=== PATIENT | male | born 1945 | race Caucasian/White ===

== ENCOUNTER → 2023-07-01 | Outpatient (CLI) | payer MEDICARE, OTHER, SELFPAY ==
--- NOTE | 2023-07-01 07:52 | MRI_ITS ---
STUDY: MRI LUMBAR SPINE WITHOUT CONTRAST REASON FOR EXAM: Male, 77 years old. RADICULOPATHY TECHNIQUE: Standardized fat and water weighted pulse sequences were obtained in the sagittal and axial planes. COMPARISON: None FINDINGS: T12-L1: Normal endplates. Normal disc height, hydration and morphology. Normal bilateral facet joints. Normal central canal and bilateral lateral recesses. Normal bilateral intervertebral neural foramina. Normal lumbar lordosis. There is no substantial scoliosis. Normal conus medullaris that terminates at the T12/L1. Chronic mild wedge compression fracture of the T11 vertebral body with kyphosis but no retropulsion into the spinal canal. L1-2: Mild bilateral facet hypertrophy and the ligament flavum hypertrophy. Mild bilobed disc protrusion asymmetric to the left produces mild spinal stenosis and mild left neural foraminal stenosis.. L2-3: Moderate bilateral facet hypertrophy and ligament flavum hypertrophy. Mild bilobed disc protrusion asymmetric to the right produces mild spinal stenosis, moderate right neural foraminal stenosis and mild left neural foraminal stenosis. L3-4: Moderate bilateral facet hypertrophy with fluid in the facet joints consistent with instability and severe ligament flavum hypertrophy. Moderate broad disc protrusion produces severe spinal stenosis with moderate bilateral neural foraminal stenosis. Furthermore, there is a 1.2 cm oval capsular synovial cyst extending from the anterior aspect of the right facet joint into the right neural martins producing severe right neural foraminal stenosis with effacement of the right L3 nerve root laterally. L4-5: Mild bilateral facet hypertrophy and moderate ligament flavum hypertrophy. Mild broad disc protrusion produces mild spinal stenosis and mild bilateral neural foraminal stenosis. L5-S1: Normal endplates. Normal disc height, hydration and morphology. Normal bilateral facet joints. Normal central canal and bilateral lateral recesses. Normal bilateral intervertebral neural foramina. Normal visualized sacral ala. Moderate friction related edema in the posterior subcutaneous fat. MRI/Spine Lumbar (Routine) IMPRESSION: Multilevel degenerative changes, as described above. Electronically Signed: Ethan Nation MD at 8:11 EST ,
--- OUTSIDE RECORDS SUMMARY | 2023-07-01 07:56 | XMS RPT_ITS | CCD ---
Author Name Unknown Address [address] [place] [address] Organization [facility] Care Team Providers Care General Cleaner Name Role Phone WillissusieBruna Unavailable Unavailable Scott Pal MD Unavailable Scott Pal MD Unavailable Lia PT, Caroline Unavailable John Garcia MD Unavailable Agnes Diaz MD Primary Care Provider Scott Pal MD Unavailable Scott Pal MD Unavailable Lia PT, Caroline Unavailable John Garcia MD Unavailable Agnes Diaz MD Primary Care Provider Scott Pal MD Unavailable Lia PT, Caroline Unavailable Agnes Diaz MD Primary Care Provider Scott Pal MD Unavailable Scott Pal MD Unavailable Lia PT, Caroline Unavailable John Garcia MD Unavailable Agnes Diaz MD Primary Care Provider Lia PT, Caroline Unavailable John Garcia MD Unavailable [phone] Bruna Chowdary Attending Unavailable Cebul III, Dr. Dirk Dobbins Primary Care Unava ilable Self, Referral Referring Unavailable Cebul III, Dr. Dirk Dobbins Primary Care Unava ilable ASIF AHUMADA Attending Unavailable Bruna Chowdary Referring Unavailable Lia PT, Caroline Unavailable [phone] PODLOGAR, MARILIA Referring Unavailable AGNES DIAZ Primary Care Unavailab le PODLOGAR, MARILIA Attending Unavailable AGNES DIAZ Primary Care Unavailab le PODLOGAR, MARILIA Referring Unavailable AGNES DIAZ Primary Care Unavailab le PODLOGAR, MARILIA Attending Unavailable AGNES DIAZ Primary Care Unavailab le PODLOGAR, MARILIA Referring Unavailable AGNES DIAZ Primary Care Unavailab le PODLOGAR, MARILIA Attending Unavailable AGNES DIAZ Primary Care Unavailab le GOLIAS, KVNG Attending Unavailable AGNES DIAZ Primary Care Unavailab le PODLOGAR, MARILIA Referring Unavailable PODLOGAR, MARILIA Referring Unavailable GOLIAS, KVNG Attending Unavailable AGNES DIAZ Primary Care Unavailab le PODLOGAR, MARILIA Referring Unavailable GOLIAS, KVNG Attending Unavailable AGNES DIAZ Primary Care Unavailab le GOLIAS, KVNG Attending Unavailable AGNES DIAZ Referring Unavailab le AGNES DIAZ Primary Care Unavailab le PODLOGAR, MARILIA Referring Unavailable GOLIAS, KVNG Attending Unavailable AGNES DIAZ Primary Care Unavailab le PODLOGAR, MARILIA Referring Unavailable GOLIAS, KVNG Attending Unavailable AGNES DIAZ Primary Care Unavailab le GOLIAS, KVNG Attending Unavailable AGNES DIAZ Primary Care Unavailab le PODLOGAR, MARILIA Referring Unavailable PODLOGAR, MARILIA Referring Unavailable GOLIASKVNG Attending Unavailable AGNES DIAZ Primary Care Unavailab le PODLOGAR, MARILIA Referring Unavailable Baylee'SHERRELL ANDERSON Attending Unavailable AGNES DIAZ Primary Care Unavailab le GOLIAS, KVNG Attending Unavailable AGNES DIAZ Primary Care Unavailab le PODLOGAR, MARILIA Referring Unavailable PODLOGAR, MARILIA Referring Unavailable AGNES DIAZ Primary Care Unavailab le Allergies Allergy Classification Reported Allergen(s) Allergy Type Date of Onset Reaction(s) Facility (3 sources) Azithromycin Drug Allergy 4 Dept. of Dermatology (20 sources) amLODIPine; Translations: [AMLODIPINE BESYLATE] Drug Allergy 7 Swelling [facility] (20 sources) Azithromycin; Translations: [AZITHROMYCIN] Drug Allergy 5 Itching [facility] Work Phone: (20 sources) Venom-Wasp; Translations: [VENOM-WASP] Propensity to adverse reactions 5 Swelling [facility] Work Phone: Medications Current Medications Medication Drug Class(es) Dates Sig (Normalized) Sig (Original) benzonatate 100 mg oral capsule (1 source) Non-narcotic Antitussive Start: 05-23-2022 End: 06-07-2022 take 1 capsule by mouth every eight hours as needed for cough benzonatate (TESSALON PERLE) 100 mg capsule Indications: URI, acute Take 1 capsule by mouth every 8 hours as needed for cough for up to 15 days. 30 capsule 0 05/23/2022 06/07/2022 Active Completed/Discontinued Medications Medication Drug Class(es) Dates Sig (Normalized) Sig (Original) 8 hr acetaminophen 650 mg extended release oral tablet (20 sources) acetaminophen 65 0 mg CR tablet Take 650 mg by mouth as needed. 0 Active Problems Active Problems Problem Classification Problem Date Documented Date Episodic/Chronic Administrative/social admission (1 source) Advance directive discussed with patient; Translations: [Other specified counseling] Episodic Chronic kidney disease (20 sources) Chronic kidney disease stage 3A ; Translations: [Stage 3a chronic kidney disease] Onset: 0 04-29-2020 Chronic Chronic kidney disease (2 sources) Chronic kidney disease; Translations: [Stage 3a chronic kidney disease (HCC)] Onset: 0 Coronary atherosclerosis and other heart disease (20 sources) Coronary arteriosclerosis; Translations: [Atherosclerotic heart disease of [place] coronary artery without angina pectoris] Onset: 7 09-14-2016 Chronic Delirium, dementia, and amnestic and other cognitive disorders (20 sources) Senile asthenia; Translations: [Age-related physical debility] Onset: 2 Chronic Disorders of lipid metabolism (20 sources) Hyperlipidemia; Translations: [Hyperlipidemia, unspecified] Onset: 7 09-14-2016 Chronic Essential hypertension (20 sources) Benign essential hypertension; Translations: [Essential (primary) hypertension] Onset: 5 05-13-2019 Chronic Hyperplasia of prostate (20 sources) Benign prostatic hypertrophy with outflow obstruction; Translations: [Benign prostatic hyperplasia with lower urinary tract symptoms] Onset: 7 05-10-2016 Chronic Immunizations and screening for infectious disease (3 sources) Vaccination needed; Translations: [Encounter for immunization] Onset: 4 Episodic Joint disorders and dislocations; trauma-related (20 sources) Derangement of right knee; Translations: [Unspecified internal derangement of right knee] Onset: 3 05-07-2012 Chronic Neoplasms of unspecified nature or uncertain behavior (8 sources) Neoplasm of unspecified behavior of bone, soft tissue, and skin; Translations: [Neoplasm of uncertain behavior of skin] Onset: 5 Episodic Osteoarthritis (20 sources) Arthritis of hip; Translations: [Unilateral primary osteoarthritis, unspecified hip] Onset: 9 06-08-2018 Chronic Other and unspecified benign neoplasm (6 sources) Hemangioma of skin and subcutaneous tissue Onset: 5 Episodic Other and unspecified benign neoplasm (9 sources) Melanocytic nevi of other parts of face Onset: 8 Episodic Other and unspecified benign neoplasm (3 sources) Melanocytic nevi of trunk Onset: 1 Episodic Other and unspecified benign neoplasm (12 sources) Melanocytic nevi of right upper limb, including shoulder Onset: 0 Episodic Other and unspecified benign neoplasm (3 sources) Melanocytic nevi of left upper limb, including shoulder Onset: 1 Episodic Other and unspecified benign neoplasm (3 sources) Melanocytic nevi of right lower limb, including hip Onset: 1 Episodic Other and unspecified benign neoplasm (3 sources) Melanocytic nevi of left lower limb, including hip Onset: 1 Episodic Other connective tissue disease (1 source) History of total hip arthroplasty; Translations: [Presence of right artificial hip joint] Chronic Other diseases of bladder and urethra (20 sources) Bladder neck obstruction; Translations: [Bladder-neck obstruction] Onset: 7 06-01-2006 Chronic Other diseases of kidney and ureters (20 sources) Renal mass; Translations: [Other specified disorders of kidney and ureter] Onset: 3 02-04-2013 Chronic Other ear and sense organ disorders (1 source) Acute otitis externa of right ear; Translations: [Unspecified acute noninfective otitis externa, right ear] Episodic Other hereditary and degenerative nervous system conditions (20 sources) Intention tremor; Translations: [Other specified forms of tremor] Onset: 3 05-07-2012 Chronic Other injuries and conditions due to external causes (1 source) At high risk for fall; Translations: [History of falling] Episodic Other nervous system disorders (20 sources) Bilateral carpal tunnel syndrome; Translations: [Carpal tunnel syndrome, bilateral upper limbs] Onset: 0 11-20-2019 Chronic Other nervous system disorders (1 source) Other chronic pain; Translations: [Chronic bilateral low back pain with bilateral sciatica] Onset: 3 Chronic Other non-epithelial cancer of skin (12 sources) Personal history of other malignant neoplasm of skin Onset: 9 Episodic Other nutritional; endocrine; and metabolic disorders (20 sources) Obesity; Translations: [Other obesity due to excess calories] Onset: 0 01-12-2021 Chronic Other nutritional; endocrine; and metabolic disorders (20 sources) Obese class II; Translations: [Obesity, unspecified] Onset: 0 04-29-2020 Chronic Other nutritional; endocrine; and metabolic disorders (20 sources) Body mass index 40+ - severely obese; Translations: [Morbid (severe) obesity due to excess calories] Onset: 3 Chronic Other nutritional; endocrine; and metabolic disorders (20 sources) Obesity caused by energy imbalance; Translations: [Other obesity due to excess calories] Onset: 0 01-12-2021 Chronic Other nutritional; endocrine; and metabolic disorders (1 source) Morbid (severe) obesity due to excess calories; Translations: [Obesity, Class III, 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)] Onset: 3 Chronic Other screening for suspected conditions (not mental disorders or infectious disease) (3 sources) Encounter for screening for malignant neoplasm of skin Onset: 1 Episodic Other skin disorders (3 sources) Actinic keratosis Onset: 1 Episodic Other skin disorders (6 sources) Actinic keratosis Onset: 6 Episodic Other skin disorders (6 sources) Other specified follicular disorders Onset: 7 Episodic Other skin disorders (6 sources) Other melanin hyperpigmentation Onset: 6 Episodic Other skin disorders (6 sources) Inflamed seborrheic keratosis Onset: 8 Episodic Other skin disorders (6 sources) Other seborrheic keratosis Onset: 6 Episodic Other upper respiratory infections (1 source) Acute upper respiratory infection; Translations: [Acute upper respiratory infection, unspecified] Episodic Residual codes; unclassified (20 sources) Obstructive sleep apnea syndrome; Translations: [Obstructive sleep apnea (adult) (pediatric)] Onset: 7 02-05-2021 Chronic Thyroid disorders (20 sources) Hypothyroidism; Translations: [Hypothyroidism, unspecified] Onset: 9 04-30-2015 Chronic Unclassified (3 sources) Verruca Onset: 1 Unclassified (3 sources) Angioma Onset: 1 Unclassified (3 sources) Chronic solar damage Onset: 1 Unclassified (3 sources) Seborrheic Keratosis Onset: 1 Unclassified (3 sources) Lentigines Onset: 1 Past or Other Problems Problem Classification Problem Date Documented Date Episodic/Chronic Diabetes mellitus without complication (3 sources) Increased glucose level; Translations: [Other abnormal glucose] Onset: 11-02-2022 Episodic Genitourinary symptoms and ill-defined conditions (20 sources) Nocturia; Translations: [Nocturia] Onset: 01-15-2013 01-15-2013 Episodic Other connective tissue disease (20 sources) Diastasis recti; Translations: [Separation of muscle (nontraumatic), other site] Onset: 10-09-2013 10-09-2013 Episodic Other connective tissue disease (20 sources) Pain in buttock; Translations: [Myalgia, other site] Onset: 02-04-2019 02-04-2019 Episodic Other diseases of kidney and ureters (20 sources) Complex renal cyst; Translations: [Cyst of kidney, acquired] Onset: 02-14-2013 02-14-2013 Episodic Other diseases of veins and lymphatics (20 sources) Peripheral venous insufficiency; Translations: [Venous insufficiency (chronic) (peripheral)] Onset: 04-29-2020 04-29-2020 Episodic Other injuries and conditions due to external causes (20 sources) History of fall; Translations: [History of falling] Onset: 12-08-2021 Episodic Other lower respiratory disease (3 sources) Mass of right lower lobe of lung; Translations: [Other nonspecific abnormal finding of lung field] Onset: 02-04-2013 02-04-2013 Episodic Other lower respiratory disease (20 sources) Other nonspecific abnormal finding of lung field; Translations: [Swelling, mass, or lump in chest] Onset: 02-04-2013 02-04-2013 Episodic Other non-traumatic joint disorders (20 sources) Ankle edema; Translations: [Effusion, right ankle] Onset: 02-04-2019 02-04-2019 Episodic Pancreatic disorders (not diabetes) (20 sources) Mass of pancreas; Translations: [Other specified diseases of pancreas] Onset: 05-12-2014 05-12-2014 Episodic Residual codes; unclassified (20 sources) Bilateral lower limb edema; Translations: [Localized edema] Onset: 04-29-2020 04-29-2020 Episodic Residual codes; unclassified (1 source) Localized edema; Translations: [Bilateral leg edema] Onset: 04-29-2020 Episodic Spondylosis; intervertebral disc disorders; other back problems (20 sources) Cervical radiculopathy; Translations: [Radiculopathy, cervical region] Onset: 02-08-2021 Episodic Unclassified (3 sources) Onset: 02-14-2014 Unclassified (3 sources) Onset: 02-14-2014 Unclassified (3 sources) Onset: 02-14-2014 Unclassified (3 sources) Onset: 02-14-2014 Results Test Name Value Interpretation Reference Range Facil ity Vital Signs Date Time Vital Sign Value Performing Clinician Caprice jalloh 06-16-2023 11:38-0500 Diastolic blood pressure 97 mm[Hg] Marilia Orozco APRN.CNP Work Phone: [facility] 06-16-2023 11:38-0500 Heart rate 66 /min Marilia Podlogar COPYRIGHT EXPERT.COMMISSARY HELPER Work Phone: [facility] 06-16-2023 11:38-0500 Systolic blood pressure 161 mm[Hg] Marilia Podlogar COPYRIGHT EXPERT.COMMISSARY HELPER Work Phone: [facility] 06-16-2023 10:49-0500 Body weight 133.81 kg Marilia Podlogar COPYRIGHT EXPERT.COMMISSARY HELPER Work Phone: [facility] 06-16-2023 10:49-0500 Respiratory rate 18 /min Marilia Podlogar COPYRIGHT EXPERT.COMMISSARY HELPER Work Phone: [facility] 06-16-2023 10:49-0500 SaO2% (BldA) [Mass fraction] 97 % Marilia Podlogar COPYRIGHT EXPERT.COMMISSARY HELPER Work Phone: [facility] 11-02-2022 08:38-0400 Body weight 132.27 kg Marilia Podlogar COPYRIGHT EXPERT.COMMISSARY HELPER Work Phone: [facility] 11-02-2022 08:38-0400 Diastolic blood pressure 86 mm[Hg] Marilia Podlogar COPYRIGHT EXPERT.COMMISSARY HELPER Work Phone: [facility] 11-02-2022 08:38-0400 Heart rate 60 /min Marilia Podlogar COPYRIGHT EXPERT.COMMISSARY HELPER Work Phone: [facility] 11-02-2022 08:38-0400 Respiratory rate 18 /min Marilia Podlogar COPYRIGHT EXPERT.COMMISSARY HELPER Work Phone: [facility] 11-02-2022 08:38-0400 SaO2% (BldA) [Mass fraction] 96 % Marilia Podlogar COPYRIGHT EXPERT.COMMISSARY HELPER Work Phone: [facility] 11-02-2022 08:38-0400 Systolic blood pressure 132 mm[Hg] Marilia Podlogar COPYRIGHT EXPERT.COMMISSARY HELPER Work Phone: [facility] 05-23-2022 11:01-0500 Body temperature 97.59 [degF] Ignacio Campos MD Work Phone: [facility] 05-23-2022 11:01-0500 Body weight 127.46 kg Ignacio Campos MD Work Phone: [facility] 05-23-2022 11:01-0500 Diastolic blood pressure 76 mm[Hg] Ignacio Campos MD Work Phone: [facility] 05-23-2022 11:01-0500 Heart rate 94 /min Ignacio Campos MD Work Phone: [facility] 05-23-2022 11:01-0500 Respiratory rate 18 /min Ignacio Campos MD Work Phone: [facility] 05-23-2022 11:01-0500 SaO2% (BldA) [Mass fraction] 97 % Ignacio Campos MD Work Phone: [facility] 05-23-2022 11:01-0500 Systolic blood pressure 122 mm[Hg] Ignacio Campos MD Work Phone: [facility] 04-13-2022 10:17-0500 Diastolic blood pressure 84 mm[Hg] Agnes Diaz MD Work Phone: [facility] 04-13-2022 10:17-0500 Systolic blood pressure 138 mm[Hg] Agnes Diaz MD Work Phone: [facility] 04-13-2022 09:20-0500 Body height 177.8 cm Agens Diaz MD Work Phone: [facility] 04-13-2022 09:20-0500 Body weight 128.37 kg Agnes Diaz MD Work Phone: [facility] 04-13-2022 09:20-0500 Heart rate 62 /min Agnes Diaz MD Work Phone: [facility] 04-13-2022 09:20-0500 Respiratory rate 18 /min Agnes Diaz MD Work Phone: [facility] 02-11-2022 08:48-0400 Body temperature 97.11 [degF] Wade Marquez Jr., MD Work Phone: [facility] 02-11-2022 08:48-0400 Body weight 124.74 kg Wade Marquez Jr., MD Work Phone: [facility] 02-11-2022 08:48-0400 Diastolic blood pressure 73 mm[Hg] Wade Marquez Jr., MD Work Phone: [facility] 02-11-2022 08:48-0400 Heart rate 78 /min Wade Marquez Jr., MD Work Phone: [facility] 02-11-2022 08:48-0400 Respiratory rate 18 /min Wade Marquez Jr., MD Work Phone: [facility] 02-11-2022 08:48-0400 SaO2% (BldA) [Mass fraction] 97 % Wade Marquez Jr., MD Work Phone: [facility] 02-11-2022 08:48-0400 Systolic blood pressure 120 mm[Hg] Wade Marquez Jr., MD Work Phone: [facility] 12-08-2021 11:00-0400 Diastolic blood pressure 86 mm[Hg] Kvng Golias PT Work Phone: [facility] 12-08-2021 11:00-0400 Systolic blood pressure 124 mm[Hg] Kvng Golias PT Work Phone: [facility] 11-11-2021 09:32-0400 Body temperature 97.39 [degF] Tri Athy PA-C Work Phone: [facility] 11-11-2021 09:32-0400 Body weight 130.64 kg Tri Athy PA-C Work Phone: [facility] 11-11-2021 09:32-0400 Diastolic blood pressure 90 mm[Hg] Tri Athy PA-C Work Phone: [facility] 11-11-2021 09:32-0400 Heart rate 72 /min Tri Athy PA-C Work Phone: [facility] 11-11-2021 09:32-0400 Respiratory rate 20 /min Tri Warner DRAKE Work Phone: [facility] 11-11-2021 09:32-0400 SaO2% (BldA) [Mass fraction] 97 % Tri Warner DRAKE Work Phone: [facility] 11-11-2021 09:32-0400 Systolic blood pressure 140 mm[Hg] Tri Warner DRAKE Work Phone: [facility] 1945 00:00-0400 >na< Bruna Chowdary Dept. of Dermatology Encounters Encounter Date Encounter Type Care Provider Facility Start: 06-22-2023 Telephone encounter Salvador Diaz MD Work Phone: [facility] Procedures Date Procedure Procedure Detail Performing Clinician Start: 01-05-2023 Tangential biopsy sk in single lesion Bruna Chowdary Start: 11-07-2022 Echo tthrc r-t 2d w/wom-mode compl spec&colr d Marilia Podlogar COPYRIGHT EXPERT.COMMISSARY HELPER Work Phone: Start: 11-07-2022 LVEF TRANSTHORACIC ECHO Marilia Podlogar COPYRIGHT EXPERT.COMMISSARY HELPER Work Phone: Start: 12-01-2021 Adult depression scr eening assessment Agnes Diaz MD Work Phone: Start: 07-30-2020 Adult depression scr eening assessment Agnes Diaz MD Work Phone: Start: 11-22-2017 Destruction benign l esions up to 14 Bruna Chowdary Start: 11-22-2017 Established Office V isit Level 4 Bruna Chowdary Start: 02-11-2016 Destruction premalig nant lesion 1st Bruna Chowdary Start: 03-09-2015 Bx skin subcutaneous&/mucous membrane 1 lesion Bruna Chowdary Start: 03-09-2015 Established Office V isit Level 4 Bruna Chowdary Plan of Treatment Date Care Activity Detail Author Start: 07-31-2029 Urine microalbumin profile [facility] Start: 05-15-2026 Diabetes Screening Diabetes Screening [facility] Start: 11-02-2025 DIABETES SCREEN DIABETES SCREEN [facility] Start: 11-02-2025 Diabetes Screening Diabetes Screening [facility] Start: 04-13-2025 DIABETES SCREEN DIABETES SCREEN [facility] Start: 12-01-2024 DIABETES SCREEN DIABETES SCREEN [facility] Start: 07-12-2024 DIABETES SCREEN DIABETES SCREEN [facility] Start: 06-16-2024 Annual PCP Team Chronic Disease Visit Annual PCP Team Chronic Disease Visit [facility] Start: 05-15-2024 Creatinine measurement Serum Creatinine [facility] Start: 11-03-2023 ANNUAL PCP TEAM CHRONIC DISEASE VISIT ANNUAL PCP TEAM CHRONIC DISEASE VISIT [facility] Start: 11-03-2023 Complete blood count Hemoglobin/Hematocrit [facility] Start: 11-03-2023 HEMOGLOBIN/HEMATOCRIT HEMOGLOBIN/HEMATOCRIT [facility] Start: 11-03-2023 Hepatitis B surface antibody level LDL CHOLESTEROL [facility] Start: 11-03-2023 SERUM CREATININE SERUM CREATININE [facility] Start: 05-23-2023 BP CONTROLLED (<130/80) BP CONTROLLED (<130/80) [facility] Start: 05-01-2023 Advance Directive Discussion Advance Directive Discussion [facility] Start: 05-01-2023 Depression Assessment Depression Assessment [facility] Start: 04-13-2023 ANNUAL PCP TEAM CHRONIC DISEASE VISIT ANNUAL PCP TEAM CHRONIC DISEASE VISIT [facility] Start: 04-13-2023 SERUM CREATININE SERUM CREATININE [facility] Start: 02-11-2023 BP CONTROLLED (<130/80) BP CONTROLLED (<130/80) [facility] Start: 12-30-2022 Covid-19 Vaccine () Covid-19 Vaccine () [facility] Start: 12-30-2022 Influenza vaccination [facility] Start: 12-01-2022 Adult depression screening assessment DEPRESSION SCREENING [facility] Start: 12-01-2022 ANNUAL PCP TEAM CHRONIC DISEASE VISIT ANNUAL PCP TEAM CHRONIC DISEASE VISIT [facility] Start: 12-01-2022 SERUM CREATININE SERUM CREATININE [facility] Start: 07-12-2022 ANNUAL PCP TEAM CHRONIC DISEASE VISIT ANNUAL PCP TEAM CHRONIC DISEASE VISIT [facility] Start: 07-12-2022 BP CONTROLLED (<130/80) BP CONTROLLED (<130/80) [facility] Start: 07-12-2022 HEMOGLOBIN/HEMATOCRIT HEMOGLOBIN/HEMATOCRIT [facility] Start: 07-12-2022 Hepatitis B surface antibody level LDL CHOLESTEROL [facility] Start: 07-12-2022 SERUM CREATININE SERUM CREATININE [facility] Start: 06-19-2022 COVID-19 VACCINE (7 - Pfizer series) COVID-19 VACCINE (7 - Pfizer series) [facility] Start: 05-23-2022 End: 06-06-2022 Influenza virus A and B RNA and SARS-CoV-2 (COVID-19) N gene panel - Respiratory specimen by DANNIELLE with probe detection [facility] Work Phone: Immunizations Immunization Date Immunization Notes Care Provider Fa cility 05-15-2023 COVID-19 vaccine, ag e 12+ yr, season (PFIZER-BIONTECH) Marilia Podlogar COPYRIGHT EXPERT.COMMISSARY HELPER Work Phone: [facility] 05-15-2023 influenza (HD-IIV4) vaccine, age 65+ yr, high dose, quadrivalent, PF (FLUZONE HIGH-DOSE) Marilia Podlogar COPYRIGHT EXPERT.COMMISSARY HELPER Work Phone: [facility] 05-06-2023 respiratory syncytia l virus (RSV) vaccine, adjuvanted (AREXVY) Marilia Podlogar COPYRIGHT EXPERT.COMMISSARY HELPER Work Phone: [facility] 03-03-2022 zoster vaccine recombinant Anusha Trevino MA [facility] 02-16-2022 influenza, high-dose , quadrivalent vaccine (FLUZONE HIGH DOSE QUADRIVALENT) Agnes Diaz MD Work Phone: [facility] 02-16-2022 influenza virus vaccine, unspecified formulation Wade Marquez Jr., MD Work Phone: [facility] 10-19-2021 zoster vaccine recombinant Mi Nurse Work Phone: [facility] Work Phone: 09-22-2021 COVID-19 original vaccine, age 12+ yr, monovalent (PFIZER-BIONTECH - AGUIAR TOP) Agnes Diaz MD Work Phone: [facility] 09-22-2021 COVID-19 vaccine, ag e 12+ yr (PFIZER-BIONTECH - PURPLE TOP) Agnes Diaz MD Work Phone: [facility] 01-12-2021 influenza, high-dose , quadrivalent vaccine (FLUZONE HIGH DOSE QUADRIVALENT) Agnes Diaz MD Work Phone: [facility] 07-17-2020 COVID-19 vaccine, ag e 12+ yr (PFIZER-BIONTECH - PURPLE TOP) Agnes Diaz MD Work Phone: [facility] 06-26-2020 COVID-19 vaccine, ag e 12+ yr (PFIZER-BIONTECH - PURPLE TOP) Agnes Diaz MD Work Phone: [facility] 02-22-2020 influenza, high-dose , quadrivalent vaccine (FLUZONE HIGH DOSE QUADRIVALENT) Agnes Diaz MD Work Phone: [facility] 08-01-2019 tetanus toxoid, redu sakshi diphtheria toxoid, and acellular pertussis vaccine, adsorbed Agnes Diaz MD Work Phone: [facility] 02-05-2019 influenza, high dose seasonal, preservative-free Agnes Diaz MD Work Phone: [facility] 01-29-2018 influenza virus vaccine, unspecified formulation Agnes Diaz MD Work Phone: [facility] 06-09-2017 influenza, high dose isabell, preservative-free Agnes Diaz MD Work Phone: [facility] Work Phone: 05-10-2016 pneumococcal conjuga te vaccine, 13 valent Agnes Diaz MD Work Phone: [facility] 02-20-2016 influenza, high dose seasonal, preservative-free Agnes Diaz MD Work Phone: [facility] 02-19-2015 influenza, high dose seasonal, preservative-free Agnes Diaz MD Work Phone: [facility] Work Phone: 02-05-2014 influenza, seasonal, injectable Agnes Diaz MD Work Phone: [facility] 03-04-2013 zoster vaccine, live Marcelo Diaz MD Work Phone: [facility] 02-09-2013 influenza virus vaccine, unspecified formulation Agnes Diaz MD Work Phone: [facility] 04-11-2012 influenza virus vaccine, unspecified formulation Agnes Diaz MD Work Phone: [facility] 03-14-2011 influenza virus vaccine, unspecified formulation Agnes Diaz MD Work Phone: [facility] Work Phone: 03-08-2010 influenza virus vaccine, unspecified formulation Agnes Diaz MD Work Phone: [facility] 03-08-2010 pneumococcal polysaccharide vaccine, 23 valent Agnes Diaz MD Work Phone: [facility] 02-06-2009 influenza virus vaccine, unspecified formulation Agnes Diaz MD Work Phone: [facility] Work Phone: 10-04-2007 tetanus toxoid, redu sakshi diphtheria toxoid, and acellular pertussis vaccine, adsorbed Agnes Diaz MD Work Phone: [facility] Work Phone: 04-14-2006 influenza virus vaccine, unspecified formulation Agnes iDaz MD Work Phone: [facility] Work Phone: 1945 pneumococcal conjuga te vaccine, 7 valent [facility] Payers Date Payer Category Payer Private Health Insurance [facility] AARP SUPPLEMENT [id number] 2017-Present [phone] [address] [place] [address] Indemnity [id number] 2017 Private Health Insurance [facility] AARP SUPPLEMENT [id number] 2017-Present [phone] [address] [place] [address] Indemnity [id number] 2017 Unknown [id number] 2009 Medicare MEDICARE MEDICAR E A AND B [id number] 2009-Present [phone] [place] [address] Medicare [id number] 2009 Medicare MEDICARE MEDICAR E A AND B [id number] 2009-Present [phone] [place] [address] Medicare [id number] 2009 Medicare [id number] 1945 Unknown [id number] 1945 Unknown [id number] Social History Date Type Detail Facility Start: 01-01-2021 Dept. of Dermatology Start: 1945 End: 1945 Sex Assigned At Male [facility] Start: 04-28-2011 End: 02-11-2022 Tobacco smoking status NHIS Never smoked tobacco [facility] Start: 07-12-2021 End: 06-16-2023 Alcohol intake Current non-drinker of alcohol (finding) [facility] Start: 01-13-2020 End: 10-27-2022 History SDOH Alcohol Frequency 1 [facility] Start: 01-13-2020 History SDOH Alcohol Std Drinks 98 [facility] Start: 11-18-2019 End: 10-27-2022 History SDOH Social Connections Phone 5 [facility] Start: 11-18-2019 End: 10-27-2022 History SDOH Social Connections Get Together 2 [facility] Start: 11-18-2019 End: 10-27-2022 History SDOH Social Connections Synagogue 3 [facility] Start: 11-18-2019 History SDOH Physical Activity DPW 6 [facility] Start: 10-08-2021 End: 02-11-2022 Exposure to SARS-CoV-2 (event) Not sure [facility] Work Phone: Start: 04-28-2011 End: 02-11-2022 Tobacco use and exposure Smokeless tobacco non-user [facility] Start: 10-27-2022 History SDOH Alcohol Std Drinks 0 [facility] Start: 10-27-2022 History SDOH Social Connections Get Together 4 [facility] Start: 04-13-2022 End: 10-27-2022 History of Social function [facility] Start: 04-13-2022 End: 10-27-2022 Social connection and isolation panel [facility] Do you belong to any clubs or organizations such as restoration groups, unions, fraternal or athletic groups, or school groups? Yes [facility] Are you now , , , , never or living with a partner? [facility] How often to you hav e a drink containing alcohol? Never [facility] How many standard dr inks containing alcohol do you have on a typical day? Patient does not drink [facility] Do you feel stress - tense, restless, nervous, or anxious, or unable to sleep at night because your mind is troubled all the time - these days [OSQ] Not at all [facility] (I/We) worried denny er (my/our) food would run out before (I/we) got money to buy more. Never true [facility] In the past 12 month s, was there a time when you were not able to pay the mortgage or rent on time? No [facility] Start: 07-31-2018 Gender identity Identifies as male gender (finding) [facility] Start: 12-28-2020 Sexual orientation Heterosexual (finding) [facility] Medical Equipment Procedure Code Equipment Code Equipment Origin al Text Equipment Identifier Dates Liner 36mm 0d F X3 7.9mm Acetabular [facility] - [id number] Start: 06-03-2019 Trident Solidback?Acetabular Shell 58mm F [id number] Start: 06-03-2019 Head V40 36mm 0m m Offset Taper Biolox Delta Femoral Hip - [id number] Start: 06-03-2019 Stem Accolade Ii 6 127d Femoral - [id number] Start: 06-03-2019 Goals Date Patient Goal Desired Activity /State Clinical Notes 06-03-2019 to 06-22-2023 Telephone Encounter - Lissette Malagon RN - 06/22/2023 3:28 PM Eunice Brock LPN - 06/16/2023 11:39 AM Marilia Wan APRN.RUBÉN - 06/16/2023 10:40 AM EST Note Date & Type Note Facility 06-22-2023 Miscellaneous Notes Patient calls frustrated about the MRI of his back that hasn't been scheduled. Patient reports that MRI was recommended by Dr. Cabezas who was forwarding information to Dr. Diaz to have it ordered. Orders found in scanned documents. Scheduling to reach out to patient to schedule. Called patient back to let him know orders were received and scheduling would contact him. Patient verbalizes understanding. Lissette Malagon RN documented in this encounter [facility] 06-16-2023 Note HNO ID: [id number] Author: MARILIA OROZCO APRN.RUBÉN Service: ? Author Type: Nurse Practitioner Type: Progress Notes Filed: 06/16/2023 13:18 Note Text: 06/16/2023 Patient presents with: Follow Up: 1 month SUBJECTIVE: This is a 77 year old that is here today for Above Complaints. Blood pressure elevate at last office visit. No medication changes made at that time. Not checking at home. Reports he has noticed a low level headache for the last 2-3 weeks. 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, S/P SUSAN ASHD (arteriosclerotic heart disease) 09/14/2016 Bilateral carpal tunnel syndrome Bilateral lower extremity edema 2/2 venous insufficiency BPH (benign prostatic hyperplasia) Class 2 obesity due to excess calories with body mass index (BMI) of 38.0 to 38.9 in adult Diverticulosis of colon (without mention of hemorrhage) Essential hypertension, benign Hyperlipidemia LDL goal <100 09/14/2016 Hypothyroidism Intention tremor 05/07/2012 Internal derangement of right knee 05/07/2012 Mass of pancreas 05/12/2014 stable, cystic Obstructive sleep apnea DME [facility] for AutoPAP 09/17 PMH - PAST MEDICAL HISTORY OF vitreous degeneration Prediabetes 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 Chowdary in [place] Stage 3a chronic kidney disease (HCC) Venous insufficiency ALLERGIES Norvasc [Amlodipine Besylate], Venom-Wasp, and Zithromax [Azithromycin] MEDICATIONS Current Outpatient Medications Medication Sig atorvastatin (LIPITOR) 40 mg tablet Take 1 tablet by mouth once daily. levothyroxine (SYNTHROID) 125 mcg tablet TAKE 1 TABLET BY MOUTH EVERY DAY ON AN EMPTY STOMACH FOR THYROID lisinopril (ZESTRIL) 40 mg tablet Take 1 tablet by mouth once daily. metoprolol succinate ER (TOPROL XL) 25 mg 24 hr tablet Take 1 tablet by mouth once daily. hydroCHLOROthiazide 25 mg tablet Take 1 tablet by mouth once daily. naproxen sodium (ALEVE) 220 mg tablet Take 220 mg by mouth twice daily with meals. amoxicillin (POLYMOX, AMOXIL) 500 mg capsule Take four capsules one hour before dental procedure. CPAP AutoPAP [id number]. Mask per preference, tubing, filters, humidity. Lif[employer] Supplies. Dx: G47.33. Fax 30 day compliance report to [phone]. CPAP Please provide mask fitting. Pt with subjective and some degree objective leaks. Prefers nasal type mask. Thank you. DME = [facility] acetaminophen 650 mg CR tablet Take 650 mg by mouth as needed. aspirin, enteric coated (ASPIRIN, ENTERIC COATED) 81 mg EC tablet Take 81 mg by mouth once daily. MULTIVITAMIN,TX-MINERALS ORAL TAB Take one(1) tablet daily. Current Facility-Administered Medications Medication Dose Route Frequency perflutren lipid microspheres 1.3 mL in NaCl (PF) 0.9% 10 mL injection (DEFINITY) INTRAVENOUS DIRECTED PRN sodium chloride 0.9 % (flush) 10 mL (BD POSIFLUSH) 10 mL INTRAVENOUS DIRECTED PRN Medications and allergies reviewed by this provider. SOCIAL HISTORY Social History Tobacco Use Smoking status: Never Smokeless tobacco: Never Vaping Use Vaping Use: Never used Substance Use Topics Alcohol use: No Drug use: No REVIEW OF SYSTEMS All other reviewed and negative other than HPI. OBJECTIVE: BP 154/88 Pulse 69 Resp 18 Wt 133.8 kg (295 lb) SpO2 97% BMI 42.33 kg/m? . Vital signs reviewed by this provider. APPEARANCE Well appearing, alert, in no acute distress, well-hydrated, well nourished. BP Controlled (<130/80) due on 07/30/2021 Advance Directive Discussion Never done Depression Assessment due on 05/01/2023 LDL Cholesterol due on 11/03/2023 Hemoglobin/Hematocrit due on 11/03/2023 Serum Creatinine due on 05/15/2024 Annual PCP Team Chronic Disease Visit due on 06/16/2024 Diabetes Screening due on 05/15/2026 DTaP,Tdap,Td Vaccine(3 - Td or Tdap) due on 07/31/2029 Influenza Vaccine Completed RSV Vaccine Completed Hepatitis C Screening Completed Shingrix Vaccine Completed Covid-19 Vaccine Completed Pneumococcal Vaccine: 65+ Completed Colorectal Cancer Screening Discontinued ASSESSMENT/PLAN: 1. Essential hypertension, benign - ICD9: 401.1, ICD10: I10 - Uncontrolled - Increase metoprolol succinate - Recommend home blood pressure monitoring, to bring results to next visit - Encouraged sodium restriction, DASH or Mediterranean diet - Recommend regular aerobic exercise - Discussed need for and benefit of weight loss. BMI 42.33 kg/(m2) - Follow up in 4 weeks for hypertension visit - METOPROLOL SUCCINATE ER 50 MG TABLET,EXTENDED RELEASE 24 HR Marilia Orozco, COPYRIGHT EXPERT.RUBÉN Prescription instructions reviewed with patient as applicable. Patient advised if symptoms do not improve or if symptoms worsen sooner, to contact their primary care physician. Potent (more content not included)... [facility] 06-16-2023 Nurse Note ALESSIA BP average: BP 161/97 P 66 #1 BP 152/89 P 68 #2 BP 161/98 P 67 #3 BP 155/96 P 66 #4 BP 154/92 P 66 #5 BP 168/96 P 67 #6 BP 166/102 P 67 Eunice Bruce LPN documented in this encounter [facility] 06-16-2023 History of Present illness Narrative 06/16/2023 Patient presents with: Follow Up: 1 month SUBJECTIVE: This is a 77 year old that is here today for Above Complaints. Blood pressure elevate at last office visit. No medication changes made at that time. Not checking at home. Reports he has noticed a low level headache for the last 2-3 weeks. 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, S/P SUSAN ASHD (arteriosclerotic heart disease) 09/14/2016 Bilateral carpal tunnel syndrome Bilateral lower extremity edema 2/2 venous insufficiency BPH (benign prostatic hyperplasia) Class 2 obesity due to excess calories with body mass index (BMI) of 38.0 to 38.9 in adult Diverticulosis of colon (without mention of hemorrhage) Essential hypertension, benign Hyperlipidemia LDL goal <100 09/14/2016 Hypothyroidism Intention tremor 05/07/2012 Internal derangement of right knee 05/07/2012 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 Chowdary in [place] Stage 3a chronic kidney disease (HCC) Venous insufficiency ALLERGIES Norvasc [Amlodipine Besylate], Venom-Wasp, and Zithromax [Azithromycin] MEDICATIONS Current Outpatient Medications Medication Sig atorvastatin (LIPITOR) 40 mg tablet Take 1 tablet by mouth once daily. levothyroxine (SYNTHROID) 125 mcg tablet TAKE 1 TABLET BY MOUTH EVERY DAY ON AN EMPTY STOMACH FOR THYROID lisinopril (ZESTRIL) 40 mg tablet Take 1 tablet by mouth once daily. metoprolol succinate ER (TOPROL XL) 25 mg 24 hr tablet Take 1 tablet by mouth once daily. hydroCHLOROthiazide 25 mg tablet Take 1 tablet by mouth once daily. naproxen sodium (ALEVE) 220 mg tablet Take 220 mg by mouth twice daily with meals. amoxicillin (POLYMOX, AMOXIL) 500 mg capsule Take four capsules one hour before dental procedure. CPAP AutoPAP [id number]. Mask per preference, tubing, filters, humidity. Lifetime Supplies. Dx: G47.33. Fax 30 day compliance report to [phone]. CPAP Please provide mask fitting. Pt with subjective and some degree objective leaks. Prefers nasal type mask. Thank you. DME = [facility] acetaminophen 650 mg CR tablet Take 650 mg by mouth as needed. aspirin, enteric coated (ASPIRIN, ENTERIC COATED) 81 mg EC tablet Take 81 mg by mouth once daily. MULTIVITAMIN,TX-MINERALS ORAL TAB Take one(1) tablet daily. Current Facility-Administered Medications Medication Dose Route Frequency perflutren lipid microspheres 1.3 mL in NaCl (PF) 0.9% 10 mL injection (DEFINITY) INTRAVENOUS DIRECTED PRN sodium chloride 0.9 % (flush) 10 mL (BD POSIFLUSH) 10 mL INTRAVENOUS DIRECTED PRN Medications and allergies reviewed by this provider. SOCIAL HISTORY Social History Tobacco Use Smoking status: Never Smokeless tobacco: Never Vaping Use Vaping Use: Never used Substance Use Topics Alcohol use: No Drug use: No REVIEW OF SYSTEMS All other reviewed and negative other than HPI. OBJECTIVE: BP 154/88 Pulse 69 Resp 18 Wt 133.8 kg (295 lb) SpO2 97% BMI 42.33 kg/m . Vital signs reviewed by this provider. APPEARANCE Well appearing, alert, in no acute distress, well-hydrated, well nourished. BP Controlled (<130/80) due on 07/30/2021 Advance Directive Discussion Never done Depression Assessment due on 05/01/2023 LDL Cholesterol due on 11/03/2023 Hemoglobin/Hematocrit due on 11/03/2023 Serum Creatinine due on 05/15/2024 Annual PCP Team Chronic Disease Visit due on 06/16/2024 Diabetes Screening due on 05/15/2026 DTaP,Tdap,Td Vaccine(3 - Td or Tdap) due on 07/31/2029 Influenza Vaccine Completed RSV Vaccine Completed Hepatitis C Screening Completed Shingrix Vaccine Completed Covid-19 Vaccine Completed Pneumococcal Vaccine: 65+ Completed Colorectal Cancer Screening Discontinued ASSESSMENT/PLAN: 1. Essential hypertension, benign - ICD9: 401.1, ICD10: I10 - Uncontrolled - Increase metoprolol succinate - Recommend home blood pressure monitoring, to bring results to next visit - Encouraged sodium restriction, DASH or Mediterranean diet - Recommend regular aerobic exercise - Discussed need for and benefit of weight loss. BMI 42.33 kg/(m^2) - Follow up in 4 weeks for hypertension visit - METOPROLOL SUCCINATE ER 50 MG TABLET,EXTENDED RELEASE 24 HR Marilia Orozco APRN.CNP Prescription instructions reviewed with patient as applicable. Patient advised if symptoms do not improve or if symptoms worsen sooner, to contact their primary care physician. Potential red flag symptoms discussed with the patient. Reviewed appropriate action plan to take if red flag symptoms occur. Patient agreeable to treatment plan. Medical Decision Making: Problems: Moderate: 1+ chronic illnesses with change Risk: Moderate: Drug management Medical Decision Making Level: 4 - Moderate documented in this encounter [facility] 05-15-2023 Note HNO ID: [id number] Author: KAREN ARTEAGA RT(Tarah) Service: Radiology Author Type: Technologist Type: Progress Notes Filed: 05/15/2023 10:18 Note Text: Radiology Service Progress Note PATIENT NAME: Fran Lopez DATE OF SERVICE: May 15, 2023 TIME: 10:09 AM PATIENT IDENTITY VERIFICATION COMPLETED USING TWO (2) IDENTIFIERS: Name and Date of confirmed by patient verbally. FALL SCREENING: Has the patient had 2 falls in the last year or 1 fall with injury or currently using an Ambulatory Assistive Device (Walker, Cane, Wheelchair, Crutches, etc.)? No PATIENT GENDER DATA: Male PATIENT RELEVANT IMPLANT DATA REVIEWED: Yes RADIOLOGY DEPARTMENT: General X-ray: Exam(s) Completed: Spine X-Ray(s): Lumbar AP / LAT / L5-S1 PERIPHERAL IV DATA: Not applicable SIGNED BY: RT Robby(R) May 15, 2023 10:09 AM [facility] 05-15-2023 Note HNO ID: [id number] Author: MARILIA OROZCO APRN.CNP Service: ? Author Type: Nurse Practitioner Type: Progress Notes Filed: 05/15/2023 10:24 Note Text: 05/15/2023 Patient presents with: F/U 6 months SUBJECTIVE: This is a 77 year old that is here today for Above Complaints. Since last office visit has been in good health without ER visits or hospitalizations. MARTIN: wearing CPAP nightly. Sleeping well and feels refreshed in the morning HYPOTHYROIDISM: taking synthroid as prescribed without side effects HTN: Patient is compliant with meds Yes Monitors bp at home: No. Denies side effects: No. Chest pain: No. Dyspnea: No. Edema: Yes- chronic Palpitations: No. Syncope: No. Headache: No. Dizziness: No. Still with low back pain. Goes down both butt cheeks and legs. Pain is sharp. Hard to get going in the morning. Uses tylenol for the most part. Has to use Aleve on Sundays due to he is a m[employer] worker and has to stand. Completed six weeks of therapy without much change. Would like to see spine center. Denies past injury or surgery, extremity numbness, tingling, weakness, saddle anaesthesia, urinary/bowel incontinence or inability. 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 Chowdary in [place] Stage 3a chronic kidney disease (HCC) Venous insufficiency ALLERGIES Norvasc [Amlodipine Besylate], Venom-Wasp, and Zithromax [Azithromycin] MEDICATIONS Current Outpatient Medications Medication Sig levothyroxine (SYNTHROID) 125 mcg tablet TAKE 1 TABLET BY MOUTH EVERY DAY ON AN EMPTY STOMACH FOR THYROID atorvastatin (LIPITOR) 40 mg tablet Take 1 tablet by mouth once daily. lisinopril (ZESTRIL) 40 mg tablet Take 1 tablet by mouth once daily. metoprolol succinate ER (TOPROL XL) 25 mg 24 hr tablet Take 1 tablet by mouth once daily. hydroCHLOROthiazide 25 mg tablet Take 1 tablet by mouth once daily. naproxen sodium (ALEVE) 220 mg tablet Take 220 mg by mouth twice daily with meals. amoxicillin (POLYMOX, AMOXIL) 500 mg capsule Take four capsules one hour before dental procedure. CPAP AutoPAP [id number]. Mask per preference, tubing, filters, humidity. Lif[employer] Supplies. Dx: G47.33. Fax 30 day compliance report to [phone]. CPAP Please provide mask fitting. Pt with subjective and some degree objective leaks. Prefers nasal type mask. Thank you. DME = [facility] acetaminophen 650 mg CR tablet Take 650 mg by mouth as needed. aspirin, enteric coated (ASPIRIN, ENTERIC COATED) 81 mg EC tablet Take 81 mg by mouth once daily. MULTIVITAMIN,TX-MINERALS ORAL TAB Take one(1) tablet daily. Current Facility-Administered Medications Medication Dose Route Frequency perflutren lipid microspheres 1.3 mL in NaCl (PF) 0.9% 10 mL injection (DEFINITY) INTRAVENOUS DIRECTED PRN sodium chloride 0.9 % (flush) 10 mL (BD POSIFLUSH) 10 mL INTRAVENOUS DIRECTED PRN Medications and allergies reviewed by this provider. SOCIAL HISTORY Social History Tobacco Use Smoking status: Never Smokeless tobacco: Never Vaping Use Vaping Use: Never used Substance Use Topics Alcohol use: No Drug use: No REVIEW OF SYSTEMS All other reviewed and negative other than HPI. OBJECTIVE: BP 156/87 Pulse 65 Resp 16 Wt 132.6 kg (292 lb 6.4 oz) SpO2 96% BMI 41.96 kg/m? . Vital signs reviewed by this provider. APPEARANCE Well appearing, alert, in no acute distress, well-hydrated, well nourished. EYES conjunctiva and sclera normal. HEART RRR with normal S1 and S2, no murmurs, no gallops, no JVD appreciated Lungs: Lungs clear to auscultation, No wheezing, rales or rhonchi EXTREMITIES No skin discoloration and race 1+ non-pitting edema Component Latest Ref Rng AND Units 11/02/2022 Protein, Total 6.3 - 8.0 g/dL 6.4 Albumin 3.9 - 4.9 g/dL 3.7 (L) Calcium 8.5 - 10.2 mg/dL 9.1 Bilirubin, Total 0.2 - 1.3 mg/dL 0.5 Alkaline Phosphatase 38 - 113 U/L 83 AST 14 - 40 U/L 26 ALT 10 - 54 U/L 27 Glucose 74 - 99 mg/dL 116 (H) BUN 9 - 24 mg/dL 20 Creatinine 0.73 - 1.22 mg/dL 1.36 (H) Sodium 136 - 144 mmol/L 139 Potassium 3.7 - 5.1 mmol/L 4.5 Chloride 97 - 105 mmol/L 104 CO2 22 - 30 mmol/L 24 Anion G (more content not included)... [facility] 03-20-2023 Miscellaneous Notes Patient last visit 11/02/22 Follow up appointment scheduled 05/15/23 Danica Mayen Ma documented in this encounter [facility] 03-13-2023 Note Patient Outreach (NE TNAV) FRAN LOPEZ ([id number]) 1945 M Date Time Provider Department 03/13/23 ANUSHA TREVINO During your visit today, we recorded the following information about you: Anusha Trevino MA 03/13/2023 3:47 PM Signed POPULATION HEALTH NAVIGATION OUTREACH Action/ Schedule appointment ANNUAL MEDICARE WELLNESS BP Controlled (<130/80) due on 07/30/2021 Advance Directive Discussion Never done Influenza Vaccine(1) due on 12/30/2022 Patient Identified by Name and : YES, via phone Outreach Outcome/Action Spoke to patient / parent / legal guardian: Patient scheduled Did you use a PCP flex slot to schedule this appointment? N/A Reason for Outreach Care Gap or Scheduling/Wellness visits Payer: Payor: MEDICARE / Plan: MEDICARE A AND B / Product Type: Medicare / Care Gap Reviewed:: Annual Wellness visit Controlling Blood Pressure Flu Vaccine Reminder: Reminder note to check Health Maintenance for items below Health Maintenance items due: RSV Vaccine(1 - 1-dose 60+ series) Never done BP Controlled (<130/80) due on 07/30/2021 Advance Directive Discussion Never done Depression Assessment due on 05/01/2022 Influenza Vaccine(1) due on 12/30/2022 Covid-19 Vaccine(2022-24 season) due on 12/30/2022 Navigation Signature: Anusha Trevino MA March 13, 2023 9:53 AM Allergies As of Date: 03/13/2023 Noted Allergy Reaction NORVASC (AMLODIPINE BESYLATE) 09/14/2016 7 - Swelling Comments: pedal edema VENOM-WASP 01/14/2005 7 - Swelling ZITHROMAX (AZITHROMYCIN) 01/14/2005 9 - Itching Date Reviewed: 11/02/2022 Reviewed by: Eunice Bruce LPN - Fully Assessed Reason for Visit: Population Health Navigation Outreach [3910] Cmt: ACO CARE GAPS Prescriptions as of 03/13/2023 - atorvastatin (LIPITOR) 40 mg tablet Take 1 tablet by mouth once daily. - lisinopril (ZESTRIL) 40 mg tablet Take 1 tablet by mouth once daily. - metoprolol succinate ER (TOPROL XL) 25 mg 24 hr tablet Take 1 tablet by mouth once daily. - hydroCHLOROthiazide 25 mg tablet Take 1 tablet by mouth once daily. - naproxen sodium (ALEVE) 220 mg tablet Take 220 mg by mouth twice daily with meals. - amoxicillin (POLYMOX, AMOXIL) 500 mg capsule Take four capsules one hour before dental procedure. - levothyroxine (SYNTHROID) 125 mcg tablet Take 1 tablet by mouth once daily. TAKE 1 TABLET BY MOUTH ONCE DAILY. TAKE ON EMPTY STOMACH. FOR THYROID - CPAP AutoPAP [id number]. Mask per preference, tubing, filters, humidity. [employer]. Dx: G47.33. Fax 30 day compliance report to [phone]. - CPAP Please provide mask fitting. Pt with subjective and some degree objective leaks. Prefers nasal type mask. Thank you. DME = [facility] - acetaminophen 650 mg CR tablet Take 650 mg by mouth as needed. - aspirin, enteric coated (ASPIRIN, ENTERIC COATED) 81 mg EC tablet Take 81 mg by mouth once daily. - MULTIVITAMIN,TX-MINERALS ORAL TAB Take one(1) tablet daily. Facility-Administered Medications as of 03/13/2023 - perflutren lipid microspheres 1.3 mL in NaCl (PF) 0.9% 10 mL injection (DEFINITY) - sodium chloride 0.9 % (flush) 10 mL (BD POSIFLUSH) Problem List As Of Date 03/13/2023 Noted Resolved BENIGN HYPERTENSION [I10] 03/11/2005 Hypertrophy of prostate with urinary obstructio*06/01/2006 BLADDER NECK OBSTRUCTION [N32.0] 06/01/2006 Plantar fascial fibromatosis [M72.2] 11/02/2006 05/09/2014 Ingrowing nail [L60.0] 11/26/2007 05/09/2014 Hypothyroidism [E03.9] 03/25/2009 Open fracture of distal phalangeal tuft [JUU098*08/31/2011 05/09/2014 Internal derangement of right knee [M23.91] 05/07/2012 Intention tremor [G25.2] 05/07/2012 Benign prostatic hyperplasia with lower urinary*01/15/2013 Nocturia [R35.1] 01/15/2013 Right flank pain [R10.9] 02/04/2013 05/09/2014 Right kidney stone [N20.0] 02/04/2013 05/09/2014 Right renal mass [N28.89] 02/04/2013 Right lower lobe lung mass [R91.8] 02/04/2013 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] 02/14/2013 Diastasis recti [M62.08] 10/09/2013 Mass of pancreas (HCC) [K86.89] 05/12/2014 MARTIN (obstructive sleep apnea) [G47.33] 08/02/2016 ASHD (arteriosclerotic heart disease) [I25.10] 09/14/2016 Hyperlipidemia LDL goal <100 [E78.5] 09/14/2016 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] 06/08/2018 Right buttock pain [M79.18] 02/04/2019 Ankle edema, bilateral [M25.471, M25.472] 02/04/2019 Class 2 obesity due to excess calories with bod*05/13/2019 Pre-operative examination [Z01.818] 05/13/2019 Primary osteoarthritis of right hip [M16.11] 05/13/2019 Osteoarthritis of right hip [M16.11] 06/03/2019 06/06/2019 Carpal tunnel syndrome, bilateral [G56.03] 11/20/2019 Stage 3a chronic kidney disease [N18.31] 04/29/2020 Obesity, Class II, BMI 35-39.9 [E66.9] 04/29/2020 Bilateral leg edema [R60.0] 04/29/2020 Venous insufficiency (chronic) (peripheral) [I8* (more content not included)... [facility] 03-13-2023 Note HNO ID: [id number] Author: Anusha Trevino MA Service: ? 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 N/A Reason for Outreach Care Gap or Scheduling/Wellness visits Payer: Payor: MEDICARE / Plan: MEDICARE A AND B / Product Type: Medicare / Care Gap Reviewed:: Annual Wellness visit Controlling Blood Pressure Flu Vaccine Reminder: Reminder note to check Health Maintenance for items below Health Maintenance items due: RSV Vaccine(1 - 1-dose 60+ series) Never done BP Controlled (<130/80) due on 07/30/2021 Advance Directive Discussion Never done Depression Assessment due on 05/01/2022 Influenza Vaccine(1) due on 12/30/2022 Covid-19 Vaccine( season) due on 12/30/2022 Navigation Signature: Anusha Trevino MA March 13, 2023 9:53 AM [facility] 03-13-2023 History of Present illness Narrative POPULATION HEALTH NAVIGATION OUTREACH Action/FYI Schedule appointment ANNUAL MEDICARE WELLNESS BP Controlled (<130/80) due on 07/30/2021 Advance Directive Discussion Never done Influenza Vaccine(1) due on 12/30/2022 Patient Identified by Name and : YES, via phone Outreach Outcome/Action Spoke to patient / parent / legal guardian: Patient scheduled Did you use a PCP flex slot to schedule this appointment? N/A Reason for Outreach Care Gap or Scheduling/Wellness visits Payer: Payor: MEDICARE / Plan: MEDICARE A AND B / Product Type: Medicare / Care Gap Reviewed:: Annual Wellness visit Controlling Blood Pressure Flu Vaccine Reminder: Reminder note to check Health Maintenance for items below Health Maintenance items due: RSV Vaccine(1 - 1-dose 60+ series) Never done BP Controlled (<130/80) due on 07/30/2021 Advance Directive Discussion Never done Depression Assessment due on 05/01/2022 Influenza Vaccine(1) due on 12/30/2022 Covid-19 Vaccine(2022- season) due on 12/30/2022 Navigation Signature: Anusha Trevino MA March 13, 2023 9:53 AM documented in this encounter [facility] 03-07-2023 Miscellaneous Notes Last OV 11/02/2022 Next appointment scheduled 05/05/2023 Patient has been identified by name and date of : Yes Requested Prescriptions Pending Prescriptions Disp Refills atorvastatin (LIPITOR) 40 mg tablet 90 tablet 0 Sig: Take 1 tablet by mouth once daily. RX INSTRUCTIONS: Patient aware RX will be sent to [facility] pharmacy. No need to notify patient. Marilia Brush documented in this encounter [facility] 02-07-2023 Miscellaneous Notes Spoke with pt and information listed below given. Pt verbalizes understanding. Leonila Winslow LPN 6 month rx sent. Patient has been identified by name and date of : Yes Last office visit in this department: Visit date not found RX INSTRUCTIONS: Patient aware RX will be sent to pharmacy. No need to notify patient. Patient phones requesting refills as follows: Requested Prescriptions Pending Prescriptions Disp Refills lisinopril (ZESTRIL) 40 mg tablet 90 tablet 3 Sig: Take 1 tablet by mouth once daily. Patient requested more than one refill if possible. Please review and advise. Sherrell Pardo documented in this encounter [facility] 01-23-2023 Miscellaneous Notes Faxed Rx medical necessity for durable medical equipment to [facility] [phone]. Document scanned into chart. Alexandrea Winslow LPN documented in this encounter [facility] 12-29-2022 Note HNO ID: [id number] Author: Kvng Forman PT Service: ? Author Type: Physical Therapist Type: Progress Notes Filed: 12/29/2022 2:29 PM Note Text: Episode Visit Count: 10 Therapist That Will Accept/Oversee The Plan Of Care: Kvng Forman PT Start of Care Date: 11/29/22 Onset Date: 11/29/20 Plan of Care Certification Date: 11/29/22 Next Certification Due Date: 01/03/23 Patient Identified by Name and Date of : Yes REHABILITATION AND SPORTS THERAPY PHYSICAL THERAPY DISCONTINUANCE OF CARE PLAN OF CARE UPDATE: Assessment: Fran Lopez is discontinued from Physical Therapy services due to goal achievement and maximal benefit. and Patient/Clinician mutual decision to discontinue current plan of care.. Patient was seen for 10 visits from Start of Care Date: 11/29/22 to 12/29/2022 and treatment included: Therapeutic exercise, Manual therapy, Self-skilled nursing management, Patient/Family/Caregiver Education, and Body mechanics training. Updated: 12/29/22 Goals for Episode of Care: created on 11/29/22 through 01/24/23 Independent in home exercises. - MET Patient will decrease pain rating by 2 points to meet minimal clinical important difference for numeric pain rating scale. - MET Restore pain-free lumbar ROM to moderate to minimal limitation extension to allow for improved posture and transitional movements without increased symptoms. - MET Stand / Walk 20-30 minutes without limitation due to pain/symptoms. - Partially MET Sleep through night without pain/symptoms. - MET Patient will be able to correct postural deviations independently in order to improve postural alignment of trunk during transfers, ambulation, sitting, standing, and functional activities. - MET Patient Goals: reduce low back pain - MET and pt is independent with HEP that will allow him to self-manage. SUBJECTIVE: Pt reports that overall he is much better since starting PT and he feels confident in his ability to self manage his symptoms with HEP only. He reports that his pain is not fully abolished but is less overall. He reports compliance with HEP 2x day with good results. He denies any pain currently. He reports that his standing and walking tolerance has increased to 10 minutes but is still limited and did not reach the goal of 20-30 minutes. He reports that his back symptoms do not interfere with his sleep and that his sitting tolerance is unlimited. Pain: Pain Pain Level: 0 Pain Location: Leg - Right, Leg - Left, Buttocks - Right, Buttocks - Left, Low Back/Lumbar Spine - Right, Low Back/Lumbar Spine - Left Description: (no pain to start today) Frequency: Intermittent Post Treatment Pain Post Treatment Pain Level: Better Post Treatment Symptoms: He reported feeling better after session today and continued to deny any pain. PROMIS Scales Higher is Better 12/27/2022 11/29/2022 Phys Func - Score 38 (moderate dysfunction) 35 (moderate dysfunction) Phys Func - Percentile 12 % 7 % Self-Eff Symptom - Score 42 (Average) 44 (Average) Self-Eff Symptom - Percentile 21 % 27 % T-scores: mean of general population = 50. 5 points is clinically meaningfully difference Percentiles provide an indication of how the patient's score ranks in relation to the general population. Higher percentile rankings indicate better function/quality of life. 50th percentile is the average of the general population and indicates half of respondents had a worse score. OBJECTIVE MEASURES WITH LEVEL OF FUNCTION: Lumbar Spine AROM Lumbar Flexion: Moderate limitation, Increased pain Lumbar Extension: Moderate limitation Lumbar R Side-Bend: Normal Lumbar L Side-Bend: Normal Lumbar R Rotation: Normal Lumbar L Rotation: Normal LE Strength Trunk Strength: improving TREATMENT: Therapeutic Exercise: 1: Sci[employer] StepOne seat #15 x5 minutes resistance level 1 (pt provided an update on his condition and subjective portion of goals assessed.) 2: supine B SKTC 3x30 seconds 3: supine DKTC 3x30 seconds 4: supine LTR 2x10 5: supine posterior pelvic tilts held with B alt marching reviewed for HEP and continuation encouraged. 6: crunches in small range reviewed for HEP and continuation encouraged 7: standing at Hoist stirring the pot 1 plate plus 3 round x10 CW and x10 CCW facing both lateral directions. 8: seated at Hoist, 2 plates plus 3 round pull downs with maria del rosario overhead elbows extended 3x12 9: Re-assessment results reviewed with patient and used as rationale for d/c recommendations. He verbalized understanding of all instructions and agreed with plan. Skilled Intervention: Patient was educated in proper exercise technique and purpose for exercises. Skilled judgment was provided in selection of appropriate interventions. Correct performance of therapeutic exercises was facilitated with verbal and visual cuing. Patient education as noted. Manual Therapy: Manual Traction: After therex, static m (more content not included)... [facility] 12-29-2022 History of Present illness Narrative Episode Visit Count: 10 Therapist That Will Accept/Oversee The Plan Of Care: Kvng Forman PT Start of Care Date: 11/29/22 Onset Date: 11/29/20 Plan of Care Certification Date: 11/29/22 Next Certification Due Date: 01/03/23 Patient Identified by Name and Date of : Yes REHABILITATION AND SPORTS THERAPY PHYSICAL THERAPY DISCONTINUANCE OF CARE PLAN OF CARE UPDATE: Assessment: Fran Lopez is discontinued from Physical Therapy services due to goal achievement and maximal benefit. and Patient/Clinician mutual decision to discontinue current plan of care.. Patient was seen for 10 visits from Start of Care Date: 11/29/22 to 12/29/2022 and treatment included: Therapeutic exercise, Manual therapy, Self-skilled nursing management, Patient/Family/Caregiver Education, and Body mechanics training. Updated: 12/29/22 Goals for Episode of Care: created on 11/29/22 through 01/24/23 Independent in home exercises. - MET Patient will decrease pain rating by 2 points to meet minimal clinical important difference for numeric pain rating scale. - MET Restore pain-free lumbar ROM to moderate to minimal limitation extension to allow for improved posture and transitional movements without increased symptoms. - MET Stand / Walk 20-30 minutes without limitation due to pain/symptoms. - Partially MET Sleep through night without pain/symptoms. - MET Patient will be able to correct postural deviations independently in order to improve postural alignment of trunk during transfers, ambulation, sitting, standing, and functional activities. - MET Patient Goals: reduce low back pain - MET and pt is independent with HEP that will allow him to self-manage. SUBJECTIVE: Pt reports that overall he is much better since starting PT and he feels confident in his ability to self manage his symptoms with HEP only. He reports that his pain is not fully abolished but is less overall. He reports compliance with HEP 2x day with good results. He denies any pain currently. He reports that his standing and walking tolerance has increased to 10 minutes but is still limited and did not reach the goal of 20-30 minutes. He reports that his back symptoms do not interfere with his sleep and that his sitting tolerance is unlimited. Pain: Pain Pain Level: 0 Pain Location: Leg - Right, Leg - Left, Buttocks - Right, Buttocks - Left, Low Back/Lumbar Spine - Right, Low Back/Lumbar Spine - Left Description: (no pain to start today) Frequency: Intermittent Post Treatment Pain Post Treatment Pain Level: Better Post Treatment Symptoms: He reported feeling better after session today and continued to deny any pain. PROMIS Scales Higher is Better 12/27/2022 11/29/2022 Phys Func - Score 38 (moderate dysfunction) 35 (moderate dysfunction) Phys Func - Percentile 12 % 7 % Self-Eff Symptom - Score 42 (Average) 44 (Average) Self-Eff Symptom - Percentile 21 % 27 % T-scores: mean of general population = 50. 5 points is clinically meaningfully difference Percentiles provide an indication of how the patient's score ranks in relation to the general population. Higher percentile rankings indicate better function/quality of life. 50th percentile is the average of the general population and indicates half of respondents had a worse score. OBJECTIVE MEASURES WITH LEVEL OF FUNCTION: Lumbar Spine AROM Lumbar Flexion: Moderate limitation, Increased pain Lumbar Extension: Moderate limitation Lumbar R Side-Bend: Normal Lumbar L Side-Bend: Normal Lumbar R Rotation: Normal Lumbar L Rotation: Normal LE Strength Trunk Strength: improving TREATMENT: Therapeutic Exercise: 1: SciFit StepOne seat #15 x5 minutes resistance level 1 (pt provided an update on his condition and subjective portion of goals assessed.) 2: supine B SKTC 3x30 seconds 3: supine DKTC 3x30 seconds 4: supine LTR 2x10 5: supine posterior pelvic tilts held with B alt marching reviewed for HEP and continuation encouraged. 6: crunches in small range reviewed for HEP and continuation encouraged 7: standing at Hoist stirring the pot 1 plate plus 3 round x10 CW and x10 CCW facing both lateral directions. 8: seated at Hoist, 2 plates plus 3 round pull downs with maria del rosario overhead elbows extended 3x12 9: Re-assessment results reviewed with patient and used as rationale for d/c recommendations. He verbalized understanding of all instructions and agreed with plan. Skilled Intervention: Patient was educated in proper exercise technique and purpose for exercises. Skilled judgment was provided in selection of appropriate interventions. Correct performance of therapeutic exercises was facilitated with verbal and visual cuing. Patient education as noted. Manual Therapy: Manual Traction: After therex, static manual lumbar belt traction x10 minutes with LEs on stool and force to pt tolerance. Skilled Intervention: Manual skills to improve joint mobility, ROM, and decrease pain. Utilized anatomy knowledge of the therapist, and assessment of patient's response to intervention. Billing Therapeutic Exercise Treatment Minutes: 39 Manual TherapyTreatment Minutes: 10 Total Treatment Time Minutes (timed/untimed): 49 Session Start Time : 1046 Session Stop Time : 1135 Kvng Forman PT documented in this encounter [facility] 12-27-2022 Note HNO ID: [id number] Author: Kvng Forman PT Service: ? Author Type: Physical Therapist Type: Progress Notes Filed: 12/27/2022 5:05 PM Note Text: Episode Visit Count: 9 Therapist That Will Accept/Oversee The Plan Of Care: Kvng Forman PT Start of Care Date: 11/29/22 Onset Date: 11/29/20 Plan of Care Certification Date: 11/29/22 Next Certification Due Date: 01/03/23 Patient Identified by Name and Date of : Yes REHABILITATION AND SPORTS THERAPY PHYSICAL THERAPY TREATMENT NOTE ASSESSMENT: Fran Lopez tolerated the session with decreased symptoms. He demonstrated improvements in pain in the short term. The patient will continue to benefit from ongoing skilled physical therapy to progress toward set goals and for reassessment by supervising therapist. PLAN FOR NEXT VISIT: Re-assess for plan of care update. Continue with flexion based postural stretching and strengthening. Continue manual lumbar belt traction. SUBJECTIVE: Pt reports that overall his symptoms are unchanged. He reports that he still has good days and bad days without a consistent explanation. He reports compliance with HEP 2x day. He continues to report relief from manual lumbar belt traction done in PT but that this relief only lasts into the same evening. Pain: Pain Pain Level: 6 Pain Location: Leg - Right, Leg - Left, Buttocks - Right, Buttocks - Left, Low Back/Lumbar Spine - Right, Low Back/Lumbar Spine - Left Description: Sharp Frequency: Intermittent Post Treatment Pain Post Treatment Pain Level: 0 Post Treatment Pain Location: Leg - Right, Leg - Left, Buttocks - Right, Buttocks - Left Post Treatment Symptoms: After session, pt reported that all pain was abolished. OBJECTIVE MEASURES WITH LEVEL OF FUNCTION: TREATMENT: Therapeutic Exercise: 1: [employer] StepOne seat #15 x5 minutes resistance level 1 (pt provided an update on his condition and therapist reviewed plan of care with patient.) 2: supine B SKTC 3x30 seconds 3: supine DKTC 3x30 seconds 4: supine LTR 2x10 5: supine posterior pelvic tilts held with B alt marching raises 2x10 6: crunches in small range 2x10 7: standing at Hoist stirring the pot 1 plate plus 3 round x10 CW and x10 CCW facing both lateral directions. 8: seated at Hoist, 2 plates plus 3 round pull downs with maria del rosario overhead elbows extended 3x10 Skilled Intervention: Patient was educated in proper exercise technique and purpose for exercises. Skilled judgment was provided in selection of appropriate interventions. Correct performance of therapeutic exercises was facilitated with verbal and visual cuing. Manual Therapy: Manual Traction: After therex, static manual lumbar belt traction x10 minutes with LEs on stool and force to pt tolerance. Skilled Intervention: Manual skills to improve joint mobility, ROM, and decrease pain. Utilized anatomy knowledge of the therapist, and assessment of patient's response to intervention. Self-Mcc Management: 1: Pt was educated on PNE and the resources available. He was provided with title and author information for Why do I Hurt. Skilled Intervention: Skilled judgment in the selection of proper modification for activity of daily living/home management based on clinical presentation, deficits, and needs. Reviewed patient specific diagnosis in relation to activities of daily living/home management. Billing Therapeutic Exercise Treatment Minutes: 39 Manual TherapyTreatment Minutes: 10 Self-Care/Home Management Treatment Minutes: 5 Total Treatment Time Minutes (timed/untimed): 54 Session Start Time : 1445 Session Stop Time : 1539 Kvng Forman PT [facility] 12-27-2022 History of Present illness Narrative Episode Visit Count: 9 Therapist That Will Accept/Oversee The Plan Of Care: Kvng Forman PT Start of Care Date: 11/29/22 Onset Date: 11/29/20 Plan of Care Certification Date: 11/29/22 Next Certification Due Date: 01/03/23 Patient Identified by Name and Date of : Yes REHABILITATION AND SPORTS THERAPY PHYSICAL THERAPY TREATMENT NOTE ASSESSMENT: Fran Lopez tolerated the session with decreased symptoms. He demonstrated improvements in pain in the short term. The patient will continue to benefit from ongoing skilled physical therapy to progress toward set goals and for reassessment by supervising therapist. PLAN FOR NEXT VISIT: Re-assess for plan of care update. Continue with flexion based postural stretching and strengthening. Continue manual lumbar belt traction. SUBJECTIVE: Pt reports that overall his symptoms are unchanged. He reports that he still has good days and bad days without a consistent explanation. He reports compliance with HEP 2x day. He continues to report relief from manual lumbar belt traction done in PT but that this relief only lasts into the same evening. Pain: Pain Pain Level: 6 Pain Location: Leg - Right, Leg - Left, Buttocks - Right, Buttocks - Left, Low Back/Lumbar Spine - Right, Low Back/Lumbar Spine - Left Description: Sharp Frequency: Intermittent Post Treatment Pain Post Treatment Pain Level: 0 Post Treatment Pain Location: Leg - Right, Leg - Left, Buttocks - Right, Buttocks - Left Post Treatment Symptoms: After session, pt reported that all pain was abolished. OBJECTIVE MEASURES WITH LEVEL OF FUNCTION: TREATMENT: Therapeutic Exercise: 1: SciFit StepOne seat #15 x5 minutes resistance level 1 (pt provided an update on his condition and therapist reviewed plan of care with patient.) 2: supine B SKTC 3x30 seconds 3: supine DKTC 3x30 seconds 4: supine LTR 2x10 5: supine posterior pelvic tilts held with B alt marching raises 2x10 6: crunches in small range 2x10 7: standing at [facility] stirring the pot 1 plate plus 3 round x10 CW and x10 CCW facing both lateral directions. 8: seated at [facility], 2 plates plus 3 round pull downs with maria del rosario overhead elbows extended 3x10 Skilled Intervention: Patient was educated in proper exercise technique and purpose for exercises. Skilled judgment was provided in selection of appropriate interventions. Correct performance of therapeutic exercises was facilitated with verbal and visual cuing. Manual Therapy: Manual Traction: After therex, static manual lumbar belt traction x10 minutes with LEs on stool and force to pt tolerance. Skilled Intervention: Manual skills to improve joint mobility, ROM, and decrease pain. Utilized anatomy knowledge of the therapist, and assessment of patient's response to intervention. Self-Mcc Management: 1: Pt was educated on PNE and the resources available. He was provided with title and author information for Why do I Hurt. Skilled Intervention: Skilled judgment in the selection of proper modification for activity of daily living/home management based on clinical presentation, deficits, and needs. Reviewed patient specific diagnosis in relation to activities of daily living/home management. Billing Therapeutic Exercise Treatment Minutes: 39 Manual TherapyTreatment Minutes: 10 Self-Care/Home Management Treatment Minutes: 5 Total Treatment Time Minutes (timed/untimed): 54 Session Start Time : 1445 Session Stop Time : 1539 Kvng Forman PT documented in this encounter [facility] 12-22-2022 Note HNO ID: [id number] Author: Kvng Forman PT Service: ? Author Type: Physical Therapist Type: Progress Notes Filed: 12/22/2022 2:45 PM Note Text: Episode Visit Count: 8 Therapist That Will Accept/Oversee The Plan Of Care: Kvng Forman PT Start of Care Date: 11/29/22 Onset Date: 11/29/20 Plan of Care Certification Date: 11/29/22 Next Certification Due Date: 01/03/23 Patient Identified by Name and Date of : Yes REHABILITATION AND SPORTS THERAPY PHYSICAL THERAPY TREATMENT NOTE ASSESSMENT: Fran Lopez tolerated the session with decreased symptoms. He demonstrated improvements in pain and exercise tolerance. The patient will continue to benefit from ongoing skilled physical therapy to progress toward set goals. PLAN FOR NEXT VISIT: Continue with therex for postural stretching and strengthening with flexion directional preference. Continue with manual lumbar belt traction. SUBJECTIVE: Pt reports that overall he is feeling approximately the same as last session. He reports compliance with HEP 2x day. He reports that bending and lifting and using the vacuum cause increased low back pain. He feels that traction is still helping in PT sessions. Pain: Pain Pain Level: 4 Pain Location: Leg - Right, Leg - Left, Buttocks - Right, Buttocks - Left, Low Back/Lumbar Spine - Right, Low Back/Lumbar Spine - Left Description: Sharp Frequency: Intermittent Post Treatment Pain Post Treatment Pain Level: 0 Post Treatment Pain Location: Leg - Right, Leg - Left, Buttocks - Right, Buttocks - Left Post Treatment Pain Description: (no pain after) Post Treatment Symptoms: After session pt reported that his pain was abolished and that it is good. OBJECTIVE MEASURES WITH LEVEL OF FUNCTION: TREATMENT: Therapeutic Exercise: 1: LánzanosFit StepOne seat #15 x6 minutes resistance level 1 (pt provided an update on his condition and therapist reviewed plan of care with patient.) 2: supine B SKTC 3x30 seconds 3: supine DKTC 3x30 seconds 4: supine LTR 2x10 5: supine posterior pelvic tilts held with B alt marching raises 2x10 6: crunches in small range 2x10 7: standing at [facility] stirring the pot 1 plate plus 3 round x10 CW and x10 CCW facing both lateral directions. 8: seated at [facility], 2 plates plus 3 round pull downs with maria del rosario overhead elbows extended 3x10 Skilled Intervention: Patient was educated in proper exercise technique and purpose for exercises. Skilled judgment was provided in selection of appropriate interventions. Correct performance of therapeutic exercises was facilitated with verbal, visual, and tactile cuing. Patient education as noted. Manual Therapy: Manual Traction: After therex, static manual lumbar belt traction x10 minutes with LEs on stool and force to pt tolerance. Skilled Intervention: Manual skills to improve joint mobility, ROM, and decrease pain. Utilized anatomy knowledge of the therapist, and assessment of patient's response to intervention. Billing Therapeutic Exercise Treatment Minutes: 39 Manual TherapyTreatment Minutes: 10 Total Treatment Time Minutes (timed/untimed): 49 Session Start Time : 1050 Session Stop Time : 1139 Kvng Forman PT [facility] 12-22-2022 History of Present illness Narrative Episode Visit Count: 8 Therapist That Will Accept/Oversee The Plan Of Care: Kvng Forman PT Start of Care Date: 11/29/22 Onset Date: 11/29/20 Plan of Care Certification Date: 11/29/22 Next Certification Due Date: 01/03/23 Patient Identified by Name and Date of : Yes REHABILITATION AND SPORTS THERAPY PHYSICAL THERAPY TREATMENT NOTE ASSESSMENT: Fran Lopez tolerated the session with decreased symptoms. He demonstrated improvements in pain and exercise tolerance. The patient will continue to benefit from ongoing skilled physical therapy to progress toward set goals. PLAN FOR NEXT VISIT: Continue with therex for postural stretching and strengthening with flexion directional preference. Continue with manual lumbar belt traction. SUBJECTIVE: Pt reports that overall he is feeling approximately the same as last session. He reports compliance with HEP 2x day. He reports that bending and lifting and using the vacuum cause increased low back pain. He feels that traction is still helping in PT sessions. Pain: Pain Pain Level: 4 Pain Location: Leg - Right, Leg - Left, Buttocks - Right, Buttocks - Left, Low Back/Lumbar Spine - Right, Low Back/Lumbar Spine - Left Description: Sharp Frequency: Intermittent Post Treatment Pain Post Treatment Pain Level: 0 Post Treatment Pain Location: Leg - Right, Leg - Left, Buttocks - Right, Buttocks - Left Post Treatment Pain Description: (no pain after) Post Treatment Symptoms: After session pt reported that his pain was abolished and that it is good. OBJECTIVE MEASURES WITH LEVEL OF FUNCTION: TREATMENT: Therapeutic Exercise: 1: SciFit StepOne seat #15 x6 minutes resistance level 1 (pt provided an update on his condition and therapist reviewed plan of care with patient.) 2: supine B SKTC 3x30 seconds 3: supine DKTC 3x30 seconds 4: supine LTR 2x10 5: supine posterior pelvic tilts held with B alt marching raises 2x10 6: crunches in small range 2x10 7: standing at [facility] stirring the pot 1 plate plus 3 round x10 CW and x10 CCW facing both lateral directions. 8: seated at [facility], 2 plates plus 3 round pull downs with maria del rosario overhead elbows extended 3x10 Skilled Intervention: Patient was educated in proper exercise technique and purpose for exercises. Skilled judgment was provided in selection of appropriate interventions. Correct performance of therapeutic exercises was facilitated with verbal, visual, and tactile cuing. Patient education as noted. Manual Therapy: Manual Traction: After therex, static manual lumbar belt traction x10 minutes with LEs on stool and force to pt tolerance. Skilled Intervention: Manual skills to improve joint mobility, ROM, and decrease pain. Utilized anatomy knowledge of the therapist, and assessment of patient's response to intervention. Billing Therapeutic Exercise Treatment Minutes: 39 Manual TherapyTreatment Minutes: 10 Total Treatment Time Minutes (timed/untimed): 49 Session Start Time : 1050 Session Stop Time : 1139 Kvng Forman PT documented in this encounter [facility] 12-20-2022 Note HNO ID: [id number] Author: Kvng Forman PT Service: ? Author Type: Physical Therapist Type: Progress Notes Filed: 12/20/2022 4:42 PM Note Text: Episode Visit Count: 7 Therapist That Will Accept/Oversee The Plan Of Care: Kvng Forman PT Start of Care Date: 11/29/22 Onset Date: 11/29/20 Plan of Care Certification Date: 11/29/22 Next Certification Due Date: 01/03/23 Patient Identified by Name and Date of : Yes REHABILITATION AND SPORTS THERAPY PHYSICAL THERAPY TREATMENT NOTE ASSESSMENT: Fran Lopez tolerated the session with fatigue, decreased symptoms, expected muscle soreness, and no issues. He demonstrated improvements in pain and exercise tolerance. The patient will continue to benefit from ongoing skilled physical therapy to progress toward set goals. PLAN FOR NEXT VISIT: Continue with therex for postural stretching and strengthening with flexion directional preference. Continue with manual lumbar belt traction. SUBJECTIVE: Pt reports that overall he is doing better but not significantly different from last session. He reports compliance with HEP 2x day and HEP continue to provide relief. He reports that radicular symptoms into hips and LEs is intermittent and not currently present. Pain: Pain Pain Level: 0 Description: (no pain to start today) Frequency: Intermittent Post Treatment Pain Post Treatment Pain Level: No Change Post Treatment Symptoms: Pt denied any pain to start and also denied any pain as he was leaving. OBJECTIVE MEASURES WITH LEVEL OF FUNCTION: TREATMENT: Therapeutic Exercise: 1: SciFit StepOne seat #15 x6 minutes resistance level 1 (pt provided an update on his condition and therapist reviewed plan of care with patient.) 2: supine B SKTC 3x30 seconds 3: supine DKTC 3x30 seconds 4: supine LTR 2x10 5: supine posterior pelvic tilts held with B alt marching raises 3x5 6: crunches in small range 2x10 7: standing at [facility] stirring the pot 1 plate plus 3 round x10 CW and x10 CCW facing both lateral directions. 8: seated at [facility], 2 plates plus 1 round pull downs with maria del rosario overhead elbows extended 3x10 Skilled Intervention: Patient was educated in proper exercise technique and purpose for exercises. Skilled judgment was provided in selection of appropriate interventions. Correct performance of therapeutic exercises was facilitated with verbal, visual, and tactile cuing. Patient education as noted. Manual Therapy: Manual Traction: After therex, static manual lumbar belt traction x10 minutes with LEs on stool and force to pt tolerance. Skilled Intervention: Manual skills to improve joint mobility, ROM, and decrease pain. Utilized anatomy knowledge of the therapist, and assessment of patient's response to intervention. Billing Therapeutic Exercise Treatment Minutes: 39 Manual TherapyTreatment Minutes: 10 Total Treatment Time Minutes (timed/untimed): 49 Session Start Time : 1135 Session Stop Time : 1224 Kvng Forman PT [facility] 12-16-2022 Note HNO ID: [id number] Author: Kvng Forman PT Service: ? Author Type: Physical Therapist Type: Progress Notes Filed: 12/16/2022 1:56 PM Note Text: Episode Visit Count: 6 Therapist That Will Accept/Oversee The Plan Of Care: Kvng Forman PT Start of Care Date: 11/29/22 Onset Date: 11/29/20 Plan of Care Certification Date: 11/29/22 Next Certification Due Date: 01/03/23 Patient Identified by Name and Date of : Yes REHABILITATION AND SPORTS THERAPY PHYSICAL THERAPY TREATMENT NOTE ASSESSMENT: Fran Lopez tolerated the session with decreased symptoms. He demonstrated improvements in pain. The patient will continue to benefit from ongoing skilled physical therapy to progress toward set goals. PLAN FOR NEXT VISIT: Continue with active therex for postural stretching and strengthening with flexion directional preference and continue manual lumbar belt traction. Progress strengthening to tolerance. Consider additional upright strengthening for functional purposes. SUBJECTIVE: Pt reports that yesterday was a bad day but today is a good day without explanation. He feels that PT session treatments are helping. He reports compliance with HEP 2x day. He denies any pain to start today, not even driving here today. Pain: Pain Pain Level: 0 Pain Location: Leg - Right, Leg - Left, Buttocks - Right, Buttocks - Left, Low Back/Lumbar Spine - Right, Low Back/Lumbar Spine - Left Description: (no pain to start today) Frequency: Intermittent Post Treatment Pain Post Treatment Pain Level: 0 Post Treatment Pain Location: Leg - Right, Leg - Left, Buttocks - Right, Buttocks - Left Post Treatment Symptoms: No pain before, during or after session. OBJECTIVE MEASURES WITH LEVEL OF FUNCTION: TREATMENT: Therapeutic Exercise: 1: LánzanosFit StepOne seat #15 x6 minutes resistance level 1 (pt provided an update on his condition and therapist reviewed plan of care with patient. Recommendations made to use HEP for symptom management.) 2: supine B SKTC 3x30 seconds 3: supine DKTC 3x30 seconds 4: supine LTR 2x10 5: supine posterior pelvic tilts held with B alt marching raises 3x5 6: crunches in small range 2x10 7: standing at [facility] stirring the pot 1 plate x10 CW and x10 CCW facing both lateral directions. Skilled Intervention: Patient was educated in proper exercise technique and purpose for exercises. Skilled judgment was provided in selection of appropriate interventions. Correct performance of therapeutic exercises was facilitated with verbal and visual cuing. Patient education as noted. Manual Therapy: Manual Traction: After therex, static manual lumbar belt traction x12 minutes with LEs on stool and force to pt tolerance. Skilled Intervention: Manual skills to improve joint mobility, ROM, and decrease pain. Utilized anatomy knowledge of the therapist, and assessment of patient's response to intervention. Billing Therapeutic Exercise Treatment Minutes: 33 Manual TherapyTreatment Minutes: 12 Total Treatment Time Minutes (timed/untimed): 45 Session Start Time : 1303 Session Stop Time : 1348 Kvng Forman, PT [facility] 12-16-2022 History of Present illness Narrative Episode Visit Count: 6 Therapist That Will Accept/Oversee The Plan Of Care: Kvng Forman PT Start of Care Date: 11/29/22 Onset Date: 11/29/20 Plan of Care Certification Date: 11/29/22 Next Certification Due Date: 01/03/23 Patient Identified by Name and Date of : Yes REHABILITATION AND SPORTS THERAPY PHYSICAL THERAPY TREATMENT NOTE ASSESSMENT: Fran Lopez tolerated the session with decreased symptoms. He demonstrated improvements in pain. The patient will continue to benefit from ongoing skilled physical therapy to progress toward set goals. PLAN FOR NEXT VISIT: Continue with active therex for postural stretching and strengthening with flexion directional preference and continue manual lumbar belt traction. Progress strengthening to tolerance. Consider additional upright strengthening for functional purposes. SUBJECTIVE: Pt reports that yesterday was a bad day but today is a good day without explanation. He feels that PT session treatments are helping. He reports compliance with HEP 2x day. He denies any pain to start today, not even driving here today. Pain: Pain Pain Level: 0 Pain Location: Leg - Right, Leg - Left, Buttocks - Right, Buttocks - Left, Low Back/Lumbar Spine - Right, Low Back/Lumbar Spine - Left Description: (no pain to start today) Frequency: Intermittent Post Treatment Pain Post Treatment Pain Level: 0 Post Treatment Pain Location: Leg - Right, Leg - Left, Buttocks - Right, Buttocks - Left Post Treatment Symptoms: No pain before, during or after session. OBJECTIVE MEASURES WITH LEVEL OF FUNCTION: TREATMENT: Therapeutic Exercise: 1: LánzanosFit StepOne seat #15 x6 minutes resistance level 1 (pt provided an update on his condition and therapist reviewed plan of care with patient. Recommendations made to use HEP for symptom management.) 2: supine B SKTC 3x30 seconds 3: supine DKTC 3x30 seconds 4: supine LTR 2x10 5: supine posterior pelvic tilts held with B alt marching raises 3x5 6: crunches in small range 2x10 7: standing at [facility] stirring the pot 1 plate x10 CW and x10 CCW facing both lateral directions. Skilled Intervention: Patient was educated in proper exercise technique and purpose for exercises. Skilled judgment was provided in selection of appropriate interventions. Correct performance of therapeutic exercises was facilitated with verbal and visual cuing. Patient education as noted. Manual Therapy: Manual Traction: After therex, static manual lumbar belt traction x12 minutes with LEs on stool and force to pt tolerance. Skilled Intervention: Manual skills to improve joint mobility, ROM, and decrease pain. Utilized anatomy knowledge of the therapist, and assessment of patient's response to intervention. Billing Therapeutic Exercise Treatment Minutes: 33 Manual TherapyTreatment Minutes: 12 Total Treatment Time Minutes (timed/untimed): 45 Session Start Time : 1303 Session Stop Time : 1348 Kvng Forman PT documented in this encounter [facility] 12-13-2022 Note HNO ID: [id number] Author: Kvng Forman PT Service: ? Author Type: Physical Therapist Type: Progress Notes Filed: 12/13/2022 4:25 PM Note Text: Episode Visit Count: 5 Therapist That Will Accept/Oversee The Plan Of Care: Kvng Forman PT Start of Care Date: 11/29/22 Onset Date: 11/29/20 Plan of Care Certification Date: 11/29/22 Next Certification Due Date: 01/03/23 Patient Identified by Name and Date of : Yes REHABILITATION AND SPORTS THERAPY PHYSICAL THERAPY TREATMENT NOTE ASSESSMENT: Fran Rascon Marinosanaz tolerated the session with decreased symptoms. He demonstrated improvements in pain post-PT session. The patient will continue to benefit from ongoing skilled physical therapy to progress toward set goals. PLAN FOR NEXT VISIT: Continue with active therex for postural stretching and strengthening with flexion directional preference and continue manual lumbar belt traction. Progress strengthening to tolerance. Consider additional upright strengthening for functional purposes. SUBJECTIVE: Pt reports that currently he is having increased pain secondary to a change in his morning routine. He reports that he did not attempt his HEP yet today but typically he completes HEP 2x day. Overall, he states that he is a little better. Pain: Pain Pain Level: 9 Pain Location: Leg - Right, Leg - Left, Buttocks - Right, Buttocks - Left Description: Sharp Frequency: Intermittent, Standing, Walking (rising) Post Treatment Pain Post Treatment Pain Level: 0 Post Treatment Pain Location: Leg - Right, Leg - Left, Buttocks - Right, Buttocks - Left Post Treatment Symptoms: After session, pt reported that he was pain-free and this was significantly better than the 9/10 he had to start today. OBJECTIVE MEASURES WITH LEVEL OF FUNCTION: TREATMENT: Therapeutic Exercise: 1: SciFit StepOne seat #15 x6 minutes resistance level 1 (pt provided an update on his condition and therapist reviewed plan of care with patient. Recommendations made to use HEP for symptom management.) 2: supine B SKTC 3x30 seconds 3: supine DKTC 3x30 seconds 4: supine LTR 2x10 5: supine posterior pelvic tilts held with B alt marching raises 3x5 6: crunches in small range 2x8 7: supine isometric abdominal exercise via shoulder extension 2 second holds 2x10 Skilled Intervention: Patient was educated in proper exercise technique and purpose for exercises. Skilled judgment was provided in selection of appropriate interventions. Correct performance of therapeutic exercises was facilitated with verbal and visual cuing. Patient education as noted. Manual Therapy: Manual Traction: After therex, static manual lumbar belt traction x10 minutes with LEs on stool and force to pt tolerance. Skilled Intervention: Manual skills to improve joint mobility, ROM, and decrease pain. Utilized anatomy knowledge of the therapist, and assessment of patient's response to intervention. Billing Therapeutic Exercise Treatment Minutes: 35 Manual TherapyTreatment Minutes: 10 Total Treatment Time Minutes (timed/untimed): 45 Session Start Time : 1535 Session Stop Time : 1620 Kvng Forman PT [facility] 12-08-2022 Note HNO ID: [id number] Author: Kvng Forman PT Service: ? Author Type: Physical Therapist Type: Progress Notes Filed: 12/08/2022 4:54 PM Note Text: Episode Visit Count: 4 Therapist That Will Accept/Oversee The Plan Of Care: Kvng Forman PT Start of Care Date: 11/29/22 Onset Date: 11/29/20 Plan of Care Certification Date: 11/29/22 Next Certification Due Date: 01/03/23 Patient Identified by Name and Date of : Yes REHABILITATION AND SPORTS THERAPY PHYSICAL THERAPY TREATMENT NOTE ASSESSMENT: Fran Rascon John tolerated the session with fatigue, decreased symptoms, expected muscle soreness, and no issues. He demonstrated improvements in pain in short term and mild custodial improvement. The patient will continue to benefit from ongoing skilled physical therapy to progress toward set goals. PLAN FOR NEXT VISIT: Continue with active therex for postural stretching and strengthening with flexion directional preference and continue manual lumbar belt traction. Progress strengthening to tolerance. Consider additional upright strengthening for functional purposes. SUBJECTIVE: Pt reports compliance with HEP 2x day. Overall he reports that he is feeling better with less pain. As a result of decreased pain, he has been able to do more functionally. Pain: Pain Pain Level: 3 Pain Location: Leg - Right, Leg - Left Description: Sharp, Aching ( persistent ) Frequency: Intermittent, Standing Post Treatment Pain Post Treatment Pain Level: Better Post Treatment Pain Location: Leg - Right, Leg - Left Post Treatment Symptoms: After session pt reported stiffness in central low back but he reported 0/10 pain. OBJECTIVE MEASURES WITH LEVEL OF FUNCTION: TREATMENT: Therapeutic Exercise: 1: [employer] StepOne seat #15 x6 minutes resistance level 1 (pt provided an update on his condition and therapist reviewed plan of care with patient. Directional preference reviewed.) 2: supine B SKTC x30 seconds 3: supine DKTC x30 seconds 4: supine LTR 2x10 5: supine posterior pelvic tilts held with B alt UE raises 3x5 6: crunches in small range 3x5 7: supine isometric abdominal exercise via shoulder extension 2 second holds 2x10 8: standing at [facility] stirring the pot 1 plate x10 CW and x10 CCW facing both lateral directions. 9: seated at [facility], 2 plates plus 1 round pull downs with maria del rosario overhead elbows extended 3x10 Skilled Intervention: Patient was educated in proper exercise technique and purpose for exercises. Skilled judgment was provided in selection of appropriate interventions. Correct performance of therapeutic exercises was facilitated with verbal, visual, and tactile cuing. Patient education as noted. Manual Therapy: Manual Traction: After therex, static manual lumbar belt traction x10 minutes with LEs on stool and force to pt tolerance. Skilled Intervention: Manual skills to improve joint mobility, ROM, and decrease pain. Utilized anatomy knowledge of the therapist, and assessment of patient's response to intervention. Billing Therapeutic Exercise Treatment Minutes: 45 Manual TherapyTreatment Minutes: 10 Total Treatment Time Minutes (timed/untimed): 55 Session Start Time : 1550 Session Stop Time : 1644 Kvng Forman PT [facility] 12-08-2022 History of Present illness Narrative Episode Visit Count: 4 Therapist That Will Accept/Oversee The Plan Of Care: Kvng Forman PT Start of Care Date: 11/29/22 Onset Date: 11/29/20 Plan of Care Certification Date: 11/29/22 Next Certification Due Date: 01/03/23 Patient Identified by Name and Date of : Yes REHABILITATION AND SPORTS THERAPY PHYSICAL THERAPY TREATMENT NOTE ASSESSMENT: Fran Lopez tolerated the session with fatigue, decreased symptoms, expected muscle soreness, and no issues. He demonstrated improvements in pain in short term and mild custodial improvement. The patient will continue to benefit from ongoing skilled physical therapy to progress toward set goals. PLAN FOR NEXT VISIT: Continue with active therex for postural stretching and strengthening with flexion directional preference and continue manual lumbar belt traction. Progress strengthening to tolerance. Consider additional upright strengthening for functional purposes. SUBJECTIVE: Pt reports compliance with HEP 2x day. Overall he reports that he is feeling better with less pain. As a result of decreased pain, he has been able to do more functionally. Pain: Pain Pain Level: 3 Pain Location: Leg - Right, Leg - Left Description: Sharp, Aching ( persistent ) Frequency: Intermittent, Standing Post Treatment Pain Post Treatment Pain Level: Better Post Treatment Pain Location: Leg - Right, Leg - Left Post Treatment Symptoms: After session pt reported stiffness in central low back but he reported 0/10 pain. OBJECTIVE MEASURES WITH LEVEL OF FUNCTION: TREATMENT: Therapeutic Exercise: 1: [employer]án[employer] StepOne seat #15 x6 minutes resistance level 1 (pt provided an update on his condition and therapist reviewed plan of care with patient. Directional preference reviewed.) 2: supine B SKTC x30 seconds 3: supine DKTC x30 seconds 4: supine LTR 2x10 5: supine posterior pelvic tilts held with B alt UE raises 3x5 6: crunches in small range 3x5 7: supine isometric abdominal exercise via shoulder extension 2 second holds 2x10 8: standing at Hoist stirring the pot 1 plate x10 CW and x10 CCW facing both lateral directions. 9: seated at [facility], 2 plates plus 1 round pull downs with maria del rosario overhead elbows extended 3x10 Skilled Intervention: Patient was educated in proper exercise technique and purpose for exercises. Skilled judgment was provided in selection of appropriate interventions. Correct performance of therapeutic exercises was facilitated with verbal, visual, and tactile cuing. Patient education as noted. Manual Therapy: Manual Traction: After therex, static manual lumbar belt traction x10 minutes with LEs on stool and force to pt tolerance. Skilled Intervention: Manual skills to improve joint mobility, ROM, and decrease pain. Utilized anatomy knowledge of the therapist, and assessment of patient's response to intervention. Billing Therapeutic Exercise Treatment Minutes: 45 Manual TherapyTreatment Minutes: 10 Total Treatment Time Minutes (timed/untimed): 55 Session Start Time : 1550 Session Stop Time : 1645 Kvng Forman PT documented in this encounter [facility] 12-08-2022 Miscellaneous Notes Patient has been identified by name and date of : Yes Last office visit in this department: 11/02/2022 RX INSTRUCTIONS: Patient aware RX will be sent to pharmacy. No need to notify patient. Patient phones requesting refills as follows: Requested Prescriptions Pending Prescriptions Disp Refills atorvastatin (LIPITOR) 40 mg tablet 90 tablet 0 Sig: Take 1 tablet by mouth once daily. Please review and advise. Amberly Velazquez documented in this encounter [facility] 12-06-2022 Note HNO ID: [id number] Author: Kvng Forman PT Service: ? Author Type: Physical Therapist Type: Progress Notes Filed: 12/06/2022 3:35 PM Note Text: Episode Visit Count: 3 Therapist That Will Accept/Oversee The Plan Of Care: Kvng Formna PT Start of Care Date: 11/29/22 Onset Date: 11/29/20 Plan of Care Certification Date: 11/29/22 Next Certification Due Date: 01/03/23 Patient Identified by Name and Date of : Yes REHABILITATION AND SPORTS THERAPY PHYSICAL THERAPY TREATMENT NOTE ASSESSMENT: Fran Lopez tolerated the session with decreased symptoms. He demonstrated improvements in pain post-PT sessions. The patient will continue to benefit from ongoing skilled physical therapy to progress toward set goals. PLAN FOR NEXT VISIT: Continue with active therex for postural stretching and strengthening with flexion directional preference and continue manual lumbar belt traction. Progress strengthening to tolerance. SUBJECTIVE: Pt reports that overall he is feeling somewhat better with less pain down into his hips. He reports compliance with HEP 1x day and he hopes to increase this to 2x day. He reports feeling better after last session and that the relief lasted for 4 hours. He reports that he received his foam wedge at home. Pain: Pain Pain Level: 5 Pain Location: Leg - Right, Leg - Left Description: Sharp Frequency: Intermittent, Standing (varies in intensity) Post Treatment Pain Post Treatment Pain Level: Better Post Treatment Pain Location: Leg - Right, Leg - Left Post Treatment Symptoms: After traction and as he was leaving he stated that he was definitely better. OBJECTIVE MEASURES WITH LEVEL OF FUNCTION: TREATMENT: Therapeutic Exercise: 1: Sci[employer] StepOne seat #15 x6 minutes resistance level 1 (pt provided an update on his condition and therapist reviewed plan of care with patient.) 2: supine B SKTC 3x30 seconds 3: supine DKTC 3x30 seconds 4: supine LTR 2x10 5: supine posterior pelvic tilts held with B alt UE raises 3x5 6: crunches in small range 3x5 Skilled Intervention: Patient was educated in proper exercise technique and purpose for exercises. Skilled judgment was provided in selection of appropriate interventions. Correct performance of therapeutic exercises was facilitated with verbal and visual cuing. Patient education as noted. Manual Therapy: Manual Traction: After therex, static manual lumbar belt traction x10 minutes with LEs on stool and force to pt tolerance. Skilled Intervention: Manual skills to improve joint mobility, ROM, and decrease pain. Utilized anatomy knowledge of the therapist, and assessment of patient's response to intervention. Billing Therapeutic Exercise Treatment Minutes: 33 Manual TherapyTreatment Minutes: 10 Total Treatment Time Minutes (timed/untimed): 43 Session Start Time : 1450 Session Stop Time : 1533 Kvng Forman PT [facility] 12-06-2022 History of Present illness Narrative Episode Visit Count: 3 Therapist That Will Accept/Oversee The Plan Of Care: Kvng Forman PT Start of Care Date: 11/29/22 Onset Date: 11/29/20 Plan of Care Certification Date: 11/29/22 Next Certification Due Date: 01/03/23 Patient Identified by Name and Date of : Yes REHABILITATION AND SPORTS THERAPY PHYSICAL THERAPY TREATMENT NOTE ASSESSMENT: Fran Rascon Marinosanaz tolerated the session with decreased symptoms. He demonstrated improvements in pain post-PT sessions. The patient will continue to benefit from ongoing skilled physical therapy to progress toward set goals. PLAN FOR NEXT VISIT: Continue with active therex for postural stretching and strengthening with flexion directional preference and continue manual lumbar belt traction. Progress strengthening to tolerance. SUBJECTIVE: Pt reports that overall he is feeling somewhat better with less pain down into his hips. He reports compliance with HEP 1x day and he hopes to increase this to 2x day. He reports feeling better after last session and that the relief lasted for 4 hours. He reports that he received his foam wedge at home. Pain: Pain Pain Level: 5 Pain Location: Leg - Right, Leg - Left Description: Sharp Frequency: Intermittent, Standing (varies in intensity) Post Treatment Pain Post Treatment Pain Level: Better Post Treatment Pain Location: Leg - Right, Leg - Left Post Treatment Symptoms: After traction and as he was leaving he stated that he was definitely better. OBJECTIVE MEASURES WITH LEVEL OF FUNCTION: TREATMENT: Therapeutic Exercise: 1: Lánz[employer] StepOne seat #15 x6 minutes resistance level 1 (pt provided an update on his condition and therapist reviewed plan of care with patient.) 2: supine B SKTC 3x30 seconds 3: supine DKTC 3x30 seconds 4: supine LTR 2x10 5: supine posterior pelvic tilts held with B alt UE raises 3x5 6: crunches in small range 3x5 Skilled Intervention: Patient was educated in proper exercise technique and purpose for exercises. Skilled judgment was provided in selection of appropriate interventions. Correct performance of therapeutic exercises was facilitated with verbal and visual cuing. Patient education as noted. Manual Therapy: Manual Traction: After therex, static manual lumbar belt traction x10 minutes with LEs on stool and force to pt tolerance. Skilled Intervention: Manual skills to improve joint mobility, ROM, and decrease pain. Utilized anatomy knowledge of the therapist, and assessment of patient's response to intervention. Billing Therapeutic Exercise Treatment Minutes: 33 Manual TherapyTreatment Minutes: 10 Total Treatment Time Minutes (timed/untimed): 43 Session Start Time : 1450 Session Stop Time : 1533 Kvng Forman PT documented in this encounter [facility] 12-01-2022 Note HNO ID: [id number] Author: Kvng Forman PT Service: ? Author Type: Physical Therapist Type: Progress Notes Filed: 12/01/2022 1:30 PM Note Text: Episode Visit Count: 2 Therapist That Will Accept/Oversee The Plan Of Care: Kvng Forman PT Start of Care Date: 11/29/22 Onset Date: 08/01/21 Plan of Care Certification Date: 11/29/22 Next Certification Due Date: 01/03/23 Patient Identified by Name and Date of : Yes REHABILITATION AND SPORTS THERAPY PHYSICAL THERAPY TREATMENT NOTE ASSESSMENT: Fran Lopez tolerated the session with decreased symptoms. He demonstrated improvements in pain and exercise tolerance. The patient will continue to benefit from ongoing skilled physical therapy to progress toward set goals. PLAN FOR NEXT VISIT: Continue with active therex for postural stretching and strengthening with flexion directional preference and continue manual lumbar belt traction. SUBJECTIVE: Pt reports that overall he is feeling approximately the same. He reports that he has ordered a wedge but it has not arrived yet. Because he has not received the wedge, he has not started HEP yet. He reports that his pain is sigificant today without explanation. Pain: Pain Pain Level: 9 Pain Location: Low Back/Lumbar Spine- Midline, Buttocks - Left, Buttocks - Right Description: Sharp Frequency: Continuous, Standing, Walking Post Treatment Pain Post Treatment Pain Level: 2 Post Treatment Pain Location: Low Back/Lumbar Spine - Right, Low Back/Lumbar Spine - Left, Low Back/Lumbar Spine- Midline, Hip - Right, Hip - Left, Leg - Right, Leg - Left Post Treatment Pain Description: ( much much much better ) Post Treatment Symptoms: After treatment session today, pt reported a dramatic decrease in pain from 8-9/10 to 2/10 as he was leaving. OBJECTIVE MEASURES WITH LEVEL OF FUNCTION: TREATMENT: Therapeutic Exercise: 1: SciFit StepOne seat #15 x6 minutes resistance level 1 (pt provided an update on his condition and therapist reviewed plan of care with patient.) 2: supine B SKTC 3x30 seconds 3: supine DKTC 3x30 seconds 4: supine LTR 2x10 5: supine posterior pelvic tilts 2x10 6: HEP reviewed and he was advised to begin CASSY using pillows until wedge arrives Skilled Intervention: Patient was educated in proper exercise technique and purpose for exercises. Skilled judgment was provided in selection of appropriate interventions. Correct performance of therapeutic exercises was facilitated with verbal, visual, and tactile cuing. Patient education as noted. Manual Therapy: Manual Traction: After therex, static manual lumbar belt traction x10 minutes with LEs on stool and force to pt tolerance. Skilled Intervention: Manual skills to improve joint mobility, ROM, and decrease pain. Utilized anatomy knowledge of the therapist, and assessment of patient's response to intervention. Billing Therapeutic Exercise Treatment Minutes: 35 Manual TherapyTreatment Minutes: 10 Total Treatment Time Minutes (timed/untimed): 45 Session Start Time : 1050 Session Stop Time : 1135 Kvng Forman PT [facility] 12-01-2022 History of Present illness Narrative Episode Visit Count: 2 Therapist That Will Accept/Oversee The Plan Of Care: Kvng Forman PT Start of Care Date: 11/29/22 Onset Date: 11/29/20 Plan of Care Certification Date: 11/29/22 Next Certification Due Date: 01/03/23 Patient Identified by Name and Date of : Yes REHABILITATION AND SPORTS THERAPY PHYSICAL THERAPY TREATMENT NOTE ASSESSMENT: Fran Lopez tolerated the session with decreased symptoms. He demonstrated improvements in pain and exercise tolerance. The patient will continue to benefit from ongoing skilled physical therapy to progress toward set goals. PLAN FOR NEXT VISIT: Continue with active therex for postural stretching and strengthening with flexion directional preference and continue manual lumbar belt traction. SUBJECTIVE: Pt reports that overall he is feeling approximately the same. He reports that he has ordered a wedge but it has not arrived yet. Because he has not received the wedge, he has not started HEP yet. He reports that his pain is sigificant today without explanation. Pain: Pain Pain Level: 9 Pain Location: Low Back/Lumbar Spine- Midline, Buttocks - Left, Buttocks - Right Description: Sharp Frequency: Continuous, Standing, Walking Post Treatment Pain Post Treatment Pain Level: 2 Post Treatment Pain Location: Low Back/Lumbar Spine - Right, Low Back/Lumbar Spine - Left, Low Back/Lumbar Spine- Midline, Hip - Right, Hip - Left, Leg - Right, Leg - Left Post Treatment Pain Description: ( much much much better ) Post Treatment Symptoms: After treatment session today, pt reported a dramatic decrease in pain from 8-9/10 to 2/10 as he was leaving. OBJECTIVE MEASURES WITH LEVEL OF FUNCTION: TREATMENT: Therapeutic Exercise: 1: SciFit StepOne seat #15 x6 minutes resistance level 1 (pt provided an update on his condition and therapist reviewed plan of care with patient.) 2: supine B SKTC 3x30 seconds 3: supine DKTC 3x30 seconds 4: supine LTR 2x10 5: supine posterior pelvic tilts 2x10 6: HEP reviewed and he was advised to begin CASSY using pillows until wedge arrives Skilled Intervention: Patient was educated in proper exercise technique and purpose for exercises. Skilled judgment was provided in selection of appropriate interventions. Correct performance of therapeutic exercises was facilitated with verbal, visual, and tactile cuing. Patient education as noted. Manual Therapy: Manual Traction: After therex, static manual lumbar belt traction x10 minutes with LEs on stool and force to pt tolerance. Skilled Intervention: Manual skills to improve joint mobility, ROM, and decrease pain. Utilized anatomy knowledge of the therapist, and assessment of patient's response to intervention. Billing Therapeutic Exercise Treatment Minutes: 35 Manual TherapyTreatment Minutes: 10 Total Treatment Time Minutes (timed/untimed): 45 Session Start Time : 1050 Session Stop Time : 1135 Kvng Forman PT documented in this encounter [facility] 11-29-2022 Note HNO ID: [id number] Author: Sherrell Hayes PT Service: ? Author Type: Physical Therapist Type: Progress Notes Filed: 11/29/2022 12:58 PM Note Text: Episode Visit Count: 1 Therapist That Will Accept/Oversee The Plan Of Care: Sherrell Hayes Start of Care Date: 11/29/22 Onset Date: 11/29/20 Plan of Care Certification Date: 11/29/22 Next Certification Due Date: 01/03/23 Patient Identified by Name and Date of : Yes REHABILITATION AND SPORTS THERAPY PHYSICAL THERAPY EVALUATION PLAN OF CARE: Assessment: Fran Lopez presents with diagnosis of chronic bilateral low back pain with bilateral sciatica that interferes with standing, walking, bending (5-7 minutes duration static standing, better tolerance with dynamic standing reported by pt.) . He presents with impairments in ADL's, balance, gait, independence in exercise, joint mobility, overall function, patient reported outcome measures, posture, range of motion, strength, and symptom management. PROMIS? (Patient-Reported Outcomes Measurement Information System) scores were reviewed and physical function domain identified as a rehabilitation concern. Prognosis for therapy is Good due to: current objective clinical presentation, within-session changes, positive past response to therapy, good support system/ coping skills . He will benefit from skilled therapy services to meet the goals established for this plan of care as noted below. Classification Low Back Pain Subgroup Classification: Specific exercise subgroup: recommended visits 8. Specific Exercies Subgroup Classification based on: directional preference Goals for Episode of Care: created on 11/29/22 through 01/24/23 Independent in home exercises. Patient will decrease pain rating by 2 points to meet minimal clinical important difference for numeric pain rating scale. Restore pain-free lumbar ROM to moderate to minimal limitation extension to allow for improved posture and transitional movements without increased symptoms. Stand / Walk 20-30 minutes without limitation due to pain/symptoms. Sleep through night without pain/symptoms. Patient will be able to correct postural deviations independently in order to improve postural alignment of trunk during transfers, ambulation, sitting, standing, and functional activities. Patient Goals: reduce low back pain Planned Interventions, Frequency, and Duration: Current Frequency: 2x/week Duration: 8 weeks Total Number of Visits Planned: 16 Planned Treatment Interventions: Therapeutic exercise (53280), Neuromuscular re-education (97234), Manual therapy (39814), Therapeutic activities (05905), Self-skilled nursing management (44836), Gait Training (40156), Patient/Family/Caregiver Education PLAN FOR NEXT VISIT: Pt. requests to work with Kvng Forman PT. Pt. has been seen by this therapist before and requested this when scheduled. Patient demonstrates good understanding of plan of care and treatment. The above goals and plan of care were discussed and agreed upon by patient/family. Transfer of Care Due To: Patient Preference Patient transferring care to: Kvng Forman PT SUBJECTIVE: Fran Lopez is a 77 year old male seen today for for chronic low back pain radiating into the bilateral buttocks and BLE's that onset about 2 year ago. Pt. has been seen by PT about 1 year ago with good results. He reports relief with flexion directional preference based exercises, but explains that he was unable to do the exercises at home as performed in the clinic due to not owning a wedge. Pt. has not completed his HEP since about Josefa time. Low back pain returned over the winter and has become gradually worse recently. Presents with BLE swelling, admits he supposed to be wearing compression stockings, but limited compliance due to diffculty donning. Attributes his imbalance to swollen feet. Only 1 fall on uneven terrain about a month ago in [place] reported by pt. 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 [facility] 11-29-2022 History of Present illness Narrative Episode Visit Count: 1 Therapist That Will Accept/Oversee The Plan Of Care: Sherrell Hayes Start of Care Date: 11/29/22 Onset Date: 11/29/20 Plan of Care Certification Date: 11/29/22 Next Certification Due Date: 01/03/23 Patient Identified by Name and Date of : Yes REHABILITATION AND SPORTS THERAPY PHYSICAL THERAPY EVALUATION PLAN OF CARE: Assessment: Fran Lopez presents with diagnosis of chronic bilateral low back pain with bilateral sciatica that interferes with standing, walking, bending (5-7 minutes duration static standing, better tolerance with dynamic standing reported by pt.) . He presents with impairments in ADL's, balance, gait, independence in exercise, joint mobility, overall function, patient reported outcome measures, posture, range of motion, strength, and symptom management. PROMIS (Patient-Reported Outcomes Measurement Information System) scores were reviewed and physical function domain identified as a rehabilitation concern. Prognosis for therapy is Good due to: current objective clinical presentation, within-session changes, positive past response to therapy, good support system/ coping skills . He will benefit from skilled therapy services to meet the goals established for this plan of care as noted below. Classification Low Back Pain Subgroup Classification: Specific exercise subgroup: recommended visits 8. Specific Exercies Subgroup Classification based on: directional preference Goals for Episode of Care: created on 11/29/22 through 01/24/23 Independent in home exercises. Patient will decrease pain rating by 2 points to meet minimal clinical important difference for numeric pain rating scale. Restore pain-free lumbar ROM to moderate to minimal limitation extension to allow for improved posture and transitional movements without increased symptoms. Stand / Walk 20-30 minutes without limitation due to pain/symptoms. Sleep through night without pain/symptoms. Patient will be able to correct postural deviations independently in order to improve postural alignment of trunk during transfers, ambulation, sitting, standing, and functional activities. Patient Goals: reduce low back pain Planned Interventions, Frequency, and Duration: Current Frequency: 2x/week Duration: 8 weeks Total Number of Visits Planned: 16 Planned Treatment Interventions: Therapeutic exercise (33342), Neuromuscular re-education (02368), Manual therapy (84242), Therapeutic activities (98597), Self-skilled nursing management (21681), Gait Training (24725), Patient/Family/Caregiver Education PLAN FOR NEXT VISIT: Pt. requests to work with Kvng Forman PT. Pt. has been seen by this therapist before and requested this when scheduled. Patient demonstrates good understanding of plan of care and treatment. The above goals and plan of care were discussed and agreed upon by patient/family. Transfer of Care Due To: Patient Preference Patient transferring care to: Kvng Forman PT SUBJECTIVE: Fran Lopez is a 77 year old male seen today for for chronic low back pain radiating into the bilateral buttocks and BLE's that onset about 2 year ago. Pt. has been seen by PT about 1 year ago with good results. He reports relief with flexion directional preference based exercises, but explains that he was unable to do the exercises at home as performed in the clinic due to not owning a wedge. Pt. has not completed his HEP since about Josefa time. Low back pain returned over the winter and has become gradually worse recently. Presents with BLE swelling, admits he supposed to be wearing compression stockings, but limited compliance due to diffculty donning. Attributes his imbalance to swollen feet. Only 1 fall on uneven terrain about a month ago in [place] reported by pt. 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 Intake Information: Prescription present Previous Treatment: (was taking aleve, instructed by referring provider to take tylenol per chart) Falls Interview: Fall without injury in the last year (in [place] uneven terrain) Red Flags Vertebral Fracture Red Flags: Age >70 Vertebral Fracture Clinical Reasoning: Proceed with caution due to the above (1-2) risk factors Abdominal Aortic Aneurysm Red Flags: Age >60 Abdominal Aortic Aneurysm Clinical Reasoning: Proceed with caution Cancer Red Flags: Age >50 or <20 Cancer Clinical Reasoning: Proceed with caution Infection Clinical Reasoning: No identified risk factors. Cauda Equina Syndrome Clinical Reasoning: No identified risk factors. Red Flags - Cervical Cancer Red Flags: Age >50 or <20 Cancer Clinical Reasoning: Proceed with caution Infection Clinical Reasoning: No identified risk factors. Spine History Symptoms Location at Onset: Back, Buttock Symptoms Since Onset: Worsening Pain is Worse Always: Lying, Standing Sleeping Position: Supine Sleep Affected by Pain: Pain keeps from falling asleep Pain: Pain Pain Level: 4 Pain Location: Low Back/Lumbar Spine- Midline, Buttocks - Left, Buttocks - Right Frequency: Standing Post Treatment Pain Post Treatment Pain Level: Better Post Treatment Pain Location: Low Back/Lumbar Spine- Midline Post Treatment Symptoms: almost non-existent PROMIS Scales Higher is Better 11/29/2022 Phys Func - Score 35 (moderate dysfunction) Phys Func - Percentile 7 % Self-Eff Symptom - Score 44 (Average) Self-Eff Symptom - Percentile 27 % T-scores: mean of general population = 50. 5 points is clinically meaningfully difference Percentiles provide an indication of how the patient's score ranks in relation to the general population. Higher percentile rankings indicate better function/quality of life. 50th percentile is the average of the general population and indicates half of respondents had a worse score. OBJECTIVE MEASURES WITH LEVEL OF FUNCTION: Posture / Alignment Posture: Forward head, Increased thoracic kyphosis, Decreased lumbar lordosis Sitting Posture: Decreased lumbar lordosis, Sits on right ischial tuberosity Sensation - Lumbar Sensation: Grossly Intact Lumbar Spine AROM Lumbar Flexion: Normal, Centralizing, Decreased pain Lumbar R Rotation: Normal Lumbar L Rotation: Normal Lumbar Spine AROM Comments: lumbar ROM testing completed unloaded hook lying Repeated Test Movements - Lumbar RFIL - Symptoms During: centralizing, decreases RFIL - Symptoms After: abolished Other Lumbar Repeated Test Movements: Yes Gait Gait: Independent Gait Distance (feet): 100 Gait Device: None Gait Deviations: General Deviations General Deviations/Observations: Wide base of support, Trunk Control Decreased, Flexed trunk posture Education: Education Learning Preferences: Demonstration, Explanation, Performance, Printed Materials Barriers: None Learning/educational needs: Plan of Care, Home exercise program, Posture Education Provided: Yes, see treatment interventions for education provided Education Provided To: Patient Education Mode/Type: Demonstration, Explanation/Discussion, Literature/Printed Materials, Performance Response to Education/Teach Back: States/Identifies, Return Demonstration TREATMENT: PT Treatment Interventions: Therapeutic Exercise, Self-Mcc Management Evaluation Therapeutic Exercise: 1: *S KTC 3x30 sec each side, on wedge 2: *B KTC 3x30 sec, on wedge 3: *alt pelvic rotation 2x10, on wedge 4: *PPT 2x10 5: *HEP 2-3x daily to self manage low back pain following or preceding prolonged standing/ambulation Skilled Intervention: Patient was educated in proper exercise technique and purpose for exercises. Reviewed and educated patient on additions/changes for home exercise program as above (*). Skilled judgment was provided in selection of appropriate interventions. Provided written instruction for home exercise program to facilitate proper performance and compliance. Correct performance of therapeutic exercises was facilitated with verbal and visual cuing. Educated patient on rationale for performing exercises in regards to increase ease of ADL and ROM and function . Patient education as noted. Self-Mcc Management: 1: *discussed centralization and directional preference with lumbar flexion based exercises 2: *discussed wedge may be purchased on [employer], provided dimensions and search words to pt. 3: *discussed how the diameter of the lumbar spine intervertebral foramen increases with flexion movement Skilled Intervention: Skilled judgment in the selection of proper modification for activity of daily living/home management based on clinical presentation, deficits, and needs. Provided written instruction for activities of daily living techniques to facilitate proper performance and compliance. Reviewed patient specific diagnosis in relation to activities of daily living/home management. Activity progression based on professional judgement. Moderate verbal cues for maintaining neutral spine alignment. Reviewed and educated patient on additions/changes for home program as noted above with an (*). Provided written instruction for home program to facilitate proper performance and compliance. Correct performance of home program was facilitated with verbal and visual cueing. Billing * Evaluation Low Complexity: 1 Unit Therapeutic Exercise Treatment Minutes: 15 Self-Care/Home Management Treatment Minutes: 10 Total Treatment Time Minutes (timed/untimed): 45 Session Start Time : 1200 Session Stop Time : 1245 Sherrell Hayes PT documented in this encounter [facility] 11-09-2022 Miscellaneous Notes Mychart message sent. Wilda Perea MA ----- Message from Marilia Orozco APRN.COMMISSARY HELPER sent at 11/08/2022 3:20 PM EDT ----- ECHO shows good heart pumping function with no valvular abnormalities. Marilia Orozco APRN.COMMISSARY HELPER documented in this encounter [facility] 11-07-2022 Note HNO ID: [id number] Author: Dafne Carrillo RN Service: ? Author Type: Registered Nurse Type: Progress Notes Filed: 11/09/2022 10:58 AM Note Text: 22 ga angio started to right forearm. Good blood return. Flushed easily with NSS. Dressing applied. Definity (Lot # [id number] 10-30-23) mixed per protocol. 1 cc administered throughout procedure. 9 cc discarded. Pt tolerated procedure well. No C/o's, Hep lock D/c'd and dressing applied. Patient discharged ambulatory with Emergency Medical Tech. Dafne Carrillo RN [facility] 11-07-2022 History of Present illness Narrative 22 ga angio started to right forearm. Good blood return. Flushed easily with NSS. Dressing applied. Definity (Lot # [id number] 10-30-23) mixed per protocol. 1 cc administered throughout procedure. 9 cc discarded. Pt tolerated procedure well. No C/o's, Hep lock D/c'd and dressing applied. Patient discharged ambulatory with Emergency Medical Tech. Dafne Carrillo RN documented in this encounter [facility] 11-03-2022 Miscellaneous Notes Left detailed message as noted. ----- Message from Agnes Diaz MD sent at 11/03/2022 9:18 AM EDT ----- Stable labs compared to last checks 6-12 months ago. Continue current regimen. Continue to work on low carb diet for A1c in prediabetic range. Low sodium diet and avoidance of NSAIDs for CKD stage 3. F/u as scheduled. documented in this encounter [facility] 11-02-2022 Note HNO ID: [id number] Author: Marilia Orozco APRN.COMMISSARY HELPER Service: ? Author Type: Nurse Practitioner Type: Progress Notes Filed: 11/02/2022 10:22 AM Note Text: 11/02/2022 Patient presents with: F/U 6 Month SUBJECTIVE: This is a 77 year old that is here today for Above Complaints. Since last office visit has been in good health without ER visits or hospitalizations. MARTIN: wearing CPAP nightly. Sleeping well and feels refreshed in the morning HYPOTHYROIDISM: taking synthroid as prescribed without side effects HTN: Patient is compliant with meds Yes Monitors bp at home: No. Denies side effects: No. Chest pain: No. Dyspnea: No. Edema: Yes. Palpitations: No. Syncope: No. Headache: No. Dizziness: No. ONSET: years LOCATION: low back DURATION: intermittent CHARACTERISTICS: sharp AGGRAVATING FEATURES: taking aleve daily ALLEVIATING FEATURES: can't pinpoint any certain events which aggravates it RADIATION: into cheeks and down legs Reports went to PT last year but didn't really keep up with it and back is starting to hurt again Denies present injury, past surgery, extremity numbness, tingling, weakness, saddle anaesthesia, urinary/bowel incontinence or inability. 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 Chowdary in [place] Stage 3a chronic kidney disease (HCC) Venous insufficiency ALLERGIES Norvasc [Amlodipine Besylate], Venom-Wasp, and Zithromax [Azithromycin] MEDICATIONS Current Outpatient Medications Medication Sig atorvastatin (LIPITOR) 40 mg tablet Take 1 tablet by mouth once daily. amoxicillin (POLYMOX, AMOXIL) 500 mg capsule Take four capsules one hour before dental procedure. hydroCHLOROthiazide (HYDRODIURIL, ESIDRIX) 25 mg tablet Take 1 tablet by mouth once daily. levothyroxine (SYNTHROID) 125 mcg tablet Take 1 tablet by mouth once daily. TAKE 1 TABLET BY MOUTH ONCE DAILY. TAKE ON EMPTY STOMACH. FOR THYROID CPAP AutoPAP [id number]. Mask per preference, tubing, filters, humidity. Lifetime Supplies. Dx: G47.33. Fax 30 day compliance report to [phone]. lisinopril (ZESTRIL, PRINIVIL) 40 mg tablet Take 1 tablet by mouth once daily. metoprolol succinate ER (TOPROL XL) 25 mg 24 hr tablet Take 1 tablet by mouth once daily. CPAP Please provide mask fitting. Pt with subjective and some degree objective leaks. Prefers nasal type mask. Thank you. DME = [facility] acetaminophen 650 mg CR tablet Take 650 mg by mouth as needed. aspirin, enteric coated (ASPIRIN, ENTERIC COATED) 81 mg EC tablet Take 81 mg by mouth once daily. MULTIVITAMIN,TX-MINERALS ORAL TAB Take one(1) tablet daily. No current facility-administered medications for this visit. Medications and allergies reviewed by this provider. SOCIAL HISTORY Social History Tobacco Use Smoking status: Never Smokeless tobacco: Never Vaping Use Vaping Use: Never used Substance Use Topics Alcohol use: No Drug use: No REVIEW OF SYSTEMS All other reviewed and negative other than HPI. OBJECTIVE: BP 132/86 Pulse 60 Resp 18 Wt 132.3 kg (291 lb 9.6 oz) SpO2 96% BMI 41.84 kg/m? . Vital signs reviewed by this provider. APPEARANCE Well appearing, alert, in no acute distress, well-hydrated, well nourished. and Obese EYES PERRLA, conjunctiva and sclera normal. HEART RRR with normal S1 and S2, no murmurs, no gallops, no JVD appreciated LUNG clear to auscultation. No wheezes, rhonchi or rales BACK: limitation of motion - flexion: moderate and extension: moderate. + SLR. No TTP. Skin without lesion or rashes to lower back EXTREMITIES Trace to 1+ BLE NEURO Awake, alert and oriented x 3, Normal gait, No involuntary motions., negative. Decreased patellar reflexes. findings: muscle tone normal, muscle strength normal Component Latest Ref Rng AND Units 04/13/2022 Protein, Total 6.3 - 8.0 g/dL 6.8 Albumin 3.9 - 4.9 g/dL 3.9 Calcium 8.5 - 10.2 mg/dL 9.1 Bilirubin, Total 0.2 - 1.3 mg/dL 0.5 Alkaline Phosphatase 38 - 113 U/L 69 AST 14 - 40 U/L 25 ALT 10 - 54 U/L 22 Glucose 74 - 99 mg/dL 109 (H) BUN 9 - 24 mg/dL 22 Creatinine 0.73 - 1.22 mg/dL 1.37 (H) Sodium 136 - 144 mmol/L 141 [place] (more content not included)... [facility] 11-02-2022 History of Present illness Narrative 11/02/2022 Patient presents with: F/U 6 Month SUBJECTIVE: This is a 77 year old that is here today for Above Complaints. Since last office visit has been in good health without ER visits or hospitalizations. MARTIN: wearing CPAP nightly. Sleeping well and feels refreshed in the morning HYPOTHYROIDISM: taking synthroid as prescribed without side effects HTN: Patient is compliant with meds Yes Monitors bp at home: No. Denies side effects: No. Chest pain: No. Dyspnea: No. Edema: Yes. Palpitations: No. Syncope: No. Headache: No. Dizziness: No. ONSET: years LOCATION: low back DURATION: intermittent CHARACTERISTICS: sharp AGGRAVATING FEATURES: taking aleve daily ALLEVIATING FEATURES: can't pinpoint any certain events which aggravates it RADIATION: into cheeks and down legs Reports went to PT last year but didn't really keep up with it and back is starting to hurt again Denies present injury, past surgery, extremity numbness, tingling, weakness, saddle anaesthesia, urinary/bowel incontinence or inability. 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 Chowdary in [place] Stage 3a chronic kidney disease (HCC) Venous insufficiency ALLERGIES Norvasc [Amlodipine Besylate], Venom-Wasp, and Zithromax [Azithromycin] MEDICATIONS Current Outpatient Medications Medication Sig atorvastatin (LIPITOR) 40 mg tablet Take 1 tablet by mouth once daily. amoxicillin (POLYMOX, AMOXIL) 500 mg capsule Take four capsules one hour before dental procedure. hydroCHLOROthiazide (HYDRODIURIL, ESIDRIX) 25 mg tablet Take 1 tablet by mouth once daily. levothyroxine (SYNTHROID) 125 mcg tablet Take 1 tablet by mouth once daily. TAKE 1 TABLET BY MOUTH ONCE DAILY. TAKE ON EMPTY STOMACH. FOR THYROID CPAP AutoPAP [id number]. Mask per preference, tubing, filters, humidity. Lifetime Supplies. Dx: G47.33. Fax 30 day compliance report to [phone]. lisinopril (ZESTRIL, PRINIVIL) 40 mg tablet Take 1 tablet by mouth once daily. metoprolol succinate ER (TOPROL XL) 25 mg 24 hr tablet Take 1 tablet by mouth once daily. CPAP Please provide mask fitting. Pt with subjective and some degree objective leaks. Prefers nasal type mask. Thank you. DME = [facility] acetaminophen 650 mg CR tablet Take 650 mg by mouth as needed. aspirin, enteric coated (ASPIRIN, ENTERIC COATED) 81 mg EC tablet Take 81 mg by mouth once daily. MULTIVITAMIN,TX-MINERALS ORAL TAB Take one(1) tablet daily. No current facility-administered medications for this visit. Medications and allergies reviewed by this provider. SOCIAL HISTORY Social History Tobacco Use Smoking status: Never Smokeless tobacco: Never Vaping Use Vaping Use: Never used Substance Use Topics Alcohol use: No Drug use: No REVIEW OF SYSTEMS All other reviewed and negative other than HPI. OBJECTIVE: BP 132/86 Pulse 60 Resp 18 Wt 132.3 kg (291 lb 9.6 oz) SpO2 96% BMI 41.84 kg/m . Vital signs reviewed by this provider. APPEARANCE Well appearing, alert, in no acute distress, well-hydrated, well nourished. and Obese EYES PERRLA, conjunctiva and sclera normal. HEART RRR with normal S1 and S2, no murmurs, no gallops, no JVD appreciated LUNG clear to auscultation. No wheezes, rhonchi or rales BACK: limitation of motion - flexion: moderate and extension: moderate. + SLR. No TTP. Skin without lesion or rashes to lower back EXTREMITIES Trace to 1+ BLE NEURO Awake, alert and oriented x 3, Normal gait, No involuntary motions., negative. Decreased patellar reflexes. findings: muscle tone normal, muscle strength normal Component Latest Ref Rng & Units 04/13/2022 Protein, Total 6.3 - 8.0 g/dL 6.8 Albumin 3.9 - 4.9 g/dL 3.9 Calcium 8.5 - 10.2 mg/dL 9.1 Bilirubin, Total 0.2 - 1.3 mg/dL 0.5 Alkaline Phosphatase 38 - 113 U/L 69 AST 14 - 40 U/L 25 ALT 10 - 54 U/L 22 Glucose 74 - 99 mg/dL 109 (H) BUN 9 - 24 mg/dL 22 Creatinine 0.73 - 1.22 mg/dL 1.37 (H) Sodium 136 - 144 mmol/L 141 Potassium 3.7 - 5.1 mmol/L 4.4 Chloride 97 - 105 mmol/L 108 (H) CO2 22 - 30 mmol/L 22 Anion Gap 9 - 18 mmol/L 11 eGFR >=60 mL/min/1.73m 53 (L) Component Latest Ref Rng & Units 12/01/2021 Hemoglobin A1C 4.3 - 5.6 % 5.8 (H) Component Latest Ref Rng & Units 07/12/2021 Total Cholesterol, Nonfasting <200 mg/dL 121 Triglycerides, Nonfasting <150 mg/dL 257 (H) HDL Cholesterol, Nonfasting >39 mg/dL 28 (L) LDL Cholesterol, Nonfasting <100 mg/dL 42 Non HDL Cholesterol, Nonfasting <130 mg/dL 93 VLDL Cholesterol, Nonfasting <30 mg/dL 51 (H) Total Chol/HDL Ratio, Nonfasting <5.10 mg/dL 4.32 LDL/HDL Ratio, Nonfasting <2.54 mg/dL 1.50 Component Latest Ref Rng & Units 07/12/2021 TSH 0.270 - 4.200 mIU/L 0.894 ADVANCE DIRECTIVE DISCUSSION Never done DEPRESSION ASSESSMENT due on 05/01/2022 LDL CHOLESTEROL due on 07/12/2022 HEMOGLOBIN/HEMATOCRIT due on 07/12/2022 INFLUENZA(1) due on 12/30/2022 SERUM CREATININE due on 04/13/2023 BP CONTROLLED (<130/80) due on 05/23/2023 ANNUAL PCP TEAM CHRONIC DISEASE VISIT due on 11/03/2023 DIABETES SCREEN due on 04/13/2025 DTAP,TDAP,TD(3 - Td or Tdap) due on 07/31/2029 HEPATITIS C SCREENING Completed SHINGRIX VACCINE Completed COVID-19 VACCINE Completed PNEUMOCOCCAL: 65+ Completed ASSESSMENT/PLAN: 1. Essential hypertension, benign - ICD9: 401.1, ICD10: I10 (primary diagnosis) - Controlled - Continue current medications - Recommend home blood pressure monitoring, to bring results to next visit - Encouraged sodium restriction, DASH or Mediterranean diet - Recommend regular aerobic exercise - Discussed need for and benefit of weight loss. BMI 41.84 kg/(m^2) - Reviewed risks of hypertension and principles of treatment - Follow up in 6 months for hypertension visit - COMP METABOLIC PANEL - ECHO - PERFLUTREN LIPID MICROSPHERES 1.1 MG/ML INJECTION IN NS 10 ML - SODIUM CHLORIDE 0.9 % (FLUSH) INJECTION SYRINGE 2. Hyperlipidemia LDL goal <100 - ICD9: 272.4, ICD10: E78.5 - Controlled - Continue current medications - Counseled on healthy diet and regular exercise - Discussed need for and benefit of weight loss. BMI 41.84 kg/(m^2) - Follow up in 6 months, sooner should any other issues arise. - COMP METABOLIC PANEL - LIPID PANEL BASIC 3. Prediabetes - ICD9: 790.29, ICD10: R73.03 - HGB A1C 4. Acquired hypothyroidism - ICD9: 244.9, ICD10: E03.9 - Instructed patient on importance of taking on an empty stomach either first thing in the morning or at bedtime. - continue current dose of Synthroid 0.125 mg - Follow up in 6 months - TSH BLD 5. Stage 3b chronic kidney disease (HCC) - ICD9: 585.3, ICD10: N18.32 - eGFR: Stable - Counseled on avoiding NSAIDs, adequate hydration - discussed using tylenol arthritis instead of aleve due to kidney function, verbalizes understanding - Counseled on low sodium diet - CBC - ECHO - PERFLUTREN LIPID MICROSPHERES 1.1 MG/ML INJECTION IN NS 10 ML - SODIUM CHLORIDE 0.9 % (FLUSH) INJECTION SYRINGE 6. Chronic bilateral low back pain with bilateral sciatica - ICD9: 724.2, 724.3, 338.29, ICD10: M54.42, M54.41, G89.29 Chronic low back pain - no red flag symptoms or exam findings - red flag symptoms discussed, verbalizes understanding - Ice for localized tenderness - Warm moist heat for 20 min three times a day - discussed using tylenol arthritis instead of aleve due to kidney function, verbalizes understanding - PT consult - Patient given instructions use of medications as ordered, intermittent rest, back care exercise program, weight loss, improved posture, proper lifting techniques, intermittent use of heat, and avoiding sleeping on a heating pad - CONSULT TO PHYSICAL THERAPY - follow-up if symptoms fail to improve, to ER with red flag symptoms 7. Obesity, Class III, 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) - ICD9: 278.01, ICD10: E66.01 Weight increasing - Behavioral intervention - Lengthy discussion in office today regarding diet and exercise. Discussed use of small plate to eat meals from, drink 1 glass of water 10-15 minutes prior to eating meal, drink 8 glasses of water daily, eat fresh fruit and vegetable during meal first then lean protein such as grilled/baked chicken breast or fish, limit carbohydrate intake (less pasta, breads, rice and snack foods) as well as limiting sugars (desserts etc). Important to count / track your calories and exercise as well. 8. Venous insufficiency (chronic) (peripheral) - ICD9: 459.81, ICD10: I87.2 - recommend he wear compression hose on in AM off at bedtime - low salt diet 9. Bilateral leg edema - ICD9: 782.3, ICD10: R60.0 - compression hose daily on in AM off at bedtime - low salt diet - ECHO - PERFLUTREN LIPID MICROSPHERES 1.1 MG/ML INJECTION IN NS 10 ML - SODIUM CHLORIDE 0.9 % (FLUSH) INJECTION SYRINGE 10. MARTIN (obstructive sleep apnea) - ICD9: 327.23, ICD10: G47.33 - continue CPAP nightly 11. ASHD (arteriosclerotic heart disease) - ICD9: 414.00, ICD10: I25.10 - continue current meds, check ECHO due to weight and leg swelling - ECHO - PERFLUTREN LIPID MICROSPHERES 1.1 MG/ML INJECTION IN NS 10 ML - SODIUM CHLORIDE 0.9 % (FLUSH) INJECTION SYRINGE Marilia Orozco APRN.RUBÉN Prescription instructions reviewed with patient as applicable. Patient advised if symptoms do not improve or if symptoms worsen sooner, to contact their primary care physician. Potential red flag symptoms discussed with the patient. Reviewed appropriate action plan to take if red flag symptoms occur. Patient agreeable to treatment plan I spent a total of 30 minutes on the date of the service which included preparing to see the patient, [id number] patient care, completing clinical documentation, obtaining and/or reviewing separately obtained history, performing a medically appropriate examination, counseling and educating the patient/family/caregiver, and ordering medications, tests, or procedures. documented in this encounter [facility] 08-09-2022 Note HNO ID: [id number] Author: Eunice Bruce LPN Service: ? Author Type: LICENSED NURSE Type: Progress Notes Filed: 08/09/2022 11:36 AM Note Text: Patient telephoned. After much encouragement agreed to a follow up in September. Appointment scheduled. Eunice Brcue LPN [facility] 08-08-2022 Note HNO ID: [id number] Author: Agnes Diaz MD Service: ? Author Type: Physician Type: Progress Notes Filed: 08/08/2022 5:09 PM Note Text: Recommend 6 month follow up from March, which would be around September for him. [facility] 08-08-2022 Note HNO ID: [id number] Author: Anusha Trevino MA Service: ? Author Type: Thermal Cutting Machine Operator Type: Progress Notes Filed: 08/08/2022 4:54 PM Note Text: POPULATION HEALTH NAVIGATION OUTREACH Action/FYI Patient doesn't want to follow up in 3 months per chart. He would like to come back in 6 months. Please advise. Thanks Anusha Trevino MA August 08, 2022 4:51 PM [facility] 08-03-2022 Note HNO ID: [id number] Author: Jennifer Lee Service: ? Author Type: ? Type: Progress Notes Filed: 08/03/2022 3:22 PM Note Text: Patient returned call and declined to schedule 6 month follow up visit. Please contact the patient to notify him if the visit is absolutely necessary. [facility] 08-03-2022 Note Patient Outreach (NE TNAV) FRAN LOPEZ ([id number]) 1945 M Date Time Provider Department 08/03/22 ANUSHA TREVINO During your visit today, we recorded the following information about you: Anusha Trevino MA 08/03/2022 1:43 PM Signed POPULATION HEALTH NAVIGATION OUTREACH Action/FYI [employer] Dx message sent E66.01 - Morbid (severe) obesity due to excess calories FOLLOW UP due in September Patient Identified by Name and : NO Outreach Outcome/Action Unable to reach patient: Left message Recondohart message sent Did you use a PCP flex slot to schedule this appointment? N/A Reason for Outreach Care Gap or Scheduling/Wellness visits Payer: Payor: MEDICARE / Plan: MEDICARE A AND B / Product Type: Medicare / Care Gap Reviewed:: Follow-up appointment Reminder: Reminder note to check Health Maintenance for items below Health Maintenance items due: ADVANCE DIRECTIVE DISCUSSION Never done DEPRESSION ASSESSMENT due on 05/01/2022 HEMOGLOBIN/HEMATOCRIT due on 07/12/2022 LDL CHOLESTEROL due on 07/12/2022 Navigation Signature: Anusha Trevino MA August 03, 2022 9:35 AM Jennifer Lee 08/03/2022 3:22 PM Signed Patient returned call and declined to schedule 6 month follow up visit. Please contact the patient to notify him if the visit is absolutely necessary. Anusha Trevino MA 08/08/2022 4:54 PM Signed POPULATION HEALTH NAVIGATION OUTREACH Action/FYI Patient doesn't want to follow up in 3 months per chart. He would like to come back in 6 months. Please advise. Thanks Anusha Trevino MA August 08, 2022 4:51 PM Agnes Diaz MD 08/08/2022 5:09 PM Signed Recommend 6 month follow up from March, which would be around September for him. Eunice Bruce LPN 08/09/2022 11:36 AM Signed Patient telephoned. After much encouragement agreed to a follow up in September. Appointment scheduled. Eunice Bruce LPN Allergies As of Date: 08/03/2022 Noted Allergy Reaction NORVASC (AMLODIPINE BESYLATE) 09/14/2016 7 - Swelling Comments: pedal edema VENOM-WASP 01/14/2005 7 - Swelling ZITHROMAX (AZITHROMYCIN) 01/14/2005 9 - Itching Date Reviewed: 05/23/2022 Reviewed by: Chiquita Rey - Fully Assessed Reason for Visit: Population Health Navigation Outreach [3910] Cmt: HCC GAP Prescriptions as of 08/09/2022 - amoxicillin (POLYMOX, AMOXIL) 500 mg capsule Take four capsules one hour before dental procedure. - hydroCHLOROthiazide (HYDRODIURIL, ESIDRIX) 25 mg tablet Take 1 tablet by mouth once daily. - levothyroxine (SYNTHROID) 125 mcg tablet Take 1 tablet by mouth once daily. TAKE 1 TABLET BY MOUTH ONCE DAILY. TAKE ON EMPTY STOMACH. FOR THYROID - CPAP AutoPAP [id number]. Mask per preference, tubing, filters, humidity. Lifetime Supplies. Dx: G47.33. Fax 30 day compliance report to [phone]. - lisinopril (ZESTRIL, PRINIVIL) 40 mg tablet Take 1 tablet by mouth once daily. - metoprolol succinate ER (TOPROL XL) 25 mg 24 hr tablet Take 1 tablet by mouth once daily. - atorvastatin (LIPITOR) 40 mg tablet Take 1 tablet by mouth once daily. - CPAP Please provide mask fitting. Pt with subjective and some degree objective leaks. Prefers nasal type mask. Thank you. DME = [facility] - acetaminophen 650 mg CR tablet Take 650 mg by mouth as needed. - aspirin, enteric coated (ASPIRIN, ENTERIC COATED) 81 mg EC tablet Take 81 mg by mouth once daily. - MULTIVITAMIN,TX-MINERALS ORAL TAB Take one(1) tablet daily. Problem List As Of Date 08/03/2022 Noted Resolved BENIGN HYPERTENSION [I10] 03/11/2005 Hypertrophy of prostate with urinary obstructio*06/01/2006 BLADDER NECK OBSTRUCTION [N32.0] 06/01/2006 Plantar fascial fibromatosis [M72.2] 11/02/2006 05/09/2014 Ingrowing nail [L60.0] 11/26/2007 05/09/2014 Hypothyroidism [E03.9] 03/25/2009 Open fracture of distal phalangeal tuft [DQW195*08/31/2011 05/09/2014 Internal derangement of right knee [M23.91] 05/07/2012 Intention tremor [G25.2] 05/07/2012 Benign prostatic hyperplasia with lower urinary*01/15/2013 Nocturia [R35.1] 01/15/2013 Right flank pain [R10.9] 02/04/2013 05/09/2014 Right kidney stone [N20.0] 02/04/2013 05/09/2014 Right renal mass [N28.89] 02/04/2013 Right lower lobe lung mass [R91.8] 02/04/2013 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] 02/14/2013 Diastasis recti [M62.08] 10/09/2013 Mass of pancreas (HCC) [K86.89] 05/12/2014 MARTIN (obstructive sleep apnea) [G47.33] 08/02/2016 ASHD (arteriosclerotic heart disease) [I25.10] 09/14/2016 Hyperlipidemia LDL goal <100 [E78.5] 09/14/2016 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] 06/08/2018 Right buttock pain [M79.18] 02/04/2019 Ankle edema, bilateral [M25.471, M25.472] 02/04/2019 Class 2 obesity due to excess calories with bod*05/13/2019 Pre-operative examination [Z01.818] 05/13/2019 Primary osteoarthritis of right hip [M16.11] 05/13/2019 Osteoarthritis of right hip [M16.11] (more content not included)... [facility] 08-03-2022 Note HNO ID: [id number] Author: Anusha Trevino MA Service: ? Author Type: Thermal Cutting Machine Operator Type: Progress Notes Filed: 08/03/2022 1:43 PM Note Text: POPULATION HEALTH NAVIGATION OUTREACH Action/FYI lv RUSBASEhart message sent E66.01 - Morbid (severe) obesity due to excess calories FOLLOW UP due in September Patient Identified by Name and : NO Outreach Outcome/Action Unable to reach patient: Left message MyChart message sent Did you use a PCP flex slot to schedule this appointment? N/A Reason for Outreach Care Gap or Scheduling/Wellness visits Payer: Payor: MEDICARE / Plan: MEDICARE A AND B / Product Type: Medicare / Care Gap Reviewed:: Follow-up appointment Reminder: Reminder note to check Health Maintenance for items below Health Maintenance items due: ADVANCE DIRECTIVE DISCUSSION Never done DEPRESSION ASSESSMENT due on 05/01/2022 HEMOGLOBIN/HEMATOCRIT due on 07/12/2022 LDL CHOLESTEROL due on 07/12/2022 Navigation Signature: Anusha Trevino MA August 03, 2022 9:35 AM [facility] 06-10-2022 Miscellaneous Notes E-script has been sent to [facility]. Uziel Perez PA-C Patient is getting dental work done on Monday morning (06/13/21). He needs a prescription for antibiotics. Please send to [facility]/pharmacy #[id number] - [place] [address] - [address] [facility]. / pharmacy on file. documented in this encounter [facility] 05-23-2022 History of Present illness Narrative Patient presents with: Sinus Problem: sinus pressure, drainage, sore throat x 4 days HPI: Feeling sick for 5 days. Worries because he has a bad cough with it. Positive symptoms: coughing, Sore throat, Sinus pressure, Nasal Congestion, Rhinorrhea, Post nasal drainage, Headache, right ear pain Negative symptoms: Fever, Chills, Nausea, Vomiting, Diarrhea, OTC: none. Had COVID illness June 2021. MEDICATIONS: Current Outpatient Medications Medication Sig hydroCHLOROthiazide (HYDRODIURIL, ESIDRIX) 25 mg tablet Take 1 tablet by mouth once daily. levothyroxine (SYNTHROID) 125 mcg tablet Take 1 tablet by mouth once daily. TAKE 1 TABLET BY MOUTH ONCE DAILY. TAKE ON EMPTY STOMACH. FOR THYROID CPAP AutoPAP [id number]. Mask per preference, tubing, filters, humidity. Lifetime Supplies. Dx: G47.33. Fax 30 day compliance report to [phone]. lisinopril (ZESTRIL, PRINIVIL) 40 mg tablet Take 1 tablet by mouth once daily. metoprolol succinate ER (TOPROL XL) 25 mg 24 hr tablet Take 1 tablet by mouth once daily. atorvastatin (LIPITOR) 40 mg tablet Take 1 tablet by mouth once daily. CPAP Please provide mask fitting. Pt with subjective and some degree objective leaks. Prefers nasal type mask. Thank you. DME = [facility] acetaminophen 650 mg CR tablet Take 650 mg by mouth as needed. aspirin, enteric coated (ASPIRIN, ENTERIC COATED) 81 mg EC tablet Take 81 mg by mouth once daily. MULTIVITAMIN,TX-MINERALS ORAL TAB Take one(1) tablet daily. No current facility-administered medications for this visit. ALLERGIES: ALLERGIES Allergen Reactions Norvasc [Amlodipine* Swelling pedal edema Venom-Wasp Swelling Zithromax [Azithrom* Itching VITALS: BP 122/76 Pulse 94 Temp 36.4 C (97.6 F) Resp 18 Wt 127.5 kg (281 lb) SpO2 97% BMI 40.32 kg/m PHYSICAL EXAM: GEN: mildly ill appearing HEENT: PERRL, EOMI, conjunctiva clear Ears: canals clear. Mild right hyperemia along the manubrium; otherwiseTMs without erythema, bulge, or effusion Sinuses: non-tender frontal sinus, non-tender maxillary sinuses Throat: moist mucous membranes, mild erythema, no exudate Neck: supple, no thyromegaly, no lymphadenopathy HEART: regular rate and rhythm, no murmurs LUNGS: clear to auscultation, no wheezes or crackles, no increased WOB; productive sounding cough ASSESSMENT/PLAN: 1. URI, acute - ICD9: 465.9, ICD10: J06.9 - suspect viral URI, differential includes COVID-19 and influenza. - Discussed supportive care treatment with home isolation, rest, cough medicine, lozenges, and analgesia. Defers info on nasal saline rinse. - Red flags to seek further treatment include chest pain, shortness of breath, and lethargy; in the ER if severe. - COVID WITH FLUA+B, ROUTINE - BENZONATATE 100 MG CAPSULE Ignacio Campos MD documented in this encounter [facility] 05-11-2022 Miscellaneous Notes Patient has been identified by name and date of : Yes, Provider Joe Date 05-11-21 Time 9:09 Patient phones for refill(s): hydroCHLOROthiazide Date of last office visit in primary care: 04-13-22 Labs-04/13/22 NOV-07/12/22 med filled 03/31/21 Last 2 Encounter Wt Readings: Date: Wt: 04/13/2022 128.4 kg (283 lb) 02/11/2022 124.7 kg (275 lb) Previous labs/tests for medication: Not applicable Please advise. Thank you. Lindsay Pang documented in this encounter [facility] 04-13-2022 History of Present illness Narrative Medicare Yearly Visit Medical B eligibilty date 2009 Date of last exam No AMW date available Patient here today for medicare wellness exam. Has been in good health without hospitalizations or ER visits. No falls in the last year. BP elevated on initial check today. Not checking at home. Denies HTN symptoms aside from chronic LE swelling. Wearing compression stockings daily as prescribed. Took medications yesterday evening as prescribed. MARTIN: controlled on nightly CPAP. Hypothyroidism: compliant with synthroid daily without hypo/hyperthyroidism symptoms. TSH in good range in June. Up to date on cancer screening and immunizations. 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 Chowdary in [place] Stage 3a chronic kidney disease (HCC) Venous insufficiency PAST SURGICAL HISTORY Procedure Laterality Date ARTHRP ACETBLR/PROX FEM PROSTC AGRFT/ALGRFT Right 06/03/2019 Hip replacement, total COLONOSCOPY FLX DX W/COLLJ SPEC WHEN PFRMD 04/21/11 Repeat 10 [id number] LASER GREENLIGHT prostate, [place] NEUROPLASTY &/TRANSPOS MEDIAN NRV CARPAL TUNNE Left 01/17/2020 Left carpal tunnel release NEUROPLASTY &/TRANSPOS MEDIAN NRV CARPAL TUNNE Right 03/04/2020 Right carpal tunnel release RPR UMBILICAL HRNA 5 YRS/> REDUCIBLE TONSILLECTOMY PRIMARY/SECONDARY <AGE 12 Tonsillectomy ALLERGIES: Norvasc [Amlodipine Besylate], Venom-Wasp, and Zithromax [Azithromycin] Medications reviewed: Yes FAMILY HISTORY Problem Relation Age of Onset Heart Mother other (Myocardial infarction) Mother 81 Headache Father MIGRAINES other (lung cancer) Father DECEACED AGE 86 YR LUNG CA No Known Problems Sister No Known Problems Sister Headache Sister MIGRAINES other (Myocardial infarction) Maternal Grandfather 64 other (Myocardial infarction) Maternal Uncle 74 SOCIAL HISTORY: Social History Tobacco Use Smoking status: Never Smokeless tobacco: Never Vaping Use Vaping Use: Never used Substance Use Topics Alcohol use: No Drug use: No Fran works out regularly a few times per week with swimming or swim class. He watches his diet for sodium, low fat and low cholesterol generally not very much. List of current specialists seen: Neurology-Wade Marquez OT/PT/Speech- Tabby Hancock End of Live Planning discussed including patients advanced directive wishes: Yes Patient does not have living will or DPOA. Would like forms for home. Is FULL CODE. I am willing to follow Fran's advanced directives. PHQ-2 / Depression screen He in the past two weeks denies having felt down, depressed, hopeless, or with little interest or pleasure in doing things. Functional Ability/Safety Screen 1. Was the patient's timed Up and Go test unsteady or longer than 30 seconds? No 2. Does the patient need help with the phone, transportation, shopping,preparing meals, housework, laundry, medications or managing money? No 3. Does your home have rugs in the hallway, lack of grab bars in the bathroom, lack of handrails on the stairs or have poor lighting? No Hearing Evaluation: normal PHYSICAL EXAM BP 144/81 Pulse 62 Resp 18 Ht 177.8 cm (5' 10 ) Wt 128.4 kg (283 lb) BMI 40.61 kg/m Alert and oriented X 3: YES Body mass index is 40.61 kg/m . Visual acuity: OD: 20/30 OS: 20/ 30 OU: 20/30 Wearing glasses General Appearance: Well appearing, alert, in no acute distress, well-hydrated, well nourished. Morbid obesity. Lungs: Lungs clear to auscultation. No wheezing, rhonchi, rales.. Heart: RRR without murmur, gallop, or rubs. No ectopy. Component Latest Ref Rng & Units 07/12/2021 12/01/2021 Protein, Total 6.3 - 8.0 g/dL 6.8 7.2 Albumin 3.9 - 4.9 g/dL 3.8 (L) 4.1 Calcium 8.5 - 10.2 mg/dL 9.1 9.5 Bilirubin, Total 0.2 - 1.3 mg/dL 0.5 0.7 Alkaline Phosphatase 38 - 113 U/L 72 80 AST 14 - 40 U/L 25 33 ALT 10 - 54 U/L 27 27 Glucose 74 - 99 mg/dL 143 (H) 114 (H) BUN 9 - 24 mg/dL 19 29 (H) Creatinine 0.73 - 1.22 mg/dL 1.40 (H) 1.71 (H) Sodium 136 - 144 mmol/L 137 139 Potassium 3.7 - 5.1 mmol/L 4.1 4.1 Chloride 97 - 105 mmol/L 104 105 CO2 22 - 30 mmol/L 25 21 (L) Anion Gap 9 - 18 mmol/L 8 (L) 13 eGFR >=60 mL/min/1.73m 52 (L) 41 (L) WBC 3.70 - 11.00 k/uL 7.36 RBC 4.20 - 6.00 m/uL 4.89 Hemoglobin 13.0 - 17.0 g/dL 15.4 Hematocrit 39.0 - 51.0 % 46.7 MCV 80.0 - 100.0 fL 95.5 MCH 26.0 - 34.0 pg 31.5 MCHC 30.5 - 36.0 g/dL 33.0 RDW-CV 11.5 - 15.0 % 13.5 Platelet Count 150 - 400 k/uL 217 MPV 9.0 - 12.7 fL 9.7 Absolute nRBC <0.01 k/uL <0.01 Total Cholesterol, Nonfasting <200 mg/dL 121 Triglycerides, Nonfasting <150 mg/dL 257 (H) HDL Cholesterol, Nonfasting >39 mg/dL 28 (L) LDL Cholesterol, Nonfasting <100 mg/dL 42 Non HDL Cholesterol, Nonfasting <130 mg/dL 93 VLDL Cholesterol, Nonfasting <30 mg/dL 51 (H) Total Chol/HDL Ratio, Nonfasting <5.10 mg/dL 4.32 LDL/HDL Ratio, Nonfasting <2.54 mg/dL 1.50 Hemoglobin A1C 4.3 - 5.6 % 6.1 (H) 5.8 (H) Estimated Average Glucose mg/dL 128 120 TSH 0.270 - 4.200 mIU/L 0.894 ASSESSMENT/PLAN: 1. Medicare annual wellness visit, subsequent - ICD9: V70.0, ICD10: Z00.00 (primary diagnosis) 76 year old male The following prevention plan was discussed during the office visit and provided to the patient: - Counseled on healthy diet and regular exercise - Discussed need for and benefit of weight loss. BMI 40.61 kg/(m^2) - Fall avoidance - Depression screening 2. Essential hypertension, benign - ICD9: 401.1, ICD10: I10 - good control - Continue current medication(s) - Encouraged dietary sodium restriction/DASH diet - Recommended regular aerobic exercise. - Reviewed risks of HTN and principles of treatment - Goal of BP <140/90 - COMP METABOLIC PANEL 3. Stage 3b chronic kidney disease (HCC) - ICD9: 585.3, ICD10: N18.32 - eGFR: Worsening - Counseled on avoiding regular use of NSAIDs, adequate hydration, potential risk of IV dye - Recommend maintaining A1c < 7% - Recommend maintaining blood pressure under 130/80 - Counseled on renal diet (low sodium/low potassium/low phosphorus) - Labs ordered: Renal function panel 4. Obesity, Class III, 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) - ICD9: 278.01, ICD10: E66.01 Weight increasing - Behavioral intervention 5. Acquired hypothyroidism - ICD9: 244.9, ICD10: E03.9 - Instructed patient on importance of taking on an empty stomach either first thing in the morning or at bedtime. - check TSH in 6 months - continue current dose of Synthroid 0.125 mg 6. Advance directive discussed with patient - ICD9: V65.49, ICD10: Z71.89 Given living will and DPOA forms for home. Will fill out and bring back a copy. 7. MARTIN (obstructive sleep apnea) - ICD9: 327.23, ICD10: G47.33 Controlled on nightly CPAP. MD Agnes Singh MD documented in this encounter [facility] 04-11-2022 History of Present illness Narrative POPULATION HEALTH NAVIGATION OUTREACH Action/FYI Spoke with Fran. Scheduled AMW for tomorrow 06-14-21 ANNUAL MEDICARE WELLNESS ADVANCE DIRECTIVE DISCUSSION Never done INFLUENZA(1) due on 12/30/2021 Pt identified by name and : YES, via phone Outreach Outcome/Action Spoke to patient or caregiver: Patient scheduled Did you use a PCP flex slot to schedule this appointment? N/A Reason for Outreach Care Gap or Scheduling/Wellness visits Payer: Payor: MEDICARE / Plan: MEDICARE A AND B / Product Type: Medicare / Care Gap Reviewed:: Annual Wellness visit Flu vaccine Reminder: Reminder note to check Health Maintenance for items below Health Maintenance items due: ADVANCE DIRECTIVE DISCUSSION Never done DEPRESSION ASSESSMENT Never done COVID-19 VACCINE(5 - Booster for Pfizer series) due on 11/17/2021 INFLUENZA(1) due on 12/30/2021 Navigation Signature: Anusha Trevino MA April 11, 2022 11:41 AM documented in this encounter [facility] 02-11-2022 History of Present illness Narrative ESTABLISHED PATIENT VISIT CHIEF COMPLAINT: MARTIN HISTORY OF PRESENT ILLNESS: Fran Lopez is a 76 year old male, BMI 39.46 kg/m2 with a PMH significant for and per last office visit note of 12/15/21: 1. MARTIN on CPAP - ICD9: 327.23, V46.8, ICD10: G47.33, Z99.89 Patient subjectively and objectively doing well on PAP therapy except for mask leaks as noted above. Will provide Rx to [facility]) in attempt to get patient mask fitting. Besides leaks, no complaints. Discussed with patient: the physiology of OSAS, medical conditions associated with OSAS (DM, HTN, CAD, Depression, Stroke, Headache...) and other treatment options (UPPP, Dental appliances...). Advised patient to avoid activities that could harm self or others when tired/sleepy, including driving and/or operating heavy machinery. AHI controlled and will not change PAP settings at this time, but in future if leak persists despite change in mask consider lowering upper end of pressure range with higher pressures possibly due to mask leaks. Encouraged weight loss, and continued compliance with other medications. No PAP data download for past 90 days shows 88/90 days used (>7 hours per night) with 95% pressure of 17.6 cmH2O. AHI 2.4. 95% leak is 12.6 LPM. Currently machine set at 5-20 cmH2O. Pt with no mask leaks. No mask discomfort. States he does not like it but still uses it. Only misses use of PAP if travels or significant sinus congestion. 5# weight gain since last visit. Pt with old device not allowing for 5G wifi downloads and needing new device. Pt not significantly more awake due to device but understands the multiple med conditions he has that may be helped with its use. Does sleep better during the night. REVIEW OF SYSTEMS GENERAL:No weight loss, malaise or fevers. HEENT:Negative for frequent or significant headaches, No changes in hearing or vision, no nose bleeds or other nasal problems RESPIRATORY: Negative for cough, wheezing or shortness of breath. CARDIOVASCULAR: Negative for chest pain, leg swelling or palpitations. LAB/IMAGING: Those performed since patient's last visit have been reviewed. WBC (k/uL) Date Value 07/12/2021 7.36 RBC (m/uL) Date Value 07/12/2021 4.89 Hemoglobin (g/dL) Date Value 07/12/2021 15.4 Hematocrit (%) Date Value 07/12/2021 46.7 MCV (fL) Date Value 07/12/2021 95.5 MCH (pg) Date Value 07/12/2021 31.5 MCHC (g/dL) Date Value 07/12/2021 33.0 RDW-CV (%) Date Value 07/12/2021 13.5 Platelet Count (k/uL) Date Value 07/12/2021 217 MPV (fL) Date Value 07/12/2021 9.7 Glucose (mg/dL) Date Value 12/01/2021 114 (H) BUN (mg/dL) Date Value 12/01/2021 29 (H) Creatinine (mg/dL) Date Value 12/01/2021 1.71 (H) Sodium (mmol/L) Date Value 12/01/2021 139 Potassium (mmol/L) Date Value 12/01/2021 4.1 Chloride (mmol/L) Date Value 12/01/2021 105 CO2 (mmol/L) Date Value 12/01/2021 21 (L) Protein, Total (g/dL) Date Value 12/01/2021 7.2 Albumin (g/dL) Date Value 12/01/2021 4.1 Calcium, Total (mg/dL) Date Value 12/01/2021 9.5 Alkaline Phosphatase (U/L) Date Value 12/01/2021 80 Bilirubin, Total (mg/dL) Date Value 12/01/2021 0.7 AST (U/L) Date Value 12/01/2021 33 ALT (U/L) Date Value 12/01/2021 27 Hep C Antibody IA (no units) Date Value 05/06/2016 Negative MEDICATIONS: lisinopril (ZESTRIL, PRINIVIL) 40 mg tablet Take 1 tablet by mouth once daily. metoprolol succinate ER (TOPROL XL) 25 mg 24 hr tablet Take 1 tablet by mouth once daily. atorvastatin (LIPITOR) 40 mg tablet Take 1 tablet by mouth once daily. hydroCHLOROthiazide (HYDRODIURIL, ESIDRIX) 25 mg tablet Take 1 tablet by mouth once daily. CPAP Please provide mask fitting. Pt with subjective and some degree objective leaks. Prefers nasal type mask. Thank you. DME = [facility] acetaminophen 650 mg CR tablet Take 650 mg by mouth as needed. aspirin, enteric coated (ASPIRIN, ENTERIC COATED) 81 mg EC tablet Take 81 mg by mouth once daily. CPAP AutoPAP [id number]. Mask per preference, tubing, filters, humidity. [employer] Supplies. Dx: G47.33. Fax 30 day compliance report to [phone]. MULTIVITAMIN,TX-MINERALS ORAL TAB Take one(1) tablet daily. levothyroxine (SYNTHROID) 125 mcg tablet Take 1 tablet by mouth once daily. TAKE 1 TABLET BY MOUTH ONCE DAILY. TAKE ON EMPTY STOMACH. 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/08/2018 R hip, S/P SUSAN ASHD (arteriosclerotic heart disease) 09/14/2016 Bilateral carpal tunnel syndrome Bilateral lower extremity edema 2/2 venous insufficiency BPH (benign prostatic hyperplasia) Class 2 obesity due to excess calories with body mass index (BMI) of 38.0 to 38.9 in adult Diverticulosis of colon (without mention of hemorrhage) Essential hypertension, benign Hyperlipidemia LDL goal <100 09/14/2016 Hypothyroidism Intention tremor 05/07/2012 Internal derangement of right knee 05/07/2012 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 Chowdary in [place] Stage 3a chronic kidney disease (HCC) Venous insufficiency FAMILY HISTORY Problem Relation Age of Onset Heart Mother other (Myocardial infarction) Mother 81 Headache Father MIGRAINES other (lung cancer) Father DECEACED AGE 86 YR LUNG CA No Known Problems Sister No Known Problems Sister Headache Sister MIGRAINES other (Myocardial infarction) Maternal Grandfather 64 other (Myocardial infarction) Maternal Uncle 74 SOCIAL HISTORY Social History Tobacco Use Smoking status: Never Smokeless tobacco: Never Vaping Use Vaping Use: Never used Substance Use Topics Alcohol use: No Drug use: No PHYSICAL EXAMINATION BP 120/73 Pulse 78 Temp 36.2 C (97.1 F) (Temporal) Resp 18 Wt 124.7 kg (275 lb) SpO2 97% BMI 39.46 kg/m GENERAL EXAM: General appearance: NAD, pleasant. HEENT: NC/AT, nasal congestion absent, no oral lesions, membranes moist. [place] IV. NECK: No masses, supple. Lungs: CTA bilaterally. No wheezes present. CV: RRR nl S1, S2. Extr: No cyanosis, clubbing or edema. NEUROLOGICAL EXAM: General: Awake, alert, oriented x3 (person,place,time), speech fluent, no dysarthria; comprehension, naming, repetition intact. CN: PERRL, EOMI and without nystagmus, VFF to confrontation, facial sensation and strength are normal and symmetric, hearing is intact to finger rub bilaterally, palate and tongue movements are intact and symmetric. SCM and trapezius strength normal. Motor: Strength 5/5 x4 exts. Gait: Stable with normal stride and arm swing. Assessment and Plan: ASSESSMENT/PLAN: 1. MARTIN on CPAP - ICD9: 327.23, V46.8, ICD10: G47.33, Z99.89 Patient doing well on PAP therapy. Remains compliant from both subjective and objective standpoints. Reminded to clean and replace PAP equipment regularly. Will order new PAP device with patient's being outdated and appears due for new equipment. Rx sent to [facility]. Advised pt not to drive or operate heavy machinery when sleepy. Follow up in 1 year. aWde Marquez MD I spent a total of 22 minutes on the date of the service which included preparing to see the patient, [id number] patient care, completing clinical documentation, obtaining and/or reviewing separately obtained history, performing a medically appropriate examination, counseling and educating the patient/family/caregiver, ordering medications, tests, or procedures, independently interpreting results (not separately reported), and communicating results to the patient/family/caregiver. documented in this encounter [facility] 02-03-2022 History of Present illness Narrative Episode Visit Count: 14 Therapist That Will Accept/Oversee The Plan Of Care: Kvng Forman PT Start of Care Date: 12/08/21 Onset Date: 12/09/19 Plan of Care Certification Date: 01/06/22 Next Certification Due Date: 02/03/22 Patient Identified by Name and Date of : Yes REHABILITATION AND SPORTS THERAPY PHYSICAL THERAPY DISCONTINUANCE OF CARE PLAN OF CARE UPDATE: Assessment: Fran Lopez is discontinued from Physical Therapy services due to goal achievement and maximal benefit. and Patient/Clinician mutual decision to discontinue current plan of care. Patient was seen for 14 visits from Start of Care Date: 12/08/21 to 02/03/2022 and treatment included: Therapeutic exercise, Manual therapy, Therapeutic activities, Self-skilled nursing management, Patient/Family/Caregiver Education, and Body mechanics training. Updated: 01/06/22 and 02/03/22 Goals for Episode of Care: created on 12/08/21 through 01/19/22 Patient will decrease pain to 0/10 at rest and with functional activities to allow patient to improve standing tolerance for ADLs. - Mostly MET Restore pain-free lumbar ROM to WFL to allow for improved bending tolerance - Partially Met Stand / Walk without limitations, without pain/symptoms. - Partially Met Patient will increase strength of core and postural muscles to WFL to allow for improve ability to complete ADLs, especially prolonged standing and walking. - Partially Met, Patient Goals: decrease pain and increase standing and walking tolerance. - MET SUBJECTIVE: Patient Reason for Visit: Pt reports that overall he is definitely better compared to his status at evaluation. He reports continued pain and stiffness in the morning and when he gets up in the middle of the night to use the restroom. He reports that these symptoms are easily managed each morning with tylenol. He reports that the therex in previous sessions caused soreness and fatigue but no increase in pain. He reports compliance with HEP 1-2x day. He denies any pain to start today. He reports that standing tolerance, bending and walking tolerance are better since evaluation. He reported that his ability with bending is guarded but better. He reports intermittent improvements with walking in the middle of the night and at times pain-free. He feels that the traction helps but has not made a significant difference recently. Pain: Pain Pain Level: 0 Description: (no pain to start today) Frequency: Intermittent Post Treatment Pain Post Treatment Pain Level: No Change PROMIS Scales Higher is Better 08/02/2016 11/17/2019 GH Physical - Score - 50.8 GH Physical - Percentile - 53 % GH Mental - Score - 53.3 GH Mental - Percentile 96 % 63 % T-scores: mean of general population = 50. 5 points is clinically meaningfully difference Percentiles provide an indication of how the patient's score ranks in relation to the general population. Higher percentile rankings indicate better function/quality of life. 50th percentile is the average of the general population and indicates half of respondents had a worse score. T-scores: mean of general population = 50. 5 points is clinically meaningfully difference Percentiles provide an indication of how the patient's score ranks in relation to the general population. Higher percentile rankings indicate better function/quality of life. 50th percentile is the average of the general population and indicates half of respondents had a worse score. OBJECTIVE MEASURES WITH LEVEL OF FUNCTION: Lumbar Spine AROM Lumbar Flexion: Moderate limitation Lumbar Extension: Major limitation Lumbar R Side-Bend: Normal Lumbar L Side-Bend: Normal Lumbar R Rotation: Normal Lumbar L Rotation: Normal LE Strength Trunk Strength: improving but not nearly to maximum potential yet TREATMENT: Therapeutic Exercise: 1: SciFit StepOne seat #16 x5 minutes resistance number 5 (Pt provided an update on his condition and subjective collected.) 2: supine B SKTC 2x30 seconds 3: supine DKTC 2x30 seconds with towel 4: supine LTR 2x10 5: *stirring the pot options for at home were explained and blue t-band provided 6: *standing palloff press with blue t-band issued for HEP 7: *supine posterior pelvic tilts with B alt marching 2x10 8: HEP was thoroughly reviewed and continuation encouraged to tolerance. He was educated on how and when to progress strengthening HEP. Skilled Intervention: Patient was educated in proper exercise technique and purpose for exercises. Reviewed and educated patient on additions/changes for home exercise program as above (*). Skilled judgment was provided in selection of appropriate interventions. Provided written instruction for home exercise program to facilitate proper performance and compliance. Correct performance of therapeutic exercises was facilitated with verbal, visual, and tactile cuing. Patient education as noted. Manual Therapy: Manual Traction: Manual lumbar traction with legs elevated on leg rest with pull to tolerance ( gentle) x10 minutes. Skilled Intervention: Manual skills to improve joint mobility, ROM, and decrease pain. Utilized anatomy knowledge of the therapist, and assessment of patient's response to intervention. Billing Therapeutic Exercise Treatment Minutes: 35 Manual TherapyTreatment Minutes: 10 Total Treatment Time Minutes (timed/untimed): 45 Kvng Forman PT documented in this encounter [facility] 01-31-2022 History of Present illness Narrative Episode Visit Count: 13 Therapist That Will Accept/Oversee The Plan Of Care: Kvng Forman PT Start of Care Date: 12/08/21 Onset Date: 12/09/19 Plan of Care Certification Date: 01/06/22 Next Certification Due Date: 02/03/22 Patient Identified by Name and Date of : Yes REHABILITATION AND SPORTS THERAPY PHYSICAL THERAPY TREATMENT NOTE ASSESSMENT: Fran Tarah Lopez tolerated the session with decreased symptoms. He demonstrated difficulty with lifting mechanics . The patient will continue to benefit from ongoing skilled physical therapy to progress toward set goals. PLAN FOR NEXT VISIT: Continue with therex with flexion directional preference with emphasis on core stabilization. Continue gentle manual belt traction. Traction should be light amount of force. SUBJECTIVE: Patient Reason for Visit: Pt reports waking up with a stiff low back and shooting pain down BLE (8/10).Pt took Tylenol and pain is getting better. Pt states having increased pain and difficulty with yard work and bending and lifting. Pain: Pain Pain Level: 2 Pain Location: Leg - Left;Leg - Right;Low Back/Lumbar Spine - Left;Low Back/Lumbar Spine - Right Frequency: Intermittent Post Treatment Pain Post Treatment Pain Level: 0 Post Treatment Pain Location: Leg - Left;Leg - Right;Low Back/Lumbar Spine - Left;Low Back/Lumbar Spine - Right Post Treatment Symptoms: Pt had no radicular symtoms after traction today. OBJECTIVE MEASURES WITH LEVEL OF FUNCTION: TREATMENT: Therapeutic Exercise: 1: Lánzanos[employer] StepOne seat #16 x5 minutes resistance number 5 (Pt provided an update on his condition and subjective collected.) 2: supine B SKTC 2x30 seconds 3: supine DKTC 2x30 seconds with towel 4: supine LTR 2x10 5: stirring the pot standing at [facility] 1 plate plus 2 round 2x10 CW and 2x10 CCW facing both lateral directions 6: standing at [facility], palloff press with 1 plate and 2 round 2x12 facing both lateral directions. 7: seated at [facility] with maria del rosario overhead 2 plates pull downs keeping elbows extended 2x10 Skilled Intervention: Patient was educated in proper exercise technique and purpose for exercises. Skilled judgment was provided in selection of appropriate interventions. Correct performance of therapeutic exercises was facilitated with verbal cuing. Manual Therapy: Manual Traction: Manual lumbar traction with legs elevated on leg rest with pull to tolerance ( gentle) x10 minutes. Skilled Intervention: Manual skills to improve joint mobility, ROM, and decrease pain. Utilized anatomy knowledge of the therapist, and assessment of patient's response to intervention. Therapeutic Activity: 1: Lifting with good body mechanics 2x5 lifitng ball from chair 2: *Education on proper lifting and body mechanics Skilled Intervention: Proper patient guarding to prevent falls/increase patient safety with independence to assist patient while performing bending and lifting technique. Billing Therapeutic Exercise Treatment Minutes: 30 Manual TherapyTreatment Minutes: 10 Therapeutic Activity Treatment Minutes: 5 Total Treatment Time Minutes (timed/untimed): 45 RUBENS Allred PT documented in this encounter [facility] 01-24-2022 History of Present illness Narrative Episode Visit Count: 12 Therapist That Will Accept/Oversee The Plan Of Care: Kvng Forman PT Start of Care Date: 12/08/21 Onset Date: 12/09/19 Plan of Care Certification Date: 01/06/22 Next Certification Due Date: 02/03/22 Patient Identified by Name and Date of : Yes REHABILITATION AND SPORTS THERAPY PHYSICAL THERAPY TREATMENT NOTE ASSESSMENT: Fran Lopez tolerated the session with decreased symptoms. He demonstrated improvements in pain and exercise tolerance. The patient will continue to benefit from ongoing skilled physical therapy to progress toward set goals. PLAN FOR NEXT VISIT: Continue with therex with flexion directional preference with emphasis on core stabilization. Continue gentle manual belt traction. Traction should be light amount of force. SUBJECTIVE: Patient Reason for Visit: Pt reports that overall he is feeling the same as last visit. He reports compliance with HEP 2x day. He reports doing HEP first thing in the morning before he gets out of bed. He reports that he did not take the tylenol this morning that he usually takes. He reports that the manual traction helps and provides relief for the rest of the day. Pain: Pain Pain Level: 5 Pain Location: Leg - Right;Leg - Left Description: ( electric ) Frequency: Intermittent Post Treatment Pain Post Treatment Pain Level: 0 Post Treatment Pain Location: Leg - Right;Leg - Left Post Treatment Pain Description: (no pain after) Post Treatment Symptoms: After traction today, pt reported feeling significantly better with pain abolished (0/10). OBJECTIVE MEASURES WITH LEVEL OF FUNCTION: TREATMENT: Therapeutic Exercise: 1: August StepOne seat #16 x5 minutes resistance number 5 (Pt provided an update on his condition and subjective collected.) 2: supine B SKTC 2x30 seconds 3: supine DKTC 2x30 seconds with towel 4: supine LTR 2x10 5: stirring the pot standing at [facility] 1 plate plus 2 round 2x10 CW and 2x10 CCW facing both lateral directions 6: standing at [facility], palloff press with 1 plate and 2 round 2x12 facing both lateral directions. 7: seated at [facility] with maria del rosario overhead 2 plates pull downs keeping elbows extended 2x10 Skilled Intervention: Patient was educated in proper exercise technique and purpose for exercises. Skilled judgment was provided in selection of appropriate interventions. Correct performance of therapeutic exercises was facilitated with verbal, visual, and tactile cuing. Patient education as noted. Manual Therapy: Manual Traction: Manual lumbar traction with legs elevated on leg rest with pull to tolerance ( gentle) x10 minutes. Skilled Intervention: Manual skills to improve joint mobility, ROM, and decrease pain. Utilized anatomy knowledge of the therapist, and assessment of patient's response to intervention. Billing Therapeutic Exercise Treatment Minutes: 35 Manual TherapyTreatment Minutes: 10 Total Treatment Time Minutes (timed/untimed): 45 Kvng Forman PT documented in this encounter [facility] 01-20-2022 History of Present illness Narrative Episode Visit Count: 11 Therapist That Will Accept/Oversee The Plan Of Care: Kvng Forman PT Start of Care Date: 12/08/21 Onset Date: 12/09/19 Plan of Care Certification Date: 01/06/22 Next Certification Due Date: 02/03/22 Patient Identified by Name and Date of : Yes REHABILITATION AND SPORTS THERAPY PHYSICAL THERAPY TREATMENT NOTE ASSESSMENT: Fran Lopez tolerated the session with decreased symptoms. He demonstrated improvements in endurance of core stabilization/strengthening exercises. The patient will continue to benefit from ongoing skilled physical therapy to progress toward set goals. PLAN FOR NEXT VISIT: Continue with neutral spine strengthening SUBJECTIVE: Patient Reason for Visit: Pt states yesterday was a bad day for pain, was a 7-8/10. Pt states feeling better today but did take a Tylenol prior to coming to therapy. Pain: Pain Pain Level: 1 Pain Location: Low Back/Lumbar Spine - Right;Low Back/Lumbar Spine - Left;Buttocks - Right;Buttocks - Left;Leg - Right;Leg - Left Frequency: Intermittent Post Treatment Pain Post Treatment Pain Level: 0 Post Treatment Pain Location: Low Back/Lumbar Spine - Right;Low Back/Lumbar Spine - Left;Buttocks - Right;Buttocks - Left;Leg - Right;Leg - Left OBJECTIVE MEASURES WITH LEVEL OF FUNCTION: Pt able to tolerate increased reps with stir the pot and pallofs wihtout increase in pain in low back. TREATMENT: Therapeutic Exercise: 1: SciFit StepOne seat #16 x5 minutes resistance number 5 (Pt provided an update on his condition and subjective collected.) 2: supine B SKTC 2x30 seconds 3: supine DKTC 2x30 seconds with towel 4: supine LTR 2x10 5: stirring the pot standing at [facility] 1 plate plus 2 round 2x10 CW and 2x10 CCW facing both lateral directions 6: standing at [facility], palloff press with 1 plate and 2 round 2x12 facing both lateral directions. 7: seated at [facility] with maria del rosario overhead 2 plates pull downs keeping elbows extended 2x10 Skilled Intervention: Patient was educated in proper exercise technique and purpose for exercises. Skilled judgment was provided in selection of appropriate interventions. Correct performance of therapeutic exercises was facilitated with verbal cuing. Manual Therapy: Manual Traction: Manual lumbar traction with legs elevated on sphysioball with pull to tolerance ( gentle) x10 minutes. Skilled Intervention: Manual skills to improve joint mobility, ROM, and decrease pain. Utilized anatomy knowledge of the therapist, and assessment of patient's response to intervention. Billing Therapeutic Exercise Treatment Minutes: 33 Manual TherapyTreatment Minutes: 10 Total Treatment Time Minutes (timed/untimed): 43 RUBENS Allred PT documented in this encounter [facility] 01-17-2022 History of Present illness Narrative Episode Visit Count: 10 Therapist That Will Accept/Oversee The Plan Of Care: Kvng Forman PT Start of Care Date: 12/08/21 Onset Date: 12/09/19 Plan of Care Certification Date: 01/06/22 Next Certification Due Date: 02/03/22 Patient Identified by Name and Date of : Yes REHABILITATION AND SPORTS THERAPY PHYSICAL THERAPY TREATMENT NOTE ASSESSMENT: Fran Lopez tolerated the session with decreased symptoms. He demonstrated improvements in pain. The patient will continue to benefit from ongoing skilled physical therapy to progress toward set goals. PLAN FOR NEXT VISIT: Continue with therex with flexion directional preference with emphasis on core stabilization. Continue gentle manual belt traction prn as well as balance training prn. Traction must be light amount of force. SUBJECTIVE: Patient Reason for Visit: Pt states going ot a football game and doing a lot of walking and stair climbing and it aggrevated his low back. Pt states his balance trouble is due to swelling in his BLE into his feet. Pain: Pain Pain Level: 2 Pain Location: Low Back/Lumbar Spine - Right;Low Back/Lumbar Spine - Left;Buttocks - Right;Buttocks - Left;Leg - Right;Leg - Left Frequency: Intermittent Post Treatment Pain Post Treatment Pain Level: 0 Post Treatment Pain Location: Low Back/Lumbar Spine - Right;Low Back/Lumbar Spine - Left;Buttocks - Right;Buttocks - Left;Leg - Right;Leg - Left OBJECTIVE MEASURES WITH LEVEL OF FUNCTION: Traction and flexion bias relieves symptoms today TREATMENT: Therapeutic Exercise: 1: SciFit StepOne seat #16 x5 minutes resistance number 5 (Pt provided an update on his condition and subjective collected.) 2: supine B SKTC 2x30 seconds 3: supine DKTC 2x30 seconds with towel 4: supine LTR 2x10 5: stirring the pot standing at [facility] 1 plate plus 2 round x10 CW and x10 CCW facing both lateral directions 6: standing at [facility], palloff press with 1 plate and 2 round 2x10 facing both lateral directions. 7: seated at [facility] with maria del rosario overhead 2 plates pull downs keeping elbows extended 2x10 Skilled Intervention: Patient was educated in proper exercise technique and purpose for exercises. Skilled judgment was provided in selection of appropriate interventions. Correct performance of therapeutic exercises was facilitated with verbal cuing. Manual Therapy: Manual Traction: Manual lumbar traction with legs elevated on sphysioball with pull to tolerance ( gentle) x10 minutes. Skilled Intervention: Manual skills to improve joint mobility, ROM, and decrease pain. Utilized anatomy knowledge of the therapist, and assessment of patient's response to intervention. Billing Therapeutic Exercise Treatment Minutes: 32 Manual TherapyTreatment Minutes: 10 Total Treatment Time Minutes (timed/untimed): 42 RUBENS Allred PT documented in this encounter [facility] 01-12-2022 History of Present illness Narrative Episode Visit Count: 9 Therapist That Will Accept/Oversee The Plan Of Care: Kvng Forman PT Start of Care Date: 12/08/21 Onset Date: 12/09/19 Plan of Care Certification Date: 01/06/22 Next Certification Due Date: 02/03/22 Patient Identified by Name and Date of : Yes REHABILITATION AND SPORTS THERAPY PHYSICAL THERAPY TREATMENT NOTE ASSESSMENT: Fran Lopez tolerated the session with fatigue and expected muscle soreness. He demonstrated improvements in nighttime mobility, bed transfers, exercise tolerance and pain in general. The patient will continue to benefit from ongoing skilled physical therapy to progress toward set goals. PLAN FOR NEXT VISIT: Continue with therex with flexion directional preference with emphasis on core stabilization. Continue gentle manual belt traction prn as well as balance training prn. Traction must be light amount of force. SUBJECTIVE: Patient Reason for Visit: Pt reports that overall he is still doing very well and is possibly slightly better than last session. He specifically reports less pain with getting up in the middle of the night and less pain getting out of bed in the morning. He reports compliance with HEP. He denies any pain to start today. Pain: Pain Pain Level: 0 Pain Location: Low Back/Lumbar Spine - Right;Low Back/Lumbar Spine - Left;Buttocks - Right;Buttocks - Left;Leg - Right;Leg - Left Description: (no pain to start today) Frequency: Intermittent Post Treatment Pain Post Treatment Pain Level: No Change Post Treatment Pain Location: Low Back/Lumbar Spine - Right;Low Back/Lumbar Spine - Left;Buttocks - Right;Buttocks - Left;Leg - Right;Leg - Left Post Treatment Pain Description: ( discomfort but no increase in pain) Post Treatment Symptoms: After session pt denied any increase in pain but he did report discomfort in low back that he attributed to the new therex. OBJECTIVE MEASURES WITH LEVEL OF FUNCTION: TREATMENT: Therapeutic Exercise: 1: LánzanosFit StepOne seat #16 x5 minutes resistance number 5 (Pt provided an update on his condition and subjective collected.) 2: supine B SKTC 2x30 seconds 3: supine DKTC 2x30 seconds with towel 4: supine LTR 2x10 5: stirring the pot standing at [facility] 1 plate plus 2 round x10 CW and x10 CCW facing both lateral directions 6: standing at [facility], palloff press with 1 plate and 2 round 2x10 facing both lateral directions. 7: seated at [facility] with maria del rosario overhead 2 plates pull downs keeping elbows extended 2x10 Skilled Intervention: Patient was educated in proper exercise technique and purpose for exercises. Skilled judgment was provided in selection of appropriate interventions. Correct performance of therapeutic exercises was facilitated with verbal, visual, and tactile cuing. Patient education as noted. Manual Therapy: Manual Traction: Manual lumbar traction with legs elevated on stool with pull to tolerance ( gentle) x15 minutes. Skilled Intervention: Manual skills to improve joint mobility, ROM, and decrease pain. Utilized anatomy knowledge of the therapist, and assessment of patient's response to intervention. Billing Therapeutic Exercise Treatment Minutes: 30 Manual TherapyTreatment Minutes: 15 Total Treatment Time Minutes (timed/untimed): 45 Kvng Forman PT documented in this encounter [facility] 01-10-2022 History of Present illness Narrative Episode Visit Count: 8 Therapist That Will Oversee The Plan Of Care: Kvng Forman PT Start of Care Date: 12/08/21 Onset Date: 12/09/19 Plan of Care Certification Date: 01/06/22 Next Certification Due Date: 02/03/22 Patient Identified by Name and Date of : Yes REHABILITATION AND SPORTS THERAPY PHYSICAL THERAPY TREATMENT NOTE ASSESSMENT: Fran Lopez tolerated the session with fatigue, decreased symptoms, expected muscle soreness, and no issues. He demonstrated improvements in pain and exercise tolerance. The patient will continue to benefit from ongoing skilled physical therapy to progress toward set goals. PLAN FOR NEXT VISIT: Continue with therex with flexion directional preference with emphasis on core stabilization. Continue gentle manual belt traction prn as well as balance training prn. SUBJECTIVE: Patient Reason for Visit: Pt reports that overall he is doing well and even better than last visit. He reports that pain is decreased since 01/06/22. He reports compliance with HEP and even started doing HEP before getting out of bed and this has helped with the amount of pain he has getting out of bed. He denies any pain to start today. Pain: Pain Pain Level: 0 Pain Location: Low Back/Lumbar Spine - Right;Low Back/Lumbar Spine - Left;Buttocks - Right;Buttocks - Left;Leg - Right;Leg - Left Description: (no pain to start today) Frequency: Intermittent Post Treatment Pain Post Treatment Pain Level: No Change OBJECTIVE MEASURES WITH LEVEL OF FUNCTION: TREATMENT: Therapeutic Exercise: 1: SciFit StepOne seat #16 x5 minutes handles at #5 (Subjective taken and education to do exercises to help alleviate pain, especially before getting out of bed.) 2: supine B SKTC x30 seconds (Pt advised to do this prior to getting out of bed) 3: supine DKTC x30 seconds with towel (Pt advised to do this prior to getting out of bed) 4: supine LTR 2x10 (Pt advised to do this prior to getting out of bed) 5: supine posterior pelvic tilt with bent knee fall out 2x10 B 7: supine bridging 2x10 in small range 8: crunches in very small range 2x10 11: Hooklying PPT with alt march 3x5 BLE Skilled Intervention: Patient was educated in proper exercise technique and purpose for exercises. Skilled judgment was provided in selection of appropriate interventions. Correct performance of therapeutic exercises was facilitated with verbal, visual, and tactile cuing. Patient education as noted. Manual Therapy: Manual Traction: Manual lumbar traction with legs elevated on stool with pull to tolerance ( gentle) x 10 minutes. Skilled Intervention: Manual skills to improve joint mobility, ROM, and decrease pain. Utilized anatomy knowledge of the therapist, and assessment of patient's response to intervention. Billing Therapeutic Exercise Treatment Minutes: 35 Manual TherapyTreatment Minutes: 10 Total Treatment Time Minutes (timed/untimed): 45 Kvng Forman PT documented in this encounter [facility] 01-04-2022 History of Present illness Narrative Episode Visit Count: 6 Therapist That Will Oversee The Plan Of Care: Kvng Forman PT Start of Care Date: 12/08/21 Onset Date: 12/09/19 Plan of Care Certification Date: 12/08/21 Next Certification Due Date: 01/19/22 Patient Identified by Name and Date of : Yes REHABILITATION AND SPORTS THERAPY PHYSICAL THERAPY TREATMENT NOTE ASSESSMENT: Fran Lopez tolerated the session with decreased symptoms. He demonstrated improvements in pain. The patient will continue to benefit from ongoing skilled physical therapy to progress toward set goals. PLAN FOR NEXT VISIT: Add hooklying PPT with walkouts. SUBJECTIVE: Patient Reason for Visit: Pt states he didn't complete as many exercises as he should have over the weekend and had increased pain. Pt states his pain is better today. Pain: Pain Pain Level: 3 Pain Location: Leg - Right;Leg - Left;Low Back/Lumbar Spine - Left;Low Back/Lumbar Spine - Right Description: Stabbing Frequency: Intermittent Post Treatment Pain Post Treatment Pain Level: 0 Post Treatment Pain Location: Leg - Left;Leg - Right;Low Back/Lumbar Spine - Left;Low Back/Lumbar Spine - Right OBJECTIVE MEASURES WITH LEVEL OF FUNCTION: Pt able to complete seated iso abs with alternating legs combined with alternating arms with good posture. TREATMENT: Therapeutic Exercise: 1: SciFit StepOne seat #16 x5 minutes handles at #5 (Subjective taken and education to do exercises to help alleviate pain.) 2: supine B SKTC 3x30 seconds 3: supine DKTC 3x30 seconds with towel 4: supine LTR 2x10 5: seated isometric abdominal exercise 2 second holds x10 (education to count out loud for proper breathing) 6: Seated isometric abdominals with marching 2 x 5 each LE. 7: supine bridging 2x10 in small range (Issued for HEP) 8: crunches in very small range 3x10 9: purple t-band perturbations sitting at edge of mat table 3x15 R, L and forward 10: seated scapular retraction at edge of mat table 3x15 emphasis on posture and purple t-band (Pt demonstrated good form today.) 11: Hooklying PPT with alt march x5 BLE 12: Seated iso abs alternating arms with alternating legs 2x5 B Skilled Intervention: Patient was educated in proper exercise technique and purpose for exercises. Skilled judgment was provided in selection of appropriate interventions. Correct performance of therapeutic exercises was facilitated with verbal cuing. Manual Therapy: Manual Traction: Manual lumbar traction with legs elevated on stool with pull to tolerance ( gentle) x 10 minutes. Skilled Intervention: Manual skills to improve joint mobility, ROM, and decrease pain. Utilized anatomy knowledge of the therapist, and assessment of patient's response to intervention. Billing Therapeutic Exercise Treatment Minutes: 35 Manual TherapyTreatment Minutes: 10 Total Treatment Time Minutes (timed/untimed): 45 RUBENS Allred PT documented in this encounter [facility] 12-29-2021 History of Present illness Narrative Episode Visit Count: 5 Therapist That Will Oversee The Plan Of Care: Kvng Forman PT Start of Care Date: 12/08/21 Onset Date: 12/09/19 Plan of Care Certification Date: 12/08/21 Next Certification Due Date: 01/19/22 Patient Identified by Name and Date of : Yes REHABILITATION AND SPORTS THERAPY PHYSICAL THERAPY TREATMENT NOTE ASSESSMENT: Fran Lopez tolerated the session with decreased symptoms. He demonstrated improvements in posture and form with seated theraband scapular squeezes.The patient will continue to benefit from ongoing skilled physical therapy to progress toward set goals. PLAN FOR NEXT VISIT: Add seated transverse abdominis alternating marching with alternating arm lifts. SUBJECTIVE: Patient Reason for Visit: Patient reports his low back and butocks feel good today once taking Tylenol this morning at 6:50. Patient still had signifcant pain upon intailly waking up. Patient states bilateral lateral lower legs are aching today. Pt reports completing HEP twice daily. Pain: Pain Pain Level: 3 Pain Location: Leg - Left;Leg - Right Description: Aching Frequency: Intermittent Post Treatment Pain Post Treatment Pain Level: 0 Post Treatment Pain Location: Leg - Left;Leg - Right OBJECTIVE MEASURES WITH LEVEL OF FUNCTION: TREATMENT: Therapeutic Exercise: 1: SciFit StepOne seat #16 x5 minutes handles at #5 (Subjective taken and education to do exercises first thing in the morning when he gets up.) 2: supine B SKTC 3x30 seconds 3: supine DKTC 3x30 seconds with towel 4: supine LTR 2x10 5: seated isometric abdominal exercise 2 second holds x10 (education to count out loud for proper breathing) 6: Seated isometric abdominals with marching 2 x 5 each LE. 7: supine bridging 2x10 in small range (Issued for HEP) 8: crunches in very small range 2x12 (Issued for HEP.) 9: purple t-band perturbations sitting at edge of mat table 3x15 R, L and forward 10: seated scapular retraction at edge of mat table 3x15 emphasis on posture and purple t-band (Pt demonstrated good form today.) Skilled Intervention: Patient was educated in proper exercise technique and purpose for exercises. Reviewed and educated patient on additions/changes for home exercise program as above (*). Skilled judgment was provided in selection of appropriate interventions. Provided written instruction for home exercise program to facilitate proper performance and compliance. Correct performance of therapeutic exercises was facilitated with verbal cuing. Manual Therapy: Manual Traction: Manual lumbar traction with legs elevated on stool with pull to tolerance (gentle) x 8 minutes. Pillow added between blet and thighs. Skilled Intervention: Manual skills to improve joint mobility, ROM, and decrease pain. Utilized anatomy knowledge of the therapist, and assessment of patient's response to intervention. Billing Therapeutic Exercise Treatment Minutes: 37 Manual TherapyTreatment Minutes: 8 Total Treatment Time Minutes (timed/untimed): 45 RUBENS Patel PT documented in this encounter [facility] 12-27-2021 History of Present illness Narrative Episode Visit Count: 4 Therapist That Will Oversee The Plan Of Care: Kvng Forman PT Start of Care Date: 12/08/21 Onset Date: 12/09/19 Plan of Care Certification Date: 12/08/21 Next Certification Due Date: 01/19/22 Patient Identified by Name and Date of : Yes REHABILITATION AND SPORTS THERAPY PHYSICAL THERAPY TREATMENT NOTE ASSESSMENT: Fran Lopez tolerated the session with decreased symptoms. He demonstrated difficulty with pain when he first wakes up and if he takes a nap in the afternoon. He had a reduction in pain this morning after taking tylenol. He had a slight reduction in pain after exercises and manual belt traction. Will monitor delyaed response to traction. . The patient will continue to benefit from ongoing skilled physical therapy to progress toward set goals. PLAN FOR NEXT VISIT: Monitor delayed response to manual belt traction SUBJECTIVE: Patient Reason for Visit: Patient reports increase pain first thing in the morning and after taking a nap. He reports 10/10 pain initially this AM which has decreased 4/10 after takingn Tylenol. He reports feeling better overall since starting therapy. Pain: Pain Pain Level: 4 (10/10 when he got up this morning) Pain Location: Low Back/Lumbar Spine - Right;Low Back/Lumbar Spine - Left;Buttocks - Right;Buttocks - Left Description: Sharp Frequency: Intermittent Post Treatment Pain Post Treatment Pain Level: 3 Post Treatment Pain Location: Low Back/Lumbar Spine - Right;Low Back/Lumbar Spine - Left;Buttocks - Right;Buttocks - Left Post Treatment Pain Description: Aching Post Treatment Symptoms: feels better OBJECTIVE MEASURES WITH LEVEL OF FUNCTION: Improved form with exercises with less verbal cueing. TREATMENT: Therapeutic Exercise: 1: Lánz[employer] StepOne seat #16 x5 minutes handles at #5 (Subjective taken and education to do exercises first thing in the morning when he gets up.) 2: supine B SKTC 3x30 seconds 3: supine DKTC 3x30 seconds 4: supine LTR 2x10 5: supine isometric abdominal exercise 2 second holds 2x10 (education to count out loud for proper breathing) 6: Supine PPT 2x10 (education to place hand under back for feedback for proper form) 7: supine bridging 2x10 in small range 8: crunches in very small range 2x10 9: purple t-band perturbations sitting at edge of mat table 3x15 R, L and forward 10: seated scapular retraction at edge of mat table 2x10 emphasis on posture and purple t-band 11: Education to do exercises first thing in the morning to assist with pain control. Skilled Intervention: Patient was educated in proper exercise technique and purpose for exercises. Skilled judgment was provided in selection of appropriate interventions. Correct performance of therapeutic exercises was facilitated with verbal and visual cuing. Manual Therapy: Manual Traction: Manual lumbar traction with legs elevated on stool with pull to tolerance (gentle) x 8 minutes. (Education on centralization of symptoms. Possibly add pillow between thighs and belt next visit.) Skilled Intervention: Manual skills to improve joint mobility, ROM, and decrease pain. Utilized anatomy knowledge of the therapist, and assessment of patient's response to intervention. Billing Therapeutic Exercise Treatment Minutes: 37 Manual TherapyTreatment Minutes: 8 Total Treatment Time Minutes (timed/untimed): 45 RUBENS Patel PT documented in this encounter [facility] 12-20-2021 History of Present illness Narrative Episode Visit Count: 3 Therapist That Will Oversee The Plan Of Care: Kvng Forman PT Start of Care Date: 12/08/21 Onset Date: 12/09/19 Plan of Care Certification Date: 12/08/21 Next Certification Due Date: 01/19/22 Patient Identified by Name and Date of : Yes REHABILITATION AND SPORTS THERAPY PHYSICAL THERAPY TREATMENT NOTE ASSESSMENT: Fran Rascon Marinosanaz tolerated the session with fatigue, expected muscle soreness, and no issues. He demonstrated improvements in pain, activity tolerance and functional mobility for transfers. The patient will continue to benefit from ongoing skilled physical therapy to progress toward set goals. PLAN FOR NEXT VISIT: Review, correct and progress HEP to tolerance. continue with therex with flexion directional preference, emphasis on core strengthening. Balance training prn and possibly very gentle manual belt traction being cautious about R SUSAN from 2 years ago. Therex alone has been successful in short term. SUBJECTIVE: Patient Reason for Visit: Pt reports compliance with HEP 2x day. He reports that overall he is having less pain, less often. He reports that the improvement is very noticeable and not a coincidence. He attributes the improvements to the PT. He denies any increased pain or problems following last session. He reports a significant improvment with getting out of bed. He reports less pain and less stiffness moving supine to sitting. Pain: Pain Pain Level: 6 Pain Location: Low Back/Lumbar Spine - Right;Low Back/Lumbar Spine - Left Description: Aching Frequency: Intermittent;Standing;Walking Post Treatment Pain Post Treatment Pain Level: Better Post Treatment Pain Location: Low Back/Lumbar Spine - Right;Low Back/Lumbar Spine - Left Post Treatment Symptoms: After session pt reported feeling better in general and he denied any increase in pain, just the effects of a good workout. OBJECTIVE MEASURES WITH LEVEL OF FUNCTION: Gait Gait Observation: Mobility in general was better today sit to stand and with walking. TREATMENT: Therapeutic Exercise: 1: Lán[employer] StepOne seat #16 x5 minutes handles at #5 (Pt provided an update on his condition and plan of care reviewed.) 2: supine B SKTC 3x30 seconds 3: supine DKTC 3x30 seconds 4: supine LTR 2x10 5: supine isometric abdominal exercise 2 second holds 2x10 6: supine posterior pelvic tilts 2x10 with emphasis on proper breathing to avoid valsalva. (lots and lots of cues and demonstration) 7: supine bridging 2x10 in small range (lots of cues) 8: crunches in very small range 2x10 9: purple t-band perturbations sitting at edge of mat table 3x15 R, L and forward 10: seated scapular retraction at edge of mat table 2x10 emphasis on posture and purple t-band Skilled Intervention: Patient was educated in proper exercise technique and purpose for exercises. Reviewed and educated patient on additions/changes for home exercise program as above (*). Skilled judgment was provided in selection of appropriate interventions. Correct performance of therapeutic exercises was facilitated with verbal, visual, and tactile cuing. Patient education as noted. Billing Therapeutic Exercise Treatment Minutes: 40 Total Treatment Time Minutes (timed/untimed): 40 Kvng Golias, PT documented in this encounter [facility] 12-17-2021 Miscellaneous Notes BRONSON 12/01/21 NOV 02/08/22 Patient has been identified by name and date of : Yes Requested Prescriptions Pending Prescriptions Disp Refills metoprolol succinate ER (TOPROL XL) 25 mg 24 hr tablet 90 tablet 3 Sig: Take 1 tablet by mouth once daily. atorvastatin (LIPITOR) 40 mg tablet 90 tablet 1 Sig: Take 1 tablet by mouth once daily. RX INSTRUCTIONS: Patient aware RX will be sent to pharmacy. No need to notify patient. Vaishali Schneider documented in this encounter [facility] 12-09-2021 History of Present illness Narrative Episode Visit Count: 1 Therapist That Will Oversee The Plan Of Care: Kvng Forman PT Start of Care Date: 12/08/21 Onset Date: 12/09/19 Plan of Care Certification Date: 12/08/21 Next Certification Due Date: 01/19/22 Patient Identified by Name and Date of : Yes REHABILITATION AND SPORTS THERAPY PHYSICAL THERAPY EVALUATION PLAN OF CARE: Assessment: Fran Lopez presents with chief complaint of low back and B leg pain that interferes with standing;walking;bending (prolonged standing and walking) . He presents with impairments in ADL's, balance, gait, independence in exercise, overall function, range of motion, strength , and symptom management. Prognosis for therapy is Good due to: current objective clinical presentation;within-session changes;good support system/ coping skills. He will benefit from skilled therapy services to meet the goals established for this plan of care as noted below. Assessment Fall Risk : Inactive at risk Classification Low Back Pain Subgroup Classification: Specific exercise subgroup: recommended visits 8. Specific Exercies Subgroup Classification based on: directional preference Goals for Episode of Care: created on 12/08/21 through 01/19/22 Patient will decrease pain to 0/10 at rest and with functional activities to allow patient to improve standing tolerance for ADLs. Restore pain-free lumbar ROM to WFL to allow for improved bending tolerance Stand / Walk without limitations, without pain/symptoms. Patient will increase strength of core and postural muscles to WFL to allow for improve ability to complete ADLs, especially prolonged standing and walking. Patient Goals: decrease pain and increase standing and walking tolerance. Planned Interventions, Frequency, and Duration: Current Frequency: 2x/week Duration: 6 weeks Total Number of Visits Planned: 12 Planned Treatment Interventions: Therapeutic exercise (52474);Self-skilled nursing management (92404);Neuromuscular re-education ([id number]);Manual therapy ([id number]);Therapeutic activities (48352);Patient/Family/Caregiver Education;Gait Training ([id number]);Body Mechanics Training;General Conditioning PLAN FOR NEXT VISIT: Review, correct and progress HEP to tolerance. continue with therex with flexion directional preference, emphasis on core strengthening. Balance training prn and possibly very gentle manual belt traction being cautious about R SUSAN from 2 years ago. Patient demonstrates good understanding of plan of care and treatment. The above goals and plan of care were discussed and agreed upon by patient/family. SUBJECTIVE: Fran Lopez is a 76 year old male seen today for intermittent pain across both sides of low back that radiates down B LEs to ankles. He reports that this pain began after R SUSAN 2 years ago and has been present since then. Pt does not have any concerns about his balance. He reports that he has only had one fall and it was caused by the terrain and not a loss of balance. Pt is requesting to focus on his low back pain. Pt reports that swelling and lack of feeling in his legs is the cause for some of his limitations. Patient Goals: decrease pain and increase standing and walking tolerance. 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 Intake Information: Prescription present Previous Treatment: None Falls Interview: Two or more falls in the last year Falls Intervention: Falls Specific Functional Performance Tests Falls History # of falls in past year: 2 (both at [facility]) # of falls resulting in an injury in past year: 0 Red Flags Vertebral Fracture Red Flags: Age >70 Vertebral Fracture Clinical Reasoning: Proceed with caution due to the above (1-2) risk factors Abdominal Aortic Aneurysm Clinical Reasoning: No identified risk factors. Cancer Red Flags: History of Cancer Cancer Clinical Reasoning: Proceed with caution (skin cancer 8 years ago) Infection Clinical Reasoning: No identified risk factors. Cauda Equina Syndrome Clinical Reasoning: No identified risk factors. Red Flags - Cervical Cancer Red Flags: History of Cancer Cancer Clinical Reasoning: Proceed with caution (skin cancer 8 years ago) Infection Clinical Reasoning: No identified risk factors. Spine History Symptoms Location at Onset: Back Symptoms Since Onset: Unchanging Pain is Worse Always: Standing;Walking;Bending Pain is Better Sometimes: Sitting Previous Episodes: Yes Previous Spine Episodes: chronic low back pain Sleeping Position: Side lying right;Side lying left;Supine Sleep Affected by Pain: Not affected by pain Pain: Pain Pain Level: (0/10 currently sitting and resting, 7-10/10 at worst) Pain Location: Low Back/Lumbar Spine - Right;Low Back/Lumbar Spine - Left;Leg - Right;Leg - Left Description: Sharp;Aching Frequency: Intermittent;Standing;Walking Post Treatment Pain Post Treatment Pain Level: No Change Post Treatment Pain Location: Calf - Left Post Treatment Pain Description: (no increase during therex) Post Treatment Symptoms: During therex initiation he denied any increase in pain but after session and during prolonged standing he did report the onset of lateral left lower leg pain. PROMIS Scales Higher is Better 08/02/2016 11/17/2019 GH Physical - Score - 50.8 GH Physical - Percentile - 53 % GH Mental - Score - 53.3 GH Mental - Percentile 96 % 63 % T-scores: mean of general population = 50. 5 points is clinically meaningfully difference Percentiles provide an indication of how the patient's score ranks in relation to the general population. Higher percentile rankings indicate better function/quality of life. 50th percentile is the average of the general population and indicates half of respondents had a worse score. T-scores: mean of general population = 50. 5 points is clinically meaningfully difference Percentiles provide an indication of how the patient's score ranks in relation to the general population. Higher percentile rankings indicate better function/quality of life. 50th percentile is the average of the general population and indicates half of respondents had a worse score. OBJECTIVE MEASURES WITH LEVEL OF FUNCTION: Posture / Alignment Posture: Forward head;Increased thoracic kyphosis;Rounded shoulders Lumbar Spine AROM Lumbar Flexion: Moderate limitation Lumbar Extension: Major limitation Lumbar R Side-Bend: Normal Lumbar L Side-Bend: Normal Lumbar R Rotation: Minimal limitation;Increased pain Lumbar L Rotation: Normal LE Strength Trunk Strength: The reported chronicity of symptoms and reported functional difficulties, especially for prolonged standing all indicate that he will benefit from increased core/postural strength. Special Tests - Hip and Spine Hip and Spine Special Tests: SLR Test SLR Test: Right Positive;Left Positive Gait Gait Observation: Pt ambulates safe with no assistive device. He has flat footed gait with decreased heel strike and decreased push off. Generally rigid gait. Functional Performance Test Results Assistive Device: None Timed Up and Go (sec): 8.3 sec Timed Up and Go - Condition 2 (sec) : 7.3 4 Stage Balance Test Narrow base of support (sec): 60 sec Semi-tandem base of support (sec): 60 sec Tandem base of support (sec): 34 sec Education: Education Learning Preferences: Demonstration;Explanation;Performa nce;Printed Materials Barriers: None Learning/educational needs: Home exercise program;Plan of Care;Lifestyle changes;Posture;Body Mechanics Education Provided: Yes, see treatment interventions for education provided Education Provided To: Patient Education Mode/Type: Demonstration;Explanation/Discussi on;Literature/Printed Materials;Performance Response to Education/Teach Back: States/Identifies;Return Demonstration;Requires Review/Additional Education TREATMENT: PT Treatment Interventions: Therapeutic Exercise;Self-Mcc Management Evaluation Therapeutic Exercise: 1: Pt was educated on the anatomy of symptomatic area, likely source of symptoms and rationale for proposed treatment plan. He was educated on proper intensity with therex and the importance of stopping any exercise that causes an increase in his familiar pain. 2: *supine B SKTC 3x30 seconds 3: *supine DKTC 3x30 seconds Skilled Intervention: Patient was educated in proper exercise technique and purpose for exercises. Reviewed and educated patient on additions/changes for home exercise program as above (*). Skilled judgment was provided in selection of appropriate interventions. Provided written instruction for home exercise program to facilitate proper performance and compliance. Correct performance of therapeutic exercises was facilitated with verbal and visual cuing. Patient education as noted. Self-Mcc Management: 1: Pt was educated on the anatomy of lumbar spine, likely source of symptoms, rationale for proposed treatment plan and this will all impact his ADLs and function. His question about inversion tables was answered and he was discouraged from using this and rationale provided. A model of the spine was used to educate patient on anatomy and the effects of flexion and extension on his symptoms. He was educated on how this impacts his directional preference. Pt questions about whether he should walk for exercise were answered. He was encouraged to use pain as his guide for all activities. The role of PT was explained and plan of care options provided. Pt's request to focus on his low back and LE symptoms was discussed and his minimal fall risk was also discussed. Skilled Intervention: Skilled judgment in the selection of proper modification for activity of daily living/home management based on clinical presentation, deficits, and needs. Reviewed patient specific diagnosis in relation to activities of daily living/home management. Billing * Evaluation Moderate Complexity: 1 Unit Therapeutic Exercise Treatment Minutes: 15 Self-Care/Home Management Treatment Minutes: 15 Total Treatment Time Minutes (timed/untimed): 60 Kvng Forman PT documented in this encounter [facility] 12-02-2021 Miscellaneous Notes Letter mailed to pt home of results. Amara Owen MA A1c improved from 6.1 to 5.8. Borderline prediabetic range. Recommend low carb diet and exercise as able. Kidney function is down from last check. Still in stage III range. Recommend he stop all NSAIDs including: ibuprofen, aleve, meloxicam. May use tylenol for pain or fever. Push PO fluids. Will recheck prior to next OV. documented in this encounter [facility] 11-11-2021 History of Present illness Narrative This note was created using NoteWriter. Subjective Fran Lopez is a 76 year old male. HPI Patient presents with a chief complaint of right ear pain over the past week to 2 weeks. He states he scratched his ear canal with a [place] pin because it was itchy and since then its been painful. No trouble hearing. No cough or congestion. No sore throat. No vomiting. No fevers or chills. He states he is leaving for a trip to [place] and wanted to get it taken care of before he left. No recent swimming. Review of Systems Constitutional: Negative. HENT: Positive for ear pain. Negative for dental problem, ear discharge, facial swelling, rhinorrhea, sinus pressure, sinus pain and sore throat. Respiratory: Negative. Cardiovascular: Negative. Gastrointestinal: Negative. Genitourinary: Negative. Musculoskeletal: Negative. All other systems reviewed and are negative. 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 Chowdary in [place] Stage 3a chronic kidney disease (HCC) Venous insufficiency Current Outpatient Medications Medication Sig Dispense Refill atorvastatin (LIPITOR) 40 mg tablet Take 1 tablet by mouth once daily. 90 tablet 1 hydroCHLOROthiazide (HYDRODIURIL, ESIDRIX) 25 mg tablet Take 1 tablet by mouth once daily. 90 tablet 3 CPAP Please provide mask fitting. Pt with subjective and some degree objective leaks. Prefers nasal type mask. Thank you. DME = [facility] 1 Each 99 acetaminophen (TYLENOL ARTHRITIS PAIN) 650 mg CR tablet Take 650 mg by mouth as needed. lisinopril (ZESTRIL, PRINIVIL) 40 mg tablet Take 1 tablet by mouth once daily. 90 tablet 3 metoprolol succinate ER (TOPROL XL) 25 mg 24 hr tablet Take 1 tablet by mouth once daily. 90 tablet 3 aspirin, enteric coated (ASPIRIN, ENTERIC COATED) 81 mg EC tablet Take 81 mg by mouth once daily. CPAP AutoPAP [id number]. Mask per preference, tubing, filters, humidity. [employer] Supplies. Dx: G47.33. Fax 30 day compliance report to [phone]. 1 Device 0 MULTIVITAMIN,TX-MINERALS ORAL TAB Take one(1) tablet daily. 60 0 fnilmztc-tvolpgkmh-ppmbflguhlkzte (CORTISPORIN) 3.5-10,000-1 mg/mL-unit/mL-% otic suspension Use 3 Drops in both ears three times daily for 7 days. 10 mL 0 levothyroxine (SYNTHROID) 125 mcg tablet Take 1 tablet by mouth once daily. TAKE 1 TABLET BY MOUTH ONCE DAILY. TAKE ON EMPTY STOMACH. FOR THYROID 90 tablet 3 No current facility-administered medications for this visit. PAST SURGICAL HISTORY Procedure Laterality Date ARTHRP ACETBLR/PROX FEM PROSTC AGRFT/ALGRFT Right 06/03/2019 Hip replacement, total COLONOSCOPY FLX DX W/COLLJ SPEC WHEN PFRMD 04/21/11 Repeat 10 [id number] LASER GREENLIGHT prostate, [place] NEUROPLASTY &/TRANSPOS MEDIAN NRV CARPAL TUNNE Left 01/17/2020 Left carpal tunnel release NEUROPLASTY &/TRANSPOS MEDIAN NRV CARPAL TUNNE Right 03/04/2020 Right carpal tunnel release RPR UMBILICAL HRNA 5 YRS/> REDUCIBLE TONSILLECTOMY PRIMARY/SECONDARY <AGE 11 Tonsillectomy FAMILY HISTORY Problem Relation Age of Onset Heart Mother other (Myocardial infarction) Mother 81 Headache Father MIGRAINES other (lung cancer) Father DECEACED AGE 86 YR LUNG CA No Known Problems Sister No Known Problems Sister Headache Sister MIGRAINES other (Myocardial infarction) Maternal Grandfather 64 other (Myocardial infarction) Maternal Uncle 74 Social History Tobacco Use Smoking status: Never Smoker Smokeless tobacco: Never Used Vaping Use Vaping Use: Never used Substance Use Topics Alcohol use: No Drug use: No Objective BP 140/90 Pulse 72 Temp 36.3 C (97.4 F) Resp 20 Wt 130.6 kg (288 lb) SpO2 97% BMI 41.32 kg/m Physical Exam Vitals reviewed. Constitutional: Appearance: Normal appearance. HENT: Head: Normocephalic and atraumatic. Right Ear: External ear normal. Left Ear: Tympanic membrane, ear canal and external ear normal. Ears: Comments: Mild erythema and swelling or right EAC with some exudate. Tm intact and normal. Nose: Nose normal. Mouth/Throat: Mouth: Mucous membranes are moist. Pharynx: Oropharynx is clear. Cardiovascular: Rate and Rhythm: Normal rate and regular rhythm. Heart sounds: Normal heart sounds. Pulmonary: Effort: Pulmonary effort is normal. Breath sounds: Normal breath sounds. Musculoskeletal: Cervical back: Neck supple. Skin: General: Skin is warm and dry. Neurological: Mental Status: He is alert. Assessment and Plan ASSESSMENT/PLAN: 1. Acute otitis externa of right ear, unspecified type - ICD9: 380.10, ICD10: H60.501 Given Cortisporin drops. Follow-up with PCP as needed. Patient agreeable. Tri Hylton PA-C documented in this encounter [facility] 10-19-2021 History of Present illness Narrative Patient presents for Shingrix vaccine. Denies any problems at this time. Tolerated injection well. Marielle Bruner LPN documented in this encounter [facility] 10-19-2021 Miscellaneous Notes Order approved. Patient scheduled for nurse visit 10/19/21 to receive Shingrix vaccine. Please place order at this time. Marielle Bruner LPN documented in this encounter [facility] 10-06-2021 Miscellaneous Notes Spoke with patient and gave PCP instructions. Voiced understanding declined appointment at this time. He was instructed if new or worsening sx develop to contact office for an OV. Meredith Thompson MA 30 day rx sent in for pain. If worsening, would have him come in for OV. For leg swelling would recommend he wear daily compression stockings, elevate his legs when resting, and stick to low sodium diet as discussed at his last OV. Again, if worsening, needs OV. Pt reports Dr Renee would give him Meloxicam for his back and he has been having more pain and is asking if provider would order it. Pt is also asking if it provider would approve for him to get soft massage in his legs for some swelling his massage therapist noticed. He states he has been going to her for 3 years about every 3 weeks for a pinched nerve in his neck, and states she is trained in this, but wanted to run it past his provider first. Please call and advise. Patient has been identified by name and date of : Yes Patient phones for refill(s): Pending Prescriptions Disp Refills MELOXICAM 15 MG TABLET Sig: Take 1 tablet by mouth once daily. With food. NEYMAR: No Date of last office visit in primary care: 07/12/21 Future visit: none Last 2 Encounter Wt Readings: Date: Wt: 07/12/2021 125.6 kg (277 lb) 06/07/2021 123.7 kg (272 lb 9.6 oz) Previous labs/tests for medication: Blood Pressure: BUN (mg/dL) Date Value 07/12/2021 19 02/01/2021 24 Sodium (mmol/L) Date Value 07/12/2021 137 02/01/2021 135 Last 1 Encounter BP Readings: Date: BP: 07/12/2021 122/70 Liver Function: ALT (U/L) Date Value 07/12/2021 27 02/01/2021 39 AST (U/L) Date Value 07/12/2021 25 02/01/2021 28 Please advise. Thank you. Katlyn Melissa RN documented in this encounter [facility] 07-14-2021 Miscellaneous Notes Lab client services called. A1C added on to recent blood work. Eunice Bruce LPN See of lab can add on A1c to recent blood work. 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 documented as of this encounter (statuses as of 10/19/2021) [facility] History of Past illness Narrative* Problem Noted Date Resolved Date Osteoarthritis of right hip 06/03/20190 09/2019 Right flank pain 02/04/2013 05/09/2014 Right kidney stone 02/04/2013 05/09/2014 Open fracture of distal phalangeal tuft 08/31/19 12 05/09/2014 Ingrowing nail 11/26/2007 05/09/2014 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 documented as of this encounter (statuses as of 11/11/2021) [facility] History of Past illness Narrative* Problem Noted Date Resolved Date Osteoarthritis of right hip 06/03/20190 09/2019 Right flank pain 02/04/2013 05/09/2014 Right kidney stone 02/04/2013 05/09/2014 Open fracture of distal phalangeal tuft 08/31/19 12 05/09/2014 Ingrowing nail 11/26/2007 05/09/2014 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 documented as of this encounter (statuses as of 11/19/2021) [facility] History of Past illness Narrative* Problem Noted Date Resolved Date Osteoarthritis of right hip 06/03/201909/2019 Right flank pain 02/04/2013 05/09/2014 Right kidney stone 02/04/2013 05/09/2014 Open fracture of distal phalangeal tuft 08/31/19 12 05/09/2014 Ingrowing nail 11/26/2007 05/09/2014 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 documented as of this encounter (statuses as of 12/02/2021) [facility] History of Past illness Narrative* Problem Noted Date Resolved Date Osteoarthritis of right hip 06/03/201909/2019 Right flank pain 02/04/2013 05/09/2014 Right kidney stone 02/04/2013 05/09/2014 Open fracture of distal phalangeal tuft 08/31/19 12 05/09/2014 Ingrowing nail 11/26/2007 05/09/2014 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 documented as of this encounter (statuses as of 12/09/2021) [facility] History of Past illness Narrative* Problem Noted Date Resolved Date Osteoarthritis of right hip 06/03/201909/2019 Right flank pain 02/04/2013 05/09/2014 Right kidney stone 02/04/2013 05/09/2014 Open fracture of distal phalangeal tuft 08/31/19 12 05/09/2014 Ingrowing nail 11/26/2007 05/09/2014 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 documented as of this encounter (statuses as of 12/17/2021) [facility] History of Past illness Narrative* Problem Noted Date Resolved Date Osteoarthritis of right hip 06/03/201909/2019 Right flank pain 02/04/2013 05/09/2014 Right kidney stone 02/04/2013 05/09/2014 Open fracture of distal phalangeal tuft 0505/09/2014 Ingrowing nail 11/26/2007 05/09/2014 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 documented as of this encounter (statuses as of 12/20/2021) [facility] History of Past illness Narrative* Problem Noted Date Resolved Date Osteoarthritis of right hip 06/03/20190 09/2019 Right flank pain 02/04/2013 05/09/2014 Right kidney stone 02/04/2013 05/09/2014 Open fracture of distal phalangeal tuft 08/31/19 12 05/09/2014 Ingrowing nail 11/26/2007 05/09/2014 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 documented as of this encounter (statuses as of 12/27/2021) [facility] History of Past illness Narrative* Problem Noted Date Resolved Date Osteoarthritis of right hip 06/03/201909/2019 Right flank pain 02/04/2013 05/09/2014 Right kidney stone 02/04/2013 05/09/2014 Open fracture of distal phalangeal tuft 08/31/19 12 05/09/2014 Ingrowing nail 11/26/2007 05/09/2014 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 documented as of this encounter (statuses as of 12/30/2021) [facility] History of Past illness Narrative* Problem Noted Date Resolved Date Osteoarthritis of right hip 06/03/201909/2019 Right flank pain 02/04/2013 05/09/2014 Right kidney stone 02/04/2013 05/09/2014 Open fracture of distal phalangeal tuft 08/31/19 12 05/09/2014 Ingrowing nail 11/26/2007 05/09/2014 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 documented as of this encounter (statuses as of 01/04/2022) [facility] History of Past illness Narrative* Problem Noted Date Resolved Date Osteoarthritis of right hip 06/03/20190 09/2019 Right flank pain 02/04/2013 05/09/2014 Right kidney stone 02/04/2013 05/09/2014 Open fracture of distal phalangeal tuft 08/31/1905/09/2014 Ingrowing nail 11/26/2007 05/09/2014 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 documented as of this encounter (statuses as of 01/10/2022) [facility] of Past illness Narrative* Problem Noted Date Resolved Date Osteoarthritis of right hip 06/03/201909/2019 Right flank pain 02/04/2013 05/09/2014 Right kidney stone 02/04/2013 05/09/2014 Open fracture of distal phalangeal tuft 08/31/1905/09/2014 Ingrowing nail 11/26/2007 05/09/2014 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 documented as of this encounter (statuses as of 01/12/2022) [facility] of Past illness Narrative* Problem Noted Date Resolved Date Osteoarthritis of right hip 06/03/201909/2019 Right flank pain 02/04/2013 05/09/2014 Right kidney stone 02/04/2013 05/09/2014 Open fracture of distal phalangeal tuft 08/31/1905/09/2014 Ingrowing nail 11/26/2007 05/09/2014 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 documented as of this encounter (statuses as of 01/17/2022) [facility] of Past illness Narrative* Problem Noted Date Resolved Date Osteoarthritis of right hip 06/03/201909/2019 Right flank pain 02/04/2013 05/09/2014 Right kidney stone 02/04/2013 05/09/2014 Open fracture of distal phalangeal tuft 08/31/19 12 05/09/2014 Ingrowing nail 11/26/2007 05/09/2014 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 documented as of this encounter (statuses as of 01/20/2022) [facility] of Past illness Narrative* Problem Noted Date Resolved Date Osteoarthritis of right hip 06/03/20190 09/2019 Right flank pain 02/04/2013 05/09/2014 Right kidney stone 02/04/2013 05/09/2014 Open fracture of distal phalangeal tuft 08/31/19 12 05/09/2014 Ingrowing nail 11/26/2007 05/09/2014 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 documented as of this encounter (statuses as of 01/24/2022) [facility] of Past illness Narrative* Problem Noted Date Resolved Date Osteoarthritis of right hip 06/03/20190 09/2019 Right flank pain 02/04/2013 05/09/2014 Right kidney stone 02/04/2013 05/09/2014 Open fracture of distal phalangeal tuft 08/31/19 12 05/09/2014 Ingrowing nail 11/26/2007 05/09/2014 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 documented as of this encounter (statuses as of 01/31/2022) [facility] of Past illness Narrative* Problem Noted Date Resolved Date Osteoarthritis of right hip 06/03/201909/2019 Right flank pain 02/04/2013 05/09/2014 Right kidney stone 02/04/2013 05/09/2014 Open fracture of distal phalangeal tuft 08/31/19 12 05/09/2014 Ingrowing nail 11/26/2007 05/09/2014 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 documented as of this encounter (statuses as of 02/03/2022) [facility] of Past illness Narrative* Problem Noted Date Resolved Date Osteoarthritis of right hip 06/03/201909/2019 Right flank pain 02/04/2013 05/09/2014 Right kidney stone 02/04/2013 05/09/2014 Open fracture of distal phalangeal tuft 08/31/19 12 05/09/2014 Ingrowing nail 11/26/2007 05/09/2014 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 documented as of this encounter (statuses as of 02/11/2022) [facility] of Past illness Narrative* Problem Noted Date Resolved Date Osteoarthritis of right hip 06/03/20190 09/2019 Right flank pain 02/04/2013 05/09/2014 Right kidney stone 02/04/2013 05/09/2014 Open fracture of distal phalangeal tuft 08/31/19 12 05/09/2014 Ingrowing nail 11/26/2007 05/09/2014 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 documented as of this encounter (statuses as of 04/12/2022) [facility] illness Narrative* Problem Noted Date Resolved Date Osteoarthritis of right hip 06/03/201909/2019 Right flank pain 02/04/2013 05/09/2014 Right kidney stone 02/04/2013 05/09/2014 Open fracture of distal phalangeal tuft 08/31/19 12 05/09/2014 Ingrowing nail 11/26/2007 05/09/2014 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 documented as of this encounter (statuses as of 04/14/2022) [facility] of Past illness Narrative* Problem Noted Date Resolved Date Osteoarthritis of right hip 06/03/201909/2019 Right flank pain 02/04/2013 05/09/2014 Right kidney stone 02/04/2013 05/09/2014 Open fracture of distal phalangeal tuft 08/31/19 12 05/09/2014 Ingrowing nail 11/26/2007 05/09/2014 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 documented as of this encounter (statuses as of 05/23/2022) [facility] of Past illness Narrative* Problem Noted Date Resolved Date Osteoarthritis of right hip 06/03/201909/2019 Right flank pain 02/04/2013 05/09/2014 Right kidney stone 02/04/2013 05/09/2014 Open fracture of distal phalangeal tuft 08/31/19 12 05/09/2014 Ingrowing nail 11/26/2007 05/09/2014 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 documented as of this encounter (statuses as of 06/10/2022) [facility] of Past illness Narrative* Problem Noted Date Resolved Date Osteoarthritis of right hip 06/03/201909/2019 Right flank pain 02/04/2013 05/09/2014 Right kidney stone 02/04/2013 05/09/2014 Open fracture of distal phalangeal tuft 08/31/19 12 05/09/2014 Ingrowing nail 11/26/2007 05/09/2014 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 documented as of this encounter (statuses as of 08/09/2022) [facility] of [facility] Narrative* Problem Noted Date Resolved Date Osteoarthritis of right hip 06/03/201909/2019 Right flank pain 02/04/2013 05/09/2014 Right kidney stone 02/04/2013 05/09/2014 Open fracture of distal phalangeal tuft 08/31/19 12 05/09/2014 Ingrowing nail 11/26/2007 05/09/2014 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 documented as of this encounter (statuses as of 11/02/2022) [facility] of [facility] illness Narrative* Problem Noted Date Resolved Date Osteoarthritis of right hip 06/03/201909/2019 Right flank pain 02/04/2013 05/09/2014 Right kidney stone 02/04/2013 05/09/2014 Open fracture of distal phalangeal tuft 08/31/1905/09/2014 Ingrowing nail 11/26/2007 05/09/2014 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 documented as of this encounter (statuses as of 11/03/2022) [facility] of [facility] illness Narrative* Problem Noted Date Diagnosed Date Resolved Date Osteoarthritis of right hip 06/03/2019 06/06/2019 Right flank pain 02/04/2013 05/09/2014 Right kidney stone 02/04/2013 5 Open fracture of distal phalangeal tuft 08/31/2011 05/09/2014 Ingrowing nail 11/26/2007 05/09/2014 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/02/2006 05/09/2014 documented as of this encounter (statuses as of 11/09/2022) [facility] of [facility] illness Narrative* Problem Noted Date Diagnosed Date Resolved Date Osteoarthritis of right hip 06/03/2019 06/06/2019 Right flank pain 02/04/2013 05/09/2014 Right kidney stone 02/04/2013 5 Open fracture of distal phalangeal tuft 08/31/2011 05/09/2014 Ingrowing nail 11/26/2007 05/09/2014 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/02/2006 05/09/2014 documented as of this encounter (statuses as of 11/09/2022) [facility] illness Narrative* Problem Noted Date Diagnosed Date Resolved Date Osteoarthritis of right hip 06/03/2019 06/06/2019 Right flank pain 02/04/2013 05/09/2014 Right kidney stone 02/04/2013 5 Open fracture of distal phalangeal tuft 08/31/2011 05/09/2014 Ingrowing nail 11/26/2007 05/09/2014 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/02/2006 05/09/2014 documented as of this encounter (statuses as of 11/29/2022) [facility] Narrative* Problem Noted Date Diagnosed Date Resolved Date Osteoarthritis of right hip 06/03/2019 06/06/2019 Right flank pain 02/04/2013 05/09/2014 Right kidney stone 02/04/2013 5 Open fracture of distal phalangeal tuft 08/31/2011 05/09/2014 Ingrowing nail 11/26/2007 05/09/2014 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/02/2006 05/09/2014 documented as of this encounter (statuses as of 12/01/2022) [facility] Narrative* Problem Noted Date Diagnosed Date Resolved Date Osteoarthritis of right hip 06/03/2019 06/06/2019 Right flank pain 02/04/2013 05/09/2014 Right kidney stone 02/04/2013 5 Open fracture of distal phalangeal tuft 08/31/2011 05/09/2014 Ingrowing nail 11/26/2007 05/09/2014 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/02/2006 05/09/2014 documented as of this encounter (statuses as of 12/07/2022) [facility] illness Narrative* Problem Noted Date Diagnosed Date Resolved Date Osteoarthritis of right hip 06/03/2019 06/06/2019 Right flank pain 02/04/2013 05/09/2014 Right kidney stone 02/04/2013 5 Open fracture of distal phalangeal tuft 08/31/2011 05/09/2014 Ingrowing nail 11/26/2007 05/09/2014 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/02/2006 05/09/2014 documented as of this encounter (statuses as of 12/08/2022) [facility] Narrative* Problem Noted Date Diagnosed Date Resolved Date Osteoarthritis of right hip 06/03/2019 06/06/2019 Right flank pain 02/04/2013 05/09/2014 Right kidney stone 02/04/2013 5 Open fracture of distal phalangeal tuft 08/31/2011 05/09/2014 Ingrowing nail 11/26/2007 05/09/2014 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/02/2006 05/09/2014 documented as of this encounter (statuses as of 12/09/2022) [facility] History of Past illness Narrative* Problem Noted Date Diagnosed Date Resolved Date Osteoarthritis of right hip 06/03/2019 06/06/2019 Right flank pain 02/04/2013 05/09/2014 Right kidney stone 02/04/2013 5 Open fracture of distal phalangeal tuft 08/31/2011 05/09/2014 Ingrowing nail 11/26/2007 05/09/2014 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/02/2006 05/09/2014 documented as of this encounter (statuses as of 12/16/2022) [facility] History of Past illness Narrative* Problem Noted Date Diagnosed Date Resolved Date Osteoarthritis of right hip 06/03/2019 06/06/2019 Right flank pain 02/04/2013 05/09/2014 Right kidney stone 02/04/2013 5 Open fracture of distal phalangeal tuft 08/31/2011 05/09/2014 Ingrowing nail 11/26/2007 05/09/2014 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/02/2006 05/09/2014 documented as of this encounter (statuses as of 12/22/2022) [facility] History of Past illness Narrative* Problem Noted Date Diagnosed Date Resolved Date Osteoarthritis of right hip 06/03/2019 06/06/2019 Right flank pain 02/04/2013 05/09/2014 Right kidney stone 02/04/2013 5 Open fracture of distal phalangeal tuft 08/31/2011 05/09/2014 Ingrowing nail 11/26/2007 05/09/2014 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/02/2006 05/09/2014 documented as of this encounter (statuses as of 12/28/2022) [facility] History of Past illness Narrative* Problem Noted Date Diagnosed Date Resolved Date Osteoarthritis of right hip 06/03/2019 06/06/2019 Right flank pain 02/04/2013 05/09/2014 Right kidney stone 02/04/2013 5 Open fracture of distal phalangeal tuft 08/31/2011 05/09/2014 Ingrowing nail 11/26/2007 05/09/2014 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/02/2006 05/09/2014 documented as of this encounter (statuses as of 12/29/2022) [facility] History of Past illness Narrative* Problem Noted Date Diagnosed Date Resolved Date Osteoarthritis of right hip 06/03/2019 06/06/2019 Right flank pain 02/04/2013 05/09/2014 Right kidney stone 02/04/2013 5 Open fracture of distal phalangeal tuft 08/31/2011 05/09/2014 Ingrowing nail 11/26/2007 05/09/2014 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/02/2006 05/09/2014 documented as of this encounter (statuses as of 01/23/2023) [facility] History of Past illness Narrative* Problem Noted Date Diagnosed Date Resolved Date Osteoarthritis of right hip 06/03/2019 06/06/2019 Right flank pain 02/04/2013 05/09/2014 Right kidney stone 02/04/2013 5 Open fracture of distal phalangeal tuft 08/31/2011 05/09/2014 Ingrowing nail 11/26/2007 05/09/2014 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/02/2006 05/09/2014 documented as of this encounter (statuses as of 02/08/2023) [facility] History of Past illness Narrative* Problem Noted Date Diagnosed Date Resolved Date Osteoarthritis of right hip 06/03/2019 06/06/2019 Right flank pain 02/04/2013 05/09/2014 Right kidney stone 02/04/2013 5 Open fracture of distal phalangeal tuft 08/31/2011 05/09/2014 Ingrowing nail 11/26/2007 05/09/2014 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/02/2006 05/09/2014 documented as of this encounter (statuses as of 03/08/2023) [facility] History of Past illness Narrative* Problem Noted Date Diagnosed Date Resolved Date Osteoarthritis of right hip 06/03/2019 06/06/2019 Right flank pain 02/04/2013 05/09/2014 Right kidney stone 02/04/2013 5 Open fracture of distal phalangeal tuft 08/31/2011 05/09/2014 Ingrowing nail 11/26/2007 05/09/2014 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/02/2006 05/09/2014 documented as of this encounter (statuses as of 03/14/2023) [facility] History of Past illness Narrative* Problem Noted Date Diagnosed Date Resolved Date Osteoarthritis of right hip 06/03/2019 06/06/2019 Right flank pain 02/04/2013 05/09/2014 Right kidney stone 02/04/2013 5 Open fracture of distal phalangeal tuft 08/31/2011 05/09/2014 Ingrowing nail 11/26/2007 05/09/2014 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/02/2006 05/09/2014 documented as of this encounter (statuses as of 03/20/2023) [facility] History of Past illness Narrative* Problem Noted Date Diagnosed Date Resolved Date Osteoarthritis of right hip 06/03/2019 06/06/2019 Right flank pain 02/04/2013 05/09/2014 Right kidney stone 02/04/2013 5 Open fracture of distal phalangeal tuft 08/31/2011 05/09/2014 Ingrowing nail 11/26/2007 05/09/2014 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/02/2006 05/09/2014 documented as of this encounter (statuses as of 06/16/2023) [facility] History of Past illness Narrative* Problem Noted Date Diagnosed Date Resolved Date Osteoarthritis of right hip 06/03/2019 06/06/2019 Right flank pain 02/04/2013 05/09/2014 Right kidney stone 02/04/2013 5 Open fracture of distal phalangeal tuft 08/31/2011 05/09/2014 Ingrowing nail 11/26/2007 05/09/2014 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/02/2006 05/09/2014 documented as of this encounter (statuses as of 06/22/2023) [facility] noteN/[facility] Diagnosis Cervical radiculopathy Brachial neuritis or radiculitis nos documented in this encounter [facility] note* Diagnosis Need for vaccination- Primary Need for prophylactic vaccination and inoculation against unspecified single disease documented in this encounter [facility] note* Diagnosis Need for vaccination- Primary Need for prophylactic vaccination and inoculation against unspecified single disease [facility] Diagnosis Acute otitis externa of right ear, unspecified type- Primary [facility]* Diagnosis Elevated glucose- Primary Other abnormal glucose [facility]* Diagnosis Stage 3b chronic kidney disease (HCC)- Primary [facility]* Diagnosis Chronic bilateral low back pain with bilateral sciatica At high risk for falls Personal history of fall Age-related physical debility Senility without mention of psychosis Personal history of fall [facility]* Diagnosis ASHD (arteriosclerotic heart disease) Coronary atherosclerosis of unspecified type of vessel, comanche or graft Hyperlipidemia LDL goal <100 Other and unspecified hyperlipidemia [facility] Diagnosis Chronic bilateral low back pain with bilateral sciatica- Primary Personal history of fall Age-related physical debility Senility without mention of psychosis [facility] Diagnosis Chronic bilateral low back pain with bilateral sciatica- Primary Personal history of fall Age-related physical debility Senility without mention of psychosis [facility] Diagnosis Chronic bilateral low back pain with bilateral sciatica- Primary Personal history of fall Age-related physical debility Senility without mention of psychosis [facility] Diagnosis Chronic bilateral low back pain with bilateral sciatica- Primary Personal history of fall Age-related physical debility Senility without mention of psychosis [facility] Diagnosis Chronic bilateral low back pain with bilateral sciatica- Primary Personal history of fall Age-related physical debility Senility without mention of psychosis [facility] Diagnosis Chronic bilateral low back pain with bilateral sciatica- Primary Personal history of fall Age-related physical debility Senility without mention of psychosis [facility] Diagnosis Chronic bilateral low back pain with bilateral sciatica- Primary Personal history of fall Age-related physical debility Senility without mention of psychosis [facility] Diagnosis Chronic bilateral low back pain with bilateral sciatica- Primary Personal history of fall Age-related physical debility Senility without mention of psychosis [facility] Diagnosis MARTIN on CPAP- Primary Obstructive sleep apnea (adult) (pediatric) [facility] Diagnosis Medicare annual wellness visit, subsequent- Primary [facility] Essential hypertension, benign Stage 3b chronic kidney disease (HCC) Obesity, Class III, 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) Morbid obesity Acquired hypothyroidism Unspecified hypothyroidism Advance directive discussed with patient Other specified counseling MARTIN (obstructive sleep apnea) Obstructive sleep apnea (adult) (pediatric) [facility] Diagnosis URI, acute- Primary Acute upper respiratory infections of unspecified site [facility] Diagnosis Status post total replacement of right hip- Primary [facility] Diagnosis Essential hypertension, benign [facility] Diagnosis Essential hypertension, benign- Primary Hyperlipidemia LDL goal <100 Other and unspecified hyperlipidemia Prediabetes Other abnormal glucose Acquired hypothyroidism Unspecified hypothyroidism Stage 3b chronic kidney disease (HCC) 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, Class III, 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) Morbid obesity Venous insufficiency (chronic) (peripheral) Unspecified venous (peripheral) insufficiency Bilateral leg edema Edema MARTIN (obstructive sleep apnea) Obstructive sleep apnea (adult) (pediatric) ASHD (arteriosclerotic heart disease) Coronary atherosclerosis of unspecified type of vessel, comanche or graft [facility] Diagnosis Essential hypertension, benign Stage 3b chronic kidney disease (HCC) Bilateral leg edema Edema ASHD (arteriosclerotic heart disease) Coronary atherosclerosis of unspecified type of vessel, comanche or graft documented [facility] Diagnosis Chronic bilateral low back pain with bilateral sciatica- Primary [facility] Diagnosis Chronic bilateral low back pain with bilateral sciatica- Primary [facility] Diagnosis Chronic bilateral low back pain with bilateral sciatica- Primary [facility] Diagnosis ASHD (arteriosclerotic heart disease) Coronary atherosclerosis of unspecified type of vessel, comanche or graft Hyperlipidemia LDL goal <100 Other and unspecified hyperlipidemia [facility] Diagnosis Chronic bilateral low back pain with bilateral sciatica- Primary [facility] Diagnosis Chronic bilateral low back pain with bilateral sciatica- Primary [facility] Diagnosis Chronic bilateral low back pain with bilateral sciatica- Primary [facility] Diagnosis Chronic bilateral low back pain with bilateral sciatica- Primary [facility] Diagnosis Chronic bilateral low back pain with bilateral sciatica- Primary [facility] this [facility] Diagnosis Essential hypertension, benign documented in this encounter [facility] Diagnosis ASHD (arteriosclerotic heart disease) Coronary atherosclerosis of unspecified type of vessel, comanche or graft Hyperlipidemia LDL goal <100 Other and unspecified hyperlipidemia documented in this encounter [facility] note* Diagnosis Essential hypertension, benign- Primary documented in this encounter [facility] for referral (narrative)* Name Reason for referral [facility] of D[facility]atology Reason for visit Narrative* Outpatient Procedure (Routine) - Closed Specialty Diagnoses / Procedures Referred By Panda richards [facility] Diagnoses Essential hypertension, benign Stage 3b chronic kidney disease (HCC) Bilateral leg edema ASHD (arteriosclerotic heart disease) Procedures [facility] W/WOM-MODE COMPL SPEC&COLR D PodlogarMarilia APRN.COMMISSARY HELPER [address] [place] [address] [facility] [address] [place] [id number] Referral ID Status Reason Start Date Expiration Date V isits Requested Visits Authorized [id number] Closed Auto-Generate d Referral 11/02/2022 11/02/2023 1 1 [facility] Summary Purpose Family History No Family History Records FoundNo Family History Records FoundNo Family History Records Found Advance Directives No Advanced Directives Records FoundDocuments on File Type Date Recorded Patient Food Safety Director Expl anation Advance Directive(s) 03/04/2020 7:50 AM Advance Directive(s) 01/15/2020 7:27 PM me paz Advance Directive(s) 06/03/2019 8:39 AM Latest Code Status on File Code Status Date Activated Date Inactivated Comments Full Code 06/08/2019 11:30 AM 01/17/2020 7:58 AM Latest Code Status on File Code Status Date Activated Date Inactivated Comments Full Code 06/08/2019 11:30 AM 01/17/2020 7:58 AM Latest Code Status on File Code Status Date Activated Date Inactivated Comments Full Code 06/08/2019 11:30 AM 01/17/2020 7:58 AM Latest Code Status on File Code Status Date Activated Date Inactivated Comments Full Code 06/08/2019 11:30 AM 01/17/2020 7:58 AM Health Concerns Infection Onset Date Last Indicated Resolved Time COVID-19 Rule-Out 05/23/2022 05/23/2022 Infection Onset Date Last Indicated Resolved Time COVID-19 Rule-Out 05/23/2022 05/23/2022 05/23/2022 9:20 PM EST Reason for Referral Specialty Diagnoses / Procedures Referred By Panda t Referred To Contact [facility] Diagnoses Chronic bilateral low back pain with bilateral sciatica Procedures CONSULT TO PHYSICAL THERAPY PHYSICAL THERAPY EVALUATION HIGH COMPLEX 45 MINS Podlogar, SELENE Capellan.COMMISSARY HELPER [address] [place] [address] [facility] [address] [address] Referral ID Status Reason Start Date Expiration Date Visits Requested Visits Authorized [id number] Authorized PCP Requested Referral Auto-Generate d Referral 11/02/2022 11/02/2023 99 99 Specialty Diagnoses / Procedures Referred By Contac t Referred [facility] Diagnoses Essential hypertension, benign Stage 3b chronic kidney disease (HCC) Bilateral leg edema ASHD (arteriosclerotic heart disease) Procedures ECHO ECHO [facility] R-T 2D W/WOM-MODE COMPL SPEC&COLR D PodlogarMarilia APRN.COMMISSARY HELPER [address] [place] [address] [facility] [address] [place] [address] Referral ID Status Reason Start Date Expiration Date Visits Requested Visits Authorized [id number] Authorized Auto-Generat ed Referral 11/02/2022 11/02/2023 1 1 Additional Source Comments (unrecognized sect ion and content) No Status Records FoundNo Status Records FoundNo Status Records Found INFORMATION SOURCE (unrecogn ized section and content) DATE CREATED AUTHOR AUTHOR'S ORGANIZ ATION 01/10/2023 [facility] DATE CREATED AUTHOR AUTHOR'S ORGANIZ ATION 06/30/2023 [facility] Source Comments (unrecognize d section and content) In the event this informatio n is protected by the Federal Confidentiality of Alcohol and Drug Abuse Patient Records regulations: The Federal rules restrict any use of the information to criminally investigate or prosecute any alcohol or drug abuse patient.[facility] the event this information is protected by the Federal Confidentiality of Alcohol and Drug Abuse Patient Records regulations: The Federal rules restrict any use of the information to criminally investigate or prosecute any alcohol or drug abuse patient.[facility] the event this information is protected by the Federal Confidentiality of Alcohol and Drug Abuse Patient Records regulations: The Federal rules restrict any use of the information to criminally investigate or prosecute any alcohol or drug abuse patient.[facility] the event this information is protected by the Federal Confidentiality of Alcohol and Drug Abuse Patient Records regulations: The Federal rules restrict any use of the information to criminally investigate or prosecute any alcohol or drug abuse patient.[facility] Center[facility] the event this information is protected by the Federal Confidentiality of Alcohol and Drug Abuse Patient Records regulations: The Federal rules restrict any use of the information to criminally investigate or prosecute any alcohol or drug abuse patient.[facility] Center[facility] the event this information is protected by the Federal Confidentiality of Alcohol and Drug Abuse Patient Records regulations: The Federal rules restrict any use of the information to criminally investigate or prosecute any alcohol or drug abuse patient.[facility] Center[facility] the event this information is protected by the Federal Confidentiality of Alcohol and Drug Abuse Patient Records regulations: The Federal rules restrict any use of the information to criminally investigate or prosecute any alcohol or drug abuse patient.[facility] Center[facility] the event this information is protected by the Federal Confidentiality of Alcohol and Drug Abuse Patient Records regulations: The Federal rules restrict any use of the information to criminally investigate or prosecute any alcohol or drug abuse patient.[facility] Center[facility] the event this information is protected by the Federal Confidentiality of Alcohol and Drug Abuse Patient Records regulations: The Federal rules restrict any use of the information to criminally investigate or prosecute any alcohol or drug abuse patient.[facility] Center[facility] the event this information is protected by the Federal Confidentiality of Alcohol and Drug Abuse Patient Records regulations: The Federal rules restrict any use of the information to criminally investigate or prosecute any alcohol or drug abuse patient.[facility] Center[facility] the event this information is protected by the Federal Confidentiality of Alcohol and Drug Abuse Patient Records regulations: The Federal rules restrict any use of the information to criminally investigate or prosecute any alcohol or drug abuse patient.[facility] Center[facility] the event this information is protected by the Federal Confidentiality of Alcohol and Drug Abuse Patient Records regulations: The Federal rules restrict any use of the information to criminally investigate or prosecute any alcohol or drug abuse patient.[facility] CenterIn the event this information is protected by the Federal Confidentiality of Alcohol and Drug Abuse Patient Records regulations: The Federal rules restrict any use of the information to criminally investigate or prosecute any alcohol or drug abuse patient.[facility] CenterIn the event this information is protected by the Federal Confidentiality of Alcohol and Drug Abuse Patient Records regulations: The Federal rules restrict any use of the information to criminally investigate or prosecute any alcohol or drug abuse patient.[facility] CenterIn the event this information is protected by the Federal Confidentiality of Alcohol and Drug Abuse Patient Records regulations: The Federal rules restrict any use of the information to criminally investigate or prosecute any alcohol or drug abuse patient.[facility] CenterIn the event this information is protected by the Federal Confidentiality of Alcohol and Drug Abuse Patient Records regulations: The Federal rules restrict any use of the information to criminally investigate or prosecute any alcohol or drug abuse patient.[facility] CenterIn the event this information is protected by the Federal Confidentiality of Alcohol and Drug Abuse Patient Records regulations: The Federal rules restrict any use of the information to criminally investigate or prosecute any alcohol or drug abuse patient.[facility] CenterIn the event this information is protected by the Federal Confidentiality of Alcohol and Drug Abuse Patient Records regulations: The Federal rules restrict any use of the information to criminally investigate or prosecute any alcohol or drug abuse patient.[facility] CenterIn the event this information is protected by the Federal Confidentiality of Alcohol and Drug Abuse Patient Records regulations: The Federal rules restrict any use of the information to criminally investigate or prosecute any alcohol or drug abuse patient.[facility] CenterIn the event this information is protected by the Federal Confidentiality of Alcohol and Drug Abuse Patient Records regulations: The Federal rules restrict any use of the information to criminally investigate or prosecute any alcohol or drug abuse patient.[facility] CenterIn the event this information is protected by the Federal Confidentiality of Alcohol and Drug Abuse Patient Records regulations: The Federal rules restrict any use of the information to criminally investigate or prosecute any alcohol or drug abuse patient.[facility] CenterIn the event this information is protected by the Federal Confidentiality of Alcohol and Drug Abuse Patient Records regulations: The Federal rules restrict any use of the information to criminally investigate or prosecute any alcohol or drug abuse patient.[facility] CenterIn the event this information is protected by the Federal Confidentiality of Alcohol and Drug Abuse Patient Records regulations: The Federal rules restrict any use of the information to criminally investigate or prosecute any alcohol or drug abuse patient.[facility] [facility] CenterIn the event this information is protected by the Federal Confidentiality of Alcohol and Drug Abuse Patient Records regulations: The Federal rules restrict any use of the information to criminally investigate or prosecute any alcohol or drug abuse patient.[facility] CenterIn the event this information is protected by the Federal Confidentiality of Alcohol and Drug Abuse Patient Records regulations: The Federal rules restrict any use of the information to criminally investigate or prosecute any alcohol or drug abuse patient.[facility] CenterIn the event this information is protected by the Federal Confidentiality of Alcohol and Drug Abuse Patient Records regulations: The Federal rules restrict any use of the information to criminally investigate or prosecute any alcohol or drug abuse patient.[facility] CenterIn the event this information is protected by the Federal Confidentiality of Alcohol and Drug Abuse Patient Records regulations: The Federal rules restrict any use of the information to criminally investigate or prosecute any alcohol or drug abuse patient.[facility] CenterIn the event this information is protected by the Federal Confidentiality of Alcohol and Drug Abuse Patient Records regulations: The Federal rules restrict any use of the information to criminally investigate or prosecute any alcohol or drug abuse patient.[facility] CenterIn the event this information is protected by the Federal Confidentiality of Alcohol and Drug Abuse Patient Records regulations: The Federal rules restrict any use of the information to criminally investigate or prosecute any alcohol or drug abuse patient.[facility] CenterIn the event this information is protected by the Federal Confidentiality of Alcohol and Drug Abuse Patient Records regulations: The Federal rules restrict any use of the information to criminally investigate or prosecute any alcohol or drug abuse patient.[facility] CenterIn the event this information is protected by the Federal Confidentiality of Alcohol and Drug Abuse Patient Records regulations: The Federal rules restrict any use of the information to criminally investigate or prosecute any alcohol or drug abuse patient.[facility] CenterIn the event this information is protected by the Federal Confidentiality of Alcohol and Drug Abuse Patient Records regulations: The Federal rules restrict any use of the information to criminally investigate or prosecute any alcohol or drug abuse patient.[facility] CenterIn the event this information is protected by the Federal Confidentiality of Alcohol and Drug Abuse Patient Records regulations: The Federal rules restrict any use of the information to criminally investigate or prosecute any alcohol or drug abuse patient.[facility] CenterIn the event this information is protected by the Federal Confidentiality of Alcohol and Drug Abuse Patient Records regulations: The Federal rules restrict any use of the information to criminally investigate or prosecute any alcohol or drug abuse patient.[facility] CenterIn the event this information is protected by the Federal Confidentiality of Alcohol and Drug Abuse Patient Records regulations: The Federal rules restrict any use of the information to criminally investigate or prosecute any alcohol or drug abuse patient.[facility] CenterIn the event this information is protected by the Federal Confidentiality of Alcohol and Drug Abuse Patient Records regulations: The Federal rules restrict any use of the information to criminally investigate or prosecute any alcohol or drug abuse patient.[facility] CenterIn the event this information is protected by the Federal Confidentiality of Alcohol and Drug Abuse Patient Records regulations: The Federal rules restrict any use of the information to criminally investigate or prosecute any alcohol or drug abuse patient.[facility] CenterIn the event this information is protected by the Federal Confidentiality of Alcohol and Drug Abuse Patient Records regulations: The Federal rules restrict any use of the information to criminally investigate or prosecute any alcohol or drug abuse patient.[facility] CenterIn the event this information is protected by the Federal Confidentiality of Alcohol and Drug Abuse Patient Records regulations: The Federal rules restrict any use of the information to criminally investigate or prosecute any alcohol or drug abuse patient.[facility] CenterIn the event this information is protected by the Federal Confidentiality of Alcohol and Drug Abuse Patient Records regulations: The Federal rules restrict any use of the information to criminally investigate or prosecute any alcohol or drug abuse patient.[facility] CenterIn the event this information is protected by the Federal Confidentiality of Alcohol and Drug Abuse Patient Records regulations: The Federal rules restrict any use of the information to criminally investigate or prosecute any alcohol or drug abuse patient.[facility] CenterIn the event this information is protected by the Federal Confidentiality of Alcohol and Drug Abuse Patient Records regulations: The Federal rules restrict any use of the information to criminally investigate or prosecute any alcohol or drug abuse patient.[facility] CenterIn the event this information is protected by the Federal Confidentiality of Alcohol and Drug Abuse Patient Records regulations: The Federal rules restrict any use of the information to criminally investigate or prosecute any alcohol or drug abuse patient.[facility] CenterIn the event this information is protected by the Federal Confidentiality of Alcohol and Drug Abuse Patient Records regulations: The Federal rules restrict any use of the information to criminally investigate or prosecute any alcohol or drug abuse patient.[facility] CenterIn the event this information is protected by the Federal Confidentiality of Alcohol and Drug Abuse Patient Records regulations: The Federal rules restrict any use of the information to criminally investigate or prosecute any alcohol or drug abuse patient.[facility] Reason for Visit (unrecogniz ed section and content) Specialty Diagnoses / Procedures Referred By Contac t Referred To Contact [facility] Diagnoses Chronic bilateral low back pain with bilateral sciatica Procedures CONSULT TO PHYSICAL THERAPY PHYSICAL THERAPY EVALUATION HIGH COMPLEX 45 MINS PodlogarMarilia APRN.CNP [address] [place] [address] [facility] [address] [address] Referral ID Status Reason Start Date Expiration Date Visits Requested Visits Authorized [id number] Authorized PCP Requested Referral Auto-Generate d Referral 11/02/2022 11/02/2023 99 99 Reason Comments Physical Therapy Specialty Diagnoses / Procedures Referred By Contac t Referred To Contact [facility] Diagnoses Chronic bilateral low back pain with bilateral sciatica At high risk for falls Age-related physical debility Procedures CONSULT TO PHYSICAL THERAPY PHYSICAL THERAPY EVALUATION HIGH COMPLEX 45 MINS Agnes Diaz MD [address] [place] [address] [facility] [address] [address] Referral ID Status Reason Start Date Expiration Date Visits Requested Visits Authorized [id number] Authorized PCP Requested Referral Auto-Generate d Referral 12/01/2021 12/01/2022 99 99 Reason Comments PT Eval Reason Comments Patient Question Refill Request Reason Comments Orders Reason Comments Imm/Inj Reason Comments Ear Pain R ear x1 week Reason Comments Results Reason Onset Date Comments Refill Request 12/17/2021 Reason Comments Established Patient Annual neurology exa m; MARTIN Reason Onset Date Comments Population Health Navigation Outreach 04/11/2022 ACO MIKI PCSA Reason Comments Medicare Wellness Exam Reason Comments Sinus Problem sinus pressure, drai nage, sore throat x 4 days Reason Comments Medication Request Reason Onset Date Comments Refill Request 05/11/2022 Refill Request 08/08/2022 Reason Comments F/U 6 Month Reason Onset Date Comments Refill Request 02/07/2023 Reason Onset Date Comments Refill Request 03/07/2023 Reason Onset Date Comments Population Health Navigation Outreach 03/13/2023 ACO CARE GAPS Reason Comments Refill Request Reason Comments Follow Up 1 month Care Teams (unrecognized sec tion and content) General Cleaner Relationship Specialty Start Date End Date Agnes Diaz MD [address] [place], [place] [address] PCP - General Family Practice 01/12/21 Scott Pal MD [address] [phone] Referring Orthopedics 06/03/19 Scott Pal MD [address] [phone] Home Care Physician Orthopedics 06/03/19 Caroline Fitzgerald, PT [address] [place], [place] [id number] Salvage Machine Operator Acute Care 06/07/19 John Garcia MD [address], [place] [place] [address] Primary Staff Physician Cardiology 07/17/18 General Cleaner Relationship Specialty Start Date End Date Agnes Diaz MD [address] [place], [place] [id number] PCP - General Family Practice 01/12/21 Scott Pal MD [address] [phone] Referring Orthopedics 06/03/19 Scott Pal MD [address] [phone] Home Care Physician Orthopedics 06/03/19 Caroline Fitzgerald, PT [address] [place] [address] Salvage Machine Operator Acute Care 06/07/19 John Garcia MD [address], [place] [place] [address] Primary Staff Physician Cardiology 07/17/18 General Cleaner Relationship Specialty Start Date End Date Agnes Diaz MD [address] [place], [place] [id number] PCP - General Family Practice 01/12/21 Scott Pal MD [facility] [address] [address] Referring Orthopedics 06/03/19 Scott Pal MD [facility] [address] [address] Home Care Physician Orthopedics 06/03/19 Caroline Fitzgerald, PT [address] [place] [address] Salvage Machine Operator Acute Care 06/07/19 John Garcia MD [address], [place] [place] [address] Primary Staff Physician Cardiology 07/17/18 General Cleaner Relationship Specialty Start Date End Date Agnes Diaz MD [address] [place] [address] PCP - General Family Practice 01/12/21 Scott Pal MD [facility] [address] [address] Referring Orthopedics 06/03/19 Scott Pal MD [facility] [address] [address] Home Care Physician Orthopedics 06/03/19 Caroline Fitzgerald, PT [address] [place] [address] Salvage Machine Operator Acute Care 06/07/19 John Garcia MD [address], [place] [place] [address] Primary Staff Physician Cardiology 07/17/18 General Cleaner Relationship Specialty Start Date End Date Agnes Diaz MD [address] [place], [place] 173491 PCP - General Family Practice 01/12/21 Scott Pal MD [address] [address] Referring Orthopedics 06/03/19 Scott Pal MD [address] [address] Home Care Physician Orthopedics 06/03/19 Caroline Fitzgerald, PT [address] [place] [address] Salvage Machine Operator Acute Care 06/07/19 John Garcia MD [address], [place] [place] [address] Primary Staff Physician Cardiology 07/17/18 General Cleaner Relationship Specialty Start Date End Date Agnes Diaz MD [address] [place] [address] PCP - General Family Practice 01/12/21 Scott Pal MD [address] [address] Referring Orthopedics 06/03/19 Scott Pal MD [address] [address] Home Care Physician Orthopedics 06/03/19 Caroline Fitzgerald, PT [address] [place] [address] Salvage Machine Operator Acute Care 06/07/19 John Garcia MD [address], [address] [place] [address] Primary Staff Physician Cardiology 07/17/18 General Cleaner Relationship Specialty Start Date End Date Agnes Diaz MD [address] [place], [place] 440921 PCP - General Family Practice 01/12/21 Scott Pal MD [address] [address] Referring Orthopedics 06/03/19 Scott Pal MD [address] [address] Home Care Physician Orthopedics 06/03/19 Caroline Fitzgerald, PT [address] [place] [address] Salvage Machine Operator Acute Care 06/07/19 John Garcia MD [address], [address] [place] [address] Primary Staff Physician Cardiology 07/17/18 General Cleaner Relationship Specialty Start Date End Date Agnes Diaz MD [address] [place] [address] PCP - General Family Practice 01/12/21 Scott Pal MD [address] [address] Referring Orthopedics 06/03/19 Scott Pal MD [address] [address] Home Care Physician Orthopedics 06/03/19 Caroline Fitzgerald, PT [address] [place] [address] Salvage Machine Operator Acute Care 06/07/19 John Garcia MD [address], [address] [place] [address] Primary Staff Physician Cardiology 07/17/18 General Cleaner Relationship Specialty Start Date End Date Agnes Diaz MD [address] [place] [address] PCP - General Family Practice 01/12/21 Scott Pal MD [address] [address] Referring Orthopedics 06/03/19 Scott Pal MD [address] [place] [address] Home Care Physician Orthopedics 06/03/19 Caroline Fitzgerald, PT [address] [place] [address] Salvage Machine Operator Acute Care 06/07/19 John Garcia MD [address], [address] [place] [address] Primary Staff Physician Cardiology 07/17/18 General Cleaner Relationship Specialty Start Date End Date Agnes Diaz MD [address] [place] [address] PCP - General Family Practice 01/12/21 Scott Pal MD [address] [address] Referring Orthopedics 06/03/19 Scott Pal MD [address] [address] Home Care Provider Orthopedics 06/03/19 Caroline Fitzgerald, PT [address] [place] [address] Salvage Machine Operator Acute Care 06/07/19 John Garcia MD [address], [place] [place] [address] Primary Staff Physician Cardiology 07/17/18 General Cleaner Relationship Specialty Start Date End Date Agnes Diaz MD [address] [place], [place] [id number] PCP - General Family Medicine 01/12/21 Scott Pal MD [address] [address] Referring Orthopedics 06/03/19 Scott Pal MD [address] [address] Home Care Provider Orthopedics 06/03/19 Caroline Fitzgerald, PT [address] [place] [address] Salvage Machine Operator Acute Care 06/07/19 John Garcia MD [address], Desk [address] [place], [place] 1166[address] Primary Staff Physician Cardiology 07/17/18 General Cleaner Relationship Specialty Start Date End Date Agnes Diaz MD [address] [place], [place] 108871 PCP - General Family Medicine 01/12/21 Scott Pal MD [address] [address] Referring Orthopedics 06/03/19 Scott Pal MD [address] [address] Home Care Provider Orthopedics 06/03/19 Caroline Fitzgerald, PT [address] [place] [address] Salvage Machine Operator Acute Care 06/07/19 John Garcia MD [address], [address]k [address] [place] [address] Primary Staff Physician Cardiology 07/17/18 General Cleaner Relationship Specialty Start Date End Date Agnes Diaz MD [address] [place], [place] [id number] PCP - General Family Medicine 01/12/21 Scott Pal MD [address] [address] Referring Orthopedics 06/03/19 Scott Pal MD [address] [address] Home Care Provider Orthopedics 06/03/19 Caroline Fitzgerald, PT [address] [place] [address] Salvage Machine Operator Acute Care 06/07/19 John Garcia MD [address], Desk [address] [place], [place] 6194195 Primary Staff Physician Cardiology 07/17/18 General Cleaner Relationship Specialty Start Date End Date Agnes Diaz MD [address] [place], [place] [id number] PCP - General Family Medicine 01/12/21 Scott Pal MD [address] [address] Referring Orthopedics 06/03/19 Scott Pal MD [address] [address] Home Care Provider Orthopedics 06/03/19 Caroline Fitzgerald, PT [address] [place] [address] Salvage Machine Operator Acute Care 06/07/19 John Garcia MD [address], Desk [address] [place], [place] [id number] Primary Staff Physician Cardiology 07/17/18 General Cleaner Relationship Specialty Start Date End Date Agnes Diaz MD [address] [place], [place] [id number] PCP - General Family Medicine 01/12/21 Scott Pal MD [address] [address] Referring Orthopedics 06/03/19 Scott Pal MD [address] [address] Home Care Provider Orthopedics 06/03/19 Caroline Fitzgerald, PT [address] [place] [address] Salvage Machine Operator Acute Care 06/07/19 John Garcia MD [address], Desk [address] [place], [place] [id number] Primary Staff Physician Cardiology 07/17/18 General Cleaner Relationship Specialty Start Date End Date Agnes Diaz MD [address] [place], [place] [id number] PCP - General Family Medicine 01/12/21 Scott Pal MD [address] [address] Referring Orthopedics 06/03/19 Scott Pal MD [address] [address] Home Care Provider Orthopedics 06/03/19 Caroline Fitzgerald, PT [address] [place] [address] Salvage Machine Operator Acute Care 06/07/19 John Garcia MD [address], Desk [address] [place], [place] 1223995 Primary Staff Physician Cardiology 07/17/18 General Cleaner Relationship Specialty Start Date End Date Agnes Diaz MD [address] [place] [address] PCP - General Family Medicine 01/12/21 Scott Pal MD [address] [address] Referring Orthopedics 06/03/19 Scott Pal MD [address] [address] Home Care Provider Orthopedics 06/03/19 Caroline Fitzgerald, PT [address] [place] [address] Salvage Machine Operator Acute Care 06/07/19 John Garcia MD [address], Desk [address] [place], [place] 1362195 Primary Staff Physician Cardiology 07/17/18 General Cleaner Relationship Specialty Start Date End Date Agnes Diaz MD [address] [place] [address] PCP - General Family Medicine 01/12/21 Scott Pal MD [address] [place] [address] Referring Orthopedics 06/03/19 Scott Pal MD [address] [place] [address] Home Care Provider Orthopedics 06/03/19 Caroline Fitzgerald, PT [address] [place] [address] Salvage Machine Operator Acute Care 06/07/19 John Garcia MD [address], [address] [place] [address] Primary Staff Physician Cardiology 07/17/18 General Cleaner Relationship Specialty Start Date End Date Agnes Diaz MD [address] [place] [address] PCP - General Family Medicine 01/12/21 Scott Pal MD [address] [place] [address] Referring Orthopedics 06/03/19 Scott Pal MD [address] [place] [address] Home Care Provider Orthopedics 06/03/19 Caroline Fitzgerald, PT [address] [place], [place] [phone] Salvage Machine Operator Acute Care 06/07/19 John Garcia MD [address], [address] [place] [address] Primary Staff Physician Cardiology 07/17/18 General Cleaner Relationship Specialty Start Date End Date Agnes Diaz MD [address] [place] [address] PCP - General Family Medicine 01/12/21 Scott Pal MD [address] [address] Referring Orthopedics 06/03/19 Scott Pal MD [address] [address] Home Care Provider Orthopedics 06/03/19 Caroline Fitzgerald, PT [address] [place] [address] Salvage Machine Operator Acute Care 06/07/19 John Garcia MD [address], [facility] [address] [place] [address] Primary Staff Physician Cardiology 07/17/18 General Cleaner Relationship Specialty Start Date End Date Agnes Diaz MD [address] [place] [address] PCP - General Family Medicine 01/12/21 Scott Pal MD [address] [address] Referring Orthopedics 06/03/19 Sctot Pal MD [address] [address] Home Care Provider Orthopedics 06/03/19 Caroline Fitzgerald, PT [address] [place] [address] Salvage Machine Operator Acute Care 06/07/19 John Garcia MD [address], [place] [place] [address] Primary Staff Physician Cardiology 07/17/18 General Cleaner Relationship Specialty Start Date End Date Agnes Diaz MD [address] [place], [place] 072031 PCP - General Family Medicine 01/12/21 Scott Pal MD [address] [place] [address] [phone] Referring Orthopedics 06/03/19 Scott Pal MD [address] [place] [address] Home Care Provider Orthopedics 06/03/19 Caroline Fitzgerald, PT [address] [place] [address] Salvage Machine Operator Acute Care 06/07/19 John Garcia MD [address], [address] [place] [address] Primary Staff Physician Cardiology 07/17/18 General Cleaner Relationship Specialty Start Date End Date Agnes Diaz MD [address] [place], [place] 312401 PCP - General Family Medicine 01/12/21 Scott Pal MD [address] [address] Referring Orthopedics 06/03/19 Scott Pal MD [address] [address] Home Care Provider Orthopedics 06/03/19 Caroline Fitzgerald, PT [address] [place] [address] Salvage Machine Operator Acute Care 06/07/19 John Garcia MD [address], [place] [place] [address] Primary Staff Physician Cardiology 07/17/18 General Cleaner Relationship Specialty Start Date End Date Agnes Diaz MD [address] [place] [address] PCP - General Family Medicine 01/12/21 Scott Pal MD [address] [address] Referring Orthopedics 06/03/19 Scott Pal MD [address] [address] Home Care Provider Orthopedics 06/03/19 Caroline Fitzgerald, PT [address] [place] [address] Salvage Machine Operator Acute Care 06/07/19 John Garcia MD [address], [place] [place] [address] Primary Staff Physician Cardiology 07/17/18 General Cleaner Relationship Specialty Start Date End Date Agnes Diaz MD [address] [place] [address] PCP - General Family Medicine 01/12/21 Scott Pal MD [address] [address] Referring Orthopedics 06/03/19 Scott Pal MD [address] [address] Home Care Provider Orthopedics 06/03/19 Caroline Fitzgerald, PT [address] [place], [place] 8296431 Salvage Machine Operator Acute Care 06/07/19 John Garcia MD [address], Desk [address] [place], [place] 04385[address] Primary Staff Physician Cardiology 07/17/18 General Cleaner Relationship Specialty Start Date End Date Agnes Diaz MD [address] [place] [address] PCP - General Family Medicine 01/12/21 Scott Pal MD [address] [address] Referring Orthopedics 06/03/19 Scott Pal MD [address] [address] Home Care Provider Orthopedics 06/03/19 Caroline Fitzgerald, PT [address] [place], [place] [phone] Salvage Machine Operator Acute Care 06/07/19 John Garcia MD [address], [place] [place] [address] Primary Staff Physician Cardiology 07/17/18 General Cleaner Relationship Specialty Start Date End Date Agnes Diaz MD [address] [place] [address] PCP - General Family Medicine 01/12/21 Scott Pal MD [address] [address] Referring Orthopedics 06/03/19 Scott Pal MD [address] [place] [address] Home Care Provider Orthopedics 06/03/19 Caroline Fitzgerald, PT [address] [place] [address] Salvage Machine Operator Acute Care 06/07/19 John Garcia MD [address] [place] [place] [address] Primary Staff Physician Cardiology 07/17/18 General Cleaner Relationship Specialty Start Date End Date Agnes Diaz MD [address] [place] [address] PCP - General Family Medicine 01/12/21 Scott Pal MD [address] [address] Referring Orthopedics 06/03/19 Scott Pal MD [address] [address] Home Care Provider Orthopedics 06/03/19 Caroline Fitzgerald, PT [address] [place] [address] Salvage Machine Operator Acute Care 06/07/19 John Garcia MD [address], [place] [place] [address] Primary Staff Physician Cardiology 07/17/18 General Cleaner Relationship Specialty Start Date End Date Agnes Diaz MD [address] [place], [place] 620261 PCP - General Family Medicine 01/12/21 Scott Pal MD [address] [address] Referring Orthopedics 06/03/19 Scott Pal MD [address] [address] Home Care Provider Orthopedics 06/03/19 Caroline Fitzgerald, PT [address] [place] [address] Salvage Machine Operator Acute Care 06/07/19 John Garcia MD [address], [place] [place] [address] Primary Staff Physician Cardiology 07/17/18 General Cleaner Relationship Specialty Start Date End Date Agnes Diaz MD [address] [place] [address] PCP - General Family Medicine 01/12/21 Scott Pal MD [address] [address] Referring Orthopedics 06/03/19 Scott Pal MD [address] [address] Home Care Provider Orthopedics 06/03/19 Caroline Fitzgerald, PT [address] [place] [address] Salvage Machine Operator Acute Care 06/07/19 John Garcia MD [address], Desk [address] [place], [place] [id number] Primary Staff Physician Cardiology 07/17/18 General Cleaner Relationship Specialty Start Date End Date Agnes Diaz MD [address] [place] [address] PCP - General Family Medicine 01/12/21 Scott Pal MD [address] [address] Referring Orthopedics 06/03/19 Scott Pal MD [address] [address] Home Care Provider Orthopedics 06/03/19 Caroline Fitzgerald, PT [address] [place] [address] Salvage Machine Operator Acute Care 06/07/19 John Garcia MD [address], Desk [address] [place], [place] [id number] Primary Staff Physician Cardiology 07/17/18 General Cleaner Relationship Specialty Start Date End Date Agnes Diaz MD [address] [place] [address] PCP - General Family Medicine 01/12/21 Scott Pal MD [address] [place] [id number] Referring Orthopedics 06/03/19 Scott Pal MD [address] [place] [id number] Home Care Provider Orthopedics 06/03/19 Caroline Fitzgerald, PT [address] [place] [address] Salvage Machine Operator Acute Care 06/07/19 John Garcia MD [address] [place] [place] [address] Primary Staff Physician Cardiology 07/17/18 General Cleaner Relationship Specialty Start Date End Date Agnes Diaz MD [address] [place] [address] PCP - General Family Medicine 01/12/21 Scott Pal MD [address] [place] [id number] Referring Orthopedics 06/03/19 Scott Pal MD [address] [place] [id number] Home Care Provider Orthopedics 06/03/19 Caroline Fitzgerald, PT [address] [place], [place] [phone] Salvage Machine Operator Acute Care 06/07/19 John Garcia MD [address], [place] [address] [place] [address] Primary Staff Physician Cardiology 07/17/18 General Cleaner Relationship Specialty Start Date End Date Agnes Diaz MD [address] [place], [place] [id number] PCP - General Family Medicine 01/12/21 Scott Pal MD [address] [phone] Referring Orthopedics 06/03/19 Scott Pal MD [address] [phone] Home Care Provider Orthopedics 06/03/19 John Garcia MD [address], [place] [address] [place] [address] Primary Staff Physician Cardiology 07/17/18 General Cleaner Relationship Specialty Start Date End Date Agnes Diaz MD [address] [place] [address] PCP - General Family Medicine 01/12/21 Scott Pal MD [address] [phone] Referring Orthopedics 06/03/19 Scott Pal MD [address] [address] Home Care Provider Orthopedics 06/03/19 John Garcia MD [address], [place] [place] [address] Primary Staff Physician Cardiology 07/17/18 FOR RECORDS PERTAINING TO PATIENTS WHO ARE OR HAVE BEEN ENROLLED IN A CHEMICAL DEPENDENCY/SUBSTANCEABUSE PROGRAM, SOME INFORMATION MAY BE OMITTED. This clinical summary was aggregated from multiple sources. Caution should be exercised in using it in the provision of clinical care. This summary normalizes information from multiple sources, and as a consequence, information in this document may materially change the coding, format and clinical context of patient data. In addition, data may be omitted in some cases. CLINICAL DECISIONS SHOULD BE BASED ON THE PRIMARY CLINICAL RECORDS. [facility]. provides no warranty or guarantee of the accuracy or completeness of information in this document.
== END | disposition home or self-care (01) ==
LOC: MRI 07:46
PROVIDERS: PCP Family Medicine; Referring Provider Anesthesiology Pain Medicine; Visit Provider Anesthesiology Pain Medicine
DX: M51.37 Other intervertebral disc degeneration, lumbosacral region (principal)
CPT/HCPCS: 72148

== ENCOUNTER 2023-10-22 09:12 | Emergency (ER) | payer MEDICARE, OTHER, SELFPAY ==
[2023-10-22] VITALS (21 sets, daily range): BP systolic 93–157; BP diastolic 63–97; PULSE 67–88; RESP 12–26; TEMP 36–36.7; O2SAT 87–97; BMI 41.8
--- NOTE | 2023-10-22 09:22 | CT_ITS ---
STUDY: CT BRAIN WITHOUT CONTRAST REASON FOR EXAM: Male, 78 years old. dizzy and lightheaded, htn RADIATION DOSAGE (If Supplied By Facility): CTDIvol = ( 44.99 ) mGy, DLP = ( 812.98 ) mGycm TECHNIQUE: Transaxial CT imaging of the brain was performed without administration of intravenous contrast material. Individualized dose optimization techniques were used for this CT. COMPARISON: None. FINDINGS: Normal soft tissue structures. Normal calvarium. There is mild cerebral atrophy with widening of the extra-axial spaces and ventricular dilatation. There are areas of decreased attenuation within the white matter tracts of the supratentorial brain, consistent with microvascular disease changes. Normal basal ganglia and thalami. Normal brainstem. Normal cerebellum. No extra-axial fluid collection or hydrocephalus or midline shift is present. There is no intracranial hemorrhage. There are no findings of an acute ischemic infarction. Normal visualized paranasal sinuses. CT/Brain/Head without Contrast IMPRESSION: Chronic involutional changes of the brain. Electronically Signed: Vasile Mendez MD at 10:15 EDT ,
--- NOTE | 2023-10-22 09:22 | EKG12_ITS ---
Test Reason : Blood Pressure : / mmHG Vent. Rate : 081 BPM Atrial Rate : 081 BPM P-R Int : 176 ms QRS Dur : 086 ms QT Int : 392 ms P-R-T Axes : 056 016 -14 degrees QTc Int : 455 ms Normal sinus rhythm NSST CHANGES Abnormal ECG Confirmed by John Sheehan ([id number]), business editor SEAN DALTON ([id number]) on 10/24/2023 8:02:19 AM Referred By: Confirmed By:John Sheehan
--- NOTE | 2023-10-22 09:23 | EDS_ITS ---
HPI History of Present Illness Chief Complaint: Dizziness Informant: patient Onset/Context/Timing Onset: Today Narrative Narrative: Patient presents secondary to dizziness and lightheadedness. Patient states symptoms were present when he got up this morning. He is also been sweating. He denies headache, chest pain, or abdominal pain. He did feel as if he may pass out after coming back up from the basement this morning so he called EMS. Patient did take his morning medications. He denies any recent medication changes. [facility] Medical History (Updated 10/22/23 @ 13:[address] Ana Aragon MD) High cholesterol Hx of gastroesophageal reflux (GERD) Hypertension Hypothyroidism Home Medications ?Medication ?Instructions ?Recorded ?Last Taken ?Type lisinopril 40 mg tablet 40 mg PO DAILY 01/31/13 Unknown History levothyroxine 100 mcg tablet 100 mcg PO DAILY 09/04/16 09/04/16 06:00 History atorvastatin 40 mg tablet 40 mg PO QHS ##90 09/05/16 Unknown Rx gabapentin 300 mg capsule 300 mg PO DAILY 10/22/23 Unknown History metoprolol succinate 50 mg 50 mg PO DAILY 10/22/23 Unknown History tablet,extended release 24 hr Allergy/AdvReac Type Severity Reaction Status Date / Time azithromycin (From Zithromax) Allergy Itching Verified 10/22/23 16:57 Social History Smoking Status: Never smoker ROS ROS ED Constitutional Constitutional ED: Reports sweats; Denies chills or fever(s) Eyes Eyes: Denies change in vision or discharge from eye(s) ENT ENT ED: Denies discharge from eye(s), rhinorrhea or sore throat Cardiovascular Cardiovascular: Denies chest pain or palpitations Respiratory/Chest Respiratory/Chest: Denies cough or dyspnea Gastrointestinal Gastrointestinal: Denies abdominal pain, diarrhea, nausea or vomiting Genitourinary Genitourinary ED: Denies dysuria Musculoskeletal Musculoskeletal: Reports back pain; Denies extremity pain Integumentary Denies Abrasions or rash Neurologic Neurologic: Reports weakness; Denies headache(s) Psychiatric Psychiatric: Denies anxiety or depression Allergic/Immunologic Allergic/Immunologic ED: Denies lip swelling or urticaria EXAM Physical Exam Const Vital Signs: 10/22/23 09:13 10/22/23 10:06 10/22/23 10:06 Temperature 96.8 F L Temperature Source Temporal Pulse Rate 85 Respiratory Rate 18 Blood Pressure 133/85 H Blood Pressure Mean 101 Pulse Ox 91 87 92 Oxygen Delivery Method Room Air Room Air Nasal Cannula Oxygen Flow Rate (L/min) 2 10/22/23 11:57 10/22/23 11:59 10/22/23 14:00 Temperature Temperature Source Pulse Rate 67 71 Respiratory Rate 20 H 12 Blood Pressure 133/88 H 157/97 H Blood Pressure Mean 103 117 Pulse Ox 90 93 94 Oxygen Delivery Method Room Air Nasal Cannula Room Air Oxygen Flow Rate (L/min) 2 10/22/23 16:00 Temperature Temperature Source Pulse Rate 74 Respiratory Rate 16 Blood Pressure 139/92 H Blood Pressure Mean 107 Pulse Ox 97 Oxygen Delivery Method Nasal Cannula Oxygen Flow Rate (L/min) 2 Positive well nourished and well developed General Appearance ED: well developed HEENT Reports moist mucous membranes Eyes EOMs intact bilaterally Chest Wall inspection of chest normal and palpation of chest normal Resp normal respiratory effort and clear to auscultation bilaterally Cardio regular rate and regular rhythm GI non-tender Auscultation: normoactive bowel sounds Palpation: soft Extremity normal to inspection Neuro oriented x3 Neuro Narrative: No focal neurologic deficit. Psych mental status grossly normal Skin no rashes or lesions noted MDM MDM MDM Narrative Medical decision making narrative: Patient present telemetry monitor. IV line initiated. EKG obtained to evaluate for cardiac arrhythmia/ischemia. Labwork obtained to evaluate for leukocytosis, anemia, and electrolyte derangement. Patient given IV fluids. CT scan of the head obtained to evaluate for any acute intracranial abnormality. Chest x-ray obtained to evaluate for acute lung pathology, cardiac size, or mediastinal abnormality. History & Record Review Discussion w/independent historian: Patient Lab Data Attestation: I reviewed the patient's lab results. Labs: Laboratory Results - last 24 hr 10/22/23 10/22/23 10/22/23 09:05 11:38 13:38 WBC 9.7 RBC 5.06 Hgb 16.2 Hct 48.2 MCV 95.3 H MCH 32.0 MCHC 33.6 RDW Std Deviation 49.0 H RDW Coeff of Gsiella 14.5 Plt Count 204 MPV 9.6 Immature Gran % (Auto) 0.300 Neut % (Auto) 64.0 Lymph % (Auto) 24.0 Campbell % (Auto) 10.0 Eos % (Auto) 1.2 Baso % (Auto) 0.5 Absolute Neuts (auto) 6.2 Absolute Lymphs (auto) 2.32 Nucleated RBC % 0 PT 14.0 INR 1.1 APTT 27.2 Sodium 140 Potassium 3.5 Chloride 109 H Carbon Dioxide 22.0 Anion Gap 9 BUN 24 H Creatinine 1.81 H Estim Creat Clear Calc 45.29 Est GFR (MDRD) Af Amer 47 L Est GFR (MDRD) Non-Af 39 L BUN/Creatinine Ratio 13.3 Glucose 177 H Calcium 9.0 Total Bilirubin 1.10 H Direct Bilirubin 0.26 AST 23 ALT 28 Alkaline Phosphatase 88 Troponin I High Sens 38 77 Total Protein 7.1 Albumin 3.3 Globulin 3.8 Radiography Chest X-Ray - ED: 1 View, Read by ED Physician, Chronic Changes and No Infiltrates Diagnostic Testing: Clinical Impression(s) from Imaging Studies Brain CT 10/22/23 09:22 IMPRESSION: Chronic involutional changes of the brain. Electronically Signed: Vasile Mendez MD at 10:15 EDT Reading Location ID and State: [facility] / [place] , Service support , Chest X-Ray 10/22/23 09:45 IMPRESSION: Degenerative changes, as described above. No demonstrated acute cardiopulmonary process. Electronically Signed: Vasile Mendez MD at 10:21 EDT , Chest CTA 10/22/23 12:47 IMPRESSION: Saddle pulmonary artery embolus 1. A saddle embolus is present with thrombus in the right main pulmonary artery occupying approximately 50% of the lumen of the vessel and the thrombus on the left occupying approximately 20-30% of the lumen of the vessel. The clot extends into the branching and secondary/peripheral arteries of the right upper, middle, and lower lobes, and the medial aspects of both the left upper and lower lobes. The embolus in the peripheral arteries on the right is nearly occlusive. No demonstrated right heart enlargement or pericardial effusion. 2. Rounded 5.10 cm portion of the pancreatic parenchyma or mass is only seen on the first image of the upper portion of the abdomen which should be evaluated with CT of abdomen to ensure no malignancy is present, see image #1/235 series 2. 3. 9.4 mm lobular nodule with linear radiations extending to the pleural surface in the posterior lateral aspect of the right middle lobe as seen on image 105/235 series 2, is favored to represent fibrotic scarring rather than a parenchymal nodule. This lobular nodule in the right middle lobe was not present on the prior study of September 04, 2016 Follow up according to Fleischner Society''s criteria Fleischner Society 2017 guidelines: Single nodule, <6 mm: Low risk, no routine follow-up. High risk: Optional CT at 12 months. Single nodule 6 to 8 mm, low risk: CT 6-12 months, then consider CT at 18-24 months. High risk: CT at 6-12 months, then CT at 18-24 months. Single nodule > 8mm, low risk: Consider CT at 3 months, PET/CT or tissue sampling. High risk: Consider CT at 3 months, PET/CT or tissue sampling. Multiple nodules <6 mm, low risk: No routine follow-up. High risk: Optional CT at 12 months. Multiple nodules 6-8 and > 8 mm, low risk CT at 3-6 months, then consider CT at 18-24 months. High risk: CT at 3-6 months, then at 18-24 months. Electronically Signed: Vasile Mendez MD at 13:35 EDT Reading Location ID and State: [address] [place] [address] , Service support , ADDENDUM: 10/22/23 [id number] IMPRESSION: Saddle pulmonary artery embolus 1. A saddle embolus is present with thrombus in the right main pulmonary artery occupying approximately 50% of the lumen of the vessel and the thrombus on the left occupying approximately 20-30% of the lumen of the vessel. The clot extends into the branching and secondary/peripheral arteries of the right upper, middle, and lower lobes, and the medial aspects of both the left upper and lower lobes. The embolus in the peripheral arteries on the right is nearly occlusive. No demonstrated right heart enlargement or pericardial effusion. 2. Rounded 5.10 cm portion of the pancreatic parenchyma or mass is only seen on the first image of the upper portion of the abdomen which should be evaluated with CT of abdomen to ensure no malignancy is present, see image #1/235 series 2. 3. 9.4 mm lobular nodule with linear radiations extending to the pleural surface in the posterior lateral aspect of the right middle lobe as seen on image 105/235 series 2, is favored to represent fibrotic scarring rather than a parenchymal nodule. This lobular nodule in the right middle lobe was not present on the prior study of September 04, 2016 Follow up according to Fleischner Society''s criteria Fleischner Society 2017 guidelines: Single nodule, <6 mm: Low risk, no routine follow-up. High risk: Optional CT at 12 months. Single nodule 6 to 8 mm, low risk: CT 6-12 months, then consider CT at 18-24 months. High risk: CT at 6-12 months, then CT at 18-24 months. Single nodule > 8mm, low risk: Consider CT at 3 months, PET/CT or tissue sampling. High risk: Consider CT at 3 months, PET/CT or tissue sampling. Multiple nodules <6 mm, low risk: No routine follow-up. High risk: Optional CT at 12 months. Multiple nodules 6-8 and > 8 mm, low risk CT at 3-6 months, then consider CT at 18-24 months. High risk: CT at 3-6 months, then at 18-24 months. N.B. : The above Results were Read Back by Vasile Mendez MD to Ana Aragon MD, and understanding confirmed on 10/22/2023 13:49:15 (ET). Electronically Signed: Vasile Mendez MD at 13:35 EDT , EKG Initial EKG: Attestation: I personally reviewed and interpreted this EKG as follows: Interpretation: Sinus Rhythm (Sinus 81 with no acute ischemia.) Treatment and Re-Evaluation :: CBC was normal white count 9.7 with a hemoglobin of 16.2. Differential unremarkable. Chemistry studies reveal a BUN of 24 and a creatinine of 1.81. This is increased from prior, however prior values are from 2017. LFTs significant only for a total bili of 1.1. Initial troponin is 38 with a repeat delta troponin of 77. EKG is sinus rhythm with no evidence of acute ischemia. Chest x-ray per my interpretation reveals chronic changes with no focal infiltrate. Radiology interpretation reviewed and agrees. CT scan of the head reveals chronic changes. When I went back to reevaluate the patient I noted the nursing staff had him on 2 L of oxygen. They stated that when he fell asleep his oxygen saturation dropped to 85%. He normally wears CPAP at night for sleep apnea. Patient was ambulated in the emergency room. He states overall he felt well. His O2 sats were in the high 80s with ambulation. In light of this, I did choose to pursue a CTA of the chest. CTA reveals a saddle embolus with thrombus in the right main pulmonary artery occupying 50% of the lumen of the vessel and thrombus in the left occupying approximately 20 to 30% of the lumen. Clot does extend into the branches. No evidence of heart strain. Of note, a 5.1 cm pancreatic lesion is also noted that we does require further workup. When I discussed the blood clots with the patient, he does now state that for the past 2 to 3 weeks he would get short of breath with exertion and that it would get better with rest. Patient is not tachycardic at this time. His O2 sat is in the mid to high 90s on 2 L nasal cannula. Heparin drip has been initiated. I will speak with hospitalist regarding admission. Addendum: Hospitalist was concerned about the large clot burden. I did speak w loly Ellison from vascular surgery. He states that with the patient doing well at this time it would not be unreasonable to keep him here for an echocardiogram. If his echocardiogram shows sign of heart strain he could be transferred to that time. Dr. Ellison will be out of town this week and will not be available for thrombectomy. I spoke with the hospitalist again and they do feel that with the large clot burden patient should be transferred at this time. Patient would like to go to [facility]. I have spoken with pulmonary, medicine, and alumni relations officer at [facility]. They are not sure that he meets requirements to come to the ICU, however if he is being transferred for possible thrombectomy medicine does not feel comfortable excepting him to the floor. They would like a repeat BMP, lactic acid, and troponin at this time. We are to call them back with these values to help better determine where he is to be placed. Patient be signed out to oncoming physician for further observation. Discharge Plan Triage Chief Complaint: Dizziness ED Provider: Ana Aragon Dx/Rx/DC Orders Clinical Impression: Pulmonary emboli Prescriptions: No Action lisinopril 40 MG tablet 40 mg PO DAILY Patient Comments: BLOOD PRESSURE levothyroxine 100 MCG tablet 100 mcg PO DAILY Patient Comments: THYROID atorvastatin 40 MG tablet 40 mg PO QHS Qty: 90 0RF gabapentin 300 mg capsule 300 mg PO DAILY metoprolol succinate 50 mg tablet extended release 24 hr 50 mg PO DAILY Primary Care Provider: Salvador Diaz Referrals: Salvador Diaz MD [Primary Care Provider] - Print Language: Mongolian Disposition Disposition: Acute Care Hospital
[2023-10-22 09:36] LABS: Absolute Lymphocyte Count 2.32 X10^3/uL (0.83-4.51); Absolute Neutrophil Count 6.2 X10^3/uL (2.0-7.7); Basophil# 0.05 X10^3/uL; Basophil% 0.5 % (0-1); Eosinophil# 0.12 X10^3/uL; Eosinophils% 1.2 % (0-5); Hematocrit 48.2 % (40-54); Hemoglobin 16.2 g/dL (13.0-16.5); Lymphocyte # 2.32 X10^3/ul (0.83-4.51); Mean Corp Hgb Conc 33.6 g/dL (32-36); Mean Corpuscular Volume 95.3 fL (80-94); Mean Platelet Vol. 9.6 fl (6.2-12.0); Monocyte# 0.97 X10^3/uL; NRBC Flagged by Analyzer 0 % (0-5); Neutrophil # 6.19 X10^3/uL (2.7-7.7); Platelet Count 204 K/mm3 (150-450); RBC Distribution Width CV 14.5 % (11.6-14.6); Red Blood Count 5.06 M/mm3 (4.6-6.2); White Blood Count 9.7 K/mm3 (4.4-11.0)
--- NOTE | 2023-10-22 09:45 | RAD_ITS ---
STUDY: X-RAY CHEST REASON FOR EXAM: Male, 78 years old. sob TECHNIQUE: 2 AP portable view of the chest. COMPARISON: September 04, 2016 FINDINGS: The lungs are clear and expanded. There is no demonstrated pleural abnormality. Normal size heart. Normal mediastinum and alek. Normal visualized pulmonary arteries. There is atherosclerotic calcification of the aortic arch with tortuosity. There are diffuse degenerative changes of the visualized thoracic spine. Normal visualized ribs, clavicles, and shoulders. There is no demonstrated abnormality of the visualized soft tissue structures of the upper abdomen. RAD/Chest 1 View (Portable) IMPRESSION: Degenerative changes, as described above. No demonstrated acute cardiopulmonary process. Electronically Signed: Vasile Mendez MD at 10:21 EDT ,
[2023-10-22] MEDS: 0.9% Normal Saline (1000mL) 1,000 ML 150 ML IV ×3 (10:06→23:21)
[2023-10-22 10:18] LABS: AST(SGOT) 23 U/L (15-37); Alanine Aminotransfer ALT/SGPT 28 U/L (16-61); Albumin, Serum 3.3 g/dL (3.2-5.0); Alkaline Phosphatase 88 U/L (45-117); Anion Gap 9 (5-15); BUN 24 mg/dL (7-18); BUN/Creat Ratio 13.3 RATIO (10-20); Bilirubin, Direct 0.26 mg/dL (0.00-0.30); Chloride 109 mmol/L (98-107); Creatinine, Serum 1.81 mg/dL (0.70-1.30); EST Glomerular Filtration Rate 39 mL/min (>60); Est Glom Filt Rate - Afr Amer 47 mL/min (>60); Estimated Creatinine Clearance 45.29 ml/min; Globulin 3.8 g/dL (2.2-4.2); Glucose 177 mg/dL (74-106); Potassium 3.5 mmol/L (3.5-5.1); Protein, Total 7.1 g/dL (6.4-8.2); Sodium Level 140 mmol/L (136-145); Troponin-I HS (w/2H Reflex) 38 pg/mL (3.0-78.0)
[2023-10-22 11:30] LABS: Reflex Troponin-HS? (from REC) Y
[2023-10-22 12:08] LABS: Troponin-I HS 77 pg/mL (3.0-78.0)
--- NOTE | 2023-10-22 12:47 | CT_ITS ---
We are attempting to reach an attending provider to discuss findings. An addendum with communication details will be sent when the communication is complete. STUDY: CTA CHEST REASON FOR EXAM: Male, 78 years old. hypoxia RADIATION DOSAGE (If Supplied By Facility): CTDIvol = ( 17.39 ) mGy, DLP = ( 511.14 ) mGycm TECHNIQUE: The examination was performed with the intravenous administration of IV 100mL [id number]-[id number]. Post-processing of the angiographic images was performed, with multiplanar reformation and 3D reconstruction. Individualized dose optimization techniques were used for this CT. COMPARISON: Chest x-ray dated October 22, 2023. CT of the chest dated September 04, 2016 FINDINGS: A saddle embolus is present with thrombus in the right main pulmonary artery occupying approximately 50% of the lumen of the vessel and the thrombus on the left occupying approximately 20-30% of the lumen of the vessel. The clot extends into the branching and secondary/peripheral arteries of the right upper, middle, and lower lobes, and the medial aspects of both the left upper and lower lobes. The embolus in the peripheral arteries on the right is nearly occlusive. No demonstrated right heart enlargement or pericardial effusion. There is atherosclerotic calcification of the aortic arch with tortuosity. There is no demonstrated aortic dissection. Normal heart and pericardium. There are calcifications of the coronary arteries. Normal mediastinum. Normal hilar regions. Normal visualized trachea and bronchi. The lungs are well expanded. 9.4 mm lobular nodule with linear radiations extending to the pleural surface in the posterior lateral aspect of the right middle lobe as seen on image 105/235 series 2, is favored to represent fibrotic scarring rather than a parenchymal nodule. This lobular nodule in the right middle lobe was not present on the prior study of September 04, 2016. Additional fibrotic scarring is seen in the bilateral lung bases and lingula. No demonstrated pulmonary edema or pleural effusion. Normal pleura. Normal chest wall structures. There are degenerative changes of thoracic spine. Rounded 5.10 cm portion of the pancreatic parenchyma or mass is only seen on the first image of the upper portion of the abdomen which should be evaluated with CT of abdomen to ensure no malignancy is present, see image #1/[address]/CTA Chest W/WO Contrast IMPRESSION: Saddle pulmonary artery embolus 1. A saddle embolus is present with thrombus in the right main pulmonary artery occupying approximately 50% of the lumen of the vessel and the thrombus on the left occupying approximately 20-30% of the lumen of the vessel. The clot extends into the branching and secondary/peripheral arteries of the right upper, middle, and lower lobes, and the medial aspects of both the left upper and lower lobes. The embolus in the peripheral arteries on the right is nearly occlusive. No demonstrated right heart enlargement or pericardial effusion. 2. Rounded 5.10 cm portion of the pancreatic parenchyma or mass is only seen on the first image of the upper portion of the abdomen which should be evaluated with CT of abdomen to ensure no malignancy is present, see image #1/235 series 2. 3. 9.4 mm lobular nodule with linear radiations extending to the pleural surface in the posterior lateral aspect of the right middle lobe as seen on image 105/235 series 2, is favored to represent fibrotic scarring rather than a parenchymal nodule. This lobular nodule in the right middle lobe was not present on the prior study of September 04, 2016 Follow up according to Fleischner Society''s criteria Fleischner Society 2017 guidelines: Single nodule, <6 mm: Low risk, no routine follow-up. High risk: Optional CT at 12 months. Single nodule 6 to 8 mm, low risk: CT 6-12 months, then consider CT at 18-24 months. High risk: CT at 6-12 months, then CT at 18-24 months. Single nodule > 8mm, low risk: Consider CT at 3 months, PET/CT or tissue sampling. High risk: Consider CT at 3 months, PET/CT or tissue sampling. Multiple nodules <6 mm, low risk: No routine follow-up. High risk: Optional CT at 12 months. Multiple nodules 6-8 and > 8 mm, low risk CT at 3-6 months, then consider CT at 18-24 months. High risk: CT at 3-6 months, then at 18-24 months. Electronically Signed: Vaisle Mendez MD at 13:35 EDT ,
--- NOTE | 2023-10-22 13:56 | PCM.HP.STD ---
HPI - General HPI Narrative FRAN PAREKH, is a 78 M who presents COUNTS INCLUDE 234 BEDS AT THE [facility] Medical History (Updated 10/22/23 @ 13:[address] Ana Aragon MD) High cholesterol Hx of gastroesophageal reflux (GERD) Hypertension Hypothyroidism Home Medications ?Medication ?Instructions ?Recorded ?Last Taken ?Type lisinopril 40 mg tablet 40 mg PO DAILY 01/31/13 Unknown History amlodipine 5 mg tablet 5 mg PO DAILY 09/04/16 Unknown History levothyroxine 100 mcg tablet 100 mcg PO DAILY 09/04/16 09/04/16 06:00 History niacinamide 500 mg tablet (Niacin 500 mg PO DAILY 09/04/16 Unknown History (niacinamide)) omeprazole magnesium 20 mg 20 mg PO DAILY 09/04/16 Unknown History tablet,delayed release (Prilosec OTC) aspirin 81 mg tablet,delayed 81 mg PO DAILY@0800 ##90 09/05/16 Unknown Rx release atorvastatin 40 mg tablet 40 mg PO QHS ##90 09/05/16 Unknown Rx Allergy/AdvReac Type Severity Reaction Status Date / Time azithromycin (From Zithromax) Allergy Itching Verified 09/04/16 06:59 Social History Smoking Status: Never smoker Vital Signs Vital Signs Vital Signs: 10/22/23 09:13 10/22/23 10:06 10/22/23 10:06 Temperature 96.8 F L Temperature Source Temporal Pulse Rate 85 Respiratory Rate 18 Blood Pressure 133/85 H Blood Pressure Mean 101 Pulse Ox 91 87 92 Oxygen Delivery Method Room Air Room Air Nasal Cannula Oxygen Flow Rate (L/min) 2 10/22/23 11:57 10/22/23 11:59 Temperature Temperature Source Pulse Rate 67 Respiratory Rate 20 H Blood Pressure 133/88 H Blood Pressure Mean 103 Pulse Ox 90 93 Oxygen Delivery Method Room Air Nasal Cannula Oxygen Flow Rate (L/min) 2 Weight Weight: 132.4 kg Body Mass Index (BMI) 41.8 Results Lab / Micro Data 10/22/23 09:05 10/22/23 09:05 Labs: Laboratory Results - last 24 hr 10/22/23 09:05: WBC 9.7, RBC 5.06, Hgb 16.2, Hct 48.2, MCV 95.3 H, MCH 32.0, MCHC 33.6, RDW Std Deviation 49.0 H, RDW Coeff of Gisella 14.5, Plt Count 204, MPV 9.6, Immature Gran % (Auto) 0.300, Neut % (Auto) 64.0, Lymph % (Auto) 24.0, Floyd % (Auto) 10.0, Eos % (Auto) 1.2, Baso % (Auto) 0.5, Absolute Neuts (auto) 6.2, Absolute Lymphs (auto) 2.32, Nucleated RBC % 0, Sodium 140, Potassium 3.5, Chloride 109 H, Carbon Dioxide 22.0, Anion Gap 9, BUN 24 H, Creatinine 1.81 H, Estim Creat Clear Calc 45.29, Est GFR (MDRD) Af Amer 47 L, Est GFR (MDRD) Non-Af 39 L, BUN/Creatinine Ratio 13.3, Glucose 177 H, Calcium 9.0, Total Bilirubin 1.10 H, Direct Bilirubin 0.26, AST 23, ALT 28, Alkaline Phosphatase 88, Troponin I High Sens 38, Total Protein 7.1, Albumin 3.3, Globulin 3.8 10/22/23 11:38: Troponin I High Sens 77 Imaging Radiology Impression Brain CT 10/22/23 09:22 IMPRESSION: Chronic involutional changes of the brain. Electronically Signed: Vasile Mendez MD at 10:15 EDT Reading Location ID and State: [facility] / [place] , Service support , Chest X-Ray 10/22/23 09:45 IMPRESSION: Degenerative changes, as described above. No demonstrated acute cardiopulmonary process. Electronically Signed: Vasile Mendez MD at 10:21 EDT , Chest CTA 10/22/23 12:47 IMPRESSION: Saddle pulmonary artery embolus 1. A saddle embolus is present with thrombus in the right main pulmonary artery occupying approximately 50% of the lumen of the vessel and the thrombus on the left occupying approximately 20-30% of the lumen of the vessel. The clot extends into the branching and secondary/peripheral arteries of the right upper, middle, and lower lobes, and the medial aspects of both the left upper and lower lobes. The embolus in the peripheral arteries on the right is nearly occlusive. No demonstrated right heart enlargement or pericardial effusion. 2. Rounded 5.10 cm portion of the pancreatic parenchyma or mass is only seen on the first image of the upper portion of the abdomen which should be evaluated with CT of abdomen to ensure no malignancy is present, see image #1/235 series 2. 3. 9.4 mm lobular nodule with linear radiations extending to the pleural surface in the posterior lateral aspect of the right middle lobe as seen on image 105/235 series 2, is favored to represent fibrotic scarring rather than a parenchymal nodule. This lobular nodule in the right middle lobe was not present on the prior study of September 04, 2016 Follow up according to Fleischner Society''s criteria Fleischner Society 2017 guidelines: Single nodule, <6 mm: Low risk, no routine follow-up. High risk: Optional CT at 12 months. Single nodule 6 to 8 mm, low risk: CT 6-12 months, then consider CT at 18-24 months. High risk: CT at 6-12 months, then CT at 18-24 months. Single nodule > 8mm, low risk: Consider CT at 3 months, PET/CT or tissue sampling. High risk: Consider CT at 3 months, PET/CT or tissue sampling. Multiple nodules <6 mm, low risk: No routine follow-up. High risk: Optional CT at 12 months. Multiple nodules 6-8 and > 8 mm, low risk CT at 3-6 months, then consider CT at 18-24 months. High risk: CT at 3-6 months, then at 18-24 months. Electronically Signed: Vasile Mendez MD at 13:35 EDT ,
--- NOTE | 2023-10-22 13:57 | NURSING ---
DR TAYLOR FOR DR FRAGOSO
[2023-10-22 13:58] LABS: International Normalized Ratio 1.1; Partial Thromboplast Time 27.2 Seconds (24.1-36.2)
[2023-10-22] MEDS: Heparin Injection (Vial) 5,000 UNIT/ML VIAL 10500 UNIT IV (14:04)
[2023-10-22] MEDS: HEPARIN/D5w 25,000 UNITS 25,000 UNITS/250 ML IV.SOLN. 17 UNITS CONT INF (14:04)
--- NOTE | 2023-10-22 15:16 | NURSING ---
CALLED [facility] ABOUT TRANSFER
--- NOTE | 2023-10-22 16:46 | NURSING ---
[facility] HOSPITALIST FOR DR FRAGOSO
--- NOTE | 2023-10-22 17:18 | NURSING ---
SANDRO, [facility] TRANSFER LINE, [place] ICU DOC FOR DR FRAGOSO
[2023-10-22 18:17] LABS: Troponin-I HS 128 pg/mL (3.0-78.0)
[2023-10-22 18:18] LABS: Lactic Acid 2.3 mmol/L (0.4-1.9)
[2023-10-22 19:33] LABS: BNP,B-Type NATRIURETIC PEPTIDE 293.9 pg/mL (0-100)
[2023-10-22 21:15] LABS: Partial Thromboplast Time > 200.0 Seconds (24.1-36.2)
[2023-10-22 21:45] LABS: Reflex Lactate? Y
[2023-10-22 23:20] LABS: Lactic Acid 1.6 mmol/L (0.4-1.9)
[2023-10-23] VITALS: BP 122/71; PULSE 70; RESP 19; O2SAT 95
== END 2023-10-23 00:32 | disposition short-term general hospital (02) ==
PROVIDERS: Emergency Provider Emergency Medicine; PCP Family Medicine; Visit Provider Emergency Medicine
DX: I26.99 Other pulmonary embolism without acute cor pulmonale (principal); I10 Essential (primary) hypertension; E03.9 Hypothyroidism, unspecified; Z79.899 Other long term (current) drug therapy
CPT/HCPCS: 70450; 71045; 71275; 80048; 80076; 83605; 83880; 84484; 85025; 85610; 85730; 93005; 96360; 96361; 99285; J7030; Q9967; A4216

== ENCOUNTER 2024-01-26 16:58 | Emergency (ER) | payer MEDICARE, OTHER, SELFPAY ==
[2024-01-26] VITALS (7 sets, daily range): BP systolic 110–171; BP diastolic 54–102; PULSE 66–116; RESP 18–27; TEMP 36.4–37.3; O2SAT 95–97; BMI 43.2
--- NOTE | 2024-01-26 18:57 | EDS_ITS ---
HPI History of Present Illness Chief Complaint: Cellulitis [facility] Medical History High cholesterol Hx of gastroesophageal reflux (GERD) Hypertension Hypothyroidism Home Medications ?Medication ?Instructions ?Recorded ?Last Taken ?Type lisinopril 40 mg tablet 40 mg PO DAILY 01/31/13 Unknown History levothyroxine 100 mcg tablet 100 mcg PO DAILY 09/04/16 09/04/16 06:00 History atorvastatin 40 mg tablet 40 mg PO QHS ##90 09/05/16 Unknown Rx gabapentin 300 mg capsule 300 mg PO DAILY 10/22/23 Unknown History metoprolol succinate 50 mg 50 mg PO DAILY 10/22/23 Unknown History tablet,extended release 24 hr sulfamethoxazole 800 1 tab PO BID #14 tabs 01/26/24 Unknown Rx mg-trimethoprim 160 mg tablet (Bactrim DS) Allergy/AdvReac Type Severity Reaction Status Date / Time azithromycin (From Zithromax) Allergy Itching Verified 01/26/24 16:58 Social History Smoking Status: Never smoker EXAM Physical Exam Const Vital Signs: 01/26/24 16:59 01/26/24 18:03 01/26/24 19:03 Temperature 97.6 F L 99.1 F 99.1 F Temperature Source Temporal Oral Oral Pulse Rate 88 81 69 Respiratory Rate 18 18 24 H Blood Pressure 170/102 H 171/85 H 150/73 H Blood Pressure Mean 124 113 98 Pulse Ox 96 95 97 Oxygen Delivery Method Room Air Room Air Room Air 01/26/24 20:00 01/26/24 21:00 01/26/24 22:00 Temperature 99.1 F 99.1 F 99.1 F Temperature Source Oral Oral Oral Pulse Rate 66 74 116 H Respiratory Rate 24 H 22 H 27 H Blood Pressure 155/74 H 158/70 H 110/54 L Blood Pressure Mean 101 99 72 Pulse Ox 96 96 96 Oxygen Delivery Method Room Air Room Air Room Air MDM MDM MDM Narrative Medical decision making narrative: HISTORY OF PRESENT ILLNESS: 78-year-old male presents with concern for outpatient treatment failure for cellulitis. Notes he is finished Keflex and is on doxycycline currently REVIEW OF SYSTEMS: Pertinent positives: Leg pain, redness Pertinent negatives: Fever, vomiting PHYSICAL EXAM: Nursing triage notes reviewed, Vital signs reviewed Constitutional: please see [facility] HENT: MMM Eyes: Pupils equal round and reactive to light, Extraocular muscles intact Neck: No stridor, no JVD, full neck ROM Lungs: Clear to auscultation, No wheezing or rales. No increased work of breathing, no conversational dyspnea, no accessory muscle use, no nasal flaring. No respiratory distress noted Heart: Regular rate and rhythm, No murmurs, No rubs and No gallops, 2+ distal pulses (radial, femoral, posterior tibial) in all extremities Abdomen: Soft, there is no tenderness, rigidity, rebound or guarding, no obvious peritoneal signs, no palpable pulsatile abdominal masses, no auscultated abdominal bruit : No CVAT Extremities: No edema Neuro: No focal neurological deficits, cranial nerves II through XII intact, 5/5 strength in all extremities. Intact sensation to light touch in all extremities, 2+ reflexes bilateral patella tendons. Normal gait. No ataxia. Skin: No rash or lesions noted MEDICAL DECISION MAKING: Chief Complaint: Cellulitis External records reviewed: Reviewed prior hospital records, medications, allergies Factors affecting care: Hypertension, hyperlipidemia [facility] Narrative: The patient was initially hemodynamically stable, afebrile and nontoxic- appearing. Exam without crepitus bullae or signs of necrotizing fasciitis or abscess. I considered the following differential diagnosis: Cellulitis I obtain labs to stratify the patient to determine if he needed inpatient mission ALL IMAGES (IF OBTAINED) HAVE BEEN PERSONALLY REVIEWED AND INTERPRETED BY MY SELF. CBC with no leukocytosis, no anemia or thrombocytopenia BMP with baseline CKD, no signs of metabolic acidosis or endorgan hypoperfusion Lactate is wnl indicating no end-organ hypoperfusion and/or hypoxia. The patient's labs were reassuring. He was not vomiting. He had no immunocompromising states. He is appropriate for discharge home. Will change from Doxy to Bactrim to see if this improves his healing. Strict return precautions were discussed The patient and/or family, caregivers express understanding. The patient and/or family, caregivers agrees with the plan. Shared decision making: I will have a discussion with the patient and or visitors regarding risk/benefits of further testing or admission. They will be made aware of of the risk/benefits inherent in this decision they will be given the opportunity to voice understanding. Total critical care time today provided was at least 0 minutes. This excludes separately billable procedures. Critical care time (if documented) is secondary to the patient having high probability of clinically significant/life threatening deterioration in the patient's condition which required my urgent intervention. Impression: \ 1. Cellulitis 2. CKD Dispo: Discharge home This note was generated with [employer] dictation software. It may contain incorrect words, spelling, and punctuation that were not noted in review of the chart prior to signing. Lab Data Labs: Laboratory Results - last 24 hr 01/26/24 19:35 WBC 10.7 RBC 4.66 Hgb 14.7 Hct 44.4 MCV 95.3 H MCH 31.5 MCHC 33.1 RDW Std Deviation 47.0 H RDW Coeff of Gisella 13.4 Plt Count 282 MPV 8.7 Sodium 140 Potassium 3.6 Chloride 108 H Carbon Dioxide 27.0 Anion Gap 6 BUN 22 H Creatinine 1.53 H Estim Creat Clear Calc 54.51 Est GFR (MDRD) Af Amer 57 L Est GFR (MDRD) Non-Af 47 L BUN/Creatinine Ratio 14.4 Glucose 125 H Lactic Acid 1.8 Calcium 9.2 Discharge Plan Triage Chief Complaint: Cellulitis ED Provider: Leo Hansen Dx/Rx/DC Orders Instructions: Cellulitis Dc Prescriptions: New sulfamethoxazole-trimethoprim [Bactrim DS] 800-160 mg tablet 1 tab PO BID Qty: 14 0RF No Action lisinopril 40 MG tablet 40 mg PO DAILY Patient Comments: BLOOD PRESSURE levothyroxine 100 MCG tablet 100 mcg PO DAILY Patient Comments: THYROID atorvastatin 40 MG tablet 40 mg PO QHS Qty: 90 0RF gabapentin 300 mg capsule 300 mg PO DAILY metoprolol succinate 50 mg tablet extended release 24 hr 50 mg PO DAILY Primary Care Provider: Salvador Diaz Referrals: Salvador Diaz MD [Primary Care Provider] - Activity Restrictions/Additional Instructions: Thank you for trusting us with your care today! Please take Tylenol (2 pills, 650 mg), ibuprofen (2 pills, 400 mg) every 6 hours as needed for pain and fever control. Please stop taking doxycycline and begin taking Bactrim. This should provide improved antimicrobial coverage hopefully improve your symptoms quicker. Please return to the emergency department if your symptoms change or worsen. Please follow with your primary care physician for further outpatient evaluation and management. Print Language: Persian Disposition Disposition: Home, Self Care
[2024-01-26] MEDS: Vancomycin HCl 1,500 MG in 0.9% Normal Saline (500mL Bag) 500 ML 250 MG IV (19:44)
[2024-01-26 19:47] LABS: Hematocrit 44.4 % (40-54); Hemoglobin 14.7 g/dL (13.0-16.5); Mean Corp Hgb Conc 33.1 g/dL (32-36); Mean Corpuscular Hgb 31.5 pg (27.0-32.0); Mean Corpuscular Volume 95.3 fL (80-94); Mean Platelet Vol. 8.7 fl (6.2-12.0); Platelet Count 282 K/mm3 (150-450); RBC Distribution Width CV 13.4 % (11.6-14.6); Red Blood Count 4.66 M/mm3 (4.6-6.2); White Blood Count 10.7 K/mm3 (4.4-11.0)
[2024-01-26 20:11] LABS: Anion Gap 6 (5-15); BUN 22 mg/dL (7-18); BUN/Creat Ratio 14.4 RATIO (10-20); Calcium,Total 9.2 mg/dL (8.5-10.1); Chloride 108 mmol/L (98-107); Creatinine, Serum 1.53 mg/dL (0.70-1.30); EST Glomerular Filtration Rate 47 mL/min (>60); Est Glom Filt Rate - Afr Amer 57 mL/min (>60); Estimated Creatinine Clearance 54.51 ml/min; Glucose 125 mg/dL (74-106); Potassium 3.6 mmol/L (3.5-5.1); Sodium Level 140 mmol/L (136-145)
[2024-01-26 20:24] LABS: Lactic Acid 1.8 mmol/L (0.4-1.9)
--- NOTE | 2024-01-26 22:51 | ED.RN ---
pushed pt in w/c to vehicle to make sure he got in safely.
== END 2024-01-26 22:51 | disposition home or self-care (01) ==
PROVIDERS: Emergency Provider Emergency Medicine; PCP Family Medicine; Visit Provider Emergency Medicine
DX: L03.119 Cellulitis of unspecified part of limb (principal); I12.9 Hypertensive chronic kidney disease with stage 1 through stage 4 chronic kidney disease, or unspecified chronic kidney disease; N18.9 Chronic kidney disease, unspecified; E78.00 Pure hypercholesterolemia, unspecified; E03.9 Hypothyroidism, unspecified; Z88.1 Allergy status to other antibiotic agents; Z79.890 Hormone replacement therapy; Z79.899 Other long term (current) drug therapy
CPT/HCPCS: 80048; 83605; 85027; 96365; 96366; 99283; J7040; J7050; A4216

== ENCOUNTER 2024-03-26 02:00 | Inpatient (IN) | payer MEDICARE, OTHER, SELFPAY ==
[2024-03-26] VITALS (12 sets, daily range): BP systolic 102–143; BP diastolic 51–81; PULSE 62–106; RESP 16–18; TEMP 36.1–37.2; O2SAT 93–97; BMI 41.2
--- NOTE | 2024-03-26 02:29 | CT_ITS ---
INDICATION: fall on thinners COMPARISON: 10/22/[address] Findings: Serial CT axial images through the brain without contrast. BRAIN PARENCHYMA: Diffuse likely chronic periventricular white matter ischemic changes. Moderate diffuse volume loss, however, the ventricles appear to be dilated out of proportion to remaining CSF spaces, without definite obstructing lesion identified. No evidence of intraparenchymal hemorrhage or extra-axial fluid collection. Crowding of the sulci at the vertex. VASCULAR STRUCTURES: Atherosclerotic vascular calcifications. SCALP/REMAINING SOFT TISSUES: Unremarkable. BONES: Frontoethmoid sinus mucosal thickening. Tiny right maxillary sinus retention cyst. Left maxillary sinus mucosal thickening. CT/Brain/Head without Contrast IMPRESSION: Ventricles are dilated out of portion to remaining CSF spaces, without definite obstructing lesion identified. This is unchanged from comparison examination. Although this may represent central volume loss, cannot exclude stable hydrocephalus. In addition, chronic normal pressure hydrocephalus can have a similar appearance, in the appropriate clinical setting, especially given crowding of the sulci at the vertex. Sinus disease. Otherwise, only age-related changes as above, without evidence of acute intracranial hemorrhage in this noncontrast head CT. Electronically Signed: Mario Patel MD at 5:36 EST ,
[2024-03-26 02:38] LABS: Absolute Lymphocyte Count 0.49 X10^3/uL (0.83-4.51); Absolute Neutrophil Count 11.5 X10^3/uL (2.0-7.7); Basophil# 0.03 X10^3/uL; Basophil% 0.2 % (0-1); Eosinophil# 0.01 X10^3/uL; Eosinophils% 0.1 % (0-5); Hematocrit 42.2 % (40-54); Hemoglobin 14.4 g/dL (13.0-16.5); Lymphocyte # 0.49 X10^3/ul (0.83-4.51); Lymphocyte % 3.7 % (19-41); Mean Corp Hgb Conc 34.1 g/dL (32-36); Mean Corpuscular Hgb 32.1 pg (27.0-32.0); Mean Platelet Vol. 9.7 fl (6.2-12.0); Monocyte# 1.16 X10^3/uL; Monocyte% 8.7 % (0-10); NRBC Flagged by Analyzer 0 % (0-5); Neutrophil # 11.47 X10^3/uL (2.7-7.7); Neutrophil % 86.5 % (47-70); POSITIVE DIFFERENTIAL YES; Platelet Count 198 K/mm3 (150-450); RBC Distribution Width CV 13.8 % (11.6-14.6); RBC Distribution Width SD 47.4 fl (35.1-43.9); Red Blood Count 4.49 M/mm3 (4.6-6.2); White Blood Count 13.3 K/mm3 (4.4-11.0)
[2024-03-26] MEDS: Ondansetron 4 MG/2 ML Vial IV (02:40)
[2024-03-26] MEDS: 0.9% Normal Saline (1000mL) 1,000 ML 999 ML IV (02:41)
[2024-03-26 02:50] LABS: International Normalized Ratio 1.1; Prothrombin Time (Protime)PT. 14.4 SECONDS (11.7-14.9)
[2024-03-26 02:51] LABS: Partial Thromboplast Time 25.8 Seconds (24.1-36.2)
--- NOTE | 2024-03-26 02:59 | EDS_ITS ---
HPI History of Present Illness Chief Complaint: Dizziness Informant: patient Narrative Narrative: Patient is a 78-year-old male from home with history of hypothyroidism hypertension hyperlipidemia and previous pulmonary emboli currently on Eliquis. He states that Monday night around 7 or 8 PM he felt dizzy and lost his balance as he stood up from bed and fell into a table. He states he is unsure if he struck his head but he denies any loss of consciousness. He states he was able to crawl to a phone and called his neighbor and his neighbor was able to help him up and get him back in bed. He states Monday morning he awoke and was able to ambulate normally and he went out for lunch and dinner. He states however after eating dinner on Monday night he began to develop bouts of nausea and then this evening had multiple bouts of vomiting. He reports the emesis was the food that was in his stomach and he denies any darkness or blood to it. He states he urinated and it looked slightly pink-tinged. He states that with the symptoms he is unsure if he has developed an infection or this was associated with the fall from the previous night and therefore comes in for evaluation [facility] Medical History High cholesterol Hx of gastroesophageal reflux (GERD) Hypertension Hypothyroidism Home Medications ?Medication ?Instructions ?Recorded ?Last Taken ?Type lisinopril 40 mg tablet 40 mg PO DAILY 01/31/13 Unknown History levothyroxine 100 mcg tablet 100 mcg PO DAILY 09/04/16 09/04/16 06:00 History atorvastatin 40 mg tablet 40 mg PO QHS ##90 09/05/16 Unknown Rx gabapentin 300 mg capsule 300 mg PO DAILY 10/22/23 Unknown History metoprolol succinate 50 mg 50 mg PO DAILY 10/22/23 Unknown History tablet,extended release 24 hr apixaban 5 mg tablet (Eliquis) 5 mg PO BID 03/26/24 Unknown History Allergy/AdvReac Type Severity Reaction Status Date / Time azithromycin (From Zithromax) Allergy Itching Verified 03/26/24 02:00 Social History Smoking Status: Never smoker ROS ROS ED Constitutional Constitutional ED: Denies chills or fever(s) Eyes Eyes: Denies blurry vision or change in vision ENT ENT ED: Denies rhinorrhea or sore throat Cardiovascular Cardiovascular: Reports other Details: Negative syncope ; Denies chest pain, palpitations or racing heartbeat Respiratory/Chest Respiratory/Chest: Denies cough or dyspnea Gastrointestinal Gastrointestinal: Reports nausea and vomiting; Denies abdominal pain or diarrhea Genitourinary Genitourinary ED: Reports hematuria; Denies dysuria or urinary frequency Musculoskeletal Musculoskeletal: Denies back pain, myalgias or neck pain Integumentary Denies rash Neurologic Neurologic: Reports other Details: Positive dizziness ; Denies headache(s) Hematologic/Lymphatic Hematologic/Lymphatic: Reports easy bleeding and easy bruising EXAM Physical Exam Const Vital Signs: 03/26/24 02:01 03/26/24 02:41 03/26/24 04:00 Temperature 98.9 F Temperature Source Oral Pulse Rate 87 85 Pulse Rate [Lying] 88 Pulse Rate [Sitting (for 1 minute prior to obtaining)] 96 Pulse Rate [Standing (for 1 minute prior to obtaining)] 106 H Respiratory Rate 17 18 Blood Pressure 134/65 H 113/63 Blood Pressure [Lying] 122/63 H Blood Pressure [Sitting (for 1 minute prior to obtaining)] 143/81 H Blood Pressure [Standing (for 1 minute prior to obtaining)] 137/77 H Blood Pressure Mean 88 79 Blood Pressure Mean [Lying] 82 Blood Pressure Mean [Sitting (for 1 minute prior to obtaining)] 101 Blood Pressure Mean [Standing (for 1 minute prior to obtaining)] 97 Pulse Ox 93 97 Oxygen Delivery Method Room Air Room Air Positive well nourished and well developed General Appearance ED: well developed; Negative for pallor HEENT Reports dry mucous membranes HEENT Narrative: Normocephalic atraumatic No signs of depressed or basilar skull fracture Mucous membranes are dry and tacky without secondary findings to suggest infection No airway edema or compromise Mouth ED: Yes dry mucous membranes Mouth: dry mucous membranes Eyes PERRL and EOMs intact bilaterally General Eye ED: Negative for scleral icterus Neck supple Neck Narrative: No bony deformity or step-off of the cervical spine no midline tenderness to palpation Chest Wall palpation of chest normal Resp normal respiratory effort and clear to auscultation bilaterally Cardio regular rate and regular rhythm Rate: other Other Details: Heart is regular rate and rhythm Radial and carotid pulses are equal and symmetric GI non-tender, non-distended and no masses GI Narrative: Soft nontender nondistended with hyperactive bowel sounds no voluntary guarding or rigidity or pulsatile mass Auscultation: hyperactive bowel sounds Palpation: soft Extremity Extremity Narrative: +1-2 pitting edema to the bilateral lower extremities that is equal and symmetric and chronic per patient Negative Homans' sign bilaterally Neuro oriented x3, CN's II-XII intact bilaterally and no sensory deficits noted Neuro Narrative: GCS of 15 Cranial nerves II through XII are grossly intact there are no focal neurologic deficits No pronator drift no dysmetria no truncal ataxia NIH stroke scale score of 0 Mild nystagmus noted Sensorium / Orientation: alert Motor Exam: strength 5/5 throughout Psych mental status grossly normal Skin no rashes or lesions noted and no wounds General Skin Exam: Negative for jaundice or pallor MDM MDM MDM Narrative Medical decision making narrative: Patient presented to the ER afebrile and with normal neurologic exam. He reported he fell when he tried to stand up from bed Monday evening. As he does take Eliquis there is concern that his dizziness as well as nausea and vomiting is related to a traumatic subarachnoid or subdural hemorrhage and therefore a CT of the brain was obtained. In order to check for potential infectious process such as acute cholecystitis versus pancreatitis versus diverticulitis or colitis basic labs were obtained. Patient's white count is elevated at 13 concerning for potential infectious or inflammatory process. His creatinine is slightly elevated at 1.74 which correlates with his physical exam showing dry mucous membranes and mild dehydration. His liver enzymes have elevated from September of this year. His total bilirubin has changed from 1.1-4. His direct bilirubin has increased from 0.26-2.6. His liver enzymes and lipase is also elevated. The CT scan of the abdomen and pelvis did not reveal signs of acute cholecystitis or obvious gallstones to suggest gallstone pancreatitis. However it did show a pancreatic mass which was increased in size from previously. Secondary to the elevation of his liver enzymes and the pancreatic mass the case was discussed with nautical instrument mechanic Dr. Sher. He recommends a ultrasound of the gallbladder/pancreas for further investigation and as well as start of antibiotics secondary to the leukocytosis. He feels the patient would benefit from admission in order to trend the liver enzymes and ensure there is no signs of infectious process. This plan of care was discussed with the patient and he is agreeable to it. I informed him that his head CT does not reveal bleed or mass but there are changes which could be concerning for NPH. He states that he has not had difficulty with urination. His exam did not suggest vertigo as his dizziness as he had negative Hallpike Singh exam and his orthostatic vitals were negative going against this as a potential cause. Therefore this time as patient has elevation to his liver enzymes and a new pancreatic mass and will need continued monitoring of the values as well as potential workup for hidden infection he will be kept in the hospital for further care. The case was discussed with the hospitalist and he is agreeable to admit the patient for further monitoring Of note the patient's urine sample did show +2 bacteria but there are no white cells and it is nitrite negative and therefore do not feel this is true infection and therefore there is no need for culture History & Record Review Discussion w/independent historian: Patient Lab Data Attestation: I reviewed the patient's lab results. Labs: Laboratory Results - last 24 hr 03/26/24 03/26/24 02:15 04:05 WBC 13.3 H RBC 4.49 L Hgb 14.4 Hct 42.2 MCV 94.0 MCH 32.1 H MCHC 34.1 RDW Std Deviation 47.4 H RDW Coeff of Gisella 13.8 Plt Count 198 MPV 9.7 Immature Gran % (Auto) 0.800 Neut % (Auto) 86.5 H Lymph % (Auto) 3.[address] [place] % (Auto) 8.7 Eos % (Auto) 0.1 Baso % (Auto) 0.2 Absolute Neuts (auto) 11.5 H Absolute Lymphs (auto) 0.49 L Nucleated RBC % 0 PT 14.4 INR 1.1 APTT 25.8 Sodium 139 Potassium 3.7 Chloride 104 Carbon Dioxide 26.0 Anion Gap 9 BUN 25 H Creatinine 1.74 H Estim Creat Clear Calc 46.70 Est GFR (MDRD) Af Amer 49 L Est GFR (MDRD) Non-Af 40 L BUN/Creatinine Ratio 14.4 Glucose 163 H Calcium 8.9 Magnesium 1.4 L Total Bilirubin 4.00 H Direct Bilirubin 2.57 H AST 287 H ALT 344 H Alkaline Phosphatase 135 H Total Protein 6.7 Albumin 3.2 Globulin 3.5 Lipase > 250 H Urine Color Yellow Urine Clarity Sl. Cloudy Urine pH 6.0 Ur Specific [place] 1.010 Urine Protein 15 H Urine Glucose (UA) Normal Urine Ketones 5 H Urine Occult Blood 10 H Urine Nitrite Negative Urine Bilirubin Negative Urine Urobilinogen 4 H Ur Leukocyte Esterase Negative Urine RBC 5-10 SEEN Urine WBC 0 SEEN Ur Squamous Epith Cells 0-5 SEEN Urine Bacteria 2+ Urine Mucus 0 SEEN Radiography Diagnostic Testing: Clinical Impression(s) from Imaging Studies Brain CT 03/26/24 02:29 IMPRESSION: Ventricles are dilated out of portion to remaining CSF spaces, without definite obstructing lesion identified. This is unchanged from comparison examination. Although this may represent central volume loss, cannot exclude stable hydrocephalus. In addition, chronic normal pressure hydrocephalus can have a similar appearance, in the appropriate clinical setting, especially given crowding of the sulci at the vertex. Sinus disease. Otherwise, only age-related changes as above, without evidence of acute intracranial hemorrhage in this noncontrast head CT. Electronically Signed: Mario Patel MD at 5:36 EST , Abdomen/Pelvis CT 03/26/24 03:06 IMPRESSION: Lobulated 6 cm pancreatic tail hypoattenuating, cystic appearing lesion previously measuring only up to 3 cm. Cystic neoplastic process is not excluded. Severe distal colonic diverticulosis without focus of diverticulitis. 3 cm exophytic anterior right interpolar renal lesion which does not measure simple fluid attenuation. Recommend nonemergent follow-up renal ultrasound to better characterize as solid neoplastic process is not excluded. Electronically Signed: Mario Patel MD at 5:30 EST , Management Discussion w/another healthcare provider: Hospitalist and Bar Supervisor Discharge Plan Triage Chief Complaint: Dizziness ED Provider: Thomas Domínguez Dx/Rx/DC Orders Clinical Impression: Pancreatic mass, Elevated liver enzymes, Leukocytosis, Nausea and vomiting, Renal insufficiency, Current use of production bow maker 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 Prescriptions: No Action lisinopril 40 MG tablet 40 mg PO DAILY Patient Comments: BLOOD PRESSURE levothyroxine 100 MCG tablet 100 mcg PO DAILY Patient Comments: THYROID atorvastatin 40 MG tablet 40 mg PO QHS Qty: 90 0RF Eliquis 5 mg tablet 5 mg PO BID gabapentin 300 mg capsule 300 mg PO DAILY metoprolol succinate 50 mg tablet extended release 24 hr 50 mg PO DAILY Primary Care Provider: Salvador Diaz Referrals: Salvador Diaz MD [Primary Care Provider] - Print Language: Telugu Disposition Disposition: Acute Care Hospital [facility]
[2024-03-26 03:00] LABS: AST(SGOT) 287 U/L (15-37); Alanine Aminotransfer ALT/SGPT 344 U/L (16-61); Albumin, Serum 3.2 g/dL (3.2-5.0); Alkaline Phosphatase 135 U/L (45-117); Anion Gap 9 (5-15); BUN 25 mg/dL (7-18); BUN/Creat Ratio 14.4 RATIO (10-20); Bilirubin, Direct 2.57 mg/dL (0.00-0.30); Calcium,Total 8.9 mg/dL (8.5-10.1); Chloride 104 mmol/L (98-107); Creatinine, Serum 1.74 mg/dL (0.70-1.30); EST Glomerular Filtration Rate 40 mL/min (>60); Est Glom Filt Rate - Afr Amer 49 mL/min (>60); Globulin 3.5 g/dL (2.2-4.2); Glucose 163 mg/dL (74-106); Lipase > 250 U/L (13-75); Magnesium 1.4 mg/dL (1.6-2.6); Potassium 3.7 mmol/L (3.5-5.1); Protein, Total 6.7 g/dL (6.4-8.2); Sodium Level 139 mmol/L (136-145)
--- NOTE | 2024-03-26 03:06 | CT_ITS ---
INDICATION: elevated liver enzymes COMPARISON: 09/04/[address] IV Contrast dosage and agent: 100 cc [id number]-370 IV. A radiation dose optimization technique was used for this scan. RADIATION DOSAGE (If Supplied By Facility): CTDIvol/DLP = ( 26.86 ) / ( 1853.72 ) mGy/mGycm FINDINGS: Contrast enhanced serial CT axial images through the abdomen and pelvis with coronal and sagittal reformatted series. PANCREAS: Lobulated 6 cm pancreatic tail hypoattenuating, cystic appearing lesion. No peripancreatic fat stranding. BOWEL/MESENTERY: Duodenal diverticulum. No dilated bowel loops. No significant free fluid. No free air. Severe distal colonic diverticulosis without focus of diverticulitis. GALLBLADDER: No pericholecystic fat stranding. LIVER/STOMACH: Moderate size hiatal hernia. URINARY COLLECTING SYSTEM/ KIDNEYS: No obstructing ureteral calculus. Right lower renal pole simple fluid attenuating lesion, likely renal cyst. Additional 3 cm exophytic anterior right interpolar renal lesion which does not measure simple fluid attenuation. APPENDIX: Normal caliber gas containing appendix. LUNG BASES: Unremarkable. BONES: Stable T11 vertebral body anterior wedge compression deformity. Right proximal humerus femur total hip arthroplasty without obvious hardware complication, although incompletely imaged. CT/Abdomen/Pelvis W IV Cont ONLY IMPRESSION: Lobulated 6 cm pancreatic tail hypoattenuating, cystic appearing lesion previously measuring only up to 3 cm. Cystic neoplastic process is not excluded. Severe distal colonic diverticulosis without focus of diverticulitis. 3 cm exophytic anterior right interpolar renal lesion which does not measure simple fluid attenuation. Recommend nonemergent follow-up renal ultrasound to better characterize as solid neoplastic process is not excluded. Electronically Signed: Mario Patel MD at 5:30 EST ,
[2024-03-26 04:10] LABS: Mucous, Urine 0 SEEN /hpf (<or=2+); White Blood Cells 0 SEEN /hpf (0-5)
[2024-03-26 04:12] LABS: Color, Urine Yellow (Yellow); Glucose, Dipstick Normal (Normal); Ketone-Dipstick 5 mg/dl (Negative); Leukocyte Esterase-Dipstick Negative /ul (Negative); Nitrite-Dipstick Negative (Negative); Occult Blood-Urine 10 /ul (Negative); Protein-Dipstick 15 mg/dl (Negative); Urine Bilirubin Dipstick Negative (Negative); Urine Clarity Sl. Cloudy (Clear); Urine Urobilinogen 4 mg/dl (Normal)
[2024-03-26 04:19] LABS: Bacteria 2+ /hpf (None Seen); Red Blood Cells-Urine 5-10 SEEN /hpf (0-5); Squamous Epithelial Cells - UA 0-5 SEEN /hpf (0-5)
--- NOTE | 2024-03-26 06:02 | US_ITS ---
STUDY: ABDOMINAL ULTRASOUND - RIGHT UPPER QUADRANT REASON FOR VISIT: Male, 78 years old Elevated liver enzymes with pancreatic mass TECHNIQUE: Ultrasound evaluation of the right upper quadrant was performed with real-time and static rodriguez-scale imaging. TECHNICAL QUALITY: Adequate. COMPARISON: CT earlier today FINDINGS: Liver: The liver measures 18.7 cm. There is increased echogenicity consistent with fatty infiltration. The bile ducts are within normal limits. There is hepatic color flow. The direction of portal flow is hepatopetal. There is no demonstrated mass lesion. Gallbladder: Normal distended gallbladder. The gallbladder wall measures 2 mm. There is a negative sonographic Robledo''s sign. There is no pericholecystic fluid. There are no gallstones. Common Bile Duct (C.B.D.): The common bile duct measures 5 mm. Pancreas: Normal size of the head, body and tail of the pancreas. There is normal echogenicity of the pancreas. There is no demonstrated pancreatic mass or cyst. Right Kidney: Normal size of the right kidney. The right kidney measures 12.5 cm. Normal renal cortex. The right cortex measures 1.7 cm. 2.6 cm exophytic cyst in the midsection of the right kidney. Another 3.6 cm cyst in the lower pole right kidney. There is no right hydronephrosis. US/Gallbladder IMPRESSION: Fatty infiltration of the liver. Electronically Signed: Ethan Nation MD at 8:24 EST ,
--- NOTE | 2024-03-26 06:09 | PCM.HP.STD ---
HPI - General General Date of Admission: 03/26/24 Date of Service: 03/26/24 Chief Complaint: Abdominal pain, nausea/vomiting and dizziness HPI Narrative FRAN PAREKH, is a 78 M who presented to [facility] ED on 03/26/24 with abdominal pain, nausea/vomiting and dizziness. Patient lives at home alone. Notes that he initially had lightheadedness and dizziness on Monday evening and lost his balance and fell into a table. He called his neighbors for help and they helped him into bed, and he slept well overnight and felt fine in the morning. However after eating a salad yesterday evening he began to have epigastric to right upper quadrant abdominal pain and nausea and then had several episodes of vomiting. He has not had vomiting episodes like this in years. He also became more lightheaded and dizzy after these vomiting episodes. Because of the symptoms, he called EMS to bring him in for further evaluation. On arrival to the ED he was hemodynamically stable on room air. Orthostatic vital signs were obtained and his heart rate worsened with standing and patient had significant lightheadedness and dizziness, thus they were positive. CT abdomen pelvis showed a lobulated 6 cm pancreatic tail cystic appearing lesion that was larger compared to previous CT scan but otherwise showed no gallbladder issues or liver issues. Labs were notable for significantly elevated LFTs with total bilirubin 4.0, direct bili 2.5, AST 287, ALT 344, alk phos 135. Also had lipase of greater than 250 and mild WBC count elevation of 13. Case was discussed with Dr. Sher who recommended ultrasound of the gallbladder/pancreas for further evaluation and starting antibiotics for possible infection. Also recommended admitting patient for trending liver enzymes. Hospitalist was then contacted for admission. I saw the patient at bedside in the ED. Patient was laying back comfortably in bed, conversing normally, no acute distress. He had been given a 1 L fluid bolus and a dose of IV Zofran with good improvement in his nausea and general discomfort. He denied any abdominal pain or discomfort currently. Denied any nausea. Denied any fevers or chills. No other acute concerns at this time. Will be admitted for further management. [facility] Medical History High cholesterol Hx of gastroesophageal reflux (GERD) Hypertension Hypothyroidism Home Medications ?Medication ?Instructions ?Recorded ?Last Taken ?Type lisinopril 40 mg tablet 40 mg PO DAILY 01/31/13 Unknown History levothyroxine 100 mcg tablet 100 mcg PO DAILY 09/04/16 09/04/16 06:00 History atorvastatin 40 mg tablet 40 mg PO QHS ##90 09/05/16 Unknown Rx gabapentin 300 mg capsule 300 mg PO DAILY 10/22/23 Unknown History metoprolol succinate 50 mg 50 mg PO DAILY 10/22/23 Unknown History tablet,extended release 24 hr apixaban 5 mg tablet (Eliquis) 5 mg PO BID 03/26/24 Unknown History Allergy/AdvReac Type Severity Reaction Status Date / Time azithromycin (From Zithromax) Allergy Itching Verified 03/26/24 02:00 Social History Smoking Status: Never smoker ROS Constitutional Constitutional: Denies chills, fatigue, fever(s) or weakness Eyes Eyes: Denies change in vision Cardiovascular Cardiovascular: Denies chest pain Respiratory/Chest Respiratory/Chest: Denies shortness of breath at rest Gastrointestinal Gastrointestinal: Reports abdominal pain, nausea and vomiting; Denies constipation or diarrhea Genitourinary Genitourinary: Denies dysuria Musculoskeletal Musculoskeletal: Denies arthralgias or myalgias Neurologic Neurologic: Reports dizziness; Denies focal weakness or headache(s) Vital Signs Vital Signs Vital Signs: 03/26/24 02:01 03/26/24 02:41 03/26/24 04:00 Temperature 98.9 F Temperature Source Oral Pulse Rate 87 85 Pulse Rate [Lying] 88 Pulse Rate [Sitting (for 1 minute prior to obtaining)] 96 Pulse Rate [Standing (for 1 minute prior to obtaining)] 106 H Respiratory Rate 17 18 Blood Pressure 134/65 H 113/63 Blood Pressure [Lying] 122/63 H Blood Pressure [Sitting (for 1 minute prior to obtaining)] 143/81 H Blood Pressure [Standing (for 1 minute prior to obtaining)] 137/77 H Blood Pressure Mean 88 79 Blood Pressure Mean [Lying] 82 Blood Pressure Mean [Sitting (for 1 minute prior to obtaining)] 101 Blood Pressure Mean [Standing (for 1 minute prior to obtaining)] 97 Pulse Ox 93 97 Oxygen Delivery Method Room Air Room Air Weight Weight: 130.3 kg Body Mass Index (BMI) 41.2 Physical Exam Const alert, oriented x3 and no apparent distress Constitutional Narrative: Elderly male, morbidly obese, mildly fatigued appearing, otherwise laying back comfortably in bed, conversing normally, no acute distress. General Appearance: cooperative and comfortable HEENT normocephalic, head/scalp atraumatic, hearing grossly normal bilaterally, nasal mucous membranes and turbinates normal and moist oral mucous membranes Eyes PERRL, EOMs intact bilaterally and conjunctivae normal Neck full ROM Chest inspection of chest normal Resp normal respiratory effort, normal air movement, no use of accessory muscles and clear to auscultation bilaterally Cardio regular rate, regular rhythm, no murmurs and peripheral pulses 2+ throughout GI normal to inspection, nondistended, normoactive bowel sounds, soft to palpation, non-tender and non-distended GI Narrative: No tenderness on palpation of epigastric and right upper quadrant areas. Back/Spine normal ROM Extremity normal to inspection, full ROM and no pedal edema Skin no rashes or lesions noted Psych mental status grossly normal Results Lab / Micro Data 03/26/24 02:15 03/26/24 02:15 Labs: Laboratory Results - last 24 hr 03/26/24 02:15: WBC 13.3 H, RBC 4.49 L, Hgb 14.4, Hct 42.2, MCV 94.0, MCH 32.1 H, MCHC 34.1, RDW Std Deviation 47.4 H, RDW Coeff of Gisella 13.8, Plt Count 198, MPV 9.7, Immature Gran % (Auto) 0.800, Neut % (Auto) 86.5 H, Lymph % (Auto) 3.7 L, [place] % (Auto) 8.7, Eos % (Auto) 0.1, Baso % (Auto) 0.2, Absolute Neuts (auto) 11.5 H, Absolute Lymphs (auto) 0.49 L, Nucleated RBC % 0, PT 14.4, INR 1.1, APTT 25.8, Sodium 139, Potassium 3.7, Chloride 104, Carbon Dioxide 26.0, Anion Gap 9, BUN 25 H, Creatinine 1.74 H, Estim Creat Clear Calc 46.70, Est GFR (MDRD) Af Amer 49 L, Est GFR (MDRD) Non-Af 40 L, BUN/Creatinine Ratio 14.4, Glucose 163 H, Calcium 8.9, Magnesium 1.4 L, Total Bilirubin 4.00 H, Direct Bilirubin 2.57 H, AST 287 H, ALT 344 H, Alkaline Phosphatase 135 H, Total Protein 6.7, Albumin 3.2, Globulin 3.5, Lipase > 250 H 03/26/24 04:05: Urine Color Yellow, Urine Clarity Sl. Cloudy, Urine pH 6.0, Ur Specific [place] 1.010, Urine Protein 15 H, Urine Glucose (UA) Normal, Urine Ketones 5 H, Urine Occult Blood 10 H, Urine Nitrite Negative, Urine Bilirubin Negative, Urine Urobilinogen 4 H, Ur Leukocyte Esterase Negative, Urine RBC 5-10 SEEN, Urine WBC 0 SEEN, Ur Squamous Epith Cells 0-5 SEEN, Urine Bacteria 2+, Urine Mucus 0 SEEN Imaging Radiology Impression Brain CT 03/26/24 02:29 IMPRESSION: Ventricles are dilated out of portion to remaining CSF spaces, without definite obstructing lesion identified. This is unchanged from comparison examination. Although this may represent central volume loss, cannot exclude stable hydrocephalus. In addition, chronic normal pressure hydrocephalus can have a similar appearance, in the appropriate clinical setting, especially given crowding of the sulci at the vertex. Sinus disease. Otherwise, only age-related changes as above, without evidence of acute intracranial hemorrhage in this noncontrast head CT. Electronically Signed: Mario Patel MD at 5:36 EST , Abdomen/Pelvis CT 03/26/24 03:06 IMPRESSION: Lobulated 6 cm pancreatic tail hypoattenuating, cystic appearing lesion previously measuring only up to 3 cm. Cystic neoplastic process is not excluded. Severe distal colonic diverticulosis without focus of diverticulitis. 3 cm exophytic anterior right interpolar renal lesion which does not measure simple fluid attenuation. Recommend nonemergent follow-up renal ultrasound to better characterize as solid neoplastic process is not excluded. Electronically Signed: Mario Patel MD at 5:30 EST , Assessment & Plan Assessment/Plan (1) Elevated liver enzymes: (2) Pancreatic mass: PLAN: Plan Patient is a 78-year-old male who presented [facility] ED on 03/26/2024 with abdominal pain, nausea/vomiting and dizziness. 1. Abdominal pain with nausea/vomiting and elevated transaminases, concern for acute pancreatitis ? Admit under inpatient status to [facility]. GI consulted. Unclear etiology for elevated LFTs at this time. Have some concern for possible gallstone pancreatitis given patient's presentation and very elevated lipase, though gallbladder and liver notably are unremarkable on CT scan. Follow-up right upper quadrant and pancreas ultrasound. Trend LFTs. N.p.o. status for now. Continue IV Zosyn given some concern for intra-abdominal infection. 2. Large pancreatic tail lesion ? Noted on CT abdomen pelvis on admit. Noted to be 6 cm and larger than it was previously. Ultrasound ordered as above. Appreciate GI recommendations. 3. 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 Holding dose of Eliquis this morning in case of need for procedure today. If no procedure, recommend restarting Eliquis tonight. 4. Hypertension ? Holding home lisinopril given positive orthostatics. Continue home Toprol. 5. Hyperlipidemia ? Holding home atorvastatin given elevated LFTs, restart when able. 6. Hypothyroidism ? Continue home Synthroid. 7. Neuropathy ? Continue home gabapentin. 8. Morbid obesity ? BMI 41 on admit. Complicates hospital course, care and prognosis. DVT prophylaxis: Not indicated, on Eliquis CODE STATUS: Full code, verified Expected disposition: Home, 2 to 3 days Total clinical time spent by myself addressing the patient's medical issues, reviewing all the data, and collaborating with patient's care team: 55 minutes. Charges/Coding Visit Charges Inpatient E&M: 58797 Init Hosp L2
[2024-03-26] MEDS: Piperacil/Tazobactam 3.375 GM in 0.9% Normal Saline (50mL MB+) 50 ML IV ×3 (06:21→21:07)
--- NOTE | 2024-03-26 11:00 | CASEMGMT ---
RN?CM?STEEL SAMPLER?CM?to room to meet with patient for initial transition planning/care coordination?assessment.?RN?CM?introduced self and role at [facility].? Pt voices understanding and consents to?assessment?at this time.? Pt resting in bed in no distress at this time.? Pt is A/O at this time and answers all questions appropriately.?? Care providers, pharmacy, and demographics verified/updated at this time. Strata: 2 PCP: Dr Diaz Specialists: Dr Eduardo-pain management, Dr Miranda-collections officer @ [facility]. Preferred Pharmacy: [facility] Insurance: [facility] Prescription Benefit:?yes Living Will/HPOA:? Noted on admission questions that pt answered yes to having these documents and that Kyler Hernandez is his POA. Educated on AD, LW and HCPOA. Pt clarified that yKler is his hotel or motel manager, not HCPOA. Pt states he not done LW or HCPOA and denies wishing to complete at this time. Aware this can be done as an OP w/SW, if he chooses to do so at a later time. LNOK: , Estefania (lives in [place], [place]). Daughter, Xiao Marquez (she is a hose maker, lives in [place], [place]). Son, Benjamin Lopez (lives in [place], [place]). Oldest sister, Iliana Kelly. Living Arrangements: Pt lives alone in 2-story home w/1 step to enter. Bedroom and bathroom are on 2nd floor. 1/2 bath on main floor. Pt states his is a and she resides most of the year in [place], [place], working w/her people. He states they travel back and forth between [place] and [place]. Pt states he sees her about 3-6 months out of the year. Pt states he is independent w/ADL's and IADL's. He goes out to eat w/friends @ [place] about 3 x's/week for dinner. Transportation:?Pt states drives self and states no transportation concerns at this time.? Neighbor will take him home @ discharge. DME: ?States has the following DME:?shower chair, grab bars, hand-held shower, CPAP. Has available, but does not use: walker, cane, raised toilet seat. ?Pt states no need for further DME at this time.? HHC/SNF: No hx of SNF. Has had HHC in the past after hip surgery. Pt wishes to discharge home and declines wanting HHC or OP therapy. Pt wishes to return home and states has no concerns with going home at time of discharge. ?CM?to follow for any discharge planning/needs.? Pt voices no further concerns/needs at this time.? Advised pt to ask for?CM?if any further questions/concerns/needs arise.? Voices understanding. PLAN:?Home ? Fish BSN?RN?CM
[2024-03-26] MEDS: Gabapentin 300 MG Capsule PO (11:40)
[2024-03-26] MEDS: Levothyroxine 100 MCG Tablet PO (11:40)
--- NOTE | 2024-03-26 14:15 | PN_ITS ---
Subjective Subjective Patient seen and examined. He had no active complaints. His abdominal pain has improved. Review of systems is otherwise negative. He has remained hemodynamically stable. Objective Data Objective Data Vital Signs: Vital Signs Temp Pulse Resp BP Pulse Ox O2 Del Method 98.0 F 65 16 106/58 L 95 Room Air 03/26/24 13:11 03/26/24 13:28 03/26/24 13:11 03/26/24 13:28 03/26/24 13:11 03/26/24 13:11 Oxygen Delivery Method Room Air Weight: 287 lb 4.197 oz Body Mass Index (BMI) 41.2 Intake & Output: Intake and Output for Last 24 Hours 03/24/24 03/25/24 03/26/24 23:59 23:59 23:59 Intake Total 1150 / 1150 Balance 1150 / 1150 Lab / Micro Data 03/26/24 02:15 03/26/24 02:15 Labs: Laboratory Results - last 24 hr 03/26/24 02:15: WBC 13.3 H, RBC 4.49 L, Hgb 14.4, Hct 42.2, MCV 94.0, MCH 32.1 H , MCHC 34.1, RDW Std Deviation 47.4 H, RDW Coeff of Gisella 13.8, Plt Count 198, MPV 9.7, Immature Gran % (Auto) 0.800, Neut % (Auto) 86.5 H, Lymph % (Auto) 3.7 L, [place] % (Auto) 8.7, Eos % (Auto) 0.1, Baso % (Auto) 0.2, Absolute Neuts (auto) 11.5 H, Absolute Lymphs (auto) 0.49 L, Nucleated RBC % 0, PT 14.4, INR 1.1, APTT 25.8, Sodium 139, Potassium 3.7, Chloride 104, Carbon Dioxide 26.0, Anion Gap 9, BUN 25 H, Creatinine 1.74 H, Estim Creat Clear Calc 46.70, Est GFR (MDRD) Af Amer 49 L, Est GFR (MDRD) Non-Af 40 L, BUN/Creatinine Ratio 14.4, Glucose 163 H, Calcium 8.9, Magnesium 1.4 L, Total Bilirubin 4.00 H, Direct Bilirubin 2.57 H, A ST 287 H, ALT 344 H, Alkaline Phosphatase 135 H, Total Protein 6.7, Albumin 3.2, Globulin 3.5, Lipase > 250 H 03/26/24 04:05: Urine Color Yellow, Urine Clarity Sl. Cloudy, Urine pH 6.0, Ur Specific [place] 1.010, Urine Protein 15 H, Urine Glucose (UA) Normal, Urine Ketones 5 H, Urine Occult Blood 10 H, Urine Nitrite Negative, Urine Bilirubin Negative, Urine Urobilinogen 4 H, Ur Leukocyte Esterase Negative, Urine RBC 5-10 SEEN, Urine WBC 0 SEEN, Ur Squamous Epith Cells 0-5 SEEN, Urine Bacteria 2+, Urine Mucus 0 SEEN Radiography Diagnostic Testing: Radiology Impression Brain CT 03/26/24 02:29 IMPRESSION: Ventricles are dilated out of portion to remaining CSF spaces, without definite obstructing lesion identified. This is unchanged from comparison examination. Although this may represent central volume loss, cannot exclude stable hydrocephalus. In addition, chronic normal pressure hydrocephalus can have a similar appearance, in the appropriate clinical setting, especially given crowding of the sulci at the vertex. Sinus disease. Otherwise, only age-related changes as above, without evidence of acute intracranial hemorrhage in this noncontrast head CT. Electronically Signed: Mario Patel MD at 5:36 EST , Abdomen/Pelvis CT 03/26/24 03:06 IMPRESSION: Lobulated 6 cm pancreatic tail hypoattenuating, cystic appearing lesion previously measuring only up to 3 cm. Cystic neoplastic process is not excluded. Severe distal colonic diverticulosis without focus of diverticulitis. 3 cm exophytic anterior right interpolar renal lesion which does not measure simple fluid attenuation. Recommend nonemergent follow-up renal ultrasound to better characterize as solid neoplastic process is not excluded. Electronically Signed: Mario Patel MD at 5:30 EST , Gallbladder Ultrasound 03/26/24 06:02 IMPRESSION: Fatty infiltration of the liver. Electronically Signed: Ethan Nation MD at 8:24 EST , Physical Exam Const alert, oriented x3 and no apparent distress Constitutional Narrative: obese General Appearance: cooperative HEENT normocephalic, head/scalp atraumatic and moist oral mucous membranes Eyes PERRL and EOMs intact bilaterally Neck no lymphadenopathy and supple Lymph Lymphatic: no lymphadenopathy noted and no lymphedema noted Resp normal respiratory effort, normal air movement and clear to auscultation bilaterally Cardio regular rate, regular rhythm, S1 normal heart sound, S2 normal heart sound and no murmurs GI normal to inspection, nondistended, normoactive bowel sounds, soft to palpation, non-tender and non-distended Extremity normal capillary refill, no clubbing, cyanosis or edema and no calf tenderness General Extremity: no tenderness to palpation of joints or extremities Skin General Skin Exam: no breakdown Neuro CN's II-XII intact bilaterally, no focal motor deficits and no sensory deficits noted Motor Exam: strength 5/5 throughout and general weakness Psych thought process normal and cooperative Appearance: appropriate Assessment & Plan Assessment/Plan (1) 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 * CT of the abdomen and pelvis showed lobulated 6 cm pancreatic tail hypoattenuating cystic appearing lesion previously measuring only up to 3 cm. Cystic neoplastic process is not excluded. * RIght upper quadrant ultrasound pending. * currently NPO * trend liver enxzymes * * on IV zosyn due to concerns about intra abdominal infection * #Large pancreatic tail lesion * CT of the abdomen and pelvis showed a lesion in the pancreatic tail * it was noted to be bigger than previous * RUQ USG showed fatty infiltration of the liver with normal distended gallbladder and negative Robledo sign with no pericholecystic fluid. * consult GI * #UTI * Urinalysis showed 2+ bacteria. Will get urine cultures. On IV Zosyn. * #Right renal lesion * CT abdomen and pelvis showed 3 cm axial facet anterior right interpolar renal lesion * Follow-up on outpatient basis for further imaging as needed. * #Elevated liver enzymes: * Total bilirubin is 4 with direct bilirubin of 2.57. AST and ALT also elevated as well as ALP. * CT abdomen and pelvis findings as above. RUQ USG as above * consult GI * #Hypomagnesemia: Mg is 1.4. Was replaced on admission. WIll monitor. #CKD stage III, creatinine is 1.74. Baseline creatinine from September 2023 was 1.81. Will monitor. 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 This was held on admission due to concerns about him requiring an intervention. #Type attention: On lisinopril and metoprolol. Lisinopril held due to positive orthostatics on admission # Hyperlipidemia: Atorvastatin held due to elevated liver enzymes #Hypothyroidism: On Synthroid #Peripheral neuropathy: On gabapentin #Morbid obesity: BMI is 41. Complicates acute care, expected recovery and prognosis. DVT prophylaxis: On Eliquis. Charges/Coding Visit Charges Inpatient E&M: 12534 Subs Hosp L2
[2024-03-26] MEDS: Magnesium Sulfate 4gm/100mL 4 GM/100 ML IV.SOLN. IV (15:34)
[2024-03-26] MEDS: 0.9% Normal Saline (500mL Bag) 500 ML 15 ML IV (15:35)
--- NOTE | 2024-03-26 15:58 | CHAPLAIN ---
Type of Pastoral Visit _x__ Initial Visit ___ Follow-up Visit ___ On-call Visit ___ General Patient Visit ___ Spiritual Assessment ___ Family Conference ___ Bereavement ___ Rapid Response ___ Code Blue ___ Other (describe below) Pastoral Care Referral From _x__ Patient ___ Family ___ Nurse ___ Physician ___ Pharmacist Helper ___ Plate Mounter ___ Other (describe below) Sacrament/Intervention _x__ Active listening ___ Anointing ___ Protestant ___ Bereavement ___ Communion _x__ [place] exploration ___ _x__ Life review _x__ Prayer ___ Reconciliation ___ Sacrament of Sick _x__ Supportive presence ___ Wedding ___ Other (describe below) Pastoral Comments patient acknowledges that he is waiting to have results from tests done earlier today; pt is feeling better but admits to some concerns about the possibilities of what is happening; pt is currently in [place]; 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
--- NOTE | 2024-03-26 19:45 | EX.PCM.CON.G ---
HPI Consult Data Date of Consult: 03/26/24 HPI Narrative Reason for Consultation: Pancreatitis HPI Narrative: FRAN PAREKH, is a 78 M who presented to [facility] ED on 03/26/24 with abdominal pain, nausea/vomiting and dizziness. Patient lives at home alone. Notes that he initially had lightheadedness and dizziness on Monday evening and lost his balance and fell into a table. He called his neighbors for help and they helped him into bed, and he slept well overnight and felt fine in the morning. However after eating a salad yesterday evening he began to have epigastric to right upper quadrant abdominal pain and nausea and then had several episodes of vomiting. CT abdomen pelvis showed a lobulated 6 cm pancreatic tail cystic appearing lesion that was larger compared to previous CT scan but otherwise showed no gallbladder issues or liver issues. Labs were notable for significantly elevated LFTs with total bilirubin 4.0, direct bili 2.5, AST 287, ALT 344, alk phos 135. Also had lipase of greater than 250 and mild WBC count elevation of 13. Ultrasound: Liver: The liver measures 18.7 cm. There is increased echogenicity consistent with fatty infiltration. The bile ducts are within normal limits. There is hepatic color flow. The direction of portal flow is hepatopetal. There is no demonstrated mass lesion. Gallbladder: Normal distended gallbladder. The gallbladder wall measures 2 mm. There is a negative sonographic Robledo''s sign. There is no pericholecystic fluid. There are no gallstones. Common Bile Duct (C.B.D.): The common bile duct measures 5 mm. Pancreas: Normal size of the head, body and tail of the pancreas. There is normal echogenicity of the pancreas. There is no demonstrated pancreatic mass or cyst. Right Kidney: Normal size of the right kidney. The right kidney measures 12.5 cm. Normal renal cortex. The right cortex measures 1.7 cm. 2.6 cm exophytic cyst in the midsection of the right kidney. Another 3.6 cm cyst in the lower pole right kidney. There is no right hydronephrosis. [facility] Medical History High cholesterol Hx of gastroesophageal reflux (GERD) Hypertension Hypothyroidism Home Medications ?Medication ?Instructions ?Recorded ?Last Taken ?Type lisinopril 40 mg tablet 40 mg PO DAILY 01/31/13 Unknown History atorvastatin 40 mg tablet 40 mg PO QHS ##90 09/05/16 Unknown Rx gabapentin 300 mg capsule 300 mg PO DAILY nerve pain 10/22/23 03/25/24 History metoprolol succinate 50 mg 50 mg PO DAILY 10/22/23 Unknown History tablet,extended release 24 hr apixaban 5 mg tablet (Eliquis) 5 mg PO BID 03/26/24 Unknown History hydrochlorothiazide 25 mg tablet 25 mg PO DAILY reduce fluid 03/26/24 03/25/24 History levothyroxine 125 mcg tablet 125 mcg PO DAILY disorder of 03/26/24 Unknown History thyroid gland Allergy/AdvReac Type Severity Reaction Status Date / Time azithromycin (From Zithromax) Allergy Itching Verified 03/26/24 02:00 Social History Smoking Status: Never smoker ROS Constitutional Constitutional: Denies chills, fatigue, fever(s) or weakness Eyes Eyes: Denies change in vision Cardiovascular Cardiovascular: Denies chest pain Respiratory/Chest Respiratory/Chest: Denies shortness of breath at rest Gastrointestinal Gastrointestinal: Reports abdominal pain, nausea and vomiting; Denies constipation or diarrhea Genitourinary Genitourinary: Denies dysuria Musculoskeletal Musculoskeletal: Denies arthralgias or myalgias Neurologic Neurologic: Reports dizziness; Denies focal weakness or headache(s) Physical Exam Const alert, oriented x3 and no apparent distress Constitutional Narrative: obese General Appearance: cooperative HEENT normocephalic, head/scalp atraumatic and moist oral mucous membranes Eyes PERRL and EOMs intact bilaterally Neck no lymphadenopathy and supple Lymph Lymphatic: no lymphadenopathy noted and no lymphedema noted Resp normal respiratory effort, normal air movement and clear to auscultation bilaterally Cardio regular rate, regular rhythm, S1 normal heart sound, S2 normal heart sound and no murmurs GI normal to inspection, nondistended, normoactive bowel sounds, soft to palpation, non-tender and non-distended Extremity normal capillary refill, no clubbing, cyanosis or edema and no calf tenderness General Extremity: no tenderness to palpation of joints or extremities Skin General Skin Exam: no breakdown Neuro CN's II-XII intact bilaterally, no focal motor deficits and no sensory deficits noted Motor Exam: strength 5/5 throughout and general weakness Psych thought process normal and cooperative Appearance: appropriate Lab / Micro Data 03/26/24 02:15 03/26/24 02:15 Labs: Laboratory Results - last 24 hr 03/26/24 02:15: WBC 13.3 H, RBC 4.49 L, Hgb 14.4, Hct 42.2, MCV 94.0, MCH 32.1 H, MCHC 34.1, RDW Std Deviation 47.4 H, RDW Coeff of Gisella 13.8, Plt Count 198, MPV 9.7, Immature Gran % (Auto) 0.800, Neut % (Auto) 86.5 H, Lymph % (Auto) 3.7 L, [place] % (Auto) 8.7, Eos % (Auto) 0.1, Baso % (Auto) 0.2, Absolute Neuts (auto) 11.5 H, Absolute Lymphs (auto) 0.49 L, Nucleated RBC % 0, PT 14.4, INR 1.1, APTT 25.8, Sodium 139, Potassium 3.7, Chloride 104, Carbon Dioxide 26.0, Anion Gap 9, BUN 25 H, Creatinine 1.74 H, Estim Creat Clear Calc 46.70, Est GFR (MDRD) Af Amer 49 L, Est GFR (MDRD) Non-Af 40 L, BUN/Creatinine Ratio 14.4, Glucose 163 H, Calcium 8.9, Magnesium 1.4 L, Total Bilirubin 4.00 H, Direct Bilirubin 2.57 H, AST 287 H, ALT 344 H, Alkaline Phosphatase 135 H, Total Protein 6.7, Albumin 3.2, Globulin 3.5, Lipase > 250 H 03/26/24 04:05: Urine Color Yellow, Urine Clarity Sl. Cloudy, Urine pH 6.0, Ur Specific [place] 1.010, Urine Protein 15 H, Urine Glucose (UA) Normal, Urine Ketones 5 H, Urine Occult Blood 10 H, Urine Nitrite Negative, Urine Bilirubin Negative, Urine Urobilinogen 4 H, Ur Leukocyte Esterase Negative, Urine RBC 5-10 SEEN, Urine WBC 0 SEEN, Ur Squamous Epith Cells 0-5 SEEN, Urine Bacteria 2+, Urine Mucus 0 SEEN Imaging Radiology Impression Brain CT 03/26/24 02:29 IMPRESSION: Ventricles are dilated out of portion to remaining CSF spaces, without definite obstructing lesion identified. This is unchanged from comparison examination. Although this may represent central volume loss, cannot exclude stable hydrocephalus. In addition, chronic normal pressure hydrocephalus can have a similar appearance, in the appropriate clinical setting, especially given crowding of the sulci at the vertex. Sinus disease. Otherwise, only age-related changes as above, without evidence of acute intracranial hemorrhage in this noncontrast head CT. Electronically Signed: Mario Patel MD at 5:36 EST , Abdomen/Pelvis CT 03/26/24 03:06 IMPRESSION: Lobulated 6 cm pancreatic tail hypoattenuating, cystic appearing lesion previously measuring only up to 3 cm. Cystic neoplastic process is not excluded. Severe distal colonic diverticulosis without focus of diverticulitis. 3 cm exophytic anterior right interpolar renal lesion which does not measure simple fluid attenuation. Recommend nonemergent follow-up renal ultrasound to better characterize as solid neoplastic process is not excluded. Electronically Signed: Mario Patel MD at 5:30 EST , Gallbladder Ultrasound 03/26/24 06:02 IMPRESSION: Fatty infiltration of the liver. Electronically Signed: Ethan Nation MD at 8:24 EST , Assessment & Plan Assessment/Plan (1) Elevated liver enzymes: (2) Pancreatic mass: PLAN: Plan Patient is a 78-year-old male [facility] with abdominal pain, nausea/vomiting and dizziness. Abdominal pain with nausea/vomiting and elevated transaminases, concern for acute pancreatitis and cholestatic hepatitis with jaundice. She from the differential diagnosis for that would be choledocholithiasis. His bile duct is 5 mm on ultrasound. She has no clear lesions seen on CT or ultrasound. If his LFTs continue to go up then he would likely need endoscopic intervention with an ERCP. I will repeat his liver enzymes. N.p.o. status for now. Continue IV Zosyn given some concern for intra-abdominal infection. Large pancreatic tail lesion The patient denies any alcohol but the lesions in his pancreas do look like pancreatic pseudocyst and his liver does show hypoattenuation that could be secondary to fatty liver disease. Noted on CT abdomen pelvis on admit. Noted to be 6 cm and larger than it was previously. Recommend to check a CA 19-9, MRCP and he would possibly need outpatient endoscopic ultrasound Charges/Coding Visit Charges Inpatient E&M: 75002 Init Hosp L3
--- NOTE | 2024-03-26 19:53 | MRI_ITS ---
EXAM: MR ABDOMEN WITHOUT INTRAVENOUS CONTRAST, MRCP PROTOCOL CLINICAL INDICATION: pancreatitis, jaundice and cholestatic hepatitis, ABDOMEN PAIN AND VOMITING, COMPARE TO ULTRASOUND AND CT TECHNIQUE: Multiplanar and multisequence MR images of the abdomen without intravenous contrast obtained with MRCP sequence. Three-dimensional post-processing reconstructions were performed. COMPARISON: Right upper quadrant ultrasound and CT abdomen pelvis 03/26/2024 FINDINGS: LOWER THORAX: Normal. No pleural effusion. LIVER: No space-occupying lesions within the liver. GALLBLADDER AND BILE DUCTS: Normal. No gallstones. No gallbladder distention or wall edema. No intra- or extrahepatic biliary ductal dilation. No choledochal filling defect. PANCREAS: Several cysts arise from the tail of the pancreas largest one measuring 4.2 cm in diameter. No solid tissue component is identified. Remainder the pancreas is normal. No pancreatic duct dilatation. SPLEEN: Normal. Non-enlarged. ADRENALS: Normal. No nodules. KIDNEYS AND URETERS: 2.4 and 3.5 cm simple appearing right renal cysts. No specific follow-up indicated. Normal renal size and position. No hydronephrosis. STOMACH AND BOWEL: 2.4 cm duodenal diverticulum is noted. INTRAPERITONEAL SPACE: Normal. No ascites or other fluid collection. VASCULATURE: Normal. Abdominal aorta is non-dilated. LYMPH NODES: No enlarged lymph nodes. MRI/MRCP Abdomen without Contrast IMPRESSION: 1. Normal gallbladder and biliary tree. 2. Multiple pancreatic cysts involving the tail of the pancreas. RECOMMENDATIONS: Follow-up MRI in 12 months recommended to further evaluate the pancreatic cyst. Electronically Signed: Radu Carver MD at 11:08 [facility] ,
[2024-03-27] VITALS (13 sets, daily range): BP systolic 103–154; BP diastolic 59–89; PULSE 62–84; RESP 14–18; TEMP 36–36.8; O2SAT 92–96; BMI 41.2
[2024-03-27] MEDS: Piperacil/Tazobactam 3.375 GM in 0.9% Normal Saline (50mL MB+) 50 ML IV ×2 (04:49→18:46)
[2024-03-27] MEDS: Levothyroxine 100 MCG Tablet PO (04:50)
[2024-03-27 06:44] LABS: Hematocrit 38.8 % (40-54); Hemoglobin 12.7 g/dL (13.0-16.5); Mean Corp Hgb Conc 32.7 g/dL (32-36); Mean Corpuscular Hgb 31.1 pg (27.0-32.0); Mean Corpuscular Volume 95.1 fL (80-94); Mean Platelet Vol. 9.4 fl (6.2-12.0); Platelet Count 174 K/mm3 (150-450); RBC Distribution Width CV 13.8 % (11.6-14.6); RBC Distribution Width SD 48.2 fl (35.1-43.9); Red Blood Count 4.08 M/mm3 (4.6-6.2); White Blood Count 9.1 K/mm3 (4.4-11.0)
[2024-03-27 07:09] LABS: ALB/GLOB Ratio 0.8 RATIO (0.9-2.4); AST(SGOT) 128 U/L (15-37); Alanine Aminotransfer ALT/SGPT 228 U/L (16-61); Albumin, Serum 2.6 g/dL (3.2-5.0); Alkaline Phosphatase 107 U/L (45-117); Anion Gap 5 (5-15); BUN 24 mg/dL (7-18); Calcium,Total 8.2 mg/dL (8.5-10.1); Chloride 107 mmol/L (98-107); EST Glomerular Filtration Rate 45 mL/min (>60); Est Glom Filt Rate - Afr Amer 54 mL/min (>60); Estimated Creatinine Clearance 50.79 ml/min; Globulin 3.3 g/dL (2.2-4.2); Glucose 126 mg/dL (74-106); Potassium 3.6 mmol/L (3.5-5.1); Protein, Total 5.9 g/dL (6.4-8.2); Sodium Level 139 mmol/L (136-145)
[2024-03-27] MEDS: Metoprolol(XL)Succ 50 MG Tablet PO (10:18)
[2024-03-27] MEDS: Gabapentin 300 MG Capsule PO (10:22)
--- NOTE | 2024-03-27 14:35 | RAD_ITS ---
STUDY: RETROGRAD ERCP REASON FOR EXAM: Male, 78 years old. Flank pain FLUOROSCOPY TIME (if supplied): (0:32) minutes/seconds TECHNIQUE: Intraoperative fluoroscopy. For intraoperative views. COMPARISON: None. FINDINGS: There is opacification of the common bile duct. No filling defects are seen the common bile duct to suggest retained stone. The common bile duct is mildly enlarged. There is catheterization and opacification of the pancreatic duct appears tortuous and irregular. May be due to chronic pancreatitis. Further evaluation by MRI of the pancreas can be helpful for better characterization. RAD/ERCP Biliary/Pancreas IMPRESSION: There is no evidence of retained stones in the common bile duct. Moderate enlargement of the common bile duct of uncertain significance. Electronically Signed: Lilian Lentz MD at 0:20 EST ,
[2024-03-27] MEDS: Lactated Ringers 1,000 ML 15 ML IV (14:45)
--- NOTE | 2024-03-27 14:49 | CHAPLAIN ---
Type of Pastoral Visit ___ Initial Visit _x__ Follow-up Visit ___ On-call Visit ___ General Patient Visit ___ Spiritual Assessment ___ Family Conference ___ Bereavement ___ Rapid Response ___ Code Blue ___ Other (describe below) Pastoral Care Referral From _x__ Patient ___ Family ___ Nurse ___ Physician ___ Protective Signal Installer Helper ___ Vp & General Counsel ___ Other (describe below) Sacrament/Intervention _x__ Active listening ___ Anointing ___ Yazdanism ___ Bereavement ___ Communion ___ Ijeoma exploration ___ ___ Life review ___ Prayer ___ Reconciliation ___ Sacrament of Sick _x__ Supportive presence ___ Wedding ___ Other (describe below) Pastoral Comments follow up to patient; pt said that he was scheduled for surgery but that it might be cancelled due to changes in his condition which has improved; pt talks about his waiting; and family members are out of the area and patient is alone; however, a friend showed up to check on patient at this time; left the room so they could visit but offered ongoing support as desired
--- NOTE | 2024-03-27 15:30 | PRE.ANES_ITS ---
ASA Classification* ASA Classification ASA Classification: 3 and E Assessment & Plan Anesthesia* Anesthesia Assessment Anesthesia Assessment: Discussed sedation and/or anesthesia options, risks, benefits, and alternatives with patient/parents/legal guardian/POA. Questions invited. The patient/parents/legal guardian/POA seems to understand and agrees to proceed with anesthesia plan. Reviewed the physical assessment, medical history, allergy history and patient home medications list prior to surgery/procedure/anesthetic and documented any changes. Performed airway and anesthesia risk assessments. Anesthesia Type Anesthesia Type: General Anesthesia Focused Assessment* Temperature: 98.0 F Pulse Rate: 69 Blood Pressure: 110/59 Respiratory Rate: 16 Pulse Ox: 96 Airway Assessment Mouth opens: >3 cm Mallampati Score: II Focused Labs Anesthesia Preop lab: CBC WBC 9.1 K/mm3 (4.4-11.0) 03/27/24 06:35 RBC 4.08 M/mm3 (4.6-6.2) L 03/27/24 06:35 Hgb 12.7 g/dL (13.0-16.5) L 03/27/24 06:35 Hct 38.8 % (40-54) L 03/27/24 06:35 Plt Count 174 K/mm3 (150-450) 03/27/24 06:35 CHEMISTRY Potassium 3.6 mmol/L (3.5-5.1) 03/27/24 06:35 Sodium 139 mmol/L (136-145) 03/27/24 06:35 Magnesium 1.4 mg/dL (1.6-2.6) L 03/26/24 02:15 BUN 24 mg/dL (7-18) H 03/27/24 06:35 Creatinine 1.60 mg/dL (0.70-1.30) H 03/27/24 06:35 Glucose 126 mg/dL (74-106) H 03/27/24 06:35 TSH 0.51 uIU/mL (0.358-3.74) 09/04/16 01:48 COAG PT 14.4 SECONDS (11.7-14.9) 03/26/24 02:15 Pre-Assessment Diagnosis/Proposed Procedure Planned Operative Procedure(s): ERCP Anesthesia History 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 When Was Last Pacemaker Check QUESTION #4 FULL TEXT: You/Your Family Experience fever (hyperthermia) with Anesthesia Last Oral Intake Last Oral intake: Last Oral Intake NPO since 00:01 03/27/24 11:14 Meds taken in AM with sips of Yes 03/27/24 11:14 water? 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 Female HX of Motion Sickness HX of N/V After Surgery Non-Smoker Duration of Surgery greater than 60 minutes Number of Risk Factors PONV Score Height & Weight Height & Weight: Anesthesia: Height & Weight Height 5 ft 10 in 03/27/24 11:14 Weight: 130.3 kg 03/27/24 11:14 Body Mass Index (BMI) 41.2 03/27/24 11:14 Respiratory Assessment Respiratory Assessment - concrete gun operator: Respiratory Tract Infection Hx - concrete gun operator Hx Respiratory Tract Infection No 03/27/24 11:14 STOP Sleep Apnea STOP Sleep Apnea - concrete gun operator: STOP Sleep Apnea - concrete gun operator Hx Hypertension Yes 03/26/24 08:34 Hx Sleep Apnea Yes 03/26/24 08:34 CPAP Yes 03/26/24 08:34 BIPAP No 03/26/24 08:34 Do you snore loudly (louder than talking or can be heard Do you often feel tired/ fatigued/ sleepy during daytime? Has anyone observed you stop breathing during sleep? STOP Results Positive 03/26/24 08:34 QUESTION #5 FULL TEXT : Do you snore loudly (louder than talking or can be heard through closed doors)? 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 Specify any problems Hx of Preganancy in last 3 N/A 03/26/24 08:34 Months Nurse Filling Out Transfusion ACOEY 03/26/24 08:34 & Questions: Date: 03/26/24 03/26/24 08:34 Time: 08:37 03/26/24 08:34 Patient unable to answer at this time (ie. confused, unrespo /Reproduction History /Reproductive History - concrete gun operator: /Reproductive Hx- concrete gun operator Hx Now Gestational Age (in weeks): EDC: Hx Hx Para Hx Section SAB Active Medications Active Medications: Current Medications Generic Name Dose Route Start Last Admin Trade Name Freq PRN Reason Stop Dose Admin Acetaminophen 650 mg 03/26/24 08:20 Acetaminophen 325 Mg Tablet PO Q6H PRN PRN Pain 1-10 Or Fever>100.7 Gabapentin 300 mg 03/26/24 10:00 03/27/24 10:22 Gabapentin 300 Mg Capsule PO 300 mg DAILY PRABHA Administration Sodium Chloride 500 mls @ 15 mls/hr 03/26/24 06:48 03/27/24 10:46 IV 15 mls/hr .[id number] PRN Infusion Saline Flush Sodium Chloride 500 mls @ 15 mls/hr 03/26/24 06:48 IV .[id number] PRN Additional IVPB Infusion Piperacillin Sod/Tazobactam 50 mls @ 12.5 mls/hr 03/26/24 14:00 03/27/24 08:49 Sod 3.375 gm/ Sodium Chloride IV Infused Q8 PRABHA Infusion Lactated Ringer's 1,000 mls @ 15 mls/hr 03/27/24 14:45 03/27/24 14:45 IV 04/02/24 04:04 15 mls/hr .Q48H PRABHA Administration Protocol Levothyroxine Sodium 100 mcg 03/26/24 10:00 03/27/24 04:50 Levothyroxine 100 Mcg Tablet PO 100 mcg DAILY@0600 PRABHA Administration Melatonin 3 mg 03/26/24 08:20 Melatonin 3 Mg Tablet PO QHS PRN PRN INSOMNIA Metoprolol Succinate 50 mg 03/26/24 10:00 03/27/24 10:18 Metoprolol(Xl)Succ 50 Mg Tablet PO 50 mg DAILY PRABHA Administration Protocol Ondansetron HCl 4 mg 03/26/24 08:20 Ondansetron 4 Mg/2 Ml Vial IV Q8H PRN PRN NAUSEA/VOMITING Sodium Chloride 10 - 40 ml 03/26/24 06:48 0.9% Saline Lock 10 Ml Syringe IV UD PRN SALINE FLUSH PFSH Medical History High cholesterol Hx of gastroesophageal reflux (GERD) Hypertension Hypothyroidism Home Medications ?Medication ?Instructions ?Recorded ?Last Taken ?Type lisinopril 40 mg tablet 40 mg PO DAILY 01/31/13 Unknown History atorvastatin 40 mg tablet 40 mg PO QHS ##90 09/05/16 Unknown Rx gabapentin 300 mg capsule 300 mg PO DAILY nerve pain 10/22/23 03/25/24 History metoprolol succinate 50 mg 50 mg PO DAILY 10/22/23 Unknown History tablet,extended release 24 hr apixaban 5 mg tablet (Eliquis) 5 mg PO BID 03/26/24 Unknown History hydrochlorothiazide 25 mg tablet 25 mg PO DAILY reduce fluid 03/26/24 03/25/24 History levothyroxine 125 mcg tablet 125 mcg PO DAILY disorder of 03/26/24 Unknown History thyroid gland Allergy/AdvReac Type Severity Reaction Status Date / Time azithromycin (From Zithromax) Allergy Itching Verified 03/26/24 02:00 Social History Smoking Status: Never smoker Review of Systems (Anesthesia) ROS Narrative System reviewed and no additional complaints, except as documented.
--- NOTE | 2024-03-27 16:52 | PN_ITS ---
Subjective Subjective Patient seen and examined. He had no active complaints. He had an uneventful night. Review of systems otherwise negative. He has remained hemodynamically stable. Bilirubin has trended downwards. Objective Data Objective Data Vital Signs: Vital Signs Temp Pulse Resp BP Pulse Ox O2 Del Method 98.0 F 69 16 110/59 L 96 Room Air 03/27/24 15:31 03/27/24 15:31 03/27/24 15:31 03/27/24 15:31 03/27/24 15:31 03/27/24 15:00 Oxygen Delivery Method Room Air Weight: 287 lb 4.197 oz Body Mass Index (BMI) 41.2 Intake & Output: Intake and Output for Last 24 Hours 03/25/24 03/26/24 03/27/24 23:59 23:59 23:59 Intake Total 1300 / 1300 100 / 100 Balance 1300 / 1300 100 / 100 Lab / Micro Data 03/27/24 06:35 03/27/24 06:35 Labs: Laboratory Results - last 24 hr 03/27/24 06:35: WBC 9.1, RBC 4.08 L, Hgb 12.7 L, Hct 38.8 L, MCV 95.1 H, MCH 31.1, MCHC 32.7, RDW Std Deviation 48.2 H, RDW Coeff of Gisella 13.8, Plt Count 174, MPV 9.4, Sodium 139, Potassium 3.6, Chloride 107, Carbon Dioxide 27.0, Anion Gap 5, BUN 24 H, Creatinine 1.60 H, Estim Creat Clear Calc 50.79, Est GFR (MDRD) Af Amer 54 L, Est GFR (MDRD) Non-Af 45 L, BUN/Creatinine Ratio 15.0, Glucose 126 H, Calcium 8.2 L, Total Bilirubin 1.50 H, AST 128 H, ALT 228 H, Alkaline Phosphatase 107, Total Protein 5.9 L, Albumin 2.6 L, Globulin 3.3, A lbumin/Globulin Ratio 0.8 L Radiography Diagnostic Testing: Radiology Impression MRCP 03/26/24 19:53 IMPRESSION: 1. Normal gallbladder and biliary tree. 2. Multiple pancreatic cysts involving the tail of the pancreas. RECOMMENDATIONS: Follow-up MRI in 12 months recommended to further evaluate the pancreatic cyst. Electronically Signed: Radu Carver MD at 11:08 EST , Physical Exam Const alert, oriented x3 and no apparent distress Constitutional Narrative: obese General Appearance: cooperative and comfortable HEENT normocephalic, head/scalp atraumatic, hearing grossly normal bilaterally, nasal mucous membranes and turbinates normal and moist oral mucous membranes Eyes PERRL, EOMs intact bilaterally and conjunctivae normal Neck full ROM, no lymphadenopathy and supple Lymph Lymphatic: no lymphadenopathy noted and no lymphedema noted Chest inspection of chest normal Resp normal respiratory effort, normal air movement, no use of accessory muscles and clear to auscultation bilaterally Cardio regular rate, regular rhythm, S1 normal heart sound, S2 normal heart sound, no murmurs and peripheral pulses 2+ throughout GI normal to inspection, nondistended, normoactive bowel sounds, soft to palpation, non-tender and non-distended Back/Spine normal ROM Extremity normal to inspection, full ROM, normal capillary refill, no clubbing, cyanosis or edema, no calf tenderness and no pedal edema General Extremity: no tenderness to palpation of joints or extremities Skin no rashes or lesions noted General Skin Exam: no breakdown Neuro CN's II-XII intact bilaterally, no focal motor deficits and no sensory deficits noted Motor Exam: strength 5/5 throughout and general weakness Psych mental status grossly normal, thought process normal and cooperative Appearance: appropriate Assessment & Plan Assessment/Plan (1) 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 * CT of the abdomen and pelvis showed lobulated 6 cm pancreatic tail hypoattenuating cystic appearing lesion previously measuring only up to 3 cm. Cystic neoplastic process is not excluded. * MRI of the abdomen showed normal gallbladder and multiple pancreatic cysts involving the tail of the pancreas. * currently NPO * liver enzymes are trending downwards. * on IV zosyn due to concerns about intra abdominal infection. * #Large pancreatic tail lesion * CT of the abdomen and pelvis showed a lesion in the pancreatic tail * it was noted to be bigger than previous * RUQ USG showed fatty infiltration of the liver with normal distended gallbladder and negative Robledo sign with no pericholecystic fluid. * MRI of the abdomen as above. Recommendation is for follow-up imaging in about 12 months to assess the pancreatic cyst. Will defer management to GI * #UTI * Urinalysis showed 2+ bacteria. Will get urine cultures. On IV Zosyn. * #Right renal lesion * CT abdomen and pelvis showed 3 cm axial facet anterior right interpolar renal lesion * Follow-up on outpatient basis for further imaging as needed. * #Elevated liver enzymes: * Total bilirubin has gone down from 4-1.5 today. AST and ALT as well as ALP also trending downwards. * I suspect patient may have had choledocholithiasis with a stone having passed. * Follow-up with GI to see if there is any further intervention planned. * * #Hypomagnesemia: was replaced. Will check Mg today. #CKD stage III, creatinine is 1.60 today. Baseline creatinine from September 2023 was 1.81. Will monitor. 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 This was held on admission due to concerns about him requiring an intervention. # hypertension: On lisinopril and metoprolol. Lisinopril held due to positive orthostatics on admission # Hyperlipidemia: Atorvastatin held due to elevated liver enzymes #Hypothyroidism: On Synthroid #Peripheral neuropathy: On gabapentin #Morbid obesity: BMI is 41. Complicates acute care, expected recovery and prognosis. DVT prophylaxis: SCDs Charges/Coding Visit Charges Inpatient E&M: 05045 Subs Hosp L2
--- NOTE | 2024-03-27 17:26 | OP.CCLET_ITS ---
03/27/2024 Salvador Diaz Re : ERCP procedure for Moi Lopez Ofeliar Joe This procedure was performed on Wednesday, March 27, 2024. My impressions and recommendations are as follows: Impressions : - The entire main bile duct and left main hepatic duct were dilated, with a stone causing an obstruction. - Choledocholithiasis was found. Complete removal was accomplished by biliary sphincterotomy and balloon extraction. - A pancreatic sphincterotomy was performed. - The ventral pancreatic duct was swept and debris was found. - A biliary sphincterotomy was performed. - The biliary tree was swept. - One temporary stent was placed into the common bile duct. Recommendations : My findings are described in the full procedure note, which is enclosed. If I can be of further assistance, please feel free to contact me at . Sincerely, Alex Sher, 03/27/2024 5:26:00 PM This report has been signed electronically.
--- NOTE | 2024-03-27 17:26 | OP.ERCP_ITS ---
Patient Name: Moi Lopez Procedure Date: 03/27/2024 4:21 PM Date of : 1945 Age: 78 Procedure: ERCP Indications: Common bile duct stone(s), Abnormal MRCP, Jaundice, Elevated liver enzymes, Acute pancreatitis Providers: Alex Sher DO Medicines: Monitored Anesthesia Care Patient Profile: This is a 78 year old male. Refer to note in patient chart for documentation of history and physical. Patient has symptoms of acute right upper quadrant abdominal pain, acute jaundice, acute nausea and acute vomiting. This patient has no history of surgical alteration of the upper digestive tract anatomy. This patient has no history of previous ERCP. Complications: No immediate complications. Procedure: Pre-Anesthesia Assessment: - Prior to the procedure, a History and Physical was performed, and patient medications and allergies were reviewed. The patient is competent. The risks and benefits of the procedure and the sedation options and risks were discussed with the patient. All questions were answered and informed consent was obtained. Patient identification and proposed procedure were verified by the physician in the pre-procedure area. Mental Status Examination: alert and oriented. Prophylactic Antibiotics: The patient does not require prophylactic antibiotics. Prior Anticoagulants: The patient has taken no anticoagulant or antiplatelet agents except for NSAID medication. ASA Grade Assessment: II - A patient with mild systemic disease. After reviewing the risks and benefits, the patient was deemed in satisfactory condition to undergo the procedure. The anesthesia plan was to use monitored anesthesia care (MAC). Immediately prior to administration of medications, the patient was re-assessed for adequacy to receive sedatives. The heart rate, respiratory rate, oxygen saturations, blood pressure, adequacy of pulmonary ventilation, and response to care were monitored throughout the procedure. The physical status of the patient was re-assessed after the procedure. After obtaining informed consent, the scope was passed under direct vision. Throughout the procedure, the patient's blood pressure, pulse, and oxygen saturations were monitored continuously. The Duodenoscope was introduced through the mouth, and advanced to the duodenum and used to inject contrast into the bile duct and ventral pancreatic duct. The ERCP was accomplished without difficulty. The patient tolerated the procedure well. 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 The esophagus was successfully intubated under direct vision. The scope was advanced to a normal major papilla in the descending duodenum without detailed examination of the pharynx, larynx and associated structures, and upper GI tract. The upper GI tract was grossly normal. The ventral pancreatic duct was deeply cannulated with the short-nosed traction sphincterotome. Contrast was injected. I personally interpreted the pancreatic duct images. There was brisk flow of contrast through the ducts. Image quality was adequate. Contrast extended to the pancreatic duct. Opacification of the entire pancreatic ductal system was successful. The maximum diameter of the ducts was 2 mm. The entire opacified area was normal. A long 0.025 inch Jagwire was passed into the ventral pancreatic duct. A 5 mm ventral pancreatic sphincterotomy was made with a traction (standard) sphincterotome using ERBE electrocautery. There was no post-sphincterotomy bleeding. To find object(s) the ventral pancreatic duct was swept with a 6 mm balloon starting at the pancreatic duct in the tail of the pancreas. Debris was swept from the duct. A long 0.025 inch Jagwire was passed into the biliary tree. The short-nosed traction sphincterotome was passed over the guidewire and the bile duct was then deeply cannulated. Contrast was injected. Opacification of the entire biliary tree except for the gallbladder, left main hepatic duct, right main hepatic duct, left and right hepatic ducts and all intrahepatic branches and entire biliary tree was successful. The maximum diameter of the ducts was 10 mm. The lower third of the main bile duct contained one stone, which was 5 mm in diameter. The main bile duct and left main hepatic duct were diffusely dilated, with a stone causing an obstruction. The largest diameter was 5 mm. A 5 mm biliary sphincterotomy was made with a traction (standard) sphincterotome using ERBE electrocautery. There was no post-sphincterotomy bleeding. The biliary tree was swept with a 12 mm balloon starting at the bifurcation. Sludge was swept from the duct. All stones were removed. One 10 Fr by 5 cm temporary stent was placed 5 cm into the common bile duct. Bile flowed through the stent. The stent was in good position. Impression: - The entire main bile duct and left main hepatic duct were dilated, with a stone causing an obstruction. - Choledocholithiasis was found. Complete removal was accomplished by biliary sphincterotomy and balloon extraction. - A pancreatic sphincterotomy was performed. - The ventral pancreatic duct was swept and debris was found. - A biliary sphincterotomy was performed. - The biliary tree was swept. - One temporary stent was placed into the common bile duct. Procedure Code(s): --- Professional --- 42228, Endoscopic retrograde cholangiopancreatography (ERCP); with placement of endoscopic stent into biliary or pancreatic duct, including pre- and post-dilation and guide wire passage, when performed, including sphincterotomy, when performed, each stent 14705, 51, Endoscopic retrograde cholangiopancreatography (ERCP); with removal of calculi/debris from biliary/pancreatic duct(s) 03858, 59, Endoscopic retrograde cholangiopancreatography (ERCP); with sphincterotomy/papillotomy 88464, 26, Endoscopic catheterization of the pancreatic ductal system, radiological supervision and interpretation CPT copyright 2021 [employer]. All rights reserved. The codes documented in this report are preliminary and upon traffic sergeant review may be revised to meet current compliance requirements. Alex Sher DO 03/27/2024 5:26:00 PM This report has been signed electronically. Number of Addenda: 0 Note Initiated On: 03/27/2024 4:21 PM
--- NOTE | 2024-03-27 17:36 | PCM.POST.ANE ---
Anesthesia: Postop Eval I Current Vital Signs Temperature: 97.5 F Pulse Rate: 84 Blood Pressure: 154/81 Respiratory Rate: 16 Pulse Ox: 93 Oxygen Delivery Method: Room Air Assessment Airway patent: Yes Spontaneous unlabored respirations: Yes Mental status: Awake and Calm nausea: No Vomiting: No Anesthesia Complication: No Fluid Hydration Crystalloid volume administer (ml): 700 Total IV fluid infused: 700 Progress Note Anesthesia document: Postop Eval 1 completed: Yes
--- NOTE | 2024-03-27 17:43 | PCM.POSTANE2 ---
Anesthesia Postop Eval I Sum Postop Eval Completion status Anesthesia document: Postop Eval 1 completed: Yes Anesthesia Postop Eval I Summary Anesthesia Postop Eval I Summary: Anesthesia Postop Eval I: Assessment Summary Airway patent Yes 03/27/24 17:37 [email or web address] Spontaneous unlabored Yes 03/27/24 17:37 [email or web address] respirations Mental status Awake,Calm 03/27/24 17:37 [email or web address] nausea No 03/27/24 17:37 [email or web address] Vomiting No 03/27/24 17:37 [email or web address] Anesthesia Postop Eval I: Fluid Summary Crystalloid volume administer 700 03/27/24 17:37 [email or web address] (ml) Colloids volume administered ( ml) Blood Product volume administered (ml) Total IV fluid infused 700 03/27/24 17:37 [email or web address] Anesthesia Postop Eval I: Summary Notes Anesthesia Complication No 03/27/24 17:37 [email or web address] Anesthesia Complication Comment: Post-operative progress note Anesthesia: Postop Eval II Evaluation Mental status: Awake Pain Level: 0 nausea: No Vomiting: No
[2024-03-27 17:45] LABS: Magnesium 2.6 mg/dL (1.6-2.6)
[2024-03-27] MEDS: MELATONIN 3 MG TABLET PO (21:40)
[2024-03-28 02:30] VITALS: BP 104/56; PULSE 63; RESP 13; TEMP 36.6; O2SAT 94
[2024-03-28 02:32] VITALS: BMI 41.2
[2024-03-28 04:08] LABS: Carbohydrate AG 19-9 < 2 U/mL (0-35)
[2024-03-28] MEDS: Levothyroxine 100 MCG Tablet PO (05:20)
[2024-03-28] MEDS: Piperacil/Tazobactam 3.375 GM in 0.9% Normal Saline (50mL MB+) 50 ML IV (05:20)
[2024-03-28 06:30] VITALS: BMI 41.2
[2024-03-28 07:25] LABS: Absolute Lymphocyte Count 1.08 X10^3/uL (0.83-4.51); Absolute Neutrophil Count 8.8 X10^3/uL (2.0-7.7); Basophil# 0.01 X10^3/uL; Basophil% 0.1 % (0-1); Hematocrit 39.3 % (40-54); Hemoglobin 13.3 g/dL (13.0-16.5); Lymphocyte # 1.08 X10^3/ul (0.83-4.51); Lymphocyte % 10.3 % (19-41); Mean Corp Hgb Conc 33.8 g/dL (32-36); Mean Corpuscular Hgb 31.7 pg (27.0-32.0); Mean Corpuscular Volume 93.6 fL (80-94); Mean Platelet Vol. 10.1 fl (6.2-12.0); Monocyte# 0.55 X10^3/uL; Monocyte% 5.2 % (0-10); NRBC Flagged by Analyzer 0 % (0-5); Neutrophil # 8.83 X10^3/uL (2.7-7.7); Neutrophil % 83.8 % (47-70); Platelet Count 210 K/mm3 (150-450); RBC Distribution Width CV 13.4 % (11.6-14.6); RBC Distribution Width SD 45.4 fl (35.1-43.9); White Blood Count 10.5 K/mm3 (4.4-11.0)
[2024-03-28 07:46] LABS: Anion Gap 7 (5-15); BUN 24 mg/dL (7-18); BUN/Creat Ratio 16.3 RATIO (10-20); Calcium,Total 8.5 mg/dL (8.5-10.1); Chloride 106 mmol/L (98-107); Creatinine, Serum 1.47 mg/dL (0.70-1.30); EST Glomerular Filtration Rate 49 mL/min (>60); Est Glom Filt Rate - Afr Amer 59 mL/min (>60); Estimated Creatinine Clearance 55.28 ml/min; Glucose 142 mg/dL (74-106); Potassium 4.1 mmol/L (3.5-5.1); Sodium Level 138 mmol/L (136-145)
--- NOTE | 2024-03-28 08:20 | CON.PCM.SX_ITS ---
Assessment & Plan Assessment/Plan (1) Choledocholithiasis: PLAN: The patient had ERCP with removal of stone common duct. Patient is currently not having any pain. Patient had MRCP that did not show any other stones in his gallbladder. At this time I do not believe he needs cholecystectomy. He may follow-up with me to discuss this as an outpatient in the future. Okay for DC from my standpoint. I ordered him a regular diet. Mario Avalos MD Pager: [facility] [address] [place] [address] [address] [place], [address] [place] [address] Office: HPI Consult Data Date of Consult: 03/28/24 HPI Narrative HPI Narrative: FRAN PAREKH, is a 78 M who presents with abdominal pain and patient had an ERCP that showed choledocholithiasis. Before the procedure the patient had MRCP that did not show any stones. Currently the patient is having no abdominal pain. [facility] Medical History High cholesterol Hx of gastroesophageal reflux (GERD) Hypertension Hypothyroidism Home Medications ?Medication ?Instructions ?Recorded ?Last Taken ?Type lisinopril 40 mg tablet 40 mg PO DAILY 01/31/13 Unknown History atorvastatin 40 mg tablet 40 mg PO QHS ##90 09/05/16 Unknown Rx gabapentin 300 mg capsule 300 mg PO DAILY nerve pain 10/22/23 03/25/24 History metoprolol succinate 50 mg 50 mg PO DAILY 10/22/23 Unknown History tablet,extended release 24 hr apixaban 5 mg tablet (Eliquis) 5 mg PO BID 03/26/24 Unknown History hydrochlorothiazide 25 mg tablet 25 mg PO DAILY reduce fluid 03/26/24 03/25/24 History levothyroxine 125 mcg tablet 125 mcg PO DAILY disorder of 03/26/24 Unknown History thyroid gland Allergy/AdvReac Type Severity Reaction Status Date / Time azithromycin (From Zithromax) Allergy Itching Verified 03/26/24 02:00 Social History Smoking Status: Never smoker Physical Exam Const alert and oriented x3 HEENT normocephalic Eyes PERRL Lymph Lymphatic: no lymphadenopathy noted Resp normal respiratory effort Cardio Rate: regular rate Rhythm: regular rhythm GI soft to palpation and non-tender Extremity normal to inspection Neuro CN's II-XII intact bilaterally Lab / Micro Data 03/28/24 06:15 03/28/24 06:15 Labs: Laboratory Results - last 24 hr 03/27/24 06:35: Magnesium 2.6, CA 19-9 Antigen < 2 03/28/24 06:15: WBC 10.5, RBC 4.20 L, Hgb 13.3, Hct 39.3 L, MCV 93.6, MCH 31.7, MCHC 33.8, RDW Std Deviation 45.4 H, RDW Coeff of Gisella 13.4, Plt Count 210, MPV 10.1, Immature Gran % (Auto) 0.600, Neut % (Auto) 83.8 H, Lymph % (Auto) 10.3 L, [place] % (Auto) 5.2, Eos % (Auto) 0.0, Baso % (Auto) 0.1, Absolute Neuts (auto) 8.8 H, Absolute Lymphs (auto) 1.08, Nucleated RBC % 0, Sodium 138, Potassium 4.1, Chloride 106, Carbon Dioxide 25.0, Anion Gap 7, BUN 24 H, Creatinine 1.47 H , Estim Creat Clear Calc 55.28, Est GFR (MDRD) Af Amer 59 L, Est GFR (MDRD) Non- Af 49 L, BUN/Creatinine Ratio 16.3, Glucose 142 H, Calcium 8.5 Imaging Radiology Impression MRCP 03/26/24 19:53 IMPRESSION: 1. Normal gallbladder and biliary tree. 2. Multiple pancreatic cysts involving the tail of the pancreas. RECOMMENDATIONS: Follow-up MRI in 12 months recommended to further evaluate the pancreatic cyst. Electronically Signed: Radu Carver MD at 11:08 EST , Endo Retro Cholangiopancreatogram 03/27/24 14:35 IMPRESSION: There is no evidence of retained stones in the common bile duct. Moderate enlargement of the common bile duct of uncertain significance. Electronically Signed: Lilian Lentz MD at 0:20 EST ,
[2024-03-28 09:00] VITALS: BP 116/75; PULSE 62; RESP 16; TEMP 36.4; O2SAT 95
[2024-03-28 09:15] VITALS: PULSE 70
[2024-03-28] MEDS: Gabapentin 300 MG Capsule PO (09:15)
[2024-03-28] MEDS: APIXABAN 5 MG TABLET PO (09:15)
[2024-03-28] MEDS: Metoprolol(XL)Succ 50 MG Tablet PO (09:15)
[2024-03-28 10:32] VITALS: BMI 41.2
--- NOTE | 2024-03-28 12:13 | DCINST_ITS ---
Discharge Instructions Diet Discharge Diet: Low fat / Low cholesterol DC O2, CPAP, BIPAP needs Additional Home O2 Discharge instructions: No Dressing / Incision Discharge Activity: Return to Normal Activity Weight Bearing Status: Weight bearing as tolerated Dressing / Incision Call your doctor if you observe: Fever of 101 or Higher, Shortness of breath, Dizziness and Uncontrolled pain Follow Up Care Test Results: Test results from this visit will be discussed in further detail at your follow- up appointment, if applicable. Discharge Plan Admission Admit Date/Time: 03/26/24 06:13 Primary Reason for Your Visit: acute pancreatitis, acute choledocholithiasis Attending Provider: Altagracia Lo Primary Care Provider: Salvador Diaz Consulting Providers: Andrea Serrano; Beau Pike Instructions Patient Instructions: Pancreatic Pseudocysts, Pancreatitis Acute Dc Discharge Orders/Prescriptions Prescriptions: New cefdinir 300 mg capsule 300 mg PO BID Qty: 10 0RF Continued lisinopril 40 MG tablet 40 mg PO DAILY Patient Comments: BLOOD PRESSURE atorvastatin 40 MG tablet 40 mg PO QHS Qty: 90 0RF Eliquis 5 mg tablet 5 mg PO BID levothyroxine 125 mcg tablet 125 mcg PO DAILY hydrochlorothiazide 25 mg tablet 25 mg PO DAILY gabapentin 300 mg capsule 300 mg PO DAILY Patient Comments: takes at hs metoprolol succinate 50 mg tablet extended release 24 hr 50 mg PO DAILY Referrals / Follow Up: Salvador Diaz MD [Primary Care Provider] - Within 1 Week Alex Sher DO [Med Staff - Active Staff] - Within 1 Week Disposition Disposition (needs filled in before D/C Order can be placed): Home, Self Care
--- NOTE | 2024-03-28 12:14 | DS.PCM_ITS ---
Providers Date of Admission: 03/26/24 Date of Discharge: 03/28/24 Primary Care Physician: Dr. Salvador Diaz MD Consultations 03/26/24 07:18 Consult: Gastroenterology Routine Consulting Provider: [facility] Reason for Consult: elevated LFTs, concern for pancreatitis EMERGENT Consult: No Notified: Yes Date Notified: 03/26/24 Time Notified: 07:19 Method of Notification: ED Physician Initiated 03/27/24 18:11 Consult: General Surgery Routine Consulting Provider: Beau Pike Reason for Consult: cholecystitis and cholelithiasis EMERGENT Consult: No Notified: Yes Date Notified: 03/27/24 Time Notified: 18:11 Method of Notification: Verbal Reason For Visit: ABDOMINAL PAIN W/ ELEVATED LFT'S Diagnosis Discharge Diagnosis (1) Choledocholithiasis: Status: Acute Code(s): K80.50 - Calculus of bile duct without cholangitis or cholecystitis without obstruction Plan #Probable acute pancreatitis * admitted with a complaint of abdominal pain * lipase was elevated. * CT of the abdomen and pelvis showed lobulated 6 cm pancreatic tail hypoattenuating cystic appearing lesion previously measuring only up to 3 cm. Cystic neoplastic process is not excluded. * MRI of the abdomen showed normal gallbladder and multiple pancreatic cysts involving the tail of the pancreas. * currently NPO * liver enzymes are trending downwards. * on IV zosyn due to concerns about intra abdominal infection. * #Large pancreatic tail lesion * CT of the abdomen and pelvis showed a lesion in the pancreatic tail * it was noted to be bigger than previous * RUQ USG showed fatty infiltration of the liver with normal distended gallbladder and negative Robledo sign with no pericholecystic fluid. * MRI of the abdomen as above. Recommendation is for follow-up imaging in about 12 months to assess the pancreatic cyst. Will defer management to GI * #UTI * Urinalysis showed 2+ bacteria. Will get urine cultures. On IV Zosyn. * #Right renal lesion * CT abdomen and pelvis showed 3 cm axial facet anterior right interpolar renal lesion * Follow-up on outpatient basis for further imaging as needed. * #Elevated liver enzymes: * Total bilirubin has gone down from 4-1.5 today. AST and ALT as well as ALP also trending downwards. * I suspect patient may have had choledocholithiasis with a stone having passed. * Follow-up with GI to see if there is any further intervention planned. * * #Hypomagnesemia: was replaced. Will check Mg today. #CKD stage III, creatinine is 1.60 today. Baseline creatinine from September 2023 was 1.81. Will monitor. 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 This was held on admission due to concerns about him requiring an intervention. # hypertension: On lisinopril and metoprolol. Lisinopril held due to positive orthostatics on admission # Hyperlipidemia: Atorvastatin held due to elevated liver enzymes #Hypothyroidism: On Synthroid #Peripheral neuropathy: On gabapentin #Morbid obesity: BMI is 41. Complicates acute care, expected recovery and prognosis. DVT prophylaxis: SCDs Medications at Discharge Home Medications lisinopril 40 mg tablet 40 mg PO DAILY blood pressure 01/31/13 atorvastatin 40 mg tablet 40 mg PO QHS cholesterol #90 TABLETS 09/05/16 gabapentin 300 mg capsule 300 mg PO DAILY nerve pain 10/22/23 metoprolol succinate 50 mg tablet,extended release 24 hr 50 mg PO DAILY blood pressure 10/22/23 apixaban 5 mg tablet (Eliquis) 5 mg PO BID blood thinner 03/26/24 hydrochlorothiazide 25 mg tablet 25 mg PO DAILY reduce fluid 03/26/24 levothyroxine 125 mcg tablet 125 mcg PO DAILY disorder of thyroid gland 03/26/24 cefdinir 300 mg capsule 300 mg PO BID #10 caps 03/28/24 Hospital Course Operations ERCP Summary of Care Provided Minutes Spent on Discharge: 45 Hospital Course: Patient is a 78-year-old male with past medical history as outlined was admitted through the ED on 03/26/2024 with a complaint of abdominal pain, nausea, vomiting and dizziness. His symptoms are started at home on the day prior to admission. He lost his balance and fell into a table. He called his neighbors and they came and helped him into bed. He slept well overnight and felt fine in the morning but after eating a salad he subsequently started to have epigastric to right upper quadrant abdominal pain and had nausea and vomiting as well. He became dizzy and lightheaded after the nausea and vomiting. Review of systems otherwise negative. In the ED orthostatics were positive. CT of the abdomen and pelvis showed a lobulated 6 cm pancreatic tail cystic appearing lesion that was larger compared to previous CT scan but showed no acute gallbladder or liver pathology. Labs were significant for elevated bilirubin with total bilirubin being 4 and direct bilirubin being elevated at 2.5. AST, ALT and ALP also elevated. Lipase was also elevated and white cell count was mildly elevated. He was admitted and managed for acute pancreatitis. He was started on IV Zosyn for possible intra-abdominal infection. Gastroenterology was consulted and requested a gallbladder ultrasound. The gallbladder ultrasound only showed fatty infiltration of the liver. He did have an MRCP which showed normal gallbladder and multiple pancreatic cysts involving the tail of the pancreas but showed no stones. Liver enzymes started trending downwards. He did have an ERCP by GI which showed choledocholithiasis which was completely removed by biliary sphincterotomy and balloon extraction. His entire main bile duct and left main hepatic duct were dilated with a stone causing the obstruction. He also had a pancreatic sphincterotomy and ventral pancreatic duct was swept and debris found. He had a temporary stents placed into the common bile duct. He remained stable and was discharged home on 03/28/2024. Of note his urinalysis has shown evidence of UTI and this was covered by the antibiotics he received. On discharge she was switched to p.o. cefdinir 300 mg twice daily for 5 days. Urine culture was ordered but had still not been done at time of discharge. Patient seen and examined prior to discharge. He felt much better and had no complaints. He had an uneventful night. Review of systems otherwise negative. Labs and vitals reviewed. Home medication reviewed and reconciled. Physical Exam Const alert, oriented x3 and no apparent distress Constitutional Narrative: obese General Appearance: cooperative and comfortable Orientation / Consciousness: awake Exam Limitations: no limitations HEENT normocephalic, head/scalp atraumatic, hearing grossly normal bilaterally, nasal mucous membranes and turbinates normal and moist oral mucous membranes Mouth: oral and palatal mucosa normal Eyes PERRL, EOMs intact bilaterally and conjunctivae normal Neck full ROM, no lymphadenopathy and supple Lymph Lymphatic: no lymphadenopathy noted and no lymphedema noted Chest inspection of chest normal Resp normal respiratory effort, normal air movement, no retractions, no use of accessory muscles and clear to auscultation bilaterally Cardio regular rate, regular rhythm, S1 normal heart sound, S2 normal heart sound, no murmurs and peripheral pulses 2+ throughout GI normal to inspection, nondistended, normoactive bowel sounds, soft to palpation, non-tender and non-distended Back/Spine normal ROM Extremity normal to inspection, full ROM, normal capillary refill, no clubbing, cyanosis or edema, no calf tenderness and no pedal edema General Extremity: no tenderness to palpation of joints or extremities Skin no rashes or lesions noted General Skin Exam: no breakdown Neuro oriented x3, CN's II-XII intact bilaterally, moves all extremities, no focal motor deficits and no sensory deficits noted Sensorium / Orientation: awake Motor Exam: strength 5/5 throughout and general weakness Psych mental status grossly normal, thought process normal and cooperative Appearance: appropriate Weight / BMI Weight Weight: 287 lb 4.197 oz Body Mass Index (BMI) 41.2 ABG / Lab / Microbiology Data 03/28/24 06:15 03/28/24 06:15 Laboratory: Laboratory Results - last 24 hr 03/27/24 06:35: Magnesium 2.6, CA 19-9 Antigen < 2 03/28/24 06:15: WBC 10.5, RBC 4.20 L, Hgb 13.3, Hct 39.3 L, MCV 93.6, MCH 31.7, MCHC 33.8, RDW Std Deviation 45.4 H, RDW Coeff of Gisella 13.4, Plt Count 210, MPV 10.1, Immature Gran % (Auto) 0.600, Neut % (Auto) 83.8 H, Lymph % (Auto) 10.3 L, [place] % (Auto) 5.2, Eos % (Auto) 0.0, Baso % (Auto) 0.1, Absolute Neuts (auto) 8.8 H, Absolute Lymphs (auto) 1.08, Nucleated RBC % 0, Sodium 138, Potassium 4.1, Chloride 106, Carbon Dioxide 25.0, Anion Gap 7, BUN 24 H, Creatinine 1.47 H , Estim Creat Clear Calc 55.28, Est GFR (MDRD) Af Amer 59 L, Est GFR (MDRD) Non- Af 49 L, BUN/Creatinine Ratio 16.3, Glucose 142 H, Calcium 8.5 Radiography Diagnostic Testing: Radiology Impression Endo Retro Cholangiopancreatogram 03/27/24 14:35 IMPRESSION: There is no evidence of retained stones in the common bile duct. Moderate enlargement of the common bile duct of uncertain significance. Electronically Signed: Lilian Lentz MD at 0:20 EST , D/C Instructions Discharge Diet: Low fat / Low cholesterol Discharge Activity: Return to Normal Activity Weight Bearing Status: Weight bearing as tolerated Call your doctor if you observe: Fever of 101 or Higher, Shortness of breath, Dizziness and Uncontrolled pain DC O2, CPAP, BIPAP Needs Additional Home O2 Discharge instructions: No DC home with Oxygen: No Meaningful Use Info Meaningful Use Meaningful Use Diagnoses (Choose all that apply): None applicable Ischemic Stroke Statin Dosing Therapy Reference: STATIN DOSE THERAPY REFERENCE: * Patients > 75 years receive moderate or high dose statin therapy. * Patients 75 years or YOUNGER should receive HIGH intensity statin dose unless contraindicated. You will be required to document reason for non-treatment if statin daily dose does not meet guidelines. HIGH DOSE STATIN THERAPY DAILY Atorvastatin > than or = to 40 mg Rosuvastatin > than or = to 20 mg Amlodipine + Atorvastatin > than or = to 2.5/40 mg Ezetimibe + Simvastatin 10/80 mg Simvastatin 80mg Discharge Plan Admission Admit Date/Time: 03/26/24 06:13 Primary Reason for Your Visit: acute pancreatitis, acute choledocholithiasis Attending Provider: Altagracia Lo Primary Care Provider: Salvador Diaz Consulting Providers: Andrea Serrano; Beau Pike Instructions Patient Instructions: Pancreatic Pseudocysts, Pancreatitis Acute Dc Discharge Orders/Prescriptions Prescriptions: New cefdinir 300 mg capsule 300 mg PO BID Qty: 10 0RF Continued lisinopril 40 MG tablet 40 mg PO DAILY Patient Comments: BLOOD PRESSURE atorvastatin 40 MG tablet 40 mg PO QHS Qty: 90 0RF Eliquis 5 mg tablet 5 mg PO BID levothyroxine 125 mcg tablet 125 mcg PO DAILY hydrochlorothiazide 25 mg tablet 25 mg PO DAILY gabapentin 300 mg capsule 300 mg PO DAILY Patient Comments: takes at hs metoprolol succinate 50 mg tablet extended release 24 hr 50 mg PO DAILY Referrals / Follow Up: Salvador Diaz MD [Primary Care Provider] - Within 1 Week Alex Sher DO [Med Staff - Active Staff] - Within 1 Week Disposition Disposition (needs filled in before D/C Order can be placed): Home, Self Care Charges/Coding Visit Charges Inpatient E&M: 19357 Disch Hosp >30min
[2024-03-28 14:00] VITALS: BP 125/75; PULSE 62; RESP 16; TEMP 36.6; O2SAT 96
== END 2024-03-28 14:09 | disposition home or self-care (01) | DRG 438 ==
LOC: ED 06:18 → PCU 06:26
PROVIDERS: Internal Medicine Gastroenterology; Admitting Provider Hospitalist; Emergency Provider Emergency Medicine; PCP Family Medicine; Visit Provider Student in an Organized Health Care Education/Training Program
PROC: 0F798DZ Dilation of Common Bile Duct with Intraluminal Device, Via Natural or Artificial Opening Endoscopic (ICD-10-PCS; CPT 43260; principal; 2024-03-27 15:25)
DX: K86.89 Other specified diseases of pancreas (principal); I26.99 Other pulmonary embolism without acute cor pulmonale; Z68.41 Body mass index [BMI] 40.0-44.9, adult; E03.9 Hypothyroidism, unspecified; I10 Essential (primary) hypertension; K76.0 Fatty (change of) liver, not elsewhere classified; K80.50 Calculus of bile duct without cholangitis or cholecystitis without obstruction; E86.0 Dehydration; E66.01 Morbid (severe) obesity due to excess calories; E78.00 Pure hypercholesterolemia, unspecified; R11.2 Nausea with vomiting, unspecified; G62.9 Polyneuropathy, unspecified; W01.190A Fall on same level from slipping, tripping and stumbling with subsequent striking against furniture, initial encounter; K21.9 Gastro-esophageal reflux disease without esophagitis; J34.9 Unspecified disorder of nose and nasal sinuses; K57.30 Diverticulosis of large intestine without perforation or abscess without bleeding; Z79.890 Hormone replacement therapy; R55 Syncope and collapse; Z88.1 Allergy status to other antibiotic agents; Z79.01 Long term (current) use of anticoagulants; Z79.899 Other long term (current) drug therapy; Y92.003 Bedroom of unspecified non-institutional (private) residence as the place of occurrence of the external cause
CPT/HCPCS: 36415; 70450; 74177; 74181; 74330; 76000; 76705; 80048; 80053; 80076; 81001; 83690; 83735; 85025; 85027; 85610; 85730; 86301; 94668; 99285; J7030; J7040; J7120; Q9967; A4216; J2405

== ENCOUNTER 2024-07-04 08:24 | Day surgery (SDC) | payer MEDICARE, OTHER, SELFPAY ==
--- NOTE | 2024-07-02 15:49 | PAT.ANE_ITS ---
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 07/02/24 14:53 Any Problems With Anesthesia No 07/02/24 14:53 Cholinesterase deficiency No 07/02/24 14:53 You/Your Family Experience No 07/02/24 14:53 fever (hyperthermia) with Relationship Recent Exposure to Contagious No 03/27/24 11:14 Disease Does patient have nerve No 07/02/24 14:53 stimulator Patient instructed to have device shut off --Does patient have Pacemaker or ICD? When Was Last Pacemaker Check QUESTION #4 FULL TEXT: You/Your Family Experience fever (hyperthermia) with Anesthesia Last Oral Intake Last Oral intake: Last Oral Intake NPO since Meds taken in AM with sips of water? 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 Female No 07/02/24 14:53 HX of Motion Sickness No 07/02/24 14:53 HX of N/V After Surgery No 07/02/24 14:53 Non-Smoker Yes 07/02/24 14:53 Duration of Surgery greater No 07/02/24 14:53 than 60 minutes Number of Risk Factors 1 07/02/24 14:53 PONV Score Low Risk 07/02/24 14:53 Height & Weight Height & Weight: Anesthesia: Height & Weight Height 5 ft 10 in 03/27/24 11:14 Respiratory Assessment Respiratory Assessment - cross country truck driver: Respiratory Tract Infection Hx - cross country truck driver Hx Respiratory Tract Infection No 07/02/24 14:53 STOP Sleep Apnea STOP Sleep Apnea - 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 Has anyone observed you stop breathing during sleep? STOP Results Positive 07/02/24 14:53 QUESTION #5 FULL TEXT : Do you snore loudly (louder than talking or can be heard through closed doors)? 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 Specify any problems Hx of Preganancy in last 3 N/A 07/02/24 14:53 Months Nurse Filling Out Transfusion [id number] 07/02/24 14:53 & Questions: Date: 07/02/24 07/02/24 14:53 Time: 14:59 07/02/24 14:53 Patient unable to answer at this time (ie. 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: /Reproductive Hx- cross country truck driver Hx Now Gestational Age (in weeks): EDC: Hx Hx Para Hx Section SAB PFSH Medical History (Updated 07/02/24 @ 15:06 by Jude Nguyen) Carpal tunnel syndrome on both sides Cancer Wears glasses Thyroid disease Shingles Inguinal hernia Cardiology follow-up encounter History of stress test Choledocholithiasis Current use of long-term 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 Elevated liver enzymes Pancreatic mass High cholesterol Hx of gastroesophageal reflux (GERD) Hypothyroidism Hypertension Home Medications ?Medication ?Instructions ?Recorded ?Last Taken ?Type lisinopril 40 mg tablet 40 mg PO DAILY blood pressur e 01/31/13 Unknown History atorvastatin 40 mg tablet 40 mg PO QHS cholesterol #90 09/05/16 Unknown Rx TABLETS gabapentin 300 mg capsule 300 mg PO QHS nerve pain 03/25/24 History metoprolol succinate 50 mg 50 mg PO DAILY blood pressu re 10/22/23 Unknown History tablet,extended release 24 hr apixaban 5 mg tablet (Eliquis) 5 mg PO BID blood thinn er 03/26/24 Unknown History hydrochlorothiazide 25 mg tablet 25 mg PO DAILY reduce fluid 03/26/24 03/25/24 History levothyroxine 125 mcg tablet 125 mcg PO DAILY disorder of 03/26/24 Unknown History thyroid gland Allergy/AdvReac Type Severity Reaction Status Date / Time azithromycin (From Zithromax) Allergy Itching Verified 07/02/24 14:49 bee venom protein (honey bee) AdvReac Swelling Verified 07/02/24 14:50 venom-wasp (wasps) AdvReac Swelling Verified 07/02/24 14:50 Social History Smoking Status: Never smoker Audit: Pertinent Findings Pertinent Findings EKG Perinent findings: October 22, 2023. Normal sinus rhythm. Nonspecific ST changes. Stress test pertinent findings: September 05, 2016. Ejection fraction 61%. No ischemia. Recommendation Anesthesia Recommendation Anesthesia recommendation: OPTIMIZED for anesthesia
[2024-07-04] VITALS (10 sets, daily range): BP systolic 114–147; BP diastolic 59–89; PULSE 57–75; RESP 12–18; TEMP 36.3–36.6; O2SAT 93–97; BMI 42.0
--- NOTE | 2024-07-04 | MISC_PTH ---
PATIENT: FRAN LOPEZ LOC: EN U#:[id number] AGE/SX: 78/M ROOM: RE07/04/[address]: Dr. Alex Sher DO : 1945 BED: DIS: 07/04/2024 SPEC #: [id number] RECD: 07/04/24 13:51 STATUS: PAPITO REChase #: [id number] KATE: 07/04/24 00:[address]: Alex Sher DEPT: SURGICAL PATHOLOGY RECD BY: Nadeem Bruce ENTERED: 07/04/24 13:52 SP TYPE: MISC TALIB DR: Dr. Salvador Diaz MD Tissues: Ampulla of Vater Procedures: Immunohistochemical Stains Surgery Specimen Level IV IHC Stain ADDITIONAL HEADER OPERATION: Endoscopic retrograde cholangiopancreatography with stent PRE-OP DIAGNOSIS: Choledocholithiasis, biliary stricture TISSUE SUBMITTED: Ampulla biopsy MICROSCOPIC DIAGNOSIS Duodenum, ampulla, biopsy: * Fragments of inflamed small intestinal mucosa with focal low dysplasia and reactive changes - see Comment. * Focal granulation tissue consistent with ulceration * IHC for CMV (cytomegalovirus) is negative (performed at [facility]) * IHC for p53 is wild-type. * IHC for Ki67 is not significantly increased COMMENT Please refer to additional specimen [id number]. Selected slides/images were reviewed in intradepartmental consultation ([facility]) by Dr Ivonne Hernandes (GI pathology division). MICROSCOPIC DESCRIPTION Slides are reviewed. These tests were developed and their performance characteristics determined by [facility]. They may not have been cleared or approved by the U.[place]. Food and Drug Administration. The FDA has determined that such clearance or approval is not necessary. The above immunohistochemical/dualISH markers are ordered and reviewed by the Pathologist. GROSS DESCRIPTION Received in formalin labeled Fran Lopez and designated ampulla biopsy, are multiple pitt, slightly ragged, irregular shaped, tissue fragments aggregating to 0.7 x 0.6 x 0.2 cm. Totally submitted in one cassette. 07/04/2024 CPT:00171, 69627,[id number]
--- NOTE | 2024-07-04 | FLU_PTH ---
PATIENT: FRAN PAREKH LOC: EN U#:[id number] AGE/SX: 78/M ROOM: RE07/04/[address]: Dr. Alex Sher DO : 1945 BED: DIS: 07/04/2024 SPEC #: [id number] RECD: 07/04/24 13:51 STATUS: PAPITO REChase #: [id number] KATE: 07/04/24 00:[address]: Alex Sher DEPT: CYTOLOGY RECD BY: Nadeem Bruce ENTERED: 07/04/24 13:51 SP TYPE: Fluid TALIB DR: Dr. Salvador Diaz MD Tissues: Biliary tract, NOS Procedures: Special Stain Group II Surgery Specimen Level IV Cytospin Fluid HEADER OPERATION: Endoscopic retrograde cholangiopancreatography with stent PRE-OP DIAGNOSIS: Choledocholithiasis, biliary stricture TISSUE SUBMITTED: Biliary stent for cytology DIAGNOSIS CYTOLOGY Biliary stent, cytology:Completely acellular specimen consisting of blood and bile.Lisa Blair M.D. 07/09/24 COMMENT Please refer to additional specimen [id number]. CYTOLOGY STUDY Slides are reviewed. CYTOLOGY GROSS Received is 12mm rodriguez stent labeled with the patient's name and and designated per the requisition as Biliary stent. Submitted for cytology preparation including cell block. Mr 07/04/2024 CPT: 76187,10163, TC:5
--- NOTE | 2024-07-04 09:21 | PCM.PRE.AN2 ---
ASA Classification* ASA Classification ASA Classification: 3 Assessment & Plan Anesthesia* Anesthesia Assessment Anesthesia Assessment: Discussed sedation and/or anesthesia options, risks, benefits, and alternatives with patient/parents/legal guardian/POA. Questions invited. The patient/parents/legal guardian/POA seems to understand and agrees to proceed with anesthesia plan. Reviewed the physical assessment, medical history, allergy history and patient home medications list prior to surgery/procedure/anesthetic and documented any changes. Performed airway and anesthesia risk assessments. Anesthesia Type Anesthesia Type: MAC History Source History Obtained from:: Patient and Chart Anesthesia Focused Assessment* Temperature: 97.4 F Pulse Rate: 57 Blood Pressure: 136/78 Respiratory Rate: 12 Pulse Ox: 97 Oxygen Delivery Method: Room Air Airway Assessment Mouth opens: >3 cm Mallampati Score: III Teeth Condition: Caps/Crowns (Patient has a couple caps. They are tight.) Neck Range of motion (ROM): Limited ROM Focused Labs Anesthesia Preop lab: CBC WBC 10.5 K/mm3 (4.4-11.0) 03/28/24 06:15 03/28/24 RBC 4.20 M/mm3 (4.6-6.2) L 03/28/24 06:15 03/28/24 Hgb 13.3 g/dL (13.0-16.5) 03/28/24 06:15 03/28/24 Hct 39.3 % (40-54) L 03/28/24 06:15 03/28/24 Plt Count 210 K/mm3 (150-450) 03/28/24 06:15 03/28/24 CHEMISTRY Potassium 4.1 mmol/L (3.5-5.1) 03/28/24 06:15 03/28/24 Sodium 138 mmol/L (136-145) 03/28/24 06:15 03/28/24 Magnesium 2.6 mg/dL (1.6-2.6) 03/27/24 06:35 03/27/24 BUN 24 mg/dL (7-18) H 03/28/24 06:15 03/28/24 Creatinine 1.47 mg/dL (0.70-1.30) H 03/28/24 06:15 03/28/24 Glucose 142 mg/dL (74-106) H 03/28/24 06:15 03/28/24 TSH 0.51 uIU/mL (0.358-3.74) 09/04/16 01:48 09/04/16 COAG PT 14.4 SECONDS (11.7-14.9) 03/26/24 02:15 03/26/24 Pre-Assessment Diagnosis/Proposed Procedure Planned Operative Procedure(s): ERCP Anesthesia History 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 07/02/24 14:53 Any Problems With Anesthesia No 07/02/24 14:53 Cholinesterase deficiency No 07/02/24 14:53 You/Your Family Experience No 07/02/24 14:53 fever (hyperthermia) with Relationship Recent Exposure to Contagious No 07/04/24 08:49 Disease Does patient have nerve No 07/02/24 14:53 stimulator Patient instructed to have device shut off --Does patient have Pacemaker No 07/04/24 08:49 or ICD? When Was Last Pacemaker Check QUESTION #4 FULL TEXT: You/Your Family Experience fever (hyperthermia) with Anesthesia Last Oral Intake Last Oral intake: Last Oral Intake NPO since 19:00 07/04/24 08:49 Meds taken in AM with sips of No 07/04/24 08:49 water? 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 - director of brand marketing: PONV - director of brand marketing Female No 07/02/24 14:53 HX of Motion Sickness No 07/02/24 14:53 HX of N/V After Surgery No 07/02/24 14:53 Non-Smoker Yes 07/02/24 14:53 Duration of Surgery greater No 07/02/24 14:53 than 60 minutes Number of Risk Factors 1 07/02/24 14:53 PONV Score Low Risk 07/02/24 14:53 Height & Weight Height & Weight: Anesthesia: Height & Weight Height 5 ft 10 in 07/04/24 08:49 Weight: 133 kg 07/04/24 08:49 Body Mass Index (BMI) 42.0 07/04/24 08:49 Respiratory Assessment Respiratory Assessment - director of brand marketing: Respiratory Tract Infection Hx - director of brand marketing Hx Respiratory Tract Infection No 07/02/24 14:53 STOP Sleep Apnea STOP Sleep Apnea - director of brand marketing: STOP Sleep Apnea - director of brand marketing Hx Hypertension Yes: CONTROLLED WITH MEDS 07/02/24 14:53 Hx Sleep Apnea Yes 07/02/24 14:53 CPAP Yes 07/02/24 14:53 BIPAP No 07/02/24 14:53 Do you snore loudly (louder than talking or can be heard Do you often feel tired/ fatigued/ sleepy during daytime? Has anyone observed you stop breathing during sleep? STOP Results Positive 07/02/24 14:53 QUESTION #5 FULL TEXT : Do you snore loudly (louder than talking or can be heard through closed doors)? 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 Specify any problems Hx of Preganancy in last 3 N/A 07/02/24 14:53 Months Nurse Filling Out Transfusion [email or web address] 07/02/24 14:53 & Questions: Date: 07/02/24 07/02/24 14:53 Time: 14:59 07/02/24 14:53 Patient unable to answer at this time (ie. confused, unrespo /Reproduction History /Reproductive History - director of brand marketing: /Reproductive Hx- director of brand marketing Hx Now Gestational Age (in weeks): EDC: Hx Hx Para Hx Section SAB PFSH Medical History (Updated 07/04/24 @ 09:[address] Abundio Merrill MD) Carpal tunnel syndrome on both sides Cancer Wears glasses Thyroid disease Shingles Inguinal hernia Cardiology follow-up encounter History of stress test Choledocholithiasis Current use of manager intermediate 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 Elevated liver enzymes Pancreatic mass High cholesterol Hx of gastroesophageal reflux (GERD) Hypothyroidism Hypertension Home Medications ?Medication ?Instructions ?Recorded ?Last Taken ?Type lisinopril 40 mg tablet 40 mg PO DAILY blood pressure 01/31/13 07/03/24 History atorvastatin 40 mg tablet 40 mg PO QHS cholesterol #90 09/05/16 07/03/24 Rx TABLETS gabapentin 300 mg capsule 300 mg PO QHS nerve pain 10/22/23 07/03/24 History metoprolol succinate 50 mg 50 mg PO DAILY blood pressure 10/22/23 07/03/24 History tablet,extended release 24 hr apixaban 5 mg tablet (Eliquis) 5 mg PO BID blood thinner 03/26/24 07/02/24 History hydrochlorothiazide 25 mg tablet 25 mg PO DAILY reduce fluid 03/26/24 07/03/24 History levothyroxine 125 mcg tablet 125 mcg PO DAILY disorder of 03/26/24 07/03/24 History thyroid gland Allergy/AdvReac Type Severity Reaction Status Date / Time azithromycin (From Zithromax) Allergy Itching Verified 07/04/24 08:42 bee venom protein (honey bee) AdvReac Swelling Verified 07/04/24 08:42 venom-wasp (wasps) AdvReac Swelling Verified 07/04/24 08:42 Surgical History (Updated 07/04/24 @ 09:[address] Abundio Merrill MD) History of total right hip arthroplasty S/P carpal tunnel release History of tonsillectomy History of ERCP Social History Smoking Status: Never smoker Review of Systems (Anesthesia) ROS Narrative System reviewed and no additional complaints, except as documented.
--- NOTE | 2024-07-04 09:57 | PCM.HP.STD ---
HPI - General General Date of Admission: 07/04/24 Date of Service: 07/04/24 Chief Complaint: Biliary stent removal HPI Narrative FRAN PAREKH, is a 78 M who presents for ERCP with stent removal. [facility] hospitalization 03.26.24 - 03.28.24 dizziness - consulted for pancreatitis abd/pelvis CT 03.26.24 Lobulated 6 cm pancreatic tail hypoattenuating, cystic appearing lesion previously measuring only up to 3 cm. Cystic neoplastic process is not excluded. Severe distal colonic diverticulosis without focus of diverticulitis. 3 cm exophytic anterior right interpolar renal lesion which does not measure simple fluid attenuation. Recommend nonemergent follow-up renal ultrasound to better characterize as solid neoplastic process is not 6excluded. Gall Bladder US 03.26.24 Fatty infiltration of the liver. MRCP 03.26.24 1. Normal gallbladder and biliary tree. 2. Multiple pancreatic cysts involving the tail of the pancreas. ERCP 03.27.24 The entire main bile duct and left main hepatic duct were dilated, with a stone causing an obstruction. Choledocholithiasis was found. Complete removal was accomplished by biliary sphincterotomy and balloon extraction. A pancreatic sphincterotomy was performed. The ventral pancreatic duct was swept and debris was found. A biliary sphincterotomy was performed. The biliary tree was swept. One temporary stent was placed into the common bile duct. OV 04.16.24 pt reports that he is feeling well overall and denies GI symptoms of concern at this time. Pt states that he has not had any symptoms since hospitalization. Would like to know when his stent will be removed. COUNT INCLUDES THE [facility] Medical History Carpal tunnel syndrome on both sides Cancer Wears glasses Thyroid disease Shingles Inguinal hernia Cardiology follow-up encounter History of stress test Choledocholithiasis Current use of retirement 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 Elevated liver enzymes Pancreatic mass High cholesterol Hx of gastroesophageal reflux (GERD) Hypothyroidism Hypertension Home Medications ?Medication ?Instructions ?Recorded ?Last Taken ?Type lisinopril 40 mg tablet 40 mg PO DAILY blood pressure 01/31/13 07/03/24 History atorvastatin 40 mg tablet 40 mg PO QHS cholesterol #90 09/05/16 07/03/24 Rx TABLETS gabapentin 300 mg capsule 300 mg PO QHS nerve pain 10/22/23 07/03/24 History metoprolol succinate 50 mg 50 mg PO DAILY blood pressure 10/22/23 07/03/24 History tablet,extended release 24 hr apixaban 5 mg tablet (Eliquis) 5 mg PO BID blood thinner 03/26/24 07/02/24 History hydrochlorothiazide 25 mg tablet 25 mg PO DAILY reduce fluid 03/26/24 07/03/24 History levothyroxine 125 mcg tablet 125 mcg PO DAILY disorder of 03/26/24 07/03/24 History thyroid gland Allergy/AdvReac Type Severity Reaction Status Date / Time azithromycin (From Zithromax) Allergy Itching Verified 07/04/24 08:42 bee venom protein (honey bee) AdvReac Swelling Verified 07/04/24 08:42 venom-wasp (wasps) AdvReac Swelling Verified 07/04/24 08:42 Surgical History History of total right hip arthroplasty S/P carpal tunnel release History of tonsillectomy History of ERCP Social History Smoking Status: Never smoker ROS Constitutional Constitutional: Denies fatigue, fever(s), poor appetite, weight gain or weight loss Gastrointestinal Gastrointestinal: Denies belching, bloating, change in bowel habits, change in stool character, chewing difficulty, coffee ground emesis, constipation, cramping, diarrhea, dyspepsia, dysphagia, early satiety, excessive flatus, fecal incontinence, heartburn, hematemesis, hematochezia, hemorrhoids, loose stools, melena, nausea, odynophagia, rectal bleeding, tenesmus, vomiting or weight changes Vital Signs Vital Signs Vital Signs: 07/04/24 08:49 07/04/24 08:49 07/04/24 09:43 Temperature 97.4 F L 97.4 F L Temperature Source Temporal Pulse Rate 57 L 57 L Respiratory Rate 12 12 Respiratory Pattern Normal Blood Pressure 136/78 H 136/78 H Blood Pressure Mean 97 Blood Pressure Source Monitor Blood Pressure Position Semi-Fowlers Blood Pressure Location Left Arm Pulse Ox 97 97 Oxygen Delivery Method Room Air Room Air Weight Weight: 293 lb 3.437 oz Body Mass Index (BMI) 42.0 Physical Exam Const alert, oriented x3, no apparent distress and healthy appearing General Appearance: cooperative GI normal to inspection, nondistended, normoactive bowel sounds, soft to palpation, non-tender and non-distended Percussion: normal to percussion Rectal Exam: deferred Assessment & Plan Assessment/Plan (1) Choledocholithiasis: (2) Biliary stricture: PLAN: 78-year-old gentleman who presented to the emergency room with abdominal pain, jaundice and discovered to have elevated LFTs and biochemical and radiologic evidence of 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 He was also discovered to have multiple pancreatic cysts with the largest one being in the pancreatic tail at 4.2 cm. Differential diagnosis for this would be pseudocyst from previous episodes of acute pancreatitis, less likely serous cystoadenoma, IPMN and less likely mucinous cystoadenoma. He underwent ERCP with stone removal and temporary stent placement for biliary stricture. He will have repeat ERCP with stent removal. He will need repeat MRCP or MRI of the abdomen in approximately 6 to 12 months to look at the multiple cyst in the pancreas.
--- NOTE | 2024-07-04 10:20 | RAD_ITS ---
PROCEDURE: ERCP BILIARY/PANCREAS REASON FOR EXAM: Pain. Recheck. TECHNIQUE: ERCP was performed by Dr. Alex Sher. Routine image documentation was performed during the procedure. COMPARISON: ERCP dated 03/27/2024. MRCP dated 03/27/2024. FINDINGS: An endoscope is visualized projecting over the right hemiabdomen. Contrast opacifies the common bile duct and segments of the common hepatic and intrahepatic bile ducts. No intraluminal filling defects are noted. No strictures or obstructing lesions. Some contrast opacifies the cystic duct. Contrast is seen in the duodenum. No contrast was noted in the pancreatic duct. RAD/ERCP Biliary/Pancreas IMPRESSION: Unremarkable endoscopic retrograde cholangiopancreatography. Reading Location: [place] [id number]
--- NOTE | 2024-07-04 10:59 | PCM.POST.ANE ---
Anesthesia: Postop Eval I Current Vital Signs Temperature: 97.9 F Pulse Rate: 72 Blood Pressure: 140/84 Respiratory Rate: 16 Pulse Ox: 95 Oxygen Delivery Method: Room Air Assessment Airway patent: Yes Spontaneous unlabored respirations: Yes Mental status: Awake and Calm nausea: No Vomiting: No Anesthesia Complication: No Fluid Hydration Crystalloid volume administer (ml): 60 Total IV fluid infused: 60 Progress Note Anesthesia document: Postop Eval 1 completed: Yes
--- NOTE | 2024-07-04 11:06 | OP.CCLET_ITS ---
07/04/2024 Salvador Diaz Re : ERCP procedure for Moi Lopez Anahi Diza This procedure was performed on June. My impressions and recommendations are as follows: Impressions : - Mucosal changes in the duodenum. - Biopsies were taken with a cold forceps for histology in the ampulla. - Choledocholithiasis was found. Complete removal was accomplished by biliary sphincterotomy and balloon extraction. - A biliary sphincterotomy was performed. - The biliary tree was swept. - One stent was removed from the biliary tree. Recommendations : My findings are described in the full procedure note, which is enclosed. If I can be of further assistance, please feel free to contact me at . Sincerely, Alex Sher, 07/04/2024 11:05:54 AM This report has been signed electronically.
--- NOTE | 2024-07-04 11:06 | OP.ERCP_ITS ---
Patient Name: Moi Lopez Procedure Date: 07/04/2024 10:18 AM Date of : 1945 Age: 78 Procedure: ERCP Indications: Biliary stent removal Providers: Alex Sher DO Medicines: Monitored Anesthesia Care Patient Profile: This is a 78 year old male. Refer to note in patient chart for documentation of history and physical. Patient has symptoms of acute right upper quadrant abdominal pain. Complications: No immediate complications. Procedure: Pre-Anesthesia Assessment: - Prior to the procedure, a History and Physical was performed, and patient medications and allergies were reviewed. The patient is competent. The risks and benefits of the procedure and the sedation options and risks were discussed with the patient. All questions were answered and informed consent was obtained. Patient identification and proposed procedure were verified by the physician in the pre-procedure area. Mental Status Examination: alert and oriented. Airway Examination: normal oropharyngeal airway and neck mobility. Respiratory Examination: clear to auscultation. CV Examination: normal. ASA Grade Assessment: II - A patient with mild systemic disease. After reviewing the risks and benefits, the patient was deemed in satisfactory condition to undergo the procedure. The anesthesia plan was to use monitored anesthesia care (MAC). Immediately prior to administration of medications, the patient was re-assessed for adequacy to receive sedatives. The heart rate, respiratory rate, oxygen saturations, blood pressure, adequacy of pulmonary ventilation, and response to care were monitored throughout the procedure. The physical status of the patient was re-assessed after the procedure. After obtaining informed consent, the scope was passed under direct vision. Throughout the procedure, the patient's blood pressure, pulse, and oxygen saturations were monitored continuously. The Duodenoscope was introduced through the mouth, and advanced to the duodenum and used to inject contrast into the bile duct. The ERCP was accomplished without difficulty. The patient tolerated the procedure well. Scope In: 10:32:14 AM Scope Out: 10:46:51 AM Total Procedure Duration Time 0 hours 14 minutes 37 seconds Findings: A biliary stent was visible on the slate mixer film. The esophagus was successfully intubated under direct vision. The scope was advanced to a normal major papilla in the descending duodenum without detailed examination of the pharynx, larynx and associated structures, and upper GI tract. The upper GI tract was grossly normal. A long 0.025 inch Jagwire was passed into the biliary tree. The short-nosed traction sphincterotome was passed over the guidewire and the bile duct was then deeply cannulated. Contrast was injected. I personally interpreted the bile duct images. Ductal flow of contrast was adequate. Image quality was adequate. Contrast extended to the biliary pancreatic junction. Contrast extended to the main bile duct. Contrast extended to the cystic duct. Contrast extended to the gallbladder. Contrast extended to the bifurcation. Contrast extended to the hepatic ducts. Contrast extended to the entire biliary tree. A 5 mm biliary sphincterotomy was made with a braided traction (standard) sphincterotome using ERBE electrocautery. There was no post-sphincterotomy bleeding. The biliary tree was swept with a 12 mm balloon starting at the upper third of the main bile duct, middle third of the main bile duct, lower third of the main duct, bifurcation, left intrahepatic duct(s), left main hepatic duct, right intrahepatic duct(s) and right main hepatic duct. All stones were removed. One stent was removed from the biliary tree using a snare and sent for cytology. The stent was found to be partially occluded via the water column test. A standard esophagogastroduodenoscopy scope was used for the examination of the upper gastrointestinal tract. The scope was passed under direct vision through the upper GI tract. Localized mild mucosal changes characterized by granularity were found in the area of the papilla. Biopsies were taken in the ampulla through the esophagogastroduodenoscope with the cold forceps for histology. Impression: - Mucosal changes in the duodenum. - Biopsies were taken with a cold forceps for histology in the ampulla. - Choledocholithiasis was found. Complete removal was accomplished by biliary sphincterotomy and balloon extraction. - A biliary sphincterotomy was performed. - The biliary tree was swept. - One stent was removed from the biliary tree. Procedure Code(s): --- Professional --- 42192, Endoscopic retrograde cholangiopancreatography (ERCP); with removal of foreign body(s) or stent(s) from biliary/pancreatic duct(s) 95020, Endoscopic retrograde cholangiopancreatography (ERCP); with removal of calculi/debris from biliary/pancreatic duct(s) 85969, Endoscopic retrograde cholangiopancreatography (ERCP); with sphincterotomy/papillotomy 83591, Esophagogastroduodenoscopy, flexible, transoral; with biopsy, single or multiple 79772, 26, Endoscopic catheterization of the biliary ductal system, radiological supervision and interpretation CPT copyright 2021 [employer]. All rights reserved. The codes documented in this report are preliminary and upon pot room tapper review may be revised to meet current compliance requirements. Alex Sher DO 07/04/2024 11:05:54 AM This report has been signed electronically. Number of Addenda: 0 Note Initiated On: 07/04/2024 10:18 AM
--- NOTE | 2024-07-04 12:52 | PCM.POSTANE2 ---
Anesthesia Postop Eval I Sum Postop Eval Completion status Anesthesia document: Postop Eval 1 completed: Yes Anesthesia Postop Eval I Summary Anesthesia Postop Eval I Summary: Anesthesia Postop Eval I: Assessment Summary Airway patent Yes 07/04/24 11:00 [email or web address] Spontaneous unlabored Yes 07/04/24 11:00 [email or web address] respirations Mental status Awake,Calm 07/04/24 11:00 [email or web address] nausea No 07/04/24 11:00 [email or web address] Vomiting No 07/04/24 11:00 [email or web address] Anesthesia Postop Eval I: Fluid Summary Crystalloid volume administer 60 07/04/24 11:00 [email or web address] (ml) Colloids volume administered ( ml) Blood Product volume administered (ml) Total IV fluid infused 60 07/04/24 11:00 [email or web address] Anesthesia Postop Eval I: Summary Notes Anesthesia Complication No 07/04/24 11:00 [email or web address] Anesthesia Complication Comment: Post-operative progress note Anesthesia: Postop Eval II Evaluation Mental status: Awake and Calm Pain Level: 0 nausea: No Vomiting: No Complications Anesthesia Complication: No
== END 2024-07-04 11:52 | disposition home or self-care (01) ==
LOC: EN 08:26 → AC 08:26
PROVIDERS: PCP Family Medicine; Referring Provider Family Medicine; Visit Provider Internal Medicine Gastroenterology
PROC: (CPT 43260; principal; 2024-07-04 09:10)
DX: Z46.59 Encounter for fitting and adjustment of other gastrointestinal appliance and device (principal); I10 Essential (primary) hypertension; E78.00 Pure hypercholesterolemia, unspecified; Z79.899 Other long term (current) drug therapy; E03.9 Hypothyroidism, unspecified; Z79.890 Hormone replacement therapy; Z79.01 Long term (current) use of anticoagulants; K31.89 Other diseases of stomach and duodenum; K52.9 Noninfective gastroenteritis and colitis, unspecified
CPT/HCPCS: 43262; 43264; 43239; 43275; 74330; 76000; 88108; 88305; 88313; 88341; 88342; 93005; A4216; J2405

== ENCOUNTER 2024-08-31 11:20 | Emergency (ER) | payer MEDICARE, OTHER, SELFPAY ==
[2024-08-31 11:23] VITALS: BP 170/82; PULSE 67; RESP 16; TEMP 36.5; O2SAT 96
[2024-08-31 11:25] VITALS: BMI 43.0
--- NOTE | 2024-08-31 11:40 | CT_ITS ---
PROCEDURE: ABDOMEN/PELVIS W IV CONT ONLY 08/31/2024 REASON FOR EXAM: Worsening mid abdominal pain. History of pancreatic mass and inguinal hernia. TECHNIQUE: Abdomen and pelvis CT with intravenous contrast. Coronal and Sagittal reconstruction series were provided. PATIENT PREPARATION: Per protocol ORAL CONTRAST TYPE: None. CONTRAST: Isovue 370 VOLUME: 100 mL One or more dose reduction techniques were used (e.g., Automated exposure control, adjustment of the mA and/or kV according to patient size, use of iterative reconstruction technique. RADIATION DOSE SUMMARY: CTDlvol: 50 mGy DLP: 1300 mGycm COMPARISON: ERCP 07/04/2024. CT abdomen pelvis 03/26/2024. FINDINGS: Lung bases: Bibasilar atelectasis. The heart is normal in size with coronary artery calcifications. Small, partially calcified lesion along the right anterior mediastinum adjacent to the left ventricle (series 2, image 9), partially visualized on prior imaging. Liver: Normal in size with diffuse hepatic steatosis. The main portal veins are patent. No biliary ductal dilation. Gallbladder: No radiopaque stones within the gallbladder. Mild gallbladder wall thickening and pericholecystic fluid. Spleen: Normal size. Pancreas: Cystic lesions within the pancreatic tail without calcification or obvious communication with the main pancreatic duct. Adrenals: No adrenal mass. Kidneys: Small bilateral renal cysts and additional hypodensities. No hydronephrosis or nephrolithiasis. Bladder: The urinary bladder is distended and unremarkable. Reproductive Organs: Visualization of the pelvis is limited by adjacent streak artifact. The prostate is grossly unremarkable. Bowel: Small hiatal hernia. The bowel loops are normal caliber. No ascites or pneumoperitoneum. Normal appendix. Lymph nodes: No suspicious lymphadenopathy. Vasculature: Mild calcific plaque of the aortoiliac vessels. Bones: Thoracolumbar spondylosis with severe degenerative disc disease and vacuum effect. Chronic appearing mild T11 vertebral body height loss. Prior right total hip arthroplasty. CT/Abdomen/Pelvis W IV Cont ONLY IMPRESSION: 1. No acute abdominopelvic finding. 2. Trace gallbladder wall thickening and pericholecystic fluid without radiopaq ue stones. Findings are nonspecific. Correlation with patient's symptoms and laboratory values recommended. 3. Diffuse hepatic steatosis. 4. Stable small partially calcified lesion within the anterior mediastinum, whi ch is indeterminate in etiology but likely represents a benign finding. Reading Location: [id number]
--- NOTE | 2024-08-31 11:40 | EDS_ITS ---
HPI HPI - GI History of Present Illness Chief Complaint: Abd Pain Narrative Narrative: 78-year-old male past medical history of of biliary stricture, presents with abdominal pain that has had for the last few days. He relates history that he sees pain management, Dr. Eduardo, and recently started hydrocodone tablets for chronic pain. This is the first time he is taking it. Over the last 4 days he has had abdominal pain but denies any fevers or chills, no nausea or vomiting. He had a small bowel movement within the last 2 days. He denies any abdominal bloating and cannot really say what type of pain he is having but feels that it is getting worse. Its located diffusely but mainly above the umbilicus. No other prior abdominal surgeries except for biliary stent inserted and removed by gastric allergy. [facility] Medical History Carpal tunnel syndrome on both sides Cancer Wears glasses Thyroid disease Shingles Inguinal hernia Cardiology follow-up encounter History of stress test Choledocholithiasis Current use of nursing home 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 Elevated liver enzymes Pancreatic mass High cholesterol Hx of gastroesophageal reflux (GERD) Hypothyroidism Hypertension Home Medications ?Medication ?Instructions ?Recorded ?Last Taken ?Type lisinopril 40 mg tablet 40 mg PO DAILY blood pressur e 01/31/13 08/31/24 History atorvastatin 40 mg tablet 40 mg PO QHS cholesterol #90 09/05/16 08/30/24 Rx TABLETS gabapentin 300 mg capsule 300 mg PO QHS nerve pain 08/30/24 History metoprolol succinate 50 mg 50 mg PO DAILY blood pressu re 10/22/23 08/31/24 History tablet,extended release 24 hr apixaban 5 mg tablet (Eliquis) 5 mg PO BID blood thinn er 03/26/24 08/31/24 History hydrochlorothiazide 25 mg tablet 25 mg PO DAILY reduce fluid 03/26/24 08/31/24 History levothyroxine 125 mcg tablet 125 mcg PO DAILY disorder of 03/26/24 08/31/24 History thyroid gland aspirin 81 mg tablet,delayed 81 mg PO DAILY 08/31/24 0 08/31/24 History release (Adult Aspirin Regimen) hydrocodone-acetaminophen 5-325mg 0.5 - 1 tab PO TID P RN pain 08/31/24 Unknown History 5mg-325mg multivitamin (Daily Multi-Vitamin 1 tab PO DAILY 08/3108/31/24 History tablet) Allergy/AdvReac Type Severity Reaction Status Date / Time azithromycin (From Zithromax) Allergy Itching Verified 08/31/24 11:25 bee venom protein (honey bee) AdvReac Swelling Verified 08/31/24 11:25 venom-wasp (wasps) AdvReac Swelling Verified 08/31/24 11:25 Surgical History History of total right hip arthroplasty S/P carpal tunnel release History of tonsillectomy History of ERCP Social History Smoking Status: Never smoker ROS ROS ED ROS Narrative Review of systems positive for nondescript abdominal pain diffusely but concentrated in the center. No fevers or chills, no nausea or vomiting. No dysuria or hematuria. Last bowel movement small amount 1 to 2 days ago. Recently started hydrocodone for chronic pain. EXAM Physical Exam Narrative Exam Narrative: Afebrile. Vital signs noted. Nontoxic-appearing. Cardiovascular examination reveals a regular rate and rhythm. Lungs are clear to auscultation bilaterally. The abdomen is soft, with minimal diffuse tenderness to palpation, no guarding or rebound. Decreased bowel sounds. Neurological examination nonfocal nonlateralizing. Const Vital Signs: 08/31/24 11:23 Temperature 97.7 F L Temperature Source Oral Pulse Rate 67 Respiratory Rate 16 Blood Pressure 170/82 H Blood Pressure Mean 111 Pulse Ox 96 Oxygen Delivery Method Room Air MDM MDM MDM Narrative Medical decision making narrative: Differential diagnosis includes but not limited to bowel obstruction versus constipation versus nonspecific abdominal pain. I have low suspicion for diverticulitis because the history and physical does not support this. CBC and electrolyte panel will be obtained as well as CT imaging and urinalysis. I reviewed his laboratory work and he has slight leukocytosis of 12.6 which I think is nonspecific with hemoglobin 15.9, hematocrit 46.1, platelet count 225. Electrolyte panel shows BUN of 21 with creatinine 1.46. When compared to prior labs he has chronic kidney disease. LFTs are grossly unremarkable. Urinalysis is negative for infection, negative for ketones. I do not feel antibiotics are indicated. Additionally I reviewed the radiology report of the CT of the abdomen and pelvis which shows no acute intra-abdominal process. He does have trace gallbladder wall thickening and pericholecystic fluid without stones. This is nonspecific according to the radiologist. In correlation with his LFTs, I do not think that he has an acute cholecystitis, and he is not having pain in that area. Additionally he has history of requiring the biliary stent/stricture. Patient states he was nauseated and vomited over the CT scanner, but now feels improved. I do feel that his symptoms are more related to his new opiate use. He will contact his pain management doctor about a different type of medication. He was told to start [id number] medications and stool softeners for his constipation. Return instructions to the emergency department were reviewed. Disposition is discharged home in stable condition. History & Record Review Discussion w/independent historian: Patient Lab Data Attestation: I reviewed the patient's lab results. Labs: Laboratory Results - last 24 hr 08/31/24 08/31/24 11:42 13:03 WBC 12.6 H RBC 4.96 Hgb 15.9 Hct 46.1 MCV 92.9 MCH 32.1 H MCHC 34.5 RDW Std Deviation 45.3 H RDW Coeff of Gisella 13.3 Plt Count 225 MPV 9.5 Immature Gran % (Auto) 0.400 Neut % (Auto) 73.3 H Lymph % (Auto) 17.0 L Stephenson % (Auto) 7.5 Eos % (Auto) 1.3 Baso % (Auto) 0.5 Absolute Neuts (auto) 9.2 H Absolute Lymphs (auto) 2.13 Nucleated RBC % 0 Sodium 139 Potassium 5.0 Chloride 104 Carbon Dioxide 23.3 Anion Gap 12 BUN 21 H Creatinine 1.46 H Estim Creat Clear Calc 57.03 Est GFR (MDRD) Non-Af 49 L BUN/Creatinine Ratio 14.0 Glucose 135 H Calcium 9.5 Total Bilirubin 0.80 AST 31 ALT 20 Alkaline Phosphatase 86 Total Protein 7.2 Albumin 4.0 Globulin 3.2 Albumin/Globulin Ratio 1.3 Urine Color Yellow Urine Clarity Clear Urine pH 6.5 Ur Specific [place] 1.010 Urine Protein 30 H Urine Glucose (UA) Normal Urine Ketones Negative Urine Occult Blood Negative Urine Nitrite Negative Urine Bilirubin Negative Urine Urobilinogen Normal Ur Leukocyte Esterase Negative Urine RBC 0-5 SEEN Urine WBC 0-5 SEEN Ur Squamous Epith Cells 0 SEEN Urine Bacteria 0 SEEN Urine Mucus 0 SEEN Radiography Diagnostic Testing: Clinical Impression(s) from Imaging Studies Abdomen/Pelvis CT 08/31/24 11:40 IMPRESSION: 1. No acute abdominopelvic finding. 2. Trace gallbladder wall thickening and pericholecystic fluid without radiopaque stones. Findings are nonspecific. Correlation with patient's symptoms and laboratory values recommended. 3. Diffuse hepatic steatosis. 4. Stable small partially calcified lesion within the anterior mediastinum, which is indeterminate in etiology but likely represents a benign finding. Reading Location: [facility] Discharge Plan Triage Chief Complaint: Abd Pain ED Provider: Isaias Trivedi Dx/Rx/DC Orders Clinical Impression: Abdominal pain, Nausea and vomiting, Medication side effects Instructions: ED Abdominal Pain Unkn Cause Male... Prescriptions: No Action lisinopril 40 MG tablet 40 mg PO DAILY Patient Comments: BLOOD PRESSURE atorvastatin 40 MG tablet 40 mg PO QHS Qty: 90 0RF Eliquis 5 mg tablet 5 mg PO BID levothyroxine 125 mcg tablet 125 mcg PO DAILY hydrochlorothiazide 25 mg tablet 25 mg PO DAILY hydrocodone-acetaminophen 5-325 mg tablet 0.5 - 1 tab PO TID PRN (Reason: pain) Patient Comments: PT STOPPED TAKING, SIDE EFFECTS. multivitamin [Daily Multi-Vitamin] Tablet 1 tab PO DAILY aspirin [Adult Aspirin Regimen] 81 mg tablet,delayed release (DR/EC) 81 mg PO DAILY gabapentin 300 mg capsule 300 mg PO QHS metoprolol succinate 50 mg tablet extended release 24 hr 50 mg PO DAILY Primary Care Provider: Salvador Diaz Referrals: Salvador Diaz MD [Primary Care Provider] - 3-5 Days if not improving Bob Cabezas MD [Med Staff - Active Staff] - 2 Days Activity Restrictions/Additional Instructions: Start an [id number] stool softener. You may be having more side effects from the opiate pain medication. Return to the emergency department with fever, increased pain, new or worsening symptoms. You may need to follow-up with your pain management doctor regarding a different type medication for your chronic pain. Print Language: [place] Disposition Disposition: Home, Self Care
[2024-08-31] MEDS: 0.9% Normal Saline (1000mL) 1,000 ML 999 ML IV (11:45)
[2024-08-31 11:51] LABS: Absolute Lymphocyte Count 2.13 X10^3/uL (0.83-4.51); Absolute Neutrophil Count 9.2 X10^3/uL (2.0-7.7); Basophil# 0.06 X10^3/uL; Basophil% 0.5 % (0-1); Eosinophil# 0.16 X10^3/uL; Eosinophils% 1.3 % (0-5); Hematocrit 46.1 % (40-54); Hemoglobin 15.9 g/dL (13.0-16.5); Lymphocyte # 2.13 X10^3/ul (0.83-4.51); Mean Corp Hgb Conc 34.5 g/dL (32-36); Mean Corpuscular Hgb 32.1 pg (27.0-32.0); Mean Corpuscular Volume 92.9 fL (80-94); Mean Platelet Vol. 9.5 fl (6.2-12.0); Monocyte# 0.94 X10^3/uL; Monocyte% 7.5 % (0-10); NRBC Flagged by Analyzer 0 % (0-5); Neutrophil # 9.22 X10^3/uL (2.7-7.7); Neutrophil % 73.3 % (47-70); Platelet Count 225 K/mm3 (150-450); RBC Distribution Width CV 13.3 % (11.6-14.6); RBC Distribution Width SD 45.3 fl (35.1-43.9); Red Blood Count 4.96 M/mm3 (4.6-6.2); White Blood Count 12.6 K/mm3 (4.4-11.0)
[2024-08-31 12:18] LABS: ALB/GLOB Ratio 1.3 RATIO (0.9-2.4); AST(SGOT) 31 U/L (<=37); Alanine Aminotransfer ALT/SGPT 20 U/L (<=46); Alkaline Phosphatase 86 U/L (40-129); Anion Gap 12 (5-15); BUN 21 mg/dL (4-19); Calcium,Total 9.5 mg/dL (7.6-11.0); Carbon Dioxide 23.3 mmol/L (21.0-32.0); Chloride 104 mmol/L (98-108); Creatinine, Serum 1.46 mg/dL (0.70-1.20); EST Glomerular Filtration Rate 49 (>60); Estimated Creatinine Clearance 57.03 ml/min (50-250); Globulin 3.2 g/dL (2.2-4.2); Glucose 135 mg/dL (70-99); Protein, Total 7.2 g/dL (5.9-8.4); Sodium Level 139 mmol/L (133-145)
[2024-08-31 13:07] LABS: Bacteria 0 SEEN /hpf (None Seen); Mucous, Urine 0 SEEN /hpf (<or=2+); Squamous Epithelial Cells - UA 0 SEEN /hpf (0-5)
[2024-08-31 13:08] LABS: Color, Urine Yellow (Yellow); Glucose, Dipstick Normal (Normal); Ketone-Dipstick Negative (Negative); Leukocyte Esterase-Dipstick Negative /ul (Negative); Nitrite-Dipstick Negative (Negative); Occult Blood-Urine Negative /ul (Negative); Protein-Dipstick 30 mg/dl (Negative); Urine Bilirubin Dipstick Negative (Negative); Urine Clarity Clear (Clear); Urine Urobilinogen Normal (Normal); Urine pH 6.5 (5.0 - 8.0)
[2024-08-31 13:16] LABS: Red Blood Cells-Urine 0-5 SEEN /hpf (0-5); White Blood Cells 0-5 SEEN /hpf (0-5)
[2024-08-31 13:47] VITALS: BP 134/78; PULSE 78; RESP 16; O2SAT 98
== END 2024-08-31 13:51 | disposition home or self-care (01) ==
PROVIDERS: Emergency Provider Emergency Medicine; PCP Family Medicine; Visit Provider Emergency Medicine
DX: R10.84 Generalized abdominal pain (principal); R11.2 Nausea with vomiting, unspecified; T40.2X5A Adverse effect of other opioids, initial encounter; I12.9 Hypertensive chronic kidney disease with stage 1 through stage 4 chronic kidney disease, or unspecified chronic kidney disease; N18.9 Chronic kidney disease, unspecified; K21.9 Gastro-esophageal reflux disease without esophagitis; E03.9 Hypothyroidism, unspecified; E78.00 Pure hypercholesterolemia, unspecified; G89.29 Other chronic pain; Z87.19 Personal history of other diseases of the digestive system; Z79.82 Long term (current) use of aspirin; Z79.890 Hormone replacement therapy; Z79.899 Other long term (current) drug therapy
CPT/HCPCS: 74177; 80053; 81001; 85025; 96360; 99282; Q9967; A4216

== ENCOUNTER 2024-10-07 10:24 | Day surgery (SDC) | payer MEDICARE, OTHER, SELFPAY ==
[2024-10-07] VITALS (10 sets, daily range): BP systolic 121–158; BP diastolic 70–95; PULSE 48–67; RESP 16–18; TEMP 36.4–36.7; O2SAT 95–98; BMI 41.5
--- NOTE | 2024-10-07 10:49 | PCM.PRE.AN2 ---
ASA Classification* ASA Classification ASA Classification: 2 Assessment & Plan Anesthesia* Anesthesia Assessment Anesthesia Assessment: Discussed sedation and/or anesthesia options, risks, benefits, and alternatives with patient/parents/legal guardian/POA. Questions invited. The patient/parents/legal guardian/POA seems to understand and agrees to proceed with anesthesia plan. Reviewed the physical assessment, medical history, allergy history and patient home medications list prior to surgery/procedure/anesthetic and documented any changes. Performed airway and anesthesia risk assessments. Anesthesia Type Anesthesia Type: MAC ( General anesthesia backup.) Anesthesia Focused Assessment* Airway Assessment Mouth opens: >3 cm Mallampati Score: II Labs Anesthesia Preop lab: CBC WBC 12.6 K/mm3 (4.4-11.0) H 08/31/24 11:42 08/31/24 RBC 4.96 M/mm3 (4.6-6.2) 08/31/24 11:08/31/24 Hgb 15.9 g/dL (13.0-16.5) 08/31/24 11:42 08/31/24 Hct 46.1 % (40-54) 08/31/24 11:42 08/31/24 Plt Count 225 K/mm3 (150-450) 08/31/24 11:42 08/31/24 CHEMISTRY Potassium 5.0 mmol/L (3.3-5.1) 08/31/24 11:42 08/31/24 Sodium 139 mmol/L (133-145) 08/31/24 11:42 08/31/24 Magnesium 2.6 mg/dL (1.6-2.6) 03/27/24 06:35 03/27/24 BUN 21 mg/dL (4-19) H 08/31/24 11:42 08/31/24 Creatinine 1.46 mg/dL (0.70-1.20) H 08/31/24 11:42 08/31/24 Glucose 135 mg/dL (70-99) H 08/31/24 11:42 08/31/24 TSH 0.51 uIU/mL (0.358-3.74) 09/04/16 01:48 09/04/16 COAG PT 14.4 SECONDS (11.7-14.9) 03/26/24 02:15 03/26/24 Pre-Assessment Diagnosis/Proposed Procedure Planned Operative Procedure(s): ERCP stent placement. Anesthesia History Anesthesia History - paper tube grader: Anesthesia History - paper tube grader Hx Hospitalization Yes: [facility]- ERCP 03/24. 10/03/24 10:22 Any Problems With Anesthesia No 10/03/24 10:22 Cholinesterase deficiency No 10/03/24 10:22 You/Your Family Experience No 10/03/24 10:22 fever (hyperthermia) with Relationship Recent Exposure to Contagious No 07/04/24 08:49 Disease Does patient have nerve No 10/03/24 10:22 stimulator Patient instructed to have device shut off --Does patient have Pacemaker or ICD? When Was Last Pacemaker Check QUESTION #4 FULL TEXT: You/Your Family Experience fever (hyperthermia) with Anesthesia Last Oral Intake Last Oral intake: Last Oral Intake NPO since Meds taken in AM with sips of water? 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 - paper tube grader: PONV - paper tube grader Female No 10/03/24 10:22 HX of Motion Sickness No 10/03/24 10:22 HX of N/V After Surgery No 10/03/24 10:22 Non-Smoker Yes 10/03/24 10:22 Duration of Surgery greater No 10/03/24 10:22 than 60 minutes Number of Risk Factors 1 10/03/24 10:22 PONV Score Low Risk 10/03/24 10:22 Height & Weight Height & Weight: Anesthesia: Height & Weight Height 5 ft 10 in 09/17/24 09:36 Respiratory Assessment Respiratory Assessment - paper tube grader: Respiratory Tract Infection Hx - paper tube grader Hx Respiratory Tract Infection No 10/03/24 10:22 STOP Sleep Apnea STOP Sleep Apnea - paper tube grader: STOP Sleep Apnea - paper tube grader Hx Hypertension Yes: CONTROLLED WITH MEDS 10/03/24 10:22 Hx Sleep Apnea Yes 10/03/24 10:22 CPAP Yes 10/03/24 10:22 BIPAP No 10/03/24 10:22 Do you snore loudly (louder than talking or can be heard Do you often feel tired/ fatigued/ sleepy during daytime? Has anyone observed you stop breathing during sleep? STOP Results Positive 10/03/24 10:22 QUESTION #5 FULL TEXT : Do you snore loudly (louder than talking or can be heard through closed doors)? 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 Use History - paper tube grader: Tobacco Use History - paper tube grader Tobacco Use Smoking Status Never smoker 10/03/24 10:22 Hx Tobacco Use No 10/03/24 10:22 Years Smoking Packs Smoked per Day Smoking Cessation Date was within the last 15 years Hx Smoking Cessation Date Hx Smoking Cessation Counseling Hematologic Medial History Hematologic Hx - paper tube grader: Hematologic Medical Hx - wire threader Hx of Blood Transfusion No 10/03/24 10:22 Hx of Transfusion in last 3 No 10/03/24 10:22 Months Date of Last Transfusion (if within last 3 months) Ever experience any problems No 10/03/24 10:22 with transfusion(s)? Specify any problems Hx of Preganancy in last 3 N/A 10/03/24 10:22 Months Nurse Filling Out Transfusion NBUCHER 10/03/24 10:22 & Questions: Date: 10/03/24 10/03/24 10:22 Time: 10:23 10/03/24 10:22 Patient unable to answer at this time (ie. 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 Elevated liver enzymes Pancreatic mass High cholesterol Hx of gastroesophageal reflux (GERD) Hypothyroidism Hypertension Home Medications ?Medication ?Instructions ?Recorded ?Last Taken ?Type lisinopril 40 mg tablet 40 mg PO DAILY blood pressure 01/31/13 08/31/24 History atorvastatin 40 mg tablet 40 mg PO QHS cholesterol #90 09/05/16 08/30/24 Rx TABLETS gabapentin 300 mg capsule 300 mg PO QHS nerve pain 10/22/23 08/30/24 History metoprolol succinate 50 mg 50 mg PO DAILY blood pressure 10/22/23 08/31/24 History tablet,extended release 24 hr apixaban 5 mg tablet (Eliquis) 5 mg PO BID blood thinner 03/26/24 08/31/24 History hydrochlorothiazide 25 mg tablet 25 mg PO DAILY reduce fluid 03/26/24 08/31/24 History levothyroxine 125 mcg tablet 125 mcg PO DAILY disorder of 03/26/24 08/31/24 History thyroid gland aspirin 81 mg tablet,delayed 81 mg PO DAILY 08/31/24 08/31/24 History release (Adult Aspirin Regimen) multivitamin (Daily Multi-Vitamin 1 tab PO DAILY 08/31/24 08/31/24 History tablet) Allergy/AdvReac Type Severity Reaction Status Date / Time azithromycin (From Zithromax) Allergy Itching Verified 10/03/24 10:19 bee venom protein (honey bee) AdvReac Swelling Verified 10/03/24 10:19 venom-wasp (wasps) AdvReac Swelling Verified 10/03/24 10:19 Surgical History History of total right hip arthroplasty S/P carpal tunnel release History of tonsillectomy History of ERCP Social History Smoking Status: Never smoker Review of Systems (Anesthesia) ROS Narrative System reviewed and no additional complaints, except as documented.
[2024-10-07] MEDS: Lactated Ringers 1,000 ML 15 ML IV (11:07)
--- NOTE | 2024-10-07 11:30 | HP.PCM_ITS ---
HPI - General General Date of Admission: 10/07/24 Date of Service: 10/07/24 Chief Complaint: Ampulla with low-grade dysplasia HPI Narrative FRAN PAREKH, is a 79 M who presents for repeat ERCP with ampullectomy. [facility] hospitalization 03.26.24 - 03.28.24 dizziness - consulted for pancreatitis abd/pelvis CT 03.26.24 Lobulated 6 cm pancreatic tail hypoattenuating, cystic appearing lesion previously measuring only up to 3 cm. Cystic neoplastic process is not excluded. Severe distal colonic diverticulosis without focus of diverticulitis. 3 cm exophytic anterior right interpolar renal lesion which does not measure simple fluid attenuation. Recommend nonemergent follow-up renal ultrasound to better characterize as solid neoplastic process is not 6excluded. Gall Bladder US 03.26.24 Fatty infiltration of the liver. MRCP 03.26.24 1. Normal gallbladder and biliary tree. 2. Multiple pancreatic cysts involving the tail of the pancreas. ERCP 03.27.24 The entire main bile duct and left main hepatic duct were dilated, with a stone causing an obstruction. Choledocholithiasis was found. Complete removal was accomplished by biliary sphincterotomy and balloon extraction. A pancreatic sphincterotomy was performed. The ventral pancreatic duct was swept and debris was found. A biliary sphincterotomy was performed. The biliary tree was swept. One temporary stent was placed into the common bile duct. OV 12.17.24 pt reports that he is feeling well overall and denies GI symptoms of concern at this time. Pt states that he has not had any symptoms since hospitalization. Would like to know when his stent will be removed. ERCP ..25 Mucosal changes in the duodenum. Biopsies were taken with a cold forceps for histology in the ampulla. Choledocholithiasis was found. Complete removal was accomplished by biliary sphincterotomy and balloon extraction. A biliary sphincterotomy was performed. The biliary tree was swept. One stent was removed from the biliary tree. OV 3.25.25 pt reports that he is feeling well overall and denies GI symptoms of concern at this time. Reports continued sciatica pain and reports that in 2 weeks he is having ablation done with Dr Cabezas. 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 Elevated liver enzymes Pancreatic mass High cholesterol Hx of gastroesophageal reflux (GERD) Hypothyroidism Hypertension Home Medications ?Medication ?Instructions ?Recorded ?Last Taken ?Type lisinopril 40 mg tablet 40 mg PO DAILY blood pressur e 01/31/13 10/06/24 History atorvastatin 40 mg tablet 40 mg PO QHS cholesterol #90 09/05/16 10/06/24 Rx TABLETS gabapentin 300 mg capsule 300 mg PO QHS nerve pain 10/06/24 History metoprolol succinate 50 mg 50 mg PO DAILY blood pressu re 10/22/23 10/06/24 History tablet,extended release 24 hr apixaban 5 mg tablet (Eliquis) 5 mg PO BID blood thinn er 03/26/24 10/03/24 History hydrochlorothiazide 25 mg tablet 25 mg PO DAILY reduce fluid 03/26/24 10/06/24 History levothyroxine 125 mcg tablet 125 mcg PO DAILY disorder of 03/26/24 10/06/24 History thyroid gland aspirin 81 mg tablet,delayed 81 mg PO DAILY 08/31/24 0 10/03/24 History release (Adult Aspirin Regimen) multivitamin (Daily Multi-Vitamin 1 tab PO DAILY 08/3110/06/24 History tablet) Allergy/AdvReac Type Severity Reaction Status Date / Time azithromycin (From Zithromax) Allergy Itching Verified 10/07/24 10:51 bee venom protein (honey bee) AdvReac Swelling Verified 10/07/24 10:51 venom-wasp (wasps) AdvReac Swelling Verified 10/07/24 10:51 Surgical History History of total right hip arthroplasty S/P carpal tunnel release History of tonsillectomy History of ERCP Social History Smoking Status: Never smoker ROS Constitutional Constitutional: Denies fatigue, fever(s), poor appetite, weight gain or weight loss Gastrointestinal Gastrointestinal: Denies belching, bloating, change in bowel habits, change in stool character, chewing difficulty, coffee ground emesis, constipation, cramping, diarrhea, dyspepsia, dysphagia, early satiety, excessive flatus, fecal incontinence, heartburn, hematemesis, hematochezia, hemorrhoids, loose stools, melena, nausea, odynophagia, rectal bleeding, tenesmus, vomiting or weight changes Vital Signs Vital Signs Vital Signs: 10/07/24 10:53 10/07/24 10:53 Temperature 97.6 F L Temperature Source Temporal Pulse Rate 66 Respiratory Rate 16 Respiratory Pattern Normal Blood Pressure 158/80 H Blood Pressure Mean 106 Blood Pressure Source Monitor Blood Pressure Position Supine Blood Pressure Location Right Arm Pulse Ox 97 Oxygen Delivery Method Room Air Weight Weight: 289 lb 14.526 oz Body Mass Index (BMI) 41.5 Physical Exam Const alert, oriented x3, no apparent distress and healthy appearing General Appearance: cooperative GI normal to inspection, nondistended, normoactive bowel sounds, soft to palpation, non-tender and non-distended Percussion: normal to percussion Rectal Exam: deferred Assessment & Plan Assessment/Plan (1) Ampulla of Vater mass: (2) Biliary stricture: PLAN: Assessment and Plan Assessment and Plan (1) Pancreatitis: Status: Acute (2) Choledocholithiasis: Status: Acute (3) Pancreatic cyst: Status: Acute (4) Ampulla of Vater mass: Status: Acute Plan 78-year-old gentleman who presented to the emergency room with abdominal pain, jaundice and discovered to have elevated LFTs and biochemical and radiologic evidence of 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 He was also discovered to have multiple pancreatic cysts with the largest one being in the pancreatic tail at 4.2 cm. Differential diagnosis for this would be pseudocyst from previous episodes of acute pancreatitis, less likely serous cystoadenoma, IPMN and less likely mucinous cystoadenoma. He underwent ERCP with stone removal and temporary stent placement for biliary stricture. We performed a repeat ercp with stent removal. Findings: A biliary stent was visible on the weft straightener film. The esophagus was successfully intubated under direct vision. The scope was advanced to a normal major papilla in the descending duodenum without detailed examination of the pharynx, larynx and associated structures, and upper GI tract. The upper GI tract was grossly normal. A long 0.025 inch Jagwire was passed into the biliary tree. The short-nosed traction sphincterotome was passed over the guidewire and the bile duct was then deeply cannulated. Contrast was injected. I personally interpreted the bile duct images. Ductal flow of contrast was adequate. Image quality was adequate. Contrast extended to the biliary pancreatic junction. Contrast extended to the main bile duct. Contrast extended to the cystic duct. Contrast extended to the gallbladder. Contrast extended to the bifurcation. Contrast extended to the hepatic ducts. Contrast extended to the entire biliary tree. A 5 mm biliary sphincterotomy was made with a braided traction (standard) sphincterotome using ERBE electrocautery. There was no post-sphincterotomy bleeding. The biliary tree was swept with a 12 mm balloon starting at the upper third of the main bile duct, middle third of the main bile duct, lower third of the main duct, bifurcation, left intrahepatic duct(s), left main hepatic duct, right intrahepatic duct(s) and right main hepatic duct. All stones were removed. One stent was removed from the biliary tree using a snare and sent for cytology. The stent was found to be partially occluded via the water column test. A standard esophagogastroduodenoscopy scope was used for the examination of the upper gastrointestinal tract. The scope was passed under direct vision through the upper GI tract. Localized mild mucosal changes characterized by granularity were found in the area of the papilla. Biopsies were taken in the ampulla through the esophagogastroduodenoscope with the cold forceps for histology. Impression: - Mucosal changes in the duodenum. - Biopsies were taken with a cold forceps for histology in the ampulla. - Choledocholithiasis was found. Complete removal was accomplished by biliary sphincterotomy and balloon extraction. - A biliary sphincterotomy was performed. - The biliary tree was swept. - One stent was removed from the biliary tree. MICROSCOPIC DIAGNOSIS Duodenum, ampulla, biopsy: - Fragments of inflamed small intestinal mucosa with focal low dysplasia and reactive changes ? see Comment. - Focal granulation tissue consistent with ulceration - IHC for CMV (cytomegalovirus) is negative (performed at [facility]) - IHC for p53 is wild-type. - IHC for Ki67 is not significantly increased We will schedule him for a repeat endoscopic procedure for of his ampulla due to the finding of low grade dysplasia.
--- NOTE | 2024-10-07 11:50 | RAD_ITS ---
PROCEDURE: ERCP BILIARY/PANCREAS; O.R. FLUORO FOR C-ARM 10/07/2024 REASON FOR EXAM: ERCP TECHNIQUE: Intraoperative fluoroscopy was performed for ERCP. 7 fluoroscopic images were also obtained. Fluoroscopy time: 44.3 seconds. Dose: CTDIvol 24.08 mGy. DLP 1330.30 mGy-cm. RAD/O.R. Fluoro for C-Arm IMPRESSION: Intraoperative fluoroscopy was performed for ERCP. 7 fluoroscopic images were also obtained. Reading Location: [id number]
--- NOTE | 2024-10-07 11:50 | RAD_ITS ---
PROCEDURE: ERCP BILIARY/PANCREAS; O.R. FLUORO FOR C-ARM 10/07/2024 REASON FOR EXAM: ERCP TECHNIQUE: Intraoperative fluoroscopy was performed for ERCP. 7 fluoroscopic images were also obtained. Fluoroscopy time: 44.3 seconds. Dose: CTDIvol 24.08 mGy. DLP 1330.30 mGy-cm. RAD/ERCP Biliary/Pancreas IMPRESSION: Intraoperative fluoroscopy was performed for ERCP. 7 fluoroscopic images were
--- NOTE | 2024-10-07 12:00 | COLBX_PTH ---
PATIENT: FRAN PAREKH LOC: EN U#:[id number] AGE/SX: 79/M ROOM: RE10/07/[address]: Dr. Alex Sher DO : 1945 BED: DIS: 10/07/2024 SPEC #: [id number] RECD: 10/07/24 15:35 STATUS: PAPITO MARCE #: [id number] KATE: 10/07/24 12:[address]: Alex Sher DEPT: SURGICAL PATHOLOGY RECD BY: [place] ENTERED: 10/08/24 08:33 SP TYPE: COLON BX OTHR DR: Dr. Salvador Diaz MD Tissues: A - Ampulla of Vater Procedures: Surgery Specimen Level IV HEADER OPERATION: ERCP with stent placement and ampullectomy with hot snare PRE-OP DIAGNOSIS: Ampulla of Vater mass, biliary stricture TISSUE SUBMITTED: A- Ampulla per hot biopsy MICROSCOPIC DIAGNOSIS A. Small intestine, Ampulla of Vater, ampullectomy: * Minimal villous architectural distortion with focal acute and chronic inflammation, benign MICROSCOPIC DESCRIPTION Slides are reviewed. GROSS DESCRIPTION A. Received in formalin labeled with the patient's name and date of . Designated as ampulla hot snare are approximately 9 pitt tissue fragments, 0.1 cm to 0.4 cm, admixed with blood clot material. Entirely submitted in 1 cassette. Smaller fragments may not survive processing. [facility] 10/08/2024 CPT:71412
--- NOTE | 2024-10-07 12:44 | OP.ERCP_ITS ---
Patient Name: Moi Lopez Procedure Date: 10/07/2024 11:41 AM Date of : 1945 Age: 79 Procedure: ERCP Indications: Stent change, Ampullary adenoma, Bile duct stricture Providers: Alex Sher DO Referring MD: Salvador Diaz Medicines: Monitored Anesthesia Care Patient Profile: This is an 79 year old male. Refer to note in patient chart for documentation of history and physical. Patient has symptoms. His most recent ERCP for biliary evaluation, ERCP for stent and ERCP for stone removal. Complications: No immediate complications. Procedure: Pre-Anesthesia Assessment: - Prior to the procedure, a History and Physical was performed, and patient medications and allergies were reviewed. The patient is competent. The risks and benefits of the procedure and the sedation options and risks were discussed with the patient. All questions were answered and informed consent was obtained. Patient identification and proposed procedure were verified by the physician in the pre-procedure area. Mental Status Examination: alert and oriented. Airway Examination: normal oropharyngeal airway and neck mobility. Respiratory Examination: clear to auscultation. CV Examination: normal. Prophylactic Antibiotics: The patient does not require prophylactic antibiotics. Prior Anticoagulants: The patient has taken no anticoagulant or antiplatelet agents except for NSAID medication. ASA Grade Assessment: II - A patient with mild systemic disease. After reviewing the risks and benefits, the patient was deemed in satisfactory condition to undergo the procedure. The anesthesia plan was to use monitored anesthesia care (MAC). Immediately prior to administration of medications, the patient was re-assessed for adequacy to receive sedatives. The heart rate, respiratory rate, oxygen saturations, blood pressure, adequacy of pulmonary ventilation, and response to care were monitored throughout the procedure. The physical status of the patient was re-assessed after the procedure. After obtaining informed consent, the scope was passed under direct vision. Throughout the procedure, the patient's blood pressure, pulse, and oxygen saturations were monitored continuously. The Duodenoscope was introduced through the mouth, and advanced to the duodenum and used to inject contrast into the bile duct. The ERCP was accomplished without difficulty. The patient tolerated the procedure well. Scope In: 12:10:43 PM Scope Out: 12:32:17 PM Total Procedure Duration Time 0 hours 21 minutes 34 seconds Findings: The manager it training film was normal. The esophagus was successfully intubated under direct vision. The scope was advanced to a normal major papilla in the descending duodenum without detailed examination of the pharynx, larynx and associated structures, and upper GI tract. The upper GI tract was grossly normal. The bile duct was deeply cannulated with the short-nosed traction sphincterotome. Contrast was injected. I personally interpreted the bile duct images. There was brisk flow of contrast through the ducts. Image quality was adequate. Opacification of the entire opacified area was successful. The maximum diameter of the ducts was 10 mm. The lower third of the main bile duct contained a single localized stenosis 6 mm in length. The main bile duct was moderately dilated, acquired. The largest diameter was 10 mm. A cholecystectomy had been performed. A straight Roadrunner wire was passed into the biliary tree. A 5 mm ventral pancreatic sphincterotomy was made with a traction (standard) sphincterotome using ERBE electrocautery. There was no post-sphincterotomy bleeding. To discover objects, the biliary tree was swept with a basket starting at the bifurcation. All stones were removed. Sludge was swept from the duct. One 10 Fr by 5 cm temporary stent was placed 5 cm into the common bile duct. Bile flowed through the stent. The stent was in good position. A standard esophagogastroduodenoscopy scope was used for the examination of the upper gastrointestinal tract. The scope was passed under direct vision through the upper GI tract. Localized moderate mucosal changes characterized by scalloping were found in the ampulla. Coagulation for destruction of remaining portion of lesion in the ampulla using hot biopsy forceps through the ERCP scope was successful. The polyp was removed with a piecemeal technique using a hot biopsy forceps. The polypectomy was performed through the ERCP scope. Resection and retrieval were complete. A standard esophagogastroduodenoscopy scope was used for the examination of the upper gastrointestinal tract. The scope was passed under direct vision through the upper GI tract. A large-mouthed diverticulum was found in the second portion of the duodenum and in the area of the papilla. Impression: - Mucosal changes in the duodenum. - Destruction of remaining portion of lesion in the ampulla with hot biopsy forceps was performed. - Polypectomy was performed. - Duodenal diverticulum. - A single localized biliary stricture was found in the lower third of the main bile duct. The stricture was benign appearing. - The entire main bile duct was moderately dilated, acquired. - The patient has had a cholecystectomy. - Choledocholithiasis was found. Complete removal was accomplished by sweeping. - A pancreatic sphincterotomy was performed. - The biliary tree was swept and sludge was found. - One temporary stent was placed into the common bile duct. Procedure Code(s): --- Professional --- 53365, Endoscopic retrograde cholangiopancreatography (ERCP); with placement of endoscopic stent into biliary or pancreatic duct, including pre- and post-dilation and guide wire passage, when performed, including sphincterotomy, when performed, each stent 91672, Endoscopic retrograde cholangiopancreatography (ERCP); with ablation of tumor(s), polyp(s), or other lesion(s), including pre- and post-dilation and guide wire passage, when performed 89629, Endoscopic retrograde cholangiopancreatography (ERCP); with removal of calculi/debris from biliary/pancreatic duct(s) 19786, 59, Endoscopic retrograde cholangiopancreatography (ERCP); with sphincterotomy/papillotomy 48712, Esophagogastroduodenoscopy, flexible, transoral; with removal of tumor(s), polyp(s), or other lesion(s) by hot biopsy forceps 48518, 26, Endoscopic catheterization of the biliary ductal system, radiological supervision and interpretation CPT copyright 2021 [employer]. All rights reserved. The codes documented in this report are preliminary and upon accounts adjustable clerk review may be revised to meet current compliance requirements. Alex Sher DO 10/07/2024 12:44:24 PM This report has been signed electronically. Number of Addenda: 0 Note Initiated On: 10/07/2024 11:41 AM
--- NOTE | 2024-10-07 12:44 | OP.CCLET_ITS ---
10/07/2024 Salvador Diaz Re : ERCP procedure for Moi Gilbertervin Diaz This procedure was performed on Monday, October 07, 2024. My impressions and recommendations are as follows: Impressions : - Mucosal changes in the duodenum. - Destruction of remaining portion of lesion in the ampulla with hot biopsy forceps was performed. - Polypectomy was performed. - Duodenal diverticulum. - A single localized biliary stricture was found in the lower third of the main bile duct. The stricture was benign appearing. - The entire main bile duct was moderately dilated, acquired. - The patient has had a cholecystectomy. - Choledocholithiasis was found. Complete removal was accomplished by sweeping. - A pancreatic sphincterotomy was performed. - The biliary tree was swept and sludge was found. - One temporary stent was placed into the common bile duct. Recommendations : My findings are described in the full procedure note, which is enclosed. If I can be of further assistance, please feel free to contact me at . Sincerely, Alex Sher DO 10/07/2024 12:44:24 PM This report has been signed electronically.
--- NOTE | 2024-10-07 12:49 | PCM.POST.ANE ---
Anesthesia: Postop Eval I Current Vital Signs Temperature: 97.8 F Pulse Rate: 67 Blood Pressure: 145/84 Respiratory Rate: 16 Pulse Ox: 95 Oxygen Delivery Method: Room Air Assessment Airway patent: Yes Spontaneous unlabored respirations: Yes Mental status: Awake and Calm nausea: No Vomiting: No Anesthesia Complication: No Fluid Hydration Crystalloid volume administer (ml): 600 Total IV fluid infused: 600 Progress Note Anesthesia document: Postop Eval 1 completed: Yes
--- NOTE | 2024-10-07 12:58 | SUR.PHASEI ---
DR. LLOYD AT BEDSIDE TALKING WITH PATIENT. PATIENT STATED THAT HE IS VERY NAUSEATED, BUT NOT HAVING ANY PAIN. THIS RN GAVE PATIENT QUEASE-EASE AND ALSO GAVE ZOFRAN AT 1255. PT HAS NO RELIEF OF NAUSEA. DR. LLOYD GAVE VERBAL ORDERS FOR PROTONIX 40MG IV X1 AND REGLAN 10MG IV X1. ORDERS READ BACK TO DR. LLOYD AND HE AGREED. DR. LLOYD LEFT BEDSIDE. PATIENT DENIES ANY PAIN.
[2024-10-07] MEDS: Metoclopramide 10 MG/2 ML Vial IV (13:07)
[2024-10-07] MEDS: Pantoprazole Sodium 40 MG in 0.9% Normal Saline (100mL MB+) 100 ML 330 MG IV (13:19)
--- NOTE | 2024-10-07 13:24 | PCM.POSTANE2 ---
Anesthesia Postop Eval I Sum Postop Eval Completion status Anesthesia document: Postop Eval 1 completed: Yes Anesthesia Postop Eval I Summary Anesthesia Postop Eval I Summary: Anesthesia Postop Eval I: Assessment Summary Airway patent Yes 10/07/24 12:50 [email or web address] Spontaneous unlabored Yes 10/07/24 12:50 [email or web address] respirations Mental status Awake,Calm 10/07/24 12:50 [email or web address] nausea No 10/07/24 12:50 [email or web address] Vomiting No 10/07/24 12:50 [email or web address] Anesthesia Postop Eval I: Fluid Summary Crystalloid volume administer 600 10/07/24 12:50 [email or web address] (ml) Colloids volume administered ( ml) Blood Product volume administered (ml) Total IV fluid infused 600 10/07/24 12:50 [email or web address] Anesthesia Postop Eval I: Summary Notes Anesthesia Complication No 10/07/24 12:50 [email or web address] Anesthesia Complication Comment: Post-operative progress note Anesthesia: Postop Eval II Evaluation Mental status: Awake Pain Level: 0 nausea: No Vomiting: No
== END 2024-10-07 14:07 | disposition home or self-care (01) ==
LOC: EN 10:24 → AC 10:25
PROVIDERS: PCP Family Medicine; Referring Provider Family Medicine; Visit Provider Internal Medicine Gastroenterology
PROC: (CPT 43260; principal; 2024-10-07 11:40)
DX: K80.51 Calculus of bile duct without cholangitis or cholecystitis with obstruction (principal); K85.90 Acute pancreatitis without necrosis or infection, unspecified; I10 Essential (primary) hypertension; K86.2 Cyst of pancreas; K83.8 Other specified diseases of biliary tract; Z79.01 Long term (current) use of anticoagulants; Z79.82 Long term (current) use of aspirin; Z79.899 Other long term (current) drug therapy
CPT/HCPCS: 43274; 43275; 43264; 43250; 74330; 76000; 88305; 93005; C2625; J2405

== ENCOUNTER 2024-10-21 23:17 | Inpatient (IN) | payer MEDICARE, OTHER, SELFPAY ==
[2024-10-21 23:17] VITALS: BP 116/65; PULSE 76; RESP 16; TEMP 37.8; O2SAT 98; BMI 42.9
[2024-10-21 23:23] VITALS: BP 116/65; PULSE 75; RESP 16; TEMP 37.8; O2SAT 94
[2024-10-22] VITALS (18 sets, daily range): BP systolic 97–136; BP diastolic 52–70; PULSE 53–81; RESP 15–19; TEMP 36.2–37.4; O2SAT 93–98; BMI 42.0
--- OUTSIDE RECORDS SUMMARY | 2024-10-22 00:02 | XMS RPT_ITS | CCD ---
Author Organization [facility] Care Team Providers Care Cathead Worker Name Role Phone Bruna Chowdary Unavailable Unavailable Scott Pal MD Unavailable Scott Pal MD Unavailable Lia PT, Caroline Unavailable Poppy Garcia MD Unavailable Agnes Diaz MD Primary Care Provider Scott Pal MD Unavailable Scott Pal MD Unavailable Lia PT, Caroline Unavailable Poppy Garcia MD Unavailable Agnes Diaz MD Primary Care Provider Scott Pal MD Unavailable Lia PT, Caroline Unavailable Agnes Diaz MD Primary Care Provider Scott Pal MD Unavailable Scott Pal MD Unavailable Lia PT, Caroline Unavailable Poppy Garcia MD Unavailable Agnes Diaz MD Primary Care Provider Lia PT, Caroline Unavailable Poppy Garcia MD Unavailable Bruna Chowdary Attending Unavailable Cebul III, Dr. Macario Dobbins Primary Care Unava ilable Self, Referral Referring Unavailable Cebul III, Dr. Macario Dobbins Primary Care Unava ilable ZITA, ASIF Attending Unavailable Bruna Chowdary Referring Unavailable Lia PT, Caroline Unavailable Agnes Diaz MD Primary Care Provider Aaliyah Herrera MD Unavailable Unavailable Leonila Triana RN Unavailable Lia PT, Caroline Unavailable BRUNA CHOWDARY L Attending Unavailable MACARIO HOPKINS Primary Care Unavailable AGNES DIAZ Primary Care Unavailab le PODLOGAR, MARILIA Referring Unavailable Mitchel Walters RN Unavailable Podlogar RECORD TESTER.SUPERVISOR REMELT, Marilia Unavailable Macario Hopkins MD Primary Care Provider Carin FORD, Dr. Franco Primary Care Provider Sang HILL, Dr. Guzman Emergency Provider Zach HILL, Dr. Mendez Admit Provider Dr. Andrea Serrano DO Other Provider Wally FORD, Dr. Altagracia Chaidez Attending Provider Shahzad FORD, Dr. Beau Jose Other Provider Wally FORD, Dr. Altagracia Chaidez Referring Provider Wally FORD, Dr. Altagracia Chaidez Other Provider Dr. Alex Sher DO Attending Provider Robbie FORD, Dr. Martin Attending Provider [phone] Carin FORD, Dr. Franco Referring Provider Dr. Alex Sher DO Other Provider Ever RECORD TESTER.Amanda [place] Unavailable Carin FORD, Dr. Franco Primary Care Provider Rossy FORD, Dr. Oreilly Attending Provider Rossy FORD, Dr. Oreilly Referring Provider Carin FORD, Dr. Franco Referring Provider Nikky HILL, Dr. Johnson Attending Provider Friend , Dr. Johnson Other Provider Farooq FORD, Isaias Attending Provider Farooq FORD, Isaias Emergency Provider Chicho FORD, Dr. Simmons Attending Provider Rosie FORD, Dr. Esparza Attending Provider VICTOR MANUEL SAVAGE Attending Unavailable VIRIDIANAMARQUITA Jose Referring Unavailable AGNES DIAZ B Primary Care Unavailab le MARKOS, VICTOR MANUEL Attending Unavailable AGNES DIAZ Primary Care Unavailab le AGNES DIAZ Primary Care Unavailab le SHANUPAHVLAD, VICTOR MANUEL Attending Unavailable DONN RODRIGUEZ Attending Unavailable DONN RODRIGUEZ Admitting Unavailable ANA FRAGOSO Referring Unavailable AGNES DIAZ B Primary Care Unavailab le KIRUPAHARAN, PRAJOCELYNEAB Referring Unavailable AGNES DIAZ B Primary Care Unavailab le AGNES DIAZ B Primary Care Unavailab le PODLOGAR, MARILIA Referring Unavailable AGNES DIAZ B Primary Care Unavailab le SHANUPAHVLAD, PRAJOCELYNEAB Referring Unavailable ELMER DIAZER B Primary Care Unavailab le AGNES DIAZ Attending Unavailab le ELMER DIAZER B Primary Care Unavailab le PODLOGAR, MARILIA Attending Unavailable AGNES DIAZ B Primary Care Unavailab le PODLOGAR, MARILIA Attending Unavailable AGNES DIAZ Primary Care Unavailab le PODLOGAR, MARILIA Referring Unavailable AGNES DIAZ Primary Care Unavailab le PODLOGAR, MARILIA Attending Unavailable AGNES DIAZ Primary Care Unavailab le PODLOGAR, MARILIA Attending Unavailable AGNES DIAZ Primary Care Unavailab le AGNES DIAZ B Primary Care Unavailab le PODLOGAR, MARILIA Referring Unavailable AGNES DIAZ Primary Care Unavailab le PODLOGAR, MARILIA Referring Unavailable AGNES DIAZ Primary Care Unavailab le AGNES DIAZ Attending Unavailab le AGNES DIAZ Primary Care Unavailab le BURSCARMEL, ELMERER B Referring Unavailab le GOLIAS, YOGESH Attending Unavailable AGNES DIAZ Primary Care Unavailab le ELMER DIAZER Matty Referring Unavailab le GOLIAS, YOGESH Attending Unavailable AGNES DIAZ Primary Care Unavailab le KIRUPAHARAN, PRADHAB Referring Unavailable SIDRA GÓMEZ Attending Unava ilable AGNES DIAZ Primary Care Unavailab le PODLOGAR, MARILIA Attending Unavailable AGNES DIAZ Primary Care Unavailab le PODLOGAR, MARILIA Referring Unavailable ELMER DIAZER Matty Primary Care Unavailab le ELMER DIAZER B Referring Unavailab le GOLIAS, YOGESH Attending Unavailable AGNES DIAZ Primary Care Unavailab le AGNES DIAZ Referring Unavailab le CARIN, ELMERER B Primary Care Unavailab le CARIN, ELMERER B Referring Unavailab le GOLIAS, YOGESH Attending Unavailable COLE ALMANZA Attending Unavailable AGNES DIAZ B Primary Care Unavailab le CHRISTIELEY, ELMERER B Primary Care Unavailab le PODLOGAR, MARILIA Attending Unavailable AGNES DIAZ Primary Care Unavailab le CARIN, ELMERER B Primary Care Unavailab le KIRUPAHARAN, PRADHAB Referring Unavailable AGNES DIAZ B Primary Care Unavailab le PODLOGAR, MARILIA Attending Unavailable Ever MORTON.SUPERVISOR REMELT, Amanda Unavailable Friend, Alex Attending Unavailable Salvador Diaz Referring Unavailable Friend, Alex Consulting Unavailable Bursley, Salvador Primary Care Unavailable Friend, Alex Attending Unavailable BursleyElmere Referring Unavailable Friend, Alex Consulting Unavailable Bursley, Salvador Primary Care Unavailable Andrea Serrano Admitting Unavailable Burscarmel, Salvador Primary Care Unavailable Andrea Serrano Consulting Unavailable Andrea Serrano Attending Unavailable Altagracia Lo Consulting Unavailable Denilson Blair Referring Unavailable Denilson Blair Attending Unavailable Bursley, Salvador Primary Care Unavailable Friend, Alex Attending Unavailable Koram, Altagracia Kaylynn Referring Unavailable Koram, Altagracia Kaylynn Attending Unavailable Mario Avalos Attending Unavailable Beau Pike Consulting Unavailable Ana Fragoso Attending Unavailable Bursley, Salvador Primary Care Unavailable Livan Freed Attending Unavailable Friend, Alex Referring Unavailable Bursley, Salvador Primary Care Unavailable Friend, Alex Attending Unavailable Koram, Altagracia Kaylynn Referring Unavailable Bursley, Salvador Primary Care Unavailable Isaias Velez Attending Unavailable Bursley, Salvador Primary Care Unavailable Bursley, Salvador Primary Care Unavailable Bursley, Salvador Referring Unavailable Friend, Alex Attending Unavailable Bursley, Salvador Primary Care Unavailable Isaias Trivedi Attending Unavailable Leo Hansen Attending Unavailable Bursley, Salvador Primary Care Unavailable Koram, Altagracia Kaylynn Attending Unavailable Andrea Serrano Admitting Unavailable Bursley, Salvador Primary Care Unavailable Andrea Serrano Consulting Unavailable Beau Pike Consulting Unavailable Friend, Alex Attending Unavailable Bursley, Salvador Referring Unavailable Bursley, Salvador Primary Care Unavailable Friend, Alex Attending Unavailable Bursley, Salvador Referring Unavailable Bursley, Salvador Primary Care Unavailable Bursley, Salvador Primary Care Unavailable Bursley, Salvador Referring Unavailable Friend, Alex Attending Unavailable Troy Valentino Attending Unavailable Bursley, Salvador Referring Unavailable Bursley, Salvador Primary Care Unavailable Allergies Allergy Classification Reported Allergen(s) Allergy Type Date of Onset Reaction(s) Facility amLODIPine (2 sources) amLODIPine Drug Allergy 7 [facility] Macrolides (antibiotic) (2 sources) Azithromycin Drug Allergy 5 Itching [facility] (3 sources) Azithromycin Drug Allergy 4 [facility] (20 sources) amLODIPine; Translations: [AMLODIPINE BESYLATE] Drug Allergy 7 [facility] (20 sources) Azithromycin; Translations: [AZITHROMYCIN] Drug Allergy 5 Itching [facility] Work Phone: (20 sources) Venom-Wasp; Translations: [VENOM-WASP] Propensity to adverse reactions 5 Swelling [facility] Work Phone: (4 sources) bee venom protein (honey bee) Propensity to adverse reactions 5 Swelling [facility] (1 source) Azithromycin Drug Allergy 5 [facility] (1 source) venom-wasp Drug allergy (disorder) 5 [facility] (1 source) bee venom protein (honey bee) Drug allergy (disorder) 5 [facility] Medications Current Medications Medication Drug Class(es) Dates Sig (Normalized) Sig (Original) 8 hr acetaminophen 650 mg extended release oral tablet (20 sources) acetaminophen 65 0 mg CR tablet Take 650 mg by mouth as needed. Active Comment on above: Take 650 mg by mouth as needed. apixaban 5 mg oral tablet (20 sources) Factor Xa Inhibitor Start: 11-22-2023 End: 09-25-2024 take 1 tablet by mouth twice daily apixaban (ELIQUIS) 5 mg tab(s) Take 1 tablet by mouth two times a day. 180 tablet 5 09/25/2024 Active Start: 10-24-2023 End: 05-21-2024 take 2 tablets by mouth twice daily, then take 1 tablet by mouth twice daily apixaban (ELIQUIS) 5 mg tab(s) Take 2 tablets (10 mg) by mouth twice daily for 6 days. Then take 1 tablet (5 mg) by mouth twice daily 72 tablet 10/24/2023 05/21/2024 Discontinued (Course of therapy completed) Start: 10-24-2023 End: 11-23-2023 take 2 tablets by mouth twice daily, then take 1 tablet by mouth twice daily apixaban (ELIQUIS DVT-PE TREAT 30D START) 5 mg (74 tabs) Take 2 tablets (10 mg) by mouth twice daily for 7 days. Then take 1 tablet (5 mg) by mouth twice daily for 23 days 74 tablet 0 10/24/2023 11/23/2023 Active aspirin 81 mg delayed release oral tablet (20 sources) Platelet Aggregation Inhibitor, Nonsteroidal Anti-inflammatory Drug Start: 08-31-2024 take 1 tablet by mouth once daily Aspirin (Adult Aspirin Regimen) 81 mg tablet,delayed release (DR/EC) Active 81 mg PO DAILY August 31, 2024 12:00am Start: 09-05-2016 End: 10-22-2023 take 1 tablet by mouth once daily Aspirin 81 MG tablet Discontinued 81 mg PO DAILY@0800 90 September 05, 2016 12:00am October 22, 2023 3:59pm Comment on above: Take 81 mg by mouth once daily. atorvastatin 40 mg oral tablet (20 sources) HMG-CoA Reductase Inhibitor Start: 5 take 1 tablet by mouth once daily atorvastatin (LIPITOR) 40 mg tablet Indications: Hyperlipidemia LDL goal Take 1 tablet by mouth once daily. 90 tablet 3 08/21/2024 Active Start: 09-05-2016 End: 03-07-2023 take 1 tablet by mouth once daily atorvastatin (LIPITOR) 40 mg tablet Indications: Hyperlipidemia LDL goal Take 1 tablet by mouth once daily. 90 tablet 3 08/21/2024 Active Comment on above: Take 1 tablet by lazaro once daily. benzonatate 100 mg oral capsule (1 source) Non-narcotic Antitussive Start: 3 End: 3 take 1 capsule by mouth every eight hours as needed for cough benzonatate (TESSALON PERLE) 100 mg capsule Indications: URI, acute Take 1 capsule by mouth every 8 hours as needed for cough for up to 15 days. 30 capsule 0 05/23/2022 06/07/2022 Active Comment on above: Take 1 capsule by mo [facility] every 8 hours as needed for cough for up to 15 days. CPAP (20 sources) Start: 2 CPAP Indications: MARTIN on CPAP AutoPAP [id number]. Mask per preference, tubing, filters, humidity. Lifetime Supplies. Dx: G47.33. Fax 30 day compliance report to [phone]. 1 Each 999 02/11/2022 Suspended Start: 02-11-2022 CPAP Indicatio ns: MARTIN on CPAP AutoPAP [id number]. Mask per preference, tubing, filters, humidity. Lifetime Supplies. Dx: G47.33. Fax 30 day compliance report to [phone]. 1 Each 999 02/11/2022 Active Start: 02-11-2021 CPAP Indicatio ns: MARTIN on CPAP Please provide mask fitting. Pt with subjective and some degree objective leaks. Prefers nasal type mask. Thank you. DME = [facility] 1 Each 02/11/2021 Suspended Start: 02-11-2021 CPAP Indicatio ns: MARTIN on CPAP Please provide mask fitting. Pt with subjective and some degree objective leaks. Prefers nasal type mask. Thank you. DME = [facility] 1 Each 02/11/2021 Active Start: 08-10-2016 End: 02-11-2022 CPAP AutoPAP [id number]. Mask per preference, tubing, filters, humidity. Lifetime Supplies. Dx: G47.33. Fax 30 day compliance report to [phone]. 1 Device 0 08/10/2016 02/11/2022 Discontinued Start: 08-10-2016 CPAP AutoPAP [id number]. Mask per preference, tubing, filters, humidity. Lifetime Supplies. Dx: G47.33. Fax 30 day compliance report to [phone]. 1 Device 0 08/10/2016 Active Comment on above: AutoPAP [id number]. M ask per preference, tubing, filters, humidity. Lifetime Supplies. Dx: G47.33. Fax 30 day compliance report to [phone]. Please provide mask fitting. Pt with subjective and some degree objective leaks. Prefers nasal type mask. Thank you. DME = [facility] AutoPAP [id number]. Mask per preference, tubing, filters, humidity. Lifetime Supplies. Dx: G47.33. Fax 30 day compliance report to [phone]. doxycycline hyclate 100 mg oral tablet (5 sources) Tetracycline-class Drug Start : 01-21 End: 01-31 take 1 tablet by mouth twice daily doxycycline (VIBRA-TABS) 100 mg tablet Indications: Pain and swelling of right lower leg , Cellulitis of skin Take 1 tablet by mouth two times a day for 10 days. 20 tablet 01/22/2024 02/01/2024 Active gabapentin 300 mg oral capsule (20 sources) Anti-epileptic Agent Start : 07-26 take 1 capsule by mouth once daily at bedtime gabapentin (NEURONTIN) 300 mg capsule Take 300 mg by mouth daily at bedtime. 07/27/2023 Active Comment on above: Take 300 mg by mouth daily at bedtime. hydroCHLOROthiazide 25 mg oral tablet (20 sources) Thiazide Diuretic Start : 01-23 End: 04-12 take 1 tablet by mouth once daily hydroCHLOROthiazide 25 mg tablet Indications: Essential hypertension, benign Take 1 tablet by mouth once daily. 90 tablet 1 04/13/2024 Active Start: 03-31-2021 End: 05-11-2022 take 1 tablet by mouth once daily hydroCHLOROthiazide (HYDRODIURIL, ESIDRIX) 25 mg tablet Indications: Essential hypertension, benign Take 1 tablet by mouth once daily. 90 tablet 1 05/11/2022 Active Comment on above: Take 1 tablet by lazaro th once daily. hydrocortisone 10 mg/ml / neomycin 3.5 mg/ml / polymyxin b 93840 unt/ml otic suspension (1 source) Aminoglycoside Antibacterial, Polymyxin-class Antibacterial, Corticosteroid Start: 11-11-2021 End: 11-18-2021 [id number] drocortisone (CORTISPORIN) 3.5-10,000-1 mg/mL-unit/mL-% otic suspension Use 3 Drops in both ears three times daily for 7 days. 10 mL 0 11/11/2021 11/18/2021 Active Comment on above: Use 3 Drops in both ears three times daily for 7 days. ammonium lactate 120 mg/ml topical cream (20 sources) Start: 12-19-2023 End: 01-14-2025 ammonium lactate (LAC-HYDRIN) 12 % cream Apply to affected area as needed. Apply on thick skin 140 g 1 12/19/2023 Active Start: 01-04-2019 [id number] Medicat ion ammonium lactate 12 % lotion AmLactin 12 % lotion 12 % 1 Application to affected area daily 01/04/2019 Prior History No Longer Active levothyroxine sodium 0.125 mg oral tablet (20 sources) l-Thyroxine Start: 03-29-2022 End: 05-21-2024 take 1 tablet by mouth once daily for thyroid dysfunction levothyroxine (SYNTHROID) 125 mcg tablet TAKE 1 TABLET BY MOUTH EVERY DAY ON AN EMPTY STOMACH FOR THYROID 90 tablet 3 05/21/2024 Active Start: 04-06-2021 take 1 tablet by lazaro th once daily for thyroid dysfunction, then take 1 tablet by mouth once daily for thyroid dysfunction levothyroxine (SYNTHROID) 125 mcg tablet Take 1 tablet by mouth once daily. TAKE 1 TABLET BY MOUTH ONCE DAILY. TAKE ON EMPTY STOMACH. FOR THYROID 90 tablet 3 04/06/2021 Active Start: 09-04-2016 End: 03-26-2024 take 1 tablet by mouth once daily Levothyroxine 100 MC G tablet Discontinued 100 ug PO DAILY September 04, 2016 12:00am March 26, 2024 9:48am Start: 02-14-2014 [id number] Medicat ion levothyroxine 200 mcg tablet Synthroid 200 mcg 02/14/2014 Active (Outside) Comment on above: Take 1 tablet by lazaro th once daily. TAKE 1 TABLET BY MOUTH ONCE DAILY. TAKE ON EMPTY STOMACH. FOR THYROID TAKE 1 TABLET BY LAZARO TH EVERY DAY ON AN EMPTY STOMACH FOR THYROID lisinopril 40 mg oral tablet (20 sources) Angiotensin Converting Enzyme Inhibitor Start: 02-14-2014 [id number] Medication lisinopril lisinopril 20 mg 02/14/2014 Active (Outside) Start: 01-31-2013 End: 07-26-2024 take 1 tablet by mouth once daily lisinopril (ZESTRIL) 40 mg tablet Indications: Essential hypertension, benign Take 1 tablet by mouth once daily. 90 tablet 1 07/26/2024 Active Comment on above: Take 1 tablet by lazaro th once daily. meloxicam 15 mg oral tablet (3 sources) Nonsteroidal Anti-inflammatory Drug Start: 10-06-19 End: 11-05-19 take 1 tablet by mouth once daily at mealtime meloxicam (MOBIC) 15 mg tablet Indications: Cervical radiculopathy Take 1 tablet by mouth once daily. With food. 30 tablet 0 10/05/2021 11/04/2021 Active Comment on above: Take 1 tablet by lazaro th once daily. With food. 24 hr metoprolol succinate 50 mg extended release oral tablet (20 sources) beta-Adrenergic Adebayo Start: 06-16-19 End: 02-09-20 take 1 tablet by mouth once daily metoprolol succinate ER (TOPROL XL) 50 mg 24 hr tablet Indications: Essential hypertension, benign Take 1 tablet by mouth once daily. 90 tablet 1 08/12/2024 02/08/2025 Active Start: 01-23-2023 End: 06-16-2023 take 1 tablet by mouth once daily metoprolol succinate ER (TOPROL XL) 25 mg 24 hr tablet Indications: ASHD (arteriosclerotic heart disease) , Hyperlipidemia LDL goal Take 1 tablet by mouth once daily. 90 tablet 1 01/23/2023 06/16/2023 Discontinued Start: 10-05-2020 End: 12-17-2021 take 1 tablet by mouth once daily metoprolol succinate ER (TOPROL XL) 25 mg 24 hr tablet Indications: ASHD (arteriosclerotic heart disease) , Hyperlipidemia LDL goal Take 1 tablet by mouth once daily. 90 tablet 3 12/17/2021 Active Comment on above: Take 1 tablet by lazaro th once daily. Multivitamin (Daily Multi-Vitamin) tablet (3 sources) Start: 08-31-2024 Multivitamin (Daily Multi-Vitamin) tablet Active 1 {tbl} PO DAILY August 31, 2024 12:00am MULTIVITAMIN,TX-MINERA LS ORAL TAB (20 sources) Start: 01-14-2005 take 1 tablet by mouth once daily MULTIVITAMIN,TX-VP REVENUE CYCLE ALS ORAL TAB Take one(1) tablet daily. 60 0 01/14/2005 Suspended Start: 01-14-2005 take 1 tablet by lazaro th once daily MULTIVITAMIN,TX-MINERALS ORAL TAB Take one(1) tablet daily. 60 0 01/14/2005 Active Comment on above: Take one(1) tablet d aily. tiZANidine 2 mg oral tablet (20 sources) Central alpha-2 Adrenergic Agonist Start: 4 take 1 tablet by mouth every six hours as needed tiZANidine (ZANAFLEX) 2 mg tablet Indications: Upper back pain Take 1 tablet by mouth every 6 hours as needed. 30 tablet 1 02/14/2024 Active valACYclovir 1000 mg oral tablet (1 source) Herpesvirus Nucleoside Analog DNA Polymerase Inhibitor, Herpes Simplex Virus Nucleoside Analog DNA Polymerase Inhibitor, Herpes Zoster Virus Nucleoside Analog DNA Polymerase Inhibitor Start: 4 End: 4 take 1 tablet by mouth three times daily valACYclovir (VALTREX) 1 gram tablet Take 1 tablet by mouth three times a day for 7 days. 21 tablet 0 10/09/2023 10/16/2023 Active Completed/Discontinued Medications Medication Drug Class(es) Dates Sig (Normalized) Sig (Original) acetaminophen 325 mg / HYDROcodone bitartrate 5 mg oral tablet (3 sources) Opioid Agonist Start: 08-31-2024 End: 09-17-2024 Hydrocodone-Aceta minophen 5-325 mg tablet Discontinued 0.5 - 1 {tbl} PO THREE TIMES A DAY as needed for pain August 31, 2024 12:00am September 17, 2024 9:43am amLODIPine 5 mg oral tablet (6 sources) Dihydropyridine Calcium Channel Adebayo Start: 09-04-2016 End: 10-22-2023 take 1 tablet by mouth once daily Amlodipine 5 MG tablet Discontinued 5 mg PO DAILY September 04, 2016 12:00am October 22, 2023 4:01pm amoxicillin 500 mg oral capsule (20 sources) Penicillin-class Antibacterial Start: 06-10-2022 End: 08-13-2024 amoxicillin (POLYMOX, AMOXIL) 500 mg capsule 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 4 capsule 3 06/10/2022 08/13/2024 Discontinued (Course of therapy completed) Comment on above: Take four capsules o ne hour before dental procedure. cefdinir 300 mg oral capsule (14 sources) Cephalosporin Antibacterial Start: 03-28-2024 End: 08-13-2024 take 1 capsule by mouth twice daily Cefdinir 300 mg capsule Discontinued 300 mg PO TWICE A DAY March 28, 2024 1:00am July 02, 2024 3:51pm cephalexin 500 mg oral capsule (13 sources) Cephalosporin Antibacterial Start: 01-19-2024 End: 03-29-2024 take 1 capsule by mouth three times daily cephALEXin (KEFLEX) 500 mg capsule Indications: Pain and swelling of right lower leg Take 1 capsule by mouth three times a day. 15 capsule 01/19/2024 03/29/2024 Discontinued (Course of therapy completed) fluorouracil 50 mg/ml topical cream (3 sources) Nucleoside Metabolic Inhibitor Start: 01-04-2019 [id number] Medication fluorouracil 5 % topical cream fluorouracil 5 % topical cream 5 % 1 Application topically twice a day 01/04/2019 Prior History No Longer Active naproxen sodium 220 mg oral tablet (20 sources) Nonsteroidal Anti-inflammatory Drug End: 10-27-2023 take 1 tablet by mouth twice daily at mealtime naproxen sodium (ALEVE) 220 mg tablet Take 220 mg by mouth twice daily with meals. 10/27/2023 Discontinued Comment on above: Take 220 mg by mouth twice daily with meals. niacinamide 500 mg oral tablet (6 sources) Start: 09-04-2016 End: 10-22-2023 take 1 tablet by mouth once daily Niacinamide (Niacin (Niacinamide)) 500 MG tablet Discontinued 500 mg PO DAILY September 04, 2016 12:00am October 22, 2023 4:01pm omeprazole 20 mg delayed release oral tablet (6 sources) Proton Pump Inhibitor Start: 09-04-2016 End: 10-22-2023 take 1 tablet by mouth once daily Omeprazole Magnesium (Prilosec Otc) 20 MG tablet,delayed release (DR/EC) Discontinued 20 mg PO DAILY September 04, 2016 12:00am October 22, 2023 3:59pm perflutren lipid microspheres 1.3 mL in NaCl (PF) 0.9% 10 mL injection (DEFINITY) (20 sources) Start: 01-16-2024 End: 01-16-2024 perflutren lipid microspheres 1.3 mL in NaCl (PF) 0.9% 10 mL injection (DEFINITY) Start: 01-16-2024 End: 01-16-2024 take 1 dose intravenously once as needed INTRAVENOUS, DIRECTED NEEDED, 1 dose, Starting on Mon01/16/24 at 1327, Until Mon01/16/24 at 1349, Per Protocol - for use during ECHO procedure only, If no IV access, insert saline lock prior to administering contrast. Discontinue saline lock post exam. If patient has central line or IVAD, may access for administration according to line specific nursing protocol. Once exam is complete, flush line and de-access per line specific nursing protocol.Dilute 1.3 ml of Definity with 8.7 ml of preservative-free saline., Cardiac Procedure Med Orders Start: 11-02-2022 End: 02-01-2024 perflutren lipid microsphere s 1.3 mL in NaCl (PF) 0.9% 10 mL injection (DEFINITY) 125 ml sodium chloride 9 mg/ml prefilled syringe (20 sources) Start: 01-16-2024 End: 01-16-2024 10 mL, INTRAVENOUS, DIREC SHELTON NEEDED, 1 dose, Starting on Mon01/16/24 at 1327, Until Mon01/16/24 at 1351, Per Protocol - for use during ECHO procedure only, no IV access, insert saline lock prior to administering contrast. Discontinue saline lock post exam. If patient has central line or IVAD, may access for administration according to line specific nursing protocol. Once exam is complete, flush line and de-access per line specific nursing protocol., Cardiac Procedure Med Orders Start: 11-02-2022 End: 02-01-2024 sodium chloride 0.9 % (flush ) 10 mL (BD POSIFLUSH) sulfamethoxazole 800 mg / trimethoprim 160 mg oral tablet (12 sources) Dihydrofolate Reductase Inhibitor Antibacterial, Sulfonamide Antimicrobial Start: 01-26-2024 End: 04-01-2024 take 1 tablet by mouth every twelve hours sulfamethoxazole-trimethoprim (BACTRIM DS) 800-160 mg per tablet Take 1 tablet by mouth every 12 hours. 01/26/2024 04/01/2024 Discontinued (Course of therapy completed) Start: 01-26-2024 End: 03-26-2024 Sulfamethoxazole-Trimethopri m (Bactrim Ds) 800-160 mg tablet Discontinued 1 {tbl} PO TWICE A DAY January 26, 2024 12:00am March 26, 2024 3:06am tretinoin 1 mg/ml topical cream (3 sources) Retinoid Start: 02-28-2017 Medicat ion tretinoin 0.1 % topical cream tretinoin 0.1 % topical cream 0.1 % 1 Application topically daily 02/28/2017 Prior History No Longer Active Problems Active Problems Problem Classification Problem Date Documented Da te Episodic/Chronic Abdominal pain (20 sources) Right flank pain; Translations: [Unspecified abdominal pain] Onset: 3 Resolved: 5 05-09-2014 Episodic Administrative/social admission (1 source) Advance directive discussed with patient; Translations: [Other specified counseling] Episodic Biliary tract disease (19 sources) Biliary stricture; Translations: [Obstruction of bile duct] Onset: 5 07-04-2024 Chronic Biliary tract disease (20 sources) Calculus of bile duct with obstruction; Translations: [Calculus of bile duct without cholangitis or cholecystitis with obstruction] Onset: 4 04-01-2024 Episodic Chronic kidney disease (20 sources) Chronic kidney disease stage 3A ; Translations: [Stage 3a chronic kidney disease] Onset: 0 04-29-2020 Chronic Chronic kidney disease (2 sources) Chronic kidney disease; Translations: [Stage 3a chronic kidney disease (HCC)] Onset: 0 Complications of surgical procedures or medical care (3 sources) Drug therapy finding; Translations: [Unspecified adverse effect of drug or medicament, initial encounter] 09-08-2024 Episodic Congestive heart failure; nonhypertensive (20 sources) Right ventricular failure; Translations: [Right heart failure, unspecified] Onset: 4 10-24-2023 Chronic Coronary atherosclerosis and other heart disease (20 sources) Coronary arteriosclerosis; Translations: [Atherosclerotic heart disease of ruby coronary artery without angina pectoris] Onset: 7 09-14-2016 Chronic Delirium, dementia, and amnestic and other cognitive disorders (20 sources) Senile asthenia; Translations: [Age-related physical debility] Onset: 2 Chronic Diabetes mellitus without complication (5 sources) Increased glucose level; Translations: [Other abnormal glucose] Onset: 5 Episodic Diseases of white blood cells (4 sources) Leukocytosis; Translations: [Elevated white blood cell count, unspecified] 03-26-2024 Chronic Disorders of lipid metabolism (20 sources) Hyperlipidemia; Translations: [Hyperlipidemia, unspecified] Onset: 7 09-14-2016 Chronic Essential hypertension (20 sources) Benign essential hypertension; Translations: [Essential (primary) hypertension] Onset: 5 05-13-2019 Chronic Hyperplasia of prostate (20 sources) Benign prostatic hypertrophy with outflow obstruction; Translations: [Benign prostatic hyperplasia with lower urinary tract symptoms] Onset: 7 05-10-2016 Chronic Joint disorders and dislocations; trauma-related (20 sources) Derangement of right knee; Translations: [Unspecified internal derangement of right knee] Onset: 3 05-07-2012 Chronic Neoplasms of unspecified nature or uncertain behavior (8 sources) Neoplasm of unspecified behavior of bone, soft tissue, and skin; Translations: [Neoplasm of uncertain behavior of skin] Onset: 5 Episodic Nonspecific chest pain (6 sources) Chest pain; Translations: [Chest pain, unspecified] 09-04-2016 Episodic Osteoarthritis (20 sources) Arthritis of hip; Translations: [Unilateral primary osteoarthritis, unspecified hip] Onset: 9 Resolved: 0 06-08-2018 Chronic Other acquired deformities (2 sources) Scoliosis of lumbar spine; Translations: [Scoliosis, unspecified] 09-17-2024 Chronic Other acquired deformities (2 sources) Lumbar spondylolisthesis; Translations: [Spondylolisthesis, lumbar region] 09-17-2024 Episodic Other aftercare (6 sources) Long-term current use of anticoagulant; Translations: [pathology transcriptionist (current) use of anticoagulants] 12-19-2023 Episodic Other aftercare (1 source) Post-discharge follow-up; Translations: [Encounter for follow-up examination after completed treatment for conditions other than malignant neoplasm] 04-01-2024 Episodic Other and unspecified benign neoplasm (6 sources) [...] limb, including hip Onset: 1 Episodic Other circulatory disease (6 sources) Elevated blood pressure; Translations: [Elevated blood-pressure reading, without diagnosis of hypertension] 09-04-2016 Episodic Other connective tissue disease (1 source) History of total hip arthroplasty; Translations: [Presence of right artificial hip joint] Chronic Other connective tissue disease (3 sources) Swelling of right lower limb; Translations: [Other specified soft tissue disorders] 10-30-2023 Episodic Other connective tissue disease (4 sources) Pain of right lower leg; Translations: [Pain in right lower leg] 01-19-2024 Episodic Other connective tissue disease (2 sources) Synovial cyst of lumbar spine; Translations: [Other bursal cyst, other site] 09-17-2024 Episodic Other connective tissue disease (4 sources) Pain of left hand; Translations: [Pain in left hand] 10-08-2024 Episodic Other connective tissue disease (1 source) Pain in left hand; Translations: [Left hand pain] Onset: 5 Episodic Other diseases of bladder and urethra (20 sources) Bladder neck obstruction; Translations: [Bladder-neck obstruction] Onset: 7 06-01-2006 Chronic Other diseases of kidney and ureters (20 sources) Renal mass; Translations: [Other specified disorders of kidney and ureter] Onset: 3 02-04-2013 Chronic Other diseases of kidney and ureters (4 sources) Renal impairment; Translations: [Disorder of kidney and ureter, unspecified] 03-26-2024 Episodic Other ear and sense organ disorders (1 source) Acute otitis externa of right ear; Translations: [Unspecified acute noninfective otitis externa, right ear] Episodic Other gastrointestinal disorders (1 source) Encounter for fitting and adjustment of other gastrointestinal appliance and device; Translations: [Encounter for fitting and adjustment of other gastrointestinal appliance and device] Onset: 5 Episodic Other hereditary and degenerative nervous system conditions (20 sources) Intention tremor; Translations: [Other specified forms of tremor] Onset: 3 05-07-2012 Chronic Other injuries and conditions due to external causes (1 source) At high risk for fall; Translations: [History of falling] Episodic Other liver diseases (5 sources) Elevated liver enzymes level; Translations: [Abnormal levels of other serum enzymes] 04-05-2024 Episodic Other nervous system disorders (20 sources) Bilateral carpal tunnel syndrome; Translations: [Carpal tunnel syndrome, bilateral upper limbs] Onset: 0 11-20-2019 Chronic Other nervous system disorders (2 sources) Unsteady when walking; Translations: [Unsteadiness on feet] 11-01-2023 Episodic Other nervous system disorders (2 sources) Impairment of balance; Translations: [Other abnormalities of gait and mobility] 09-17-2024 Episodic Other non-epithelial cancer of skin (12 sources) Personal history of other malignant neoplasm of skin Onset: 9 Episodic Other non-traumatic joint disorders (4 sources) Pain of left wrist; Translations: [Pain in left wrist] 10-08-2024 Episodic Other non-traumatic joint disorders (1 source) Pain in left wrist; Translations: [Left wrist pain] Onset: 5 Episodic Other nutritional; endocrine; and metabolic disorders [...] Chronic Other nutritional; endocrine; and metabolic disorders (3 sources) Body mass index 30+ - obesity; Translations: [Body mass index (BMI) 38.0-38.9, adult] 12-19-2023 Chronic Other nutritional; endocrine; and metabolic disorders (1 source) Body mass index (BMI) 38.0-38.9, adult; Translations: [BMI 38.0-38.9,adult] Onset: 4 Chronic Other screening for suspected conditions (not [...] Other seborrheic keratosis Onset: 6 Episodic Other skin disorders (1 source) Eruption; Translations: [Rash and other nonspecific skin eruption] 10-09-2023 Episodic Other skin disorders (2 sources) Xerosis cutis; Translations: [Xerosis cutis] Onset: 4 Episodic Other skin disorders (2 sources) Other specified epidermal thickening; Translations: [Other specified epidermal thickening] Onset: 4 Episodic Other upper respiratory infections (1 source) Acute upper respiratory infection; Translations: [Acute upper respiratory infection, unspecified] Episodic Pancreatic disorders (not diabetes) (20 sources) Mass of pancreas; Translations: [Other specified diseases of pancreas] Onset: 5 05-12-2014 Episodic Pulmonary heart disease (20 sources) Saddle embolus of pulmonary artery; Translations: [Saddle embolus of pulmonary artery without acute cor pulmonale] Onset: 4 10-26-2023 Chronic Pulmonary heart disease (12 sources) H/O: pulmonary embolus; Translations: [Personal history of pulmonary embolism] Onset: 4 11-09-2023 Episodic Comment on above: Placed on Eliquis. Residual codes; unclassified (20 sources) Obstructive sleep apnea syndrome; Translations: [Obstructive sleep apnea (adult) (pediatric)] Onset: 7 02-05-2021 Chronic Residual codes; unclassified (2 sources) Obstructive sleep apnea (adult) (pediatric); Translations: [MARTIN (obstructive sleep apnea)] Onset: 2 Chronic Residual codes; unclassified (1 source) Edema of lower extremity; Translations: [Localized edema] 12-19-2023 Episodic Residual codes; unclassified (1 source) Pain; Translations: [Pain, unspecified] 01-18-2024 Episodic Thyroid disorders (20 sources) Hypothyroidism; Translations: [Hypothyroidism, unspecified] Onset: 9 04-30-2015 Chronic Unclassified (3 sources) Verruca Onset: 1 Unclassified (3 sources) Angioma Onset: 1 Unclassified (3 sources) Chronic solar damage Onset: 1 Unclassified (3 sources) Seborrheic Keratosis Onset: 1 Unclassified (3 sources) Lentigines Onset: 1 Unclassified (1 source) Obesity, Class III, BMI 40-49.9 (morbid obesity); Translations: [Obesity, Class III, BMI 40-49.9 (morbid obesity)] Onset: 3 Unclassified (1 source) Low back pain, unspecified; Translations: [Low back pain, unspecified] Onset: 5 Past or Other Problems Problem Classification Problem Date Documented Da te Episodic/Chronic Calculus of urinary tract (20 sources) Kidney stone; Translations: [Calculus of kidney] Onset: 02-04-2013 Resolved: 05-09-2014 05-09-2014 Episodic Conditions associated with dizziness or vertigo (1 source) Dizziness and giddiness; Translations: [Dizziness and giddiness] Onset: 10-27-2023 Episodic E Codes: Fall (2 sources) Fall in home; Translations: [Unspecified fall, subsequent encounter] Onset: 04-01-2024 04-01-2024 Episodic E Codes: Place of occurrence (1 source) Unspecified place in unspecified non-institutional (private) residence as the place of occurrence of the external cause; Translations: [Fall in home, subsequent encounter] Onset: 04-01-2024 Episodic Genitourinary symptoms and ill-defined conditions (20 sources) Nocturia; Translations: [Nocturia] Onset: 01-15-2013 01-15-2013 Episodic Immunizations and screening for infectious disease (4 sources) Vaccination needed; Translations: [Encounter for immunization] Onset: 02-14-2024 Episodic Joint disorders and dislocations; trauma-related (2 sources) Tear of medial meniscus of knee; Translations: [Other tear of medial meniscus, current injury, right knee, initial encounter] Onset: 01-29-2024 01-29-2024 Episodic Nausea and vomiting (10 sources) Nausea and vomiting; Translations: [Nausea with vomiting, unspecified] Onset: 04-08-2024 04-05-2024 Episodic Other aftercare (1 source) Encounter for follow-up examination after completed treatment for conditions other than malignant neoplasm; Translations: [Hospital discharge follow-up] Onset: 04-01-2024 Episodic Other aftercare (1 source) intermediate (current) use of anticoagulants; Translations: [intermediate (current) use of anticoagulants] Onset: 04-08-2024 Episodic Other and unspecified benign neoplasm (1 source) Multiple benign melanocytic nevi ; Translations: [Melanocytic nevi, unspecified] 01-15-2024 Episodic Other connective tissue disease (20 sources) Diastasis recti; Translations: [Separation of muscle (nontraumatic), other site] Onset: 10-09-2013 10-09-2013 Episodic Other connective tissue disease (20 sources) Pain in buttock; Translations: [Myalgia, other site] Onset: 02-04-2019 02-04-2019 Episodic Other connective tissue disease (20 sources) Plantar fascial fibromatosis; Translations: [Plantar fascial fibromatosis] Onset: 11-02-2006 Resolved: 05-09-2014 05-09-2014 Episodic Other connective tissue disease (2 sources) Pain in right lower leg; Translations: [Pain and swelling of right lower leg] Onset: 01-19-2024 Episodic Other connective tissue disease (3 sources) Other specified soft tissue disorders; Translations: [Pain and swelling of right lower leg] Onset: 01-19-2024 Episodic Other diseases of kidney and ureters (20 sources) Complex renal cyst; Translations: [Cyst of kidney, acquired] Onset: 02-14-2013 02-14-2013 Episodic Other diseases of veins and lymphatics (20 sources) Peripheral venous insufficiency; Translations: [Venous insufficiency (chronic) (peripheral)] Onset: 04-29-2020 04-29-2020 Episodic Other diseases of veins and lymphatics (1 source) Venous insufficiency (chronic) (peripheral); Translations: [Venous insufficiency (chronic) (peripheral)] Onset: 04-29-2020 Episodic Other injuries and conditions due to external causes (20 sources) History of fall; Translations: [History of falling] Onset: 12-08-2021 Episodic Other liver diseases (1 source) Abnormal levels of other serum enzymes; Translations: [Abnormal levels of other serum enzymes] Onset: 04-08-2024 Episodic Other lower respiratory disease (3 sources) Mass of right lower lobe of lung; Translations: [Other nonspecific abnormal finding of lung field] Onset: 02-04-2013 02-04-2013 Episodic Other lower respiratory disease (20 sources) Other nonspecific abnormal finding of lung field; Translations: [Swelling, mass, or lump in chest] Onset: 02-04-2013 02-04-2013 Episodic Other nervous system disorders (20 sources) Abnormal gait; Translations: [Unsteadiness on feet] Onset: 12-18-2023 12-18-2023 Episodic Other nervous system disorders (1 source) Unsteadiness on feet; Translations: [Unsteady gait when walking] Onset: 12-18-2023 Episodic Other non-traumatic joint disorders (20 sources) Ankle edema; Translations: [Effusion, right ankle] Onset: 02-04-2019 02-04-2019 Episodic Other non-traumatic joint disorders (6 sources) Pain in right knee; Translations: [Pain in joint, lower leg] Onset: 01-18-2024 01-18-2024 Episodic Other skin disorders (20 sources) Ingrowing nail; Translations: [Ingrowing nail] Onset: 11-26-2007 Resolved: 05-09-2014 05-09-2014 Episodic Other skin disorders (1 source) Asteatosis cutis; Translations: [Xerosis cutis] 01-15-2024 Episodic Other skin disorders (1 source) Keratosis pilaris; Translations: [Other specified epidermal thickening] 01-15-2024 Episodic Other skin disorders (1 source) Lentiginosis; Translations: [Other melanin hyperpigmentation] 01-15-2024 Episodic Other skin disorders (1 source) Seborrheic keratosis; Translations: [Other seborrheic keratosis] 01-15-2024 Episodic Phlebitis; thrombophlebitis and thromboembolism (20 sources) Acute deep venous thrombosis of right femoral vein; Translations: [Acute embolism and thrombosis of right femoral vein] Onset: 10-23-2023 10-23-2023 Episodic Residual codes; unclassified (20 sources) Bilateral lower limb edema; Translations: [Localized edema] Onset: 04-29-2020 04-29-2020 Episodic Respiratory failure; insufficiency; arrest (adult) (20 sources) Acute hypoxemic respiratory failure; Translations: [Acute respiratory failure with hypoxia] Onset: 10-23-2023 Resolved: 10-27-2023 10-23-2023 Episodic Skin and subcutaneous tissue infections (5 sources) Cellulitis of skin; Translations: [Cellulitis, unspecified] Onset: 01-22-2024 01-22-2024 Episodic Spondylosis; intervertebral disc disorders; other back problems (20 sources) Cervical radiculopathy; Translations: [Radiculopathy, cervical region] Onset: 02-08-2021 Episodic Superficial injury; contusion (2 sources) Injury of abdominal wall; Translations: [Contusion of abdominal wall, subsequent encounter] Onset: 04-01-2024 04-01-2024 Episodic Unclassified (3 sources) Onset: 02-14-2014 Unclassified (3 sources) Onset: 02-14-2014 Unclassified (3 sources) Onset: 02-14-2014 Unclassified (3 sources) Onset: 02-14-2014 Unclassified (20 sources) Open fracture of bone; Translations: [Open fracture of distal phalangeal tuft] Onset: 08-31-2011 Resolved: 05-09-2014 05-09-2014 Results Test Name Value Interpretation Reference Range Facility [facility] 10-08-2024 CN Office Visit ([facility]AMPWS ) -- FRAN PAREKH ([id number]) 1945 M Date Time Provider Department 10/08/24 9:40 AM MARILIA OROZCO During your visit today, we recorded the following information about you: Pulse Respiration Blood pressure Weight 58/minute 18/minute 118/76 132.9 kg Marilia Orozco APRN.SUPERVISOR [employer]T 10/08/2024 9:54 AM Signed 10/08/2024 Patient presents with: Pain: Left wrist pain, fell about a month ago and caught himself with his hands. Recording using [employer] software for draft documentation of the visit was discussed with the patient/authorized exhibit display representative; all questions welcomed and answered. Patient/authorized exhibit display representative agreed to proceed SUBJECTIVE: This is a 79 year old that is here today for Above Complaints.. Left Wrist Pain: - Pain onset following a fall approximately one month ago; Fran reports catching himself with his hands. - Pain localized to the dorsum of the left hand and wrist. - Describes pain as sharp and exacerbated by pressure and movement, particularly when using the left hand. - Denies significant pain at rest, but reports a persistent ache. - Denies bruising, swelling, or deformity at the time of injury. - Has been using a brace purchased from a medical supply store. - No additional pain management measures taken. - History of bilateral carpal tunnel release performed by Dr. Feng. - Previous left wrist sprain from a fall while painting in the kitchen. Hypothyroidism: - Missed recent blood work appointment scheduled for 09/28. PAST MEDICAL HISTORY Diagnosis Date Angina at rest 09/14/2016 Arthritis of hip 06/08/2018 R hip, S/P SUSAN ASHD (arteriosclerotic heart disease) 09/14/2016 Bilateral carpal tunnel syndrome Bilateral lower extremity edema 2/2 venous insufficiency BPH (benign prostatic hyperplasia) Choledocholithiasis 04/05/2024 Chronic 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 history of unprovoked PE Class 2 obesity due to excess calories with body mass index (BMI) of 38.0 to 38.9 in adult Diverticulosis of colon (without mention of hemorrhage) Essential hypertension, benign History of pulmonary embolism Hyperlipidemia LDL goal <100 09/14/2016 Hypothyroidism Intention tremor 05/07/2012 Internal derangement of right knee 05/07/2012 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 Chowdary in [place] Stage 3a chronic kidney disease (HCC) Venous insufficiency ALLERGIES Norvasc [Amlodipine Besylate], Venom-Wasp, and Zithromax [Azithromycin] MEDICATIONS Current Outpatient Medications Medication Sig apixaban (ELIQUIS) 5 mg tab(s) Take 1 tablet by mouth two times a day. atorvastatin (LIPITOR) 40 mg tablet Take 1 tablet by mouth once daily. metoprolol succinate ER (TOPROL XL) 50 mg 24 hr tablet Take 1 tablet by mouth once daily. lisinopril (ZESTRIL) 40 mg tablet Take 1 tablet by mouth once daily. levothyroxine (SYNTHROID) 125 mcg tablet TAKE 1 TABLET BY MOUTH EVERY DAY ON AN EMPTY STOMACH FOR THYROID hydroCHLOROthiazide 25 mg tablet Take 1 tablet by mouth once daily. tiZANidine (ZANAFLEX) 2 mg tablet Take 1 tablet by mouth every 6 hours as needed. ammonium lactate (LAC-HYDRIN) 12 % cream Apply to affected area as needed. Apply on thick skin gabapentin (NEURONTIN) 300 mg capsule Take 300 mg by mouth daily at bedtime. CPAP AutoPAP [id number]. Mask per preference, tubing, filters, humidity. [employer]. Dx: G47.33. Fax 30 day compliance report to [phone]. CPAP Please provide mask fitting. Pt with [...] Social History Tobacco Use Smoking status: Never Passive exposure: Past Smokeless tobacco: Never Vaping Use Vaping status: Never Used Substance Use Topics Alcohol use: No Drug use: No REVIEW OF SYSTEMS All other reviewed and negative other than HPI. OBJECTIVE: BP 118/76 Pulse (!) 58 Resp 18 Wt 132.9 kg (293 lb) SpO2 98% BMI 42.61 kg/m? . Vital signs reviewed by this provider. GENERAL: NAD, alert and oriented. SKIN: Unremarkable, no rash or skin lesions to exposed skin EXTREMITIES: Mild swelling noted over the radial area of the left wrist. Pain elicited with dorsiflexion, mild pain with palmar flexion, ulnar deviation, and radial deviation. Pain with making a fist. No deform (more content not included)... Normal [facility] No Panel Informationon 10-08 IMPRESSION: 1. No radiographic evidence of acute osseous injury. 2. Multifocal osteoarthritis as described. Voltage Regulator Assembler: PSCB Transcribe Date/Time: Oct 08 2024 11:26A Dictated by : FAUSTINO STOCKTON MD This examination was interpreted and the report reviewed and electronically signed by: FAUSTINO STOCKTON MD on Oct 08 2024 11:29AM [facility] DIVISION OF RADIOLOGY Radiology Study observation (narrative) [facility] No Panel InformationOrdered By: Ccf Provider on 10-08-2024 [facility] SerPl-aCncon 10-08-2024 TSH Qn 2.310 m[IU]/L Normal 0.270-4.200 [facility] Comment on above: Order Comment: Speci men Type: BLOOD SPECIMENOrdering Facility: [facility] Address: [address] [place] [address] Performed By: #### [id number] ####[facility] LABCLIA [id number] [address] [place] XR HAND 3V PA/LAT/OBL LTon 0 10-08-2024 XR HAND 3V PA/LAT/OBL LT * * *Final Report* * * DATE OF EXAM: Oct 08 2024 10:54AM [id number] - XR HAND 3V PA/LAT/OBL LT / PROCEDURE REASON: Left hand pain * * * * Physician Interpretation * * * * TITLE: XR HAND 3V PA/LAT/OBL LT, XR WRIST 3V PA/LAT/OBL LT CLINICAL INDICATION: Pain after fall approximately one month TECHNIQUE: 3 view radiographic study of the left hand and left wrist COMPARISON: Correlation made to left third finger radiograph dated 08/15/2011 FINDINGS: No acute fracture or dislocation identified. Well-corticated ossicle along the dorsal aspect of the wrist may reflect the sequela of age indeterminant trauma. Severe triscaphe joint space narrowing with subchondral sclerosis. Severe joint space narrowing between the lunate and capitate with subchondral sclerosis and subchondral cystic change. Severe osteoarthritis of the first interphalangeal joint and of the second, third and fifth distal interphalangeal joints with severe joint space narrowing and marginal osteophyte formation. Mild joint space narrowing of the fourth distal interphalangeal joint. Mild hypertrophic change at the base of the fourth proximal phalanx. IMPRESSION: 1. No radiographic evidence of acute osseous injury. 2. Multifocal osteoarthritis as described. Voltage Regulator Assembler: WILNER Transcribe Date/Time: Oct 08 2024 11:26A Dictated by : FAUSTINO STOCKTON MD This examination was interpreted and the report reviewed and electronically signed by: FAUSTINO STOCKTON MD on Oct 08 2024 11:29AM EST [id number] Normal [facility] XR Hand - left PA and Latera l and Obliqueon 10-08-2024 * * *Final Report* * * DATE OF EXAM: Oct 08 2024 10:54AM [id number] - XR HAND 3V PA/LAT/OBL LT / PROCEDURE REASON: Left hand pain * * * * Physician Interpretation * * * * TITLE: XR HAND 3V PA/LAT/OBL LT, XR WRIST 3V PA/LAT/OBL LT CLINICAL INDICATION: Pain after fall approximately one month TECHNIQUE: 3 view radiographic study of the left hand and left wrist COMPARISON: Correlation made to left third finger radiograph dated 08/15/2011 FINDINGS: No acute fracture or dislocation identified. Well-corticated ossicle along the dorsal aspect of the wrist may reflect the sequela of age indeterminant trauma. Severe triscaphe joint space narrowing with subchondral sclerosis. Severe joint space narrowing between the lunate and capitate with subchondral sclerosis and subchondral cystic change. Severe osteoarthritis of the first interphalangeal joint and of the second, third and fifth distal interphalangeal joints with severe joint space narrowing and marginal osteophyte formation. Mild joint space narrowing of the fourth distal interphalangeal joint. Mild hypertrophic change at the base of the fourth proximal phalanx. DIVISION OF RADIOLOGY Provider, [facility] - 10/08/2024 * * *Final Report* * * DATE OF EXAM: Oct 08 2024 10:54AM WOX 5345 - XR HAND 3V PA/LAT/OBL LT / PROCEDURE REASON: Left hand pain * * * * Physician Interpretation * * * * TITLE: XR HAND 3V PA/LAT/OBL LT, XR WRIST 3V PA/LAT/OBL LT CLINICAL INDICATION: Pain after fall approximately one month TECHNIQUE: 3 view radiographic study of the left hand and left wrist COMPARISON: Correlation made to left third finger radiograph dated 08/15/2011 FINDINGS: No acute fracture or dislocation identified. Well-corticated ossicle along the dorsal aspect of the wrist may reflect the sequela of age indeterminant trauma. Severe triscaphe joint space narrowing with subchondral sclerosis. Severe joint space narrowing between the lunate and capitate with subchondral sclerosis and subchondral cystic change. Severe osteoarthritis of the first interphalangeal joint and of the second, third and fifth distal interphalangeal joints with severe joint space narrowing and marginal osteophyte formation. Mild joint space narrowing of the fourth distal interphalangeal joint. Mild hypertrophic change at the base of the fourth proximal phalanx. IMPRESSION IMPRESSION: 1. No radiographic evidence of acute osseous injury. 2. Multifocal osteoarthritis as described. Voltage Regulator Assembler: WILNER Transcribe Date/Time: Oct 08 2024 11:26A Dictated by : FAUSTINO STOCKTON MD This examination was interpreted and the report reviewed and electronically signed by: FAUSTINO STOCKTON MD on Oct 08 2024 11:29AM EST [facility] XR WRIST 3V PA/LAT/OBL LTon 10-08-2024 XR WRIST 3V PA/LAT/OBL LT * * *Final Report* * * DATE OF EXAM: Oct 08 2024 10:54AM WOX 5270 - XR WRIST 3V PA/LAT/OBL LT / PROCEDURE REASON: Left wrist pain * * * * Physician Interpretation * * * * TITLE: XR HAND 3V PA/LAT/OBL LT, XR WRIST 3V PA/LAT/OBL LT CLINICAL INDICATION: Pain after fall approximately one month TECHNIQUE: 3 view radiographic study of the left hand and left wrist COMPARISON: Correlation made to left third finger radiograph dated 08/15/2011 FINDINGS: No acute fracture or dislocation identified. Well-corticated ossicle along the dorsal aspect of the wrist may reflect the sequela of age indeterminant trauma. Severe triscaphe joint space narrowing with subchondral sclerosis. Severe joint space narrowing between the lunate and capitate with subchondral sclerosis and subchondral cystic change. Severe osteoarthritis of the first interphalangeal joint and of the second, third and fifth distal interphalangeal joints with severe joint space narrowing and marginal osteophyte formation. Mild joint space narrowing of the fourth distal interphalangeal joint. Mild hypertrophic change at the base of the fourth proximal phalanx. IMPRESSION: 1. No radiographic evidence of acute osseous injury. 2. Multifocal osteoarthritis as described. Voltage Regulator Assembler: WILNER Transcribe Date/Time: Oct 08 2024 11:26A Dictated by : FAUSTINO STOCKTON MD This examination was interpreted and the report reviewed and electronically signed by: FAUSTINO STOCKTON MD on Oct 08 2024 11:29AM EST [id number] Normal [facility] XR Wrist - left PA and Later al and Obliqueon 10-08-2024 * * *Final Report* * * DATE OF EXAM: Oct 08 2024 10:54AM WOX 5270 - XR WRIST 3V PA/LAT/OBL LT / PROCEDURE REASON: Left wrist pain * * * * Physician Interpretation * * * * TITLE: XR HAND 3V PA/LAT/OBL LT, XR WRIST 3V PA/LAT/OBL LT CLINICAL INDICATION: Pain after fall approximately one month TECHNIQUE: 3 view radiographic study of the left hand and left wrist COMPARISON: Correlation made to left third finger radiograph dated 08/15/2011 FINDINGS: No acute fracture or dislocation identified. Well-corticated ossicle along the dorsal aspect of the wrist may reflect the sequela of age indeterminant trauma. Severe triscaphe joint space narrowing with subchondral sclerosis. Severe joint space narrowing between the lunate and capitate with subchondral sclerosis and subchondral cystic change. Severe osteoarthritis of the first interphalangeal joint and of the second, third and fifth distal interphalangeal joints with severe joint space narrowing and marginal osteophyte formation. Mild joint space narrowing of the fourth distal interphalangeal joint. Mild hypertrophic change at the base of the fourth proximal phalanx. DIVISION OF RADIOLOGY Provider, [facility] - 10/08/2024 * * *Final Report* * * DATE OF EXAM: Oct 08 2024 10:54AM WOX 5270 - XR WRIST 3V PA/LAT/OBL LT / PROCEDURE REASON: Left wrist pain * * * * Physician Interpretation * * * * TITLE: XR HAND 3V PA/LAT/OBL LT, XR WRIST 3V PA/LAT/OBL LT CLINICAL INDICATION: Pain after fall approximately one month TECHNIQUE: 3 view radiographic study of the left hand and left wrist COMPARISON: Correlation made to left third finger radiograph dated 08/15/2011 FINDINGS: No acute fracture or dislocation identified. Well-corticated ossicle along the dorsal aspect of the wrist may reflect the sequela of age indeterminant trauma. Severe triscaphe joint space narrowing with subchondral sclerosis. Severe joint space narrowing between the lunate and capitate with subchondral sclerosis and subchondral cystic change. Severe osteoarthritis of the first interphalangeal joint and of the second, third and fifth distal interphalangeal joints with severe joint space narrowing and marginal osteophyte formation. Mild joint space narrowing of the fourth distal interphalangeal joint. Mild hypertrophic change at the base of the fourth proximal phalanx. IMPRESSION IMPRESSION: 1. No radiographic evidence of acute osseous injury. 2. Multifocal osteoarthritis as described. Voltage Regulator Assembler: WILNER Transcribe Date/Time: Oct 08 2024 11:26A Dictated by : FAUSTINO STOCKTON MD This examination was interpreted and the report reviewed and electronically signed by: FAUSTINO STOCKTON MD on Oct 08 2024 11:29AM EST [facility] ERCP Biliary/Pancreason 06-0 -2024 ERCP Biliary/Pancreas Normal [facility] ERCP Reporton 10-07-2024 ERCP Report Normal [facility] MR/POSTOP.ANEon 10-07-2024 MR/POSTOP.ANE Normal [facility] MR/[id number] 10-07-2024 MR/POSTOPAN2 Normal [facility] O.R. Fluoro for C-Dylon 06-0 O.R. Fluoro for C-Arm Normal [facility] Surgery Specimen Level Marcela 10-07-2024 Surgery Specimen Level IV Normal [facility] Comment on above: Performed By: #### P SUIV ####[facility] [id number] [place], [place], [address] [facility] 09-17-2024 [facility] Telephone ([employer]) -- FRAN PAREKH ([id number]) 1945 M Date Time Provider Department 09/17/24 AGNES DIAZ [facility] During your visit today, we recorded the following information about you: Agustín Monroy, CHAD 09/17/2024 11:34 AM Signed Jeny with [facility] calls to request a copy of patient's most recent HGBA1C. Faxed results from 08/15/2024 to [phone] per request. CHAD English Stephanie, RN 09/17/2024 11:43 AM Signed Jeny with [facility] calls to request a copy of patient's most recent office visit notes. Faxed results from 08/15/2024 to [phone] per request. Carli Bowen RN Allergies As of Date: 09/17/2024 Noted Allergy Reaction NORVASC (AMLODIPINE BESYLATE) 09/14/2016 7 - Swelling Comments: pedal edema VENOM-WASP 01/14/2005 7 - Swelling ZITHROMAX (AZITHROMYCIN) 01/14/2005 9 - Itching Date Reviewed: 08/13/2024 Reviewed by: Eunice Bruce LPN - Fully Assessed Prescriptions as of 09/17/2024 - atorvastatin (LIPITOR) 40 mg tablet Take 1 tablet by mouth once daily. - metoprolol succinate ER (TOPROL XL) 50 mg 24 hr tablet Take 1 tablet by mouth once daily. - lisinopril (ZESTRIL) 40 mg tablet Take 1 tablet by mouth once daily. - apixaban (ELIQUIS) 5 mg tab(s) Take 1 tablet by mouth two times a day. - levothyroxine (SYNTHROID) 125 mcg tablet TAKE 1 TABLET BY MOUTH EVERY DAY ON AN EMPTY STOMACH FOR THYROID - hydroCHLOROthiazide 25 mg tablet Take 1 tablet by mouth once daily. - tiZANidine (ZANAFLEX) 2 mg tablet Take 1 tablet by mouth every 6 hours as needed. - ammonium lactate (LAC-HYDRIN) 12 % cream Apply to affected area as needed. Apply on thick skin - gabapentin (NEURONTIN) 300 mg capsule Take 300 mg by mouth daily at bedtime. - CPAP AutoPAP [id number]. Mask per preference, tubing, filters, humidity. [employer] Supplies. Dx: G47.33. Fax 30 day compliance report to [phone]. - CPAP Please provide mask fitting. Pt [...] tablet daily. Problem List As Of Date 09/17/2024 Noted Resolved Primary hypertension [I10] 03/11/2005 Hypertrophy of prostate with urinary obstructio*06/01/2006 BLADDER NECK OBSTRUCTION [N32.0] 06/01/2006 Plantar fascial fibromatosis [M72.2] 11/02/2006 05/09/2014 Ingrowing nail [L60.0] 11/26/2007 05/09/2014 Hypothyroidism [E03.9] 03/25/2009 Open fracture of distal phalangeal tuft [[id number]*08/31/2011 05/09/2014 Internal derangement of right knee [M23.91] [...] ASHD (arteriosclerotic heart disease) [I25.10] 09/14/2016 Hyperlipidemia [E78.5] 09/14/2016 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] 06/08/2018 Right buttock pain [M79.18] 02/04/2019 Ankle edema, bilateral [M25.471, M25.472] 02/04/2019 Class 2 obesity due to excess calories with bod*05/13/2019 Pre-operative examination [Z01.818] 05/13/2019 Primary osteoarthritis of right hip [M16.11] 05/13/2019 Osteoarthritis of right hip [M16.11] 06/03/2019 06/06/2019 Carpal tunnel syndrome, bilateral [G56.03] 11/20/2019 Stage 3a chronic kidney disease [N18.31] 04/29/2020 Obesity, Class II, BMI 35-39.9 [E66.812] 04/29/2020 Bilateral leg edema [R60.0] 04/29/2020 Venous insufficiency (chronic) (peripheral) [I8*04/29/2020 Cervical radiculopathy [M54.12] 02/08/2021 Chronic low back pain with bilateral sciatica [*12/08/2021 Personal history of fall [Z91.81] 12/08/2021 Age-related physical debility [R54] 12/08/2021 Obesity, Class III, BMI 40-49.9 (morbid obesity*11/02/2022 Chronic bilateral low back pain with bilateral *11/29/2022 Stage 3b chronic kidney disease (HCC) [N18.32] 05/15/2023 Acute saddle pulmonary embolism without acute c*10/23/2023 Acute deep vein thrombosis (DVT) of femoral vei*10/23/2023 Acute hypoxemic respiratory failure (HCC) [J96.*10/23/2023 10/27/2023 RVF (right ventricular failure) (HCC) [I50.810] 10/24/2023 Pulmonary HTN (HCC) [I27.20] 10/25/2023 Unsteady gait [R26.81] 12/18/2023 Encounter Status:Closed by AGUSTÍN MONROY on 09/17/24 Normal [facility] L/S Spine Min 4 Viewson 08-30 L/S Spine Min 4 Views Normal [facility] Orthopedic Visit Reporton Orthopedic Visit Report Normal [facility] Abdomen/Pelvis W IV Cont ONL Yon 08-31-2024 Abdomen/Pelvis W IV Cont ONLY Normal [facility] Absolute lymphocyte countOrd ered By: Isaias Trivedi on 08-31-2024 Lymphocytes Auto (Unsp spec) [#/Vol] 2.13 10*3/uL 0.83-4.51 [facility] Absolute neutrophil countOrd ered By: Isaias Trivedi on 08-31-2024 Neutrophils (Bld) [#/Vol] 9.2 10*3/uL High 2.0-7.7 [facility] Anion gap in Serum or Plasma Ordered By: Isaias Trivedi on 08-31-2024 Anion gap [Moles/Vol] 12 mmol/L 5-15 [facility] Automated lymphocyte count a s percentage of total leukocytesOrdered By: Isaias Trivedi on 08-31-2024 Lymphocytes/100 WBC Auto (Unsp spec) 17.0 % Low 19-41 [facility] BUN/creatinine ratioOrdered By: Isaias Trivedi on 08-31-2024 Urea nitrogen/Creatinine [Mass ratio] 14.0 mg/mg 10-20 [facility] Basophil percentageOrdered B y: Isaias Trivedi on 08-31-2024 Basophils/100 WBC (Bld) 0.5 % 0-1 [facility] Bilirubin Test strip Ql (U)O rdered By: Isaias Trivedi on 08-31-2024 Bilirubin Ql (U) Negative Negative [facility] Bilirubin, totalOrdered By: Isaias Trivedi on 08-31-2024 Bilirubin [Mass/Vol] 0.80 mg/dL 0.00-1.30 [facility] CBC W/Diff, Automatedon Absolute Lymph 2.13 X10 3/uL Normal 0.83-4.51 [facility] Comment on above: Performed By: #### L 500.4050, L100.0100 ####[facility] [address] [place], [address] Absolute Neut 9.2 X10 3/uL High 2.0-7.7 [facility] Comment on above: Performed By: #### L 500.4050, L100.0100 ####[facility] [address] [place], [address] Basophils/100 WBC (Bld) 0.5 % Normal 0-1 [facility] Comment on above: Performed By: #### L 500.4050, L100.0100 ####[facility] [address] [place], [address] Eosinophils/100 WBC (Bld) 1.3 % Normal 0-5 [facility] Comment on above: Performed By: #### L 500.4050, L100.0100 ####[facility] [address] [place], [address] Erythrocyte distribution width (RBC) [Ratio] 13.3 % Normal 11.6-14.6 [facility] Comment on above: Performed By: #### L 500.4050, L100.0100 ####[facility] [address] [place], [address] Hematocrit (Bld) [Volume fraction] 46.1 % Normal 40-54 [facility] Comment on above: Performed By: #### L 500.4050, L100.0100 ####[facility] [address] [place], [address] Hemoglobin (Bld) [Mass/Vol] 15.9 g/dL Normal 13.0-16.5 [facility] Comment on above: Performed By: #### L 500.4050, L100.0100 ####[facility] [address] [place], [address] IG% 0.400 Normal 0.0-0.9 [facility] Comment on above: Result Comment: IG% - Immature Granulocytes (promyelocytes, myelocytes andmetamyelocytes) > 1% indicates that a LEFT SHIFT is Present. Performed By: #### L 500.4050, L100.0100 ####[facility] [address] [place], [address] Lymphocytes/100 WBC (Bld) 17.0 % Low 19-41 [facility] Comment on above: Performed By: #### L 500.4050, L100.0100 ####[facility] [address] [place], [address] MCH (RBC) [Entitic mass] 32.1 pg High 27.0-32.0 [facility] Comment on above: Performed By: #### L 500.4050, L100.0100 ####[facility] [address] [place], [address] MCHC (RBC) [Mass/Vol] 34.5 g/dL Normal 32-36 [facility] Comment on above: Performed By: #### L 500.4050, L100.0100 ####[facility] [address] [place], [address] MCV (RBC) [Entitic vol] 92.9 fL Normal 80-94 [facility] Comment on above: Performed By: #### L 500.4050, L100.0100 ####[facility] [address] [place], [address] Monocytes/100 WBC (Bld) 7.5 % Normal 0-10 [facility] Comment on above: Performed By: #### L 500.4050, L100.0100 ####[facility] [address] [place], [address] Neutrophils/100 WBC (Bld) 73.3 % High 47-70 [facility] Comment on above: Performed By: #### L 500.4050, L100.0100 ####[facility] [address] [place], [address] Nucleated RBC (Bld) [#/Vol] 0 10*3/uL Normal 0-5 [facility] Comment on above: Performed By: #### L 500.4050, L100.0100 ####[facility] [address] [place], [address] Platelet mean volume (Bld) [Entitic vol] 9.5 fL Normal 6.2-12.0 [facility] Comment on above: Performed By: #### L 500.4050, L100.0100 ####[facility] [address] [place], [address] Platelets (Bld) [#/Vol] 225 10*3/uL Normal 150-450 [facility] Comment on above: Performed By: #### L 500.4050, L100.0100 ####[facility] [address] [place], [address] RBC (Bld) [#/Vol] 4.96 10*6/uL Normal 4.6-6.2 [facility] Comment on above: Performed By: #### L 500.4050, L100.0100 ####[facility] [address] [place], [address] RDW SD 45.3 fl High 35.1-43.9 [facility] Comment on above: Performed By: #### L 500.4050, L100.0100 ####[facility] [address] [place], [address] WBC (Bld) [#/Vol] 12.6 10*3/uL High 4.4-11.0 [facility] Comment on above: Performed By: #### L 500.4050, L100.0100 ####[facility] [address] [place], [address] CNOVon 08-31-2024 CNOV Office Visit (UCTR ) -- FRAN PAREKH ([id number]) 1945 M Date Time Provider Department 08/31/24 11:00 AM COLE ALMANZA [facility] During your visit today, we recorded the following information about you: Cole Almanza MD 08/31/2024 11:11 AM Signed [facility] Care Triage Note: Patient presents to the [facility] care with complaint of abdominal pain for the last day. He is also experiencing current sciatic pain and taking [place]. He has been unable to take pain medicine today because of upset stomach and wants to avoid further aggravating abdominal pain. He is concerned he may have constipation but also has history of diverticulitis. He is in apparent discomfort in the waiting room. He was offered the opportunity to have initial evaluation here in the [facility] with likely referral where imaging is available. He chooses to go to the ED for evaluation instead. He declines EMS transfer. Allergies As of Date: 08/31/2024 Noted Allergy Reaction NORVASC (AMLODIPINE BESYLATE) 09/14/2016 7 - Swelling Comments: pedal edema VENOM-WASP 01/14/2005 7 - Swelling ZITHROMAX (AZITHROMYCIN) 01/14/2005 9 - Itching Date Reviewed: 08/13/2024 Reviewed by: Eunice Bruce LPN - Fully Assessed Reason for Visit: Abdominal Pain [1] Primary Visit Diagnosis:Abdominal pain, unspecified abdominal location [R10.9] Prescriptions as of 08/31/2024 - atorvastatin (LIPITOR) 40 mg tablet Take 1 tablet by mouth once daily. - metoprolol succinate ER (TOPROL XL) 50 mg 24 hr tablet Take 1 tablet by mouth once daily. - lisinopril (ZESTRIL) 40 mg tablet Take 1 tablet by mouth once daily. - apixaban (ELIQUIS) 5 mg tab(s) Take 1 tablet by mouth two times a day. - levothyroxine (SYNTHROID) 125 mcg tablet TAKE 1 TABLET BY MOUTH EVERY DAY ON AN EMPTY STOMACH FOR THYROID - hydroCHLOROthiazide 25 mg tablet Take 1 tablet by mouth once daily. - tiZANidine (ZANAFLEX) 2 mg tablet Take 1 tablet by mouth every 6 hours as needed. - ammonium lactate (LAC-HYDRIN) 12 % cream Apply to affected area as needed. Apply on thick skin - gabapentin (NEURONTIN) 300 mg capsule Take 300 mg by mouth daily at bedtime. - CPAP AutoPAP [id number]. Mask per preference, tubing, filters, humidity. [employer] Supplies. Dx: G47.33. Fax 30 day compliance report to [phone]. - CPAP Please provide mask fitting. Pt [...] tablet daily. Problem List As Of Date 08/31/2024 Noted Resolved Primary hypertension [I10] 03/11/2005 Hypertrophy of prostate with urinary obstructio*06/01/2006 BLADDER NECK OBSTRUCTION [N32.0] 06/01/2006 Plantar fascial fibromatosis [M72.2] 11/02/2006 05/09/2014 Ingrowing nail [L60.0] 11/26/2007 05/09/2014 Hypothyroidism [E03.9] 03/25/2009 Open fracture of distal phalangeal tuft [[id number]*08/31/2011 05/09/2014 Internal derangement of right knee [M23.91] [...] ASHD (arteriosclerotic heart disease) [I25.10] 09/14/2016 Hyperlipidemia [E78.5] 09/14/2016 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] 06/08/2018 Right buttock pain [M79.18] 02/04/2019 Ankle edema, bilateral [M25.471, M25.472] 02/04/2019 Class 2 obesity due to excess calories with bod*05/13/2019 Pre-operative examination [Z01.818] 05/13/2019 Primary osteoarthritis of right hip [M16.11] 05/13/2019 Osteoarthritis of right hip [M16.11] 06/03/2019 06/06/2019 Carpal tunnel syndrome, bilateral [G56.03] 11/20/2019 Stage 3a chronic kidney disease [N18.31] 04/29/2020 Obesity, Class II, BMI 35-39.9 [E66.812] 04/29/2020 Bilateral leg edema [R60.0] 04/29/2020 Venous insufficiency (chronic) (peripheral) [I8*04/29/2020 Cervical radiculopathy [M54.12] 02/08/2021 Chronic low back pain with bilateral sciatica [*12/08/2021 Personal history of fall [Z91.81] 12/08/2021 Age-related physical debility [R54] 12/08/2021 Obesity, Class III, BMI 40-49.9 (morbid obesity*11/02/2022 Chronic bilateral low back pain with bilateral *11/29/2022 Stage 3b chronic kidney disease (HCC) [N18.32] 05/15/2023 Acute saddle pulmonary embolism without acute c*10/23/2023 Acute deep vein thrombosis (DVT) of femoral vei*10/23/2023 Acute (more content not included)... Normal [facility] Carbon dioxide, total [Moles /volume] in Central venous bloodOrdered By: Isaias Trivedi on 08-31-2024 CO2 [Moles/Vol] 23.3 mmol/L 21.0-32.0 [facility] Chloride assayOrdered By: Alexis Trivedi on 08-31-2024 Chloride [Moles/Vol] 104 mmol/L 98-108 [facility] Comprehensive Metabolic Prof ilon 08-31-2024 Albumin [Mass/Vol] 4.0 g/dL Normal 3.4-4.8 [facility] Comment on above: Performed By: #### L 500.4050, L100.0100 ####[facility] [address] [place], [place], [id number] Albumin/Globulin [Mass ratio] 1.3 {ratio} Normal 0.9-2.4 [facility] Comment on above: Performed By: #### L 500.4050, L100.0100 ####[facility] [address] [place], [address] ALK PHOS 86 U/L Normal 40-129 [facility] Comment on above: Performed By: #### L 500.4050, L100.0100 ####[facility] [address] [place], [address] ALT [Catalytic activity/Vol] 20 U/L Normal <=46 [facility] Comment on above: Performed By: #### L 500.4050, L100.0100 ####[facility] [address] [place], [address] AST [Catalytic activity/Vol] 31 U/L Normal <=37 [facility] Comment on above: Result Comment: Hemo lysis present, Results??could be affected.?? Performed By: #### L 500.4050, L100.0100 ####[facility] [address] [place], [address] Bilirubin [Mass/Vol] 0.80 mg/dL Normal 0.00-1.30 [facility] Comment on above: Performed By: #### L 500.4050, L100.0100 ####[facility] [address] [place], [address] BUN/CRE 14.0 RATIO Normal 10-20 [facility] Comment on above: Performed By: #### L 500.4050, L100.0100 ####[facility] [address] [place], [address] Calcium [Mass/Vol] 9.5 mg/dL Normal 7.6-11.0 [facility] Comment on above: Performed By: #### L 500.4050, L100.0100 ####[facility] [address] [place], [address] Chloride [Moles/Vol] 104 mmol/L Normal 98-108 [facility] Comment on above: Performed By: #### L 500.4050, L100.0100 ####[facility] [address] [place], [address] CO2 [Moles/Vol] 23.3 mmol/L Normal 21.0-32.0 [facility] Comment on above: Performed By: #### L 500.4050, L100.0100 ####[facility] [address] [place], [address] Creatinine [Mass/Vol] 1.46 mg/dL High 0.70-1.20 [facility] Comment on above: Performed By: #### L 500.4050, L100.0100 ####[facility] [address] [place], [address] ECRCL 57.03 ml/min Normal 50-250 [facility] Comment on above: Performed By: #### L 500.4050, L100.0100 ####[facility] [address] [place], [address] GAP 12 Normal 5-15 [facility] Comment on above: Performed By: #### L 500.4050, L100.0100 ####[facility] [address] [place], [address] GFR/1.73 sq M.predicted among non-blacks MDRD (S/P/Bld) [Vol rate/Area] 49 mL/min/{1.73_m2} Low >60 [facility] Comment on above: Result Comment: mL/m in/1.73m2 CKD-EPI Creatinine Equation (2020) Performed By: #### L 500.4050, L100.0100 ####[facility] [address] [place], [address] Globulin (S) [Mass/Vol] 3.2 g/dL Normal 2.2-4.2 [facility] Comment on above: Performed By: #### L 500.4050, L100.0100 ####[facility] [address] [place], [address] Glucose [Mass/Vol] 135 mg/dL High 70-99 [facility] Comment on above: Performed By: #### L 500.4050, L100.0100 ####[facility] [address] [place], [address] Potassium [Moles/Vol] 5.0 mmol/L Normal 3.3-5.1 [facility] Comment on above: Result Comment: Hemo lysis present, Results??could be affected.?? Performed By: #### L 500.4050, L100.0100 ####[facility] [address] [place], [address] Sodium [Moles/Vol] 139 mmol/L Normal 133-145 [facility] Comment on above: Performed By: #### L 500.4050, L100.0100 ####[facility] [address] [place], [address] T PROT 7.2 g/dL Normal 5.9-8.4 [facility] Comment on above: Performed By: #### L 500.4050, L100.0100 ####[facility] [address] [place], [address] Urea nitrogen [Mass/Vol] 21 mg/dL High 4-19 [facility] Comment on above: Performed By: #### L 500.4050, L100.0100 ####[facility] [address] [place], [address] Emergency Department Summary on 08-31-2024 Emergency Department Summary Normal [facility] Eosinophil percentageOrdered By: Isaias Trivedi on 08-31-2024 Eosinophils/100 WBC (Bld) 1.3 % 0-5 [facility] Erythrocyte distribution wid th ratioOrdered By: Isaias Trivedi on 08-31-2024 Erythrocyte distribution width (RBC) [Ratio] 13.3 % 11.6-14.6 [facility] Erythrocyte distribution wid th standard deviationOrdered By: Isaias Trivedi on 08-31-2024 Erythrocyte distribution width (RBC) [Ratio] 45.3 fl High 35.1-43.9 [facility] Glomerular filtration rate ( GFR) estimation/1.73 sq m using serum, plasma, or whole bOrdered By: Isaias Trivedi on 08-31-2024 GFR/1.73 sq M.predicted among non-blacks MDRD (S/P/Bld) [Vol rate/Area] 49 mL/min/{1.73_m2} Low >60 [facility] Comment on above: mL/min/1.73m2 CKD-EP I Creatinine Equation (2020) Hematocrit Auto (Bld) [Volum e fraction]Ordered By: Isaias Trivedi on 08-31-2024 Hematocrit (Bld) [Volume fraction] 46.1 % 40-54 [facility] Hemoglobin measurementOrdere d By: Isaias Trivedi on 08-31-2024 Hemoglobin (Bld) [Mass/Vol] 15.9 g/dL 13.0-16.5 [facility] Immature granulocytes/100 WB C Auto (Bld)Ordered By: Isaias Trivedi on 08-31-2024 Immature granulocytes/100 WBC (Bld) 0.400 % 0.0-0.9 [facility] Comment on above: IG% - Immature Granu locytes (promyelocytes, myelocytes and metamyelocytes) > 1% indicates that a LEFT SHIFT is Present. Ketones Test strip Ql (U)Ord ered By: Isaias Trivedi on 08-31-2024 Ketones Ql (U) Negative Negative [facility] Laboratory - Chemistry and C hemistry - challengeOrdered By: Isaias Trivedi on 08-31-2024 AST [Catalytic activity/Vol] 31 U/L <38 [facility] Comment on above: Hemolysis present, R esults could be affected. MCV (mean corpuscular volume ) determinationOrdered By: Isaias Trivedi on 08-31-2024 MCV (RBC) [Entitic vol] 92.9 fL 80-94 [facility] Mean corpuscular hemoglobin (MCH) determinationOrdered By: Isaias Trivedi on 08-31-2024 MCH (RBC) [Entitic mass] 32.1 pg High 27.0-32.0 [facility] Mean corpuscular hemoglobin concentration (MCHC) determinationOrdered By: Isaias Trivedi on 08-31-2024 MCHC (RBC) [Mass/Vol] 34.5 g/dL 32-36 [facility] Mean platelet volume determi nationOrdered By: Isaias Trivedi on 08-31-2024 Platelet mean volume (Bld) [Entitic vol] 9.5 fL 6.2-12.0 [facility] Microscopic analysis of urin e for red blood cells (RBC)Ordered By: Isaias Trivedi on 08-31-2024 Microscopic analysis of urine for red blood cells (RBC) 0-5 SEEN /hpf 0-5 [facility] Monocyte percentageOrdered B y: Isaias Trivedi on 08-31-2024 Monocytes/100 WBC (Bld) 7.5 % 0-10 [facility] Mucus LM Ql (Urine sed)Order ed By: Isaias Trivedi on 08-31-2024 Mucus Ql (Urine sed) 0 SEEN /hpf [facility] Neutrophil percentageOrdered By: Isaias Trivedi on 08-31-2024 Neutrophils/100 WBC (Bld) 73.3 % High 47-70 [facility] Nitrite Test strip Ql (U)Ord ered By: Isaias Trivedi on 08-31-2024 Nitrite Ql (U) Negative Negative [facility] Nucleated red blood cell per centageOrdered By: Isaias Trivedi on 08-31-2024 Nucleated RBC/100 WBC (Bld) [Ratio] 0 % 0-5 [facility] Platelet countOrdered By: Alexis Trivedi on 08-31-2024 Platelets (Bld) [#/Vol] 225 10*3/uL 150-450 [facility] Potassium measurement (mass/ volume)Ordered By: Isaias Trivedi on 08-31-2024 Potassium (Unsp spec) [Mass/Vol] 5.0 mmol/L 3.3-5.1 [facility] Comment on above: Hemolysis present, R esults could be affected. Protein Test strip Ql (U)Ord ered By: Isaias Trivedi on 08-31-2024 Protein Ql (U) 30 mg/dl High Negative [facility] RBC Auto (Bld) [#/Vol]Ordere d By: Isaias Trivedi on 08-31-2024 RBC (Bld) [#/Vol] 4.96 10*6/uL 4.6-6.2 [facility] Serum creatinine measurement (mass/volume)Ordered By: Isaias Trivedi on 08-31-2024 Creatinine [Mass/Vol] 1.46 mg/dL High 0.70-1.20 [facility] Serum globulin measurementOr dered By: Isaias Trivedi on 08-31-2024 Globulin (S) [Mass/Vol] 3.2 g/dL 2.2-4.2 [facility] Serum glucose measurement (m ass/volume)Ordered By: Isaias Trivedi on 08-31-2024 Glucose [Mass/Vol] 135 mg/dL High 70-99 [facility] Serum or plasma alanine wilde otransferase (ALT) measurementOrdered By: Isaias Trivedi on 08-31-2024 ALT [Catalytic activity/Vol] 20 U/L <47 [facility] Serum or plasma albumin anson urement (mass/volume)Ordered By: Isaias Trivedi on 08-31-2024 Albumin [Mass/Vol] 4.0 g/dL 3.4-4.8 [facility] Serum or plasma albumin/glob ulin mass ratioOrdered By: Isaias Trivedi on 08-31-2024 Albumin/Globulin [Mass ratio] 1.3 {ratio} 0.9-2.4 [facility] Serum or plasma alkaline rui sphatase measurementOrdered By: Isaias Trivedi on 08-31-2024 ALP [Catalytic activity/Vol] 86 U/L 40-129 [facility] Serum or plasma calcium anson urement (mass/volume)Ordered By: Isaias Trivedi on 08-31-2024 Calcium [Mass/Vol] 9.5 mg/dL 7.6-11.0 [facility] Serum or plasma urea nitroge n measurement (mass/volume)Ordered By: Isaias Trivedi on 08-31-2024 Urea nitrogen [Mass/Vol] 21 mg/dL High 4-19 [facility] Sodium levelOrdered By: Isaias Trivedi on 08-31-2024 Sodium [Moles/Vol] 139 mmol/L 133-145 [facility] Squamous epithelial cells de tection in urine sediment by light microscopyOrdered By: Isaias Trivedi on 08-31-2024 Epithelial cells.squamous LM Ql (Urine sed) 0 SEEN /hpf 0-5 [facility] Total proteinOrdered By: Marianne Trivedi on 08-31-2024 Protein [Mass/Vol] 7.2 g/dL 5.9-8.4 [facility] Urinalysis, Completeon 08-31 RBC 0-5 SEEN Normal 0-5 [facility] Comment on above: Order Comment: KATHERINE CTOR TO SPECIFY Performed By: #### L 400.0001 ####[facility] [address] [place], [address] WBC 0-5 SEEN Normal 0-5 [facility] Comment on above: Order Comment: KATHERINE CTOR TO SPECIFY Performed By: #### L 400.0001 ####[facility] [address] [place], [address] BACTERIA 0 SEEN Normal None Seen [facility] Comment on above: Order Comment: KATHERINE CTOR TO SPECIFY Performed By: #### L 400.0001 ####[facility] [address] [place], [address] EPI,SQUAMOUS 0 SEEN Normal 0-5 [facility] Comment on above: Order Comment: KATHERINE CTOR TO SPECIFY Performed By: #### L 400.0001 ####[facility] [address] [place], [address] Mucus Ql (Urine sed) 0 SEEN Normal [facility] Comment on above: Order Comment: KATHERINE CTOR TO SPECIFY Performed By: #### L 400.0001 ####[facility] [address] [place], [address] Urine clarityOrdered By: Marianne Trivedi on 08-31-2024 Clarity (U) Clear Clear [facility] Urine color determinationOrd ered By: Isaias Trivedi on 08-31-2024 Color (U) Yellow Yellow [facility] Urine glucose detectionOrder ed By: Isaias Trivedi on 08-31-2024 Glucose Ql (U) Normal mg/dl Normal [facility] Urine leukocyte esterase det ection by dipstickOrdered By: Isaias Trivedi on 08-31-2024 Leukocyte esterase Test strip Ql (U) Negative Negative [facility] Urine pHOrdered By: Isaias hinton on 08-31-2024 pH (U) 6.5 [pH] 5.0 - 8.0 [facility] Urine sediment bacteria coun t by microscopy (number/high power field)Ordered By: Isaias Trivedi on 08-31-2024 Bacteria LM.HPF (Urine sed) [#/Area] 0 /[HPF] None Seen [facility] Urine specific gravity measu rementOrdered By: Isaias Trivedi on 08-31-2024 Specific gravity (U) [Rel density] 1.010 1.002-1.030 [facility] Urine urobilinogen measureme ntOrdered By: Isaias Trivedi on 08-31-2024 Urobilinogen Ql (U) Normal mg/dl Normal [facility] White blood cell (WBC) count Ordered By: Isaias Trivedi on 08-31-2024 WBC (Bld) [#/Vol] 12.6 10*3/uL High 4.4-11.0 [facility] White blood cell countOrdere d By: Isaias Trivedi on 08-31-2024 White blood cell count 0-5 SEEN /hpf 0-5 [facility] CNPNon 08-27-2024 [facility] FRAN PAREKH ([id number]) 1945 M Date Time Provider Department 08/27/24 [facility] During your visit today, we recorded the following information about you: Sissy Campbell LPN 08/27/2024 12:00 PM Signed Received form from [facility] regarding upcoming procedure and request to stop coumadin. Form forwarded to provider's desk for review. JOSE Rubalcava Christopher B, MD 08/27/2024 12:11 PM Signed He is on Eliquis. Ok to stop 2 days prior to procedure. Form completed. Sissy Campbell LPN 08/27/2024 12:28 PM Signed Completed form faxed back as requested. Sissy Campbell LPN Allergies As of Date: 08/27/2024 Noted Allergy Reaction NORVASC (AMLODIPINE BESYLATE) 09/14/2016 7 - Swelling Comments: pedal edema VENOM-WASP 01/14/2005 7 - Swelling ZITHROMAX (AZITHROMYCIN) 01/14/2005 9 - Itching Date Reviewed: 08/13/2024 Reviewed by: Eunice Bruce LPN - Fully Assessed Reason for Visit: medication form [Other] Cmt: Anticoagulant authorization form Prescriptions as of 08/27/2024 - atorvastatin (LIPITOR) 40 mg tablet Take 1 tablet by mouth once daily. - metoprolol succinate ER (TOPROL XL) 50 mg 24 hr tablet Take 1 tablet by mouth once daily. - lisinopril (ZESTRIL) 40 mg tablet Take 1 tablet by mouth once daily. - apixaban (ELIQUIS) 5 mg tab(s) Take 1 tablet by mouth two times a day. - levothyroxine (SYNTHROID) 125 mcg tablet TAKE 1 TABLET BY MOUTH EVERY DAY ON AN EMPTY STOMACH FOR THYROID - hydroCHLOROthiazide 25 mg tablet Take 1 tablet by mouth once daily. - tiZANidine (ZANAFLEX) 2 mg tablet Take 1 tablet by mouth every 6 hours as needed. - ammonium lactate (LAC-HYDRIN) 12 % cream Apply to affected area as needed. Apply on thick skin - gabapentin (NEURONTIN) 300 mg capsule Take 300 mg by mouth daily at bedtime. - CPAP AutoPAP [id number]. Mask per preference, tubing, filters, humidity. [employer] Supplies. Dx: G47.33. Fax 30 day compliance report to [phone]. - CPAP Please provide mask fitting. Pt [...] tablet daily. Problem List As Of Date 08/27/2024 Noted Resolved Primary hypertension [I10] 03/11/2005 Hypertrophy of prostate with urinary obstructio*06/01/2006 BLADDER NECK OBSTRUCTION [N32.0] 06/01/2006 Plantar fascial fibromatosis [M72.2] 11/02/2006 05/09/2014 Ingrowing nail [L60.0] 11/26/2007 05/09/2014 Hypothyroidism [E03.9] 03/25/2009 Open fracture of distal phalangeal tuft [FKQ604*08/31/2011 05/09/2014 Internal derangement of right knee [M23.91] [...] ASHD (arteriosclerotic heart disease) [I25.10] 09/14/2016 Hyperlipidemia [E78.5] 09/14/2016 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] 06/08/2018 Right buttock pain [M79.18] 02/04/2019 Ankle edema, bilateral [M25.471, M25.472] 02/04/2019 Class 2 obesity due to excess calories with bod*05/13/2019 Pre-operative examination [Z01.818] 05/13/2019 Primary osteoarthritis of right hip [M16.11] 05/13/2019 Osteoarthritis of right hip [M16.11] 06/03/2019 06/06/2019 Carpal tunnel syndrome, bilateral [G56.03] 11/20/2019 Stage 3a chronic kidney disease [N18.31] 04/29/2020 Obesity, Class II, BMI 35-39.9 [E66.812] 04/29/2020 Bilateral leg edema [R60.0] 04/29/2020 Venous insufficiency (chronic) (peripheral) [I8*04/29/2020 Cervical radiculopathy [M54.12] 02/08/2021 Chronic low back pain with bilateral sciatica [*12/08/2021 Personal history of fall [Z91.81] 12/08/2021 Age-related physical debility [R54] 12/08/2021 Obesity, Class III, BMI 40-49.9 (morbid obesity*11/02/2022 Chronic bilateral low back pain with bilateral *11/29/2022 Stage 3b chronic kidney disease (HCC) [N18.32] 05/15/2023 Acute saddle pulmonary embolism without acute c*10/23/2023 Acute deep vein thrombosis (DVT) of femoral vei*10/23/2023 Acute hypoxemic respiratory failure (HCC) [J96.*10/23/2023 10/27/2023 RVF (right ventricular failure) (HCC) [I50.810] 10/24/2023 Pulmonary HTN (HCC) [I27.20] 10/25/2023 Unsteady gait [R26.81] 12/18/2023 Encounter Status:Closed by SISSY CAMPBELL on (more content not included)... Normal [facility] Comprehensive metabolic 2000 panelon 08-15-2024 Albumin [Mass/Vol] 3.9 g/dL Normal 3.9-4.9 [facility] Comment on above: Order Comment: Speci men Type: BLOOD SPECIMENOrdering Facility: [facility] Address: [address] [place] [address] Performed By: #### 2 4323-8, 3016-3, 40860-9 ####[facility] LABCLIA [id number] [address] [address] [place] ALP [Catalytic activity/Vol] 85 U/L Normal 38-113 [facility] Comment on above: Order Comment: Speci men Type: BLOOD SPECIMENOrdering Facility: [facility] Address: [address] [place] [address] Performed By: #### 2 4323-8, 3016-3, 53264-2 ####[facility] LABCLIA [id number] [place] [id number] [place] ALT [Catalytic activity/Vol] 22 U/L Normal 10-54 [facility] Comment on above: Order Comment: Speci men Type: BLOOD SPECIMENOrdering Facility: [facility] Address: [address] [place] [address] Performed By: #### 2 4323-8, 6-3, 56161-6 ####[facility] LABCLIA [id number] [place] [id number] [place] Anion gap [Moles/Vol] 13 mmol/L Normal 8-15 [facility] Comment on above: Order Comment: Speci men Type: BLOOD SPECIMENOrdering Facility: [facility] Address: [address] [place] [address] Performed By: #### 2 4323-8, 6-3, 05236-4 ####[facility] LABCLIA [id number] [place] [id number] [place] AST [Catalytic activity/Vol] 25 U/L Normal 14-40 [facility] Comment on above: Order Comment: Speci men Type: BLOOD SPECIMENOrdering Facility: [facility] Address: [address] [place], [place] [address] Performed By: #### 2 4323-8, 6-3, 46226-0 ####[facility] LABCLIA [id number] [address] [address] [place] Bilirubin [Mass/Vol] 0.5 mg/dL Normal 0.2-1.3 [facility] Comment on above: Order Comment: Speci men Type: BLOOD SPECIMENOrdering Facility: [facility] Address: [address] [place], [place] [address] Performed By: #### 2 4323-8, 3016-3, 32080-3 ####[facility] LABCLIA [id number] [address] [address] [place] Calcium [Mass/Vol] 9.1 mg/dL Normal 8.5-10.2 [facility] Comment on above: Order Comment: Speci men Type: BLOOD SPECIMENOrdering Facility: [facility] Address: [address] [place] [address] Performed By: #### 2 4323-8, 3015-3, 55801-3 ####[facility] LABCLIA [id number] [address] [address] [place] Chloride [Moles/Vol] 104 mmol/L Normal 98-107 [facility] Comment on above: Order Comment: Speci men Type: BLOOD SPECIMENOrdering Facility: [facility] Address: [address] [place] [address] Performed By: #### 2 4323-8, 3015-3, 55032-8 ####[facility] LABCLIA [id number] [address] [address] [place] CO2 [Moles/Vol] 22 mmol/L Normal 22-30 [facility] Comment on above: Order Comment: Speci men Type: BLOOD SPECIMENOrdering Facility: [facility] Address: [address] [place], [place] [address] Performed By: #### 2 4323-8, 6-3, 38919-6 ####[facility] LABCLIA [id number] [address] [address] [place] Creatinine [Mass/Vol] 1.40 mg/dL High 0.73-1.22 [facility] Comment on above: Order Comment: Tiffanie rollins Type: BLOOD SPECIMENOrdering Facility: [facility] Address: [address] [place] [address] Performed By: #### 2 4323-8, 3016-3, 25518-7 ####[facility] LABCLIA [id number] [place] [id number] [place] Creatinine and Glomerular filtration rate.predicted panel (S/P/Bld) 51 mL/min/1.73m??? Low >=60 [facility] Comment on above: Order Comment: Tiffanie rollins Type: BLOOD SPECIMENOrdering Facility: [facility] Address: [address] [place] [address] Result Comment: Danika mated Glomerular Filtration Rate (eGFR) is calculated using the 2020 CKD-EPI creatinine equation. This equation utilizes serum creatinine, sex, and age as parameters. The creatinine assay has traceable calibration to isotope dilution-mass spectrometry. Refer to KDIGO guidelines for clinical interpretation. In patients with unstable renal function, e.g. those with acute kidney injury, the eGFR may not accurately reflect actual GFR. Performed By: #### 2 4323-8, 3016-3, 22738-5 ####[facility] LABCLIA [id number] [place] [id number] [place] Glucose [Mass/Vol] 123 mg/dL High 74-99 [facility] Comment on above: Order Comment: Tiffanie rollins Type: BLOOD SPECIMENOrdering Facility: [facility] Address: [address] [place] [address] Result Comment: The [place] Diabetes Association (ADA) provides guidance for cutoff values for fasting glucose and random glucose. The ADA defines fasting as no caloric intake for at least 8 hours. Fasting plasma glucose results between 100 to 125 mg/dL indicate increased risk for diabetes (prediabetes). Fasting plasma glucose results greater than or equal to 126 mg/dL meet the criteria for diagnosis of diabetes. In the absence of unequivocal hyperglycemia, results should be confirmed by repeat testing. In a patient with classic symptoms of hyperglycemia or hyperglycemic crisis, random plasma glucose results greater than or equal to 200 mg/dL meet the criteria for diagnosis of diabetes. Reference: Standards of Medical Care in Diabetes 2016, [place] [employer]. Diabetes Care. 2016.39(Suppl 1). Performed By: #### 2 4323-8, 6-3, 51685-3 ####[facility] LABCLIA [id number] [address] [address] [place] Potassium [Moles/Vol] 4.4 mmol/L Normal 3.7-5.1 [facility] Comment on above: Order Comment: Speci men Type: BLOOD SPECIMENOrdering Facility: [facility] Address: [address] [place] [address] Performed By: #### 2 4323-8, 3015-3, 61566-7 ####[facility] LABCLIA [id number] [address] [address] [place] Protein [Mass/Vol] 6.9 g/dL Normal 6.3-8.0 [facility] Comment on above: Order Comment: Speci men Type: BLOOD SPECIMENOrdering Facility: [facility] Address: [address] [place] [address] Performed By: #### 2 4323-8, 3, 18341-0 ####[facility] LABCLIA [id number] [address] [address] [place] Sodium [Moles/Vol] 139 mmol/L Normal 136-144 [facility] Comment on above: Order Comment: Speci men Type: BLOOD SPECIMENOrdering Facility: [facility] Address: [address] [place] [address] Performed By: #### 2 4323-8, 3, 89592-7 ####[facility] LABCLIA [id number] [address] [address] [place] Urea nitrogen [Mass/Vol] 19 mg/dL Normal 9-24 [facility] Comment on above: Order Comment: Speci men Type: BLOOD SPECIMENOrdering Facility: [facility] Address: [address] [place] [address] Performed By: #### 2 4323-8, 3016-3, 04146-9 ####[facility] LABIA [id number] [address] [place] HbA1c (Bld)on 08-15-2024 Average glucose Estimated from glycated hemoglobin (Bld) [Mass/Vol] 126 mg/dL Normal [facility] Comment on above: Order Comment: Speci men Type: BLOOD SPECIMENOrdering Facility: [facility] Address: [address] [place] [address] Result Comment: eAG: (Estimated average glucose) is a calculated value from HgbA1c and is exhibit display representative of the average blood glucose level in the last 2-3 month period. Performed By: #### 5 5454-3 ####[facility] LABIA [id number] [address] [place] HbA1c (Bld) [Mass fraction] 6.0 % High 4.3-5.6 [facility] Comment on above: Order Comment: Tiffanie rollins Type: BLOOD SPECIMENOrdering Facility: [facility] Address: [address] [place] [address] Result Comment: [place] Diabetes Association guidelines indicate that patients with HgbA1c in the range 5.7-6.4% are at increased risk for development of diabetes, and intervention by lifestyle modification may be beneficial. HgbA1c greater or equal to 6.5% is considered diagnostic of diabetes. Performed By: #### 5 5454-3 ####[facility] LABIA [id number] [address] [address] [place] Lipid 1996 panelon 5 Cholesterol [Mass/Vol] 138 mg/dL Normal <200 Cl [facility] Comment on above: Order Comment: Tiffanie men Type: BLOOD SPECIMENOrdering Facility: [facility] Address: [address] [place] [address] Result Comment: <200 mg/dL, Desirable 200-239 mg/dL, Borderline high >239 mg/dL, High Performed By: #### 2 4323-8, 6-3, 81404-9 ####[facility] LABCLIA [id number] [facility] [id number] [place] [address] [place] Cholesterol in HDL [Mass/Vol] 31 mg/dL Low >39 [facility] Comment on above: Order Comment: Speci men Type: BLOOD SPECIMENOrdering Facility: [facility] Address: [address] [place] [address] Result Comment: 40-5 9 mg/dL, Acceptable >59 mg/dL, High: Negative risk factor for coronary heart disease <40 mg/dL, Low: Positive risk factor for coronary heart disease Performed By: #### 2 4323-8, 6-3, 39698-9 ####[facility] LABCLIA [id number] [address] [place] [address] [facility] Cholesterol in LDL [Mass/Vol] 59 mg/dL Normal <100 [facility] Comment on above: Order Comment: Ruthi men Type: BLOOD SPECIMENOrdering Facility: [facility] Address: [address] [place] [address] Result Comment: <100 mg/dL, Optimal 100-129 mg/dL, Near optimal/above optimal 130-159 mg/dL, Borderline high 160-189 mg/dL, High >189 mg/dL, Very high Secondary prevention optimal LDL Cholesterol levels are recommended to be < 70 mg/dL Performed By: #### 2 4323-8, 3015-3, 97931-2 ####[facility] LABCLIA [id number] [facility] [address] [place] [address] [facility] Cholesterol in LDL/Cholesterol in HDL [Mass ratio] 1.90 {ratio} Normal <2.54 [facility] Comment on above: Order Comment: Speci men Type: BLOOD SPECIMENOrdering Facility: [facility] Address: [address] [place] [address] Result Comment: Refe rence: 1. National Cholesterol Education Program ATP III Guideline At-A-Glance Quick Desk Reference: National Heart, Lung, and Blood [place]. National Institutes of Health. 2001: NIH Publication No. 01-3305. 2. An International Atherosclerosis Society position paper: global recommendations for the management of dyslipidemia: executive summary, Atherosclerosis. 2014: 232(2):410-413. Performed By: #### 2 4323-8, 6-3, 19775-6 ####[facility] LABCLIA [id number] [address] [address] [place] Cholesterol in VLDL [Mass/Vol] 48 mg/dL High <30 [facility] Comment on above: Order Comment: Speci men Type: BLOOD SPECIMENOrdering Facility: [facility] Address: [address] [place] [address] Performed By: #### 2 4323-8, 3, 44765-0 ####[facility] LABCLIA [id number] [place] [id number] [place] Cholesterol non HDL [Mass/Vol] 107 mg/dL Normal <130 [facility] Comment on above: Order Comment: Speci men Type: BLOOD SPECIMENOrdering Facility: [facility] Address: [address] [place] [address] Result Comment: <130 mg/dL, Optimal 130-159 mg/dL, Near optimal/above optimal 160-189 mg/dL, Borderline high 190-219 mg/dL, High >219 mg/dL, Very high Secondary prevention optimal non HDL Cholesterol levels are recommended to be <100 mg/dL Performed By: #### 2 4323-8, 3015-3, 75744-0 ####[facility] LABCLIA [id number] [address] [address] [place] Cholesterol.total/Chol esterol in HDL [Mass ratio] 4.45 {ratio} Normal <5.10 [facility] Comment on above: Order Comment: Speci men Type: BLOOD SPECIMENOrdering Facility: [facility] Address: [address] [place] [address] Performed By: #### 2 4323-8, 3015-3, 97603-0 ####[facility] LABCLIA [id number] [address], [facility] [place] FASTING TIME 12 hrs Normal [facility] Comment on above: Order Comment: Speci men Type: BLOOD SPECIMENOrdering Facility: [facility] Address: [address] [place] [address] Performed By: #### 2 4323-8, 3016-3, 62843-6 ####[facility] LABIA [id number] [address], [place] [address] [place] Triglyceride [Mass/Vol] 242 mg/dL High <150 [facility] Comment on above: Order Comment: Speci men Type: BLOOD SPECIMENOrdering Facility: [facility] Address: [address] [place] [address] Result Comment: <150 mg/dL, Normal 150-199 mg/dL, Borderline high 200-499 mg/dL, High >499 mg/dL, Very high Performed By: #### 2 4323-8, 3016-3, 52600-7 ####[facility] LABIA [id number] [address], [place] [address] [place] TSH SerPl-aCncon 08-15-2024 TSH Qn 7.390 m[IU]/L High 0.270-4.200 [facility] Comment on above: Order Comment: Speci men Type: BLOOD SPECIMENOrdering Facility: [facility] Address: [address] [place] [address] Performed By: #### 2 4323-8, 3016-3, 63843-1 ####[facility] LABIA [id number] [address], [facility] [place] CNOVon 08-13-2024 CNOV Office Visit (FAMPWS ) -- IGLESIAFRAN ([id number]) 1945 M Date Time Provider Department 08/13/24 11:40 AM MARILIA OROZCO During your visit today, we recorded the following information about you: Pulse Respiration Blood pressure Weight 65/minute 18/minute 118/82 133.7 kg Height 1.766 m Marilia Orozco APRN.SUPERVISOR REMELT 08/13/2024 12:17 PM Signed 08/12/2024 Patient presents with: Yearly Exam SUBJECTIVE: This is a 78 year old that is here today for Above Complaints. MARTIN: wears CPAP nightly HTN: Patient is compliant with meds Yes Monitors bp at home: No. Denies side effects: No. Chest pain: No. Dyspnea: No. Edema: Yes. Palpitations: No. Syncope: No. Headache: No. Dizziness: No. Prediabetes: does not routinely follow low carbohydrate diet. Denies visual changes, polyuria or polydipsia HYPOTHYROIDISM: taking synthroid as prescribed without side effects HYPERLIPIDEMIA: Patient is taking medications: Yes. Patient is watching diet: No. Patient denies myalgias: Yes. Patient denies gi upset: Yes 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 Recent ERCP on 07/04/2024 for biliary sphincterotomy and removal of one stent from biliary tree. Will be going in the 07 of October for a biopsy since they found something precancerous on his EGD. He is unsure what area they are doing the biopsy on Hx of saddle PE and pulmonary HTN: follows with pulmonology with last office visit on 01/18/2024. No medication changes made at that time. Taking Eliquis as prescribed without side effects. Next office visit scheduled for Last Monday had left sided back ablation by Dr. Eduardo. Pain maybe a little better. Has follow-up in Monday PAST MEDICAL HISTORY Diagnosis Date Angina at [...] of skin of nose Dr. Chowdary in [place] Stage 3a chronic kidney disease (HCC) Venous insufficiency ALLERGIES Norvasc [Amlodipine Besylate], Venom-Wasp, and Zithromax [Azithromycin] MEDICATIONS Current Outpatient Medications Medication Sig metoprolol succinate ER (TOPROL XL) 50 mg 24 hr tablet Take 1 tablet by mouth once daily. lisinopril (ZESTRIL) 40 mg tablet Take 1 tablet by mouth once daily. apixaban (ELIQUIS) 5 mg tab(s) Take 1 tablet by mouth two times a day. levothyroxine (SYNTHROID) 125 mcg tablet TAKE 1 TABLET BY MOUTH EVERY DAY ON AN EMPTY STOMACH FOR THYROID hydroCHLOROthiazide 25 mg tablet Take 1 tablet by mouth once daily. cefdinir (OMNICEF) 300 mg capsule Take 300 mg by mouth two times a day. tiZANidine (ZANAFLEX) 2 mg tablet Take 1 tablet by mouth every 6 hours as needed. ammonium lactate (LAC-HYDRIN) 12 % cream Apply to affected area as needed. Apply on thick skin gabapentin (NEURONTIN) 300 mg capsule Take 300 mg by mouth daily at bedtime. atorvastatin (LIPITOR) 40 mg tablet Take 1 tablet by mouth once daily. amoxicillin (POLYMOX, AMOXIL) 500 mg capsule Take four capsules one hour before dental procedure. (Patient not taking: Reported on 12/19/2023) CPAP AutoPAP [id number]. Mask per preference, tubing, filters, humidity. Lifetime Supplies. Dx: G47.33. Fax 30 day compliance report to [phone]. CPAP Please provide mask fitting. Pt with [...] Social History Tobacco Use Smoking status: Never Passive exposure: Past Smokeless tobacco: Never Vaping Use Vaping status: Never Used Substance Use Topics Alcohol use: No Drug use: No REVIEW OF SYSTEMS All other reviewed and negative other than HPI. OBJECTIVE: BP 118/82 Pulse 65 Resp 18 Ht 176.6 cm (5' 9.53) Wt 133.7 kg (294 lb 12.8 oz) SpO2 95% BMI 42.88 kg/m? . Vital signs review (more content not included)... Normal [facility] Gastroenterology Visit Repor ton 07-23-2024 Gastroenterology Visit Report Normal [facility] ERCP Biliary/Pancreason ERCP Biliary/Pancreas Normal [facility] ERCP Reporton 07-04-2024 ERCP Report Normal [facility] Immunohistochemical Stainson 07-04-2024 Immunohistochemical Stains [facility] Comment on above: Performed By: #### P IMHI ####[facility] [address] [place], [address] MR/POSTOP.ANEon 07-04-2024 MR/POSTOP.ANE [facility] MR/SFOHZJBC2on 07-04-2024 MR/POSTOPAN2 [facility] Special Stain Group IIon Special Stain Group II [facility] Comment on above: Performed By: #### P SSII ####[facility] [address] [place], [address] MR/PAT.ANEon 07-02-2024 MR/PAT.DEVI [facility] CNPRaine 06-24-2024 [facility] Telephone ([facility]) -- MARINOFRAN KAY ([id number]) 1945 M Date Time Provider Department 06/24/24 VICTOR MANUEL SAVAGE During your visit today, we recorded the following information about you: Home [facility] PSS 06/24/2024 2:18 PM Addendum Called patient to reschedule 10/22/[address] Savage, 1st attempt, left . Please offer virtual appointment at [place] [address] or [facility]. [facility] PSS 06/28/2024 11:06 AM Signed Patient rescheduled on 10/21/2024. Allergies As of Date: 06/24/2024 Noted Allergy Reaction NORVASC (AMLODIPINE BESYLATE) 09/14/2016 7 - Swelling Comments: pedal edema VENOM-WASP 01/14/2005 7 - Swelling ZITHROMAX (AZITHROMYCIN) 01/14/2005 9 - Itching Date Reviewed: 04/01/2024 Reviewed by: Eunice Bruce LPN - Fully Assessed Reason for Visit: Appointment [186] Prescriptions as of 06/28/2024 - apixaban (ELIQUIS) 5 mg tab(s) Take 1 tablet by mouth two times a day. - levothyroxine (SYNTHROID) 125 mcg tablet TAKE 1 TABLET BY MOUTH EVERY DAY ON AN EMPTY STOMACH FOR THYROID - hydroCHLOROthiazide 25 mg tablet Take 1 tablet by mouth once daily. - cefdinir (OMNICEF) 300 mg capsule Take 300 mg by mouth two times a day. - lisinopril (ZESTRIL) 40 mg tablet Take 1 tablet by mouth once daily. - tiZANidine (ZANAFLEX) 2 mg tablet Take 1 tablet by mouth every 6 hours as needed. - metoprolol succinate ER (TOPROL XL) 50 mg 24 hr tablet Take 1 tablet by mouth once daily. - ammonium lactate (LAC-HYDRIN) 12 % cream Apply to affected area as needed. Apply on thick skin - gabapentin (NEURONTIN) 300 mg capsule Take 300 mg by mouth daily at bedtime. - atorvastatin (LIPITOR) 40 mg tablet Take 1 tablet by mouth once daily. - amoxicillin (POLYMOX, AMOXIL) 500 mg capsule Take four capsules one hour before dental procedure. - CPAP AutoPAP [id number]. Mask per preference, tubing, filters, humidity. Lifetime Supplies. Dx: G47.33. Fax 30 day compliance report to [phone]. - CPAP Please provide mask fitting. Pt [...] tablet daily. Problem List As Of Date 06/24/2024 Noted Resolved Primary hypertension [I10] 03/11/2005 Hypertrophy of prostate with urinary obstructio*06/01/2006 BLADDER NECK OBSTRUCTION [N32.0] 06/01/2006 Plantar fascial fibromatosis [M72.2] 11/02/2006 05/09/2014 Ingrowing nail [L60.0] 11/26/2007 05/09/2014 Hypothyroidism [E03.9] 03/25/2009 Open fracture of distal phalangeal tuft [DMU763*08/31/2011 05/09/2014 Internal derangement of right knee [M23.91] [...] ASHD (arteriosclerotic heart disease) [I25.10] 09/14/2016 Hyperlipidemia [E78.5] 09/14/2016 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] 06/08/2018 Right buttock pain [M79.18] 02/04/2019 Ankle edema, bilateral [M25.471, M25.472] 02/04/2019 Class 2 obesity due to excess calories with bod*05/13/2019 Pre-operative examination [Z01.818] 05/13/2019 Primary osteoarthritis of right hip [M16.11] 05/13/2019 Osteoarthritis of right hip [M16.11] 06/03/2019 06/06/2019 Carpal tunnel syndrome, bilateral [G56.03] 11/20/2019 Stage 3a chronic kidney disease [N18.31] 04/29/2020 Obesity, Class II, BMI 35-39.9 [E66.812] 04/29/2020 Bilateral leg edema [R60.0] 04/29/2020 Venous insufficiency (chronic) (peripheral) [I8*04/29/2020 Cervical radiculopathy [M54.12] 02/08/2021 Chronic low back pain with bilateral sciatica [*12/08/2021 Personal history of fall [Z91.81] 12/08/2021 Age-related physical debility [R54] 12/08/2021 Obesity, Class III, BMI 40-49.9 (morbid obesity*11/02/2022 Chronic bilateral low back pain with bilateral *11/29/2022 Stage 3b chronic kidney disease (HCC) [N18.32] 05/15/2023 Acute saddle pulmonary embolism without acute c*10/23/2023 Acute deep vein thrombosis (DVT) of femoral vei*10/23/2023 Acute hypoxemic respiratory failure (HCC) [J96.*10/23/2023 10/27/2023 RVF (right ventricular failure) (HCC) [I50.810] 10/24/2023 Pulmonary HTN (HCC) [I27.20] 10/25/2023 Unsteady gait [R26.81] 12/18/2023 Encounter Status:Closed by HOME DUMAS on 06/28/24 Normal [facility] Gastroenterology Visit Repor ton 04-16-2024 Gastroenterology Visit Report Normal [facility] Basic Metabolic Profile (BMP )on 04-04-2024 BUN Normal 7-18 [facility] Comment on above: Result Comment: Canc elled via OM: Order cancelled - Patient discharged Performed By: #### L 100.0100, L500.2500 ####[facility] [address] [place], [address] BUN/CRE Normal 10-20 [facility] Comment on above: Result Comment: Canc elled via OM: Order cancelled - Patient discharged Performed By: #### L 100.0100, L500.2500 ####[facility] [address] [place], [address] CA,Total Normal 8.5-10.1 [facility] Comment on above: Result Comment: Canc elled via OM: Order cancelled - Patient discharged Performed By: #### L 100.0100, L500.2500 ####[facility] [address] [place], [address] CL Normal 98-107 [facility] Comment on above: Result Comment: Canc elled via OM: Order cancelled - Patient discharged Performed By: #### L 100.0100, L500.2500 ####[facility] [address] [place], [address] CO2 Normal 21.0-32.0 [facility] Comment on above: Result Comment: Canc elled via OM: Order cancelled - Patient discharged Performed By: #### L 100.0100, L500.2500 ####[facility] [address] [place], [address] CREAT,SERUM Normal 0.70-1.30 [facility] Comment on above: Result Comment: Canc elled via OM: Order cancelled - Patient discharged Performed By: #### L 100.0100, L500.2500 ####[facility] [address] [place], [address] EST GFR Normal >60 [facility] Comment on above: Result Comment: Canc elled via OM: Order cancelled - Patient discharged Performed By: #### L 100.0100, L500.2500 ####[facility] [address] [place], [address] EST GFR - AA Normal >60 [facility] Comment on above: Result Comment: Canc elled via OM: Order cancelled - Patient discharged Performed By: #### L 100.0100, L500.2500 ####[facility] [address] [place], [address] GAP Normal 5-15 [facility] Comment on above: Result Comment: Canc elled via OM: Order cancelled - Patient discharged Performed By: #### L 100.0100, L500.2500 ####[facility] [address] [place], [address] GLU Normal 74-106 [facility] Comment on above: Result Comment: Canc elled via OM: Order cancelled - Patient discharged Performed By: #### L 100.0100, L500.2500 ####[facility] [address] [place], [address] Potassium Normal 3.5-5.1 [facility] Comment on above: Result Comment: Canc elled via OM: Order cancelled - Patient discharged Performed By: #### L 100.0100, L500.2500 ####[facility] [address] [place], [address] Basic Metabolic Profile (BMP) Normal 136-145 [facility] Comment on above: Result Comment: Canc elled via OM: Order cancelled - Patient discharged Performed By: #### L 100.0100, L500.2500 ####[facility] [address] [place], [address] CBC W/Diff, Automatedon 12-0 Absolute Neut Normal 2.0-7.7 [facility] Comment on above: Result Comment: Canc elled via OM: Order cancelled - Patient discharged Performed By: #### L 100.0100, L500.2500 ####[facility] [address] [place], [address] HCT Normal 40-54 [facility] Comment on above: Result Comment: Canc elled via OM: Order cancelled - Patient discharged Performed By: #### L 100.0100, L500.2500 ####[facility] [address] [place], [address] HGB Normal 13.0-16.5 [facility] Comment on above: Result Comment: Canc elled via OM: Order cancelled - Patient discharged Performed By: #### L 100.0100, L500.2500 ####[facility] [address] [place], [address] MCH Normal 27.0-32.0 [facility] Comment on above: Result Comment: Canc elled via OM: Order cancelled - Patient discharged Performed By: #### L 100.0100, L500.2500 ####[facility] [address] [place], [address] MCHC Normal 32-36 [facility] Comment on above: Result Comment: Canc elled via OM: Order cancelled - Patient discharged Performed By: #### L 100.0100, L500.2500 ####[facility] [address] [place], [address] MCV Normal 80-94 [facility] Comment on above: Result Comment: Canc elled via OM: Order cancelled - Patient discharged Performed By: #### L 100.0100, L500.2500 ####[facility] [address] [place], [address] NEUT% Normal 47-70 [facility] Comment on above: Result Comment: Canc elled via OM: Order cancelled - Patient discharged Performed By: #### L 100.0100, L500.2500 ####[facility] [address] [place], [address] PLT Normal 150-450 [facility] Comment on above: Result Comment: Canc elled via OM: Order cancelled - Patient discharged Performed By: #### L 100.0100, L500.2500 ####[facility] [address] [place], [address] RBC Normal 4.6-6.2 [facility] Comment on above: Result Comment: Canc elled via OM: Order cancelled - Patient discharged Performed By: #### L 100.0100, L500.2500 ####[facility] [address] [place], [address] RDW CV Normal 11.6-14.6 [facility] Comment on above: Result Comment: Canc elled via OM: Order cancelled - Patient discharged Performed By: #### L 100.0100, L500.2500 ####[facility] [address] [place], [address] RDW SD Normal 35.1-43.9 [facility] Comment on above: Result Comment: Canc elled via OM: Order cancelled - Patient discharged Performed By: #### L 100.0100, L500.2500 ####[facility] [address] [place], [address] WBC Normal 4.4-11.0 [facility] Comment on above: Result Comment: Canc elled via OM: Order cancelled - Patient discharged Performed By: #### L 100.0100, L500.2500 ####[facility] [address] [place], [address] Basic Metabolic Profile (BMP )on 04-03-2024 BUN Normal 7-18 [facility] Comment on above: Result Comment: Canc elled via OM: Order cancelled - Patient discharged Performed By: #### L 100.0100, L500.2500 ####[facility] [address] [place], [address] BUN/CRE Normal 10-20 [facility] Comment on above: Result Comment: Canc elled via OM: Order cancelled - Patient discharged Performed By: #### L 100.0100, L500.2500 ####[facility] [address] [place], [address] CA,Total Normal 8.5-10.1 [facility] Comment on above: Result Comment: Canc elled via OM: Order cancelled - Patient discharged Performed By: #### L 100.0100, L500.2500 ####[facility] [address] [place], [address] CL Normal 98-107 [facility] Comment on above: Result Comment: Canc elled via OM: Order cancelled - Patient discharged Performed By: #### L 100.0100, L500.2500 ####[facility] [address] [place], [address] CO2 Normal 21.0-32.0 [facility] Comment on above: Result Comment: Canc elled via OM: Order cancelled - Patient discharged Performed By: #### L 100.0100, L500.2500 ####[facility] [address] [place], [address] CREAT,SERUM Normal 0.70-1.30 [facility] Comment on above: Result Comment: Canc elled via OM: Order cancelled - Patient discharged Performed By: #### L 100.0100, L500.2500 ####[facility] [address] [place], [address] EST GFR Normal >60 [facility] Comment on above: Result Comment: Canc elled via OM: Order cancelled - Patient discharged Performed By: #### L 100.0100, L500.2500 ####[facility] [address] [place], [address] EST GFR - AA Normal >60 [facility] Comment on above: Result Comment: Canc elled via OM: Order cancelled - Patient discharged Performed By: #### L 100.0100, L500.2500 ####[facility] [address] [place], [address] GAP Normal 5-15 [facility] Comment on above: Result Comment: Canc elled via OM: Order cancelled - Patient discharged Performed By: #### L 100.0100, L500.2500 ####[facility] [address] [place], [address] GLU Normal 74-106 [facility] Comment on above: Result Comment: Canc elled via OM: Order cancelled - Patient discharged Performed By: #### L 100.0100, L500.2500 ####[facility] [address] [place], [address] Potassium Normal 3.5-5.1 [facility] Comment on above: Result Comment: Canc elled via OM: Order cancelled - Patient discharged Performed By: #### L 100.0100, L500.2500 ####[facility] [address] [place], [address] Basic Metabolic Profile (BMP) Normal 136-145 [facility] Comment on above: Result Comment: Canc elled via OM: Order cancelled - Patient discharged Performed By: #### L 100.0100, L500.2500 ####[facility] [address] [place], [address] CBC W/Diff, Automatedon 12-0 Absolute Neut Normal 2.0-7.7 [facility] Comment on above: Result Comment: Canc elled via OM: Order cancelled - Patient discharged Performed By: #### L 100.0100, L500.2500 ####[facility] [address] [place], [address] HCT Normal 40-54 [facility] [place] Comment on above: Result Comment: Canc elled via OM: Order cancelled - Patient discharged Performed By: #### L 100.0100, L500.2500 ####[facility] [place] [address] [place], [address] HGB Normal 13.0-16.5 [facility] [place] Comment on above: Result Comment: Canc elled via OM: Order cancelled - Patient discharged Performed By: #### L 100.0100, L500.2500 ####[facility] [place] [address] [place], [address] MCH Normal 27.0-32.0 [facility] [place] Comment on above: Result Comment: Canc elled via OM: Order cancelled - Patient discharged Performed By: #### L 100.0100, L500.2500 ####[facility] [place] [address] [place], [address] MCHC Normal 32-36 [facility] [place] Comment on above: Result Comment: Canc elled via OM: Order cancelled - Patient discharged Performed By: #### L 100.0100, L500.2500 ####[facility] [place] [address] [place], [address] MCV Normal 80-94 [facility] [place] Comment on above: Result Comment: Canc elled via OM: Order cancelled - Patient discharged Performed By: #### L 100.0100, L500.2500 ####[facility] [place] [address] [place], [address] NEUT% Normal 47-70 [facility] [place] Comment on above: Result Comment: Canc elled via OM: Order cancelled - Patient discharged Performed By: #### L 100.0100, L500.2500 ####[facility] [place] [address] [place], [address] PLT Normal 150-450 [facility] [place] Comment on above: Result Comment: Canc elled via OM: Order cancelled - Patient discharged Performed By: #### L 100.0100, L500.2500 ####[facility] [place] [address] [place], [address] RBC Normal 4.6-6.2 [facility] [place] Comment on above: Result Comment: Canc elled via OM: Order cancelled - Patient discharged Performed By: #### L 100.0100, L500.2500 ####[facility] [place] [address] [place], [address] RDW CV Normal 11.6-14.6 [facility] [place] Comment on above: Result Comment: Canc elled via OM: Order cancelled - Patient discharged Performed By: #### L 100.0100, L500.2500 ####[facility] [place] [address] [place], [address] RDW SD Normal 35.1-43.9 [facility] [place] Comment on above: Result Comment: Canc elled via OM: Order cancelled - Patient discharged Performed By: #### L 100.0100, L500.2500 ####[facility] [place] [address] [place], [address] WBC Normal 4.4-11.0 [facility] [place] Comment on above: Result Comment: Canc elled via OM: Order cancelled - Patient discharged Performed By: #### L 100.0100, L500.2500 ####[facility] [place] [address] [place], [address] Basic Metabolic Profile (BMP )on 04-02-2024 BUN Normal 7-18 [facility] [place] Comment on above: Result Comment: Canc elled via OM: Order cancelled - Patient discharged Performed By: #### L 100.0100, L500.2500 ####[facility] [place] [address] [place], [address] BUN/CRE Normal 10-20 [facility] [place] Comment on above: Result Comment: Canc elled via OM: Order cancelled - Patient discharged Performed By: #### L 100.0100, L500.2500 ####[facility] [place] [address] [place], [address] CA,Total Normal 8.5-10.1 [facility] [place] Comment on above: Result Comment: Canc elled via OM: Order cancelled - Patient discharged Performed By: #### L 100.0100, L500.2500 ####[facility] [place] [address] [place], [address] CL Normal 98-107 [facility] [place] Comment on above: Result Comment: Canc elled via OM: Order cancelled - Patient discharged Performed By: #### L 100.0100, L500.2500 ####[facility] [place] [address] [place], [address] CO2 Normal 21.0-32.0 [facility] [place] Comment on above: Result Comment: Canc elled via OM: Order cancelled - Patient discharged Performed By: #### L 100.0100, L500.2500 ####[facility] [place] [address] [place], [address] CREAT,SERUM Normal 0.70-1.30 [facility] [place] Comment on above: Result Comment: Canc elled via OM: Order cancelled - Patient discharged Performed By: #### L 100.0100, L500.2500 ####[facility] [place] [address] [place], [address] EST GFR Normal >60 [facility] [place] Comment on above: Result Comment: Canc elled via OM: Order cancelled - Patient discharged Performed By: #### L 100.0100, L500.2500 ####[facility] [place] [address] [place], [address] EST GFR - AA Normal >60 [facility] [place] Comment on above: Result Comment: Canc elled via OM: Order cancelled - Patient discharged Performed By: #### L 100.0100, L500.2500 ####[facility] [place] [address] [place], [address] GAP Normal 5-15 [facility] [place] Comment on above: Result Comment: Canc elled via OM: Order cancelled - Patient discharged Performed By: #### L 100.0100, L500.2500 ####[facility] [place] [address] [place], [address] GLU Normal 74-106 [facility] [place] Comment on above: Result Comment: Canc elled via OM: Order cancelled - Patient discharged Performed By: #### L 100.0100, L500.2500 ####[facility] [place] [address] [place], [address] Potassium Normal 3.5-5.1 [facility] [place] Comment on above: Result Comment: Canc elled via OM: Order cancelled - Patient discharged Performed By: #### L 100.0100, L500.2500 ####[facility] [place] [address] [place], [address] Basic Metabolic Profile (BMP) Normal 136-145 [facility] [place] Comment on above: Result Comment: Canc elled via OM: Order cancelled - Patient discharged Performed By: #### L 100.0100, L500.2500 ####[facility] [place] [address] [place], [address] CBC W/Diff, Automatedon 12-0 -2023 Absolute Neut Normal 2.0-7.7 [facility] [place] Comment on above: Result Comment: Canc elled via OM: Order cancelled - Patient discharged Performed By: #### L 100.0100, L500.2500 ####[facility] [place] [address] [place], [address] HCT Normal 40-54 [facility] [place] Comment on above: Result Comment: Canc elled via OM: Order cancelled - Patient discharged Performed By: #### L 100.0100, L500.2500 ####[facility] [place] [address] [place], [address] HGB Normal 13.0-16.5 [facility] [place] Comment on above: Result Comment: Canc elled via OM: Order cancelled - Patient discharged Performed By: #### L 100.0100, L500.2500 ####[facility] [place] [address] [place], [address] MCH Normal 27.0-32.0 [facility] [place] Comment on above: Result Comment: Canc elled via OM: Order cancelled - Patient discharged Performed By: #### L 100.0100, L500.2500 ####[facility] [place] [address] [place], [address] MCHC Normal 32-36 [facility] [place] Comment on above: Result Comment: Canc elled via OM: Order cancelled - Patient discharged Performed By: #### L 100.0100, L500.2500 ####[facility] [place] [address] [place], [address] MCV Normal 80-94 [facility] [place] Comment on above: Result Comment: Canc elled via OM: Order cancelled - Patient discharged Performed By: #### L 100.0100, L500.2500 ####[facility] [place] [address] [place], [address] NEUT% Normal 47-70 [facility] [place] Comment on above: Result Comment: Canc elled via OM: Order cancelled - Patient discharged Performed By: #### L 100.0100, L500.2500 ####[facility] [place] [address] [place], [address] PLT Normal 150-450 [facility] [place] Comment on above: Result Comment: Canc elled via OM: Order cancelled - Patient discharged Performed By: #### L 100.0100, L500.2500 ####[facility] [place] [address] [place], [address] RBC Normal 4.6-6.2 [facility] [place] Comment on above: Result Comment: Canc elled via OM: Order cancelled - Patient discharged Performed By: #### L 100.0100, L500.2500 ####[facility] [place] [address] [place], [address] RDW CV Normal 11.6-14.6 [facility] [place] Comment on above: Result Comment: Canc elled via OM: Order cancelled - Patient discharged Performed By: #### L 100.0100, L500.2500 ####[facility] [place] [address] [place], [address] RDW SD Normal 35.1-43.9 [facility] [place] Comment on above: Result Comment: Canc elled via OM: Order cancelled - Patient discharged Performed By: #### L 100.0100, L500.2500 ####[facility] [place] [address] [place], [address] WBC Normal 4.4-11.0 [facility] [place] Comment on above: Result Comment: Canc elled via OM: Order cancelled - Patient discharged Performed By: #### L 100.0100, L500.2500 ####[facility] [place] [address] [place], [address] Basic Metabolic Profile (BMP )on 04-01-2024 BUN Normal 7-18 [facility] [place] Comment on above: Result Comment: Canc elled via OM: Order cancelled - Patient discharged Performed By: #### L 500.2500, L100.0100 ####[facility] [place] [address] [place], [address] BUN/CRE Normal 10-20 [facility] [place] Comment on above: Result Comment: Canc elled via OM: Order cancelled - Patient discharged Performed By: #### L 500.2500, L100.0100 ####[facility] [place] [address] [place], [address] CA,Total Normal 8.5-10.1 [facility] [place] Comment on above: Result Comment: Canc elled via OM: Order cancelled - Patient discharged Performed By: #### L 500.2500, L100.0100 ####[facility] [place] [address] [place], [address] CL Normal 98-107 [facility] [place] Comment on above: Result Comment: Canc elled via OM: Order cancelled - Patient discharged Performed By: #### L 500.2500, L100.0100 ####[facility] [place] [address] [place], [address] CO2 Normal 21.0-32.0 [facility] [place] Comment on above: Result Comment: Canc elled via OM: Order cancelled - Patient discharged Performed By: #### L 500.2500, L100.0100 ####[facility] [place] [address] [place], [address] CREAT,SERUM Normal 0.70-1.30 [facility] [place] Comment on above: Result Comment: Canc elled via OM: Order cancelled - Patient discharged Performed By: #### L 500.2500, L100.0100 ####[facility] [place] [address] [place], [address] EST GFR Normal >60 [facility] [place] Comment on above: Result Comment: Canc elled via OM: Order cancelled - Patient discharged Performed By: #### L 500.2500, L100.0100 ####[facility] [place] [address] [place], [address] EST GFR - AA Normal >60 [facility] [place] Comment on above: Result Comment: Canc elled via OM: Order cancelled - Patient discharged Performed By: #### L 500.2500, L100.0100 ####[facility] [place] [address] [place], [address] GAP Normal 5-15 [facility] [place] Comment on above: Result Comment: Canc elled via OM: Order cancelled - Patient discharged Performed By: #### L 500.2500, L100.0100 ####[facility] [place] [address] [place], [address] GLU Normal 74-106 [facility] [place] Comment on above: Result Comment: Canc elled via OM: Order cancelled - Patient discharged Performed By: #### L 500.2500, L100.0100 ####[facility] [place] [address] [place], [address] Potassium Normal 3.5-5.1 [facility] [place] Comment on above: Result Comment: Canc elled via OM: Order cancelled - Patient discharged Performed By: #### L 500.2500, L100.0100 ####[facility] [place] [address] [place], [address] Basic Metabolic Profile (BMP) Normal 136-145 [facility] [place] Comment on above: Result Comment: Canc elled via OM: Order cancelled - Patient discharged Performed By: #### L 500.2500, L100.0100 ####[facility] [place] [address] [place], [address] CBC W/Diff, Automatedon 12-0 2-2023 Absolute Neut Normal 2.0-7.7 [facility] [place] Comment on above: Result Comment: Canc elled via OM: Order cancelled - Patient discharged Performed By: #### L 500.2500, L100.0100 ####[facility] [place] [address] [place], [address] HCT Normal 40-54 [facility] [place] Comment on above: Result Comment: Canc elled via OM: Order cancelled - Patient discharged Performed By: #### L 500.2500, L100.0100 ####[facility] [place] [address] [place], [address] HGB Normal 13.0-16.5 [facility] [place] Comment on above: Result Comment: Canc elled via OM: Order cancelled - Patient discharged Performed By: #### L 500.2500, L100.0100 ####[facility] [place] [address] [place], [address] MCH Normal 27.0-32.0 [facility] [place] Comment on above: Result Comment: Canc elled via OM: Order cancelled - Patient discharged Performed By: #### L 500.2500, L100.0100 ####[facility] [place] [address] [place], [address] MCHC Normal 32-36 [facility] [place] Comment on above: Result Comment: Canc elled via OM: Order cancelled - Patient discharged Performed By: #### L 500.2500, L100.0100 ####[facility] [place] [address] [place], [address] MCV Normal 80-94 [facility] [place] Comment on above: Result Comment: Canc elled via OM: Order cancelled - Patient discharged Performed By: #### L 500.2500, L100.0100 ####[facility] [place] [address] [place], [address] NEUT% Normal 47-70 [facility] [place] Comment on above: Result Comment: Canc elled via OM: Order cancelled - Patient discharged Performed By: #### L 500.2500, L100.0100 ####[facility] [place] [address] [place], [address] PLT Normal 150-450 [facility] [place] Comment on above: Result Comment: Canc elled via OM: Order cancelled - Patient discharged Performed By: #### L 500.2500, L100.0100 ####[facility] [place] [address] [place], [address] RBC Normal 4.6-6.2 [facility] [place] Comment on above: Result Comment: Canc elled via OM: Order cancelled - Patient discharged Performed By: #### L 500.2500, L100.0100 ####[facility] [place] [address] [place], [address] RDW CV Normal 11.6-14.6 [facility] [place] Comment on above: Result Comment: Canc elled via OM: Order cancelled - Patient discharged Performed By: #### L 500.2500, L100.0100 ####[facility] [place] [address] [place], [address] RDW SD Normal 35.1-43.9 [facility] [place] Comment on above: Result Comment: Canc elled via OM: Order cancelled - Patient discharged Performed By: #### L 500.2500, L100.0100 ####[facility] [place] [address] [place], [address] WBC Normal 4.4-11.0 [facility] [place] Comment on above: Result Comment: Canc elled via OM: Order cancelled - Patient discharged Performed By: #### L 500.2500, L100.0100 ####[facility] [place] [address] [place], [address] CNOVon 04-01-2024 CNOV Office Visit ([facility] ) -- FRAN PAREKH ([id number]) 1945 M Date Time Provider Department 04/01/24 12:00 PM MARILIA OROZCO During your visit today, we recorded the following information about you: Temperature Pulse Respiration Blood pressure 97.9 degrees 59/minute 18/minute 138/82 Weight 128.6 kg Marilia Orozco APRN.CNP 04/01/2024 2:48 PM Signed 04/01/2024 Patient presents with: Hospital F/U: [facility] 03/26-03/28 for pancreatitis SUBJECTIVE: This is a 78 year old that is here today for Above Complaints. HOSPITAL/ER FOLLOW UP: Reason for visit: abdominal pain, nausea, vomiting and dizziness Which facility: [facility] Date of visit: 03/26/2024-03/28/2024 Diagnosis: choledocholithiasis Testing done: CT abd/pel, blood work, MRCP, ERCP- stone completely removed and stent placed Treatment given: IV antibiotics Discharged on Cefdinir for UTI has been taking and tolerating without side effects. Has one day left of antibiotics. Able to tolerate regular diet. Normal BM since being home. Denies fevers, chills, abdominal pain, nausea, vomiting, constipation,diarrhea Reports did schedule his follow-up with GI but he reports he can not get in until June. Hospital records reviewed Transition Care Management (TCM) Initial Outreach PCP Update / Actionable Items HRTIC TCM Home Visit Referral Source of Stratification: TCM HUB Hospital Admission Status: Discharged Readmission Risk Score: n/a Patient's zip code: [address] Is zip code within program service area: No Patient meets program referral criteria: No Patient does not qualify for High Risk TCM Home Visit program due to: Patient's zip code is not located within program service area Readmission Risk Score does not meet criteria Disposition: Patient does not qualify for HRTIC, will provide TCM outreach follow-up for 30-days Patient Source: [facility]-Jjgc[facility] ([place]) Discharge Outreach Summary: Pt reports he is feeling well, caught up on sleep last night. States eating and drinking OK . No additional episodes of nausea, vomiting or abdominal pain , fevers, chills since dc. Started Omnicef as rx. Pt reports LVM for f/u with Dr. Nikky DSOUZA and has f/u with PCP office 04/01 Patient discharged from [facility] Discharge date: 03/28/24 Admitted for: Abdominal pain Readmission Risk: n/a Value-Based Contract: ACO Contact: Contact made with patient: Yes Hi, my name is Mitchel Walters RN and I am calling from the [facility] on behalf of your Primary Care Provider, Agnes Diaz MD. I understand you were recently in the hospital, so I am calling to check in with you to ensure you are feeling well now that you are home. May I ask you a few questions related to your hospital stay and well-being? Yes Spoke to: Patient Validation: Validated the person spoken to is actively involved in the patient's care. The patient was identified by Name and Date of . Symptoms: Are you feeling about the same, better or worse since leaving the hospital? Better Medications: Do you have any questions about taking your medications, including which medications you should be on, or do you need refills on your medications? No Medication Review: Partial mediation review completed, per patient preference Pt taking Omnicef as rx Discharge Instructions: Your Discharge Instructions / After Visit Summary (AVS) are important in guiding you through the recovery process. Do you have any questions related to your discharge instructions? No Home Care: Were you discharged with home care? No Equipment: Do you have all the necessary equipment and supplies needed at your home? Yes The patient verbalizes understanding the use of the equipment and supplies Social: We would like to make sure you have what you need so that your basics needs are met - including your personal safety, food, housing and medications. Would you like to speak with a social work child care team lead to help give you support for any of these needs? not assessed It can be normal to feel anxious or down during a time like this. Would you like to talk to a mental health professional about how you have been feeling? not assessed Action Taken: No needs verbalized. No action required. Follow-Up Appointment: [Appointment / TCM Follow-up within 14 days] I would like to help you schedule a hospital follow-up virtual or telephone visit with your PCP. This is a great way for you to connect with your provider to ensure you have safely transitioned home. If you are agreeable, I will send your request to a guide dog instructor who will contact and assist you with that appointment. This will give you an opportunity to ask any questions or address any concerns you may have with your PCP. Inform the patient that if they have any questions or concerns prior to that appointment, t (more content not included)... Normal [facility] Basic Metabolic Profile (BMP )on 03-31-2024 BUN Normal 7-18 [facility] [place] Comment on above: Result Comment: Canc elled via OM: Order cancelled - Patient discharged Performed By: #### L 100.0100, L500.2500 ####[facility] [place] [address] [place], [address] BUN/CRE Normal 10-20 [facility] [place] Comment on above: Result Comment: Canc elled via OM: Order cancelled - Patient discharged Performed By: #### L 100.0100, L500.2500 ####[facility] [place] [address] [place], [address] CA,Total Normal 8.5-10.1 [facility] [place] Comment on above: Result Comment: Canc elled via OM: Order cancelled - Patient discharged Performed By: #### L 100.0100, L500.2500 ####[facility] [place] [address] [place], [address] CL Normal 98-107 [facility] [place] Comment on above: Result Comment: Canc elled via OM: Order cancelled - Patient discharged Performed By: #### L 100.0100, L500.2500 ####[facility] [place] [address] [place], [address] CO2 Normal 21.0-32.0 [facility] [place] Comment on above: Result Comment: Canc elled via OM: Order cancelled - Patient discharged Performed By: #### L 100.0100, L500.2500 ####[facility] [place] [address] [place], [address] CREAT,SERUM Normal 0.70-1.30 [facility] [place] Comment on above: Result Comment: Canc elled via OM: Order cancelled - Patient discharged Performed By: #### L 100.0100, L500.2500 ####[facility] [place] [address] [place], [address] EST GFR Normal >60 [facility] [place] Comment on above: Result Comment: Canc elled via OM: Order cancelled - Patient discharged Performed By: #### L 100.0100, L500.2500 ####[facility] [place] [address] [place], [address] EST GFR - AA Normal >60 [facility] [place] Comment on above: Result Comment: Canc elled via OM: Order cancelled - Patient discharged Performed By: #### L 100.0100, L500.2500 ####[facility] [place] [address] [place], [address] GAP Normal 5-15 [facility] [place] Comment on above: Result Comment: Canc elled via OM: Order cancelled - Patient discharged Performed By: #### L 100.0100, L500.2500 ####[facility] [facility] [address] [place], [address] GLU Normal 74-106 [facility] Comment on above: Result Comment: Canc elled via OM: Order cancelled - Patient discharged Performed By: #### L 100.0100, L500.2500 ####[facility] [address] [place], [address] Potassium Normal 3.5-5.1 [facility] Comment on above: Result Comment: Canc elled via OM: Order cancelled - Patient discharged Performed By: #### L 100.0100, L500.2500 ####[facility] [address] [place], [address] Basic Metabolic Profile (BMP) Normal 136-145 [facility] Comment on above: Result Comment: Canc elled via OM: Order cancelled - Patient discharged Performed By: #### L 100.0100, L500.2500 ####[facility] [address] [place], [address] CBC W/Diff, Automatedon 12-0 Absolute Neut Normal 2.0-7.7 [facility] Comment on above: Result Comment: Canc elled via OM: Order cancelled - Patient discharged Performed By: #### L 100.0100, L500.2500 ####[facility] [address] [place], [address] HCT Normal 40-54 [facility] Comment on above: Result Comment: Canc elled via OM: Order cancelled - Patient discharged Performed By: #### L 100.0100, L500.2500 ####[facility] [address] [place], [address] HGB Normal 13.0-16.5 [facility] Comment on above: Result Comment: Canc elled via OM: Order cancelled - Patient discharged Performed By: #### L 100.0100, L500.2500 ####[facility] [address] [place], [address] MCH Normal 27.0-32.0 [facility] Comment on above: Result Comment: Canc elled via OM: Order cancelled - Patient discharged Performed By: #### L 100.0100, L500.2500 ####[facility] [address] [place], [address] MCHC Normal 32-36 [facility] Comment on above: Result Comment: Canc elled via OM: Order cancelled - Patient discharged Performed By: #### L 100.0100, L500.2500 ####[facility] [address] [place], [address] MCV Normal 80-94 [facility] Comment on above: Result Comment: Canc elled via OM: Order cancelled - Patient discharged Performed By: #### L 100.0100, L500.2500 ####[facility] [address] [place], [address] NEUT% Normal 47-70 [facility] Comment on above: Result Comment: Canc elled via OM: Order cancelled - Patient discharged Performed By: #### L 100.0100, L500.2500 ####[facility] [address] [place], [address] PLT Normal 150-450 [facility] Comment on above: Result Comment: Canc elled via OM: Order cancelled - Patient discharged Performed By: #### L 100.0100, L500.2500 ####[facility] [address] [place], [address] RBC Normal 4.6-6.2 [facility] Comment on above: Result Comment: Canc elled via OM: Order cancelled - Patient discharged Performed By: #### L 100.0100, L500.2500 ####[facility] [address] [place], [address] RDW CV Normal 11.6-14.6 [facility] Comment on above: Result Comment: Canc elled via OM: Order cancelled - Patient discharged Performed By: #### L 100.0100, L500.2500 ####[facility] [address] [place], [address] RDW SD Normal 35.1-43.9 [facility] Comment on above: Result Comment: Canc elled via OM: Order cancelled - Patient discharged Performed By: #### L 100.0100, L500.2500 ####[facility] [address] [place], [address] WBC Normal 4.4-11.0 [facility] Comment on above: Result Comment: Canc elled via OM: Order cancelled - Patient discharged Performed By: #### L 100.0100, L500.2500 ####[facility] [address] [place], [address] Basic Metabolic Profile (BMP )on 03-30-2024 BUN Normal 7-18 [facility] Comment on above: Result Comment: Canc elled via OM: Order cancelled - Patient discharged Performed By: #### L 500.2500, L100.0100 ####[facility] [address] [place], [address] BUN/CRE Normal 10-20 [facility] Comment on above: Result Comment: Canc elled via OM: Order cancelled - Patient discharged Performed By: #### L 500.2500, L100.0100 ####[facility] [address] [place], [address] CA,Total Normal 8.5-10.1 [facility] Comment on above: Result Comment: Canc elled via OM: Order cancelled - Patient discharged Performed By: #### L 500.2500, L100.0100 ####[facility] [address] [place], [address] CL Normal 98-107 [facility] Comment on above: Result Comment: Canc elled via OM: Order cancelled - Patient discharged Performed By: #### L 500.2500, L100.0100 ####[facility] [address] [place], [address] CO2 Normal 21.0-32.0 [facility] Comment on above: Result Comment: Canc elled via OM: Order cancelled - Patient discharged Performed By: #### L 500.2500, L100.0100 ####[facility] [address] [place], [address] CREAT,SERUM Normal 0.70-1.30 [facility] Comment on above: Result Comment: Canc elled via OM: Order cancelled - Patient discharged Performed By: #### L 500.2500, L100.0100 ####[facility] [address] [place], [address] EST GFR Normal >60 [facility] Comment on above: Result Comment: Canc elled via OM: Order cancelled - Patient discharged Performed By: #### L 500.2500, L100.0100 ####[facility] [address] [place], [address] EST GFR - AA Normal >60 [facility] Comment on above: Result Comment: Canc elled via OM: Order cancelled - Patient discharged Performed By: #### L 500.2500, L100.0100 ####[facility] [address] [place], [address] GAP Normal 5-15 [facility] Comment on above: Result Comment: Canc elled via OM: Order cancelled - Patient discharged Performed By: #### L 500.2500, L100.0100 ####[facility] [address] [place], [address] GLU Normal 74-106 [facility] Comment on above: Result Comment: Canc elled via OM: Order cancelled - Patient discharged Performed By: #### L 500.2500, L100.0100 ####[facility] [address] [place], [address] Potassium Normal 3.5-5.1 [facility] Comment on above: Result Comment: Canc elled via OM: Order cancelled - Patient discharged Performed By: #### L 500.2500, L100.0100 ####[facility] [address] [place], [address] Basic Metabolic Profile (BMP) Normal 136-145 [facility] Comment on above: Result Comment: Canc elled via OM: Order cancelled - Patient discharged Performed By: #### L 500.2500, L100.0100 ####[facility] [address] [place], [address] CBC W/Diff, Automatedon 11-3 0-2023 Absolute Neut Normal 2.0-7.7 [facility] Comment on above: Result Comment: Canc elled via OM: Order cancelled - Patient discharged Performed By: #### L 500.2500, L100.0100 ####[facility] [address] [place], [address] HCT Normal 40-54 [facility] Comment on above: Result Comment: Canc elled via OM: Order cancelled - Patient discharged Performed By: #### L 500.2500, L100.0100 ####[facility] [address] [place], [address] HGB Normal 13.0-16.5 [facility] Comment on above: Result Comment: Canc elled via OM: Order cancelled - Patient discharged Performed By: #### L 500.2500, L100.0100 ####[facility] [address] [place], [address] MCH Normal 27.0-32.0 [facility] Comment on above: Result Comment: Canc elled via OM: Order cancelled - Patient discharged Performed By: #### L 500.2500, L100.0100 ####[facility] [address] [place], [address] MCHC Normal 32-36 [facility] Comment on above: Result Comment: Canc elled via OM: Order cancelled - Patient discharged Performed By: #### L 500.2500, L100.0100 ####[facility] [address] [place], [address] MCV Normal 80-94 [facility] Comment on above: Result Comment: Canc elled via OM: Order cancelled - Patient discharged Performed By: #### L 500.2500, L100.0100 ####[facility] [address] [place], [address] NEUT% Normal 47-70 [facility] Comment on above: Result Comment: Canc elled via OM: Order cancelled - Patient discharged Performed By: #### L 500.2500, L100.0100 ####[facility] [address] [place], [address] PLT Normal 150-450 [facility] Comment on above: Result Comment: Canc elled via OM: Order cancelled - Patient discharged Performed By: #### L 500.2500, L100.0100 ####[facility] [address] [place], [address] RBC Normal 4.6-6.2 [facility] Comment on above: Result Comment: Canc elled via OM: Order cancelled - Patient discharged Performed By: #### L 500.2500, L100.0100 ####[facility] [address] [place], [address] RDW CV Normal 11.6-14.6 [facility] Comment on above: Result Comment: Canc elled via OM: Order cancelled - Patient discharged Performed By: #### L 500.2500, L100.0100 ####[facility] [address] [place], [address] RDW SD Normal 35.1-43.9 [facility] Comment on above: Result Comment: Canc elled via OM: Order cancelled - Patient discharged Performed By: #### L 500.2500, L100.0100 ####[facility] [address] [place], [address] WBC Normal 4.4-11.0 [facility] Comment on above: Result Comment: Canc elled via OM: Order cancelled - Patient discharged Performed By: #### L 500.2500, L100.0100 ####[facility] [address] [place], [address] Basic Metabolic Profile (BMP )on 03-29-2024 BUN Normal 7-18 [facility] Comment on above: Result Comment: Canc elled via OM: Order cancelled - Patient discharged Performed By: #### L 500.2500, L100.0100 ####[facility] [address] [place], [address] BUN/CRE Normal 10-20 [facility] Comment on above: Result Comment: Canc elled via OM: Order cancelled - Patient discharged Performed By: #### L 500.2500, L100.0100 ####[facility] [address] [place], [address] CA,Total Normal 8.5-10.1 [facility] Comment on above: Result Comment: Canc elled via OM: Order cancelled - Patient discharged Performed By: #### L 500.2500, L100.0100 ####[facility] [address] [place], [address] CL Normal 98-107 [facility] Comment on above: Result Comment: Canc elled via OM: Order cancelled - Patient discharged Performed By: #### L 500.2500, L100.0100 ####[facility] [address] [place], [address] CO2 Normal 21.0-32.0 [facility] Comment on above: Result Comment: Canc elled via OM: Order cancelled - Patient discharged Performed By: #### L 500.2500, L100.0100 ####[facility] [address] [place], [address] CREAT,SERUM Normal 0.70-1.30 [facility] Comment on above: Result Comment: Canc elled via OM: Order cancelled - Patient discharged Performed By: #### L 500.2500, L100.0100 ####[facility] [address] [place], [address] EST GFR Normal >60 [facility] Comment on above: Result Comment: Canc elled via OM: Order cancelled - Patient discharged Performed By: #### L 500.2500, L100.0100 ####[facility] [address] [place], [address] EST GFR - AA Normal >60 [facility] Comment on above: Result Comment: Canc elled via OM: Order cancelled - Patient discharged Performed By: #### L 500.2500, L100.0100 ####[facility] [address] [place], [address] GAP Normal 5-15 [facility] Comment on above: Result Comment: Canc elled via OM: Order cancelled - Patient discharged Performed By: #### L 500.2500, L100.0100 ####[facility] [address] [place], [address] GLU Normal 74-106 [facility] Comment on above: Result Comment: Canc elled via OM: Order cancelled - Patient discharged Performed By: #### L 500.2500, L100.0100 ####[facility] [address] [place], [address] Potassium Normal 3.5-5.1 [facility] Comment on above: Result Comment: Canc elled via OM: Order cancelled - Patient discharged Performed By: #### L 500.2500, L100.0100 ####[facility] [address] [place], [address] Basic Metabolic Profile (BMP) Normal 136-145 [facility] Comment on above: Result Comment: Canc elled via OM: Order cancelled - Patient discharged Performed By: #### L 500.2500, L100.0100 ####[facility] [address] [place], [address] CBC W/Diff, Automatedon 11-2 Absolute Neut Normal 2.0-7.7 [facility] Comment on above: Result Comment: Canc elled via OM: Order cancelled - Patient discharged Performed By: #### L 500.2500, L100.0100 ####[facility] [address] [place], [address] HCT Normal 40-54 [facility] Comment on above: Result Comment: Canc elled via OM: Order cancelled - Patient discharged Performed By: #### L 500.2500, L100.0100 ####[facility] [address] [place], [address] HGB Normal 13.0-16.5 [facility] Comment on above: Result Comment: Canc elled via OM: Order cancelled - Patient discharged Performed By: #### L 500.2500, L100.0100 ####[facility] [address] [place], [address] MCH Normal 27.0-32.0 [facility] Comment on above: Result Comment: Canc elled via OM: Order cancelled - Patient discharged Performed By: #### L 500.2500, L100.0100 ####[facility] [address] [place], [address] MCHC Normal 32-36 [facility] Comment on above: Result Comment: Canc elled via OM: Order cancelled - Patient discharged Performed By: #### L 500.2500, L100.0100 ####[facility] [address] [place], [address] MCV Normal 80-94 [facility] Comment on above: Result Comment: Canc elled via OM: Order cancelled - Patient discharged Performed By: #### L 500.2500, L100.0100 ####[facility] [address] [place], [address] NEUT% Normal 47-70 [facility] Comment on above: Result Comment: Canc elled via OM: Order cancelled - Patient discharged Performed By: #### L 500.2500, L100.0100 ####[facility] [address] [place], [address] PLT Normal 150-450 [facility] Comment on above: Result Comment: Canc elled via OM: Order cancelled - Patient discharged Performed By: #### L 500.2500, L100.0100 ####[facility] [address] [place], [address] RBC Normal 4.6-6.2 [facility] Comment on above: Result Comment: Canc elled via OM: Order cancelled - Patient discharged Performed By: #### L 500.2500, L100.0100 ####[facility] [address] [place], [address] RDW CV Normal 11.6-14.6 [facility] Comment on above: Result Comment: Canc elled via OM: Order cancelled - Patient discharged Performed By: #### L 500.2500, L100.0100 ####[facility] [address] [place], [address] RDW SD Normal 35.1-43.9 [facility] Comment on above: Result Comment: Canc elled via OM: Order cancelled - Patient discharged Performed By: #### L 500.2500, L100.0100 ####[facility] [address] [place], [address] WBC Normal 4.4-11.0 [facility] Comment on above: Result Comment: Canc elled via OM: Order cancelled - Patient discharged Performed By: #### L 500.2500, L100.0100 ####[facility] [address] [place], [address] Absolute neutrophil countOrd ered By: Altagracia Lo on 03-28-2024 Neutrophils (Bld) [#/Vol] 8.8 10*3/uL High 2.0-7.7 [facility] Basic Metabolic Profile (BMP )on 03-28-2024 BUN/CRE 16.3 RATIO Normal 10-20 [facility] Comment on above: Performed By: #### L 100.0100, L500.2500 ####[facility] [address] [place], [address] CA,Total 8.5 mg/dL Normal 8.5-10.1 [facility] Comment on above: Performed By: #### L 100.0100, L500.2500 ####[facility] [address] [place], [address] Chloride [Moles/Vol] 106 mmol/L Normal 98-107 [facility] Comment on above: Performed By: #### L 100.0100, L500.2500 ####[facility] [address] [place], [address] CO2 [Moles/Vol] 25.0 mmol/L Normal 21.0-32.0 [facility] Comment on above: Performed By: #### L 100.0100, L500.2500 ####[facility] [address] [place], [address] Creatinine [Mass/Vol] 1.47 mg/dL High 0.70-1.30 [facility] Comment on above: Result Comment: The validity of the calculated GFR GFRAA in patients over70 years has not been determined. Clinical correlation isessential. Performed By: #### L 100.0100, L500.2500 ####[facility] [address] [place], [address] ECRCL 55.28 ml/min Normal [facility] Comment on above: Performed By: #### L 100.0100, L500.2500 ####[facility] [address] [place], [address] EST GFR - AA 59 mL/min Low >60 [facility] Comment on above: Result Comment: Afri can [place]ian GFR Calc Performed By: #### L 100.0100, L500.2500 ####[facility] [address] [place], [address] GAP 7 Normal 5-15 [facility] Comment on above: Performed By: #### L 100.0100, L500.2500 ####[facility] [address] [place], [address] GFR/1.73 sq M.predicted among non-blacks MDRD (S/P/Bld) [Vol rate/Area] 49 mL/min/{1.73_m2} Low >60 [facility] Comment on above: Result Comment: Non- GFR Calc Performed By: #### L 100.0100, L500.2500 ####[facility] [address] [place], [address] Glucose [Mass/Vol] 142 mg/dL High 74-106 [facility] Comment on above: Result Comment: Fast ing Glucose result greater than or equal to 126 mg/dLsuggests DIABETES MELLITUS per A.D.A. criteria. Performed By: #### L 100.0100, L500.2500 ####[facility] [address] [place], [address] Potassium [Moles/Vol] 4.1 mmol/L Normal 3.5-5.1 [facility] Comment on above: Performed By: #### L 100.0100, L500.2500 ####[facility] [address] [place], [address] Sodium [Moles/Vol] 138 mmol/L Normal 136-145 [facility] Comment on above: Performed By: #### L 100.0100, L500.2500 ####[facility] [address] [place], [address] Urea nitrogen [Mass/Vol] 24 mg/dL High 7-18 [facility] Comment on above: Performed By: #### L 100.0100, L500.2500 ####[facility] [address] [place], [address] Basophil percentageOrdered B y: Altagracia Lo on 03-28-2024 Basophils/100 WBC (Bld) 0.1 % 0-1 [facility] Blood urea nitrogen (BUN)/cr eatinine ratioOrdered By: Altagracia Lo on 03-28-2024 Urea nitrogen/Creatinine [Mass ratio] 16.3 mg/mg 10-20 [facility] CBC W/Diff, Automatedon - Absolute Lymph 1.08 X10 3/uL Normal 0.83-4.51 [facility] Comment on above: Performed By: #### L 100.0100, L500.2500 ####[facility] [address] [place], [address] Absolute Neut 8.8 X10 3/uL High 2.0-7.7 [facility] Comment on above: Performed By: #### L 100.0100, L500.2500 ####[facility] [address] [place], [address] Basophils/100 WBC (Bld) 0.1 % Normal 0-1 [facility] Comment on above: Performed By: #### L 100.0100, L500.2500 ####[facility] [address] [place], [address] Eosinophils/100 WBC (Bld) 0.0 % Normal 0-5 [facility] Comment on above: Performed By: #### L 100.0100, L500.2500 ####[facility] [address] [place], [address] Erythrocyte distribution width (RBC) [Ratio] 13.4 % Normal 11.6-14.6 [facility] Comment on above: Performed By: #### L 100.0100, L500.2500 ####[facility] [address] [place], [address] Hematocrit (Bld) [Volume fraction] 39.3 % Low 40-54 [facility] Comment on above: Performed By: #### L 100.0100, L500.2500 ####[facility] [address] [place], [address] Hemoglobin (Bld) [Mass/Vol] 13.3 g/dL Normal 13.0-16.5 [facility] Comment on above: Performed By: #### L 100.0100, L500.2500 ####[facility] [address] [place], [address] IG% 0.600 Normal 0.0-0.9 [facility] Comment on above: Result Comment: IG% - Immature Granulocytes (promyelocytes, myelocytes andmetamyelocytes) > 1% indicates that a LEFT SHIFT is Present. Performed By: #### L 100.0100, L500.2500 ####[facility] [address] [place], [address] Lymphocytes/100 WBC (Bld) 10.3 % Low 19-41 [facility] Comment on above: Performed By: #### L 100.0100, L500.2500 ####[facility] [address] [place], [address] MCH (RBC) [Entitic mass] 31.7 pg Normal 27.0-32.0 [facility] [facility] Comment on above: Performed By: #### L 100.0100, L500.2500 ####[facility] [address] [place], [address] MCHC (RBC) [Mass/Vol] 33.8 g/dL Normal 32-36 [facility] Comment on above: Performed By: #### L 100.0100, L500.2500 ####[facility] [address] [place], [address] MCV (RBC) [Entitic vol] 93.6 fL Normal 80-94 [facility] Comment on above: Performed By: #### L 100.0100, L500.2500 ####[facility] [address] [place], [address] Monocytes/100 WBC (Bld) 5.2 % Normal 0-10 [facility] Comment on above: Performed By: #### L 100.0100, L500.2500 ####[facility] [address] [place], [address] Neutrophils/100 WBC (Bld) 83.8 % High 47-70 [facility] Comment on above: Performed By: #### L 100.0100, L500.2500 ####[facility] [address] [place], [address] Nucleated RBC (Bld) [#/Vol] 0 10*3/uL Normal 0-5 [facility] Comment on above: Performed By: #### L 100.0100, L500.2500 ####[facility] [address] [place], [address] Platelet mean volume (Bld) [Entitic vol] 10.1 fL Normal 6.2-12.0 [facility] Comment on above: Performed By: #### L 100.0100, L500.2500 ####[facility] [address] [place], [address] Platelets (Bld) [#/Vol] 210 10*3/uL Normal 150-450 [facility] Comment on above: Performed By: #### L 100.0100, L500.2500 ####[facility] [address] [place], [address] RBC (Bld) [#/Vol] 4.20 10*6/uL Low 4.6-6.2 [facility] Comment on above: Performed By: #### L 100.0100, L500.2500 ####[facility] [address] [place], [address] RDW SD 45.4 fl High 35.1-43.9 [facility] Comment on above: Performed By: #### L 100.0100, L500.2500 ####[facility] [address] [place], [address] WBC (Bld) [#/Vol] 10.5 10*3/uL Normal 4.4-11.0 [facility] Comment on above: Performed By: #### L 100.0100, L500.2500 ####[facility] [address] [place], [address] Carbohydrate AG 19-9on 03-28 CA 19-9 < 2 Normal 0-35 [facility] Comment on above: Result Comment: [employer] Electrochemiluminescence Immunoassay(ECLIA)Values obtained with different assay methods or kits cannotbe used interchangeably. Results cannot be interpreted asabsolute evidence of the presence or absence of malignantdisease.Performed at: [address] [place], [place] [id number] Director: Donell Erazo PhD, Phone: [phone] Performed By: #### L 8688.8745 ####[facility] [address] [place], [address] Carbon dioxide measurementOr dered By: Altagracia Lo on 03-28-2024 CO2 [Moles/Vol] 25.0 mmol/L 21.0-32.0 [facility] Chloride measurementOrdered By: Altagracia Lo on 03-28-2024 Chloride [Moles/Vol] 106 mmol/L 98-107 [facility] Consultation - Surgicalon Consultation - Surgical Normal [facility] Discharge Instructionon 03-02 Discharge Instruction Normal [facility] Eosinophil percentageOrdered By: Altagracia Lo on 03-28-2024 Eosinophils/100 WBC (Bld) 0.0 % 0-5 [facility] Erythrocyte distribution wid th ratioOrdered By: Altagracia Lo on 03-28-2024 Erythrocyte distribution width (RBC) [Ratio] 13.4 % 11.6-14.6 [facility] Erythrocyte distribution wid th standard deviationOrdered By: Altagracia Lo on 03-28-2024 Erythrocyte distribution width (RBC) [Entitic vol] 45.4 fL High 35.1-43.9 [facility] Estimated glomerular filtrat ion rate (GFR) AmericanOrdered By: Altagracia Lo on 03-28-2024 Estimated GFR (MDRD) Amer 59 mL/min Low >60 [facility] Comment on above: GFR Calc Estimation of creatinine edgardo aranceOrdered By: Altagracia Lo on 03-28-2024 Estimated Creatinine Clearance Calc 55.28 ml/min [facility] Glomerular filtration rate ( GFR) estimationOrdered By: Altagracia Lo on 03-28-2024 Estimated GFR (MDRD) Non-Af Amer 49 mL/min Low >60 [facility] Comment on above: Non- GFR Calc Glucose measurementOrdered B y: Altagracia Lo on 03-28-2024 Glucose [Mass/Vol] 142 mg/dL High 74-106 [facility] Comment on above: Fasting Glucose resu lt greater than or equal to 126 mg/dL suggests DIABETES MELLITUS per A.D.A. criteria. Hematocrit Auto (Bld) [Volum e fraction]Ordered By: Altagracia Lo on 03-28-2024 Hematocrit (Bld) [Volume fraction] 39.3 % Low 40-54 [facility] Hemoglobin measurementOrdere d By: Altagracia Lo on 03-28-2024 Hemoglobin (Bld) [Mass/Vol] 13.3 g/dL 13.0-16.5 [facility] Immature granulocytes/100 WB C Auto (Bld)Ordered By: Altagracia Lo on 03-28-2024 Immature granulocytes/100 WBC (Bld) 0.600 % 0.0-0.9 [facility] Comment on above: IG% - Immature Granu locytes (promyelocytes, myelocytes and metamyelocytes) > 1% indicates that a LEFT SHIFT is Present. Lymphocytes Auto (Unsp spec) [#/Vol]Ordered By: Altagracia Lo on 03-28-2024 Lymphocytes (Bld) [#/Vol] 1.08 10*3/uL 0.83-4.51 [facility] Lymphocytes/100 WBC Auto (Un sp spec)Ordered By: Altagracia Lo on 03-28-2024 Lymphocytes/100 WBC (Bld) 10.3 % Low 19-41 [facility] MCV (mean corpuscular volume ) determinationOrdered By: Altagracia Lo on 03-28-2024 MCV (RBC) [Entitic vol] 93.6 fL 80-94 [facility] Mean corpuscular hemoglobin (MCH) determinationOrdered By: Altagracia Lo on 03-28-2024 MCH (RBC) [Entitic mass] 31.7 pg 27.0-32.0 [facility] Mean corpuscular hemoglobin concentration (MCHC) determinationOrdered By: Altagracia Lo on 03-28-2024 MCHC (RBC) [Mass/Vol] 33.8 g/dL 32-36 [facility] Mean platelet volume determi nationOrdered By: Altagracia Lo on 03-28-2024 Platelet mean volume (Bld) [Entitic vol] 10.1 fL 6.2-12.0 [facility] Monocyte percentageOrdered B y: Altagracia Valezhao on 03-28-2024 Monocytes/100 WBC (Bld) 5.2 % 0-10 [facility] Neutrophil percentageOrdered By: Altagracia Valezhao on 03-28-2024 Neutrophils/100 WBC (Bld) 83.8 % High 47-70 [facility] Nucleated red blood cell per centageOrdered By: Altagracia Wally on 03-28-2024 Nucleated RBC/100 WBC (Bld) [Ratio] 0 % 0-5 [facility] Platelet countOrdered By: Na na Wally on 03-28-2024 Platelets (Bld) [#/Vol] 210 10*3/uL 150-450 [facility] Potassium measurementOrdered By: Altagracianiki Lo on 03-28-2024 Potassium [Moles/Vol] 4.1 mmol/L 3.5-5.1 [facility] RBC Auto (Bld) [#/Vol]Ordere d By: Altagracia Wally on 03-28-2024 RBC (Bld) [#/Vol] 4.20 10*6/uL Low 4.6-6.2 [facility] Serum anion gap measurementO rdered By: Altagracia Wally on 03-28-2024 Anion gap [Moles/Vol] 7 mmol/L 5-15 [facility] Serum or plasma calcium anson urement (mass/volume)Ordered By: Altagracianiki Lo on 03-28-2024 Calcium [Mass/Vol] 8.5 mg/dL 8.5-10.1 [facility] Serum or plasma creatinine m easurement (mass/volume)Ordered By: Altagracia Lo on 03-28-2024 Creatinine [Mass/Vol] 1.47 mg/dL High 0.70-1.30 [facility] Comment on above: The validity of the calculated GFR & GFRAA in patients over 70 years has not been determined. Clinical correlation is essential. Serum or plasma urea nitroge n measurement (mass/volume)Ordered By: Altagracianiki Lo on 03-28-2024 Urea nitrogen [Mass/Vol] 24 mg/dL High 7-18 [facility] Sodium levelOrdered By: Altagracia Lo on 03-28-2024 Sodium [Moles/Vol] 138 mmol/L 136-145 [facility] White blood cell (WBC) count Ordered By: Altagracia Lo on 03-28-2024 WBC (Bld) [#/Vol] 10.5 10*3/uL 4.4-11.0 [facility] Albumin to globulin ratioOrd ered By: Andrea Serrano on 03-27-2024 Albumin/Globulin [Mass ratio] 0.8 {ratio} Low 0.9-2.4 [facility] Bilirubin, totalOrdered By: Andrea Serrano on 03-27-2024 Bilirubin [Mass/Vol] 1.50 mg/dL High 0.20-1.00 [facility] Comment on above: For patients on eltr ombopag therapy, use of Dimension [employer] TBIL is not recommended. CA 19-9 agOrdered By: Vaishali Sher on 03-27-2024 CA 19-9 Antigen < 2 U/mL 0-35 [facility] Comment on above: [employer] El ectrochemiluminescence Immunoassay(ECLIA)Values obtained with different assay methods or kits cannotbe used interchangeably. Results cannot be interpreted asabsolute evidence of the presence or absence of malignantdisease.Performed at: [facility] [place] [id number] Director: Donell Erazo PhD, Phone: [phone] CBC-Complete Blood Cnt No Di ffon 03-27-2024 Erythrocyte distribution width (RBC) [Ratio] 13.8 % Normal 11.6-14.6 [facility] Comment on above: Performed By: #### L 100.0500, L500.4050 ####[facility] [address] [facility] [place], [place], [phone] Hematocrit (Bld) [Volume fraction] 38.8 % Low 40-54 [facility] Comment on above: Performed By: #### L 100.0500, L500.4050 ####[facility] [address] [facility] [place], [address] Hemoglobin (Bld) [Mass/Vol] 12.7 g/dL Low 13.0-16.5 [facility] Comment on above: Performed By: #### L 100.0500, L500.4050 ####[facility] [address] [place], [address] MCH (RBC) [Entitic mass] 31.1 pg Normal 27.0-32.0 [facility] Comment on above: Performed By: #### L 100.0500, L500.4050 ####[facility] [address] [place], [address] MCHC (RBC) [Mass/Vol] 32.7 g/dL Normal 32-36 [facility] Comment on above: Performed By: #### L 100.0500, L500.4050 ####[facility] [address] [place], [address] MCV (RBC) [Entitic vol] 95.1 fL High 80-94 [facility] Comment on above: Performed By: #### L 100.0500, L500.4050 ####[facility] [address] [place], [address] Platelet mean volume (Bld) [Entitic vol] 9.4 fL Normal 6.2-12.0 [facility] Comment on above: Performed By: #### L 100.0500, L500.4050 ####[facility] [address] [place], [address] Platelets (Bld) [#/Vol] 174 10*3/uL Normal 150-450 [facility] Comment on above: Performed By: #### L 100.0500, L500.4050 ####[facility] [address] [place], [address] RBC (Bld) [#/Vol] 4.08 10*6/uL Low 4.6-6.2 [facility] Comment on above: Performed By: #### L 100.0500, L500.4050 ####[facility] [address], [address] RDW SD 48.2 fl High 35.1-43.9 [facility] Comment on above: Performed By: #### L 100.0500, L500.4050 ####[facility] [address] [place], [address] WBC (Bld) [#/Vol] 9.1 10*3/uL Normal 4.4-11.0 [facility] Comment on above: Performed By: #### L 100.0500, L500.4050 ####[facility] [address] [place], [address] Comprehensive Metabolic Prof ilon 03-27-2024 Albumin [Mass/Vol] 2.6 g/dL Low 3.2-5.0 [facility] Comment on above: Performed By: #### L 100.0500, L500.4050 ####[facility] [address] [place], [address] Albumin/Globulin [Mass ratio] 0.8 {ratio} Low 0.9-2.4 [facility] Comment on above: Performed By: #### L 100.0500, L500.4050 ####[facility] [address] [place], [address] ALK P 107 U/L Normal 45-117 [facility] Comment on above: Performed By: #### L 100.0500, L500.4050 ####[facility] [address] [place], [address] ALT [Catalytic activity/Vol] 228 U/L High 16-61 [facility] Comment on above: Performed By: #### L 100.0500, L500.4050 ####[facility] [address] [place], [address] AST [Catalytic activity/Vol] 128 U/L High 15-37 [facility] Comment on above: Performed By: #### L 100.0500, L500.4050 ####[facility] [address] [place], [address] Bilirubin [Mass/Vol] 1.50 mg/dL High 0.20-1.00 [facility] Comment on above: Result Comment: For patients on eltrombopag therapy, use of Dimension [employer] TBIL is not recommended. Performed By: #### L 100.0500, L500.4050 ####[facility] [address] [place], [address] BUN/CRE 15.0 RATIO Normal 10-20 [facility] Comment on above: Performed By: #### L 100.0500, L500.4050 ####[facility] [address] [place], [address] CA,Total 8.2 mg/dL Low 8.5-10.1 [facility] Comment on above: Performed By: #### L 100.0500, L500.4050 ####[facility] [address] [place], [address] Chloride [Moles/Vol] 107 mmol/L Normal 98-107 [facility] Comment on above: Performed By: #### L 100.0500, L500.4050 ####[facility] [address] [place], [address] CO2 [Moles/Vol] 27.0 mmol/L Normal 21.0-32.0 [facility] Comment on above: Performed By: #### L 100.0500, L500.4050 ####[facility] [address] [place], [address] Creatinine [Mass/Vol] 1.60 mg/dL High 0.70-1.30 [facility] Comment on above: Result Comment: The validity of the calculated GFR GFRAA in patients over70 years has not been determined. Clinical correlation isessential. Performed By: #### L 100.0500, L500.4050 ####[facility] [address] [place], [address] ECRCL 50.79 ml/min Normal [facility] Comment on above: Performed By: #### L 100.0500, L500.4050 ####[facility] [address] [place], [address] EST GFR - AA 54 mL/min Low >60 [facility] Comment on above: Result Comment: Afri can [place]ian GFR Calc Performed By: #### L 100.0500, L500.4050 ####[facility] [address] [place], [address] GAP 5 Normal 5-15 [facility] Comment on above: Performed By: #### L 100.0500, L500.4050 ####[facility] [address] [place], [address] GFR/1.73 sq M.predicted among non-blacks MDRD (S/P/Bld) [Vol rate/Area] 45 mL/min/{1.73_m2} Low >60 [facility] Comment on above: Result Comment: Non- GFR Calc Performed By: #### L 100.0500, L500.4050 ####[facility] [address] [place], [address] Globulin (S) [Mass/Vol] 3.3 g/dL Normal 2.2-4.2 [facility] Comment on above: Performed By: #### L 100.0500, L500.4050 ####[facility] [address] [place], [address] Glucose [Mass/Vol] 126 mg/dL High 74-106 [facility] Comment on above: Result Comment: Fast ing Glucose result greater than or equal to 126 mg/dLsuggests DIABETES MELLITUS per A.D.A. criteria. Performed By: #### L 100.0500, L500.4050 ####[facility] [address] [place], [address] Potassium [Moles/Vol] 3.6 mmol/L Normal 3.5-5.1 [facility] Comment on above: Performed By: #### L 100.0500, L500.4050 ####[facility] [address] [place], [address] Sodium [Moles/Vol] 139 mmol/L Normal 136-145 [facility] Comment on above: Performed By: #### L 100.0500, L500.4050 ####[facility] [address] [place], [address] T PROT 5.9 g/dL Low 6.4-8.2 [facility] Comment on above: Performed By: #### L 100.0500, L500.4050 ####[facility] [address] [place], [address] Urea nitrogen [Mass/Vol] 24 mg/dL High 7-18 [facility] Comment on above: Performed By: #### L 100.0500, L500.4050 ####[facility] [address] [place], [address] ERCP Biliary/Pancreason 03-02 ERCP Biliary/Pancreas Normal [facility] ERCP Reporton 03-27-2024 ERCP Report Normal [facility] Laboratory - Chemistry and C hemistry - challengeOrdered By: Andrea Serrano on 03-27-2024 AST [Catalytic activity/Vol] 128 U/L High 15-37 [facility] MR/POSTOP.ANEon 03-27-2024 MR/POSTOP.ANE Normal [facility] MR/YOLAFNKT9up 03-27-2024 MR/POSTOPAN2 Normal [facility] Magnesiumon 03-27-2024 Magnesium [Mass/Vol] 2.6 mg/dL Normal 1.6-2.6 [facility] Comment on above: Performed By: #### L 501.5200 ####[facility] [address] [place], [place], [id number] Magnesium measurementOrdered By: Altagracia Lo on 03-27-2024 Magnesium [Mass/Vol] 2.6 mg/dL 1.6-2.6 [facility] Serum globulin measurementOr dered By: Andrea Serrano on 03-27-2024 Globulin (S) [Mass/Vol] 3.3 g/dL 2.2-4.2 [facility] Serum or plasma alanine wilde otransferase (ALT) measurementOrdered By: Andrea Serrano on 03-27-2024 ALT [Catalytic activity/Vol] 228 U/L High 16-61 [facility] Serum or plasma albumin anson urement (mass/volume)Ordered By: Andrea Serrano on 03-27-2024 Albumin [Mass/Vol] 2.6 g/dL Low 3.2-5.0 [facility] Serum or plasma alkaline rui sphatase measurementOrdered By: Andrea Serrano on 03-27-2024 ALP [Catalytic activity/Vol] 107 U/L 45-117 [facility] Total proteinOrdered By: Marianne Serrano on 03-27-2024 Protein [Mass/Vol] 5.9 g/dL Low 6.4-8.2 [facility] Abdomen/Pelvis W IV Cont ONL Yon 03-26-2024 Abdomen/Pelvis W IV Cont ONLY Normal [facility] Basic Metabolic Profile (BMP )on 03-26-2024 BUN/CRE 14.4 RATIO Normal 10-20 [facility] Comment on above: Performed By: #### L 300.4310, L500.2500, L300.3900, L501.2450, L501.5200, L500.3400, L100.0100 ####[facility] [address] [place], [place], [id number] CA,Total 8.9 mg/dL Normal 8.5-10.1 [facility] Comment on above: Performed By: #### L 300.4310, L500.2500, L300.3900, L501.2450, L501.5200, L500.3400, L100.0100 ####[facility] [address] [place], [address] Chloride [Moles/Vol] 104 mmol/L Normal 98-107 [facility] Comment on above: Performed By: #### L 300.4310, L500.2500, L300.3900, L501.2450, L501.5200, L500.3400, L100.0100 ####[facility] [address] [place], [address] CO2 [Moles/Vol] 26.0 mmol/L Normal 21.0-32.0 [facility] Comment on above: Performed By: #### L 300.4310, L500.2500, L300.3900, L501.2450, L501.5200, L500.3400, L100.0100 ####[facility] [address] [place], [address] Creatinine [Mass/Vol] 1.74 mg/dL High 0.70-1.30 [facility] Comment on above: Result Comment: The validity of the calculated GFR GFRAA in patients over70 years has not been determined. Clinical correlation isessential. Performed By: #### L 300.4310, L500.2500, L300.3900, L501.2450, L501.5200, L500.3400, L100.0100 ####[facility] [address] [place], [address] ECRCL 46.70 ml/min Normal [facility] Comment on above: Performed By: #### L 300.4310, L500.2500, L300.3900, L501.2450, L501.5200, L500.3400, L100.0100 ####[facility] [address] [place], [address] EST GFR - AA 49 mL/min Low >60 [facility] Comment on above: Result Comment: Afri can [place] GFR Calc Performed By: #### L 300.4310, L500.2500, L300.3900, L501.2450, L501.5200, L500.3400, L100.0100 ####[facility] [address] [place], [address] GAP 9 Normal 5-15 [facility] Comment on above: Performed By: #### L 300.4310, L500.2500, L300.3900, L501.2450, L501.5200, L500.3400, L100.0100 ####[facility] [address] [place], [place], [id number] GFR/1.73 sq M.predicted among non-blacks MDRD (S/P/Bld) [Vol rate/Area] 40 mL/min/{1.73_m2} Low >60 [facility] Comment on above: Result Comment: Non- GFR Calc Performed By: #### L 300.4310, L500.2500, L300.3900, L501.2450, L501.5200, L500.3400, L100.0100 ####[facility] [address] [place], [address] Glucose [Mass/Vol] 163 mg/dL High 74-106 [facility] Comment on above: Result Comment: Fast ing Glucose result greater than or equal to 126 mg/dLsuggests DIABETES MELLITUS per A.D.A. criteria. Performed By: #### L 300.4310, L500.2500, L300.3900, L501.2450, L501.5200, L500.3400, L100.0100 ####[facility] [address] [place], [address] Potassium [Moles/Vol] 3.7 mmol/L Normal 3.5-5.1 [facility] Comment on above: Performed By: #### L 300.4310, L500.2500, L300.3900, L501.2450, L501.5200, L500.3400, L100.0100 ####[facility] [address] [place], [address] Sodium [Moles/Vol] 139 mmol/L Normal 136-145 [facility] Comment on above: Performed By: #### L 300.4310, L500.2500, L300.3900, L501.2450, L501.5200, L500.3400, L100.0100 ####[facility] [address] [place], [address] Urea nitrogen [Mass/Vol] 25 mg/dL High 7-18 [facility] Comment on above: Performed By: #### L 300.4310, L500.2500, L300.3900, L501.2450, L501.5200, L500.3400, L100.0100 ####[facility] [address] [place], [place], [id number] Bilirubin Test strip Ql (U)O rdered By: Thomas Domínguez on 03-26-2024 Bilirubin Ql (U) Negative Negative [facility] Bilirubin directOrdered By: Thomas Domínguez on 03-26-2024 Bilirubin.direct [Mass/Vol] 2.57 mg/dL High 0.00-0.30 [facility] Comment on above: Performed By: #### L 300.4310, L500.2500, L300.3900, L501.2450, L501.5200, L500.3400, L100.0100 ####[facility] [address] [place], [place], [address] Brain/Head without Contrasto n 03-26-2024 Brain/Head without Contrast Normal [facility] CBC W/Diff, Automatedon 11-2 Absolute Lymph 0.49 X10 3/uL Low 0.83-4.51 [facility] Comment on above: Performed By: #### L 300.4310, L500.2500, L300.3900, L501.2450, L501.5200, L500.3400, L100.0100 ####[facility] [address] [place], [address] Absolute Neut 11.5 X10 3/uL High 2.0-7.7 [facility] [facility] Comment on above: Performed By: #### L 300.4310, L500.2500, L300.3900, L501.2450, L501.5200, L500.3400, L100.0100 ####[facility] [address] [place], [address] Basophils/100 WBC (Bld) 0.2 % Normal 0-1 [facility] Comment on above: Performed By: #### L 300.4310, L500.2500, L300.3900, L501.2450, L501.5200, L500.3400, L100.0100 ####[facility] [address] [place], [address] Eosinophils/100 WBC (Bld) 0.1 % Normal 0-5 [facility] Comment on above: Performed By: #### L 300.4310, L500.2500, L300.3900, L501.2450, L501.5200, L500.3400, L100.0100 ####[facility] [address] [place], [address] Erythrocyte distribution width (RBC) [Ratio] 13.8 % Normal 11.6-14.6 [facility] Comment on above: Performed By: #### L 300.4310, L500.2500, L300.3900, L501.2450, L501.5200, L500.3400, L100.0100 ####[facility] [address] [place], [address] Hematocrit (Bld) [Volume fraction] 42.2 % Normal 40-54 [facility] Comment on above: Performed By: #### L 300.4310, L500.2500, L300.3900, L501.2450, L501.5200, L500.3400, L100.0100 ####[facility] [address] [place], [address] Hemoglobin (Bld) [Mass/Vol] 14.4 g/dL Normal 13.0-16.5 [facility] Comment on above: Performed By: #### L 300.4310, L500.2500, L300.3900, L501.2450, L501.5200, L500.3400, L100.0100 ####[facility] [address] [place], [address] IG% 0.800 Normal 0.0-0.9 [facility] Comment on above: Result Comment: IG% - Immature Granulocytes (promyelocytes, myelocytes andmetamyelocytes) > 1% indicates that a LEFT SHIFT is Present. Performed By: #### L 300.4310, L500.2500, L300.3900, L501.2450, L501.5200, L500.3400, L100.0100 ####[facility] [address] [place], [address] Lymphocytes/100 WBC (Bld) 3.7 % Low 19-41 [facility] Comment on above: Performed By: #### L 300.4310, L500.2500, L300.3900, L501.2450, L501.5200, L500.3400, L100.0100 ####[facility] [address] [place], [address] MCH (RBC) [Entitic mass] 32.1 pg High 27.0-32.0 [facility] Comment on above: Performed By: #### L 300.4310, L500.2500, L300.3900, L501.2450, L501.5200, L500.3400, L100.0100 ####[facility] [address] [place], [address] MCHC (RBC) [Mass/Vol] 34.1 g/dL Normal 32-36 [facility] Comment on above: Performed By: #### L 300.4310, L500.2500, L300.3900, L501.2450, L501.5200, L500.3400, L100.0100 ####[facility] [address] [place], [address] MCV (RBC) [Entitic vol] 94.0 fL Normal 80-94 [facility] Comment on above: Performed By: #### L 300.4310, L500.2500, L300.3900, L501.2450, L501.5200, L500.3400, L100.0100 ####[facility] [address] [place], [address] Monocytes/100 WBC (Bld) 8.7 % Normal 0-10 [facility] Comment on above: Performed By: #### L 300.4310, L500.2500, L300.3900, L501.2450, L501.5200, L500.3400, L100.0100 ####[facility] [address] [place], [address] Neutrophils/100 WBC (Bld) 86.5 % High 47-70 [facility] Comment on above: Performed By: #### L 300.4310, L500.2500, L300.3900, L501.2450, L501.5200, L500.3400, L100.0100 ####[facility] [address] [place], [address] Nucleated RBC (Bld) [#/Vol] 0 10*3/uL Normal 0-5 [facility] Comment on above: Performed By: #### L 300.4310, L500.2500, L300.3900, L501.2450, L501.5200, L500.3400, L100.0100 ####[facility] [address] [place], [address] Platelet mean volume (Bld) [Entitic vol] 9.7 fL Normal 6.2-12.0 [facility] Comment on above: Performed By: #### L 300.4310, L500.2500, L300.3900, L501.2450, L501.5200, L500.3400, L100.0100 ####[facility] [address] [place], [address] Platelets (Bld) [#/Vol] 198 10*3/uL Normal 150-450 [facility] Comment on above: Performed By: #### L 300.4310, L500.2500, L300.3900, L501.2450, L501.5200, L500.3400, L100.0100 ####[facility] [address] [place], [address] RBC (Bld) [#/Vol] 4.49 10*6/uL Low 4.6-6.2 [facility] Comment on above: Performed By: #### L 300.4310, L500.2500, L300.3900, L501.2450, L501.5200, L500.3400, L100.0100 ####[facility] [address] [place], [address] RDW SD 47.4 fl High 35.1-43.9 [facility] Comment on above: Performed By: #### L 300.4310, L500.2500, L300.3900, L501.2450, L501.5200, L500.3400, L100.0100 ####[facility] [address] [place], [address] WBC (Bld) [#/Vol] 13.3 10*3/uL High 4.4-11.0 [facility] Comment on above: Performed By: #### L 300.4310, L500.2500, L300.3900, L501.2450, L501.5200, L500.3400, L100.0100 ####[facility] [address] [place], [place], [id number] Emergency Department Summary on 03-26-2024 Emergency Department Summary Normal [facility] Epithelial cells.squamous LM Ql (Urine sed)Ordered By: Thomas Domínguez on 03-26-2024 Epithelial cells.squamous LM.HPF (Urine sed) [#/Area] 0 /[HPF] 0-5 [facility] Gallbladderon 03-26-2024 Gallbladder Normal [facility] Glucose Ql (U)Ordered By: Peace Domínguez on 03-26-2024 Urine Glucose (UA) Normal mg/dl Normal [facility] H AND P Exam - Hospitaliston 03-26-2024 H&P Exam - Hospitalist Normal [facility] International normalized rat io (INR) calculationOrdered By: Thomas Domínguez on 03-26-2024 INR Coag (Bld) [Relative time] 1.1 {INR} [facility] Ketones Test strip Ql (U)Ord ered By: Thomas Domínguez on 03-26-2024 Ketones Ql (U) 5 mg/dl High Negative [facility] Lipase measurementOrdered By : Thomas Domínguez on 03-26-2024 Lipase [Catalytic activity/Vol] U/L High 13-75 [facility] Comment on above: Please note:LIPASE r evised reference range effective 22. New Lipase methodology. Expected to produce lower values than the previous assay method. NEW Reference Range: 13 - 75 U/L Result Comment: Josey branch note:LIPASE revised reference range effective 22.New Lipase methodology. Expected to produce lower valuesthan the previous assay method.NEW Reference Range: 13 - 75 U/L Performed By: #### L 300.4310, L500.2500, L300.3900, L501.2450, L501.5200, L500.3400, L100.0100 ####[facility] [address] [place], [address] Liver Profileon 03-26-2024 Albumin [Mass/Vol] 3.2 g/dL Normal 3.2-5.0 [facility] Comment on above: Performed By: #### L 300.4310, L500.2500, L300.3900, L501.2450, L501.5200, L500.3400, L100.0100 ####[facility] [address] [place], [address] ALK P 135 U/L High 45-117 [facility] Comment on above: Performed By: #### L 300.4310, L500.2500, L300.3900, L501.2450, L501.5200, L500.3400, L100.0100 ####[facility] [address] [place], [address] ALT [Catalytic activity/Vol] 344 U/L High 16-61 [facility] Comment on above: Performed By: #### L 300.4310, L500.2500, L300.3900, L501.2450, L501.5200, L500.3400, L100.0100 ####[facility] [address] [place], [address] AST [Catalytic activity/Vol] 287 U/L High 15-37 [facility] Comment on above: Performed By: #### L 300.4310, L500.2500, L300.3900, L501.2450, L501.5200, L500.3400, L100.0100 ####[facility] [address] [place], [address] Bilirubin [Mass/Vol] 4.00 mg/dL High 0.20-1.00 [facility] Comment on above: Result Comment: For patients on eltrombopag therapy, use of Dimension [employer] TBIL is not recommended. Performed By: #### L 300.4310, L500.2500, L300.3900, L501.2450, L501.5200, L500.3400, L100.0100 ####[facility] [address] [place], [place], [address] Globulin (S) [Mass/Vol] 3.5 g/dL Normal 2.2-4.2 [facility] Comment on above: Performed By: #### L 300.4310, L500.2500, L300.3900, L501.2450, L501.5200, L500.3400, L100.0100 ####[facility] [address] [place], [place], [id number] T PROT 6.7 g/dL Normal 6.4-8.2 [facility] Comment on above: Performed By: #### L 300.4310, L500.2500, L300.3900, L501.2450, L501.5200, L500.3400, L100.0100 ####[facility] [address] [place], [address] MR/CON.PCM.GIon 03-26-2024 MR/CON.PCM.GI Normal [facility] MRCP Abdomen without Contras ton 03-26-2024 MRCP Abdomen without Contrast Normal [facility] Magnesiumon 03-26-2024 Magnesium [Mass/Vol] 1.4 mg/dL Low 1.6-2.6 [facility] Comment on above: Performed By: #### L 300.4310, L500.2500, L300.3900, L501.2450, L501.5200, L500.3400, L100.0100 ####[facility] [address] [place], [place], [address] Microscopic analysis of urin e for red blood cells (RBC)Ordered By: Thomas Domínguez on 03-26-2024 Urine RBC 5-10 SEEN /hpf 0-5 [facility] Mucus LM Ql (Urine sed)Order ed By: Thomas Domínguez on 03-26-2024 Mucus Ql (Urine sed) 0 SEEN /hpf [facility] Nitrite Test strip Ql (U)Ord ered By: Thomas Domínguez on 03-26-2024 Nitrite Ql (U) Negative Negative [facility] Partial Thromboplast Timeon 03-26-2024 aPTT Coag (Bld) [Time] 25.8 s Normal 24.1-36.2 [facility] Comment on above: Performed By: #### L 300.4310, L500.2500, L300.3900, L501.2450, L501.5200, L500.3400, L100.0100 ####[facility] [address] [place], [place], [phone] Protein Test strip Ql (U)Ord ered By: Thomas Domínguez on 03-26-2024 Protein Ql (U) 15 mg/dl High Negative [facility] Prothrombin Time w/INRon INR Coag (PPP) [Relative time] 1.1 {INR} Normal [facility] Comment on above: Performed By: #### L 300.4310, L500.2500, L300.3900, L501.2450, L501.5200, L500.3400, L100.0100 ####[facility] [address] [place], [address] PT Coag (PPP) [Time] 14.4 s Normal 11.7-14.9 [facility] Comment on above: Performed By: #### L 300.4310, L500.2500, L300.3900, L501.2450, L501.5200, L500.3400, L100.0100 ####[facility] [address] [place], [address] Prothrombin timeOrdered By: Thomas Domínguez on 03-26-2024 PT Coag (PPP) [Time] 14.4 s 11.7-14.9 [facility] Urinalysis, Completeon 03-26 BACTERIA 2+ /hpf Normal None Seen [facility] Comment on above: Order Comment: CLEAN CATCH Performed By: #### L 400.0001 ####[facility] [address] [place], [address] EPI,SQUAMOUS 0-5 SEEN Normal 0-5 [facility] Comment on above: Order Comment: CLEAN CATCH Performed By: #### L 400.0001 ####[facility] [address] [place], [address] RBC 5-10 SEEN Normal 0-5 [facility] Comment on above: Order Comment: CLEAN CATCH Performed By: #### L 400.0001 ####[facility] [address] [place], [address] Mucus Ql (Urine sed) 0 SEEN Normal [facility] Comment on above: Order Comment: CLEAN CATCH Performed By: #### L 400.0001 ####[facility] [address] [place], [address] WBC 0 SEEN Normal 0-5 [facility] Comment on above: Order Comment: CLEAN CATCH Performed By: #### L 400.0001 ####[facility] [address] [place], [address] Urine blood detectionOrdered By: Thomas Domínguez on 03-26-2024 Urine Occult Blood 10 /ul High Negative [facility] Urine clarityOrdered By: Barry Domínguez on 03-26-2024 Clarity (U) Sl. Cloudy Clear [facility] Urine color determinationOrd ered By: Thomas Domínguez on 03-26-2024 Color (U) Yellow Yellow [facility] Urine leukocyte esterase det ection by dipstickOrdered By: Thomas Domínguez on 03-26-2024 Leukocyte esterase Test strip Ql (U) Negative Negative [facility] Urine pHOrdered By: Thomas bryan on 03-26-2024 pH (U) 6.0 [pH] 5.0 - 8.0 [facility] Urine sediment bacteria coun t by microscopy (number/high power field)Ordered By: Thomas Domínguez on 03-26-2024 Bacteria LM.HPF (Urine sed) [#/Area] 2 /[HPF] None Seen [facility] Urine specific gravity measu rementOrdered By: Thomas Domínguez on 03-26-2024 Specific gravity (U) [Rel density] 1.010 1.002-1.030 [facility] Urobilinogen Ql (U)Ordered B y: Thomas Domínguez on 03-26-2024 Urobilinogen (U) [Mass/Vol] 4 mg/dL High Normal [facility] White blood cell countOrdere d By: Thomas Domínguez on 03-26-2024 Urine WBC 0 SEEN /hpf 0-5 [facility] aPTT Coag (PPP) [Time]Ordere d By: Thomas Domínguez on 03-26-2024 aPTT Coag (Bld) [Time] 25.8 s 24.1-36.2 [facility] XR CERVICAL 2V AP/LATon 01-30 XR CERVICAL 2V AP/LAT * * *Final Report* * * DATE OF EXAM: Feb 23 2024 10:30AM WOX [id number] - XR CERVICAL 2V AP/LAT / PROCEDURE REASON: cervical spine pain * * * * Physician Interpretation * * * * EXAMINATION / TECHNIQUE: XR CERVICAL 2V AP/LAT PATIENT/TECHNOLOGIST PROVIDED HISTORY: Left sided neck pain after lifting something heavy x 5 days ago CLINICAL INFORMATION ( PROVIDED BY ORDERING CLINICIAN) : cervical spine pain COMPARISON: 06/21/2018 RESULT: Counting reference: Craniocervical junction. Anatomic Variants: None. Normal cervical lordosis. No significant scoliosis. No significant spondylolisthesis. C1-C2 relationship is preserved. Vertebral body heights are preserved. No acute fracture is identified. Moderate to severe degenerative disc disease at C6-C7 with disc height loss, degenerative endplate changes, and osteophytes. Mild to moderate degenerative disc disease at C5-C6. Mild degenerative endplate changes elsewhere. Uncovertebral and facet arthropathy. IMPRESSION: No acute osseous abnormality. Degenerative changes, as described, moderate to severe at C6-C7 Voltage Regulator Assembler: [facility] Transcribe Date/Time: Mar 01 2024 12:10A Dictated by : CHELSEA CASTILLO MD This examination was interpreted and the report reviewed and electronically signed by: CHELSEA CASTILLO MD on Mar 01 2024 12:12AM EST [id number] Normal [facility] XR SHOULDER 2V AP/TRUE AP LT on 02-23-2024 XR SHOULDER 2V AP/TRUE AP LT * * *Final Report* * * DATE OF EXAM: Feb 23 2024 10:30AM WOX [id number] - XR SHOULDER 2V AP/TRUE AP LT / PROCEDURE REASON: left shoulder pain * * * * Physician Interpretation * * * * EXAMINATION / TECHNIQUE: XR SHOULDER 2V AP/TRUE AP LT PATIENT/TECHNOLOGIST PROVIDED HISTORY: Posterior left shoulder pain after lifting something heavy x 5 days ago CLINICAL INFORMATION ( PROVIDED BY ORDERING CLINICIAN) : left shoulder pain COMPARISON: 07/06/2011 RESULT: Mild to moderate left glenohumeral osteoarthritis with joint space narrowing and osteophytes, progressed. Mild to moderate hypertrophic degenerative changes also present at the acromioclavicular joint. Reactive subcortical cystic changes at the greater tuberosity suggests rotator cuff tendinosis. Small ossification along the superior glenoid may represent a fragmented osteophyte or small intra-articular body. IMPRESSION: Mild to moderate osteoarthritis. Reactive changes at the greater tuberosity suggests rotator cuff tendinosis. Voltage Regulator Assembler: [facility] Transcribe Date/Time: Mar 01 2024 12:12A Dictated by : CHELSEA CASTILLO MD This examination was interpreted and the report reviewed and electronically signed by: CHELSEA CASTILLO MD on Mar 01 2024 12:18AM EST [id number] Normal [facility] CNOVon 02-14-2024 CNOV Office Visit ([facility] ) -- FRAN PAREKH ([id number]) 1945 M Date Time Provider Department 02/14/24 11:40 AM MARILIA OROZCO During your visit today, we recorded the following information about you: Pulse Respiration Blood pressure Weight 60/minute 18/minute 138/84 132.2 kg Marilia Orozco APRN.CNP 02/14/2024 4:37 PM Signed 02/14/2024 Patient presents with: Follow Up: Right leg swelling Pain: Left shoulder/upper back into neck pain SUBJECTIVE: This is a 78 year old that is here today for Above Complaints.. ONSET: Monday afternoon after lifting boxes LOCATION: left shoulder/back/neck DURATION: constant CHARACTERISTICS: oliver AGGRAVATING FEATURES: neck flexion ALLEVIATING FEATURES: tylenol Hurt it playing [employer] years ago. Denies past surgeries,extremity numbness, tingling, weakness, swelling or redness Right leg still with swelling. Wants to make sure he does not have any cellulitis. Denies fevers, chills, pain,increasing redness, increased swelling, warmth or red streaking PAST MEDICAL HISTORY Diagnosis Date Angina at [...] of skin of nose Dr. Chowdary in [place] Stage 3a chronic kidney disease (HCC) Venous insufficiency ALLERGIES Norvasc [Amlodipine Besylate], Venom-Wasp, and Zithromax [Azithromycin] MEDICATIONS Current Outpatient Medications Medication Sig sulfamethoxazole-trimethop rim (BACTRIM DS) 800-160 mg per tablet Take 1 tablet by mouth every 12 hours. cephALEXin (KEFLEX) 500 mg capsule Take 1 capsule by mouth three times a day. metoprolol succinate ER (TOPROL XL) 50 mg 24 hr tablet Take 1 tablet by mouth once daily. ammonium lactate (LAC-HYDRIN) 12 % cream Apply to affected area as needed. Apply on thick skin apixaban (ELIQUIS) 5 mg tab(s) Take 1 tablet by mouth two times a day. apixaban (ELIQUIS) 5 mg tab(s) Take 2 tablets (10 mg) by mouth twice daily for 6 days. Then take 1 tablet (5 mg) by mouth twice daily lisinopril (ZESTRIL) 40 mg tablet Take 1 tablet by mouth once daily. hydroCHLOROthiazide 25 mg tablet Take 1 tablet by mouth once daily. gabapentin (NEURONTIN) 300 mg capsule Take 300 mg by mouth daily at bedtime. atorvastatin (LIPITOR) 40 mg tablet Take 1 tablet by mouth once daily. levothyroxine (SYNTHROID) 125 mcg tablet TAKE 1 TABLET BY MOUTH EVERY DAY ON AN EMPTY STOMACH FOR THYROID amoxicillin (POLYMOX, AMOXIL) 500 mg capsule Take four capsules one hour before dental procedure. (Patient not taking: Reported on 12/19/2023) CPAP AutoPAP [id number]. Mask per preference, tubing, filters, humidity. Lifetime Supplies. Dx: G47.33. Fax 30 day compliance report to [phone]. CPAP Please provide mask fitting. Pt with [...] Social History Tobacco Use Smoking status: Never Passive exposure: Past Smokeless tobacco: Never Vaping Use Vaping status: Never Used Substance Use Topics Alcohol use: No Drug use: No REVIEW OF SYSTEMS All other reviewed and negative other than HPI. OBJECTIVE: BP 138/84 Pulse 60 Resp 18 Wt 132.2 kg (291 lb 7.2 oz) SpO2 95% BMI 39.53 kg/m? . Vital signs reviewed by this provider. APPEARANCE Well appearing, alert, in no acute distress, well-hydrated, well nourished. EYES conjunctiva and sclera normal. NECK: FROM. Reports discomfort with neck flexion, rotation and lateral bending. Negative Spurling SKIN Skin color, texture, turgor normal, no suspicious rashes or lesions to exposed skin UPPER BACK. No obvious deformity, skin rashes swelling or erythema.Point tenderness upper scapula LEGS: right lower leg remains more swollen than right. Moises complexion without excessive warmth, pain or red stre (more content not included)... Normal [facility] 02-08-2024 CNPN Telephone ([facility]) -- FRAN PAREKH ([id number]) 1945 M Date Time Provider Department 02/08/24 PODLOGAR, MARILIA CARDOZA During your visit today, we recorded the following information about you: Sissy Abbott LPN 02/08/2024 10:02 AM Signed Pt calling for an appt to hillary right lower leg cellulitis. Pt states area has improved, only has slight redness AND he would like it recked. Pt reports pain is gone. Pt requesting appt with Administrative Manager Podlogar. 1st avial with her is 02/14/24, pt accepted appt. Sooner appt offered with a different provider, pt declined. Pt instructed if area on leg starts to get worse, more red, painful etc to call for a sooner appt, pt voiced understanding. Pt also requesting flu AND covid vaccine at same appt. Sissy Abbott LPN Allergies As of Date: 02/08/2024 Noted Allergy Reaction NORVASC (AMLODIPINE BESYLATE) 09/14/2016 7 - Swelling Comments: pedal edema VENOM-WASP 01/14/2005 7 - Swelling ZITHROMAX (AZITHROMYCIN) 01/14/2005 9 - Itching Date Reviewed: 01/29/2024 Reviewed by: Eunice Bruce LPN - Fully Assessed Reason for Visit: Hillary cellulitis [Other] Prescriptions as of 02/08/2024 - sulfamethoxazole-trimethop rim (BACTRIM DS) 800-160 mg per tablet Take 1 tablet by mouth every 12 hours. - cephALEXin (KEFLEX) 500 mg capsule Take 1 capsule by mouth three times a day. - metoprolol succinate ER (TOPROL XL) 50 mg 24 hr tablet Take 1 tablet by mouth once daily. - ammonium lactate (LAC-HYDRIN) 12 % cream Apply to affected area as needed. Apply on thick skin - apixaban (ELIQUIS) 5 mg tab(s) Take 1 tablet by mouth two times a day. - apixaban (ELIQUIS) 5 mg tab(s) Take 2 tablets (10 mg) by mouth twice daily for 6 days. Then take 1 tablet (5 mg) by mouth twice daily - lisinopril (ZESTRIL) 40 mg tablet Take 1 tablet by mouth once daily. - hydroCHLOROthiazide 25 mg tablet Take 1 tablet by mouth once daily. - gabapentin (NEURONTIN) 300 mg capsule Take 300 mg by mouth daily at bedtime. - atorvastatin (LIPITOR) 40 mg tablet Take 1 tablet by mouth once daily. - levothyroxine (SYNTHROID) 125 mcg tablet TAKE 1 TABLET BY MOUTH EVERY DAY ON AN EMPTY STOMACH FOR THYROID - amoxicillin (POLYMOX, AMOXIL) 500 mg capsule Take four capsules one hour before dental procedure. - CPAP AutoPAP [id number]. Mask per preference, tubing, filters, humidity. Lifetime Supplies. Dx: G47.33. Fax 30 day compliance report to [phone]. - CPAP Please provide mask fitting. Pt [...] tablet daily. Problem List As Of Date 02/08/2024 Noted Resolved Primary hypertension [I10] 03/11/2005 Hypertrophy of prostate with urinary obstructio*06/01/2006 BLADDER NECK OBSTRUCTION [N32.0] 06/01/2006 Plantar fascial fibromatosis [M72.2] 11/02/2006 05/09/2014 Ingrowing nail [L60.0] 11/26/2007 05/09/2014 Hypothyroidism [E03.9] 03/25/2009 Open fracture of distal phalangeal tuft [MWI939*08/31/2011 05/09/2014 Internal derangement of right knee [M23.91] [...] ASHD (arteriosclerotic heart disease) [I25.10] 09/14/2016 Hyperlipidemia [E78.5] 09/14/2016 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] 06/08/2018 Right buttock pain [M79.18] 02/04/2019 Ankle edema, bilateral [M25.471, M25.472] 02/04/2019 Class 2 obesity due to excess calories with bod*05/13/2019 Pre-operative examination [Z01.818] 05/13/2019 Primary osteoarthritis of right hip [M16.11] 05/13/2019 Osteoarthritis of right hip [M16.11] 06/03/2019 06/06/2019 Carpal tunnel syndrome, bilateral [G56.03] 11/20/2019 Stage 3a chronic kidney disease [N18.31] 04/29/2020 Obesity, Class II, BMI 35-39.9 [E66.812] 04/29/2020 Bilateral leg edema [R60.0] 04/29/2020 Venous insufficiency (chronic) (peripheral) [I8*04/29/2020 Cervical radiculopathy [M54.12] 02/08/2021 Chronic low back pain with bilateral sciatica [*12/08/2021 Personal history of fall [Z91.81] 12/08/2021 Age-related physical debility [R54] 12/08/2021 Obesity, Class III, BMI 40-49.9 (morbid obesity*11/02/2022 Chronic bilateral low back pain with bilateral *11/29/2022 Stage 3b chronic kidney disease (HCC) [N18.32] 05/15/2023 Ac (more content not included)... Normal [facility] CNOVon 01-29-2024 CNOV Office Visit (FAMPWS ) -- FRAN PAREKH ([id number]) 1945 M Date Time Provider Department 01/29/24 11:20 AM LASHANDALOGMARILIA STUART During your visit today, we recorded the following information about you: Temperature Pulse Respiration Blood pressure 97.6 degrees 59/minute 16/minute 144/92 Weight 129.7 kg Marilia Orozco APRN.SUPERVISOR REMELT 01/29/2024 12:28 PM Signed 01/29/2024 Patient presents with: Follow Up: Cellulitis/pain to right leg SUBJECTIVE: This is a 78 year old that is here today for Above Complaints. Seen for right lower leg cellulitis. Was taking Keflex and Doxycyline but reports had some burning and slight fever of 99. Given dose of Vancomycin IV and Doxycyline switched to Bactrim. Started the Bactrim Monday and is tolerating without side effects. Denies fevers, chills, increasing redness, warmth or swelling Completed MRI for right knee pain. See results below. Pain some better in knee. Walking without any assistance. IMPRESSION: MEDIAL MENISCUS TEAR WITH A COMPONENT DISPLACED/EXTRUDED TOWARDS THE INFEROMEDIAL GUTTER. PROMINENT PREPATELLAR BURSITIS. MILD OSTEOARTHRITIS. Voltage Regulator Assembler: WILNER Transcribe Date/Time: Jan 26 2024 1:16P Dictated by : HCELSEA CASTILLO MD This examination was interpreted and the report reviewed and electronically signed by: CHELSEA CASTILLO MD on Jan 27 2024 3:42PM EST Results-Findings * * *Final Report* * * DATE OF EXAM: Jan 26 2024 11:52AM M2M 0213 - MRI KNEE WO IVCON RT / PROCEDURE REASON: Acute pain of right knee * * * * Physician Interpretation * * * * EXAMINATION: MRI RIGHT KNEE WITHOUT CONTRAST CLINICAL HISTORY: Acute right knee pain TECHNIQUE: Routine non-contrast MRI of the knee MQ: MRK_2B COMPARISON: 01/18/2024 radiographs RESULT: MENISCI: Medial Meniscus: Tear in the body with a component displaced/extruded into the inferomedial gutter. Lateral Meniscus: Degenerative changes without a tear in the posterior horn and body LIGAMENTS: ACL: Intact PCL: Intact MCL: Intact LCL Complex: Intact CARTILAGE: Medial Femoral Condyle: Moderate sized area(s) of predominantly low grade (less than 50% thickness) cartilage loss and or fissuring with smaller area(s) of high grade (greater than 50% thickness) cartilage loss and or fissuring Medial Tibial Plateau: Small area(s) of full thickness cartilage loss and or fissuring Lateral Femoral Condyle: Large area(s) of low grade (less than 50% thickness) partial thickness cartilage loss and or fissuring Lateral Tibial Plateau: Normal Patella: Moderate sized area(s) of predominantly high grade (greater than 50% thickness) cartilage loss and or fissuring with smaller area(s) of full thickness cartilage loss and or fissuring Trochlea: Normal TENDONS: Prominent prepatellar bursitis with a lobulated complex fluid anterior to the patellar tendon with synovial proliferation within. Generalized edema about the knee. The distal quadriceps and patellar tendons are intact. The popliteus tendon is intact. BONES AND MARROW: No evidence of fracture or bone marrow replacing process. MUSCLES: Muscle bulk and signal intensity are normal. JOINT FLUID AND SYNOVIUM: No joint effusion. No synovitis. Miniscule mostly collapsed Gutierrez's cyst. OTHER: No other significant abnormality identified. Localizer images: Unremarkable. ER record reviewed PAST MEDICAL HISTORY Diagnosis Date Angina at [...] of skin of nose Dr. Chowdary in [place] Stage 3a chronic kidney disease (HCC) Venous insufficiency ALLERGIES Norvasc [Amlodipine Besylate], Venom-Wasp, and Zithromax [Azithromycin] MEDICATIONS Current Outpatient Medications Medication Sig sulfamethoxazole-trimethop rim (BACTRIM DS) 800-160 mg per tablet Take 1 tablet by mouth every 12 hours. doxycycline (VIBRA-TABS) 100 mg tablet Take 1 tablet by mouth two times a day for 10 days. (Patient not taking: Reported on 01/29/2024) cephALEXin (KEFLEX) 500 mg capsule Take 1 capsule by mouth three times a day. metoprolol succinate ER (TOPROL XL) 50 mg 24 hr tablet Take 1 (more content not included)... Normal [facility] MR Knee - right WO contrasto n 01-27-2024 IMPRESSION: MEDIAL MENISCUS TEAR WITH A COMPONENT DISPLACED/EXTRUDED TOWARDS THE INFEROMEDIAL GUTTER. PROMINENT PREPATELLAR BURSITIS. MILD OSTEOARTHRITIS. Voltage Regulator Assembler: WILNER Transcribe Date/Time: Jan 26 2024 1:16P Dictated by : CHELSEA CASTILLO MD This examination was interpreted and the report reviewed and electronically signed by: CHELSEA CASTILLO MD on Jan 27 2024 3:42PM [facility] DIVISION OF RADIOLOGY * * *Final Report* * * DATE OF EXAM: Jan 26 2024 11:52AM M2M 0213 - MRI KNEE WO IVCON RT / PROCEDURE REASON: Acute pain of right knee * * * * Physician Interpretation * * * * EXAMINATION: MRI RIGHT KNEE WITHOUT CONTRAST CLINICAL HISTORY: Acute right knee pain TECHNIQUE: Routine non-contrast MRI of the knee MQ: MRK_2B COMPARISON: 01/18/2024 radiographs RESULT: MENISCI: Medial Meniscus: Tear in the body with a component displaced/extruded into the inferomedial gutter. Lateral Meniscus: Degenerative changes without a tear in the posterior horn and body LIGAMENTS: ACL: Intact PCL: Intact MCL: Intact LCL Complex: Intact CARTILAGE: Medial Femoral Condyle: Moderate sized area(s) of predominantly low grade (less than 50% thickness) cartilage loss and or fissuring with smaller area(s) of high grade (greater than 50% thickness) cartilage loss and or fissuring Medial Tibial Plateau: Small area(s) of full thickness cartilage loss and or fissuring Lateral Femoral Condyle: Large area(s) of low grade (less than 50% thickness) partial thickness cartilage loss and or fissuring Lateral Tibial Plateau: Normal Patella: Moderate sized area(s) of predominantly high grade (greater than 50% thickness) cartilage loss and or fissuring with smaller area(s) of full thickness cartilage loss and or fissuring Trochlea: Normal TENDONS: Prominent prepatellar bursitis with a lobulated complex fluid anterior to the patellar tendon with synovial proliferation within. Generalized edema about the knee. The distal quadriceps and patellar tendons are intact. The popliteus tendon is intact. BONES AND MARROW: No evidence of fracture or bone marrow replacing process. MUSCLES: Muscle bulk and signal intensity are normal. JOINT FLUID AND SYNOVIUM: No joint effusion. No synovitis. Miniscule mostly collapsed Gutierrez's cyst. OTHER: No other significant abnormality identified. Localizer images: Unremarkable. DIVISION OF RADIOLOGY Provider, [facility] - 01/27/2024 * * *Final Report* * * DATE OF EXAM: Jan 26 2024 11:52AM M2M 0213 - MRI KNEE WO IVCON RT / PROCEDURE REASON: Acute pain of right knee * * * * Physician Interpretation * * * * EXAMINATION: MRI RIGHT KNEE WITHOUT CONTRAST CLINICAL HISTORY: Acute right knee pain TECHNIQUE: Routine non-contrast MRI of the knee MQ: MRK_2B COMPARISON: 01/18/2024 radiographs RESULT: MENISCI: Medial Meniscus: Tear in the body with a component displaced/extruded into the inferomedial gutter. Lateral Meniscus: Degenerative changes without a tear in the posterior horn and body LIGAMENTS: ACL: Intact PCL: Intact MCL: Intact LCL Complex: Intact CARTILAGE: Medial Femoral Condyle: Moderate sized area(s) of predominantly low grade (less than 50% thickness) cartilage loss and or fissuring with smaller area(s) of high grade (greater than 50% thickness) cartilage loss and or fissuring Medial Tibial Plateau: Small area(s) of full thickness cartilage loss and or fissuring Lateral Femoral Condyle: Large area(s) of low grade (less than 50% thickness) partial thickness cartilage loss and or fissuring Lateral Tibial Plateau: Normal Patella: Moderate sized area(s) of predominantly high grade (greater than 50% thickness) cartilage loss and or fissuring with smaller area(s) of full thickness cartilage loss and or fissuring Trochlea: Normal TENDONS: Prominent prepatellar bursitis with a lobulated complex fluid anterior to the patellar tendon with synovial proliferation within. Generalized edema about the knee. The distal quadriceps and patellar tendons are intact. The popliteus tendon is intact. BONES AND MARROW: No evidence of fracture or bone marrow replacing process. MUSCLES: Muscle bulk and signal intensity are normal. JOINT FLUID AND SYNOVIUM: No joint effusion. No synovitis. Miniscule mostly collapsed Gutierrez's cyst. OTHER: No other significant abnormality identified. Localizer images: Unremarkable. IMPRESSION IMPRESSION: MEDIAL MENISCUS TEAR WITH A COMPONENT DISPLACED/EXTRUDED TOWARDS THE INFEROMEDIAL GUTTER. PROMINENT PREPATELLAR BURSITIS. MILD OSTEOARTHRITIS. Voltage Regulator Assembler: [facility] Transcribe Date/Time: Jan 26 2024 1:16P Dictated by : CHELSEA CASTILLO MD This examination was interpreted and the report reviewed and electronically signed by: CHELSEA CASTILLO MD on Jan 27 2024 3:42PM [facility] MR Knee - right WO contrastO rdered By: [facility] Provider on 01-27-2024 [facility] Basic Metabolic Profile (BMP )on 01-26-2024 BUN/CRE 14.4 RATIO Normal 10-20 [facility] Comment on above: Performed By: #### L 503.6005, L500.2500, L100.0500 ####[facility] [address] [place], [address] CA,Total 9.2 mg/dL Normal 8.5-10.1 [facility] Comment on above: Performed By: #### L 503.6005, L500.2500, L100.0500 ####[facility] [address] [place], [address] Chloride [Moles/Vol] 108 mmol/L High 98-107 [facility] Comment on above: Performed By: #### L 503.6005, L500.2500, L100.0500 ####[facility] [address] [place], [address] CO2 [Moles/Vol] 27.0 mmol/L Normal 21.0-32.0 [facility] Comment on above: Performed By: #### L 503.6005, L500.2500, L100.0500 ####[facility] [address] [place], [address] Creatinine [Mass/Vol] 1.53 mg/dL High 0.70-1.30 [facility] Comment on above: Result Comment: The validity of the calculated GFR GFRAA in patients over70 years has not been determined. Clinical correlation isessential. Performed By: #### L 503.6005, L500.2500, L100.0500 ####[facility] [address] [place], [address] ECRCL 54.51 ml/min Normal [facility] Comment on above: Performed By: #### L 503.6005, L500.2500, L100.0500 ####[facility] [address] [place], [address] EST GFR - AA 57 mL/min Low >60 [facility] Comment on above: Result Comment: Afri can Albanian GFR Calc Performed By: #### L 503.6005, L500.2500, L100.0500 ####[facility] [address] [place], [address] GAP 6 Normal 5-15 [facility] Comment on above: Performed By: #### L 503.6005, L500.2500, L100.0500 ####[facility] [address] [place], [address] GFR/1.73 sq M.predicted among non-blacks MDRD (S/P/Bld) [Vol rate/Area] 47 mL/min/{1.73_m2} Low >60 [facility] Comment on above: Result Comment: Non- GFR Calc Performed By: #### L 503.6005, L500.2500, L100.0500 ####[facility] [address] [place], [address] Glucose [Mass/Vol] 125 mg/dL High 74-106 [facility] Comment on above: Result Comment: Fast ing Glucose result from 100 to 125 mg/dLsuggests IMPAIRED HOMEOSTASIS per A.D.A. criteria. Performed By: #### L 503.6005, L500.2500, L100.0500 ####[facility] [address] [place], [address] Potassium [Moles/Vol] 3.6 mmol/L Normal 3.5-5.1 [facility] Comment on above: Performed By: #### L 503.6005, L500.2500, L100.0500 ####[facility] [address] [place], [address] Sodium [Moles/Vol] 140 mmol/L Normal 136-145 [facility] Comment on above: Performed By: #### L 503.6005, L500.2500, L100.0500 ####[facility] [address] [place], [address] Urea nitrogen [Mass/Vol] 22 mg/dL High 7-18 [facility] Comment on above: Performed By: #### L 503.6005, L500.2500, L100.0500 ####[facility] [address] [place], [address] CBC-Complete Blood Cnt No Di ffon 01-26-2024 Erythrocyte distribution width (RBC) [Ratio] 13.4 % Normal 11.6-14.6 [facility] Comment on above: Performed By: #### L 503.6005, L500.2500, L100.0500 ####[facility] [address] [place], [address] Hematocrit (Bld) [Volume fraction] 44.4 % Normal 40-54 [facility] Comment on above: Performed By: #### L 503.6005, L500.2500, L100.0500 ####[facility] [address] [place], [address] Hemoglobin (Bld) [Mass/Vol] 14.7 g/dL Normal 13.0-16.5 [facility] Comment on above: Performed By: #### L 503.6005, L500.2500, L100.0500 ####[facility] [address] [place], [address] MCH (RBC) [Entitic mass] 31.5 pg Normal 27.0-32.0 [facility] Comment on above: Performed By: #### L 503.6005, L500.2500, L100.0500 ####[facility] [address] [place], [address] MCHC (RBC) [Mass/Vol] 33.1 g/dL Normal 32-36 [facility] Comment on above: Performed By: #### L 503.6005, L500.2500, L100.0500 ####[facility] [address] [place], [address] MCV (RBC) [Entitic vol] 95.3 fL High 80-94 [facility] Comment on above: Performed By: #### L 503.6005, L500.2500, L100.0500 ####[facility] [address] [place], [address] Platelet mean volume (Bld) [Entitic vol] 8.7 fL Normal 6.2-12.0 [facility] Comment on above: Performed By: #### L 503.6005, L500.2500, L100.0500 ####[facility] [address] [place], [address] Platelets (Bld) [#/Vol] 282 10*3/uL Normal 150-450 [facility] Comment on above: Performed By: #### L 503.6005, L500.2500, L100.0500 ####[facility] [address] [place], [address] RBC (Bld) [#/Vol] 4.66 10*6/uL Normal 4.6-6.2 [facility] Comment on above: Performed By: #### L 503.6005, L500.2500, L100.0500 ####[facility] [address] [place], [address] RDW SD 47.0 fl High 35.1-43.9 [facility] Comment on above: Performed By: #### L 503.6005, L500.2500, L100.0500 ####[facility] [address] [place], [address] WBC (Bld) [#/Vol] 10.7 10*3/uL Normal 4.4-11.0 [facility] Comment on above: Performed By: #### L 503.6005, L500.2500, L100.0500 ####[facility] [address] [place], [address] Emergency Department Summary on 01-26-2024 Emergency Department Summary Normal [facility] Lactic Acidon 01-26-2024 Lactate [Moles/Vol] 1.8 mmol/L Normal 0.4-1.9 [facility] Comment on above: Order Comment: Y Performed By: #### L 503.6005, L500.2500, L100.0500 ####[facility] [address] [place], [address] MR Knee - right WO contrasto n 01-26-2024 Radiology Study observation (narrative) [facility] MRI KNEE WO IVCON RTon 01-25 MRI KNEE WO IVCON RT * * *Final Report* * * DATE OF EXAM: Jan 26 2024 11:52AM M2M 0213 - MRI KNEE WO IVCON RT / PROCEDURE REASON: Acute pain of right knee * * * * Physician Interpretation * * * * EXAMINATION: MRI RIGHT KNEE WITHOUT CONTRAST CLINICAL HISTORY: Acute right knee pain TECHNIQUE: Routine non-contrast MRI of the knee MQ: MRK_2B COMPARISON: 01/18/2024 radiographs RESULT: MENISCI: Medial Meniscus: Tear in the body with a component displaced/extruded into the inferomedial gutter. Lateral Meniscus: Degenerative changes without a tear in the posterior horn and body LIGAMENTS: ACL: Intact PCL: Intact MCL: Intact LCL Complex: Intact CARTILAGE: Medial Femoral Condyle: Moderate sized area(s) of predominantly low grade (less than 50% thickness) cartilage loss and or fissuring with smaller area(s) of high grade (greater than 50% thickness) cartilage loss and or fissuring Medial Tibial Plateau: Small area(s) of full thickness cartilage loss and or fissuring Lateral Femoral Condyle: Large area(s) of low grade (less than 50% thickness) partial thickness cartilage loss and or fissuring Lateral Tibial Plateau: Normal Patella: Moderate sized area(s) of predominantly high grade (greater than 50% thickness) cartilage loss and or fissuring with smaller area(s) of full thickness cartilage loss and or fissuring Trochlea: Normal TENDONS: Prominent prepatellar bursitis with a lobulated complex fluid anterior to the patellar tendon with synovial proliferation within. Generalized edema about the knee. The distal quadriceps and patellar tendons are intact. The popliteus tendon is intact. BONES AND MARROW: No evidence of fracture or bone marrow replacing process. MUSCLES: Muscle bulk and signal intensity are normal. JOINT FLUID AND SYNOVIUM: No joint effusion. No synovitis. Miniscule mostly collapsed Gutierrez's cyst. OTHER: No other significant abnormality identified. Localizer images: Unremarkable. IMPRESSION: MEDIAL MENISCUS TEAR WITH A COMPONENT DISPLACED/EXTRUDED TOWARDS THE INFEROMEDIAL GUTTER. PROMINENT PREPATELLAR BURSITIS. MILD OSTEOARTHRITIS. Voltage Regulator Assembler: [employer] Transcribe Date/Time: Jan 26 2024 1:16P Dictated by : CHELSEA CASTILLO MD This examination was interpreted and the report reviewed and electronically signed by: CHELSEA CASTILLO MD on Jan 27 2024 3:42PM EST [id number] Normal [facility] CNOVon 01-24-2024 CNOV Office Visit (FAMPWS ) -- FRAN PAREKH ([id number]) 1945 M Date Time Provider Department 01/24/24 12:40 PM LASHANDALOGARMARILIA During your visit today, we recorded the following information about you: Temperature Pulse Respiration Blood pressure 98.2 degrees 81/minute 16/minute 134/90 Weight 130.1 kg Marilia Orozco APRN.SUPERVISOR REMELT 01/24/2024 1:38 PM Signed 01/24/2024 Patient presents with: Follow Up: Cellulitis SUBJECTIVE: This is a 78 year old that is here today for Above Complaints. Started on Keflex on 01/19/2024 for redness and swelling of right leg after a fall. US negative for DVT. Followed back up on 01/22/2024 and Doxycyline added for MRSA coverage. Completed Keflex and is on day 3 Doxycyline. Still with swelling and redness. Denies fevers, chills, increasing redness, warmth or open areas. Concerned about his knee pain as well which started with fall over a week ago. Reports he tripped and fell directly on to knee. Had xray completed 01/17 which showed osteoarthrosis. Pain located in the front and medial aspect descried as aching and sharp at times. Aggravated going up the stairs and getting in/out of car. Takes Tylenol for pain with mild relief. No prior hx of injuries or surgeries PAST MEDICAL HISTORY Diagnosis Date Angina at [...] of skin of nose Dr. Chowdary in [place] Stage 3a chronic kidney disease (HCC) Venous insufficiency ALLERGIES Norvasc [Amlodipine Besylate], Venom-Wasp, and Zithromax [Azithromycin] MEDICATIONS Current Outpatient Medications Medication Sig doxycycline (VIBRA-TABS) 100 mg tablet Take 1 tablet by mouth two times a day for 10 days. cephALEXin (KEFLEX) 500 mg capsule Take 1 capsule by mouth three times a day. metoprolol succinate ER (TOPROL XL) 50 mg 24 hr tablet Take 1 tablet by mouth once daily. ammonium lactate (LAC-HYDRIN) 12 % cream Apply to affected area as needed. Apply on thick skin apixaban (ELIQUIS) 5 mg tab(s) Take 1 tablet by mouth two times a day. apixaban (ELIQUIS) 5 mg tab(s) Take 2 tablets (10 mg) by mouth twice daily for 6 days. Then take 1 tablet (5 mg) by mouth twice daily lisinopril (ZESTRIL) 40 mg tablet Take 1 tablet by mouth once daily. hydroCHLOROthiazide 25 mg tablet Take 1 tablet by mouth once daily. gabapentin (NEURONTIN) 300 mg capsule Take 300 mg by mouth daily at bedtime. atorvastatin (LIPITOR) 40 mg tablet Take 1 tablet by mouth once daily. levothyroxine (SYNTHROID) 125 mcg tablet TAKE 1 TABLET BY MOUTH EVERY DAY ON AN EMPTY STOMACH FOR THYROID amoxicillin (POLYMOX, AMOXIL) 500 mg capsule Take four capsules one hour before dental procedure. (Patient not taking: Reported on 12/19/2023) CPAP AutoPAP [id number]. Mask per preference, tubing, filters, humidity. Lifetime Supplies. Dx: G47.33. Fax 30 day compliance report to [phone]. CPAP Please provide mask fitting. Pt with [...] Social History Tobacco Use Smoking status: Never Passive exposure: Past Smokeless tobacco: Never Vaping Use Vaping status: Never Used Substance Use Topics Alcohol use: No Drug use: No REVIEW OF SYSTEMS All other reviewed and negative other than HPI. OBJECTIVE: BP 134/90 Pulse 81 Temp 36.8 ?C (98.2 ?F) Resp 16 Wt 130.1 kg (286 lb 13.1 oz) SpO2 97% BMI 38.90 kg/m? . Vital signs reviewed by this provider. APPEARANCE Well appearing, alert, in no acute distress, well-hydrated, well nourished. RIGHT LEG. 2 (more content not included)... Normal [facility] CNOVon 01-22-2024 CNOV Office Visit (FAMPWS ) -- FRAN PAREKH ([id number]) 1945 M Date Time Provider Department 01/22/24 11:20 AM AGNES DIAZ FAMPWS During your visit today, we recorded the following information about you: Temperature Pulse Respiration Blood pressure 97.9 degrees 76/minute 18/minute 124/72 Weight 130.9 kg Agnes Diaz MD 01/23/2024 2:52 PM Signed Chief Complaint Patient presents with: Follow Up: Right leg follow up HPI Fran Parekh is a 78 year old male who presents here today for Above Complaints.. Patient evaluated 3 days ago for right leg pain, redness and swelling after a fall 1 week ago and was started on Keflex TID for cellulitis and had US to rule out DVT which was negative for deep and superficial clot. CBC unremarkable. Since last OV, patient has been compliant with the abx and has had improvement in the redness, but not the swelling. Taking tylenol for pain in his knee and landry which does take the edge off. Keeping leg elevated when resting. Not using crutches or cane for ambulation. Denies fever/chills, purulent discharge, nausea, vomiting, streaking, increased swelling. Past medical history, appointments, medications, allergies reviewed. Previous Medical History PAST MEDICAL HISTORY Diagnosis Date Angina at [...] of skin of nose Dr. Chowdary in [place] Stage 3a chronic kidney disease (HCC) Venous insufficiency Previous Surgical History PAST SURGICAL HISTORY Procedure Laterality Date ARTHRP ACETBLR/PROX FEM PROSTC AGRFT/ALGRFT Right 06/03/2019 Hip replacement, total COLONOSCOPY FLX DX W/COLLJ SPEC WHEN PFRMD 04/21/11 Repeat 10 [id number] LASER GREENLIGHT prostate, [place] NEUROPLASTY AND/TRANSPOS MEDIAN NRV CARPAL TUNNE Left 01/17/2020 Left carpal tunnel release NEUROPLASTY AND/TRANSPOS MEDIAN NRV CARPAL TUNNE Right 03/04/2020 Right carpal tunnel release RPR UMBILICAL HRNA 5 YRS/> REDUCIBLE TONSILLECTOMY PRIMARY/SECONDARY Tonsillectomy Family History FAMILY HISTORY Problem Relation Age of Onset Heart Mother other (Myocardial infarction) Mother 81 Headache Father MIGRAINES other (lung cancer) Father DECEACED AGE 86 YR LUNG CA No Known Problems Sister No Known Problems Sister Headache Sister MIGRAINES other (Myocardial infarction) Maternal Grandfather 64 other (Myocardial infarction) Maternal Uncle 74 Patient Allergies ALLERGIES Allergen Reactions Norvasc [Amlodipine* Swelling pedal edema Venom-Wasp Swelling Zithromax [Azithrom* Itching Current Medications Current Outpatient Medications on File Prior to Visit Medication Sig cephALEXin (KEFLEX) 500 mg capsule Take 1 capsule by mouth three times a day. metoprolol succinate ER (TOPROL XL) 50 mg 24 hr tablet Take 1 tablet by mouth once daily. ammonium lactate (LAC-HYDRIN) 12 % cream Apply to affected area as needed. Apply on thick skin apixaban (ELIQUIS) 5 mg tab(s) Take 1 tablet by mouth two times a day. apixaban (ELIQUIS) 5 mg tab(s) Take 2 tablets (10 mg) by mouth twice daily for 6 days. Then take 1 tablet (5 mg) by mouth twice daily lisinopril (ZESTRIL) 40 mg tablet Take 1 tablet by mouth once daily. hydroCHLOROthiazide 25 mg tablet Take 1 tablet by mouth once daily. gabapentin (NEURONTIN) 300 mg capsule Take 300 mg by mouth daily at bedtime. atorvastatin (LIPITOR) 40 mg tablet Take 1 tablet by mouth once daily. levothyroxine (SYNTHROID) 125 mcg tablet TAKE 1 TABLET BY MOUTH EVERY DAY ON AN EMPTY STOMACH FOR THYROID CPAP AutoPAP [id number]. Mask per preference, tubing, filters, humidity. Lifetime Supplies. Dx: G47.33. Fax 30 day compliance report to [phone]. CPAP Please provide mask fitting. Pt with subjective and some degree objective leaks. Prefers nasal type mask. Thank you. DME = [employer] acetaminophen 650 mg CR tablet Take 650 mg by mouth as needed. aspirin, enteric coated (ASPIRIN, ENTERIC COATED) 81 mg EC tablet Take 81 mg by mouth once daily. MULTIVITAMIN,TX-MINERALS ORAL TAB Take one(1) tablet daily. amoxicillin (POLYMOX, AMOXIL) 500 mg capsule Take f (more content not included)... Normal [facility] 01[facility]22[facility]20[facility] FRAN PAREKH ([id number]) 1945 M Date Time Provider Department 01/22/24 AGNES DIAZ During your visit today, we recorded the following information about you: Cassidy Cantu MA 01/22/2024 10:27 AM Signed ----- Message from Agnes Diaz MD sent at 01/22/2024 8:34 AM EDT ----- US negative for superficial or deep clot. Eunice Bruce LPN 01/22/2024 1:32 PM Signed Patient telephoned and notified. Eunice Bruce LPN Allergies As of Date: 01/22/2024 Noted Allergy Reaction NORVASC (AMLODIPINE BESYLATE) 09/14/2016 7 - Swelling Comments: pedal edema VENOM-WASP 01/14/2005 7 - Swelling ZITHROMAX (AZITHROMYCIN) 01/14/2005 9 - Itching Date Reviewed: 01/22/2024 Reviewed by: Sissy Campbell LPN - Fully Assessed Reason for Visit: Results [95] Prescriptions as of 01/22/2024 - doxycycline (VIBRA-TABS) 100 mg tablet Take 1 tablet by mouth two times a day for 10 days. - cephALEXin (KEFLEX) 500 mg capsule Take 1 capsule by mouth three times a day. - metoprolol succinate ER (TOPROL XL) 50 mg 24 hr tablet Take 1 tablet by mouth once daily. - ammonium lactate (LAC-HYDRIN) 12 % cream Apply to affected area as needed. Apply on thick skin - apixaban (ELIQUIS) 5 mg tab(s) Take 1 tablet by mouth two times a day. - apixaban (ELIQUIS) 5 mg tab(s) Take 2 tablets (10 mg) by mouth twice daily for 6 days. Then take 1 tablet (5 mg) by mouth twice daily - lisinopril (ZESTRIL) 40 mg tablet Take 1 tablet by mouth once daily. - hydroCHLOROthiazide 25 mg tablet Take 1 tablet by mouth once daily. - gabapentin (NEURONTIN) 300 mg capsule Take 300 mg by mouth daily at bedtime. - atorvastatin (LIPITOR) 40 mg tablet Take 1 tablet by mouth once daily. - levothyroxine (SYNTHROID) 125 mcg tablet TAKE 1 TABLET BY MOUTH EVERY DAY ON AN EMPTY STOMACH FOR THYROID - amoxicillin (POLYMOX, AMOXIL) 500 mg capsule Take four capsules one hour before dental procedure. - CPAP AutoPAP [id number]. Mask per preference, tubing, filters, humidity. Lifetime Supplies. Dx: G47.33. Fax 30 day compliance report to [phone]. - CPAP Please provide mask fitting. Pt [...] one(1) tablet daily. Facility-Administered Medications as of 01/22/2024 - perflutren lipid microspheres 1.3 mL in NaCl (PF) 0.9% 10 mL injection (DEFINITY) - sodium chloride 0.9 % (flush) 10 mL (BD POSIFLUSH) Problem List As Of Date 01/22/2024 Noted Resolved Primary hypertension [I10] 03/11/2005 Hypertrophy of prostate with urinary obstructio*06/01/2006 BLADDER NECK OBSTRUCTION [N32.0] 06/01/2006 Plantar fascial fibromatosis [M72.2] 11/02/2006 05/09/2014 Ingrowing nail [L60.0] 11/26/2007 05/09/2014 Hypothyroidism [E03.9] 03/25/2009 Open fracture of distal phalangeal tuft [FRI667*08/31/2011 05/09/2014 Internal derangement of right knee [M23.91] [...] ASHD (arteriosclerotic heart disease) [I25.10] 09/14/2016 Hyperlipidemia [E78.5] 09/14/2016 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] 06/08/2018 [...] edema [R60.0] 04/29/2020 Venous insufficiency (chronic) (peripheral) [I8*04/29/2020 Cervical radiculopathy [M54.12] 02/08/2021 Chronic low back pain with bilateral sciatica [*12/08/2021 Personal history of fall [Z91.81] 12/08/2021 Age-related physical debility [R54] 12/08/2021 Obesity, Class III, BMI 40-49.9 (morbid obesity*11/02/2022 Chronic bilateral low back pain with bilateral *11/29/2022 Stage 3b chronic kidney disease (HCC) [N18.32] 05/15/2023 Acute saddle pulmonary embolism without acute c*10/23/2023 Acute deep vein thrombosis (DVT) of femoral vei*10/23/2023 Ac (more content not included)... Normal [facility] CBC W Auto Differential pane l (Bld)on 01-19-2024 Basophils (Bld) [#/Vol] 0.04 10*3/uL [facility] Basophils/100 WBC (Bld) 0.4 % [facility] Differential cell count method Nom (Bld) Auto [facility] Eosinophils (Bld) [#/Vol] 0.20 10*3/uL [facility] Eosinophils/100 WBC (Bld) 1.9 % [facility] Erythrocyte distribution width (RBC) [Ratio] 13.6 % 11.5 - 15.0 % [facility] Hematocrit (Bld) [Volume fraction] 44.2 % 39.0 - 51.0 % [facility] Hemoglobin (Bld) [Mass/Vol] 14.5 g/dL 13.0 - 17.0 g/dL [facility] Immature granulocytes (Bld) [#/Vol] 0.03 10*3/uL [facility] Immature granulocytes/100 WBC (Bld) 0.3 % [facility] Interpretation and review of laboratory results Abnormal [facility] Lymphocytes (Bld) [#/Vol] 2.23 10*3/uL [facility] Lymphocytes/100 WBC (Bld) 21.6 % [facility] MCH (RBC) [Entitic mass] 31.7 pg 26.0 - 34.0 pg [facility] MCHC (RBC) [Mass/Vol] 32.8 g/dL 30.5 - 36.0 g/dL [facility] MCV (RBC) [Entitic vol] 96.7 fL 80.0 - 100.0 fL [facility] Monocytes (Bld) [#/Vol] 1.03 10*3/uL High [facility] Monocytes/100 WBC (Bld) 10.0 % [facility] Neutrophils (Bld) [#/Vol] 6.78 10*3/uL [facility] Neutrophils/100 WBC (Bld) 65.8 % [facility] Nucleated RBC (Bld) [#/Vol] [facility] Nucleated RBC/100 WBC (Bld) [Ratio] 0.0 % /100 WBC [facility] Platelet mean volume (Bld) [Entitic vol] 10.2 fL 9.0 - 12.7 fL [facility] Platelets (Bld) [#/Vol] 255 10*3/uL [facility] RBC (Bld) [#/Vol] 4.57 10*6/uL 4.20 - 6.0 0 m/uL [facility] WBC (Bld) [#/Vol] 10.31 10*3/uL [facility] Basophils (Bld) [#/Vol] 0.04 10*3/uL Normal <0.11 [facility] Comment on above: Order Comment: Speci men Type: BLOOD SPECIMENOrdering Facility: [facility] Address: [address] [place] [address] Performed By: #### 5 7021-8 ####[facility] LABCLIA [id number] [place] [address] [place] Basophils/100 WBC (Bld) 0.4 % Normal [facility] Comment on above: Order Comment: Speci men Type: BLOOD SPECIMENOrdering Facility: [facility] Address: [address] [place] [address] Performed By: #### 5 7021-8 ####[facility] LABCLIA [id number] [place] [address] [place] Differential cell count method Nom (Bld) Auto Normal [facility] Comment on above: Order Comment: Speci men Type: BLOOD SPECIMENOrdering Facility: [facility] Address: [address] [place] [address] Performed By: #### 5 7021-8 ####[facility] LABCLIA [id number] [place] [address] [place] Eosinophils (Bld) [#/Vol] 0.20 10*3/uL Normal <0.46 [facility] Comment on above: Order Comment: Speci men Type: BLOOD SPECIMENOrdering Facility: [facility] Address: [address] [place] [address] Performed By: #### 5 7021-8 ####[facility] LABCLIA [id number] [place] [address] [place] Eosinophils/100 WBC (Bld) 1.9 % Normal [facility] Comment on above: Order Comment: Speci men Type: BLOOD SPECIMENOrdering Facility: [facility] Address: [address] [place] [address] Performed By: #### 5 7021-8 ####[facility] LABIA [id number] [place] [address] [place] Erythrocyte distribution width (RBC) [Ratio] 13.6 % Normal 11.5-15.0 [facility] Comment on above: Order Comment: Speci men Type: BLOOD SPECIMENOrdering Facility: [facility] Address: [address] [place] [address] Performed By: #### 5 7021-8 ####[facility] LABIA [id number] [place] [address] [place] Hematocrit (Bld) [Volume fraction] 44.2 % Normal 39.0-51.0 [facility] Comment on above: Order Comment: Speci men Type: BLOOD SPECIMENOrdering Facility: [facility] Address: [address] [place] [address] Performed By: #### 5 7021-8 ####[facility] LABCLIA [id number] [place] [address] [place] Hemoglobin (Bld) [Mass/Vol] 14.5 g/dL Normal 13.0-17.0 [facility] Comment on above: Order Comment: Speci men Type: BLOOD SPECIMENOrdering Facility: [facility] Address: [address] [place] [address] Performed By: #### 5 7021-8 ####[facility] LABIA [id number] [place] [address] [place] Immature granulocytes (Bld) [#/Vol] 0.03 10*3/uL Normal <0.10 [facility] Comment on above: Order Comment: Speci men Type: BLOOD SPECIMENOrdering Facility: [facility] Address: [address] [place] [address] Performed By: #### 5 7021-8 ####[facility] LABCLIA [id number] [place] [address] [place] Immature granulocytes/100 WBC (Bld) 0.3 % Normal [facility] Comment on above: Order Comment: Speci men Type: BLOOD SPECIMENOrdering Facility: [facility] Address: [address] [place] [address] Performed By: #### 5 7021-8 ####[facility] LABCLIA [id number] [place] [address] [place] Lymphocytes (Bld) [#/Vol] 2.23 10*3/uL Normal 1.00-4.00 [facility] Comment on above: Order Comment: Speci men Type: BLOOD SPECIMENOrdering Facility: [facility] Address: [address] [place] [address] Performed By: #### 5 7021-8 ####[facility] LABCLIA [id number] [place] [address] [place] Lymphocytes/100 WBC (Bld) 21.6 % Normal [facility] Comment on above: Order Comment: Speci men Type: BLOOD SPECIMENOrdering Facility: [facility] Address: [address] [place] [address] Performed By: #### 5 7021-8 ####[facility] LABCLIA [id number] [place] [address] [place] MCH (RBC) [Entitic mass] 31.7 pg Normal 26.0-34.0 [facility] Comment on above: Order Comment: Speci men Type: BLOOD SPECIMENOrdering Facility: [facility] Address: [address] [place] [address] Performed By: #### 5 7021-8 ####[facility] LABCLIA [id number] [place] [address] [place] MCHC (RBC) [Mass/Vol] 32.8 g/dL Normal 30.5-36.0 [facility] Comment on above: Order Comment: Speci men Type: BLOOD SPECIMENOrdering Facility: [facility] Address: [address] [place] [address] Performed By: #### 5 7021-8 ####[facility] LABCLIA [id number] [place] [address] [place] MCV (RBC) [Entitic vol] 96.7 fL Normal 80.0-100.0 [facility] Comment on above: Order Comment: Speci men Type: BLOOD SPECIMENOrdering Facility: [facility] Address: [address] [place] [address] Performed By: #### 5 7021-8 ####[facility] LABCLIA [id number] [place] [address] [place] Monocytes (Bld) [#/Vol] 1.03 10*3/uL High <0.87 [facility] Comment on above: Order Comment: Speci men Type: BLOOD SPECIMENOrdering Facility: [facility] Address: [address] [place] [address] Performed By: #### 5 7021-8 ####[facility] LABCLIA [id number] [place] [address] [place] Monocytes/100 WBC (Bld) 10.0 % Normal [facility] Comment on above: Order Comment: Speci men Type: BLOOD SPECIMENOrdering Facility: [facility] Address: [address] [place] [address] Performed By: #### 5 7021-8 ####[facility] LABCLIA [id number] [place] [address] [place] Neutrophils (Bld) [#/Vol] 6.78 10*3/uL Normal 1.45-7.50 [facility] Comment on above: Order Comment: Speci men Type: BLOOD SPECIMENOrdering Facility: [facility] Address: [address] [place] [address] Performed By: #### 5 7021-8 ####[facility] LABCLIA [id number] [place] [address] [place] Neutrophils/100 WBC (Bld) 65.8 % Normal [facility] Comment on above: Order Comment: Speci men Type: BLOOD SPECIMENOrdering Facility: [facility] Address: [address] [place] [address] Performed By: #### 5 7021-8 ####[facility] LABCLIA [id number] [place] [address] [place] Nucleated RBC (Bld) [#/Vol] 10*3/uL Normal <0.01 [facility] Comment on above: Order Comment: Speci men Type: BLOOD SPECIMENOrdering Facility: [facility] Address: [address] [place] [address] Performed By: #### 5 7021-8 ####[facility] LABCLIA [id number] [place] [address] [place] Nucleated RBC/100 WBC (Bld) [Ratio] 0.0 /100 WBC Normal [facility] Comment on above: Order Comment: Speci men Type: BLOOD SPECIMENOrdering Facility: [facility] Address: [address] [place] [address] Performed By: #### 5 7021-8 ####[facility] LABCLIA [id number] [place] [address] [place] Platelet mean volume (Bld) [Entitic vol] 10.2 fL Normal 9.0-12.7 [facility] Comment on above: Order Comment: Speci men Type: BLOOD SPECIMENOrdering Facility: [facility] Address: [address] [place] [address] Performed By: #### 5 7021-8 ####[facility] LABIA [id number] [place] [address] [place] Platelets (Bld) [#/Vol] 255 10*3/uL Normal 150-400 [facility] Comment on above: Order Comment: Speci men Type: BLOOD SPECIMENOrdering Facility: [facility] Address: [address] [place] [address] Performed By: #### 5 7021-8 ####[facility] LABIA [id number] [place] [address] [place] RBC (Bld) [#/Vol] 4.57 10*6/uL Normal 4.20-6.00 [facility] Comment on above: Order Comment: Speci men Type: BLOOD SPECIMENOrdering Facility: [facility] Address: [address] [place] [address] Performed By: #### 5 7021-8 ####[facility] LABIA [id number] [place] [address] [place] WBC (Bld) [#/Vol] 10.31 10*3/uL Normal 3.70-11.00 [facility] Comment on above: Order Comment: Speci men Type: BLOOD SPECIMENOrdering Facility: [facility] Address: [address] [place] [address] Performed By: #### 5 7021-8 ####[facility] LABIA [id number] [place] [address] [place] CNOVon 01-19-2024 CNOV Office Visit (FAMPWS ) -- IGLESIAFRAN ([id number]) 1945 M Date Time Provider Department 01/19/24 9:40 AM MARILIA OROZCO During your visit today, we recorded the following information about you: Temperature Pulse Respiration Blood pressure 98 degrees 84/minute 18/minute 132/94 Weight 128 kg LashandalogMarilia stuart APRN.SUPERVISOR REMELT 01/29/2024 8:11 AM Signed 01/19/2024 Patient presents with: Fall: X1 week ago, hurt right knee and has some swelling in the right lower landry SUBJECTIVE: This is a 78 year old that is here today for Above Complaints. ONSET: one week after a fall LOCATION: right leg and landry DURATION: constant CHARACTERISTICS: swelling and redness AGGRAVATING FEATURES: standing ALLEVIATING FEATURES: ice RADIATION: knee down to landry Saw line builder yesterday who ordered an xray which has not resulted at this time. Concerned with the swelling and redness to the lower leg. 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 Taking Eliquis as prescribed without side effects. Has been icing area with mild relief. No hx of knee injury or surery. Denies fevers or chills. PAST MEDICAL HISTORY Diagnosis Date Angina at [...] of skin of nose Dr. Chowdary in [place] Stage 3a chronic kidney disease (HCC) Venous insufficiency ALLERGIES Norvasc [Amlodipine Besylate], Venom-Wasp, and Zithromax [Azithromycin] MEDICATIONS Current Outpatient Medications Medication Sig metoprolol succinate ER (TOPROL XL) 50 mg 24 hr tablet Take 1 tablet by mouth once daily. ammonium lactate (LAC-HYDRIN) 12 % cream Apply to affected area as needed. Apply on thick skin apixaban (ELIQUIS) 5 mg tab(s) Take 1 tablet by mouth two times a day. apixaban (ELIQUIS) 5 mg tab(s) Take 2 tablets (10 mg) by mouth twice daily for 6 days. Then take 1 tablet (5 mg) by mouth twice daily lisinopril (ZESTRIL) 40 mg tablet Take 1 tablet by mouth once daily. hydroCHLOROthiazide 25 mg tablet Take 1 tablet by mouth once daily. gabapentin (NEURONTIN) 300 mg capsule Take 300 mg by mouth daily at bedtime. atorvastatin (LIPITOR) 40 mg tablet Take 1 tablet by mouth once daily. levothyroxine (SYNTHROID) 125 mcg tablet TAKE 1 TABLET BY MOUTH EVERY DAY ON AN EMPTY STOMACH FOR THYROID amoxicillin (POLYMOX, AMOXIL) 500 mg capsule Take four capsules one hour before dental procedure. (Patient not taking: Reported on 12/19/2023) CPAP AutoPAP [id number]. Mask per preference, tubing, filters, humidity. Lifetime Supplies. Dx: G47.33. Fax 30 day compliance report to [phone]. CPAP Please provide mask fitting. Pt with [...] Social History Tobacco Use Smoking status: Never Passive exposure: Past Smokeless tobacco: Never Vaping Use Vaping status: Never Used Substance Use Topics Alcohol use: No Drug use: No REVIEW OF SYSTEMS All other reviewed and negative other than HPI. OBJECTIVE: BP 132/94 Pulse 84 Resp 18 Wt 128 kg (282 lb 3 oz) SpO2 98% BMI 38.27 kg/m? . Vital signs reviewed by this provider. APPEARANCE Well appearing, alert, in no acute distress, well-hydrated, well nourished. RIGHT LEG: moderate swelling to RLE in comparison to left. Erythema and warmth over landry. Faint ecchymosis laterally inferior to knee. Able to flex and extend with some discomfort on flexion. Mild TTP over patella. Depression Screening Never done Anxiety Screening Never done Advance Directive Discussion Never done (more content not included)... Normal [facility] US DVT LOWER RTon 01-19-2024 US DVT LOWER RT * * *Final Report* * * DATE OF EXAM: Jan 19 2024 6:45PM MDU 1007 - US DVT LOWER RT / PROCEDURE REASON: multiple diagnoses * * * * Physician Interpretation * * * * EXAMINATION: RIGHT LOWER EXTREMITY DEEP VENOUS ULTRASOUND WITH DOPPLER IMAGING CLINICAL HISTORY: Edema and pain. Fall one week ago, right knee injury, landry swelling and redness. TECHNIQUE: Grayscale with compression maneuvers, color Doppler and spectral Doppler imaging of the right proximal deep veins was performed. Grayscale with compression maneuvers of the peroneal and posterior tibial veins was performed. The right great and small saphenous veins were evaluated at their insertion to the deep system. The contralateral common femoral vein was imaged for comparison. Images were obtained and stored in a permanent archive. MQ: USLER_1 COMPARISON: None RESULT: Evaluation is somewhat limited secondary to patient's body habitus and edema. RIGHT LOWER EXTREMITY PROXIMAL DEEP VEINS Distal External Iliac, Common Femoral and proximal Profunda Veins: Compression: Normal Doppler: Normal, spontaneous respirophasic flow. Normal response to augmentation. Femoral vein: Compression: Normal Doppler: Normal, spontaneous flow. Normal response to augmentation. Popliteal vein: Compression: Normal Doppler: Normal, spontaneous flow. Normal response to augmentation. CALF DEEP VEINS Peroneal veins: Normal compression. Posterior tibial veins: Normal compression. Gastrocnemius and Soleal veins: Not imaged. SUPERFICIAL VEINS Great saphenous: Patent and compressible at insertion into common femoral vein; not otherwise assessed. Small Saphenous: Patent and compressible in the proximal calf, not otherwise assessed. LEFT LOWER EXTREMITY (FOR COMPARISON) Common Femoral Vein: Compression: Normal Doppler: Normal, spontaneous respirophasic flow. Normal response to augmentation. IMPRESSION: Negative study for proximal DVT in the right lower extremity. Negative study for calf DVT in the right lower extremity. Negative study for superficial thrombophlebitis in the imaged segments of the right lower extremity. Moderate right lower extremity edema of unclear etiology. Clinical correlation is recommended. Voltage Regulator Assembler: [facility] Transcribe Date/Time: Jan 19 2024 6:56P Dictated by : DANIELLE VILLASENOR MD This examination was interpreted and the report reviewed and electronically signed by: DANIELLE VILLASENOR MD on Jan 19 2024 6:58PM EST [id number] [facility] Lower extremity vein - ri luis 01-19-2024 IMPRESSION: Negative study for proximal DVT in the right lower extremity. Negative study for calf DVT in the right lower extremity. Negative study for superficial thrombophlebitis in the imaged segments of the right lower extremity. Moderate right lower extremity edema of unclear etiology. Clinical correlation is recommended. Voltage Regulator Assembler: [facility] Transcribe Date/Time: Jan 19 2024 6:56P Dictated by : DANIELLE VILLASENOR MD This examination was interpreted and the report reviewed and electronically signed by: DANIELLE VILLASENOR MD on Jan 19 2024 6:58PM [facility] RADIOLOG[facility] * * *Final Report* * * DATE OF EXAM: Jan 19 2024 6:45PM PRRachel 1007 - US DVT LOWER RT / PROCEDURE REASON: multiple diagnoses * * * * Physician Interpretation * * * * EXAMINATION: RIGHT LOWER EXTREMITY DEEP VENOUS ULTRASOUND WITH DOPPLER IMAGING CLINICAL HISTORY: Edema and pain. Fall one week ago, right knee injury, landry swelling and redness. TECHNIQUE: Grayscale with compression maneuvers, color Doppler and spectral Doppler imaging of the right proximal deep veins was performed. Grayscale with compression maneuvers of the peroneal and posterior tibial veins was performed. The right great and small saphenous veins were evaluated at their insertion to the deep system. The contralateral common femoral vein was imaged for comparison. Images were obtained and stored in a permanent archive. MQ: USLER_1 COMPARISON: None RESULT: Evaluation is somewhat limited secondary to patient's body habitus and edema. RIGHT LOWER EXTREMITY PROXIMAL DEEP VEINS Distal External Iliac, Common Femoral and proximal Profunda Veins: Compression: Normal Doppler: Normal, spontaneous respirophasic flow. Normal response to augmentation. Femoral vein: Compression: Normal Doppler: Normal, spontaneous flow. Normal response to augmentation. Popliteal vein: Compression: Normal Doppler: Normal, spontaneous flow. Normal response to augmentation. CALF DEEP VEINS Peroneal veins: Normal compression. Posterior tibial veins: Normal compression. Gastrocnemius and Soleal veins: Not imaged. SUPERFICIAL VEINS Great saphenous: Patent and compressible at insertion into common femoral vein; not otherwise assessed. Small Saphenous: Patent and compressible in the proximal calf, not otherwise assessed. LEFT LOWER EXTREMITY (FOR COMPARISON) Common Femoral Vein: Compression: Normal Doppler: Normal, spontaneous respirophasic flow. Normal response to augmentation. [facility] Provider, [facility] - 01/19/2024 * * *Final Report* * * DATE OF EXAM: Jan 19 2024 6:45PM MDU 1007 - US DVT LOWER RT / PROCEDURE REASON: multiple diagnoses * * * * Physician Interpretation * * * * EXAMINATION: RIGHT LOWER EXTREMITY DEEP VENOUS ULTRASOUND WITH DOPPLER IMAGING CLINICAL HISTORY: Edema and pain. Fall one week ago, right knee injury, landry swelling and redness. TECHNIQUE: Grayscale with compression maneuvers, color Doppler and spectral Doppler imaging of the right proximal deep veins was performed. Grayscale with compression maneuvers of the peroneal and posterior tibial veins was performed. The right great and small saphenous veins were evaluated at their insertion to the deep system. The contralateral common femoral vein was imaged for comparison. Images were obtained and stored in a permanent archive. MQ: [id number]_1 COMPARISON: None RESULT: Evaluation is somewhat limited secondary to patient's body habitus and edema. RIGHT LOWER EXTREMITY PROXIMAL DEEP VEINS Distal External Iliac, Common Femoral and proximal Profunda Veins: Compression: Normal Doppler: Normal, spontaneous respirophasic flow. Normal response to augmentation. Femoral vein: Compression: Normal Doppler: Normal, spontaneous flow. Normal response to augmentation. Popliteal vein: Compression: Normal Doppler: Normal, spontaneous flow. Normal response to augmentation. CALF DEEP VEINS Peroneal veins: Normal compression. Posterior tibial veins: Normal compression. Gastrocnemius and Soleal veins: Not imaged. SUPERFICIAL VEINS Great saphenous: Patent and compressible at insertion into common femoral vein; not otherwise assessed. Small Saphenous: Patent and compressible in the proximal calf, not otherwise assessed. LEFT LOWER EXTREMITY (FOR COMPARISON) Common Femoral Vein: Compression: Normal Doppler: Normal, spontaneous respirophasic flow. Normal response to augmentation. IMPRESSION IMPRESSION: Negative study for proximal DVT in the right lower extremity. Negative study for calf DVT in the right lower extremity. Negative study for superficial thrombophlebitis in the imaged segments of the right lower extremity. Moderate right lower extremity edema of unclear etiology. Clinical correlation is recommended. Voltage Regulator Assembler: PSCB Transcribe Date/Time: Jan 19 2024 6:56P Dictated by : DANIELLE VILLASENOR MD This examination was interpreted and the report reviewed and electronically signed by: DANIELLE VILLASENOR MD on Jan 19 2024 6:58PM EST [facility] Radiology Study observation (narrative) [facility] US Lower extremity vein - ri ghtOrdered By: Priscilla Provider on 01-19-2024 [facility] CNOVon 01-18-2024 CNOV Office Visit (UCWSTR ) -- FRAN PAREKH ([id number]) 1945 M Date Time Provider Department 01/18/24 12:00 PM JOLEEN MUNOZ [facility] During your visit today, we recorded the following information about you: Temperature Pulse Respiration Blood pressure 97.4 degrees 79/minute 18/minute 126/76 Weight 130.2 kg Joleen Munoz APRN.SUPERVISOR REMELT 01/18/2024 12:13 PM Signed Patient is seen by his physician. The physician already placed orders for x-ray and orthopedics consult. Confusion at the desk patient accidentally got checked in for a full visit. Patient is not here for full visit. Patient is just here for his x-ray. This will be corrected patient was not seen here. Allergies As of Date: 01/18/2024 Noted Allergy Reaction NORVASC (AMLODIPINE BESYLATE) 09/14/2016 7 - Swelling Comments: pedal edema VENOM-WASP 01/14/2005 7 - Swelling ZITHROMAX (AZITHROMYCIN) 01/14/2005 9 - Itching Date Reviewed: 01/18/2024 Reviewed by: Alethea Brasher MA - Fully Assessed Reason for Visit: Right Knee Pain [1209] Cmt: X 6 days Primary Visit Diagnosis:Pain [R52] Prescriptions as of 01/18/2024 - metoprolol succinate ER (TOPROL XL) 50 mg 24 hr tablet Take 1 tablet by mouth once daily. - ammonium lactate (LAC-HYDRIN) 12 % cream Apply to affected area as needed. Apply on thick skin - apixaban (ELIQUIS) 5 mg tab(s) Take 1 tablet by mouth two times a day. - apixaban (ELIQUIS) 5 mg tab(s) Take 2 tablets (10 mg) by mouth twice daily for 6 days. Then take 1 tablet (5 mg) by mouth twice daily - lisinopril (ZESTRIL) 40 mg tablet Take 1 tablet by mouth once daily. - hydroCHLOROthiazide 25 mg tablet Take 1 tablet by mouth once daily. - gabapentin (NEURONTIN) 300 mg capsule Take 300 mg by mouth daily at bedtime. - atorvastatin (LIPITOR) 40 mg tablet Take 1 tablet by mouth once daily. - levothyroxine (SYNTHROID) 125 mcg tablet TAKE 1 TABLET BY MOUTH EVERY DAY ON AN EMPTY STOMACH FOR THYROID - amoxicillin (POLYMOX, AMOXIL) 500 mg capsule Take four capsules one hour before dental procedure. - CPAP AutoPAP [id number]. Mask per preference, tubing, filters, humidity. Lifetime Supplies. Dx: G47.33. Fax 30 day compliance report to [phone]. - CPAP Please provide mask fitting. Pt [...] one(1) tablet daily. Facility-Administered Medications as of 01/18/2024 - perflutren lipid microspheres 1.3 mL in NaCl (PF) 0.9% 10 mL injection (DEFINITY) - sodium chloride 0.9 % (flush) 10 mL (BD POSIFLUSH) Problem List As Of Date 01/18/2024 Noted Resolved Primary hypertension [I10] 03/11/2005 Hypertrophy of prostate with urinary obstructio*06/01/2006 BLADDER NECK OBSTRUCTION [N32.0] 06/01/2006 Plantar fascial fibromatosis [M72.2] 11/02/2006 05/09/2014 Ingrowing nail [L60.0] 11/26/2007 05/09/2014 Hypothyroidism [E03.9] 03/25/2009 Open fracture of distal phalangeal tuft [ALG045*08/31/2011 05/09/2014 Internal derangement of right knee [M23.91] [...] ASHD (arteriosclerotic heart disease) [I25.10] 09/14/2016 Hyperlipidemia [E78.5] 09/14/2016 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] 06/08/2018 [...] edema [R60.0] 04/29/2020 Venous insufficiency (chronic) (peripheral) [I8*04/29/2020 Cervical radiculopathy [M54.12] 02/08/2021 Chronic low back pain with bilateral sciatica [*12/08/2021 Personal history of fall [Z91.81] 12/08/2021 Age-related physical debility [R54] 12/08/2021 Obesity, Class III, BMI 40-49.9 (morbid obesity*11/02/2022 Chronic bilateral low back pain with bilateral *11/29/2022 Stage 3b chronic kidney disease (HCC) [N18.32] 05/15/2023 Acute saddle pulmonary embolism wit (more content not included)... [facility] CN Office Visit (PUFAMO ) -- FRAN PAREKH ([id number]) 1945 M Date Time Provider Department 01/18/24 9:00 AM VICTOR MANUEL SAVAGE During your visit today, we recorded the following information about you: Pulse Respiration Blood pressure 72/minute 18/minute 143/86 Victor Manuel Savage DO 01/18/2024 9:33 AM Signed [facility] Initial Visit January 18, 2024 I had the pleasure of seeing Fran Parekh in consultation at the request of for Pulmonary Hypertension. Summary of this visit and my recommendations will be relayed to the referring physician by way of electronic communication or by mail. PCP: Agnes Diaz MD Referring Provider: Subjective: I had the pleasure of seeing Fran Parekh in consultation for continued evaluation and and management of Pulmonary Hypertension. Summary of this visit and my recommendations will be relayed to the referring physician and primary care physician by way of electronic communication or by mail. HPI: Mr. Parekh is a 78 year old male with a PMH of DVT/PE, who presents today for evaluation of pulmonary hypertension. SYMPTOMS of PH / Right Heart failure?: Denies lower extremity edema, abdominal swelling/bloating/distensi on or early satiety, palpitations, chest tightness, lightheadedness, dizziness, syncope. She denies history of hospitalizations for heart failure. Additional History: MEDICATIONS: metoprolol succinate ER (TOPROL XL) 50 mg 24 hr tabletTake 1 tablet by mouth once daily.Disp: 90 tabletRfl: 1 ammonium lactate (LAC-HYDRIN) 12 % creamApply to affected area as needed. Apply on thick skinDisp: 140 gRfl: 1 apixaban (ELIQUIS) 5 mg tab(s)Take 1 tablet by mouth two times a day.Disp: 60 tabletRfl: 2 apixaban (ELIQUIS) 5 mg tab(s)Take 2 tablets (10 mg) by mouth twice daily for 6 days. Then take 1 tablet (5 mg) by mouth twice dailyDisp: 72 tabletRfl: 0 lisinopril (ZESTRIL) 40 mg tabletTake 1 tablet by mouth once daily.Disp: 90 tabletRfl: 1 hydroCHLOROthiazide 25 mg tabletTake 1 tablet by mouth once daily.Disp: 90 tabletRfl: 1 gabapentin (NEURONTIN) 300 mg capsuleTake 300 mg by mouth daily at bedtime.Disp: Rfl: atorvastatin (LIPITOR) 40 mg tabletTake 1 tablet by mouth once daily.Disp: 90 tabletRfl: 3 levothyroxine (SYNTHROID) 125 mcg tabletTAKE 1 TABLET BY MOUTH EVERY DAY ON AN EMPTY STOMACH FOR THYROIDDisp: 90 tabletRfl: 3 CPAPAutoPAP [id number]. Mask per preference, tubing, filters, humidity. Lifetime Supplies. Dx: G47.33. Fax 30 day compliance report to [phone].Disp: 1 EachRfl: 999 CPAPPlease provide mask fitting. Pt with subjective and some degree objective leaks. Prefers nasal type mask. Thank you. DME = FreshAireDisp: 1 EachRfl: 99 acetaminophen 650 mg CR tabletTake 650 mg by mouth as needed.Disp: Rfl: aspirin, enteric coated (ASPIRIN, ENTERIC COATED) 81 mg EC tabletTake 81 mg by mouth once daily.Disp: Rfl: MULTIVITAMIN,TX-MINERALS ORAL TABTake one(1) tablet daily.Disp: 60Rfl: 0 amoxicillin (POLYMOX, AMOXIL) 500 mg capsuleTake four capsules one hour before dental procedure.Disp: 4 capsuleRfl: 3 (Patient not taking: Reported on 12/19/2023) ALLERGIES: ALLERGIES Allergen Reactions Norvasc [Amlodipine* Swelling pedal edema Venom-Wasp Swelling Zithromax [Azithrom* Itching HISTORY: PAST MEDICAL HISTORY Diagnosis Date Angina at [...] of skin of nose Dr. Chowdary in [place] Stage 3a chronic kidney disease (HCC) Venous insufficiency PAST SURGICAL HISTORY Procedure Laterality Date ARTHRP ACETBLR/PROX FEM PROSTC AGRFT/ALGRFT Right 06/03/2019 Hip replacement, total COLONOSCOPY FLX DX W/COLLJ SPEC WHEN PFRMD 04/21/11 Repeat 10 [id number] LASER GREENLIGHT prostate, [place] NEUROPLASTY AND/TRANSPOS MEDIAN NRV CARPAL TUNNE Left 01/17/2020 Left carpal tunnel release NEUROPLASTY AND/TRANSPOS MEDIAN NRV CARPAL TUNNE Right 03/04/2020 Right carpal tunnel release RPR UMBILICAL HRNA 5 YRS/> REDUCIBLE TONSILLECTOMY PRIMARY/SECONDARY Tonsillectomy FAMILY HISTORY Problem Relation Age of Onset Heart Mother other (Myoc (more content not included)... 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 No fracture or joint effusion. IMPRESSION: Osteoarthrosis Voltage Regulator Assembler: PSCB Transcribe Date/Time: Jan 20 2024 7:28A Dictated by : ALEXANDER LUNDBERG MD This examination was interpreted and the report reviewed and electronically signed by: ALEXANDER LUNDBERG MD on Jan 20 2024 7:29AM EST [id number] Normal [facility] [id number] 01-17-2024 [id number] HNO ID: [id number] Author: YOGESH FORMAN PT Service: ? Author Type: Physical Therapist Type: [id number] Filed: 01/17/2024 23:01 Note Text: [facility] Physical Therapy Plan of Care Certification Patient Name: Fran Parekh : 1945 CC #: [id number] Date: 01/17/2024 To: Agnes Diaz,* From Therapist: Yogesh Forman PT RE: Patient Certification/ Recertification Your review, approval and electronic signature are required in order to comply with Payor: MEDICARE / Plan: MEDICARE A AND B / Product Type: Medicare / regulations. The identified Physical Therapy PLAN OF CARE for the patient is as follows: R26.81 Unsteady gait (primary encounter diagnosis) PLAN OF CARE UPDATE: Assessment: Fran Parekh demonstrates moderate improvement in rising from a chair, walking, and walking in the community. He has progressed toward goals. Patient continues to present with impairments in ADL's, balance, gait, overall function, and strength that interfere with standing, walking . Current prognosis is Good due to: current objective clinical presentation, positive past response to therapy, good support system/ coping skills. He will benefit from continued skilled therapy services to meet the updated goals for this plan of care as noted below. Updated: 01/17/24 Goals for Episode of Care: created on 12/18/23 through 02/12/24 Patient will report no falls. - Not MET, will continue Improve performance on 4 Stage Balance Test to 10 second tandem and 14 second SLS to reflect decreased fall risk. - Partially MET, will continue [place] in home exercise program including cardiovascular exercise. - MET, will continue and progress to tolerance Patient will demonstrate independent and proper use of assisstive device to allow for improved walking quality and safety therefore reducing the risk of falls. - Partially MET, will continue Perform standing, walking and all ADLs with decreased report of symptoms / pain. - Partially MET, will continue Patient Goals: reconditioning to regain prior functional level. - Partially MET, will continue Time Frame for Goals and Treatment : 02/14/24 Patient Goals: reconditioning to regain prior functional level. Planned Interventions, Frequency, and Duration: 2x/week, 4 weeks Total Number of Visits Planned: 8 Patient to be seen for Therapeutic exercise (68779), Neuromuscular re-education (79706), Therapeutic activities (45812), Self-long-term management (19081), Gait Training (26458), Patient/Family/Caregiver Education, Body Mechanics Training, General Conditioning PLAN FOR NEXT VISIT: Continue with balance training, gait training, and LE functional strengthening. For further details regarding this patient refer to the Physical Therapy electronically documented visit dated 01/17/2024. Provider Attestation I have reviewed the treatment plan for Fran Parekh, [facility]# [id number] for the period of 01/17/24 -- 02/14/24, established on 01/17/2024. Signature certifies the need for therapy services. [facility] CNTHERAPYon 01-17-2024 CNTHERAPY OT/PT/Speech Visit ( PTWS) -- FRAN PAREKH ([id number]) 1945 M Date Time Provider Department 01/17/24 3:15 PM YOGESH FORMAN PTWS Date Time Provider Department Center 01/17/2024 3:15 PM [id number], BRENT PTWS [facility] Reason for Visit: Physical Therapy [503] PT Progress Note [8416] Primary Visit Diagnosis:Unsteady gait [R26.81] Allergies As of Date: 01/17/2024 Noted Allergy Reaction NORVASC (AMLODIPINE BESYLATE) 09/14/2016 7 - Swelling Comments: pedal edema VENOM-WASP 01/14/2005 7 - Swelling ZITHROMAX (AZITHROMYCIN) 01/14/2005 9 - Itching Date Reviewed: 01/16/2024 Reviewed by: Sonya Noriega RN - Fully Assessed Prescriptions as of 01/17/2024 - metoprolol succinate ER (TOPROL XL) 50 mg 24 hr tablet Take 1 tablet by mouth once daily. - ammonium lactate (LAC-HYDRIN) 12 % cream Apply to affected area as needed. Apply on thick skin - apixaban (ELIQUIS) 5 mg tab(s) Take 1 tablet by mouth two times a day. - apixaban (ELIQUIS) 5 mg tab(s) Take 2 tablets (10 mg) by mouth twice daily for 6 days. Then take 1 tablet (5 mg) by mouth twice daily - lisinopril (ZESTRIL) 40 mg tablet Take 1 tablet by mouth once daily. - hydroCHLOROthiazide 25 mg tablet Take 1 tablet by mouth once daily. - gabapentin (NEURONTIN) 300 mg capsule Take 300 mg by mouth daily at bedtime. - atorvastatin (LIPITOR) 40 mg tablet Take 1 tablet by mouth once daily. - levothyroxine (SYNTHROID) 125 mcg tablet TAKE 1 TABLET BY MOUTH EVERY DAY ON AN EMPTY STOMACH FOR THYROID - amoxicillin (POLYMOX, AMOXIL) 500 mg capsule Take four capsules one hour before dental procedure. - CPAP AutoPAP [id number]. Mask per preference, tubing, filters, humidity. Lifetime Supplies. Dx: G47.33. Fax 30 day compliance report to [phone]. - CPAP Please provide mask fitting. Pt [...] one(1) tablet daily. Facility-Administered Medications as of 01/17/2024 - perflutren lipid microspheres 1.3 mL in NaCl (PF) 0.9% 10 mL injection (DEFINITY) - sodium chloride 0.9 % (flush) 10 mL (BD POSIFLUSH) Normal [facility] CNOVon 01-16-2024 CNOV Office Visit (CARDMM ) -- FRAN PAREKH ([id number]) 1945 M Date Time Provider Department 01/16/24 1:00 PM ECHOCARDIOGRAM JAYJAY LANGSTON During your visit today, we recorded the following information about you: Referring Provider: VICTOR MANUEL SAVAGE [[id number]] Allergies As of Date: 01/16/2024 Noted Allergy Reaction NORVASC (AMLODIPINE BESYLATE) 09/14/2016 7 - Swelling Comments: pedal edema VENOM-WASP 01/14/2005 7 - Swelling ZITHROMAX (AZITHROMYCIN) 01/14/2005 9 - Itching Date Reviewed: 01/16/2024 Reviewed by: Sonya Noriega RN - Fully Assessed Visit Diagnoses: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 - ammonium lactate (LAC-HYDRIN) 12 % cream Apply to affected area as needed. Apply on thick skin - apixaban (ELIQUIS) 5 mg tab(s) Take 1 tablet by mouth two times a day. - apixaban (ELIQUIS) 5 mg tab(s) Take 2 tablets (10 mg) by mouth twice daily for 6 days. Then take 1 tablet (5 mg) by mouth twice daily - lisinopril (ZESTRIL) 40 mg tablet Take 1 tablet by mouth once daily. - hydroCHLOROthiazide 25 mg tablet Take 1 tablet by mouth once daily. - gabapentin (NEURONTIN) 300 mg capsule Take 300 mg by mouth daily at bedtime. - atorvastatin (LIPITOR) 40 mg tablet Take 1 tablet by mouth once daily. - levothyroxine (SYNTHROID) 125 mcg tablet TAKE 1 TABLET BY MOUTH EVERY DAY ON AN EMPTY STOMACH FOR THYROID - amoxicillin (POLYMOX, AMOXIL) 500 mg capsule Take four capsules one hour before dental procedure. - CPAP AutoPAP [id number]. Mask per preference, tubing, filters, humidity. Lifetime Supplies. Dx: G47.33. Fax 30 day compliance report to [phone]. - CPAP Please provide mask fitting. Pt [...] one(1) tablet daily. Facility-Administered Medications as of 01/16/2024 - perflutren lipid microspheres 1.3 mL in NaCl (PF) 0.9% 10 mL injection (DEFINITY) - sodium chloride 0.9 % (flush) 10 mL (BD POSIFLUSH) Problem List As Of Date 01/16/2024 Noted Resolved Primary hypertension [I10] 03/11/2005 Hypertrophy of prostate with urinary obstructio*06/01/2006 BLADDER NECK OBSTRUCTION [N32.0] 06/01/2006 Plantar fascial fibromatosis [M72.2] 11/02/2006 05/09/2014 Ingrowing nail [L60.0] 11/26/2007 05/09/2014 Hypothyroidism [E03.9] 03/25/2009 Open fracture of distal phalangeal tuft [WWK532*08/31/2011 05/09/2014 Internal derangement of right knee [M23.91] [...] ASHD (arteriosclerotic heart disease) [I25.10] 09/14/2016 Hyperlipidemia [E78.5] 09/14/2016 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] 06/08/2018 [...] edema [R60.0] 04/29/2020 Venous insufficiency (chronic) (peripheral) [I8*04/29/2020 Cervical radiculopathy [M54.12] 02/08/2021 Chronic low back pain with bilateral sciatica [*12/08/2021 Personal history of fall [Z91.81] 12/08/2021 Age-related physical debility [R54] 12/08/2021 Obesity, Class III, BMI 40-49.9 (morbid obesity*11/02/2022 Chronic bilateral low back pain with bilateral *11/29/2022 Stage 3b chronic kidney disease (HCC) [N18.32] 05/15/2023 Acute saddle pulmonary embolism without acute c*10/23/2023 Acute deep vein thrombosis (DVT) of femoral vei*10/23/2023 Acute hypoxemic respiratory failure (HCC) [J96.*10/23/2023 10/27/2023 RVF (right (more content not included)... Normal [facility] ECHOon 01-16-2024 CONCLUSIONS: - Technically difficult exam due to body habitus. - Exam indication: H/O Pulmonary Embolism - The left ventricle is normal in size. There is mild concentric left ventricular hypertrophy. Left ventricular systolic function is normal. EF = 64 5% (2D 4-ch.) Definity contrast used for endocardial border detection. Normal left ventricular diastolic function. - The right ventricle is normal in size. Right ventricular systolic function is normal. - The visualized aorta is borderline dilated with a maximal dimension of 3.8 cm. - Estimated right ventricular systolic pressure is 42 mmHg consistent with mild pulmonary hypertension. Estimated right atrial pressure is 8 mmHg based on IVC assessment. - No significant valvular disease. - Exam was compared with the prior OUTSIDE echocardiographic exam performed on 10/23/2023. Prior RVSP was 86 mmHg with a dilated RV and moderately decreased function. * * * Final * * * [facility] Ech[facility] Report: Transthoracic Echo [facility] Office Date of service: 01/16/2024 1:10:40 PM Ordering physician: VICTOR MANUEL SAVAGE Indication: H/O Pulmonary Embolism Technologist: Home Sue Interpreting physician: Uziel Knowles DO PATIENT: Name: MR. FRAN PAREKH : 1945 Age: 78 years Gender: M History of hypertension and dyslipidemia. Primary rhythm: sinus. Height: 182.90 cm BSA: 2.57 m Weight: 129.70 kg BMI: 38.8 kg/m Heart rate 76 bpm Blood pressure 140/78 mmHg Technically difficult exam due to body habitus. Color Doppler was utilized to interrogate the cardiac valves assessed and spectral Doppler was utilized to determine the flow velocities and pressure gradients reported in this exam. MEASUREMENTS: Value Indexed Normal Max aortic dimension 3.8 cm Ao < 3.8 Left atrial volume 57 ml (biplane A-L) 22 ml/m Ta <= 34 LV ID (diastole) 4.7 cm (2D) 1.85 cm/m LV ID (systole) 2.6 cm (2D) 1.02 cm/m IVS, leaflet tips 1.3 cm (2D) Posterior wall thickness 1.1 cm (2D) Left ventricular mass 216 g (2D) 84 g/m LV stroke volume 68 ml (2D 4-ch.) LV end diastolic volume 106 ml (2D 4-ch.) 41.5 ml/m 34<=EDVi<75 LV end systolic volume 39 ml (2D 4-ch.) 15.1 ml/m Ejection Fraction 64 % (2D 4-ch.) EF > 52 FINDINGS: LEFT VENTRICLE The left ventricle is normal in size. There is mild concentric left ventricular hypertrophy. Left ventricular systolic function is normal globally. Normal left ventricular diastolic function. Mitral annular lateral E/e': 8.7. Mitral annular septal E/e': 8.4. Definity contrast used for endocardial border detection. Wall Motion: All scored segments are normal. RIGHT VENTRICLE The right ventricle is normal in size. Right ventricular systolic function is normal. Estimated right ventricular systolic pressure is 42 mmHg consistent with mild pulmonary hypertension. Estimated right atrial pressure is 8 mmHg based on IVC assessment. LEFT ATRIUM The left atrial cavity is normal in size. Pulmonary Veins: The pulmonary venous pattern showed normal systolic flow. RIGHT ATRIUM The right atrial cavity is normal in size. Inferior Vena Cava: The inferior vena cava appears dilated measuring 2.6 cm. The vessel decreases greater than 50 percent with inspiration. MITRAL VALVE There is trace (trace - 1+) mitral valve regurgitation. There is no thickening. The pressure half time is 68 msec. The peak mitral E/A ratio is 1.23. The average mitral E/e' ratio is 8.5. The mitral flow deceleration time is 235 msec. TRICUSPID VALVE The tricuspid valve leaflets are structurally normal. There is trace tricuspid valve regurgitation. The hepatic venous pattern showed normal systolic flow. AORTIC VALVE The aortic valve cusps are structurally normal. There is no aortic valve regurgitation. Tricuspid aortic valve. PULMONIC VALVE The pulmonic valve cusps are structurally normal. There is trace pulmonic valve regurgitation. AORTA The visualized aorta is borderline dilated. Measurements - Sinus: 3.6 cm. Mid ascending aorta 3.7 cm. Distal ascending aorta 3.8 cm. PULMONARY ARTERIES The pulmonary arteries are normal. INTERATRIAL SEPTUM The interatrial septum is normal. INTERVENTRICULAR SEPTUM The interventricular septum is normal. PERICARDIUM The pericardium is normal. CORONARY ARTERIES The coronary arteries are unseen or not interrogated. [facility] Echocardi[facility] Echocardiography Rep ort: Transthoracic Echo [facility] Office Date of service: 01/16/2024 1:10:40 PM Ordering physician: VICTOR MANUEL SAVAGE Indication: H/O Pulmonary Embolism Technologist: Home Sue Interpreting physician: Uziel Knowles DO PATIENT: Name: MR. FRAN PAREKH : 1945 Age: 78 years Gender: M History of hypertension and dyslipidemia. Primary rhythm: sinus. Height: 182.90 cm BSA: 2.57 m Weight: 129.70 kg BMI: 38.8 kg/m Heart rate 76 bpm Blood pressure 140/78 mmHg Technically difficult exam due to body habitus. Color Doppler was utilized to interrogate the cardiac valves assessed and spectral Doppler was utilized to determine the flow velocities and pressure gradients reported in this exam. MEASUREMENTS: Value Indexed Normal Max aortic dimension 3.8 cm Ao < 3.8 Left atrial volume 57 ml (biplane A-L) 22 ml/m Ta <= 34 LV ID (diastole) 4.7 cm (2D) 1.85 cm/m LV ID (systole) 2.6 cm (2D) 1.02 cm/m IVS, leaflet tips 1.3 cm (2D) Posterior wall thickness 1.1 cm (2D) Left ventricular mass 216 g (2D) 84 g/m LV stroke volume 68 ml (2D 4-ch.) LV end diastolic volume 106 ml (2D 4-ch.) 41.5 ml/m 34<=EDVi<75 LV end systolic volume 39 ml (2D 4-ch.) 15.1 ml/m Ejection Fraction 64 % (2D 4-ch.) EF > 52 FINDINGS: LEFT VENTRICLE The left ventricle is normal in size. There is mild concentric left ventricular hypertrophy. Left ventricular systolic function is normal globally. Normal left ventricular diastolic function. Mitral annular lateral E/e': 8.7. Mitral annular septal E/e': 8.4. Definity contrast used for endocardial border detection. Wall Motion: All scored segments are normal. RIGHT VENTRICLE The right ventricle is normal in size. Right ventricular systolic function is normal. Estimated right ventricular systolic pressure is 42 mmHg consistent with mild pulmonary hypertension. Estimated right atrial pressure is 8 mmHg based on IVC assessment. LEFT ATRIUM The left atrial cavity is normal in size. Pulmonary Veins: The pulmonary venous pattern showed normal systolic flow. RIGHT ATRIUM The right atrial cavity is normal in size. Inferior Vena Cava: The inferior vena cava appears dilated measuring 2.6 cm. The vessel decreases greater than 50 percent with inspiration. MITRAL VALVE There is trace (trace - 1+) mitral valve regurgitation. There is no thickening. The pressure half time is 68 msec. The peak mitral E/A ratio is 1.23. The average mitral E/e' ratio is 8.5. The mitral flow deceleration time is 235 msec. TRICUSPID VALVE The tricuspid valve leaflets are structurally normal. There is trace tricuspid valve regurgitation. The hepatic venous pattern showed normal systolic flow. AORTIC VALVE The aortic valve cusps are structurally normal. There is no aortic valve regurgitation. Tricuspid aortic valve. PULMONIC VALVE The pulmonic valve cusps are structurally normal. There is trace pulmonic valve regurgitation. AORTA The visualized aorta is borderline dilated. Measurements - Sinus: 3.6 cm. Mid ascending aorta 3.7 cm. Distal ascending aorta 3.8 cm. PULMONARY ARTERIES The pulmonary arteries are normal. INTERATRIAL SEPTUM The interatrial septum is normal. INTERVENTRICULAR SEPTUM The interventricular septum is normal. PERICARDIUM The pericardium is normal. CORONARY ARTERIES The coronary arteries are unseen or not interrogated. CONCLUSIONS: - Technically difficult exam due to body habitus. - Exam indication: H/O Pulmonary Embolism - The left ventricle is normal in size. There is mild concentric left ventricular hypertrophy. Left ventricular systolic function is normal. EF = 64 5% (2D 4-ch.) Definity contrast used for endocardial border detection. Normal left ventricular diastolic function. - The right ventricle is normal in size. Right ventricular systolic function is normal. - The visualized aorta is borderline dilated with a maximal dimension of 3.8 cm. - Estimated right ventricular systolic pressure is 42 mmHg consistent with mild pulmonary hypertension. Estimated right atrial pressure is 8 mmHg based on IVC assessment. - No significant valvular disease. - Exam was compared with the prior OUTSIDE echocardiographic exam performed on 10/23/2023. Prior RVSP was 86 mmHg with a dilated RV and moderately decreased function. * * * Final * * * [facility] [employer] [facility] : [id number] [facility] 01-10-2024 CNPN Telephone (FAMPWS) -- FRAN PAREKH ([id number]) 1945 M Date Time Provider Department 01/10/24 AGNES DIAZ [facility] During your visit today, we recorded the following information about you: Harriet Grider, CHAD 01/10/2024 11:54 AM Signed Patient calling and requesting a disc for his 05/15/23 Lumbar XRAY. He is interested in getting a disc to mil Painting surgeon. Informed pt that a message would be sent to Radiology for this request. Please call patient with an update regarding this request. CHAD Tobar Janice, RN 01/10/2024 1:[address] Samuel has never seen this patient. Perhaps it should go to radiology or the person who ordered it? Michelle Stroud, CONCEPCIÓN 01/11/2024 3:43 PM Signed CD READY FOR SENIOR RESEARCH CONSULTANT AT [facility] [place] [facility] for pt Allergies As of Date: 01/10/2024 Noted Allergy Reaction NORVASC (AMLODIPINE BESYLATE) 09/14/2016 7 - Swelling Comments: pedal edema VENOM-WASP 01/14/2005 7 - Swelling ZITHROMAX (AZITHROMYCIN) 01/14/2005 9 - Itching Date Reviewed: 12/19/2023 Reviewed by: Alisia Parada RN - Fully Assessed Reason for Visit: Disc Request [Other] Prescriptions as of 01/19/2024 - metoprolol succinate ER (TOPROL XL) 50 mg 24 hr tablet Take 1 tablet by mouth once daily. - ammonium lactate (LAC-HYDRIN) 12 % cream Apply to affected area as needed. Apply on thick skin - apixaban (ELIQUIS) 5 mg tab(s) Take 1 tablet by mouth two times a day. - apixaban (ELIQUIS) 5 mg tab(s) Take 2 tablets (10 mg) by mouth twice daily for 6 days. Then take 1 tablet (5 mg) by mouth twice daily - lisinopril (ZESTRIL) 40 mg tablet Take 1 tablet by mouth once daily. - hydroCHLOROthiazide 25 mg tablet Take 1 tablet by mouth once daily. - gabapentin (NEURONTIN) 300 mg capsule Take 300 mg by mouth daily at bedtime. - atorvastatin (LIPITOR) 40 mg tablet Take 1 tablet by mouth once daily. - levothyroxine (SYNTHROID) 125 mcg tablet TAKE 1 TABLET BY MOUTH EVERY DAY ON AN EMPTY STOMACH FOR THYROID - amoxicillin (POLYMOX, AMOXIL) 500 mg capsule Take four capsules one hour before dental procedure. - CPAP AutoPAP [id number]. Mask per preference, tubing, filters, humidity. Lifetime Supplies. Dx: G47.33. Fax 30 day compliance report to [phone]. - CPAP Please provide mask fitting. Pt [...] one(1) tablet daily. Facility-Administered Medications as of 01/19/2024 - perflutren lipid microspheres 1.3 mL in NaCl (PF) 0.9% 10 mL injection (DEFINITY) - sodium chloride 0.9 % (flush) 10 mL (BD POSIFLUSH) Problem List As Of Date 01/10/2024 Noted Resolved Primary hypertension [I10] 03/11/2005 Hypertrophy of prostate with urinary obstructio*06/01/2006 BLADDER NECK OBSTRUCTION [N32.0] 06/01/2006 Plantar fascial fibromatosis [M72.2] 11/02/2006 05/09/2014 Ingrowing nail [L60.0] 11/26/2007 05/09/2014 Hypothyroidism [E03.9] 03/25/2009 Open fracture of distal phalangeal tuft [SXQ418*08/31/2011 05/09/2014 Internal derangement of right knee [M23.91] [...] ASHD (arteriosclerotic heart disease) [I25.10] 09/14/2016 Hyperlipidemia [E78.5] 09/14/2016 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 [facility] CNTHERAPYon 01-10-2024 CNTHERAPY OT/PT/Speech Visit ( PTWS) -- FRAN PAREKH ([id number]) 1945 M Date Time Provider Department 01/10/24 10:00 AM YOGESH FORMAN PTWS Date Time Provider Department Center 01/10/2024 10:00 AM [id number], BRENT PTWS [facility] Reason for Visit: Physical Therapy [503] Primary Visit Diagnosis:Unsteady gait [R26.81] Allergies As of Date: 01/10/2024 Noted Allergy Reaction NORVASC (AMLODIPINE BESYLATE) 09/14/2016 7 - Swelling Comments: pedal edema VENOM-WASP 01/14/2005 7 - Swelling ZITHROMAX (AZITHROMYCIN) 01/14/2005 9 - Itching Date Reviewed: 12/19/2023 Reviewed by: Alisia Parada, CHAD - Fully Assessed Prescriptions as of 01/10/2024 - metoprolol succinate ER (TOPROL XL) 50 mg 24 hr tablet Take 1 tablet by mouth once daily. - ammonium lactate (LAC-HYDRIN) 12 % cream Apply to affected area as needed. Apply on thick skin - apixaban (ELIQUIS) 5 mg tab(s) Take 1 tablet by mouth two times a day. - apixaban (ELIQUIS) 5 mg tab(s) Take 2 tablets (10 mg) by mouth twice daily for 6 days. Then take 1 tablet (5 mg) by mouth twice daily - lisinopril (ZESTRIL) 40 mg tablet Take 1 tablet by mouth once daily. - hydroCHLOROthiazide 25 mg tablet Take 1 tablet by mouth once daily. - gabapentin (NEURONTIN) 300 mg capsule Take 300 mg by mouth daily at bedtime. - atorvastatin (LIPITOR) 40 mg tablet Take 1 tablet by mouth once daily. - levothyroxine (SYNTHROID) 125 mcg tablet TAKE 1 TABLET BY MOUTH EVERY DAY ON AN EMPTY STOMACH FOR THYROID - amoxicillin (POLYMOX, AMOXIL) 500 mg capsule Take four capsules one hour before dental procedure. - CPAP AutoPAP [id number]. Mask per preference, tubing, filters, humidity. Lifetime Supplies. Dx: G47.33. Fax 30 day compliance report to [phone]. - CPAP Please provide mask fitting. Pt [...] one(1) tablet daily. Facility-Administered Medications as of 01/10/2024 - perflutren lipid microspheres 1.3 mL in NaCl (PF) 0.9% 10 mL injection (DEFINITY) - sodium chloride 0.9 % (flush) 10 mL (BD POSIFLUSH) [facility] CNTHERAPYon 01-08-2024 CNTHERAPY OT/PT/Speech Visit ( PTWS) -- FRAN PAREKH ([id number]) 1945 M Date Time Provider Department 01/08/24 9:30 AM TABBY GIBBS PTWS Date Time Provider Department Center 01/08/2024 9:30 AM [id number] GIBBS [facility] Reason for Visit: Physical Therapy [503] Primary Visit Diagnosis:Unsteady gait [R26.81] Allergies As of Date: 01/08/2024 Noted Allergy Reaction NORVASC (AMLODIPINE BESYLATE) 09/14/2016 7 - Swelling Comments: pedal edema VENOM-WASP 01/14/2005 7 - Swelling ZITHROMAX (AZITHROMYCIN) 01/14/2005 9 - Itching Date Reviewed: 12/19/2023 Reviewed by: Alisia Parada, RN - Fully Assessed Prescriptions as of 01/08/2024 - metoprolol succinate ER (TOPROL XL) 50 mg 24 hr tablet Take 1 tablet by mouth once daily. - ammonium lactate (LAC-HYDRIN) 12 % cream Apply to affected area as needed. Apply on thick skin - apixaban (ELIQUIS) 5 mg tab(s) Take 1 tablet by mouth two times a day. - apixaban (ELIQUIS) 5 mg tab(s) Take 2 tablets (10 mg) by mouth twice daily for 6 days. Then take 1 tablet (5 mg) by mouth twice daily - lisinopril (ZESTRIL) 40 mg tablet Take 1 tablet by mouth once daily. - hydroCHLOROthiazide 25 mg tablet Take 1 tablet by mouth once daily. - gabapentin (NEURONTIN) 300 mg capsule Take 300 mg by mouth daily at bedtime. - atorvastatin (LIPITOR) 40 mg tablet Take 1 tablet by mouth once daily. - levothyroxine (SYNTHROID) 125 mcg tablet TAKE 1 TABLET BY MOUTH EVERY DAY ON AN EMPTY STOMACH FOR THYROID - amoxicillin (POLYMOX, AMOXIL) 500 mg capsule Take four capsules one hour before dental procedure. - CPAP AutoPAP [id number]. Mask per preference, tubing, filters, humidity. Lifetime Supplies. Dx: G47.33. Fax 30 day compliance report to [phone]. - CPAP Please provide mask fitting. Pt [...] one(1) tablet daily. Facility-Administered Medications as of 01/08/2024 - perflutren lipid microspheres 1.3 mL in NaCl (PF) 0.9% 10 mL injection (DEFINITY) - sodium chloride 0.9 % (flush) 10 mL (BD POSIFLUSH) [facility] CNTHERAPYon 01-04-2024 CNTHERAPY OT/PT/Speech Visit ( PTWS) -- FRAN PAREKH ([id number]) 1945 M Date Time Provider Department 01/04/24 3:45 PM YOGESH FORMAN PTWS Date Time Provider Department Center 01/04/2024 3:45 PM [id number], BRENT PTWS [facility] Reason for Visit: Physical Therapy [503] Primary Visit Diagnosis:Unsteady gait [R26.81] Allergies As of Date: 01/04/2024 Noted Allergy Reaction NORVASC (AMLODIPINE BESYLATE) 09/14/2016 7 - Swelling Comments: pedal edema VENOM-WASP 01/14/2005 7 - Swelling ZITHROMAX (AZITHROMYCIN) 01/14/2005 9 - Itching Date Reviewed: 12/19/2023 Reviewed by: Alisia Parada, RN - Fully Assessed Prescriptions as of 01/04/2024 - ammonium lactate (LAC-HYDRIN) 12 % cream Apply to affected area as needed. Apply on thick skin - apixaban (ELIQUIS) 5 mg tab(s) Take 1 tablet by mouth two times a day. - apixaban (ELIQUIS) 5 mg tab(s) Take 2 tablets (10 mg) by mouth twice daily for 6 days. Then take 1 tablet (5 mg) by mouth twice daily - metoprolol succinate ER (TOPROL XL) 50 mg 24 hr tablet Take 1 tablet by mouth once daily. - lisinopril (ZESTRIL) 40 mg tablet Take 1 tablet by mouth once daily. - hydroCHLOROthiazide 25 mg tablet Take 1 tablet by mouth once daily. - gabapentin (NEURONTIN) 300 mg capsule Take 300 mg by mouth daily at bedtime. - atorvastatin (LIPITOR) 40 mg tablet Take 1 tablet by mouth once daily. - levothyroxine (SYNTHROID) 125 mcg tablet TAKE 1 TABLET BY MOUTH EVERY DAY ON AN EMPTY STOMACH FOR THYROID - amoxicillin (POLYMOX, AMOXIL) 500 mg capsule Take four capsules one hour before dental procedure. - CPAP AutoPAP [id number]. Mask per preference, tubing, filters, humidity. Lifetime Supplies. Dx: G47.33. Fax 30 day compliance report to [phone]. - CPAP Please provide mask fitting. Pt [...] one(1) tablet daily. Facility-Administered Medications as of 01/04/2024 - perflutren lipid microspheres 1.3 mL in NaCl (PF) 0.9% 10 mL injection (DEFINITY) - sodium chloride 0.9 % (flush) 10 mL (BD POSIFLUSH) [facility] CNOVon 12-19-2023 CNOV Office Visit (VASMST ) -- FRAN PAREKH ([id number]) 1945 M Date Time Provider Department 12/19/23 2:30 PM SIDRA GÓMEZ During your visit today, we recorded the following information about you: Pulse Blood pressure Weight 70/minute 145/82 129.7 kg Sidra Gómez MD 12/19/2023 4:30 PM Signed [facility] [place] [facility] Department of Cardiovascular Medicine SECTION OF VASCULAR MEDICINE OUTPATIENT VISIT DATE December 19, 2023 OUTPATIENT VISIT TYPE CONSULTATION Consult regarding: Hypercoagulable workup? History of saddle PE Consult requested by: Victor Manuel Savage My final recommendations will be communicated back to the requesting physician by way of the shared medical record or by letter. Primary care physician: Agnes Diaz MD History of present illness: 78-year-old male with history of hypertension, dyslipidemia, CAD, prediabetes, MARTIN on CPAP, CKD 3a, lung nodule, pancreatic cyst central obesity, unprovoked acute bilateral pulmonary embolism 10/22/2023 (submassive, mild-moderate RV dilation, systolic septal flattening, with RVSP 86 , intermediate risk) and acute right Art-Zjl-jzik DVT (10/23/2023) treated with medical management, and pulmonary hypertension. He was discharged on Eliquis, which currently takes. Patient follows with pulmonology (Victor Manuel Savage, ) for pulmonary hypertension.Last visit 11/09/2023; recommended VQ scan and repeat echocardiogram. Prior to the diagnosis patient reported no hospitalizations, surgeries, long travels, immobilization or trauma. Patient's reports patient had swelling in both legs during his travel to [place] in May 2023. He had no chest discomfort or SOB. Patient adds he has had swelling in the legs ever since hip surgery in 2019. He underwent venous incompetency study in 12/2020 and found reflux in both GSV. He was recommended to wear compression stockings. Referred to vascular medicine for consideration of hypercoagulable workup History of thrombosis: as above, otherwise, History of CVA/TIA/CO: no Current or prior use of hormonal medications (testosterone supplementation): denies History of known hypercoagulable state: denies History of malignancy: SCC of nose s/p resection (follows with dermatology once a year) Health maintenance: colonoscopy 2010 (recommended 10 yr follow up; not yet done) PSA - not History of being treated with anticoagulants: no Family history of thrombosis in the first degree relatives: no No swelling, pain, redness, increased warmth or other sign of DVT. No chest pain, SOB, palpitations, lightheadedness or other signs of PE. No bleeding including epistaxis, hemoptysis, hematemesis, hematuria, hematochezia, melena, excessive bruising Allergies: is allergic to norvasc [amlodipine besylate], venom-wasp, and zithromax [azithromycin]. Medications: apixaban (ELIQUIS) 5 mg tab(s)Take 1 tablet by mouth two times a day.Disp: 60 tabletRfl: 2 apixaban (ELIQUIS) 5 mg tab(s)Take 2 tablets (10 mg) by mouth twice daily for 6 days. Then take 1 tablet (5 mg) by mouth twice dailyDisp: 72 tabletRfl: 0 metoprolol succinate ER (TOPROL XL) 50 mg 24 hr tabletTake 1 tablet by mouth once daily.Disp: 30 tabletRfl: 2 lisinopril (ZESTRIL) 40 mg tabletTake 1 tablet by mouth once daily.Disp: 90 tabletRfl: 1 hydroCHLOROthiazide 25 mg tabletTake 1 tablet by mouth once daily.Disp: 90 tabletRfl: 1 gabapentin (NEURONTIN) 300 mg capsuleTake 300 mg by mouth daily at bedtime.Disp: Rfl: atorvastatin (LIPITOR) 40 mg tabletTake 1 tablet by mouth once daily.Disp: 90 tabletRfl: 3 levothyroxine (SYNTHROID) 125 mcg tabletTAKE 1 TABLET BY MOUTH EVERY DAY ON AN EMPTY STOMACH FOR THYROIDDisp: 90 tabletRfl: 3 amoxicillin (POLYMOX, AMOXIL) 500 mg capsuleTake four capsules one hour before dental procedure.Disp: 4 capsuleRfl: 3 CPAPAutoPAP [id number]. Mask per preference, tubing, filters, humidity. Lifetime Supplies. Dx: G47.33. Fax 30 day compliance report to [phone].Disp: 1 EachRfl: 999 CPAPPlease provide mask fitting. Pt with subjective and some degree objective leaks. Prefers nasal type mask. Thank you. DME = FreshAireDisp: 1 EachRfl: 99 acetaminophen 650 mg CR tabletTake 650 mg by mouth as needed.Disp: Rfl: aspirin, enteric coated (ASPIRIN, ENTERIC COATED) 81 mg EC tabletTake 81 mg by mouth once daily.Disp: Rfl: MULTIVITAMIN,TX-MINERALS ORAL TABTake one(1) tablet daily.Disp: 60Rfl: 0 Past medical history: has a past medical history of Angina at rest (HCC) (09/14/2016), Arthritis of hip (06/08/2018), ASHD (arteriosclerotic heart disease) (09/14/2016), Bilateral carpal tunnel syndrome, Bilateral lower extremity edema, BPH (benign prostatic hyperplasia), Class 2 obesity due to excess calories with body mass index (BMI) of 38.0 to 38.9 in adult, Diverticul (more content not included)... [facility] [id number] 12-18-2023 [id number] HNO ID: [id number] Author: YOGESH FORMAN PT Service: ? Author Type: Physical Therapist Type: [id number] Filed: 12/18/2023 23:52 Note Text: [facility] Physical Therapy Plan of Care Certification Patient Name: Fran Parekh : 1945 [facility] #: [id number] Date: 12/18/2023 To: Agnes Diaz,* From Therapist: Yogesh Forman PT RE: Patient Certification/ Recertification Your review, approval and electronic signature are required in order to comply with Payor: MEDICARE / Plan: MEDICARE A AND B / Product Type: Medicare / regulations. The identified Physical Therapy PLAN OF CARE for the patient is as follows: R26.81 Unsteady gait (primary encounter diagnosis) R26.81 Unsteady gait when walking PLAN OF CARE: Assessment: Fran Parekh presents with diagnosis of unsteady gait that interferes with standing, walking. He presents with impairments in ADL's, balance, gait, independence in exercise, overall function, and strength. PROMIS? (Patient-Reported Outcomes Measurement Information System) scores were reviewed and identified as a rehabilitation concern. Prognosis for therapy is Good due to: current objective clinical presentation, acuteness of condition, positive past response to therapy, good support system/ coping skills, within-session changes. He will benefit from skilled therapy services to meet the goals established for this plan of care as noted below. Assessment Fall Risk : Active at risk Goals for Episode of Care: created on 12/18/23 through 02/12/24 Patient will report no falls. Improve performance on 4 Stage Balance Test to 10 second tandem and 14 second SLS to reflect decreased fall risk. [place] in home exercise program including cardiovascular exercise. Patient will demonstrate independent and proper use of assisstive device to allow for improved walking quality and safety therefore reducing the risk of falls. Perform standing, walking and all ADLs with decreased report of symptoms / pain. Patient Goals: reconditioning to regain prior functional level. Planned Interventions, Frequency, and Duration: Current Frequency: 2x/week Duration: 8 weeks Total Number of Visits Planned: 16 Planned Treatment Interventions: Therapeutic exercise (52490), Neuromuscular re-education (44103), Therapeutic activities (31198), Self-long-term management (84081), Gait Training (02102), Patient/Family/Caregiver Education, Body Mechanics Training, Functional training, General Conditioning PLAN FOR NEXT VISIT: Review, correct and progress HEP to tolerance. Begin balanace and gait training. Patient demonstrates good understanding of plan of care and treatment. The above goals and plan of care were discussed and agreed upon by patient/family. For further details regarding this patient refer to the Physical Therapy electronically documented visit dated 12/18/2023. Provider Attestation I have reviewed the treatment plan for Fran Parekh, [facility]# [id number] for the period of 12/18/23 -- 02/12/24, established on 12/18/2023. Signature certifies the need for therapy services. [facility] CNTHERAPYon 12-18-2023 CNTHERAPY OT/PT/Speech Visit ( PTWS) -- FRAN PAREKH ([id number]) 1945 M Date Time Provider Department 12/18/23 8:30 AM YOGESH FORMAN PTAIDA Date Time Provider Department Center 12/18/2023 8:30 AM [id number], BRENT PTAIDA [facility] Reason for Visit: PT Eval [747] Primary Visit Diagnosis:Unsteady gait [R26.81] Other Visit Diagnosis:Unsteady gait when walking [R26.81] Allergies As of Date: 12/18/2023 Noted Allergy Reaction NORVASC (AMLODIPINE BESYLATE) 09/14/2016 7 - Swelling Comments: pedal edema VENOM-WASP 01/14/2005 7 - Swelling ZITHROMAX (AZITHROMYCIN) 01/14/2005 9 - Itching Date Reviewed: 11/09/2023 Reviewed by: Piedad Ryan MA - Fully Assessed Prescriptions as of 12/18/2023 - apixaban (ELIQUIS) 5 mg tab(s) Take 1 tablet by mouth two times a day. - apixaban (ELIQUIS) 5 mg tab(s) Take 2 tablets (10 mg) by mouth twice daily for 6 days. Then take 1 tablet (5 mg) by mouth twice daily - metoprolol succinate ER (TOPROL XL) 50 mg 24 hr tablet Take 1 tablet by mouth once daily. - lisinopril (ZESTRIL) 40 mg tablet Take 1 tablet by mouth once daily. - hydroCHLOROthiazide 25 mg tablet Take 1 tablet by mouth once daily. - gabapentin (NEURONTIN) 300 mg capsule Take 300 mg by mouth daily at bedtime. - atorvastatin (LIPITOR) 40 mg tablet Take 1 tablet by mouth once daily. - levothyroxine (SYNTHROID) 125 mcg tablet TAKE 1 TABLET BY MOUTH EVERY DAY ON AN EMPTY STOMACH FOR THYROID - amoxicillin (POLYMOX, AMOXIL) 500 mg capsule Take four capsules one hour before dental procedure. - CPAP AutoPAP [id number]. Mask per preference, tubing, filters, humidity. Lifetime Supplies. Dx: G47.33. Fax 30 day compliance report to [phone]. - CPAP Please provide mask fitting. Pt [...] one(1) tablet daily. Facility-Administered Medications as of 12/18/2023 - perflutren lipid microspheres 1.3 mL in NaCl (PF) 0.9% 10 mL injection (DEFINITY) - sodium chloride 0.9 % (flush) 10 mL (BD POSIFLUSH) [facility] -- IGLESIAFRAN ([id number]) 1945 M Date Time Provider Department 11/27/23 SIDRA GÓMEZ During your visit today, we recorded the following information about you: Anitra Fong 11/27/2023 10:01 AM Signed Patient called and stated that his line builder wants him to be seen CASSY and asked if Dr. Pepe can see him sooner than March. Please advise Halie Perez LPN 11/27/2023 10:16 AM Addendum Message forwarded to the [facility] clerical pool for assistance with scheduling. Halie Perez LPN 11/27/2023 11:11 AM Signed Patient appt was moved to a sooner date. Allergies As of Date: 11/27/2023 Noted Allergy Reaction NORVASC (AMLODIPINE BESYLATE) 09/14/2016 7 - Swelling Comments: pedal edema VENOM-WASP 01/14/2005 7 - Swelling ZITHROMAX (AZITHROMYCIN) 01/14/2005 9 - Itching Date Reviewed: 11/09/2023 Reviewed by: Piedad Ryan MA - Fully Assessed Reason for Visit: Appointment [186] Prescriptions as of 11/27/2023 - apixaban (ELIQUIS) 5 mg tab(s) Take 1 tablet by mouth two times a day. - apixaban (ELIQUIS) 5 mg tab(s) Take 2 tablets (10 mg) by mouth twice daily for 6 days. Then take 1 tablet (5 mg) by mouth twice daily - metoprolol succinate ER (TOPROL XL) 50 mg 24 hr tablet Take 1 tablet by mouth once daily. - lisinopril (ZESTRIL) 40 mg tablet Take 1 tablet by mouth once daily. - hydroCHLOROthiazide 25 mg tablet Take 1 tablet by mouth once daily. - gabapentin (NEURONTIN) 300 mg capsule Take 300 mg by mouth daily at bedtime. - atorvastatin (LIPITOR) 40 mg tablet Take 1 tablet by mouth once daily. - levothyroxine (SYNTHROID) 125 mcg tablet TAKE 1 TABLET BY MOUTH EVERY DAY ON AN EMPTY STOMACH FOR THYROID - amoxicillin (POLYMOX, AMOXIL) 500 mg capsule Take four capsules one hour before dental procedure. - CPAP AutoPAP [id number]. Mask per preference, tubing, filters, humidity. Lifetime Supplies. Dx: G47.33. Fax 30 day compliance report to [phone]. - CPAP Please provide mask fitting. Pt [...] one(1) tablet daily. Facility-Administered Medications as of 11/27/2023 - perflutren lipid microspheres 1.3 mL in NaCl (PF) 0.9% 10 mL injection (DEFINITY) - sodium chloride 0.9 % (flush) 10 mL (BD POSIFLUSH) Problem List As Of Date 11/27/2023 Noted Resolved Primary hypertension [I10] 03/11/2005 Hypertrophy of prostate with urinary obstructio*06/01/2006 BLADDER NECK OBSTRUCTION [N32.0] 06/01/2006 Plantar fascial fibromatosis [M72.2] 11/02/2006 05/09/2014 Ingrowing nail [L60.0] 11/26/2007 05/09/2014 Hypothyroidism [E03.9] 03/25/2009 Open fracture of distal phalangeal tuft [[id number]*08/31/2011 05/09/2014 Internal derangement of right knee [M23.91] [...] ASHD (arteriosclerotic heart disease) [I25.10] 09/14/2016 Hyperlipidemia [E78.5] 09/14/2016 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] 06/08/2018 [...] edema [R60.0] 04/29/2020 Venous insufficiency (chronic) (peripheral) [I8*04/29/2020 Cervical radiculopathy [M54.12] 02/08/2021 Chronic low back pain with bilateral sciatica [*12/08/2021 Personal history of fall [Z91.81] 12/08/2021 Age-related physical debility [R54] 12/08/2021 Obesity, Class III, BMI 40-49.9 (morbid obesity*11/02/2022 Chronic bilateral low back pain with bilateral *11/29/2022 Stage 3b chronic kidney disease (HCC) [N18.32] 05/15/2023 Acute saddle pulmonary embolism without acute c*10/23/2023 Acute deep vein thrombosis (DVT) of femoral vei*10/23/2023 Acute hypoxemic respiratory failure (HCC) [J96.*10/23/2023 10/27/2023 RVF (right ventricular failure) (HCC) [I50.810] 10/24/2023 Pulmon (more content not included)... Normal [facility] NM LUNG VENT / PERF VQon NM LUNG VENT / PERF VQ * * *Final Report * * * DATE OF EXAM: Nov 22 2023 2:12PM FVN 0032 - NM LUNG VENT / PERF VQ / PROCEDURE REASON: Other secondary pulmonary hypertension (HCC) * * * * Physician Interpretation * * * * EXAM: PULMONARY VENTILATION/PERFUSION SCAN HISTORY: Other secondary pulmonary hypertension (HCC) . CT chest 10/22/2023 showed submassive pulmonary embolus on medical treatment TECHNIQUE: 0.8 mCi Tc 99m DTPA aerosol was inhaled. 5.8 mCi Tc 99m MAA administered IV. Planar pulmonary ventilation and perfusion images obtained in anterior, posterior, lateral, and oblique projections. COMPARISON: No prior V/Q scan available CORRELATION: CT chest of 10/22/2023 RESULTS: Exam Interpretation criteria: Modified PIOPED II Ventilation images: Mildly heterogeneous tracer activity bilaterally. Perfusion images: Bilateral few mismatched defects. Few matched defects. IMPRESSION: Bilateral few mismatched defects corresponding to prior known pulmonary embolism. Voltage Regulator Assembler: WILNER Transcribe Date/Time: Nov 22 2023 2:12P Dictated by : SHELBY KELLER MD This examination was interpreted and the report reviewed and electronically signed by: SHELBY KELLER MD on Nov 22 2023 2:18PM EST [id number] [facility] NM Lung Ventilation and Perf usionon 11-22-2023 IMPRESSION: Bilateral few mismatched defects corresponding to prior known pulmonary embolism. Voltage Regulator Assembler: [facility] Transcribe Date/Time: Nov 22 2023 2:12P Dictated by : SHELBY KELLER MD This examination was interpreted and the report reviewed and electronically signed by: SHELBY KELLER MD on Nov 22 2023 2:18PM EST [facility] * * *Final Report* * * DATE OF EXAM: Nov 22 2023 2:12PM FVN 0032 - NM LUNG VENT / PERF VQ / PROCEDURE REASON: Other secondary pulmonary hypertension (HCC) * * * * Physician Interpretation * * * * EXAM: PULMONARY VENTILATION/PERFUSION SCAN HISTORY: Other secondary pulmonary hypertension (HCC) . CT chest 10/22/2023 showed submassive pulmonary embolus on medical treatment TECHNIQUE: 0.8 mCi Tc 99m DTPA aerosol was inhaled. 5.8 mCi Tc 99m MAA administered IV. Planar pulmonary ventilation and perfusion images obtained in anterior, posterior, lateral, and oblique projections. COMPARISON: No prior V/Q scan available CORRELATION: CT chest of 10/22/2023 RESULTS: Exam Interpretation criteria: Modified PIOPED II Ventilation images: Mildly heterogeneous tracer activity bilaterally. Perfusion images: Bilateral few mismatched defects. Few matched defects. [facility] Provider, Priscilla Rodgers - 11/22/2023 * * *Final Report* * * DATE OF EXAM: Nov 22 2023 2:12PM N 0032 - NM LUNG VENT / PERF VQ / PROCEDURE REASON: Other secondary pulmonary hypertension (HCC) * * * * Physician Interpretation * * * * EXAM: PULMONARY VENTILATION/PERFUSION SCAN HISTORY: Other secondary pulmonary hypertension (HCC) . CT chest 10/22/2023 showed submassive pulmonary embolus on medical treatment TECHNIQUE: 0.8 mCi Tc 99m DTPA aerosol was inhaled. 5.8 mCi Tc 99m MAA administered IV. Planar pulmonary ventilation and perfusion images obtained in anterior, posterior, lateral, and oblique projections. COMPARISON: No prior V/Q scan available CORRELATION: CT chest of 10/22/2023 RESULTS: Exam Interpretation criteria: Modified PIOPED II Ventilation images: Mildly heterogeneous tracer activity bilaterally. Perfusion images: Bilateral few mismatched defects. Few matched defects. IMPRESSION IMPRESSION: Bilateral few mismatched defects corresponding to prior known pulmonary embolism. Voltage Regulator Assembler: [facility] Transcribe Date/Time: Nov 22 2023 2:12P Dictated by : SHELBY KELLER MD This examination was interpreted and the report reviewed and electronically signed by: SHELBY KELLER MD on Nov 22 2023 2:18PM EST [facility] Radiology Study observation (narrative) [facility] NM Lung Ventilation and Perf usionOrdered By: [facility] Provider on 11-22-2023 [facility] CNOVon 11-09-2023 CNOV Office Visit ([facility] ) -- FRAN PAREKH ([id number]) 1945 M Date Time Provider Department 11/09/23 11:00 AM VICTOR MANUEL SAVAGE During your visit today, we recorded the following information about you: Pulse Blood pressure Weight Height 55/minute 141/84 128.8 kg 1.829 m Victor Manuel Savage DO 11/09/2023 2:23 PM Signed Consultation requested by: Marquita Harp MD , my recommendation will be communicated back to the referring provided via shared electronic medical record, fax or US mail. Reason for Consultation: Pulmonary HTN, Acute saddle PE. History of Present Illness Fran Parekh is a 78 year old male with a history of MARTIN on CPAP, HTN, CAD, prediabetes, VZV, hypothyroidism, CKDIIIa, pancreatic cyst, lung nodules (lost to follow up) presenting for follow up on pulmonary HTN 2/2 likely acute PE. Had recent hospitalization for unprovoked subacute right lower extremity DVT/saddle PE. Leading up to hospitalization, he felt shortness of breath with exertion for the prior week or so. [place] acute shortness of breath and severe lightheadedness the day of admission so called EMS. Was prevous Past Medical History PAST MEDICAL HISTORY Diagnosis Date Angina at [...] of skin of nose Dr. Chowdary in [place] Stage 3a chronic kidney disease (HCC) Venous insufficiency HTN DM Type 2 Pulmonary Embolism/DVT Lung Nodules Social History Leads sedentary lifestyle getting up from chair to go to the restroom, eat, etc. Swam recreationally until about a year ago. He denies surgery in the last 3 months, trauma, immobilization, travel, family history of clotting disorder. Does fly to [place] about 3 times/year, last trip around [place]. Never smoked, IV, drugs, or alcohol. Family Hx: family history includes Headache in his father and sister; Heart in his mother; Myocardial infarction (age of onset: 64) in his maternal grandfather; Myocardial infarction (age of onset: 74) in his maternal uncle; Myocardial infarction (age of onset: 81) in his mother; No Known Problems in his sister and sister; lung cancer in his father. 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 Sometime investigated asbestos but never had to remove or work with it. REVIEW OF SYSTEMS: November 09, 2023 11:09 AM Constitutional: (-) Fever (-) Chills (-) Drenching night Sweats (-) New headaches (-) Long bone pain (-) Unexplained Weight Loss (-) Fatigue Respiratory: (-) Breathless in recumbent position relieved by sitting or standing (-)Hemoptysis (-) Shortness of Breath (-) Cough (-) Wheezing (+) Pets (cats and dog) (-) mold/mildew (-) Water damage (-) Down pillow/Comforter (-) Sauna/ Hot steam showers (-) Snoring Cardiovascular: (-) elevate head of the bed with (-) Night time awakening with gasping for air (+) Swelling of Ankles Rheumatological: (+) Rashes (Shingles) (-) Dry eyes (-) Dry mouth (-) Finger tips change color with cold weather (Raynaud's) Review of system completed by Avril Pham DO. Reviewed by Dr. Savage. PHYSICAL EXAM VITAL SIGNS: BP 141/84 Pulse (!) 55 Ht 182.9 cm (6') Wt 128.8 kg (284 lb) SpO2 96% BMI 38.52 kg/m? GENERAL: alert and active in no apparent distress LUNGS: Good inspiratory effort. Breathing is unlabored on room air. CARDIOVASCULAR : RRR, radial pulses are 2+ bilaterally, Pedal Edema: ++ Previous diagnostic tests include Chest CT: CT PE during hospitalization demonstrated subacute saddle PE, a 9.4mm lobular nodule in RML favored to be scarring. Along with probable scarring of lung bases. Echocardiogram: Consistent with severe pulmonary HTN at time of hospitalization DVT US lower extermities: Showed proximal and distal RLE DVT. Impression: (I27.29) Other secondary pulmonary hypertension (HCC) (primary encounter diagnosis) (Z86.711) History of pulmonary embolism Hx of acute PE with findings of RLE DVT as well. Cardiac imaging significant for severe pulm HTN and saddle PE. As patient is saturating well on jen (more content not included)... [facility] -- FRAN PAREKH ([id number]) 1945 M Date Time Provider Department 11/06/23 AGNES DIAZ During your visit today, we recorded the following information about you: Sissy Campbell LPN 11/06/2023 9:25 AM Signed Type of form: FMLA Form received via walk in When form is completed, Patient's to call with fax number. Mail original back to patient after faxed and send copy to med records. Patient advised that typically 5-7 days to complete paperwork. Form has been forwarded to Physician Desk: JOSE Hernandez Christopher B, MD 11/06/2023 9:50 AM Signed Will review and call when completed. Agustín Monroy RN 11/06/2023 10:38 AM Signed Patient calls with fax number to [facility]. Fax number is [phone]. CHAD English Beth, LPN 11/10/2023 8:15 AM Signed Patient calling said needs done CASSY please or his will have to go to [place] to work. . Agnes Diaz MD 11/10/2023 8:37 AM Signed Completed and placed in outbox. Sissy Campbell LPN 11/10/2023 9:52 AM Signed Phoned patient and advised paperwork faxed. Originals mailed to patient and copies forwarded to med records. Sissy Campbell LPN Allergies As of Date: 11/06/2023 Noted Allergy Reaction NORVASC (AMLODIPINE BESYLATE) 09/14/2016 7 - Swelling Comments: pedal edema VENOM-WASP 01/14/2005 7 - Swelling ZITHROMAX (AZITHROMYCIN) 01/14/2005 9 - Itching Date Reviewed: 10/30/2023 Reviewed by: Carmela Trevizo OCCA - Fully Assessed Reason for Visit: Forms [913] Cmt: [place] paperwork for patient's spouse Prescriptions as of 11/10/2023 - apixaban (ELIQUIS) 5 mg tab(s) Take 2 tablets (10 mg) by mouth twice daily for 6 days. Then take 1 tablet (5 mg) by mouth twice daily - metoprolol succinate ER (TOPROL XL) 50 mg 24 hr tablet Take 1 tablet by mouth once daily. - lisinopril (ZESTRIL) 40 mg tablet Take 1 tablet by mouth once daily. - hydroCHLOROthiazide 25 mg tablet Take 1 tablet by mouth once daily. - gabapentin (NEURONTIN) 300 mg capsule Take 300 mg by mouth daily at bedtime. - atorvastatin (LIPITOR) 40 mg tablet Take 1 tablet by mouth once daily. - levothyroxine (SYNTHROID) 125 mcg tablet TAKE 1 TABLET BY MOUTH EVERY DAY ON AN EMPTY STOMACH FOR THYROID - amoxicillin (POLYMOX, AMOXIL) 500 mg capsule Take four capsules one hour before dental procedure. - CPAP AutoPAP [id number]. Mask per preference, tubing, filters, humidity. Lifetime Supplies. Dx: G47.33. Fax 30 day compliance report to [phone]. - CPAP Please provide mask fitting. Pt [...] one(1) tablet daily. Facility-Administered Medications as of 11/10/2023 - perflutren lipid microspheres 1.3 mL in NaCl (PF) 0.9% 10 mL injection (DEFINITY) - sodium chloride 0.9 % (flush) 10 mL (BD POSIFLUSH) Problem List As Of Date 11/06/2023 Noted Resolved Primary hypertension [I10] 03/11/2005 Hypertrophy of prostate with urinary obstructio*06/01/2006 BLADDER NECK OBSTRUCTION [N32.0] 06/01/2006 Plantar fascial fibromatosis [M72.2] 11/02/2006 05/09/2014 Ingrowing nail [L60.0] 11/26/2007 05/09/2014 Hypothyroidism [E03.9] 03/25/2009 Open fracture of distal phalangeal tuft [[id number]*08/31/2011 05/09/2014 Internal derangement of right knee [M23.91] [...] ASHD (arteriosclerotic heart disease) [I25.10] 09/14/2016 Hyperlipidemia [E78.5] 09/14/2016 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] 06/08/2018 [...] edema [R60.0] 04/29/2020 Venous insufficiency (chronic) (peripheral) [I8*04/29/2020 Cervical radiculopathy [M54.12] 02/08/2021 (more content not included)... Normal [facility] CNPNon 11-01-2023 CNPN Telephone ([facility]AMWS) -- FRAN PAREKH ([id number]) 1945 M Date Time Provider Department 11/01/23 AGNES DIAZ During your visit today, we recorded the following information about you: Carli Bowen RN 11/01/2023 12:51 PM Signed Polina BONILLAadoption coordinator calls and reports that she went out to see patient today. Patient does not need home health services of nursing and PT. Patient is not home bound and is planning to go back to work. Polina asking if provider can write order for outpatient physical therapy? Please review and advise, CHAD Fregoso Christopher B, MD 11/01/2023 12:57 PM Signed Referral order to PT for unsteady gait placed as requested. Malachi Castillo, CHAD 11/01/2023 2:34 PM Signed Notified Polina of PT order. Allergies As of Date: 11/01/2023 Noted Allergy Reaction NORVASC (AMLODIPINE BESYLATE) 09/14/2016 7 - Swelling Comments: pedal edema VENOM-WASP 01/14/2005 7 - Swelling ZITHROMAX (AZITHROMYCIN) 01/14/2005 9 - Itching Date Reviewed: 10/30/2023 Reviewed by: Carmela Trevizo OCCA - Fully Assessed Reason for Visit: Patient Update [1234] Primary Visit Diagnosis:Acute saddle pulmonary embolism, unspecified whether acute cor pulmonale present (HCC) [I26.92] Other Visit Diagnosis:Unsteady gait when walking [R26.81] Order(s):CONSULT TO PHYSICAL THERAPY [8211] Order #: [id number]: 1 FUTURE Prescriptions as of 11/01/2023 - apixaban (ELIQUIS) 5 mg tab(s) Take 2 tablets (10 mg) by mouth twice daily for 6 days. Then take 1 tablet (5 mg) by mouth twice daily - metoprolol succinate ER (TOPROL XL) 50 mg 24 hr tablet Take 1 tablet by mouth once daily. - lisinopril (ZESTRIL) 40 mg tablet Take 1 tablet by mouth once daily. - hydroCHLOROthiazide 25 mg tablet Take 1 tablet by mouth once daily. - gabapentin (NEURONTIN) 300 mg capsule Take 300 mg by mouth daily at bedtime. - atorvastatin (LIPITOR) 40 mg tablet Take 1 tablet by mouth once daily. - levothyroxine (SYNTHROID) 125 mcg tablet TAKE 1 TABLET BY MOUTH EVERY DAY ON AN EMPTY STOMACH FOR THYROID - amoxicillin (POLYMOX, AMOXIL) 500 mg capsule Take four capsules one hour before dental procedure. - CPAP AutoPAP [id number]. Mask per preference, tubing, filters, humidity. Lifetime Supplies. Dx: G47.33. Fax 30 day compliance report to [phone]. - CPAP Please provide mask fitting. Pt [...] one(1) tablet daily. Facility-Administered Medications as of 11/01/2023 - perflutren lipid microspheres 1.3 mL in NaCl (PF) 0.9% 10 mL injection (DEFINITY) - sodium chloride 0.9 % (flush) 10 mL (BD POSIFLUSH) Problem List As Of Date 11/01/2023 Noted Resolved Primary hypertension [I10] 03/11/2005 Hypertrophy of prostate with urinary obstructio*06/01/2006 BLADDER NECK OBSTRUCTION [N32.0] 06/01/2006 Plantar fascial fibromatosis [M72.2] 11/02/2006 05/09/2014 Ingrowing nail [L60.0] 11/26/2007 05/09/2014 Hypothyroidism [E03.9] 03/25/2009 Open fracture of distal phalangeal tuft [[id number]*08/31/2011 05/09/2014 Internal derangement of right knee [M23.91] [...] ASHD (arteriosclerotic heart disease) [I25.10] 09/14/2016 Hyperlipidemia [E78.5] 09/14/2016 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] 06/08/2018 [...] edema [R60.0] 04/29/2020 Venous insufficiency (chronic) (peripheral) [I8*04/29/2020 Cervical radiculopathy [M54.12] 02/08/2021 Chronic low back pain with bilateral sciatica [*12/08/2021 Personal history of fall [Z91.81] 12/08/2021 Age-related physical debility [R54] 12/08/2021 Obesity, Class III, BMI 40-49.9 (morbid obesity*11/02/2022 Chronic bilateral low back pain w (more content not included)... Normal [facility] CNPNon 10-31-2023 [facility] FRAN [facility]AREKH ([id number]) 1945 M Date Time Provider Department 10/31/23 [facility] During your visit today, we recorded the following information about you: Leonila Winslow LPN 10/31/2023 8:15 AM Signed Divina with [facility] calling to see if you will follow and sign for home care orders for [facility] and PT. DX hypertension. Pt was d/c from [facility] on 10-27-23. Please advise Divina. JOSE Tay Christopher B, MD 10/31/2023 8:20 AM Signed Yes, will sign and follow. Carmela Trevizo OCCA 10/31/2023 8:36 AM Signed TC to Divina who is informed of below. ADAN Stewart Allergies As of Date: 10/31/2023 Noted Allergy Reaction NORVASC (AMLODIPINE BESYLATE) 09/14/2016 7 - Swelling Comments: pedal edema VENOM-WASP 01/14/2005 7 - Swelling ZITHROMAX (AZITHROMYCIN) 01/14/2005 9 - Itching Date Reviewed: 10/30/2023 Reviewed by: Carmela Trevizo OCCA - Fully Assessed Reason for Visit: [facility]- verbal orders [Other] Prescriptions as of 10/31/2023 - apixaban (ELIQUIS) 5 mg tab(s) Take 2 tablets (10 mg) by mouth twice daily for 6 days. Then take 1 tablet (5 mg) by mouth twice daily - metoprolol succinate ER (TOPROL XL) 50 mg 24 hr tablet Take 1 tablet by mouth once daily. - lisinopril (ZESTRIL) 40 mg tablet Take 1 tablet by mouth once daily. - hydroCHLOROthiazide 25 mg tablet Take 1 tablet by mouth once daily. - gabapentin (NEURONTIN) 300 mg capsule Take 300 mg by mouth daily at bedtime. - atorvastatin (LIPITOR) 40 mg tablet Take 1 tablet by mouth once daily. - levothyroxine (SYNTHROID) 125 mcg tablet TAKE 1 TABLET BY MOUTH EVERY DAY ON AN EMPTY STOMACH FOR THYROID - amoxicillin (POLYMOX, AMOXIL) 500 mg capsule Take four capsules one hour before dental procedure. - CPAP AutoPAP [id number]. Mask per preference, tubing, filters, humidity. Lifetime Supplies. Dx: G47.33. Fax 30 day compliance report to [phone]. - CPAP Please provide mask fitting. Pt [...] one(1) tablet daily. Facility-Administered Medications as of 10/31/2023 - perflutren lipid microspheres 1.3 mL in NaCl (PF) 0.9% 10 mL injection (DEFINITY) - sodium chloride 0.9 % (flush) 10 mL (BD POSIFLUSH) Problem List As Of Date 10/31/2023 Noted Resolved Primary hypertension [I10] 03/11/2005 Hypertrophy of prostate with urinary obstructio*06/01/2006 BLADDER NECK OBSTRUCTION [N32.0] 06/01/2006 Plantar fascial fibromatosis [M72.2] 11/02/2006 05/09/2014 Ingrowing nail [L60.0] 11/26/2007 05/09/2014 Hypothyroidism [E03.9] 03/25/2009 Open fracture of distal phalangeal tuft [[id number]*08/31/2011 05/09/2014 Internal derangement of right knee [M23.91] [...] ASHD (arteriosclerotic heart disease) [I25.10] 09/14/2016 Hyperlipidemia [E78.5] 09/14/2016 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] 06/08/2018 [...] edema [R60.0] 04/29/2020 Venous insufficiency (chronic) (peripheral) [I8*04/29/2020 Cervical radiculopathy [M54.12] 02/08/2021 Chronic low back pain with bilateral sciatica [*12/08/2021 Personal history of fall [Z91.81] 12/08/2021 Age-related physical debility [R54] 12/08/2021 Obesity, Class III, BMI 40-49.9 (morbid obesity*11/02/2022 Chronic bilateral low back pain with bilateral *11/29/2022 Stage 3b chronic kidney disease (HCC) [N18.32] 05/15/2023 Acute saddle pulmonary embolism without acute c*10/23/2023 Acute deep vein thrombosis (DVT) of femoral vei*10/23/2023 Acute hypoxemic respiratory failure (HCC) [J96.*10/23/2023 10/27/2023 RVF (right ventricular failu (more content not included)... Normal [facility] CNOVon 10-30-2023 CNOV Office Visit ([facility]WS ) -- IGLESIAFRAN R ([id number]) 1945 M Date Time Provider Department 10/30/23 1:20 PM [facility] During your visit today, we recorded the following information about you: Pulse Respiration Blood pressure Weight 72/minute 20/minute 138/86 128.8 kg Agnes Diaz MD 10/30/2023 2:50 PM Signed Chief Complaint Patient presents with: Hospital F/U: Seen for PE and respiratory failure, d/c Thursday 10/26, patient states respiratory status has improved HPI Fran R Iglesia is a 78 year old male who presents here today for Above Complaints. Patient's hospital discharge summary was not completed at the time of this appointment. Patient admitted to [facility] from 10/22 to 10/26 for initial complaint of SOB and dizziness and was found to have saddle PE and right LE DVT requiring hospitalization and ICU admission. Initially treated with heparin gtt and coumadin and was then transitioned to Eliquis prior to discharge. Recommended he f/u with our office today as scheduled and was referred to pulmonology which was scheduled for 11/08. No obvious etiology for his PE and DVT identified in the hospital. Today, he states that he has been taking Eliquis as prescribed without bleeding or bruising. Denies chest pain, SOB, palpitations, new leg swelling, fever/chills. DVT and PE appear to be unprovoked. He denies surgery in the last 3 months, trauma, immobilization, travel, family history of clotting disorder. COVID was negative in the hospital and he denies URI symptoms in the last couple of months. Patient requesting handicap placard due to SOB with walking more than 200 feet. Patient is tolerating PO diet. Able to perform ADLs. Was given order for home PT/OT who have not been out yet. Using cane for ambulation which he feels steady with. Denies falls. Using CPAP on a nightly basis. Past medical history, appointments, medications, allergies reviewed. Previous Medical History PAST MEDICAL HISTORY Diagnosis Date Angina at [...] of skin of nose Dr. Chowdary in [place] Stage 3a chronic kidney disease (HCC) Venous insufficiency Previous Surgical History PAST SURGICAL HISTORY Procedure Laterality Date ARTHRP ACETBLR/PROX FEM PROSTC AGRFT/ALGRFT Right 06/03/2019 Hip replacement, total COLONOSCOPY FLX DX W/COLLJ SPEC WHEN PFRMD 04/21/11 Repeat 10 [id number] LASER GREENLIGHT prostate, [place] NEUROPLASTY AND/TRANSPOS MEDIAN NRV CARPAL TUNNE Left 01/17/2020 Left carpal tunnel release NEUROPLASTY AND/TRANSPOS MEDIAN NRV CARPAL TUNNE Right 03/04/2020 Right carpal tunnel release RPR UMBILICAL HRNA 5 YRS/> REDUCIBLE TONSILLECTOMY PRIMARY/SECONDARY Tonsillectomy Family History FAMILY HISTORY Problem Relation Age of Onset Heart Mother other (Myocardial infarction) Mother 81 Headache Father MIGRAINES other (lung cancer) Father DECEACED AGE 86 YR LUNG CA No Known Problems Sister No Known Problems Sister Headache Sister MIGRAINES other (Myocardial infarction) Maternal Grandfather 64 other (Myocardial infarction) Maternal Uncle 74 Patient Allergies ALLERGIES Allergen Reactions Norvasc [Amlodipine* Swelling pedal edema Venom-Wasp Swelling Zithromax [Azithrom* Itching Current Medications Current Outpatient Medications on File Prior to Visit Medication Sig apixaban (ELIQUIS) 5 mg tab(s) Take 2 tablets (10 mg) by mouth twice daily for 6 days. Then take 1 tablet (5 mg) by mouth twice daily metoprolol succinate ER (TOPROL XL) 50 mg 24 hr tablet Take 1 tablet by mouth once daily. lisinopril (ZESTRIL) 40 mg tablet Take 1 tablet by mouth once daily. hydroCHLOROthiazide 25 mg tablet Take 1 tablet by mouth once daily. gabapentin (NEURONTIN) 300 mg capsule Take 300 mg by mouth daily at bedtime. atorvastatin (LIPITOR) 40 mg tablet Take 1 tablet by mouth once daily. levothyroxine (SYNTHROID) 125 mcg tablet TAKE 1 TABLET BY MOUTH EVERY DAY ON AN EMPTY STOMACH FOR THYROID amoxicillin (POLYMOX, AMOXIL) 500 mg capsule Take four capsules one hour before dental (more content not included)... Normal [facility] Basic metabolic 2000 panelon 10-27-2023 Anion gap [Moles/Vol] 13 mmol/L Normal 8-15 [facility] Comment on above: Order Comment: Speci men Type: BLOOD SPECIMEN Ordering Facility: [facility] Address: [address] [id number] Performed By: #### [facility], 96486-3 #### [facility] CLIA [id number] [address] [place] [address] [place] Calcium [Mass/Vol] 9.0 mg/dL Normal 8.5-10.2 [facility] Comment on above: Order Comment: Speci men Type: BLOOD SPECIMEN Ordering Facility: [facility] Address: [address] [place] [address] Performed By: #### P [facility], 84243-1 #### [facility] CLIA [id number] [place] [address] [place] Chloride [Moles/Vol] 107 mmol/L Normal 98-107 [facility] Comment on above: Order Comment: Speci men Type: BLOOD SPECIMEN Ordering Facility: [facility] Address: [address] [place] [address] Performed By: #### P [facility], 42465-3 #### [facility] CLIA [id number] [address] [place] [address] [place] CO2 [Moles/Vol] 20 mmol/L Low 22-30 [facility] Comment on above: Order Comment: Speci men Type: BLOOD SPECIMEN Ordering Facility: [facility] Address: [address] [place] [address] Performed By: #### P [facility], 92653-4 #### [facility] CLIA [id number] [address] [place] [address] [place] Creatinine [Mass/Vol] 1.32 mg/dL High 0.73-1.22 [facility] Comment on above: Order Comment: Speci men Type: BLOOD SPECIMEN Ordering Facility: [facility] Address: [address] [place] [address] Performed By: #### P [facility], 65761-4 #### [facility] CLIA [id number] [address] [place] [address] [place] Creatinine and Glomerular filtration rate.predicted panel (S/P/Bld) 55 mL/min/1.73m??? Low >=60 [facility] Comment on above: Order Comment: Speci men Type: BLOOD SPECIMEN Ordering Facility: [facility] Address: [address] [place] [address] Result Comment: Danika mated Glomerular Filtration Rate (eGFR) is calculated using the 2020 CKD-EPI creatinine equation. This equation utilizes serum creatinine, sex, and age as parameters. The creatinine assay has traceable calibration to isotope dilution-mass spectrometry. Refer to KDIGO guidelines for clinical interpretation. In patients with unstable renal function, e.g. those with acute kidney injury, the eGFR may not accurately reflect actual GFR. Performed By: #### P [facility], 43722-9 #### [facility] CLIA [id number] [address] [place] [address] [place] Glucose [Mass/Vol] 103 mg/dL High 74-99 [facility] Comment on above: Order Comment: Speci men Type: BLOOD SPECIMEN Ordering Facility: [facility] Address: [address] [place] [address] Result Comment: The [place] Diabetes Association (ADA) provides guidance for cutoff values for fasting glucose and random glucose. The ADA defines fasting as no caloric intake for at least 8 hours. Fasting plasma glucose results between 100 to 125 mg/dL indicate increased risk for diabetes (prediabetes). Fasting plasma glucose results greater than or equal to 126 mg/dL meet the criteria for diagnosis of diabetes. In the absence of unequivocal hyperglycemia, results should be confirmed by repeat testing. In a patient with classic symptoms of hyperglycemia or hyperglycemic crisis, random plasma glucose results greater than or equal to 200 mg/dL meet the criteria for diagnosis of diabetes. Reference: Standards of Medical Care in Diabetes 2016, [place] [employer]. Diabetes Care. 2016.39(Suppl 1). Performed By: #### P [facility], 08097-3 #### [facility] CLIA [id number] [place] [address] [place] Potassium [Moles/Vol] 4.4 mmol/L Normal 3.7-5.1 [facility] Comment on above: Order Comment: Tiffanie rollins Type: BLOOD SPECIMEN Ordering Facility: [facility] Address: [address] [place] [address] Performed By: #### P TT[facility], 07561-3 #### [facility] CLIA [id number] [address] [place] [address] [place] Sodium [Moles/Vol] 140 mmol/L Normal 136-144 [facility] Comment on above: Order Comment: Speci men Type: BLOOD SPECIMEN Ordering Facility: [facility] Address: [address] [id number] Performed By: #### P [facility], 86075-2 #### [facility] CLIA [id number] [address] [place] [id number] [place] [facility] Urea nitrogen [Mass/Vol] 25 mg/dL High 9-24 [facility] Comment on above: Order Comment: Speci ria Type: BLOOD SPECIMEN Ordering Facility: [facility] Address: [address] [place] [address] Performed By: #### P [facility], 44635-7 #### [facility] CLIA [id number] [address] [place] [id number] [facility] CNDSon 10-27-2023 CNDS HNO ID: [id number] Author: MARQUITA HARP MD Service: Hospital Medicine Author Type: Physician Type: Discharge Summary Filed: 11/02/2023 09:35 Note Text: DISCHARGE SUMMARY PATIENT NAME: Fran Parekh ADMISSION DATE: 10/23/2023 DISCHARGE DATE: October 30, 2023 ATTENDING PHYSICIAN: Marquita Harp MD Code Status: Prior PCP: Agnes Diaz MD Highest Readmission Risk Score: 11 The 30 day readmissions risk score is derived from an internally validated risk model which evaluates patient level characteristics, utilization history, medication orders and lab results up until the day of discharge. Patients with a score of 40 or above are considered highest risk for readmission. Specific patient level drivers will be listed at the bottom of the summary. TRANSITIONS OF CARE CRITICAL ISSUES: HERRERA MEDICATION CHANGES: Eliquis was added Follow-up appointments with the primary care physician and pulmonary are scheduled before discharge REASON FOR HOSPITALIZATION/PRINCIPAL DIAGNOSES: Shortness of Breath HOSPITAL PROBLEMS: Principal Problem: Acute saddle pulmonary embolism without acute cor pulmonale (HCC) (POA: Yes) Active Problems: Primary hypertension (POA: Yes) Hyperlipidemia (POA: Yes) Acute deep vein thrombosis (DVT) of femoral vein of right lower extremity (HCC) (POA: Unknown) RVF (right ventricular failure) (HCC) (POA: Unknown) Pulmonary HTN (HCC) (POA: Unknown) Resolved Problems: Acute hypoxemic respiratory failure (HCC) (POA: Unknown) Obesity Class II (BMI 35-39.9) HOSPITAL COURSE: This 78 years old male transferred from [facility] to our facility with acute hypoxic respiratory failure acute saddle PE right lower extremity DVT Seen by pulmonary initially admitted to the ICU images reviewed by PERT team recommended no intervention impression that this is subacute PE, plan is for 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, was started initially on heparin, family and patient decided they cannot afford Eliquis patient discharged on Eliquis per protocol, echocardiogram revealed severe pulmonary hypertension plan to follow-up with pulmonary hypertension clinic as outpatient on the day of discharge patient was seen and examined wants to go home labs vitals reviewed with the plan of care explained in detail to the patient and his family over the phone. Patient has history of chronic kidney disease kidney function remained stable during the hospitalization stay home medications were continued OPERATIONS/PROCEDURE DURING THIS HOSPITALIZATION: * No surgery found * CONSULTS DURING HOSPITALIZATION: Treatment Team: Attending Provider: Marquita Harp MD Primary Service: , [facility] PATIENT CONDITION AT DISCHARGE: Fair DISCHARGE DISPOSITION: Home with Home Health, Home with Relative Home with Home Health General patient awake alert oriented x3 no acute distress Skin no rash no ulcers Heart S1-S2 no murmurs rubs or gallops Lungs diminished in the bases no wheezing Abdomen positive bowel sounds soft nontender Extremity positive pedal pulses, no edema Neurological exam cranial nerves II through XII intact sensation preserved WOUND/SURGICAL SITE CARE: None SUPPLIES OR EQUIPMENT: None DIET: Resume pre-hospital diet ACTIVITY AND EXERCISE: Resume pre-hospital activity To avoid strenuous activity until cleared by pulmonary FOLLOW UP APPOINTMENTS: Future Appointments Date Time Provider Department Center 11/09/2023 11:00 AM Victor Manuel Savage DO [facility] Discharge Information Row Name Admission (Discharged) from 10/23/[address] [facility] Agency [facility] Start of Care -- they will call to set up appointment ALLERGIES Allergen Reactions Norvasc [Amlodipine* Swelling pedal edema Venom-Wasp Swelling Zithromax [Azithrom* Itching DISCHARGE MEDICATION: Medication List START taking these medications ELIQUIS 5 mg tab(s) Generic drug: apixaban Take 2 tablets (10 mg) by mouth twice daily for 6 days. Then take 1 tablet (5 mg) by mouth twice daily CONTINUE taking these medications acetaminophen 650 mg CR tablet amoxicillin 500 mg capsule Commonly known as: AMOXIL Take four capsules one hour before dental procedure. aspirin, enteric coated 81 mg EC tablet Commonly known as: ASPIRIN, ENTERIC COATED atorvastatin 40 mg tablet Commonly known as: LIPITOR Take 1 tablet by mouth once daily. CPAP Please provide mask fitting. Pt with subjective and some degree objective leaks. Prefers nasal type mask. Thank you. DME = [employer] CPAP AutoPAP [id number]. Mask per preference, tubing, filters, humidity. Lif[employer] Supplies. Dx: G47.33. Fax 30 day compliance report to [phone]. gabapentin 300 mg capsule Commonly known as: NEURONTIN hydroCHLOROthiazide 25 mg tablet Take 1 tablet by mouth once daily. levothyroxine 125 mcg tablet Commonly known as: SYNTHROID TAKE 1 TAB (more content not included)... Normal [facility] PT panel Coag (PPP)on 2023 INR Coag (PPP) [Relative time] 1.2 {INR} Normal 0.9-1.3 [facility] Comment on above: Order Comment: Speci men Type: BLOOD SPECIMEN Ordering Facility: [facility] Address: [address] [place] [address] Result Comment: Yvonne min K Antagonist (VKA) Therapeutic Range: INR 2 to 3 (Target INR of 2.5) Note: For patients treated with VKA drugs, such as warfarin, the [place] [employer] 2012 Guideline recommends a therapeutic INR range of 2 to 3 (target INR of 2.5). This recommendation includes high-risk patients with antiphospholipid syndrome with previous arterial or venous thromboembolism, current-generation mechanical or bioprosthetic aortic heart valve replacement. Note: Patients with mechanical aortic valve replacement and additional risk factors for thromboembolic events (atrial fibrillation, previous thromboembolism, LV dysfunction, hypercoagulable conditions) or an older generation mechanical AVR (i.e., ball in-Cage) or any mechanical MVR should have a INR therapeutic range of 2.5 to 3.5 (target INR of 3). Phuong BURGOS, et al. Chest 2012, 141:7S-47S Saray WISE et al. [facility] 2017, 70: 252-289 Performed By: #### [facility] #### [facility] CLIA [id number] [place] [address] [place] PT Coag (PPP) [Time] 12.8 s Normal 9.7-13.0 [facility] Comment on above: Order Comment: Speci men Type: BLOOD SPECIMEN Ordering Facility: [facility] Address: [address] [place] [address] Performed By: #### P TT[facility] #### [facility] CLIA [id number] [address] [place] [address] [place] Basic metabolic 2000 panelon 10-26-2023 Anion gap [Moles/Vol] 13 mmol/L Normal 8-15 [facility] Comment on above: Order Comment: Speci men Type: BLOOD SPECIMEN Ordering Facility: [facility] Address: [address] [place] [address] Performed By: #### P TTAC #### [facility] CLIA [id number] [address] [place] [address] [place] Calcium [Mass/Vol] 8.9 mg/dL Normal 8.5-10.2 [facility] Comment on above: Order Comment: Speci men Type: BLOOD SPECIMEN Ordering Facility: [facility] Address: [address] [place] [address] Performed By: #### P TT[facility] #### [facility] CLIA [id number] [address] [place] [address] [place] Chloride [Moles/Vol] 105 mmol/L Normal 98-107 [facility] Comment on above: Order Comment: Speci men Type: BLOOD SPECIMEN Ordering Facility: [facility] Address: [address] [place] [address] Performed By: #### P TT[facility] #### [facility] CLIA [id number] [address] [place] [address] [place] CO2 [Moles/Vol] 23 mmol/L Normal 22-30 [facility] Comment on above: Order Comment: Speci men Type: BLOOD SPECIMEN Ordering Facility: [facility] Address: [address] [place] [address] Performed By: #### P TT[facility] #### [facility] CLIA [id number] [place] [address] [place] Creatinine [Mass/Vol] 1.34 mg/dL High 0.73-1.22 [facility] Comment on above: Order Comment: Tiffanie rollins Type: BLOOD SPECIMEN Ordering Facility: [facility] Address: [address] [place] [address] Performed By: #### P TTAC #### [facility] CLIA [id number] [place] [address] [facility] [place] Creatinine and Glomerular filtration rate.predicted panel (S/P/Bld) 54 mL/min/1.73m??? Low >=60 [facility] Comment on above: Order Comment: Tiffanie rollins Type: BLOOD SPECIMEN Ordering Facility: [facility] Address: [address] [place] [address] Result Comment: Danika mated Glomerular Filtration Rate (eGFR) is calculated using the 2020 CKD-EPI creatinine equation. This equation utilizes serum creatinine, sex, and age as parameters. The creatinine assay has traceable calibration to isotope dilution-mass spectrometry. Refer to KDIGO guidelines for clinical interpretation. In patients with unstable renal function, e.g. those with acute kidney injury, the eGFR may not accurately reflect actual GFR. Performed By: #### P [facility] #### [facility] CLIA [id number] [address] [place] [address] [place] Glucose [Mass/Vol] 118 mg/dL High 74-99 [facility] Comment on above: Order Comment: Tiffanie rollins Type: BLOOD SPECIMEN Ordering Facility: [facility] Address: [address] [place] [address] Result Comment: The [place] Diabetes [employer] (ADA) provides guidance for cutoff values for fasting glucose and random glucose. The ADA defines fasting as no caloric intake for at least 8 hours. Fasting plasma glucose results between 100 to 125 mg/dL indicate increased risk for diabetes (prediabetes). Fasting plasma glucose results greater than or equal to 126 mg/dL meet the criteria for diagnosis of diabetes. In the absence of unequivocal hyperglycemia, results should be confirmed by repeat testing. In a patient with classic symptoms of hyperglycemia or hyperglycemic crisis, random plasma glucose results greater than or equal to 200 mg/dL meet the criteria for diagnosis of diabetes. Reference: Standards of Medical Care in Diabetes 2016, [place] [employer]. Diabetes Care. 2016.39(Suppl 1). Performed By: #### P TT[facility] #### [facility] CLIA [id number] [address] [place] [address] [place] Potassium [Moles/Vol] 4.3 mmol/L Normal 3.7-5.1 [facility] Comment on above: Order Comment: Speci men Type: BLOOD SPECIMEN Ordering Facility: [facility] Address: [address] [place] [address] Performed By: #### P TT[facility] #### [facility] CLIA [id number] [address] [place] [address] [place] Sodium [Moles/Vol] 141 mmol/L Normal 136-144 [facility] Comment on above: Order Comment: Ruthi ria Type: BLOOD SPECIMEN Ordering Facility: [facility] Address: [address] [place] [address] Performed By: #### P TT[facility] #### [facility] CLIA [id number] [address] [place] [address] [place] Urea nitrogen [Mass/Vol] 24 mg/dL Normal 9-24 [facility] Comment on above: Order Comment: Ruthi ria Type: BLOOD SPECIMEN Ordering Facility: [facility] Address: [address] [place] [address] Performed By: #### P TT[facility] #### [facility] CLIA [id number] [address] [place] [address] [place] CBC panel Auto (Bld)on 10-25 Erythrocyte distribution width (RBC) [Ratio] 14.6 % Normal 11.5-15.0 [facility] Comment on above: Order Comment: Ruthi men Type: BLOOD SPECIMENOrdering Facility: [facility] Address: [address] [place] [address] Performed By: #### 5 8410-2 ####[facility] [id number] [address] [place] Hematocrit (Bld) [Volume fraction] 41.8 % Normal 39.0-51.0 [facility] Comment on above: Order Comment: Speci men Type: BLOOD SPECIMENOrdering Facility: [facility] Address: [address] [place] [address] Performed By: #### 5 8410-2 ####[facility] [id number] [address] Hemoglobin (Bld) [Mass/Vol] 14.6 g/dL Normal 13.0-17.0 [facility] Comment on above: Order Comment: Speci men Type: BLOOD SPECIMENOrdering Facility: [facility] Address: [address] [place] [address] Performed By: #### 5 8410-2 ####[facility] [id number] [address] MCH (RBC) [Entitic mass] 33.1 pg Normal 26.0-34.0 [facility] Comment on above: Order Comment: Speci men Type: BLOOD SPECIMENOrdering Facility: [facility] Address: [address] [place] [address] Performed By: #### 5 8410-2 ####[facility] [id number] [address] MCHC (RBC) [Mass/Vol] 34.9 g/dL Normal 30.5-36.0 [facility] Comment on above: Order Comment: Speci men Type: BLOOD SPECIMENOrdering Facility: [facility] Address: [address] [place] [address] Performed By: #### 5 8410-2 ####[facility] [id number] [address] [place] [facility] MCV (RBC) [Entitic vol] 94.8 fL Normal 80.0-100.0 [facility] Comment on above: Order Comment: Speci men Type: BLOOD SPECIMENOrdering Facility: [facility] Address: [address] [place] [address] Performed By: #### 5 8410-2 ####[facility]ORY[facility]IA [id number] [place] [address] [place] Nucleated RBC (Bld) [#/Vol] 10*3/uL Normal <0.01 [facility] Comment on above: Order Comment: Speci men Type: BLOOD SPECIMENOrdering Facility: [facility] Address: [address] [place] [address] Performed By: #### 5 8410-2 ####[facility] [id number] [place] [id number] [place] Platelet mean volume (Bld) [Entitic vol] 9.7 fL Normal 9.0-12.7 [facility] Comment on above: Order Comment: Speci men Type: BLOOD SPECIMENOrdering Facility: [facility] Address: [address] [place] [address] Performed By: #### 5 8410-2 ####[facility] [id number] [place] [address] [place] Platelets (Bld) [#/Vol] 165 10*3/uL Normal 150-400 [facility] Comment on above: Order Comment: Speci men Type: BLOOD SPECIMENOrdering Facility: [facility] Address: [address] [place] [address] Performed By: #### 5 8410-2 ####[facility] [id number] [place] [address] [place] RBC (Bld) [#/Vol] 4.41 10*6/uL Normal 4.20-6.00 [facility] Comment on above: Order Comment: Speci men Type: BLOOD SPECIMENOrdering Facility: [facility] Address: [address] [place] [address] Performed By: #### 5 8410-2 ####[facility] [id number] [place] [id number] [place] WBC (Bld) [#/Vol] 10.66 10*3/uL Normal 3.70-11.00 [facility] Comment on above: Order Comment: Speci men Type: BLOOD SPECIMENOrdering Facility: [facility] Address: [address] [place] [address] Performed By: #### 5 8410-2 ####[facility] [id number] [address] Frederic 10-26-2023 CNPN Telephone (FAMWS) -- FRAN PAREKH ([id number]) 1945 M Date Time Provider Department 10/26/23 [facility] today, we recorded the following information about you: Agnes Diaz MD 10/26/2023 1:23 PM Signed I was called by the hospitalist at [facility] for this patient regarding new diagnosis of PE and DVT. He is on day 6 of 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 with coumadin and is still not therapeutic. They are wanting to starting him on lovenox and continue coumadin and have him f/u with our office on Monday for appointment and INR. Please call to schedule 40 minute OV with me. Sissy Campbell LPN 10/26/2023 1:35 PM Signed Phoned patient and discussed with him recommendations. Patient agreeable to 10/30/23 at 1:20pm. Allergies As of Date: 10/26/2023 Noted Allergy Reaction NORVASC (AMLODIPINE BESYLATE) 09/14/2016 7 - Swelling Comments: pedal edema VENOM-WASP 01/14/2005 7 - Swelling ZITHROMAX (AZITHROMYCIN) 01/14/2005 9 - Itching Date Reviewed: 10/26/2023 Reviewed by: Virgilio Bee, CHAD - Fully Assessed Reason for Visit: Patient Update [1234] Primary Visit Diagnosis:Acute saddle pulmonary embolism, unspecified whether acute cor pulmonale present (HCC) [I26.92] Order(s):PROTHROMBIN TIME [SQPT] Order #: [id number] FUTURE Prescriptions as of 10/26/2023 - apixaban (ELIQUIS DVT-PE TREAT 30D START) 5 mg (74 tabs) Take 2 tablets (10 mg) by mouth twice daily for 7 days. Then take 1 tablet (5 mg) by mouth twice daily for 23 days - metoprolol succinate ER (TOPROL XL) 50 mg 24 hr tablet Take 1 tablet by mouth once daily. - lisinopril (ZESTRIL) 40 mg tablet Take 1 tablet by mouth once daily. - hydroCHLOROthiazide 25 mg tablet Take 1 tablet by mouth once daily. - gabapentin (NEURONTIN) 300 mg capsule Take 300 mg by mouth daily at bedtime. - atorvastatin (LIPITOR) 40 mg tablet Take 1 tablet by mouth once daily. - levothyroxine (SYNTHROID) 125 mcg tablet TAKE 1 TABLET BY MOUTH EVERY DAY ON AN EMPTY STOMACH FOR THYROID - naproxen sodium (ALEVE) 220 mg tablet Take 220 mg by mouth twice daily with meals. - amoxicillin (POLYMOX, AMOXIL) 500 mg capsule Take four capsules one hour before dental procedure. - CPAP AutoPAP [id number]. Mask per preference, tubing, filters, humidity. Lifetime Supplies. Dx: G47.33. Fax 30 day compliance report to [phone]. - CPAP Please provide mask fitting. Pt [...] one(1) tablet daily. Facility-Administered Medications as of 10/26/2023 - magnesium oxide 400 mg tab(s) (MAG-OX) - benzocaine 1 Lozenge (CHOLORASEPTIC WARMING SORE THROAT) - lisinopril 40 mg tab(s) (ZESTRIL) - metoprolol tartrate (short acting) 25 mg tab(s) (LOPRESSOR) - WARFARIN DOSING PER PHARMACY - heparin iv infusion 25,000 units in NaCl 0.45% 250 mL STANDARD NOMOGRAM - heparin RATE CHANGE bolus 1,000-10,000 Units for subtherapeutic PTTAC results - atorvastatin 40 mg tab(s) (LIPITOR) - aspirin, enteric coated 81 mg tab(s) - levothyroxine (SYNTHROID) tab(s) 125 mcg - NaCl 0.9% iv flush bag - sodium chloride 0.9 % (flush) 2-10 mL (BD POSIFLUSH) - perflutren lipid microspheres 1.1 mg/mL 1.3 mL injection (DEFINITY) - gabapentin 300 mg cap(s) (NEURONTIN) Problem List As Of Date 10/26/2023 Noted Resolved Primary hypertension [I10] 03/11/2005 Hypertrophy of prostate with urinary obstructio*06/01/2006 BLADDER NECK OBSTRUCTION [N32.0] 06/01/2006 Plantar fascial fibromatosis [M72.2] 11/02/2006 05/09/2014 Ingrowing nail [L60.0] 11/26/2007 05/09/2014 Hypothyroidism [E03.9] 03/25/2009 Open fracture of distal phalangeal tuft [QVB066*08/31/2011 05/09/2014 Internal derangement of right knee [M23.91] [...] ASHD (arteriosclerotic heart disease) [I25.10] 09/14/2016 Hyperlipidemia [E78.5] 09/14/2016 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] 06/08/2018 Right buttock pain [M79.18] 02/04/2019 Ankle edema, bilateral [M25.471, M25.472] 02/04/2019 Class 2 obesity due to excess calories with bod*05/13/2019 Pre-operative examination [Z01.818] 05/13/2019 Primary osteoarthritis of right hip [M16.11] 05/13/2019 (more content not included)... Normal [facility] CONSULT PROGon 10-26-2023 CONSULT PROG HNO ID: [id number] Author: ANTHONY VIRAMONTES RP Service: Pharmacy Author Type: Pharmacist Type: Consult Progress Note Filed: 10/26/2023 17:31 Note Text: PHARMACY ANTICOAGULATION CONSULT Patient Name:Alex Parekh Admission Date: 10/23/2023 Date: 10/26/2023 Time: 5:31 PM Consult for warfarin dosing per pharmacy has been discontinued. Pharmacy will sign off. Please place order for warfarin dosing per pharmacy if pharmacy is to resume warfarin dosing. Thank you for allowing us to participate in the care of this patient. Anthony Viramontes RPh [facility] CONSULT PROG HNO ID: [id number] Author: RADHA MELGAR RPh Service: Pharmacy Author Type: Pharmacist Type: Consult Progress Note Filed: 10/26/2023 14:54 Note Text: PHARMACY ANTICOAGULATION CONSULT PATIENT NAME: Fran Parekh DATE of SERVICE: 10/26/2023 TIME of SERVICE: 2:43 PM Indication for Anticoagulation: Pulmonary Embolus Goal INR: 2.0 to 3.0 Expected Duration of Therapy: Indefinite Assessment: New Start: Yes Other Anticoagulants: heparin infusion Dosing Considerations/Precautions : fall risk Drug Interactions Heparin - has the potential to enhance anticoagulant effects which may include elevated INR and/or increased bleeding Levothyroxine - alterations in TSH may affect INR Evidence of side effects: Patient's nurse, Virgilio, reports no signs of bleeding or bruising Additional data elements ([facility]) Is INR less than 1.7? Yes Is bridge therapy active? Yes If responses above are Yes and No respectively, document contact with [facility] regarding bridge therapy: n/a Has phytonadione been administered during the current admission? No Current liver function test values within normal values? Yes Any relevant history of holding doses, significant bleeding, etc, that will influence subsequent warfarin dosing? No The dosing noted below matches the approved algorithm? No Rationale for dosing: Will order warfarin 7.5 mg on day 3 of initiation which aligns with CCAMP guidelines. Plan: Patient is currently subtherapeutic. Based on the dosing algorithm approved by the hospital Pharmacy and Therapeutics Committee, the following order will be initiated: Warfarin 7.5 mg PO x 1 dose Patient?s INR, condition, and signs/symptoms of bleeding will be monitored daily. Recommended post discharge dosing: Warfarin 7.5 mg, orally x 1 dose, with an INR check in 1 day. Thank you for allowing me to participate in the care for this patient. Current Laboratory Values Recent Labs 10/26/23 0549 10/25/23 0219 10/24/23 0759 10/23/23 0254 INR 1.0 1.0 1.0 1.0 Recent Labs 10/26/23 1312 10/26/23 0549 10/25/23 1501 10/25/23 0829 10/25/23 0219 APTT 60.0* 83.6* 71.9* 57.9* 101.3* Recent Labs 10/26/23 0549 10/25/23 0219 10/24/23 1528 HB 14.6 14.3 15.6 HCT 41.8 42.2 45.7 PLT 165 180 203 Recent Labs 10/26/23 0550 10/25/23 0219 10/24/23 0121 CREAT 1.34* 1.64* 1.43* Estimated Creatinine Clearance: 63 mL/min (A) (based on SCr of 1.34 mg/dL (H)). Recent Labs 10/23/23 0254 05/15/23 0959 11/02/22 0946 AST 19 23 26 ALT 18 23 27 ALKPHOS 75 76 83 TBILI 0.5 0.5 0.5 ALB 3.2* 3.9 3.7* Recent Labs 10/23/23 1014 11/07/22 1536 LVEF 57 59 Current Medications Current Facility-Administered Medications: magnesium oxide 400 mg tab(s) (MAG-OX) benzocaine 1 Lozenge (CHOLORASEPTIC WARMING SORE THROAT) lisinopril 40 mg tab(s) (ZESTRIL) metoprolol tartrate (short acting) 25 mg tab(s) (LOPRESSOR) WARFARIN DOSING PER PHARMACY heparin iv infusion 25,000 units in NaCl 0.45% 250 mL STANDARD NOMOGRAM AND heparin RATE CHANGE bolus 1,000-10,000 Units for subtherapeutic PTTAC results atorvastatin 40 mg tab(s) (LIPITOR) aspirin, enteric coated 81 mg tab(s) levothyroxine (SYNTHROID) tab(s) 125 mcg NaCl 0.9% iv flush bag [COMPLETED] ECHO AND sodium chloride 0.9 % (flush) 2-10 mL (BD POSIFLUSH) AND perflutren lipid microspheres 1.1 mg/mL 1.3 mL injection (DEFINITY) gabapentin 300 mg cap(s) (NEURONTIN) Has patient received education: Yes Radha Melgar PharmD, MS, BCPS Clinical Pharmacist October 26, 2023 2:45 PM Normal [facility] PT panel Coag (PPP)on 2023 INR Coag (PPP) [Relative time] 1.0 {INR} Normal 0.9-1.3 [facility] Comment on above: Order Comment: Tiffanie rollins Type: VENOUS BLOOD SPECIMEN Ordering Facility: [facility] Address: [address] [place] [address] Result Comment: Yvonne min K Antagonist (VKA) Therapeutic Range: INR 2 to 3 (Target INR of 2.5) Note: For patients treated with VKA drugs, such as warfarin, the [place] [employer] 2012 Guideline recommends a therapeutic INR range of 2 to 3 (target INR of 2.5). This recommendation includes high-risk patients with antiphospholipid syndrome with previous arterial or venous thromboembolism, current-generation mechanical or bioprosthetic aortic heart valve replacement. Note: Patients with mechanical aortic valve replacement and additional risk factors for thromboembolic events (atrial fibrillation, previous thromboembolism, LV dysfunction, hypercoagulable conditions) or an older generation mechanical AVR (i.e., ball in-Cage) or any mechanical MVR should have a INR therapeutic range of 2.5 to 3.5 (target INR of 3). Phuong GH, et al. Chest 2012, 141:7S-47S Saray RA, et al. JACC 2017, 70: 252-289 Performed By: #### 2 4344-4 #### [facility] CLIA [id number] [place] PT Coag (PPP) [Time] 11.6 s Normal 9.7-13.0 [facility] Comment on above: Order Comment: Speci men Type: VENOUS BLOOD SPECIMEN Ordering Facility: [facility] Address: [address] [place] [address] Performed By: #### 2 4344-4 #### [facility] CLIA [id number] [address] [place] [address] PTT, ANTICOAGULANT THERAPYon 10-26-2023 aPTT Coag (PPP) [Time] 31.8 s Normal 23.0-32.4 [facility] Comment on above: Order Comment: Speci men Type: BLOOD SPECIMEN Ordering Facility: [facility] Address: [address] [place] [address] Performed By: #### P TTA #### [facility] CLIA [id number] [address] [place] [address] aPTT Coag (PPP) [Time] 60.0 s High 23.0-32.4 [facility] Comment on above: Order Comment: Speci men Type: VENOUS BLOOD SPECIMEN Ordering Facility: [facility] Address: [address] [place] [address] Performed By: #### 2 4344-4 #### [facility] CLIA [id number] [address] [place] [address] aPTT Coag (PPP) [Time] 83.6 s High 23.0-32.4 [facility] Comment on above: Order Comment: Speci men Type: VENOUS BLOOD SPECIMEN Ordering Facility: [facility] Address: [address] [place] [address] Performed By: #### 2 4344-4 #### [facility] CLIA [id number] [address] [place] [address] THERAPY NTon 10-26-2023 THERAPY NT HNO ID: [id number] Author: DEVYN MOYER PT Service: Physical Therapy Author Type: Physical Therapist Type: Therapy (PT/OT/Speech/Resp) Filed: 10/26/2023 18:46 Note Text: Physical Therapy Evaluation Summary SERVICE DATE: 10/26/2023 SERVICE TIME: 1715 to 1745 ROOM: [place] [address] PT 6 Clicks Score: 21 DISCHARGE RECOMMENDATIONS Home PT Recommended Discharge Equipment: No equipment needs anticipated ASSESSMENT Response to Therapy Interventions: Good Participation in Activities O2 saturation monitored to maintain in the low 90's during ambulation when on RA PRECAUTIONS Fall Risk, DVT, Bed/Chair Alarm Mobilize CURRENT HOSPITAL COURSE R LE DVT, Saddle PE Relevant Past Medical History: Obesity, Cervical radiculopathy, Low back pain, Sciatica, R hip OA, diverticulosis, essential HTN, HLD, hypothyroidism, intention tremor, MARTIN, refer to chart HOME LIVING Patient Lives With: Self/Alone Assistance Available: Part-Time Entry To Home: Stairs, Without Rail Number Of Stairs Into Home: 2 Number Of Stairs To Bed/Bath: 1st floor 1/2 bath, 12 steps to full bath and bedroom Stairs to Bed/Bath with: Unilateral Rail Laundry: basement Equipment Owned: Walker- Wheeled, Cane, Shower Chair, Grab Bars- Shower PRIOR FUNCTIONAL LEVEL Within Functional Limits Ind ambulator without an AD, ind with ADL's and IADL's SUBJECTIVE Agreeable to participate in therapy THERAPY DIAGNOSIS Reduced mobility-other TREATMENT INTERVENTIONS Evaluation, Gait Training (50942) Timed Code Treatment (minutes): 10 Skilled Treatment Time (minutes): 30 TRAINING AND EDUCATION PROVIDED Assistive Device Use, Benefits of In-Hospital Mobility, Discharge Planning, Disease Specific Education, Equipment, Gait Pattern, Reduction of Deviations, Positioning, Pre-gait Activities, Role of Physical Therapy, Standing Balance, Transfers THERAPEUTIC SKILLS USED Activity Dosing, Cues for Sequencing/Proper Technique for Activity, Cuing Tactile, Cuing Verbal, Cuing Visual, Physical Assist FUNCTIONAL STATUS Bed Mobility Scooting: Stand By Assistance Transfers Sit To Stand: Stand By Assistance Stand To Sit: Stand By Assistance Bed to Chair Gait Contact Guard Assistance Gait Device: Wheeled Walker General Deviations/Observations: Oralia decreased, Flexed trunk posture, Step length decreased (SOB with exertion) Gait Distance (feet): 300 Stairs GOALS Patient will demonstrate progress with functional mobility to allow safe discharge to home with available support and/or physical assistance. Rehab Potential: Good PLAN PT Frequency: 2 Times Per Week Treatment Interventions: Education, Functional Mobility Training, Strengthening, Balance Training Plan for Next Visit: Bed Mobility, Gait Training, Stair Training, Standing Balance, Standing Tolerance, Walker Training SIGNATURE: Devyn Moyer, PT PATIENT NAME: Fran Parekh DATE: October 26, 2023 TIME: 6:46 PM Normal [facility] Basic metabolic 2000 panelon 10-25-2023 Anion gap [Moles/Vol] 10 mmol/L Normal 8-15 [facility] Comment on above: Order Comment: Speci men Type: VENOUS BLOOD SPECIMEN Ordering Facility: [facility] Address: [address] [place] [address] Performed By: #### 2 4344-4 #### [facility] CLIA [id number] [address] [place] [address] [place] Calcium [Mass/Vol] 8.7 mg/dL Normal 8.5-10.2 [facility] Comment on above: Order Comment: Speci men Type: VENOUS BLOOD SPECIMEN Ordering Facility: [facility] Address: [address] [place] [address] Performed By: #### 2 4344-4 #### [facility] CLIA [id number] [address] [place] [address] [place] Chloride [Moles/Vol] 105 mmol/L Normal 98-107 [facility] Comment on above: Order Comment: Speci men Type: VENOUS BLOOD SPECIMEN Ordering Facility: [facility] Address: [address] [place] [address] Performed By: #### 2 4344-4 #### [facility] CLIA [id number] [address] [place] [address] [place] CO2 [Moles/Vol] 27 mmol/L Normal 22-30 [facility] Comment on above: Order Comment: Speci men Type: VENOUS BLOOD SPECIMEN Ordering Facility: [facility] Address: [address] [place] [address] Performed By: #### 2 4344-4 #### [facility] CLIA [id number] [address] [place] [address] [place] Creatinine [Mass/Vol] 1.64 mg/dL High 0.73-1.22 [facility] Comment on above: Order Comment: Speci men Type: VENOUS BLOOD SPECIMEN Ordering Facility: [facility] Address: [address] [place] [address] Performed By: #### 2 4344-4 #### [facility] CLIA [id number] [address] [place] [address] [place] Creatinine and Glomerular filtration rate.predicted panel (S/P/Bld) 42 mL/min/1.73m??? Low >=60 [facility] Comment on above: Order Comment: Tiffanie rollins Type: VENOUS BLOOD SPECIMEN Ordering Facility: [facility] Address: [address] [place] [address] Result Comment: Danika mated Glomerular Filtration Rate (eGFR) is calculated using the 2020 CKD-EPI creatinine equation. This equation utilizes serum creatinine, sex, and age as parameters. The creatinine assay has traceable calibration to isotope dilution-mass spectrometry. Refer to KDIGO guidelines for clinical interpretation. In patients with unstable renal function, e.g. those with acute kidney injury, the eGFR may not accurately reflect actual GFR. Performed By: #### 2 4344-4 #### [facility] CLIA [id number] [place] [address] [place] Glucose [Mass/Vol] 107 mg/dL High 74-99 [facility] Comment on above: Order Comment: Tiffanie rollins Type: VENOUS BLOOD SPECIMEN Ordering Facility: [facility] Address: [address] [place] [address] Result Comment: The [place] [employer] (ADA) provides guidance for cutoff values for fasting glucose and random glucose. The ADA defines fasting as no caloric intake for at least 8 hours. Fasting plasma glucose results between 100 to 125 mg/dL indicate increased risk for diabetes (prediabetes). Fasting plasma glucose results greater than or equal to 126 mg/dL meet the criteria for diagnosis of diabetes. In the absence of unequivocal hyperglycemia, results should be confirmed by repeat testing. In a patient with classic symptoms of hyperglycemia or hyperglycemic crisis, random plasma glucose results greater than or equal to 200 mg/dL meet the criteria for diagnosis of diabetes. Reference: Standards of Medical Care in Diabetes 2016, [place] [employer]. Diabetes Care. 2016.39(Suppl 1). Performed By: #### 2 4344-4 #### [facility] CLIA [id number] [address] [place] [address] [place] Potassium [Moles/Vol] 3.9 mmol/L Normal 3.7-5.1 [facility] Comment on above: Order Comment: Speci men Type: VENOUS BLOOD SPECIMEN Ordering Facility: [facility] Address: [address] [place] [address] Performed By: #### 2 4344-4 #### [facility] CLIA [id number] [address] [place] [address] [place] Sodium [Moles/Vol] 142 mmol/L Normal 136-144 [facility] Comment on above: Order Comment: Speci men Type: VENOUS BLOOD SPECIMEN Ordering Facility: [facility] Address: [address] [place] [address] Performed By: #### 2 4344-4 #### [facility] CLIA [id number] [address] [place] [address] [place] Urea nitrogen [Mass/Vol] 24 mg/dL Normal 9-24 [facility] Comment on above: Order Comment: Speci men Type: VENOUS BLOOD SPECIMEN Ordering Facility: [facility] Address: [address] [place] [address] Performed By: #### 2 4344-4 #### [facility] CLIA [id number] [address] [place] [address] [facility] [place] CBC panel Auto (Bld)on 10-24 Erythrocyte distribution width (RBC) [Ratio] 14.4 % Normal 11.5-15.0 [facility] Comment on above: Order Comment: Speci men Type: BLOOD SPECIMENOrdering Facility: [facility] Address: [address] [place] [address] Performed By: #### 5 8410-2 ####[facility] [id number] [address] [place] Hematocrit (Bld) [Volume fraction] 42.2 % Normal 39.0-51.0 [facility] Comment on above: Order Comment: Speci men Type: BLOOD SPECIMENOrdering Facility: [facility] Address: [address] [place] [address] Performed By: #### 5 8410-2 ####[facility] [id number] [address] Hemoglobin (Bld) [Mass/Vol] 14.3 g/dL Normal 13.0-17.0 [facility] Comment on above: Order Comment: Speci men Type: BLOOD SPECIMENOrdering Facility: [facility] Address: [address] [place] [address] Performed By: #### 5 8410-2 ####[facility] [id number] [address] [place] MCH (RBC) [Entitic mass] 32.3 pg Normal 26.0-34.0 [facility] Comment on above: Order Comment: Speci men Type: BLOOD SPECIMENOrdering Facility: [facility] Address: [address] [place] [address] Performed By: #### 5 8410-2 ####[facility] [id number] [address] [place] [facility] MCHC (RBC) [Mass/Vol] 33.9 g/dL Normal 30.5-36.0 [facility] Comment on above: Order Comment: Speci men Type: BLOOD SPECIMENOrdering Facility: [facility] Address: [address] [place] [address] Performed By: #### 5 8410-2 ####[facility] [id number] [address] MCV (RBC) [Entitic vol] 95.3 fL Normal 80.0-100.0 [facility] Comment on above: Order Comment: Speci men Type: BLOOD SPECIMENOrdering Facility: [facility] Address: [address] [place] [address] Performed By: #### 5 8410-2 ####[facility] [id number] [address] [place] Nucleated RBC (Bld) [#/Vol] 10*3/uL Normal <0.01 [facility] Comment on above: Order Comment: Speci men Type: BLOOD SPECIMENOrdering Facility: [facility] Address: [address] [place] [address] Performed By: #### 5 8410-2 ####[facility] [id number] [place] [id number] [place] Platelet mean volume (Bld) [Entitic vol] 9.8 fL Normal 9.0-12.7 [facility] Comment on above: Order Comment: Speci men Type: BLOOD SPECIMENOrdering Facility: [facility] Address: [address] [place] [address] Performed By: #### 5 8410-2 ####[facility] [id number] [place] [id number] [place] Platelets (Bld) [#/Vol] 180 10*3/uL Normal 150-400 [facility] Comment on above: Order Comment: Speci men Type: BLOOD SPECIMENOrdering Facility: [facility] Address: [address] [place] [address] Performed By: #### 5 8410-2 ####[facility] [id number] [place] [address] [place] RBC (Bld) [#/Vol] 4.43 10*6/uL Normal 4.20-6.00 [facility] Comment on above: Order Comment: Speci men Type: BLOOD SPECIMENOrdering Facility: [facility] Address: [address] [place] [address] Performed By: #### 5 8410-2 ####[facility] [id number] [place] [id number] [place] WBC (Bld) [#/Vol] 10.95 10*3/uL Normal 3.70-11.00 [facility] Comment on above: Order Comment: Speci men Type: BLOOD SPECIMENOrdering Facility: [facility] Address: [address] [place] [address] Performed By: #### 5 8410-2 ####[facility] [id number] [place] [id number] [facility] [place] CONSULT PROGon 10-25-2023 CONSULT PROG HNO ID: [id number] Author: [facility] Service: Pharmacy Author Type: Pharmacist Type: Consult Progress Note Filed: 10/25/2023 12:01 Note Text: PHARMACY ANTICOAGULATION CONSULT PATIENT NAME: Fran Parekh DATE of SERVICE: 10/25/2023 TIME of SERVICE: 11:43 AM Indication for Anticoagulation: Pulmonary Embolus Goal INR: 2.0 to 3.0 Expected Duration of Therapy: Indefinite Assessment: New Start: Yes Other Anticoagulants: Heparin drip Dosing Considerations/Precautions : High fall risk, and Renal Insufficiency Drug Interactions: - Heparin (bridging) can increase risk of bleeding - Levothyroxine (home med): alterations in TSH can affect INR Evidence of side effects?: No, per bedside RN Additional data elements ([facility]) Is INR less than 1.7? Yes Is bridge therapy active? Yes If responses above are Yes and No respectively, document contact with [facility] regarding bridge therapy: N/A Has phytonadione been administered during the current admission? No Current liver function test values within normal values? Yes Any relevant history of holding doses, significant bleeding, etc, that will influence subsequent warfarin dosing? No The dosing noted below matches the approved algorithm? Yes Rationale for dosing: New start, day 2 - continue 5 mg dose today Plan: Patient is currently subtherapeutic. Based on the dosing algorithm approved by the community health systems Pharmacy and Therapeutics Committee, the following order will be initiated: Warfarin 5 mg PO x 1 dose Patient?s INR, condition, and signs/symptoms of bleeding will be monitored daily. Recommended post discharge dosing: Warfarin 5 mg, orally today, with an INR check in 1 days. Thank you for allowing me to participate in the care for this patient. Current Laboratory Values Recent Labs 10/25/23 0829 10/25/23 0219 10/24/23 1528 10/24/23 0759 10/23/23 0833 10/23/23 0254 APTT 57.9* 101.3* 30.0 50.7* < > 42.3* INR -- 1.0 -- 1.0 -- 1.0 < > = values in this interval not displayed. Recent Labs 10/25/23 0219 10/24/23 1528 10/24/23 0121 10/23/23 0254 HB 14.3 15.6 14.2 14.5 HCT 42.2 45.7 42.2 42.6 PLT 180 203 151 184 Estimated Creatinine Clearance: 51.5 mL/min (A) (based on SCr of 1.64 mg/dL (H)). Current Medications Current Facility-Administered Medications Medication Dose Route Frequency atorvastatin 40 mg tab(s) (LIPITOR) 40 mg ORAL AT BEDTIME aspirin, enteric coated 81 mg tab(s) 81 mg ORAL DAILY levothyroxine (SYNTHROID) tab(s) 125 mcg 125 mcg ORAL DAILY (6 AM) NaCl 0.9% iv flush bag 20 mL INTRAVENOUS PRN sodium chloride 0.9 % (flush) 2-10 mL (BD POSIFLUSH) 2-10 mL INTRAVENOUS DIRECTED PRN And perflutren lipid microspheres 1.1 mg/mL 1.3 mL injection (DEFINITY) 1.3 mL INTRAVENOUS DIRECTED PRN gabapentin 300 mg cap(s) (NEURONTIN) 300 mg ORAL AT BEDTIME benzocaine 1 Lozenge (CHOLORASEPTIC WARMING SORE THROAT) 1 Lozenge MUCOUS MEMBRANE (TOPICAL MOUTH AND THROAT) q 2 H PRN lisinopril 40 mg tab(s) (ZESTRIL) 40 mg ORAL DAILY metoprolol tartrate (short acting) 25 mg tab(s) (LOPRESSOR) 25 mg ORAL q 12 H WARFARIN DOSING PER PHARMACY 1 Each OTHER DAILY - WARFARIN heparin iv infusion 25,000 units in NaCl 0.45% 250 mL STANDARD NOMOGRAM 0-3,000 Units/hr INTRAVENOUS CONTINUOUS And heparin RATE CHANGE bolus 1,000-10,000 Units for subtherapeutic PTTAC results 1,000-10,000 Units INTRAVENOUS PRN Has patient received education: No Signature: Cole Felton [facility] Pager/Extension: [phone] Normal [facility] Magnesium SerPl-mCncon 10-24 Magnesium [Mass/Vol] 1.8 mg/dL Normal 1.7-2.3 [facility] Comment on above: Order Comment: Speci men Type: VENOUS BLOOD SPECIMEN Ordering Facility: [facility] Address: [address] [place] [address] Performed By: #### 2 4344-4 #### [facility] CLIA [id number] [facility] NURSING PROGon 10-25-2023 NURSING PROG HNO ID: [id number] Author: KARLA KEATING, RN Service: ? Author Type: Registered Nurse Type: Nursing Progress Note Filed: 10/25/2023 23:21 Note Text: 2319: page to hospitalist Fran Parekh PK228 pt had 7 beats v-tach, asymptomatic. Lance [id number]: Direct message from Dr. Macario MD page was received ! no intervention needed [facility] NURSING PROG HNO ID: [id number] Author: KARLA KEATING, RN Service: ? Author Type: Registered Nurse Type: Nursing Progress Note Filed: 10/25/2023 03:27 Note Text: 0328: page to hospitalist Fran Parekh PK228 urgent lab value called to unit. PTT = 101.3. per nomogram, stopping for 1 hr then restarting at 1600u. van Vargas [id number] [facility] PT EDon 10-25-2023 PT ED HNO ID: [id number] Author: COLE FELTON [facility] Service: Pharmacy Author Type: Pharmacist Type: Patient Education Filed: 10/25/2023 15:58 Note Text: PHARMACY ANTICOAGULATION EDUCATION Patient Name: Farn Parekh Account #: Data Unavailable Admission Date: 10/23/2023 2:07 AM Date of Contact: October 25, 2023 Time of Contact: 3:58 PM Patient anticipated to be discharged on warfarin as oral anticoagulant therapy. Anticoagulant history: Patient is new to 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 therapy Outpatient follow-up plan: Follow-up to be determined. Patient from [facility] Indication for oral 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: pulmonary embolus (PE) Target INR range: 2.0 - 3.0 (Target 2.5) Warfarin education status: Patient received full warfarin education Reason for taking warfarin How warfarin works What the INR test is, frequency of testing, and the importance of monitoring warfarin When to take warfarin and what to do if a dose is missed Identifying tablet(s) and to notify the doctor/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 clinic if there is a change in tablet color, shape, or markings Drug interactions (Rx, OTC, herbal) and importance of notifying the doctor or 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 clinic with any changes Do not take or discontinue any medication or over the counter medication except on the advice of the physician or pharmacist Signs/symptoms of bleeding and what to do if they occur Precautionary measures to decrease trauma/bleeding Signs/symptoms of thrombosis and what to do if they occur Need to limit or avoid alcohol consumption Dietary considerations emphasizing a ?consistent amount? of foods with vitamin K rather than avoiding foods with vitamin K and to avoid major changes in dietary habits, or to notify health professional before changing habits Carrying identification Importance of notifying healthcare provider and 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 clinic when hospitalizations occur and when another healthcare provider has asked them to stop/hold warfarin before any procedure Importance of notifying all healthcare providers they are taking warfarin Use of control measures, if applicable The importance of taking warfarin as instructed and the potential ramifications of non-compliance were explained to the patient. The patient was provided ?Understanding the Anticoagulant Medication Warfarin? education booklet which includes the following: compliance Issues, dietary advice, follow-up with physician, follow- up monitoring, potential adverse drug reactions and interactions. Cole Felton, [facility] Normal [facility] PT panel Coag (PPP)on 2023 INR Coag (PPP) [Relative time] 1.0 {INR} Normal 0.9-1.3 [facility] Comment on above: Order Comment: Speci men Type: BLOOD SPECIMEN Ordering Facility: [facility] Address: [address], [place] [id number] Result Comment: Yvonne min K Antagonist (VKA) Therapeutic Range: INR 2 to 3 (Target INR of 2.5) Note: For patients treated with VKA drugs, such as warfarin, the [place] [employer] 2012 Guideline recommends a therapeutic INR range of 2 to 3 (target INR of 2.5). This recommendation includes high-risk patients with antiphospholipid syndrome with previous arterial or venous thromboembolism, current-generation mechanical or bioprosthetic aortic heart valve replacement. Note: Patients with mechanical aortic valve replacement and additional risk factors for thromboembolic events (atrial fibrillation, previous thromboembolism, LV dysfunction, hypercoagulable conditions) or an older generation mechanical AVR (i.e., ball in-Cage) or any mechanical MVR should have a INR therapeutic range of 2.5 to 3.5 (target INR of 3). Phuong GH, et al. Chest 2012, 141:7S-47S Saray RA, et al. [facility] 2017, 70: 252-289 Performed By: #### P TTAC #### [facility] CLIA [id number] [address] [place] [address] [place] PT Coag (PPP) [Time] 11.6 s Normal 9.7-13.0 [facility] Comment on above: Order Comment: Speci men Type: BLOOD SPECIMEN Ordering Facility: [facility] Address: [address] [place] [address] Performed By: #### P TTAC #### [facility] CLIA [id number] [address] [place] [address] [place] PTT, ANTICOAGULANT THERAPYon 10-25-2023 aPTT Coag (PPP) [Time] 71.9 s High 23.0-32.4 [facility] Comment on above: Order Comment: Speci men Type: BLOOD SPECIMENOrdering Facility: [facility] Address: [address] [place] [address] Performed By: #### P TTAC ####[facility] [id number] [place] [address] [place] aPTT Coag (PPP) [Time] 57.9 s High 23.0-32.4 [facility] Comment on above: Order Comment: Speci men Type: BLOOD SPECIMEN Ordering Facility: [facility] Address: [address] [place] [address] Performed By: #### P TTAC #### [facility] CLIA [id number] [address] [place] [address] [place] aPTT Coag (PPP) [Time] 101.3 s High 23.0-32.4 [facility] Comment on above: Order Comment: Speci men Type: BLOOD SPECIMEN Ordering Facility: [facility] Address: [address] [place] [address] Performed By: #### P TTAC #### [facility] CLIA [id number] [address] [place] [address] ALLIED HEALTHon 10-24-2023 ALLIED HEALTH HNO ID: [id number] Author: JUAN C ESCOTO Chaplain Service: Spiritual Care Author Type: Jewelry Facer Type: Allied Health Filed: 10/24/2023 14:08 Note Text: SPIRITUALCARE Spiritual Care Visit- Brief Note Name: Fran Parekh Date: October 24, 2023 Notes: While engaging in spiritual care rounds on the SICU unit, I visited the patient and introduced spiritual care services. 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 Jewelry Facer provided caring presence and responses, interactive listening and connected patient to a reflection in mindfulness concentrating on love. I provided further spiritual presence and bucolical support through an offer of prayers. Patient was grateful. I shared inspector conveyor line availability. To contact the Spiritual Care Department: Please call [phone] or Page the On-Call Jewelry Facer at pager [phone]. Thank you for the opportunity to be of service. SIGNATURE: Chaplain Alphonse PATIENT NAME: Fran Parekh DATE: October 24, 2023 TIME: 8:45 AM This is an electronically created document. IF PRINTED, PLEASE DO NOT REMOVE FROM THE CHART OR MODIFY PRINTED COPY. Normal [facility] Basic metabolic 2000 panelon 10-24-2023 Anion gap [Moles/Vol] 11 mmol/L Normal 8-15 [facility] Comment on above: Order Comment: Speci men Type: BLOOD SPECIMEN Ordering Facility: [facility] Address: [address] [place] [address] Performed By: #### P TTA, 22960-2 #### [facility] CLIA [id number] [place] [address] [place] Calcium [Mass/Vol] 8.4 mg/dL Low 8.5-10.2 [facility] Comment on above: Order Comment: Speci men Type: BLOOD SPECIMEN Ordering Facility: [facility] Address: [address] [place] [address] Performed By: #### P TTA, 81589-4 #### [facility] CLIA [id number] [address] [place] [address] [place] Chloride [Moles/Vol] 106 mmol/L Normal 98-107 [facility] Comment on above: Order Comment: Speci men Type: BLOOD SPECIMEN Ordering Facility: [facility] Address: [address] [place] [address] Performed By: #### P TTAC, 83765-3 #### [facility] CLIA [id number] [place] [address] [place] CO2 [Moles/Vol] 21 mmol/L Low 22-30 [facility] Comment on above: Order Comment: Speci men Type: BLOOD SPECIMEN Ordering Facility: [facility] Address: [address] [place] [address] Performed By: #### P TTAC, 91133-5 #### [facility] CLIA [id number] [address] [place] [address] [place] Creatinine [Mass/Vol] 1.43 mg/dL High 0.73-1.22 [facility] Comment on above: Order Comment: Speci men Type: BLOOD SPECIMEN Ordering Facility: [facility] Address: [address] [place] [address] Performed By: #### P TTAC, 43766-3 #### [facility] CLIA [id number] [address] [place] [address] Creatinine and Glomerular filtration rate.predicted panel (S/P/Bld) 50 mL/min/1.73m??? Low >=60 [facility] Comment on above: Order Comment: Speci men Type: BLOOD SPECIMEN Ordering Facility: [facility] Address: [address] [place] [address] Result Comment: Danika mated Glomerular Filtration Rate (eGFR) is calculated using the 2020 CKD-EPI creatinine equation. This equation utilizes serum creatinine, sex, and age as parameters. The creatinine assay has traceable calibration to isotope dilution-mass spectrometry. Refer to KDIGO guidelines for clinical interpretation. In patients with unstable renal function, e.g. those with acute kidney injury, the eGFR may not accurately reflect actual GFR. Performed By: #### P TTAC, 65642-6 #### [facility] CLIA [id number] [address] [place] [address] [place] Glucose [Mass/Vol] 107 mg/dL High 74-99 [facility] Comment on above: Order Comment: Tiffanie rollins Type: BLOOD SPECIMEN Ordering Facility: [facility] Address: [address] [place] [address] Result Comment: The [place] [employer] (ADA) provides guidance for cutoff values for fasting glucose and random glucose. The ADA defines fasting as no caloric intake for at least 8 hours. Fasting plasma glucose results between 100 to 125 mg/dL indicate increased risk for diabetes (prediabetes). Fasting plasma glucose results greater than or equal to 126 mg/dL meet the criteria for diagnosis of diabetes. In the absence of unequivocal hyperglycemia, results should be confirmed by repeat testing. In a patient with classic symptoms of hyperglycemia or hyperglycemic crisis, random plasma glucose results greater than or equal to 200 mg/dL meet the criteria for diagnosis of diabetes. Reference: Standards of Medical Care in Diabetes 2016, [place] [employer]. Diabetes Care. 2016.39(Suppl 1). Performed By: #### P TTAC, 36833-9 #### [facility] CLIA [id number] [address] [place] [address] [place] Potassium [Moles/Vol] 4.0 mmol/L Normal 3.7-5.1 [facility] Comment on above: Order Comment: Tiffanie rollins Type: BLOOD SPECIMEN Ordering Facility: [facility] Address: [address] [place] [address] Performed By: #### P TTAC, 56191-5 #### [facility] CLIA [id number] [address] [place] [address] [place] Sodium [Moles/Vol] 138 mmol/L Normal 136-144 [facility] Comment on above: Order Comment: Tiffanie rollins Type: BLOOD SPECIMEN Ordering Facility: [facility] Address: [address] [place] [address] Performed By: #### P TTAC, 55631-3 #### [facility] CLIA [id number] [address] [place] [address] [place] Urea nitrogen [Mass/Vol] 23 mg/dL Normal 9-24 [facility] Comment on above: Order Comment: Tiffanie rollins Type: BLOOD SPECIMEN Ordering Facility: [facility] Address: [address] [place] [address] Performed By: #### P [facility], 55976-5 #### [facility] CLIA [id number] CBC panel Auto (Bld)on 10-23 Erythrocyte distribution width (RBC) [Ratio] 14.3 % Normal 11.5-15.0 [facility] Comment on above: Order Comment: Speci men Type: BLOOD SPECIMENOrdering Facility: [facility] Address: [address] [place] [address] Performed By: #### 5 8410-2 ####[facility] [id number] [address] Hematocrit (Bld) [Volume fraction] 45.7 % Normal 39.0-51.0 [facility] Comment on above: Order Comment: Speci men Type: BLOOD SPECIMENOrdering Facility: [facility] Address: [address] [place] [address] Performed By: #### 5 8410-2 ####[facility] [id number] [address] [place] Hemoglobin (Bld) [Mass/Vol] 15.6 g/dL Normal 13.0-17.0 [facility] Comment on above: Order Comment: Speci men Type: BLOOD SPECIMENOrdering Facility: [facility] Address: [address] [place] [address] Performed By: #### 5 8410-2 ####[facility] [id number] [address] [place] MCH (RBC) [Entitic mass] 32.4 pg Normal 26.0-34.0 [facility] Comment on above: Order Comment: Speci men Type: BLOOD SPECIMENOrdering Facility: [facility] Address: [address] [place] [address] Performed By: #### 5 8410-2 ####[facility] [id number] [place] [address] [place] MCHC (RBC) [Mass/Vol] 34.1 g/dL Normal 30.5-36.0 [facility] Comment on above: Order Comment: Speci men Type: BLOOD SPECIMENOrdering Facility: [facility] Address: [address] [place] [address] Performed By: #### 5 8410-2 ####[facility] [id number] [place] [address] [place] MCV (RBC) [Entitic vol] 94.8 fL Normal 80.0-100.0 [facility] Comment on above: Order Comment: Speci men Type: BLOOD SPECIMENOrdering Facility: [facility] Address: [address] [place] [address] Performed By: #### 5 8410-2 ####[facility] [id number] [place] [address] [place] Nucleated RBC (Bld) [#/Vol] 10*3/uL Normal <0.01 [facility] Comment on above: Order Comment: Speci men Type: BLOOD SPECIMENOrdering Facility: [facility] Address: [address] [place] [address] Performed By: #### 5 8410-2 ####[facility] [id number] [place] [address] [place] Platelet mean volume (Bld) [Entitic vol] 9.6 fL Normal 9.0-12.7 [facility] Comment on above: Order Comment: Speci men Type: BLOOD SPECIMENOrdering Facility: [facility] Address: [address] [place] [address] Performed By: #### 5 8410-2 ####[facility] [id number] [place] [address] [place] Platelets (Bld) [#/Vol] 203 10*3/uL Normal 150-400 [facility] Comment on above: Order Comment: Speci men Type: BLOOD SPECIMENOrdering Facility: [facility] Address: [address] [place] [address] Performed By: #### 5 8410-2 ####[facility] [id number] [place] [id number] [place] RBC (Bld) [#/Vol] 4.82 10*6/uL Normal 4.20-6.00 [facility] Comment on above: Order Comment: Speci men Type: BLOOD SPECIMENOrdering Facility: [facility] Address: [address] [place] [address] Performed By: #### 5 8410-2 ####[facility] [id number] [place] [address] [place] WBC (Bld) [#/Vol] 11.53 10*3/uL High 3.70-11.00 [facility] Comment on above: Order Comment: Speci men Type: BLOOD SPECIMENOrdering Facility: [facility] Address: [address] [place] [address] Performed By: #### 5 8410-2 ####[facility]IA [id number] [address] [place] Erythrocyte distribution width (RBC) [Ratio] 14.5 % Normal 11.5-15.0 [facility] Comment on above: Order Comment: Speci men Type: BLOOD SPECIMEN Ordering Facility: [facility] Address: [address] [place] [address] Performed By: #### P TTAC #### [facility] CLIA [id number] [address] [place] [address] [place] Hematocrit (Bld) [Volume fraction] 42.2 % Normal 39.0-51.0 [facility] Comment on above: Order Comment: Speci men Type: BLOOD SPECIMEN Ordering Facility: [facility] Address: [address] [place] [address] Performed By: #### P TTAC #### [facility] CLIA [id number] [address] [place] [address] [place] Hemoglobin (Bld) [Mass/Vol] 14.2 g/dL Normal 13.0-17.0 [facility] Comment on above: Order Comment: Speci men Type: BLOOD SPECIMEN Ordering Facility: [facility] Address: [address] [place] [address] Performed By: #### P TTAC #### [facility] CLIA [id number] [address] [place] [address] [place] MCH (RBC) [Entitic mass] 32.1 pg Normal 26.0-34.0 [facility] Comment on above: Order Comment: Speci men Type: BLOOD SPECIMEN Ordering Facility: [facility] Address: [address] [place] [address] Performed By: #### P TTAC #### [facility] CLIA [id number] [address] [place] [address] [place] MCHC (RBC) [Mass/Vol] 33.6 g/dL Normal 30.5-36.0 [facility] Comment on above: Order Comment: Speci men Type: BLOOD SPECIMEN Ordering Facility: [facility] Address: [address] [place] [address] Performed By: #### P TTAC #### [facility] CLIA [id number] [address] [place] [address] [place] MCV (RBC) [Entitic vol] 95.5 fL Normal 80.0-100.0 [facility] Comment on above: Order Comment: Speci men Type: BLOOD SPECIMEN Ordering Facility: [facility] Address: [address] [place] [address] Performed By: #### P TTAC #### [facility] CLIA [id number] [address] [place] [address] [place] Nucleated RBC (Bld) [#/Vol] 10*3/uL Normal <0.01 [facility] Comment on above: Order Comment: Speci men Type: BLOOD SPECIMEN Ordering Facility: [facility] Address: [address] [place] [address] Performed By: #### P TTAC #### [facility] CLIA [id number] [address] [place] [address] [place] Platelet mean volume (Bld) [Entitic vol] 9.8 fL Normal 9.0-12.7 [facility] Comment on above: Order Comment: Speci men Type: BLOOD SPECIMEN Ordering Facility: [facility] Address: [address] [place] [address] Performed By: #### P TTAC #### [facility] CLIA [id number] [address] [place] [address] [place] Platelets (Bld) [#/Vol] 151 10*3/uL Normal 150-400 [facility] Comment on above: Order Comment: Speci men Type: BLOOD SPECIMEN Ordering Facility: [facility] Address: [address] [place] [address] Performed By: #### P TTAC #### [facility] CLIA [id number] [address] [place] [address] [place] RBC (Bld) [#/Vol] 4.42 10*6/uL Normal 4.20-6.00 [facility] Comment on above: Order Comment: Speci men Type: BLOOD SPECIMEN Ordering Facility: [facility] Address: [address] [place] [address] Performed By: #### P TTAC #### [facility] CLIA [id number] [address] [place] [address] [place] WBC (Bld) [#/Vol] 10.84 10*3/uL Normal 3.70-11.00 [facility] Comment on above: Order Comment: Speci men Type: BLOOD SPECIMEN Ordering Facility: [facility] Address: [address] [place] [address] Performed By: #### P TTAC #### [facility] CLIA [id number] [address] [place] [address] [place] CONSULT PROGon 10-24-2023 CONSULT PROG HNO ID: [id number] Author: SISSY MARTINEZ RPh Service: Pharmacy Author Type: Pharmacist Type: Consult Progress Note Filed: 10/24/2023 15:16 Note Text: PHARMACY ANTICOAGULATION CONSULT PATIENT NAME: Fran Parekh DATE of SERVICE: 10/24/2023 TIME of SERVICE: 1:05 PM Indication for Anticoagulation: Pulmonary Embolus Goal INR: 2.0 to 3.0 Expected Duration of Therapy: Indefinite Assessment: New Start: Yes Other Anticoagulants: Heparin drip Dosing Considerations/Precautions : Renal Insufficiency (Hx of CKD) Drug Interactions: Heparin: can increase risk of bleeding Aspirin (home med): can increase risk of bleeding Levothyroxine (home med): alterations in TSH can affect INR Evidence of side effects?: No (discussed with CHAD Ly) Additional data elements ([facility]) Is INR less than 1.7? Yes Is bridge therapy active? Yes Has phytonadione been administered during the current admission? No Current liver function test values within normal values? Yes, except albumin slightly low at 3.2 Any relevant history of holding doses, significant bleeding, etc, that will influence subsequent warfarin dosing? No The dosing noted below matches the approved algorithm? Yes Rationale for dosing: Patient is a new start, therefore will start with 5 mg today (no indication to start with lower dose). Plan: Patient is currently subtherapeutic. Based on the dosing algorithm approved by the hospital Pharmacy and Therapeutics Committee, the following order will be initiated: Warfarin 5 mg PO x 1 dose Patient?s INR, condition, and signs/symptoms of bleeding will be monitored daily. Recommended post discharge dosing: Warfarin 5 mg, orally daily, with an INR check in 1 day. Thank you for allowing me to participate in the care for this patient. Current Laboratory Values Recent Labs 10/24/23 0759 10/24/23 0121 10/23/23 1612 10/23/23 0833 10/23/23 0254 APTT 50.7* 55.2* 108.8* 100.7* 42.3* INR -- -- -- -- 1.0 Recent Labs 10/24/23 0121 10/23/23 0254 HB 14.2 14.5 HCT 42.2 42.6 PLT 151 184 Estimated Creatinine Clearance: 59 mL/min (A) (based on SCr of 1.43 mg/dL (H)). Latest Reference Range AND Units 10/23/23 02:54 Albumin 3.9 - 4.9 g/dL 3.2 (L) Bilirubin, Total 0.2 - 1.3 mg/dL 0.5 Alkaline Phosphatase 38 - 113 U/L 75 ALT 10 - 54 U/L 18 (L): Data is abnormally low Current Medications Current Facility-Administered Medications Medication Dose Route Frequency atorvastatin 40 mg tab(s) (LIPITOR) 40 mg ORAL AT BEDTIME aspirin, enteric coated 81 mg tab(s) 81 mg ORAL DAILY levothyroxine (SYNTHROID) tab(s) 125 mcg 125 mcg ORAL DAILY (6 AM) NaCl 0.9% iv flush bag 20 mL INTRAVENOUS PRN sodium chloride 0.9 % (flush) 2-10 mL (BD POSIFLUSH) 2-10 mL INTRAVENOUS DIRECTED PRN And perflutren lipid microspheres 1.1 mg/mL 1.3 mL injection (DEFINITY) 1.3 mL INTRAVENOUS DIRECTED PRN gabapentin 300 mg cap(s) (NEURONTIN) 300 mg ORAL AT BEDTIME benzocaine 1 Lozenge (CHOLORASEPTIC WARMING SORE THROAT) 1 Lozenge MUCOUS MEMBRANE (TOPICAL MOUTH AND THROAT) q 2 H PRN lisinopril 40 mg tab(s) (ZESTRIL) 40 mg ORAL DAILY metoprolol tartrate (short acting) 25 mg tab(s) (LOPRESSOR) 25 mg ORAL q 12 H heparin nomogram - NO INITIAL BOLUS OTHER ONCE (heparin bolus) WARFARIN DOSING PER PHARMACY 1 Each OTHER DAILY - WARFARIN heparin iv infusion 25,000 units in NaCl 0.45% 250 mL STANDARD NOMOGRAM 0-3,000 Units/hr INTRAVENOUS CONTINUOUS And heparin RATE CHANGE bolus 1,000-10,000 Units for subtherapeutic PTTAC results 1,000-10,000 Units INTRAVENOUS PRN Has patient received education: No Signature: Sissy Martinez [facility] Normal [facility] Gas and Carbon monoxide pane l (BldV)on 10-24-2023 BASE DEFICIT, VENOUS >-1 Normal -2-0 [facility] Comment on above: Order Comment: Speci men Type: BLOOD SPECIMEN Ordering Facility: [facility] Address: [address] [place] [address] Performed By: #### P TTAC #### [facility] CLIA [id number] [address] [place] [address] [place] Body temperature 97.16 [degF] Normal [facility] Comment on above: Order Comment: Specjennifer rollins Type: BLOOD SPECIMEN Ordering Facility: [facility] Address: [address] [place] [address] Performed By: #### P TTAC #### [facility] CLIA [id number] [address] [place] [address] [place] Calcium.ionized (Bld) [Mass/Vol] 1.11 mmol/L Normal 1.08-1.30 [facility] Comment on above: Order Comment: Speci men Type: BLOOD SPECIMEN Ordering Facility: [facility] Address: [address] [place] [address] Performed By: #### P TTAC #### [facility] CLIA [id number] [address] [place] [address] [place] Calcium.ionized adjusted to pH 7.4 (BldA) [Moles/Vol] 1.13 mmol/L Normal 1.08-1.30 [facility] Comment on above: Order Comment: Speci men Type: BLOOD SPECIMEN Ordering Facility: [facility] Address: [address] [place] [address] Performed By: #### P TTAC #### [facility] CLIA [id number] [address] [place] [address] [place] Carboxyhemoglobin (BldV) [Mass fraction] 1.8 % Normal 0.0-2.0 [facility] Comment on above: Order Comment: Speci men Type: BLOOD SPECIMEN Ordering Facility: [facility] Address: [address] [place] [address] Result Comment: Carb oxyhemoglobin Reference Range for Smokers: 2.0-8.0% Performed By: #### P TTAC #### [facility] CLIA [id number] [address] [place] [address] [place] Chloride [Moles/Vol] 111 mmol/L High 97-105 [facility] Comment on above: Order Comment: Speci men Type: BLOOD SPECIMEN Ordering Facility: [facility] Address: [address] [place] [address] Performed By: #### P TTAC #### [facility] CLIA [id number] [address] [place] [address] [place] CO2 (BldV) [Partial pressure] 35 mm[Hg] Low 42-55 [facility] Comment on above: Order Comment: Speci men Type: BLOOD SPECIMEN Ordering Facility: [facility] Address: [address] [place] [address] Performed By: #### P TTAC #### [facility] CLIA [id number] [address] [place] [address] [place] CO2 adjusted to patient's actual temperature (BldV) [Partial pressure] Normal [facility] Comment on above: Order Comment: Speci men Type: BLOOD SPECIMEN Ordering Facility: [facility] Address: [address] [place] [address] Performed By: #### P TTAC #### [facility] CLIA [id number] [address] [place] [address] [place] Glucose [Mass/Vol] 116 mg/dL High 60-105 [facility] Comment on above: Order Comment: Speci men Type: BLOOD SPECIMEN Ordering Facility: [facility] Address: [address] [place] [address] Performed By: #### P TTAC #### [facility] CLIA [id number] [address] [place] [address] [place] HCO3 (Bld) [Moles/Vol] 23 mmol/L Low 24-28 [facility] Comment on above: Order Comment: Speci men Type: BLOOD SPECIMEN Ordering Facility: [facility] Address: [address] [place] [address] Performed By: #### P TTAC #### [facility] CLIA [id number] [address] [place] [address] [place] Hematocrit (Bld) [Volume fraction] 46.1 % Normal 39.0-51.0 [facility] Comment on above: Order Comment: Speci men Type: BLOOD SPECIMEN Ordering Facility: [facility] Address: [address] [place] [address] Performed By: #### P TTAC #### [facility] CLIA [id number] [address] [place] [address] [place] Hemoglobin (Bld) [Mass/Vol] 15.1 g/dL Normal 13.0-17.0 [facility] Comment on above: Order Comment: Speci men Type: BLOOD SPECIMEN Ordering Facility: [facility] Address: [address] [place] [address] Performed By: #### P TTAC #### [facility] CLIA [id number] [address] [place] [address] [place] Lactate [Moles/Vol] 1.4 mmol/L Normal 0.5-2.2 [facility] Comment on above: Order Comment: Speci men Type: BLOOD SPECIMEN Ordering Facility: [facility] Address: [address] [place] [address] Performed By: #### P TTAC #### [facility] CLIA [id number] [address] [place] [address] [place] Methemoglobin (Bld) [Mass fraction] 0.4 % Normal 0.0-1.5 [facility] Comment on above: Order Comment: Speci men Type: BLOOD SPECIMEN Ordering Facility: [facility] Address: [address] [place] [address] Performed By: #### P TTAC #### [facility] IA [id number] [address] [place] [address] [place] O2 THERAPY RA=Room Air Normal [facility] Comment on above: Order Comment: Speci men Type: BLOOD SPECIMEN Ordering Facility: [facility] Address: [address] [place] [address] Performed By: #### P TTAC #### [facility] CLIA [id number] [address] [place] [address] [place] Oxygen (BldV) [Partial pressure] 153 mm[Hg] High 35-45 [facility] Comment on above: Order Comment: Speci men Type: BLOOD SPECIMEN Ordering Facility: [facility] Address: [address] [place] [address] Performed By: #### P TTAC #### [facility] CLIA [id number] [address] [place] [address] [place] Oxygen adjusted to patient's actual temperature (BldV) [Partial pressure] Normal [facility] Comment on above: Order Comment: Speci men Type: BLOOD SPECIMEN Ordering Facility: [facility] Address: [address] [place] [address] Performed By: #### P TTAC #### [facility] CLIA [id number] [address] [place] [address] [place] Oxygen saturation in Venous blood 99 % High 60-85 [facility] Comment on above: Order Comment: Speci men Type: BLOOD SPECIMEN Ordering Facility: [facility] Address: [address] [place] [address] Performed By: #### P TTAC #### [facility] CLIA [id number] [address] [place] [address] [place] Oxyhemoglobin (BldV) [Mass fraction] 97 % High 60-85 [facility] Comment on above: Order Comment: Speci men Type: BLOOD SPECIMEN Ordering Facility: [facility] Address: [address] [place] [address] Performed By: #### P TTAC #### [facility] CLIA [id number] [address] [place] [address] [place] pH (BldV) 7.44 [pH] High 7.32-7.42 [facility] Comment on above: Order Comment: Speci men Type: BLOOD SPECIMEN Ordering Facility: [facility] Address: [address] [place] [address] Performed By: #### P TTAC #### [facility] CLIA [id number] [address] [place] [address] [place] pH adjusted to patient's actual temperature (BldV) Normal [facility] Comment on above: Order Comment: Speci men Type: BLOOD SPECIMEN Ordering Facility: [facility] Address: [address] [place] [address] Performed By: #### P TTAC #### [facility] CLIA [id number] [address] [place] [address] [place] Potassium [Moles/Vol] 4.0 mmol/L Normal 3.5-5.0 [facility] Comment on above: Order Comment: Speci men Type: BLOOD SPECIMEN Ordering Facility: [facility] Address: [address] [place] [address] Performed By: #### P TTAC #### [facility] CLIA [id number] [address] [place] [address] [place] Sodium [Moles/Vol] 140 mmol/L Normal 136-144 [facility] Comment on above: Order Comment: Tiffanie rollins Type: BLOOD SPECIMEN Ordering Facility: [facility] Address: [address] [place] [address] Performed By: #### P TTAC #### [facility] CLIA [id number] [address] [place] [id number] [place] Magnesium SerPl-mCncon 10-23 Magnesium [Mass/Vol] 1.9 mg/dL Normal 1.7-2.3 [facility] Comment on above: Order Comment: Tiffanie rollins Type: BLOOD SPECIMEN Ordering Facility: [facility] Address: [address] [place] [address] Performed By: #### P TTAC, 06646-6 #### [facility] CLIA [id number] [address] [place] [address] [place] NURSING PROGon 10-24-2023 NURSING PROG HNO ID: [id number] Author: ANN NGUYEN RN Service: ? Author Type: Registered Nurse Type: Nursing Progress Note Filed: 10/24/2023 17:18 Note Text: Transfer Note: PATIENT NAME: Fran Parekh Patient Location: [place] [id number] Room: [place] [address] Patient transferred out to room/unit PK 2 C 28 in stable condition. Actions taken: Report given/called to CHAD Astudillo at 1710. Patient belongings with patient and patient transferred on telemetry. Normal [facility] PT panel Coag (PPP)on 2023 INR Coag (PPP) [Relative time] 1.0 {INR} Normal 0.9-1.3 [facility] Comment on above: Order Comment: Tiffanie rollins Type: BLOOD SPECIMEN Ordering Facility: [facility] Address: [address] [place] [address] Result Comment: Yvonne min K Antagonist (VKA) Therapeutic Range: INR 2 to 3 (Target INR of 2.5) Note: For patients treated with VKA drugs, such as warfarin, the [employer] 2012 Guideline recommends a therapeutic INR range of 2 to 3 (target INR of 2.5). This recommendation includes high-risk patients with antiphospholipid syndrome with previous arterial or venous thromboembolism, current-generation mechanical or bioprosthetic aortic heart valve replacement. Note: Patients with mechanical aortic valve replacement and additional risk factors for thromboembolic events (atrial fibrillation, previous thromboembolism, LV dysfunction, hypercoagulable conditions) or an older generation mechanical AVR (i.e., ball in-Cage) or any mechanical MVR should have a INR therapeutic range of 2.5 to 3.5 (target INR of 3). Phuong GH, et al. Chest 2012, 141:7S-47S Saray RA, et al. [facility] 2017, 70: 252-289 Performed By: #### P TTA, 55634-2 #### [facility] CLIA [id number] [address] [place] [address] [place] PT Coag (PPP) [Time] 11.3 s Normal 9.7-13.0 [facility] Comment on above: Order Comment: Tiffanie rollins Type: BLOOD SPECIMEN Ordering Facility: [facility] Address: [address] [place] [address] Performed By: #### P TTA, 47831-1 #### [facility] CLIA [id number] [address] [place] [address] [place] PTT, ANTICOAGULANT THERAPYon 10-24-2023 aPTT Coag (PPP) [Time] 30.0 s Normal 23.0-32.4 [facility] Comment on above: Order Comment: Ruthi men Type: VENOUS BLOOD SPECIMEN Ordering Facility: [facility] Address: [address] [place] [address] Performed By: #### 2 4344-4 #### [facility] CLIA [id number] [address] [place] [address] [facility] aPTT Coag (PPP) [Time] 50.7 s High 23.0-32.4 [facility] Comment on above: Order Comment: Ruthi men Type: BLOOD SPECIMEN Ordering Facility: [facility] Address: [address] [place] [id number] Performed By: #### P TTAC, 51205-8 #### [facility] CLIA [id number] [address] [place] [id number] [place] aPTT Coag (PPP) [Time] 55.2 s High 23.0-32.4 [facility] Comment on above: Order Comment: Speci men Type: VENOUS BLOOD SPECIMEN Ordering Facility: [facility] Address: [facility] [place] [address] Performed By: #### 2 4344-4 #### [facility] CLIA [id number] [address] [place] [address] [place] Phosphate SerPl-mCncon 10-23 Phosphate [Mass/Vol] 3.8 mg/dL Normal 2.7-4.8 [facility] Comment on above: Order Comment: Speci men Type: BLOOD SPECIMEN Ordering Facility: [facility] Address: [address] [place], [place] [address] [address] Performed By: #### P TTAC, 31699-1 #### [facility] CLIA [id number] [address] [place] [address] [place] ALLIED HEALTHon 10-23-2023 ALLIED HEALTH HNO ID: [id number] Author: JUAN C ESCOTO Chaplain Service: Spiritual Care Author Type: Jewelry Facer Type: Allied Health Filed: 10/23/2023 14:11 Note Text: SPIRITUALCARE Spiritual Care Visit- Brief Note Name: Fran Parekh Date: October 23, 2023 Notes: While engaging in spiritual care rounds on the [facility] unit, I provided spiritual presence and bucolical support through empathetic care through an offer of prayers at the door. To contact the Spiritual Care Department: Please call [phone] or Page the On-Call Jewelry Facer at pager [phone]. Thank you for the opportunity to be of service. SIGNATURE: Chaplain Alphonse PATIENT NAME: Fran Parekh DATE: October 23, 2023 TIME: 10:00 AM This is an electronically created document. IF PRINTED, PLEASE DO NOT REMOVE FROM THE CHART OR MODIFY PRINTED COPY. [facility] HNO ID: [id number] Author: PATY GUZMAN RDMS Service: Radiology Author Type: Technologist Type: [facility] Filed: 10/23/2023 03:21 Note Text: Radiology Service Progress Note PATIENT NAME: Fran Parekh DATE OF SERVICE: October 23, 2023 TIME: 3:21 AM PATIENT IDENTITY VERIFICATION COMPLETED USING TWO (2) IDENTIFIERS: Name and Date of confirmed by patient verbally and Name and Date of confirmed by identification band. FALL SCREENING: Has the patient had 2 falls in the last year or 1 fall with injury or currently using an Ambulatory Assistive Device (Walker, Cane, Wheelchair, Crutches, etc.)? No PATIENT GENDER DATA: Male PATIENT RELEVANT IMPLANT DATA REVIEWED: Not Applicable PATIENT PRESENTS WITH AN IMPLANTABLE OR ATTACHED LITERACY COACH: No RADIOLOGY DEPARTMENT: Ultrasound PERIPHERAL IV DATA: Not applicable SIGNED BY: PATY GUZMAN RDMS October 23, 2023 3:21 AM [facility] HNO ID: [id number] Author: CARRINGTON LAWS RT(R) Service: Radiology Author Type: Technologist Type: [facility] Filed: 10/23/2023 02:45 Note Text: Radiology Service Progress Note PATIENT NAME: Fran Parekh DATE OF SERVICE: October 23, 2023 TIME: 2:45 AM PATIENT IDENTITY VERIFICATION COMPLETED USING TWO (2) IDENTIFIERS: Name and Date of confirmed by patient verbally and Name and Date of confirmed by identification band. FALL SCREENING: Has the patient had 2 falls in the last year or 1 fall with injury or currently using an Ambulatory Assistive Device (Walker, Cane, Wheelchair, Crutches, etc.)? Inpatient: Screened on floor PATIENT GENDER DATA: Male PATIENT RELEVANT IMPLANT DATA REVIEWED: Not Applicable PATIENT PRESENTS WITH AN IMPLANTABLE OR ATTACHED LITERACY COACH: No RADIOLOGY DEPARTMENT: General X-ray: Exam(s) Completed: Chest X-Ray PERIPHERAL IV DATA: Not applicable SIGNED BY: RT Sindy(R) October 23, 2023 2:45 AM [facility] CBC panel Auto (Bld)on 10-22 Erythrocyte distribution width (RBC) [Ratio] 14.4 % Normal 11.5-15.0 [facility] Comment on above: Order Comment: Speci men Type: BLOOD SPECIMEN Ordering Facility: [facility] Address: [address] [place] [address] Performed By: #### P TTAC #### [facility] CLIA [id number] [address] [place] [address] [facility] Hematocrit (Bld) [Volume fraction] 42.6 % Normal 39.0-51.0 [facility] Comment on above: Order Comment: Speci men Type: BLOOD SPECIMEN Ordering Facility: [facility] Address: [address] [place] [address] Performed By: #### P TTAC #### [facility] CLIA [id number] [address] [place] [address] [place] Hemoglobin (Bld) [Mass/Vol] 14.5 g/dL Normal 13.0-17.0 [facility] Comment on above: Order Comment: Speci men Type: BLOOD SPECIMEN Ordering Facility: [facility] Address: [address] [place] [address] Performed By: #### P TTAC #### [facility] CLIA [id number] [address] [place] [address] MCH (RBC) [Entitic mass] 32.7 pg Normal 26.0-34.0 [facility] Comment on above: Order Comment: Speci men Type: BLOOD SPECIMEN Ordering Facility: [facility] Address: [address] [place] [address] Performed By: #### P TTAC #### [facility] CLIA [id number] [address] [place] [address] [place] MCHC (RBC) [Mass/Vol] 34.0 g/dL Normal 30.5-36.0 [facility] Comment on above: Order Comment: Speci men Type: BLOOD SPECIMEN Ordering Facility: [facility] Address: [address] [place] [address] Performed By: #### P TTAC #### [facility] CLIA [id number] [address] [place] [address] [place] MCV (RBC) [Entitic vol] 96.2 fL Normal 80.0-100.0 [facility] Comment on above: Order Comment: Speci men Type: BLOOD SPECIMEN Ordering Facility: [facility] Address: [address] [place] [address] Performed By: #### P TTAC #### [facility] CLIA [id number] [address] [place] [address] [place] Nucleated RBC (Bld) [#/Vol] 10*3/uL Normal <0.01 [facility] Comment on above: Order Comment: Speci men Type: BLOOD SPECIMEN Ordering Facility: [facility] Address: [address] [place] [address] Performed By: #### P TTAC #### [facility] CLIA [id number] [address] [place] [address] [place] Platelet mean volume (Bld) [Entitic vol] 10.1 fL Normal 9.0-12.7 [facility] Comment on above: Order Comment: Speci men Type: BLOOD SPECIMEN Ordering Facility: [facility] Address: [address] [place] [address] Performed By: #### P TTAC #### [facility] CLIA [id number] [address] [place] [address] [place] Platelets (Bld) [#/Vol] 184 10*3/uL Normal 150-400 [facility] Comment on above: Order Comment: Speci men Type: BLOOD SPECIMEN Ordering Facility: [facility] Address: [address] [place] [address] Performed By: #### P TTAC #### [facility] CLIA [id number] [address] [place] [address] [place] RBC (Bld) [#/Vol] 4.43 10*6/uL Normal 4.20-6.00 [facility] Comment on above: Order Comment: Speci men Type: BLOOD SPECIMEN Ordering Facility: [facility] Address: [address] [place] [address] Performed By: #### P TTAC #### [facility] CLIA [id number] [address] [place] [address] [place] WBC (Bld) [#/Vol] 9.53 10*3/uL Normal 3.70-11.00 [facility] Comment on above: Order Comment: Speci men Type: BLOOD SPECIMEN Ordering Facility: [facility] Address: [address] [place] [address] Performed By: #### P TTAC #### [facility] CLIA [id number] [address] [place] [address] [place] Comp Metab 2000 Pnl SerPlon 10-23-2023 Sodium [Moles/Vol] 143 mmol/L Normal 136-144 [facility] Comment on above: Order Comment: Speci men Type: BLOOD SPECIMEN Ordering Facility: [facility] Address: [address] [place] [address] Performed By: #### 3 3959-8, 3016-3, 29203-6, 09445-1 #### [facility] CLIA [id number] [address] [place] [address] [place] Order Comment: Speci men Type: VENOUS BLOOD SPECIMEN Ordering Facility: [facility] Address: [address] [place] [address] Performed By: #### 2 4344-4 #### [facility] CLIA [id number] [address] [place] [address] [place] Comprehensive metabolic 2000 panelon 10-23-2023 Albumin [Mass/Vol] 3.2 g/dL Low 3.9-4.9 [facility] Comment on above: Order Comment: Speci men Type: BLOOD SPECIMEN Ordering Facility: [facility] Address: [address] [place] [address] Performed By: #### 3 3959-8, 3016-3, 04090-1, 90085-0 #### [facility] CLIA [id number] [address] [place] [address] [place] ALP [Catalytic activity/Vol] 75 U/L Normal 38-113 [facility] Comment on above: Order Comment: Speci men Type: BLOOD SPECIMEN Ordering Facility: [facility] Address: [address] [place] [address], [place] [address] Performed By: #### 3 3959-8, 3016-3, 14844-4, 64848-9 #### [facility] CLIA [id number] [place] [address] [place] ALT [Catalytic activity/Vol] 18 U/L Normal 10-54 [facility] Comment on above: Order Comment: Speci men Type: BLOOD SPECIMEN Ordering Facility: [facility] Address: [address] [place] [address] Performed By: #### 3 3959-8, 3016-3, 62257-5, 49542-7 #### [facility] CLIA [id number] [address] [place] [address] [place] Anion gap [Moles/Vol] 11 mmol/L Normal 8-15 [facility] Comment on above: Order Comment: Speci men Type: BLOOD SPECIMEN Ordering Facility: [facility] Address: [facility] [place] [address] Performed By: #### 3 3959-8, 3016-3, 71728-4, 10311-4 #### [facility] CLIA [id number] [address] [place] [address] [place] AST [Catalytic activity/Vol] 19 U/L Normal 14-40 [facility] Comment on above: Order Comment: Speci men Type: BLOOD SPECIMEN Ordering Facility: [facility] Address: [facility] [place] [address] Performed By: #### 3 3959-8, 3016-3, 59457-3, 39548-4 #### [facility] CLIA [id number] [address] [place], [place] [address] [place] Bilirubin [Mass/Vol] 0.5 mg/dL Normal 0.2-1.3 [facility] Comment on above: Order Comment: Speci men Type: BLOOD SPECIMEN Ordering Facility: [facility] Address: [address] [place] [address] Performed By: #### 3 3959-8, 3016-3, 45154-3, 53327-3 #### [facility] CLIA [id number] [address] [place] [address] [place] Calcium [Mass/Vol] 8.5 mg/dL Normal 8.5-10.2 [facility] Comment on above: Order Comment: Speci men Type: BLOOD SPECIMEN Ordering Facility: [facility] Address: [address] [place] [address] Performed By: #### 3 3959-8, 3016-3, 18146-6, 82176-2 #### [facility] CLIA [id number] [address] [place] [address] [place] Chloride [Moles/Vol] 108 mmol/L High 98-107 [facility] Comment on above: Order Comment: Speci men Type: BLOOD SPECIMEN Ordering Facility: [facility] Address: [address] [place] [address] Performed By: #### 3 3959-8, 3016-3, 38545-1, 60134-8 #### [facility] CLIA [id number] [address] [place] [address] [place] CO2 [Moles/Vol] 24 mmol/L Normal 22-30 [facility] Comment on above: Order Comment: Speci men Type: BLOOD SPECIMEN Ordering Facility: [facility] Address: [address] [place] [address] Performed By: #### 3 3959-8, 3016-3, 16954-0, 23929-7 #### [facility] CLIA [id number] [address] [place] [address] [place] Creatinine [Mass/Vol] 1.51 mg/dL High 0.73-1.22 [facility] Comment on above: Order Comment: Speci men Type: BLOOD SPECIMEN Ordering Facility: [facility] Address: [address] [place] [address] Performed By: #### 3 3959-8, 3016-3, 37542-4, 26240-9 #### [facility] CLIA [id number] [address] [place] [address] [place] Creatinine and Glomerular filtration rate.predicted panel (S/P/Bld) 47 mL/min/1.73m??? Low >=60 [facility] Comment on above: Order Comment: Tiffanie rollins Type: BLOOD SPECIMEN Ordering Facility: [facility] Address: [address] [place] [address] Result Comment: Danika mated Glomerular Filtration Rate (eGFR) is calculated using the 2020 CKD-EPI creatinine equation. This equation utilizes serum creatinine, sex, and age as parameters. The creatinine assay has traceable calibration to isotope dilution-mass spectrometry. Refer to KDIGO guidelines for clinical interpretation. In patients with unstable renal function, e.g. those with acute kidney injury, the eGFR may not accurately reflect actual GFR. Performed By: #### 3 3959-8, 3016-3, 17874-4, 81158-0 #### [facility] CLIA [id number] [place] [address] [place] Glucose [Mass/Vol] 137 mg/dL High 74-99 [facility] Comment on above: Order Comment: Tiffanie rollins Type: BLOOD SPECIMEN Ordering Facility: [facility] Address: [address] [place] [address] Result Comment: The [place] [employer] (ADA) provides guidance for cutoff values for fasting glucose and random glucose. The ADA defines fasting as no caloric intake for at least 8 hours. Fasting plasma glucose results between 100 to 125 mg/dL indicate increased risk for diabetes (prediabetes). Fasting plasma glucose results greater than or equal to 126 mg/dL meet the criteria for diagnosis of diabetes. In the absence of unequivocal hyperglycemia, results should be confirmed by repeat testing. In a patient with classic symptoms of hyperglycemia or hyperglycemic crisis, random plasma glucose results greater than or equal to 200 mg/dL meet the criteria for diagnosis of diabetes. Reference: Standards of Medical Care in Diabetes 2016, [place] [employer]. Diabetes Care. 2016.39(Suppl 1). Performed By: #### 3 3959-8, 3016-3, 39555-2, 96210-3 #### [facility] CLIA [id number] [place] [address] [place] Potassium [Moles/Vol] 4.2 mmol/L Normal 3.7-5.1 [facility] Comment on above: Order Comment: Speci men Type: BLOOD SPECIMEN Ordering Facility: [facility] Address: [address] [place] [address] Performed By: #### 3 3959-8, 3016-3, 61523-9, 79797-7 #### [facility] CLIA [id number] [address] [place] [address] [place] Protein [Mass/Vol] 5.9 g/dL Low 6.3-8.0 [facility] Comment on above: Order Comment: Speci men Type: BLOOD SPECIMEN Ordering Facility: [facility] Address: [address] [place] [address] Performed By: #### 3 3959-8, 3016-3, 90254-3, 65119-3 #### [facility] CLIA [id number] [address] [place] [address] [place] Urea nitrogen [Mass/Vol] 24 mg/dL Normal 01-22 [facility] Comment on above: Order Comment: Speci men Type: BLOOD SPECIMEN Ordering Facility: [facility] Address: [address] [place] [address] Performed By: #### 3 3959-8, 3016-3, 49265-8, 12455-3 #### [facility] CLIA [id number] [address] [place] [address] [place] ECHOon 10-23-2023 Echocardiography Echocardiography Rep ort: Transthoracic Echo [facility] Date of service: 10/23/2023 10:14:42 AM Ordering physician: DONN RODRIGUEZ Indication: Acute pulmonary embolism to guide therapy Technologist: Judith Tarango [facility] Interpreting physician: Brian Hall MD PATIENT: Name: MR. FRAN PAREKH : 1945 Age: 78 years Gender: M History of hypertension, dyslipidemia and chronic kidney disease. Primary rhythm: sinus. Height: 182.90 cm BSA: 2.61 m Weight: 133.70 kg BMI: 40.0 kg/m Heart rate 58 bpm Blood pressure 106/59 mmHg Technically difficult exam due to body habitus. Color Doppler was utilized to interrogate the cardiac valves assessed and spectral Doppler was utilized to determine the flow velocities and pressure gradients reported in this exam. MEASUREMENTS: Value Indexed Normal Max aortic dimension 3.4 cm Ao < 3.8 LV ID (diastole) 4.3 cm (2D) 1.65 cm/m LV ID (systole) 2.7 cm (2D) 1.03 cm/m IVS, leaflet tips 1.5 cm (2D) Posterior wall thickness 1.0 cm (2D) Left ventricular mass 197 g (2D) 76 g/m LV stroke volume 52 ml (2D biplane) LV end diastolic volume 91 ml (2D biplane) 34.9 ml/m 34<=EDVi<75 LV end systolic volume 39 ml (2D biplane) 15.1 ml/m Ejection Fraction 57 % (2D biplane) EF > 52 FINDINGS: LEFT VENTRICLE The left ventricle is normal in size. There is moderate septal left ventricular hypertrophy. Left ventricular systolic function is normal. Grade I left ventricular diastolic dysfunction. Mitral annular lateral E/e': 8.4. Mitral annular septal E/e': 8.4. Wall Motion: All scored segments are normal. RIGHT VENTRICLE The right ventricle is mildly dilated. Right ventricular systolic function is moderately decreased. RV systolic tissue Doppler velocity is 12.0 cm/s. Tricuspid annular displacement is 2.4 cm. Estimated right ventricular systolic pressure is 86 mmHg consistent with severe pulmonary hypertension. Estimated right atrial pressure is 15 mmHg based on IVC assessment. LEFT ATRIUM The left atrial cavity is grossly normal in size. Unable to reliably measure LA volume due to technical limitations. RIGHT ATRIUM The right atrial cavity is mildly dilated. Inferior Vena Cava: The inferior vena cava appears dilated measuring 2.7 cm. The vessel decreases less than 50 percent with inspiration. MITRAL VALVE There is trace mitral valve regurgitation. There is no thickening. The pressure half time is 68 msec. The peak mitral E/A ratio is 1.14. The average mitral E/e' ratio is 8.4. The mitral flow deceleration time is 233 msec. TRICUSPID VALVE There is mild (1+ - 2+) tricuspid valve regurgitation. There is no thickening. AORTIC VALVE The aortic valve was not seen or not interrogated. There is no aortic valve stenosis. There is no aortic valve regurgitation. There is no thickening. PULMONIC VALVE The pulmonic valve was not seen or not interrogated. There is trace pulmonic valve regurgitation. AORTA The visualized aorta is normal in size. Measurements - Mid ascending aorta 3.4 cm. PULMONARY ARTERIES The pulmonary arteries are unseen or not interrogated. INTERATRIAL SEPTUM The interatrial septum is unseen or not interrogated. INTERVENTRICULAR SEPTUM There is systolic and diastolic flattening of the interventricular septum consistent with RV pressure and volume overload. PERICARDIUM There is no pericardial effusion. There is an epicardial fat pad. CONCLUSIONS: - Technically difficult exam due to body habitus. - Exam indication: Acute pulmonary embolism to guide therapy - The left ventricle is normal in size. LV end-disatolic diameter 4.31cm. There is moderate septal left ventricular hypertrophy. Left ventricular systolic function is normal. EF = 57 5% (2D biplane) Grade I left ventricular diastolic dysfunction. - The right ventricle is mildly dilated. Right ventricular radial systolic function is moderately decreased with free wall severe hypokinesis and mild apical preservation (Cook's Signs). RV end-disatolic basal diameter 4.4cm. RV/LV ratio: 1.03. FAC 23%, TAPSE 2.4cm. - The right atrial cavity is mildly dilated. RA KARYNA 19.9cm2. - Mild (1-2+) tricuspid regurgitation. - Estimated right ventricular systolic pressure is 86 mmHg consistent with severe pulmonary hypertension. Estimated right atrial pressure is 15 mmHg based on IVC assessment. - IVS septal flattening. - Exam was compared with the prior echocardiographic exam performed on 11/07/2022 report comparison only new RV; PA pressure changes above. * * * Final (Updated) * * * [employer] : [id number] Normal [facility] FLUABV+SARS-CoV-2+RSV Pnl Re sp DANNIELLE+probeon 10-23-2023 FLUABV+SARS-CoV-2+RSV Pnl Resp DANNIELLE+probe COVID 19 RESULT: Not detected The method used is RT-PCR or an equivalent NAAT method. Reference Range(the expected result in uninfected individuals): Not detected INFLUENZA A PCR: Not detected INFLUENZA B PCR: Not detected RSV PCR: Not detected Normal [facility] Comment on above: Performed By: #### 9 5941-1 ####[facility] [id number] [place] [address] [place] Fibrinogen PPP-mCncon 2023 Fibrinogen Coag (PPP) [Mass/Vol] 327 mg/dL Normal 200-400 [facility] Comment on above: Order Comment: Speci men Type: BLOOD SPECIMENOrdering Facility: [facility] Address: [address] [place] [address] Performed By: #### P TTAC, 3255-7 ####[facility] [id number] [address] [place] Gas and Carbon monoxide pane l (BldV)on 10-23-2023 Base excess Calc (BldV) [Moles/Vol] 0 mmol/L Normal 0-2 [facility] Comment on above: Order Comment: Speci men Type: VENOUS BLOOD SPECIMEN Ordering Facility: [facility] Address: [address] [place] [address] Performed By: #### 2 4344-4 #### [facility] CLIA [id number] [address] [place] [address] [place] Body temperature 98.06 [degF] Normal [facility] Comment on above: Order Comment: Speci men Type: VENOUS BLOOD SPECIMEN Ordering Facility: [facility] Address: [address] [place] [address] Performed By: #### 2 4344-4 #### [facility] CLIA [id number] [address] [place] [address] [place] Calcium.ionized (Bld) [Mass/Vol] 1.05 mmol/L Low 1.08-1.30 [facility] Comment on above: Order Comment: Speci men Type: VENOUS BLOOD SPECIMEN Ordering Facility: [facility] Address: [address] [place] [address] Performed By: #### 2 4344-4 #### [facility] CLIA [id number] [address] [place] [address] [place] Calcium.ionized adjusted to pH 7.4 (BldA) [Moles/Vol] 1.09 mmol/L Normal 1.08-1.30 [facility] Comment on above: Order Comment: Speci men Type: VENOUS BLOOD SPECIMEN Ordering Facility: [facility] Address: [address] [place] [address] Performed By: #### 2 4344-4 #### [facility] CLIA [id number] [address] [place] [address] [place] Carboxyhemoglobin (BldV) [Mass fraction] 2.4 % High 0.0-2.0 [facility] Comment on above: Order Comment: Speci men Type: VENOUS BLOOD SPECIMEN Ordering Facility: [facility] Address: [address] [place] [address] Result Comment: Carb oxyhemoglobin Reference Range for Smokers: 2.0-8.0% Performed By: #### 2 4344-4 #### [facility] CLIA [id number] [address] [place] [address] [place] Chloride [Moles/Vol] 114 mmol/L High 97-105 [facility] Comment on above: Order Comment: Speci men Type: VENOUS BLOOD SPECIMEN Ordering Facility: [facility] Address: [address] [place] [address] Performed By: #### 2 4344-4 #### [facility] CLIA [id number] [address] [place] [address] [place] CO2 (BldV) [Partial pressure] 32 mm[Hg] Low 42-55 [facility] Comment on above: Order Comment: Speci men Type: VENOUS BLOOD SPECIMEN Ordering Facility: [facility] Address: [address] [place] [address] Performed By: #### 2 4344-4 #### [facility] CLIA [id number] [address] [place] [address] [place] CO2 adjusted to patient's actual temperature (BldV) [Partial pressure] Normal [facility] Comment on above: Order Comment: Speci men Type: VENOUS BLOOD SPECIMEN Ordering Facility: [facility] Address: [address] [place] [address] Performed By: #### 2 4344-4 #### [facility] CLIA [id number] [address] [place] [address] [place] Glucose [Mass/Vol] 125 mg/dL High 60-105 [facility] Comment on above: Order Comment: Speci men Type: VENOUS BLOOD SPECIMEN Ordering Facility: [facility] Address: [address] [place] [address] Performed By: #### 2 4344-4 #### [facility] CLIA [id number] [address] [place] [address] [place] HCO3 (Bld) [Moles/Vol] 23 mmol/L Low 24-28 [facility] Comment on above: Order Comment: Speci men Type: VENOUS BLOOD SPECIMEN Ordering Facility: [facility] Address: [address] [place] [address] Performed By: #### 2 4344-4 #### [facility] CLIA [id number] [address] [place] [address] [place] Hematocrit (Bld) [Volume fraction] 46.3 % Normal 39.0-51.0 [facility] Comment on above: Order Comment: Speci men Type: VENOUS BLOOD SPECIMEN Ordering Facility: [facility] Address: [address] [place] [address] Performed By: #### 2 4344-4 #### [facility] CLIA [id number] [address] [place] [address] [place] Hemoglobin (Bld) [Mass/Vol] 15.1 g/dL Normal 13.0-17.0 [facility] Comment on above: Order Comment: Speci men Type: VENOUS BLOOD SPECIMEN Ordering Facility: [facility] Address: [address] [place] [address] Performed By: #### 2 4344-4 #### [facility] CLIA [id number] [address] [place] [address] [place] Lactate [Moles/Vol] 2.1 mmol/L Normal 0.5-2.2 [facility] Comment on above: Order Comment: Speci men Type: VENOUS BLOOD SPECIMEN Ordering Facility: [facility] Address: [address] [place] [address] Performed By: #### 2 4344-4 #### [facility] CLIA [id number] [address] [place] [address] [place] Methemoglobin (Bld) [Mass fraction] 0.8 % Normal 0.0-1.5 [facility] Comment on above: Order Comment: Speci men Type: VENOUS BLOOD SPECIMEN Ordering Facility: [facility] Address: [address] [place] [address] Performed By: #### 2 4344-4 #### [facility] CLIA [id number] [address] [place] [address] [place] O2 THERAPY RA=Room Air Normal [facility] Comment on above: Order Comment: Speci men Type: VENOUS BLOOD SPECIMEN Ordering Facility: [facility] Address: [address] [place] [address] Performed By: #### 2 4344-4 #### [facility] CLIA [id number] [address] [place] [address] [place] Oxygen (BldV) [Partial pressure] 70 mm[Hg] High 35-45 [facility] Comment on above: Order Comment: Speci men Type: VENOUS BLOOD SPECIMEN Ordering Facility: [facility] Address: [address] [place] [address] Performed By: #### 2 4344-4 #### [facility] CLIA [id number] [address] [place] [address] [place] Oxygen adjusted to patient's actual temperature (BldV) [Partial pressure] Normal [facility] Comment on above: Order Comment: Speci men Type: VENOUS BLOOD SPECIMEN Ordering Facility: [facility] Address: [address] [place] [address] Performed By: #### 2 4344-4 #### [facility] CLIA [id number] [address] [place] [address] [place] Oxygen saturation in Venous blood 94 % High 60-85 [facility] Comment on above: Order Comment: Speci men Type: VENOUS BLOOD SPECIMEN Ordering Facility: [facility] Address: [address] [place] [address] Performed By: #### 2 4344-4 #### [facility] CLIA [id number] [address] [place] [address] [place] Oxyhemoglobin (BldV) [Mass fraction] 91 % High 60-85 [facility] Comment on above: Order Comment: Speci men Type: VENOUS BLOOD SPECIMEN Ordering Facility: [facility] Address: [address] [place] [address] Performed By: #### 2 4344-4 #### [facility] CLIA [id number] [address] [place] [address] [place] pH (BldV) 7.47 [pH] High 7.32-7.42 [facility] Comment on above: Order Comment: Speci men Type: VENOUS BLOOD SPECIMEN Ordering Facility: [facility] Address: [address] [place] [address] Performed By: #### 2 4344-4 #### [facility] CLIA [id number] [address] [place] [address] [place] pH adjusted to patient's actual temperature (BldV) Normal [facility] Comment on above: Order Comment: Speci men Type: VENOUS BLOOD SPECIMEN Ordering Facility: [facility] Address: [address] [place] [address] Performed By: #### 2 4344-4 #### [facility] CLIA [id number] [address] [place] [address] [place] Potassium [Moles/Vol] 3.8 mmol/L Normal 3.5-5.0 [facility] Comment on above: Order Comment: Speci men Type: VENOUS BLOOD SPECIMEN Ordering Facility: [facility] Address: [address] [place] [address] Performed By: #### 2 4344-4 #### [facility] CLIA [id number] [address] [place] [address] [place] Sodium [Moles/Vol] 140 mmol/L Normal 136-144 [facility] Comment on above: Order Comment: Speci men Type: VENOUS BLOOD SPECIMEN Ordering Facility: [facility] Address: [address] [place] [address] Performed By: #### 2 4344-4 #### [facility] CLIA [id number] [address] [place] [address] [place] Base excess Calc (BldV) [Moles/Vol] 0 mmol/L Normal 0-2 [facility] Comment on above: Order Comment: Speci men Type: VENOUS BLOOD SPECIMEN Ordering Facility: [facility] Address: [address] [place] [address] Performed By: #### 2 4344-4 #### [facility] CLIA [id number] [address] [place] [address] [place] Body temperature 98.06 [degF] Normal [facility] Comment on above: Order Comment: Speci men Type: VENOUS BLOOD SPECIMEN Ordering Facility: [facility] Address: [address] [place] [address] Performed By: #### 2 4344-4 #### [facility] CLIA [id number] [address] [place] [address] [place] Calcium.ionized (Bld) [Mass/Vol] 1.14 mmol/L Normal 1.08-1.30 [facility] Comment on above: Order Comment: Speci men Type: VENOUS BLOOD SPECIMEN Ordering Facility: [facility] Address: [address] [place] [address] Performed By: #### 2 4344-4 #### [facility] CLIA [id number] [address] [place] [address] [place] Calcium.ionized adjusted to pH 7.4 (BldA) [Moles/Vol] 1.11 mmol/L Normal 1.08-1.30 [facility] Comment on above: Order Comment: Speci men Type: VENOUS BLOOD SPECIMEN Ordering Facility: [facility] Address: [address] [place] [address] Performed By: #### 2 4344-4 #### [facility] CLIA [id number] [address] [place] [address] [place] Carboxyhemoglobin (BldV) [Mass fraction] 2.0 % Normal 0.0-2.0 [facility] Comment on above: Order Comment: Speci men Type: VENOUS BLOOD SPECIMEN Ordering Facility: [facility] Address: [address] [place] [address] Result Comment: Carb oxyhemoglobin Reference Range for Smokers: 2.0-8.0% Performed By: #### 2 4344-4 #### [facility] CLIA [id number] [place] [address] [place] Chloride [Moles/Vol] 111 mmol/L High 97-105 [facility] Comment on above: Order Comment: Speci men Type: VENOUS BLOOD SPECIMEN Ordering Facility: [facility] Address: [address] [place] [address] Performed By: #### 2 4344-4 #### [facility] CLIA [id number] [address] [place] [address] [place] CO2 (BldV) [Partial pressure] 48 mm[Hg] Normal 42-55 [facility] Comment on above: Order Comment: Speci men Type: VENOUS BLOOD SPECIMEN Ordering Facility: [facility] Address: [address] [place] [address] Performed By: #### 2 4344-4 #### [facility] CLIA [id number] [address] [place] [address] [place] CO2 adjusted to patient's actual temperature (BldV) [Partial pressure] Normal [facility] Comment on above: Order Comment: Speci men Type: VENOUS BLOOD SPECIMEN Ordering Facility: [facility] Address: [address] [place] [address] Performed By: #### 2 4344-4 #### [facility] CLIA [id number] [address] [place] [address] [place] Glucose [Mass/Vol] 145 mg/dL High 60-105 [facility] Comment on above: Order Comment: Speci men Type: VENOUS BLOOD SPECIMEN Ordering Facility: [facility] Address: [address] [place] [address] Performed By: #### 2 4344-4 #### [facility] CLIA [id number] [address] [place] [address] [place] HCO3 (Bld) [Moles/Vol] 26 mmol/L Normal 24-28 [facility] Comment on above: Order Comment: Speci men Type: VENOUS BLOOD SPECIMEN Ordering Facility: [facility] Address: [address] [place] [address] Performed By: #### 2 4344-4 #### [facility] CLIA [id number] [address] [place] [address] [place] Hematocrit (Bld) [Volume fraction] 44.8 % Normal 39.0-51.0 [facility] Comment on above: Order Comment: Speci men Type: VENOUS BLOOD SPECIMEN Ordering Facility: [facility] Address: [address] [place] [address] Performed By: #### 2 4344-4 #### [facility] CLIA [id number] [address] [place] [address] [place] Hemoglobin (Bld) [Mass/Vol] 14.6 g/dL Normal 13.0-17.0 [facility] Comment on above: Order Comment: Speci men Type: VENOUS BLOOD SPECIMEN Ordering Facility: [facility] Address: [address] [place] [address] Performed By: #### 2 4344-4 #### [facility] CLIA [id number] [address] [place] [address] [place] Lactate [Moles/Vol] 2.7 mmol/L High 0.5-2.2 [facility] Comment on above: Order Comment: Speci men Type: VENOUS BLOOD SPECIMEN Ordering Facility: [facility] Address: [address] [place] [address] Performed By: #### 2 4344-4 #### [facility] CLIA [id number] [address] [place] [address] [place] LITERS 2 Liters/min Normal [facility] Comment on above: Order Comment: Speci men Type: VENOUS BLOOD SPECIMEN Ordering Facility: [facility] Address: [address] [place] [address] Performed By: #### 2 4344-4 #### [facility] CLIA [id number] [address] [place] [address] [place] Methemoglobin (Bld) [Mass fraction] 0.5 % Normal 0.0-1.5 [facility] Comment on above: Order Comment: Speci men Type: VENOUS BLOOD SPECIMEN Ordering Facility: [facility] Address: [address] [place] [address] Performed By: #### 2 4344-4 #### [facility] CLIA [id number] [address] [place] [address] [place] O2 THERAPY NC = Nasal Cannula Normal [facility] Comment on above: Order Comment: Speci men Type: VENOUS BLOOD SPECIMEN Ordering Facility: [facility] Address: [address] [place] [address] Performed By: #### 2 4344-4 #### [facility] CLIA [id number] [address] [place] [address] [place] Oxygen (BldV) [Partial pressure] 51 mm[Hg] High 35-45 [facility] Comment on above: Order Comment: Speci men Type: VENOUS BLOOD SPECIMEN Ordering Facility: [facility] Address: [address] [place] [address] Performed By: #### 2 4344-4 #### [facility] CLIA [id number] [address] [place] [address] [place] Oxygen adjusted to patient's actual temperature (BldV) [Partial pressure] Normal [facility] Comment on above: Order Comment: Speci men Type: VENOUS BLOOD SPECIMEN Ordering Facility: [facility] Address: [address] [place] [address] Performed By: #### 2 4344-4 #### [facility] CLIA [id number] [address] [place] [address] [place] Oxygen saturation in Venous blood 82 % Normal 60-85 [facility] Comment on above: Order Comment: Speci men Type: VENOUS BLOOD SPECIMEN Ordering Facility: [facility] Address: [address] [place] [address] Performed By: #### 2 4344-4 #### [facility] CLIA [id number] [address] [place] [address] [place] Oxyhemoglobin (BldV) [Mass fraction] 80 % Normal 60-85 [facility] Comment on above: Order Comment: Speci men Type: VENOUS BLOOD SPECIMEN Ordering Facility: [facility] Address: [address] [place] [address] Performed By: #### 2 4344-4 #### [facility] CLIA [id number] [address] [place] [address] [place] pH (BldV) 7.35 [pH] Normal 7.32-7.42 [facility] Comment on above: Order Comment: Speci men Type: VENOUS BLOOD SPECIMEN Ordering Facility: [facility] Address: [address] [place] [address] Performed By: #### 2 4344-4 #### [facility] CLIA [id number] [address] [place] [address] [place] pH adjusted to patient's actual temperature (BldV) Normal [facility] Comment on above: Order Comment: Speci men Type: VENOUS BLOOD SPECIMEN Ordering Facility: [facility] Address: [address] [place] [address] Performed By: #### 2 4344-4 #### [facility] CLIA [id number] [address] [place] [address] [place] Potassium [Moles/Vol] 4.0 mmol/L Normal 3.5-5.0 [facility] Comment on above: Order Comment: Speci men Type: VENOUS BLOOD SPECIMEN Ordering Facility: [facility] Address: [address] [place] [address] Performed By: #### 2 4344-4 #### [facility] CLIA [id number] [address] [place] [address] [place] HIGH SENSITIVITY TROPONIN To n 10-23-2023 Troponin T.cardiac High sensitivity method [Mass/Vol] 43 ng/L High <12 [facility] Comment on above: Order Comment: Speci men Type: BLOOD SPECIMEN Ordering Facility: [facility] Address: [address] [place] [address] Result Comment: When assessing risk for acute coronary syndromes: In patients undergoing blood draw greater than or equal to 2 hours from symptom onset, with history of very low to moderate risk and non-ischemic ECG, an initial hs-Troponin T less than 12 ng/L AND a 1 hour delta hs-Troponin T less than 3 ng/L should be considered very low risk for 30 day MACE. Performed By: #### P TTAC #### [facility] CLIA [id number] OF [place] Troponin T.cardiac High sensitivity method [Mass/Vol] 52 ng/L High <12 [facility] Comment on above: Order Comment: Speci men Type: BLOOD SPECIMEN Ordering Facility: [facility] Address: [address] [place] [address] [address] Result Comment: When assessing risk for acute coronary syndromes: In patients undergoing blood draw greater than or equal to 2 hours from symptom onset, with history of very low to moderate risk and non-ischemic ECG, an initial hs-Troponin T less than 12 ng/L AND a 1 hour delta hs-Troponin T less than 3 ng/L should be considered very low risk for 30 day MACE. Performed By: #### P TTA, 70535-8 #### [facility] CLIA [id number] [place] [id number] [place] HISTORY PHYSICALon HISTORY PHYSICAL HNO ID: [id number] Author: DONN RODRIGUEZ MD Service: Critical Care Author Type: Physician Type: H&P Filed: 10/23/2023 06:48 Note Text: [facility] SERVICE DATE: 10/23/2023 SERVICE TIME: 224 Admission Date: 10/23/2023 Subjective HPI: This is a 78 year old with acute saddle pulmonary embolus. His past medical history significant for angina, hypertension, hyperlipidemia, hypothyroid, obstructive sleep apnea, prediabetes, CKD. He presented to [facility] ED reporting dizziness and lightheadedness. He did report exertional shortness of breath for last 2 to 3 weeks. It started yesterday. His O2 sat was found to be 90% on room air. A CTA of the chest was performed that showed a saddle embolus with thrombus in the right main pulmonary artery occupying 50% of the lumen of the vessel. Thrombus on the left occupying 20 to 30% of the lumen of the vessel. He was placed on oxygen and started on heparin drip. He was transferred to [facility] ICU. He is hemodynamically stable upon arrival. He is noted to have bilateral peripheral edema with erythema of the right anterior landry. Also has mild JVD. Dried and crusting shingles lesions on right waist. PAST MEDICAL HISTORY Diagnosis Date Angina at [...] of skin of nose Dr. Chowdary in [place] Stage 3a chronic kidney disease (HCC) Venous insufficiency PAST SURGICAL HISTORY Procedure Laterality Date ARTHRP ACETBLR/PROX FEM PROSTC AGRFT/ALGRFT Right 06/03/2019 Hip replacement, total COLONOSCOPY FLX DX W/COLLJ SPEC WHEN PFRMD 04/21/11 Repeat 10 [id number] LASER GREENLIGHT prostate, [place] NEUROPLASTY AND/TRANSPOS MEDIAN NRV CARPAL TUNNE Left 01/17/2020 Left carpal tunnel release NEUROPLASTY AND/TRANSPOS MEDIAN NRV CARPAL TUNNE Right 03/04/2020 Right carpal tunnel release RPR UMBILICAL HRNA 5 YRS/> REDUCIBLE TONSILLECTOMY PRIMARY/SECONDARY Tonsillectomy FAMILY HISTORY Problem Relation Age of [...] Topics Alcohol use: No Drug use: No Outpatient medications perflutren lipid microspheres 1.3 mL in NaCl (PF) 0.9% 10 mL injection (DEFINITY), , INTRAVENOUS, DIRECTED PRN, Podlogar, Marilia, RECORD TESTER.SUPERVISOR REMELT sodium chloride 0.9 % (flush) 10 mL (BD POSIFLUSH), 10 mL, INTRAVENOUS, DIRECTED PRN, Podlogar, Marilia, RECORD TESTER.SUPERVISOR REMELT metoprolol succinate ER (TOPROL XL) 50 mg 24 hr tablet, Take 1 tablet by mouth once daily., Disp: 30 tablet, Rfl: 2 lisinopril (ZESTRIL) 40 mg tablet, Take 1 tablet by mouth once daily., Disp: 90 tablet, Rfl: 1 hydroCHLOROthiazide 25 mg tablet, Take 1 tablet by mouth once daily., Disp: 90 tablet, Rfl: 1 gabapentin (NEURONTIN) 300 mg capsule, Take 300 mg by mouth daily at bedtime., Disp: , Rfl: atorvastatin (LIPITOR) 40 mg tablet, Take 1 tablet by mouth once daily., Disp: 90 tablet, Rfl: 3 levothyroxine (SYNTHROID) 125 mcg tablet, TAKE 1 TABLET BY MOUTH EVERY DAY ON AN EMPTY STOMACH FOR THYROID, Disp: 90 tablet, Rfl: 3 naproxen sodium (ALEVE) 220 mg tablet, Take 220 mg by mouth twice daily with meals., Disp: , Rfl: amoxicillin (POLYMOX, AMOXIL) 500 mg capsule, Take four capsules one hour before dental procedure., Disp: 4 capsule, Rfl: 3 CPAP, AutoPAP [id number]. Mask per preference, tubing, filters, humidity. [employer]lies. Dx: G47.33. Fax 30 day compliance report to [phone]., Disp: 1 Each, Rfl: 999 CPAP, Please provide mask fitting. Pt with subjective and some degree objective leaks. Prefers nasal type mask. Thank you. DME = [employer], Disp: 1 Each, Rfl: 99 acetaminophen 650 mg CR tablet, Take 650 mg by mouth as needed., Disp: , Rfl: aspirin, enteric coated (ASPIRIN, ENTERIC COATED) 81 mg EC tablet, Take 81 mg by mouth once daily., Di (more content not included)... Normal [facility] HbA1c (Bld)on 10-23-2023 Average glucose Estimated from glycated hemoglobin (Bld) [Mass/Vol] 128 mg/dL Normal [facility] Comment on above: Order Comment: Tiffanie rollins Type: BLOOD SPECIMENOrdering Facility: [facility] Address: [address] [place] [address] Result Comment: eAG: (Estimated average glucose) is a calculated value from HgbA1c and is exhibit display representative of the average blood glucose level in the last 2-3 month period. Performed By: #### 5 5454-3 ####[facility] [id number] [place] [address] [place] HbA1c (Bld) [Mass fraction] 6.1 % High 4.3-5.6 [facility] Comment on above: Order Comment: Tiffanie rollins Type: BLOOD SPECIMENOrdering Facility: [facility] Address: [address] [place] [address] Result Comment: [place] Diabetes Association guidelines indicate that patients with HgbA1c in the range 5.7-6.4% are at increased risk for development of diabetes, and intervention by lifestyle modification may be beneficial. HgbA1c greater or equal to 6.5% is considered diagnostic of diabetes. Performed By: #### 5 5454-3 ####[facility] [id number] [place] [address] [place] Magnesium SerPl-mCncon 10-22 Magnesium [Mass/Vol] 1.8 mg/dL Normal 1.7-2.3 [facility] Comment on above: Order Comment: Tiffanie rollins Type: BLOOD SPECIMEN Ordering Facility: [facility] Address: [address] [place] [address] Performed By: #### 3 3959-8, 3016-3, 35132-8, 79368-8 #### [facility] CLIA [id number] [place] [address] [place] NT-proBNP SerPl-mCncon 10-22 Natriuretic peptide.B prohormone N-Terminal [Mass/Vol] 2953 pg/mL High <450 [facility] Comment on above: Order Comment: Tiffanie rollins Type: BLOOD SPECIMEN Ordering Facility: [facility] Address: [address] [place] [address] Performed By: #### P [facility], 78589-3 #### [facility] CLIA [id number] [address] [place] [address] [place] PT panel Coag (PPP)on 2023 INR Coag (PPP) [Relative time] 1.0 {INR} Normal 0.9-1.3 [facility] Comment on above: Order Comment: Tiffanie rollins Type: VENOUS BLOOD SPECIMEN Ordering Facility: [facility] Address: [address] [place] [address] Result Comment: Yvonne min K Antagonist (VKA) Therapeutic Range: INR 2 to 3 (Target INR of 2.5) Note: For patients treated with VKA drugs, such as warfarin, the [place] [employer] 2012 Guideline recommends a therapeutic INR range of 2 to 3 (target INR of 2.5). This recommendation includes high-risk patients with antiphospholipid syndrome with previous arterial or venous thromboembolism, current-generation mechanical or bioprosthetic aortic heart valve replacement. Note: Patients with mechanical aortic valve replacement and additional risk factors for thromboembolic events (atrial fibrillation, previous thromboembolism, LV dysfunction, hypercoagulable conditions) or an older generation mechanical AVR (i.e., ball in-Cage) or any mechanical MVR should have a INR therapeutic range of 2.5 to 3.5 (target INR of 3). Phuong BURGOS, et al. Chest 2012, 141:7S-47S Saray RA, et al. [facility] 2017, 70: 252-289 Performed By: #### 2 4344-4 #### [facility] CLIA [id number] [address] [place], [place] [address] [place] PT Coag (PPP) [Time] 10.8 s Normal 9.7-13.0 [facility] Comment on above: Order Comment: Tiffanie rollins Type: VENOUS BLOOD SPECIMEN Ordering Facility: [facility] Address: [address] [place] [address] Performed By: #### 2 4344-4 #### [facility] CLIA [id number] [place] [address] [place] PTT, ANTICOAGULANT THERAPYon 10-23-2023 aPTT Coag (PPP) [Time] 108.8 s High 23.0-32.4 [facility] Comment on above: Order Comment: Speci men Type: BLOOD SPECIMENOrdering Facility: [facility] Address: [address] [place] [address] Performed By: #### P TTAC ####[facility] [id number] [place] [address] [place] aPTT Coag (PPP) [Time] 100.7 s High 23.0-32.4 [facility] Comment on above: Order Comment: Speci men Type: BLOOD SPECIMENOrdering Facility: [facility] Address: [address] [place] [address] Performed By: #### P TTAC, 3255-7 ####[facility] [id number] [address] STATES [place] aPTT Coag (PPP) [Time] 42.3 s High 23.0-32.4 [facility] Comment on above: Order Comment: Speci men Type: VENOUS BLOOD SPECIMEN Ordering Facility: [facility] Address: [address] [place] [address] Performed By: #### 2 4344-4 #### [facility] CLIA [id number] STATES [place] Procalcitonin SerPl-mCncon 0 10-23-2023 Procalcitonin [Mass/Vol] 0.07 ng/mL Normal <0.09 [facility] Comment on above: Order Comment: Speci men Type: BLOOD SPECIMEN Ordering Facility: [facility] Address: [address] [place] [address] Result Comment: For a guided interpretation of test results, please visit the Change in Procalcitonin Calculator, [email or web address]. Performed By: #### 3 3959-8, 3016-3, 41795-8, 38308-5 #### [facility] CLIA [id number] [address] [place] [address] [place] STAPHYLOCOCCUS AUREUS AND MR SA SCREEN, PCR, NASALon 06-24-2024 S. aureus and MRSA panel DANNIELLE+probe (Nose) Not detected Normal Not Detected [facility] Comment on above: Order Comment: Speci ria Type: BLOOD SPECIMEN Ordering Facility: [facility] Address: [address] [place] [address] Performed By: #### P TTAC #### [facility] CLIA [id number] [address] [place] [id number] [facility] TSH SerPl-aCncon 10-23-2023 TSH Qn 4.860 m[IU]/L High 0.270-4.200 [facility] Comment on above: Order Comment: Speci men Type: BLOOD SPECIMEN Ordering Facility: [facility] Address: [address] [place] [address] Performed By: #### 3 3959-8, 3016-3, 54439-8, 66304-9 #### [facility] CLIA [id number] [facility] US DVT LOWER BILon 4 US DVT LOWER DELMI * * *Final Report* * * DATE OF EXAM: Oct 23 2023 3:21AM FVU 1005 - US DVT LOWER DELMI / PROCEDURE REASON: Leg deep vein thrombosis (DVT), new symptoms * * * * Physician Interpretation * * * * EXAMINATION: RIGHT AND LEFT LOWER EXTREMITY DEEP VENOUS ULTRASOUND WITH DOPPLER IMAGING CLINICAL HISTORY: Pulmonary embolus bilateral lower extremity swelling TECHNIQUE: Grayscale with compression maneuvers, color Doppler and spectral Doppler imaging of the right and left proximal deep veins was performed. Grayscale with compression maneuvers of the right and left peroneal and posterior tibial veins was performed. The right and left great and small saphenous veins were evaluated at their insertion to the deep system. Images were obtained and stored in a permanent archive. MQ: USLEB_1 COMPARISON: None RESULT: RIGHT LOWER EXTREMITY PROXIMAL DEEP VEINS Distal External Iliac, Common Femoral and Proximal Profunda Veins: Compression: Normal Doppler: Normal, spontaneous respirophasic flow. Normal response to augmentation. Femoral vein: Compression: Abnormal Doppler: Abnormal, absent spontaneous flow. Augmentation Not performed. Popliteal vein: Compression: Abnormal Doppler: Abnormal, absent spontaneous flow. Augmentation not performed. CALF DEEP VEINS Peroneal veins: Abnormal compression. Posterior tibial veins: Abnormal compression. Gastrocnemius and Soleal veins: Not imaged. SUPERFICIAL VEINS Great saphenous: Patent and compressible at insertion into common femoral vein; not otherwise assessed. Small Saphenous: Not identified. LEFT LOWER EXTREMITY PROXIMAL DEEP VEINS Distal External Iliac, Common Femoral and Proximal Profunda Veins: Compression: Normal Doppler: Normal, spontaneous respirophasic flow. Normal response to augmentation. Femoral vein: Compression: Normal Doppler: Normal, spontaneous respirophasic flow. Normal response to augmentation. Popliteal vein: Compression: Normal Doppler: Normal, spontaneous respirophasic flow. Normal response to augmentation. CALF DEEP VEINS Peroneal veins: Normal compression. Posterior tibial veins: Normal compression. Gastrocnemius and Soleal veins: Not imaged. SUPERFICIAL VEINS Great saphenous: Patent and compressible at insertion into common femoral vein; not otherwise assessed. Small Saphenous: Not identified. IMPRESSION: Positive study for acute proximal DVT in the right lower extremity femoral and popliteal veins. Positive study for acute calf DVT in the right posterior tibial and peroneal veins. Negative study for superficial thrombophlebitis in the imaged segments of the left and right lower extremities. URGENT RESULTS Acuity: Urgent Communication: Communicated with MAYNOR JIMENEZ on 10/23/2023 4:14 AM via verbal communication. --END OF FINDING-- Voltage Regulator Assembler: WILNER Transcribe Date/Time: Oct 23 2023 3:53A Dictated by : ALETHEA BREWSTER MD This examination was interpreted and the report reviewed and electronically signed by: ALETHEA BREWSTER MD on Oct 23 2023 4:14AM EST [id number] Normal [facility] XR CHEST 1V FRONTAL PORTon 0 10-23-2023 XR CHEST 1V FRONTAL PORT * * *Final Report* * * DATE OF EXAM: Oct 23 2023 2:45AM FVX 5376 - XR CHEST 1V FRONTAL PORT / PROCEDURE REASON: Shortness of breath * * * * Physician Interpretation * * * * EXAMINATION: CHEST RADIOGRAPH (PORTABLE SINGLE VIEW AP) Exam Date/Time: 10/23/2023 2:45 AM CLINICAL HISTORY: Shortness of breath MQ: XCPR_5 COMPARISON: Outside CT chest from yesterday. TECHNIQUE: An AP view of the chest. FINDINGS: Heart size and pulmonary vessels are normal. The lungs are clear. No evidence of pleural effusion or pneumothorax. Osseous structures are grossly unremarkable for age. IMPRESSION: No evidence of an acute cardiopulmonary process. Voltage Regulator Assembler: PSCB Transcribe Date/Time: Oct 23 2023 3:19A Dictated by : AVRIL CARMEN MD This examination was interpreted and the report reviewed and electronically signed by: AVRIL CARMEN MD on Oct 23 2023 3:19AM EST [id number] Normal [facility] 12 Lead EKGon 10-22-2023 12 Lead EKG Normal [facility] BNP,B-Type NATRIURETIC PEPTI Odin 10-22-2023 Natriuretic peptide B (Bld) [Mass/Vol] 293.9 pg/mL High 0-100 [facility] Comment on above: Performed By: #### L 503.6620, L503.6005, L501.4020 ####[facility] [address] [place], [address] Basic Metabolic Profile (BMP )on 10-22-2023 BUN/CRE 13.3 RATIO Normal 10-20 [facility] Comment on above: Order Comment: 1Y Performed By: #### L 100.0100, L500.2500, L501.5425, L500.3400 ####[facility] [address] [place], [address] CA,Total 9.0 mg/dL Normal 8.5-10.1 [facility] Comment on above: Order Comment: 1Y Performed By: #### L 100.0100, L500.2500, L501.5425, L500.3400 ####[facility] [address] [place], [address] Chloride [Moles/Vol] 109 mmol/L High 98-107 [facility] Comment on above: Order Comment: 1Y Performed By: #### L 100.0100, L500.2500, L501.5425, L500.3400 ####[facility] [address] [facility] [address] CO2 [Moles/Vol] 22.0 mmol/L Normal 21.0-32.0 [facility] Comment on above: Order Comment: 1Y Performed By: #### L 100.0100, L500.2500, L501.5425, L500.3400 ####[facility] [address] [place], [address] Creatinine [Mass/Vol] 1.81 mg/dL High 0.70-1.30 [facility] Comment on above: Order Comment: 1Y Result Comment: The validity of the calculated GFR GFRAA in patients over70 years has not been determined. Clinical correlation isessential. Performed By: #### L 100.0100, L500.2500, L501.5425, L500.3400 ####[facility] [address] [place], [address] ECRCL 45.29 ml/min Normal [facility] Comment on above: Order Comment: 1Y Performed By: #### L 100.0100, L500.2500, L501.5425, L500.3400 ####[facility] [address] [place], [address] EST GFR - AA 47 mL/min Low >60 [facility] Comment on above: Order Comment: 1Y Result Comment: Afri can [place]ian GFR Calc Performed By: #### L 100.0100, L500.2500, L501.5425, L500.3400 ####[facility] [address] [place], [address] GAP 9 Normal 5-15 [facility] Comment on above: Order Comment: 1Y Performed By: #### L 100.0100, L500.2500, L501.5425, L500.3400 ####[facility] [address] [place], [address] GFR/1.73 sq M.predicted among non-blacks MDRD (S/P/Bld) [Vol rate/Area] 39 mL/min/{1.73_m2} Low >60 [facility] Comment on above: Order Comment: 1Y Result Comment: Non- GFR Calc Performed By: #### L 100.0100, L500.2500, L501.5425, L500.3400 ####[facility] [address] [place], [address] Glucose [Mass/Vol] 177 mg/dL High 74-106 [facility] Comment on above: Order Comment: 1Y Result Comment: Fast ing Glucose result greater than or equal to 126 mg/dLsuggests DIABETES MELLITUS per A.D.A. criteria. Performed By: #### L 100.0100, L500.2500, L501.5425, L500.3400 ####[facility] [address] [place], [address] Potassium [Moles/Vol] 3.5 mmol/L Normal 3.5-5.1 [facility] Comment on above: Order Comment: 1Y Performed By: #### L 100.0100, L500.2500, L501.5425, L500.3400 ####[facility] [address] [place], [address] Sodium [Moles/Vol] 140 mmol/L Normal 136-145 [facility] Comment on above: Order Comment: 1Y Performed By: #### L 100.0100, L500.2500, L501.5425, L500.3400 ####[facility] [address] [place], [address] Urea nitrogen [Mass/Vol] 24 mg/dL High 7-18 [facility] Comment on above: Order Comment: 1Y Performed By: #### L 100.0100, L500.2500, L501.5425, L500.3400 ####[facility] [address] [place], [address] Brain/Head without Contrasto n 10-22-2023 Brain/Head without Contrast Normal [facility] CBC W/Diff, Automatedon 06- Absolute Lymph 2.32 X10 3/uL Normal 0.83-4.51 [facility] Comment on above: Performed By: #### L 100.0100, L500.2500, L501.5425, L500.3400 ####[facility] [address] [place], [address] Absolute Neut 6.2 X10 3/uL Normal 2.0-7.7 [facility] Comment on above: Performed By: #### L 100.0100, L500.2500, L501.5425, L500.3400 ####[facility] [address] [place], [address] Basophils/100 WBC (Bld) 0.5 % Normal 0-1 [facility] Comment on above: Performed By: #### L 100.0100, L500.2500, L501.5425, L500.3400 ####[facility] [address] [place], [address] Eosinophils/100 WBC (Bld) 1.2 % Normal 0-5 [facility] Comment on above: Performed By: #### L 100.0100, L500.2500, L501.5425, L500.3400 ####[facility] [address] [place], [address] Erythrocyte distribution width (RBC) [Ratio] 14.5 % Normal 11.6-14.6 [facility] Comment on above: Performed By: #### L 100.0100, L500.2500, L501.5425, L500.3400 ####[facility] [address] [place], [address] Hematocrit (Bld) [Volume fraction] 48.2 % Normal 40-54 [facility] Comment on above: Performed By: #### L 100.0100, L500.2500, L501.5425, L500.3400 ####[facility] [address] [place], [address] Hemoglobin (Bld) [Mass/Vol] 16.2 g/dL Normal 13.0-16.5 [facility] Comment on above: Performed By: #### L 100.0100, L500.2500, L501.5425, L500.3400 ####[facility] [address] [place], [address] IG% 0.300 Normal 0.0-0.9 [facility] Comment on above: Result Comment: IG% - Immature Granulocytes (promyelocytes, myelocytes andmetamyelocytes) > 1% indicates that a LEFT SHIFT is Present. Performed By: #### L 100.0100, L500.2500, L501.5425, L500.3400 ####[facility] [address] [place], [address] Lymphocytes/100 WBC (Bld) 24.0 % Normal 19-41 [facility] Comment on above: Performed By: #### L 100.0100, L500.2500, L501.5425, L500.3400 ####[facility] [address] [place], [address] MCH (RBC) [Entitic mass] 32.0 pg Normal 27.0-32.0 [facility] Comment on above: Performed By: #### L 100.0100, L500.2500, L501.5425, L500.3400 ####[facility] [address] [place], [address] MCHC (RBC) [Mass/Vol] 33.6 g/dL Normal 32-36 [facility] Comment on above: Performed By: #### L 100.0100, L500.2500, L501.5425, L500.3400 ####[facility] [address] [place], [address] MCV (RBC) [Entitic vol] 95.3 fL High 80-94 [facility] Comment on above: Performed By: #### L 100.0100, L500.2500, L501.5425, L500.3400 ####[facility] [address] [place], [address] Monocytes/100 WBC (Bld) 10.0 % Normal 0-10 [facility] Comment on above: Performed By: #### L 100.0100, L500.2500, L501.5425, L500.3400 ####[facility] [address] [place], [address] Neutrophils/100 WBC (Bld) 64.0 % Normal 47-70 [facility] Comment on above: Performed By: #### L 100.0100, L500.2500, L501.5425, L500.3400 ####[facility] [address] [place], [address] Nucleated RBC (Bld) [#/Vol] 0 10*3/uL Normal 0-5 [facility] Comment on above: Performed By: #### L 100.0100, L500.2500, L501.5425, L500.3400 ####[facility] [address] [place], [address] Platelet mean volume (Bld) [Entitic vol] 9.6 fL Normal 6.2-12.0 [facility] Comment on above: Performed By: #### L 100.0100, L500.2500, L501.5425, L500.3400 ####[facility] [address] [place], [address] Platelets (Bld) [#/Vol] 204 10*3/uL Normal 150-450 [facility] Comment on above: Performed By: #### L 100.0100, L500.2500, L501.5425, L500.3400 ####[facility] [address] [place], [address] RBC (Bld) [#/Vol] 5.06 10*6/uL Normal 4.6-6.2 [facility] Comment on above: Performed By: #### L 100.0100, L500.2500, L501.5425, L500.3400 ####[facility] [address] [place], [address] RDW SD 49.0 fl High 35.1-43.9 [facility] Comment on above: Performed By: #### L 100.0100, L500.2500, L501.5425, L500.3400 ####[facility] [address] [place], [address] WBC (Bld) [#/Vol] 9.7 10*3/uL Normal 4.4-11.0 [facility] Comment on above: Performed By: #### L 100.0100, L500.2500, L501.5425, L500.3400 ####[facility] [address] [place], [address] CTA Chest W/WO Contraston CTA Chest W/WO Contrast Normal [facility] Chest 1 View (Portable)on Chest 1 View (Portable) Normal [facility] Emergency Department Summary on 10-22-2023 Emergency Department Summary Normal [facility] L501.4020on 10-22-2023 TROPONIN-I HS 128 pg/mL Invalid Interpretation Code 3.0-78.0 [facility] Comment on above: Order Comment: 'TROP ' Serial specimen #1, #2 or #3: 3 Result Comment: Crit ical Result(s) Called at: 18:15:47 10/22/2023 by:POPPY HANCOCK. TO OSEAS TRENT RN ER Results read back bysame. Please Note: New Test Units and Gender Specific Reference Ranges. For more information see Policy Stat Procedure Schoolcraft High Sensitivity Troponin (TNIH) and attachments. Performed By: #### L 503.6620, L503.6005, L501.4020 ####[facility] [address] [place], [address] TROPONIN-I HS 77 pg/mL Normal 3.0-78.0 [facility] Comment on above: Result Comment: Plea se Note: New Test Units and Gender Specific Reference Ranges. For more information see Policy Stat Procedure [employer] High Sensitivity Troponin (TNIH) and attachments. Performed By: #### L 501.4020 ####[facility] [address] [place], [address] L501.5425on 10-22-2023 TROPONIN-I HS 38 pg/mL Normal 3.0-78.0 [facility] Comment on above: Order Comment: 1Y Result Comment: Plea se Note: New Test Units and Gender Specific Reference Ranges. For more information see Policy Stat Procedure [employer] High Sensitivity Troponin (TNIH) and attachments. Performed By: #### L 100.0100, L500.2500, L501.5425, L500.3400 ####[facility] [address] [place], [address] Lactic Acidon 10-22-2023 Lactate [Moles/Vol] 1.6 mmol/L Normal 0.4-1.9 [facility] Comment on above: Performed By: #### L 503.6005 ####[facility] [address] [place], [address] Lactate [Moles/Vol] 2.3 mmol/L Invalid Interpretation Code 0.4-1.9 [facility] Comment on above: Order Comment: Y Result Comment: Crit ical Result(s) Called at: 18:16:56 10/22/2023 by:POPPY HANCOCK. TO OSEAS TRENT CLAIM SERVICE REPRESENTATIVE Results read back bysame. Performed By: #### L 503.6620, L503.6005, L501.4020 ####[facility] [address] [place], [address] Liver Profileon 10-22-2023 Albumin [Mass/Vol] 3.3 g/dL Normal 3.2-5.0 [facility] Comment on above: Order Comment: 1Y Performed By: #### L 100.0100, L500.2500, L501.5425, L500.3400 ####[facility] [address] [place], [address] ALK P 88 U/L Normal 45-117 [facility] Comment on above: Order Comment: 1Y Performed By: #### L 100.0100, L500.2500, L501.5425, L500.3400 ####[facility] [address] [place], [address] ALT [Catalytic activity/Vol] 28 U/L Normal 16-61 [facility] Comment on above: Order Comment: 1Y Performed By: #### L 100.0100, L500.2500, L501.5425, L500.3400 ####[facility] [address] [place], [address] AST [Catalytic activity/Vol] 23 U/L Normal 15-37 [facility] Comment on above: Order Comment: 1Y Performed By: #### L 100.0100, L500.2500, L501.5425, L500.3400 ####[facility] [address] [place], [address] Bilirubin [Mass/Vol] 1.10 mg/dL High 0.20-1.00 [facility] Comment on above: Order Comment: 1Y Result Comment: For patients on eltrombopag therapy, use of Dimension Schoolcraft TBIL is not recommended. Performed By: #### L 100.0100, L500.2500, L501.5425, L500.3400 ####[facility] [address] [place], [address] Bilirubin.direct [Mass/Vol] 0.26 mg/dL Normal 0.00-0.30 [facility] Comment on above: Order Comment: 1Y Performed By: #### L 100.0100, L500.2500, L501.5425, L500.3400 ####[facility] [address] [place], [address] Globulin (S) [Mass/Vol] 3.8 g/dL Normal 2.2-4.2 [facility] Comment on above: Order Comment: 1Y Performed By: #### L 100.0100, L500.2500, L501.5425, L500.3400 ####[facility] [address] [place], [address] T PROT 7.1 g/dL Normal 6.4-8.2 [facility] Comment on above: Order Comment: 1Y Performed By: #### L 100.0100, L500.2500, L501.5425, L500.3400 ####[facility] [address] [place], [address] Partial Thromboplast Timeon 10-22-2023 aPTT Coag (Bld) [Time] s Invalid Interpretation Code 24.1-36.2 [facility] Comment on above: Result Comment: CRIT ICAL VALUE VERIFIED. CALLED TO AIDAN [id number] Alexander Carlson.RESULTS READ BACK BY SAME . Performed By: #### L 300.4310 ####[facility] [address] [place], [address] aPTT Coag (Bld) [Time] 27.2 s Normal 24.1-36.2 [facility] Comment on above: Performed By: #### L 300.3900, L300.4310 ####[facility] [address] [place], [address] Prothrombin Time w/INRon INR Coag (PPP) [Relative time] 1.1 {INR} Normal [facility] Comment on above: Performed By: #### L 300.3900, L300.4310 ####[facility] [address] [place], [address] PT Coag (PPP) [Time] 14.0 s Normal 11.7-14.9 [facility] Comment on above: Performed By: #### L 300.3900, L300.4310 ####[facility] [address] [place], [address] XR Lumbar spine 3 Viewson IMPRESSION: DEGENERATIVE CHANGES DESCRIBED Voltage Regulator Assembler: WILNER Transcribe Date/Time: May 15 2023 12:57P Dictated by : BAKARI MYERS MD This examination was interpreted and the report reviewed and electronically signed by: BAKARI MYERS MD on May 15 2023 12:59PM 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 For numbering purposes, L4-5 is at the level of the iliac crest. Some straightening of the normal lordosis. Multilevel moderate disc space narrowing and spondylosis from L1 through L5. No fracture or focal bony abnormality. Degenerative change involving the posterior elements from L2 through S1. Mild dextroscoliosis. 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 For numbering purposes, L4-5 is at the level of the iliac crest. Some straightening of the normal lordosis. Multilevel moderate disc space narrowing and spondylosis from L1 through L5. No fracture or focal bony abnormality. Degenerative change involving the posterior elements from L2 through S1. Mild dextroscoliosis. SI joints appear unremarkable IMPRESSION IMPRESSION: DEGENERATIVE CHANGES DESCRIBED Voltage Regulator Assembler: PSCB Transcribe Date/Time: May 15 2023 12:57P Dictated by : BAKARI MYERS MD This examination was interpreted and the report reviewed and electronically signed by: BAKARI MYERS MD on May 15 2023 12:59PM EST [facility] Radiology Study observation (narrative) [facility] XR Lumbar spine 3 ViewsOrder ed By: [facility] Provider on 05-15-2023 [facility] Dermatopathologyon Dermatopathology Name FRAN PAREKH Pathologist: ASIF AHUMADA MD Date of Procedure: 01/05/2023 Date Received: 01/06/2023 Date Reported 01/09/2023 Submitting Physician: BRUNA CHOWDARY CNP Location: [facility] Other External # FINAL DIAGNOSIS SKIN, LEFT UPPER ARM, SHAVE BIOPSY: LENTIGO AND BENIGN KERATOSIS, 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 Electronically Signed Out by ASIF AHUMADA M.D. Electronically Signed Out By ASIF AHUMADA MD/[facility] By the signature on this report, the individual or group listed as making the Final Interpretation/Diagnosis certifies that they have reviewed this case. Diagnostic interpretation performed at D[facility]atopath [facility] [id number], [facility] [address] Microscopic Description: There is lentiginous hyperplasia of the epidermis, with mild acanthosis and basal layer pigmentation. There are areas of papillomatosis and acanthosis. A step section was performed. Clinical History: MM vs. other. Shave Biopsy. ([facility]) Specimens Submitted As: A: SKIN, LEFT UPPER ARM Gross Description: Received in formalin is one oconnor-brown piece of skin measuring [id number]. The specimen is inked and embedded in toto. /01/06/2023 [facility] Dermatopathology Laboratory [place] [id number] [place] [address], [facility] EMERGENCY DEPARTMENT [address] Normal [facility] Comment on above: Performed By: #### D #### Dermatopathology ECHOon 11-07-2022 [facility] LVEF TRANSTHORACIC ECHOon LV Ejection Fraction 59 % [facility] CBC panel Auto (Bld)on 11-02 Erythrocyte distribution width (RBC) [Ratio] 13.2 % 11.5 - 15.0 % [facility] Hematocrit (Bld) [Volume fraction] 47.7 % 39.0 - 51.0 % [facility] Hemoglobin (Bld) [Mass/Vol] 15.9 g/dL 13.0 - 17.0 g/dL [facility] MCH (RBC) [Entitic mass] 31.7 pg 26.0 - 34.0 pg [facility] MCHC (RBC) [Mass/Vol] 33.3 g/dL 30.5 - 36.0 g/dL [facility] MCV (RBC) [Entitic vol] 95.2 fL 80.0 - 100.0 fL [facility] Nucleated RBC (Bld) [#/Vol] <0.01 k/uL [facility] Platelet mean volume (Bld) [Entitic vol] 10.1 fL 9.0 - 12.7 fL [facility] Platelets (Bld) [#/Vol] 235 10*3/uL 150 - 400 k/uL [facility] RBC (Bld) [#/Vol] 5.01 10*6/uL 4.20 - 6.0 0 m/uL [facility] WBC (Bld) [#/Vol] 7.46 10*3/uL 3.70 - 11.00 k/uL [facility] Comprehensive metabolic 2000 panelon 11-02-2022 Albumin [Mass/Vol] 3.7 g/dL Low 3.9 - 4.9 g/dL [facility] ALP [Catalytic activity/Vol] 83 U/L 38 - 113 U/L [facility] ALT [Catalytic activity/Vol] 27 U/L 10 - 54 U/L [facility] Anion gap [Moles/Vol] 11 mmol/L 9 - 18 mmol/L [facility] AST [Catalytic activity/Vol] 26 U/L 14 - 40 U/L [facility] Bilirubin [Mass/Vol] 0.5 mg/dL 0.2 - 1 .3 mg/dL [facility] Calcium [Mass/Vol] 9.1 mg/dL 8.5 - 10. 2 mg/dL [facility] Chloride [Moles/Vol] 104 mmol/L 97 - 10 5 mmol/L [facility] CO2 [Moles/Vol] 24 mmol/L 22 - 30 mmol/L [facility] Creatinine [Mass/Vol] 1.36 mg/dL High 0.73 - 1.22 mg/dL [facility] Estimated Glomerular Filtration Rate 53 mL/min/1.73m Low >=60 mL/min/1.73 m [facility] Glucose [Mass/Vol] 116 mg/dL High 74 - 99 mg/dL [facility] Potassium [Moles/Vol] 4.5 mmol/L 3.7 - 5.1 mmol/L [facility] Protein [Mass/Vol] 6.4 g/dL 6.3 - 8.0 g/dL [facility] Sodium [Moles/Vol] 139 mmol/L 136 - 144 mmol/L [facility] Urea nitrogen [Mass/Vol] 20 mg/dL 9 - 24 mg/dL [facility] HbA1c (Bld)on 11-02-2022 Average glucose Estimated from glycated hemoglobin (Bld) [Mass/Vol] 126 mg/dL [facility] HbA1c (Bld) [Mass fraction] 6.0 % High 4.3 - 5.6 % [facility] Lipid 1996 panelon 3 Cholesterol [Mass/Vol] 145 mg/dL <200 mg/dL [facility] Cholesterol in HDL [Mass/Vol] 31 mg/dL Low >39 mg/dL [facility] Cholesterol in LDL [Mass/Vol] 70 mg/dL <100 mg/dL [facility] Cholesterol in LDL/Cholesterol in HDL [Mass ratio] 2.26 {ratio} <2.54 [facility] Cholesterol in VLDL [Mass/Vol] 44 mg/dL High <30 mg/dL [facility] Cholesterol non HDL [Mass/Vol] 114 mg/dL <130 mg/dL [facility] Cholesterol.total/Chol esterol in HDL [Mass ratio] 4.68 {ratio} <5.10 [facility] Fasting Time 13 hrs [facility] Triglyceride [Mass/Vol] 221 mg/dL High <150 mg/dL [facility] TSH BLDon 11-02-2022 TSH Qn 1.850 m[IU]/L 0.270 - 4.200 mIU/L [facility] Comprehensive metabolic 2000 panelon 04-13-2022 Albumin [Mass/Vol] 3.9 g/dL 3.9 - 4.9 g/dL [facility] ALP [Catalytic activity/Vol] 69 U/L 38 - 113 U/L [facility] ALT [Catalytic activity/Vol] 22 U/L 10 - 54 U/L [facility] Anion gap [Moles/Vol] 11 mmol/L 9 - 18 mmol/L [facility] AST [Catalytic activity/Vol] 25 U/L 14 - 40 U/L [facility] Bilirubin [Mass/Vol] 0.5 mg/dL 0.2 - 1 .3 mg/dL [facility] Calcium [Mass/Vol] 9.1 mg/dL 8.5 - 10. 2 mg/dL [facility] Chloride [Moles/Vol] 108 mmol/L High 97 - 10 5 mmol/L [facility] CO2 [Moles/Vol] 22 mmol/L 22 - 30 mmol/L [facility] Creatinine [Mass/Vol] 1.37 mg/dL High 0.73 - 1.22 mg/dL [facility] Estimated Glomerular Filtration Rate 53 mL/min/1.73m Low >=60 mL/min/1.73 m [facility] Glucose [Mass/Vol] 109 mg/dL High 74 - 99 mg/dL [facility] Potassium [Moles/Vol] 4.4 mmol/L 3.7 - 5.1 mmol/L [facility] Protein [Mass/Vol] 6.8 g/dL 6.3 - 8.0 g/dL [facility] Sodium [Moles/Vol] 141 mmol/L 136 - 144 mmol/L [facility] Urea nitrogen [Mass/Vol] 22 mg/dL 9 - 24 mg/dL [facility] HbA1c (Bld)on 07-14-2021 Average glucose Estimated from glycated hemoglobin (Bld) [Mass/Vol] 128 mg/dL [facility] HbA1c (Bld) [Mass fraction] 6.1 % High 4.3 - 5.6 % [facility] Vital Signs Date Time Vital Sign Value Performing Clinician Caprice jalloh 10-08-2024 09:35-0400 Body mass index (BMI) [Ratio] 42.61 kg/m2 Marilia Podlogar RECORD TESTER.SUPERVISOR REMELT Work Phone: [facility] 10-08-2024 09:35-0400 Body weight 132.9 kg Marilia Podlogar RECORD TESTER.SUPERVISOR REMELT Work Phone: [facility] 10-08-2024 09:35-0400 Diastolic blood pressure 76 mm[Hg] Marilia Podlogar RECORD TESTER.SUPERVISOR REMELT Work Phone: [facility] 10-08-2024 09:35-0400 Heart rate 58 /min Marilia Podlogar RECORD TESTER.SUPERVISOR REMELT Work Phone: [facility] 10-08-2024 09:35-0400 Respiratory rate 18 /min Marilia Podlogar RECORD TESTER.SUPERVISOR REMELT Work Phone: [facility] 10-08-2024 09:35-0400 SaO2% (BldA) [Mass fraction] 98 % Marilia Podlogar RECORD TESTER.SUPERVISOR REMELT Work Phone: [facility] 10-08-2024 09:35-0400 Systolic blood pressure 118 mm[Hg] Marilia Podlogar RECORD TESTER.SUPERVISOR REMELT Work Phone: [facility] 10-07-2024 13:40-0400 Body temperature 98.1 [degF] Dr. Salvador Diaz MD Work Phone: [facility] 10-07-2024 13:40-0400 Diastolic blood pressure 80 mm[Hg] Dr. Salvador Diaz MD Work Phone: [facility] 10-07-2024 13:40-0400 Heart rate 48 /min Dr. Salvador Diaz MD Work Phone: [facility] 10-07-2024 13:40-0400 Respiratory rate 18 /min Dr. Salvador Diaz MD Work Phone: [facility] 10-07-2024 13:40-0400 SaO2% (BldA) [Mass fraction] 96 % Dr. Salvador Diaz MD Work Phone: [phone](426)407-637036 [place] [address] 10-07-2024 13:40-0400 Systolic blood pressure 137 mm[Hg] Dr. Salvador Diaz MD Work Phone: 1(482)072-924336 [place] [address] 10-07-2024 10:53-0400 Body height 177.[address] Salvador Diaz MD Work Phone: 8(183)805-829136 [place] [address] 10-07-2024 10:53-0400 Body mass index (BMI) [Ratio] 41.5 kg/m2 Dr. Salvador Diaz MD Work Phone: 1(141)479-313736 [place] [address] 10-07-2024 10:53-0400 Body weight 131.[address] Salvador Diaz MD Work Phone: 6(653)417-635736 [place] [address] 09-17-2024 09:36-0400 Body height 177.[address] Salvador Diaz MD Work Phone: 1(220)[phone] [place] [address] 09-17-2024 09:36-0400 Body mass index (BMI) [Ratio] 42.3 kg/m2 Dr. Salvador Diaz MD Work Phone: 8(706)451-982236 [place] [address] 09-17-2024 09:36-0400 Body weight 133.[address] Salvador Diaz MD Work Phone: 9(672)828-227436 [place] [address] 08-31-2024 13:47-0400 Diastolic blood pressure 78 mm[Hg] Dr. Salvador Diaz MD Work Phone: 4(448)437-440336 [place] [address] 08-31-2024 13:47-0400 Heart rate 78 /min Dr. Salvador Diaz MD Work Phone: 9(296)717-845336 [place] [address] 08-31-2024 13:47-0400 Respiratory rate 16 /min Dr. Salvador Diaz MD Work Phone: 3(989)478-945336 [place] [address] 08-31-2024 13:47-0400 SaO2% (BldA) [Mass fraction] 98 % Dr. Salvador Diaz MD Work Phone: [facility] 08-31-2024 13:47-0400 Systolic blood pressure 134 mm[Hg] Dr. Salvador Diaz MD Work Phone: [facility] 08-31-2024 11:25-0400 Body mass index (BMI) [Ratio] 43 kg/m2 Dr. Salvador Diaz MD Work Phone: [facility] 08-31-2024 11:25-0400 Body weight 136.[address] Salvador Diaz MD Work Phone: [facility] 08-31-2024 11:23-0400 Body temperature 97.7 [degF] Dr. Salvador Diaz MD Work Phone: [facility] 08-13-2024 11:45-0400 Body height 176.6 cm Marilia Podlogar RECORD TESTER.SUPERVISOR REMELT Work Phone: [facility] 08-13-2024 11:45-0400 Body mass index (BMI) [Ratio] 42.88 kg/m2 Marilia Podlogar RECORD TESTER.SUPERVISOR REMELT Work Phone: [facility] 08-13-2024 11:45-0400 Body weight 133.72 kg Marilia Podlogar RECORD TESTER.SUPERVISOR REMELT Work Phone: [facility] 08-13-2024 11:45-0400 Diastolic blood pressure 82 mm[Hg] Marilia Podlogar RECORD TESTER.SUPERVISOR REMELT Work Phone: [facility] 08-13-2024 11:45-0400 Heart rate 65 /min Marilia Podlogar RECORD TESTER.SUPERVISOR REMELT Work Phone: [facility] 08-13-2024 11:45-0400 Respiratory rate 18 /min Marilia Podlogar RECORD TESTER.SUPERVISOR REMELT Work Phone: [facility] 08-13-2024 11:45-0400 SaO2% (BldA) [Mass fraction] 95 % Marilia Podlogar RECORD TESTER.SUPERVISOR REMELT Work Phone: [phone] [place] [address] 08-13-2024 11:45-0400 Systolic blood pressure 118 mm[Hg] Marilia Podlognarciso RECORD TESTER.SUPERVISOR REMELT Work Phone: 1(556)[phone] [place] [address] 07-04-2024 11:22-0500 Body temperature 97.5 [degF] Dr. Salvador Diaz MD Work Phone: [phone] [place] [address] 07-04-2024 11:22-0500 Diastolic blood pressure 59 mm[Hg] Dr. Salvador Diaz MD Work Phone: 7(687)[phone] [place] [address] 07-04-2024 11:22-0500 Heart rate 59 /min Dr. Salvador Diaz MD Work Phone: 6(378)[phone] [place] [address] 07-04-2024 11:22-0500 Respiratory rate 16 /min Dr. Salvador Diaz MD Work Phone: 3(388)119-759236 [place] [address] 07-04-2024 11:22-0500 SaO2% (BldA) [Mass fraction] 96 % Dr. Salavdor Diaz MD Work Phone: 0(056)[phone] [place] [address] 07-04-2024 11:22-0500 Systolic blood pressure 114 mm[Hg] Dr. Salvador Diaz MD Work Phone: 3(590)589-910036 [place] [address] 07-04-2024 08:49-0500 Body height 177.[address] Salvador Diaz MD Work Phone: 2(538)766-598336 [place] [address] 07-04-2024 08:49-0500 Body mass index (BMI) [Ratio] 42 kg/m2 Dr. Salvador Diaz MD Work Phone: 6(188)[phone] [place] [address] 07-04-2024 08:49-0500 Body weight [address] Salvador Diaz MD Work Phone: 2(111)[phone] [place] [address] 04-01-2024 11:45-0500 Body mass index (BMI) [Ratio] 38.45 kg/m2 Marilia Podlognarciso RECORD TESTER.SUPERVISOR [employer]ELT Work Phone: 7(582)[phone] [place] [address] 04-01-2024 11:45-0500 Body temperature 97.9 [degF] Marilia Podlogar RECORD TESTER.SUPERVISOR [employer]ELT Work Phone: [facility] 04-01-2024 11:45-0500 Body weight 128.6 kg Marilia Podlogar RECORD TESTER.SUPERVISOR [employer]T Work Phone: [facility] 04-01-2024 11:45-0500 Diastolic blood pressure 82 mm[Hg] Marilia Podlogar RECORD TESTER.SUPERVISOR [employer]T Work Phone: [facility] 04-01-2024 11:45-0500 Heart rate 59 /min Marilia Podlogar RECORD TESTER.SUPERVISOR [employer]T Work Phone: [facility] 04-01-2024 11:45-0500 Respiratory rate 18 /min Marilia Podlogar RECORD TESTER.SUPERVISOR [employer]ELT Work Phone: [facility] 04-01-2024 11:45-0500 SaO2% (BldA) [Mass fraction] 96 % Marilia Podlogar RECORD TESTER.SUPERVISOR [employer]ELT Work Phone: [facility] 04-01-2024 11:45-0500 Systolic blood pressure 138 mm[Hg] Marilia Podlogar RECORD TESTER.SUPERVISOR [employer]ELT Work Phone: [facility] 03-28-2024 14:00-0500 Body temperature 97.8 [degF] Dr. Salvador Diaz MD Work Phone: [facility] 03-28-2024 14:00-0500 Diastolic blood pressure 75 mm[Hg] Dr. Salvador Diaz MD Work Phone: [facility] 03-28-2024 14:00-0500 Heart rate 62 /min Dr. Salvador Diaz MD Work Phone: [facility] 03-28-2024 14:00-0500 Respiratory rate 16 /min Dr. Salvador Diaz MD Work Phone: [facility] 03-28-2024 14:00-0500 SaO2% (BldA) [Mass fraction] 96 % Dr. Salvador Diaz MD Work Phone: [facility] 03-28-2024 14:00-0500 Systolic blood pressure 125 mm[Hg] Dr. Salvador Diaz MD Work Phone: [facility] 03-27-2024 11:14-0500 Body mass index (BMI) [Ratio] 41.2 kg/m2 Dr. Salvador Diaz MD Work Phone: [facility] 03-27-2024 11:14-0500 Body weight 130.[address] Salvador Diaz MD Work Phone: [facility] 02-14-2024 11:25-0400 Body mass index (BMI) [Ratio] 39.53 kg/m2 Marilia Podlogar RECORD TESTER.SUPERVISOR [employer]T Work Phone: [facility] 02-14-2024 11:25-0400 Body weight 132.2 kg Marilia Podlogar RECORD TESTER.SUPERVISOR [employer]T Work Phone: [facility] 02-14-2024 11:25-0400 Diastolic blood pressure 84 mm[Hg] Marilia Podlogar RECORD TESTER.SUPERVISOR [employer]ELT Work Phone: [facility] 02-14-2024 11:25-0400 Heart rate 60 /min Marilia Podlogar RECORD TESTER.SUPERVISOR [employer]ELT Work Phone: [facility] 02-14-2024 11:25-0400 Respiratory rate 18 /min Marilia Podlogar RECORD TESTER.SUPERVISOR [employer]ELT Work Phone: [facility] 02-14-2024 11:25-0400 SaO2% (BldA) [Mass fraction] 95 % Marilia Podlogar RECORD TESTER.SUPERVISOR [employer]ELT Work Phone: [facility] 02-14-2024 11:25-0400 Systolic blood pressure 138 mm[Hg] Marilia Podlogar RECORD TESTER.SUPERVISOR [employer]T Work Phone: [facility] 01-29-2024 11:06-0400 Body mass index (BMI) [Ratio] 38.78 kg/m2 Marilia Podlogar RECORD TESTER.SUPERVISOR [employer]T Work Phone: [facility] 01-29-2024 11:06-0400 Body temperature 97.59 [degF] Marilia Podlogar RECORD TESTER.SUPERVISOR [employer]ELT Work Phone: [facility] 01-29-2024 11:06-0400 Body weight 129.7 kg Marilia Podlogar RECORD TESTER.SUPERVISOR [employer]ELT Work Phone: [facility] 01-29-2024 11:06-0400 Diastolic blood pressure 92 mm[Hg] Marilia Podlogar RECORD TESTER.SUPERVISOR REMELT Work Phone: [facility] 01-29-2024 11:06-0400 Heart rate 59 /min Marilia Podlogar RECORD TESTER.SUPERVISOR [employer]ELT Work Phone: [facility] 01-29-2024 11:06-0400 Respiratory rate 16 /min Marilia Podlogar RECORD TESTER.SUPERVISOR [employer]ELT Work Phone: [facility] 01-29-2024 11:06-0400 SaO2% (BldA) [Mass fraction] 96 % Marilia Podlogar RECORD TESTER.SUPERVISOR [employer]ELT Work Phone: [facility] 01-29-2024 11:06-0400 Systolic blood pressure 144 mm[Hg] Marilia Podlogar RECORD TESTER.SUPERVISOR [employer]ELT Work Phone: [facility] 01-24-2024 12:02-0400 Body mass index (BMI) [Ratio] 38.9 kg/m2 Marilia Podlogar RECORD TESTER.SUPERVISOR [employer]ELT Work Phone: [facility] 01-24-2024 12:02-0400 Body temperature 98.2 [degF] Marilai Podlogar RECORD TESTER.SUPERVISOR [employer]ELT Work Phone: [facility] 01-24-2024 12:02-0400 Body weight 130.1 kg Marilia Podlogar RECORD TESTER.SUPERVISOR [employer]ELT Work Phone: [facility] 01-24-2024 12:02-0400 Diastolic blood pressure 90 mm[Hg] Marilia Podlogar RECORD TESTER.SUPERVISOR [employer]ELT Work Phone: [facility] 01-24-2024 12:02-0400 Heart rate 81 /min Marilia Podlogar RECORD TESTER.SUPERVISOR [employer]ELT Work Phone: [facility] 01-24-2024 12:02-0400 Respiratory rate 16 /min Marilia Podlogar RECORD TESTER.SUPERVISOR [employer]ELT Work Phone: [facility] 01-24-2024 12:02-0400 SaO2% (BldA) [Mass fraction] 97 % Marilia Podlogar RECORD TESTER.SUPERVISOR [employer]ELT Work Phone: [facility] 01-24-2024 12:02-0400 Systolic blood pressure 134 mm[Hg] Marilia Podlogar RECORD TESTER.SUPERVISOR [employer]ELT Work Phone: [facility] 01-22-2024 11:25-0400 Body mass index (BMI) [Ratio] 39.14 kg/m2 Agnes Diaz MD Work Phone: [facility] 01-22-2024 11:25-0400 Body temperature 97.9 [degF] Agnes Diaz MD Work Phone: [facility] 01-22-2024 11:25-0400 Body weight 130.91 kg Agnes Diaz MD Work Phone: [facility] 01-22-2024 11:25-0400 Diastolic blood pressure 72 mm[Hg] Agnes Daiz MD Work Phone: [facility] 01-22-2024 11:25-0400 Heart rate 76 /min Agnes Diaz MD Work Phone: [facility] 01-22-2024 11:25-0400 Respiratory rate 18 /min Agnes Diaz MD Work Phone: [facility] 01-22-2024 11:25-0400 SaO2% (BldA) [Mass fraction] 98 % Agnes Diaz MD Work Phone: [facility] 01-22-2024 11:25-0400 Systolic blood pressure 124 mm[Hg] Agnes Diaz MD Work Phone: [facility] 01-19-2024 09:40-0400 Body mass index (BMI) [Ratio] 38.27 kg/m2 Marilia Podlogar RECORD TESTER.SUPERVISOR [employer]T Work Phone: [facility] 01-19-2024 09:40-0400 Body temperature 98.01 [degF] Marilia Podlogar RECORD TESTER.SUPERVISOR [employer]ELT Work Phone: [facility] 01-19-2024 09:40-0400 Body weight 128 kg Marilia Podlogar RECORD TESTER.SUPERVISOR [employer]ELT Work Phone: [facility] 01-19-2024 09:40-0400 Diastolic blood pressure 94 mm[Hg] Marilia Podlogar RECORD TESTER.SUPERVISOR REMELT Work Phone: [facility] 01-19-2024 09:40-0400 Heart rate 84 /min Marilia Podlogar RECORD TESTER.SUPERVISOR REMELT Work Phone: [facility] 01-19-2024 09:40-0400 Respiratory rate 18 /min Marilia Podlogar RECORD TESTER.SUPERVISOR REMELT Work Phone: [facility] 01-19-2024 09:40-0400 SaO2% (BldA) [Mass fraction] 98 % Marilia Podlogar RECORD TESTER.SUPERVISOR [employer]ELT Work Phone: [facility] 01-19-2024 09:40-0400 Systolic blood pressure 132 mm[Hg] Marilia Podlogar RECORD TESTER.SUPERVISOR REMELT Work Phone: [facility] 01-18-2024 12:03-0400 Body mass index (BMI) [Ratio] 38.93 kg/m2 Joleen Munoz RECORD TESTER.SUPERVISOR REMELT Work Phone: [facility] 01-18-2024 12:03-0400 Body temperature 97.39 [degF] Joleen Munoz RECORD TESTER.SUPERVISOR REMELT Work Phone: [facility] 01-18-2024 12:03-0400 Body weight 130.2 kg Joleen Munoz RECORD TESTER.SUPERVISOR REMELT Work Phone: [facility] 01-18-2024 12:03-0400 Diastolic blood pressure 76 mm[Hg] Joleen Munoz RECORD TESTER.SUPERVISOR REMELT Work Phone: [facility] 01-18-2024 12:03-0400 Heart rate 79 /min Joleen Munoz RECORD TESTER.SUPERVISOR REMELT Work Phone: [facility] 01-18-2024 12:03-0400 Respiratory rate 18 /min Joleen Munoz APRN.SUPERVISOR REMELT Work Phone: [facility] 01-18-2024 12:03-0400 SaO2% (BldA) [Mass fraction] 97 % Joleen Munoz APRN.SUPERVISOR REMELT Work Phone: [facility] 01-18-2024 12:03-0400 Systolic blood pressure 126 mm[Hg] Joleen Munoz APRN.SUPERVISOR REMELT Work Phone: [facility] 01-18-2024 08:39-0400 Diastolic blood pressure 86 mm[Hg] Pradhab Kirupaharan DO Work Phone: [facility] 01-18-2024 08:39-0400 Heart rate 72 /min Pradhab Kirupaharan DO Work Phone: [facility] 01-18-2024 08:39-0400 Respiratory rate 18 /min Pradhab Kirupaharan DO Work Phone: [facility] 01-18-2024 08:39-0400 SaO2% (BldA) [Mass fraction] 97 % Pradhab Kirupaharan DO Work Phone: [facility] 01-18-2024 08:39-0400 Systolic blood pressure 143 mm[Hg] Pradhab Kirupaharan DO Work Phone: [facility] 12-19-2023 14:51-0400 Body mass index (BMI) [Ratio] 38.78 kg/m2 Sidra Pepe MD Work Phone: [facility] 12-19-2023 14:51-0400 Body weight 129.7 kg Sidra Pepe MD Work Phone: [facility] 12-19-2023 14:51-0400 Diastolic blood pressure 82 mm[Hg] Sidra Pepe MD Work Phone: [facility] 12-19-2023 14:51-0400 Heart rate 70 /min Sidra Pepe MD Work Phone: [facility] 12-19-2023 14:51-0400 Systolic blood pressure 145 mm[Hg] Sidra Pepe MD Work Phone: [facility] 12-18-2023 08:00-0400 Diastolic blood pressure 83 mm[Hg] Yogesh Golias PT Work Phone: [facility] 12-18-2023 08:00-0400 Heart rate 55 /min Yogesh Golias PT Work Phone: [facility] 12-18-2023 08:00-0400 Systolic blood pressure 130 mm[Hg] Yogesh Golias PT Work Phone: [facility] 11-09-2023 10:42-0400 Body height 182.9 cm Pradhab Kirupaharan DO Work Phone: [facility] 11-09-2023 10:42-0400 Body mass index (BMI) [Ratio] 38.52 kg/m2 Pradhab Kirupaharan DO Work Phone: [facility] 11-09-2023 10:42-0400 Body weight 128.82 kg Pradhab Kirupaharan DO Work Phone: [facility] 11-09-2023 10:42-0400 Diastolic blood pressure 84 mm[Hg] Pradhab Kirupaharan DO Work Phone: [facility] 11-09-2023 10:42-0400 Heart rate 55 /min Pradhab Kirupaharan DO Work Phone: [facility] 11-09-2023 10:42-0400 SaO2% (BldA) [Mass fraction] 96 % Pradhab Kirupaharan DO Work Phone: [facility] 11-09-2023 10:42-0400 Systolic blood pressure 141 mm[Hg] Pradhab Kirupaharan DO Work Phone: [facility] 10-30-2023 13:14-0400 Body mass index (BMI) [Ratio] 38.52 kg/m2 Agnes Diaz MD Work Phone: [facility] 10-30-2023 13:14-0400 Body weight 128.82 kg Agnes Diaz MD Work Phone: [facility] 10-30-2023 13:14-0400 Diastolic blood pressure 86 mm[Hg] Agnes Diaz MD Work Phone: [facility] 10-30-2023 13:14-0400 Heart rate 72 /min Agnes Diaz MD Work Phone: [facility] 10-30-2023 13:14-0400 Respiratory rate 20 /min Agnes Diaz MD Work Phone: [facility] 10-30-2023 13:14-0400 SaO2% (BldA) [Mass fraction] 95 % Agnes Diaz MD Work Phone: [facility] 10-30-2023 13:14-0400 Systolic blood pressure 138 mm[Hg] Agnes Diaz MD Work Phone: [facility] 10-09-2023 07:16-0400 Body mass index (BMI) [Ratio] 42.39 kg/m2 Sherrell Rouse RECORD TESTER.SUPERVISOR [employer]ELT Work Phone: [facility] 10-09-2023 07:16-0400 Body temperature 96.91 [degF] Sherrell Rouse RECORD TESTER.SUPERVISOR REMELT Work Phone: [facility] 10-09-2023 07:16-0400 Body weight 134 kg Sherrell Rouse RECORD TESTER.SUPERVISOR REMELT Work Phone: [facility] 10-09-2023 07:16-0400 Diastolic blood pressure 80 mm[Hg] Sherrell Rouse RECORD TESTER.SUPERVISOR REMELT Work Phone: [facility] 10-09-2023 07:16-0400 Heart rate 78 /min Sherrell Rouse RECORD TESTER.SUPERVISOR REMELT Work Phone: [facility] 10-09-2023 07:16-0400 Respiratory rate 16 /min Sherrell Rouse RECORD TESTER.SUPERVISOR REMELT Work Phone: [facility] 10-09-2023 07:16-0400 SaO2% (BldA) [Mass fraction] 96 % Sherrell Rouse RECORD TESTER.SUPERVISOR REMELT Work Phone: [facility] 10-09-2023 07:16-0400 Systolic blood pressure 142 mm[Hg] Sherrell Rouse RECORD TESTER.SUPERVISOR REMELT Work Phone: [facility] 08-01-2023 09:27-0400 Body weight 129.37 kg Marilia Podlogar RECORD TESTER.SUPERVISOR REMELT Work Phone: [facility] 08-01-2023 09:27-0400 Diastolic blood pressure 82 mm[Hg] Marilia Podlogar RECORD TESTER.SUPERVISOR REMELT Work Phone: [facility] 08-01-2023 09:27-0400 Heart rate 65 /min Marilia Podlogar RECORD TESTER.SUPERVISOR REMELT Work Phone: [facility] 08-01-2023 09:27-0400 Respiratory rate 18 /min Marilia Podlogar RECORD TESTER.SUPERVISOR REMELT Work Phone: [facility] 08-01-2023 09:27-0400 SaO2% (BldA) [Mass fraction] 94 % Marilia Podlogar RECORD TESTER.SUPERVISOR REMELT Work Phone: [facility] 08-01-2023 09:27-0400 Systolic blood pressure 122 mm[Hg] Marilia Podlogar RECORD TESTER.SUPERVISOR REMELT Work Phone: [facility] 06-16-2023 11:38-0500 Diastolic blood pressure 97 mm[Hg] Marilia Podlogar RECORD TESTER.SUPERVISOR REMELT Work Phone: [facility] 06-16-2023 11:38-0500 Heart rate 66 /min Marilia Podlogar RECORD TESTER.SUPERVISOR REMELT Work Phone: [facility] 06-16-2023 11:38-0500 Systolic blood pressure 161 mm[Hg] Marilia Podlogar RECORD TESTER.SUPERVISOR REMELT Work Phone: [facility] 06-16-2023 10:49-0500 Body weight 133.81 kg Marilia Podlogar RECORD TESTER.SUPERVISOR REMELT Work Phone: [facility] 06-16-2023 10:49-0500 Respiratory rate 18 /min Marilia Podlogar RECORD TESTER.SUPERVISOR REMELT Work Phone: [facility] 06-16-2023 10:49-0500 SaO2% (BldA) [Mass fraction] 97 % Marilia Podlogar RECORD TESTER.SUPERVISOR REMELT Work Phone: [facility] 11-02-2022 08:38-0400 Body weight 132.27 kg Marilia Podlogar RECORD TESTER.SUPERVISOR REMELT Work Phone: [facility] 11-02-2022 08:38-0400 Diastolic blood pressure 86 mm[Hg] Marilia Podlogar RECORD TESTER.SUPERVISOR REMELT Work Phone: [facility] 11-02-2022 08:38-0400 Heart rate 60 /min Marilia Podlogar RECORD TESTER.SUPERVISOR REMELT Work Phone: [facility] 11-02-2022 08:38-0400 Respiratory rate 18 /min Marilia Podlogar RECORD TESTER.SUPERVISOR REMELT Work Phone: [facility] 11-02-2022 08:38-0400 SaO2% (BldA) [Mass fraction] 96 % Marilia Podlogar RECORD TESTER.SUPERVISOR REMELT Work Phone: [facility] 11-02-2022 08:38-0400 Systolic blood pressure 132 mm[Hg] Marilia Podlogar RECORD TESTER.SUPERVISOR REMELT Work Phone: [facility] 05-23-2022 11:01-0500 Body temperature 97.59 [degF] Cole Almanza MD Work Phone: [facility] 05-23-2022 11:01-0500 Body weight 127.46 kg Cole Almanza MD Work Phone: [facility] 05-23-2022 11:01-0500 Diastolic blood pressure 76 mm[Hg] Cole Almanza MD Work Phone: [facility] 05-23-2022 11:01-0500 Heart rate 94 /min Cole Almanza MD Work Phone: [facility] 05-23-2022 11:01-0500 Respiratory rate 18 /min Cole Almanza MD Work Phone: [facility] 05-23-2022 11:01-0500 SaO2% (BldA) [Mass fraction] 97 % Cole lAmanza MD Work Phone: [facility] 05-23-2022 11:01-0500 Systolic blood pressure 122 mm[Hg] Cole Almanza MD Work Phone: [facility] 04-13-2022 10:17-0500 Diastolic blood pressure 84 mm[Hg] Agnes Diaz MD Work Phone: [facility] 04-13-2022 10:17-0500 Systolic blood pressure 138 mm[Hg] Agnes Diaz MD Work Phone: [facility] 04-13-2022 09:20-0500 Body height 177.8 cm Agnes Diaz MD Work Phone: [facility] 04-13-2022 09:20-0500 Body weight 128.37 kg Agnes Diaz MD Work Phone: [facility] 04-13-2022 09:20-0500 Heart rate 62 /min Agnes Diaz MD Work Phone: [facility] 04-13-2022 09:20-0500 Respiratory rate 18 /min Agnes Diaz MD Work Phone: [facility] 02-11-2022 08:48-0400 Body temperature 97.11 [degF] Wade Marquez Jr., MD Work Phone: [facility] 02-11-2022 08:48-0400 Body weight 124.74 kg Wade Marquez Jr., MD Work Phone: [facility] 02-11-2022 08:48-0400 Diastolic blood pressure 73 mm[Hg] Wade Marquez Jr., MD Work Phone: [facility] 02-11-2022 08:48-0400 Heart rate 78 /min Wade Marquez Jr., MD Work Phone: [facility] 02-11-2022 08:48-0400 Respiratory rate 18 /min Wade Marquez Jr., MD Work Phone: [facility] 02-11-2022 08:48-0400 SaO2% (BldA) [Mass fraction] 97 % Wade Marquez Jr., MD Work Phone: [facility] 02-11-2022 08:48-0400 Systolic blood pressure 120 mm[Hg] Wade Marquez Jr., MD Work Phone: [facility] 12-08-2021 11:00-0400 Diastolic blood pressure 86 mm[Hg] Yogesh Golias PT Work Phone: [facility] 12-08-2021 11:00-0400 Systolic blood pressure 124 mm[Hg] Yogesh Golias PT Work Phone: [facility] 11-11-2021 09:32-0400 Body temperature 97.39 [degF] Tri Athy PA-C Work Phone: [facility] 11-11-2021 09:32-0400 Body weight 130.64 kg Tri Athy PA-C Work Phone: [facility] 11-11-2021 09:32-0400 Diastolic blood pressure 90 mm[Hg] Tri Athy PA-C Work Phone: [facility] 11-11-2021 09:32-0400 Heart rate 72 /min Tri Athy PA-C Work Phone: [facility] 11-11-2021 09:32-0400 Respiratory rate 20 /min Tri Athy PA-C Work Phone: [facility] 11-11-2021 09:32-0400 SaO2% (BldA) [Mass fraction] 97 % Tri Athy PA-C Work Phone: [facility] 11-11-2021 09:32-0400 Systolic blood pressure 140 mm[Hg] Tri Hylton PA-C Work Phone: [facility] 1945 00:00-0400 >na< Bruna Chowdary Dept. of Dermatology Encounters Encounter Date Encounter Type Care Provider Facility Start: 10-09-2024 End: 10-10-2024 Follow-up encounter Ree Ram LPN [facility] Comment on above: Xray Results Start: 10-08-2024 End: 10-08-2024 Subsequent hospital visit by physician Radha [facility] Work Phone: Radiology Comment on above: Left hand pain [M79. 642] Start: 10-08-2024 End: 10-08-2024 Patient encounter procedure Marilia Orozco RECORD TESTER.SUPERVISOR REMELT Work Phone: [facility] [place] Comment on above: Left hand pain (Prim delia Dx); Left wrist pain Start: 10-08-2024 End: 10-08-2024 ambulatory AGNES DIAZ Facility:[facility] Start: 10-07-2024 ambulatory Alex Sher Facility :[facility] Start: 10-07-2024 Non-patient / Non-visit Alex Calix nd DO -H-[facility] Start: 10-07-2024 End: 10-07-2024 Admission to same day surgery center Alex Sher DO -Endoscopy Work Phone: Start: 10-07-2024 End: 10-07-[address] Salvador Diaz MD Work Phone: [facility] Work Phone: Start: 09-25-2024 End: 09-25-2024 Office outpatient visit 25 minutes Victor Manuel Savage DO Work Phone: Pulmonology Comment on above: History of pulmonary embolism (Primary Dx); BMI 38.0-38.9,adult; History of venous thromboembolism; Stage 3a chronic kidney disease (HCC); Venous insufficiency (chronic) (peripheral) Start: 09-25-2024 End: 09-25-2024 ambulatory AGNES DIAZ Facility:[facility] Start: 09-17-2024 End: 09-17-[address] Isaias Velez MD -[facility] Start: 09-17-2024 End: 09-17-[address] Salvador Diaz MD Work Phone: [facility] Work Phone: Start: 08-31-2024 End: 08-31-2024 Emergency department patient visit Dr. Isaias Trivedi MD -Emergency Department Work Phone: Start: 08-31-2024 End: 08-31-2024 ambulatory COLE ALMANZA Facility:[facility] Start: 08-31-2024 End: 08-31-2024 Patient encounter procedure Cole Almanza MD Work Phone: [facility] Comment on above: Abdominal pain, unsp ecified abdominal location (Primary Dx) Start: 08-27-2024 End: 08-27-2024 Telephone encounter Agnes Diaz MD Work Phone: [facility] Comment on above: medication form (Ant icoagulant authorization form) Start: 08-16-2024 End: 08-16-2024 Follow-up encounter Marilia Orozco APRN.CNP Work Phone: [facility] Comment on above: Results Start: 08-15-2024 End: 08-15-2024 ambulatory AGNES DIAZ Facility:[facility] Start: 08-13-2024 End: 08-13-2024 Patient encounter procedure Marilia Orozco APRN.CNP Work Phone: [facility] [place] Comment on above: Essential hypertensi on, benign (Primary Dx); Pulmonary HTN (HCC); MARTIN (obstructive sleep apnea); Prediabetes; Hyperlipidemia LDL goal <100; Obesity, Class III, 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); Acquired hypothyroidism; Stage 3b chronic kidney disease (HCC); History of pulmonary embolus (PE) Start: 08-13-2024 End: 08-13-2024 ambulatory GANES DIAZ Facility:[facility] Start: 08-12-2024 End: 08-12-2024 Refill Agnes Diaz MD Work Phone: [facility] Comment on above: Refill Request Start: 08-07-2024 End: 08-07-2024 ambulatory Morelia Munguia [facility] Start: 08-07-2024 End: 08-07-2024 Patient encounter procedure Morelia Hugginsaguila [facility] Comment on above: Population Health Na vigation Outreach ([facility]/Workbench/ACO ) Start: 07-26-2024 End: 07-26-2024 Refill Agnes Diaz MD Work Phone: [facility] Comment on above: Refill Request Start: 07-23-2024 End: 07-23-2024 Patient encounter procedure Alex Sher DO [facility] Work Phone: Start: 07-23-2024 End: 07-23-2024 ambulatory Salvador Diaz Facility:[facility] Start: 07-04-2024 ambulatory Alex Sher Facility :[facility] Start: 07-04-2024 End: 07-04-2024 Admission to same day surgery center Alex Sher DO -Endoscopy Work Phone: Start: 07-04-2024 End: 07-04-[address] Salvador Diaz MD Work Phone: [facility] Work Phone: Start: 07-04-2024 Non-patient / Non[facility]visit [facility]ix nd[facility] Start: 06-24-2024 End: 06-28-2024 Telephone encounter Victor Manuel Savage DO Work Phone: Pulmonology [facility] Comment on above: Appointment Start: 05-21-2024 End: 05-22-2024 Refill Agnes Diaz MD Work Phone: [facility] [place] Comment on above: Refill Request Start: 04-16-2024 End: 04-16-2024 Patient encounter procedure Alex Sher -[facility] Work Phone: Start: 04-16-2024 End: 04-16-2024 ambulatory Alex Sher Facility:[facility] Start: 04-12-2024 End: 04-13-2024 Refill Agnes Diaz MD Work Phone: [facility] Comment on above: Refill Request Start: 04-08-2024 End: 04-08-2024 Patient Outreach Mitchel Walters RN Work Phone: Orthotist [facility] Prosthetist Management Comment on above: Weekly phone contact (Recurring) for Transitional Care Management Start: 04-01-2024 End: 04-01-2024 Patient encounter procedure Marilia Ernesto RECORD TESTER.SUPERVISOR REMELT Work Phone: [facility] Comment on above: Hospital discharge f ollow-up (Primary Dx); Calculus of bile duct without cholecystitis with obstruction; Fall in home, subsequent encounter; Traumatic ecchymosis of abdominal wall, subsequent encounter Start: 04-01-2024 End: 04-01-2024 ambulatory AGNES DIAZ Facility:[facility] Start: 03-29-2024 End: 03-29-2024 Patient Outreach Mitchel Walters RN Work Phone: Orthotist [facility] Prosthetist Management Comment on above: Transition Of Care ( TCM / [facility] [place] [facility] dc 03/28/24) Initial phone contact for Transitional Care Management Start: 03-28-2024 Non-patient / Non-visit Dr. Altagracia Lo MD -[facility] Work Phone: Start: 03-28-2024 Non-patient / Non-visit Dr. Deena Avalos MD -[facility] Start: 03-27-2024 ambulatory Alex Sher Facility :[facility] Start: 03-27-2024 Non-patient / Non-visit Dr. Altagracia Lo MD -[facility] Work Phone: Start: 03-26-2024 Non-patient / Non-visit Alex Calix nd DO -[facility] Start: 03-26-2024 ambulatory Andrea Serrano Fac ility:[facility] Start: 03-26-2024 End: 03-28-2024 Evaluation and management of inpatient Dr. Altagracia Lo MD -Progressive Care Unit Work Phone: Start: 03-18-2024 End: 03-18-2024 Refill Agnes Diaz MD Work Phone: [facility] Comment on above: Refill Request Start: 02-23-2024 End: 02-23-2024 ambulatory AGNES DIAZ Facility:[facility] Start: 02-23-2024 End: 02-23-2024 Subsequent hospital visit by physician Xr [facility] [place] Work Phone: Radiology Start: 02-21-2024 End: 02-21-2024 Refill Victor Manuel Savage DO Work Phone: Pulmonology [facility] Comment on above: Refill Request Start: 02-14-2024 End: 02-14-2024 Patient encounter procedure Marilia Orozco APRN.SUPERVISOR REMELT Work Phone: [facility] Comment on above: Upper back pain (Jory flaquito Dx); Immunization due; Right leg swelling Start: 02-14-2024 End: 02-14-2024 ambulatory AGNES DIAZ Facility:[facility] Start: 02-08-2024 End: 02-08-2024 Telephone encounter Marilia Orozco APRN.SUPERVISOR REMELT Work Phone: [facility] Comment on above: Hillary cellulitis Start: 01-29-2024 End: 01-29-2024 Patient encounter procedure Marilia Orozco APRN.SUPERVISOR REMELT Work Phone: [facility] Comment on above: Cellulitis of right leg (Primary Dx); Tear of medial meniscus of right knee, current, unspecified tear type, initial encounter; Right leg swelling Start: 01-29-2024 End: 01-29-2024 ambulatory AGNES DIAZ Facility:[facility] Start: 01-26-2024 End: 01-26-2024 Emergency department patient visit Leo Jade Facility:[facility] Start: 01-26-2024 End: 01-26-2024 ambulatory AGNES DIAZ Facility:[facility] Start: 01-26-2024 End: 01-26-2024 Subsequent hospital visit by physician [facility] (I-Stat/3t) [facility] Comment on above: Acute pain of right knee [M25.561] Start: 01-24-2024 End: 01-24-2024 Patient encounter procedure Marilia Orozco APRN.SUPERVISOR REMELT Work Phone: [facility] [place] Comment on above: Pain and swelling of right lower leg (Primary Dx); Acute pain of right knee Start: 01-24-2024 End: 01-24-2024 ambulatory AGNES DIAZ Facility:[facility] Start: 01-22-2024 End: 01-22-2024 Telephone encounter Agnes Diaz MD Work Phone: [facility] Comment on above: Results Start: 01-22-2024 End: 01-22-2024 Patient encounter procedure Agnes Diaz MD Work Phone: [facility] Comment on above: Pain and swelling of right lower leg (Primary Dx); Cellulitis of skin Start: 01-22-2024 End: 01-22-2024 ambulatory AGNES DIAZ Facility:[facility] Start: 01-19-2024 ambulatory AGNES DIAZ F acility:[facility] Start: 01-19-2024 End: 01-19-2024 Subsequent hospital visit by physician [facility] Work Phone: Radiology Comment on above: Pain and swelling of right lower leg [M79.661, M79.89] Start: 01-19-2024 End: 01-19-2024 Patient encounter procedure Marilia Orozco APRN.SUPERVISOR REMELT Work Phone: [facility] [place] Comment on above: Pain and swelling of right lower leg (Primary Dx) Start: 01-19-2024 End: 01-19-2024 ambulatory AGNES DIAZ Facility:[facility] Start: 01-18-2024 End: 01-18-2024 ambulatory AGNES DIAZ Facility:[facility] Start: 01-18-2024 End: 01-18-2024 Subsequent hospital visit by physician Radha [facility] [place] Work Phone: Radiology Comment on above: Acute pain of right knee [M25.561] Start: 01-18-2024 End: 01-18-2024 Patient encounter procedure Joleen Munoz APRN.SUPERVISOR REMELT Work Phone: [facility] Comment on above: Pain (Primary Dx) Start: 01-18-2024 End: 01-18-2024 Office outpatient visit 25 minutes Victor Manuel Savage DO Work Phone: Pulmonology Comment on above: Acute pain of right knee (Primary Dx); History of pulmonary embolism; BMI 38.0-38.9,adult; History of venous thromboembolism; Stage 3a chronic kidney disease (HCC); MARTIN (obstructive sleep apnea) Start: 01-18-2024 End: 01-18-2024 ambulatory VICTOR MANUEL SAVAGE Facility:[facility] Start: 01-17-2024 End: 01-17-2024 ambulatory Yogesh Forman PT Work Phone: [facility] Comment on above: Unsteady gait (Prima ry Dx) Start: 01-16-2024 End: 01-16-2024 ambulatory AGNES DIAZ Facility:[facility] Start: 01-16-2024 End: 01-16-2024 Patient encounter procedure Echocardiogram Peña Work Phone: Cardiology Comment on above: Other secondary pulm onary hypertension (HCC); History of pulmonary embolism Start: 01-15-2024 End: 01-15-2024 Office outpatient visit 15 minutes Bruna Chowdary APRN-SUPERVISOR REMELT Work Phone: [facility] Comment on above: Xerosis cutis (Prima ry Dx); Xerosis cutis; Multiple benign nevi; Lentigo; Seborrheic keratosis Start: 01-15-2024 End: 01-15-2024 [facility] Start: 01-10-2024 End: 01-19-2024 Telephone encounter Agnes Diaz MD Work Phone: [facility] Comment on above: Disc Request Start: 01-10-2024 End: 01-10-2024 ambulatory Yogesh Golias PT Work Phone: [facility] Comment on above: Unsteady gait (Prima ry Dx) Start: 01-08-2024 End: 01-08-2024 ambulatory Tabby Gibbs EDGE BANDING OFF BEARER Work Phone: [facility] Comment on above: Unsteady gait (Prima ry Dx) Start: 01-06-2024 End: 01-08-2024 Refill Agnes Diaz MD Work Phone: [facility] Comment on above: Refill Request Start: 01-04-2024 End: 01-04-2024 ambulatory Yogesh Golias PT Work Phone: 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 Comment on above: Unsteady gait (Prima ry Dx); Unsteady gait when walking Start: 11-27-2023 Telephone encounter Sidra Pepe MD Work Phone: Vascular Medicine Comment on above: Appointment Start: 11-22-2023 End: 11-22-2023 Refill Victor Manuel Savage DO Work Phone: Pulmonology Comment on above: Refill Request Other secondary pulm onary hypertension (HCC) [I27.29] Start: 11-09-2023 End: 11-09-2023 Office outpatient new 45 minutes Kevinab Lopezvlad DO Work Phone: Pulmonology Comment on above: Other secondary pulm onary hypertension (HCC) (Primary Dx); History of pulmonary embolism Start: 11-09-2023 End: 11-09-2023 [facility] Start: 11-06-2023 ambulatory Leonila Triana RN Work Phone: Orthotist [facility] Prosthetist Management Start: 11-06-2023 Telephone encounter Salvador Diaz MD Work Phone: [facility] [place] Comment on above: Forms (FMLA paperwor k for patient's spouse) Start: 11-06-2023 Telephone follow-up Leonila holguin RN Work Phone: Orthotist [facility] Prosthetist Management Comment on above: Transition Of Care ( tcm d/c follow up ) Weekly phone contact (Recurring) for Transitional Care Management Start: 11-01-2023 Telephone encounter Salvador Diaz MD Work Phone: [facility] [place] Comment on above: Patient Update Start: 10-31-2023 Telephone encounter Salvador Diaz MD Work Phone: [facility] [place] Comment on above: [facility]- verbal orders Start: 10-30-2023 End: 10-30-2023 ambulatory Leonila Triana RN Work Phone: Orthotist [facility] Prosthetist Management Start: 10-30-2023 End: 10-30-2023 Patient encounter procedure Agnes Diaz MD Work Phone: [facility] [place] Comment on above: Acute saddle pulmona ry embolism, unspecified whether acute cor pulmonale present (HCC) (Primary Dx); Pulmonary HTN (HCC); Acute deep vein thrombosis (DVT) of proximal vein of right lower extremity (HCC); Essential hypertension, benign; MARTIN (obstructive sleep apnea); Right leg swelling Transition Of Care ( /Value-Based TCM Initial - No Text ) Transition Of Care ( /Value-Based TCM Initial - No Text ) Initial phone contact for Transitional Care Management Start: 10-26-2023 Telephone encounter Salvaodr Diaz MD Work Phone: [facility] Comment on above: Patient Update Start: 10-23-2023 Evaluation and management of inpatient DIVYAADELIA RODRIGUEZ Facility:[facility] Start: 10-22-2023 End: 10-23-2023 Emergency department patient visit Ana Fragoso Facility:[facility] Start: 10-09-2023 End: 10-09-2023 Patient encounter procedure Sherrell Rouse RECORD TESTER.SUPERVISOR REMELT Work Phone: [facility] Comment on above: Rash (Primary Dx) Start: 09-27-2023 Refill Agnes Diaz MD Work Phone: [facility] Comment on above: Refill Request Start: 09-04-2023 Refill Agnes Diaz MD Work Phone: [facility] Comment on above: Refill Request Start: 08-01-2023 End: 08-01-2023 Patient encounter procedure Marilia Orozco APRN.SUPERVISOR REMELT Work Phone: [facility] Comment on above: Essential hypertensi on, benign (Primary Dx); Prediabetes Start: 07-07-2023 Telephone encounter Salvador Diaz MD Work Phone: [facility] Comment on above: Medication Request Start: 07-01-2023 End: 07-01-2023 ambulatory [facility] Work Phone: Start: 07-01-2023 End: 07-01-2023 Patient encounter procedure [facility] Work Phone: Start: 06-22-2023 Telephone encounter Salvador Diza MD Work Phone: [facility] Comment on above: Orders Start: 06-16-2023 End: 06-16-2023 Patient encounter procedure Marilia Orozco RECORD TESTER.SUPERVISOR REMELT Work Phone: [facility] Comment on above: Essential hypertensi on, benign (Primary Dx) Start: 05-15-2023 End: 05-15-2023 Subsequent hospital visit by physician Radha [facility] [place] Work Phone: Radiology Comment on above: 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, 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, G89.29] Start: 03-20-2023 Refill Amanda rodriges APRN.SUPERVISOR REMELT Work Phone: [facility] Comment on above: Refill Request Start: 03-13-2023 ambulatory Anusha Trevino [facility] [place] Comment on above: Population Health Na vigation Outreach ([facility]) Start: 03-07-2023 Refill Agnes Diaz MD Work Phone: [facility] Comment on above: Refill Request Start: 02-07-2023 Refill Agnes Diaz MD Work Phone: Radiology Comment on above: Refill Request Start: 01-23-2023 Telephone encounter Wade Marquez MD Work Phone: Neurology Comment on above: Orders Start: 01-05-2023 ambulatory Bruna Chowdary Facility:[id number] Start: 01-05-[address] Macario villa Cebul III Facility:[id number] Start: 01-05-2023 Office outpatient vi sit 15 minutes Bruna Chowdary Dept. of Dermatology Start: 12-29-2022 End: 12-29-2022 ambulatory Yogesh Golias PT Work Phone: [facility] Comment on above: 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) Start: 12-27-2022 End: 12-27-2022 ambulatory Yogesh Golias PT Work Phone: [facility] Comment on above: 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) Start: 12-22-2022 End: 12-22-2022 ambulatory Yogesh Golias PT Work Phone: [facility] Comment on above: 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) Start: 12-16-2022 End: 12-16-2022 ambulatory Yogesh Golias PT Work Phone: [facility] Comment on above: 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) Start: 12-08-2022 End: 12-08-2022 Refill Agnes Diaz MD Work Phone: [facility] Comment on above: 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) Start: 12-06-2022 End: 12-06-2022 ambulatory Yogesh Golias PT Work Phone: [facility] Comment on above: 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) Start: 12-01-2022 End: 12-01-2022 ambulatory Yogesh Golias PT Work Phone: [facility] Comment on above: 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) Start: 11-29-2022 End: 11-29-2022 ambulatory Sherrell O'Himanshu PT [facility] Comment on above: 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) Start: 11-09-2022 Telephone encounter Marilia francis APRN.SUPERVISOR REMELT Work Phone: [facility] Comment on above: Results Start: 11-07-2022 End: 11-07-2022 Patient encounter procedure Echocardiogram Wstr Work Phone: Cardiology Comment on above: Essential hypertensi on, benign; Stage 3b chronic kidney disease (HCC); Bilateral leg edema; ASHD (arteriosclerotic heart disease) Start: 11-03-2022 Telephone encounter Salvador Diaz MD Work Phone: [facility] Comment on above: Results Start: 11-02-2022 End: 11-02-2022 Patient encounter procedure Marilia Orozco APRN.SUPERVISOR REMELT [facility] Comment on above: Essential hypertensi on, benign (Primary Dx); Hyperlipidemia LDL goal <100; Prediabetes; Acquired hypothyroidism; Stage 3b chronic kidney disease (HCC); Chronic bilateral low back pain with bilateral sciatica; Obesity, Class III, 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 [place] Comment on above: Medication Request Start: 05-23-2022 End: 05-23-2022 Patient encounter procedure Cole Almanza MD Work Phone: [facility] Comment on above: URI, acute (Primary Dx) Start: 05-11-2022 Refill Agnes Diaz MD Work Phone: [facility] Comment on above: Refill Request; Refi ll Request Start: 04-13-2022 End: 04-13-2022 Patient encounter procedure Agnes Diaz MD Work Phone: [facility] Comment on above: Medicare annual well ness visit, subsequent (Primary Dx); Essential hypertension, benign; Stage 3b chronic kidney disease (HCC); Obesity, Class III, 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 Comment on above: 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); Personal history of fall; Age-related physical debility Start: 01-31-2022 End: 01-31-2022 ambulatory Tabby Gibbs EDGE BANDING OFF BEARER Work Phone: [facility] Comment on above: 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); Personal history of fall; Age-related physical debility Start: 01-24-2022 End: 01-24-2022 ambulatory Yogesh GolFanium PT Work Phone: [facility] Comment on above: 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); Personal history of fall; Age-related physical debility Start: 01-20-2022 End: 01-20-2022 ambulatory Tabby Gibbs EDGE BANDING OFF BEARER Work Phone: [facility] Comment on above: 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); Personal history of fall; Age-related physical debility Start: 01-17-2022 End: 01-17-2022 ambulatory Tabby Gibbs EDGE BANDING OFF BEARER Work Phone: [facility] Comment on above: 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); Personal history of fall; Age-related physical debility Start: 01-12-2022 End: 01-12-2022 ambulatory Yogesh Golias PT Work Phone: [facility] Comment on above: 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); Personal history of fall; Age-related physical debility Start: 01-10-2022 End: 01-10-2022 ambulatory Yogesh Golias PT Work Phone: [facility] Comment on above: 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); Personal history of fall; Age-related physical debility Start: 01-04-2022 End: 01-04-2022 ambulatory Tabby Gibbs EDGE BANDING OFF BEARER Work Phone: [facility] Comment on above: 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); Personal history of fall; Age-related physical debility Start: 12-31-2021 Office outpatient vi sit 15 minutes Bruna Chowdary Dept. of Dermatology Start: 12-29-2021 End: 12-29-2021 ambulatory Xiao Humphrey EDGE BANDING OFF BEARER Work Phone: [facility] Comment on above: 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); Personal history of fall; Age-related physical debility Start: 12-27-2021 End: 12-27-2021 ambulatory Xiao Humphrey EDGE BANDING OFF BEARER Work Phone: [facility] Comment on above: 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); Personal history of fall; Age-related physical debility Start: 12-20-2021 End: 12-20-2021 ambulatory Yogesh Golias PT Work Phone: [facility] Comment on above: 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); Personal history of fall; Age-related physical debility Start: 12-17-2021 Refill Agnes Diaz MD Work Phone: [facility] Comment on above: Refill Request Start: 12-08-2021 End: 12-08-2021 ambulatory Yogesh Golias PT Work Phone: [facility] Comment on above: Chronic bilateral lo w back pain with bilateral sciatica; At high risk for falls; Age-related physical debility; Personal history of fall Start: 12-02-2021 Telephone encounter Salvador Diaz MD Work Phone: [facility] Comment on above: Results Start: 11-11-2021 End: 11-11-2021 Patient encounter procedure Tri Hylton PA-C Work Phone: [facility] Comment on above: Acute otitis externa of right ear, unspecified type (Primary Dx) Start: 10-19-2021 End: 10-19-2021 Nursing evaluation of patient and report Mi Nurse Work Phone: [facility] Comment on above: Need for vaccination (Primary Dx) Start: 10-19-2021 Telephone encounter Salvador Diaz MD Work Phone: [facility] [place] Comment on above: Orders Start: 10-05-2021 Refill Agnes Diaz MD Work Phone: [facility] Comment on above: Patient Question; Re fill Request Start: 07-14-2021 Telephone encounter Marilia francis SUPERVISOR REMELT Work Phone: [facility] [place] Comment on above: Orders Start: 01-01-2021 Office outpatient vi sit 15 minutes Bruna Bort Dept. of Dermatology Start: 01-03-2020 Office outpatient vi sit 15 minutes Bruna Bort Dept. of Dermatology Start: 05-13-2019 Preprocedural examination done Agnes Diaz MD Work Phone: [facility] Work Phone: Start: 01-04-2019 Office outpatient vi sit 15 minutes Bruna Bort Dept. of Dermatology Start: 01-04-2019 Office outpatient vi sit 25 minutes Bruna Bort Dept. of Dermatology Start: 11-22-2017 Office outpatient vi sit 15 minutes Bruna Bort Dept. of Dermatology Start: 11-22-2017 Office outpatient vi sit 25 minutes Bruna Bort Dept. of Dermatology Start: 02-28-2017 Office outpatient vi sit 15 minutes Bruna Bort Dept. of Dermatology Start: 02-28-2017 Office outpatient vi sit 25 minutes Bruna Bort Dept. of Dermatology Start: 02-11-2016 Office outpatient vi sit 15 minutes Bruna Bort Dept. of Dermatology Start: 03-09-2015 Office outpatient vi sit 15 minutes Bruna Bort Dept. of Dermatology Start: 03-09-2015 Office outpatient vi sit 25 minutes Bruna Bort Dept. of Dermatology Start: 02-14-2014 Office outpatient vi sit 15 minutes Bruna Chowdary Dept. of Dermatology Procedures Date Procedure Procedure Detail Performing Clinician Start: 10-08-2024 Radex hand minimum 3 views Marilia rascon RECORD TESTER.SUPERVISOR REMELT Work Phone: Start: 10-07-[address] Salvador Diaz MD Work Phone: Start: 10-07-[address] Salvador Diaz MD Work Phone: Start: 09-17-2024 X-ray of lumbosacral spine Dr. Elmer Diaz MD Work Phone: Start: 08-31-2024 Urnls dip stick/tablet reagent auto microscopy Dr. Salvador Diaz MD Work Phone: Start: 08-31-[address] Yash Diaz MD Work Phone: Start: 08-31-2024 Computed tomography of abdomen and pelvis with intravenous contrast Dr. Salvador Diaz MD Work Phone: Start: 07-04-2024 End: 07-04-[address] Salvador Diaz MD Work Phone: Start: 07-04-[address] Salvador Diaz MD Work Phone: Start: 03-27-[address] Salvador Diaz MD Work Phone: Start: 03-27-[address] Salvador Diaz MD Work Phone: Start: 03-27-[address] Salvador Diaz MD Work Phone: Start: 03-26-[address] Salvador Diaz MD Work Phone: Start: 03-26-2024 US scan of gallbladder Dr. Salvador Diaz MD Work Phone: Start: 03-26-2024 Computed tomography of abdomen and pelvis with intravenous contrast Dr. Salvador Diaz MD Work Phone: Start: 03-26-2024 CT of head without contrast Dr. Melissa Diaz MD Work Phone: Start: 02-14-2024 PFIZER-BIONTECH COVID-19 VACCINE AGE 12+ YR (COMIRNATY) Marilia Podlogar RECORD TESTER.SUPERVISOR REMELT Work Phone: Start: 01-26-2024 Mri any jt lower extrem w/o contrast matrl Marilia Podlogar RECORD TESTER.SUPERVISOR REMELT Work Phone: Start: 01-19-2024 Dup-scan xtr veins unilateral/limited study Marilia Podlogar RECORD TESTER.SUPERVISOR REMELT Work Phone: Start: 01-16-2024 Echo tthrc r-t 2d w/wom-mode compl spec&colr d Avril Ankit DO Work Phone: Start: 11-22-2023 Pulmonary ventilation & perfusion imaging Avril Pham DO Work Phone: Start: 07-01-2023 MRI of lumbar spine Start: 05-15-2023 Radex spine lumbosacral 2/3 views Marilia Podlogar RECORD TESTER.SUPERVISOR REMELT Work Phone: Start: 01-05-2023 Tangential biopsy skin single lesion Bruna Chowdary Start: 11-07-2022 Echo tthrc r-t 2d w/wom-mode compl spec&colr d Marilia Podlogar RECORD TESTER.SUPERVISOR REMELT Work Phone: Start: 11-07-2022 LVEF TRANSTHORACIC ECHO Marilia Podlogar RECORD TESTER.SUPERVISOR REMELT Work Phone: Start: 12-01-2021 Adult depression screening assessment Agnes Diaz MD Work Phone: Start: 07-30-2020 Adult depression screening assessment Agnes Diaz MD Work Phone: Start: 11-22-2017 Destruction benign lesions up to 14 Bruna Chowdary Start: 11-22-2017 Established Office Visit Level 4 Bruna Chowdary Start: 02-11-2016 Destruction premalignant lesion 1st Bruna Chowdary Start: 03-09-2015 Bx skin subcutaneous&/mucous membrane 1 lesion Bruna Chowdary Start: 03-09-2015 Established Office Visit Level 4 Bruna Chowdary History of decompres kenny of median nerve S/P carpal tunnel release Dr. Salvador Diaz MD Work Phone: Comment on above: Bilateral. Plan of Treatment Date Care Activity Detail Author Start: 07-31-2029 DTaP/Tdap/Td Vaccines (3 - Td or Tdap) DTaP/Tdap/Td Vaccines (3 - Td or Tdap) [facility] Start: 07-31-2029 Urine microalbumin profile [facility] Start: 08-16-2027 Diabetes Screening Diabetes Screening [facility] Start: 10-26-2026 Diabetes Screening Diabetes Screening [facility] Start: 10-25-2026 Diabetes Screening Diabetes Screening [facility] Start: 07-31-2026 Diabetes Screening Diabetes Screening [facility] Start: 05-15-2026 Diabetes Screening Diabetes Screening [facility] Start: 11-02-2025 DIABETES SCREEN DIABETES SCREEN [facility] Start: 11-02-2025 Diabetes Screening Diabetes Screening [facility] Start: 10-08-2025 Annual PCP Team Chronic Disease Visit Annual PCP Team Chronic Disease Visit [facility] Start: 10-08-2025 BP Controlled (<130/80) BP Controlled (<130/80) [facility] Start: 08-15-2025 Creatinine measurement Serum Creatinine [facility] Start: 08-15-2025 Hepatitis B surface antibody level LDL Cholesterol [facility] Start: 08-13-2025 Annual PCP Team Chronic Disease Visit Annual PCP Team Chronic Disease Visit [facility] Start: 04-13-2025 DIABETES SCREEN DIABETES SCREEN [facility] Start: 04-01-2025 Annual PCP Team Chronic Disease Visit Annual PCP Team Chronic Disease Visit [facility] Start: 02-13-2025 Annual PCP Team Chronic Disease Visit Annual PCP Team Chronic Disease Visit [facility] Start: 02-12-2025 End: 02-12-2025 Patient encounter procedure 02/12/2025 3:00 PM EDT Office Visit [facility] [place] [address] [place] [address] Marilia Orozco APRN.SUPERVISOR REMELT [address] [place] [address] 6 month follow up [facility] [place] Comment on above: 6 month follow up Start: 01-28-2025 Annual PCP Team Chronic Disease Visit Annual PCP Team Chronic Disease Visit [facility] Start: 01-24-2025 End: 01-24-2025 Patient encounter procedure 01/24/2025 11:00 AM EDT Office Visit [address] [place] [address] [place] [id number] Bruna Chowdary APRN-SUPERVISOR REMELT [address] [facility] [address] [place] [address] [facility] Start: 01-23-2025 Annual PCP Team Chronic Disease Visit Annual PCP Team Chronic Disease Visit [facility] Start: 01-21-2025 Annual PCP Team Chronic Disease Visit Annual PCP Team Chronic Disease Visit [facility] Start: 01-21-2025 BP Controlled (<130/80) BP Controlled (<130/80) [facility] Start: 01-18-2025 Annual PCP Team Chronic Disease Visit Annual PCP Team Chronic Disease Visit [facility] Start: 01-18-2025 Complete blood count Hemoglobin/Hematocrit [facility] Start: 01-17-2025 BP Controlled (<130/80) BP Controlled (<130/80) [facility] Start: 12-01-2024 DIABETES SCREEN DIABETES SCREEN [facility] Start: 10-29-2024 Annual PCP Team Chronic Disease Visit Annual PCP Team Chronic Disease Visit [facility] Start: 10-26-2024 Creatinine measurement Serum Creatinine [facility] Start: 10-25-2024 Complete blood count Hemoglobin/Hematocrit [facility] Start: 10-25-2024 Creatinine measurement Serum Creatinine [facility] Start: 10-22-2024 Diabetes mellitus screening Diabetes Screening [facility] Start: 10-22-2024 Hemoglobin A1c measurement Diabetes: Hemoglobin A1C [facility] Start: 10-22-2024 End: 10-22-2024 ambulatory Pulmonology [facility] Comment on above: 9 MONTH F/U Start: 10-21-2024 End: 10-21-2024 ambulatory 10/21/2024 1:00 PM EDT [facility] Pulmonary Medicine [address] [place] [address] [place] [address] [place] [address] 9 MONTH F/U Pulmonary Medicine Comment on above: 9 MONTH F/U Start: 10-07-2024 Endoscopic retrograde cholangiopancreatography ERCP Biliary/Pancreas [facility] Start: 10-07-2024 RF Guidance for endoscopy of Biliary ducts and Pancreatic duct-- W contrast retrograde [facility] Start: 10-07-2024 Patient discharge [facility] Start: 09-27-2024 End: 12-27-2024 Thyrotropin [Units/volume] in Serum or Plasma THYROID STIMULATING HORMONE Lab Routine Acquired hypothyroidism Expected: 09/27/2024, Expires: 12/27/[address] [facility] Work Phone: Comment on above: Expected: 09/27/2024, Expires: Start: 09-27-2024 End: 09-27-2024 ambulatory 09/27/2024 9:00 AM EDT Results Only [facility] [address] [place] [address] [facility] Start: 09-25-2024 End: 09-25-2024 ambulatory 09/25/2024 8:30 AM EDT [facility] Pulmon[facility] [address] [place] [address] [place] [address] [place] [address] 9 MONTH F/U R/S from 10-21 Pulmonology Comment on above: 9 MONTH F/U R/S from 10-21 Start: 09-17-2024 X-ray of lumbosacral spine L/S Spine Min 4 Views [facility] Start: 09-17-2024 XR Spine Lumbar and Sacrum GE 4 Views [facility] Start: 08-31-2024 [facility] Start: 08-14-2024 Covid-19 Vaccine ( season) Covid-19 Vaccine ( season) [facility] Start: 08-13-2024 End: 11-12-2024 Comprehensive metabolic 2000 panel - Serum or Plasma COMPREHENSIVE METABOLIC PANEL Lab Routine Essential hypertension, benign Hyperlipidemia LDL goal <100 Stage 3b chronic kidney disease (HCC) Expected: 08/13/2024, Expires: 11/12/2024 [facility] Comment on above: Expected: 08/13/2024, Expires: Start: 08-13-2024 End: 11-12-2024 Hemoglobin A1c in Blood HEMOGLOBIN A1C Lab Routine Prediabetes Expected: 08/13/2024, Expires: 11/12/2024 [facility] Comment on above: Expected: 08/13/2024, Expires: Start: 08-13-2024 End: 11-12-2024 Lipid 1996 panel - Serum or Plasma LIPID PANEL, FASTING Lab Routine Hyperlipidemia LDL goal <100 Expected: 08/13/2024, Expires: 11/12/[address] [facility] Work Phone: Comment on above: Expected: 08/13/2024, Expires: Start: 08-13-2024 End: 11-12-2024 Thyrotropin [Units/volume] in Serum or Plasma THYROID STIMULATING HORMONE Lab Routine Acquired hypothyroidism Expected: 08/13/2024, Expires: 11/12/2024 [facility] Comment on above: Expected: 08/13/2024, Expires: Start: 08-13-2024 End: 08-13-2024 Patient encounter procedure 08/13/2024 11:40 AM EDT Office Visit [facility] [place] [address] [place] [address] PodlogarMarilia APRN.SUPERVISOR REMELT [address] [place] [address] annual wellness [facility] [place] Comment on above: annual wellness Start: 08-02-2024 End: 08-02-2024 Patient encounter procedure 08/02/2024 12:20 PM EDT Office Visit [facility] [place] [address] [place] [address] Agnes Diaz MD [address] [place] [address] Medicare wellness [facility] [place] Comment on above: Medicare wellness Start: 07-31-2024 Annual PCP Team Chronic Disease Visit Annual PCP Team Chronic Disease Visit [facility] Start: 07-12-2024 DIABETES SCREEN DIABETES SCREEN [facility] Start: 07-04-2024 Egd transoral biopsy single/multiple EGD BIOPSY SINGLE/MULTIPLE [facility] Start: 07-04-2024 Ercp remove calculi/debris biliary/pancreas duct ERCP REMOVE DUCT CALCULI [facility] Start: 07-04-2024 Ercp remove foreign body/stent biliary/panc duct ERCP REMOVE FORGN BODY DUCT [facility] Start: 07-04-2024 Ercp w/sphincterotomy/papillotomy ENDO CHOLANGIOPANCREATOGRAPH [facility] Start: 07-04-2024 Patient discharge [facility] Start: 07-02-2024 End: 07-02-2024 Patient encounter procedure 07/02/2024 12:30 PM EST Office Visit Vascular Medicine [address] [id number] Sidra Gómez MD [address] [place], [place] [id number] Return in about 6 months (around 06/20/2024). Vascular Medicine Comment on above: Return in about 6 months (around 06/20/19). Start: 06-16-2024 Annual PCP Team Chronic Disease Visit Annual PCP Team Chronic Disease Visit [facility] Start: 05-15-2024 Creatinine measurement Serum Creatinine [facility] Start: 05-01-2024 Advance Directive Discussion Advance Directive Discussion [facility] Start: 04-01-2024 End: 04-01-2024 Patient encounter procedure 04/01/2024 12:00 PM EST Office Visit Family [facility] [place] [address] [place] [address] PodlogarMarilia APRN.SUPERVISOR REMELT [address] [place] [address] [facility] follow up 03/26-03/28 [facility] [place] Comment on above: [facility] follow up 03/26-03/28 Start: 03-28-2024 Patient discharge [facility] Start: 03-27-2024 Application of intermittent pneumatic compression device [facility] Start: 03-27-2024 Referral to general surgeon [facility] Start: 03-26-2024 Ambulation without limitation [facility] Start: 03-26-2024 Assessment of risk of venous thromboembolism [facility] Start: 03-26-2024 Incentive spirometry [facility] Start: 03-26-2024 Insertion of catheter into peripheral vein [facility] Start: 03-26-2024 Oxygen therapy [facility] Start: 03-26-2024 Providing care according to standard [facility] Start: 03-26-2024 [facility] Start: 03-26-2024 Referral to gastroenterology service [facility] Start: 03-26-2024 Following clinical pathway protocol [facility] Start: 03-26-2024 Admission procedure [facility] Start: 03-12-2024 End: 03-12-2024 Patient encounter procedure 03/12/2024 8:00 AM EST Office Visit Vascular Medicine [address] [id number] Sidra Gómez MD [address] [place], [place] [id number] 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] Vascular Medicine Comment on above: Other secondary pulmonary hypertension ( HCC) [I27.29] Start: 02-28-2024 End: 02-28-2024 Patient encounter procedure 02/28/2024 10:00 AM EDT Appointment Radiology [address] [place] [address] Acute pain of right knee [M25.561] Radiology Comment on above: Acute pain of right knee [M25.561] Start: 02-14-2024 End: 02-14-2024 Patient encounter procedure 02/14/2024 11:40 AM EDT Office Visit [facility] Medicine [place] [address] [facility] [address] Marilia Orozco APRN.SUPERVISOR REMELT [address] [place] [address] Hillary leg cellulitis. Requesting flu & covid vaccine [facility] Comment on above: Hillary leg cellulitis. Requesting flu & co vid vaccine Start: 02-09-2024 End: 02-09-2024 ambulatory 02/09/2024 2:00 PM EDT OT/PT/Speech Visit [facility] Physical Therapy [address] [place] [address] Yogesh Forman, PT [address] [place] [address] R26.81 (ICD-10-CM) - Unsteady gait when walking [facility] Physical Therapy Comment on above: R26.81 (ICD-10-CM) - Unsteady gait when walking Start: 02-02-2024 End: 02-02-2024 ambulatory 02/02/2024 1:15 PM EDT OT/PT/Speech Visit [facility] Physical Therapy [address] [place] [address] Tabby Gibbs, EDGE [employer]ARER [address] [place] [address] R26.81 (ICD-10-CM) - Unsteady gait when walking [facility] Physical Therapy Comment on above: R26.81 (ICD-10-CM) - Unsteady gait when walking Start: 02-01-2024 End: 05-02-2024 Potassium [Moles/volume] in Serum or Plasma POTASSIUM Lab Routine Cellulitis of right leg Expected: 02/01/2024, Expires: 05/02/[address] [facility] Work Phone: Comment on above: Expected: 02/01/2024, Expires: Start: 01-29-2024 End: 01-29-2024 Patient encounter procedure 01/29/2024 11:20 AM EDT Office Visit [facility] [place] [address] [place] [address] Marilia Orozco APRN.SUPERVISOR REMELT [address] [place] [address] follow up [facility] [place] Comment on above: follow up Start: 01-29-2024 End: 01-29-2024 ambulatory 01/29/2024 10:30 AM EDT OT/PT/Speech Visit [facility] Physical Therapy [address] [address] Yogesh Forman, PT [address] [address] R26.81 (ICD-10-CM) - Unsteady gait when walking [facility] Physical Therapy Comment on above: R26.81 (ICD-10-CM) - Unsteady gait when walking Start: 01-25-2024 End: 01-25-2024 ambulatory 01/25/2024 10:45 AM EDT OT/PT/Speech Visit [facility] Physical Therapy [address] [place] [address] Yogesh Forman, PT [address] [place] [address] R26.81 (ICD-10-CM) - Unsteady gait when walking [facility] Physical Therapy Comment on above: R26.81 (ICD-10-CM) - Unsteady gait when walking Start: 01-24-2024 End: 01-24-2024 Patient encounter procedure 01/24/2024 12:40 PM EDT Office Visit [facility] [place] [address] [place] [address] Marilia Orozco APRN.SUPERVISOR REMELT [address] [place] [address] follow up cellulitis [facility] [place] Comment on above: follow up cellulitis Start: 01-22-2024 End: 01-22-2024 ambulatory 01/22/2024 3:00 PM EDT OT/PT/Speech Visit [facility] Physical [facility] [address] [place] [address] Yogesh Forman, PT [address] [place] [address] R26.81 (ICD-10-CM) - Unsteady gait when walking [facility] Physical Therapy Comment on above: R26.81 (ICD-10-CM) - Unsteady gait when walking Start: 01-22-2024 End: 01-22-2024 Patient encounter procedure 01/22/2024 11:20 AM EDT Office Visit [facility] [place] [address] [place] [address] Agnes Diaz MD [address] [place] [address] Derm follow up [facility] [place] Comment on above: Derm follow up Start: 01-19-2024 End: 01-19-2024 Patient encounter procedure 01/19/2024 6:30 PM EDT Appointment Radiology [address] [place] [address] Pain and swelling of right lower leg [M79.661, M79.89] Radiology Comment on above: Pain and swelling of right lower leg [M7 9.661, M79.89] Start: 01-18-2024 End: 01-18-2024 Patient encounter procedure 01/18/2024 9:00 AM EDT Office Visit Pulmonology [address] [place] [address] [place] [address] [place] [address] 2 month f/u Pulmonology Comment on above: 2 month f/u Start: 01-17-2024 End: 01-17-2024 ambulatory 01/17/2024 3:15 PM EDT OT/PT/Speech Visit [facility] Physical Therapy [address] [place] [address] Golias, Yogesh, PT [address] [place] [address] R26.81 (ICD-10-CM) - Unsteady gait when walking [facility] Physical Therapy Comment on above: R26.81 (ICD-10-CM) - Unsteady gait when walking Start: 01-16-2024 End: 01-16-2024 Patient encounter procedure 01/16/2024 1:00 PM EDT Office Visit Cardiology [address] [address] echo Cardiology Comment on above: echo Start: 01-15-2024 End: 01-15-2024 ambulatory 01/15/2024 8:45 AM EDT OT/PT/Speech Visit [facility] Physical Therapy [address] [place] [address] KasTabby gomez, [employer] [address] [place] [address] R26.81 (ICD-10-CM) - Unsteady gait when walking [facility] Physical Therapy Comment on above: R26.81 (ICD-10-CM) - Unsteady gait when walking Start: 01-10-2024 End: 01-10-2024 ambulatory 01/10/2024 10:00 AM EDT OT/PT/Speech Visit [facility] Physical Therapy [address] [place] [address] Golias, Yogesh, PT [address] [place] [address] R26.81 (ICD-10-CM) - Unsteady gait when walking [facility] Physical Therapy Comment on above: R26.81 (ICD-10-CM) - Unsteady gait when walking Start: 01-08-2024 End: 01-08-2024 ambulatory 01/08/2024 9:30 AM EDT OT/PT/Speech Visit [facility] Physical Therapy [address] [place] [address] Kasjudyanjelica Tabby, ED[employer] [address] [place] [address] R26.81 (ICD-10-CM) - Unsteady gait when walking [facility] Physical Therapy Comment on above: R26.81 (ICD-10-CM) - Unsteady gait when walking Start: 01-04-2024 End: 01-04-2024 ambulatory 01/04/2024 3:45 PM EDT OT/PT/Speech Visit [facility] Physical Therapy [address] [place] [address] Yogesh Forman, PT [address] [place] [address] R26.81 (ICD-10-CM) - Unsteady gait when walking [facility] Physical Therapy Comment on above: R26.81 (ICD-10-CM) - Unsteady gait when walking Start: 12-31-2023 COVID-19 Vaccine ( season) COVID-19 Vaccine () [facility] Start: 12-31-2023 Covid-19 Vaccine ( season) Covid-19 Vaccine ( season) [facility] Start: 12-31-2023 Covid-19 Vaccine () Covid-19 Vaccine () [facility] Start: 12-31-2023 Influenza vaccination [facility] Start: 12-19-2023 End: 12-19-2023 Patient encounter procedure 12/19/2023 2:30 PM EDT Office Visit Vascular Medicine [address] [place] [address] Sidra Gómez MD [address] [place] [address] 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] Vascular Medicine Comment on above: Other secondary pulmonary hypertension ( HCC) [I27.29] Start: 12-18-2023 End: 12-18-2023 ambulatory 12/18/2023 8:30 AM EDT OT/PT/Speech Visit [facility] Physical Therapy [address] [place], [place] [id number] Yogesh Forman, PT [address] [place], [place] [id number] Unsteady gait when walking [facility] Physical Therapy Comment on above: Unsteady gait when walking Start: 12-12-2023 End: 12-12-2023 Patient encounter procedure 12/12/2023 9:40 AM EDT Office Visit Cardiology [address] [address] echo Cardiology Comment on above: echo Start: 11-22-2023 Subsequent hospital visit by physician 11/22/2023 1:25 PM EDT Hospital Encounter [facility] [address] [place] [address] 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] [facility] Comment on above: Other secondary pulmonary hypertension ( HCC) [I27.29] Start: 11-09-2023 End: 11-09-2023 Patient encounter procedure Pulmonology Comment on above: Saddle PE, severe pulmonary hypertension - sched with another provider due to sooner avail Start: 11-03-2023 ANNUAL PCP TEAM CHRONIC DISEASE VISIT ANNUAL PCP TEAM CHRONIC DISEASE VISIT [facility] Start: 11-03-2023 Complete blood count Hemoglobin/Hematocrit [facility] Start: 11-03-2023 HEMOGLOBIN/HEMATOCRIT HEMOGLOBIN/HEMATOCRIT [facility] Start: 11-03-2023 Hepatitis B surface antibody level LDL CHOLESTEROL [facility] Start: 11-03-2023 SERUM CREATININE SERUM CREATININE [facility] Start: 10-31-2023 End: 10-31-2023 Patient encounter procedure 10/31/2023 9:40 AM EDT Office Visit [facility] [place] [address] [facility] [address] Marilia Orozco APRN.SUPERVISOR REMELT [address] [place] [address] 3 month follow up [facility] [place] Comment on above: 3 month follow up Start: 10-30-2023 End: 01-29-2024 PT panel - Platelet poor plasma by Coagulation assay PROTHROMBIN TIME Lab STAT Acute saddle pulmonary embolism, unspecified whether acute cor pulmonale present (HCC) Expected: 10/30/2023, Expires: 01/29/[address] [facility] Work Phone: Comment on above: Expected: 10/30/2023, Expires: Start: 10-30-2023 End: 10-30-2023 Patient encounter procedure 10/30/2023 1:20 PM EDT Office Visit Family Medicine [place] [address] [place] [address] Agnes Diaz MD [address] [facility] [place] [address] 40 min hospital follow up Family [facility] [place] Comment on above: 40 min hospital follow up Start: 09-13-2023 Covid-19 Vaccine () Covid-19 Vaccine () [facility] Start: 05-23-2023 BP CONTROLLED (<130/80) BP CONTROLLED (<130/80) [facility] Start: 05-01-2023 Advance Directive Discussion Advance Directive Discussion [facility] Start: 05-01-2023 Behavioral Health Screening Behavioral Health Screening [facility] Start: 05-01-2023 Depression Assessment Depression Assessment [facility] Start: 04-13-2023 ANNUAL PCP TEAM CHRONIC DISEASE VISIT ANNUAL PCP TEAM CHRONIC DISEASE VISIT [facility] Start: 04-13-2023 Medicare Annual Wellness Visit Medicare Annual Wellness Visit [facility] Start: 04-13-2023 SERUM CREATININE SERUM CREATININE [facility] Start: 02-11-2023 BP CONTROLLED (<130/80) BP CONTROLLED (<130/80) [facility] Start: 12-30-2022 Covid-19 Vaccine () Covid-19 Vaccine () [facility] Start: 12-30-2022 Influenza vaccination [facility] Start: 12-01-2022 Adult depression screening assessment DEPRESSION SCREENING [facility] Start: 12-01-2022 ANNUAL PCP TEAM CHRONIC DISEASE VISIT ANNUAL PCP TEAM CHRONIC DISEASE VISIT [facility] Start: 12-01-2022 SERUM CREATININE SERUM CREATININE [facility] Start: 07-12-2022 ANNUAL PCP TEAM CHRONIC DISEASE VISIT ANNUAL PCP TEAM CHRONIC DISEASE VISIT [facility] Start: 07-12-2022 BP CONTROLLED (<130/80) BP CONTROLLED (<130/80) [facility] Start: 07-12-2022 HEMOGLOBIN/HEMATOCRIT HEMOGLOBIN/HEMATOCRIT [facility] Start: 07-12-2022 Hepatitis B surface antibody level LDL CHOLESTEROL [facility] Start: 07-12-2022 SERUM CREATININE SERUM CREATININE [facility] Start: 06-19-2022 COVID-19 VACCINE (7 - Pfizer series) COVID-19 VACCINE (7 - Pfizer series) [facility] Start: 05-23-2022 End: 06-06-2022 Influenza virus A and B RNA and SARS-CoV-2 (COVID-19) N gene panel - Respiratory specimen by DANNIELLE with probe detection [facility] Work Phone: Comment on above: Expected: 05/23/2022, Expires: Start: 05-01-2022 ADVANCE DIRECTIVE DISCUSSION ADVANCE DIRECTIVE DISCUSSION [facility] Start: 05-01-2022 DEPRESSION ASSESSMENT DEPRESSION ASSESSMENT [facility] Start: 12-30-2021 Influenza vaccination INFLUENZA (#1) [facility] Start: 12-14-2021 SHINGRIX VACCINE (3 of 3) SHINGRIX VACCINE (3 of 3) [facility] Start: 12-02-2021 End: 02-01-2022 Comprehensive metabolic 2000 panel - Serum or Plasma COMP METABOLIC PANEL Lab Routine Stage 3b chronic kidney disease (HCC) Expected: 12/02/2021, Expires: 02/01/[address] [facility] Work Phone: Comment on above: Expected: 12/02/2021, Expires: 2 Start: 11-17-2021 COVID-19 VACCINE (5 - Booster for Pfizer series) COVID-19 VACCINE (5 - Booster for Pfizer series) [facility] Start: 07-30-2021 Adult depression screening assessment DEPRESSION SCREENING [facility] Start: 07-30-2021 BP CONTROLLED (<130/80) BP CONTROLLED (<130/80) [facility] in Start: 05-01-2021 ADVANCE DIRECTIVE DISCUSSION ADVANCE DIRECTIVE DISCUSSION [facility] Start: 05-01-2021 DEPRESSION ASSESSMENT DEPRESSION ASSESSMENT [facility] Start: 04-29-2013 SHINGRIX VACCINE (2 of 3) SHINGRIX VACCINE (2 of 3) [facility] Start: 2004 RSV Vaccine (1 - 1-dose 60+ series) RSV Vaccine (1 - 1-dose 60+ series) [facility] Start: 1962 Anxiety Screening Anxiety Screening [facility] Start: 1962 Depression Screening Depression Screening [facility] Start: 1962 Hepatitis C screening Hepatitis C Screening [facility] Start: 1944 Lipid panel Lipid Panel [facility] Start: 1945 Medicare Annual Wellness Visit Medicare Annual Wellness Visit (AWV) [facility] End: 11-03-2023 Echocardiography ECHO Cardiology Routine Essential hypertension, benign Stage 3b chronic kidney disease (HCC) Bilateral leg edema ASHD (arteriosclerotic heart disease) 1 Occurrences starting 11/02/2022 until 11/03/[address] [facility] Work Phone: Comment on above: 1 Occurrences starting 11/02/2022 until 11/03/2023 End: 11-08-2024 Echocardiography ECHO Cardiology Routine Other secondary pulmonary hypertension (HCC) History of pulmonary embolism 1 Occurrences starting 11/09/2023 until 11/08/2024 [facility] Comment on above: 1 Occurrences starting 11/09/2023 until 11/08/2024 Hemoglobin A1c/Hemoglobin.total in Blood HEMOGLOBIN A1C (POC) Lab Routine Prediabetes Ordered: 08/01/[address] [facility] Work Phone: Comment on above: Ordered: 08/01/2023 Hzv zoster vacc georgiana mbinant adjuvanted im njx ZOSTER VACC RECOMBINANT,IM Immunization/Injection Routine Need for vaccination Ordered: 10/19/[address] [facility] Work Phone: Comment on above: Ordered: 10/19/2021 End: 02-22-2025 MR Knee - right WO contrast MRI KNEE WO IVCON RIGHT Radiology Routine Acute pain of right knee 1 Occurrences starting 01/24/2024 until 02/22/[address] [facility] Work Phone: Comment on above: 1 Occurrences starting 01/24/2024 until 02/22/2025 End: 12-08-2024 NM Lung Ventilation and Perfusion NM LUNG VENT / PERF VQ Radiology Routine Other secondary pulmonary hypertension (HCC) 1 Occurrences starting 11/09/2023 until 12/08/[address] [facility] Work Phone: Comment on above: 1 Occurrences starting 11/09/2023 until 12/08/2024 Patient Education [facility] Work Phone: Patient referral [facility] Work Phone: PT ED NEPHROLOGY PT ED NEPHROLOG Y Other 10/30/[address] [facility] Work Phone: PT PLAN OF CARE CERTIFICATION PT PLAN OF CARE CERTIFICATION Procedures Routine Chronic bilateral low back pain with bilateral sciatica At high risk for falls Age-related physical debility Personal history of fall Ordered: 12/09/[address] [facility] Work Phone: Comment on above: Ordered: 12/09/2021 PT PLAN OF CARE CERTIFICATION PT PLAN OF CARE CERTIFICATION Procedures Routine Chronic bilateral low back pain with bilateral sciatica Ordered: 11/29/[address] [facility] Comment on above: Ordered: 11/29/2022 End: 02-16-2025 XR Knee - right 4 Views XR KNEE GENERAL 4V AP BOTH/PA BOTH/LAT/MERC RIGHT Radiology Routine Acute pain of right knee 1 Occurrences starting 01/18/2024 until 02/16/[address] [facility] Work Phone: Comment on above: 1 Occurrences starting 01/18/2024 until 02/16/2025 XR Knee - right 4 Views XR KNEE GENERAL 4V AP BOTH/PA BOTH/LAT/MERC RIGHT Radiology Routine Acute pain of right knee 01/18/2024 12:32 PM EDT [facility] Immunizations Immunization Date Immunization Notes Care Provider Fa abbey 02-14-2024 COVID-19 vaccine, ag e 12+ yr (PFIZER-BIONTECH COMIRNATY) Marilia Podlogar RECORD TESTER.SUPERVISOR REMELT Work Phone: [facility] 02-14-2024 influenza, high dose seasonal, preservative-free Marilia Podlogar RECORD TESTER.SUPERVISOR REMELT Work Phone: [facility] 05-15-2023 COVID-19 vaccine, ag e 12+ yr, season (PFIZER-BIONTECH) Marilia Podlogar RECORD TESTER.SUPERVISOR REMELT Work Phone: [facility] 05-15-2023 influenza (HD-IIV4) vaccine, age 65+ yr, high dose, quadrivalent, PF (FLUZONE HIGH-DOSE) Marilia Podlogar RECORD TESTER.SUPERVISOR REMELT Work Phone: [facility] 05-15-2023 influenza virus vaccine, unspecified formulation Leonila Triana RN Work Phone: [facility] 05-06-2023 respiratory syncytia l virus (RSV) vaccine, adjuvanted (AREXVY) Marilia Podlogar RECORD TESTER.SUPERVISOR REMELT Work Phone: [facility] 03-03-2022 zoster vaccine recombinant Anusha Trevino MA [facility] 02-16-2022 Covid Pfizer Bivalen t Booster Dr. Salvador Diaz MD Work Phone: [facility] 02-16-2022 influenza, high-dose , quadrivalent vaccine (FLUZONE HIGH DOSE QUADRIVALENT) Agnes Diaz MD Work Phone: [facility] 02-16-2022 influenza virus vaccine, unspecified formulation Wade Marquez Jr., MD Work Phone: [facility] 10-19-2021 zoster vaccine recombinant Mi Nurse Work Phone: [facility] Work Phone: 09-22-2021 COVID-19 original vaccine, age 12+ yr, monovalent (PFIZER-BIONTECH - AGUIAR TOP) Agnes Diaz MD Work Phone: [facility] 09-22-2021 COVID-19 vaccine, ag e 12+ yr (PFIZER-BIONTECH - PURPLE TOP) Agnes Diaz MD Work Phone: [facility] 02-01-2021 Covid (Pfizer) Dr. Elmer Diaz MD Work Phone: [facility] 01-12-2021 influenza, high-dose , quadrivalent vaccine (FLUZONE HIGH DOSE QUADRIVALENT) Agnes Diaz MD Work Phone: [facility] 07-17-2020 COVID-19 vaccine, ag e 12+ yr (PFIZER-BIONTECH - PURPLE TOP) Agnes Diaz MD Work Phone: [facility] 06-26-2020 COVID-19 vaccine, ag e 12+ yr (PFIZER-BIONTECH - PURPLE TOP) Agnes Diaz MD Work Phone: [facility] 02-22-2020 influenza, high-dose , quadrivalent vaccine (FLUZONE HIGH DOSE QUADRIVALENT) Agnes Diaz MD Work Phone: [facility] 08-01-2019 tetanus toxoid, redu sakshi diphtheria toxoid, and acellular pertussis vaccine, adsorbed Agnes Diaz MD Work Phone: [facility] 02-05-2019 influenza, high dose seasonal, preservative-free Agnes Diaz MD Work Phone: [facility] 01-29-2018 influenza virus vaccine, unspecified formulation Agnes Diaz MD Work Phone: [facility] 06-09-2017 influenza, high dose seasonal, preservative-free Agnes Diaz MD Work Phone: [facility] Work Phone: 05-10-2016 pneumococcal conjuga te vaccine, 13 valent Agnes Diaz MD Work Phone: [facility] 02-20-2016 influenza, high dose seasonal, preservative-free Agnes Diaz MD Work Phone: [facility] 01-21-2016 Influenza virus vaccine [facility] 02-19-2015 influenza, high dose seasonal, preservative-free Agnes Diaz MD Work Phone: [facility] Work Phone: 02-05-2014 influenza, injectabl e, quadrivalent, preservative free Dr. Salvador Diaz MD Work Phone: [facility] 02-05-2014 influenza, seasonal, injectable Agnes Diaz MD Work Phone: [facility] 03-04-2013 zoster vaccine, live Marcelo Diaz MD Work Phone: [facility] 02-09-2013 influenza virus vaccine, unspecified formulation Agnes Diaz MD Work Phone: [facility] 04-11-2012 influenza virus vaccine, unspecified formulation Agnes Diaz MD Work Phone: [facility] 03-14-2011 influenza virus vaccine, unspecified formulation Agnes Diaz MD Work Phone: [facility] Work Phone: 03-08-2010 influenza virus vaccine, unspecified formulation Agnes Diaz MD Work Phone: [facility] 03-08-2010 pneumococcal polysaccharide vaccine, 23 valent Agnes Diaz MD Work Phone: [facility] 04-20-2009 novel [id number], preservative-free, injectable Dr. Salvador Diaz MD Work Phone: [facility] 02-06-2009 influenza virus vaccine, unspecified formulation Agnes Diaz MD Work Phone: [facility] Work Phone: 10-04-2007 tetanus toxoid, redu sakshi diphtheria toxoid, and acellular pertussis vaccine, adsorbed Agnes Diaz MD Work Phone: [facility] Work Phone: 04-14-2006 influenza virus vaccine, unspecified formulation Agnes Diaz MD Work Phone: [facility] Work Phone: 1945 pneumococcal conjuga te vaccine, 7 valent [facility] Payers Date Payer Category Payer Self-pay [id number] 2023 Unknown AARP AARP [id number] 2023-Present [address] [place] [address] [id number] 2017 Private Health Insurance [facility] AARP SUPPLEMENT [id number] 2017-Present [phone] [address] [place] [address] Indemnity [id number] 2017 Private Health Insurance [id number] 2017 Unknown [id number] 2014 Unknown [id number] 2009 Medicare MEDICARE MEDICAR E A AND B [id number] 2009-Present [phone] [place] [address] Medicare [id number] 2009 Medicare [id number] 2009 Medicare [id number] 1944 Unknown [id number] .356 1944 Unknown [id number] .356 1944 Unknown [id number] [id number] .1244 Unknown [id number] 2.16.840.1.719765.3.579.2 .462 Unknown [id number] 2.16.840.1.342385.3.579.2 .462 Unknown [id number] 2.16.840.1.704254.3.579.2 .462 Unknown [id number] 2.16.840.1.802260.3.579.2 .462 Unknown [id number] 2.16.840.1.121753.3.579.2 .462 Unknown [id number] 2.16.840.1.517573.3.579.2 .462 Unknown [id number] 2.16.840.1.835912.3.579.2 .462 Unknown [id number] 2.16.840.1.398273.3.579.2 .462 Unknown [id number] 2.16.840.1.692603.3.579.2 .462 Unknown [id number] 2.16.840.1.208506.3.579.2 .462 Unknown [id number] 2.16.840.1.360812.3.579.2 .462 Unknown [id number] 2.16.840.1.471448.3.579.2 .462 Unknown [id number] 2.16.840.1.301972.3.579.2 .462 Unknown [id number] 2.16.840.1.114531.3.579.2 .462 Unknown [id number] 2.16.840.1.145371.3.579.2 .462 Unknown [id number] 2.16.840.1.713262.3.579.2 .462 Unknown [id number] 2.16.840.1.967942.3.579.2 .462 Unknown [id number] 2.16.840.1.615603.3.579.2 .462 Unknown [id number] 2.16.840.1.476525.3.579.2 .462 Unknown [id number] 2.16.840.1.931987.3.579.2 .462 Social History Date Type Detail Facility Start: 01-01-2021 [facility] Start: 1945 End: 1945 Sex Assigned At Male [facility] Start: 04-28-2011 End: 11-09-2023 Tobacco smoking status NHIS Never smoked tobacco [facility] Start: 07-12-2021 End: 10-08-2024 Alcohol intake Current non-drinker of alcohol (finding) [facility] Start: 01-13-2020 End: 10-27-2022 History SDOH Alcohol Frequency 1 [facility] Start: 01-13-2020 History SDOH Alcohol Std Drinks 98 [facility] Start: 11-18-2019 End: 10-27-2022 History SDOH Social Connections Phone 5 [facility] Start: 11-18-2019 End: 10-27-2022 History SDOH Social Connections Get Together 2 [facility] Start: 11-18-2019 End: 10-27-2022 History SDOH Social Connections Restoration 3 [facility] Start: 11-18-2019 History SDOH Physical Activity DPW 6 [facility] Start: 10-08-2021 End: 01-15-2024 Exposure to SARS-CoV-2 (event) Not sure [facility] Work Phone: Start: 04-28-2011 End: 11-09-2023 Tobacco use and exposure Smokeless tobacco non-user [facility] Start: 10-27-2022 History SDOH Alcohol Std Drinks 0 [facility] Start: 10-27-2022 History SDOH Social Connections Get Together 4 [facility] Start: 10-27-2022 End: 09-25-2024 History of Social function [facility] Start: 10-27-2022 End: 09-25-2024 Social connection and isolation panel [facility] Do you belong to any clubs or organizations such as muslim groups, unions, fraternal or athletic groups, or school groups? Yes [facility] Are you now , , , , never or living with a partner? [facility] How often to you hav e a drink containing alcohol? Never [facility] How many standard dr inks containing alcohol do you have on a typical day? Patient does not drink [facility] Do you feel stress - tense, restless, nervous, or anxious, or unable to sleep at night because your mind is troubled all the time - these days [OSQ] Not at all [facility] (I/We) worried wheth er (my/our) food would run out before (I/we) got money to buy more. Never true [facility] In the past 12 month s, was there a time when you were not able to pay the mortgage or rent on time? No [facility] Start: 07-31-2018 Gender identity Identifies as male gender (finding) [facility] Start: 12-28-2020 Sexual orientation Heterosexual (finding) [facility] Start: 09-04-2016 None [facility] Start: 09-04-2016 Spouse/ Significant Other [facility] History of tobacco use [facility] smoker [facility] Start: 1945 Sex assigned at Not on file [facility] Work Phone: Start: 07-04-2024 Sex Male (finding) [facility] Medical Equipment Procedure Code Equipment Code Equipment Origin al Text Equipment Identifier Dates ERCP (endoscopic retrograde cholangiopancreatog justin) ([id number]) Polymeric biliary stent, non-bioabsorbable ()[id number] [facility] Start: 03-27-2024 Liner 36mm 0d F X3 7.9mm Acetabular Hip - [id number] Start: 06-03-2019 Trident Solidback?Acetabula r Shell 58mm F [id number] Start: 06-03-2019 Head V40 36mm 0m m Offset Taper Biolox Delta Femoral Hip - [id number] Start: 06-03-2019 Stem Accolade Ii 6 127d Femoral - [id number] Start: 06-03-2019 Goals Date Patient Goal Desired Activity /State Personal health goal Functional Status Date Assessment Result Facility 03-28-2024 Functional status Ambulates [facility] Work Phone: 10-27-2023 Are you deaf, or do you have serious difficulty hearing No 10/27/2023 4:08 PM EDT Virgilio Bee RN No [facility] 10-27-2023 Are you blind, or do you have serious difficulty seeing, even when wearing glasses No 10/27/2023 4:08 PM Virgilio Ambrose RN No [facility] 10-27-2023 Do you have serious difficulty walking or climbing stairs No 10/27/2023 4:08 PM EDVirgilio Hernandez RN No [facility] 10-27-2023 Do you have difficul ty dressing or bathing No 10/27/2023 4:08 PM Virgilio Ambrose RN No [facility] 10-27-2023 Because of a physica l, mental, or emotional condition, do you have difficulty doing errands alone such as visiting a physician's office or shopping No 10/27/2023 4:08 PM Virgilio Ambrose RN No [facility] Mental Status Date Assessment Result Facility 10-07-2024 Cognitive function Voice/Name [facility] Work Phone: 07-04-2024 Cognitive function Voice/Name [facility] Work Phone: 03-28-2024 Cognitive function Level Of Cons ciousness Awake;Alert;Appropriate;Fol lows Commands [facility] Work Phone: 03-27-2024 Cognitive function Voice/Name [facility] Work Phone: 10-27-2023 Because of a physica l, mental, or emotional condition, do you have serious difficulty concentrating, remembering, or making decisions 10/27/2023 4:08 PM EDT Virgilio Bee, CHAD No [facility] Clinical Notes 06-03-2019 to 10-10-2024 Telephone Encounter - Malachi Castillo RN - 10/10/2024 8:39 AM EDTTelephone Encounter - Malachi Castillo RN - 10/10/2024 8:39 AM EDSelam Macias RT(R) - 10/08/2024 10:20 AM EDT Note Date & Type Note Facility 10-10-2024 Telephone encounter Note Pt returned call and given provider's message below with verbalized understanding. [facility] 10-10-2024 Miscellaneous Notes Pt returned call and given provider's message below with verbalized understanding. Images from the original note were not included. Marilia Orozco APRN.RUBÉN P Wstr Fp Podlogar Pool TSH level in normal range. Continue current dose of synthroid. Marilia Orozco APRN.CNP Phoned patient left message to return call and ask to speak to a nurse for results. ----- Message from Marilia Orozco APRN.CNP sent at 10/08/2024 2:41 PM EDT ----- Hand and wrist xray shows possible area of healing of wrist without any acute fracture. Also shows multiple areas of hand and wrist mild to severe arthritic changes. Marilia Orozco APRN.CNP documented in this encounter [facility] 10-09-2024 Telephone encounter Note Images from the original note were not included. Marilia Orozco APRN.CNP P Wstr Fp Podlogar Pool TSH level in normal range. Continue current dose of synthroid. Marilia Orozco APRN.CNP [facility] 10-09-2024 Telephone encounter Note Phoned patient left message to return call and ask to speak to a nurse for results. [facility] 10-09-2024 Telephone encounter Note ----- Message from Marilia Orozco APRN.CNP sent at 10/08/2024 2:41 PM EDT ----- Hand and wrist xray shows possible area of healing of wrist without any acute fracture. Also shows multiple areas of hand and wrist mild to severe arthritic changes. Marilia Orozco APRN.CNP [facility] 10-08-2024 History of Presen t illness Narrative Radiology Service Progress Note PATIENT NAME: Fran Parekh DATE OF SERVICE: October 08, 2024 TIME: 10:56 AM PATIENT IDENTITY VERIFICATION COMPLETED USING TWO (2) IDENTIFIERS: Name and Date of confirmed by patient verbally. FALL SCREENING: Has the patient had 2 falls in the last year or 1 fall with injury or currently using an Ambulatory Assistive Device (Walker, Cane, Wheelchair, Crutches, etc.)? No PATIENT GENDER DATA: Assigned male at PATIENT RELEVANT IMPLANT DATA REVIEWED: Yes PATIENT PRESENTS WITH AN IMPLANTABLE OR ATTACHED LITERACY COACH: No RADIOLOGY DEPARTMENT: General X-ray: Exam(s) Completed: Upper Extremity X-Ray(s): Wrist, left and Hand, left PERIPHERAL IV DATA: Not applicable SIGNED BY: RT Ministerio(Tarah) October 08, 2024 10:56 AM documented in this encounter [facility] 10-08-2024 Note HNO ID: [id number] Author: SELAM SCHMID RT(R) Service: ? Author Type: Technologist Type: Progress Notes Filed: 10/08/2024 10:57 Note Text: Radiology Service Progress Note PATIENT NAME: Fran Parekh DATE OF SERVICE: October 08, 2024 TIME: 10:56 AM PATIENT IDENTITY VERIFICATION COMPLETED USING TWO (2) IDENTIFIERS: Name and Date of confirmed by patient verbally. FALL SCREENING: Has the patient had 2 falls in the last year or 1 fall with injury or currently using an Ambulatory Assistive Device (Walker, Cane, Wheelchair, Crutches, etc.)? No PATIENT GENDER DATA: Assigned male at PATIENT RELEVANT IMPLANT DATA REVIEWED: Yes PATIENT PRESENTS WITH AN IMPLANTABLE OR ATTACHED LITERACY COACH: No RADIOLOGY DEPARTMENT: General X-ray: Exam(s) Completed: Upper Extremity X-Ray(s): Wrist, left and Hand, left PERIPHERAL IV DATA: Not applicable SIGNED BY: RT Ministerio(R) October 08, 2024 10:56 AM [facility] 10-08-2024 Instructions Marilia Orozco APRN.SUPERVISOR REMELT - 10/08/2024 9:45 AM EDT - Continue taking your prescribed [place] for pain as directed; do not take extra Tylenol or any ibuprofen/NSAIDs while on Eliquis. - Apply ice to your left wrist for 15-20 minutes at a time as needed for pain relief. - You may use a compression wrap on your wrist if it does not overly limit your hand use. - Get your thyroid blood work today--check in at the front office specialist for labs. - Have X-rays of your left hand and wrist today--check in at the front office specialist for imaging. - We will review your X-ray results to determine if there is a break, sprain, or arthritis flare and plan any further treatment. documented in this encounter [facility] 10-08-2024 Note HNO ID: [id number] Author: MARILIA OROZCO APRN.RUBÉN Service: ? Author Type: Nurse Practitioner Type: Progress Notes Filed: 10/08/2024 09:54 Note Text: 10/08/2024 Patient presents with: Pain: Left wrist pain, fell about a month ago and caught himself with his hands. Recording using File[employer] software for draft documentation of the visit was discussed with the patient/authorized exhibit display representative; all questions welcomed and answered. Patient/authorized exhibit display representative agreed to proceed SUBJECTIVE: This is a 79 year old that is here today for Above Complaints.. Left Wrist Pain: - Pain onset following a fall approximately one month ago; Fran reports catching himself with his hands. - Pain localized to the dorsum of the left hand and wrist. - Describes pain as sharp and exacerbated by pressure and movement, particularly when using the left hand. - Denies significant pain at rest, but reports a persistent ache. - Denies bruising, swelling, or deformity at the time of injury. - Has been using a brace purchased from a medical supply store. - No additional pain management measures taken. - History of bilateral carpal tunnel release performed by Dr. Feng. - Previous left wrist sprain from a fall while painting in the kitchen. Hypothyroidism: - Missed recent blood work appointment scheduled for 09/28. PAST MEDICAL HISTORY Diagnosis Date Angina at rest 09/14/2016 Arthritis of hip 06/08/2018 R hip, S/P SUSAN ASHD (arteriosclerotic heart disease) 09/14/2016 Bilateral carpal tunnel syndrome Bilateral lower extremity edema 2/2 venous insufficiency BPH (benign prostatic hyperplasia) Choledocholithiasis 04/05/2024 Chronic 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 history of unprovoked PE Class 2 obesity due to excess calories with body mass index (BMI) of 38.0 to 38.9 in adult Diverticulosis of colon (without mention of hemorrhage) Essential hypertension, benign History of pulmonary embolism Hyperlipidemia LDL goal <100 09/14/2016 Hypothyroidism Intention tremor 05/07/2012 Internal derangement of right knee 05/07/2012 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 Chowdary in [place] Stage 3a chronic kidney disease (HCC) Venous insufficiency ALLERGIES Norvasc [Amlodipine Besylate], Venom-Wasp, and Zithromax [Azithromycin] MEDICATIONS Current Outpatient Medications Medication Sig apixaban (ELIQUIS) 5 mg tab(s) Take 1 tablet by mouth two times a day. atorvastatin (LIPITOR) 40 mg tablet Take 1 tablet by mouth once daily. metoprolol succinate ER (TOPROL XL) 50 mg 24 hr tablet Take 1 tablet by mouth once daily. lisinopril (ZESTRIL) 40 mg tablet Take 1 tablet by mouth once daily. levothyroxine (SYNTHROID) 125 mcg tablet TAKE 1 TABLET BY MOUTH EVERY DAY ON AN EMPTY STOMACH FOR THYROID hydroCHLOROthiazide 25 mg tablet Take 1 tablet by mouth once daily. tiZANidine (ZANAFLEX) 2 mg tablet Take 1 tablet by mouth every 6 hours as needed. ammonium lactate (LAC-HYDRIN) 12 % cream Apply to affected area as needed. Apply on thick skin gabapentin (NEURONTIN) 300 mg capsule Take 300 mg by mouth daily at bedtime. CPAP AutoPAP [id number]. Mask per preference, tubing, filters, humidity. [employer]. Dx: G47.33. Fax 30 day compliance report to [phone]. CPAP Please provide mask fitting. Pt with [...] Social History Tobacco Use Smoking status: Never Passive exposure: Past Smokeless tobacco: Never Vaping Use Vaping status: Never Used Substance Use Topics Alcohol use: No Drug use: No REVIEW OF SYSTEMS All other reviewed and negative other than HPI. OBJECTIVE: BP 118/76 Pulse (!) 58 Resp 18 Wt 132.9 kg (293 lb) SpO2 98% BMI 42.61 kg/m? . Vital signs reviewed by this provider. GENERAL: NAD, alert and oriented. SKIN: Unremarkable, no rash or skin lesions to exposed skin EXTREMITIES: Mild swelling noted over the radial area of the left wrist. Pain elicited with dorsiflexion, mild pain with palmar flexion, ulnar deviation, and radial deviation. Pain with making a fist. No deformities, no skin discoloration, no edema. 2+ radial pulse Depression Screening Never done Anxiety Screening Never done BP Controlled (<130/80) due on 07/30/2021 Advance Directive Discussion Never done Covid-19 Vaccine() due on 08/14/2024 (more content not included)... [facility] 10-08-2024 History of Presen t illness Narrative 10/08/2024 Patient presents with: Pain: Left wrist pain, fell about a month ago and caught himself with his hands. Recording using Fileforce software for draft documentation of the visit was discussed with the patient/authorized exhibit display representative; all questions welcomed and answered. Patient/authorized exhibit display representative agreed to proceed SUBJECTIVE: This is a 79 year old that is here today for Above Complaints.. Left Wrist Pain: - Pain onset following a fall approximately one month ago; Fran reports catching himself with his hands. - Pain localized to the dorsum of the left hand and wrist. - Describes pain as sharp and exacerbated by pressure and movement, particularly when using the left hand. - Denies significant pain at rest, but reports a persistent ache. - Denies bruising, swelling, or deformity at the time of injury. - Has been using a brace purchased from a medical supply store. - No additional pain management measures taken. - History of bilateral carpal tunnel release performed by Dr. Feng. - Previous left wrist sprain from a fall while painting in the kitchen. Hypothyroidism: - Missed recent blood work appointment scheduled for 09/28. PAST MEDICAL HISTORY Diagnosis Date Angina at rest 09/14/2016 Arthritis of hip 06/08/2018 R hip, S/P SUSAN ASHD (arteriosclerotic heart disease) 09/14/2016 Bilateral carpal tunnel syndrome Bilateral lower extremity edema 2/2 venous insufficiency BPH (benign prostatic hyperplasia) Choledocholithiasis 04/05/2024 Chronic 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 history of unprovoked PE Class 2 obesity due to excess calories with body mass index (BMI) of 38.0 to 38.9 in adult Diverticulosis of colon (without mention of hemorrhage) Essential hypertension, benign History of pulmonary embolism Hyperlipidemia LDL goal <100 09/14/2016 Hypothyroidism Intention tremor 05/07/2012 Internal derangement of right knee 05/07/2012 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 Chowdary in [place] Stage 3a chronic kidney disease (HCC) Venous insufficiency ALLERGIES Norvasc [Amlodipine Besylate], Venom-Wasp, and Zithromax [Azithromycin] MEDICATIONS Current Outpatient Medications Medication Sig apixaban (ELIQUIS) 5 mg tab(s) Take 1 tablet by mouth two times a day. atorvastatin (LIPITOR) 40 mg tablet Take 1 tablet by mouth once daily. metoprolol succinate ER (TOPROL XL) 50 mg 24 hr tablet Take 1 tablet by mouth once daily. lisinopril (ZESTRIL) 40 mg tablet Take 1 tablet by mouth once daily. levothyroxine (SYNTHROID) 125 mcg tablet TAKE 1 TABLET BY MOUTH EVERY DAY ON AN EMPTY STOMACH FOR THYROID hydroCHLOROthiazide 25 mg tablet Take 1 tablet by mouth once daily. tiZANidine (ZANAFLEX) 2 mg tablet Take 1 tablet by mouth every 6 hours as needed. ammonium lactate (LAC-HYDRIN) 12 % cream Apply to affected area as needed. Apply on thick skin gabapentin (NEURONTIN) 300 mg capsule Take 300 mg by mouth daily at bedtime. CPAP AutoPAP [id number]. Mask per preference, tubing, filters, humidity. [employer]. Dx: G47.33. Fax 30 day compliance report to [phone]. CPAP Please provide mask fitting. Pt with [...] Social History Tobacco Use Smoking status: Never Passive exposure: Past Smokeless tobacco: Never Vaping Use Vaping status: Never Used Substance Use Topics Alcohol use: No Drug use: No REVIEW OF SYSTEMS All other reviewed and negative other than HPI. OBJECTIVE: BP 118/76 Pulse (!) 58 Resp 18 Wt 132.9 kg (293 lb) SpO2 98% BMI 42.61 kg/m . Vital signs reviewed by this provider. GENERAL: NAD, alert and oriented. SKIN: Unremarkable, no rash or skin lesions to exposed skin EXTREMITIES: Mild swelling noted over the radial area of the left wrist. Pain elicited with dorsiflexion, mild pain with palmar flexion, ulnar deviation, and radial deviation. Pain with making a fist. No deformities, no skin discoloration, no edema. 2+ radial pulse Depression Screening Never done Anxiety Screening Never done BP Controlled (<130/80) due on 07/30/2021 Advance Directive Discussion Never done Covid-19 Vaccine() due on 08/14/2024 Hemoglobin/Hematocrit due on 01/18/2025 Annual PCP Team Chronic Disease Visit due on 08/13/2025 LDL Cholesterol due on 08/15/2025 Serum Creatinine due on 08/15/2025 Diabetes Screening due on 08/16/2027 DTaP,Tdap,Td Vaccine(3 - Td or Tdap) due on 07/31/2029 Influenza Vaccine Completed RSV Vaccine Completed Shingrix Vaccine Completed Pneumococcal Vaccine: 50+ Completed Colorectal Cancer Screening Discontinued 1. Left hand pain (M79.642) 2. Left wrist pain (M25.532) - Onset of pain following a fall approximately one month ago; no recollection of specific trauma or impact. - Pain localized to the dorsum of the hand and wrist, described as sharp and exacerbated by pressure and movement; minimal pain at rest. - No initial bruising or swelling observed; no deformity noted. - Previous history of carpal tunnel surgery on both hands by Dr. Feng. - Physical examination reveals pain with dorsiflexion, ulnar deviation, and fist formation; mild swelling observed over the radial area. - Differential diagnoses include fracture, sprain, or arthritis. - Ordered X-rays of the left hand and wrist to evaluate for fractures or other abnormalities; patient to complete imaging today. - Advised use of ice to reduce inflammation. - Patient currently on [place] for lower back pain and arthritis; advised against additional Tylenol due to current medication regimen. - Patient on Eliquis; advised against NSAIDs. - Discussed potential for sprains to take 6-8 weeks to heal. - Follow-up pending X-ray results to determine further management. Marilia Orozco APRN.SUPERVISOR [employer] Prescription instructions reviewed with patient as applicable. Patient advised if symptoms do not improve or if symptoms worsen sooner, to contact their primary care physician. Potential red flag symptoms discussed with the patient. Reviewed appropriate action plan to take if red flag symptoms occur. Patient agreeable to treatment plan. Medical Decision Making: Problems: Low: Acute, uncomplicated illness or injury Data: Unique test(s) ordered: 1 Risk: Low: Low risk from testing/treatment Medical Decision Making Level: 3 - Low documented in this encounter [facility] 10-07-2024 History and physical note Note Date/Time October 07, 2024 11:32am [facility] Medical Records Department [address] [place] [id number] History & Physical Exam 10/07/24 1130 MR#: [id number] Acct: [id number] Name: FRAN PAREKH Rep #:[id number] : 1945 79 From: [facility] Friend PCP: Dr. Salvador Diaz MD Status :[facility] Location: [place] [address] HPI - General General Date of Admission: 10/07/24 Date of Service: 10/07/24 Chief Complaint: Ampulla with low-grade dysplasia HPI Narrative FRAN PAREKH, is a 79 M who presents for repeat ERCP with ampullectomy. [facility] hospitalization 03.26.24 - 03.28.24 dizziness - consulted for pancreatitis abd/pelvis CT 03.26.24 Lobulated 6 cm pancreatic tail hypoattenuating, cystic appearing lesion previously measuring only up to 3 cm. Cystic neoplastic process is not excluded. Severe distal colonic diverticulosis without focus of diverticulitis. 3 cm exophytic anterior right interpolar renal lesion which does not measure simple fluid attenuation. Recommend nonemergent follow-up renal ultrasound to better characterize as solid neoplastic process is not 6excluded. Gall Bladder US 03.26.24 Fatty infiltration of the liver. MRCP 03.26.24 1. Normal gallbladder and biliary tree. 2. 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 ERCP 03.27.24 The entire main bile duct and left main hepatic duct were dilated, with a stone causing an obstruction. Choledocholithiasis was found. Complete removal was accomplished by biliary sphincterotomy and balloon extraction. A pancreatic sphincterotomy was performed. The ventral pancreatic duct was swept and debris was found. A biliary sphincterotomy was performed. Thebiliary tree was swept. One temporary stent was placed into the common bile duct. OV 12.17.24 pt reports that he is feeling well overall and denies GI symptoms ofconcern at this time. Pt states that he has not had any symptoms since hospitalization. Would like to know when his stent will be removed. ERCP .25 Mucosal changes in the duodenum. Biopsies were taken with a coldforceps for histology in the ampulla. Choledocholithiasis was found. Complete removal was accomplished by biliary sphincterotomy and balloon extraction. A biliary sphincterotomy was performed. The biliary tree was swept. One stent was removed from the biliary tree. OV 3..25 pt reports that he is feeling well overall and denies GI symptoms of concern at this time. Reports continued sciatica pain and reports that in 2 weeks he is having ablation done with Dr Cabezas. [facility] Medical History Carpal tunnel syndrome on both sides Cancer Wears glasses Thyroid disease Shingles Inguinal hernia Cardiology follow-up encounter History of stress test Choledocholithiasis Current use of [facility]cf 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 Elevated liver enzymes Pancreatic mass High cholesterol Hx of gastroesophageal reflux (GERD) Hypothyroidism Hypertension Home Medications ?Medication ?Instructions ?Recorded ?Last Taken ?Type lisinopril 40 mg tablet 40 mg PO DAILY blood pressur e 01/31/13 10/06/24 History atorvastatin 40 mg tablet 40 mg PO QHS cholesterol #90 09/05/16 10/06/24 Rx TABLETS gabapentin 300 mg capsule 300 mg PO QHS nerve pain 10/06/24 History metoprolol succinate 50 mg 50 mg PO DAILY blood pressu re 10/22/23 10/06/24 History tablet,extended release 24 hr apixaban 5 mg tablet (Eliquis) 5 mg PO BID blood thinn er 03/26/24 10/03/24 History hydrochlorothiazide 25 mg tablet 25 mg PO DAILY reduce fluid 03/26/24 10/06/24 History levothyroxine 125 mcg tablet 125 mcg PO DAILY disorder of 03/26/24 10/06/24 History thyroid gland aspirin 81 mg tablet,delayed 81 mg PO DAILY 08/31/24 0 10/03/24 History release (Adult Aspirin Regimen) multivitamin (Daily Multi-Vitamin 1 tab PO DAILY 08/3110/06/24 History tablet) Allergy/AdvReac Type Severity Reaction Status Date / Time azithromycin (From Zithromax) Allergy Itching Verified 10/07/24 10:51 bee venom protein (honey bee) AdvReac Swelling Verified 10/07/24 10:51 venom-wasp (wasps) AdvReac Swelling Verified 10/07/24 10:51 Surgical History History of total right hip arthroplasty S/P carpal tunnel release History of tonsillectomy History of ERCP Social History Smoking Status: Never smoker ROS Constitutional Constitutional: Denies fatigue, fever(s), poor appetite, weight gain or weight loss Gastrointestinal Gastrointestinal: Denies belching, bloating, change in bowel habits, change in stool character, chewing difficulty, coffee ground emesis, constipation, cramping, diarrhea, dyspepsia, dysphagia, early satiety, excessive flatus, fecalincontinence, heartburn, hematemesis, hematochezia, hemorrhoids, loose stools, melena, nausea, odynophagia, rectal bleeding, tenesmus, vomiting or weight changes Vital Signs Vital Signs Vital Signs: 10/07/24 10:53 10/07/24 10:53 Temperature 97.6 F L Temperature Source Temporal Pulse Rate 66 Respiratory Rate 16 Respiratory Pattern Normal Blood Pressure 158/80 H Blood Pressure Mean 106 Blood Pressure Source Monitor Blood Pressure Position Supine Blood Pressure Location Right Arm Pulse Ox 97 Oxygen Delivery Method Room Air Weight Weight: 289 lb 14.526 oz Body Mass Index (BMI) 41.5 Physical Exam Const alert, oriented x3, no apparent distress and healthy appearing General Appearance: cooperative GI normal to inspection, nondistended, normoactive bowel sounds, soft to palpation,non-tender and non-distended Percussion: normal to percussion Rectal Exam: deferred Assessment & Plan Assessment/Plan (1) Ampulla of Vater mass: (2) Biliary stricture: PLAN: Assessment and Plan Assessment and Plan (1) Pancreatitis: Status: Acute (2) Choledocholithiasis: Status: Acute (3) Pancreatic cyst: Status: Acute (4) Ampulla of Vater mass: Status: Acute Plan 78-year-old gentleman who presented to the emergency room with abdominal pain, jaundice and discovered to have elevated LFTs and biochemical and radiologic evidence of 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 He was also discovered to have multiple pancreatic cysts with the largest one being in the pancreatic tail at 4.2 cm. Differential diagnosis for this would be pseudocyst from previous episodes of acute pancreatitis, less likely serous cystoadenoma, IPMN and less likely mucinous cystoadenoma. He underwent ERCP with stone removal and temporary stent placement for biliary stricture. We performed a repeat ercp with stent removal. Findings: A biliary stent was visible on the machine bunch maker film. The esophagus was successfully intubated under direct vision. The scope was advanced to a normal major papilla in the descending duodenum without detailed examination of the pharynx, larynx and associated structures, and upper GI tract. The upper GI tract was grossly normal. A long 0.025 inch Jagwire was passed into the biliary tree. The short-nosed traction sphincterotome was passed over the guidewire and the bile duct was then deeply cannulated. Contrast was injected. I personally interpreted the bile duct images. Ductal flow of contrast was adequate. Image quality was adequate. Contrast extended to the biliary pancreatic junction. Contrast extended to the main bile duct. Contrast extended to the cystic duct. Contrast extended to the gallbladder. Contrast extended to the bifurcation. Contrast extended to the hepatic ducts. Contrast extended to the entire biliary tree. A 5 mm biliary sphincterotomy was made with a braided traction (standard) sphincterotome using ERBE electrocautery. There was no post-sphincterotomy bleeding. The biliary tree was swept with a 12 mm balloon starting at the upper third of the main bile duct, middle third of the main bile duct, lower third of the main duct, bifurcation, left intrahepatic duct(s), left main hepatic duct, right intrahepatic duct(s) and right main hepatic duct. All stones were removed. One stent was removed from the biliary tree using a snare and sent for cytology. The stent was found to be partially occluded via the water column test. A standard esophagogastroduodenoscopy scope was used for the examination of the upper gastrointestinal tract. The scope was passed under direct vision through the upper GI tract. Localized mild mucosal changes characterized by granularity were found in the area of the papilla. Biopsies were taken in the ampulla through the esophagogastroduodenoscope with the cold forceps for histology. Impression: - Mucosal changes in the duodenum. - Biopsies were taken with a cold forceps for histology in the ampulla. - Choledocholithiasis was found. Complete removal was accomplished by biliary sphincterotomy and balloon extraction. - A biliary sphincterotomy was performed. - The biliary tree was swept. - One stent was removed from the biliary tree. MICROSCOPIC DIAGNOSIS Duodenum, ampulla, biopsy: - Fragments of inflamed small intestinal mucosa with focal low dysplasia and reactive changes ? see Comment. - Focal granulation tissue consistent with ulceration - IHC for CMV (cytomegalovirus) is negative (performed at [facility]) - IHC for p53 is wild-type. - IHC for Ki67 is not significantly increased We will schedule him for a repeat endoscopic procedure for of his ampulla due tothe finding of low grade dysplasia. 10/07/24 1132 <Electronically signed by Alex Sher DO> Cosigner Signature (if applicable): CC: Dr. Salvador Diaz MD; Alex Sher DO~ Signed [facility] Work Phone: [phone]) 813-869606-09-2025 Consult note [facility] Medical Records Department [address] [place] [address] Anesthesia Postop Eval II 10/07/24 1324 MR#: [id number] Acct: [id number] Name: OSEAS PAREKHDaisy DOMINGUEZ Rep #:[id number] : 1945 79 From: Jeff Bennett MD PCP: Dr. Salvador Diaz MD Status :REG [facility] Y Race: C Location: [place] [address] Anesthesia Postop Eval I Sum Postop Eval Completion status Anesthesia document: Postop Eval 1 completed: Yes Anesthesia Postop Eval I Summary Anesthesia Postop Eval I Summary: Anesthesia Postop Eval I: Assessment Summary Airway patent Yes 10/07/24 12:50 [email or web address] Spontaneous unlabored Yes 10/07/24 12:50 [email or web address] respirations Mental status Awake,Calm 10/07/24 12:50 [email or web address] nausea No 10/07/24 12:50 [email or web address] Vomiting No 10/07/24 12:50 [email or web address] Anesthesia Postop Eval I: Fluid Summary Crystalloid volume administer 600 10/07/24 12:50 [email or web address] (ml) Colloids volume administered ( ml) Blood Product volume administered (ml) Total IV fluid infused 600 10/07/24 12:50 [email or web address] Anesthesia Postop Eval I: Summary Notes Anesthesia Complication No 10/07/24 12:50 [email or web address] Anesthesia Complication Comment: Post-operative progress note Anesthesia: Postop Eval II Evaluation Mental status: Awake Pain Level: 0 nausea: No Vomiting: No 10/07/24 1325 > Date _ Jeff Bennett MD [facility] Signature: Date CC: ~ Signed [facility]06-09-2025 Consult note [facility] Medical Records Department [address] [place] [address] Anesthesia Postop Eval I 10/07/24 1249 MR#: [id number] Acct: [id number] Name: FRAN PAREKH Rep #:[id number] : 1945 79 From: Tevin Vizcaino PCP: Dr. Salvador Diaz MD Status :REG [facility] Y Race: C Location: [place] [address] Anesthesia: Postop Eval I Current Vital Signs Temperature: 97.8 F Pulse Rate: 67 Blood Pressure: 145/84 Respiratory Rate: 16 Pulse Ox: 95 Oxygen Delivery Method: Room Air Assessment Airway patent: Yes Spontaneous unlabored respirations: Yes Mental status: Awake and Calm nausea: No Vomiting: No Anesthesia Complication: No Fluid Hydration Crystalloid volume administer (ml): 600 Total IV fluid infused: 600 Progress Note Anesthesia document: Postop Eval 1 completed: Yes 10/07/24 1250 > Date _ Tevin Peñalozaignchantale Signature: Date CC: ~ Signed [facility]06-09-2025 Consult note Author [facility] Note Date/Time October 07, 2024 10:50 am [facility] Medical Records Department [address] [place] [address] Pre-Anesthesia Evaluation 10/07/24 1049 MR#: [id number] Acct: [id number] Name: FRAN PAREKH Rep #:[id number] : 1945 79 From: Jeff Bennett MD PCP: Dr. Salvador Diaz MD Status :REG [facility] Y Race: C Location: [place] [address] ASA Classification* ASA Classification ASA Classification: 2 Assessment & Plan Anesthesia* Anesthesia Assessment Anesthesia Assessment: Discussed sedation and/or anesthesia options, risks, benefits, and alternatives with patient/parents/legal guardian/POA. Questions invited. The patient/parents/legal guardian/POA seems to understand and agrees to proceedwith anesthesia plan. Reviewed the physical assessment, medical history, allergy history and patient home medications list prior to surgery/procedure/anesthetic and documented any changes. Performed airway and anesthesia risk assessments. Anesthesia Type Anesthesia Type: MAC ( General anesthesia backup.) Anesthesia Focused Assessment* Airway Assessment Mouth opens: >3 cm Mallampati Score: II Labs Anesthesia Preop lab: CBC WBC 12.6 K/mm3 (4.4-11.0) H 08/31/24 11:42 5 RBC 4.96 M/mm3 (4.6-6.2) 08/31/24 11:42 08/31/24 Hgb 15.9 g/dL (13.0-16.5) 08/31/24 11:42 08/31/24 Hct 46.1 % (40-54) 08/31/24 11:42 08/31/24 Plt Count 225 K/mm3 (150-450) 08/31/24 11:42 08/31/24 CHEMISTRY Potassium 5.0 mmol/L (3.3-5.1) 08/31/24 11:42 08/31/24 Sodium 139 mmol/L (133-145) 08/31/24 11:42 08/31/24 Magnesium 2.6 mg/dL (1.6-2.6) 03/27/24 06:35 03/27/24 BUN 21 mg/dL (4-19) H 08/31/24 11:42 08/31/24 Creatinine 1.46 mg/dL (0.70-1.20) H 08/31/24 11:42 Glucose 135 mg/dL (70-99) H 08/31/24 11:42 08/31/24 TSH 0.51 uIU/mL (0.358-3.74) 09/04/16 01:48 COAG PT 14.4 SECONDS (11.7-14.9) 03/26/24 02:15 Pre-Assessment Diagnosis/Proposed Procedure Planned Operative Procedure(s): ERCP stent placement. 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 10/03/24 10:22 Any Problems With Anesthesia No 10/03/24 10:22 Cholinesterase deficiency No 10/03/24 10:22 You/Your Family Experience No 10/03/24 10:22 fever (hyperthermia) with Relationship Recent Exposure to Contagious No 07/04/24 08:49 Disease Does patient have nerve No 10/03/24 10:22 stimulator Patient instructed to have device shut off --Does patient have Pacemaker or ICD? When Was Last Pacemaker Check QUESTION #4 FULL TEXT: You/Your Family Experience fever (hyperthermia) with Anesthesia Last Oral Intake Last Oral intake: Last Oral Intake NPO since Meds taken in AM with sips of water? 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 Female No 10/03/24 10:22 HX of Motion Sickness No 10/03/24 10:22 HX of N/V After Surgery No 10/03/24 10:22 Non-Smoker Yes 10/03/24 10:22 Duration of Surgery greater No 10/03/24 10:22 than 60 minutes Number of Risk Factors 1 10/03/24 10:22 PONV Score Low Risk 10/03/24 10:22 Height & Weight Height & Weight: Anesthesia: Height & Weight Height 5 ft 10 in 09/17/24 09:36 Respiratory Assessment Respiratory Assessment - rv repair technician: Respiratory Tract Infection Hx - rv repair technician Hx Respiratory Tract Infection No 10/03/24 10:22 STOP Sleep Apnea STOP Sleep Apnea - rv repair technician: STOP Sleep Apnea - rv repair technician Hx Hypertension Yes: CONTROLLED WITH MEDS 10/03/24 10:22 Hx Sleep Apnea Yes 10/03/24 10:22 CPAP Yes 10/03/24 10:22 BIPAP No 10/03/24 10:22 Do you snore loudly (louder than talking or can be heard Do you often feel tired/ fatigued/ sleepy during daytime? Has anyone observed you stop breathing during sleep? STOP Results Positive 10/03/24 10:22 QUESTION #5 FULL TEXT : Do you snore loudly (louder than talking or can be heard through closed doors)? 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 Specify any problems Hx of Preganancy in last 3 N/A 10/03/24 10:22 Months Nurse Filling Out Transfusion NBUCHER 10/03/24 10:22 & Questions: Date: 10/03/24 10/03/24 10:22 Time: 10:23 10/03/24 10:22 Patient unable to answer at this time (ie. confused, unrespo /Reproduction History /Reproductive History - rv repair technician: /Reproductive Hx- rv repair technician Hx Now Gestational Age (in weeks): EDC: Hx Hx Para Hx Section SAB Active Medications Active Medications: Current Medications Generic Name Dose Route Start Last Admin Trade Name Freq PRN Reason Stop Dose Admin Lactated Ringer's 1,000 mls @ 15 mls/hr 10/07/24 10:45 IV .Q48H PRABHA PFSH Medical History Carpal tunnel syndrome on both sides Cancer Wears glasses Thyroid disease Shingles Inguinal hernia Cardiology follow-up encounter History of stress test Choledocholithiasis Current use of chcf 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 Elevated liver enzymes Pancreatic mass High cholesterol Hx of gastroesophageal reflux (GERD) Hypothyroidism Hypertension Home Medications ?Medication ?Instructions ?Recorded ?Last Taken ?Type lisinopril 40 mg tablet 40 mg PO DAILY blood pressur e 01/31/13 08/31/24 History atorvastatin 40 mg tablet 40 mg PO QHS cholesterol #90 09/05/16 08/30/24 Rx TABLETS gabapentin 300 mg capsule 300 mg PO QHS nerve pain 08/30/24 History metoprolol succinate 50 mg 50 mg PO DAILY blood pressu re 10/22/23 08/31/24 History tablet,extended release 24 hr apixaban 5 mg tablet (Eliquis) 5 mg PO BID blood thinn er 03/26/24 08/31/24 History hydrochlorothiazide 25 mg tablet 25 mg PO DAILY reduce fluid 03/26/24 08/31/24 History levothyroxine 125 mcg tablet 125 mcg PO DAILY disorder of 03/26/24 08/31/24 History thyroid gland aspirin 81 mg tablet,delayed 81 mg PO DAILY 08/31/24 0 08/31/24 History release (Adult Aspirin Regimen) multivitamin (Daily Multi-Vitamin 1 tab PO DAILY 08/3108/31/24 History tablet) Allergy/AdvReac Type Severity Reaction Status Date / Time azithromycin (From Zithromax) Allergy Itching Verified 10/03/24 10:19 bee venom protein (honey bee) AdvReac Swelling Verified 10/03/24 10:19 venom-wasp (wasps) AdvReac Swelling Verified 10/03/24 10:19 Surgical History History of total right hip arthroplasty S/P carpal tunnel release History of tonsillectomy History of ERCP Social History Smoking Status: Never smoker Review of Systems (Anesthesia) ROS Narrative System reviewed and no additional complaints, except as documented. 10/07/24 1050 <Electronically signed by Jeff Bennett MD > Date _ Jeff Bennett MD Cosigner Signature: Date CC: ~ Signed [facility] Work Phone: [phone] Procedure note [facility] Medical Records Department [address] [place] [address] ERCP Report MR#: [id number] Acct: [id number] Name: IGLESIAFRANDaisy DOMINGUEZ Rep #:[id number] : 1945 79 From: Alex Friend DO PCP: Dr. Salvador Diaz MD Status :[facility] Patient Name: Fran Iglesia Procedure Date: 10/07/2024 11:41 AM Date of : 1945 Age: 79 Procedure: ERCP Indications: Stent change, Ampullary adenoma, Bile duct stricture Providers: Alex Sher DO Referring MD: Salvador Diaz Medicines: Monitored Anesthesia Care Patient Profile: This is an 79 year old male. Refer to note in patient chart for documentation of history and physical. Patient has symptoms. His most recent ERCP for biliary evaluation, ERCP for stent and ERCP for stone removal. Complications: No immediate complications. Procedure: Pre-Anesthesia Assessment: - Prior to the procedure, a History and Physical was performed, and patient medications and allergies were reviewed. The patient is competent. The risks and benefits of the procedure and the sedation options and risks were discussed with the patient. All questions were answered and informed consent was obtained. Patient identification and proposed procedure were verified by the physician in the pre-procedure area. Mental Status Examination: alert and oriented. Airway Examination: normal oropharyngeal airway and neck mobility. Respiratory Examination: clear to auscultation. CV Examination: normal. Prophylactic Antibiotics: The patient does not require prophylactic antibiotics. Prior Anticoagulants: The patient has taken no anticoagulant or antiplatelet agents except for NSAID medication. ASA Grade Assessment: II - A patient with mild systemic disease. After reviewing the risks and benefits, the patient was deemed in satisfactory condition to undergo the procedure. The anesthesia plan was to use monitored anesthesia care (MAC). Immediately prior to administration of medications, the patient was re-assessed for adequacy to receive sedatives. The heart rate, respiratory rate, oxygen saturations, blood pressure, adequacy of pulmonary ventilation, and response to care were monitored throughout the procedure. The physical status of the patient was re-assessed after the procedure. After obtaining informed consent, the scope was passed under direct vision. Throughout the procedure, the patient's blood pressure, pulse, and oxygen saturations were monitored continuously. The Duodenoscope was introduced through the mouth, and advanced to the duodenum and used to inject contrast into the bile duct. The ERCP was accomplished without difficulty. The patient tolerated the procedure well. Scope In: 12:10:43 PM Scope Out: 12:32:17 PM Total Procedure Duration Time 0 hours 21 minutes 34 seconds Findings: The machine bunch maker film was normal. The esophagus was successfully intubated under direct vision. The scope was advanced to a normal major papilla in the descending duodenum without detailed examination of the pharynx, larynx and associated structures, and upper GI tract. The upper GI tract was grossly normal. The bile duct was deeply cannulated with the short-nosed traction sphincterotome. Contrast was injected. I personally interpreted the bile duct images. There was brisk flow of contrast through the ducts. Image quality was adequate. Opacification of the entire opacified area was successful. The maximum diameter of the ducts was 10 mm. The lower third of the main bile duct contained a single localized stenosis 6 mm in length. The main bile duct was moderately dilated, acquired. The largest diameter was 10 mm. A cholecystectomy had been performed. A straight Roadrunner wire was passed into the biliary tree. A 5 mm ventral pancreatic sphincterotomy was made with a traction (standard) sphincterotome using ERBE electrocautery. There was no post-sphincterotomy bleeding. To discover objects, the biliary tree was swept with a basket starting at the bifurcation. All stones were removed. Sludge was swept from the duct. One 10 Fr by 5 cm temporary stent was placed 5 cm into the common bile duct. Bile flowed through the stent. The stent was in good position. A standard esophagogastroduodenoscopy scope was used for the examination of the upper gastrointestinal tract. The scope was passed under direct vision through the upper GI tract. Localized moderate mucosal changes characterized by scalloping were found in the ampulla. Coagulation for destruction of remaining portion of lesion in the ampulla using hot biopsy forceps through the ERCP scope was successful. The polyp was removed with a piecemeal technique using a hot biopsy forceps. The polypectomy was performed through the ERCP scope. Resection and retrieval were complete. A standard esophagogastroduodenoscopy scope was used for the examination of the upper gastrointestinal tract. The scope was passed under direct vision through the upper GI tract. A large-mouthed diverticulum was found in the second portion of the duodenum and in the area of the papilla. Impression: - Mucosal changes in the duodenum. - Destruction of remaining portion of lesion in the ampulla with hot biopsy forceps was performed. - Polypectomy was performed. - Duodenal diverticulum. - A single localized biliary stricture was found in the lower third of the main bile duct. The stricture was benign appearing. - The entire main bile duct was moderately dilated, acquired. - The patient has had a cholecystectomy. - Choledocholithiasis was found. Complete removal was accomplished by sweeping. - A pancreatic sphincterotomy was performed. - The biliary tree was swept and sludge was found. - One temporary stent was placed into the common bile duct. Procedure Code(s): --- Professional --- 21559, Endoscopic retrograde cholangiopancreatography (ERCP); with placement of endoscopic stent into biliary or pancreatic duct, including pre- and post-dilation and guide wire passage, when performed, including sphincterotomy, when performed, each stent 76442, Endoscopic retrograde cholangiopancreatography (ERCP); with ablation of tumor(s), polyp(s), or other lesion(s), including pre- and post-dilation and guide wire passage, when performed 84742, Endoscopic retrograde cholangiopancreatography (ERCP); with removal of calculi/debris from biliary/pancreatic duct(s) 34906, 59, Endoscopic retrograde cholangiopancreatography (ERCP); with sphincterotomy/papillotomy 04441, Esophagogastroduodenoscopy, flexible, transoral; with removal of tumor(s), polyp(s), or other lesion(s) by hot biopsy forceps 19754, 26, Endoscopic catheterization of the biliary ductal system, radiological supervision and interpretation CPT copyright 2021 [employer]. All rights reserved. The codes documented in this report are preliminary and upon outpatient coder review may be revised to meet current compliance requirements. Alex Sher DO 10/07/2024 12:44:24 PM This report has been signed electronically. Number of Addenda: 0 Note Initiated On: 10/07/2024 11:41 AM 10/07/24 1244 Date _ Alex Sher DO Cosigner Signature: Date (if indicated) CC: Dr. Salvador Diaz MD; Alex Sher DO ~ Date Dictated: 10/07/24 1141 Date Transcribed: Voltage Regulator Assembler: LUIS Signed [facility]06-09-2025 Procedure note [facility] Medical Records Department [address] [address] Operative Report - CC Letter MR#: [id number] Acct: [id number] Name: FRAN PAREKH Rep #:[id number] : 1945 79 From: Alex Sher DO PCP: Dr. Salvador Diaz MD Status :[facility] 10/07/2024 Salvador Diaz Re : ERCP procedure for Fran Parekh Dear Carin This procedure was performed on Monday, October 07, 2024. My impressions and recommendations are as follows: Impressions : - Mucosal changes in the duodenum. - Destruction of remaining portion of lesion in the ampulla with hot biopsy forceps was performed. - Polypectomy was performed. - Duodenal diverticulum. - A single localized biliary stricture was found in the lower third of the main bile duct. The stricture was benign appearing. - The entire main bile duct was moderately dilated, acquired. - The patient has had a cholecystectomy. - Choledocholithiasis was found. Complete removal was accomplished by sweeping. - A pancreatic sphincterotomy was performed. - The biliary tree was swept and sludge was found. - One temporary stent was placed into the common bile duct. Recommendations : My findings are described in the full procedure note, which is enclosed. If I can be of further assistance, please feel free to contact me at . Sincerely, Alex Sher DO 10/07/2024 12:44:24 PM This report has been signed electronically. 10/07/24 1244 Date _ Alex Sher DO Cosigner Signature: Date (if indicated) CC: Dr. Salvador Diaz MD; Alex Sher DO ~ Date Dictated: 10/07/24 1141 Date Transcribed: Voltage Regulator Assembler: RF Signed [facility]06-09-2025 History and physical note [facility] Medical Records Department [address] [address] History & Physical Exam 10/07/24 1130 MR#: [id number] Acct: [id number] Name: FRAN PAREKH Rep #:[id number] : 1945 79 From: [facility] Friend DO PCP: Dr. Salvador Diaz MD Status :[facility] Location: [place] [address] HPI - General General Date of Admission: 10/07/24 Date of Service: 10/07/24 Chief Complaint: Ampulla with low-grade dysplasia HPI Narrative FRAN PAREKH, is a 79 M who presents for repeat ERCP with ampullectomy. [facility] hospitalization 03.26.24 - 03.28.24 dizziness - consulted for pancreatitis abd/pelvis CT 03.26.24 Lobulated 6 cm pancreatic tail hypoattenuating, cystic appearing lesion previously measuring only up to 3 cm. Cystic neoplastic process is not excluded. Severe distal colonic diverticulosis without focus of diverticulitis. 3 cm exophytic anterior right interpolar renal lesion which does not measure simple fluid attenuation. Recommend nonemergent follow-up renal ultrasound to better characterize as solid neoplastic process is not 6excluded. Gall Bladder US 03.26.24 Fatty infiltration of the liver. MRCP 03.26.24 1. Normal gallbladder and biliary tree. 2. 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 ERCP 03.27.24 The entire main bile duct and left main hepatic duct were dilated, with a stone causing an obstruction. Choledocholithiasis was found. Complete removal was accomplished by biliary sphincterotomy and balloon extraction. A pancreatic sphincterotomy was performed. The ventral pancreatic duct was swept and debris was found. A biliary sphincterotomy was performed. Thebiliary tree was swept. One temporary stent was placed into the common bile duct. OV 121724 pt reports that he is feeling well overall and denies GI symptoms ofconcern at this time. Pt states that he has not had any symptoms since hospitalization. Would like to know when his stent will be removed. ERCP 07.04.24 Mucosal changes in the duodenum. Biopsies were taken with a coldforceps for histology in the ampulla. Choledocholithiasis was found. Complete removal was accomplished by biliary sphincterotomy and balloon extraction. A biliary sphincterotomy was performed. The biliary tree was swept. One stent was removed from the biliary tree. OV 3.25.25 pt reports that he is feeling well overall and denies GI symptoms of concern at this time. Reports continued sciatica pain and reports that in 2 weeks he is having ablation done with Dr Cabezas. 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 Elevated liver enzymes Pancreatic mass High cholesterol Hx of gastroesophageal reflux (GERD) Hypothyroidism Hypertension Home Medications ?Medication ?Instructions ?Recorded ?Last Taken ?Type lisinopril 40 mg tablet 40 mg PO DAILY blood pressur e 01/31/13 10/06/24 History atorvastatin 40 mg tablet 40 mg PO QHS cholesterol #90 09/05/16 10/06/24 Rx TABLETS gabapentin 300 mg capsule 300 mg PO QHS nerve pain 10/06/24 History metoprolol succinate 50 mg 50 mg PO DAILY blood pressu re 10/22/23 10/06/24 History tablet,extended release 24 hr apixaban 5 mg tablet (Eliquis) 5 mg PO BID blood thinn er 03/26/24 10/03/24 History hydrochlorothiazide 25 mg tablet 25 mg PO DAILY reduce fluid 03/26/24 10/06/24 History levothyroxine 125 mcg tablet 125 mcg PO DAILY disorder of 03/26/24 10/06/24 History thyroid gland aspirin 81 mg tablet,delayed 81 mg PO DAILY 08/31/24 0 10/03/24 History release (Adult Aspirin Regimen) multivitamin (Daily Multi-Vitamin 1 tab PO DAILY 08/3110/06/24 History tablet) Allergy/AdvReac Type Severity Reaction Status Date / Time azithromycin (From Zithromax) Allergy Itching Verified 10/07/24 10:51 bee venom protein (honey bee) AdvReac Swelling Verified 10/07/24 10:51 venom-wasp (wasps) AdvReac Swelling Verified 10/07/24 10:51 Surgical History History of total right hip arthroplasty S/P carpal tunnel release History of tonsillectomy History of ERCP Social History Smoking Status: Never smoker ROS Constitutional Constitutional: Denies fatigue, fever(s), poor appetite, weight gain or weight loss Gastrointestinal Gastrointestinal: Denies belching, bloating, change in bowel habits, change in stool character, chewing difficulty, coffee ground emesis, constipation, cramping, diarrhea, dyspepsia, dysphagia, earlysatiety, excessive flatus, fecalincontinence, heartburn, hematemesis, hematochezia, hemorrhoids, loose stools, melena, nausea, odynophagia, rectal bleeding, tenesmus, vomiting or weight changes Vital Signs Vital Signs Vital Signs: 10/07/24 10:53 10/07/24 10:53 Temperature 97.6 F L Temperature Source Temporal Pulse Rate 66 Respiratory Rate 16 Respiratory Pattern Normal Blood Pressure 158/80 H Blood Pressure Mean 106 Blood Pressure Source Monitor Blood Pressure Position Supine Blood Pressure Location Right Arm Pulse Ox 97 Oxygen Delivery Method Room Air Weight Weight: 289 lb 14.526 oz Body Mass Index (BMI) 41.5 Physical Exam Const alert, oriented x3, no apparent distress and healthy appearing General Appearance: cooperative GI normal to inspection, nondistended, normoactive bowel sounds, soft to palpation,non-tender and non-distended Percussion: normal to percussion Rectal Exam: deferred Assessment & Plan Assessment/Plan (1) Ampulla of Vater mass: (2) Biliary stricture: PLAN: Assessment and Plan Assessment and Plan (1) Pancreatitis: Status: Acute (2) Choledocholithiasis: Status: Acute (3) Pancreatic cyst: Status: Acute (4) Ampulla of Vater mass: Status: Acute Plan 78-year-old gentleman who presented to the emergency room with abdominal pain, jaundice and discovered to have elevated LFTs and biochemical and radiologic evidence of 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 He was also discovered to have multiple pancreatic cysts w ith the largest one being in the pancreatic tail at 4.2 cm. Differential diagnosis for this would be pseudocyst from previous episodes of acute pancreatitis, less likely serous cystoadenoma, IPMN andless likely mucinous cystoadenoma. He underwent ERCP with stone removal and temporary stent placement for biliary stricture. We performed a repeat ercp with stent removal. Findings: A biliary stent was visible on the machine bunch maker film. The esophagus was successfully intubated under direct vision. The scope was advanced to a normal major papilla in the descending duodenum without detailed examination of the pharynx, larynx and associated structures, and upper GI tract. The upper GI tract was grossly normal. A long 0.025 inch Jagwire was passed into the biliary tree. The short-nosed traction sphincterotome was passed over the guidewire and the bile duct was then deeply cannulated. Contrast was injected. I personally interpreted the bile duct images. Ductal flow of contrast was adequate. Image quality was adequate. Contrast extended to the biliary pancreatic junction. Contrast extended to the main bile duct. Contrast extended to the cystic duct. Contrast extended to the gallbladder. Contrast extended to the bifurcation. Contrast extended to the hepatic ducts. Contrast extended to the entire biliary tree. A 5 mm biliary sphincterotomy was made with a braided traction (standard) sphincterotome using ERBE electrocautery. There was no post-sphincterotomy bleeding. The biliary tree was swept with a 12 mm balloon starting at the upper third of the main bile duct, middle third of the main bile duct, lower third of the main duct, bifurcation, left intrahepatic duct(s), left main hepatic duct, right intrahepatic duct(s) and right main hepatic duct. All stones were removed. One stent was removed from the biliary tree using a snare and sent for cytology. The stent was found to be partially occluded via the water column test. A standard esophagogastroduodenoscopy scope was used for the examination of the upper gastrointestinal tract. The scope was passed under direct vision through the upper GI tract. Localized mild mucosal changes characterized by granularity were found in the area of the papilla. Biopsies were taken in the ampulla through the esophagogastroduodenoscope with the cold forceps for histology. Impression: - Mucosal changes in the duodenum. - Biopsies were taken with a cold forceps for histology in the ampulla. - Choledocholithiasis was found. Complete removal was accomplished by biliary sphincterotomy and balloon extraction. - A biliary sphincterotomy was performed. - The biliary tree was swept. - One stent was removed from the biliary tree. MICROSCOPIC DIAGNOSIS Duodenum, ampulla, biopsy: - Fragments of inflamed small intestinal mucosa with focal low dysplasia and reactive changes ? see Comment. - Focal granulation tissue consistent with ulceration - IHC for CMV (cytomegalovirus) is negative (performed at [facility]) - IHC for p53 is wild-type. - IHC for Ki67 is not significantly increased We will schedule him for a repeat endoscopic procedure for of his ampulla due tothe finding of low grade dysplasia. 10/07/24 1132 Cosigner Signature (if applicable): CC: Dr. Salvador Diaz MD; Alex Friend, DO~ Signed [facility]06[facility]09[facility] Consult note [facility] Medical Records Department [address] [place] [address] Pre-Anesthesia Evaluation 10/07/24 1049 MR#: [id number] Acct: [id number] Name: FRAN PAREKH Rep #:[id number] : 1945 79 From: Jeff Bennett MD PCP: Dr. Salvador Diaz MD Status :[facility] Y Race: C Location: [place] [address]- ASA Classification* ASA Classification ASA Classification: 2 Assessment & Plan Anesthesia* Anesthesia Assessment Anesthesia Assessment: Discussed sedation and/or anesthesia options, risks, benefits, and alternatives with patient/parents/legal guardian/POA. Questions invited. The patient/parents/legal guardian/POA seems to understand and agrees to proceedwith anesthesia plan. Reviewed the physical assessment, medical history, allergy history and patient home medications list prior to surgery/procedure/anesthetic and documented any changes. Performed airway and anesthesia risk assessments. Anesthesia Type Anesthesia Type: MAC ( General anesthesia backup.) Anesthesia Focused Assessment* Airway Assessment Mouth opens: >3 cm Mallampati Score: II Labs Anesthesia Preop lab: CBC WBC 12.6 K/mm3 (4.4-11.0) H 08/31/24 11:42 5 RBC 4.96 M/mm3 (4.6-6.2) 08/31/24 11:42 08/31/24 Hgb 15.9 g/dL (13.0-16.5) 08/31/24 11:42 08/31/24 Hct 46.1 % (40-54) 08/31/24 11:42 08/31/24 Plt Count 225 K/mm3 (150-450) 08/31/24 11:42 08/31/24 CHEMISTRY Potassium 5.0 mmol/L (3.3-5.1) 08/31/24 11:42 08/31/24 Sodium 139 mmol/L (133-145) 08/31/24 11:42 08/31/24 Magnesium 2.6 mg/dL (1.6-2.6) 03/27/24 06:35 03/27/24 BUN 21 mg/dL (4-19) H 08/31/24 11:42 08/31/24 Creatinine 1.46 mg/dL (0.70-1.20) H 08/31/24 11:42 Glucose 135 mg/dL (70-99) H 08/31/24 11:42 08/31/24 TSH 0.51 uIU/mL (0.358-3.74) 09/04/16 01:48 COAG PT 14.4 SECONDS (11.7-14.9) 03/26/24 02:15 Pre-Assessment Diagnosis/Proposed Procedure Planned Operative Procedure(s): ERCP stent placement. 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 10/03/24 10:22 Any Problems With Anesthesia No 10/03/24 10:22 Cholinesterase deficiency No 10/03/24 10:22 You/Your Family Experience No 10/03/24 10:22 fever (hyperthermia) with Relationship Recent Exposure to Contagious No 07/04/24 08:49 Disease Does patient have nerve No 10/03/24 10:22 stimulator Patient instructed to have device shut off --Does patient have Pacemaker or ICD? When Was Last Pacemaker Check QUESTION #4 FULL TEXT: You/Your Family Experience fever (hyperthermia) with Anesthesia Last Oral Intake Last Oral intake: Last Oral Intake NPO since Meds taken in AM with sips of water? 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 Female No 10/03/24 10:22 HX of Motion Sickness No 10/03/24 10:22 HX of N/V After Surgery No 10/03/24 10:22 Non-Smoker Yes 10/03/24 10:22 Duration of Surgery greater No 10/03/24 10:22 than 60 minutes Number of Risk Factors 1 10/03/24 10:22 PONV Score Low Risk 10/03/24 10:22 Height & Weight Height & Weight: Anesthesia: Height & Weight Height 5 ft 10 in 09/17/24 09:36 Respiratory Assessment Respiratory Assessment - rv repair technician: Respiratory Tract Infection Hx - rv repair technician Hx Respiratory Tract Infection No 10/03/24 10:22 STOP Sleep Apnea STOP Sleep Apnea - rv repair technician: STOP Sleep Apnea - rv repair technician Hx Hypertension Yes: CONTROLLED WITH MEDS 10/03/24 10:22 Hx Sleep Apnea Yes 10/03/24 10:22 CPAP Yes 10/03/24 10:22 BIPAP No 10/03/24 10:22 Do you snore loudly (louder than talking or can be heard Do you often feel tired/ fatigued/ sleepy during daytime? Has anyone observed you stop breathing during sleep? STOP Results Positive 10/03/24 10:22 QUESTION #5 FULL TEXT : Do you snore loudly (louder than talking or can be heard through closeddoors)? 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 Specify any problems Hx of Preganancy in last 3 N/A 10/03/24 10:22 Months Nurse Filling Out Transfusion NBUCHER 10/03/24 10:22 & Questions: Date: 10/03/24 10/03/24 10:22 Time: 10:23 10/03/24 10:22 Patient unable to answer at this time (ie. confused, unrespo /Reproduction History /Reproductive History - rv repair technician: /Reproductive Hx- rv repair technician Hx Now Gestational Age (in weeks): EDC: Hx Hx Para Hx Section SAB Active Medications Active Medications: Current Medications Generic Name Dose Route Start Last Admin Trade Name Freq PRN Reason Stop Dose Admin Lactated Ringer's 1,000 mls @ 15 mls/hr 10/07/24 10:45 IV .Q48H PRABHA PFSH Medical History Carpal tunnel syndrome on both sides Cancer Wears glasses Thyroid disease Shingles Inguinal hernia Cardiology follow-up encounter History of stress test Choledocholithiasis Current use of [facility] 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 Elevated liver enzymes Pancreatic mass High cholesterol Hx of gastroesophageal reflux (GERD) Hypothyroidism Hypertension Home Medications ?Medication ?Instructions ?Recorded ?Last Taken ?Type lisinopril 40 mg tablet 40 mg PO DAILY blood pressur e 01/31/13 08/31/24 History atorvastatin 40 mg tablet 40 mg PO QHS cholesterol #90 09/05/16 08/30/24 Rx TABLETS gabapentin 300 mg capsule 300 mg PO QHS nerve pain 08/30/24 History metoprolol succinate 50 mg 50 mg PO DAILY blood pressu re 10/22/23 08/31/24 History tablet,extended release 24 hr apixaban 5 mg tablet (Eliquis) 5 mg PO BID blood thinn er 03/26/24 08/31/24 History hydrochlorothiazide 25 mg tablet 25 mg PO DAILY reduce fluid 03/26/24 08/31/24 History levothyroxine 125 mcg tablet 125 mcg PO DAILY disorder of 03/26/24 08/31/24 History thyroid gland aspirin 81 mg tablet,delayed 81 mg PO DAILY 08/31/24 0 08/31/24 History release (Adult Aspirin Regimen) multivitamin (Daily Multi-Vitamin 1 tab PO DAILY 08/3108/31/24 History tablet) Allergy/AdvReac Type Severity Reaction Status Date / Time azithromycin (From Zithromax) Allergy Itching Verified 10/03/24 10:19 bee venom protein (honey bee) AdvReac Swelling Verified 10/03/24 10:19 venom-wasp (wasps) AdvReac Swelling Verified 10/03/24 10:19 Surgical History History of total right hip arthroplasty S/P carpal tunnel release History of tonsillectomy History of ERCP Social History Smoking Status: Never smoker Review of Systems (Anesthesia) ROS Narrative System reviewed and no additional complaints, except as documented. 10/07/24 1050 > Date _ Jeff Bennett MD Cosigner Signature: Date CC: ~ Signed [facility]05-28-2025 NoteHNO ID: [id number] Author: VICTOR MANUEL SAVAGE, DO Service: ? Author Type: Physician Type: Progress Notes Filed: 09/25/2024 08:38 Note Text: PULMONARY HYPERTENSION CLINIC Initial Visit September 25, 2024 I had the pleasure of seeing Fran Parekh in consultation at the request of for Pulmonary Hypertension. Summary of this visit and my recommendations will be relayed to the referring physician by way of electronic communication or by mail. PCP: Agnes Diaz MD Referring Provider: Subjective: I had the pleasure of seeing Fran Parekh in consultation for continued evaluation and and management of Pulmonary Hypertension. Summary of this visit and my recommendations will be relayed to the referring physician and primary care physician by way of electronic communication or by mail. HPI: Mr. Parekh is a 78 year old male with a PMH of DVT/PE on apixaban, LE venous incompetency (R. femoral vein and L. GSV) who presents today for evaluation of pulmonary hypertension. INTERVAL HISTORY: diagnosed with gallstone pancreatitis in 03/2024 with a stricture which required stenting. Biopsy showed precancerous cells in the pancreas. He is set for an upcoming endoscopic procedure and was planned to hold 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 ~3 days prior. He is also getting lumbar steroid injections / procedures and eliquis is held ~3 days prior to each episode (he has had this ~4-5 times in the past year). SYMPTOMS of PH / Right Heart failure?: Denies worsening lower extremity edema (notes mild bilateral swelling following remote hip surgery >5 years ago), abdominal swelling/bloating/distension or early satiety, palpitations, chest tightness, lightheadedness, dizziness, syncope. She denies history of hospitalizations for heart failure. Additional History: MEDICATIONS: atorvastatin (LIPITOR) 40 mg tablet Take 1 tablet by mouth once daily. metoprolol succinate ER (TOPROL XL) 50 mg 24 hr tablet Take 1 tablet by mouth once daily. lisinopril (ZESTRIL) 40 mg tablet Take 1 tablet by mouth once daily. apixaban (ELIQUIS) 5 mg tab(s) Take 1 tablet by mouth two times a day. levothyroxine (SYNTHROID) 125 mcg tablet TAKE 1 TABLET BY MOUTH EVERY DAY ON AN EMPTY STOMACH FOR THYROID hydroCHLOROthiazide 25 mg tablet Take 1 tablet by mouth once daily. tiZANidine (ZANAFLEX) 2 mg tablet Take 1 tablet by mouth every 6 hours as needed. ammonium lactate (LAC-HYDRIN) 12 % cream Apply to affected area as needed. Apply on thick skin gabapentin (NEURONTIN) 300 mg capsule Take 300 mg by mouth daily at bedtime. CPAP AutoPAP [id number]. Mask per preference, tubing, filters, humidity. [employer]. Dx: G47.33. Fax 30 day compliance report to [phone]. CPAP Please provide mask fitting. Pt with subjective and some degree objective leaks. Prefers nasal type mask. Thank you. DME = [facility] acetaminophen 650 mg CR tablet Take 650 mg by mouth as needed. aspirin, enteric coated (ASPIRIN, ENTERIC COATED) 81 mg EC tablet Take 81 mg by mouth once daily. MULTIVITAMIN,TX-MINERALS ORAL TAB Take one(1) tablet daily. 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/2018 R hip, S/P SUSAN ASHD (arteriosclerotic heart disease) 09/14/2016 Bilateral carpal tunnel syndrome Bilateral lower extremity edema 2/2 venous insufficiency BPH (benign prostatic hyperplasia) Choledocholithiasis 04/05/2024 Chronic 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 history of unprovoked PE Class 2 obesity due to excess calories with body mass index (BMI) of 38.0 to 38.9 in adult Diverticulosis of colon (without mention of hemorrhage) Essential hypertension, benign History of pulmonary embolism Hyperlipidemia LDL goal <100 09/14/2016 Hypothyroidism Intention tremor 05/07/2012 Internal derangement of right knee 05/07/2012 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 Chowdary in [place] Stage 3a chronic kidney disease (HCC) Venous insufficiency PAST SURGICAL HISTORY Procedure Laterality Date ARTHRP ACETBLR/PROX FEM PROSTC AGRFT/ALGRFT Right 06/03/2019 Hip replacement, total COLONOSCOPY FLX DX W/COLLJ SPEC WHEN PFRMD 04/21/11 Repeat 10 [id number] LASER GREENLIGHT prostate, [place] NEUROPLASTY AND/TRANSPOS MEDIAN NRV CARPAL TUNNE Left 01/17/2020 Left carpal tunnel release NEUROPLASTY AND/TRANSPOS MEDIAN NRV CARPAL TUNNE Right 03/04/2020 Right carpal tunnel release RPR UMBILICAL HRNA 5 YRS/> REDUCIBLE TONSILLECTOMY PRIMARY/SECONDARY Tonsillectomy FAMILY HISTORY Problem Relation Age of Onset Heart Mother other (Myocardial infarction) Mother 81 d (more content not included)...[id number] of Present illness Narrative* Victor Manuel Savage, - 09/25/2024 8:23 AM EDT Images from the original note were not included. PULMONARY HYPERTENSION CLINIC Initial Visit September 25, 2024 I had the pleasure of seeing Fran Tarah Iglesia in consultation at the request of for Pulmonary Hypertension. Summary of this visit and my recommendations will be relayed to the referring physician by way of electronic communication or by mail. PCP: Agnes Diaz MD Referring Provider: Subjective: I had the pleasure of seeing Fran Tarah Picharodsanaz in consultation for continued evaluation and and management of Pulmonary Hypertension. Summary of this visit and my recommendations will be relayed to the referring physician and primary care physician by way of electronic communication or by mail. HPI: Mr. Parekh is a 78 year old male with a PMH of DVT/PE on apixaban, LE venous incompetency (R. femoral vein and L. GSV) who presents today for evaluation of pulmonary hypertension. INTERVAL HISTORY: diagnosed with gallstone pancreatitis in 03/2024 with a stricture which required stenting. Biopsy showed precancerous cells in the pancreas. He is set for an upcoming endoscopic procedure and was planned to hold 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 ~3 days prior. He is also getting lumbar steroid injections / procedures and eliquis is held ~3 days prior to each episode (he has had this ~4-5 times in the past year). SYMPTOMS of PH / Right Heart failure?: Denies worsening lower extremity edema (notes mild bilateralswelling following remote hip surgery >5 years ago), abdominal swelling/bloating/distension or early satiety, palpitations, chest tightness, lightheadedness, dizziness, syncope. She denies historyof hospitalizations for heart failure. Additional History: MEDICATIONS: atorvastatin (LIPITOR) 40 mg tablet Take 1 tablet by mouth once daily. metoprolol succinate ER (TOPROL XL) 50 mg 24 hr tablet Take 1 tablet by mouth once daily. lisinopril (ZESTRIL) 40 mg tablet Take 1 tablet by mouth once daily. apixaban (ELIQUIS) 5 mg tab(s) Take 1 tablet by mouth two times a day. levothyroxine (SYNTHROID) 125 mcg tablet TAKE 1 TABLET BY MOUTH EVERY DAY ON AN EMPTY STOMACH FOR THYROID hydroCHLOROthiazide 25 mg tablet Take 1 tablet by mouth once daily. tiZANidine (ZANAFLEX) 2 mg tablet Take 1 tablet by mouth every 6 hours as needed. ammonium lactate (LAC-HYDRIN) 12 % cream Apply to affected area as needed. Apply on thick skin gabapentin (NEURONTIN) 300 mg capsule Take 300 mg by mouth daily at bedtime. CPAP AutoPAP [id number]. Mask per preference, tubing, filters, humidity. [employer]. Dx: G47.33. Fax 30 day compliance report to [phone]. CPAP Please provide mask fitting. Pt with subjective and some degree objective leaks. Prefers nasaltype mask. Thank you. DME = [facility] acetaminophen 650 mg CR tablet Take 650 mg by mouth as needed. aspirin, enteric coated (ASPIRIN, ENTERIC COATED) 81 mg EC tablet Take 81 mg by mouth once daily. MULTIVITAMIN,TX-MINERALS ORAL TAB Take one(1) tablet daily. 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/2018 R hip, S/P SUSAN ASHD (arteriosclerotic heart disease) 09/14/2016 Bilateral carpal tunnel syndrome Bilateral lower extremity edema 2/2 venous insufficiency BPH (benign prostatic hyperplasia) Choledocholithiasis 04/05/2024 Chronic 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 history of unprovoked PE Class 2 obesity due to excess calories with body mass index (BMI) of 38.0 to 38.9 in adult Diverticulosis of colon (without mention of hemorrhage) Essential hypertension, benign History of pulmonary embolism Hyperlipidemia LDL goal <100 09/14/2016 Hypothyroidism Intention tremor 05/07/2012 Internal derangement of right knee 05/07/2012 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 Chowdary in [place] Stage 3a chronic kidney disease (HCC) Venous insufficiency PAST SURGICAL HISTORY Procedure Laterality Date ARTHRP ACETBLR/PROX FEM PROSTC AGRFT/ALGRFT Right 06/03/2019 Hip replacement, total COLONOSCOPY FLX DX W/COLLJ SPEC WHEN PFRMD 04/21/11 Repeat 10 [id number] LASER GREENLIGHT prostate, [place] NEUROPLASTY &/TRANSPOS MEDIAN [...] Social History Tobacco Use Smoking status: Never Passive exposure: Past Smokeless tobacco: Never Vaping Use Vaping status: Never Used Substance Use Topics Alcohol use: No Drug use: No Objective: PHYSICAL EXAM: VITALS: There were no vitals taken for this visit. General appearance: Alert, NAD DATA: Diagnostic tests reviewed for today's visit, films/specimens were personally reviewed by me: Most recent lab and imaging results Labs: DAVID No results found for: DAVID, ANAQL, ANAEIA Rheumatoid Factor No results found for: RF TSH TSH Date Value 08/15/2024 7.390 mIU/L 04/05/2021 0.486 uU/mL HIV No results found for: HIVSCN, [id number]] Hepatitis B Surface Antigen No results found for: HBSAGR Hepatitis C Hep C Antibody IA (no units) Date Value 05/06/2016 Negative NT PRO BNP Lab Results Component Value Date PBNP 2,953 (H) 10/23/2023 Chemistries Lab Results Component Value Date NA 139 08/15/2024 NA 140 10/27/2023 NA 141 10/26/2023 K 4.4 08/15/2024 K 4.4 10/27/2023 K 4.3 10/26/2023 CHLOR 104 08/15/2024 CHLOR 107 10/27/2023 CHLOR 105 10/26/2023 CO2 22 08/15/2024 CO2 20 (L) 10/27/2023 CO2 23 10/26/2023 BUN 19 08/15/2024 BUN 25 (H) 10/27/2023 BUN 24 10/26/2023 CREAT 1.40 (H) 08/15/2024 CREAT 1.32 (H) 10/27/2023 CREAT 1.34 (H) 10/26/2023 EGFRAA 57 02/01/2021 EGFRAA >60 07/30/2020 EGFRAA 60 04/25/2020 EGFROTH 51 (L) 08/15/2024 EGFROTH 55 (L) 10/27/2023 EGFROTH 54 (L) 10/26/2023 GLUC 123 (H) 08/15/2024 GLUC 103 (H) 10/27/2023 GLUC 118 (H) 10/26/2023 ANION 13 08/15/2024 ANION 13 10/27/2023 ANION 13 10/26/2023 Liver Function Lab Results Component Value Date AST 25 08/15/2024 AST 19 10/23/2023 AST 23 05/15/2023 ALT 22 08/15/2024 ALT 18 10/23/2023 ALT 23 05/15/2023 ALKPHOS 85 08/15/2024 ALKPHOS 75 10/23/2023 ALKPHOS 76 05/15/2023 TBILI 0.5 08/15/2024 TBILI 0.5 10/23/2023 TBILI 0.5 05/15/2023 CBC Lab Results Component Value Date HB 14.5 01/19/2024 HB 14.6 10/26/2023 HB 14.3 10/25/2023 HCT 44.2 01/19/2024 HCT 41.8 10/26/2023 HCT 42.2 10/25/2023 WBC 10.31 01/19/2024 WBC 10.66 10/26/2023 WBC 10.95 10/25/2023 PLT 255 01/19/2024 PLT 165 10/26/2023 PLT 180 10/25/2023 Assessment and Plan: IMPRESSION: 78 year old male with history of MARTIN on CPAP and central obesity found to have unprovoked acute bilateral pulmonary embolism (submassive, intermediate high risk) and proximal RLE DVT, LE venous incompetency (R. femoral vein and L. GSV) who presents for follow up. On day of PE in 10/22/2023, he presented due to abrupt onset of exertional dizziness with ~ one week of preceding dyspnea. This has since resolved ~2-3 weeks post-discharge. He denies functional limitation but his does note he breathes heavy and is not sure how long this has been going on. His initial echo has shown increased RV:LV ratio dating back to 10/2020. CTPE from 09/2023 does showseemingly acute thrombus without stigmata of chronic PE ; also study shows suggestion of RA pressure overload based on contrast reflux, increased RA/RV size, with PA:Ao ratio of 1:1. Echocardiogram at time of PE shows mild-moderate RV dilation, systolic septal flattening, with RVSP 86. Repeat VQ scan on 11/22/2023 does show FEW mismatched defects in areas of prior PE. Repeat echocardiogram on 01/16/2024 is limited, RV does appear dilated though noted to be normal however radial and longitudinal RV systolic function Is preserved. TR assesmsent is insufficient. Septal position is nownormal. He has had a few interruptions of 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 for procedures (3 days at a time pre-procedurally) and has otherwise continued to feel asymptomatic from PE/RHF (WHO FC I though limited by back pain) standpoint and is tolerating OAC. WHO FC I. Recommendation: - if there is recurrent symptoms or suggestion of PH, will repeat echo +/- RHC +/- CPET - continue apixaban 5mg BID indefinitely given unprovoked PE with hypercoag panel after6 month period per Dr. Dorene Pepe (we willl continue to monitor toxicities/untoward side effects) - continued evaluation of abdominal / pancreatic stricture RTC in one year, or sooner if symptoms or questions arise. SIGNATURE: Victor Manuel Savage DO [facility] DATE of SERVICE: September 25, 2024 8:33 AM [facility] NoteHNO ID: [id number] Author: COLE ALMANZA MD Service: ? Author Type: Physician Type: Progress Notes Filed: 08/31/2024 11:11 Note Text: [facility] Triage Note: Patient presents to the [facility] with complaint of abdominal pain for the last day. He is also experiencing current sciatic pain and taking [place]. He has been unable to take pain medicine today because of upset stomach and wants to avoid further aggravating abdominal pain. He is concerned he may have constipation but also has history of diverticulitis. He is in apparent discomfort in the waiting room. He was offered the opportunity to have initial evaluation here in the [facility] with likely referral where imaging is available. He chooses to go to the ED for evaluation instead. He declines EMS transfer.[facility]05-03-2025 History of Present illness Narrative* Cole Almanza MD - 08/31/2024 11:07 AM EDT [facility] Triage Note: Patient presents to the [facility] with complaint of abdominal pain for the last day. He is also experiencing current sciatic pain and taking [place]. He has been unable to take pain medicine today because of upset stomach and wants to avoid further aggravating abdominal pain. He is concerned he may have constipation but also has history of diverticulitis. He is in apparent discomfort in the waiting room. He was offered the opportunity to have initial evaluation here in the [facility] care with likely referral where imaging is available. He chooses to go to the ED for evaluation instead. He declines EMS transfer. documented in this encounterC[facility]-2025 Consult note Author Jeff Bennett [facility] Note Date/Time October 07, 2024 1:25p m [facility] Medical Records Department [address] [place] [address] Anesthesia Postop Eval II 10/07/24 1324 MR#: [id number] Acct: [id number] Name: FRAN PAREKH Rep #:[id number] 14 : 1945 79 From: Jeff Bennett MD PCP: Dr. Salvador Diaz MD Status :REG SDC Y Race: C Location: [place] [address] Anesthesia Postop Eval I Sum Postop Eval Completion status Anesthesia document: Postop Eval 1 completed: Yes Anesthesia Postop Eval I Summary Anesthesia Postop Eval I Summary: Anesthesia Postop Eval I: Assessment Summary Airway patent Yes 10/07/24 12:50 [email or web address] Spontaneous unlabored Yes 10/07/24 12:50 [email or web address] respirations Mental status Awake,Calm 10/07/24 12:50 [email or web address] nausea No 10/07/24 12:50 [email or web address] Vomiting No 10/07/24 12:50 [email or web address] Anesthesia Postop Eval I: Fluid Summary Crystalloid volume administer 600 10/07/24 12:50 [email or web address] (ml) Colloids volume administered ( ml) Blood Product volume administered (ml) Total IV fluid infused 600 10/07/24 12:50 [email or web address] Anesthesia Postop Eval I: Summary Notes Anesthesia Complication No 10/07/24 12:50 [email or web address] Anesthesia Complication Comment: Post-operative progress note Anesthesia: Postop Eval II Evaluation Mental status: Awake Pain Level: 0 nausea: No Vomiting: No 10/07/24 1325 <Electronically signed by Jeff Bennett MD > Date _ Jeff Bennett MD Cosigner Signature: Date CC: ~ Signed [facility] Work Phone: [phone] 193-731904-29-2025 Telephone encounter Note* Telephone Encounter - Sissy Campbell LPN - 08/27/2024 12:28 PM EDT Completed form faxed back as requested. Sissy Campbell LPN [facility]04-29-2025 Miscellaneous Notes* Telephone Encounter - Sissy Campbell LPN - 08/27/2024 12:28 PM EDT Completed form faxed back as requested. Sissy Campbell LPN * Telephone Encounter - Agnes Diaz MD - 08/27/2024 12:11 PM EDT He is on Eliquis. Ok to stop 2 days prior to procedure. Form completed. * Telephone Encounter - Sissy Campbell LPN - 08/27/2024 11:57 AM EDT Received form from [facility] regarding upcoming procedure and request to stop coumadin. Form forwarded to provider's desk for review. Sissy Campbell LPN documented in this encounterC[facility]04-29-2025 Telephone encounter Note * Telephone Encounter - Agnes Diaz MD - 08/27/2024 12:11 PM EDT He is on Eliquis. Ok to stop 2 days prior to procedure. Form completed. [facility]04-29-2025 Telephone encounter Note* Telephone Encounter - Sissy Campbell LPN - 08/27/2024 11:57 AM EDT Received form from [facility] regarding upcoming procedure and request to stop coumadin. Form forwarded to provider's desk for review. Sissy Campbell LPN [facility]04-18-2025 Telephone encounter Note* Telephone Encounter - Marilia Orozco APRN.CNP - 08/16/2024 1:24 PM EDT Order for TSH placed. Marilia Orozco APRN.CNP [facility]04-18-2025 Miscellaneous Notes* Telephone Encounter - Marilia Orozco APRN.CNP - 08/16/2024 1:24 PM EDT Order for TSH placed. Marilia Orozco APRN.CNP * Telephone Encounter - Katlyn Melissa RN - 08/16/2024 1:13 PM EDT Pt called and is notified of providers results and instructions. Pt voices understanding, after I notified that she wanted him to start taking 2 pills every Monday and one pill every other day. Please place lab orders for recheck on Thyroid. Katlyn Melissa RN * Telephone Encounter - Eunice Bruce LPN - 08/16/2024 10:20 AM EDT Telephone call placed to patient. Message left to call office back for update. Eunice Bruce LPN * Telephone Encounter - Marilia Orozco APRN.CNP - 08/16/2024 6:37 AM EDT TSH shows he is not getting enough replacement. Would like him to take ONE Extra tablet on MONDAY ONLY and then one tablet all other days. Make sure to take on empty stomach 30 minutes before other medication or eating. Recheck level in 6-8 weeks. Triglycerides have increased some- recommend lower calorie diet and aim for at least 150 minutes of exercise per week. Kidney function has decreased but is stable- continue to avoid NSAID products, eat low salt diet and stay well hydrated. A1c is stable at 6.0%. Marilia Orozco APRN.RUBÉN [facility] Telephone encounter Note * Telephone Encounter - Katlyn Melissa RN - 08/16/2024 1:13 PM EDT Pt called and is notified of providers results and instructions. Pt voices understanding, after I notified that she wanted him to start taking 2 pills every Monday and one pill every other day. Please place lab orders for recheck on Thyroid. Katlyn Melissa RN [facility]04-18-2025 Telephone encounter Note* Telephone Encounter - Eunice Bruce LPN - 08/16/2024 10:20 AM EDT Telephone call placed to patient. Message left to call office back for update. Eunice Bruce LPN [facility]04-18-2025 Telephone encounter Note* Telephone Encounter - Marilia Orozco APRN.RUBÉN - 08/16/2024 6:37 AM EDT TSH shows he is not getting enough replacement. Would like him to take ONE Extra tablet on MONDAY ONLY and then one tablet all other days. Make sure to take on empty stomach 30 minutes before other medication or eating. Recheck level in 6-8 weeks. Triglycerides have increased some- recommend lower calorie diet and aim for at least 150 minutes of exercise per week. Kidney function has decreased but is stable- continue to avoid NSAID products, eat low salt diet and stay well hydrated. A1c is stable at 6.0%. Marilia Orozco APRN.SUPERVISOR [employer] [facility]04-15-2025 History of Present illness Narrative* Marilia Orozco APRN.RUBÉN - 08/13/2024 11:40 AM EDT 08/12/2024 Patient presents with: Yearly Exam SUBJECTIVE: This is a 78 year old that is here today for Above Complaints. MARTIN: wears CPAP nightly HTN: Patient is compliant with meds Yes Monitors bp at home: No. Denies side effects: No. Chest pain: No. Dyspnea: No. Edema: Yes. Palpitations: No. Syncope: No. Headache: No. Dizziness: No. Prediabetes: does not routinely follow low carbohydrate diet. Denies visual changes, polyuria or polydipsia HYPOTHYROIDISM: taking synthroid as prescribed without side effects HYPERLIPIDEMIA: Patient is taking medications: Yes. Patient is watching diet: No. Patient denies myalgias: Yes. Patient denies gi upset: Yes 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 Recent ERCP on 07/04/2024 for biliary sphincterotomy and removal of one stent from biliary tree. Will be going in the 07 of October for a biopsy since they found something precancerous on his EGD. He is unsure what area they are doing the biopsy on Hx of saddle PE and pulmonary HTN: follows with pulmonology with last office visit on 01/18/2024. No medication changes made at that time. Taking Eliquis as prescribed without side effects. Next office visit scheduled for Last Monday had left sided back ablation by Dr. Eduardo. Pain maybe a little better. Has follow-up in Monday PAST MEDICAL HISTORY Diagnosis Date Angina at [...] of skin of nose Dr. Chowdary in [place] Stage 3a chronic kidney disease (HCC) Venous insufficiency ALLERGIES Norvasc [Amlodipine Besylate], Venom-Wasp, and Zithromax [Azithromycin] MEDICATIONS Current Outpatient Medications Medication Sig metoprolol succinate ER (TOPROL XL) 50 mg 24 hr tablet Take 1 tablet by mouth once daily. lisinopril (ZESTRIL) 40 mg tablet Take 1 tablet by mouth once daily. apixaban (ELIQUIS) 5 mg tab(s) Take 1 tablet by mouth two times a day. levothyroxine (SYNTHROID) 125 mcg tablet TAKE 1 TABLET BY MOUTH EVERY DAY ON AN EMPTY STOMACH FOR THYROID hydroCHLOROthiazide 25 mg tablet Take 1 tablet by mouth once daily. cefdinir (OMNICEF) 300 mg capsule Take 300 mg by mouth two times a day. tiZANidine (ZANAFLEX) 2 mg tablet Take 1 tablet by mouth every 6 hours as needed. ammonium lactate (LAC-HYDRIN) 12 % cream Apply to affected area as needed. Apply on thick skin gabapentin (NEURONTIN) 300 mg capsule Take 300 mg by mouth daily at bedtime. atorvastatin (LIPITOR) 40 mg tablet Take 1 tablet by mouth once daily. amoxicillin (POLYMOX, AMOXIL) 500 mg capsule Take four capsules one hour before dental procedure. (Patient not taking: Reported on 12/19/2023) CPAP AutoPAP [id number]. Mask per preference, tubing, filters, humidity. Lifetime Supplies. Dx: G47.33. Fax 30 day compliance report to [phone]. CPAP Please provide mask fitting. Pt with subjective and some degree objective leaks. Prefers nasaltype mask. Thank you. DME = [employer] acetaminophen [...] Social History Tobacco Use Smoking status: Never Passive exposure: Past Smokeless tobacco: Never Vaping Use Vaping status: Never Used Substance Use Topics Alcohol use: No Drug use: No REVIEW OF SYSTEMS All other reviewed and negative other than HPI. OBJECTIVE: BP 118/82 Pulse 65 Resp 18 Ht 176.6 cm (5' 9.53) Wt 133.7 kg (294 lb 12.8 oz) SpO2 95% BMI 42.88 kg/m . Vital signs reviewed by this provider. APPEARANCE Well appearing, alert, in no acute distress, well-hydrated, well nourished. EYES conjunctiva and sclera normal. HEART RRR with normal S1 and S2, no murmurs, no gallops, no JVD appreciated LUNG clear to auscultation, No wheezes, rhonchi or rales EXTREMITIES Trace edema to BLE SKIN Skin color, texture, turgor normal, no suspicious rashes or lesions to exposed skin Latest Ref Rng 01/19/2024 WBC 3.70 - 11.00 k/uL 10.31 RBC 4.20 - 6.00 m/uL 4.57 Hemoglobin 13.0 - 17.0 g/dL 14.5 Hematocrit 39.0 - 51.0 % 44.2 MCV 80.0 - 100.0 fL 96.7 MCH 26.0 - 34.0 pg 31.7 MCHC 30.5 - 36.0 g/dL 32.8 RDW-CV 11.5 - 15.0 % 13.6 Platelet Count 150 - 400 k/uL 255 MPV 9.0 - 12.7 fL 10.2 Neut% % 65.8 Abs Neut (ANC) 1.45 - 7.50 k/uL 6.78 Lymph% % 21.6 Abs Lymph 1.00 - 4.00 k/uL 2.23 [place]% % 10.0 Abs [place] <0.87 k/uL 1.03 (H) Eosin% % 1.9 Abs Eosin <0.46 k/uL 0.20 Baso% % 0.4 Abs Baso <0.11 k/uL 0.04 Immature Gran % % 0.3 IMMATURE GRANS (ABS) <0.10 k/uL 0.03 NRBC /100 WBC 0.0 Absolute nRBC <0.01 k/uL <0.01 DTYPE Auto Latest Ref Rng 10/27/2023 Glucose 74 - 99 mg/dL 103 (H) BUN 9 - 24 mg/dL 25 (H) Creatinine 0.73 - 1.22 mg/dL 1.32 (H) Sodium 136 - 144 mmol/L 140 Potassium 3.7 - 5.1 mmol/L 4.4 Chloride 98 - 107 mmol/L 107 CO2 22 - 30 mmol/L 20 (L) Anion Gap 8 - 15 mmol/L 13 Calcium 8.5 - 10.2 mg/dL 9.0 eGFR >=60 mL/min/1.73m 55 (L) Latest Ref Rng 10/23/2023 TSH 0.270 - 4.200 mIU/L 4.860 (H) Latest Ref Rng 11/02/2022 Cholesterol, Total <200 mg/dL 145 Triglyceride <150 mg/dL 221 (H) HDL Cholesterol >39 mg/dL 31 (L) Non HDL Cholesterol <130 mg/dL 114 Fasting Time hrs 13 VLDL Cholesterol <30 mg/dL 44 (H) TC:HDL Ratio <5.10 4.68 LDL Cholesterol <100 mg/dL 70 LDL:HDL Ratio <2.54 2.26 Legend: (H) High (L) Low ASSESSMENT/PLAN: 1. Essential hypertension, benign - ICD9: 401.1, ICD10: I10 (primary diagnosis) - Controlled - Continue current medications - Recommend home blood pressure monitoring, to bring results to next visit - Encouraged sodium restriction, DASH or Mediterranean diet - Recommend regular aerobic exercise - Discussed need for and benefit of weight loss. BMI 42.88 kg/(m^2) - Follow up in 6 months for hypertension visit - COMPREHENSIVE METABOLIC PANEL 2. Pulmonary HTN (HCC) - ICD9: 416.8, ICD10: I27.20 - stable - follow-up with pulmonology as recommended 3. MARTIN (obstructive sleep apnea) - ICD9: 327.23, ICD10: G47.33 - continue nightly use 4. Prediabetes - ICD9: 790.29, ICD10: R73.03 - recommend low carbohydrate diet and aim for at least 150 minutes of exercise per week - A1c 5. Hyperlipidemia LDL goal <100 - ICD9: 272.4, ICD10: E78.5 - Control undetermined, due for labs - Continue current medications - Counseled on healthy diet and regular exercise - Discussed need for and benefit of weight loss. BMI 42.88 kg/(m^2) - Follow up in 6 months, sooner should any other issues arise. - LIPID PANEL, FASTING - COMPREHENSIVE METABOLIC PANEL 6. Obesity, Class III, BMI 40-49.9 (morbid obesity) [...] track your calories and exercise as well. 7. Acquired hypothyroidism - ICD9: 244.9, ICD10: E03.9 - Instructed patient on importance of taking on an empty stomach either first thing in the morning or at bedtime. - check TSH today - continue current dose of Synthroid 0.125 mg - Follow up in 6 months - THYROID STIMULATING HORMONE 8. Stage 3b chronic kidney disease (HCC) - ICD9: 585.3, ICD10: N18.32 - eGFR: 55 Stable - Counseled on avoiding NSAIDs, adequate hydration - Counseled on low sodium diet - ACEi/ARB prescribed: Yes - COMPREHENSIVE METABOLIC PANEL - follow-up in 6 months sooner if needed 9. History of pulmonary embolus (PE) - ICD9: V12.55, ICD10: Z86.711 - stable -follow-up with pulmonology as recommended Marilia Orozco APRN.SUPERVISOR [employer] Prescription instructions reviewed with patient as applicable. Patient advised if symptoms do not improve or if symptoms worsen sooner, to contact their primary care physician. Potential red flag symptoms discussed with the patient. Reviewed appropriate action plan to take if red flag symptoms occur. Patient agreeable to treatment plan. Medical Decision Making: Problems: Moderate: 2+ stable chronic illnesses Data: Unique test(s) ordered: 3+ Risk: Moderate: Moderate risk from testing/treatment Medical Decision Making Level: 4 - Moderate documented in this encounterC[facility]04-[facility]-2025 NoteHNO ID: [id number] Author: MARILIA OROZCO APRN.RUBÉN Service: ? Author Type: Nurse Practitioner Type: Progress Notes Filed: 08/13/2024 12:17 Note Text: 08/12/2024 Patient presents with: Yearly Exam SUBJECTIVE: This is a 78 year old that is here today for Above Complaints. MARTIN: wears CPAP nightly HTN: Patient is compliant with meds Yes Monitors bp at home: No. Denies side effects: No. Chest pain: No. Dyspnea: No. Edema: Yes. Palpitations: No. Syncope: No. Headache: No. Dizziness: No. Prediabetes: does not routinely follow low carbohydrate diet. Denies visual changes, polyuria or polydipsia HYPOTHYROIDISM: taking synthroid as prescribed without side effects HYPERLIPIDEMIA: Patient is taking medications: Yes. Patient is watching diet: No. Patient denies myalgias: Yes. Patient denies gi upset: Yes 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 Recent ERCP on 07/04/2024 for biliary sphincterotomy and removal of one stent from biliary tree. Will be going in the 07 of October for a biopsy since they found something precancerous on his EGD. He is unsure what area they are doing the biopsy on Hx of saddle PE and pulmonary HTN: follows with pulmonology with last office visit on 01/18/2024. No medication changes made at that time. Taking Eliquis as prescribed without side effects. Next office visit scheduled for Last Monday had left sided back ablation by Dr. Eduardo. Pain maybe a little better. Has follow-up in Monday PAST MEDICAL HISTORY Diagnosis Date Angina at [...] of skin of nose Dr. Chowdary in [place] Stage 3a chronic kidney disease (HCC) Venous insufficiency ALLERGIES Norvasc [Amlodipine Besylate], Venom-Wasp, and Zithromax [Azithromycin] MEDICATIONS Current Outpatient Medications Medication Sig metoprolol succinate ER (TOPROL XL) 50 mg 24 hr tablet Take 1 tablet by mouth once daily. lisinopril (ZESTRIL) 40 mg tablet Take 1 tablet by mouth once daily. apixaban (ELIQUIS) 5 mg tab(s) Take 1 tablet by mouth two times a day. levothyroxine (SYNTHROID) 125 mcg tablet TAKE 1 TABLET BY MOUTH EVERY DAY ON AN EMPTY STOMACH FOR THYROID hydroCHLOROthiazide 25 mg tablet Take 1 tablet by mouth once daily. cefdinir (OMNICEF) 300 mg capsule Take 300 mg by mouth two times a day. tiZANidine (ZANAFLEX) 2 mg tablet Take 1 tablet by mouth every 6 hours as needed. ammonium lactate (LAC-HYDRIN) 12 % cream Apply to affected area as needed. Apply on thick skin gabapentin (NEURONTIN) 300 mg capsule Take 300 mg by mouth daily at bedtime. atorvastatin (LIPITOR) 40 mg tablet Take 1 tablet by mouth once daily. amoxicillin (POLYMOX, AMOXIL) 500 mg capsule Take four capsules one hour before dental procedure. (Patient not taking: Reported on 12/19/2023) CPAP AutoPAP [id number]. Mask per preference, tubing, filters, humidity. Lifetime Supplies. Dx: G47.33. Fax 30 day compliance report to [phone]. CPAP Please provide mask fitting. Pt with [...] Social History Tobacco Use Smoking status: Never Passive exposure: Past Smokeless tobacco: Never Vaping Use Vaping status: Never Used Substance Use Topics Alcohol use: No Drug use: No REVIEW OF SYSTEMS All other reviewed and negative other than HPI. OBJECTIVE: BP 118/82 Pulse 65 Resp 18 Ht 176.6 cm (5' 9.53) Wt 133.7 kg (294 lb 12.8 oz) SpO2 95% BMI 42.88 kg/m? . Vital signs reviewed by this provider. APPEARANCE Well appearing, alert, in no acute distress, well-hydrated, well nourished. EYES conjunctiva and sclera normal. HEART RRR with normal S1 and S2, no murmurs, no gallops, no JVD appreciated LUNG clear to auscultation, No wheezes, rhonchi or r (more content not included)...[facility]04-14-2025 Telephone encounter Note* Telephone Encounter - Carli Bowen RN - 08/12/2024 11:33 AM EDT The patient has been identified by name and date of : Yes Caregiver verified no other encounters exist for this prescription request: Yes Caregiver confirmed with patient/requestor that no other refills are due, in the near future, with this provider at this time: Yes The last office visit in the department: 04/01/2024 Does the patient have a future office visit with this provider/department: Yes 08/13/2024 Requested Prescriptions Pending Prescriptions Disp Refills metoprolol succinate ER (TOPROL XL) 50 mg 24 hr tablet 90 tablet 1 Sig: Take 1 tablet by mouth once daily. Carli Bowen RN August 12, 2024 11:34 AM [facility]04-14-2025 Miscellaneous Notes* Telephone Encounter - Carli Bowen RN - 08/12/2024 11:33 AM EDT The patient has been identified by name and date of : Yes Caregiver verified no other encounters exist for this prescription request: Yes Caregiver confirmed with patient/requestor that no other refills are due, in the near future, with this provider at this time: Yes The last office visit in the department: 04/01/2024 Does the patient have a future office visit with this provider/department: Yes 08/13/2024 Requested Prescriptions Pending Prescriptions Disp Refills metoprolol succinate ER (TOPROL XL) 50 mg 24 hr tablet 90 tablet 1 Sig: Take 1 tablet by mouth once daily. Carli Bowen RN August 12, 2024 11:34 AM documented in this encounterC[facility]04-[facility]-2025 NoteHNO ID: [id number] Author: MORELIA MUNGUIA MA Service: ? Author Type: International Relations Teacher Type: Progress Notes Filed: 08/07/2024 14:12 Note Text: POPULATION HEALTH NAVIGATION OUTREACH Action/FYI Patient returned call and patient declined scheduling. Reason for Outreach Returned Call/MyChart Patient Contacted: Spoke to patient/parent/or legal guardian Patient identified by name and date of : Yes Returned call/MyChart actions taken: Patient declined: Doesn't feel it's necessary Navigation Signature: Morelia Munguia MA August 07, 2024 2:11 [facility]04-09-2025 History of Present illness Narrative* Morelia Munguia MA - 08/07/2024 2:11 PM EDT POPULATION HEALTH NAVIGATION OUTREACH Action/FYI Patient returned call and patient declined scheduling. Reason for Outreach Returned Call/MyChart Patient Contacted: Spoke to patient/parent/or legal guardian Patient identified by name and date of : Yes Returned call/MyChart actions taken: Patient declined: Doesn't feel it's necessary Navigation Signature: Morelia Munguia MA August 07, 2024 2:11 PM * Morelia Munguia MA - 08/07/2024 12:59 PM EDT POPULATION HEALTH NAVIGATION OUTREACH Action/FYI Contacted patient to schedule HCC care gaps and health maintenance. 1st attempt: Left message with my direct number 2nd attempt: My Chart message sent Topic Due (Y or N) Comments Annual Wellness Exam Yes PCP Follow up Yes Colorectal Cancer Screening No A1C No HTN/Controlling BP Yes HCC Yes Updated appointment notes No Reason for Outreach Care Gap/HCC or Scheduling Wellness Visits Care Gaps due: Annual Wellness Exam Follow Up Appointment Controlling Blood Pressure Patient Contacted: Unable or unnecessary to reach patient: Left message [employer] message sent HCC related Navigation Signature: Morelia Munguia MA August 07, 2024 12:59 PM documented in this encounterC[facility]04-[facility]-2025 NoteHNO ID: [id number] Author: MORELIA MUNGUIA MA Service: ? Author Type: International Relations Teacher Type: Progress Notes Filed: 08/07/2024 13:00 Note Text: POPULATION HEALTH NAVIGATION OUTREACH Action/FYI Contacted patient to schedule HCC care gaps and health maintenance. 1st attempt: Left message with my direct number 2nd attempt: My Chart message sent Topic Due (Y or N) Comments Annual Wellness Exam Yes PCP Follow up Yes Colorectal Cancer Screening No A1C No HTN/Controlling BP Yes HCC Yes Updated appointment notes No Reason for Outreach Care Gap/HCC or Scheduling Wellness Visits Care Gaps due: Annual Wellness Exam Follow Up Appointment Controlling Blood Pressure Patient Contacted: Unable or unnecessary to reach patient: Left message MyChart message sent HCC related Navigation Signature: Morelia Munguia MA August 07, 2024 12:59 [facility]04-09-2025 NotePatient Outreach (NETNAV) FRAN PAREKH ([id number]) 1945 M Date Time Provider Department 08/07/24 MORELIA MUNGUIA During your visit today, we recorded the following information about you: Morelia Munguia MA 08/07/2024 1:00 PM Signed POPULATION HEALTH NAVIGATION OUTREACH Action/FYI Contacted patient to schedule HCC care gaps and health maintenance. 1st attempt: Left message with my direct number 2nd attempt: My Chart message sent Topic Due (Y or N) Comments Annual Wellness Exam Yes PCP Follow up Yes Colorectal Cancer Screening No A1C No HTN/Controlling BP Yes HCC Yes Updated appointment notes No Reason for Outreach Care Gap/HCC or Scheduling Wellness Visits Care Gaps due: Annual Wellness Exam Follow Up Appointment Controlling Blood Pressure Patient Contacted: Unable or unnecessary to reach patient: Left message MyChart message sent HCC related Navigation Signature: Morelia Munguia MA August 07, 2024 12:59 PM Morelia Munguia MA 08/07/2024 2:12 PM Signed POPULATION HEALTH NAVIGATION OUTREACH Action/FYI Patient returned call and patient declined scheduling. Reason for Outreach Returned Call/MyChart Patient Contacted: Spoke to patient/parent/or legal guardian Patient identified by name and date of : Yes Returned call/MyChart actions taken: Patient declined: Doesn't feel it's necessary Navigation Signature: Morelia Munguia MA August 07, 2024 2:11 PM Allergies As of Date: 08/07/2024 Noted Allergy Reaction NORVASC (AMLODIPINE BESYLATE) 09/14/2016 7 - Swelling Comments: pedal edema VENOM-WASP 01/14/2005 7 - Swelling ZITHROMAX (AZITHROMYCIN) 01/14/2005 9 - Itching Date Reviewed: 04/01/2024 Reviewed by: Eunice Bruce LPN - Fully Assessed Reason for Visit: Population Health Navigation Outreach [2710] Cmt: [place]/Workbench/ACO Prescriptions as of 08/07/2024 - lisinopril (ZESTRIL) 40 mg tablet Take 1 tablet by mouth once daily. - apixaban (ELIQUIS) 5 mg tab(s) Take 1 tablet by mouth two times a day. - levothyroxine (SYNTHROID) 125 mcg tablet TAKE 1 TABLET BY MOUTH EVERY DAY ON AN EMPTY STOMACH FOR THYROID - hydroCHLOROthiazide 25 mg tablet Take 1 tablet by mouth once daily. - cefdinir (OMNICEF) 300 mg capsule Take 300 mg by mouth two times a day. - tiZANidine (ZANAFLEX) 2 mg tablet Take 1 tablet by mouth every 6 hours as needed. - metoprolol succinate ER (TOPROL XL) 50 mg 24 hr tablet Take 1 tablet by mouth once daily. - ammonium lactate (LAC-HYDRIN) 12 % cream Apply to affected area as needed. Apply on thick skin - gabapentin (NEURONTIN) 300 mg capsule Take 300 mg by mouth daily at bedtime. - atorvastatin (LIPITOR) 40 mg tablet Take 1 tablet by mouth once daily. - amoxicillin (POLYMOX, AMOXIL) 500 mg capsule Take four capsules one hour before dental procedure. - CPAP AutoPAP [id number]. Mask per preference, tubing, filters, humidity. Lifetime Supplies. Dx: G47.33. Fax 30 day compliance report to [phone]. - CPAP Please provide mask fitting. Pt [...] tablet daily. Problem List As Of Date 08/07/2024 Noted Resolved Primary hypertension [I10] 03/11/2005 Hypertrophy of prostate with urinary obstructio*06/01/2006 BLADDER NECK OBSTRUCTION [N32.0] 06/01/2006 Plantar fascial fibromatosis [M72.2] 11/02/2006 05/09/2014 Ingrowing nail [L60.0] 11/26/2007 05/09/2014 Hypothyroidism [E03.9] 03/25/2009 Open fracture of distal phalangeal tuft [[id number]*08/31/2011 05/09/2014 Internal derangement of right knee [M23.91] [...] ASHD (arteriosclerotic heart disease) [I25.10] 09/14/2016 Hyperlipidemia [E78.5] 09/14/2016 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] 06/08/2018 Right buttock pain [M79.18] 02/04/2019 Ankle edema, bilateral [M25.471, M25.472] 02/04/2019 Class 2 obesity due to excess calories with bod*05/13/2019 Pre-operative examination [Z01.818] 05/13/2019 Primary osteoarthritis of right hip [M16.11] 05/13/2019 Osteoarthritis of right hip [M16.11] 06/03/2019 06/06/2019 Carpal tunnel syndrome, bilateral [G56.03] 11/20/2019 Stage 3a chronic kidney disease [N18 (more content not included)...[facility]03-28-2025 Telephone encounter Note* Telephone Encounter - Bob Milligan MD - 07/26/2024 11:46 PM EDT The following approved medication requests have been transmitted electronically. Requested Prescriptions Signed Prescriptions Disp Refills lisinopril (ZESTRIL) 40 mg tablet 90 tablet 1 Sig: Take 1 tablet by mouth once daily. Authorizing Provider: BOB MILLIGAN MD [facility]03-28-2025 Miscellaneous Notes* Telephone Encounter - Bob Milligan MD - 07/26/2024 11:46 PM EDT The following approved medication requests have been transmitted electronically. Requested Prescriptions Signed Prescriptions Disp Refills lisinopril (ZESTRIL) 40 mg tablet 90 tablet 1 Sig: Take 1 tablet by mouth once daily. Authorizing Provider: BOB MILLIGAN MD * Telephone Encounter - Malachi Castillo RN - 07/26/2024 4:43 PM EDT The patient has been identified by name and date of : Yes Caregiver verified no other encounters exist for this prescription request: Yes Caregiver confirmed with patient/requestor that no other refills are due, in the near future, with this provider at this time: Yes The last office visit in the department: 04/01/2024 Does the patient have a future office visit with this provider/department: Yes 08/02/2024 Requested Prescriptions Pending Prescriptions Disp Refills lisinopril (ZESTRIL) 40 mg tablet 90 tablet 1 Sig: Take 1 tablet by mouth once daily. Malachi Castillo RN July 26, 2024 4:43 PM documented in this encounterC[facility]03-[facility] Telephone encounter Note * Telephone Encounter - Malachi Castillo RN - 07/26/2024 4:43 PM EDT The patient has been identified by name and date of : Yes Caregiver verified no other encounters exist for this prescription request: Yes Caregiver confirmed with patient/requestor that no other refills are due, in the near future, with this provider at this time: Yes The last office visit in the department: 04/01/2024 Does the patient have a future office visit with this provider/department: Yes 08/02/2024 Requested Prescriptions Pending Prescriptions Disp Refills lisinopril (ZESTRIL) 40 mg tablet 90 tablet 1 Sig: Take 1 tablet by mouth once daily. Malachi Castillo RN July 26, 2024 4:43 PM [facility] General03-06-2025 Consult note Author Abundio Merrill [facility] Note Date/Time July 04, 2024 9:43 am [facility] Medical Records Department [address] [place] [address] Pre-Anesthesia Evaluation 07/04/24920 MR#: [id number] Acct: [id number] Name: FRAN PAREKH Rep #:[id number] : 1945 78 From: Abundio Merrill MD PCP: Dr. Salvador Diaz MD Status :REG SDC Y Race: C Location: [place] [address] ASA Classification* ASA Classification ASA Classification: 3 Assessment & Plan Anesthesia* Anesthesia Assessment Anesthesia Assessment: Discussed sedation and/or anesthesia options, risks, benefits, and alternatives with patient/parents/legal guardian/POA. Questions invited. The patient/parents/legal guardian/POA seems to understand and agrees to proceedwith anesthesia plan. Reviewed the physical assessment, medical history, allergy history and patient home medications list prior to surgery/procedure/anesthetic and documented any changes. Performed airway and anesthesia risk assessments. Anesthesia Type Anesthesia Type: MAC History Source History Obtained from:: Patient and Chart Anesthesia Focused Assessment* Temperature: 97.4 F Pulse Rate: 57 Blood Pressure: 136/78 Respiratory Rate: 12 Pulse Ox: 97 Oxygen Delivery Method: Room Air Airway Assessment Mouth opens: >3 cm Mallampati Score: III Teeth Condition: Caps/Crowns (Patient has a couple caps. They are tight.) Neck Range of motion (ROM): Limited ROM Focused Labs Anesthesia Preop lab: CBC WBC 10.5 K/mm3 (4.4-11.0) 03/28/24 06:15 03/28/24 RBC 4.20 M/mm3 (4.6-6.2) L 03/28/24 06:15 03/28/24 Hgb 13.3 g/dL (13.0-16.5) 03/28/24 06:15 03/28/24 Hct 39.3 % (40-54) L 03/28/24 06:15 03/28/24 Plt Count 210 K/mm3 (150-450) 03/28/24 06:15 03/28/24 CHEMISTRY Potassium 4.1 mmol/L (3.5-5.1) 03/28/24 06:15 03/28/24 Sodium 138 mmol/L (136-145) 03/28/24 06:15 03/28/24 Magnesium 2.6 mg/dL (1.6-2.6) 03/27/24 06:35 03/27/24 BUN 24 mg/dL (7-18) H 03/28/24 06:15 03/28/24 Creatinine 1.47 mg/dL (0.70-1.30) H 03/28/24 06:15 Glucose 142 mg/dL (74-106) H 03/28/24 06:15 03/28/24 TSH 0.51 uIU/mL (0.358-3.74) 09/04/16 01:48 COAG PT 14.4 SECONDS (11.7-14.9) 03/26/24 02:15 Pre-Assessment Diagnosis/Proposed Procedure Planned Operative Procedure(s): ERCP Anesthesia History 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 07/02/24 14:53 Any Problems With Anesthesia No 07/02/24 14:53 Cholinesterase deficiency No 07/02/24 14:53 You/Your Family Experience No 07/02/24 14:53 fever (hyperthermia) with Relationship Recent Exposure to Contagious No 07/04/24 08:49 Disease Does patient have nerve No 07/02/24 14:53 stimulator Patient instructed to have device shut off --Does patient have Pacemaker No 07/04/24 08:49 or ICD? When Was Last Pacemaker Check QUESTION #4 FULL TEXT: You/Your Family Experience fever (hyperthermia) with Anesthesia Last Oral Intake Last Oral intake: Last Oral Intake NPO since 19:00 07/04/24 08:49 Meds taken in AM with sips of No 07/04/24 08:49 water? 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 Female No 07/02/24 14:53 HX of Motion Sickness No 07/02/24 14:53 HX of N/V After Surgery No 07/02/24 14:53 Non-Smoker Yes 07/02/24 14:53 Duration of Surgery greater No 07/02/24 14:53 than 60 minutes Number of Risk Factors 1 07/02/24 14:53 PONV Score Low Risk 07/02/24 14:53 Height & Weight Height & Weight: Anesthesia: Height & Weight Height 5 ft 10 in 07/04/24 08:49 Weight: 133 kg 07/04/24 08:49 Body Mass Index (BMI) 42.0 07/04/24 08:49 Respiratory Assessment Respiratory Assessment - rv repair technician: Respiratory Tract Infection Hx - rv repair technician Hx Respiratory Tract Infection No 07/02/24 14:53 STOP Sleep Apnea STOP Sleep Apnea - rv repair technician: STOP Sleep Apnea - rv repair technician Hx Hypertension Yes: CONTROLLED WITH MEDS 07/02/24 14:53 Hx Sleep Apnea Yes 07/02/24 14:53 CPAP Yes 07/02/24 14:53 BIPAP No 07/02/24 14:53 Do you snore loudly (louder than talking or can be heard Do you often feel tired/ fatigued/ sleepy during daytime? Has anyone observed you stop breathing during sleep? STOP Results Positive 07/02/24 14:53 QUESTION #5 FULL TEXT : Do you snore loudly (louder than talking or can be heard through closed doors)? 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 Specify any problems Hx of Preganancy in last 3 N/A 07/02/24 14:53 Months Nurse Filling Out Transfusion [id number] 07/02/24 14:53 & Questions: Date: 07/02/24 07/02/24 14:53 Time: 14:59 07/02/24 14:53 Patient unable to answer at this time (ie. confused, unrespo /Reproduction History /Reproductive History - rv repair technician: /Reproductive Hx- rv repair technician Hx Now Gestational Age (in weeks): EDC: Hx Hx Para Hx Section SAB PFSH Medical History (Updated 07/04/24 @ 09:[address] 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 Elevated liver enzymes Pancreatic mass High cholesterol Hx of gastroesophageal reflux (GERD) Hypothyroidism Hypertension Home Medications ?Medication ?Instructions ?Recorded ?Last Taken ?Type lisinopril 40 mg tablet 40 mg PO DAILY blood pressur e 01/31/13 07/03/24 History atorvastatin 40 mg tablet 40 mg PO QHS cholesterol #90 09/05/16 07/03/24 Rx TABLETS gabapentin 300 mg capsule 300 mg PO QHS nerve pain 07/03/24 History metoprolol succinate 50 mg 50 mg PO DAILY blood pressu re 10/22/23 07/03/24 History tablet,extended release 24 hr apixaban 5 mg tablet (Eliquis) 5 mg PO BID blood thinn er 03/26/24 07/02/24 History hydrochlorothiazide 25 mg tablet 25 mg PO DAILY reduce fluid 03/26/24 07/03/24 History levothyroxine 125 mcg tablet 125 mcg PO DAILY disorder of 03/26/24 07/03/24 History thyroid gland Allergy/AdvReac Type Severity Reaction Status Date / Time azithromycin (From Zithromax) Allergy Itching Verified 07/04/24 08:42 bee venom protein (honey bee) AdvReac Swelling Verified 07/04/24 08:42 venom-wasp (wasps) AdvReac Swelling Verified 07/04/24 08:42 Surgical History (Updated 07/04/24 @ 09:[address] Abundio Merrill MD) History of total right hip arthroplasty S/P carpal tunnel release History of tonsillectomy History of ERCP Social History Smoking Status: Never smoker Review of Systems (Anesthesia) ROS Narrative System reviewed and no additional complaints, except as documented. 07/04/24 0943 <Electronically signed by Abundio chase MD> Date _ Abundio Merrill MD Cosigner Signature: Date CC: ~ Signed [facility] Work Phone: 1(983) 437-855003-06-2025 Radiology Diagnostic study note [facility] [address] [place] [id number] ERCP Biliary/Pancreas MR#: [id number] Acct: [id number] Name: FRAN PAREKH Rep #: [id number] : 1945 78 From: Jodie Jauregui MD PCP: Dr. Salvador Diaz MD Status: [facility] Study:ERCP Biliary/Pancreas Date of Exam: 07/04/24 Exam# [id number] Ordering Dr: Tarah Sher DO PROCEDURE: ERCP BILIARY/PANCREAS REASON FOR EXAM: Pain. Recheck. TECHNIQUE: ERCP was performed by Dr. Alex Sher. Routine image documentation was performed during the procedure. COMPARISON: ERCP dated 03/27/2024. MRCP dated 03/27/2024. FINDINGS: An endoscope is visualized projecting over the right hemiabdomen. Contrast opacifies the common bile duct and segments of the common hepatic and intrahepatic bile ducts. No intraluminal filling defects are noted. No strictures or obstructing lesions. Some contrast opacifies the cystic duct. Contrast is seen in the duodenum. No contrast was noted in the pancreatic duct. RAD/ERCP Biliary/Pancreas IMPRESSION: Unremarkable endoscopic retrograde cholangiopancreatography. Reading Location: [place] [address] CC: Dr. Salvador Diaz MD; Alex Sher DO ~ Voltage Regulator Assembler: Signed [facility]03-06-2025 Procedure note [facility] Medical Records Department [address] [place] [address] ERCP Report MR#: [id number] Acct: [id number] Name: FRAN PAREKH Rep #:[id number] : 1945 78 From: Alex Sher DO PCP: Dr. Salvador Diaz MD Status :REG [facility] Patient Name: Fran Parekh Procedure Date: 07/04/2024 10:18 AM Date of : 1945 Age: 78 Procedure: ERCP Indications: Biliary stent removal Providers: Alex Sher DO Medicines: Monitored Anesthesia Care Patient Profile: This is a 78 year old male. Refer to note in patient chart for documentation of history and physical. Patient has symptoms of acute right upper quadrant abdominal pain. Complications: No immediate complications. Procedure: Pre-Anesthesia Assessment: - Prior to the procedure, a History and Physical was performed, and patient medications and allergies were reviewed. The patient is competent. The risks and benefits of the procedure and the sedation options and risks were discussed with the patient. All questions were answered and informed consent was obtained. Patient identification and proposed procedure were verified by the physician in the pre-procedure area. Mental Status Examination: alert and oriented. Airway Examination: normal oropharyngeal airway and neck mobility. Respiratory Examination: clear to auscultation. CV Examination: normal. ASA Grade Assessment: II - A patient with mild systemic disease. After reviewing the risks and benefits, the patient was deemed in satisfactory condition to undergo the procedure. The anesthesia plan was to use monitored anesthesia care (MAC). Immediately prior to administration of medications, the patient was re-assessed for adequacy to receive sedatives. The heart rate, respiratory rate, oxygen saturations, blood pressure, adequacy of pulmonary ventilation, and response to care were monitored throughout the procedure. The physical status of the patient was re-assessed after the procedure. After obtaining informed consent, the scope was passed under direct vision. Throughout the procedure, the patient's blood pressure, pulse, and oxygen saturations were monitored continuously. The Duodenoscope was introduced through the mouth, and advanced to the duodenum and used to inject contrast into the bile duct. The ERCP was accomplished without difficulty. The patient tolerated the procedure well. Scope In: 10:32:14 AM Scope Out: 10:46:51 AM Total Procedure Duration Time 0 hours 14 minutes 37 seconds Findings: A biliary stent was visible on the machine bunch maker film. The esophagus was successfully intubated under direct vision. The scope was advanced to a normal major papilla in the descending duodenum without detailed examination of the pharynx, larynx and associated structures, and upper GI tract. The upper GI tract was grossly normal. A long 0.025 inch Jagwire was passed into the biliary tree. The short-nosed traction sphincterotome was passed over the guidewire and the bile duct was then deeply cannulated. Contrast was injected. I personally interpreted the bile duct images. Ductal flow of contrast was adequate. Image quality was adequate. Contrast extended to the biliary pancreatic junction. Contrast extended to the main bile duct. Contrast extended to the cystic duct. Contrast extended to the gallbladder. Contrast extended to the bifurcation. Contrast extended to the hepatic ducts. Contrast extended to the entire biliary tree. A 5 mm biliary sphincterotomy was made with a braided traction (standard) sphincterotome using ERBE electrocautery. There was no post-sphincterotomy bleeding. The biliary tree was swept with a 12 mm balloon starting at the upper third of the main bile duct, middle third of the main bile duct, lower third of the main duct, bifurcation, left intrahepatic duct(s), left main hepatic duct, right intrahepatic duct(s) and right main hepatic duct. All stones were removed. One stent was removed from the biliary tree using a snare and sent for cytology. The stent was found to be partially occluded via the water column test. A standard esophagogastroduodenoscopy scope was used for the examination of the upper gastrointestinal tract. The scope was passed under direct vision through the upper GI tract. Localized mild mucosal changes characterized by granularity were found in the area of the papilla. Biopsies were taken in the ampulla through the esophagogastroduodenoscope with the cold forceps for histology. Impression: - Mucosal changes in the duodenum. - Biopsies were taken with a cold forceps for histology in the ampulla. - Choledocholithiasis was found. Complete removal was accomplished by biliary sphincterotomy and balloon extraction. - A biliary sphincterotomy was performed. - The biliary tree was swept. - One stent was removed from the biliary tree. Procedure Code(s): --- Professional --- 88335, Endoscopic retrograde cholangiopancreatography (ERCP); with removal of foreign body(s) or stent(s) from biliary/pancreatic duct(s) 82119, Endoscopic retrograde cholangiopancreatography (ERCP); with removal of calculi/debris from biliary/pancreatic duct(s) 48021, Endoscopic retrograde cholangiopancreatography (ERCP); with sphincterotomy/papillotomy 28318, Esophagogastroduodenoscopy, flexible, transoral; with biopsy, single or multiple 43314, 26, Endoscopic catheterization of the biliary ductal system, radiological supervision and interpretation CPT copyright 2021 [employer]. All rights reserved. The codes documented in this report are preliminary and upon outpatient coder review may be revised to meet current compliance requirements. Alex Sher DO 07/04/2024 11:05:54 AM This report has been signed electronically. Number of Addenda: 0 Note Initiated On: 07/04/2024 10:18 AM 07/04/24 1105 Date _ Alex Sher DO Cosigner Signature: Date (if indicated) CC: Dr. Salvador Diaz MD; Alex Sher DO ~ Date Dictated: 07/04/24 1018 Date Transcribed: Voltage Regulator Assembler: LUIS Signed [facility]03-06-2025 Procedure note [facility] Medical Records Department [address] [place] [address] Operative Report - CC Letter MR#: [id number] Acct: [id number] Name: FRAN PAREKH Rep #:[id number] : 1945 78 From: Alex Sher DO PCP: Dr. Salvador Diaz MD Status :REG [facility] 07/04/2024 Salvador Diaz Re : ERCP procedure for Fran Parekh Dear Carin This procedure was performed on June. My impressions and recommendations are as follows: Impressions : - Mucosal changes in the duodenum. - Biopsies were taken with a cold forceps for histology in the ampulla. - Choledocholithiasis was found. Complete removal was accomplished by biliary sphincterotomy and balloon extraction. - A biliary sphincterotomy was performed. - The biliary tree was swept. - One stent was removed from the biliary tree. Recommendations : My findings are described in the full procedure note, which is enclosed. If I can be of further assistance, please feel free to contact me at . Sincerely, Alex Sher DO 07/04/2024 11:05:54 AM This report has been signed electronically. 07/04/24 1105 Date _ Alex Kang Signature: Date (if indicated) CC: Dr. Salvador Diaz MD; Alex Sher DO ~ Date Dictated: 07/04/24 1018 Date Transcribed: Voltage Regulator Assembler: RF Signed [facility]03-06-2025 Consult note [facility] Medical Records Department [address] [place] [address] Anesthesia Postop Eval I 07/04/24 1059 MR#: [id number] Acct: [id number] Name: FRAN PAREKH Rep #:[id number] : 1945 78 From: Tevin Vizcaino PCP: Dr. Salvador Diaz MD Status :REG SDC Y Race: C Location: [place] [address] Anesthesia: Postop Eval I Current Vital Signs Temperature: 97.9 F Pulse Rate: 72 Blood Pressure: 140/84 Respiratory Rate: 16 Pulse Ox: 95 Oxygen Delivery Method: Room Air Assessment Airway patent: Yes Spontaneous unlabored respirations: Yes Mental status: Awake and Calm nausea: No Vomiting: No Anesthesia Complication: No Fluid Hydration Crystalloid volume administer (ml): 60 Total IV fluid infused: 60 Progress Note Anesthesia document: Postop Eval 1 completed: Yes 07/04/24 1100 > Date _ Tevin Silvachantale Peñalozaigner Signature: Date CC: ~ Signed [facility]03-06-2025 Evaluation note* Diagnosis Onset Date Resolution Status Admit Date 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 8:24am Choledocholithiasis acute July 04, 2024 8:24am Ampulla of Vater mass acute Jun 8:21am Choledocholithiasis acute July 23, 2024 8:21am Pancreatic cyst acute June 8:21am Pancreatitis acute July 23, 2024 8:21am [facility] Work Phone: 1([phone]) 749-920103-06-2025 Evaluation note* Diagnosis Onset Date Resolution Status Admit Date 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 8:24am Choledocholithiasis acute July 04, 2024 8:24am Ampulla of Vater mass acute Jun 8:21am Choledocholithiasis acute July 23, 2024 8:21am Pancreatic cyst acute June 8:21am Pancreatitis acute July 23, 2024 8:21am Balance disorder acute August 9:03am Lumbar scoliosis acute August 9:03am Spinal stenosis of lumbar re gion with neurogenic claudication acute September 17, 2024 9:03am Spondylolisthesis, lumbar region acu te September 17, 2024 9:03am Synovial cyst of lumbar facet joint acute September 17, 2024 9:03am Ampulla of Vater mass acute Jose Daniel e 2024 10:24am Biliary stricture acute September 10:24am [facility] Work Phone: 1(331) 101-384503-06-2025 History and physical note [facility] Medical Records Department [address] [address] History & Physical Exam 07/04/24 0957 MR#: [id number] Acct: [id number] Name: FRAN PAREKH Rep #:[id number] : 1945 78 From: [facility] Friend DO PCP: Dr. Salvador Diaz MD Status :[facility] Location: [place] [address] HPI - General General Date of Admission: 07/04/24 Date of Service: 07/04/24 Chief Complaint: Biliary stent removal HPI Narrative FRAN PAREKH, is a 78 M who presents for ERCP with stent removal. [facility] hospitalization 03.26.24 - 03.28.24 dizziness - consulted for pancreatitis abd/pelvis CT 03.26.24 Lobulated 6 cm pancreatic tail hypoattenuating, cystic appearing lesion previously measuring only up to 3 cm. Cystic neoplastic process is not excluded. Severe distal colonic diverticulosis without focus of diverticulitis. 3 cm exophytic anterior right interpolar renal lesion which does not measure simple fluid attenuation. Recommend nonemergent follow-up renal ultrasound to better characterize as solid neoplastic process is not 6excluded. Gall Bladder US 03.26.24 Fatty infiltration of the liver. MRCP 03.26.24 1. Normal gallbladder and biliary tree. 2. 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 ERCP 03.27.24 The entire main bile duct and left main hepatic duct were dilated, with a stone causing an obstruction. Choledocholithiasis was found. Complete removal was accomplished by biliary sphincterotomy and balloon extraction. A pancreatic sphincterotomy was performed. The ventral pancreatic duct was swept and debris was found. A biliary sphincterotomy was performed. Thebiliary tree was swept. One temporary stent was placed into the common bile duct. OV 04.16.24 pt reports that he is feeling well overall and denies GI symptoms ofconcern at this time. Pt states that he has not had any symptoms since hospitalization. Would like to know when his stent will be removed. [facility] Medical History Carpal tunnel syndrome on both sides Cancer Wears glasses Thyroid disease Shingles Inguinal hernia Cardiology follow-up encounter History of stress test Choledocholithiasis Current use of [facility] 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 Elevated liver enzymes Pancreatic mass High cholesterol Hx of gastroesophageal reflux (GERD) Hypothyroidism Hypertension Home Medications ?Medication ?Instructions ?Recorded ?Last Taken ?Type lisinopril 40 mg tablet 40 mg PO DAILY blood pressur e 01/31/13 07/03/24 History atorvastatin 40 mg tablet 40 mg PO QHS cholesterol #90 09/05/16 07/03/24 Rx TABLETS gabapentin 300 mg capsule 300 mg PO QHS nerve pain 07/03/24 History metoprolol succinate 50 mg 50 mg PO DAILY blood pressu re 10/22/23 07/03/24 History tablet,extended release 24 hr apixaban 5 mg tablet (Eliquis) 5 mg PO BID blood thinn er 03/26/24 07/02/24 History hydrochlorothiazide 25 mg tablet 25 mg PO DAILY reduce fluid 03/26/24 07/03/24 History levothyroxine 125 mcg tablet 125 mcg PO DAILY disorder of 03/26/24 07/03/24 History thyroid gland Allergy/AdvReac Type Severity Reaction Status Date / Time azithromycin (From Zithromax) Allergy Itching Verified 07/04/24 08:42 bee venom protein (honey bee) AdvReac Swelling Verified 07/04/24 08:42 venom-wasp (wasps) AdvReac Swelling Verified 07/04/24 08:42 Surgical History History of total right hip arthroplasty S/P carpal tunnel release History of tonsillectomy History of ERCP Social History Smoking Status: Never smoker ROS Constitutional Constitutional: Denies fatigue, fever(s), poor appetite, weight gain or weight loss Gastrointestinal Gastrointestinal: Denies belching, bloating, change in bowel habits, change in stool character, chewing difficulty, coffee ground emesis, constipation, cramping, diarrhea, dyspepsia, dysphagia, earlysatiety, excessive flatus, fecalincontinence, heartburn, hematemesis, hematochezia, hemorrhoids, loose stools, melena, nausea, odynophagia, rectal bleeding, tenesmus, vomiting or weight changes Vital Signs Vital Signs Vital Signs: 07/04/24 08:49 07/04/24 08:49 07/04/24 09:43 Temperature 97.4 F L 97.4 F L Temperature Source Temporal Pulse Rate 57 L 57 L Respiratory Rate 12 12 Respiratory Pattern Normal Blood Pressure 136/78 H 136/78 H Blood Pressure Mean 97 Blood Pressure Source Monitor Blood Pressure Position Semi-Fowlers Blood Pressure Location Left Arm Pulse Ox 97 97 Oxygen Delivery Method Room Air Room Air Weight Weight: 293 lb 3.437 oz Body Mass Index (BMI) 42.0 Physical Exam Const alert, oriented x3, no apparent distress and healthy appearing General Appearance: cooperative GI normal to inspection, nondistended, normoactive bowel sounds, soft to palpation,non-tender and non-distended Percussion: normal to percussion Rectal Exam: deferred Assessment & Plan Assessment/Plan (1) Choledocholithiasis: (2) Biliary stricture: PLAN: 78-year-old gentleman who presented to the emergency room with abdominal pain, jaundice and discovered to have elevated LFTs and biochemical and radiologic evidence of 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 He was also discovered to have multiple pancreatic cysts w ith the largest one being in the pancreatic tail at 4.2 cm. Differential diagnosis for this would be pseudocyst from previous episodes of acute pancreatitis, less likely serous cystoadenoma, IPMN andless likely mucinous cystoadenoma. He underwent ERCP with stone removal and temporary stent placement for biliary stricture. He will have repeat ERCP with stent removal. He will need repeat MRCP or MRI of the abdomen in approximately 6 to 12 months to look at the multiple cyst in the pancreas. 07/04/24 1001 Cosigner Signature (if applicable): CC: Dr. Salvador Diaz MD; Alex Friend, DO~ Signed [facility]03[facility]06[facility] Consult note [facility] Medical Records Department [address] [place] [address] Pre-Anesthesia Evaluation 07/04/24 0921 MR#: [id number] Acct: [id number] Name: FRAN PAREKH Rep #:[id number] : 1945 78 From: Abundio Merrill MD PCP: Dr. Salvador Diaz MD Status :REG SDC Y Race: C Location: [place] [address] ASA Classification* ASA Classification ASA Classification: 3 Assessment & Plan Anesthesia* Anesthesia Assessment Anesthesia Assessment: Discussed sedation and/or anesthesia options, risks, benefits, and alternatives with patient/parents/legal guardian/POA. Questions invited. The patient/parents/legal guardian/POA seems to understand and agrees to proceedwith anesthesia plan. Reviewed the physical assessment, medical history, allergy history and patient home medications list prior to surgery/procedure/anesthetic and documented any changes. Performed airway and anesthesia risk assessments. Anesthesia Type Anesthesia Type: MAC History Source History Obtained from:: Patient and Chart Anesthesia Focused Assessment* Temperature: 97.4 F Pulse Rate: 57 Blood Pressure: 136/78 Respiratory Rate: 12 Pulse Ox: 97 Oxygen Delivery Method: Room Air Airway Assessment Mouth opens: >3 cm Mallampati Score: III Teeth Condition: Caps/Crowns (Patient has a couple caps. They are tight.) Neck Range of motion (ROM): Limited ROM Focused Labs Anesthesia Preop lab: CBC WBC 10.5 K/mm3 (4.4-11.0) 03/28/24 06:15 03/28/24 RBC 4.20 M/mm3 (4.6-6.2) L 03/28/24 06:15 03/28/24 Hgb 13.3 g/dL (13.0-16.5) 03/28/24 06:15 03/28/24 Hct 39.3 % (40-54) L 03/28/24 06:15 03/28/24 Plt Count 210 K/mm3 (150-450) 03/28/24 06:15 03/28/24 CHEMISTRY Potassium 4.1 mmol/L (3.5-5.1) 03/28/24 06:15 03/28/24 Sodium 138 mmol/L (136-145) 03/28/24 06:15 03/28/24 Magnesium 2.6 mg/dL (1.6-2.6) 03/27/24 06:35 03/27/24 BUN 24 mg/dL (7-18) H 03/28/24 06:15 03/28/24 Creatinine 1.47 mg/dL (0.70-1.30) H 03/28/24 06:15 Glucose 142 mg/dL (74-106) H 03/28/24 06:15 03/28/24 TSH 0.51 uIU/mL (0.358-3.74) 09/04/16 01:48 COAG PT 14.4 SECONDS (11.7-14.9) 03/26/24 02:15 Pre-Assessment Diagnosis/Proposed Procedure Planned Operative Procedure(s): ERCP Anesthesia History 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 07/02/24 14:53 Any Problems With Anesthesia No 07/02/24 14:53 Cholinesterase deficiency No 07/02/24 14:53 You/Your Family Experience No 07/02/24 14:53 fever (hyperthermia) with Relationship Recent Exposure to Contagious No 07/04/24 08:49 Disease Does patient have nerve No 07/02/24 14:53 stimulator Patient instructed to have device shut off --Does patient have Pacemaker No 07/04/24 08:49 or ICD? When Was Last Pacemaker Check QUESTION #4 FULL TEXT: You/Your Family Experience fever (hyperthermia) with Anesthesia Last Oral Intake Last Oral intake: Last Oral Intake NPO since 19:00 07/04/24 08:49 Meds taken in AM with sips of No 07/04/24 08:49 water? 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 Female No 07/02/24 14:53 HX of Motion Sickness No 07/02/24 14:53 HX of N/V After Surgery No 07/02/24 14:53 Non-Smoker Yes 07/02/24 14:53 Duration of Surgery greater No 07/02/24 14:53 than 60 minutes Number of Risk Factors 1 07/02/24 14:53 PONV Score Low Risk 07/02/24 14:53 Height & Weight Height & Weight: Anesthesia: Height & Weight Height 5 ft 10 in 07/04/24 08:49 Weight: 133 kg 07/04/24 08:49 Body Mass Index (BMI) 42.0 07/04/24 08:49 Respiratory Assessment Respiratory Assessment - rv repair technician: Respiratory Tract Infection Hx - rv repair technician Hx Respiratory Tract Infection No 07/02/24 14:53 STOP Sleep Apnea STOP Sleep Apnea - rv repair technician: STOP Sleep Apnea - rv repair technician Hx Hypertension Yes: CONTROLLED WITH MEDS 07/02/24 14:53 Hx Sleep Apnea Yes 07/02/24 14:53 CPAP Yes 07/02/24 14:53 BIPAP No 07/02/24 14:53 Do you snore loudly (louder than talking or can be heard Do you often feel tired/ fatigued/ sleepy during daytime? Has anyone observed you stop breathing during sleep? STOP Results Positive 07/02/24 14:53 QUESTION #5 FULL TEXT : Do you snore loudly (louder than talking or can be heard through closeddoors)? 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 Specify any problems Hx of Preganancy in last 3 N/A 07/02/24 14:53 Months Nurse Filling Out Transfusion [id number] 07/02/24 14:53 & Questions: Date: 07/02/24 07/02/24 14:53 Time: 14:59 07/02/24 14:53 Patient unable to answer at this time (ie. confused, unrespo /Reproduction History /Reproductive History - rv repair technician: /Reproductive Hx- rv repair technician Hx Now Gestational Age (in weeks): EDC: Hx Hx Para Hx Section SAB PFSH Medical History (Updated 07/04/24 @ 09:[address] 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 Elevated liver enzymes Pancreatic mass High cholesterol Hx of gastroesophageal reflux (GERD) Hypothyroidism Hypertension Home Medications ?Medication ?Instructions ?Recorded ?Last Taken ?Type lisinopril 40 mg tablet 40 mg PO DAILY blood pressur e 01/31/13 07/03/24 History atorvastatin 40 mg tablet 40 mg PO QHS cholesterol #90 09/05/16 07/03/24 Rx TABLETS gabapentin 300 mg capsule 300 mg PO QHS nerve pain 07/03/24 History metoprolol succinate 50 mg 50 mg PO DAILY blood pressu re 10/22/23 07/03/24 History tablet,extended release 24 hr apixaban 5 mg tablet (Eliquis) 5 mg PO BID blood thinn er 03/26/24 07/02/24 History hydrochlorothiazide 25 mg tablet 25 mg PO DAILY reduce fluid 03/26/24 07/03/24 History levothyroxine 125 mcg tablet 125 mcg PO DAILY disorder of 03/26/24 07/03/24 History thyroid gland Allergy/AdvReac Type Severity Reaction Status Date / Time azithromycin (From Zithromax) Allergy Itching Verified 07/04/24 08:42 bee venom protein (honey bee) AdvReac Swelling Verified 07/04/24 08:42 venom-wasp (wasps) AdvReac Swelling Verified 07/04/24 08:42 Surgical History (Updated 07/04/24 @ 09:[address] Abundio Merrill MD) History of total right hip arthroplasty S/P carpal tunnel release History of tonsillectomy History of ERCP Social History Smoking Status: Never smoker Review of Systems (Anesthesia) ROS Narrative System reviewed and no additional complaints, except as documented. 07/04/24 0943 salvatore FORD> Date _ Abundio Merrill MD Cosigner Signature: Date CC: ~ Signed [facility]02-28-2025 Telephone encounter Note* Telephone Encounter - [facility] - 06/28/2024 11:06 AM EST Patient rescheduled on 10/21/2024. [facility]02-28-2025 Miscellaneous Notes* Telephone Encounter - [facility] - 06/28/2024 11:06 AM EST Patient rescheduled on 10/21/2024. * Telephone Encounter - [facility] - 06/24/2024 2:14 PM EST Called patient to reschedule 10/22/[address] Savage, 1st attempt, left . Please offer virtual appointment at [place] [id number] or [facility]. [facility] Telephone encounter Note * Telephone Encounter - [facility] - 06/24/2024 2:14 PM EST Called patient to reschedule 10/22/[address] Savage, 1st attempt, left . Please offer virtual appointment at [place] [address] or [facility]. [facility]01-22-2025 Telephone encounter Note* Telephone Encounter - Nanette Whelan RN - 05/22/2024 6:17 PM EST Levothyroxine taken care of by PCP. PCP requests that line builder Dr. Savage continue to prescribe pt's Eliquis. Pt would like a 90 day supply sent in to [facility]. Order pended for Eliquis for 90 day supply and routed to Dr. Savage. [facility]01-22-2025 Miscellaneous Notes* Telephone Encounter - Nanette Whelan RN - 05/22/2024 6:17 PM EST Levothyroxine taken care of by PCP. PCP requests that line builder Dr. Savage continue to prescribe pt's Eliquis. Pt would like a 90 day supply sent in to [facility]. Order pended for Eliquis for 90 day supply and routed to Dr. Savage. * Telephone Encounter - Leonila Winslow LPN - 05/22/2024 11:35 AM EST .Detailed VM left on pt's identified voicemail of information below. Leonila Winslow LPN * Telephone Encounter - Agnes Diaz MD - 05/21/2024 12:40 PM EST Rx sent for synthroid. Needs to get Eliquis from prescribing physician. * Telephone Encounter - Nanette Whelan RN - 05/21/2024 9:14 AM EST Pt is on Eliquis for hx of PE. A line builder Dr. Victor Manuel Savage, put pt on this when he was hospitalized for the PEs. Pt does follow up with him-has virtual visit in September. Pt is aware that is the prescribing provider but pt was wondering if Dr. Diaz would take over prescribing it? If Dr. Diaz feels pt should continue to get medication from line builder, please call pt back and let him know that. Also please send the refill request for the Eliquis to Dr. Savage. The patient has been identified by name and date of : Yes Caregiver verified no other encounters exist for this prescription request: Yes Caregiver confirmed with patient/requestor that no other refills are due, in the near future, with this provider at this time: Yes The last office visit in the department: 04/01/2024 Does the patient have a future office visit with this provider/department: Yes 08/02/24 Requested Prescriptions Pending Prescriptions Disp Refills apixaban (ELIQUIS) 5 mg tab(s) 180 tablet 1 Sig: Take 1 tablet by mouth two times a day. levothyroxine (SYNTHROID) 125 mcg tablet 90 tablet 3 Sig: TAKE 1 TABLET BY MOUTH EVERY DAY ON AN EMPTY STOMACH FOR THYROID Nanette Whelan RN May 21, 2024 9:14 AM documented [facility] Telephone encounter Note * Telephone Encounter - Leonila Winslow LPN - 05/22/2024 11:35 AM EST .Detailed VM left on pt's identified voicemail of information below. Leonila Winslow LPN [facility]01-21-2025 Telephone encounter Note* Telephone Encounter - Agnes Diaz MD - 05/21/2024 12:40 PM EST Rx sent for synthroid. Needs to get Eliquis from prescribing physician. [facility]01-21-2025 Telephone encounter Note* Telephone Encounter - Nanette Whelan RN - 05/21/2024 9:14 AM EST Pt is on Eliquis for hx of PE. A line builder Dr. Victor Manuel Savage, put pt on this when he was hospitalized for the PEs. Pt does follow up with him-has virtual visit in September. Pt is aware that is the prescribing provider but pt was wondering if Dr. Diaz would take over prescribing it? If Dr. Diaz feels pt should continue to get medication from line builder, please call pt back and let him know that. Also please send the refill request for the Eliquis to Dr. Savage. The patient has been identified by name and date of : Yes Caregiver verified no other encounters exist for this prescription request: Yes Caregiver confirmed with patient/requestor that no other refills are due, in the near future, with this provider at this time: Yes The last office visit in the department: 04/01/2024 Does the patient have a future office visit with this provider/department: Yes 08/02/24 Requested Prescriptions Pending Prescriptions Disp Refills apixaban (ELIQUIS) 5 mg tab(s) 180 tablet 1 Sig: Take 1 tablet by mouth two times a day. levothyroxine (SYNTHROID) 125 mcg tablet 90 tablet 3 Sig: TAKE 1 TABLET BY MOUTH EVERY DAY ON AN EMPTY STOMACH FOR THYROID Nanette Whelan RN May 21, 2024 9:14 AM [facility]12-13-2024 Telephone encounter Note* Telephone Encounter - Agustín Monroy RN - 04/12/2024 2:25 PM EST The patient has been identified by name and date of : Yes Caregiver verified no other encounters exist for this prescription request: Yes Caregiver confirmed with patient/requestor that no other refills are due, in the near future, with this provider at this time: Yes The last office visit in the department: 04/01/2024 Does the patient have a future office visit with this provider/department: No Requested Prescriptions Pending Prescriptions Disp Refills hydroCHLOROthiazide 25 mg tablet 90 tablet 1 Sig: Take 1 tablet by mouth once daily. Agustín Monroy RN April 12, 2024 2:25 PM [facility]12-13-2024 Miscellaneous Notes* Telephone Encounter - Agustín Monroy RN - 04/12/2024 2:25 PM EST The patient has been identified by name and date of : Yes Caregiver verified no other encounters exist for this prescription request: Yes Caregiver confirmed with patient/requestor that no other refills are due, in the near future, with this provider at this time: Yes The last office visit in the department: 04/01/2024 Does the patient have a future office visit with this provider/department: No Requested Prescriptions Pending Prescriptions Disp Refills hydroCHLOROthiazide 25 mg tablet 90 tablet 1 Sig: Take 1 tablet by mouth once daily. Agustín Monroy RN April 12, 2024 2:25 PM documented in this encounterC[facility]12-[facility]-2024 NoteHNO ID: [id number] Author: MITCHEL WALTERS RN Service: ? Author Type: Registered Nurse Type: Progress Notes Filed: 04/08/2024 14:15 Note Text: Transitional Care Management (TCM) Follow-Up Note PCP Update / Actionable Items N/A - No specialty updates needed Patient Source: [facility] (OON) Discharge Outreach Summary: Pt states eating and drinking well. Has f/u with Dr. Sher 04/16 Completed antibiotic therapy. States anxious to discuss stent placement, what happened with testing at [facility]. Patient discharged from [facility] Discharge date: 03/28/24 Admitted for: Abdominal pain Readmission Risk: n/a Value-Based Contract: ACO Contact: Contact made with patient: Yes Spoke to: Patient Validation: Validated the person spoken to is actively involved in the patient's care. The patient was identified by Name and Date of . I'd like to get an update on how you're doing since our last phone call. Is now a good time to talk? Yes Symptoms: Are you feeling about the same, better or worse since leaving the hospital? Better Weekly Outreach: 1st Outreach Medications: Do you have any questions about taking your medications, including which medications you should be on, or do you need refills on your medications? No Patient Questions / Concerns: Do you have any questions related to your discharge? Yes Discussed the patient's questions and/or concerns. If applicable, the appropriate Team/Provider updated in FYI box. Appointment / TCM Follow-Up: Have you had a follow-up visit with your Primary Care Provider or Specialist since you were discharged? Yes Do you need any assistance with scheduling or changing your follow-up appointments? Patient already has an appointment scheduled Education N/A Targets addressed / completed during outreach: Patient has TCM appointment with PC within 14 days Outreach Outcome: Continue TCM Outreach for remainder of 30 days Care Management partners utilized: N/A Mitchel Walters RN April 08, 2024 2:05 [facility]12-09-2024 History of Present illness Narrative* Mitchel Walters RN - 04/08/2024 2:04 PM EST Transitional Care Management (TCM) Follow-Up Note PCP Update / Actionable Items N/A - No specialty updates needed Patient Source: [id number] (OON) Discharge Outreach Summary: Pt states eating and drinking well. Has f/u with Dr. Sher 04/16 Completed antibiotic therapy. States anxious to discuss stent placement, what happened with testing at [facility]. Patient discharged from [facility] Discharge date: 03/28/24 Admitted for: Abdominal pain Readmission Risk: n/a Value-Based Contract: ACO Contact: Contact made with patient: Yes Spoke to: Patient Validation: Validated the person spoken to is actively involved in the patient's care. The patient was identified by Name and Date of . I'd like to get an update on how you're doing since our last phone call. Is now a good time to talk? Yes Symptoms: Are you feeling about the same, better or worse since leaving the hospital? Better Weekly Outreach: 1st Outreach Medications: Do you have any questions about taking your medications, including which medications you should be on, or do you need refills on your medications? No Patient Questions / Concerns: Do you have any questions related to your discharge? Yes Discussed the patient's questions and/or concerns. If applicable, the appropriate Team/Provider updated in FYI box. Appointment / TCM Follow-Up: Have you had a follow-up visit with your Primary Care Provider or Specialist since you were discharged? Yes Do you need any assistance with scheduling or changing your follow-up appointments? Patient alreadyhas an appointment scheduled Education N/A Targets addressed / completed during outreach: Patient has TCM appointment with PC within 14 days Outreach Outcome: Continue TCM Outreach for remainder of 30 days Care Management partners utilized: N/A Mitchel Walters RN April 08, 2024 2:05 PM documented in this encounterC[facility]12-[facility]-2024 NotePatient Outreach ([facility]) FRAN PAREKH ([id number]) 1945 M Date Time Provider Department 04/08/24 MITCHEL [place]S [facility] [place] visit today, we recorded the following information about you: Mitchel Walters RN 04/08/2024 2:15 PM Signed Transitional Care Management (TCM) Follow-Up Note PCP Update / Actionable Items N/A - No specialty updates needed Patient Source: Xfm-sx-Gepmznv (OON) Discharge Outreach Summary: Pt states eating and drinking well. Has f/u with Dr. Sher 04/16 Completed antibiotic therapy. States anxious to discuss stent placement, what happened with testing at [facility]. Patient discharged from [facility] Discharge date: 03/28/24 Admitted for: Abdominal pain Readmission Risk: n/a Value-Based Contract: ACO Contact: Contact made with patient: Yes Spoke to: Patient Validation: Validated the person spoken to is actively involved in the patient's care. The patient was identified by Name and Date of . I'd like to get an update on how you're doing since our last phone call. Is now a good time to talk? Yes Symptoms: Are you feeling about the same, better or worse since leaving the hospital? Better Weekly Outreach: 1st Outreach Medications: Do you have any questions about taking your medications, including which medications you should be on, or do you need refills on your medications? No Patient Questions / Concerns: Do you have any questions related to your discharge? Yes Discussed the patient's questions and/or concerns. If applicable, the appropriate Team/Provider updated in FYI box. Appointment / TCM Follow-Up: Have you had a follow-up visit with your Primary Care Provider or Specialist since you were discharged? Yes Do you need any assistance with scheduling or changing your follow-up appointments? Patient already has an appointment scheduled Education N/A Targets addressed / completed during outreach: Patient has TCM appointment with PC within 14 days Outreach Outcome: Continue TCM Outreach for remainder of 30 days Care Management partners utilized: N/A Mitchel Walters RN April 08, 2024 2:05 PM Allergies As of Date: 04/08/2024 Noted Allergy Reaction NORVASC (AMLODIPINE BESYLATE) 09/14/2016 7 - Swelling Comments: pedal edema VENOM-WASP 01/14/2005 7 - Swelling ZITHROMAX (AZITHROMYCIN) 01/14/2005 9 - Itching Date Reviewed: 04/01/2024 Reviewed by: Eunice Bruce LPN - Fully Assessed Prescriptions as of 04/08/2024 - cefdinir (OMNICEF) 300 mg capsule Take 300 mg by mouth two times a day. - lisinopril (ZESTRIL) 40 mg tablet Take 1 tablet by mouth once daily. - apixaban (ELIQUIS) 5 mg tab(s) Take 1 tablet by mouth two times a day. - tiZANidine (ZANAFLEX) 2 mg tablet Take 1 tablet by mouth every 6 hours as needed. - metoprolol succinate ER (TOPROL XL) 50 mg 24 hr tablet Take 1 tablet by mouth once daily. - ammonium lactate (LAC-HYDRIN) 12 % cream Apply to affected area as needed. Apply on thick skin - apixaban (ELIQUIS) 5 mg tab(s) Take 2 tablets (10 mg) by mouth twice daily for 6 days. Then take 1 tablet (5 mg) by mouth twice daily - hydroCHLOROthiazide 25 mg tablet Take 1 tablet by mouth once daily. - gabapentin (NEURONTIN) 300 mg capsule Take 300 mg by mouth daily at bedtime. - atorvastatin (LIPITOR) 40 mg tablet Take 1 tablet by mouth once daily. - levothyroxine (SYNTHROID) 125 mcg tablet TAKE 1 TABLET BY MOUTH EVERY DAY ON AN EMPTY STOMACH FOR THYROID - amoxicillin (POLYMOX, AMOXIL) 500 mg capsule Take four capsules one hour before dental procedure. - CPAP AutoPAP [id number]. Mask per preference, tubing, filters, humidity. [employer]. Dx: G47.33. Fax 30 day compliance report to [phone]. - CPAP Please provide mask fitting. Pt [...] tablet daily. Problem List As Of Date 04/08/2024 Noted Resolved Primary hypertension [I10] 03/11/2005 Hypertrophy of prostate with urinary obstructio*06/01/2006 BLADDER NECK OBSTRUCTION [N32.0] 06/01/2006 Plantar fascial fibromatosis [M72.2] 11/02/2006 05/09/2014 Ingrowing nail [L60.0] 11/26/2007 05/09/2014 Hypothyroidism [E03.9] 03/25/2009 Open fracture of distal phalangeal tuft [[id number]*08/31/2011 05/09/2014 Internal derangement of right knee [M23.91] 05/07/2012 Intention tremor [G25.2] 05/07/2012 Benign prostatic hyperplasia with lower urinary*01/15/2013 Nocturia [R35.1] 01/15/2013 Right flank pain [R10.9] 02/04/2013 05/09/2014 Right kidney stone [N20.0] 02/04/2013 05/09/2014 Right renal mass [N28.89] (more content not included)...[facility]12-02-2024 NoteHNO ID: [id number] Author: MARILIA OROZCO APRN.SUPERVISOR REMELT Service: ? Author Type: Nurse Practitioner Type: Progress Notes Filed: 04/01/2024 14:48 Note Text: 04/01/2024 Patient presents with: Hospital F/U: [facility] 03/26-03/28 for pancreatitis SUBJECTIVE: This is a 78 year old that is here today for Above Complaints. HOSPITAL/ER FOLLOW UP: Reason for visit: abdominal pain, nausea, vomiting and dizziness Which facility: [facility] Date of visit: 03/26/2024-03/28/2024 Diagnosis: choledocholithiasis Testing done: CT abd/pel, blood work, MRCP, ERCP- stone completely removed and stent placed Treatment given: IV antibiotics Discharged on Cefdinir for UTI has been taking and tolerating without side effects. Has one day left of antibiotics. Able to tolerate regular diet. Normal BM since being home. Denies fevers, chills, abdominal pain, nausea, vomiting, constipation,diarrhea Reports did schedule his follow-up with GI but he reports he can not get in until June. Hospital records reviewed Transition Care Management (TCM) Initial Outreach PCP Update / Actionable Items HRTIC TCM Home Visit Referral Source of Stratification: TCM HUB Hospital Admission Status: Discharged Readmission Risk Score: n/a Patient's zip code: [address] Is zip code within program service area: No Patient meets program referral criteria: No Patient does not qualify for High Risk TCM Home Visit program due to: Patient's zip code is not located within program service area Readmission Risk Score does not meet criteria Disposition: Patient does not qualify for HRTIC, will provide TCM outreach follow-up for 30-days Patient Source: Wku-kb-Xgyyygy (OON) Discharge Outreach Summary: Pt reports he is feeling well, caught up on sleep last night. States eating and drinking OK . No additional episodes of nausea, vomiting or abdominal pain , fevers, chills since dc. Started Omnicef as rx. Pt reports LVM for f/u with Dr. Nikky DSOUZA and has f/u with PCP office 04/01 Patient discharged from [facility] Discharge date: 03/28/24 Admitted for: Abdominal pain Readmission Risk: n/a Value-Based Contract: ACO Contact: Contact made with patient: Yes Hi, my name is Mitchel Walters RN and I am calling from the [facility] on behalf of your Primary Care Provider, Agnes Diaz MD. I understand you were recently in the hospital, so I am calling to check in with you to ensure you are feeling well now that you are home. May I ask you a few questions related to your hospital stay and well-being? Yes Spoke to: Patient Validation: Validated the person spoken to is actively involved in the patient's care. The patient was identified by Name and Date of . Symptoms: Are you feeling about the same, better or worse since leaving the hospital? Better Medications: Do you have any questions about taking your medications, including which medications you should be on, or do you need refills on your medications? No Medication Review: Partial mediation review completed, per patient preference Pt taking Omnicef as rx Discharge Instructions: Your Discharge Instructions / After Visit Summary (AVS) are important in guiding you through the recovery process. Do you have any questions related to your discharge instructions? No Home Care: Were you discharged with home care? No Equipment: Do you have all the necessary equipment and supplies needed at your home? Yes The patient verbalizes understanding the use of the equipment and supplies Social: We would like to make sure you have what you need so that your basics needs are met - including your personal safety, food, housing and medications. Would you like to speak with a social work child care team lead to help give you support for any of these needs? not assessed It can be normal to feel anxious or down during a time like this. Would you like to talk to a mental health professional about how you have been feeling? not assessed Action Taken: No needs verbalized. No action required. Follow-Up Appointment: [Appointment / TCM Follow-up within 14 days] I would like to help you schedule a hospital follow-up virtual or telephone visit with your PCP. This is a great way for you to connect with your provider to ensure you have safely transitioned home. If you are agreeable, I will send your request to a guide dog instructor who will contact and assist you with that appointment. This will give you an opportunity to ask any questions or address any concerns you may have with your PCP. Inform the patient that if they have any questions or concerns prior to that appointment, to call their PCP's office right away. Appointment Action: No action required; patient already has appointment scheduled. Education Patient and family educated on issues/questions related to reason for admission, transition of care topics, and follow-up needed upon discharge. Targets (more content not included)...[facility]12-02-2024 History of Present illness Narrative* Marilia Orozco APRN.SUPERVISOR REMELT - 04/01/2024 11:49 AM EST 04/01/2024 Patient presents with: Hospital F/U: [facility] 03/26-03/28 for pancreatitis SUBJECTIVE: This is a 78 year old that is here today for Above Complaints. HOSPITAL/ER FOLLOW UP: Reason for visit: abdominal pain, nausea, vomiting and dizziness Which facility: [facility] Date of visit: 03/26/2024-03/28/2024 Diagnosis: choledocholithiasis Testing done: CT abd/pel, blood work, MRCP, ERCP- stone completely removed and stent placed Treatment given: IV antibiotics Discharged on Cefdinir for UTI has been taking and tolerating without side effects. Has one day left of antibiotics. Able to tolerate regular diet. Normal BM since being home. Denies fevers, chills, abdominal pain, nausea, vomiting, constipation,diarrhea Reports did schedule his follow-up with GI but he reports he can not get in until June. Hospital records reviewed Transition Care Management (TCM) Initial Outreach PCP Update / Actionable Items HRTIC TCM Home Visit Referral Source of Stratification: [facility]CM [facility] Hospital Admission Status: Discharged Readmission Risk Score: n/a Patient's zip code: [address] Is zip code within program service area: No Patient meets program referral criteria: No Patient does not qualify for High Risk TCM Home Visit program due to: Patient's zip code is not located within program service area Readmission Risk Score does not meet criteria Disposition: Patient does not qualify for HRTIC, will provide TCM outreach follow-up for 30-days Patient Source: [facility] (OON) Discharge Outreach Summary: Pt reports he is feeling well, caught up on sleep last night. States eating and drinking OK . No additional episodes of nausea, vomiting or abdominal pain , fevers, chills since dc. Started Omnicef as rx. Pt reports LVM for f/u with Dr. Nikky DSOUZA and has f/u with PCP office 04/01 Patient discharged from [facility] Discharge date: 03/28/24 Admitted for: Abdominal pain Readmission Risk: n/a Value-Based Contract: ACO Contact: Contact made with patient: Yes Hi, my name is Mitchel Walters RN and I am calling from the [facility] on behalf of your Primary Care Provider, Agnes Diaz MD. I understand you were recently in the hospital, so I am calling to check in with you to ensure you are feeling well now that you are home. May I ask you a few questions related to your hospital stay and well-being? Yes Spoke to: Patient Validation: Validated the person spoken to is actively involved in the patient's care. The patient was identified by Name and Date of . Symptoms: Are you feeling about the same, better or worse since leaving the hospital? Better Medications: Do you have any questions about taking your medications, including which medications you should be on, or do you need refills on your medications? No Medication Review: Partial mediation review completed, per patient preference Pt taking Omnicef as rx Discharge Instructions: Your Discharge Instructions / After Visit Summary (AVS) are important in guiding you through the recovery process. Do you have any questions related to your discharge instructions? No Home Care: Were you discharged with home care? No Equipment: Do you have all the necessary equipment and supplies needed at your home? Yes The patient verbalizes understanding the use of the equipment and supplies Social: We would like to make sure you have what you need so that your basics needs are met - including your personal safety, food, housing and medications. Would you like to speak with a social work child care team lead to help give you support for any of these needs? not assessed It can be normal to feel anxious or down during a time like this. Would you like to talk to a mental health professional about how you have been feeling? not assessed Action Taken: No needs verbalized. No action required. Follow-Up Appointment: [Appointment / TCM Follow-up within 14 days] I would like to help you schedule a hospital follow-up virtual or telephone visit with your PCP. This is a great way for you to connect with your provider to ensure you have safely transitioned home.If you are agreeable, I will send your request to a guide dog instructor who will contact and assist you with that appointment. This will give you an opportunity to ask any questions or address any concerns youmay have with your PCP. Inform the patient that if they have any questions or concerns prior to that appointment, to call their PCP's office right away. Appointment Action: No action required; patient already has appointment scheduled. Education Patient and family educated on issues/questions related to reason for admission, transition of caretopics, and follow-up needed upon discharge. 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 Chowdary in [place] Stage 3a chronic kidney disease (HCC) Venous insufficiency ALLERGIES Norvasc [Amlodipine Besylate], Venom-Wasp, and Zithromax [Azithromycin] MEDICATIONS Current Outpatient Medications Medication Sig cefdinir (OMNICEF) 300 mg capsule Take 300 mg by mouth two times a day. lisinopril (ZESTRIL) 40 mg tablet Take 1 tablet by mouth once daily. apixaban (ELIQUIS) 5 mg tab(s) Take 1 tablet by mouth two times a day. tiZANidine (ZANAFLEX) 2 mg tablet Take 1 tablet by mouth every 6 hours as needed. sulfamethoxazole-trimethoprim (BACTRIM DS) 800-160 mg per tablet Take 1 tablet by mouth every 12 hours. metoprolol succinate ER (TOPROL XL) 50 mg 24 hr tablet Take 1 tablet by mouth once daily. ammonium lactate (LAC-HYDRIN) 12 % cream Apply to affected area as needed. Apply on thick skin apixaban (ELIQUIS) 5 mg tab(s) Take 2 tablets (10 mg) by mouth twice daily for 6 days. Then take 1 tablet (5 mg) by mouth twice daily hydroCHLOROthiazide 25 mg tablet Take 1 tablet by mouth once daily. gabapentin (NEURONTIN) 300 mg capsule Take 300 mg by mouth daily at bedtime. atorvastatin (LIPITOR) 40 mg tablet Take 1 tablet by mouth once daily. levothyroxine (SYNTHROID) 125 mcg tablet TAKE 1 TABLET BY MOUTH EVERY DAY ON AN EMPTY STOMACH FOR THYROID amoxicillin (POLYMOX, AMOXIL) 500 mg capsule Take four capsules one hour before dental procedure. (Patient not taking: Reported on 12/19/2023) CPAP AutoPAP [id number]. Mask per preference, tubing, filters, humidity. [employer]. Dx: G47.33. Fax 30 day compliance report to [phone]. CPAP Please provide mask fitting. Pt with subjective and some degree objective leaks. Prefers nasaltype mask. Thank you. DME = [facility] acetaminophen [...] Social History Tobacco Use Smoking status: Never Passive exposure: Past Smokeless tobacco: Never Vaping Use Vaping status: Never Used Substance Use Topics Alcohol use: No Drug use: No REVIEW OF SYSTEMS All other reviewed and negative other than HPI. OBJECTIVE: BP 138/82 Pulse (!) 59 Temp 36.6 C (97.9 F) Resp 18 Wt 128.6 kg (283 lb 8.2 oz) SpO2 96% BMI 38.45 kg/m . Vital signs reviewed by this provider. APPEARANCE Well appearing, alert, in no acute distress, well-hydrated, well nourished. EYES PERRLA, conjunctiva and sclera normal. HEART RRR with normal S1 and S2, no murmurs, no gallops, no JVD appreciated LUNG clear to auscultation ABDOMEN bowel sounds normoactive, no bruits, soft, non-tender, non-distended, without organomegaly or palpable masses, large linear ecchymotic area to left lower abdomen extending laterally- reports he believes this happened when he fell prior to going to hospital Depression Screening Never done Anxiety Screening Never done BP Controlled (<130/80) due on 07/30/2021 Advance Directive Discussion Never done LDL Cholesterol due on 11/03/2023 Serum Creatinine due on 10/26/2024 Hemoglobin/Hematocrit due on 01/18/2025 Annual PCP Team Chronic Disease Visit due on 04/01/2025 Diabetes Screening due on 10/26/2026 DTaP,Tdap,Td Vaccine(3 - Td or Tdap) due on 07/31/2029 Influenza Vaccine Completed RSV Vaccine Completed Shingrix Vaccine Completed Covid-19 Vaccine Completed Pneumococcal Vaccine: 65+ Completed Colorectal Cancer Screening Discontinued ASSESSMENT/PLAN: 1. Hospital discharge follow-up - ICD9: V67.59, ICD10: Z09 (primary diagnosis) - improved - plan as below 2. Calculus of bile duct without cholecystitis with obstruction - ICD9: 574.51, ICD10: K80.51 - improved - follow-up with GI as scheduled 3. Fall in home, subsequent encounter - ICD9: V58.89, E888.9, ICD10: W19.XXXD, Y92.009 - patient reports he had dizziness when ill - feeling improved 4. Traumatic ecchymosis of abdominal wall, subsequent encounter - ICD9: V58.89, 922.2, ICD10: S30.1XXD - discussed with patient may take time to fully resolve - may use heating pad for 15 minutes at a time Marilia Orozco APRN.RUBÉN Prescription instructions reviewed with patient as applicable. Patient advised if symptoms do not improve or if symptoms worsen sooner, to contact their primary care physician. Potential red flag symptoms discussed with the patient. Reviewed appropriate action plan to take if red flag symptoms occur. Patient agreeable to treatment plan. [facility] NoteHNO ID: [id number] Author: MITCHEL WALTERS RN Service: ? Author Type: Registered Nurse Type: Progress Notes Filed: 03/29/2024 10:35 Note Text: Transition Care Management (TCM) Initial Outreach PCP Update / Actionable Items HRTIC TCM Home Visit Referral Source of Stratification: TCM [facility] Hospital Admission Status: Discharged Readmission Risk Score: n/a Patient's zip code: [address] Is zip code within program service area: No Patient meets program referral criteria: No Patient does not qualify for High Risk TCM Home Visit program due to: Patient's zip code is not located within program service area Readmission Risk Score does not meet criteria Disposition: Patient does not qualify for HRTIC, will provide TCM outreach follow-up for 30-days Patient Source: [facility] (OON) Discharge Outreach Summary: Pt reports he is feeling well, caught up on sleep last night. States eating and drinking OK . No additional episodes of nausea, vomiting or abdominal pain , fevers, chills since dc. Started Omnicef as rx. Pt reports LVM for f/u with Dr. Nikky DSOUZA and has f/u with PCP office 04/01 Patient discharged from [facility] Discharge date: 03/28/24 Admitted for: Abdominal pain Readmission Risk: n/a Value-Based Contract: ACO Contact: Contact made with patient: Yes Hi, my name is Mitchel Walters RN and I am calling from the [facility] on behalf of your Primary Care Provider, Agnes Diaz MD. I understand you were recently in the hospital, so I am calling to check in with you to ensure you are feeling well now that you are home. May I ask you a few questions related to your hospital stay and well-being? Yes Spoke to: Patient Validation: Validated the person spoken to is actively involved in the patient's care. The patient was identified by Name and Date of . Symptoms: Are you feeling about the same, better or worse since leaving the hospital? Better Medications: Do you have any questions about taking your medications, including which medications you should be on, or do you need refills on your medications? No Medication Review: Partial mediation review completed, per patient preference Pt taking Omnicef as rx Discharge Instructions: Your Discharge Instructions / After Visit Summary (AVS) are important in guiding you through the recovery process. Do you have any questions related to your discharge instructions? No Home Care: Were you discharged with home care? No Equipment: Do you have all the necessary equipment and supplies needed at your home? Yes The patient verbalizes understanding the use of the equipment and supplies Social: We would like to make sure you have what you need so that your basics needs are met - including your personal safety, food, housing and medications. Would you like to speak with a social work child care team lead to help give you support for any of these needs? not assessed It can be normal to feel anxious or down during a time like this. Would you like to talk to a mental health professional about how you have been feeling? not assessed Action Taken: No needs verbalized. No action required. Follow-Up Appointment: [Appointment / TCM Follow-up within 14 days] I would like to help you schedule a hospital follow-up virtual or telephone visit with your PCP. This is a great way for you to connect with your provider to ensure you have safely transitioned home. If you are agreeable, I will send your request to a guide dog instructor who will contact and assist you with that appointment. This will give you an opportunity to ask any questions or address any concerns you may have with your PCP. Inform the patient that if they have any questions or concerns prior to that appointment, to call their PCP's office right away. Appointment Action: No action required; patient already has appointment scheduled. Education Patient and family educated on issues/questions related to reason for admission, transition of care topics, and follow-up needed upon discharge. Targets addressed / completed during outreach: Contact patient within two (2) business days Outreach Outcome: Enrolled in TCM Care Management partners utilized: N/A Mitchel Walters RN March 29, 2024 10:22 [facility]11-29-2024 History of Present illness Narrative* Mitchel Walters RN - 03/29/2024 10:17 AM EST Transition Care Management (TCM) Initial Outreach PCP Update / Actionable Items HRTIC TCM Home Visit Referral Source of Stratification: [facility] Hospital Admission Status: Discharged Readmission Risk Score: n/a Patient's zip code: [address] Is zip code within program service area: No Patient meets program referral criteria: No Patient does not qualify for High Risk TCM Home Visit program due to: Patient's zip code is not located within program service area Readmission Risk Score does not meet criteria Disposition: Patient does not qualify for HRTIC, will provide TCM outreach follow-up for 30-days Patient Source: [facility] (OON) Discharge Outreach Summary: Pt reports he is feeling well, caught up on sleep last night. States eating and drinking OK . No additional episodes of nausea, vomiting or abdominal pain , fevers, chills since dc. Started Omnicef as rx. Pt reports LVM for f/u with Dr. Nikky DSOUZA and has f/u with PCP office 04/01 Patient discharged from [facility] Discharge date: 03/28/24 Admitted for: Abdominal pain Readmission Risk: n/a Value-Based Contract: ACO Contact: Contact made with patient: Yes Hi, my name is Mitchel Walters RN and I am calling from the [facility] on behalf of your Primary Care Provider, Agnes Diaz MD. I understand you were recently in the hospital, so I am calling to check in with you to ensure you are feeling well now that you are home. May I ask you a few questions related to your hospital stay and well-being? Yes Spoke to: Patient Validation: Validated the person spoken to is actively involved in the patient's care. The patient was identified by Name and Date of . Symptoms: Are you feeling about the same, better or worse since leaving the hospital? Better Medications: Do you have any questions about taking your medications, including which medications you should be on, or do you need refills on your medications? No Medication Review: Partial mediation review completed, per patient preference Pt taking Omnicef as rx Discharge Instructions: Your Discharge Instructions / After Visit Summary (AVS) are important in guiding you through the recovery process. Do you have any questions related to your discharge instructions? No Home Care: Were you discharged with home care? No Equipment: Do you have all the necessary equipment and supplies needed at your home? Yes The patient verbalizes understanding the use of the equipment and supplies Social: We would like to make sure you have what you need so that your basics needs are met - including your personal safety, food, housing and medications. Would you like to speak with a social work child care team lead to help give you support for any of these needs? not assessed It can be normal to feel anxious or down during a time like this. Would you like to talk to a mental health professional about how you have been feeling? not assessed Action Taken: No needs verbalized. No action required. Follow-Up Appointment: [Appointment / TCM Follow-up within 14 days] I would like to help you schedule a hospital follow-up virtual or telephone visit with your PCP. This is a great way for you to connect with your provider to ensure you have safely transitioned home.If you are agreeable, I will send your request to a guide dog instructor who will contact and assist you with that appointment. This will give you an opportunity to ask any questions or address any concerns youmay have with your PCP. Inform the patient that if they have any questions or concerns prior to that appointment, to call their PCP's office right away. Appointment Action: No action required; patient already has appointment scheduled. Education Patient and family educated on issues/questions related to reason for admission, transition of caretopics, and follow-up needed upon discharge. Targets addressed / completed during outreach: Contact patient within two (2) business days Outreach Outcome: Enrolled in TCM Care Management partners utilized: N/A Mitchel Walters RN March 29, 2024 10:22 AM documented in this encounterC[facility] NotePatient Outreach ([facility]) FRAN PAREKH ([id number]) 1945 M Date Time Provider Department 03/29/24 MITCHEL WALTERS During your visit today, we recorded the following information about you: Mitchel Walters RN 03/29/2024 10:35 AM Signed Transition Care Management (TCM) Initial Outreach PCP Update / Actionable Items HRTIC TCM Home Visit Referral Source of Stratification: [facility] Hospital Admission Status: Discharged Readmission Risk Score: n/a Patient's zip code: [address] Is zip code within program service area: No Patient meets program referral criteria: No Patient does not qualify for High Risk TCM Home Visit program due to: Patient's zip code is not located within program service area Readmission Risk Score does not meet criteria Disposition: Patient does not qualify for HRTIC, will provide TCM outreach follow-up for 30-days Patient Source: Kzb-qo-Wwydgqw (OON) Discharge Outreach Summary: Pt reports he is feeling well, caught up on sleep last night. States eating and drinking OK . No additional episodes of nausea, vomiting or abdominal pain , fevers, chills since dc. Started Omnicef as rx. Pt reports LVM for f/u with Dr. Nikky DSOUZA and has f/u with PCP office 04/01 Patient discharged from [facility] Discharge date: 03/28/24 Admitted for: Abdominal pain Readmission Risk: n/a Value-Based Contract: ACO Contact: Contact made with patient: Yes Hi, my name is Mitchel Walters RN and I am calling from the [facility] on behalf of your Primary Care Provider, Agnes Diaz MD. I understand you were recently in the hospital, so I am calling to check in with you to ensure you are feeling well now that you are home. May I ask you a few questions related to your hospital stay and well-being? Yes Spoke to: Patient Validation: Validated the person spoken to is actively involved in the patient's care. The patient was identified by Name and Date of . Symptoms: Are you feeling about the same, better or worse since leaving the hospital? Better Medications: Do you have any questions about taking your medications, including which medications you should be on, or do you need refills on your medications? No Medication Review: Partial mediation review completed, per patient preference Pt taking Omnicef as rx Discharge Instructions: Your Discharge Instructions / After Visit Summary (AVS) are important in guiding you through the recovery process. Do you have any questions related to your discharge instructions? No Home Care: Were you discharged with home care? No Equipment: Do you have all the necessary equipment and supplies needed at your home? Yes The patient verbalizes understanding the use of the equipment and supplies Social: We would like to make sure you have what you need so that your basics needs are met - including your personal safety, food, housing and medications. Would you like to speak with a social work child care team lead to help give you support for any of these needs? not assessed It can be normal to feel anxious or down during a time like this. Would you like to talk to a mental health professional about how you have been feeling? not assessed Action Taken: No needs verbalized. No action required. Follow-Up Appointment: [Appointment / TCM Follow-up within 14 days] I would like to help you schedule a hospital follow-up virtual or telephone visit with your PCP. This is a great way for you to connect with your provider to ensure you have safely transitioned home. If you are agreeable, I will send your request to a guide dog instructor who will contact and assist you with that appointment. This will give you an opportunity to ask any questions or address any concerns you may have with your PCP. Inform the patient that if they have any questions or concerns prior to that appointment, to call their PCP's office right away. Appointment Action: No action required; patient already has appointment scheduled. Education Patient and family educated on issues/questions related to reason for admission, transition of care topics, and follow-up needed upon discharge. Targets addressed / completed during outreach: Contact patient within two (2) business days Outreach Outcome: Enrolled in TCM Care Management partners utilized: N/A Mitchel Walters RN March 29, 2024 10:22 AM Allergies As of Date: 03/29/2024 Noted Allergy Reaction NORVASC (AMLODIPINE BESYLATE) 09/14/2016 7 - Swelling Comments: pedal edema VENOM-WASP 01/14/2005 7 - Swelling ZITHROMAX (AZITHROMYCIN) 01/14/2005 9 - Itching Date Reviewed: 02/14/2024 Reviewed by: Eunice Bruce LPN - Fully Assessed Reason for Visit: Transition Of Care [4074] Cmt: AMANDA / AMADEO [facility] 03/28/24 Prescriptions as of 03/29/2024 - cefdinir (OMNICEF) 3 (more content not included)...[facility] 03-28-2024 [facility]11-26-2024 Evaluation note* Diagnosis Onset Date Resolution Status Admit Date Choledocholithiasis resolved Novem 2023 6:13am Nausea and vomiting resolved Novem 2023 6:13am 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 March 26, 2 024 6:13am Elevated liver enzymes inactive No vember 2023 6:13am Pancreatic mass inactive March 26, 2024 6:13am Choledocholithiasis acute Decem 2023 7:14am 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, 2024 7:14am Pancreatitis acute March 7:14am 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 8:24am Choledocholithiasis acute July 04, 2024 8:24am [facility] Work Phone: 1(779) 124-635811-18-2024 Telephone encounter Note* Telephone Encounter - Malachi Castillo RN - 03/18/2024 8:04 AM EST The patient has been identified by name and date of : Yes Caregiver verified no other encounters exist for this prescription request: Yes Caregiver confirmed with patient/requestor that no other refills are due, in the near future, with this provider at this time: Yes The last office visit in the department: 02/14/2024 Does the patient have a future office visit with this provider/department: No Visit date not found Requested Prescriptions Pending Prescriptions Disp Refills lisinopril (ZESTRIL) 40 mg tablet 90 tablet 1 Sig: Take 1 tablet by mouth once daily. Malachi Castillo RN March 18, 2024 8:04 AM [facility]11-18-2024 Miscellaneous Notes* Telephone Encounter - Malachi Castillo RN - 03/18/2024 8:04 AM EST The patient has been identified by name and date of : Yes Caregiver verified no other encounters exist for this prescription request: Yes Caregiver confirmed with patient/requestor that no other refills are due, in the near future, with this provider at this time: Yes The last office visit in the department: 02/14/2024 Does the patient have a future office visit with this provider/department: No Visit date not found Requested Prescriptions Pending Prescriptions Disp Refills lisinopril (ZESTRIL) 40 mg tablet 90 tablet 1 Sig: Take 1 tablet by mouth once daily. Malachi Castillo RN March 18, 2024 8:04 AM documented [facility] History of Present illness Narrative* Karen Wing RT(R) - 02/23/2024 10:10 AM EDT Radiology Service Progress Note PATIENT NAME: Fran Parekh DATE OF SERVICE: February 23, 2024 TIME: 10:15 AM PATIENT IDENTITY VERIFICATION COMPLETED USING TWO (2) IDENTIFIERS: Name and Date of confirmedby patient verbally. FALL SCREENING: Has the patient had 2 falls in the last year or 1 fall with injury or currently using an Ambulatory Assistive Device (Walker, Cane, Wheelchair, Crutches, etc.)? No PATIENT GENDER DATA: Male PATIENT RELEVANT IMPLANT DATA REVIEWED: Yes PATIENT PRESENTS WITH AN IMPLANTABLE OR ATTACHED LITERACY COACH: No RADIOLOGY DEPARTMENT: General X-ray: Exam(s) Completed: Spine X-Ray(s): Cervical AP / LAT Upper Extremity X-Ray(s): Shoulder, AP / TRUE AP left PERIPHERAL IV DATA: Not applicable SIGNED BY: RT Robby(Tarah) February 23, 2024 10:15 AM documented in this encounterC[facility]-25-2024 NoteHNO ID: [id number] Author: KAREN WING RT(R) Service: Radiology Author Type: Technologist Type: Progress Notes Filed: 02/23/2024 10:30 Note Text: Radiology Service Progress Note PATIENT NAME: Fran Parekh DATE OF SERVICE: February 23, 2024 TIME: 10:15 AM PATIENT IDENTITY VERIFICATION COMPLETED USING TWO (2) IDENTIFIERS: Name and Date of confirmed by patient verbally. FALL SCREENING: Has the patient had 2 falls in the last year or 1 fall with injury or currently using an Ambulatory Assistive Device (Walker, Cane, Wheelchair, Crutches, etc.)? No PATIENT GENDER DATA: Male PATIENT RELEVANT IMPLANT DATA REVIEWED: Yes PATIENT PRESENTS WITH AN IMPLANTABLE OR ATTACHED LITERACY COACH: No RADIOLOGY DEPARTMENT: General X-ray: Exam(s) Completed: Spine X-Ray(s): Cervical AP / LAT Upper Extremity X-Ray(s): Shoulder, AP / TRUE AP left PERIPHERAL IV DATA: Not applicable SIGNED BY: RT Robby(Tarah) February 23, 2024 10:15 [facility]10-23-2024 Telephone encounter Note* Telephone Encounter - Carli Bowen RN - 02/21/2024 8:32 AM EDT The patient has been identified by name and date of : Yes Caregiver verified no other encounters exist for this prescription request: Yes Caregiver confirmed with patient/requestor that no other refills are due, in the near future, with this provider at this time: Yes The last office visit in the department: 11/09/2023 Does the patient have a future office visit with this provider/department: Yes 10/22/2024 Requested Prescriptions Pending Prescriptions Disp Refills apixaban (ELIQUIS) 5 mg tab(s) 60 tablet 2 Sig: Take 1 tablet by mouth two times a day. Carli Bowen RN February 21, 2024 8:32 AM [facility]10-23-2024 Miscellaneous Notes* Telephone Encounter - Carli Bowen RN - 02/21/2024 8:32 AM EDT The patient has been identified by name and date of : Yes Caregiver verified no other encounters exist for this prescription request: Yes Caregiver confirmed with patient/requestor that no other refills are due, in the near future, with this provider at this time: Yes The last office visit in the department: 11/09/2023 Does the patient have a future office visit with this provider/department: Yes 10/22/2024 Requested Prescriptions Pending Prescriptions Disp Refills apixaban (ELIQUIS) 5 mg tab(s) 60 tablet 2 Sig: Take 1 tablet by mouth two times a day. Carli Bowen RN February 21, 2024 8:32 AM documented in this encounterC[facility]10-16-2024 NoteHNO ID: [id number] Author: MARILIA OROZCO APRN.SUPERVISOR REMELT Service: ? Author Type: Nurse Practitioner Type: Progress Notes Filed: 02/14/2024 16:37 Note Text: 02/14/2024 Patient presents with: Follow Up: Right leg swelling Pain: Left shoulder/upper back into neck pain SUBJECTIVE: This is a 78 year old that is here today for Above Complaints.. ONSET: Monday afternoon after lifting boxes LOCATION: left shoulder/back/neck DURATION: constant CHARACTERISTICS: oliver AGGRAVATING FEATURES: neck flexion ALLEVIATING FEATURES: tylenol Hurt it playing [employer] years ago. Denies past surgeries,extremity numbness, tingling, weakness, swelling or redness Right leg still with swelling. Wants to make sure he does not have any cellulitis. Denies fevers, chills, pain,increasing redness, increased swelling, warmth or red streaking PAST MEDICAL HISTORY Diagnosis Date Angina at [...] of skin of nose Dr. Chowdary in [place] Stage 3a chronic kidney disease (HCC) Venous insufficiency ALLERGIES Norvasc [Amlodipine Besylate], Venom-Wasp, and Zithromax [Azithromycin] MEDICATIONS Current Outpatient Medications Medication Sig sulfamethoxazole-trimethoprim (BACTRIM DS) 800-160 mg per tablet Take 1 tablet by mouth every 12 hours. cephALEXin (KEFLEX) 500 mg capsule Take 1 capsule by mouth three times a day. metoprolol succinate ER (TOPROL XL) 50 mg 24 hr tablet Take 1 tablet by mouth once daily. ammonium lactate (LAC-HYDRIN) 12 % cream Apply to affected area as needed. Apply on thick skin apixaban (ELIQUIS) 5 mg tab(s) Take 1 tablet by mouth two times a day. apixaban (ELIQUIS) 5 mg tab(s) Take 2 tablets (10 mg) by mouth twice daily for 6 days. Then take 1 tablet (5 mg) by mouth twice daily lisinopril (ZESTRIL) 40 mg tablet Take 1 tablet by mouth once daily. hydroCHLOROthiazide 25 mg tablet Take 1 tablet by mouth once daily. gabapentin (NEURONTIN) 300 mg capsule Take 300 mg by mouth daily at bedtime. atorvastatin (LIPITOR) 40 mg tablet Take 1 tablet by mouth once daily. levothyroxine (SYNTHROID) 125 mcg tablet TAKE 1 TABLET BY MOUTH EVERY DAY ON AN EMPTY STOMACH FOR THYROID amoxicillin (POLYMOX, AMOXIL) 500 mg capsule Take four capsules one hour before dental procedure. (Patient not taking: Reported on 12/19/2023) CPAP AutoPAP [id number]. Mask per preference, tubing, filters, humidity. Lifetime Supplies. Dx: G47.33. Fax 30 day compliance report to [phone]. CPAP Please provide mask fitting. Pt with [...] Social History Tobacco Use Smoking status: Never Passive exposure: Past Smokeless tobacco: Never Vaping Use Vaping status: Never Used Substance Use Topics Alcohol use: No Drug use: No REVIEW OF SYSTEMS All other reviewed and negative other than HPI. OBJECTIVE: BP 138/84 Pulse 60 Resp 18 Wt 132.2 kg (291 lb 7.2 oz) SpO2 95% BMI 39.53 kg/m? . Vital signs reviewed by this provider. APPEARANCE Well appearing, alert, in no acute distress, well-hydrated, well nourished. EYES conjunctiva and sclera normal. NECK: FROM. Reports discomfort with neck flexion, rotation and lateral bending. Negative Spurling SKIN Skin color, texture, turgor normal, no suspicious rashes or lesions to exposed skin UPPER BACK. No obvious deformity, skin rashes swelling or erythema.Point tenderness upper scapula LEGS: right lower leg remains more swollen than right. Moises complexion without excessive warmth, pain or red streaking LEFT SHOULDER: No obvious deformity, erythema, rashes, or ecchymosis. No TTP. FROM. Reports some discomfort to upper scapula with neck flexion, neck rotation and lateral bending. Negative Reese, NEER and drop arm tests Depression Screening Never done (more content not included)...[facility]10-16-2024 History of Present illness Narrative* Podlogar, SELENE Capellan.RUBÉN - 02/14/2024 11:34 AM EDT 02/14/2024 Patient presents with: Follow Up: Right leg swelling Pain: Left shoulder/upper back into neck pain SUBJECTIVE: This is a 78 year old that is here today for Above Complaints.. ONSET: Monday afternoon after lifting boxes LOCATION: left shoulder/back/neck DURATION: constant CHARACTERISTICS: oliver AGGRAVATING FEATURES: neck flexion ALLEVIATING FEATURES: tylenol Hurt it playing [employer] years ago. Denies past surgeries,extremity numbness, tingling, weakness, swelling or redness Right leg still with swelling. Wants to make sure he does not have any cellulitis. Denies fevers, chills, pain,increasing redness, increased swelling, warmth or red streaking PAST MEDICAL HISTORY Diagnosis Date Angina at [...] of skin of nose Dr. Chowdary in [place] Stage 3a chronic kidney disease (HCC) Venous insufficiency ALLERGIES Norvasc [Amlodipine Besylate], Venom-Wasp, and Zithromax [Azithromycin] MEDICATIONS Current Outpatient Medications Medication Sig sulfamethoxazole-trimethoprim (BACTRIM DS) 800-160 mg per tablet Take 1 tablet by mouth every 12 hours. cephALEXin (KEFLEX) 500 mg capsule Take 1 capsule by mouth three times a day. metoprolol succinate ER (TOPROL XL) 50 mg 24 hr tablet Take 1 tablet by mouth once daily. ammonium lactate (LAC-HYDRIN) 12 % cream Apply to affected area as needed. Apply on thick skin apixaban (ELIQUIS) 5 mg tab(s) Take 1 tablet by mouth two times a day. apixaban (ELIQUIS) 5 mg tab(s) Take 2 tablets (10 mg) by mouth twice daily for 6 days. Then take 1 tablet (5 mg) by mouth twice daily lisinopril (ZESTRIL) 40 mg tablet Take 1 tablet by mouth once daily. hydroCHLOROthiazide 25 mg tablet Take 1 tablet by mouth once daily. gabapentin (NEURONTIN) 300 mg capsule Take 300 mg by mouth daily at bedtime. atorvastatin (LIPITOR) 40 mg tablet Take 1 tablet by mouth once daily. levothyroxine (SYNTHROID) 125 mcg tablet TAKE 1 TABLET BY MOUTH EVERY DAY ON AN EMPTY STOMACH FOR THYROID amoxicillin (POLYMOX, AMOXIL) 500 mg capsule Take four capsules one hour before dental procedure. (Patient not taking: Reported on 12/19/2023) CPAP AutoPAP [id number]. Mask per preference, tubing, filters, humidity. Lifetime Supplies. Dx: G47.33. Fax 30 day compliance report to [phone]. CPAP Please provide mask fitting. Pt with subjective and some degree objective leaks. Prefers nasaltype mask. Thank you. DME = [employer] acetaminophen [...] Social History Tobacco Use Smoking status: Never Passive exposure: Past Smokeless tobacco: Never Vaping Use Vaping status: Never Used Substance Use Topics Alcohol use: No Drug use: No REVIEW OF SYSTEMS All other reviewed and negative other than HPI. OBJECTIVE: BP 138/84 Pulse 60 Resp 18 Wt 132.2 kg (291 lb 7.2 oz) SpO2 95% BMI 39.53 kg/m . Vital signs reviewed by this provider. APPEARANCE Well appearing, alert, in no acute distress, well-hydrated, well nourished. EYES conjunctiva and sclera normal. NECK: FROM. Reports discomfort with neck flexion, rotation and lateral bending. Negative Spurling SKIN Skin color, texture, turgor normal, no suspicious rashes or lesions to exposed skin UPPER BACK. No obvious deformity, skin rashes swelling or erythema.Point tenderness upper scapula LEGS: right lower leg remains more swollen than right. Moises complexion without excessive warmth, pain or red streaking LEFT SHOULDER: No obvious deformity, erythema, rashes, or ecchymosis. No TTP. FROM. Reports some discomfort to upper scapula with neck flexion, neck rotation and lateral bending. Negative Reese, NEER and drop arm tests Depression Screening Never done Anxiety Screening Never done BP Controlled (<130/80) due on 07/30/2021 Advance Directive Discussion Never done LDL Cholesterol due on 11/03/2023 Influenza Vaccine(1) due on 12/31/2023 Covid-19 Vaccine( season) due on 12/31/2023 Serum Creatinine due on 10/26/2024 Hemoglobin/Hematocrit due on 01/18/2025 Annual PCP Team Chronic Disease Visit due on 02/13/2025 Diabetes Screening due on 10/26/2026 DTaP,Tdap,Td Vaccine(3 - Td or Tdap) due on 07/31/2029 RSV Vaccine Completed Shingrix Vaccine Completed Pneumococcal Vaccine: 65+ Completed Colorectal Cancer Screening Discontinued ASSESSMENT/PLAN: 1. Upper back pain - ICD9: 724.5, ICD10: M54.9 (primary diagnosis) - likely muscular, possible referred from neck - no red flag symptoms or exam findings - red flag symptoms discussed, verbalizes understanding - Ice for localized tenderness - Warm moist heat for 20 min three times a day - Muscle relaxant- see orders - Patient given instructions use of medications as ordered, intermittent rest, back care exercise program, improved posture, proper lifting techniques, intermittent use of heat, and avoiding sleepingon a heating pad - TIZANIDINE 2 MG TABLET- discussed with patient medication can cause drowsiness so should not drive or operate heavy machinery while taking, verbalizes understanding - Follow up in PRN or sooner if symptoms persist or worsen 2. Immunization due - ICD9: V05.9, ICD10: Z23 - [employer] COVID-19 VACCINE AGE 12+ YR (COMIRNATY) - INFLUENZA VACCINE, PRSV FREE, AGE 65+ YR, HIGH DOSE, TRIVALENT (FLUZONE HIGH-DOSE) - RSV PRINTED PHARMACY INSTRUCTIONS 3. Right leg swelling - ICD9: 729.81, ICD10: M79.89 - DVT already ruled out - possibly lymph edema or related to knee injury - recommend compression hose and elevation - declined referral to vascular Marilia PylelogSELENE stuart.SUPERVISOR REMELT Prescription instructions reviewed with patient as applicable. Patient advised if symptoms do not improve or if symptoms worsen sooner, to contact their primary care physician. Potential red flag symptoms discussed with the patient. Reviewed appropriate action plan to take if red flag symptoms occur. Patient agreeable to treatment plan. Medical Decision Making: Problems: Low: Stable chronic illness Moderate: New problem with uncertain prognosis Risk: Moderate: Drug management and Moderate risk from testing/treatment Medical Decision Making Level: 4 - Moderate documented in this encounterC[facility] Telephone encounter Note * Telephone Encounter - Sissy Abbott LPN - 02/08/2024 9:58 AM EDT Pt calling for an appt to hillary right lower leg cellulitis. Pt states area has improved, only has slight redness & he would like it recked. Pt reports pain is gone. Pt requesting appt with Administrative Manager Podlogar. 1st avial with her is 02/14/24, pt accepted appt. Sooner appt offered with a different provider, pt declined. Pt instructed if area on leg starts to get worse, more red, painful etc to call for a sooner appt, pt voiced understanding. Pt also requesting flu & covid vaccine at same appt. Sissy Abbott LPN [facility]10-10-2024 Miscellaneous Notes* Telephone Encounter - Sissy Abbott LPN - 02/08/2024 9:58 AM EDT Pt calling for an appt to hillary right lower leg cellulitis. Pt states area has improved, only has slight redness & he would like it recked. Pt reports pain is gone. Pt requesting appt with Administrative Manager Podlognarciso. 1st avial with her is 02/14/24, pt accepted appt. Sooner appt offered with a different provider, pt declined. Pt instructed if area on leg starts to get worse, more red, painful etc to call for a sooner appt, pt voiced understanding. Pt also requesting flu & covid vaccine at same appt. Sissy Abbott LPN documented in this encounterC[facility]09-30-2024 NoteHNO ID: [id number] Author: MARILIA OROZCO APRN.SUPERVISOR REMELT Service: ? Author Type: Nurse Practitioner Type: Progress Notes Filed: 01/29/2024 12:28 Note Text: 01/29/2024 Patient presents with: Follow Up: Cellulitis/pain to right leg SUBJECTIVE: This is a 78 year old that is here today for Above Complaints. Seen for right lower leg cellulitis. Was taking Keflex and Doxycyline but reports had some burning and slight fever of 99. Given dose of Vancomycin IV and Doxycyline switched to Bactrim. Started the Bactrim Monday and is tolerating without side effects. Denies fevers, chills, increasing redness, warmth or swelling Completed MRI for right knee pain. See results below. Pain some better in knee. Walking without any assistance. IMPRESSION: MEDIAL MENISCUS TEAR WITH A COMPONENT DISPLACED/EXTRUDED TOWARDS THE INFEROMEDIAL GUTTER. PROMINENT PREPATELLAR BURSITIS. MILD OSTEOARTHRITIS. Voltage Regulator Assembler: WILNER Transcribe Date/Time: Jan 26 2024 1:16P Dictated by : CHELSEA CASTILLO MD This examination was interpreted and the report reviewed and electronically signed by: CHELSEA CASTILLO MD on Jan 27 2024 3:42PM EST Results-Findings * * *Final Report* * * DATE OF EXAM: Jan 26 2024 11:52AM M2M 0213 - MRI KNEE WO IVCON RT / PROCEDURE REASON: Acute pain of right knee * * * * Physician Interpretation * * * * EXAMINATION: MRI RIGHT KNEE WITHOUT CONTRAST CLINICAL HISTORY: Acute right knee pain TECHNIQUE: Routine non-contrast MRI of the knee MQ: [id number]_[id number] COMPARISON: 01/18/2024 radiographs RESULT: MENISCI: Medial Meniscus: Tear in the body with a component displaced/extruded into the inferomedial gutter. Lateral Meniscus: Degenerative changes without a tear in the posterior horn and body LIGAMENTS: ACL: Intact PCL: Intact MCL: Intact LCL Complex: Intact CARTILAGE: Medial Femoral Condyle: Moderate sized area(s) of predominantly low grade (less than 50% thickness) cartilage loss and or fissuring with smaller area(s) of high grade (greater than 50% thickness) cartilage loss and or fissuring Medial Tibial Plateau: Small area(s) of full thickness cartilage loss and or fissuring Lateral Femoral Condyle: Large area(s) of low grade (less than 50% thickness) partial thickness cartilage loss and or fissuring Lateral Tibial Plateau: Normal Patella: Moderate sized area(s) of predominantly high grade (greater than 50% thickness) cartilage loss and or fissuring with smaller area(s) of full thickness cartilage loss and or fissuring Trochlea: Normal TENDONS: Prominent prepatellar bursitis with a lobulated complex fluid anterior to the patellar tendon with synovial proliferation within. Generalized edema about the knee. The distal quadriceps and patellar tendons are intact. The popliteus tendon is intact. BONES AND MARROW: No evidence of fracture or bone marrow replacing process. MUSCLES: Muscle bulk and signal intensity are normal. JOINT FLUID AND SYNOVIUM: No joint effusion. No synovitis. Miniscule mostly collapsed Gutierrez's cyst. OTHER: No other significant abnormality identified. Localizer images: Unremarkable. ER record reviewed PAST MEDICAL HISTORY Diagnosis Date Angina at [...] of skin of nose Dr. Chowdary in [place] Stage 3a chronic kidney disease (HCC) Venous insufficiency ALLERGIES Norvasc [Amlodipine Besylate], Venom-Wasp, and Zithromax [Azithromycin] MEDICATIONS Current Outpatient Medications Medication Sig sulfamethoxazole-trimethoprim (BACTRIM DS) 800-160 mg per tablet Take 1 tablet by mouth every 12 hours. doxycycline (VIBRA-TABS) 100 mg tablet Take 1 tablet by mouth two times a day for 10 days. (Patient not taking: Reported on 01/29/2024) cephALEXin (KEFLEX) 500 mg capsule Take 1 capsule by mouth three times a day. metoprolol succinate ER (TOPROL XL) 50 mg 24 hr tablet Take 1 tablet by mouth once daily. ammonium lactate (LAC-HYDRIN) 12 % cream Apply to affected area as needed. Apply on thick skin apixaban (ELIQUIS) 5 mg tab(s) Take 1 tablet by mouth two times a day. apixaban (ELIQUIS) 5 mg tab(s) Take 2 tablets (10 mg) by mouth twice daily for 6 days. T (more content not included)...[facility]09-30-2024 History of Present illness Narrative* PodlogMarilia stuart APRN.SUPERVISOR REMELT - 01/29/2024 11:09 AM EDT 01/29/2024 Patient presents with: Follow Up: Cellulitis/pain to right leg SUBJECTIVE: This is a 78 year old that is here today for Above Complaints. Seen for right lower leg cellulitis. Was taking Keflex and Doxycyline but reports had some burning and slight fever of 99. Given dose of Vancomycin IV and Doxycyline switched to Bactrim. Started the Bactrim Monday and is tolerating without side effects. Denies fevers, chills, increasing redness, warmth or swelling Completed MRI for right knee pain. See results below. Pain some better in knee. Walking without anyassistance. IMPRESSION: MEDIAL MENISCUS TEAR WITH A COMPONENT DISPLACED/EXTRUDED TOWARDS THE INFEROMEDIAL GUTTER. PROMINENT PREPATELLAR BURSITIS. MILD OSTEOARTHRITIS. Voltage Regulator Assembler: WILNER Transcribe Date/Time: Jan 26 2024 1:16P Dictated by : CHELSEA CASTILLO MD This examination was interpreted and the report reviewed and electronically signed by: CHELSEA CASTILLO MD on Jan 27 2024 3:42PM EST Results-Findings * * *Final Report* * * DATE OF EXAM: Jan 26 2024 11:52AM M2M 0213 - MRI KNEE WO IVCON RT / PROCEDURE REASON: Acute pain of right knee * * * * Physician Interpretation * * * * EXAMINATION: MRI RIGHT KNEE WITHOUT CONTRAST CLINICAL HISTORY: Acute right knee pain TECHNIQUE: Routine non-contrast MRI of the knee MQ: MRK_2B COMPARISON: 01/18/2024 radiographs RESULT: MENISCI: Medial Meniscus: Tear in the body with a component displaced/extruded into the inferomedial gutter. Lateral Meniscus: Degenerative changes without a tear in the posterior horn and body LIGAMENTS: ACL: Intact PCL: Intact MCL: Intact LCL Complex: Intact CARTILAGE: Medial Femoral Condyle: Moderate sized area(s) of predominantly low grade (less than 50% thickness) cartilage loss and or fissuring with smaller area(s) of high grade (greater than 50% thickness) cartilage loss and or fissuring Medial Tibial Plateau: Small area(s) of full thickness cartilage loss and or fissuring Lateral Femoral Condyle: Large area(s) of low grade (less than 50% thickness) partial thickness cartilage loss and or fissuring Lateral Tibial Plateau: Normal Patella: Moderate sized area(s) of predominantly high grade (greater than 50% thickness) cartilage loss and or fissuring with smaller area(s) of full thickness cartilage loss and or fissuring Trochlea: Normal TENDONS: Prominent prepatellar bursitis with a lobulated complex fluid anterior to the patellar tendon with synovial proliferation within. Generalized edema about the knee. The distal quadriceps and patellar tendons are intact. The popliteus tendon is intact. BONES AND MARROW: No evidence of fracture or bone marrow replacing process. MUSCLES: Muscle bulk and signal intensity are normal. JOINT FLUID AND SYNOVIUM: No joint effusion. No synovitis. Miniscule mostly collapsed Gutierrez's cyst. OTHER: No other significant abnormality identified. Localizer images: Unremarkable. 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 Chowdary in [place] Stage 3a chronic kidney disease (HCC) Venous insufficiency ALLERGIES Norvasc [Amlodipine Besylate], Venom-Wasp, and Zithromax [Azithromycin] MEDICATIONS Current Outpatient Medications Medication Sig sulfamethoxazole-trimethoprim (BACTRIM DS) 800-160 mg per tablet Take 1 tablet by mouth every 12 hours. doxycycline (VIBRA-TABS) 100 mg tablet Take 1 tablet by mouth two times a day for 10 days. (Patientnot taking: Reported on 01/29/2024) cephALEXin (KEFLEX) 500 mg capsule Take 1 capsule by mouth three times a day. metoprolol succinate ER (TOPROL XL) 50 mg 24 hr tablet Take 1 tablet by mouth once daily. ammonium lactate (LAC-HYDRIN) 12 % cream Apply to affected area as needed. Apply on thick skin apixaban (ELIQUIS) 5 mg tab(s) Take 1 tablet by mouth two times a day. apixaban (ELIQUIS) 5 mg tab(s) Take 2 tablets (10 mg) by mouth twice daily for 6 days. Then take 1 tablet (5 mg) by mouth twice daily lisinopril (ZESTRIL) 40 mg tablet Take 1 tablet by mouth once daily. hydroCHLOROthiazide 25 mg tablet Take 1 tablet by mouth once daily. gabapentin (NEURONTIN) 300 mg capsule Take 300 mg by mouth daily at bedtime. atorvastatin (LIPITOR) 40 mg tablet Take 1 tablet by mouth once daily. levothyroxine (SYNTHROID) 125 mcg tablet TAKE 1 TABLET BY MOUTH EVERY DAY ON AN EMPTY STOMACH FOR THYROID amoxicillin (POLYMOX, AMOXIL) 500 mg capsule Take four capsules one hour before dental procedure. (Patient not taking: Reported on 12/19/2023) CPAP AutoPAP [id number]. Mask per preference, tubing, filters, humidity. Lifetime Supplies. Dx: G47.33. Fax 30 day compliance report to [phone]. CPAP Please provide mask fitting. Pt with subjective and some degree objective leaks. Prefers nasaltype mask. Thank you. DME = [facility] acetaminophen [...] Social History Tobacco Use Smoking status: Never Passive exposure: Past Smokeless tobacco: Never Vaping Use Vaping status: Never Used Substance Use Topics Alcohol use: No Drug use: No REVIEW OF SYSTEMS All other reviewed and negative other than HPI. OBJECTIVE: BP 144/92 Pulse (!) 59 Temp 36.4 C (97.6 F) Resp 16 Wt 129.7 kg (285 lb 15 oz) SpO2 96% BMI 38.78 kg/m . Vital signs reviewed by this provider. APPEARANCE Well appearing, alert, in no acute distress, well-hydrated, well nourished. RIGHT LEG: Still with mild erythema without excessive warmth to RLE. Still with 2+ pitting edea BLEwith cap refill WNL. No red streaking Depression Screening Never done Anxiety Screening Never done BP Controlled (<130/80) due on 07/30/2021 Advance Directive Discussion Never done LDL Cholesterol due on 11/03/2023 Covid-19 Vaccine( season) due on 12/31/2023 Influenza Vaccine(1) due on 12/31/2023 Serum Creatinine due on 10/26/2024 Hemoglobin/Hematocrit due on 01/18/2025 Annual PCP Team Chronic Disease Visit due on 01/23/2025 Diabetes Screening due on 10/26/2026 DTaP,Tdap,Td Vaccine(3 - Td or Tdap) due on 07/31/2029 RSV Vaccine Completed Shingrix Vaccine Completed Pneumococcal Vaccine: 65+ Completed Colorectal Cancer Screening Discontinued ASSESSMENT/PLAN: 1. Cellulitis of right leg - ICD9: 682.6, ICD10: L03.115 (primary diagnosis) - Continue treatment with Trimethoprim-sulfamethozazole (Bactrim) - no red flag symptoms or exam findings - red flag symptoms discussed, verbalizes understanding - complete Bactrim, follow-up if fails to improve to ER with red flag symptoms - POTASSIUM- check 2. Tear of medial meniscus of right knee, current, unspecified tear type, initial encounter - ICD9:836.0, ICD10: S83.241A - discussed PT vs referral to PT- declines at this time - follow-up as needed 3. Right leg swelling - ICD9: 729.81, ICD10: M79.89 -may be from the trauma of fall and tear - would reocmmend he apply compression and elevate when siting - follow-up if fails to improve to ER with red flag symptoms Marilia Orozco APRN.SUPERVISOR [employer] Prescription instructions reviewed with patient as applicable. Patient advised if symptoms do not improve or if symptoms worsen sooner, to contact their primary care physician. Potential red flag symptoms discussed with the patient. Reviewed appropriate action plan to take if red flag symptoms occur. Patient agreeable to treatment plan. Medical Decision Making: Problems: Moderate: New problem with uncertain prognosis Data: Unique test(s) ordered: 1 Risk: Moderate: Moderate risk from testing/treatment Medical Decision Making Level: 4 - Moderate [facility] History of Present illness Narrative* Angi Hawkins, fuel system maintenance worker - 01/26/2024 11:30 AM EDT Radiology Service Progress Note PATIENT NAME: Fran Parekh DATE OF SERVICE: January 26, 2024 TIME: 11:39 AM PATIENT IDENTITY VERIFICATION COMPLETED USING TWO (2) IDENTIFIERS: Name and Date of confirmedby patient verbally. FALL SCREENING: Has the patient had 2 falls in the last year or 1 fall with injury or currently using an Ambulatory Assistive Device (Walker, Cane, Wheelchair, Crutches, etc.)? No PATIENT GENDER DATA: Male PATIENT RELEVANT IMPLANT DATA REVIEWED: Yes PATIENT PRESENTS WITH AN IMPLANTABLE OR ATTACHED LITERACY COACH: No RADIOLOGY DEPARTMENT: MR; Exam(s) Completed: Lower MSK: Knee, right PERIPHERAL IV DATA: Not applicable SIGNED BY: DEEPALI Page January 26, 2024 11:39 AM documented in this encounterC[facility]24 NoteHNO ID: [id number] Author: ANGI HAWKINS MRI Tech Service: Radiology Author Type: Technologist Type: Progress Notes Filed: 01/26/2024 11:39 Note Text: Radiology Service Progress Note PATIENT NAME: Fran Parekh DATE OF SERVICE: January 26, 2024 TIME: 11:39 AM PATIENT IDENTITY VERIFICATION COMPLETED USING TWO (2) IDENTIFIERS: Name and Date of confirmed by patient verbally. FALL SCREENING: Has the patient had 2 falls in the last year or 1 fall with injury or currently using an Ambulatory Assistive Device (Walker, Cane, Wheelchair, Crutches, etc.)? No PATIENT GENDER DATA: Male PATIENT RELEVANT IMPLANT DATA REVIEWED: Yes PATIENT PRESENTS WITH AN IMPLANTABLE OR ATTACHED LITERACY COACH: No RADIOLOGY DEPARTMENT: MR; Exam(s) Completed: Lower MSK: Knee, right PERIPHERAL IV DATA: Not applicable SIGNED BY: DEEPALI Page January 26, 2024 11:39 [facility]09-25-2024 NoteHNO ID: [id number] Author: MARILIA OROZCO APRN.SUPERVISOR [employer]T Service: ? Author Type: Nurse Practitioner Type: Progress Notes Filed: 01/24/2024 13:38 Note Text: 01/24/2024 Patient presents with: Follow Up: Cellulitis SUBJECTIVE: This is a 78 year old that is here today for Above Complaints. Started on Keflex on 01/19/2024 for redness and swelling of right leg after a fall. US negative for DVT. Followed back up on 01/22/2024 and Doxycyline added for MRSA coverage. Completed Keflex and is on day 3 Doxycyline. Still with swelling and redness. Denies fevers, chills, increasing redness, warmth or open areas. Concerned about his knee pain as well which started with fall over a week ago. Reports he tripped and fell directly on to knee. Had xray completed 01/17 which showed osteoarthrosis. Pain located in the front and medial aspect descried as aching and sharp at times. Aggravated going up the stairs and getting in/out of car. Takes Tylenol for pain with mild relief. No prior hx of injuries or surgeries PAST MEDICAL HISTORY Diagnosis Date Angina at [...] of skin of nose Dr. Chowdary in [place] Stage 3a chronic kidney disease (HCC) Venous insufficiency ALLERGIES Norvasc [Amlodipine Besylate], Venom-Wasp, and Zithromax [Azithromycin] MEDICATIONS Current Outpatient Medications Medication Sig doxycycline (VIBRA-TABS) 100 mg tablet Take 1 tablet by mouth two times a day for 10 days. cephALEXin (KEFLEX) 500 mg capsule Take 1 capsule by mouth three times a day. metoprolol succinate ER (TOPROL XL) 50 mg 24 hr tablet Take 1 tablet by mouth once daily. ammonium lactate (LAC-HYDRIN) 12 % cream Apply to affected area as needed. Apply on thick skin apixaban (ELIQUIS) 5 mg tab(s) Take 1 tablet by mouth two times a day. apixaban (ELIQUIS) 5 mg tab(s) Take 2 tablets (10 mg) by mouth twice daily for 6 days. Then take 1 tablet (5 mg) by mouth twice daily lisinopril (ZESTRIL) 40 mg tablet Take 1 tablet by mouth once daily. hydroCHLOROthiazide 25 mg tablet Take 1 tablet by mouth once daily. gabapentin (NEURONTIN) 300 mg capsule Take 300 mg by mouth daily at bedtime. atorvastatin (LIPITOR) 40 mg tablet Take 1 tablet by mouth once daily. levothyroxine (SYNTHROID) 125 mcg tablet TAKE 1 TABLET BY MOUTH EVERY DAY ON AN EMPTY STOMACH FOR THYROID amoxicillin (POLYMOX, AMOXIL) 500 mg capsule Take four capsules one hour before dental procedure. (Patient not taking: Reported on 12/19/2023) CPAP AutoPAP [id number]. Mask per preference, tubing, filters, humidity. Lifetime Supplies. Dx: G47.33. Fax 30 day compliance report to [phone]. CPAP Please provide mask fitting. Pt with [...] Social History Tobacco Use Smoking status: Never Passive exposure: Past Smokeless tobacco: Never Vaping Use Vaping status: Never Used Substance Use Topics Alcohol use: No Drug use: No REVIEW OF SYSTEMS All other reviewed and negative other than HPI. OBJECTIVE: BP 134/90 Pulse 81 Temp 36.8 ?C (98.2 ?F) Resp 16 Wt 130.1 kg (286 lb 13.1 oz) SpO2 97% BMI 38.90 kg/m? . Vital signs reviewed by this provider. APPEARANCE Well appearing, alert, in no acute distress, well-hydrated, well nourished. RIGHT LEG. 2+ edema from foot to below knee. Right knee more swollen then left. Still with erythema to lower aspect without excessive warmth or open areas. Faint ecchymosis over Patella. Flexion difficult due to pain. Able to fully extend. No crepitus. Negative anterior/posterior drawer test. Signi (more content not included)...[facility]09-[facility] History of Present illness Narrative* Podlogar, SELENE Capellan.SUPERVISOR [employer]ELT - 01/24/2024 12:05 PM EDT 01/24/2024 Patient presents with: Follow Up: Cellulitis SUBJECTIVE: This is a 78 year old that is here today for Above Complaints. Started on Keflex on 01/19/2024 for redness and swelling of right leg after a fall. US negative forDVT. Followed back up on 01/22/2024 and Doxycyline added for MRSA coverage. Completed Keflex and lew day 3 Doxycyline. Still with swelling and redness. Denies fevers, chills, increasing redness, warmth or open areas. Concerned about his knee pain as well which started with fall over a week ago. Reports he tripped and fell directly on to knee. Had xray completed 01/17 which showed osteoarthrosis. Pain located in the front and medial aspect descried as aching and sharp at times. Aggravated going up the stairs andgetting in/out of car. Takes Tylenol for pain with mild relief. No prior hx of injuries or surgeries PAST MEDICAL HISTORY Diagnosis Date Angina at [...] of skin of nose Dr. Chowdary in [place] Stage 3a chronic kidney disease (HCC) Venous insufficiency ALLERGIES Norvasc [Amlodipine Besylate], Venom-Wasp, and Zithromax [Azithromycin] MEDICATIONS Current Outpatient Medications Medication Sig doxycycline (VIBRA-TABS) 100 mg tablet Take 1 tablet by mouth two times a day for 10 days. cephALEXin (KEFLEX) 500 mg capsule Take 1 capsule by mouth three times a day. metoprolol succinate ER (TOPROL XL) 50 mg 24 hr tablet Take 1 tablet by mouth once daily. ammonium lactate (LAC-HYDRIN) 12 % cream Apply to affected area as needed. Apply on thick skin apixaban (ELIQUIS) 5 mg tab(s) Take 1 tablet by mouth two times a day. apixaban (ELIQUIS) 5 mg tab(s) Take 2 tablets (10 mg) by mouth twice daily for 6 days. Then take 1 tablet (5 mg) by mouth twice daily lisinopril (ZESTRIL) 40 mg tablet Take 1 tablet by mouth once daily. hydroCHLOROthiazide 25 mg tablet Take 1 tablet by mouth once daily. gabapentin (NEURONTIN) 300 mg capsule Take 300 mg by mouth daily at bedtime. atorvastatin (LIPITOR) 40 mg tablet Take 1 tablet by mouth once daily. levothyroxine (SYNTHROID) 125 mcg tablet TAKE 1 TABLET BY MOUTH EVERY DAY ON AN EMPTY STOMACH FOR THYROID amoxicillin (POLYMOX, AMOXIL) 500 mg capsule Take four capsules one hour before dental procedure. (Patient not taking: Reported on 12/19/2023) CPAP AutoPAP [id number]. Mask per preference, tubing, filters, humidity. Lifetime Supplies. Dx: G47.33. Fax 30 day compliance report to [phone]. CPAP Please provide mask fitting. Pt with subjective and some degree objective leaks. Prefers nasaltype mask. Thank you. DME = [facility] acetaminophen [...] Social History Tobacco Use Smoking status: Never Passive exposure: Past Smokeless tobacco: Never Vaping Use Vaping status: Never Used Substance Use Topics Alcohol use: No Drug use: No REVIEW OF SYSTEMS All other reviewed and negative other than HPI. OBJECTIVE: BP 134/90 Pulse 81 Temp 36.8 C (98.2 F) Resp 16 Wt 130.1 kg (286 lb 13.1 oz) SpO2 97% BMI 38.90 kg/m . Vital signs reviewed by this provider. APPEARANCE Well appearing, alert, in no acute distress, well-hydrated, well nourished. RIGHT LEG. 2+ edema from foot to below knee. Right knee more swollen then left. Still with erythemato lower aspect without excessive warmth or open areas. Faint ecchymosis over Patella. Flexion difficult due to pain. Able to fully extend. No crepitus. Negative anterior/posterior drawer test. Significant tenderness along medial aspect. No clicking or popping with Haroldo test Depression Screening Never done Anxiety Screening Never done Advance Directive Discussion Never done LDL Cholesterol due on 11/03/2023 Covid-19 Vaccine( season) due on 12/31/2023 Influenza Vaccine(1) due on 12/31/2023 Serum Creatinine due on 10/26/2024 Hemoglobin/Hematocrit due on 01/18/2025 Annual PCP Team Chronic Disease Visit due on 01/21/2025 BP Controlled (<130/80) due on 01/21/2025 Diabetes Screening due on 10/26/2026 DTaP,Tdap,Td Vaccine(3 - Td or Tdap) due on 07/31/2029 RSV Vaccine Completed Shingrix Vaccine Completed Pneumococcal Vaccine: 65+ Completed Colorectal Cancer Screening Discontinued ASSESSMENT/PLAN: 1. Pain and swelling of right lower leg - ICD9: 729.5, 729.81, ICD10: M79.661, M79.89 (primary diagnosis) - continue Doxycyline - no red flag symptoms or exam findings - red flag symptoms discussed, verbalizes understanding - would recommend he apply abi from above toes to below knee however patient unable to apply himself. Discussed PT for swelling- declines at this time - follow-up Monday for reevaluation, to ER with red flag symptoms 2. Acute pain of right knee - ICD9: 719.46, ICD10: M25.561 - consider meniscal tear - no red flag symptoms or exam findings - red flag symptoms discussed, verbalizes understanding - declines PT - MRI KNEE WO IVCON RIGHT Marilia Podlogar, RECORD TESTER.SUPERVISOR [employer]ELT Prescription instructions reviewed with patient as applicable. Patient advised if symptoms do not improve or if symptoms worsen sooner, to contact their primary care physician. Potential red flag symptoms discussed with the patient. Reviewed appropriate action plan to take if red flag symptoms occur. Patient agreeable to treatment plan. Medical Decision Making: Problems: Moderate: New problem with uncertain prognosis Data: Unique test(s) ordered: 1 Risk: Moderate: Moderate risk from testing/treatment Medical Decision Making Level: 4 - Moderate documented in [facility] Telephone encounter Note * Telephone Encounter - Eunice Bruce LPN - 01/22/2024 1:30 PM EDT Patient telephoned and notified. Eunice Bruce LPN [facility]09-23-[facility]24 Miscellaneous Notes* Telephone Encounter - Eunice Bruce LPN - 01/22/2024 1:30 PM EDT Patient telephoned and notified. Eunice Bruce LPN * Telephone Encounter - Cassidy Cantu MA - 01/22/2024 10:27 AM EDT ----- Message from Agnes Diaz MD sent at 01/22/2024 8:34 AM EDT ----- US negative for superficial or deep clot. documented in this encounterC[facility]-23-2024 NoteHNO ID: [id number] Author: AGNES DIAZ MD Service: ? Author Type: Physician Type: Progress Notes Filed: 01/23/2024 14:52 Note Text: Chief Complaint Patient presents with: Follow Up: Right leg follow up HPI Fran Parekh is a 78 year old male who presents here today for Above Complaints.. Patient evaluated 3 days ago for right leg pain, redness and swelling after a fall 1 week ago and was started on Keflex TID for cellulitis and had US to rule out DVT which was negative for deep and superficial clot. CBC unremarkable. Since last OV, patient has been compliant with the abx and has had improvement in the redness, but not the swelling. Taking tylenol for pain in his knee and landry which does take the edge off. Keeping leg elevated when resting. Not using crutches or cane for ambulation. Denies fever/chills, purulent discharge, nausea, vomiting, streaking, increased swelling. Past medical history, appointments, medications, allergies reviewed. Previous Medical History PAST MEDICAL HISTORY Diagnosis Date Angina at [...] of skin of nose Dr. Chowdary in [place] Stage 3a chronic kidney disease (HCC) Venous insufficiency Previous Surgical History PAST SURGICAL HISTORY Procedure Laterality Date ARTHRP ACETBLR/PROX FEM PROSTC AGRFT/ALGRFT Right 06/03/2019 Hip replacement, total COLONOSCOPY FLX DX W/COLLJ SPEC WHEN PFRMD 04/21/11 Repeat 10 [id number] LASER GREENLIGHT prostate, [place] NEUROPLASTY AND/TRANSPOS MEDIAN NRV CARPAL TUNNE Left 01/17/2020 Left carpal tunnel release NEUROPLASTY AND/TRANSPOS MEDIAN NRV CARPAL TUNNE Right 03/04/2020 Right carpal tunnel release RPR UMBILICAL HRNA 5 YRS/> REDUCIBLE TONSILLECTOMY PRIMARY/SECONDARY Tonsillectomy Family History FAMILY HISTORY Problem Relation Age of Onset Heart Mother other (Myocardial infarction) Mother 81 Headache Father MIGRAINES other (lung cancer) Father DECEACED AGE 86 YR LUNG CA No Known Problems Sister No Known Problems Sister Headache Sister MIGRAINES other (Myocardial infarction) Maternal Grandfather 64 other (Myocardial infarction) Maternal Uncle 74 Patient Allergies ALLERGIES Allergen Reactions Norvasc [Amlodipine* Swelling pedal edema Venom-Wasp Swelling Zithromax [Azithrom* Itching Current Medications Current Outpatient Medications on File Prior to Visit Medication Sig cephALEXin (KEFLEX) 500 mg capsule Take 1 capsule by mouth three times a day. metoprolol succinate ER (TOPROL XL) 50 mg 24 hr tablet Take 1 tablet by mouth once daily. ammonium lactate (LAC-HYDRIN) 12 % cream Apply to affected area as needed. Apply on thick skin apixaban (ELIQUIS) 5 mg tab(s) Take 1 tablet by mouth two times a day. apixaban (ELIQUIS) 5 mg tab(s) Take 2 tablets (10 mg) by mouth twice daily for 6 days. Then take 1 tablet (5 mg) by mouth twice daily lisinopril (ZESTRIL) 40 mg tablet Take 1 tablet by mouth once daily. hydroCHLOROthiazide 25 mg tablet Take 1 tablet by mouth once daily. gabapentin (NEURONTIN) 300 mg capsule Take 300 mg by mouth daily at bedtime. atorvastatin (LIPITOR) 40 mg tablet Take 1 tablet by mouth once daily. levothyroxine (SYNTHROID) 125 mcg tablet TAKE 1 TABLET BY MOUTH EVERY DAY ON AN EMPTY STOMACH FOR THYROID CPAP AutoPAP [id number]. Mask per preference, tubing, filters, humidity. Lifetime Supplies. Dx: G47.33. Fax 30 day compliance report to [phone]. CPAP Please provide mask fitting. Pt with subjective and some degree objective leaks. Prefers nasal type mask. Thank you. DME = [facility] acetaminophen 650 mg CR tablet Take 650 mg by mouth as needed. aspirin, enteric coated (ASPIRIN, ENTERIC COATED) 81 mg EC tablet Take 81 mg by mouth once daily. MULTIVITAMIN,TX-MINERALS ORAL TAB Take one(1) tablet daily. amoxicillin (POLYMOX, AMOXIL) 500 mg capsule Take four capsules one hour before dental procedure. (Patient not taking: Reported on 12/19/2023) Current Facility-Administered Medications on File Prior to Visit Medication perflutren lipid microspheres 1.3 mL in NaCl (PF) 0.9% 10 mL injection (DEFINITY) sodium chloride 0.9 % (flush) 10 mL (BD POSIFLUSH) (more content not included)...[facility]09-[facility] History of Present illness Narrative* Agnes Diaz MD - 01/22/2024 11:37 AM EDT Chief Complaint Patient presents with: Follow Up: Right leg follow up HPI Fran Parekh is a 78 year old male who presents here today for Above Complaints.. Patient evaluated 3 days ago for right leg pain, redness and swelling after a fall 1 week ago and was started on Keflex TID for cellulitis and had US to rule out DVT which was negative for deep and superficial clot. CBC unremarkable. Since last OV, patient has been compliant with the abx and has had improvement in the redness, but not the swelling. Taking tylenol for pain in his knee and landry which does take the edge off. Keepingleg elevated when resting. Not using crutches or cane for ambulation. Denies fever/chills, purulentdischarge, nausea, vomiting, streaking, increased swelling. Past medical history, appointments, medications, allergies reviewed. Previous Medical History PAST MEDICAL HISTORY Diagnosis Date Angina at [...] of skin of nose Dr. Chowdary in [place] Stage 3a chronic kidney disease (HCC) Venous insufficiency Previous Surgical History PAST SURGICAL HISTORY Procedure Laterality Date ARTHRP ACETBLR/PROX FEM PROSTC AGRFT/ALGRFT Right 06/03/2019 Hip replacement, total COLONOSCOPY FLX DX W/COLLJ SPEC WHEN PFRMD 04/21/11 Repeat 10 LASER GREENLIGHT prostate, [place] NEUROPLASTY &/TRANSPOS MEDIAN NRV CARPAL TUNNE Left 01/17/2020 Left carpal tunnel release NEUROPLASTY &/TRANSPOS MEDIAN NRV CARPAL TUNNE Right 03/04/2020 Right carpal tunnel release RPR UMBILICAL HRNA 5 YRS/> REDUCIBLE TONSILLECTOMY PRIMARY/SECONDARY <AGE 12 Tonsillectomy Family History FAMILY HISTORY Problem Relation Age of Onset Heart Mother other (Myocardial infarction) Mother 81 Headache Father MIGRAINES other (lung cancer) Father DECEACED AGE 86 YR LUNG CA No Known Problems Sister No Known Problems Sister Headache Sister MIGRAINES other (Myocardial infarction) Maternal Grandfather 64 other (Myocardial infarction) Maternal Uncle 74 Patient Allergies ALLERGIES Allergen Reactions Norvasc [Amlodipine* Swelling pedal edema Venom-Wasp Swelling Zithromax [Azithrom* Itching Current Medications Current Outpatient Medications on File Prior to Visit Medication Sig cephALEXin (KEFLEX) 500 mg capsule Take 1 capsule by mouth three times a day. metoprolol succinate ER (TOPROL XL) 50 mg 24 hr tablet Take 1 tablet by mouth once daily. ammonium lactate (LAC-HYDRIN) 12 % cream Apply to affected area as needed. Apply on thick skin apixaban (ELIQUIS) 5 mg tab(s) Take 1 tablet by mouth two times a day. apixaban (ELIQUIS) 5 mg tab(s) Take 2 tablets (10 mg) by mouth twice daily for 6 days. Then take 1 tablet (5 mg) by mouth twice daily lisinopril (ZESTRIL) 40 mg tablet Take 1 tablet by mouth once daily. hydroCHLOROthiazide 25 mg tablet Take 1 tablet by mouth once daily. gabapentin (NEURONTIN) 300 mg capsule Take 300 mg by mouth daily at bedtime. atorvastatin (LIPITOR) 40 mg tablet Take 1 tablet by mouth once daily. levothyroxine (SYNTHROID) 125 mcg tablet TAKE 1 TABLET BY MOUTH EVERY DAY ON AN EMPTY STOMACH FOR THYROID CPAP AutoPAP [id number]. Mask per preference, tubing, filters, humidity. Lifetime Supplies. Dx: G47.33. Fax 30 day compliance report to [phone]. CPAP Please provide mask fitting. Pt with subjective and some degree objective leaks. Prefers nasaltype mask. Thank you. DME = [facility] acetaminophen 650 mg CR tablet Take 650 mg by mouth as needed. aspirin, enteric coated (ASPIRIN, ENTERIC COATED) 81 mg EC tablet Take 81 mg by mouth once daily. MULTIVITAMIN,TX-MINERALS ORAL TAB Take one(1) tablet daily. amoxicillin (POLYMOX, AMOXIL) 500 mg capsule Take four capsules one hour before dental procedure. (Patient not taking: Reported on 12/19/2023) Current Facility-Administered Medications on File Prior to Visit Medication perflutren lipid microspheres 1.3 mL in NaCl (PF) 0.9% 10 mL injection (DEFINITY) sodium chloride 0.9 % (flush) 10 mL (BD POSIFLUSH) Social History Social History Tobacco Use Smoking status: Never Passive exposure: Past Smokeless tobacco: Never Vaping Use Vaping status: Never Used Substance Use Topics Alcohol use: No Drug use: No Review of Symptoms REVIEW OF SYSTEMS See HPI EXAM: BP 124/72 Pulse 76 Temp 36.6 C (97.9 F) Resp 18 Wt 130.9 kg (288 lb 9.6 oz) SpO2 98% BMI 39.14 kg/m General Appearance: Well appearing, alert, in no acute distress, well-hydrated, well nourished.. Skin: faint erythema on right landry which extends from just below knee to ankle. Warm to touch. TTP.No induration, fluctuance or drainage. Extremities: Edema: 1-2+ pitting edema on right LE to knee. Health Maintenance List Depression Screening Never done Anxiety Screening Never done BP Controlled (<130/80) due on 07/30/2021 Advance Directive Discussion Never done LDL Cholesterol due on 11/03/2023 Covid-19 Vaccine( season) due on 12/31/2023 Influenza Vaccine(1) due on 12/31/2023 Serum Creatinine due on 10/26/2024 Annual PCP Team Chronic Disease Visit due on 01/18/2025 Hemoglobin/Hematocrit due on 01/18/2025 Diabetes Screening due on 10/26/2026 DTaP,Tdap,Td Vaccine(3 - Td or Tdap) due on 07/31/2029 RSV Vaccine Completed Shingrix Vaccine Completed Pneumococcal Vaccine: 65+ Completed Colorectal Cancer Screening Discontinued Data reviewed Latest Ref Rng 01/19/2024 WBC 3.70 - 11.00 k/uL 10.31 RBC 4.20 - 6.00 m/uL 4.57 Hemoglobin 13.0 - 17.0 g/dL 14.5 Hematocrit 39.0 - 51.0 % 44.2 MCV 80.0 - 100.0 fL 96.7 MCH 26.0 - 34.0 pg 31.7 MCHC 30.5 - 36.0 g/dL 32.8 RDW-CV 11.5 - 15.0 % 13.6 Platelet Count 150 - 400 k/uL 255 MPV 9.0 - 12.7 fL 10.2 Neut% % 65.8 Abs Neut (ANC) 1.45 - 7.50 k/uL 6.78 Lymph% % 21.6 Abs Lymph 1.00 - 4.00 k/uL 2.23 [place]% % 10.0 Abs [place] <0.87 k/uL 1.03 (H) Eosin% % 1.9 Abs Eosin <0.46 k/uL 0.20 Baso% % 0.4 Abs Baso <0.11 k/uL 0.04 Immature Gran % % 0.3 IMMATURE GRANS (ABS) <0.10 k/uL 0.03 NRBC /100 WBC 0.0 Absolute nRBC <0.01 k/uL <0.01 DTYPE Auto Legend: (H) High ASSESSMENT/PLAN: 1. Pain and swelling of right lower leg - ICD9: 729.5, 729.81, ICD10: M79.661, M79.89 (primary diagnosis) 2/2 cellulitis which has not changed much with addition of Keflex 3 days ago. Will add on doxycycline to cover for MRSA and recheck in 2-3 days. Red flags for re-assessment reviewed with patient in detail. - DOXYCYCLINE HYCLATE 100 MG TABLET 2. Cellulitis of skin - ICD9: 682.9, ICD10: L03.90 - Begin treatment with doxycycline - No lymphangetic streaking, this was defined for patient to watch for and to seek medical care immediately if appears - Follow up for recheck in two days - DOXYCYCLINE HYCLATE 100 MG TABLET Agnes Diaz MD [place] [id number] Telephone encounter Note * Telephone Encounter - Cassidy Cantu MA - 01/22/2024 10:27 AM EDT ----- Message from Agnes Diaz MD sent at 01/22/2024 8:34 AM EDT ----- US negative for superficial or deep clot. [facility]09-20-2024 NoteHNO ID: [id number] Author: MARILIA OROZCO APRN.SUPERVISOR REMELT Service: ? Author Type: Nurse Practitioner Type: Progress Notes Filed: 01/29/2024 08:11 Note Text: 01/19/2024 Patient presents with: Fall: X1 week ago, hurt right knee and has some swelling in the right lower landry SUBJECTIVE: This is a 78 year old that is here today for Above Complaints. ONSET: one week after a fall LOCATION: right leg and landry DURATION: constant CHARACTERISTICS: swelling and redness AGGRAVATING FEATURES: standing ALLEVIATING FEATURES: ice RADIATION: knee down to landry Saw line builder yesterday who ordered an xray which has not resulted at this time. Concerned with the swelling and redness to the lower leg. 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 Taking Eliquis as prescribed without side effects. Has been icing area with mild relief. No hx of knee injury or surery. Denies fevers or chills. PAST MEDICAL HISTORY Diagnosis Date Angina at [...] of skin of nose Dr. Chowdary in [place] Stage 3a chronic kidney disease (HCC) Venous insufficiency ALLERGIES Norvasc [Amlodipine Besylate], Venom-Wasp, and Zithromax [Azithromycin] MEDICATIONS Current Outpatient Medications Medication Sig metoprolol succinate ER (TOPROL XL) 50 mg 24 hr tablet Take 1 tablet by mouth once daily. ammonium lactate (LAC-HYDRIN) 12 % cream Apply to affected area as needed. Apply on thick skin apixaban (ELIQUIS) 5 mg tab(s) Take 1 tablet by mouth two times a day. apixaban (ELIQUIS) 5 mg tab(s) Take 2 tablets (10 mg) by mouth twice daily for 6 days. Then take 1 tablet (5 mg) by mouth twice daily lisinopril (ZESTRIL) 40 mg tablet Take 1 tablet by mouth once daily. hydroCHLOROthiazide 25 mg tablet Take 1 tablet by mouth once daily. gabapentin (NEURONTIN) 300 mg capsule Take 300 mg by mouth daily at bedtime. atorvastatin (LIPITOR) 40 mg tablet Take 1 tablet by mouth once daily. levothyroxine (SYNTHROID) 125 mcg tablet TAKE 1 TABLET BY MOUTH EVERY DAY ON AN EMPTY STOMACH FOR THYROID amoxicillin (POLYMOX, AMOXIL) 500 mg capsule Take four capsules one hour before dental procedure. (Patient not taking: Reported on 12/19/2023) CPAP AutoPAP [id number]. Mask per preference, tubing, filters, humidity. Lifetime Supplies. Dx: G47.33. Fax 30 day compliance report to [phone]. CPAP Please provide mask fitting. Pt with [...] Social History Tobacco Use Smoking status: Never Passive exposure: Past Smokeless tobacco: Never Vaping Use Vaping status: Never Used Substance Use Topics Alcohol use: No Drug use: No REVIEW OF SYSTEMS All other reviewed and negative other than HPI. OBJECTIVE: BP 132/94 Pulse 84 Resp 18 Wt 128 kg (282 lb 3 oz) SpO2 98% BMI 38.27 kg/m? . Vital signs reviewed by this provider. APPEARANCE Well appearing, alert, in no acute distress, well-hydrated, well nourished. RIGHT LEG: moderate swelling to RLE in comparison to left. Erythema and warmth over landry. Faint ecchymosis laterally inferior to knee. Able to flex and extend with some discomfort on flexion. Mild TTP over patella. Depression Screening Never done Anxiety Screening Never done Advance Directive Discussion Never done LDL Cholesterol due on 11/03/2023 Covid-19 Vaccine( season) due on 12/31/2023 Influenza Vaccine(1) due on 12/31/2023 Hemoglobin/Hematocrit due on 10/25/2024 Serum Creatinine due on 10/26/2024 Annual PCP Team Chronic Disease Visit due on 10/29/2024 BP Controlled (more content not included)...[facility]09-20-2024 History of Present illness Narrative* PodlogarMarilia APRN.SUPERVISOR REMELT - 01/19/2024 9:41 AM EDT 01/19/2024 Patient presents with: Fall: X1 week ago, hurt right knee and has some swelling in the right lower landry SUBJECTIVE: This is a 78 year old that is here today for Above Complaints. ONSET: one week after a fall LOCATION: right leg and landry DURATION: constant CHARACTERISTICS: swelling and redness AGGRAVATING FEATURES: standing ALLEVIATING FEATURES: ice RADIATION: knee down to landry Saw line builder yesterday who ordered an xray which has not resulted at this time. Concerned withthe swelling and redness to the lower leg. 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 Taking Eliquis as prescribed without side effects. Has been icing area with mild relief.No hx of knee injury or surery. Denies fevers or chills. PAST MEDICAL HISTORY Diagnosis Date Angina at [...] of skin of nose Dr. Chowdary in [place] Stage 3a chronic kidney disease (HCC) Venous insufficiency ALLERGIES Norvasc [Amlodipine Besylate], Venom-Wasp, and Zithromax [Azithromycin] MEDICATIONS Current Outpatient Medications Medication Sig metoprolol succinate ER (TOPROL XL) 50 mg 24 hr tablet Take 1 tablet by mouth once daily. ammonium lactate (LAC-HYDRIN) 12 % cream Apply to affected area as needed. Apply on thick skin apixaban (ELIQUIS) 5 mg tab(s) Take 1 tablet by mouth two times a day. apixaban (ELIQUIS) 5 mg tab(s) Take 2 tablets (10 mg) by mouth twice daily for 6 days. Then take 1 tablet (5 mg) by mouth twice daily lisinopril (ZESTRIL) 40 mg tablet Take 1 tablet by mouth once daily. hydroCHLOROthiazide 25 mg tablet Take 1 tablet by mouth once daily. gabapentin (NEURONTIN) 300 mg capsule Take 300 mg by mouth daily at bedtime. atorvastatin (LIPITOR) 40 mg tablet Take 1 tablet by mouth once daily. levothyroxine (SYNTHROID) 125 mcg tablet TAKE 1 TABLET BY MOUTH EVERY DAY ON AN EMPTY STOMACH FOR THYROID amoxicillin (POLYMOX, AMOXIL) 500 mg capsule Take four capsules one hour before dental procedure. (Patient not taking: Reported on 12/19/2023) CPAP AutoPAP [id number]. Mask per preference, tubing, filters, humidity. Lifetime Supplies. Dx: G47.33. Fax 30 day compliance report to [phone]. CPAP Please provide mask fitting. Pt with subjective and some degree objective leaks. Prefers nasaltype mask. Thank you. DME = [facility] acetaminophen [...] Social History Tobacco Use Smoking status: Never Passive exposure: Past Smokeless tobacco: Never Vaping Use Vaping status: Never Used Substance Use Topics Alcohol use: No Drug use: No REVIEW OF SYSTEMS All other reviewed and negative other than HPI. OBJECTIVE: BP 132/94 Pulse 84 Resp 18 Wt 128 kg (282 lb 3 oz) SpO2 98% BMI 38.27 kg/m . Vital signs reviewed by this provider. APPEARANCE Well appearing, alert, in no acute distress, well-hydrated, well nourished. RIGHT LEG: moderate swelling to RLE in comparison to left. Erythema and warmth over landry. Faint ecchymosis laterally inferior to knee. Able to flex and extend with some discomfort on flexion. Mild TTP over patella. Depression Screening Never done Anxiety Screening Never done Advance Directive Discussion Never done LDL Cholesterol due on 11/03/2023 Covid-19 Vaccine() due on 12/31/2023 Influenza Vaccine(1) due on 12/31/2023 Hemoglobin/Hematocrit due on 10/25/2024 Serum Creatinine due on 10/26/2024 Annual PCP Team Chronic Disease Visit due on 10/29/2024 BP Controlled (<130/80) due on 01/17/2025 Diabetes Screening due on 10/26/2026 DTaP,Tdap,Td Vaccine(3 - Td or Tdap) due on 07/31/2029 RSV Vaccine Completed Shingrix Vaccine Completed Pneumococcal Vaccine: 65+ Completed Colorectal Cancer Screening Discontinued ASSESSMENT/PLAN: 1. Pain and swelling of right lower leg - ICD9: 729.5, 729.81, ICD10: M79.661, M79.89 - will do US to look for worsening of DVT - will cover for possible cellulitis - no red flag symptoms or exam findings - red flag symptoms discussed, verbalizes understanding - recommend icing and elevating, tylenol for pain - US DVT LOWER RIGHT - CEPHALEXIN 500 MG CAPSULE - COMPLETE BLOOD COUNT AND DIFFERENTIAL - continue Eliquis - follow-up Monday to re evaluate knee to ER with red flag symptoms Marilia Orozco APRN.SUPERVISOR REMELT Prescription instructions reviewed with patient as applicable. Patient advised if symptoms do not improve or if symptoms worsen sooner, to contact their primary care physician. Potential red flag symptoms discussed with the patient. Reviewed appropriate action plan to take if red flag symptoms occur. Patient agreeable to treatment plan. [facility] History of Present illness Narrative* Karen Wing RT(R) - 01/18/2024 12:20 PM EDT Radiology Service Progress Note PATIENT NAME: Fran Parekh DATE OF SERVICE: January 18, 2024 TIME: 12:17 PM PATIENT IDENTITY VERIFICATION COMPLETED USING TWO (2) IDENTIFIERS: Name and Date of confirmedby patient verbally. FALL SCREENING: Has the patient had 2 falls in the last year or 1 fall with injury or currently using an Ambulatory Assistive Device (Walker, Cane, Wheelchair, Crutches, etc.)? No PATIENT GENDER DATA: Male PATIENT RELEVANT IMPLANT DATA REVIEWED: Yes PATIENT PRESENTS WITH AN IMPLANTABLE OR ATTACHED LITERACY COACH: No RADIOLOGY DEPARTMENT: General X-ray: Exam(s) Completed: Lower Extremity X- Ray(s): Knee, AP / Lat / Tunne / Merchant Right and Wt. Bearing PERIPHERAL IV DATA: Not applicable SIGNED BY: KAYY Bustamante) January 18, 2024 12:17 PM documented in this encounterC[facility]24 NoteHNO ID: [id number] Author: WING, KAREN, RT(R) Service: Radiology Author Type: Technologist Type: Progress Notes Filed: 01/18/2024 12:33 Note Text: Radiology Service Progress Note PATIENT NAME: Fran Parekh DATE OF SERVICE: January 18, 2024 TIME: 12:17 PM PATIENT IDENTITY VERIFICATION COMPLETED USING TWO (2) IDENTIFIERS: Name and Date of confirmed by patient verbally. FALL SCREENING: Has the patient had 2 falls in the last year or 1 fall with injury or currently using an Ambulatory Assistive Device (Walker, Cane, Wheelchair, Crutches, etc.)? No PATIENT GENDER DATA: Male PATIENT RELEVANT IMPLANT DATA REVIEWED: Yes PATIENT PRESENTS WITH AN IMPLANTABLE OR ATTACHED LITERACY COACH: No RADIOLOGY DEPARTMENT: General X-ray: Exam(s) Completed: Lower Extremity X-Ray(s): Knee, AP / Lat / Tunne / Merchant Right and Wt. Bearing PERIPHERAL IV DATA: Not applicable SIGNED BY: RT Robby(R) January 18, 2024 12:17 [facility]09-19-2024 NoteHNO ID: [id number] Author: JOLEEN MUNOZ APRN.RUBÉN Service: ? Author Type: Nurse Practitioner Type: Progress Notes Filed: 01/18/2024 12:13 Note Text: Patient is seen by his physician. The physician already placed orders for x-ray and orthopedics consult. Confusion at the desk patient accidentally got checked in for a full visit. Patient is not here for full visit. Patient is just here for his x-ray. This will be corrected patient was not seen here.[facility]09-19-2024 History of Present illness Narrative* Joleen uMnoz APRN.RUBÉN - 01/18/2024 12:12 PM EDT Patient is seen by his physician. The physician already placed orders for x-ray and orthopedics consult. Confusion at the desk patient accidentally got checked in for a full visit. Patient is not here for full visit. Patient is just here for his x-ray. This will be corrected patient was not seen here. documented in this encounterC[facility]24 NoteHNO ID: [id number] Author: VICTOR MANUEL SAVAGE, DO Service: ? Author Type: Physician Type: Progress Notes Filed: 01/18/2024 09:33 Note Text: PULMONARY HYPERTENSION CLINIC Initial Visit January 18, 2024 I had the pleasure of seeing Fran Parekh in consultation at the request of for Pulmonary Hypertension. Summary of this visit and my recommendations will be relayed to the referring physician by way of electronic communication or by mail. PCP: Agnes Diaz MD Referring Provider: Subjective: I had the pleasure of seeing Fran Parekh in consultation for continued evaluation and and management of Pulmonary Hypertension. Summary of this visit and my recommendations will be relayed to the referring physician and primary care physician by way of electronic communication or by mail. HPI: Mr. Parekh is a 78 year old male with a PMH of DVT/PE, who presents today for evaluation of pulmonary hypertension. SYMPTOMS of PH / Right Heart failure?: Denies lower extremity edema, abdominal swelling/bloating/distension or early satiety, palpitations, chest tightness, lightheadedness, dizziness, syncope. She denies history of hospitalizations for heart failure. Additional History: MEDICATIONS: metoprolol succinate ER (TOPROL XL) 50 mg 24 hr tabletTake 1 tablet by mouth once daily.Disp: 90 tabletRfl: 1 ammonium lactate (LAC-HYDRIN) 12 % creamApply to affected area as needed. Apply on thick skinDisp: 140 gRfl: 1 apixaban (ELIQUIS) 5 mg tab(s)Take 1 tablet by mouth two times a day.Disp: 60 tabletRfl: 2 apixaban (ELIQUIS) 5 mg tab(s)Take 2 tablets (10 mg) by mouth twice daily for 6 days. Then take 1 tablet (5 mg) by mouth twice dailyDisp: 72 tabletRfl: 0 lisinopril (ZESTRIL) 40 mg tabletTake 1 tablet by mouth once daily.Disp: 90 tabletRfl: 1 hydroCHLOROthiazide 25 mg tabletTake 1 tablet by mouth once daily.Disp: 90 tabletRfl: 1 gabapentin (NEURONTIN) 300 mg capsuleTake 300 mg by mouth daily at bedtime.Disp: Rfl: atorvastatin (LIPITOR) 40 mg tabletTake 1 tablet by mouth once daily.Disp: 90 tabletRfl: 3 levothyroxine (SYNTHROID) 125 mcg tabletTAKE 1 TABLET BY MOUTH EVERY DAY ON AN EMPTY STOMACH FOR THYROIDDisp: 90 tabletRfl: 3 CPAPAutoPAP [id number]. Mask per preference, tubing, filters, humidity. Lifetime Supplies. Dx: G47.33. Fax 30 day compliance report to [phone].Disp: 1 EachRfl: 999 CPAPPlease provide mask fitting. Pt with subjective and some degree objective leaks. Prefers nasal type mask. Thank you. DME = [facility]p: 1 EachRfl: 99 acetaminophen 650 mg CR tabletTake 650 mg by mouth as needed.Disp: Rfl: aspirin, enteric coated (ASPIRIN, ENTERIC COATED) 81 mg EC tabletTake 81 mg by mouth once daily.Disp: Rfl: MULTIVITAMIN,TX-MINERALS ORAL TABTake one(1) tablet daily.Disp: 60Rfl: 0 amoxicillin (POLYMOX, AMOXIL) 500 mg capsuleTake four capsules one hour before dental procedure.Disp: 4 capsuleRfl: 3 (Patient not taking: Reported on 12/19/2023) ALLERGIES: ALLERGIES Allergen Reactions Norvasc [Amlodipine* Swelling pedal edema Venom-Wasp Swelling Zithromax [Azithrom* Itching HISTORY: PAST MEDICAL HISTORY Diagnosis Date Angina at [...] of skin of nose Dr. Chowdary in [place] Stage 3a chronic kidney disease (HCC) Venous insufficiency PAST SURGICAL HISTORY Procedure Laterality Date ARTHRP ACETBLR/PROX FEM PROSTC AGRFT/ALGRFT Right 06/03/2019 Hip replacement, total COLONOSCOPY FLX DX W/COLLJ SPEC WHEN PFRMD 04/21/11 Repeat 10 [id number] LASER GREENLIGHT prostate, [place] NEUROPLASTY AND/TRANSPOS MEDIAN NRV CARPAL TUNNE Left 01/17/2020 Left carpal tunnel release NEUROPLASTY AND/TRANSPOS MEDIAN NRV CARPAL TUNNE Right 03/04/2020 Right carpal tunnel release RPR UMBILICAL HRNA 5 YRS/> REDUCIBLE TONSILLECTOMY PRIMARY/SECONDARY Tonsillectomy FAMILY HISTORY Problem Relation Age of Onset Heart Mother other (Myocardial infarction) Mother 81 Headache Father MIGRAINES other (lung cancer) Father DECEACED AGE 86 YR LUNG CA No Known Problems Sister No Known Problems Sister Headache Sister MIGRAINES other (Myocardial infarction) Maternal Grandfather (more content not included)...[id number] History of Present illness Narrative* Victor Manuel Savage, - 01/18/2024 9:06 AM EDT Images from the original note were not included. PULMONARY HYPERTENSION CLINIC Initial Visit January 18, 2024 I had the pleasure of seeing Fran Parekh in consultation at the request of for Pulmonary Hypertension. Summary of this visit and my recommendations will be relayed to the referring physician by way of electronic communication or by mail. PCP: Agnes Diaz MD Referring Provider: Subjective: I had the pleasure of seeing Fran Parekh in consultation for continued evaluation and and management of Pulmonary Hypertension. Summary of this visit and my recommendations will be relayed to the referring physician and primary care physician by way of electronic communication or by mail. HPI: Mr. Parekh is a 78 year old male with a PMH of DVT/PE, who presents today for evaluation of pulmonary hypertension. SYMPTOMS of PH / Right Heart failure?: Denies lower extremity edema, abdominal swelling/bloating/distension or early satiety, palpitations, chest tightness, lightheadedness, dizziness, syncope. She denies history of hospitalizations for heart failure. Additional History: MEDICATIONS: metoprolol succinate ER (TOPROL XL) 50 mg 24 hr tablet^Take 1 tablet by mouth once daily.^Disp: 90 tablet^Rfl: 1 ammonium lactate (LAC-HYDRIN) 12 % cream^Apply to affected area as needed. Apply on thick skin^Disp: 140 g^Rfl: 1 apixaban (ELIQUIS) 5 mg tab(s)^Take 1 tablet by mouth two times a day.^Disp: 60 tablet^Rfl: 2 apixaban (ELIQUIS) 5 mg tab(s)^Take 2 tablets (10 mg) by mouth twice daily for 6 days. Then take 1 tablet (5 mg) by mouth twice daily^Disp: 72 tablet^Rfl: 0 lisinopril (ZESTRIL) 40 mg tablet^Take 1 tablet by mouth once daily.^Disp: 90 tablet^Rfl: 1 hydroCHLOROthiazide 25 mg tablet^Take 1 tablet by mouth once daily.^Disp: 90 tablet^Rfl: 1 gabapentin (NEURONTIN) 300 mg capsule^Take 300 mg by mouth daily at bedtime.^Disp: ^Rfl: atorvastatin (LIPITOR) 40 mg tablet^Take 1 tablet by mouth once daily.^Disp: 90 tablet^Rfl: 3 levothyroxine (SYNTHROID) 125 mcg tablet^TAKE 1 TABLET BY MOUTH EVERY DAY ON AN EMPTY STOMACH FOR THYROID^Disp: 90 tablet^Rfl: 3 CPAP^AutoPAP [id number]. Mask per preference, tubing, filters, humidity. Lifetime Supplies. Dx: G47.33. Fax 30 day compliance report to [phone].^Disp: 1 Each^Rfl: 999 CPAP^Please provide mask fitting. Pt with subjective and some degree objective leaks. Prefers nasaltype mask. Thank you. DME = [facility]^Disp: 1 Each^Rfl: 99 acetaminophen 650 mg CR tablet^Take 650 mg by mouth as needed.^Disp: ^Rfl: aspirin, enteric coated (ASPIRIN, ENTERIC COATED) 81 mg EC tablet^Take 81 mg by mouth once daily.^Disp: ^Rfl: MULTIVITAMIN,TX-MINERALS ORAL TAB^Take one(1) tablet daily.^Disp: 60^Rfl: 0 amoxicillin (POLYMOX, AMOXIL) 500 mg capsule^Take four capsules one hour before dental procedure.^Disp: 4 capsule^Rfl: 3 (Patient not taking: Reported on 12/19/2023) ALLERGIES: ALLERGIES Allergen Reactions Norvasc [Amlodipine* Swelling pedal edema Venom-Wasp Swelling Zithromax [Azithrom* Itching HISTORY: PAST MEDICAL HISTORY Diagnosis Date Angina at [...] of skin of nose Dr. Chowdary in [place] Stage 3a chronic kidney disease (HCC) Venous insufficiency PAST SURGICAL HISTORY Procedure Laterality Date ARTHRP ACETBLR/PROX FEM PROSTC AGRFT/ALGRFT Right 06/03/2019 Hip replacement, total COLONOSCOPY FLX DX W/COLLJ SPEC WHEN PFRMD 04/21/11 Repeat 10 [id number] LASER GREENLIGHT prostate, [place] NEUROPLASTY &/TRANSPOS MEDIAN [...] Social History Tobacco Use Smoking status: Never Passive exposure: Past Smokeless tobacco: Never Vaping Use Vaping status: Never Used Substance Use Topics Alcohol use: No Drug use: No Objective: PHYSICAL EXAM: VITALS: BP 143/86 Pulse 72 Resp 18 SpO2 97% General appearance: Alert, NAD Neck: Supple neck. Midline trachea. JVD not present at 45 degrees of incline. Respiratory: Lungs clear to auscultation. No wheezing, rhonchi, rales. Diaphragmatic excursion and chest wall symmetry appear equal and normal. No accessory muscle use. Cardiovascular: normal rate, regular rhythm, Non-displaced PMI. No parasternal heave. Abdomen/GI: Abdomen soft, non-tender, non-distended. No masses or organomegaly noted. Liver nonpulsitile. No hepatojugular reflux. Extremities: No clubbing or cyanosis of fingers. No cracking, pitting or petechiae on fingers. Capillary refill <2 sec bilaterally. 1+ peripheral edema noted in the lower extremities. Upper extremities appear normal. Normal temperature of all 4 extremities. Musculoskeletal: Spine shows no kyphosis or scoliosis. Muscles show no clear abnormality. Skin: No petechiae, ecchymoses, rash noted. Neuro: Oriented X 3. Normal mood and affect. DATA: Diagnostic tests reviewed for today's visit, films/specimens were personally reviewed by me: Most recent lab and imaging results Labs: DAVID No results found for: DAVID, ANAQL, ANAEIA Rheumatoid Factor No results found for: RF TSH TSH Date Value 10/23/2023 4.860 mIU/L 04/05/2021 0.486 uU/mL HIV No results found for: HIVSCN, [id number]] Hepatitis B Surface Antigen No results found for: HBSAGR Hepatitis C Hep C Antibody IA (no units) Date Value 05/06/2016 Negative NT PRO BNP Lab Results Component Value Date PBNP 2,953 (H) 10/23/2023 Chemistries Lab Results Component Value Date NA 140 10/27/2023 NA 141 10/26/2023 NA 142 10/25/2023 K 4.4 10/27/2023 K 4.3 10/26/2023 K 3.9 10/25/2023 CHLOR 107 10/27/2023 CHLOR 105 10/26/2023 CHLOR 105 10/25/2023 CO2 20 (L) 10/27/2023 CO2 23 10/26/2023 CO2 27 10/25/2023 BUN 25 (H) 10/27/2023 BUN 24 10/26/2023 BUN 24 10/25/2023 CREAT 1.32 (H) 10/27/2023 CREAT 1.34 (H) 10/26/2023 CREAT 1.64 (H) 10/25/2023 EGFRAA 57 02/01/2021 EGFRAA >60 07/30/2020 EGFRAA 60 04/25/2020 EGFROTH 55 (L) 10/27/2023 EGFROTH 54 (L) 10/26/2023 EGFROTH 42 (L) 10/25/2023 GLUC 103 (H) 10/27/2023 GLUC 118 (H) 10/26/2023 GLUC 107 (H) 10/25/2023 ANION 13 10/27/2023 ANION 13 10/26/2023 ANION 10 10/25/2023 Liver Function Lab Results Component Value Date AST 19 10/23/2023 AST 23 05/15/2023 AST 26 11/02/2022 ALT 18 10/23/2023 ALT 23 05/15/2023 ALT 27 11/02/2022 ALKPHOS 75 10/23/2023 ALKPHOS 76 05/15/2023 ALKPHOS 83 11/02/2022 TBILI 0.5 10/23/2023 TBILI 0.5 05/15/2023 TBILI 0.5 11/02/2022 CBC Lab Results Component Value Date HB 14.6 10/26/2023 HB 14.3 10/25/2023 HB 15.6 10/24/2023 HCT 41.8 10/26/2023 HCT 42.2 10/25/2023 HCT 45.7 10/24/2023 WBC 10.66 10/26/2023 WBC 10.95 10/25/2023 WBC 11.53 (H) 10/24/2023 PLT 165 10/26/2023 PLT 180 10/25/2023 PLT 203 10/24/2023 Assessment and Plan: IMPRESSION: 78 year old male with history of MARTIN on CPAP and central obesity found to have unprovoked acute bilateral pulmonary embolism (submassive, intermediate high risk) and proximal RLE DVT treated with medical management who presents for follow up. On day of PE in 10/22/2023, he presented due to abrupt onset of exertional dizziness with ~ one week of preceding dyspnea. This has since resolved ~2-3 weeks post-discharge. He denies functional limitation but his does note he breathes heavy and is not sure how long this has been going on. His initial echo has shown increased RV:LV ratio dating back to 10/2020. CTPE does show seemingly acute thrombus without stigmata of chronic PE ; also study shows suggestion of RA pressure overload based on contrast reflux, increased RA/RV size, with PA:Ao ratio of 1:1. Echocardiogram at time of PE shows mild- moderate RV dilation, systolic septal flattening, with RVSP 86. Repeat VQ scan on 11/22/2023 does show FEW mismatched defects in areas of prior PE. Repeat echocardiogram on 01/16/2024 is limited, RV does appear dilated however radial and longitudinal RV systolic function Is preserved. TR assesmsent is insufficient. Septal position is now normal. WHO FC I. Recommendation: - if there is recurrent symptoms or suggestion of PH, will pursue RHC +/- CPET - continue apixaban 5mg BID indefinitely given unprovoked PE with hypercoag panel after6 month period per Dr. Dorene Pepe (can consider Xarelto for cost) - advised to follow up with PCP to update colonoscopy for age related screening (defer until after 05/2024 given absence of of red flag symptoms otherwise) SIGNATURE: Victor Manuel Savage DO [facility] DATE of SERVICE: 01/18/2024 [facility] NoteHNO ID: [id number] Author: YOGESH FORMAN PT Service: ? Author Type: Physical Therapist Type: Progress Notes Filed: 01/17/2024 23:01 Note Text: Episode Visit Count: 5 Therapist That Will Accept/Oversee The Plan Of Care: Yogesh Forman PT Start of Care Date: 12/18/23 Onset Date: 10/22/23 Plan of Care Certification Date: 01/17/24 Next Certification Due Date: 02/14/24 Patient Identified by Name and Date of : Yes REHABILITATION AND SPORTS THERAPY PHYSICAL THERAPY PROGRESS REPORT PLAN OF CARE UPDATE: Assessment: Fran Parekh demonstrates moderate improvement in rising from a chair, walking, and walking in the community. He has progressed toward goals. Patient continues to present with impairments in ADL's, balance, gait, overall function, and strength that interfere with standing, walking . Current prognosis is Good due to: current objective clinical presentation, positive past response to therapy, good support system/ coping skills. He will benefit from continued skilled therapy services to meet the updated goals for this plan of care as noted below. Updated: 01/17/24 Goals for Episode of Care: created on 12/18/23 through 02/12/24 Patient will report no falls. - Not MET, will continue Improve performance on 4 Stage Balance Test to 10 second tandem and 14 second SLS to reflect decreased fall risk. - Partially MET, will continue [place] in home exercise program including cardiovascular exercise. - MET, will continue and progress to tolerance Patient will demonstrate independent and proper use of assisstive device to allow for improved walking quality and safety therefore reducing the risk of falls. - Partially MET, will continue Perform standing, walking and all ADLs with decreased report of symptoms / pain. - Partially MET, will continue Patient Goals: reconditioning to regain prior functional level. - Partially MET, will continue Time Frame for Goals and Treatment : 02/14/24 Patient Goals: reconditioning to regain prior functional level. Planned Interventions, Frequency, and Duration: 2x/week, 4 weeks Total Number of Visits Planned: 8 Patient to be seen for Therapeutic exercise (24223), Neuromuscular re-education (70583), Therapeutic activities (09401), Self-long-term management (71748), Gait Training (75484), Patient/Family/Caregiver Education, Body Mechanics Training, General Conditioning PLAN FOR NEXT VISIT: Continue with balance training, gait training, and LE functional strengthening. SUBJECTIVE: Pt feels that overall he is doing well and walking better. Despite the improvements, he reports catching his toe and falling on his R knee on Monday night 01/12/24. He reports sustaining a scrape on his R knee but he denies any other injury. He reports that R knee is stiff and sore but that he has not had it examined. Patient Goals: reconditioning to regain prior functional level. Functional Limitations: standing, walking Prior Level of Function: Independent without limitations Intake Information: Prescription present Pain: Pain Pain Level: 5 Pain Location: Back Description: (some) Frequency: Intermittent, Standing, Walking Post Treatment Pain Post Treatment Pain Level: No Change Post Treatment Symptoms: Pt reported fatigue from a good workout but he denied any increase in pain or any other negative effects. PROMIS Scales 01/17/2024 12/18/2023 12/27/2022 Higher is Better Phys Func - Score 37 (moderate dysfunction) 36 (moderate dysfunction) 38 (moderate dysfunction) Phys Func - Percentile 10 8 12 Self-Eff Symptom - Score 41 (Average) 41 (Average) 42 (Average) Self-Eff Symptom - Percentile 18 18 21 T-scores: mean of general population = 50. 5 points is clinically meaningfully difference Percentiles provide an indication of how the patient's score ranks in relation to the general population. Higher percentile rankings indicate better function/quality of life. 50th percentile is the average of the general population and indicates half of respondents had a worse score. OBJECTIVE MEASURES WITH LEVEL OF FUNCTION: LE Strength R LE Strength: Pt strength has improved functionally for step ups and sit to stand. L LE Strength: Pt strength has improved functionally for step ups and sit to stand. Gait Gait Observation: Quality of gait is improved with improved step height and length. 4 Stage Balance Test Tandem base of support (sec): 9 sec Single leg stance - right (sec): 0 sec Single leg stance - left (sec): 0 sec TREATMENT: Therapeutic Exercise: 1: [employer] StepOne seat #16 resistance level 0 x6 minutes (1:1 throughout. Pt provided an update on his condition and plan of care reviewed with recommendations.) 2: Original HEP reviewed and continuation encouraged 3: repeated sit to stand from mat table 18 inches tall 2x12 without UE 4: B forward step ups on 9 step (2 blue) 2x10 Skilled Intervention: Patient was educate (more content not included)... [facility]09-18-2024 History of Present illness Narrative* Yogesh Forman PT - 01/17/2024 10:57 PM EDT Images from the original note were not included. Episode Visit Count: 5 Therapist That Will Accept/Oversee The Plan Of Care: Yogesh Forman PT Start of Care Date: 12/18/23 Onset Date: 10/22/23 Plan of Care Certification Date: 01/17/24 Next Certification Due Date: 02/14/24 Patient Identified by Name and Date of : Yes REHABILITATION AND SPORTS THERAPY PHYSICAL THERAPY PROGRESS REPORT PLAN OF CARE UPDATE: Assessment: Fran Parekh demonstrates moderate improvement in rising from a chair, walking, and walking in the community. He has progressed toward goals. Patient continues to present with impairments in ADL's,balance, gait, overall function, and strength that interfere with standing, walking . Current prognosis is Good due to: current objective clinical presentation, positive past response to therapy, good support system/ coping skills. He will benefit from continued skilled therapy services to meet theupdated goals for this plan of care as noted below. Updated: 01/17/24 Goals for Episode of Care: created on 12/18/23 through 02/12/24 Patient will report no falls. - Not MET, will continue Improve performance on 4 Stage Balance Test to 10 second tandem and 14 second SLS to reflect decreased fall risk. - Partially MET, will continue [place] in home exercise program including cardiovascular exercise. - MET, will continue and progress to tolerance Patient will demonstrate independent and proper use of assisstive device to allow for improved walking quality and safety therefore reducing the risk of falls. - Partially MET, will continue Perform standing, walking and all ADLs with decreased report of symptoms / pain. - Partially MET, will continue Patient Goals: reconditioning to regain prior functional level. - Partially MET, will continue Time Frame for Goals and Treatment : 02/14/24 Patient Goals: reconditioning to regain prior functional level. Planned Interventions, Frequency, and Duration: 2x/week, 4 weeks Total Number of Visits Planned: 8 Patient to be seen for Therapeutic exercise (61036), Neuromuscular re-education (51557), Therapeutic activities (76543), Self-long-term management (79536), Gait Training (57713), Patient/Family/Caregiver Education, Body Mechanics Training, General Conditioning PLAN FOR NEXT VISIT: Continue with balance training, gait training, and LE functional strengthening. SUBJECTIVE: Pt feels that overall he is doing well and walking better. Despite the improvements, hereports catching his toe and falling on his R knee on Monday night 01/12/24. He reports sustaining ascrape on his R knee but he denies any other injury. He reports that R knee is stiff and sore but that he has not had it examined. Patient Goals: reconditioning to regain prior functional level. Functional Limitations: standing, walking Prior Level of Function: Independent without limitations Intake Information: Prescription present Pain: Pain Pain Level: 5 Pain Location: Back Description: (some) Frequency: Intermittent, Standing, Walking Post Treatment Pain Post Treatment Pain Level: No Change Post Treatment Symptoms: Pt reported fatigue from a good workout but he denied any increase in painor any other negative effects. PROMIS Scales 01/17/2024 12/18/2023 12/27/2022 Higher is Better Phys Func - Score 37 (moderate dysfunction) 36 (moderate dysfunction) 38 (moderate dysfunction) Phys Func - Percentile 10 8 12 Self-Eff Symptom - Score 41 (Average) 41 (Average) 42 (Average) Self-Eff Symptom - Percentile 18 18 21 T-scores: mean of general population = 50. 5 points is clinically meaningfully difference Percentiles provide an indication of how the patient's score ranks in relation to the general population. Higher percentile rankings indicate better function/quality of life. 50th percentile is the average of the general population and indicates half of respondents had a worse score. OBJECTIVE MEASURES WITH LEVEL OF FUNCTION: LE Strength R LE Strength: Pt strength has improved functionally for step ups and sit to stand. L LE Strength: Pt strength has improved functionally for step ups and sit to stand. Gait Gait Observation: Quality of gait is improved with improved step height and length. 4 Stage Balance Test Tandem base of support (sec): 9 sec Single leg stance - right (sec): 0 sec Single leg stance - left (sec): 0 sec TREATMENT: Therapeutic Exercise: 1: [employer] StepOne seat #16 resistance level 0 x6 minutes (1:1 throughout. Pt provided an update on his condition and plan of care reviewed with recommendations.) 2: Original HEP reviewed and continuation encouraged 3: repeated sit to stand from mat table 18 inches tall 2x12 without UE 4: B forward step ups on 9 step (2 blue) 2x10 Skilled Intervention: Patient was educated in proper exercise technique and purpose for exercises. Skilled judgment was used in selection of appropriate interventions. Correct performance of therapeutic exercises was facilitated with verbal, visual, and tactile cuing. Neuromuscular Re-Education: 1: B SLS done as test and treatment 3: B tandem stance eyes open as test and treatment 4: forward stepping over 6 red 6 inch hurdles x2 passes 5: lateral stepping over 6 red 6 inch hurdels x1 pass each direction Skilled Intervention: Ensured patient safety with use of gait belt and intermittent assist. Billing Therapeutic Exercise Treatment Minutes: 25 Neuromuscular Re-Education Treatment Minutes: 15 Skilled Treatment Time Minutes (timed and untimed codes): 40 Total Session Time (minutes): 40 Session Start Time : 1520 Session Stop Time : 1600 Yogesh Forman PT documented in this encounterC[facility] History of Present illness Narrative* CHRISSY De Dios - 01/15/2024 11:00 AM EDT Subjective Fran Parekh is a 78 y.o. male who presents for the following: Skin Check. Review of Systems: No other skin or systemic complaints other than what is documented elsewhere in the note. 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 Past Surgical History: Fran Parekh has no past surgical history on file. Family History: Patient family history is not on file. Social History: Fran Parekh has no history on file for tobacco use, alcohol use, and drug use. Allergies: Zithromax [azithromycin] Current Medications / CAM's: Current Outpatient Medications: ammonium lactate (Amlactin) 12 % cream, Apply topically if needed for dry skin., Disp: 140 g, Rfl: 11 Objective Well appearing patient in no apparent distress; mood and affect are within normal limits. Assessment/Plan 1. Xerosis cutis Fine, ashy, pale to white scale diffusely over skin. ammonium lactate (Amlactin) 12 % cream Apply topically if needed for dry skin. 2. Keratosis pilaris Related Medications ammonium lactate (Amlactin) 12 % cream Apply topically if needed for dry skin. 3. Multiple benign nevi Brown and oconnor macules and papules with reassuring findings on dermoscopy -These lesions have benign, reassuring patterns on dermoscopy -Recommend continued self observation, and to contact the office if any changes in nevi are noticed 4. Lentigo Oconnor macules -Benign appearing on exam -Reassurance, recommend observation 5. Seborrheic keratosis Stuck on, waxy macule(s)/papule(s)/plaque(s) with comedo-like openings and milia like cysts -Discussed the nature of the diagnosis -Reassurance, recommend continued observation documented 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 Perhaps it should go to radiology or the person who ordered it? * Telephone Encounter - Harriet Grider RN - 01/10/2024 11:47 AM EDT Patient calling and requesting a disc for his 05/15/23 Lumbar XRAY. He is interested in getting a disc to [facility] Painting surgeon. Informed pt that a message would be sent to Radiology for this request. Please call patient with an update regarding this request. Harriet Grider RN documented in this encounterC[facility]09-[facility]24 Telephone encounter Note * Telephone Encounter - Ju Cedillo RN - 01/10/2024 1:[address] Samuel has never seen this patient. Perhaps it should go to radiology or the person who ordered it? [facility]09-11-[facility] Telephone encounter Note* Telephone Encounter - Harriet Grider RN - 01/10/2024 11:47 AM EDT Patient calling and requesting a disc for his 05/15/23 Lumbar XRAY. He is interested in getting a disc to [facility] Painting surgeon. Informed pt that a message would be sent to Radiology for this request. Please call patient with an update regarding this request. Harriet Grider RN [facility]09-11-2024 NoteHNO ID: [id number] Author: YOGESH FORMAN PT Service: ? Author Type: Physical Therapist Type: Progress Notes Filed: 01/10/2024 10:54 Note Text: Episode Visit Count: 4 Therapist That Will Accept/Oversee The Plan Of Care: Yogesh Forman PT Start of Care Date: 12/18/23 Onset Date: 10/22/23 Plan of Care Certification Date: 12/18/23 Next Certification Due Date: 02/12/24 Patient Identified by Name and Date of : Yes REHABILITATION AND SPORTS THERAPY PHYSICAL THERAPY TREATMENT NOTE ASSESSMENT: Fran Rascon Marinosanaz tolerated the session with fatigue and no issues. He demonstrated improvements in gait and exercise tolerance. The patient will continue to benefit from ongoing skilled physical therapy to progress toward set goals. PLAN FOR NEXT VISIT: Continue with balance training, gait training, and LE functional strengthening. SUBJECTIVE: Pt reports that overall he is feeling the same or possibly slightly better since last session. He states that he is definitely not worse. He reports compliance with HEP 2x day without problems. Pain: Pain Pain Level: 6 Pain Location: Leg - Right, Leg - Left Description: Sharp (electric) Frequency: Intermittent, Standing, Walking Post Treatment Pain Post Treatment Pain Level: No Change Post Treatment Symptoms: Pt reported fatigue from a good workout but he denied any increase in pain or any other negative effects. OBJECTIVE MEASURES WITH LEVEL OF FUNCTION: TREATMENT: Therapeutic Exercise: 1: [employer] StepOne seat #16 resistance level 0 x6 minutes (1:1 throughout. Pt provided an update on his condition and plan of care reviewed with recommendations.) 2: Original HEP reviewed and continuation encouraged 3: repeated sit to stand from mat table 18 inches tall 2x12 without UE 4: B forward step ups on 9 step (2 blue) 2x10 Skilled Intervention: Patient was educated in proper exercise technique and purpose for exercises. Skilled judgment was used in selection of appropriate interventions. Correct performance of therapeutic exercises was facilitated with verbal and visual cuing. Patient education as noted. Neuromuscular Re-Education: 1: NBOS on square blue foam eyes open 2x30 seconds 2: NBOS on square blue foam eyes closed 2x30 seconds 3: B tandem stance eyes open 2x20 seconds each 4: forward stepping over 6 red 6 inch hurdles x2 passes 5: lateral stepping over 6 red 6 inch hurdels x1 pass each direction Skilled Intervention: Skilled judgment used to assess appropriate program for balance and coordination activity. Ensured patient safety with use of gait belt and intermittent assist. Billing Therapeutic Exercise Treatment Minutes: 26 Neuromuscular Re-Education Treatment Minutes: 20 Skilled Treatment Time Minutes (timed and untimed codes): 46 Total Session Time (minutes): 46 Session Start Time : 1000 Session Stop Time : 1046 Yogesh Forman [facility]09-11-2024 History of Present illness Narrative* Yogesh Forman, PT - 01/10/2024 10:53 AM EDT Episode Visit Count: 4 Therapist That Will Accept/Oversee The Plan Of Care: Yogesh Forman PT Start of Care Date: 12/18/23 Onset Date: 10/22/23 Plan of Care Certification Date: 12/18/23 Next Certification Due Date: 02/12/24 Patient Identified by Name and Date of : Yes REHABILITATION AND SPORTS THERAPY PHYSICAL THERAPY TREATMENT NOTE ASSESSMENT: Fran Parekh tolerated the session with fatigue and no issues. He demonstrated improvements in gait and exercise tolerance. The patient will continue to benefit from ongoing skilled physical therapy to progress toward set goals. PLAN FOR NEXT VISIT: Continue with balance training, gait training, and LE functional strengthening. SUBJECTIVE: Pt reports that overall he is feeling the same or possibly slightly better since last session. He states that he is definitely not worse. He reports compliance with HEP 2x day without problems. Pain: Pain Pain Level: 6 Pain Location: Leg - Right, Leg - Left Description: Sharp (electric) Frequency: Intermittent, Standing, Walking Post Treatment Pain Post Treatment Pain Level: No Change Post Treatment Symptoms: Pt reported fatigue from a good workout but he denied any increase in painor any other negative effects. OBJECTIVE MEASURES WITH LEVEL OF FUNCTION: TREATMENT: Therapeutic Exercise: 1: [employer] StepOne seat #16 resistance level 0 x6 minutes (1:1 throughout. Pt provided an update on his condition and plan of care reviewed with recommendations.) 2: Original HEP reviewed and continuation encouraged 3: repeated sit to stand from mat table 18 inches tall 2x12 without UE 4: B forward step ups on 9 step (2 blue) 2x10 Skilled Intervention: Patient was educated in proper exercise technique and purpose for exercises. Skilled judgment was used in selection of appropriate interventions. Correct performance of therapeutic exercises was facilitated with verbal and visual cuing. Patient education as noted. Neuromuscular Re-Education: 1: NBOS on square blue foam eyes open 2x30 seconds 2: NBOS on square blue foam eyes closed 2x30 seconds 3: B tandem stance eyes open 2x20 seconds each 4: forward stepping over 6 red 6 inch hurdles x2 passes 5: lateral stepping over 6 red 6 inch hurdels x1 pass each direction Skilled Intervention: Skilled judgment used to assess appropriate program for balance and coordination activity. Ensured patient safety with use of gait belt and intermittent assist. Billing Therapeutic Exercise Treatment Minutes: 26 Neuromuscular Re-Education Treatment Minutes: 20 Skilled Treatment Time Minutes (timed and untimed codes): 46 Total Session Time (minutes): 46 Session Start Time : 1000 Session Stop Time : 1046 Yogesh Forman PT documented in this encounterC[facility] Telephone encounter Note * Telephone Encounter - Amara Owen MA - 01/08/2024 10:21 AM EDT Prescription Refill Information The patient has been identified by name and date of : Yes Caregiver verified no other encounters exist for this prescription request: Yes Caregiver confirmed with patient/requestor that no other refills are due, in the near future, with this provider at this time: No The last office visit in the department: 10/30/23 Does the patient have a future office visit with this provider/department: No Requested Prescriptions Pending Prescriptions Disp Refills metoprolol succinate ER (TOPROL XL) 50 mg 24 hr tablet 30 tablet 2 Sig: Take 1 tablet by mouth once daily. Amara Owen MA January 08, 2024 10:21 AM [facility]09-09-2024 Miscellaneous Notes* Telephone Encounter - Amara Owen MA - 01/08/2024 10:21 AM EDT Prescription Refill Information The patient has been identified by name and date of : Yes Caregiver verified no other encounters exist for this prescription request: Yes Caregiver confirmed with patient/requestor that no other refills are due, in the near future, with this provider at this time: No The last office visit in the department: 10/30/23 Does the patient have a future office visit with this provider/department: No Requested Prescriptions Pending Prescriptions Disp Refills metoprolol succinate ER (TOPROL XL) 50 mg 24 hr tablet 30 tablet 2 Sig: Take 1 tablet by mouth once daily. Amara Owen MA January 08, 2024 10:21 AM * Telephone Encounter - Sheyla Card - 01/06/2024 10:11 AM EDT Patient has been identified by name and date of : Yes, Provider CARIN Date 01/06/2024 Time 10:17AM Patient phones for refill(s): Requested Prescriptions Pending Prescriptions Disp Refills metoprolol succinate ER (TOPROL XL) 50 mg 24 hr tablet 30 tablet 2 Sig: Take 1 tablet by mouth once daily. Date of last office visit in primary care: 10/30/2023 Date of next office visit in primary care: Visit date not found Please advise. Thank you. Sheyla Schneider. [facility] NoteHNO ID: [id number] Author: SHERRELL JACKSON PT Service: ? Author Type: Physical Therapist Type: Progress Notes Filed: 01/08/2024 11:00 Note Text: Episode Visit Count: 3 Therapist That Will Accept/Oversee The Plan Of Care: Yogesh Forman PT Start of Care Date: 12/18/23 Onset Date: 10/22/23 Plan of Care Certification Date: 12/18/23 Next Certification Due Date: 02/12/24 Patient Identified by Name and Date of : Yes REHABILITATION AND SPORTS THERAPY PHYSICAL THERAPY TREATMENT NOTE ASSESSMENT: Fran Parekh tolerated the session with fatigue and expected muscle soreness. He demonstrated difficulty with eccentric control with lowering himself with STS. The patient will continue to benefit from ongoing skilled physical therapy to progress toward set goals. PLAN FOR NEXT VISIT: Continue with balance, gait, and LE functional strengthening. SUBJECTIVE: Pt reports that he is usually better in the afternoons than in the morning, Pt states taking Gabopentin before bed. Pt states that he took some Tylenol this morning, has not kicked in yet. Pt still having issues with his sciatica in BLE. Pt states that he was tired after last session. Pt states he is trying not to shuffle with walking and is doing better, except for during the night. Pain: Pain Pain Level: 0 Post Treatment Pain Post Treatment Pain Level: 0 Post Treatment Symptoms: Pt stated fatigue at end of session. OBJECTIVE MEASURES WITH LEVEL OF FUNCTION: Increased difficulty with maintaining upright posture with balance exercises. TREATMENT: Therapeutic Exercise: 1: TokBoxFit StepOne seat #16 resistance level 0 x6 minutes (1:1 throughout. Pt provided an update on his condition and plan of care reviewed with recommendations.) 2: seated B alt hip flexion 2x10 3: seated B ankle DF/PF 2x20 4: repeated sit to stand from mat table 18 inches tall 2x10 without UE 5: seated B alt knee extension 2x10 Skilled Intervention: Patient was educated in proper exercise technique and purpose for exercises. Skilled judgment was used in selection of appropriate interventions. Correct performance of therapeutic exercises was facilitated with verbal and visual cuing. Neuromuscular Re-Education: 1: B Semi-tandem with EO x 30 seconds 2: B Semi-tandem with EC x 30 seconds 3: NBOS EC x30 seconds 4: Tandem stance x30 seconds B (Occasional tap on // bars) Skilled Intervention: Skilled judgment used to assess appropriate program for balance and coordination activity. Ensured patient safety with use of gait belt. Self-Long-Term Management: 1: Discussed putting night lights along pathway to restroom to decrease shuffling during the middle of the night. Skilled Intervention: Skilled judgment in the selection of proper modification for activity of daily living/home management based on clinical presentation, deficits, and needs. Activity progression based on professional judgement. Billing Therapeutic Exercise Treatment Minutes: 29 Neuromuscular Re-Education Treatment Minutes: 15 Self-Care/Home Management Treatment Minutes: 5 Skilled Treatment Time Minutes (timed and untimed codes): 49 Total Session Time (minutes): 49 Session Start Time : 929 Session Stop Time : 101 Tabby Umanaanjelica, [employer] Sherrell Jackson, [facility]09-09-2024 History of Present illness Narrative* Sherrell Jackson, PT - 01/08/2024 9:33 AM EDT Episode Visit Count: 3 Therapist That Will Accept/Oversee The Plan Of Care: Yogesh Forman PT Start of Care Date: 12/18/23 Onset Date: 10/22/23 Plan of Care Certification Date: 12/18/23 Next Certification Due Date: 02/12/24 Patient Identified by Name and Date of : Yes REHABILITATION AND SPORTS THERAPY PHYSICAL THERAPY TREATMENT NOTE ASSESSMENT: Fran Parekh tolerated the session with fatigue and expected muscle soreness. He demonstrated difficulty with eccentric control with lowering himself with STS. The patient will continueto benefit from ongoing skilled physical therapy to progress toward set goals. PLAN FOR NEXT VISIT: Continue with balance, gait, and LE functional strengthening. SUBJECTIVE: Pt reports that he is usually better in the afternoons than in the morning, Pt states taking Gabopentin before bed. Pt states that he took some Tylenol this morning, has not kicked in yet. Pt still having issues with his sciatica in BLE. Pt states that he was tired after last session. Pt states he is trying not to shuffle with walking and is doing better, except for during the night. Pain: Pain Pain Level: 0 Post Treatment Pain Post Treatment Pain Level: 0 Post Treatment Symptoms: Pt stated fatigue at end of session. OBJECTIVE MEASURES WITH LEVEL OF FUNCTION: Increased difficulty with maintaining upright posture with balance exercises. TREATMENT: Therapeutic Exercise: 1: TokBoxFit StepOne seat #16 resistance level 0 x6 minutes (1:1 throughout. Pt provided an update on his condition and plan of care reviewed with recommendations.) 2: seated B alt hip flexion 2x10 3: seated B ankle DF/PF 2x20 4: repeated sit to stand from mat table 18 inches tall 2x10 without UE 5: seated B alt knee extension 2x10 Skilled Intervention: Patient was educated in proper exercise technique and purpose for exercises. Skilled judgment was used in selection of appropriate interventions. Correct performance of therapeutic exercises was facilitated with verbal and visual cuing. Neuromuscular Re-Education: 1: B Semi-tandem with EO x 30 seconds 2: B Semi-tandem with EC x 30 seconds 3: NBOS EC x30 seconds 4: Tandem stance x30 seconds B (Occasional tap on // bars) Skilled Intervention: Skilled judgment used to assess appropriate program for balance and coordination activity. Ensured patient safety with use of gait belt. Self-Long-Term Management: 1: Discussed putting night lights along pathway to restroom to decrease shuffling during the middleof the night. Skilled Intervention: Skilled judgment in the selection of proper modification for activity of daily living/home management based on clinical presentation, deficits, and needs. Activity progression based on professional judgement. Billing Therapeutic Exercise Treatment Minutes: 29 Neuromuscular Re-Education Treatment Minutes: 15 Self-Care/Home Management Treatment Minutes: 5 Skilled Treatment Time Minutes (timed and untimed codes): 49 Total Session Time (minutes): 49 Session Start Time : 929 Session Stop Time : 1019 RUBENS Allred PT documented in [facility] Telephone encounter Note * Telephone Encounter - Sheyla Card - 01/06/2024 10:11 AM EDT Patient has been identified by name and date of : Yes, Provider CARIN Date 01/06/2024 Time 10:17AM Patient phones for refill(s): Requested Prescriptions Pending Prescriptions Disp Refills metoprolol succinate ER (TOPROL XL) 50 mg 24 hr tablet 30 tablet 2 Sig: Take 1 tablet by mouth once daily. Date of last office visit in primary care: 10/30/2023 Date of next office visit in primary care: Visit date not found Please advise. Thank you. Sheyla Schneider. [facility]09-[facility]24 NoteHNO ID: [id number] Author: YOGESH FORMAN PT Service: ? Author Type: Physical Therapist Type: Progress Notes Filed: 01/04/2024 16:40 Note Text: Episode Visit Count: 2 Therapist That Will Accept/Oversee The Plan Of Care: Yogesh Forman PT Start of Care Date: 12/18/23 Onset Date: 10/22/23 Plan of Care Certification Date: 12/18/23 Next Certification Due Date: 02/12/24 Patient Identified by Name and Date of : Yes REHABILITATION AND SPORTS THERAPY PHYSICAL THERAPY TREATMENT NOTE ASSESSMENT: Fran Parekh tolerated the session with fatigue and expected muscle soreness. He demonstrated improvements in gait and HEP compliance. The patient will continue to benefit from ongoing skilled physical therapy to progress toward set goals. PLAN FOR NEXT VISIT: Review, correct and progress HEP to tolerance. Continue balance and gait training and continue with functional LE strength training. SUBJECTIVE: Pt denies any falls since evaluation last session. He denies any significant changes since last session. He reports compliance with HEP 2x day without any problems or difficulty. He reports that he has been working to improve his gait. He reports that he has been taking bigger steps and this has been helpful. Pain: Post Treatment Pain Post Treatment Pain Level: No Change Post Treatment Symptoms: Pt reported that he could tell he received a good workout. OBJECTIVE MEASURES WITH LEVEL OF FUNCTION: Gait Gait Observation: Much improved with larger steps and improved ground clearance. TREATMENT: Therapeutic Exercise: 1: TokBoxFit StepOne seat #16 resistance level 0 x6 minutes (1:1 throughout. Pt provided an update on his condition and plan of care reviewed with recommendations.) 2: seated B ankle DF/PF 2x20 3: seated B alt hip flexion 2x10 4: seated B alt knee extension 2x10 5: repeated sit to stand from mat table 18 inches tall 2x10 without UE 6: B forward step ups on 7 inch step (2 green) in // bars 2x10 each Skilled Intervention: Patient was educated in proper exercise technique and purpose for exercises. Skilled judgment was used in selection of appropriate interventions. Correct performance of therapeutic exercises was facilitated with verbal and visual cuing. Neuromuscular Re-Education: 1: B semi-tandem x30 seconds each 2: NBOS on blue foam balance square 2x30 seconds 3: forward stepping over 6 red 6 inch hurdles x2 passes 4: lateral stepping over 6 red 6 inch hurdels x1 pass each direction Skilled Intervention: Skilled judgment used to assess appropriate program for balance and coordination activity. Ensured patient safety with use of gait belt and intermittent assist Gait Trainin: Gait corrections and recommendations from previous session reviewed. Skilled Intervention: Facilitated proper gait cycle with the use of verbal and visual cues for correction of gait deviations identified in the objective section above. Gait belt utilized during session for safety. Billing Therapeutic Exercise Treatment Minutes: 25 Neuromuscular Re-Education Treatment Minutes: 17 Gait Training Treatment Minutes: 5 Skilled Treatment Time Minutes (timed and untimed codes): 47 Total Session Time (minutes): 47 Session Start Time : 1540 Session Stop Time : 1627 Yogesh Forman [facility]09-05-2024 History of Present illness Narrative* Yogesh Forman PT - 01/04/2024 4:39 PM EDT Episode Visit Count: 2 Therapist That Will Accept/Oversee The Plan Of Care: Yogesh Forman PT Start of Care Date: 12/18/23 Onset Date: 10/22/23 Plan of Care Certification Date: 12/18/23 Next Certification Due Date: 02/12/24 Patient Identified by Name and Date of : Yes REHABILITATION AND SPORTS THERAPY PHYSICAL THERAPY TREATMENT NOTE ASSESSMENT: Fran Parekh tolerated the session with fatigue and expected muscle soreness. He demonstrated improvements in gait and HEP compliance. The patient will continue to benefit from ongoing skilled physical therapy to progress toward set goals. PLAN FOR NEXT VISIT: Review, correct and progress HEP to tolerance. Continue balance and gait training and continue withfunctional LE strength training. SUBJECTIVE: Pt denies any falls since evaluation last session. He denies any significant changes since last session. He reports compliance with HEP 2x day without any problems or difficulty. He reports that he has been working to improve his gait. He reports that he has been taking bigger steps andthis has been helpful. Pain: Post Treatment Pain Post Treatment Pain Level: No Change Post Treatment Symptoms: Pt reported that he could tell he received a good workout. OBJECTIVE MEASURES WITH LEVEL OF FUNCTION: Gait Gait Observation: Much improved with larger steps and improved ground clearance. TREATMENT: Therapeutic Exercise: 1: TokBoxFit StepOne seat #16 resistance level 0 x6 minutes (1:1 throughout. Pt provided an update on his condition and plan of care reviewed with recommendations.) 2: seated B ankle DF/PF 2x20 3: seated B alt hip flexion 2x10 4: seated B alt knee extension 2x10 5: repeated sit to stand from mat table 18 inches tall 2x10 without UE 6: B forward step ups on 7 inch step (2 green) in // bars 2x10 each Skilled Intervention: Patient was educated in proper exercise technique and purpose for exercises. Skilled judgment was used in selection of appropriate interventions. Correct performance of therapeutic exercises was facilitated with verbal and visual cuing. Neuromuscular Re-Education: 1: B semi-tandem x30 seconds each 2: NBOS on blue foam balance square 2x30 seconds 3: forward stepping over 6 red 6 inch hurdles x2 passes 4: lateral stepping over 6 red 6 inch hurdels x1 pass each direction Skilled Intervention: Skilled judgment used to assess appropriate program for balance and coordination activity. Ensured patient safety with use of gait belt and intermittent assist Gait Trainin: Gait corrections and recommendations from previous session reviewed. Skilled Intervention: Facilitated proper gait cycle with the use of verbal and visual cues for correction of gait deviations identified in the objective section above. Gait belt utilized during session for safety. Billing Therapeutic Exercise Treatment Minutes: 25 Neuromuscular Re-Education Treatment Minutes: 17 Gait Training Treatment Minutes: 5 Skilled Treatment Time Minutes (timed and untimed codes): 47 Total Session Time (minutes): 47 Session Start Time : 1540 Session Stop Time : 1627 Yogesh Forman PT documented in this encounterC[facility]-20-[facility] History of Present illness Narrative* Sidra Gómez MD - 12/19/2023 2:30 PM EDT Images from the original note were not included. [facility] [place] [facility] Department of Cardiovascular Medicine SECTION OF VASCULAR MEDICINE OUTPATIENT VISIT DATE December 19, 2023 OUTPATIENT VISIT TYPE CONSULTATION Consult regarding: Hypercoagulable workup? History of saddle PE Consult requested by: Victor Manuel Savage My final recommendations will be communicated back to the requesting physician by way of the sharedmedical record or by letter. Primary care physician: Agnes Diaz MD History of present illness: 78-year-old male with history of hypertension, dyslipidemia, CAD, prediabetes, MARTIN on CPAP, CKD 3a,lung nodule, pancreatic cyst central obesity, unprovoked acute bilateral pulmonary embolism 10/22/2023 (submassive, mild-moderate RV dilation, systolic septal flattening, with RVSP 86 , intermediate risk) and acute right Wuv-Egq-wmyf DVT (10/23/2023) treated with medical management, and pulmonary hypertension. He was discharged on Eliquis, which currently takes. Patient follows with pulmonology (Victor Manuel Savage DO) for pulmonary hypertension.Last visit 11/09/2023; recommended VQ scan and repeat echocardiogram. Prior to the diagnosis patient reported no hospitalizations, surgeries, long travels, immobilization or trauma. Patient's reports patient had swelling in both legs during his travel to [place] in May 2023. He had no chest discomfort or SOB. Patient adds he has had swelling in the legs ever since hip surgery in 2019. He underwent venous incompetency study in 12/2020 and found reflux in both GSV. He was recommended to wear compression stockings. Referred to vascular medicine for consideration of hypercoagulable workup History of thrombosis: as above, otherwise, History of CVA/TIA/CO: no Current or prior use of hormonal medications (testosterone supplementation): denies History of known hypercoagulable state: denies History of malignancy: SCC of nose s/p resection (follows with dermatology once a year) Health maintenance: colonoscopy 2010 (recommended 10 yr follow up; not yet done) PSA - not History of being treated with anticoagulants: no Family history of thrombosis in the first degree relatives: no No swelling, pain, redness, increased warmth or other sign of DVT. No chest pain, SOB, palpitations, lightheadedness or other signs of PE. No bleeding including epistaxis, hemoptysis, hematemesis, hematuria, hematochezia, melena, excessive bruising Allergies: is allergic to norvasc [amlodipine besylate], venom-wasp, and zithromax [azithromycin]. Medications: apixaban (ELIQUIS) 5 mg tab(s)^Take 1 tablet by mouth two times a day.^Disp: 60 tablet^Rfl: 2 apixaban (ELIQUIS) 5 mg tab(s)^Take 2 tablets (10 mg) by mouth twice daily for 6 days. Then take 1 tablet (5 mg) by mouth twice daily^Disp: 72 tablet^Rfl: 0 metoprolol succinate ER (TOPROL XL) 50 mg 24 hr tablet^Take 1 tablet by mouth once daily.^Disp: 30 tablet^Rfl: 2 lisinopril (ZESTRIL) 40 mg tablet^Take 1 tablet by mouth once daily.^Disp: 90 tablet^Rfl: 1 hydroCHLOROthiazide 25 mg tablet^Take 1 tablet by mouth once daily.^Disp: 90 tablet^Rfl: 1 gabapentin (NEURONTIN) 300 mg capsule^Take 300 mg by mouth daily at bedtime.^Disp: ^Rfl: atorvastatin (LIPITOR) 40 mg tablet^Take 1 tablet by mouth once daily.^Disp: 90 tablet^Rfl: 3 levothyroxine (SYNTHROID) 125 mcg tablet^TAKE 1 TABLET BY MOUTH EVERY DAY ON AN EMPTY STOMACH FOR THYROID^Disp: 90 tablet^Rfl: 3 amoxicillin (POLYMOX, AMOXIL) 500 mg capsule^Take four capsules one hour before dental procedure.^Disp: 4 capsule^Rfl: 3 CPAP^AutoPAP [id number]. Mask per preference, tubing, filters, humidity. [employer]. Dx: G47.33. Fax 30 day compliance report to [phone].^Disp: 1 Each^Rfl: 999 CPAP^Please provide mask fitting. Pt with subjective and some degree objective leaks. Prefers nasaltype mask. Thank you. DME = [employer]^Disp: 1 Each^Rfl: 99 acetaminophen 650 mg CR tablet^Take 650 mg by mouth as needed.^Disp: ^Rfl: aspirin, enteric coated (ASPIRIN, ENTERIC COATED) 81 mg EC tablet^Take 81 mg by mouth once daily.^Disp: ^Rfl: MULTIVITAMIN,TX-MINERALS ORAL TAB^Take one(1) tablet daily.^Disp: 60^Rfl: 0 Past medical history: has a past medical history of Angina at rest (HCC) (09/14/2016), Arthritis ofhip (06/08/2018), ASHD (arteriosclerotic heart disease) (09/14/2016), Bilateral carpal tunnel syndrome, Bilateral lower extremity edema, BPH (benign prostatic hyperplasia), Class 2 obesity due to exce ss calories with body mass index (BMI) of 38.0 to 38.9 in adult, Diverticulosis of colon (without mention of hemorrhage), Essential hypertension, benign, Hyperlipidemia LDL goal <100 (09/14/2016),Hypothyroidism, Intention tremor (05/07/2012), Internal derangement of right knee (05/07/2012), Mass of pancreas (05/12/2014), Obstructive sleep apnea, PMH - PAST MEDICAL HISTORY OF, Prediabetes, 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 He has no past medical history of Atrial fibrillation (HCC), Cancer (HCC), Chronic obstructive pulmonary disease (COPD) (HCC), Chronic renal insufficiency, Congestive heart failure (HCC), Depression,Diabetes (HCC), Epilepsy (HCC), pathology transcriptionist (current) use of systemic steroids, Stroke (HCC), or Substance abuse (HCC). Past surgical history: has a past surgical history that includes rpr umbilical hrna 5 yrs/> reducible; tonsillectomy primary/secondary <age 11; colonoscopy flx dx w/collj spec when pfrmd (04/21/11); laser greenlight; arthrp acetblr/prox fem prostc agrft/algrft (Right, 06/03/2019); neuroplasty&/transpos median nrv carpal tunne (Left, 01/17/2020); and neuroplasty &/transpos median nrv carpal tunne (Right, 03/04/2020). Family history: family history includes Headache in his father and sister; Heart in his mother; Myocardial infarction (age of onset: 64) in his maternal grandfather; Myocardial infarction (age of onset: 74) in his maternal uncle; Myocardial infarction (age of onset: 81) in his mother; No Known Problems in his sister and sister; lung cancer in his father. Social history: reports that he has never smoked. He has been exposed to tobacco smoke. He has never used smokeless tobacco. He reports that he does not drink alcohol and does not use drugs. REVIEW OF SYSTEMS: Review of systems: General Fever or chills - No Night sweats - No Change in weight - no Lumps in groin, underarms - No Neurological Headaches - No Seizures - No Passing out - No Dizziness/light headedness - just prior to PE diagnosed Numbness, tingling, pins or needles - buttocks and legs ( has sciatica) Weakness in arms or legs - No Head, eyes, ears, nose and throat Changes in hearing - No Changes in vision - No Nose bleeds - No Difficulty or pain with swallowing - No Cardiovascular Chest pain or pressure - No Palpitations - No Irregular heartbeat - No Shortness of breath - No Respiratory Cough - No Wheezing - No Shortness of breath at rest - No Shortness of breath with exertion - No Coughing up blood - No Sleep apnea - sleep apnea Gastrointestinal Abdominal pain - No Nausea/vomiting - No Diarrhea/Constipation - No Stomach pain after eating - No Blood in stool - No Black stool - No Genitourinary Pain with urination - No Blood in urine - No Gynecology - N/A Abnormal vaginal bleeding - N/A History of loss - N/A Extremity Bulging veins - No Swelling in arms or legs - YES Redness of extremities - No Pain with walking - YES Color change of hands/feet/digits - No Musculoskeletal Joint pain - YES Joint swelling - No Back pain - YES Muscle pain or ache - No Skin Rash - No Lesions - No Slow healing sores - No Tight or thickened skin - No Hematology Low blood counts - No Easy bruising - YES Blood transfusions - No Psychology Depressed mood - No Anxiety or history of panic attacks - No History of recreational drug use - No Cancer screening (up to date?): Colonoscopy: No Pap smear: N/A Mammogram: N/A Prostate: N/A Smoking history: -Current or past smoker? No -If current smoker, are you interested in help with quitting? N/A Physical exam: BP 145/82 Pulse 70 Wt 129.7 kg (285 lb 15 oz) BMI 38.78 kg/m BP w/Orthostatic Vitals Date and Time Orthostatic BP Orthostatic Pulse BP Pulse BP Position BP Site BP Cuff Size 12/19/23 1451 -- -- 145/82 70 -- -- -- 12/19/23 1448 -- -- 133/86 -- -- -- -- General: Alert and oriented, in no acute distress, pleasant mood. Skin: Healthy, intact, no ulcerations, no rashes. HEENT: Head normocephalic, extraocular muscles intact, sclera anicteric, neck supple, no JVD, no carotid bruit. Cardiovascular: Heart has a regular rate and rhythm without murmur. Respiratory: Lungs clear auscultation bilaterally. Gastrointestinal: Abdomen soft and nontender. No abdominal bruit or palpable mass. Musculoskeletal: No cyanosis or clubbing. Peripheral vascular: Dorsalis pedis and posterior tibial pulses 2+/2 bilaterally. Feet and toes warm pink and well perfused. Lower extremities: 1+ pitting edema in both legs, dorsal hump, Imaging 10/23/2023 IMPRESSION: Positive study for acute proximal DVT in the right lower extremity femoral and popliteal veins. Positive study for acute calf DVT in the right posterior tibial and peroneal veins. Negative study for superficial thrombophlebitis in the imaged segments of the left and right lower extremities. Labs Latest Ref Rng 10/25/2023 10/26/2023 WBC 3.70 - 11.00 k/uL 10.95 10.66 RBC 4.20 - 6.00 m/uL 4.43 4.41 Hemoglobin 13.0 - 17.0 g/dL 14.3 14.6 Hematocrit 39.0 - 51.0 % 42.2 41.8 MCV 80.0 - 100.0 fL 95.3 94.8 MCH 26.0 - 34.0 pg 32.3 33.1 MCHC 30.5 - 36.0 g/dL 33.9 34.9 RDW-CV 11.5 - 15.0 % 14.4 14.6 Platelet Count 150 - 400 k/uL 180 165 MPV 9.0 - 12.7 fL 9.8 9.7 Absolute nRBC <0.01 k/uL <0.01 <0.01 Glucose 74 - 99 mg/dL 118 (H) BUN 9 - 24 mg/dL 24 Creatinine 0.73 - 1.22 mg/dL 1.34 (H) Sodium 136 - 144 mmol/L 141 Potassium 3.7 - 5.1 mmol/L 4.3 Chloride 98 - 107 mmol/L 105 CO2 22 - 30 mmol/L 23 Anion Gap 8 - 15 mmol/L 13 Calcium 8.5 - 10.2 mg/dL 8.9 eGFR >=60 mL/min/1.73m 54 (L) Latest Ref Rng 10/23/2023 LUIS High Sensitivity <12 ng/L 52 (H) NT Pro BNP <450 pg/mL 2,953 (H) Legend: (H) High Legend: (H) High (L) Low Impression/Recommendations: (Z86.328) History of venous thromboembolism (primary encounter diagnosis) (Z79.01) Current use of chcf 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 (Z68.38) BMI 38.0-38.9,adult (I27.29) Other secondary pulmonary hypertension (HCC) Plan: CONSULT TO VASCULAR MEDICINE (R60.0) Lower extremity edema (N18.31) Stage 3a chronic kidney disease (HCC) 78-year-old male with history of hypertension, dyslipidemia, CAD, prediabetes, MARTIN on CPAP, CKD 3a,lung nodule, pancreatic cyst central obesity who presents for evaluation of recent VTE. Venous thromboembolism Acute bilateral pulmonary embolism 10/22/2023 (submassive, mild-moderate RV dilation, systolic septal flattening, with RVSP 86 , intermediate risk) and acute right Rwp-Tir-xmmn DVT (10/23/2023), treated medically and discharged on Eliquis, which currently takes. Etiology is likely unprovoked. No prior personal or family history of VTE. 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 Current 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 - Eliquis 5 mg twice a day Estimated Creatinine Clearance: 63.2 mL/min (A) (based on SCr of 1.32 mg/dL (H)). BMI 38 No s/s of acute VTE on exam today Plan: We discussed mostly unprovoked nature of VTE and risk of recurrence Recommend to complete at least 6 months of therapeutic 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. Patient meets a forma indication for long-term VTE prophylaxis. I recommended to continue Eliquis 5 mg twice daily at this time. Plan to contact limited thrombophilia testing for acquired thrombophilia in the future. Testing cannot be done on DOAC, and will require interruption of 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. We discussed association of unprovoked thrombotic events with malignancy in some patients. Patient was recommended to follow-up with primary care physician for age-appropriate cancer screening. Notably, patient is overdue for colonoscopy. Secondary hypertension in the setting of pulmonary embolism Patient will follow-up with pulmonology and is planned for VQ scan and repeat echo. Bilateral lower extremity edema has been longstanding Likely multifactorial in the setting of venous stasis, limited calf muscle pumping function, obesity and likely liberal salt intake in addition to the recent diagnosis of RLE DVT. Patient was recommended to continue wearing compression stockings with zipper. He indicated, he would not be able to tolerate otherwise recommended 30-40 millimeters mercury knee-high compression stockings. We spent time discussing benefit of weight loss and lifestyle modification. There are areas of improvement in his diet. Will also discussed benefit of calf muscle strengthening exercises. All questions answered RTC 6 mo, earlier EBONIN SIDRA PEPE MD CC: MD Victor Manuel Singh DO documented in [facility] NoteHNO ID: [id number] Author: SIDAR GÓMEZ MD Service: ? Author Type: Physician Type: Progress Notes Filed: 12/19/2023 16:30 Note Text: [facility] [place] [facility] Department of Cardiovascular Medicine SECTION OF VASCULAR MEDICINE OUTPATIENT VISIT DATE December 19, 2023 OUTPATIENT VISIT TYPE CONSULTATION Consult regarding: Hypercoagulable workup? History of saddle PE Consult requested by: Victor Manuel Savage My final recommendations will be communicated back to the requesting physician by way of the shared medical record or by letter. Primary care physician: Agnes Diaz MD History of present illness: 78-year-old male with history of hypertension, dyslipidemia, CAD, prediabetes, MARTIN on CPAP, CKD 3a, lung nodule, pancreatic cyst central obesity, unprovoked acute bilateral pulmonary embolism 10/22/2023 (submassive, mild-moderate RV dilation, systolic septal flattening, with RVSP 86 , intermediate risk) and acute right Cbw-Pdx-tggd DVT (10/23/2023) treated with medical management, and pulmonary hypertension. He was discharged on Eliquis, which currently takes. Patient follows with pulmonology (Victor Manuel Savage DO) for pulmonary hypertension.Last visit 11/09/2023; recommended VQ scan and repeat echocardiogram. Prior to the diagnosis patient reported no hospitalizations, surgeries, long travels, immobilization or trauma. Patient's reports patient had swelling in both legs during his travel to [place] in May 2023. He had no chest discomfort or SOB. Patient adds he has had swelling in the legs ever since hip surgery in 2019. He underwent venous incompetency study in 12/2020 and found reflux in both GSV. He was recommended to wear compression stockings. Referred to vascular medicine for consideration of hypercoagulable workup History of thrombosis: as above, otherwise, History of CVA/TIA/CO: no Current or prior use of hormonal medications (testosterone supplementation): denies History of known hypercoagulable state: denies History of malignancy: SCC of nose s/p resection (follows with dermatology once a year) Health maintenance: colonoscopy 2010 (recommended 10 yr follow up; not yet done) PSA - not History of being treated with anticoagulants: no Family history of thrombosis in the first degree relatives: no No swelling, pain, redness, increased warmth or other sign of DVT. No chest pain, SOB, palpitations, lightheadedness or other signs of PE. No bleeding including epistaxis, hemoptysis, hematemesis, hematuria, hematochezia, melena, excessive bruising Allergies: is allergic to norvasc [amlodipine besylate], venom-wasp, and zithromax [azithromycin]. Medications: apixaban (ELIQUIS) 5 mg tab(s)Take 1 tablet by mouth two times a day.Disp: 60 tabletRfl: 2 apixaban (ELIQUIS) 5 mg tab(s)Take 2 tablets (10 mg) by mouth twice daily for 6 days. Then take 1 tablet (5 mg) by mouth twice dailyDisp: 72 tabletRfl: 0 metoprolol succinate ER (TOPROL XL) 50 mg 24 hr tabletTake 1 tablet by mouth once daily.Disp: 30 tabletRfl: 2 lisinopril (ZESTRIL) 40 mg tabletTake 1 tablet by mouth once daily.Disp: 90 tabletRfl: 1 hydroCHLOROthiazide 25 mg tabletTake 1 tablet by mouth once daily.Disp: 90 tabletRfl: 1 gabapentin (NEURONTIN) 300 mg capsuleTake 300 mg by mouth daily at bedtime.Disp: Rfl: atorvastatin (LIPITOR) 40 mg tabletTake 1 tablet by mouth once daily.Disp: 90 tabletRfl: 3 levothyroxine (SYNTHROID) 125 mcg tabletTAKE 1 TABLET BY MOUTH EVERY DAY ON AN EMPTY STOMACH FOR THYROIDDisp: 90 tabletRfl: 3 amoxicillin (POLYMOX, AMOXIL) 500 mg capsuleTake four capsules one hour before dental procedure.Disp: 4 capsuleRfl: 3 CPAPAutoPAP [id number]. Mask per preference, tubing, filters, humidity. [employer]. Dx: G47.33. Fax 30 day compliance report to [phone].Disp: 1 EachRfl: 999 CPAPPlease provide mask fitting. Pt with subjective and some degree objective leaks. Prefers nasal type mask. Thank you. DME = [employer]ireDisp: 1 EachRfl: 99 acetaminophen 650 mg CR tabletTake 650 mg by mouth as needed.Disp: Rfl: aspirin, enteric coated (ASPIRIN, ENTERIC COATED) 81 mg EC tabletTake 81 mg by mouth once daily.Disp: Rfl: MULTIVITAMIN,TX-MINERALS ORAL TABTake one(1) tablet daily.Disp: 60Rfl: 0 Past medical history: has a past medical history of Angina at rest (HCC) (09/14/2016), Arthritis of hip (06/08/2018), ASHD (arteriosclerotic heart disease) (09/14/2016), Bilateral carpal tunnel syndrome, Bilateral lower extremity edema, BPH (benign prostatic hyperplasia), Class 2 obesity due to excess calories with body mass index (BMI) of 38.0 to 38.9 in adult, Diverticulosis of colon (without mention of hemorrhage), Essential hypertension, benign, Hyperlipidemia LDL goal <100 (09/14/2016), Hypothyroidism, Intention tremor (05/07/2012), Internal derangement of right knee (05/07/2012), Mass of pancreas (05/12/2014), Obstru (more content not included)...[facility]08-19-2024 NoteHNO ID: [id number] Author: YOGESH FORMAN PT Service: ? Author Type: Physical Therapist Type: Progress Notes Filed: 12/18/2023 23:52 Note Text: Episode Visit Count: 1 Therapist That Will Accept/Oversee The Plan Of Care: Yogesh Forman PT Start of Care Date: 12/18/23 Onset Date: 10/22/23 Plan of Care Certification Date: 12/18/23 Next Certification Due Date: 02/12/24 Patient Identified by Name and Date of : Yes REHABILITATION AND SPORTS THERAPY PHYSICAL THERAPY EVALUATION PLAN OF CARE: Assessment: Fran Parekh presents with diagnosis of unsteady gait that interferes with standing, walking. He presents with impairments in ADL's, balance, gait, independence in exercise, overall function, and strength. PROMIS? (Patient-Reported Outcomes Measurement Information System) scores were reviewed and identified as a rehabilitation concern. Prognosis for therapy is Good due to: current objective clinical presentation, acuteness of condition, positive past response to therapy, good support system/ coping skills, within-session changes. He will benefit from skilled therapy services to meet the goals established for this plan of care as noted below. Assessment Fall Risk : Active at risk Goals for Episode of Care: created on 12/18/23 through 02/12/24 Patient will report no falls. Improve performance on 4 Stage Balance Test to 10 second tandem and 14 second SLS to reflect decreased fall risk. [place] in home exercise program including cardiovascular exercise. Patient will demonstrate independent and proper use of assisstive device to allow for improved walking quality and safety therefore reducing the risk of falls. Perform standing, walking and all ADLs with decreased report of symptoms / pain. Patient Goals: reconditioning to regain prior functional level. Planned Interventions, Frequency, and Duration: Current Frequency: 2x/week Duration: 8 weeks Total Number of Visits Planned: 16 Planned Treatment Interventions: Therapeutic exercise (12933), Neuromuscular re-education (86864), Therapeutic activities (91771), Self-long-term management (00887), Gait Training (54910), Patient/Family/Caregiver Education, Body Mechanics Training, Functional training, General Conditioning PLAN FOR NEXT VISIT: Review, correct and progress HEP to tolerance. Begin balanace and gait training. Patient demonstrates good understanding of plan of care and treatment. The above goals and plan of care were discussed and agreed upon by patient/family. SUBJECTIVE: Pt reports unsteady gait and debility related to a recent hospitalization. He reports that he became dizzy and short of breath on a Monday morning. He was taken to ER where PEs were identified in his lungs. He was admitted to [facility] for 6 days and when discharged, PT was ordered for his unsteady gait. Pt denies any falls. Patient Goals: reconditioning to regain prior functional level. 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[employer]) Home Environment Patient Lives With: Spouse (but is moving back to [place] next month) Home Type: Multi-Level Entry To Home: Stairs, Without Rail Number Of Stairs Into Home: 2 Number Of Stairs To Bed/Bath: 1st floor 1/2 bath, 12 steps to full bath and bedroom Stairs to Bed/Bath with: Unilateral Rail Intake Information: Prescription present Previous Treatment: Acute Hospital Falls Interview: No positive findings with falls interview (no falls but fall risk is increased secondary to gait deviations and recent hospitalization.) Falls History # of falls in past year: 0 Pain: Pain Pain Level: 0 Description: (no pain currently) Post Treatment Pain Post Treatment Pain Level: Better Post Treatment Symptoms: After session today, pt reported increased confidence and that he felt better. PROMIS Scales 12/18/2023 12/27/2022 11/29/2022 Higher is Better Phys Func - Score 36 (moderate dysfunction) 38 (moderate dysfunction) 35 (moderate dysfunction) Phys Func - Percentile 8 12 7 Self-Eff Symptom - Score 41 (Average) 42 (Average) 44 (Average) Self-Eff Symptom - Percentile 18 21 27 T-scores: mean of general population = 50. 5 points is clinically meaningfully difference Percentiles provide an indication of how the patient's score ranks in relation to the general population. Higher percentile rankings indicate better function/quality of life. 50th percentile is the average of the general population and indicates half of respondents had a worse score. OBJECTIVE MEASURES WITH LEVEL OF FUNCTION: LE Strength R LE Strength: Pt's functional difficulties with sit to stand, and his poor foot clearance with gait indicate that he will benefit from increased functional LE strength and endurance. L LE Strength: Pt's f (more content not included)...[facility] 12-18-2023 History of Present illness Narrative* Yogesh Forman PT - 12/18/2023 11:37 PM EDT Images from the original note were not included. Episode Visit Count: 1 Therapist That Will Accept/Oversee The Plan Of Care: Yogesh Forman PT Start of Care Date: 12/18/23 Onset Date: 10/22/23 Plan of Care Certification Date: 12/18/23 Next Certification Due Date: 02/12/24 Patient Identified by Name and Date of : Yes REHABILITATION AND SPORTS THERAPY PHYSICAL THERAPY EVALUATION PLAN OF CARE: Assessment: Fran Parekh presents with diagnosis of unsteady gait that interferes with standing, walking. He presents with impairments in ADL's, balance, gait, independence in exercise, overall function, and strength. PROMIS (Patient-Reported Outcomes Measurement Information System) scores were reviewed and identified as a rehabilitation concern. Prognosis for therapy is Good due to: current objective clinical presentation, acuteness of condition, positive past response to therapy, good support system/ coping skills, within-session changes. He will benefit from skilled therapy services to meet the goals established for this plan of care as noted below. Assessment Fall Risk : Active at risk Goals for Episode of Care: created on 12/18/23 through 02/12/24 Patient will report no falls. Improve performance on 4 Stage Balance Test to 10 second tandem and 14 second SLS to reflect decreased fall risk. [place] in home exercise program including cardiovascular exercise. Patient will demonstrate independent and proper use of assisstive device to allow for improved walking quality and safety therefore reducing the risk of falls. Perform standing, walking and all ADLs with decreased report of symptoms / pain. Patient Goals: reconditioning to regain prior functional level. Planned Interventions, Frequency, and Duration: Current Frequency: 2x/week Duration: 8 weeks Total Number of Visits Planned: 16 Planned Treatment Interventions: Therapeutic exercise (73927), Neuromuscular re- education (06157), Therapeutic activities (20024), Self-long-term management (03093), Gait Training (40383), Patient/Family/Caregiver Education, Body Mechanics Training, Functional training, General Conditioning PLAN FOR NEXT VISIT: Review, correct and progress HEP to tolerance. Begin balanace and gait training. Patient demonstrates good understanding of plan of care and treatment. The above goals and plan of care were discussed and agreed upon by patient/family. SUBJECTIVE: Pt reports unsteady gait and debility related to a recent hospitalization. He reports that he became dizzy and short of breath on a Monday morning. He was taken to ER where PEs were identified in hislungs. He was admitted to [facility] for 6 days and when discharged, PT was ordered for his unsteady gait. Pt denies any falls. Patient Goals: reconditioning to regain prior functional level. 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[employer]) Home Environment Patient Lives With: Spouse (but is moving back to [place] next month) Home Type: Multi-Level Entry To Home: Stairs, Without Rail Number Of Stairs Into Home: 2 Number Of Stairs To Bed/Bath: 1st floor 1/2 bath, 12 steps to full bath and bedroom Stairs to Bed/Bath with: Unilateral Rail Intake Information: Prescription present Previous Treatment: Acute Hospital Falls Interview: No positive findings with falls interview (no falls but fall risk is increased secondary to gait deviations and recent hospitalization.) Falls History # of falls in past year: 0 Pain: Pain Pain Level: 0 Description: (no pain currently) Post Treatment Pain Post Treatment Pain Level: Better Post Treatment Symptoms: After session today, pt reported increased confidence and that he felt better. PROMIS Scales 12/18/2023 12/27/2022 11/29/2022 Higher is Better Phys Func - Score 36 (moderate dysfunction) 38 (moderate dysfunction) 35 (moderate dysfunction) Phys Func - Percentile 8 12 7 Self-Eff Symptom - Score 41 (Average) 42 (Average) 44 (Average) Self-Eff Symptom - Percentile 18 21 27 T-scores: mean of general population = 50. 5 points is clinically meaningfully difference Percentiles provide an indication of how the patient's score ranks in relation to the general population. Higher percentile rankings indicate better function/quality of life. 50th percentile is the average of the general population and indicates half of respondents had a worse score. OBJECTIVE MEASURES WITH LEVEL OF FUNCTION: LE Strength R LE Strength: Pt's functional difficulties with sit to stand, and his poor foot clearance with gait indicate that he will benefit from increased functional LE strength and endurance. L LE Strength: Pt's functional difficulties with sit to stand, and his poor foot clearance with gait indicate that he will benefit from increased functional LE strength and endurance. Gait Gait Observation: Pt has shuffling pattern with short step lengths and lower than normal step height that leads to poor foot clearance. Mild increased lateral trunk sway. Functional Performance Test Results 30 Second Chair Stand Test: 11 reps Timed Up and Go (sec): 9.06 sec 4 Stage Balance Test Narrow base of support (sec): 10 sec Semi-tandem base of support (sec): 10 sec Tandem base of support (sec): 0 sec Single leg stance - right (sec): 0 sec Single leg stance - left (sec): 0 sec Vitals BP: 130/83 Pulse: (!) 55 Education: Education Learning Preferences: Demonstration, Explanation, Performance, Printed Materials Barriers: None Learning/educational needs: Safety, Plan of Care, Changes in Plan of Care, Gait Training, Posture, Body Mechanics Education Provided: Yes, see treatment interventions for education provided Education Provided To: Patient Education Mode/Type: Demonstration, Explanation/Discussion, Literature/Printed Materials, Performance Response to Education/Teach Back: States/Identifies, Return Demonstration, Requires Review/Additional Education TREATMENT: PT Treatment Interventions: Therapeutic Exercise, Gait Training Evaluation Therapeutic Exercise: 1: Pt was educated on the role of LE strength on foot clearance during gait. Pt was advised to complete seated home exercises but that he should not attempt balance tests and exercises. 2: *seated B ankle DF/PF 2x20 3: *seated B alt hip flexion 2x10 4: *seated B alt knee extension 2x10 Skilled Intervention: Patient was educated in proper exercise technique and purpose for exercises. Reviewed and educated patient on additions/changes for home exercise program as above (*). Skilled judgment was used in selection of appropriate interventions. Provided written instruction for home exercise program to facilitate proper performance and compliance. Correct performance of therapeutic exercises was facilitated with verbal and visual cuing. Patient education as noted. Gait Trainin: Pt was educated on the gait deviations identified and how to correct. The option of using an assistive device explained. Specifically, he was encouraged to increase step height and step length to decrease shuffling and fall risk. Skilled Intervention: Facilitated proper gait cycle with the use of verbal and visual cues for correction of gait deviations identified in the objective section above. Gait belt utilized during session for safety. Billing * Evaluation Low Complexity: 1 Unit Therapeutic Exercise Treatment Minutes: 15 Gait Training Treatment Minutes: 10 Skilled Treatment Time Minutes (timed and untimed codes): 45 Total Session Time (minutes): 45 Session Start Time : 834 Session Stop Time : 919 Yogesh Forman PT documented in this [facility] Telephone encounter Note * Telephone Encounter - Halie Perez LPN - 11/27/2023 11:10 AM EDT Patient appt was moved to a sooner date. [facility]07-29-[facility]24 Miscellaneous Notes* Telephone Encounter - Halie Perez LPN - 11/27/2023 11:10 AM EDT Patient appt was moved to a sooner date. * Telephone Encounter - Halie Perez LPN - 11/27/2023 10:11 AM EDT Message forwarded to the [facility] clerical pool for assistance with scheduling. * Telephone Encounter - Anitra Fong - 11/27/2023 9:59 AM EDT Patient called and stated that his line builder wants him to be seen CASSY and asked if Dr. Pepe can see him sooner than March. Please advise documented in this encounterC[facility]-29-[facility]24 Telephone encounter Note * Telephone Encounter - Halie Perez LPN - 11/27/2023 10:11 AM EDT Message forwarded to the [facility] clerical pool for assistance with scheduling. [facility]07-[facility] Telephone encounter Note* Telephone Encounter - Anitra Fong - 11/27/2023 9:59 AM EDT Patient called and stated that his line builder wants him to be seen CASS[facility] and asked if Dr. Pepe can see him sooner than March. Please advise [place] [id number] History of Present illness Narrative* Nadeem Barron, RT(R) - 11/22/2023 2:00 PM EDT RADIOLOGY SERVICE PROGRESS NOTE SERVICE DATE: 11/22/2023 SERVICE TIME: 2:00 PM PATIENT IDENTITY VERIFICATION COMPLETED USING TWO (2) STANDARD IDENTIFIERS: Name and Date of confirmed by patient verbally and Name and Date of confirmed by identification band FALL SCREENING: Has the patient had 2 falls in the last year or 1 fall with injury or currently using an Ambulatory Assistive Device (Walker, Cane, Wheelchair, Crutches, etc.)? No PATIENT GENDER DATA: .male ALLERGIES: Reviewed and unchanged MEDICATIONS REVIEWED: No PATIENT RELEVANT IMPLANT DATA REVIEWED: Not Applicable PATIENT PRESENTS WITH AN IMPLANTABLE OR ATTACHED LITERACY COACH: No CREATININE: Creatinine Date Value Ref Range Status 10/27/2023 1.32 (H) 0.73 - 1.22 mg/dL Final 10/26/2023 1.34 (H) 0.73 - 1.22 mg/dL Final 10/25/2023 1.64 (H) 0.73 - 1.22 mg/dL Final Estimated Glomerular Filtration Rate Date Value Ref Range Status 10/27/2023 55 (L) >=60 mL/min/1.73m Final Comment: Estimated Glomerular Filtration Rate (eGFR) is calculated using the 2020 CKD-EPI creatinine equation. This equation utilizes serum creatinine, sex, and age as parameters. The creatinine assay has traceable calibration to isotope dilution- mass spectrometry. Refer to KDIGO guidelines for clinical interpretation. In patients with unstable renal function, e.g. those with acute kidney injury, the eGFRmay not accurately reflect actual GFR. eGFR- Date Value Ref Range Status 02/01/2021 57 Final P.O.C.T. RESULTS: N/A November 22, [address] PERFORMED: No IV SITE: Ambulatory: A peripheral IV was started in the Right antecubital site with a Angio cath: 22 gauge. POST EXAM PIV STATUS: Discontinued PROCEDURE TYPE: VQ Scan: 0.8 mCi of Tc99m DTPA was inhaled. 5.8 mCi of Tc99m MAA was administered IV. ADMINISTRATION TIME: 1332/1355 PATIENT DISCHARGED TO: Ambulatory patient, left [place] department area. A Diagnostic radioactive procedure has taken place, with no further precautions necessary other than routine body substance precautions. More information regarding radiation safety can be found usingthis link: [email or web address]%20Nuclear%20Medicine%[email or web address] SIGNATURE: KAYY Mccartney) PATIENT NAME: Fran Parekh DATE: November 22, 2023 TIME: 2:00 PM PAGER/CONTACT #: documented in this encounterC[facility]24 NoteHNO ID: [id number] Author: NADEEM BARRON RT (R) Service: ? Author Type: Technologist Type: Progress Notes Filed: 11/22/2023 14:00 Note Text: RADIOLOGY SERVICE PROGRESS NOTE SERVICE DATE: 11/22/2023 SERVICE TIME: 2:00 PM PATIENT IDENTITY VERIFICATION COMPLETED USING TWO (2) STANDARD IDENTIFIERS: Name and Date of confirmed by patient verbally and Name and Date of confirmed by identification band FALL SCREENING: Has the patient had 2 falls in the last year or 1 fall with injury or currently using an Ambulatory Assistive Device (Walker, Cane, Wheelchair, Crutches, etc.)? No PATIENT GENDER DATA: .male ALLERGIES: Reviewed and unchanged MEDICATIONS REVIEWED: No PATIENT RELEVANT IMPLANT DATA REVIEWED: Not Applicable PATIENT PRESENTS WITH AN IMPLANTABLE OR ATTACHED LITERACY COACH: No CREATININE: Creatinine Date Value Ref Range Status 10/27/2023 1.32 (H) 0.73 - 1.22 mg/dL Final 10/26/2023 1.34 (H) 0.73 - 1.22 mg/dL Final 10/25/2023 1.64 (H) 0.73 - 1.22 mg/dL Final Estimated Glomerular Filtration Rate Date Value Ref Range Status 10/27/2023 55 (L) >=60 mL/min/1.73m? Final Comment: Estimated Glomerular Filtration Rate (eGFR) is calculated using the 2020 CKD-EPI creatinine equation. This equation utilizes serum creatinine, sex, and age as parameters. The creatinine assay has traceable calibration to isotope dilution-mass spectrometry. Refer to KDIGO guidelines for clinical interpretation. In patients with unstable renal function, e.g. those with acute kidney injury, the eGFR may not accurately reflect actual GFR. eGFR- Date Value Ref Range Status 02/01/2021 57 Final P.O.C.T. RESULTS: N/A November 22, [address] PERFORMED: No IV SITE: Ambulatory: A peripheral IV was started in the Right antecubital site with a Angio cath: 22 gauge. POST EXAM PIV STATUS: Discontinued PROCEDURE TYPE: VQ Scan: 0.8 mCi of Tc99m DTPA was inhaled. 5.8 mCi of Tc99m MAA was administered IV. ADMINISTRATION TIME: 1332/1355 PATIENT DISCHARGED TO: Ambulatory patient, left [place] department area. A Diagnostic radioactive procedure has taken place, with no further precautions necessary other than routine body substance precautions. More information regarding radiation safety can be found using this link: [email or web address] 20Diagnostic%20Nuclear%20Medicine%20Procedures.pdf SIGNATURE: RT Bib(R) PATIENT NAME: Fran Parekh DATE: November 22, 2023 TIME: 2:00 PM [facility]CON[phone] Telephone encounter Note* Telephone Encounter - Pidead Ryan MA - 11/22/2023 8:47 AM EDT Pt requesting refill on eliquis [place] 11/09/23 Piedad Ryan MA [facility]07-24-2024 Miscellaneous Notes* Telephone Encounter - Piedad Ryan MA - 11/22/2023 8:47 AM EDT Pt requesting refill on eliquis Bronson 11/09/23 Piedad Ryan MA documented in this encounterC[facility]-2024 Telephone encounter Note * Telephone Encounter - Sissy Campbell LPN - 11/10/2023 9:48 AM EDT Phoned patient and advised paperwork faxed. Originals mailed to patient and copies forwarded to [employer]. Sissy Campbell LPN [facility]07-12-2024 Miscellaneous Notes* Telephone Encounter - Sissy Campbell LPN - 11/10/2023 9:48 AM EDT Phoned patient and advised paperwork faxed. Originals mailed to patient and copies forwarded to [employer]. Sissy Campbell LPN * Telephone Encounter - Agnes Diaz MD - 11/10/2023 8:37 AM EDT Completed and placed in outbox. * Telephone Encounter - Ree Ram LPN - 11/10/2023 8:14 AM EDT Patient calling said needs done CASSY please or his will have to go to [place] to work. . * Telephone Encounter - Agustín Monroy RN - 11/06/2023 10:36 AM EDT Patient calls with fax number to [facility] in [facility]. Fax number is [phone]. Agustín Monroy RN * Telephone Encounter - Agnes Diaz MD - 11/06/2023 9:50 AM EDT Will review and call when completed. * Telephone Encounter - Sissy Campbell LPN - 11/06/2023 9:23 AM EDT Type of form: FMLA Form received via walk in When form is completed, Patient's to call with fax number. Mail original back to patient afterfaxed and send copy to med records. Patient advised that typically 5-7 days to complete paperwork. Form has been forwarded to Physician Desk: Dr. Carin Campbell LPN documented in this encounterC[facility]07-12-2024 Telephone encounter Note * Telephone Encounter - Agnes Diaz MD - 11/10/2023 8:37 AM EDT Completed and placed in outbox. [facility]07-12-2024 Telephone encounter Note* Telephone Encounter - Ree Ram LPN - 11/10/2023 8:14 AM EDT Patient calling said needs done CASSY please or his will have to go to [place] to work. . [facility]07-11-2024 NoteHNO ID: [id number] Author: VICTOR MANUEL SAVAGE, DO Service: ? Author Type: Physician Type: Progress Notes Filed: 11/09/2023 14:23 Note Text: [facility] STAFF PHYSICIAN NOTE OF PERSONAL INVOLVEMENT IN CARE I have reviewed the history and physical examination obtained and documented by the Resident. I have personally performed a face to face assessment of the patient and have personally participated on the herrera components of the history, exam and medical decision making. I have discussed the case and management of the patient's care. The following comments revise or confirm relevant herrera components of the note. IMPRESSION: 78 year old male with history of HTN, dyslipidemia and central obesity found to have unprovoked acute bilateral pulmonary embolism (submassive, intermediate high risk) treated with medical management who presents for follow up. Presented due to abrupt onset of exertional dizziness with ~ one week of preceding dyspnea. This has since resolved ~2-3 weeks post-discharge. He denies functional limitation but his does note he breathes heavy and is not sure how long this has been going on. His echo has shown increased RV:LV ratio dating back to 10/2020. CTPE does show seemingly acute thrombus without stigmata of chronic PE ; also study shows suggestion of RA pressure overload based on contrast reflux, increased RA/RV size, with PA:Ao ratio of 1:1. Echocardiogram at time of PE shows mild-moderate RV dilation, systolic septal flattening, with RVSP 86. Recommendation: - VQ and repeat echocardiogram in 2-3 months on adequate 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 - if there is persistent suggestion of PH, will pursue RHC +/- additional work up (namely polysomnogram, pulmonary function testing etc) - continue apixaban 5mg BID indefinitely given unprovoked PE - advised to follow up with PCP to update colonoscopy for age related screening - consult to vascular medicine re: consideration for hypercoag work up SIGNATURE: Victor Manuel Savage DO [facility] DATE of SERVICE: 11/09/2023[id number] History of Present illness Narrative* Victor Manuel Savage DO - 11/09/2023 2:17 PM EDT [facility] STAFF PHYSICIAN NOTE OF PERSONAL INVOLVEMENT IN CARE I have reviewed the history and physical examination obtained and documented by the Resident. I have personally performed a face to face assessment of the patient and have personally participated on the herrera components of the history, exam and medical decision making. I have discussed the case and management of the patient's care. The following comments revise or confirm relevant herrera components ofthe note. IMPRESSION: 78 year old male with history of HTN, dyslipidemia and central obesity found to have unprovoked acute bilateral pulmonary embolism (submassive, intermediate high risk) treated with medical managementwho presents for follow up. Presented due to abrupt onset of exertional dizziness with ~ one week of preceding dyspnea. This has since resolved ~2-3 weeks post-discharge. He denies functional limitation but his does note he breathes heavy and is not sure how long this has been going on. His echo has shown increased RV:LV ratio dating back to 10/2020. CTPE does show seemingly acute thrombus without stigmata of chronic PE ; also study shows suggestion of RA pressure overload based on contrast reflux, increased RA/RV size, with PA:Ao ratio of 1:1. Echocardiogram at time of PE shows mild-moderate RV dilation, systolic septal flattening, with RVSP 86. Recommendation: - VQ and repeat echocardiogram in 2-3 months on adequate 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 - if there is persistent suggestion of PH, will pursue RHC +/- additional work up (namely polysomnogram, pulmonary function testing etc) - continue apixaban 5mg BID indefinitely given unprovoked PE - advised to follow up with PCP to update colonoscopy for age related screening - consult to vascular medicine re: consideration for hypercoag work up SIGNATURE: Victor Manuel Savage DO [facility] DATE of SERVICE: 11/09/2023 * Victor Manuel Savage DO - 11/09/2023 11:09 AM EDT Consultation requested by: Marquita Harp MD , my recommendation will be communicated back to the referring provided via shared electronic medical record, fax or [place] mail. Reason for Consultation: Pulmonary HTN, Acute saddle PE. History of Present Illness Fran Parekh is a 78 year old male with a history of MARTIN on CPAP, HTN, CAD, prediabetes, VZV, hypothyroidism, CKDIIIa, pancreatic cyst, lung nodules (lost to follow up) presenting for follow up on pulmonary HTN 2/2 likely acute PE. Had recent hospitalization for unprovoked subacute right lower extremity DVT/saddle PE. Leading up to hospitalization, he felt shortness of breath with exertion for the prior week or so. [place] acute shortness of breath and severe lightheadedness the day of admission so called EMS. Was prevous Past Medical History PAST MEDICAL HISTORY Diagnosis Date Angina at [...] of skin of nose Dr. Chowdary in [place] Stage 3a chronic kidney disease (HCC) Venous insufficiency HTN DM Type 2 Pulmonary Embolism/DVT Lung Nodules Social History Leads sedentary lifestyle getting up from chair to go to the restroom, eat, etc. Swam recreationally until about a year ago. He denies surgery in the last 3 months, trauma, immobilization, travel, family history of clotting disorder. Does fly to [place] about 3 times/year, last trip around [place]. Never smoked, IV, drugs, or alcohol. Family Hx: family history includes Headache in his father and sister; Heart in his mother; Myocardial infarction (age of onset: 64) in his maternal grandfather; Myocardial infarction (age of onset: 74) in his maternal uncle; Myocardial infarction (age of onset: 81) in his mother; No Known Problems in his sister and sister; lung cancer in his father. 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 Sometime investigated asbestos but never had to remove or work with it. REVIEW OF SYSTEMS: November 09, 2023 11:09 AM Constitutional: (-) Fever (-) Chills (-) Drenching night Sweats (-) New headaches (-) Long bone pain (-) Unexplained Weight Loss (-) Fatigue Respiratory: (-) Breathless in recumbent position relieved by sitting or standing (-)Hemoptysis (-) Shortness of Breath (-) Cough (-) Wheezing (+) Pets (cats and dog) (-) mold/mildew (-) Water damage (-) Down pillow/Comforter (-) Sauna/ Hot steam showers (-) Snoring Cardiovascular: (-) elevate head of the bed with (-) Night time awakening with gasping for air (+) Swelling of Ankles Rheumatological: (+) Rashes (Shingles) (-) Dry eyes (-) Dry mouth (-) Finger tips change color with cold weather (Raynaud's) Review of system completed by Avril Pham DO. Reviewed by Dr. Savage. PHYSICAL EXAM VITAL SIGNS: BP 141/84 Pulse (!) 55 Ht 182.9 cm (6') Wt 128.8 kg (284 lb) SpO2 96% BMI 38.52 kg/m GENERAL: alert and active in no apparent distress LUNGS: Good inspiratory effort. Breathing is unlabored on room air. CARDIOVASCULAR : RRR, radial pulses are 2+ bilaterally, Pedal Edema: ++ Previous diagnostic tests include Chest CT: CT PE during hospitalization demonstrated subacute saddle PE, a 9.4mm lobular nodule in RML favored to be scarring. Along with probable scarring of lung bases. Echocardiogram: Consistent with severe pulmonary HTN at time of hospitalization DVT US lower extermities: Showed proximal and distal RLE DVT. Impression: (I27.29) Other secondary pulmonary hypertension (HCC) (primary encounter diagnosis) (Z86.711) History of pulmonary embolism Hx of acute PE with findings of RLE DVT as well. Cardiac imaging significant for severe pulm HTN and saddle PE. As patient is saturating well on room air since discharge with improved lightheadednessand shortness of breath, I believe he will be appropriate for reevaluation after at least 3 months of therapeutic 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 therapy. Will need further follow up with repeat echo and V/Q scan toreassess heart function after being on Eliquis. Does have hx of lung nodules lost to follow up. No personal or family hx of clotting disorder. Needs PCP follow up for updated appropriate cancer screenings. Further assessment for hypercoagulability will be needed given unprovoked nature of PE. Previous PET done for pancreatic mass confirming cyst. Plan: - Recommend updated colonoscopy and other appropriate cancer screenings per PCP - Recommend repeat Chest CT (for lung nodule) in one year - Will order V/Q Scan and Echo before visit in December - Vascular medicine consult given unprovoked nature of RUE DVT and saddle PE - Continue lifelong anti-coagulation Avril Pham DO Cc: Marquita Harp and Agnes Diaz documented in this encounterC[facility]-2024 Instructions* Patient Instructions* Avril Pham DO - 11/09/2023 12:09 PM EDT - Needs colonoscopy - CASSY follow up with vascular medicine for clots - V/Q scan and echo before 2 month follow up with me - Repeat imaging for lung nodule in a year documented in this encounterC[facility]07-11-2024 NoteHNO ID: [id number] Author: VICTOR MANUEL SAVAGE DO Service: ? Author Type: Physician Type: Progress Notes Filed: 11/09/2023 14:23 Note Text: Consultation requested by: Marquita Harp MD , my recommendation will be communicated back to the referring provided via shared electronic medical record, fax or US mail. Reason for Consultation: Pulmonary HTN, Acute saddle PE. History of Present Illness Fran Parekh is a 78 year old male with a history of MARTIN on CPAP, HTN, CAD, prediabetes, VZV, hypothyroidism, CKDIIIa, pancreatic cyst, lung nodules (lost to follow up) presenting for follow up on pulmonary HTN 2/2 likely acute PE. Had recent hospitalization for unprovoked subacute right lower extremity DVT/saddle PE. Leading up to hospitalization, he felt shortness of breath with exertion for the prior week or so. [place] acute shortness of breath and severe lightheadedness the day of admission so called EMS. Was prevous Past Medical History PAST MEDICAL HISTORY Diagnosis Date Angina at [...] of skin of nose Dr. Chowdary in [place] Stage 3a chronic kidney disease (HCC) Venous insufficiency HTN DM Type 2 Pulmonary Embolism/DVT Lung Nodules Social History Leads sedentary lifestyle getting up from chair to go to the restroom, eat, etc. Swam recreationally until about a year ago. He denies surgery in the last 3 months, trauma, immobilization, travel, family history of clotting disorder. Does fly to [place] about 3 times/year, last trip around [place]. Never smoked, IV, drugs, or alcohol. Family Hx: family history includes Headache in his father and sister; Heart in his mother; Myocardial infarction (age of onset: 64) in his maternal grandfather; Myocardial infarction (age of onset: 74) in his maternal uncle; Myocardial infarction (age of onset: 81) in his mother; No Known Problems in his sister and sister; lung cancer in his father. 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 Sometime investigated asbestos but never had to remove or work with it. REVIEW OF SYSTEMS: November 09, 2023 11:09 AM Constitutional: (-) Fever (-) Chills (-) Drenching night Sweats (-) New headaches (-) Long bone pain (-) Unexplained Weight Loss (-) Fatigue Respiratory: (-) Breathless in recumbent position relieved by sitting or standing (-)Hemoptysis (-) Shortness of Breath (-) Cough (-) Wheezing (+) Pets (cats and dog) (-) mold/mildew (-) Water damage (-) Down pillow/Comforter (-) Sauna/ Hot steam showers (-) Snoring Cardiovascular: (-) elevate head of the bed with (-) Night time awakening with gasping for air (+) Swelling of Ankles Rheumatological: (+) Rashes (Shingles) (-) Dry eyes (-) Dry mouth (-) Finger tips change color with cold weather (Raynaud's) Review of system completed by Avril Pham DO. Reviewed by Dr. Savage. PHYSICAL EXAM VITAL SIGNS: BP 141/84 Pulse (!) 55 Ht 182.9 cm (6') Wt 128.8 kg (284 lb) SpO2 96% BMI 38.52 kg/m? GENERAL: alert and active in no apparent distress LUNGS: Good inspiratory effort. Breathing is unlabored on room air. CARDIOVASCULAR : RRR, radial pulses are 2+ bilaterally, Pedal Edema: ++ Previous diagnostic tests include Chest CT: CT PE during hospitalization demonstrated subacute saddle PE, a 9.4mm lobular nodule in RML favored to be scarring. Along with probable scarring of lung bases. Echocardiogram: Consistent with severe pulmonary HTN at time of hospitalization DVT US lower extermities: Showed proximal and distal RLE DVT. Impression: (I27.29) Other secondary pulmonary hypertension (HCC) (primary encounter diagnosis) (Z86.711) History of pulmonary embolism Hx of acute PE with findings of RLE DVT as well. Cardiac imaging significant for severe pulm HTN and saddle PE. As patient is saturating well on room air since discharge with improved lightheadedness and shortness of breath, I believe he will be appropriate for reevaluation after at least 3 months of therapeutic 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 therapy. Will need further follow up with repeat echo and V/Q scan to reassess he (more content not included)...[id number] Telephone encounter Note* Telephone Encounter - Agustín Monroy RN - 11/06/2023 10:36 AM EDT Patient calls with fax number to [facility] in [facility]. Fax number is [phone]. Agustín Monroy RN [facility]07-08-2024 NoteHNO ID: [id number] Author: LEONILA TRIANA RN Service: ? Author Type: Registered Nurse Type: Progress Notes Filed: 11/06/2023 10:31 Note Text: TRANSITION CARE MANAGEMENT (TCM) FOLLOW-UP NOTE Provider Action/FYI 11/08 pulm appt spoke to patient - denies sob states he has a pulm appt this week and will then need a reorder of eliquis - patient wants to wait to see if pulm changes dose before reorder denies need for any other refills at this time patient was unaware that order was placed for outpatient PT - he will call this week to schedule HHC - deemed patient not appropriate for HHC nursing or PT - patient is not homebound per note . Patient identified by name and date of : YES Spoke to patient Discharge Network Status: In-Network Discharge Summary: Pt discharged from [facility] on 10/27/23. Admitted for: complaint of SOB and dizziness and was found to have saddle PE and right LE DVT Concerns: see above [employer] Operator plan for next outreach: Will follow up weekly for 30 days post discharge ANTONIO Education Ordered -: No antonio previously placed for patient prior to this encounter Leonila Triana RN November 06, 2023 10:24 [facility]07-08-2024 History of Present illness Narrative* Leonila Triana RN - 11/06/2023 10:24 AM EDT TRANSITION CARE MANAGEMENT (TCM) FOLLOW-UP NOTE Provider Action/11/08 pulm appt spoke to patient - denies sob states he has a pulm appt this week and will then need a reorder of eliquis - patient wants to waitto see if pulm changes dose before reorder denies need for any other refills at this time patient was unaware that order was placed for outpatient PT - he will call this week to schedule HHC - deemed patient not appropriate for C nursing or PT - patient is not homebound per note . Patient identified by name and date of : YES Spoke to patient Discharge Network Status: In-Network Discharge Summary: Pt discharged from [facility] on 10/27/23. Admitted for: complaint of SOB and dizziness and was found to have saddle PE and right LE DVT Concerns: see above [employer] Operator plan for next outreach: Will follow up weekly for 30 days post discharge ANTONIO Education Ordered -: No antonio previously placed for patient prior to this encounter Leonila Triana RN November 06, 2023 10:24 AM documented in this encounterC[facility]-20[facility] Telephone encounter Note * Telephone Encounter - Agnes Diaz MD - 11/06/2023 9:50 AM EDT Will review and call when completed. [facility]07-08-2024 Telephone encounter Note* Telephone Encounter - Sissy Campbell LPN - 11/06/2023 9:23 AM EDT Type of form: FMLA Form received via walk in When form is completed, Patient's to call with fax number. Mail original back to patient afterfaxed and send copy to med records. Patient advised that typically 5-7 days to complete paperwork. Form has been forwarded to Physician Desk: Dr. Carin Campbell LPN [facility]07-08-2024 NotePatient Outreach ([facility]) FRAN PAREKH ([id number]) 1945 M Date Time Provider Department 11/06/23 LEONILA TRIANA [facility] During your visit today, we recorded the following information about you: Leonila Triana, RN 11/06/2023 10:31 AM Signed TRANSITION CARE MANAGEMENT (TCM) FOLLOW-UP NOTE Provider Action/FYI 11/08 pulm appt spoke to patient - denies sob states he has a pulm appt this week and will then need a reorder of eliquis - patient wants to wait to see if pulm changes dose before reorder denies need for any other refills at this time patient was unaware that order was placed for outpatient PT - he will call this week to schedule HHC - deemed patient not appropriate for C nursing or PT - patient is not homebound per note . Patient identified by name and date of : YES Spoke to patient Discharge Network Status: In-Network Discharge Summary: Pt discharged from [facility] on 10/27/23. Admitted for: complaint of SOB and dizziness and was found to have saddle PE and right LE DVT Concerns: see above Laste[employer] Operator plan for next outreach: Will follow up weekly for 30 days post discharge ANTONIO Education Ordered -: No antonio previously placed for patient prior to this encounter Leonila Triana RN November 06, 2023 10:24 AM Allergies As of Date: 11/06/2023 Noted Allergy Reaction NORVASC (AMLODIPINE BESYLATE) 09/14/2016 7 - Swelling Comments: pedal edema VENOM-WASP 01/14/2005 7 - Swelling ZITHROMAX (AZITHROMYCIN) 01/14/2005 9 - Itching Date Reviewed: 10/30/2023 Reviewed by: Carmela Trevizo O[facility] - Fully Assessed Reason for Visit: Transition Of Care [4074] Cmt: tcm d/c follow up Prescriptions as of 11/06/2023 - apixaban (ELIQUIS) 5 mg tab(s) Take 2 tablets (10 mg) by mouth twice daily for 6 days. Then take 1 tablet (5 mg) by mouth twice daily - metoprolol succinate ER (TOPROL XL) 50 mg 24 hr tablet Take 1 tablet by mouth once daily. - lisinopril (ZESTRIL) 40 mg tablet Take 1 tablet by mouth once daily. - hydroCHLOROthiazide 25 mg tablet Take 1 tablet by mouth once daily. - gabapentin (NEURONTIN) 300 mg capsule Take 300 mg by mouth daily at bedtime. - atorvastatin (LIPITOR) 40 mg tablet Take 1 tablet by mouth once daily. - levothyroxine (SYNTHROID) 125 mcg tablet TAKE 1 TABLET BY MOUTH EVERY DAY ON AN EMPTY STOMACH FOR THYROID - amoxicillin (POLYMOX, AMOXIL) 500 mg capsule Take four capsules one hour before dental procedure. - CPAP AutoPAP [id number]. Mask per preference, tubing, filters, humidity. [employer] Supplies. Dx: G47.33. Fax 30 day compliance report to [phone]. - CPAP Please provide mask fitting. Pt [...] one(1) tablet daily. Facility-Administered Medications as of 11/06/2023 - perflutren lipid microspheres 1.3 mL in NaCl (PF) 0.9% 10 mL injection (DEFINITY) - sodium chloride 0.9 % (flush) 10 mL (BD POSIFLUSH) Problem List As Of Date 11/06/2023 Noted Resolved Primary hypertension [I10] 03/11/2005 Hypertrophy of prostate with urinary obstructio*06/01/2006 BLADDER NECK OBSTRUCTION [N32.0] 06/01/2006 Plantar fascial fibromatosis [M72.2] 11/02/2006 05/09/2014 Ingrowing nail [L60.0] 11/26/2007 05/09/2014 Hypothyroidism [E03.9] 03/25/2009 Open fracture of distal phalangeal tuft [[id number]*08/31/2011 05/09/2014 Internal derangement of right knee [M23.91] [...] ASHD (arteriosclerotic heart disease) [I25.10] 09/14/2016 Hyperlipidemia [E78.5] 09/14/2016 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 [facility]07-03-2024 Miscellaneous Notes* Telephone Encounter - Malachi Castillo RN - 11/01/2023 2:34 PM EDT Notified Polina of PT order. * Telephone Encounter - Agnes Diaz MD - 11/01/2023 12:57 PM EDT Referral order to PT for unsteady gait placed as requested. * Telephone Encounter - Carli Bowen RN - 11/01/2023 12:48 PM EDT Polina BONILLAadoption coordinator calls and reports that she went out to see patient today. Patient does not need home health services of nursing and PT. Patient is not home bound and is planning to go back to work. Polina asking if provider can write order for outpatient physical therapy? Please review and advise, Carli Bowen RN documented in [facility] Telephone encounter Note * Telephone Encounter - Agnes Diaz MD - 11/01/2023 12:57 PM EDT Referral order to PT for unsteady gait placed as requested. [facility]07-03-2024 Telephone encounter Note* Telephone Encounter - Carli Bowen RN - 11/01/2023 12:48 PM EDT Polina BONILLAadoption coordinator calls and reports that she went out to see patient today. Patient does not need home health services of nursing and PT. Patient is not home bound and is planning to go back to work. Polina asking if provider can write order for outpatient physical therapy? Please review and advise, Carli Bowen RN [facility]07-02-2024 Telephone encounter Note* Telephone Encounter - Carmela Trevizo OCCA - 10/31/2023 8:36 AM EDT LIU Murcia who is informed of below. ADAN Stewart [facility]07-02-2024 Miscellaneous Notes* Telephone Encounter - Carmela Trevizo OCCA - 10/31/2023 8:36 AM EDT LIU Murcia who is informed of below. ADAN Stewart * Telephone Encounter - Agnes Diaz MD - 10/31/2023 8:20 AM EDT Yes, will sign and follow. * Telephone Encounter - Leonila Winslow LPN - 10/31/2023 8:13 AM EDT Divina with [facility] calling to see if you will follow and sign for home careorders for [facility] and PT. DX hypertension. Pt was d/c from [facility] on 10-27-23. Please advise Divina. Leonila Winslow LPN documented in this [facility] Telephone encounter Note * Telephone Encounter - Agnes Diaz MD - 10/31/2023 8:20 AM EDT Yes, will sign and follow. [facility]07-02-2024 Telephone encounter Note* Telephone Encounter - Leonila Winslow LPN - 10/31/2023 8:13 AM EDT Divina with [facility] calling to see if you will follow and sign for home careorders for [facility] and PT. DX hypertension. Pt was d/c from [facility] on 10-27-23. Please advise Divina. Leonila Winslow LPN [facility]07-01-2024 NoteHNO ID: [id number] Author: LEONILA TRIANA, CHAD Service: ? Author Type: Registered Nurse Type: Progress Notes Filed: 11/06/2023 10:16 Note Text: TRANSITIONAL CARE MANAGEMENT (TCM) COMMUNITY MONITORING PROGRAM Provider Action/FYI: Value-Based TCM Initial - No Text spoke to patient - states sob had improved had pcp appt today -see note review of meds with pcp no refills needed talked to patient about ordered compression stocking - states he has worm them in the past and he does not care of them - states they are too tight and too hard to get on - advised he get measured for correct fitting - suggested drug marleny - patient states has has done that in the past reviewed the 2 sets of dosing for eliquis - the first 6 days and then after patient has not heard from [facility] - states he will call tomorrow afternoon if no contact first SUMMARY: Discharge Network Status: In-Network Discharge Pt discharged from [facility] on 10/27/23. Admitted for: complaint of SOB and dizziness and was found to have saddle PE and right LE DVT Contact made with patient: Yes Hi my name is Leonila Triana RN and I am calling from the [facility] on behalf of your PCP, Agnes Diaz MD I understand you were recently in the hospital so I am calling to check in with you to ensure you are feeling well now that you're home. May I ask you a few questions related to your hospital stay and well-being? Yes Contact with patient post discharge, spoke to patient. Patient identified by name and . Do you feel your health is BETTER, WORSE, or the SAME since leaving the hospital? Better ACTION TAKEN: Patient indicated symptoms are better or same, no action required. Continue outreach. MEDICATIONS: Many patients have questions or concerns about their medications once they are home. Do you have any questions about taking your medications or which medication you should be on? No Do you need any medication refills at this time, including any of the medications you might take only when needed? No ACTION TAKEN: No action required For RNs or Pharmacy completing outreach ONLY, was a medication review completed? No reviewed at pcp appt today per patient SOCIAL: We would like to make sure you have what you need so that your basics needs are met - including your personal safety, food, housing and medications. Would you like to speak with a social work child care team lead to help give you support for any of these needs? No It can be normal to feel anxious or down during a time like this. Would you like to talk to a mental health professional about how you have been feeling? No ACTION TAKEN: No action taken DISCHARGE INTRUCTIONS: Your discharge instructions / After Visit Summary (AVS) are important in guiding you through the recovery process. Do you have any questions related to your discharge instructions? No Do you have all the necessary equipment and supplies at home? Yes ACTION TAKEN: No action required I would like to help you schedule a hospital follow-up virtual or telephone visit with your PCP. This is a great way for you to connect with your provider to ensure you have safely transitioned home. If you are agreeable, I will send your request to a guide dog instructor who will contact and assist you with that appointment. This will give you an opportunity to ask any questions or address any concerns you may have with your PCP. Inform the patient that if they have any questions or concerns prior to that appointment, to call their PCP's office right away. ACTION TAKEN: No action required, patient already has an appointment scheduled. Your doctor would like us to remind you of the recommendations regarding the coronavirus (Covid19) outbreak: Avoid public places as much as possible. Avoid close contact (within 6 feet) with others you don?t live with, especially if they are sick. Stay home if you are sick. Wash your hands regularly for at least 20 seconds with soap and water. Wear a cloth mask in public places to help reduce community spread. Do not go to your Doctor?s office unless instructed to do so. For any non-emergency symptoms, call your Doctor?s office to get instructions on how to manage (we might recommend a telephone or virtual visit). For emergency symptoms, proceed to Emergency Department as usual but inform them of cough and fever symptoms CASSY if present (or call on the way if possible). ANTONIO Education Ordered -: Yes Leonila Triana RN October 30, 2023 4:12 [facility]07-01-2024 History of Present illness Narrative* Leonila Triana, CHAD - 10/30/2023 4:05 PM EDT TRANSITIONAL CARE MANAGEMENT (TCM) COMMUNITY MONITORING PROGRAM Provider Action/FYI: Value-Based TCM Initial - No Text spoke to patient - states sob had improved had pcp appt today -see note review of meds with pcp no refills needed talked to patient about ordered compression stocking - states he has worm them in the past and he does not care of them - states they are too tight and too hard to get on - advised he get measured for correct fitting - suggested drug marleny - patient states has has done that in the past reviewed the 2 sets of dosing for eliquis - the first 6 days and then after patient has not heard from [facility] - states he will call tomorrow afternoon if no contact first SUMMARY: Discharge Network Status: In-Network Discharge Pt discharged from [facility] on 10/27/23. Admitted for: complaint of SOB and dizziness and was found to have saddle PE and right LE DVT Contact made with patient: Yes Hi my name is Leonila Triana RN and I am calling from the [facility] on behalf of your PCP, Agnes Diaz MD I understand you were recently in the hospital so I am calling to check in with you to ensure you are feeling well now that you're home. May I ask you a few questions related to your hospital stay and well-being? Yes Contact with patient post discharge, spoke to patient. Patient identified by name and . Do you feel your health is BETTER, WORSE, or the SAME since leaving the hospital? Better ACTION TAKEN: Patient indicated symptoms are better or same, no action required. Continue outreach. MEDICATIONS: Many patients have questions or concerns about their medications once they are home. Do you have any questions about taking your medications or which medication you should be on? No Do you need any medication refills at this time, including any of the medications you might take only when needed? No ACTION TAKEN: No action required For RNs or Pharmacy completing outreach ONLY, was a medication review completed? No reviewed at pcp appt today per patient SOCIAL: We would like to make sure you have what you need so that your basics needs are met - including your personal safety, food, housing and medications. Would you like to speak with a social work child care team lead to help give you support for any of these needs? No It can be normal to feel anxious or down during a time like this. Would you like to talk to a mental health professional about how you have been feeling? No ACTION TAKEN: No action taken DISCHARGE INTRUCTIONS: Your discharge instructions / After Visit Summary (AVS) are important in guiding you through the recovery process. Do you have any questions related to your discharge instructions? No Do you have all the necessary equipment and supplies at home? Yes ACTION TAKEN: No action required I would like to help you schedule a hospital follow-up virtual or telephone visit with your PCP. This is a great way for you to connect with your provider to ensure you have safely transitioned home.If you are agreeable, I will send your request to a guide dog instructor who will contact and assist you with that appointment. This will give you an opportunity to ask any questions or address any concerns youmay have with your PCP. Inform the patient that if they have any questions or concerns prior to that appointment, to call their PCP's office right away. ACTION TAKEN: No action required, patient already has an appointment scheduled. Your doctor would like us to remind you of the recommendations regarding the coronavirus (Covid19) outbreak: Avoid public places as much as possible. Avoid close contact (within 6 feet) with others you don t live with, especially if they are sick. Stay home if you are sick. Wash your hands regularly for at least 20 seconds with soap and water. Wear a cloth mask in public places to help reduce community spread. Do not go to your Doctor s office unless instructed to do so. For any non- emergency symptoms, call your Doctor s office to get instructions on how to manage (we might recommend a telephone or virtualvisit). For emergency symptoms, proceed to Emergency Department as usual but inform them of cough and fever symptoms CASSY if present (or call on the way if possible). ANTONIO Education Ordered -: Yes Leonila Triana RN October 30, 2023 4:12 PM documented in this encounterC[facility] NoteHNO ID: [id number] Author: AGNES DIAZ MD Service: ? Author Type: Physician Type: Progress Notes Filed: 10/30/2023 14:50 Note Text: Chief Complaint Patient presents with: Hospital F/U: Seen for PE and respiratory failure, d/c Thursday 10/26, patient states respiratory status has improved HPI Fran Parekh is a 78 year old male who presents here today for Above Complaints. Patient's hospital discharge summary was not completed at the time of this appointment. Patient admitted to [facility] from 10/22 to 10/26 for initial complaint of SOB and dizziness and was found to have saddle PE and right LE DVT requiring hospitalization and ICU admission. Initially treated with heparin gtt and coumadin and was then transitioned to Eliquis prior to discharge. Recommended he f/u with our office today as scheduled and was referred to pulmonology which was scheduled for 11/08. No obvious etiology for his PE and DVT identified in the hospital. Today, he states that he has been taking Eliquis as prescribed without bleeding or bruising. Denies chest pain, SOB, palpitations, new leg swelling, fever/chills. DVT and PE appear to be unprovoked. He denies surgery in the last 3 months, trauma, immobilization, travel, family history of clotting disorder. COVID was negative in the hospital and he denies URI symptoms in the last couple of months. Patient requesting handicap placard due to SOB with walking more than 200 feet. Patient is tolerating PO diet. Able to perform ADLs. Was given order for home PT/OT who have not been out yet. Using cane for ambulation which he feels steady with. Denies falls. Using CPAP on a nightly basis. Past medical history, appointments, medications, allergies reviewed. Previous Medical History PAST MEDICAL HISTORY Diagnosis Date Angina at [...] of skin of nose Dr. Chowdary in [place] Stage 3a chronic kidney disease (HCC) Venous insufficiency Previous Surgical History PAST SURGICAL HISTORY Procedure Laterality Date ARTHRP ACETBLR/PROX FEM PROSTC AGRFT/ALGRFT Right 06/03/2019 Hip replacement, total COLONOSCOPY FLX DX W/COLLJ SPEC WHEN PFRMD 04/21/11 Repeat 10 [id number] LASER GREENLIGHT prostate, [place] NEUROPLASTY AND/TRANSPOS MEDIAN NRV CARPAL TUNNE Left 01/17/2020 Left carpal tunnel release NEUROPLASTY AND/TRANSPOS MEDIAN NRV CARPAL TUNNE Right 03/04/2020 Right carpal tunnel release RPR UMBILICAL HRNA 5 YRS/> REDUCIBLE TONSILLECTOMY PRIMARY/SECONDARY Tonsillectomy Family History FAMILY HISTORY Problem Relation Age of Onset Heart Mother other (Myocardial infarction) Mother 81 Headache Father MIGRAINES other (lung cancer) Father DECEACED AGE 86 YR LUNG CA No Known Problems Sister No Known Problems Sister Headache Sister MIGRAINES other (Myocardial infarction) Maternal Grandfather 64 other (Myocardial infarction) Maternal Uncle 74 Patient Allergies ALLERGIES Allergen Reactions Norvasc [Amlodipine* Swelling pedal edema Venom-Wasp Swelling Zithromax [Azithrom* Itching Current Medications Current Outpatient Medications on File Prior to Visit Medication Sig apixaban (ELIQUIS) 5 mg tab(s) Take 2 tablets (10 mg) by mouth twice daily for 6 days. Then take 1 tablet (5 mg) by mouth twice daily metoprolol succinate ER (TOPROL XL) 50 mg 24 hr tablet Take 1 tablet by mouth once daily. lisinopril (ZESTRIL) 40 mg tablet Take 1 tablet by mouth once daily. hydroCHLOROthiazide 25 mg tablet Take 1 tablet by mouth once daily. gabapentin (NEURONTIN) 300 mg capsule Take 300 mg by mouth daily at bedtime. atorvastatin (LIPITOR) 40 mg tablet Take 1 tablet by mouth once daily. levothyroxine (SYNTHROID) 125 mcg tablet TAKE 1 TABLET BY MOUTH EVERY DAY ON AN EMPTY STOMACH FOR THYROID amoxicillin (POLYMOX, AMOXIL) 500 mg capsule Take four capsules one hour before dental procedure. CPAP AutoPAP [id number]. Mask per preference, tubing, filters, humidity. [employer] Supplies. Dx: G47.33. Fax 30 day compliance report to [phone]. CPAP Please provide mask fitting. Pt with subjective and some degree objective leaks. Prefers nasal type mask (more content not included)...[facility]07-01-2024 History of Present illness Narrative* Agnes Diaz MD - 10/30/2023 1:18 PM EDT Chief Complaint Patient presents with: Hospital F/U: Seen for PE and respiratory failure, d/c Thursday 10/26, patient states respiratory status has improved HPI Fran Parekh is a 78 year old male who presents here today for Above Complaints. Patient's hospital discharge summary was not completed at the time of this appointment. Patient admitted to [facility] from 10/22 to 10/26 for initial complaint of SOB and dizziness and was found to have saddle PE and right LE DVT requiring hospitalization and ICU admission. Initially treated with heparin gtt and coumadin and was then transitioned to Eliquis prior to discharge. Recommended he f/u with our office today as scheduled and was referred to pulmonology which was scheduled for 11/08. No obvious etiology for his PE and DVT identified in the hospital. Today, he states that he has been taking Eliquis as prescribed without bleeding or bruising. Denieschest pain, SOB, palpitations, new leg swelling, fever/chills. DVT and PE appear to be unprovoked. He denies surgery in the last 3 months, trauma, immobilization,travel, family history of clotting disorder. COVID was negative in the hospital and he denies URI symptoms in the last couple of months. Patient requesting handicap placard due to SOB with walking more than 200 feet. Patient is tolerating PO diet. Able to perform ADLs. Was given order for home PT/OT who have not been out yet. Using cane for ambulation which he feels steady with. Denies falls. Using CPAP on a nightly basis. Past medical history, appointments, medications, allergies reviewed. Previous Medical History PAST MEDICAL HISTORY Diagnosis Date Angina at [...] of skin of nose Dr. Chowdary in [place] Stage 3a chronic kidney disease (HCC) Venous insufficiency Previous Surgical History PAST SURGICAL HISTORY Procedure Laterality Date ARTHRP ACETBLR/PROX FEM PROSTC AGRFT/ALGRFT Right 06/03/2019 Hip replacement, total COLONOSCOPY FLX DX W/COLLJ SPEC WHEN PFRMD 04/21/11 Repeat 10 [id number] LASER GREENLIGHT prostate, [place] NEUROPLASTY &/TRANSPOS MEDIAN NRV CARPAL TUNNE Left 01/17/2020 Left carpal tunnel release NEUROPLASTY &/TRANSPOS MEDIAN NRV CARPAL TUNNE Right 03/04/2020 Right carpal tunnel release RPR UMBILICAL HRNA 5 YRS/> REDUCIBLE TONSILLECTOMY PRIMARY/SECONDARY <AGE 12 Tonsillectomy Family History FAMILY HISTORY Problem Relation Age of Onset Heart Mother other (Myocardial infarction) Mother 81 Headache Father MIGRAINES other (lung cancer) Father DECEACED AGE 86 YR LUNG CA No Known Problems Sister No Known Problems Sister Headache Sister MIGRAINES other (Myocardial infarction) Maternal Grandfather 64 other (Myocardial infarction) Maternal Uncle 74 Patient Allergies ALLERGIES Allergen Reactions Norvasc [Amlodipine* Swelling pedal edema Venom-Wasp Swelling Zithromax [Azithrom* Itching Current Medications Current Outpatient Medications on File Prior to Visit Medication Sig apixaban (ELIQUIS) 5 mg tab(s) Take 2 tablets (10 mg) by mouth twice daily for 6 days. Then take 1 tablet (5 mg) by mouth twice daily metoprolol succinate ER (TOPROL XL) 50 mg 24 hr tablet Take 1 tablet by mouth once daily. lisinopril (ZESTRIL) 40 mg tablet Take 1 tablet by mouth once daily. hydroCHLOROthiazide 25 mg tablet Take 1 tablet by mouth once daily. gabapentin (NEURONTIN) 300 mg capsule Take 300 mg by mouth daily at bedtime. atorvastatin (LIPITOR) 40 mg tablet Take 1 tablet by mouth once daily. levothyroxine (SYNTHROID) 125 mcg tablet TAKE 1 TABLET BY MOUTH EVERY DAY ON AN EMPTY STOMACH FOR THYROID amoxicillin (POLYMOX, AMOXIL) 500 mg capsule Take four capsules one hour before dental procedure. CPAP AutoPAP [id number]. Mask per preference, tubing, filters, humidity. [employer] Supplies. Dx: G47.33. Fax 30 day compliance report to [phone]. CPAP Please provide mask fitting. Pt with subjective and some degree objective leaks. Prefers nasaltype mask. Thank you. DME = [employer] acetaminophen 650 mg CR tablet Take 650 mg by mouth as needed. aspirin, enteric coated (ASPIRIN, ENTERIC COATED) 81 mg EC tablet Take 81 mg by mouth once daily. MULTIVITAMIN,TX-MINERALS ORAL TAB Take one(1) tablet daily. Current Facility-Administered Medications on File Prior to Visit Medication perflutren lipid microspheres 1.3 mL in NaCl (PF) 0.9% 10 mL injection (DEFINITY) sodium chloride 0.9 % (flush) 10 mL (BD POSIFLUSH) Social History Social History Tobacco Use Smoking status: Never Smokeless tobacco: Never Vaping Use Vaping Use: Never used Substance Use Topics Alcohol use: No Drug use: No Review of Symptoms REVIEW OF SYSTEMS GENERAL: No weight loss, malaise or fevers RESPIRATORY: Negative for cough, hemoptysis, wheezing, COPD, dyspnea or shortness of breath CARDIOVASCULAR: Negative for chest pain, leg swelling, hypertension, CHF or palpitations GI: No nausea, vomiting, or diarrhea SKIN: Negative for lesions, rash, and itching EXAM: BP 138/86 Pulse 72 Resp 20 Wt 128.8 kg (284 lb) SpO2 95% BMI 38.52 kg/m General Appearance: Well appearing, alert, in no acute distress, well-hydrated, well nourished.. Skin: bruising on arms from IV sites. . Lungs: Lungs clear to auscultation. No wheezing, rhonchi, rales.. Heart: RRR without murmur, gallop, or rubs. No ectopy. Abdomen: Normal abdominal exam, Abdomen soft, non-tender. Bowel sounds normal. No masses, organomegaly. Extremities: Right leg swollen compared to left with 1+ edema to knee. Non tender to palpation. No erythema. Pulses: 1+ PT and DP pulses bilaterally. Health Maintenance List BP Controlled (<130/80) due on 07/30/2021 Advance Directive Discussion Never done Behavioral Health Screening Never done Covid-19 Vaccine( season) due on 09/13/2023 LDL Cholesterol due on 11/03/2023 Influenza Vaccine(1) due on 12/31/2023 Annual PCP Team Chronic Disease Visit due on 07/31/2024 Hemoglobin/Hematocrit due on 10/25/2024 Serum Creatinine due on 10/26/2024 Diabetes Screening due on 10/26/2026 DTaP,Tdap,Td Vaccine(3 - Td or Tdap) due on 07/31/2029 RSV Vaccine Completed Shingrix Vaccine Completed Pneumococcal Vaccine: 65+ Completed Colorectal Cancer Screening Discontinued ASSESSMENT/PLAN: 1. Acute saddle pulmonary embolism, unspecified whether acute cor pulmonale present (HCC) - ICD9: 415.13, ICD10: I26.92 (primary diagnosis) New finding of saddle PE without known cause. Doing well on Eliquis so far without significant chest pain or worsening SOB. Will have him continue on current regimen and f/u with pulmonology as scheduled. Red flags for re- assessment reviewed with patient in detail. Will f/u recommendations and consi irma anticoag panel once he is off of the blood thinner. - PARKING FOR HANDICAPPED 2. Pulmonary HTN (HCC) - ICD9: 416.8, ICD10: I27.20 Using CPAP on a nightly basis. F/u with pulmonology as scheduled. - PARKING FOR HANDICAPPED 3. Acute deep vein thrombosis (DVT) of proximal vein of right lower extremity (HCC) - ICD9: 453.41,ICD10: I82.4Y1 Unprovoked. Start wearing compression stocking for right leg swelling with DVT on a daily basis. Continue 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 for at least 3-6 months. - PARKING FOR HANDICAPPED - COMPRESSION STOCKINGS 4. Essential hypertension, benign - ICD9: 401.1, ICD10: I10 - Controlled - Continue current medications - Recommend home blood pressure monitoring, to bring results to next visit - Encouraged sodium restriction, DASH or Mediterranean diet - Recommend regular aerobic exercise 5. MARTIN (obstructive sleep apnea) - ICD9: 327.23, ICD10: G47.33 Symptoms controlled with nightly CPAP. Continue as prescribed. 6. Right leg swelling - ICD9: 729.81, ICD10: M79.89 2/2 DVT see above. I spent a total of 40 minutes on the date of the service which included preparing to see the patient, [id number] patient care, completing clinical documentation, obtaining and/or reviewing separately obtained history, performing a medically appropriate examination, counseling and educating the pat ient/family/caregiver, and ordering medications, tests, or procedures. Agnes Diaz MD [facility]* Diagnosis Stage 3 chronic kidney disease, unspecified whether stage 3a or 3b CKD (HCC)- Primary documented in this encounter [facility]07-01[facility] NotePatient Outreach ([facility]) FRAN PAREKH ([id number]) 1945 M Date Time Provider Department 10/30/23 [place] [facility] [place] visit today, we recorded the following information about you: Allergies As of Date: 10/30/2023 Noted Allergy Reaction NORVASC (AMLODIPINE BESYLATE) 09/14/2016 7 - Swelling Comments: pedal edema VENOM-WASP 01/14/2005 7 - Swelling ZITHROMAX (AZITHROMYCIN) 01/14/2005 9 - Itching Date Reviewed: 10/27/2023 Reviewed by: Virgilio Bee, RN - Fully Assessed Reason for Visit: Transition Of Care [1053] Cmt: Value-Based TCM Initial - No Text Prescriptions as of 10/30/2023 - apixaban (ELIQUIS) 5 mg tab(s) Take 2 tablets (10 mg) by mouth twice daily for 6 days. Then take 1 tablet (5 mg) by mouth twice daily - metoprolol succinate ER (TOPROL XL) 50 mg 24 hr tablet Take 1 tablet by mouth once daily. - lisinopril (ZESTRIL) 40 mg tablet Take 1 tablet by mouth once daily. - hydroCHLOROthiazide 25 mg tablet Take 1 tablet by mouth once daily. - gabapentin (NEURONTIN) 300 mg capsule Take 300 mg by mouth daily at bedtime. - atorvastatin (LIPITOR) 40 mg tablet Take 1 tablet by mouth once daily. - levothyroxine (SYNTHROID) 125 mcg tablet TAKE 1 TABLET BY MOUTH EVERY DAY ON AN EMPTY STOMACH FOR THYROID - amoxicillin (POLYMOX, AMOXIL) 500 mg capsule Take four capsules one hour before dental procedure. - CPAP AutoPAP [id number]. Mask per preference, tubing, filters, humidity. Lifetime Supplies. Dx: G47.33. Fax 30 day compliance report to [phone]. - CPAP Please provide mask fitting. Pt [...] one(1) tablet daily. Facility-Administered Medications as of 10/30/2023 - perflutren lipid microspheres 1.3 mL in NaCl (PF) 0.9% 10 mL injection (DEFINITY) - sodium chloride 0.9 % (flush) 10 mL (BD POSIFLUSH) Problem List As Of Date 10/30/2023 Noted Resolved Primary hypertension [I10] 03/11/2005 Hypertrophy of prostate with urinary obstructio*06/01/2006 BLADDER NECK OBSTRUCTION [N32.0] 06/01/2006 Plantar fascial fibromatosis [M72.2] 11/02/2006 05/09/2014 Ingrowing nail [L60.0] 11/26/2007 05/09/2014 Hypothyroidism [E03.9] 03/25/2009 Open fracture of distal phalangeal tuft [HAB904*08/31/2011 05/09/2014 Internal derangement of right knee [M23.91] [...] ASHD (arteriosclerotic heart disease) [I25.10] 09/14/2016 Hyperlipidemia [E78.5] 09/14/2016 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] 06/08/2018 [...] edema [R60.0] 04/29/2020 Venous insufficiency (chronic) (peripheral) [I8*04/29/2020 Cervical radiculopathy [M54.12] 02/08/2021 Chronic low back pain with bilateral sciatica [*12/08/2021 Personal history of fall [Z91.81] 12/08/2021 Age-related physical debility [R54] 12/08/2021 Obesity, Class III, BMI 40-49.9 (morbid obesity*11/02/2022 Chronic bilateral low back pain with bilateral *11/29/2022 Stage 3b chronic kidney disease (HCC) [N18.32] 05/15/2023 Acute saddle pulmonary embolism without acute c*10/23/2023 Acute deep vein thrombosis (DVT) of femoral vei*10/23/2023 Acute hypoxemic respiratory failure (HCC) [J96.*10/23/2023 10/27/2023 RVF (right ventricular failure) (HCC) [I50.810] 10/24/2023 Pulmonary HTN (HCC) [I27.20] 10/25/2023 Encounter Status:Closed by LEONILA TRIANA on 10/30/23[facility] 10-30-2023 NotePatient Outreach ([facility]) FRAN PAREKH ([id number]) 1945 M Date Time Provider Department 10/30/23 LEONILA TRIANA [facility] During your visit today, we recorded the following information about you: Leonila Triana RN 11/06/2023 10:16 AM Addendum TRANSITIONAL CARE MANAGEMENT (TCM) COMMUNITY MONITORING PROGRAM Provider Action/FYI: Value-Based TCM Initial - No Text spoke to patient - states sob had improved had pcp appt today -see note review of meds with pcp no refills needed talked to patient about ordered compression stocking - states he has worm them in the past and he does not care of them - states they are too tight and too hard to get on - advised he get measured for correct fitting - suggested drug marleny - patient states has has done that in the past reviewed the 2 sets of dosing for eliquis - the first 6 days and then after patient has not heard from [facility] - states he will call tomorrow afternoon if no contact first SUMMARY: Discharge Network Status: In-Network Discharge Pt discharged from [facility] on 10/27/23. Admitted for: complaint of SOB and dizziness and was found to have saddle PE and right LE DVT Contact made with patient: Yes Hi my name is Leonila Triana, CHAD and I am calling from the [facility] on behalf of your PCP, Agnes Diaz MD I understand you were recently in the hospital so I am calling to check in with you to ensure you are feeling well now that you're home. May I ask you a few questions related to your hospital stay and well-being? Yes Contact with patient post discharge, spoke to patient. Patient identified by name and . Do you feel your health is BETTER, WORSE, or the SAME since leaving the hospital? Better ACTION TAKEN: Patient indicated symptoms are better or same, no action required. Continue outreach. MEDICATIONS: Many patients have questions or concerns about their medications once they are home. Do you have any questions about taking your medications or which medication you should be on? No Do you need any medication refills at this time, including any of the medications you might take only when needed? No ACTION TAKEN: No action required For RNs or Pharmacy completing outreach ONLY, was a medication review completed? No reviewed at pcp appt today per patient SOCIAL: We would like to make sure you have what you need so that your basics needs are met - including your personal safety, food, housing and medications. Would you like to speak with a social work child care team lead to help give you support for any of these needs? No It can be normal to feel anxious or down during a time like this. Would you like to talk to a mental health professional about how you have been feeling? No ACTION TAKEN: No action taken DISCHARGE INTRUCTIONS: Your discharge instructions / After Visit Summary (AVS) are important in guiding you through the recovery process. Do you have any questions related to your discharge instructions? No Do you have all the necessary equipment and supplies at home? Yes ACTION TAKEN: No action required I would like to help you schedule a hospital follow-up virtual or telephone visit with your PCP. This is a great way for you to connect with your provider to ensure you have safely transitioned home. If you are agreeable, I will send your request to a guide dog instructor who will contact and assist you with that appointment. This will give you an opportunity to ask any questions or address any concerns you may have with your PCP. Inform the patient that if they have any questions or concerns prior to that appointment, to call their PCP's office right away. ACTION TAKEN: No action required, patient already has an appointment scheduled. Your doctor would like us to remind you of the recommendations regarding the coronavirus (Covid19) outbreak: Avoid public places as much as possible. Avoid close contact (within 6 feet) with others you don?t live with, especially if they are sick. Stay home if you are sick. Wash your hands regularly for at least 20 seconds with soap and water. Wear a cloth mask in public places to help reduce community spread. Do not go to your Doctor?s office unless instructed to do so. For any non-emergency symptoms, call your Doctor?s office to get instructions on how to manage (we might recommend a telephone or virtual visit). For emergency symptoms, proceed to Emergency Department as usual but inform them of cough and fever symptoms CASSY if present (or call on the way if possible). ANTONIO Education Ordered -: Yes Leonila Triana RN October 30, 2023 4:12 PM Allergies As of Date: 10/30/2023 Noted Allergy Reaction NORVASC (AMLODIPINE BESYLATE) 09/14/2016 7 - Swelling Comments: pedal edema VENOM-WASP 01/14/2005 7 - Swelling ZITHROMAX (AZITHROMYCIN) 01/14/2005 9 - Itching Date Reviewed: 0 (more content not included)...[facility] 10-27-2023 NoteHNO ID: [id number] Author: STEFANI MENEZES RN Service: Care Management Author Type: Registered Nurse Type: Care Mgt Progress Note Filed: 10/30/2023 14:40 Note Text: CARE MANAGEMENT PROGRESS NOTE SERVICE DATE: 10/30/2023 SERVICE TIME: 2:24 PM LOS: 4 days [facility] caretenders unable to commit. Canceled referral sent to [facility] they have accepted. Called pt. Have explained that caretenders having difficulty committing . Sending ref to [facility]. He agreed with the plan SIGNATURE: Stefani Menezes RN PATIENT NAME: Fran Parekh DATE: October 30, 2023 TIME: 2:23 PM PAGER/CONTACT #: [phone] [id number] NoteHNO ID: [id number] Author: ?, ?, ? Service: ? Author Type: ? Type: Plan of Care Filed: 10/30/2023 10:38 Note Text: PHARMACY BEDSIDE DELIVERY SERVICE Patient Name: Fran Parekh The marked outpatient medications were filled at [facility] pharmacy and picked up at the pharmacy by SPOUSE, ESTEFANIA PAREKH. Medication List START taking these medications ELIQUIS 5 mg tab(s) Generic drug: apixaban Take 2 tablets (10 mg) by mouth twice daily for 6 days. Then take 1 tablet (5 mg) by mouth twice daily CONTINUE taking these medications acetaminophen 650 mg CR tablet amoxicillin 500 mg capsule Commonly known as: AMOXIL Take four capsules one hour before dental procedure. aspirin, enteric coated 81 mg EC tablet Commonly known as: ASPIRIN, ENTERIC COATED atorvastatin 40 mg tablet Commonly known as: LIPITOR Take 1 tablet by mouth once daily. CPAP Please provide mask fitting. Pt with subjective and some degree objective leaks. Prefers nasal type mask. Thank you. DME = [employer] CPAP AutoPAP [id number]. Mask per preference, tubing, filters, humidity. Lifetime Supplies. Dx: G47.33. Fax 30 day compliance report to [phone]. gabapentin 300 mg capsule Commonly known as: NEURONTIN hydroCHLOROthiazide 25 mg tablet Take 1 tablet by mouth once daily. levothyroxine 125 mcg tablet Commonly known as: SYNTHROID TAKE 1 TABLET BY MOUTH EVERY DAY ON AN EMPTY STOMACH FOR THYROID lisinopril 40 mg tablet Commonly known as: ZESTRIL Take 1 tablet by mouth once daily. metoprolol succinate ER 50 mg 24 hr tablet Commonly known as: TOPROL XL Take 1 tablet by mouth once daily. therapeutic multivitamin-minerals tablet You might also be taking other medications not listed above. If you have questions about any of your other medications, talk to the person who prescribed them or your Primary Care Provider. STOP taking these medications ALEVE 220 mg tablet Generic drug: naproxen sodium Fatimahjavier Abarca PAGER: [phone] October 30, 2023 10:37 [facility]06-28-2024 NoteHNO ID: [id number] Author: STEFANI MENEZES RN Service: Care Management Author Type: Registered Nurse Type: Care Mgt Progress Note Filed: 10/27/2023 15:28 Note Text: CARE MANAGEMENT DISCHARGE NOTE SERVICE DATE: October 27, 2023 SERVICE TIME: 3:27 PM Admission Date: 10/23/2023 LOS: 4 days Discharge Arrangement Discharge Arrangement: Home with Home Health, Home with Relative Services Arranged Medical Services: Skilled Home Health Care Caregiver Assessment Needs [facility] Transportation Arrangements Transportation Arrangements: Car Date of Trip: 10/27/23 Destination: home Handoff Communication: Handoff to: Primary Care Physician Primary Care Physician Name/Phone: dr tierney Additional Information: Discharge Information Row Name Admission (Current) from 10/23/[address] [facility] Care Agency [facility] Start of Care -- they will call to set up appointment Reviewed 9 page list picked [facility] in [place] SIGNATURE: Stefani Menezes RN PATIENT NAME: Fran Parekh DATE: October 27, 2023 TIME: 3:27 PM CONTACT #: [phone] [id number] NoteHNO ID: [id number] Author: STEFANI MENEZES RN Service: Care Management Author Type: Registered Nurse Type: Care Mgt Progress Note Filed: 10/27/2023 15:17 Note Text: CARE MANAGEMENT PROGRESS NOTE SERVICE DATE: 10/27/2023 SERVICE TIME: 3:16 PM LOS: 4 days [place] of Choice Given: Yes Level of Care Discussed: Home Care Financial Disclosure Provided: Yes Provider List: Home Care Provider list within the patient's requested geographic area shared with the patient/family: Yes within: 15 miles of zip code: [address] Quality and resource use metrics shared with the patient that are relevant to the patient's goals of care and treatment preferences:: Yes First choice is [facility] [place] SIGNATURE: Stefani Menezes RN PATIENT NAME: Fran Parekh DATE: October 27, 2023 TIME: 3:16 PM PAGER/CONTACT #: [phone] [id number] NoteHNO ID: [id number] Author: MARQUITA HARP MD Service: Hospital Medicine Author Type: Physician Type: Progress Notes Filed: 10/26/2023 16:12 Note Text: INPATIENT PROGRESS NOTE SERVICE DATE: 10/26/2023 SERVICE TIME: 2:00 PM PRIMARY SERVICE: Hospital Medicine Subjective patient was sitting in his chair denies any chest pain or shortness of breath at rest Current Facility-Administered Medications Medication Dose Route Frequency atorvastatin 40 mg tab(s) (LIPITOR) 40 mg ORAL AT BEDTIME aspirin, enteric coated 81 mg tab(s) 81 mg ORAL DAILY levothyroxine (SYNTHROID) tab(s) 125 mcg 125 mcg ORAL DAILY (6 AM) NaCl 0.9% iv flush bag 20 mL INTRAVENOUS PRN sodium chloride 0.9 % (flush) 2-10 mL (BD POSIFLUSH) 2-10 mL INTRAVENOUS DIRECTED PRN And perflutren lipid microspheres 1.1 mg/mL 1.3 mL injection (DEFINITY) 1.3 mL INTRAVENOUS DIRECTED PRN gabapentin 300 mg cap(s) (NEURONTIN) 300 mg ORAL AT BEDTIME benzocaine 1 Lozenge (CHOLORASEPTIC WARMING SORE THROAT) 1 Lozenge MUCOUS MEMBRANE (TOPICAL MOUTH AND THROAT) q 2 H PRN lisinopril 40 mg tab(s) (ZESTRIL) 40 mg ORAL DAILY metoprolol tartrate (short acting) 25 mg tab(s) (LOPRESSOR) 25 mg ORAL q 12 H WARFARIN DOSING PER PHARMACY 1 Each OTHER DAILY - WARFARIN heparin iv infusion 25,000 units in NaCl 0.45% 250 mL STANDARD NOMOGRAM 0-3,000 Units/hr INTRAVENOUS CONTINUOUS And heparin RATE CHANGE bolus 1,000-10,000 Units for subtherapeutic PTTAC results 1,000-10,000 Units INTRAVENOUS PRN magnesium oxide 400 mg tab(s) (MAG-OX) 400 mg ORAL BID warfarin (COUMADIN) tab(s) 7.5 mg 7.5 mg ORAL ONCE - WARFARIN Objective PHYSICAL EXAM: 10/26/23 0348 10/26/23 0724 10/26/23 1139 10/26/23 1543 BP: 154/71 149/71 135/79 138/83 Pulse: 75 74 70 68 Resp: 20 18 18 Temp: 36.8 ?C (98.2 ?F) 37 ?C (98.6 ?F) 37 ?C (98.6 ?F) 36.8 ?C (98.2 ?F) TempSrc: Oral Oral Oral Oral SpO2: 94% 92% 94% 92% Weight: Height: Physical Exam Performed GENERAL: Alert, no distress, cooperative LUNGS: Lungs clear to auscultation CARDIAC: Normal S1 and S2; no rubs,no murmurs ABDOMEN: Abdomen soft, non-tender, +BS normal EXTREMITIES: Extremities normal, no deformities, edema NEURO:Sensation grossly intact, Cranial nerves II-XII intact PULSES: 2+ radial, 2+ carotid DATA: Diagnostic tests reviewed for today's visit: Most recent labs and imaging results. CBC, Coags, BMP, Mg, Phos Recent Labs 10/26/23 1312 10/26/23 0550 10/26/23 0549 10/25/23 1501 10/25/23 0829 10/25/23 0219 10/24/23 1528 10/24/23 0759 10/24/23 0121 WBC -- -- 10.66 -- -- 10.95 11.53* -- 10.84 HB -- -- 14.6 -- -- 14.3 15.6 -- 14.2 HCT -- -- 41.8 -- -- 42.2 45.7 -- 42.2 PLT -- -- 165 -- -- 180 203 -- 151 INR -- -- 1.0 -- -- 1.0 -- 1.0 -- APTT 60.0* -- 83.6* 71.9* < > 101.3* 30.0 50.7* 55.2* NA -- 141 -- -- -- 142 -- -- 138 K -- 4.3 -- -- -- 3.9 -- -- 4.0 CHLOR -- 105 -- -- -- 105 -- -- 106 CO2 -- 23 -- -- -- 27 -- -- 21* BUN -- 24 -- -- -- 24 -- -- 23 CREAT -- 1.34* -- -- -- 1.64* -- -- 1.43* GLUC -- 118* -- -- -- 107* -- -- 107* CA -- 8.9 -- -- -- 8.7 -- -- 8.4* MG -- -- -- -- -- 1.8 -- -- 1.9 P -- -- -- -- -- -- -- -- 3.8 < > = values in this interval not displayed. CSF AND Dilantin Liver Function, Amylase, AND Lipase Recent Labs 10/24/23 0526 10/23/23 1612 LACT 1.4 2.1 Assessment/Plan # Acute hypoxic respiratory failure/acute saddle PE-unprovoked /Intermediate to high risk submassive PE/ acute right lower extremity DVT evaluated by the PERT team plan to continue 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 and to follow-up with outpatient pulmonary hypertension clinic, on IV heparin drip, on Coumadin dosing per pharmacy, currently off oxygen on room air continue to monitor #Severe pulmonary hypertension on echo, plan to follow-up as outpatient # Hypothyroidism on Synthroid #hyperlipidemia on statin #hypertension on lisinopril and beta-adebayo # CKD stage IIIa continue to monitor kidney function Portions of this note including HPI, ROS, Assessment/plan and examination may been copied forward as to provide important historical information essential in contributing to medical decision making of today. Documentation has been reviewed and edited to support clinical decision making of today's encounter. Medication and Non-Pharmacologic VTE Prophylaxis/Anticoagulants Anticoagulant AND Antiplatelet Medications (From admission, onward) Start Dose Route Frequency Last Action Ordered Stop 10/26/23 1700 warfarin (COUMADIN) tab(s) 7.5 mg 7.5 mg ORAL ONCE - WARFARIN Ordered 10/26/23 1455 10/27/23 0459 10/24/23 2000 heparin iv infusion 25,000 units in NaCl 0.45% 250 mL STANDARD NOMOGRAM (Heparin Infusion + Bolus for Subtherapeutic PTTAC) 0-30 mL/hr See [facility] for [facility] Linked Orders Report. 0-3,000 Units/hr INTRAVENOUS CONTINUOUS Rate/Dose Calculated - Heparin, 10/25 1350 10/24/23 1251 -- 10/24/23 1700 WARFARIN DOSING PER PHARMACY 1 Each OTHER DAILY - (more content not included)...[id number] Telephone encounter Note* Telephone Encounter - Sissy Campbell LPN - 10/26/2023 1:32 PM EDT Phoned patient and discussed with him recommendations. Patient agreeable to 10/30/23 at 1:20pm. [facility]06-27-2024 Miscellaneous Notes* Telephone Encounter - Sissy Campbell LPN - 10/26/2023 1:32 PM EDT Phoned patient and discussed with him recommendations. Patient agreeable to 10/30/23 at 1:20pm. * Telephone Encounter - Agnes Diaz MD - 10/26/2023 1:22 PM EDT I was called by the hospitalist at [facility] for this patient regarding new diagnosis of PE and DVT.He is on day 6 of 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 with coumadin and is still not therapeutic. They are wanting to starting him on lovenox and continue coumadin and have him f/u with our office on Monday for appointment and INR. Please call to schedule 40 minute OV with me. documented in this [facility] Telephone encounter Note * Telephone Encounter - Agnes Diaz MD - 10/26/2023 1:22 PM EDT I was called by the hospitalist at [facility] for this patient regarding new diagnosis of PE and DVT.He is on day 6 of 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 with coumadin and is still not therapeutic. They are wanting to starting him on lovenox and continue coumadin and have him f/u with our office on Monday for appointment and INR. Please call to schedule 40 minute OV with me. [facility]06-26-2024 NoteHNO ID: [id number] Author: MARQUITA HARP MD Service: Hospital Medicine Author Type: Physician Type: Progress Notes Filed: 10/25/2023 16:28 Note Text: INPATIENT PROGRESS NOTE SERVICE DATE: 10/25/2023 SERVICE TIME: 4:22 PM PRIMARY SERVICE: Hospital Medicine Subjective patient was sitting in his chair denies any chest pain or shortness of breath at rest Current Facility-Administered Medications Medication Dose Route Frequency atorvastatin 40 mg tab(s) (LIPITOR) 40 mg ORAL AT BEDTIME aspirin, enteric coated 81 mg tab(s) 81 mg ORAL DAILY levothyroxine (SYNTHROID) tab(s) 125 mcg 125 mcg ORAL DAILY (6 AM) NaCl 0.9% iv flush bag 20 mL INTRAVENOUS PRN sodium chloride 0.9 % (flush) 2-10 mL (BD POSIFLUSH) 2-10 mL INTRAVENOUS DIRECTED PRN And perflutren lipid microspheres 1.1 mg/mL 1.3 mL injection (DEFINITY) 1.3 mL INTRAVENOUS DIRECTED PRN gabapentin 300 mg cap(s) (NEURONTIN) 300 mg ORAL AT BEDTIME benzocaine 1 Lozenge (CHOLORASEPTIC WARMING SORE THROAT) 1 Lozenge MUCOUS MEMBRANE (TOPICAL MOUTH AND THROAT) q 2 H PRN lisinopril 40 mg tab(s) (ZESTRIL) 40 mg ORAL DAILY metoprolol tartrate (short acting) 25 mg tab(s) (LOPRESSOR) 25 mg ORAL q 12 H WARFARIN DOSING PER PHARMACY 1 Each OTHER DAILY - WARFARIN heparin iv infusion 25,000 units in NaCl 0.45% 250 mL STANDARD NOMOGRAM 0-3,000 Units/hr INTRAVENOUS CONTINUOUS And heparin RATE CHANGE bolus 1,000-10,000 Units for subtherapeutic PTTAC results 1,000-10,000 Units INTRAVENOUS PRN warfarin 5 mg tab(s) (COUMADIN) 5 mg ORAL ONCE - WARFARIN Objective PHYSICAL EXAM: 10/24/23 2351 10/25/23 0319 10/25/23 0723 10/25/23 1124 BP: 120/73 143/79 120/65 Pulse: 65 66 70 Resp: 18 24 20 Temp: 37 ?C (98.6 ?F) 36.9 ?C (98.4 ?F) 36.7 ?C (98.1 ?F) TempSrc: Oral Oral Oral SpO2: 94% 93% 95% 96% Weight: Height: Physical Exam Performed GENERAL: Alert, no distress, cooperative LUNGS: Lungs clear to auscultation CARDIAC: Normal S1 and S2; no rubs,no murmurs ABDOMEN: Abdomen soft, non-tender, +BS normal EXTREMITIES: Extremities normal, no deformities, edema NEURO:Sensation grossly intact, Cranial nerves II-XII intact PULSES: 2+ radial, 2+ carotid DATA: Diagnostic tests reviewed for today's visit: Most recent labs and imaging results. CBC, Coags, BMP, Mg, Phos Recent Labs 10/25/23 1501 10/25/23 0829 10/25/23 0219 10/24/23 1528 10/24/23 0759 10/24/23 0121 10/23/23 0833 10/23/23 0254 WBC -- -- 10.95 11.53* -- 10.84 -- 9.53 HB -- -- 14.3 15.6 -- 14.2 -- 14.5 HCT -- -- 42.2 45.7 -- 42.2 -- 42.6 PLT -- -- 180 203 -- 151 -- 184 INR -- -- 1.0 -- 1.0 -- -- 1.0 APTT 71.9* 57.9* 101.3* 30.0 50.7* 55.2* < > 42.3* NA -- -- 142 -- -- 138 -- 143 K -- -- 3.9 -- -- 4.0 -- 4.2 CHLOR -- -- 105 -- -- 106 -- 108* CO2 -- -- 27 -- -- 21* -- 24 BUN -- -- 24 -- -- 23 -- 24 CREAT -- -- 1.64* -- -- 1.43* -- 1.51* GLUC -- -- 107* -- -- 107* -- 137* CA -- -- 8.7 -- -- 8.4* -- 8.5 MG -- -- 1.8 -- -- 1.9 -- 1.8 P -- -- -- -- -- 3.8 -- -- < > = values in this interval not displayed. CSF AND Dilantin Liver Function, Amylase, AND Lipase Recent Labs 10/24/23 0526 10/23/23 1612 10/23/23 0254 TPROT -- -- 5.9* ALB -- -- 3.2* ALT -- -- 18 AST -- -- 19 ALKPHOS -- -- 75 TBILI -- -- 0.5 LACT 1.4 2.1 2.7* Assessment/Plan # Acute hypoxic respiratory failure/acute saddle PE-unprovoked /Intermediate to high risk submassive PE/ acute right lower extremity DVT evaluated by the PERT team plan to continue 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 and to follow-up with outpatient pulmonary hypertension clinic, on IV heparin drip, on Coumadin dosing per pharmacy #Severe pulmonary hypertension on echo follow-up as outpatient # Hypothyroidism on Synthroid #hyperlipidemia on statin #hypertension on lisinopril and beta-adebayo # CKD stage IIIa continue to monitor kidney function Portions of this note including HPI, ROS, Assessment/plan and examination may been copied forward as to provide important historical information essential in contributing to medical decision making of today. Documentation has been reviewed and edited to support clinical decision making of today's encounter. Medication and Non-Pharmacologic VTE Prophylaxis/Anticoagulants Anticoagulant AND Antiplatelet Medications (From admission, onward) Start Dose Route Frequency Last Action Ordered Stop 10/25/23 1700 warfarin 5 mg tab(s) (COUMADIN) 5 mg ORAL ONCE - WARFARIN Ordered 10/25/23 1201 10/26/23 0459 10/24/231999 heparin iv infusion 25,000 units in NaCl 0.45% 250 mL STANDARD NOMOGRAM (Heparin Infusion + Bolus for Subtherapeutic PTTAC) 0-30 mL/hr See Hyperspace for full Linked Orders Report. 0-3,000 Units/hr INTRAVENOUS CONTINUOUS Restarted, 10/24 0422 10/24/23 1251 -- 10/24/23 1700 WARFARIN DOSING PER PHARMACY 1 Each OTHER DAILY - WARFARIN Ordered 10/24/23 1247 -- 10/23/23 0900 aspirin, enteric coated 81 mg tab(s) 81 mg ORAL DAILY Given, 10/24 0835 06 (more content not included)...[id number] NoteHNO ID: [id number] Author: FATIMAH DAN MD Service: Critical Care Author Type: Physician Type: Progress Notes Filed: 10/24/2023 17:03 Note Text: MICU PROGRESS NOTE WITH COORD CARE SERVICE DATE: 10/24/2023 Admission Date: 10/23/2023 Day #: 1 in the MICU. 78 yo M with pmhx notable for MARTIN, HTN, HLD, obesity, hypothyroidism, and CKD IIIa is admitted for acute saddle PE. Significant Events over 24 hours: Patient hemodynamically stable. Will have to transition to coumadin due to high cost of Eliquis. Will restart heparin today at 8 pm to bridge. Plan Discussed with Dr Dan and RN OBJECTIVE: BP 151/87 Pulse 99 Temp 36.9 ?C (98.4 ?F) (Oral) Resp 24 Ht 182.9 cm (6') Wt 132.6 kg (292 lb 5.3 oz) SpO2 92% BMI 39.65 kg/m? Vital signs reviewed. Relevant comments- NET FLUID BALANCE Intake/Output Summary (Last 24 hours) at 10/24/2023 1253 Last data filed at 10/24/2023 1029 Gross per 24 hour Intake 754 ml Output 1200 ml Net -446 ml MEDICATIONS Current Facility-Administered Medications Medication Dose Route Frequency atorvastatin 40 mg tab(s) (LIPITOR) 40 mg ORAL AT BEDTIME aspirin, enteric coated 81 mg tab(s) 81 mg ORAL DAILY levothyroxine (SYNTHROID) tab(s) 125 mcg 125 mcg ORAL DAILY (6 AM) NaCl 0.9% iv flush bag 20 mL INTRAVENOUS PRN sodium chloride 0.9 % (flush) 2-10 mL (BD POSIFLUSH) 2-10 mL INTRAVENOUS DIRECTED PRN And perflutren lipid microspheres 1.1 mg/mL 1.3 mL injection (DEFINITY) 1.3 mL INTRAVENOUS DIRECTED PRN gabapentin 300 mg cap(s) (NEURONTIN) 300 mg ORAL AT BEDTIME benzocaine 1 Lozenge (CHOLORASEPTIC WARMING SORE THROAT) 1 Lozenge MUCOUS MEMBRANE (TOPICAL MOUTH AND THROAT) q 2 H PRN lisinopril 40 mg tab(s) (ZESTRIL) 40 mg ORAL DAILY metoprolol tartrate (short acting) 25 mg tab(s) (LOPRESSOR) 25 mg ORAL q 12 H heparin nomogram - NO INITIAL BOLUS OTHER ONCE (heparin bolus) WARFARIN DOSING PER PHARMACY 1 Each OTHER DAILY - WARFARIN heparin iv infusion 25,000 units in NaCl 0.45% 250 mL STANDARD NOMOGRAM 0-3,000 Units/hr INTRAVENOUS CONTINUOUS And heparin RATE CHANGE bolus 1,000-10,000 Units for subtherapeutic PTTAC results 1,000-10,000 Units INTRAVENOUS PRN INFUSIONS heparin Lines, Drains, and Airways Line Duration Peripheral 10/23/23 0230 [facility] Left Forearm 20 Gauge 1 day Peripheral 10/24/23 0400 [facility] Right Forearm 20 Gauge <1 day PHYSICAL EXAM HEENT: Oral Mucosa: Moist mucous membranes Eyes: PERRLA Neck: no jugular venous distention Cardiovascular: normal sinus rhythm Edema- No edema, 2+ edema his legs Respiratory: Clear to auscultation Not on Ventilator Abdomen: Soft, non-tender, non-distended. Bowel sounds normal. No masses, organomegaly Extremities: Peripheral Pulses-UE 3+= normal LE 3+= normal Cap Refill: CAP REFILL: < or = 2 seconds Neurologic: Oriented to person, place, and time. No focal motor, sensory deficits. NUTRITION:Diet heart healthy DATA: Diagnostic tests reviewed for today's visit: Most recent labs and imaging results. Most recent labs Most recent imaging LABS: CBC, Coags, BMP, Mg, Phos Recent Labs 10/24/23 0759 10/24/23 0121 10/23/23 1612 10/23/23 0833 10/23/23 0254 WBC -- 10.84 -- -- 9.53 HB -- 14.2 -- -- 14.5 HCT -- 42.2 -- -- 42.6 PLT -- 151 -- -- 184 INR -- -- -- -- 1.0 APTT 50.7* 55.2* 108.8* < > 42.3* NA -- 138 -- -- 143 K -- 4.0 -- -- 4.2 CHLOR -- 106 -- -- 108* CO2 -- 21* -- -- 24 BUN -- 23 -- -- 24 CREAT -- 1.43* -- -- 1.51* GLUC -- 107* -- -- 137* CA -- 8.4* -- -- 8.5 MG -- 1.9 -- -- 1.8 P -- 3.8 -- -- -- < > = values in this interval not displayed. Liver Function, Amylase, AND Lipase Recent Labs 10/24/23 0526 10/23/23 1612 10/23/23 0254 TPROT -- -- 5.9* ALB -- -- 3.2* ALT -- -- 18 AST -- -- 19 ALKPHOS -- -- 75 TBILI -- -- 0.5 LACT 1.4 2.1 2.7* Assesment/Plan 78 yo M with pmhx notable for MARTIN, HTN, HLD, obesity, hypothyroidism, and CKD IIIa is admitted for acute saddle PE. #Acute saddle PE-unprovoked #Intermediate to high risk submassive PE #Severe pulmonary hypertension Patient has right heart strain on ECHO and severe pulmonary hypertension Patient has no risk factors, and was unprovoked After meeting with PERT team, it was decided to treat medically as there is a suspicion some of thrombus burden is chronic. After speaking to pharmacy, patient's copay for ELIQUIS is 565 dollars, and not affordable to patient Plan Will continue to diurese with net ouptut Continue IV heparin to bridge to coumadin Coumadin dosing per Pharmacy Will need outpatient follow-up with Dr MCCLAIN at pulmonary hypertension follow-up for possible CTEPH workup Chronic disease #CKD stage 3a- continue to monitor BMP #Hypertension- continue home medication lisinopril and metoprolol, will hold hydrochlorothiazide #Hypothyroid- continue synthyroid 125 mcg #Neuropathy- continue Gabapentin 3 (more content not included)...[id number] NoteHNO ID: [id number] Author: YUMIKO PAREDES RN Service: Care Management Author Type: Registered Nurse Type: Care Mgt Progress Note Filed: 10/24/2023 09:49 Note Text: CARE MANAGEMENT PROGRESS NOTE SERVICE DATE: 10/24/2023 SERVICE TIME: 9:34 AM LOS: 1 day Post-Acute Discharge Planning Patient Goal(s): Be able to go home Transport at Discharge: Transportation Arrangements: Car Destination: home Needs Prior to Discharge: Needs Prior to Discharge: To Be Determined Post-Acute Discharge Plan: Pt heparin gtt stopped, switched to eliquis. On RA. Per medical team possible transfer to [facility] if hemodynamically stable. Plan for home with no skilled needs. CM remains available for plan of care and discharge planning needs as they arise. SIGNATURE: Yumiko Paredes RN PATIENT NAME: Fran Parekh DATE: October 24, 2023 TIME: 9:34 AM PAGER/CONTACT #:[facility] [id number] NoteHNO ID: [id number] Author: FATIMAH DAN MD Service: Critical Care Author Type: Physician Type: Progress Notes Filed: 10/24/2023 13:34 Note Text: [facility] STAFF PHYSICIAN NOTE OF PERSONAL INVOLVEMENT IN CARE I have reviewed the progress note obtained and documented by the Resident. I have personally performed a face to face assessment of the patient and have personally participated on the herrera components of the history, exam and medical decision making. I have discussed the case and management of the patient's care. The following comments revise or confirm relevant herrera components of the note. IMPRESSION: 78 yo M with pmhx notable for MARTIN, HTN, HLD, obesity, hypothyroidism, and CKD IIIa. Initially presented to [place] ED 10/21 with concerns for SOB and lightheadedness. Lightheadedness x24 hours, SOB x2 weeks. CTPE with saddle PE with extension R and L main (R centric, L near vessel wall). Imaging concerns for RH strain. [facility]. On arrival, HDS, HR 60. Saturating mid to low 90s on 2L NC. Chemical evidence with ProBNP 2953, HS trop 52, lactate 2.7. ?ROSSANA vs baseline CKD. DVT scan postivie for Prox RLE DVT. POCUS with mild RV dilation with mild dysfunction. Formal echo pending. 10/22: Saturating well on 2L NC. HR mid 50s. Last Metop yesterday AM. Signs of volume overload on exam. Cap refill normal. SBP 110s-130s. Formal echo with RV dysfunction, McConnel's sign, and RVSP in 80s. PERT call performed today. Please see note. Concern for subacute vs chronic disease. Continuing AC at present with improved exam and biomarkers. 10/23: Stable CVC, downtrending creatinine. Lactate down to 1.4. HR 50s-70s. SBP 120s-160s. Saturating well on 2L NC while awake, 4L NC while asleep. Given Lasix 40mg IV this morning with strong response, and since weaned to RA. Able to get OOB to chair without lightheadedness. Problems/Plan: Intermediate to high risk submassive PE: Evidence of R heart strain chemically and by biomarkers. Will continue Heparin. No clear cause outside of sedentary lifestyle, home sick with shingles. Will need outpatient malignancy screenings. Plan for dispo on DOAC. Change to Eliquis today. Will daigle check with pharmacy. See PERT note for further details. Acute moderate RV failure: With RVSP 86, unlikely driven by acute PE alone. Concern for chronicity and possible CTEPH. Patient with MARTIN, but normal RV function and RVSP in October 2022. Will hold IVF. Diuresis today with goal net negative 1-1.5 L. Outpatient followup in PH clinic. HTN: Giving Lasix this AM. Will begin re-introduction of home BP meds (Lisinopril first) ROSSANA on CKDIIIa: Resolving. Near baseline CKDIIIa. HLD: Continue home statin Hypothyroidism: Continue home Levothyroxine Shingles: Finished course of Valtrex. Lesions not open or crusted. Will check with IP if needs to be in precautions. MARTIN: CPAP overnight (did not tolerate. Increased NC) Checklist: DVT PPX: Heparin GTT (PE)->Eliquis this AM Diet: Heart healthy Lines: PIV Morgan: External Code Status: Full Code Family Contact: Disposition: Ok for RNF. Will need outpatient PH followup. Patient/Family Updated: Patient, Fran Parekh, contacted. They were updated on the patient's goals of care, medical plan for the day, storage management consultant recommendations, medical disposition and current medical condition/prognosis as and if clinically indicated. All questions and concerns were answered and addressed at this juncture. They were contacted on October 24, 2023 at 11:30 Am. The duration of the conversation was 5 minutes. Moderate complexity. Ok for RNF SIGNATURE: Fatimah Dan MD [facility] DATE of SERVICE: 10/24/2023[id number] NoteHNO ID: [id number] Author: DEISY DUMAS RN Service: Care Management Author Type: Registered Nurse Type: Care Mgt Initial Assessment Filed: 10/23/2023 13:15 Note Text: CARE MANAGEMENT: ASSESSMENT AND DISCHARGE PLAN SERVICE DATE: October 23, 2023 SERVICE TIME: 1045 PCP: Agnes Diaz MD Primary Contact: Extended Emergency Contact Information Primary Emergency Contact: Estefania Parekh [address] [address] [place] [address] Mobile Relation: Spouse Admission Status: Inpatient Insurance Provider: MEDICARE A AND B Discharge Planning requested by: Per Department Practice Potential Transition Plans No Services Indicated Advance Directives Current Advance Directive: Health Care Power of Compressor Repairer In Chart: No Hand Cigar Making Supervisor Attempted to Assist with AD Completion: Yes Action: Education Provided Current Living Arrangements and Support Lives with: Spouse/significant other Type of Residence: Private Residence (House) Does the patient have to climb stairs at home?: stairs within the home;Yes Support: Spouse/significant other How do you manage to accomplish the following: Independent: Ambulation;Transportation to appointments/community;Bathe/Shower;Meals/Meal Prep;Dress;Going to the bathroom;Medication Management Current Services/Equipment Current Post-Acute Service(s): DME Current DME Type: Continuous Positive Airway Pressure Discharge Planning Patient Goal(s): Be able to go home [place] of Choice Explained: [place] of Choice Given: No Reason Not Given: No placements necessary Are you interested in bedside delivery of your medications? Yes Discharge Planning Participant(s): Patient Patient/Family Comments: Caregiver Assessment: Caregiver is ready, willing and able to meet the patient's needs as recommended by the inter-professional team: No Caregiver needed Transport at Discharge: Transportation Arrangements: Car Needs Prior to Discharge: Needs Prior to Discharge: To Be Determined Post-Acute Discharge Plan: Home with no skilled needs Pt admitted for PE, on heparin gtt and 2 L NC. Pt uses CPAP at home. Met with pt at bedside. 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 Pt lives with his in a 2 story home. Pt is currently in [place]. Pt states no other DME besides CPAP and no services in the home. Pt states no issues with SDOH, substances or BH. Pt states no concerns at d/c. Plan for d/c with no skilled needs. SIGNATURE: Deisy Dumas RN PATIENT NAME: Fran Parekh DATE: October 23, 2023 TIME: 1:09 PM CONTACT # [phone] [id number] NoteHNO ID: [id number] Author: FATIMAH DAN MD Service: Critical Care Author Type: Physician Type: Plan of Care Filed: 10/23/2023 15:33 Note Text: PERT NOTE HPI: 78 year old, male, Symptoms SOB, lightheadedness and Onset ~2 weeks for SOB. Lightheadedness worse in last 24 hours, but possibly one week . Cancer: No. Chronic Heart Disease: No. Chronic Pulmonary Disease: No. Diabetes:No. On Anticoagulation at Home: No. PE Description: Size and location: Saddle PE with extension R and L main (R centric, L near vessel wall) . Right heart strain: Yes. By EKG: No. By CT: Yes. By Echo: Yes. By BNP or NT-pro-BNP: Yes. 2,953 Troponin (necrosis): Yes. 52-> 43 Vital signs: HR BP RR SpO2 FiO2 Temp: BP 131/78 Pulse 57 Temp (Src) 98.1 (Oral) Resp 22 Ht 6' 0 (1.83m) Wt 294 lb 12.1 oz (133.7kg) SpO2 96% BMI 39.97 kg/(m2). O2 Therapy: Nasal Cannula, Liters: 2 Current treatment Adequate AC: Yes, Heparin drip. PTT 100 . Hemodynamic support:No. Respiratory support: Yes, 2L NC . Thrombolysis:No. LABS: BUN Date Value Ref Range Status 10/23/2023 24 9 - 24 mg/dL Final Creatinine Date Value Ref Range Status 10/23/2023 1.51 (H) 0.73 - 1.22 mg/dL Final Platelet Count Date Value Ref Range Status 10/23/2023 184 150 - 400 k/uL Final Hemoglobin Date Value Ref Range Status 10/23/2023 14.5 13.0 - 17.0 g/dL Final No results found for: BNP NT Pro BNP Date Value Ref Range Status 10/23/2023 2,953 (H) <450 pg/mL Final No results found for: TROPT APTT (sec) Date Value 10/23/2023 100.7 03/11/2013 28.9 No results found for: PT PT INR (no units) Date Value 03/11/2013 1.0 INR (no units) Date Value 10/23/2023 1.0 For normotensive patients, calculate the: Jorge Score: Predictor Points SBP 90-100 mmHg 0 Elevated Cardiac Troponin 2 RV Dysfunction (Echocardiogram or CT Scan 2 Heart rate >110 beats per min 0 Total Score: 4 Stage Stage Stage I II III Points 0-2 3-4 >4 30-day PE-related complications % 4.2 10.8 29.2 30-day PE-related mortality % 1.7 5.0 15.5 Contraindications to Lysis: Absolute contraindications Prior intracranial hemorrhage: No. Known structural cerebral vascular lesion: No. Known malignant intracranial neoplasm: No. Ischemic stroke within three months: No. Suspected aortic dissection: No. Active bleeding or bleeding diathesis (excluding menses): No. Significant closed-head trauma or facial trauma within three months: No. Relative contraindications History of chronic, severe, poorly controlled hypertension:No. Severe uncontrolled hypertension on presentation (SBP >180 mmHg or DBP >110 mmHg): No. History of ischemic stroke more than three months prior:No. Traumatic or prolonged (>10 minute) CPR or major surgery less than three weeks: No. Internal bleeding within two to four weeks: No. Noncompressible vascular punctures: No. Recent invasive procedure: No. : No. Active peptic ulcer: No Pericarditis or pericardial fluid: No Current use of anticoagulants with an INR >1.7 or PT >15 seconds: No Age >75 years: Yes Diabetic retinopathy: No IMPRESSION AND RECOMMENDATIONS Mr. Fran Parekh male 78 year old M with pmhx notable for MARTIN, HTN, HLD, obesity, hypothyroidism, and CKD IIIa. Presenting from [place] with Submassive intermediate to high risk PE with radiographic and biochemical signs of R heart strain. HDS (though off home anti-HTN) and HR 50s-60s. Saturating well on 2L NC. PERT call this PM. Echo read with RVSP 86 and moderately decreased RV function with positive McConnel's sign. With eccentric clot on L side, symptoms >2 weeks, and RVSP elevation, concerned that much of clot burden may be subacute to chronic. Plan: -Continue Heparin drip (standard) -Re-check VBG -If remains HDS with improved lactate, downtrending trops, etc, will plan on AC alone with outpatient pulm HTN clinic follow up. If unstable, no contraindication to TPA outside of age. Would also be candidate for EKOS if symptoms worsened. -Eventual plan for DOAC on discharge. Fatimah Dan MD Clinical Associate Staff, Critical care Medicine Pager: [phone] October 23, 2023 3:33 [facility]06-24-2024 NoteHNO ID: [id number] Author: ANNE-MARIE MARRUFO DO Service: Critical Care Author Type: Resident Type: Plan of Care Filed: 10/23/2023 14:17 Note Text: This is a 78-year-old male with a past medical history of hypertension, hyperlipidemia, hypothyroidism, MARTIN on CPAP, prediabetes, CKD, and angina who presents with dizziness and lightheadedness from [place] and was found to have a saddle pulmonary embolism. CT of the chest was performed and showed a saddle embolus with thrombus in the right main pulmonary artery (50% lumen of the vessel., Left main 20 to 30% lumen of the vessel. Given requirement for PERT team consultation patient [facility] morning. Discussions with Dr. Gonzales determined that he would like a formal echocardiogram and fibrinogen PERT discussion. Likely PE secondary to DVT as ultrasound on right lower extremity proximal DVT. Patient admits to being more sedentary than usual. Will have discussion with PERT team after 10 AM, Dr. Gonzales. As of now patient is intermediate high risk PE as 19 performed bedside POCUS and found RV mildly dilated with mild dysfunction. RVSP greater than 60, estimated RAP greater than 15. Of note patient does show some signs of hypoperfusion with blood pressure in the low 100s systolics, lactate slightly elevated to 2.7, and ROSSANA on CKD. Of note, called infection prevention about patient's shingles. He started treatment on 09 October 2023 and completed his 7-day treatment. His lesions are not open, or draining. They are covered with his down on his side. Addendum: PERT team discussion decided we will not go forth with intervention. We will continue medical management. It appears his clots are chronic in nature as his echo one year ago had a normal RVSP and now it is greater than 60. Possibly that thi is CTEPH. He should follow up with the pulmonary hypertension treatment. Anne-Marie Marrufo, [facility]06-24-2024 NoteHNO ID: [id number] Author: FATIMAH DAN MD Service: Critical Care Author Type: Physician Type: Progress Notes Filed: 10/23/2023 15:39 Note Text: [facility] STAFF PHYSICIAN NOTE OF PERSONAL INVOLVEMENT IN CARE I have reviewed the plan of care note obtained and documented by the Resident. I have personally performed a face to face assessment of the patient and have personally participated on the herrera components of the history, exam and medical decision making. I have discussed the case and management of the patient's care. The following comments revise or confirm relevant herrera components of the note. IMPRESSION: 78 yo M with pmhx notable for MARTIN, HTN, HLD, obesity, hypothyroidism, and CKD IIIa. Initially presented to [place] ED 10/21 with concerns for SOB and lightheadedness. Lightheadedness x24 hours, SOB x2 weeks. CTPE with saddle PE with extension R and L main (R centric, L near vessel wall). Imaging concerns for RH strain. [facility] work [facility]. On arrival, HDS, HR 60. Saturating mid to low 90s on 2L NC. Chemical evidence with ProBNP 2953, HS trop 52, lactate 2.7. ?ROSSANA vs baseline CKD. DVT scan postivie for Prox RLE DVT. POCUS with mild RV dilation with mild dysfunction. Formal echo pending. 10/22: Saturating well on 2L NC. HR mid 50s. Last Metop yesterday AM. Signs of volume overload on exam. Cap refill normal. SBP 110s-130s. Formal echo with RV dysfunction, McConnel's sign, and RVSP in 80s. PERT call performed today. Please see note. Concern for subacute vs chronic disease. Continuing AC at present with improved exam and biomarkers. Problems/Plan: Intermediate to high risk submassive PE: Evidence of R heart strain chemically and by biomarkers. Will continue Heparin. No clear cause outside of sedentary lifestyle, home sick with shingles. Will need outpatient malignancy screenings. Plan for dispo on DOAC. See PERT note for further details. Acute moderate RV failure: With RVSP 86, unlikely driven by acute PE alone. Concern for chronicity and possible CTEPH. Patient with MARTIN, but normal RV function and RVSP in October 2022. Will hold IVF. Consider diuresis pending course. Outpatient followup in PH clinic. HTN: Hold all home anti-HTN while discussing possible intervention for PE and trending hemodynamics. ROSSANA on CKDIIIa: Possibly in setting obstructive shock vs RV failure. Trend labs. Improved perfusion on exam. HLD: Continue home statin Hypothyroidism: Continue home Levothyroxine Shingles: Finished course of Valtrex. Lesions not open or crusted. Will check with IP if needs to be in precautions. MARTIN: CPAP overnight Checklist: DVT PPX: Heparin GTT (PE) Diet: NPO until PERT call Lines: PIV Morgan: External Code Status: Full Code Family Contact: Disposition: [facility] Patient/Family Updated: Patient, Fran Parekh, contacted. They were updated on the patient's goals of care, medical plan for the day, storage management consultant recommendations, medical disposition and current medical condition/prognosis as and if clinically indicated. All questions and concerns were answered and addressed at this juncture. They were contacted on October 23, 2023 at 11:15 AM. The duration of the conversation was 5 minutes. Billing performed by overnight team on early AM admission. SIGNATURE: Ftaimah Dan MD [facility] DATE of SERVICE: 10/23/2023[id number] History of Present illness Narrative* Sherrell Rouse APRN.SUPERVISOR [employer]ELT - 10/09/2023 7:23 AM EDT This note was created using NoteWriter. Subjective Fran Parekh is a 78 year old male. 78 year old male with PMH HTN, hyperlipidemia, MARTIN, and thyroid presents for rash. Think it is shingles Acute onset 2 days ago Left elbow and left waist line +red +painful +blistering Endorses similar to prior eruption of shingles. Denies new lotions, soaps, or medicines Denies fever or chills Denies malaise or fatigue. Denies using homeopathic or OTC medicines PTAS The history is provided by the patient. No seeing eye dog teacher was used. Rash This is a new problem. Episode onset: 2 days ago. The problem is unchanged. Location: left elbow/left waist line. The rash is characterized by blistering, pain and redness. He was exposed to nothing.Pertinent negatives include no anorexia, congestion, cough, diarrhea, eye pain, facial edema, fatigue, fever, joint pain, nail changes, rhinorrhea, shortness of breath, sore throat or vomiting. Past treatments include nothing. The treatment provided no relief. There is no history of allergies, asthma, eczema or varicella. PAST MEDICAL HISTORY Diagnosis Date Angina at [...] of skin of nose Dr. Chowdary in [place] Stage 3a chronic kidney disease (HCC) Venous insufficiency PAST SURGICAL HISTORY Procedure Laterality Date ARTHRP ACETBLR/PROX FEM PROSTC AGRFT/ALGRFT Right 06/03/2019 Hip replacement, total COLONOSCOPY FLX DX W/COLLJ SPEC WHEN PFRMD 04/21/11 Repeat 10 [id number] LASER GREENLIGHT prostate, [place] NEUROPLASTY &/TRANSPOS MEDIAN NRV CARPAL TUNNE Left 01/17/2020 Left carpal tunnel release NEUROPLASTY &/TRANSPOS MEDIAN NRV CARPAL TUNNE Right 03/04/2020 Right carpal tunnel release RPR UMBILICAL HRNA 5 YRS/> REDUCIBLE TONSILLECTOMY PRIMARY/SECONDARY <AGE 11 Tonsillectomy ALLERGIES Norvasc [Amlodipine Besylate], Venom-Wasp, and Zithromax [Azithromycin] MEDICATIONS metoprolol succinate ER (TOPROL XL) 50 mg 24 hr tablet^Take 1 tablet by mouth once daily.^Disp: 30 tablet^Rfl: 2 lisinopril (ZESTRIL) 40 mg tablet^Take 1 tablet by mouth once daily.^Disp: 90 tablet^Rfl: 1 hydroCHLOROthiazide 25 mg tablet^Take 1 tablet by mouth once daily.^Disp: 90 tablet^Rfl: 1 gabapentin (NEURONTIN) 300 mg capsule^Take 300 mg by mouth daily at bedtime.^Disp: ^Rfl: atorvastatin (LIPITOR) 40 mg tablet^Take 1 tablet by mouth once daily.^Disp: 90 tablet^Rfl: 3 levothyroxine (SYNTHROID) 125 mcg tablet^TAKE 1 TABLET BY MOUTH EVERY DAY ON AN EMPTY STOMACH FOR THYROID^Disp: 90 tablet^Rfl: 3 naproxen sodium (ALEVE) 220 mg tablet^Take 220 mg by mouth twice daily with meals.^Disp: ^Rfl: amoxicillin (POLYMOX, AMOXIL) 500 mg capsule^Take four capsules one hour before dental procedure.^Disp: 4 capsule^Rfl: 3 CPAP^AutoPAP [id number]. Mask per preference, tubing, filters, humidity. [employer]. Dx: G47.33. Fax 30 day compliance report to [phone].^Disp: 1 Each^Rfl: 999 CPAP^Please provide mask fitting. Pt with subjective and some degree objective leaks. Prefers nasaltype mask. Thank you. DME = [facility]^Disp: 1 Each^Rfl: 99 acetaminophen 650 mg CR tablet^Take 650 mg by mouth as needed.^Disp: ^Rfl: aspirin, enteric coated (ASPIRIN, ENTERIC COATED) 81 mg EC tablet^Take 81 mg by mouth once daily.^Disp: ^Rfl: MULTIVITAMIN,TX-MINERALS ORAL TAB^Take one(1) tablet daily.^Disp: 60^Rfl: 0 valACYclovir (VALTREX) 1 gram tablet^Take 1 tablet by mouth three times a day for 7 days.^Disp: 21 tablet^Rfl: 0 FAMILY HISTORY Problem Relation Age of Onset [...] Topics Alcohol use: No Drug use: No Review of Systems Constitutional: Negative for activity change, appetite change, chills, fatigue and fever. HENT: Negative for congestion, rhinorrhea and sore throat. Eyes: Negative for pain. Respiratory: Negative for apnea, cough, chest tightness and shortness of breath. Cardiovascular: Negative for chest pain, palpitations and leg swelling. Gastrointestinal: Negative for abdominal pain, anorexia, diarrhea and vomiting. Musculoskeletal: Negative for arthralgias, back pain and joint pain. Skin: Positive for rash. Negative for nail changes. Allergic/Immunologic: Negative for environmental allergies, food allergies and immunocompromised state. Neurological: Negative for dizziness, facial asymmetry, light-headedness and headaches. Hematological: Negative for adenopathy. Does not bruise/bleed easily. Psychiatric/Behavioral: Negative for agitation and behavioral problems. Objective BP 142/80 Pulse 78 Temp 36.1 C (96.9 F) Resp 16 Wt 134 kg (295 lb 6.7 oz) SpO2 96% BMI 42.39 kg/m Physical Exam Vitals and nursing note reviewed. Constitutional: General: He is not in acute distress. Appearance: Normal appearance. He is not ill-appearing, toxic-appearing or diaphoretic. HENT: Head: Normocephalic and atraumatic. Right Ear: External ear normal. Left Ear: External ear normal. Nose: Nose normal. No congestion or rhinorrhea. Mouth/Throat: Mouth: Mucous membranes are moist. Pharynx: Oropharynx is clear. No oropharyngeal exudate or posterior oropharyngeal erythema. Eyes: General: Right eye: No discharge. Left eye: No discharge. Extraocular Movements: Extraocular movements intact. Conjunctiva/sclera: Conjunctivae normal. Pupils: Pupils are equal, round, and reactive to light. Cardiovascular: Rate and Rhythm: Normal rate and regular rhythm. Pulses: Normal pulses. Heart sounds: Normal heart sounds. No murmur heard. No friction rub. No gallop. Pulmonary: Effort: Pulmonary effort is normal. No respiratory distress. Breath sounds: Normal breath sounds. No stridor. No wheezing, rhonchi or rales. Chest: Chest wall: No tenderness. Abdominal: General: Abdomen is flat. There is no distension. Palpations: Abdomen is soft. There is no mass. Tenderness: There is no abdominal tenderness. There is no guarding or rebound. Hernia: No hernia is present. Musculoskeletal: General: No swelling, tenderness, deformity or signs of injury. Normal range of motion. Cervical back: Normal range of motion and neck supple. No rigidity or tenderness. Right lower leg: No edema. Left lower leg: No edema. Lymphadenopathy: Cervical: No cervical adenopathy. Skin: General: Skin is warm and dry. Capillary Refill: Capillary refill takes less than 2 seconds. Coloration: Skin is not jaundiced or pale. Findings: Erythema and rash present. No bruising or lesion. Comments: Left elbow with vesicular like rash noted to elbow. Similar area to left waistline. No abscess. No petechia. No red streaking. Neurological: General: No focal deficit present. Mental Status: He is alert and oriented to person, place, and time. Cranial Nerves: No cranial nerve deficit. Sensory: No sensory deficit. Motor: No weakness. Coordination: Coordination normal. Gait: Gait normal. Deep Tendon Reflexes: Reflexes normal. Psychiatric: Mood and Affect: Mood normal. Behavior: Behavior normal. Thought Content: Thought content normal. Assessment and Plan ASSESSMENT/PLAN: 1. Rash - ICD9: 782.1, ICD10: R21 X 2 days Left side No red flags Reminds him of similar eruptions of shingles RX Valtrex Discussed red flags V/units with PCP Sherrell Rouse APRN.SUPERVISOR REMELT documented [facility] encounterC[facility] Telephone encounter Note * Telephone Encounter - Agustín Monroy RN - 09/27/2023 4:29 PM EDT Patient has been identified by name and date of : Yes, Agustín Monroy RN Date 09/27/2023 Time 4:30 pm Patient phones for refill(s): Requested Prescriptions Pending Prescriptions Disp Refills metoprolol succinate ER (TOPROL XL) 50 mg 24 hr tablet 30 tablet 2 Sig: Take 1 tablet by mouth once daily. Date of last office visit in primary care: 08/01/2023 Date of next office visit in primary care: 10/31/2023 Please advise. Thank you. Agustín Monroy RN. [facility]05-29-2024 Miscellaneous Notes* Telephone Encounter - Agustín Monroy RN - 09/27/2023 4:29 PM EDT Patient has been identified by name and date of : Yes, Agustín Monroy RN Date 09/27/2023 Time 4:30 pm Patient phones for refill(s): Requested Prescriptions Pending Prescriptions Disp Refills metoprolol succinate ER (TOPROL XL) 50 mg 24 hr tablet 30 tablet 2 Sig: Take 1 tablet by mouth once daily. Date of last office visit in primary care: 08/01/2023 Date of next office visit in primary care: 10/31/2023 Please advise. Thank you. Agustín Monroy RN. documented in this encounterC[facility]-2024 Telephone encounter Note * Telephone Encounter - Marilia Brush - 09/04/2023 3:07 PM EDT Patient has been identified by name and date of : Yes Requested Prescriptions Pending Prescriptions Disp Refills lisinopril (ZESTRIL) 40 mg tablet 90 tablet 1 Sig: Take 1 tablet by mouth once daily. hydroCHLOROthiazide 25 mg tablet 90 tablet 1 Sig: Take 1 tablet by mouth once daily. RX INSTRUCTIONS: Patient aware RX will be sent to pharmacy. No need to notify patient. Marilia Brush [facility]05-06-2024 Miscellaneous Notes* Telephone Encounter - Marilia Brush - 09/04/2023 3:07 PM EDT Patient has been identified by name and date of : Yes Requested Prescriptions Pending Prescriptions Disp Refills lisinopril (ZESTRIL) 40 mg tablet 90 tablet 1 Sig: Take 1 tablet by mouth once daily. hydroCHLOROthiazide 25 mg tablet 90 tablet 1 Sig: Take 1 tablet by mouth once daily. RX INSTRUCTIONS: Patient aware RX will be sent to pharmacy. No need to notify patient. Marilia Brush documented in this encounterC[facility]04-02-2024 History of Present illness Narrative* PodlogMarilia stuart APRN.CNP - 08/01/2023 9:40 AM EDT 07/31/2023 Patient presents with: Blood Pressure Check SUBJECTIVE: This is a 77 year old that is here today for Above Complaints. BP uncontrolled at last office visit. Metoprolol Succinate increased. Taking and tolerating withoutside effects. Denies visual changes, headaches, dizziness, lightheadedness, slurred speech, facial drooping, extremity numbness, tingling or weakness. Prediabetes: needs A1c checked. Working on losing weight. Denies visual changes, polyuria or polydipsia PAST MEDICAL HISTORY Diagnosis Date Angina at [...] of skin of nose Dr. Chowdary in [place] Stage 3a chronic kidney disease (HCC) Venous insufficiency ALLERGIES Norvasc [Amlodipine Besylate], Venom-Wasp, and Zithromax [Azithromycin] MEDICATIONS Current Outpatient Medications Medication Sig metoprolol succinate ER (TOPROL XL) 50 mg 24 hr tablet Take 1 tablet [...] one hour before dental procedure. CPAP AutoPAP [id number]. Mask per preference, tubing, filters, humidity. [employer]. Dx: G47.33. Fax 30 day compliance report to [phone]. CPAP Please provide mask fitting. Pt with subjective and some degree objective leaks. Prefers nasaltype mask. Thank you. DME = [facility] acetaminophen [...] and negative other than HPI. OBJECTIVE: BP 122/82 Pulse 65 Resp 18 Wt 129.4 kg (285 lb 3.2 oz) SpO2 94% BMI 40.92 kg/m . Vital signs reviewed by this provider. APPEARANCE Well appearing, alert, in no acute distress, well-hydrated, well nourished. Latest Ref Rng 05/15/2023 Protein, Total 6.3 - 8.0 g/dL 6.7 Albumin 3.9 - 4.9 g/dL 3.9 Calcium 8.5 - 10.2 mg/dL 9.1 Bilirubin, Total 0.2 - 1.3 mg/dL 0.5 Alkaline Phosphatase 38 - 113 U/L 76 AST 14 - 40 U/L 23 ALT 10 - 54 U/L 23 Glucose 74 - 99 mg/dL 159 (H) BUN 9 - 24 mg/dL 20 Creatinine 0.73 - 1.22 mg/dL 1.27 (H) Sodium 136 - 144 mmol/L 138 Potassium 3.7 - 5.1 mmol/L 4.2 Chloride 97 - 105 mmol/L 104 CO2 22 - 30 mmol/L 23 Anion Gap 9 - 18 mmol/L 11 eGFR >=60 mL/min/1.73m 58 (L) Latest Ref Rng 11/02/2022 WBC 3.70 - 11.00 k/uL 7.46 RBC 4.20 - 6.00 m/uL 5.01 Hemoglobin 13.0 - 17.0 g/dL 15.9 Hematocrit 39.0 - 51.0 % 47.7 MCV 80.0 - 100.0 fL 95.2 MCH 26.0 - 34.0 pg 31.7 MCHC 30.5 - 36.0 g/dL 33.3 RDW-CV 11.5 - 15.0 % 13.2 Platelet Count 150 - 400 k/uL 235 MPV 9.0 - 12.7 fL 10.1 Absolute nRBC <0.01 k/uL <0.01 Latest Ref Rng 11/02/2022 Cholesterol, Total <200 mg/dL 145 Triglyceride <150 mg/dL 221 (H) HDL Cholesterol >39 mg/dL 31 (L) Non HDL Cholesterol <130 mg/dL 114 Fasting Time hrs 13 VLDL Cholesterol <30 mg/dL 44 (H) TC:HDL Ratio <5.10 4.68 LDL Cholesterol <100 mg/dL 70 LDL:HDL Ratio <2.54 2.26 Legend: (H) High (L) Low BP Controlled (<130/80) due on 07/30/2021 Advance [...] ICD9: 401.1, ICD10: I10 (primary diagnosis) - Improving control - Continue current medications - Recommend home blood pressure monitoring, to bring results to next visit - Encouraged sodium restriction, DASH or Mediterranean diet - Recommend regular aerobic exercise - Discussed need for and benefit of weight loss. BMI 40.92 kg/(m^2) - Follow up in 6 months for hypertension visit 2. Prediabetes - ICD9: 790.29, ICD10: R73.03 - worsening - discussed diet and exercise - HEMOGLOBIN A1C (POC) - follow-up in October, sooner if needed Marilia Orozco APRN.RUBÉN Prescription instructions reviewed with patient as applicable. Patient advised if symptoms do not improve or if symptoms worsen sooner, to contact their primary care physician. Potential red flag symptoms discussed with the patient. Reviewed appropriate action plan to take if red flag symptoms occur. Patient agreeable to treatment plan. Medical Decision Making: Problems: Low: Stable chronic illness Moderate: 1+ chronic illnesses with change Risk: Low: Low risk from testing/treatment Medical Decision Making Level: 3 - Low documented in this encounterC[facility]03-09-2024 Miscellaneous Notes* Telephone Encounter - Lashawn Voss LPN - 07/08/2023 11:40 AM EST letter completed and sent out via mail to patient. Lashawn Voss LPN * Telephone Encounter - Agnes Diaz MD - 07/08/2023 11:31 AM EST Letter printed and signed for patient to burr picker at his convenience. * Telephone Encounter - Lashawn Voss LPN - 07/08/2023 11:24 AM EST Patient is requesting a letter in this regards to not having antibiotic to give to his dentist. Patient does not use nor does he want to use my chart. Please review and advise. Lashawn Voss LPN * Telephone Encounter - Agnes Diaz MD - 07/08/2023 9:18 AM EST The [employer] and the [employer] [employer] both advise againstthe routine use of antibiotic prophylaxis in patients with prosthetic joints undergoing dental procedures. Taking antibiotics when not needed can increase bacterial resistance to those antibiotics and they can cause side effects or other conditions like C diff. If the surgeon would like to send us a request for abx, I would be happy to share this information with them. * Telephone Encounter - Lashawn Voss LPN - 07/08/2023 8:58 AM EST Patient is had antibiotic in the past for dental procedures. Patient stated that he had to miss dental appointment due to not having antibiotics. Patient's dentist is requiring this patient to have an antibiotic. Patient stated that his hip surgeon recommended this when procedure was done. Please review and advise. Lashawn Voss LPN * Telephone Encounter - Agnes Diaz MD - 07/08/2023 8:01 AM EST Dental procedures are not associated with an increased risk of orthopedic hardware infection and wedo not recommend treating with antibiotics prior to dental procedures for patients with history of joint replacement. * Telephone Encounter - Katlyn Melissa, CHAD - 07/07/2023 12:08 PM EST Pt called in and reports he had hip surgery by Dr Claire in [place], and the provider no longer worksthere. He states he is supposed to have an antibiotic an hour before getting his teeth cleaned and the dentist will not prescribe them for him. Pt is asking if the provider will call the antibiotic for him to [facility] in [place]. Pt states he missed his appointment, so he is on the call in list right now. Please call and advise Pt. documented in this encounterC[facility]02-22-2024 Miscellaneous Notes* Telephone Encounter - Agustín Monroy RN - 06/22/2023 3:28 PM EST Patient calls frustrated about the MRI of [...] scheduling would contact him. Patient verbalizes understanding. Agustín Monroy RN documented in this encounterC[facility] Clinic [facility]02-16-2024 Nurse Note* Eunice Bruce LPN - 06/16/2023 11:39 AM EST ALESSIA BP average: BP 161/97 P 66 #1 BP 152/89 P 68 #2 BP 161/98 P 67 #3 BP 155/96 P 66 #4 BP 154/92 P 66 #5 BP 168/96 P 67 #6 BP 166/102 P 67 Eunice Bruce LPN documented in this encounterC[facility]02-16-2024 History of Present illness Narrative* Marilia Orozco APRN.SUPERVISOR REMELT - 06/16/2023 10:40 AM EST 06/16/2023 Patient presents with: Follow Up: 1 [...] of skin of nose Dr. Chowdary in [place] Stage 3a chronic kidney disease (HCC) Venous [...] one hour before dental procedure. CPAP AutoPAP [id number]. Mask per preference, tubing, filters, humidity. [employer]. Dx: G47.33. Fax 30 day compliance report to [phone]. CPAP Please provide mask fitting. Pt with subjective and some degree objective leaks. Prefers nasaltype mask. Thank you. DME = [facility] acetaminophen [...] MG TABLET,EXTENDED RELEASE 24 HR Marilia Orozco APRN.RUBÉN Prescription instructions reviewed with [...] Level: 4 - Moderate documented in this encounterC[facility]01-15-2024 History of Present illness Narrative* Karen Wing RT(R) - 05/15/2023 10:10 AM EST Radiology Service Progress Note PATIENT NAME: Fran Parekh DATE OF SERVICE: May 15, 2023 TIME: 10:09 AM PATIENT IDENTITY VERIFICATION COMPLETED USING TWO (2) IDENTIFIERS: Name and Date of confirmedby patient verbally. FALL SCREENING: Has the patient [...] RT Robby(R) May 15, 2023 10:09 AM documented in this encounterC[facility]11-20-2023 Miscellaneous Notes* Telephone Encounter - Danica Mayen Ma - 03/20/2023 10:53 AM EST Patient last visit 11/02/22 Follow up appointment scheduled 05/15/23 Danica Mayen Ma documented in this encounterC[facility] Clinic [facility]11-13-2023 History of Present illness Narrative* Anusha Trevino MA - 03/13/2023 9:53 AM EST POPULATION HEALTH NAVIGATION OUTREACH Action/ Schedule appointment [...] 13, 2023 9:53 AM documented in this encounterC[facility] Clinic [facility]11-07-2023 Miscellaneous Notes* Telephone Encounter - Radha Montgomery LPN - 03/07/2023 3:12 PM EST Last OV 11/02/2022 Next appointment scheduled 05/05/2023 * Telephone Encounter - Marilia Brush - 03/07/2023 3:09 PM EST Patient has been identified by name and date of : Yes Requested Prescriptions Pending Prescriptions Disp Refills atorvastatin (LIPITOR) 40 mg tablet 90 tablet 0 Sig: Take 1 tablet by mouth once daily. RX INSTRUCTIONS: Patient aware RX will be sent to [facility] pharmacy. No need to notify patient. Marilia Brush documented in this encounterC[facility] Clinic [facility]10-10-2023 Miscellaneous Notes* Telephone Encounter - Leonila Winslow LPN - 02/07/2023 2:48 PM EDT Spoke with pt and information listed below given. Pt verbalizes understanding. Leonila Winslow LPN * Telephone Encounter - Agnes Diaz MD - 02/07/2023 1:47 PM EDT 6 month rx sent. * Telephone Encounter - Sherrell Pardo - 02/07/2023 1:16 PM EDT Patient has been identified by name and [...] and advise. Sherrell Pardo documented in this encounterCleveland Clinic [facility]09-25-2023 Miscellaneous Notes* Telephone Encounter - Alexandrea Winslow LPN - 01/23/2023 9:08 AM EDT Faxed Rx medical necessity for durable medical equipment to [facility] [phone]. Document scanned into chart. Alexandrea Winslow LPN documented in this encounterCleveland Clinic [facility]08-31-2023 History of Present illness Narrative* Yogesh Forman, PT - 12/29/2022 2:27 PM EDT Episode Visit Count: 10 Therapist That Will Accept/Oversee The Plan Of Care: Yogesh Forman PT Start of Care Date: 11/29/22 Onset Date: 11/29/20 Plan of Care Certification Date: 11/29/22 Next Certification Due Date: 01/03/23 Patient Identified by Name and Date of : Yes REHABILITATION AND SPORTS THERAPY PHYSICAL THERAPY DISCONTINUANCE OF CARE PLAN OF CARE UPDATE: Assessment: Fran Parekh is discontinued from Physical Therapy services due to goal achievement and maximal benefit. and Patient/Clinician mutual decision to discontinue current plan of care.. Patient was seen for 10 visits from Start of Care Date: 11/29/22 to 12/29/2022 and treatment included: Therapeutic exercise, Manual therapy, Self-long-term management, Patient/Family/Caregiver Education, and Body mechanics training. [...] since starting PT and he feels confident inhis ability to self manage his symptoms with HEP only. He reports that his pain is not fully abolished but is less overall. He reports compliance with HEP 2x day with good results. He denies any paincurrently. He reports that his standing and walking [...] traction x10 minutes with LEs on stool andforce to pt tolerance. Skilled Intervention: Manual skills to improve joint mobility, ROM, and decrease pain. Utilized anatomy knowledge of the therapist, and assessment of patient's response to intervention. Billing Therapeutic Exercise Treatment Minutes: 39 Manual TherapyTreatment Minutes: 10 Total Treatment Time Minutes (timed/untimed): 49 Session Start Time : 1046 Session Stop Time : 1135 Yogesh Forman PT documented in this encounterC[facility] Clinic [facility]08-29-2023 History of Present illness Narrative* Yogesh Forman PT - 12/27/2022 5:04 PM EDT Episode Visit Count: 9 Therapist That Will Accept/Oversee The Plan Of Care: Yogesh Forman PT Start of Care Date: 11/29/22 Onset Date: 11/29/20 Plan of Care Certification Date: 11/29/22 Next Certification Due Date: 01/03/23 Patient Identified by Name and Date of : Yes REHABILITATION AND SPORTS THERAPY PHYSICAL THERAPY TREATMENT NOTE ASSESSMENT: Fran Parekh tolerated the session with decreased symptoms. He [...] PT but that this relief only lasts intothe same evening. Pain: Pain Pain Level: 6 [...] in small range 2x10 7: [facility] 1 plate plus 3 round x10 CW and x10 CCW facing both lateral directions. 8: [facility], 2 plates plus 3 round pull downs [...] traction x10 minutes with LEs on stool andforce to pt tolerance. Skilled Intervention: Manual skills to improve joint mobility, ROM, and decrease pain. Utilized anatomy knowledge of the therapist, and assessment of patient's response to intervention. Self-Long-Term Management: 1: Pt was educated on PNE [...] : 1445 Session Stop Time : 1539 Yogesh Forman PT documented in this encounterC[facility] Clinic [facility]08-24-2023 History of Present illness Narrative* Yogesh Forman PT - 12/22/2022 2:44 PM EDT Episode Visit Count: 8 Therapist That Will Accept/Oversee The Plan Of Care: Yogesh Forman PT Start of Care Date: 11/29/22 Onset Date: 11/29/20 Plan of Care Certification Date: 11/29/22 Next Certification Due Date: 01/03/23 Patient Identified by Name and Date of : Yes REHABILITATION AND SPORTS THERAPY PHYSICAL THERAPY TREATMENT NOTE ASSESSMENT: Fran Parekh tolerated the session with decreased symptoms. He demonstrated improvements in pain and exercise tolerance. The patient will continue to benefit from ongoing skilled physical therapy to progress toward set goals. PLAN FOR NEXT VISIT: Continue with therex for postural stretching and strengthening with flexion directional preference.Continue with manual lumbar belt traction. SUBJECTIVE: Pt [...] facing both lateral directions. 8: seated at [facility], 2 plates plus 3 round pull downs [...] traction x10 minutes with LEs on stool andforce to pt tolerance. Skilled Intervention: Manual skills to improve joint mobility, ROM, and decrease pain. Utilized anatomy knowledge of the therapist, and assessment of patient's response to intervention. Billing Therapeutic Exercise Treatment Minutes: 39 Manual TherapyTreatment Minutes: 10 Total Treatment Time Minutes (timed/untimed): 49 Session Start Time : 1050 Session Stop Time : 1139 Yogesh Forman PT documented in this encounterC[facility] Clinic [facility]08-18-2023 History of Present illness Narrative* Yogesh Forman PT - 12/16/2022 1:54 PM EDT Episode Visit Count: 6 Therapist That Will Accept/Oversee The Plan Of Care: Yogesh Forman PT Start of Care Date: 11/29/22 [...] today is a good day without explanation. Hefeels that PT session treatments are helping. He [...] traction x12 minutes with LEs on stool andforce to pt tolerance. Skilled Intervention: Manual skills to improve joint mobility, ROM, and decrease pain. Utilized anatomy knowledge of the therapist, and assessment of patient's response to intervention. Billing Therapeutic Exercise Treatment Minutes: 33 Manual TherapyTreatment Minutes: 12 Total Treatment Time Minutes (timed/untimed): 45 Session Start Time : 1303 Session Stop Time : 1348 Yogesh Forman PT documented in this encounterC[facility] Clinic [facility]08-10-2023 History of Present illness Narrative* Yogesh Forman PT - 12/08/2022 4:53 PM EDT Episode Visit Count: 4 Therapist That Will Accept/Oversee The Plan Of Care: Yogesh Forman PT Start of Care Date: 11/29/22 Onset Date: 11/29/20 Plan of Care Certification Date: 11/29/22 Next Certification Due Date: 01/03/23 Patient Identified by Name and Date of : Yes REHABILITATION AND SPORTS THERAPY PHYSICAL THERAPY TREATMENT NOTE ASSESSMENT: Fran Parekh tolerated the session with fatigue, decreased symptoms, expected muscle soreness, and no issues. He demonstrated improvements in pain in short term and mild chcf improvement. The patient will continue to benefit [...] Right, Leg - Left Description: Sharp, Aching (persistent) Frequency: Intermittent, Standing Post Treatment Pain Post [...] facing both lateral directions. 9: seated at [employer], 2 plates plus 1 [...] traction x10 minutes with LEs on stool andforce to pt tolerance. Skilled Intervention: Manual skills to improve joint mobility, ROM, and decrease pain. Utilized anatomy knowledge of the therapist, and assessment of patient's response to intervention. Billing Therapeutic Exercise Treatment Minutes: 45 Manual TherapyTreatment Minutes: 10 Total Treatment Time Minutes (timed/untimed): 55 Session Start Time : 1550 Session Stop Time : 1645 Yogesh Forman PT documented in this encounterC[facility]08-10-2023 Miscellaneous Notes* Telephone Encounter - Amberly Velazquez - 12/08/2022 8:47 AM EDT Patient has been identified by name and [...] and advise. Amberly Velazquez documented in this encounterCleveland Clinic [facility]08-08-2023 History of Present illness Narrative* Yogesh Forman, PT - 12/06/2022 3:33 PM EDT Episode Visit Count: 3 Therapist That Will Accept/Oversee The Plan Of Care: Yogesh Forman PT Start of Care Date: 11/29/22 Onset Date: 11/29/20 Plan of Care Certification Date: 11/29/22 Next Certification Due Date: 01/03/23 Patient Identified by Name and Date of : Yes REHABILITATION AND SPORTS THERAPY PHYSICAL THERAPY TREATMENT NOTE ASSESSMENT: Fran Parekh tolerated the session with decreased symptoms. He [...] LEVEL OF FUNCTION: TREATMENT: Therapeutic Exercise: 1: [employer] StepOne seat #15 x6 minutes resistance level [...] traction x10 minutes with LEs on stool andforce to pt tolerance. Skilled Intervention: Manual skills to improve joint mobility, ROM, and decrease pain. Utilized anatomy knowledge of the therapist, and assessment of patient's response to intervention. Billing Therapeutic Exercise Treatment Minutes: 33 Manual TherapyTreatment Minutes: 10 Total Treatment Time Minutes (timed/untimed): 43 Session Start Time : 1450 Session Stop Time : 1533 Yogesh Forman PT documented in this encounterC[facility] Clinic [facility]08-03-2023 History of Present illness Narrative* Yogesh Forman PT - 12/01/2022 1:29 PM EDT Episode Visit Count: 2 Therapist That Will Accept/Oversee The Plan Of Care: Yogesh Forman PT Start of Care Date: 11/29/22 Onset Date: 11/29/20 Plan of Care Certification Date: 11/29/22 Next Certification Due Date: 01/03/23 Patient Identified by Name and Date of : Yes REHABILITATION AND SPORTS THERAPY PHYSICAL THERAPY TREATMENT NOTE ASSESSMENT: Fran Parekh tolerated the session with decreased symptoms. He [...] Leg - Left Post Treatment Pain Description: (much much much better) Post Treatment Symptoms: After treatment session today, [...] traction x10 minutes with LEs on stool andforce to pt tolerance. Skilled Intervention: Manual skills to improve joint mobility, ROM, and decrease pain. Utilized anatomy knowledge of the therapist, and assessment of patient's response to intervention. Billing Therapeutic Exercise Treatment Minutes: 35 Manual TherapyTreatment Minutes: 10 Total Treatment Time Minutes (timed/untimed): 45 Session Start Time : 1050 Session Stop Time : 1135 Yogesh Forman PT documented in this encounterC[facility] Clinic [facility]08-01-2023 History of Present illness Narrative* Sherrell Jackson PT - 11/29/2022 12:02 PM EDT Episode Visit Count: 1 Therapist That Will Accept/Oversee The Plan Of Care: Sherrell Jackson Start of Care Date: 11/29/22 Onset Date: 11/29/20 Plan of Care Certification Date: 11/29/22 Next Certification Due Date: 01/03/23 Patient Identified by Name and Date of : Yes REHABILITATION AND SPORTS THERAPY PHYSICAL THERAPY EVALUATION PLAN OF CARE: Assessment: Fran Parekh presents with diagnosis of chronic bilateral low [...] Good due to: current objective clinical presentation, w ithin-session changes, positive past response to therapy, good [...] Planned: 16 Planned Treatment Interventions: Therapeutic exercise (88228), Neuromuscular re- education (90045), Manual therapy (42729), Therapeutic activities (21957), Self- long-term management (02379), Gait Training (29136), Patient/Family/Caregiver Education PLAN FOR NEXT VISIT: Pt. requests to work with Yogesh Forman PT. Pt. has been seen by this therapist before and requested this when scheduled. Patient demonstrates good understanding of plan of care and treatment. The above goals and plan of care were discussed and agreed upon by patient/family. Transfer of Care Due To: Patient Preference Patient transferring care to: Yogesh Forman PT SUBJECTIVE: Fran Parekh is a 77 year old male seen today for for chronic low back pain radiatinginto the bilateral buttocks and BLE's that onset [...] has not completed his HEP since about Waite time. Low back pain returned overthe winter and has become gradually worse recently. Presents with BLE swelling, admits he supposed to be wearing compression stockings, but limited compliance due to diffculty donning. Attributes his imbalance to swollen feet. Only 1 fall on uneven terrain about a month ago in [place] reported by pt. 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 Patient education as noted. Self-Long-Term Management: 1: *discussed centralization and directional preference with lumbar flexion based exercises 2: *discussed wedge may be purchased on [employer], provided dimensions and search words to pt. [...] 1200 Session Stop Time : 1245 Sherrell Jackson PT documented in this encounterCleveland Clinic [facility]07-12-2023 Miscellaneous Notes* Telephone Encounter - Wilda Perea MA - 11/09/2022 10:37 AM EDT Mychart message sent. Wilda Perea MA * Telephone Encounter - Wilda Perea MA - 11/09/2022 8:14 AM EDT ----- Message from Marilia Orozco APRN.SUPERVISOR REMELT sent at 11/08/2022 3:20 PM EDT ----- ECHO shows good heart pumping function with no valvular abnormalities. Marilia Orozco APRN.CNP documented in this encounterCleveland Clinic [facility]07-10-2023 History of Present illness Narrative* Dafne Carrillo RN - 11/07/2022 4:20 PM EDT 22 ga angio started to right forearm. Good blood return. Flushed easily with NSS. Dressing applied.Definity (Lot # [id number] exp [id number]) mixed per protocol. 1 cc administered throughout procedure. 9 cc discarded. Pt tolerated procedure well. No C/o's, Hep lock D/c'd and dressing applied. Patient discharged ambulatory with Nuclear Process Engineer. Dafne Carrillo, RN documented in this encounterCleveland Clinic [facility]07-06-2023 Miscellaneous Notes* Telephone Encounter - Radha Montgomery LPN - 11/03/2022 10:18 AM EDT Left detailed message as noted. * Telephone Encounter - Radha Montgomery LPN - 11/03/2022 10:16 AM EDT ----- Message from Agnes Diaz MD sent at 11/03/2022 9:18 AM EDT ----- Stable labs compared to last checks 6-12 months ago. Continue current regimen. Continue to work on low carb diet for A1c in prediabetic range. Low sodium diet and avoidance of NSAIDs for CKD stage 3.F/u as scheduled. documented in this encounterCleveland Clinic [facility]07-05-2023 History of Present illness Narrative* Marilia Orozco, RECORD TESTER.SUPERVISOR REMELT - 11/02/2022 8:27 AM EDT 11/02/2022 Patient presents with: F/U 6 Month [...] of skin of nose Dr. Chowdary in [place] Stage 3a chronic kidney disease (HCC) Venous [...] ON EMPTY STOMACH. FOR THYROID CPAP AutoPAP [id number]. Mask per preference, tubing, filters, humidity. [employer]. Dx: G47.33. Fax 30 day compliance report to [phone]. lisinopril (ZESTRIL, PRINIVIL) 40 mg tablet Take 1 tablet by mouth once daily. metoprolol succinate ER (TOPROL XL) 25 mg 24 hr tablet Take 1 tablet by mouth once daily. CPAP Please provide mask fitting. Pt with subjective and some degree objective leaks. Prefers nasaltype mask. Thank you. DME = [facility] acetaminophen [...] extension: moderate. + SLR. No TTP. Skin withoutlesion or rashes to lower back EXTREMITIES Trace [...] 0.9 % (FLUSH) INJECTION SYRINGE Marilia Orozco APRN.CNP Prescription instructions reviewed with [...] which included preparing to see the patient, [id number] patient care, completing clinical documentation, obtaining and/or reviewing separately obtained history, performing a medically appropriate examination, counseling and educating the pat ient/family/caregiver, and ordering medications, tests, or procedures. documented in this encounterCleveland Clinic [facility]02-10-2023 Miscellaneous Notes* Telephone Encounter - Uziel Perez PA-C - 06/10/2022 10:28 AM EST E-script has been sent to [facility]. Uziel Perez PA-C * Telephone Encounter - Magali Andrews - 06/10/2022 9:03 AM EST Patient is getting dental work done on Monday morning (06/13/21). He needs a prescription for antibiotics. Please send to [facility]/pharmacy #[id number] [phone] [phone] [facility] / pharmacy on file. documented in this encounterCleveland Clinic [facility]01-23-2023 History of Present illness Narrative* Cole Almanza MD - 05/23/2022 11:08 AM EST Patient presents with: Sinus Problem: sinus pressure, [...] ON EMPTY STOMACH. FOR THYROID CPAP AutoPAP [id number]. Mask per preference, tubing, filters, humidity. [employer]. Dx: G47.33. Fax 30 day compliance report to [phone]. lisinopril (ZESTRIL, PRINIVIL) 40 mg tablet Take 1 tablet by mouth once daily. metoprolol succinate ER (TOPROL XL) 25 mg 24 hr tablet Take 1 tablet by mouth once daily. atorvastatin (LIPITOR) 40 mg tablet Take 1 tablet by mouth once daily. CPAP Please provide mask fitting. Pt with subjective and some degree objective leaks. Prefers nasaltype mask. Thank you. DME = [facility] acetaminophen [...] 127.5 kg (281 lb) SpO2 97% BMI 40.32kg/m PHYSICAL EXAM: GEN: mildly ill appearing HEENT: PERRL, EOMI, conjunctiva clear Ears: canals clear. Mild right hyperemia along the manubrium; otherwiseTMs without erythema, bulge,or effusion Sinuses: non-tender frontal sinus, non-tender maxillary [...] pain, shortness of breath, and lethargy; in theER if severe. - COVID WITH FLUA+B, ROUTINE - BENZONATATE 100 MG CAPSULE Cole Almanza MD documented in this encounterCleveland Clinic [facility]01-11-2023 Miscellaneous Notes* Telephone Encounter - Lindsay Pang - 05/11/2022 9:09 AM EST Patient has been identified by name and date of : Yes, Provider Carin Date 05-11-21 Time 9:09 Patient phones for refill(s): hydroCHLOROthiazide Date of last office visit in primary care: 04-13-22 Labs-04/13/22 NOV-07/12/22 med filled 03/31/21 Last 2 Encounter Wt Readings: Date: Wt: 04/13/2022 128.4 kg (283 lb) 02/11/2022 124.7 kg (275 lb) Previous labs/tests for medication: Not applicable Please advise. Thank you. Lindsay Pang documented in this encounterCleveland Clinic [facility]12-14-2022 History of Present illness Narrative* Agnes Diaz MD - 04/13/2022 9:20 AM EST Medicare Yearly Visit Medical B eligibilty date 2009 Date of last exam No AMW date available Patient here today for medicare wellness exam. Has been in good health without hospitalizations or ER visits. No falls in the last year. BP elevated on initial check today. Not checking at home. Denies HTN symptoms aside from chronic LEswelling. Wearing compression stockings daily as prescribed. Took [...] of skin of nose Dr. Chowdary in [place] Stage 3a chronic kidney disease (HCC) Venous insufficiency PAST SURGICAL HISTORY Procedure Laterality Date ARTHRP ACETBLR/PROX FEM PROSTC AGRFT/ALGRFT Right 06/03/2019 Hip replacement, total COLONOSCOPY FLX DX W/COLLJ SPEC WHEN PFRMD 04/21/11 Repeat 10 [id number] LASER GREENLIGHT prostate, [place] NEUROPLASTY &/TRANSPOS MEDIAN [...] bars in the bathroom, lack of handrails onthe stairs or have poor lighting? No Hearing Evaluation: normal PHYSICAL EXAM BP 144/81 Pulse 62 Resp 18 Ht 177.8 cm (5' 10) Wt 128.4 kg (283 lb) BMI 40.61 [...] MD Agnes Singh MD documented in this encounterCleveland Clinic [facility]12-12-2022 History of Present illness Narrative* Anusha Trevino MA - 04/11/2022 11:41 AM EST POPULATION HEALTH NAVIGATION OUTREACH Action/FYI Spoke with [...] 11, 2022 11:41 AM documented in this encounterCleveland Clinic [facility]10-14-2022 History of Present illness Narrative* Wade Marquez Jr., MD - 02/11/2022 9:02 AM EDT ESTABLISHED PATIENT VISIT CHIEF COMPLAINT: MARTIN HISTORY OF PRESENT ILLNESS: Fran R Heavilin is a 76 year old male, BMI [...] Headache...) and other treatment options (UPPP, Dental appliances...).Advised patient to avoid activities that could harm self or others when tired/sleepy, including driving and/or operating heavy machinery. AHI controlled and will not change PAP settings at this time,but in future if leak persists despite change in mask consider lowering upper end of pressure rangewith higher pressures possibly due to mask leaks. [...] subjective and some degree objective leaks. Prefers nasaltype mask. Thank you. DME = [facility] acetaminophen 650 mg CR tablet Take 650 mg by mouth as needed. aspirin, enteric coated (ASPIRIN, ENTERIC COATED) 81 mg EC tablet Take 81 mg by mouth once daily. CPAP AutoPAP [id number]. Mask per preference, tubing, filters, humidity. [employer]. Dx: G47.33. Fax 30 day compliance report to [phone]. MULTIVITAMIN,TX-MINERALS ORAL TAB Take one(1) tablet daily. [...] of skin of nose Dr. Chowdary in [place] Stage 3a chronic kidney disease (HCC) Venous [...] due for new equipment. Rx sent to [facility]. Advised pt not to drive or operate heavy machinery when sleepy. Follow up in 1 year. Wade Marquez MD I spent a total of 22 minutes on the date of the service which included preparing to see the patient, [id number] patient care, completing clinical documentation, obtaining and/or reviewing separately obtained history, performing a medically appropriate examination, counseling and educating the pat ient/family/caregiver, ordering medications, tests, or procedures, independently interpreting results (not separately reported), and communicating results to the patient/family/caregiver. documented in this encounterCleveland Clinic [facility]10-06-2022 History of Present illness Narrative* Yogesh Forman PT - 02/03/2022 4:17 PM EDT Episode Visit Count: 14 Therapist That Will Accept/Oversee The Plan Of Care: Yogesh Froman PT Start of Care Date: 12/08/21 Onset Date: 12/09/19 Plan of Care Certification Date: 01/06/22 Next Certification Due Date: 02/03/22 Patient Identified by Name and Date of : Yes REHABILITATION AND SPORTS THERAPY PHYSICAL THERAPY DISCONTINUANCE OF CARE PLAN OF CARE UPDATE: Assessment: Fran Parekh is discontinued from Physical Therapy services due to goal achievement and maximal benefit. and Patient/Clinician mutual decision to discontinue current plan of care. Patient was seen for 14 visits from Start of Care Date: 12/08/21 to 02/03/2022 and treatment included: Therapeutic exercise, Manual therapy, Therapeutic activities, Self-long-term management, Patient/Family/Caregiver Education, and Body mechanics training. [...] that overall he is definitely better compared tohis status at evaluation. He reports continued pain [...] maximum potential yet TREATMENT: Therapeutic Exercise: 1: [employer] StepOne seat #16 x5 minutes resistance number [...] to tolerance. He was educated on how andwhen to progress strengthening HEP. Skilled Intervention: Patient [...] 10 Total Treatment Time Minutes (timed/untimed): 45 Yogesh Golias, PT documented in this encounterC[facility] Clinic [facility]10-03-2022 History of Present illness Narrative* Yogesh Forman PT - 01/31/2022 9:43 AM EDT Episode Visit Count: 13 Therapist That Will Accept/Oversee The Plan Of Care: Yogesh Forman PT Start of Care Date: 12/08/21 Onset Date: 12/09/19 Plan of Care Certification Date: 01/06/22 Next Certification Due Date: 02/03/22 Patient Identified by Name and Date of : Yes REHABILITATION AND SPORTS THERAPY PHYSICAL THERAPY TREATMENT NOTE ASSESSMENT: Fran Parekh tolerated the session with decreased symptoms. He [...] low back and shooting pain down BLE (12/08).Pt took Tylenol and pain is getting better. [...] LEVEL OF FUNCTION: TREATMENT: Therapeutic Exercise: 1: Gate [employer] StepOne seat #16 x5 minutes resistance number 5 (Pt provided an update on his condition and subjective collected.) 2: supine B SKTC 2x30 seconds 3: supine DKTC 2x30 seconds with towel 4: supine LTR 2x10 5: stirring the pot standing at [facility] 1 plate plus 2 round 2x10 CW and 2x10 CCW facing both lateraldirections 6: standing at [facility], palloff press with 1 plate and 2 round 2x12 facing both lateral directions. 7: seated at [facility] with maria del rosario overhead 2 plates [...] 45 RUBENS Allred PT documented in this encounterCleveland Clinic [facility]09-26-2022 History of Present illness Narrative* Yogesh Forman PT - 01/24/2022 10:22 AM EDT Episode Visit Count: 12 Therapist That Will Accept/Oversee The Plan Of Care: Yogesh Forman PT Start of Care Date: 12/08/21 Onset Date: 12/09/19 Plan of Care Certification Date: 01/06/22 Next Certification Due Date: 02/03/22 Patient Identified by Name and Date of : Yes REHABILITATION AND SPORTS THERAPY PHYSICAL THERAPY TREATMENT NOTE ASSESSMENT: Fran Parekh tolerated the session with decreased symptoms. He [...] he is feeling the same as last visit.He reports compliance with HEP 2x day. He [...] Location: Leg - Right;Leg - Left Description: (electric) Frequency: Intermittent Post Treatment Pain Post Treatment [...] 2x10 5: stirring the pot standing at [facility] 1 plate plus 2 round 2x10 CW and 2x10 CCW facing both lateraldirections 6: standing at [facility], palloff press with 1 plate and 2 round 2x12 facing both lateral directions. 7: seated at [facility] with maria del rosario overhead 2 plates [...] 10 Total Treatment Time Minutes (timed/untimed): 45 Yogesh Forman PT documented in this encounterCleveland Clinic [facility]09-22-2022 History of Present illness Narrative* Yogesh Forman PT - 01/20/2022 10:23 AM EDT Episode Visit Count: 11 Therapist That Will Accept/Oversee The Plan Of Care: Yogesh Forman PT Start of Care Date: 12/08/21 Onset Date: 12/09/19 Plan of Care Certification Date: 01/06/22 Next Certification Due Date: 02/03/22 Patient Identified by Name and Date of : Yes REHABILITATION AND SPORTS THERAPY PHYSICAL THERAPY TREATMENT NOTE ASSESSMENT: Fran Parekh tolerated the session with decreased symptoms. He demonstrated improvements in endurance of core stabilization/strengthening exercises. The patient will continue to benefitfrom ongoing skilled physical therapy to progress toward set goals. PLAN FOR NEXT VISIT: Continue with neutral spine strengthening SUBJECTIVE: Patient Reason for Visit: Pt states yesterday was a bad day for pain, was a -12/08. Pt states feeling better today but did take a Tylenol prior to coming to therapy. Pain: Pain Pain Level: 1 Pain Location: Low Back/Lumbar Spine - Right;Low Back/Lumbar Spine - Left;Buttocks - Right;Buttocks- Left;Leg - Right;Leg - Left Frequency: Intermittent Post Treatment Pain Post Treatment Pain Level: 0 Post Treatment Pain Location: Low Back/Lumbar Spine - Right;Low Back/Lumbar Spine - Left;Buttocks -Right;Buttocks - Left;Leg - Right;Leg - Left OBJECTIVE MEASURES WITH LEVEL OF FUNCTION: Pt able to tolerate increased reps with stir the pot and pallofs wihtout increase in pain in low back. TREATMENT: Therapeutic Exercise: 1: Gate [employer] StepOne seat #16 x5 minutes resistance number 5 (Pt provided an update on his condition and subjective collected.) 2: supine B SKTC 2x30 seconds 3: supine DKTC 2x30 seconds with towel 4: supine LTR 2x10 5: stirring the pot standing at [facility] 1 plate plus 2 round 2x10 CW and 2x10 CCW facing both lateraldirections 6: [facility] press with 1 plate and 2 round 2x12 facing both lateral directions. 7: seated at [facility] with maria del rosario overhead 2 plates [...] 10 Total Treatment Time Minutes (timed/untimed): 43 Tabby Gibbs EDGE BANDING OFF BEARER Yogesh Forman PT documented in this encounterCleveland Clinic [facility]09-19-2022 History of Present illness Narrative* Gregory Moyer, PT - 01/17/2022 10:20 AM EDT Episode Visit Count: 10 Therapist That Will Accept/Oversee The Plan Of Care: Yogesh Forman PT Start of Care Date: 12/08/21 Onset Date: 12/09/19 Plan of Care Certification Date: 01/06/22 Next Certification Due Date: 02/03/22 Patient Identified by Name and Date of : Yes REHABILITATION AND SPORTS THERAPY PHYSICAL THERAPY TREATMENT NOTE ASSESSMENT: Fran Tarah Parekh tolerated the session with decreased symptoms. He [...] football game and doing a lot of walkingand stair climbing and it aggrevated his low back. Pt states his balance trouble is due to swellingin his BLE into his feet. Pain: Pain Pain Level: 2 Pain Location: Low Back/Lumbar Spine - Right;Low Back/Lumbar Spine - Left;Buttocks - Right;Buttocks- Left;Leg - Right;Leg - Left Frequency: Intermittent Post Treatment Pain Post Treatment Pain Level: 0 Post Treatment Pain Location: Low Back/Lumbar Spine - Right;Low Back/Lumbar Spine - Left;Buttocks -Right;Buttocks - Left;Leg - Right;Leg - Left OBJECTIVE MEASURES WITH LEVEL OF FUNCTION: Traction and flexion bias relieves symptoms today TREATMENT: Therapeutic Exercise: 1: [employer] StepOne seat #16 x5 minutes resistance number 5 (Pt provided an update on his condition and subjective collected.) 2: supine B SKTC 2x30 seconds 3: supine DKTC 2x30 seconds with towel 4: supine LTR 2x10 5: stirring the pot standing at [facility] 1 plate plus 2 round x10 CW and x10 CCW facing both lateral directions 6: standing at [facility], palloff press with 1 plate and 2 round 2x10 facing both lateral directions. 7: seated at [facility] with maria del rosario overhead 2 plates [...] 42 RUBENS Allred PT documented in this encounterCleveland Clinic [facility]09-14-2022 History of Present illness Narrative* Yogesh Forman PT - 01/12/2022 11:09 AM EDT Episode Visit Count: 9 Therapist That Will Accept/Oversee The Plan Of Care: Yogesh Forman PT Start of Care Date: 12/08/21 Onset Date: 12/09/19 Plan of Care Certification Date: 01/06/22 Next Certification Due Date: 02/03/22 Patient Identified by Name and Date of : Yes REHABILITATION AND SPORTS THERAPY PHYSICAL THERAPY TREATMENT NOTE ASSESSMENT: Fran Parekh tolerated the session with fatigue and expected [...] - Right;Low Back/Lumbar Spine - Left;Buttocks - Right;Buttocks- Left;Leg - Right;Leg - Left Description: (no pain to start today) Frequency: Intermittent Post Treatment Pain Post Treatment Pain Level: No Change Post Treatment Pain Location: Low Back/Lumbar Spine - Right;Low Back/Lumbar Spine - Left;Buttocks -Right;Buttocks - Left;Leg - Right;Leg - Left Post Treatment Pain Description: (discomfort but no increase in pain) Post Treatment [...] 2x10 5: stirring the pot standing at [facility] 1 plate plus 2 round x10 CW and x10 CCW facing both lateral directions 6: standing at [facility], palloff press with 1 plate and 2 round 2x10 facing both lateral directions. 7: seated at [facility] with maria del rosario overhead 2 plates [...] 15 Total Treatment Time Minutes (timed/untimed): 45 Yogesh Forman PT documented in this encounterCleveland Clinic [facility]09-12-2022 History of Present illness Narrative* Yogesh Forman PT - 01/10/2022 11:21 AM EDT Episode Visit Count: 8 Therapist That Will Oversee The Plan Of Care: Yogesh Forman PT Start of Care Date: 12/08/21 Onset Date: 12/09/19 Plan of Care Certification Date: 01/06/22 Next Certification Due Date: 02/03/22 Patient Identified by Name and Date of : Yes REHABILITATION AND SPORTS THERAPY PHYSICAL THERAPY TREATMENT NOTE ASSESSMENT: Fran Parekh tolerated the session with fatigue, decreased symptoms, [...] he is doing well and even better thanlast visit. He reports that pain is decreased since 01/06/22. He reports compliance with HEP and evenstarted doing HEP before getting out of bed and this has helped with the amount of pain he has getting out of bed. He denies any pain to start today. Pain: Pain Pain Level: 0 Pain Location: Low Back/Lumbar Spine - Right;Low Back/Lumbar Spine - Left;Buttocks - Right;Buttocks- Left;Leg - Right;Leg - Left Description: (no pain to start today) Frequency: Intermittent Post Treatment Pain Post Treatment Pain Level: No Change OBJECTIVE MEASURES WITH LEVEL OF FUNCTION: TREATMENT: Therapeutic Exercise: 1: [employer] StepOne seat #16 x5 minutes handles at #5 (Subjective taken and education to do exercisesto help alleviate pain, especially before getting out [...] 10 Total Treatment Time Minutes (timed/untimed): 45 Yogesh Forman PT documented [facility] encounterC[facility] History of Present illness Narrative* Yogesh Forman PT - 01/04/2022 3:07 PM EDT Episode Visit Count: 6 Therapist That Will Oversee The Plan Of Care: Yogesh Forman PT Start of Care Date: 12/08/21 Onset Date: 12/09/19 Plan of Care Certification Date: 12/08/21 Next Certification Due Date: 01/19/22 Patient Identified by Name and Date of : Yes REHABILITATION AND SPORTS THERAPY PHYSICAL THERAPY TREATMENT NOTE ASSESSMENT: Fran Tarah Parekh tolerated the session with decreased symptoms. He [...] #5 (Subjective taken and education to do exercisesto help alleviate pain.) 2: supine B SKTC [...] 10 Total Treatment Time Minutes (timed/untimed): 45 Tabby Gibbs, RUBENS Fomran PT documented in this encounterC[facility] History of Present illness Narrative* Yogesh Forman PT - 12/29/2021 3:18 PM EDT Episode Visit Count: 5 Therapist That Will Oversee The Plan Of Care: Yogesh Forman PT Start of Care Date: 12/08/21 Onset Date: 12/09/19 Plan of Care Certification Date: 12/08/21 Next Certification Due Date: 01/19/22 Patient Identified by Name and Date of : Yes REHABILITATION AND SPORTS THERAPY PHYSICAL THERAPY TREATMENT NOTE ASSESSMENT: Fran Parekh tolerated the session with decreased symptoms. He demonstrated improvements in posture and form with seated theraband scapular squeezes.The patient will continue to benefitfrom ongoing skilled physical therapy to progress toward set goals. PLAN FOR NEXT VISIT: Add seated transverse abdominis alternating marching with alternating arm lifts. SUBJECTIVE: Patient Reason for Visit: Patient reports his low back and butocks feel good today oncetaking Tylenol this morning at 6:50. Patient still [...] #5 (Subjective taken and education to do exercisesfirst thing in the morning when he gets [...] elevated on stool with pull to tolerance (gentle)x 8 minutes. Pillow added between blet and thighs. Skilled Intervention: Manual skills to improve joint mobility, ROM, and decrease pain. Utilized anatomy knowledge of the therapist, and assessment of patient's response to intervention. Billing Therapeutic Exercise Treatment Minutes: 37 Manual TherapyTreatment Minutes: 8 Total Treatment Time Minutes (timed/untimed): 45 RUBENS Patel PT documented in this encounterC[facility] History of Present illness Narrative* Yogesh Forman PT - 12/27/2021 2:34 PM EDT Episode Visit Count: 4 Therapist That Will Oversee The Plan Of Care: Yogesh Forman PT Start of Care Date: 12/08/21 [...] - Right;Low Back/Lumbar Spine - Left;Buttocks - Right;Buttocks- Left Description: Sharp Frequency: Intermittent Post Treatment Pain Post Treatment Pain Level: 3 Post Treatment Pain Location: Low Back/Lumbar Spine - Right;Low Back/Lumbar Spine - Left;Buttocks -Right;Buttocks - Left Post Treatment Pain Description: Aching Post Treatment Symptoms: feels better OBJECTIVE MEASURES WITH LEVEL OF FUNCTION: Improved form with exercises with less verbal cueing. TREATMENT: Therapeutic Exercise: 1: [employer] StepOne seat #16 x5 minutes handles at #5 (Subjective taken and education to do exercisesfirst thing in the morning when he gets [...] elevated on stool with pull to tolerance (gentle)x 8 minutes. (Education on centralization of symptoms. Possibly add pillow between thighs and belt next visit.) Skilled Intervention: Manual skills to improve joint mobility, ROM, and decrease pain. Utilized anatomy knowledge of the therapist, and assessment of patient's response to intervention. Billing Therapeutic Exercise Treatment Minutes: 37 Manual TherapyTreatment Minutes: 8 Total Treatment Time Minutes (timed/untimed): 45 RUBENS Patel PT documented in this encounterC[facility] History of Present illness Narrative* Yogesh Forman PT - 12/20/2021 6:15 PM EDT Episode Visit Count: 3 Therapist That Will Oversee The Plan Of Care: Yogesh Forman PT Start of Care Date: 12/08/21 [...] pain, activity tolerance and functional mobility for transfers.The patient will continue to benefit from ongoing [...] getting out of bed. He reports less painand less stiffness moving supine to sitting. Pain: [...] and with walking. TREATMENT: Therapeutic Exercise: 1: [employer] StepOne seat [...] 40 Total Treatment Time Minutes (timed/untimed): 40 Yogesh Forman PT documented in this encounterC[facility]08-19-2022 Miscellaneous Notes* Telephone Encounter - Sissy Campbell LPN - 12/17/2021 2:19 PM EDT [place] 12/01/21 NOV 02/08/22 * Telephone Encounter - Vaishali Mendosa Pss - 12/17/2021 11:52 AM EDT Patient has been identified by name and [...] pharmacy. No need to notify patient. Vaishali Mendosa Pss documented in this encounterC[facility]08-11-2022 History of Present illness Narrative* Yogesh Forman PT - 12/09/2021 8:28 AM EDT Episode Visit Count: 1 Therapist That Will Oversee The Plan Of Care: Yogesh Forman PT Start of Care Date: 12/08/21 Onset Date: 12/09/19 Plan of Care Certification Date: 12/08/21 Next Certification Due Date: 01/19/22 Patient Identified by Name and Date of : Yes REHABILITATION AND SPORTS THERAPY PHYSICAL THERAPY EVALUATION PLAN OF CARE: Assessment: Fran Parekh presents with chief complaint of low back and B leg pain that interfereswith standing;walking;bending (prolonged standing and walking) . He [...] Planned: 12 Planned Treatment Interventions: Therapeutic exercise (46640);Self-long-term management (10568);Neuromuscular re-education (96121);Manual therapy (21520);Therapeutic activities (44572);Patient/Family/Caregiver Education;Gait Training (26435);Body Mechanics Training;General Conditioning PLAN FOR NEXT VISIT: [...] and agreed upon by patient/family. SUBJECTIVE: Fran Parekh is a 76 year old male seen today for intermittent pain across both sidesof low back that radiates down B LEs to ankles. He reports that this pain began after R SUSAN 2 yearsago and has been present since then. 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 Environment Patient Lives With: Self/Alone (2 cats only[place] Intake Information: Prescription present Previous Treatment: None Falls Interview: Two or more falls in the last year Falls Intervention: Falls Specific Functional Performance Tests Falls History # of falls in past year: 2 (both at [facility] in [place]) # of falls resulting in an injury in past year: 0 Red Flags Vertebral Fracture Red Flags: Age >70 Vertebral Fracture Clinical Reasoning: Proceed with caution due to the above (1- 2) risk factors Abdominal Aortic Aneurysm Clinical Reasoning: [...] (sec): 34 sec Education: Education Learning Preferences: Demonstration;Explanation;Performance;Printed Materials Barriers: None Learning/educational needs: Home exercise program;Plan of Care;Lifestyle changes;Posture;Body Mechanics Education Provided: Yes, see treatment interventions for education provided Education Provided To: Patient Education Mode/Type: Demonstration;Explanation/Discussion;Literature/Printed Materials;Performance Response to Education/Teach Back: States/Identifies;Return Demonstration;Requires Review/AdditionalEducation TREATMENT: PT Treatment Interventions: Therapeutic Exercise;Self-Long-Term Management Evaluation Therapeutic Exercise: 1: Pt was [...] and visual cuing. Patient education as noted. Self-Long-Term Management: 1: Pt was educated on the anatomy of lumbar spine, likely source of symptoms, rationale for proposed treatment plan and this will all impact his ADLs and function. His question about inversion tableswas answered and he was discouraged from using this and rationale provided. A model of the spine was used to educate patient on anatomy and the effects of flexion and extension on his symptoms. He was educated on how this impacts his directional preference. Pt questions about whether he should walkfor exercise were answered. He was encouraged to use pain as his guide for all activities. The roleof PT was explained and plan of care options provided. Pt's request to focus on his low back and LEsymptoms was discussed and his minimal fall risk [...] 15 Total Treatment Time Minutes (timed/untimed): 60 Yogesh Forman PT documented in this encounterC[facility]08-04-2022 Miscellaneous Notes* Telephone Encounter - Amara Owen Ma - 12/02/2021 1:35 PM EDT Letter mailed to pt home of results. Amara Owen MA * Telephone Encounter - Agnes Diaz MD - 12/02/2021 1:31 PM EDT A1c improved from 6.1 to 5.8. Borderline prediabetic range. Recommend low carb diet and exercise asable. Kidney function is down from last check. Still in stage III range. Recommend he stop all NSAIDs including: ibuprofen, aleve, meloxicam. May use tylenol for pain or fever. Push PO fluids. Will recheckprior to next OV. documented in this encounterC[facility]07-14-2022 History of Present illness Narrative* Tri Hylton PA-C - 11/11/2021 9:43 AM EDT This note was created using Speed Dating by Chantilly Laceriter. Subjective Fran Parekh is a 76 year old male. HPI Patient presents with a chief complaint of right ear pain over the past week to 2 weeks. He states he scratched his ear canal with a Austin pin because it was itchy and since then its been painful. Notrouble hearing. No cough or congestion. No sore throat. No vomiting. No fevers or chills. He states he is leaving for a trip to [place] and wanted to get it taken care [...] of skin of nose Dr. Chowdary in [place] Stage 3a chronic kidney disease (HCC) Venous insufficiency Current Outpatient Medications Medication Sig Dispense Refill atorvastatin (LIPITOR) 40 mg tablet Take 1 tablet by mouth once daily. 90 tablet 1 hydroCHLOROthiazide (HYDRODIURIL, ESIDRIX) 25 mg tablet Take 1 tablet by mouth once daily. 90 tablet 3 CPAP Please provide mask fitting. Pt with subjective and some degree objective leaks. Prefers nasaltype mask. Thank you. DME = [facility] 1 Each 99 acetaminophen (TYLENOL ARTHRITIS PAIN) 650 mg CR tablet Take 650 mg by mouth as needed. lisinopril (ZESTRIL, PRINIVIL) 40 mg tablet Take 1 tablet by mouth once daily. 90 tablet 3 metoprolol succinate ER (TOPROL XL) 25 mg 24 hr tablet Take 1 tablet by mouth once daily. 90 tablet3 aspirin, enteric coated (ASPIRIN, ENTERIC COATED) 81 mg EC tablet Take 81 mg by mouth once daily. CPAP AutoPAP [id number]. Mask per preference, tubing, filters, humidity. Lif[employer] Supplies. Dx: G47.33. Fax 30 day compliance report to [phone]. 1 Device 0 MULTIVITAMIN,TX-MINERALS ORAL TAB Take one(1) tablet daily. 60 0 afhhpowi-kntuxdizx-jigawgjgcujnox (CORTISPORIN) 3.5-10,000-1 mg/mL-unit/mL-% otic suspension Use 3 [...] W/COLLJ SPEC WHEN PFRMD 04/21/11 Repeat 10 [id number] LASER GREENLIGHT prostate, [place] NEUROPLASTY &/TRANSPOS MEDIAN [...] 130.6 kg (288 lb) SpO2 97% BMI 41.32kg/m Physical Exam Vitals reviewed. Constitutional: Appearance: Normal [...] agreeable. Tri Hylton PA-C documented in this encounterC[facility]06-21-2022 History of Present illness Narrative* Marielle Bruner LPN - 10/19/2021 4:10 PM EDT Patient presents for Shingrix vaccine. Denies any problems at this time. Tolerated injection well. Marielle Bruner LPN documented in this encounterC[facility]06-21-2022 Miscellaneous Notes* Telephone Encounter - Agnes Diaz MD - 10/19/2021 10:04 AM EDT Order approved. * Telephone Encounter - Marielle Bruner LPN - 10/19/2021 8:31 AM EDT Patient scheduled for nurse visit 10/19/21 to receive Shingrix vaccine. Please place order at this time. Marielle Bruner LPN documented in this encounterC[facility]06-08-2022 Miscellaneous Notes* Telephone Encounter - Meredith Munoz MA - 10/06/2021 8:42 AM EDT Spoke with patient and gave PCP instructions. Voiced understanding declined appointment at this time. He was instructed if new or worsening sx develop to contact office for an OV. Meredith Munoz MA * Telephone Encounter - Agnes Diaz MD - 10/05/2021 6:16 PM EDT 30 day rx sent in for pain. If worsening, would have him come in for OV. For leg swelling would recommend he wear daily compression stockings, elevate his legs when resting, and stick to low sodium diet as discussed at his last OV. Again, if worsening, needs OV. * Telephone Encounter - Katlyn Melissa RN - 10/05/2021 11:19 AM EDT Pt reports Dr Hopkins would give him Meloxicam for his back and he has been having more pain and is asking if provider would order it. Pt is also asking if it provider would approve for him to get softmassage in his legs for some swelling his massage therapist noticed. He states he has been going toher for 3 years about every 3 weeks [...] you. Katlyn Melissa RN documented in this encounterC[facility]03-16-2022 Miscellaneous Notes* Telephone Encounter - Eunice Bruce LPN - 07/14/2021 11:41 AM EDT Lab client services called. A1C added on to recent blood work. Eunice Bruce LPN * Telephone Encounter - Marilia Orozco APRN.CNP - 07/14/2021 10:17 AM EDT See of lab can add on A1c to recent blood work. Marilia Orozco APRN.RUBÉN documented in this encounterC[facility] Clinic [facility]02-03-2020 History of Past illness Narrative* Problem Noted Date Resolved Date Osteoarthritis of right hip 06/03/2019 02/0 09/2019 Right flank pain 02/04/2013 05/09/2014 Right kidney stone 02/04/2013 05/09/2014 Open fracture of distal phalangeal tuft 08/31/19 12 05/09/2014 Ingrowing nail 11/26/2007 05/09/2014 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 documented as of this encounter (statuses as of 10/06/2021) [facility] of Past illness Narrative* Problem Noted Date Resolved Date Osteoarthritis of right hip 06/03/201909/2019 Right flank pain 02/04/2013 05/09/2014 Right kidney stone 02/04/2013 05/09/2014 Open fracture of distal phalangeal tuft 08/31/1905/09/2014 Ingrowing nail 11/26/2007 05/09/2014 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 documented as of this encounter (statuses as of 10/19/2021) [facility] of Past illness Narrative* Problem Noted Date Resolved Date Osteoarthritis of right hip 06/03/201909/2019 Right flank pain 02/04/2013 05/09/2014 Right kidney stone 02/04/2013 05/09/2014 Open fracture of distal phalangeal tuft 08/31/1905/09/2014 Ingrowing nail 11/26/2007 05/09/2014 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 documented as of this encounter (statuses as of 11/11/2021) [facility] of [facility] illness Narrative* Problem Noted Date Resolved Date Osteoarthritis of right hip 06/03/201909/2019 Right flank pain 02/04/2013 05/09/2014 Right kidney stone 02/04/2013 05/09/2014 Open fracture of distal phalangeal tuft 08/31/1905/09/2014 Ingrowing nail 11/26/2007 05/09/2014 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 documented as of this encounter (statuses as of 11/19/2021) [facility] of [facility] Narrative* Problem Noted Date Resolved Date Osteoarthritis of right hip 06/03/201909/2019 Right flank pain 02/04/2013 05/09/2014 Right kidney stone 02/04/2013 05/09/2014 Open fracture of distal phalangeal tuft 08/31/1905/09/2014 Ingrowing nail 11/26/2007 05/09/2014 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 documented as of this encounter (statuses as of 12/02/2021) [facility] Narrative* Problem Noted Date Resolved Date Osteoarthritis of right hip 06/03/201909/2019 Right flank pain 02/04/2013 05/09/2014 Right kidney stone 02/04/2013 05/09/2014 Open fracture of distal phalangeal tuft 08/31/19 12 05/09/2014 Ingrowing nail 11/26/2007 05/09/2014 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 documented as of this encounter (statuses as of 12/09/2021) [facility] of [facility] Narrative* Problem Noted Date Resolved Date Osteoarthritis of right hip 06/03/201909/2019 Right flank pain 02/04/2013 05/09/2014 Right kidney stone 02/04/2013 05/09/2014 Open fracture of distal phalangeal tuft 08/31/19 12 05/09/2014 Ingrowing nail 11/26/2007 05/09/2014 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 documented as of this encounter (statuses as of 12/17/2021) [facility] Narrative* Problem Noted Date Resolved Date Osteoarthritis of right hip 06/03/201909/2019 Right flank pain 02/04/2013 05/09/2014 Right kidney stone 02/04/2013 05/09/2014 Open fracture of distal phalangeal tuft 08/31/19 12 05/09/2014 Ingrowing nail 11/26/2007 05/09/2014 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 documented as of this encounter (statuses as of 12/20/2021) [facility] Narrative* Problem Noted Date Resolved Date Osteoarthritis of right hip 06/03/201909/2019 Right flank pain 02/04/2013 05/09/2014 Right kidney stone 02/04/2013 05/09/2014 Open fracture of distal phalangeal tuft 08/31/19 12 05/09/2014 Ingrowing nail 11/26/2007 05/09/2014 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 documented as of this encounter (statuses as of 12/27/2021) [facility] Narrative* Problem Noted Date Resolved Date Osteoarthritis of right hip 06/03/201909/2019 Right flank pain 02/04/2013 05/09/2014 Right kidney stone 02/04/2013 05/09/2014 Open fracture of distal phalangeal tuft 08/31/19 12 05/09/2014 Ingrowing nail 11/26/2007 05/09/2014 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 documented as of this encounter (statuses as of 12/30/2021) [facility] Narrative* Problem Noted Date Resolved Date Osteoarthritis of right hip 06/03/201909/2019 Right flank pain 02/04/2013 05/09/2014 Right kidney stone 02/04/2013 05/09/2014 Open fracture of distal phalangeal tuft 08/31/19 12 05/09/2014 Ingrowing nail 11/26/2007 05/09/2014 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 documented as of this encounter (statuses as of 01/04/2022) [facility] Narrative* Problem Noted Date Resolved Date Osteoarthritis of right hip 06/03/201909/2019 Right flank pain 02/04/2013 05/09/2014 Right kidney stone 02/04/2013 05/09/2014 Open fracture of distal phalangeal tuft 08/31/19 12 05/09/2014 Ingrowing nail 11/26/2007 05/09/2014 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 documented as of this encounter (statuses as of 01/10/2022) [facility] Narrative* Problem Noted Date Resolved Date Osteoarthritis of right hip 06/03/201909/2019 Right flank pain 02/04/2013 05/09/2014 Right kidney stone 02/04/2013 05/09/2014 Open fracture of distal phalangeal tuft 08/31/1905/09/2014 Ingrowing nail 11/26/2007 05/09/2014 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 documented as of this encounter (statuses as of 01/12/2022) [facility] Narrative* Problem Noted Date Resolved Date Osteoarthritis of right hip 06/03/201909/2019 Right flank pain 02/04/2013 05/09/2014 Right kidney stone 02/04/2013 05/09/2014 Open fracture of distal phalangeal tuft 08/31/19 12 05/09/2014 Ingrowing nail 11/26/2007 05/09/2014 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 documented as of this encounter (statuses as of 01/17/2022) [facility] Narrative* Problem Noted Date Resolved Date Osteoarthritis of right hip 06/03/201909/2019 Right flank pain 02/04/2013 05/09/2014 Right kidney stone 02/04/2013 05/09/2014 Open fracture of distal phalangeal tuft 08/31/19 12 05/09/2014 Ingrowing nail 11/26/2007 05/09/2014 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 documented as of this encounter (statuses as of 01/20/2022) [facility] Narrative* Problem Noted Date Resolved Date Osteoarthritis of right hip 06/03/201909/2019 Right flank pain 02/04/2013 05/09/2014 Right kidney stone 02/04/2013 05/09/2014 Open fracture of distal phalangeal tuft 08/31/19 12 05/09/2014 Ingrowing nail 11/26/2007 05/09/2014 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 documented as of this encounter (statuses as of 01/24/2022) [facility] Narrative* Problem Noted Date Resolved Date Osteoarthritis of right hip 06/03/201909/2019 Right flank pain 02/04/2013 05/09/2014 Right kidney stone 02/04/2013 05/09/2014 Open fracture of distal phalangeal tuft 08/31/19 12 05/09/2014 Ingrowing nail 11/26/2007 05/09/2014 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 documented as of this encounter (statuses as of 01/31/2022) [facility] Narrative* Problem Noted Date Resolved Date Osteoarthritis of right hip 06/03/201909/2019 Right flank pain 02/04/2013 05/09/2014 Right kidney stone 02/04/2013 05/09/2014 Open fracture of distal phalangeal tuft 08/31/19 12 05/09/2014 Ingrowing nail 11/26/2007 05/09/2014 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 documented as of this encounter (statuses as of 02/03/2022) [facility] Narrative* Problem Noted Date Resolved Date Osteoarthritis of right hip 06/03/201909/2019 Right flank pain 02/04/2013 05/09/2014 Right kidney stone 02/04/2013 05/09/2014 Open fracture of distal phalangeal tuft 08/31/19 12 05/09/2014 Ingrowing nail 11/26/2007 05/09/2014 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 documented as of this encounter (statuses as of 02/11/2022) [facility] Narrative* Problem Noted Date Resolved Date Osteoarthritis of right hip 06/03/201909/2019 Right flank pain 02/04/2013 05/09/2014 Right kidney stone 02/04/2013 05/09/2014 Open fracture of distal phalangeal tuft 08/31/19 12 05/09/2014 Ingrowing nail 11/26/2007 05/09/2014 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 documented as of this encounter (statuses as of 04/12/2022) [facility] Narrative* Problem Noted Date Resolved Date Osteoarthritis of right hip 06/03/201909/2019 Right flank pain 02/04/2013 05/09/2014 Right kidney stone 02/04/2013 05/09/2014 Open fracture of distal phalangeal tuft 08/31/19 12 05/09/2014 Ingrowing nail 11/26/2007 05/09/2014 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 documented as of this encounter (statuses as of 04/14/2022) [facility] Narrative* Problem Noted Date Resolved Date Osteoarthritis of right hip 06/03/201909/2019 Right flank pain 02/04/2013 05/09/2014 Right kidney stone 02/04/2013 05/09/2014 Open fracture of distal phalangeal tuft 08/31/19 12 05/09/2014 Ingrowing nail 11/26/2007 05/09/2014 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 documented as of this encounter (statuses as of 05/23/2022) [facility] Narrative* Problem Noted Date Resolved Date Osteoarthritis of right hip 06/03/201909/2019 Right flank pain 02/04/2013 05/09/2014 Right kidney stone 02/04/2013 05/09/2014 Open fracture of distal phalangeal tuft 08/31/19 12 05/09/2014 Ingrowing nail 11/26/2007 05/09/2014 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 documented as of this encounter (statuses as of 06/10/2022) [facility] History of Past illness Narrative* Problem Noted Date Resolved Date Osteoarthritis of right hip 06/03/201909/2019 Right flank pain 02/04/2013 05/09/2014 Right kidney stone 02/04/2013 05/09/2014 Open fracture of distal phalangeal tuft 08/31/19 12 05/09/2014 Ingrowing nail 11/26/2007 05/09/2014 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 documented as of this encounter (statuses as of 08/09/2022) [facility] History of Past illness Narrative* Problem Noted Date Resolved Date Osteoarthritis of right hip 06/03/201909/2019 Right flank pain 02/04/2013 05/09/2014 Right kidney stone 02/04/2013 05/09/2014 Open fracture of distal phalangeal tuft 08/31/1905/09/2014 Ingrowing nail 11/26/2007 05/09/2014 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 documented as of this encounter (statuses as of 11/02/2022) [facility] History of Past illness Narrative* Problem Noted Date Resolved Date Osteoarthritis of right hip 06/03/201909/2019 Right flank pain 02/04/2013 05/09/2014 Right kidney stone 02/04/2013 05/09/2014 Open fracture of distal phalangeal tuft 08/31/1905/09/2014 Ingrowing nail 11/26/2007 05/09/2014 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 documented as of this encounter (statuses as of 11/03/2022) [facility] History of Past illness Narrative* Problem Noted Date Diagnosed Date Resolved Date Osteoarthritis of right hip 06/03/2019 06/06/2019 Right flank pain 02/04/2013 05/09/2014 Right kidney stone 02/04/2013 5 Open fracture of distal phalangeal tuft 08/31/2011 05/09/2014 Ingrowing nail 11/26/2007 05/09/2014 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/02/2006 05/09/2014 documented as of this encounter (statuses as of 11/09/2022) [facility] History of Past illness Narrative* Problem Noted Date Diagnosed Date Resolved Date Osteoarthritis of right hip 06/03/2019 06/06/2019 Right flank pain 02/04/2013 05/09/2014 Right kidney stone 02/04/2013 5 Open fracture of distal phalangeal tuft 08/31/2011 05/09/2014 Ingrowing nail 11/26/2007 05/09/2014 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/02/2006 05/09/2014 documented as of this encounter (statuses as of 11/09/2022) [facility] History of Past illness Narrative* Problem Noted Date Diagnosed Date Resolved Date Osteoarthritis of right hip 06/03/2019 06/06/2019 Right flank pain 02/04/2013 05/09/2014 Right kidney stone 02/04/2013 5 Open fracture of distal phalangeal tuft 08/31/2011 05/09/2014 Ingrowing nail 11/26/2007 05/09/2014 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/02/2006 05/09/2014 documented as of this encounter (statuses as of 11/29/2022) [facility] History of Past illness Narrative* Problem Noted Date Diagnosed Date Resolved Date Osteoarthritis of right hip 06/03/2019 06/06/2019 Right flank pain 02/04/2013 05/09/2014 Right kidney stone 02/04/2013 5 Open fracture of distal phalangeal tuft 08/31/2011 05/09/2014 Ingrowing nail 11/26/2007 05/09/2014 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/02/2006 05/09/2014 documented as of this encounter (statuses as of 12/01/2022) [facility] History of Past illness Narrative* Problem Noted Date Diagnosed Date Resolved Date Osteoarthritis of right hip 06/03/2019 06/06/2019 Right flank pain 02/04/2013 05/09/2014 Right kidney stone 02/04/2013 5 Open fracture of distal phalangeal tuft 08/31/2011 05/09/2014 Ingrowing nail 11/26/2007 05/09/2014 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/02/2006 05/09/2014 documented as of this encounter (statuses as of 12/07/2022) [facility] History of Past illness Narrative* Problem Noted Date Diagnosed Date Resolved Date Osteoarthritis of right hip 06/03/2019 06/06/2019 Right flank pain 02/04/2013 05/09/2014 Right kidney stone 02/04/2013 5 Open fracture of distal phalangeal tuft 08/31/2011 05/09/2014 Ingrowing nail 11/26/2007 05/09/2014 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/02/2006 05/09/2014 documented as of this encounter (statuses as of 12/08/2022) [facility] History of Past illness Narrative* Problem Noted Date Diagnosed Date Resolved Date Osteoarthritis of right hip 06/03/2019 06/06/2019 Right flank pain 02/04/2013 05/09/2014 Right kidney stone 02/04/2013 5 Open fracture of distal phalangeal tuft 08/31/2011 05/09/2014 Ingrowing nail 11/26/2007 05/09/2014 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/02/2006 05/09/2014 documented as of this encounter (statuses as of 12/09/2022) [facility] History of Past illness Narrative* Problem Noted Date Diagnosed Date Resolved Date Osteoarthritis of right hip 06/03/2019 06/06/2019 Right flank pain 02/04/2013 05/09/2014 Right kidney stone 02/04/2013 5 Open fracture of distal phalangeal tuft 08/31/2011 05/09/2014 Ingrowing nail 11/26/2007 05/09/2014 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/02/2006 05/09/2014 documented as of this encounter (statuses as of 12/16/2022) [facility] History of Past illness Narrative* Problem Noted Date Diagnosed Date Resolved Date Osteoarthritis of right hip 06/03/2019 06/06/2019 Right flank pain 02/04/2013 05/09/2014 Right kidney stone 02/04/2013 5 Open fracture of distal phalangeal tuft 08/31/2011 05/09/2014 Ingrowing nail 11/26/2007 05/09/2014 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/02/2006 05/09/2014 documented as of this encounter (statuses as of 12/22/2022) [facility] History of Past illness Narrative* Problem Noted Date Diagnosed Date Resolved Date Osteoarthritis of right hip 06/03/2019 06/06/2019 Right flank pain 02/04/2013 05/09/2014 Right kidney stone 02/04/2013 5 Open fracture of distal phalangeal tuft 08/31/2011 05/09/2014 Ingrowing nail 11/26/2007 05/09/2014 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/02/2006 05/09/2014 documented as of this encounter (statuses as of 12/28/2022) [facility] History of Past illness Narrative* Problem Noted Date Diagnosed Date Resolved Date Osteoarthritis of right hip 06/03/2019 06/06/2019 Right flank pain 02/04/2013 05/09/2014 Right kidney stone 02/04/2013 5 Open fracture of distal phalangeal tuft 08/31/2011 05/09/2014 Ingrowing nail 11/26/2007 05/09/2014 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/02/2006 05/09/2014 documented as of this encounter (statuses as of 12/29/2022) [facility] History of Past illness Narrative* Problem Noted Date Diagnosed Date Resolved Date Osteoarthritis of right hip 06/03/2019 06/06/2019 Right flank pain 02/04/2013 05/09/2014 Right kidney stone 02/04/2013 5 Open fracture of distal phalangeal tuft 08/31/2011 05/09/2014 Ingrowing nail 11/26/2007 05/09/2014 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/02/2006 05/09/2014 documented as of this encounter (statuses as of 01/23/2023) [facility] History of Past illness Narrative* Problem Noted Date Diagnosed Date Resolved Date Osteoarthritis of right hip 06/03/2019 06/06/2019 Right flank pain 02/04/2013 05/09/2014 Right kidney stone 02/04/2013 5 Open fracture of distal phalangeal tuft 08/31/2011 05/09/2014 Ingrowing nail 11/26/2007 05/09/2014 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/02/2006 05/09/2014 documented as of this encounter (statuses as of 02/08/2023) [facility] History of Past illness Narrative* Problem Noted Date Diagnosed Date Resolved Date Osteoarthritis of right hip 06/03/2019 06/06/2019 Right flank pain 02/04/2013 05/09/2014 Right kidney stone 02/04/2013 5 Open fracture of distal phalangeal tuft 08/31/2011 05/09/2014 Ingrowing nail 11/26/2007 05/09/2014 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/02/2006 05/09/2014 documented as of this encounter (statuses as of 03/08/2023) [facility] History of Past illness Narrative* Problem Noted Date Diagnosed Date Resolved Date Osteoarthritis of right hip 06/03/2019 06/06/2019 Right flank pain 02/04/2013 05/09/2014 Right kidney stone 02/04/2013 5 Open fracture of distal phalangeal tuft 08/31/2011 05/09/2014 Ingrowing nail 11/26/2007 05/09/2014 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/02/2006 05/09/2014 documented as of this encounter (statuses as of 03/14/2023) [facility] History of Past illness Narrative* Problem Noted Date Diagnosed Date Resolved Date Osteoarthritis of right hip 06/03/2019 06/06/2019 Right flank pain 02/04/2013 05/09/2014 Right kidney stone 02/04/2013 5 Open fracture of distal phalangeal tuft 08/31/2011 05/09/2014 Ingrowing nail 11/26/2007 05/09/2014 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/02/2006 05/09/2014 documented as of this encounter (statuses as of 03/20/2023) [facility] History of Past illness Narrative* Problem Noted Date Diagnosed Date Resolved Date Osteoarthritis of right hip 06/03/2019 06/06/2019 Right flank pain 02/04/2013 05/09/2014 Right kidney stone 02/04/2013 5 Open fracture of distal phalangeal tuft 08/31/2011 05/09/2014 Ingrowing nail 11/26/2007 05/09/2014 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/02/2006 05/09/2014 documented as of this encounter (statuses as of 06/16/2023) [facility] History of Past illness Narrative* Problem Noted Date Diagnosed Date Resolved Date Osteoarthritis of right hip 06/03/2019 06/06/2019 Right flank pain 02/04/2013 05/09/2014 Right kidney stone 02/04/2013 5 Open fracture of distal phalangeal tuft 08/31/2011 05/09/2014 Ingrowing nail 11/26/2007 05/09/2014 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/02/2006 05/09/2014 documented as of this encounter (statuses as of 06/22/2023) [facility] History of Past illness Narrative* Problem Noted Date Diagnosed Date Resolved Date Osteoarthritis of right hip 06/03/2019 06/06/2019 Right flank pain 02/04/2013 05/09/2014 Right kidney stone 02/04/2013 5 Open fracture of distal phalangeal tuft 08/31/2011 05/09/2014 Ingrowing nail 11/26/2007 05/09/2014 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/02/2006 05/09/2014 documented as of this encounter (statuses as of 07/08/2023) [facility] History of Past illness Narrative* Problem Noted Date Diagnosed Date Resolved Date Osteoarthritis of right hip 06/03/2019 06/06/2019 Right flank pain 02/04/2013 05/09/2014 Right kidney stone 02/04/2013 5 Open fracture of distal phalangeal tuft 08/31/2011 05/09/2014 Ingrowing nail 11/26/2007 05/09/2014 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/02/2006 05/09/2014 documented as of this encounter (statuses as of 08/01/2023) [facility] Tevin Vizcaino [facility] Note Date/Time July 04, 2024 11:[address] [place] [address] Medical Records Department [address] [place] [id number] Anesthesia Postop Eval I 07/04/24 1059 MR#: [id number] Acct: [id number] Name: FRAN PAREKH Rep #:[id number] : 1945 78 From: Tevin Vizcaino PCP: Dr. Salvador Diaz MD Status :[facility] Race: C Location: [place] [address] Anesthesia: Postop Eval I Current Vital Signs Temperature: 97.9 F Pulse Rate: 72 Blood Pressure: 140/84 Respiratory Rate: 16 Pulse Ox: 95 Oxygen Delivery Method: Room Air Assessment Airway patent: Yes Spontaneous unlabored respirations: Yes Mental status: Awake and Calm nausea: No Vomiting: No Anesthesia Complication: No Fluid Hydration Crystalloid volume administer (ml): 60 Total IV fluid infused: 60 Progress Note Anesthesia document: Postop Eval 1 completed: Yes 07/04/24 1100 <Electronically signed by Tevin Vizcaino > Date _ Tevin Barron Signature: Date CC: ~ Signed [facility] Work Phone: Consult note Author Tevin Vizcaino [facility] Note Date/Time October 07, 2024 12:50 pm [facility] Medical Records Department [address] [facility] [place] [address] Anesthesia Postop Eval I 10/07/24 1249 MR#: [id number] Acct: [id number] Name: FRAN PAREKHEY Rep #:[id number] : 1945 79 From: Tevin Vizcaino PCP: Dr. Salvador Diaz MD Status :[facility] Race: C Location: [place] [address] Anesthesia: Postop Eval I Current Vital Signs Temperature: 97.8 F Pulse Rate: 67 Blood Pressure: 145/84 Respiratory Rate: 16 Pulse Ox: 95 Oxygen Delivery Method: Room Air Assessment Airway patent: Yes Spontaneous unlabored respirations: Yes Mental status: Awake and Calm nausea: No Vomiting: No Anesthesia Complication: No Fluid Hydration Crystalloid volume administer (ml): 600 Total IV fluid infused: 600 Progress Note Anesthesia document: Postop Eval 1 completed: Yes 10/07/24 1250 <Electronically signed by Tevin Vizcaino > Date _ Tevin Barron Signature: Date CC: ~ Signed [facility] Work Phone: Evaluation noteN/[facility]ept. of Dermatology Evaluation note* Diagnosis Cervical radiculopathy Brachial neuritis or radiculitis nos [facility] Diagnosis Need for vaccination- Primary Need for prophylactic vaccination and inoculation against unspecified single disease [facility] Diagnosis Need for vaccination- Primary Need for prophylactic vaccination and inoculation against unspecified single disease [facility] Diagnosis Acute otitis externa of right ear, unspecified type- Primary [facility]* Diagnosis Elevated glucose- Primary Other abnormal glucose [facility]* Diagnosis Stage 3b chronic kidney disease (HCC)- Primary [facility] Diagnosis Chronic bilateral low back pain with bilateral sciatica At high risk for falls Personal history of fall Age-related physical debility Senility without mention of psychosis Personal history of fall [facility] noteNo assessment information availableWGreen [facility] Work Phone: Evaluation note* Diagnosis ASHD (arteriosclerotic heart disease) Coronary atherosclerosis of unspecified type of vessel, ruby or graft Hyperlipidemia LDL goal <100 Other and unspecified hyperlipidemia [facility]* Diagnosis Chronic bilateral low back pain with bilateral sciatica- Primary Personal history of fall Age-related physical debility Senility without mention of psychosis [facility]* Diagnosis Chronic bilateral low back pain with bilateral sciatica- Primary Personal history of fall Age-related physical debility Senility without mention of psychosis [facility]* Diagnosis Chronic bilateral low back pain with bilateral sciatica- Primary Personal history of fall Age-related physical debility Senility without mention of psychosis [facility]* Diagnosis Chronic bilateral low back pain with bilateral sciatica- Primary Personal history of fall Age-related physical debility Senility without mention of psychosis [facility] Diagnosis Chronic bilateral low back pain with bilateral sciatica- Primary Personal history of fall Age-related physical debility Senility without mention of psychosis [facility] Diagnosis Chronic bilateral low back pain with bilateral sciatica- Primary Personal history of fall Age-related physical debility Senility without mention of psychosis [facility] Diagnosis Chronic bilateral low back pain with bilateral sciatica- Primary Personal history of fall Age-related physical debility Senility without mention of psychosis [facility] Chronic bilateral low back pain with bilateral sciatica- Primary Personal history of fall Age-related physical debility Senility without mention of psychosis [facility] Diagnosis MARTIN on CPAP- Primary Obstructive sleep apnea (adult) (pediatric) [facility]* Diagnosis Medicare annual wellness visit, subsequent- Primary Routine general medical examination at a [facility] care facility Essential hypertension, benign Stage 3b chronic kidney disease (HCC) Obesity, Class III, 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) Morbid obesity Acquired hypothyroidism Unspecified hypothyroidism Advance directive discussed with patient Other specified counseling MARTIN (obstructive sleep apnea) Obstructive sleep apnea (adult) (pediatric) [facility]* Diagnosis URI, acute- Primary Acute upper respiratory infections of unspecified site [facility]* Diagnosis Status post total replacement of right hip- Primary [facility]* Diagnosis Essential hypertension, benign [facility]* Diagnosis Essential hypertension, benign- Primary Hyperlipidemia [...] Coronary atherosclerosis of unspecified type of vessel, ruby or graft [facility] Diagnosis Essential hypertension, benign Stage 3b chronic kidney disease (HCC) Bilateral leg edema Edema ASHD (arteriosclerotic heart disease) Coronary atherosclerosis of unspecified type of vessel, ruby or graft [facility] Diagnosis Chronic bilateral low back pain with bilateral sciatica- Primary [facility] Diagnosis Chronic bilateral low back pain with bilateral sciatica- Primary [facility] Diagnosis Chronic bilateral low back pain with bilateral sciatica- Primary [facility] Diagnosis ASHD (arteriosclerotic heart disease) Coronary atherosclerosis of unspecified type of vessel, ruby or graft Hyperlipidemia LDL goal <100 Other and unspecified hyperlipidemia [facility] Diagnosis Chronic bilateral low back pain with bilateral sciatica- Primary [facility] Diagnosis Chronic bilateral low back pain with bilateral sciatica- Primary [facility] Diagnosis Chronic bilateral low back pain with bilateral sciatica- Primary [facility] Diagnosis Chronic bilateral low back pain with bilateral sciatica- Primary [facility] Diagnosis Chronic bilateral low back pain with bilateral sciatica- Primary [facility] Diagnosis Essential hypertension, benign [facility] Diagnosis ASHD (arteriosclerotic heart disease) Coronary atherosclerosis of unspecified type of vessel, ruby or graft Hyperlipidemia LDL goal <100 Other and unspecified hyperlipidemia [facility] Diagnosis Essential hypertension, benign- Primary [facility] Diagnosis Essential hypertension, benign- Primary Prediabetes Other abnormal glucose [facility]* Diagnosis Essential hypertension, benign [facility] Diagnosis Essential hypertension, benign [facility] Diagnosis Rash- Primary Rash and other nonspecific skin eruption [facility]* Diagnosis Acute saddle pulmonary embolism, unspecified whether acute cor pulmonale present (HCC)- Primary [facility]* Diagnosis Acute saddle pulmonary embolism, unspecified whether acute cor pulmonale present (HCC)- Primary Pulmonary HTN (HCC) Other chronic pulmonary heart diseases Acute deep vein thrombosis (DVT) of proximal vein of right lower extremity (HCC) Essential hypertension, benign MARTIN (obstructive sleep apnea) Obstructive sleep apnea (adult) (pediatric) Right leg swelling Swelling of limb [facility] Diagnosis Acute saddle pulmonary embolism, unspecified whether acute cor pulmonale present (HCC)- Primary Unsteady gait when walking [facility] Diagnosis Other secondary pulmonary hypertension (HCC)- Primary History of pulmonary embolism Personal history of pulmonary embolism [facility] Diagnosis Other secondary pulmonary hypertension (HCC) [facility]* Diagnosis Pre-operative examination- Primary Preoperative examination, unspecified Primary osteoarthritis of right hip Primary localized osteoarthrosis, pelvic region and thigh 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 Hyperlipidemia LDL goal <100 Other and unspecified hyperlipidemia Essential hypertension, benign ASHD (arteriosclerotic heart disease) Coronary atherosclerosis of unspecified type of vessel, ruby or graft Right lower lobe lung mass Swelling, mass, or lump in chest MARTIN (obstructive sleep apnea) Obstructive sleep apnea (adult) (pediatric) Mass of pancreas Unspecified disease of pancreas Right renal mass Unspecified disorder of kidney and ureter 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 and other lower urinary tract symptoms (LUTS) Acquired hypothyroidism Unspecified hypothyroidism Ankle edema, bilateral Class 2 obesity due to excess calories with body mass index (BMI) of 36.0 to 36.9 in adult, unspecified whether serious comorbidity present Unsteady gait- Primary Abnormality of gait Unsteady gait when walking [facility]* Diagnosis Pre-operative examination- Primary Preoperative examination, unspecified Primary osteoarthritis of right hip Primary localized osteoarthrosis, pelvic region and thigh 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 Hyperlipidemia LDL goal <100 Other and unspecified hyperlipidemia Essential hypertension, benign ASHD (arteriosclerotic heart disease) Coronary atherosclerosis of unspecified type of vessel, ruby or graft Right lower lobe lung mass Swelling, mass, or lump in chest MARTIN (obstructive sleep apnea) Obstructive sleep apnea (adult) (pediatric) Mass of pancreas Unspecified disease of pancreas Right renal mass Unspecified disorder of kidney and ureter 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 and other lower urinary tract symptoms (LUTS) Acquired hypothyroidism Unspecified hypothyroidism Ankle edema, bilateral Class 2 obesity due to excess calories with body mass index (BMI) of 36.0 to 36.9 in adult, unspecified whether serious comorbidity present History of venous thromboembolism- Primary Personal history of venous thrombosis and embolism 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 Long-term (current) use of anticoagulants BMI 38.0-38.9,adult Body Mass Index 38.0-38.9, adult Other secondary pulmonary hypertension (HCC) Lower extremity edema Edema Stage 3a chronic kidney disease (HCC) [facility] Diagnosis Pre-operative examination- Primary Preoperative examination, unspecified Primary osteoarthritis of right hip Primary localized osteoarthrosis, pelvic region and thigh 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 Hyperlipidemia LDL goal <100 Other and unspecified hyperlipidemia Essential hypertension, benign ASHD (arteriosclerotic heart disease) Coronary atherosclerosis of unspecified type of vessel, ruby or graft Right lower lobe lung mass Swelling, mass, or lump in chest MARTIN (obstructive sleep apnea) Obstructive sleep apnea (adult) (pediatric) Mass of pancreas Unspecified disease of pancreas Right renal mass Unspecified disorder of kidney and ureter 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 and other lower urinary tract symptoms (LUTS) Acquired hypothyroidism Unspecified hypothyroidism Ankle edema, bilateral Class 2 obesity due to excess calories with body mass index (BMI) of 36.0 to 36.9 in adult, unspecified whether serious comorbidity present Unsteady gait- Primary Abnormality of gait [facility] Diagnosis Pre-operative examination- Primary Preoperative examination, unspecified Primary osteoarthritis of right hip Primary localized osteoarthrosis, pelvic region and thigh 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 Hyperlipidemia LDL goal <100 Other and unspecified hyperlipidemia Essential hypertension, benign ASHD (arteriosclerotic heart disease) Coronary atherosclerosis of unspecified type of vessel, ruby or graft Right lower lobe lung mass Swelling, mass, or lump in chest MARTIN (obstructive sleep apnea) Obstructive sleep apnea (adult) (pediatric) Mass of pancreas Unspecified disease of pancreas Right renal mass Unspecified disorder of kidney and ureter 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 and other lower urinary tract symptoms (LUTS) Acquired hypothyroidism Unspecified hypothyroidism Ankle edema, bilateral Class 2 obesity due to excess calories with body mass index (BMI) of 36.0 to 36.9 in adult, unspecified whether serious comorbidity present Essential hypertension, benign [facility]* Diagnosis Pre-operative examination- Primary Preoperative examination, unspecified Primary osteoarthritis of right hip Primary localized osteoarthrosis, pelvic region and thigh 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 Hyperlipidemia LDL goal <100 Other and unspecified hyperlipidemia Essential hypertension, benign ASHD (arteriosclerotic heart disease) Coronary atherosclerosis of unspecified type of vessel, ruby or graft Right lower lobe lung mass Swelling, mass, or lump in chest MARTIN (obstructive sleep apnea) Obstructive sleep apnea (adult) (pediatric) Mass of pancreas Unspecified disease of pancreas Right renal mass Unspecified disorder of kidney and ureter 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 and other lower urinary tract symptoms (LUTS) Acquired hypothyroidism Unspecified hypothyroidism Ankle edema, bilateral Class 2 obesity due to excess calories with body mass index (BMI) of 36.0 to 36.9 in adult, unspecified whether serious comorbidity present Unsteady gait- Primary Abnormality of gait [facility]* Diagnosis Pre-operative examination- Primary Preoperative examination, unspecified Primary osteoarthritis of right hip Primary localized osteoarthrosis, pelvic region and thigh 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 Hyperlipidemia LDL goal <100 Other and unspecified hyperlipidemia Essential hypertension, benign ASHD (arteriosclerotic heart disease) Coronary atherosclerosis of unspecified type of vessel, ruby or graft Right lower lobe lung mass Swelling, mass, or lump in chest MARTIN (obstructive sleep apnea) Obstructive sleep apnea (adult) (pediatric) Mass of pancreas Unspecified disease of pancreas Right renal mass Unspecified disorder of kidney and ureter 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 and other lower urinary tract symptoms (LUTS) Acquired hypothyroidism Unspecified hypothyroidism Ankle edema, bilateral Class 2 obesity due to excess calories with body mass index (BMI) of 36.0 to 36.9 in adult, unspecified whether serious comorbidity present Unsteady gait- Primary Abnormality of gait [facility]* Diagnosis Pre-operative examination- Primary Preoperative examination, unspecified Primary osteoarthritis of right hip Primary localized osteoarthrosis, pelvic region and thigh 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 Hyperlipidemia LDL goal <100 Other and unspecified hyperlipidemia Essential hypertension, benign ASHD (arteriosclerotic heart disease) Coronary atherosclerosis of unspecified type of vessel, ruby or graft Right lower lobe lung mass Swelling, mass, or lump in chest MARTIN (obstructive sleep apnea) Obstructive sleep apnea (adult) (pediatric) Mass of pancreas Unspecified disease of pancreas Right renal mass Unspecified disorder of kidney and ureter 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 and other lower urinary tract symptoms (LUTS) Acquired hypothyroidism Unspecified hypothyroidism Ankle edema, bilateral Class 2 obesity due to excess calories with body mass index (BMI) of 36.0 to 36.9 in adult, unspecified whether serious comorbidity present Chronic bilateral low back pain with bilateral sciatica [facility] Diagnosis Pre-operative examination- Primary Preoperative examination, unspecified Primary osteoarthritis of right hip Primary localized osteoarthrosis, pelvic region and thigh 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 Hyperlipidemia LDL goal <100 Other and unspecified hyperlipidemia Essential hypertension, benign ASHD (arteriosclerotic heart disease) Coronary atherosclerosis of unspecified type of vessel, ruby or graft Right lower lobe lung mass Swelling, mass, or lump in chest MARTIN (obstructive sleep apnea) Obstructive sleep apnea (adult) (pediatric) Mass of pancreas Unspecified disease of pancreas Right renal mass Unspecified disorder of kidney and ureter 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 and other lower urinary tract symptoms (LUTS) Acquired hypothyroidism Unspecified hypothyroidism Ankle edema, bilateral Class 2 obesity due to excess calories with body mass index (BMI) of 36.0 to 36.9 in adult, unspecified whether serious comorbidity present Other secondary pulmonary hypertension (HCC) History of pulmonary embolism Personal history of pulmonary embolism [facility]* Diagnosis Pre-operative examination- Primary Preoperative examination, unspecified Primary osteoarthritis of right hip Primary localized osteoarthrosis, pelvic region and thigh 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 Hyperlipidemia LDL goal <100 Other and unspecified hyperlipidemia Essential hypertension, benign ASHD (arteriosclerotic heart disease) Coronary atherosclerosis of unspecified type of vessel, ruby or graft Right lower lobe lung mass Swelling, mass, or lump in chest MARTIN (obstructive sleep apnea) Obstructive sleep apnea (adult) (pediatric) Mass of pancreas Unspecified disease of pancreas Right renal mass Unspecified disorder of kidney and ureter 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 and other lower urinary tract symptoms (LUTS) Acquired hypothyroidism Unspecified hypothyroidism Ankle edema, bilateral Class 2 obesity due to excess calories with body mass index (BMI) of 36.0 to 36.9 in adult, unspecified whether serious comorbidity present Unsteady gait- Primary Abnormality of gait [facility]* Diagnosis Pre-operative examination- Primary Preoperative examination, unspecified Primary osteoarthritis of right hip Primary localized osteoarthrosis, pelvic region and thigh 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 Hyperlipidemia LDL goal <100 Other and unspecified hyperlipidemia Essential hypertension, benign ASHD (arteriosclerotic heart disease) Coronary atherosclerosis of unspecified type of vessel, ruby or graft Right lower lobe lung mass Swelling, mass, or lump in chest MARTIN (obstructive sleep apnea) Obstructive sleep apnea (adult) (pediatric) Mass of pancreas Unspecified disease of pancreas Right renal mass Unspecified disorder of kidney and ureter 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 and other lower urinary tract symptoms (LUTS) Acquired hypothyroidism Unspecified hypothyroidism Ankle edema, bilateral Class 2 obesity due to excess calories with body mass index (BMI) of 36.0 to 36.9 in adult, unspecified whether serious comorbidity present Acute pain of right knee- Primary History of pulmonary embolism Personal history of pulmonary embolism BMI 38.0-38.9,adult Body Mass Index 38.0-38.9, adult History of venous thromboembolism Personal history of venous thrombosis and embolism Stage 3a chronic kidney disease (HCC) MARTIN (obstructive sleep apnea) Obstructive sleep apnea (adult) (pediatric) [facility] Diagnosis Pre-operative examination- Primary Preoperative examination, unspecified Primary osteoarthritis of right hip Primary localized osteoarthrosis, pelvic region and thigh 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 Hyperlipidemia LDL goal <100 Other and unspecified hyperlipidemia Essential hypertension, benign ASHD (arteriosclerotic heart disease) Coronary atherosclerosis of unspecified type of vessel, ruby or graft Right lower lobe lung mass Swelling, mass, or lump in chest MARTIN (obstructive sleep apnea) Obstructive sleep apnea (adult) (pediatric) Mass of pancreas Unspecified disease of pancreas Right renal mass Unspecified disorder of kidney and ureter 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 and other lower urinary tract symptoms (LUTS) Acquired hypothyroidism Unspecified hypothyroidism Ankle edema, bilateral Class 2 obesity due to excess calories with body mass index (BMI) of 36.0 to 36.9 in adult, unspecified whether serious comorbidity present Pain- Primary Generalized pain [facility]* Diagnosis Pre-operative examination- Primary Preoperative examination, unspecified Primary osteoarthritis of right hip Primary localized osteoarthrosis, pelvic region and thigh 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 Hyperlipidemia LDL goal <100 Other and unspecified hyperlipidemia Essential hypertension, benign ASHD (arteriosclerotic heart disease) Coronary atherosclerosis of unspecified type of vessel, ruby or graft Right lower lobe lung mass Swelling, mass, or lump in chest MARTIN (obstructive sleep apnea) Obstructive sleep apnea (adult) (pediatric) Mass of pancreas Unspecified disease of pancreas Right renal mass Unspecified disorder of kidney and ureter 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 and other lower urinary tract symptoms (LUTS) Acquired hypothyroidism Unspecified hypothyroidism Ankle edema, bilateral Class 2 obesity due to excess calories with body mass index (BMI) of 36.0 to 36.9 in adult, unspecified whether serious comorbidity present Acute pain of right knee [facility]* Diagnosis Pre-operative examination- Primary Preoperative examination, unspecified Primary osteoarthritis of right hip Primary localized osteoarthrosis, pelvic region and thigh 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 Hyperlipidemia LDL goal <100 Other and unspecified hyperlipidemia Essential hypertension, benign ASHD (arteriosclerotic heart disease) Coronary atherosclerosis of unspecified type of vessel, ruby or graft Right lower lobe lung mass Swelling, mass, or lump in chest MARTIN (obstructive sleep apnea) Obstructive sleep apnea (adult) (pediatric) Mass of pancreas Unspecified disease of pancreas Right renal mass Unspecified disorder of kidney and ureter 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 and other lower urinary tract symptoms (LUTS) Acquired hypothyroidism Unspecified hypothyroidism Ankle edema, bilateral Class 2 obesity due to excess calories with body mass index (BMI) of 36.0 to 36.9 in adult, unspecified whether serious comorbidity present Pain and swelling of right lower leg [facility]* Diagnosis Pre-operative examination- Primary Preoperative examination, unspecified Primary osteoarthritis of right hip Primary localized osteoarthrosis, pelvic region and thigh 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 Hyperlipidemia LDL goal <100 Other and unspecified hyperlipidemia Essential hypertension, benign ASHD (arteriosclerotic heart disease) Coronary atherosclerosis of unspecified type of vessel, ruby or graft Right lower lobe lung mass Swelling, mass, or lump in chest MARTIN (obstructive sleep apnea) Obstructive sleep apnea (adult) (pediatric) Mass of pancreas Unspecified disease of pancreas Right renal mass Unspecified disorder of kidney and ureter 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 and other lower urinary tract symptoms (LUTS) Acquired hypothyroidism Unspecified hypothyroidism Ankle edema, bilateral Class 2 obesity due to excess calories with body mass index (BMI) of 36.0 to 36.9 in adult, unspecified whether serious comorbidity present Pain and swelling of right lower leg- Primary Cellulitis of skin Cellulitis and abscess of unspecified site [facility]* Diagnosis Pre-operative examination- Primary Preoperative examination, unspecified Primary osteoarthritis of right hip Primary localized osteoarthrosis, pelvic region and thigh 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 Hyperlipidemia LDL goal <100 Other and unspecified hyperlipidemia Essential hypertension, benign ASHD (arteriosclerotic heart disease) Coronary atherosclerosis of unspecified type of vessel, ruby or graft Right lower lobe lung mass Swelling, mass, or lump in chest MARTIN (obstructive sleep apnea) Obstructive sleep apnea (adult) (pediatric) Mass of pancreas Unspecified disease of pancreas Right renal mass Unspecified disorder of kidney and ureter 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 and other lower urinary tract symptoms (LUTS) Acquired hypothyroidism Unspecified hypothyroidism Ankle edema, bilateral Class 2 obesity due to excess calories with body mass index (BMI) of 36.0 to 36.9 in adult, unspecified whether serious comorbidity present Pain and swelling of right lower leg- Primary Acute pain of right knee [facility] Diagnosis Pre-operative examination- Primary Preoperative examination, unspecified Primary osteoarthritis of right hip Primary localized osteoarthrosis, pelvic region and thigh 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 Hyperlipidemia LDL goal <100 Other and unspecified hyperlipidemia Essential hypertension, benign ASHD (arteriosclerotic heart disease) Coronary atherosclerosis of unspecified type of vessel, ruby or graft Right lower lobe lung mass Swelling, mass, or lump in chest MARTIN (obstructive sleep apnea) Obstructive sleep apnea (adult) (pediatric) Mass of pancreas Unspecified disease of pancreas Right renal mass Unspecified disorder of kidney and ureter 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 and other lower urinary tract symptoms (LUTS) Acquired hypothyroidism Unspecified hypothyroidism Ankle edema, bilateral Class 2 obesity due to excess calories with body mass index (BMI) of 36.0 to 36.9 in adult, unspecified whether serious comorbidity present Acute pain of right knee [facility]* Diagnosis Pre-operative examination- Primary Preoperative examination, unspecified Primary osteoarthritis of right hip Primary localized osteoarthrosis, pelvic region and thigh 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 Hyperlipidemia LDL goal <100 Other and unspecified hyperlipidemia Essential hypertension, benign ASHD (arteriosclerotic heart disease) Coronary atherosclerosis of unspecified type of vessel, ruby or graft Right lower lobe lung mass Swelling, mass, or lump in chest MARTIN (obstructive sleep apnea) Obstructive sleep apnea (adult) (pediatric) Mass of pancreas Unspecified disease of pancreas Right renal mass Unspecified disorder of kidney and ureter 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 and other lower urinary tract symptoms (LUTS) Acquired hypothyroidism Unspecified hypothyroidism Ankle edema, bilateral Class 2 obesity due to excess calories with body mass index (BMI) of 36.0 to 36.9 in adult, unspecified whether serious comorbidity present Pain and swelling of right lower leg- Primary Pain and swelling of right lower leg [facility] Diagnosis Pre-operative examination- Primary Preoperative examination, unspecified Primary osteoarthritis of right hip Primary localized osteoarthrosis, pelvic region and thigh 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 Hyperlipidemia LDL goal <100 Other and unspecified hyperlipidemia Essential hypertension, benign ASHD (arteriosclerotic heart disease) Coronary atherosclerosis of unspecified type of vessel, ruby or graft Right lower lobe lung mass Swelling, mass, or lump in chest MARTIN (obstructive sleep apnea) Obstructive sleep apnea (adult) (pediatric) Mass of pancreas Unspecified disease of pancreas Right renal mass Unspecified disorder of kidney and ureter 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 and other lower urinary tract symptoms (LUTS) Acquired hypothyroidism Unspecified hypothyroidism Ankle edema, bilateral Class 2 obesity due to excess calories with body mass index (BMI) of 36.0 to 36.9 in adult, unspecified whether serious comorbidity present Cellulitis of right leg- Primary Cellulitis and abscess of leg, except foot Tear of medial meniscus of right knee, current, unspecified tear type, initial encounter Right leg swelling Swelling of limb [facility]* Diagnosis Pre-operative examination- Primary Preoperative examination, unspecified Primary osteoarthritis of right hip Primary localized osteoarthrosis, pelvic region and thigh 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 Hyperlipidemia LDL goal <100 Other and unspecified hyperlipidemia Essential hypertension, benign ASHD (arteriosclerotic heart disease) Coronary atherosclerosis of unspecified type of vessel, ruby or graft Right lower lobe lung mass Swelling, mass, or lump in chest MARTIN (obstructive sleep apnea) Obstructive sleep apnea (adult) (pediatric) Mass of pancreas Unspecified disease of pancreas Right renal mass Unspecified disorder of kidney and ureter 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 and other lower urinary tract symptoms (LUTS) Acquired hypothyroidism Unspecified hypothyroidism Ankle edema, bilateral Class 2 obesity due to excess calories with body mass index (BMI) of 36.0 to 36.9 in adult, unspecified whether serious comorbidity present Upper back pain- Primary Immunization due Need for prophylactic vaccination and inoculation against unspecified single disease Right leg swelling Swelling of limb [facility]* Diagnosis Pre-operative examination- Primary Preoperative examination, unspecified Primary osteoarthritis of right hip Primary localized osteoarthrosis, pelvic region and thigh 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 Hyperlipidemia LDL goal <100 Other and unspecified hyperlipidemia Essential hypertension, benign ASHD (arteriosclerotic heart disease) Coronary atherosclerosis of unspecified type of vessel, ruby or graft Right lower lobe lung mass Swelling, mass, or lump in chest MARTIN (obstructive sleep apnea) Obstructive sleep apnea (adult) (pediatric) Mass of pancreas Unspecified disease of pancreas Right renal mass Unspecified disorder of kidney and ureter 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 and other lower urinary tract symptoms (LUTS) Acquired hypothyroidism Unspecified hypothyroidism Ankle edema, bilateral Class 2 obesity due to excess calories with body mass index (BMI) of 36.0 to 36.9 in adult, unspecified whether serious comorbidity present Essential hypertension, benign [facility]* Diagnosis Pre-operative examination- Primary Preoperative examination, unspecified Primary osteoarthritis of right hip Primary localized osteoarthrosis, pelvic region and thigh 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 Hyperlipidemia LDL goal <100 Other and unspecified hyperlipidemia Essential hypertension, benign ASHD (arteriosclerotic heart disease) Coronary atherosclerosis of unspecified type of vessel, ruby or graft Right lower lobe lung mass Swelling, mass, or lump in chest MARTIN (obstructive sleep apnea) Obstructive sleep apnea (adult) (pediatric) Mass of pancreas Unspecified disease of pancreas Right renal mass Unspecified disorder of kidney and ureter 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 and other lower urinary tract symptoms (LUTS) Acquired hypothyroidism Unspecified hypothyroidism Ankle edema, bilateral Class 2 obesity due to excess calories with body mass index (BMI) of 36.0 to 36.9 in adult, unspecified whether serious comorbidity present Hospital discharge follow-up- Primary Other follow-up examination Calculus of bile duct without cholecystitis with obstruction Fall in home, subsequent encounter Traumatic ecchymosis of abdominal wall, subsequent encounter [facility] Diagnosis Pre-operative examination- Primary Preoperative examination, unspecified Primary osteoarthritis of right hip Primary localized osteoarthrosis, pelvic region and thigh 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 Hyperlipidemia LDL goal <100 Other and unspecified hyperlipidemia Essential hypertension, benign ASHD (arteriosclerotic heart disease) Coronary atherosclerosis of unspecified type of vessel, ruby or graft Right lower lobe lung mass Swelling, mass, or lump in chest MARTIN (obstructive sleep apnea) Obstructive sleep apnea (adult) (pediatric) Mass of pancreas Unspecified disease of pancreas Right renal mass Unspecified disorder of kidney and ureter 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 and other lower urinary tract symptoms (LUTS) Acquired hypothyroidism Unspecified hypothyroidism Ankle edema, bilateral Class 2 obesity due to excess calories with body mass index (BMI) of 36.0 to 36.9 in adult, unspecified whether serious comorbidity present Essential hypertension, benign [facility] Diagnosis 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 Hyperlipidemia LDL goal <100 Other and unspecified hyperlipidemia Essential hypertension, benign ASHD (arteriosclerotic heart disease) Coronary atherosclerosis of unspecified type of vessel, ruby or graft Right lower lobe lung mass Swelling, mass, or lump in chest MARTIN (obstructive sleep apnea) Obstructive sleep apnea (adult) (pediatric) Mass of pancreas (HCC) Unspecified disease of pancreas Right renal mass Unspecified disorder of kidney and ureter 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 and other lower urinary tract symptoms (LUTS) Acquired hypothyroidism Unspecified hypothyroidism Ankle edema, bilateral Class 2 obesity due to excess calories with body mass index (BMI) of 36.0 to 36.9 in adult, unspecified whether serious comorbidity present Essential hypertension, benign [facility] Diagnosis Pre-operative examination- Primary Preoperative examination, unspecified Primary osteoarthritis of right hip Primary localized osteoarthrosis, pelvic region and thigh 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 Hyperlipidemia LDL goal <100 Other and unspecified hyperlipidemia Essential hypertension, benign ASHD (arteriosclerotic heart disease) Coronary atherosclerosis of unspecified type of vessel, ruby or graft Right lower lobe lung mass Swelling, mass, or lump in chest MARTIN (obstructive sleep apnea) Obstructive sleep apnea (adult) (pediatric) Mass of pancreas (HCC) Unspecified disease of pancreas Right renal mass Unspecified disorder of kidney and ureter 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 and other lower urinary tract symptoms (LUTS) Acquired hypothyroidism Unspecified hypothyroidism Ankle edema, bilateral Class 2 obesity due to excess calories with body mass index (BMI) of 36.0 to 36.9 in adult, unspecified whether serious comorbidity present Essential hypertension, benign [facility]* Diagnosis Pre-operative examination- Primary Preoperative examination, unspecified Primary osteoarthritis of right hip Primary localized osteoarthrosis, pelvic region and thigh 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 Hyperlipidemia LDL goal <100 Other and unspecified hyperlipidemia Essential hypertension, benign ASHD (arteriosclerotic heart disease) Coronary atherosclerosis of unspecified type of vessel, ruby or graft Right lower lobe lung mass Swelling, mass, or lump in chest MARTIN (obstructive sleep apnea) Obstructive sleep apnea (adult) (pediatric) Mass of pancreas (HCC) Unspecified disease of pancreas Right renal mass Unspecified disorder of kidney and ureter 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 and other lower urinary tract symptoms (LUTS) Acquired hypothyroidism Unspecified hypothyroidism Ankle edema, bilateral Class 2 obesity due to excess calories with body mass index (BMI) of 36.0 to 36.9 in adult, unspecified whether serious comorbidity present Essential hypertension, benign- Primary Pulmonary HTN (HCC) Other chronic pulmonary heart diseases MARTIN (obstructive sleep apnea) Obstructive sleep apnea (adult) (pediatric) Prediabetes Other abnormal glucose Hyperlipidemia LDL goal <100 Other and unspecified hyperlipidemia Obesity, Class III, 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) Morbid obesity Acquired hypothyroidism Unspecified hypothyroidism Stage 3b chronic kidney disease (HCC) History of pulmonary embolus (PE) Personal history of pulmonary embolism [facility]* Diagnosis Pre-operative examination- Primary Preoperative examination, unspecified Primary osteoarthritis of right hip Primary localized osteoarthrosis, pelvic region and thigh 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 Hyperlipidemia LDL goal <100 Other and unspecified hyperlipidemia Essential hypertension, benign ASHD (arteriosclerotic heart disease) Coronary atherosclerosis of unspecified type of vessel, ruby or graft Right lower lobe lung mass Swelling, mass, or lump in chest MARTIN (obstructive sleep apnea) Obstructive sleep apnea (adult) (pediatric) Mass of pancreas (HCC) Unspecified disease of pancreas Right renal mass Unspecified disorder of kidney and ureter 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 and other lower urinary tract symptoms (LUTS) Acquired hypothyroidism Unspecified hypothyroidism Ankle edema, bilateral Class 2 obesity due to excess calories with body mass index (BMI) of 36.0 to 36.9 in adult, unspecified whether serious comorbidity present Acquired hypothyroidism- Primary Unspecified hypothyroidism [facility]* Diagnosis Pre-operative examination- Primary Preoperative examination, unspecified Primary osteoarthritis of right hip Primary localized osteoarthrosis, pelvic region and thigh 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 Hyperlipidemia LDL goal <100 Other and unspecified hyperlipidemia Essential hypertension, benign ASHD (arteriosclerotic heart disease) Coronary atherosclerosis of unspecified type of vessel, ruby or graft Right lower lobe lung mass Swelling, mass, or lump in chest MARTIN (obstructive sleep apnea) Obstructive sleep apnea (adult) (pediatric) Mass of pancreas (HCC) Unspecified disease of pancreas Right renal mass Unspecified disorder of kidney and ureter 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 and other lower urinary tract symptoms (LUTS) Acquired hypothyroidism Unspecified hypothyroidism Ankle edema, bilateral Class 2 obesity due to excess calories with body mass index (BMI) of 36.0 to 36.9 in adult, unspecified whether serious comorbidity present Abdominal pain, unspecified abdominal location- Primary [facility]* Diagnosis Pre-operative examination- Primary Preoperative examination, unspecified Primary osteoarthritis of right hip Primary localized osteoarthrosis, pelvic region and thigh 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 Hyperlipidemia LDL goal <100 Other and unspecified hyperlipidemia Essential hypertension, benign ASHD (arteriosclerotic heart disease) Coronary atherosclerosis of unspecified type of vessel, ruby or graft Right lower lobe lung mass Swelling, mass, or lump in chest MARTIN (obstructive sleep apnea) Obstructive sleep apnea (adult) (pediatric) Mass of pancreas (HCC) Unspecified disease of pancreas Right renal mass Unspecified disorder of kidney and ureter 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 and other lower urinary tract symptoms (LUTS) Acquired hypothyroidism Unspecified hypothyroidism Ankle edema, bilateral Class 2 obesity due to excess calories with body mass index (BMI) of 36.0 to 36.9 in adult, unspecified whether serious comorbidity present History of pulmonary embolism- Primary Personal history of pulmonary embolism BMI 38.0-38.9,adult Body Mass Index 38.0-38.9, adult History of venous thromboembolism Personal history of venous thrombosis and embolism Stage 3a chronic kidney disease (HCC) Venous insufficiency (chronic) (peripheral) Unspecified venous (peripheral) insufficiency [facility] Diagnosis Pre-operative examination- Primary Preoperative examination, unspecified Primary osteoarthritis of right hip Primary localized osteoarthrosis, pelvic region and thigh 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 Hyperlipidemia LDL goal <100 Other and unspecified hyperlipidemia Essential hypertension, benign ASHD (arteriosclerotic heart disease) Coronary atherosclerosis of unspecified type of vessel, ruby or graft Right lower lobe lung mass Swelling, mass, or lump in chest MARTIN (obstructive sleep apnea) Obstructive sleep apnea (adult) (pediatric) Mass of pancreas (HCC) Unspecified disease of pancreas Right renal mass Unspecified disorder of kidney and ureter 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 and other lower urinary tract symptoms (LUTS) Acquired hypothyroidism Unspecified hypothyroidism Ankle edema, bilateral Class 2 obesity due to excess calories with body mass index (BMI) of 36.0 to 36.9 in adult, unspecified whether serious comorbidity present Left hand pain- Primary Pain in limb Left wrist pain Pain in joint, forearm Left hand pain Pain in limb Left wrist pain Pain in joint, forearm [facility]* Diagnosis Pre-operative examination- Primary Preoperative examination, unspecified Primary osteoarthritis of right hip Primary localized osteoarthrosis, pelvic region and thigh 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 Hyperlipidemia LDL goal <100 Other and unspecified hyperlipidemia Essential hypertension, benign ASHD (arteriosclerotic heart disease) Coronary atherosclerosis of unspecified type of vessel, ruby or graft Right lower lobe lung mass Swelling, mass, or lump in chest MARTIN (obstructive sleep apnea) Obstructive sleep apnea (adult) (pediatric) Mass of pancreas (HCC) Unspecified disease of pancreas Right renal mass Unspecified disorder of kidney and ureter 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 and other lower urinary tract symptoms (LUTS) Acquired hypothyroidism Unspecified hypothyroidism Ankle edema, bilateral Class 2 obesity due to excess calories with body mass index (BMI) of 36.0 to 36.9 in adult, unspecified whether serious comorbidity present Left hand pain Pain in limb Left wrist pain Pain in joint, forearm [facility] Author Alex Friend [facility] Note Date/Time July 04, 2024 10:0 1am [facility] Medical Records Department [address] [place] [address] History & Physical Exam 07/04/24 0957 MR#: [id number] Acct: [id number] Name: FRAN PAREKH Rep #:[id number] : [id number] From: Alex Sher DO PCP: Dr. Salvador Diaz MD Status :[facility] Location: [place] [address] HPI - General General Date of Admission: 07/04/24 Date of Service: 07/04/24 Chief Complaint: Biliary stent removal HPI Narrative FRAN PAREKH, is a 78 M who presents for ERCP with stent removal. [facility] hospitalization 03.26.24 - 03.28.24 dizziness - consulted for pancreatitis abd/pelvis CT 03.26.24 Lobulated 6 cm pancreatic tail hypoattenuating, cystic appearing lesion previously measuring only up to 3 cm. Cystic neoplastic process is not excluded. Severe distal colonic diverticulosis without focus of diverticulitis. 3 cm exophytic anterior right interpolar renal lesion which does not measure simple fluid attenuation. Recommend nonemergent follow-up renal ultrasound to better characterize as solid neoplastic process is not 6excluded. Gall Bladder US 03.26.24 Fatty infiltration of the liver. MRCP 03.26.24 1. Normal gallbladder and biliary tree. 2. 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 ERCP 03.27.24 The entire main bile duct and left main hepatic duct were dilated, with a stone causing an obstruction. Choledocholithiasis was found. Complete removal was accomplished by biliary sphincterotomy and balloon extraction. A pancreatic sphincterotomy was performed. The ventral pancreatic duct was swept and debris was found. A biliary sphincterotomy was performed. Thebiliary tree was swept. One temporary stent was placed into the common bile duct. OV 12 pt reports that he is feeling well overall and denies GI symptoms ofconcern at this time. Pt states that he has not had any symptoms since hospitalization. Would like to know when his stent will be removed. [facility] Medical History Carpal tunnel syndrome on both sides Cancer Wears glasses Thyroid disease Shingles Inguinal hernia Cardiology follow-up encounter History of stress test Choledocholithiasis Current use of chcf 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 Elevated liver enzymes Pancreatic mass High cholesterol Hx of gastroesophageal reflux (GERD) Hypothyroidism Hypertension Home Medications ?Medication ?Instructions ?Recorded ?Last Taken ?Type lisinopril 40 mg tablet 40 mg PO DAILY blood pressur e 01/31/13 07/03/24 History atorvastatin 40 mg tablet 40 mg PO QHS cholesterol #90 09/05/16 07/03/24 Rx TABLETS gabapentin 300 mg capsule 300 mg PO QHS nerve pain 07/03/24 History metoprolol succinate 50 mg 50 mg PO DAILY blood pressu re 10/22/23 07/03/24 History tablet,extended release 24 hr apixaban 5 mg tablet (Eliquis) 5 mg PO BID blood thinn er 03/26/24 07/02/24 History hydrochlorothiazide 25 mg tablet 25 mg PO DAILY reduce fluid 03/26/24 07/03/24 History levothyroxine 125 mcg tablet 125 mcg PO DAILY disorder of 03/26/24 07/03/24 History thyroid gland Allergy/AdvReac Type Severity Reaction Status Date / Time azithromycin (From Zithromax) Allergy Itching Verified 07/04/24 08:42 bee venom protein (honey bee) AdvReac Swelling Verified 07/04/24 08:42 venom-wasp (wasps) AdvReac Swelling Verified 07/04/24 08:42 Surgical History History of total right hip arthroplasty S/P carpal tunnel release History of tonsillectomy History of ERCP Social History Smoking Status: Never smoker ROS Constitutional Constitutional: Denies fatigue, fever(s), poor appetite, weight gain or weight loss Gastrointestinal Gastrointestinal: Denies belching, bloating, change in bowel habits, change in stool character, chewing difficulty, coffee ground emesis, constipation, cramping, diarrhea, dyspepsia, dysphagia, early satiety, excessive flatus, fecalincontinence, heartburn, hematemesis, hematochezia, hemorrhoids, loose stools, melena, nausea, odynophagia, rectal bleeding, tenesmus, vomiting or weight changes Vital Signs Vital Signs Vital Signs: 07/04/24 08:49 07/04/24 08:49 07/04/24 09:43 Temperature 97.4 F L 97.4 F L Temperature Source Temporal Pulse Rate 57 L 57 L Respiratory Rate 12 12 Respiratory Pattern Normal Blood Pressure 136/78 H 136/78 H Blood Pressure Mean 97 Blood Pressure Source Monitor Blood Pressure Position Semi-Fowlers Blood Pressure Location Left Arm Pulse Ox 97 97 Oxygen Delivery Method Room Air Room Air Weight Weight: 293 lb 3.437 oz Body Mass Index (BMI) 42.0 Physical Exam Const alert, oriented x3, no apparent distress and healthy appearing General Appearance: cooperative GI normal to inspection, nondistended, normoactive bowel sounds, soft to palpation,non-tender and non-distended Percussion: normal to percussion Rectal Exam: deferred Assessment & Plan Assessment/Plan (1) Choledocholithiasis: (2) Biliary stricture: PLAN: 78-year-old gentleman who presented to the emergency room with abdominal pain, jaundice and discovered to have elevated LFTs and biochemical and radiologic evidence of 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 He was also discovered to have multiple pancreatic cysts with the largest one being in the pancreatic tail at 4.2 cm. Differential diagnosis for this would be pseudocyst from previous episodes of acute pancreatitis, less likely serous cystoadenoma, IPMN and less likely mucinous cystoadenoma. He underwent ERCP with stone removal and temporary stent placement for biliary stricture. He will have repeat ERCP with stent removal. He will need repeat MRCP or MRI of the abdomen in approximately 6 to 12 months to look at the multiple cyst in the pancreas. 07/04/24 1001 <Electronically signed by Alex Sher DO> Cosigner Signature (if applicable): CC: Dr. Salvador Diaz MD; Alex Sher DO~ Signed [facility] Work Phone: Reason for referral (narrative)* Name Reason for referral NA RO[facility] Dept. of Dermatology Reason for referral (narrative)* Diagnostic Procedure Only (Routine) - Closed Specialty Diagnoses / Procedures Referred By Contac t Referred To Contact MOLECULAR & FUNCTIONAL IMAGING Diagnoses Other secondary pulmonary hypertension (HCC) Procedures NM LUNG VENT / PERF VQ PULMONARY VENTILATION & [place] [address] [place] [address] [facility] [address] [place] [address] Referral ID Status Reason Start Date Expiration Date V isits Requested Visits Authorized [id number] Closed Auto-Generate d Referral 11/09/2023 12/08/2024 1 1 [facility] for referral (narrative)* Diagnostic Procedure Only (Routine) - Closed Specialty Diagnoses / Procedures Referred By Contac t Referred To Contact XR IMAGING Diagnoses Chronic bilateral low back pain with bilateral sciatica Procedures XR LUMBAR GENERAL 3V AP/LAT/L5-S1 RADEX SPINE LUMBOSACRAL 2/3 VIEWS PodlogarMarilia APRN.SUPERVISOR [address] [place] [address] [place] [address] Referral ID Status Reason Start Date Expiration Date V isits Requested Visits Authorized [id number] Closed Auto-Generate d Referral 05/15/2023 06/13/2024 1 1 [facility] for referral (narrative)* Diagnostic Procedure Only (Urgent) - Closed Specialty Diagnoses / Procedures Referred By Contac t Referred To Contact US IMAGING Diagnoses Pain and swelling of right lower leg Procedures US DVT LOWER RIGHT DUP-SCAN XTR VEINS UNILATERAL/LIMITED STUDY PodlogarMarilia APRN.SUPERVISOR [address] [place] [address] [place] [address] Referral ID Status Reason Start Date Expiration Date V isits Requested Visits Authorized [id number] Closed Auto-Generate d Referral 01/19/2024 02/17/2025 1 1 [facility] for referral (narrative)* Diagnostic Procedure Only (Urgent) - Closed Specialty Diagnoses / Procedures Referred By Panda richards Referred To Contact US IMAGING Diagnoses Pain and swelling of right lower leg Procedures US DVT LOWER RIGHT DUP-SCAN XTR VEINS UNILATERAL/LIMITED STUDY PodlogarMarilia APRN.SUPERVISOR [address] [place] [address] [place] [id number] Referral ID Status Reason Start Date Expiration Date V isits Requested Visits Authorized [id number] Closed Auto-Generate d Referral 01/19/2024 02/17/2025 1 1 [facility] for referral (narrative)No reason for referral [facility] Work Phone: Reason for visit Narrative* Outpatient Procedure (Routine) - Closed Specialty Diagnoses / Procedures Referred By Panda richards Referred To Contact [facility] Diagnoses Essential hypertension, benign Stage 3b chronic kidney disease (HCC) Bilateral leg edema ASHD (arteriosclerotic heart disease) Procedures ECHO ECHO TTHRC R-T 2D W/WOM-MODE COMPL SPEC&COLR D PodlogMarilia stuart APRN.SUPERVISOR [address] [place] [address] [facility] [place] [address] [place] [address] Referral ID Status Reason Start Date Expiration Date V isits Requested Visits Authorized [id number] Closed Auto-Generate d Referral 11/02/2022 11/02/2023 1 1 [facility] for visit Narrative* Diagnostic Procedure Only (Routine) - Closed Specialty Diagnoses / Procedures Referred By Panda richards Referred To Contact MOLECULAR & FUNCTIONAL IMAGING Diagnoses Other secondary pulmonary hypertension (HCC) Procedures NM LUNG VENT / PERF VQ PULMONARY VENTILATION & [place]US[place] [address] [place] [address] Molecular [facility] Functional Imaging [address] [place] [id number] Referral ID Status Reason Start Date Expiration Date V isits Requested Visits Authorized [id number] Closed Auto-Generate d Referral 11/09/2023 12/08/2024 1 1 [facility] for visit Narrative* Diagnostic Procedure Only (Routine) - Closed Specialty Diagnoses / Procedures Referred By Contac t Referred To Contact XR IMAGING Diagnoses Chronic bilateral low back pain with bilateral sciatica Procedures XR LUMBAR GENERAL 3V AP/LAT/L5-S1 RADEX SPINE LUMBOSACRAL 2/3 VIEWS Podlogar, SELENE Capellan.SUPERVISOR [address] [place] [address] Xr Imaging [id number] Referral ID Status Reason Start Date Expiration Date V isits Requested Visits Authorized [id number] Closed Auto-Generate d Referral 05/15/2023 06/13/2024 1 1 [facility] for visit Narrative* Outpatient Procedure (Routine) - Closed Specialty Diagnoses / Procedures Referred By Contac t Referred To Contact [facility] Diagnoses Other secondary pulmonary hypertension (HCC) History of pulmonary embolism Procedures ECHO ECHO TTHRC R-T 2D W/WOM-MODE COMPL SPEC&[place] [address] [place] [id number] [facility] [place] [address] [place] [address] Referral ID Status Reason Start Date Expiration Date V isits Requested Visits Authorized [id number] Closed Auto-Generate d Referral 11/09/2023 11/08/2024 1 1 [facility] for visit Narrative* Diagnostic Procedure Only (Routine) - Closed Specialty Diagnoses / Procedures Referred By Contac t Referred To Contact XR IMAGING Diagnoses Acute pain of right knee Procedures XR KNEE GENERAL 4V AP BOTH/PA BOTH/LAT/MERC RIGHT RADIOLOGIC EXAM KNEE COMPLETE 4/[place] [address] [place] [address] [place] [address] Referral ID Status Reason Start Date Expiration Date V isits Requested Visits Authorized [id number] Closed Auto-Generate d Referral 01/18/2024 02/16/2025 1 1 [facility] for visit Narrative* Diagnostic Procedure Only (Urgent) - Closed Specialty Diagnoses / Procedures Referred By Contac t Referred To Contact US IMAGING Diagnoses Pain and swelling of right lower leg Procedures US DVT LOWER RIGHT DUP-SCAN XTR VEINS UNILATERAL/LIMITED STUDY Podlogar, Marilia, RECORD TESTER.SUPERVISOR [address] [place] [address] [place] [address] Referral ID Status Reason Start Date Expiration Date V isits Requested Visits Authorized [id number] Closed Auto-Generate d Referral 01/19/2024 02/17/2025 1 1 [facility] for visit Narrative* Diagnostic Procedure Only (Urgent) - Closed Specialty Diagnoses / Procedures Referred By Contac t Referred To Contact XR IMAGING Diagnoses Left wrist pain Procedures XR WRIST GENERAL 3V PA/LAT/OBL LEFT RADEX WRIST COMPLETE MINIMUM 3 VIEWS Podlogar, Marilia, RECORD TESTER.SUPERVISOR [address] [place] [address] Phone: tel: fax: [place] [address] Referral ID Status Reason Start Date Expiration Date V isits Requested Visits Authorized [id number] Closed Auto-Generate d Referral 10/08/2024 11/07/2025 1 1 [facility] Advance Directives No Advanced Directives Records Found Date Activated Date Inactivated Comments 10/23/2023 8:12 AM 10/27/2023 7:50 PM Question Answer Comments Full Code Order Discussed With: Patient Date Activated Date Inactivated Comments 06/08/2019 11:30 AM 01/17/2020 7:58 AM Documents on File Type Date Recorded Patient Utility Pipe Layer Expl anation Advance Directive(s) 03/04/2020 7:50 AM [...] Code 06/08/2019 11:30 AM 01/17/2020 7:58 AM Advance Directive Response Recorded Date/ Time Living Will No September 04, 2016 12 :17pm Power of Compressor Repairer No September 04, 2016 12:17pm Date Activated Date Inactivated Comments 06/08/2019 11:30 AM 01/17/2020 7:58 AM Date Activated Date Inactivated Comments 10/23/2023 8:12 AM Date Activated Date Inactivated Comments 10/23/2023 8:12 AM 10/27/2023 7:50 PM Question Answer Comments Full Code Order Discussed With: Patient Date Activated Date Inactivated Comments 06/08/2019 11:30 AM 01/17/2020 7:58 AM Advance Directive Response Recorded Date/ Time Living Will Yes March 26, 024 8:34am Power of Compressor Repairer Yes March 26, 2024 8:34am Name of Medical Power of Compressor Repairer Kyler Mary March 26, 2024 8:34am Living Will Yes July 02, 2024 2:53pm Power of Compressor Repairer Yes July 02 2:53pm Name of Medical Power of Compressor Repairer - ESTEFANIA ANGUIANO July 02, 2024 2:53pm Advance Directive Response Recorded Date/ Time Do you have a Healthcare Pow er of Compressor Repairer? No August 31, 2024 11:32am Living Will Yes July 02, 2024 3:53pm Do you have a Healthcare Pow er of Compressor Repairer? Yes July 02, 2024 3:53pm Name of Medical Power of Compressor Repairer - ESTEFANIA ANGUIANO July 02, 2024 3:53pm Advance Directive Response Recorded Date/ Time Do you have a Healthcare Pow er of Compressor Repairer? Yes October 03, 2024 10:22am Do you have a Healthcare Pow er of Compressor Repairer? No August 31, 2024 11:32am Living Will Yes July 02, 2024 3:53pm Do you have a Healthcare Pow er of Compressor Repairer? Yes July 02, 2024 3:53pm Name of Medical Power of Compressor Repairer - ESTEFANIA ANGUIANO July 02, 2024 3:53pm Health Concerns Infection Onset Date Last Indicated Resolved Time COVID-19 Rule-Out 05/23/2022 05/23/2022 Infection Onset Date Last Indicated Resolved Time COVID-19 Rule-Out 05/23/2022 05/23/2022 05/23/2022 9:20 PM EST Reason for Referral Specialty Diagnoses / Procedures Referred By Contac t Referred To Contact [facility] Diagnoses Chronic bilateral low back pain with bilateral sciatica Procedures CONSULT TO PHYSICAL THERAPY PHYSICAL THERAPY EVALUATION HIGH COMPLEX 45 MINS Podlogar, Marilia, SELENE.SUPERVISOR REMELT [address] [place] [address] [facility] [address] [address] Referral ID Status Reason Start Date Expiration Date Visits Requested Visits Authorized [id number] Authorized PCP Requested Referral Auto-Generate d Referral 11/02/2022 11/02/2023 99 99 Specialty Diagnoses / Procedures Referred By Contac t Referred To Contact [facility] Diagnoses Essential hypertension, benign Stage 3b chronic kidney disease (HCC) Bilateral leg edema ASHD (arteriosclerotic heart disease) Procedures ECHO ECHO TTHRC R-T 2D W/WOM-MODE COMPL SPEC&COLR D Podlogar, Marilia, RECORD TESTER.SUPERVISOR REMELT [address] [place] [address] [facility] [address] [address] Referral ID Status Reason Start Date Expiration Date Visits Requested Visits Authorized [id number] Authorized Auto-Generat ed Referral 11/02/2022 11/02/2023 1 1 Specialty Diagnoses / Procedures Referred By Contac t Referred To Contact [facility] Diagnoses Unsteady gait when walking Procedures CONSULT TO PHYSICAL THERAPY PHYSICAL THERAPY EVALUATION HIGH COMPLEX 45 MINS Agnes Diaz MD [address] [place] [address] [facility] [address] [address] Referral ID Status Reason Start Date Expiration Date Visits Requested Visits Authorized [id number] Authorized PCP Requested Referral Auto-Generate d Referral 11/01/2023 10/31/2024 99 99 Specialty Diagnoses / Procedures Referred By Contac t Referred To Contact Vascular Medicine Diagnoses Other secondary pulmonary hypertension (HCC) History of pulmonary embolism Procedures CONSULT TO VASCULAR MEDICINE OFFICE/OUTPATIENT [facility] MDM 60 [place] [address] [place] [address] Referral ID Status Reason Start Date Expiration Date Visits Requested Visits Authorized [id number] Authorized PCP Requested Referral 11/09/2023 11/08/2024 1 1 Specialty Diagnoses / Procedures Referred By Contac t Referred To Contact [facility] Diagnoses Other secondary pulmonary hypertension (HCC) History of pulmonary embolism Procedures ECHO ECHO TTHRC R-T 2D W/WOM-MODE COMPL SPEC&[place] [address] [place] [address] [facility] [place] [address] [place] [address] Referral ID Status Reason Start Date Expiration Date Visits Requested Visits Authorized [id number] Authorized Auto-Generat ed Referral 11/09/2023 11/08/2024 1 1 Specialty Diagnoses / Procedures Referred By Contac t Referred To Contact [facility]LECULAR [facility] FUNCTIONAL [facility]AGING Diagnoses Other secondary pulmonary hypertension (HCC) Procedures NM LUNG VENT / PERF VQ PULMONARY VENTILATION & PERFUSION IMAGING [facility] [place] [address] [place] [address] [facility] [address] [place] [address] Referral ID Status Reason Start Date Expiration Date Visits Requested Visits Authorized [id number] New Request Auto-Generat ed Referral 11/09/2023 12/08/2024 1 1 Specialty Diagnoses / Procedures Referred By Contac t Referred To Contact Orthopedics Diagnoses Acute pain of right knee Procedures CONSULT PANEL TO ORTHOPAEDICS OFFICE/OUTPATIENT [facility] 60 [place] [address] [place] [address] Referral ID Status Reason Start Date Expiration Date Visits Requested Visits Authorized [id number] Authorized PCP Requested Referral 01/18/2024 01/17/2025 1 1 Specialty Diagnoses / Procedures Referred By Contac t Referred To Contact XR IMAGING Diagnoses Acute pain of right knee Procedures XR KNEE GENERAL 4V AP BOTH/PA BOTH/LAT/MERC RIGHT RADIOLOGIC EXAM KNEE COMPLETE 4/[place] [address] [place] [address] [place] [id number] Referral ID Status Reason Start Date Expiration Date V isits Requested Visits Authorized [id number] Closed Auto-Generate d Referral 01/18/2024 02/16/2025 1 1 Specialty Diagnoses / Procedures Referred By Panda t Referred To Contact MR IMAGING Diagnoses Acute pain of right knee Procedures MRI KNEE WO IVCON RIGHT MRI ANY JT LOWER EXTREM W/O CONTRAST MATRL Podlogar, Marilia, RECORD TESTER.SUPERVISOR REMELT [address] [place] [address] [facility] [place] [address] Referral ID Status Reason Start Date Expiration Date Visits Requested Visits Authorized [id number] Authorized Auto-Generat ed Referral 01/24/2024 02/22/2025 1 1 Referral ID Status Reason Start Date Expiration Date V isits Requested Visits Authorized [id number] Closed Auto-Generate d Referral 01/24/2024 02/22/2025 1 1 Summary Purpose Family History No Family History Records Found Relationship Condition Age at Onset Recorded Date/T jet Unknown Family History?Heart Disease Unknown September 04, 2016 11:09am Family History?Heart Disease Unknown September 04, 2016 11:09am Family History?Hypertension Unknown September 04, 2016 11:09am Family History?No pertinent history Unkno wn September 04, 2016 11:09am Relationship Condition Age at Onset Recorded Date/T jet Unknown Family History?Heart Disease Unknown September 04, 2016 12:09pm Family History?Heart Disease Unknown September 04, 2016 12:09pm Family History?Hypertension Unknown September 04, 2016 12:09pm Family History?No pertinent history Unkno wn September 04, 2016 12:09pm Chief Complaint and Reason for Visit Chief Complaint LUMBAR RAD Chief Complaint Admit Date ABDOMINAL PAIN W/ ELEVATED LFT'S Novembe r 2023 6:13am ABDOMINAL PAIN W/ ELEVATED LFT'S Novembe r 2023 7:45pm ABDOMINAL PAIN W/ ELEVATED LFT'S Novembe r 2023 4:52pm ABDOMINAL PAIN W/ ELEVATED LFT'S Novembe r 2023 8:20am ABDOMINAL PAIN W/ ELEVATED LFT'S Novembe r 2023 12:14pm Hospital FU April 16, 2024 7:14am Reason for Visit Admit Date Choledocholithiasis March 26, 2024 6:13am Nausea and vomiting March 26, 2024 6:13am 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 March 26, 2024 6:13am Elevated liver enzymes March 26 6:13am Pancreatic mass March 26, 2024 6:13am Choledocholithiasis April 16, 2024 7:14am Pancreatic cyst April 16, 2024 7:14am Pancreatitis April 16, 2024 7:14am Biliary stricture July 04, 2024 8:24 am Choledocholithiasis July 04, 2024 8:24 am Chief Complaint Admit Date CHOLEDCOHOLITHIASIS July 04, 2024 7:00 am Test Result July 23, 2024 8:2 1am abd August 31, 2024 11:20a m LUMBAR SPINE September 17, 2024 9:03a m Room 3 September 17, 2024 9:56a m Reason for Visit Admit Date Biliary stricture July 04, 2024 8:24 am Choledocholithiasis July 04, 2024 8:24 am 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, 2024 8 :21am Choledocholithiasis July 23, 2024 8:2 1am Pancreatic cyst July 23, 2024 8:2 1am Pancreatitis July 23, 2024 8:2 1am Reason for Visit Admit Date Biliary stricture July 04, 2024 8:24 am Choledocholithiasis July 04, 2024 8:24 am 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, 2024 8 :21am Choledocholithiasis July 23, 2024 8:2 1am Pancreatic cyst July 23, 2024 8:2 1am Pancreatitis July 23, 2024 8:2 1am Balance disorder September 17, 2024 9:03a m Lumbar scoliosis September 17, 2024 9:03a m 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 claudication September 17, 2024 9:03am Spondylolisthesis, lumbar region August 9:03am Synovial cyst of lumbar facet joint September 17, 2024 9:03am 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 07, 2024 10: 24am Biliary stricture October 07, 2024 10:24 am Additional Source Comments Source Comments (unrecognize d section and content) In the event this informatio n is protected by the Federal Confidentiality of Alcohol and Drug Abuse Patient Records regulations: The Federal rules restrict any use of the information to criminally investigate or prosecute any alcohol or drug abuse patient.[facility]In the event this information is protected by the Federal Confidentiality of Alcohol and Drug Abuse Patient Records regulations: The Federal rules restrict any use of the information to criminally investigate or prosecute any alcohol or drug abuse patient.[facility] GeneralIn the event this information is protected by the Federal Confidentiality of Alcohol and Drug Abuse Patient Records regulations: The Federal rules restrict any use of the information to criminally investigate or prosecute any alcohol or drug abuse patient.[facility] GeneralIn the event this information is protected by the Federal Confidentiality of Alcohol and Drug Abuse Patient Records regulations: The Federal rules restrict any use of the information to criminally investigate or prosecute any alcohol or drug abuse patient.[facility] GeneralIn the event this information is protected by the Federal Confidentiality of Alcohol and Drug Abuse Patient Records regulations: The Federal rules restrict any use of the information to criminally investigate or prosecute any alcohol or drug abuse patient.[facility] GeneralIn the event this information is protected by the Federal Confidentiality of Alcohol and Drug Abuse Patient Records regulations: The Federal rules restrict any use of the information to criminally investigate or prosecute any alcohol or drug abuse patient.[facility] GeneralIn the event this information is protected by the Federal Confidentiality of Alcohol and Drug Abuse Patient Records regulations: The Federal rules restrict any use of the information to criminally investigate or prosecute any alcohol or drug abuse patient.[facility] GeneralIn the event this information is protected by the Federal Confidentiality of Alcohol and Drug Abuse Patient Records regulations: The Federal rules restrict any use of the information to criminally investigate or prosecute any alcohol or drug abuse patient.[facility] GeneralIn the event this information is protected by the Federal Confidentiality of Alcohol and Drug Abuse Patient Records regulations: The Federal rules restrict any use of the information to criminally investigate or prosecute any alcohol or drug abuse patient.[facility] GeneralIn the event this information is protected by the Federal Confidentiality of Alcohol and Drug Abuse Patient Records regulations: The Federal rules restrict any use of the information to criminally investigate or prosecute any alcohol or drug abuse patient.[facility] GeneralIn the event this information is protected by the Federal Confidentiality of Alcohol and Drug Abuse Patient Records regulations: The Federal rules restrict any use of the information to criminally investigate or prosecute any alcohol or drug abuse patient.[facility] GeneralIn the event this information is protected by the Federal Confidentiality of Alcohol and Drug Abuse Patient Records regulations: The Federal rules restrict any use of the information to criminally investigate or prosecute any alcohol or drug abuse patient.[facility] GeneralIn the event this information is protected by the Federal Confidentiality of Alcohol and Drug Abuse Patient Records regulations: The Federal rules restrict any use of the information to criminally investigate or prosecute any alcohol or drug abuse patient.[facility] GeneralIn the event this information is protected by the Federal Confidentiality of Alcohol and Drug Abuse Patient Records regulations: The Federal rules restrict any use of the information to criminally investigate or prosecute any alcohol or drug abuse patient.[facility] GeneralIn the event this information is protected by the Federal Confidentiality of Alcohol and Drug Abuse Patient Records regulations: The Federal rules restrict any use of the information to criminally investigate or prosecute any alcohol or drug abuse patient.[facility] GeneralIn the event this information is protected by the Federal Confidentiality of Alcohol and Drug Abuse Patient Records regulations: The Federal rules restrict any use of the information to criminally investigate or prosecute any alcohol or drug abuse patient.[facility] GeneralIn the event this information is protected by the Federal Confidentiality of Alcohol and Drug Abuse Patient Records regulations: The Federal rules restrict any use of the information to criminally investigate or prosecute any alcohol or drug abuse patient.[facility] GeneralIn the event this information is protected by the Federal Confidentiality of Alcohol and Drug Abuse Patient Records regulations: The Federal rules restrict any use of the information to criminally investigate or prosecute any alcohol or drug abuse patient.[facility] GeneralIn the event this information is protected by the Federal Confidentiality of Alcohol and Drug Abuse Patient Records regulations: The Federal rules restrict any use of the information to criminally investigate or prosecute any alcohol or drug abuse patient.[facility] GeneralIn the event this information is protected by the Federal Confidentiality of Alcohol and Drug Abuse Patient Records regulations: The Federal rules restrict any use of the information to criminally investigate or prosecute any alcohol or drug abuse patient.[facility] GeneralIn the event this information is protected by the Federal Confidentiality of Alcohol and Drug Abuse Patient Records regulations: The Federal rules restrict any use of the information to criminally investigate or prosecute any alcohol or drug abuse patient.[facility] GeneralIn the event this information is protected by the Federal Confidentiality of Alcohol and Drug Abuse Patient Records regulations: The Federal rules restrict any use of the information to criminally investigate or prosecute any alcohol or drug abuse patient.[facility] GeneralIn the event this information is protected by the Federal Confidentiality of Alcohol and Drug Abuse Patient Records regulations: The Federal rules restrict any use of the information to criminally investigate or prosecute any alcohol or drug abuse patient.[facility] GeneralIn the event this information is protected by the Federal Confidentiality of Alcohol and Drug Abuse Patient Records regulations: The Federal rules restrict any use of the information to criminally investigate or prosecute any alcohol or drug abuse patient.[facility] GeneralIn the event this information is protected by the Federal Confidentiality of Alcohol and Drug Abuse Patient Records regulations: The Federal rules restrict any use of the information to criminally investigate or prosecute any alcohol or drug abuse patient.[facility] GeneralIn the event this information is protected by the Federal Confidentiality of Alcohol and Drug Abuse Patient Records regulations: The Federal rules restrict any use of the information to criminally investigate or prosecute any alcohol or drug abuse patient.[facility] GeneralIn the event this information is protected by the Federal Confidentiality of Alcohol and Drug Abuse Patient Records regulations: The Federal rules restrict any use of the information to criminally investigate or prosecute any alcohol or drug abuse patient.[facility] GeneralIn the event this information is protected by the Federal Confidentiality of Alcohol and Drug Abuse Patient Records regulations: The Federal rules restrict any use of the information to criminally investigate or prosecute any alcohol or drug abuse patient.[facility] GeneralIn the event this information is protected by the Federal Confidentiality of Alcohol and Drug Abuse Patient Records regulations: The Federal rules restrict any use of the information to criminally investigate or prosecute any alcohol or drug abuse patient.[facility] GeneralIn the event this information is protected by the Federal Confidentiality of Alcohol and Drug Abuse Patient Records regulations: The Federal rules restrict any use of the information to criminally investigate or prosecute any alcohol or drug abuse patient.[facility] GeneralIn the event this information is protected by the Federal Confidentiality of Alcohol and Drug Abuse Patient Records regulations: The Federal rules restrict any use of the information to criminally investigate or prosecute any alcohol or drug abuse patient.[facility] GeneralIn the event this information is protected by the Federal Confidentiality of Alcohol and Drug Abuse Patient Records regulations: The Federal rules restrict any use of the information to criminally investigate or prosecute any alcohol or drug abuse patient.[facility] GeneralIn the event this information is protected by the Federal Confidentiality of Alcohol and Drug Abuse Patient Records regulations: The Federal rules restrict any use of the information to criminally investigate or prosecute any alcohol or drug abuse patient.[facility] GeneralIn the event this information is protected by the Federal Confidentiality of Alcohol and Drug Abuse Patient Records regulations: The Federal rules restrict any use of the information to criminally investigate or prosecute any alcohol or drug abuse patient.[facility] GeneralIn the event this information is protected by the Federal Confidentiality of Alcohol and Drug Abuse Patient Records regulations: The Federal rules restrict any use of the information to criminally investigate or prosecute any alcohol or drug abuse patient.[facility] GeneralIn the event this information is protected by the Federal Confidentiality of Alcohol and Drug Abuse Patient Records regulations: The Federal rules restrict any use of the information to criminally investigate or prosecute any alcohol or drug abuse patient.[facility] GeneralIn the event this information is protected by the Federal Confidentiality of Alcohol and Drug Abuse Patient Records regulations: The Federal rules restrict any use of the information to criminally investigate or prosecute any alcohol or drug abuse patient.[facility] GeneralIn the event this information is protected by the Federal Confidentiality of Alcohol and Drug Abuse Patient Records regulations: The Federal rules restrict any use of the information to criminally investigate or prosecute any alcohol or drug abuse patient.[facility] GeneralIn the event this information is protected by the Federal Confidentiality of Alcohol and Drug Abuse Patient Records regulations: The Federal rules restrict any use of the information to criminally investigate or prosecute any alcohol or drug abuse patient.[facility] GeneralIn the event this information is protected by the Federal Confidentiality of Alcohol and Drug Abuse Patient Records regulations: The Federal rules restrict any use of the information to criminally investigate or prosecute any alcohol or drug abuse patient.[facility] GeneralIn the event this information is protected by the Federal Confidentiality of Alcohol and Drug Abuse Patient Records regulations: The Federal rules restrict any use of the information to criminally investigate or prosecute any alcohol or drug abuse patient.[facility] GeneralIn the event this information is protected by the Federal Confidentiality of Alcohol and Drug Abuse Patient Records regulations: The Federal rules restrict any use of the information to criminally investigate or prosecute any alcohol or drug abuse patient.[facility] GeneralIn the event this information is protected by the Federal Confidentiality of Alcohol and Drug Abuse Patient Records regulations: The Federal rules restrict any use of the information to criminally investigate or prosecute any alcohol or drug abuse patient.[facility] GeneralIn the event this information is protected by the Federal Confidentiality of Alcohol and Drug Abuse Patient Records regulations: The Federal rules restrict any use of the information to criminally investigate or prosecute any alcohol or drug abuse patient.[facility] GeneralIn the event this information is protected by the Federal Confidentiality of Alcohol and Drug Abuse Patient Records regulations: The Federal rules restrict any use of the information to criminally investigate or prosecute any alcohol or drug abuse patient.[facility] GeneralIn the event this information is protected by the Federal Confidentiality of Alcohol and Drug Abuse Patient Records regulations: The Federal rules restrict any use of the information to criminally investigate or prosecute any alcohol or drug abuse patient.[facility] GeneralIn the event this information is protected by the Federal Confidentiality of Alcohol and Drug Abuse Patient Records regulations: The Federal rules restrict any use of the information to criminally investigate or prosecute any alcohol or drug abuse patient.[facility] GeneralIn the event this information is protected by the Federal Confidentiality of Alcohol and Drug Abuse Patient Records regulations: The Federal rules restrict any use of the information to criminally investigate or prosecute any alcohol or drug abuse patient.[facility] GeneralIn the event this information is protected by the Federal Confidentiality of Alcohol and Drug Abuse Patient Records regulations: The Federal rules restrict any use of the information to criminally investigate or prosecute any alcohol or drug abuse patient.[facility] GeneralIn the event this information is protected by the Federal Confidentiality of Alcohol and Drug Abuse Patient Records regulations: The Federal rules restrict any use of the information to criminally investigate or prosecute any alcohol or drug abuse patient.[facility] GeneralIn the event this information is protected by the Federal Confidentiality of Alcohol and Drug Abuse Patient Records regulations: The Federal rules restrict any use of the information to criminally investigate or prosecute any alcohol or drug abuse patient.[facility] GeneralIn the event this information is protected by the Federal Confidentiality of Alcohol and Drug Abuse Patient Records regulations: The Federal rules restrict any use of the information to criminally investigate or prosecute any alcohol or drug abuse patient.[facility] GeneralIn the event this information is protected by the Federal Confidentiality of Alcohol and Drug Abuse Patient Records regulations: The Federal rules restrict any use of the information to criminally investigate or prosecute any alcohol or drug abuse patient.[facility] GeneralIn the event this information is protected by the Federal Confidentiality of Alcohol and Drug Abuse Patient Records regulations: The Federal rules restrict any use of the information to criminally investigate or prosecute any alcohol or drug abuse patient.[facility] GeneralIn the event this information is protected by the Federal Confidentiality of Alcohol and Drug Abuse Patient Records regulations: The Federal rules restrict any use of the information to criminally investigate or prosecute any alcohol or drug abuse patient.[facility] GeneralIn the event this information is protected by the Federal Confidentiality of Alcohol and Drug Abuse Patient Records regulations: The Federal rules restrict any use of the information to criminally investigate or prosecute any alcohol or drug abuse patient.[facility] GeneralIn the event this information is protected by the Federal Confidentiality of Alcohol and Drug Abuse Patient Records regulations: The Federal rules restrict any use of the information to criminally investigate or prosecute any alcohol or drug abuse patient.[facility] GeneralIn the event this information is protected by the Federal Confidentiality of Alcohol and Drug Abuse Patient Records regulations: The Federal rules restrict any use of the information to criminally investigate or prosecute any alcohol or drug abuse patient.[facility] GeneralIn the event this information is protected by the Federal Confidentiality of Alcohol and Drug Abuse Patient Records regulations: The Federal rules restrict any use of the information to criminally investigate or prosecute any alcohol or drug abuse patient.[facility] GeneralIn the event this information is protected by the Federal Confidentiality of Alcohol and Drug Abuse Patient Records regulations: The Federal rules restrict any use of the information to criminally investigate or prosecute any alcohol or drug abuse patient.[facility] GeneralIn the event this information is protected by the Federal Confidentiality of Alcohol and Drug Abuse Patient Records regulations: The Federal rules restrict any use of the information to criminally investigate or prosecute any alcohol or drug abuse patient.[facility] GeneralIn the event this information is protected by the Federal Confidentiality of Alcohol and Drug Abuse Patient Records regulations: The Federal rules restrict any use of the information to criminally investigate or prosecute any alcohol or drug abuse patient.[facility] GeneralIn the event this information is protected by the Federal Confidentiality of Alcohol and Drug Abuse Patient Records regulations: The Federal rules restrict any use of the information to criminally investigate or prosecute any alcohol or drug abuse patient.[facility] GeneralIn the event this information is protected by the Federal Confidentiality of Alcohol and Drug Abuse Patient Records regulations: The Federal rules restrict any use of the information to criminally investigate or prosecute any alcohol or drug abuse patient.[facility] GeneralIn the event this information is protected by the Federal Confidentiality of Alcohol and Drug Abuse Patient Records regulations: The Federal rules restrict any use of the information to criminally investigate or prosecute any alcohol or drug abuse patient.[facility] GeneralIn the event this information is protected by the Federal Confidentiality of Alcohol and Drug Abuse Patient Records regulations: The Federal rules restrict any use of the information to criminally investigate or prosecute any alcohol or drug abuse patient.[facility] GeneralIn the event this information is protected by the Federal Confidentiality of Alcohol and Drug Abuse Patient Records regulations: The Federal rules restrict any use of the information to criminally investigate or prosecute any alcohol or drug abuse patient.[facility] GeneralIn the event this information is protected by the Federal Confidentiality of Alcohol and Drug Abuse Patient Records regulations: The Federal rules restrict any use of the information to criminally investigate or prosecute any alcohol or drug abuse patient.[facility] GeneralIn the event this information is protected by the Federal Confidentiality of Alcohol and Drug Abuse Patient Records regulations: The Federal rules restrict any use of the information to criminally investigate or prosecute any alcohol or drug abuse patient.[facility] GeneralIn the event this information is protected by the Federal Confidentiality of Alcohol and Drug Abuse Patient Records regulations: The Federal rules restrict any use of the information to criminally investigate or prosecute any alcohol or drug abuse patient.[facility] GeneralIn the event this information is protected by the Federal Confidentiality of Alcohol and Drug Abuse Patient Records regulations: The Federal rules restrict any use of the information to criminally investigate or prosecute any alcohol or drug abuse patient.[facility] GeneralIn the event this information is protected by the Federal Confidentiality of Alcohol and Drug Abuse Patient Records regulations: The Federal rules restrict any use of the information to criminally investigate or prosecute any alcohol or drug abuse patient.[facility] GeneralIn the event this information is protected by the Federal Confidentiality of Alcohol and Drug Abuse Patient Records regulations: The Federal rules restrict any use of the information to criminally investigate or prosecute any alcohol or drug abuse patient.[facility] GeneralIn the event this information is protected by the Federal Confidentiality of Alcohol and Drug Abuse Patient Records regulations: The Federal rules restrict any use of the information to criminally investigate or prosecute any alcohol or drug abuse patient.[facility] GeneralIn the event this information is protected by the Federal Confidentiality of Alcohol and Drug Abuse Patient Records regulations: The Federal rules restrict any use of the information to criminally investigate or prosecute any alcohol or drug abuse patient.[facility] GeneralIn the event this information is protected by the Federal Confidentiality of Alcohol and Drug Abuse Patient Records regulations: The Federal rules restrict any use of the information to criminally investigate or prosecute any alcohol or drug abuse patient.[facility] GeneralIn the event this information is protected by the Federal Confidentiality of Alcohol and Drug Abuse Patient Records regulations: The Federal rules restrict any use of the information to criminally investigate or prosecute any alcohol or drug abuse patient.[facility] GeneralIn the event this information is protected by the Federal Confidentiality of Alcohol and Drug Abuse Patient Records regulations: The Federal rules restrict any use of the information to criminally investigate or prosecute any alcohol or drug abuse patient.[facility] GeneralIn the event this information is protected by the Federal Confidentiality of Alcohol and Drug Abuse Patient Records regulations: The Federal rules restrict any use of the information to criminally investigate or prosecute any alcohol or drug abuse patient.[facility] GeneralIn the event this information is protected by the Federal Confidentiality of Alcohol and Drug Abuse Patient Records regulations: The Federal rules restrict any use of the information to criminally investigate or prosecute any alcohol or drug abuse patient.[facility] GeneralIn the event this information is protected by the Federal Confidentiality of Alcohol and Drug Abuse Patient Records regulations: The Federal rules restrict any use of the information to criminally investigate or prosecute any alcohol or drug abuse patient.[facility] GeneralIn the event this information is protected by the Federal Confidentiality of Alcohol and Drug Abuse Patient Records regulations: The Federal rules restrict any use of the information to criminally investigate or prosecute any alcohol or drug abuse patient.[facility] GeneralIn the event this information is protected by the Federal Confidentiality of Alcohol and Drug Abuse Patient Records regulations: The Federal rules restrict any use of the information to criminally investigate or prosecute any alcohol or drug abuse patient.[facility] GeneralIn the event this information is protected by the Federal Confidentiality of Alcohol and Drug Abuse Patient Records regulations: The Federal rules restrict any use of the information to criminally investigate or prosecute any alcohol or drug abuse patient.[facility] GeneralIn the event this information is protected by the Federal Confidentiality of Alcohol and Drug Abuse Patient Records regulations: The Federal rules restrict any use of the information to criminally investigate or prosecute any alcohol or drug abuse patient.[facility] GeneralIn the event this information is protected by the Federal Confidentiality of Alcohol and Drug Abuse Patient Records regulations: The Federal rules restrict any use of the information to criminally investigate or prosecute any alcohol or drug abuse patient.[facility] GeneralIn the event this information is protected by the Federal Confidentiality of Alcohol and Drug Abuse Patient Records regulations: The Federal rules restrict any use of the information to criminally investigate or prosecute any alcohol or drug abuse patient.[facility] GeneralIn the event this information is protected by the Federal Confidentiality of Alcohol and Drug Abuse Patient Records regulations: The Federal rules restrict any use of the information to criminally investigate or prosecute any alcohol or drug abuse patient.[facility] GeneralIn the event this information is protected by the Federal Confidentiality of Alcohol and Drug Abuse Patient Records regulations: The Federal rules restrict any use of the information to criminally investigate or prosecute any alcohol or drug abuse patient.[facility] GeneralIn the event this information is protected by the Federal Confidentiality of Alcohol and Drug Abuse Patient Records regulations: The Federal rules restrict any use of the information to criminally investigate or prosecute any alcohol or drug abuse patient.[facility] GeneralIn the event this information is protected by the Federal Confidentiality of Alcohol and Drug Abuse Patient Records regulations: The Federal rules restrict any use of the information to criminally investigate or prosecute any alcohol or drug abuse patient.[facility] GeneralIn the event this information is protected by the Federal Confidentiality of Alcohol and Drug Abuse Patient Records regulations: The Federal rules restrict any use of the information to criminally investigate or prosecute any alcohol or drug abuse patient.[facility] GeneralIn the event this information is protected by the Federal Confidentiality of Alcohol and Drug Abuse Patient Records regulations: The Federal rules restrict any use of the information to criminally investigate or prosecute any alcohol or drug abuse patient.[facility] GeneralIn the event this information is protected by the Federal Confidentiality of Alcohol and Drug Abuse Patient Records regulations: The Federal rules restrict any use of the information to criminally investigate or prosecute any alcohol or drug abuse patient.[facility] GeneralIn the event this information is protected by the Federal Confidentiality of Alcohol and Drug Abuse Patient Records regulations: The Federal rules restrict any use of the information to criminally investigate or prosecute any alcohol or drug abuse patient.[facility] GeneralIn the event this information is protected by the Federal Confidentiality of Alcohol and Drug Abuse Patient Records regulations: The Federal rules restrict any use of the information to criminally investigate or prosecute any alcohol or drug abuse patient.[facility] GeneralIn the event this information is protected by the Federal Confidentiality of Alcohol and Drug Abuse Patient Records regulations: The Federal rules restrict any use of the information to criminally investigate or prosecute any alcohol or drug abuse patient.[facility] GeneralIn the event this information is protected by the Federal Confidentiality of Alcohol and Drug Abuse Patient Records regulations: The Federal rules restrict any use of the information to criminally investigate or prosecute any alcohol or drug abuse patient.[facility] GeneralIn the event this information is protected by the Federal Confidentiality of Alcohol and Drug Abuse Patient Records regulations: The Federal rules restrict any use of the information to criminally investigate or prosecute any alcohol or drug abuse patient.[facility] GeneralIn the event this information is protected by the Federal Confidentiality of Alcohol and Drug Abuse Patient Records regulations: The Federal rules restrict any use of the information to criminally investigate or prosecute any alcohol or drug abuse patient.[facility] GeneralIn the event this information is protected by the Federal Confidentiality of Alcohol and Drug Abuse Patient Records regulations: The Federal rules restrict any use of the information to criminally investigate or prosecute any alcohol or drug abuse patient.[facility] GeneralIn the event this information is protected by the Federal Confidentiality of Alcohol and Drug Abuse Patient Records regulations: The Federal rules restrict any use of the information to criminally investigate or prosecute any alcohol or drug abuse patient.[facility] GeneralIn the event this information is protected by the Federal Confidentiality of Alcohol and Drug Abuse Patient Records regulations: The Federal rules restrict any use of the information to criminally investigate or prosecute any alcohol or drug abuse patient.[facility] GeneralIn the event this information is protected by the Federal Confidentiality of Alcohol and Drug Abuse Patient Records regulations: The Federal rules restrict any use of the information to criminally investigate or prosecute any alcohol or drug abuse patient.[facility] Reason for Visit (unrecogniz ed section and content) Reason Comments Physical Therapy PT Progress Note Specialty Diagnoses / Procedures Referred By Contac t Referred To Contact PHYSICAL THERAPY Diagnoses Unsteady gait when walking Procedures CONSULT TO PHYSICAL THERAPY PHYSICAL THERAPY EVALUATION HIGH COMPLEX 45 MINS Agnes Diaz MD [address] [place] [address] Pt [facility] [address] [place] [address] Referral ID Status Reason Start Date Expiration Date Visits Requested Visits Authorized [id number] Authorized PCP Requested Referral Auto-Generate d Referral 11/01/2023 10/31/2024 99 99 Reason Comments Physical Therapy Reason Comments PT Eval Reason Comments PT Discharge Physical Therapy Specialty Diagnoses / Procedures Referred By Contac t Referred To Contact [facility] Diagnoses Chronic bilateral low back pain with bilateral sciatica Procedures CONSULT TO PHYSICAL THERAPY PHYSICAL THERAPY EVALUATION HIGH COMPLEX 45 MINS PodlogarMarilia APRN.SUPERVISOR REMELT [address] [place] [address] [facility] [address] [address] Referral ID Status Reason Start Date Expiration Date Visits Requested Visits Authorized [id number] Authorized PCP Requested Referral Auto-Generate d Referral 11/02/2022 11/02/2023 99 99 Specialty Diagnoses / Procedures Referred By Contac t Referred To Contact [facility] Diagnoses Chronic bilateral low back pain with bilateral sciatica At high risk for falls Age-related physical debility Procedures CONSULT TO PHYSICAL THERAPY PHYSICAL THERAPY EVALUATION HIGH COMPLEX 45 MINS Agnes Diaz MD [address] [place] [address] [facility] [address] [address] Referral ID Status Reason Start Date Expiration Date Visits Requested Visits Authorized [id number] Authorized PCP Requested Referral Auto-Generate d Referral 12/01/2021 12/01/2022 99 99 Reason Comments Patient Question Refill Request Reason Comments Orders Reason Comments Imm/Inj Reason Comments Ear Pain R ear x1 week Reason Comments Results Reason Onset Date Comments Refill Request 12/17/2021 Reason Comments Established Patient Annual neurology exa m; MARTIN Reason Onset Date Comments Population Health Navigation Outreach 04/11/2022 [facility] [place] PCSA Reason Comments Medicare Wellness Exam Reason Comments Sinus Problem sinus pressure, drai nage, sore throat x 4 days Reason Comments Medication Request Reason Onset Date Comments Refill Request 05/11/2022 Refill Request 08/08/2022 Reason Comments F/U 6 Month Reason Onset Date Comments Refill Request 02/07/2023 Reason Onset Date Comments Refill Request 03/07/2023 Reason Onset Date Comments [facility] Navigation Outreach 03/13/2023 ACO CARE GAPS Reason Comments Refill Request Reason Comments Follow Up 1 month Reason Comments Blood Pressure Check Reason Onset Date Comments Refill Request 09/04/2023 Reason Onset Date Comments Refill Request 09/27/2023 Reason Comments Rash left waistline and e lbow x 1 day Reason Comments Patient Update Reason Comments Hospital F/U Seen for PE and resp iratory failure, d/c Thursday 10/26, patient states respiratory status has improved Reason Onset Date Comments Transition Of Care 10/30/2023 Value-Based T CM Initial - No Text Reason Comments [facility]- verbal o rders Reason Comments Patient Update Reason Onset Date Comments Transition Of Care 11/06/2023 tcm d/c follo w up Reason Comments Pulmonary Hypertension Was in hospital . Blood clots on lung and PE. Ct chest, cxr, echo Reason Comments Forms FMLA paperwork for p patrick's spouse Reason Onset Date Comments Refill Request 11/22/2023 Reason Comments Appointment Specialty Diagnoses / Procedures Referred By Panda richards Referred To Contact Vascular Medicine Diagnoses Other secondary pulmonary hypertension (HCC) History of pulmonary embolism Procedures CONSULT TO VASCULAR MEDICINE OFFICE/OUTPATIENT NEW HIGH MDM 60 [place] [address] [place] [address] Referral ID Status Reason Start Date Expiration Date V isits Requested Visits Authorized [id number] Closed PCP Requested Referral 11/09/2023 11/08/2024 1 1 Reason Onset Date Comments Refill Request 01/06/2024 Reason Comments Follow Up Reason Comments Right Knee Pain X 6 days Reason Comments Disc Request Reason Comments Follow Up Right leg follow up Reason Comments Follow Up Cellulitis Reason Comments Radiology MRI Specialty Diagnoses / Procedures Referred By Contac t Referred To Contact MR IMAGING Diagnoses Acute pain of right knee Procedures MRI KNEE WO IVCON RIGHT MRI ANY JT LOWER EXTREM W/O CONTRAST MATRL Podlogar, Marilia, RECORD TESTER.SUPERVISOR REMELT [address] [facility] [place] [address] [place] [address] Referral ID Status Reason Start Date Expiration Date V isits Requested Visits Authorized [id number] Closed Auto-Generate d Referral 01/24/2024 02/22/2025 1 1 Reason Comments Fall X1 week ago, hurt ri ght knee and has some swelling in the right lower landry Reason Comments Follow Up Cellulitis/pain to r ight leg Reason Comments Hillary cellulitis Reason Comments Follow Up Right leg swelling Pain Left shoulder/upper back into neck pain Reason Onset Date Comments Refill Request 02/21/2024 Reason Onset Date Comments Refill Request 03/18/2024 Reason Onset Date Comments Transition Of Care 03/29/2024 TCM / OON Degroot ster Comm dc 03/28/24 Reason Comments Hospital F/U [facility] 03/26-03/28 for pancreatitis Reason Onset Date Comments Refill Request 04/12/2024 Reason Comments Skin Check Reason Onset Date Comments Refill Request 05/21/2024 Reason Onset Date Comments Refill Request 07/26/2024 Reason Onset Date Comments Population Health Navigation Outreach 08/07/2024 [facility]/Workbench/[facility] Reason Onset Date Comments Refill Request 08/12/2024 Reason Comments Yearly Exam Reason Onset Date Comments Results 08/16/2024 Reason Comments medication form Anticoagulant author ization form Reason Comments Abdominal Pain Reason Comments Pulmonary Embolism Reason Comments Pain Left wrist pain, fel l about a month ago and caught himself with his hands. Reason Onset Date Comments Xray Results 10/09/2024 Care Teams (unrecognized sec tion and content) Team Status: Active Member Role Status Dates Dr. Salvador Diaz MD Primary Care Provider Acti ve Team Status: Active Member Role Status Dates Dr. Salvador Diaz MD Primary Care Provider Acti ve Start: July 04, 2024 Dr. Denilson Blair MD Attending Provider Active Start: July 04, 2024 Dr. Denilson Blair MD Referring Provider Active Start: July 04, 2024 Team Status: Inactive Member Role Status Dates Dr. Salvador Diaz MD Primary Care Provider Acti ve Start: July 04, 2024 End: July 04, 2024 Dr. Salvador Diaz MD Referring Provider Active Start: July 04, 2024 End: July 04, 2024 Dr. Alex Sher DO Attending Provider Active Start: July 04, 2024 End: July 04, 2024 Team Status: Active Member Role Status Dates Dr. Salvador Diaz MD Primary Care Provider Acti ve Start: July 04, 2024 Dr. Salvador Diaz MD Referring Provider Active Start: July 04, 2024 Dr. Alex Sher DO Attending Provider Active Start: July 04, 2024 Dr. Alex Sher DO Other Provider Active St art: July 04, 2024 Team Status: Inactive Member Role Status Dates Dr. Salvador Diaz MD Primary Care Provider Acti ve Start: July 23, 2024 End: July 23, 2024 Dr. Salvador Diaz MD Referring Provider Active Start: July 23, 2024 End: July 23, 2024 Dr. Alex Sher DO Attending Provider Active Start: July 23, 2024 End: July 23, 2024 Team Status: Inactive Member Role Status Dates Dr. Salvador Diaz MD Primary Care Provider Acti ve Start: August 31, 2024 End: August 31, 2024 Isaias Trivedi MD Attending Provider Active Star t: August 31, 2024 End: August 31, 2024 Isaias Trivedi MD Emergency Provider Active Star t: August 31, 2024 End: August 31, 2024 Team Status: Active Member Role Status Dates Dr. Salvador Diaz MD Primary Care Provider Acti ve Start: September 17, 2024 Dr. Salvador Diaz MD Referring Provider Active Start: September 17, 2024 Dr. Troy Valentino MD Attending Provider Active Start: September 17, 2024 Team Status: Inactive Member Role Status Dates Dr. Salvador Diaz MD Primary Care Provider Acti jason Start: September 17, 2024 End: September 17, 2024 Dr. Isaias Velez MD Attending Provider Active S tart: September 17, 2024 End: September 17, 2024 [employer]head Worker Relationship Specialty Start Date End Date Agnes Diaz MD [address] [place], [place] 287121 PCP - General Family Practice 01/12/21 Scott Pal MD [address] [address] Referring Orthopedics 06/03/19 Scott Pal MD [address] [phone] Home Care Physician Orthopedics 06/03/19 Caroline Fitzgerald, PT [address] [place] [address] Statistics Professor Acute Care 06/07/19 Poppy Garcia MD [address], [facility] [place] [address] Primary Staff Physician Cardiology 07/17/18 Cathead Worker Relationship Specialty Start Date End Date Agnes Diaz MD [address] [place], [place] [id number] PCP - General Family Practice 01/12/21 Scott Pal MD [address] [id number] Referring Orthopedics 06/03/19 Scott Pal MD [address] [address] Home Care Physician Orthopedics 06/03/19 Caroline Fitzgerald, PT [address] [place] [address] Statistics Professor Acute Care 06/07/19 Poppy Garcia MD [address] NICHO RIVEROVanessa, Desdorothy J2-3 [place] [address] Primary Staff Physician Cardiology 07/17/18 Cathead Worker Relationship Specialty Start Date End Date Agnes Diaz MD [address] [place] [address] PCP - General Family Practice 01/12/21 Scott Pal MD [address] [address] Referring Orthopedics 06/03/19 Scott Pal MD [address] [address] Home Care Physician Orthopedics 06/03/19 Caroline Fitzgerald, PT [address] [place] [address] Statistics Professor Acute Care 06/07/19 Poppy Garcia MD [address], Desk J2-[address] [place] [address] Primary Staff Physician Cardiology 07/17/18 Cathead Worker Relationship Specialty Start Date End Date Agnes Diaz MD [address] [place] [address] PCP - General Family Practice 01/12/21 Scott Pal MD [address] [address] Referring Orthopedics 06/03/19 Scott Pal MD [address] [address] Home Care Physician Orthopedics 06/03/19 Caroline Fitzgerald, PT [address] [place] [address] Statistics Professor Acute Care 06/07/19 Poppy Garcia MD 7530 MILEDIAANThaddeus MARIANA, Desk J2-[address] [place] [address] Primary Staff Physician Cardiology 07/17/18 Cathead Worker Relationship Specialty Start Date End Date Agnes Diaz MD [address] [place] [address] PCP - General Family Practice 01/12/21 Scott Pal MD [address] 8[address] Referring Orthopedics 06/03/19 Scott Pal MD [address] [address] Home Care Physician Orthopedics 06/03/19 Caroline Fitzgerald, PT [address] [place] [address] Statistics Professor Acute Care 06/07/19 Poppy Garcia MD [address], Desk J[address] [place] [address] Primary Staff Physician Cardiology 07/17/18 Cathead Worker Relationship Specialty Start Date End Date Agnes Diaz MD [address] [place], [place] 669381 PCP - General Family Practice 01/12/21 Scott Pal MD [address] [address] Referring Orthopedics 06/03/19 Scott Pal MD [address] [address] Home Care Physician Orthopedics 06/03/19 Caroline Fitzgerald, PT [address] [place] [address] Statistics Professor Acute Care 06/07/19 Poppy Garcia MD [address]OE, Desk J[address] [place] [address] Primary Staff Physician Cardiology 07/17/18 Cathead Worker Relationship Specialty Start Date End Date Agnes Diaz MD [address] [place], [place] 128951 PCP - General Family Practice 01/12/21 Scott Pal MD [facility] [address] [address] Referring Orthopedics 06/03/19 Scott Pal MD [facility] E [address] [address] Home Care Physician Orthopedics 06/03/19 Caroline Fitzgerald, PT [address] [place] [address] Statistics Professor Acute Care 06/07/19 Poppy Garcia MD [address]OE, Desk J[address] [place] [address] Primary Staff Physician Cardiology 07/17/18 Cathead Worker Relationship Specialty Start Date End Date Agnes Diaz MD [address] [place] [address] PCP - General Family Practice 01/12/21 Scott Pal MD [facility] E [address] [address] Referring Orthopedics 06/03/19 Scott Pal MD [facility] E [address] [address] Home Care Physician Orthopedics 06/03/19 Caroline Fitzgerald, PT [address] [place] [address] Statistics Professor Acute Care 06/07/19 Poppy Garcia MD 9180 EUCDIANAD NIESHAE, Desk J[address] [place] [address] Primary Staff Physician Cardiology 07/17/18 Cathead Worker Relationship Specialty Start Date End Date Agnes Diaz MD [address] [place], [place] 019241 PCP - General Family Practice 01/12/21 Scott Pal MD [address] [address] Referring Orthopedics 06/03/19 Scott Pal MD [address] [address] Home Care Physician Orthopedics 06/03/19 Caroline Fitzgerald, PT [address] [place] [address] Statistics Professor Acute Care 06/07/19 Poppy Garcia MD [address], Desk J2-[address] [place] [address] Primary Staff Physician Cardiology 07/17/18 Cathead Worker Relationship Specialty Start Date End Date Agnes Diaz MD [address] [place] [address] PCP - General Family Practice 01/12/21 Scott Pal MD [address] [address] Referring Orthopedics 06/03/19 Scott Pal MD [address] [address] Home Care Physician Orthopedics 06/03/19 Caroline Fitzgerald, PT [address] [place] [address] Statistics Professor Acute Care 06/07/19 Poppy Garcia MD [address], Desk J2-[address] [place] [address] Primary Staff Physician Cardiology 07/17/18 Cathead Worker Relationship Specialty Start Date End Date Agnes Diaz MD [address] [place], [place] 903621 PCP - General Family Practice 01/12/21 Scott Pal MD [address] [address] Referring Orthopedics 06/03/19 Scott Pal MD [address] [address] Home Care Provider Orthopedics 06/03/19 Caroline Fitzgerald, PT [address] [place] [address] Statistics Professor Acute Care 06/07/19 Poppy Garcia MD [address], Desk J[address] [place] [address] Primary Staff Physician Cardiology 07/17/18 Cathead Worker Relationship Specialty Start Date End Date Agnes Diaz MD [address] [place] [address] PCP - General Family Medicine 01/12/21 Scott Pal MD [address] [address] Referring Orthopedics 06/03/19 Scott Pal MD [address] [address] Home Care Provider Orthopedics 06/03/19 Caroline Fitzgerald, PT [address] [place] [address] Statistics Professor Acute Care 06/07/19 Poppy Garcia MD [address], Desk [address] [place] [address] Primary Staff Physician Cardiology 07/17/18 Cathead Worker Relationship Specialty Start Date End Date Agnes Diaz MD [address] [place] [address] PCP - General Family Medicine 01/12/21 Scott Pal MD [address] [place] [address] Referring Orthopedics 06/03/19 Scott Pal MD [address] [place] [address] Home Care Provider Orthopedics 06/03/19 Caroline Fitzgerald, PT [address] [place] [address] Statistics Professor Acute Care 06/07/19 Poppy Garcia MD [address], Desk [address] [place] [address] Primary Staff Physician Cardiology 07/17/18 Cathead Worker Relationship Specialty Start Date End Date Agnes Diaz MD [address] [place] [address] PCP - General Family Medicine 01/12/21 Scott Pal MD [address] [place] [address] Referring Orthopedics 06/03/19 Scott Pal MD [address] [place] [address] Home Care Provider Orthopedics 06/03/19 Caroline Fitzgerald, PT [address] [place] [address] Statistics Professor Acute Care 06/07/19 Poppy Garcia MD [address], Desk J2-[address] [place] [address] Primary Staff Physician Cardiology 07/17/18 Cathead Worker Relationship Specialty Start Date End Date Agnes Diaz MD [address] [place], [place] [id number] PCP - General Family Medicine 01/12/21 Scott Pal MD [address] [place] [address] Referring Orthopedics 06/03/19 Scott Pal MD [address] [place] [address] Home Care Provider Orthopedics 06/03/19 Caroline Fitzgerald, PT [address] [place] [address] Statistics Professor Acute Care 06/07/19 Poppy Garcia MD [address], Desk J2-[address] [place], [place] 3439295 Primary Staff Physician Cardiology 07/17/18 Cathead Worker Relationship Specialty Start Date End Date Agnes Diaz MD [address] [place] [address] PCP - General Family Medicine 01/12/21 Scott Pal MD [address] [address] Referring Orthopedics 06/03/19 Scott Pal MD [address] [address] Home Care Provider Orthopedics 06/03/19 Caroline Fitzgerald, PT [address] [place] [address] Statistics Professor Acute Care 06/07/19 Poppy Garcia MD [address], Desk J2-[address] [place] [address] Primary Staff Physician Cardiology 07/17/18 Cathead Worker Relationship Specialty Start Date End Date Agnes Diaz MD [address] [place], [place] [id number] PCP - General Family Medicine 01/12/21 Scott Pal MD [address] [address] Referring Orthopedics 06/03/19 Scott Pal MD [address] [address] Home Care Provider Orthopedics 06/03/19 Caroline Fitzgerald, PT [address] [place] [address] Statistics Professor Acute Care 06/07/19 Poppy Garcia MD [address], Desk [address] [place] [address] Primary Staff Physician Cardiology 07/17/18 Cathead Worker Relationship Specialty Start Date End Date Agnes Diaz MD [address] [place], [place] [id number] PCP - General Family Medicine 01/12/21 Scott Pal MD [address] [address] Referring Orthopedics 06/03/19 Scott Pal MD [address] [address] Home Care Provider Orthopedics 06/03/19 Caroline Fitzgerald, PT [address] [place] [address] Statistics Professor Acute Care 06/07/19 Poppy Garcia MD [address], Desk J2-[address] [place], [place] 9073395 Primary Staff Physician Cardiology 07/17/18 Cathead Worker Relationship Specialty Start Date End Date Agnes Diaz MD [address] [place], [place] [id number] PCP - General Family Medicine 01/12/21 Scott Pal MD [address] [address] Referring Orthopedics 06/03/19 Scott Pal MD [address] [address] Home Care Provider Orthopedics 06/03/19 Caroline Fitzgerald, PT [address] [place] [address] Statistics Professor Acute Care 06/07/19 Poppy Garcia MD [address], Desk J2-[address] [place], [place] 6010895 Primary Staff Physician Cardiology 07/17/18 Cathead Worker Relationship Specialty Start Date End Date Agnes Diaz MD [address] [place], [place] [id number] PCP - General Family Medicine 01/12/21 Scott Pal MD [address] [address] Referring Orthopedics 06/03/19 Scott Pal MD [address] [address] Home Care Provider Orthopedics 06/03/19 Caroline Fitzgerald, PT [address] [place], [place] 7581631 Statistics Professor Acute Care 06/07/19 Poppy Garcia MD [address], Desk J2-[address] [place], [place] 9234995 Primary Staff Physician Cardiology 07/17/18 Cathead Worker Relationship Specialty Start Date End Date Agnes Diaz MD [facility] [place] [address] PCP - General Family Medicine 01/12/21 Scott Pal MD [address] [address] Referring Orthopedics 06/03/19 Scott Pal MD [address] [address] Home Care Provider Orthopedics 06/03/19 Caroline Fitzgerald, PT [address] [place], [place] 2230231 Statistics Professor Acute Care 06/07/19 Poppy Garcia MD [address], Desk J2-[address] [place], [place] 9907695 Primary Staff Physician Cardiology 07/17/18 Cathead Worker Relationship Specialty Start Date End Date Agnes Diaz MD [address] [place], [place] 614861 PCP - General Family Medicine 01/12/21 Scott Pal MD [address] [address] Referring Orthopedics 06/03/19 Scott Pal MD [address] [address] Home Care Provider Orthopedics 06/03/19 Caroline Fitzgerald, PT [address] [place], [place] 4484231 Statistics Professor Acute Care 06/07/19 Poppy Garcia MD [address], Desk J2-[address] [place], [place] 5217195 Primary Staff Physician Cardiology 07/17/18 Cathead Worker Relationship Specialty Start Date End Date Agnes Diaz MD [address] [place], [place] 369991 PCP - General Family Medicine 01/12/21 Scott Pal MD [address] [address] Referring Orthopedics 06/03/19 Scott Pal MD [address] [address] Home Care Provider Orthopedics 06/03/19 Caroline Fitzgerald, PT [address] [place] [address] Statistics Professor Acute Care 06/07/19 Poppy Garcia MD [address], Adan J[address] [place] [address] Primary Staff Physician Cardiology 07/17/18 Cathead Worker Relationship Specialty Start Date End Date Agnes Diaz MD [address] [place], [place] 860771 PCP - General Family Medicine 01/12/21 Scott Pal MD [address] [place] [address] Referring Orthopedics 06/03/19 Scott Pal MD [address] [place] [address] Home Care Provider Orthopedics 06/03/19 Caroline Fitzgerald, PT [address] [place] [address] Statistics Professor Acute Care 06/07/19 Poppy Garcia MD [address] [place] [address] Primary Staff Physician Cardiology 07/17/18 Cathead Worker Relationship Specialty Start Date End Date Agnes Diaz MD [address] [place], [place] 339691 PCP - General Family Medicine 01/12/21 Scott Pal MD [address] [address] Referring Orthopedics 06/03/19 Scott Pal MD [address] [address] Home Care Provider Orthopedics 06/03/19 Caroline Fitzgerald, PT [address] [place] [address] Statistics Professor Acute Care 06/07/19 Poppy Garcia MD [address], Desk [address]2-[address] [place] [address] Primary Staff Physician Cardiology 07/17/18 Cathead Worker Relationship Specialty Start Date End Date Agnes Diaz MD [address] [place], [place] 388961 PCP - General Family Medicine 01/12/21 Scott Pal MD [address] [address] Referring Orthopedics 06/03/19 Scott Pal MD [address] [address] Home Care Provider Orthopedics 06/03/19 Caroline Fitzgerald, PT [address] [place] [address] Statistics Professor Acute Care 06/07/19 Poppy Garcia MD [address], Desk [address] [place] [address] Primary Staff Physician Cardiology 07/17/18 Cathead Worker Relationship Specialty Start Date End Date Agnes Diaz MD [address] [place] [address] PCP - General Family Medicine 01/12/21 Scott Pal MD [address] [address] Referring Orthopedics 06/03/19 Scott Pal MD [address] [place] [address] Home Care Provider Orthopedics 06/03/19 Caroline Fitzgerald, PT [address] [place] [address] Statistics Professor Acute Care 06/07/19 Poppy Garcia MD [address] [place] [address] Primary Staff Physician Cardiology 07/17/18 Cathead Worker Relationship Specialty Start Date End Date Agnes Diaz MD [address] [place] [address] PCP - General Family Medicine 01/12/21 Scott Pal MD [address] [place] [address] 9[address] Referring Orthopedics 06/03/19 Scott Pal MD [address] [address] Home Care Provider Orthopedics 06/03/19 Caroline Fitzgerald, PT [address] [place], [place] 3482631 Statistics Professor Acute Care 06/07/19 Poppy Garcia MD [address] Gianluc[address] BOWENSk [address] [place] [address] Primary Staff Physician Cardiology 07/17/18 Cathead Worker Relationship Specialty Start Date End Date Agnes Diaz MD [address] [place] [address] PCP - General Family Medicine 01/12/21 Scott Pal MD [address] [address] Referring Orthopedics 06/03/19 Scott Pal MD [facility] E [address] [address] Home Care Provider Orthopedics 06/03/19 Caroline Fitzgerald, PT [address] [place] [address] Statistics Professor Acute Care 06/07/19 Poppy Garcia MD [address], Gianlucak J[address] [place] [address] Primary Staff Physician Cardiology 07/17/18 Cathead Worker Relationship Specialty Start Date End Date Agnes Diaz MD [address] [place] [address] PCP - General Family Medicine 01/12/21 Scott Pal MD [address] [address] Referring Orthopedics 06/03/19 Scott Pal MD [address] [address] Home Care Provider Orthopedics 06/03/19 Caroline Fitzgerald, PT [address] [place] [address] Statistics Professor Acute Care 06/07/19 Poppy Garcia MD [address], Desk [address] [place] [address] Primary Staff Physician Cardiology 07/17/18 Cathead Worker Relationship Specialty Start Date End Date Agnes Diaz MD [address] [place] [address] PCP - General Family Medicine 01/12/21 Scott Pal MD [address] [address] Referring Orthopedics 06/03/19 Scott Pal MD [address] [address] Home Care Provider Orthopedics 06/03/19 Caroline Fitzgerald, PT [address] [place] [address] Statistics Professor Acute Care 06/07/19 Poppy Garcia MD [address], Desk [address] [place] [address] Primary Staff Physician Cardiology 07/17/18 Cathead Worker Relationship Specialty Start Date End Date Agnes Diaz MD [address] [place] [address] PCP - General Family Medicine 01/12/21 Scott Pal MD [address] [address] Referring Orthopedics 06/03/19 Scott Pal MD [address] [address] Home Care Provider Orthopedics 06/03/19 Caroline Fitzgerald, PT [address] [place] [address] Statistics Professor Acute Care 06/07/19 Poppy Garcia MD [address], Desk J2-[address] [place], [place] 0758295 Primary Staff Physician Cardiology 07/17/18 Cathead Worker Relationship Specialty Start Date End Date Agnes Diaz MD [facility] [place] [address] PCP - General Family Medicine 01/12/21 Scott Pal MD [address] [address] Referring Orthopedics 06/03/19 Scott Pal MD [address] [address] Home Care Provider Orthopedics 06/03/19 Caroline Fitzgerald, PT [address] [place] [address] Statistics Professor Acute Care 06/07/19 Poppy Garcia MD [address], Desk J2-[address] [place], [place] 6020395 Primary Staff Physician Cardiology 07/17/18 Cathead Worker Relationship Specialty Start Date End Date Agnes Diaz MD [address] [place], [place] 908231 PCP - General Family Medicine 01/12/21 Scott Pal MD [address] [address] Referring Orthopedics 06/03/19 Scott Pal MD [address] [address] Home Care Provider Orthopedics 06/03/19 Caroline Fitzgerald, PT [address] [place] [address] Statistics Professor Acute Care 06/07/19 Poppy Garcia MD [address] [place], [place] 5497795 Primary Staff Physician Cardiology 07/17/18 Cathead Worker Relationship Specialty Start Date End Date Agnes Diaz MD [address] [place] [address] PCP - General Family Medicine 01/12/21 Scott Pal MD [address] [address] Referring Orthopedics 06/03/19 Scott Pal MD [address] [address] Home Care Provider Orthopedics 06/03/19 Poppy Garcia MD [address] [place] [address] Primary Staff Physician Cardiology 07/17/18 Cathead Worker Relationship Specialty Start Date End Date Agnes Diaz MD [address] [place] [address] PCP - General Family Medicine 01/12/21 Scott Pal MD [address] [place] [address] Referring Orthopedics 06/03/19 Scott Pal MD [address] [place] [address]6 Home Care Provider Orthopedics 06/03/19 Poppy Garcia MD [address] [place] [address] Primary Staff Physician Cardiology 07/17/18 Team Status: Active Member Role Status Dates Dr. Macario Hopkins III, MD Family Provider Active Dr. Salvador Diaz MD Primary Care Provider Acti ve Team Status: Inactive Member Role Status Dates Dr. Bob Cabezas MD Attending Provider, Referring Provider Active Dr. Salvador Diaz MD Primary Care Provider Acti ve Cathead Worker Relationship Specialty Start Date End Date Agnes Diaz MD [address] [place] [address] PCP - General Family Medicine 01/12/21 Scott Pal MD [address] [place] [address] Referring Orthopedics 06/03/19 Scott Pal MD [address] [place] [address], [place] [address] Home Care Provider Orthopedics 06/03/19 Poppy Garcia MD [address], Desk [address] [place] [address] Primary Staff Physician Cardiology 07/17/18 Cathead Worker Relationship Specialty Start Date End Date Agnes Diaz MD [address] [place], [place] 100771 PCP - General Family Medicine 01/12/21 Scott Pal MD [address] [place] [address] Referring Orthopedics 06/03/19 Scott Pal MD [address] [place] [address] 7[address] Home Care Provider Orthopedics 06/03/19 Poppy Garcia MD [address], Adan J[address] [place] [address] Primary Staff Physician Cardiology 07/17/18 Cathead Worker Relationship Specialty Start Date End Date Agnes Diaz MD [address] [place], [place] 999321 PCP - General Family Medicine 01/12/21 Scott Pal MD [address] [address] Referring Orthopedics 06/03/19 Scott Pal MD [address] [place] [address] 8[address]26 Home Care Provider Orthopedics 06/03/19 Poppy Garcia MD [address] [place] [address] Primary Staff Physician Cardiology 07/17/18 Cathead Worker Relationship Specialty Start Date End Date Agnes Diaz MD [address] [place] [address] PCP - General Family Medicine 01/12/21 Scott Pal MD [address] [place] [address] Referring Orthopedics 06/03/19 Scott Pal MD [address] [place] [address]46 Home Care Provider Orthopedics 06/03/19 Poppy Garcia MD [address] [place] [address] Primary Staff Physician Cardiology 07/17/18 Cathead Worker Relationship Specialty Start Date End Date Agnes Diaz MD [address] [place], [place] 715231 PCP - General Family Medicine 01/12/21 Scott Pal MD [address] [place] [address] 7[address]27 Referring Orthopedics 06/03/19 Scott Pal MD [address] [place] [address] 10471 Home Care Provider Orthopedics 06/03/19 Poppy Garcia MD [address], Desk [address] [place] [address] Primary Staff Physician Cardiology 07/17/18 Cathead Worker Relationship Specialty Start Date End Date Agnes Diaz MD [address] [place], [place] 496851 PCP - General Family Medicine 01/12/21 Scott Pal MD [address] [place] [address] 80181 Referring Orthopedics 06/03/19 Scott Pal MD [address] [place] [address] 05208 Home Care Provider Orthopedics 06/03/19 Poppy Garcia MD [address], Desk [address] [place] [address] Primary Staff Physician Cardiology 07/17/18 Provider, MD Aaliyah Client Care Specialist 10/27/23 11/25/23 Leonila Triana, RN [address] [place] [address] Primary Care Division Order Technician 10/30/23 Cathead Worker Relationship Specialty Start Date End Date Agnes Diaz MD [address] [place], [place] 554631 PCP - General Family Medicine 01/12/21 Scott Pal MD [address] [place] [address] 14562 Referring Orthopedics 06/03/19 Scott Pal MD [address] [address] Home Care Provider Orthopedics 06/03/19 Poppy Garcia MD [address], Desk [address]2-[address] [place] [address] Primary Staff Physician Cardiology 07/17/18 Aaliyah Herrera MD Client Care Specialist 10/27/23 11/25/23 Leonila Triana, CHAD [address] [place] [address] Primary Care Division Order Technician 10/30/23 Cathead Worker Relationship Specialty Start Date End Date Agnes Diaz MD [address] [place] [address] PCP - General Family Medicine 01/12/21 Scott Pal MD [address] [address] Referring Orthopedics 06/03/19 Scott Pal MD [address] [address] Home Care Provider Orthopedics 06/03/19 Poppy Garcia MD [address], Desk [address] [place] [address] Primary Staff Physician Cardiology 07/17/18 Aaliyah Herrera MD Client Care Specialist 10/27/23 11/25/23 Leonila Triana, CHAD [address] [place] [address] Primary Care Division Order Technician 10/30/23 Cathead Worker Relationship Specialty Start Date End Date Agnes Diaz MD [address] [place], [place] 910511 PCP - General Family Medicine 01/12/21 Scott Pal MD [address] [address] Referring Orthopedics 06/03/19 Scott Pal MD [address] [address] Home Care Provider Orthopedics 06/03/19 Poppy Garcia MD [address], Desk [address] [place] [address] Primary Staff Physician Cardiology 07/17/18 Provider, MD Aaliyah Client Care Specialist 10/27/23 11/25/23 Leonila Triana, RN [address] [place], [place] [phone] Primary Care Division Order Technician 10/30/23 Cathead Worker Relationship Specialty Start Date End Date Agnes Diaz MD [address] [place], [place] 431981 PCP - General Family Medicine 01/12/21 Scott Pal MD [address] [address] Referring Orthopedics 06/03/19 Scott Pal MD [address] [address] Home Care Provider Orthopedics 06/03/19 Poppy Garcia MD [address], [place]k [address] [place] [address] Primary Staff Physician Cardiology 07/17/18 Aaliyah Herrera MD Client Care Specialist 10/27/23 11/25/23 Leonila Triana, RN [address] [place], [place] [phone] Primary Care Division Order Technician 10/30/23 Cathead Worker Relationship Specialty Start Date End Date Agnes Diaz MD [address] [place], [place] 117801 PCP - General Family Medicine 01/12/21 Scott Pal MD [address] [place] [address] 9[address] Referring Orthopedics 06/03/19 Scott Pal MD [address] [place] [address] Home Care Provider Orthopedics 06/03/19 Poppy Garcia MD [address], [place]k [address] [place] [address] Primary Staff Physician Cardiology 07/17/18 Aaliyah Herrera MD Client Care Specialist 10/27/23 11/25/23 Leonila Triana, CHAD [address] [place], [place] [phone] Primary Care Division Order Technician 10/30/23 Cathead Worker Relationship Specialty Start Date End Date Agnes Diaz MD [address] [place] [address] PCP - General Family Medicine 01/12/21 Scott Pal MD [address] [place] [address] Referring Orthopedics 06/03/19 Scott Pal MD [address] [place] [address] Home Care Provider Orthopedics 06/03/19 Poppy Garcia MD [address], [place]k [address] [place] [address] Primary Staff Physician Cardiology 07/17/18 Provider, MD Aaliyah Client Care Specialist 10/27/23 11/25/23 Leonila Triana, CHAD [address] [place], [place] [id number] Primary Care Division Order Technician 10/30/23 Cathead Worker Relationship Specialty Start Date End Date Agnes Diaz MD [address] [place] [address] PCP - General Family Medicine 01/12/21 Scott Pal MD [address] [place] [address] Referring Orthopedics 06/03/19 Scott Pal MD [address] [place] [address] Home Care Provider Orthopedics 06/03/19 Poppy Garcia MD [address], Desk J[address] [place] [address] Primary Staff Physician Cardiology 07/17/18 Cathead Worker Relationship Specialty Start Date End Date Agnes Diaz MD [address] [place], [place] 335611 PCP - General Family Medicine 01/12/21 Scott Pal MD [facility] [address] [address] Referring Orthopedics 06/03/19 Scott Pal MD [facility] E [address] [address] Home Care Provider Orthopedics 06/03/19 Poppy Garcia MD [address], Desk J[address]-3 [place] [address] Primary Staff Physician Cardiology 07/17/18 Cathead Worker Relationship Specialty Start Date End Date Agnes Diaz MD [address] [place] [address] PCP - General Family Medicine 01/12/21 Scott Pal MD [address] [place] [address] Referring Orthopedics 06/03/19 Scott Pal MD [address] [place] [address] Home Care Provider Orthopedics 06/03/19 Poppy Garcia MD [address], Gianlucak J[address] [place] [address] Primary Staff Physician Cardiology 07/17/18 Cathead Worker Relationship Specialty Start Date End Date Agnes Diaz MD [address] [place] [address] PCP - General Family Medicine 01/12/21 Scott Pal MD [address] [address] Referring Orthopedics 06/03/19 Scott Pal MD [address] [address] Home Care Provider Orthopedics 06/03/19 Poppy Garcia MD [address], Desk J2-[address] [place] [address] Primary Staff Physician Cardiology 07/17/18 Cathead Worker Relationship Specialty Start Date End Date Agnes Diaz MD [address] [place] [address] PCP - General Family Medicine 01/12/21 Scott Pal MD [facility] E [address] [address] Referring Orthopedics 06/03/19 Scott Pal MD [address] [address] Home Care Provider Orthopedics 06/03/19 Poppy Garcia MD [address], Desk J[address] [place] [address] Primary Staff Physician Cardiology 07/17/18 Cathead Worker Relationship Specialty Start Date End Date Agnes Diaz MD [address] [place] [address] PCP - General Family Medicine 01/12/21 Scott Pal MD [address] [address] Referring Orthopedics 06/03/19 Scott Pal MD [address] [address] Home Care Provider Orthopedics 06/03/19 Caroline Fitzgerald, PT [address] [place] [address] Statistics Professor Acute Care 06/07/19 05/17/23 Poppy Garcia MD [address], Desk J2-[address] [place] [address] Primary Staff Physician Cardiology 07/17/18 Cathead Worker Relationship Specialty Start Date End Date Agnes Diaz MD [address] [place] [address] PCP - General Family Medicine 01/12/21 Scott Pal MD [address] [address] Referring Orthopedics 06/03/19 Scott Pal MD [address] [address] Home Care Provider Orthopedics 06/03/19 Poppy Garcia MD [address], Desk J2-[address] [place] [address] Primary Staff Physician Cardiology 07/17/18 Cathead Worker Relationship Specialty Start Date End Date Agnes Diaz MD [address] [place] [address] PCP - General Family Medicine 01/12/21 Scott Pal MD [address] [address] Referring Orthopedics 06/03/19 Scott Pal MD [address] [address] Home Care Provider Orthopedics 06/03/19 Poppy Garcia MD [address], Desk J2-[address] [place] [address] Primary Staff Physician Cardiology 07/17/18 Cathead Worker Relationship Specialty Start Date End Date Agnes Diaz MD [address] [place], [place] 420581 PCP - General Family Medicine 01/12/21 Scott Pal MD [address] [address] Referring Orthopedics 06/03/19 Scott Pal MD [address] [address] Home Care Provider Orthopedics 06/03/19 Poppy Garcia MD [address], Desk J2-[address] [place] [address] Primary Staff Physician Cardiology 07/17/18 Cathead Worker Relationship Specialty Start Date End Date Agnes Diaz MD [address] [place] [address] PCP - General Family Medicine 01/12/21 Scott Pal MD [address] [address] Referring Orthopedics 06/03/19 Scott Pal MD [address] [address] Home Care Provider Orthopedics 06/03/19 Poppy Garcia MD [address], Desk J[address] [place], [place] [phone] Primary Staff Physician Cardiology 07/17/18 Cathead Worker Relationship Specialty Start Date End Date Agnes Diaz MD [address] [place] [address] PCP - General Family Medicine 01/12/21 Scott Pal MD [address] [address] Referring Orthopedics 06/03/19 Scott Pal MD [address] [address] Home Care Provider Orthopedics 06/03/19 Poppy Garcia MD [address], Desk J[address]-3 [place], [place] 1075395 Primary Staff Physician Cardiology 07/17/18 Cathead Worker Relationship Specialty Start Date End Date Agnes Diaz MD [address] [place] [address] PCP - General Family Medicine 01/12/21 Scott Pal MD [address] [address] Referring Orthopedics 06/03/19 Scott Pal MD [address] [address] Home Care Provider Orthopedics 06/03/19 Poppy Garcia MD [address], [employer] [address] [place] [address] Primary Staff Physician Cardiology 07/17/18 Cathead Worker Relationship Specialty Start Date End Date Agnes Diaz MD [address] [place] [address] PCP - General Family Medicine 01/12/21 Scott Pal MD [address] [address] Referring Orthopedics 06/03/19 Scott Pal MD [address] [address] Home Care Provider Orthopedics 06/03/19 Poppy Garcia MD [address], Desk J[address] [place], [place] 1413[address] Primary Staff Physician Cardiology 07/17/18 Cathead Worker Relationship Specialty Start Date End Date Agnes Diaz MD [address] [place] [address] PCP - General Family Medicine 01/12/21 Scott Pal MD [address] [place] [address] Referring Orthopedics 06/03/19 Scott Pal MD [address] [place] [address] Home Care Provider Orthopedics 06/03/19 Poppy Garcia MD [address], Desk J2-[address] [place] [address] Primary Staff Physician Cardiology 07/17/18 Cathead Worker Relationship Specialty [place] [address] [place] [address] PCP - General Family Medicine 01/12/21 Scott Pal MD [address] [place] [address] 9[address] Referring Orthopedics 06/03/19 Scott Pal MD [address] [place] [address] Home Care Provider Orthopedics 06/03/19 Poppy Garcia MD [address], Desk J[address] [place], [place] [phone] Primary Staff Physician Cardiology 07/17/18 Cathead Worker Relationship Specialty Start Date End Date Agnes Diaz MD [address] [place] [address] PCP - General Family Medicine 01/12/21 Scott Pal MD [facility] E [address] [address] Referring Orthopedics 06/03/19 Scott Pal MD [address] [place] [address] Home Care Provider Orthopedics 06/03/19 Poppy Garcia MD [address], Desk J[address] [place] [address] Primary Staff Physician Cardiology 07/17/18 Cathead Worker Relationship Specialty Start Date End Date Agnes Diaz MD [address] [place] [address] PCP - General Family Medicine 01/12/21 Scott Pal MD [address] [place] [address] 8[address] Referring Orthopedics 06/03/19 Scott Pal MD [address] [place] [address] 90060 Home Care Provider Orthopedics 06/03/19 Poppy Garcia MD [address], Desk J[address] [place] [address] Primary Staff Physician Cardiology 07/17/18 Cathead Worker Relationship Specialty Start Date End Date Agnes Diaz MD [address] [place] [address] PCP - General Family Medicine 01/12/21 Scott Pal MD [address] [place] [address] Referring Orthopedics 06/03/19 Scott Pal MD [address] [place] [address] Home Care Provider Orthopedics 06/03/19 Poppy Garcia MD [address], Desk J[address] [place] [address] Primary Staff Physician Cardiology 07/17/18 Cathead Worker Relationship Specialty Start Date End Date Agnes Diaz MD [address] [place] [address] PCP - General Family Medicine 01/12/21 Scott Pal MD [address] [place] [address] Referring Orthopedics 06/03/19 Scott Pal MD [address] [place] [address] 400[address] Home Care Provider Orthopedics 06/03/19 Poppy Garcia MD [address], Desk J[address] [place] [address] Primary Staff Physician Cardiology 07/17/18 Cathead Worker Relationship Specialty Start Date End Date Agnes Diaz MD [address] [place] [address] PCP - General Family Medicine 01/12/21 Scott Pal MD [address] [place] [address] Referring Orthopedics 06/03/19 Scott Pal MD [address] [place] [address] Home Care Provider Orthopedics 06/03/19 Poppy Garcia MD [address], Desk J2-[address] [place] [address] Primary Staff Physician Cardiology 07/17/18 Mitchel Walters RN [address] [place] [address] [phone] Primary Care Division Order Technician 03/29/24 Cathead Worker Relationship Specialty Start Date End Date Agnes Diaz MD [address] [place] [address] PCP - General Family Medicine 01/12/21 Scott Pal MD [address] [place] [address] 10[address] Referring Orthopedics 06/03/19 Scott Pal MD [address] [place] [address] Home Care Provider Orthopedics 06/03/19 Poppy Garcia MD [address], Desk J[address] [place] [address] Primary Staff Physician Cardiology 07/17/18 Mitchel Walters RN [address] [place] [address] Primary Care Division Order Technician 03/29/24 Cathead Worker Relationship Specialty Start Date End Date Agnes Diaz MD [address] [place] [address] PCP - General Family Medicine 01/12/21 Scott Pal MD [facility] E [address] [address] Referring Orthopedics 06/03/19 Scott Pal MD [address] [place] [address] Home Care Provider Orthopedics 06/03/19 Poppy Garcia MD [address] [facility] [place] [address] Primary Staff Physician Cardiology 07/17/18 Mitchel Walters, CHAD [address] [place] [address] Primary Care Division Order Technician 03/29/24 Marilia Orozco APRN.CNP [address] [place], [place] 736771 Client Care Specialist Family Medicine 04/06/24 Cathead Worker Relationship Specialty Start Date End Date Agnes Diaz MD [address] [place], [place] 941551 PCP - General Family Medicine 01/12/21 Scott Pal MD [address] [address] Referring Orthopedics 06/03/19 Scott Pal MD [address] [address] Home Care Provider Orthopedics 06/03/19 Poppy Garcia MD [address], Adan J[address] [place], [place] [phone] Primary Staff Physician Cardiology 07/17/18 Mitchel Walters, CHAD [address] [place], [place] [phone] Primary Care Division Order Technician 03/29/24 PodlogMarilia stuart APRN.SUPERVISOR REMELT [address] [place] [address] Client Care Specialist Family Medicine 04/06/24 Cathead Worker Relationship Specialty Start Date End Date Macario Hopkins MD [address] [facility] [place] [address] PCP - General 04/01/11 Cathead Worker Relationship Specialty Start Date End Date Agnes Diaz MD [address] [place] [address] PCP - General Family Medicine 01/12/21 Scott Pal MD [address] [address] Referring Orthopedics 06/03/19 Scott Pal MD [address] [address] Home Care Provider Orthopedics 06/03/19 Poppy Garcia MD [address], Desk J[address] [place] [address] Primary Staff Physician Cardiology 07/17/18 PodlogMarilia stuart APRN.SUPERVISOR REMELT [address] [place] [address] [facility] Cathead Worker Relationship Specialty Start Date End Date Agnes Diaz MD [address] [place], [place] 027651 PCP - General Family Medicine 01/12/21 Scott Pal MD [address] [phone] Referring Orthopedics 06/03/19 Scott Pal MD [address] [phone] Home Care Provider Orthopedics 06/03/19 Poppy Garcia MD [address], [place]k [address] [place] [address] Primary Staff Physician Cardiology 07/17/18 PodlogarMarilia APRN.SUPERVISOR REMELT [address] [place] [address] [facility] 04/06/24 Team Status: Inactive Member Role Status Dates Dr. Salvador Diaz MD Primary Care Provider Acti ve Start: March 26, 2024 End: March 28, 2024 Dr. Thomas Domínguez , Emergency Provider Active Start: March 26, 2024 End: March 28, 2024 Dr. Andrea Serrano , Admit Provider Active Start: March 26, 2024 End: March 28, 2024 Dr. Andrea Serrano , Other Provider Active Start: March 26, 2024 End: March 28, 2024 Dr. Altagracia Lo MD Attending Provider Active Start: March 26, 2024 End: March 28, 2024 Dr. Beau Pike MD Other Provider Active St art: March 26, 2024 End: March 28, 2024 Team Status: Active Member Role Status Dates Dr. Salvador Diaz MD Primary Care Provider Acti ve Start: March 26, 2024 Dr. Thomas Domínguez DO Emergency Provider Active Start: March 26, 2024 Dr. Andrea Serrano , DO Admit Provider Active Start: March 26, 2024 Dr. Andrea Serrano DO Other Provider Active Start: March 26, 2024 Dr. Altagracia Lo MD Referring Provider Active Start: March 26, 2024 Dr. Altagracia Lo MD Other Provider Active St art: March 26, 2024 Dr. Alex Sher DO Attending Provider Active Start: March 26, 2024 Team Status: Active Member Role Status Dates Dr. Salvador Diaz MD Primary Care Provider Acti ve Start: March 27, 2024 Dr. Alex Sher DO Attending Provider Active Start: March 27, 2024 Dr. Altagracia Lo MD Referring Provider Active Start: March 27, 2024 Team Status: Active Member Role Status Dates Dr. Salvador Diaz MD Primary Care Provider Acti ve Start: March 27, 2024 Dr. Thomas Domínguez DO Emergency Provider Active Start: March 27, 2024 Dr. Andrea Serrano DO Admit Provider Active Start: March 27, 2024 Dr. Andrea Serrano DO Other Provider Active Start: March 27, 2024 Dr. Altagracia Lo MD Attending Provider Active Start: March 27, 2024 Dr. Altagracia Lo MD Other Provider Active St art: March 27, 2024 Team Status: Active Member Role Status Dates Dr. Salvador Diaz MD Primary Care Provider Acti ve Start: March 28, 2024 Dr. Thomas Domínguez DO Emergency Provider Active Start: March 28, 2024 DrDarrel Serrano DO Admit Provider Active Start: March 28, 2024 Dr. Andrea Serrano DO Other Provider Active Start: March 28, 2024 Dr. Altagracia Lo MD Referring Provider Active Start: March 28, 2024 Dr. Altagracia Lo MD Other Provider Active St art: March 28, 2024 Dr. Beau Pike MD Other Provider Active St art: March 28, 2024 Dr. Mario Avalos MD Attending Provider Active Start: March 28, 2024 Team Status: Active Member Role Status Dates Dr. Salvador Diaz MD Primary Care Provider Acti ve Start: March 28, 2024 Dr. Thomas Domínguez DO Emergency Provider Active Start: March 28, 2024 Dr. Andrea Serrano DO Admit Provider Active Start: March 28, 2024 Dr. Andrea Serrano DO Other Provider Active Start: March 28, 2024 Dr. Altagracia Lo MD Attending Provider Active Start: March 28, 2024 Dr. Altagracia Lo MD Other Provider Active St art: March 28, 2024 Dr. Beau Pike MD Other Provider Active St art: March 28, 2024 Team Status: Inactive Member Role Status Dates Dr. Salvador Diaz MD Primary Care Provider Acti ve Start: April 16, 2024 End: April 16, 2024 Dr. Salvador Diaz MD Referring Provider Active Start: April 16, 2024 End: April 16, 2024 Dr. Alex Sher DO Attending Provider Active Start: April 16, 2024 End: April 16, 2024 Cathead Worker Relationship Specialty Start Date End Date Agnes Diaz MD [address] [place] [address] PCP - General Family Medicine 01/12/21 Scott Pal MD [address] [facility] [address] [place] [address] Referring Orthopedics 06/03/19 Scott Pal MD [address] [address] Home Care Provider Orthopedics 06/03/19 Poppy Garcia MD [address], Desk J[address] [place] [address] Primary Staff Physician Cardiology 07/17/18 PodlogarMarilia APRN.SUPERVISOR REMELT [address] [place] [address] Client Care Specialist Family Medicine 04/06/24 Amanda Curtis APRN.SUPERVISOR REMELT [address] [place] [address] [phone] Client Care Specialist [facility] 07/22/24 Cathead Worker Relationship Specialty Start Date End Date Agnes Diaz MD [address] [place] [address] PCP - General Family Medicine 01/12/21 Scott Pal MD [address] [place] [address] 24692 Referring Orthopedics 06/03/19 Scott Pal MD [address] [place] [address] 79[address] Home Care Provider Orthopedics 06/03/19 Poppy Garcia MD [address], Desk J[address] [place] [address] Primary Staff Physician Cardiology 07/17/18 Podlogar, SELENE Capellan.SUPERVISOR REMELT [facility] [place] [address] Client Care Specialist Family Medicine 04/06/24 Amanda Curtis APRN.SUPERVISOR REMELT [address] [place] [address] Client Care Specialist [facility] 07/22/24 Cathead Worker Relationship Specialty Start Date End Date Agnes Diaz MD [address] [place] [address] PCP - General Family Medicine 01/12/21 Scott Pal MD [address] [place] [address] [phone] Referring Orthopedics 06/03/19 Scott Pal MD [address] [place] [address] Home Care Provider Orthopedics 06/03/19 Poppy Garcia MD [address] [place], [place] 4436295 Primary Staff Physician Cardiology 07/17/18 PodlogarMarilia APRN.SUPERVISOR REMELT [address] [place] [address] Client Care Specialist Family Medicine 04/06/24 Amanda Curtis APRN.SUPERVISOR REMELT [address] [place], [place] [phone] Client Care Specialist [facility] 07/22/24 Cathead Worker Relationship Specialty Start Date End Date Agnes Diaz MD [address] [place], [place] [id number] PCP - General Family Medicine 01/12/21 Scott Pal MD [address] [address] Referring Orthopedics 06/03/19 Scott Pal MD [address] [address] Home Care Provider Orthopedics 06/03/19 Poppy Garcia MD [address] [facility] [place], [place] [phone] Primary Staff Physician Cardiology 07/17/18 PodlogarMarilia APRN.SUPERVISOR REMELT [address] [place] [address] Client Care Specialist Family Medicine 04/06/24 Amanda Curtis APRN.SUPERVISOR REMELT [address] [place], [place] [phone] Client Care Specialist Family Medicine 07/22/24 Cathead Worker Relationship Specialty Start Date End Date Agnes Diaz MD [address] [place] [address] PCP - General Family Medicine 01/12/21 Scott Pal MD [address] [address] Referring Orthopedics 06/03/19 Scott Pal MD [address] [address] Home Care Provider Orthopedics 06/03/19 Popyp Garcia MD [address], Desk [address] [place] [address] Primary Staff Physician Cardiology 07/17/18 Podlogar, SELENE Capellan.SUPERVISOR REMELT [address] [place], [place] 362781 [facility] 04/[facility]/24 Amanda Curtis APRN.SUPERVISOR REMELT [address] [place], [place] 247611 [facility] 07/22/24 Cathead Worker Relationship Specialty Start Date End Date Agnes Diaz MD [address] [place], [place] 897181 PCP - General Family Medicine 01/12/21 Scott Pal MD [address] [phone] Referring Orthopedics 06/03/19 Scott Pal MD [address] [address] Home Care Provider Orthopedics 06/03/19 Poppy Garcia MD [address], Desk [address] [place] [address] Primary Staff Physician Cardiology 07/17/18 Podlogar, SELENE Capellan.SUPERVISOR REMELT [address] [place] [address] Client Care Specialist Family Medicine 04/06/24 Amanda Curtis APRN.SUPERVISOR REMELT [address] [place] [address] [facility]/24 Team Status: Inactive Member Role Status Dates Dr. Salvador Diaz MD Primary Care Provider Acti ve Start: September 17, 2024 End: September 17, 2024 Dr. Salvador Diaz MD Referring Provider Active Start: September 17, 2024 End: September 17, 2024 Dr. Troy Valentino MD Attending Provider Active Start: September 17, 2024 End: September 17, 2024 Cathead Worker Relationship Specialty Start Date End Date Agnes Diaz MD [address] [place], [place] 788831 PCP - General Family Medicine 01/12/21 Scott Pal MD [address] [address] Referring Orthopedics 06/03/19 Scott Pal MD [address] [address] Home Care Provider Orthopedics 06/03/19 Poppy Garcia MD [address], Adan [address] [place], [place] [phone] Primary Staff Physician Cardiology 07/17/18 PodlogarMarilia APRN.SUPERVISOR REMELT [address] [place], [place] 425511 [facility] 04/06/24 Team Status: Inactive Member Role Status Dates Dr. Salvador Diaz MD Primary Care Provider Acti ve Start: October 07, 2024 End: October 07, 2024 Dr. Salvador Diaz MD Referring Provider Active Start: October 07, 2024 End: October 07, 2024 Dr. Alex Sher DO Attending Provider Active Start: October 07, 2024 End: October 07, 2024 Team Status: Active Member Role Status Dates Dr. Salvador Diaz MD Primary Care Provider Acti ve Start: October 07, 2024 Dr. Salvador Diaz MD Referring Provider Active Start: October 07, 2024 Dr. Alex Sher DO Attending Provider Active Start: October 07, 2024 Dr. Alex Sher DO Other Provider Active St art: October 07, 2024 Cathead Worker Relationship Specialty Start Date End Date Agnes Diaz MD [address] [place], [place] 485321 PCP - General Family Medicine 01/12/21 Scott Pal MD [address] [address] Referring Orthopedics 06/03/19 Scott Pal MD [address] [address] Home Care Provider Orthopedics 06/03/19 Poppy Garcia MD [address], Adan [address] [place], [place] [phone] Primary Staff Physician Cardiology 07/17/18 PodlogarMarilia APRN.CNP [address] [place], [place] [phone] Client Care Specialist Family Medicine 04/06/24 Cathead Worker Relationship Specialty Start Date End Date Agnes Diaz MD [address] [place], [place] 366521 PCP - General Family Medicine 01/12/21 Scott Pal MD [address] [address] Referring Orthopedics 06/03/19 Scott Pal MD [address] [address] Home Care Provider Orthopedics 06/03/19 Poppy Garcia MD [address], [place]k [address] [place] [address] Primary Staff Physician Cardiology 07/17/18 PodlogarMarilia APRN.SUPERVISOR REMELT [address] [place] [address] Client Care Specialist Family Medicine 04/06/24 Cathead Worker Relationship Specialty Start Date End Date Agnes Diaz MD [address] [place] [address] PCP - General Family Medicine 01/12/21 Scott Pal MD [address] [address] Referring Orthopedics 06/03/19 Scott Pal MD [address] [address] Home Care Provider Orthopedics 06/03/19 Poppy Garcia MD [address], Desk J[address] [place], [place] [phone] Primary Staff Physician Cardiology 07/17/18 PodlogarMarilia APRN.SUPERVISOR REMELT [address] [place] [address] Client Care Specialist [facility] 04/06/24 Amanda Curtis APRN.SUPERVISOR REMELT [address] [place] [address] Client Care Specialist [facility] 10/10/24 Goals (unrecognized section and content) Goals may be documented in a n alternate sectionGoals may be documented in an alternate section (unrecognized sect ion and content) No Status Records FoundNo Status Records FoundNo Status Records FoundNo Status Records FoundNo Status Records FoundNo Status Records Found INFORMATION SOURCE (unrecogn ized section and content) DATE CREATED AUTHOR 01/10/2023 [facility] DATE CREATED AUTHOR AUTHOR'S ORGANIZ ATION 01/16/2024 [facility] DATE CREATED AUTHOR AUTHOR'S ORGANIZ ATION 01/22/2024 [facility] DATE CREATED AUTHOR AUTHOR'S ORGANIZ ATION 09/27/2024 [facility] DATE CREATED AUTHOR AUTHOR'S ORGANIZ ATION 10/09/2024 [facility] DATE CREATED AUTHOR AUTHOR'S ORGANIZ ATION 10/21/2024 [facility] FOR RECORDS PERTAINING TO PATIENTS WHO ARE [...] BE BASED ON THE PRIMARY CLINICAL RECORDS. [employer] provides no warranty or guarantee of the accuracy or completeness of information in this document."
--- NOTE | 2024-10-22 00:21 | EKG12_ITS ---
Test Reason : DYSRHYTHMIA Blood Pressure : */* mmHG Vent. Rate : 71 BPM Atrial Rate : 71 BPM P-R Int : 176 ms QRS Dur : 82 ms QT Int : 420 ms P-R-T Axes : 20 3 19 degrees QTcB Int : 456 ms Sinus rhythm with marked sinus arrhythmia Nonspecific ST abnormality Abnormal ECG Confirmed by EMMANUEL FORD, ESTRELLITA ([id number]), associate entertainment editor SEAN DALTON ([id number]) on 10/22/2024 11:29:07 AM Referred By: BB Confirmed By: ESTRELLITA BENITEZ MD
--- NOTE | 2024-10-22 00:25 | EDS_ITS ---
HPI History of Present Illness Chief Complaint: General Illness Informant: patient Narrative Narrative: 79-year-old male presents with nausea and vomiting for the last hour or 2 and feeling poorly. No abdominal pain, chest pain, cough, dyspnea. He states he felt like he was sweating. EMS was called because he felt poorly. EMS checked his temperature of 102.5, the patient did not know he had a fever prior to them checking. He states these symptoms he had in the past when he had biliary issues. He states in March he had an ERCP with biliary stent, stent was removed and then he had another ERCP 1.5-2 months ago, and the stent was placed back in. 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 Elevated liver enzymes Pancreatic mass High cholesterol Hx of gastroesophageal reflux (GERD) Hypothyroidism Hypertension Home Medications ?Medication ?Instructions ?Recorded ?Last Taken ?Type lisinopril 40 mg tablet 40 mg PO DAILY blood pressur e 01/31/13 10/06/24 History atorvastatin 40 mg tablet 40 mg PO QHS cholesterol #90 09/05/16 10/06/24 Rx TABLETS gabapentin 300 mg capsule 300 mg PO QHS nerve pain 10/06/24 History metoprolol succinate 50 mg 50 mg PO DAILY blood pressu re 10/22/23 10/06/24 History tablet,extended release 24 hr apixaban 5 mg tablet (Eliquis) 5 mg PO BID blood thinn er 03/26/24 10/03/24 History hydrochlorothiazide 25 mg tablet 25 mg PO DAILY reduce fluid 03/26/24 10/06/24 History Held on 10/21/24. Instructions: does not think it does much levothyroxine 125 mcg tablet 125 mcg PO DAILY disorder of 03/26/24 10/06/24 History thyroid gland aspirin 81 mg tablet,delayed 81 mg PO DAILY 08/31/24 0 10/03/24 History release (Adult Aspirin Regimen) multivitamin (Daily Multi-Vitamin 1 tab PO DAILY 08/3110/06/24 History tablet) Allergy/AdvReac Type Severity Reaction Status Date / Time azithromycin (From Zithromax) Allergy Itching Verified 10/21/24 23:18 bee venom protein (honey bee) AdvReac Swelling Verified 10/21/24 23:18 venom-wasp (wasps) AdvReac Swelling Verified 10/21/24 23:18 Surgical History History of total right hip arthroplasty S/P carpal tunnel release History of tonsillectomy History of ERCP Social History Smoking Status: Never smoker ROS ROS ED Constitutional Constitutional ED: Reports fever(s), malaise and sweats; Denies chills Eyes Eyes: Denies change in vision or diplopia ENT ENT ED: Denies rhinorrhea or sore throat Cardiovascular Cardiovascular: Denies chest pain or palpitations Respiratory/Chest Respiratory/Chest: Denies cough or dyspnea Gastrointestinal Gastrointestinal: Reports nausea and vomiting; Denies abdominal pain, diarrhea, hematemesis or melena Genitourinary Genitourinary ED: Denies dysuria or hematuria Musculoskeletal Musculoskeletal: Denies back pain or neck pain Integumentary Denies abscess or rash Neurologic Neurologic: Denies headache(s), paresthesias or weakness Psychiatric Psychiatric: Denies anxiety or suicidal thoughts EXAM Physical Exam Const Vital Signs: 10/21/24 23:17 10/21/24 23:17 10/21/24 23:23 Temperature 100.1 F H 100.1 F H Temperature Source Oral Oral Pulse Rate 76 75 Respiratory Rate 16 16 Respiratory Effort Normal Non-Labored Respiratory Pattern Normal Blood Pressure 116/65 116/65 Blood Pressure Mean 82 82 Pulse Ox 98 94 Oxygen Delivery Method Room Air Room Air 10/22/24 00:17 10/22/24 00:21 10/22/24 00:23 Temperature 99.2 F H 99.2 F H Temperature Source Oral Oral Pulse Rate 81 66 Respiratory Rate 16 19 H Respiratory Effort Respiratory Pattern Blood Pressure 118/65 118/65 Blood Pressure Mean 82 82 Pulse Ox 98 95 93 Oxygen Delivery Method Room Air Room Air Room Air 10/22/24 01:00 10/22/24 02:00 10/22/24 03:00 Temperature 99.1 F 98.9 F 98.6 F Temperature Source Oral Oral Oral Pulse Rate 53 L 66 58 L Respiratory Rate 16 16 16 Respiratory Effort Respiratory Pattern Blood Pressure 125/66 H 118/59 L 97/59 L Blood Pressure Mean 85 78 71 Pulse Ox 94 95 98 Oxygen Delivery Method Room Air Room Air Room Air 10/22/24 04:00 10/22/24 04:03 Temperature 98.6 F 98.6 F Temperature Source Oral Pulse Rate 60 60 Respiratory Rate 15 15 Respiratory Effort Respiratory Pattern Blood Pressure 100/59 L 100/59 L Blood Pressure Mean 72 72 Pulse Ox 97 97 Oxygen Delivery Method Room Air Positive well nourished, well developed and obese General Appearance ED: well developed and NAD Nutritional Appearance: obese HEENT Reports moist mucous membranes normocephalic and atraumatic Eyes PERRL and EOMs intact bilaterally Neck full ROM and supple Resp normal respiratory effort and clear to auscultation bilaterally Cardio regular rate, regular rhythm and no murmurs Rate: Negative for tachycardic GI non-tender and non-distended Auscultation: normoactive bowel sounds Palpation: soft Back/Spine no CVA tenderness General Back: other FROM Extremity normal to inspection General Extremety ED: Yes edema; Negative for pulses abnormal or tenderness General Extremity: edema bilateral lower extremity Details: moderate (Symmetric, with changes of chronic stasis dermatitis bilaterally. Nontender. All compartments soft and nondistended.); Negative for pulses abnormal Neuro oriented x3, CN's II-XII intact bilaterally and no sensory deficits noted Sensorium / Orientation: awake and alert Motor Exam: strength 5/5 throughout Psych mental status grossly normal Skin no rashes or lesions noted and no wounds MDM MDM MDM Narrative Medical decision making narrative: Septic workup was obtained, searching for possible source for his infection as well. Two-view chest x-ray my interpretation negative for pneumonia, he was not able to give us urine as he accidentally spilled it when attempting to provide specimen but he has had no urinary symptoms or flank pain/CVA tenderness to suggest pyelonephritis. He had a true fever per EMS, 100.1 here in the ER and after Tylenol 98.6. Feeling better after IV fluids and Zofran. His abdomen is benign. He has a borderline white blood count with a left shift although there are no bands, and his liver enzymes are reassuringly normal although he had a total bilirubin of 0.8 in August when he had choledocholithiasis on ERCP. I discussed with Dr. Friend. He suggest out of concern for the possibility of early cholangitis since we do not have an alternative source at this time to treat him empirically with IV antibiotics and admit him and he would consult. Discussed with hospitalist as well, who requested a CT of the abdomen/pelvis be performed. This was done as requested. I reviewed the images and the report which I agree with. Nothing acute. Chronic abnormalities grossly unchanged. Presence of pneumobilia which can be present with biliary stent placement and is not necessarily specific cholangitis. History & Record Review Additional record(s) reviewed:: Prior outpatient record (ERCP 08/2024: Cho ledocholithiasis, stones removed stent placed, ampulla of Vater lesion biopsied which was negative for malignancy) Lab Data Attestation: I reviewed the patient's lab results. Labs: Laboratory Results - last 24 hr 10/22/24 00:35 WBC 10.6 RBC 4.38 L Hgb 13.8 Hct 41.2 MCV 94.1 H MCH 31.5 MCHC 33.5 RDW Std Deviation 44.9 H RDW Coeff of Gisella 13.1 Plt Count 197 MPV 9.8 Immature Gran % (Auto) 0.500 Neut % (Auto) 88.6 H Lymph % (Auto) 4.8 L [place] % (Auto) 5.8 Eos % (Auto) 0.1 Baso % (Auto) 0.2 Absolute Neuts (auto) 9.4 H Absolute Lymphs (auto) 0.51 L Nucleated RBC % 0 PT 15.3 H INR 1.2 APTT 27.9 Sodium 140 Potassium 4.0 Chloride 104 Carbon Dioxide 23.7 Anion Gap 13 BUN 28 H Creatinine 1.86 H Estim Creat Clear Calc 43.92 L Est GFR (MDRD) Non-Af 36 L BUN/Creatinine Ratio 15.2 Glucose 189 H Lactic Acid 2.3 H* Calcium 8.5 Total Bilirubin 0.75 AST 28 ALT 33 Alkaline Phosphatase 93 Total Protein 6.2 Albumin 3.4 Globulin 2.8 Albumin/Globulin Ratio 1.2 Lipase 35 Radiography Diagnostic Testing: Clinical Impression(s) from Imaging Studies Chest X-Ray 10/22/24 00:48 IMPRESSION: No evidence for acute abnormality. Reading [facility] Abdomen/Pelvis CT 10/22/24 04:02 IMPRESSION: Unchanged benign chronic calcified 1.8 cm lesion in the anterior mediastinum. Small sliding hiatal hernia. Diffuse thickening of the stomach suggestive of gastritis. Mild hepatic steatosis. CBD stent is noted. Pneumobilia is noted. Unchanged multiple cystic lesions of the pancreatic tail. Scattered right renal simple cysts are noted with the largest measuring 3.5 cm. Uncomplicated colonic diverticulosis. Unremarkable metallic prosthesis of the right hip. Mild diffuse spondylosis. Unchanged mild chronic compression deformity of T11 vertebral body. Decreased diffuse thickening of the gallbladder. Reading Location: [place] [id number] Rhythm Strip Rhythm Strip: Sinus Rhythm Rate: 70 Ectopy: PAC(s) EKG Initial EKG: Attestation: I personally reviewed and interpreted this EKG as follows: Interpretation: Sinus Rhythm and No Acute Injury Pattern Management Discussion w/another healthcare provider: Hospitalist and Program Support Assistant (GI Dr. Calvin cameron) Discharge Plan Dx/Rx/DC Orders Clinical Impression: Fever, Vomiting, History of biliary stent insertion Disposition Disposition: Acute Care Hospital [facility]
[2024-10-22] MEDS: 0.9% Normal Saline (500mL Bag) 500 ML 999 ML IV (00:37)
[2024-10-22] MEDS: Ondansetron 4 MG/2 ML Vial IV ×3 (00:37→23:41)
[2024-10-22] MEDS: Acetaminophen 500 MG Tablet 1000 MG PO (00:39)
[2024-10-22 00:48] LABS: Absolute Lymphocyte Count 0.51 X10^3/uL (0.83-4.51); Absolute Neutrophil Count 9.4 X10^3/uL (2.0-7.7); Basophil# 0.02 X10^3/uL; Basophil% 0.2 % (0-1); Eosinophil# 0.01 X10^3/uL; Eosinophils% 0.1 % (0-5); Hematocrit 41.2 % (40-54); Hemoglobin 13.8 g/dL (13.0-16.5); Lymphocyte # 0.51 X10^3/ul (0.83-4.51); Lymphocyte % 4.8 % (19-41); Mean Corp Hgb Conc 33.5 g/dL (32-36); Mean Corpuscular Hgb 31.5 pg (27.0-32.0); Mean Corpuscular Volume 94.1 fL (80-94); Mean Platelet Vol. 9.8 fl (6.2-12.0); Monocyte# 0.61 X10^3/uL; Monocyte% 5.8 % (0-10); NRBC Flagged by Analyzer 0 % (0-5); Neutrophil # 9.38 X10^3/uL (2.7-7.7); Neutrophil % 88.6 % (47-70); POSITIVE DIFFERENTIAL YES; Platelet Count 197 K/mm3 (150-450); RBC Distribution Width CV 13.1 % (11.6-14.6); RBC Distribution Width SD 44.9 fl (35.1-43.9); Red Blood Count 4.38 M/mm3 (4.6-6.2); White Blood Count 10.6 K/mm3 (4.4-11.0)
--- NOTE | 2024-10-22 00:48 | RAD_ITS ---
PROCEDURE: CHEST PA AND LATERAL 10/22/2024 REASON FOR EXAM: FEVER TECHNIQUE: CHEST PA AND LATERAL COMPARISON: None. FINDINGS: The lungs are expanded. There is no demonstrated parenchymal abnormality. There is no demonstrated pleural abnormality. Normal heart and pericardium. Normal mediastinum and alek. Normal visualized pulmonary arteries. Normal visualized aortic arch and descending thoracic aorta. Normal visualized thoracic spine. Normal visualized ribs, clavicles, and shoulders. There is no demonstrated abnormality of the visualized soft tissue structures of the upper abdomen. RAD/Chest PA and Lateral IMPRESSION: No evidence for acute abnormality. Reading [facility]
[2024-10-22 00:58] LABS: International Normalized Ratio 1.2; Prothrombin Time (Protime)PT. 15.3 SECONDS (11.7-14.9)
[2024-10-22 00:59] LABS: Partial Thromboplast Time 27.9 Seconds (24.1-36.2)
[2024-10-22 01:12] LABS: Lactic Acid 2.3 mmol/L (0.0-2.0)
[2024-10-22 01:13] LABS: ALB/GLOB Ratio 1.2 RATIO (0.9-2.4); AST(SGOT) 28 U/L (<=37); Alanine Aminotransfer ALT/SGPT 33 U/L (<=46); Albumin, Serum 3.4 g/dL (3.4-4.8); Alkaline Phosphatase 93 U/L (40-129); Anion Gap 13 (5-15); BUN 28 mg/dL (4-19); BUN/Creat Ratio 15.2 RATIO (10-20); Calcium,Total 8.5 mg/dL (7.6-11.0); Carbon Dioxide 23.7 mmol/L (21.0-32.0); Chloride 104 mmol/L (98-108); Creatinine, Serum 1.86 mg/dL (0.70-1.20); EST Glomerular Filtration Rate 36 (>60); Estimated Creatinine Clearance 43.92 ml/min (50-250); Globulin 2.8 g/dL (2.2-4.2); Glucose 189 mg/dL (70-99); Lipase 35 U/L (13-75); Protein, Total 6.2 g/dL (5.9-8.4); Sodium Level 140 mmol/L (133-145); Total Bilirubin 0.75 mg/dL (0.00-1.30)
--- NOTE | 2024-10-22 03:59 | PCM.HP.STD ---
[facility] - General General Date of Admission: 10/22/24 Date of Service: 10/22/24 Chief Complaint: Fever, Nausea and Vomiting. HPI Narrative FRAN LOPEZ, is a 79 M with a past medical history of essential hypertension; on metoprolol and lisinopril, hyperlipidemia; on atorvastatin, hypothyroidism; on levothyroxine, morbid obesity; with BMI of 42.9 this admission, history of saddle PE; on apixaban, CKD; stage IIIa, neuropathy; on gabapentin, history of shingles (2023), history of inguinal hernia (~2014), history of colonic diverticulosis, bilateral CTS; s/p release, OA; s/p Right THR plus sciatica and history of admission here from March 26, 2020 for 2 March 28, 2024 for treatment of nausea, vomiting and abdominal pain with ~6 cm cystic lesion in the pancreatic tail on CT with suspected pancreatitis, transaminitis and hyperbilirubinemia of 4 mg/dL due to cholestatic hepatitis with patient ultimately diagnosed with choledocholithiasis without cholangitis, cholecystitis or obstruction with subsequent biliary stent placement after pancreatic and biliary sphincterotomy with balloon extraction by Dr. 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 Mr. Lopez reports his symptoms began ~2 hours prior to arrival and he began to feel poorly followed by nausea and bilious emesis. He then activated EMS who noted temperature of 102.5 ?F. He states he had similar symptoms in the past that were attributed to his cystic pancreatic lesion that required ERCP with stent placement. However, on this occasion he denies abdominal pain. He also denies blood in stools, blood in vomitus, runny nose, sore throat, ear pain, chest pain, palpitations, heart racing, cough, shortness of breath, dysuria, hematuria, back pain headache or rash. In the ER he was noted to have Lactic Acidosis of 2.3 mmol/L present on admission with additional laboratory evidence of possible ROSSANA; with elevated serum creatinine of 1.86 mg/dL (up from his baseline of 1.46 mg/dL last admission). The ER physician then spoke to Dr. 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 Elevated liver enzymes Pancreatic mass High cholesterol Hx of gastroesophageal reflux (GERD) Hypothyroidism Hypertension Home Medications ?Medication ?Instructions ?Recorded ?Last Taken ?Type lisinopril 40 mg tablet 40 mg PO DAILY blood pressure 01/31/13 10/06/24 History atorvastatin 40 mg tablet 40 mg PO QHS cholesterol #90 09/05/16 10/06/24 Rx TABLETS gabapentin 300 mg capsule 300 mg PO QHS nerve pain 10/22/23 10/06/24 History metoprolol succinate 50 mg 50 mg PO DAILY blood pressure 10/22/23 10/06/24 History tablet,extended release 24 hr apixaban 5 mg tablet (Eliquis) 5 mg PO BID blood thinner 03/26/24 10/03/24 History hydrochlorothiazide 25 mg tablet 25 mg PO DAILY reduce fluid 03/26/24 10/06/24 History Held on 10/21/24. Instructions: does not think it does much levothyroxine 125 mcg tablet 125 mcg PO DAILY disorder of 03/26/24 10/06/24 History thyroid gland aspirin 81 mg tablet,delayed 81 mg PO DAILY 08/31/24 10/03/24 History release (Adult Aspirin Regimen) multivitamin (Daily Multi-Vitamin 1 tab PO DAILY 08/31/24 10/06/24 History tablet) Allergy/AdvReac Type Severity Reaction Status Date / Time azithromycin (From Zithromax) Allergy Itching Verified 10/21/24 23:18 bee venom protein (honey bee) AdvReac Swelling Verified 10/21/24 23:18 venom-wasp (wasps) AdvReac Swelling Verified 10/21/24 23:18 Surgical History History of total right hip arthroplasty S/P carpal tunnel release History of tonsillectomy History of ERCP Social History Smoking Status: Never smoker ROS ROS Narrative Review of Systems: Constitutional: Patient admits to fever but he denies chills. Eyes: Patient denies changes in vision or discharge from eyes. ENT: Patient denies runny nose, sore throat or ear pain. Resp: Patient denies shortness of breath or cough. GI: Patient admits to nausea and vomiting with bilious emesis as per HPI. He denies abdominal pain. : Patient denies dysuria, hematuria or urinary frequency. MSK: Patient denies arthralgias or myalgias. Skin: Patient denies rash, abscess, wounds or jaundice. Psych: Patient denies symptoms uncontrolled depression or anxiety. Neuro: Patient denies headache, paresthesias or focal neurologic deficits. Allergy: Patient denies lip swelling, tongue swelling or urticaria. Hematology: Patient denies easy bleeding or easy bruisability. Endocrinology: Patient denies polyuria, polydipsia or polyphagia. 14 point ROS otherwise negative save for positives noted above in HPI. Vital Signs Vital Signs Vital Signs: 10/21/24 23:17 10/21/24 23:17 10/21/24 23:23 Temperature 100.1 F H 100.1 F H Temperature Source Oral Oral Pulse Rate 76 75 Respiratory Rate 16 16 Respiratory Effort Normal Non-Labored Respiratory Pattern Normal Blood Pressure 116/65 116/65 Blood Pressure Mean 82 82 Pulse Ox 98 94 Oxygen Delivery Method Room Air Room Air 10/22/24 00:17 10/22/24 00:21 10/22/24 00:23 Temperature 99.2 F H 99.2 F H Temperature Source Oral Oral Pulse Rate 81 66 Respiratory Rate 16 19 H Respiratory Effort Respiratory Pattern Blood Pressure 118/65 118/65 Blood Pressure Mean 82 82 Pulse Ox 98 95 93 Oxygen Delivery Method Room Air Room Air Room Air 10/22/24 01:00 10/22/24 02:00 10/22/24 03:00 Temperature 99.1 F 98.9 F 98.6 F Temperature Source Oral Oral Oral Pulse Rate 53 L 66 58 L Respiratory Rate 16 16 16 Respiratory Effort Respiratory Pattern Blood Pressure 125/66 H 118/59 L 97/59 L Blood Pressure Mean 85 78 71 Pulse Ox 94 95 98 Oxygen Delivery Method Room Air Room Air Room Air Weight Weight: 298 lb 15.149 oz Body Mass Index (BMI) 42.9 Results Medical Records Data Attestation: I reviewed the patient's medical records Lab / Micro Data Attestation: I reviewed the patient's lab results. 10/22/24 00:35 10/22/24 00:35 Labs: Laboratory Results - last 24 hr 10/22/24 00:35: WBC 10.6, RBC 4.38 L, Hgb 13.8, Hct 41.2, MCV 94.1 H, MCH 31.5, MCHC 33.5, RDW Std Deviation 44.9 H, RDW Coeff of Gisella 13.1, Plt Count 197, MPV 9.8, Immature Gran % (Auto) 0.500, Neut % (Auto) 88.6 H, Lymph % (Auto) 4.8 L, [place] % (Auto) 5.8, Eos % (Auto) 0.1, Baso % (Auto) 0.2, Absolute Neuts (auto) 9.4 H, Absolute Lymphs (auto) 0.51 L, Nucleated RBC % 0, PT 15.3 H, INR 1.2, APTT 27.9, Sodium 140, Potassium 4.0, Chloride 104, Carbon Dioxide 23.7, Anion Gap 13, BUN 28 H, Creatinine 1.86 H, Estim Creat Clear Calc 43.92 L, Est GFR (MDRD) Non-Af 36 L, BUN/Creatinine Ratio 15.2, Glucose 189 H, Lactic Acid 2.3 H*, Calcium 8.5, Total Bilirubin 0.75, AST 28, ALT 33, Alkaline Phosphatase 93, Total Protein 6.2, Albumin 3.4, Globulin 2.8, Albumin/Globulin Ratio 1.2, Lipase 35 Rhythm Strip Rhythm Strip: Sinus Rhythm Rate: 70 Ectopy: PAC(s) Imaging Radiology Impression Chest X-Ray 10/22/24 00:48 IMPRESSION: No evidence for acute abnormality. Reading Location: [facility] Imaging Services [address] [place] [address] Abdomen/Pelvis W IV Cont ONLY MR#: [id number] Acct: [id number] Name: FRAN LOPEZ Rep #: [id number] : 1945 M 79 From: Harsh Granger MD PCP: Dr. Salvador Diaz MD Status: [facility] Study: Abdomen/Pelvis W IV Cont ONLY Date of Exam: 10/22/24 Exam# [id number] Ordering Dr: Manuel Alvarez MD PROCEDURE: ABDOMEN/PELVIS W IV CONT ONLY 10/22/2024 REASON FOR EXAM: FEVER, VOMITING, RECENT BILIARY STENT TECHNIQUE: ABDOMEN/PELVIS W IV CONT ONLY Coronal and Sagittal reconstruction series were provided. CONTRAST: Isovue-350. VOLUME: 100 mL One or more dose reduction techniques were used (e.g., Automated exposure control, adjustment of the mA and/or kV according to patient size, use of iterative reconstruction technique. RADIATION DOSE SUMMARY: CTDlvol: 24.18 mGy DLP: 1381 mGycm COMPARISON: 09/20/2024. FINDINGS: Unchanged benign chronic calcified 1.8 cm lesion in the anterior mediastinum. Small sliding hiatal hernia. Diffuse thickening of the stomach suggestive of gastritis. Mild hepatic steatosis. CBD stent is noted. Pneumobilia is noted. Unchanged multiple cystic lesions of the pancreatic tail. Scattered right renal simple cysts are noted with the largest measuring 3.5 cm. Uncomplicated colonic diverticulosis. Unremarkable metallic prosthesis of the right hip. Mild diffuse spondylosis. Unchanged mild chronic compression deformity of T11 vertebral body. Decreased diffuse thickening of the gallbladder. The visualized lung bases are unremarkable. Normal extrahepatic biliary system. Normal spleen. Normal bilateral adrenal glands. Normal size of the right kidney. There is no right renal mass. There are no right renal calculi. There is no right hydronephrosis. Normal visualized right ureter. Normal size of the left kidney. There is no left renal mass. There are no left renal calculi. There is no left hydronephrosis. Normal visualized left ureter. Normal small intestine. The appendix is visualized and appears normal. There is no demonstrated peritoneal fluid. Calcified atheromatous plaques of the abdominal aorta. Normal inferior vena cava. Normal retroperitoneum. Normal urinary bladder. There is no pelvic mass lesion or lymphadenopathy. There is no pelvic fluid. Normal abdominal wall. CT/Abdomen/Pelvis W IV Cont ONLY IMPRESSION: Unchanged benign chronic calcified 1.8 cm lesion in the anterior mediastinum. Small sliding hiatal hernia. Diffuse thickening of the stomach suggestive of gastritis. Mild hepatic steatosis. CBD stent is noted. Pneumobilia is noted. Unchanged multiple cystic lesions of the pancreatic tail. Scattered right renal simple cysts are noted with the largest measuring 3.5 cm. Uncomplicated colonic diverticulosis. Unremarkable metallic prosthesis of the right hip. Mild diffuse spondylosis. Unchanged mild chronic compression deformity of T11 vertebral body. Decreased diffuse thickening of the gallbladder. Reading Location: [place] [address] CC: Dr. Manuel Alvarez MD; Dr. 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 Suspected Cholangitis with Lactic Acidosis of 2.3 mmol/L present on admission - Admit to general medical floor. Continue empiric IV piperacillin-tazobactam begun in the ER and await culture and sensitivity data. Serialize lactate. Check MRCP with CT not definitive for acute pathologic changes in biliary tree. Give acetaminophen as needed for [id number] (level 1-5/10) pain or fever. Give morphine IV as needed for severe (level 6-10/10) pain. Finally, we will consult Dr. Sher of gastroenterology to see this patient on rounds in a.m. further recommendations appreciated in advance. 2. Fever, Nausea and Vomiting with bilious emesis likely due to #1 - Give ondansetron IV as needed for nausea vomiting. Give promethazine IM prn for breakthrough nausea. 3. ROSSANA; with elevated serum creatinine of 1.86 mg/dL (up from his baseline of 1.46 mg/dL last admission) in the setting of CKD; stage IIIa complicating #1 & #2 - Volume resuscitate and recheck renal indices daily to follow trend. We will avoid potentially nephrotoxic agents. 4. History of admission here from March 26, 2020 for 2 March 28, 2024 for treatment of nausea, vomiting and abdominal pain with ~6 cm cystic lesion in the pancreatic tail on CT with suspected pancreatitis, transaminitis and hyperbilirubinemia of 4 mg/dL due to cholestatic hepatitis with patient ultimately diagnosed with choledocholithiasis without cholangitis, cholecystitis or obstruction with subsequent biliary stent placement after pancreatic and biliary sphincterotomy with balloon extraction by Dr. Sher of gastroenterology with subsequent ERCP with stent removal on July 04, 2024 with another follow-up ERCP requiring stent replacement ~2 months ago adding to the medical complexity of #1 - #3 - Noted. 5. Morbid (Class III) Obesity; with BMI of 42.9 this admission adding to the burden of disease outlined from #1 - #4 - Weight loss are recommended. Check TSH. This complicates his case and may hamper recovery. 6. History of saddle PE; on apixaban - Hold apixaban with possible impending repeat ERCP. 7. 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 8. Essential hypertension; on metoprolol and lisinopril - Hold oral antihypertensives. Give IV hydralazine prn for systolic blood pressure > 160 mmHg. 9. Hyperlipidemia; on atorvastatin - Restart statin when patient is cleared for oral intake. Check Lipid Profile. 10. Hypothyroidism; on levothyroxine - Restart levothyroxine when patient can tolerate oral intake and check TSH. 11. Neuropathy; on gabapentin - Stable. 12. History of shingles (2023) - Noted with no signs of recurrence at this time. 13. History of inguinal hernia (~2014) - Noted. 14. History of colonic diverticulosis - Noted. 15. Bilateral CTS; s/p release - Noted. 16. OA; s/p Right THR plus sciatica - Stable. We will follow pain regimen scales outlined in #1. 17. DVT/GI prophylaxis - SCD's only with possible impending procedure. Pantoprazole 40 mg IV daily. Total time: Approximately (but not less than) 75 minutes. Charges/Coding Visit Charges Inpatient E&M: 27942 Init Hosp L3
[2024-10-22] MEDS: Piperacil/Tazobactam 3.375 GM in 0.9% Normal Saline (50mL MB+) 50 ML IV ×3 (04:00→23:43)
--- NOTE | 2024-10-22 04:02 | CT_ITS ---
PROCEDURE: ABDOMEN/PELVIS W IV CONT ONLY 10/22/2024 REASON FOR EXAM: FEVER, VOMITING, RECENT BILIARY STENT TECHNIQUE: ABDOMEN/PELVIS W IV CONT ONLY Coronal and Sagittal reconstruction series were provided. CONTRAST: Isovue-350. VOLUME: 100 mL One or more dose reduction techniques were used (e.g., Automated exposure control, adjustment of the mA and/or kV according to patient size, use of iterative reconstruction technique. RADIATION DOSE SUMMARY: CTDlvol: 24.18 mGy DLP: 1381 mGycm COMPARISON: 09/20/2024. FINDINGS: Unchanged benign chronic calcified 1.8 cm lesion in the anterior mediastinum. Small sliding hiatal hernia. Diffuse thickening of the stomach suggestive of gastritis. Mild hepatic steatosis. CBD stent is noted. Pneumobilia is noted. Unchanged multiple cystic lesions of the pancreatic tail. Scattered right renal simple cysts are noted with the largest measuring 3.5 cm. Uncomplicated colonic diverticulosis. Unremarkable metallic prosthesis of the right hip. Mild diffuse spondylosis. Unchanged mild chronic compression deformity of T11 vertebral body. Decreased diffuse thickening of the gallbladder. The visualized lung bases are unremarkable. Normal extrahepatic biliary system. Normal spleen. Normal bilateral adrenal glands. Normal size of the right kidney. There is no right renal mass. There are no right renal calculi. There is no right hydronephrosis. Normal visualized right ureter. Normal size of the left kidney. There is no left renal mass. There are no left renal calculi. There is no left hydronephrosis. Normal visualized left ureter. Normal small intestine. The appendix is visualized and appears normal. There is no demonstrated peritoneal fluid. Calcified atheromatous plaques of the abdominal aorta. Normal inferior vena cava. Normal retroperitoneum. Normal urinary bladder. There is no pelvic mass lesion or lymphadenopathy. There is no pelvic fluid. Normal abdominal wall. CT/Abdomen/Pelvis W IV Cont ONLY IMPRESSION: Unchanged benign chronic calcified 1.8 cm lesion in the anterior mediastinum. Small sliding hiatal hernia. Diffuse thickening of the stomach suggestive of gastritis. Mild hepatic steatosis. CBD stent is noted. Pneumobilia is noted. Unchanged multiple cystic lesions of the pancreatic tail. Scattered right renal simple cysts are noted with the largest measuring 3.5 cm. Uncomplicated colonic diverticulosis. Unremarkable metallic prosthesis of the right hip. Mild diffuse spondylosis. Unchanged mild chronic compression deformity of T11 vertebral body. Decreased diffuse thickening of the gallbladder. Reading [facility]
[2024-10-22 04:44] LABS: Reflex Lactate? Y
--- NOTE | 2024-10-22 04:47 | MRI_ITS ---
PROCEDURE: MRCP ABDOMEN WITHOUT CONTRAST 10/22/2024 REASON FOR EXAM: SUSPECTED CHOLANGITIS. TECHNIQUE: MRCP ABDOMEN WITHOUT CONTRAST Multiplanar and multisequence images were obtained. CONTRAST: None COMPARISON: October 22, 2024 CT FINDINGS: Liver: Unremarkable Biliary: There is a stent present in the common bile duct. Trace amount of air is visible within the gallbladder, secondary to instrumentation. There are no visible stones. There is no wall thickening or pericholecystic inflammation. The common bile duct is not dilated. The pancreatic duct is not dilated. Pancreas: There are multiple simple cysts in the tail of the pancreas with the largest measuring 3.6 x 2.6 cm. There is no significant peripancreatic inflammation Spleen: Unremarkable Adrenals: Unremarkable Kidneys: Right renal cysts are noted with the largest partly visible at the end lower pole measuring 3.2 cm. Peritoneum / Retroperitoneum: There is no free fluid. Lymph Nodes: There is no visible pathologic adenopathy by size criteria. Major Vessels: Unremarkable Bones: Unremarkable MRI/MRCP Abdomen without Contrast IMPRESSION: There is a stent present in the common bile duct. Trace amount of air is visible within the gallbladder, secondary to instrumenta tion. There are multiple simple cysts in the tail of the pancreas with the largest me asuring 3.6 x 2.6 cm. Right renal cysts are noted with the largest partly visible at the end lower po le measuring 3.2 cm. Reading Location: [facility]
[2024-10-22 05:39] LABS: Lactic Acid 1.7 mmol/L (0.0-2.0)
--- OUTSIDE RECORDS SUMMARY | 2024-10-22 05:44 | XMS RPT_ITS | CCD ---
Author Organization [facility] Care Team Providers Care Pin Worker Name Role Phone Bruna Chowdary Unavailable [...] Referring Unavailable Mitchel Walters RN Unavailable Podlogar SENIOR COMMUNICATIONS ENGINEER.VP CUSTOMER SERVICE, Marilia Unavailable Macario Hopkins MD Primary Care [...] Robbie FORD, Dr. Martin Attending Provider [phone] Carin FORD, Dr. Franco Referring Provider Dr. Alex Sher DO Other Provider Ever SENIOR COMMUNICATIONS ENGINEER.Amanda MONTANA Unavailable Carin FORD, Dr. Franco Primary Care Provider Rossy FORD, Dr. Oreilly Attending Provider Rossy FORD, Dr. Oreilly Referring Provider Carin FORD, Dr. Franco Referring Provider [phone] Nikky HILL, Dr. Johnson Attending Provider Friend [...] Unavailab le PODLOGAR, MARILIA Attending Unavailable Ever MORTON.VP CUSTOMER SERVICE, Amanda Unavailable Friend, Alex Attending Unavailable Salvador [...] Admitting Unavailable Bursley, Salvador Primary Care Unavailable nAdrea Serrano Consulting Unavailable Beau Pike Consulting Unavailable [...] amLODIPine (2 sources) amLODIPine Drug Allergy 7 [facility] Macrolides (antibiotic) (2 sources) Azithromycin Drug Allergy 5 Itching [facility] (3 sources) Azithromycin Drug Allergy 4 [facility] (20 sources) amLODIPine; Translations: [AMLODIPINE BESYLATE] Drug Allergy 7 [facility] (20 sources) Azithromycin; Translations: [AZITHROMYCIN] Drug Allergy 5 Itching [facility] Work Phone: (20 sources) Venom-Wasp; Translations: [VENOM-WASP] Propensity to adverse reactions 5 Swelling [facility] Work Phone: (4 sources) bee venom protein (honey bee) Propensity to adverse reactions 5 Swelling [facility] (1 source) Azithromycin Drug Allergy 5 [facility] (1 source) venom-wasp Drug allergy (disorder) 5 [facility] (1 source) bee venom protein (honey bee) Drug allergy (disorder) 5 [facility] Medications Current Medications Medication Drug Class(es) [...] on above: Take 1 capsule by mo [facility] every 8 hours as needed for cough for up to 15 days. CPAP (20 sources) Start: 2 CPAP Indications: MARTIN on CPAP AutoPAP [id number]. Mask per preference, tubing, filters, humidity. Lifetime Supplies. Dx: G47.33. Fax 30 day compliance report to [phone]. 1 Each 999 02/11/2022 Suspended Start: 02-11-2022 CPAP Indicatio ns: MARTIN on CPAP AutoPAP [id number]. Mask per preference, tubing, filters, humidity. Lifetime Supplies. Dx: G47.33. Fax 30 day compliance report to [phone]. 1 Each 999 02/11/2022 Active Start: 02-11-2021 [...] Active Start: 08-10-2016 End: 02-11-2022 CPAP AutoPAP [id number]. Mask per preference, tubing, filters, humidity. Lifetime Supplies. Dx: G47.33. Fax 30 day compliance report to [phone]. 1 Device 0 08/10/2016 02/11/2022 Discontinued Start: 08-10-2016 CPAP AutoPAP 5 -[id number]. Mask per preference, tubing, filters, humidity. Lifetime Supplies. Dx: G47.33. Fax 30 day compliance report to [phone]. 1 Device 0 08/10/2016 Active Comment on above: AutoPAP [id number]. M ask per preference, tubing, filters, humidity. Lifetime Supplies. Dx: G47.33. Fax 30 day compliance report to [phone]. Please provide mask fitting. Pt with subjective and some degree objective leaks. Prefers nasal type mask. Thank you. DME = [employer] AutoPAP [id number]. Mask per preference, tubing, filters, humidity. Lifetime Supplies. Dx: G47.33. Fax 30 day compliance report to [phone]. doxycycline hyclate 100 mg oral tablet (5 [...] / neomycin 3.5 mg/ml / polymyxin b 06847 unt/ml otic suspension (1 source) Aminoglycoside Antibacterial, Polymyxin-class Antibacterial, Corticosteroid Start: 11-11-2021 End: 11-18-2021 gbbhxmvn-bnxeidquh-cq drocortisone (CORTISPORIN) 3.5-10,000-1 mg/mL-unit/mL-% otic suspension Use [...] 140 g 1 12/19/2023 Active Start: 01-04-2019 940308 Medicat ion ammonium lactate 12 % lotion [...] 12:00am March 26, 2024 9:48am Start: 02-14-2014 349292 Medicat ion levothyroxine 200 mcg tablet Synthroid 200 mcg 02/14/2014 Active (Outside) Comment on above: Take 1 tablet by lazaro th once daily. TAKE 1 TABLET BY MOUTH ONCE DAILY. TAKE ON EMPTY STOMACH. 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 [...] (3 sources) Nucleoside Metabolic Inhibitor Start: 01-04-2019 906899 Medication fluorouracil 5 % topical cream fluorouracil [...] Coronary arteriosclerosis; Translations: [Atherosclerotic heart disease of [place] coronary artery without angina pectoris] Onset: 7 [...] sources) Long-term current use of anticoagulant; Translations: [director long term care (current) use of anticoagulants] 12-19-2023 Episodic Other [...] Onset: 04-01-2024 Episodic Other aftercare (1 source) USP (current) use of anticoagulants; Translations: [USP (current) use of anticoagulants] Onset: 04-08-2024 Episodic [...] Test Name Value Interpretation Reference Range Facility [facility] 10-08-2024 CN Office Visit (FAMPWS ) -- FRAN PAREKH ([id number]) 1945 M Date Time Provider Department 10/08/24 9:40 AM MARILIA OROZCO During your visit today, we recorded the following information about you: Pulse Respiration Blood pressure Weight 58/minute 18/minute 118/76 132.9 kg Marilia Orozco APRN.VP CUSTOMER SERVICE 10/08/2024 9:54 AM Signed 10/08/2024 Patient presents with: Pain: Left wrist pain, fell about a month ago and caught himself with his hands. Recording using [employer] software for draft documentation of the visit was discussed with the patient/authorized physician representative; all questions welcomed and answered. Patient/authorized physician representative agreed to proceed SUBJECTIVE: This is [...] of skin of nose Dr. Chowdary in [place] Stage 3a chronic kidney disease (HCC) Venous [...] by mouth daily at bedtime. CPAP AutoPAP [id number]. Mask per preference, tubing, filters, humidity. Lifetime Supplies. Dx: G47.33. Fax 30 day compliance report to [phone]. CPAP Please provide mask fitting. Pt with [...] No deform (more content not included)... Normal [facility] No Panel Informationon 10-08 IMPRESSION: 1. No radiographic evidence of acute osseous injury. 2. Multifocal osteoarthritis as described. Storage Worker: PSCB Transcribe Date/Time: Oct 08 2024 11:26A Dictated by : FAUSTINO STOCKTON MD This examination was interpreted and the report reviewed and electronically signed by: FAUSTINO STOCKTON MD on Oct 08 2024 11:29AM [facility] DIVISION OF RADIOLOGY Radiology Study observation (narrative) [facility] No Panel InformationOrdered By: Ccf Provider on 10-08-2024 [facility] SerPl-aCncon 10-08-2024 TSH Qn 2.310 m[IU]/L Normal 0.270-4.200 [facility] Comment on above: Order Comment: Speci men Type: BLOOD SPECIMENOrdering Facility: [facility] Address: [address] [place] [address] Performed By: #### 3 016-3 ####[facility] LABCLIA [id number] [address] OF [place] XR HAND 3V PA/LAT/OBL [...] osseous injury. 2. Multifocal osteoarthritis as described. Storage Worker: WILNER Transcribe Date/Time: Oct 08 2024 11:26A Dictated by : FAUSTINO STOCKTON MD This examination was interpreted and the report reviewed and electronically signed by: FAUSTINO STOCKTON MD on Oct 08 2024 11:29AM EST [id number] Normal [facility] XR Hand - left PA and [...] fourth proximal phalanx. DIVISION OF RADIOLOGY Provider, [facility] - 10/08/2024 * * *Final Report* [...] osseous injury. 2. Multifocal osteoarthritis as described. Storage Worker: WILNER Transcribe Date/Time: Oct 08 2024 11:26A Dictated by : FAUSTINO STOCKTON MD This examination was interpreted and the report reviewed and electronically signed by: FAUSTINO STOCKTON MD on Oct 08 2024 11:29AM EST [facility] XR WRIST 3V PA/LAT/OBL LTon 10-08-2024 XR [...] osseous injury. 2. Multifocal osteoarthritis as described. Storage Worker: WILNER Transcribe Date/Time: Oct 08 2024 11:26A Dictated by : FAUSTINO STOCKTON MD This examination was interpreted and the report reviewed and electronically signed by: FAUSTINO STOCKTON MD on Oct 08 2024 11:29AM EST [id number] Normal [facility] XR Wrist - left PA and [...] fourth proximal phalanx. DIVISION OF RADIOLOGY Provider, [facility] - 10/08/2024 * * *Final Report* [...] osseous injury. 2. Multifocal osteoarthritis as described. Storage Worker: WILNER Transcribe Date/Time: Oct 08 2024 11:26A Dictated by : FAUSTINO STOCKTON MD This examination was interpreted and the report reviewed and electronically signed by: FAUSTINO STOCKTON MD on Oct 08 2024 11:29AM EST [facility] ERCP Biliary/Pancreason 06-0 -2024 ERCP Biliary/Pancreas Normal [facility] ERCP Reporton 10-07-2024 ERCP Report Normal [facility] MR/POSTOP.ANEon 10-07-2024 MR/POSTOP.ANE Normal [facility] MR/XKTEAITY1yp 10-07-2024 MR/POSTOPAN2 Normal [facility] O.R. Fluoro for C-Dylon 06-0 O.R. Fluoro for C-Arm Normal [facility] Surgery Specimen Level Marcela 10-07-2024 Surgery Specimen Level IV Normal [facility] Comment on above: Performed By: #### P SUIV ####[facility] [address] [place], [place], [address] [facility] 09-17-2024 [facility] Telephone ([employer]) -- FRAN PAREKH ([id number]) 1945 M Date Time Provider Department 09/17/24 AGNES DIAZ [facility] During your visit today, we recorded the following information about you: Agustín Monroy, CHAD 09/17/2024 11:34 AM Signed Jeny with [facility] calls to request a copy of patient's most recent HGBA1C. Faxed results from 08/15/2024 to [phone] per request. CHAD English Stephanie, RN 09/17/2024 11:43 AM Signed Jeny with [facility] calls to request a copy of patient's most recent office visit notes. Faxed results from 08/15/2024 to [phone] per request. Carli Bowen RN Allergies As [...] mouth daily at bedtime. - CPAP AutoPAP [id number]. Mask per preference, tubing, filters, humidity. Lifetime Supplies. Dx: G47.33. Fax 30 day compliance report to [phone]. - CPAP Please provide mask fitting. Pt [...] 03/25/2009 Open fracture of distal phalangeal tuft [[id number]*08/31/2011 05/09/2014 Internal derangement of right knee [M23.91] [...] Status:Closed by AGUSTÍN MONROY on 09/17/24 Normal [facility] L/S Spine Min 4 Viewson 08-30 L/S Spine Min 4 Views Normal [facility] Orthopedic Visit Reporton Orthopedic Visit Report Normal [facility] Abdomen/Pelvis W IV Cont ONL Yon 08-31-2024 Abdomen/Pelvis W IV Cont ONLY Normal [facility] Absolute lymphocyte countOrd ered By: Isaias Trivedi on 08-31-2024 Lymphocytes Auto (Unsp spec) [#/Vol] 2.13 10*3/uL 0.83-4.51 [facility] Absolute neutrophil countOrd ered By: Isaias Trivedi on 08-31-2024 Neutrophils (Bld) [#/Vol] 9.2 10*3/uL High 2.0-7.7 [facility] Anion gap in Serum or Plasma Ordered By: Isaias Trivedi on 08-31-2024 Anion gap [Moles/Vol] 12 mmol/L 5-15 [facility] Automated lymphocyte count a s percentage of total leukocytesOrdered By: Isaias Trivedi on 08-31-2024 Lymphocytes/100 WBC Auto (Unsp spec) 17.0 % Low 19-41 [facility] BUN/creatinine ratioOrdered By: Isaias Trivedi on 08-31-2024 Urea nitrogen/Creatinine [Mass ratio] 14.0 mg/mg 10-20 [facility] Basophil percentageOrdered B y: Isaias Trivedi on 08-31-2024 Basophils/100 WBC (Bld) 0.5 % 0-1 [facility] Bilirubin Test strip Ql (U)O rdered By: Isaias Trivedi on 08-31-2024 Bilirubin Ql (U) Negative Negative [facility] Bilirubin, totalOrdered By: Isaias Trivedi on 08-31-2024 Bilirubin [Mass/Vol] 0.80 mg/dL 0.00-1.30 [facility] CBC W/Diff, Automatedon Absolute Lymph 2.13 X10 3/uL Normal 0.83-4.51 [facility] Comment on above: Performed By: #### L 500.4050, L100.0100 ####[facility] [address] [place], [address] Absolute Neut 9.2 X10 3/uL High 2.0-7.7 [facility] Comment on above: Performed By: #### L 500.4050, L100.0100 ####[facility] [address] [place], [address] Basophils/100 WBC (Bld) 0.5 % Normal 0-1 [facility] Comment on above: Performed By: #### L 500.4050, L100.0100 ####[facility] [address] [place], [address] Eosinophils/100 WBC (Bld) 1.3 % Normal 0-5 [facility] Comment on above: Performed By: #### L 500.4050, L100.0100 ####[facility] [address] [place], [address] Erythrocyte distribution width (RBC) [Ratio] 13.3 % Normal 11.6-14.6 [facility] Comment on above: Performed By: #### L 500.4050, L100.0100 ####[facility] [address] [place], [address] Hematocrit (Bld) [Volume fraction] 46.1 % Normal 40-54 [facility] Comment on above: Performed By: #### L 500.4050, L100.0100 ####[facility] [address] [place], [address] Hemoglobin (Bld) [Mass/Vol] 15.9 g/dL Normal 13.0-16.5 [facility] Comment on above: Performed By: #### L 500.4050, L100.0100 ####[facility] [address] [place], [address] IG% 0.400 Normal 0.0-0.9 [facility] Comment on above: Result Comment: IG% - Immature Granulocytes (promyelocytes, myelocytes andmetamyelocytes) > 1% indicates that a LEFT SHIFT is Present. Performed By: #### L 500.4050, L100.0100 ####[facility] [address] [place], [address] Lymphocytes/100 WBC (Bld) 17.0 % Low 19-41 [facility] Comment on above: Performed By: #### L 500.4050, L100.0100 ####[facility] [address] [place], [address] MCH (RBC) [Entitic mass] 32.1 pg High 27.0-32.0 [facility] Comment on above: Performed By: #### L 500.4050, L100.0100 ####[facility] [address] [place], [address] MCHC (RBC) [Mass/Vol] 34.5 g/dL Normal 32-36 [facility] Comment on above: Performed By: #### L 500.4050, L100.0100 ####[facility] [address] [place], [address] MCV (RBC) [Entitic vol] 92.9 fL Normal 80-94 [facility] Comment on above: Performed By: #### L 500.4050, L100.0100 ####[facility] [address] [place], [address] Monocytes/100 WBC (Bld) 7.5 % Normal 0-10 [facility] Comment on above: Performed By: #### L 500.4050, L100.0100 ####[facility] [address] [place], [address] Neutrophils/100 WBC (Bld) 73.3 % High 47-70 [facility] Comment on above: Performed By: #### L 500.4050, L100.0100 ####[facility] [address] [place], [address] Nucleated RBC (Bld) [#/Vol] 0 10*3/uL Normal 0-5 [facility] Comment on above: Performed By: #### L 500.4050, L100.0100 ####[facility] [address] [place], [address] Platelet mean volume (Bld) [Entitic vol] 9.5 fL Normal 6.2-12.0 [facility] Comment on above: Performed By: #### L 500.4050, L100.0100 ####[facility] [address] [place], [address] Platelets (Bld) [#/Vol] 225 10*3/uL Normal 150-450 [facility] Comment on above: Performed By: #### L 500.4050, L100.0100 ####[facility] [address] [place], [address] RBC (Bld) [#/Vol] 4.96 10*6/uL Normal 4.6-6.2 [facility] Comment on above: Performed By: #### L 500.4050, L100.0100 ####[facility] [address] [place], [address] RDW SD 45.3 fl High 35.1-43.9 [facility] Comment on above: Performed By: #### L 500.4050, L100.0100 ####[facility] [address] [place], [address] WBC (Bld) [#/Vol] 12.6 10*3/uL High 4.4-11.0 [facility] Comment on above: Performed By: #### L 500.4050, L100.0100 ####[facility] [address] [place], [address] CNOVon 08-31-2024 CNOV Office Visit (UCTR ) -- FRAN PAREKH ([id number]) 1945 M Date Time Provider Department 08/31/24 11:00 AM COLE ALMANZA [facility] During your visit today, we recorded the following information about you: Cole Almanza MD 08/31/2024 11:11 AM Signed [facility] Care Triage Note: Patient presents to the [facility] care with complaint of abdominal pain for the last day. He is also experiencing current sciatic pain and taking [place]. He has been unable to take pain medicine today because of upset stomach and wants to avoid further aggravating abdominal pain. He is concerned he may have constipation but also has history of diverticulitis. He is in apparent discomfort in the waiting room. He was offered the opportunity to have initial evaluation here in the [facility] with likely referral where imaging is [...] mouth daily at bedtime. - CPAP AutoPAP [id number]. Mask per preference, tubing, filters, humidity. Lifetime Supplies. Dx: G47.33. Fax 30 day compliance report to [phone]. - CPAP Please provide mask fitting. Pt [...] 03/25/2009 Open fracture of distal phalangeal tuft [[id number]*08/31/2011 05/09/2014 Internal derangement of right knee [M23.91] [...] vei*10/23/2023 Acute (more content not included)... Normal [facility] Carbon dioxide, total [Moles /volume] in Central venous bloodOrdered By: Isaias Trivedi on 08-31-2024 CO2 [Moles/Vol] 23.3 mmol/L 21.0-32.0 [facility] Chloride assayOrdered By: Alexis Trivedi on 08-31-2024 Chloride [Moles/Vol] 104 mmol/L 98-108 [facility] Comprehensive Metabolic Prof ilon 08-31-2024 Albumin [Mass/Vol] 4.0 g/dL Normal 3.4-4.8 [facility] Comment on above: Performed By: #### L 500.4050, L100.0100 ####[facility] [address] [place], [place], [id number] Albumin/Globulin [Mass ratio] 1.3 {ratio} Normal 0.9-2.4 [facility] Comment on above: Performed By: #### L 500.4050, L100.0100 ####[facility] [address] [place], [address] ALK PHOS 86 U/L Normal 40-129 [facility] Comment on above: Performed By: #### L 500.4050, L100.0100 ####[facility] [address] [place], [address] ALT [Catalytic activity/Vol] 20 U/L Normal <=46 [facility] Comment on above: Performed By: #### L 500.4050, L100.0100 ####[facility] [address] [place], [address] AST [Catalytic activity/Vol] 31 U/L Normal <=37 [facility] Comment on above: Result Comment: Hemo lysis present, Results??could be affected.?? Performed By: #### L 500.4050, L100.0100 ####[facility] [address] [place], [address] Bilirubin [Mass/Vol] 0.80 mg/dL Normal 0.00-1.30 [facility] Comment on above: Performed By: #### L 500.4050, L100.0100 ####[facility] [address] [place], [address] BUN/CRE 14.0 RATIO Normal 10-20 [facility] Comment on above: Performed By: #### L 500.4050, L100.0100 ####[facility] [address] [place], [address] Calcium [Mass/Vol] 9.5 mg/dL Normal 7.6-11.0 [facility] Comment on above: Performed By: #### L 500.4050, L100.0100 ####[facility] [address] [place], [address] Chloride [Moles/Vol] 104 mmol/L Normal 98-108 [facility] Comment on above: Performed By: #### L 500.4050, L100.0100 ####[facility] [address] [place], [address] CO2 [Moles/Vol] 23.3 mmol/L Normal 21.0-32.0 [facility] Comment on above: Performed By: #### L 500.4050, L100.0100 ####[facility] [address] [place], [address] Creatinine [Mass/Vol] 1.46 mg/dL High 0.70-1.20 [facility] Comment on above: Performed By: #### L 500.4050, L100.0100 ####[facility] [address] [place], [address] ECRCL 57.03 ml/min Normal 50-250 [facility] Comment on above: Performed By: #### L 500.4050, L100.0100 ####[facility] [address] [place], [address] GAP 12 Normal 5-15 [facility] Comment on above: Performed By: #### L 500.4050, L100.0100 ####[facility] [address] [place], [address] GFR/1.73 sq M.predicted among non-blacks MDRD (S/P/Bld) [Vol rate/Area] 49 mL/min/{1.73_m2} Low >60 [facility] Comment on above: Result Comment: mL/m in/1.73m2 CKD-EPI Creatinine Equation (2020) Performed By: #### L 500.4050, L100.0100 ####[facility] [address] [place], [address] Globulin (S) [Mass/Vol] 3.2 g/dL Normal 2.2-4.2 [facility] Comment on above: Performed By: #### L 500.4050, L100.0100 ####[facility] [address] [place], [address] Glucose [Mass/Vol] 135 mg/dL High 70-99 [facility] Comment on above: Performed By: #### L 500.4050, L100.0100 ####[facility] [address] [place], [address] Potassium [Moles/Vol] 5.0 mmol/L Normal 3.3-5.1 [facility] Comment on above: Result Comment: Hemo lysis present, Results??could be affected.?? Performed By: #### L 500.4050, L100.0100 ####[facility] [address] [place], [address] Sodium [Moles/Vol] 139 mmol/L Normal 133-145 [facility] Comment on above: Performed By: #### L 500.4050, L100.0100 ####[facility] [address] [place], [address] T PROT 7.2 g/dL Normal 5.9-8.4 [facility] Comment on above: Performed By: #### L 500.4050, L100.0100 ####[facility] [address] [place], [address] Urea nitrogen [Mass/Vol] 21 mg/dL High 4-19 [facility] Comment on above: Performed By: #### L 500.4050, L100.0100 ####[facility] [address] [place], [address] Emergency Department Summary on 08-31-2024 Emergency Department Summary Normal [facility] Eosinophil percentageOrdered By: Isaias Trivedi on 08-31-2024 Eosinophils/100 WBC (Bld) 1.3 % 0-5 [facility] Erythrocyte distribution wid th ratioOrdered By: Isaias Trivedi on 08-31-2024 Erythrocyte distribution width (RBC) [Ratio] 13.3 % 11.6-14.6 [facility] Erythrocyte distribution wid th standard deviationOrdered By: Isaias Trivedi on 08-31-2024 Erythrocyte distribution width (RBC) [Ratio] 45.3 fl High 35.1-43.9 [facility] Glomerular filtration rate ( GFR) estimation/1.73 sq m using serum, plasma, or whole bOrdered By: Isaias Trivedi on 08-31-2024 GFR/1.73 sq M.predicted among non-blacks MDRD (S/P/Bld) [Vol rate/Area] 49 mL/min/{1.73_m2} Low >60 [facility] Comment on above: mL/min/1.73m2 CKD-EP I Creatinine Equation (2020) Hematocrit Auto (Bld) [Volum e fraction]Ordered By: Isaias Trivedi on 08-31-2024 Hematocrit (Bld) [Volume fraction] 46.1 % 40-54 [facility] Hemoglobin measurementOrdere d By: Isaias Trivedi on 08-31-2024 Hemoglobin (Bld) [Mass/Vol] 15.9 g/dL 13.0-16.5 [facility] Immature granulocytes/100 WB C Auto (Bld)Ordered By: Isaias Trivedi on 08-31-2024 Immature granulocytes/100 WBC (Bld) 0.400 % 0.0-0.9 [facility] Comment on above: IG% - Immature Granu locytes (promyelocytes, myelocytes and metamyelocytes) > 1% indicates that a LEFT SHIFT is Present. Ketones Test strip Ql (U)Ord ered By: Isaias Trivedi on 08-31-2024 Ketones Ql (U) Negative Negative [facility] Laboratory - Chemistry and C hemistry - challengeOrdered By: Isaias Trivedi on 08-31-2024 AST [Catalytic activity/Vol] 31 U/L <38 [facility] Comment on above: Hemolysis present, R esults could be affected. MCV (mean corpuscular volume ) determinationOrdered By: Isaias Trivedi on 08-31-2024 MCV (RBC) [Entitic vol] 92.9 fL 80-94 [facility] Mean corpuscular hemoglobin (MCH) determinationOrdered By: Isaias Trivedi on 08-31-2024 MCH (RBC) [Entitic mass] 32.1 pg High 27.0-32.0 [facility] Mean corpuscular hemoglobin concentration (MCHC) determinationOrdered By: Isaias Trivedi on 08-31-2024 MCHC (RBC) [Mass/Vol] 34.5 g/dL 32-36 [facility] Mean platelet volume determi nationOrdered By: Isaias Trivedi on 08-31-2024 Platelet mean volume (Bld) [Entitic vol] 9.5 fL 6.2-12.0 [facility] Microscopic analysis of urin e for red blood cells (RBC)Ordered By: Isaias Trivedi on 08-31-2024 Microscopic analysis of urine for red blood cells (RBC) 0-5 SEEN /hpf 0-5 [facility] Monocyte percentageOrdered B y: Isaias Trivedi on 08-31-2024 Monocytes/100 WBC (Bld) 7.5 % 0-10 [facility] Mucus LM Ql (Urine sed)Order ed By: Isaias Trivedi on 08-31-2024 Mucus Ql (Urine sed) 0 SEEN /hpf [facility] Neutrophil percentageOrdered By: Isaias Trivedi on 08-31-2024 Neutrophils/100 WBC (Bld) 73.3 % High 47-70 [facility] Nitrite Test strip Ql (U)Ord ered By: Isaias Trivedi on 08-31-2024 Nitrite Ql (U) Negative Negative [facility] Nucleated red blood cell per centageOrdered By: Isaias Trivedi on 08-31-2024 Nucleated RBC/100 WBC (Bld) [Ratio] 0 % 0-5 [facility] Platelet countOrdered By: Alexis Trivedi on 08-31-2024 Platelets (Bld) [#/Vol] 225 10*3/uL 150-450 [facility] Potassium measurement (mass/ volume)Ordered By: Isaias Trivedi on 08-31-2024 Potassium (Unsp spec) [Mass/Vol] 5.0 mmol/L 3.3-5.1 [facility] Comment on above: Hemolysis present, R esults could be affected. Protein Test strip Ql (U)Ord ered By: Isaias Trivedi on 08-31-2024 Protein Ql (U) 30 mg/dl High Negative [facility] RBC Auto (Bld) [#/Vol]Ordere d By: Isaias Trivedi on 08-31-2024 RBC (Bld) [#/Vol] 4.96 10*6/uL 4.6-6.2 [facility] Serum creatinine measurement (mass/volume)Ordered By: Isaias Trivedi on 08-31-2024 Creatinine [Mass/Vol] 1.46 mg/dL High 0.70-1.20 [facility] Serum globulin measurementOr dered By: Isaias Trivedi on 08-31-2024 Globulin (S) [Mass/Vol] 3.2 g/dL 2.2-4.2 [facility] Serum glucose measurement (m ass/volume)Ordered By: Isaias Trievdi on 08-31-2024 Glucose [Mass/Vol] 135 mg/dL High 70-99 [facility] Serum or plasma alanine wilde otransferase (ALT) measurementOrdered By: Isaias Trivedi on 08-31-2024 ALT [Catalytic activity/Vol] 20 U/L <47 [facility] Serum or plasma albumin anson urement (mass/volume)Ordered By: Isaias Trivedi on 08-31-2024 Albumin [Mass/Vol] 4.0 g/dL 3.4-4.8 [facility] Serum or plasma albumin/glob ulin mass ratioOrdered By: Isaias Trivedi on 08-31-2024 Albumin/Globulin [Mass ratio] 1.3 {ratio} 0.9-2.4 [facility] Serum or plasma alkaline rui sphatase measurementOrdered By: Isaias Trivedi on 08-31-2024 ALP [Catalytic activity/Vol] 86 U/L 40-129 [facility] Serum or plasma calcium anson urement (mass/volume)Ordered By: Isaias Trivedi on 08-31-2024 Calcium [Mass/Vol] 9.5 mg/dL 7.6-11.0 [facility] Serum or plasma urea nitroge n measurement (mass/volume)Ordered By: Isaias Trivedi on 08-31-2024 Urea nitrogen [Mass/Vol] 21 mg/dL High 4-19 [facility] Sodium levelOrdered By: Isaias Trivedi on 08-31-2024 Sodium [Moles/Vol] 139 mmol/L 133-145 [facility] Squamous epithelial cells de tection in urine sediment by light microscopyOrdered By: Isaias Trivedi on 08-31-2024 Epithelial cells.squamous LM Ql (Urine sed) 0 SEEN /hpf 0-5 [facility] Total proteinOrdered By: Marianne Trivedi on 08-31-2024 Protein [Mass/Vol] 7.2 g/dL 5.9-8.4 [facility] Urinalysis, Completeon 08-31 RBC 0-5 SEEN Normal 0-5 [facility] Comment on above: Order Comment: KATHERINE CTOR TO SPECIFY Performed By: #### L 400.0001 ####[facility] [address] [place], [address] WBC 0-5 SEEN Normal 0-5 [facility] Comment on above: Order Comment: KATHERINE CTOR TO SPECIFY Performed By: #### L 400.0001 ####[facility] [address] [place], [address] BACTERIA 0 SEEN Normal None Seen [facility] Comment on above: Order Comment: KATHERINE CTOR TO SPECIFY Performed By: #### L 400.0001 ####[facility] [address] [place], [address] EPI,SQUAMOUS 0 SEEN Normal 0-5 [facility] Comment on above: Order Comment: KATHERINE CTOR TO SPECIFY Performed By: #### L 400.0001 ####[facility] [address] [place], [address] Mucus Ql (Urine sed) 0 SEEN Normal [facility] Comment on above: Order Comment: KATHERINE CTOR TO SPECIFY Performed By: #### L 400.0001 ####[facility] [address] [place], [address] Urine clarityOrdered By: Marianne Trivedi on 08-31-2024 Clarity (U) Clear Clear [facility] Urine color determinationOrd ered By: Isaias Trivedi on 08-31-2024 Color (U) Yellow Yellow [facility] Urine glucose detectionOrder ed By: Isaias Trivedi on 08-31-2024 Glucose Ql (U) Normal mg/dl Normal [facility] Urine leukocyte esterase det ection by dipstickOrdered By: Isaias Trivedi on 08-31-2024 Leukocyte esterase Test strip Ql (U) Negative Negative [facility] Urine pHOrdered By: Isaias hinton on 08-31-2024 pH (U) 6.5 [pH] 5.0 - 8.0 [facility] Urine sediment bacteria coun t by microscopy (number/high power field)Ordered By: Isaias Trivedi on 08-31-2024 Bacteria LM.HPF (Urine sed) [#/Area] 0 /[HPF] None Seen [facility] Urine specific gravity measu rementOrdered By: Isaias Trivedi on 08-31-2024 Specific gravity (U) [Rel density] 1.010 1.002-1.030 [facility] Urine urobilinogen measureme ntOrdered By: Isaias Trivedi on 08-31-2024 Urobilinogen Ql (U) Normal mg/dl Normal [facility] White blood cell (WBC) count Ordered By: Isaias Trivedi on 08-31-2024 WBC (Bld) [#/Vol] 12.6 10*3/uL High 4.4-11.0 [facility] White blood cell countOrdere d By: Isaias Trivedi on 08-31-2024 White blood cell count 0-5 SEEN /hpf 0-5 [facility] CNPNon 08-27-2024 [facility] FRAN PAREKH ([id number]) 1945 M Date Time Provider Department 08/27/24 [facility] During your visit today, we recorded the following information about you: Sissy Campbell LPN 08/27/2024 12:00 PM Signed Received form from [facility] regarding upcoming procedure [...] mouth daily at bedtime. - CPAP AutoPAP [id number]. Mask per preference, tubing, filters, humidity. [employer]. Dx: G47.33. Fax 30 day compliance report to [phone]. - CPAP Please provide mask fitting. Pt [...] 03/25/2009 Open fracture of distal phalangeal tuft [[id number]*08/31/2011 05/09/2014 Internal derangement of right knee [M23.91] [...] CAMPBELL on (more content not included)... Normal [facility] Comprehensive metabolic 2000 panelon 08-15-2024 Albumin [Mass/Vol] 3.9 g/dL Normal 3.9-4.9 [facility] Comment on above: Order Comment: Speci men Type: BLOOD SPECIMENOrdering Facility: [facility] Address: [address] [place] [address] Performed By: #### 2 4323-8, 3016-3, 27399-0 ####[facility] LABCLIA [id number] [address] [address] [place] ALP [Catalytic activity/Vol] 85 U/L Normal 38-113 [facility] Comment on above: Order Comment: Speci men Type: BLOOD SPECIMENOrdering Facility: [facility] Address: [address] [place] [address] Performed By: #### 2 4323-8, 3016-3, 11118-9 ####[facility] LABCLIA [id number] [place] [id number] [place] ALT [Catalytic activity/Vol] 22 U/L Normal 10-54 [facility] Comment on above: Order Comment: Speci men Type: BLOOD SPECIMENOrdering Facility: [facility] Address: [address] [place] [address] Performed By: #### 2 4323-8, 6-3, 57585-3 ####[facility] LABCLIA [id number] [place] [address] [place] Anion gap [Moles/Vol] 13 mmol/L Normal 8-15 [facility] Comment on above: Order Comment: Speci men Type: BLOOD SPECIMENOrdering Facility: [facility] Address: [address] [place] [address] Performed By: #### 2 4323-8, 6-3, 62596-2 ####[facility] LABCLIA [id number] [place] [address] [place] AST [Catalytic activity/Vol] 25 U/L Normal 14-40 [facility] Comment on above: Order Comment: Speci men Type: BLOOD SPECIMENOrdering Facility: [facility] Address: [address] [place], [place] [address] Performed By: #### 2 4323-8, 6-3, 62246-9 ####[facility] LABCLIA [id number] [address] [address] [place] Bilirubin [Mass/Vol] 0.5 mg/dL Normal 0.2-1.3 [facility] Comment on above: Order Comment: Speci men Type: BLOOD SPECIMENOrdering Facility: [facility] Address: [address] [place], [place] [address] Performed By: #### 2 4323-8, 3016-3, 01953-0 ####[facility] LABCLIA [id number] [address] [address] [place] Calcium [Mass/Vol] 9.1 mg/dL Normal 8.5-10.2 [facility] Comment on above: Order Comment: Speci men Type: BLOOD SPECIMENOrdering Facility: [facility] Address: [address] [place] [address] Performed By: #### 2 4323-8, 3015-3, 28338-1 ####[facility] LABCLIA [id number] [address] [address] [place] Chloride [Moles/Vol] 104 mmol/L Normal 98-107 [facility] Comment on above: Order Comment: Speci men Type: BLOOD SPECIMENOrdering Facility: [facility] Address: [address] [place] [address] Performed By: #### 2 4323-8, 3015-3, 11204-5 ####[facility] LABCLIA [id number] [address] [address] [place] CO2 [Moles/Vol] 22 mmol/L Normal 22-30 [facility] Comment on above: Order Comment: Speci men Type: BLOOD SPECIMENOrdering Facility: [facility] Address: [address] [place], [place] [address] Performed By: #### 2 4323-8, 6-3, 37275-9 ####[facility] LABCLIA [id number] [address] [address] [place] Creatinine [Mass/Vol] 1.40 mg/dL High 0.73-1.22 [facility] Comment on above: Order Comment: Tiffanie rollins Type: BLOOD SPECIMENOrdering Facility: [facility] Address: [address] [place] [address] Performed By: #### 2 4323-8, 3016-3, 49235-9 ####[facility] LABCLIA [id number] [place] [address] [place] Creatinine and Glomerular filtration rate.predicted panel (S/P/Bld) 51 mL/min/1.73m??? Low >=60 [facility] Comment on above: Order Comment: Tiffanie rollins Type: BLOOD SPECIMENOrdering Facility: [facility] Address: [address] [place] [address] Result Comment: Danika mated Glomerular Filtration Rate [...] GFR. Performed By: #### 2 4323-8, 3016-3, 43945-6 ####[facility] LABCLIA [id number] [place] [address] [place] Glucose [Mass/Vol] 123 mg/dL High 74-99 [facility] Comment on above: Order Comment: Tiffanie rollins Type: BLOOD SPECIMENOrdering Facility: [facility] Address: [address] [place] [address] Result Comment: The [place] Diabetes Association (ADA) provides guidance for cutoff [...] Standards of Medical Care in Diabetes 2016, [place] [employer] Association. Diabetes Care. 2016.39(Suppl 1). Performed By: #### 2 4323-8, 6-3, 11587-4 ####[facility] LABCLIA [id number] [address] [address] [place] Potassium [Moles/Vol] 4.4 mmol/L Normal 3.7-5.1 [facility] Comment on above: Order Comment: Speci men Type: BLOOD SPECIMENOrdering Facility: [facility] Address: [address] [place] [address] Performed By: #### 2 4323-8, 3015-3, 71289-1 ####[facility] LABCLIA [id number] [address] [address] [place] Protein [Mass/Vol] 6.9 g/dL Normal 6.3-8.0 [facility] Comment on above: Order Comment: Speci men Type: BLOOD SPECIMENOrdering Facility: [facility] Address: [address] [place] [address] Performed By: #### 2 4323-8, 3, 52136-6 ####[facility] LABCLIA [id number] [address] [address] [place] Sodium [Moles/Vol] 139 mmol/L Normal 136-144 [facility] Comment on above: Order Comment: Speci men Type: BLOOD SPECIMENOrdering Facility: [facility] Address: [address] [place] [address] Performed By: #### 2 4323-8, 3, 46605-0 ####[facility] LABCLIA [id number] [address] [address] [place] Urea nitrogen [Mass/Vol] 19 mg/dL Normal 9-24 [facility] Comment on above: Order Comment: Speci men Type: BLOOD SPECIMENOrdering Facility: [facility] Address: [address] [place] [address] Performed By: #### 2 4323-8, 3016-3, 55843-5 ####[facility] LABIA [id number] [address] [place] HbA1c (Bld)on 08-15-2024 Average glucose Estimated from glycated hemoglobin (Bld) [Mass/Vol] 126 mg/dL Normal [facility] Comment on above: Order Comment: Speci men Type: BLOOD SPECIMENOrdering Facility: [facility] Address: [address] [place] [address] Result Comment: eAG: (Estimated average glucose) is a calculated value from HgbA1c and is physician representative of the average blood glucose level in the last 2-3 month period. Performed By: #### 5 5454-3 ####[facility] LABIA [id number] [address] [place] HbA1c (Bld) [Mass fraction] 6.0 % High 4.3-5.6 [facility] Comment on above: Order Comment: Tiffanie rollins Type: BLOOD SPECIMENOrdering Facility: [facility] Address: [address] [place] [address] Result Comment: Amer [place] Diabetes Association guidelines indicate that patients with HgbA1c in the range 5.7-6.4% are at increased risk for development of diabetes, and intervention by lifestyle modification may be beneficial. HgbA1c greater or equal to 6.5% is considered diagnostic of diabetes. Performed By: #### 5 5454-3 ####[facility] LABIA [id number] [address] [address] [place] Lipid 1996 panelon 5 Cholesterol [Mass/Vol] 138 mg/dL Normal <200 [facility] Comment on above: Order Comment: Tiffanie men Type: BLOOD SPECIMENOrdering Facility: [facility] Address: [address] [place] [address] Result Comment: <200 mg/dL, Desirable 200-239 mg/dL, Borderline high >239 mg/dL, High Performed By: #### 2 4323-8, 6-3, 09455-3 ####[facility] LABCLIA [id number] [facility] [id number] [place] [address] [place] Cholesterol in HDL [Mass/Vol] 31 mg/dL Low >39 [facility] Comment on above: Order Comment: Speci men Type: BLOOD SPECIMENOrdering Facility: [facility] Address: [address] [place] [address] Result Comment: 40-5 9 mg/dL, Acceptable >59 mg/dL, High: Negative risk factor for coronary heart disease <40 mg/dL, Low: Positive risk factor for coronary heart disease Performed By: #### 2 4323-8, 6-3, 77927-5 ####[facility] LABCLIA [id number] [address] [place] [address] [facility] Cholesterol in LDL [Mass/Vol] 59 mg/dL Normal <100 [facility] Comment on above: Order Comment: Ruthi men Type: BLOOD SPECIMENOrdering Facility: [facility] Address: [address] [place] [address] Result Comment: <100 mg/dL, Optimal 100-129 mg/dL, Near optimal/above optimal 130-159 mg/dL, Borderline high 160-189 mg/dL, High >189 mg/dL, Very high Secondary prevention optimal LDL Cholesterol levels are recommended to be < 70 mg/dL Performed By: #### 2 4323-8, 3015-3, 61191-6 ####[facility] LABCLIA [id number] [facility] [address] [place] [address] [facility] Cholesterol in LDL/Cholesterol in HDL [Mass ratio] 1.90 {ratio} Normal <2.54 [facility] Comment on above: Order Comment: Speci men Type: BLOOD SPECIMENOrdering Facility: [facility] Address: [address] [place] [address] Result Comment: Refe rence: 1. National Cholesterol Education Program ATP III Guideline At-A-Glance Quick Desk Reference: National Heart, Lung, and Blood Tillar. National Institutes of Health. 2001: NIH Publication No. 01-3305. 2. An International Atherosclerosis Society position paper: global recommendations for the management of dyslipidemia: executive summary, Atherosclerosis. 2014: 232(2):410-413. Performed By: #### 2 4323-8, 6-3, 76611-3 ####[facility] LABCLIA [id number] [address] [address] [place] Cholesterol in VLDL [Mass/Vol] 48 mg/dL High <30 [facility] Comment on above: Order Comment: Speci men Type: BLOOD SPECIMENOrdering Facility: [facility] Address: [address] [place] [address] Performed By: #### 2 4323-8, 3, 28209-1 ####[facility] LABCLIA [id number] [place] [id number] [place] Cholesterol non HDL [Mass/Vol] 107 mg/dL Normal <130 [facility] Comment on above: Order Comment: Speci men Type: BLOOD SPECIMENOrdering Facility: [facility] Address: [address] [place] [address] Result Comment: <130 mg/dL, Optimal 130-159 mg/dL, Near optimal/above optimal 160-189 mg/dL, Borderline high 190-219 mg/dL, High >219 mg/dL, Very high Secondary prevention optimal non HDL Cholesterol levels are recommended to be <100 mg/dL Performed By: #### 2 4323-8, 3015-3, 72567-8 ####[facility] LABCLIA [id number] [address] [address] [place] Cholesterol.total/Chol esterol in HDL [Mass ratio] 4.45 {ratio} Normal <5.10 [facility] Comment on above: Order Comment: Speci men Type: BLOOD SPECIMENOrdering Facility: [facility] Address: [address] [place] [address] Performed By: #### 2 4323-8, 3015-3, 13851-4 ####[facility] LABCLIA [id number] [address], [facility] [place] FASTING TIME 12 hrs Normal [facility] Comment on above: Order Comment: Speci men Type: BLOOD SPECIMENOrdering Facility: [facility] Address: [address] [place] [address] Performed By: #### 2 4323-8, 3016-3, 62915-5 ####[facility] LABIA [id number] [address], [place] [address] [place] Triglyceride [Mass/Vol] 242 mg/dL High <150 [facility] Comment on above: Order Comment: Speci men Type: BLOOD SPECIMENOrdering Facility: [facility] Address: [address] [place] [address] Result Comment: <150 mg/dL, Normal 150-199 mg/dL, Borderline high 200-499 mg/dL, High >499 mg/dL, Very high Performed By: #### 2 4323-8, 3016-3, 20677-9 ####[facility] LABIA [id number] [address], [place] [address] [place] TSH SerPl-aCncon 08-15-2024 TSH Qn 7.390 m[IU]/L High 0.270-4.200 [facility] Comment on above: Order Comment: Speci men Type: BLOOD SPECIMENOrdering Facility: [facility] Address: [address] [place] [address] Performed By: #### 2 4323-8, 3016-3, 16758-5 ####[facility] LABIA [id number] [address], [facility] [place] CNOVon 08-13-2024 CNOV Office Visit ([facility] ) -- IGLESIAFRAN ([id number]) 1945 M Date Time Provider Department 08/13/24 11:40 AM MARILIA OROZCO During your visit today, we recorded the following information about you: Pulse Respiration Blood pressure Weight 65/minute 18/minute 118/82 133.7 kg Height 1.766 m Marilia Orozco APRN.VP [employer] 08/13/2024 12:17 PM Signed 08/12/2024 Patient presents [...] gi upset: Yes 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 Sher, sales promoter, for hx of choledocholithiasis. Recent ERCP on [...] of skin of nose Dr. Chowdary in [place] Stage 3a chronic kidney disease (HCC) Venous [...] not taking: Reported on 12/19/2023) CPAP AutoPAP [id number]. Mask per preference, tubing, filters, humidity. [employer]. Dx: G47.33. Fax 30 day compliance report to [phone]. CPAP Please provide mask fitting. Pt with [...] signs review (more content not included)... Normal [facility] Gastroenterology Visit Repor ton 07-23-2024 Gastroenterology Visit Report Normal [facility] ERCP Biliary/Pancreason ERCP Biliary/Pancreas Normal [facility] ERCP Reporton 07-04-2024 ERCP Report Normal [facility] Immunohistochemical Stainson 07-04-2024 Immunohistochemical Stains [facility] Comment on above: Performed By: #### P IMHI ####[facility] [address] [place], [address] MR/POSTOP.ANEon 07-04-2024 MR/POSTOP.ANE [facility] MR/[id number] 07-04-2024 MR/POSTOPAN2 [facility] Special Stain Group IIon Special Stain Group II [facility] Comment on above: Performed By: #### P SSII ####[facility] [address] [place], [address] MR/PAT.ANEon 07-02-2024 MR/PAT.DEVI [facility] CNPRaine 06-24-2024 [facility] Telephone ([facility]) -- MARINOFRAN KAY ([id number]) 1945 M Date Time Provider Department 06/24/24 VICTOR MANUEL SAVAGE During your visit today, we recorded the following information about you: Home Dumas PSS 06/24/2024 2:18 PM Addendum Called patient to reschedule 10/22/[address] Savage, 1st attempt, left . Please offer virtual appointment at [place] [address] or [facility]. Hoem Dumas PSS 06/28/2024 11:06 AM Signed Patient [...] hour before dental procedure. - CPAP AutoPAP [id number]. Mask per preference, tubing, filters, humidity. [employer]. Dx: G47.33. Fax 30 day compliance report to [phone]. - CPAP Please provide mask fitting. Pt [...] 03/25/2009 Open fracture of distal phalangeal tuft [PFJ561*08/31/2011 05/09/2014 Internal derangement of right knee [M23.91] [...] Status:Closed by HOME DUMAS on 06/28/24 Normal [facility] Gastroenterology Visit Repor ton 04-16-2024 Gastroenterology Visit Report Normal [facility] Basic Metabolic Profile (BMP )on 04-04-2024 BUN Normal 7-18 [facility] Comment on above: Result Comment: Canc elled via OM: Order cancelled - Patient discharged Performed By: #### L 100.0100, L500.2500 ####[facility] [address] [place], [address] BUN/CRE Normal 10-20 [facility] Comment on above: Result Comment: Canc elled via OM: Order cancelled - Patient discharged Performed By: #### L 100.0100, L500.2500 ####[facility] [address] [place], [address] CA,Total Normal 8.5-10.1 [facility] Comment on above: Result Comment: Canc elled via OM: Order cancelled - Patient discharged Performed By: #### L 100.0100, L500.2500 ####[facility] [address] [place], [address] CL Normal 98-107 [facility] Comment on above: Result Comment: Canc elled via OM: Order cancelled - Patient discharged Performed By: #### L 100.0100, L500.2500 ####[facility] [address] [place], [address] CO2 Normal 21.0-32.0 [facility] Comment on above: Result Comment: Canc elled via OM: Order cancelled - Patient discharged Performed By: #### L 100.0100, L500.2500 ####[facility] [address] [place], [address] CREAT,SERUM Normal 0.70-1.30 [facility] Comment on above: Result Comment: Canc elled via OM: Order cancelled - Patient discharged Performed By: #### L 100.0100, L500.2500 ####[facility] [address] [place], [address] EST GFR Normal >60 [facility] Comment on above: Result Comment: Canc elled via OM: Order cancelled - Patient discharged Performed By: #### L 100.0100, L500.2500 ####[facility] [address] [place], [address] EST GFR - AA Normal >60 [facility] Comment on above: Result Comment: Canc elled via OM: Order cancelled - Patient discharged Performed By: #### L 100.0100, L500.2500 ####[facility] [address] [place], [address] GAP Normal 5-15 [facility] Comment on above: Result Comment: Canc elled via OM: Order cancelled - Patient discharged Performed By: #### L 100.0100, L500.2500 ####[facility] [address] [place], [address] GLU Normal 74-106 [facility] Comment on above: Result Comment: Canc elled via OM: Order cancelled - Patient discharged Performed By: #### L 100.0100, L500.2500 ####[facility] [address] [place], [address] Potassium Normal 3.5-5.1 [facility] Comment on above: Result Comment: Canc elled via OM: Order cancelled - Patient discharged Performed By: #### L 100.0100, L500.2500 ####[facility] [address] [place], [address] Basic Metabolic Profile (BMP) Normal 136-145 [facility] Comment on above: Result Comment: Canc elled via OM: Order cancelled - Patient discharged Performed By: #### L 100.0100, L500.2500 ####[facility] [address] [place], [address] CBC W/Diff, Automatedon 12-0 Absolute Neut Normal 2.0-7.7 [facility] Comment on above: Result Comment: Canc elled via OM: Order cancelled - Patient discharged Performed By: #### L 100.0100, L500.2500 ####[facility] [address] [place], [address] HCT Normal 40-54 [facility] Comment on above: Result Comment: Canc elled via OM: Order cancelled - Patient discharged Performed By: #### L 100.0100, L500.2500 ####[facility] [address] [place], [address] HGB Normal 13.0-16.5 [facility] Comment on above: Result Comment: Canc elled via OM: Order cancelled - Patient discharged Performed By: #### L 100.0100, L500.2500 ####[facility] [address] [place], [address] MCH Normal 27.0-32.0 [facility] Comment on above: Result Comment: Canc elled via OM: Order cancelled - Patient discharged Performed By: #### L 100.0100, L500.2500 ####[facility] [address] [place], [address] MCHC Normal 32-36 [facility] Comment on above: Result Comment: Canc elled via OM: Order cancelled - Patient discharged Performed By: #### L 100.0100, L500.2500 ####[facility] [address] [place], [address] MCV Normal 80-94 [facility] Comment on above: Result Comment: Canc elled via OM: Order cancelled - Patient discharged Performed By: #### L 100.0100, L500.2500 ####[facility] [address] [place], [address] NEUT% Normal 47-70 [facility] Comment on above: Result Comment: Canc elled via OM: Order cancelled - Patient discharged Performed By: #### L 100.0100, L500.2500 ####[facility] [address] [place], [address] PLT Normal 150-450 [facility] Comment on above: Result Comment: Canc elled via OM: Order cancelled - Patient discharged Performed By: #### L 100.0100, L500.2500 ####[facility] [address] [place], [address] RBC Normal 4.6-6.2 [facility] Comment on above: Result Comment: Canc elled via OM: Order cancelled - Patient discharged Performed By: #### L 100.0100, L500.2500 ####[facility] [address] [place], [address] RDW CV Normal 11.6-14.6 [facility] Comment on above: Result Comment: Canc elled via OM: Order cancelled - Patient discharged Performed By: #### L 100.0100, L500.2500 ####[facility] [address] [place], [address] RDW SD Normal 35.1-43.9 [facility] Comment on above: Result Comment: Canc elled via OM: Order cancelled - Patient discharged Performed By: #### L 100.0100, L500.2500 ####[facility] [address] [place], [address] WBC Normal 4.4-11.0 [facility] Comment on above: Result Comment: Canc elled via OM: Order cancelled - Patient discharged Performed By: #### L 100.0100, L500.2500 ####[facility] [address] [place], [address] Basic Metabolic Profile (BMP )on 04-03-2024 BUN Normal 7-18 [facility] Comment on above: Result Comment: Canc elled via OM: Order cancelled - Patient discharged Performed By: #### L 100.0100, L500.2500 ####[facility] [address] [place], [address] BUN/CRE Normal 10-20 [facility] Comment on above: Result Comment: Canc elled via OM: Order cancelled - Patient discharged Performed By: #### L 100.0100, L500.2500 ####[facility] [address] [place], [address] CA,Total Normal 8.5-10.1 [facility] Comment on above: Result Comment: Canc elled via OM: Order cancelled - Patient discharged Performed By: #### L 100.0100, L500.2500 ####[facility] [address] [place], [address] CL Normal 98-107 [facility] Comment on above: Result Comment: Canc elled via OM: Order cancelled - Patient discharged Performed By: #### L 100.0100, L500.2500 ####[facility] [address] [place], [address] CO2 Normal 21.0-32.0 [facility] Comment on above: Result Comment: Canc elled via OM: Order cancelled - Patient discharged Performed By: #### L 100.0100, L500.2500 ####[facility] [address] [place], [address] CREAT,SERUM Normal 0.70-1.30 [facility] Comment on above: Result Comment: Canc elled via OM: Order cancelled - Patient discharged Performed By: #### L 100.0100, L500.2500 ####[facility] [address] [place], [address] EST GFR Normal >60 [facility] Comment on above: Result Comment: Canc elled via OM: Order cancelled - Patient discharged Performed By: #### L 100.0100, L500.2500 ####[facility] [address] [place], [address] EST GFR - AA Normal >60 [facility] Comment on above: Result Comment: Canc elled via OM: Order cancelled - Patient discharged Performed By: #### L 100.0100, L500.2500 ####[facility] [address] [place], [address] GAP Normal 5-15 [facility] Comment on above: Result Comment: Canc elled via OM: Order cancelled - Patient discharged Performed By: #### L 100.0100, L500.2500 ####[facility] [address] [place], [address] GLU Normal 74-106 [facility] Comment on above: Result Comment: Canc elled via OM: Order cancelled - Patient discharged Performed By: #### L 100.0100, L500.2500 ####[facility] [address] [place], [address] Potassium Normal 3.5-5.1 [facility] Comment on above: Result Comment: Canc elled via OM: Order cancelled - Patient discharged Performed By: #### L 100.0100, L500.2500 ####[facility] [address] [place], [address] Basic Metabolic Profile (BMP) Normal 136-145 [facility] Comment on above: Result Comment: Canc elled via OM: Order cancelled - Patient discharged Performed By: #### L 100.0100, L500.2500 ####[facility] [address] [place], [address] CBC W/Diff, Automatedon 12-0 Absolute Neut Normal 2.0-7.7 [facility] Comment on above: Result Comment: Canc elled via OM: Order cancelled - Patient discharged Performed By: #### L 100.0100, L500.2500 ####[facility] [address] [place], [address] HCT Normal 40-54 [facility] Comment on above: Result Comment: Canc elled via OM: Order cancelled - Patient discharged Performed By: #### L 100.0100, L500.2500 ####[facility] [address] [place], [address] HGB Normal 13.0-16.5 [facility] Comment on above: Result Comment: Canc elled via OM: Order cancelled - Patient discharged Performed By: #### L 100.0100, L500.2500 ####[facility] [address] [place], [address] MCH Normal 27.0-32.0 [facility] Comment on above: Result Comment: Canc elled via OM: Order cancelled - Patient discharged Performed By: #### L 100.0100, L500.2500 ####[facility] [address] [place], [address] MCHC Normal 32-36 [facility] Comment on above: Result Comment: Canc elled via OM: Order cancelled - Patient discharged Performed By: #### L 100.0100, L500.2500 ####[facility] [address] [place], [address] MCV Normal 80-94 [facility] Comment on above: Result Comment: Canc elled via OM: Order cancelled - Patient discharged Performed By: #### L 100.0100, L500.2500 ####[facility] [address] [place], [address] NEUT% Normal 47-70 [facility] Comment on above: Result Comment: Canc elled via OM: Order cancelled - Patient discharged Performed By: #### L 100.0100, L500.2500 ####[facility] [address] [place], [address] PLT Normal 150-450 [facility] Comment on above: Result Comment: Canc elled via OM: Order cancelled - Patient discharged Performed By: #### L 100.0100, L500.2500 ####[facility] [address] [place], [address] RBC Normal 4.6-6.2 [facility] Comment on above: Result Comment: Canc elled via OM: Order cancelled - Patient discharged Performed By: #### L 100.0100, L500.2500 ####[facility] [address] [place], [address] RDW CV Normal 11.6-14.6 [facility] Comment on above: Result Comment: Canc elled via OM: Order cancelled - Patient discharged Performed By: #### L 100.0100, L500.2500 ####[facility] [address] [place], [address] RDW SD Normal 35.1-43.9 [facility] Comment on above: Result Comment: Canc elled via OM: Order cancelled - Patient discharged Performed By: #### L 100.0100, L500.2500 ####[facility] [address] [place], [address] WBC Normal 4.4-11.0 [facility] Comment on above: Result Comment: Canc elled via OM: Order cancelled - Patient discharged Performed By: #### L 100.0100, L500.2500 ####[facility] [address] [place], [address] Basic Metabolic Profile (BMP )on 04-02-2024 BUN Normal 7-18 [facility] Comment on above: Result Comment: Canc elled via OM: Order cancelled - Patient discharged Performed By: #### L 100.0100, L500.2500 ####[facility] [address] [place], [address] BUN/CRE Normal 10-20 [facility] Comment on above: Result Comment: Canc elled via OM: Order cancelled - Patient discharged Performed By: #### L 100.0100, L500.2500 ####[facility] [address] [place], [address] CA,Total Normal 8.5-10.1 [facility] Comment on above: Result Comment: Canc elled via OM: Order cancelled - Patient discharged Performed By: #### L 100.0100, L500.2500 ####[facility] [address] [place], [address] CL Normal 98-107 [facility] Comment on above: Result Comment: Canc elled via OM: Order cancelled - Patient discharged Performed By: #### L 100.0100, L500.2500 ####[facility] [address] [place], [address] CO2 Normal 21.0-32.0 [facility] Comment on above: Result Comment: Canc elled via OM: Order cancelled - Patient discharged Performed By: #### L 100.0100, L500.2500 ####[facility] [address] [place], [address] CREAT,SERUM Normal 0.70-1.30 [facility] Comment on above: Result Comment: Canc elled via OM: Order cancelled - Patient discharged Performed By: #### L 100.0100, L500.2500 ####[facility] [address] [place], [address] EST GFR Normal >60 [facility] Comment on above: Result Comment: Canc elled via OM: Order cancelled - Patient discharged Performed By: #### L 100.0100, L500.2500 ####[facility] [address] [place], [address] EST GFR - AA Normal >60 [facility] Comment on above: Result Comment: Canc elled via OM: Order cancelled - Patient discharged Performed By: #### L 100.0100, L500.2500 ####[facility] [address] [place], [address] GAP Normal 5-15 [facility] Comment on above: Result Comment: Canc elled via OM: Order cancelled - Patient discharged Performed By: #### L 100.0100, L500.2500 ####[facility] [address] [place], [address] GLU Normal 74-106 [facility] Comment on above: Result Comment: Canc elled via OM: Order cancelled - Patient discharged Performed By: #### L 100.0100, L500.2500 ####[facility] [address] [place], [address] Potassium Normal 3.5-5.1 [facility] Comment on above: Result Comment: Canc elled via OM: Order cancelled - Patient discharged Performed By: #### L 100.0100, L500.2500 ####[facility] [address] [place], [address] Basic Metabolic Profile (BMP) Normal 136-145 [facility] Comment on above: Result Comment: Canc elled via OM: Order cancelled - Patient discharged Performed By: #### L 100.0100, L500.2500 ####[facility] [address] [place], [address] CBC W/Diff, Automatedon 12-0 -2023 Absolute Neut Normal 2.0-7.7 [facility] Comment on above: Result Comment: Canc elled via OM: Order cancelled - Patient discharged Performed By: #### L 100.0100, L500.2500 ####[facility] [address] [place], [address] HCT Normal 40-54 [facility] Comment on above: Result Comment: Canc elled via OM: Order cancelled - Patient discharged Performed By: #### L 100.0100, L500.2500 ####[facility] [address] [place], [address] HGB Normal 13.0-16.5 [facility] Comment on above: Result Comment: Canc elled via OM: Order cancelled - Patient discharged Performed By: #### L 100.0100, L500.2500 ####[facility] [address] [place], [address] MCH Normal 27.0-32.0 [facility] Comment on above: Result Comment: Canc elled via OM: Order cancelled - Patient discharged Performed By: #### L 100.0100, L500.2500 ####[facility] [address] [place], [address] MCHC Normal 32-36 [facility] Comment on above: Result Comment: Canc elled via OM: Order cancelled - Patient discharged Performed By: #### L 100.0100, L500.2500 ####[facility] [address] [place], [address] MCV Normal 80-94 [facility] Comment on above: Result Comment: Canc elled via OM: Order cancelled - Patient discharged Performed By: #### L 100.0100, L500.2500 ####[facility] [address] [place], [address] NEUT% Normal 47-70 [facility] Comment on above: Result Comment: Canc elled via OM: Order cancelled - Patient discharged Performed By: #### L 100.0100, L500.2500 ####[facility] [address] [place], [address] PLT Normal 150-450 [facility] Comment on above: Result Comment: Canc elled via OM: Order cancelled - Patient discharged Performed By: #### L 100.0100, L500.2500 ####[facility] [address] [place], [address] RBC Normal 4.6-6.2 [facility] Comment on above: Result Comment: Canc elled via OM: Order cancelled - Patient discharged Performed By: #### L 100.0100, L500.2500 ####[facility] [address] [place], [address] RDW CV Normal 11.6-14.6 [facility] Comment on above: Result Comment: Canc elled via OM: Order cancelled - Patient discharged Performed By: #### L 100.0100, L500.2500 ####[facility] [address] [place], [address] RDW SD Normal 35.1-43.9 [facility] Comment on above: Result Comment: Canc elled via OM: Order cancelled - Patient discharged Performed By: #### L 100.0100, L500.2500 ####[facility] [address] [place], [address] WBC Normal 4.4-11.0 [facility] Comment on above: Result Comment: Canc elled via OM: Order cancelled - Patient discharged Performed By: #### L 100.0100, L500.2500 ####[facility] [address] [place], [address] Basic Metabolic Profile (BMP )on 04-01-2024 BUN Normal 7-18 [facility] Comment on above: Result Comment: Canc elled via OM: Order cancelled - Patient discharged Performed By: #### L 500.2500, L100.0100 ####[facility] [address] [place], [address] BUN/CRE Normal 10-20 [facility] Comment on above: Result Comment: Canc elled via OM: Order cancelled - Patient discharged Performed By: #### L 500.2500, L100.0100 ####[facility] [address] [place], [address] CA,Total Normal 8.5-10.1 [facility] Comment on above: Result Comment: Canc elled via OM: Order cancelled - Patient discharged Performed By: #### L 500.2500, L100.0100 ####[facility] [address] [place], [address] CL Normal 98-107 [facility] Comment on above: Result Comment: Canc elled via OM: Order cancelled - Patient discharged Performed By: #### L 500.2500, L100.0100 ####[facility] [address] [place], [address] CO2 Normal 21.0-32.0 [facility] Comment on above: Result Comment: Canc elled via OM: Order cancelled - Patient discharged Performed By: #### L 500.2500, L100.0100 ####[facility] [address] [place], [address] CREAT,SERUM Normal 0.70-1.30 [facility] Comment on above: Result Comment: Canc elled via OM: Order cancelled - Patient discharged Performed By: #### L 500.2500, L100.0100 ####[facility] [address] [place], [address] EST GFR Normal >60 [facility] Comment on above: Result Comment: Canc elled via OM: Order cancelled - Patient discharged Performed By: #### L 500.2500, L100.0100 ####[facility] [address] [place], [address] EST GFR - AA Normal >60 [facility] Comment on above: Result Comment: Canc elled via OM: Order cancelled - Patient discharged Performed By: #### L 500.2500, L100.0100 ####[facility] [address] [place], [address] GAP Normal 5-15 [facility] Comment on above: Result Comment: Canc elled via OM: Order cancelled - Patient discharged Performed By: #### L 500.2500, L100.0100 ####[facility] [address] [place], [address] GLU Normal 74-106 [facility] Comment on above: Result Comment: Canc elled via OM: Order cancelled - Patient discharged Performed By: #### L 500.2500, L100.0100 ####[facility] [address] [place], [address] Potassium Normal 3.5-5.1 [facility] Comment on above: Result Comment: Canc elled via OM: Order cancelled - Patient discharged Performed By: #### L 500.2500, L100.0100 ####[facility] [address] [place], [address] Basic Metabolic Profile (BMP) Normal 136-145 [facility] Comment on above: Result Comment: Canc elled via OM: Order cancelled - Patient discharged Performed By: #### L 500.2500, L100.0100 ####[facility] [address] [place], [address] CBC W/Diff, Automatedon 12-0 2-2023 Absolute Neut Normal 2.0-7.7 [facility] Comment on above: Result Comment: Canc elled via OM: Order cancelled - Patient discharged Performed By: #### L 500.2500, L100.0100 ####[facility] [address] [place], [address] HCT Normal 40-54 [facility] Comment on above: Result Comment: Canc elled via OM: Order cancelled - Patient discharged Performed By: #### L 500.2500, L100.0100 ####[facility] [address] [place], [address] HGB Normal 13.0-16.5 [facility] Comment on above: Result Comment: Canc elled via OM: Order cancelled - Patient discharged Performed By: #### L 500.2500, L100.0100 ####[facility] [address] [place], [address] MCH Normal 27.0-32.0 [facility] Comment on above: Result Comment: Canc elled via OM: Order cancelled - Patient discharged Performed By: #### L 500.2500, L100.0100 ####[facility] [address] [place], [address] MCHC Normal 32-36 [facility] Comment on above: Result Comment: Canc elled via OM: Order cancelled - Patient discharged Performed By: #### L 500.2500, L100.0100 ####[facility] [address] [place], [address] MCV Normal 80-94 [facility] Comment on above: Result Comment: Canc elled via OM: Order cancelled - Patient discharged Performed By: #### L 500.2500, L100.0100 ####[facility] [address] [place], [address] NEUT% Normal 47-70 [facility] Comment on above: Result Comment: Canc elled via OM: Order cancelled - Patient discharged Performed By: #### L 500.2500, L100.0100 ####[facility] [address] [place], [address] PLT Normal 150-450 [facility] Comment on above: Result Comment: Canc elled via OM: Order cancelled - Patient discharged Performed By: #### L 500.2500, L100.0100 ####[facility] [address] [place], [address] RBC Normal 4.6-6.2 [facility] Comment on above: Result Comment: Canc elled via OM: Order cancelled - Patient discharged Performed By: #### L 500.2500, L100.0100 ####[facility] [address] [place], [address] RDW CV Normal 11.6-14.6 [facility] Comment on above: Result Comment: Canc elled via OM: Order cancelled - Patient discharged Performed By: #### L 500.2500, L100.0100 ####[facility] [address] [place], [address] RDW SD Normal 35.1-43.9 [facility] Comment on above: Result Comment: Canc elled via OM: Order cancelled - Patient discharged Performed By: #### L 500.2500, L100.0100 ####[facility] [address] [place], [address] WBC Normal 4.4-11.0 [facility] Comment on above: Result Comment: Canc elled via OM: Order cancelled - Patient discharged Performed By: #### L 500.2500, L100.0100 ####[facility] [address] [place], [address] CNOVon 04-01-2024 CNOV Office Visit ([facility] ) -- FRAN PAREKH ([id number]) 1945 M Date Time Provider Department 04/01/24 12:00 PM MARILIA OROZCO During your visit today, we recorded the following information about you: Temperature Pulse Respiration Blood pressure 97.9 degrees 59/minute 18/minute 138/82 Weight 128.6 kg Marilia Orozco APRN.CNP 04/01/2024 2:48 PM Signed 04/01/2024 Patient presents with: Hospital F/U: [facility] 03/26-03/28 for pancreatitis SUBJECTIVE: This is a 78 year old that is here today for Above Complaints. HOSPITAL/ER FOLLOW UP: Reason for visit: abdominal pain, nausea, vomiting and dizziness Which facility: [facility] Date of visit: 03/26/2024-03/28/2024 Diagnosis: choledocholithiasis Testing [...] Readmission Risk Score: n/a Patient's zip code: [address] Is zip code within program service area: No Patient meets program referral criteria: No Patient does not qualify for High Risk TCM Home Visit program due to: Patient's zip code is not located within program service area Readmission Risk Score does not meet criteria Disposition: Patient does not qualify for HRTIC, will provide TCM outreach follow-up for 30-days Patient Source: Gdg-wf-Krnidsi (OON) Discharge Outreach Summary: Pt reports he is feeling well, caught up on sleep last night. States eating and drinking OK . No additional episodes of nausea, vomiting or abdominal pain , fevers, chills since dc. Started Omnicef as rx. Pt reports LVM for f/u with Dr. Nikky DSOUZA and has f/u with PCP office 04/01 Patient discharged from [facility] Discharge date: 03/28/24 Admitted for: Abdominal pain Readmission Risk: n/a Value-Based Contract: ACO Contact: Contact made with patient: Yes Hi, my name is Mitchel Walters RN and I am calling from the [facility] on behalf of your Primary Care Provider, [...] like to speak with a social work sales team leader to help give you support for any [...] I will send your request to a supervisor painting shipyard who will contact and assist you with that appointment. This will give you an opportunity to ask any questions or address any concerns you may have with your PCP. Inform the patient that if they have any questions or concerns prior to that appointment, t (more content not included)... Normal [facility] Basic Metabolic Profile (BMP )on 03-31-2024 BUN Normal 7-18 [facility] Comment on above: Result Comment: Canc elled via OM: Order cancelled - Patient discharged Performed By: #### L 100.0100, L500.2500 ####[facility] [address] [place], [address] BUN/CRE Normal 10-20 [facility] Comment on above: Result Comment: Canc elled via OM: Order cancelled - Patient discharged Performed By: #### L 100.0100, L500.2500 ####[facility] [address] [place], [address] CA,Total Normal 8.5-10.1 [facility] Comment on above: Result Comment: Canc elled via OM: Order cancelled - Patient discharged Performed By: #### L 100.0100, L500.2500 ####[facility] [address] [place], [address] CL Normal 98-107 [facility] Comment on above: Result Comment: Canc elled via OM: Order cancelled - Patient discharged Performed By: #### L 100.0100, L500.2500 ####[facility] [address] [place], [address] CO2 Normal 21.0-32.0 [facility] Comment on above: Result Comment: Canc elled via OM: Order cancelled - Patient discharged Performed By: #### L 100.0100, L500.2500 ####[facility] [address] [place], [address] CREAT,SERUM Normal 0.70-1.30 [facility] Comment on above: Result Comment: Canc elled via OM: Order cancelled - Patient discharged Performed By: #### L 100.0100, L500.2500 ####[facility] [address] [place], [address] EST GFR Normal >60 [facility] Comment on above: Result Comment: Canc elled via OM: Order cancelled - Patient discharged Performed By: #### L 100.0100, L500.2500 ####[facility] [address] [place], [address] EST GFR - AA Normal >60 [facility] Comment on above: Result Comment: Canc elled via OM: Order cancelled - Patient discharged Performed By: #### L 100.0100, L500.2500 ####[facility] [address] [place], [address] GAP Normal 5-15 [facility] Comment on above: Result Comment: Canc elled via OM: Order cancelled - Patient discharged Performed By: #### L 100.0100, L500.2500 ####[facility] [address] [place], [address] GLU Normal 74-106 [facility] Comment on above: Result Comment: Canc elled via OM: Order cancelled - Patient discharged Performed By: #### L 100.0100, L500.2500 ####[facility] [address] [place], [address] Potassium Normal 3.5-5.1 [facility] Comment on above: Result Comment: Canc elled via OM: Order cancelled - Patient discharged Performed By: #### L 100.0100, L500.2500 ####[facility] [address] [place], [address] Basic Metabolic Profile (BMP) Normal 136-145 [facility] Comment on above: Result Comment: Canc elled via OM: Order cancelled - Patient discharged Performed By: #### L 100.0100, L500.2500 ####[facility] [address] [place], [address] CBC W/Diff, Automatedon 12-0 Absolute Neut Normal 2.0-7.7 [facility] Comment on above: Result Comment: Canc elled via OM: Order cancelled - Patient discharged Performed By: #### L 100.0100, L500.2500 ####[facility] [address] [place], [address] HCT Normal 40-54 [facility] Comment on above: Result Comment: Canc elled via OM: Order cancelled - Patient discharged Performed By: #### L 100.0100, L500.2500 ####[facility] [address] [place], [address] HGB Normal 13.0-16.5 [facility] Comment on above: Result Comment: Canc elled via OM: Order cancelled - Patient discharged Performed By: #### L 100.0100, L500.2500 ####[facility] [address] [place], [address] MCH Normal 27.0-32.0 [facility] Comment on above: Result Comment: Canc elled via OM: Order cancelled - Patient discharged Performed By: #### L 100.0100, L500.2500 ####[facility] [address] [place], [address] MCHC Normal 32-36 [facility] Comment on above: Result Comment: Canc elled via OM: Order cancelled - Patient discharged Performed By: #### L 100.0100, L500.2500 ####[facility] [address] [place], [address] MCV Normal 80-94 [facility] Comment on above: Result Comment: Canc elled via OM: Order cancelled - Patient discharged Performed By: #### L 100.0100, L500.2500 ####[facility] [address] [place], [address] NEUT% Normal 47-70 [facility] Comment on above: Result Comment: Canc elled via OM: Order cancelled - Patient discharged Performed By: #### L 100.0100, L500.2500 ####[facility] [address] [place], [address] PLT Normal 150-450 [facility] Comment on above: Result Comment: Canc elled via OM: Order cancelled - Patient discharged Performed By: #### L 100.0100, L500.2500 ####[facility] [address] [place], [address] RBC Normal 4.6-6.2 [facility] Comment on above: Result Comment: Canc elled via OM: Order cancelled - Patient discharged Performed By: #### L 100.0100, L500.2500 ####[facility] [address] [place], [address] RDW CV Normal 11.6-14.6 [facility] Comment on above: Result Comment: Canc elled via OM: Order cancelled - Patient discharged Performed By: #### L 100.0100, L500.2500 ####[facility] [address] [place], [address] RDW SD Normal 35.1-43.9 [facility] Comment on above: Result Comment: Canc elled via OM: Order cancelled - Patient discharged Performed By: #### L 100.0100, L500.2500 ####[facility] [address] [place], [address] WBC Normal 4.4-11.0 [facility] Comment on above: Result Comment: Canc elled via OM: Order cancelled - Patient discharged Performed By: #### L 100.0100, L500.2500 ####[facility] [address] [place], [address] Basic Metabolic Profile (BMP )on 03-30-2024 BUN Normal 7-18 [facility] Comment on above: Result Comment: Canc elled via OM: Order cancelled - Patient discharged Performed By: #### L 500.2500, L100.0100 ####[facility] [address] [place], [address] BUN/CRE Normal 10-20 [facility] Comment on above: Result Comment: Canc elled via OM: Order cancelled - Patient discharged Performed By: #### L 500.2500, L100.0100 ####[facility] [address] [place], [address] CA,Total Normal 8.5-10.1 [facility] Comment on above: Result Comment: Canc elled via OM: Order cancelled - Patient discharged Performed By: #### L 500.2500, L100.0100 ####[facility] [address] [place], [address] CL Normal 98-107 [facility] Comment on above: Result Comment: Canc elled via OM: Order cancelled - Patient discharged Performed By: #### L 500.2500, L100.0100 ####[facility] [address] [place], [address] CO2 Normal 21.0-32.0 [facility] Comment on above: Result Comment: Canc elled via OM: Order cancelled - Patient discharged Performed By: #### L 500.2500, L100.0100 ####[facility] [address] [place], [address] CREAT,SERUM Normal 0.70-1.30 [facility] Comment on above: Result Comment: Canc elled via OM: Order cancelled - Patient discharged Performed By: #### L 500.2500, L100.0100 ####[facility] [address] [place], [address] EST GFR Normal >60 [facility] Comment on above: Result Comment: Canc elled via OM: Order cancelled - Patient discharged Performed By: #### L 500.2500, L100.0100 ####[facility] [address] [place], [address] EST GFR - AA Normal >60 [facility] Comment on above: Result Comment: Canc elled via OM: Order cancelled - Patient discharged Performed By: #### L 500.2500, L100.0100 ####[facility] [address] [place], [address] GAP Normal 5-15 [facility] Comment on above: Result Comment: Canc elled via OM: Order cancelled - Patient discharged Performed By: #### L 500.2500, L100.0100 ####[facility] [address] [place], [address] GLU Normal 74-106 [facility] Comment on above: Result Comment: Canc elled via OM: Order cancelled - Patient discharged Performed By: #### L 500.2500, L100.0100 ####[facility] [address] [place], [address] Potassium Normal 3.5-5.1 [facility] Comment on above: Result Comment: Canc elled via OM: Order cancelled - Patient discharged Performed By: #### L 500.2500, L100.0100 ####[facility] [address] [place], [address] Basic Metabolic Profile (BMP) Normal 136-145 [facility] Comment on above: Result Comment: Canc elled via OM: Order cancelled - Patient discharged Performed By: #### L 500.2500, L100.0100 ####[facility] [address] [place], [address] CBC W/Diff, Automatedon 11-3 0-2023 Absolute Neut Normal 2.0-7.7 [facility] Comment on above: Result Comment: Canc elled via OM: Order cancelled - Patient discharged Performed By: #### L 500.2500, L100.0100 ####[facility] [address] [place], [address] HCT Normal 40-54 [facility] Comment on above: Result Comment: Canc elled via OM: Order cancelled - Patient discharged Performed By: #### L 500.2500, L100.0100 ####[facility] [address] [place], [address] HGB Normal 13.0-16.5 [facility] Comment on above: Result Comment: Canc elled via OM: Order cancelled - Patient discharged Performed By: #### L 500.2500, L100.0100 ####[facility] [address] [place], [address] MCH Normal 27.0-32.0 [facility] Comment on above: Result Comment: Canc elled via OM: Order cancelled - Patient discharged Performed By: #### L 500.2500, L100.0100 ####[facility] [address] [place], [address] MCHC Normal 32-36 [facility] Comment on above: Result Comment: Canc elled via OM: Order cancelled - Patient discharged Performed By: #### L 500.2500, L100.0100 ####[facility] [address] [place], [address] MCV Normal 80-94 [facility] Comment on above: Result Comment: Canc elled via OM: Order cancelled - Patient discharged Performed By: #### L 500.2500, L100.0100 ####[facility] [address] [place], [address] NEUT% Normal 47-70 [facility] Comment on above: Result Comment: Canc elled via OM: Order cancelled - Patient discharged Performed By: #### L 500.2500, L100.0100 ####[facility] [address] [place], [address] PLT Normal 150-450 [facility] Comment on above: Result Comment: Canc elled via OM: Order cancelled - Patient discharged Performed By: #### L 500.2500, L100.0100 ####[facility] [address] [place], [address] RBC Normal 4.6-6.2 [facility] Comment on above: Result Comment: Canc elled via OM: Order cancelled - Patient discharged Performed By: #### L 500.2500, L100.0100 ####[facility] [address] [place], [address] RDW CV Normal 11.6-14.6 [facility] Comment on above: Result Comment: Canc elled via OM: Order cancelled - Patient discharged Performed By: #### L 500.2500, L100.0100 ####[facility] [address] [place], [address] RDW SD Normal 35.1-43.9 [facility] Comment on above: Result Comment: Canc elled via OM: Order cancelled - Patient discharged Performed By: #### L 500.2500, L100.0100 ####[facility] [address] [place], [address] WBC Normal 4.4-11.0 [facility] Comment on above: Result Comment: Canc elled via OM: Order cancelled - Patient discharged Performed By: #### L 500.2500, L100.0100 ####[facility] [address] [place], [address] Basic Metabolic Profile (BMP )on 03-29-2024 BUN Normal 7-18 [facility] Comment on above: Result Comment: Canc elled via OM: Order cancelled - Patient discharged Performed By: #### L 500.2500, L100.0100 ####[facility] [address] [place], [address] BUN/CRE Normal 10-20 [facility] Comment on above: Result Comment: Canc elled via OM: Order cancelled - Patient discharged Performed By: #### L 500.2500, L100.0100 ####[facility] [address] [place], [address] CA,Total Normal 8.5-10.1 [facility] Comment on above: Result Comment: Canc elled via OM: Order cancelled - Patient discharged Performed By: #### L 500.2500, L100.0100 ####[facility] [address] [place], [address] CL Normal 98-107 [facility] Comment on above: Result Comment: Canc elled via OM: Order cancelled - Patient discharged Performed By: #### L 500.2500, L100.0100 ####[facility] [address] [place], [address] CO2 Normal 21.0-32.0 [facility] Comment on above: Result Comment: Canc elled via OM: Order cancelled - Patient discharged Performed By: #### L 500.2500, L100.0100 ####[facility] [address] [place], [address] CREAT,SERUM Normal 0.70-1.30 [facility] Comment on above: Result Comment: Canc elled via OM: Order cancelled - Patient discharged Performed By: #### L 500.2500, L100.0100 ####[facility] [address] [place], [address] EST GFR Normal >60 [facility] Comment on above: Result Comment: Canc elled via OM: Order cancelled - Patient discharged Performed By: #### L 500.2500, L100.0100 ####[facility] [address] [place], [address] EST GFR - AA Normal >60 [facility] Comment on above: Result Comment: Canc elled via OM: Order cancelled - Patient discharged Performed By: #### L 500.2500, L100.0100 ####[facility] [address] [place], [address] GAP Normal 5-15 [facility] Comment on above: Result Comment: Canc elled via OM: Order cancelled - Patient discharged Performed By: #### L 500.2500, L100.0100 ####[facility] [address] [place], [address] GLU Normal 74-106 [facility] Comment on above: Result Comment: Canc elled via OM: Order cancelled - Patient discharged Performed By: #### L 500.2500, L100.0100 ####[facility] [address] [place], [address] Potassium Normal 3.5-5.1 [facility] Comment on above: Result Comment: Canc elled via OM: Order cancelled - Patient discharged Performed By: #### L 500.2500, L100.0100 ####[facility] [address] [place], [address] Basic Metabolic Profile (BMP) Normal 136-145 [facility] Comment on above: Result Comment: Canc elled via OM: Order cancelled - Patient discharged Performed By: #### L 500.2500, L100.0100 ####[facility] [address] [place], [address] CBC W/Diff, Automatedon 11-2 Absolute Neut Normal 2.0-7.7 [facility] Comment on above: Result Comment: Canc elled via OM: Order cancelled - Patient discharged Performed By: #### L 500.2500, L100.0100 ####[facility] [address] [place], [address] HCT Normal 40-54 [facility] Comment on above: Result Comment: Canc elled via OM: Order cancelled - Patient discharged Performed By: #### L 500.2500, L100.0100 ####[facility] [address] [place], [address] HGB Normal 13.0-16.5 [facility] Comment on above: Result Comment: Canc elled via OM: Order cancelled - Patient discharged Performed By: #### L 500.2500, L100.0100 ####[facility] [address] [place], [address] MCH Normal 27.0-32.0 [facility] Comment on above: Result Comment: Canc elled via OM: Order cancelled - Patient discharged Performed By: #### L 500.2500, L100.0100 ####[facility] [address] [place], [address] MCHC Normal 32-36 [facility] Comment on above: Result Comment: Canc elled via OM: Order cancelled - Patient discharged Performed By: #### L 500.2500, L100.0100 ####[facility] [address] [place], [address] MCV Normal 80-94 [facility] Comment on above: Result Comment: Canc elled via OM: Order cancelled - Patient discharged Performed By: #### L 500.2500, L100.0100 ####[facility] [address] [place], [address] NEUT% Normal 47-70 [facility] Comment on above: Result Comment: Canc elled via OM: Order cancelled - Patient discharged Performed By: #### L 500.2500, L100.0100 ####[facility] [address] [place], [address] PLT Normal 150-450 [facility] Comment on above: Result Comment: Canc elled via OM: Order cancelled - Patient discharged Performed By: #### L 500.2500, L100.0100 ####[facility] [address] [place], [address] RBC Normal 4.6-6.2 [facility] Comment on above: Result Comment: Canc elled via OM: Order cancelled - Patient discharged Performed By: #### L 500.2500, L100.0100 ####[facility] [address] [place], [address] RDW CV Normal 11.6-14.6 [facility] Comment on above: Result Comment: Canc elled via OM: Order cancelled - Patient discharged Performed By: #### L 500.2500, L100.0100 ####[facility] [address] [place], [address] RDW SD Normal 35.1-43.9 [facility] Comment on above: Result Comment: Canc elled via OM: Order cancelled - Patient discharged Performed By: #### L 500.2500, L100.0100 ####[facility] [address] [place], [address] WBC Normal 4.4-11.0 [facility] Comment on above: Result Comment: Canc elled via OM: Order cancelled - Patient discharged Performed By: #### L 500.2500, L100.0100 ####[facility] [address] [place], [address] Absolute neutrophil countOrd ered By: Altagracia Lo on 03-28-2024 Neutrophils (Bld) [#/Vol] 8.8 10*3/uL High 2.0-7.7 [facility] Basic Metabolic Profile (BMP )on 03-28-2024 BUN/CRE 16.3 RATIO Normal 10-20 [facility] Comment on above: Performed By: #### L 100.0100, L500.2500 ####[facility] [address] [place], [address] CA,Total 8.5 mg/dL Normal 8.5-10.1 [facility] Comment on above: Performed By: #### L 100.0100, L500.2500 ####[facility] [address] [place], [address] Chloride [Moles/Vol] 106 mmol/L Normal 98-107 [facility] Comment on above: Performed By: #### L 100.0100, L500.2500 ####[facility] [address] [place], [address] CO2 [Moles/Vol] 25.0 mmol/L Normal 21.0-32.0 [facility] Comment on above: Performed By: #### L 100.0100, L500.2500 ####[facility] [address] [place], [address] Creatinine [Mass/Vol] 1.47 mg/dL High 0.70-1.30 [facility] Comment on above: Result Comment: The validity of the calculated GFR GFRAA in patients over70 years has not been determined. Clinical correlation isessential. Performed By: #### L 100.0100, L500.2500 ####[facility] [address] [place], [address] ECRCL 55.28 ml/min Normal [facility] Comment on above: Performed By: #### L 100.0100, L500.2500 ####[facility] [address] [place], [address] EST GFR - AA 59 mL/min Low >60 [facility] Comment on above: Result Comment: Afri can Swazi GFR Calc Performed By: #### L 100.0100, L500.2500 ####[facility] [address] [place], [address] GAP 7 Normal 5-15 [facility] Comment on above: Performed By: #### L 100.0100, L500.2500 ####[facility] [address] [place], [address] GFR/1.73 sq M.predicted among non-blacks MDRD (S/P/Bld) [Vol rate/Area] 49 mL/min/{1.73_m2} Low >60 [facility] Comment on above: Result Comment: Non- GFR Calc Performed By: #### L 100.0100, L500.2500 ####[facility] [address] [place], [address] Glucose [Mass/Vol] 142 mg/dL High 74-106 [facility] Comment on above: Result Comment: Fast ing Glucose result greater than or equal to 126 mg/dLsuggests DIABETES MELLITUS per A.D.A. criteria. Performed By: #### L 100.0100, L500.2500 ####[facility] [address] [place], [address] Potassium [Moles/Vol] 4.1 mmol/L Normal 3.5-5.1 [facility] Comment on above: Performed By: #### L 100.0100, L500.2500 ####[facility] [address] [place], [address] Sodium [Moles/Vol] 138 mmol/L Normal 136-145 [facility] Comment on above: Performed By: #### L 100.0100, L500.2500 ####[facility] [address] [place], [address] Urea nitrogen [Mass/Vol] 24 mg/dL High 7-18 [facility] Comment on above: Performed By: #### L 100.0100, L500.2500 ####[facility] [address] [place], [address] Basophil percentageOrdered B y: Altagracia Lo on 03-28-2024 Basophils/100 WBC (Bld) 0.1 % 0-1 [facility] Blood urea nitrogen (BUN)/cr eatinine ratioOrdered By: Altagracia Lo on 03-28-2024 Urea nitrogen/Creatinine [Mass ratio] 16.3 mg/mg 10-20 [facility] CBC W/Diff, Automatedon - Absolute Lymph 1.08 X10 3/uL Normal 0.83-4.51 [facility] Comment on above: Performed By: #### L 100.0100, L500.2500 ####[facility] [address] [place], [address] Absolute Neut 8.8 X10 3/uL High 2.0-7.7 [facility] Comment on above: Performed By: #### L 100.0100, L500.2500 ####[facility] [address] [place], [address] Basophils/100 WBC (Bld) 0.1 % Normal 0-1 [facility] Comment on above: Performed By: #### L 100.0100, L500.2500 ####[facility] [address] [place], [address] Eosinophils/100 WBC (Bld) 0.0 % Normal 0-5 [facility] Comment on above: Performed By: #### L 100.0100, L500.2500 ####[facility] [address] [place], [address] Erythrocyte distribution width (RBC) [Ratio] 13.4 % Normal 11.6-14.6 [facility] Comment on above: Performed By: #### L 100.0100, L500.2500 ####[facility] [address] [place], [address] Hematocrit (Bld) [Volume fraction] 39.3 % Low 40-54 [facility] Comment on above: Performed By: #### L 100.0100, L500.2500 ####[facility] [address] [place], [address] Hemoglobin (Bld) [Mass/Vol] 13.3 g/dL Normal 13.0-16.5 [facility] Comment on above: Performed By: #### L 100.0100, L500.2500 ####[facility] [address] [place], [address] IG% 0.600 Normal 0.0-0.9 [facility] Comment on above: Result Comment: IG% - Immature Granulocytes (promyelocytes, myelocytes andmetamyelocytes) > 1% indicates that a LEFT SHIFT is Present. Performed By: #### L 100.0100, L500.2500 ####[facility] [address] [place], [address] Lymphocytes/100 WBC (Bld) 10.3 % Low 19-41 [facility] Comment on above: Performed By: #### L 100.0100, L500.2500 ####[facility] [address] [place], [address] MCH (RBC) [Entitic mass] 31.7 pg Normal 27.0-32.0 [facility] Comment on above: Performed By: #### L 100.0100, L500.2500 ####[facility] [address] [place], [address] MCHC (RBC) [Mass/Vol] 33.8 g/dL Normal 32-36 [facility] Comment on above: Performed By: #### L 100.0100, L500.2500 ####[facility] [address] [place], [address] MCV (RBC) [Entitic vol] 93.6 fL Normal 80-94 [facility] Comment on above: Performed By: #### L 100.0100, L500.2500 ####[facility] [address] [place], [address] Monocytes/100 WBC (Bld) 5.2 % Normal 0-10 [facility] Comment on above: Performed By: #### L 100.0100, L500.2500 ####[facility] [address] [place], [address] Neutrophils/100 WBC (Bld) 83.8 % High 47-70 [facility] Comment on above: Performed By: #### L 100.0100, L500.2500 ####[facility] [address] [place], [address] Nucleated RBC (Bld) [#/Vol] 0 10*3/uL Normal 0-5 [facility] Comment on above: Performed By: #### L 100.0100, L500.2500 ####[facility] [address] [place], [address] Platelet mean volume (Bld) [Entitic vol] 10.1 fL Normal 6.2-12.0 [facility] Comment on above: Performed By: #### L 100.0100, L500.2500 ####[facility] [address] [place], [address] Platelets (Bld) [#/Vol] 210 10*3/uL Normal 150-450 [facility] Comment on above: Performed By: #### L 100.0100, L500.2500 ####[facility] [address] [place], [address] RBC (Bld) [#/Vol] 4.20 10*6/uL Low 4.6-6.2 [facility] Comment on above: Performed By: #### L 100.0100, L500.2500 ####[facility] [address] [place], [address] RDW SD 45.4 fl High 35.1-43.9 [facility] Comment on above: Performed By: #### L 100.0100, L500.2500 ####[facility] [address] [place], [address] WBC (Bld) [#/Vol] 10.5 10*3/uL Normal 4.4-11.0 [facility] Comment on above: Performed By: #### L 100.0100, L500.2500 ####[facility] [address] [place], [address] Carbohydrate AG 19-9on 03-28 CA 19-9 < 2 Normal 0-35 [facility] Comment on above: Result Comment: [employer] Electrochemiluminescence Immunoassay(ECLIA)Values obtained with different assay methods or kits cannotbe used interchangeably. Results cannot be interpreted asabsolute evidence of the presence or absence of malignantdisease.Performed at: [address] [place], [place] [id number] Director: Donell Erazo PhD, Phone: [phone] Performed By: #### L 1450.5359 ####[facility] [address] [place], [address] Carbon dioxide measurementOr dered By: Altagracia Lo on 03-28-2024 CO2 [Moles/Vol] 25.0 mmol/L 21.0-32.0 [facility] Chloride measurementOrdered By: Altagracia Lo on 03-28-2024 Chloride [Moles/Vol] 106 mmol/L 98-107 [facility] Consultation - Surgicalon Consultation - Surgical Normal [facility] Discharge Instructionon 03-02 Discharge Instruction Normal [facility] Eosinophil percentageOrdered By: Altagracia Lo on 03-28-2024 Eosinophils/100 WBC (Bld) 0.0 % 0-5 [facility] Erythrocyte distribution wid th ratioOrdered By: Altagracia Lo on 03-28-2024 Erythrocyte distribution width (RBC) [Ratio] 13.4 % 11.6-14.6 [facility] Erythrocyte distribution wid th standard deviationOrdered By: Altagracia Lo on 03-28-2024 Erythrocyte distribution width (RBC) [Entitic vol] 45.4 fL High 35.1-43.9 [facility] Estimated glomerular filtrat ion rate (GFR) AmericanOrdered By: Altagracia Lo on 03-28-2024 Estimated GFR (MDRD) Amer 59 mL/min Low >60 [facility] Comment on above: GFR Calc Estimation of creatinine edgardo aranceOrdered By: Altagracia Lo on 03-28-2024 Estimated Creatinine Clearance Calc 55.28 ml/min [facility] Glomerular filtration rate ( GFR) estimationOrdered By: Altagracia Lo on 03-28-2024 Estimated GFR (MDRD) Non-Af Amer 49 mL/min Low >60 [facility] Comment on above: Non- GFR Calc Glucose measurementOrdered B y: Altagracia Lo on 03-28-2024 Glucose [Mass/Vol] 142 mg/dL High 74-106 [facility] Comment on above: Fasting Glucose resu lt greater than or equal to 126 mg/dL suggests DIABETES MELLITUS per A.D.A. criteria. Hematocrit Auto (Bld) [Volum e fraction]Ordered By: Altagracia Lo on 03-28-2024 Hematocrit (Bld) [Volume fraction] 39.3 % Low 40-54 [facility] Hemoglobin measurementOrdere d By: Altagracia Lo on 03-28-2024 Hemoglobin (Bld) [Mass/Vol] 13.3 g/dL 13.0-16.5 [facility] Immature granulocytes/100 WB C Auto (Bld)Ordered By: Altagracia Lo on 03-28-2024 Immature granulocytes/100 WBC (Bld) 0.600 % 0.0-0.9 [facility] Comment on above: IG% - Immature Granu locytes (promyelocytes, myelocytes and metamyelocytes) > 1% indicates that a LEFT SHIFT is Present. Lymphocytes Auto (Unsp spec) [#/Vol]Ordered By: Altagracia Lo on 03-28-2024 Lymphocytes (Bld) [#/Vol] 1.08 10*3/uL 0.83-4.51 [facility] Lymphocytes/100 WBC Auto (Un sp spec)Ordered By: Altagracia Lo on 03-28-2024 Lymphocytes/100 WBC (Bld) 10.3 % Low 19-41 [facility] MCV (mean corpuscular volume ) determinationOrdered By: Altagracia Lo on 03-28-2024 MCV (RBC) [Entitic vol] 93.6 fL 80-94 [facility] Mean corpuscular hemoglobin (MCH) determinationOrdered By: Altagracia Lo on 03-28-2024 MCH (RBC) [Entitic mass] 31.7 pg 27.0-32.0 [facility] Mean corpuscular hemoglobin concentration (MCHC) determinationOrdered By: Altagracia Lo on 03-28-2024 MCHC (RBC) [Mass/Vol] 33.8 g/dL 32-36 [facility] Mean platelet volume determi nationOrdered By: Altagracia Lo on 03-28-2024 Platelet mean volume (Bld) [Entitic vol] 10.1 fL 6.2-12.0 [facility] Monocyte percentageOrdered B y: Altagracia Valezhao on 03-28-2024 Monocytes/100 WBC (Bld) 5.2 % 0-10 [facility] Neutrophil percentageOrdered By: Altagracia Valezhao on 03-28-2024 Neutrophils/100 WBC (Bld) 83.8 % High 47-70 [facility] Nucleated red blood cell per centageOrdered By: Altagracia Wally on 03-28-2024 Nucleated RBC/100 WBC (Bld) [Ratio] 0 % 0-5 [facility] Platelet countOrdered By: Na na Wally on 03-28-2024 Platelets (Bld) [#/Vol] 210 10*3/uL 150-450 [facility] Potassium measurementOrdered By: Altagracianiki Lo on 03-28-2024 Potassium [Moles/Vol] 4.1 mmol/L 3.5-5.1 [facility] RBC Auto (Bld) [#/Vol]Ordere d By: Altagracia Wally on 03-28-2024 RBC (Bld) [#/Vol] 4.20 10*6/uL Low 4.6-6.2 [facility] Serum anion gap measurementO rdered By: Altagracia Wally on 03-28-2024 Anion gap [Moles/Vol] 7 mmol/L 5-15 [facility] Serum or plasma calcium anson urement (mass/volume)Ordered By: Altagracianiki Lo on 03-28-2024 Calcium [Mass/Vol] 8.5 mg/dL 8.5-10.1 [facility] Serum or plasma creatinine m easurement (mass/volume)Ordered By: Altagracia Lo on 03-28-2024 Creatinine [Mass/Vol] 1.47 mg/dL High 0.70-1.30 [facility] Comment on above: The validity of the calculated GFR & GFRAA in patients over 70 years has not been determined. Clinical correlation is essential. Serum or plasma urea nitroge n measurement (mass/volume)Ordered By: Altagracianiki Lo on 03-28-2024 Urea nitrogen [Mass/Vol] 24 mg/dL High 7-18 [facility] Sodium levelOrdered By: Altagracia Lo on 03-28-2024 Sodium [Moles/Vol] 138 mmol/L 136-145 [facility] White blood cell (WBC) count Ordered By: Altagracia Lo on 03-28-2024 WBC (Bld) [#/Vol] 10.5 10*3/uL 4.4-11.0 [facility] Albumin to globulin ratioOrd ered By: Andrea Serrano on 03-27-2024 Albumin/Globulin [Mass ratio] 0.8 {ratio} Low 0.9-2.4 [facility] Bilirubin, totalOrdered By: Andrea Serrano on 03-27-2024 Bilirubin [Mass/Vol] 1.50 mg/dL High 0.20-1.00 [facility] Comment on above: For patients on eltr ombopag therapy, use of Dimension [place] TBIL is not recommended. CA 19-9 agOrdered By: Vaishali Sher on 03-27-2024 CA 19-9 Antigen < 2 U/mL 0-35 [facility] Comment on above: [employer] El ectrochemiluminescence Immunoassay(ECLIA)Values obtained with different assay methods or kits cannotbe used interchangeably. Results cannot be interpreted asabsolute evidence of the presence or absence of malignantdisease.Performed at: [facility] [place] [id number] Director: Donell Erazo PhD, Phone: [phone] CBC-Complete Blood Cnt No Di ffon 03-27-2024 Erythrocyte distribution width (RBC) [Ratio] 13.8 % Normal 11.6-14.6 [facility] Comment on above: Performed By: #### L 100.0500, L500.4050 ####[facility] [address] [facility] [place], [place], [id number] Hematocrit (Bld) [Volume fraction] 38.8 % Low 40-54 [facility] Comment on above: Performed By: #### L 100.0500, L500.4050 ####[facility] [address] [facility] [place], [address] Hemoglobin (Bld) [Mass/Vol] 12.7 g/dL Low 13.0-16.5 [facility] Comment on above: Performed By: #### L 100.0500, L500.4050 ####[facility] [address] [place], [address] MCH (RBC) [Entitic mass] 31.1 pg Normal 27.0-32.0 [facility] Comment on above: Performed By: #### L 100.0500, L500.4050 ####[facility] [address] [place], [address] MCHC (RBC) [Mass/Vol] 32.7 g/dL Normal 32-36 [facility] Comment on above: Performed By: #### L 100.0500, L500.4050 ####[facility] [address] [place], [address] MCV (RBC) [Entitic vol] 95.1 fL High 80-94 [facility] Comment on above: Performed By: #### L 100.0500, L500.4050 ####[facility] [address] [place], [address] Platelet mean volume (Bld) [Entitic vol] 9.4 fL Normal 6.2-12.0 [facility] Comment on above: Performed By: #### L 100.0500, L500.4050 ####[facility] [address] [place], [address] Platelets (Bld) [#/Vol] 174 10*3/uL Normal 150-450 [facility] Comment on above: Performed By: #### L 100.0500, L500.4050 ####[facility] [address] [place], [address] RBC (Bld) [#/Vol] 4.08 10*6/uL Low 4.6-6.2 [facility] Comment on above: Performed By: #### L 100.0500, L500.4050 ####[facility] [address] [place], [address] RDW SD 48.2 fl High 35.1-43.9 [facility] Comment on above: Performed By: #### L 100.0500, L500.4050 ####[facility] [address] [place], [address] WBC (Bld) [#/Vol] 9.1 10*3/uL Normal 4.4-11.0 [facility] Comment on above: Performed By: #### L 100.0500, L500.4050 ####[facility] [address] [place], [address] Comprehensive Metabolic Prof ilon 03-27-2024 Albumin [Mass/Vol] 2.6 g/dL Low 3.2-5.0 [facility] Comment on above: Performed By: #### L 100.0500, L500.4050 ####[facility] [address] [place], [address] Albumin/Globulin [Mass ratio] 0.8 {ratio} Low 0.9-2.4 [facility] Comment on above: Performed By: #### L 100.0500, L500.4050 ####[facility] [address] [place], [address] ALK P 107 U/L Normal 45-117 [facility] Comment on above: Performed By: #### L 100.0500, L500.4050 ####[facility] [address] [place], [address] ALT [Catalytic activity/Vol] 228 U/L High 16-61 [facility] Comment on above: Performed By: #### L 100.0500, L500.4050 ####[facility] [address] [place], [address] AST [Catalytic activity/Vol] 128 U/L High 15-37 [facility] Comment on above: Performed By: #### L 100.0500, L500.4050 ####[facility] [address] [place], [address] Bilirubin [Mass/Vol] 1.50 mg/dL High 0.20-1.00 [facility] Comment on above: Result Comment: For patients on eltrombopag therapy, use of Dimension [place] TBIL is not recommended. Performed By: #### L 100.0500, L500.4050 ####[facility] [address] [place], [address] BUN/CRE 15.0 RATIO Normal 10-20 [facility] Comment on above: Performed By: #### L 100.0500, L500.4050 ####[facility] [address] [place], [address] CA,Total 8.2 mg/dL Low 8.5-10.1 [facility] Comment on above: Performed By: #### L 100.0500, L500.4050 ####[facility] [address] [place], [address] Chloride [Moles/Vol] 107 mmol/L Normal 98-107 [facility] Comment on above: Performed By: #### L 100.0500, L500.4050 ####[facility] [address] [place], [address] CO2 [Moles/Vol] 27.0 mmol/L Normal 21.0-32.0 [facility] Comment on above: Performed By: #### L 100.0500, L500.4050 ####[facility] [address] [place], [address] Creatinine [Mass/Vol] 1.60 mg/dL High 0.70-1.30 [facility] Comment on above: Result Comment: The validity of the calculated GFR GFRAA in patients over70 years has not been determined. Clinical correlation isessential. Performed By: #### L 100.0500, L500.4050 ####[facility] [address] [place], [address] ECRCL 50.79 ml/min Normal [facility] Comment on above: Performed By: #### L 100.0500, L500.4050 ####[facility] [address] [place], [address] EST GFR - AA 54 mL/min Low >60 [facility] Comment on above: Result Comment: Afri can Swazi GFR Calc Performed By: #### L 100.0500, L500.4050 ####[facility] [address] [place], [address] GAP 5 Normal 5-15 [facility] Comment on above: Performed By: #### L 100.0500, L500.4050 ####[facility] [address] [place], [address] GFR/1.73 sq M.predicted among non-blacks MDRD (S/P/Bld) [Vol rate/Area] 45 mL/min/{1.73_m2} Low >60 [facility] Comment on above: Result Comment: Non- GFR Calc Performed By: #### L 100.0500, L500.4050 ####[facility] [address] [place], [address] Globulin (S) [Mass/Vol] 3.3 g/dL Normal 2.2-4.2 [facility] Comment on above: Performed By: #### L 100.0500, L500.4050 ####[facility] [address] [place], [address] Glucose [Mass/Vol] 126 mg/dL High 74-106 [facility] Comment on above: Result Comment: Fast ing Glucose result greater than or equal to 126 mg/dLsuggests DIABETES MELLITUS per A.D.A. criteria. Performed By: #### L 100.0500, L500.4050 ####[facility] [address] [place], [address] Potassium [Moles/Vol] 3.6 mmol/L Normal 3.5-5.1 [facility] Comment on above: Performed By: #### L 100.0500, L500.4050 ####[facility] [address] [place], [address] Sodium [Moles/Vol] 139 mmol/L Normal 136-145 [facility] Comment on above: Performed By: #### L 100.0500, L500.4050 ####[facility] [address] [place], [address] T PROT 5.9 g/dL Low 6.4-8.2 [facility] Comment on above: Performed By: #### L 100.0500, L500.4050 ####[facility] [address] [place], [address] Urea nitrogen [Mass/Vol] 24 mg/dL High 7-18 [facility] Comment on above: Performed By: #### L 100.0500, L500.4050 ####[facility] [address] [place], [address] ERCP Biliary/Pancreason 03-02 ERCP Biliary/Pancreas Normal [facility] ERCP Reporton 03-27-2024 ERCP Report Normal [facility] Laboratory - Chemistry and C hemistry - challengeOrdered By: Andrea Serrano on 03-27-2024 AST [Catalytic activity/Vol] 128 U/L High 15-37 [facility] MR/POSTOP.ANEon 03-27-2024 MR/POSTOP.ANE Normal [facility] MR/[id number] 03-27-2024 MR/POSTOPAN2 Normal [facility] Magnesiumon 03-27-2024 Magnesium [Mass/Vol] 2.6 mg/dL Normal 1.6-2.6 [facility] Comment on above: Performed By: #### L 501.5200 ####[facility] [address] [place], [place], [address] Magnesium measurementOrdered By: Altagracia Lo on 03-27-2024 Magnesium [Mass/Vol] 2.6 mg/dL 1.6-2.6 [facility] Serum globulin measurementOr dered By: Andrea Serrano on 03-27-2024 Globulin (S) [Mass/Vol] 3.3 g/dL 2.2-4.2 [facility] Serum or plasma alanine wilde otransferase (ALT) measurementOrdered By: Andrea Serrano on 03-27-2024 ALT [Catalytic activity/Vol] 228 U/L High 16-61 [facility] Serum or plasma albumin anson urement (mass/volume)Ordered By: Andrea Serrano on 03-27-2024 Albumin [Mass/Vol] 2.6 g/dL Low 3.2-5.0 [facility] Serum or plasma alkaline rui sphatase measurementOrdered By: Andrea Serrano on 03-27-2024 ALP [Catalytic activity/Vol] 107 U/L 45-117 [facility] Total proteinOrdered By: Marianne Serrano on 03-27-2024 Protein [Mass/Vol] 5.9 g/dL Low 6.4-8.2 [facility] Abdomen/Pelvis W IV Cont ONL Yon 03-26-2024 Abdomen/Pelvis W IV Cont ONLY Normal [facility] Basic Metabolic Profile (BMP )on 03-26-2024 BUN/CRE 14.4 RATIO Normal 10-20 [facility] Comment on above: Performed By: #### L 300.4310, L500.2500, L300.3900, L501.2450, L501.5200, L500.3400, L100.0100 ####[facility] [address] [place], [place], [address] CA,Total 8.9 mg/dL Normal 8.5-10.1 [facility] Comment on above: Performed By: #### L 300.4310, L500.2500, L300.3900, L501.2450, L501.5200, L500.3400, L100.0100 ####[facility] [address] [place], [address] Chloride [Moles/Vol] 104 mmol/L Normal 98-107 [facility] Comment on above: Performed By: #### L 300.4310, L500.2500, L300.3900, L501.2450, L501.5200, L500.3400, L100.0100 ####[facility] [address] [place], [address] CO2 [Moles/Vol] 26.0 mmol/L Normal 21.0-32.0 [facility] Comment on above: Performed By: #### L 300.4310, L500.2500, L300.3900, L501.2450, L501.5200, L500.3400, L100.0100 ####[facility] [address] [place], [address] Creatinine [Mass/Vol] 1.74 mg/dL High 0.70-1.30 [facility] Comment on above: Result Comment: The validity of the calculated GFR GFRAA in patients over70 years has not been determined. Clinical correlation isessential. Performed By: #### L 300.4310, L500.2500, L300.3900, L501.2450, L501.5200, L500.3400, L100.0100 ####[facility] [address] [place], [address] ECRCL 46.70 ml/min Normal [facility] Comment on above: Performed By: #### L 300.4310, L500.2500, L300.3900, L501.2450, L501.5200, L500.3400, L100.0100 ####[facility] [address] [place], [address] EST GFR - AA 49 mL/min Low >60 [facility] Comment on above: Result Comment: Afri can Swazi GFR Calc Performed By: #### L 300.4310, L500.2500, L300.3900, L501.2450, L501.5200, L500.3400, L100.0100 ####[facility] [address] [place], [address] GAP 9 Normal 5-15 [facility] Comment on above: Performed By: #### L 300.4310, L500.2500, L300.3900, L501.2450, L501.5200, L500.3400, L100.0100 ####[facility] [address] [place], [place], [phone] GFR/1.73 sq M.predicted among non-blacks MDRD (S/P/Bld) [Vol rate/Area] 40 mL/min/{1.73_m2} Low >60 [facility] Comment on above: Result Comment: Non- GFR Calc Performed By: #### L 300.4310, L500.2500, L300.3900, L501.2450, L501.5200, L500.3400, L100.0100 ####[facility] [address] [place], [address] Glucose [Mass/Vol] 163 mg/dL High 74-106 [facility] Comment on above: Result Comment: Fast ing Glucose result greater than or equal to 126 mg/dLsuggests DIABETES MELLITUS per A.D.A. criteria. Performed By: #### L 300.4310, L500.2500, L300.3900, L501.2450, L501.5200, L500.3400, L100.0100 ####[facility] [address] [place], [address] Potassium [Moles/Vol] 3.7 mmol/L Normal 3.5-5.1 [facility] Comment on above: Performed By: #### L 300.4310, L500.2500, L300.3900, L501.2450, L501.5200, L500.3400, L100.0100 ####[facility] [address] [place], [address] Sodium [Moles/Vol] 139 mmol/L Normal 136-145 [facility] Comment on above: Performed By: #### L 300.4310, L500.2500, L300.3900, L501.2450, L501.5200, L500.3400, L100.0100 ####[facility] [address] [place], [address] Urea nitrogen [Mass/Vol] 25 mg/dL High 7-18 [facility] Comment on above: Performed By: #### L 300.4310, L500.2500, L300.3900, L501.2450, L501.5200, L500.3400, L100.0100 ####[facility] [address] [place], [place], [address] Bilirubin Test strip Ql (U)O rdered By: Thomas Domínguez on 03-26-2024 Bilirubin Ql (U) Negative Negative [facility] Bilirubin directOrdered By: Thomas Domínguez on 03-26-2024 Bilirubin.direct [Mass/Vol] 2.57 mg/dL High 0.00-0.30 [facility] Comment on above: Performed By: #### L 300.4310, L500.2500, L300.3900, L501.2450, L501.5200, L500.3400, L100.0100 ####[facility] [address] [place], [place], [address] Brain/Head without Contrasto n 03-26-2024 Brain/Head without Contrast Normal [facility] CBC W/Diff, Automatedon 11-2 Absolute Lymph 0.49 X10 3/uL Low 0.83-4.51 [facility] Comment on above: Performed By: #### L 300.4310, L500.2500, L300.3900, L501.2450, L501.5200, L500.3400, L100.0100 ####[facility] [address] [place], [address] Absolute Neut 11.5 X10 3/uL High 2.0-7.7 [facility] Comment on above: Performed By: #### L 300.4310, L500.2500, L300.3900, L501.2450, L501.5200, L500.3400, L100.0100 ####[facility] [address] [place], [address] Basophils/100 WBC (Bld) 0.2 % Normal 0-1 [facility] Comment on above: Performed By: #### L 300.4310, L500.2500, L300.3900, L501.2450, L501.5200, L500.3400, L100.0100 ####[facility] [address] [place], [address] Eosinophils/100 WBC (Bld) 0.1 % Normal 0-5 [facility] Comment on above: Performed By: #### L 300.4310, L500.2500, L300.3900, L501.2450, L501.5200, L500.3400, L100.0100 ####[facility] [address] [place], [address] Erythrocyte distribution width (RBC) [Ratio] 13.8 % Normal 11.6-14.6 [facility] Comment on above: Performed By: #### L 300.4310, L500.2500, L300.3900, L501.2450, L501.5200, L500.3400, L100.0100 ####[facility] [address] [place], [address] Hematocrit (Bld) [Volume fraction] 42.2 % Normal 40-54 [facility] Comment on above: Performed By: #### L 300.4310, L500.2500, L300.3900, L501.2450, L501.5200, L500.3400, L100.0100 ####[facility] [address] [place], [address] Hemoglobin (Bld) [Mass/Vol] 14.4 g/dL Normal 13.0-16.5 [facility] Comment on above: Performed By: #### L 300.4310, L500.2500, L300.3900, L501.2450, L501.5200, L500.3400, L100.0100 ####[facility] [address], [address] IG% 0.800 Normal 0.0-0.9 [facility] Comment on above: Result Comment: IG% - Immature Granulocytes (promyelocytes, myelocytes andmetamyelocytes) > 1% indicates that a LEFT SHIFT is Present. Performed By: #### L 300.4310, L500.2500, L300.3900, L501.2450, L501.5200, L500.3400, L100.0100 ####[facility] [address], [address] Lymphocytes/100 WBC (Bld) 3.7 % Low 19-41 [facility] Comment on above: Performed By: #### L 300.4310, L500.2500, L300.3900, L501.2450, L501.5200, L500.3400, L100.0100 ####[facility] [address] [place], [address] MCH (RBC) [Entitic mass] 32.1 pg High 27.0-32.0 [facility] Comment on above: Performed By: #### L 300.4310, L500.2500, L300.3900, L501.2450, L501.5200, L500.3400, L100.0100 ####[facility] [address] [place], [address] MCHC (RBC) [Mass/Vol] 34.1 g/dL Normal 32-36 [facility] Comment on above: Performed By: #### L 300.4310, L500.2500, L300.3900, L501.2450, L501.5200, L500.3400, L100.0100 ####[facility] [address] [place], [address] MCV (RBC) [Entitic vol] 94.0 fL Normal 80-94 [facility] Comment on above: Performed By: #### L 300.4310, L500.2500, L300.3900, L501.2450, L501.5200, L500.3400, L100.0100 ####[facility] [address] [place], [address] Monocytes/100 WBC (Bld) 8.7 % Normal 0-10 [facility] Comment on above: Performed By: #### L 300.4310, L500.2500, L300.3900, L501.2450, L501.5200, L500.3400, L100.0100 ####[facility] [address] [place], [address] Neutrophils/100 WBC (Bld) 86.5 % High 47-70 [facility] Comment on above: Performed By: #### L 300.4310, L500.2500, L300.3900, L501.2450, L501.5200, L500.3400, L100.0100 ####[facility] [address] [place], [address] Nucleated RBC (Bld) [#/Vol] 0 10*3/uL Normal 0-5 [facility] Comment on above: Performed By: #### L 300.4310, L500.2500, L300.3900, L501.2450, L501.5200, L500.3400, L100.0100 ####[facility] [address] [place], [address] Platelet mean volume (Bld) [Entitic vol] 9.7 fL Normal 6.2-12.0 [facility] Comment on above: Performed By: #### L 300.4310, L500.2500, L300.3900, L501.2450, L501.5200, L500.3400, L100.0100 ####[facility] [address] [place], [address] Platelets (Bld) [#/Vol] 198 10*3/uL Normal 150-450 [facility] Comment on above: Performed By: #### L 300.4310, L500.2500, L300.3900, L501.2450, L501.5200, L500.3400, L100.0100 ####[facility] [address] [place], [address] RBC (Bld) [#/Vol] 4.49 10*6/uL Low 4.6-6.2 [facility] Comment on above: Performed By: #### L 300.4310, L500.2500, L300.3900, L501.2450, L501.5200, L500.3400, L100.0100 ####[facility] [address] [place], [address] RDW SD 47.4 fl High 35.1-43.9 [facility] Comment on above: Performed By: #### L 300.4310, L500.2500, L300.3900, L501.2450, L501.5200, L500.3400, L100.0100 ####[facility] [address] [place], [address] WBC (Bld) [#/Vol] 13.3 10*3/uL High 4.4-11.0 [facility] Comment on above: Performed By: #### L 300.4310, L500.2500, L300.3900, L501.2450, L501.5200, L500.3400, L100.0100 ####[facility] [address] [place], [place], [address] Emergency Department Summary on 03-26-2024 Emergency Department Summary Normal [facility] Epithelial cells.squamous LM Ql (Urine sed)Ordered By: Thomas Domínguez on 03-26-2024 Epithelial cells.squamous LM.HPF (Urine sed) [#/Area] 0 /[HPF] 0-5 [facility] Gallbladderon 03-26-2024 Gallbladder Normal [facility] Glucose Ql (U)Ordered By: Peace Domínguez on 03-26-2024 Urine Glucose (UA) Normal mg/dl Normal [facility] H AND P Exam - Hospitaliston 03-26-2024 H&P Exam - Hospitalist Normal [facility] International normalized rat io (INR) calculationOrdered By: Thomas Domínguez on 03-26-2024 INR Coag (Bld) [Relative time] 1.1 {INR} [facility] Ketones Test strip Ql (U)Ord ered By: Thomas Domínguez on 03-26-2024 Ketones Ql (U) 5 mg/dl High Negative [facility] Lipase measurementOrdered By : Thomas Domínguez on 03-26-2024 Lipase [Catalytic activity/Vol] U/L High 13-75 [facility] Comment on above: Please note:LIPASE r evised [...] 300.4310, L500.2500, L300.3900, L501.2450, L501.5200, L500.3400, L100.0100 ####[facility] [address] [place], [address] Liver Profileon 03-26-2024 Albumin [Mass/Vol] 3.2 g/dL Normal 3.2-5.0 [facility] Comment on above: Performed By: #### L 300.4310, L500.2500, L300.3900, L501.2450, L501.5200, L500.3400, L100.0100 ####[facility] [address] [place], [address] ALK P 135 U/L High 45-117 [facility] Comment on above: Performed By: #### L 300.4310, L500.2500, L300.3900, L501.2450, L501.5200, L500.3400, L100.0100 ####[facility] [address] [place], [address] ALT [Catalytic activity/Vol] 344 U/L High 16-61 [facility] Comment on above: Performed By: #### L 300.4310, L500.2500, L300.3900, L501.2450, L501.5200, L500.3400, L100.0100 ####[facility] [address] [place], [address] AST [Catalytic activity/Vol] 287 U/L High 15-37 [facility] Comment on above: Performed By: #### L 300.4310, L500.2500, L300.3900, L501.2450, L501.5200, L500.3400, L100.0100 ####[facility] [address] [place], [address] Bilirubin [Mass/Vol] 4.00 mg/dL High 0.20-1.00 [facility] Comment on above: Result Comment: For patients on eltrombopag therapy, use of Dimension [place] TBIL is not recommended. Performed By: #### L 300.4310, L500.2500, L300.3900, L501.2450, L501.5200, L500.3400, L100.0100 ####[facility] [address] [place], [place], [address] Globulin (S) [Mass/Vol] 3.5 g/dL Normal 2.2-4.2 [facility] Comment on above: Performed By: #### L 300.4310, L500.2500, L300.3900, L501.2450, L501.5200, L500.3400, L100.0100 ####[facility] [address] [place], [place], [address] T PROT 6.7 g/dL Normal 6.4-8.2 [facility] Comment on above: Performed By: #### L 300.4310, L500.2500, L300.3900, L501.2450, L501.5200, L500.3400, L100.0100 ####[facility] [address] [place], [address] MR/CON.PCM.GIon 03-26-2024 MR/CON.PCM.GI Normal [facility] MRCP Abdomen without Contras ton 03-26-2024 MRCP Abdomen without Contrast Normal [facility] Magnesiumon 03-26-2024 Magnesium [Mass/Vol] 1.4 mg/dL Low 1.6-2.6 [facility] Comment on above: Performed By: #### L 300.4310, L500.2500, L300.3900, L501.2450, L501.5200, L500.3400, L100.0100 ####[facility] [address] [place], [place], [address] Microscopic analysis of urin e for red blood cells (RBC)Ordered By: Thomas Domínguez on 03-26-2024 Urine RBC 5-10 SEEN /hpf 0-5 [facility] Mucus LM Ql (Urine sed)Order ed By: Thomas Domínguez on 03-26-2024 Mucus Ql (Urine sed) 0 SEEN /hpf [facility] Nitrite Test strip Ql (U)Ord ered By: Thomas Domínguez on 03-26-2024 Nitrite Ql (U) Negative Negative [facility] Partial Thromboplast Timeon 03-26-2024 aPTT Coag (Bld) [Time] 25.8 s Normal 24.1-36.2 [facility] Comment on above: Performed By: #### L 300.4310, L500.2500, L300.3900, L501.2450, L501.5200, L500.3400, L100.0100 ####[facility] [address] [place], [place], [phone] Protein Test strip Ql (U)Ord ered By: Thomas Domínguez on 03-26-2024 Protein Ql (U) 15 mg/dl High Negative [facility] Prothrombin Time w/INRon INR Coag (PPP) [Relative time] 1.1 {INR} Normal [facility] Comment on above: Performed By: #### L 300.4310, L500.2500, L300.3900, L501.2450, L501.5200, L500.3400, L100.0100 ####[facility] [address] [place], [address] PT Coag (PPP) [Time] 14.4 s Normal 11.7-14.9 [facility] Comment on above: Performed By: #### L 300.4310, L500.2500, L300.3900, L501.2450, L501.5200, L500.3400, L100.0100 ####[facility] [address] [place], [address] Prothrombin timeOrdered By: Thomas Domínguez on 03-26-2024 PT Coag (PPP) [Time] 14.4 s 11.7-14.9 [facility] Urinalysis, Completeon 03-26 BACTERIA 2+ /hpf Normal None Seen [facility] Comment on above: Order Comment: CLEAN CATCH Performed By: #### L 400.0001 ####[facility] [address] [place], [address] EPI,SQUAMOUS 0-5 SEEN Normal 0-5 [facility] Comment on above: Order Comment: CLEAN CATCH Performed By: #### L 400.0001 ####[facility] [address] [place], [address] RBC 5-10 SEEN Normal 0-5 [facility] Comment on above: Order Comment: CLEAN CATCH Performed By: #### L 400.0001 ####[facility] [address] [place], [address] Mucus Ql (Urine sed) 0 SEEN Normal [facility] Comment on above: Order Comment: CLEAN CATCH Performed By: #### L 400.0001 ####[facility] [address] [place], [address] WBC 0 SEEN Normal 0-5 [facility] Comment on above: Order Comment: CLEAN CATCH Performed By: #### L 400.0001 ####[facility] [address] [place], [address] Urine blood detectionOrdered By: Thomas Domínguez on 03-26-2024 Urine Occult Blood 10 /ul High Negative [facility] Urine clarityOrdered By: Barry Domínguez on 03-26-2024 Clarity (U) Sl. Cloudy Clear [facility] Urine color determinationOrd ered By: Thomas Domínguez on 03-26-2024 Color (U) Yellow Yellow [facility] Urine leukocyte esterase det ection by dipstickOrdered By: Thomas Domínguez on 03-26-2024 Leukocyte esterase Test strip Ql (U) Negative Negative [facility] Urine pHOrdered By: Thomas bryan on 03-26-2024 pH (U) 6.0 [pH] 5.0 - 8.0 [facility] Urine sediment bacteria coun t by microscopy (number/high power field)Ordered By: Thomas Domínguez on 03-26-2024 Bacteria LM.HPF (Urine sed) [#/Area] 2 /[HPF] None Seen [facility] Urine specific gravity measu rementOrdered By: Thomas Domínguez on 03-26-2024 Specific gravity (U) [Rel density] 1.010 1.002-1.030 [facility] Urobilinogen Ql (U)Ordered B y: Thomas Domínguez on 03-26-2024 Urobilinogen (U) [Mass/Vol] 4 mg/dL High Normal [facility] White blood cell countOrdere d By: Thomas Domínguez on 03-26-2024 Urine WBC 0 SEEN /hpf 0-5 [facility] aPTT Coag (PPP) [Time]Ordere d By: Thomas Domínguez on 03-26-2024 aPTT Coag (Bld) [Time] 25.8 s 24.1-36.2 [facility] XR CERVICAL 2V AP/LATon 01-30 XR CERVICAL [...] as described, moderate to severe at C6-C7 Storage Worker[facility] Transcribe Date/Time: Mar 01 2024 12:10A Dictated by : CHELSEA CASTILLO MD This examination was interpreted and the report reviewed and electronically signed by: CHELSEA CASTILLO MD on Mar 01 2024 12:12AM EST [id number] Normal [facility] XR SHOULDER 2V AP/TRUE AP LT [...] the greater tuberosity suggests rotator cuff tendinosis. Storage Worker: [employer] Transcribe Date/Time: Mar 01 2024 12:12A Dictated by : CHELSEA CASTILLO MD This examination was interpreted and the report reviewed and electronically signed by: CHELSEA CASTILLO MD on Mar 01 2024 12:18AM EST [id number] Normal [facility] CNOVon 02-14-2024 CNOV Office Visit ([facility] ) -- FRAN PAREKH ([id number]) 1945 M Date Time Provider Department 02/14/24 [...] flexion ALLEVIATING FEATURES: tylenol Hurt it playing [employer] years ago. Denies past surgeries,extremity numbness, tingling, [...] of skin of nose Dr. Chowdary in [place] Stage 3a chronic kidney disease (HCC) Venous [...] not taking: Reported on 12/19/2023) CPAP AutoPAP [id number]. Mask per preference, tubing, filters, humidity. Lifetime Supplies. Dx: G47.33. Fax 30 day compliance report to [phone]. CPAP Please provide mask fitting. Pt with [...] red stre (more content not included)... Normal [facility] 02-08-2024 CNPN Telephone ([facility]) -- FRAN PAREKH ([id number]) 1945 M Date Time Provider Department 02/08/24 PODLOGAR, MARILIA CARDOZA During your visit today, we recorded the following information about you: Sissy Abbott LPN 02/08/2024 10:02 AM Signed Pt calling for an appt to hillary right lower leg cellulitis. Pt states area has improved, only has slight redness AND he would like it recked. Pt reports pain is gone. Pt requesting appt with Binder Roller Podlogar. 1st avial with her is 02/14/24, [...] hour before dental procedure. - CPAP AutoPAP [id number]. Mask per preference, tubing, filters, humidity. Lifetime Supplies. Dx: G47.33. Fax 30 day compliance report to [phone]. - CPAP Please provide mask fitting. Pt [...] 03/25/2009 Open fracture of distal phalangeal tuft [VEN027*08/31/2011 05/09/2014 Internal derangement of right knee [M23.91] [...] 05/15/2023 Ac (more content not included)... 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 PROMINENT PREPATELLAR BURSITIS. MILD OSTEOARTHRITIS. Storage Worker: [employer] Transcribe Date/Time: Jan 26 2024 1:16P [...] of skin of nose Dr. Chowdary in [place] Stage 3a chronic kidney disease (HCC) Venous [...] Take 1 (more content not included)... Normal [facility] MR Knee - right WO contrasto n 01-27-2024 IMPRESSION: MEDIAL MENISCUS TEAR WITH A COMPONENT DISPLACED/EXTRUDED TOWARDS THE INFEROMEDIAL GUTTER. PROMINENT PREPATELLAR BURSITIS. MILD OSTEOARTHRITIS. Storage Worker: WILNER Transcribe Date/Time: Jan 26 2024 1:16P Dictated by : CHELSEA CASTILLO MD This examination was interpreted and the report reviewed and electronically signed by: CHELSEA CASTILLO MD on Jan 27 2024 3:42PM [facility] DIVISION OF RADIOLOGY * * *Final Report* [...] Localizer images: Unremarkable. 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 PROMINENT PREPATELLAR BURSITIS. MILD OSTEOARTHRITIS. Storage Worker: [facility] Transcribe Date/Time: Jan 26 2024 1:16P Dictated by : CHELSEA CASTILLO MD This examination was interpreted and the report reviewed and electronically signed by: CHELSEA CASTILLO MD on Jan 27 2024 3:42PM [facility] MR Knee - right WO contrastO rdered By: Ccf Provider on 01-27-2024 [facility] Basic Metabolic Profile (BMP )on 01-26-2024 BUN/CRE 14.4 RATIO Normal 10-20 [facility] Comment on above: Performed By: #### L 503.6005, L500.2500, L100.0500 ####[facility] [address] [place], [address] CA,Total 9.2 mg/dL Normal 8.5-10.1 [facility] Comment on above: Performed By: #### L 503.6005, L500.2500, L100.0500 ####[facility] [address] [place], [address] Chloride [Moles/Vol] 108 mmol/L High 98-107 [facility] Comment on above: Performed By: #### L 503.6005, L500.2500, L100.0500 ####[facility] [address] [place], [address] CO2 [Moles/Vol] 27.0 mmol/L Normal 21.0-32.0 [facility] Comment on above: Performed By: #### L 503.6005, L500.2500, L100.0500 ####[facility] [address] [place], [address] Creatinine [Mass/Vol] 1.53 mg/dL High 0.70-1.30 [facility] Comment on above: Result Comment: The validity of the calculated GFR GFRAA in patients over70 years has not been determined. Clinical correlation isessential. Performed By: #### L 503.6005, L500.2500, L100.0500 ####[facility] [address] [place], [address] ECRCL 54.51 ml/min Normal [facility] Comment on above: Performed By: #### L 503.6005, L500.2500, L100.0500 ####[facility] [address] [place], [address] EST GFR - AA 57 mL/min Low >60 [facility] Comment on above: Result Comment: Afri can Swazi GFR Calc Performed By: #### L 503.6005, L500.2500, L100.0500 ####[facility] [address] [place], [address] GAP 6 Normal 5-15 [facility] Comment on above: Performed By: #### L 503.6005, L500.2500, L100.0500 ####[facility] [address] [place], [address] GFR/1.73 sq M.predicted among non-blacks MDRD (S/P/Bld) [Vol rate/Area] 47 mL/min/{1.73_m2} Low >60 [facility] Comment on above: Result Comment: Non- GFR Calc Performed By: #### L 503.6005, L500.2500, L100.0500 ####[facility] [address] [place], [address] Glucose [Mass/Vol] 125 mg/dL High 74-106 [facility] Comment on above: Result Comment: Fast ing Glucose result from 100 to 125 mg/dLsuggests IMPAIRED HOMEOSTASIS per A.D.A. criteria. Performed By: #### L 503.6005, L500.2500, L100.0500 ####[facility] [address] [place], [address] Potassium [Moles/Vol] 3.6 mmol/L Normal 3.5-5.1 [facility] Comment on above: Performed By: #### L 503.6005, L500.2500, L100.0500 ####[facility] [address] [place], [address] Sodium [Moles/Vol] 140 mmol/L Normal 136-145 [facility] Comment on above: Performed By: #### L 503.6005, L500.2500, L100.0500 ####[facility] [address] [place], [address] Urea nitrogen [Mass/Vol] 22 mg/dL High 7-18 [facility] Comment on above: Performed By: #### L 503.6005, L500.2500, L100.0500 ####[facility] [address] [place], [address] CBC-Complete Blood Cnt No Di ffon 01-26-2024 Erythrocyte distribution width (RBC) [Ratio] 13.4 % Normal 11.6-14.6 [facility] Comment on above: Performed By: #### L 503.6005, L500.2500, L100.0500 ####[facility] [address] [place], [address] Hematocrit (Bld) [Volume fraction] 44.4 % Normal 40-54 [facility] Comment on above: Performed By: #### L 503.6005, L500.2500, L100.0500 ####[facility] [address] [place], [address] Hemoglobin (Bld) [Mass/Vol] 14.7 g/dL Normal 13.0-16.5 [facility] Comment on above: Performed By: #### L 503.6005, L500.2500, L100.0500 ####[facility] [address] [place], [address] MCH (RBC) [Entitic mass] 31.5 pg Normal 27.0-32.0 [facility] Comment on above: Performed By: #### L 503.6005, L500.2500, L100.0500 ####[facility] [address] [place], [address] MCHC (RBC) [Mass/Vol] 33.1 g/dL Normal 32-36 [facility] Comment on above: Performed By: #### L 503.6005, L500.2500, L100.0500 ####[facility] [address] [place], [address] MCV (RBC) [Entitic vol] 95.3 fL High 80-94 [facility] Comment on above: Performed By: #### L 503.6005, L500.2500, L100.0500 ####[facility] [address] [place], [address] Platelet mean volume (Bld) [Entitic vol] 8.7 fL Normal 6.2-12.0 [facility] Comment on above: Performed By: #### L 503.6005, L500.2500, L100.0500 ####[facility] [address] [place], [address] Platelets (Bld) [#/Vol] 282 10*3/uL Normal 150-450 [facility] Comment on above: Performed By: #### L 503.6005, L500.2500, L100.0500 ####[facility] [address] [place], [address] RBC (Bld) [#/Vol] 4.66 10*6/uL Normal 4.6-6.2 [facility] Comment on above: Performed By: #### L 503.6005, L500.2500, L100.0500 ####[facility] [id number] [place], [address] RDW SD 47.0 fl High 35.1-43.9 [facility] Comment on above: Performed By: #### L 503.6005, L500.2500, L100.0500 ####[facility] [id number] [place], [address] WBC (Bld) [#/Vol] 10.7 10*3/uL Normal 4.4-11.0 [facility] Comment on above: Performed By: #### L 503.6005, L500.2500, L100.0500 ####[facility] [address] [place], [address] Emergency Department Summary on 01-26-2024 Emergency Department Summary Normal [facility] Lactic Acidon 01-26-2024 Lactate [Moles/Vol] 1.8 mmol/L Normal 0.4-1.9 [facility] Comment on above: Order Comment: Y Performed By: #### L 503.6005, L500.2500, L100.0500 ####[facility] [address] 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 PROMINENT PREPATELLAR BURSITIS. MILD OSTEOARTHRITIS. Storage Worker: WILNER Transcribe Date/Time: Jan 26 2024 1:16P Dictated by : CHELSEA CASTILLO MD This examination was interpreted and the report reviewed and electronically signed by: CHELSEA CASTILLO MD on Jan 27 2024 3:42PM EST [id number] Normal [facility] CNOVon 01-24-2024 CNOV Office Visit (FAMPWS ) -- FRAN PAREKH ([id number]) 1945 M Date Time Provider Department 01/24/24 12:40 PM LASHANDALOGARMARILIA During your visit today, we recorded the following information about you: Temperature Pulse Respiration Blood pressure 98.2 degrees 81/minute 16/minute 134/90 Weight 130.1 kg Marilia Orozco APRN.VP CUSTOMER SERVICE 01/24/2024 1:38 PM Signed 01/24/2024 Patient presents [...] of skin of nose Dr. Chowdary in [place] Stage 3a chronic kidney disease (HCC) Venous [...] not taking: Reported on 12/19/2023) CPAP AutoPAP [id number]. Mask per preference, tubing, filters, humidity. Lifetime Supplies. Dx: G47.33. Fax 30 day compliance report to [phone]. CPAP Please provide mask fitting. Pt with [...] LEG. 2 (more content not included)... Normal [facility] CNOVon 01-22-2024 CNOV Office Visit (FAMPWS ) -- FRAN PAREKH ([id number]) 1945 M Date Time Provider Department 01/22/24 [...] of skin of nose Dr. Chowdary in [place] Stage 3a chronic kidney disease (HCC) Venous insufficiency Previous Surgical History PAST SURGICAL HISTORY Procedure Laterality Date ARTHRP ACETBLR/PROX FEM PROSTC AGRFT/ALGRFT Right 06/03/2019 Hip replacement, total COLONOSCOPY FLX DX W/COLLJ SPEC WHEN PFRMD 04/21/11 Repeat 10 [id number] LASER GREENLIGHT prostate, [place] NEUROPLASTY AND/TRANSPOS MEDIAN [...] AN EMPTY STOMACH FOR THYROID CPAP AutoPAP [id number]. Mask per preference, tubing, filters, humidity. Lifetime Supplies. Dx: G47.33. Fax 30 day compliance report to [phone]. CPAP Please provide mask fitting. Pt with [...] Take f (more content not included)... Normal [facility] 01-22-2024 [facility] FRAN PAREKH ([id number]) 1945 M Date Time Provider Department 01/22/24 [...] hour before dental procedure. - CPAP AutoPAP 10-45ffG1A. Mask per preference, tubing, filters, humidity. Lifetime Supplies. Dx: G47.33. Fax 30 day compliance report to [phone]. - CPAP Please provide mask fitting. Pt [...] 03/25/2009 Open fracture of distal phalangeal tuft [NFG312*08/31/2011 05/09/2014 Internal derangement of right knee [M23.91] [...] vei*10/23/2023 Ac (more content not included)... Normal [facility] CBC W Auto Differential pane l (Bld)on 01-19-2024 Basophils (Bld) [#/Vol] 0.04 10*3/uL [facility] Basophils/100 WBC (Bld) 0.4 % [facility] Differential cell count method Nom (Bld) Auto [facility] Eosinophils (Bld) [#/Vol] 0.20 10*3/uL [facility] Eosinophils/100 WBC (Bld) 1.9 % [facility] Erythrocyte distribution width (RBC) [Ratio] 13.6 % 11.5 - 15.0 % [facility] Hematocrit (Bld) [Volume fraction] 44.2 % 39.0 - 51.0 % [facility] Hemoglobin (Bld) [Mass/Vol] 14.5 g/dL 13.0 - 17.0 g/dL [facility] Immature granulocytes (Bld) [#/Vol] 0.03 10*3/uL [facility] Immature granulocytes/100 WBC (Bld) 0.3 % [facility] Interpretation and review of laboratory results Abnormal [facility] Lymphocytes (Bld) [#/Vol] 2.23 10*3/uL [facility] Lymphocytes/100 WBC (Bld) 21.6 % [facility] MCH (RBC) [Entitic mass] 31.7 pg 26.0 - 34.0 pg [facility] MCHC (RBC) [Mass/Vol] 32.8 g/dL 30.5 - 36.0 g/dL [facility] MCV (RBC) [Entitic vol] 96.7 fL 80.0 - 100.0 fL [facility] Monocytes (Bld) [#/Vol] 1.03 10*3/uL High [facility] Monocytes/100 WBC (Bld) 10.0 % [facility] Neutrophils (Bld) [#/Vol] 6.78 10*3/uL [facility] Neutrophils/100 WBC (Bld) 65.8 % [facility] Nucleated RBC (Bld) [#/Vol] [facility] Nucleated RBC/100 WBC (Bld) [Ratio] 0.0 % /100 WBC [facility] Platelet mean volume (Bld) [Entitic vol] 10.2 fL 9.0 - 12.7 fL [facility] Platelets (Bld) [#/Vol] 255 10*3/uL [facility] RBC (Bld) [#/Vol] 4.57 10*6/uL 4.20 - 6.0 0 m/uL [facility] WBC (Bld) [#/Vol] 10.31 10*3/uL [facility] Basophils (Bld) [#/Vol] 0.04 10*3/uL Normal <0.11 [facility] Comment on above: Order Comment: Speci men Type: BLOOD SPECIMENOrdering Facility: [facility] Address: [address] [place] [address] Performed By: #### 5 7021-8 ####[facility] LABCLIA [id number] [place] [address] [place] Basophils/100 WBC (Bld) 0.4 % Normal [facility] Comment on above: Order Comment: Speci men Type: BLOOD SPECIMENOrdering Facility: [facility] Address: [address] [place] [address] Performed By: #### 5 7021-8 ####[facility] LABCLIA [id number] [place] [address] [place] Differential cell count method Nom (Bld) Auto Normal [facility] Comment on above: Order Comment: Speci men Type: BLOOD SPECIMENOrdering Facility: [facility] Address: [address] [place] [address] Performed By: #### 5 7021-8 ####[facility] LABCLIA [id number] [place] [address] [place] Eosinophils (Bld) [#/Vol] 0.20 10*3/uL Normal <0.46 [facility] Comment on above: Order Comment: Speci men Type: BLOOD SPECIMENOrdering Facility: [facility] Address: [address] [place] [address] Performed By: #### 5 7021-8 ####[facility] LABCLIA [id number] [place] [address] [place] Eosinophils/100 WBC (Bld) 1.9 % Normal [facility] Comment on above: Order Comment: Speci men Type: BLOOD SPECIMENOrdering Facility: [facility] Address: [address] [place] [address] Performed By: #### 5 7021-8 ####[facility] LABIA [id number] [place] [address] [place] Erythrocyte distribution width (RBC) [Ratio] 13.6 % Normal 11.5-15.0 [facility] Comment on above: Order Comment: Speci men Type: BLOOD SPECIMENOrdering Facility: [facility] Address: [address] [place] [address] Performed By: #### 5 7021-8 ####[facility] LABIA [id number] [place] [address] [place] Hematocrit (Bld) [Volume fraction] 44.2 % Normal 39.0-51.0 [facility] Comment on above: Order Comment: Speci men Type: BLOOD SPECIMENOrdering Facility: [facility] Address: [address] [place] [address] Performed By: #### 5 7021-8 ####[facility] LABCLIA [id number] [place] [address] [place] Hemoglobin (Bld) [Mass/Vol] 14.5 g/dL Normal 13.0-17.0 [facility] Comment on above: Order Comment: Speci men Type: BLOOD SPECIMENOrdering Facility: [facility] Address: [address] [place] [address] Performed By: #### 5 7021-8 ####[facility] LABIA [id number] [place] [address] [place] Immature granulocytes (Bld) [#/Vol] 0.03 10*3/uL Normal <0.10 [facility] Comment on above: Order Comment: Speci men Type: BLOOD SPECIMENOrdering Facility: [facility] Address: [address] [place] [address] Performed By: #### 5 7021-8 ####[facility] LABCLIA [id number] [place] [address] [place] Immature granulocytes/100 WBC (Bld) 0.3 % Normal [facility] Comment on above: Order Comment: Speci men Type: BLOOD SPECIMENOrdering Facility: [facility] Address: [address] [place] [address] Performed By: #### 5 7021-8 ####[facility] LABCLIA [id number] [place] [address] [place] Lymphocytes (Bld) [#/Vol] 2.23 10*3/uL Normal 1.00-4.00 [facility] Comment on above: Order Comment: Speci men Type: BLOOD SPECIMENOrdering Facility: [facility] Address: [address] [place] [address] Performed By: #### 5 7021-8 ####[facility] LABCLIA [id number] [place] [address] [place] Lymphocytes/100 WBC (Bld) 21.6 % Normal [facility] Comment on above: Order Comment: Speci men Type: BLOOD SPECIMENOrdering Facility: [facility] Address: [address] [place] [address] Performed By: #### 5 7021-8 ####[facility] LABCLIA [id number] [place] [address] [place] MCH (RBC) [Entitic mass] 31.7 pg Normal 26.0-34.0 [facility] Comment on above: Order Comment: Speci men Type: BLOOD SPECIMENOrdering Facility: [facility] Address: [address] [place] [address] Performed By: #### 5 7021-8 ####[facility] LABCLIA [id number] [place] [address] [place] MCHC (RBC) [Mass/Vol] 32.8 g/dL Normal 30.5-36.0 [facility] Comment on above: Order Comment: Speci men Type: BLOOD SPECIMENOrdering Facility: [facility] Address: [address] [place] [address] Performed By: #### 5 7021-8 ####[facility] LABCLIA [id number] [place] [address] [place] MCV (RBC) [Entitic vol] 96.7 fL Normal 80.0-100.0 [facility] Comment on above: Order Comment: Speci men Type: BLOOD SPECIMENOrdering Facility: [facility] Address: [address] [place] [address] Performed By: #### 5 7021-8 ####[facility] LABCLIA [id number] [place] [address] [place] Monocytes (Bld) [#/Vol] 1.03 10*3/uL High <0.87 [facility] Comment on above: Order Comment: Speci men Type: BLOOD SPECIMENOrdering Facility: [facility] Address: [address] [place] [address] Performed By: #### 5 7021-8 ####[facility] LABCLIA [id number] [place] [address] [place] Monocytes/100 WBC (Bld) 10.0 % Normal [facility] Comment on above: Order Comment: Speci men Type: BLOOD SPECIMENOrdering Facility: [facility] Address: [address] [place] [address] Performed By: #### 5 7021-8 ####[facility] LABCLIA [id number] [place] [address] [place] Neutrophils (Bld) [#/Vol] 6.78 10*3/uL Normal 1.45-7.50 [facility] Comment on above: Order Comment: Speci men Type: BLOOD SPECIMENOrdering Facility: [facility] Address: [address] [place] [address] Performed By: #### 5 7021-8 ####[facility] LABCLIA [id number] [place] [address] [place] Neutrophils/100 WBC (Bld) 65.8 % Normal [facility] Comment on above: Order Comment: Speci men Type: BLOOD SPECIMENOrdering Facility: [facility] Address: [address] [place] [address] Performed By: #### 5 7021-8 ####[facility] LABCLIA [id number] [place] [address] [place] Nucleated RBC (Bld) [#/Vol] 10*3/uL Normal <0.01 [facility] Comment on above: Order Comment: Speci men Type: BLOOD SPECIMENOrdering Facility: [facility] Address: [address] [place] [address] Performed By: #### 5 7021-8 ####[facility] LABCLIA [id number] [place] [address] [place] Nucleated RBC/100 WBC (Bld) [Ratio] 0.0 /100 WBC Normal [facility] Comment on above: Order Comment: Speci men Type: BLOOD SPECIMENOrdering Facility: [facility] Address: [address] [place] [address] Performed By: #### 5 7021-8 ####[facility] LABCLIA [id number] [place] [address] [place] Platelet mean volume (Bld) [Entitic vol] 10.2 fL Normal 9.0-12.7 [facility] Comment on above: Order Comment: Speci men Type: BLOOD SPECIMENOrdering Facility: [facility] Address: [address] [place] [address] Performed By: #### 5 7021-8 ####[facility] LABIA [id number] [place] [address] [place] Platelets (Bld) [#/Vol] 255 10*3/uL Normal 150-400 [facility] Comment on above: Order Comment: Speci men Type: BLOOD SPECIMENOrdering Facility: [facility] Address: [address] [place] [address] Performed By: #### 5 7021-8 ####[facility] LABIA [id number] [place] [address] [place] RBC (Bld) [#/Vol] 4.57 10*6/uL Normal 4.20-6.00 [facility] Comment on above: Order Comment: Speci men Type: BLOOD SPECIMENOrdering Facility: [facility] Address: [address] [place] [address] Performed By: #### 5 7021-8 ####[facility] LABIA [id number] [place] [address] [place] WBC (Bld) [#/Vol] 10.31 10*3/uL Normal 3.70-11.00 [facility] Comment on above: Order Comment: Speci men Type: BLOOD SPECIMENOrdering Facility: [facility] Address: [address] [place] [address] Performed By: #### 5 7021-8 ####[facility] LABIA [id number] [place] [address] [place] CNOVon 01-19-2024 CNOV Office Visit (FAMPWS ) -- IGLESIAFRAN ([id number]) 1945 M Date Time Provider Department 01/19/24 9:40 AM MARILIA OROZCO During your visit today, we recorded the following information about you: Temperature Pulse Respiration Blood pressure 98 degrees 84/minute 18/minute 132/94 Weight 128 kg LashandalogMarilia stuart APRN.VP CUSTOMER SERVICE 01/29/2024 8:11 AM Signed 01/19/2024 Patient presents [...] ice RADIATION: knee down to landry Saw production intern yesterday who ordered an xray which has [...] of skin of nose Dr. Chowdary in [place] Stage 3a chronic kidney disease (HCC) Venous [...] not taking: Reported on 12/19/2023) CPAP AutoPAP [id number]. Mask per preference, tubing, filters, humidity. Lifetime Supplies. Dx: G47.33. Fax 30 day compliance report to [phone]. CPAP Please provide mask fitting. Pt with [...] Never done (more content not included)... Normal [facility] US DVT LOWER RTon 01-19-2024 US [...] of unclear etiology. Clinical correlation is recommended. Storage Worker: [facility] Transcribe Date/Time: Jan 19 2024 6:56P Dictated by : DANIELLE VILLASENOR MD This examination was interpreted and the report reviewed and electronically signed by: DANIELLE VILLASENOR MD on Jan 19 2024 6:58PM EST [id number] [facility] Lower extremity vein - ri luis 01-19-2024 IMPRESSION: Negative study for proximal DVT in the right lower extremity. Negative study for calf DVT in the right lower extremity. Negative study for superficial thrombophlebitis in the imaged segments of the right lower extremity. Moderate right lower extremity edema of unclear etiology. Clinical correlation is recommended. Storage Worker: [facility] Transcribe Date/Time: Jan 19 2024 6:56P Dictated by : DANIELLE VILLASENOR MD This examination was interpreted and the report reviewed and electronically signed by: DANIELLE VILLASENOR MD on Jan 19 2024 6:58PM [facility] * * *Final Report* * * DATE OF EXAM: Jan 19 2024 6:45PM MSRachel 1007 - US DVT LOWER RT / [...] spontaneous respirophasic flow. Normal response to augmentation. [facility] Provider, [facility] - 01/19/2024 * * *Final Report* [...] of unclear etiology. Clinical correlation is recommended. Storage Worker: [facility] Transcribe Date/Time: Jan 19 2024 6:56P Dictated by : DANIELLE VILLASENOR MD This examination was interpreted and the report reviewed and electronically signed by: DANIELLE VILLASENOR MD on Jan 19 2024 6:58PM EST [facility] Radiology Study observation (narrative) [facility] US Lower extremity vein - ri ghtOrdered By: Priscilla Provider on 01-19-2024 [facility] CNOVon 01-18-2024 CNOV Office Visit (UCWSTR ) -- FRAN PAREKH ([id number]) 1945 M Date Time Provider Department 01/18/24 12:00 PM JOLEEN MUNOZ [facility] During your visit today, we recorded the following information about you: Temperature Pulse Respiration Blood pressure 97.4 degrees 79/minute 18/minute 126/76 Weight 130.2 kg Joleen Munoz APRN.VP CUSTOMER SERVICE 01/18/2024 12:13 PM Signed Patient is seen [...] hour before dental procedure. - CPAP AutoPAP [id number]. Mask per preference, tubing, filters, humidity. Lifetime Supplies. Dx: G47.33. Fax 30 day compliance report to [phone]. - CPAP Please provide mask fitting. Pt [...] 03/25/2009 Open fracture of distal phalangeal tuft [TSI663*08/31/2011 05/09/2014 Internal derangement of right knee [M23.91] [...] embolism wit (more content not included)... Normal [facility] CN Office Visit (PUFAMO ) -- FRAN PAREKH ([id number]) 1945 M Date Time Provider Department 01/18/24 [...] STOMACH FOR THYROIDDisp: 90 tabletRfl: 3 CPAPAutoPAP [id number]. Mask per preference, tubing, filters, humidity. Lifetime Supplies. Dx: G47.33. Fax 30 day compliance report to [phone].Disp: 1 EachRfl: 999 CPAPPlease provide mask fitting. [...] of skin of nose Dr. Chowdary in [place] Stage 3a chronic kidney disease (HCC) Venous insufficiency PAST SURGICAL HISTORY Procedure Laterality Date ARTHRP ACETBLR/PROX FEM PROSTC AGRFT/ALGRFT Right 06/03/2019 Hip replacement, total COLONOSCOPY FLX DX W/COLLJ SPEC WHEN PFRMD 04/21/11 Repeat 10 [id number] LASER GREENLIGHT prostate, [place] NEUROPLASTY AND/TRANSPOS MEDIAN NRV CARPAL TUNNE Left 01/17/2020 Left carpal tunnel release NEUROPLASTY AND/TRANSPOS MEDIAN NRV CARPAL TUNNE Right 03/04/2020 Right carpal tunnel release RPR UMBILICAL HRNA 5 YRS/> REDUCIBLE TONSILLECTOMY PRIMARY/SECONDARY Tonsillectomy FAMILY HISTORY Problem Relation Age of Onset Heart Mother other (Myoc (more content not included)... Normal [facility] XR KNEE 4V AP/PA BOTH+LAT/ME R [...] No fracture or joint effusion. IMPRESSION: Osteoarthrosis Storage Worker: [facility] Transcribe Date/Time: Jan 20 2024 7:28A Dictated by : ALEXANDER LUNDBERG MD This examination was interpreted and the report reviewed and electronically signed by: ALEXANDER LUNDBERG MD on Jan 20 2024 7:29AM EST [id number] Normal [facility] [id number] 01-17-2024 [id number] HNO ID: [id number] Author: YOGESH FORMAN PT Service: ? Author Type: Physical Therapist Type: [id number] Filed: 01/17/2024 23:01 Note Text: [facility] Rehabilitation and Sports Therapy Physical Therapy Plan of Care Certification Patient Name: Fran Parekh : 1945 CC #: [id number] Date: 01/17/2024 To: Agnes Diaz,* From Therapist: [...] fall risk. - Partially MET, will continue [place] in home exercise program including cardiovascular exercise. [...] Patient to be seen for Therapeutic exercise (92903), Neuromuscular re-education (76143), Therapeutic activities (54531), Self-long-term management (05019), Gait Training (70015), Patient/Family/Caregiver Education, Body Mechanics Training, General Conditioning PLAN FOR NEXT VISIT: Continue with balance training, gait training, and LE functional strengthening. For further details regarding this patient refer to the Physical Therapy electronically documented visit dated 01/17/2024. Provider Attestation I have reviewed the treatment plan for Fran Parekh, [facility]# [id number] for the period of 01/17/24 -- 02/14/24, established on 01/17/2024. Signature certifies the need for therapy services. Normal [facility] CNTHERAPYon 01-17-2024 CNTHERAPY OT/PT/Speech Visit ( PTWS) -- FRAN PAREKH ([id number]) 1945 M Date Time Provider Department 01/17/24 3:15 PM YOGESH FORMAN PTWS Date Time Provider Department Center 01/17/2024 3:15 PM [id number], [facility] PTWS Mli Singletary Reason for Visit: Physical Therapy [503] PT Progress Note [0846] Primary Visit Diagnosis:Unsteady gait [R26.81] Allergies As [...] hour before dental procedure. - CPAP AutoPAP [id number]. Mask per preference, tubing, filters, humidity. Lifetime Supplies. Dx: G47.33. Fax 30 day compliance report to [phone]. - CPAP Please provide mask fitting. Pt [...] % (flush) 10 mL (BD POSIFLUSH) Normal [facility] CNOVon 01-16-2024 CNOV Office Visit (CARDMM ) -- FRAN PAREKH ([id number]) 1945 M Date Time Provider Department 01/16/24 1:00 PM ECHOCARDIOGRAM JAYJAY LANGSTON During your visit today, we recorded the following information about you: Referring Provider: VICTOR MANUEL SAVAGE [[id number]] Allergies As of Date: 01/16/2024 Noted Allergy Reaction NORVASC (AMLODIPINE BESYLATE) 09/14/2016 7 - Swelling Comments: pedal edema VENOM-WASP 01/14/2005 7 - Swelling ZITHROMAX (AZITHROMYCIN) 01/14/2005 9 - Itching Date Reviewed: 01/16/2024 Reviewed by: Sonya Noriega RN - Fully Assessed Visit Diagnoses: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 - CPAP AutoPAP [id number]. Mask per preference, tubing, filters, humidity. Lifetime Supplies. Dx: G47.33. Fax 30 day compliance report to [phone]. - CPAP Please provide mask fitting. Pt [...] 03/25/2009 Open fracture of distal phalangeal tuft [BMT527*08/31/2011 05/09/2014 Internal derangement of right knee [M23.91] [...] RVF (right (more content not included)... Normal [facility] ECHOon 01-16-2024 CONCLUSIONS: - Technically difficult [...] [facility] Echocardiography Report: Transthoracic Echo [facility] Office Date of service: 01/16/2024 1:10:40 PM GENERATING MACHINE TENDER Ordering physician: VICTOR MANUEL SAVAGE Indication: H/O [...] or not interrogated. [facility] Echocardiography Echocardiography Rep ort: Transthoracic Echo [facility] Office Date of service: 01/16/2024 1:10:40 PM GENERATING MACHINE TENDER Ordering physician: VICTOR MANUEL SAVAGE Indication: H/O [...] * * Final * * * CC [employer] [facility] Image : [id number] Normal [facility] 01-10-2024 CNPN Telephone (FAMPWS) -- FRAN PAREKH ([id number]) 1945 M Date Time Provider Department 01/10/24 AGNES DIAZ [facility] During your visit today, we recorded [...] 01/11/2024 3:43 PM Signed CD READY FOR FLAT SURFACER AT [facility] for pt [...] hour before dental procedure. - CPAP AutoPAP [id number]. Mask per preference, tubing, filters, humidity. Lifetime Supplies. Dx: G47.33. Fax 30 day compliance report to [phone]. - CPAP Please provide mask fitting. Pt [...] 03/25/2009 Open fracture of distal phalangeal tuft [[id number]*08/31/2011 05/09/2014 Internal derangement of right knee [M23.91] [...] (HCC) [N18.3 (more content not included)... Normal [facility] CNTHERAPYon 01-10-2024 CNTHERAPY OT/PT/Speech Visit ( PTWS) -- FRAN PAREKH ([id number]) 1945 M Date Time Provider Department 01/10/24 10:00 AM YOGESH FORMAN PTWS Date Time Provider Department Center 01/10/2024 10:00 AM [id number], BRENT PTWS Mil Singletary Reason for Visit: [...] hour before dental procedure. - CPAP AutoPAP [id number]. Mask per preference, tubing, filters, humidity. Lifetime Supplies. Dx: G47.33. Fax 30 day compliance report to [phone]. - CPAP Please provide mask fitting. Pt [...] % (flush) 10 mL (BD POSIFLUSH) Normal [facility] CNTHERAPYon 01-08-2024 CNTHERAPY OT/PT/Speech Visit ( PTWS) -- FRAN PAREKH ([id number]) 1945 M Date Time Provider Department 01/08/24 9:30 AM TABBY GIBBS PTWS Date Time Provider Department Center 01/08/2024 9:30 AM [id number] GIBBS Mil Joselin Reason for Visit: Physical [...] hour before dental procedure. - CPAP AutoPAP [id number]. Mask per preference, tubing, filters, humidity. Lifetime Supplies. Dx: G47.33. Fax 30 day compliance report to [phone]. - CPAP Please provide mask fitting. Pt [...] % (flush) 10 mL (BD POSIFLUSH) Normal [facility] CNTHERAPYon 01-04-2024 CNTHERAPY OT/PT/Speech Visit ( PTWS) -- FRAN PAREKH ([id number]) 1945 M Date Time Provider Department 01/04/24 3:45 PM YOGESH FORMAN PTWS Date Time Provider Department Center 01/04/2024 3:45 PM [id number], BRENT PTWS Mil Singletary Reason for Visit: [...] hour before dental procedure. - CPAP AutoPAP [id number]. Mask per preference, tubing, filters, humidity. Lifetime Supplies. Dx: G47.33. Fax 30 day compliance report to [phone]. - CPAP Please provide mask fitting. Pt [...] % (flush) 10 mL (BD POSIFLUSH) Normal [facility] CNOVon 12-19-2023 CNOV Office Visit (VASMST ) -- FRAN PAREKH ([id number]) 1945 M Date Time Provider Department 12/19/23 2:30 PM SIDRA GÓMEZ During your visit today, we recorded the following information about you: Pulse Blood pressure Weight 70/minute 145/82 129.7 kg Sidra Gómez MD 12/19/2023 4:30 PM Signed [facility] Alonso Department of Cardiovascular Medicine SECTION [...] 85 , intermediate risk) and acute right Mrm-Owu-padq DVT (10/23/2023) treated with medical management, and pulmonary hypertension. He was discharged on Eliquis, which currently takes. Patient follows with pulmonology (Victor Manuel Savage, ) for pulmonary hypertension.Last visit 11/09/2023; recommended VQ scan and repeat echocardiogram. Prior to the diagnosis patient reported no hospitalizations, surgeries, long travels, immobilization or trauma. Patient's reports patient had swelling in both legs during his travel to [place] in May 2023. He had no chest discomfort or SOB. Patient adds he has had swelling in the legs ever since hip surgery in 2019. He underwent venous incompetency study in 12/2020 and found reflux in both GSV. He was recommended to wear compression stockings. Referred to vascular medicine for consideration of hypercoagulable workup History of thrombosis: as above, otherwise, History of CVA/TIA/OH: no Current or prior use of hormonal [...] before dental procedure.Disp: 4 capsuleRfl: 3 CPAPAutoPAP [id number]. Mask per preference, tubing, filters, humidity. Lifetime Supplies. Dx: G47.33. Fax 30 day compliance report to [phone].Disp: 1 EachRfl: 999 CPAPPlease provide mask fitting. [...] adult, Diverticul (more content not included)... Normal [facility] [id number] 12-18-2023 [id number] HNO ID: [id number] Author: YOGESH FORMAN PT Service: ? Author Type: Physical Therapist Type: [id number] Filed: 12/18/2023 23:52 Note Text: [facility] Rehabilitation and Sports Therapy Physical Therapy Plan of Care Certification Patient Name: Fran Parekh : 1945 [facility] #: [id number] Date: 12/18/2023 To: Agnes Diaz,* From Therapist: [...] second SLS to reflect decreased fall risk. [place] in home exercise program including cardiovascular exercise. [...] Planned: 16 Planned Treatment Interventions: Therapeutic exercise (72190), Neuromuscular re-education (51102), Therapeutic activities (20040), Self-long-term management (50515), Gait Training (04078), Patient/Family/Caregiver Education, Body Mechanics Training, Functional training, [...] reviewed the treatment plan for Fran Parekh, [facility]# [id number] for the period of 12/18/23 -- 02/12/24, established on 12/18/2023. Signature certifies the need for therapy services. Normal [facility] CNTHERAPYon 12-18-2023 CNTHERAPY OT/PT/Speech Visit ( PTWS) -- FRAN PAREKH ([id number]) 1945 M Date Time Provider Department 12/18/23 8:30 AM YOGESH FORMAN PTAIDA Date Time Provider Department Center 12/18/2023 8:30 AM [id number], BRENT PTAIDA Singletary Reason for Visit: PT [...] hour before dental procedure. - CPAP AutoPAP [id number]. Mask per preference, tubing, filters, humidity. Lifetime Supplies. Dx: G47.33. Fax 30 day compliance report to [phone]. - CPAP Please provide mask fitting. Pt [...] % (flush) 10 mL (BD POSIFLUSH) Normal [facility] -- IGLESIAFRAN ([id number]) 1945 M Date Time Provider Department 11/27/23 SIDRA GÓMEZ During your visit today, we recorded the following information about you: Anitra Fong 11/27/2023 10:01 AM Signed Patient called and stated that his production intern wants him to be seen CASSY and asked if Dr. Pepe can see him sooner than March. Please advise Halie Perez LPN 11/27/2023 10:16 AM Addendum Message forwarded to the [facility] clerical pool for assistance with scheduling. Halie [...] hour before dental procedure. - CPAP AutoPAP [id number]. Mask per preference, tubing, filters, humidity. Lifetime Supplies. Dx: G47.33. Fax 30 day compliance report to [phone]. - CPAP Please provide mask fitting. Pt [...] 03/25/2009 Open fracture of distal phalangeal tuft [[id number]*08/31/2011 05/09/2014 Internal derangement of right knee [M23.91] [...] 10/24/2023 Pulmon (more content not included)... Normal [facility] NM LUNG VENT / PERF VQon [...] defects corresponding to prior known pulmonary embolism. 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 Storage Worker: [facility] Transcribe Date/Time: Nov 22 2023 2:12P Dictated by : SHELBY KELLER MD This examination was interpreted and the report reviewed and electronically signed by: SHELBY KELLER MD on Nov 22 2023 2:18PM EST [facility] * * *Final Report* * * [...] Bilateral few mismatched defects. Few matched defects. [facility] Provider, Priscilla Rodgers - 11/22/2023 * [...] defects corresponding to prior known pulmonary embolism. Storage Worker: [facility] Transcribe Date/Time: Nov 22 2023 2:12P Dictated by : SHELBY KELLER MD This examination was interpreted and the report reviewed and electronically signed by: SHELBY KELLER MD on Nov 22 2023 2:18PM EST [facility] Radiology Study observation (narrative) [facility] NM Lung Ventilation and Perf usionOrdered By: [facility] Provider on 11-22-2023 [facility] CNOVon 11-09-2023 CNOV Office Visit (PUFAMO ) -- FRAN PAREKH ([id number]) 1945 M Date Time Provider Department 11/09/23 [...] exertion for the prior week or so. [place] acute shortness of breath and severe lightheadedness [...] of skin of nose Dr. Chowdary in [place] Stage 3a chronic kidney disease (HCC) Venous insufficiency HTN DM Type 2 Pulmonary Embolism/DVT Lung Nodules Social History Leads sedentary lifestyle getting up from chair to go to the restroom, eat, etc. Swam recreationally until about a year ago. He denies surgery in the last 3 months, trauma, immobilization, travel, family history of clotting disorder. Does fly to [place] about 3 times/year, last trip around [place]. Never smoked, IV, drugs, or alcohol. Family [...] lung cancer in his father. 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 [...] on jen (more content not included)... Normal [facility] 11-06-2023 [facility] -- FRAN PAREKH ([id number]) 1945 M Date Time Provider Department 11/06/23 [...] with fax number to [facility]. Fax number is [phone]. CHAD English Beth, LPN 11/10/2023 8:15 AM Signed Patient calling said needs done CASSY please or his will have to go to [place] to work. . Agnes Diaz MD 11/10/2023 [...] hour before dental procedure. - CPAP AutoPAP [id number]. Mask per preference, tubing, filters, humidity. Lifetime Supplies. Dx: G47.33. Fax 30 day compliance report to [phone]. - CPAP Please provide mask fitting. Pt [...] 03/25/2009 Open fracture of distal phalangeal tuft [[id number]*08/31/2011 05/09/2014 Internal derangement of right knee [M23.91] [...] [M54.12] 02/08/2021 (more content not included)... Normal [facility] CNPNon 11-01-2023 CNPN Telephone (FAMWS) -- FRAN PAREKH ([id number]) 1945 M Date Time Provider Department 11/01/23 AGNES DIAZ During your visit today, we recorded the following information about you: Carli Bowen RN 11/01/2023 12:51 PM Signed Polina BONILLAwater use inspector calls and reports that she went out [...] when walking [R26.81] Order(s):CONSULT TO PHYSICAL THERAPY [5684] Order #: [id number]: 1 FUTURE Prescriptions as of 11/01/2023 - [...] hour before dental procedure. - CPAP AutoPAP [id number]. Mask per preference, tubing, filters, humidity. Lifetime Supplies. Dx: G47.33. Fax 30 day compliance report to [phone]. - CPAP Please provide mask fitting. Pt [...] 03/25/2009 Open fracture of distal phalangeal tuft [[id number]*08/31/2011 05/09/2014 Internal derangement of right knee [M23.91] [...] pain w (more content not included)... Normal [facility] CNPNon 10-31-2023 [facility] FRAN [facility]AREKH ([id number]) 1945 M Date Time Provider Department 10/31/23 [facility] During your visit today, we recorded the following information about you: Leonila Winslow LPN 10/31/2023 8:15 AM Signed Divina with [facility] calling to see if you will follow and sign for home care orders for Fdc and PT. DX hypertension. Pt was d/c from [facility] on 10-27-23. Please advise Divina. JOSE [...] hour before dental procedure. - CPAP AutoPAP [id number]. Mask per preference, tubing, filters, humidity. Lifetime Supplies. Dx: G47.33. Fax 30 day compliance report to [phone]. - CPAP Please provide mask fitting. Pt [...] 03/25/2009 Open fracture of distal phalangeal tuft [[id number]*08/31/2011 05/09/2014 Internal derangement of right knee [M23.91] [...] ventricular failu (more content not included)... Normal [facility] CNOVon 10-30-2023 CNOV Office Visit (FAMPWS ) -- IGLESIAFRAN R ([id number]) 1945 M Date Time Provider Department 10/30/23 1:20 PM [facility] During your visit today, we recorded [...] time of this appointment. Patient admitted to [facility] from 10/22 to 10/26 for initial [...] of skin of nose Dr. Chowdary in [place] Stage 3a chronic kidney disease (HCC) Venous insufficiency Previous Surgical History PAST SURGICAL HISTORY Procedure Laterality Date ARTHRP ACETBLR/PROX FEM PROSTC AGRFT/ALGRFT Right 06/03/2019 Hip replacement, total COLONOSCOPY FLX DX W/COLLJ SPEC WHEN PFRMD 04/21/11 Repeat 10 [id number] LASER GREENLIGHT prostate, [place] NEUROPLASTY AND/TRANSPOS MEDIAN [...] before dental (more content not included)... Normal [facility] Basic metabolic 2000 panelon 10-27-2023 Anion gap [Moles/Vol] 13 mmol/L Normal 8-15 [facility] Comment on above: Order Comment: Speci men Type: BLOOD SPECIMEN Ordering Facility: [facility] Address: [address] [id number] Performed By: #### P [facility], 19754-4 #### [facility] CLIA [id number] [address] [place] [address] [place] Calcium [Mass/Vol] 9.0 mg/dL Normal 8.5-10.2 [facility] Comment on above: Order Comment: Speci men Type: BLOOD SPECIMEN Ordering Facility: [facility] Address: [address] [place] [address] Performed By: #### P TTAC, 76759-7 #### [facility] CLIA [id number] [place] [address] [place] Chloride [Moles/Vol] 107 mmol/L Normal 98-107 [facility] Comment on above: Order Comment: Speci men Type: BLOOD SPECIMEN Ordering Facility: [facility] Address: [address] [place] [address] Performed By: #### P TTAC, 14086-6 #### [facility] CLIA [id number] [address] [place] [address] [place] CO2 [Moles/Vol] 20 mmol/L Low 22-30 [facility] Comment on above: Order Comment: Speci men Type: BLOOD SPECIMEN Ordering Facility: [facility] Address: [address] [place] [address] Performed By: #### P TTAC, 35468-2 #### [facility] CLIA [id number] [address] [place] [address] [place] Creatinine [Mass/Vol] 1.32 mg/dL High 0.73-1.22 [facility] Comment on above: Order Comment: Speci men Type: BLOOD SPECIMEN Ordering Facility: [facility] Address: [address] [place] [address] Performed By: #### P TTAC, 42867-2 #### [facility] CLIA [id number] [address] [place] [address] [place] Creatinine and Glomerular filtration rate.predicted panel (S/P/Bld) 55 mL/min/1.73m??? Low >=60 [facility] Comment on above: Order Comment: Speci men Type: BLOOD SPECIMEN Ordering Facility: [facility] Address: [address] [place] [address] Result Comment: Danika mated Glomerular Filtration Rate [...] actual GFR. Performed By: #### P TTAC, 49260-9 #### [facility] CLIA [id number] [address] [place] [address] [place] Glucose [Mass/Vol] 103 mg/dL High 74-99 [facility] Comment on above: Order Comment: Speci men Type: BLOOD SPECIMEN Ordering Facility: [facility] Address: [address] [place] [address] Result Comment: The [place] Diabetes Association (ADA) provides guidance for cutoff [...] Standards of Medical Care in Diabetes 2016, [place] [employer]. Diabetes Care. 2016.39(Suppl 1). Performed By: #### P TTAC, 17450-3 #### [facility] CLIA [id number] [place] [address] [place] Potassium [Moles/Vol] 4.4 mmol/L Normal 3.7-5.1 [facility] Comment on above: Order Comment: Tiffanie rollins Type: BLOOD SPECIMEN Ordering Facility: [facility] Address: [address] [place] [address] Performed By: #### P TTAC, 31312-6 #### [facility] CLIA [id number] [address] [place] [address] [place] Sodium [Moles/Vol] 140 mmol/L Normal 136-144 [facility] Comment on above: Order Comment: Speci men Type: BLOOD SPECIMEN Ordering Facility: [facility] Address: [address] [id number] Performed By: #### P TTAC, 86873-0 #### [facility] CLIA [id number] [address] [id number] [place] [facility] Urea nitrogen [Mass/Vol] 25 mg/dL High 9-24 [facility] Comment on above: Order Comment: Speci ria Type: BLOOD SPECIMEN Ordering Facility: [facility] Address: [address] [place] [address] Performed By: #### P TTAC, 11509-0 #### [facility] CLIA [id number] [address] [address] [id number] [facility] CNDSon 10-27-2023 CNDS HNO ID: [id number] Author: MARQUITA HARP MD Service: Hospital Medicine [...] This 78 years old male transferred from [facility] to our facility with acute hypoxic [...] Provider: Marquita Harp MD Primary Service: , [facility] PATIENT CONDITION AT DISCHARGE: Fair DISCHARGE DISPOSITION: [...] 11:00 AM Victor Manuel Savage DO PUFAMO [facility] Discharge Information Row Name Admission (Discharged) from 10/23/[address] [facility] Start of Care -- they will call [...] Thank you. DME = [employer] CPAP AutoPAP [id number]. Mask per preference, tubing, filters, humidity. Lifetime Supplies. Dx: G47.33. Fax 30 day compliance report to [phone]. gabapentin 300 mg capsule Commonly known as: NEURONTIN hydroCHLOROthiazide 25 mg tablet Take 1 tablet by mouth once daily. levothyroxine 125 mcg tablet Commonly known as: SYNTHROID TAKE 1 TAB (more content not included)... Normal [facility] PT panel Coag (PPP)on 2023 INR Coag (PPP) [Relative time] 1.2 {INR} Normal 0.9-1.3 [facility] Comment on above: Order Comment: Speci men Type: BLOOD SPECIMEN Ordering Facility: [facility] Address: [address] [place] [address] Result Comment: Yvonne min K Antagonist (VKA) Therapeutic Range: INR 2 to 3 (Target INR of 2.5) Note: For patients treated with VKA drugs, such as warfarin, the [place] [employer] 2012 Guideline recommends [...] Chest 2012, 141:7S-47S Saray WISE et al. [facility] 2017, 70: 252-289 Performed By: #### P [facility] #### [facility] CLIA [id number] [place] [address] [place] PT Coag (PPP) [Time] 12.8 s Normal 9.7-13.0 [facility] Comment on above: Order Comment: Speci men Type: BLOOD SPECIMEN Ordering Facility: [facility] Address: [address] [place] [address] Performed By: #### P TTAC #### [facility] CLIA [id number] [address] [place] [address] [place] Basic metabolic 2000 panelon 10-26-2023 Anion gap [Moles/Vol] 13 mmol/L Normal 8-15 [facility] Comment on above: Order Comment: Speci men Type: BLOOD SPECIMEN Ordering Facility: [facility] Address: [address] [place] [address] Performed By: #### P TTAC #### [facility] CLIA [id number] [address] [place] [address] [place] Calcium [Mass/Vol] 8.9 mg/dL Normal 8.5-10.2 [facility] Comment on above: Order Comment: Speci men Type: BLOOD SPECIMEN Ordering Facility: [facility] Address: [address] [place] [address] Performed By: #### P TTAC #### [facility] CLIA [id number] [address] [place] [address] [place] Chloride [Moles/Vol] 105 mmol/L Normal 98-107 [facility] Comment on above: Order Comment: Speci men Type: BLOOD SPECIMEN Ordering Facility: [facility] Address: [address] [place] [address] Performed By: #### P TTAC #### [facility] CLIA [id number] [address] [place] [address] [place] CO2 [Moles/Vol] 23 mmol/L Normal 22-30 [facility] Comment on above: Order Comment: Speci men Type: BLOOD SPECIMEN Ordering Facility: [facility] Address: [address] [place] [address] Performed By: #### P TTAC #### [facility] CLIA [id number] [address] [place] [address] [place] Creatinine [Mass/Vol] 1.34 mg/dL High 0.73-1.22 [facility] Comment on above: Order Comment: Tiffanie rollins Type: BLOOD SPECIMEN Ordering Facility: [facility] Address: [address] [place] [address] Performed By: #### P TTAC #### [facility] CLIA [id number] [place] [address] [facility] [place] Creatinine and Glomerular filtration rate.predicted panel (S/P/Bld) 54 mL/min/1.73m??? Low >=60 [facility] Comment on above: Order Comment: Tiffanie rollins Type: BLOOD SPECIMEN Ordering Facility: [facility] Address: [address] [place] [address] Result Comment: Danika mated Glomerular Filtration Rate [...] GFR. Performed By: #### P TTAC #### [facility] CLIA [id number] [address] [place] [address] [place] Glucose [Mass/Vol] 118 mg/dL High 74-99 [facility] Comment on above: Order Comment: Tiffanie rollins Type: BLOOD SPECIMEN Ordering Facility: [facility] Address: [address] [place] [address] Result Comment: The [place] Diabetes Association (ADA) provides guidance for cutoff [...] Standards of Medical Care in Diabetes 2016, [place] [employer]. Diabetes Care. 2016.39(Suppl 1). Performed By: #### P TTAC #### [facility] CLIA [id number] [address] [place] [address] [place] Potassium [Moles/Vol] 4.3 mmol/L Normal 3.7-5.1 [facility] Comment on above: Order Comment: Speci men Type: BLOOD SPECIMEN Ordering Facility: [facility] Address: [address] [place] [address] Performed By: #### P TTAC #### [facility] CLIA [id number] [address] [place] [address] [place] Sodium [Moles/Vol] 141 mmol/L Normal 136-144 [facility] Comment on above: Order Comment: Ruthi ria Type: BLOOD SPECIMEN Ordering Facility: [facility] Address: [address] [place] [address] Performed By: #### P TTAC #### [facility] CLIA [id number] [address] [place] [address] [place] Urea nitrogen [Mass/Vol] 24 mg/dL Normal 9-24 [facility] Comment on above: Order Comment: Ruthi ria Type: BLOOD SPECIMEN Ordering Facility: [facility] Address: [address] [place] [address] Performed By: #### P TTAC #### [facility] CLIA [id number] [address] [place] [address] [place] CBC panel Auto (Bld)on 10-25 Erythrocyte distribution width (RBC) [Ratio] 14.6 % Normal 11.5-15.0 [facility] Comment on above: Order Comment: Ruthi men Type: BLOOD SPECIMENOrdering Facility: [facility] Address: [address] [place] [address] Performed By: #### 5 8410-2 ####[facility] [id number] [address] [place] Hematocrit (Bld) [Volume fraction] 41.8 % Normal 39.0-51.0 [facility] Comment on above: Order Comment: Speci men Type: BLOOD SPECIMENOrdering Facility: [facility] Address: [address] [place] [address] Performed By: #### 5 8410-2 ####[facility] [id number] [address] Hemoglobin (Bld) [Mass/Vol] 14.6 g/dL Normal 13.0-17.0 [facility] Comment on above: Order Comment: Speci men Type: BLOOD SPECIMENOrdering Facility: [facility] Address: [address] [place] [address] Performed By: #### 5 8410-2 ####[facility] LABORATORYCLIA [id number] [address] MCH (RBC) [Entitic mass] 33.1 pg Normal 26.0-34.0 [facility] Comment on above: Order Comment: Speci men Type: BLOOD SPECIMENOrdering Facility: [facility] Address: [address] [place] [address] Performed By: #### 5 8410-2 ####[facility] LABORATORYCLIA [id number] [address] MCHC (RBC) [Mass/Vol] 34.9 g/dL Normal 30.5-36.0 [facility] Comment on above: Order Comment: Speci men Type: BLOOD SPECIMENOrdering Facility: [facility] Address: [address] [place] [address] Performed By: #### 5 8410-2 ####[facility] LABORATORYCLIA [id number] [address] [place] [facility] MCV (RBC) [Entitic vol] 94.8 fL Normal 80.0-100.0 [facility] Comment on above: Order Comment: Speci men Type: BLOOD SPECIMENOrdering Facility: [facility] Address: [address] [place] [address] Performed By: #### 5 8410-2 ####[facility] LABORATORYCLIA [id number] [place] [address] [place] Nucleated RBC (Bld) [#/Vol] 10*3/uL Normal <0.01 [facility] Comment on above: Order Comment: Speci men Type: BLOOD SPECIMENOrdering Facility: [facility] Address: [address] [place] [address] Performed By: #### 5 8410-2 ####[facility]ORATORYCLIA [id number] [place] [id number] [place] Platelet mean volume (Bld) [Entitic vol] 9.7 fL Normal 9.0-12.7 [facility] Comment on above: Order Comment: Speci men Type: BLOOD SPECIMENOrdering Facility: [facility] Address: [address] [place] [address] Performed By: #### 5 8410-2 ####[facility]ATORYCLIA [id number] [place] [address] [place] Platelets (Bld) [#/Vol] 165 10*3/uL Normal 150-400 [facility] Comment on above: Order Comment: Speci men Type: BLOOD SPECIMENOrdering Facility: [facility] Address: [address] [place] [address] Performed By: #### 5 8410-2 ####[facility]ORATORYCLIA [id number] [place] [address] [place] RBC (Bld) [#/Vol] 4.41 10*6/uL Normal 4.20-6.00 [facility] Comment on above: Order Comment: Speci men Type: BLOOD SPECIMENOrdering Facility: [facility] Address: [address] [place] [address] Performed By: #### 5 8410-2 ####[facility]ORATORYCLIA [id number] [place] [id number] [place] WBC (Bld) [#/Vol] 10.66 10*3/uL Normal 3.70-11.00 [facility] Comment on above: Order Comment: Speci men Type: BLOOD SPECIMENOrdering Facility: [facility] Address: [address] [place] [address] Performed By: #### 5 8410-2 ####[facility]ORATORYCLIA [id number] [address] Frederic 10-26-2023 CNPN Telephone (FAMWS) -- FRAN PAREKH ([id number]) 1945 M Date Time Provider Department 10/26/23 [facility] During your visit today, we recorded the following information about you: Agnes Diaz MD 10/26/2023 1:23 PM Signed I was called by the hospitalist at [place] for this patient regarding new diagnosis of [...] (HCC) [I26.92] Order(s):PROTHROMBIN TIME [SQPT] Order #: [id number] FUTURE Prescriptions as of 10/26/2023 - apixaban [...] hour before dental procedure. - CPAP AutoPAP [id number]. Mask per preference, tubing, filters, humidity. [employer]. Dx: G47.33. Fax 30 day compliance report to [phone]. - CPAP Please provide mask fitting. Pt [...] 03/25/2009 Open fracture of distal phalangeal tuft [[id number]*08/31/2011 05/09/2014 Internal derangement of right knee [M23.91] [...] [M16.11] 05/13/2019 (more content not included)... Normal [facility] CONSULT PROGon 10-26-2023 CONSULT PROG HNO ID: [id number] Author: ANTHONY VIRAMONTES RP Service: Pharmacy Author [...] care of this patient. Anthony Viramontes RPh [facility] CONSULT PROG HNO ID: [id number] Author: RADHA MELGAR RPh Service: Pharmacy Author [...] of bleeding or bruising Additional data elements ([facility]) Is INR less than 1.7? Yes [...] Pharmacist October 26, 2023 2:45 PM Normal [facility] PT panel Coag (PPP)on 2023 INR Coag (PPP) [Relative time] 1.0 {INR} Normal 0.9-1.3 [facility] Comment on above: Order Comment: Tiffanie rollins Type: VENOUS BLOOD SPECIMEN [facility] Address: [address] [place] [address] Result Comment: Yvonne min K Antagonist (VKA) Therapeutic Range: INR 2 to 3 (Target INR of 2.5) Note: For patients treated with VKA drugs, such as warfarin, the [employer] [employer] 2012 Guideline recommends [...] 252-289 Performed By: #### 2 4344-4 #### [facility] CLIA [id number] [place] PT Coag (PPP) [Time] 11.6 s Normal 9.7-13.0 [facility] Comment on above: Order Comment: Speci men Type: VENOUS BLOOD SPECIMEN [facility] Address: [address] [place] [address] Performed By: #### 2 4344-4 #### [facility] CLIA [id number] [address] [place] [address] PTT, ANTICOAGULANT THERAPYon 10-26-2023 aPTT Coag (PPP) [Time] 31.8 s Normal 23.0-32.4 [facility] Comment on above: Order Comment: Speci men Type: BLOOD SPECIMEN [facility] Address: [address] [place] [address] Performed By: #### P TTA #### [facility] CLIA [id number] [address] [place] [address] aPTT Coag (PPP) [Time] 60.0 s High 23.0-32.4 [facility] Comment on above: Order Comment: Speci men Type: VENOUS BLOOD SPECIMEN [facility] Address: [address] [place] [address] Performed By: #### 2 4344-4 #### [facility] CLIA [id number] [address] [place] [address] aPTT Coag (PPP) [Time] 83.6 s High 23.0-32.4 [facility] Comment on above: Order Comment: Speci men Type: VENOUS BLOOD SPECIMEN [facility] Address: [address] [place] [address] Performed By: #### 2 4344-4 #### [facility] CLIA [id number] [address] [place] [address] THERAPY NTon 10-26-2023 THERAPY NT HNO ID: [id number] Author: DEVYN MOYER PT Service: Physical Therapy Author Type: Physical Therapist Type: Therapy (PT/OT/Speech/Resp) Filed: 10/26/2023 18:46 Note Text: Physical Therapy Evaluation Summary SERVICE DATE: 10/26/2023 SERVICE TIME: 1715 to 1745 ROOM: [place] [address] PT 6 Clicks Score: 21 DISCHARGE RECOMMENDATIONS [...] Reduced mobility-other TREATMENT INTERVENTIONS Evaluation, Gait Training (51271) Timed Code Treatment (minutes): 10 Skilled Treatment [...] October 26, 2023 TIME: 6:46 PM Normal [facility] Basic metabolic 2000 panelon 10-25-2023 Anion gap [Moles/Vol] 10 mmol/L Normal 8-15 [facility] Comment on above: Order Comment: Speci men Type: VENOUS BLOOD SPECIMEN [facility] Address: [address] [place] [address] Performed By: #### 2 4344-4 #### [facility] CLIA [id number] [address] [place] [address] [place] Calcium [Mass/Vol] 8.7 mg/dL Normal 8.5-10.2 [facility] Comment on above: Order Comment: Speci men Type: VENOUS BLOOD SPECIMEN [facility] Address: [address] [place] [address] Performed By: #### 2 4344-4 #### [facility] CLIA [id number] [address] [place] [address] [place] Chloride [Moles/Vol] 105 mmol/L Normal 98-107 [facility] Comment on above: Order Comment: Speci men Type: VENOUS BLOOD SPECIMEN [facility] Address: [address] [place] [address] Performed By: #### 2 4344-4 #### [facility] CLIA [id number] [address] [place] [address] [place] CO2 [Moles/Vol] 27 mmol/L Normal 22-30 [facility] Comment on above: Order Comment: Speci men Type: VENOUS BLOOD SPECIMEN [facility] Address: [address] [place] [address] Performed By: #### 2 4344-4 #### [facility] CLIA [id number] [address] [place] [address] [place] Creatinine [Mass/Vol] 1.64 mg/dL High 0.73-1.22 [facility] Comment on above: Order Comment: Speci men Type: VENOUS BLOOD SPECIMEN [facility] Address: [address] [place] [address] Performed By: #### 2 4344-4 #### [facility] CLIA [id number] [address] [place] [address] [place] Creatinine and Glomerular filtration rate.predicted panel (S/P/Bld) 42 mL/min/1.73m??? Low >=60 [facility] Comment on above: Order Comment: Tiffanie rollins Type: VENOUS BLOOD SPECIMEN [facility] Address: [address] [place] [address] Result Comment: Danika mated Glomerular Filtration Rate [...] GFR. Performed By: #### 2 4344-4 #### [facility] CLIA [id number] [place] [address] [place] Glucose [Mass/Vol] 107 mg/dL High 74-99 [facility] Comment on above: Order Comment: Tiffanie rollins Type: VENOUS BLOOD SPECIMEN [facility] Address: [address] [place] [address] Result Comment: The [place] [employer] (ADA) provides guidance for cutoff [...] Standards of Medical Care in Diabetes 2016, [place] [employer]. Diabetes Care. 2016.39(Suppl 1). Performed By: #### 2 4344-4 #### [facility] CLIA [id number] [place] [address] [place] Potassium [Moles/Vol] 3.9 mmol/L Normal 3.7-5.1 [facility] Comment on above: Order Comment: Speci men Type: VENOUS BLOOD SPECIMEN [facility] Address: [address] [place] [address] Performed By: #### 2 4344-4 #### [facility] CLIA [id number] [address] [place] [address] [place] Sodium [Moles/Vol] 142 mmol/L Normal 136-144 [facility] Comment on above: Order Comment: Speci men Type: VENOUS BLOOD SPECIMEN [facility] Address: [address] [place] [address] Performed By: #### 2 4344-4 #### [facility] CLIA [id number] [address] [place] [address] [place] Urea nitrogen [Mass/Vol] 24 mg/dL Normal 9-24 [facility] Comment on above: Order Comment: Speci men Type: VENOUS BLOOD SPECIMEN [facility] Address: [address] [place] [address] Performed By: #### 2 4344-4 #### [facility] CLIA [id number] [address] [place] [address] [facility] [place] CBC panel Auto (Bld)on 10-24 Erythrocyte distribution width (RBC) [Ratio] 14.4 % Normal 11.5-15.0 [facility] Comment on above: Order Comment: Speci men Type: BLOOD SPECIMENOrdering Facility: [facility] Address: [address] [place] [address] Performed By: #### 5 8410-2 ####[facility] LABORATORYCLIA [id number] [address] [place] Hematocrit (Bld) [Volume fraction] 42.2 % Normal 39.0-51.0 [facility] Comment on above: Order Comment: Speci men Type: BLOOD SPECIMENOrdering Facility: [facility] Address: [address] [place] [address] Performed By: #### 5 8410-2 ####[facility] LABORATORYCLIA [id number] [address] Hemoglobin (Bld) [Mass/Vol] 14.3 g/dL Normal 13.0-17.0 [facility] Comment on above: Order Comment: Speci men Type: BLOOD SPECIMENOrdering Facility: [facility] Address: [address] [place] [address] Performed By: #### 5 8410-2 ####[facility]ORATORYCLIA [id number] [address] [place] MCH (RBC) [Entitic mass] 32.3 pg Normal 26.0-34.0 [facility] Comment on above: Order Comment: Speci men Type: BLOOD SPECIMENOrdering Facility: [facility] Address: [address] [place] [address] Performed By: #### 5 8410-2 ####[facility] LABORATORYCLIA [id number] [address] [facility] MCHC (RBC) [Mass/Vol] 33.9 g/dL Normal 30.5-36.0 [facility] Comment on above: Order Comment: Speci men Type: BLOOD SPECIMENOrdering Facility: [facility] Address: [address] [place] [address] Performed By: #### 5 8410-2 ####[facility] LABORATORYCLIA [id number] [address] MCV (RBC) [Entitic vol] 95.3 fL Normal 80.0-100.0 [facility] Comment on above: Order Comment: Speci men Type: BLOOD SPECIMENOrdering Facility: [facility] Address: [address] [place] [address] Performed By: #### 5 8410-2 ####[facility] LABORATORYCLIA [id number] [address] [place] Nucleated RBC (Bld) [#/Vol] 10*3/uL Normal <0.01 [facility] Comment on above: Order Comment: Speci men Type: BLOOD SPECIMENOrdering Facility: [facility] Address: [address] [place] [address] Performed By: #### 5 8410-2 ####[facility]ORATORYCLIA [id number] [place] [id number] [place] Platelet mean volume (Bld) [Entitic vol] 9.8 fL Normal 9.0-12.7 [facility] Comment on above: Order Comment: Speci men Type: BLOOD SPECIMENOrdering Facility: [facility] Address: [address] [place] [address] Performed By: #### 5 8410-2 ####[facility]ORYCLIA [id number] [place] [id number] [place] Platelets (Bld) [#/Vol] 180 10*3/uL Normal 150-400 [facility] Comment on above: Order Comment: Speci men Type: BLOOD SPECIMENOrdering Facility: [facility] Address: [address] [place] [address] Performed By: #### 5 8410-2 ####[facility]ATORYCLIA [id number] [place] [address] [place] RBC (Bld) [#/Vol] 4.43 10*6/uL Normal 4.20-6.00 [facility] Comment on above: Order Comment: Speci men Type: BLOOD SPECIMENOrdering Facility: [facility] Address: [address] [place] [address] Performed By: #### 5 8410-2 ####[facility]ATORYCLIA [id number] [place] [id number] [place] WBC (Bld) [#/Vol] 10.95 10*3/uL Normal 3.70-11.00 [facility] Comment on above: Order Comment: Speci men Type: BLOOD SPECIMENOrdering Facility: [facility] Address: [address] [place] [address] Performed By: #### 5 8410-2 ####[facility]ATORYCLIA [id number] [place] [id number] [facility] [place] CONSULT PROGon 10-25-2023 CONSULT PROG HNO ID: [id number] Author: COLE FELTON [facility] Service: Pharmacy Author Type: Pharmacist Type: Consult [...] No, per bedside RN Additional data elements ([facility]) Is INR less than 1.7? Yes [...] on the dosing algorithm approved by the [facility] Pharmacy and Therapeutics Committee, the following order [...] patient received education: No Signature: Cole Felton [facility] Pager/Extension: [phone] Normal [facility] Magnesium SerPl-mCncon 10-24 Magnesium [Mass/Vol] 1.8 mg/dL Normal 1.7-2.3 [facility] Comment on above: Order Comment: Speci men Type: VENOUS BLOOD SPECIMEN [facility] Address: [address] [place] [address] Performed By: #### 2 4344-4 #### [facility] CLIA [id number] OF [facility] NURSING PROGon 10-25-2023 NURSING PROG HNO ID: [id number] Author: KARLA KEATING, RN Service: ? Author Type: Registered Nurse Type: Nursing Progress Note Filed: 10/25/2023 23:21 Note Text: 2319: page to hospitalist Fran Parekh PK228 pt had 7 beats v-tach, asymptomatic. Lance [id number] 2322: Direct message from Dr. Macario MD page was received ! no intervention needed [facility] NURSING PROG HNO ID: [id number] Author: KARLA KEATING, RN Service: ? Author Type: Registered Nurse Type: Nursing Progress Note Filed: 10/25/2023 03:27 Note Text: 0328: page to hospitalist Fran Parekh PK228 urgent lab value called to unit. PTT = 101.3. per nomogram, stopping for 1 hr then restarting at 1600u. van Vargas [id number] [facility] PT EDon 10-25-2023 PT ED HNO ID: [id number] Author: COLE FELTON [facility] Service: Pharmacy Author Type: Pharmacist Type: Patient Education Filed: 10/25/2023 15:58 Note Text: PHARMACY ANTICOAGULATION EDUCATION Patient Name: Fran Parekh Account #: Data Unavailable Admission Date: 10/23/2023 2:07 AM Date of Contact: October 25, 2023 Time of Contact: 3:58 PM Patient anticipated to be discharged on warfarin as oral anticoagulant therapy. Anticoagulant history: Patient is new to 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 therapy Outpatient follow-up plan: Follow-up to be determined. Patient from [facility] Indication for oral 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: pulmonary embolus (PE) [...] adverse drug reactions and interactions. Cole Felton, [facility] Normal [facility] PT panel Coag (PPP)on 2023 INR Coag (PPP) [Relative time] 1.0 {INR} Normal 0.9-1.3 [facility] Comment on above: Order Comment: Speci men Type: BLOOD SPECIMEN [facility] Address: [address], [place] [id number] Result Comment: Yvonne min K Antagonist (VKA) Therapeutic Range: INR 2 to 3 (Target INR of 2.5) Note: For patients treated with VKA drugs, such as warfarin, the [place] [employer] 2012 Guideline recommends [...] Chest 2012, 141:7S-47S Saray RA, et al. [facility] 2017, 70: 252-289 Performed By: #### P TTAC #### [facility] CLIA [id number] [address] [place] [address] [place] PT Coag (PPP) [Time] 11.6 s Normal 9.7-13.0 [facility] Comment on above: Order Comment: Speci men Type: BLOOD SPECIMEN [facility] Address: [address] [place] [address] Performed By: #### P TTAC #### [facility] CLIA [id number] [address] [place] [address] [place] PTT, ANTICOAGULANT THERAPYon 10-25-2023 aPTT Coag (PPP) [Time] 71.9 s High 23.0-32.4 [facility] Comment on above: Order Comment: Speci men Type: BLOOD SPECIMENOrdering Facility: [facility] Address: [address] [place] [address] Performed By: #### P TTAC ####[facility]ORYCLIA [id number] [place] [address] [place] aPTT Coag (PPP) [Time] 57.9 s High 23.0-32.4 [facility] Comment on above: Order Comment: Speci men Type: BLOOD SPECIMEN [facility] Address: [address] [place] [address] Performed By: #### P TTAC #### [facility] CLIA [id number] [address] [place] [address] [place] aPTT Coag (PPP) [Time] 101.3 s High 23.0-32.4 [facility] Comment on above: Order Comment: Speci men Type: BLOOD SPECIMEN [facility] Address: [address] [place] [address] Performed By: #### P TTAC #### [facility] CLIA [id number] [address] [place] [address] ALLIED HEALTHon 10-24-2023 ALLIED HEALTH HNO ID: [id number] Author: JUAN C ESCOTO Chaplain Service: Spiritual Care Author Type: Video Machines Mechanic Type: Allied Health Filed: 10/24/2023 14:08 Note Text: SPIRITUALCARE Spiritual Care Visit- Brief Note Name: Fran Parekh Date: October 24, 2023 Notes: While engaging in spiritual care rounds on the SICU unit, I visited the patient and introduced spiritual care services. 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 Video Machines Mechanic provided caring presence and responses, interactive listening and connected patient to a reflection in mindfulness concentrating on love. I provided further spiritual presence and bucolical support through an offer of prayers. Patient was grateful. I shared sleeping car service attendant availability. To contact the Spiritual Care Department: Please call [phone] or Page the On-Call Video Machines Mechanic at pager [phone]. Thank you for the opportunity to be of service. SIGNATURE: Chaplain Alphonse PATIENT NAME: Fran Parekh DATE: October 24, 2023 TIME: 8:45 AM This is an electronically created document. IF PRINTED, PLEASE DO NOT REMOVE FROM THE CHART OR MODIFY PRINTED COPY. Normal [facility] Basic metabolic 2000 panelon 10-24-2023 Anion gap [Moles/Vol] 11 mmol/L Normal 8-15 [facility] Comment on above: Order Comment: Speci men Type: BLOOD SPECIMEN [facility] Address: [address] [place] [address] Performed By: #### P TTA, 61485-7 #### [facility] CLIA [id number] [place] [address] [place] Calcium [Mass/Vol] 8.4 mg/dL Low 8.5-10.2 [facility] Comment on above: Order Comment: Speci men Type: BLOOD SPECIMEN [facility] Address: [address] [place] [address] Performed By: #### P TTA, 76992-7 #### [facility] CLIA [id number] [address] [place] [address] [place] Chloride [Moles/Vol] 106 mmol/L Normal 98-107 [facility] Comment on above: Order Comment: Speci men Type: BLOOD SPECIMEN [facility] Address: [address] [place] [address] Performed By: #### P TTAC, 47437-7 #### [facility] CLIA [id number] [place] [address] [place] CO2 [Moles/Vol] 21 mmol/L Low 22-30 [facility] Comment on above: Order Comment: Speci men Type: BLOOD SPECIMEN [facility] Address: [address] [place] [address] Performed By: #### P TTAC, 31511-4 #### [facility] CLIA [id number] [address] [place] [address] [place] Creatinine [Mass/Vol] 1.43 mg/dL High 0.73-1.22 [facility] Comment on above: Order Comment: Speci men Type: BLOOD SPECIMEN [facility] Address: [address] [place] [address] Performed By: #### P TTAC, 44124-5 #### [facility] CLIA [id number] [address] [place] [address] Creatinine and Glomerular filtration rate.predicted panel (S/P/Bld) 50 mL/min/1.73m??? Low >=60 [facility] Comment on above: Order Comment: Speci men Type: BLOOD SPECIMEN [facility] Address: [address] [place] [address] Result Comment: Danika mated Glomerular Filtration Rate [...] actual GFR. Performed By: #### P TTAC, 98903-2 #### [facility] CLIA [id number] [address] [place] [address] [place] Glucose [Mass/Vol] 107 mg/dL High 74-99 [facility] Comment on above: Order Comment: Tiffanie rollins Type: BLOOD SPECIMEN [facility] Address: [address] [place] [address] Result Comment: The [place] [employer] (ADA) provides guidance for cutoff [...] Standards of Medical Care in Diabetes 2016, [employer]. Diabetes Care. 2016.39(Suppl 1). Performed By: #### P TTAC, 60868-0 #### [facility] CLIA [id number] [address] [place] [address] [place] Potassium [Moles/Vol] 4.0 mmol/L Normal 3.7-5.1 [facility] Comment on above: Order Comment: Tiffanie rollins Type: BLOOD SPECIMEN Ordering Facility: [facility] Address: [address] [place] [address] Performed By: #### P TTAC, 52120-1 #### [facility] CLIA [id number] [address] [place] [address] [place] Sodium [Moles/Vol] 138 mmol/L Normal 136-144 [facility] Comment on above: Order Comment: Tiffanie rollins Type: BLOOD SPECIMEN Ordering Facility: [facility] Address: [address] [place] [address] Performed By: #### P TTAC, 28136-7 #### [facility] CLIA [id number] [address] [place] [address] [place] Urea nitrogen [Mass/Vol] 23 mg/dL Normal 9-24 [facility] Comment on above: Order Comment: Tiffanie rollins Type: BLOOD SPECIMEN Ordering Facility: [facility] Address: [address] [place] [address] Performed By: #### P [facility], 03354-3 #### [facility] CLIA [id number] [address] CBC panel Auto (Bld)on 10-23 Erythrocyte distribution width (RBC) [Ratio] 14.3 % Normal 11.5-15.0 [facility] Comment on above: Order Comment: Speci men Type: BLOOD SPECIMENOrdering Facility: [facility] Address: [address] [place] [address] Performed By: #### 5 8410-2 ####[facility] [id number] [address] Hematocrit (Bld) [Volume fraction] 45.7 % Normal 39.0-51.0 [facility] Comment on above: Order Comment: Speci men Type: BLOOD SPECIMENOrdering Facility: [facility] Address: [address] [place] [address] Performed By: #### 5 8410-2 ####[facility] [id number] [address] [place] Hemoglobin (Bld) [Mass/Vol] 15.6 g/dL Normal 13.0-17.0 [facility] Comment on above: Order Comment: Speci men Type: BLOOD SPECIMENOrdering Facility: [facility] Address: [address] [place] [address] Performed By: #### 5 8410-2 ####[facility] [id number] [address] [place] MCH (RBC) [Entitic mass] 32.4 pg Normal 26.0-34.0 [facility] Comment on above: Order Comment: Speci men Type: BLOOD SPECIMENOrdering Facility: [facility] Address: [address] [place] [address] Performed By: #### 5 8410-2 ####[facility] [id number] [place] [address] [place] MCHC (RBC) [Mass/Vol] 34.1 g/dL Normal 30.5-36.0 [facility] Comment on above: Order Comment: Speci men Type: BLOOD SPECIMENOrdering Facility: [facility] Address: [address] [place] [address] Performed By: #### 5 8410-2 ####[facility] [id number] [place] [address] [place] MCV (RBC) [Entitic vol] 94.8 fL Normal 80.0-100.0 [facility] Comment on above: Order Comment: Speci men Type: BLOOD SPECIMENOrdering Facility: [facility] Address: [address] [place] [address] Performed By: #### 5 8410-2 ####[facility]ORY[facility]IA [id number] [place] [address] [place] Nucleated RBC (Bld) [#/Vol] 10*3/uL Normal <0.01 [facility] Comment on above: Order Comment: Speci men Type: BLOOD SPECIMENOrdering Facility: [facility] Address: [address] [place] [address] Performed By: #### 5 8410-2 ####[facility]ORYCLIA [id number] [place] [address] [place] Platelet mean volume (Bld) [Entitic vol] 9.6 fL Normal 9.0-12.7 [facility] Comment on above: Order Comment: Speci men Type: BLOOD SPECIMENOrdering Facility: [facility] Address: [address] [place] [address] Performed By: #### 5 8410-2 ####[facility]ORYCLIA [id number] [place] [address] [place] Platelets (Bld) [#/Vol] 203 10*3/uL Normal 150-400 [facility] Comment on above: Order Comment: Speci men Type: BLOOD SPECIMENOrdering Facility: [facility] Address: [address] [place] [address] Performed By: #### 5 8410-2 ####[facility] [id number] [place] [id number] [place] RBC (Bld) [#/Vol] 4.82 10*6/uL Normal 4.20-6.00 [facility] Comment on above: Order Comment: Speci men Type: BLOOD SPECIMENOrdering Facility: [facility] Address: [address] [place] [address] Performed By: #### 5 8410-2 ####[facility]ORYCLIA [id number] [place] [address] [place] WBC (Bld) [#/Vol] 11.53 10*3/uL High 3.70-11.00 [facility] Comment on above: Order Comment: Speci men Type: BLOOD SPECIMENOrdering Facility: [facility] Address: [address] [place] [address] Performed By: #### 5 8410-2 ####[facility]ORYCLIA [id number] [address] [place] Erythrocyte distribution width (RBC) [Ratio] 14.5 % Normal 11.5-15.0 [facility] Comment on above: Order Comment: Speci men Type: BLOOD SPECIMEN Ordering Facility: [facility] Address: [address] [place] [address] Performed By: #### P TTAC #### [facility] CLIA [id number] [address] [place] [address] [place] Hematocrit (Bld) [Volume fraction] 42.2 % Normal 39.0-51.0 [facility] Comment on above: Order Comment: Speci men Type: BLOOD SPECIMEN Ordering Facility: [facility] Address: [address] [place] [address] Performed By: #### P TTAC #### [facility] CLIA [id number] [address] [place] [address] [place] Hemoglobin (Bld) [Mass/Vol] 14.2 g/dL Normal 13.0-17.0 [facility] Comment on above: Order Comment: Speci men Type: BLOOD SPECIMEN Ordering Facility: [facility] Address: [address] [place] [address] Performed By: #### P TTAC #### [facility] CLIA [id number] [address] [place] [address] [place] MCH (RBC) [Entitic mass] 32.1 pg Normal 26.0-34.0 [facility] Comment on above: Order Comment: Speci men Type: BLOOD SPECIMEN Ordering Facility: [facility] Address: [address] [place] [address] Performed By: #### P TTAC #### [facility] CLIA [id number] [address] [place] [address] [place] MCHC (RBC) [Mass/Vol] 33.6 g/dL Normal 30.5-36.0 [facility] Comment on above: Order Comment: Speci men Type: BLOOD SPECIMEN Ordering Facility: [facility] Address: [address] [place] [address] Performed By: #### P TTAC #### [facility] CLIA [id number] [address] [place] [address] [place] MCV (RBC) [Entitic vol] 95.5 fL Normal 80.0-100.0 [facility] Comment on above: Order Comment: Speci men Type: BLOOD SPECIMEN Ordering Facility: [facility] Address: [address] [place] [address] Performed By: #### P TTAC #### [facility] CLIA [id number] [address] [place] [address] [place] Nucleated RBC (Bld) [#/Vol] 10*3/uL Normal <0.01 [facility] Comment on above: Order Comment: Speci men Type: BLOOD SPECIMEN Ordering Facility: [facility] Address: [address] [place] [address] Performed By: #### P TTAC #### [facility] CLIA [id number] [address] [place] [address] [place] Platelet mean volume (Bld) [Entitic vol] 9.8 fL Normal 9.0-12.7 [facility] Comment on above: Order Comment: Speci men Type: BLOOD SPECIMEN Ordering Facility: [facility] Address: [address] [place] [address] Performed By: #### P TTAC #### [facility] CLIA [id number] [address] [place] [address] [place] Platelets (Bld) [#/Vol] 151 10*3/uL Normal 150-400 [facility] Comment on above: Order Comment: Speci men Type: BLOOD SPECIMEN Ordering Facility: [facility] Address: [address] [place] [address] Performed By: #### P TTAC #### [facility] CLIA [id number] [address] [place] [address] [place] RBC (Bld) [#/Vol] 4.42 10*6/uL Normal 4.20-6.00 [facility] Comment on above: Order Comment: Speci men Type: BLOOD SPECIMEN Ordering Facility: [facility] Address: [address] [place] [address] Performed By: #### P TTAC #### [facility] CLIA [id number] [address] [place] [address] [place] WBC (Bld) [#/Vol] 10.84 10*3/uL Normal 3.70-11.00 [facility] Comment on above: Order Comment: Speci men Type: BLOOD SPECIMEN Ordering Facility: [facility] Address: [address] [place] [address] Performed By: #### P TTAC #### [facility] CLIA [id number] [address] [place] [address] [place] CONSULT PROGon 10-24-2023 CONSULT PROG HNO ID: [id number] Author: SISSY MARTINEZ RPh Service: Pharmacy Author [...] (discussed with CHAD Ly) Additional data elements ([facility]) Is INR less than 1.7? Yes [...] patient received education: No Signature: Sissy Martinez [facility] Normal [facility] Gas and Carbon monoxide pane l (BldV)on 10-24-2023 BASE DEFICIT, VENOUS >-1 Normal -2-0 [facility] Comment on above: Order Comment: Speci men Type: BLOOD SPECIMEN Ordering Facility: [facility] Address: [address] [place] [address] Performed By: #### P TTAC #### [facility] CLIA [id number] [address] [place] [address] [place] Body temperature 97.16 [degF] Normal [facility] Comment on above: Order Comment: Specjennifer rollins Type: BLOOD SPECIMEN Ordering Facility: [facility] Address: [address] [place] [address] Performed By: #### P TTAC #### [facility] CLIA [id number] [address] [place] [address] [place] Calcium.ionized (Bld) [Mass/Vol] 1.11 mmol/L Normal 1.08-1.30 [facility] Comment on above: Order Comment: Speci men Type: BLOOD SPECIMEN Ordering Facility: [facility] Address: [address] [place] [address] Performed By: #### P TTAC #### [facility] CLIA [id number] [address] [place] [address] [place] Calcium.ionized adjusted to pH 7.4 (BldA) [Moles/Vol] 1.13 mmol/L Normal 1.08-1.30 [facility] Comment on above: Order Comment: Speci men Type: BLOOD SPECIMEN Ordering Facility: [facility] Address: [address] [place] [address] Performed By: #### P TTAC #### [facility] CLIA [id number] [address] [place] [address] [place] Carboxyhemoglobin (BldV) [Mass fraction] 1.8 % Normal 0.0-2.0 [facility] Comment on above: Order Comment: Speci men Type: BLOOD SPECIMEN Ordering Facility: [facility] Address: [address] [place] [address] Result Comment: Carb oxyhemoglobin Reference Range for Smokers: 2.0-8.0% Performed By: #### P TTAC #### [facility] CLIA [id number] [address] [place] [address] [place] Chloride [Moles/Vol] 111 mmol/L High 97-105 [facility] Comment on above: Order Comment: Speci men Type: BLOOD SPECIMEN Ordering Facility: [facility] Address: [address] [place] [address] Performed By: #### P TTAC #### [facility] CLIA [id number] [address] [place] [address] [place] CO2 (BldV) [Partial pressure] 35 mm[Hg] Low 42-55 [facility] Comment on above: Order Comment: Speci men Type: BLOOD SPECIMEN Ordering Facility: [facility] Address: [address] [place] [address] Performed By: #### P TTAC #### [facility] CLIA [id number] [address] [place] [address] [place] CO2 adjusted to patient's actual temperature (BldV) [Partial pressure] Normal [facility] Comment on above: Order Comment: Speci men Type: BLOOD SPECIMEN Ordering Facility: [facility] Address: [address] [place] [address] Performed By: #### P TTAC #### [facility] CLIA [id number] [address] [place] [address] [place] Glucose [Mass/Vol] 116 mg/dL High 60-105 [facility] Comment on above: Order Comment: Speci men Type: BLOOD SPECIMEN Ordering Facility: [facility] Address: [address] [place] [address] Performed By: #### P TTAC #### [facility] CLIA [id number] [address] [place] [address] [place] HCO3 (Bld) [Moles/Vol] 23 mmol/L Low 24-28 [facility] Comment on above: Order Comment: Speci men Type: BLOOD SPECIMEN Ordering Facility: [facility] Address: [address] [place] [address] Performed By: #### P TTAC #### [facility] CLIA [id number] [address] [place] [address] [place] Hematocrit (Bld) [Volume fraction] 46.1 % Normal 39.0-51.0 [facility] Comment on above: Order Comment: Speci men Type: BLOOD SPECIMEN Ordering Facility: [facility] Address: [address] [place] [address] Performed By: #### P TTAC #### [facility] CLIA [id number] [address] [place] [address] [place] Hemoglobin (Bld) [Mass/Vol] 15.1 g/dL Normal 13.0-17.0 [facility] Comment on above: Order Comment: Speci men Type: BLOOD SPECIMEN Ordering Facility: [facility] Address: [address] [place] [address] Performed By: #### P TTAC #### [facility] CLIA [id number] [address] [place] [address] [place] Lactate [Moles/Vol] 1.4 mmol/L Normal 0.5-2.2 [facility] Comment on above: Order Comment: Speci men Type: BLOOD SPECIMEN Ordering Facility: [facility] Address: [address] [place] [address] Performed By: #### P TTAC #### [facility] CLIA [id number] [address] [place] [address] [place] Methemoglobin (Bld) [Mass fraction] 0.4 % Normal 0.0-1.5 [facility] Comment on above: Order Comment: Speci men Type: BLOOD SPECIMEN Ordering Facility: [facility] Address: [address] [place] [address] Performed By: #### P TTAC #### [facility] IA [id number] [address] [place] [address] [place] O2 THERAPY RA=Room Air Normal [facility] Comment on above: Order Comment: Speci men Type: BLOOD SPECIMEN Ordering Facility: [facility] Address: [address] [place] [address] Performed By: #### P TTAC #### [facility] CLIA [id number] [address] [place] [address] [place] Oxygen (BldV) [Partial pressure] 153 mm[Hg] High 35-45 [facility] Comment on above: Order Comment: Speci men Type: BLOOD SPECIMEN Ordering Facility: [facility] Address: [address] [place] [address] Performed By: #### P TTAC #### [facility] CLIA [id number] [address] [place] [address] [place] Oxygen adjusted to patient's actual temperature (BldV) [Partial pressure] Normal [facility] Comment on above: Order Comment: Speci men Type: BLOOD SPECIMEN Ordering Facility: [facility] Address: [address] [place] [address] Performed By: #### P TTAC #### [facility] CLIA [id number] [address] [place] [address] [place] Oxygen saturation in Venous blood 99 % High 60-85 [facility] Comment on above: Order Comment: Speci men Type: BLOOD SPECIMEN Ordering Facility: [facility] Address: [address] [place] [address] Performed By: #### P TTAC #### [facility] CLIA [id number] [address] [place] [address] [place] Oxyhemoglobin (BldV) [Mass fraction] 97 % High 60-85 [facility] Comment on above: Order Comment: Speci men Type: BLOOD SPECIMEN Ordering Facility: [facility] Address: [address] [place] [address] Performed By: #### P TTAC #### [facility] CLIA [id number] [address] [place] [address] [place] pH (BldV) 7.44 [pH] High 7.32-7.42 [facility] Comment on above: Order Comment: Speci men Type: BLOOD SPECIMEN Ordering Facility: [facility] Address: [address] [place] [address] Performed By: #### P TTAC #### [facility] CLIA [id number] [address] [place] [address] [place] pH adjusted to patient's actual temperature (BldV) Normal [facility] Comment on above: Order Comment: Speci men Type: BLOOD SPECIMEN Ordering Facility: [facility] Address: [address] [place] [address] Performed By: #### P TTAC #### [facility] CLIA [id number] [address] [place] [address] [place] Potassium [Moles/Vol] 4.0 mmol/L Normal 3.5-5.0 [facility] Comment on above: Order Comment: Speci men Type: BLOOD SPECIMEN Ordering Facility: [facility] Address: [address] [place] [address] Performed By: #### P TTAC #### [facility] CLIA [id number] [address] [place] [address] [place] Sodium [Moles/Vol] 140 mmol/L Normal 136-144 [facility] Comment on above: Order Comment: Tiffanie rollins Type: BLOOD SPECIMEN Ordering Facility: [facility] Address: [address] [place] [address] Performed By: #### P TTAC #### [facility] CLIA [id number] [address] [place] [id number] [place] Magnesium SerPl-mCncon 10-23 Magnesium [Mass/Vol] 1.9 mg/dL Normal 1.7-2.3 [facility] Comment on above: Order Comment: Tiffanie rollins Type: BLOOD SPECIMEN Ordering Facility: [facility] Address: [address] [place] [address] Performed By: #### P TTAC, 37745-0 #### [facility] CLIA [id number] [address] [place] [address] [place] NURSING PROGon 10-24-2023 NURSING PROG HNO ID: [id number] Author: ANN NGUYEN RN Service: ? Author Type: Registered Nurse Type: Nursing Progress Note Filed: 10/24/2023 17:18 Note Text: Transfer Note: PATIENT NAME: Fran Parekh Patient Location: [place] [id number]- Room: [place] [address] Patient transferred out to room/unit PK 2 C 28 in stable condition. Actions taken: Report given/called to CHAD Astudillo at 1710. Patient belongings with patient and patient transferred on telemetry. Normal [facility] PT panel Coag (PPP)on 2023 INR Coag (PPP) [Relative time] 1.0 {INR} Normal 0.9-1.3 [facility] Comment on above: Order Comment: Tiffanie rollins Type: BLOOD SPECIMEN Ordering Facility: [facility] Address: [address] [place] [address] Result Comment: Yvonne min K Antagonist (VKA) Therapeutic Range: INR 2 to 3 (Target INR of 2.5) Note: For patients treated with VKA drugs, such as warfarin, the [employer] 2012 Guideline recommends [...] Chest 2012, 141:7S-47S Saray RA, et al. [facility] 2017, 70: 252-289 Performed By: #### P TTA, 43543-8 #### [facility] CLIA [id number] [address] [place] [address] [place] PT Coag (PPP) [Time] 11.3 s Normal 9.7-13.0 [facility] Comment on above: Order Comment: Tiffanie rollins Type: BLOOD SPECIMEN Ordering Facility: [facility] Address: [address] [place] [address] Performed By: #### P TTA, 97558-6 #### [facility] CLIA [id number] [address] [place] [address] [place] PTT, ANTICOAGULANT THERAPYon 10-24-2023 aPTT Coag (PPP) [Time] 30.0 s Normal 23.0-32.4 [facility] Comment on above: Order Comment: Ruthi men Type: VENOUS BLOOD SPECIMEN Ordering Facility: [facility] Address: [address] [place] [address] Performed By: #### 2 4344-4 #### [facility] CLIA [id number] [address] [place] [address] [place] [facility] aPTT Coag (PPP) [Time] 50.7 s High 23.0-32.4 [facility] Comment on above: Order Comment: Ruthi men Type: BLOOD SPECIMEN Ordering Facility: [facility] Address: [address] [place] [place] [id number] Performed By: #### P TTAC, 41873-4 #### [facility] CLIA [id number] [address] [place] [id number] [place] aPTT Coag (PPP) [Time] 55.2 s High 23.0-32.4 [facility] Comment on above: Order Comment: Speci men Type: VENOUS BLOOD SPECIMEN Ordering Facility: [facility] Address: [facility] [place] [address] Performed By: #### 2 4344-4 #### [facility] CLIA [id number] [address] [place] [id number] [place] Phosphate SerPl-mCncon 10-23 Phosphate [Mass/Vol] 3.8 mg/dL Normal 2.7-4.8 [facility] Comment on above: Order Comment: Speci men Type: BLOOD SPECIMEN Ordering Facility: [facility] Address: [address] [place], [place] [address] [id number] Performed By: #### P TTAC, 70452-2 #### [facility] CLIA [id number] [address] [place] [id number] [place] ALLIED HEALTHon 10-23-2023 ALLIED HEALTH HNO ID: [id number] Author: JUAN C ESCOTO Chaplain Service: Spiritual Care Author Type: Video Machines Mechanic Type: [facility] Filed: 10/23/2023 14:11 Note Text: SPIRITUALCARE Spiritual Care Visit- Brief Note Name: Fran Parekh Date: October 23, 2023 Notes: While engaging in spiritual care rounds on the [facility] unit, I provided spiritual presence and bucolical support through empathetic care through an offer of prayers at the door. To contact the Spiritual Care Department: Please call [phone] or Page the On-Call Video Machines Mechanic at pager [phone]. Thank you for the opportunity to be of service. SIGNATURE: Chaplain Alphonse PATIENT NAME: Fran Parekh DATE: October 23, 2023 TIME: 10:00 AM This is an electronically created document. IF PRINTED, PLEASE DO NOT REMOVE FROM THE CHART OR MODIFY PRINTED COPY. [facility] HNO ID: [id number] Author: PATY GUZMAN RDMS Service: Radiology Author Type: Technologist Type: [facility] Filed: 10/23/2023 03:21 Note Text: Radiology Service [...] PATIENT PRESENTS WITH AN IMPLANTABLE OR ATTACHED EMAIL ENGINEER: No RADIOLOGY DEPARTMENT: Ultrasound PERIPHERAL IV DATA: Not applicable SIGNED BY: PATY GUZMAN RDMS October 23, 2023 3:21 AM [facility] HNO ID: [id number] Author: CARRINGTON LAWS RT(R) Service: Radiology Author Type: Technologist Type: [facility] Filed: 10/23/2023 02:45 Note Text: Radiology Service [...] PATIENT PRESENTS WITH AN IMPLANTABLE OR ATTACHED EMAIL ENGINEER: No RADIOLOGY DEPARTMENT: General X-ray: Exam(s) Completed: Chest X-Ray PERIPHERAL IV DATA: Not applicable SIGNED BY: RT Sindy(R) October 23, 2023 2:45 AM [facility] CBC panel Auto (Bld)on 10-22 Erythrocyte distribution width (RBC) [Ratio] 14.4 % Normal 11.5-15.0 [facility] [facility] Comment on above: Order Comment: Speci men Type: BLOOD SPECIMEN Ordering Facility: [facility] Address: [address] [place] [address] Performed By: #### P TTAC #### [facility] CLIA [id number] [address] [place] [address] [facility] Hematocrit (Bld) [Volume fraction] 42.6 % Normal 39.0-51.0 [facility] Comment on above: Order Comment: Speci men Type: BLOOD SPECIMEN Ordering Facility: [facility] Address: [address] [place] [address] Performed By: #### P TTAC #### [facility] CLIA [id number] [address] [place] [address] [place] Hemoglobin (Bld) [Mass/Vol] 14.5 g/dL Normal 13.0-17.0 [facility] Comment on above: Order Comment: Speci men Type: BLOOD SPECIMEN Ordering Facility: [facility] Address: [address] [place] [address] Performed By: #### P TTAC #### [facility] CLIA [id number] [address] [place] [address] MCH (RBC) [Entitic mass] 32.7 pg Normal 26.0-34.0 [facility] Comment on above: Order Comment: Speci men Type: BLOOD SPECIMEN Ordering Facility: [facility] Address: [address] [place] [address] Performed By: #### P TTAC #### [facility] CLIA [id number] [address] [place] [address] [place] MCHC (RBC) [Mass/Vol] 34.0 g/dL Normal 30.5-36.0 [facility] Comment on above: Order Comment: Speci men Type: BLOOD SPECIMEN Ordering Facility: [facility] Address: [address] [place] [address] Performed By: #### P TTAC #### [facility] CLIA [id number] [address] [place] [address] [place] MCV (RBC) [Entitic vol] 96.2 fL Normal 80.0-100.0 [facility] Comment on above: Order Comment: Speci men Type: BLOOD SPECIMEN Ordering Facility: [facility] Address: [address] [place] [address] Performed By: #### P TTAC #### [facility] CLIA [id number] [address] [place] [address] [place] Nucleated RBC (Bld) [#/Vol] 10*3/uL Normal <0.01 [facility] Comment on above: Order Comment: Speci men Type: BLOOD SPECIMEN Ordering Facility: [facility] Address: [address] [place] [address] Performed By: #### P TTAC #### [facility] CLIA [id number] [address] [place] [address] [place] Platelet mean volume (Bld) [Entitic vol] 10.1 fL Normal 9.0-12.7 [facility] Comment on above: Order Comment: Speci men Type: BLOOD SPECIMEN Ordering Facility: [facility] Address: [address] [place] [address] Performed By: #### P TTAC #### [facility] CLIA [id number] [address] [place] [address] [place] Platelets (Bld) [#/Vol] 184 10*3/uL Normal 150-400 [facility] Comment on above: Order Comment: Speci men Type: BLOOD SPECIMEN Ordering Facility: [facility] Address: [address] [place] [address] Performed By: #### P TTAC #### [facility] CLIA [id number] [address] [place] [address] [place] RBC (Bld) [#/Vol] 4.43 10*6/uL Normal 4.20-6.00 [facility] Comment on above: Order Comment: Speci men Type: BLOOD SPECIMEN Ordering Facility: [facility] Address: [address] [place] [address] Performed By: #### P TTAC #### [facility] CLIA [id number] [address] [place] [address] [place] WBC (Bld) [#/Vol] 9.53 10*3/uL Normal 3.70-11.00 [facility] Comment on above: Order Comment: Speci men Type: BLOOD SPECIMEN Ordering Facility: [facility] Address: [address] [place] [address] Performed By: #### P TTAC #### [facility] CLIA [id number] [address] [place] [address] [place] Comp Metab 2000 Pnl SerPlon 10-23-2023 Sodium [Moles/Vol] 143 mmol/L Normal 136-144 [facility] Comment on above: Order Comment: Speci men Type: BLOOD SPECIMEN Ordering Facility: [facility] Address: [address] [place] [address] Performed By: #### 3 3959-8, 3016-3, 81637-0, 40256-3 #### [facility] CLIA [id number] [address] [place] [address] [place] Order Comment: Speci men Type: VENOUS BLOOD SPECIMEN Ordering Facility: [facility] Address: [address] [place] [address] Performed By: #### 2 4344-4 #### [facility] CLIA [id number] [address] [place] [address] [place] Comprehensive metabolic 2000 panelon 10-23-2023 Albumin [Mass/Vol] 3.2 g/dL Low 3.9-4.9 [facility] Comment on above: Order Comment: Speci men Type: BLOOD SPECIMEN Ordering Facility: [facility] Address: [address] [place] [address] Performed By: #### 3 3959-8, 3016-3, 39614-0, 45273-2 #### [facility] CLIA [id number] [address] [place] [address] [place] ALP [Catalytic activity/Vol] 75 U/L Normal 38-113 [facility] Comment on above: Order Comment: Speci men Type: BLOOD SPECIMEN Ordering Facility: [facility] Address: [address] [place] [address], [place] [address] Performed By: #### 3 3959-8, 3016-3, 28113-9, 27166-3 #### [facility] CLIA [id number] [place] [address] [place] ALT [Catalytic activity/Vol] 18 U/L Normal 10-54 [facility] Comment on above: Order Comment: Speci men Type: BLOOD SPECIMEN Ordering Facility: [facility] Address: [address] [place] [address] Performed By: #### 3 3959-8, 3016-3, 59751-4, 85738-5 #### [facility] CLIA [id number] [address] [place] [address] [place] Anion gap [Moles/Vol] 11 mmol/L Normal 8-15 [facility] Comment on above: Order Comment: Speci men Type: BLOOD SPECIMEN Ordering Facility: [facility] Address: [facility] [place] [address] Performed By: #### 3 3959-8, 3016-3, 74378-5, 29936-8 #### [facility] CLIA [id number] [address] [place] [address] [place] AST [Catalytic activity/Vol] 19 U/L Normal 14-40 [facility] Comment on above: Order Comment: Speci men Type: BLOOD SPECIMEN Ordering Facility: [facility] Address: [facility] [place] [address] Performed By: #### 3 3959-8, 3016-3, 09740-0, 87367-9 #### [facility] CLIA [id number] [address] [place], [place] [address] [place] Bilirubin [Mass/Vol] 0.5 mg/dL Normal 0.2-1.3 [facility] Comment on above: Order Comment: Speci men Type: BLOOD SPECIMEN Ordering Facility: [facility] Address: [address] [place] [address] Performed By: #### 3 3959-8, 3016-3, 43732-7, 55296-8 #### [facility] CLIA [id number] [address] [place] [address] [place] Calcium [Mass/Vol] 8.5 mg/dL Normal 8.5-10.2 [facility] Comment on above: Order Comment: Speci men Type: BLOOD SPECIMEN Ordering Facility: [facility] Address: [address] [place] [address] Performed By: #### 3 3959-8, 3016-3, 37154-6, 95019-2 #### [facility] CLIA [id number] [address] [place] [address] [place] Chloride [Moles/Vol] 108 mmol/L High 98-107 [facility] Comment on above: Order Comment: Speci men Type: BLOOD SPECIMEN Ordering Facility: [facility] Address: [address] [place] [address] Performed By: #### 3 3959-8, 3016-3, 89831-2, 35465-7 #### [facility] CLIA [id number] [address] [place] [address] [place] CO2 [Moles/Vol] 24 mmol/L Normal 22-30 [facility] Comment on above: Order Comment: Speci men Type: BLOOD SPECIMEN Ordering Facility: [facility] Address: [address] [place] [address] Performed By: #### 3 3959-8, 3016-3, 17985-6, 32815-9 #### [facility] CLIA [id number] [address] [place] [address] [place] Creatinine [Mass/Vol] 1.51 mg/dL High 0.73-1.22 [facility] Comment on above: Order Comment: Speci men Type: BLOOD SPECIMEN Ordering Facility: [facility] Address: [address] [place] [address] Performed By: #### 3 3959-8, 3016-3, 93462-3, 05710-6 #### [facility] CLIA [id number] [address] [place] [address] [place] Creatinine and Glomerular filtration rate.predicted panel (S/P/Bld) 47 mL/min/1.73m??? Low >=60 [facility] Comment on above: Order Comment: Tiffanie rollins Type: BLOOD SPECIMEN Ordering Facility: [facility] Address: [address] [place] [address] Result Comment: Danika mated Glomerular Filtration Rate [...] GFR. Performed By: #### 3 3959-8, 3016-3, 81907-3, 10737-4 #### [facility] CLIA [id number] [place] [address] [place] Glucose [Mass/Vol] 137 mg/dL High 74-99 [facility] Comment on above: Order Comment: Tiffanie rollins Type: BLOOD SPECIMEN Ordering Facility: [facility] Address: [address] [place] [address] Result Comment: The [place] [employer] (ADA) provides guidance for cutoff [...] Standards of Medical Care in Diabetes 2016, [place] [employer]. Diabetes Care. 2016.39(Suppl 1). Performed By: #### 3 3959-8, 3016-3, 30727-5, 27813-3 #### [facility] CLIA [id number] [place] [address] [place] Potassium [Moles/Vol] 4.2 mmol/L Normal 3.7-5.1 [facility] Comment on above: Order Comment: Speci men Type: BLOOD SPECIMEN Ordering Facility: [facility] Address: [address] [place] [address] Performed By: #### 3 3959-8, 3016-3, 44869-3, 15101-9 #### [facility] CLIA [id number] [address] [place] [address] [place] Protein [Mass/Vol] 5.9 g/dL Low 6.3-8.0 [facility] Comment on above: Order Comment: Speci men Type: BLOOD SPECIMEN Ordering Facility: [facility] Address: [address] [place] [address] Performed By: #### 3 3959-8, 3016-3, 65932-2, 71940-7 #### [facility] CLIA [id number] [address] [place] [address] [place] Urea nitrogen [Mass/Vol] 24 mg/dL Normal 01-22 [facility] Comment on above: Order Comment: Speci men Type: BLOOD SPECIMEN Ordering Facility: [facility] Address: [address] [place] [address] Performed By: #### 3 3959-8, 3016-3, 77860-3, 52607-9 #### [facility] CLIA [id number] [address] [place] [address] [place] ECHOon 10-23-2023 Echocardiography Echocardiography Rep ort: Transthoracic Echo [facility] Date of service: 10/23/2023 10:14:42 AM Ordering physician: DONN RODRIGUEZ Indication: Acute pulmonary embolism to guide therapy Technologist: Judith Tarango [facility] Interpreting physician: Brian Hall MD PATIENT: Name: [...] * * Final (Updated) * * * [facility] : [id number] 17[employer]ng[employer]ynamicsSISUID Normal [facility] FLUABV+SARS-CoV-2+RSV Pnl Re sp DANNIELLE+probeon 10-23-2023 FLUABV+SARS-CoV-2+RSV Pnl Resp DANNIELLE+probe COVID 19 RESULT: Not detected The method used is RT-PCR or an equivalent NAAT method. Reference Range(the expected result in uninfected individuals): Not detected INFLUENZA A PCR: Not detected INFLUENZA B PCR: Not detected RSV PCR: Not detected Normal [facility] Comment on above: Performed By: #### 9 5941-1 ####[facility] [id number] [place] [address] [place] Fibrinogen PPP-mCncon 2023 Fibrinogen Coag (PPP) [Mass/Vol] 327 mg/dL Normal 200-400 [facility] Comment on above: Order Comment: Speci men Type: BLOOD SPECIMENOrdering Facility: [facility] Address: [address] [place] [address] Performed By: #### P TTAC, 3255-7 ####[facility] [id number] [address] [place] Gas and Carbon monoxide pane l (BldV)on 10-23-2023 Base excess Calc (BldV) [Moles/Vol] 0 mmol/L Normal 0-2 [facility] Comment on above: Order Comment: Speci men Type: VENOUS BLOOD SPECIMEN Ordering Facility: [facility] Address: [address] [place] [address] Performed By: #### 2 4344-4 #### [facility] CLIA [id number] [address] [place] [address] [place] Body temperature 98.06 [degF] Normal [facility] Comment on above: Order Comment: Speci men Type: VENOUS BLOOD SPECIMEN Ordering Facility: [facility] Address: [address] [place] [address] Performed By: #### 2 4344-4 #### [facility] CLIA [id number] [address] [place] [address] [place] Calcium.ionized (Bld) [Mass/Vol] 1.05 mmol/L Low 1.08-1.30 [facility] Comment on above: Order Comment: Speci men Type: VENOUS BLOOD SPECIMEN Ordering Facility: [facility] Address: [address] [place] [address] Performed By: #### 2 4344-4 #### [facility] CLIA [id number] [address] [place] [address] [place] Calcium.ionized adjusted to pH 7.4 (BldA) [Moles/Vol] 1.09 mmol/L Normal 1.08-1.30 [facility] Comment on above: Order Comment: Speci men Type: VENOUS BLOOD SPECIMEN Ordering Facility: [facility] Address: [address] [place] [address] Performed By: #### 2 4344-4 #### [facility] CLIA [id number] [address] [place] [address] [place] Carboxyhemoglobin (BldV) [Mass fraction] 2.4 % High 0.0-2.0 [facility] Comment on above: Order Comment: Speci men Type: VENOUS BLOOD SPECIMEN Ordering Facility: [facility] Address: [address] [place] [address] Result Comment: Carb oxyhemoglobin Reference Range for Smokers: 2.0-8.0% Performed By: #### 2 4344-4 #### [facility] CLIA [id number] [address] [place] [address] [place] Chloride [Moles/Vol] 114 mmol/L High 97-105 [facility] Comment on above: Order Comment: Speci men Type: VENOUS BLOOD SPECIMEN Ordering Facility: [facility] Address: [address] [place] [address] Performed By: #### 2 4344-4 #### [facility] CLIA [id number] [address] [place] [address] [place] CO2 (BldV) [Partial pressure] 32 mm[Hg] Low 42-55 [facility] Comment on above: Order Comment: Speci men Type: VENOUS BLOOD SPECIMEN Ordering Facility: [facility] Address: [address] [place] [address] Performed By: #### 2 4344-4 #### [facility] CLIA [id number] [address] [place] [address] [place] CO2 adjusted to patient's actual temperature (BldV) [Partial pressure] Normal [facility] Comment on above: Order Comment: Speci men Type: VENOUS BLOOD SPECIMEN Ordering Facility: [facility] Address: [address] [place] [address] Performed By: #### 2 4344-4 #### [facility] CLIA [id number] [address] [place] [address] [place] Glucose [Mass/Vol] 125 mg/dL High 60-105 [facility] Comment on above: Order Comment: Speci men Type: VENOUS BLOOD SPECIMEN Ordering Facility: [facility] Address: [address] [place] [address] Performed By: #### 2 4344-4 #### [facility] CLIA [id number] [address] [place] [address] [place] HCO3 (Bld) [Moles/Vol] 23 mmol/L Low 24-28 [facility] Comment on above: Order Comment: Speci men Type: VENOUS BLOOD SPECIMEN Ordering Facility: [facility] Address: [address] [place] [address] Performed By: #### 2 4344-4 #### [facility] CLIA [id number] [address] [place] [address] [place] Hematocrit (Bld) [Volume fraction] 46.3 % Normal 39.0-51.0 [facility] Comment on above: Order Comment: Speci men Type: VENOUS BLOOD SPECIMEN Ordering Facility: [facility] Address: [address] [place] [address] Performed By: #### 2 4344-4 #### [facility] CLIA [id number] [address] [place] [address] [place] Hemoglobin (Bld) [Mass/Vol] 15.1 g/dL Normal 13.0-17.0 [facility] Comment on above: Order Comment: Speci men Type: VENOUS BLOOD SPECIMEN Ordering Facility: [facility] Address: [address] [place] [address] Performed By: #### 2 4344-4 #### [facility] CLIA [id number] [address] [place] [address] [place] Lactate [Moles/Vol] 2.1 mmol/L Normal 0.5-2.2 [facility] Comment on above: Order Comment: Speci men Type: VENOUS BLOOD SPECIMEN Ordering Facility: [facility] Address: [address] [place] [address] Performed By: #### 2 4344-4 #### [facility] CLIA [id number] [address] [place] [address] [place] Methemoglobin (Bld) [Mass fraction] 0.8 % Normal 0.0-1.5 [facility] Comment on above: Order Comment: Speci men Type: VENOUS BLOOD SPECIMEN Ordering Facility: [facility] Address: [address] [place] [address] Performed By: #### 2 4344-4 #### [facility] CLIA [id number] [address] [place] [address] [place] O2 THERAPY RA=Room Air Normal [facility] Comment on above: Order Comment: Speci men Type: VENOUS BLOOD SPECIMEN Ordering Facility: [facility] Address: [address] [place] [address] Performed By: #### 2 4344-4 #### [facility] CLIA [id number] [address] [place] [address] [place] Oxygen (BldV) [Partial pressure] 70 mm[Hg] High 35-45 [facility] Comment on above: Order Comment: Speci men Type: VENOUS BLOOD SPECIMEN Ordering Facility: [facility] Address: [address] [place] [address] Performed By: #### 2 4344-4 #### [facility] CLIA [id number] [address] [place] [address] [place] Oxygen adjusted to patient's actual temperature (BldV) [Partial pressure] Normal [facility] Comment on above: Order Comment: Speci men Type: VENOUS BLOOD SPECIMEN Ordering Facility: [facility] Address: [address] [place] [address] Performed By: #### 2 4344-4 #### [facility] CLIA [id number] [address] [place] [address] [place] Oxygen saturation in Venous blood 94 % High 60-85 [facility] Comment on above: Order Comment: Speci men Type: VENOUS BLOOD SPECIMEN Ordering Facility: [facility] Address: [address] [place] [address] Performed By: #### 2 4344-4 #### [facility] CLIA [id number] [address] [place] [address] [place] Oxyhemoglobin (BldV) [Mass fraction] 91 % High 60-85 [facility] Comment on above: Order Comment: Speci men Type: VENOUS BLOOD SPECIMEN Ordering Facility: [facility] Address: [address] [place] [address] Performed By: #### 2 4344-4 #### [facility] CLIA [id number] [address] [place] [address] [place] pH (BldV) 7.47 [pH] High 7.32-7.42 [facility] Comment on above: Order Comment: Speci men Type: VENOUS BLOOD SPECIMEN Ordering Facility: [facility] Address: [address] [place] [address] Performed By: #### 2 4344-4 #### [facility] CLIA [id number] [address] [place] [address] [place] pH adjusted to patient's actual temperature (BldV) Normal [facility] Comment on above: Order Comment: Speci men Type: VENOUS BLOOD SPECIMEN Ordering Facility: [facility] Address: [address] [place] [address] Performed By: #### 2 4344-4 #### [facility] CLIA [id number] [address] [place] [address] [place] Potassium [Moles/Vol] 3.8 mmol/L Normal 3.5-5.0 [facility] Comment on above: Order Comment: Speci men Type: VENOUS BLOOD SPECIMEN Ordering Facility: [facility] Address: [address] [place] [address] Performed By: #### 2 4344-4 #### [facility] CLIA [id number] [address] [place] [address] [place] Sodium [Moles/Vol] 140 mmol/L Normal 136-144 [facility] Comment on above: Order Comment: Speci men Type: VENOUS BLOOD SPECIMEN Ordering Facility: [facility] Address: [address] [place] [address] Performed By: #### 2 4344-4 #### [facility] CLIA [id number] [address] [place] [address] [place] Base excess Calc (BldV) [Moles/Vol] 0 mmol/L Normal 0-2 [facility] Comment on above: Order Comment: Speci men Type: VENOUS BLOOD SPECIMEN Ordering Facility: [facility] Address: [address] [place] [address] Performed By: #### 2 4344-4 #### [facility] CLIA [id number] [address] [place] [address] [place] Body temperature 98.06 [degF] Normal [facility] Comment on above: Order Comment: Speci men Type: VENOUS BLOOD SPECIMEN Ordering Facility: [facility] Address: [address] [place] [address] Performed By: #### 2 4344-4 #### [facility] CLIA [id number] [address] [place] [address] [place] Calcium.ionized (Bld) [Mass/Vol] 1.14 mmol/L Normal 1.08-1.30 [facility] Comment on above: Order Comment: Speci men Type: VENOUS BLOOD SPECIMEN Ordering Facility: [facility] Address: [address] [place] [address] Performed By: #### 2 4344-4 #### [facility] CLIA [id number] [address] [place] [address] [place] Calcium.ionized adjusted to pH 7.4 (BldA) [Moles/Vol] 1.11 mmol/L Normal 1.08-1.30 [facility] Comment on above: Order Comment: Speci men Type: VENOUS BLOOD SPECIMEN Ordering Facility: [facility] Address: [address] [place] [address] Performed By: #### 2 4344-4 #### [facility] CLIA [id number] [address] [place] [address] [place] Carboxyhemoglobin (BldV) [Mass fraction] 2.0 % Normal 0.0-2.0 [facility] Comment on above: Order Comment: Speci men Type: VENOUS BLOOD SPECIMEN Ordering Facility: [facility] Address: [address] [place] [address] Result Comment: Carb oxyhemoglobin Reference Range for Smokers: 2.0-8.0% Performed By: #### 2 4344-4 #### [facility] CLIA [id number] [place] [address] [place] Chloride [Moles/Vol] 111 mmol/L High 97-105 [facility] Comment on above: Order Comment: Speci men Type: VENOUS BLOOD SPECIMEN Ordering Facility: [facility] Address: [address] [place] [address] Performed By: #### 2 4344-4 #### [facility] CLIA [id number] [address] [place] [address] [place] CO2 (BldV) [Partial pressure] 48 mm[Hg] Normal 42-55 [facility] Comment on above: Order Comment: Speci men Type: VENOUS BLOOD SPECIMEN Ordering Facility: [facility] Address: [address] [place] [address] Performed By: #### 2 4344-4 #### [facility] CLIA [id number] [address] [place] [address] [place] CO2 adjusted to patient's actual temperature (BldV) [Partial pressure] Normal [facility] Comment on above: Order Comment: Speci men Type: VENOUS BLOOD SPECIMEN Ordering Facility: [facility] Address: [address] [place] [address] Performed By: #### 2 4344-4 #### [facility] CLIA [id number] [address] [place] [address] [place] Glucose [Mass/Vol] 145 mg/dL High 60-105 [facility] Comment on above: Order Comment: Speci men Type: VENOUS BLOOD SPECIMEN Ordering Facility: [facility] Address: [address] [place] [address] Performed By: #### 2 4344-4 #### [facility] CLIA [id number] [address] [place] [address] [place] HCO3 (Bld) [Moles/Vol] 26 mmol/L Normal 24-28 [facility] Comment on above: Order Comment: Speci men Type: VENOUS BLOOD SPECIMEN Ordering Facility: [facility] Address: [address] [place] [address] Performed By: #### 2 4344-4 #### [facility] CLIA [id number] [address] [place] [address] [place] Hematocrit (Bld) [Volume fraction] 44.8 % Normal 39.0-51.0 [facility] Comment on above: Order Comment: Speci men Type: VENOUS BLOOD SPECIMEN Ordering Facility: [facility] Address: [address] [place] [address] Performed By: #### 2 4344-4 #### [facility] CLIA [id number] [address] [place] [address] [place] Hemoglobin (Bld) [Mass/Vol] 14.6 g/dL Normal 13.0-17.0 [facility] Comment on above: Order Comment: Speci men Type: VENOUS BLOOD SPECIMEN Ordering Facility: [facility] Address: [address] [place] [address] Performed By: #### 2 4344-4 #### [facility] CLIA [id number] [address] [place] [address] [place] Lactate [Moles/Vol] 2.7 mmol/L High 0.5-2.2 [facility] Comment on above: Order Comment: Speci men Type: VENOUS BLOOD SPECIMEN Ordering Facility: [facility] Address: [address] [place] [address] Performed By: #### 2 4344-4 #### [facility] CLIA [id number] [address] [place] [address] [place] LITERS 2 Liters/min Normal [facility] Comment on above: Order Comment: Speci men Type: VENOUS BLOOD SPECIMEN Ordering Facility: [facility] Address: [address] [place] [address] Performed By: #### 2 4344-4 #### [facility] CLIA [id number] [address] [place] [address] [place] Methemoglobin (Bld) [Mass fraction] 0.5 % Normal 0.0-1.5 [facility] Comment on above: Order Comment: Speci men Type: VENOUS BLOOD SPECIMEN Ordering Facility: [facility] Address: [address] [place] [address] Performed By: #### 2 4344-4 #### [facility] CLIA [id number] [address] [place] [address] [place] O2 THERAPY NC = Nasal Cannula Normal [facility] Comment on above: Order Comment: Speci men Type: VENOUS BLOOD SPECIMEN Ordering Facility: [facility] Address: [address] [place] [address] Performed By: #### 2 4344-4 #### [facility] CLIA [id number] [address] [place] [address] [place] Oxygen (BldV) [Partial pressure] 51 mm[Hg] High 35-45 [facility] Comment on above: Order Comment: Speci men Type: VENOUS BLOOD SPECIMEN Ordering Facility: [facility] Address: [address] [place] [address] Performed By: #### 2 4344-4 #### [facility] CLIA [id number] [address] [place] [address] [place] Oxygen adjusted to patient's actual temperature (BldV) [Partial pressure] Normal [facility] Comment on above: Order Comment: Speci men Type: VENOUS BLOOD SPECIMEN Ordering Facility: [facility] Address: [address] [place] [address] Performed By: #### 2 4344-4 #### [facility] CLIA [id number] [address] [place] [address] [place] Oxygen saturation in Venous blood 82 % Normal 60-85 [facility] Comment on above: Order Comment: Speci men Type: VENOUS BLOOD SPECIMEN Ordering Facility: [facility] Address: [address] [place] [address] Performed By: #### 2 4344-4 #### [facility] CLIA [id number] [address] [place] [address] [place] Oxyhemoglobin (BldV) [Mass fraction] 80 % Normal 60-85 [facility] Comment on above: Order Comment: Speci men Type: VENOUS BLOOD SPECIMEN Ordering Facility: [facility] Address: [address] [place] [address] Performed By: #### 2 4344-4 #### [facility] CLIA [id number] [address] [place] [address] [place] pH (BldV) 7.35 [pH] Normal 7.32-7.42 [facility] Comment on above: Order Comment: Speci men Type: VENOUS BLOOD SPECIMEN Ordering Facility: [facility] Address: [address] [place] [address] Performed By: #### 2 4344-4 #### [facility] CLIA [id number] [address] [place] [address] [place] pH adjusted to patient's actual temperature (BldV) Normal [facility] Comment on above: Order Comment: Speci men Type: VENOUS BLOOD SPECIMEN Ordering Facility: [facility] Address: [address] [place] [address] Performed By: #### 2 4344-4 #### [facility] CLIA [id number] [address] [place] [address] [place] Potassium [Moles/Vol] 4.0 mmol/L Normal 3.5-5.0 [facility] Comment on above: Order Comment: Speci men Type: VENOUS BLOOD SPECIMEN Ordering Facility: [facility] Address: [address] [place] [address] Performed By: #### 2 4344-4 #### [facility] CLIA [id number] [address] [place] [address] [place] HIGH SENSITIVITY TROPONIN To n 10-23-2023 Troponin T.cardiac High sensitivity method [Mass/Vol] 43 ng/L High <12 [facility] Comment on above: Order Comment: Speci men Type: BLOOD SPECIMEN Ordering Facility: [facility] Address: [address] [place] [address] Result Comment: When assessing risk for acute [...] MACE. Performed By: #### P TTAC #### [facility] CLIA [id number] [place] Troponin T.cardiac High sensitivity method [Mass/Vol] 52 ng/L High <12 [facility] Comment on above: Order Comment: Speci men Type: BLOOD SPECIMEN Ordering Facility: [facility] Address: [address] [place], [place] [address] [address] Result Comment: When assessing risk for acute [...] day MACE. Performed By: #### P TTA, 10943-1 #### [facility] CLIA [id number] [place] [id number] [place] HISTORY PHYSICALon HISTORY PHYSICAL HNO ID: [id number] Author: DONN RODRIGUEZ MD Service: Critical Care Author Type: Physician Type: H&P Filed: 10/23/2023 06:48 Note Text: [facility] SERVICE DATE: 10/23/2023 SERVICE TIME: 224 Admission Date: 10/23/2023 Subjective HPI: This is a 78 year old with acute saddle pulmonary embolus. His past medical history significant for angina, hypertension, hyperlipidemia, hypothyroid, obstructive sleep apnea, prediabetes, CKD. He presented to [facility] ED reporting dizziness and lightheadedness. He did [...] on heparin drip. He was transferred to [facility] ICU. He is hemodynamically stable upon arrival. [...] of skin of nose Dr. Chowdary in [place] Stage 3a chronic kidney disease (HCC) Venous insufficiency PAST SURGICAL HISTORY Procedure Laterality Date ARTHRP ACETBLR/PROX FEM PROSTC AGRFT/ALGRFT Right 06/03/2019 Hip replacement, total COLONOSCOPY FLX DX W/COLLJ SPEC WHEN PFRMD 04/21/11 Repeat 10 [id number] LASER GREENLIGHT prostate, [place] NEUROPLASTY AND/TRANSPOS MEDIAN [...] (DEFINITY), , INTRAVENOUS, DIRECTED PRN, Podlogar, Marilia, SENIOR COMMUNICATIONS ENGINEER.VP [employer]ER [employer] sodium chloride 0.9 % (flush) 10 mL (BD POSIFLUSH), 10 mL, INTRAVENOUS, DIRECTED PRN, Podlogar, Marilia, SENIOR COMMUNICATIONS ENGINEER.VP CUSTOMER SERVICE metoprolol succinate ER (TOPROL XL) 50 mg [...] Disp: 4 capsule, Rfl: 3 CPAP, AutoPAP [id number]. Mask per preference, tubing, filters, humidity. Lifetime Supplies. Dx: G47.33. Fax 30 day compliance report to [phone]., Disp: 1 Each, Rfl: 999 CPAP, Please [...] daily., Di (more content not included)... Normal [facility] HbA1c (Bld)on 10-23-2023 Average glucose Estimated from glycated hemoglobin (Bld) [Mass/Vol] 128 mg/dL Normal [facility] Comment on above: Order Comment: Tiffanie rollins Type: BLOOD SPECIMENOrdering Facility: [facility] Address: [address] [place] [address] Result Comment: eAG: (Estimated average glucose) is a calculated value from HgbA1c and is physician representative of the average blood glucose level in the last 2-3 month period. Performed By: #### 5 5454-3 ####[facility] [id number] [place] [address] [place] HbA1c (Bld) [Mass fraction] 6.1 % High 4.3-5.6 [facility] Comment on above: Order Comment: Tiffanie rollins Type: BLOOD SPECIMENOrdering Facility: [facility] Address: [address] [place] [address] Result Comment: Amer [place] Diabetes Association guidelines indicate that patients with HgbA1c in the range 5.7-6.4% are at increased risk for development of diabetes, and intervention by lifestyle modification may be beneficial. HgbA1c greater or equal to 6.5% is considered diagnostic of diabetes. Performed By: #### 5 5454-3 ####[facility] [id number] [place] [address] [place] Magnesium SerPl-mCncon 10-22 Magnesium [Mass/Vol] 1.8 mg/dL Normal 1.7-2.3 [facility] Comment on above: Order Comment: Tiffanie rollins Type: BLOOD SPECIMEN Ordering Facility: [facility] Address: [address] [place] [address] Performed By: #### 3 3959-8, 3016-3, 57403-3, 15798-0 #### [facility] CLIA [id number] [address] [place] [address] [place] NT-proBNP SerPl-mCncon 10-22 Natriuretic peptide.B prohormone N-Terminal [Mass/Vol] 2953 pg/mL High <450 [facility] Comment on above: Order Comment: Tiffanie rollins Type: BLOOD SPECIMEN Ordering Facility: [facility] Address: [address] [place] [address] Performed By: #### P [facility], 466[address]-5 #### [facility] CLIA [id number] [address] [place] [address] [place] PT panel Coag (PPP)on 2023 INR Coag (PPP) [Relative time] 1.0 {INR} Normal 0.9-1.3 [facility] Comment on above: Order Comment: Tiffanie rollins Type: VENOUS BLOOD SPECIMEN Ordering Facility: [facility] Address: [address] [place] [address] Result Comment: Yvonne min K Antagonist (VKA) Therapeutic Range: INR 2 to 3 (Target INR of 2.5) Note: For patients treated with VKA drugs, such as warfarin, the [place] [employer] 2012 Guideline recommends [...] Chest 2012, 141:7S-47S Saray RA, et al. [facility] 2017, 70: 252-289 Performed By: #### 2 4344-4 #### [facility] CLIA [id number] [address] [place], [place] [id number] [place] PT Coag (PPP) [Time] 10.8 s Normal 9.7-13.0 [facility] Comment on above: Order Comment: Tiffanie rollins Type: VENOUS BLOOD SPECIMEN Ordering Facility: [facility] Address: [address] [place] [address] Performed By: #### 2 4344-4 #### [facility] CLIA [id number] [place] [address] [place] PTT, ANTICOAGULANT THERAPYon 10-23-2023 aPTT Coag (PPP) [Time] 108.8 s High 23.0-32.4 [facility] Comment on above: Order Comment: Speci men Type: BLOOD SPECIMENOrdering Facility: [facility] Address: [address] [place] [address] Performed By: #### P TTAC ####[facility] [id number] [place] [address] [place] aPTT Coag (PPP) [Time] 100.7 s High 23.0-32.4 [facility] Comment on above: Order Comment: Speci men Type: BLOOD SPECIMENOrdering Facility: [facility] Address: [address] [place] [address] Performed By: #### P TTAC, 3255-7 ####[facility] [id number] [address] [place] aPTT Coag (PPP) [Time] 42.3 s High 23.0-32.4 [facility] Comment on above: Order Comment: Speci men Type: VENOUS BLOOD SPECIMEN Ordering Facility: [facility] Address: [address] [place] [address] Performed By: #### 2 4344-4 #### [facility] CLIA [id number] [place] Procalcitonin SerPl-mCncon 0 10-23-2023 Procalcitonin [Mass/Vol] 0.07 ng/mL Normal <0.09 [facility] Comment on above: Order Comment: Speci men Type: BLOOD SPECIMEN Ordering Facility: [facility] Address: [address] [place] [address] Result Comment: For a guided interpretation of test results, please visit the Change in Procalcitonin Calculator, [email or web address]. Performed By: #### 3 3959-8, 3016-3, 78273-7, 43624-4 #### [facility] CLIA [id number] [address] [place] [address] [place] STAPHYLOCOCCUS AUREUS AND MR SA SCREEN, PCR, NASALon 06-24-2024 S. aureus and MRSA panel DANNIELLE+probe (Nose) Not detected Normal Not Detected [facility] Comment on above: Order Comment: Speci ria Type: BLOOD SPECIMEN Ordering Facility: [facility] Address: [address] [place] [address] Performed By: #### P TTAC #### [facility] CLIA [id number] [address] [place] [id number] [facility] TSH SerPl-aCncon 10-23-2023 TSH Qn 4.860 m[IU]/L High 0.270-4.200 [facility] Comment on above: Order Comment: Speci men Type: BLOOD SPECIMEN Ordering Facility: [facility] Address: [address] [place] [address] Performed By: #### 3 3959-8, 3016-3, 60327-7, 87194-3 #### [facility] CLIA [id number] [facility] US DVT LOWER BILon 4 US [...] AM via verbal communication. --END OF FINDING-- Storage Worker: WILNER Transcribe Date/Time: Oct 23 2023 3:53A Dictated by : ALETHEA BREWSTER MD This examination was interpreted and the report reviewed and electronically signed by: ALETHEA BREWSTER MD on Oct 23 2023 4:14AM EST [id number] Normal [facility] XR CHEST 1V FRONTAL PORTon 0 [...] No evidence of an acute cardiopulmonary process. Storage Worker: PSCB Transcribe Date/Time: Oct 23 2023 3:19A Dictated by : AVRIL CARMEN MD This examination was interpreted and the report reviewed and electronically signed by: AVRIL CARMEN MD on Oct 23 2023 3:19AM EST [id number] Normal [facility] 12 Lead EKGon 10-22-2023 12 Lead EKG Normal [facility] BNP,B-Type NATRIURETIC PEPTI Odin 10-22-2023 Natriuretic peptide B (Bld) [Mass/Vol] 293.9 pg/mL High 0-100 [facility] Comment on above: Performed By: #### L 503.6620, L503.6005, L501.4020 ####[facility] [address] [place], [address] Basic Metabolic Profile (BMP )on 10-22-2023 BUN/CRE 13.3 RATIO Normal 10-20 [facility] Comment on above: Order Comment: 1Y Performed By: #### L 100.0100, L500.2500, L501.5425, L500.3400 ####[facility] [address] [place], [address] CA,Total 9.0 mg/dL Normal 8.5-10.1 [facility] Comment on above: Order Comment: 1Y Performed By: #### L 100.0100, L500.2500, L501.5425, L500.3400 ####[facility] [address] [place], [address] Chloride [Moles/Vol] 109 mmol/L High 98-107 [facility] Comment on above: Order Comment: 1Y Performed By: #### L 100.0100, L500.2500, L501.5425, L500.3400 ####[facility] [address] [facility] [address] CO2 [Moles/Vol] 22.0 mmol/L Normal 21.0-32.0 [facility] Comment on above: Order Comment: 1Y Performed By: #### L 100.0100, L500.2500, L501.5425, L500.3400 ####[facility] [address] [place], [address] Creatinine [Mass/Vol] 1.81 mg/dL High 0.70-1.30 [facility] Comment on above: Order Comment: 1Y Result Comment: The validity of the calculated GFR GFRAA in patients over70 years has not been determined. Clinical correlation isessential. Performed By: #### L 100.0100, L500.2500, L501.5425, L500.3400 ####[facility] [address] [place], [address] ECRCL 45.29 ml/min Normal [facility] Comment on above: Order Comment: 1Y Performed By: #### L 100.0100, L500.2500, L501.5425, L500.3400 ####[facility] [address] [place], [address] EST GFR - AA 47 mL/min Low >60 [facility] Comment on above: Order Comment: 1Y Result Comment: Afri can Swazi GFR Calc Performed By: #### L 100.0100, L500.2500, L501.5425, L500.3400 ####[facility] [address] [place], [address] GAP 9 Normal 5-15 [facility] Comment on above: Order Comment: 1Y Performed By: #### L 100.0100, L500.2500, L501.5425, L500.3400 ####[facility] [address] [place], [address] GFR/1.73 sq M.predicted among non-blacks MDRD (S/P/Bld) [Vol rate/Area] 39 mL/min/{1.73_m2} Low >60 [facility] Comment on above: Order Comment: 1Y Result Comment: Non- GFR Calc Performed By: #### L 100.0100, L500.2500, L501.5425, L500.3400 ####[facility] [address] [place], [address] Glucose [Mass/Vol] 177 mg/dL High 74-106 [facility] Comment on above: Order Comment: 1Y Result Comment: Fast ing Glucose result greater than or equal to 126 mg/dLsuggests DIABETES MELLITUS per A.D.A. criteria. Performed By: #### L 100.0100, L500.2500, L501.5425, L500.3400 ####[facility] [address] [place], [address] Potassium [Moles/Vol] 3.5 mmol/L Normal 3.5-5.1 [facility] Comment on above: Order Comment: 1Y Performed By: #### L 100.0100, L500.2500, L501.5425, L500.3400 ####[facility] [address] [place], [address] Sodium [Moles/Vol] 140 mmol/L Normal 136-145 [facility] Comment on above: Order Comment: 1Y Performed By: #### L 100.0100, L500.2500, L501.5425, L500.3400 ####[facility] [address] [place], [address] Urea nitrogen [Mass/Vol] 24 mg/dL High 7-18 [facility] Comment on above: Order Comment: 1Y Performed By: #### L 100.0100, L500.2500, L501.5425, L500.3400 ####[facility] [address] [place], [address] Brain/Head without Contrasto n 10-22-2023 Brain/Head without Contrast Normal [facility] CBC W/Diff, Automatedon 06- Absolute Lymph 2.32 X10 3/uL Normal 0.83-4.51 [facility] Comment on above: Performed By: #### L 100.0100, L500.2500, L501.5425, L500.3400 ####[facility] [address] [place], [address] Absolute Neut 6.2 X10 3/uL Normal 2.0-7.7 [facility] Comment on above: Performed By: #### L 100.0100, L500.2500, L501.5425, L500.3400 ####[facility] [address] [place], [address] Basophils/100 WBC (Bld) 0.5 % Normal 0-1 [facility] Comment on above: Performed By: #### L 100.0100, L500.2500, L501.5425, L500.3400 ####[facility] [address] [place], [address] Eosinophils/100 WBC (Bld) 1.2 % Normal 0-5 [facility] Comment on above: Performed By: #### L 100.0100, L500.2500, L501.5425, L500.3400 ####[facility] [address] [place], [address] Erythrocyte distribution width (RBC) [Ratio] 14.5 % Normal 11.6-14.6 [facility] Comment on above: Performed By: #### L 100.0100, L500.2500, L501.5425, L500.3400 ####[facility] [address] [place], [address] Hematocrit (Bld) [Volume fraction] 48.2 % Normal 40-54 [facility] Comment on above: Performed By: #### L 100.0100, L500.2500, L501.5425, L500.3400 ####[facility] [address] [place], [address] Hemoglobin (Bld) [Mass/Vol] 16.2 g/dL Normal 13.0-16.5 [facility] Comment on above: Performed By: #### L 100.0100, L500.2500, L501.5425, L500.3400 ####[facility] [address] [place], [address] IG% 0.300 Normal 0.0-0.9 [facility] Comment on above: Result Comment: IG% - Immature Granulocytes (promyelocytes, myelocytes andmetamyelocytes) > 1% indicates that a LEFT SHIFT is Present. Performed By: #### L 100.0100, L500.2500, L501.5425, L500.3400 ####[facility] [address] [place], [address] Lymphocytes/100 WBC (Bld) 24.0 % Normal 19-41 [facility] Comment on above: Performed By: #### L 100.0100, L500.2500, L501.5425, L500.3400 ####[facility] [address] [place], [address] MCH (RBC) [Entitic mass] 32.0 pg Normal 27.0-32.0 [facility] Comment on above: Performed By: #### L 100.0100, L500.2500, L501.5425, L500.3400 ####[facility] [address] [place], [address] MCHC (RBC) [Mass/Vol] 33.6 g/dL Normal 32-36 [facility] Comment on above: Performed By: #### L 100.0100, L500.2500, L501.5425, L500.3400 ####[facility] [address] [place], [address] MCV (RBC) [Entitic vol] 95.3 fL High 80-94 [facility] Comment on above: Performed By: #### L 100.0100, L500.2500, L501.5425, L500.3400 ####[facility] [address] [place], [address] Monocytes/100 WBC (Bld) 10.0 % Normal 0-10 [facility] Comment on above: Performed By: #### L 100.0100, L500.2500, L501.5425, L500.3400 ####[facility] [address] [place], [address] Neutrophils/100 WBC (Bld) 64.0 % Normal 47-70 [facility] Comment on above: Performed By: #### L 100.0100, L500.2500, L501.5425, L500.3400 ####[facility] [address] [place], [address] Nucleated RBC (Bld) [#/Vol] 0 10*3/uL Normal 0-5 [facility] Comment on above: Performed By: #### L 100.0100, L500.2500, L501.5425, L500.3400 ####[facility] [address] [place], [address] Platelet mean volume (Bld) [Entitic vol] 9.6 fL Normal 6.2-12.0 [facility] Comment on above: Performed By: #### L 100.0100, L500.2500, L501.5425, L500.3400 ####[facility] [address] [place], [address] Platelets (Bld) [#/Vol] 204 10*3/uL Normal 150-450 [facility] Comment on above: Performed By: #### L 100.0100, L500.2500, L501.5425, L500.3400 ####[facility] [address] [place], [address] RBC (Bld) [#/Vol] 5.06 10*6/uL Normal 4.6-6.2 [facility] Comment on above: Performed By: #### L 100.0100, L500.2500, L501.5425, L500.3400 ####[facility] [address] [place], [address] RDW SD 49.0 fl High 35.1-43.9 [facility] Comment on above: Performed By: #### L 100.0100, L500.2500, L501.5425, L500.3400 ####[facility] [address] [place], [address] WBC (Bld) [#/Vol] 9.7 10*3/uL Normal 4.4-11.0 [facility] Comment on above: Performed By: #### L 100.0100, L500.2500, L501.5425, L500.3400 ####[facility] [address] [place], [address] CTA Chest W/WO Contraston CTA Chest W/WO Contrast Normal [facility] Chest 1 View (Portable)on Chest 1 View (Portable) Normal [facility] Emergency Department Summary on 10-22-2023 Emergency Department Summary Normal [facility] L501.4020on 10-22-2023 TROPONIN-I HS 128 pg/mL Invalid Interpretation Code 3.0-78.0 [facility] Comment on above: Order Comment: 'TROP ' Serial specimen #1, #2 or #3: 3 Result Comment: Crit ical Result(s) Called at: 18:15:47 10/22/2023 by:POPPY HANCOCK. TO OSEAS TRENT RN ER Results read back bysame. Please Note: New Test Units and Gender Specific Reference Ranges. For more information see Policy Stat Procedure [place] High Sensitivity Troponin (TNIH) and attachments. Performed By: #### L 503.6620, L503.6005, L501.4020 ####[facility] [address] [place], [address] TROPONIN-I HS 77 pg/mL Normal 3.0-78.0 [facility] Comment on above: Result Comment: Plea se Note: New Test Units and Gender Specific Reference Ranges. For more information see Policy Stat Procedure [place] High Sensitivity Troponin (TNIH) and attachments. Performed By: #### L 501.4020 ####[facility] [address] [place], [address] L501.5425on 10-22-2023 TROPONIN-I HS 38 pg/mL Normal 3.0-78.0 [facility] Comment on above: Order Comment: 1Y Result Comment: Plea se Note: New Test Units and Gender Specific Reference Ranges. For more information see Policy Stat Procedure [place] High Sensitivity Troponin (TNIH) and attachments. Performed By: #### L 100.0100, L500.2500, L501.5425, L500.3400 ####[facility] [address] [place], [address] Lactic Acidon 10-22-2023 Lactate [Moles/Vol] 1.6 mmol/L Normal 0.4-1.9 [facility] Comment on above: Performed By: #### L 503.6005 ####[facility] [address] [place], [address] Lactate [Moles/Vol] 2.3 mmol/L Invalid Interpretation Code 0.4-1.9 [facility] Comment on above: Order Comment: Y Result Comment: Crit ical Result(s) Called at: 18:16:56 10/22/2023 by:POPPY HANCOCK. 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 Performed By: #### L 503.6620, L503.6005, L501.4020 ####[facility] [address] [place], [address] Liver Profileon 10-22-2023 Albumin [Mass/Vol] 3.3 g/dL Normal 3.2-5.0 [facility] Comment on above: Order Comment: 1Y Performed By: #### L 100.0100, L500.2500, L501.5425, L500.3400 ####[facility] [address] [place], [address] ALK P 88 U/L Normal 45-117 [facility] Comment on above: Order Comment: 1Y Performed By: #### L 100.0100, L500.2500, L501.5425, L500.3400 ####[facility] [address] [place], [address] ALT [Catalytic activity/Vol] 28 U/L Normal 16-61 [facility] Comment on above: Order Comment: 1Y Performed By: #### L 100.0100, L500.2500, L501.5425, L500.3400 ####[facility] [address] [place], [address] AST [Catalytic activity/Vol] 23 U/L Normal 15-37 [facility] Comment on above: Order Comment: 1Y Performed By: #### L 100.0100, L500.2500, L501.5425, L500.3400 ####[facility] [address] [place], [address] Bilirubin [Mass/Vol] 1.10 mg/dL High 0.20-1.00 [facility] Comment on above: Order Comment: 1Y Result Comment: For patients on eltrombopag therapy, use of Dimension [place] TBIL is not recommended. Performed By: #### L 100.0100, L500.2500, L501.5425, L500.3400 ####[facility] [address] [place], [address] Bilirubin.direct [Mass/Vol] 0.26 mg/dL Normal 0.00-0.30 [facility] Comment on above: Order Comment: 1Y Performed By: #### L 100.0100, L500.2500, L501.5425, L500.3400 ####[facility] [address] [place], [address] Globulin (S) [Mass/Vol] 3.8 g/dL Normal 2.2-4.2 [facility] Comment on above: Order Comment: 1Y Performed By: #### L 100.0100, L500.2500, L501.5425, L500.3400 ####[facility] [address] [place], [address] T PROT 7.1 g/dL Normal 6.4-8.2 [facility] Comment on above: Order Comment: 1Y Performed By: #### L 100.0100, L500.2500, L501.5425, L500.3400 ####[facility] [address] [place], [address] Partial Thromboplast Timeon 10-22-2023 aPTT Coag (Bld) [Time] s Invalid Interpretation Code 24.1-36.2 [facility] Comment on above: Result Comment: CRIT ICAL VALUE VERIFIED. CALLED TO AIDAN MARTINEZ10/22/[id number] Alexander Carlson.RESULTS READ BACK BY SAME . Performed By: #### L 300.4310 ####[facility] [address] [place], [address] aPTT Coag (Bld) [Time] 27.2 s Normal 24.1-36.2 [facility] Comment on above: Performed By: #### L 300.3900, L300.4310 ####[facility] [address] [place], [address] Prothrombin Time w/INRon INR Coag (PPP) [Relative time] 1.1 {INR} Normal [facility] Comment on above: Performed By: #### L 300.3900, L300.4310 ####[facility] [address], [address] PT Coag (PPP) [Time] 14.0 s Normal 11.7-14.9 [facility] Comment on above: Performed By: #### L 300.3900, L300.4310 ####[facility] [address] [place], [address] XR Lumbar spine 3 Viewson IMPRESSION: DEGENERATIVE CHANGES DESCRIBED Storage Worker: WILNER Transcribe Date/Time: May 15 2023 12:57P Dictated by : BAKARI MYERS MD This examination was interpreted and the report reviewed and electronically signed by: BAKARI MYERS MD on May 15 2023 12:59PM [facility] DIVISION OF RADIOLOGY * * *Final Report* [...] appear unremarkable IMPRESSION IMPRESSION: DEGENERATIVE CHANGES DESCRIBED Storage Worker: PSCB Transcribe Date/Time: May 15 2023 12:57P Dictated by : BAKARI MYERS MD This examination was interpreted and the report reviewed and electronically signed by: BAKARI MYERS MD on May 15 2023 12:59PM EST [facility] Radiology Study observation (narrative) [facility] XR Lumbar spine 3 ViewsOrder ed By: Ccf Provider on 05-15-2023 [facility] Dermatopathologyon Dermatopathology Name FRAN PAREKH Pathologist: ASIF AHUMADA MD Date of Procedure: 01/05/2023 Date Received: 01/06/2023 Date Reported 01/09/2023 Submitting Physician: BRUNA CHOWDARY CNP Location: [facility] Other External # FINAL DIAGNOSIS SKIN, LEFT UPPER ARM, SHAVE BIOPSY: LENTIGO AND BENIGN KERATOSIS, 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 Electronically Signed Out by ASIF AHUMADA M.D. Electronically Signed Out By ASIF AHUMADA MD/[facility] By the signature on this report, the individual or group listed as making the Final Interpretation/Diagnosis certifies that they have reviewed this case. Diagnostic interpretation performed at [facility] [id number], [facility] [address] Microscopic Description: There is lentiginous hyperplasia of the epidermis, with mild acanthosis and basal layer pigmentation. There are areas of papillomatosis and acanthosis. A step section was performed. Clinical History: MM vs. other. Shave Biopsy. ([facility]) Specimens Submitted As: A: SKIN, LEFT UPPER ARM Gross Description: Received in formalin is one oconnor-brown piece of skin measuring [id number]. The specimen is inked and embedded in toto. /01/06/2023 [facility] Dermat[facility] [place] [id number] [place] [address], [facility] [address] Normal [facility] Comment on above: Performed By: #### D #### Dermatopathology ECHOon 11-07-2022 [facility] LVEF TRANSTHORACIC ECHOon LV Ejection Fraction 59 % [facility] CBC panel Auto (Bld)on 11-02 Erythrocyte distribution width (RBC) [Ratio] 13.2 % 11.5 - 15.0 % [facility] Hematocrit (Bld) [Volume fraction] 47.7 % 39.0 - 51.0 % [facility] Hemoglobin (Bld) [Mass/Vol] 15.9 g/dL 13.0 - 17.0 g/dL [facility] MCH (RBC) [Entitic mass] 31.7 pg 26.0 - 34.0 pg [facility] MCHC (RBC) [Mass/Vol] 33.3 g/dL 30.5 - 36.0 g/dL [facility] MCV (RBC) [Entitic vol] 95.2 fL 80.0 - 100.0 fL [facility] Nucleated RBC (Bld) [#/Vol] <0.01 k/uL [facility] Platelet mean volume (Bld) [Entitic vol] 10.1 fL 9.0 - 12.7 fL [facility] Platelets (Bld) [#/Vol] 235 10*3/uL 150 - 400 k/uL [facility] RBC (Bld) [#/Vol] 5.01 10*6/uL 4.20 - 6.0 0 m/uL [facility] WBC (Bld) [#/Vol] 7.46 10*3/uL 3.70 - 11.00 k/uL [facility] Comprehensive metabolic 2000 panelon 11-02-2022 Albumin [Mass/Vol] 3.7 g/dL Low 3.9 - 4.9 g/dL [facility] ALP [Catalytic activity/Vol] 83 U/L 38 - 113 U/L [facility] ALT [Catalytic activity/Vol] 27 U/L 10 - 54 U/L [facility] Anion gap [Moles/Vol] 11 mmol/L 9 - 18 mmol/L [facility] AST [Catalytic activity/Vol] 26 U/L 14 - 40 U/L [facility] Bilirubin [Mass/Vol] 0.5 mg/dL 0.2 - 1 .3 mg/dL [facility] Calcium [Mass/Vol] 9.1 mg/dL 8.5 - 10. 2 mg/dL [facility] Chloride [Moles/Vol] 104 mmol/L 97 - 10 5 mmol/L [facility] CO2 [Moles/Vol] 24 mmol/L 22 - 30 mmol/L [facility] Creatinine [Mass/Vol] 1.36 mg/dL High 0.73 - 1.22 mg/dL [facility] Estimated Glomerular Filtration Rate 53 mL/min/1.73m Low >=60 mL/min/1.73 m [facility] Glucose [Mass/Vol] 116 mg/dL High 74 - 99 mg/dL [facility] Potassium [Moles/Vol] 4.5 mmol/L 3.7 - 5.1 mmol/L [facility] Protein [Mass/Vol] 6.4 g/dL 6.3 - 8.0 g/dL [facility] Sodium [Moles/Vol] 139 mmol/L 136 - 144 mmol/L [facility] Urea nitrogen [Mass/Vol] 20 mg/dL 9 - 24 mg/dL [facility] HbA1c (Bld)on 11-02-2022 Average glucose Estimated from glycated hemoglobin (Bld) [Mass/Vol] 126 mg/dL [facility] HbA1c (Bld) [Mass fraction] 6.0 % High 4.3 - 5.6 % [facility] Lipid 1996 panelon 3 Cholesterol [Mass/Vol] 145 mg/dL <200 mg/dL [facility] Cholesterol in HDL [Mass/Vol] 31 mg/dL Low >39 mg/dL [facility] Cholesterol in LDL [Mass/Vol] 70 mg/dL <100 mg/dL [facility] Cholesterol in LDL/Cholesterol in HDL [Mass ratio] 2.26 {ratio} <2.54 [facility] Cholesterol in VLDL [Mass/Vol] 44 mg/dL High <30 mg/dL [facility] Cholesterol non HDL [Mass/Vol] 114 mg/dL <130 mg/dL [facility] Cholesterol.total/Chol esterol in HDL [Mass ratio] 4.68 {ratio} <5.10 [facility] Fasting Time 13 hrs [facility] Triglyceride [Mass/Vol] 221 mg/dL High <150 mg/dL [facility] TSH BLDon 11-02-2022 TSH Qn 1.850 m[IU]/L 0.270 - 4.200 mIU/L [facility] Comprehensive metabolic 2000 panelon 04-13-2022 Albumin [Mass/Vol] 3.9 g/dL 3.9 - 4.9 g/dL [facility] ALP [Catalytic activity/Vol] 69 U/L 38 - 113 U/L [facility] ALT [Catalytic activity/Vol] 22 U/L 10 - 54 U/L [facility] Anion gap [Moles/Vol] 11 mmol/L 9 - 18 mmol/L [facility] AST [Catalytic activity/Vol] 25 U/L 14 - 40 U/L [facility] Bilirubin [Mass/Vol] 0.5 mg/dL 0.2 - 1 .3 mg/dL [facility] Calcium [Mass/Vol] 9.1 mg/dL 8.5 - 10. 2 mg/dL [facility] Chloride [Moles/Vol] 108 mmol/L High 97 - 10 5 mmol/L [facility] CO2 [Moles/Vol] 22 mmol/L 22 - 30 mmol/L [facility] Creatinine [Mass/Vol] 1.37 mg/dL High 0.73 - 1.22 mg/dL [facility] Estimated Glomerular Filtration Rate 53 mL/min/1.73m Low >=60 mL/min/1.73 m [facility] Glucose [Mass/Vol] 109 mg/dL High 74 - 99 mg/dL [facility] Potassium [Moles/Vol] 4.4 mmol/L 3.7 - 5.1 mmol/L [facility] Protein [Mass/Vol] 6.8 g/dL 6.3 - 8.0 g/dL [facility] Sodium [Moles/Vol] 141 mmol/L 136 - 144 mmol/L [facility] Urea nitrogen [Mass/Vol] 22 mg/dL 9 - 24 mg/dL [facility] HbA1c (Bld)on 07-14-2021 Average glucose Estimated from glycated hemoglobin (Bld) [Mass/Vol] 128 mg/dL [facility] HbA1c (Bld) [Mass fraction] 6.1 % High 4.3 - 5.6 % [facility] Vital Signs Date Time Vital Sign Value Performing Clinician Cparice jalloh 10-08-2024 09:35-0400 Body mass index (BMI) [Ratio] 42.61 kg/m2 Marilia Podlogar SENIOR COMMUNICATIONS ENGINEER.VP [employer] Work Phone: [facility] 10-08-2024 09:35-0400 Body weight 132.9 kg Marilia Podlogar SENIOR COMMUNICATIONS ENGINEER.VP CUST[employer]ER [employer] Work Phone: [facility] 10-08-2024 09:35-0400 Diastolic blood pressure 76 mm[Hg] Marilia Podlogar SENIOR COMMUNICATIONS ENGINEER.VP CUST[employer]ER SERVICE Work Phone: [facility] 10-08-2024 09:35-0400 Heart rate 58 /min Marilia Podlogar SENIOR COMMUNICATIONS ENGINEER.VP CUSTOMER SERVICE Work Phone: [facility] 10-08-2024 09:35-0400 Respiratory rate 18 /min Marilia Podlogar SENIOR COMMUNICATIONS ENGINEER.VP CUST[employer]ER SERV[employer] Work Phone: [facility] 10-08-2024 09:35-0400 SaO2% (BldA) [Mass fraction] 98 % Marilia Podlogar SENIOR COMMUNICATIONS ENGINEER.VP CUSTOMER SERVICE Work Phone: [facility] 10-08-2024 09:35-0400 Systolic blood pressure 118 mm[Hg] Marilia Podlogar SENIOR COMMUNICATIONS ENGINEER.VP CUSTOMER SERVICE Work Phone: [facility] 10-07-2024 13:40-0400 Body temperature 98.1 [degF] Dr. Salvador Diaz MD Work Phone: [facility] 10-07-2024 13:40-0400 Diastolic blood pressure 80 mm[Hg] Dr. Salvador Diaz MD Work Phone: [facility] 10-07-2024 13:40-0400 Heart rate 48 /min Dr. Salvador Diaz MD Work Phone: [facility] 10-07-2024 13:40-0400 Respiratory rate 18 /min Dr. Salvador Diaz MD Work Phone: [facility] 10-07-2024 13:40-0400 SaO2% (BldA) [Mass fraction] 96 % Dr. Salvador Diaz MD Work Phone: 8(090)452-288609 [place] [address] 10-07-2024 13:40-0400 Systolic blood pressure 137 mm[Hg] Dr. Salvador Diaz MD Work Phone: 8(217)347-096409 [place] [address] 10-07-2024 10:53-0400 Body height 177.[address] Salvador Diaz MD Work Phone: 6(430)978-504409 [place] [address] 10-07-2024 10:53-0400 Body mass index (BMI) [Ratio] 41.5 kg/m2 Dr. Salvador Diaz MD Work Phone: 2(442)713-986909 [place] [address] 10-07-2024 10:53-0400 Body weight 131.[address] Salvador Diaz MD Work Phone: 7(171)183-899309 [place] [address] 09-17-2024 09:36-0400 Body height 177.[address] Salvador Diaz MD Work Phone: 6(812)131-845509 [place] [address] 09-17-2024 09:36-0400 Body mass index (BMI) [Ratio] 42.3 kg/m2 Dr. Salvador Diaz MD Work Phone: 8(462)148-340209 [place] [address] 09-17-2024 09:36-0400 Body weight 133.[address] Salvador Diaz MD Work Phone: 8(065)594-862009 [place] [address] 08-31-2024 13:47-0400 Diastolic blood pressure 78 mm[Hg] Dr. Salvador Diaz MD Work Phone: 2(669)753-207609 [place] [address] 08-31-2024 13:47-0400 Heart rate 78 /min Dr. Salvador Diaz MD Work Phone: 0(147)782-683409 [place] [address] 08-31-2024 13:47-0400 Respiratory rate 16 /min Dr. Salvador Diaz MD Work Phone: 2(359)050-968609 [place] [address] 08-31-2024 13:47-0400 SaO2% (BldA) [Mass fraction] 98 % Dr. Salvador Diaz MD Work Phone: [facility] 08-31-2024 13:47-0400 Systolic blood pressure 134 mm[Hg] Dr. Salvador Diaz MD Work Phone: [facility] 08-31-2024 11:25-0400 Body mass index (BMI) [Ratio] 43 kg/m2 Dr. Salvador Diaz MD Work Phone: [facility] 08-31-2024 11:25-0400 Body weight 136.[address] Salvador Diaz MD Work Phone: [facility] 08-31-2024 11:23-0400 Body temperature 97.7 [degF] Dr. Salvador Diaz MD Work Phone: [facility] 08-13-2024 11:45-0400 Body height 176.6 cm Marilia Podlogar SENIOR COMMUNICATIONS ENGINEER.VP CUSTOMER SERVICE Work Phone: [facility] 08-13-2024 11:45-0400 Body mass index (BMI) [Ratio] 42.88 kg/m2 Marilia Podlogar SENIOR COMMUNICATIONS ENGINEER.VP CUSTOMER SERVICE Work Phone: [facility] 08-13-2024 11:45-0400 Body weight 133.72 kg Marilia Podlogar SENIOR COMMUNICATIONS ENGINEER.VP CUSTOMER SERVICE Work Phone: [facility] 08-13-2024 11:45-0400 Diastolic blood pressure 82 mm[Hg] Marilia Podlogar SENIOR COMMUNICATIONS ENGINEER.VP CUSTOMER SERVICE Work Phone: [facility] 08-13-2024 11:45-0400 Heart rate 65 /min Marilia Podlogar SENIOR COMMUNICATIONS ENGINEER.VP CUSTOMER SERVICE Work Phone: [facility] 08-13-2024 11:45-0400 Respiratory rate 18 /min Marilia Podlogar SENIOR COMMUNICATIONS ENGINEER.VP CUSTOMER SERVICE Work Phone: [facility] 08-13-2024 11:45-0400 SaO2% (BldA) [Mass fraction] 95 % Marilia Podlogar SENIOR COMMUNICATIONS ENGINEER.VP CUSTOMER SERVICE Work Phone: 1(006)495-979048 [place] [address] 08-13-2024 11:45-0400 Systolic blood pressure 118 mm[Hg] Marilia Podlognarciso SENIOR COMMUNICATIONS ENGINEER.VP CUSTOMER SERVICE Work Phone: 5(551)274-201292 [place] [address] 07-04-2024 11:22-0500 Body temperature 97.5 [degF] Dr. Salvador Diaz MD Work Phone: 8(447)691-323529 [place] [address] 07-04-2024 11:22-0500 Diastolic blood pressure 59 mm[Hg] Dr. Salvador Diaz MD Work Phone: 1(825)717-556509 [place] [address] 07-04-2024 11:22-0500 Heart rate 59 /min Dr. Salvador Diaz MD Work Phone: 8(957)460-686609 [place] [address] 07-04-2024 11:22-0500 Respiratory rate 16 /min Dr. Salvador Diaz MD Work Phone: 0(508)490-364609 [place] [address] 07-04-2024 11:22-0500 SaO2% (BldA) [Mass fraction] 96 % Dr. Salvador Diaz MD Work Phone: 8(554)033-047629 [place] [address] 07-04-2024 11:22-0500 Systolic blood pressure 114 mm[Hg] Dr. Salvador Diaz MD Work Phone: 3(104)112-077509 [place] [address] 07-04-2024 08:49-0500 Body height 177.[address] Salvador Diaz MD Work Phone: 1(330)044-700009 [place] [address] 07-04-2024 08:49-0500 Body mass index (BMI) [Ratio] 42 kg/m2 Dr. Salvador Diaz MD Work Phone: 5(100)242-272709 [place] [address] 07-04-2024 08:49-0500 Body weight [address] Salvador Diaz MD Work Phone: 1(492)541-389809 [place] [address] 04-01-2024 11:45-0500 Body mass index (BMI) [Ratio] 38.45 kg/m2 Marilia Podlognarciso SENIOR COMMUNICATIONS ENGINEER.VP CUSTOMER SERVICE Work Phone: 2(739)933-945392 [place] [address] 04-01-2024 11:45-0500 Body temperature 97.9 [degF] Marilia Podlogar SENIOR COMMUNICATIONS ENGINEER.VP CUSTOMER SERVICE Work Phone: [facility] 04-01-2024 11:45-0500 Body weight 128.6 kg Marilia Podlogar SENIOR COMMUNICATIONS ENGINEER.VP CUSTOMER SERVICE Work Phone: [facility] 04-01-2024 11:45-0500 Diastolic blood pressure 82 mm[Hg] Marilia Podlogar SENIOR COMMUNICATIONS ENGINEER.VP CUSTOMER SERVICE Work Phone: [facility] 04-01-2024 11:45-0500 Heart rate 59 /min Marilia Podlogar SENIOR COMMUNICATIONS ENGINEER.VP CUSTOMER SERVICE Work Phone: [facility] 04-01-2024 11:45-0500 Respiratory rate 18 /min Marilia Podlogar SENIOR COMMUNICATIONS ENGINEER.VP CUSTOMER SERVICE Work Phone: [facility] 04-01-2024 11:45-0500 SaO2% (BldA) [Mass fraction] 96 % Marilia Podlogar SENIOR COMMUNICATIONS ENGINEER.VP CUSTOMER SERVICE Work Phone: [facility] 04-01-2024 11:45-0500 Systolic blood pressure 138 mm[Hg] Marilia Podlogar SENIOR COMMUNICATIONS ENGINEER.VP CUSTOMER SERVICE Work Phone: [facility] 03-28-2024 14:00-0500 Body temperature 97.8 [degF] Dr. Salvador Diaz MD Work Phone: [facility] 03-28-2024 14:00-0500 Diastolic blood pressure 75 mm[Hg] Dr. Salvador Diaz MD Work Phone: [facility] 03-28-2024 14:00-0500 Heart rate 62 /min Dr. Salvador Diaz MD Work Phone: [facility] 03-28-2024 14:00-0500 Respiratory rate 16 /min Dr. Salvador Diaz MD Work Phone: [facility] 03-28-2024 14:00-0500 SaO2% (BldA) [Mass fraction] 96 % Dr. Salvador Diaz MD Work Phone: [facility] 03-28-2024 14:00-0500 Systolic blood pressure 125 mm[Hg] Dr. Salvador Diaz MD Work Phone: [facility] 03-27-2024 11:14-0500 Body mass index (BMI) [Ratio] 41.2 kg/m2 Dr. Salvador Diaz MD Work Phone: [facility] 03-27-2024 11:14-0500 Body weight 130.[address] Salvador Diaz MD Work Phone: [facility] 02-14-2024 11:25-0400 Body mass index (BMI) [Ratio] 39.53 kg/m2 Marilia Podlogar SENIOR COMMUNICATIONS ENGINEER.VP CUSTOMER SERVICE Work Phone: [facility] 02-14-2024 11:25-0400 Body weight 132.2 kg Marilia Podlogar SENIOR COMMUNICATIONS ENGINEER.VP CUSTOMER SERVICE Work Phone: [facility] 02-14-2024 11:25-0400 Diastolic blood pressure 84 mm[Hg] Marilia Podlogar SENIOR COMMUNICATIONS ENGINEER.VP CUSTOMER SERVICE Work Phone: [facility] 02-14-2024 11:25-0400 Heart rate 60 /min Marilia Podlogar SENIOR COMMUNICATIONS ENGINEER.VP CUSTOMER SERVICE Work Phone: [facility] 02-14-2024 11:25-0400 Respiratory rate 18 /min Marilia Podlogar SENIOR COMMUNICATIONS ENGINEER.VP CUSTOMER SERVICE Work Phone: [facility] 02-14-2024 11:25-0400 SaO2% (BldA) [Mass fraction] 95 % Marilia Podlogar SENIOR COMMUNICATIONS ENGINEER.VP CUSTOMER SERVICE Work Phone: [facility] 02-14-2024 11:25-0400 Systolic blood pressure 138 mm[Hg] Marilia Podlogar SENIOR COMMUNICATIONS ENGINEER.VP CUSTOMER SERVICE Work Phone: [facility] 01-29-2024 11:06-0400 Body mass index (BMI) [Ratio] 38.78 kg/m2 Marilia Podlogar SENIOR COMMUNICATIONS ENGINEER.VP CUSTOMER SERVICE Work Phone: [facility] 01-29-2024 11:06-0400 Body temperature 97.59 [degF] Marilia Podlogar SENIOR COMMUNICATIONS ENGINEER.VP CUSTOMER SERVICE Work Phone: [facility] 01-29-2024 11:06-0400 Body weight 129.7 kg Marilia Podlogar SENIOR COMMUNICATIONS ENGINEER.VP CUSTOMER SERVICE Work Phone: [facility] 01-29-2024 11:06-0400 Diastolic blood pressure 92 mm[Hg] Marilia Podlogar SENIOR COMMUNICATIONS ENGINEER.VP CUSTOMER SERVICE Work Phone: [facility] 01-29-2024 11:06-0400 Heart rate 59 /min Marilia Podlogar SENIOR COMMUNICATIONS ENGINEER.VP CUSTOMER SERVICE Work Phone: [facility] 01-29-2024 11:06-0400 Respiratory rate 16 /min Marilia Podlogar SENIOR COMMUNICATIONS ENGINEER.VP CUSTOMER SERVICE Work Phone: [facility] 01-29-2024 11:06-0400 SaO2% (BldA) [Mass fraction] 96 % Marilia Podlogar SENIOR COMMUNICATIONS ENGINEER.VP CUSTOMER SERVICE Work Phone: [facility] 01-29-2024 11:06-0400 Systolic blood pressure 144 mm[Hg] Marilia Podlogar SENIOR COMMUNICATIONS ENGINEER.VP CUSTOMER SERVICE Work Phone: [facility] 01-24-2024 12:02-0400 Body mass index (BMI) [Ratio] 38.9 kg/m2 Marilia Podlogar SENIOR COMMUNICATIONS ENGINEER.VP CUSTOMER SERVICE Work Phone: [facility] 01-24-2024 12:02-0400 Body temperature 98.2 [degF] Marilia Podlogar SENIOR COMMUNICATIONS ENGINEER.VP CUSTOMER SERVICE Work Phone: [facility] 01-24-2024 12:02-0400 Body weight 130.1 kg Marilia Podlogar SENIOR COMMUNICATIONS ENGINEER.VP CUSTOMER SERVICE Work Phone: [facility] 01-24-2024 12:02-0400 Diastolic blood pressure 90 mm[Hg] Marilia Podlogar SENIOR COMMUNICATIONS ENGINEER.VP CUSTOMER SERVICE Work Phone: [facility] 01-24-2024 12:02-0400 Heart rate 81 /min Marilia Podlogar SENIOR COMMUNICATIONS ENGINEER.VP CUSTOMER SERVICE Work Phone: [facility] 01-24-2024 12:02-0400 Respiratory rate 16 /min Marilia Podlogar SENIOR COMMUNICATIONS ENGINEER.VP CUSTOMER SERVICE Work Phone: [facility] 01-24-2024 12:02-0400 SaO2% (BldA) [Mass fraction] 97 % Marilia Podlogar SENIOR COMMUNICATIONS ENGINEER.VP CUSTOMER SERVICE Work Phone: [facility] 01-24-2024 12:02-0400 Systolic blood pressure 134 mm[Hg] Marilia Podlogar SENIOR COMMUNICATIONS ENGINEER.VP CUSTOMER SERVICE Work Phone: [facility] 01-22-2024 11:25-0400 Body mass index (BMI) [Ratio] 39.14 kg/m2 Agnes Diaz MD Work Phone: [facility] 01-22-2024 11:25-0400 Body temperature 97.9 [degF] Agnes Diaz MD Work Phone: [facility] 01-22-2024 11:25-0400 Body weight 130.91 kg Agnes Diaz MD Work Phone: [facility] 01-22-2024 11:25-0400 Diastolic blood pressure 72 mm[Hg] Agnes Diaz MD Work Phone: [facility] 01-22-2024 11:25-0400 Heart rate 76 /min Agnes Diaz MD Work Phone: [facility] 01-22-2024 11:25-0400 Respiratory rate 18 /min Agnes Diaz MD Work Phone: [facility] 01-22-2024 11:25-0400 SaO2% (BldA) [Mass fraction] 98 % Agnes Diaz MD Work Phone: [facility] 01-22-2024 11:25-0400 Systolic blood pressure 124 mm[Hg] Agnes Diaz MD Work Phone: [facility] 01-19-2024 09:40-0400 Body mass index (BMI) [Ratio] 38.27 kg/m2 Marilia Podlogar SENIOR COMMUNICATIONS ENGINEER.VP CUSTOMER SERVICE Work Phone: [facility] 01-19-2024 09:40-0400 Body temperature 98.01 [degF] Marilia Podlogar SENIOR COMMUNICATIONS ENGINEER.VP CUSTOMER SERVICE Work Phone: [facility] 01-19-2024 09:40-0400 Body weight 128 kg Marilia Podlogar SENIOR COMMUNICATIONS ENGINEER.VP CUSTOMER SERVICE Work Phone: [facility] 01-19-2024 09:40-0400 Diastolic blood pressure 94 mm[Hg] Marilia Podlogar SENIOR COMMUNICATIONS ENGINEER.VP CUSTOMER SERVICE Work Phone: [facility] 01-19-2024 09:40-0400 Heart rate 84 /min Marilia Podlogar SENIOR COMMUNICATIONS ENGINEER.VP CUSTOMER SERVICE Work Phone: [facility] 01-19-2024 09:40-0400 Respiratory rate 18 /min Marilia Podlogar SENIOR COMMUNICATIONS ENGINEER.VP CUSTOMER SERVICE Work Phone: [facility] 01-19-2024 09:40-0400 SaO2% (BldA) [Mass fraction] 98 % Marilia Podlogar SENIOR COMMUNICATIONS ENGINEER.VP CUSTOMER SERVICE Work Phone: [facility] 01-19-2024 09:40-0400 Systolic blood pressure 132 mm[Hg] Marilia Podlogar SENIOR COMMUNICATIONS ENGINEER.VP CUSTOMER SERVICE Work Phone: [facility] 01-18-2024 12:03-0400 Body mass index (BMI) [Ratio] 38.93 kg/m2 Joleen Munoz SENIOR COMMUNICATIONS ENGINEER.VP CUSTOMER SERVICE Work Phone: [facility] 01-18-2024 12:03-0400 Body temperature 97.39 [degF] Joleen Munoz SENIOR COMMUNICATIONS ENGINEER.VP CUSTOMER SERVICE Work Phone: [facility] 01-18-2024 12:03-0400 Body weight 130.2 kg Joleen Munoz SENIOR COMMUNICATIONS ENGINEER.VP CUSTOMER SERVICE Work Phone: [facility] 01-18-2024 12:03-0400 Diastolic blood pressure 76 mm[Hg] Joleen Munoz SENIOR COMMUNICATIONS ENGINEER.VP CUSTOMER SERVICE Work Phone: [facility] 01-18-2024 12:03-0400 Heart rate 79 /min Joleen Munoz SENIOR COMMUNICATIONS ENGINEER.VP CUSTOMER SERVICE Work Phone: [facility] 01-18-2024 12:03-0400 Respiratory rate 18 /min Joleen Munoz APRN.VP CUSTOMER SERVICE Work Phone: [facility] 01-18-2024 12:03-0400 SaO2% (BldA) [Mass fraction] 97 % Joleen Munoz APRN.VP CUSTOMER SERVICE Work Phone: [facility] 01-18-2024 12:03-0400 Systolic blood pressure 126 mm[Hg] Joleen Munoz APRN.VP CUSTOMER SERVICE Work Phone: [facility] 01-18-2024 08:39-0400 Diastolic blood pressure 86 mm[Hg] Pradhab Kirupaharan DO Work Phone: [facility] 01-18-2024 08:39-0400 Heart rate 72 /min Pradhab Kirupaharan DO Work Phone: [facility] 01-18-2024 08:39-0400 Respiratory rate 18 /min Pradhab Kirupaharan DO Work Phone: [facility] 01-18-2024 08:39-0400 SaO2% (BldA) [Mass fraction] 97 % Pradhab Kirupaharan DO Work Phone: [facility] 01-18-2024 08:39-0400 Systolic blood pressure 143 mm[Hg] Pradhab Kirupaharan DO Work Phone: [facility] 12-19-2023 14:51-0400 Body mass index (BMI) [Ratio] 38.78 kg/m2 Sidra Pepe MD Work Phone: [facility] 12-19-2023 14:51-0400 Body weight 129.7 kg Sidra Pepe MD Work Phone: [facility] 12-19-2023 14:51-0400 Diastolic blood pressure 82 mm[Hg] Sidra Pepe MD Work Phone: [facility] 12-19-2023 14:51-0400 Heart rate 70 /min iSdra Pepe MD Work Phone: [facility] 12-19-2023 14:51-0400 Systolic blood pressure 145 mm[Hg] Sidra Pepe MD Work Phone: [facility] 12-18-2023 08:00-0400 Diastolic blood pressure 83 mm[Hg] Yogesh Golias PT Work Phone: [facility] 12-18-2023 08:00-0400 Heart rate 55 /min Yogesh Golias PT Work Phone: [facility] 12-18-2023 08:00-0400 Systolic blood pressure 130 mm[Hg] Yogesh Golias PT Work Phone: [facility] 11-09-2023 10:42-0400 Body height 182.9 cm Pradhab Kirupaharan DO Work Phone: [facility] 11-09-2023 10:42-0400 Body mass index (BMI) [Ratio] 38.52 kg/m2 Pradhab Kirupaharan DO Work Phone: [facility] 11-09-2023 10:42-0400 Body weight 128.82 kg Pradhab Kirupaharan DO Work Phone: [facility] 11-09-2023 10:42-0400 Diastolic blood pressure 84 mm[Hg] Pradhab Kirupaharan DO Work Phone: [facility] 11-09-2023 10:42-0400 Heart rate 55 /min Pradhab Kirupaharan DO Work Phone: [facility] 11-09-2023 10:42-0400 SaO2% (BldA) [Mass fraction] 96 % Pradhab Kirupaharan DO Work Phone: [facility] 11-09-2023 10:42-0400 Systolic blood pressure 141 mm[Hg] Pradhab Kirupaharan DO Work Phone: [facility] 10-30-2023 13:14-0400 Body mass index (BMI) [Ratio] 38.52 kg/m2 Agnes Diaz MD Work Phone: [facility] 10-30-2023 13:14-0400 Body weight 128.82 kg Agnes Diaz MD Work Phone: [facility] 10-30-2023 13:14-0400 Diastolic blood pressure 86 mm[Hg] Agnes Diaz MD Work Phone: [facility] 10-30-2023 13:14-0400 Heart rate 72 /min Agnes Diaz MD Work Phone: [facility] 10-30-2023 13:14-0400 Respiratory rate 20 /min Agnes Diaz MD Work Phone: [facility] 10-30-2023 13:14-0400 SaO2% (BldA) [Mass fraction] 95 % Agnes Diaz MD Work Phone: [facility] 10-30-2023 13:14-0400 Systolic blood pressure 138 mm[Hg] Agnes Diaz MD Work Phone: [facility] 10-09-2023 07:16-0400 Body mass index (BMI) [Ratio] 42.39 kg/m2 Sherrell Rouse SENIOR COMMUNICATIONS ENGINEER.VP CUSTOMER SERVICE Work Phone: [facility] 10-09-2023 07:16-0400 Body temperature 96.91 [degF] Sherrell Rouse SENIOR COMMUNICATIONS ENGINEER.VP CUSTOMER SERVICE Work Phone: [facility] 10-09-2023 07:16-0400 Body weight 134 kg Sherrell Rouse SENIOR COMMUNICATIONS ENGINEER.VP CUSTOMER SERVICE Work Phone: [facility] 10-09-2023 07:16-0400 Diastolic blood pressure 80 mm[Hg] Sherrell Rouse SENIOR COMMUNICATIONS ENGINEER.VP CUSTOMER SERVICE Work Phone: [facility] 10-09-2023 07:16-0400 Heart rate 78 /min Sherrell Rouse SENIOR COMMUNICATIONS ENGINEER.VP CUSTOMER SERVICE Work Phone: [facility] 10-09-2023 07:16-0400 Respiratory rate 16 /min Sherrell Rouse SENIOR COMMUNICATIONS ENGINEER.VP CUSTOMER SERVICE Work Phone: [facility] 10-09-2023 07:16-0400 SaO2% (BldA) [Mass fraction] 96 % Sherrell Rouse SENIOR COMMUNICATIONS ENGINEER.VP CUSTOMER SERVICE Work Phone: [facility] 10-09-2023 07:16-0400 Systolic blood pressure 142 mm[Hg] Sherrell Rouse SENIOR COMMUNICATIONS ENGINEER.VP CUSTOMER SERVICE Work Phone: [facility] 08-01-2023 09:27-0400 Body weight 129.37 kg Marilia Podlogar SENIOR COMMUNICATIONS ENGINEER.VP CUSTOMER SERVICE Work Phone: [facility] 08-01-2023 09:27-0400 Diastolic blood pressure 82 mm[Hg] Marilia Podlogar SENIOR COMMUNICATIONS ENGINEER.VP CUSTOMER SERVICE Work Phone: [facility] 08-01-2023 09:27-0400 Heart rate 65 /min Marilia Podlogar SENIOR COMMUNICATIONS ENGINEER.VP CUSTOMER SERVICE Work Phone: [facility] 08-01-2023 09:27-0400 Respiratory rate 18 /min Marilia Podlogar SENIOR COMMUNICATIONS ENGINEER.VP CUSTOMER SERVICE Work Phone: [facility] 08-01-2023 09:27-0400 SaO2% (BldA) [Mass fraction] 94 % Marilia Podlogar SENIOR COMMUNICATIONS ENGINEER.VP CUSTOMER SERVICE Work Phone: [facility] 08-01-2023 09:27-0400 Systolic blood pressure 122 mm[Hg] Marilia Podlogar SENIOR COMMUNICATIONS ENGINEER.VP CUSTOMER SERVICE Work Phone: [facility] 06-16-2023 11:38-0500 Diastolic blood pressure 97 mm[Hg] Marilia Podlogar SENIOR COMMUNICATIONS ENGINEER.VP CUSTOMER SERVICE Work Phone: [facility] 06-16-2023 11:38-0500 Heart rate 66 /min Marilia Podlogar SENIOR COMMUNICATIONS ENGINEER.VP CUSTOMER SERVICE Work Phone: [facility] 06-16-2023 11:38-0500 Systolic blood pressure 161 mm[Hg] Marilia Podlogar SENIOR COMMUNICATIONS ENGINEER.VP CUSTOMER SERVICE Work Phone: [facility] 06-16-2023 10:49-0500 Body weight 133.81 kg Marilia Podlogar SENIOR COMMUNICATIONS ENGINEER.VP CUSTOMER SERVICE Work Phone: [facility] 06-16-2023 10:49-0500 Respiratory rate 18 /min Marilia Podlogar SENIOR COMMUNICATIONS ENGINEER.VP CUSTOMER SERVICE Work Phone: [facility] 06-16-2023 10:49-0500 SaO2% (BldA) [Mass fraction] 97 % Marilia Podlogar SENIOR COMMUNICATIONS ENGINEER.VP CUSTOMER SERVICE Work Phone: [facility] 11-02-2022 08:38-0400 Body weight 132.27 kg Marilia Podlogar SENIOR COMMUNICATIONS ENGINEER.VP CUSTOMER SERVICE Work Phone: [facility] 11-02-2022 08:38-0400 Diastolic blood pressure 86 mm[Hg] Marilia Podlogar SENIOR COMMUNICATIONS ENGINEER.VP CUSTOMER SERVICE Work Phone: [facility] 11-02-2022 08:38-0400 Heart rate 60 /min Marilia Podlogar SENIOR COMMUNICATIONS ENGINEER.VP CUSTOMER SERVICE Work Phone: [facility] 11-02-2022 08:38-0400 Respiratory rate 18 /min Marilia Podlogar SENIOR COMMUNICATIONS ENGINEER.VP CUSTOMER SERVICE Work Phone: [facility] 11-02-2022 08:38-0400 SaO2% (BldA) [Mass fraction] 96 % Marilia Podlogar SENIOR COMMUNICATIONS ENGINEER.VP CUSTOMER SERVICE Work Phone: [facility] 11-02-2022 08:38-0400 Systolic blood pressure 132 mm[Hg] Marilia Podlogar SENIOR COMMUNICATIONS ENGINEER.VP CUSTOMER SERVICE Work Phone: [facility] 05-23-2022 11:01-0500 Body temperature 97.59 [degF] Cole Almanza MD Work Phone: [facility] 05-23-2022 11:01-0500 Body weight 127.46 kg Cole Almanza MD Work Phone: [facility] 05-23-2022 11:01-0500 Diastolic blood pressure 76 mm[Hg] Cole Almanza MD Work Phone: [facility] 05-23-2022 11:01-0500 Heart rate 94 /min Cole Almanza MD Work Phone: [facility] 05-23-2022 11:01-0500 Respiratory rate 18 /min Cole Almanza MD Work Phone: [facility] 05-23-2022 11:01-0500 SaO2% (BldA) [Mass fraction] 97 % Cole Almanza MD Work Phone: [facility] 05-23-2022 11:01-0500 Systolic blood pressure 122 mm[Hg] Cole Almanza MD Work Phone: [facility] 04-13-2022 10:17-0500 Diastolic blood pressure 84 mm[Hg] Agnes Diaz MD Work Phone: [facility] 04-13-2022 10:17-0500 Systolic blood pressure 138 mm[Hg] Agnes Diaz MD Work Phone: [facility] 04-13-2022 09:20-0500 Body height 177.8 cm Agnes Diaz MD Work Phone: [facility] 04-13-2022 09:20-0500 Body weight 128.37 kg Agnes Diaz MD Work Phone: [facility] 04-13-2022 09:20-0500 Heart rate 62 /min Agnes Diaz MD Work Phone: [facility] 04-13-2022 09:20-0500 Respiratory rate 18 /min Agnes Diaz MD Work Phone: [facility] 02-11-2022 08:48-0400 Body temperature 97.11 [degF] Wade Marquez Jr., MD Work Phone: [facility] 02-11-2022 08:48-0400 Body weight 124.74 kg Wade Marquez Jr., MD Work Phone: [facility] 02-11-2022 08:48-0400 Diastolic blood pressure 73 mm[Hg] Wade Marquez Jr., MD Work Phone: [facility] 02-11-2022 08:48-0400 Heart rate 78 /min Wade Marquez Jr., MD Work Phone: [facility] 02-11-2022 08:48-0400 Respiratory rate 18 /min Wade Marquez Jr., MD Work Phone: [facility] 02-11-2022 08:48-0400 SaO2% (BldA) [Mass fraction] 97 % Wade Marquez Jr., MD Work Phone: [facility] 02-11-2022 08:48-0400 Systolic blood pressure 120 mm[Hg] Wade Marquez Jr., MD Work Phone: [facility] 12-08-2021 11:00-0400 Diastolic blood pressure 86 mm[Hg] Yogesh Golias PT Work Phone: [facility] 12-08-2021 11:00-0400 Systolic blood pressure 124 mm[Hg] Yogesh Golias PT Work Phone: [facility] 11-11-2021 09:32-0400 Body temperature 97.39 [degF] Tri Athy PA-C Work Phone: [facility] 11-11-2021 09:32-0400 Body weight 130.64 kg Tri Athy PA-C Work Phone: [facility] 11-11-2021 09:32-0400 Diastolic blood pressure 90 mm[Hg] Tri Athy PA-C Work Phone: [facility] 11-11-2021 09:32-0400 Heart rate 72 /min Tri Athy PA-C Work Phone: [facility] 11-11-2021 09:32-0400 Respiratory rate 20 /min Tri Athy PA-C Work Phone: [facility] 11-11-2021 09:32-0400 SaO2% (BldA) [Mass fraction] 97 % Tri Athy PA-C Work Phone: [facility] 11-11-2021 09:32-0400 Systolic blood pressure 140 mm[Hg] Tri Hylton PA-C Work Phone: [facility] 1945 00:00-0400 >na< Bruna Chowdary Dept. of Dermatology Encounters Encounter Date Encounter Type Care Provider Facility Start: 10-09-2024 End: 10-10-2024 Follow-up encounter Ree Ram LPN [facility] Comment on above: Xray Results Start: 10-08-2024 End: 10-08-2024 Subsequent hospital visit by physician Radha [facility] Work Phone: Radiology Comment on above: Left hand pain [M79. 642] Start: 10-08-2024 End: 10-08-2024 Patient encounter procedure Marilia Orozco SENIOR COMMUNICATIONS ENGINEER.VP CUSTOMER SERVICE Work Phone: [facility] Comment on above: Left hand pain (Prim delia Dx); Left wrist pain Start: 10-08-2024 End: 10-08-2024 ambulatory AGNES DIAZ Facility:[facility] Start: 10-07-2024 ambulatory Alex Sher [place] [place]: 10-07-2024 Non-patient / Non-visit Alex Calix nd DO -[facility] Start: 10-07-2024 End: 10-07-2024 Admission to same day surgery center Alex Sher DO -Endoscopy Work Phone: Start: 10-07-2024 End: 10-07-[address] Salvador Diaz MD Work Phone: [facility] Work Phone: Start: 09-25-2024 End: 09-25-2024 Office outpatient visit 25 minutes Victor Manuel Savage DO Work Phone: Pulmonology Comment on above: History of pulmonary embolism (Primary Dx); BMI 38.0-38.9,adult; History of venous thromboembolism; Stage 3a chronic kidney disease (HCC); Venous insufficiency (chronic) (peripheral) Start: 09-25-2024 End: 09-25-2024 ambulatory AGNES DIAZ Facility:[facility] Start: 09-17-2024 End: 09-17-[address] Isaias Velez MD -[facility] Start: 09-17-2024 End: 09-17-[address] Salvador Diaz MD Work Phone: [facility] Work Phone: Start: 08-31-2024 End: 08-31-2024 Emergency department patient visit Dr. Isaias Trivedi MD -Emergency Department Work Phone: Start: 08-31-2024 End: 08-31-2024 ambulatory COLE ALMANZA Facility:[facility] Start: 08-31-2024 End: 08-31-2024 Patient encounter procedure Cole Almanza MD Work Phone: [facility] Comment on above: Abdominal pain, unsp ecified abdominal location (Primary Dx) Start: 08-27-2024 End: 08-27-2024 Telephone encounter Agnes Diaz MD Work Phone: [facility] Comment on above: medication form (Ant icoagulant authorization form) Start: 08-16-2024 End: 08-16-2024 Follow-up encounter Marilia Orozco APRN.CNP Work Phone: [facility] Comment on above: Results Start: 08-15-2024 End: 08-15-2024 ambulatory AGNES DIAZ Facility:[facility] Start: 08-13-2024 End: 08-13-2024 Patient encounter procedure Marilia Orozco APRN.CNP Work Phone: [facility] Comment on above: Essential hypertensi on, benign (Primary Dx); Pulmonary HTN (HCC); MARTIN (obstructive sleep apnea); Prediabetes; Hyperlipidemia LDL goal <100; Obesity, Class III, 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 Start: 08-07-2024 End: 08-07-2024 Patient encounter procedure Morelia Hugginsaguila [facility] Comment on above: Population Health Na vigation Outreach ([facility]/Workbench/ACO ) Start: 07-26-2024 End: 07-26-2024 Refill Agnes Diaz MD Work Phone: [facility] Comment on above: Refill Request Start: 07-23-2024 End: 07-23-2024 Patient encounter procedure Alex Sher DO [facility] Work Phone: Start: 07-23-2024 End: 07-23-2024 ambulatory Salvador Diaz Facility:[facility] Start: 07-04-2024 ambulatory Alex Sher Facility :[facility] Start: 07-04-2024 End: 07-04-2024 Admission to same day surgery center Alex Sher DO -Endoscopy Work Phone: Start: 07-04-2024 End: 07-04-[address] Salvador Diaz MD Work Phone: [facility] Work Phone: Start: 07-04-2024 Non-patient / Non-visit [facility] Calix nd, [facility] Start: 06-24-2024 End: 06-28-2024 Telephone encounter Victor Manuel Savage DO Work Phone: Pulmonology [facility] Comment on above: Appointment Start: 05-21-2024 End: 05-22-2024 Refill Agnes Diaz MD Work Phone: [facility] Comment on above: Refill Request Start: 04-16-2024 End: 04-16-2024 Patient encounter procedure Alex Sher -[facility] Work Phone: Start: 04-16-2024 End: 04-16-2024 ambulatory Alex Sher [place] Start: 04-12-2024 End: 04-13-2024 Refill Agnes Diaz MD Work Phone: [facility] Comment on above: Refill Request Start: 04-08-2024 End: 04-08-2024 Patient Outreach Mitchel Walters RN Work Phone: [employer] Comment on above: Weekly phone contact (Recurring) for Transitional Care Management Start: 04-01-2024 End: 04-01-2024 Patient encounter procedure Marilia Ernesto SENIOR COMMUNICATIONS ENGINEER.VP CUSTOMER SERVICE Work Phone: [facility] Comment on above: Hospital discharge f ollow-up (Primary Dx); Calculus of bile duct without cholecystitis with obstruction; Fall in home, subsequent encounter; Traumatic ecchymosis of abdominal wall, subsequent encounter Start: 04-01-2024 End: 04-01-2024 ambulatory AGNES DIAZ Facility:[facility] Start: 03-29-2024 End: 03-29-2024 Patient Outreach Mitchel Walters RN Work Phone: [employer] Comment on above: Transition Of Care ( TCM / [facility] [place] [facility] 03/28/24) Initial phone contact for Transitional Care Management Start: 03-28-2024 Non-patient / Non-visit Dr. Altagracia Lo MD -[facility] Work Phone: Start: 03-28-2024 Non-patient / Non-visit Dr. Deena Avalos MD -[facility] Start: 03-27-2024 ambulatory Alex Sher [place] Start: 03-27-2024 Non-patient / Non-visit Dr. Altagracia Lo MD -[facility] Work Phone: Start: 03-26-2024 Non-patient / Non-visit Alex Calix nd DO -[facility] Start: 03-26-2024 ambulatory Andrea Serrano Fac ility:[facility] Start: 03-26-2024 End: 03-28-2024 Evaluation and management of inpatient Dr. Altagracia Lo MD -Progressive Care Unit Work Phone: Start: 03-18-2024 End: 03-18-2024 Refill Agnes Diaz MD Work Phone: [facility] Comment on above: Refill Request Start: 02-23-2024 End: 02-23-2024 ambulatory AGNES DIAZ Facility:[facility] Start: 02-23-2024 End: 02-23-2024 Subsequent hospital visit by physician Xr [facility] Work Phone: Radiology Start: 02-21-2024 End: 02-21-2024 Refill Victor Manuel Savage DO Work Phone: Pulmonology [facility] Comment on above: Refill Request Start: 02-14-2024 End: 02-14-2024 Patient encounter procedure Marilia Orozco APRN.VP CUSTOMER SERVICE Work Phone: [facility] Comment on above: Upper back pain (Jory flaquito Dx); Immunization due; Right leg swelling Start: 02-14-2024 End: 02-14-2024 ambulatory AGNES DIAZ Facility:[facility] Start: 02-08-2024 End: 02-08-2024 Telephone encounter Marilia Orozco APRN.VP CUSTOMER SERVICE Work Phone: [facility] Comment on above: Hillary cellulitis Start: 01-29-2024 End: 01-29-2024 Patient encounter procedure Marilia Orozco APRN.VP CUSTOMER SERVICE Work Phone: [facility] Comment on above: Cellulitis of right leg (Primary Dx); Tear of medial meniscus of right knee, current, unspecified tear type, initial encounter; Right leg swelling Start: 01-29-2024 End: 01-29-2024 ambulatory AGNES DIAZ Facility:[facility] Start: 01-26-2024 End: 01-26-2024 Emergency department patient visit Leo Jade Facility:[facility] Start: 01-26-2024 End: 01-26-2024 ambulatory AGNES DIAZ Facility:[facility] Start: 01-26-2024 End: 01-26-2024 Subsequent hospital visit by physician [facility] (I-Stat/3t) [facility] Comment on above: Acute pain of right knee [M25.561] Start: 01-24-2024 End: 01-24-2024 Patient encounter procedure Marilia Orozco APRN.VP CUSTOMER SERVICE Work Phone: [facility] Comment on above: Pain and swelling of right lower leg (Primary Dx); Acute pain of right knee Start: 01-24-2024 End: 01-24-2024 ambulatory AGNES DIAZ Facility:[facility] Start: 01-22-2024 End: 01-22-2024 Telephone encounter Agnes Diaz MD Work Phone: [facility] Comment on above: Results Start: 01-22-2024 End: 01-22-2024 Patient encounter procedure Agnes Diaz MD Work Phone: [facility] Comment on above: Pain and swelling of right lower leg (Primary Dx); Cellulitis of skin Start: 01-22-2024 End: 01-22-2024 ambulatory AGNES DIAZ Facility:[facility] Start: 01-19-2024 ambulatory AGNES DIAZ F acility:[facility] Start: 01-19-2024 End: 01-19-2024 Subsequent hospital visit by physician [facility] 2 Work Phone: Radiology Comment on above: Pain and swelling of right lower leg [M79.661, M79.89] Start: 01-19-2024 End: 01-19-2024 Patient encounter procedure Marilia Orozco APRN.VP CUSTOMER SERVICE Work Phone: [facility] Comment on above: Pain and swelling of right lower leg (Primary Dx) Start: 01-19-2024 End: 01-19-2024 ambulatory AGNES DIAZ Facility:[facility] Start: 01-18-2024 End: 01-18-2024 ambulatory AGNES DIAZ Facility:[facility] Start: 01-18-2024 End: 01-18-2024 Subsequent hospital visit by physician Radha [facility] Work Phone: Radiology Comment on above: Acute pain of right knee [M25.561] Start: 01-18-2024 End: 01-18-2024 Patient encounter procedure Joleen Munoz APRN.VP CUSTOMER SERVICE Work Phone: [facility] Comment on above: Pain (Primary Dx) Start: 01-18-2024 End: 01-18-2024 Office outpatient visit 25 minutes Victor Manuel Savage DO Work Phone: Pulmonology Comment on above: Acute pain of right knee (Primary Dx); History of pulmonary embolism; BMI 38.0-38.9,adult; History of venous thromboembolism; Stage 3a chronic kidney disease (HCC); MARTIN (obstructive sleep apnea) Start: 01-18-2024 End: 01-18-2024 ambulatory VICTOR MANUEL SAVAGE Facility:[facility] Start: 01-17-2024 End: 01-17-2024 ambulatory Yogesh Forman PT Work Phone: [facility] Comment on above: Unsteady gait (Prima ry Dx) Start: 01-16-2024 End: 01-16-2024 ambulatory AGNES DIAZ Facility:[facility] Start: 01-16-2024 End: 01-16-2024 Patient encounter procedure Echocardiogram Peña Work Phone: Cardiology Comment on above: Other secondary pulm onary hypertension (HCC); History of pulmonary embolism Start: 01-15-2024 End: 01-15-2024 Office outpatient visit 15 minutes Bruna Chowdary APRN-VP CUSTOMER SERVICE Work Phone: [facility] Comment on above: Xerosis cutis (Prima ry Dx); Xerosis cutis; Multiple benign nevi; Lentigo; Seborrheic keratosis Start: 01-15-2024 End: 01-15-2024 [facility] Start: 01-10-2024 End: 01-19-2024 Telephone encounter Agnes Diaz MD Work Phone: [facility] Comment on above: Disc Request Start: 01-10-2024 End: 01-10-2024 ambulatory Yogesh Golias PT Work Phone: [facility] Comment on above: Unsteady gait (Prima ry Dx) Start: 01-08-2024 End: 01-08-2024 ambulatory Tabby Gibbs PURCHASING MANAGER/SALES Work Phone: [facility] Comment on above: Unsteady gait (Prima ry Dx) Start: 01-06-2024 End: 01-08-2024 Refill Agnes Diaz MD Work Phone: [facility] Comment on above: Refill Request Start: 01-04-2024 End: 01-04-2024 ambulatory Yogesh Golias PT Work Phone: [facility] Comment on above: Unsteady gait (Prima ry Dx) Start: 12-19-2023 End: 12-19-2023 ambulatory AGNES DIAZ Facility:[facility] Start: 12-19-2023 End: 12-19-2023 Patient encounter procedure Sidra Pepe MD Work Phone: Vascular Medicine Comment on above: History of venous th romboembolism (Primary Dx); 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; BMI 38.0-38.9,adult; Other secondary pulmonary hypertension (HCC); Lower extremity edema; Stage 3a chronic kidney disease (HCC) Start: 12-18-2023 End: 12-18-2023 ambulatory Yogesh Golias PT Work Phone: [facility] Comment on above: Unsteady [...] pulmonary embolism Start: 11-09-2023 End: 11-09-2023 ambulatory [facility] Facility:[facility] Start: 11-06-2023 ambulatory Leonila Triana RN Work Phone: [employer] Management Start: 11-06-2023 Telephone encounter Salvador Diaz MD Work Phone: [facility] Comment on above: Forms (FMLA paperwor k for patient's spouse) Start: 11-06-2023 Telephone follow-up Leonila holguin RN Work Phone: [employer] Comment on above: Transition Of Care ( tcm d/c follow up ) Weekly phone contact (Recurring) for Transitional Care Management Start: 11-01-2023 Telephone encounter Salvador Diaz MD Work Phone: [facility] Comment on above: Patient Update Start: 10-31-2023 Telephone encounter Salvador Diaz MD Work Phone: [facility] Comment on above: [facility]- verbal orders Start: 10-30-2023 End: 10-30-2023 ambulatory Leonila Triana RN Work Phone: [employer] Management Start: 10-30-2023 End: 10-30-2023 Patient encounter [...] Transitional Care Management Start: 10-26-2023 Telephone encounter Salvador Diaz MD Work Phone: [facility] Comment on above: Patient Update Start: 10-23-2023 Evaluation and management of inpatient DIVYAADELIA RODRIGUEZ Facility:[facility] Start: 10-22-2023 End: 10-23-2023 Emergency department patient visit Ana Fragoso Facility:[facility] Start: 10-09-2023 End: 10-09-2023 Patient encounter procedure Sherrell Rouse SENIOR COMMUNICATIONS ENGINEER.VP CUSTOMER SERVICE Work Phone: [facility] Comment on above: Rash (Primary Dx) Start: 09-27-2023 Refill Agnes Diaz MD Work Phone: [facility] Comment on above: Refill Request Start: 09-04-2023 Refill Agnes Diaz MD Work Phone: [facility] Comment on above: Refill Request Start: 08-01-2023 End: 08-01-2023 Patient encounter procedure Marilia Orozco APRN.VP CUSTOMER SERVICE Work Phone: [facility] Comment on above: Essential hypertensi on, benign (Primary Dx); Prediabetes Start: 07-07-2023 Telephone encounter Salvador Diaz MD Work Phone: [facility] Comment on above: Medication Request Start: 07-01-2023 End: 07-01-2023 ambulatory [facility] Work Phone: Start: 07-01-2023 End: 07-01-2023 Patient encounter procedure [facility] Work Phone: Start: 06-22-2023 Telephone encounter Salvador Diaz MD Work Phone: [facility] Comment on above: Orders Start: 06-16-2023 End: 06-16-2023 Patient encounter procedure Marilia Orozco SENIOR COMMUNICATIONS ENGINEER.VP CUSTOMER SERVICE Work Phone: [facility] Comment on above: Essential hypertensi on, benign (Primary Dx) Start: 05-15-2023 End: 05-15-2023 Subsequent hospital visit by physician Radha [facility] Work Phone: Radiology Comment on above: 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, 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, G89.29] Start: 03-20-2023 Refill Amanda rodriges APRN.VP CUSTOMER SERVICE Work Phone: [facility] Comment on above: Refill Request Start: 03-13-2023 ambulatory [facility] Trevino [facility] [place] Comment on above: Population Health [facility] ([facility] GAPS) Start: 03-07-2023 Refill Agnes Diaz MD Work Phone: [facility] Comment on above: Refill Request Start: 02-07-2023 [...] 12-29-2022 ambulatory Yogesh Golias PT Work Phone: [facility] Comment on above: 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) Start: 12-27-2022 End: 12-27-2022 ambulatory Yogesh Golias PT Work Phone: [facility] Comment on above: 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) Start: 12-22-2022 End: 12-22-2022 ambulatory Yogesh Golias PT Work Phone: [facility] Comment on above: 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) Start: 12-16-2022 End: 12-16-2022 ambulatory Yogesh Golias PT Work Phone: [facility] Comment on above: 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) Start: 12-08-2022 End: 12-08-2022 Refill Agnes Diaz MD Work Phone: [facility] Comment on above: 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) Start: 12-06-2022 End: 12-06-2022 ambulatory Yogesh Golias PT Work Phone: [facility] Comment on above: 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) Start: 12-01-2022 End: 12-01-2022 ambulatory Yogesh Golias PT Work Phone: [facility] Comment on above: 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) Start: 11-29-2022 End: 11-29-2022 ambulatory Sherrell O'Himanshu PT [facility] Comment on above: 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) Start: 11-09-2022 Telephone encounter Marilia francis APRN.VP CUSTOMER SERVICE Work Phone: [facility] Comment on above: Results Start: 11-07-2022 End: 11-07-2022 Patient encounter procedure Echocardiogram Wstr Work Phone: Cardiology Comment on above: Essential hypertensi on, benign; Stage 3b chronic kidney disease (HCC); Bilateral leg edema; ASHD (arteriosclerotic heart disease) Start: 11-03-2022 Telephone encounter Salvador Diaz MD Work Phone: [facility] Comment on above: Results Start: 11-02-2022 End: 11-02-2022 Patient encounter procedure Marilia Orozco APRN.VP CUSTOMER SERVICE [facility] Comment on above: Essential hypertensi on, benign (Primary Dx); Hyperlipidemia LDL goal <100; Prediabetes; Acquired hypothyroidism; Stage 3b chronic kidney disease (HCC); Chronic bilateral low back pain with bilateral sciatica; Obesity, Class III, 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); Venous insufficiency (chronic) (peripheral); Bilateral leg edema; MARTIN (obstructive sleep apnea); ASHD (arteriosclerotic heart disease) Start: 06-10-2022 Telephone encounter Scott Pal MD Work Phone: [facility] Comment on above: Medication Request Start: 05-23-2022 End: 05-23-2022 Patient encounter procedure Cole Almanza MD Work Phone: [facility] Comment on above: URI, acute (Primary Dx) Start: 05-11-2022 Refill Agnes Diaz MD Work Phone: [facility] Comment on above: Refill Request; Refi ll Request Start: 04-13-2022 End: 04-13-2022 Patient encounter procedure Agnes Diaz MD Work Phone: [facility] Comment on above: Medicare annual well ness visit, subsequent (Primary Dx); Essential hypertension, benign; Stage 3b chronic kidney disease (HCC); Obesity, Class III, 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); Acquired hypothyroidism; Advance directive discussed with patient; MARTIN (obstructive sleep apnea) Start: 04-11-2022 ambulatory Anusha Trevino [facility] [place] Comment on above: Population Health Na vigation Outreach ([facility] PCSA) Start: 02-11-2022 End: 02-11-2022 Patient encounter procedure Wade Marquez MD Work Phone: Neurology Comment on above: MARTIN on CPAP (Primary Dx) Start: 02-03-2022 End: 02-03-2022 ambulatory Yogesh Forman PT Work Phone: [facility] Comment on above: 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); Personal history of fall; Age-related physical debility Start: 01-31-2022 End: 01-31-2022 ambulatory Tabby Gibbs PURCHASING MANAGER/SALES Work Phone: [facility] Comment on above: 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); Personal history of fall; Age-related physical debility Start: 01-24-2022 End: 01-24-2022 ambulatory Yogesh GolSingWho PT Work Phone: [facility] Comment on above: 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); Personal history of fall; Age-related physical debility Start: 01-20-2022 End: 01-20-2022 ambulatory Tabby Gibbs PURCHASING MANAGER/SALES Work Phone: [facility] Comment on above: 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); Personal history of fall; Age-related physical debility Start: 01-17-2022 End: 01-17-2022 ambulatory Tabby Gibbs PURCHASING MANAGER/SALES Work Phone: [facility] Comment on above: 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); Personal history of fall; Age-related physical debility Start: 01-12-2022 End: 01-12-2022 ambulatory Yogesh Golias PT Work Phone: [facility] Comment on above: 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); Personal history of fall; Age-related physical debility Start: 01-10-2022 End: 01-10-2022 ambulatory Yogesh Golias PT Work Phone: [facility] Comment on above: 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); Personal history of fall; Age-related physical debility Start: 01-04-2022 End: 01-04-2022 ambulatory Tabby Gibbs PURCHASING MANAGER/SALES Work Phone: [facility] Comment on above: 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); Personal history of fall; Age-related physical debility Start: 12-31-2021 Office outpatient vi sit 15 minutes Bruna Chowdary Dept. of Dermatology Start: 12-29-2021 End: 12-29-2021 ambulatory Xiao Humphrey PURCHASING MANAGER/SALES Work Phone: [facility] Comment on above: 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); Personal history of fall; Age-related physical debility Start: 12-27-2021 End: 12-27-2021 ambulatory Xiao Humphrey PURCHASING MANAGER/SALES Work Phone: [facility] Comment on above: 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); Personal history of fall; Age-related physical debility Start: 12-20-2021 End: 12-20-2021 ambulatory Yogesh Golias PT Work Phone: [facility] Comment on above: 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); Personal history of fall; Age-related physical debility Start: 12-17-2021 Refill Agnes Diaz MD Work Phone: [facility] Comment on above: Refill Request Start: 12-08-2021 End: 12-08-2021 ambulatory Yogesh Golias PT Work Phone: [facility] Comment on above: Chronic bilateral lo w back pain with bilateral sciatica; At high risk for falls; Age-related physical debility; Personal history of fall Start: 12-02-2021 Telephone encounter Salvador Diaz MD Work Phone: [facility] Comment on above: Results Start: 11-11-2021 End: 11-11-2021 Patient encounter procedure Tri Hylton PA-C Work Phone: [facility] Comment on above: Acute otitis externa of right ear, unspecified type (Primary Dx) Start: 10-19-2021 End: 10-19-2021 Nursing evaluation of patient and report Mi Nurse Work Phone: [facility] Comment on above: Need for vaccination (Primary Dx) Start: 10-19-2021 Telephone encounter Salvador Diaz MD Work Phone: [facility] Comment on above: Orders Start: 10-05-2021 Refill Agnes Diaz MD Work Phone: [facility] Comment on above: Patient Question; Re fill Request Start: 07-14-2021 Telephone encounter Marilia francis VP CUSTOMER SERVICE Work Phone: [facility] Comment on above: Orders Start: 01-01-2021 Office outpatient vi sit 15 minutes Bruna Bort Dept. of Dermatology Start: 01-03-2020 Office outpatient vi sit 15 minutes Bruna Bort Dept. of Dermatology Start: 05-13-2019 Preprocedural examination done Agnes Diaz MD Work Phone: [facility] Work Phone: Start: 01-04-2019 Office outpatient vi [...] Radex hand minimum 3 views Marilia rascon SENIOR COMMUNICATIONS ENGINEER.VP CUSTOMER SERVICE Work Phone: Start: 10-07-[address] Salvador Diaz MD Work Phone: Start: 10-07-[address] Salvador Diaz MD Work Phone: Start: 09-17-2024 X-ray of lumbosacral spine Dr. Emler Diaz MD Work Phone: Start: 08-31-2024 Urnls [...] VACCINE AGE 12+ YR (COMIRNATY) Marilia Podlogar SENIOR COMMUNICATIONS ENGINEER.VP CUSTOMER SERVICE Work Phone: Start: 01-26-2024 Mri any jt lower extrem w/o contrast matrl Marilia Podlogar SENIOR COMMUNICATIONS ENGINEER.VP CUSTOMER SERVICE Work Phone: Start: 01-19-2024 Dup-scan xtr veins unilateral/limited study Mairlia Podlogar SENIOR COMMUNICATIONS ENGINEER.VP CUSTOMER SERVICE Work Phone: Start: 01-16-2024 Echo tthrc r-t 2d w/wom-mode compl spec&colr d Avril Ankit DO Work Phone: Start: 11-22-2023 Pulmonary ventilation & perfusion imaging Avril Pham DO Work Phone: Start: 07-01-2023 MRI of lumbar spine Start: 05-15-2023 Radex spine lumbosacral 2/3 views Marilia Podlogar SENIOR COMMUNICATIONS ENGINEER.VP CUSTOMER SERVICE Work Phone: Start: 01-05-2023 Tangential biopsy skin single lesion Bruna Chowdary Start: 11-07-2022 Echo tthrc r-t 2d w/wom-mode compl spec&colr d Marilia Podlogar SENIOR COMMUNICATIONS ENGINEER.VP CUSTOMER SERVICE Work Phone: Start: 11-07-2022 LVEF TRANSTHORACIC ECHO Marilia Podlogar SENIOR COMMUNICATIONS ENGINEER.VP CUSTOMER SERVICE Work Phone: Start: 12-01-2021 Adult depression screening [...] DTaP/Tdap/Td Vaccines (3 - Td or Tdap) [facility] Start: 07-31-2029 Urine microalbumin profile [facility] Start: 08-16-2027 Diabetes Screening Diabetes Screening [facility] Start: 10-26-2026 Diabetes Screening Diabetes Screening [facility] Start: 10-25-2026 Diabetes Screening Diabetes Screening [facility] Start: 07-31-2026 Diabetes Screening Diabetes Screening [facility] Start: 05-15-2026 Diabetes Screening Diabetes Screening [facility] Start: 11-02-2025 DIABETES SCREEN DIABETES SCREEN [facility] Start: 11-02-2025 Diabetes Screening Diabetes Screening [facility] Start: 10-08-2025 Annual PCP Team Chronic Disease Visit Annual PCP Team Chronic Disease Visit [facility] Start: 10-08-2025 BP Controlled (<130/80) BP Controlled (<130/80) [facility] Start: 08-15-2025 Creatinine measurement Serum Creatinine [facility] Start: 08-15-2025 Hepatitis B surface antibody level LDL Cholesterol [facility] Start: 08-13-2025 Annual PCP Team Chronic Disease Visit Annual PCP Team Chronic Disease Visit [facility] Start: 04-13-2025 DIABETES SCREEN DIABETES SCREEN [facility] Start: 04-01-2025 Annual PCP Team Chronic Disease Visit Annual PCP Team Chronic Disease Visit [facility] Start: 02-13-2025 Annual PCP Team Chronic Disease Visit Annual PCP Team Chronic Disease Visit [facility] Start: 02-12-2025 End: 02-12-2025 Patient encounter procedure 02/12/2025 3:00 PM EDT Office Visit [facility] [address] [place] [address] Marilia Orozco APRN.VP CUSTOMER SERVICE [address] [place] [address] 6 month follow up [facility] Comment on above: 6 month follow up Start: 01-28-2025 Annual PCP Team Chronic Disease Visit Annual PCP Team Chronic Disease Visit [facility] Start: 01-24-2025 End: 01-24-2025 Patient encounter procedure 01/24/2025 11:00 AM EDT Office Visit [address] [place] [id number] Bruna Chowdary APRN-VP CUSTOMER SERVICE [address] [facility] [address] [place] [address] [facility] Start: 01-23-2025 Annual PCP Team Chronic Disease Visit Annual PCP Team Chronic Disease Visit [facility] Start: 01-21-2025 Annual PCP Team Chronic Disease Visit Annual PCP Team Chronic Disease Visit [facility] Start: 01-21-2025 BP Controlled (<130/80) BP Controlled (<130/80) [facility] Start: 01-18-2025 Annual PCP Team Chronic Disease Visit Annual PCP Team Chronic Disease Visit [facility] Start: 01-18-2025 Complete blood count Hemoglobin/Hematocrit [facility] Start: 01-17-2025 BP Controlled (<130/80) BP Controlled (<130/80) [facility] Start: 12-01-2024 DIABETES SCREEN DIABETES SCREEN [facility] Start: 10-29-2024 Annual PCP Team Chronic Disease Visit Annual PCP Team Chronic Disease Visit [facility] Start: 10-26-2024 Creatinine measurement Serum Creatinine [facility] Start: 10-25-2024 Complete blood count Hemoglobin/Hematocrit [facility] Start: 10-25-2024 Creatinine measurement Serum Creatinine [facility] Start: 10-22-2024 Diabetes mellitus screening Diabetes Screening [facility] Start: 10-22-2024 Hemoglobin A1c measurement Diabetes: Hemoglobin A1C [facility] Start: 10-22-2024 End: 10-22-2024 ambulatory Pulmonology [facility] Comment on above: 9 MONTH F/U Start: 10-21-2024 End: 10-21-2024 ambulatory 10/21/2024 1:00 PM [facility]T [facility] [facility] Pulmonary Medicine [address] [place] [address] [place] [address] [place] [address] 9 MONTH F/U Pulmonary Medicine Comment on above: 9 MONTH F/U Start: 10-07-2024 Endoscopic retrograde cholangiopancreatography ERCP Biliary/Pancreas [facility] Start: 10-07-2024 RF Guidance for endoscopy of Biliary ducts and Pancreatic duct-- W contrast retrograde [facility] Start: 10-07-2024 Patient discharge [facility] Start: 09-27-2024 End: 12-27-2024 Thyrotropin [Units/volume] in Serum or Plasma THYROID STIMULATING HORMONE Lab Routine Acquired hypothyroidism Expected: 09/27/2024, Expires: 12/27/2024 [facility] Work Phone: Comment on above: Expected: 09/27/2024, Expires: Start: 09-27-2024 End: 09-27-2024 ambulatory 09/27/2024 9:00 AM EDT Results Only [facility] [address] [place] [address] [facility] Start: 09-25-2024 End: 09-25-2024 ambulatory 09/25/2024 8:30 AM EDT [facility] Pulmon[facility] [address] [place] [address] [place] [address] [place] [address] 9 MONTH F/U R/S from 10-21 Pulmonology Comment on above: 9 MONTH F/U R/S from 10-21 Start: 09-17-2024 X-ray of lumbosacral spine L/S Spine Min 4 Views [facility] Start: 09-17-2024 XR Spine Lumbar and Sacrum GE 4 Views [facility] Start: 08-31-2024 [facility] Start: 08-14-2024 Covid-19 Vaccine ( season) Covid-19 Vaccine ( season) [facility] Start: 08-13-2024 End: 11-12-2024 Comprehensive metabolic 2000 panel - Serum or Plasma COMPREHENSIVE METABOLIC PANEL Lab Routine Essential hypertension, benign Hyperlipidemia LDL goal <100 Stage 3b chronic kidney disease (HCC) Expected: 08/13/2024, Expires: 11/12/2024 [facility] Comment on above: Expected: 08/13/2024, Expires: Start: 08-13-2024 End: 11-12-2024 Hemoglobin A1c in Blood HEMOGLOBIN A1C Lab Routine Prediabetes Expected: 08/13/2024, Expires: 11/12/2024 [facility] Comment on above: Expected: 08/13/2024, Expires: Start: 08-13-2024 End: 11-12-2024 Lipid 1996 panel - Serum or Plasma LIPID PANEL, FASTING Lab Routine Hyperlipidemia LDL goal <100 Expected: 08/13/2024, Expires: 11/12/2024 [facility] Work Phone: Comment on above: Expected: 08/13/2024, Expires: Start: 08-13-2024 End: 11-12-2024 Thyrotropin [Units/volume] in Serum or Plasma THYROID STIMULATING HORMONE Lab Routine Acquired hypothyroidism Expected: 08/13/2024, Expires: 11/12/2024 [facility] Comment on above: Expected: 08/13/2024, Expires: Start: 08-13-2024 End: 08-13-2024 Patient encounter procedure 08/13/2024 11:40 AM EDT Office Visit [facility] [address] [place] [address] PodlogarMarilia APRN.VP CUSTOMER SERVICE [address] [place] [address] annual wellness [facility] Comment on above: annual wellness Start: 08-02-2024 End: 08-02-2024 Patient encounter procedure 08/02/2024 12:20 PM EDT Office Visit [facility] [address] [place] [address] Agnes Diaz MD [address] [place] [address] Medicare wellness [facility] Comment on above: Medicare wellness Start: 07-31-2024 Annual PCP Team Chronic Disease Visit Annual PCP Team Chronic Disease Visit [facility] Start: 07-12-2024 DIABETES SCREEN DIABETES SCREEN [facility] Start: 07-04-2024 Egd transoral biopsy single/multiple EGD BIOPSY SINGLE/MULTIPLE [facility] Start: 07-04-2024 Ercp remove calculi/debris biliary/pancreas duct ERCP REMOVE DUCT CALCULI [facility] Start: 07-04-2024 Ercp remove foreign body/stent biliary/panc duct ERCP REMOVE FORGN BODY DUCT [facility] Start: 07-04-2024 Ercp w/sphincterotomy/papillotomy ENDO CHOLANGIOPANCREATOGRAPH [facility] Start: 07-04-2024 Patient discharge [facility] Start: 07-02-2024 End: 07-02-2024 Patient encounter procedure 07/02/2024 12:30 PM EST Office Visit Vascular Medicine [address] [id number] Sidra Gómez MD [address] [place], [place] [id number] Return in about 6 months (around 06/20/2024). Vascular Medicine Comment on above: Return in about 6 months (around 06/20/19). Start: 06-16-2024 Annual PCP Team Chronic Disease Visit Annual PCP Team Chronic Disease Visit [facility] Start: 05-15-2024 Creatinine measurement Serum Creatinine [facility] Start: 05-01-2024 Advance Directive Discussion Advance Directive Discussion [facility] Start: 04-01-2024 End: 04-01-2024 Patient encounter procedure 04/01/2024 12:00 PM EST Office Visit [facility] [address] [place] [address] PodlogarMarilia APRN.VP CUSTOMER SERVICE [address] [place] [address] [facility] follow up 03/26-03/28 [facility] Comment on above: [facility] follow up 03/26-03/28 Start: 03-28-2024 Patient discharge [facility] Start: 03-27-2024 Application of intermittent pneumatic compression device [facility] Start: 03-27-2024 Referral to general surgeon [facility] Start: 03-26-2024 Ambulation without limitation [facility] Start: 03-26-2024 Assessment of risk of venous thromboembolism [facility] Start: 03-26-2024 Incentive spirometry [facility] Start: 03-26-2024 Insertion of catheter into peripheral vein [facility] Start: 03-26-2024 Oxygen therapy [facility] Start: 03-26-2024 Providing care according to standard [facility] Start: 03-26-2024 [facility] Start: 03-26-2024 Referral to gastroenterology service [facility] Start: 03-26-2024 Following clinical pathway protocol [facility] Start: 03-26-2024 Admission procedure [facility] Start: 03-12-2024 End: 03-12-2024 Patient encounter procedure 03/12/2024 8:00 AM EST Office Visit Vascular Medicine [address] [id number] Sidra Gómez MD [address] [place], [place] [id number] 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] Vascular Medicine Comment on above: Other secondary pulmonary hypertension ( HCC) [I27.29] Start: 02-28-2024 End: 02-28-2024 Patient encounter procedure 02/28/2024 10:00 AM EDT Appointment Radiology [address] [place] [address] Acute pain of right knee [M25.561] Radiology Comment on above: Acute pain of right knee [M25.561] Start: 02-14-2024 End: 02-14-2024 Patient encounter procedure 02/14/2024 11:40 AM EDT Office Visit [facility] [address] [place] [address] Marilia Orozco APRN.VP CUSTOMER SERVICE [address] [place] [address] Hillary leg cellulitis. Requesting flu & covid vaccine [facility] Comment on above: Hillary leg cellulitis. Requesting flu & co vid vaccine Start: 02-09-2024 End: 02-09-2024 ambulatory 02/09/2024 2:00 PM EDT OT/PT/Speech Visit [facility] [address] [place] [address] Yogesh Forman, PT [address] [place] [address] R26.81 (ICD-10-CM) - Unsteady gait when walking [facility] Comment on above: R26.81 (ICD-10-CM) - Unsteady gait when walking Start: 02-02-2024 End: 02-02-2024 ambulatory 02/02/2024 1:15 PM EDT OT/PT/Speech Visit [facility] [address] [place] [address] Tabby Gibbs, PURCHASING MANAGER/SALES [address] [place] [address] R26.81 (ICD-10-CM) - Unsteady gait when walking [facility] Comment on above: R26.81 (ICD-10-CM) - Unsteady gait when walking Start: 02-01-2024 End: 05-02-2024 Potassium [Moles/volume] in Serum or Plasma POTASSIUM Lab Routine Cellulitis of right leg Expected: 02/01/2024, Expires: 05/02/2024 [facility] Work Phone: Comment on above: Expected: 02/01/2024, Expires: Start: 01-29-2024 End: 01-29-2024 Patient encounter procedure 01/29/2024 11:20 AM EDT Office Visit [facility] [address] [place] [address] Marilia Orozco APRN.VP CUSTOMER SERVICE [address] [place] [address] follow up [facility] Comment on above: follow up Start: 01-29-2024 End: 01-29-2024 ambulatory 01/29/2024 10:30 AM EDT OT/PT/Speech Visit [facility] [address] [address] Yogesh Forman, PT [address] [address] R26.81 (ICD-10-CM) - Unsteady gait when walking [facility] Comment on above: R26.81 (ICD-10-CM) - Unsteady gait when walking Start: 01-25-2024 End: 01-25-2024 ambulatory 01/25/2024 10:45 AM EDT OT/PT/Speech Visit [facility] [address] [place] [address] Yogesh Forman, PT [address] [place] [address] R26.81 (ICD-10-CM) - Unsteady gait when walking [facility] Comment on above: R26.81 (ICD-10-CM) - Unsteady gait when walking Start: 01-24-2024 End: 01-24-2024 Patient encounter procedure 01/24/2024 12:40 PM EDT Office Visit [facility] [address] [place] [address] Marilia Orozco APRN.VP CUSTOMER SERVICE [address] [place] [address] follow up cellulitis [facility] Comment on above: follow up cellulitis Start: 01-22-2024 End: 01-22-2024 ambulatory 01/22/2024 3:00 PM EDT OT/PT/Speech Visit [facility] COUNTS INCLUDE [facility] BEDS AT [facility] Physical Therapy [address] [place] [address] Yogesh Forman, PT [address] [place] [address] R26.81 (ICD-10-CM) - Unsteady gait when walking [facility] Comment on above: R26.81 (ICD-10-CM) - Unsteady gait when walking Start: 01-22-2024 End: 01-22-2024 Patient encounter procedure 01/22/2024 11:20 AM EDT Office Visit [facility] [address] [place] [address] Agnes Diaz MD [address] [place] [address] Derm follow up [facility] Comment on above: Derm follow up Start: 01-19-2024 End: 01-19-2024 Patient encounter procedure 01/19/2024 6:30 PM EDT Appointment Radiology [address] [place] [address] Pain and swelling of right lower leg [M79.661, M79.89] Radiology Comment on above: Pain and swelling of right lower leg [M7 9.661, M79.89] Start: 01-18-2024 End: 01-18-2024 Patient encounter procedure 01/18/2024 9:00 AM EDT Office Visit Pulmonology [address] [place] [address] [place] [address] [place] [address] 2 month f/u Pulmonology Comment on above: 2 month f/u Start: 01-17-2024 End: 01-17-2024 ambulatory 01/17/2024 3:15 PM EDT OT/PT/Speech Visit [facility] [address] [place] [address] Golias, Yogesh, PT [address] [place] [address] R26.81 (ICD-10-CM) - Unsteady gait when walking [facility] Comment on above: R26.81 (ICD-10-CM) - Unsteady gait when walking Start: 01-16-2024 End: 01-16-2024 Patient encounter procedure 01/16/2024 1:00 PM EDT Office Visit Cardiology [address] [address] echo Cardiology Comment on above: echo Start: 01-15-2024 End: 01-15-2024 ambulatory 01/15/2024 8:45 AM EDT OT/PT/Speech Visit [facility] [address] [place] [address] KasTabby gomez, PURCHASING MANAGER/SALES [address] [place] [address] R26.81 (ICD-10-CM) - Unsteady gait when walking [facility] Comment on above: R26.81 (ICD-10-CM) - Unsteady gait when walking Start: 01-10-2024 End: 01-10-2024 ambulatory 01/10/2024 10:00 AM EDT OT/PT/Speech Visit [facility] [address] [place] [address] Golias, Yogesh, PT [address] [place] [address] R26.81 (ICD-10-CM) - Unsteady gait when walking [facility] Comment on above: R26.81 (ICD-10-CM) - Unsteady gait when walking Start: 01-08-2024 End: 01-08-2024 ambulatory 01/08/2024 9:30 AM EDT OT/PT/Speech Visit [facility] [address] [place] [address] Kasjudyanjelica Tabby, PURCHASING MANAGER/SALES [address] [place] [address] R26.81 (ICD-10-CM) - Unsteady gait when walking [facility] Comment on above: R26.81 (ICD-10-CM) - Unsteady gait when walking Start: 01-04-2024 End: 01-04-2024 ambulatory 01/04/2024 3:45 PM EDT OT/PT/Speech Visit [facility] [address] [place] [address] Yogesh Forman, PT [address] [place] [address] R26.81 (ICD-10-CM) - Unsteady gait when walking [facility] Comment on above: R26.81 (ICD-10-CM) - Unsteady gait when walking Start: 12-31-2023 COVID-19 Vaccine ( season) COVID-19 Vaccine () [facility] Start: 12-31-2023 Covid-19 Vaccine ( season) Covid-19 Vaccine ( season) [facility] Start: 12-31-2023 Covid-19 Vaccine () Covid-19 Vaccine () [facility] Start: 12-31-2023 Influenza [facility] Start: 12-19-2023 End: 12-19-2023 Patient encounter procedure 12/19/2023 2:30 PM EDT Office Visit Vascular Medicine [address] [place] [address] Sidra Gómez MD [address] [place] [address] 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] Vascular Medicine Comment on above: Other secondary pulmonary hypertension ( HCC) [I27.29] Start: 12-18-2023 End: 12-18-2023 ambulatory 12/18/2023 8:30 AM EDT OT/PT/Speech Visit [facility] [address] [place], [place] [id number] Yogesh Forman, PT [address] [place], [place] [id number] Unsteady gait when walking [facility] Comment on above: Unsteady gait when walking Start: 12-12-2023 End: 12-12-2023 Patient encounter procedure 12/12/2023 9:40 AM EDT Office Visit Cardiology [address] [address] echo Cardiology Comment on above: echo Start: 11-22-2023 Subsequent hospital visit by physician 11/22/2023 1:25 PM EDT Hospital Encounter [facility] [address] [place] [address] 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] [facility] Comment on above: Other secondary pulmonary hypertension ( HCC) [I27.29] Start: 11-09-2023 End: 11-09-2023 Patient encounter procedure Pulmonology Comment on above: Saddle PE, severe pulmonary hypertension - sched with another provider due to sooner avail Start: 11-03-2023 ANNUAL PCP TEAM CHRONIC DISEASE VISIT ANNUAL PCP TEAM CHRONIC DISEASE VISIT [facility] Start: 11-03-2023 Complete blood count Hemoglobin/Hematocrit [facility] Start: 11-03-2023 HEMOGLOBIN/HEMATOCRIT HEMOGLOBIN/HEMATOCRIT [facility] Start: 11-03-2023 Hepatitis B surface antibody level LDL CHOLESTEROL [facility] Start: 11-03-2023 SERUM CREATININE SERUM CREATININE [facility] Start: 10-31-2023 End: 10-31-2023 Patient encounter procedure 10/31/2023 9:40 AM EDT Office Visit [facility] [address] [facility] [address] Marilia Orozco APRN.VP CUSTOMER SERVICE [address] [place] [address] 3 month follow up [facility] Comment on above: 3 month follow up Start: 10-30-2023 End: 01-29-2024 PT panel - Platelet poor plasma by Coagulation assay PROTHROMBIN TIME Lab STAT Acute saddle pulmonary embolism, unspecified whether acute cor pulmonale present (HCC) Expected: 10/30/2023, Expires: 01/29/2024 [facility] Work Phone: Comment on above: Expected: 10/30/2023, Expires: Start: 10-30-2023 End: 10-30-2023 Patient encounter procedure 10/30/2023 1:20 PM EDT Office Visit [facility] [address] [place] [address] Agnes Diaz MD [address] [facility] [place] [address] 40 min hospital follow up [facility] Comment on above: 40 min hospital follow up Start: 09-13-2023 Covid-19 Vaccine () Covid-19 Vaccine () [facility] Start: 05-23-2023 BP CONTROLLED (<130/80) BP CONTROLLED (<130/80) [facility] Start: 05-01-2023 Advance Directive Discussion Advance Directive Discussion [facility] Start: 05-01-2023 Behavioral Health Screening Behavioral Health Screening [facility] Start: 05-01-2023 Depression Assessment Depression Assessment [facility] Start: 04-13-2023 ANNUAL PCP TEAM CHRONIC DISEASE VISIT ANNUAL PCP TEAM CHRONIC DISEASE VISIT [facility] Start: 04-13-2023 Medicare Annual Wellness Visit Medicare Annual Wellness Visit [facility] Start: 04-13-2023 SERUM CREATININE SERUM CREATININE [facility] Start: 02-11-2023 BP CONTROLLED (<130/80) BP CONTROLLED (<130/80) [facility] Start: 12-30-2022 Covid-19 Vaccine () Covid-19 Vaccine () [facility] Start: 12-30-2022 Influenza vaccination [facility] Start: 12-01-2022 Adult depression screening assessment DEPRESSION SCREENING [facility] Start: 12-01-2022 ANNUAL PCP TEAM CHRONIC DISEASE VISIT ANNUAL PCP TEAM CHRONIC DISEASE VISIT [facility] Start: 12-01-2022 SERUM CREATININE SERUM CREATININE [facility] Start: 07-12-2022 ANNUAL PCP TEAM CHRONIC DISEASE VISIT ANNUAL PCP TEAM CHRONIC DISEASE VISIT [facility] Start: 07-12-2022 BP CONTROLLED (<130/80) BP CONTROLLED (<130/80) [facility] Start: 07-12-2022 HEMOGLOBIN/HEMATOCRIT HEMOGLOBIN/HEMATOCRIT [facility] Start: 07-12-2022 Hepatitis B surface antibody level LDL CHOLESTEROL [facility] Start: 07-12-2022 SERUM CREATININE SERUM CREATININE [facility] Start: 06-19-2022 COVID-19 VACCINE (7 - Pfizer series) COVID-19 VACCINE (7 - Pfizer series) [facility] Start: 05-23-2022 End: 06-06-2022 Influenza virus A and B RNA and SARS-CoV-2 (COVID-19) N gene panel - Respiratory specimen by DANNIELLE with probe detection [facility] Work Phone: Comment on above: Expected: 05/23/2022, Expires: Start: 05-01-2022 ADVANCE DIRECTIVE DISCUSSION ADVANCE DIRECTIVE DISCUSSION [facility] Start: 05-01-2022 DEPRESSION ASSESSMENT DEPRESSION ASSESSMENT [facility] Start: 12-30-2021 Influenza vaccination INFLUENZA (#1) [facility] Start: 12-14-2021 SHINGRIX VACCINE (3 of 3) SHINGRIX VACCINE (3 of 3) [facility] Start: 12-02-2021 End: 02-01-2022 Comprehensive metabolic 2000 panel - Serum or Plasma COMP METABOLIC PANEL Lab Routine Stage 3b chronic kidney disease (HCC) Expected: 12/02/2021, Expires: 02/01/2022 [facility] Work Phone: Comment on above: Expected: 12/02/2021, Expires: 2 Start: 11-17-2021 COVID-19 VACCINE (5 - Booster for Pfizer series) COVID-19 VACCINE (5 - Booster for Pfizer series) [facility] Start: 07-30-2021 Adult depression screening assessment DEPRESSION SCREENING [facility] Start: 07-30-2021 BP CONTROLLED (<130/80) BP CONTROLLED (<130/80) [facility] Start: 05-01-2021 ADVANCE DIRECTIVE DISCUSSION ADVANCE DIRECTIVE DISCUSSION [facility] Start: 05-01-2021 DEPRESSION ASSESSMENT DEPRESSION ASSESSMENT [facility] Start: 04-29-2013 SHINGRIX VACCINE (2 of 3) SHINGRIX VACCINE (2 of 3) [facility] Start: 2004 RSV Vaccine (1 - 1-dose 60+ series) RSV Vaccine (1 - 1-dose 60+ series) [facility] Start: 1962 Anxiety Screening Anxiety Screening [facility] Start: 1962 Depression Screening Depression Screening [facility] Start: 1962 Hepatitis C screening Hepatitis C Screening [facility] Start: 1944 Lipid panel Lipid Panel [facility] Start: 1944 Medicare Annual Wellness Visit Medicare Annual Wellness Visit (AWV) [facility] End: 11-03-2023 Echocardiography ECHO Cardiology Routine Essential hypertension, benign Stage 3b chronic kidney disease (HCC) Bilateral leg edema ASHD (arteriosclerotic heart disease) 1 Occurrences starting 11/02/2022 until 11/03/2023 [facility] Work Phone: Comment on above: 1 Occurrences starting 11/02/2022 until 11/03/2023 End: 11-08-2024 Echocardiography ECHO Cardiology Routine Other secondary pulmonary hypertension (HCC) History of pulmonary embolism 1 Occurrences starting 11/09/2023 until 11/08/2024 [facility] Comment on above: 1 Occurrences starting 11/09/2023 until 11/08/2024 Hemoglobin A1c/Hemoglobin.total in Blood HEMOGLOBIN A1C (POC) Lab Routine Prediabetes Ordered: 08/01/2023 [facility] Work Phone: Comment on above: Ordered: 08/01/2023 Hzv zoster vacc georgiana mbinant adjuvanted im njx ZOSTER VACC RECOMBINANT,IM Immunization/Injection Routine Need for vaccination Ordered: 10/19/2021 [facility] Work Phone: Comment on above: Ordered: 10/19/2021 End: 02-22-2025 MR Knee - right WO contrast MRI KNEE WO IVCON RIGHT Radiology Routine Acute pain of right knee 1 Occurrences starting 01/24/2024 until 02/22/2025 [facility] Work Phone: Comment on above: 1 Occurrences starting 01/24/2024 until 02/22/2025 End: 12-08-2024 NM Lung Ventilation and Perfusion NM LUNG VENT / PERF VQ Radiology Routine Other secondary pulmonary hypertension (HCC) 1 Occurrences starting 11/09/2023 until 12/08/2024 [facility] Work Phone: Comment on above: 1 Occurrences starting 11/09/2023 until 12/08/2024 Patient Education [facility] Work Phone: Patient referral [facility] Work Phone: PT ED NEPHROLOGY PT ED NEPHROLOG Y Other 10/30/2023 [facility] Work Phone: PT PLAN OF CARE CERTIFICATION PT PLAN OF CARE CERTIFICATION Procedures Routine Chronic bilateral low back pain with bilateral sciatica At high risk for falls Age-related physical debility Personal history of fall Ordered: 12/09/2021 [facility] Work Phone: Comment on above: Ordered: 12/09/2021 PT PLAN OF CARE CERTIFICATION PT PLAN OF CARE CERTIFICATION Procedures Routine Chronic bilateral low back pain with bilateral sciatica Ordered: 11/29/2022 [facility] Comment on above: Ordered: 11/29/2022 End: 02-16-2025 XR Knee - right 4 Views XR KNEE GENERAL 4V AP BOTH/PA BOTH/LAT/MERC RIGHT Radiology Routine Acute pain of right knee 1 Occurrences starting 01/18/2024 until 02/16/2025 [facility] Work Phone: Comment on above: 1 Occurrences starting 01/18/2024 until 02/16/2025 XR Knee - right 4 Views XR KNEE GENERAL 4V AP BOTH/PA BOTH/LAT/MERC RIGHT Radiology Routine Acute pain of right knee 01/18/2024 12:32 PM EDT [facility] Immunizations Immunization Date Immunization Notes Care Provider Fa abbey 02-14-2024 COVID-19 vaccine, ag e 12+ yr (PFIZER-BIONTECH COMIRNATY) Marilia Podlogar SENIOR COMMUNICATIONS ENGINEER.VP CUSTOMER SERVICE Work Phone: [facility] 02-14-2024 influenza, high dose seasonal, preservative-free Marilia Podlogar SENIOR COMMUNICATIONS ENGINEER.VP CUSTOMER SERVICE Work Phone: [facility] 05-15-2023 COVID-19 vaccine, ag e 12+ yr, season (PFIZER-BIONTECH) Marilia Podlogar SENIOR COMMUNICATIONS ENGINEER.VP CUSTOMER SERVICE Work Phone: [facility] 05-15-2023 influenza (HD-IIV4) vaccine, age 65+ yr, high dose, quadrivalent, PF (FLUZONE HIGH-DOSE) Marilia Podlogar SENIOR COMMUNICATIONS ENGINEER.VP CUSTOMER SERVICE Work Phone: [facility] 05-15-2023 influenza virus vaccine, unspecified formulation Leonial Triana RN Work Phone: [facility] 05-06-2023 respiratory syncytia l virus (RSV) vaccine, adjuvanted (AREXVY) Marilia Podlogar SENIOR COMMUNICATIONS ENGINEER.VP CUSTOMER SERVICE Work Phone: [facility] 03-03-2022 zoster vaccine recombinant Anusha Trevino MA [facility] 02-16-2022 Covid Pfizer Bivalen t Booster Dr. Salvador Diaz MD Work Phone: [facility] 02-16-2022 influenza, high-dose , quadrivalent vaccine (FLUZONE HIGH DOSE QUADRIVALENT) Agnes Diaz MD Work Phone: [facility] 02-16-2022 influenza virus vaccine, unspecified formulation Wade Marquez Jr., MD Work Phone: [facility] 10-19-2021 zoster vaccine recombinant Mi Nurse Work Phone: [facility] Work Phone: 09-22-2021 COVID-19 original vaccine, age 12+ yr, monovalent (PFIZER-BIONTECH - AGUIAR TOP) Agnes Diaz MD Work Phone: [facility] 09-22-2021 COVID-19 vaccine, ag e 12+ yr (PFIZER-BIONTECH - PURPLE TOP) Agnes Diaz MD Work Phone: [facility] 02-01-2021 Covid (Pfizer) Dr. Elmer Diaz MD Work Phone: [facility] 01-12-2021 influenza, high-dose , quadrivalent vaccine (FLUZONE HIGH DOSE QUADRIVALENT) Agnes Diaz MD Work Phone: [facility] 07-17-2020 COVID-19 vaccine, ag e 12+ yr (PFIZER-BIONTECH - PURPLE TOP) Agnes Diaz MD Work Phone: [facility] 06-26-2020 COVID-19 vaccine, ag e 12+ yr (PFIZER-BIONTECH - PURPLE TOP) Agnes Diaz MD Work Phone: [facility] 02-22-2020 influenza, high-dose , quadrivalent vaccine (FLUZONE HIGH DOSE QUADRIVALENT) Agnes Diaz MD Work Phone: [facility] 08-01-2019 tetanus toxoid, redu sakshi diphtheria toxoid, and acellular pertussis vaccine, adsorbed Agnes Diaz MD Work Phone: [facility] 02-05-2019 influenza, high dose seasonal, preservative-free Agnes Diaz MD Work Phone: [facility] 01-29-2018 influenza virus vaccine, unspecified formulation Agnes Diaz MD Work Phone: [facility] 06-09-2017 influenza, high dose seasonal, preservative-free Agnes Diaz MD Work Phone: [facility] Work Phone: 05-10-2016 pneumococcal conjuga te vaccine, 13 valent Agnes Diaz MD Work Phone: [facility] 02-20-2016 influenza, high dose seasonal, preservative-free Agnes Diaz MD Work Phone: [facility] 01-21-2016 Influenza virus vaccine [facility] 02-19-2015 influenza, high dose seasonal, preservative-free Agnes Diaz MD Work Phone: [facility] Work Phone: 02-05-2014 influenza, injectabl e, quadrivalent, preservative free Dr. Salvador Diaz MD Work Phone: [facility] 02-05-2014 influenza, seasonal, injectable Agnes Diaz MD Work Phone: [facility] 03-04-2013 zoster vaccine, live Marcelo Diaz MD Work Phone: [facility] 02-09-2013 influenza virus vaccine, unspecified formulation Agnes Diaz MD Work Phone: [facility] 04-11-2012 influenza virus vaccine, unspecified formulation Agnes Diaz MD Work Phone: [facility] 03-14-2011 influenza virus vaccine, unspecified formulation Agnes Diaz MD Work Phone: [facility] Work Phone: 03-08-2010 influenza virus vaccine, unspecified formulation Agnes Diaz MD Work Phone: [facility] 03-08-2010 pneumococcal polysaccharide vaccine, 23 valent Agnes Diaz MD Work Phone: [facility] 04-20-2009 novel [id number], preservative-free, injectable Dr. Salvador Diaz MD Work Phone: [facility] 02-06-2009 influenza virus vaccine, unspecified formulation Agnes Diaz MD Work Phone: [facility] Work Phone: 10-04-2007 tetanus toxoid, redu sakshi diphtheria toxoid, and acellular pertussis vaccine, adsorbed Agnes Diaz MD Work Phone: [facility] Work Phone: 04-14-2006 influenza virus vaccine, unspecified formulation Agnes Diaz MD Work Phone: [facility] Work Phone: 1945 pneumococcal conjuga te vaccine, 7 valent Bruna Chowdary [facility] Payers Date Payer Category Payer Self-pay [id number] 2023 Unknown AARP AARP [id number] 2023-Present [address] [place] [address] [id number] 2017 Private Health Insurance [facility] AARP SUPPLEMENT [id number] 2017-Present [phone] [address] [place] [address] Indemnity [id number] 2017 Private Health Insurance [id number] 2017 Unknown [id number] 2014 Unknown [id number] 2009 Medicare MEDICARE MEDICAR E A AND B [id number] 2009-Present [phone] [place] [address] Medicare [id number] 2009 Medicare [id number] .[id number] 2009 Medicare [id number] 1945 Unknown [id number] 2.16.840.1.027179.3.579.2 .356 1944 Unknown [id number] 2.16.840.1.899637.3.579.2 .356 1944 Unknown [id number] 2.16.840.1.916842.3.579.2 .1244 Unknown [id number] 2.16.840.1.463024.3.579.2 .462 Unknown [id number] 2.16.840.1.903441.3.579.2 .462 Unknown [id number] 2.16.840.1.751998.3.579.2 .462 Unknown [id number] 2.16.840.1.861237.3.579.2 .462 Unknown [id number] 2.16.840.1.153875.3.579.2 .462 Unknown [id number] 2.16.840.1.578390.3.579.2 .462 Unknown [id number] 2.16.840.1.366457.3.579.2 .462 Unknown [id number] 2.16.840.1.772924.3.579.2 .462 Unknown [id number] 2.16.840.1.246083.3.579.2 .462 Unknown [id number] 2.16.840.1.971958.3.579.2 .462 Unknown [id number] 2.16.840.1.956745.3.579.2 .462 Unknown [id number] 2.16.840.1.360618.3.579.2 .462 Unknown [id number] 2.16.840.1.657318.3.579.2 .462 Unknown [id number] 2.16.840.1.965552.3.579.2 .462 Unknown [id number] 2.16.840.1.709932.3.579.2 .462 Unknown [id number] 2.16.840.1.558240.3.579.2 .462 Unknown [id number] 2.16.840.1.058915.3.579.2 .462 Unknown [id number] 2.16.840.1.892781.3.579.2 .462 Unknown [id number] 2.16.840.1.382978.3.579.2 .462 Unknown [id number] 2.16.840.1.337848.3.579.2 .462 Social History Date Type Detail Facility Start: 01-01-2021 [facility] Start: 1945 End: 1945 Sex Assigned At Male [facility] Start: 04-28-2011 End: 11-09-2023 Tobacco smoking status NHIS Never smoked tobacco [facility] Start: 07-12-2021 End: 10-08-2024 Alcohol intake Current non-drinker of alcohol (finding) [facility] Start: 01-13-2020 End: 10-27-2022 History SDOH Alcohol Frequency 1 [facility] Start: 01-13-2020 History SDOH Alcohol Std Drinks 98 [facility] Start: 11-18-2019 End: 10-27-2022 History SDOH Social Connections Phone 5 [facility] Start: 11-18-2019 End: 10-27-2022 History SDOH Social Connections Get Together 2 [facility] Start: 11-18-2019 End: 10-27-2022 History SDOH Social Connections Episcopalian 3 [facility] Start: 11-18-2019 History SDOH Physical Activity DPW 6 [facility] Start: 10-08-2021 End: 01-15-2024 Exposure to SARS-CoV-2 (event) Not sure [facility] Work Phone: Start: 04-28-2011 End: 11-09-2023 Tobacco use and exposure Smokeless tobacco non-user [facility] Start: 10-27-2022 History SDOH Alcohol Std Drinks 0 [facility] Start: 10-27-2022 History SDOH Social Connections Get Together 4 [facility] Start: 10-27-2022 End: 09-25-2024 History of Social function [facility] Start: 10-27-2022 End: 09-25-2024 Social connection and isolation panel [facility] Do you belong to any clubs or organizations such as confucianist groups, unions, fraternal or athletic groups, or school groups? Yes [facility] Are you now , , , , never or living with a partner? [facility] How often to you hav e a drink containing alcohol? Never [facility] How many standard dr inks containing alcohol do you have on a typical day? Patient does not drink [facility] Do you feel stress - tense, restless, nervous, or anxious, or unable to sleep at night because your mind is troubled all the time - these days [OSQ] Not at all [facility] (I/We) worried wheth er (my/our) food would run out before (I/we) got money to buy more. Never true [facility] In the past 12 month s, was there a time when you were not able to pay the mortgage or rent on time? No [facility] Start: 07-31-2018 Gender identity Identifies as male gender (finding) [facility] Start: 12-28-2020 Sexual orientation Heterosexual (finding) [facility] Start: 09-04-2016 None [facility] Start: 09-04-2016 Spouse/ Significant Other [facility] History of tobacco use Passive smoker [facility] Start: 1945 Sex assigned at Not on file [facility] Work Phone: Start: 07-04-2024 Sex Male (finding) [facility] Medical Equipment Procedure Code Equipment Code Equipment Origin al Text Equipment Identifier Dates ERCP (endoscopic retrograde cholangiopancreatog justin) ([id number]) Polymeric biliary stent, non-bioabsorbable [id number] [facility] Start: 03-27-2024 Liner 36mm 0d F X3 7.9mm Acetabular Hip - [id number] Start: 06-03-2019 Trident Solidback?Acetabula r Shell 58mm F [id number] Start: 06-03-2019 Head V40 36mm 0m m Offset Taper Biolox Delta Femoral Hip - [id number] Start: 06-03-2019 Stem Accolade Ii 6 127d Femoral - [id number] Start: 06-03-2019 Goals Date Patient Goal Desired Activity /State Personal health goal Functional Status Date Assessment Result Facility 03-28-2024 Functional status Ambulates [facility] Work Phone: 10-27-2023 Are you deaf, or do you have serious difficulty hearing No 10/27/2023 4:08 PM EDT Virgilio Bee RN No [facility] 10-27-2023 Are you blind, or do you have serious difficulty seeing, even when wearing glasses No 10/27/2023 4:08 PM Virgilio Ambrose RN No [facility] 10-27-2023 Do you have serious difficulty walking or climbing stairs No 10/27/2023 4:08 PM EDVirgilio Hernandez RN No [facility] 10-27-2023 Do you have difficul ty dressing or bathing No 10/27/2023 4:08 PM Virgilio Ambrose RN No [facility] 10-27-2023 Because of a physica l, mental, or emotional condition, do you have difficulty doing errands alone such as visiting a physician's office or shopping No 10/27/2023 4:08 PM Virgilio Ambrose RN No [facility] Mental Status Date Assessment Result Facility 10-07-2024 Cognitive function Voice/Name [facility] Work Phone: 07-04-2024 Cognitive function Voice/Name [facility] Work Phone: 03-28-2024 Cognitive function Level Of Cons ciousness Awake;Alert;Appropriate;Fol lows Commands [facility] Work Phone: 03-27-2024 Cognitive function Voice/Name [facility] Work Phone: 10-27-2023 Because of a physica l, mental, or emotional condition, do you have serious difficulty concentrating, remembering, or making decisions 10/27/2023 4:08 PM EDT Virgilio Bee, CHAD No [facility] Clinical Notes 06-03-2019 to 10-10-2024 Telephone Encounter - Malachi Castillo RN - 10/10/2024 8:39 AM EDTTelephone Encounter - Malachi Castillo RN - 10/10/2024 8:39 AM EDSelam Macias RT(R) - 10/08/2024 10:20 AM EDT Note Date & Type Note Facility 10-10-2024 Telephone encounter Note Pt returned call and given provider's message below with verbalized understanding. [facility] 10-10-2024 Miscellaneous Notes Pt returned call and [...] Marilia Orozco APRN.CNP documented in this encounter [facility] 10-09-2024 Telephone encounter Note Images from the original note were not included. Marilia Orozco APRN.CNP P Wstr Fp Podlogar Pool TSH level in normal range. Continue current dose of synthroid. Marilia Orozco APRN.CNP [facility] 10-09-2024 Telephone encounter Note Phoned patient left message to return call and ask to speak to a nurse for results. [facility] 10-09-2024 Telephone encounter Note ----- Message from Marilia Orozco APRN.CNP sent at 10/08/2024 2:41 PM EDT ----- Hand and wrist xray shows possible area of healing of wrist without any acute fracture. Also shows multiple areas of hand and wrist mild to severe arthritic changes. Marilia Orozco APRN.CNP [facility] 10-08-2024 History of Presen t illness Narrative [...] PATIENT PRESENTS WITH AN IMPLANTABLE OR ATTACHED EMAIL ENGINEER: No RADIOLOGY DEPARTMENT: General X-ray: Exam(s) Completed: Upper Extremity X-Ray(s): Wrist, left and Hand, left PERIPHERAL IV DATA: Not applicable SIGNED BY: RT Ministerio(Tarah) October 08, 2024 10:56 AM documented in this encounter [facility] 10-08-2024 Note HNO ID: [id number] Author: SELAM SCHMID RT(R) Service: ? Author [...] PATIENT PRESENTS WITH AN IMPLANTABLE OR ATTACHED EMAIL ENGINEER: No RADIOLOGY DEPARTMENT: General X-ray: Exam(s) Completed: Upper Extremity X-Ray(s): Wrist, left and Hand, left PERIPHERAL IV DATA: Not applicable SIGNED BY: RT Ministerio(R) October 08, 2024 10:56 AM [facility] 10-08-2024 Instructions Marilia Orozco APRN.VP CUSTOMER SERVICE - 10/08/2024 9:45 AM EDT - Continue taking your prescribed [place] for pain as directed; do not take extra Tylenol or any ibuprofen/NSAIDs while on Eliquis. - Apply ice to your left wrist for 15-20 minutes at a time as needed for pain relief. - You may use a compression wrap on your wrist if it does not overly limit your hand use. - Get your thyroid blood work today--check in at the front loader residential driver for labs. - Have X-rays of your left hand and wrist today--check in at the front loader residential driver for imaging. - We will review your X-ray results to determine if there is a break, sprain, or arthritis flare and plan any further treatment. documented in this encounter [facility] 10-08-2024 Note HNO ID: [id number] Author: MARILIA OROZCO APRN.RUBÉN Service: ? Author Type: Nurse Practitioner Type: Progress Notes Filed: 10/08/2024 09:54 Note Text: 10/08/2024 Patient presents with: Pain: Left wrist pain, fell about a month ago and caught himself with his hands. Recording using [employer] software for draft documentation of the visit was discussed with the patient/authorized physician representative; all questions welcomed and answered. Patient/authorized physician representative agreed to proceed SUBJECTIVE: This is [...] of skin of nose Dr. Chowdary in [place] Stage 3a chronic kidney disease (HCC) Venous [...] by mouth daily at bedtime. CPAP AutoPAP [id number]. Mask per preference, tubing, filters, humidity. [employer]lies. Dx: G47.33. Fax 30 day compliance report to [phone]. CPAP Please provide mask fitting. Pt with [...] due on 08/14/2024 (more content not included)... [facility] 10-08-2024 History of Presen t illness Narrative 10/08/2024 Patient presents with: Pain: Left wrist pain, fell about a month ago and caught himself with his hands. Recording using [employer] software for draft documentation of the visit was discussed with the patient/authorized physician representative; all questions welcomed and answered. Patient/authorized physician representative agreed to proceed SUBJECTIVE: This is [...] of skin of nose Dr. Chowdary in [place] Stage 3a chronic kidney disease (HCC) Venous [...] by mouth daily at bedtime. CPAP AutoPAP [id number]. Mask per preference, tubing, filters, humidity. [employer]. Dx: G47.33. Fax 30 day compliance report to [phone]. CPAP Please provide mask fitting. Pt with [...] to reduce inflammation. - Patient currently on [place] for lower back pain and arthritis; advised against additional Tylenol due to current medication regimen. - Patient on Eliquis; advised against NSAIDs. - Discussed potential for sprains to take 6-8 weeks to heal. - Follow-up pending X-ray results to determine further management. Marilia Orozco APRN.VP CUSTOMER SERVICE Prescription instructions reviewed with patient as applicable. [...] 3 - Low documented in this encounter [facility] 10-07-2024 History and physical note Note Date/Time October 07, 2024 11:32am [facility] Medical Records Department [address] [place] [address] History & Physical Exam 10/07/24 1130 MR#: [id number] Acct: [id number] Name: FRAN PAREKH Rep #:[id number] : 1945 79 From: [facility] Friend PCP: Dr. Salvador Diaz MD Status :[facility] Location: [place] [address] HPI - General General Date of Admission: 10/07/24 Date of Service: 10/07/24 Chief Complaint: Ampulla with low-grade dysplasia HPI Narrative FRAN PAREKH, is a 79 M who presents for repeat ERCP with ampullectomy. [facility] hospitalization 03.26.24 - 03.28.24 dizziness - consulted [...] is having ablation done with Dr Cabezas. [facility] Medical History Carpal tunnel syndrome on both sides Cancer Wears glasses Thyroid disease Shingles Inguinal hernia Cardiology follow-up encounter History of stress test Choledocholithiasis Current use of alf 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 Elevated liver enzymes Pancreatic mass High [...] A biliary stent was visible on the picket labor union film. The esophagus was successfully intubated under [...] for CMV (cytomegalovirus) is negative (performed at [facility]) - IHC for p53 is wild-type. - IHC for Ki67 is not significantly increased We will schedule him for a repeat endoscopic procedure for of his ampulla due tothe finding of low grade dysplasia. 10/07/24 1132 <Electronically signed by Alex Sher DO> Cosigner Signature (if applicable): CC: Dr. Salvador Diaz MD; Alex Sher DO~ Signed [facility] Work Phone: 1(913) 204-464206-09-2025 Consult note [facility] Medical Records Department [address] [place] [address] Anesthesia Postop Eval II 10/07/24 1324 MR#: [id number] Acct: [id number] Name: OSEAS PAREKHDaisy DOMINGUEZ Rep #:[id number] : 1945 79 From: Jeff Bennett MD PCP: Dr. Salvador Diaz MD Status :REG SDC Y Race: C Location: [place] [address] Anesthesia Postop Eval I Sum Postop Eval [...] 1325 > Date _ [facility] Signature: Date CC: ~ Signed [facility]06-09-2025 Consult note [facility] Medical Records Department [address] [place] [address] Anesthesia Postop Eval I 10/07/24 1249 MR#: [id number] Acct: [id number] Name: FRAN PAREKH Rep #:[id number] : 1945 79 From: Tevin Vizcaino PCP: Dr. Salvador Diaz MD Status :REG [facility] Y Race: C Location: [place] [address] Anesthesia: Postop Eval I Current Vital Signs [...] Tevin Peñalozaignchantale Signature: Date CC: ~ Signed [facility]06-09-2025 Consult note Author Jeff [facility] Note Date/Time October 07, 2024 10:50 am [facility] Medical Records Department [address] [place] [address] Pre-Anesthesia Evaluation 10/07/24 1049 MR#: [id number] Acct: [id number] Name: FRAN PAREKH Rep #:[id number] : 1945 79 From: Jeff Bennett MD PCP: Dr. Salvador Diaz MD Status :REG [facility] Y Race: C Location: [place] [address] ASA Classification* ASA Classification ASA Classification: 2 [...] stent placement. 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- ERCP 03/24. 10/03/24 10:22 Any Problems With [...] take am of surgery PONV PONV - degreasing wheel operator: PONV - degreasing wheel operator Female No 10/03/24 10:22 HX of Motion [...] 09/17/24 09:36 Respiratory Assessment Respiratory Assessment - degreasing wheel operator: Respiratory Tract Infection Hx - degreasing wheel operator Hx Respiratory Tract Infection No 10/03/24 10:22 STOP Sleep Apnea STOP Sleep Apnea - degreasing wheel operator: STOP Sleep Apnea - degreasing wheel operator Hx Hypertension Yes: CONTROLLED WITH MEDS 10/03/24 [...] 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 Use History - degreasing wheel operator: Tobacco Use History - degreasing wheel operator Tobacco Use Smoking Status Never smoker 10/03/24 10:22 Hx Tobacco Use No 10/03/24 10:22 Years Smoking Packs Smoked per Day Smoking Cessation Date was within the last 15 years Hx Smoking Cessation Date Hx Smoking Cessation Counseling Hematologic Medial History Hematologic Hx - degreasing wheel operator: 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 Hx of Blood Transfusion No 10/03/24 10:22 [...] confused, unrespo /Reproduction History /Reproductive History - degreasing wheel operator: /Reproductive Hx- degreasing wheel operator Hx Now Gestational Age (in weeks): EDC: [...] of stress test Choledocholithiasis Current use of alf 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 Elevated liver enzymes Pancreatic mass High [...] MD Cosigner Signature: Date CC: ~ Signed [facility] Work Phone: 1(560) 578-113806-09-2025 Procedure note [facility] Medical Records Department [address] [place] [address] ERCP Report MR#: [id number] Acct: [id number] Name: IGLESIAFRANDaisy DOMINGUEZ Rep #:[id number] : 1945 79 From: Alex Friend DO PCP: Dr. Salvador Diaz MD Status :[facility] Patient Name: Fran Iglesia Procedure Date: [...] hours 21 minutes 34 seconds Findings: The picket labor [employer] film was normal. The esophagus was successfully [...] bile duct. Procedure Code(s): --- Professional --- 79728, Endoscopic retrograde cholangiopancreatography (ERCP); with placement of endoscopic stent into biliary or pancreatic duct, including pre- and post-dilation and guide wire passage, when performed, including sphincterotomy, when performed, each stent 06503, Endoscopic retrograde cholangiopancreatography (ERCP); with ablation of tumor(s), polyp(s), or other lesion(s), including pre- and post-dilation and guide wire passage, when performed 21877, Endoscopic retrograde cholangiopancreatography (ERCP); with removal of calculi/debris from biliary/pancreatic duct(s) 81294, 59, Endoscopic retrograde cholangiopancreatography (ERCP); with sphincterotomy/papillotomy 25890, Esophagogastroduodenoscopy, flexible, transoral; with removal of tumor(s), polyp(s), or other lesion(s) by hot biopsy forceps 53604, 26, Endoscopic catheterization of the biliary ductal system, radiological supervision and interpretation CPT copyright 2021 [employer]. All rights reserved. The codes documented in this report are preliminary and upon basketballs and footballs reverser review may be revised to meet current compliance requirements. Alex Sher DO 10/07/2024 12:44:24 PM This report has been signed electronically. Number of Addenda: 0 Note Initiated On: 10/07/2024 11:41 AM 10/07/24 1244 Date _ Alex Sher DO Cosigner Signature: Date (if indicated) CC: Dr. Salvador Diaz MD; Alex Sher DO ~ Date Dictated: 10/07/24 1141 Date Transcribed: Storage Worker: LUIS Signed [facility]06-09-2025 Procedure note [facility] Medical Records Department [address] [place] [address] Operative Report - CC Letter MR#: [id number] Acct: [id number] Name: FRAN PAREKH Rep #:[id number] : 1945 79 From: Alex Sher DO PCP: Dr. Salvador Diaz MD Status :REG [facility] 10/07/2024 Salvador Diaz Re : ERCP procedure [...] ~ Date Dictated: 10/07/24 1141 Date Transcribed: Storage Worker: RF Signed [facility]06-09-2025 History and physical note [facility] Medical Records Department [address] [place] [address] History & Physical Exam 10/07/24 1130 MR#: [id number] Acct: [id number] Name: FRAN PAREKH Rep #:[id number] : 1945 79 From: [facility] Friend DO PCP: Dr. Salvador Diaz MD Status :[facility] Location: [place] [address] HPI - General General Date of Admission: 10/07/24 Date of Service: 10/07/24 Chief Complaint: Ampulla with low-grade dysplasia HPI Narrative FRAN PAREKH, is a 79 M who presents for repeat ERCP with ampullectomy. [facility] hospitalization 03.26.24 - 03.28.24 dizziness - consulted [...] is having ablation done with Dr Cabezas. [facility] Medical History Carpal tunnel syndrome on both sides Cancer Wears glasses Thyroid disease Shingles Inguinal hernia Cardiology follow-up encounter History of stress test Choledocholithiasis 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 Elevated liver enzymes Pancreatic mass High [...] A biliary stent was visible on the [employer] film. The esophagus was successfully intubated under [...] for CMV (cytomegalovirus) is negative (performed at [facility]) - IHC for p53 is wild-type. - IHC for Ki67 is not significantly increased We will schedule him for a repeat endoscopic procedure for of his ampulla due tothe finding of low grade dysplasia. 10/07/24 1132 Cosigner Signature (if applicable): CC: Dr. Salvador Diaz MD; Alex Friend, DO~ Signed [facility]06-09-20[facility] Consult note [facility] Medical Records Department [address] [place] [address] Pre-Anesthesia Evaluation 10/07/24 1049 MR#: [id number] Acct: [id number] Name: FRAN PAREKH Rep #:[id number] : 1945 79 From: Jeff Bennett MD PCP: Dr. Salvador Diaz MD Status :REG [facility] Y Race: C Location: [place] [address]- ASA Classification* ASA Classification ASA Classification: 2 [...] stent placement. 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- ERCP 03/24. 10/03/24 10:22 Any Problems With [...] take am of surgery PONV PONV - degreasing wheel operator: PONV - degreasing wheel operator Female No 10/03/24 10:22 HX of Motion [...] 09/17/24 09:36 Respiratory Assessment Respiratory Assessment - degreasing wheel operator: Respiratory Tract Infection Hx - degreasing wheel operator Hx Respiratory Tract Infection No 10/03/24 10:22 STOP Sleep Apnea STOP Sleep Apnea - degreasing wheel operator: STOP Sleep Apnea - degreasing wheel operator Hx Hypertension Yes: CONTROLLED WITH MEDS 10/03/24 [...] 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 Use History - degreasing wheel operator: Tobacco Use History - degreasing wheel operator Tobacco Use Smoking Status Never smoker 10/03/24 10:22 Hx Tobacco Use No 10/03/24 10:22 Years Smoking Packs Smoked per Day Smoking Cessation Date was within the last 15 years Hx Smoking Cessation Date Hx Smoking Cessation Counseling Hematologic Medial History Hematologic Hx - degreasing wheel operator: 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 [...] by mouth daily at bedtime. CPAP AutoPAP [id number]. Mask per preference, tubing, filters, humidity. Lifetime Supplies. Dx: G47.33. Fax 30 day compliance report to [phone]. CPAP Please provide mask fitting. Pt with [...] of skin of nose Dr. Chowdary in [place] Stage 3a chronic kidney disease (HCC) Venous insufficiency PAST SURGICAL HISTORY Procedure Laterality Date ARTHRP ACETBLR/PROX FEM PROSTC AGRFT/ALGRFT Right 06/03/2019 Hip replacement, total COLONOSCOPY FLX DX W/COLLJ SPEC WHEN PFRMD 04/21/11 Repeat 10 [id number] LASER GREENLIGHT prostate, [place] NEUROPLASTY AND/TRANSPOS MEDIAN NRV CARPAL TUNNE Left 01/17/2020 Left carpal tunnel release NEUROPLASTY AND/TRANSPOS MEDIAN NRV CARPAL TUNNE Right 03/04/2020 Right carpal tunnel release RPR UMBILICAL HRNA 5 YRS/> REDUCIBLE TONSILLECTOMY PRIMARY/SECONDARY Tonsillectomy FAMILY HISTORY Problem Relation Age of Onset Heart Mother other (Myocardial infarction) Mother 81 d (more content not included)...[facility] History of Present illness Narrative* Victor Manuel [...] had the pleasure of seeing Fran Tarah Pichardosanaz in consultation for continued evaluation and and [...] by mouth daily at bedtime. CPAP AutoPAP [id number]. Mask per preference, tubing, filters, humidity. Lifetime Supplies. Dx: G47.33. Fax 30 day compliance report to [phone]. CPAP Please provide mask fitting. Pt with [...] of skin of nose Dr. Chowdary in [place] Stage 3a chronic kidney disease (HCC) Venous insufficiency PAST SURGICAL HISTORY Procedure Laterality Date ARTHRP ACETBLR/PROX FEM PROSTC AGRFT/ALGRFT Right 06/03/2019 Hip replacement, total COLONOSCOPY FLX DX W/COLLJ SPEC WHEN PFRMD 04/21/11 Repeat 10 [id number] LASER GREENLIGHT prostate, [place] NEUROPLASTY &/TRANSPOS MEDIAN [...] uU/mL HIV No results found for: HIVSCN, [id number]] Hepatitis B Surface Antigen No results found [...] 25, 2024 8:33 AM documented in [facility] encounterPrem[facility]25 NoteHNO ID: [id number] Author: COLE ALMANZA MD Service: ? Author Type: Physician Type: Progress Notes Filed: 08/31/2024 11:11 Note Text: [facility] Triage Note: Patient presents to the [facility] with complaint of abdominal pain for the last day. He is also experiencing current sciatic pain and taking [place]. He has been unable to take pain medicine today because of upset stomach and wants to avoid further aggravating abdominal pain. He is concerned he may have constipation but also has history of diverticulitis. He is in apparent discomfort in the waiting room. He was offered the opportunity to have initial evaluation here in the [facility] with likely referral where imaging is available. He chooses to go to the ED for evaluation instead. He declines EMS transfer.[facility]05-03-2025 History of Present illness Narrative* Cole Almanza MD - 08/31/2024 11:07 AM EDT [facility] Triage Note: Patient presents to the [facility] with complaint of abdominal pain for the last day. He is also experiencing current sciatic pain and taking [place]. He has been unable to take pain medicine today because of upset stomach and wants to avoid further aggravating abdominal pain. He is concerned he may have constipation but also has history of diverticulitis. He is in apparent discomfort in the waiting room. He was offered the opportunity to have initial evaluation here in the [facility] care with likely referral where imaging is available. He chooses to go to the ED for evaluation instead. He declines EMS transfer. documented in this encounterPremier Health [facility]05-01-2025 Consult note Author Jeff Bennett [facility] Note Date/Time October 07, 2024 1:25p m [facility] Medical Records Department [address] [place] [address] Anesthesia Postop Eval II 10/07/24 1324 MR#: [id number] Acct: [id number] Name: FRAN PAREKH Rep #:[id number] : 1945 79 From: Jeff Bennett MD PCP: Dr. Salvador Diaz MD Status :REG SDC Y Race: C Location: [place] [address] Anesthesia Postop Eval I Sum Postop Eval [...] MD Cosigner Signature: Date CC: ~ Signed [facility] Work Phone: 1(585) 746-755104-29-2025 Telephone encounter Note* Telephone Encounter - Sissy Campbell LPN - 08/27/2024 12:28 PM EDT Completed form faxed back as requested. Sissy Campbell LPN [facility]04-29-2025 Miscellaneous Notes* Telephone Encounter - Sissy Campbell LPN - 08/27/2024 12:28 PM EDT Completed form faxed back as requested. Sissy Campbell LPN * Telephone Encounter - Agnes Diaz MD - 08/27/2024 12:11 PM EDT He is on Eliquis. Ok to stop 2 days prior to procedure. Form completed. * Telephone Encounter - Sissy Campbell LPN - 08/27/2024 11:57 AM EDT Received form from [facility] regarding upcoming procedure and request to stop coumadin. Form forwarded to provider's desk for review. Sissy Campbell LPN documented in this encounterPremier [facility]04-29-2025 Telephone encounter Note * Telephone Encounter - Agnes Diaz MD - 08/27/2024 12:11 PM EDT He is on Eliquis. Ok to stop 2 days prior to procedure. Form completed. [facility]04-29-2025 Telephone encounter Note* Telephone Encounter - Sissy Campbell LPN - 08/27/2024 11:57 AM EDT Received form from [facility] regarding upcoming procedure and request to stop coumadin. Form forwarded to provider's desk for review. Sissy Campbell LPN [facility]04-18-2025 Telephone encounter Note* Telephone Encounter - Marilia Orozco APRN.CNP - 08/16/2024 1:24 PM EDT Order for TSH placed. Marilia Orozco APRN.CNP [facility]04-18-2025 Miscellaneous Notes* Telephone Encounter - Marilia Orozco [...] 6.0%. Marilia Orozco APRN.RUBÉN documented in this encounterPremier Health [facility]04-18-2025 Telephone encounter Note * Telephone Encounter - Katlyn Melissa RN - 08/16/2024 1:13 PM EDT Pt called and is notified of providers results and instructions. Pt voices understanding, after I notified that she wanted him to start taking 2 pills every Monday and one pill every other day. Please place lab orders for recheck on Thyroid. Katlyn Melissa RN [facility]04-18-2025 Telephone encounter Note* Telephone Encounter - Eunice Bruce LPN - 08/16/2024 10:20 AM EDT Telephone call placed to patient. Message left to call office back for update. Eunice Bruce LPN [facility]04-18-2025 Telephone encounter Note* Telephone Encounter - [...] A1c is stable at 6.0%. Marilia Orozco APRN.VP CUSTOMER SERVICE [facility]04-15-2025 History of Present illness Narrative* Marilia [...] gi upset: Yes 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 Sher, sales promoter, for hx of choledocholithiasis. Recent ERCP on [...] of skin of nose Dr. Chowdary in [place] Stage 3a chronic kidney disease (HCC) Venous [...] not taking: Reported on 12/19/2023) CPAP AutoPAP [id number]. Mask per preference, tubing, filters, humidity. Lifetime Supplies. Dx: G47.33. Fax 30 day compliance report to [phone]. CPAP Please provide mask fitting. Pt with [...] Abs Lymph 1.00 - 4.00 k/uL 2.23 Brooks% % 10.0 Abs Brooks <0.87 k/uL 1.03 (H) Eosin% % 1.9 [...] -follow-up with pulmonology as recommended Marilia Orozco APRN.VP CUSTOMER SERVICE Prescription instructions reviewed with patient as applicable. [...] Level: 4 - Moderate documented in this encounterPrem[facility]04-15-2025 NoteHNO ID: [id number] Author: MARILIA OROZCO APRN.RUBÉN Service: ? Author [...] gi upset: Yes 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 Sher, sales promoter, for hx of choledocholithiasis. Recent ERCP on [...] of skin of nose Dr. Chowdary in [place] Stage 3a chronic kidney disease (HCC) Venous [...] not taking: Reported on 12/19/2023) CPAP AutoPAP [id number]. Mask per preference, tubing, filters, humidity. Lifetime Supplies. Dx: G47.33. Fax 30 day compliance report to [phone]. CPAP Please provide mask fitting. Pt with [...] wheezes, rhonchi or r (more content not included)...[facility]04-14-2025 Telephone encounter Note* Telephone Encounter - [...] Bowen RN August 12, 2024 11:34 AM [facility]04-14-2025 Miscellaneous Notes* Telephone Encounter - Carli Bowen [...] 12, 2024 11:34 AM documented in this encounterPremier Health [facility]04-09-2025 NoteHNO ID: [id number] Author: MORELIA MUNGUIA MA Service: ? Author Type: Speech Pathologist Assistant Type: Progress Notes Filed: 08/07/2024 14:12 Note Text: POPULATION HEALTH NAVIGATION OUTREACH Action/FYI Patient returned call and patient declined scheduling. Reason for Outreach Returned Call/MyChart Patient Contacted: Spoke to patient/parent/or legal guardian Patient identified by name and date of : Yes Returned call/MyChart actions taken: Patient declined: Doesn't feel it's necessary Navigation Signature: Morelia Munguia MA August 07, 2024 2:11 [facility]04-09-2025 History of Present illness Narrative* Morelia [...] or unnecessary to reach patient: Left message [employer] message sent HCC related Navigation Signature: Morelia Munguia MA August 07, 2024 12:59 PM documented in this encounterPremier Health [facility]04-09-2025 NoteHNO ID: [id number] Author: MORELIA MUNGUIA MA Service: ? Author Type: Speech Pathologist Assistant Type: Progress Notes Filed: 08/07/2024 13:00 Note [...] Morelia Munguia MA August 07, 2024 12:59 [facility]04-09-2025 NotePatient Outreach (NETNAV) FRAN PAREKH ([id number]) 1945 M Date Time Provider Department 08/07/24 [...] Reason for Visit: Population Health Navigation Outreach [9880] Cmt: [facility] Prescriptions as of 08/07/2024 - lisinopril (ZESTRIL) [...] hour before dental procedure. - CPAP AutoPAP [id number]. Mask per preference, tubing, filters, humidity. Lifetime Supplies. Dx: G47.33. Fax 30 day compliance report to [phone]. - CPAP Please provide mask fitting. Pt [...] 03/25/2009 Open fracture of distal phalangeal tuft [FQS876*08/31/2011 05/09/2014 Internal derangement of right knee [M23.91] [...] chronic kidney disease [N18 (more content not included)...[facility]03-28-2025 Telephone encounter Note* Telephone Encounter - Bob Milligan MD - 07/26/2024 11:46 PM EDT The following approved medication requests have been transmitted electronically. Requested Prescriptions Signed Prescriptions Disp Refills lisinopril (ZESTRIL) 40 mg tablet 90 tablet 1 Sig: Take 1 tablet by mouth once daily. Authorizing Provider: BOB MILLIGAN MD [facility]03-28-2025 Miscellaneous Notes* Telephone Encounter - Bob Milligan [...] 26, 2024 4:43 PM documented in this encounterPrem[facility] Health [facility]03-28-2025 Telephone encounter Note * Telephone Encounter - [...] Castillo RN July 26, 2024 4:43 PM [facility]03-06-2025 Consult note Author Abundio Merrill [facility] Note Date/Time July 04, 2024 9:43 am [facility] Medical Records Department [address] [place] [address] Pre-Anesthesia Evaluation 07/04/24920 MR#: [id number] Acct: [id number] Name: FRAN PAREKH Rep #:[id number] : 1945 78 From: Abundio Merrill MD PCP: Dr. 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- ERCP 03/24. 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: Tobacco Use History - degreasing wheel operator Tobacco Use Smoking Status Never smoker 07/02/24 14:53 Hx Tobacco Use No 07/02/24 14:53 Years Smoking Packs Smoked per Day Smoking Cessation Date was within the last 15 years Hx Smoking Cessation Date Hx Smoking Cessation Counseling Hematologic Medial History Hematologic Hx - degreasing wheel operator: 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 Abundio Merrill MD) Carpal tunnel syndrome on both sides Cancer Wears glasses Thyroid disease Shingles Inguinal hernia Cardiology follow-up encounter History of stress test Choledocholithiasis 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 Elevated liver enzymes Pancreatic mass High [...] MD Cosigner Signature: Date CC: ~ Signed [facility] Work Phone: 1(903) 360-915103-06-2025 Radiology Diagnostic study note [facility] Imaging Services [address] [place] [address] ERCP Biliary/Pancreas MR#: [id number] Acct: [id number] Name: FRAN PAREKH Rep #: [id number] : 1945 78 From: Jodie Jauregui MD PCP: Dr. Salvador Diaz MD Status: [facility] Study:ERCP Biliary/Pancreas Date of Exam: 07/04/24 Exam# [id number] Ordering Dr: Tarah Sher DO PROCEDURE: ERCP [...] IMPRESSION: Unremarkable endoscopic retrograde cholangiopancreatography. Reading Location: [place] [address] CC: Dr. Salvador Diaz MD; Alex Sher DO ~ Storage Worker: Signed [facility]03-06-2025 Procedure note [facility] Medical Records Department [address] [place] [address] ERCP Report MR#: [id number] Acct: [id number] Name: FRAN PAREKH Rep #:[id number] : 1945 78 From: Alex Sher DO PCP: Dr. Salvador Diaz MD Status :REG [facility] Patient Name: Fran Parekh Procedure Date: 07/04/2024 [...] A biliary stent was visible on the picket labor union film. The esophagus was successfully intubated under [...] biliary tree. Procedure Code(s): --- Professional --- 20537, Endoscopic retrograde cholangiopancreatography (ERCP); with removal of foreign body(s) or stent(s) from biliary/pancreatic duct(s) 66113, Endoscopic retrograde cholangiopancreatography (ERCP); with removal of calculi/debris from biliary/pancreatic duct(s) 33586, Endoscopic retrograde cholangiopancreatography (ERCP); with sphincterotomy/papillotomy 02858, Esophagogastroduodenoscopy, flexible, transoral; with biopsy, single or multiple 74954, 26, Endoscopic catheterization of the biliary ductal system, radiological supervision and interpretation CPT copyright 2021 [employer]. All rights reserved. The codes documented in this report are preliminary and upon basketballs and footballs reverser review may be revised to meet current compliance requirements. Alex Sher DO 07/04/2024 11:05:54 AM This report has been signed electronically. Number of Addenda: 0 Note Initiated On: 07/04/2024 10:18 AM 07/04/24 1105 Date _ Alex Sher DO Cosigner Signature: Date (if indicated) CC: Dr. Salvador Diaz MD; Alex Sher DO ~ Date Dictated: 07/04/24 1018 Date Transcribed: Storage Worker: LUIS Signed [facility]03-06-2025 Procedure note [facility] Medical Records Department [address] [place] [address] Operative Report - CC Letter MR#: [id number] Acct: [id number] Name: FRAN PAREKH Rep #:[id number] : [...] ~ Date Dictated: 07/04/24 1018 Date Transcribed: Storage Worker: RF Signed [facility]03-06-2025 Consult note [facility] Medical Records Department [address] [place] [address] Anesthesia Postop Eval I 07/04/24 1059 MR#: [id number] Acct: [id number] Name: FRAN PAREKH Rep #:[id number] : 1945 78 From: Tevin Vizcaino PCP: Dr. Salvador Diaz MD Status :REG SDC Y Race: C Location: [place] [address] Anesthesia: Postop Eval I Current Vital Signs [...] Silvachantale Peñalozaigner Signature: Date CC: ~ Signed [facility]03-06-2025 Evaluation note* Diagnosis Onset Date Resolution Status Admit Date 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 8:24am Choledocholithiasis acute July 04, 2024 8:24am Ampulla of Vater mass acute Jun 8:21am Choledocholithiasis acute July 23, 2024 8:21am Pancreatic cyst acute June 8:21am Pancreatitis acute July 23, 2024 8:21am [facility] Work Phone: 1(122) 555-330203-06-2025 Evaluation note* Diagnosis Onset Date Resolution Status [...] 2024 10:24am Biliary stricture acute September 10:24am [facility] Work Phone: 1(189) 370-169803-06-2025 History and physical note [facility] Medical Records Department [address] [place] [address] History & Physical Exam 07/04/24 0957 MR#: [id number] Acct: [id number] Name: FRAN PAREKH Rep #:[id number] : 1945 78 From: [facility] Friend DO PCP: Dr. Salvador Diaz MD Status :[facility] Location: [place] [address] HPI - General General Date of Admission: 07/04/24 Date of Service: 07/04/24 Chief Complaint: Biliary stent removal HPI Narrative FRAN PAREKH, is a 78 M who presents for ERCP with stent removal. [facility] hospitalization 03.26.24 - 03.28.24 dizziness - consulted [...] know when his stent will be removed. [facility] Medical History Carpal tunnel syndrome on both sides Cancer Wears glasses Thyroid disease Shingles Inguinal hernia Cardiology follow-up encounter History of stress test Choledocholithiasis Current use of alf 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 Elevated liver enzymes Pancreatic mass High [...] Salvador Diaz MD; Alex Friend, DO~ Signed [facility]03-06-2025 [facility] Consult note [facility] Medical Records Department [address] [place] [address] Pre-Anesthesia Evaluation 07/04/24 0921 MR#: [id number] Acct: [id number] Name: FRAN PAREKH Rep #:[id number] : 1945 78 From: Abundio Merrill MD PCP: Dr. 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- ERCP 03/24. 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: Tobacco Use History - degreasing wheel operator Tobacco Use Smoking Status Never smoker 07/02/24 14:53 Hx Tobacco Use No 07/02/24 14:53 Years Smoking Packs Smoked per Day Smoking Cessation Date was within the last 15 years Hx Smoking Cessation Date Hx Smoking Cessation Counseling Hematologic Medial History Hematologic Hx - degreasing wheel operator: 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 Abundio Merrill MD) Carpal tunnel syndrome on both sides Cancer Wears glasses Thyroid disease Shingles Inguinal hernia Cardiology follow-up encounter History of stress test Choledocholithiasis 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 Elevated liver enzymes Pancreatic mass High [...] MD Cosigner Signature: Date CC: ~ Signed [facility]02-28-2025 Telephone encounter Note* Telephone Encounter - [facility] PSS - 06/28/2024 11:06 AM EST Patient rescheduled on 10/21/2024. [facility]02-28-2025 Miscellaneous Notes* Telephone Encounter - [facility] PSS - 06/28/2024 11:06 AM EST Patient rescheduled on 10/21/2024. * Telephone Encounter - [facility] PSS - 06/24/2024 2:14 PM EST Called patient to reschedule 10/22/[address] Savage, 1st attempt, left . Please offer virtual appointment at [place] [id number] or [facility]. documented in this encounterPrem[facility] Telephone encounter Note * Telephone Encounter - [facility] PSS - 06/24/2024 2:14 PM EST Called patient to reschedule 10/22/[address] Savage, 1st attempt, left . Please offer virtual appointment at [place] [address] or [facility]. [facility]01-22-2025 Telephone encounter Note* Telephone Encounter - Nanette Whelan RN - 05/22/2024 6:17 PM EST Levothyroxine taken care of by PCP. PCP requests that production intern Dr. Savage continue to prescribe pt's Eliquis. Pt would like a 90 day supply sent in to [facility]. Order pended for Eliquis for 90 day supply and routed to Dr. Savage. [facility]01-22-2025 Miscellaneous Notes* Telephone Encounter - Nanette Whelan RN - 05/22/2024 6:17 PM EST Levothyroxine taken care of by PCP. PCP requests that production intern Dr. Savage continue to prescribe pt's Eliquis. Pt would like a 90 day supply sent in to [facility]. Order pended for Eliquis for 90 day [...] on Eliquis for hx of PE. A production intern Dr. Victor Manuel Savage, put pt on this when he was hospitalized for the PEs. Pt does follow up with him-has virtual visit in September. Pt is aware that is the prescribing provider but pt was wondering if Dr. Diaz would take over prescribing it? If Dr. Diaz feels pt should continue to get medication from production intern, please call pt back and let him [...] 21, 2024 9:14 AM documented in this encounterPrem[facility]01-22-2025 Telephone encounter Note * Telephone Encounter - Leonila Winslow LPN - 05/22/2024 11:35 AM EST .Detailed VM left on pt's identified voicemail of information below. Leonila Winslow LPN [facility]01-21-2025 Telephone encounter Note* Telephone Encounter - Agnes Diaz MD - 05/21/2024 12:40 PM EST Rx sent for synthroid. Needs to get Eliquis from prescribing physician. [facility]01-21-2025 Telephone encounter Note* Telephone Encounter - Nanette Whelan RN - 05/21/2024 9:14 AM EST Pt is on Eliquis for hx of PE. A production intern Dr. Victor Manuel Savage, put pt on this when he was hospitalized for the PEs. Pt does follow up with him-has virtual visit in September. Pt is aware that is the prescribing provider but pt was wondering if Dr. Diaz would take over prescribing it? If Dr. Diaz feels pt should continue to get medication from production intern, please call pt back and let him [...] Whelan RN May 21, 2024 9:14 AM [facility]12-13-2024 Telephone encounter Note* Telephone Encounter - Agustín [...] Monroy RN April 12, 2024 2:25 PM [facility]12-13-2024 Miscellaneous Notes* Telephone Encounter - Agustín Monroy [...] 12, 2024 2:25 PM documented in this encounterPremier Health [facility]12-09-2024 NoteHNO ID: [id number] Author: MITCHEL WALTERS RN Service: ? Author Type: Registered Nurse Type: Progress Notes Filed: 04/08/2024 14:15 Note Text: Transitional Care Management (TCM) Follow-Up Note PCP Update / Actionable Items N/A - No specialty updates needed Patient Source: Bjz-gf-Maszxtr (OON) Discharge Outreach Summary: Pt states eating and drinking well. Has f/u with Dr. Sher 04/16 Completed antibiotic therapy. States anxious to discuss stent placement, what happened with testing at [facility]. Patient discharged from [facility] Discharge date: 03/28/24 Admitted for: Abdominal [...] Mitchel Walters RN April 08, 2024 2:05 [facility]12-09-2024 History of Present illness Narrative* Mitchel Walters RN - 04/08/2024 2:04 PM EST Transitional Care Management (TCM) Follow-Up Note PCP Update / Actionable Items N/A - No specialty updates needed Patient Source: Nug-fm-Eujefyz (OON) Discharge Outreach Summary: Pt states eating and drinking well. Has f/u with Dr. Sher 04/16 Completed antibiotic therapy. States anxious to discuss stent placement, what happened with testing at [facility]. Patient discharged from [facility] Discharge date: 03/28/24 Admitted for: Abdominal [...] 08, 2024 2:05 PM documented in this encounterPremier Health [facility]12-[facility]-2024 NotePatient Outreach (AMBCMG) FRAN PAREKH ([id number]) 1945 M Date Time Provider Department 04/08/24 MITCHEL WALTERS [facility] During your visit today, we recorded the following information about you: Mitchel Walters RN 04/08/2024 2:15 PM Signed Transitional Care Management (TCM) Follow-Up Note PCP Update / Actionable Items N/A - No specialty updates needed Patient Source: Mxy-tx-Kosxzzf (OON) Discharge Outreach Summary: Pt states eating and drinking well. Has f/u with Dr. Sher 04/16 Completed antibiotic therapy. States anxious to discuss stent placement, what happened with testing at [facility]. Patient discharged from [facility] Discharge date: 03/28/24 Admitted for: Abdominal [...] hour before dental procedure. - CPAP AutoPAP [id number]. Mask per preference, tubing, filters, humidity. Lif[employer] Supplies. Dx: G47.33. Fax 30 day compliance report to [phone]. - CPAP Please provide mask fitting. 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 Author Type: Nurse Practitioner Type: Progress Notes Filed: 04/01/2024 14:48 Note Text: 04/01/2024 Patient presents with: Hospital F/U: [facility] 03/26-03/28 for pancreatitis SUBJECTIVE: This is a 78 year old that is here today for Above Complaints. HOSPITAL/ER FOLLOW UP: Reason for visit: abdominal pain, nausea, vomiting and dizziness Which facility: [facility] Date of visit: 03/26/2024-03/28/2024 Diagnosis: choledocholithiasis Testing [...] Readmission Risk Score: n/a Patient's zip code: [address] Is zip code within program service area: No Patient meets program referral criteria: No Patient does not qualify for High Risk TCM Home Visit program due to: Patient's zip code is not located within program service area Readmission Risk Score does not meet criteria Disposition: Patient does not qualify for HRTIC, will provide TCM outreach follow-up for 30-days Patient Source: Qto-hs-Niwskox (OON) Discharge Outreach Summary: Pt reports he is feeling well, caught up on sleep last night. States eating and drinking OK . No additional episodes of nausea, vomiting or abdominal pain , fevers, chills since dc. Started Omnicef as rx. Pt reports LVM for f/u with Dr. Nikky DSOUZA and has f/u with PCP office 04/01 Patient discharged from [facility] Discharge date: 03/28/24 Admitted for: Abdominal pain Readmission Risk: n/a Value-Based Contract: ACO Contact: Contact made with patient: Yes Hi, my name is Mitchel Walters RN and I am calling from the [facility] on behalf of your Primary Care Provider, [...] like to speak with a social work sales team leader to help give you support for any [...] I will send your request to a supervisor painting shipyard who will contact and assist you with [...] needed upon discharge. Targets (more content not included)...[facility]12-02-2024 History of Present illness Narrative* Marilia Orozco APRN.VP CUSTOMER SERVICE - 04/01/2024 11:49 AM EST 04/01/2024 Patient presents with: Hospital F/U: [facility] 03/26-03/28 for pancreatitis SUBJECTIVE: This is a 78 year old that is here today for Above Complaints. HOSPITAL/ER FOLLOW UP: Reason for visit: abdominal pain, nausea, vomiting and dizziness Which facility: [facility] Date of visit: 03/26/2024-03/28/2024 Diagnosis: choledocholithiasis Testing [...] Readmission Risk Score: n/a Patient's zip code: [address] Is zip code within program service area: No Patient meets program referral criteria: No Patient does not qualify for High Risk TCM Home Visit program due to: Patient's zip code is not located within program service area Readmission Risk Score does not meet criteria Disposition: Patient does not qualify for HRTIC, will provide TCM outreach follow-up for 30-days Patient Source: Tlo-sa-Wkrvjyv (OON) Discharge Outreach Summary: Pt reports he is feeling well, caught up on sleep last night. States eating and drinking OK . No additional episodes of nausea, vomiting or abdominal pain , fevers, chills since dc. Started Omnicef as rx. Pt reports LVM for f/u with Dr. Nikky DSOUZA and has f/u with PCP office 04/01 Patient discharged from [facility] Discharge date: 03/28/24 Admitted for: Abdominal pain Readmission Risk: n/a Value-Based Contract: ACO Contact: Contact made with patient: Yes Hi, my name is Mitchel Walters RN and I am calling from the [facility] on behalf of your Primary Care Provider, [...] like to speak with a social work sales team leader to help give you support for any [...] I will send your request to a supervisor painting shipyard who will contact and assist you with [...] of skin of nose Dr. Chowdary in [place] Stage 3a chronic kidney disease (HCC) Venous [...] not taking: Reported on 12/19/2023) CPAP AutoPAP [id number]. Mask per preference, tubing, filters, humidity. Lif[employer] Supplies. Dx: G47.33. Fax 30 day compliance report to [phone]. CPAP Please provide mask fitting. Pt with [...] agreeable to treatment plan. documented in this encounterPremier Health [facility]11-29-2024 NoteHNO ID: [id number] Author: MITCHEL WALTERS RN Service: ? Author Type: Registered Nurse Type: Progress Notes Filed: 03/29/2024 10:35 Note Text: Transition Care Management (TCM) Initial Outreach PCP Update / Actionable Items HRTIC TCM Home Visit Referral Source of Stratification: TCM [facility] Hospital Admission Status: Discharged Readmission Risk Score: n/a Patient's zip code: [address] Is zip code within program service area: No Patient meets program referral criteria: No Patient does not qualify for High Risk TCM Home Visit program due to: Patient's zip code is not located within program service area Readmission Risk Score does not meet criteria Disposition: Patient does not qualify for HRTIC, will provide TCM outreach follow-up for 30-days Patient Source: Okt-jy-Ygrcjim (OON) Discharge Outreach Summary: Pt reports he is feeling well, caught up on sleep last night. States eating and drinking OK . No additional episodes of nausea, vomiting or abdominal pain , fevers, chills since dc. Started Omnicef as rx. Pt reports LVM for f/u with Dr. Nikky DSOUZA and has f/u with PCP office 04/01 Patient discharged from [facility] Discharge date: 03/28/24 Admitted for: Abdominal pain Readmission Risk: n/a Value-Based Contract: ACO Contact: Contact made with patient: Yes Hi, my name is Mitchel Walters RN and I am calling from the [facility] on behalf of your Primary Care Provider, [...] like to speak with a social work sales team leader to help give you support for any [...] I will send your request to a supervisor painting shipyard who will contact and assist you with [...] Mitchel Walters RN March 29, 2024 10:22 [facility]11-29-2024 History of Present illness Narrative* Mitchel Walters RN - 03/29/2024 10:17 AM EST Transition Care Management (TCM) Initial Outreach PCP Update / Actionable Items HRTIC TCM Home Visit Referral Source of Stratification: [facility] Hospital Admission Status: Discharged Readmission Risk Score: n/a Patient's zip code: [address] Is zip code within program service area: No Patient meets program referral criteria: No Patient does not qualify for High Risk TCM Home Visit program due to: Patient's zip code is not located within program service area Readmission Risk Score does not meet criteria Disposition: Patient does not qualify for HRTIC, will provide TCM outreach follow-up for 30-days Patient Source: Izx-fn-Jfdflnc (OON) Discharge Outreach Summary: Pt reports he is feeling well, caught up on sleep last night. States eating and drinking OK . No additional episodes of nausea, vomiting or abdominal pain , fevers, chills since dc. Started Omnicef as rx. Pt reports LVM for f/u with Dr. Nikky DSOUZA and has f/u with PCP office 04/01 Patient discharged from [facility] Discharge date: 03/28/24 Admitted for: Abdominal pain Readmission Risk: n/a Value-Based Contract: ACO Contact: Contact made with patient: Yes Hi, my name is Mitchel Walters RN and I am calling from the [facility] on behalf of your Primary Care Provider, [...] like to speak with a social work sales team leader to help give you support for any [...] I will send your request to a supervisor painting shipyard who will contact and assist you with [...] 29, 2024 10:22 AM documented in this encounterPremier Health [facility]11-29-2024 NotePatient Outreach (AMBCMG) FRAN PAREKH ([id number]) 1945 M Date Time Provider Department 03/29/24 MITCHEL WALTERS During your visit today, we recorded the following information about you: Mitchel Walters RN 03/29/2024 10:35 AM Signed Transition Care Management (TCM) Initial Outreach PCP Update / Actionable Items HRTIC TCM Home Visit Referral Source of Stratification: [facility] Hospital Admission Status: Discharged Readmission Risk Score: n/a Patient's zip code: [address] Is zip code within program service area: No Patient meets program referral criteria: No Patient does not qualify for High Risk TCM Home Visit program due to: Patient's zip code is not located within program service area Readmission Risk Score does not meet criteria Disposition: Patient does not qualify for HRTIC, will provide TCM outreach follow-up for 30-days Patient Source: Wnq-wa-Bxlcpnv (OON) Discharge Outreach Summary: Pt reports he is feeling well, caught up on sleep last night. States eating and drinking OK . No additional episodes of nausea, vomiting or abdominal pain , fevers, chills since dc. Started Omnicef as rx. Pt reports LVM for f/u with Dr. Nikky DSOUZA and has f/u with PCP office 04/01 Patient discharged from [facility] Discharge date: 03/28/24 Admitted for: Abdominal pain Readmission Risk: n/a Value-Based Contract: ACO Contact: Contact made with patient: Yes Hi, my name is Mitchel Walters RN and I am calling from the [facility] on behalf of your Primary Care Provider, [...] like to speak with a social work sales team leader to help give you support for any [...] I will send your request to a supervisor painting shipyard who will contact and assist you with [...] Care [4074] Cmt: AMANDA / AMADEO [facility] 03/28/24 Prescriptions as of 03/29/2024 - cefdinir (OMNICEF) 3 (more content not included)...[facility] 03-28-2024 [facility]11-26-2024 Evaluation note* Diagnosis Onset Date Resolution Status Admit Date Choledocholithiasis resolved Novem 2023 6:13am Nausea and vomiting resolved Novem 2023 6:13am 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 inactive March 26, 2 024 6:13am Elevated liver enzymes inactive No vember 2023 6:13am Pancreatic mass inactive March 26, 2024 6:13am Choledocholithiasis acute Decem 2023 7:14am 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, 2024 7:14am Pancreatitis acute March 7:14am 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 8:24am Choledocholithiasis acute July 04, 2024 8:24am [facility] Work Phone: 1(629) 797-991611-18-2024 Telephone encounter Note* Telephone Encounter - Malachi [...] Castillo RN March 18, 2024 8:04 AM [facility]11-18-2024 Miscellaneous Notes* Telephone Encounter - Malachi Castillo [...] 18, 2024 8:04 AM documented in this encounterPremier Health [facility]10-25-2024 History of Present illness Narrative* Karen Wing [...] PATIENT PRESENTS WITH AN IMPLANTABLE OR ATTACHED EMAIL ENGINEER: No RADIOLOGY DEPARTMENT: General X-ray: Exam(s) Completed: Spine X-Ray(s): Cervical AP / LAT Upper Extremity X-Ray(s): Shoulder, AP / TRUE AP left PERIPHERAL IV DATA: Not applicable SIGNED BY: RT Robby(Tarah) February 23, 2024 10:15 AM documented in this encounterPremier Health [facility]10-25-2024 NoteHNO ID: [id number] Author: KAREN WING RT(R) Service: Radiology Author [...] PATIENT PRESENTS WITH AN IMPLANTABLE OR ATTACHED EMAIL ENGINEER: No RADIOLOGY DEPARTMENT: General X-ray: Exam(s) Completed: Spine X-Ray(s): Cervical AP / LAT Upper Extremity X-Ray(s): Shoulder, AP / TRUE AP left PERIPHERAL IV DATA: Not applicable SIGNED BY: RT Robby(Tarah) February 23, 2024 10:15 [facility]10-23-2024 Telephone encounter Note* Telephone Encounter - [...] Bowen RN February 21, 2024 8:32 AM [facility]10-23-2024 Miscellaneous Notes* Telephone Encounter - Carli Bowen [...] 21, 2024 8:32 AM documented in this encounterPremier Health [facility]10-16-2024 NoteHNO ID: [id number] Author: MARILIA OROZCO APRN.VP CUSTOMER SERVICE Service: ? Author Type: Nurse Practitioner Type: [...] flexion ALLEVIATING FEATURES: tylenol Hurt it playing [employer] years ago. Denies past surgeries,extremity numbness, tingling, [...] of skin of nose Dr. Chowdary in [place] Stage 3a chronic kidney disease (HCC) Venous [...] not taking: Reported on 12/19/2023) CPAP AutoPAP [id number]. Mask per preference, tubing, filters, humidity. Lifetime Supplies. Dx: G47.33. Fax 30 day compliance report to [phone]. CPAP Please provide mask fitting. Pt with [...] Depression Screening Never done (more content not included)...[facility]10-16-2024 History of Present illness Narrative* Podlogar, [...] flexion ALLEVIATING FEATURES: tylenol Hurt it playing [employer] years ago. Denies past surgeries,extremity numbness, tingling, [...] of skin of nose Dr. Chowdary in [place] Stage 3a chronic kidney disease (HCC) Venous [...] not taking: Reported on 12/19/2023) CPAP AutoPAP [id number]. Mask per preference, tubing, filters, humidity. Lifetime Supplies. Dx: G47.33. Fax 30 day compliance report to [phone]. CPAP Please provide mask fitting. Pt with [...] due - ICD9: V05.9, ICD10: Z23 - [employer] COVID-19 VACCINE AGE 12+ YR (COMIRNATY) - INFLUENZA VACCINE, PRSV FREE, AGE 65+ YR, HIGH DOSE, TRIVALENT (FLUZONE HIGH-DOSE) - RSV PRINTED PHARMACY INSTRUCTIONS 3. Right leg swelling - ICD9: 729.81, ICD10: M79.89 - DVT already ruled out - possibly lymph edema or related to knee injury - recommend compression hose and elevation - declined referral to vascular Marilia PylelogSELENE stuart.VP CUSTOMER SERVICE Prescription instructions reviewed with patient as applicable. [...] Level: 4 - Moderate documented in this encounterPremier Health [facility]10-10-2024 Telephone encounter Note * Telephone Encounter - Sissy Abbott LPN - 02/08/2024 9:58 AM EDT Pt calling for an appt to hillary right lower leg cellulitis. Pt states area has improved, only has slight redness & he would like it recked. Pt reports pain is gone. Pt requesting appt with Binder Roller Podlogar. 1st avial with her is 02/14/24, pt accepted appt. Sooner appt offered with a different provider, pt declined. Pt instructed if area on leg starts to get worse, more red, painful etc to call for a sooner appt, pt voiced understanding. Pt also requesting flu & covid vaccine at same appt. Sissy Abbott LPN [facility]10-10-2024 Miscellaneous Notes* Telephone Encounter - Sissy Abbott LPN - 02/08/2024 9:58 AM EDT Pt calling for an appt to hillary right lower leg cellulitis. Pt states area has improved, only has slight redness & he would like it recked. Pt reports pain is gone. Pt requesting appt with B[employer] Roller Podlognarciso. 1st avial with her is 02/14/24, pt accepted appt. Sooner appt offered with a different provider, pt declined. Pt instructed if area on leg starts to get worse, more red, painful etc to call for a sooner appt, pt voiced understanding. Pt also requesting flu & covid vaccine at same appt. Sissy Abbott LPN documented in this encounterPremier Health [facility]09-30-2024 NoteHNO ID: [id number] Author: MARILIA OROZCO APRN.VP CUSTOMER SERVICE Service: ? 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 PROMINENT PREPATELLAR BURSITIS. MILD OSTEOARTHRITIS. Storage Worker: WILNER Transcribe Date/Time: Jan 26 2024 1:16P [...] of skin of nose Dr. Chowdary in [place] Stage 3a chronic kidney disease (HCC) Venous [...] for 6 days. 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 PROMINENT PREPATELLAR BURSITIS. MILD OSTEOARTHRITIS. Storage Worker: WILNER Transcribe Date/Time: Jan 26 2024 1:16P [...] of skin of nose Dr. Chowdary in [place] Stage 3a chronic kidney disease (HCC) Venous [...] not taking: Reported on 12/19/2023) CPAP AutoPAP [id number]. Mask per preference, tubing, filters, humidity. Lifetime Supplies. Dx: G47.33. Fax 30 day compliance report to [phone]. CPAP Please provide mask fitting. Pt with [...] ER with red flag symptoms Marilia Orozco APRN.VP CUSTOMER SERVICE Prescription instructions reviewed with patient as applicable. [...] Level: 4 - Moderate documented in this encounterPremier Health [facility]09-27-2024 History of Present illness Narrative* Angi Hawkins, operational trainer - 01/26/2024 11:30 AM EDT Radiology Service [...] PATIENT PRESENTS WITH AN IMPLANTABLE OR ATTACHED EMAIL ENGINEER: No RADIOLOGY DEPARTMENT: MR; Exam(s) Completed: Lower MSK: Knee, right PERIPHERAL IV DATA: Not applicable SIGNED BY: DEEPALI Page January 26, 2024 11:39 AM documented in this encounterPremier Health [facility] Hospital [place]2024 NoteHNO ID: [id number] Author: ANGI HAWKINS MRI Tech Service: Radiology [...] PATIENT PRESENTS WITH AN IMPLANTABLE OR ATTACHED EMAIL ENGINEER: No RADIOLOGY DEPARTMENT: MR; Exam(s) Completed: Lower MSK: Knee, right PERIPHERAL IV DATA: Not applicable SIGNED BY: DEEPALI Page January 26, 2024 11:39 [facility]09-25-2024 NoteHNO ID: [id number] Author: MARILIA OROZCO APRN.VP CUSTOMER SERVICE Service: ? Author Type: Nurse Practitioner Type: [...] of skin of nose Dr. Chowdary in [place] Stage 3a chronic kidney disease (HCC) Venous [...] not taking: Reported on 12/19/2023) CPAP AutoPAP [id number]. Mask per preference, tubing, filters, humidity. Lifetime Supplies. Dx: G47.33. Fax 30 day compliance report to [phone]. CPAP Please provide mask fitting. Pt with [...] anterior/posterior drawer test. Signi (more content not included)...[facility]09-25-2024 History of Present illness Narrative* Podlogar, SELENE Capellan.VP CUSTOMER SERVICE - 01/24/2024 12:05 PM EDT 01/24/2024 Patient [...] of skin of nose Dr. Chowdary in [place] Stage 3a chronic kidney disease (HCC) Venous [...] not taking: Reported on 12/19/2023) CPAP AutoPAP [id number]. Mask per preference, tubing, filters, humidity. Lifetime Supplies. Dx: G47.33. Fax 30 day compliance report to [phone]. CPAP Please provide mask fitting. Pt with [...] MRI KNEE WO IVCON RIGHT Marilia Podlogar, SENIOR COMMUNICATIONS ENGINEER.VP CUSTOMER SERVICE Prescription instructions reviewed with patient as applicable. [...] Level: 4 - Moderate documented in this encounterPremier [facility]09-[facility]24 Telephone encounter Note * Telephone Encounter - Eunice Bruce LPN - 01/22/2024 1:30 PM EDT Patient telephoned and notified. Eunice Bruce LPN [facility]09-23-2024 Miscellaneous Notes* Telephone Encounter - Eunice Bruce LPN - 01/22/2024 1:30 PM EDT Patient telephoned and notified. Eunice Bruce LPN * Telephone Encounter - Cassidy Cantu MA - 01/22/2024 10:27 AM EDT ----- Message from Agnes Diaz MD sent at 01/22/2024 8:34 AM EDT ----- US negative for superficial or deep clot. documented in this encounterPremier Health Miami [facility]09-23-2024 NoteHNO ID: [id number] Author: AGNES DIAZ MD Service: ? Author [...] of skin of nose Dr. Chowdary in [place] Stage 3a chronic kidney disease (HCC) Venous insufficiency Previous Surgical History PAST SURGICAL HISTORY Procedure Laterality Date ARTHRP ACETBLR/PROX FEM PROSTC AGRFT/ALGRFT Right 06/03/2019 Hip replacement, total COLONOSCOPY FLX DX W/COLLJ SPEC WHEN PFRMD 04/21/11 Repeat 10 [id number] LASER GREENLIGHT prostate, [place] NEUROPLASTY AND/TRANSPOS MEDIAN [...] AN EMPTY STOMACH FOR THYROID CPAP AutoPAP [id number]. Mask per preference, tubing, filters, humidity. Lifetime Supplies. Dx: G47.33. Fax 30 day compliance report to [phone]. CPAP Please provide mask fitting. Pt with [...] 10 mL (BD POSIFLUSH) (more content not included)...[facility]09-23-2024 History of Present illness Narrative* Agnes [...] of skin of nose Dr. Chowdary in [place] Stage 3a chronic kidney disease (HCC) Venous [...] AN EMPTY STOMACH FOR THYROID CPAP AutoPAP [id number]. Mask per preference, tubing, filters, humidity. Lifetime Supplies. Dx: G47.33. Fax 30 day compliance report to [phone]. CPAP Please provide mask fitting. Pt with [...] Abs Lymph 1.00 - 4.00 k/uL 2.23 Brooks% % 10.0 Abs Brooks <0.87 k/uL 1.03 (H) Eosin% % 1.9 [...] TABLET Agnes Diaz MD documented in [place] encounterHannah [place] [address]-23-2024 Telephone encounter Note * Telephone Encounter - Cassidy Cantu MA - 01/22/2024 10:27 AM EDT ----- Message from Agnes Diaz MD sent at 01/22/2024 8:34 AM EDT ----- US negative for superficial or deep clot. [facility]09-20-2024 NoteHNO ID: [id number] Author: AMRILIA OROZCO APRN.VP CUSTOMER SERVICE Service: ? Author Type: Nurse Practitioner Type: [...] ice RADIATION: knee down to landry Saw production intern yesterday who ordered an xray which has [...] of skin of nose Dr. Chowdary in [place] Stage 3a chronic kidney disease (HCC) Venous [...] not taking: Reported on 12/19/2023) CPAP AutoPAP [id number]. Mask per preference, tubing, filters, humidity. Lifetime Supplies. Dx: G47.33. Fax 30 day compliance report to [phone]. CPAP Please provide mask fitting. Pt with [...] on 10/29/2024 BP Controlled (more content not included)...[facility]09-20-2024 History of Present illness Narrative* PodlogarMarilia APRN.VP CUSTOMER SERVICE - 01/19/2024 9:41 AM EDT 01/19/2024 Patient [...] ice RADIATION: knee down to landry Saw production intern yesterday who ordered an xray which has [...] of skin of nose Dr. Chowdary in [place] Stage 3a chronic kidney disease (HCC) Venous [...] not taking: Reported on 12/19/2023) CPAP AutoPAP [id number]. Mask per preference, tubing, filters, humidity. Lifetime Supplies. Dx: G47.33. Fax 30 day compliance report to [phone]. CPAP Please provide mask fitting. Pt with [...] comparison to left. Erythema and warmth over landyr. Faint ecchymosis laterally inferior to knee. Able [...] ER with red flag symptoms Marilia Orozco APRN.VP CUSTOMER SERVICE Prescription instructions reviewed with patient as applicable. Patient advised if symptoms do not improve or if symptoms worsen sooner, to contact their primary care physician. Potential red flag symptoms discussed with the patient. Reviewed appropriate action plan to take if red flag symptoms occur. Patient agreeable to treatment plan. documented in this encounterPremier Health [facility]09-19-2024 History of Present illness Narrative* Karen Wing [...] PATIENT PRESENTS WITH AN IMPLANTABLE OR ATTACHED EMAIL ENGINEER: No RADIOLOGY DEPARTMENT: General X-ray: Exam(s) Completed: Lower Extremity X- Ray(s): Knee, AP / Lat / Tunne / Merchant Right and Wt. Bearing PERIPHERAL IV DATA: Not applicable SIGNED BY: KAYY Bustamante) January 18, 2024 12:17 PM documented in this encounterPremier Health [facility]09-19-2024 NoteHNO ID: [id number] Author: WING, KAREN, RT(R) Service: Radiology Author [...] PATIENT PRESENTS WITH AN IMPLANTABLE OR ATTACHED EMAIL ENGINEER: No RADIOLOGY DEPARTMENT: General X-ray: Exam(s) Completed: Lower Extremity X-Ray(s): Knee, AP / Lat / Tunne / Merchant Right and Wt. Bearing PERIPHERAL IV DATA: Not applicable SIGNED BY: RT Robby(R) January 18, 2024 12:17 [facility]09-19-2024 NoteHNO ID: [id number] Author: JOLEEN MUNOZ APRN.RUBÉN Service: ? Author [...] will be corrected patient was not seen here.[facility]09-19-2024 History of Present illness Narrative* Joleen Munzo APRN.RUBÉN - 01/18/2024 12:12 PM EDT Patient is seen by his physician. The physician already placed orders for x-ray and orthopedics consult. Confusion at the desk patient accidentally got checked in for a full visit. Patient is not here for full visit. Patient is just here for his x-ray. This will be corrected patient was not seen here. documented in this encounterPremier Health [facility]09-19-2024 NoteHNO ID: [id number] Author: VICTOR MANUEL SAVAGE, DO Service: ? [...] STOMACH FOR THYROIDDisp: 90 tabletRfl: 3 CPAPAutoPAP [id number]. Mask per preference, tubing, filters, humidity. Lifetime Supplies. Dx: G47.33. Fax 30 day compliance report to [phone].Disp: 1 EachRfl: 999 CPAPPlease provide mask fitting. [...] of skin of nose Dr. Chowdary in [place] Stage 3a chronic kidney disease (HCC) Venous insufficiency PAST SURGICAL HISTORY Procedure Laterality Date ARTHRP ACETBLR/PROX FEM PROSTC AGRFT/ALGRFT Right 06/03/2019 Hip replacement, total COLONOSCOPY FLX DX W/COLLJ SPEC WHEN PFRMD 04/21/11 Repeat 10 [id number] LASER GREENLIGHT prostate, [place] NEUROPLASTY AND/TRANSPOS MEDIAN [...] (Myocardial infarction) Maternal Grandfather (more content not included)...[id number] History of Present illness Narrative* Victor Manuel [...] STOMACH FOR THYROID^Disp: 90 tablet^Rfl: 3 CPAP^AutoPAP [id number]. Mask per preference, tubing, filters, humidity. Lifetime Supplies. Dx: G47.33. Fax 30 day compliance report to [phone].^Disp: 1 Each^Rfl: 999 CPAP^Please provide mask fitting. [...] of skin of nose Dr. Chowdary in [place] Stage 3a chronic kidney disease (HCC) Venous insufficiency PAST SURGICAL HISTORY Procedure Laterality Date ARTHRP ACETBLR/PROX FEM PROSTC AGRFT/ALGRFT Right 06/03/2019 Hip replacement, total COLONOSCOPY FLX DX W/COLLJ SPEC WHEN PFRMD 04/21/11 Repeat 10 [id number] LASER GREENLIGHT prostate, [place] NEUROPLASTY &/TRANSPOS MEDIAN [...] uU/mL HIV No results found for: HIVSCN, [id number]] Hepatitis B Surface Antigen No results found [...] DATE of SERVICE: 01/18/2024 documented in this encounterPremier Health [facility]09-18-2024 NoteHNO ID: [id number] Author: YOGESH FORMAN PT Service: ? Author [...] fall risk. - Partially MET, will continue Rochert in home exercise program including cardiovascular exercise. [...] Patient to be seen for Therapeutic exercise (16634), Neuromuscular re-education (72310), Therapeutic activities (08284), Self-long-term management (75317), Gait Training (60002), Patient/Family/Caregiver Education, Body Mechanics Training, General Conditioning [...] Patient was educate (more content not included)... [facility]09-18-2024 History of Present illness Narrative* Yogesh [...] fall risk. - Partially MET, will continue Rochert in home exercise program including cardiovascular exercise. [...] Patient to be seen for Therapeutic exercise (38809), Neuromuscular re-education (17896), Therapeutic activities (00011), Self-long-term management (37422), Gait Training (39223), Patient/Family/Caregiver Education, Body Mechanics Training, General Conditioning [...] (sec): 0 sec TREATMENT: Therapeutic Exercise: 1: ReflexFit StepOne seat #16 resistance level 0 x6 [...] 1600 Yogesh Forman PT documented in this encounterPremier Health [facility]09-16-2024 History of Present illness Narrative* CHRISSY DeD ios - 01/15/2024 11:00 AM EDT Subjective Fran [...] -Reassurance, recommend continued observation documented in this encounterOhio[facility] Work Phone: [phone]) 844-704809-12-2024 Telephone encounter Note* Telephone Encounter - Michelle Stroud PSS - 01/11/2024 3:43 PM EDT CD READY FOR FLAT SURFACER AT [facility] RADIOLOGY for pt [facility]09-12-2024 Miscellaneous Notes* Telephone Encounter - Michelle Stroud PSS - 01/11/2024 3:43 PM EDT CD READY FOR FLAT SURFACER AT [facility] for pt * Telephone Encounter - [...] request. Harriet Grider RN documented in this encounterPremier Health [facility]09-11-2024 Telephone encounter Note * Telephone Encounter - Ju Cedillo RN - 01/10/2024 1:[address] Samuel has never seen this patient. Perhaps it should go to radiology or the person who ordered it? [facility]09-11-2024 Telephone encounter Note* Telephone Encounter - Harriet Grider RN - 01/10/2024 11:47 AM EDT Patient calling and requesting a disc for his 05/15/23 Lumbar XRAY. He is interested in getting a disc to mil Painting surgeon. Informed pt that a message would be sent to Radiology for this request. Please call patient with an update regarding this request. Harriet Grider RN [facility]09-11-2024 NoteHNO ID: [id number] Author: YOGESH FORMAN PT Service: ? Author [...] LEVEL OF FUNCTION: TREATMENT: Therapeutic Exercise: 1: [place] StepOne seat #16 resistance level 0 x6 [...] Session Stop Time : 1046 Yogesh Forman [facility]09-11-2024 History of Present illness Narrative* Yogesh Forman, [...] THERAPY PHYSICAL THERAPY TREATMENT NOTE ASSESSMENT: Fran Praekh tolerated the session with fatigue and no [...] 1046 Yogesh Forman PT documented in this encounterPremier Health [facility]09-09-2024 Telephone encounter Note * Telephone Encounter - [...] Owen MA January 08, 2024 10:21 AM [facility]09-09-2024 Miscellaneous Notes* Telephone Encounter - Amara Owen [...] Thank you. Sheyla Schneider. documented in this encounterPremier Health [facility]09-09-2024 NoteHNO ID: [id number] Author: SHERRELL JACKSON PT Service: ? Author [...] with balance exercises. TREATMENT: Therapeutic Exercise: 1: ReflexFit StepOne seat #16 resistance level 0 x6 [...] patient safety with use of gait belt. Self-Assisted Management: 1: Discussed putting night lights along [...] Session Stop Time : 101 Tabby Umanaanjelica, PURCHASING MANAGER/SALES Sherrell Jackson, [facility]09-09-2024 History of Present illness Narrative* Sherrell Jackson, [...] with balance exercises. TREATMENT: Therapeutic Exercise: 1: ReflexFit StepOne seat #16 resistance level 0 x6 [...] patient safety with use of gait belt. Self-Assisted Management: 1: Discussed putting night lights along [...] 1019 RUBENS Allred PT documented in this encounterPremier Health [facility]09-07-2024 Telephone encounter Note * Telephone Encounter - [...] found Please advise. Thank you. Sheyla Schneider. [facility]09-05-2024 NoteHNO ID: [id number] Author: YOGESH FORMAN PT Service: ? Author [...] improved ground clearance. TREATMENT: Therapeutic Exercise: 1: ReflexFit StepOne seat #16 resistance level 0 x6 [...] Session Stop Time : 1627 Yogesh Forman [facility]09-05-2024 History of Present illness Narrative* Yogesh Forman [...] improved ground clearance. TREATMENT: Therapeutic Exercise: 1: ReflexFit StepOne seat #16 resistance level 0 x6 [...] 1627 Yogesh Forman PT documented in this encounterPremier Health [facility]08-20-2024 History of Present illness Narrative* Sidra Gómez MD - 12/19/2023 2:30 PM EDT Images from the original note were not included. [facility] Department of Cardiovascular Medicine SECTION [...] 85 , intermediate risk) and acute right Rse-Doa-tcay DVT (10/23/2023) treated with medical management, and pulmonary hypertension. He was discharged on Eliquis, which currently takes. Patient follows with pulmonology (Victor Manuel Savage DO) for pulmonary hypertension.Last visit 11/09/2023; recommended VQ scan and repeat echocardiogram. Prior to the diagnosis patient reported no hospitalizations, surgeries, long travels, immobilization or trauma. Patient's reports patient had swelling in both legs during his travel to [place] in May 2023. He had no chest discomfort or SOB. Patient adds he has had swelling in the legs ever since hip surgery in 2019. He underwent venous incompetency study in 12/2020 and found reflux in both GSV. He was recommended to wear compression stockings. Referred to vascular medicine for consideration of hypercoagulable workup History of thrombosis: as above, otherwise, History of CVA/TIA/OH: no Current or prior use of hormonal [...] before dental procedure.^Disp: 4 capsule^Rfl: 3 CPAP^AutoPAP [id number]. Mask per preference, tubing, filters, humidity. Lifetime Supplies. Dx: G47.33. Fax 30 day compliance report to [phone].^Disp: 1 Each^Rfl: 999 CPAP^Please provide mask fitting. [...] heart failure (HCC), Depression,Diabetes (HCC), Epilepsy (HCC), director long term care (current) use of systemic steroids, Stroke (HCC), [...] High Legend: (H) High (L) Low Impression/Recommendations: (Z86.958) History of venous thromboembolism (primary encounter diagnosis) (Z79.01) Current use of alf 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 (Z68.38) BMI 38.0-38.9,adult (I27.29) Other secondary [...] 85 , intermediate risk) and acute right Art-Odo-lgmn DVT (10/23/2023), treated medically and discharged on [...] Victor Manuel Singh DO documented in this encounterPremier Health [facility]08-20-2024 NoteHNO ID: [id number] Author: SIDRA GÓMEZ MD Service: ? Author Type: Physician Type: Progress Notes Filed: 12/19/2023 16:30 Note Text: [facility] Department of Cardiovascular Medicine SECTION [...] 85 , intermediate risk) and acute right Kos-Mvj-qynm DVT (10/23/2023) treated with medical management, and pulmonary hypertension. He was discharged on Eliquis, which currently takes. Patient follows with pulmonology (Victor Manuel Savage DO) for pulmonary hypertension.Last visit 11/09/2023; recommended VQ scan and repeat echocardiogram. Prior to the diagnosis patient reported no hospitalizations, surgeries, long travels, immobilization or trauma. Patient's reports patient had swelling in both legs during his travel to [place] in May 2023. He had no chest discomfort or SOB. Patient adds he has had swelling in the legs ever since hip surgery in 2019. He underwent venous incompetency study in 12/2020 and found reflux in both GSV. He was recommended to wear compression stockings. Referred to vascular medicine for consideration of hypercoagulable workup History of thrombosis: as above, otherwise, History of CVA/TIA/OH: no Current or prior use of hormonal [...] before dental procedure.Disp: 4 capsuleRfl: 3 CPAPAutoPAP [id number]. Mask per preference, tubing, filters, humidity. Lifetime Supplies. Dx: G47.33. Fax 30 day compliance report to [phone].Disp: 1 EachRfl: 999 CPAPPlease provide mask fitting. 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 Author [...] second SLS to reflect decreased fall risk. Rochert in home exercise program including cardiovascular exercise. [...] Planned: 16 Planned Treatment Interventions: Therapeutic exercise (60303), Neuromuscular re-education (72877), Therapeutic activities (23010), Self-long-term management (27518), Gait Training (18874), Patient/Family/Caregiver Education, Body Mechanics Training, Functional training, [...] in his lungs. He was admitted to [facility] for 6 days and when discharged, PT was ordered for his unsteady gait. Pt denies any falls. Patient Goals: reconditioning to regain prior functional level. 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 Rochert in home exercise program including cardiovascular exercise. [...] Planned: 16 Planned Treatment Interventions: Therapeutic exercise (97995), Neuromuscular re- education (00075), Therapeutic activities (66673), Self-long-term management (83967), Gait Training (19343), Patient/Family/Caregiver Education, Body Mechanics Training, Functional training, [...] identified in hislungs. He was admitted to [facility] for 6 days and when discharged, PT was ordered for his unsteady gait. Pt denies any falls. Patient Goals: reconditioning to regain prior functional level. 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 [facility]07-29-2024 Miscellaneous Notes* Telephone Encounter - Halie Perez LPN - 11/27/2023 11:10 AM EDT Patient appt was moved to a sooner date. * Telephone Encounter - Halie Perez LPN - 11/27/2023 10:11 AM EDT Message forwarded to the [facility] clerical pool for assistance with scheduling. * Telephone Encounter - Anitra Fong - 11/27/2023 9:59 AM EDT Patient called and stated that his production intern wants him to be seen CASSY and asked if Dr. Pepe can see him sooner than March. Please advise documented in this encounterPremier Health [facility]07-29-2024 Telephone encounter Note * Telephone Encounter - Halie Perez LPN - 11/27/2023 10:11 AM EDT Message forwarded to the [facility] clerical pool for assistance with scheduling. [facility]07-29-2024 Telephone encounter Note* Telephone Encounter - Anitra Fong - 11/27/2023 9:59 AM EDT Patient called and stated that his production intern wants him to be seen CASSY and asked if Dr. Pepe can see him sooner than March. Please advise [place] [address]-24-2024 History of Present illness Narrative* Nadeem Barron, [...] PATIENT PRESENTS WITH AN IMPLANTABLE OR ATTACHED EMAIL ENGINEER: No CREATININE: Creatinine Date Value Ref Range [...] 1332/1355 PATIENT DISCHARGED TO: Ambulatory patient, left NH department area. A Diagnostic radioactive procedure has taken place, with no further precautions necessary other than routine body substance precautions. More information regarding radiation safety can be found usingthis link: [email or web address] 20Diagnostic%20Nuclear%20Medicine%[email or web address] SIGNATURE: KAYY Mccartney) PATIENT NAME: Fran Parekh DATE: November 22, 2023 TIME: 2:00 PM PAGER/CONTACT #: documented in this encounterPremier Health [facility]07-24-2024 NoteHNO ID: [id number] Author: NADEEM BARRON RT (R) Service: ? [...] PATIENT PRESENTS WITH AN IMPLANTABLE OR ATTACHED EMAIL ENGINEER: No CREATININE: Creatinine Date Value Ref Range [...] 1332/1355 PATIENT DISCHARGED TO: Ambulatory patient, left NH department area. A Diagnostic radioactive procedure has taken place, with no further precautions necessary other than routine body substance precautions. More information regarding radiation safety can be found using this link: [email or web address] 20Diagnostic%20Nuclear%20Medicine%[email or web address] SIGNATURE: RT Bib(R) PATIENT NAME: Fran Parekh DATE: November 22, 2023 TIME: 2:00 PM [phone] Telephone encounter Note* Telephone Encounter - Piedad Ryan MA - 11/22/2023 8:47 AM EDT Pt requesting refill on eliquis [place]onson 11/09/23 Piedad Ryan MA [facility]07-24-2024 Miscellaneous Notes* Telephone Encounter - Piedad Ryan MA - 11/22/2023 8:47 AM EDT Pt requesting refill on eliquis Bronson 11/09/23 Piedad Ryan MA documented in this encounterPremier Health [facility]07-12-2024 Telephone encounter Note * Telephone Encounter - Sissy Campbell LPN - 11/10/2023 9:48 AM EDT Phoned patient and advised paperwork faxed. Originals mailed to patient and copies forwarded to [employer]. Sissy Campbell LPN [facility]07-12-2024 Miscellaneous Notes* Telephone Encounter - Sissy Campbell LPN - 11/10/2023 9:48 AM EDT Phoned patient and advised paperwork faxed. Originals mailed to patient and copies forwarded to [employer]. Sissy Campbell LPN * Telephone Encounter - Agnes Diaz MD - 11/10/2023 8:37 AM EDT Completed and placed in outbox. * Telephone Encounter - Ree Ram LPN - 11/10/2023 8:14 AM EDT Patient calling said needs done CASSY please or his will have to go to [place] to work. . * Telephone Encounter - Agustín Monroy RN - 11/06/2023 10:36 AM EDT Patient calls with fax number to [facility], [facility]. Fax number is [phone]. Agustín Monroy RN * Telephone Encounter - [...] Dr. Carin Campbell LPN documented in this encounterPrem[facility] Telephone encounter Note * Telephone Encounter - Agnes Diaz MD - 11/10/2023 8:37 AM EDT Completed and placed in outbox. [facility]07-12-2024 Telephone encounter Note* Telephone Encounter - Ree Ram LPN - 11/10/2023 8:14 AM EDT Patient calling said needs done CASSY please or his will have to go to [place] to work. . [facility]07-11-2024 NoteHNO ID: [id number] Author: VICTOR MANUEL SAVAGE, DO Service: ? Author Type: Physician Type: Progress Notes Filed: 11/09/2023 14:23 Note Text: [facility] STAFF PHYSICIAN NOTE OF PERSONAL INVOLVEMENT IN [...] Savage DO [facility] DATE of SERVICE: 11/09/2023[facility] HospitalLbaclsmh03-68-7179 History of Present illness Narrative* Victor Manuel Savage DO - 11/09/2023 2:17 PM EDT [facility] STAFF PHYSICIAN NOTE OF PERSONAL INVOLVEMENT IN [...] exertion for the prior week or so. [place] acute shortness of breath and severe lightheadedness [...] of skin of nose Dr. Chowdary in [place] Stage 3a chronic kidney disease (HCC) Venous insufficiency HTN DM Type 2 Pulmonary Embolism/DVT Lung Nodules Social History Leads sedentary lifestyle getting up from chair to go to the restroom, eat, etc. Swam recreationally until about a year ago. He denies surgery in the last 3 months, trauma, immobilization, travel, family history of clotting disorder. Does fly to [place] about 3 times/year, last trip around [place]. Never smoked, IV, drugs, or alcohol. Family [...] lung cancer in his father. 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 [...] exertion for the prior week or so. [place] acute shortness of breath and severe lightheadedness [...] of skin of nose Dr. Chowdary in [place] Stage 3a chronic kidney disease (HCC) Venous insufficiency HTN DM Type 2 Pulmonary Embolism/DVT Lung Nodules Social History Leads sedentary lifestyle getting up from chair to go to the restroom, eat, etc. Swam recreationally until about a year ago. He denies surgery in the last 3 months, trauma, immobilization, travel, family history of clotting disorder. Does fly to [place] about 3 times/year, last trip around [place]. Never smoked, IV, drugs, or alcohol. Family [...] lung cancer in his father. 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 Fax number is [phone]. Agustín Monroy RN [facility]07-08-2024 NoteHNO ID: [id number] Author: LEONILA TRIANA RN Service: ? Author [...] Status: In-Network Discharge Summary: Pt discharged from [facility] on 10/27/23. Admitted for: complaint of SOB and dizziness and was found to have saddle PE and right LE DVT Concerns: see above Camp Assistant plan for next outreach: Will follow up weekly for 30 days post discharge ANTONIO Education Ordered -: No antonio previously placed for patient prior to this encounter Leonila Triana RN November 06, 2023 10:24 [facility]07-08-2024 History of Present illness Narrative* Leonila [...] Status: In-Network Discharge Summary: Pt discharged from [facility] on 10/27/23. Admitted for: complaint of SOB and dizziness and was found to have saddle PE and right LE DVT Concerns: see above Camp Assistant plan for next outreach: Will follow up weekly for 30 days post discharge ANTONIO Education Ordered -: No antonio previously placed for patient prior to this encounter Leonila Triana RN November 06, 2023 10:24 AM documented in this encounterPrem[facility]07-08-2024 Telephone encounter Note * Telephone Encounter - Agnes Diaz MD - 11/06/2023 9:50 AM EDT Will review and call when completed. [facility]07-08-2024 Telephone encounter Note* Telephone Encounter - Sissy [...] to Physician Desk: Dr. Carin Campbell LPN [facility]07-08-2024 NotePatient Outreach ([facility]) FRAN PAREKH ([id number]) 1945 M Date Time Provider Department 11/06/23 [...] Status: In-Network Discharge Summary: Pt discharged from [place] on 10/27/23. Admitted for: complaint of SOB and dizziness and was found to have saddle PE and right LE DVT Concerns: see above Camp Assistant plan for next outreach: Will follow up [...] hour before dental procedure. - CPAP AutoPAP [id number]. Mask per preference, tubing, filters, humidity. [employer]. Dx: G47.33. Fax 30 day compliance report to [phone]. - CPAP Please provide mask fitting. Pt [...] 03/25/2009 Open fracture of distal phalangeal tuft [PVG460*08/31/2011 05/09/2014 Internal derangement of right knee [M23.91] [...] (peripheral) [I8*04/29/2020 Cervical radi (more content not included)...[facility]07-03-2024 Telephone encounter Note* Telephone Encounter - Malachi Castillo RN - 11/01/2023 2:34 PM EDT Notified Polina of PT order. [facility]07-03-2024 Miscellaneous Notes* Telephone Encounter - Malachi Castillo RN - 11/01/2023 2:34 PM EDT Notified Polina of PT order. * Telephone Encounter - Agnes Diaz MD - 11/01/2023 12:57 PM EDT Referral order to PT for unsteady gait placed as requested. * Telephone Encounter - Carli Bowen RN - 11/01/2023 12:48 PM EDT Polina BONILLAwater use inspector calls and reports that she went out to see patient today. Patient does not need home health services of nursing and PT. Patient is not home bound and is planning to go back to work. Polina asking if provider can write order for outpatient physical therapy? Please review and advise, Carli Bowen RN documented in this encounterPremier Health [facility]07-03-2024 Telephone encounter Note * Telephone Encounter - Agnes Diaz MD - 11/01/2023 12:57 PM EDT Referral order to PT for unsteady gait placed as requested. [facility]07-03-2024 Telephone encounter Note* Telephone Encounter - Carli Bowen RN - 11/01/2023 12:48 PM EDT Polina BONILLAwater use inspector calls and reports that she went out to see patient today. Patient does not need home health services of nursing and PT. Patient is not home bound and is planning to go back to work. Polina asking if provider can write order for outpatient physical therapy? Please review and advise, Carli Bowen RN [facility]07-02-2024 Telephone encounter Note* Telephone Encounter - Carmela Trevizo OCCA - 10/31/2023 8:36 AM EDT LIU Murcia who is informed of below. ADAN Stewart [facility]07-02-2024 Miscellaneous Notes* Telephone Encounter - Carmela Trevizo [...] follow and sign for home careorders for Fdc and PT. DX hypertension. Pt was d/c from [facility] on 10-27-23. Please advise Divina. Leonila Winslow LPN documented in this encounterPremier Health [facility]07-02-2024 Telephone encounter Note * Telephone Encounter - Agnes Diaz MD - 10/31/2023 8:20 AM EDT Yes, will sign and follow. [facility]07-02-2024 Telephone encounter Note* Telephone Encounter - Leonila Winslow LPN - 10/31/2023 8:13 AM EDT Divina with [facility] calling to see if you will follow and sign for home careorders for Fdc and PT. DX hypertension. Pt was d/c from [facility] on 10-27-23. Please advise Divina. Leonila Winslow LPN [facility]07-01-2024 NoteHNO ID: [id number] Author: LEONILA TRIANA, CHAD Service: ? Author [...] then after patient has not heard from [facility] - states he will call tomorrow afternoon if no contact first SUMMARY: Discharge Network Status: In-Network Discharge Pt discharged from [place] on 10/27/23. Admitted for: complaint of SOB and dizziness and was found to have saddle PE and right LE DVT Contact made with patient: Yes Hi my name is Leonila Triana RN and I am calling from the [facility] on behalf of your PCP, Agnes Diaz [...] like to speak with a social work sales team leader to help give you support for any [...] I will send your request to a supervisor painting shipyard who will contact and assist you with [...] Leonila Triana RN October 30, 2023 4:12 [facility]07-01-2024 History of Present illness Narrative* Leonila [...] then after patient has not heard from [facility] - states he will call tomorrow afternoon if no contact first SUMMARY: Discharge Network Status: In-Network Discharge Pt discharged from [facility] on 10[facility]23. Admitted for: complaint of SOB and dizziness and was found to have saddle PE and right LE DVT Contact made with patient: Yes Hi my name is Leonila Triana RN and I am calling from the [facility] on behalf of your PCP, Agnes Diaz [...] like to speak with a social work sales team leader to help give you support for any [...] I will send your request to a supervisor painting shipyard who will contact and assist you with [...] 30, 2023 4:12 PM documented in this encounterPremier Health [facility]07-01-2024 NoteHNO ID: [id number] Author: AGNES DIAZ MD Service: ? Author [...] time of this appointment. Patient admitted to [facility] from 10/22 to 10/26 for initial [...] of skin of nose Dr. Chowdary in [place] Stage 3a chronic kidney disease (HCC) Venous insufficiency Previous Surgical History PAST SURGICAL HISTORY Procedure Laterality Date ARTHRP ACETBLR/PROX FEM PROSTC AGRFT/ALGRFT Right 06/03/2019 Hip replacement, total COLONOSCOPY FLX DX W/COLLJ SPEC WHEN PFRMD 04/21/11 Repeat 10 [id number] LASER GREENLIGHT prostate, [place] NEUROPLASTY AND/TRANSPOS MEDIAN [...] one hour before dental procedure. CPAP AutoPAP [id number]. Mask per preference, tubing, filters, humidity. [employer]. Dx: G47.33. Fax 30 day compliance report to [phone]. CPAP Please provide mask fitting. Pt with subjective and some degree objective leaks. Prefers nasal type mask (more content not included)...[facility]07-01-2024 History of Present illness Narrative* Agnes [...] time of this appointment. Patient admitted to [facility] from 10/22 to 10/26 for initial [...] of skin of nose Dr. Chowdary in [place] Stage 3a chronic kidney disease (HCC) Venous insufficiency Previous Surgical History PAST SURGICAL HISTORY Procedure Laterality Date ARTHRP ACETBLR/PROX FEM PROSTC AGRFT/ALGRFT Right 06/03/2019 Hip replacement, total COLONOSCOPY FLX DX W/COLLJ SPEC WHEN PFRMD 04/21/11 Repeat 10 [id number] LASER GREENLIGHT prostate, [place] NEUROPLASTY &/TRANSPOS MEDIAN [...] one hour before dental procedure. CPAP AutoPAP [id number]. Mask per preference, tubing, filters, humidity. [employer]. Dx: G47.33. Fax 30 day compliance report to [phone]. CPAP Please provide mask fitting. Pt with [...] which included preparing to see the patient, [id number] patient care, completing clinical documentation, obtaining and/or reviewing separately obtained history, performing a medically appropriate examination, counseling and educating the pat ient/family/caregiver, and ordering medications, tests, or procedures. Agnes Diaz MD documented in this encounterPremier Health [facility]07-01-2024 Evaluation note* Diagnosis Stage 3 chronic kidney disease, unspecified whether stage 3a or 3b CKD (HCC)- Primary documented in this encounter [facility]07-01-2024 NotePatient Outreach ([facility]) FRAN PAREKH ([id number]) 1945 M Date Time Provider Department 10/30/23 LEONILA TRIANA [facility] During your visit today, we recorded the following information about you: Allergies As of Date: 10/30/2023 Noted Allergy Reaction NORVASC (AMLODIPINE BESYLATE) 09/14/2016 7 - Swelling Comments: pedal edema VENOM-WASP 01/14/2005 7 - Swelling ZITHROMAX (AZITHROMYCIN) 01/14/2005 9 - Itching Date Reviewed: 10/27/2023 Reviewed by: Virgilio Bee, RN - Fully Assessed Reason for Visit: Transition Of Care [8257] Cmt: Value-Based TCM Initial - No Text [...] hour before dental procedure. - CPAP AutoPAP [id number]. Mask per preference, tubing, filters, humidity. [employer]. Dx: G47.33. Fax 30 day compliance report to [phone]. - CPAP Please provide mask fitting. Pt [...] 03/25/2009 Open fracture of distal phalangeal tuft [SNX616*08/31/2011 05/09/2014 Internal derangement of right knee [M23.91] [...] 10/25/2023 Encounter Status:Closed by LEONILA TRIANA on 10/30/23[facility] 10-30-2023 NotePatient Outreach ([facility]) FRAN PAREKH ([id number]) 1945 M Date Time Provider Department 10/30/23 [...] then after patient has not heard from [facility] - states he will call tomorrow afternoon if no contact first SUMMARY: Discharge Network Status: In-Network Discharge Pt discharged from [facility] on 10/27/23. Admitted for: complaint of SOB and dizziness and was found to have saddle PE and right LE DVT Contact made with patient: Yes Hi my name is Leonila Triana, CHAD and I am calling from the [facility] on behalf of your PCP, Agnes Diaz [...] like to speak with a social work sales team leader to help give you support for any [...] I will send your request to a supervisor painting shipyard who will contact and assist you with [...] Itching Date Reviewed: 0 (more content not included)...[facility] 10-27-2023 NoteHNO ID: [id number] Author: STEFANI MENEZES RN Service: Care Management Author Type: Registered Nurse Type: Care Mgt Progress Note Filed: 10/30/2023 14:40 Note Text: CARE MANAGEMENT PROGRESS NOTE SERVICE DATE: 10/30/2023 SERVICE TIME: 2:24 PM LOS: 4 days [place] caretenders unable to commit. Canceled referral sent to [facility] they have accepted. Called pt. Have explained that caretenders having difficulty committing . Sending ref to [facility]. He agreed with the plan SIGNATURE: Stefani Menezes RN PATIENT NAME: Fran Parekh DATE: October 30, 2023 TIME: 2:23 PM PAGER/CONTACT #: [phone] [id number] NoteHNO ID: [id number] Author: ?, ?, ? Service: ? Author Type: ? Type: Plan of Care Filed: 10/30/2023 10:38 Note Text: PHARMACY BEDSIDE DELIVERY SERVICE Patient Name: Fran Parekh The marked outpatient medications were filled at [facility] pharmacy and picked up at the pharmacy [...] Thank you. DME = [employer] CPAP AutoPAP [id number]. Mask per preference, tubing, filters, humidity. [employer]. Dx: G47.33. Fax 30 day compliance report to [phone]. gabapentin 300 mg capsule Commonly known as: [...] Generic drug: naproxen sodium Fatimahjavier Abarca PAGER: [phone] October 30, 2023 10:37 [facility]06-28-2024 NoteHNO ID: [id number] Author: STEFANI MENEZES RN Service: Care Management Author Type: Registered Nurse Type: Care Mgt Progress Note Filed: 10/27/2023 15:28 Note Text: CARE MANAGEMENT DISCHARGE NOTE SERVICE DATE: October 27, 2023 SERVICE TIME: 3:27 PM Admission Date: 10/23/2023 LOS: 4 days Discharge Arrangement Discharge Arrangement: Home with Home Health, Home with Relative Services Arranged Medical Services: Skilled Home Health Care Caregiver Assessment Needs [facility] Transportation Arrangements Transportation Arrangements: Car Date of Trip: 10/27/23 Destination: home Handoff Communication: Handoff to: Primary Care Physician Primary Care Physician Name/Phone: dr tierney Additional Information: Discharge Information Row Name Admission (Current) from 10/23/[address] [facility] Health Care Agency [facility] Start of Care -- they will call to set up appointment Reviewed 9 page list picked care tenders in [place] SIGNATURE: Stefani Menezes RN PATIENT NAME: Fran Parekh DATE: October 27, 2023 TIME: 3:27 PM CONTACT #: [phone] NoteHNO ID: [id number] Author: STEFANI MENEZES RN Service: Care Management Author Type: Registered Nurse Type: Care Mgt Progress Note Filed: 10/27/2023 15:17 Note Text: CARE MANAGEMENT PROGRESS NOTE SERVICE DATE: 10/27/2023 SERVICE TIME: 3:16 PM LOS: 4 days [place] of Choice Given: Yes Level of Care Discussed: Home Care Financial Disclosure Provided: Yes Provider List: Home Care Provider list within the patient's requested geographic area shared with the patient/family: Yes within: 15 miles of zip code: [address] Quality and resource use metrics shared with the patient that are relevant to the patient's goals of care and treatment preferences:: Yes First choice is care tenders [place] SIGNATURE: Stefani Menezes RN PATIENT NAME: Fran Parekh DATE: October 27, 2023 TIME: 3:16 PM PAGER/CONTACT #: [phone] [id number] NoteHNO ID: [id number] Author: MARQUITA HARP MD Service: Hospital Medicine [...] Bolus for Subtherapeutic PTTAC) 0-30 mL/hr See [facility] for full Linked Orders Report. 0-3,000 Units/hr INTRAVENOUS CONTINUOUS Rate/Dose Calculated - Heparin, 10/25 1350 10/24/23 1251 -- 10/24/23 1700 WARFARIN DOSING PER PHARMACY 1 Each OTHER DAILY - (more content not included)...[facility] HospitalSazfmrqp05-50-1333 Telephone encounter Note* Telephone Encounter - Sissy Campbell LPN - 10/26/2023 1:32 PM EDT Phoned patient and discussed with him recommendations. Patient agreeable to 10/30/23 at 1:20pm. [facility]06-27-2024 Miscellaneous Notes* Telephone Encounter - Sissy Campbell LPN - 10/26/2023 1:32 PM EDT Phoned patient and discussed with him recommendations. Patient agreeable to 10/30/23 at 1:20pm. * Telephone Encounter - Agnes Diaz MD - 10/26/2023 1:22 PM EDT I was called by the hospitalist at [facility] for this patient regarding new diagnosis of PE and DVT.He is on day 6 of 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 with coumadin and is still not therapeutic. They are wanting to starting him on lovenox and continue coumadin and have him f/u with our office on Monday for appointment and INR. Please call to schedule 40 minute OV with me. documented in this encounterPremier Health [facility]06-27-2024 Telephone encounter Note * Telephone Encounter - Agnes Diaz MD - 10/26/2023 1:22 PM EDT I was called by the hospitalist at [facility] for this patient regarding new diagnosis of PE and DVT.He is on day 6 of 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 with coumadin and is still not therapeutic. They are wanting to starting him on lovenox and continue coumadin and have him f/u with our office on Monday for appointment and INR. Please call to schedule 40 minute OV with me. [facility]06-26-2024 NoteHNO ID: [id number] Author: MARQUITA HARP MD Service: Hospital Medicine [...] Given, 10/24 0835 06 (more content not included)...[facility] HospitalPeycezow05-50-3818 NoteHNO ID: [id number] Author: FATIMAH DAN MD Service: Critical Care [...] and Airways Line Duration Peripheral 10/23/23 0230 [facility] Left Forearm 20 Gauge 1 day Peripheral 10/24/23 0400 [facility] Right Forearm 20 Gauge <1 day PHYSICAL [...] #Neuropathy- continue Gabapentin 3 (more content not included)...[facility] HospitalHnfpoqkr70-21-4874 NoteHNO ID: [id number] Author: YUMIKO PAREDES RN Service: Care Management [...] RA. Per medical team possible transfer to [facility] if hemodynamically stable. Plan for home with no skilled needs. CM remains available for plan of care and discharge planning needs as they arise. SIGNATURE: Yumiko Paredes RN PATIENT NAME: Fran Parekh DATE: October 24, 2023 TIME: 9:34 AM PAGER/CONTACT #:[facility] [phone] NoteHNO ID: [id number] Author: FATIMAH DAN MD Service: Critical Care Author Type: Physician Type: Progress Notes Filed: 10/24/2023 13:34 Note Text: [facility] STAFF PHYSICIAN NOTE OF PERSONAL INVOLVEMENT IN [...] hypothyroidism, and CKD IIIa. Initially presented to [facility] 10/21 with concerns for SOB and lightheadedness. Lightheadedness x24 hours, SOB x2 weeks. CTPE with saddle PE with extension R and L main (R centric, L near vessel wall). Imaging concerns for RH strain. [facility]. On arrival, HDS, [...] of care, medical plan for the day, provider relations consultant recommendations, medical disposition and current medical condition/prognosis as and if clinically indicated. All questions and concerns were answered and addressed at this juncture. They were contacted on October 24, 2023 at 11:30 Am. The duration of the conversation was 5 minutes. Moderate complexity. Ok for RNF SIGNATURE: Fatimah Dan MD [facility] DATE of SERVICE: 10/24/2023[facility] [id number] NoteHNO ID: [id number] Author: DEISY DUMAS RN Service: Care Management Author Type: Registered Nurse Type: Care Mgt Initial Assessment Filed: 10/23/2023 13:15 Note Text: CARE MANAGEMENT: ASSESSMENT AND DISCHARGE PLAN SERVICE DATE: October 23, 2023 SERVICE TIME: 1045 PCP: Agnes Diaz MD Primary Contact: Extended Emergency Contact Information Primary Emergency Contact: Estefania Parekh Address: [address] [place] [address] Mobile Relation: Spouse Admission Status: Inpatient Insurance Provider: MEDICARE A AND B Discharge Planning requested by: Per Department Practice Potential Transition Plans No Services Indicated Advance Directives Current Advance Directive: Health Care Power of Administrative Library Assistant In Chart: No Manager Wastewater Attempted to Assist with AD Completion: Yes [...] Patient Goal(s): Be able to go home [place] of Choice Explained: [place] of Choice Given: No Reason Not Given: [...] independent, drives and 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 Pt lives with his in a 2 story home. Pt is currently in [place]. Pt states no other DME besides CPAP and no services in the home. Pt states no issues with SDOH, substances or BH. Pt states no concerns at d/c. Plan for d/c with no skilled needs. SIGNATURE: Deisy Dumas RN PATIENT NAME: Fran Parekh DATE: October 23, 2023 TIME: 1:09 PM CONTACT # [phone] [id number] NoteHNO ID: [id number] Author: FATIMAH DAN MD Service: Critical Care [...] obesity, hypothyroidism, and CKD IIIa. Presenting from [facility] with Submassive intermediate to high risk PE [...] Clinical Associate Staff, Critical care Medicine Pager: [phone] October 23, 2023 3:33 [facility]06-24-2024 NoteHNO ID: [id number] Author: ANNE-MARIE MARRUFO DO Service: Critical Care Author Type: Resident Type: Plan of Care Filed: 10/23/2023 14:17 Note Text: This is a 78-year-old male with a past medical history of hypertension, hyperlipidemia, hypothyroidism, MARTIN on CPAP, prediabetes, CKD, and angina who presents with dizziness and lightheadedness from [facility] and was found to have a saddle pulmonary embolism. CT of the chest was performed and showed a saddle embolus with thrombus in the right main pulmonary artery (50% lumen of the vessel., Left main 20 to 30% lumen of the vessel. Given requirement for PERT team consultation patient was transferred to [facility] this morning. Discussions with Dr. Gonzales [...] with the pulmonary hypertension treatment. Anne-Marie Marrufo, [facility]06-24-2024 NoteHNO ID: [id number] Author: FATIMAH DAN MD Service: Critical Care Author Type: Physician Type: Progress Notes Filed: 10/23/2023 15:39 Note Text: [facility] STAFF PHYSICIAN NOTE OF PERSONAL INVOLVEMENT IN [...] hypothyroidism, and CKD IIIa. Initially presented to [place] ED 10/21 with concerns for SOB and lightheadedness. Lightheadedness x24 hours, SOB x2 weeks. CTPE with saddle PE with extension R and L main (R centric, L near vessel wall). Imaging concerns for RH strain. Transferred to [facility] for further work up. On arrival, HDS, [...] Full Code Family Contact: Disposition: Monitor in [facility] Patient/Family Updated: Patient, Fran Parekh, contacted. They were updated on the patient's goals of care, medical plan for the day, provider relations consultant recommendations, medical disposition and current medical condition/prognosis as and if clinically indicated. All questions and concerns were answered and addressed at this juncture. They were contacted on October 23, 2023 at 11:15 AM. The duration of the conversation was 5 minutes. Billing performed by overnight team on early AM admission. SIGNATURE: Fatimah Dan MD [facility] DATE [facility]: [facility]23[facility] History of Present illness Narrative* Sherrell Rouse APRN.VP CUSTOMER SERVICE - 10/09/2023 7:23 AM EDT This note was created using NoteWriter. Subjective rFan Parekh is a 78 year old male. [...] history is provided by the patient. No park interpreter was used. Rash This is a new [...] of skin of nose Dr. Chowdary in [place] Stage 3a chronic kidney disease (HCC) Venous insufficiency PAST SURGICAL HISTORY Procedure Laterality Date ARTHRP ACETBLR/PROX FEM PROSTC AGRFT/ALGRFT Right 06/03/2019 Hip replacement, total COLONOSCOPY FLX DX W/COLLJ SPEC WHEN PFRMD 04/21/11 Repeat 10 [id number] LASER GREENLIGHT prostate, [place] NEUROPLASTY &/TRANSPOS MEDIAN [...] before dental procedure.^Disp: 4 capsule^Rfl: 3 CPAP^AutoPAP [id number]. Mask per preference, tubing, filters, humidity. Lif[employer] Supplies. Dx: G47.33. Fax 30 day compliance report to [phone].^Disp: 1 Each^Rfl: 999 CPAP^Please provide mask fitting. [...] red flags V/units with PCP Sherrell Rouse APRN.VP CUSTOMER SERVICE documented in this encounterPremier [facility]05-29-2024 Telephone encounter Note * Telephone Encounter - [...] Please advise. Thank you. Agustín Monroy RN. [facility]05-29-2024 Miscellaneous Notes* Telephone Encounter - Agustín Monroy [...] you. Agustín Monroy RN. documented in this encounterPremier Health [facility]05-06-2024 Telephone encounter Note * Telephone Encounter - [...] No need to notify patient. Marilia Brush [facility]05-06-2024 Miscellaneous Notes* Telephone Encounter - Marilia Brush [...] notify patient. Marilia Brush documented in this encounterPremier Health [facility]04-02-2024 History of Present illness Narrative* PodlogMarilia stuart [...] of skin of nose Dr. Chowdary in [place] Stage 3a chronic kidney disease (HCC) Venous [...] one hour before dental procedure. CPAP AutoPAP [id number]. Mask per preference, tubing, filters, humidity. Lif[employer] Supplies. Dx: G47.33. Fax 30 day compliance report to [phone]. CPAP Please provide mask fitting. Pt with [...] Level: 3 - Low documented in this encounterPremier Health [facility]03-09-2024 Miscellaneous Notes* Telephone Encounter - Lashawn Voss LPN - 07/08/2023 11:40 AM EST letter completed and sent out via mail to patient. Lashawn Voss LPN * Telephone Encounter - Agnes Diaz MD - 07/08/2023 11:31 AM EST Letter printed and signed for patient to pecan picker at his convenience. * Telephone Encounter [...] MD - 07/08/2023 9:18 AM EST The [employer] [employer] and the [place] [employer] both advise againstthe [...] had hip surgery by Dr Claire in [place], and the provider no longer worksthere. He states he is supposed to have an antibiotic an hour before getting his teeth cleaned and the dentist will not prescribe them for him. Pt is asking if the provider will call the antibiotic for him to [facility] in [place]. Pt states he missed his appointment, so he is on the call in list right now. Please call and advise Pt. documented in this encounterPremier Health [facility]02-22-2024 Miscellaneous Notes* Telephone Encounter - Agustín Monroy [...] understanding. Agustín Monroy RN documented in this encounterPremier Health Miami [facility]02-16-2024 Nurse Note* Eunice Bruce LPN - 06/16/2023 11:39 AM EST ALESSIA BP average: BP 161/97 P 66 #1 BP 152/89 P 68 #2 BP 161/98 P 67 #3 BP 155/96 P 66 #4 BP 154/92 P 66 #5 BP 168/96 P 67 #6 BP 166/102 P 67 Eunice Bruce LPN documented in this encounterPremier Health [facility]02-16-2024 History of Present illness Narrative* Marilia Orozco APRN.VP CUSTOMER SERVICE - 06/16/2023 10:40 AM EST 06/16/2023 Patient [...] of skin of nose Dr. Chowdary in [place] Stage 3a chronic kidney disease (HCC) Venous [...] one hour before dental procedure. CPAP AutoPAP [id number]. Mask per preference, tubing, filters, humidity. Lif[employer] Supplies. Dx: G47.33. Fax 30 day compliance report to [phone]. CPAP Please provide mask fitting. Pt with [...] Level: 4 - Moderate documented in this encounterPremier Health [facility]01-15-2024 History of Present illness Narrative* Karen Wing [...] 15, 2023 10:09 AM documented in this encounterPremier Health [facility]11-20-2023 Miscellaneous Notes* Telephone Encounter - Danica Mayen Ma - 03/20/2023 10:53 AM EST Patient last visit 11/02/22 Follow up appointment scheduled 05/15/23 Danica Mayen Ma documented in this encounterPremier Health Miami [facility]11-13-2023 History of Present illness Narrative* Anusha Trevino [...] 13, 2023 9:53 AM documented in this encounterPremier Health [facility]11-07-2023 Miscellaneous Notes* Telephone Encounter - Radha Montgomery [...] Patient aware RX will be sent to [facility] pharmacy. No need to notify patient. Marilia Brush documented in this encounterPremier Health Miami [facility]10-10-2023 Miscellaneous Notes* Telephone Encounter - Leonila Winslow [...] and advise. Sherrell Pardo documented in this encounterPremier Health [facility]09-25-2023 Miscellaneous Notes* Telephone Encounter - Alexandrea Winslow LPN - 01/23/2023 9:08 AM EDT Faxed Rx medical necessity for durable medical equipment to [facility] [phone]. Document scanned into chart. Alexandrea Winslow LPN documented in this encounterPremier Health [facility]08-31-2023 History of Present illness Narrative* Yogesh Forman, [...] 1135 Yogesh Forman PT documented in this encounterPremier Health Miami [facility]08-29-2023 History of Present illness Narrative* Yogesh Forman [...] in small range 2x10 7: standing at [facility] stirring the pot 1 plate plus 3 round x10 CW and x10 CCW facing both lateral directions. 8: seated at [facility], 2 plates plus 3 round pull [...] and assessment of patient's response to intervention. Self-Assisted Management: 1: Pt was educated on PNE [...] 1539 Yogesh Forman PT documented in this encounterPremier Health Miami [facility]08-24-2023 History of Present illness Narrative* Yogesh Forman [...] facing both lateral directions. 8: seated at [facility], 2 plates plus 3 round pull downs [...] 1139 Yogesh Forman PT documented in this encounterPremier Health [facility]08-18-2023 History of Present illness Narrative* Yogesh Forman [...] 1348 Yogesh Forman PT documented in this encounterPremier Health [facility]08-10-2023 History of Present illness Narrative* Yogesh Forman [...] in pain in short term and mild alf improvement. The patient will continue to benefit [...] 1645 Yogesh Forman PT documented in this encounterPremier Health [facility]08-10-2023 Miscellaneous Notes* Telephone Encounter - Amberly Velazquez [...] and advise. Amberly Velazquez documented in this encounterPremier Health Miami [facility] North08-08-2023 History of Present illness Narrative* Yogesh Forman, [...] LEVEL OF FUNCTION: TREATMENT: Therapeutic Exercise: 1: ReflexFit StepOne seat #15 x6 minutes resistance level [...] 1533 Yogesh Forman PT documented in this encounterPremier Health [facility]08-03-2023 History of Present illness Narrative* Yogesh Forman [...] 1135 Yogesh Forman PT documented in this encounterPremier Health Miami [facility]08-01-2023 History of Present illness Narrative* Sherrell Jackson [...] Planned: 16 Planned Treatment Interventions: Therapeutic exercise (31397), Neuromuscular re- education (24640), Manual therapy (14578), Therapeutic activities (20382), Self- long-term management (37893), Gait Training (66429), Patient/Family/Caregiver Education PLAN FOR NEXT VISIT: Pt. [...] has not completed his HEP since about [place] time. Low back pain returned overthe winter and has become gradually worse recently. Presents with BLE swelling, admits he supposed to be wearing compression stockings, but limited compliance due to diffculty donning. Attributes his imbalance to swollen feet. Only 1 fall on uneven terrain about a month ago in [place] reported by pt. 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 Patient education as noted. Self-Assisted Management: 1: *discussed centralization and directional preference with lumbar flexion based exercises 2: *discussed wedge may be purchased on [employer], provided dimensions and search words to pt. [...] 1245 Sherrell Jackson PT documented in this encounterPremier Health [facility]07-12-2023 Miscellaneous Notes* Telephone Encounter - Wilda Perea MA - 11/09/2022 10:37 AM EDT Mychart message sent. Wilda Perea MA * Telephone Encounter - Wilda Perea MA - 11/09/2022 8:14 AM EDT ----- Message from Marilia Orozco APRN.VP CUSTOMER SERVICE sent at 11/08/2022 3:20 PM EDT ----- ECHO shows good heart pumping function with no valvular abnormalities. Marilia Orozco APRN.CNP documented in this encounterPremier Health [facility]07-10-2023 History of Present illness Narrative* Dafne Carrillo RN - 11/07/2022 4:20 PM EDT 22 ga angio started to right forearm. Good blood return. Flushed easily with NSS. Dressing applied.Definity (Lot # [id number] exp [id number]) mixed per protocol. 1 cc administered throughout procedure. 9 cc discarded. Pt tolerated procedure well. No C/o's, Hep lock D/c'd and dressing applied. Patient discharged ambulatory with Recruiter Specialist. Dafne Carrillo, RN documented in this encounterPremier Health [facility]07-06-2023 Miscellaneous Notes* Telephone Encounter - Radha Montgomery [...] stage 3.F/u as scheduled. documented in this encounterPremier Health [facility]07-05-2023 History of Present illness Narrative* Marilia Orozco, SENIOR COMMUNICATIONS ENGINEER.VP CUSTOMER SERVICE - 11/02/2022 8:27 AM EDT 11/02/2022 Patient [...] of skin of nose Dr. Chowdary in [place] Stage 3a chronic kidney disease (HCC) Venous [...] ON EMPTY STOMACH. FOR THYROID CPAP AutoPAP [id number]. Mask per preference, tubing, filters, humidity. Lifetime Supplies. Dx: G47.33. Fax 30 day compliance report to [phone]. lisinopril (ZESTRIL, PRINIVIL) 40 mg tablet Take [...] which included preparing to see the patient, hakf-nt-wjgl patient care, completing clinical documentation, obtaining and/or reviewing separately obtained history, performing a medically appropriate examination, counseling and educating the pat ient/family/caregiver, and ordering medications, tests, or procedures. documented in this encounterPremier Health [facility]02-10-2023 Miscellaneous Notes* Telephone Encounter - Uziel Perez PA-C - 06/10/2022 10:28 AM EST E-script has been sent to [facility]. Uziel Perez PA-C * Telephone Encounter - Magali Andrews - 06/10/2022 9:03 AM EST Patient is getting dental work done on Monday morning (06/13/21). He needs a prescription for antibiotics. Please send to [facility]/pharmacy #[id number] [place] [address] [address] [facility] / pharmacy on file. documented in this encounterPremier Health [facility]01-23-2023 History of Present illness Narrative* Cole Almanza [...] ON EMPTY STOMACH. FOR THYROID CPAP AutoPAP [id number]. Mask per preference, tubing, filters, humidity. Lifetime Supplies. Dx: G47.33. Fax 30 day compliance report to [phone]. lisinopril (ZESTRIL, PRINIVIL) 40 mg tablet Take [...] CAPSULE Cole Almanza MD documented in this encounterPremier Health [facility]01-11-2023 Miscellaneous Notes* Telephone Encounter - Lindsay Pang [...] Thank you. Lindsay Pang documented in this encounterPremier Health [facility]12-14-2022 History of Present illness Narrative* Agnes Diaz [...] of skin of nose Dr. Chowdary in [place] Stage 3a chronic kidney disease (HCC) Venous insufficiency PAST SURGICAL HISTORY Procedure Laterality Date ARTHRP ACETBLR/PROX FEM PROSTC AGRFT/ALGRFT Right 06/03/2019 Hip replacement, total COLONOSCOPY FLX DX W/COLLJ SPEC WHEN PFRMD 04/21/11 Repeat 10 [id number] LASER GREENLIGHT prostate, [place] NEUROPLASTY &/TRANSPOS MEDIAN [...] MD Agnes Singh MD documented in this encounterPremier Health [facility]12-12-2022 History of Present illness Narrative* Anusha Trevino [...] 11, 2022 11:41 AM documented in this encounterPremier Health [facility]10-14-2022 History of Present illness Narrative* Wade Marquez [...] mg by mouth once daily. CPAP AutoPAP [id number]. Mask per preference, tubing, filters, humidity. Lif[employer] Supplies. Dx: G47.33. Fax 30 day compliance report to [phone]. MULTIVITAMIN,TX-MINERALS ORAL TAB Take one(1) tablet daily. [...] of skin of nose Dr. Chowdary in [place] Stage 3a chronic kidney disease (HCC) Venous [...] due for new equipment. Rx sent to [facility]. Advised pt not to drive or operate heavy machinery when sleepy. Follow up in 1 year. Wade Marquez MD I spent a total of 22 minutes on the date of the service which included preparing to see the patient, luya-cv-ggeo patient care, completing clinical documentation, obtaining and/or reviewing separately obtained history, performing a medically appropriate examination, counseling and educating the pat ient/family/caregiver, ordering medications, tests, or procedures, independently interpreting results (not separately reported), and communicating results to the patient/family/caregiver. documented in this encounterPremier Health [facility]10-06-2022 History of Present illness Narrative* Yogesh Forman [...] maximum potential yet TREATMENT: Therapeutic Exercise: 1: ReflexFit StepOne seat #16 x5 minutes resistance number [...] 45 Yogesh Golias, PT documented in this encounterPremier Health [facility]10-03-2022 History of Present illness Narrative* Yogesh Forman [...] LEVEL OF FUNCTION: TREATMENT: Therapeutic Exercise: 1: Voölks SA StepOne seat #16 x5 minutes resistance number 5 (Pt provided an update on his condition and subjective collected.) 2: supine B SKTC 2x30 seconds 3: supine DKTC 2x30 seconds with towel 4: supine LTR 2x10 5: stirring the pot standing at [facility] 1 plate plus 2 round 2x10 CW and 2x10 CCW facing both lateraldirections 6: standing at [facility], palloff press with 1 plate and 2 round 2x12 facing both lateral directions. 7: seated at [facility] with maria del rosario overhead 2 plates [...] 45 RUBENS Allred PT documented in this encounterPremier Health [facility]09-26-2022 History of Present illness Narrative* Yogesh Forman [...] 2x10 5: stirring the pot standing at [facility] 1 plate plus 2 round 2x10 CW and 2x10 CCW facing both lateraldirections 6: standing at [facility], palloff press with 1 plate and 2 round 2x12 facing both lateral directions. 7: seated at [facility] with maria del rosario overhead 2 plates [...] 45 Yogesh Forman PT documented in this encounterPremier Health [facility]09-22-2022 History of Present illness Narrative* Yogesh Forman [...] in low back. TREATMENT: Therapeutic Exercise: 1: Voölks SA StepOne seat #16 x5 minutes resistance number 5 (Pt provided an update on his condition and subjective collected.) 2: supine B SKTC 2x30 seconds 3: supine DKTC 2x30 seconds with towel 4: supine LTR 2x10 5: stirring the pot standing at [facility] 1 plate plus 2 round 2x10 CW and 2x10 CCW facing both lateraldirections 6: standing at [facility], palloff press with 1 plate and 2 round 2x12 facing both lateral directions. 7: seated at [facility] with maria del rosario overhead 2 plates [...] Treatment Time Minutes (timed/untimed): 43 Tabby Gibbs PURCHASING MANAGER/SALES Yogesh Forman PT documented in this encounterPremier Health [facility]09-19-2022 History of Present illness Narrative* Gregory Moyer, [...] relieves symptoms today TREATMENT: Therapeutic Exercise: 1: ReflexFit StepOne seat #16 x5 minutes resistance number [...] 42 RUBENS Allred PT documented in this encounterPremier Health [facility]09-14-2022 History of Present illness Narrative* Yogesh Forman [...] 2x10 5: stirring the pot standing at [facility] 1 plate plus 2 round x10 CW and x10 CCW facing both lateral directions 6: standing at [facility], palloff press with 1 plate and 2 round 2x10 facing both lateral directions. 7: seated at [facility] with maria del rosario overhead 2 plates [...] 45 Yogesh Forman PT documented in this encounterPremier Health [facility]09-12-2022 History of Present illness Narrative* Yogesh Forman [...] LEVEL OF FUNCTION: TREATMENT: Therapeutic Exercise: 1: ReflexFit StepOne seat #16 x5 minutes handles at [...] 45 Yogesh Forman PT documented in this encounterPremier Health [facility]09-06-2022 History of Present illness Narrative* Yogesh Forman [...] Time Minutes (timed/untimed): 45 Tabby Gibbs, RUBENS Forman PT documented in this encounterPremier Health [facility]08-31-2022 History of Present illness Narrative* Yogesh Forman [...] 45 RUBENS Patel PT documented in this encounterPremier Health [facility]08-29-2022 History of Present illness Narrative* Yogesh Forman [...] less verbal cueing. TREATMENT: Therapeutic Exercise: 1: Voölks SA StepOne seat #16 x5 minutes handles at [...] 45 RUBENS Patel PT documented in this encounterPremier Health [facility]08-22-2022 History of Present illness Narrative* Yogesh Forman [...] 40 Yogesh Forman PT documented in this encounterPremier Health [facility]08-19-2022 Miscellaneous Notes* Telephone Encounter - Sissy Campbell [...] patient. 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 Intake Information: Prescription present Previous Treatment: None Falls Interview: Two or more falls in the last year Falls Intervention: Falls Specific Functional Performance Tests Falls History # of falls in past year: 2 (both at [facility] in [place]) # of falls resulting in an injury [...] Demonstration;Requires Review/AdditionalEducation TREATMENT: PT Treatment Interventions: Therapeutic Exercise;Self-Assisted Management Evaluation Therapeutic Exercise: 1: Pt was [...] and visual cuing. Patient education as noted. Self-Assisted Management: 1: Pt was educated on the [...] 60 Yogesh Forman PT documented in this encounterPremier Health [facility]08-04-2022 Miscellaneous Notes* Telephone Encounter - Amara Owen [...] recheckprior to next OV. documented in this encounterPremier Health Miami [facility]07-14-2022 History of Present illness Narrative* Tri Hylton PA-C - 11/11/2021 9:43 AM EDT This note was created using Leotusriter. Subjective Fran Parekh is a 76 year [...] he is leaving for a trip to [place] and wanted to get it taken care [...] of skin of nose Dr. Chowdary in [place] Stage 3a chronic kidney disease (HCC) Venous [...] mg by mouth once daily. CPAP AutoPAP [id number]. Mask per preference, tubing, filters, humidity. Lifetime Supplies. Dx: G47.33. Fax 30 day compliance report to [phone]. 1 Device 0 MULTIVITAMIN,TX-MINERALS ORAL TAB Take one(1) tablet daily. 60 0 zmjhkniz-gfpzgaojr-zqjzsqpxolcqzw (CORTISPORIN) 3.5-10,000-1 mg/mL-unit/mL-% otic suspension Use 3 [...] W/COLLJ SPEC WHEN PFRMD 04/21/11 Repeat 10 [id number] LASER GREENLIGHT prostate, [place] NEUROPLASTY &/TRANSPOS MEDIAN [...] agreeable. Tri Hylton PA-C documented in this encounterPremier Health [facility]06-21-2022 History of Present illness Narrative* Marielle Bruner LPN - 10/19/2021 4:10 PM EDT Patient presents for Shingrix vaccine. Denies any problems at this time. Tolerated injection well. Marielle Bruner LPN documented in this encounterPremier Health Miami [facility]06-21-2022 Miscellaneous Notes* Telephone Encounter - Agnes Diaz MD - 10/19/2021 10:04 AM EDT Order approved. * Telephone Encounter - Marielle Bruner LPN - 10/19/2021 8:31 AM EDT Patient scheduled for nurse visit 10/19/21 to receive Shingrix vaccine. Please place order at this time. Marielle Bruner LPN documented in this encounterPremier Health [facility]06-08-2022 Miscellaneous Notes* Telephone Encounter - Meredith Munoz [...] you. Katlyn Melissa RN documented in this encounterPremier Health [facility]03-16-2022 Miscellaneous Notes* Telephone Encounter - Eunice Bruce LPN - 07/14/2021 11:41 AM EDT Lab client services called. A1C added on to recent blood work. Eunice Bruce LPN * Telephone Encounter - Marilia Orozco APRN.CNP - 07/14/2021 10:17 AM EDT See of lab can add on A1c to recent blood work. Marilia Orozco APRN.RUBÉN documented in this encounterPremier Health [facility]02-03-2020 History of Past illness Narrative* Problem Noted Date Resolved Date Osteoarthritis of right hip 06/03/2019 02/0 09/2019 Right flank pain 02/04/2013 05/09/2014 Right kidney stone 02/04/2013 05/09/2014 Open fracture of distal phalangeal tuft 08/31/19 12 05/09/2014 Ingrowing nail 11/26/2007 05/09/2014 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 documented as of this encounter (statuses as of 10/06/2021) [facility] History of Past illness Narrative* Problem Noted Date Resolved Date Osteoarthritis of right hip 06/03/201909/2019 Right flank pain 02/04/2013 05/09/2014 Right kidney stone 02/04/2013 05/09/2014 Open fracture of distal phalangeal tuft 08/31/1905/09/2014 Ingrowing nail 11/26/2007 05/09/2014 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 documented as of this encounter (statuses as of 10/19/2021) [facility] History of Past illness Narrative* Problem Noted Date Resolved Date Osteoarthritis of right hip 06/03/201909/2019 Right flank pain 02/04/2013 05/09/2014 Right kidney stone 02/04/2013 05/09/2014 Open fracture of distal phalangeal tuft 08/31/1905/09/2014 Ingrowing nail 11/26/2007 05/09/2014 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 documented as of this encounter (statuses as of 11/11/2021) [facility] History of Past illness Narrative* Problem Noted Date Resolved Date Osteoarthritis of right hip 06/03/201909/2019 Right flank pain 02/04/2013 05/09/2014 Right kidney stone 02/04/2013 05/09/2014 Open fracture of distal phalangeal tuft 08/31/1905/09/2014 Ingrowing nail 11/26/2007 05/09/2014 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 documented as of this encounter (statuses as of 11/19/2021) [facility] History of Past illness Narrative* Problem Noted Date Resolved Date Osteoarthritis of right hip 06/03/201909/2019 Right flank pain 02/04/2013 05/09/2014 Right kidney stone 02/04/2013 05/09/2014 Open fracture of distal phalangeal tuft 08/31/1905/09/2014 Ingrowing nail 11/26/2007 05/09/2014 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 documented as of this encounter (statuses as of 12/02/2021) [facility] History of Past illness Narrative* Problem Noted Date Resolved Date Osteoarthritis of right hip 06/03/201909/2019 Right flank pain 02/04/2013 05/09/2014 Right kidney stone 02/04/2013 05/09/2014 Open fracture of distal phalangeal tuft 08/31/19 12 05/09/2014 Ingrowing nail 11/26/2007 05/09/2014 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 documented as of this encounter (statuses as of 12/09/2021) [facility] History of Past illness Narrative* Problem Noted Date Resolved Date Osteoarthritis of right hip 06/03/201909/2019 Right flank pain 02/04/2013 05/09/2014 Right kidney stone 02/04/2013 05/09/2014 Open fracture of distal phalangeal tuft 08/31/19 12 05/09/2014 Ingrowing nail 11/26/2007 05/09/2014 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 documented as of this encounter (statuses as of 12/17/2021) [facility] History of Past illness Narrative* Problem Noted Date Resolved Date Osteoarthritis of right hip 06/03/201909/2019 Right flank pain 02/04/2013 05/09/2014 Right kidney stone 02/04/2013 05/09/2014 Open fracture of distal phalangeal tuft 08/31/19 12 05/09/2014 Ingrowing nail 11/26/2007 05/09/2014 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 documented as of this encounter (statuses as of 12/20/2021) [facility] History of Past illness Narrative* Problem Noted Date Resolved Date Osteoarthritis of right hip 06/03/201909/2019 Right flank pain 02/04/2013 05/09/2014 Right kidney stone 02/04/2013 05/09/2014 Open fracture of distal phalangeal tuft 08/31/19 12 05/09/2014 Ingrowing nail 11/26/2007 05/09/2014 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 documented as of this encounter (statuses as of 12/27/2021) [facility] History of Past illness Narrative* Problem Noted Date Resolved Date Osteoarthritis of right hip 06/03/201909/2019 Right flank pain 02/04/2013 05/09/2014 Right kidney stone 02/04/2013 05/09/2014 Open fracture of distal phalangeal tuft 08/31/19 12 05/09/2014 Ingrowing nail 11/26/2007 05/09/2014 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 documented as of this encounter (statuses as of 12/30/2021) [facility] History of Past illness Narrative* Problem Noted Date Resolved Date Osteoarthritis of right hip 06/03/201909/2019 Right flank pain 02/04/2013 05/09/2014 Right kidney stone 02/04/2013 05/09/2014 Open fracture of distal phalangeal tuft 08/31/19 12 05/09/2014 Ingrowing nail 11/26/2007 05/09/2014 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 documented as of this encounter (statuses as of 01/04/2022) [facility] History of Past illness Narrative* Problem Noted Date Resolved Date Osteoarthritis of right hip 06/03/201909/2019 Right flank pain 02/04/2013 05/09/2014 Right kidney stone 02/04/2013 05/09/2014 Open fracture of distal phalangeal tuft 08/31/19 12 05/09/2014 Ingrowing nail 11/26/2007 05/09/2014 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 documented as of this encounter (statuses as of 01/10/2022) [facility] History of Past illness Narrative* Problem Noted Date Resolved Date Osteoarthritis of right hip 06/03/201909/2019 Right flank pain 02/04/2013 05/09/2014 Right kidney stone 02/04/2013 05/09/2014 Open fracture of distal phalangeal tuft 08/31/1905/09/2014 Ingrowing nail 11/26/2007 05/09/2014 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 documented as of this encounter (statuses as of 01/12/2022) [facility] History of Past illness Narrative* Problem Noted Date Resolved Date Osteoarthritis of right hip 06/03/201909/2019 Right flank pain 02/04/2013 05/09/2014 Right kidney stone 02/04/2013 05/09/2014 Open fracture of distal phalangeal tuft 08/31/19 12 05/09/2014 Ingrowing nail 11/26/2007 05/09/2014 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 documented as of this encounter (statuses as of 01/17/2022) [facility] History of Past illness Narrative* Problem Noted Date Resolved Date Osteoarthritis of right hip 06/03/201909/2019 Right flank pain 02/04/2013 05/09/2014 Right kidney stone 02/04/2013 05/09/2014 Open fracture of distal phalangeal tuft 08/31/19 12 05/09/2014 Ingrowing nail 11/26/2007 05/09/2014 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 documented as of this encounter (statuses as of 01/20/2022) [facility] History of Past illness Narrative* Problem Noted Date Resolved Date Osteoarthritis of right hip 06/03/201909/2019 Right flank pain 02/04/2013 05/09/2014 Right kidney stone 02/04/2013 05/09/2014 Open fracture of distal phalangeal tuft 08/31/19 12 05/09/2014 Ingrowing nail 11/26/2007 05/09/2014 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 documented as of this encounter (statuses as of 01/24/2022) [facility] History of Past illness Narrative* Problem Noted Date Resolved Date Osteoarthritis of right hip 06/03/201909/2019 Right flank pain 02/04/2013 05/09/2014 Right kidney stone 02/04/2013 05/09/2014 Open fracture of distal phalangeal tuft 08/31/19 12 05/09/2014 Ingrowing nail 11/26/2007 05/09/2014 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 documented as of this encounter (statuses as of 01/31/2022) [facility] History of Past illness Narrative* Problem Noted Date Resolved Date Osteoarthritis of right hip 06/03/201909/2019 Right flank pain 02/04/2013 05/09/2014 Right kidney stone 02/04/2013 05/09/2014 Open fracture of distal phalangeal tuft 08/31/19 12 05/09/2014 Ingrowing nail 11/26/2007 05/09/2014 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 documented as of this encounter (statuses as of 02/03/2022) [facility] History of Past illness Narrative* Problem Noted Date Resolved Date Osteoarthritis of right hip 06/03/201909/2019 Right flank pain 02/04/2013 05/09/2014 Right kidney stone 02/04/2013 05/09/2014 Open fracture of distal phalangeal tuft 08/31/19 12 05/09/2014 Ingrowing nail 11/26/2007 05/09/2014 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 documented as of this encounter (statuses as of 02/11/2022) [facility] History of Past illness Narrative* Problem Noted Date Resolved Date Osteoarthritis of right hip 06/03/201909/2019 Right flank pain 02/04/2013 05/09/2014 Right kidney stone 02/04/2013 05/09/2014 Open fracture of distal phalangeal tuft 08/31/19 12 05/09/2014 Ingrowing nail 11/26/2007 05/09/2014 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 documented as of this encounter (statuses as of 04/12/2022) [facility] History of Past illness Narrative* Problem Noted Date Resolved Date Osteoarthritis of right hip 06/03/201909/2019 Right flank pain 02/04/2013 05/09/2014 Right kidney stone 02/04/2013 05/09/2014 Open fracture of distal phalangeal tuft 08/31/19 12 05/09/2014 Ingrowing nail 11/26/2007 05/09/2014 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 documented as of this encounter (statuses as of 04/14/2022) [facility] History of Past illness Narrative* Problem Noted Date Resolved Date Osteoarthritis of right hip 06/03/201909/2019 Right flank pain 02/04/2013 05/09/2014 Right kidney stone 02/04/2013 05/09/2014 Open fracture of distal phalangeal tuft 08/31/19 12 05/09/2014 Ingrowing nail 11/26/2007 05/09/2014 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 documented as of this encounter (statuses as of 05/23/2022) [facility] History of Past illness Narrative* Problem Noted Date Resolved Date Osteoarthritis of right hip 06/03/201909/2019 Right flank pain 02/04/2013 05/09/2014 Right kidney stone 02/04/2013 05/09/2014 Open fracture of distal phalangeal tuft 08/31/19 12 05/09/2014 Ingrowing nail 11/26/2007 05/09/2014 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 documented as of this encounter (statuses as of 06/10/2022) [facility] History of Past illness Narrative* Problem Noted Date Resolved Date Osteoarthritis of right hip 06/03/201909/2019 Right flank pain 02/04/2013 05/09/2014 Right kidney stone 02/04/2013 05/09/2014 Open fracture of distal phalangeal tuft 08/31/19 12 05/09/2014 Ingrowing nail 11/26/2007 05/09/2014 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 documented as of this encounter (statuses as of 08/09/2022) [facility] History of Past illness Narrative* Problem Noted Date Resolved Date Osteoarthritis of right hip 06/03/201909/2019 Right flank pain 02/04/2013 05/09/2014 Right kidney stone 02/04/2013 05/09/2014 Open fracture of distal phalangeal tuft 08/31/1905/09/2014 Ingrowing nail 11/26/2007 05/09/2014 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 documented as of this encounter (statuses as of 11/02/2022) [facility] History of Past illness Narrative* Problem Noted Date Resolved Date Osteoarthritis of right hip 06/03/201909/2019 Right flank pain 02/04/2013 05/09/2014 Right kidney stone 02/04/2013 05/09/2014 Open fracture of distal phalangeal tuft 08/31/1905/09/2014 Ingrowing nail 11/26/2007 05/09/2014 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 documented as of this encounter (statuses as of 11/03/2022) [facility] History of Past illness Narrative* Problem Noted Date Diagnosed Date Resolved Date Osteoarthritis of right hip 06/03/2019 06/06/2019 Right flank pain 02/04/2013 05/09/2014 Right kidney stone 02/04/2013 5 Open fracture of distal phalangeal tuft 08/31/2011 05/09/2014 Ingrowing nail 11/26/2007 05/09/2014 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/02/2006 05/09/2014 documented as of this encounter (statuses as of 11/09/2022) [facility] History of Past illness Narrative* Problem Noted Date Diagnosed Date Resolved Date Osteoarthritis of right hip 06/03/2019 06/06/2019 Right flank pain 02/04/2013 05/09/2014 Right kidney stone 02/04/2013 5 Open fracture of distal phalangeal tuft 08/31/2011 05/09/2014 Ingrowing nail 11/26/2007 05/09/2014 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/02/2006 05/09/2014 documented as of this encounter (statuses as of 11/09/2022) [facility] History of Past illness Narrative* Problem Noted Date Diagnosed Date Resolved Date Osteoarthritis of right hip 06/03/2019 06/06/2019 Right flank pain 02/04/2013 05/09/2014 Right kidney stone 02/04/2013 5 Open fracture of distal phalangeal tuft 08/31/2011 05/09/2014 Ingrowing nail 11/26/2007 05/09/2014 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/02/2006 05/09/2014 documented as of this encounter (statuses as of 11/29/2022) [facility] History of Past illness Narrative* Problem Noted Date Diagnosed Date Resolved Date Osteoarthritis of right hip 06/03/2019 06/06/2019 Right flank pain 02/04/2013 05/09/2014 Right kidney stone 02/04/2013 5 Open fracture of distal phalangeal tuft 08/31/2011 05/09/2014 Ingrowing nail 11/26/2007 05/09/2014 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/02/2006 05/09/2014 documented as of this encounter (statuses as of 12/01/2022) [facility] History of Past illness Narrative* Problem Noted Date Diagnosed Date Resolved Date Osteoarthritis of right hip 06/03/2019 06/06/2019 Right flank pain 02/04/2013 05/09/2014 Right kidney stone 02/04/2013 5 Open fracture of distal phalangeal tuft 08/31/2011 05/09/2014 Ingrowing nail 11/26/2007 05/09/2014 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/02/2006 05/09/2014 documented as of this encounter (statuses as of 12/07/2022) [facility] History of Past illness Narrative* Problem Noted Date Diagnosed Date Resolved Date Osteoarthritis of right hip 06/03/2019 06/06/2019 Right flank pain 02/04/2013 05/09/2014 Right kidney stone 02/04/2013 5 Open fracture of distal phalangeal tuft 08/31/2011 05/09/2014 Ingrowing nail 11/26/2007 05/09/2014 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/02/2006 05/09/2014 documented as of this encounter (statuses as of 12/08/2022) [facility] History of Past illness Narrative* Problem Noted Date Diagnosed Date Resolved Date Osteoarthritis of right hip 06/03/2019 06/06/2019 Right flank pain 02/04/2013 05/09/2014 Right kidney stone 02/04/2013 5 Open fracture of distal phalangeal tuft 08/31/2011 05/09/2014 Ingrowing nail 11/26/2007 05/09/2014 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/02/2006 05/09/2014 documented as of this encounter (statuses as of 12/09/2022) [facility] History of Past illness Narrative* Problem Noted Date Diagnosed Date Resolved Date Osteoarthritis of right hip 06/03/2019 06/06/2019 Right flank pain 02/04/2013 05/09/2014 Right kidney stone 02/04/2013 5 Open fracture of distal phalangeal tuft 08/31/2011 05/09/2014 Ingrowing nail 11/26/2007 05/09/2014 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/02/2006 05/09/2014 documented as of this encounter (statuses as of 12/16/2022) [facility] History of Past illness Narrative* Problem Noted Date Diagnosed Date Resolved Date Osteoarthritis of right hip 06/03/2019 06/06/2019 Right flank pain 02/04/2013 05/09/2014 Right kidney stone 02/04/2013 5 Open fracture of distal phalangeal tuft 08/31/2011 05/09/2014 Ingrowing nail 11/26/2007 05/09/2014 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/02/2006 05/09/2014 documented as of this encounter (statuses as of 12/22/2022) [facility] History of Past illness Narrative* Problem Noted Date Diagnosed Date Resolved Date Osteoarthritis of right hip 06/03/2019 06/06/2019 Right flank pain 02/04/2013 05/09/2014 Right kidney stone 02/04/2013 5 Open fracture of distal phalangeal tuft 08/31/2011 05/09/2014 Ingrowing nail 11/26/2007 05/09/2014 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/02/2006 05/09/2014 documented as of this encounter (statuses as of 12/28/2022) [facility] History of Past illness Narrative* Problem Noted Date Diagnosed Date Resolved Date Osteoarthritis of right hip 06/03/2019 06/06/2019 Right flank pain 02/04/2013 05/09/2014 Right kidney stone 02/04/2013 5 Open fracture of distal phalangeal tuft 08/31/2011 05/09/2014 Ingrowing nail 11/26/2007 05/09/2014 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/02/2006 05/09/2014 documented as of this encounter (statuses as of 12/29/2022) [facility] History of Past illness Narrative* Problem Noted Date Diagnosed Date Resolved Date Osteoarthritis of right hip 06/03/2019 06/06/2019 Right flank pain 02/04/2013 05/09/2014 Right kidney stone 02/04/2013 5 Open fracture of distal phalangeal tuft 08/31/2011 05/09/2014 Ingrowing nail 11/26/2007 05/09/2014 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/02/2006 05/09/2014 documented as of this encounter (statuses as of 01/23/2023) [facility] History of Past illness Narrative* Problem Noted Date Diagnosed Date Resolved Date Osteoarthritis of right hip 06/03/2019 06/06/2019 Right flank pain 02/04/2013 05/09/2014 Right kidney stone 02/04/2013 5 Open fracture of distal phalangeal tuft 08/31/2011 05/09/2014 Ingrowing nail 11/26/2007 05/09/2014 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/02/2006 05/09/2014 documented as of this encounter (statuses as of 02/08/2023) [facility] History of Past illness Narrative* Problem Noted Date Diagnosed Date Resolved Date Osteoarthritis of right hip 06/03/2019 06/06/2019 Right flank pain 02/04/2013 05/09/2014 Right kidney stone 02/04/2013 5 Open fracture of distal phalangeal tuft 08/31/2011 05/09/2014 Ingrowing nail 11/26/2007 05/09/2014 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/02/2006 05/09/2014 documented as of this encounter (statuses as of 03/08/2023) [facility] History of Past illness Narrative* Problem Noted Date Diagnosed Date Resolved Date Osteoarthritis of right hip 06/03/2019 06/06/2019 Right flank pain 02/04/2013 05/09/2014 Right kidney stone 02/04/2013 5 Open fracture of distal phalangeal tuft 08/31/2011 05/09/2014 Ingrowing nail 11/26/2007 05/09/2014 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/02/2006 05/09/2014 documented as of this encounter (statuses as of 03/14/2023) [facility] History of Past illness Narrative* Problem Noted Date Diagnosed Date Resolved Date Osteoarthritis of right hip 06/03/2019 06/06/2019 Right flank pain 02/04/2013 05/09/2014 Right kidney stone 02/04/2013 5 Open fracture of distal phalangeal tuft 08/31/2011 05/09/2014 Ingrowing nail 11/26/2007 05/09/2014 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/02/2006 05/09/2014 documented as of this encounter (statuses as of 03/20/2023) [facility] History of Past illness Narrative* Problem Noted Date Diagnosed Date Resolved Date Osteoarthritis of right hip 06/03/2019 06/06/2019 Right flank pain 02/04/2013 05/09/2014 Right kidney stone 02/04/2013 5 Open fracture of distal phalangeal tuft 08/31/2011 05/09/2014 Ingrowing nail 11/26/2007 05/09/2014 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/02/2006 05/09/2014 documented as of this encounter (statuses as of 06/16/2023) [facility] History of Past illness Narrative* Problem Noted Date Diagnosed Date Resolved Date Osteoarthritis of right hip 06/03/2019 06/06/2019 Right flank pain 02/04/2013 05/09/2014 Right kidney stone 02/04/2013 5 Open fracture of distal phalangeal tuft 08/31/2011 05/09/2014 Ingrowing nail 11/26/2007 05/09/2014 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/02/2006 05/09/2014 documented as of this encounter (statuses as of 06/22/2023) [facility] History of Past illness Narrative* Problem Noted Date Diagnosed Date Resolved Date Osteoarthritis of right hip 06/03/2019 06/06/2019 Right flank pain 02/04/2013 05/09/2014 Right kidney stone 02/04/2013 5 Open fracture of distal phalangeal tuft 08/31/2011 05/09/2014 Ingrowing nail 11/26/2007 05/09/2014 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/02/2006 05/09/2014 documented as of this encounter (statuses as of 07/08/2023) [facility] History of Past illness Narrative* Problem Noted Date Diagnosed Date Resolved Date Osteoarthritis of right hip 06/03/2019 06/06/2019 Right flank pain 02/04/2013 05/09/2014 Right kidney stone 02/04/2013 5 Open fracture of distal phalangeal tuft 08/31/2011 05/09/2014 Ingrowing nail 11/26/2007 05/09/2014 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/02/2006 05/09/2014 documented as of this encounter (statuses as of 08/01/2023) [facility] note Author Tevin Vizcaino [facility] Note Date/Time July 04, 2024 11:[address] [place] [address] Medical Records Department [address] [place] [id number] Anesthesia Postop Eval I 07/04/24 1059 MR#: [id number] Acct: [id number] Name: FRAN PAREKH Rep #:[id number] : 1945 78 From: Tevin Vizcaino PCP: Dr. Salvador Diaz MD Status :[facility] Race: C Location: [place] [address] Anesthesia: Postop Eval I Current Vital Signs [...] Yes 07/04/24 1100 <Electronically signed by Tevin Viczaino > Date _ Tevin Barron Signature: Date CC: ~ Signed [facility] Work Phone: Consult note Author Tevin Vizcaino [facility] Note Date/Time October 07, 2024 12:50 pm [facility] Medical Records Department [address] [facility] [place] [address] Anesthesia Postop Eval I 10/07/24 1249 MR#: [id number] Acct: [id number] Name: FRAN PAREKHEY Rep #:[id number] : 1945 79 From: Tevin Vizcaino PCP: Dr. Salvador Diaz MD Status :[facility] Race: C Location: [place] [address] Anesthesia: Postop Eval I Current Vital Signs [...] Tevin Barron Signature: Date CC: ~ Signed [facility] Work Phone: Evaluation noteN/ADept. of Dermatology Evaluation note* Diagnosis Cervical radiculopathy Brachial neuritis or radiculitis nos documented [facility] Diagnosis Need for vaccination- Primary Need for prophylactic vaccination and inoculation against unspecified single disease [facility] this encounter [facility] [place] [facility] Diagnosis Need for vaccination- Primary Need for prophylactic vaccination and inoculation against unspecified single disease [facility] Diagnosis Acute otitis externa of right ear, unspecified type- Primary [facility] this encounter [facility] [place] [facility]* Diagnosis Elevated glucose- Primary Other abnormal glucose documented in this encounter [facility] [place] [facility]* Diagnosis Stage 3b chronic kidney disease (HCC)- Primary [facility]* Diagnosis Chronic bilateral low back pain with bilateral sciatica At high risk for falls Personal history of fall Age-related physical debility Senility without mention of psychosis Personal history of fall documented in this encounter [facility] [place] noteNo assessment information availableWThe [facility] Work Phone: Evaluation note* Diagnosis ASHD (arteriosclerotic heart disease) Coronary atherosclerosis of unspecified type of vessel, [place] tribe or graft Hyperlipidemia LDL goal <100 Other and unspecified hyperlipidemia [facility] [place] [facility] Diagnosis Chronic bilateral low back pain with bilateral sciatica- Primary Personal history of fall Age-related physical debility Senility without mention of psychosis [facility] [place] [facility] Diagnosis Chronic bilateral low back pain with bilateral sciatica- Primary Personal history of fall Age-related physical debility Senility without mention of psychosis [facility] [place] [facility] Diagnosis Chronic bilateral low back pain with bilateral sciatica- Primary Personal history of fall Age-related physical debility Senility without mention of psychosis [facility] [place] [facility] Diagnosis Chronic bilateral low back pain with bilateral sciatica- Primary Personal history of fall Age-related physical debility Senility without mention of psychosis [facility] [place] [facility] Diagnosis Chronic bilateral low back pain with bilateral sciatica- Primary Personal history of fall Age-related physical debility Senility without mention of psychosis [facility] Diagnosis Chronic bilateral low back pain with bilateral sciatica- Primary Personal history of fall Age-related physical debility Senility without mention of psychosis [facility] Diagnosis Chronic bilateral low back pain with bilateral sciatica- Primary Personal history of fall Age-related physical debility Senility without mention of psychosis [facility] Chronic bilateral low back pain with bilateral sciatica- Primary Personal history of fall Age-related physical debility Senility without mention of psychosis [facility] Diagnosis MARTIN on CPAP- Primary Obstructive sleep apnea (adult) (pediatric) documented [facility] [place] [facility]* Diagnosis Medicare annual wellness visit, subsequent- Primary Routine general medical examination at a [facility] care facility Essential hypertension, benign Stage 3b chronic kidney disease (HCC) Obesity, Class III, 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) Morbid obesity Acquired hypothyroidism Unspecified hypothyroidism Advance directive discussed with patient Other specified counseling MARTIN (obstructive sleep apnea) Obstructive sleep apnea (adult) (pediatric) [facility] [place] [facility] Diagnosis URI, acute- Primary Acute upper respiratory infections of unspecified site [facility] [place] [facility] Diagnosis Status post total replacement of right hip- Primary [facility] [place] [facility] Diagnosis Essential hypertension, benign [facility] [place] [facility] Diagnosis Essential hypertension, benign- Primary Hyperlipidemia [...] Coronary atherosclerosis of unspecified type of vessel, [place] tribe or graft [facility] Diagnosis Essential hypertension, benign Stage 3b chronic kidney disease (HCC) Bilateral leg edema Edema ASHD (arteriosclerotic heart disease) Coronary atherosclerosis of unspecified type of vessel, [place] tribe or graft [facility] Diagnosis Chronic bilateral low back pain with bilateral sciatica- Primary [facility] Diagnosis Chronic bilateral low back pain with bilateral sciatica- Primary [facility] Diagnosis Chronic bilateral low back pain with bilateral sciatica- Primary [facility] Diagnosis ASHD (arteriosclerotic heart disease) Coronary atherosclerosis of unspecified type of vessel, [place] tribe or graft Hyperlipidemia LDL goal <100 Other and unspecified hyperlipidemia [facility] Diagnosis Chronic bilateral low back pain with bilateral sciatica- Primary [facility] [place] [facility] Diagnosis Chronic bilateral low back pain with bilateral sciatica- Primary [facility] [place] [facility] Diagnosis Chronic bilateral low back pain with bilateral sciatica- Primary [facility] Diagnosis Chronic bilateral low back pain with bilateral sciatica- Primary [facility] Diagnosis Chronic bilateral low back pain with bilateral sciatica- Primary [facility] Diagnosis Essential hypertension, benign [facility] Diagnosis ASHD (arteriosclerotic heart disease) Coronary atherosclerosis of unspecified type of vessel, [place] tribe or graft Hyperlipidemia LDL goal <100 Other and unspecified hyperlipidemia [facility] Diagnosis Essential hypertension, benign- Primary [facility] Diagnosis Essential hypertension, benign- Primary Prediabetes Other abnormal glucose [facility] [place] [facility] Diagnosis Essential hypertension, benign [facility] Diagnosis Essential hypertension, benign [facility] Diagnosis Rash- Primary Rash and other nonspecific skin eruption [facility] [place] [facility] Diagnosis Acute saddle pulmonary embolism, unspecified whether acute cor pulmonale present (HCC)- Primary [facility] [place] [facility] Diagnosis Acute saddle pulmonary embolism, unspecified whether acute cor pulmonale present (HCC)- Primary Pulmonary HTN (HCC) Other chronic pulmonary heart diseases Acute deep vein thrombosis (DVT) of proximal vein of right lower extremity (HCC) Essential hypertension, benign MARTIN (obstructive sleep apnea) Obstructive sleep apnea (adult) (pediatric) Right leg swelling Swelling of limb [facility] Diagnosis Acute saddle pulmonary embolism, unspecified whether acute cor pulmonale present (HCC)- Primary Unsteady gait when walking [facility] Diagnosis Other secondary pulmonary hypertension (HCC)- Primary History of pulmonary embolism Personal history of pulmonary embolism [facility] [place] [facility]* Diagnosis Other secondary pulmonary hypertension (HCC) documented [facility] [place] [facility]* Diagnosis Pre-operative examination- Primary Preoperative examination, unspecified Primary osteoarthritis of right hip Primary localized osteoarthrosis, pelvic region and thigh 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 Hyperlipidemia LDL goal <100 Other and unspecified hyperlipidemia Essential hypertension, benign ASHD (arteriosclerotic heart disease) Coronary atherosclerosis of unspecified type of vessel, [place] tribe or graft Right lower lobe lung mass [...] gait when walking [facility] [place] [facility]* Diagnosis Pre-operative examination- Primary Preoperative examination, unspecified Primary osteoarthritis of right hip Primary localized osteoarthrosis, pelvic region and thigh 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 Hyperlipidemia LDL goal <100 Other and unspecified hyperlipidemia Essential hypertension, benign ASHD (arteriosclerotic heart disease) Coronary atherosclerosis of unspecified type of vessel, [place] tribe or graft Right lower lobe lung mass [...] venous thrombosis and embolism 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 Long-term (current) use of anticoagulants BMI 38.0-38.9,adult Body Mass Index 38.0-38.9, adult Other secondary pulmonary hypertension (HCC) Lower extremity edema Edema Stage 3a chronic kidney disease (HCC) [facility] Diagnosis Pre-operative examination- Primary Preoperative examination, unspecified Primary osteoarthritis of right hip Primary localized osteoarthrosis, pelvic region and thigh 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 Hyperlipidemia LDL goal <100 Other and unspecified hyperlipidemia Essential hypertension, benign ASHD (arteriosclerotic heart disease) Coronary atherosclerosis of unspecified type of vessel, [place] tribe or graft Right lower lobe lung mass [...] Abnormality of gait documented [facility] this [facility] [place] [facility]* Diagnosis Pre-operative examination- Primary Preoperative examination, unspecified Primary osteoarthritis of right hip Primary localized osteoarthrosis, pelvic region and thigh 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 Hyperlipidemia LDL goal <100 Other and unspecified hyperlipidemia Essential hypertension, benign ASHD (arteriosclerotic heart disease) Coronary atherosclerosis of unspecified type of vessel, [place] tribe or graft Right lower lobe lung mass [...] Essential hypertension, benign documented [facility] [place] [facility]* Diagnosis Pre-operative examination- Primary Preoperative examination, unspecified Primary osteoarthritis of right hip Primary localized osteoarthrosis, pelvic region and thigh 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 Hyperlipidemia LDL goal <100 Other and unspecified hyperlipidemia Essential hypertension, benign ASHD (arteriosclerotic heart disease) Coronary atherosclerosis of unspecified type of vessel, [place] tribe or graft Right lower lobe lung mass [...] Abnormality of gait documented in this [facility] [place] [facility]* Diagnosis Pre-operative examination- Primary Preoperative examination, unspecified Primary osteoarthritis of right hip Primary localized osteoarthrosis, pelvic region and thigh 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 Hyperlipidemia LDL goal <100 Other and unspecified hyperlipidemia Essential hypertension, benign ASHD (arteriosclerotic heart disease) Coronary atherosclerosis of unspecified type of vessel, [place] tribe or graft Right lower lobe lung mass [...] Abnormality of gait documented in this [facility] [place] [facility]* Diagnosis Pre-operative examination- Primary Preoperative examination, unspecified Primary osteoarthritis of right hip Primary localized osteoarthrosis, pelvic region and thigh 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 Hyperlipidemia LDL goal <100 Other and unspecified hyperlipidemia Essential hypertension, benign ASHD (arteriosclerotic heart disease) Coronary atherosclerosis of unspecified type of vessel, [place] tribe or graft Right lower lobe lung mass [...] with bilateral sciatica [facility] Diagnosis Pre-operative examination- Primary Preoperative examination, unspecified Primary osteoarthritis of right hip Primary localized osteoarthrosis, pelvic region and thigh 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 Hyperlipidemia LDL goal <100 Other and unspecified hyperlipidemia Essential hypertension, benign ASHD (arteriosclerotic heart disease) Coronary atherosclerosis of unspecified type of vessel, [place] tribe or graft Right lower lobe lung mass [...] of pulmonary embolism documented [facility] [place] [facility]* Diagnosis Pre-operative examination- Primary Preoperative examination, unspecified Primary osteoarthritis of right hip Primary localized osteoarthrosis, pelvic region and thigh 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 Hyperlipidemia LDL goal <100 Other and unspecified hyperlipidemia Essential hypertension, benign ASHD (arteriosclerotic heart disease) Coronary atherosclerosis of unspecified type of vessel, [place] tribe or graft Right lower lobe lung mass [...] Abnormality of gait documented in this [facility] [place] [facility]* Diagnosis Pre-operative examination- Primary Preoperative examination, unspecified Primary osteoarthritis of right hip Primary localized osteoarthrosis, pelvic region and thigh 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 Hyperlipidemia LDL goal <100 Other and unspecified hyperlipidemia Essential hypertension, benign ASHD (arteriosclerotic heart disease) Coronary atherosclerosis of unspecified type of vessel, [place] tribe or graft Right lower lobe lung mass [...] apnea (adult) (pediatric) documented [facility] Diagnosis Pre-operative examination- Primary Preoperative examination, unspecified Primary osteoarthritis of right hip Primary localized osteoarthrosis, pelvic region and thigh 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 Hyperlipidemia LDL goal <100 Other and unspecified hyperlipidemia Essential hypertension, benign ASHD (arteriosclerotic heart disease) Coronary atherosclerosis of unspecified type of vessel, [place] tribe or graft Right lower lobe lung mass [...] Primary Generalized pain [facility]* Diagnosis Pre-operative examination- Primary Preoperative examination, unspecified Primary osteoarthritis of right hip Primary localized osteoarthrosis, pelvic region and thigh 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 Hyperlipidemia LDL goal <100 Other and unspecified hyperlipidemia Essential hypertension, benign ASHD (arteriosclerotic heart disease) Coronary atherosclerosis of unspecified type of vessel, [place] tribe or graft Right lower lobe lung mass [...] of right knee [facility] [place] [facility]* Diagnosis Pre-operative examination- Primary Preoperative examination, unspecified Primary osteoarthritis of right hip Primary localized osteoarthrosis, pelvic region and thigh 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 Hyperlipidemia LDL goal <100 Other and unspecified hyperlipidemia Essential hypertension, benign ASHD (arteriosclerotic heart disease) Coronary atherosclerosis of unspecified type of vessel, [place] tribe or graft Right lower lobe lung mass Swelling, mass, or lump in chest MARITN (obstructive sleep apnea) Obstructive sleep apnea (adult) [...] right lower leg [facility] [place] [facility]* Diagnosis Pre-operative examination- Primary Preoperative examination, unspecified Primary osteoarthritis of right hip Primary localized osteoarthrosis, pelvic region and thigh 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 Hyperlipidemia LDL goal <100 Other and unspecified hyperlipidemia Essential hypertension, benign ASHD (arteriosclerotic heart disease) Coronary atherosclerosis of unspecified type of vessel, [place] tribe or graft Right lower lobe lung mass [...] of unspecified site documented [facility] [place] [facility]* Diagnosis Pre-operative examination- Primary Preoperative examination, unspecified Primary osteoarthritis of right hip Primary localized osteoarthrosis, pelvic region and thigh 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 Hyperlipidemia LDL goal <100 Other and unspecified hyperlipidemia Essential hypertension, benign ASHD (arteriosclerotic heart disease) Coronary atherosclerosis of unspecified type of vessel, [place] tribe or graft Right lower lobe lung mass [...] of right knee [facility] Diagnosis Pre-operative examination- Primary Preoperative examination, unspecified Primary osteoarthritis of right hip Primary localized osteoarthrosis, pelvic region and thigh 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 Hyperlipidemia LDL goal <100 Other and unspecified hyperlipidemia Essential hypertension, benign ASHD (arteriosclerotic heart disease) Coronary atherosclerosis of unspecified type of vessel, [place] tribe or graft Right lower lobe lung mass [...] of right knee [facility] [place] [facility]* Diagnosis Pre-operative examination- Primary Preoperative examination, unspecified Primary osteoarthritis of right hip Primary localized osteoarthrosis, pelvic region and thigh 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 Hyperlipidemia LDL goal <100 Other and unspecified hyperlipidemia Essential hypertension, benign ASHD (arteriosclerotic heart disease) Coronary atherosclerosis of unspecified type of vessel, [place] tribe or graft Right lower lobe lung mass [...] right lower leg [facility] [place] [facility] Diagnosis Pre-operative examination- Primary Preoperative examination, unspecified Primary osteoarthritis of right hip Primary localized osteoarthrosis, pelvic region and thigh 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 Hyperlipidemia LDL goal <100 Other and unspecified hyperlipidemia Essential hypertension, benign ASHD (arteriosclerotic heart disease) Coronary atherosclerosis of unspecified type of vessel, [place] tribe or graft Right lower lobe lung mass [...] Swelling of limb documented [facility] [place] [facility]* Diagnosis Pre-operative examination- Primary Preoperative examination, unspecified Primary osteoarthritis of right hip Primary localized osteoarthrosis, pelvic region and thigh 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 Hyperlipidemia LDL goal <100 Other and unspecified hyperlipidemia Essential hypertension, benign ASHD (arteriosclerotic heart disease) Coronary atherosclerosis of unspecified type of vessel, [place] tribe or graft Right lower lobe lung mass [...] Swelling of limb documented [facility] [place] [facility]* Diagnosis Pre-operative examination- Primary Preoperative examination, unspecified Primary osteoarthritis of right hip Primary localized osteoarthrosis, pelvic region and thigh 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 Hyperlipidemia LDL goal <100 Other and unspecified hyperlipidemia Essential hypertension, benign ASHD (arteriosclerotic heart disease) Coronary atherosclerosis of unspecified type of vessel, [place] tribe or graft Right lower lobe lung mass [...] Essential hypertension, benign documented [facility] [place] [facility]* Diagnosis Pre-operative examination- Primary Preoperative examination, unspecified Primary osteoarthritis of right hip Primary localized osteoarthrosis, pelvic region and thigh 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 Hyperlipidemia LDL goal <100 Other and unspecified hyperlipidemia Essential hypertension, benign ASHD (arteriosclerotic heart disease) Coronary atherosclerosis of unspecified type of vessel, [place] tribe or graft Right lower lobe lung mass [...] wall, subsequent encounter [facility] [place] [facility] Diagnosis Pre-operative examination- Primary Preoperative examination, unspecified Primary osteoarthritis of right hip Primary localized osteoarthrosis, pelvic region and thigh 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 Hyperlipidemia LDL goal <100 Other and unspecified hyperlipidemia Essential hypertension, benign ASHD (arteriosclerotic heart disease) Coronary atherosclerosis of unspecified type of vessel, [place] tribe or graft Right lower lobe lung mass [...] Essential hypertension, benign [facility] Diagnosis Xerosis cutis- Primary Other specified disease of sebaceous glands 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 Multiple benign nevi Lentigo Other dyschromia Seborrheic keratosis documented in this encounter [facility] Work Phone: Evaluation note* Diagnosis Pre-operative examination- Primary Preoperative examination, unspecified Primary osteoarthritis of right hip Primary localized osteoarthrosis, pelvic region and thigh 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 Hyperlipidemia LDL goal <100 Other and unspecified hyperlipidemia Essential hypertension, benign ASHD (arteriosclerotic heart disease) Coronary atherosclerosis of unspecified type of vessel, [place] tribe or graft Right lower lobe lung mass [...] Essential hypertension, benign [facility] Diagnosis Pre-operative examination- Primary Preoperative examination, unspecified Primary osteoarthritis of right hip Primary localized osteoarthrosis, pelvic region and thigh 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 Hyperlipidemia LDL goal <100 Other and unspecified hyperlipidemia Essential hypertension, benign ASHD (arteriosclerotic heart disease) Coronary atherosclerosis of unspecified type of vessel, [place] tribe or graft Right lower lobe lung mass [...] Essential hypertension, benign [facility] [place] [facility]* Diagnosis Pre-operative examination- Primary Preoperative examination, unspecified Primary osteoarthritis of right hip Primary localized osteoarthrosis, pelvic region and thigh 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 Hyperlipidemia LDL goal <100 Other and unspecified hyperlipidemia Essential hypertension, benign ASHD (arteriosclerotic heart disease) Coronary atherosclerosis of unspecified type of vessel, [place] tribe or graft Right lower lobe lung mass [...] of pulmonary embolism [facility] [place] [facility]* Diagnosis Pre-operative examination- Primary Preoperative examination, unspecified Primary osteoarthritis of right hip Primary localized osteoarthrosis, pelvic region and thigh 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 Hyperlipidemia LDL goal <100 Other and unspecified hyperlipidemia Essential hypertension, benign ASHD (arteriosclerotic heart disease) Coronary atherosclerosis of unspecified type of vessel, [place] tribe or graft Right lower lobe lung mass [...] Primary Unspecified hypothyroidism documented in this encounter [facility] [place] [facility] Diagnosis Pre-operative examination- Primary Preoperative examination, unspecified Primary osteoarthritis of right hip Primary localized osteoarthrosis, pelvic region and thigh 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 Hyperlipidemia LDL goal <100 Other and unspecified hyperlipidemia Essential hypertension, benign ASHD (arteriosclerotic heart disease) Coronary atherosclerosis of unspecified type of vessel, [place] tribe or graft Right lower lobe lung mass [...] abdominal location- Primary documented in this encounter [facility] [place] [facility] Diagnosis Pre-operative examination- Primary Preoperative examination, unspecified Primary osteoarthritis of right hip Primary localized osteoarthrosis, pelvic region and thigh 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 Hyperlipidemia LDL goal <100 Other and unspecified hyperlipidemia Essential hypertension, benign ASHD (arteriosclerotic heart disease) Coronary atherosclerosis of unspecified type of vessel, [place] or graft Right lower lobe lung mass [...] venous (peripheral) insufficiency documented in this encounter [facility] [place] [facility] Diagnosis Pre-operative examination- Primary Preoperative examination, unspecified Primary osteoarthritis of right hip Primary localized osteoarthrosis, pelvic region and thigh 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 Hyperlipidemia LDL goal <100 Other and unspecified hyperlipidemia Essential hypertension, benign ASHD (arteriosclerotic heart disease) Coronary atherosclerosis of unspecified type of vessel, [place] tribe or graft Right lower lobe lung mass [...] in joint, forearm documented in this encounter [facility] [place] [facility] Diagnosis Pre-operative examination- Primary Preoperative examination, unspecified Primary osteoarthritis of right hip Primary localized osteoarthrosis, pelvic region and thigh 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 Hyperlipidemia LDL goal <100 Other and unspecified hyperlipidemia Essential hypertension, benign ASHD (arteriosclerotic heart disease) Coronary atherosclerosis of unspecified type of vessel, [place] tribe or graft Right lower lobe lung mass [...] in joint, forearm documented in this encounter [facility] and [facility] Author Alex Friend [facility] Note Date/Time July 04, 2024 10:0 1am [facility] Medical Records Department [address] [place] [address] History & Physical Exam 07/04/24 0957 MR#: [id number] Acct: [id number] Name: FRAN PAREKH Rep #:[id number] : 1945 78 From: Alex Sher DO PCP: Dr. Salvador Diaz MD Status :[facility] Location: [place] [address] HPI - General General Date of Admission: 07/04/24 Date of Service: 07/04/24 Chief Complaint: Biliary stent removal HPI Narrative FRAN PAREKH, is a 78 M who presents for ERCP with stent removal. [facility] hospitalization 03.26.24 - 03.28.24 dizziness - consulted [...] know when his stent will be removed. 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 Reason for referral (narrative)* Diagnostic Procedure Only (Routine) - Closed Specialty Diagnoses / Procedures Referred By Contac t Referred To Contact MOLECULAR & FUNCTIONAL IMAGING Diagnoses Other secondary pulmonary hypertension (HCC) Procedures NM LUNG VENT / PERF VQ PULMONARY VENTILATION & [place] [address] [place] [address] Molecular & Functional Imaging [address] [place] [address] Referral ID Status Reason Start Date Expiration Date V isits Requested Visits Authorized [id number] Closed Auto-Generate d Referral 11/09/2023 12/08/2024 1 1 [facility] for referral (narrative)* Diagnostic Procedure Only (Routine) - Closed Specialty Diagnoses / Procedures Referred By Contac t Referred To Contact XR IMAGING Diagnoses Chronic bilateral low back pain with bilateral sciatica Procedures XR LUMBAR GENERAL 3V AP/LAT/L5-S1 RADEX SPINE LUMBOSACRAL 2/3 VIEWS PodlogarMarilia APRN.VP CUSTOMER [employer]ICE [address] [place] [address] [place] [address] Referral ID Status Reason Start Date Expiration Date V isits Requested Visits Authorized [id number] Closed Auto-Generate d Referral 05/15/2023 06/13/2024 1 1 [facility] for referral (narrative)* Diagnostic Procedure Only (Urgent) - Closed Specialty Diagnoses / Procedures Referred By Contac t Referred To Contact US IMAGING Diagnoses Pain and swelling of right lower leg Procedures US DVT LOWER RIGHT DUP-SCAN XTR VEINS UNILATERAL/LIMITED STUDY PodlogarMarilia APRN.VP CUSTOMER SERVICE [address] [place] [address] [place] [address] Referral ID Status Reason Start Date Expiration Date V isits Requested Visits Authorized [id number] Closed Auto-Generate d Referral 01/19/2024 02/17/2025 1 1 [facility] for referral (narrative)* Diagnostic Procedure Only (Urgent) - Closed Specialty Diagnoses / Procedures Referred By Panda richards Referred To Contact US IMAGING Diagnoses Pain and swelling of right lower leg Procedures US DVT LOWER RIGHT DUP-SCAN XTR VEINS UNILATERAL/LIMITED STUDY PodlogarMarilia APRN.VP CUSTOMER SERVICE [address] [place] [address] [place] [address] Referral ID Status Reason Start Date Expiration Date V isits Requested Visits Authorized [id number] Closed Auto-Generate d Referral 01/19/2024 02/17/2025 1 1 [facility] for referral (narrative)No reason for referral information [facility] Work Phone: Reason for visit Narrative* Outpatient Procedure (Routine) - Closed Specialty Diagnoses / Procedures Referred By Panda richards Referred To Contact [facility] Diagnoses Essential hypertension, benign Stage 3b chronic kidney disease (HCC) Bilateral leg edema ASHD (arteriosclerotic heart disease) Procedures ECHO ECHO TTHRC R-T 2D W/WOM-MODE COMPL SPEC&COLR D PodlogMarilia stuart APRN.VP CUSTOMER SERVICE [address] [place] [address] [facility] [address] [place] [address] Referral ID Status Reason Start Date Expiration Date V isits Requested Visits Authorized [id number] Closed Auto-Generate d Referral 11/02/2022 11/02/2023 1 1 [facility] for visit Narrative* Diagnostic Procedure Only (Routine) - Closed Specialty Diagnoses / Procedures Referred By Panda richards Referred To Contact MOLECULAR & FUNCTIONAL IMAGING Diagnoses Other secondary pulmonary hypertension (HCC) Procedures NM LUNG VENT / PERF VQ PULMONARY VENTILATION & PERFUSION [place] [address] [place] [address] Molecular & Functional Imaging [address] [place] [id number] Referral ID Status Reason Start Date Expiration Date V isits Requested Visits Authorized [id number] Closed Auto-Generate d Referral 11/09/2023 12/08/2024 1 1 [facility] for visit Narrative* Diagnostic Procedure Only (Routine) - Closed Specialty Diagnoses / Procedures Referred By Contac t Referred To Contact XR IMAGING Diagnoses Chronic bilateral low back pain with bilateral sciatica Procedures XR LUMBAR GENERAL 3V AP/LAT/L5-S1 RADEX SPINE LUMBOSACRAL 2/3 VIEWS Podlogar, SELENE Capellan.VP CUSTOMER SERVICE [address] [place] [address] Xr Imaging [facility] Referral ID Status Reason Start Date Expiration Date V isits Requested Visits Authorized [id number] Closed Auto-Generate d Referral 05/15/2023 06/13/2024 1 1 [facility] for visit Narrative* Outpatient Procedure (Routine) - Closed Specialty Diagnoses / Procedures Referred By Contac t Referred To Contact [facility] Diagnoses Other secondary pulmonary hypertension (HCC) History of pulmonary embolism Procedures ECHO ECHO TTHRC R-T 2D W/WOM-MODE COMPL SPEC&[place] [address] [place] [id number] [facility] [address] [place] [address] Referral ID Status Reason Start Date Expiration Date V isits Requested Visits Authorized [id number] Closed Auto-Generate d Referral 11/09/2023 11/08/2024 1 1 [facility] for visit Narrative* Diagnostic Procedure Only (Routine) - Closed Specialty Diagnoses / Procedures Referred By Contac t Referred To Contact XR IMAGING Diagnoses Acute pain of right knee Procedures XR KNEE GENERAL 4V AP BOTH/PA BOTH/LAT/MERC RIGHT RADIOLOGIC EXAM KNEE COMPLETE 4/[place] [address] [place] [address] [place] [address] Referral ID Status Reason Start Date Expiration Date V isits Requested Visits Authorized [id number] Closed Auto-Generate d Referral 01/18/2024 02/16/2025 1 1 [facility] for visit Narrative* Diagnostic Procedure Only (Urgent) - Closed Specialty Diagnoses / Procedures Referred By Contac t Referred To Contact US IMAGING Diagnoses Pain and swelling of right lower leg Procedures US DVT LOWER RIGHT DUP-SCAN XTR VEINS UNILATERAL/LIMITED STUDY Podlogar, Marilia, SENIOR COMMUNICATIONS ENGINEER.VP CUSTOMER SERVICE [address] [place] [address] [place] [address] Referral ID Status Reason Start Date Expiration Date V isits Requested Visits Authorized [id number] Closed Auto-Generate d Referral 01/19/2024 02/17/2025 1 1 [facility] for visit Narrative* Diagnostic Procedure Only (Urgent) - Closed Specialty Diagnoses / Procedures Referred By Contac t Referred To Contact XR IMAGING Diagnoses Left wrist pain Procedures XR WRIST GENERAL 3V PA/LAT/OBL LEFT RADEX WRIST COMPLETE MINIMUM 3 VIEWS Podlogar, Marilia, SENIOR COMMUNICATIONS ENGINEER.VP CUSTOMER SERVICE [address] [place] [address] Phone: tel: fax: [place] [address] Referral ID Status Reason Start Date Expiration Date V isits Requested Visits Authorized [id number] Closed Auto-Generate d Referral 10/08/2024 11/07/2025 1 1 [facility] Advance Directives No Advanced Directives Records Found Date Activated Date Inactivated Comments 10/23/2023 8:12 AM 10/27/2023 7:50 PM Question Answer Comments Full Code Order Discussed With: Patient Date Activated Date Inactivated Comments 06/08/2019 11:30 AM 01/17/2020 7:58 AM Documents on File Type Date Recorded 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 Physician Expl anation Advance Directive(s) 03/04/2020 7:50 AM [...] September 04, 2016 12 :17pm Power of Administrative Library Assistant No September 04, 2016 12:17pm Date Activated [...] Yes March 26, 024 8:34am Power of Administrative Library Assistant Yes March 26, 2024 8:34am Name of Medical Power of Administrative Library Assistant Kyler Mary March 26, 2024 8:34am Living Will Yes July 02, 2024 2:53pm Power of Administrative Library Assistant Yes July 02 2:53pm Name of Medical Power of Administrative Library Assistant - ESTEFANIA ANGUIANO July 02, 2024 2:53pm Advance Directive Response Recorded Date/ Time Do you have a Healthcare Pow er of Administrative Library Assistant? No August 31, 2024 11:32am Living Will Yes July 02, 2024 3:53pm Do you have a Healthcare Pow er of Administrative Library Assistant? Yes July 02, 2024 3:53pm Name of Medical Power of Administrative Library Assistant - ESTEFANIA ANGUIANO July 02, 2024 3:53pm Advance Directive Response Recorded Date/ Time Do you have a Healthcare Pow er of Administrative Library Assistant? Yes October 03, 2024 10:22am Do you have a Healthcare Pow er of Administrative Library Assistant? No August 31, 2024 11:32am Living Will Yes July 02, 2024 3:53pm Do you have a Healthcare Pow er of Administrative Library Assistant? Yes July 02, 2024 3:53pm Name of Medical Power of Administrative Library Assistant - ESTEFANIA ANGUIANO July 02, 2024 3:53pm [...] EVALUATION HIGH COMPLEX 45 MINS Podlogar, Marilia, SELENE.VP CUSTOMER SERVICE [address] [place] [address] [facility] [address] [address] Referral ID Status Reason Start Date Expiration Date Visits Requested Visits Authorized [id number] Authorized PCP Requested Referral Auto-Generate d Referral 11/02/2022 11/02/2023 99 99 Specialty Diagnoses / Procedures Referred By Contac t Referred To Contact [facility] Diagnoses Essential hypertension, benign Stage 3b chronic kidney disease (HCC) Bilateral leg edema ASHD (arteriosclerotic heart disease) Procedures ECHO ECHO TTHRC R-T 2D W/WOM-MODE COMPL SPEC&COLR D Podlogar, Marilia, SENIOR COMMUNICATIONS ENGINEER.VP CUSTOMER SERVICE [address] [place] [address] [facility] [address] [address] Referral ID Status Reason Start Date Expiration Date Visits Requested Visits Authorized [id number] Authorized Auto-Generat ed Referral 11/02/2022 11/02/2023 1 1 Specialty Diagnoses / Procedures Referred By Contac t Referred To Contact [facility] Diagnoses Unsteady gait when walking Procedures CONSULT TO PHYSICAL THERAPY PHYSICAL THERAPY EVALUATION HIGH COMPLEX 45 MINS Agnes Diaz MD [address] [place] [address] [facility] [address] [address] Referral ID Status Reason Start Date Expiration Date Visits Requested Visits Authorized [id number] Authorized PCP Requested Referral Auto-Generate d Referral 11/01/2023 10/31/2024 99 99 Specialty Diagnoses / Procedures Referred By Contac t Referred To Contact Vascular Medicine Diagnoses Other secondary pulmonary hypertension (HCC) History of pulmonary embolism Procedures CONSULT TO VASCULAR MEDICINE OFFICE/OUTPATIENT [facility] MDM 60 [place] [address] [place] [address] Referral ID Status Reason Start Date Expiration Date Visits Requested Visits Authorized [id number] Authorized PCP Requested Referral 11/09/2023 11/08/2024 1 1 Specialty Diagnoses / Procedures Referred By Contac t Referred To Contact [facility] Diagnoses Other secondary pulmonary hypertension (HCC) History of pulmonary embolism Procedures ECHO ECHO TTHRC R-T 2D W/WOM-MODE COMPL SPEC&[place] [address] [place] [address] [facility] [address] [place] [address] Referral ID Status Reason Start Date Expiration Date Visits Requested Visits Authorized [id number] Authorized Auto-Generat ed Referral 11/09/2023 11/08/2024 1 1 Specialty Diagnoses / Procedures Referred By Contac t Referred To Contact MOLECULAR & FUNCTIONAL IMAGING Diagnoses Other secondary pulmonary hypertension (HCC) Procedures NM LUNG VENT / PERF VQ PULMONARY VENTILATION & PERFUSION IMAGING [place] [place] [address] [place] [address] Molecular & Functional Imaging [address] [place] [address] Referral ID Status Reason Start Date Expiration Date Visits Requested Visits Authorized [id number] New Request Auto-Generat ed Referral 11/09/2023 12/08/2024 1 1 Specialty Diagnoses / Procedures Referred By Contac t Referred To Contact Orthopedics Diagnoses Acute pain of right knee Procedures CONSULT PANEL TO ORTHOPAEDICS OFFICE/OUTPATIENT [facility] 60 [place] [address] [place] [address] Referral ID Status Reason Start Date Expiration Date Visits Requested Visits Authorized [id number] Authorized PCP Requested Referral 01/18/2024 01/17/2025 1 1 Specialty Diagnoses / Procedures Referred By Contac t Referred To Contact XR IMAGING Diagnoses Acute pain of right knee Procedures XR KNEE GENERAL 4V AP BOTH/PA BOTH/LAT/MERC RIGHT RADIOLOGIC EXAM KNEE COMPLETE 4/[place] [address] [place] [address] [place] [address] Referral ID Status Reason Start Date Expiration Date V isits Requested Visits Authorized [id number] Closed Auto-Generate d Referral 01/18/2024 02/16/2025 1 1 Specialty Diagnoses / Procedures Referred By Panda t Referred To Contact MR IMAGING Diagnoses Acute pain of right knee Procedures MRI KNEE WO IVCON RIGHT MRI ANY JT LOWER EXTREM W/O CONTRAST MATRL Podlogar, Marilia, SENIOR COMMUNICATIONS ENGINEER.VP CUSTOMER SERVICE [address] [place] [address] Mr Imaging [place] [address] Referral ID Status Reason Start Date Expiration Date Visits Requested Visits Authorized [id number] Authorized Auto-Generat ed Referral 01/24/2024 02/22/2025 1 1 Referral ID Status Reason Start Date Expiration Date V isits Requested Visits Authorized [id number] Closed Auto-Generate d Referral 01/24/2024 02/22/2025 1 [...] March 26, 2024 6:13am 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 March 26, 2024 6:13am Elevated liver [...] or prosecute any alcohol or drug abuse patient.[facility] the event this information is protected by the Federal Confidentiality of Alcohol and Drug Abuse Patient Records regulations: The Federal rules restrict any use of the information to criminally investigate or prosecute any alcohol or drug abuse patient.[facility] the event this information is protected by the Federal Confidentiality of Alcohol and Drug Abuse Patient Records regulations: The Federal rules restrict any use of the information to criminally investigate or prosecute any alcohol or drug abuse patient.[facility] the event this information is protected by the Federal Confidentiality of Alcohol and Drug Abuse Patient Records regulations: The Federal rules restrict any use of the information to criminally investigate or prosecute any alcohol or drug abuse patient.[facility]In the event this information is protected by the Federal Confidentiality of Alcohol and Drug Abuse Patient Records regulations: The Federal rules restrict any use of the information to criminally investigate or prosecute any alcohol or drug abuse patient.[facility] NorthIn the event this information is protected by the Federal Confidentiality of Alcohol and Drug Abuse Patient Records regulations: The Federal rules restrict any use of the information to criminally investigate or prosecute any alcohol or drug abuse patient.[facility] NorthIn the event this information is protected by the Federal Confidentiality of Alcohol and Drug Abuse Patient Records regulations: The Federal rules restrict any use of the information to criminally investigate or prosecute any alcohol or drug abuse patient.[facility] NorthIn the event this information is protected by the Federal Confidentiality of Alcohol and Drug Abuse Patient Records regulations: The Federal rules restrict any use of the information to criminally investigate or prosecute any alcohol or drug abuse patient.[facility] NorthIn the event this information is protected by the Federal Confidentiality of Alcohol and Drug Abuse Patient Records regulations: The Federal rules restrict any use of the information to criminally investigate or prosecute any alcohol or drug abuse patient.[facility] NorthIn the event this information is protected by the Federal Confidentiality of Alcohol and Drug Abuse Patient Records regulations: The Federal rules restrict any use of the information to criminally investigate or prosecute any alcohol or drug abuse patient.[facility] NorthIn the event this information is protected by the Federal Confidentiality of Alcohol and Drug Abuse Patient Records regulations: The Federal rules restrict any use of the information to criminally investigate or prosecute any alcohol or drug abuse patient.[facility] NorthIn the event this information is protected by the Federal Confidentiality of Alcohol and Drug Abuse Patient Records regulations: The Federal rules restrict any use of the information to criminally investigate or prosecute any alcohol or drug abuse patient.[facility] NorthIn the event this information is protected by the Federal Confidentiality of Alcohol and Drug Abuse Patient Records regulations: The Federal rules restrict any use of the information to criminally investigate or prosecute any alcohol or drug abuse patient.[facility] NorthIn the event this information is protected by the Federal Confidentiality of Alcohol and Drug Abuse Patient Records regulations: The Federal rules restrict any use of the information to criminally investigate or prosecute any alcohol or drug abuse patient.[facility] NorthIn the event this information is protected by the Federal Confidentiality of Alcohol and Drug Abuse Patient Records regulations: The Federal rules restrict any use of the information to criminally investigate or prosecute any alcohol or drug abuse patient.[facility] NorthIn the event this information is protected by the Federal Confidentiality of Alcohol and Drug Abuse Patient Records regulations: The Federal rules restrict any use of the information to criminally investigate or prosecute any alcohol or drug abuse patient.[facility] NorthIn the event this information is protected by the Federal Confidentiality of Alcohol and Drug Abuse Patient Records regulations: The Federal rules restrict any use of the information to criminally investigate or prosecute any alcohol or drug abuse patient.[facility] NorthIn the event this information is protected by the Federal Confidentiality of Alcohol and Drug Abuse Patient Records regulations: The Federal rules restrict any use of the information to criminally investigate or prosecute any alcohol or drug abuse patient.[facility] NorthIn the event this information is protected by the Federal Confidentiality of Alcohol and Drug Abuse Patient Records regulations: The Federal rules restrict any use of the information to criminally investigate or prosecute any alcohol or drug abuse patient.[facility] NorthIn the event this information is protected by the Federal Confidentiality of Alcohol and Drug Abuse Patient Records regulations: The Federal rules restrict any use of the information to criminally investigate or prosecute any alcohol or drug abuse patient.[facility] NorthIn the event this information is protected by the Federal Confidentiality of Alcohol and Drug Abuse Patient Records regulations: The Federal rules restrict any use of the information to criminally investigate or prosecute any alcohol or drug abuse patient.[facility] NorthIn the event this information is protected by the Federal Confidentiality of Alcohol and Drug Abuse Patient Records regulations: The Federal rules restrict any use of the information to criminally investigate or prosecute any alcohol or drug abuse patient.[facility] NorthIn the event this information is protected by the Federal Confidentiality of Alcohol and Drug Abuse Patient Records regulations: The Federal rules restrict any use of the information to criminally investigate or prosecute any alcohol or drug abuse patient.[facility] NorthIn the event this information is protected by the Federal Confidentiality of Alcohol and Drug Abuse Patient Records regulations: The Federal rules restrict any use of the information to criminally investigate or prosecute any alcohol or drug abuse patient.[facility]In the event this information is protected by the Federal Confidentiality of Alcohol and Drug Abuse Patient Records regulations: The Federal rules restrict any use of the information to criminally investigate or prosecute any alcohol or drug abuse patient.[facility] NorthIn the event this information is protected by the Federal Confidentiality of Alcohol and Drug Abuse Patient Records regulations: The Federal rules restrict any use of the information to criminally investigate or prosecute any alcohol or drug abuse patient.[facility] NorthIn the event this information is protected by the Federal Confidentiality of Alcohol and Drug Abuse Patient Records regulations: The Federal rules restrict any use of the information to criminally investigate or prosecute any alcohol or drug abuse patient.[facility] NorthIn the event this information is protected by the Federal Confidentiality of Alcohol and Drug Abuse Patient Records regulations: The Federal rules restrict any use of the information to criminally investigate or prosecute any alcohol or drug abuse patient.[facility] NorthIn the event this information is protected by the Federal Confidentiality of Alcohol and Drug Abuse Patient Records regulations: The Federal rules restrict any use of the information to criminally investigate or prosecute any alcohol or drug abuse patient.[facility] NorthIn the event this information is protected by the Federal Confidentiality of Alcohol and Drug Abuse Patient Records regulations: The Federal rules restrict any use of the information to criminally investigate or prosecute any alcohol or drug abuse patient.[facility] NorthIn the event this information is protected by the Federal Confidentiality of Alcohol and Drug Abuse Patient Records regulations: The Federal rules restrict any use of the information to criminally investigate or prosecute any alcohol or drug abuse patient.[facility] NorthIn the event this information is protected by the Federal Confidentiality of Alcohol and Drug Abuse Patient Records regulations: The Federal rules restrict any use of the information to criminally investigate or prosecute any alcohol or drug abuse patient.[facility] NorthIn the event this information is protected by the Federal Confidentiality of Alcohol and Drug Abuse Patient Records regulations: The Federal rules restrict any use of the information to criminally investigate or prosecute any alcohol or drug abuse patient.[facility] NorthIn the event this information is protected by the Federal Confidentiality of Alcohol and Drug Abuse Patient Records regulations: The Federal rules restrict any use of the information to criminally investigate or prosecute any alcohol or drug abuse patient.[facility] NorthIn the event this information is protected by the Federal Confidentiality of Alcohol and Drug Abuse Patient Records regulations: The Federal rules restrict any use of the information to criminally investigate or prosecute any alcohol or drug abuse patient.[facility] NorthIn the event this information is protected by the Federal Confidentiality of Alcohol and Drug Abuse Patient Records regulations: The Federal rules restrict any use of the information to criminally investigate or prosecute any alcohol or drug abuse patient.[facility]In the event this information is protected by the Federal Confidentiality of Alcohol and Drug Abuse Patient Records regulations: The Federal rules restrict any use of the information to criminally investigate or prosecute any alcohol or drug abuse patient.[facility] NorthIn the event this information is protected by the Federal Confidentiality of Alcohol and Drug Abuse Patient Records regulations: The Federal rules restrict any use of the information to criminally investigate or prosecute any alcohol or drug abuse patient.[facility] NorthIn the event this information is protected by the Federal Confidentiality of Alcohol and Drug Abuse Patient Records regulations: The Federal rules restrict any use of the information to criminally investigate or prosecute any alcohol or drug abuse patient.[facility]In the event this information is protected by the Federal Confidentiality of Alcohol and Drug Abuse Patient Records regulations: The Federal rules restrict any use of the information to criminally investigate or prosecute any alcohol or drug abuse patient.[facility] NorthIn the event this information is protected by the Federal Confidentiality of Alcohol and Drug Abuse Patient Records regulations: The Federal rules restrict any use of the information to criminally investigate or prosecute any alcohol or drug abuse patient.[facility]In the event this information is protected by the Federal Confidentiality of Alcohol and Drug Abuse Patient Records regulations: The Federal rules restrict any use of the information to criminally investigate or prosecute any alcohol or drug abuse patient.[facility]In the event this information is protected by the Federal Confidentiality of Alcohol and Drug Abuse Patient Records regulations: The Federal rules restrict any use of the information to criminally investigate or prosecute any alcohol or drug abuse patient.[facility]In the event this information is protected by the Federal Confidentiality of Alcohol and Drug Abuse Patient Records regulations: The Federal rules restrict any use of the information to criminally investigate or prosecute any alcohol or drug abuse patient.[facility]In the event this information is protected by the Federal Confidentiality of Alcohol and Drug Abuse Patient Records regulations: The Federal rules restrict any use of the information to criminally investigate or prosecute any alcohol or drug abuse patient.[facility]In the event this information is protected by the Federal Confidentiality of Alcohol and Drug Abuse Patient Records regulations: The Federal rules restrict any use of the information to criminally investigate or prosecute any alcohol or drug abuse patient.[facility]In the event this information is protected by the Federal Confidentiality of Alcohol and Drug Abuse Patient Records regulations: The Federal rules restrict any use of the information to criminally investigate or prosecute any alcohol or drug abuse patient.[facility]In the event this information is protected by the Federal Confidentiality of Alcohol and Drug Abuse Patient Records regulations: The Federal rules restrict any use of the information to criminally investigate or prosecute any alcohol or drug abuse patient.[facility]In the event this information is protected by the Federal Confidentiality of Alcohol and Drug Abuse Patient Records regulations: The Federal rules restrict any use of the information to criminally investigate or prosecute any alcohol or drug abuse patient.[facility]In the event this information is protected by the Federal Confidentiality of Alcohol and Drug Abuse Patient Records regulations: The Federal rules restrict any use of the information to criminally investigate or prosecute any alcohol or drug abuse patient.[facility]In the event this information is protected by the Federal Confidentiality of Alcohol and Drug Abuse Patient Records regulations: The Federal rules restrict any use of the information to criminally investigate or prosecute any alcohol or drug abuse patient.[facility]In the event this information is protected by the Federal Confidentiality of Alcohol and Drug Abuse Patient Records regulations: The Federal rules restrict any use of the information to criminally investigate or prosecute any alcohol or drug abuse patient.[facility]In the event this information is protected by the Federal Confidentiality of Alcohol and Drug Abuse Patient Records regulations: The Federal rules restrict any use of the information to criminally investigate or prosecute any alcohol or drug abuse patient.[facility]In the event this information is protected by the Federal Confidentiality of Alcohol and Drug Abuse Patient Records regulations: The Federal rules restrict any use of the information to criminally investigate or prosecute any alcohol or drug abuse patient.[facility]In the event this information is protected by the Federal Confidentiality of Alcohol and Drug Abuse Patient Records regulations: The Federal rules restrict any use of the information to criminally investigate or prosecute any alcohol or drug abuse patient.[facility]In the event this information is protected by the Federal Confidentiality of Alcohol and Drug Abuse Patient Records regulations: The Federal rules restrict any use of the information to criminally investigate or prosecute any alcohol or drug abuse patient.[facility]In the event this information is protected by the Federal Confidentiality of Alcohol and Drug Abuse Patient Records regulations: The Federal rules restrict any use of the information to criminally investigate or prosecute any alcohol or drug abuse patient.[facility]In the event this information is protected by the Federal Confidentiality of Alcohol and Drug Abuse Patient Records regulations: The Federal rules restrict any use of the information to criminally investigate or prosecute any alcohol or drug abuse patient.[facility]In the event this information is protected by the Federal Confidentiality of Alcohol and Drug Abuse Patient Records regulations: The Federal rules restrict any use of the information to criminally investigate or prosecute any alcohol or drug abuse patient.[facility]In the event this information is protected by the Federal Confidentiality of Alcohol and Drug Abuse Patient Records regulations: The Federal rules restrict any use of the information to criminally investigate or prosecute any alcohol or drug abuse patient.[facility]In the event this information is protected by the Federal Confidentiality of Alcohol and Drug Abuse Patient Records regulations: The Federal rules restrict any use of the information to criminally investigate or prosecute any alcohol or drug abuse patient.[facility]In the event this information is protected by the Federal Confidentiality of Alcohol and Drug Abuse Patient Records regulations: The Federal rules restrict any use of the information to criminally investigate or prosecute any alcohol or drug abuse patient.[facility]In the event this information is protected by the Federal Confidentiality of Alcohol and Drug Abuse Patient Records regulations: The Federal rules restrict any use of the information to criminally investigate or prosecute any alcohol or drug abuse patient.[facility]In the event this information is protected by the Federal Confidentiality of Alcohol and Drug Abuse Patient Records regulations: The Federal rules restrict any use of the information to criminally investigate or prosecute any alcohol or drug abuse patient.[facility]In the event this information is protected by the Federal Confidentiality of Alcohol and Drug Abuse Patient Records regulations: The Federal rules restrict any use of the information to criminally investigate or prosecute any alcohol or drug abuse patient.[facility]In the event this information is protected by the Federal Confidentiality of Alcohol and Drug Abuse Patient Records regulations: The Federal rules restrict any use of the information to criminally investigate or prosecute any alcohol or drug abuse patient.[facility]In the event this information is protected by the Federal Confidentiality of Alcohol and Drug Abuse Patient Records regulations: The Federal rules restrict any use of the information to criminally investigate or prosecute any alcohol or drug abuse patient.[facility]In the event this information is protected by the Federal Confidentiality of Alcohol and Drug Abuse Patient Records regulations: The Federal rules restrict any use of the information to criminally investigate or prosecute any alcohol or drug abuse patient.[facility] NorthIn the event this information is protected by the Federal Confidentiality of Alcohol and Drug Abuse Patient Records regulations: The Federal rules restrict any use of the information to criminally investigate or prosecute any alcohol or drug abuse patient.[facility]In the event this information is protected by the Federal Confidentiality of Alcohol and Drug Abuse Patient Records regulations: The Federal rules restrict any use of the information to criminally investigate or prosecute any alcohol or drug abuse patient.[facility]In the event this information is protected by the Federal Confidentiality of Alcohol and Drug Abuse Patient Records regulations: The Federal rules restrict any use of the information to criminally investigate or prosecute any alcohol or drug abuse patient.[facility]In the event this information is protected by the Federal Confidentiality of Alcohol and Drug Abuse Patient Records regulations: The Federal rules restrict any use of the information to criminally investigate or prosecute any alcohol or drug abuse patient.[facility]In the event this information is protected by the Federal Confidentiality of Alcohol and Drug Abuse Patient Records regulations: The Federal rules restrict any use of the information to criminally investigate or prosecute any alcohol or drug abuse patient.[facility]In the event this information is protected by the Federal Confidentiality of Alcohol and Drug Abuse Patient Records regulations: The Federal rules restrict any use of the information to criminally investigate or prosecute any alcohol or drug abuse patient.[facility]In the event this information is protected by the Federal Confidentiality of Alcohol and Drug Abuse Patient Records regulations: The Federal rules restrict any use of the information to criminally investigate or prosecute any alcohol or drug abuse patient.[facility]In the event this information is protected by the Federal Confidentiality of Alcohol and Drug Abuse Patient Records regulations: The Federal rules restrict any use of the information to criminally investigate or prosecute any alcohol or drug abuse patient.[facility]In the event this information is protected by the Federal Confidentiality of Alcohol and Drug Abuse Patient Records regulations: The Federal rules restrict any use of the information to criminally investigate or prosecute any alcohol or drug abuse patient.[facility]In the event this information is protected by the Federal Confidentiality of Alcohol and Drug Abuse Patient Records regulations: The Federal rules restrict any use of the information to criminally investigate or prosecute any alcohol or drug abuse patient.[facility]In the event this information is protected by the Federal Confidentiality of Alcohol and Drug Abuse Patient Records regulations: The Federal rules restrict any use of the information to criminally investigate or prosecute any alcohol or drug abuse patient.[facility]In the event this information is protected by the Federal Confidentiality of Alcohol and Drug Abuse Patient Records regulations: The Federal rules restrict any use of the information to criminally investigate or prosecute any alcohol or drug abuse patient.[facility]In the event this information is protected by the Federal Confidentiality of Alcohol and Drug Abuse Patient Records regulations: The Federal rules restrict any use of the information to criminally investigate or prosecute any alcohol or drug abuse patient.[facility]In the event this information is protected by the Federal Confidentiality of Alcohol and Drug Abuse Patient Records regulations: The Federal rules restrict any use of the information to criminally investigate or prosecute any alcohol or drug abuse patient.[facility]In the event this information is protected by the Federal Confidentiality of Alcohol and Drug Abuse Patient Records regulations: The Federal rules restrict any use of the information to criminally investigate or prosecute any alcohol or drug abuse patient.[facility]In the event this information is protected by the Federal Confidentiality of Alcohol and Drug Abuse Patient Records regulations: The Federal rules restrict any use of the information to criminally investigate or prosecute any alcohol or drug abuse patient.[facility] NorthIn the event this information is protected by the Federal Confidentiality of Alcohol and Drug Abuse Patient Records regulations: The Federal rules restrict any use of the information to criminally investigate or prosecute any alcohol or drug abuse patient.[facility] NorthIn the event this information is protected by the Federal Confidentiality of Alcohol and Drug Abuse Patient Records regulations: The Federal rules restrict any use of the information to criminally investigate or prosecute any alcohol or drug abuse patient.[facility]In the event this information is protected by the Federal Confidentiality of Alcohol and Drug Abuse Patient Records regulations: The Federal rules restrict any use of the information to criminally investigate or prosecute any alcohol or drug abuse patient.[facility] NorthIn the event this information is protected by the Federal Confidentiality of Alcohol and Drug Abuse Patient Records regulations: The Federal rules restrict any use of the information to criminally investigate or prosecute any alcohol or drug abuse patient.[facility] NorthIn the event this information is protected by the Federal Confidentiality of Alcohol and Drug Abuse Patient Records regulations: The Federal rules restrict any use of the information to criminally investigate or prosecute any alcohol or drug abuse patient.[facility] NorthIn the event this information is protected by the Federal Confidentiality of Alcohol and Drug Abuse Patient Records regulations: The Federal rules restrict any use of the information to criminally investigate or prosecute any alcohol or drug abuse patient.[facility]In the event this information is protected by the Federal Confidentiality of Alcohol and Drug Abuse Patient Records regulations: The Federal rules restrict any use of the information to criminally investigate or prosecute any alcohol or drug abuse patient.[facility]In the event this information is protected by the Federal Confidentiality of Alcohol and Drug Abuse Patient Records regulations: The Federal rules restrict any use of the information to criminally investigate or prosecute any alcohol or drug abuse patient.[facility]In the event this information is protected by the Federal Confidentiality of Alcohol and Drug Abuse Patient Records regulations: The Federal rules restrict any use of the information to criminally investigate or prosecute any alcohol or drug abuse patient.[facility]In the event this information is protected by the Federal Confidentiality of Alcohol and Drug Abuse Patient Records regulations: The Federal rules restrict any use of the information to criminally investigate or prosecute any alcohol or drug abuse patient.[facility]In the event this information is protected by the Federal Confidentiality of Alcohol and Drug Abuse Patient Records regulations: The Federal rules restrict any use of the information to criminally investigate or prosecute any alcohol or drug abuse patient.[facility]In the event this information is protected by the Federal Confidentiality of Alcohol and Drug Abuse Patient Records regulations: The Federal rules restrict any use of the information to criminally investigate or prosecute any alcohol or drug abuse patient.[facility] NorthIn the event this information is protected by the Federal Confidentiality of Alcohol and Drug Abuse Patient Records regulations: The Federal rules restrict any use of the information to criminally investigate or prosecute any alcohol or drug abuse patient.[facility]In the event this information is protected by the Federal Confidentiality of Alcohol and Drug Abuse Patient Records regulations: The Federal rules restrict any use of the information to criminally investigate or prosecute any alcohol or drug abuse patient.[facility]In the event this information is protected by the Federal Confidentiality of Alcohol and Drug Abuse Patient Records regulations: The Federal rules restrict any use of the information to criminally investigate or prosecute any alcohol or drug abuse patient.[facility]In the event this information is protected by the Federal Confidentiality of Alcohol and Drug Abuse Patient Records regulations: The Federal rules restrict any use of the information to criminally investigate or prosecute any alcohol or drug abuse patient.[facility]In the event this information is protected by the Federal Confidentiality of Alcohol and Drug Abuse Patient Records regulations: The Federal rules restrict any use of the information to criminally investigate or prosecute any alcohol or drug abuse patient.[facility] NorthIn the event this information is protected by the Federal Confidentiality of Alcohol and Drug Abuse Patient Records regulations: The Federal rules restrict any use of the information to criminally investigate or prosecute any alcohol or drug abuse patient.[facility] NorthIn the event this information is protected by the Federal Confidentiality of Alcohol and Drug Abuse Patient Records regulations: The Federal rules restrict any use of the information to criminally investigate or prosecute any alcohol or drug abuse patient.[facility] NorthIn the event this information is protected by the Federal Confidentiality of Alcohol and Drug Abuse Patient Records regulations: The Federal rules restrict any use of the information to criminally investigate or prosecute any alcohol or drug abuse patient.[facility] Reason for Visit (unrecogniz ed section and content) Reason Comments Physical Therapy PT Progress Note Specialty Diagnoses / Procedures Referred By Contac t Referred To Contact PHYSICAL THERAPY Diagnoses Unsteady gait when walking Procedures CONSULT TO PHYSICAL THERAPY PHYSICAL THERAPY EVALUATION HIGH COMPLEX 45 MINS Agnes Diaz MD [address] [place] [address] Pt [facility] [address] [place] [address] Referral ID Status Reason Start Date Expiration Date Visits Requested Visits Authorized [id number] Authorized PCP Requested Referral Auto-Generate d Referral 11/01/2023 10/31/2024 99 99 Reason Comments Physical Therapy Reason Comments PT Eval Reason Comments PT Discharge Physical Therapy Specialty Diagnoses / Procedures Referred By Contac t Referred To Contact [facility] Diagnoses Chronic bilateral low back pain with bilateral sciatica Procedures CONSULT TO PHYSICAL THERAPY PHYSICAL THERAPY EVALUATION HIGH COMPLEX 45 MINS PodlogarMarilia APRN.VP CUSTOMER SERVICE [address] [place] [address] [facility] [address] [address] Referral ID Status Reason Start Date Expiration Date Visits Requested Visits Authorized [id number] Authorized PCP Requested Referral Auto-Generate d Referral 11/02/2022 11/02/2023 99 99 Specialty Diagnoses / Procedures Referred By Contac t Referred To Contact [facility] Diagnoses Chronic bilateral low back pain with bilateral sciatica At high risk for falls Age-related physical debility Procedures CONSULT TO PHYSICAL THERAPY PHYSICAL THERAPY EVALUATION HIGH COMPLEX 45 MINS Agnes Diaz MD [address] [place] [address] [facility] [address] [address] Referral ID Status Reason Start Date Expiration Date Visits Requested Visits Authorized [id number] Authorized PCP Requested Referral Auto-Generate d Referral [...] Refill Request 03/07/2023 Reason Onset Date Comments [facility] Health Navigation Outreach 03/13/2023 ACO CARE GAPS [...] MDM 60 [place] [address] [place] [address] Referral ID Status Reason Start Date Expiration Date V isits Requested Visits Authorized [id number] Closed PCP Requested Referral 11/09/2023 11/08/2024 1 [...] LOWER EXTREM W/O CONTRAST MATRL Podlogar, Marilia, SENIOR COMMUNICATIONS ENGINEER.VP CUSTOMER SERVICE [address] [facility] [place] [address] [place] [address] Referral ID Status Reason Start Date Expiration Date V isits Requested Visits Authorized [id number] Closed Auto-Generate d Referral 01/24/2024 02/22/2025 1 [...] Comm dc 03/28/24 Reason Comments Hospital F/U [facility] 03/26-03/28 for pancreatitis Reason Onset Date Comments [...] September 17, 2024 End: September 17, 2024 Pin Worker Relationship Specialty Start Date End Date Agnes Diaz MD [address] [place], [place] [id number] PCP - General Family Practice 01/12/21 Scott Pal MD [address] [address] Referring Orthopedics 06/03/19 Scott Pal MD [address] [id number] Home Care Physician Orthopedics 06/03/19 Caroline Fitzgerald, PT [address] [place] [address] Coil Taper Acute Care 06/07/19 Poppy Garcia MD [address], [facility] [address] [place] [address] Primary Staff Physician Cardiology 07/17/18 Pin Worker Relationship Specialty Start Date End Date Agnes Diaz MD [address] [place], [place] [id number] PCP - General Family Practice 01/12/21 Scott Pal MD [address] [id number] Referring Orthopedics 06/03/19 Scott Pal MD [address] [address] Home Care Physician Orthopedics 06/03/19 Caroline Fitzgerald, PT [address] [place] [address] Coil Taper Acute Care 06/07/19 Poppy Garcia MD [address]OV[address], Desdorothy [address] [place] [address] Primary Staff Physician Cardiology 07/17/18 Pin Worker Relationship Specialty Start Date End Date Agnes Diaz MD [address] [place] [address] PCP - General Family Practice 01/12/21 Scott Pal MD [address] [address] Referring Orthopedics 06/03/19 Scott Pal MD [address] [address] Home Care Physician Orthopedics 06/03/19 Caroline Fitzgerald, PT [address] [place] [address] Coil Taper Acute Care 06/07/19 Poppy Garcia MD [address], Desk [address] [place] [address] Primary Staff Physician Cardiology 07/17/18 Pin Worker Relationship Specialty Start Date End Date Agnes Diaz MD [address] [place] [address] PCP - General Family Practice 01/12/21 Scott Pal MD [address] [address] Referring Orthopedics 06/03/19 Scott Pal MD [address] [address] Home Care Physician Orthopedics 06/03/19 Caroline Fitzgerald, PT [address] [place] [address] Coil Taper Acute Care 06/07/19 Poppy Garcia MD [address] MILEDIANAThaddeus MARIANA, Desk [address] [place] [address] Primary Staff Physician Cardiology 07/17/18 Pin Worker Relationship Specialty Start Date End Date Agnes Diaz MD [address] [place] [address] PCP - General Family Practice 01/12/21 Scott Pal MD [address] [address] Referring Orthopedics 06/03/19 Scott Pal MD [address] [address] Home Care Physician Orthopedics 06/03/19 Caroline Fitzgerald, PT [address] [place] [address] Coil Taper Acute Care 06/07/19 Poppy Garcia MD [address], Desk [address] [place] [address] Primary Staff Physician Cardiology 07/17/18 Pin Worker Relationship Specialty Start Date End Date Agnes Diaz MD [address] [place], [place] 229331 PCP - General Family Practice 01/12/21 Scott Pal MD [address] [address] Referring Orthopedics 06/03/19 Scott Pal MD [address] [address] Home Care Physician Orthopedics 06/03/19 Caroline Fitzgerald, PT [address] [place] [address] Coil Taper Acute Care 06/07/19 Poppy Garcia MD [address], Desk [address] [place] [address] Primary Staff Physician Cardiology 07/17/18 Pin Worker Relationship Specialty Start Date End Date Agnes Diaz MD [address] [place], [place] 135291 PCP - General Family Practice 01/12/21 Scott Pal MD [facility] [address] [address] Referring Orthopedics 06/03/19 Scott Pal MD [facility] [address] [address] Home Care Physician Orthopedics 06/03/19 Caroline Fitzgerald, PT [address] [place] [address] Coil Taper Acute Care 06/07/19 Poppy Garcia MD [address], Desk [address] [place] [address] Primary Staff Physician Cardiology 07/17/18 Pin Worker Relationship Specialty Start Date End Date Agnes Diaz MD [address] [place] [address] PCP - General Family Practice 01/12/21 Scott Pal MD [facility] [address] [address] Referring Orthopedics 06/03/19 Scott Pal MD [facility] [address] [address] Home Care Physician Orthopedics 06/03/19 Caroline Fitzgerald, PT [address] [place] [address] Coil Taper Acute Care 06/07/19 Poppy Garcia MD [address], Desk [address] [place] [address] Primary Staff Physician Cardiology 07/17/18 Pin Worker Relationship Specialty Start Date End Date Agnes Diaz MD [address] [place], [place] 824041 PCP - General Family Practice 01/12/21 Scott Pal MD [address] [address] Referring Orthopedics 06/03/19 Scott Pal MD [address] [address] Home Care Physician Orthopedics 06/03/19 Caroline Fitzgerlad, PT [address] [place] [address] Coil Taper Acute Care 06/07/19 Poppy Garcia MD [address], Desk [address] [place] [address] Primary Staff Physician Cardiology 07/17/18 Pin Worker Relationship Specialty Start Date End Date Agnes Diaz MD [address] [place] [address] PCP - General Family Practice 01/12/21 Scott Pal MD [address] [address] Referring Orthopedics 06/03/19 Scott Pal MD [address] [address] Home Care Physician Orthopedics 06/03/19 Caroline Fitzgerald, PT [address] [place] [address] Coil Taper Acute Care 06/07/19 Poppy Garcia MD [address], Desk [address] [place] [address] Primary Staff Physician Cardiology 07/17/18 Pin Worker Relationship Specialty Start Date End Date Agnes Diaz MD [address] [place], [place] [address]101 PCP - General Family Practice 01/12/21 Scott Pal MD [address] [address] Referring Orthopedics 06/03/19 Scott Pal MD [address] [address] Home Care Provider Orthopedics 06/03/19 Caroline Fitzgerald, PT [address] [place] [address] Coil Taper Acute Care 06/07/19 Poppy Garcia MD [address], Desk [address] [place] [address] Primary Staff Physician Cardiology 07/17/18 Pin Worker Relationship Specialty Start Date End Date Agnes Diaz MD [address] [place] [address] PCP - General Family Medicine 01/12/21 Scott Pal MD [address] [address] Referring Orthopedics 06/03/19 Scott Pal MD [address] [address] Home Care Provider Orthopedics 06/03/19 Caroline Fitzgerald, PT [address] [place] [address] Coil Taper Acute Care 06/07/19 Poppy Garcia MD [address], Desk [address] [place] [address] Primary Staff Physician Cardiology 07/17/18 Pin Worker Relationship Specialty Start Date End Date Agnes Diaz MD [address] [place] [address] PCP - General Family Medicine 01/12/21 Scott Pal MD [address] [place] [address] Referring Orthopedics 06/03/19 Scott aPl MD [address] [place] [address] Home Care Provider Orthopedics 06/03/19 Caroline Fitzgerald, PT [address] [place] [address] Coil Taper Acute Care 06/07/19 Poppy Garcia MD [address], Desk [address] [place] [address] Primary Staff Physician Cardiology 07/17/18 Pin Worker Relationship Specialty Start Date End Date Agnes Diaz MD [address] [place] [address] PCP - General Family Medicine 01/12/21 Scott Pal MD [address] [place] [address] Referring Orthopedics 06/03/19 Scott Pal MD [address] [place] [address] Home Care Provider Orthopedics 06/03/19 Caroline Fitzgerald, PT [address] [place] [address] Coil Taper Acute Care 06/07/19 Poppy Garcia MD [address], Desk [address] [place] [address] Primary Staff Physician Cardiology 07/17/18 Pin Worker Relationship Specialty Start Date End Date Agnes Diaz MD [address] [place], [place] [id number] PCP - General Family Medicine 01/12/21 Scott Pal MD [address] [place] [address] Referring Orthopedics 06/03/19 Scott Pal MD [address] [place] [address] Home Care Provider Orthopedics 06/03/19 Caroline Fitzgerald, PT [address] [place] [address] Coil Taper Acute Care 06/07/19 Poppy Garcia MD [address], Desk J[address] [place], [place] 554[address] Primary Staff Physician Cardiology 07/17/18 Pin Worker Relationship Specialty Start Date End Date Agnes Diaz MD [address] [place] [address] PCP - General Family Medicine 01/12/21 Scott Pal MD [address] [address] Referring Orthopedics 06/03/19 Scott Pal MD [address] [address] Home Care Provider Orthopedics 06/03/19 Caroline Fitzgerald, PT [address] [place] [address] Coil Taper Acute Care 06/07/19 Poppy Garcia MD [address], Desk [address] [place] [address] Primary Staff Physician Cardiology 07/17/18 Pin Worker Relationship Specialty Start Date End Date Agnes Diaz MD [address] [place], [place] [id number] PCP - General Family Medicine 01/12/21 Scott Pal MD [address] [address] Referring Orthopedics 06/03/19 Scott Pal MD [address] [address] Home Care Provider Orthopedics 06/03/19 Caroline Fitzgerald, PT [address] [place] [address] Coil Taper Acute Care 06/07/19 Poppy Garcia MD [address], Desk [address] [place] [address] Primary Staff Physician Cardiology 07/17/18 Pin Worker Relationship Specialty Start Date End Date Agnes Diaz MD [address] [place], [place] [id number] PCP - General Family Medicine 01/12/21 Scott Pal MD [address] [address] Referring Orthopedics 06/03/19 Scott Pal MD [address] [address] Home Care Provider Orthopedics 06/03/19 Caroline Fitzgerald, PT [address] [place] [address] Coil Taper Acute Care 06/07/19 Poppy Garcia MD [address], Desk [address] [place], [place] 7519395 Primary Staff Physician Cardiology 07/17/18 Pin Worker Relationship Specialty Start Date End Date Agnes Diaz MD [address] [place], [place] [id number] PCP - General Family Medicine 01/12/21 Scott Pal MD [address] [address] Referring Orthopedics 06/03/19 Scott Pal MD [address] [address] Home Care Provider Orthopedics 06/03/19 Caroline Fitzgerald, PT [address] [place] [address] Coil Taper Acute Care 06/07/19 Poppy Garcia MD [address], Desk [address] [place], [place] 4210995 Primary Staff Physician Cardiology 07/17/18 Pin Worker Relationship Specialty Start Date End Date Agnes Diaz MD [address] [place], [place] [id number] PCP - General Family Medicine 01/12/21 Scott Pal MD [address] [address] Referring Orthopedics 06/03/19 Scott Pal MD [address] [address] Home Care Provider Orthopedics 06/03/19 Caroline Fitzgerald, PT [address] [place], [place] 0114331 Coil Taper Acute Care 06/07/19 Poppy Garcia MD [address], Desk J[address] [place], [place] [address]84[address]95 Primary Staff Physician Cardiology 07/17/18 Pin Worker Relationship Specialty Start Date End Date Agnes Diaz MD [facility] [place] [address] PCP - General Family Medicine 01/12/21 Scott Pal MD [address] [address] Referring Orthopedics 06/03/19 Scott Pal MD [address] [address] Home Care Provider Orthopedics 06/03/19 Caroline Fitzgerald, PT [address] [place], [place] 3564031 Coil Taper Acute Care 06/07/19 Poppy Garcia MD [address], Desk [address] [place], [place] 334[address] Primary Staff Physician Cardiology 07/17/18 Pin Worker Relationship Specialty Start Date End Date Agnes Diaz MD [address] [place], [place] 400861 PCP - General Family Medicine 01/12/21 Scott Pal MD [address] [address] Referring Orthopedics 06/03/19 Scott Pal MD [address] [address] Home Care Provider Orthopedics 06/03/19 Caroline Fitzgerald, PT [address] [place], [place] 4401631 Coil Taper Acute Care 06/07/19 Poppy Garcia MD [address], Desk [address] [place], [place] 9664095 Primary Staff Physician Cardiology 07/17/18 Pin Worker Relationship Specialty Start Date End Date Agnes Diaz MD [address] [place], [place] 702691 PCP - General Family Medicine 01/12/21 Scott Pal MD [address] [address] Referring Orthopedics 06/03/19 Scott Pal MD [address] [address] Home Care Provider Orthopedics 06/03/19 Caroline Fitzgerald, PT [address] [place] [address] Coil Taper Acute Care 06/07/19 Poppy Garcia MD [address], Adan [address] [place] [address] Primary Staff Physician Cardiology 07/17/18 Pin Worker Relationship Specialty Start Date End Date Agnes Diaz MD [address] [place], [place] 073691 PCP - General Family Medicine 01/12/21 Scott Pal MD [address] [place] [address] Referring Orthopedics 06/03/19 Scott Pal MD [address] [place] [address] Home Care Provider Orthopedics 06/03/19 Caroline Fitzgerald, PT [address] [place] [address] Coil Taper Acute Care 06/07/19 Poppy Garcia MD [address] [place] [address] Primary Staff Physician Cardiology 07/17/18 Pin Worker Relationship Specialty Start Date End Date Agnes Diaz MD [address] [place], [place] 211081 PCP - General Family Medicine 01/12/21 Scott Pal MD [address] [address] Referring Orthopedics 06/03/19 Scott Pal MD [address] [address] Home Care Provider Orthopedics 06/03/19 Carloine Fitzgerald, PT [address] [place] [address] Coil Taper Acute Care 06/07/19 Poppy Garcia MD [address], Desk [address] [place] [address] Primary Staff Physician Cardiology 07/17/18 Pin Worker Relationship Specialty Start Date End Date Agnes Diaz MD [address] [place], [place] 033281 PCP - General Family Medicine 01/12/21 Scott Pal MD [address] [address] Referring Orthopedics 06/03/19 Scott Pal MD [address] [address] Home Care Provider Orthopedics 06/03/19 Caroline Fitzgerald, PT [address] [place] [address] Coil Taper Acute Care 06/07/19 Poppy Garcia MD [address], Desk [address] [place] [address] Primary Staff Physician Cardiology 07/17/18 Pin Worker Relationship Specialty Start Date End Date Agnes Diaz MD [address] [place] [address] PCP - General Family Medicine 01/12/21 Scott Pal MD [address] [address] Referring Orthopedics 06/03/19 Scott Pal MD [address] [place] [address] Home Care Provider Orthopedics 06/03/19 Caroline Fitzgerald, PT [address] [place] [address] Coil Taper Acute Care 06/07/19 Poppy Garcia MD [address] [place] [address] Primary Staff Physician Cardiology 07/17/18 Pin Worker Relationship Specialty Start Date End Date Agnes Diaz MD [address] [place] [address] PCP - General Family Medicine 01/12/21 Scott Pal MD [address] [place] [address] Referring Orthopedics 06/03/19 Scott Pal MD [address] [address] Home Care Provider Orthopedics 06/03/19 Caroline Fitzgerald, PT [address] [place], [place] 9065631 Coil Taper Acute Care 06/07/19 Poppy Garcia MD [address] [place] [address] Primary Staff Physician Cardiology 07/17/18 Pin Worker Relationship Specialty Start Date End Date Agnes Diaz MD [address] [place] [address] PCP - General Family Medicine 01/12/21 Scott Pal MD [address] [address] Referring Orthopedics 06/03/19 Scott Pal MD [facility] [address] [address] Home Care Provider Orthopedics 06/03/19 Caroline Fitzgerald, PT [address] [place] [address] Coil Taper Acute Care 06/07/19 Ppopy Garcia MD [address], Gianlucak [address] [place] [address] Primary Staff Physician Cardiology 07/17/18 Pin Worker Relationship Specialty Start Date End Date Agnes Diaz MD [address] [place] [address] PCP - General Family Medicine 01/12/21 Scott Pal MD [address] [address] Referring Orthopedics 06/03/19 Scott Pal MD [address] [address] Home Care Provider Orthopedics 06/03/19 Caroline Fitzgerald, PT [address] [place] [address] Coil Taper Acute Care 06/07/19 Poppy Garcia MD [address], Desk [address] [place] [address] Primary Staff Physician Cardiology 07/17/18 Pin Worker Relationship Specialty Start Date End Date Agnes Diaz MD [address] [place] [address] PCP - General Family Medicine 01/12/21 Scott Pal MD [address] [address] Referring Orthopedics 06/03/19 Scott Pal MD [address] [address] Home Care Provider Orthopedics 06/03/19 Caroline Fitzgerald, PT [address] [place] [address] Coil Taper Acute Care 06/07/19 Poppy Garcia MD [address], Desk [address] [place] [address] Primary Staff Physician Cardiology 07/17/18 Pin Worker Relationship Specialty Start Date End Date Agnes Diaz MD [address] [place] [address] PCP - General Family Medicine 01/12/21 Scott Pal MD [address] [address] Referring Orthopedics 06/03/19 Scott Pal MD [address] [address] Home Care Provider Orthopedics 06/03/19 Caroline Fitzgerald, PT [address] [place] [address] Coil Taper Acute Care 06/07/19 Poppy Garcia MD [address], Desk [address] [place], [place] 9483795 Primary Staff Physician Cardiology 07/17/18 Pin Worker Relationship Specialty Start Date End Date Agnes Diaz MD [facility] [place] [address] PCP - General Family Medicine 01/12/21 Scott Pal MD [address] [address] Referring Orthopedics 06/03/19 Scott Pal MD [address] [address] Home Care Provider Orthopedics 06/03/19 Caroline Fitzgerald, PT [address] [place] [address] Coil Taper Acute Care 06/07/19 Poppy Garcia MD [address], Desk [address] [place], [place] 9504995 Primary Staff Physician Cardiology 07/17/18 Pin Worker Relationship Specialty Start Date End Date Agnes Diaz MD [address] [place], [place] 794191 PCP - General Family Medicine 01/12/21 Scott Pal MD [address] [address] Referring Orthopedics 06/03/19 Scott Pal MD [address] [address] Home Care Provider Orthopedics 06/03/19 Caroline Fitzgerald, PT [address] [place] [address] Coil Taper Acute Care 06/07/19 Poppy Garcia MD [address] [place], [place] 4586695 Primary Staff Physician Cardiology 07/17/18 Pin Worker Relationship Specialty Start Date End Date Agnes Diaz MD [address] [place] [address] PCP - General Family Medicine 01/12/21 Scott Pal MD [address] [address] Referring Orthopedics 06/03/19 Scott Pal MD [address] [address] Home Care Provider Orthopedics 06/03/19 Poppy Garcia MD [address] [place] [address] Primary Staff Physician Cardiology 07/17/18 Pin Worker Relationship Specialty Start Date End Date Agnes Diaz MD [address] [place] [address] PCP - General Family Medicine 01/12/21 Scott Pal MD [address] [place] [address] Referring Orthopedics 06/03/19 Scott Pal MD [address] [place] [address] Home Care Provider Orthopedics 06/03/19 Poppy Garcia MD [address] [place] [address] Primary Staff Physician Cardiology 07/17/18 Team Status: Active Member Role Status Dates Dr. Macario Hopkins III, MD Family Provider Active Dr. Salvador Diaz MD Primary Care Provider Acti ve Team Status: Inactive Member Role Status Dates Dr. Bob Cabezas MD Attending Provider, Referring Provider Active Dr. Salvador Diaz MD Primary Care Provider Acti ve Pin Worker Relationship Specialty Start Date End Date Agnes Diaz MD [address] [place] [address] PCP - General Family Medicine 01/12/21 Scott Pal MD [address] [place] [address] Referring Orthopedics 06/03/19 Scott Pal MD [address] [place] [address], [place] [address] Home Care Provider Orthopedics 06/03/19 Poppy Garcia MD [address], Desk [address] [place] [address] Primary Staff Physician Cardiology 07/17/18 Pin Worker Relationship Specialty Start Date End Date Agnes Diaz MD [address] [place], [place] 716391 PCP - General Family Medicine 01/12/21 Scott Pal MD [address] [place] [address] Referring Orthopedics 06/03/19 Scott Pal MD [address] [place] [address] Home Care Provider Orthopedics 06/03/19 Poppy Garcia MD [address], Adan [address] [place] [address] Primary Staff Physician Cardiology 07/17/18 Pin Worker Relationship Specialty Start Date End Date Agnse Diaz MD [address] [place], [place] 036851 PCP - General Family Medicine 01/12/21 Scott Pal MD [address] [address] Referring Orthopedics 06/03/19 Scott Pal MD [address] [place] [address] Home Care Provider Orthopedics 06/03/19 Poppy Garcia MD [address] [place] [address] Primary Staff Physician Cardiology 07/17/18 Pin Worker Relationship Specialty Start Date End Date Agnes Diaz MD [address] [place] [address] PCP - General Family Medicine 01/12/21 Scott Pal MD [address] [place] [address] Referring Orthopedics 06/03/19 Scott Pal MD [address] [place] [address] Home Care Provider Orthopedics 06/03/19 Poppy Garcia MD [address] [place] [address] Primary Staff Physician Cardiology 07/17/18 Pin Worker Relationship Specialty Start Date End Date Agnes Diaz MD [address] [place], [place] 955461 PCP - General Family Medicine 01/12/21 Scott Pal MD [address] [place] [address] Referring Orthopedics 06/03/19 Scott Pal MD [address] [place] [address] Home Care Provider Orthopedics 06/03/19 Poppy Garcia MD [address], Desk [address] [place] [address] Primary Staff Physician Cardiology 07/17/18 Pin Worker Relationship Specialty Start Date End Date Agnes Diaz MD [address] [place], [place] 097941 PCP - General Family Medicine 01/12/21 Scott Pal MD [address] [place] [address] Referring Orthopedics 06/03/19 Scott Pal MD [address] [place] [address] Home Care Provider Orthopedics 06/03/19 Poppy Garcia MD [address], Des[address] [place] [address] Primary Staff Physician Cardiology 07/17/18 Provider, MD Aaliyah Handbag Framer 10/27/23 11/25/23 Leonila Triana, RN [address] [place] [address] Primary Care Curtain Supervisor 10/30/23 Pin Worker Relationship Specialty Start Date End Date Agnes Diaz MD [address] [place], [place] 635731 PCP - General Family Medicine 01/12/21 Scott Pal MD [address] [place] [address] Referring Orthopedics 06/03/19 Scott Pal MD [address] [address] Home Care Provider Orthopedics 06/03/19 Poppy Garcia MD [address] [address], Desk [address] [place] [address] Primary Staff Physician Cardiology 07/17/18 Aaliyah Herrera MD Handbag Framer 10/27/23 11/25/23 Leonila Triana, CHAD [address] [place] [address] Primary Care Curtain Supervisor 10/30/23 Pin Worker Relationship Specialty Start Date End Date Agnes Diaz MD [address] [place] [address] PCP - General Family Medicine 01/12/21 Scott Pal MD [address] [address] Referring Orthopedics 06/03/19 Scott Pal MD [address] [address] Home Care Provider Orthopedics 06/03/19 Poppy Garcia MD [address], Desk [address] [place] [address] Primary Staff Physician Cardiology 07/17/18 Aaliyah Herrera MD Handbag Framer 10/27/23 11/25/23 Leonila Triana, CHAD [address] [place] [address] Primary Care Curtain Supervisor 10/30/23 Pin Worker Relationship Specialty Start Date End Date Agnes Diaz MD [address] [place], [place] 804341 PCP - General Family Medicine 01/12/21 Scott Pal MD [address] [address] Referring Orthopedics 06/03/19 Scott Pal MD [address] [address] Home Care Provider Orthopedics 06/03/19 Poppy Garcia MD [address], Desk [address] [place] [address] Primary Staff Physician Cardiology 07/17/18 Provider, MD Aaliyah Handbag Framer 10/27/23 11/25/23 Leonila Triana, RN [address] [place], [place] [id number] Primary Care Curtain Supervisor 10/30/23 Pin Worker Relationship Specialty Start Date End Date Agnes Diaz MD [address] [place], [place] 949671 PCP - General Family Medicine 01/12/21 Scott Pal MD [address] [address] Referring Orthopedics 06/03/19 Scott Pal MD [address] [address] Home Care Provider Orthopedics 06/03/19 Poppy Garcia MD [address], Desk [address] [place] [address] Primary Staff Physician Cardiology 07/17/18 Aaliyah Herrera MD Handbag Framer 10/27/23 11/25/23 Leonila Triana, RN [address] [place], [place] [id number] Primary Care Curtain Supervisor 10/30/23 Pin Worker Relationship Specialty Start Date End Date Agnes Diaz MD [address] [place], [place] 616261 PCP - General Family Medicine 01/12/21 Scott Pal MD [address] [place] [address]36 Referring Orthopedics 06/03/19 Scott Pal MD [address] [place] [address] 14588 Home Care Provider Orthopedics 06/03/19 Poppy Garcia MD [address], Desk [address] [place] [address] Primary Staff Physician Cardiology 07/17/18 Aaliyah Herrera MD Handbag Framer 10/27/23 11/25/23 Leonila Triana, CHAD [address] [place], [place] [id number] Primary Care Curtain Supervisor 10/30/23 Pin Worker Relationship Specialty Start Date End Date Agnes Diaz MD [address] [place] [address] PCP - General Family Medicine 01/12/21 Scott Pal MD [address] [place] [address] 26848 Referring Orthopedics 06/03/19 Scott Pal MD [address] [place] [address] 14348 Home Care Provider Orthopedics 06/03/19 Poppy Garcia MD [address], Desk [address] [place] [address] Primary Staff Physician Cardiology 07/17/18 Provider, MD Aaliyah Handbag Framer 10/27/23 11/25/23 Leonila Triana, CHAD [address] [place], [place] [phone] Primary Care Curtain Supervisor 10/30/23 Pin Worker Relationship Specialty Start Date End Date Agnes Diaz MD [address] [place] [address] PCP - General Family Medicine 01/12/21 Scott Pal MD [address] [place] [address] 26154 Referring Orthopedics 06/03/19 Scott Pal MD [address] [place] [address] 10491 Home Care Provider Orthopedics 06/03/19 Poppy Garcia MD [address], Desk [address] [place] [address] Primary Staff Physician Cardiology 07/17/18 Pin Worker Relationship Specialty Start Date End Date Agnes Diaz MD [address] [place], [place] 692791 PCP - General Family Medicine 01/12/21 Scott Pal MD [facility] [address] [address] Referring Orthopedics 06/03/19 Scott Pal MD [facility] [address] [address] Home Care Provider Orthopedics 06/03/19 Poppy Garcia MD [address], Desk [address] [place] [address] Primary Staff Physician Cardiology 07/17/18 Pin Worker Relationship Specialty Start Date End Date Agnes Diaz MD [address] [place] [address] PCP - General Family Medicine 01/12/21 Scott Pal MD [address] [place] [address] 6[address]67 Referring Orthopedics 06/03/19 Scott Pal MD [address] [place] [address] 79666 Home Care Provider Orthopedics 06/03/19 Poppy Garcia MD [address], Gianlucak [address] [place] [address] Primary Staff Physician Cardiology 07/17/18 Pin Worker Relationship Specialty Start Date End Date Agnes Diaz MD [address] [place] [address] PCP - General Family Medicine 01/12/21 Scott Pal MD [address] [address] Referring Orthopedics 06/03/19 Scott Pal MD [address] [address] Home Care Provider Orthopedics 06/03/19 Poppy Garcia MD [address], Desk [address] [place] [address] Primary Staff Physician Cardiology 07/17/18 Pin Worker Relationship Specialty Start Date End Date Agnes Diaz MD [address] [place] [address] PCP - General Family Medicine 01/12/21 Scott Pal MD [facility] [address] [address] Referring Orthopedics 06/03/19 Scott Pal MD [address] [address] Home Care Provider Orthopedics 06/03/19 Poppy Garcia MD [address], Desk [address] [place] [address] Primary Staff Physician Cardiology 07/17/18 Pin Worker Relationship Specialty Start Date End Date Agnes Diaz MD [address] [place] [address] PCP - General Family Medicine 01/12/21 Scott Pal MD [address] [address] Referring Orthopedics 06/03/19 Scott Pal MD [address] [address] Home Care Provider Orthopedics 06/03/19 Caroline Fitzgerald, PT [address] [place] [address] Coil Taper Acute Care 06/07/19 05/17/23 Poppy Garcia MD [address], Desk [address] [place] [address] Primary Staff Physician Cardiology 07/17/18 Pin Worker Relationship Specialty Start Date End Date Agnes Diaz MD [address] [place] [address] PCP - General Family Medicine 01/12/21 Scott Pal MD [address] [address] Referring Orthopedics 06/03/19 Scott Pal MD [address] [address] Home Care Provider Orthopedics 06/03/19 Poppy Garcia MD [address], Desk [address] [place] [address] Primary Staff Physician Cardiology 07/17/18 Pin Worker Relationship Specialty Start Date End Date Agnes Diaz MD [address] [place] [address] PCP - General Family Medicine 01/12/21 Scott Pal MD [address] [address] Referring Orthopedics 06/03/19 Scott Pal MD [address] [address] Home Care Provider Orthopedics 06/03/19 Poppy Garcia MD [address], Desk [address] [place] [address] Primary Staff Physician Cardiology 07/17/18 Pin Worker Relationship Specialty Start Date End Date Agnes Diaz MD [address] [place], [place] 034841 PCP - General Family Medicine 01/12/21 Scott Pal MD [address] [address] Referring Orthopedics 06/03/19 Scott Pal MD [address] [address] Home Care Provider Orthopedics 06/03/19 Poppy Garcia MD [address], Desk [address] [place] [address] Primary Staff Physician Cardiology 07/17/18 Pin Worker Relationship Specialty Start Date End Date Agnes Diaz MD [address] [place] [address] PCP - General Family Medicine 01/12/21 Scott Pal MD [address] [address] Referring Orthopedics 06/03/19 Scott Pal MD [address] [address] Home Care Provider Orthopedics 06/03/19 Poppy Garcia MD [address], Desk [address] [place], [place] 1388395 Primary Staff Physician Cardiology 07/17/18 Pin Worker Relationship Specialty Start Date End Date Agnes Diaz MD [address] [place] [address] PCP - General Family Medicine 01/12/21 Scott Pal MD [address] 239[address] Referring Orthopedics 06/03/19 Scott Pal MD [address] [address] Home Care Provider Orthopedics 06/03/19 Poppy Garcia MD [address], Desk [address] [place], [place] 1909[address]95 Primary Staff Physician Cardiology 07/17/18 Pin Worker Relationship Specialty Start Date End Date Agnes Diaz MD [address] [place] [address] PCP - General Family Medicine 01/12/21 Scott Pal MD [address] [address] Referring Orthopedics 06/03/19 Scott Pal MD [address] [address] Home Care Provider Orthopedics 06/03/19 Poppy Garcia MD [address], PAYMILLk [address] [place] [address] Primary Staff Physician Cardiology 07/17/18 Pin Worker Relationship Specialty Start Date End Date Agnes Diaz MD [address] [place] [address] PCP - General Family Medicine 01/12/21 Scott Pal MD [address] [address] Referring Orthopedics 06/03/19 Scott Pal MD [address] [address] Home Care Provider Orthopedics 06/03/19 Poppy Garcia MD [address], Desk [address] [place], [place] 9183695 Primary Staff Physician Cardiology 07/17/18 Pin Worker Relationship Specialty Start Date End Date Agnes Diaz MD [address] [place] [address] PCP - General Family Medicine 01/12/21 Scott Pal MD [address] [place] [address] 90662 Referring Orthopedics 06/03/19 Scott Pal MD [address] [place] [address] 12981 Home Care Provider Orthopedics 06/03/19 Poppy Garcia MD [address], Desk [address] [place] [address] Primary Staff Physician Cardiology 07/17/18 Pin Worker Relationship Specialty [place] [address] [place] [address] PCP - General Family Medicine 01/12/21 Scott Pal MD [address] [place] [address] 60762 Referring Orthopedics 06/03/19 Scott Pal MD [address] [place] [address] 07238 Home Care Provider Orthopedics 06/03/19 Poppy Garcia MD [address], Desk [address] [place], [place] 9185295 Primary Staff Physician Cardiology 07/17/18 Pin Worker Relationship Specialty Start Date End Date Agnes Diaz MD [address] [place] [address] PCP - General Family Medicine 01/12/21 Scott Pal MD [facility] [address] [address] Referring Orthopedics 06/03/19 Scott Pal MD [address] [place] [address] 42572 Home Care Provider Orthopedics 06/03/19 Poppy Garcia MD [address], Desk [address] [place] [address] Primary Staff Physician Cardiology 07/17/18 Pin Worker Relationship Specialty Start Date End Date Agnes Diaz MD [address] [place] [address] PCP - General Family Medicine 01/12/21 Scott Pal MD [address] [place] [address] 11377 Referring Orthopedics 06/03/19 Scott Pal MD [address] [place] [address] 72585 Home Care Provider Orthopedics 06/03/19 Poppy Garcia MD [address], Desk [address] [place] [address] Primary Staff Physician Cardiology 07/17/18 Pin Worker Relationship Specialty Start Date End Date Agnes Diaz MD [address] [place] [address] PCP - General Family Medicine 01/12/21 Scott Pal MD [address] [place] [address] 46165 Referring Orthopedics 06/03/19 Scott Pal MD [address] [place] [address] 63003 Home Care Provider Orthopedics 06/03/19 Poppy Garcia MD [address], Desk [address] [place] [address] Primary Staff Physician Cardiology 07/17/18 Pin Worker Relationship Specialty Start Date End Date Agnes Diaz MD [address] [place] [address] PCP - General Family Medicine 01/12/21 Scott Pal MD [address] [place] [address] 46224 Referring Orthopedics 06/03/19 Scott Pal MD [address] [place] [address] 57334 Home Care Provider Orthopedics 06/03/19 Poppy Garcia MD [address], Desk [address] [place] [address] Primary Staff Physician Cardiology 07/17/18 Pin Worker Relationship Specialty Start Date End Date Agnes Diaz MD [address] [place] [address] PCP - General Family Medicine 01/12/21 Scott Pal MD [address] [place] [address]678 Referring Orthopedics 06/03/19 Scott Pal MD [address] [place] [address] 9[address]41 Home Care Provider Orthopedics 06/03/19 Poppy Garcia MD [address], Desk [address] [place] [address] Primary Staff Physician Cardiology 07/17/18 Mitchel Walters RN [address] [place] [address] [id number] Primary Care Curtain Supervisor 03/29/24 Pin Worker Relationship Specialty Start Date End Date Agnes Diaz MD [address] [place] [address] PCP - General Family Medicine 01/12/21 Scott Pal MD [address] [place] [address] 96592 Referring Orthopedics 06/03/19 Scott Pal MD [address] [place] [address] 04941 Home Care Provider Orthopedics 06/03/19 Poppy Garcia MD [address], Desk [address] [place] [address] Primary Staff Physician Cardiology 07/17/18 Mitchel Walters RN [address] [place] [address] Primary Care Curtain Supervisor 03/29/24 Pin Worker Relationship Specialty Start Date End Date Agnes Diaz MD [address] [place] [address] PCP - General Family Medicine 01/12/21 Scott Pal MD [facility] [address] [address] Referring Orthopedics 06/03/19 Scott Pal MD [address] [place] [address] 50664 Home Care Provider Orthopedics 06/03/19 Poppy Garcia MD [address] [facility] [place] [address] Primary Staff Physician Cardiology 07/17/18 Mitchel Walters, CHAD [address] [place] [address] Primary Care Curtain Supervisor 03/29/24 Marilia Orozco APRN.CNP [address] [place], [place] 966741 Handbag Framer Family Medicine 04/06/24 Pin Worker Relationship Specialty Start Date End Date Agnes Diaz MD [address] [place], [place] 973961 PCP - General Family Medicine 01/12/21 Scott Pal MD [address] [address] Referring Orthopedics 06/03/19 Scott Pal MD [address] [address] Home Care Provider Orthopedics 06/03/19 Poppy Garcia MD [address], Adan [address] [place], [place] 4016995 Primary Staff Physician Cardiology 07/17/18 Mitchel Walters, CHAD [address] [place], [place] [phone] Primary Care Curtain Supervisor 03/29/24 PodlogMarilia stuart APRN.VP CUSTOMER SERVICE [address] [place] [address] Handbag Framer Family Medicine 04/06/24 Pin Worker Relationship Specialty Start Date End Date Macario Hopkins MD [address] [facility] [place] [address] PCP - General 04/01/11 Pin Worker Relationship Specialty Start Date End Date Agnes Diaz MD [address] [place] [address] PCP - General Family Medicine 01/12/21 Scott Pal MD [address] [address] Referring Orthopedics 06/03/19 Scott Pal MD [address] 8[address]60 Home Care Provider Orthopedics 06/03/19 Poppy Garcia MD [address], Desk [address] [place] [address] Primary Staff Physician Cardiology 07/17/18 PodlogMarilia stuart APRN.VP CUSTOMER SERVICE [address] [place] [address] [facility] 04/06/[facility] Pin Worker Relationship Specialty Start Date End Date Agnes Diaz MD [address] [place], [place] 968561 PCP - General Family Medicine 01/12/21 Scott Pal MD [address] [phone] Referring Orthopedics 06/03/19 Scott Pal MD [address] [phone] Home Care Provider Orthopedics 06/03/19 Poppy Garcia MD [address], Desk [address] [place] [address] Primary Staff Physician Cardiology 07/17/18 PodlogarMarilia APRN.VP CUSTOMER SERVICE [address] [place] [address] [facility] 04/06/24 Team Status: Inactive Member Role Status [...] April 16, 2024 End: April 16, 2024 Pin Worker Relationship Specialty Start Date End Date Agnes Diaz MD [address] [place] [address] PCP - General Family Medicine 01/12/21 Scott Pal MD [address] [facility] [address] [place] [address] Referring Orthopedics 06/03/19 Scott Pal MD [address] [address] Home Care Provider Orthopedics 06/03/19 Poppy Garcia MD [address], Desk [address] [place] [address] Primary Staff Physician Cardiology 07/17/18 PodlogarMarilia APRN.VP CUSTOMER SERVICE [address] [place] [address] Handbag Framer Family Medicine 04/06/24 Amanda Cutris APRN.VP CUSTOMER SERVICE [address] [place] [address] 312461 Handbag Framer Family [facility] 07/22/24 Pin Worker Relationship Specialty Start Date End Date Agnes Diaz MD [address] [place] [address] 92567 PCP - General Family Medicine 01/12/21 Scott Pal MD [address] [place] [address] 05296 Referring Orthopedics 06/03/19 Scott Pal MD [address] [place] [address] 06346 Home Care Provider Orthopedics 06/03/19 Poppy Garcia MD [address], Desk [address] [place] [address] Primary Staff Physician Cardiology 07/17/18 Podlogar, SELENE Capellan.VP CUSTOMER SERVICE [facility] [place] [address] Handbag Framer Family Medicine 04/06/24 Amanda Curtis APRN.VP CUSTOMER SERVICE [address] [place] [address] Handbag Framer Family [facility] 07/22/24 Pin Worker Relationship Specialty Start Date End Date Agnes Diaz MD [address] [place] [address] PCP - General Family Medicine 01/12/21 Scott Pal MD [address] [place] [address] [phone] Referring Orthopedics 06/03/19 Scott Pal MD [address] [place] [address] 21902 Home Care Provider Orthopedics 06/03/19 Poppy Garcia MD [address] [place], [place] 0540895 Primary Staff Physician Cardiology 07/17/18 PodlogarMarilia APRN.VP CUSTOMER SERVICE [address] [place] [address] Handbag Framer Family Medicine 04/06/24 Amanda Curtis APRN.VP CUSTOMER SERVICE [address] [place], [place] [id number] Handbag Framer Family [facility] 07/22/24 Pin Worker Relationship Specialty Start Date End Date Agnes Diaz MD [address] [place], [place] 29147691 PCP - General Family Medicine 01/12/21 Scott Pal MD [address] [address] Referring Orthopedics 06/03/19 Scott Pal MD [address] [address] Home Care Provider Orthopedics 06/03/19 Poppy Garcia MD [address] [facility] [place], [place] 57510[address] Primary Staff Physician Cardiology 07/17/18 PodlogarMarilia APRN.VP CUSTOMER SERVICE [address] [place] [address] Handbag Framer Family Medicine 04/06/24 Amanda Curtis APRN.VP CUSTOMER SERVICE [address] [place], [place] [id number] Handbag Framer Family Medicine 07/22/24 Pin Worker Relationship Specialty Start Date End Date Agnes Diaz MD [address] [place] [address] PCP - General Family Medicine 01/12/21 Scott Pal MD [address] [address]37 Referring Orthopedics 06/03/19 Scott Pal MD [address] [address] Home Care Provider Orthopedics 06/03/19 Poppy Garcia MD [address], Desk [address] [place] [address] Primary Staff Physician Cardiology 07/17/18 Podlogar, SELENE Capellan.VP CUSTOMER SERVICE [address] [place], [place] 511261 [facility] 04/06/24 Amanda Curtis APRN.VP CUSTOMER SERVICE [address] [place], [place] 475201 [facility] 07/22/24 Pin Worker Relationship Specialty Start Date End Date Agnes Diaz MD [address] [place], [place] 334801 PCP - General Family Medicine 01/12/21 Scott Pal MD [address] [phone] Referring Orthopedics 06/03/19 Scott Pal MD [address] [address] Home Care Provider Orthopedics 06/03/19 Poppy Garcia MD [address], Desk [address] [place] [address] Primary Staff Physician Cardiology 07/17/18 Podlogar, SELENE Capellan.VP CUSTOMER SERVICE [address] [place] [address] Handbag Framer Family Medicine 04/06/24 Amanda Curtis APRN.VP CUSTOMER SERVICE [address] [place] [address] [facility] 07/22/24 Team Status: Inactive Member Role Status Dates Dr. Salvador Diaz MD Primary Care Provider Acti ve Start: September 17, 2024 End: September 17, 2024 Dr. Salvador Diaz MD Referring Provider Active Start: September 17, 2024 End: September 17, 2024 Dr. Troy Valentino MD Attending Provider Active Start: September 17, 2024 End: September 17, 2024 Pin Worker Relationship Specialty Start Date End Date Agnes Diaz MD [address] [place], [place] 550971 PCP - General Family Medicine 01/12/21 Scott Pal MD [address] [address] Referring Orthopedics 06/03/19 Scott Pal MD [address] [address] Home Care Provider Orthopedics 06/03/19 Poppy Garcia MD [address], Adan [address] [place], [place] 9844495 Primary Staff Physician Cardiology 07/17/18 PodlogarMarilia APRN.VP CUSTOMER SERVICE [address] [place], [place] 690911 [facility] 04/06/24 Team Status: Inactive Member Role Status [...] Provider Active St art: October 07, 2024 Pin Worker Relationship Specialty Start Date End Date Agnes Diaz MD [address] [place], [place] 810671 PCP - General Family Medicine 01/12/21 Scott Pal MD [address] [address] Referring Orthopedics 06/03/19 Scott Pal MD [address] 8[address] Home Care Provider Orthopedics 06/03/19 Poppy Garcia MD [address], Adan [address] [place], [place] 6942595 Primary Staff Physician Cardiology 07/17/18 PodlogarMarilia APRN.CNP [address] [place], [place] 912881 Handbag Framer Family Medicine 04/06/24 Pin Worker Relationship Specialty Start Date End Date Agnes Diaz MD [address] [place], [place] 468031 PCP - General Family Medicine 01/12/21 Scott Pal MD [address] [address] Referring Orthopedics 06/03/19 Scott Pal MD [address] [address] Home Care Provider Orthopedics 06/03/19 Poppy Garcia MD [address], Desk [address] [place] [address] Primary Staff Physician Cardiology 07/17/18 PodlogarMarilia APRN.VP CUSTOMER SERVICE [address] [place] [address] Handbag Framer Family Medicine 04/06/24 Pin Worker Relationship Specialty Start Date End Date Agnes Diaz MD [address] [place] [address] PCP - General Family Medicine 01/12/21 Scott Pal MD [address] [address] Referring Orthopedics 06/03/19 Scott Pal MD [address] 8[address] Home Care Provider Orthopedics 06/03/19 Poppy Garcia MD [address], Desk [address] [place], [place] [id number] Primary Staff Physician Cardiology 07/17/18 PodlogarMarilia APRN.VP CUSTOMER SERVICE [address] [place] [address] Handbag Framer Family [facility] 04/06/24 Amanda Curtis APRN.VP CUSTOMER SERVICE [address] [place] [address] Handbag Framer Family [facility] 10/10/24 Goals (unrecognized section and content) Goals may be documented in a n alternate sectionGoals may be documented in an alternate section (unrecognized sect ion and content) No Status Records FoundNo Status Records FoundNo Status Records FoundNo Status Records FoundNo Status Records FoundNo Status Records Found INFORMATION SOURCE (unrecogn ized section and content) DATE CREATED AUTHOR 01/10/2023 [facility] DATE CREATED AUTHOR AUTHOR'S ORGANIZ ATION 01/16/2024 [facility] DATE CREATED AUTHOR AUTHOR'S ORGANIZ ATION 01/22/2024 [facility] DATE CREATED AUTHOR AUTHOR'S ORGANIZ ATION 09/27/2024 [facility] DATE CREATED AUTHOR AUTHOR'S ORGANIZ ATION 10/09/2024 [facility] DATE CREATED AUTHOR AUTHOR'S ORGANIZ ATION 10/21/2024 [facility] FOR RECORDS PERTAINING TO PATIENTS WHO ARE [...] BE BASED ON THE PRIMARY CLINICAL RECORDS. [employer] provides no warranty or guarantee of the accuracy or completeness of information in this document.
[2024-10-22 06:06] LABS: Magnesium 1.5 mg/dL (1.5-2.2)
[2024-10-22] MEDS: 0.9% Normal Saline (1000mL) 1,000 ML 100 ML IV ×2 (07:12→21:00)
[2024-10-22 08:22] LABS: Cholesterol 121 mg/dL (<=200); High Density Lipoprotein 26 mg/dL; Low Density Lipoprotein Calc. 41 mg/dL; Triglycerides 269 mg/dL; Very Low Density Lipoprotein 54 mg/dL (5-40); cholesterol:hdl ratio screen 4.58
[2024-10-22] MEDS: Pantoprazole Sodium 40 MG in 0.9% Normal Saline (100mL MB+) 100 ML 330 MG IV (11:46)
[2024-10-22] MEDS: 0.9% Saline Lock 10 ML Syringe IV (14:03)
--- NOTE | 2024-10-22 14:32 | CASEMGMT ---
CHAD HENSON Assessment: Face to Face with pt for initial transition planning/care coordination assessment. CHAD HENSON introduced self and role at [facility], pt voices understanding and consents to assessment. Pt is A&O x4 and answers all questions appropriately at this time. Pt lying in bed in no distress. Care providers, pharmacy, and demographics verified/updated. Admitting Dx: lactic acidosis, n/v and marivel Strata Score: 2 PCP:Joe Specialists:Jayce, pain mgmt; [facility] main for pulm and for CPAP but cannot recall name. Preferred Pharmacy: [facility] Insurance: [facility], [employer] Prescription Benefit: yes LNOK: Estefania Cohen, ; Iliana Kelly, sister Living Arrangements: Pt lives alone in a two story home with 2 steps to enter in the front and one step in garage. Pt reports he is I in ADL/IADLs and denies concerns at home. Pt reports he eats out often. Pt [place]. Transportation: Pt drives self and denies concerns with transportation. DME:HH shower, CPAP, walker, cane, shower chair HHC/SNF: Pt has had HHC in the past but cannot recall the name of the agency. Pt denies SNF stays. Pt states no concerns with going home at time of dc. Pt states no further concerns/needs. CM to follow. Advised pt to ask CM if any further questions/concerns/needs arise, voices understanding. Pt Goal: Home Plan: Home Jacquelin BONILLA CM
[2024-10-22 14:51] LABS: Bacteria 0 SEEN /hpf (None Seen); Color, Urine Yellow (Yellow); Glucose, Dipstick Normal (Normal); Ketone-Dipstick Negative (Negative); Leukocyte Esterase-Dipstick Negative /ul (Negative); Mucous, Urine 0 SEEN /hpf (<or=2+); Nitrite-Dipstick Negative (Negative); Occult Blood-Urine 10 /ul (Negative); Protein-Dipstick 30 mg/dl (Negative); Red Blood Cells-Urine 0 SEEN /hpf (0-5); Urine Bilirubin Dipstick Negative (Negative); Urine Clarity Clear (Clear); Urine Urobilinogen 4 mg/dl (Normal); Urine pH 6.5 (5.0 - 8.0); White Blood Cells 0 SEEN /hpf (0-5)
[2024-10-22 15:42] LABS: Squamous Epithelial Cells - UA 0-5 SEEN /hpf (0-5)
--- NOTE | 2024-10-22 16:16 | CASEMGMT ---
Social Work- SW added pt dtr and HCPOA Dr Xiao Kessler [phone] of [place], [place] to contacts per pt request. JUAN DIEGO Carpenter
--- NOTE | 2024-10-22 16:32 | CHAPLAIN ---
Type of Pastoral Visit _x__ Initial Visit ___ Follow-up Visit ___ On-call Visit ___ General Patient Visit ___ Spiritual Assessment ___ Family Conference ___ Bereavement ___ Rapid Response ___ Code Blue ___ Other (describe below) Pastoral Care Referral From _x__ Patient ___ Family ___ Nurse ___ Physician ___ Agility Instructor ___ Cloth Bleaching Range Operator Chief ___ Other (describe below) Sacrament/Intervention _x__ Active listening ___ Anointing ___ Advent ___ Bereavement ___ Communion _x__ Ijeoma exploration ___ _x__ Life review _x__ Prayer ___ Reconciliation ___ Sacrament of Sick _x__ Supportive presence ___ Wedding ___ Other (describe below) Pastoral Comments 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
--- NOTE | 2024-10-22 18:18 | EX.PCM.CON.G ---
HPI Consult Data Date of Consult: 10/22/24 HPI Narrative Reason for Consultation: Fever HPI Narrative: FRAN PAREKH, is a 79 M who presented to the ED with nausea and vomiting for the last hour or 2 and feeling poorly. No abdominal pain, chest pain, cough, dyspnea. He states he felt like he was sweating. He EMS was called because he felt poorly. EMS checked his temperature of 102.5, the patient did not know he had a fever prior to them checking. In the ED his white blood cell count was stable. He was noted to have a fever of up to 103 in the emergency room. Currently his fever is 100.4. His LFTs, amylase lipase have all been normal. Patient says that he has not been eating well for the past 2 days due to abdominal pain with nausea vomiting. GI history: [facility] hospitalization 03.26.24 - 03.28.24 dizziness - consulted for pancreatitis abd/pelvis CT 03.26.24 Lobulated 6 cm pancreatic tail hypoattenuating, cystic appearing lesion previously measuring only up to 3 cm. Cystic neoplastic process is not excluded. Severe distal colonic diverticulosis without focus of diverticulitis. 3 cm exophytic anterior right interpolar renal lesion which does not measure simple fluid attenuation. Recommend nonemergent follow-up renal ultrasound to better characterize as solid neoplastic process is not 6excluded. Gall Bladder US 03.26.24 Fatty infiltration of the liver. MRCP 03.26.24 1. Normal gallbladder and biliary tree. 2. Multiple pancreatic cysts involving the tail of the pancreas. ERCP 03.27.24 The entire main bile duct and left main hepatic duct were dilated, with a stone causing an obstruction. Choledocholithiasis was found. Complete removal was accomplished by biliary sphincterotomy and balloon extraction. A pancreatic sphincterotomy was performed. The ventral pancreatic duct was swept and debris was found. A biliary sphincterotomy was performed. The biliary tree was swept. One temporary stent was placed into the common bile duct. OV 12 pt reports that he is feeling well overall and denies GI symptoms of concern at this time. Pt states that he has not had any symptoms since hospitalization. Would like to know when his stent will be removed. ERCP 07.04.24 Mucosal changes in the duodenum. The ampulla appeared somewhat abnormal. Biopsies were taken with a cold forceps for histology in the ampulla. Choledocholithiasis was found. Complete removal was accomplished by biliary sphincterotomy and balloon extraction. A biliary sphincterotomy was performed. The biliary tree was swept. One stent was removed from the biliary tree. Duodenum, ampulla, biopsy: - Fragments of inflamed small intestinal mucosa with focal low dysplasia and reactive changes ? see Comment. - Focal granulation tissue consistent with ulceration - IHC for CMV (cytomegalovirus) is negative (performed at [facility]) - IHC for p53 is wild-type. - IHC for Ki67 is not significantly increased ERCP/EGD 6.9.25: -One 10 Fr by 5 cm temporary stent was placed 5 cm into the common bile duct. Bile flowed through the stent. The stent was in good position. A standard esophagogastroduodenoscopy scope was used for the examination of the upper gastrointestinal tract. The scope was passed under direct vision through the upper GI tract. Localized moderate mucosal changes characterized by scalloping were found in the ampulla. - Coagulation for destruction of remaining portion of lesion in the ampulla using hot biopsy forceps through the ERCP scope was successful. The polyp was removed with a piecemeal technique using a hot biopsy forceps. The polypectomy was performed through the ERCP scope. Resection and retrieval were complete. [facility] Medical History Carpal tunnel syndrome on both sides Cancer Wears glasses Thyroid disease Shingles Inguinal hernia Cardiology follow-up encounter History of stress test Choledocholithiasis Current use of correction 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 Elevated liver enzymes Pancreatic mass High cholesterol Hx of gastroesophageal reflux (GERD) Hypothyroidism Hypertension Home Medications ?Medication ?Instructions ?Recorded ?Last Taken ?Type lisinopril 40 mg tablet 40 mg PO DAILY blood pressure 01/31/13 10/06/24 History atorvastatin 40 mg tablet 40 mg PO QHS cholesterol #90 09/05/16 10/06/24 Rx TABLETS gabapentin 300 mg capsule 300 mg PO QHS nerve pain 10/22/23 10/06/24 History metoprolol succinate 50 mg 50 mg PO DAILY blood pressure 10/22/23 10/06/24 History tablet,extended release 24 hr apixaban 5 mg tablet (Eliquis) 5 mg PO BID blood thinner 03/26/24 10/03/24 History hydrochlorothiazide 25 mg tablet 25 mg PO DAILY reduce fluid 03/26/24 10/06/24 History Held on 10/21/24. Instructions: does not think it does much levothyroxine 125 mcg tablet 125 mcg PO DAILY disorder of 03/26/24 10/06/24 History thyroid gland aspirin 81 mg tablet,delayed 81 mg PO DAILY 08/31/24 10/03/24 History release (Adult Aspirin Regimen) multivitamin (Daily Multi-Vitamin 1 tab PO DAILY 08/31/24 10/06/24 History tablet) Allergy/AdvReac Type Severity Reaction Status Date / Time azithromycin (From Zithromax) Allergy Itching Verified 10/21/24 23:18 bee venom protein (honey bee) AdvReac Swelling Verified 10/21/24 23:18 venom-wasp (wasps) AdvReac Swelling Verified 10/21/24 23:18 Surgical History History of total right hip arthroplasty S/P carpal tunnel release History of tonsillectomy History of ERCP Social History Smoking Status: Never smoker ROS Constitutional Constitutional: Denies fatigue, fever(s), poor appetite, weight gain or weight loss Gastrointestinal Gastrointestinal: Denies belching, bloating, change in bowel habits, change in stool character, chewing difficulty, coffee ground emesis, constipation, cramping, diarrhea, dyspepsia, dysphagia, early satiety, excessive flatus, fecal incontinence, heartburn, hematemesis, hematochezia, hemorrhoids, loose stools, melena, nausea, odynophagia, rectal bleeding, tenesmus, vomiting or weight changes Physical Exam Const alert, oriented x3, no apparent distress and healthy appearing General Appearance: cooperative GI normal to inspection, nondistended, normoactive bowel sounds, soft to palpation, non-tender and non-distended Percussion: normal to percussion Rectal Exam: deferred Lab / Micro Data 10/22/24 00:35 10/22/24 00:35 Labs: Laboratory Results - last 24 hr 10/22/24 00:35: WBC 10.6, RBC 4.38 L, Hgb 13.8, Hct 41.2, MCV 94.1 H, MCH 31.5, MCHC 33.5, RDW Std Deviation 44.9 H, RDW Coeff of Gisella 13.1, Plt Count 197, MPV 9.8, Immature Gran % (Auto) 0.500, Neut % (Auto) 88.6 H, Lymph % (Auto) 4.8 L, [place] % (Auto) 5.8, Eos % (Auto) 0.1, Baso % (Auto) 0.2, Absolute Neuts (auto) 9.4 H, Absolute Lymphs (auto) 0.51 L, Nucleated RBC % 0, PT 15.3 H, INR 1.2, APTT 27.9, Sodium 140, Potassium 4.0, Chloride 104, Carbon Dioxide 23.7, Anion Gap 13, BUN 28 H, Creatinine 1.86 H, Estim Creat Clear Calc 43.92 L, Est GFR (MDRD) Non-Af 36 L, BUN/Creatinine Ratio 15.2, Glucose 189 H, Lactic Acid 2.3 H*, Calcium 8.5, Magnesium 1.5, Total Bilirubin 0.75, AST 28, ALT 33, Alkaline Phosphatase 93, Total Protein 6.2, Albumin 3.4, Globulin 2.8, Albumin/Globulin Ratio 1.2, Triglycerides 269 H, Cholesterol 121, LDL Cholesterol, Calc 41, VLDL Cholesterol 54 H, HDL Cholesterol 26 L, Cholesterol/HDL Ratio 4.58, Lipase 35, TSH 1.840 10/22/24 05:14: Lactic Acid 1.7 10/22/24 14:20: Urine Color Yellow, Urine Clarity Clear, Urine pH 6.5, Ur Specific [place] 1.010, Urine Protein 30 H, Urine Glucose (UA) Normal, Urine Ketones Negative, Urine Occult Blood 10 H, Urine Nitrite Negative, Urine Bilirubin Negative, Urine Urobilinogen 4 H, Ur Leukocyte Esterase Negative, Urine RBC 0 SEEN, Urine WBC 0 SEEN, Ur Squamous Epith Cells 0-5 SEEN, Urine Bacteria 0 SEEN, Urine Mucus 0 SEEN Rhythm Strip Rhythm Strip: Sinus Rhythm Rate: 70 Ectopy: PAC(s) Imaging Radiology Impression Chest X-Ray 10/22/24 00:48 IMPRESSION: No evidence for acute abnormality. [id number]Pelvis CT 10/22/24 04:02 IMPRESSION: Unchanged benign chronic calcified 1.8 cm lesion in the anterior mediastinum. Small sliding hiatal hernia. Diffuse thickening of the stomach suggestive of gastritis. Mild hepatic steatosis. CBD stent is noted. Pneumobilia is noted. Unchanged multiple cystic lesions of the pancreatic tail. Scattered right renal simple cysts are noted with the largest measuring 3.5 cm. Uncomplicated colonic diverticulosis. Unremarkable metallic prosthesis of the right hip. Mild diffuse spondylosis. Unchanged mild chronic compression deformity of T11 vertebral body. Decreased diffuse thickening of the gallbladder. Reading Location: [id number] MRCP 10/22/24 04:47 IMPRESSION: There is a stent present in the common bile duct. Trace amount of air is visible within the gallbladder, secondary to instrumentation. There are multiple simple cysts in the tail of the pancreas with the largest measuring 3.6 x 2.6 cm. Right renal cysts are noted with the largest partly visible at the end lower pole measuring 3.2 cm. Reading Location: [facility] Assessment & Plan Assessment/Plan (1) Fever: QUALIFIERS: Fever type: unspecified Qualified Code(s): R50.9 - Fever, unspecified PLAN: Fever of unknown origin at this time. Blood cultures are pending. He is on antibiotic therapy. This could possibly be fever from coagulation effect due to hot the biopsy forceps. It would be unusual for it to happen 15 days later after the procedure but anything is possible if we cannot determine the etiology of his fever. He also possibly could have been experiencing acute gastroenteritis that causes fever. He had an MRCP did not show any signs of obstructive disease which were I would expect if he had a fever secondary to decreased flow in his bile duct from cholangitis. Recommend continue antibiotics for approximately 14 days with Augmentin once he gets discharged from the hospital for possible cauterization at ampullectomy site causing local fevers and possible underlying infection. Charges/Coding Visit Charges Inpatient E&M: 78169 Init Hosp L3
--- NOTE | 2024-10-22 18:29 | PCM.HOSP.N ---
Hospitalist Note Patient was seen and examined today, I discussed his care with gastroenterology, patient has been afebrile during the day today, his MRCP did not show any significant abnormality that would account for why he is running a temperature. Patient complains of some mild abdominal pain today. I feel the best course of action would be to keep the patient on antibiotics for now and await his blood culture results, if these are negative, antibiotics may be stopped.
[2024-10-22] MEDS: Morphine 2 MG/ML Syringe IV (23:43)
[2024-10-23 05:15] VITALS: BMI 42.7
[2024-10-23 05:25] VITALS: BP 144/58; PULSE 60; RESP 15; TEMP 36.9; O2SAT 95
[2024-10-23] MEDS: Piperacil/Tazobactam 3.375 GM in 0.9% Normal Saline (50mL MB+) 50 ML IV ×3 (05:26→21:07)
[2024-10-23 05:52] LABS: Absolute Lymphocyte Count 1.75 X10^3/uL (0.83-4.51); Absolute Neutrophil Count 7.1 X10^3/uL (2.0-7.7); Basophil# 0.02 X10^3/uL; Basophil% 0.2 % (0-1); Eosinophil# 0.02 X10^3/uL; Eosinophils% 0.2 % (0-5); Hematocrit 40.8 % (40-54); Hemoglobin 13.6 g/dL (13.0-16.5); Lymphocyte # 1.75 X10^3/ul (0.83-4.51); Lymphocyte % 17.6 % (19-41); Mean Corp Hgb Conc 33.3 g/dL (32-36); Mean Corpuscular Hgb 31.9 pg (27.0-32.0); Mean Corpuscular Volume 95.8 fL (80-94); Mean Platelet Vol. 9.4 fl (6.2-12.0); Monocyte# 0.97 X10^3/uL; Monocyte% 9.8 % (0-10); NRBC Flagged by Analyzer 0 % (0-5); Neutrophil # 7.12 X10^3/uL (2.7-7.7); Neutrophil % 71.7 % (47-70); Platelet Count 178 K/mm3 (150-450); RBC Distribution Width CV 13.4 % (11.6-14.6); RBC Distribution Width SD 47.3 fl (35.1-43.9); Red Blood Count 4.26 M/mm3 (4.6-6.2); White Blood Count 9.9 K/mm3 (4.4-11.0)
[2024-10-23 06:34] LABS: ALB/GLOB Ratio 1.2 RATIO (0.9-2.4); AST(SGOT) 29 U/L (<=37); Alanine Aminotransfer ALT/SGPT 30 U/L (<=46); Albumin, Serum 3.3 g/dL (3.4-4.8); Alkaline Phosphatase 79 U/L (40-129); Anion Gap 11 (5-15); BUN 21 mg/dL (4-19); BUN/Creat Ratio 11.9 RATIO (10-20); Calcium,Total 7.9 mg/dL (7.6-11.0); Chloride 105 mmol/L (98-108); Creatinine, Serum 1.78 mg/dL (0.70-1.20); EST Glomerular Filtration Rate 38 (>60); Globulin 2.7 g/dL (2.2-4.2); Glucose 125 mg/dL (70-99); Potassium 4.2 mmol/L (3.3-5.1); Protein, Total 5.9 g/dL (5.9-8.4); Sodium Level 140 mmol/L (133-145); Total Bilirubin 0.89 mg/dL (0.00-1.30)
[2024-10-23 06:55] VITALS: O2SAT 93
[2024-10-23 08:50] VITALS: BP 131/58; PULSE 57; RESP 16; TEMP 36.6; O2SAT 93
[2024-10-23] MEDS: Pantoprazole Sodium 40 MG in 0.9% Normal Saline (100mL MB+) 100 ML 330 MG IV (10:14)
--- NOTE | 2024-10-23 14:56 | PCM.PN.HOSP ---
Reason for Visit Reason for Visit: Diagnoses Morbid (severe) obesity due to excess calories (10/22/24) Acidosis, unspecified (10/22/24) Other cholangitis (10/22/24) Obstruction of bile duct (10/22/24) Cyst of pancreas (10/22/24) Acute kidney failure, unspecified (10/22/24) Chronic kidney disease, stage 3a (10/22/24) Bilious vomiting (10/22/24) Nausea with vomiting, unspecified (10/22/24) Fever, unspecified (10/22/24) Body mass index [BMI] 40.0-44.9, adult (10/22/24) Other specified postprocedural states (10/22/24) Subjective Subjective Patient was seen and examined today, he states he feels well, he is not developed a temperature since yesterday. Blood cultures pending Objective Data Objective Data Vital Signs: Vital Signs Temp Pulse Resp BP Pulse Ox O2 Del Method 97.9 F 57 L 16 131/58 H 93 Room Air 10/23/24 08:50 10/23/24 08:50 10/23/24 08:50 10/23/24 08:50 10/23/24 08:50 10/23/24 08:50 Oxygen Delivery Method Room Air Weight: 135.6 kg Body Mass Index (BMI) 42.7 Intake & Output: Intake and Output for Last 24 Hours 10/21/24 10/22/24 10/23/24 23:59 23:59 23:59 Intake Total 0 / 0 1700 / 1700 1200 / 1200 Output Total 250 / 250 Balance 0 / 0 1450 / 1450 1200 / 1200 Lab / Micro Data 10/23/24 05:33 10/23/24 05:33 Labs: Laboratory Results - last 24 hr 10/22/24 14:20: Urine Color Yellow, Urine Clarity Clear, Urine pH 6.5, Ur Specific [place] 1.010, Urine Protein 30 H, Urine Glucose (UA) Normal, Urine Ketones Negative, Urine Occult Blood 10 H, Urine Nitrite Negative, Urine Bilirubin Negative, Urine Urobilinogen 4 H, Ur Leukocyte Esterase Negative, Urine RBC 0 SEEN, Urine WBC 0 SEEN, Ur Squamous Epith Cells 0-5 SEEN, Urine Bacteria 0 SEEN, Urine Mucus 0 SEEN 10/23/24 05:33: WBC 9.9, RBC 4.26 L, Hgb 13.6, Hct 40.8, MCV 95.8 H, MCH 31.9, MCHC 33.3, RDW Std Deviation 47.3 H, RDW Coeff of Gisella 13.4, Plt Count 178, MPV 9.4, Immature Gran % (Auto) 0.500, Neut % (Auto) 71.7 H, Lymph % (Auto) 17.6 L, [place] % (Auto) 9.8, Eos % (Auto) 0.2, Baso % (Auto) 0.2, Absolute Neuts (auto) 7.1, Absolute Lymphs (auto) 1.75, Nucleated RBC % 0, Sodium 140, Potassium 4.2, Chloride 105, Carbon Dioxide 24.0, Anion Gap 11, BUN 21 H, Creatinine 1.78 H, Estim Creat Clear Calc 45.90 L, Est GFR (MDRD) Non-Af 38 L, BUN/Creatinine Ratio 11.9, Glucose 125 H, Calcium 7.9, Total Bilirubin 0.89, AST 29, ALT 30, Alkaline Phosphatase 79, Total Protein 5.9, Albumin 3.3 L, Globulin 2.7, Albumin/Globulin Ratio 1.2 Rhythm Strip Rhythm Strip: Sinus Rhythm Rate: 70 Ectopy: PAC(s) Physical Exam Const alert, oriented x3 and no apparent distress Constitutional Narrative: Patient has class III obesity General Appearance: cooperative, well kempt and well developed Orientation / Consciousness: awake, oriented to person, oriented to place and oriented to time HEENT normocephalic, head/scalp atraumatic and moist oral mucous membranes Head and Scalp: normocephalic Eyes PERRL, EOMs intact bilaterally and conjunctivae normal Neck supple, no JVD, thyroid normal and no carotid bruits General: trachea midline Resp normal respiratory effort, no retractions, no use of accessory muscles and clear to auscultation bilaterally Auscultation: Negative for rales, rhonchi or wheezes Cardio regular rate, regular rhythm, S1 normal heart sound, S2 normal heart sound, no murmurs, no rub and no gallops GI normal to inspection, nondistended, normoactive bowel sounds, soft to palpation, non-tender and non-distended Extremity no clubbing, cyanosis or edema Skin no rashes or lesions noted General Skin Exam: no breakdown Neuro oriented x3, CN's II-XII intact bilaterally, moves all extremities, no focal motor deficits and no sensory deficits noted Sensorium / Orientation: awake and alert Speech: speech normal Psych affect normal Assessment & Plan Assessment/Plan (1) Cholangitis: PLAN: Plan 1. Fever of unknown origin-on admission, the patient was suspected of having cholangitis, this has not been proven, it may be possible for the patient to be discharged home on a total of 5 days of antibiotics, blood culture has not resulted as of yet but the patient peers nontoxic today and states he feels good. #2 nausea and vomiting-etiology unclear, symptoms have resolved at this time #3 dehydration-I do not feel the patient has acute kidney injury, patient's creatinine has to decreased to 1.78 today. #4 chronic use of anticoagulants-patient will resume his apixaban Total clinical time spent by myself addressing the patient's medical issues, reviewing all of his data, and collaborating with patient's care team: 35 minutes Charges/Coding Visit Charges Inpatient E&M: 36869 Subs Hosp L2
[2024-10-23 15:04] VITALS: BP 123/57; PULSE 54; RESP 18; TEMP 36.8; O2SAT 96
[2024-10-23] MEDS: APIXABAN 5 MG TABLET PO (15:16)
--- NOTE | 2024-10-23 18:16 | PCM.PN.BLA ---
Progress Note I saw patient today the patient and he is not have any abdominal pain and has been afebrile since admission. He is tolerating a regular diet without any problems. Physical Exam Const alert, oriented x3, no apparent distress and healthy appearing General Appearance: cooperative GI normal to inspection, nondistended, normoactive bowel sounds, soft to palpation, non-tender and non-distended Percussion: normal to percussion Rectal Exam: deferred Assessment & Plan Assessment/Plan (1) Cholangitis: PLAN: Plan Very pleasant 79-year-old gentleman with fever of unknown origin. His blood cultures have been negative thus far. He has been on IV antibiotics since being in the hospital. If patient continues to be afebrile then he can be transitioned to oral antibiotics to finish at home. He has a follow-up visit with me in about 10 days in the clinic. Visit Charges Inpatient E&M: 98648 Subs Hosp L3
[2024-10-23 21:02] VITALS: BP 139/84; PULSE 65; RESP 18; TEMP 37; O2SAT 96
[2024-10-24 00:01] VITALS: BP 124/65; PULSE 58; RESP 16; TEMP 36.8; O2SAT 96
[2024-10-24 05:48] VITALS: BMI 42.9
[2024-10-24 06:02] VITALS: BP 142/68; PULSE 61; RESP 18; TEMP 36.8; O2SAT 93
[2024-10-24] MEDS: Piperacil/Tazobactam 3.375 GM in 0.9% Normal Saline (50mL MB+) 50 ML IV (06:03)
[2024-10-24 08:09] VITALS: BP 149/69; PULSE 62; RESP 18; TEMP 36.6; O2SAT 95
[2024-10-24] MEDS: Pantoprazole Sodium 40 MG in 0.9% Normal Saline (100mL MB+) 100 ML 330 MG IV (10:41)
--- NOTE | 2024-10-24 12:33 | DCINST_ITS ---
Discharge Instructions Diet Discharge Diet: No restrictions DC O2, CPAP, BIPAP needs Home O2 Discharge instructions: No Dressing / Incision Discharge Activity: Return to Normal Activity Weight Bearing Status: Full weight bearing Follow Up Care Test Results: Test results from this visit will be discussed in further detail at your follow- up appointment, if applicable. Discharge Plan Admission Admit Date/Time: 10/22/24 04:38 Primary Reason for Your Visit: Fever of unknown origin Attending Provider: Ifeanyi Tena Primary Care Provider: Salvador Diaz Consulting Providers: Werner Nunn Discharge Orders/Prescriptions Prescriptions: Continued lisinopril 40 MG tablet 40 mg PO DAILY Patient Comments: BLOOD PRESSURE atorvastatin 40 MG tablet 40 mg PO QHS Qty: 90 0RF Eliquis 5 mg tablet 5 mg PO BID levothyroxine 125 mcg tablet 125 mcg PO DAILY hydrochlorothiazide 25 mg tablet 25 mg PO DAILY multivitamin [Daily Multi-Vitamin] Tablet 1 tab PO DAILY aspirin [Adult Aspirin Regimen] 81 mg tablet,delayed release (DR/EC) 81 mg PO DAILY gabapentin 300 mg capsule 300 mg PO QHS metoprolol succinate 50 mg tablet extended release 24 hr 50 mg PO DAILY Referrals / Follow Up: Salvador Diaz MD [Primary Care Provider] - Disposition Disposition (needs filled in before D/C Order can be placed): Home, Self Care
--- NOTE | 2024-10-24 12:36 | DS.PCM_ITS ---
Providers Date of Admission: 10/22/24 Date of Discharge: 10/24/24 Primary Care Physician: Dr. Salvador Diaz MD Consultations 10/22/24 06:52 Consult: Gastroenterology Routine Consulting Provider: Camila G[facility] Reason for Consult: Suspected Cholangitis. EMERGENT Consult: No MD Notified: Yes Date Notified: 10/22/24 Time Notified: 04:45 Method of Notification: ED Physician Initiated Reason For Visit: LACTIC ACIDOSIS N/V AND ROSSANA Diagnosis Discharge Diagnosis (1) Cholangitis: Status: Acute Code(s): K83.09 - Other cholangitis Plan 1. Fever of unknown origin-on admission, the patient was suspected of having cholangitis, this has not been proven, it may be possible for the patient to be discharged home on a total of 5 days of antibiotics, blood culture has not resulted as of yet but the patient peers nontoxic today and states he feels good. #2 nausea and vomiting-etiology unclear, symptoms have resolved at this time #3 dehydration-I do not feel the patient has acute kidney injury, patient's creatinine has to decreased to 1.78 today. #4 chronic use of anticoagulants-patient will resume his apixaban #5 class III obesity #6 chronic kidney disease stage IIIb #7 hyperlipidemia #8 hypothyroidism #9 essential hypertension Total clinical time spent by myself addressing the patient's medical issues, reviewing all of his data, and collaborating with patient's care team: 35 minutes Medications at Discharge Home Medications lisinopril 40 mg tablet 40 mg PO DAILY blood pressure 01/31/13 atorvastatin 40 mg tablet 40 mg PO QHS cholesterol #90 TABLETS 09/05/16 gabapentin 300 mg capsule 300 mg PO QHS nerve pain 10/22/23 metoprolol succinate 50 mg tablet,extended release 24 hr 50 mg PO DAILY blood pressure 10/22/23 apixaban 5 mg tablet (Eliquis) 5 mg PO BID blood thinner 03/26/24 hydrochlorothiazide 25 mg tablet 25 mg PO DAILY reduce fluid 03/26/24 levothyroxine 125 mcg tablet 125 mcg PO DAILY disorder of thyroid gland 03/26/24 aspirin 81 mg tablet,delayed release (Adult Aspirin Regimen) 81 mg PO DAILY 08/31/24 multivitamin (Daily Multi-Vitamin tablet) 1 tab PO DAILY 08/31/24 Hospital Course Operations None Procedures None Summary of Care Provided Minutes Spent on Discharge: 31 Hospital Course: This 79-year-old white male was seen in the emergency room at [facility] with complaints of nausea and vomiting for 1 to 2 hours and malaise. EMS was called because the patient felt he had to come to the hospital for evaluation, they checked his temperature and it was 102.5. Patient was concerned he had a biliary issue as he had had those in the past, in March patient had an ERCP with biliary stent and the stent was removed and then another ERCP approximately 2 months ago and the stent was placed back pain. Labs showed a normal white blood cell count at 10.6, hemoglobin was normal, chemistry profile showed a creatinine of 1.86 and a BUN of 28, glucose was 189 and the remainder of the chemistry profile was unremarkable. Patient's lactic acid was elevated 2.3, patient's liver enzymes were unremarkable. Chest x-ray showed no evidence of acute abnormality. Patient was admitted to [place] [address] and placed on IV antibiotics for suspected cholangitis and dehydration, IV fluids were given and he was seen in consultation by gastroenterology who did not feel the patient ultimately had cholangitis. Patient became afebrile, blood culture showed no growth and the patient's urine had mixed gram-positive organisms indicating contaminated specimen. Ultimately patient was felt to have a fever of unknown origin that resolved. On 10/24/2024, patient was seen and examined: On examination he appeared in good health and spirits. Patient is morbidly obese. Vital signs as documented. Skin warm and dry and without overt rashes. Neck without JVD, neck was supple, trachea midline, thyroid was normal. Lungs clear bilaterally, normal air movement was noted. Heart exam notable for regular rhythm, normal sounds and absence of murmurs, rubs or gallops. Abdomen unremarkable and without evidence of organomegaly, masses, or abdominal aortic enlargement. Bowel sounds are present, abdomen is not distended. Extremities nonedematous, no cyanosis was noted, no clubbing was noted. Neuro: Cranial nerves II through XII are grossly intact, no focal motor deficits were noted, sensation to light touch and pinprick intact, motor exam 5/5 throughout. Psych: Patient is alert and oriented x3, he does not appear anxious or depressed, he does not appear agitated. Weight / BMI Weight Weight: 136 kg Body Mass Index (BMI) 42.9 ABG / Lab / Microbiology Data 10/23/24 05:33 10/23/24 05:33 Microbiology: Microbiology 10/22/24 01:25 Blood Culture (Wb) - Right Hand Blood Culture - Final No growth in 5 days. 10/22/24 00:35 Blood Culture (Wb) - Left Hand Blood Culture - Final No growth in 5 days. 10/22/24 14:00 Urine, Clean Catch Urine Culture - Final Mixed Gram Positive Organisms D/C Instructions Discharge Diet: No restrictions Weight Bearing Status: Full weight bearing DC O2, CPAP, BIPAP Needs Home O2 Discharge instructions: No Meaningful Use Info Meaningful Use Meaningful Use Diagnoses (Choose all that apply): None applicable Ischemic Stroke Statin Dosing Therapy Reference: STATIN DOSE THERAPY REFERENCE: * Patients > 75 years receive moderate or high dose statin therapy. * Patients 75 years or YOUNGER should receive HIGH intensity statin dose unless contraindicated. You will be required to document reason for non-treatment if statin daily dose does not meet guidelines. HIGH DOSE STATIN THERAPY DAILY Atorvastatin > than or = to 40 mg Rosuvastatin > than or = to 20 mg Amlodipine + Atorvastatin > than or = to 2.5/40 mg Ezetimibe + Simvastatin 10/80 mg Simvastatin 80mg Discharge Plan Admission Admit Date/Time: 10/22/24 04:38 Primary Reason for Your Visit: Fever of unknown origin Attending Provider: Ifeanyi Tena Primary Care Provider: Salvador Diaz Consulting Providers: Werner Nunn Discharge Orders/Prescriptions Prescriptions: Continued lisinopril 40 MG tablet 40 mg PO DAILY Patient Comments: BLOOD PRESSURE atorvastatin 40 MG tablet 40 mg PO QHS Qty: 90 0RF Eliquis 5 mg tablet 5 mg PO BID levothyroxine 125 mcg tablet 125 mcg PO DAILY hydrochlorothiazide 25 mg tablet 25 mg PO DAILY multivitamin [Daily Multi-Vitamin] Tablet 1 tab PO DAILY aspirin [Adult Aspirin Regimen] 81 mg tablet,delayed release (DR/EC) 81 mg PO DAILY gabapentin 300 mg capsule 300 mg PO QHS metoprolol succinate 50 mg tablet extended release 24 hr 50 mg PO DAILY Referrals / Follow Up: Salvador Diaz MD [Primary Care Provider] - Within 1 Month Alex Sher DO [Med Staff - Active Staff] - Within 2 Weeks (Call to schedule an appointment) Disposition Disposition (needs filled in before D/C Order can be placed): Home, Self Care Charges/Coding Visit Charges Inpatient E&M: 60464 Disch Hosp >30min
--- NOTE | 2024-10-24 17:43 | PCM.PN.BLA ---
Progress Note Patient continues to be afebrile and has no abdominal pain. Physical Exam Const alert, oriented x3, no apparent distress and healthy appearing General Appearance: cooperative GI normal to inspection, nondistended, normoactive bowel sounds, soft to palpation, non-tender and non-distended Percussion: normal to percussion Rectal Exam: deferred Assessment & Plan Assessment/Plan (1) Cholangitis: PLAN: Plan Very pleasant 79-year-old gentleman with fever of unknown origin. His blood cultures have been negative thus far. He has been on IV antibiotics since being in the hospital. If patient continues to be afebrile then he can be transitioned to oral antibiotics to finish at home. He has a follow-up visit with me in about 10 days in the clinic. 10/24/2024-patient can be DC'd home on 5 more days of antibiotics and follow-up in the clinic. Visit Charges Inpatient E&M: 63789 Subs Hosp L2
== END 2024-10-24 14:05 | disposition home or self-care (01) | DRG 864 ==
LOC: ED 10-22 04:54 → MS3 10-22 07:14
PROVIDERS: Admitting Provider Internal Medicine; Emergency Provider Emergency Medicine; PCP Family Medicine; Visit Provider Internal Medicine
DX: R50.9 Fever, unspecified (principal); K86.2 Cyst of pancreas; E87.20 Acidosis, unspecified; Z68.41 Body mass index [BMI] 40.0-44.9, adult; N18.32 Chronic kidney disease, stage 3b; E03.9 Hypothyroidism, unspecified; I12.9 Hypertensive chronic kidney disease with stage 1 through stage 4 chronic kidney disease, or unspecified chronic kidney disease; R11.2 Nausea with vomiting, unspecified; E86.0 Dehydration; E78.00 Pure hypercholesterolemia, unspecified; K21.9 Gastro-esophageal reflux disease without esophagitis; G62.9 Polyneuropathy, unspecified; M16.11 Unilateral primary osteoarthritis, right hip; E66.813 Obesity, class 3; R10.9 Unspecified abdominal pain; I49.1 Atrial premature depolarization; Z87.19 Personal history of other diseases of the digestive system; Z79.899 Other long term (current) drug therapy; Z79.890 Hormone replacement therapy; Z79.82 Long term (current) use of aspirin; Z86.711 Personal history of pulmonary embolism; Z96.641 Presence of right artificial hip joint; Z79.01 Long term (current) use of anticoagulants; Z96.89 Presence of other specified functional implants
CPT/HCPCS: 36415; 71046; 74177; 74181; 80053; 80061; 81001; 83605; 83690; 83735; 84443; 85025; 85610; 85730; 87040; 87086; 87088; 93005; 94668; 97162; 97530; 99285; Q9967; A4216; J2405

== ENCOUNTER 2024-12-26 09:58 | Day surgery (SDC) | payer MEDICARE, OTHER, SELFPAY ==
--- NOTE | 2024-12-25 10:36 | PAT.ANE_ITS ---
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 12/25/24 10:12 Any Problems With Anesthesia No: SLIGHT NAUSEA 10/07/24 12/25/24 10:12 Cholinesterase deficiency No 12/25/24 10:12 You/Your Family Experience No 12/25/24 10:12 fever (hyperthermia) with Relationship Recent Exposure to Contagious No 10/07/24 10:53 Disease Does patient have nerve No 12/25/24 10:12 stimulator Patient instructed to have device shut off --Does patient have Pacemaker or ICD? When Was Last Pacemaker Check QUESTION #4 FULL TEXT: You/Your Family Experience fever (hyperthermia) with Anesthesia Last Oral Intake Last Oral intake: Last Oral Intake NPO since Meds taken in AM with sips of water? 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 operator Female No 12/25/24 10:12 HX of Motion Sickness No 12/25/24 10:12 HX of N/V After Surgery Yes 12/25/24 10:12 Non-Smoker Yes 12/25/24 10:12 Duration of Surgery greater Yes 12/25/24 10:12 than 60 minutes Number of Risk Factors 3 12/25/24 10:12 PONV Score Moderate Risk 12/25/24 10:12 Height & Weight Height & Weight: Anesthesia: Height & Weight Height 5 ft 10 in 10/22/24 05:50 Respiratory Assessment Respiratory Assessment - chief hydroelectric station operator: Respiratory Tract Infection Hx - chief hydroelectric station operator Hx Respiratory Tract Infection No 12/25/24 10:12 STOP Sleep Apnea STOP Sleep Apnea - chief hydroelectric station operator: STOP Sleep Apnea - chief hydroelectric station operator Hx Hypertension Yes: CONTROLLED WITH MED 12/25/24 10:12 Hx Sleep Apnea Yes 12/25/24 10:12 CPAP Yes 12/25/24 10:12 BIPAP No 12/25/24 10:12 Do you snore loudly (louder than talking or can be heard Do you often feel tired/ fatigued/ sleepy during daytime? Has anyone observed you stop breathing during sleep? STOP Results Positive 12/25/24 10:12 QUESTION #5 FULL TEXT : Do you snore loudly (louder than talking or can be heard through closed doors)? 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 Specify any problems Hx of Preganancy in last 3 N/A 12/25/24 10:12 Months Nurse Filling Out Transfusion DSCHRIBER 12/25/24 10:12 & Questions: Date: 12/25/24 12/25/24 10:12 Time: 10:13 12/25/24 10:12 Patient unable to answer at this time (ie. 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: /Reproductive Hx- chief hydroelectric station operator Hx Now No 12/25/24 10:12 Gestational Age (in weeks): EDC: Hx Hx Para Hx Section SAB No 12/25/24 10:12 [facility] Medical History (Updated 12/25/24 @ 10:23 by Sylvie Adhikari) Ambulates with cane Arthritis Injury of back Back pain Migraine headache Injury of head and neck Non-smoker CPAP (continuous positive airway pressure) dependence Shortness of breath on exertion History of pain when walking History of edema Pulmonary embolism Pain Morbid obesity with BMI of 40.0-44.9, adult ROSSANA (acute kidney injury) Fever Lactic acidosis Cholangitis History of biliary stent insertion Biliary stricture Cancer Wears glasses Thyroid disease Shingles Inguinal hernia Cardiology follow-up encounter History of stress test Pancreatic cyst Choledocholithiasis Current use of penitentiary 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 Elevated liver enzymes Pancreatic mass High cholesterol Hx of gastroesophageal reflux (GERD) Hypertension Home Medications ?Medication ?Instructions ?Recorded ?Last Taken ?Type lisinopril 40 mg tablet 40 mg PO DAILY blood pressur e 01/31/13 10/06/24 History atorvastatin 40 mg tablet 40 mg PO QHS cholesterol #90 09/05/16 10/06/24 Rx TABLETS gabapentin 300 mg capsule 300 mg PO QHS nerve pain 10/06/24 History metoprolol succinate 50 mg 50 mg PO DAILY blood pressu re 10/22/23 10/06/24 History tablet,extended release 24 hr apixaban 5 mg tablet (Eliquis) 5 mg PO BID blood thinn er 03/26/24 12/23/24 History hydrochlorothiazide 25 mg tablet 25 mg PO DAILY reduce fluid 03/26/24 10/06/24 History levothyroxine 125 mcg tablet 125 mcg PO DAILY disorder of 03/26/24 10/06/24 History thyroid gland aspirin 81 mg tablet,delayed 81 mg PO DAILY 08/31/24 0 10/03/24 History release (Adult Aspirin Regimen) multivitamin (Daily Multi-Vitamin 1 tab PO DAILY 08/3110/06/24 History tablet) acetaminophen 500 mg tablet 1,000 mg PO DAILY 12/25/24 Unknown History (Acetaminophen Extra Strength) Allergy/AdvReac Type Severity Reaction Status Date / Time azithromycin (From Zithromax) Allergy Itching Verified 12/25/24 10:07 bee venom protein (honey bee) AdvReac Swelling Verified 12/25/24 10:07 venom-wasp (wasps) AdvReac Swelling Verified 12/25/24 10:07 Surgical History (Updated 12/25/24 @ 10:23 by Sylvie Adhikari) History of total right hip arthroplasty S/P carpal tunnel release History of tonsillectomy History of ERCP Social History Smoking Status: Never smoker Audit: Pertinent Findings Pertinent Findings EKG Perinent findings: EKG October 21, 2024: Sinus rhythm with marked sinus arrhythmia, nonspecific ST abnormality, abnormal EKG. Recommendation Anesthesia Recommendation Anesthesia recommendation: OPTIMIZED for anesthesia
[2024-12-26] VITALS (9 sets, daily range): BP systolic 130–159; BP diastolic 71–101; PULSE 45–56; RESP 16; TEMP 36.4–36.9; O2SAT 94–99; BMI 40.1
--- NOTE | 2024-12-26 10:35 | HP.PCM_ITS ---
HPI - General General Date of Admission: 12/26/24 Date of Service: 12/26/24 Chief Complaint: stent removal HPI Narrative [facility] hospitalization 03.26.24 - 03.28.24 dizziness - consulted for pancreatitis abd/pelvis CT 03.26.24 Lobulated 6 cm pancreatic tail hypoattenuating, cystic appearing lesion previously measuring only up to 3 cm. Cystic neoplastic process is not excluded. Severe distal colonic diverticulosis without focus of diverticulitis. 3 cm exophytic anterior right interpolar renal lesion which does not measure simple fluid attenuation. Recommend nonemergent follow-up renal ultrasound to better characterize as solid neoplastic process is not 6excluded. Gall Bladder US 03.26.24 Fatty infiltration of the liver. MRCP 03.26.24 1. Normal gallbladder and biliary tree. 2. Multiple pancreatic cysts involving the tail of the pancreas. ERCP 03.27.24 The entire main bile duct and left main hepatic duct were dilated, with a stone causing an obstruction. Choledocholithiasis was found. Complete removal was accomplished by biliary sphincterotomy and balloon extraction. A pancreatic sphincterotomy was performed. The ventral pancreatic duct was swept and debris was found. A biliary sphincterotomy was performed. The biliary tree was swept. One temporary stent was placed into the common bile duct. OV 12.17.24 pt reports that he is feeling well overall and denies GI symptoms of concern at this time. Pt states that he has not had any symptoms since hospitalization. Would like to know when his stent will be removed. ERCP 3.25 Mucosal changes in the duodenum. Biopsies were taken with a cold forceps for histology in the ampulla. Choledocholithiasis was found. Complete removal was accomplished by biliary sphincterotomy and balloon extraction. A biliary sphincterotomy was performed. The biliary tree was swept. One stent was removed from the biliary tree. OV ..25 pt reports that he is feeling well overall and denies GI symptoms of concern at this time. Reports continued sciatica pain and reports that in 2 weeks he is having ablation done with Dr Cabezas. ERCP 6..25;Mucosal changes in the duodenum.Destruction of remaining portion of lesion in the ampulla with hot biopsy forceps was performed. Polypectomy was performed. Duodenal diverticulum. A single localized biliary stricture was found in the lower third of the main bile duct. The stricture was benign appearing. The entire main bile duct was moderately dilated, acquired. The patient has had a cholecystectomy.Choledocholithiasis was found. Complete removal was accomplished by sweeping.- A pancreatic sphincterotomy was performed .The biliary tree was swept and sludge was found One temporary stent was placed into the common bile duct. [facility] 6-10.24.24 with fever of unknown origin possible cholangitis. Discharged with antibiotics OV 7.9.25 Pt here today for f/u after [facility] admission for fever. Pt has been doing well since discharge with no GI complaints. [facility] Medical History Ambulates with cane Arthritis Injury of back Back pain Migraine headache Injury of head and neck Non-smoker CPAP (continuous positive airway pressure) dependence Shortness of breath on exertion History of pain when walking History of edema Pulmonary embolism Pain Morbid obesity with BMI of 40.0-44.9, adult ROSSANA (acute kidney injury) Fever Lactic acidosis Cholangitis History of biliary stent insertion Biliary stricture Cancer Wears glasses Thyroid disease Shingles Inguinal hernia Cardiology follow-up encounter History of stress test Pancreatic cyst Choledocholithiasis Current use of care home 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 Elevated liver enzymes Pancreatic mass High cholesterol Hx of gastroesophageal reflux (GERD) Hypertension Home Medications ?Medication ?Instructions ?Recorded ?Last Taken ?Type lisinopril 40 mg tablet 40 mg PO DAILY blood pressur e 01/31/13 12/25/24 History atorvastatin 40 mg tablet 40 mg PO QHS cholesterol #90 09/05/16 12/25/24 Rx TABLETS gabapentin 300 mg capsule 300 mg PO QHS nerve pain 12/25/24 History metoprolol succinate 50 mg 50 mg PO DAILY blood pressu re 10/22/23 12/25/24 History tablet,extended release 24 hr apixaban 5 mg tablet (Eliquis) 5 mg PO BID blood thinn er 03/26/24 12/23/24 History hydrochlorothiazide 25 mg tablet 25 mg PO DAILY reduce fluid 03/26/24 12/25/24 History levothyroxine 125 mcg tablet 125 mcg PO DAILY disorder of 03/26/24 12/25/24 History thyroid gland aspirin 81 mg tablet,delayed 81 mg PO DAILY 08/31/24 0 12/25/24 History release (Adult Aspirin Regimen) multivitamin (Daily Multi-Vitamin 1 tab PO DAILY 08/3112/25/24 History tablet) acetaminophen 500 mg tablet 1,000 mg PO DAILY 12/25/24 12/25/24 History (Acetaminophen Extra Strength) Allergy/AdvReac Type Severity Reaction Status Date / Time azithromycin (From Zithromax) Allergy Itching Verified 12/25/24 10:07 bee venom protein (honey bee) AdvReac Swelling Verified 12/25/24 10:07 venom-wasp (wasps) AdvReac Swelling Verified 12/25/24 10:07 Surgical History History of total right hip arthroplasty S/P carpal tunnel release History of tonsillectomy History of ERCP Social History Smoking Status: Never smoker ROS Constitutional Constitutional: Denies fatigue, fever(s), poor appetite, weight gain or weight loss Gastrointestinal Gastrointestinal: Denies belching, bloating, change in bowel habits, change in stool character, chewing difficulty, coffee ground emesis, constipation, cramping, diarrhea, dyspepsia, dysphagia, early satiety, excessive flatus, fecal incontinence, heartburn, hematemesis, hematochezia, hemorrhoids, loose stools, melena, nausea, odynophagia, rectal bleeding, tenesmus, vomiting or weight changes Physical Exam Const alert, oriented x3, no apparent distress and healthy appearing General Appearance: cooperative GI normal to inspection, nondistended, normoactive bowel sounds, soft to palpation, non-tender and non-distended Percussion: normal to percussion Rectal Exam: deferred Assessment & Plan Assessment/Plan (1) Choledocholithiasis: PLAN: Assessment and Plan Assessment and Plan (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 Pt established with [facility] in March 2024 during admission for pancreatitis. He underwent ERCP which showed dilated hepatic duct and CBD with a stone. Stent was placed. MRCP showing multiple pancreatic cysts. Repeat ERCP in Mar 2024 for biopsy of the ampulla which showed low grade focal dysplasia. He underwent another ERCP for ampullectomy. Two weeks following his last ERCP he developed a fever and presented to the ED. Concern for cholangitis however this was ruled out. Discharged with antibiotics. He is doing well today with no GI complaints. He will be scheduled for repeat ERCP for removal of CBD stent. Will consider referral to gen surgery for discission of cholecystectomy. Pt does not wish to see surgery at this time. -Repeat ERCP for stent removal -f/u after procedure (2) Choledocholithiasis: Status: Acute (3) Fever: Status: Acute
[2024-12-26] MEDS: Lactated Ringers 1,000 ML 15 ML IV (10:41)
--- NOTE | 2024-12-26 11:00 | COLBX_PTH ---
PATIENT: FRAN PAREKH LOC: EN U#:[id number] AGE/SX: 79/M ROOM: RE12/26/[address]: Dr. Alex Sher DO : 1945 BED: DIS: 12/26/2024 SPEC #: [id number] RECD: 12/26/24 12:53 STATUS: PAPITO REChase #: [id number] KATE: 12/26/24 11:[address]: Alex Sher DEPT: SURGICAL PATHOLOGY RECD BY: Vineet Rock ENTERED: 12/26/24 14:09 SP TYPE: COLON BX OTHR DR: Dr. Salvador Diaz MD Tissues: A - Ampulla of Vater Procedures: Surgery Specimen Level IV HEADER OPERATION: ERCP, stent removal, ampula removal and Argon Plasma Coagulation PRE-OP DIAGNOSIS: ERCP for stent removal TISSUE SUBMITTED: A- Ampula per snare MICROSCOPIC DIAGNOSIS A. Ampulla, biopsy: - Inflammatory polyp and hyperplastic crypt change. - Marked cautery artifact - see note. Note: Marked cautery artifact limits the assessment. A sessile serrated lesion cannot be ruled out. Dysplasia cannot be ruled out. Deeper sections examined. MICROSCOPIC DESCRIPTION Slides are reviewed. GROSS DESCRIPTION A. Received in formalin labeled with the patient's name and date of . Designated as ampulla per snare is a 0.6 x 0.6 x 0.3 cm pink-pitt red, cauterized, polypoid tissue fragment. The cautery is inked black and the specimen is bisected. Entirely submitted in 1 cassette. MT 12/26/2024 CPT:07218
--- NOTE | 2024-12-26 11:00 | FLU_PTH ---
PATIENT: FRAN PAREKH LOC: EN U#:[id number] AGE/SX: 79/M ROOM: RE12/26/[address]: Dr. Alex Sher DO : 1945 BED: DIS: 12/26/2024 SPEC #: [id number] RECD: 12/26/24 12:53 STATUS: PAPITO REChase #: [id number] KATE: 12/26/24 11:[address]: Alex Sher DEPT: CYTOLOGY RECD BY: Vineet Rock ENTERED: 12/26/24 14:01 SP TYPE: Fluid OTHR DR: Dr. Salvador Diaz MD Tissues: A - Bile duct, NOS Procedures: Special Stain Group II Surgery Specimen Level III Surgery Specimen Level IV Cytospin Fluid HEADER OPERATION: ERCP, stent removal, ampulla removal and Argon Plasma Coagulation PRE-OP DIAGNOSIS: ERCP for stent removal TISSUE SUBMITTED: A- Biliary stent for cytology DIAGNOSIS CYTOLOGY A. Biliary stent (cytospin, cellblock): - No malignant cells identified. - Essentially acellular specimen. - Bile pigments and debris noted. CYTOLOGY STUDY Slides are reviewed. CYTOLOGY GROSS A. Received is 8 mm of black stent with 0.2 ml of thick-yellow material with particles labeled with the patient's name and and designated per the requisition as Biliary stent for cytology. Submitted for cytology and cell block preparation. Mr 12/26/2024 CPT: 24570,[id number]
--- NOTE | 2024-12-26 11:15 | PCM.PRE.AN2 ---
ASA Classification* ASA Classification ASA Classification: 3 Assessment & Plan Anesthesia* Anesthesia Assessment Anesthesia Assessment: Discussed sedation and/or anesthesia options, risks, benefits, and alternatives with patient/parents/legal guardian/POA. Questions invited. The patient/parents/legal guardian/POA seems to understand and agrees to proceed with anesthesia plan. Reviewed the physical assessment, medical history, allergy history and patient home medications list prior to surgery/procedure/anesthetic and documented any changes. Performed airway and anesthesia risk assessments. Anesthesia Type Anesthesia Type: MAC History Source History Obtained from:: Patient and Chart Anesthesia Focused Assessment* Temperature: 98.4 F Pulse Rate: 54 Blood Pressure: 159/82 Respiratory Rate: 16 Pulse Ox: 99 Oxygen Delivery Method: Room Air Airway Assessment Mouth opens: >3 cm Mallampati Score: III Teeth Condition: Caps/Crowns (Couple caps. They are tight.) Neck Range of motion (ROM): Limited ROM (Severe Restriction) Labs Anesthesia Preop lab: CBC WBC 9.9 K/mm3 (4.4-11.0) 10/23/24 05:10/23/24 RBC 4.26 M/mm3 (4.6-6.2) L 10/23/24 05:10/23/24 Hgb 13.6 g/dL (13.0-16.5) 10/23/24 05:10/23/24 Hct 40.8 % (40-54) 10/23/24 05:10/23/24 Plt Count 178 K/mm3 (150-450) 10/23/24 05:10/23/24 CHEMISTRY Potassium 4.2 mmol/L (3.3-5.1) 10/23/24 05:10/23/24 Sodium 140 mmol/L (133-145) 10/23/24 05:10/23/24 Magnesium 1.5 mg/dL (1.5-2.2) 10/22/24 00:35 10/22/24 BUN 21 mg/dL (4-19) H 10/23/24 05:10/23/24 Creatinine 1.78 mg/dL (0.70-1.20) H 10/23/24 05:10/23/24 Glucose 125 mg/dL (70-99) H 10/23/24 05:33 10/23/24 TSH 1.840 uIU/mL (0.300-4.200) 10/22/24 00:35 10/22/24 COAG PT 15.3 SECONDS (11.7-14.9) H 10/22/24 00:35 10/22/24 Pre-Assessment Diagnosis/Proposed Procedure Planned Operative Procedure(s): ERCP WITH STENT REMOVAL Anesthesia History 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 12/25/24 10:12 Any Problems With Anesthesia No: SLIGHT NAUSEA 10/07/24 12/25/24 10:12 Cholinesterase deficiency No 12/25/24 10:12 You/Your Family Experience No 12/25/24 10:12 fever (hyperthermia) with Relationship Recent Exposure to Contagious No 12/26/24 10:28 Disease Does patient have nerve No 12/25/24 10:12 stimulator Patient instructed to have device shut off --Does patient have Pacemaker No 12/26/24 10:28 or ICD? When Was Last Pacemaker Check QUESTION #4 FULL TEXT: You/Your Family Experience fever (hyperthermia) with Anesthesia Last Oral Intake Last Oral intake: Last Oral Intake NPO since 18:00 12/26/24 10:28 Meds taken in AM with sips of No 12/26/24 10:28 water? 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 Female No 12/25/24 10:12 HX of Motion Sickness No 12/25/24 10:12 HX of N/V After Surgery Yes 12/25/24 10:12 Non-Smoker Yes 12/25/24 10:12 Duration of Surgery greater Yes 12/25/24 10:12 than 60 minutes Number of Risk Factors 3 12/25/24 10:12 PONV Score Moderate Risk 12/25/24 10:12 Height & Weight Height & Weight: Anesthesia: Height & Weight Height 5 ft 11 in 12/26/24 10:28 Weight: 130.5 kg 12/26/24 10:28 Body Mass Index (BMI) 40.1 12/26/24 10:28 Respiratory Assessment Respiratory Assessment - test desk supervisor: Respiratory Tract Infection Hx - test desk supervisor Hx Respiratory Tract Infection No 12/25/24 10:12 STOP Sleep Apnea STOP Sleep Apnea - test desk supervisor: STOP Sleep Apnea - test desk supervisor Hx Hypertension Yes: CONTROLLED WITH MED 12/25/24 10:12 Hx Sleep Apnea Yes 12/25/24 10:12 CPAP Yes 12/25/24 10:12 BIPAP No 12/25/24 10:12 Do you snore loudly (louder than talking or can be heard Do you often feel tired/ fatigued/ sleepy during daytime? Has anyone observed you stop breathing during sleep? STOP Results Positive 12/25/24 10:12 QUESTION #5 FULL TEXT : Do you snore loudly (louder than talking or can be heard through closed doors)? 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 Specify any problems Hx of Preganancy in last 3 N/A 12/25/24 10:12 Months Nurse Filling Out Transfusion DSCHRIBER 12/25/24 10:12 & Questions: Date: 12/25/24 12/25/24 10:12 Time: 10:13 12/25/24 10:12 Patient unable to answer at this time (ie. confused, unrespo /Reproduction History /Reproductive History - test desk supervisor: /Reproductive Hx- test desk supervisor Hx Now No 12/25/24 10:12 Gestational Age (in weeks): EDC: Hx Hx Para Hx Section SAB No 12/25/24 10:12 Active Medications Active Medications: Current Medications Generic Name Dose Route Start Last Admin Trade Name Freq PRN Reason Stop Dose Admin Lactated Ringer's 1,000 mls @ 15 mls/hr 12/26/24 10:15 12/26/24 10:41 IV 15 mls/hr .Q48H PRABHA Administration PFSH Medical History Ambulates with cane Arthritis Injury of back Back pain Migraine headache Injury of head and neck Non-smoker CPAP (continuous positive airway pressure) dependence Shortness of breath on exertion History of pain when walking History of edema Pulmonary embolism Pain Morbid obesity with BMI of 40.0-44.9, adult ROSSANA (acute kidney injury) Fever Lactic acidosis Cholangitis History of biliary stent insertion Biliary stricture Cancer Wears glasses Thyroid disease Shingles Inguinal hernia Cardiology follow-up encounter History of stress test Pancreatic cyst Choledocholithiasis 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 Elevated liver enzymes Pancreatic mass High cholesterol Hx of gastroesophageal reflux (GERD) Hypertension Home Medications ?Medication ?Instructions ?Recorded ?Last Taken ?Type lisinopril 40 mg tablet 40 mg PO DAILY blood pressure 01/31/13 12/25/24 History atorvastatin 40 mg tablet 40 mg PO QHS cholesterol #90 09/05/16 12/25/24 Rx TABLETS gabapentin 300 mg capsule 300 mg PO QHS nerve pain 10/22/23 12/25/24 History metoprolol succinate 50 mg 50 mg PO DAILY blood pressure 10/22/23 12/25/24 History tablet,extended release 24 hr apixaban 5 mg tablet (Eliquis) 5 mg PO BID blood thinner 03/26/24 12/23/24 History hydrochlorothiazide 25 mg tablet 25 mg PO DAILY reduce fluid 03/26/24 12/25/24 History levothyroxine 125 mcg tablet 125 mcg PO DAILY disorder of 03/26/24 12/25/24 History thyroid gland aspirin 81 mg tablet,delayed 81 mg PO DAILY 08/31/24 12/25/24 History release (Adult Aspirin Regimen) multivitamin (Daily Multi-Vitamin 1 tab PO DAILY 08/31/24 12/25/24 History tablet) acetaminophen 500 mg tablet 1,000 mg PO DAILY 12/25/24 12/25/24 History (Acetaminophen Extra Strength) Allergy/AdvReac Type Severity Reaction Status Date / Time azithromycin (From Zithromax) Allergy Itching Verified 12/25/24 10:07 bee venom protein (honey bee) AdvReac Swelling Verified 12/25/24 10:07 venom-wasp (wasps) AdvReac Swelling Verified 12/25/24 10:07 Surgical History History of total right hip arthroplasty S/P carpal tunnel release History of tonsillectomy History of ERCP Social History Smoking Status: Never smoker Review of Systems (Anesthesia) ROS Narrative System reviewed and no additional complaints, except as documented.
--- NOTE | 2024-12-26 11:50 | RAD_ITS ---
PROCEDURE: ERCP/fluoroscopy use 12/26/2024 REASON FOR EXAM: ERCP procedure. TECHNIQUE: Procedure Code: RADERCP Modality: DX Procedure: ERCP BILIARY/PANCREAS COMPARISON: Prior ERCP 10/07/2024. FINDINGS: 7 intraoperative spot images were obtained during ERCP procedure. 60.1 seconds of fluoroscopic time utilized. An endoscope projects over the right upper abdomen. There is contrast opacification of the common duct and portions of the intrahepatic ducts. There is also opacification of the cystic duct and a portion of the gallbladder. There are several filling defects in the common duct in the left hepatic duct on image 5. No definite extrinsic mass effect on the common duct. RAD/ERCP Biliary/Pancreas IMPRESSION: Documentation of fluoroscopy use during ERCP procedure. Several filling defect s in the common duct and the left hepatic duct on image 5 may be due to air bubbles versus common duct stones. Please see the op erative report for details. Reading Location: [facility]
--- NOTE | 2024-12-26 12:29 | OP.ERCP_ITS ---
Patient Name: Moi Lopez Procedure Date: 12/26/2024 11:16 AM Date of : 1945 Age: 79 Procedure: ERCP Indications: Bile duct stone(s), Biliary stent removal Providers: Alex Sher DO Medicines: Monitored Anesthesia Care Patient Profile: This is an 79 year old male. Refer to note in patient chart for documentation of history and physical. Patient has symptoms of acute right upper quadrant abdominal pain. His most recent ERCP for stent and ERCP for stone removal was within the past three months. Complications: No immediate complications. Procedure: Pre-Anesthesia Assessment: - Prior to the procedure, a History and Physical was performed, and patient medications and allergies were reviewed. The patient is competent. The risks and benefits of the procedure and the sedation options and risks were discussed with the patient. All questions were answered and informed consent was obtained. Patient identification and proposed procedure were verified by the physician in the pre-procedure area. Mental Status Examination: alert and oriented. Airway Examination: normal oropharyngeal airway and neck mobility. Respiratory Examination: clear to auscultation. CV Examination: normal. Prophylactic Antibiotics: The patient does not require prophylactic antibiotics. Prior Anticoagulants: The patient has taken no anticoagulant or antiplatelet agents. ASA Grade Assessment: III - A patient with severe systemic disease. After reviewing the risks and benefits, the patient was deemed in satisfactory condition to undergo the procedure. The anesthesia plan was to use monitored anesthesia care (MAC). Immediately prior to administration of medications, the patient was re-assessed for adequacy to receive sedatives. The heart rate, respiratory rate, oxygen saturations, blood pressure, adequacy of pulmonary ventilation, and response to care were monitored throughout the procedure. The physical status of the patient was re-assessed after the procedure. After obtaining informed consent, the scope was passed under direct vision. Throughout the procedure, the patient's blood pressure, pulse, and oxygen saturations were monitored continuously. The Duodenoscope was introduced through the mouth, and advanced to the duodenum and used to inject contrast into the bile duct. The ERCP was accomplished without difficulty. The patient tolerated the procedure well. Scope In: 11:52:51 AM Scope Out: 12:19:32 PM Total Procedure Duration Time 0 hours 26 minutes 41 seconds Findings: The farmworker turkey farm film was normal. The scope was advanced to a normal major papilla in the descending duodenum. Examination of the pharynx, larynx and associated structures, and upper GI tract was normal. The minor papilla was not found. The scope was passed through the upper GI tract without discovering UGI findings. A small frondlike/villous mass measuring five mm in diameter was found at the major papilla. The major papilla was edematous. The polyp was removed with a hot snare. The polypectomy was performed through the esophagogastroduodenoscope. Resection and retrieval were complete. A long 0.025 inch Jagwire was passed into the biliary tree. The short-nosed traction sphincterotome was passed over the guidewire and the bile duct was then deeply cannulated. Contrast was injected. I personally interpreted the bile duct images. There was brisk flow of contrast through the ducts. Image quality was adequate. Contrast extended to the entire biliary tree. Opacification of the entire opacified area, main bile duct, common bile duct, cystic duct, gallbladder, common hepatic duct, hepatic duct bifurcation and entire biliary tree was successful. The maximum diameter of the ducts was 10 mm. The lower third of the main bile duct, common bile duct and common hepatic duct contained two stones, the largest of which was 5 mm in diameter. The main bile duct was mildly dilated, with a stone causing an obstruction. The largest diameter was 10 mm. A 5 mm biliary sphincterotomy was made with a traction (standard) sphincterotome using ERBE electrocautery. There was no post-sphincterotomy bleeding. The biliary tree was swept with a 12 mm balloon starting at the upper third of the main bile duct, middle third of the main bile duct, lower third of the main duct, bifurcation, left intrahepatic duct(s) and left main hepatic duct. Sludge was swept from the duct. All stones were removed. One stent was removed from the biliary tree using a snare and sent for cytology. Impression: - The major papilla appeared to have a mass. - The major papilla appeared edematous. - Polypectomy was performed. - The entire main bile duct was mildly dilated, with a stone causing an obstruction. - Choledocholithiasis was found. Complete removal was accomplished by biliary sphincterotomy and balloon extraction. - A biliary sphincterotomy was performed. - The biliary tree was swept. - One stent was removed from the biliary tree. Procedure Code(s): --- Professional --- 14864, Endoscopic retrograde cholangiopancreatography (ERCP); with removal of foreign body(s) or stent(s) from biliary/pancreatic duct(s) 99372, Endoscopic retrograde cholangiopancreatography (ERCP); with removal of calculi/debris from biliary/pancreatic duct(s) 86744, Endoscopic retrograde cholangiopancreatography (ERCP); with sphincterotomy/papillotomy 34014, Esophagogastroduodenoscopy, flexible, transoral; with removal of tumor(s), polyp(s), or other lesion(s) by snare technique 72053, 26, Endoscopic catheterization of the biliary ductal system, radiological supervision and interpretation CPT copyright 2021 [employer]. All rights reserved. The codes documented in this report are preliminary and upon supervisor pit and auxiliaries review may be revised to meet current compliance requirements. Alex Sher DO 12/26/2024 12:29:22 PM This report has been signed electronically. Number of Addenda: 0 Note Initiated On: 12/26/2024 11:16 AM
--- NOTE | 2024-12-26 12:29 | OP.PROVAT_ITS ---
12/26/2024 Salvador Diaz Re : ERCP procedure for Moi Gilbertervin Diaz This procedure was performed on November. My impressions and recommendations are as follows: Impressions : - The major papilla appeared to have a mass. - The major papilla appeared edematous. - Polypectomy was performed. - The entire main bile duct was mildly dilated, with a stone causing an obstruction. - Choledocholithiasis was found. Complete removal was accomplished by biliary sphincterotomy and balloon extraction. - A biliary sphincterotomy was performed. - The biliary tree was swept. - One stent was removed from the biliary tree. Recommendations : My findings are described in the full procedure note, which is enclosed. If I can be of further assistance, please feel free to contact me at . Sincerely, Alex Sher, 12/26/2024 12:29:22 PM This report has been signed electronically.
--- NOTE | 2024-12-26 12:46 | PCM.POST.ANE ---
Anesthesia: Postop Eval I Current Vital Signs Temperature: 97.6 F Pulse Rate: 56 Blood Pressure: 131/82 Respiratory Rate: 16 Pulse Ox: 95 Oxygen Delivery Method: Room Air Assessment Airway patent: Yes Spontaneous unlabored respirations: Yes Mental status: Awake and Calm nausea: No Vomiting: No Anesthesia Complication: No Fluid Hydration Crystalloid volume administer (ml): 800 Total IV fluid infused: 800 Progress Note Anesthesia document: Postop Eval 1 completed: Yes
--- NOTE | 2024-12-26 13:45 | PCM.POSTANE2 ---
Anesthesia Postop Eval I Sum Postop Eval Completion status Anesthesia document: Postop Eval 1 completed: Yes Anesthesia Postop Eval I Summary Anesthesia Postop Eval I Summary: Anesthesia Postop Eval I: Assessment Summary Airway patent Yes 12/26/24 12:46 [email or web address] Spontaneous unlabored Yes 12/26/24 12:46 [email or web address] respirations Mental status Awake,Calm 12/26/24 12:46 [email or web address] nausea No 12/26/24 12:46 [email or web address] Vomiting No 12/26/24 12:46 [email or web address] Anesthesia Postop Eval I: Fluid Summary Crystalloid volume administer 800 12/26/24 12:46 [email or web address] (ml) Colloids volume administered ( ml) Blood Product volume administered (ml) Total IV fluid infused 800 12/26/24 12:46 [email or web address] Anesthesia Postop Eval I: Summary Notes Anesthesia Complication No 12/26/24 12:46 [email or web address] Anesthesia Complication Comment: Post-operative progress note Anesthesia: Postop Eval II Evaluation Mental status: Awake and Calm Pain Level: 0 nausea: No Vomiting: No Complications Anesthesia Complication: No
== END 2024-12-26 14:00 | disposition home or self-care (01) ==
LOC: EN 10:01 → AC 10:03
PROVIDERS: PCP Family Medicine; Referring Provider Family Medicine; Visit Provider Internal Medicine Gastroenterology
PROC: (CPT 43260; principal; 2024-12-26 10:40)
DX: Z46.59 Encounter for fitting and adjustment of other gastrointestinal appliance and device (principal); E78.00 Pure hypercholesterolemia, unspecified; I10 Essential (primary) hypertension; Z86.711 Personal history of pulmonary embolism; Z79.899 Other long term (current) drug therapy; Z79.01 Long term (current) use of anticoagulants; E07.9 Disorder of thyroid, unspecified; Z79.890 Hormone replacement therapy; Z79.82 Long term (current) use of aspirin; K21.9 Gastro-esophageal reflux disease without esophagitis; K80.51 Calculus of bile duct without cholangitis or cholecystitis with obstruction; K62.0 Anal polyp
CPT/HCPCS: 43262; 45385; 43264; 43275; 74330; 76000; 88108; 88304; 88305; 88313; C1889; J2405

== ENCOUNTER 2025-02-15 12:50 | Inpatient (IN) | payer MEDICARE, OTHER, SELFPAY ==
[2025-02-15] VITALS (20 sets, daily range): BP systolic 110–187; BP diastolic 60–93; PULSE 46–56; RESP 23–35; TEMP 36.2–37.1; O2SAT 94–99; BMI 41.9; BMI 41.7
--- NOTE | 2025-02-15 13:04 | EKG12_ITS ---
Test Reason : Blood Pressure : */* mmHG Vent. Rate : 48 BPM Atrial Rate : 48 BPM P-R Int : 232 ms QRS Dur : 82 ms QT Int : 488 ms P-R-T Axes : 27 35 22 degrees QTcB Int : 435 ms AV dissociation vs 2:1 AV block with Premature atrial complexes in a pattern of bigeminy Nonspecific ST abnormality Abnormal ECG Confirmed by EMMANUEL FORD, ESTRELLITA ([id number]), movie editor SEAN DALTON ([id number]) on 02/17/2025 6:40:16 AM Referred By: Confirmed By: ESTRELLITA BENITEZ MD
--- NOTE | 2025-02-15 13:05 | EDS_ITS ---
HPI History of Present Illness Chief Complaint: Shortness of Breath Narrative Narrative: 79-year-old male past medical history of hypertension, states that he has been on a water pill for at least 8 years. Was to reduce fluid although he states he does not have a history of congestive heart failure. He states he had been watching too many reels on Facebook and became concerned about him being on a water pill. He stopped it independently about a week ago. Since then, he has noticed weight gain and shortness of breath that is worse with walking or going up a flight of stairs. He denies any chest pain. No fevers or chills, no cough. He does have chronic bilateral lower extremity leg swelling. He also relates history that about a year ago, he was diagnosed with a pulmonary embolism and spent a week in the ICU at [facility]. He is currently taking Eliquis. He presents because of the shortness of breath and dyspnea on exertion. [facility] Medical History Ambulates with cane Arthritis Injury of back Back pain Migraine headache Injury of head and neck Non-smoker CPAP (continuous positive airway pressure) dependence Shortness of breath on exertion History of pain when walking History of edema Pulmonary embolism Pain Morbid obesity with BMI of 40.0-44.9, adult ROSSANA (acute kidney injury) Fever Lactic acidosis Cholangitis History of biliary stent insertion Biliary stricture Cancer Wears glasses Thyroid disease Shingles Inguinal hernia Cardiology follow-up encounter History of stress test Pancreatic cyst Choledocholithiasis Current use of nursing home 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 Elevated liver enzymes Pancreatic mass High cholesterol Hx of gastroesophageal reflux (GERD) Hypertension Home Medications ?Medication ?Instructions ?Recorded ?Last Taken ?Type lisinopril 40 mg tablet 40 mg PO DAILY blood pressur e 01/31/13 12/25/24 History atorvastatin 40 mg tablet 40 mg PO QHS cholesterol #90 09/05/16 12/25/24 Rx TABLETS gabapentin 300 mg capsule 300 mg PO QHS nerve pain 12/25/24 History metoprolol succinate 50 mg 50 mg PO DAILY blood pressu re 10/22/23 12/25/24 History tablet,extended release 24 hr apixaban 5 mg tablet (Eliquis) 5 mg PO BID blood thinn er 03/26/24 12/23/24 History hydrochlorothiazide 25 mg tablet 25 mg PO DAILY reduce fluid 03/26/24 12/25/24 History levothyroxine 125 mcg tablet 125 mcg PO DAILY disorder of 03/26/24 12/25/24 History thyroid gland aspirin 81 mg tablet,delayed 81 mg PO DAILY 08/31/24 0 12/25/24 History release (Adult Aspirin Regimen) multivitamin (Daily Multi-Vitamin 1 tab PO DAILY 08/3112/25/24 History tablet) acetaminophen 500 mg tablet 1,000 mg PO DAILY 12/25/24 02/15/25 History (Acetaminophen Extra Strength) Allergy/AdvReac Type Severity Reaction Status Date / Time azithromycin (From Zithromax) Allergy Itching Verified 02/15/25 12:51 bee venom protein (honey bee) AdvReac Swelling Verified 02/15/25 12:51 venom-wasp (wasps) AdvReac Swelling Verified 02/15/25 12:51 Surgical History History of total right hip arthroplasty S/P carpal tunnel release History of tonsillectomy History of ERCP Social History Smoking Status: Never smoker ROS ROS ED ROS Narrative Review of systems is positive for shortness of breath at rest and on exertion. No fevers or chills, no cough. Positive weight gain. Admittedly stopped taking his water pill 1 week ago when his symptoms started to develop. EXAM Physical Exam Narrative Exam Narrative: Afebrile. Vital signs noted. Nontoxic-appearing. Cardiovascular examination reveals a bradycardia. Lungs are clear to auscultation bilaterally anteriorly and posteriorly, no overt wheezing or rales. Moving a good amount of air. Abdomen is soft and nontender without guarding or rebound. Positive bowel sounds. Neurological examination nonfocal, nonlateralizing. Chronic bilateral lower extremity lymphedema noted without crepitance. Const Vital Signs: 02/15/25 12:52 02/15/25 12:59 02/15/25 13:10 Temperature 97.1 F L Temperature Source Temporal Pulse Rate 50 L Respiratory Rate 24 H Respiratory Effort Short of Breath Respiratory Depth Deep Respiratory Pattern Normal Blood Pressure 187/71 H Blood Pressure Mean 109 Pulse Ox 96 97 Oxygen Delivery Method Room Air Room Air Room Air 02/15/25 13:50 02/15/25 14:00 02/15/25 15:00 Temperature Temperature Source Pulse Rate 46 L 46 L Respiratory Rate 25 H 24 H Respiratory Effort Respiratory Depth Respiratory Pattern Blood Pressure 136/73 H 136/73 H 137/79 H Blood Pressure Mean 94 94 98 Pulse Ox 96 97 97 Oxygen Delivery Method Room Air Room Air 02/15/25 16:00 02/15/25 17:00 02/15/25 18:00 Temperature Temperature Source Pulse Rate 56 L 50 L 52 L Respiratory Rate 24 H 25 H 25 H Respiratory Effort Respiratory Depth Respiratory Pattern Blood Pressure 153/68 H 153/79 H 162/75 H Blood Pressure Mean 96 103 104 Pulse Ox 99 95 94 Oxygen Delivery Method Room Air Room Air Room Air 02/15/25 18:03 Temperature 98 F Temperature Source Pulse Rate 52 L Respiratory Rate 25 H Respiratory Effort Respiratory Depth Respiratory Pattern Blood Pressure 162/75 H Blood Pressure Mean 104 Pulse Ox 94 Oxygen Delivery Method MDM MDM MDM Narrative Medical decision making narrative: Differential diagnosis includes but not limited to CHF exacerbation versus pneumonia versus pneumothorax. History and physical does not support pneumonia. Is not having any chest pain. He denies history of CHF. EKG was obtained and interpreted by myself independently as sinus bradycardia at 48 bpm without ectopy or acute ST changes. No STEMI. Chest x-ray will be obtained as well as CBC, BMP, and BNP. Current pulse ox 96% on room air without evidence of hypoxia. I reviewed his laboratory work and he has slightly elevated white count of 12.1 which I think is nonspecific, hemoglobin normal at 13.4, hematocrit 41.0, platelet count normal at 211. BMP shows chloride of 119 with CO2 low at 12.6, BUN of 17 and creatinine 0.94. Glucose 84. Calcium is low at 5.9. BNP is elevated at 3571. He was administered Lasix 40 mg intravenously for this. Chest x-ray in 1 view shows pulmonary edema. On my individual interpretation, I see no evidence of a pneumothorax. I reviewed the radiology report which confirms my independent interpretation and comments of the possibility of pneumonia. He has not had fever or productive cough so I do not feel antibiotics are indicated. I do think that he might require admission for new onset CHF workup. He has not had an echocardiogram recently. Patient ambulated in the ED and according to staff, while he did not desaturate, he became very tachypneic and flushed in the face. Given his extreme dyspnea on exertion and elevated BNP as well as low calcium 5.9, I discussed patient with the hospitalist for admission. In discussion with Dr. Feng, there was concern regarding his bradycardia. He could have an AV dissociated heart block. Repeat EKG will be obtained. She has discussed the patient with Dr. Velez with cardiology. He is symptomatic with his bradycardia. They will hold his metoprolol and admit him to the ICU. Disposition is admitted in guarded condition. Critical care time 32 minutes. History & Record Review Discussion w/independent historian: Patient Additional record(s) reviewed:: Prior ED visit Lab Data Attestation: I reviewed the patient's lab results. Labs: Laboratory Results - last 24 hr 02/15/25 02/15/25 02/15/25 13:30 14:28 15:50 WBC 12.1 H RBC 4.38 L Hgb 13.4 Hct 41.0 MCV 93.6 MCH 30.6 MCHC 32.7 RDW Std Deviation 47.7 H RDW Coeff of Gisella 13.9 Plt Count 211 MPV 9.7 Immature Gran % (Auto) 0.400 Neut % (Auto) 71.6 H Lymph % (Auto) 15.8 L [place] % (Auto) 11.1 H Eos % (Auto) 0.7 Baso % (Auto) 0.4 Absolute Neuts (auto) 8.7 H Absolute Lymphs (auto) 1.92 Nucleated RBC % 0 Sodium Cancelled 143 Potassium Cancelled 3.3 Chloride Cancelled 119 H Carbon Dioxide Cancelled 12.6 L Anion Gap Cancelled 11 BUN Cancelled 17 Creatinine Cancelled 0.94 Estim Creat Clear Calc Cancelled 88.46 Est GFR (MDRD) Non-Af Cancelled 82 BUN/Creatinine Ratio Cancelled 17.7 Glucose Cancelled 84 Calcium Cancelled 5.9 L* NT pro BNP II 3571 H ABG Data ABG results: ABG 02/15/25 17:36 Specimen Type [facility] Sample Site Not entered VBG pH 7.42 VBG pO2 26 VBG HCO3 23 VBG Total CO2 24 VBG O2 Sat (Calc) 51 VBG Base Excess -2 L POC Mix VBG pCO2 Pt Tmp 35.4 L O2 Delivery Device Not entered Radiography Chest X-Ray - ED: 1 View, Read by ED Physician, Read by Radiologist and CHF Diagnostic Testing: Clinical Impression(s) from Imaging Studies Chest X-Ray 02/15/25 13:40 IMPRESSION: Perihilar interstitial densities may represent pulmonary edema. Pneumonia can not be excluded. Reading Location: [facility]END[facility] TO [facility] Management Discussion w/another healthcare provider: Hospitalist (Dr. Helen Feng) Critical Care Time Critical Care Time: Yes Critical care time (excluding procedures): 30-74 minutes (32), Including time spent:, Discussing w/Consultants, Arranging Admission or Transfer and Performing Direct Patient Care at Bedside Discharge Plan Dx/Rx/DC Orders Clinical Impression: SOB (shortness of breath), CHF (congestive heart failure), Hypocalcemia, Dyspnea on exertion, Symptomatic bradycardia, AV heart block Disposition Disposition: Acute Care Hospital [facility]
--- OUTSIDE RECORDS SUMMARY | 2025-02-15 13:21 | XMS RPT_ITS | CCD ---
Author Organization [facility]iniSyme Care Team Providers Care Information And Referral Director Name Role Phone Bruna Chowdary Unavailable Unavailable Scott Pal MD Unavailable Scott Pal MD Unavailable Lia PT, Caroline Unavailable John Garcia MD Unavailable Agnes Del Rosario MD Primary Care Provider Scott Pal MD Unavailable Scott Pal MD Unavailable Lia PT, Caroline Unavailable John Garcia MD Unavailable Agnes Del Rosario MD Primary Care Provider Scott Pal MD Unavailable Lia PT, Caroline Unavailable Agnes Del Rosario MD Primary Care Provider Scott Pal MD Unavailable Scott Pal MD Unavailable Lia PT, Caroline Unavailable John Garcia MD Unavailable Agnes Del Rosario MD Primary Care Provider Lia PT, Caroline Unavailable John Garcia MD Unavailable Bruna Chowdary Attending Unavailable Cebul III, Dr. Macario Dobbins Primary Care Unava ilable Self, Referral Referring Unavailable Cebul III, Dr. 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 Franco Primary Care Provider Sang HILL, Dr. Guzman Emergency Provider Zach HILL, Dr. Mendze Admit Provider [phone] Dr. Andrea Serrano DO Other Provider Wally FORD, Dr. Altagracia Chaidez Attending Provider Shahzad FORD, Dr. Beau Jose Other Provider Wally FORD, Dr. Altagracia Chaidez Referring Provider Wally FORD, Dr. Altagracia Chaidez Other Provider [phone] Dr. Alex Sher DO Attending Provider Robbie FORD, Dr. Martin Attending Provider [phone] Dr. Salvador Del Rosario MD Referring Provider Dr. Alex Sher DO Other Provider Ever SUGAR HOUSE SUPERVISOR.Amanda [place] Unavailable Carin FORD, Dr. Franco Primary Care Provider Rossy FORD, Dr. Oreilly Attending Provider Rossy FORD, Dr. Oreilly Referring Provider Carin FORD, Dr. Franco Referring Provider [phone] Nikky HILL, Dr. Johnson Attending Provider Nikky HILL, Dr. Johnson Other Provider Farooq FORD, Isaias Attending Provider Farooq FORD, Isaias Emergency Provider Chicho FORD, Dr. Simmons Attending Provider Rosie FORD, Dr. Esparza Attending Provider KIRUPAHARAN, PRADHAB Attending Unavailable VIRIDIANA, MARQUITA Referring Unavailable BURSLEY, CHRISTOPHER B Primary Care Unavailab le KIRUPAHARAN, PRADHAB Attending Unavailable BURSLEY, CHRISTOPHER B Primary Care Unavailab le BURSLEY, CHRISTOPHER B Primary Care Unavailab le KIRUPAHARAN, PRADHAB Attending Unavailable SADANA, DIVYAJOT Attending Unavailable SADANA, DIVYAJOT Admitting Unavailable BRANDY FRAGOSO Referring Unavailable BURSLEY, CHRISTOPHER B Primary Care Unavailab le KIRUPAHARAN, PRADHAB Referring Unavailable BURSLEY, CHRISTOPHER B Primary Care Unavailab le Knoble 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, Amanda Unavailable Lourdes FORD, Dr. Licona Attending Provider Unavaila ble Nikky HILL, Dr. Johnson Referring Provider Kim FORD, Dr. Jackson Emergency Provider de Kip HILL, Dr. Caldera Admit Provider Unavail able de Kip DO, Dr. Caldera Attending Provider Unav ailable de Kip DO, Dr. Caldera Other Provider Unavail able Dr. Marleny Tena DO Attending Provider Dr. Marleny Tena DO Other Provider Kojo BONILLA, John Unavailable Unavailable Carin FORD, Dr. Franco Primary Care Provider Dr. Salvador Del Rosario MD Referring Provider Nikky HILL, Dr. Johnson Attending Provider Nikky HILL, Dr. Johnson Other Provider Melanie Man Attending Provider [phone] AGNES DEL ROSARIO Primary Care Unavailab le PODLOGAR, MARILIA Attending Unavailable AGNES DEL ROSARIO Primary Care Unavailab le JOSÉGHAZALA Attending Unavailable AGNES DEL ROSARIO Primary Care Unavailab le AGNES DEL ROSARIO Primary Care Unavailab le PODLOGAR, MARILIA Referring Unavailable AGNES DEL ROSARIO Primary Care Unavailab le AGNES DEL ROSARIO Referring Unavailab le GOLIASYOGESH Attending Unavailable AGNES DEL ROSARIO Primary Care Unavailab le AGNES DEL ROSARIO Attending Unavailab le AGNES DEL ROSARIO Primary Care Unavailab le PODLOGAR, MARILIA Attending Unavailable AGNES DEL ROSARIO Primary Care Unavailab le PODLOGAR, MARILIA Referring Unavailable AGNES DEL ROSARIO Primary Care Unavailab le KIRUPAHARAN, PRADHAB Referring Unavailable AGNES DEL ROSARIO Primary Care Unavailab le PODLOGAR, MARILIA Attending Unavailable AGNES DEL ROSARIO Primary Care Unavailab le PODLOGAR, MARILIA Referring Unavailable AGNES DEL ROSARIO Primary Care Unavailab le PODLOGAR, MARILIA Attending Unavailable AGNES DEL ROSARIO Primary Care Unavailab le PODLOGAR, MARILIA Attending Unavailable AGNES DEL ROSARIO Primary Care Unavailab le PODLOGAR, MARILIA Attending Unavailable AGNES DEL ROSARIO Primary Care Unavailab le PODLOGAR, MARILIA Attending Unavailable AGNES DEL ROSARIO Primary Care Unavailab le PODLOGAR, MARILIA Referring Unavailable AGNES DEL ROSARIO Primary Care Unavailab le AGNES DEL ROSARIO Primary Care Unavailab le KIRUPAHARAN, PRADHAB Referring Unavailable AGNES DEL ROSARIO Primary Care Unavailab le PODLOGAR, MARILIA Attending Unavailable AGNES DEL ROSARIO Primary Care Unavailab le PODLOGAR, MARILIA Referring Unavailable AGNES DEL ROSARIO Primary Care Unavailab le AGNES DEL ROSARIO Referring Unavailab le GOLIASYOGESH Attending Unavailable AGNES DEL ROSARIO Primary Care Unavailab le AGNES DEL ROSARIO Referring Unavailab le AGNES DEL ROSARIO Primary Care Unavailab le AGNES DEL ROSARIO Referring Unavailab YOGESH Barbosa Attending Unavailable COLE CAMPOS Attending Unavailable CARIN, CHRISTOPHER B Primary Care Unavailab alverto Del Rosario MD, Dr. Franco Primary Care Provider Carin FORD, Dr. Franco Referring Provider Nikky DO, Dr. Johnson Attending Provider Nunn DO, Dr. Caldera Referring Provider Unav ailable Mallika DO, Dr. Suggs Referring Provider Carin, Salvador Primary Care Unavailable Sailors, Denilson Referring Unavailable Sailors, Denilson Attending Unavailable FriendAlex Referring Unavailable Livan Freed Attending Unavailable Hafsaley, Salvador Primary Care Unavailable Werner Nunn Consulting Unavailable Werner Nunn Admitting Unavailable Hafsaley, Salvador Primary Care Unavailable Marleny Tena Attending Unavailable Marleny Tena Consulting Unavailable Hafsaley, Salvador Primary Care Unavailable Bursley, Salvador Referring Unavailable Troy Valentino Attending Unavailable Hafsaley, Salvador Primary Care Unavailable Isaias Trivedi Attending Unavailable Werner Nunn Attending Unavailable Andrea Serrano Consulting Unavailable Altagracia Lo Attending Unavailable eller Andrea Admitting Unavailable Bursley, Salvador Primary Care Unavailable Koram, Altagracia Kaylynn Consulting Unavailable FriendAlex Consulting Unavailable FriendAlex Attending Unavailable Bursley, Salvador Referring Unavailable Bursley, Salvador Primary Care Unavailable FriendAlex Consulting Unavailable FriendAlex Attending Unavailable Bursley, Salvador Primary Care Unavailable Bursley, Salvador Referring Unavailable FriendAlex Attending Unavailable Bursley, Salvador Primary Care Unavailable Bursley, Salvador Referring Unavailable Friend, Alex Attending Unavailable Bursley, Salvador Primary Care Unavailable Bursley, Salvador Referring Unavailable Mosteller, Andrea Consulting Unavailable Mosteller, Andrea Admitting Unavailable Koram, Altagracia Kaylynn Attending Unavailable Bursley, Salvador Primary Care Unavailable Beau Pike Consulting Unavailable Bursley, Salvador Referring Unavailable Melanie Guajardo Attending Unavailable Bursley, Salvador Primary Care Unavailable Bursley, Salvador Primary Care Unavailable Isaias Velez Attending Unavailable Friend, Alex Attending Unavailable Marleny Tena Referring Unavailable Bursley, Salvador Primary Care Unavailable Friend, Alex Attending Unavailable Bursley, Salvador Referring Unavailable Friend, Alex Attending Unavailable Bursley, Salvador Primary Care Unavailable Bursley, Salvador Referring Unavailable Werner Nunn Admitting Unavailable Bursley, Salvador Primary Care Unavailable Marleny Tena Attending Unavailable Werner Nunn Consulting Unavailable Leo Hansen Attending Unavailable Bursley, Salvador Primary Care Unavailable Friend, Alex Attending Unavailable Bursley, Salvador Primary Care Unavailable Bursley, Salvador Referring Unavailable de Werner Shin Referring Unavailable Beau Pike Consulting Unavailable Koram, Altagracia Kaylynn Referring Unavailable Mario Avalos Attending Unavailable Friend, Alex Attending Unavailable Andrea Serrano Attending Unavailable Friend, Alex Attending Unavailable Friend, Alex Consulting Unavailable Bursley, Salvador Primary Care Unavailable Bursley, Salvador Referring Unavailable Friend, Alex Attending Unavailable Koram, Altagracia Kaylynn Referring Unavailable Bursley, Salvador Primary Care Unavailable Macario Duran MD Primary Care Provider BRUNA CHOWDARY Attending Unavailable MACARIO DURAN Primary Care Unavailable Allergies Allergy Classification Reported Allergen(s) Allergy Type Date of Onset Reaction(s) Facility amLODIPine (2 sources) amLODIPine Drug Allergy 7 [facility] Macrolides (antibiotic) (2 sources) Azithromycin Drug Allergy 5 [facility] (3 sources) Azithromycin Drug Allergy 4 [facility] (20 sources) amLODIPine; Translations: [AMLODIPINE BESYLATE] Drug Allergy 7 [facility] (20 sources) Azithromycin; Translations: [AZITHROMYCIN] Drug Allergy 5 [facility] Work Phone: (20 sources) Venom-Wasp; Translations: [VENOM-WASP] Propensity to adverse reactions 5 [facility] Work Phone: (8 sources) bee venom protein (honey bee) Propensity to adverse reactions 5 [facility] (1 source) Azithromycin Drug Allergy [facility] Repository (1 source) venom-wasp Drug allergy (disorder) [facility] (1 source) bee venom protein (honey bee) Drug allergy (disorder) 5 [facility] Repository Medications Current Medications Medication Drug Class(es) Dates Sig (Normalized) Sig (Original) acetaminophen 500 mg oral tablet (20 sources) Start: 12-25-2024 take 2 tablets by mouth once daily Acetaminophen (Acetaminophen Extra Strength) 500 mg tablet Active 1000 mg PO DAILY December 25, 2024 12:00am acetaminophen (T ylenol 8 HOUR) 650 mg ER tablet Take 1 tablet (650 mg) by mouth if needed. Active Comment on above: Take 650 mg by mouth as needed. apixaban 5 mg oral tablet (20 sources) Factor Xa Inhibitor Start: 11-22-2023 End: 09-25-2024 take 1 tablet by mouth twice daily Apixaban (Eliquis) 5 mg tablet Active 5 mg PO TWICE A DAY March 26, 2024 1:00am blood thinner Start: 10-24-2023 End: 05-21-2024 take 2 tablets [...] tablet Discontinued 81 mg PO DAILY@0800 90 0 September 05, 2016 12:00am October 22, 2023 3:59pm Comment on above: Take 81 mg by mouth once daily. atorvastatin 40 mg oral tablet (20 sources) HMG-CoA Reductase Inhibitor Start: 09-06-19 End: 03-07-20 take 1 tablet by mouth once daily atorvastatin (LIPITOR) 40 mg tablet Indications: Hyperlipidemia LDL goal Take 1 tablet by mouth once daily. 90 tablet 3 08/21/2024 Active Comment on above: Take 1 tablet by lazaro once daily. benzonatate 100 mg oral capsule (1 source) Non-narcotic Antitussive Start: 05-23-19 End: 06-07-19 take 1 capsule by mouth every eight hours as needed for cough benzonatate (TESSALON PERLE) 100 mg capsule Indications: URI, acute Take 1 capsule by mouth every 8 hours as needed for cough for up to 15 days. 30 capsule 0 05/23/2022 06/07/2022 Active Comment on above: Take 1 capsule by mo [facility] every 8 hours as needed for cough for up to 15 days. CPAP (20 sources) Start: 02-12-20 CPAP Indications: MARTIN on CPAP AutoPAP [id number]. Mask per preference, tubing, filters, humidity. Lifetime Supplies. Dx: G47.33. Fax 30 day compliance report to [phone]. 1 Each 999 02/11/2022 Suspended Start: 02-11-2022 CPAP Indicatio ns: MARTIN on CPAP AutoPAP [id number]. Mask per preference, tubing, filters, humidity. Lifetime Supplies. Dx: G47.33. Fax 30 day compliance report to [phone]. 1 Each 999 02/11/2022 Active Start: 02-11-2021 [...] Active Start: 08-10-2016 End: 02-11-2022 CPAP AutoPAP [id number]. Mask per preference, tubing, filters, humidity. Lifetime Supplies. Dx: G47.33. Fax 30 day compliance report to [phone]. 1 Device 0 08/10/2016 02/11/2022 Discontinued Start: 08-10-2016 CPAP AutoPAP [id number]. Mask per preference, tubing, filters, humidity. Lifetime Supplies. Dx: G47.33. Fax 30 day compliance report to [phone]. 1 Device 0 08/10/2016 Active Comment on above: AutoPAP [id number]. M ask per preference, tubing, filters, humidity. Lifetime Supplies. Dx: G47.33. Fax 30 day compliance report to [phone]. Please provide mask fitting. Pt with subjective and some degree objective leaks. Prefers nasal type mask. Thank you. DME = [employer] AutoPAP [id number]. Mask per preference, tubing, filters, humidity. Lifetime Supplies. Dx: G47.33. Fax 30 day compliance report to [phone]. CPAP/BIPAP/OTHER (7 sources) Start: 5 End: CPAP/BIPAP/OTHER Indications: MARTIN on CPAP APAP 10-20 cmH2O DME [facility] 1 each 10/31/2024 03/17/2052 Active doxycycline hyclate 100 mg oral tablet (5 sources) Tetracycline-class Drug Start: 4 End: 4 take 1 tablet by mouth twice daily doxycycline (VIBRA-TABS) 100 mg tablet Indications: Pain and swelling of right lower leg , Cellulitis of skin Take 1 tablet by mouth two times a day for 10 days. 20 tablet 01/22/2024 02/01/2024 Active gabapentin 300 mg oral capsule (20 sources) Anti-epileptic Agent Start: 4 take 1 capsule by mouth at bedtime Gabapentin 300 mg capsule Active 300 mg PO AT BEDTIME October 22, 2023 12:00am nerve pain take 1 capsule by mo ut three times daily gabapentin (Neurontin) 300 mg capsule Ta ke 1 capsule (300 mg) by mouth 3 times a day. Active Comment on above: Take 300 mg by mouth daily at bedtime. hydroCHLOROthiazide 25 mg oral tablet (20 sources) Thiazide Diuretic Start: take 1 tablet by mouth once daily hydroCHLOROthiazide (HYDRODiuril) 25 mg tablet Take 1 tablet (25 mg) by mouth once daily. 11/15/2024 Active Start: 01-23-2023 End: 11-13-2024 take 1 tablet by mouth once daily hydroCHLOROthiazide 25 mg tablet Indications: Essential hypertension, benign Take 1 tablet by mouth once daily. 90 tablet 1 11/15/2024 Active Start: 03-31-2021 End: 05-11-2022 take 1 tablet by mouth once daily hydroCHLOROthiazide (HYDRODIURIL, ESIDRIX) 25 mg tablet Indications: Essential hypertension, benign Take 1 tablet by mouth once daily. 90 tablet 1 05/11/2022 Active Comment on above: Take 1 tablet by lazaro once daily. hydrocortisone 10 mg/ml / neomycin 3.5 mg/ml / polymyxin b 36414 unt/ml otic suspension (1 source) Aminoglycoside Antibacterial, Polymyxin-class Antibacterial, Corticosteroid Start: 11-11-2021 End: 11-18-2021 jaoglgfm-mhujalagr-rb drocortisone (CORTISPORIN) 3.5-10,000-1 mg/mL-unit/mL-% otic suspension Use [...] 140 g 1 12/19/2023 Active Start: 01-04-2019 ammonium lacta te (Lac-Hydrin) 12 % lotion Apply 1 Application topically if needed. 01/04/2019 Active Start: 01-04-2019 888763 Medicat ion ammonium lactate 12 % lotion AmLactin 12 % lotion 12 % 1 Application to affected area daily 01/04/2019 Prior History No Longer Active levothyroxine sodium 0.125 mg oral tablet (20 sources) l-Thyroxine Start: 03-29-2022 End: 11-04-2024 take 1 tablet by mouth once daily Levothyroxine 125 mcg tablet Active 125 ug PO DAILY March 26, 2024 1:00am disorder of thyroid gland Start: 04-06-2021 take 1 tablet by lazaro [...] 12:00am March 26, 2024 9:48am Start: 02-14-2014 [id number] Medicat ion levothyroxine 200 mcg tablet Synthroid 200 mcg 02/14/2014 Active (Outside) Comment on above: Take 1 tablet by lazaro th once daily. TAKE 1 TABLET BY MOUTH ONCE DAILY. TAKE ON EMPTY STOMACH. FOR THYROID TAKE 1 TABLET BY LAZARO TH EVERY DAY ON AN EMPTY STOMACH FOR THYROID lisinopril 40 mg oral tablet (20 sources) Angiotensin Converting Enzyme Inhibitor Start: 02-14-2014 135346 Medication lisinopril lisinopril 20 mg 02/14/2014 Active (Outside) Start: 01-31-2013 End: 07-26-2024 take 1 tablet by mouth once daily Lisinopril 40 MG tablet Active 40 mg PO DAILY January 31, 2013 12:00am blood pressure Comment on above: Take 1 tablet by [...] (20 sources) beta-Adrenergic Adebayo Start: 06-16-19 End: 05-04-19 take 1 tablet by mouth once daily Metoprolol Succinate 50 mg tablet extended release 24 hr Active 50 mg PO DAILY October 22, 2023 12:00am blood pressure Start: 01-23-2023 End: 06-16-2023 take 1 tablet [...] th once daily. Multivitamin (Daily Multi-Vitamin) tablet (7 sources) Start: 08-31-2024 Multivitamin (Daily Multi-Vitamin) tablet Active 1 {tbl} PO DAILY August 31, 2024 12:00am MULTIVITAMIN,TX-MINERA LS ORAL TAB (20 sources) Start: 01-14-2005 take 1 tablet by mouth once daily MULTIVITAMIN,TX-BOOSTER PLANT OPERATOR ALS ORAL TAB Take one(1) tablet daily. [...] / HYDROcodone bitartrate 5 mg oral tablet (7 sources) Opioid Agonist Start: 08-31-2024 End: 09-17-2024 Hydrocodone-Aceta minophen 5-325 mg tablet Discontinued 0.5 - 1 {tbl} PO THREE TIMES A DAY as needed for pain August 31, 2024 12:00am September 17, 2024 9:43am amLODIPine 5 mg oral tablet (10 sources) Dihydropyridine Calcium Channel Adebayo Start: 09-04-2016 [...] dental procedure. cefdinir 300 mg oral capsule (18 sources) Cephalosporin Antibacterial Start: 03-28-2024 End: 08-13-2024 take 1 capsule by mouth twice daily Cefdinir 300 mg capsule Discontinued 300 mg PO TWICE A DAY 10 0 March 28, 2024 1:00am July 02, 2024 [...] (3 sources) Nucleoside Metabolic Inhibitor Start: 01-04-2019 [id number] Medication fluorouracil 5 % topical cream fluorouracil [...] with meals. niacinamide 500 mg oral tablet (10 sources) Start: 09-04-2016 End: 10-22-2023 take 1 tablet by mouth once daily Niacinamide (Niacin (Niacinamide)) 500 MG tablet Discontinued 500 mg PO DAILY September 04, 2016 12:00am October 22, 2023 4:01pm omeprazole 20 mg delayed release oral tablet (10 sources) Proton Pump Inhibitor Start: 09-04-2016 End: [...] mg / trimethoprim 160 mg oral tablet (16 sources) Dihydrofolate Reductase Inhibitor Antibacterial, Sulfonamide Antimicrobial Start: 01-26-2024 End: 04-01-2024 take 1 tablet by mouth every twelve hours sulfamethoxazole-trimethoprim (BACTRIM DS) 800-160 mg per tablet Take 1 tablet by mouth every 12 hours. 01/26/2024 04/01/2024 Discontinued (Course of therapy completed) Start: 01-26-2024 End: 03-26-2024 Sulfamethoxazole-Trimethopri m (Bactrim Ds) 800-160 mg tablet Discontinued 1 {tbl} PO TWICE A DAY 14 0 January 26, 2024 12:00am March 26, 2024 3:06am tretinoin 1 mg/ml topical cream (3 sources) Retinoid Start: 02-28-2017 Medicat ion tretinoin 0.1 % topical cream tretinoin 0.1 % topical cream 0.1 % 1 Application topically daily 02/28/2017 Prior History No Longer Active Problems Active Problems Problem Classification Problem Date Documented Da te Episodic/Chronic Acute and unspecified renal failure (9 sources) Acute renal failure syndrome; Translations: [Acute kidney failure, unspecified] Onset: 5 10-22-2024 Episodic Administrative/social admission (1 source) Advance directive discussed with patient; Translations: [Other specified counseling] Episodic Biliary tract disease (20 sources) Biliary stricture; Translations: [Obstruction of bile duct] Onset: 5 07-04-2024 Chronic Biliary tract disease (20 sources) Calculus of bile duct with obstruction; Translations: [Calculus of bile duct without cholangitis or cholecystitis with obstruction] Onset: 4 04-01-2024 Episodic Chronic kidney disease (20 sources) Chronic kidney disease stage 3A ; Translations: [Stage 3a chronic kidney disease] Onset: 0 04-29-2020 Chronic Chronic kidney disease (3 sources) Chronic kidney disease; Translations: [Stage 3a chronic kidney disease (HCC)] Onset: 0 Complications of surgical procedures or medical care (7 sources) Drug therapy finding; Translations: [Unspecified adverse effect of drug or medicament, initial encounter] 09-08-2024 Episodic Congestive heart failure; nonhypertensive (20 sources) Right ventricular failure; Translations: [Right heart failure, unspecified] Onset: 4 10-24-2023 Chronic Coronary atherosclerosis and other heart disease (20 sources) Coronary arteriosclerosis; Translations: [Atherosclerotic heart disease of [place] coronary artery without angina pectoris] Onset: 7 09-14-2016 Chronic Delirium, dementia, and amnestic and other cognitive disorders (20 sources) Senile asthenia; Translations: [Age-related physical debility] Onset: 2 Chronic Diseases of white blood cells (8 sources) Leukocytosis; Translations: [Elevated white blood cell count, unspecified] 03-26-2024 Chronic Disorders of lipid metabolism (20 sources) Hyperlipidemia; Translations: [Hyperlipidemia, unspecified] Onset: 7 09-14-2016 Chronic Essential hypertension (20 sources) Benign essential hypertension; Translations: [Essential (primary) hypertension] Onset: 5 05-13-2019 Chronic Comment on above: CONTROLLED WITH MED Fever of unknown origin (16 sources) Fever; Translations: [Fever, unspecified] Onset: 5 10-22-2024 Episodic Fluid and electrolyte disorders (8 sources) Lactic acidosis; Translations: [Lactic acidosis] 10-22-2024 Episodic Hyperplasia of prostate (20 sources) Benign prostatic hypertrophy with outflow obstruction; Translations: [Benign prostatic hyperplasia with lower urinary tract symptoms] Onset: 7 05-10-2016 Chronic Joint disorders and dislocations; trauma-related (20 sources) Derangement of right knee; Translations: [Unspecified internal derangement of right knee] Onset: 3 05-07-2012 Chronic Nausea and vomiting (20 sources) Nausea and vomiting; Translations: [Nausea with vomiting, unspecified] Onset: 5 04-05-2024 Episodic Neoplasms of unspecified nature or uncertain behavior (11 sources) Neoplasm of unspecified behavior of bone, soft tissue, and skin; Translations: [Neoplasm of uncertain behavior of skin] Onset: 5 01-30-2025 Episodic Nonspecific chest pain (10 sources) Chest pain; Translations: [Chest pain, unspecified] 09-04-2016 Episodic Osteoarthritis (20 sources) Arthritis of hip; Translations: [Unilateral primary osteoarthritis, unspecified hip] Onset: 9 Resolved: 0 06-08-2018 Chronic Other acquired deformities (10 sources) Scoliosis of lumbar spine; Translations: [Scoliosis, unspecified] 09-17-2024 Chronic Other acquired deformities (10 sources) Lumbar spondylolisthesis; Translations: [Spondylolisthesis, lumbar region] 09-17-2024 Episodic Other aftercare (10 sources) Long-term current use of anticoagulant; Translations: [custodial (current) use of anticoagulants] 12-19-2023 Episodic Other aftercare (2 sources) Post-discharge follow-up; Translations: [Encounter for follow-up examination after completed treatment for conditions other than malignant neoplasm] 04-01-2024 Episodic Other aftercare (1 source) Encounter for follow-up examination after completed treatment for conditions other than malignant neoplasm; Translations: [Hospital discharge follow-up] Onset: 5 Episodic Other and unspecified benign neoplasm (6 [...] 1 Episodic Other and unspecified benign neoplasm (1 source) Benign neoplasm of soft tissue; Translations: [Melanocytic nevi, unspecified] 01-30-2025 Episodic Other and unspecified benign neoplasm (2 sources) Melanocytic nevi, unspecified; Translations: [Melanocytic nevi, unspecified] Onset: 5 Episodic Other circulatory disease (10 sources) Elevated blood pressure; Translations: [Elevated blood-pressure [...] leg] 01-19-2024 Episodic Other connective tissue disease (10 sources) Synovial cyst of lumbar spine; Translations: [...] Chronic Other diseases of kidney and ureters (8 sources) Renal impairment; Translations: [Disorder of kidney and ureter, unspecified] 03-26-2024 Episodic Other diseases of veins and lymphatics (20 sources) Peripheral venous insufficiency; Translations: [Venous insufficiency (chronic) (peripheral)] Onset: 0 04-29-2020 Episodic Other diseases of veins and lymphatics (2 sources) Venous insufficiency (chronic) (peripheral); Translations: [Venous insufficiency (chronic) (peripheral)] Onset: 0 Episodic Other diseases of veins and lymphatics (1 source) Stasis dermatitis; Translations: [Venous insufficiency (chronic) (peripheral)] 01-30-2025 Episodic Other ear and sense organ disorders [...] [History of falling] Episodic Other liver diseases (9 sources) Elevated liver enzymes level; Translations: [Abnormal levels of other serum enzymes] 04-05-2024 Episodic Other nervous system disorders (20 sources) Bilateral carpal tunnel syndrome; Translations: [Carpal tunnel syndrome, bilateral upper limbs] Onset: 0 11-20-2019 Chronic Other nervous system disorders (2 sources) Unsteady when walking; Translations: [Unsteadiness on feet] 11-01-2023 Episodic Other nervous system disorders (10 sources) Impairment of balance; Translations: [Other abnormalities of gait and mobility] 09-17-2024 Episodic Other non-epithelial cancer of skin (15 sources) Personal history of other malignant neoplasm of skin; Translations: [History of malignant neoplasm of skin excluding melanoma] Onset: 9 01-30-2025 Episodic Other non-traumatic joint disorders (4 sources) [...] Translations: [BMI 38.0-38.9,adult] Onset: 4 Chronic Other nutritional; endocrine; and metabolic disorders (1 source) Morbid (severe) obesity due to excess calories; Translations: [Morbid (severe) obesity due to excess calories] Onset: 5 Chronic Other nutritional; endocrine; and metabolic disorders (1 source) Body mass index (BMI) 40.0-44.9, adult; Translations: [Body mass index [BMI] 40.0-44.9, adult] Onset: 5 Chronic Other screening for suspected conditions (not mental disorders or infectious disease) (6 sources) Encounter for screening for malignant neoplasm of skin; Translations: [Patient encounter status] Onset: 1 01-30-2025 Episodic Other skin disorders (3 sources) Actinic keratosis Onset: 1 Episodic Other skin disorders (6 sources) Actinic keratosis Onset: 6 Episodic Other skin disorders (6 sources) Other specified follicular disorders Onset: 7 Episodic Other skin disorders (8 sources) Other melanin hyperpigmentation; Translations: [Other melanin hyperpigmentation] Onset: 6 Episodic Other skin disorders (6 sources) Inflamed seborrheic keratosis Onset: 8 Episodic Other skin disorders (8 sources) Other seborrheic keratosis; Translations: [Other seborrheic keratosis] Onset: 6 Episodic Other skin disorders (1 source) Eruption; Translations: [Rash and other nonspecific skin eruption] 10-09-2023 Episodic Other skin disorders (3 sources) Asteatosis cutis; Translations: [Xerosis cutis] Onset: 5 01-15-2024 Episodic Other skin disorders (2 sources) Lentiginosis; Translations: [Other melanin hyperpigmentation] 01-15-2024 Episodic Other skin disorders (2 sources) Seborrheic keratosis; Translations: [Other seborrheic keratosis] 01-15-2024 Episodic Other skin disorders (1 source) Xerosis cutis; Translations: [Xerosis cutis] Onset: 5 Episodic Other upper respiratory infections (1 source) [...] Onset: 4 10-26-2023 Chronic Pulmonary heart disease (16 sources) H/O: pulmonary embolus; Translations: [Personal history of pulmonary embolism] Onset: 4 11-09-2023 Episodic Comment on above: Placed on Eliquis. Residual codes; unclassified (20 sources) Obstructive sleep apnea syndrome; Translations: [Obstructive sleep apnea (adult) (pediatric)] Onset: 7 02-05-2021 Chronic Residual codes; unclassified (3 sources) Obstructive sleep apnea (adult) (pediatric); Translations: [MARTIN (obstructive sleep apnea)] Onset: 2 Chronic Residual codes; unclassified (1 source) Edema of lower extremity; Translations: [Localized edema] 12-19-2023 Episodic Residual codes; unclassified (1 source) Pain; Translations: [Pain, unspecified] 01-18-2024 Episodic Residual codes; unclassified (8 sources) Past history of procedure; Translations: [Other specified postprocedural states] 10-22-2024 Episodic Residual codes; unclassified (1 source) Other specified postprocedural states; Translations: [Other specified postprocedural states] Onset: 5 Episodic Spondylosis; intervertebral disc disorders; other back problems (20 sources) Cervical radiculopathy; Translations: [Radiculopathy, cervical region] Onset: 1 Episodic Thyroid disorders (20 sources) Hypothyroidism; Translations: [Hypothyroidism, unspecified] Onset: 9 04-30-2015 Chronic Unclassified (3 sources) Verruca Onset: 1 Unclassified (3 sources) Angioma Onset: 1 Unclassified (3 sources) Chronic solar damage Onset: 1 Unclassified (3 sources) Seborrheic Keratosis Onset: 1 Unclassified (3 sources) Lentigines Onset: 1 Unclassified (3 sources) Call to schedule an appointment Unclassified (1 source) Obesity, Class III, BMI 40-49.9 (morbid obesity); Translations: [Obesity, Class III, BMI 40-49.9 (morbid obesity)] Onset: 3 Unclassified (1 source) Acidosis, unspecified; Translations: [Acidosis, unspecified] Onset: 5 Unclassified (1 source) Low back pain, unspecified; Translations: [Low back pain, unspecified] Onset: 5 Unclassified (1 source) Patient encounter status 01-30-2025 Past or Other Problems Problem Classification Problem Date Documented Da te Episodic/Chronic Abdominal pain (20 sources) Right flank pain; Translations: [Unspecified abdominal pain] Onset: 02-04-2013 Resolved: 05-09-2014 05-09-2014 Episodic Calculus of urinary tract (20 sources) Kidney stone; Translations: [Calculus of kidney] Onset: 02-04-2013 Resolved: 05-09-2014 05-09-2014 Episodic Diabetes mellitus without complication (5 sources) Increased glucose level; Translations: [Other abnormal glucose] Onset: 08-15-2024 Episodic E Codes: Fall (2 sources) Fall [...] knee, initial encounter] Onset: 01-29-2024 01-29-2024 Episodic Other aftercare (1 source) second baker (current) use of anticoagulants; Translations: [custodial (current) use of anticoagulants] Onset: 04-08-2024 Episodic [...] kidney, acquired] Onset: 02-14-2013 02-14-2013 Episodic Other injuries and conditions due to [...] on feet] Onset: 12-18-2023 12-18-2023 Episodic Other non-traumatic joint disorders (20 sources) Ankle edema; Translations: [Effusion, right ankle] Onset: 02-04-2019 02-04-2019 Episodic Other non-traumatic joint disorders (6 sources) Pain in right knee; Translations: [Pain in joint, lower leg] Onset: 01-18-2024 01-18-2024 Episodic Other skin disorders (20 sources) Ingrowing nail; Translations: [Ingrowing nail] Onset: 11-26-2007 Resolved: 05-09-2014 05-09-2014 Episodic Other skin disorders (1 source) Keratosis pilaris; Translations: [Other specified epidermal thickening] 01-15-2024 Episodic Phlebitis; thrombophlebitis and thromboembolism (20 [...] Translations: [Cellulitis, unspecified] Onset: 01-22-2024 01-22-2024 Episodic Superficial injury; contusion (2 sources) Injury [...] Test Name Value Interpretation Reference Range Facility DERMPATH LAB- DERMATOPATHOLO Anny 01-30-2025 DERMPATH LAB- DERMATOPATHOLOGY Pathology report.total SEE COMMENT Dermatopathology Case: [id number] Authorizing Provider: CHRISSY De Dios Collected: 01/30/2025 1108 Ordering Location: [facility] Received: 01/30/2025 1550 Pathologist: Cuate Calixto MD Specimen: SKIN, Left Breast Path report.final diagnosis SEE COMMENT SKIN, LEFT BREAST, SHAVE BIOPSY: VERRUCOUS KERATOSIS. Electronically signed out by CUATE CALIXTO MD at 1136 EDT Laboratory comment By the signature on this report, the individual or group listed as making the Final Interpretation/Diagnosis certifies that they have reviewed this case. 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 Path report.gross observation SEE COMMENT A: Received in formalin is a 9 x 7 x 10 mm piece of skin. The specimen was trisected. It is pitt in color. It is shave in shape. It was embedded in toto. The specimen was inked. The specimen was grossed by Quyen Foy. [facility] Ambulatory Lesion biopsyon 01-30-2025 Type of biopsy: yu ential Informed consent: discussed and consent obtained Timeout: patient name, date of , surgical site, and procedure verified Procedure prep: Patient was prepped and draped Anesthesia: the lesion was anesthetized in a standard fashion Anesthetic: 1% lidocaine w/ epinephrine 1-100,000 local infiltration Instrument used: DermaBlade Hemostasis achieved with: aluminum chloride Outcome: patient tolerated procedure well Post-procedure details: sterile dressing applied and wound care instructions given Dressing type: petrolatum and bandage [facility] Work Phone: [facility] Work Phone: ERCP Biliary/Pancreason 11-30 ERCP Biliary/Pancreas Normal [facility] ERCP Reporton 12-26-2024 ERCP Report Normal [facility] MR/OP.PROVATon 12-26-2024 MR/OP.PROVAT Normal [facility] MR/POSTOP.ANEon 12-26-2024 MR/POSTOP.ANE [facility] MR/SDUKOPFQ6vc 12-26-2024 MR/POSTOPAN2 [facility] Special Stain Group IIon Special Stain Group II [facility] Comment on above: Performed By: #### P SSII ####[facility] [id number] [place], [address] Surgery Specimen Level Marcela 12-26-2024 Surgery Specimen Level IV [facility] Comment on above: Performed By: #### P SUIV ####[facility] [id number] [place], [address] MR/PAT.ANEon 12-25-2024 MR/PAT.[facility] CNPNon 12-23-2024 [facility] Telephone (FAMPWS) -- IGLESIAFRAN ([id number]) 1945 M Date Time Provider Department 12/23/24 AGNES DEL ROSARIO During your visit today, we recorded the following information about you: Agustín Monroy RN 12/23/2024 8:44 AM Signed Patient calls to request x-ray results of left hand/wrist from 10/08/2024 be faxed to pain management (Dr. Cabezas). Faxed to [phone] per request. Agustín Monroy RN Allergies As of Date: 12/23/2024 Noted Allergy Reaction NORVASC (AMLODIPINE BESYLATE) 09/14/2016 7 - Swelling Comments: pedal edema VENOM-WASP 01/14/2005 7 - Swelling ZITHROMAX (AZITHROMYCIN) 01/14/2005 9 - Itching Date Reviewed: 10/31/2024 Reviewed by: Kulwinder Dickson LPN - Fully Assessed Reason for Visit: Results [95] Prescriptions as of 12/23/2024 - hydroCHLOROthiazide 25 mg tablet Take 1 tablet by mouth once daily. - levothyroxine (SYNTHROID) 125 mcg tablet TAKE 1 TABLET BY MOUTH EVERY DAY ON AN EMPTY STOMACH FOR THYROID - metoprolol succinate ER (TOPROL XL) 50 mg 24 hr tablet Take 1 tablet by mouth once daily. - CPAP/BIPAP/OTHER APAP 10-20 cmH2O DME [facility] - apixaban (ELIQUIS) 5 mg tab(s) Take 1 tablet by mouth two times a day. - atorvastatin (LIPITOR) 40 mg tablet Take [...] mouth daily at bedtime. - CPAP AutoPAP [id number]. Mask per preference, tubing, filters, humidity. [employer]. Dx: G47.33. Fax 30 day compliance report to [phone]. - CPAP Please provide mask fitting. Pt [...] tablet daily. Problem List As Of Date 12/23/2024 Noted Resolved Primary hypertension [I10] 03/11/2005 Hypertrophy of prostate with urinary obstructio*06/01/2006 BLADDER NECK OBSTRUCTION [N32.0] 06/01/2006 Plantar fascial fibromatosis [M72.2] 11/02/2006 05/09/2014 Ingrowing nail [L60.0] 11/26/2007 05/09/2014 Hypothyroidism [E03.9] 03/25/2009 Open fracture of distal phalangeal tuft [NDQ319*08/31/2011 05/09/2014 Internal derangement of right knee [M23.91] [...] 12/18/2023 Encounter Status:Closed by AGUSTÍN MONROY on 12/23/24 [facility] Frederic 11-15-2024 [facility] Telephone (FAMPWS) -- IGLESIAVERÓNICAN Tarah ([id number]) 1945 M Date Time Provider Department 11/15/24 AGNES DEL ROSARIO During your visit today, we recorded the following information about you: Pallavi Katz LPN 11/15/2024 2:32 PM Signed Patient has been identified by name and date of : Type of form: Eliquis Form received via: Fax When form is completed, fax form to fax number provided. Form has been forwarded to: Provider's desk. Provider name: Agnes Amaya LPN, MD 11/19/2024 7:42 AM Signed Forms completed. Alethea Lino MA 11/19/2024 12:11 PM Signed Faxed to # on form Alethea Lino MA Allergies As of Date: 11/15/2024 Noted Allergy Reaction NORVASC (AMLODIPINE BESYLATE) 09/14/2016 7 - Swelling Comments: pedal edema VENOM-WASP 01/14/2005 7 - Swelling ZITHROMAX (AZITHROMYCIN) 01/14/2005 9 - Itching Date Reviewed: 10/31/2024 Reviewed by: Kulwinder Dickson LPN - Fully Assessed Reason for Visit: Forms [913] Prescriptions as of 11/19/2024 - hydroCHLOROthiazide 25 mg tablet Take 1 tablet by mouth once daily. - levothyroxine (SYNTHROID) 125 mcg tablet TAKE 1 TABLET BY MOUTH EVERY DAY ON AN EMPTY STOMACH FOR THYROID - metoprolol succinate ER (TOPROL XL) 50 mg 24 hr tablet Take 1 tablet by mouth once daily. - CPAP/BIPAP/OTHER APAP 10-20 cmH2O DME [facility] - apixaban (ELIQUIS) 5 mg tab(s) Take 1 tablet by mouth two times a day. - atorvastatin (LIPITOR) 40 mg tablet Take [...] mouth daily at bedtime. - CPAP AutoPAP [id number]. Mask per preference, tubing, filters, humidity. [employer]. Dx: G47.33. Fax 30 day compliance report to [phone]. - CPAP Please provide mask fitting. Pt [...] tablet daily. Problem List As Of Date 11/15/2024 Noted Resolved Primary hypertension [I10] 03/11/2005 Hypertrophy of prostate with urinary obstructio*06/01/2006 BLADDER NECK OBSTRUCTION [N32.0] 06/01/2006 Plantar fascial fibromatosis [M72.2] 11/02/2006 05/09/2014 Ingrowing nail [L60.0] 11/26/2007 05/09/2014 Hypothyroidism [E03.9] 03/25/2009 Open fracture of distal phalangeal tuft [KBF140*08/31/2011 05/09/2014 Internal derangement of right knee [M23.91] [...] Unsteady gait [R26.81] 12/18/2023 Encounter Status:Closed by WOR (more content not included)... Normal [facility] Gastroenterology Visit Repor ton 11-06-2024 Gastroenterology Visit Report Normal [facility] CNOVon 10-31-2024 CNOV Office Visit (SLEWST ) -- FRAN PAREKH ([id number]) 1945 M Date Time Provider Department 10/31/24 11:00 AM GHAZALA KUMAR SLEWSCharlene During your visit today, we recorded the following information about you: Pulse Respiration Blood pressure Weight 60/minute 16/minute 149/90 132.9 kg Ghazala Kumar APRN.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 10/31/2024 11:19 AM Signed [facility] Follow up/ Established patient visit Assessment/Plan from last visit: Date of last visit : 02/11/22 ASSESSMENT/PLAN: 1. MARTIN on CPAP - ICD9: 327.23, V46.8, ICD10: G47.33, Z99.89 Patient doing well on PAP therapy. Remains compliant from both subjective and objective standpoints. Reminded to clean and replace PAP equipment regularly. Will order new PAP device with patient's being outdated and appears due for new equipment. Rx sent to [facility]. Advised pt not to drive or operate heavy machinery when sleepy. Follow up in 1 year. Bruno Marquez MD CURRENT VISIT: 10/31/2024 Fran Parekh is an 79 year old male who presents for routine follow up for severe MARTIN on autoCPAP. Needs rx for supplies, DME [facility]. He has no PAP or sleep concerns. I was 5 min late for his appointment. SLEEP APNEA Sleep apnea type : MARTIN, Most Recent Apnea-Hypopnea Index (AHI): 35 on HSAT Treatment : PAP therapy DME: [facility] PAP History: Uses AutoPAP for 8.5 hours per night, 7 nights per week. Current PAP settin-20 cm H2O. Difficulties with AutoPAP: None Reviewed objective PAP compliance data: AHI 3.8 Mask type: nasal mask Mask issues: none There is a perceived benefit by the patient: health benefits -- ---- PATIENT-ENTERED QUESTIONNAIRE SLEEP SCORES: 11/22/2017 Insomnia Severity Index Score 1 08/02/2016 11/22/2017 07/30/2020 PHQ-9 Score 0 0 0 10/27/2022 12/18/2023 09/25/2024 PROMIS Global Health - (T-Scores - the mean of general population = 50. Five points is a clinically meaningful difference.) Physical T-Score 39.8 39.8 42.3 Mental T-Score 48.3 50.8 53.3 11/22/2017 Insomnia Severity Index Score 1 08/02/2016 11/22/2017 07/30/2020 PHQ-9 Score 0 0 0 10/27/2022 12/18/2023 09/25/2024 PROMIS Global Health - (T-Scores - the mean of general population = 50. Five points is a clinically meaningful difference.) Physical T-Score 39.8 39.8 42.3 Mental T-Score 48.3 50.8 53.3 ALLERGIES Allergen Reactions Norvasc [Amlodipine* Swelling pedal edema Venom-Wasp Swelling Zithromax [Azithrom* Itching CURRENT MEDICATIONS: apixaban (ELIQUIS) 5 mg tab(s) Take 1 [...] by mouth daily at bedtime. CPAP AutoPAP [id number]. Mask per preference, tubing, filters, humidity. [employer]. Dx: G47.33. Fax 30 day compliance report to [phone]. CPAP Please provide mask fitting. Pt with subjective and some degree objective leaks. Prefers nasal type mask. Thank you. DME = [facility] acetaminophen 650 mg CR tablet Take 650 mg by mouth as needed. aspirin, enteric coated (ASPIRIN, ENTERIC COATED) 81 mg EC tablet Take 81 mg by mouth once daily. MULTIVITAMIN,TX-MINERALS ORAL TAB Take one(1) tablet daily. CPAP/BIPAP/OTHER APAP 10-20 cmH2O DME [facility] PHYSICAL EXAMINATION: Vital Signs: BP 149/90 Pulse 60 Resp 16 Wt 132.9 kg (293 lb) SpO2 97% BMI 42.61 kg/m? PHYSICAL EXAM: General appearance: NAD Mental status: alert and oriented, able to provide own history Constitutional: obese Skin: No visible rashes on exposed skin Neuro: No focal deficits observed, no tremors Assessment /Plan Martin on cpap (primary encounter diagnosis) Fran Mueller Iglesia is a 79 year old male with severe MARTIN on autoCPAP --Patient is compliant with PAP therapy and reports subjective benefits from treatment --We reviewed PAP compliance report; AHI is normalized - Continue Auto CPAP at 10-20, DME [id number]. - Remember to clean your mask and equipment regularly, as directed. - You should be eligible for new supplies approximately every 3-6 months, depending on your insurance coverage. Contact your Durable Medical Equipment (DME) company for new supplies as needed. - Follow up in 12 mo (more content not included)... 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 Please phone pt to schedule appt with sleep provider. Kulwinder Dickson LPN 10/30/2024 9:19 AM Signed TC to pt. LM to call office, to schedule Cpap follow up appointment with either Dr Marquez or Ghazala Kumar. JOSE Linares Lori, LPN 10/30/2024 10:38 AM Signed Patient scheduled for 10/31/24 with [facility]. Sissy Campbell LPN Allergies As of Date: 10/30/2024 Noted Allergy Reaction NORVASC (AMLODIPINE BESYLATE) 09/14/2016 7 - Swelling Comments: pedal edema VENOM-WASP 01/14/2005 7 - Swelling ZITHROMAX (AZITHROMYCIN) 01/14/2005 9 - Itching Date Reviewed: 10/28/2024 Reviewed by: Eunice Bruce LPN - Fully Assessed Reason for Visit: Sleep appt needed [Other] Prescriptions as of 10/30/2024 - apixaban (ELIQUIS) 5 mg tab(s) Take 1 tablet by mouth two times a day. - atorvastatin (LIPITOR) 40 mg tablet Take [...] mouth daily at bedtime. - CPAP AutoPAP [id number]. Mask per preference, tubing, filters, humidity. Lif[employer] Supp[employer]. Dx: G47.33. Fax 30 day compliance report to [phone]. - CPAP Please provide mask fitting. Pt [...] tablet daily. Problem List As Of Date 10/30/2024 Noted Resolved Primary hypertension [I10] 03/11/2005 Hypertrophy of prostate with urinary obstructio*06/01/2006 BLADDER NECK OBSTRUCTION [N32.0] 06/01/2006 Plantar fascial fibromatosis [M72.2] 11/02/2006 05/09/2014 Ingrowing nail [L60.0] 11/26/2007 05/09/2014 Hypothyroidism [E03.9] 03/25/2009 Open fracture of distal phalangeal tuft [DIO006*08/31/2011 05/09/2014 Internal derangement of right knee [M23.91] [...] [I27.20] 10/25/2023 Unsteady gait [R26.81] 12/18/2023 Encounter Number: (more content not included)... Normal [facility] CNOVon 10-28-2024 CNOV Office Visit (FAMPWS ) -- IGLESIAFRAN R ([id number]) 1945 M Date Time Provider Department 10/28/24 1:20 PM MARILIA OROZCO During your visit today, we recorded the following information about you: Temperature Pulse Respiration Blood pressure 98.1 degrees 54/minute 18/minute 138/76 Weight 132.3 kg Marilia Orozco APRN.CNP 10/28/2024 2:29 PM Signed 10/28/2024 Patient presents with: Hospital F/U Recording using modulR software for draft documentation of the visit was discussed with the patient/authorized passenger service representative; all questions welcomed and answered. Patient/authorized passenger service representative agreed to proceed SUBJECTIVE: This is a 79 year old that is here today for Above Complaints. Fever of Unknown Origin: - Hospitalized from 02/20 to 02/23 for fever, nausea, and emesis. - Underwent chest X-ray, CT abdomen/pelvis, and MRCP during hospitalization. - Treated with IV antibiotics; no definitive cause for fever identified. - No scopes performed during hospital stay. - Follow-up with Dr. Sher scheduled for next week; plans for stent removal and possible colonoscopy. - No recurrence of fever, nausea, or emesis since discharge. - Monitoring diet closely, eating electrode turner and finisher meals, and avoiding snacks. - No new medications prescribed at discharge. - Bowel movements reported as normal. Available hospital records reviewed Transition Care Management (TCM) Initial Outreach PCP Update / Actionable Items N/A Navigation Team Update / Actionable Items Readmission Risk Score: N/A-Out of Network Please assist with scheduling Hospital follow up with Provider in PCP office-Marilia Orozco APRN, CNP within 14 days. Thank you! [facility] Source of Stratification: [facility] Hospital Admission Status: Discharged Readmission Risk Score: N/A OON Patient's zip code: [address] Is zip code within program service area: No Patient meets program referral criteria: No Patient does not qualify for High Risk TCM Home Visit program due to: Patient's zip code is not located within program service area Readmission Risk Score does not meet criteria Disposition: Patient does not qualify for HRTIC, will provide TCM outreach follow-up for 30-days Patient Source: [facility] (OON) Discharge Outreach Summary: Patient feeling much better. 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 Does not like wearing compression stockings. Watching salt intake in diet. States needs to start exercising and eating healthier. Wears CPAP at night. Needs: PCP follow up within 14 days Denies fever, chills, fever, chills, breathing concerns, bleeding concerns. Agreeable to TCM weekly phone calls. [facility] at Home number given to patient. Advised to call if any questions or concerns. Thanks [facility] for the call. Patient discharged from Out of Network-[facility] Discharge date: 10/24/2024 Admitted for: Fever, nausea, vomiting, Cholangitis, ROSSANA Readmission Risk: N/A OON Value-Based Contract: ACO Contact: Contact made with patient: Yes Hi, my name is John Dunlap RN and I am calling from the [facility] on behalf of your Primary Care Provider, Agnes Del Rosario MD. I understand you were recently in [...] Partial mediation review completed, per patient preference Discharge Instructions: Your Discharge Instructions / After Visit Summary (AVS) are important in guiding you through the recovery process. Do you have any questions related to your discharge instructions? No Home Care: Were you discharged with home care? No Equipment: Do you have all the necessary equipment and supplies needed at your home? No Reviewed equipment and supplies needed Facilitated any orders and/or provider updates on behalf of the patient as needed Social: Your mental health is as important to us as your physical health. Would you mind answering a few questions on this topic? Yes On the Storyboard review: Food Insecurity, Transportation, Depression, Housing, and Financial Strain: Complete any SDOHs, listed above, if not addressed in the past 3 months. If all SDOHs, listed above, have been addressed within the last 3 months, confirm resp (more content not included)... Normal [facility] Culture, Blood (WB)on 2024 CUB Blood cultures x2, f rom two different sites No growth in 5 days. Normal [facility] Comment on above: Performed By: #### L 100.0100, L300.4310, L300.3900, M200.1000, L503.6005 ####[facility] [address] [place], [place], [address] Discharge Instructionon 09-30 Discharge Instruction Normal [facility] Urine Cultureon 10-24-2024 URC Pending Mixed Gram Positive Organisms [place] Count 11,000-25,000 MIXC Mixed contaminants. Submit a new specimen if indicated. Normal [facility] Comment on above: Performed By: #### L 400.0001, M100.2200 ####[facility] [address] [place], [place], [address] Absolute lymphocyte countOrd ered By: Werner Shin on 10-23-2024 Lymphocytes Auto (Unsp spec) [#/Vol] 1.75 10*3/uL 0.83-4.51 [facility] Absolute neutrophil countOrd ered By: Werner Shin on 10-23-2024 Neutrophils (Bld) [#/Vol] 7.1 10*3/uL 2.0-7.7 [facility] Anion gap in Serum or Plasma Ordered By: Werner Shin on 10-23-2024 Anion gap [Moles/Vol] 11 mmol/L 5-[address] [facility] Automated lymphocyte count a s percentage of total leukocytesOrdered By: Werner Shin on 10-23-2024 Lymphocytes/100 WBC Auto (Unsp spec) 17.6 % Low 19-41 [facility] BUN/creatinine ratioOrdered By: Werner Shin on 10-23-2024 Urea nitrogen/Creatinine [Mass ratio] 11.9 mg/mg 10-20 [facility] Basophil percentageOrdered B y: Werner Shin on 10-23-2024 Basophils/100 WBC (Bld) 0.2 % 0-1 [facility] Bilirubin, totalOrdered By: Werner Shin on 10-23-2024 Bilirubin [Mass/Vol] 0.89 mg/dL 0.00-1.30 [facility] CBC W/Diff, Automatedon 09-30 Absolute Lymph 1.75 X10 3/uL Normal 0.83-4.51 [facility] Comment on above: Performed By: #### L 500.4050, L100.0100 ####[facility] [address] [place], [address] Absolute Neut 7.1 X10 3/uL Normal 2.0-7.7 [facility] Comment on above: Performed By: #### L 500.4050, L100.0100 ####[facility] [address] [place], [address] Basophils/100 WBC (Bld) 0.2 % Normal 0-1 [facility] Comment on above: Performed By: #### L 500.4050, L100.0100 ####[facility] [address] [place], [address] Eosinophils/100 WBC (Bld) 0.2 % Normal 0-5 [facility] Comment on above: Performed By: #### L 500.4050, L100.0100 ####[facility] [address] [place], [address] Erythrocyte distribution width (RBC) [Ratio] 13.4 % Normal 11.6-14.6 [facility] Comment on above: Performed By: #### L 500.4050, L100.0100 ####[facility] [address] [place], [address] Hematocrit (Bld) [Volume fraction] 40.8 % Normal 40-54 [facility] Comment on above: Performed By: #### L 500.4050, L100.0100 ####[facility] [address] [place], [address] Hemoglobin (Bld) [Mass/Vol] 13.6 g/dL Normal 13.0-16.5 [facility] Comment on above: Performed By: #### L 500.4050, L100.0100 ####[facility] [address] [place], [address] IG% 0.500 Normal 0.0-0.9 [facility] Comment on above: Result Comment: IG% - Immature Granulocytes (promyelocytes, myelocytes andmetamyelocytes) > 1% indicates that a LEFT SHIFT is Present. Performed By: #### L 500.4050, L100.0100 ####[facility] [address] [place], [address] Lymphocytes/100 WBC (Bld) 17.6 % Low 19-41 [facility] Comment on above: Performed By: #### L 500.4050, L100.0100 ####[facility] [address] [place], [address] MCH (RBC) [Entitic mass] 31.9 pg Normal 27.0-32.0 [facility] Comment on above: Performed By: #### L 500.4050, L100.0100 ####[facility] [address] [place], [address] MCHC (RBC) [Mass/Vol] 33.3 g/dL Normal 32-[address] [facility] Comment on above: Performed By: #### L 500.4050, L100.0100 ####[facility] [address] [place], [address] MCV (RBC) [Entitic vol] 95.8 fL High 80-94 [facility] Comment on above: Performed By: #### L 500.4050, L100.0100 ####[facility] [address] [place], [address] Monocytes/100 WBC (Bld) 9.8 % Normal 0-10 [facility] Comment on above: Performed By: #### L 500.4050, L100.0100 ####[facility] [address] [place], [address] Neutrophils/100 WBC (Bld) 71.7 % High 47-70 [facility] Comment on above: Performed By: #### L 500.4050, L100.0100 ####[facility] [address] [place], [address] Nucleated RBC (Bld) [#/Vol] 0 10*3/uL Normal 0-5 [facility] Comment on above: Performed By: #### L 500.4050, L100.0100 ####[facility] [address] [place], [address] Platelet mean volume (Bld) [Entitic vol] 9.4 fL Normal 6.2-12.0 [facility] Comment on above: Performed By: #### L 500.4050, L100.0100 ####[facility] [address] [place], [address] Platelets (Bld) [#/Vol] 178 10*3/uL Normal 150-450 [facility] Comment on above: Performed By: #### L 500.4050, L100.0100 ####[facility] [address] [place], [address] RBC (Bld) [#/Vol] 4.26 10*6/uL Low 4.6-6.2 [facility] Comment on above: Performed By: #### L 500.4050, L100.0100 ####[facility] [address] [place], [address] RDW SD 47.3 fl High 35.1-43.9 [facility] Comment on above: Performed By: #### L 500.4050, L100.0100 ####[facility] [address] [place], [address] WBC (Bld) [#/Vol] 9.9 10*3/uL Normal 4.4-11.0 [facility] Comment on above: Performed By: #### L 500.4050, L100.0100 ####[facility] [address] [place], [address] Carbon dioxide, total [Moles /volume] in Central venous bloodOrdered By: Werner Shin on 10-23-2024 CO2 [Moles/Vol] 24.0 mmol/L 21.0-32.0 [facility] Chloride assayOrdered By: Emiliano Shin on 10-23-2024 Chloride [Moles/Vol] 105 mmol/L 98-108 [facility] Comprehensive Metabolic Prof ilon 10-23-2024 Albumin [Mass/Vol] 3.3 g/dL Low 3.4-4.8 [facility] Comment on above: Performed By: #### L 500.4050, L100.0100 ####[facility] [address] [place], [address] Albumin/Globulin [Mass ratio] 1.2 {ratio} Normal 0.9-2.4 [facility] Comment on above: Performed By: #### L 500.4050, L100.0100 ####[facility] [address] [place], [address] ALK PHOS 79 U/L Normal 40-129 [facility] Comment on above: Performed By: #### L 500.4050, L100.0100 ####[facility] [address] [place], [address] ALT [Catalytic activity/Vol] 30 U/L Normal <=46 [facility] Comment on above: Performed By: #### L 500.4050, L100.0100 ####[facility] [address] [place], [address] AST [Catalytic activity/Vol] 29 U/L Normal <=37 [facility] Comment on above: Performed By: #### L 500.4050, L100.0100 ####[facility] [address] [place], [address] Bilirubin [Mass/Vol] 0.89 mg/dL Normal 0.00-1.30 [facility] Comment on above: Performed By: #### L 500.4050, L100.0100 ####[facility] [address] [place], [address] BUN/CRE 11.9 RATIO Normal 10-20 [facility] Comment on above: Performed By: #### L 500.4050, L100.0100 ####[facility] [address] [place], [address] Calcium [Mass/Vol] 7.9 mg/dL Normal 7.6-11.0 [facility] Comment on above: Performed By: #### L 500.4050, L100.0100 ####[facility] [address] [place], [address] Chloride [Moles/Vol] 105 mmol/L Normal 98-108 [facility] Comment on above: Performed By: #### L 500.4050, L100.0100 ####[facility] [address] [place], [address] CO2 [Moles/Vol] 24.0 mmol/L Normal 21.0-32.0 [facility] Comment on above: Performed By: #### L 500.4050, L100.0100 ####[facility] [address] [place], [address] Creatinine [Mass/Vol] 1.78 mg/dL High 0.70-1.[address] [facility] Comment on above: Performed By: #### L 500.4050, L100.0100 ####[facility] [address] [place], [address] ECRCL 45.90 ml/min Low 50-250 [facility] Comment on above: Performed By: #### L 500.4050, L100.0100 ####[facility] [address] [place], [address] GAP 11 Normal 5-15 [facility] Comment on above: Performed By: #### L 500.4050, L100.0100 ####[facility] [address] [place], [address] GFR/1.73 sq M.predicted among non-blacks MDRD (S/P/Bld) [Vol rate/Area] 38 mL/min/{1.73_m2} Low >60 [facility] Comment on above: Result Comment: mL/m in/1.73m2 CKD-EPI Creatinine Equation (2020) Performed By: #### L 500.4050, L100.0100 ####[facility] [address] [place], [address] Globulin (S) [Mass/Vol] 2.7 g/dL Normal 2.2-4.2 [facility] Comment on above: Performed By: #### L 500.4050, L100.0100 ####[facility] [address] [place], [address] Glucose [Mass/Vol] 125 mg/dL High 70-99 [facility] Comment on above: Performed By: #### L 500.4050, L100.0100 ####[facility] [address] [place], [address] Potassium [Moles/Vol] 4.2 mmol/L Normal 3.3-5.[address] [facility] Comment on above: Performed By: #### L 500.4050, L100.0100 ####[facility] [address] [place], [address] Sodium [Moles/Vol] 140 mmol/L Normal 133-145 [facility] Comment on above: Performed By: #### L 500.4050, L100.0100 ####[facility] [address] [place], [address] T PROT 5.9 g/dL Normal 5.9-8.4 [facility] Comment on above: Performed By: #### L 500.4050, L100.0100 ####[facility] [address] [place], [address] Urea nitrogen [Mass/Vol] 21 mg/dL High 4-19 [facility] Comment on above: Performed By: #### L 500.4050, L100.0100 ####[facility] [address] [place], [address] Eosinophil percentageOrdered By: Werner Shin on 10-23-2024 Eosinophils/100 WBC (Bld) 0.2 % 0-5 [facility] Erythrocyte distribution wid th ratioOrdered By: Werner Shin on 10-23-2024 Erythrocyte distribution width (RBC) [Ratio] 13.4 % 11.6-14.6 [facility] Erythrocyte distribution wid th standard deviationOrdered By: Werner Shin on 10-23-2024 Erythrocyte distribution width (RBC) [Ratio] 47.3 fl High 35.1-43.9 [facility] Glomerular filtration rate ( GFR) estimation/1.73 sq m using serum, plasma, or whole bOrdered By: Werner Shin on 10-23-2024 GFR/1.73 sq M.predicted among non-blacks MDRD (S/P/Bld) [Vol rate/Area] 38 mL/min/{1.73_m2} Low >60 [facility] Comment on above: mL/min/1.73m2 CKD-EP I Creatinine Equation (2020) Hematocrit Auto (Bld) [Volum e fraction]Ordered By: Werner Shin on 10-23-2024 Hematocrit (Bld) [Volume fraction] 40.8 % 40-54 [facility] Hemoglobin measurementOrdere d By: Werner Shin on 10-23-2024 Hemoglobin (Bld) [Mass/Vol] 13.6 g/dL 13.0-16.5 [facility] Immature granulocytes/100 WB C Auto (Bld)Ordered By: Werner Shin on 10-23-2024 Immature granulocytes/100 WBC (Bld) 0.500 % 0.0-0.9 [facility] Comment on above: IG% - Immature Granu locytes (promyelocytes, myelocytes and metamyelocytes) > 1% indicates that a LEFT SHIFT is Present. Laboratory - Chemistry and C hemistry - challengeOrdered By: Werner Shin on 10-23-2024 AST [Catalytic activity/Vol] 29 U/L <38 [facility] MCV (mean corpuscular volume ) determinationOrdered By: Werner Shin on 10-23-2024 MCV (RBC) [Entitic vol] 95.8 fL High 80-94 [facility] Mean corpuscular hemoglobin (MCH) determinationOrdered By: Werner Shin on 10-23-2024 MCH (RBC) [Entitic mass] 31.9 pg 27.0-32.0 [facility] Mean corpuscular hemoglobin concentration (MCHC) determinationOrdered By: Werner Shin on 10-23-2024 MCHC (RBC) [Mass/Vol] 33.3 g/dL 32-[address] [facility] Mean platelet volume determi nationOrdered By: Werner Shin on 10-23-2024 Platelet mean volume (Bld) [Entitic vol] 9.4 fL 6.2-12.0 [facility] Monocyte percentageOrdered B y: Werner Shin on 10-23-2024 Monocytes/100 WBC (Bld) 9.8 % 0-10 [facility] Neutrophil percentageOrdered By: Werner Shin on 10-23-2024 Neutrophils/100 WBC (Bld) 71.7 % High 47-70 [facility] Nucleated red blood cell per centageOrdered By: Werner Shin on 10-23-2024 Nucleated RBC/100 WBC (Bld) [Ratio] 0 % 0-5 [facility] Platelet countOrdered By: Emiliano Shin on 10-23-2024 Platelets (Bld) [#/Vol] 178 10*3/uL 150-450 [facility] Potassium measurement (mass/ volume)Ordered By: Werner Shin on 10-23-2024 Potassium (Unsp spec) [Mass/Vol] 4.2 mmol/L 3.3-5.1 [facility] RBC Auto (Bld) [#/Vol]Ordere d By: Werner Shin on 10-23-2024 RBC (Bld) [#/Vol] 4.26 10*6/uL Low 4.6-6.2 [facility] Serum creatinine measurement (mass/volume)Ordered By: Werner Shin on 10-23-2024 Creatinine [Mass/Vol] 1.78 mg/dL High 0.70-1.[address] [facility] Serum globulin measurementOr dered By: Werner Shin on 10-23-2024 Globulin (S) [Mass/Vol] 2.7 g/dL 2.2-4.2 [facility] Serum glucose measurement (m ass/volume)Ordered By: Werner Shin on 10-23-2024 Glucose [Mass/Vol] 125 mg/dL High 70-99 [facility] Serum or plasma alanine wilde otransferase (ALT) measurementOrdered By: Werner Shin on 10-23-2024 ALT [Catalytic activity/Vol] 30 U/L <47 [facility] Serum or plasma albumin anson urement (mass/volume)Ordered By: Werner Shin on 10-23-2024 Albumin [Mass/Vol] 3.3 g/dL Low 3.4-4.8 [facility] Serum or plasma albumin/glob ulin mass ratioOrdered By: Werner Shin on 10-23-2024 Albumin/Globulin [Mass ratio] 1.2 {ratio} 0.9-2.4 [facility] Serum or plasma alkaline rui sphatase measurementOrdered By: Werner Shin on 10-23-2024 ALP [Catalytic activity/Vol] 79 U/L 40-129 [facility] Serum or plasma calcium anson urement (mass/volume)Ordered By: Werner Shin on 10-23-2024 Calcium [Mass/Vol] 7.9 mg/dL 7.6-11.0 [facility] Serum or plasma urea nitroge n measurement (mass/volume)Ordered By: Werner Shin on 10-23-2024 Urea nitrogen [Mass/Vol] 21 mg/dL High 4-19 [facility] Sodium levelOrdered By: Dennys Shin on 10-23-2024 Sodium [Moles/Vol] 140 mmol/L 133-145 [facility] Total proteinOrdered By: Efrain Shin on 10-23-2024 Protein [Mass/Vol] 5.9 g/dL 5.9-8.4 [facility] White blood cell (WBC) count Ordered By: Werner Shin on 10-23-2024 WBC (Bld) [#/Vol] 9.9 10*3/uL 4.4-11.0 [facility] 12 Lead EKGon 10-22-2024 12 Lead EKG Normal [facility] Abdomen/Pelvis W IV Cont ONL Yon 10-22-2024 Abdomen/Pelvis W IV Cont ONLY Normal [facility] Absolute lymphocyte countOrd ered By: Manuel Alvarez on 10-22-2024 Lymphocytes Auto (Unsp spec) [#/Vol] 0.51 10*3/uL Low 0.83-4.51 [facility] Absolute neutrophil countOrd ered By: Manuel Alvarez on 10-22-2024 Neutrophils (Bld) [#/Vol] 9.4 10*3/uL High 2.0-7.7 [facility] Activated partial thrombopla stin time (aPTT) in platelet poor plasma by coagulation aOrdered By: Manuel Alvarez on 10-22-2024 aPTT Coag (PPP) [Time] 27.9 s 24.1-36.2 [facility] Anion gap in Serum or Plasma Ordered By: Manuel Alvarez on 10-22-2024 Anion gap [Moles/Vol] 13 mmol/L 5-[address] [facility] Automated lymphocyte count a s percentage of total leukocytesOrdered By: Manuel Alvarez on 10-22-2024 Lymphocytes/100 WBC Auto (Unsp spec) 4.8 % Low 19-41 [facility] BUN/creatinine ratioOrdered By: Manuel Alvarez on 10-22-2024 Urea nitrogen/Creatinine [Mass ratio] 15.2 mg/mg 10-20 [facility] Basophil percentageOrdered B y: Manuel Alvarez on 10-22-2024 Basophils/100 WBC (Bld) 0.2 % 0-1 [facility] Bilirubin Test strip Ql (U)O rdered By: Manuel Alvarez on 10-22-2024 Bilirubin Ql (U) Negative Negative [facility] Bilirubin, totalOrdered By: Manuel Alvraez on 10-22-2024 Bilirubin [Mass/Vol] 0.75 mg/dL 0.00-1.30 [facility] Blood cultureOrdered By: Tata Alvarez on 10-22-2024 Bacteria identified Cx Nom (Bld) No growth in 5 days. [facility] Bacteria identified Cx Nom (Bld) No growth in 5 days. [facility] CBC W/Diff, Automatedon 09-30 Absolute Lymph 0.51 X10 3/uL Low 0.83-4.51 [facility] Comment on above: Performed By: #### L 100.0100, L300.4310, L300.3900, M200.1000, L503.6005 ####[facility] [address] [place], [address] Absolute Neut 9.4 X10 3/uL High 2.0-7.7 [facility] Comment on above: Performed By: #### L 100.0100, L300.4310, L300.3900, M200.1000, L503.6005 ####[facility] [address] [place], [address] Basophils/100 WBC (Bld) 0.2 % Normal 0-1 [facility] Comment on above: Performed By: #### L 100.0100, L300.4310, L300.3900, M200.1000, L503.6005 ####[facility] [address] [place], [address] Eosinophils/100 WBC (Bld) 0.1 % Normal 0-5 [facility] Comment on above: Performed By: #### L 100.0100, L300.4310, L300.3900, M200.1000, L503.6005 ####[facility] [address] [place], [address] Erythrocyte distribution width (RBC) [Ratio] 13.1 % Normal 11.6-14.6 [facility] Comment on above: Performed By: #### L 100.0100, L300.4310, L300.3900, M200.1000, L503.6005 ####[facility] [address] [place], [address] Hematocrit (Bld) [Volume fraction] 41.2 % Normal 40-54 [facility] Comment on above: Performed By: #### L 100.0100, L300.4310, L300.3900, M200.1000, L503.6005 ####[facility] [address] [place], [address] Hemoglobin (Bld) [Mass/Vol] 13.8 g/dL Normal 13.0-16.5 [facility] Comment on above: Performed By: #### L 100.0100, L300.4310, L300.3900, M200.1000, L503.6005 ####[facility] [address] [place], [address] IG% 0.500 Normal 0.0-0.9 [facility] Comment on above: Result Comment: IG% - Immature Granulocytes (promyelocytes, myelocytes andmetamyelocytes) > 1% indicates that a LEFT SHIFT is Present. Performed By: #### L 100.0100, L300.4310, L300.3900, M200.1000, L503.6005 ####[facility] [address] [place], [address] Lymphocytes/100 WBC (Bld) 4.8 % Low 19-41 [facility] Comment on above: Performed By: #### L 100.0100, L300.4310, L300.3900, M200.1000, L503.6005 ####[facility] [address] [place], [address] MCH (RBC) [Entitic mass] 31.5 pg Normal 27.0-32.0 [facility] Comment on above: Performed By: #### L 100.0100, L300.4310, L300.3900, M200.1000, L503.6005 ####[facility] [address] [place], [address] MCHC (RBC) [Mass/Vol] 33.5 g/dL Normal 32-[address] [facility] Comment on above: Performed By: #### L 100.0100, L300.4310, L300.3900, M200.1000, L503.6005 ####[facility] [address] [place], [address] MCV (RBC) [Entitic vol] 94.1 fL High 80-94 [facility] Comment on above: Performed By: #### L 100.0100, L300.4310, L300.3900, M200.1000, L503.6005 ####[facility] [address] [place], [address] Monocytes/100 WBC (Bld) 5.8 % Normal 0-10 [facility] Comment on above: Performed By: #### L 100.0100, L300.4310, L300.3900, M200.1000, L503.6005 ####[facility] [address] [place], [address] Neutrophils/100 WBC (Bld) 88.6 % High 47-70 [facility] Comment on above: Performed By: #### L 100.0100, L300.4310, L300.3900, M200.1000, L503.6005 ####[facility] [address] [place], [address] Nucleated RBC (Bld) [#/Vol] 0 10*3/uL Normal 0-5 [facility] Comment on above: Performed By: #### L 100.0100, L300.4310, L300.3900, M200.1000, L503.6005 ####[facility] [address] [place], [address] Platelet mean volume (Bld) [Entitic vol] 9.8 fL Normal 6.2-12.0 [facility] Comment on above: Performed By: #### L 100.0100, L300.4310, L300.3900, M200.1000, L503.6005 ####[facility] [address] [place], [address] Platelets (Bld) [#/Vol] 197 10*3/uL Normal 150-450 [facility] Comment on above: Performed By: #### L 100.0100, L300.4310, L300.3900, M200.1000, L503.6005 ####[facility] [address] [place], [address] RBC (Bld) [#/Vol] 4.38 10*6/uL Low 4.6-6.2 [facility] Comment on above: Performed By: #### L 100.0100, L300.4310, L300.3900, M200.1000, L503.6005 ####[facility] [address] [place], [address] RDW SD 44.9 fl High 35.1-43.9 [facility] Comment on above: Performed By: #### L 100.0100, L300.4310, L300.3900, M200.1000, L503.6005 ####[facility] [address] [place], [place], [address] WBC (Bld) [#/Vol] 10.6 10*3/uL Normal 4.4-11.0 [facility] Comment on above: Performed By: #### L 100.0100, L300.4310, L300.3900, M200.1000, L503.6005 ####[facility] [address] [place], [place], [address] CNPNon [facility] FRAN PAREKH ([id number]) 1945 M Date Time Provider Department 10[facility]22/[facility] During your visit today, we recorded the following information about you: Kulwinder Whelan, RN 10/22/2024 8:43 AM Signed Marquita from [facility] patient floor calling as she states pt was admitted there this morning for chlangitis, lactic acidosis, nausea AND vomiting and ROSSANA. Asking for a copy of pt's current med list to be faxed to them at [phone]. Med list copied and faxed as requested. Allergies As of Date: 10/22/2024 Noted Allergy Reaction NORVASC (AMLODIPINE BESYLATE) 09/14/2016 7 - Swelling Comments: pedal edema VENOM-WASP 01/14/2005 7 - Swelling ZITHROMAX (AZITHROMYCIN) 01/14/2005 9 - Itching Date Reviewed: 10/08/2024 Reviewed by: Eunice Bruce LPN - Fully Assessed Reason for Visit: request for updated med list [Other] Patient Update [1234] Cmt: Admitted to [facility] Prescriptions as of 10/22/2024 - apixaban (ELIQUIS) 5 mg tab(s) Take 1 tablet by mouth two times a day. - atorvastatin (LIPITOR) 40 mg tablet Take [...] mouth daily at bedtime. - CPAP AutoPAP [id number]. Mask per preference, tubing, filters, humidity. [employer]. Dx: G47.33. Fax 30 day compliance report to [phone]. - CPAP Please provide mask fitting. Pt [...] tablet daily. 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] [...] Unsteady gait [R26.81] 12/18/2023 Encounter Status:Closed by KULWINDER WHELAN on 10/22/24 Normal [facility] Calculated very low density lipoprotein (VLDL) cholesterol measurementOrdered By: Werner Shin on 10-22-2024 Calculated very low density lipoprotein (VLDL) cholesterol measurement 54 mg/dL High 5-40 [facility] Carbon dioxide, total [Moles /volume] in Central venous bloodOrdered By: Manuel Alvarez on 10-22-2024 CO2 [Moles/Vol] 23.7 mmol/L 21.0-32.0 [facility] Chest PA and Lateralon 10-22 Chest PA and Lateral Normal [facility] Chloride assayOrdered By: Tania Alvarez on 10-22-2024 Chloride [Moles/Vol] 104 mmol/L 98-108 [facility] Comprehensive Metabolic Prof ilon 10-22-2024 Albumin [Mass/Vol] 3.4 g/dL Normal 3.4-4.8 [facility] Comment on above: Performed By: #### L 501.2450, L500.4050 ####[facility] [address] [place], [address] Albumin/Globulin [Mass ratio] 1.2 {ratio} Normal 0.9-2.4 [facility] Comment on above: Performed By: #### L 501.2450, L500.4050 ####[facility] [address] [place], [address] ALK PHOS 93 U/L Normal 40-129 [facility] Comment on above: Performed By: #### L 501.2450, L500.4050 ####[facility] [address] [place], [address] ALT [Catalytic activity/Vol] 33 U/L Normal <=46 [facility] Comment on above: Performed By: #### L 501.2450, L500.4050 ####[facility] [address] [place], [address] AST [Catalytic activity/Vol] 28 U/L Normal <=37 [facility] Comment on above: Performed By: #### L 501.2450, L500.4050 ####[facility] [address] [place], [address] Bilirubin [Mass/Vol] 0.75 mg/dL Normal 0.00-1.30 [facility] Comment on above: Performed By: #### L 501.2450, L500.4050 ####[facility] [address] [place], [address] BUN/CRE 15.2 RATIO Normal 10-20 [facility] Comment on above: Performed By: #### L 501.2450, L500.4050 ####[facility] [address] [place], [address] Calcium [Mass/Vol] 8.5 mg/dL Normal 7.6-11.0 [facility] Comment on above: Performed By: #### L 501.2450, L500.4050 ####[facility] [address] [place], [address] Chloride [Moles/Vol] 104 mmol/L Normal 98-108 [facility] Comment on above: Performed By: #### L 501.2450, L500.4050 ####[facility] [address] [place], [address] CO2 [Moles/Vol] 23.7 mmol/L Normal 21.0-32.0 [facility] Comment on above: Performed By: #### L 501.2450, L500.4050 ####[facility] [address] [place], [address] Creatinine [Mass/Vol] 1.86 mg/dL High 0.70-1.[address] [facility] Comment on above: Performed By: #### L 501.2450, L500.4050 ####[facility] [address] [place], [address] ECRCL 43.92 ml/min Low 50-250 [facility] Comment on above: Performed By: #### L 501.2450, L500.4050 ####[facility] [address] [place], [address] GAP 13 Normal 5-15 [facility] Comment on above: Performed By: #### L 501.2450, L500.4050 ####[facility] [address] [place], [address] GFR/1.73 sq M.predicted among non-blacks MDRD (S/P/Bld) [Vol rate/Area] 36 mL/min/{1.73_m2} Low >60 [facility] Comment on above: Result Comment: mL/m in/1.73m2 CKD-EPI Creatinine Equation (2020) Performed By: #### L 501.2450, L500.4050 ####[facility] [address] [place], [address] Globulin (S) [Mass/Vol] 2.8 g/dL Normal 2.2-4.2 [facility] Comment on above: Performed By: #### L 501.2450, L500.4050 ####[facility] [address] [place], [address] Glucose [Mass/Vol] 189 mg/dL High 70-99 [facility] Comment on above: Performed By: #### L 501.2450, L500.4050 ####[facility] [address] [place], [address] Potassium [Moles/Vol] 4.0 mmol/L Normal 3.3-5.[address] [facility] Comment on above: Performed By: #### L 501.2450, L500.4050 ####[facility] [address] [place], [address] Sodium [Moles/Vol] 140 mmol/L Normal 133-145 [facility] Comment on above: Performed By: #### L 501.2450, L500.4050 ####[facility] [address] [place], [address] T PROT 6.2 g/dL Normal 5.9-8.4 [facility] Comment on above: Performed By: #### L 501.2450, L500.4050 ####[facility] [address] [place], [address] Urea nitrogen [Mass/Vol] 28 mg/dL High 4-19 [facility] Comment on above: Performed By: #### L 501.2450, L500.4050 ####[facility] [address] [place], [address] Electrocardiogram reportOrde red By: Isaias Velez on 10-22-2024 EKG study [facility] [address] [place] [address] 12 Lead EKG 10/21/24 2344 MR#: [id number] Acct: [id number] Name: FRAN PAREKH Rep #:[id number] : 1945 79 From: Isaias Velez MD Attending Dr: Dr. Marleny Tena, DO Status: ADM IN Ordering Dr: Manuel Alvarez MD Date: 10/22/24 Location: [facility] Sex: M C Admitted: 10/22/24 Test Reason : DYSRHYTHMIA Blood Pressure : */* mmHG Vent. Rate : 71 BPM Atrial Rate : 71 BPM P-R Int : 176 ms QRS Dur : 82 ms QT Int : 420 ms P-R-T Axes : 20 3 19 degrees QTcB Int : 456 ms Sinus rhythm with marked sinus arrhythmia Nonspecific ST abnormality Abnormal ECG Confirmed by ISAIAS VELZE MD ([id number]), tape editor SEAN DALTON ([id number]) on 10/22/2024 11:29:07 AM Referred By: BB Confirmed By: ISAIAS VELEZ MD 10/22/24 112 Date _ Isaias Velez MD CC: Dr. Manuel Alvarez MD; Dr. Salvador Del Rosario MD; Dr. Marleny Tena DO~ Signed [facility] Work Phone: Emergency Department Summary on 10-22-2024 Emergency Department Summary Normal [facility] Eosinophil percentageOrdered By: Manuel Alvarez on 10-22-2024 Eosinophils/100 WBC (Bld) 0.1 % 0-5 [facility] Erythrocyte distribution wid th ratioOrdered By: Manuel Alvarez on 10-22-2024 Erythrocyte distribution width (RBC) [Ratio] 13.1 % 11.6-14.6 [facility] Erythrocyte distribution wid th standard deviationOrdered By: Manuel Alvarez on 10-22-2024 Erythrocyte distribution width (RBC) [Ratio] 44.9 fl High 35.1-43.9 [facility] Glomerular filtration rate ( GFR) estimation/1.73 sq m using serum, plasma, or whole bOrdered By: Manuel Alvarez on 10-22-2024 GFR/1.73 sq M.predicted among non-blacks MDRD (S/P/Bld) [Vol rate/Area] 36 mL/min/{1.73_m2} Low >60 [facility] Comment on above: mL/min/1.73m2 CKD-EP I Creatinine Equation (2020) H AND P Exam - Hospital[facility] 10-22-2024 H&P Exam - Hospitalist Normal [facility] Hematocrit Auto (Bld) [Volum e fraction]Ordered By: Manuel Alvarez on 10-22-2024 Hematocrit (Bld) [Volume fraction] 41.2 % 40-54 [facility] Hemoglobin measurementOrdere d By: Manuel Alvarez on 10-22-2024 Hemoglobin (Bld) [Mass/Vol] 13.8 g/dL 13.0-16.5 [facility] Immature granulocytes/100 WB C Auto (Bld)Ordered By: Manuel Alvarez on 10-22-2024 Immature granulocytes/100 WBC (Bld) 0.500 % 0.0-0.9 [facility] Comment on above: IG% - Immature Granu locytes (promyelocytes, myelocytes and metamyelocytes) > 1% indicates that a LEFT SHIFT is Present. International normalized rat io (INR) calculationOrdered By: Manuel Alvarez on 10-22-2024 INR Coag (Bld) [Relative time] 1.2 {INR} [facility] Ketones Test strip Ql (U)Ord ered By: Manuel Alvarez on 10-22-2024 Ketones Ql (U) Negative Negative [facility] LDL calc ser/plasOrdered By: Werner Shin on 10-22-2024 Cholesterol in LDL [Mass/Vol] 41 mg/dL [facility] Comment on above: Alhstlxive=139-954 m g/dL & Higher Nacp=857 mg/dL or greater Laboratory - Chemistry and C hemistry - challengeOrdered By: Manuel Alvarez on 10-22-2024 AST [Catalytic activity/Vol] 28 U/L <38 [facility] Lactic Acidon 10-22-2024 Lactate [Moles/Vol] 1.7 mmol/L Normal 0.0-2.0 [facility] Comment on above: Performed By: #### L 503.6000 ####[facility] [address], [address] Lactate [Moles/Vol] 2.3 mmol/L Invalid Interpretation Code 0.0-2.0 [facility] Comment on above: Order Comment: Y Result Comment: Crit ical Result(s) Called at: 0111 by:??ROQUE HAVEN TO DUARTEFF Results read back by same. Performed By: #### L 100.0100, L300.4310, L300.3900, M200.1000, L503.6005 ####[facility] [address] [place], [place], [address] Lactic acid measurementOrder ed By: Manuel Alvarez on 10-22-2024 Lactate [Moles/Vol] 1.7 mmol/L 0.0-2.0 [facility] Lipaseon 10-22-2024 Lipase [Catalytic activity/Vol] 35 U/L Normal 13-75 [facility] Comment on above: Result Comment: Plea se note:LIPASE revised reference range effective 22.New Lipase methodology. Expected to produce lower valuesthan the previous assay method.NEW Reference Range: 13 - 75 U/L Performed By: #### L 501.2450, L500.4050 ####[facility] [address] [place], [address] Lipase measurementOrdered By : Manule Alvarez on 10-22-2024 Lipase [Catalytic activity/Vol] 35 U/L 13-75 [facility] Comment on above: Please note:LIPASE r evised reference range effective 22. New Lipase methodology. Expected to produce lower values than the previous assay method. NEW Reference Range: 13 - 75 U/L Lipid Profileon 10-22-2024 CHOL:HDL 4.58 Normal [facility] Comment on above: Performed By: #### L 500.4100 ####[facility] [address] [place], [address] Cholesterol [Mass/Vol] 121 mg/dL Normal <=200 [facility] Comment on above: Result Comment: Chol esterol level, Desirable <200 mg/dLBorderline high cholesterol 200-239 mg/dLHigh cholesterol >=240 mg/dLRecommendations of the NCEP Adult Treatment Panel for thefollowing risk-cutoff thresholds for the [place] Americanpulation. Performed By: #### L 500.4100 ####[facility] [address] [place], [place], [address] Cholesterol in HDL [Mass/Vol] 26 mg/dL Low [facility] Comment on above: Result Comment: Isabelle onal Cholesterol Education Program (NCEP) guidelines:<40 mg/dL: Low HDL-cholesterol (major risk factor for CHD)>= 60 mg/dL: High HDL-cholesterol (negative risk factor forCHD)HDL-cholesterol is affected by a number of factors, e.g.smoking, exercise, hormones, sex and age. Performed By: #### L 500.4100 ####[facility] [address] [place], [address] Cholesterol in LDL [Mass/Vol] 41 mg/dL Normal [facility] Comment on above: Result Comment: Bord uttawe=206-793 mg/dL Higher Wkgo=615 mg/dL or greater Performed By: #### L 500.4100 ####[facility] [address] [place], [address] Cholesterol in VLDL [Mass/Vol] 54 mg/dL High 5-40 [facility] Comment on above: Performed By: #### L 500.4100 ####[facility] [address] [place], [address] Triglyceride [Mass/Vol] 269 mg/dL High [facility] Comment on above: Result Comment: The drugs N-Acetylcysteine and Metamizole may falselydepress this assay.Normal range: <150 mg/dLBorderline High: 150-199 mg/dLHigh: 200-499 mg/dLVery High: >500 mg/dL Performed By: #### L 500.4100 ####[facility] [address] [place], [address] MCV (mean corpuscular volume ) determinationOrdered By: Manuel Alvarez on 10-22-2024 MCV (RBC) [Entitic vol] 94.1 fL High 80-94 [facility] MR/CON.PCM.GIon 10-22-2024 MR/CON.PCM.GI Normal [facility] MRCP Abdomen without Contras ton 10-22-2024 MRCP Abdomen without Contrast Normal [facility] Magnesiumon 10-22-2024 Magnesium [Mass/Vol] 1.5 mg/dL Normal 1.5-2.2 [facility] Comment on above: Performed By: #### L 501.9520, L501.5200 ####[facility] [address] [place], [place], [address] Magnesium measurement (mass/ volume)Ordered By: Werner Shin on 10-22-2024 Magnesium (Unsp spec) [Mass/Vol] 1.5 mg/dL 1.5-2.2 [facility] Magnetic resonance imaging r eportOrdered By: Rinku Rangel on 10-22-2024 Study report [facility] Imaging Services [address] [place], [place] [address] MRCP Abdomen without Contrast MR#: [id number] Acct: [id number] Name: FRAN PAREKH Rep #: [id number] : 1945 M 79 From: Barney Rangel MD PCP: Dr. Salvador Del Rosario MD Status: ADM IN Study:MRCP Abdomen without Contrast Date of E xam: 10/22/24 Exam# [id number] Ordering Dr: Werner Hernández DO PROCEDURE: MRCP ABDOMEN WITHOUT CONTRAST 10/22/2024 REASON FOR EXAM: SUSPECTED CHOLANGITIS. TECHNIQUE: MRCP ABDOMEN WITHOUT CONTRAST Multiplanar and multisequence images were obtained. CONTRAST: None COMPARISON: October 22, 2024 CT FINDINGS: Liver: Unremarkable Biliary: There is a stent present in the common bile duct. Trace amount of air is visible within the gallbladder, secondary to instrumentation. There are no visible stones. There is no wall thickening or pericholecystic inflammation. The common bile duct is not dilated. The pancreatic duct is not dilated. Pancreas: There are multiple simple cysts in the tail of the pancreas with the largest measuring 3.6 x 2.6 cm. There is no significant peripancreatic inflammation Spleen: Unremarkable Adrenals: Unremarkable Kidneys: Right renal cysts are noted with the largest partly visible at the end lower pole measuring 3.2 cm. Peritoneum / Retroperitoneum: There is no free fluid. Lymph Nodes: There is no visible pathologic adenopathy by size criteria. Major Vessels: Unremarkable Bones: Unremarkable MRI/MRCP Abdomen without Contrast IMPRESSION: There is a stent present in the common bile duct. Trace amount of air is visible within the gallbladder, secondary to instrumentation. There are multiple simple cysts in the tail of the pancreas with the largest measuring 3.6 x 2.6 cm. Right renal cysts are noted with the largest partly visible at the end lower pole measuring 3.2 cm. Reading Location: [facility] CC: Dr. Salvador Del Rosario MD; Dr. Werner Nunn, DO ~ Software Packager: Signed [facility] Mean corpuscular hemoglobin (MCH) determinationOrdered By: Manuel Alvarez on 10-22-2024 MCH (RBC) [Entitic mass] 31.5 pg 27.0-32.0 [facility] Mean corpuscular hemoglobin concentration (MCHC) determinationOrdered By: Manuel Alvarez on 10-22-2024 MCHC (RBC) [Mass/Vol] 33.5 g/dL 32-[address] [facility] Mean platelet volume determi nationOrdered By: Manuel Alvarez on 10-22-2024 Platelet mean volume (Bld) [Entitic vol] 9.8 fL 6.2-12.0 [facility] Microscopic analysis of urin e for red blood cells (RBC)Ordered By: Manuel Alvarez on 10-22-2024 Microscopic analysis of urine for red blood cells (RBC) 0 SEEN /hpf 0-5 [facility] Monocyte percentageOrdered B y: Manuel Alvarez on 10-22-2024 Monocytes/100 WBC (Bld) 5.8 % 0-10 [facility] Mucus LM Ql (Urine sed)Order ed By: Manuel Alvarez on 10-22-2024 Mucus Ql (Urine sed) 0 SEEN /hpf [facility] Neutrophil percentageOrdered By: Manuel Avlarez on 10-22-2024 Neutrophils/100 WBC (Bld) 88.6 % High 47-70 [facility] Nitrite Test strip Ql (U)Ord ered By: Manuel Alvarez on 10-22-2024 Nitrite Ql (U) Negative Negative [facility] Nucleated red blood cell per centageOrdered By: Manuel Alvarez on 10-22-2024 Nucleated RBC/100 WBC (Bld) [Ratio] 0 % 0-5 [facility] Partial Thromboplast Timeon 10-22-2024 aPTT Coag (Bld) [Time] 27.9 s Normal 24.1-36.2 [facility] Comment on above: Performed By: #### L 100.0100, L300.4310, L300.3900, M200.1000, L503.6005 ####[facility] [address] [place], [address] Platelet countOrdered By: Tania Alvarez on 10-22-2024 Platelets (Bld) [#/Vol] 197 10*3/uL 150-450 [facility] Potassium measurement (mass/ volume)Ordered By: Manuelsuzie Alvarez on 10-22-2024 Potassium (Unsp spec) [Mass/Vol] 4.0 mmol/L 3.3-5.1 [facility] Protein Test strip Ql (U)Ord ered By: Manuel Alvarez on 10-22-2024 Protein Ql (U) 30 mg/dl High Negative [facility] Prothrombin Time w/INRon INR Coag (PPP) [Relative time] 1.2 {INR} Normal [facility] Comment on above: Performed By: #### L 100.0100, L300.4310, L300.3900, M200.1000, L503.6005 ####[facility] [address] [place], [address] PT Coag (PPP) [Time] 15.3 s High 11.7-14.9 [facility] Comment on above: Performed By: #### L 100.0100, L300.4310, L300.3900, M200.1000, L503.6005 ####[facility] [address] [place], [address] Prothrombin timeOrdered By: Manuel Alvarez on 10-22-2024 PT Coag (PPP) [Time] 15.3 s High 11.7-14.9 [facility] RBC Auto (Bld) [#/Vol]Ordere d By: Manuel Alvarez on 10-22-2024 RBC (Bld) [#/Vol] 4.38 10*6/uL Low 4.6-6.2 [facility] Screening total cholesterol/ high density lipoprotein (HDL) cholesterol ratioOrdered By: Werner Shin on 10-22-2024 Cholesterol.total/Chol esterol in HDL [Mass ratio] 4.58 {ratio} [facility] Serum creatinine measurement (mass/volume)Ordered By: Manuel Alvarez on 10-22-2024 Creatinine [Mass/Vol] 1.86 mg/dL High 0.70-1.[address] [facility] Serum globulin measurementOr dered By: Manuel Alvarez on 10-22-2024 Globulin (S) [Mass/Vol] 2.8 g/dL 2.2-4.2 [facility] Serum glucose measurement (m ass/volume)Ordered By: Manuel Alvarez on 10-22-2024 Glucose [Mass/Vol] 189 mg/dL High 70-99 [facility] Serum or plasma alanine wilde otransferase (ALT) measurementOrdered By: Manuel Alvarez on 10-22-2024 ALT [Catalytic activity/Vol] 33 U/L <47 [facility] Serum or plasma albumin anson urement (mass/volume)Ordered By: Manuel Alvarez on 10-22-2024 Albumin [Mass/Vol] 3.4 g/dL 3.4-4.8 [facility] Serum or plasma albumin/glob ulin mass ratioOrdered By: Manuel Alvarez on 10-22-2024 Albumin/Globulin [Mass ratio] 1.2 {ratio} 0.9-2.4 [facility] Serum or plasma alkaline rui sphatase measurementOrdered By: Manuel Alvarez on 10-22-2024 ALP [Catalytic activity/Vol] 93 U/L 40-129 [facility] Serum or plasma calcium anson urement (mass/volume)Ordered By: Manuel Alvarez on 10-22-2024 Calcium [Mass/Vol] 8.5 mg/dL 7.6-11.0 [facility] Serum or plasma cholesterol in HDL measurement (mass/volume)Ordered By: Werner Shin on 10-22-2024 Cholesterol in HDL [Mass/Vol] 26 mg/dL Low >40 [facility] Comment on above: National Cholesterol Education Program (NCEP) guidelines:<40 mg/dL: Low HDL-cholesterol (major risk factor for CHD)>= 60 mg/dL: High HDL-cholesterol (negative risk factor for CHD)HDL-cholesterol is affected by a number of factors, e.g. smoking, exercise, hormones, sex and age. Serum or plasma cholesterol measurement (mass/volume)Ordered By: Werner Shin on 10-22-2024 Cholesterol [Mass/Vol] 121 mg/dL <201 [facility] Comment on above: Cholesterol level, D esirable <200 mg/dLBorderline high cholesterol 200-239 mg/dLHigh cholesterol >=240 mg/dLRecommendations of the NCEP Adult Treatment Panel for the following risk-cutoff thresholds for the [place] population. Serum or plasma urea nitroge n measurement (mass/volume)Ordered By: Manuel Alvarez on 10-22-2024 Urea nitrogen [Mass/Vol] 28 mg/dL High 4-19 [facility] Sodium levelOrdered By: Rupert Alvarez on 10-22-2024 Sodium [Moles/Vol] 140 mmol/L 133-145 [facility] Squamous epithelial cells de tection in urine sediment by light microscopyOrdered By: Manuel Alvarez on 10-22-2024 Epithelial cells.squamous LM Ql (Urine sed) 0-5 SEEN /hpf 0-5 [facility] TSH DL <= 0.005 mIU/L QnOrde red By: Werner Shin on 10-22-2024 TSH Qn 1.840 uIU/mL 0.300-4.20 0 [facility] Thyroid Stim Hormone (TSH)on 10-22-2024 TSH 1.840 uIU/mL Normal 0.300-4.20 0 [facility] Comment on above: Performed By: #### L 501.9520, L501.5200 ####[facility] [address] [place], [place], [id number] Total proteinOrdered By: Tata Alvarez on 06-24-2025 Protein [Mass/Vol] 6.2 g/dL 5.9-8.4 [facility] Triglycerides measurementOrd ered By: Werner Shin on 10-22-2024 Triglyceride [Mass/Vol] 269 mg/dL High <199 [facility] Comment on above: The drugs N-Acetylcy steine and Metamizole may falsely depress this assay. Normal range: <150 mg/dLBorderline High: 150-199 mg/dLHigh: 200-499 mg/dLVery High: >500 mg/dL Urinalysis, Completeon 10-22 EPI,SQUAMOUS 0-5 SEEN Normal 0-5 [facility] Comment on above: Order Comment: CLEAN CATCH Performed By: #### L 400.0001, M1.2199 ####[facility] [address] [place], [address] BACTERIA 0 SEEN Normal None Seen [facility] Comment on above: Order Comment: CLEAN CATCH Performed By: #### L 400.0001, M1.2199 ####[facility] [address] [place], [address] Mucus Ql (Urine sed) 0 SEEN Normal [facility] Comment on above: Order Comment: CLEAN CATCH Performed By: #### L 400.0001, M1.0 ####[facility] [address] [place], [address] RBC 0 SEEN Normal 0-5 [facility] Comment on above: Order Comment: CLEAN CATCH Performed By: #### L 400.0001, M1.2199 ####[facility] [address] [place], [address] WBC 0 SEEN Normal 0-5 [facility] Comment on above: Order Comment: CLEAN CATCH Performed By: #### L 400.0001, M1.2199 ####[facility] [address] [place], [address] Urine clarityOrdered By: Tata Alvarez on 10-22-2024 Clarity (U) Clear Clear [facility] Urine color determinationOrd ered By: Manuel Alvarez on 10-22-2024 Color (U) Yellow Yellow [facility] Urine cultureOrdered By: Tata Alvarez on 10-22-2024 Bacteria identified Cx Nom (U) Positive Abnormal [facility] Urine glucose detectionOrder ed By: Manuel Alvarez on 10-22-2024 Glucose Ql (U) Normal mg/dl Normal [facility] Urine leukocyte esterase det ection by dipstickOrdered By: Manuel Alvarez on 10-22-2024 Leukocyte esterase Test strip Ql (U) Negative Negative [facility] Urine pHOrdered By: Manuel Alvarez on 10-22-2024 pH (U) 6.5 [pH] 5.0 - 8.0 [facility] Urine sediment bacteria coun t by microscopy (number/high power field)Ordered By: Manuel Alavrez on 10-22-2024 Bacteria LM.HPF (Urine sed) [#/Area] 0 /[HPF] None Seen [facility] Urine specific gravity measu rementOrdered By: Manuel Alvarez on 10-22-2024 Specific gravity (U) [Rel density] 1.010 1.002-1.03 0 [facility] Urine urobilinogen measureme ntOrdered By: Manuel Alvarez on 10-22-2024 Urobilinogen Ql (U) 4 mg/dl High Normal [facility] White blood cell (WBC) count Ordered By: Manuel Alvarez on 10-22-2024 WBC (Bld) [#/Vol] 10.6 10*3/uL 4.4-11.0 [facility] White blood cell countOrdere d By: Manuel Alvarez on 10-22-2024 White blood cell count 0 SEEN /hpf 0-5 [facility] CNOVon 10-08-2024 CNOV Office Visit (FAMPWS ) -- FRAN PAREKH ([id number]) 1945 M Date Time Provider Department 10/08/24 9:40 AM MARILIA OROZCO During your visit today, we recorded the following information about you: Pulse Respiration Blood pressure Weight 58/minute 18/minute 118/76 132.9 kg Marilia Orozco APRN.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 10/08/2024 9:54 AM Signed 10/08/2024 Patient presents with: Pain: Left wrist pain, fell about a month ago and caught himself with his hands. Recording using modulR software for draft documentation of the visit was discussed with the patient/authorized passenger service representative; all questions welcomed and answered. Patient/authorized passenger service representative agreed to proceed SUBJECTIVE: This is [...] of skin of nose Dr. Chowdary in [place] Stage 3a chronic kidney disease (HCC) Venous [...] by mouth daily at bedtime. CPAP AutoPAP [id number]. Mask per preference, tubing, filters, humidity. [employer]. Dx: G47.33. Fax 30 day compliance report to [phone]. CPAP Please provide mask fitting. Pt with [...] No deform (more content not included)... Normal [facility] No Panel Informationon 10-08 IMPRESSION: 1. No radiographic evidence of acute osseous injury. 2. Multifocal osteoarthritis as described. Software Packager: PSCB Transcribe Date/Time: Oct 08 2024 11:26A Dictated by : FAUSTINO STOCKTON MD This examination was interpreted and the report reviewed and electronically signed by: FAUSTINO STOCKTON MD on Oct 08 2024 11:29AM [facility] DIVISION OF RADIOLOGY Radiology Study observation (narrative) [facility] No Panel InformationOrdered By: Ccf Provider on 10-08-2024 [facility] TSH SerPl-aCncon 10-08-2024 TSH Qn 2.310 m[IU]/L Normal 0.270-4.20 0 [facility] Comment on above: Order Comment: Speci men Type: BLOOD SPECIMENOrdering Facility: [facility] Address: [address] [place] [address] Performed By: #### 3 016-3 ####[facility] LABCLIA [id number] [place] [address] [place] XR HAND 3V PA/LAT/OBL LTon [...] osseous injury. 2. Multifocal osteoarthritis as described. Software Packager: WILNER Transcribe Date/Time: Oct 08 2024 11:26A Dictated by : FAUSTINO STOCKTON MD This examination was interpreted and the report reviewed and electronically signed by: FAUSTINO STOCKTON MD on Oct 08 2024 11:29AM EST [id number] Normal [facility] XR Hand - left PA and [...] fourth proximal phalanx. DIVISION OF RADIOLOGY Provider, [facility] Omar [facility] - 10/08/2024 * * *Final Report* * [...] osseous injury. 2. Multifocal osteoarthritis as described. Software Packager: [facility] Transcribe Date/Time: Oct 08 2024 11:26A Dictated by : FAUSTINO STOCKTON MD This examination was interpreted and the report reviewed and electronically signed by: FAUSTINO STOCKTON MD on Oct 08 2024 11:29AM [facility] XR WRIST 3V PA/LAT/OBL LTon 10-08-2024 XR [...] osseous injury. 2. Multifocal osteoarthritis as described. Software Packager: WILNER Transcribe Date/Time: Oct 08 2024 11:26A Dictated by : FAUSTINO STOCKTON MD This examination was interpreted and the report reviewed and electronically signed by: FAUSTINO STOCKTON MD on Oct 08 2024 11:29AM EST [id number] Normal [facility] XR Wrist - left PA and [...] fourth proximal phalanx. DIVISION OF RADIOLOGY Provider, [facility] - 10/08/2024 * * *Final Report* [...] osseous injury. 2. Multifocal osteoarthritis as described. Software Packager: PSCB Transcribe Date/Time: Oct 08 2024 11:26A Dictated by : FAUSTINO STOCKTON MD This examination was interpreted and the report reviewed and electronically signed by: FAUSTINO STOCKTON MD on Oct 08 2024 11:29AM [facility] ERCP Biliary/Pancreason ERCP Biliary/Pancreas Normal [facility] ERCP Reporton 10-07-2024 ERCP Report Normal [facility] MR/POSTOP.ANEon 10-07-2024 MR/POSTOP.ANE Normal [facility] MR/QDLBWBJO7ut 10-07-2024 MR/POSTOPAN2 Normal [facility] O.R. Fluoro for C-Dylon - O.R. Fluoro for C-Arm Normal [facility] Surgery Specimen Level Marcela 10-07-2024 Surgery Specimen Level IV Normal [facility] Comment on above: Performed By: #### P SUIV ####[id number] [place], [address] Frederic 09-17-2024 [facility] Telephone (FAMPWS) -- FRAN PAREKH ([id number]) 1945 M Date Time Provider Department 09/17/24 [facility] During your visit today, we recorded the following information about you: Agustín Monroy RN 09/17/2024 11:34 AM Signed Jeny with [facility] calls to request a copy of patient's most recent HGBA1C. Faxed results from 08/15/2024 to [phone] per request. CHAD English Stephanie, RN 09/17/2024 11:43 AM Signed Jeny with [facility] calls to request a copy of patient's most recent office visit notes. Faxed results from 08/15/2024 to [phone] per request. Carli Bowen RN Allergies As [...] mouth daily at bedtime. - CPAP AutoPAP [id number]. Mask per preference, tubing, filters, humidity. [employer]. Dx: G47.33. Fax 30 day compliance report to [phone]. - CPAP Please provide mask fitting. Pt [...] 03/25/2009 Open fracture of distal phalangeal tuft [[id number]*08/31/2011 05/09/2014 Internal derangement of right knee [M23.91] [...] Status:Closed by AGUSTÍN MONROY on 09/17/24 Normal [facility] L/S Spine Min 4 Viewson 08-30 L/S Spine Min 4 Views Normal [facility] Orthopedic Visit Reporton Orthopedic Visit Report Normal [facility] Abdomen/Pelvis W IV Cont ONL Yon 08-31-2024 Abdomen/Pelvis W IV Cont ONLY Normal [facility] Absolute lymphocyte countOrd ered By: Isaias Trivedi on 08-31-2024 Lymphocytes Auto (Unsp spec) [#/Vol] 2.13 10*3/uL 0.83-4.51 [facility] Absolute neutrophil countOrd ered By: Isaias Trivedi on 08-31-2024 Neutrophils (Bld) [#/Vol] 9.2 10*3/uL High 2.0-7.7 [facility] Anion gap in Serum or Plasma Ordered By: Isaias Trivedi on 08-31-2024 Anion gap [Moles/Vol] 12 mmol/L 5- [facility] Automated lymphocyte count a s percentage of total leukocytesOrdered By: Isaias Trivedi on 08-31-2024 Lymphocytes/100 WBC Auto (Unsp spec) 17.0 % Low 19-41 [facility] BUN/creatinine ratioOrdered By: Isaias Trivedi on 08-31-2024 Urea nitrogen/Creatinine [Mass ratio] 14.0 mg/mg 10- [facility] Basophil percentageOrdered B y: Isaias Trivedi on 08-31-2024 Basophils/100 WBC (Bld) 0.5 % 0-1 [facility] Bilirubin Test strip Ql (U)O rdered By: Isaias Trivedi on 08-31-2024 Bilirubin Ql (U) Negative Negative [facility] Bilirubin, totalOrdered By: Isaias Trivedi on 08-31-2024 Bilirubin [Mass/Vol] 0.80 mg/dL 0.00-1.30 [facility] CBC W/Diff, Automatedon Absolute Lymph 2.13 X10 3/uL Normal 0.83-4.51 [facility] Comment on above: Performed By: #### L 500.4050, L100.0100 ####[facility] [address] [place], [address] Absolute Neut 9.2 X10 3/uL High 2.0-7.7 [facility] Comment on above: Performed By: #### L 500.4050, L100.0100 ####[facility] [address] [place], [address] Basophils/100 WBC (Bld) 0.5 % Normal 0-1 [facility] Comment on above: Performed By: #### L 500.4050, L100.0100 ####[facility] [address] [place], [address] Eosinophils/100 WBC (Bld) 1.3 % Normal 0-5 [facility] Comment on above: Performed By: #### L 500.4050, L100.0100 ####[facility] [address] [place], [address] Erythrocyte distribution width (RBC) [Ratio] 13.3 % Normal 11.6-14.6 [facility] Comment on above: Performed By: #### L 500.4050, L100.0100 ####[facility] [address] [place], [address] Hematocrit (Bld) [Volume fraction] 46.1 % Normal 40-54 [facility] Comment on above: Performed By: #### L 500.4050, L100.0100 ####[facility] [address] [place], [address] Hemoglobin (Bld) [Mass/Vol] 15.9 g/dL Normal 13.0-16.5 [facility] Comment on above: Performed By: #### L 500.4050, L100.0100 ####[facility] [address] [place], [address] IG% 0.400 Normal 0.0-0.9 [facility] Comment on above: Result Comment: IG% - Immature Granulocytes (promyelocytes, myelocytes andmetamyelocytes) > 1% indicates that a LEFT SHIFT is Present. Performed By: #### L 500.4050, L100.0100 ####[facility] [address] [place], [address] Lymphocytes/100 WBC (Bld) 17.0 % Low 19-41 [facility] Comment on above: Performed By: #### L 500.4050, L100.0100 ####[facility] [address] [place], [address] MCH (RBC) [Entitic mass] 32.1 pg High 27.0-32.0 [facility] Comment on above: Performed By: #### L 500.4050, L100.0100 ####[facility] [address] [place], [address] MCHC (RBC) [Mass/Vol] 34.5 g/dL Normal 32-[address] [facility] Comment on above: Performed By: #### L 500.4050, L100.0100 ####[facility] [address] [place], [address] MCV (RBC) [Entitic vol] 92.9 fL Normal 80-94 [facility] Comment on above: Performed By: #### L 500.4050, L100.0100 ####[facility] [address] [place], [address] Monocytes/100 WBC (Bld) 7.5 % Normal 0-10 [facility] Comment on above: Performed By: #### L 500.4050, L100.0100 ####[facility] [address] [place], [address] Neutrophils/100 WBC (Bld) 73.3 % High 47-70 [facility] Comment on above: Performed By: #### L 500.4050, L100.0100 ####[facility] [address] [place], [address] Nucleated RBC (Bld) [#/Vol] 0 10*3/uL Normal 0-5 [facility] Comment on above: Performed By: #### L 500.4050, L100.0100 ####[facility] [address] [place], [address] Platelet mean volume (Bld) [Entitic vol] 9.5 fL Normal 6.2-12.0 [facility] Comment on above: Performed By: #### L 500.4050, L100.0100 ####[facility] [address] [place], [address] Platelets (Bld) [#/Vol] 225 10*3/uL Normal 150-450 [facility] Comment on above: Performed By: #### L 500.4050, L100.0100 ####[facility] [address] [place], [address] RBC (Bld) [#/Vol] 4.96 10*6/uL Normal 4.6-6.2 [facility] Comment on above: Performed By: #### L 500.4050, L100.0100 ####[facility] [address] [place], [address] RDW SD 45.3 fl High 35.1-43.9 [facility] Comment on above: Performed By: #### L 500.4050, L100.0100 ####[facility] [address] [place], [address] WBC (Bld) [#/Vol] 12.6 10*3/uL High 4.4-11.0 [facility] Comment on above: Performed By: #### L 500.4050, L100.0100 ####[facility] [address] [place], [address] Elaina 08-31-2024 CN Office Visit (UCWSTR ) -- IGLESIAFRAN Mueller ([id number]) 1945 M Date Time Provider Department 08/31/24 11:[address] [facility] During your visit today, we recorded the following information about you: Cole Campos MD 08/31/2024 11:11 AM Signed [facility] Triage Note: [facility] of abdominal pain for the last day. He is also experiencing current sciatic pain and taking [place]. He has been unable to take pain medicine today because of upset stomach and wants to avoid further aggravating abdominal pain. He is concerned he may have constipation but also has history of diverticulitis. He is in apparent discomfort in the waiting room. He was offered the opportunity to have initial evaluation [facility] with likely referral where imaging is available. He chooses to go to the ED for evaluation instead. He declines EMS transfer. Allergies As of Date: 08/31/2024 Noted Allergy Reaction NORVASC (AMLODIPINE BESYLATE) 09/14/2016 7 - Swelling Comments: pedal edema VENOM-WASP 01/14/2005 7 - Swelling ZITHROMAX (AZITHROMYCIN) 01/14/2005 9 - Itching Date Reviewed: 08/13/2024 Reviewed by: Euince Bruce LPN - Fully Assessed Reason for [...] mouth daily at bedtime. - CPAP AutoPAP [id number]. Mask per preference, tubing, filters, humidity. [employer]. Dx: G47.33. Fax 30 day compliance report to [phone]. - CPAP Please provide mask fitting. Pt [...] 03/25/2009 Open fracture of distal phalangeal tuft [[id number]*08/31/2011 05/09/2014 Internal derangement of right knee [M23.91] [...] vei*10/23/2023 Acute (more content not included)... Normal [facility] Carbon dioxide, total [Moles /volume] in Central venous bloodOrdered By: Isaias Trivedi on 08-31-2024 CO2 [Moles/Vol] 23.3 mmol/L 21.0-32.0 [facility] Chloride assayOrdered By: Alexis Trivedi on 08-31-2024 Chloride [Moles/Vol] 104 mmol/L 98-108 [facility] Comprehensive Metabolic Prof ilon 08-31-2024 Albumin [Mass/Vol] 4.0 g/dL Normal 3.4-4.8 [facility] Comment on above: Performed By: #### L 500.4050, L100.0100 ####[facility] [address] [place], [address] Albumin/Globulin [Mass ratio] 1.3 {ratio} Normal 0.9-2.4 [facility] Comment on above: Performed By: #### L 500.4050, L100.0100 ####[facility] [address] [place], [address] ALK PHOS 86 U/L Normal 40-129 [facility] Comment on above: Performed By: #### L 500.4050, L100.0100 ####[facility] [address] [place], [address] ALT [Catalytic activity/Vol] 20 U/L Normal <=46 [facility] Comment on above: Performed By: #### L 500.4050, L100.0100 ####[facility] [address] [place], [address] AST [Catalytic activity/Vol] 31 U/L Normal <=37 [facility] Comment on above: Result Comment: Hemo lysis present, Results??could be affected.?? Performed By: #### L 500.4050, L100.0100 ####[facility] [address] [place], [address] Bilirubin [Mass/Vol] 0.80 mg/dL Normal 0.00-1.30 [facility] Comment on above: Performed By: #### L 500.4050, L100.0100 ####[facility] [address] [place], [address] BUN/CRE 14.0 RATIO Normal 10-20 [facility] Comment on above: Performed By: #### L 500.4050, L100.0100 ####[facility] [address] [place], [address] Calcium [Mass/Vol] 9.5 mg/dL Normal 7.6-11.0 [facility] Comment on above: Performed By: #### L 500.4050, L100.0100 ####[facility] [address] [place], [address] Chloride [Moles/Vol] 104 mmol/L Normal 98-108 [facility] Comment on above: Performed By: #### L 500.4050, L100.0100 ####[facility] [address] [place], [address] CO2 [Moles/Vol] 23.3 mmol/L Normal 21.0-32.0 [facility] Comment on above: Performed By: #### L 500.4050, L100.0100 ####[facility] [address] [place], [address] Creatinine [Mass/Vol] 1.46 mg/dL High 0.70-1.[address] [facility] Comment on above: Performed By: #### L 500.4050, L100.0100 ####[facility] [address] [place], [address] ECRCL 57.03 ml/min Normal 50-250 [facility] Comment on above: Performed By: #### L 500.4050, L100.0100 ####[facility] [address] [place], [address] GAP 12 Normal 5-15 [facility] Comment on above: Performed By: #### L 500.4050, L100.0100 ####[facility] [address] [place], [address] GFR/1.73 sq M.predicted among non-blacks MDRD (S/P/Bld) [Vol rate/Area] 49 mL/min/{1.73_m2} Low >60 [facility] Comment on above: Result Comment: mL/m in/1.73m2 CKD-EPI Creatinine Equation (2020) Performed By: #### L 500.4050, L100.0100 ####[facility] [address] [place], [address] Globulin (S) [Mass/Vol] 3.2 g/dL Normal 2.2-4.2 [facility] Comment on above: Performed By: #### L 500.4050, L100.0100 ####[facility] [address] [place], [address] Glucose [Mass/Vol] 135 mg/dL High 70-99 [facility] Comment on above: Performed By: #### L 500.4050, L100.0100 ####[facility] [address] [place], [address] Potassium [Moles/Vol] 5.0 mmol/L Normal 3.3-5.[address] [facility] Comment on above: Result Comment: Hemo lysis present, Results??could be affected.?? Performed By: #### L 500.4050, L100.0100 ####[facility] [address] [place], [address] Sodium [Moles/Vol] 139 mmol/L Normal 133-145 [facility] Comment on above: Performed By: #### L 500.4050, L100.0100 ####[facility] [address] [place], [address] T PROT 7.2 g/dL Normal 5.9-8.4 [facility] Comment on above: Performed By: #### L 500.4050, L100.0100 ####[facility] [address] [place], [place], [address] Urea nitrogen [Mass/Vol] 21 mg/dL High 4-19 [facility] Comment on above: Performed By: #### L 500.4050, L100.0100 ####[facility] [address] [place], [place], [id number] Emergency Department Summary on 08-31-2024 Emergency Department Summary Normal [facility] Eosinophil percentageOrdered By: Isaias Trivedi on 08-31-2024 Eosinophils/100 WBC (Bld) 1.3 % 0-5 [facility] Erythrocyte distribution wid th ratioOrdered By: Isaias Trivedi on 08-31-2024 Erythrocyte distribution width (RBC) [Ratio] 13.3 % 11.6-14.6 [facility] Erythrocyte distribution wid th standard deviationOrdered By: Isaias Trivedi on 08-31-2024 Erythrocyte distribution width (RBC) [Ratio] 45.3 fl High 35.1-43.9 [facility] Glomerular filtration rate ( GFR) estimation/1.73 sq m using serum, plasma, or whole bOrdered By: Isaias Trivedi on 08-31-2024 GFR/1.73 sq M.predicted among non-blacks MDRD (S/P/Bld) [Vol rate/Area] 49 mL/min/{1.73_m2} Low >60 [facility] Comment on above: mL/min/1.73m2 CKD-EP I Creatinine Equation (2020) Hematocrit Auto (Bld) [Volum e fraction]Ordered By: Isaias Trivedi on 08-31-2024 Hematocrit (Bld) [Volume fraction] 46.1 % 40-54 [facility] Hemoglobin measurementOrdere d By: Isaias Trivedi on 08-31-2024 Hemoglobin (Bld) [Mass/Vol] 15.9 g/dL 13.0-16.5 [facility] Immature granulocytes/100 WB C Auto (Bld)Ordered By: Isaias Trivedi on 08-31-2024 Immature granulocytes/100 WBC (Bld) 0.400 % 0.0-0.9 [facility] Comment on above: IG% - Immature Granu locytes (promyelocytes, myelocytes and metamyelocytes) > 1% indicates that a LEFT SHIFT is Present. Ketones Test strip Ql (U)Ord ered By: Isaias Trivedi on 08-31-2024 Ketones Ql (U) Negative Negative [facility] Laboratory - Chemistry and C hemistry - challengeOrdered By: Isaias Trivedi on 08-31-2024 AST [Catalytic activity/Vol] 31 U/L <38 [facility] Comment on above: Hemolysis present, R esults could be affected. MCV (mean corpuscular volume ) determinationOrdered By: Isaias Trivedi on 08-31-2024 MCV (RBC) [Entitic vol] 92.9 fL 80-94 [facility] Mean corpuscular hemoglobin (MCH) determinationOrdered By: Isaias Trivedi on 08-31-2024 MCH (RBC) [Entitic mass] 32.1 pg High 27.0-32.0 [facility] Mean corpuscular hemoglobin concentration (MCHC) determinationOrdered By: Isaias Trivedi on 08-31-2024 MCHC (RBC) [Mass/Vol] 34.5 g/dL 32-[address] [facility] Mean platelet volume determi nationOrdered By: Isaias Trivedi on 08-31-2024 Platelet mean volume (Bld) [Entitic vol] 9.5 fL 6.2-12.0 [facility] Microscopic analysis of urin e for red blood cells (RBC)Ordered By: Isaias Trivedi on 08-31-2024 Microscopic analysis of urine for red blood cells (RBC) 0-5 SEEN /hpf 0-5 [facility] Monocyte percentageOrdered B y: Isaias Trivedi on 08-31-2024 Monocytes/100 WBC (Bld) 7.5 % 0-10 [facility] Mucus LM Ql (Urine sed)Order ed By: Isaias Trivedi on 08-31-2024 Mucus Ql (Urine sed) 0 SEEN /hpf [facility] Neutrophil percentageOrdered By: Isaias Trivedi on 08-31-2024 Neutrophils/100 WBC (Bld) 73.3 % High 47-70 [facility] Nitrite Test strip Ql (U)Ord ered By: Isaias Trivedi on 08-31-2024 Nitrite Ql (U) Negative Negative [facility] Nucleated red blood cell per centageOrdered By: Isaias Trivedi on 08-31-2024 Nucleated RBC/100 WBC (Bld) [Ratio] 0 % 0-5 [facility] Platelet countOrdered By: Alxeis Trivedi on 08-31-2024 Platelets (Bld) [#/Vol] 225 10*3/uL 150-450 [facility] Potassium measurement (mass/ volume)Ordered By: Isaias Trivedi on 08-31-2024 Potassium (Unsp spec) [Mass/Vol] 5.0 mmol/L 3.3-5.1 [facility] Comment on above: Hemolysis present, R esults could be affected. Protein Test strip Ql (U)Ord ered By: Isaias Trivedi on 08-31-2024 Protein Ql (U) 30 mg/dl High Negative [facility] RBC Auto (Bld) [#/Vol]Ordere d By: Isaias Trivedi on 08-31-2024 RBC (Bld) [#/Vol] 4.96 10*6/uL 4.6-6.2 [facility] Serum creatinine measurement (mass/volume)Ordered By: Isaias Trivedi on 08-31-2024 Creatinine [Mass/Vol] 1.46 mg/dL High 0.70-1.[address] [facility] Serum globulin measurementOr dered By: Isaias Trivedi on 08-31-2024 Globulin (S) [Mass/Vol] 3.2 g/dL 2.2-4.2 [facility] Serum glucose measurement (m ass/volume)Ordered By: Isaias Trivedi on 08-31-2024 Glucose [Mass/Vol] 135 mg/dL High 70-99 [facility] Serum or plasma alanine wilde otransferase (ALT) measurementOrdered By: Isaias Trivedi on 08-31-2024 ALT [Catalytic activity/Vol] 20 U/L <47 [facility] Serum or plasma albumin anson urement (mass/volume)Ordered By: Isaias Trivedi on 08-31-2024 Albumin [Mass/Vol] 4.0 g/dL 3.4-4.8 [facility] Serum or plasma albumin/glob ulin mass ratioOrdered By: Isaias Trivedi on 08-31-2024 Albumin/Globulin [Mass ratio] 1.3 {ratio} 0.9-2.4 [facility] Serum or plasma alkaline rui sphatase measurementOrdered By: Isaias Trivedi on 08-31-2024 ALP [Catalytic activity/Vol] 86 U/L 40-129 [facility] Serum or plasma calcium anson urement (mass/volume)Ordered By: Isaias Trivedi on 08-31-2024 Calcium [Mass/Vol] 9.5 mg/dL 7.6-11.0 [facility] Serum or plasma urea nitroge n measurement (mass/volume)Ordered By: Isaias Trivedi on 08-31-2024 Urea nitrogen [Mass/Vol] 21 mg/dL High 4-19 [facility] Sodium levelOrdered By: Isaias Trivedi on 08-31-2024 Sodium [Moles/Vol] 139 mmol/L 133-145 [facility] Squamous epithelial cells de tection in urine sediment by light microscopyOrdered By: Isaias Trivedi on 08-31-2024 Epithelial cells.squamous LM Ql (Urine sed) 0 SEEN /hpf 0-5 [facility] Total proteinOrdered By: Marianne Trivedi on 08-31-2024 Protein [Mass/Vol] 7.2 g/dL 5.9-8.4 [facility] Urinalysis, Completeon 08-31 RBC 0-5 SEEN Normal 0-5 [facility] Comment on above: Order Comment: KATHERINE REGANOR TO SPECIFY Performed By: #### L 400.0001 ####[facility] [address] [facility] [place], [place], [phone] WBC 0-5 SEEN Normal 0-5 [facility] Comment on above: Order Comment: KATHERINE REGANOR TO SPECIFY Performed By: #### L 400.0001 ####[facility] [address] [facility] [place], [address] BACTERIA 0 SEEN Normal None Seen [facility] Comment on above: Order Comment: KATHERINE REGANOR TO SPECIFY Performed By: #### L 400.0001 ####[facility] [address] [place], [address] EPI,SQUAMOUS 0 SEEN Normal 0-5 [facility] Comment on above: Order Comment: KATHERINE CTOR TO SPECIFY Performed By: #### L 400.0001 ####[facility] [address] [place], [address] Mucus Ql (Urine sed) 0 SEEN Normal [facility] Comment on above: Order Comment: KATHERINE CTOR TO SPECIFY Performed By: #### L 400.0001 ####[facility] [address] [place], [place], [phone] Urine clarityOrdered By: Marianne Trivedi on 08-31-2024 Clarity (U) Clear Clear [facility] Urine color determinationOrd ered By: Isaias Trivedi on 08-31-2024 Color (U) Yellow Yellow [facility] Urine glucose detectionOrder ed By: Isaias Trivedi on 08-31-2024 Glucose Ql (U) Normal mg/dl Normal [facility] Urine leukocyte esterase det ection by dipstickOrdered By: Isaias Trivedi on 08-31-2024 Leukocyte esterase Test strip Ql (U) Negative Negative [facility] Urine pHOrdered By: Isaias hinton on 08-31-2024 pH (U) 6.5 [pH] 5.0 - 8.0 [facility] Urine sediment bacteria coun t by microscopy (number/high power field)Ordered By: Isaias Trivedi on 08-31-2024 Bacteria LM.HPF (Urine sed) [#/Area] 0 /[HPF] None Seen [facility] Urine specific gravity measu rementOrdered By: Isaias Trivedi on 08-31-2024 Specific gravity (U) [Rel density] 1.010 1.002-1.03 0 [facility] Urine urobilinogen measureme ntOrdered By: Isaias Trivedi on 08-31-2024 Urobilinogen Ql (U) Normal mg/dl Normal [facility] White blood cell (WBC) count Ordered By: Isaias Trivedi on 08-31-2024 WBC (Bld) [#/Vol] 12.6 10*3/uL High 4.4-11.0 [facility] White blood cell countOrdere d By: Isaias Trivedi on 08-31-2024 White blood cell count 0-5 SEEN /hpf 0-5 [facility] CNPNon 08-27-2024 CNPN Telephone (FAMPWS) -- FRAN PAREKH ([id number]) 1945 M Date Time Provider Department 08/27/24 [facility] your visit today, we recorded the following information about you: Sissy Campbell LPN 08/27/2024 12:00 PM Signed Received form from [facility] regarding upcoming procedure [...] mouth daily at bedtime. - CPAP AutoPAP [id number]. Mask per preference, tubing, filters, humidity. [employer]. Dx: G47.33. Fax 30 day compliance report to [phone]. - CPAP Please provide mask fitting. Pt [...] 03/25/2009 Open fracture of distal phalangeal tuft [[id number]*08/31/2011 05/09/2014 Internal derangement of right knee [M23.91] [...] CAMPBELL on (more content not included)... Normal [facility] Comprehensive metabolic 2000 panelon 08-15-2024 Albumin [Mass/Vol] 3.9 g/dL Normal 3.9-4.9 [facility] Comment on above: Order Comment: Speci men Type: BLOOD SPECIMENOrdering Facility: [facility] Address: [address] [place] [address] Performed By: #### 2 4323-8, 50685-0, 6-3 ####[facility] [id number] [place] [address] [place] ALP [Catalytic activity/Vol] 85 U/L Normal 38-113 [facility] Comment on above: Order Comment: Speci men Type: BLOOD SPECIMENOrdering Facility: [facility] Address: [address] [place] [address] Performed By: #### 2 4323-8, 42344-1, 6-3 ####[facility] [id number] [place] [id number] [place] ALT [Catalytic activity/Vol] 22 U/L Normal 10-54 [facility] Comment on above: Order Comment: Speci men Type: BLOOD SPECIMENOrdering Facility: [facility] Address: [address] [place] [address] Performed By: #### 2 4323-8, 59699-7, 6-3 ####[facility] LABIA [id number] [address] [address] [place] Anion gap [Moles/Vol] 13 mmol/L Normal 8-15 [facility] Comment on above: Order Comment: Speci men Type: BLOOD SPECIMENOrdering Facility: [facility] Address: [address] [place] [place] [id number] Performed By: #### 2 4323-8, 47408-3, 6-3 ####[facility] LABCLIA [id number] [address] [address] [place] AST [Catalytic activity/Vol] 25 U/L Normal 14-40 [facility] Comment on above: Order Comment: Speci men Type: BLOOD SPECIMENOrdering Facility: [facility] Address: [address] [place], [place] [address] Performed By: #### 2 4323-8, 72025-9, 3015-3 ####[facility] LABIA [id number] [place] [phone] [place] Bilirubin [Mass/Vol] 0.5 mg/dL Normal 0.2-1.[address] [facility] Comment on above: Order Comment: Speci men Type: BLOOD SPECIMENOrdering Facility: [facility] Address: [address] [place] [address] Performed By: #### 2 4323-8, 71798-4, 3015-3 ####[facility] LABIA [id number] [place] [id number] [place] Calcium [Mass/Vol] 9.1 mg/dL Normal 8.5-10.2 [facility] Comment on above: Order Comment: Speci men Type: BLOOD SPECIMENOrdering Facility: [facility] Address: [address] [place], [place] [address] Performed By: #### 2 4323-8, 79069-4, 6-3 ####[facility] LABIA [id number] [address] [address] [place] Chloride [Moles/Vol] 104 mmol/L Normal 98-[address] [facility] Comment on above: Order Comment: Speci men Type: BLOOD SPECIMENOrdering Facility: [facility] Address: [address] [place] [address] Performed By: #### 2 4323-8, 11923-0, 6-3 ####[facility] LABCLIA [id number] [place] [phone] [place] CO2 [Moles/Vol] 22 mmol/L Normal 22-30 [facility] Comment on above: Order Comment: Speci men Type: BLOOD SPECIMENOrdering Facility: [facility] Address: [address] [place] [address] Performed By: #### 2 4323-8, 00349-7, 3015-3 ####[facility] LABIA [id number] [place] [address] [place] Creatinine [Mass/Vol] 1.40 mg/dL High 0.73-1.22 [facility] Comment on above: Order Comment: Speci men Type: BLOOD SPECIMENOrdering Facility: [facility] Address: [address] [place] [address] Performed By: #### 2 4323-8, 19628-5, 3 ####[facility] LABIA [id number] [place] [address] [place] Creatinine and Glomerular filtration rate.predicted panel (S/P/Bld) 51 mL/min/1.73m??? Low >=60 [facility] Comment on above: Order Comment: Speci men Type: BLOOD SPECIMENOrdering Facility: [facility] Address: [address] [place] [address] Result Comment: Danika mated Glomerular Filtration Rate [...] actual GFR. Performed By: #### 2 4323-8, 96990-6, 6-3 ####[facility] LABCLIA [id number] [place] [phone] [place] Glucose [Mass/Vol] 123 mg/dL High 74-99 [facility] Comment on above: Order Comment: Speci men Type: BLOOD SPECIMENOrdering Facility: [facility] Address: [address] [place] [address] Result Comment: The [place] Diabetes Association (ADA) provides guidance for cutoff [...] Standards of Medical Care in Diabetes 2016, [place] Diabetes Association. Diabetes Care. 2016.39(Suppl 1). Performed By: #### 2 4323-8, 19636-3, 3015-3 ####[facility] [id number] [place] [phone] [place] Potassium [Moles/Vol] 4.4 mmol/L Normal 3.7-5.1 [facility] Comment on above: Order Comment: Speci men Type: BLOOD SPECIMENOrdering Facility: [facility] Address: [address] [place] [address] Performed By: #### 2 4323-8, 80425-3, 3015-3 ####[facility] [id number] [place] [phone] [place] Protein [Mass/Vol] 6.9 g/dL Normal 6.3-8.0 [facility] Comment on above: Order Comment: Speci men Type: BLOOD SPECIMENOrdering Facility: [facility] Address: [address] [place] [address] Performed By: #### 2 4323-8, 11985-4, 3016-3 ####[facility] LABCLIA [id number] [address] [address] [place] Sodium [Moles/Vol] 139 mmol/L Normal 136-144 [facility] Comment on above: Order Comment: Speci men Type: BLOOD SPECIMENOrdering Facility: [facility] Address: [address] [place] [address] Performed By: #### 2 4323-8, 11583-3, 3016-3 ####[facility] LABIA [id number] [address] [address] [place] Urea nitrogen [Mass/Vol] 19 mg/dL Normal 9-24 [facility] Comment on above: Order Comment: Speci men Type: BLOOD SPECIMENOrdering Facility: [facility] Address: [address] [place] [address] Performed By: #### 2 4323-8, 19854-1, 3016-3 ####[facility] [id number] [address] [address] [place] HbA1c (Bld)on 08-15-2024 Average glucose Estimated from glycated hemoglobin (Bld) [Mass/Vol] 126 mg/dL Normal [facility] Comment on above: Order Comment: Speci men Type: BLOOD SPECIMENOrdering Facility: [facility] Address: [address] [place] [address] Result Comment: eAG: (Estimated average glucose) is a calculated value from HgbA1c and is passenger service representative of the average blood glucose level in the last 2-3 month period. Performed By: #### 5 5454-3 ####[facility] [id number] [address] [address] [place] HbA1c (Bld) [Mass fraction] 6.0 % High 4.3-5.6 [facility] Comment on above: Order Comment: Speci men Type: BLOOD SPECIMENOrdering Facility: [facility] Address: [address] [place] [address] Result Comment: [place] Diabetes Association guidelines indicate that patients with HgbA1c in the range 5.7-6.4% are at increased risk for development of diabetes, and intervention by lifestyle modification may be beneficial. HgbA1c greater or equal to 6.5% is considered diagnostic of diabetes. Performed By: #### 5 5454-3 ####[facility] LABCLIA [id number] [facility] [place] [id number] [place] Lipid 1996 panelon 5 Cholesterol [Mass/Vol] 138 mg/dL Normal <200 [facility] Comment on above: Order Comment: Speci men Type: BLOOD SPECIMENOrdering Facility: [facility] Address: [address] [place] [address] Result Comment: <200 mg/dL, Desirable 200-239 mg/dL, Borderline high >239 mg/dL, High Performed By: #### 2 4323-8, 66500-2, 3016-3 ####[facility] LABCLIA [id number] [address], [address] STATES OF [facility] Cholesterol in HDL [Mass/Vol] 31 mg/dL Low >39 [facility] Comment on above: Order Comment: Ruthi men Type: BLOOD SPECIMENOrdering Facility: [facility] Address: [address] [place] [address] Result Comment: 40-5 9 mg/dL, Acceptable >59 mg/dL, High: Negative risk factor for coronary heart disease <40 mg/dL, Low: Positive risk factor for coronary heart disease Performed By: #### 2 4323-8, 90563-1, 3016-3 ####[facility] LABCLIA [id number] [place] [phone] [facility] Cholesterol in LDL [Mass/Vol] 59 mg/dL Normal <100 [facility] Comment on above: Order Comment: Ruthi men Type: BLOOD SPECIMENOrdering Facility: [facility] Address: [address] [place] [address] Result Comment: <100 mg/dL, Optimal 100-129 mg/dL, Near optimal/above optimal 130-159 mg/dL, Borderline high 160-189 mg/dL, High >189 mg/dL, Very high Secondary prevention optimal LDL Cholesterol levels are recommended to be < 70 mg/dL Performed By: #### 2 4323-8, 35591-5, 6-3 ####[facility] LABCLIA [id number] [address] [place] [address] [place] Cholesterol in LDL/Cholesterol in HDL [Mass ratio] 1.90 {ratio} Normal <2.54 [facility] Comment on above: Order Comment: Speci men Type: BLOOD SPECIMENOrdering Facility: [facility] Address: [address] [place] [address] Result Comment: Refe rence: 1. National Cholesterol Education Program ATP III Guideline At-A-Glance Quick Desk Reference: National Heart, Lung, and Blood [place]. National Institutes of Health. 2001: NIH Publication No. 01-3305. 2. An International Atherosclerosis Society position paper: global recommendations for the management of dyslipidemia: executive summary, Atherosclerosis. 2014: 232(2):410-413. Performed By: #### 2 4323-8, 49854-0, 3015-3 ####[facility] LABIA [id number] [address] [address] [place] Cholesterol in VLDL [Mass/Vol] 48 mg/dL High <30 [facility] Comment on above: Order Comment: Speci men Type: BLOOD SPECIMENOrdering Facility: [facility] Address: [address] [place] [address] Performed By: #### 2 4323-8, 54982-9, 3015-3 ####[facility] LABCLIA [id number] [facility] [address] [address] [place] Cholesterol non HDL [Mass/Vol] 107 mg/dL Normal <130 [facility] Comment on above: Order Comment: Speci men Type: BLOOD SPECIMENOrdering Facility: [facility] Address: [address] [place] [address] Result Comment: <130 mg/dL, Optimal 130-159 mg/dL, Near optimal/above optimal 160-189 mg/dL, Borderline high 190-219 mg/dL, High >219 mg/dL, Very high Secondary prevention optimal non HDL Cholesterol levels are recommended to be <100 mg/dL Performed By: #### 2 4323-8, 29100-7, 3015-3 ####[facility] LABCLIA [id number] [facility] [address] [place] [address] [place] Cholesterol.total/Chol esterol in HDL [Mass ratio] 4.45 {ratio} Normal <5.10 [facility] Comment on above: Order Comment: Speci men Type: BLOOD SPECIMENOrdering Facility: [facility] Address: [facility] [place] [address] Performed By: #### 2 4323-8, 33738-3, 3 ####[facility] LABCLIA [id number] [address] [place] [address] [place] FASTING TIME 12 hrs Normal [facility] Comment on above: Order Comment: Speci men Type: BLOOD SPECIMENOrdering Facility: [facility] Address: [address] [place] [address] Performed By: #### 2 4323-8, 63413-9, 3 ####[facility] LABCLIA [id number] [address] [place] [address] [place] Triglyceride [Mass/Vol] 242 mg/dL High <150 [facility] Comment on above: Order Comment: Speci men Type: BLOOD SPECIMENOrdering Facility: [facility] Address: [address] [place] [id number] Result Comment: <150 mg/dL, Normal 150-199 mg/dL, Borderline high 200-499 mg/dL, High >499 mg/dL, Very high Performed By: #### 2 4323-8, 91014-4, 3015-3 ####[facility] LABCLIA [id number] [address] [place] [address] [place] TSH SerPl-aCncon 08-15-2024 TSH Qn 7.390 m[IU]/L High 0.270-4.20 0 [facility] Comment on above: Order Comment: Speci men Type: BLOOD SPECIMENOrdering Facility: [facility] Address: [address] [place] [address] [place] [address] Performed By: #### 2 4323-8, 26565-5, 3016-3 ####[facility] LABCLIA [id number] [facility] GRIFFITHSKAIS[facility] F[facility] HOSPITALRuth [address] OF [facility] CNOVon 08-13-2024 CNOV Office Visit (FAMPWS ) -- FRAN PAREKH ([id number]) 1945 M Date Time Provider Department 08/13/24 11:40 AM MARILIA OROZCO During your visit today, we recorded the following information about you: Pulse Respiration Blood pressure Weight 65/minute 18/minute 118/82 133.7 kg Height 1.766 m Marilia 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 Sher, non licensed operator, for hx of choledocholithiasis. Recent ERCP on [...] of skin of nose Dr. Chowdary in [place] Stage 3a chronic kidney disease (HCC) Venous [...] not taking: Reported on 12/19/2023) CPAP AutoPAP 10-90rkD1T. Mask per preference, tubing, filters, humidity. [employer]. Dx: G47.33. Fax 30 day compliance report to [phone]. CPAP Please provide mask fitting. Pt with [...] signs review (more content not included)... Normal [facility] Gastroenterology Visit Repor ton 07-23-2024 Gastroenterology Visit Report Normal [facility] ERCP Biliary/Pancreason ERCP Biliary/Pancreas Normal [facility] ERCP Reporton 07-04-2024 ERCP Report Normal [facility] Immunohistochemical Stainson 07-04-2024 Immunohistochemical Stains Normal [facility] Comment on above: Performed By: #### P IMAK ####[facility] [address] [place], [place], [id number] MR/POSTOP.ANEon 07-04-2024 MR/POSTOP.ANE Normal [facility] MR/FXNEBFXK4dl 07-04-2024 MR/POSTOPAN2 Normal [facility] Special Stain Group IIon Special Stain Group II Normal [facility] Comment on above: Performed By: #### P SSII ####[facility] [address] [place], [address] MR/PAT.ANEon 07-02-2024 MR/PAT.ANE Normal [facility] CNPNon 06-24-2024 [facility] Telephone ([facility]) -- FRAN PAREKH ([id number]) 1945 M Date Time Provider Department 06/24/24 VICTOR MANUEL BURROWS [facility] During your visit today, we recorded the following information about you: Home Horton PSS 06/24/2024 2:18 PM Addendum Called patient to reschedule 10/22/[address] Burrows, 1st attempt, left . Please offer virtual appointment at [place] [address] or [facility]. Home Horton PSS 06/28/2024 11:06 AM Signed Patient rescheduled [...] hour before dental procedure. - CPAP AutoPAP [id number]. Mask per preference, tubing, filters, humidity. [employer]. Dx: G47.33. Fax 30 day compliance report to [phone]. - CPAP Please provide mask fitting. Pt [...] 03/25/2009 Open fracture of distal phalangeal tuft [[id number]*08/31/2011 05/09/2014 Internal derangement of right knee [M23.91] [...] gait [R26.81] 12/18/2023 Encounter Status:Closed by HOME HORTON on 06/28/24 Normal [facility] Gastroenterology Visit Repor ton 04-16-2024 Gastroenterology Visit Report Normal [facility] Basic Metabolic Profile (BMP )on 04-04-2024 BUN Normal 7-18 [facility] Comment on above: Result Comment: Canc elled via OM: Order cancelled - Patient discharged Performed By: #### L 100.0100, L500.2500 ####[facility] [address] [facility] [address] BUN/CRE Normal 10-20 [facility] Comment on above: Result Comment: Canc elled via OM: Order cancelled - Patient discharged Performed By: #### L 100.0100, L500.2500 ####[facility] [address] [place], [address] CA,Total Normal 8.5-10.1 [facility] Comment on above: Result Comment: Canc elled via OM: Order cancelled - Patient discharged Performed By: #### L 100.0100, L500.2500 ####[facility] [address] [facility] [address] CL Normal 98-107 [facility] Comment on above: Result Comment: Canc elled via OM: Order cancelled - Patient discharged Performed By: #### L 100.0100, L500.2500 ####[facility] [address] [place], [address] CO2 Normal 21.0-32.0 [facility] Comment on above: Result Comment: Canc elled via OM: Order cancelled - Patient discharged Performed By: #### L 100.0100, L500.2500 ####[facility] [address] [place], [address] CREAT,SERUM Normal 0.70-1.30 [facility] Comment on above: Result Comment: Canc elled via OM: Order cancelled - Patient discharged Performed By: #### L 100.0100, L500.2500 ####[facility] [address] [place], [address] EST GFR Normal >60 [facility] Comment on above: Result Comment: Canc elled via OM: Order cancelled - Patient discharged Performed By: #### L 100.0100, L500.2500 ####[facility] [address] [place], [address] EST GFR - AA Normal >60 [facility] Comment on above: Result Comment: Canc elled via OM: Order cancelled - Patient discharged Performed By: #### L 100.0100, L500.2500 ####[facility] [address] [place], [address] GAP Normal 5-15 [facility] Comment on above: Result Comment: Canc elled via OM: Order cancelled - Patient discharged Performed By: #### L 100.0100, L500.2500 ####[facility] [address] [place], [address] GLU Normal 74-106 [facility] Comment on above: Result Comment: Canc elled via OM: Order cancelled - Patient discharged Performed By: #### L 100.0100, L500.2500 ####[facility] [address] [place], [address] Potassium Normal 3.5-5.1 [facility] Comment on above: Result Comment: Canc elled via OM: Order cancelled - Patient discharged Performed By: #### L 100.0100, L500.2500 ####[facility] [address] [place], [address] Basic Metabolic Profile (BMP) Normal 136-145 [facility] Comment on above: Result Comment: Canc elled via OM: Order cancelled - Patient discharged Performed By: #### L 100.0100, L500.2500 ####[facility] [address] [place], [address] CBC W/Diff, Automatedon 12-0 -2023 Absolute Neut Normal 2.0-7.7 [facility] Comment on above: Result Comment: Canc elled via OM: Order cancelled - Patient discharged Performed By: #### L 100.0100, L500.2500 ####[facility] [address] [place], [address] HCT Normal 40-54 [facility] Comment on above: Result Comment: Canc elled via OM: Order cancelled - Patient discharged Performed By: #### L 100.0100, L500.2500 ####[facility] [address] [place], [address] HGB Normal 13.0-16.5 [facility] Comment on above: Result Comment: Canc elled via OM: Order cancelled - Patient discharged Performed By: #### L 100.0100, L500.2500 ####[facility] [address] [place], [address] MCH Normal 27.0-32.0 [facility] Comment on above: Result Comment: Canc elled via OM: Order cancelled - Patient discharged Performed By: #### L 100.0100, L500.2500 ####[facility] [address] [place], [address] MCHC Normal 32-36 [facility] Comment on above: Result Comment: Canc elled via OM: Order cancelled - Patient discharged Performed By: #### L 100.0100, L500.2500 ####[facility] [address] [place], [address] MCV Normal 80-94 [facility] Comment on above: Result Comment: Canc elled via OM: Order cancelled - Patient discharged Performed By: #### L 100.0100, L500.2500 ####[facility] [address] [place], [address] NEUT% Normal 47-70 [facility] Comment on above: Result Comment: Canc elled via OM: Order cancelled - Patient discharged Performed By: #### L 100.0100, L500.2500 ####[facility] [address] [place], [address] PLT Normal 150-450 [facility] Comment on above: Result Comment: Canc elled via OM: Order cancelled - Patient discharged Performed By: #### L 100.0100, L500.2500 ####[facility] [address] [place], [address] RBC Normal 4.6-6.2 [facility] Comment on above: Result Comment: Canc elled via OM: Order cancelled - Patient discharged Performed By: #### L 100.0100, L500.2500 ####[facility] [address] [place], [address] RDW CV Normal 11.6-14.6 [facility] Comment on above: Result Comment: Canc elled via OM: Order cancelled - Patient discharged Performed By: #### L 100.0100, L500.2500 ####[facility] [address] [place], [address] RDW SD Normal 35.1-43.9 [facility] Comment on above: Result Comment: Canc elled via OM: Order cancelled - Patient discharged Performed By: #### L 100.0100, L500.2500 ####[facility] [address] [place], [address] WBC Normal 4.4-11.0 [facility] Comment on above: Result Comment: Canc elled via OM: Order cancelled - Patient discharged Performed By: #### L 100.0100, L500.2500 ####[facility] [address] [place], [address] Basic Metabolic Profile (BMP )on 04-03-2024 BUN Normal 7-18 [facility] Comment on above: Result Comment: Canc elled via OM: Order cancelled - Patient discharged Performed By: #### L 100.0100, L500.2500 ####[facility] [address] [place], [address] BUN/CRE Normal 10-20 [facility] Comment on above: Result Comment: Canc elled via OM: Order cancelled - Patient discharged Performed By: #### L 100.0100, L500.2500 ####[facility] [address] [place], [address] CA,Total Normal 8.5-10.1 [facility] Comment on above: Result Comment: Canc elled via OM: Order cancelled - Patient discharged Performed By: #### L 100.0100, L500.2500 ####[facility] [address] [place], [address] CL Normal 98-107 [facility] Comment on above: Result Comment: Canc elled via OM: Order cancelled - Patient discharged Performed By: #### L 100.0100, L500.2500 ####[facility] [address] [place], [address] CO2 Normal 21.0-32.0 [facility] Comment on above: Result Comment: Canc elled via OM: Order cancelled - Patient discharged Performed By: #### L 100.0100, L500.2500 ####[facility] [address] [place], [address] CREAT,SERUM Normal 0.70-1.30 [facility] Comment on above: Result Comment: Canc elled via OM: Order cancelled - Patient discharged Performed By: #### L 100.0100, L500.2500 ####[facility] [address] [place], [address] EST GFR Normal >60 [facility] Comment on above: Result Comment: Canc elled via OM: Order cancelled - Patient discharged Performed By: #### L 100.0100, L500.2500 ####[facility] [address] [place], [address] EST GFR - AA Normal >60 [facility] Comment on above: Result Comment: Canc elled via OM: Order cancelled - Patient discharged Performed By: #### L 100.0100, L500.2500 ####[facility] [address] [place], [address] GAP Normal 5-15 [facility] Comment on above: Result Comment: Canc elled via OM: Order cancelled - Patient discharged Performed By: #### L 100.0100, L500.2500 ####[facility] [address] [place], [address] GLU Normal 74-106 [facility] Comment on above: Result Comment: Canc elled via OM: Order cancelled - Patient discharged Performed By: #### L 100.0100, L500.2500 ####[facility] [address] [place], [address] Potassium Normal 3.5-5.1 [facility] Comment on above: Result Comment: Canc elled via OM: Order cancelled - Patient discharged Performed By: #### L 100.0100, L500.2500 ####[facility] [address] [place], [address] Basic Metabolic Profile (BMP) Normal 136-145 [facility] Comment on above: Result Comment: Canc elled via OM: Order cancelled - Patient discharged Performed By: #### L 100.0100, L500.2500 ####[facility] [address] [place], [address] CBC W/Diff, Automatedon 12-0 Absolute Neut Normal 2.0-7.7 [facility] Comment on above: Result Comment: Canc elled via OM: Order cancelled - Patient discharged Performed By: #### L 100.0100, L500.2500 ####[facility] [address] [place], [address] HCT Normal 40-54 [facility] Comment on above: Result Comment: Canc elled via OM: Order cancelled - Patient discharged Performed By: #### L 100.0100, L500.2500 ####[facility] [address] [place], [address] HGB Normal 13.0-16.5 [facility] Comment on above: Result Comment: Canc elled via OM: Order cancelled - Patient discharged Performed By: #### L 100.0100, L500.2500 ####[facility] [address] [place], [address] MCH Normal 27.0-32.0 [facility] Comment on above: Result Comment: Canc elled via OM: Order cancelled - Patient discharged Performed By: #### L 100.0100, L500.2500 ####[facility] [address] [place], [address] MCHC Normal 32-36 [facility] Comment on above: Result Comment: Canc elled via OM: Order cancelled - Patient discharged Performed By: #### L 100.0100, L500.2500 ####[facility] [address] [place], [address] MCV Normal 80-94 [facility] Comment on above: Result Comment: Canc elled via OM: Order cancelled - Patient discharged Performed By: #### L 100.0100, L500.2500 ####[facility] [address] [place], [address] NEUT% Normal 47-70 [facility] Comment on above: Result Comment: Canc elled via OM: Order cancelled - Patient discharged Performed By: #### L 100.0100, L500.2500 ####[facility] [address] [place], [address] PLT Normal 150-450 [facility] Comment on above: Result Comment: Canc elled via OM: Order cancelled - Patient discharged Performed By: #### L 100.0100, L500.2500 ####[facility] [address] [place], [address] RBC Normal 4.6-6.2 [facility] Comment on above: Result Comment: Canc elled via OM: Order cancelled - Patient discharged Performed By: #### L 100.0100, L500.2500 ####[facility] [address] [place], [address] RDW CV Normal 11.6-14.6 [facility] Comment on above: Result Comment: Canc elled via OM: Order cancelled - Patient discharged Performed By: #### L 100.0100, L500.2500 ####[facility] [address] [place], [address] RDW SD Normal 35.1-43.9 [facility] Comment on above: Result Comment: Canc elled via OM: Order cancelled - Patient discharged Performed By: #### L 100.0100, L500.2500 ####[facility] [address] [place], [address] WBC Normal 4.4-11.0 [facility] Comment on above: Result Comment: Canc elled via OM: Order cancelled - Patient discharged Performed By: #### L 100.0100, L500.2500 ####[facility] [address] [place], [address] Basic Metabolic Profile (BMP )on 04-02-2024 BUN Normal 7-18 [facility] Comment on above: Result Comment: Canc elled via OM: Order cancelled - Patient discharged Performed By: #### L 100.0100, L500.2500 ####[facility] [address] [place], [address] BUN/CRE Normal 10-20 [facility] Comment on above: Result Comment: Canc elled via OM: Order cancelled - Patient discharged Performed By: #### L 100.0100, L500.2500 ####[facility] [address] [place], [address] CA,Total Normal 8.5-10.1 [facility] Comment on above: Result Comment: Canc elled via OM: Order cancelled - Patient discharged Performed By: #### L 100.0100, L500.2500 ####[facility] [address] [place], [address] CL Normal 98-107 [facility] Comment on above: Result Comment: Canc elled via OM: Order cancelled - Patient discharged Performed By: #### L 100.0100, L500.2500 ####[facility] [address] [place], [address] CO2 Normal 21.0-32.0 [facility] Comment on above: Result Comment: Canc elled via OM: Order cancelled - Patient discharged Performed By: #### L 100.0100, L500.2500 ####[facility] [address] [place], [address] CREAT,SERUM Normal 0.70-1.30 [facility] Comment on above: Result Comment: Canc elled via OM: Order cancelled - Patient discharged Performed By: #### L 100.0100, L500.2500 ####[facility] [address] [place], [address] EST GFR Normal >60 [facility] Comment on above: Result Comment: Canc elled via OM: Order cancelled - Patient discharged Performed By: #### L 100.0100, L500.2500 ####[facility] [address] [place], [address] EST GFR - AA Normal >60 [facility] Comment on above: Result Comment: Canc elled via OM: Order cancelled - Patient discharged Performed By: #### L 100.0100, L500.2500 ####[facility] [address] [place], [address] GAP Normal 5-15 [facility] Comment on above: Result Comment: Canc elled via OM: Order cancelled - Patient discharged Performed By: #### L 100.0100, L500.2500 ####[facility] [address] [place], [address] GLU Normal 74-106 [facility] Comment on above: Result Comment: Canc elled via OM: Order cancelled - Patient discharged Performed By: #### L 100.0100, L500.2500 ####[facility] [address] [place], [address] Potassium Normal 3.5-5.1 [facility] Comment on above: Result Comment: Canc elled via OM: Order cancelled - Patient discharged Performed By: #### L 100.0100, L500.2500 ####[facility] [address] [place], [address] Basic Metabolic Profile (BMP) Normal 136-145 [facility] Comment on above: Result Comment: Canc elled via OM: Order cancelled - Patient discharged Performed By: #### L 100.0100, L500.2500 ####[facility] [address] [place], [address] CBC W/Diff, Automatedon 12-0 -2023 Absolute Neut Normal 2.0-7.7 [facility] Comment on above: Result Comment: Canc elled via OM: Order cancelled - Patient discharged Performed By: #### L 100.0100, L500.2500 ####[facility] [address] [place], [address] HCT Normal 40-54 [facility] Comment on above: Result Comment: Canc elled via OM: Order cancelled - Patient discharged Performed By: #### L 100.0100, L500.2500 ####[facility] [address] [place], [address] HGB Normal 13.0-16.5 [facility] Comment on above: Result Comment: Canc elled via OM: Order cancelled - Patient discharged Performed By: #### L 100.0100, L500.2500 ####[facility] [address] [place], [address] MCH Normal 27.0-32.0 [facility] Comment on above: Result Comment: Canc elled via OM: Order cancelled - Patient discharged Performed By: #### L 100.0100, L500.2500 ####[facility] [address] [place], [address] MCHC Normal 32-36 [facility] Comment on above: Result Comment: Canc elled via OM: Order cancelled - Patient discharged Performed By: #### L 100.0100, L500.2500 ####[facility] [address] [place], [address] MCV Normal 80-94 [facility] Comment on above: Result Comment: Canc elled via OM: Order cancelled - Patient discharged Performed By: #### L 100.0100, L500.2500 ####[facility] [address] [place], [address] NEUT% Normal 47-70 [facility] Comment on above: Result Comment: Canc elled via OM: Order cancelled - Patient discharged Performed By: #### L 100.0100, L500.2500 ####[facility] [address] [place], [address] PLT Normal 150-450 [facility] Comment on above: Result Comment: Canc elled via OM: Order cancelled - Patient discharged Performed By: #### L 100.0100, L500.2500 ####[facility] [address] [place], [address] RBC Normal 4.6-6.2 [facility] Comment on above: Result Comment: Canc elled via OM: Order cancelled - Patient discharged Performed By: #### L 100.0100, L500.2500 ####[facility] [address] [place], [address] RDW CV Normal 11.6-14.6 [facility] Comment on above: Result Comment: Canc elled via OM: Order cancelled - Patient discharged Performed By: #### L 100.0100, L500.2500 ####[facility] [address] [place], [address] RDW SD Normal 35.1-43.9 [facility] Comment on above: Result Comment: Canc elled via OM: Order cancelled - Patient discharged Performed By: #### L 100.0100, L500.2500 ####[facility] [address] [place], [address] WBC Normal 4.4-11.0 [facility] Comment on above: Result Comment: Canc elled via OM: Order cancelled - Patient discharged Performed By: #### L 100.0100, L500.2500 ####[facility] [address] [place], [address] Basic Metabolic Profile (BMP )on 04-01-2024 BUN Normal 7-18 [facility] Comment on above: Result Comment: Canc elled via OM: Order cancelled - Patient discharged Performed By: #### L 500.2500, L100.0100 ####[facility] [address] [place], [address] BUN/CRE Normal 10-20 [facility] Comment on above: Result Comment: Canc elled via OM: Order cancelled - Patient discharged Performed By: #### L 500.2500, L100.0100 ####[facility] [address] [place], [address] CA,Total Normal 8.5-10.1 [facility] Comment on above: Result Comment: Canc elled via OM: Order cancelled - Patient discharged Performed By: #### L 500.2500, L100.0100 ####[facility] [address] [place], [address] CL Normal 98-107 [facility] Comment on above: Result Comment: Canc elled via OM: Order cancelled - Patient discharged Performed By: #### L 500.2500, L100.0100 ####[facility] [address] [place], [address] CO2 Normal 21.0-32.0 [facility] Comment on above: Result Comment: Canc elled via OM: Order cancelled - Patient discharged Performed By: #### L 500.2500, L100.0100 ####[facility] [address] [place], [address] CREAT,SERUM Normal 0.70-1.30 [facility] Comment on above: Result Comment: Canc elled via OM: Order cancelled - Patient discharged Performed By: #### L 500.2500, L100.0100 ####[facility] [address] [place], [address] EST GFR Normal >60 [facility] Comment on above: Result Comment: Canc elled via OM: Order cancelled - Patient discharged Performed By: #### L 500.2500, L100.0100 ####[facility] [address] [place], [address] EST GFR - AA Normal >60 [facility] Comment on above: Result Comment: Canc elled via OM: Order cancelled - Patient discharged Performed By: #### L 500.2500, L100.0100 ####[facility] [address] [place], [address] GAP Normal 5-15 [facility] Comment on above: Result Comment: Canc elled via OM: Order cancelled - Patient discharged Performed By: #### L 500.2500, L100.0100 ####[facility] [address] [place], [address] GLU Normal 74-106 [facility] Comment on above: Result Comment: Canc elled via OM: Order cancelled - Patient discharged Performed By: #### L 500.2500, L100.0100 ####[facility] [address] [place], [address] Potassium Normal 3.5-5.1 [facility] Comment on above: Result Comment: Canc elled via OM: Order cancelled - Patient discharged Performed By: #### L 500.2500, L100.0100 ####[facility] [address] [place], [address] Basic Metabolic Profile (BMP) Normal 136-145 [facility] Comment on above: Result Comment: Canc elled via OM: Order cancelled - Patient discharged Performed By: #### L 500.2500, L100.0100 ####[facility] [address] [place], [address] CBC W/Diff, Automatedon 12-0 -2023 Absolute Neut Normal 2.0-7.7 [facility] Comment on above: Result Comment: Canc elled via OM: Order cancelled - Patient discharged Performed By: #### L 500.2500, L100.0100 ####[facility] [address] [place], [address] HCT Normal 40-54 [facility] Comment on above: Result Comment: Canc elled via OM: Order cancelled - Patient discharged Performed By: #### L 500.2500, L100.0100 ####[facility] [address] [place], [address] HGB Normal 13.0-16.5 [facility] Comment on above: Result Comment: Canc elled via OM: Order cancelled - Patient discharged Performed By: #### L 500.2500, L100.0100 ####[facility] [address] [place], [address] MCH Normal 27.0-32.0 [facility] Comment on above: Result Comment: Canc elled via OM: Order cancelled - Patient discharged Performed By: #### L 500.2500, L100.0100 ####[facility] [address] [place], [address] MCHC Normal 32-36 [facility] Comment on above: Result Comment: Canc elled via OM: Order cancelled - Patient discharged Performed By: #### L 500.2500, L100.0100 ####[facility] [address] [place], [address] MCV Normal 80-94 [facility] Comment on above: Result Comment: Canc elled via OM: Order cancelled - Patient discharged Performed By: #### L 500.2500, L100.0100 ####[facility] [address] [place], [address] NEUT% Normal 47-70 [facility] Comment on above: Result Comment: Canc elled via OM: Order cancelled - Patient discharged Performed By: #### L 500.2500, L100.0100 ####[facility] [address] [place], [address] PLT Normal 150-450 [facility] Comment on above: Result Comment: Canc elled via OM: Order cancelled - Patient discharged Performed By: #### L 500.2500, L100.0100 ####[facility] [address] [place], [address] RBC Normal 4.6-6.2 [facility] Comment on above: Result Comment: Canc elled via OM: Order cancelled - Patient discharged Performed By: #### L 500.2500, L100.0100 ####[facility] [address] [place], [address] RDW CV Normal 11.6-14.6 [facility] Comment on above: Result Comment: Canc elled via OM: Order cancelled - Patient discharged Performed By: #### L 500.2500, L100.0100 ####[facility] [address] [place], [address] RDW SD Normal 35.1-43.9 [facility] Comment on above: Result Comment: Canc elled via OM: Order cancelled - Patient discharged Performed By: #### L 500.2500, L100.0100 ####[facility] [address] [place], [address] WBC Normal 4.4-11.0 [facility] Comment on above: Result Comment: Canc elled via OM: Order cancelled - Patient discharged Performed By: #### L 500.2500, L100.0100 ####[facility] [address] [place], [address] CNOVon 04-01-2024 CNOV Office Visit (FAMPWS ) -- IGLESIAFRAN Tarah ([id number]) 1945 M Date Time Provider Department 04/01/24 12:00 PM MARILIA OROZCO During your visit today, we recorded the following information about you: Temperature Pulse Respiration Blood pressure 97.9 degrees 59/minute 18/minute 138/82 Weight 128.6 kg Marilia Orozco APRN.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 04/01/2024 2:48 PM Signed 04/01/2024 Patient presents with: Hospital F/U: [facility] 03/26-03/28 for pancreatitis SUBJECTIVE: This is a 78 year old that is here today for Above Complaints. HOSPITAL/ER FOLLOW UP: Reason for visit: abdominal pain, nausea, vomiting and dizziness Which facility: [facility] Date of visit: 03/26/2024-03/28/2024 Diagnosis: choledocholithiasis Testing [...] Readmission Risk Score: n/a Patient's zip code: [address] Is zip code within program service area: No Patient meets program referral criteria: No Patient does not qualify for High Risk TCM Home Visit program due to: Patient's zip code is not located within program service area Readmission Risk Score does not meet criteria Disposition: Patient does not qualify for HRTIC, will provide TCM outreach follow-up for 30-days Patient Source: Mgn-ai-Abxmngx (OON) Discharge Outreach Summary: Pt reports he is feeling well, caught up on sleep last night. States eating and drinking OK . No additional episodes of nausea, vomiting or abdominal pain , fevers, chills since dc. Started Omnicef as rx. Pt reports LVM for f/u with Dr. Nikky DSOUZA and has f/u with PCP office 04/01 Patient discharged from [facility] Discharge date: 03/28/24 Admitted for: Abdominal pain Readmission Risk: n/a Value-Based Contract: A[employer] Contact: Contact made with patient: Yes Hi, my name is Mitchel Walters RN and I am calling from the [facility] on behalf of your Primary Care Provider, Agnes Del Rosario MD. I understand you were recently in [...] like to speak with a social work produce production team member to help give you support for any [...] I will send your request to a district director who will contact and assist you with that appointment. This will give you an opportunity to ask any questions or address any concerns you may have with your PCP. Inform the patient that if they have any questions or concerns prior to that appointment, t (more content not included)... Normal [facility] Basic Metabolic Profile (BMP )on 03-31-2024 BUN Normal 7-18 [facility] Comment on above: Result Comment: Canc elled via OM: Order cancelled - Patient discharged Performed By: #### L 100.0100, L500.2500 ####[facility] [address] [place], [address] BUN/CRE Normal 10-20 [facility] Comment on above: Result Comment: Canc elled via OM: Order cancelled - Patient discharged Performed By: #### L 100.0100, L500.2500 ####[facility] [address] [place], [address] CA,Total Normal 8.5-10.1 [facility] Comment on above: Result Comment: Canc elled via OM: Order cancelled - Patient discharged Performed By: #### L 100.0100, L500.2500 ####[facility] [address] [place], [address] CL Normal 98-107 [facility] Comment on above: Result Comment: Canc elled via OM: Order cancelled - Patient discharged Performed By: #### L 100.0100, L500.2500 ####[facility] [address] [place], [address] CO2 Normal 21.0-32.0 [facility] Comment on above: Result Comment: Canc elled via OM: Order cancelled - Patient discharged Performed By: #### L 100.0100, L500.2500 ####[facility] [address] [place], [address] CREAT,SERUM Normal 0.70-1.30 [facility] Comment on above: Result Comment: Canc elled via OM: Order cancelled - Patient discharged Performed By: #### L 100.0100, L500.2500 ####[facility] [address] [place], [address] EST GFR Normal >60 [facility] Comment on above: Result Comment: Canc elled via OM: Order cancelled - Patient discharged Performed By: #### L 100.0100, L500.2500 ####[facility] [address] [place], [address] EST GFR - AA Normal >60 [facility] Comment on above: Result Comment: Canc elled via OM: Order cancelled - Patient discharged Performed By: #### L 100.0100, L500.2500 ####[facility] [address] [place], [address] GAP Normal 5-15 [facility] Comment on above: Result Comment: Canc elled via OM: Order cancelled - Patient discharged Performed By: #### L 100.0100, L500.2500 ####[facility] [address] [place], [address] GLU Normal 74-106 [facility] Comment on above: Result Comment: Canc elled via OM: Order cancelled - Patient discharged Performed By: #### L 100.0100, L500.2500 ####[facility] [address] [place], [address] Potassium Normal 3.5-5.1 [facility] Comment on above: Result Comment: Canc elled via OM: Order cancelled - Patient discharged Performed By: #### L 100.0100, L500.2500 ####[facility] [address] [place], [address] Basic Metabolic Profile (BMP) Normal 136-145 [facility] Comment on above: Result Comment: Canc elled via OM: Order cancelled - Patient discharged Performed By: #### L 100.0100, L500.2500 ####[facility] [address] [place], [address] CBC W/Diff, Automatedon 12-0 Absolute Neut Normal 2.0-7.7 [facility] Comment on above: Result Comment: Canc elled via OM: Order cancelled - Patient discharged Performed By: #### L 100.0100, L500.2500 ####[facility] [address] [place], [address] HCT Normal 40-54 [facility] Comment on above: Result Comment: Canc elled via OM: Order cancelled - Patient discharged Performed By: #### L 100.0100, L500.2500 ####[facility] [address] [place], [address] HGB Normal 13.0-16.5 [facility] Comment on above: Result Comment: Canc elled via OM: Order cancelled - Patient discharged Performed By: #### L 100.0100, L500.2500 ####[facility] [address] [place], [address] MCH Normal 27.0-32.0 [facility] Comment on above: Result Comment: Canc elled via OM: Order cancelled - Patient discharged Performed By: #### L 100.0100, L500.2500 ####[facility] [address] [place], [address] MCHC Normal 32-36 [facility] Comment on above: Result Comment: Canc elled via OM: Order cancelled - Patient discharged Performed By: #### L 100.0100, L500.2500 ####[facility] [address] [place], [address] MCV Normal 80-94 [facility] Comment on above: Result Comment: Canc elled via OM: Order cancelled - Patient discharged Performed By: #### L 100.0100, L500.2500 ####[facility] [address] [place], [address] NEUT% Normal 47-70 [facility] Comment on above: Result Comment: Canc elled via OM: Order cancelled - Patient discharged Performed By: #### L 100.0100, L500.2500 ####[facility] [address] [place], [address] PLT Normal 150-450 [facility] Comment on above: Result Comment: Canc elled via OM: Order cancelled - Patient discharged Performed By: #### L 100.0100, L500.2500 ####[facility] [address] [place], [address] RBC Normal 4.6-6.2 [facility] Comment on above: Result Comment: Canc elled via OM: Order cancelled - Patient discharged Performed By: #### L 100.0100, L500.2500 ####[facility] [address] [place], [address] RDW CV Normal 11.6-14.6 [facility] Comment on above: Result Comment: Canc elled via OM: Order cancelled - Patient discharged Performed By: #### L 100.0100, L500.2500 ####[facility] [address] [place], [address] RDW SD Normal 35.1-43.9 [facility] Comment on above: Result Comment: Canc elled via OM: Order cancelled - Patient discharged Performed By: #### L 100.0100, L500.2500 ####[facility] [address] [place], [address] WBC Normal 4.4-11.0 [facility] Comment on above: Result Comment: Canc elled via OM: Order cancelled - Patient discharged Performed By: #### L 100.0100, L500.2500 ####[facility] [address] [place], [address] Basic Metabolic Profile (BMP )on 03-30-2024 BUN Normal 7-18 [facility] Comment on above: Result Comment: Canc elled via OM: Order cancelled - Patient discharged Performed By: #### L 500.2500, L100.0100 ####[facility] [address] [place], [address] BUN/CRE Normal 10-20 [facility] Comment on above: Result Comment: Canc elled via OM: Order cancelled - Patient discharged Performed By: #### L 500.2500, L100.0100 ####[facility] [address] [place], [address] CA,Total Normal 8.5-10.1 [facility] Comment on above: Result Comment: Canc elled via OM: Order cancelled - Patient discharged Performed By: #### L 500.2500, L100.0100 ####[facility] [address] [place], [address] CL Normal 98-107 [facility] Comment on above: Result Comment: Canc elled via OM: Order cancelled - Patient discharged Performed By: #### L 500.2500, L100.0100 ####[facility] [address] [place], [address] CO2 Normal 21.0-32.0 [facility] Comment on above: Result Comment: Canc elled via OM: Order cancelled - Patient discharged Performed By: #### L 500.2500, L100.0100 ####[facility] [address] [place], [address] CREAT,SERUM Normal 0.70-1.30 [facility] Comment on above: Result Comment: Canc elled via OM: Order cancelled - Patient discharged Performed By: #### L 500.2500, L100.0100 ####[facility] [address] [place], [address] EST GFR Normal >60 [facility] Comment on above: Result Comment: Canc elled via OM: Order cancelled - Patient discharged Performed By: #### L 500.2500, L100.0100 ####[facility] [address] [place], [address] EST GFR - AA Normal >60 [facility] Comment on above: Result Comment: Canc elled via OM: Order cancelled - Patient discharged Performed By: #### L 500.2500, L100.0100 ####[facility] [address] [place], [address] GAP Normal 5-15 [facility] Comment on above: Result Comment: Canc elled via OM: Order cancelled - Patient discharged Performed By: #### L 500.2500, L100.0100 ####[facility] [address] [place], [address] GLU Normal 74-106 [facility] Comment on above: Result Comment: Canc elled via OM: Order cancelled - Patient discharged Performed By: #### L 500.2500, L100.0100 ####[facility] [address] [place], [address] Potassium Normal 3.5-5.1 [facility] Comment on above: Result Comment: Canc elled via OM: Order cancelled - Patient discharged Performed By: #### L 500.2500, L100.0100 ####[facility] [address] [place], [address] Basic Metabolic Profile (BMP) Normal 136-145 [facility] Comment on above: Result Comment: Canc elled via OM: Order cancelled - Patient discharged Performed By: #### L 500.2500, L100.0100 ####[facility] [address] [place], [address] CBC W/Diff, Automatedon 11-3 0-2023 Absolute Neut Normal 2.0-7.7 [facility] Comment on above: Result Comment: Canc elled via OM: Order cancelled - Patient discharged Performed By: #### L 500.2500, L100.0100 ####[facility] [address] [place], [address] HCT Normal 40-54 [facility] Comment on above: Result Comment: Canc elled via OM: Order cancelled - Patient discharged Performed By: #### L 500.2500, L100.0100 ####[facility] [address] [place], [address] HGB Normal 13.0-16.5 [facility] Comment on above: Result Comment: Canc elled via OM: Order cancelled - Patient discharged Performed By: #### L 500.2500, L100.0100 ####[facility] [address] [place], [address] MCH Normal 27.0-32.0 [facility] Comment on above: Result Comment: Canc elled via OM: Order cancelled - Patient discharged Performed By: #### L 500.2500, L100.0100 ####[facility] [address] [place], [address] MCHC Normal 32-36 [facility] Comment on above: Result Comment: Canc elled via OM: Order cancelled - Patient discharged Performed By: #### L 500.2500, L100.0100 ####[facility] [address] [place], [address] MCV Normal 80-94 [facility] Comment on above: Result Comment: Canc elled via OM: Order cancelled - Patient discharged Performed By: #### L 500.2500, L100.0100 ####[facility] [address] [place], [address] NEUT% Normal 47-70 [facility] Comment on above: Result Comment: Canc elled via OM: Order cancelled - Patient discharged Performed By: #### L 500.2500, L100.0100 ####[facility] [address] [place], [address] PLT Normal 150-450 [facility] Comment on above: Result Comment: Canc elled via OM: Order cancelled - Patient discharged Performed By: #### L 500.2500, L100.0100 ####[facility] [address] [place], [address] RBC Normal 4.6-6.2 [facility] Comment on above: Result Comment: Canc elled via OM: Order cancelled - Patient discharged Performed By: #### L 500.2500, L100.0100 ####[facility] [address] [place], [address] RDW CV Normal 11.6-14.6 [facility] Comment on above: Result Comment: Canc elled via OM: Order cancelled - Patient discharged Performed By: #### L 500.2500, L100.0100 ####[facility] [address] [place], [address] RDW SD Normal 35.1-43.9 [facility] Comment on above: Result Comment: Canc elled via OM: Order cancelled - Patient discharged Performed By: #### L 500.2500, L100.0100 ####[facility] [address] [place], [address] WBC Normal 4.4-11.0 [facility] Comment on above: Result Comment: Canc elled via OM: Order cancelled - Patient discharged Performed By: #### L 500.2500, L100.0100 ####[facility] [address] [place], [address] Basic Metabolic Profile (BMP )on 03-29-2024 BUN Normal 7-18 [facility] Comment on above: Result Comment: Canc elled via OM: Order cancelled - Patient discharged Performed By: #### L 500.2500, L100.0100 ####[facility] [address] [place], [address] BUN/CRE Normal 10-20 [facility] Comment on above: Result Comment: Canc elled via OM: Order cancelled - Patient discharged Performed By: #### L 500.2500, L100.0100 ####[facility] [address] [place], [address] CA,Total Normal 8.5-10.1 [facility] Comment on above: Result Comment: Canc elled via OM: Order cancelled - Patient discharged Performed By: #### L 500.2500, L100.0100 ####[facility] [address] [place], [address] CL Normal 98-107 [facility] Comment on above: Result Comment: Canc elled via OM: Order cancelled - Patient discharged Performed By: #### L 500.2500, L100.0100 ####[facility] [address] [place], [address] CO2 Normal 21.0-32.0 [facility] Comment on above: Result Comment: Canc elled via OM: Order cancelled - Patient discharged Performed By: #### L 500.2500, L100.0100 ####[facility] [address] [place], [address] CREAT,SERUM Normal 0.70-1.30 [facility] Comment on above: Result Comment: Canc elled via OM: Order cancelled - Patient discharged Performed By: #### L 500.2500, L100.0100 ####[facility] [address] [place], [address] EST GFR Normal >60 [facility] Comment on above: Result Comment: Canc elled via OM: Order cancelled - Patient discharged Performed By: #### L 500.2500, L100.0100 ####[facility] [address] [place], [address] EST GFR - AA Normal >60 [facility] Comment on above: Result Comment: Canc elled via OM: Order cancelled - Patient discharged Performed By: #### L 500.2500, L100.0100 ####[facility] [address] [place], [address] GAP Normal 5-15 [facility] Comment on above: Result Comment: Canc elled via OM: Order cancelled - Patient discharged Performed By: #### L 500.2500, L100.0100 ####[facility] [address] [place], [address] GLU Normal 74-106 [facility] Comment on above: Result Comment: Canc elled via OM: Order cancelled - Patient discharged Performed By: #### L 500.2500, L100.0100 ####[facility] [address] [place], [address] Potassium Normal 3.5-5.1 [facility] Comment on above: Result Comment: Canc elled via OM: Order cancelled - Patient discharged Performed By: #### L 500.2500, L100.0100 ####[facility] [address] [place], [address] Basic Metabolic Profile (BMP) Normal 136-145 [facility] Comment on above: Result Comment: Canc elled via OM: Order cancelled - Patient discharged Performed By: #### L 500.2500, L100.0100 ####[facility] [address] [place], [address] CBC W/Diff, Automatedon 11-2 Absolute Neut Normal 2.0-7.7 [facility] Comment on above: Result Comment: Canc elled via OM: Order cancelled - Patient discharged Performed By: #### L 500.2500, L100.0100 ####[facility] [address] [place], [address] HCT Normal 40-54 [facility] Comment on above: Result Comment: Canc elled via OM: Order cancelled - Patient discharged Performed By: #### L 500.2500, L100.0100 ####[facility] [address] [place], [address] HGB Normal 13.0-16.5 [facility] Comment on above: Result Comment: Canc elled via OM: Order cancelled - Patient discharged Performed By: #### L 500.2500, L100.0100 ####[facility] [address] [place], [address] MCH Normal 27.0-32.0 [facility] Comment on above: Result Comment: Canc elled via OM: Order cancelled - Patient discharged Performed By: #### L 500.2500, L100.0100 ####[facility] [address] [place], [address] MCHC Normal 32-36 [facility] Comment on above: Result Comment: Canc elled via OM: Order cancelled - Patient discharged Performed By: #### L 500.2500, L100.0100 ####[facility] [address] [place], [address] MCV Normal 80-94 [facility] Comment on above: Result Comment: Canc elled via OM: Order cancelled - Patient discharged Performed By: #### L 500.2500, L100.0100 ####[facility] [address] [place], [address] NEUT% Normal 47-70 [facility] Comment on above: Result Comment: Canc elled via OM: Order cancelled - Patient discharged Performed By: #### L 500.2500, L100.0100 ####[facility] [address] [place], [address] PLT Normal 150-450 [facility] Comment on above: Result Comment: Canc elled via OM: Order cancelled - Patient discharged Performed By: #### L 500.2500, L100.0100 ####[facility] [address] [place], [address] RBC Normal 4.6-6.2 [facility] Comment on above: Result Comment: Canc elled via OM: Order cancelled - Patient discharged Performed By: #### L 500.2500, L100.0100 ####[facility] [address] [place], [address] RDW CV Normal 11.6-14.6 [facility] Comment on above: Result Comment: Canc elled via OM: Order cancelled - Patient discharged Performed By: #### L 500.2500, L100.0100 ####[facility] [address] [place], [address] RDW SD Normal 35.1-43.9 [facility] Comment on above: Result Comment: Canc elled via OM: Order cancelled - Patient discharged Performed By: #### L 500.2500, L100.0100 ####[facility] [address] [place], [address] WBC Normal 4.4-11.0 [facility] Comment on above: Result Comment: Canc elled via OM: Order cancelled - Patient discharged Performed By: #### L 500.2500, L100.0100 ####[facility] [address] [place], [address] Absolute neutrophil countOrd ered By: Altagracia Lo on 03-28-2024 Neutrophils (Bld) [#/Vol] 8.8 10*3/uL High 2.0-7.7 [facility] Basic Metabolic Profile (BMP )on 03-28-2024 BUN/CRE 16.3 RATIO Normal 10-20 [facility] Comment on above: Performed By: #### L 100.0100, L500.2500 ####[facility] [address] [place], [address] CA,Total 8.5 mg/dL Normal 8.5-10.1 [facility] Comment on above: Performed By: #### L 100.0100, L500.2500 ####[facility] [address] [place], [address] Chloride [Moles/Vol] 106 mmol/L Normal 98-107 [facility] Comment on above: Performed By: #### L 100.0100, L500.2500 ####[facility] [address] [place], [address] CO2 [Moles/Vol] 25.0 mmol/L Normal 21.0-32.0 [facility] Comment on above: Performed By: #### L 100.0100, L500.2500 ####[facility] [address] [place], [address] Creatinine [Mass/Vol] 1.47 mg/dL High 0.70-1.[address] [facility] Comment on above: Result Comment: The validity of the calculated GFR GFRAA in patients over70 years has not been determined. Clinical correlation isessential. Performed By: #### L 100.0100, L500.2500 ####[facility] [address] [place], [address] ECRCL 55.28 ml/min Normal [facility] Comment on above: Performed By: #### L 100.0100, L500.2500 ####[facility] [address] [place], [address] EST GFR - AA 59 mL/min Low >60 [facility] Comment on above: Result Comment: Afri can [place] GFR Calc Performed By: #### L 100.0100, L500.2500 ####[facility] [address] [place], [address] GAP 7 Normal 5-15 [facility] Comment on above: Performed By: #### L 100.0100, L500.2500 ####[facility] [address] [place], [address] GFR/1.73 sq M.predicted among non-blacks MDRD (S/P/Bld) [Vol rate/Area] 49 mL/min/{1.73_m2} Low >60 [facility] Comment on above: Result Comment: Non- GFR Calc Performed By: #### L 100.0100, L500.2500 ####[facility] [address] [place], [address] Glucose [Mass/Vol] 142 mg/dL High 74-106 [facility] Comment on above: Result Comment: Fast ing Glucose result greater than or equal to 126 mg/dLsuggests DIABETES MELLITUS per A.D.A. criteria. Performed By: #### L 100.0100, L500.2500 ####[facility] [address] [place], [address] Potassium [Moles/Vol] 4.1 mmol/L Normal 3.5-5.[address] [facility] Comment on above: Performed By: #### L 100.0100, L500.2500 ####[facility] [address] [place], [address] Sodium [Moles/Vol] 138 mmol/L Normal 136-145 [facility] Comment on above: Performed By: #### L 100.0100, L500.2500 ####[facility] [address] [place], [address] Urea nitrogen [Mass/Vol] 24 mg/dL High 7-18 [facility] Comment on above: Performed By: #### L 100.0100, L500.2500 ####[facility] [address] [place], [address] Basophil percentageOrdered B y: Altagracia Lo on 03-28-2024 Basophils/100 WBC (Bld) 0.1 % 0-1 [facility] Blood urea nitrogen (BUN)/cr eatinine ratioOrdered By: Altagracia Lo on 03-28-2024 Urea nitrogen/Creatinine [Mass ratio] 16.3 mg/mg - [facility] CBC W/Diff, Automatedon 03-02 Absolute Lymph 1.08 X10 3/uL Normal 0.83-4.51 [facility] Comment on above: Performed By: #### L 100.0100, L500.2500 ####[facility] [address] [place], [address] Absolute Neut 8.8 X10 3/uL High 2.0-7.7 [facility] Comment on above: Performed By: #### L 100.0100, L500.2500 ####[facility] [address] [place], [address] Basophils/100 WBC (Bld) 0.1 % Normal 0-1 [facility] Comment on above: Performed By: #### L 100.0100, L500.2500 ####[facility] [address] [place], [address] Eosinophils/100 WBC (Bld) 0.0 % Normal 0-5 [facility] Comment on above: Performed By: #### L 100.0100, L500.2500 ####[facility] [address] [place], [address] Erythrocyte distribution width (RBC) [Ratio] 13.4 % Normal 11.6-14.6 [facility] Comment on above: Performed By: #### L 100.0100, L500.2500 ####[facility] [address] [place], [address] Hematocrit (Bld) [Volume fraction] 39.3 % Low 40-54 [facility] Comment on above: Performed By: #### L 100.0100, L500.2500 ####[facility] [address] [place], [address] Hemoglobin (Bld) [Mass/Vol] 13.3 g/dL Normal 13.0-16.5 [facility] Comment on above: Performed By: #### L 100.0100, L500.2500 ####[facility] [address] [place], [address] IG% 0.600 Normal 0.0-0.9 [facility] Comment on above: Result Comment: IG% - Immature Granulocytes (promyelocytes, myelocytes andmetamyelocytes) > 1% indicates that a LEFT SHIFT is Present. Performed By: #### L 100.0100, L500.2500 ####[facility] [address] [place], [address] Lymphocytes/100 WBC (Bld) 10.3 % Low 19-41 [facility] [facility] Comment on above: Performed By: #### L 100.0100, L500.2500 ####[facility] [address] [place], [address] MCH (RBC) [Entitic mass] 31.7 pg Normal 27.0-32.0 [facility] Comment on above: Performed By: #### L 100.0100, L500.2500 ####[facility] [address] [place], [address] MCHC (RBC) [Mass/Vol] 33.8 g/dL Normal 32-[address] [facility] Comment on above: Performed By: #### L 100.0100, L500.2500 ####[facility] [address] [place], [address] MCV (RBC) [Entitic vol] 93.6 fL Normal 80-94 [facility] Comment on above: Performed By: #### L 100.0100, L500.2500 ####[facility] [address] [place], [address] Monocytes/100 WBC (Bld) 5.2 % Normal 0-10 [facility] Comment on above: Performed By: #### L 100.0100, L500.2500 ####[facility] [address] [place], [address] Neutrophils/100 WBC (Bld) 83.8 % High 47-70 [facility] Comment on above: Performed By: #### L 100.0100, L500.2500 ####[facility] [address] [place], [address] Nucleated RBC (Bld) [#/Vol] 0 10*3/uL Normal 0-5 [facility] Comment on above: Performed By: #### L 100.0100, L500.2500 ####[facility] [address] [place], [address] Platelet mean volume (Bld) [Entitic vol] 10.1 fL Normal 6.2-12.0 [facility] Comment on above: Performed By: #### L 100.0100, L500.2500 ####[facility] [address] [place], [address] Platelets (Bld) [#/Vol] 210 10*3/uL Normal 150-450 [facility] Comment on above: Performed By: #### L 100.0100, L500.2500 ####[facility] [address] [place], [address] RBC (Bld) [#/Vol] 4.20 10*6/uL Low 4.6-6.2 [facility] Comment on above: Performed By: #### L 100.0100, L500.2500 ####[facility] [address] [place], [address] RDW SD 45.4 fl High 35.1-43.9 [facility] Comment on above: Performed By: #### L 100.0100, L500.2500 ####[facility] [address] [place], [address] WBC (Bld) [#/Vol] 10.5 10*3/uL Normal 4.4-11.0 [facility] Comment on above: Performed By: #### L 100.0100, L500.2500 ####[facility] [address] [place], [place], [address] Carbohydrate AG 19-9on 03-28 CA 19-9 < 2 Normal 0-35 [facility] Comment on above: Result Comment: [employer] Electrochemiluminescence Immunoassay(ECLIA)Values obtained with different assay methods or kits cannotbe used interchangeably. Results cannot be interpreted asabsolute evidence of the presence or absence of malignantdisease.Performed at: [place] [id number] Director: Donell Erazo PhD, Phone: [phone] Performed By: #### L 3107.5026 ####[facility] [address] [place], [place], [address] Carbon dioxide measurementOr dered By: Altagracia Lo on 03-28-2024 CO2 [Moles/Vol] 25.0 mmol/L 21.0-32.0 [facility] Chloride measurementOrdered By: Altagracia Lo on 03-28-2024 Chloride [Moles/Vol] 106 mmol/L 98-107 [facility] Consultation - Surgicalon Consultation - Surgical Normal [facility] Discharge Instructionon 03-02 Discharge Instruction Normal [facility] Eosinophil percentageOrdered By: Altagracia Lo on 03-28-2024 Eosinophils/100 WBC (Bld) 0.0 % 0-5 [facility] Erythrocyte distribution wid th ratioOrdered By: Altagracia Lo on 03-28-2024 Erythrocyte distribution width (RBC) [Ratio] 13.4 % 11.6-14.6 [facility] Erythrocyte distribution wid th standard deviationOrdered By: Altagracia Lo on 03-28-2024 Erythrocyte distribution width (RBC) [Entitic vol] 45.4 fL High 35.1-43.9 [facility] Estimated glomerular filtrat ion rate (GFR) AmericanOrdered By: Altagracia Lo on 03-28-2024 Estimated GFR (MDRD) Amer 59 mL/min Low >60 [facility] Comment on above: GFR Calc Estimation of creatinine edgardo aranceOrdered By: Altagracia Lo on 03-28-2024 Estimated Creatinine Clearance Calc 55.28 ml/min [facility] Glomerular filtration rate ( GFR) estimationOrdered By: Altagracia Lo on 03-28-2024 Estimated GFR (MDRD) Non-Af Amer 49 mL/min Low >60 [facility] Comment on above: Non- GFR Calc Glucose measurementOrdered B y: Altagracia Lo on 03-28-2024 Glucose [Mass/Vol] 142 mg/dL High 74-106 [facility] Comment on above: Fasting Glucose resu lt greater than or equal to 126 mg/dL suggests DIABETES MELLITUS per A.D.A. criteria. Hematocrit Auto (Bld) [Volum e fraction]Ordered By: Altagracia Lo on 03-28-2024 Hematocrit (Bld) [Volume fraction] 39.3 % Low 40-54 [facility] Hemoglobin measurementOrdere d By: Altagracia Lo on 03-28-2024 Hemoglobin (Bld) [Mass/Vol] 13.3 g/dL 13.0-16.5 [facility] Immature granulocytes/100 WB C Auto (Bld)Ordered By: Altagracia Lo on 03-28-2024 Immature granulocytes/100 WBC (Bld) 0.600 % 0.0-0.9 [facility] Comment on above: IG% - Immature Granu locytes (promyelocytes, myelocytes and metamyelocytes) > 1% indicates that a LEFT SHIFT is Present. Lymphocytes Auto (Unsp spec) [#/Vol]Ordered By: Altagracia Lo on 03-28-2024 Lymphocytes (Bld) [#/Vol] 1.08 10*3/uL 0.83-4.51 [facility] Lymphocytes/100 WBC Auto (Un sp spec)Ordered By: Altagracia Lo on 03-28-2024 Lymphocytes/100 WBC (Bld) 10.3 % Low 19-41 [facility] MCV (mean corpuscular volume ) determinationOrdered By: Altagracia Lo on 03-28-2024 MCV (RBC) [Entitic vol] 93.6 fL 80-94 [facility] Mean corpuscular hemoglobin (MCH) determinationOrdered By: Altagracia Lo on 03-28-2024 MCH (RBC) [Entitic mass] 31.7 pg 27.0-32.0 [facility] Mean corpuscular hemoglobin concentration (MCHC) determinationOrdered By: Altagracia Lo on 03-28-2024 MCHC (RBC) [Mass/Vol] 33.8 g/dL 32-[address] [facility] Mean platelet volume determi nationOrdered By: Altagracia Lo on 03-28-2024 Platelet mean volume (Bld) [Entitic vol] 10.1 fL 6.2-12.0 [facility] Monocyte percentageOrdered B y: Altagracia Lo on 03-28-2024 Monocytes/100 WBC (Bld) 5.2 % 0-10 [facility] Neutrophil percentageOrdered By: Altagracia Lo on 03-28-2024 Neutrophils/100 WBC (Bld) 83.8 % High 47-70 [facility] Nucleated red blood cell per centageOrdered By: Altagracia Lo on 03-28-2024 Nucleated RBC/100 WBC (Bld) [Ratio] 0 % 0-5 [facility] Platelet countOrdered By: Na na Wally on 03-28-2024 Platelets (Bld) [#/Vol] 210 10*3/uL 150-450 [facility] Potassium measurementOrdered By: Altagracia Lo on 03-28-2024 Potassium [Moles/Vol] 4.1 mmol/L 3.5-5.[address] [facility] RBC Auto (Bld) [#/Vol]Ordere d By: Altagracia Lo on 03-28-2024 RBC (Bld) [#/Vol] 4.20 10*6/uL Low 4.6-6.2 [facility] Serum anion gap measurementO rdered By: Altagracia Lo on 03-28-2024 Anion gap [Moles/Vol] 7 mmol/L 5-[address] [facility] Serum or plasma calcium anson urement (mass/volume)Ordered By: Altagracia Lo on 03-28-2024 Calcium [Mass/Vol] 8.5 mg/dL 8.5-10.1 [facility] Serum or plasma creatinine m easurement (mass/volume)Ordered By: Altagracia Lo on 03-28-2024 Creatinine [Mass/Vol] 1.47 mg/dL High 0.70-1.[address] [facility] Comment on above: The validity of the calculated GFR & GFRAA in patients over 70 years has not been determined. Clinical correlation is essential. Serum or plasma urea nitroge n measurement (mass/volume)Ordered By: Altagracia Lo on 03-28-2024 Urea nitrogen [Mass/Vol] 24 mg/dL High 7-18 [facility] Sodium levelOrdered By: Altagracia Lo on 03-28-2024 Sodium [Moles/Vol] 138 mmol/L 136-145 [facility] White blood cell (WBC) count Ordered By: Altagracia Lo on 03-28-2024 WBC (Bld) [#/Vol] 10.5 10*3/uL 4.4-11.0 [facility] Albumin to globulin ratioOrd ered By: Andrea Serrano on 03-27-2024 Albumin/Globulin [Mass ratio] 0.8 {ratio} Low 0.9-2.4 [facility] Bilirubin, totalOrdered By: Andrea Serrano on 03-27-2024 Bilirubin [Mass/Vol] 1.50 mg/dL High 0.20-1.00 [facility] Comment on above: For patients on eltr ombopag therapy, use of Dimension [place] TBIL is not recommended. CA 19-9 agOrdered By: Vaishali Sher on 03-27-2024 CA 19-9 Antigen < 2 U/mL 0-35 [facility] Comment on above: [employer] El ectrochemiluminescence Immunoassay(ECLIA)Values obtained with different assay methods or kits cannotbe used interchangeably. Results cannot be interpreted asabsolute evidence of the presence or absence of malignantdisease.Performed at: [facility] [employer] [id number] Director: Donell Erazo PhD, Phone: [phone] CBC-Complete Blood Cnt No Dahiana borrero 03-27-2024 Erythrocyte distribution width (RBC) [Ratio] 13.8 % Normal 11.6-14.6 [facility] Comment on above: Performed By: #### L 500.4050, L100.0500 ####[facility] [address] [place], [address] Hematocrit (Bld) [Volume fraction] 38.8 % Low 40-54 [facility] Comment on above: Performed By: #### L 500.4050, L100.0500 ####[facility] [address] [place], [address] Hemoglobin (Bld) [Mass/Vol] 12.7 g/dL Low 13.0-16.5 [facility] Comment on above: Performed By: #### L 500.4050, L100.0500 ####[facility] [address] [place], [address] MCH (RBC) [Entitic mass] 31.1 pg Normal 27.0-32.0 [facility] Comment on above: Performed By: #### L 500.4050, L100.0500 ####[facility] [address] [place], [address] MCHC (RBC) [Mass/Vol] 32.7 g/dL Normal 32-[address] [facility] Comment on above: Performed By: #### L 500.4050, L100.0500 ####[facility] [address] [place], [address] MCV (RBC) [Entitic vol] 95.1 fL High 80-94 [facility] Comment on above: Performed By: #### L 500.4050, L100.0500 ####[facility] [address] [place], [address] Platelet mean volume (Bld) [Entitic vol] 9.4 fL Normal 6.2-12.0 [facility] Comment on above: Performed By: #### L 500.4050, L100.0500 ####[facility] [address] [place], [address] Platelets (Bld) [#/Vol] 174 10*3/uL Normal 150-450 [facility] Comment on above: Performed By: #### L 500.4050, L100.0500 ####[facility] [address] [place], [address] RBC (Bld) [#/Vol] 4.08 10*6/uL Low 4.6-6.2 [facility] Comment on above: Performed By: #### L 500.4050, L100.0500 ####[facility] [address] [place], [address] RDW SD 48.2 fl High 35.1-43.9 [facility] Comment on above: Performed By: #### L 500.4050, L100.0500 ####[facility] [address] [place], [address] WBC (Bld) [#/Vol] 9.1 10*3/uL Normal 4.4-11.0 [facility] Comment on above: Performed By: #### L 500.4050, L100.0500 ####[facility] [address] [place], [address] Comprehensive Metabolic [facility] 03-27-2024 Albumin [Mass/Vol] 2.6 g/dL Low 3.2-5.0 [facility] Comment on above: Performed By: #### L 500.4050, L100.0500 ####[facility] [address] [place], [address] Albumin/Globulin [Mass ratio] 0.8 {ratio} Low 0.9-2.4 [facility] Comment on above: Performed By: #### L 500.4050, L100.0500 ####[facility] [address] [place], [address] ALK P 107 U/L Normal 45-117 [facility] Comment on above: Performed By: #### L 500.4050, L100.0500 ####[facility] [address] [place], [address] ALT [Catalytic activity/Vol] 228 U/L High 16-61 [facility] Comment on above: Performed By: #### L 500.4050, L100.0500 ####[facility] [address] [place], [address] AST [Catalytic activity/Vol] 128 U/L High 15-37 [facility] Comment on above: Performed By: #### L 500.4050, L100.0500 ####[facility] [address] [place], [address] Bilirubin [Mass/Vol] 1.50 mg/dL High 0.20-1.00 [facility] Comment on above: Result Comment: For patients on eltrombopag therapy, use of Dimension [place] TBIL is not recommended. Performed By: #### L 500.4050, L100.0500 ####[facility] [address] [place], [address] BUN/CRE 15.0 RATIO Normal 10-20 [facility] Comment on above: Performed By: #### L 500.4050, L100.0500 ####[facility] [address] [place], [address] CA,Total 8.2 mg/dL Low 8.5-10.1 [facility] Comment on above: Performed By: #### L 500.4050, L100.0500 ####[facility] [address] [place], [address] Chloride [Moles/Vol] 107 mmol/L Normal 98-107 [facility] Comment on above: Performed By: #### L 500.4050, L100.0500 ####[facility] [address] [place], [address] CO2 [Moles/Vol] 27.0 mmol/L Normal 21.0-32.0 [facility] Comment on above: Performed By: #### L 500.4050, L100.0500 ####[facility] [address] [place], [address] Creatinine [Mass/Vol] 1.60 mg/dL High 0.70-1.[address] [facility] Comment on above: Result Comment: The validity of the calculated GFR GFRAA in patients over70 years has not been determined. Clinical correlation isessential. Performed By: #### L 500.4050, L100.0500 ####[facility] [address] [place], [address] ECRCL 50.79 ml/min Normal [facility] Comment on above: Performed By: #### L 500.4050, L100.0500 ####[facility] [address] [place], [address] EST GFR - AA 54 mL/min Low >60 [facility] Comment on above: Result Comment: Afri can Zambian GFR Calc Performed By: #### L 500.4050, L100.0500 ####[facility] [address] [place], [address] GAP 5 Normal 5-15 [facility] Comment on above: Performed By: #### L 500.4050, L100.0500 ####[facility] [address] [place], [address] GFR/1.73 sq M.predicted among non-blacks MDRD (S/P/Bld) [Vol rate/Area] 45 mL/min/{1.73_m2} Low >60 [facility] Comment on above: Result Comment: Non- GFR Calc Performed By: #### L 500.4050, L100.0500 ####[facility] [address] [place], [address] Globulin (S) [Mass/Vol] 3.3 g/dL Normal 2.2-4.2 [facility] Comment on above: Performed By: #### L 500.4050, L100.0500 ####[facility] [address] [place], [address] Glucose [Mass/Vol] 126 mg/dL High 74-106 [facility] Comment on above: Result Comment: Fast ing Glucose result greater than or equal to 126 mg/dLsuggests DIABETES MELLITUS per A.D.A. criteria. Performed By: #### L 500.4050, L100.0500 ####[facility] [address] [place], [address] Potassium [Moles/Vol] 3.6 mmol/L Normal 3.5-5.[address] [facility] Comment on above: Performed By: #### L 500.4050, L100.0500 ####[facility] [address] [place], [address] Sodium [Moles/Vol] 139 mmol/L Normal 136-145 [facility] Comment on above: Performed By: #### L 500.4050, L100.0500 ####[facility] [address] [place], [address] T PROT 5.9 g/dL Low 6.4-8.2 [facility] Comment on above: Performed By: #### L 500.4050, L100.0500 ####[facility] [address] [place], [address] Urea nitrogen [Mass/Vol] 24 mg/dL High 7-18 [facility] Comment on above: Performed By: #### L 500.4050, L100.0500 ####[facility] [address] [place], [place], [address] ERCP Biliary/Pancreason 03-02 ERCP Biliary/Pancreas Normal [facility] ERCP Reporton 03-27-2024 ERCP Report Normal [facility] Laboratory - Chemistry and C hemistry - challengeOrdered By: Andrea Serrano on 03-27-2024 AST [Catalytic activity/Vol] 128 U/L High 15-37 [facility] MR/POSTOP.ANEon 03-27-2024 MR/POSTOP.ANE Normal [facility] MR/[id number] 03-27-2024 MR/POSTOPAN2 Normal [facility] Magnesiumon 03-27-2024 Magnesium [Mass/Vol] 2.6 mg/dL Normal 1.6-2.6 [facility] Comment on above: Performed By: #### L 501.5200 ####[facility] [address] [place], [place], [address] Magnesium measurementOrdered By: Altagracia Lo on 03-27-2024 Magnesium [Mass/Vol] 2.6 mg/dL 1.6-2.6 [facility] Serum globulin measurementOr dered By: Andrea Serrano on 03-27-2024 Globulin (S) [Mass/Vol] 3.3 g/dL 2.2-4.2 [facility] Serum or plasma alanine wilde otransferase (ALT) measurementOrdered By: Andrea Serrano on 03-27-2024 ALT [Catalytic activity/Vol] 228 U/L High 16-61 [facility] Serum or plasma albumin anson urement (mass/volume)Ordered By: Andrea Serrano on 03-27-2024 Albumin [Mass/Vol] 2.6 g/dL Low 3.2-5.0 [facility] Serum or plasma alkaline rui sphatase measurementOrdered By: Andrea Serrano on 03-27-2024 ALP [Catalytic activity/Vol] 107 U/L 45-117 [facility] Total proteinOrdered By: Marianne Serrano on 11-27-2024 Protein [Mass/Vol] 5.9 g/dL Low 6.4-8.2 [facility] Abdomen/Pelvis W IV Cont ONL Yon 03-26-2024 Abdomen/Pelvis W IV Cont ONLY Normal [facility] Basic Metabolic Profile (BMP )on 03-26-2024 BUN/CRE 14.4 RATIO Normal 10-20 [facility] Comment on above: Performed By: #### L 300.4310, L500.2500, L300.3900, L501.2450, L501.5200, L500.3400, L100.0100 ####[facility] [address] [place], [address] CA,Total 8.9 mg/dL Normal 8.5-10.1 [facility] Comment on above: Performed By: #### L 300.4310, L500.2500, L300.3900, L501.2450, L501.5200, L500.3400, L100.0100 ####[facility] [address] [place], [address] Chloride [Moles/Vol] 104 mmol/L Normal 98-107 [facility] Comment on above: Performed By: #### L 300.4310, L500.2500, L300.3900, L501.2450, L501.5200, L500.3400, L100.0100 ####[facility] [address] [place], [address] CO2 [Moles/Vol] 26.0 mmol/L Normal 21.0-32.0 [facility] Comment on above: Performed By: #### L 300.4310, L500.2500, L300.3900, L501.2450, L501.5200, L500.3400, L100.0100 ####[facility] [address] [place], [address] Creatinine [Mass/Vol] 1.74 mg/dL High 0.70-1.[address] [facility] Comment on above: Result Comment: The validity of the calculated GFR GFRAA in patients over70 years has not been determined. Clinical correlation isessential. Performed By: #### L 300.4310, L500.2500, L300.3900, L501.2450, L501.5200, L500.3400, L100.0100 ####[facility] [address] [place], [place], [address] ECRCL 46.70 ml/min Normal [facility] Comment on above: Performed By: #### L 300.4310, L500.2500, L300.3900, L501.2450, L501.5200, L500.3400, L100.0100 ####[facility] [address] [place], [address] EST GFR - AA 49 mL/min Low >60 [facility] Comment on above: Result Comment: Afri can [place] GFR Calc Performed By: #### L 300.4310, L500.2500, L300.3900, L501.2450, L501.5200, L500.3400, L100.0100 ####[facility] [address] [place], [address] GAP 9 Normal 5-15 [facility] Comment on above: Performed By: #### L 300.4310, L500.2500, L300.3900, L501.2450, L501.5200, L500.3400, L100.0100 ####[facility] [address] [place], [place], [address] GFR/1.73 sq M.predicted among non-blacks MDRD (S/P/Bld) [Vol rate/Area] 40 mL/min/{1.73_m2} Low >60 [facility] Comment on above: Result Comment: Non- GFR Calc Performed By: #### L 300.4310, L500.2500, L300.3900, L501.2450, L501.5200, L500.3400, L100.0100 ####[facility] [address] [place], [address] Glucose [Mass/Vol] 163 mg/dL High 74-106 [facility] Comment on above: Result Comment: Fast ing Glucose result greater than or equal to 126 mg/dLsuggests DIABETES MELLITUS per A.D.A. criteria. Performed By: #### L 300.4310, L500.2500, L300.3900, L501.2450, L501.5200, L500.3400, L100.0100 ####[facility] [address] [place], [address] Potassium [Moles/Vol] 3.7 mmol/L Normal 3.5-5.[address] [facility] Comment on above: Performed By: #### L 300.4310, L500.2500, L300.3900, L501.2450, L501.5200, L500.3400, L100.0100 ####[facility] [address] [place], [address] Sodium [Moles/Vol] 139 mmol/L Normal 136-145 [facility] Comment on above: Performed By: #### L 300.4310, L500.2500, L300.3900, L501.2450, L501.5200, L500.3400, L100.0100 ####[facility] [address] [place], [address] Urea nitrogen [Mass/Vol] 25 mg/dL High 7-18 [facility] Comment on above: Performed By: #### L 300.4310, L500.2500, L300.3900, L501.2450, L501.5200, L500.3400, L100.0100 ####[facility] [address] [place], [address] Bilirubin Test strip Ql (U)O rdered By: Thomas Domínguez on 03-26-2024 Bilirubin Ql (U) Negative Negative [facility] Bilirubin directOrdered By: Thomas Domínguez on 03-26-2024 Bilirubin.direct [Mass/Vol] 2.57 mg/dL High 0.00-0.30 [facility] Comment on above: Performed By: #### L 300.4310, L500.2500, L300.3900, L501.2450, L501.5200, L500.3400, L100.0100 ####[facility] [address] [place], [address] Brain/Head without Contrasto n 03-26-2024 Brain/Head without Contrast Normal [facility] CBC W/Diff, Automatedon 03-02 Absolute Lymph 0.49 X10 3/uL Low 0.83-4.51 [facility] Comment on above: Performed By: #### L 300.4310, L500.2500, L300.3900, L501.2450, L501.5200, L500.3400, L100.0100 ####[facility] [address] [place], [address] Absolute Neut 11.5 X10 3/uL High 2.0-7.7 [facility] Comment on above: Performed By: #### L 300.4310, L500.2500, L300.3900, L501.2450, L501.5200, L500.3400, L100.0100 ####[facility] [address] [place], [address] Basophils/100 WBC (Bld) 0.2 % Normal 0-1 [facility] Comment on above: Performed By: #### L 300.4310, L500.2500, L300.3900, L501.2450, L501.5200, L500.3400, L100.0100 ####[facility] [address] [place], [address] Eosinophils/100 WBC (Bld) 0.1 % Normal 0-5 [facility] Comment on above: Performed By: #### L 300.4310, L500.2500, L300.3900, L501.2450, L501.5200, L500.3400, L100.0100 ####[facility] [address] [place], [address] Erythrocyte distribution width (RBC) [Ratio] 13.8 % Normal 11.6-14.6 [facility] Comment on above: Performed By: #### L 300.4310, L500.2500, L300.3900, L501.2450, L501.5200, L500.3400, L100.0100 ####[facility] [address] [place], [address] Hematocrit (Bld) [Volume fraction] 42.2 % Normal 40-54 [facility] Comment on above: Performed By: #### L 300.4310, L500.2500, L300.3900, L501.2450, L501.5200, L500.3400, L100.0100 ####[facility] [facility] [address] [place], [address] Hemoglobin (Bld) [Mass/Vol] 14.4 g/dL Normal 13.0-16.5 [facility] Comment on above: Performed By: #### L 300.4310, L500.2500, L300.3900, L501.2450, L501.5200, L500.3400, L100.0100 ####[facility] [address] [place], [address] IG% 0.800 Normal 0.0-0.9 [facility] Comment on above: Result Comment: IG% - Immature Granulocytes (promyelocytes, myelocytes andmetamyelocytes) > 1% indicates that a LEFT SHIFT is Present. Performed By: #### L 300.4310, L500.2500, L300.3900, L501.2450, L501.5200, L500.3400, L100.0100 ####[facility] [address] [place], [address] Lymphocytes/100 WBC (Bld) 3.7 % Low 19-41 [facility] Comment on above: Performed By: #### L 300.4310, L500.2500, L300.3900, L501.2450, L501.5200, L500.3400, L100.0100 ####[facility] [address] [place], [address] MCH (RBC) [Entitic mass] 32.1 pg High 27.0-32.0 [facility] Comment on above: Performed By: #### L 300.4310, L500.2500, L300.3900, L501.2450, L501.5200, L500.3400, L100.0100 ####[facility] [address] [place], [address] MCHC (RBC) [Mass/Vol] 34.1 g/dL Normal 32-[address] [facility] Comment on above: Performed By: #### L 300.4310, L500.2500, L300.3900, L501.2450, L501.5200, L500.3400, L100.0100 ####[facility] [address] [place], [address] MCV (RBC) [Entitic vol] 94.0 fL Normal 80-94 [facility] Comment on above: Performed By: #### L 300.4310, L500.2500, L300.3900, L501.2450, L501.5200, L500.3400, L100.0100 ####[facility] [address] [place], [address] Monocytes/100 WBC (Bld) 8.7 % Normal 0-10 [facility] Comment on above: Performed By: #### L 300.4310, L500.2500, L300.3900, L501.2450, L501.5200, L500.3400, L100.0100 ####[facility] [address] [place], [address] Neutrophils/100 WBC (Bld) 86.5 % High 47-70 [facility] Comment on above: Performed By: #### L 300.4310, L500.2500, L300.3900, L501.2450, L501.5200, L500.3400, L100.0100 ####[facility] [address] [place], [address] Nucleated RBC (Bld) [#/Vol] 0 10*3/uL Normal 0-5 [facility] Comment on above: Performed By: #### L 300.4310, L500.2500, L300.3900, L501.2450, L501.5200, L500.3400, L100.0100 ####[facility] [address] [place], [address] Platelet mean volume (Bld) [Entitic vol] 9.7 fL Normal 6.2-12.0 [facility] Comment on above: Performed By: #### L 300.4310, L500.2500, L300.3900, L501.2450, L501.5200, L500.3400, L100.0100 ####[facility] [address] [place], [address] Platelets (Bld) [#/Vol] 198 10*3/uL Normal 150-450 [facility] Comment on above: Performed By: #### L 300.4310, L500.2500, L300.3900, L501.2450, L501.5200, L500.3400, L100.0100 ####[facility] [address] [place], [address] RBC (Bld) [#/Vol] 4.49 10*6/uL Low 4.6-6.2 [facility] Comment on above: Performed By: #### L 300.4310, L500.2500, L300.3900, L501.2450, L501.5200, L500.3400, L100.0100 ####[facility] [address] [place], [place], [phone](831) RDW SD 47.4 fl High 35.1-43.9 [facility] Comment on above: Performed By: #### L 300.4310, L500.2500, L300.3900, L501.2450, L501.5200, L500.3400, L100.0100 ####[facility] [address] [place], [place], [id number] WBC (Bld) [#/Vol] 13.3 10*3/uL High 4.4-11.0 [facility] Comment on above: Performed By: #### L 300.4310, L500.2500, L300.3900, L501.2450, L501.5200, L500.3400, L100.0100 ####[facility] [address] [place], [place], [phone] Emergency Department Summary on 03-26-2024 Emergency Department Summary Normal [facility] Epithelial cells.squamous LM Ql (Urine sed)Ordered By: Thomas Domínguez on 03-26-2024 Epithelial cells.squamous LM.HPF (Urine sed) [#/Area] 0 /[HPF] 0-5 [facility] Gallbladderon 03-26-2024 Gallbladder Normal [facility] Glucose Ql (U)Ordered By: Peace Domínguez on 03-26-2024 Urine Glucose (UA) Normal mg/dl Normal [facility] H AND P Exam - Hospitaliston 03-26-2024 H&P Exam - Hospitalist Normal [facility] International normalized rat io (INR) calculationOrdered By: Thomas Domínguez on 03-26-2024 INR Coag (Bld) [Relative time] 1.1 {INR} [facility] Ketones Test strip Ql (U)Ord ered By: Thomas Domínguez on 03-26-2024 Ketones Ql (U) 5 mg/dl High Negative [facility] Lipase measurementOrdered By : Thomas Domínguez on 03-26-2024 Lipase [Catalytic activity/Vol] U/L High 13-75 [facility] Comment on above: Please note:LIPASE r evised [...] 300.4310, L500.2500, L300.3900, L501.2450, L501.5200, L500.3400, L100.0100 ####[facility] [address] [place], [place], [phone] Liver Profileon 03-26-2024 Albumin [Mass/Vol] 3.2 g/dL Normal 3.2-5.0 [facility] Comment on above: Performed By: #### L 300.4310, L500.2500, L300.3900, L501.2450, L501.5200, L500.3400, L100.0100 ####[facility] [address] [place], [place], [id number] ALK P 135 U/L High 45-117 [facility] Comment on above: Performed By: #### L 300.4310, L500.2500, L300.3900, L501.2450, L501.5200, L500.3400, L100.0100 ####[facility] [address] [place], [place], [phone] ALT [Catalytic activity/Vol] 344 U/L High 16-61 [facility] Comment on above: Performed By: #### L 300.4310, L500.2500, L300.3900, L501.2450, L501.5200, L500.3400, L100.0100 ####[facility] [address] [place], [address] AST [Catalytic activity/Vol] 287 U/L High 15-37 [facility] Comment on above: Performed By: #### L 300.4310, L500.2500, L300.3900, L501.2450, L501.5200, L500.3400, L100.0100 ####[facility] [address] [place], [address] Bilirubin [Mass/Vol] 4.00 mg/dL High 0.20-1.00 [facility] Comment on above: Result Comment: For patients on eltrombopag therapy, use of Dimension [place] TBIL is not recommended. Performed By: #### L 300.4310, L500.2500, L300.3900, L501.2450, L501.5200, L500.3400, L100.0100 ####[facility] [address] [place], [address] Globulin (S) [Mass/Vol] 3.5 g/dL Normal 2.2-4.2 [facility] Comment on above: Performed By: #### L 300.4310, L500.2500, L300.3900, L501.2450, L501.5200, L500.3400, L100.0100 ####[facility] [address] [place], [address] T PROT 6.7 g/dL Normal 6.4-8.2 [facility] Comment on above: Performed By: #### L 300.4310, L500.2500, L300.3900, L501.2450, L501.5200, L500.3400, L100.0100 ####[facility] [address] [place], [address] MR/CON.PCM.GIon 03-26-2024 MR/CON.PCM.GI Normal [facility] MRCP Abdomen without Contras ton 03-26-2024 MRCP Abdomen without Contrast Normal [facility] Magnesiumon 03-26-2024 Magnesium [Mass/Vol] 1.4 mg/dL Low 1.6-2.6 [facility] Comment on above: Performed By: #### L 300.4310, L500.2500, L300.3900, L501.2450, L501.5200, L500.3400, L100.0100 ####[facility] [address] [place], [address] Microscopic analysis of urin e for red blood cells (RBC)Ordered By: Thomas Domínguez on 03-26-2024 Urine RBC 5-10 SEEN /hpf 0-5 [facility] Mucus LM Ql (Urine sed)Order ed By: Thomas Domínguez on 03-26-2024 Mucus Ql (Urine sed) 0 SEEN /hpf [facility] Nitrite Test strip Ql (U)Ord ered By: Thomas Domínguez on 03-26-2024 Nitrite Ql (U) Negative Negative [facility] Partial Thromboplast Timeon 03-26-2024 aPTT Coag (Bld) [Time] 25.8 s Normal 24.1-36.2 [facility] Comment on above: Performed By: #### L 300.4310, L500.2500, L300.3900, L501.2450, L501.5200, L500.3400, L100.0100 ####[facility] [address] [place], [place], [phone] Protein Test strip Ql (U)Ord ered By: Thomas Domínguez on 03-26-2024 Protein Ql (U) 15 mg/dl High Negative [facility] Prothrombin Time w/INRon INR Coag (PPP) [Relative time] 1.1 {INR} Normal [facility] Comment on above: Performed By: #### L 300.4310, L500.2500, L300.3900, L501.2450, L501.5200, L500.3400, L100.0100 ####[facility] [address] [place], [address] PT Coag (PPP) [Time] 14.4 s Normal 11.7-14.9 [facility] Comment on above: Performed By: #### L 300.4310, L500.2500, L300.3900, L501.2450, L501.5200, L500.3400, L100.0100 ####[facility] [address] [place], [address] Prothrombin timeOrdered By: Thomas Domínguez on 03-26-2024 PT Coag (PPP) [Time] 14.4 s 11.7-14.9 [facility] Urinalysis, Completeon 03-26 BACTERIA 2+ /hpf Normal None Seen [facility] Comment on above: Order Comment: CLEAN CATCH Performed By: #### L 400.0001 ####[facility] [address] [place], [address] EPI,SQUAMOUS 0-5 SEEN Normal 0-5 [facility] Comment on above: Order Comment: CLEAN CATCH Performed By: #### L 400.0001 ####[facility] [address] [place], [address] RBC 5-10 SEEN Normal 0-5 [facility] Comment on above: Order Comment: CLEAN CATCH Performed By: #### L 400.0001 ####[facility] [address] [place], [address] Mucus Ql (Urine sed) 0 SEEN Normal [facility] Comment on above: Order Comment: CLEAN CATCH Performed By: #### L 400.0001 ####[facility] [address] [place], [address] WBC 0 SEEN Normal 0-5 [facility] Comment on above: Order Comment: CLEAN CATCH Performed By: #### L 400.0001 ####[facility] [address] [place], [address] Urine blood detectionOrdered By: Thomas Domínguez on 03-26-2024 Urine Occult Blood 10 /ul High Negative [facility] Urine clarityOrdered By: Barry Domínguez on 03-26-2024 Clarity (U) Sl. Cloudy Clear [facility] Urine color determinationOrd ered By: Thomas Domínguez on 03-26-2024 Color (U) Yellow Yellow [facility] Urine leukocyte esterase det ection by dipstickOrdered By: Thomas Domínguez on 03-26-2024 Leukocyte esterase Test strip Ql (U) Negative Negative [facility] Urine pHOrdered By: Thomas bryan on 03-26-2024 pH (U) 6.0 [pH] 5.0 - 8.0 [facility] Urine sediment bacteria coun t by microscopy (number/high power field)Ordered By: Thomas Domínguez on 03-26-2024 Bacteria LM.HPF (Urine sed) [#/Area] 2 /[HPF] None Seen [facility] Urine specific gravity measu rementOrdered By: Thomas Domínguez on 03-26-2024 Specific gravity (U) [Rel density] 1.010 1.002-1.03 0 [facility] Urobilinogen Ql (U)Ordered B y: Thomas Domínguez on 03-26-2024 Urobilinogen (U) [Mass/Vol] 4 mg/dL High Normal [facility] White blood cell countOrdere d By: Thomas Domínguez on 03-26-2024 Urine WBC 0 SEEN /hpf 0-5 [facility] aPTT Coag (PPP) [Time]Ordere d By: Thomas Domínguez on 03-26-2024 aPTT Coag (Bld) [Time] 25.8 s 24.1-36.2 [facility] XR CERVICAL 2V AP/LATon 01-30 XR CERVICAL [...] as described, moderate to severe at C6-C7 Software Packager: WILNER Transcribe Date/Time: Mar 01 2024 12:10A Dictated by : CHELSEA CASTILLO MD This examination was interpreted and the report reviewed and electronically signed by: CHELSEA CASTILLO MD on Mar 01 2024 12:12AM EST [id number] Normal [facility] XR SHOULDER 2V AP/TRUE AP LT [...] the greater tuberosity suggests rotator cuff tendinosis. Software Packager: Snapsort Transcribe Date/Time: Mar 01 2024 12:12A Dictated by : CHELSEA CASTILLO MD This examination was interpreted and the report reviewed and electronically signed by: CHELSEA CASTILLO MD on Mar 01 2024 12:18AM EST [id number] Normal [facility] CNOVon 02-14-2024 CNOV Office Visit (FAMPWS ) -- FRAN PAREKH ([id number]) 1945 M Date Time Provider Department 02/14/24 11:40 AM MARILIA OROZCO During your visit today, we recorded the following information about you: Pulse Respiration Blood pressure Weight 60/minute 18/minute 138/84 132.2 kg Marilia Orozco APRN.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 ONSET: Monday afternoon after lifting boxes LOCATION: left shoulder/back/neck DURATION: constant CHARACTERISTICS: oliver AGGRAVATING FEATURES: neck flexion ALLEVIATING FEATURES: tylenol Hurt it playing Soil IQall years ago. Denies past surgeries,extremity numbness, tingling, [...] of skin of nose Dr. Chowdary in [place] Stage 3a chronic kidney disease (HCC) Venous [...] not taking: Reported on 12/19/2023) CPAP AutoPAP [id number]. Mask per preference, tubing, filters, humidity. [employer]. Dx: G47.33. Fax 30 day compliance report to [phone]. CPAP Please provide mask fitting. Pt with [...] red stre (more content not included)... [facility] ([facility] -- FRAN PAREKH ([id number]) 1945 M Date Time Provider Department 02/08/24 PODLOGAR, MARILIA CARDOZA During your visit today, we recorded the following information about you: Sissy Abbott LPN 02/08/2024 10:02 AM Signed Pt calling for an appt to hillary right lower leg cellulitis. Pt states area has improved, only has slight redness AND he would like it recked. Pt reports pain is gone. Pt requesting appt with [employer] Administrator Podlogar. 1st avial with her is 02/14/24, [...] hour before dental procedure. - CPAP AutoPAP [id number]. Mask per preference, tubing, filters, humidity. [employer]. Dx: G47.33. Fax 30 day compliance report to [phone]. - CPAP Please provide mask fitting. Pt [...] 03/25/2009 Open fracture of distal phalangeal tuft [[id number]*08/31/2011 05/09/2014 Internal derangement of right knee [M23.91] [...] 05/15/2023 Ac (more content not included)... 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 PROMINENT PREPATELLAR BURSITIS. MILD OSTEOARTHRITIS. Software Packager: Snapsort Transcribe Date/Time: Jan 26 2024 1:16P Dictated [...] joint effusion. No synovitis. Miniscule mostly collapsed Guiterrez's cyst. OTHER: No other significant abnormality identified. [...] of skin of nose Dr. Chowdary in [place] Stage 3a chronic kidney disease (HCC) Venous [...] Take 1 (more content not included)... Normal [facility] MR Knee - right WO contrasto n 01-27-2024 IMPRESSION: MEDIAL MENISCUS TEAR WITH A COMPONENT DISPLACED/EXTRUDED TOWARDS THE INFEROMEDIAL GUTTER. PROMINENT PREPATELLAR BURSITIS. MILD OSTEOARTHRITIS. Software Packager: PSCMatty Transcribe Date/Time: Jan 26 2024 1:16P Dictated by : CHELSEA CASTILLO MD This examination was interpreted and the report reviewed and electronically signed by: CHELSEA CASTILLO MD on Jan 27 2024 3:42PM [facility] DIVISION OF RADIOLOGY * * *Final [...] Localizer images: Unremarkable. 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 PROMINENT PREPATELLAR BURSITIS. MILD OSTEOARTHRITIS. Software Packager: WILNER Transcribe Date/Time: Jan 26 2024 1:16P Dictated by : CHELSEA CASTILLO MD This examination was interpreted and the report reviewed and electronically signed by: CHELSEA CASTILLO MD on Jan 27 2024 3:42PM EST [facility] MR Knee - right WO contrastO rdered By: [facility] Provider on 01-27-2024 [facility] Basic Metabolic Profile (BMP )on 01-26-2024 BUN/CRE 14.4 RATIO Normal 10-20 [facility] Comment on above: Performed By: #### L 503.6005, L500.2500, L100.0500 ####[facility] [address] [place], [address] CA,Total 9.2 mg/dL Normal 8.5-10.1 [facility] Comment on above: Performed By: #### L 503.6005, L500.2500, L100.0500 ####[facility] [address] [place], [address] Chloride [Moles/Vol] 108 mmol/L High 98-107 [facility] Comment on above: Performed By: #### L 503.6005, L500.2500, L100.0500 ####[facility] [address] [place], [address] CO2 [Moles/Vol] 27.0 mmol/L Normal 21.0-32.0 [facility] Comment on above: Performed By: #### L 503.6005, L500.2500, L100.0500 ####[facility] [address] [place], [address] Creatinine [Mass/Vol] 1.53 mg/dL High 0.70-1.[address] [facility] Comment on above: Result Comment: The validity of the calculated GFR GFRAA in patients over70 years has not been determined. Clinical correlation isessential. Performed By: #### L 503.6005, L500.2500, L100.0500 ####[facility] [address] [place], [address] ECRCL 54.51 ml/min Normal [facility] Comment on above: Performed By: #### L 503.6005, L500.2500, L100.0500 ####[facility] [address] [place], [address] EST GFR - AA 57 mL/min Low >60 [facility] Comment on above: Result Comment: Afri can [place] GFR Calc Performed By: #### L 503.6005, L500.2500, L100.0500 ####[facility] [address] [place], [address] GAP 6 Normal 5-15 [facility] Comment on above: Performed By: #### L 503.6005, L500.2500, L100.0500 ####[facility] [address] [place], [address] GFR/1.73 sq M.predicted among non-blacks MDRD (S/P/Bld) [Vol rate/Area] 47 mL/min/{1.73_m2} Low >60 [facility] Comment on above: Result Comment: Non- GFR Calc Performed By: #### L 503.6005, L500.2500, L100.0500 ####[facility] [address] [place], [address] Glucose [Mass/Vol] 125 mg/dL High 74-106 [facility] Comment on above: Result Comment: Fast ing Glucose result from 100 to 125 mg/dLsuggests IMPAIRED HOMEOSTASIS per A.D.A. criteria. Performed By: #### L 503.6005, L500.2500, L100.0500 ####[facility] [address] [place], [address] Potassium [Moles/Vol] 3.6 mmol/L Normal 3.5-5.[address] [facility] Comment on above: Performed By: #### L 503.6005, L500.2500, L100.0500 ####[facility] [address] [place], [address] Sodium [Moles/Vol] 140 mmol/L Normal 136-145 [facility] Comment on above: Performed By: #### L 503.6005, L500.2500, L100.0500 ####[facility] [address] [place], [address] Urea nitrogen [Mass/Vol] 22 mg/dL High 7-18 [facility] Comment on above: Performed By: #### L 503.6005, L500.2500, L100.0500 ####[facility] [address] [place], [address] CBC-Complete Blood Cnt No Di ffon 01-26-2024 Erythrocyte distribution width (RBC) [Ratio] 13.4 % Normal 11.6-14.6 [facility] Comment on above: Performed By: #### L 503.6005, L500.2500, L100.0500 ####[facility] [address] [place], [address] Hematocrit (Bld) [Volume fraction] 44.4 % Normal 40-54 [facility] Comment on above: Performed By: #### L 503.6005, L500.2500, L100.0500 ####[facility] [address] [place], [address] Hemoglobin (Bld) [Mass/Vol] 14.7 g/dL Normal 13.0-16.5 [facility] Comment on above: Performed By: #### L 503.6005, L500.2500, L100.0500 ####[facility] [address] [place], [address] MCH (RBC) [Entitic mass] 31.5 pg Normal 27.0-32.0 [facility] Comment on above: Performed By: #### L 503.6005, L500.2500, L100.0500 ####[facility] [address] [place], [address] MCHC (RBC) [Mass/Vol] 33.1 g/dL Normal 32-[address] [facility] Comment on above: Performed By: #### L 503.6005, L500.2500, L100.0500 ####[facility] [address] [place], [address] MCV (RBC) [Entitic vol] 95.3 fL High 80-94 [facility] Comment on above: Performed By: #### L 503.6005, L500.2500, L100.0500 ####[facility] [address] [place], [address] Platelet mean volume (Bld) [Entitic vol] 8.7 fL Normal 6.2-12.0 [facility] Comment on above: Performed By: #### L 503.6005, L500.2500, L100.0500 ####[facility] [address] [place], [address] Platelets (Bld) [#/Vol] 282 10*3/uL Normal 150-450 [facility] Comment on above: Performed By: #### L 503.6005, L500.2500, L100.0500 ####[facility] [address] [place], [address] RBC (Bld) [#/Vol] 4.66 10*6/uL Normal 4.6-6.2 [facility] Comment on above: Performed By: #### L 503.6005, L500.2500, L100.0500 ####[facility] [address] [place], [address] RDW SD 47.0 fl High 35.1-43.9 [facility] Comment on above: Performed By: #### L 503.6005, L500.2500, L100.0500 ####[facility] [address] [place], [address] WBC (Bld) [#/Vol] 10.7 10*3/uL Normal 4.4-11.0 [facility] Comment on above: Performed By: #### L 503.6005, L500.2500, L100.0500 ####[facility] [address] [place], [place], [address] Emergency Department Summary on 01-26-2024 Emergency Department Summary Normal [facility] Lactic Acidon 01-26-2024 Lactate [Moles/Vol] 1.8 mmol/L Normal 0.4-1.9 [facility] Comment on above: Order Comment: Y Performed By: #### L 503.6005, L500.2500, L100.0500 ####[facility] [address] 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 PROMINENT PREPATELLAR BURSITIS. MILD OSTEOARTHRITIS. Software Packager: [facility] Transcribe Date/Time: Jan 26 2024 1:16P Dictated by : CHELSEA CASTILLO MD This examination was interpreted and the report reviewed and electronically signed by: CHELSEA CASTILLO MD on Jan 27 2024 3:42PM EST [id number] Normal [facility] CNOVon 01-24-2024 CNOV Office Visit (ALBERTOWS ) -- FRAN PAREKH ([id number]) 1945 M Date Time Provider Department 01/24/24 12:40 PM MARILIA OROZCO During your visit today, we recorded the following information about you: Temperature Pulse Respiration Blood pressure 98.2 degrees 81/minute 16/minute 134/90 Weight 130.1 kg Marilia Orozco APRN.CNP 01/24/2024 1:38 PM Signed 01/24/2024 Patient presents [...] of skin of nose Dr. Chowdary in [place] Stage 3a chronic kidney disease (HCC) Venous [...] not taking: Reported on 12/19/2023) CPAP AutoPAP [id number]. Mask per preference, tubing, filters, humidity. [employer] Supplies. Dx: G47.33. Fax 30 day compliance report to [phone]. CPAP Please provide mask fitting. Pt with [...] LEG. 2 (more content not included)... Normal [facility] CNOVon 01-22-2024 CNOV Office Visit (FAMPWS ) -- FRAN PAREKH ([id number]) 1945 M Date Time Provider Department 01/22/24 11:20 AM [facility] During your visit today, we recorded the following information about you: Temperature Pulse Respiration Blood pressure 97.9 degrees 76/minute 18/minute 124/72 Weight 130.9 kg Agnes Del Rosario MD 01/23/2024 2:52 PM Signed Chief Complaint [...] of skin of nose Dr. Chowdary in [place] Stage 3a chronic kidney disease (HCC) Venous insufficiency Previous Surgical History PAST SURGICAL HISTORY Procedure Laterality Date ARTHRP ACETBLR/PROX FEM PROSTC AGRFT/ALGRFT Right 06/03/2019 Hip replacement, total COLONOSCOPY FLX DX W/COLLJ SPEC WHEN PFRMD 04/21/11 Repeat 10 [id number] LASER GREENLIGHT prostate, [place] NEUROPLASTY AND/TRANSPOS MEDIAN [...] AN EMPTY STOMACH FOR THYROID CPAP AutoPAP [id number]. Mask per preference, tubing, filters, humidity. Lifetime Supplies. Dx: G47.33. Fax 30 day compliance report to [phone]. CPAP Please provide mask fitting. Pt with [...] Take f (more content not included)... Normal [facility] 01-22-2024 [facility] Telephone (FAMWS) -- FRAN PAREKH ([id number]) 1945 M Date Time Provider Department 01/22/24 AGNES DEL ROSARIO [facility] During your visit today, we recorded the following information about you: Cassidy Cantu MA 01/22/2024 10:27 AM Signed ----- Message from Agnes Del Rosario MD sent at 01/22/2024 8:34 AM EDT [...] hour before dental procedure. - CPAP AutoPAP [id number]. Mask per preference, tubing, filters, humidity. Lifetime Supplies. Dx: G47.33. Fax 30 day compliance report to [phone]. - CPAP Please provide mask fitting. Pt [...] 03/25/2009 Open fracture of distal phalangeal tuft [GSW502*08/31/2011 05/09/2014 Internal derangement of right knee [M23.91] [...] vei*10/23/2023 Ac (more content not included)... Normal [facility] CBC W Auto Differential pane l (Bld)on 01-19-2024 Basophils (Bld) [#/Vol] 0.04 10*3/uL [facility] Basophils/100 WBC (Bld) 0.4 % [facility] Differential cell count method Nom (Bld) Auto [facility] Eosinophils (Bld) [#/Vol] 0.20 10*3/uL [facility] Eosinophils/100 WBC (Bld) 1.9 % [facility] Erythrocyte distribution width (RBC) [Ratio] 13.6 % 11.5 - 15.0 % [facility] Hematocrit (Bld) [Volume fraction] 44.2 % 39.0 - 51.0 % [facility] Hemoglobin (Bld) [Mass/Vol] 14.5 g/dL 13.0 - 17.0 g/dL [facility] Immature granulocytes (Bld) [#/Vol] 0.03 10*3/uL [facility] Immature granulocytes/100 WBC (Bld) 0.3 % [facility] Interpretation and review of laboratory results Abnormal [facility] Lymphocytes (Bld) [#/Vol] 2.23 10*3/uL [facility] Lymphocytes/100 WBC (Bld) 21.6 % [facility] MCH (RBC) [Entitic mass] 31.7 pg 26.0 - 34.0 pg [facility] MCHC (RBC) [Mass/Vol] 32.8 g/dL 30.5 - 36.0 g/dL [facility] MCV (RBC) [Entitic vol] 96.7 fL 80.0 - 100.0 fL [facility] Monocytes (Bld) [#/Vol] 1.03 10*3/uL High NINF [facility] Monocytes/100 WBC (Bld) 10.0 % [facility] Neutrophils (Bld) [#/Vol] 6.78 10*3/uL [facility] Neutrophils/100 WBC (Bld) 65.8 % [facility] Nucleated RBC (Bld) [#/Vol] NINF [facility] Nucleated RBC/100 WBC (Bld) [Ratio] 0.0 % /100 WBC [facility] Platelet mean volume (Bld) [Entitic vol] 10.2 fL 9.0 - 12.7 fL [facility] Platelets (Bld) [#/Vol] 255 10*3/uL [facility] RBC (Bld) [#/Vol] 4.57 10*6/uL 4.20 - 6.00 m/uL [facility] WBC (Bld) [#/Vol] 10.31 10*3/uL [facility] Basophils (Bld) [#/Vol] 0.04 10*3/uL Normal <0.11 [facility] Comment on above: Order Comment: Speci men Type: BLOOD SPECIMENOrdering Facility: [facility] Address: [address] [place] [address] Performed By: #### 5 7021-8 ####[facility] LABCLIA [id number] [address] [place] Basophils/100 WBC (Bld) 0.4 % Normal [facility] Comment on above: Order Comment: Speci men Type: BLOOD SPECIMENOrdering Facility: [facility] Address: [address] [place] [address] Performed By: #### 5 7021-8 ####[facility] LABCLIA [id number] [place] [address] [place] Differential cell count method Nom (Bld) Auto Normal [facility] Comment on above: Order Comment: Speci men Type: BLOOD SPECIMENOrdering Facility: [facility] Address: [address] [place] [address] Performed By: #### 5 7021-8 ####[facility] LABCLIA [id number] [place] [address] [place] Eosinophils (Bld) [#/Vol] 0.20 10*3/uL Normal <0.46 [facility] Comment on above: Order Comment: Speci men Type: BLOOD SPECIMENOrdering Facility: [facility] Address: [address] [place] [address] Performed By: #### 5 7021-8 ####[facility] LABCLIA [id number] [place] [address] [place] Eosinophils/100 WBC (Bld) 1.9 % Normal [facility] Comment on above: Order Comment: Speci men Type: BLOOD SPECIMENOrdering Facility: [facility] Address: [address] [place] [address] Performed By: #### 5 7021-8 ####[facility] LABIA [id number] [place] [address] [place] Erythrocyte distribution width (RBC) [Ratio] 13.6 % Normal 11.5-15.0 [facility] Comment on above: Order Comment: Speci men Type: BLOOD SPECIMENOrdering Facility: [facility] Address: [address] [place] [address] Performed By: #### 5 7021-8 ####[facility] LABCLIA [id number] [place] [address] [place] Hematocrit (Bld) [Volume fraction] 44.2 % Normal 39.0-51.0 [facility] Comment on above: Order Comment: Speci men Type: BLOOD SPECIMENOrdering Facility: [facility] Address: [address] [place] [address] Performed By: #### 5 7021-8 ####[facility] LABCLIA [id number] [place] [address] [place] Hemoglobin (Bld) [Mass/Vol] 14.5 g/dL Normal 13.0-17.0 [facility] Comment on above: Order Comment: Speci men Type: BLOOD SPECIMENOrdering Facility: [facility] Address: [address] [place] [address] Performed By: #### 5 7021-8 ####[facility] LABCLIA [id number] [place] [address] [place] Immature granulocytes (Bld) [#/Vol] 0.03 10*3/uL Normal <0.10 [facility] Comment on above: Order Comment: Speci men Type: BLOOD SPECIMENOrdering Facility: [facility] Address: [address] [place] [address] Performed By: #### 5 7021-8 ####[facility] LABCLIA [id number] [place] [address] [place] Immature granulocytes/100 WBC (Bld) 0.3 % Normal [facility] Comment on above: Order Comment: Speci men Type: BLOOD SPECIMENOrdering Facility: [facility] Address: [address] [place] [address] Performed By: #### 5 7021-8 ####[facility] LABCLIA [id number] [place] [address] [place] Lymphocytes (Bld) [#/Vol] 2.23 10*3/uL Normal 1.00-4.00 [facility] Comment on above: Order Comment: Speci men Type: BLOOD SPECIMENOrdering Facility: [facility] Address: [address] [place], [place] [address] Performed By: #### 5 7021-8 ####[facility] LABIA [id number] [place] [address] [place] Lymphocytes/100 WBC (Bld) 21.6 % Normal [facility] Comment on above: Order Comment: Speci men Type: BLOOD SPECIMENOrdering Facility: [facility] Address: [address] [place] [address] Performed By: #### 5 7021-8 ####[facility] LABIA [id number] [place] [address] [place] MCH (RBC) [Entitic mass] 31.7 pg Normal 26.0-34.0 [facility] Comment on above: Order Comment: Speci men Type: BLOOD SPECIMENOrdering Facility: [facility] Address: [address] [place] [address] Performed By: #### 5 7021-8 ####[facility] LABIA [id number] [place] [address] [place] MCHC (RBC) [Mass/Vol] 32.8 g/dL Normal 30.5-36.0 [facility] Comment on above: Order Comment: Speci men Type: BLOOD SPECIMENOrdering Facility: [facility] Address: [address] [place] [address] Performed By: #### 5 7021-8 ####[facility] LABIA [id number] [place] [address] [place] MCV (RBC) [Entitic vol] 96.7 fL Normal 80.0-100.0 [facility] Comment on above: Order Comment: Speci men Type: BLOOD SPECIMENOrdering Facility: [facility] Address: [address] [place] [address] Performed By: #### 5 7021-8 ####[facility] LABIA [id number] [place] [address] [place] Monocytes (Bld) [#/Vol] 1.03 10*3/uL High <0.87 [facility] Comment on above: Order Comment: Speci men Type: BLOOD SPECIMENOrdering Facility: [facility] Address: [address] [place] [address] Performed By: #### 5 7021-8 ####[facility] LABCLIA [id number] [place] [address] [place] Monocytes/100 WBC (Bld) 10.0 % Normal [facility] Comment on above: Order Comment: Speci men Type: BLOOD SPECIMENOrdering Facility: [facility] Address: [address] [place] [address] Performed By: #### 5 7021-8 ####[facility] LABCLIA [id number] [place] [address] [place] Neutrophils (Bld) [#/Vol] 6.78 10*3/uL Normal 1.45-7.50 [facility] Comment on above: Order Comment: Speci men Type: BLOOD SPECIMENOrdering Facility: [facility] Address: [address] [place] [address] Performed By: #### 5 7021-8 ####[facility] LABCLIA [id number] [place] [address] [place] Neutrophils/100 WBC (Bld) 65.8 % Normal [facility] Comment on above: Order Comment: Speci men Type: BLOOD SPECIMENOrdering Facility: [facility] Address: [address] [place] [address] Performed By: #### 5 7021-8 ####[facility] LABCLIA [id number] [place] [address] [place] Nucleated RBC (Bld) [#/Vol] 10*3/uL Normal <0.01 [facility] Comment on above: Order Comment: Speci men Type: BLOOD SPECIMENOrdering Facility: [facility] Address: [address] [place] [address] Performed By: #### 5 7021-8 ####[facility] LABCLIA [id number] [place] [address] [place] Nucleated RBC/100 WBC (Bld) [Ratio] 0.0 /100 WBC Normal [facility] Comment on above: Order Comment: Speci men Type: BLOOD SPECIMENOrdering Facility: [facility] Address: [address] [place] [address] Performed By: #### 5 7021-8 ####[facility] LABIA [id number] [place] [address] [place] Platelet mean volume (Bld) [Entitic vol] 10.2 fL Normal 9.0-12.7 [facility] Comment on above: Order Comment: Speci men Type: BLOOD SPECIMENOrdering Facility: [facility] Address: [address] [place] [address] Performed By: #### 5 7021-8 ####[facility] LABIA [id number] [place] [address] [place] Platelets (Bld) [#/Vol] 255 10*3/uL Normal 150-400 [facility] Comment on above: Order Comment: Speci men Type: BLOOD SPECIMENOrdering Facility: [facility] Address: [address] [place] [address] Performed By: #### 5 7021-8 ####[facility] LABCLIA [id number] [place] [address] [place] RBC (Bld) [#/Vol] 4.57 10*6/uL Normal 4.20-6.00 [facility] Comment on above: Order Comment: Speci men Type: BLOOD SPECIMENOrdering Facility: [facility] Address: [address] [place] [address] Performed By: #### 5 7021-8 ####[facility] LABCLIA [id number] [place] [address] [place] WBC (Bld) [#/Vol] 10.31 10*3/uL Normal 3.70-11.[address] [facility] Comment on above: Order Comment: Speci men Type: BLOOD SPECIMENOrdering Facility: [facility] Address: [address] [place] [address] Performed By: #### 5 7021-8 ####[facility] LABCLIA [id number] [address] [place] CNOVon 01-19-2024 CNOV Office Visit (ALBERTOWS ) -- FRAN PAREKH ([id number]) 1945 M Date Time Provider Department 01/19/24 9:40 AM MARILIA OROZCO During your visit today, we recorded the following information about you: Temperature Pulse Respiration Blood pressure 98 degrees 84/minute 18/minute 132/94 Weight 128 kg Marilia Orozco APRN.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 Chowdary in [place] Stage 3a chronic kidney disease (HCC) Venous [...] not taking: Reported on 12/19/2023) CPAP AutoPAP [id number]. Mask per preference, tubing, filters, humidity. Lifetime Supplies. Dx: G47.33. Fax 30 day compliance report to [phone]. CPAP Please provide mask fitting. Pt with [...] Never done (more content not included)... Normal [facility] DVT LOWER RTon 01-19-2024 US DVT LOWER [...] of unclear etiology. Clinical correlation is recommended. Software Packager: WILNER Transcribe Date/Time: Jan 19 2024 6:56P Dictated by : DANIELLE VILLASENOR MD This examination was interpreted and the report reviewed and electronically signed by: DANIELLE VILLASENOR MD on Jan 19 2024 6:58PM EST [id number] [facility] US Lower extremity vein - [facility] 01-19-2024 IMPRESSION: Negative study for proximal DVT in the right lower extremity. Negative study for calf DVT in the right lower extremity. Negative study for superficial thrombophlebitis in the imaged segments of the right lower extremity. Moderate right lower extremity edema of unclear etiology. Clinical correlation is recommended. Software Packager: WILNER Transcribe Date/Time: Jan 19 2024 6:56P Dictated by : DANIELLE VILLASENOR MD This examination was interpreted and the report reviewed and electronically signed by: DANIELLE VILLASENOR MD on Jan 19 2024 6:58PM [facility] * * *Final Report* * * DATE OF EXAM: Jan 19 2024 6:45PM [facility] 1007 - US DVT LOWER RT / [...] spontaneous respirophasic flow. Normal response to augmentation. [facility] Provider, [facility] * * *Final Report* * * DATE OF EXAM: Jan 19 2024 6:45PM [facility] 1007 - US DVT LOWER RT / [...] and stored in a permanent archive. MQ: MONICA_1 COMPARISON: None RESULT: Evaluation is somewhat limited [...] of unclear etiology. Clinical correlation is recommended. Software Packager: WILNER Transcribe Date/Time: Jan 19 2024 6:56P Dictated by : DANIELLE VILLASENOR MD This examination was interpreted and the report reviewed and electronically signed by: DANIELLE VILLASENOR MD on Jan 19 2024 6:58PM EST [facility] Radiology Study observation (narrative) [facility] US Lower extremity vein - ri ghtOrdered By: Ccf Provider on 01-19-2024 [facility] CNOVon 01-18-2024 CNOV Office Visit (UCWSTR ) -- FRAN PAREKH ([id number]) 1945 M Date Time Provider Department 01/18/24 12:00 PM JOLEEN MUNOZ [facility]WSTR During your visit today, we recorded the following information about you: Temperature Pulse Respiration Blood pressure 97.4 degrees 79/minute 18/minute 126/76 Weight 130.2 kg Joleen Munoz APRN.[facility] 01/18/2024 12:13 PM Signed Patient is seen [...] hour before dental procedure. - CPAP AutoPAP [id number]. Mask per preference, tubing, filters, humidity. Lifetime Supplies. Dx: G47.33. Fax 30 day compliance report to [phone]. - CPAP Please provide mask fitting. Pt [...] 03/25/2009 Open fracture of distal phalangeal tuft [DHC906*08/31/2011 05/09/2014 Internal derangement of right knee [M23.91] [...] embolism wit (more content not included)... Normal [facility] CNOV Office Visit (PUFAMO ) -- FRAN PAREKH ([id number]) 1945 M Date Time Provider Department 01/18/24 9:00 AM VICTOR MANUEL BURROWS During your visit today, we recorded the following information about you: Pulse Respiration Blood pressure 72/minute 18/minute 143/86 Victor Manuel Burrows DO 01/18/2024 9:33 AM Signed [facility] Initial Visit January 18, 2024 I had the pleasure of seeing Fran Parekh in consultation at the request of for Pulmonary Hypertension. Summary of this visit and my recommendations will be relayed to the referring physician by way of electronic communication or by mail. PCP: Agnes Del Rosario MD Referring Provider: Subjective: I had the [...] STOMACH FOR THYROIDDisp: 90 tabletRfl: 3 CPAPAutoPAP 10-77yrT4C. Mask per preference, tubing, filters, humidity. Lifetime Supplies. Dx: G47.33. Fax 30 day compliance report to [phone].Disp: 1 EachRfl: 999 CPAPPlease provide mask fitting. [...] of skin of nose Dr. Chowdary in [place] Stage 3a chronic kidney disease (HCC) Venous insufficiency PAST SURGICAL HISTORY Procedure Laterality Date ARTHRP ACETBLR/PROX FEM PROSTC AGRFT/ALGRFT Right 06/03/2019 Hip replacement, total COLONOSCOPY FLX DX W/COLLJ SPEC WHEN PFRMD 04/21/11 Repeat 10 LASER GREENLIGHT prostate, [place] NEUROPLASTY AND/TRANSPOS MEDIAN NRV CARPAL TUNNE Left 01/17/2020 Left carpal tunnel release NEUROPLASTY AND/TRANSPOS MEDIAN NRV CARPAL TUNNE Right 03/04/2020 Right carpal tunnel release RPR UMBILICAL HRNA 5 YRS/> REDUCIBLE TONSILLECTOMY PRIMARY/SECONDARY Tonsillectomy FAMILY HISTORY Problem Relation Age of Onset Heart Mother other (Myoc (more content not included)... Normal [facility] XR KNEE 4V AP/PA BOTH+LAT/ME R RTon [...] No fracture or joint effusion. IMPRESSION: Osteoarthrosis Software Packager: WILNER Transcribe Date/Time: Jan 20 2024 7:28A Dictated by : ALEXANDER LUNDBERG MD This examination was interpreted and the report reviewed and electronically signed by: ALEXANDER LUNDBERG MD on Jan 20 2024 7:29AM EST [id number] Normal [facility] [id number] 01-17-2024 [id number] HNO ID: [id number] Author: YOGESH FORMAN PT Service: ? Author Type: Physical Therapist Type: [id number] Filed: 01/17/2024 23:01 Note Text: [facility] Physical Therapy Plan of Care Certification Patient Name: Fran Parekh : 1945 [facility] #: [id number] Date: 01/17/2024 To: Agnes Del Rosario,* From Therapist: Yogesh Forman PT RE: Patient [...] fall risk. - Partially MET, will continue [place] in home exercise program including cardiovascular exercise. [...] Patient to be seen for Therapeutic exercise (53939), Neuromuscular re-education (32468), Therapeutic activities (42790), Self-prison management (67991), Gait Training (94061), Patient/Family/Caregiver Education, Body Mechanics Training, General Conditioning PLAN FOR NEXT VISIT: Continue with balance training, gait training, and LE functional strengthening. For further details regarding this patient refer to the Physical Therapy electronically documented visit dated 01/17/2024. Provider Attestation I have reviewed the treatment plan for Fran Parekh, [facility]# [id number] for the period of 01/17/24 -- 02/14/24, established on 01/17/2024. Signature certifies the need for therapy services. Normal [facility] CNTHERAPYon 01-17-2024 CNTHERAPY OT/PT/Speech Visit ( PTWS) -- IGLESIAFRAN Mueller ([id number]) 1945 M Date Time Provider Department 01/17/24 3:15 PM YOGESH FORMAN PTAIDA Date Time Provider Department Center 01/17/2024 3:15 PM [id number], BRENT PTWS Mil Singletary Reason for Visit: Physical Therapy [503] PT Progress Note [1596] Primary Visit Diagnosis:Unsteady gait [R26.81] Allergies As of Date: 01/17/2024 Noted Allergy Reaction NORVASC (AMLODIPINE BESYLATE) 09/14/2016 7 - Swelling Comments: pedal edema VENOM-WASP 01/14/2005 7 - Swelling ZITHROMAX (AZITHROMYCIN) 01/14/2005 9 - Itching Date Reviewed: 01/16/2024 Reviewed by: Sonya Noriega, CHAD - Fully Assessed Prescriptions as of 01/17/2024 [...] hour before dental procedure. - CPAP AutoPAP [id number]. Mask per preference, tubing, filters, humidity. Lifetime Supplies. Dx: G47.33. Fax 30 day compliance report to [phone]. - CPAP Please provide mask fitting. Pt [...] % (flush) 10 mL (BD POSIFLUSH) Normal [facility] CNOVon 01-16-2024 CN Office Visit (CARD ) -- FRAN PAREKH ([id number]) 1945 M Date Time Provider Department 01/16/24 1:00 PM [facility] During your visit today, we recorded the following information about you: Referring Provider: VICTOR MANUEL BURROWS [[id number]] Allergies As of Date: 01/16/2024 Noted Allergy Reaction NORVASC (AMLODIPINE BESYLATE) 09/14/2016 7 - Swelling Comments: pedal edema VENOM-WASP 01/14/2005 7 - Swelling ZITHROMAX (AZITHROMYCIN) 01/14/2005 9 - Itching Date Reviewed: 01/16/2024 Reviewed by: Sonya Noriega RN - Fully Assessed Visit Diagnoses: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 - CPAP AutoPAP 10-25eoQ4R. Mask per preference, tubing, filters, humidity. Lifetime Supplies. Dx: G47.33. Fax 30 day compliance report to [phone]. - CPAP Please provide mask fitting. Pt [...] 03/25/2009 Open fracture of distal phalangeal tuft [HUU338*08/31/2011 05/09/2014 Internal derangement of right knee [M23.91] [...] RVF (right (more content not included)... Normal [facility] ECHOon 01-16-2024 CONCLUSIONS: - Technically difficult [...] [facility] Echocardiography Report: Transthoracic Echo [facility] Office Date of service: 01/16/2024 1:10:40 PM SERVICE ENGINEER Ordering physician: VICTOR MANUEL BURROWS Indication: H/O Pulmonary Embolism Technologist: Home Sue [...] or not interrogated. [facility] Echocardiography Echocardiography Rep ort: Transthoracic Echo [facility] Date of service: 01/16/2024 1:10:40 PM SERVICE ENGINEER Ordering physician: VICTOR MANUEL BURROWS Indication: H/O Pulmonary Embolism Technologist: Home Sue [...] * * Final * * * CC [facility] : [id number] [facility] -- FRAN PAREKH ([id number]) 1945 M Date Time Provider Department 01/10/24 [facility] During your visit today, we recorded the following information about you: Harriet Grider RN 01/10/2024 11:54 AM Signed Patient calling and requesting a disc for his 05/15/23 Lumbar XRAY. He is interested in getting a disc to mil Painting surgeon. Informed pt that a message would be sent to Radiology for this request. Please call patient with an update regarding this request. Harriet Grider, Ju Rainey RN 01/10/2024 1:[address] Samuel has never seen this patient. Perhaps it should go to radiology or the person who ordered it? Michelle Stroud, PSS 01/11/2024 3:43 PM Signed CD READY FOR HEPATOLOGIST AT [facility] [facility] for pt Allergies As of Date: [...] hour before dental procedure. - CPAP AutoPAP [id number]. Mask per preference, tubing, filters, humidity. Lifetime Supplies. Dx: G47.33. Fax 30 day compliance report to [phone]. - CPAP Please provide mask fitting. Pt [...] 03/25/2009 Open fracture of distal phalangeal tuft [[id number]*08/31/2011 05/09/2014 Internal derangement of right knee [M23.91] [...] (HCC) [N18.3 (more content not included)... Normal [facility] CNTHERAPYon 01-10-2024 CNTHERAPY OT/PT/Speech Visit ( PTWS) -- FRAN PAREKH ([id number]) 1945 M Date Time Provider Department 01/10/24 10:00 AM YOGESH FORMAN PTWS Date Time Provider Department Center 01/10/2024 10:00 AM [id number], BRENT PTWS [place] [facility] Reason for Visit: Physical Therapy [503] Primary Visit Diagnosis:Unsteady gait [R26.81] Allergies As of Date: 01/10/2024 Noted Allergy Reaction NORVASC (AMLODIPINE BESYLATE) 09/14/2016 7 - Swelling Comments: pedal edema VENOM-WASP 01/14/2005 7 - Swelling ZITHROMAX (AZITHROMYCIN) 01/14/2005 9 - Itching Date Reviewed: 12/19/2023 Reviewed by: Alisia Parada, RN - Fully Assessed Prescriptions as of 01/10/2024 [...] hour before dental procedure. - CPAP AutoPAP [id number]. Mask per preference, tubing, filters, humidity. Lifetime Supplies. Dx: G47.33. Fax 30 day compliance report to [phone]. - CPAP Please provide mask fitting. Pt [...] % (flush) 10 mL (BD POSIFLUSH) Normal [facility] CNTHERAPYon 01-08-2024 CNTHERAPY OT/PT/Speech Visit ( PTWS) -- FRAN PAREKH ([id number]) 1945 M Date Time Provider Department 01/08/24 9:30 AM TABBY GIBBS Date Time Provider Department Center 01/08/2024 9:30 AM [id number], MARIAH PTAIDA Singletary Reason for Visit: Physical Therapy [503] [...] hour before dental procedure. - CPAP AutoPAP [id number]. Mask per preference, tubing, filters, humidity. Lifetime Supplies. Dx: G47.33. Fax 30 day compliance report to [phone]. - CPAP Please provide mask fitting. Pt [...] % (flush) 10 mL (BD POSIFLUSH) Normal [facility] CNTHERAPYon 01-04-2024 CNTHERAPY OT/PT/Speech Visit ( PTWS) -- FRAN PAREKH ([id number]) 1945 M Date Time Provider Department 01/04/24 3:45 PM YOGESH FORMAN PTAIDA Date Time Provider Department Center 01/04/2024 3:45 PM [id number], BRENT PTWS iMl [facility] Reason for Visit: Physical Therapy [503] Primary Visit Diagnosis:Unsteady gait [R26.81] Allergies As of Date: 01/04/2024 Noted Allergy Reaction NORVASC (AMLODIPINE BESYLATE) 09/14/2016 7 - Swelling Comments: pedal edema VENOM-WASP 01/14/2005 7 - Swelling ZITHROMAX (AZITHROMYCIN) 01/14/2005 9 - Itching Date Reviewed: 12/19/2023 Reviewed by: Alisia Parada RN - Fully Assessed Prescriptions as of [...] hour before dental procedure. - CPAP AutoPAP [id number]. Mask per preference, tubing, filters, humidity. Lifetime Supplies. Dx: G47.33. Fax 30 day compliance report to [phone]. - CPAP Please provide mask fitting. Pt [...] % (flush) 10 mL (BD POSIFLUSH) Normal [facility] [place] LUNG VENT / PERF VQon NM [...] defects corresponding to prior known pulmonary embolism. Software Packager: [facility] Transcribe Date/Time: Nov 22 2023 2:12P Dictated by : SHELBY KELLER MD This examination was interpreted and the report reviewed and electronically signed by: SHELBY KELLER MD on Nov 22 2023 2:18PM EST [id number] [facility] [place] Lung Ventilation and Perf usionon 11-22-2023 IMPRESSION: Bilateral few mismatched defects corresponding to prior known pulmonary embolism. Software Packager: [facility] Transcribe Date/Time: Nov 22 2023 2:12P Dictated by : SHELBY KELLER MD This examination was interpreted and the report reviewed and electronically signed by: SHELBY KELLER MD on Nov 22 2023 2:18PM EST [facility] * * *Final Report* * * [...] Bilateral few mismatched defects. Few matched defects. [facility] Provider, Priscilla Rodgers - 11/22/2023 * [...] defects corresponding to prior known pulmonary embolism. Software Packager: [employer] Transcribe Date/Time: Nov 22 2023 2:12P Dictated by : SHELBY KELLER MD This examination was interpreted and the report reviewed and electronically signed by: SHELBY KELLER MD on Nov 22 2023 2:18PM EST [facility] Radiology Study observation (narrative) [facility] NM Lung Ventilation and Perf usionOrdered By: [facility] Provider on 11-22-2023 [facility] CNOVon 11-09-2023 CNOV Office Visit (PUFAMO ) -- FRAN PAREKH ([id number]) 1945 M Date Time Provider Department 11/09/23 11:00 AM VICTOR MANUEL BRUROWS During your visit today, we recorded the following information about you: Pulse Blood pressure Weight Height 55/minute 141/84 128.8 kg 1.829 m Victor Manuel Burrows DO 11/09/2023 2:23 PM Signed Consultation requested [...] exertion for the prior week or so. [place] acute shortness of breath and severe lightheadedness [...] of skin of nose Dr. Chowdary in [place] Stage 3a chronic kidney disease (HCC) Venous insufficiency HTN DM Type 2 Pulmonary Embolism/DVT Lung Nodules Social History Leads sedentary lifestyle getting up from chair to go to the restroom, eat, etc. Swam recreationally until about a year ago. He denies surgery in the last 3 months, trauma, immobilization, travel, family history of clotting disorder. Does fly to [place] about 3 times/year, [place] trip [place]. Never smoked, IV, drugs, or alcohol. Family [...] lung cancer in his father. 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 [...] by Avril Pham DO. Reviewed by Dr. Burrows. PHYSICAL EXAM VITAL SIGNS: BP 141/84 Pulse [...] on jen (more content not included)... Normal [facility] Basic metabolic 2000 panelon 10-27-2023 Anion gap [Moles/Vol] 13 mmol/L Normal 8-15 [facility] Comment on above: Order Comment: Tiffanie rollins Type: BLOOD SPECIMEN Ordering Facility: [facility] Address: [address] [place] [address] Performed By: #### P TTAC, 16646-0 #### [facility] CLIA [id number] [address] [place] [address] [place] Calcium [Mass/Vol] 9.0 mg/dL Normal 8.5-10.2 [facility] Comment on above: Order Comment: Tiffanie rollins Type: BLOOD SPECIMEN Ordering Facility: [facility] Address: [address] [place] [address] Performed By: #### P TTAC, 20116-3 #### [facility] CLIA [id number] [place] [address] [place] Chloride [Moles/Vol] 107 mmol/L Normal 98-107 [facility] Comment on above: Order Comment: Tiffanie rollins Type: BLOOD SPECIMEN Ordering Facility: [facility] Address: [address] [place] [address] Performed By: #### P TTAC, 10863-3 #### [facility] CLIA [id number] [place] [address] [place] CO2 [Moles/Vol] 20 mmol/L Low 22-30 [facility] Comment on above: Order Comment: Tiffanie rollins Type: BLOOD SPECIMEN Ordering Facility: [facility] Address: [address] [place] [address] Performed By: #### P TTAC, 45318-0 #### [facility] CLIA [id number] [address] [place] [id number] [place] Creatinine [Mass/Vol] 1.32 mg/dL High 0.73-1.22 [facility] Comment on above: Order Comment: Tiffanie rollins Type: BLOOD SPECIMEN Ordering Facility: [facility] Address: [address] [place] [address] Performed By: #### P TTAC, 33362-4 #### [facility] CLIA [id number] [address] [place] [address] [place] Creatinine and Glomerular filtration rate.predicted panel (S/P/Bld) 55 mL/min/1.73m??? Low >=60 [facility] Comment on above: Order Comment: Tiffanie rollins Type: BLOOD SPECIMEN Ordering Facility: [facility] Address: [address] [place] [address] Result Comment: Danika mated Glomerular Filtration Rate [...] actual GFR. Performed By: #### P TTAC, 36219-1 #### [facility] CLIA [id number] [place] [address] [place] Glucose [Mass/Vol] 103 mg/dL High 74-99 [facility] Comment on above: Order Comment: Tiffanie rollins Type: BLOOD SPECIMEN Ordering Facility: [facility] Address: [address] [place] [address] Result Comment: The [place] Diabetes Association (ADA) provides guidance for cutoff [...] Standards of Medical Care in Diabetes 2016, [place] [employer]. Diabetes Care. 2016.39(Suppl 1). Performed By: #### P TTAC, 28084-4 #### [facility] CLIA [id number] [address] [place] [address] [place] Potassium [Moles/Vol] 4.4 mmol/L Normal 3.7-5.1 [facility] Comment on above: Order Comment: Tiffanie rollins Type: BLOOD SPECIMEN Ordering Facility: [facility] Address: [address] [place] [address] Performed By: #### P TTAC, 73947-6 #### [facility] CLIA [id number] [address] [place] [address] [place] Sodium [Moles/Vol] 140 mmol/L Normal 136-144 [facility] Comment on above: Order Comment: Tiffanie rollins Type: BLOOD SPECIMEN Ordering Facility: [facility] Address: [address] [place] [address] Performed By: #### P TTAC, 79891-4 #### [facility] CLIA [id number] [address] [place] [address] [place] Urea nitrogen [Mass/Vol] 25 mg/dL High 9-24 [facility] Comment on above: Order Comment: Tiffanie rollins Type: BLOOD SPECIMEN Ordering Facility: [facility] Address: [address] [place] [address] Performed By: #### P TTAC, 85482-2 #### [facility] CLIA [id number] [address] [place] [address] [place] CNDSon 10-27-2023 CNDS HNO ID: [id number] Author: MARQUITA HARP MD Service: Hospital Medicine Author Type: Physician Type: Discharge Summary Filed: 11/02/2023 09:35 Note Text: DISCHARGE SUMMARY PATIENT NAME: Fran Parekh ADMISSION DATE: 10/23/2023 DISCHARGE DATE: October 30, 2023 ATTENDING PHYSICIAN: Marquita Harp MD Code Status: Prior PCP: Agnes Del Rosario MD Highest Readmission Risk Score: 11 The [...] This 78 years old male transferred from [facility] to our facility with acute hypoxic [...] Attending Provider: Marquita Harp MD Primary Service: 4, [facility] PATIENT CONDITION AT DISCHARGE: Fair DISCHARGE DISPOSITION: [...] Department Center 11/09/2023 11:00 AM Victor [facility] Burrows [facility] Dis[facility] Information Row Name Admission (Discharged) from 10/23/[address] [facility] [place] [facility]ina Mil Start of Care -- they will call [...] Thank you. DME = [facility] CPAP AutoPAP [id number]. Mask per preference, tubing, filters, humidity. Lifetime Supplies. Dx: G47.33. Fax 30 day compliance report to [phone]. gabapentin 300 mg capsule Commonly known as: NEURONTIN hydroCHLOROthiazide 25 mg tablet Take 1 tablet by mouth once daily. levothyroxine 125 mcg tablet Commonly known as: SYNTHROID TAKE 1 TAB (more content not included)... Normal [facility] PT panel Coag (PPP)on 2023 INR Coag (PPP) [Relative time] 1.2 {INR} Normal 0.9-1.3 [facility] Comment on above: Order Comment: Speci men Type: BLOOD SPECIMEN Ordering Facility: [facility] Address: [address] [place] [address] Result Comment: Yvonne min K Antagonist (VKA) Therapeutic Range: INR 2 to 3 (Target INR of 2.5) Note: For patients treated with VKA drugs, such as warfarin, the [place] [employer] 2012 Guideline recommends [...] GH, et al. Chest 2012, 141:7S-47S Saray RA et al. [facility] 2017, 70: 252-289 Performed By: #### P TTAC #### [facility] CLIA [id number] [address] [place] [address] [place] PT Coag (PPP) [Time] 12.8 s Normal 9.7-13.0 [facility] Comment on above: Order Comment: Tiffanie rollins Type: BLOOD SPECIMEN Ordering Facility: [facility] Address: [address] [place] [address] Performed By: #### P TTAC #### [facility] CLIA [id number] [address] [place] [address] [place] Basic metabolic 2000 panelon 10-26-2023 Anion gap [Moles/Vol] 13 mmol/L Normal 8-15 [facility] Comment on above: Order Comment: Tiffanie rollins Type: BLOOD SPECIMEN Ordering Facility: [facility] Address: [address] [place] [address] Performed By: #### P TTAC #### [facility] CLIA [id number] [address] [place] [address] [place] Calcium [Mass/Vol] 8.9 mg/dL Normal 8.5-10.2 [facility] Comment on above: Order Comment: Speci men Type: BLOOD SPECIMEN Ordering Facility: [facility] Address: [address] [place] [address] Performed By: #### P TTAC #### [facility] CLIA [id number] [address] [place] [address] [place] Chloride [Moles/Vol] 105 mmol/L Normal 98-107 [facility] Comment on above: Order Comment: Speci men Type: BLOOD SPECIMEN Ordering Facility: [facility] Address: [address] [place] [address] Performed By: #### P TTAC #### [facility] CLIA [id number] [address] [place] [address] [place] CO2 [Moles/Vol] 23 mmol/L Normal 22-30 [facility] Comment on above: Order Comment: Speci men Type: BLOOD SPECIMEN Ordering Facility: [facility] Address: [address] [place] [address] Performed By: #### P TTAC #### [facility] CLIA [id number] [address] [place] [address] [place] Creatinine [Mass/Vol] 1.34 mg/dL High 0.73-1.22 [facility] Comment on above: Order Comment: Speci men Type: BLOOD SPECIMEN Ordering Facility: [facility] Address: [address] [place] [address] Performed By: #### P TTAC #### [facility] CLIA [id number] [address] [place] [address] [place] Creatinine and Glomerular filtration rate.predicted panel (S/P/Bld) 54 mL/min/1.73m??? Low >=60 [facility] Comment on above: Order Comment: Speci men Type: BLOOD SPECIMEN Ordering Facility: [facility] Address: [address] [place] [address] Result Comment: Danika mated Glomerular Filtration Rate [...] GFR. Performed By: #### P TTAC #### [facility] CLIA [id number] [address] [place] [address] [place] Glucose [Mass/Vol] 118 mg/dL High 74-99 [facility] Comment on above: Order Comment: Tiffanie rollins Type: BLOOD SPECIMEN Ordering Facility: [facility] Address: [address] [place] [address] Result Comment: The [place] Diabetes Association (ADA) provides guidance for cutoff [...] Standards of Medical Care in Diabetes 2016, [place] [employer]. Diabetes Care. 2016.39(Suppl 1). Performed By: #### P TTAC #### [facility] CLIA [id number] [address] [place] [address] [place] Potassium [Moles/Vol] 4.3 mmol/L Normal 3.7-5.1 [facility] Comment on above: Order Comment: Tiffanie rollins Type: BLOOD SPECIMEN Ordering Facility: [facility] Address: [address] [place] [address] Performed By: #### P TTAC #### [facility] CLIA [id number] [address] [place] [address] [place] Sodium [Moles/Vol] 141 mmol/L Normal 136-144 [facility] Comment on above: Order Comment: Tiffanie rollins Type: BLOOD SPECIMEN Ordering Facility: [facility] Address: [address] [place] [address] Performed By: #### P TTAC #### [facility] CLIA [id number] [address] [place] [address] [place] Urea nitrogen [Mass/Vol] 24 mg/dL Normal 9-24 [facility] Comment on above: Order Comment: Speci men Type: BLOOD SPECIMEN Ordering Facility: [facility] Address: [address] [place] [address] Performed By: #### P TTAC #### [facility] CLIA [id number] [address] [place] [address] [place] CBC panel Auto (Bld)on 10-25 Erythrocyte distribution width (RBC) [Ratio] 14.6 % Normal 11.5-15.0 [facility] Comment on above: Order Comment: Speci men Type: BLOOD SPECIMENOrdering Facility: [facility] Address: [address] [place] [address] Performed By: #### 5 8410-2 ####[facility] [id number] [address] [place] [facility] Hematocrit (Bld) [Volume fraction] 41.8 % Normal 39.0-51.0 [facility] Comment on above: Order Comment: Speci men Type: BLOOD SPECIMENOrdering Facility: [facility] Address: [address] [place] [address] Performed By: #### 5 8410-2 ####[facility] [id number] [address] [place] Hemoglobin (Bld) [Mass/Vol] 14.6 g/dL Normal 13.0-17.0 [facility] Comment on above: Order Comment: Speci men Type: BLOOD SPECIMENOrdering Facility: [facility] Address: [address] [place] [address] Performed By: #### 5 8410-2 ####[facility] [id number] [address] [place] MCH (RBC) [Entitic mass] 33.1 pg Normal 26.0-34.0 [facility] Comment on above: Order Comment: Speci men Type: BLOOD SPECIMENOrdering Facility: [facility] Address: [facility] [place] [address] Performed By: #### 5 8410-2 ####[facility] [id number] [place] [address] [place] MCHC (RBC) [Mass/Vol] 34.9 g/dL Normal 30.5-36.0 [facility] Comment on above: Order Comment: Speci men Type: BLOOD SPECIMENOrdering Facility: [facility] Address: [address] [place] [address] Performed By: #### 5 8410-2 ####[facility] [id number] [address] [place] MCV (RBC) [Entitic vol] 94.8 fL Normal 80.0-100.0 [facility] Comment on above: Order Comment: Speci men Type: BLOOD SPECIMENOrdering Facility: [facility] Address: [address] [place] [address] Performed By: #### 5 8410-2 ####[facility] [id number] [place] [address] [place] Nucleated RBC (Bld) [#/Vol] 10*3/uL Normal <0.01 [facility] Comment on above: Order Comment: Speci men Type: BLOOD SPECIMENOrdering Facility: [facility] Address: [address] [place] [address] Performed By: #### 5 8410-2 ####[facility] [id number] [place] [address] [place] Platelet mean volume (Bld) [Entitic vol] 9.7 fL Normal 9.0-12.7 [facility] Comment on above: Order Comment: Speci men Type: BLOOD SPECIMENOrdering Facility: [facility] Address: [address] [place] [address] Performed By: #### 5 8410-2 ####[facility] [id number] [place] [address] [place] Platelets (Bld) [#/Vol] 165 10*3/uL Normal 150-400 [facility] Comment on above: Order Comment: Speci men Type: BLOOD SPECIMENOrdering Facility: [facility] Address: [address] [place] [address] Performed By: #### 5 8410-2 ####[facility] [id number] [place] [id number] [place] RBC (Bld) [#/Vol] 4.41 10*6/uL Normal 4.20-6.00 [facility] Comment on above: Order Comment: Speci men Type: BLOOD SPECIMENOrdering Facility: [facility] Address: [address] [place] [address] Performed By: #### 5 8410-2 ####[facility] [id number] [place] [id number] [facility] [place] WBC (Bld) [#/Vol] 10.66 10*3/uL Normal 3.70-11.00 [facility] Comment on above: Order Comment: Speci men Type: BLOOD SPECIMENOrdering Facility: [facility] Address: [address] [place] [address] Performed By: #### 5 8410-2 ####[facility] [id number] [place] [id number] [facility] CONSULT PROGon 10-26-2023 CONSULT PROG HNO ID: [id number] Author: ANTHONY VIRAMONTES RPh Service: Pharmacy Author Type: Pharmacist Type: [...] care of this patient. Anthony Viramontes RPh Normal [facility] CONSULT PROG HNO ID: [id number] Author: RADHA MELGAR RPh Service: Pharmacy Author [...] of bleeding or bruising Additional data elements ([facility]) Is INR less than 1.7? Yes Is [...] 10/23/23 0254 05/15/23 0959 11/02/22 0946 AST ALT ALKPHOS 75 76 83 TBILI 0.5 0.5 [...] (NEURONTIN) Has patient received education: Yes Radha Melgar, ShamarD, MS, BCPS Clinical Pharmacist October 26, 2023 2:45 PM Normal [facility] PT panel Coag (PPP)on 2023 INR Coag (PPP) [Relative time] 1.0 {INR} Normal 0.9-1.3 [facility] Comment on above: Order Comment: Speci men Type: VENOUS BLOOD SPECIMEN Ordering Facility: [facility] Address: [address] [place] [address] Result Comment: Yvonne min K Antagonist (VKA) Therapeutic Range: INR 2 to 3 (Target INR of 2.5) Note: For patients treated with VKA drugs, such as warfarin, the [place] [employer]icians 2012 Guideline recommends [...] Chest 2012, 141:7S-47S Saray WISE et al. [facility] 2017, 70: 252-289 Performed By: #### 2 4344-4 #### [facility] CLIA [id number] [address] [place] [address] [place] PT Coag (PPP) [Time] 11.6 s Normal 9.7-13.0 [facility] Comment on above: Order Comment: Tiffanie rollins Type: VENOUS BLOOD SPECIMEN Ordering Facility: [facility] Address: [address] [place] [address] Performed By: #### 2 4344-4 #### [facility] CLIA [id number] [address] [place] [address] [place] PTT, ANTICOAGULANT THERAPYon 10-26-2023 aPTT Coag (PPP) [Time] 31.8 s Normal 23.0-32.4 [facility] Comment on above: Order Comment: Tiffanie rollins Type: BLOOD SPECIMEN Ordering Facility: [facility] Address: [address] [place] [address] Performed By: #### P TTA #### [facility] CLIA [id number] [address] [place] [address] [place] aPTT Coag (PPP) [Time] 60.0 s High 23.0-32.4 [facility] Comment on above: Order Comment: Speci men Type: VENOUS BLOOD SPECIMEN Ordering Facility: [facility] Address: [address] [place] [address] Performed By: #### 2 4344-4 #### [facility] CLIA [id number] [place] aPTT Coag (PPP) [Time] 83.6 s High 23.0-32.4 [facility] Comment on above: Order Comment: Speci men Type: VENOUS BLOOD SPECIMEN Ordering Facility: [facility] Address: [address] [place], [place] [address] Performed By: #### 2 4344-4 #### [facility] CLIA [id number] [address] [place] [id number] [place] THERAPY NTon 10-26-2023 THERAPY NT HNO ID: [id number] Author: DEVYN MOYER PT Service: Physical Therapy Author Type: Physical Therapist Type: Therapy (PT/OT/Speech/Resp) Filed: 10/26/2023 18:46 Note Text: Physical Therapy Evaluation Summary SERVICE DATE: 10/26/2023 SERVICE TIME: 1715 to 1745 ROOM: [place] [address] PT 6 Clicks Score: 21 DISCHARGE RECOMMENDATIONS [...] Reduced mobility-other TREATMENT INTERVENTIONS Evaluation, Gait Training (71676) Timed Code Treatment (minutes): 10 Skilled Treatment [...] October 26, 2023 TIME: 6:46 PM Normal [facility] Basic metabolic 2000 panelon 10-25-2023 Anion gap [Moles/Vol] 10 mmol/L Normal 8-15 [facility] [facility] Comment on above: Order Comment: Speci men Type: VENOUS BLOOD SPECIMEN Ordering Facility: [facility] Address: [address] [place] [address] Performed By: #### 2 4344-4 #### [facility] CLIA [id number] [address] [place] [address] [place] Calcium [Mass/Vol] 8.7 mg/dL Normal 8.5-10.2 [facility] Comment on above: Order Comment: Speci men Type: VENOUS BLOOD SPECIMEN Ordering Facility: [facility] Address: [address] [place] [address] Performed By: #### 2 4344-4 #### [facility] CLIA [id number] [place] [address] [place] Chloride [Moles/Vol] 105 mmol/L Normal 98-107 [facility] Comment on above: Order Comment: Speci men Type: VENOUS BLOOD SPECIMEN Ordering Facility: [facility] Address: [address] [place] [address] Performed By: #### 2 4344-4 #### [facility] CLIA [id number] [place] [address] [place] CO2 [Moles/Vol] 27 mmol/L Normal 22-30 [facility] Comment on above: Order Comment: Speci men Type: VENOUS BLOOD SPECIMEN Ordering Facility: [facility] Address: [address] [place] [address] Performed By: #### 2 4344-4 #### [facility] CLIA [id number] [address] [place] [address] [place] Creatinine [Mass/Vol] 1.64 mg/dL High 0.73-1.22 [facility] Comment on above: Order Comment: Speci men Type: VENOUS BLOOD SPECIMEN Ordering Facility: [facility] Address: [address] [place] [address] Performed By: #### 2 4344-4 #### [facility] CLIA [id number] [address] [place] [address] [place] Creatinine and Glomerular filtration rate.predicted panel (S/P/Bld) 42 mL/min/1.73m??? Low >=60 [facility] Comment on above: Order Comment: Speci men Type: VENOUS BLOOD SPECIMEN Ordering Facility: [facility] Address: [address] [place] [address] Result Comment: Danika mated Glomerular Filtration Rate [...] GFR. Performed By: #### 2 4344-4 #### [facility] CLIA [id number] [address] [place] [address] [place] Glucose [Mass/Vol] 107 mg/dL High 74-99 [facility] Comment on above: Order Comment: Tiffanie rollins Type: VENOUS BLOOD SPECIMEN Ordering Facility: [facility] Address: [address] [place] [address] Result Comment: The [place] [employer] (ADA) provides guidance for cutoff [...] Standards of Medical Care in Diabetes 2016, [place] [employer]. Diabetes Care. 2016.39(Suppl 1). Performed By: #### 2 4344-4 #### [facility] CLIA [id number] [address] [place] [address] [place] Potassium [Moles/Vol] 3.9 mmol/L Normal 3.7-5.1 [facility] Comment on above: Order Comment: Tiffanie rollins Type: VENOUS BLOOD SPECIMEN Ordering Facility: [facility] Address: [address] [place] [address] Performed By: #### 2 4344-4 #### [facility] CLIA [id number] [address] [place] [address] [place] Sodium [Moles/Vol] 142 mmol/L Normal 136-144 [facility] Comment on above: Order Comment: Ruthi men Type: VENOUS BLOOD SPECIMEN Ordering Facility: [facility] Address: [address] [place] [address] Performed By: #### 2 4344-4 #### [facility] CLIA [id number] [address] [place] [address] [place] Urea nitrogen [Mass/Vol] 24 mg/dL Normal 9-24 [facility] Comment on above: Order Comment: Speci men Type: VENOUS BLOOD SPECIMEN Ordering Facility: [facility] Address: [address] [place] [address] Performed By: #### 2 4344-4 #### [facility] CLIA [id number] [address] [place] [address] [place] CBC panel Auto (Bld)on 10-24 Erythrocyte distribution width (RBC) [Ratio] 14.4 % Normal 11.5-15.0 [facility] Comment on above: Order Comment: Speci men Type: BLOOD SPECIMENOrdering Facility: [facility] Address: [address] [place] [address] Performed By: #### 5 8410-2 ####[facility] [id number] [address] [place] Hematocrit (Bld) [Volume fraction] 42.2 % Normal 39.0-51.0 [facility] Comment on above: Order Comment: Speci men Type: BLOOD SPECIMENOrdering Facility: [facility] Address: [address] [place] [address] Performed By: #### 5 8410-2 ####[facility] [id number] [place] [address] [place] Hemoglobin (Bld) [Mass/Vol] 14.3 g/dL Normal 13.0-17.0 [facility] Comment on above: Order Comment: Speci men Type: BLOOD SPECIMENOrdering Facility: [facility] Address: [address] [place] [address] Performed By: #### 5 8410-2 ####[facility] [id number] [place] [address] [place] MCH (RBC) [Entitic mass] 32.3 pg Normal 26.0-34.0 [facility] Comment on above: Order Comment: Speci men Type: BLOOD SPECIMENOrdering Facility: [facility] Address: [address] [place] [address] Performed By: #### 5 8410-2 ####[facility] [id number] [place] [address] [place] MCHC (RBC) [Mass/Vol] 33.9 g/dL Normal 30.5-36.0 [facility] Comment on above: Order Comment: Speci men Type: BLOOD SPECIMENOrdering Facility: [facility] Address: [address] [place] [address] Performed By: #### 5 8410-2 ####[facility]ATORYCLIA [id number] [place] [address] [place] MCV (RBC) [Entitic vol] 95.3 fL Normal 80.0-100.0 [facility] Comment on above: Order Comment: Speci men Type: BLOOD SPECIMENOrdering Facility: [facility] Address: [address] [place] [address] Performed By: #### 5 8410-2 ####[facility]ATORYCLIA [id number] [place] [address] [place] Nucleated RBC (Bld) [#/Vol] 10*3/uL Normal <0.01 [facility] Comment on above: Order Comment: Speci men Type: BLOOD SPECIMENOrdering Facility: [facility] Address: [address] [place] [address] Performed By: #### 5 8410-2 ####[facility]ATORYCLIA [id number] [place] [address] [place] Platelet mean volume (Bld) [Entitic vol] 9.8 fL Normal 9.0-12.7 [facility] Comment on above: Order Comment: Speci men Type: BLOOD SPECIMENOrdering Facility: [facility] Address: [address] [place] [address] Performed By: #### 5 8410-2 ####[facility]ATORYCLIA [id number] [place] [address] [place] Platelets (Bld) [#/Vol] 180 10*3/uL Normal 150-400 [facility] Comment on above: Order Comment: Speci men Type: BLOOD SPECIMENOrdering Facility: [facility] Address: [address] [place] [address] Performed By: #### 5 8410-2 ####[facility] [id number] [place] [id number] [place] RBC (Bld) [#/Vol] 4.43 10*6/uL Normal 4.20-6.00 [facility] Comment on above: Order Comment: Speci men Type: BLOOD SPECIMENOrdering Facility: [facility] Address: [address] [place] [address] Performed By: #### 5 8410-2 ####[facility] [id number] [place] [id number] [facility] [place] WBC (Bld) [#/Vol] 10.95 10*3/uL Normal 3.70-11.00 [facility] Comment on above: Order Comment: Speci men Type: BLOOD SPECIMENOrdering Facility: [facility] Address: [address] [place] [address] Performed By: #### 5 8410-2 ####[facility] [id number] [address] OF [facility] CONSULT PROGon 10-25-2023 CONSULT PROG HNO ID: [id number] Author: COLE FELTON RPh Service: Pharmacy Author Type: Pharmacist Type: [...] No, per bedside RN Additional data elements ([facility]) Is INR less than 1.7? Yes Is [...] patient received education: No Signature: Cole Felton [facility] Pager/Extension: [phone] [facility] Magnesium SerPl-mCncon 10-24 Magnesium [Mass/Vol] 1.8 mg/dL Normal 1.7-2.3 [facility] Comment on above: Order Comment: Speci men Type: VENOUS BLOOD SPECIMEN Ordering Facility: [facility] Address: [address] [place] [address] Performed By: #### 2 4344-4 #### [facility] CLIA [id number] [address] [place] [address] OF [facility] NURSING PROGon 10-25-2023 NURSING PROG HNO ID: [id number] Author: VALERY KEATING RN Service: ? Author Type: Registered Nurse Type: Nursing Progress Note Filed: 10/25/2023 23:21 Note Text: 2289: page to hospitalist Fran Parekh PK228 pt had 7 beats v-tach, asymptomatic. thanks-Valery [id number] 2322: Direct message from Dr. Macario MD page was received ! no intervention needed [facility] NURSING PROG HNO ID: [id number] Author: VALERY KEATING RN Service: ? Author Type: Registered Nurse Type: Nursing Progress Note Filed: 10/25/2023 03:27 Note Text: 0328: page to hospitalist Fran Parekh PK228 urgent lab value called to unit. PTT = 101.3. per nomogram, stopping for 1 hr then restarting at 1600u. thanks -Valery [id number] [facility] PT EDon 10-25-2023 PT ED HNO ID: [id number] Author: COLE FELTON RP Service: Pharmacy Author Type: Pharmacist Type: Patient [...] plan: Follow-up to be determined. Patient from [facility] Indication for oral 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: pulmonary embolus [...] potential adverse drug reactions and interactions. Cole Felton [facility] PT panel Coag (PPP)on 2023 INR Coag (PPP) [Relative time] 1.0 {INR} Normal 0.9-1.3 [facility] Comment on above: Order Comment: Tiffanie rollins Type: BLOOD SPECIMEN Ordering Facility: [facility] Address: [address] [place] [address] Result Comment: Yvonne min K Antagonist (VKA) Therapeutic Range: INR 2 to 3 (Target INR of 2.5) Note: For patients treated with VKA drugs, such as warfarin, the [place] [employer] 2012 Guideline recommends [...] Chest 2012, 141:7S-47S Saray RA, et al. [facility] 2017, 70: 252-289 Performed By: #### P TTAC #### [facility] CLIA [id number] [address] [place] [address] [place] PT Coag (PPP) [Time] 11.6 s Normal 9.7-13.0 [facility] Comment on above: Order Comment: Tiffanie rollins Type: BLOOD SPECIMEN Ordering Facility: [facility] Address: [address] [place] [address] Performed By: #### P TTAC #### [facility] CLIA [id number] [address] [place] [address] [place] PTT, ANTICOAGULANT THERAPYon 10-25-2023 aPTT Coag (PPP) [Time] 71.9 s High 23.0-32.4 [facility] Comment on above: Order Comment: Tiffanie rollins Type: BLOOD SPECIMENOrdering Facility: [facility] Address: [address] [place] [address] Performed By: #### P TTAC ####[facility]ORATORYCLIA [id number] [address] aPTT Coag (PPP) [Time] 57.9 s High 23.0-32.4 [facility] Comment on above: Order Comment: Speci men Type: BLOOD SPECIMEN Ordering Facility: [facility] Address: [address] [place] [address] Performed By: #### P TTAC #### [facility] CLIA [id number] aPTT Coag (PPP) [Time] 101.3 s High 23.0-32.4 [facility] Comment on above: Order Comment: Speci men Type: BLOOD SPECIMEN Ordering Facility: [facility] Address: [address] [place] [address] Performed By: #### P TTAC #### [facility] CLIA [id number] [address] [place] [address] ALLIED HEALTHon 10-24-2023 ALLIED HEALTH HNO ID: [id number] Author: JUAN C ESCOTO Chaplain Service: Spiritual Care Author Type: Special Education Para Professional Type: Allied Health Filed: 10/24/2023 14:08 Note Text: SPIRITUALCARE Spiritual Care Visit- Brief Note Name: Fran Parekh Date: October 24, 2023 Notes: While engaging in spiritual care rounds on the SICU unit, I visited the patient and introduced spiritual care services. 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 Special Education Para Professional provided caring presence and responses, interactive listening and connected patient to a reflection in mindfulness concentrating on love. I provided further spiritual presence and bucolical support through an offer of prayers. Patient was grateful. I shared chemical treatment operator availability. To contact the Spiritual Care Department: Please call [phone] or Page the On-Call Special Education Para Professional at pager [phone]. Thank you for the opportunity to be of service. SIGNATURE: Chaplain Alphonse PATIENT NAME: Fran Parekh DATE: October 24, 2023 TIME: 8:45 AM This is an electronically created document. IF PRINTED, PLEASE DO NOT REMOVE FROM THE CHART OR MODIFY PRINTED COPY. Normal [facility] Basic metabolic 2000 panelon 10-24-2023 Anion gap [Moles/Vol] 11 mmol/L Normal 8-15 [facility] Comment on above: Order Comment: Speci men Type: BLOOD SPECIMEN Ordering Facility: [facility] Address: [address] [place] [address] Performed By: #### P TTAC, 01379-4 #### [facility] CLIA [id number] [address] [place] [address] [place] Calcium [Mass/Vol] 8.4 mg/dL Low 8.5-10.2 [facility] Comment on above: Order Comment: Speci men Type: BLOOD SPECIMEN Ordering Facility: [facility] Address: [address] [place] [address] Performed By: #### P TTAC, 63221-2 #### [facility] CLIA [id number] [address] [place] [address] [place] Chloride [Moles/Vol] 106 mmol/L Normal 98-107 [facility] Comment on above: Order Comment: Speci men Type: BLOOD SPECIMEN Ordering Facility: [facility] Address: [address] [place] [address] Performed By: #### P TTAC, 45611-5 #### [facility] CLIA [id number] [address] [place] [address] [place] CO2 [Moles/Vol] 21 mmol/L Low 22-30 [facility] Comment on above: Order Comment: Speci men Type: BLOOD SPECIMEN Ordering Facility: [facility] Address: [address] [place] [address] Performed By: #### P TTAC, 77216-3 #### [facility] CLIA [id number] [address] [place] [address] [place] Creatinine [Mass/Vol] 1.43 mg/dL High 0.73-1.22 [facility] Comment on above: Order Comment: Tiffanie rollins Type: BLOOD SPECIMEN Ordering Facility: [facility] Address: [address] [place] [address] Performed By: #### P TTAC, 64802-1 #### [facility] CLIA [id number] [address] [place] [address] [place] Creatinine and Glomerular filtration rate.predicted panel (S/P/Bld) 50 mL/min/1.73m??? Low >=60 [facility] Comment on above: Order Comment: Tiffanie rollins Type: BLOOD SPECIMEN Ordering Facility: [facility] Address: [address] [place] [address] Result Comment: Danika mated Glomerular Filtration Rate [...] actual GFR. Performed By: #### P TTAC, 93303-2 #### [facility] CLIA [id number] [address] [place] [address] [place] Glucose [Mass/Vol] 107 mg/dL High 74-99 [facility] Comment on above: Order Comment: Tiffanie rollins Type: BLOOD SPECIMEN Ordering Facility: [facility] Address: [address] [place] [address] Result Comment: The [place] [employer] (ADA) provides guidance for cutoff [...] Standards of Medical Care in Diabetes 2016, [place] [employer]. Diabetes Care. 2016.39(Suppl 1). Performed By: #### P TTAC, 83857-7 #### [facility] CLIA [id number] [place] [address] [place] Potassium [Moles/Vol] 4.0 mmol/L Normal 3.7-5.1 [facility] Comment on above: Order Comment: Speci men Type: BLOOD SPECIMEN Ordering Facility: [facility] Address: [address] [place] [address] Performed By: #### P TTAC, 56472-3 #### [facility] CLIA [id number] [place] [address] [place] Sodium [Moles/Vol] 138 mmol/L Normal 136-144 [facility] Comment on above: Order Comment: Speci men Type: BLOOD SPECIMEN Ordering Facility: [facility] Address: [address] [place] [address] Performed By: #### P TTAC, 61146-7 #### [facility] CLIA [id number] [address] [place] [address] [place] Urea nitrogen [Mass/Vol] 23 mg/dL Normal 9-24 [facility] Comment on above: Order Comment: Speci men Type: BLOOD SPECIMEN Ordering Facility: [facility] Address: [address] [place] [address] Performed By: #### P TTAC, 09983-0 #### [facility] CLIA [id number] [address] [place] [address] [place] CBC panel Auto (Bld)on 10-23 Erythrocyte distribution width (RBC) [Ratio] 14.3 % Normal 11.5-15.0 [facility] Comment on above: Order Comment: Speci men Type: BLOOD SPECIMENOrdering Facility: [facility] Address: [address] [place] [address] Performed By: #### 5 8410-2 ####[facility] [id number] [place] [address] [place] Hematocrit (Bld) [Volume fraction] 45.7 % Normal 39.0-51.0 [facility] Comment on above: Order Comment: Speci men Type: BLOOD SPECIMENOrdering Facility: [facility] Address: [address] [place] [address] Performed By: #### 5 8410-2 ####[facility] [id number] [place] [address] [place] Hemoglobin (Bld) [Mass/Vol] 15.6 g/dL Normal 13.0-17.0 [facility] Comment on above: Order Comment: Speci men Type: BLOOD SPECIMENOrdering Facility: [facility] Address: [address] [place] [address] Performed By: #### 5 8410-2 ####[facility]ORATORYCLIA [id number] [address] STATES [facility] MCH (RBC) [Entitic mass] 32.4 pg Normal 26.0-34.0 [facility] Comment on above: Order Comment: Speci men Type: BLOOD SPECIMENOrdering Facility: [facility] Address: [address] [place] [address] Performed By: #### 5 8410-2 ####[facility]ORYCLIA [id number] [address] STATES [facility] MCHC (RBC) [Mass/Vol] 34.1 g/dL Normal 30.5-36.0 [facility] Comment on above: Order Comment: Speci men Type: BLOOD SPECIMENOrdering Facility: [facility] Address: [address] [place] [address] Performed By: #### 5 8410-2 ####[facility] [id number] [address] [place] MCV (RBC) [Entitic vol] 94.8 fL Normal 80.0-100.0 [facility] Comment on above: Order Comment: Speci men Type: BLOOD SPECIMENOrdering Facility: [facility] Address: [address] [place] [address] Performed By: #### 5 8410-2 ####[facility]ORATORYCLIA [id number] [place] [address] [place] Nucleated RBC (Bld) [#/Vol] 10*3/uL Normal <0.01 [facility] Comment on above: Order Comment: Speci men Type: BLOOD SPECIMENOrdering Facility: [facility] Address: [address] [place] [address] Performed By: #### 5 8410-2 ####[facility] [id number] [place] [id number] [place] Platelet mean volume (Bld) [Entitic vol] 9.6 fL Normal 9.0-12.7 [facility] Comment on above: Order Comment: Speci men Type: BLOOD SPECIMENOrdering Facility: [facility] Address: [address] [place] [address] Performed By: #### 5 8410-2 ####[facility] [id number] [place] [address] [place] Platelets (Bld) [#/Vol] 203 10*3/uL Normal 150-400 [facility] Comment on above: Order Comment: Speci men Type: BLOOD SPECIMENOrdering Facility: [facility] Address: [address] [place] [address] Performed By: #### 5 8410-2 ####[facility] [id number] [place] [address] [place] RBC (Bld) [#/Vol] 4.82 10*6/uL Normal 4.20-6.00 [facility] Comment on above: Order Comment: Speci men Type: BLOOD SPECIMENOrdering Facility: [facility] Address: [address] [place] [address] Performed By: #### 5 8410-2 ####[facility] [id number] [place] [id number] [place] WBC (Bld) [#/Vol] 11.53 10*3/uL High 3.70-11.00 [facility] Comment on above: Order Comment: Speci men Type: BLOOD SPECIMENOrdering Facility: [facility] Address: [address] [place] [address] Performed By: #### 5 8410-2 ####[facility]ORATORYCLIA [id number] [place] [address] [place] Erythrocyte distribution width (RBC) [Ratio] 14.5 % Normal 11.5-15.0 [facility] Comment on above: Order Comment: Speci men Type: BLOOD SPECIMEN Ordering Facility: [facility] Address: [address] [place] [address] Performed By: #### P TTAC #### [facility] CLIA [id number] [address] [place] [address] [place] Hematocrit (Bld) [Volume fraction] 42.2 % Normal 39.0-51.0 [facility] Comment on above: Order Comment: Speci men Type: BLOOD SPECIMEN Ordering Facility: [facility] Address: [address] [place] [address] Performed By: #### P TTAC #### [facility] CLIA [id number] [address] [place] [address] [place] Hemoglobin (Bld) [Mass/Vol] 14.2 g/dL Normal 13.0-17.0 [facility] Comment on above: Order Comment: Speci men Type: BLOOD SPECIMEN Ordering Facility: [facility] Address: [address] [place] [address] Performed By: #### P TTAC #### [facility] CLIA [id number] [address] [place] [address] [place] MCH (RBC) [Entitic mass] 32.1 pg Normal 26.0-34.0 [facility] Comment on above: Order Comment: Speci men Type: BLOOD SPECIMEN Ordering Facility: [facility] Address: [address] [place] [address] Performed By: #### P TTAC #### [facility] CLIA [id number] [address] [place] [address] [place] MCHC (RBC) [Mass/Vol] 33.6 g/dL Normal 30.5-36.0 [facility] Comment on above: Order Comment: Speci men Type: BLOOD SPECIMEN Ordering Facility: [facility] Address: [address] [place] [address] Performed By: #### P TTAC #### [facility] CLIA [id number] [address] [place] [address] [place] MCV (RBC) [Entitic vol] 95.5 fL Normal 80.0-100.0 [facility] Comment on above: Order Comment: Speci men Type: BLOOD SPECIMEN Ordering Facility: [facility] Address: [address] [place] [address] Performed By: #### P TTAC #### [facility] CLIA [id number] [address] [place] [address] [place] Nucleated RBC (Bld) [#/Vol] 10*3/uL Normal <0.01 [facility] Comment on above: Order Comment: Speci men Type: BLOOD SPECIMEN Ordering Facility: [facility] Address: [address] [place] [address] Performed By: #### P TTAC #### [facility] CLIA [id number] [address] [place] [address] [place] Platelet mean volume (Bld) [Entitic vol] 9.8 fL Normal 9.0-12.7 [facility] Comment on above: Order Comment: Speci men Type: BLOOD SPECIMEN Ordering Facility: [facility] Address: [address] [place] [address] Performed By: #### P TTAC #### [facility] CLIA [id number] [address] [place] [address] [place] Platelets (Bld) [#/Vol] 151 10*3/uL Normal 150-400 [facility] Comment on above: Order Comment: Speci men Type: BLOOD SPECIMEN Ordering Facility: [facility] Address: [address] [place] [address] Performed By: #### P TTAC #### [facility] CLIA [id number] [address] [place] [address] [place] RBC (Bld) [#/Vol] 4.42 10*6/uL Normal 4.20-6.00 [facility] Comment on above: Order Comment: Speci men Type: BLOOD SPECIMEN Ordering Facility: [facility] Address: [address] [id number] Performed By: #### P TTAC #### [facility] CLIA [id number] [address] [place] [address] [facility] [place] WBC (Bld) [#/Vol] 10.84 10*3/uL Normal 3.70-11.00 [facility] Comment on above: Order Comment: Tiffanie rollins Type: BLOOD SPECIMEN Ordering Facility: [facility] Address: [address] [place] [address] Performed By: #### P TTAC #### [facility] CLIA [id number] CONSULT PROGon 10-24-2023 CONSULT PROG HNO ID: [id number] Author: SISSY MARTINEZ RPh Service: Pharmacy Author [...] (discussed with CHAD Ly) Additional data elements ([facility]) Is INR less than 1.7? Yes Is [...] patient received education: No Signature: Sissy Martinez [facility] Normal [facility] Gas and Carbon monoxide pane l (BldV)on 10-24-2023 BASE DEFICIT, VENOUS >-1 Normal -2-0 [facility] Comment on above: Order Comment: Tiffanie rollins Type: BLOOD SPECIMEN Ordering Facility: [facility] Address: [address] [place] [address] Performed By: #### P TTAC #### [facility] CLIA [id number] [address] [place] [address] [place] Body temperature 97.16 [degF] Normal [facility] Comment on above: Order Comment: Ruthi ria Type: BLOOD SPECIMEN Ordering Facility: [facility] Address: [address] [place] [address] Performed By: #### P TTAC #### [facility] CLIA [id number] [address] [place] [address] [place] Calcium.ionized (Bld) [Mass/Vol] 1.11 mmol/L Normal 1.08-1.30 [facility] Comment on above: Order Comment: Ruthi men Type: BLOOD SPECIMEN Ordering Facility: [facility] Address: [address] [place] [address] Performed By: #### P TTAC #### [facility] CLIA [id number] [address] [place] [address] [place] Calcium.ionized adjusted to pH 7.4 (BldA) [Moles/Vol] 1.13 mmol/L Normal 1.08-1.30 [facility] Comment on above: Order Comment: Ruthi ria Type: BLOOD SPECIMEN Ordering Facility: [facility] Address: [address] [place] [address] Performed By: #### P TTAC #### [facility] CLIA [id number] [address] [place] [address] [place] Carboxyhemoglobin (BldV) [Mass fraction] 1.8 % Normal 0.0-2.0 [facility] Comment on above: Order Comment: Speci men Type: BLOOD SPECIMEN Ordering Facility: [facility] Address: [address] [place] [address] Result Comment: Carb oxyhemoglobin Reference Range for Smokers: 2.0-8.0% Performed By: #### P TTAC #### [facility] CLIA [id number] [address] [place] [address] [place] Chloride [Moles/Vol] 111 mmol/L High 97-105 [facility] Comment on above: Order Comment: Speci men Type: BLOOD SPECIMEN Ordering Facility: [facility] Address: [address] [place] [address] Performed By: #### P TTAC #### [facility] CLIA [id number] [address] [place] [address] [place] CO2 (BldV) [Partial pressure] 35 mm[Hg] Low 42-55 [facility] Comment on above: Order Comment: Speci men Type: BLOOD SPECIMEN Ordering Facility: [facility] Address: [address] [place] [address] Performed By: #### P TTAC #### [facility] CLIA [id number] [address] [place] [address] [place] CO2 adjusted to patient's actual temperature (BldV) [Partial pressure] Normal [facility] Comment on above: Order Comment: Speci men Type: BLOOD SPECIMEN Ordering Facility: [facility] Address: [address] [place] [address] Performed By: #### P TTAC #### [facility] CLIA [id number] [address] [place] [address] [place] Glucose [Mass/Vol] 116 mg/dL High 60-105 [facility] Comment on above: Order Comment: Speci men Type: BLOOD SPECIMEN Ordering Facility: [facility] Address: [address] [place] [address] Performed By: #### P TTAC #### [facility] CLIA [id number] [address] [place] [address] [place] HCO3 (Bld) [Moles/Vol] 23 mmol/L Low 24-28 [facility] Comment on above: Order Comment: Speci men Type: BLOOD SPECIMEN Ordering Facility: [facility] Address: [address] [place] [address] Performed By: #### P TTAC #### [facility] CLIA [id number] [address] [place] [address] [place] Hematocrit (Bld) [Volume fraction] 46.1 % Normal 39.0-51.0 [facility] Comment on above: Order Comment: Speci men Type: BLOOD SPECIMEN Ordering Facility: [facility] Address: [address] [place] [address] Performed By: #### P TTAC #### [facility] CLIA [id number] [address] [place] [address] [place] Hemoglobin (Bld) [Mass/Vol] 15.1 g/dL Normal 13.0-17.0 [facility] Comment on above: Order Comment: Speci men Type: BLOOD SPECIMEN Ordering Facility: [facility] Address: [address] [place] [address] Performed By: #### P TTAC #### [facility] CLIA [id number] [address] [place] [address] [place] Lactate [Moles/Vol] 1.4 mmol/L Normal 0.5-2.2 [facility] Comment on above: Order Comment: Speci men Type: BLOOD SPECIMEN Ordering Facility: [facility] Address: [address] [place] [address] Performed By: #### P TTAC #### [facility] CLIA [id number] [address] [place] [address] [place] Methemoglobin (Bld) [Mass fraction] 0.4 % Normal 0.0-1.5 [facility] Comment on above: Order Comment: Speci men Type: BLOOD SPECIMEN Ordering Facility: [facility] Address: [address] [place] [address] Performed By: #### P TTAC #### [facility] CLIA [id number] [address] [place] [address] [place] O2 THERAPY RA=Room Air Normal [facility] Comment on above: Order Comment: Speci men Type: BLOOD SPECIMEN Ordering Facility: [facility] Address: [address] [place] [address] Performed By: #### P TTAC #### [facility] CLIA [id number] [address] [place] [address] [place] Oxygen (BldV) [Partial pressure] 153 mm[Hg] High 35-45 [facility] Comment on above: Order Comment: Speci men Type: BLOOD SPECIMEN Ordering Facility: [facility] Address: [address] [place] [address] Performed By: #### P TTAC #### [facility] CLIA [id number] [address] [place] [address] [place] Oxygen adjusted to patient's actual temperature (BldV) [Partial pressure] Normal [facility] Comment on above: Order Comment: Speci men Type: BLOOD SPECIMEN Ordering Facility: [facility] Address: [address] [place] [address] Performed By: #### P TTAC #### [facility] CLIA [id number] [address] [place] [address] [place] Oxygen saturation in Venous blood 99 % High 60-85 [facility] Comment on above: Order Comment: Speci men Type: BLOOD SPECIMEN Ordering Facility: [facility] Address: [address] [place] [address] Performed By: #### P TTAC #### [facility] CLIA [id number] [address] [place] [address] [place] Oxyhemoglobin (BldV) [Mass fraction] 97 % High 60-85 [facility] Comment on above: Order Comment: Speci men Type: BLOOD SPECIMEN Ordering Facility: [facility] Address: [address] [place] [address] Performed By: #### P TTAC #### [facility] CLIA [id number] [address] [place] [address] [place] pH (BldV) 7.44 [pH] High 7.32-7.42 [facility] Comment on above: Order Comment: Speci men Type: BLOOD SPECIMEN Ordering Facility: [facility] Address: [address] [place] [address] Performed By: #### P TTAC #### [facility] CLIA [id number] [address] [place] [address] [place] pH adjusted to patient's actual temperature (BldV) Normal [facility] Comment on above: Order Comment: Speci men Type: BLOOD SPECIMEN Ordering Facility: [facility] Address: [address] [place] [address] Performed By: #### P TTAC #### [facility] CLIA [id number] [address] [place] [address] [place] Potassium [Moles/Vol] 4.0 mmol/L Normal 3.5-5.0 [facility] Comment on above: Order Comment: Speci men Type: BLOOD SPECIMEN Ordering Facility: [facility] Address: [address] [place] [address] Performed By: #### P TTAC #### [facility] CLIA [id number] [address] [place] [address] [place] Sodium [Moles/Vol] 140 mmol/L Normal 136-144 [facility] Comment on above: Order Comment: Speci men Type: BLOOD SPECIMEN Ordering Facility: [facility] Address: [address] [place] [address] Performed By: #### P TTAC #### [facility] CLIA [id number] [address] [place] [address] [place] Magnesium SerPl-mCncon 10-23 Magnesium [Mass/Vol] 1.9 mg/dL Normal 1.7-2.3 [facility] Comment on above: Order Comment: Speci men Type: BLOOD SPECIMEN Ordering Facility: [facility] Address: [address] [place] [address] Performed By: #### P TTAC, 42494-4 #### [facility] CLIA [id number] OF [facility] NURSING PROGon 10-24-2023 NURSING PROG HNO ID: [id number] Author: ANN NGUYEN RN Service: ? Author Type: Registered Nurse Type: Nursing Progress Note Filed: 10/24/2023 17:18 Note Text: Transfer Note: PATIENT NAME: Fran Parekh Patient Location: [id number] Room: [id number] Patient transferred out to room/unit PK 2 C 28 in stable condition. Actions taken: Report given/called to CHAD Astudillo at 1710. Patient belongings with patient and patient transferred on telemetry. Normal [facility] PT panel Coag (PPP)on 2023 INR Coag (PPP) [Relative time] 1.0 {INR} Normal 0.9-1.3 [facility] Comment on above: Order Comment: Speci men Type: BLOOD SPECIMEN Ordering Facility: [facility] Address: [address] [place] [address] Result Comment: Yvonne min K Antagonist (VKA) Therapeutic Range: INR 2 to 3 (Target INR of 2.5) Note: For patients treated with VKA drugs, such as warfarin, the [place] [employer] 2012 Guideline recommends [...] GH, et al. Chest 2012, 141:7S-47S Saray WISE et al. [facility] 2017, 70: 252-289 Performed By: #### P [facility], [address]-4 #### [facility] CLIA [id number] [address] [place] [address] [place] PT Coag (PPP) [Time] 11.3 s Normal 9.7-13.0 [facility] Comment on above: Order Comment: Speci men Type: BLOOD SPECIMEN Ordering Facility: [facility] Address: [address] [place] [address] Performed By: #### P TTAC, 74640-2 #### [facility] CLIA [id number] [address] [place] [address] [place] PTT, ANTICOAGULANT THERAPYon 10-24-2023 aPTT Coag (PPP) [Time] 30.0 s Normal 23.0-32.4 [facility] Comment on above: Order Comment: Speci men Type: VENOUS BLOOD SPECIMEN Ordering Facility: [facility] Address: [address] [place] [address] Performed By: #### 2 4344-4 #### [facility] CLIA [id number] [address] [place] [address] [place] aPTT Coag (PPP) [Time] 50.7 s High 23.0-32.4 [facility] Comment on above: Order Comment: Speci men Type: BLOOD SPECIMEN Ordering Facility: [facility] Address: [address] [place] [address] Performed By: #### P TTAC, 93237-0 #### [facility] CLIA [id number] [address] [place] [address] [place] aPTT Coag (PPP) [Time] 55.2 s High 23.0-32.4 [facility] Comment on above: Order Comment: Speci men Type: VENOUS BLOOD SPECIMEN Ordering Facility: [facility] Address: [address] [place] [address] Performed By: #### 2 4344-4 #### [facility] CLIA [id number] [address] [place] [address] [place] Phosphate SerPl-mCncon 10-23 Phosphate [Mass/Vol] 3.8 mg/dL Normal 2.7-4.8 [facility] Comment on above: Order Comment: Speci men Type: BLOOD SPECIMEN Ordering Facility: [facility] Address: [address] [place] [address] Performed By: #### P [facility], 94[address]-6 #### [facility] CLIA [id number] STATES OF [facility] 10-23-2023 ALLIED HEALTH HNO ID: [id number] Author: JUAN C ESCOTO Chaplain Service: Spiritual Care Author Type: Special Education Para Professional Type: Allied Health Filed: 10/23/2023 14:11 Note Text: SPIRITUALCARE Spiritual Care Visit- Brief Note Name: Fran Parekh Date: October 23, 2023 Notes: While engaging in spiritual care rounds on the [facility] unit, I provided spiritual presence and bucolical support through empathetic care through an offer of prayers at the door. To contact the Spiritual Care Department: Please call [phone] or Page the On-Call Special Education Para Professional at pager [phone]. Thank you for the opportunity to be of service. SIGNATURE: Chaplain Alphonse PATIENT NAME: Fran Parekh DATE: October 23, 2023 TIME: 10:00 AM This is an electronically created document. IF PRINTED, PLEASE DO NOT REMOVE FROM THE CHART OR MODIFY PRINTED COPY. Normal [facility] HNO ID: [id number] Author: PATY GUZMAN RDMS Service: Radiology Author Type: Technologist Type: Allied Health Filed: 10/23/2023 03:21 Note Text: Radiology Service [...] PATIENT PRESENTS WITH AN IMPLANTABLE OR ATTACHED LOAD BUILDER: No RADIOLOGY DEPARTMENT: Ultrasound PERIPHERAL IV DATA: Not applicable SIGNED BY: PATY GUZMAN RDMS October 23, 2023 3:21 AM Normal [facility] ALLIED HEALTH HNO ID: [id number] Author: CARRINGTON LAWS RT(R) Service: Radiology Author Type: Technologist Type: Allied Health Filed: 10/23/2023 02:45 Note Text: Radiology Service [...] PATIENT PRESENTS WITH AN IMPLANTABLE OR ATTACHED LOAD BUILDER: No RADIOLOGY DEPARTMENT: General X-ray: Exam(s) Completed: Chest X-Ray PERIPHERAL IV DATA: Not applicable SIGNED BY: RT Sindy(R) October 23, 2023 2:45 AM [facility] CBC panel Auto (Bld)on 10-22 Erythrocyte distribution width (RBC) [Ratio] 14.4 % Normal 11.5-15.0 [facility] Comment on above: Order Comment: Tiffanie rollins Type: BLOOD SPECIMEN Ordering Facility: [facility] Address: [address] [place] [address] Performed By: #### P TTAC #### [facility] CLIA [id number] [address] [place] [address] [place] Hematocrit (Bld) [Volume fraction] 42.6 % Normal 39.0-51.0 [facility] Comment on above: Order Comment: Tiffanie rollins Type: BLOOD SPECIMEN Ordering Facility: [facility] Address: [address] [place] [address] Performed By: #### P TTAC #### [facility] CLIA [id number] [address] [place] [address] [place] Hemoglobin (Bld) [Mass/Vol] 14.5 g/dL Normal 13.0-17.0 [facility] Comment on above: Order Comment: Speci men Type: BLOOD SPECIMEN Ordering Facility: [facility] Address: [address] [place] [address] Performed By: #### P TTAC #### [facility] CLIA [id number] [address] [place] [address] [place] MCH (RBC) [Entitic mass] 32.7 pg Normal 26.0-34.0 [facility] Comment on above: Order Comment: Speci men Type: BLOOD SPECIMEN Ordering Facility: [facility] Address: [address] [place] [address] Performed By: #### P TTAC #### [facility] CLIA [id number] [address] [place] [address] [place] MCHC (RBC) [Mass/Vol] 34.0 g/dL Normal 30.5-36.0 [facility] Comment on above: Order Comment: Speci men Type: BLOOD SPECIMEN Ordering Facility: [facility] Address: [address] [place] [address] Performed By: #### P TTAC #### [facility] CLIA [id number] [address] [place] [address] [place] MCV (RBC) [Entitic vol] 96.2 fL Normal 80.0-100.0 [facility] Comment on above: Order Comment: Speci men Type: BLOOD SPECIMEN Ordering Facility: [facility] Address: [address] [place] [address] Performed By: #### P TTAC #### [facility] CLIA [id number] [address] [place] [address] [place] Nucleated RBC (Bld) [#/Vol] 10*3/uL Normal <0.01 [facility] Comment on above: Order Comment: Speci men Type: BLOOD SPECIMEN Ordering Facility: [facility] Address: [address] [place] [address] Performed By: #### P TTAC #### [facility] CLIA [id number] [address] [place] [address] [place] Platelet mean volume (Bld) [Entitic vol] 10.1 fL Normal 9.0-12.7 [facility] Comment on above: Order Comment: Speci men Type: BLOOD SPECIMEN Ordering Facility: [facility] Address: [address] [place] [address] Performed By: #### P TTAC #### [facility] CLIA [id number] [address] [place] [address] [place] Platelets (Bld) [#/Vol] 184 10*3/uL Normal 150-400 [facility] Comment on above: Order Comment: Speci men Type: BLOOD SPECIMEN Ordering Facility: [facility] Address: [address] [place] [address] Performed By: #### P TTAC #### [facility] CLIA [id number] [address] [place] [address] [place] RBC (Bld) [#/Vol] 4.43 10*6/uL Normal 4.20-6.00 [facility] Comment on above: Order Comment: Speci men Type: BLOOD SPECIMEN Ordering Facility: [facility] Address: [address] [place] [address] Performed By: #### P TTAC #### [facility] CLIA [id number] [address] [place] [address] [place] WBC (Bld) [#/Vol] 9.53 10*3/uL Normal 3.70-11.00 [facility] Comment on above: Order Comment: Speci men Type: BLOOD SPECIMEN Ordering Facility: [facility] Address: [address] [place] [address] Performed By: #### P TTAC #### [facility] CLIA [id number] [address] [place] [address] [place] Comp Metab 2000 Pnl SerPlon 10-23-2023 Sodium [Moles/Vol] 143 mmol/L Normal 136-144 [facility] Comment on above: Order Comment: Speci men Type: BLOOD SPECIMEN Ordering Facility: [facility] Address: [address] [place] [address] Performed By: #### 3 3959-8, 3016-3, 35367-2, 94955-2 #### [facility] CLIA [id number] [address] [place] [address] [place] [facility] Order Comment: Speci men Type: VENOUS BLOOD SPECIMEN Ordering Facility: [facility] Address: [address] [place] [address] Performed By: #### 2 4344-4 #### [facility] CLIA [id number] [address] [place] [address] [place] Comprehensive metabolic 2000 panelon 10-23-2023 Albumin [Mass/Vol] 3.2 g/dL Low 3.9-4.9 [facility] Comment on above: Order Comment: Speci men Type: BLOOD SPECIMEN Ordering Facility: [facility] Address: [address] [place] [address] Performed By: #### 3 3959-8, 3016-3, 61027-8, 23291-9 #### [facility] CLIA [id number] [address] [place] [address] [place] ALP [Catalytic activity/Vol] 75 U/L Normal 38-113 [facility] Comment on above: Order Comment: Speci men Type: BLOOD SPECIMEN Ordering Facility: [facility] Address: [address] [place] [address] Performed By: #### 3 3959-8, 3016-3, 14720-4, 74932-6 #### [facility] CLIA [id number] [address] [place] [address] [place] ALT [Catalytic activity/Vol] 18 U/L Normal 10-54 [facility] Comment on above: Order Comment: Speci men Type: BLOOD SPECIMEN Ordering Facility: [facility] Address: [address] [place] [address] Performed By: #### 3 3959-8, 3016-3, 03159-6, 65232-4 #### [facility] CLIA [id number] [place] [address] [place] Anion gap [Moles/Vol] 11 mmol/L Normal 8-15 [facility] Comment on above: Order Comment: Speci men Type: BLOOD SPECIMEN Ordering Facility: [facility] Address: [address] [place] [address] Performed By: #### 3 3959-8, 3016-3, 04726-0, 40688-4 #### [facility] CLIA [id number] [address] [place] [address] [place] AST [Catalytic activity/Vol] 19 U/L Normal 14-40 [facility] Comment on above: Order Comment: Speci men Type: BLOOD SPECIMEN Ordering Facility: [facility] Address: [address] [place] [address] Performed By: #### 3 3959-8, 3016-3, 96315-4, 11704-4 #### [facility] CLIA [id number] [address] [place] [address] [place] Bilirubin [Mass/Vol] 0.5 mg/dL Normal 0.2-1.3 [facility] Comment on above: Order Comment: Speci men Type: BLOOD SPECIMEN Ordering Facility: [facility] Address: [address] [place] [address] Performed By: #### 3 3959-8, 3016-3, 15004-9, 25703-7 #### [facility] CLIA [id number] [address] [place] [address] [place] Calcium [Mass/Vol] 8.5 mg/dL Normal 8.5-10.2 [facility] Comment on above: Order Comment: Speci men Type: BLOOD SPECIMEN Ordering Facility: [facility] Address: [address] [place] [address] Performed By: #### 3 3959-8, 3016-3, 00268-5, 48755-9 #### [facility] CLIA [id number] [address] [place] [address] [place] Chloride [Moles/Vol] 108 mmol/L High 98-107 [facility] Comment on above: Order Comment: Speci men Type: BLOOD SPECIMEN Ordering Facility: [facility] Address: [address] [place] [address] Performed By: #### 3 3959-8, 3016-3, 49638-1, 32952-4 #### [facility] CLIA [id number] [address] [place] [id number] [place] CO2 [Moles/Vol] 24 mmol/L Normal 22-30 [facility] Comment on above: Order Comment: Speci men Type: BLOOD SPECIMEN Ordering Facility: [facility] Address: [address] [place] [address] Performed By: #### 3 3959-8, 3016-3, 89661-9, 55648-4 #### [facility] CLIA [id number] [place] [address] [place] Creatinine [Mass/Vol] 1.51 mg/dL High 0.73-1.22 [facility] Comment on above: Order Comment: Speci men Type: BLOOD SPECIMEN Ordering Facility: [facility] Address: [address] [place] [address] Performed By: #### 3 3959-8, 3016-3, 15624-8, #### [facility] CLIA [id number] [place] [address] [place] Creatinine and Glomerular filtration rate.predicted panel (S/P/Bld) 47 mL/min/1.73m??? Low >=60 [facility] Comment on above: Order Comment: Speci men Type: BLOOD SPECIMEN Ordering Facility: [facility] Address: [address] [place] [address] Result Comment: Danika mated Glomerular Filtration Rate [...] GFR. Performed By: #### 3 3959-8, 3016-3, 98997-1, 24615-7 #### [facility] CLIA [id number] [address] [place] [address] [place] Glucose [Mass/Vol] 137 mg/dL High 74-99 [facility] Comment on above: Order Comment: Tiffanie rollins Type: BLOOD SPECIMEN Ordering Facility: [facility] Address: [address] [place] [address] Result Comment: The [place] Diabetes Association (ADA) provides guidance for cutoff [...] Standards of Medical Care in Diabetes 2016, [place] [employer]. Diabetes Care. 2016.39(Suppl 1). Performed By: #### 3 3959-8, 3016-3, 02876-1, 36056-5 #### [facility] CLIA [id number] [address] [place] [address] [place] Potassium [Moles/Vol] 4.2 mmol/L Normal 3.7-5.1 [facility] Comment on above: Order Comment: Tiffanie rollins Type: BLOOD SPECIMEN Ordering Facility: [facility] Address: [address] [place], [place] [address] Performed By: #### 3 3959-8, 3016-3, 62740-1, 71177-6 #### [facility] CLIA [id number] [address] [place] [address] [place] Protein [Mass/Vol] 5.9 g/dL Low 6.3-8.0 [facility] Comment on above: Order Comment: Tiffanie rollins Type: BLOOD SPECIMEN Ordering Facility: [facility] Address: [address] [place] [address] Performed By: #### 3 3959-8, 3016-3, 89149-9, 49118-9 #### [facility] CLIA [id number] [place] [address] [place] Urea nitrogen [Mass/Vol] 24 mg/dL Normal 01-22 [facility] Comment on above: Order Comment: Speci men Type: BLOOD SPECIMEN Ordering Facility: [facility] Address: [place] [address] Performed By: #### 3 3959-8, 3016-3, 42107-2, 47868-0 #### [facility] CLIA [id number] STATES OF [facility] ECHOon 10-23-2023 Echocardiography Echocardiography Rep ort: Transthoracic Echo [facility] Date of service: 10/23/2023 10:14:42 AM Ordering physician: DONN RODRIGUEZ Indication: Acute pulmonary embolism to guide therapy Technologist: Judith Tarango RDCS Interpreting physician: Brian Hall MD PATIENT: Name: [...] * * Final (Updated) * * * [facility] : [id number] 17[employer]ngoDynamicsSISUID Normal [facility] FLUABV+SARS-CoV-2+RSV Pnl Re sp DANNIELLE+probeon 10-23-2023 FLUABV+SARS-CoV-2+RSV Pnl Resp DANNIELLE+probe COVID 19 RESULT: Not detected The method used is RT-PCR or an equivalent NAAT method. Reference Range(the expected result in uninfected individuals): Not detected INFLUENZA A PCR: Not detected INFLUENZA B PCR: Not detected RSV PCR: Not detected Normal [facility] Comment on above: Performed By: #### 9 5941-1 ####[facility] [id number] [place] [address] [place] Fibrinogen PPP-mCncon 2023 Fibrinogen Coag (PPP) [Mass/Vol] 327 mg/dL Normal 200-400 [facility] Comment on above: Order Comment: Speci men Type: BLOOD SPECIMENOrdering Facility: [facility] Address: [address] [place] [address] Performed By: #### P [facility], 3255-7 ####[facility] [id number] [place] [address] [place] Gas and Carbon monoxide pane l (BldV)on 10-23-2023 Base excess Calc (BldV) [Moles/Vol] 0 mmol/L Normal 0-2 [facility] Comment on above: Order Comment: Speci men Type: VENOUS BLOOD SPECIMEN Ordering Facility: [facility] Address: [address] [place] [address] Performed By: #### 2 4344-4 #### [facility] CLIA [id number] [address] [place] [address] [place] Body temperature 98.06 [degF] Normal [facility] Comment on above: Order Comment: Speci men Type: VENOUS BLOOD SPECIMEN Ordering Facility: [facility] Address: [address] [place] [address] Performed By: #### 2 4344-4 #### [facility] CLIA [id number] [address] [place] [address] [place] Calcium.ionized (Bld) [Mass/Vol] 1.05 mmol/L Low 1.08-1.30 [facility] Comment on above: Order Comment: Speci men Type: VENOUS BLOOD SPECIMEN Ordering Facility: [facility] Address: [address] [place] [address] Performed By: #### 2 4344-4 #### [facility] CLIA [id number] [address] [place] [address] [place] Calcium.ionized adjusted to pH 7.4 (BldA) [Moles/Vol] 1.09 mmol/L Normal 1.08-1.30 [facility] Comment on above: Order Comment: Speci men Type: VENOUS BLOOD SPECIMEN Ordering Facility: [facility] Address: [address] [place] [address] Performed By: #### 2 4344-4 #### [facility] CLIA [id number] [address] [place] [address] [place] Carboxyhemoglobin (BldV) [Mass fraction] 2.4 % High 0.0-2.0 [facility] Comment on above: Order Comment: Speci men Type: VENOUS BLOOD SPECIMEN Ordering Facility: [facility] Address: [address] [place] [address] Result Comment: Carb oxyhemoglobin Reference Range for Smokers: 2.0-8.0% Performed By: #### 2 4344-4 #### [facility] CLIA [id number] [address] [place] [address] [place] Chloride [Moles/Vol] 114 mmol/L High 97-105 [facility] Comment on above: Order Comment: Speci men Type: VENOUS BLOOD SPECIMEN Ordering Facility: [facility] Address: [address] [place] [address] Performed By: #### 2 4344-4 #### [facility] CLIA [id number] [address] [place] [address] [place] CO2 (BldV) [Partial pressure] 32 mm[Hg] Low 42-55 [facility] Comment on above: Order Comment: Speci men Type: VENOUS BLOOD SPECIMEN Ordering Facility: [facility] Address: [address] [place] [address] Performed By: #### 2 4344-4 #### [facility] CLIA [id number] [address] [place] [address] [place] CO2 adjusted to patient's actual temperature (BldV) [Partial pressure] Normal [facility] Comment on above: Order Comment: Speci men Type: VENOUS BLOOD SPECIMEN Ordering Facility: [facility] Address: [address] [place] [address] Performed By: #### 2 4344-4 #### [facility] CLIA [id number] [address] [place] [address] [place] Glucose [Mass/Vol] 125 mg/dL High 60-105 [facility] Comment on above: Order Comment: Speci men Type: VENOUS BLOOD SPECIMEN Ordering Facility: [facility] Address: [address] [place] [address] Performed By: #### 2 4344-4 #### [facility] CLIA [id number] [address] [place] [address] [place] HCO3 (Bld) [Moles/Vol] 23 mmol/L Low 24-28 [facility] Comment on above: Order Comment: Speci men Type: VENOUS BLOOD SPECIMEN Ordering Facility: [facility] Address: [address] [place] [address] Performed By: #### 2 4344-4 #### [facility] CLIA [id number] [address] [place] [address] [place] Hematocrit (Bld) [Volume fraction] 46.3 % Normal 39.0-51.0 [facility] Comment on above: Order Comment: Speci men Type: VENOUS BLOOD SPECIMEN Ordering Facility: [facility] Address: [address] [place] [address] Performed By: #### 2 4344-4 #### [facility] CLIA [id number] [address] [place] [address] [place] Hemoglobin (Bld) [Mass/Vol] 15.1 g/dL Normal 13.0-17.0 [facility] Comment on above: Order Comment: Speci men Type: VENOUS BLOOD SPECIMEN Ordering Facility: [facility] Address: [address] [place] [address] Performed By: #### 2 4344-4 #### [facility] CLIA [id number] [address] [place] [address] [place] Lactate [Moles/Vol] 2.1 mmol/L Normal 0.5-2.2 [facility] Comment on above: Order Comment: Speci men Type: VENOUS BLOOD SPECIMEN Ordering Facility: [facility] Address: [address] [place] [address] Performed By: #### 2 4344-4 #### [facility] CLIA [id number] [address] [place] [address] [place] Methemoglobin (Bld) [Mass fraction] 0.8 % Normal 0.0-1.5 [facility] Comment on above: Order Comment: Speci men Type: VENOUS BLOOD SPECIMEN Ordering Facility: [facility] Address: [address] [place] [address] Performed By: #### 2 4344-4 #### [facility] CLIA [id number] [address] [place] [address] OF [place] O2 THERAPY RA=Room Air Normal [facility] Comment on above: Order Comment: Speci men Type: VENOUS BLOOD SPECIMEN Ordering Facility: [facility] Address: [address] [place] [address] Performed By: #### 2 4344-4 #### [facility] CLIA [id number] [address] [place] [address] [place] Oxygen (BldV) [Partial pressure] 70 mm[Hg] High 35-45 [facility] Comment on above: Order Comment: Speci men Type: VENOUS BLOOD SPECIMEN Ordering Facility: [facility] Address: [address] [place] [address] Performed By: #### 2 4344-4 #### [facility] CLIA [id number] [address] [place] [address] [place] Oxygen adjusted to patient's actual temperature (BldV) [Partial pressure] Normal [facility] Comment on above: Order Comment: Speci men Type: VENOUS BLOOD SPECIMEN Ordering Facility: [facility] Address: [address] [place] [address] Performed By: #### 2 4344-4 #### [facility] CLIA [id number] [address] [place] [address] [place] Oxygen saturation in Venous blood 94 % High 60-85 [facility] Comment on above: Order Comment: Speci men Type: VENOUS BLOOD SPECIMEN Ordering Facility: [facility] Address: [address] [place] [address] Performed By: #### 2 4344-4 #### [facility] CLIA [id number] [address] [place] [address] [place] Oxyhemoglobin (BldV) [Mass fraction] 91 % High 60-85 [facility] Comment on above: Order Comment: Speci men Type: VENOUS BLOOD SPECIMEN Ordering Facility: [facility] Address: [address] [place] [address] Performed By: #### 2 4344-4 #### [facility] CLIA [id number] [address] [place] [address] [place] pH (BldV) 7.47 [pH] High 7.32-7.42 [facility] Comment on above: Order Comment: Speci men Type: VENOUS BLOOD SPECIMEN Ordering Facility: [facility] Address: [address] [place] [address] Performed By: #### 2 4344-4 #### [facility] CLIA [id number] [address] [place] [address] [place] pH adjusted to patient's actual temperature (BldV) Normal [facility] Comment on above: Order Comment: Speci men Type: VENOUS BLOOD SPECIMEN Ordering Facility: [facility] Address: [address] [place] [address] Performed By: #### 2 4344-4 #### [facility] CLIA [id number] [address] [place] [address] [place] Potassium [Moles/Vol] 3.8 mmol/L Normal 3.5-5.0 [facility] Comment on above: Order Comment: Speci men Type: VENOUS BLOOD SPECIMEN Ordering Facility: [facility] Address: [address] [place] [address] Performed By: #### 2 4344-4 #### [facility] CLIA [id number] [address] [place] [address] [place] Sodium [Moles/Vol] 140 mmol/L Normal 136-144 [facility] Comment on above: Order Comment: Speci men Type: VENOUS BLOOD SPECIMEN Ordering Facility: [facility] Address: [address] [place] [address] Performed By: #### 2 4344-4 #### [facility] CLIA [id number] [address] [place] [address] [place] Base excess Calc (BldV) [Moles/Vol] 0 mmol/L Normal 0-2 [facility] Comment on above: Order Comment: Speci men Type: VENOUS BLOOD SPECIMEN Ordering Facility: [facility] Address: [address] [place] [address] Performed By: #### 2 4344-4 #### [facility] CLIA [id number] [address] [place] [address] [place] Body temperature 98.06 [degF] Normal [facility] Comment on above: Order Comment: Speci men Type: VENOUS BLOOD SPECIMEN Ordering Facility: [facility] Address: [address] [place] [address] Performed By: #### 2 4344-4 #### [facility] CLIA [id number] [address] [place] [address] [place] Calcium.ionized (Bld) [Mass/Vol] 1.14 mmol/L Normal 1.08-1.30 [facility] Comment on above: Order Comment: Speci men Type: VENOUS BLOOD SPECIMEN Ordering Facility: [facility] Address: [address] [place] [address] Performed By: #### 2 4344-4 #### [facility] CLIA [id number] [address] [place] [address] [place] Calcium.ionized adjusted to pH 7.4 (BldA) [Moles/Vol] 1.11 mmol/L Normal 1.08-1.30 [facility] Comment on above: Order Comment: Speci men Type: VENOUS BLOOD SPECIMEN Ordering Facility: [facility] Address: [address] [place] [address] Performed By: #### 2 4344-4 #### [facility] CLIA [id number] [address] [place] [address] [place] Carboxyhemoglobin (BldV) [Mass fraction] 2.0 % Normal 0.0-2.0 [facility] Comment on above: Order Comment: Speci men Type: VENOUS BLOOD SPECIMEN Ordering Facility: [facility] Address: [address] [place] [address] Result Comment: Carb oxyhemoglobin Reference Range for Smokers: 2.0-8.0% Performed By: #### 2 4344-4 #### [facility] CLIA [id number] [address] [place] [address] [place] Chloride [Moles/Vol] 111 mmol/L High 97-105 [facility] Comment on above: Order Comment: Speci men Type: VENOUS BLOOD SPECIMEN Ordering Facility: [facility] Address: [address] [place] [address] Performed By: #### 2 4344-4 #### [facility] CLIA [id number] [address] [place] [address] [place] CO2 (BldV) [Partial pressure] 48 mm[Hg] Normal 42-55 [facility] Comment on above: Order Comment: Speci men Type: VENOUS BLOOD SPECIMEN Ordering Facility: [facility] Address: [address] [place] [address] Performed By: #### 2 4344-4 #### [facility] CLIA [id number] [address] [place] [address] [place] CO2 adjusted to patient's actual temperature (BldV) [Partial pressure] Normal [facility] Comment on above: Order Comment: Speci men Type: VENOUS BLOOD SPECIMEN Ordering Facility: [facility] Address: [address] [place] [address] Performed By: #### 2 4344-4 #### [facility] CLIA [id number] [address] [place] [address] [place] Glucose [Mass/Vol] 145 mg/dL High 60-105 [facility] Comment on above: Order Comment: Speci men Type: VENOUS BLOOD SPECIMEN Ordering Facility: [facility] Address: [address] [place] [address] Performed By: #### 2 4344-4 #### [facility] CLIA [id number] [address] [place] [address] [place] HCO3 (Bld) [Moles/Vol] 26 mmol/L Normal 24-28 [facility] Comment on above: Order Comment: Speci men Type: VENOUS BLOOD SPECIMEN Ordering Facility: [facility] Address: [address] [place] [address] Performed By: #### 2 4344-4 #### [facility] CLIA [id number] [address] [place] [address] [place] Hematocrit (Bld) [Volume fraction] 44.8 % Normal 39.0-51.0 [facility] Comment on above: Order Comment: Speci men Type: VENOUS BLOOD SPECIMEN Ordering Facility: [facility] Address: [address] [place] [address] Performed By: #### 2 4344-4 #### [facility] CLIA [id number] [address] [place] [address] [place] Hemoglobin (Bld) [Mass/Vol] 14.6 g/dL Normal 13.0-17.0 [facility] Comment on above: Order Comment: Speci men Type: VENOUS BLOOD SPECIMEN Ordering Facility: [facility] Address: [address] [place] [address] Performed By: #### 2 4344-4 #### [facility] CLIA [id number] [address] [place] [address] [place] Lactate [Moles/Vol] 2.7 mmol/L High 0.5-2.2 [facility] Comment on above: Order Comment: Speci men Type: VENOUS BLOOD SPECIMEN Ordering Facility: [facility] Address: [address] [place] [address] Performed By: #### 2 4344-4 #### [facility] CLIA [id number] [address] [place] [address] [place] LITERS 2 Liters/min Normal [facility] Comment on above: Order Comment: Speci men Type: VENOUS BLOOD SPECIMEN Ordering Facility: [facility] Address: [address] [place] [address] Performed By: #### 2 4344-4 #### [facility] CLIA [id number] [address] [place] [address] [place] Methemoglobin (Bld) [Mass fraction] 0.5 % Normal 0.0-1.5 [facility] Comment on above: Order Comment: Speci men Type: VENOUS BLOOD SPECIMEN Ordering Facility: [facility] Address: [address] [place] [address] Performed By: #### 2 4344-4 #### [facility] CLIA [id number] [address] [place] [address] [place] O2 THERAPY NC = Nasal Cannula Normal [facility] Comment on above: Order Comment: Speci men Type: VENOUS BLOOD SPECIMEN Ordering Facility: [facility] Address: [address] [place] [address] Performed By: #### 2 4344-4 #### [facility] CLIA [id number] [address] [place] [address] [place] Oxygen (BldV) [Partial pressure] 51 mm[Hg] High 35-45 [facility] Comment on above: Order Comment: Speci men Type: VENOUS BLOOD SPECIMEN Ordering Facility: [facility] Address: [address] [place] [address] Performed By: #### 2 4344-4 #### [facility] CLIA [id number] [address] [place] [address] [place] Oxygen adjusted to patient's actual temperature (BldV) [Partial pressure] Normal [facility] Comment on above: Order Comment: Speci men Type: VENOUS BLOOD SPECIMEN Ordering Facility: [facility] Address: [address] [place] [address] Performed By: #### 2 4344-4 #### [facility] CLIA [id number] [address] [place] [address] [place] Oxygen saturation in Venous blood 82 % Normal 60-85 [facility] Comment on above: Order Comment: Speci men Type: VENOUS BLOOD SPECIMEN Ordering Facility: [facility] Address: [address] [place] [address] Performed By: #### 2 4344-4 #### [facility] CLIA [id number] [address] [place] [address] [place] Oxyhemoglobin (BldV) [Mass fraction] 80 % Normal 60-85 [facility] Comment on above: Order Comment: Speci men Type: VENOUS BLOOD SPECIMEN Ordering Facility: [facility] Address: [address] [place] [address] Performed By: #### 2 4344-4 #### [facility] CLIA [id number] [address] [place] [address] [place] pH (BldV) 7.35 [pH] Normal 7.32-7.42 [facility] Comment on above: Order Comment: Speci men Type: VENOUS BLOOD SPECIMEN Ordering Facility: [facility] Address: [address] [place] [address] Performed By: #### 2 4344-4 #### [facility] CLIA [id number] [address] [place] [address] [place] pH adjusted to patient's actual temperature (BldV) Normal [facility] Comment on above: Order Comment: Tiffanie rollins Type: VENOUS BLOOD SPECIMEN Ordering Facility: [facility] Address: [address] [place] [address] Performed By: #### 2 4344-4 #### [facility] CLIA [id number] [address] [place] [address] [place] Potassium [Moles/Vol] 4.0 mmol/L Normal 3.5-5.0 [facility] Comment on above: Order Comment: Tiffanie rollins Type: VENOUS BLOOD SPECIMEN Ordering Facility: [facility] Address: [address] [place] [address] Performed By: #### 2 4344-4 #### [facility] CLIA [id number] [address] [place] [address] [place] HIGH SENSITIVITY TROPONIN To n 10-23-2023 Troponin T.cardiac High sensitivity method [Mass/Vol] 43 ng/L High <12 [facility] Comment on above: Order Comment: Tiffanie rollins Type: BLOOD SPECIMEN Ordering Facility: [facility] Address: [address] [place] [address] Result Comment: When assessing risk for acute [...] 30 day MACE. Performed By: #### P TTA #### [facility] CLIA [id number] [address] [place] [address] [place] Troponin T.cardiac High sensitivity method [Mass/Vol] 52 ng/L High <12 [facility] Comment on above: Order Comment: Tiffanie ria Type: BLOOD SPECIMEN Ordering Facility: [facility] Address: [address] [place] [address] Result Comment: When assessing risk for acute [...] 30 day MACE. Performed By: #### P [facility], [address]-9 #### [facility] CLIA [id number] [address] [place] [address] [place] HISTORY PHYSICALon HISTORY PHYSICAL HNO ID: [id number] Author: DONN RODRIGUEZ MD Service: Critical Care Author Type: Physician Type: H&P Filed: 10/23/2023 06:48 Note Text: [facility] SERVICE DATE: 10/23/2023 SERVICE TIME: 224 Admission Date: 10/23/2023 Subjective HPI: This is a 78 year old with acute saddle pulmonary embolus. His past medical history significant for angina, hypertension, hyperlipidemia, hypothyroid, obstructive sleep apnea, prediabetes, CKD. He presented to [facility] ED reporting dizziness and lightheadedness. He did [...] on heparin drip. He was transferred to [facility] ICU. He is hemodynamically stable upon [...] of skin of nose Dr. 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 Mask per preference, tubing, filters, humidity. Lifetime Supplies. Dx: G47.33. Fax 30 day compliance report to [phone]., Disp: 1 Each, Rfl: 999 CPAP, Please [...] daily., Di (more content not included)... Normal [facility] HbA1c (Bld)on 10-23-2023 Average glucose Estimated from glycated hemoglobin (Bld) [Mass/Vol] 128 mg/dL Normal [facility] Comment on above: Order Comment: [facility] Type: BLOOD SPECIMENOrdering Facility: [facility] Address: [address] [place] [address] Result Comment: eAG: (Estimated average glucose) is a calculated value from HgbA1c and is passenger service representative of the average blood glucose level in the last 2-3 month period. Performed By: #### 5 5454-3 ####[facility] LABCLIA [id number] [facility] [id number] [place] [address] [place] HbA1c (Bld) [Mass fraction] 6.1 % High 4.3-5.6 [facility] Comment on above: Order Comment: [facility] Type: BLOOD SPECIMENOrdering Facility: [facility] Address: [address] [place] [address] Result Comment: Amer [place] Diabetes Association guidelines indicate that patients with HgbA1c in the range 5.7-6.4% are at increased risk for development of diabetes, and intervention by lifestyle modification may be beneficial. HgbA1c greater or equal to 6.5% is considered diagnostic of diabetes. Performed By: #### 5 5454-3 ####[facility] LABCLIA [id number] [facility] [id number] [address] [place] Magnesium [facility] 10-22 Magnesium [Mass/Vol] 1.8 mg/dL Normal 1.7-2.3 [facility] Comment on above: Order Comment: Tiffanie rollins Type: BLOOD SPECIMEN [facility] Address: [address] [place] [address] Performed By: #### 3 3959-8, 3016-3, 97665-3, 12998-9 #### [facility] CLIA [id number] [address] [place] [address] [place] NT-proBNP [facility] 10-22 Natriuretic peptide.B prohormone N-Terminal [Mass/Vol] 2953 pg/mL High <450 [facility] Comment on above: Order Comment: Tiffanie rollins Type: BLOOD SPECIMEN [facility] Address: [address] [place] [address] Performed By: #### P [facility], 04390-5 #### [facility] CLIA [id number] [address] [place] [address] [place] PT panel Coag (PPP)on 2023 INR Coag (PPP) [Relative time] 1.0 {INR} Normal 0.9-1.3 [facility] Comment on above: Order Comment: Tiffanie rollins Type: VENOUS BLOOD SPECIMEN [facility] Address: [address] [place] [address] Result Comment: Yvonne min K Antagonist (VKA) Therapeutic Range: INR 2 to 3 (Target INR of 2.5) Note: For patients treated with VKA drugs, such as warfarin, the [place] [employer] 2012 Guideline recommends [...] Chest 2012, 141:7S-47S Saray RA, et al. [facility] 2017, 70: 252-289 Performed By: #### 2 4344-4 #### [facility] CLIA [id number] [address] [place] [address] [place] PT Coag (PPP) [Time] 10.8 s Normal 9.7-13.0 [facility] Comment on above: Order Comment: Tiffanie rollins Type: VENOUS BLOOD SPECIMEN [facility] Address: [address] [place] [address] Performed By: #### 2 4344-4 #### [facility] CLIA [id number] [address] [place] [address] [place] PTT, ANTICOAGULANT THERAPYon 10-23-2023 aPTT Coag (PPP) [Time] 108.8 s High 23.0-32.4 [facility] Comment on above: Order Comment: Tiffanie rollins Type: BLOOD SPECIMENOrdering Facility: [facility] Address: [address] [place] [address] Performed By: #### P TTAC ####[facility]ORATORYCLIA [id number] [address] [place] aPTT Coag (PPP) [Time] 100.7 s High 23.0-32.4 [facility] Comment on above: Order Comment: Tiffanie rollins Type: BLOOD SPECIMENOrdering Facility: [facility] Address: [address] [place] [address] Performed By: #### P TTAC, 3255-7 ####[facility] [id number] [place] [address] [place] aPTT Coag (PPP) [Time] 42.3 s High 23.0-32.4 [facility] Comment on above: Order Comment: Speci men Type: VENOUS BLOOD SPECIMEN [facility] Address: [address] [place] [address] Performed By: #### 2 4344-4 #### [facility] CLIA [id number] [address] [place] [address] [place] Procalcitonin SerPl-mCncon 0 10-23-2023 Procalcitonin [Mass/Vol] 0.07 ng/mL Normal <0.09 [facility] Comment on above: Order Comment: Speci men Type: BLOOD SPECIMEN [facility] Address: [address] [place] [address] Result Comment: For a guided interpretation of test results, please visit the Change in Procalcitonin Calculator, [email or web address]. Performed By: #### 3 3959-8, 3016-3, 78640-2, 92477-5 #### [facility] CLIA [id number] [address] [place] [address] [place] STAPHYLOCOCCUS AUREUS AND MR SA SCREEN, PCR, NASALon 10-23-2023 S. aureus and MRSA panel DANNIELLE+probe (Nose) Not detected Normal Not Detected [facility] Comment on above: Order Comment: Speci men Type: BLOOD SPECIMEN [facility] Address: [address] [place] [address] Performed By: #### P TTAC #### [facility] CLIA [id number] [address] [place] [address] [place] TSH SerPl-aCncon 10-23-2023 TSH Qn 4.860 m[IU]/L High 0.270-4.20 0 [facility] Comment on above: Order Comment: Speci men Type: BLOOD SPECIMEN [facility] Address: [address] [place] [address] Performed By: #### 3 3959-8, 3016-3, 87652-4, 79957-9 #### [facility] [id number] [address] [place] [address] [place] US DVT LOWER BILon US DVT LOWER DELMI * * *Final [...] AM via verbal communication. --END OF FINDING-- Software Packager: WILNER Transcribe Date/Time: Oct 23 2023 3:53A Dictated by : ALETHEA BREWSTER MD This examination was interpreted and the report reviewed and electronically signed by: ALETHEA BREWSTER MD on Oct 23 2023 4:14AM EST [id number] [facility] XR CHEST 1V FRONTAL PORTon 0 [...] No evidence of an acute cardiopulmonary process. Software Packager: WILNER Transcribe Date/Time: Oct 23 2023 3:19A Dictated by : AVRIL CARMEN MD This examination was interpreted and the report reviewed and electronically signed by: AVRIL CARMEN MD on Oct 23 2023 3:19AM EST [id number] [facility] XR Lumbar spine 3 Viewson IMPRESSION: DEGENERATIVE CHANGES DESCRIBED Software Packager: WILNER Transcribe Date/Time: May 15 2023 12:57P Dictated by : BAKARI MYERS MD This examination was interpreted and the report reviewed and electronically signed by: BAKARI MYERS MD on May 15 2023 12:59PM EST DIVISION OF RADIOLOGY * * *Final Report* [...] appear unremarkable DIVISION OF RADIOLOGY Provider, [facility] - 05/15/2023 * * *Final Report* * [...] appear unremarkable IMPRESSION IMPRESSION: DEGENERATIVE CHANGES DESCRIBED Software Packager: PSCB Transcribe Date/Time: May 15 2023 12:57P Dictated by : BAKARI MYERS MD This examination was interpreted and the report reviewed and electronically signed by: BAKARI MYERS MD on May 15 2023 12:59PM EST [facility] Radiology Study observation (narrative) [facility] XR Lumbar spine 3 ViewsOrder ed By: [facility]cf Provider on 05-15-2023 [facility] Dermatopathologyon 3 Dermatopathology Name FRAN PAREKH Pathologist: ASIF AHUMADA MD Date of Procedure: 01/05/2023 Date Received: 01/06/2023 Date Reported 01/09/2023 Submitting Physician: BRUNA CHOWDARY CNP Location: [facility] Other External # FINAL DIAGNOSIS SKIN, LEFT UPPER ARM, SHAVE BIOPSY: LENTIGO AND BENIGN KERATOSIS, 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 Electronically Signed Out by ASIF AHUMADA M.D. Electronically Signed Out By ASIF AHUMADA MD/[facility] By the signature on this report, the individual or group listed as making the Final Interpretation/Diagnosis certifies that they have reviewed this case. Diagnostic interpretation performed at D[facility]atopath Lab [address] [place] [address], [place] [id number] Microscopic Description: There is lentiginous hyperplasia of the epidermis, with mild acanthosis and basal layer pigmentation. There are areas of papillomatosis and acanthosis. A step section was performed. Clinical History: MM vs. other. Shave Biopsy. ([place] office) Specimens Submitted As: A: SKIN, LEFT UPPER ARM Gross Description: Received in formalin is one pitt-brown piece of skin measuring [id number]. The specimen is inked and embedded in toto. ink/01/06/2023 [facility] Dermatopathology Laboratory [place] [id number] [place] [address] Normal [facility] Comment on above: Performed By: #### D #### Dermatopathology ECHOon 11-07-2022 [facility] LVEF TRANSTHORACIC ECHOon LV [facility] F[facility] 59 [facility] CBC panel Auto (Bld)on 11-02 Erythrocyte distribution width (RBC) [Ratio] 13.2 % 11.5 - 15.0 % [facility] Hematocrit (Bld) [Volume fraction] 47.7 % 39.0 - 51.0 % [facility] Hemoglobin (Bld) [Mass/Vol] 15.9 g/dL 13.0 - 17.0 g/dL [facility] MCH (RBC) [Entitic mass] 31.7 pg 26.0 - 34.0 pg [facility] MCHC (RBC) [Mass/Vol] 33.3 g/dL 30.5 - 36.0 g/dL [facility] MCV (RBC) [Entitic vol] 95.2 fL 80.0 - 100.0 fL [facility] Nucleated RBC (Bld) [#/Vol] <0.01 k/uL [facility] Platelet mean volume (Bld) [Entitic vol] 10.1 fL 9.0 - 12.7 fL [facility] Platelets (Bld) [#/Vol] 235 10*3/uL 150 - 400 k/uL [facility] RBC (Bld) [#/Vol] 5.01 10*6/uL 4.20 - 6.00 m/uL [facility] WBC (Bld) [#/Vol] 7.46 10*3/uL 3.70 - 11.00 k/uL [facility] Comprehensive metabolic 2000 panelon 11-02-2022 Albumin [Mass/Vol] 3.7 g/dL Low 3.9 - 4.9 g/dL [facility] ALP [Catalytic activity/Vol] 83 U/L 38 - 113 U/L [facility] ALT [Catalytic activity/Vol] 27 U/L 10 - 54 U/L [facility] Anion gap [Moles/Vol] 11 mmol/L 9 - 18 mmol/L [facility] AST [Catalytic activity/Vol] 26 U/L 14 - 40 U/L [facility] Bilirubin [Mass/Vol] 0.5 mg/dL 0.2 - 1 .3 mg/dL [facility] Calcium [Mass/Vol] 9.1 mg/dL 8.5 - 10. 2 mg/dL [facility] Chloride [Moles/Vol] 104 mmol/L 97 - 10 5 mmol/L [facility] CO2 [Moles/Vol] 24 mmol/L 22 - 30 mmol/L [facility] Creatinine [Mass/Vol] 1.36 mg/dL High 0.73 - 1.22 mg/dL [facility] Estimated Glomerular Filtration Rate 53 mL/min/1.73m Low >=60 mL/min/1.7 3m [facility] Glucose [Mass/Vol] 116 mg/dL High 74 - 99 mg/dL [facility] Potassium [Moles/Vol] 4.5 mmol/L 3.7 - 5.1 mmol/L [facility] Protein [Mass/Vol] 6.4 g/dL 6.3 - 8.0 g/dL [facility] Sodium [Moles/Vol] 139 mmol/L 136 - 144 mmol/L [facility] Urea nitrogen [Mass/Vol] 20 mg/dL 9 - 24 mg/dL [facility] HbA1c (Bld)on 11-02-2022 Average glucose Estimated from glycated hemoglobin (Bld) [Mass/Vol] 126 mg/dL [facility] HbA1c (Bld) [Mass fraction] 6.0 % High 4.3 - 5.6 % [facility] Lipid 1996 panelon Cholesterol [Mass/Vol] 145 mg/dL <200 mg/dL [facility] Cholesterol in HDL [Mass/Vol] 31 mg/dL Low >39 mg/dL [facility] Cholesterol in LDL [Mass/Vol] 70 mg/dL <100 mg/dL [facility] Cholesterol in LDL/Cholesterol in HDL [Mass ratio] 2.26 {ratio} <2.54 [facility] Cholesterol in VLDL [Mass/Vol] 44 mg/dL High <30 mg/dL [facility] Cholesterol non HDL [Mass/Vol] 114 mg/dL <130 mg/dL [facility] Cholesterol.total/Chol esterol in HDL [Mass ratio] 4.68 {ratio} <5.10 [facility] Fasting Time 13 hrs [facility] Triglyceride [Mass/Vol] 221 mg/dL High <150 mg/dL [facility] TSH BLDon 11-02-2022 TSH Qn 1.850 m[IU]/L 0.270 - 4.200 mIU/L [facility] Comprehensive metabolic 2000 panelon 04-13-2022 Albumin [Mass/Vol] 3.9 g/dL 3.9 - 4.9 g/dL [facility] ALP [Catalytic activity/Vol] 69 U/L 38 - 113 U/L [facility] ALT [Catalytic activity/Vol] 22 U/L 10 - 54 U/L [facility] Anion gap [Moles/Vol] 11 mmol/L 9 - 18 mmol/L [facility] AST [Catalytic activity/Vol] 25 U/L 14 - 40 U/L [facility] Bilirubin [Mass/Vol] 0.5 mg/dL 0.2 - 1 .3 mg/dL [facility] Calcium [Mass/Vol] 9.1 mg/dL 8.5 - 10. 2 mg/dL [facility] Chloride [Moles/Vol] 108 mmol/L High 97 - 10 5 mmol/L [facility] CO2 [Moles/Vol] 22 mmol/L 22 - 30 mmol/L [facility] Creatinine [Mass/Vol] 1.37 mg/dL High 0.73 - 1.22 mg/dL [facility] Estimated Glomerular Filtration Rate 53 mL/min/1.73m Low >=60 mL/min/1.7 3m [facility] Glucose [Mass/Vol] 109 mg/dL High 74 - 99 mg/dL [facility] Potassium [Moles/Vol] 4.4 mmol/L 3.7 - 5.1 mmol/L [facility] Protein [Mass/Vol] 6.8 g/dL 6.3 - 8.0 g/dL [facility] Sodium [Moles/Vol] 141 mmol/L 136 - 144 mmol/L [facility] Urea nitrogen [Mass/Vol] 22 mg/dL 9 - 24 mg/dL [facility] HbA1c (Bld)on 07-14-2021 Average glucose Estimated from glycated hemoglobin (Bld) [Mass/Vol] 128 mg/dL [facility] HbA1c (Bld) [Mass fraction] 6.1 % High 4.3 - 5.6 % [facility] Vital Signs Date Time Vital Sign Value Performing Clinician Caprice jalloh 12-26-2024 13:15-0400 Body temperature 97.6 [degF] Dr. Salvador Del Rosario MD Work Phone: [facility] 12-26-2024 13:15-0400 Diastolic blood pressure 71 mm[Hg] Dr. Salvador Del Rosario MD Work Phone: [facility] 12-26-2024 13:15-0400 Heart rate 50 /min Dr. Salvador Del Rosario MD Work Phone: [facility] 12-26-2024 13:15-0400 Respiratory rate 16 /min Dr. Salvador Del Rosario MD Work Phone: [facility] 12-26-2024 13:15-0400 SaO2% (BldA) [Mass fraction] 98 % Dr. Salvador Del Rosario MD Work Phone: [facility] 12-26-2024 13:15-0400 Systolic blood pressure 150 mm[Hg] Dr. Salvador Del Rosario MD Work Phone: [facility] 12-26-2024 10:28-0400 Body height 180.[address] Salvador Del Rosario MD Work Phone: [facility] 12-26-2024 10:28-0400 Body mass index (BMI) [Ratio] 40.1 kg/m2 Dr. Salvador Del Rosario MD Work Phone: [facility] 12-26-2024 10:28-0400 Body weight 130.[address] Salvador Del Rosario MD Work Phone: [facility] 10-31-2024 10:35-0400 Body mass index (BMI) [Ratio] 42.61 kg/m2 Ghazala José 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 Work Phone: [facility] 10-31-2024 10:35-0400 Body weight 132.9 kg Ghazala José 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 Work Phone: [facility] 10-31-2024 10:35-0400 Diastolic blood pressure 90 mm[Hg] Ghazala José 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 Work Phone: [facility] 10-31-2024 10:35-0400 Heart rate 60 /min Ghazala José 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 Work Phone: [facility] 10-31-2024 10:35-0400 Respiratory rate 16 /min Ghazala José 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 Work Phone: [facility] 10-31-2024 10:35-0400 SaO2% (BldA) [Mass fraction] 97 % Ghazala José 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 Work Phone: [facility] 10-31-2024 10:35-0400 Systolic blood pressure 149 mm[Hg] Ghazala José 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 Work Phone: [facility] 10-28-2024 13:38-0400 Body mass index (BMI) [Ratio] 42.41 kg/m2 Marilia Podlogar 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 Work Phone: [facility] 10-28-2024 13:38-0400 Body temperature 98.1 [degF] Marilia Podlogar 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 Work Phone: [facility] 10-28-2024 13:38-0400 Body weight 132.27 kg Marilia Podlogar 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 Work Phone: [facility] 10-28-2024 13:38-0400 Diastolic blood pressure 76 mm[Hg] Marilia Podlogar 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 Work Phone: [facility] 10-28-2024 13:38-0400 Heart rate 54 /min Marilia Podlogar 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 Work Phone: [facility] 10-28-2024 13:38-0400 Respiratory rate 18 /min Marilia Podlogar 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 Work Phone: [facility] 10-28-2024 13:38-0400 SaO2% (BldA) [Mass fraction] 95 % Marilia Podlogar 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 Work Phone: [facility] 10-28-2024 13:38-0400 Systolic blood pressure 138 mm[Hg] Marilia Podlogar 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 Work Phone: [facility] 10-24-2024 08:09-0400 Body temperature 98 [degF] Dr. Salvador Del Rosario MD Work Phone: [facility] 10-24-2024 08:09-0400 Diastolic blood pressure 69 mm[Hg] Dr. Salvador Del Rosario MD Work Phone: [facility] 10-24-2024 08:09-0400 Heart rate 62 /min Dr. Salvador Del Rosario MD Work Phone: [facility] 10-24-2024 08:09-0400 Respiratory rate 18 /min Dr. Salvador Del Rosario MD Work Phone: 5(499)154-630546 [place] [address] 10-24-2024 08:09-0400 SaO2% (BldA) [Mass fraction] 95 % Dr. Salvador Del Rosario MD Work Phone: 7(285)871-302981 [place] [address] 10-24-2024 08:09-0400 Systolic blood pressure 149 mm[Hg] Dr. Salvador Del Rosario MD Work Phone: 3(192)011-939281 [place] [address] 10-24-2024 05:48-0400 Body mass index (BMI) [Ratio] 42.9 kg/m2 Dr. Salvador Del Rosario MD Work Phone: 6(964)209-319581 [place] [address] 10-24-2024 05:48-0400 Body weight [address] Salvador Del Rosario MD Work Phone: 4(777)627-865181 [place] [address] 10-22-2024 06:00-0400 Body temperature 98.9 [degF] Dr. Salvador Del Rosario MD Work Phone: 8(979)489-216081 [place] [address] 10-22-2024 06:00-0400 Diastolic blood pressure 70 mm[Hg] Dr. Salvador Del Rosario MD Work Phone: 3(691)012-548181 [place] [address] 10-22-2024 06:00-0400 Heart rate 54 /min Dr. Salvador Del Rosario MD Work Phone: 0(577)125-505481 [place] [address] 10-22-2024 06:00-0400 Respiratory rate 19 /min Dr. Salvador Del Rosario MD Work Phone: 3(923)410-482581 [place] [address] 10-22-2024 06:00-0400 SaO2% (BldA) [Mass fraction] 93 % Dr. Salvador Del Rosario MD Work Phone: 6(862)787-237681 [place] [address] 10-22-2024 06:00-0400 Systolic blood pressure 105 mm[Hg] Dr. Salvador Del Rosario MD Work Phone: 3(417)820-049081 [place] [address] 10-22-2024 05:50-0400 Body height 177.[address] Salvador Del Rosario MD Work Phone: 1(122)002-998881 [place] [address] 10-21-2024 23:17-0400 Body height 177.[address] Salvador Del Rosario MD Work Phone: [facility] 10-21-2024 23:17-0400 Body mass index (BMI) [Ratio] 42.9 kg/m2 Dr. Salvador Del Rosario MD Work Phone: [facility] 10-21-2024 23:17-0400 Body weight 135.[address] Salvador Del Rosario MD Work Phone: [facility] 10-08-2024 09:35-0400 Body mass index (BMI) [Ratio] 42.61 kg/m2 Marilia Podlogar 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 Work Phone: [facility] 10-08-2024 09:35-0400 Body weight 132.9 kg Marilia Podlogar 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 Work Phone: [facility] 10-08-2024 09:35-0400 Diastolic blood pressure 76 mm[Hg] Marilia Podlogar 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 Work Phone: [facility] 10-08-2024 09:35-0400 Heart rate 58 /min Marilia Podlogar 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 Work Phone: [facility] 10-08-2024 09:35-0400 Respiratory rate 18 /min Marilia Podlogar 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 Work Phone: [facility] 10-08-2024 09:35-0400 SaO2% (BldA) [Mass fraction] 98 % Marilia Podlogar 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 Work Phone: [facility] 10-08-2024 09:35-0400 Systolic blood pressure 118 mm[Hg] Marilia Podlogar 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 Work Phone: [facility] 10-07-2024 13:40-0400 Body temperature 98.1 [degF] Dr. Salvador Del Rosario MD Work Phone: [facility] 10-07-2024 13:40-0400 Diastolic blood pressure 80 mm[Hg] Dr. Salvador Del Rosario MD Work Phone: 1(753)095-904481 [place] [address] 10-07-2024 13:40-0400 Heart rate 48 /min Dr. Salvador Del Rosario MD Work Phone: 2(433)966-186281 [place] [address] 10-07-2024 13:40-0400 Respiratory rate 18 /min Dr. Salvador Del Rosario MD Work Phone: 1(447)709-382681 [place] [address] 10-07-2024 13:40-0400 SaO2% (BldA) [Mass fraction] 96 % Dr. Salvador Del Rosario MD Work Phone: 2(344)846-195681 [place] [address] 10-07-2024 13:40-0400 Systolic blood pressure 137 mm[Hg] Dr. Salvador Del Rosario MD Work Phone: 2(459)062-347281 [place] [address] 10-07-2024 10:53-0400 Body height 177.[address] Salvador Del Rosario MD Work Phone: 3(249)550-604581 [place] [address] 10-07-2024 10:53-0400 Body mass index (BMI) [Ratio] 41.5 kg/m2 Dr. Salvador Del Rosario MD Work Phone: 4(049)834-322381 [place] [address] 10-07-2024 10:53-0400 Body weight 131.[address] Salvador Del Rosario MD Work Phone: 2(967)754-627881 [place] [address] 09-17-2024 09:36-0400 Body height 177.[address] Salvador Del Rosario MD Work Phone: 1(797)261-491381 [place] [address] 09-17-2024 09:36-0400 Body mass index (BMI) [Ratio] 42.3 kg/m2 Dr. Salvador Del Rosario MD Work Phone: 7(523)959-180481 [place] [address] 09-17-2024 09:36-0400 Body weight 133.[address] Salvador Del Rosario MD Work Phone: 7(557)857-146081 [place] [address] 08-31-2024 13:47-0400 Diastolic blood pressure 78 mm[Hg] Dr. Salvador Del Rosario MD Work Phone: 8(597)807-905981 [place] [address] 08-31-2024 13:47-0400 Heart rate 78 /min Dr. Salvador Del Rosario MD Work Phone: [facility] 08-31-2024 13:47-0400 Respiratory rate 16 /min Dr. Salvador Del Rosario MD Work Phone: [facility] 08-31-2024 13:47-0400 SaO2% (BldA) [Mass fraction] 98 % Dr. Salvador Del Rosario MD Work Phone: [facility] 08-31-2024 13:47-0400 Systolic blood pressure 134 mm[Hg] Dr. Salvador Del Rosario MD Work Phone: 3(324)018-507881 [place] [address] 08-31-2024 11:25-0400 Body mass index (BMI) [Ratio] 43 kg/m2 Dr. Salvador Del Rosario MD Work Phone: 8(236)365-256381 [place] [address] 08-31-2024 11:25-0400 Body weight 136.[address] Salvador Del Rosario MD Work Phone: 7(735)513-89[address] [place] [address] 08-31-2024 11:23-0400 Body temperature 97.7 [degF] Dr. Salvador Del Rosario MD Work Phone: [facility] 08-13-2024 11:45-0400 Body height 176.6 cm Marilia Podlogar 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 Work Phone: [facility] 08-13-2024 11:45-0400 Body mass index (BMI) [Ratio] 42.88 kg/m2 Marilia Podlogar 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 Work Phone: [facility] 08-13-2024 11:45-0400 Body weight 133.72 kg Marilia Podlogar 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 Work Phone: [facility] 08-13-2024 11:45-0400 Diastolic blood pressure 82 mm[Hg] Marilia Podlogar 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 Work Phone: [facility] 08-13-2024 11:45-0400 Heart rate 65 /min Marilia Podlogar 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 Work Phone: [facility] 08-13-2024 11:45-0400 Respiratory rate 18 /min Marilia Podlogar 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 Work Phone: [facility] 08-13-2024 11:45-0400 SaO2% (BldA) [Mass fraction] 95 % Marilia Podlogar 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 Work Phone: [facility] 08-13-2024 11:45-0400 Systolic blood pressure 118 mm[Hg] Marilia Podlogar 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 Work Phone: [facility] 07-04-2024 11:22-0500 Body temperature 97.5 [degF] Dr. Salvador Del Rosario MD Work Phone: 4(315)[phone] [place] [address] 07-04-2024 11:22-0500 Diastolic blood pressure 59 mm[Hg] Dr. Salvador Del Rosario MD Work Phone: 6(827)[phone] [place] [address] 07-04-2024 11:22-0500 Heart rate 59 /min Dr. Salvador Del Rosario MD Work Phone: 5(262)[phone] [place] [address] 07-04-2024 11:22-0500 Respiratory rate 16 /min Dr. Salvador Del Rosario MD Work Phone: [facility] 07-04-2024 11:22-0500 SaO2% (BldA) [Mass fraction] 96 % Dr. Salvador Del Rosario MD Work Phone: [facility] 07-04-2024 11:22-0500 Systolic blood pressure 114 mm[Hg] Dr. Salvador Del Rosario MD Work Phone: 8(237)[phone] [place] [address] 07-04-2024 08:49-0500 Body height 177.[address] Salvador Del Rosario MD Work Phone: 1(659)456-954881 [place] [address] 07-04-2024 08:49-0500 Body mass index (BMI) [Ratio] 42 kg/m2 Dr. Salvador Del Rosario MD Work Phone: 1(838)[phone] [place] [address] 07-04-2024 08:49-0500 Body weight [address] Salvador Del Rosario MD Work Phone: [facility] 04-01-2024 11:45-0500 Body mass index (BMI) [Ratio] 38.45 kg/m2 Marilia Podlogar 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 Work Phone: [facility] 04-01-2024 11:45-0500 Body temperature 97.9 [degF] Marilia Podlogar 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 Work Phone: [facility] 04-01-2024 11:45-0500 Body weight 128.6 kg Marilia Podlogar 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 Work Phone: [facility] 04-01-2024 11:45-0500 Diastolic blood pressure 82 mm[Hg] Marilia Podlogar 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 Work Phone: [facility] 04-01-2024 11:45-0500 Heart rate 59 /min Marilia Podlogar 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 Work Phone: [facility] 04-01-2024 11:45-0500 Respiratory rate 18 /min Marilia Podlogar 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 Work Phone: [facility] 04-01-2024 11:45-0500 SaO2% (BldA) [Mass fraction] 96 % Marilia Podlogar 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 Work Phone: [facility] 04-01-2024 11:45-0500 Systolic blood pressure 138 mm[Hg] Marilia Podlogar 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 Work Phone: [facility] 03-28-2024 14:00-0500 Body temperature 97.8 [degF] Dr. Salvador Del Rosario MD Work Phone: [facility] 03-28-2024 14:00-0500 Diastolic blood pressure 75 mm[Hg] Dr. Salvador Del Rosario MD Work Phone: [facility] 03-28-2024 14:00-0500 Heart rate 62 /min Dr. Salvador Del Rosario MD Work Phone: [facility] 03-28-2024 14:00-0500 Respiratory rate 16 /min Dr. Salvador Del Rosario MD Work Phone: [facility] 03-28-2024 14:00-0500 SaO2% (BldA) [Mass fraction] 96 % Dr. Salvador Del Rosario MD Work Phone: [facility] 03-28-2024 14:00-0500 Systolic blood pressure 125 mm[Hg] Dr. Salvador Del Rosario MD Work Phone: 1(974)[phone] [place] [address] 03-27-2024 11:14-0500 Body mass index (BMI) [Ratio] 41.2 kg/m2 Dr. Salvador Del Rosario MD Work Phone: 2(848)045-697279 [place] [address] 03-27-2024 11:14-0500 Body weight 130.[address] Salvador Del Rosario MD Work Phone: 0(978)346-871281 [place] [address] 02-14-2024 11:25-0400 Body mass index (BMI) [Ratio] 39.53 kg/m2 Marilia Podlogar 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 Work Phone: [facility] 02-14-2024 11:25-0400 Body weight 132.2 kg Marilia Podlogar 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 Work Phone: [facility] 02-14-2024 11:25-0400 Diastolic blood pressure 84 mm[Hg] Marilia Podlogar 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 Work Phone: [facility] 02-14-2024 11:25-0400 Heart rate 60 /min Marilia Podlogar 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 Work Phone: [facility] 02-14-2024 11:25-0400 Respiratory rate 18 /min Marilia Podlogar 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 Work Phone: [facility] 02-14-2024 11:25-0400 SaO2% (BldA) [Mass fraction] 95 % Marilia Podlogar 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 Work Phone: [facility] 02-14-2024 11:25-0400 Systolic blood pressure 138 mm[Hg] Marilia Podlogar 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 Work Phone: [facility] 01-29-2024 11:06-0400 Body mass index (BMI) [Ratio] 38.78 kg/m2 Marilia Podlogar 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 Work Phone: [facility] 01-29-2024 11:06-0400 Body temperature 97.59 [degF] Marilia Podlogar 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 Work Phone: [facility] 01-29-2024 11:06-0400 Body weight 129.7 kg Marilia Podlogar 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 Work Phone: [facility] 01-29-2024 11:06-0400 Diastolic blood pressure 92 mm[Hg] Marilia Podlogar 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 Work Phone: [facility] 01-29-2024 11:06-0400 Heart rate 59 /min Marilia Podlogar 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 Work Phone: [facility] 01-29-2024 11:06-0400 Respiratory rate 16 /min Marilia Podlogar 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 Work Phone: [facility] 01-29-2024 11:06-0400 SaO2% (BldA) [Mass fraction] 96 % Marilia Podlogar 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 Work Phone: [facility] 01-29-2024 11:06-0400 Systolic blood pressure 144 mm[Hg] Marilia Podlogar 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 Work Phone: [facility] 01-24-2024 12:02-0400 Body mass index (BMI) [Ratio] 38.9 kg/m2 Marilia Podlogar 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 Work Phone: [facility] 01-24-2024 12:02-0400 Body temperature 98.2 [degF] Marilia Podlogar 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 Work Phone: [facility] 01-24-2024 12:02-0400 Body weight 130.1 kg Marilia Podlogar 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 Work Phone: [facility] 01-24-2024 12:02-0400 Diastolic blood pressure 90 mm[Hg] Marilia Podlogar 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 Work Phone: [facility] 01-24-2024 12:02-0400 Heart rate 81 /min Marilia Podlogar 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 Work Phone: [facility] 01-24-2024 12:02-0400 Respiratory rate 16 /min Marilia Podlogar 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 Work Phone: [facility] 01-24-2024 12:02-0400 SaO2% (BldA) [Mass fraction] 97 % Marilia Podlogar 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 Work Phone: [facility] 01-24-2024 12:02-0400 Systolic blood pressure 134 mm[Hg] Marilia Podlogar 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 Work Phone: [facility] 01-22-2024 11:25-0400 Body mass index (BMI) [Ratio] 39.14 kg/m2 Agnes Del Rosario MD Work Phone: [facility] 01-22-2024 11:25-0400 Body temperature 97.9 [degF] Agnes Del Rosario MD Work Phone: [facility] 01-22-2024 11:25-0400 Body weight 130.91 kg Agnes Del Rosario MD Work Phone: [facility] 01-22-2024 11:25-0400 Diastolic blood pressure 72 mm[Hg] Agnes Del Rosario MD Work Phone: [facility] 01-22-2024 11:25-0400 Heart rate 76 /min Agnes Del Rosario MD Work Phone: [facility] 01-22-2024 11:25-0400 Respiratory rate 18 /min Agnes Del Rosario MD Work Phone: [facility] 01-22-2024 11:25-0400 SaO2% (BldA) [Mass fraction] 98 % Agnes Del Rosario MD Work Phone: [facility] 01-22-2024 11:25-0400 Systolic blood pressure 124 mm[Hg] Agnes Del Rosario MD Work Phone: [facility] 01-19-2024 09:40-0400 Body mass index (BMI) [Ratio] 38.27 kg/m2 Marilia Pylelognarciso 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 Work Phone: [facility] 01-19-2024 09:40-0400 Body temperature 98.01 [degF] Marilia Podlogar 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 Work Phone: [facility] 01-19-2024 09:40-0400 Body weight 128 kg Marilia Podlogar 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 Work Phone: [facility] 01-19-2024 09:40-0400 Diastolic blood pressure 94 mm[Hg] Marilia Podlogar 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 Work Phone: [facility] 01-19-2024 09:40-0400 Heart rate 84 /min Marilia Podlogar 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 Work Phone: [facility] 01-19-2024 09:40-0400 Respiratory rate 18 /min Marilia Podlogar 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 Work Phone: [facility] 01-19-2024 09:40-0400 SaO2% (BldA) [Mass fraction] 98 % Marilia Podlogar 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 Work Phone: [facility] 01-19-2024 09:40-0400 Systolic blood pressure 132 mm[Hg] Marilia Podlogar 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 Work Phone: [facility] 01-18-2024 12:03-0400 Body mass index (BMI) [Ratio] 38.93 kg/m2 Joleen Munoz 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 Work Phone: [facility] 01-18-2024 12:03-0400 Body temperature 97.39 [degF] Joleen Munoz 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 Work Phone: [facility] 01-18-2024 12:03-0400 Body weight 130.2 kg Joleen Munoz APRN.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 Work Phone: [facility] 01-18-2024 12:03-0400 Diastolic blood pressure 76 mm[Hg] Joleen Munoz SELENE.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 Work Phone: [facility] 01-18-2024 12:03-0400 Heart rate 79 /min Joleen Munoz SELENE.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 Work Phone: [facility] 01-18-2024 12:03-0400 Respiratory rate 18 /min Joleen Munoz APRN.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 Work Phone: [facility] 01-18-2024 12:03-0400 SaO2% (BldA) [Mass fraction] 97 % Joleen Munoz SELENE.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 Work Phone: [facility] 01-18-2024 12:03-0400 Systolic blood pressure 126 mm[Hg] Joleen Munoz APRN.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 Work Phone: [facility] 01-18-2024 08:39-0400 Diastolic blood pressure 86 mm[Hg] Pradhab Kirupaharan DO Work Phone: [facility] 01-18-2024 08:39-0400 Heart rate 72 /min Pradhab Kirupaharan DO Work Phone: [facility] 01-18-2024 08:39-0400 Respiratory rate 18 /min Pradhab Kirupaharan DO Work Phone: [facility] 01-18-2024 08:39-0400 SaO2% (BldA) [Mass fraction] 97 % Pradhab Kirupaharan DO Work Phone: [facility] 01-18-2024 08:39-0400 Systolic blood pressure 143 mm[Hg] Pradhab Kirupaharan DO Work Phone: [facility] 12-19-2023 14:51-0400 Body mass index (BMI) [Ratio] 38.78 kg/m2 Xuan Pepe MD Work Phone: [facility] 12-19-2023 14:51-0400 Body weight 129.7 kg Xuan Pepe MD Work Phone: [facility] 12-19-2023 14:51-0400 Diastolic blood pressure 82 mm[Hg] Xuan Pepe MD Work Phone: [facility] 12-19-2023 14:51-0400 Heart rate 70 /min Xuan Pepe MD Work Phone: [facility] 12-19-2023 14:51-0400 Systolic blood pressure 145 mm[Hg] Xuan Pepe MD Work Phone: [facility] 12-18-2023 08:00-0400 Diastolic blood pressure 83 mm[Hg] Yogesh Golias PT Work Phone: [facility] 12-18-2023 08:00-0400 Heart rate 55 /min Yogesh Golias PT Work Phone: [facility] 12-18-2023 08:00-0400 Systolic blood pressure 130 mm[Hg] Yogesh Golias PT Work Phone: [facility] 11-09-2023 10:42-0400 Body height 182.9 cm Pradhab Kirupaharan DO Work Phone: [facility] 11-09-2023 10:42-0400 Body mass index (BMI) [Ratio] 38.52 kg/m2 Pradhab Kirupaharan DO Work Phone: [facility] 11-09-2023 10:42-0400 Body weight 128.82 kg Pradhab Kirupaharan DO Work Phone: [facility] 11-09-2023 10:42-0400 Diastolic blood pressure 84 mm[Hg] Pradhab Kirupaharan DO Work Phone: [facility] 11-09-2023 10:42-0400 Heart rate 55 /min Pradhab Kirupaharan DO Work Phone: [facility] 11-09-2023 10:42-0400 SaO2% (BldA) [Mass fraction] 96 % Prakarthikeyan Lopezaharan DO Work Phone: [facility] 11-09-2023 10:42-0400 Systolic blood pressure 141 mm[Hg] Pradhab Kirupaharan DO Work Phone: [facility] 10-30-2023 13:14-0400 Body mass index (BMI) [Ratio] 38.52 kg/m2 Agnes Del Rosario MD Work Phone: [facility] 10-30-2023 13:14-0400 Body weight 128.82 kg Agnes Del Rosario MD Work Phone: [facility] 10-30-2023 13:14-0400 Diastolic blood pressure 86 mm[Hg] Agnes Del Rosario MD Work Phone: [facility] 10-30-2023 13:14-0400 Heart rate 72 /min Agnes Del Rosario MD Work Phone: [facility] 10-30-2023 13:14-0400 Respiratory rate 20 /min Agnes Del Rosario MD Work Phone: [facility] 10-30-2023 13:14-0400 SaO2% (BldA) [Mass fraction] 95 % Agnes Del Rosario MD Work Phone: [facility] 10-30-2023 13:14-0400 Systolic blood pressure 138 mm[Hg] Agnes Del Rosario MD Work Phone: [facility] 10-09-2023 07:16-0400 Body mass index (BMI) [Ratio] 42.39 kg/m2 Sherrell Rouse APRN.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 Work Phone: [facility] 10-09-2023 07:16-0400 Body temperature 96.91 [degF] Sherrell Rouse 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 Work Phone: [facility] 10-09-2023 07:16-0400 Body weight 134 kg Sherrell Rouse 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 Work Phone: [facility] 10-09-2023 07:16-0400 Diastolic blood pressure 80 mm[Hg] Sherrell Rouse 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 Work Phone: [facility] 10-09-2023 07:16-0400 Heart rate 78 /min Sherrell Rouse 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 Work Phone: [facility] 10-09-2023 07:16-0400 Respiratory rate 16 /min Sherrell Rouse 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 Work Phone: [facility] 10-09-2023 07:16-0400 SaO2% (BldA) [Mass fraction] 96 % Sherrell Rouse 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 Work Phone: [facility] 10-09-2023 07:16-0400 Systolic blood pressure 142 mm[Hg] Sherrell Rouse 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 Work Phone: [facility] 08-01-2023 09:27-0400 Body weight 129.37 kg Marilia Podlogar 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 Work Phone: [facility] 08-01-2023 09:27-0400 Diastolic blood pressure 82 mm[Hg] Marilia Podlogar 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 Work Phone: [facility] 08-01-2023 09:27-0400 Heart rate 65 /min Marilia Podlogar 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 Work Phone: [facility] 08-01-2023 09:27-0400 Respiratory rate 18 /min Marilia Podlogar 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 Work Phone: [facility] 08-01-2023 09:27-0400 SaO2% (BldA) [Mass fraction] 94 % Marilia Podlogar 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 Work Phone: [facility] 08-01-2023 09:27-0400 Systolic blood pressure 122 mm[Hg] Marilia Podlogar 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 Work Phone: [facility] 06-16-2023 11:38-0500 Diastolic blood pressure 97 mm[Hg] Marilia Podlogar 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 Work Phone: [facility] 06-16-2023 11:38-0500 Heart rate 66 /min Marilia Podlogar 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 Work Phone: [facility] 06-16-2023 11:38-0500 Systolic blood pressure 161 mm[Hg] Marilia Podlogar 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 Work Phone: [facility] 06-16-2023 10:49-0500 Body weight 133.81 kg Marilia Podlogar 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 Work Phone: [facility] 06-16-2023 10:49-0500 Respiratory rate 18 /min Marilia Podlogar 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 Work Phone: [facility] 06-16-2023 10:49-0500 SaO2% (BldA) [Mass fraction] 97 % Marilia Podlogar 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 Work Phone: [facility] 11-02-2022 08:38-0400 Body weight 132.27 kg Marilia Podlogar 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 Work Phone: [facility] 11-02-2022 08:38-0400 Diastolic blood pressure 86 mm[Hg] Marilia Podlogar 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 Work Phone: [facility] 11-02-2022 08:38-0400 Heart rate 60 /min Marilia Podlogar 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 Work Phone: [facility] 11-02-2022 08:38-0400 Respiratory rate 18 /min Marilia Podlogar 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 Work Phone: [facility] 11-02-2022 08:38-0400 SaO2% (BldA) [Mass fraction] 96 % Marilia Podlogar 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 Work Phone: [facility] 11-02-2022 08:38-0400 Systolic blood pressure 132 mm[Hg] Marilia Podlogar 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 Work Phone: [facility] 05-23-2022 11:01-0500 Body temperature 97.59 [degF] Cole Campos MD Work Phone: [facility] 05-23-2022 11:01-0500 Body weight 127.46 kg Cole Campos MD Work Phone: [facility] 05-23-2022 11:01-0500 Diastolic blood pressure 76 mm[Hg] Cole Campos MD Work Phone: [facility] 05-23-2022 11:01-0500 Heart rate 94 /min Cole Campos MD Work Phone: [facility] 05-23-2022 11:01-0500 Respiratory rate 18 /min Cole Campos MD Work Phone: [facility] 05-23-2022 11:01-0500 SaO2% (BldA) [Mass fraction] 97 % Cole Campos MD Work Phone: [facility] 05-23-2022 11:01-0500 Systolic blood pressure 122 mm[Hg] Cole Campos MD Work Phone: [facility] 04-13-2022 10:17-0500 Diastolic blood pressure 84 mm[Hg] Agnes Del Rosario MD Work Phone: [facility] 04-13-2022 10:17-0500 Systolic blood pressure 138 mm[Hg] Agnes Del Rosario MD Work Phone: [facility] 04-13-2022 09:20-0500 Body height 177.8 cm Agnes Del Rosario MD Work Phone: [facility] 04-13-2022 09:20-0500 Body weight 128.37 kg Agnes Del Rosario MD Work Phone: [facility] 04-13-2022 09:20-0500 Heart rate 62 /min Agnes Del Rosario MD Work Phone: [facility] 04-13-2022 09:20-0500 Respiratory rate 18 /min Agnes Del Rosario MD Work Phone: [facility] 02-11-2022 08:48-0400 Body temperature 97.11 [degF] Bruno Marquez Jr., MD Work Phone: [facility] 02-11-2022 08:48-0400 Body weight 124.74 kg Bruno Marquez Jr., MD Work Phone: [facility] 02-11-2022 08:48-0400 Diastolic blood pressure 73 mm[Hg] Bruno Marquez Jr., MD Work Phone: [facility] 02-11-2022 08:48-0400 Heart rate 78 /min Bruno Marquez Jr., MD Work Phone: [facility] 02-11-2022 08:48-0400 Respiratory rate 18 /min Bruno Marquez Jr., MD Work Phone: [facility] 02-11-2022 08:48-0400 SaO2% (BldA) [Mass fraction] 97 % Bruno Marquez Jr., MD Work Phone: [facility] 02-11-2022 08:48-0400 Systolic blood pressure 120 mm[Hg] Bruno Marquez Jr., MD Work Phone: [facility] 12-08-2021 11:00-0400 Diastolic blood pressure 86 mm[Hg] Yogesh Golias PT Work Phone: [facility] 12-08-2021 11:00-0400 Systolic blood pressure 124 mm[Hg] Yogesh Golias PT Work Phone: [facility] 11-11-2021 09:32-0400 Body temperature 97.39 [degF] Tri Athy PA-C Work Phone: [facility] 11-11-2021 09:32-0400 Body weight 130.64 kg Tri Athy PA-C Work Phone: [facility] 11-11-2021 09:32-0400 Diastolic blood pressure 90 mm[Hg] Tri Athy PA-C Work Phone: [facility] 11-11-2021 09:32-0400 Heart rate 72 /min Rti Athy PA-C Work Phone: [facility] 11-11-2021 09:32-0400 Respiratory rate 20 /min Tri Fairy PA-C Work Phone: [facility] 11-11-2021 09:32-0400 SaO2% (BldA) [Mass fraction] 97 % Tri Fairy PA-C Work Phone: [facility] 11-11-2021 09:32-0400 Systolic blood pressure 140 mm[Hg] Tri Fairy PA-C Work Phone: [facility] 1945 00:00-0400 >na< Bruna Chowdary Dept. of Dermatology Encounters Encounter Date Encounter Type Care Provider Facility Start: 01-30-2025 End: 01-30-2025 Office outpatient visit 15 minutes Brunaalverto Pedro [employer] SUPERVISOR-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 Work Phone: [facility] Comment on above: Nevus (Primary Dx); Lentigo; Seborrheic keratosis; Screening exam for skin cancer; Xerosis cutis; History of nonmelanoma skin cancer; Neoplasm of uncertain behavior of skin; Venous stasis dermatitis, unspecified laterality Start: 01-30-2025 End: 01-30-2025 ambulatory [facility] Start: 12-26-2024 Non-patient / Non-visit Alex Calix nd DO -[facility] Start: 12-26-2024 End: 12-26-2024 Admission to same day surgery center Alex Sher DO -Endoscopy Work Phone: Start: 12-26-2024 End: 12-26-[address] Salvador Del Rosario MD Work Phone: -Endoscopy Start: 12-23-2024 End: 12-23-2024 Telephone encounter Agnes Del Rosario MD Work Phone: [facility] Comment on above: Results Start: 11-15-2024 End: 11-19-2024 Patient Outreach John Dunlap RN [employer] Comment on above: Transition Of Care ( Second outreach) Weekly phone contact (Recurring) for Transitional Care Management Forms Start: 11-13-2024 End: 11-15-2024 Refill Agnes Del Rosario MD Work Phone: [facility] Comment on above: Refill Request Start: 11-06-2024 End: 11-06-2024 Patient encounter procedure Melanie Guajardo [place] -[facility] Work Phone: Start: 11-06-2024 End: 11-06-[address] Salvador Del Rosario MD Work Phone: [facility] Start: 11-04-2024 End: 11-05-2024 Refill Agnes Del Rosario MD Work Phone: [address] [place] [address] Comment on above: Refill Request Start: 10-31-2024 End: 10-31-2024 Patient encounter procedure Ghazala Kumar APRN.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 Work Phone: Neurology Comment on above: MARTIN on CPAP (Primary Dx) Transition Of Care ( First outreach) Weekly phone contact (Recurring) for Transitional Care Management Start: 10-31-2024 End: 10-31-2024 ambulatory John Dunlap RN [employer] Start: 10-30-2024 End: 10-30-2024 Telephone encounter Bruno Marquez MD Work Phone: Neurology Comment on above: Sleep appt needed Start: 10-28-2024 End: 10-28-2024 ambulatory AGNES DEL ROSARIO Facility:[facility] Start: 10-28-2024 End: 10-28-2024 Patient encounter procedure Marilia Orozco 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 Work Phone: [facility] Comment on above: Hospital discharge f ollow-up (Primary Dx); Cholangitis (HCC); Nausea and vomiting, unspecified vomiting type; Fever of unknown origin Start: 10-25-2024 End: 10-25-2024 Patient Outreach John Dunlap RN [employer] Comment on above: Transition Of Care ( Initial Outreach-[place] 10/24/2024) Initial phone contact for Transitional Care Management Start: 10-24-2024 Non-patient / Non-visit Alex Frie nd DO -[facility] Start: 10-24-2024 Non-patient / Non-visit Dr. Marleny Fitzgerald DO [facility] Work Phone: Start: 10-23-2024 Non-patient / Non-visit Alex Frie nd DO [facility] Start: 10-23-2024 Non-patient / Non-visit Dr. Marleny Fitzgerald [facility] Work Phone: Start: 10-22-2024 Non-patient / Non-visit Alex Frie nd DO [facility] [facility] Start: 10-22-2024 End: 10-22-2024 Telephone encounter Agnes Del Rosario MD Work Phone: [facility] Comment on above: request for updated med list; Patient Update (Admitted to [facility]) Start: 10-22-2024 ambulatory Werner Bueno ty:[facility] Start: 10-22-2024 End: 10-24-2024 Evaluation and management of inpatient Dr. Werner Nunn DO [facility] Work Phone: Start: 10-09-2024 End: 10-10-2024 Follow-up encounter Ree Ram LPN Internal Medicine [place] Comment on above: Xray Results Start: 10-08-2024 End: 10-08-2024 Subsequent hospital visit by physician Radha [facility] Work Phone: Radiology Comment on above: Left hand pain [M79. 642] Start: 10-08-2024 End: 10-08-2024 Patient encounter procedure Marilia Orozco 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 Work Phone: Family Medicine [place] Comment on above: Left hand pain (Prim delia Dx); Left wrist pain Start: 10-08-2024 End: 10-08-2024 ambulatory AGNES DEL ROSARIO Facility:[facility] Start: 10-07-2024 ambulatory Alex Friend Facility :[facility] Start: 10-07-2024 End: 10-07-2024 Non-patient / Non-visit Alex Sher -[facility] Start: 10-07-2024 End: 10-07-2024 Admission to same day surgery center Alex Sher DO -Endoscopy Work Phone: Start: 10-07-2024 End: 10-07-[address] Salvador Del Rosario MD Work Phone: [facility] Work Phone: Start: 09-25-2024 End: 09-25-2024 Office outpatient visit 25 minutes Victor Manuel Burrows DO Work Phone: Pulmonology Comment on above: History of pulmonary embolism (Primary Dx); BMI 38.0-38.9,adult; History of venous thromboembolism; Stage 3a chronic kidney disease (HCC); Venous insufficiency (chronic) (peripheral) Start: 09-25-2024 End: 09-25-2024 ambulatory AGNES DEL ROSARIO Facility:[facility] Start: 09-17-2024 End: 09-17-[address] Isaias Velez MD -[facility] Start: 09-17-2024 End: 09-17-[address] Salvador Del Rosario MD Work Phone: [facility] Work Phone: Start: 08-31-2024 End: 08-31-2024 Emergency department patient visit Dr. Isaias Trivedi MD -Emergency Department Work Phone: Start: 08-31-2024 End: 08-31-2024 ambulatory COLE CAMPOS Facility:[facility] Start: 08-31-2024 End: 08-31-2024 Patient encounter procedure Cole Campos MD Work Phone: [facility] Comment on above: Abdominal pain, unsp ecified abdominal location (Primary Dx) Start: 08-27-2024 End: 08-27-2024 Telephone encounter Agnes Del Rosario MD Work Phone: [facility] Comment on above: medication form (Ant icoagulant authorization form) Start: 08-16-2024 End: 08-16-2024 Follow-up encounter Marilia Orozco APRN.CNP Work Phone: [facility] Comment on above: Results Start: 08-15-2024 End: 08-15-2024 ambulatory AGNES DEL ROSARIO Facility:[facility] Start: 08-13-2024 End: 08-13-2024 Patient encounter procedure Marilia Orozco APRN.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 Work Phone: [facility] Comment on above: Essential hypertensi on, benign (Primary Dx); Pulmonary HTN (HCC); MARTIN (obstructive sleep apnea); Prediabetes; Hyperlipidemia LDL goal <100; Obesity, Class III, 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 Start: 08-07-2024 End: 08-07-2024 Patient encounter procedure Morelia Munguia MA [facility] [place] Comment on above: Population Health Na vigation Outreach ([place] ) Start: 07-26-2024 End: 07-26-2024 Refill Agnes Del Rosario MD Work Phone: [facility] Comment on above: Refill Request Start: 07-23-2024 End: 07-23-2024 Patient encounter procedure Alex Sher DO -[facility] Work Phone: Start: 07-23-2024 End: 07-23-2024 ambulatory Alex Sher Facility:[facility] Start: 07-04-2024 ambulatory Alex Sher Facility :[facility] Start: 07-04-2024 End: 07-04-2024 Admission to same day surgery center Alex Friend DO -Endoscopy Work Phone: Start: 07-04-2024 End: 07-04-[address] Salvador Del Rosario MD Work Phone: [facility] Work Phone: Start: 07-04-2024 Non-patient / Non-visit Alex Calix nd DO -[facility] Start: 06-24-2024 End: 06-28-2024 Telephone encounter Victor Manuel Burrows DO Work Phone: Pulmonology [facility] Comment on above: Appointment Start: 05-21-2024 End: 05-22-2024 Refill Agnes Del Rosario MD Work Phone: [facility] [place] Comment on above: Refill Request Start: 04-16-2024 End: 04-16-2024 Patient encounter procedure Alex Sher DO -[facility] Work Phone: Start: 04-16-2024 End: 04-16-2024 ambulatory Alex Sher Facility:[facility] Start: 04-12-2024 End: 04-13-2024 Refill Agnes Del Rosario MD Work Phone: [facility] Comment on above: Refill Request Start: 04-08-2024 End: 04-08-2024 Patient Outreach Mitchel Walters RN Work Phone: [employer] Comment on above: Weekly phone contact (Recurring) for Transitional Care Management Start: 04-01-2024 End: 04-01-2024 Patient encounter procedure Marilia Orozco APRN.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 Work Phone: [facility] Comment on above: Hospital discharge f ollow-up (Primary Dx); Calculus of bile duct without cholecystitis with obstruction; Fall in home, subsequent encounter; Traumatic ecchymosis of abdominal wall, subsequent encounter Start: 04-01-2024 End: 04-01-2024 ambulatory AGNES DEL ROSARIO Facility:[facility] Start: 03-29-2024 End: 03-29-2024 Patient Outreach Mitchel Walters RN Work Phone: [employer] Comment on above: Transition Of Care ( TCM / OON [place] Comm dc 03/28/24) Initial phone contact for Transitional Care Management Start: 03-28-2024 Non-patient / Non-visit Dr. Altagracia Lo MD -[facility] Work Phone: Start: 03-28-2024 Non-patient / Non-visit Dr. Deena Avalos MD -[facility] Start: 03-27-2024 ambulatory Alex Sher Facility :[facility] Start: 03-27-2024 Non-patient / Non-visit Dr. Altagracia Lo MD -[facility] Work Phone: Start: 03-26-2024 Non-patient / Non-visit Alex Yogi yamileth DO -[facility] Start: 03-26-2024 ambulatory Andrea Serrano [facility] ility:[facility] Start: 03-26-2024 End: 03-28-2024 Evaluation and management of inpatient Dr. Altagracia Lo MD -Progressive Care Unit Work Phone: Start: 03-18-2024 End: 03-18-2024 Refill Agnes Del Rosario MD Work Phone: [facility] Comment on above: Refill Request Start: 02-23-2024 End: 02-23-2024 ambulatory AGNES DEL ROSARIO Facility:[facility] Start: 02-23-2024 End: 02-23-2024 Subsequent hospital visit by physician Xr [facility] [place] Work Phone: Radiology Start: 02-21-2024 End: 02-21-2024 Refill Victor Manuel Burrows DO Work Phone: Pulmonology [facility] Comment on above: Refill Request Start: 02-14-2024 End: 02-14-2024 Patient encounter procedure Marilia Orozco APRN.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 Work Phone: [facility] Comment on above: Upper back pain (Jory flaquito Dx); Immunization due; Right leg swelling Start: 02-14-2024 End: 02-14-2024 ambulatory AGNES DEL ROSARIO Facility:[facility] Start: 02-08-2024 End: 02-08-2024 Telephone encounter Marilia Orozco APRN.CNP Work Phone: [facility] Comment on above: Hillary cellulitis Start: 01-29-2024 End: 01-29-2024 Patient encounter procedure Marilia Orozco APRN.CNP Work Phone: [facility] Comment on above: Cellulitis of right leg (Primary Dx); Tear of medial meniscus of right knee, current, unspecified tear type, initial encounter; Right leg swelling Start: 01-29-2024 End: 01-29-2024 ambulatory AGNES DEL ROSARIO Facility:[facility] Start: 01-26-2024 End: 01-26-2024 Emergency department patient visit Leo Hansen Facility:[facility] Start: 01-26-2024 End: 01-26-2024 ambulatory AGNES DEL ROSARIO Facility:[facility] Start: 01-26-2024 End: 01-26-2024 Subsequent hospital visit by physician [facility] (I-Stat/3t) [facility] Comment on above: Acute pain of right knee [M25.561] Start: 01-24-2024 End: 01-24-2024 Patient encounter procedure Marilia Orozco APRN.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 Work Phone: [facility] Comment on above: Pain and swelling of right lower leg (Primary Dx); Acute pain of right knee Start: 01-24-2024 End: 01-24-2024 ambulatory AGNES DEL ROSARIO Facility:[facility] Start: 01-22-2024 End: 01-22-2024 Telephone encounter Agnes Del Rosario MD Work Phone: [facility] Comment on above: Results Start: 01-22-2024 End: 01-22-2024 Patient encounter procedure Agnes Del Rosario MD Work Phone: [facility] Comment on above: Pain and swelling of right lower leg (Primary Dx); Cellulitis of skin Start: 01-22-2024 End: 01-22-2024 ambulatory AGNES DEL ROSARIO Facility:[facility] Start: 01-19-2024 ambulatory AGNES DEL ROSARIO F acility:[facility] Start: 01-19-2024 End: 01-19-2024 Subsequent hospital visit by physician [facility] Work Phone: Radiology Comment on above: Pain and swelling of right lower leg [M79.661, M79.89] Start: 01-19-2024 End: 01-19-2024 Patient encounter procedure Marilia Orozco APRN.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 Work Phone: [facility] Comment on above: Pain and swelling of right lower leg (Primary Dx) Start: 01-19-2024 End: 01-19-2024 ambulatory AGNES DEL ROSARIO Facility:[facility] Start: 01-18-2024 End: 01-18-2024 ambulatory AGNES DEL ROSARIO Facility:[facility] Start: 01-18-2024 End: 01-18-2024 Subsequent hospital visit by physician Radha [facility] [place] Work Phone: Radiology Comment on above: Acute pain of right knee [M25.561] Start: 01-18-2024 End: 01-18-2024 Patient encounter procedure Joleen Munoz APRN.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 Work Phone: [facility] Comment on above: Pain (Primary Dx) Start: 01-18-2024 End: 01-18-2024 Office outpatient visit 25 minutes Victor Manuel Burrows DO Work Phone: Pulmonology Comment on above: Acute pain of right knee (Primary Dx); History of pulmonary embolism; BMI 38.0-38.9,adult; History of venous thromboembolism; Stage 3a chronic kidney disease (HCC); MARTIN (obstructive sleep apnea) Start: 01-18-2024 End: 01-18-2024 ambulatory VICTOR MANUEL BURRWOS Facility:[facility] Start: 01-17-2024 End: 01-17-2024 ambulatory Yogesh Forman PT Work Phone: [facility] Comment on above: Unsteady gait (Prima ry Dx) Start: 01-16-2024 End: 01-16-2024 ambulatory AGNES DEL ROSARIO Facility:[facility] Start: 01-16-2024 End: 01-16-2024 Patient encounter procedure Echocardiogram Peña Work Phone: Cardiology Comment on above: Other secondary pulm onary hypertension (HCC); History of pulmonary embolism Start: 01-15-2024 End: 01-15-2024 Office outpatient visit 15 minutes Bruna Chowdary APRN-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 Work Phone: [facility] Comment on above: Xerosis cutis (Prima ry Dx); Xerosis cutis; Multiple benign nevi; Lentigo; Seborrheic keratosis Start: 01-10-2024 End: 01-19-2024 Telephone encounter Agnes Del Rosario MD Work Phone: [facility] Comment on above: Disc Request Start: 01-10-2024 End: 01-10-2024 ambulatory Yogesh Golias PT Work Phone: [facility] Comment on above: Unsteady gait (Prima ry Dx) Start: 01-08-2024 End: 01-08-2024 ambulatory Tabby Gibbs RN ENTEROSTOMAL Work Phone: [facility] Comment on above: Unsteady gait (Prima ry Dx) Start: 01-06-2024 End: 01-08-2024 Refill Agnes Del Rosario MD Work Phone: [facility] Comment on above: Refill Request Start: 01-04-2024 End: 01-04-2024 ambulatory Yogesh Golias PT Work Phone: [facility] Comment on above: Unsteady gait (Prima ry Dx) Start: 12-19-2023 End: 12-19-2023 Patient encounter procedure Xuan Pepe MD Work Phone: Vascular Medicine Comment on above: History of venous th romboembolism (Primary Dx); Current use of snf 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; BMI 38.0-38.9,adult; Other secondary pulmonary hypertension (HCC); Lower extremity edema; Stage 3a chronic kidney disease (HCC) Start: 12-18-2023 End: 12-18-2023 ambulatory Yogesh Dkgrace PT Work Phone: [facility] Physical Therapy Comment on above: Unsteady gait (Prima ry Dx); Unsteady gait when walking Start: 11-27-2023 Telephone encounter Xuan Pepe MD Work Phone: Vascular Medicine Comment on above: Appointment Start: 11-22-2023 End: 11-22-2023 Refill Pradhab Kirupaharan DO Work Phone: Pulmonology Comment on above: Refill Request Other secondary pulm onary hypertension (HCC) [I27.29] Start: 11-09-2023 End: 11-09-2023 Office outpatient new 45 minutes Pradhab Kirupaharan DO Work Phone: Pulmonology Comment on above: Other secondary pulm onary hypertension (HCC) (Primary Dx); History of pulmonary embolism Start: 11-09-2023 End: 11-09-2023 ambulatory PRADHAB KIRUPAHARAN Facility:[facility] Start: 11-06-2023 ambulatory Leonila Pino RN Work Phone: [employer] Start: 11-06-2023 Telephone encounter Salvador Del Rosario MD Work Phone: Family Medicine [place] Comment on above: Forms (FMLA paperwor k for patient's spouse) Start: 11-06-2023 Telephone follow-up Leonila holguin RN Work Phone: [employer] Comment on above: Transition Of Care ( tcm d/c follow up ) Weekly phone contact (Recurring) for Transitional Care Management Start: 11-01-2023 Telephone encounter Salvador Del Rosario MD Work Phone: [facility] Comment on above: Patient Update Start: 10-31-2023 Telephone encounter Salvador Del Rosario MD Work Phone: [facility] Medicine [facility] Comment on above: [facility]- verbal orders Start: 10-30-2023 ambulatory Leonila Pino RN Work Phone: [employer] Start: 10-30-2023 End: 10-30-2023 Patient encounter procedure Agnes Del Rosario MD Work Phone: [facility] Comment on above: Acute saddle pulmona ry [...] Care Management Start: 10-26-2023 Telephone encounter Salvador Del Rosario MD Work Phone: [facility] Comment on above: Patient Update Start: 10-23-2023 Evaluation and management of inpatient [facility] Facility:[facility] Start: 10-09-2023 End: 10-09-2023 Patient encounter procedure Sherrell Rouse 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 Work Phone: [facility] Comment on above: Rash (Primary Dx) Start: 09-27-2023 Refill Agnes Del Rosario MD Work Phone: [facility] Comment on above: Refill Request Start: 09-04-2023 Refill Agnes Del Rosario MD Work Phone: [facility] Comment on above: Refill Request Start: 08-01-2023 End: 08-01-2023 Patient encounter procedure Marilia Orozco 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 Work Phone: [facility] Comment on above: Essential hypertensi on, benign (Primary Dx); Prediabetes Start: 07-07-2023 Telephone encounter Salvador Del Rosario MD Work Phone: [facility] Comment on above: Medication Request Start: 07-01-2023 End: 07-01-2023 ambulatory [facility] Work Phone: Start: 07-01-2023 End: 07-01-2023 Patient encounter procedure [facility] Work Phone: Start: 06-22-2023 Telephone encounter Salvador Del Rosario MD Work Phone: [facility] Comment on above: Orders Start: 06-16-2023 End: 06-16-2023 Patient encounter procedure Marilia Orozco APRN.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 Work Phone: [facility] Comment on above: Essential hypertensi on, benign (Primary Dx) Start: 05-15-2023 End: 05-15-2023 Subsequent hospital visit by physician Xr [facility] Work Phone: Radiology Comment on above: 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, M54.41, G89.29] Start: 03-20-2023 Refill Amanda rodriges APRN.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 Work Phone: [facility] Comment on above: Refill Request Start: 03-13-2023 ambulatory Anusha Trevino [facility] Comment on above: Population Health Na vigation Outreach ([facility]) Start: 03-07-2023 Refill Agnes Del Rosario MD Work Phone: [facility] Comment on above: Refill Request Start: 02-07-2023 Refill Agnes Del Rosario MD Work Phone: Radiology Comment on above: Refill Request Start: 01-23-2023 Telephone encounter Bruno Marquez MD Work Phone: Neurology Comment on above: Orders Start: 01-05-2023 ambulatory Bruna Chowdary Facility:[id number] Start: 01-05-[address] Macario Duran III Facility:[id number] Start: 01-05-2023 Office outpatient vi sit 15 minutes Bruna Chowdary Dept. of Dermatology Start: 12-29-2022 End: 12-29-2022 ambulatory Yogesh Forman PT Work Phone: [facility] Comment on above: 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) Start: 12-27-2022 End: 12-27-2022 ambulatory Yogesh Golias PT Work Phone: [facility] Comment on above: 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) Start: 12-22-2022 End: 12-22-2022 ambulatory Yogesh Golias PT Work Phone: [facility] Comment on above: 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) Start: 12-16-2022 End: 12-16-2022 ambulatory Yogesh Golias PT Work Phone: [facility] Comment on above: 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) Start: 12-08-2022 End: 12-08-2022 Celsa Del Rosario MD Work Phone: [facility] Comment on above: 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) Start: 12-06-2022 End: 12-06-2022 ambulatory Yogesh Golias PT Work Phone: [facility] Comment on above: 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) Start: 12-01-2022 End: 12-01-2022 ambulatory Yogesh Golias PT Work Phone: [facility] Comment on above: 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) Start: 11-29-2022 End: 11-29-2022 ambulatory Sherrell O'Himanshu PT [facility] Comment on above: 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) Start: 11-09-2022 Telephone encounter Marilia francis APRN.CNP Work Phone: [facility] Comment on above: Results Start: 11-07-2022 End: 11-07-2022 Patient encounter procedure Echocardiogram Wstr Work Phone: Cardiology Comment on above: Essential hypertensi on, benign; Stage 3b chronic kidney disease (HCC); Bilateral leg edema; ASHD (arteriosclerotic heart disease) Start: 11-03-2022 Telephone encounter Salvador Del Rosario MD Work Phone: [facility] Comment on above: Results Start: 11-02-2022 End: 11-02-2022 Patient encounter procedure Marilia Orozco 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 Work Phone: [facility] Comment on above: Essential hypertensi on, benign (Primary Dx); Hyperlipidemia LDL goal <100; Prediabetes; Acquired hypothyroidism; Stage 3b chronic kidney disease (HCC); Chronic bilateral low back pain with bilateral sciatica; Obesity, Class III, 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); Venous insufficiency (chronic) (peripheral); Bilateral leg edema; MARTIN (obstructive sleep apnea); ASHD (arteriosclerotic heart disease) Start: 06-10-2022 Telephone encounter Scott Pal MD Work Phone: [facility] Comment on above: Medication Request Start: 05-23-2022 End: 05-23-2022 Patient encounter procedure Cole Campos MD Work Phone: [facility] Comment on above: URI, acute (Primary Dx) Start: 05-11-2022 Refill Agnes Del Rosario MD Work Phone: [facility] Comment on above: Refill Request; Refi ll Request Start: 04-13-2022 End: 04-13-2022 Patient encounter procedure Agnes Del Rosario MD Work Phone: [facility] Comment on above: Medicare annual well ness visit, subsequent (Primary Dx); Essential hypertension, benign; Stage 3b chronic kidney disease (HCC); Obesity, Class III, 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); Acquired hypothyroidism; Advance directive discussed with patient; MARTIN (obstructive sleep apnea) Start: 04-11-2022 ambulatory Anusha Trevino [facility] Comment on above: Population Health Na vigation Outreach ([facility] [place] [facility]) Start: 02-11-2022 End: 02-11-2022 Patient encounter procedure Bruno Marquez MD Work Phone: Neurology Comment on above: MARTIN on CPAP (Primary Dx) Start: 02-03-2022 End: 02-03-2022 ambulatory Yogesh Golias PT Work Phone: [facility] Comment on above: 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); Personal history of fall; Age-related physical debility Start: 01-31-2022 End: 01-31-2022 ambulatory [email or web address] Work Phone: [facility] Comment on above: 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); Personal history of fall; Age-related physical debility Start: 01-24-2022 End: 01-24-2022 ambulatory Yogesh [employer] PT Work Phone: [facility] Comment on above: 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); Personal history of fall; Age-related physical debility Start: 01-20-2022 End: 01-20-2022 ambulatory [employer] RN ENTEROSTOMAL Work Phone: [facility] Comment on above: 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); Personal history of fall; Age-related physical debility Start: 01-17-2022 End: 01-17-2022 ambulatory [employer] RN ENTEROSTOMAL Work Phone: [facility] Comment on above: 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); Personal history of fall; Age-related physical debility Start: 01-12-2022 End: 01-12-2022 ambulatory Yogesh Golias PT Work Phone: [facility] Comment on above: 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); Personal history of fall; Age-related physical debility Start: 01-10-2022 End: 01-10-2022 ambulatory Yogesh Golias PT Work Phone: [facility] Comment on above: 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); Personal history of fall; Age-related physical debility Start: 01-04-2022 End: 01-04-2022 ambulatory Tabby Gibbs RN ENTEROSTOMAL Work Phone: [facility] Comment on above: 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); Personal history of fall; Age-related physical debility Start: 12-31-2021 Office outpatient vi sit 15 minutes Bruna Chowdary Dept. of Dermatology Start: 12-29-2021 End: 12-29-2021 ambulatory Xiao Humphrey RN ENTEROSTOMAL Work Phone: [facility] Comment on above: 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); Personal history of fall; Age-related physical debility Start: 12-27-2021 End: 12-27-2021 ambulatory Xiao Humphrey RN ENTEROSTOMAL Work Phone: [facility] Comment on above: 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); Personal history of fall; Age-related physical debility Start: 12-20-2021 End: 12-20-2021 ambulatory Yogesh Golias PT Work Phone: [facility] Comment on above: 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); Personal history of fall; Age-related physical debility Start: 12-17-2021 Refill Agnes Del Rosario MD Work Phone: [facility] Comment on above: Refill Request Start: 12-08-2021 End: 12-08-2021 ambulatory Yogesh Golias PT Work Phone: [facility] Comment on above: Chronic bilateral lo w back pain with bilateral sciatica; At high risk for falls; Age-related physical debility; Personal history of fall Start: 12-02-2021 Telephone encounter Salvador Del Rosario MD Work Phone: [facility] Comment on above: Results Start: 11-11-2021 End: 11-11-2021 Patient encounter procedure Tri Hylton PA-C Work Phone: [facility] Comment on above: Acute otitis externa of right ear, unspecified type (Primary Dx) Start: 10-19-2021 End: 10-19-2021 Nursing evaluation of patient and report [place] Nurse Work Phone: [facility] Comment on above: Need for vaccination (Primary Dx) Start: 10-19-2021 Telephone encounter Salvador Del Rosario MD Work Phone: [facility] Comment on above: Orders Start: 10-05-2021 Refill Agnes Del Roasrio MD Work Phone: [facility] Comment on above: Patient Question; Re fill Request Start: 07-14-2021 Telephone encounter Marilia francis APRN.CNP Work Phone: [facility] Comment on above: Orders Start: 01-01-2021 Office outpatient vi sit 15 minutes Bruna Bort Dept. of Dermatology Start: 01-03-2020 Office outpatient vi sit 15 minutes Bruna Bort Dept. of Dermatology Start: 05-13-2019 Preprocedural examination done Agnes Del Rosario MD Work Phone: [facility] Work Phone: Start: 01-04-2019 Office outpatient vi [...] minutes Bruna Chowdary Dept. of Dermatology Start: 03-09-2015 Office outpatient vi sit 15 minutes Bruna Chowdary Dept. of Dermatology Start: 03-09-2015 Office outpatient vi sit 25 minutes Bruna Chowdary Dept. of Dermatology Start: 02-14-2014 Office outpatient vi sit 15 minutes Bruna Chowdary Dept. of Dermatology Procedures Date Procedure Procedure Detail Performing Clinician Start: 01-30-2025 SKIN / NAIL BIOPSY Bruna Chowdary [employer]SE SUPERVISOR-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 Work Phone: Start: 12-26-[address] Salvador Del Rosario MD Work Phone: Start: 10-23-[address] Yash Del Rosario MD Work Phone: Start: 10-22-2024 Urnls dip stick/tablet reagent auto microscopy Dr. Salvador Del Rosario MD Work Phone: Start: 10-22-[address] Salvador Del Rosario MD Work Phone: Start: 10-22-[address] Salvador Del Rosario MD Work Phone: Start: 10-22-[address] Salvador Del Rosario MD Work Phone: Start: 10-22-2024 Computed tomography of abdomen and pelvis with intravenous contrast Dr. Salvador Del Rosario MD Work Phone: Start: 10-22-2024 X-ray of chest, PA and lateral views Dr. Salvador Del Rosario MD Work Phone: Start: 10-22-[address] Yash Del Rosario MD Work Phone: Start: 10-08-2024 Radex hand minimum 3 views Marilia mueller 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 Work Phone: Start: 10-07-2024 End: 10-07-[address] Salvador Del Rosario MD Work Phone: Start: 10-07-[address] Salvador Del Rosario MD Work Phone: Start: 09-17-2024 X-ray of lumbosacral spine Dr. Elmer Del Rosario MD Work Phone: Start: 08-31-2024 Urnls dip stick/tablet reagent auto microscopy Dr. Salvador Del Rosario MD Work Phone: Start: 08-31-[address] Yash Del Rosario MD Work Phone: Start: 08-31-2024 Computed tomography of abdomen and pelvis with intravenous contrast Dr. Salvador Del Rosario MD Work Phone: Start: 07-04-2024 End: 07-04-[address] Salvador Del Rosario MD Work Phone: Start: 07-04-[address] Salvador Del Rosario MD Work Phone: Start: 03-27-[address] Salvador Del Rosario MD Work Phone: Start: 03-27-[address] Salvador Del Rosario MD Work Phone: Start: 03-27-[address] Salvador Del Rosario MD Work Phone: Start: 03-26-[address] Salvador Del Rosario MD Work Phone: Start: 03-26-2024 US scan of gallbladder Dr. Salvador Del Rosario MD Work Phone: Start: 03-26-2024 Computed tomography of abdomen and pelvis with intravenous contrast Dr. Salvador Del Rosario MD Work Phone: Start: 03-26-2024 CT of head without contrast Dr. Melissa Del Rosario MD Work Phone: Start: 02-14-2024 PFIZER-BIONTECH COVID-19 VACCINE AGE 12+ YR (COMIRNATY) Marilia Podlogar 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 Work Phone: Start: 01-26-2024 Mri any jt lower extrem w/o contrast matrl Marilia Podlogar 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 Work Phone: Start: 01-19-2024 Dup-scan xtr veins unilateral/limited study Marilia Podlogar 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 Work Phone: Start: 01-16-2024 Echo tthrc r-t 2d w/wom-mode compl spec&colr d Avril Ankit DO Work Phone: Start: 11-22-2023 Pulmonary ventilation & perfusion imaging Avril Ankit DO Work Phone: Start: 10-23-2023 Thyrotropin [Units/volume] in Serum or Plasma Bruna Chowdary [employer]SE SUPERVISOR-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 Work Phone: Start: 07-01-2023 MRI of lumbar spine Start: 05-15-2023 Radex spine lumbosacral 2/3 views Marilia Podlognarciso 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 Work Phone: Start: 01-05-2023 Tangential biopsy skin single lesion Bruna Chowdary Start: 11-07-2022 Echo tthrc r-t 2d w/wom-mode compl spec&colr d Marilia Pylelogar 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 Work Phone: Start: 11-07-2022 LVEF TRANSTHORACIC ECHO Marilia Podlognarciso 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 Work Phone: Start: 12-01-2021 Adult depression screening assessment Agnes Del Rosario MD Work Phone: Start: 07-30-2020 Adult depression screening assessment Agnes Del Rosario MD Work Phone: Start: 11-22-2017 Destruction benign lesions up to 14 Bruna Chowdary Start: 11-22-2017 Established Office Visit Level 4 Bruna Chowdary Start: 02-11-2016 Destruction premalignant lesion 1st Bruna Chowdary Start: 03-09-2015 Bx skin subcutaneous&/mucous membrane 1 lesion Bruna Chowdary Start: 03-09-2015 Established Office Visit Level 4 Bruna Chowdary History of decompres kenny of median nerve S/P carpal tunnel release Dr. Salvador Del Rosario MD Work Phone: Comment on above: Bilateral. Plan of Treatment Date Care Activity Detail Author Start: 07-31-2029 DTaP/Tdap/Td Vaccines (3 - Td or Tdap) DTaP/Tdap/Td Vaccines (3 - Td or Tdap) [facility] Start: 07-31-2029 Urine microalbumin profile [facility] Start: 08-16-2027 Diabetes Screening Diabetes Screening [facility] Start: 10-26-2026 Diabetes Screening Diabetes Screening [facility] Start: 10-25-2026 Diabetes Screening Diabetes Screening [facility] Start: 07-31-2026 Diabetes Screening Diabetes Screening [facility] Start: 05-15-2026 Diabetes Screening Diabetes Screening [facility] Start: 11-03-2025 End: 11-03-2025 Patient encounter procedure 11/03/2025 10:40 AM EDT Office Visit Neurology [address] [place] [address] Bruno Marquez Jr., MD [address] [place] [address] 1 year cpap appt Neurology Comment on above: 1 year cpap appt Start: 11-02-2025 DIABETES SCREEN DIABETES SCREEN [facility] Start: 11-02-2025 Diabetes Screening Diabetes Screening [facility] Start: 10-28-2025 Annual PCP Team Chronic Disease Visit Annual PCP Team Chronic Disease Visit [facility] Start: 10-08-2025 Annual PCP Team Chronic Disease Visit Annual PCP Team Chronic Disease Visit [facility] Start: 10-08-2025 BP Controlled (<130/80) BP Controlled (<130/80) [facility] in Start: 08-15-2025 Creatinine measurement Serum Creatinine [facility] Start: 08-15-2025 Diabetes mellitus screening Diabetes Screening [facility] Start: 08-15-2025 Hemoglobin A1c measurement Diabetes: Hemoglobin A1C [facility] Start: 08-15-2025 Hepatitis B surface antibody level LDL Cholesterol [facility] Start: 08-13-2025 Annual PCP Team Chronic Disease Visit Annual PCP Team Chronic Disease Visit [facility] Start: 04-13-2025 DIABETES SCREEN DIABETES SCREEN [facility] Start: 04-01-2025 Annual PCP Team Chronic Disease Visit Annual PCP Team Chronic Disease Visit [facility] Start: 02-13-2025 Annual PCP Team Chronic Disease Visit Annual PCP Team Chronic Disease Visit [facility] Start: 02-12-2025 End: 02-12-2025 Patient encounter procedure 02/12/2025 3:00 PM EDT Office Visit Family [facility] [address] [place], [place] [id number] Marilia Orozco APRN.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 [address] [place] [address] 6 month follow up [facility] [place] Comment on above: 6 month follow up Start: 01-28-2025 Annual PCP Team Chronic Disease Visit Annual PCP Team Chronic Disease Visit [facility] Start: 01-24-2025 End: 01-24-2025 Patient encounter procedure 01/24/2025 11:00 AM EDT Office Visit [facility] [address] [place] [address] [address] [place] [id number] Bruna Chowdary APRN-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 [address] [place] [address] [address] [place] [address] [facility] Start: 01-23-2025 Annual PCP Team Chronic Disease Visit Annual PCP Team Chronic Disease Visit [facility] Start: 01-21-2025 Annual PCP Team Chronic Disease Visit Annual PCP Team Chronic Disease Visit [facility] Start: 01-21-2025 BP Controlled (<130/80) BP Controlled (<130/80) [facility] Start: 01-18-2025 Annual PCP Team Chronic Disease Visit Annual PCP Team Chronic Disease Visit [facility] Start: 01-18-2025 Complete blood count Hemoglobin/Hematocrit [facility] Start: 01-17-2025 BP Controlled (<130/80) BP Controlled (<130/80) [facility] Start: 12-30-2024 COVID-19 Vaccine ( season) COVID-19 Vaccine ( season) [facility] Start: 12-30-2024 Influenza vaccination Influenza Vaccine (#1) [facility] Start: 12-26-2024 Endoscopic retrograde cholangiopancreatography ERCP Biliary/Pancreas [facility] Start: 12-26-2024 Fluoroscopic guidance O.R. Fluoro for C-Arm [facility] Start: 12-26-2024 Patient discharge [facility] Start: 12-01-2024 DIABETES SCREEN DIABETES SCREEN [facility] Start: 10-31-2024 End: 10-31-2024 Patient encounter procedure 10/31/2024 11:00 AM EDT Office Visit Neurology [address] [place] [address] Ghazala Kumar APRN.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 [address] [place] [address] annual renewal for CPAP machine Neurology Comment on above: annual renewal for CPAP machine Start: 10-29-2024 Annual PCP Team Chronic Disease Visit Annual PCP Team Chronic Disease Visit [facility] Start: 10-28-2024 End: 10-28-2024 Patient encounter procedure 10/28/2024 1:20 PM EDT Office Visit [facility] [place] [address] [place] [address] Marilia Orozco APRN.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 [address] [place] [address] discharged from Out of [facility] Comment on above: discharged from Out of [facility] Start: 10-26-2024 Creatinine measurement Serum Creatinine [facility] Start: 10-25-2024 Complete blood count Hemoglobin/Hematocrit [facility] Start: 10-25-2024 Creatinine measurement Serum Creatinine [facility] Start: 10-24-2024 Patient discharge [facility] Start: 10-23-2024 Following clinical pathway protocol [facility] Start: 10-22-2024 Bacteria identified in Blood by Culture Blood Culture [facility] Start: 10-22-2024 Blood culture Blood Culture [facility] Start: 10-22-2024 Diabetes mellitus screening Diabetes Screening [facility] Start: 10-22-2024 Hemoglobin A1c measurement Diabetes: Hemoglobin A1C [facility] Start: 10-22-2024 Thyroid stimulating hormone measurement TSH Level [facility] Start: 10-22-2024 Care planning and problem solving actions [facility] Start: 10-22-2024 End: 10-22-2024 ambulatory Pulmonology [facility] Comment on above: 9 MONTH F/U Start: 10-22-2024 Application of intermittent pneumatic compression device [facility] Start: 10-22-2024 Following clinical pathway protocol [facility] Start: 10-22-2024 Assessment of risk of venous thromboembolism [facility] Start: 10-22-2024 Documentation procedure [facility] Start: 10-22-2024 Insertion of catheter into peripheral vein [facility] Start: 10-22-2024 Measuring intake and output [facility] Start: 10-22-2024 Providing care according to standard [facility] Start: 10-22-2024 Provision of activity privileges [facility] Start: 10-22-2024 Referral to gastroenterology service [facility] Start: 10-22-2024 Referral to service [facility] Start: 10-22-2024 [facility] Start: 10-22-2024 Hospital admission, emergency, from emergency room, medical nature [facility] Start: 10-22-2024 Magnetic resonance cholangiopancreatography MRCP Abdomen without Contrast [facility] Start: 10-22-2024 Verification routine [facility] Start: 10-22-2024 Admission procedure [facility] Start: 10-22-2024 [facility] Start: 10-22-2024 End: 10-22-2024 [facility] Start: 10-21-2024 End: 10-22-2024 [facility] Start: 10-21-2024 End: 10-21-2024 ambulatory 10/21/2024 1:00 PM EDT [facility] Pulmonary Medicine [address] [place] [address] [place] [address] [place] [address] 9 MONTH F/U Pulmonary Medicine Comment on above: 9 MONTH F/U Start: 10-07-2024 Egd flex removal lesion(s) by hot biopsy forceps EGD CAUTERY TUMOR POLYP [facility] Start: 10-07-2024 Ercp stent placement biliary/pancreatic duct ERCP DUCT STENT PLACEMENT [facility] Start: 10-07-2024 Endoscopic retrograde cholangiopancreatography ERCP Biliary/Pancreas [facility] Start: 10-07-2024 RF Guidance for endoscopy of Biliary ducts and Pancreatic duct-- W contrast retrograde [facility] Start: 10-07-2024 Patient discharge [facility] Start: 09-27-2024 End: 12-27-2024 Thyrotropin [Units/volume] in Serum or Plasma THYROID STIMULATING HORMONE Lab Routine Acquired hypothyroidism Expected: 09/27/2024, Expires: 12/27/2024 [facility] Work Phone: Comment on above: Expected: 09/27/2024, Expires: Start: 09-27-2024 End: 09-27-2024 ambulatory 09/27/2024 9:00 AM EDT Results Only [facility] [address] [place] [address] [facility] Start: 09-25-2024 End: 09-25-2024 ambulatory 09/25/2024 8:30 AM EDT [facility] Pulmonology [address] [place] [address] Victor Manuel Burrows, [address] [place] [address] 9 MONTH F/U R/S from 10-21 Pulmonology Comment on above: 9 MONTH F/U R/S from 10-21 Start: 09-17-2024 X-ray of lumbosacral spine L/S Spine Min 4 Views [facility] Start: 09-17-2024 XR Spine Lumbar and Sacrum GE 4 Views [facility] Start: 08-31-2024 [facility] Start: 08-14-2024 Covid-19 Vaccine () Covid-19 Vaccine () [facility] Start: 08-13-2024 End: 11-12-2024 Comprehensive metabolic 2000 panel - Serum or Plasma COMPREHENSIVE METABOLIC PANEL Lab Routine Essential hypertension, benign Hyperlipidemia LDL goal <100 Stage 3b chronic kidney disease (HCC) Expected: 08/13/2024, Expires: 11/12/2024 [facility] Comment on above: Expected: 08/13/2024, Expires: Start: 08-13-2024 End: 11-12-2024 Hemoglobin A1c in Blood HEMOGLOBIN A1C Lab Routine Prediabetes Expected: 08/13/2024, Expires: 11/12/2024 [facility] Comment on above: Expected: 08/13/2024, Expires: Start: 08-13-2024 End: 11-12-2024 Lipid 1996 panel - Serum or Plasma LIPID PANEL, FASTING Lab Routine Hyperlipidemia LDL goal <100 Expected: 08/13/2024, Expires: 11/12/2024 [facility] Work Phone: Comment on above: Expected: 08/13/2024, Expires: Start: 08-13-2024 End: 11-12-2024 Thyrotropin [Units/volume] in Serum or Plasma THYROID STIMULATING HORMONE Lab Routine Acquired hypothyroidism Expected: 08/13/2024, Expires: 11/12/2024 [facility] Comment on above: Expected: 08/13/2024, Expires: Start: 08-13-2024 End: 08-13-2024 Patient encounter procedure 08/13/2024 11:40 AM EDT Office Visit [facility] [place] [address] [place] [address] Marilia Orozco APRN.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 [address] [facility] [place] [address] annual wellness [facility] [place] Comment on above: annual wellness Start: 08-02-2024 End: 08-02-2024 Patient encounter procedure 08/02/2024 12:20 PM EDT Office Visit [facility] [place] [address] [place] [address] Agnes Del Rosario MD [address] [place], [place] [id number] Medicare wellness [facility] Comment on above: Medicare wellness Start: 07-31-2024 Annual PCP Team Chronic Disease Visit Annual PCP Team Chronic Disease Visit [facility] Start: 07-12-2024 DIABETES SCREEN DIABETES SCREEN [facility] Start: 07-04-2024 Egd transoral biopsy single/multiple EGD BIOPSY SINGLE/MULTIPLE [facility] Start: 07-04-2024 Ercp remove calculi/debris biliary/pancreas duct ERCP REMOVE DUCT CALCULI [facility] Start: 07-04-2024 Ercp remove foreign body/stent biliary/panc duct ERCP REMOVE FORGN BODY DUCT [facility] Start: 07-04-2024 Ercp w/sphincterotomy/papillotomy ENDO CHOLANGIOPANCREATOGRAPH [facility] Start: 07-04-2024 Patient discharge [facility] Start: 07-02-2024 End: 07-02-2024 Patient encounter procedure 07/02/2024 12:30 PM EST Office Visit Vascular Medicine [address] [place] [address] Xuan Gómez MD [address] [place], [place] [id number] Return in about 6 months (around 06/20/2024). Vascular Medicine Comment on above: Return in about 6 months (around 06/20/19). Start: 06-16-2024 Annual PCP Team Chronic Disease Visit Annual PCP Team Chronic Disease Visit [facility] Start: 05-15-2024 Creatinine measurement Serum Creatinine [facility] Start: 05-01-2024 Advance Directive Discussion Advance Directive Discussion [facility] Start: 04-01-2024 End: 04-01-2024 Patient encounter procedure 04/01/2024 12:00 PM EST Office Visit [facility] [place] [address] [place], [place] [id number] Marilia Orozco APRN.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 [address] [place] [address] [facility] follow up 03/26-03/28 [facility] [place] Comment on above: [facility] follow up 03/26-03/28 Start: 03-28-2024 Patient discharge [facility] Start: 03-27-2024 Application of intermittent pneumatic compression device [facility] Start: 03-27-2024 Referral to general surgeon [facility] Start: 03-26-2024 Ambulation without limitation [facility] Start: 03-26-2024 Assessment of risk of venous thromboembolism [facility] Start: 03-26-2024 Incentive spirometry [facility] Start: 03-26-2024 Insertion of catheter into peripheral vein [facility] Start: 03-26-2024 Oxygen therapy [facility] Start: 03-26-2024 Providing care according to standard [facility] Start: 03-26-2024 [facility] Start: 03-26-2024 Referral to gastroenterology service [facility] Start: 03-26-2024 Following clinical pathway protocol [facility] Start: 03-26-2024 Admission procedure [facility] Start: 03-12-2024 End: 03-12-2024 Patient encounter procedure 03/12/2024 8:00 AM EST Office Visit Vascular Medicine [address] [place] [address] Xuan Gómez MD [address] [place] [address] 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 Requesting flu & covid vaccine [facility] Comment on above: Hillary leg cellulitis. Requesting flu & co vid vaccine Start: 02-09-2024 End: 02-09-2024 ambulatory 02/09/2024 2:00 PM EDT OT/PT/Speech Visit [facility] [address] [place] [address] Yogesh Forman, PT [address] [place] [address] R26.81 (ICD-10-CM) - Unsteady gait when walking [facility] Comment on above: R26.81 (ICD-10-CM) - Unsteady gait when walking Start: 02-02-2024 End: 02-02-2024 ambulatory 02/02/2024 1:15 PM EDT OT/PT/Speech Visit [facility] [address] [place] [address] Tabby Gibbs, RN ENTEROSTOMAL [address] [place] [address] R26.81 (ICD-10-CM) - Unsteady gait when walking [facility] Comment on above: R26.81 (ICD-10-CM) - Unsteady gait when walking Start: 02-01-2024 End: 05-02-2024 Potassium [Moles/volume] in Serum or Plasma POTASSIUM Lab Routine Cellulitis of right leg Expected: 02/01/2024, Expires: 05/02/2024 [facility] Work Phone: Comment on above: Expected: 02/01/2024, Expires: Start: 01-29-2024 End: 01-29-2024 Patient encounter procedure 01/29/2024 11:20 AM EDT Office Visit [facility] [place] [address] [place] [address] Marilia Orozco APRN.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 [address] [place] [address] follow up [facility] [place] Comment on above: follow up Start: 01-29-2024 End: 01-29-2024 ambulatory 01/29/2024 10:30 AM EDT OT/PT/Speech Visit [facility] [address] [place] [address] Yogesh Forman, PT [address] [place] [address] R26.81 (ICD-10-CM) - Unsteady gait when walking [facility] Comment on above: R26.81 (ICD-10-CM) - Unsteady gait when walking Start: 01-25-2024 End: 01-25-2024 ambulatory 01/25/2024 10:45 AM EDT OT/PT/Speech Visit [facility] [address] [place] [address] Yogesh Forman, PT [address] [place] [address] R26.81 (ICD-10-CM) - Unsteady gait when walking [facility] Comment on above: R26.81 (ICD-10-CM) - Unsteady gait when walking Start: 01-24-2024 End: 01-24-2024 Patient encounter procedure 01/24/2024 12:40 PM EDT Office Visit Family Medicine [place] [address] [place] [address] Marilia Orozco APRN.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 [address] [place] [address] follow up cellulitis [facility] [place] Comment on above: follow up cellulitis Start: 01-22-2024 End: 01-22-2024 ambulatory 01/22/2024 3:00 PM EDT [facility] [address] [place] [address] Yogesh Forman, PT [address] [place] [address] R26.81 (ICD-10-CM) - Unsteady gait when walking [facility] Comment on above: R26.81 (ICD-10-CM) - Unsteady gait when walking Start: 01-22-2024 End: 01-22-2024 Patient encounter procedure 01/22/2024 11:20 AM EDT Office Visit Family Medicine [place] [address] [place], [place] [id number] Agnes Del Rosario MD [address] [place], [place] [id number] Derm follow up [facility] [place] Comment on above: Derm follow up Start: 01-19-2024 End: 01-19-2024 Patient encounter procedure 01/19/2024 6:30 PM EDT Appointment Radiology [address] [place] [address] Pain and swelling of right lower leg [M79.661, M79.89] Radiology Comment on above: Pain and swelling of right lower leg [M7 9.661, M79.89] Start: 01-18-2024 End: 01-18-2024 Patient encounter procedure 01/18/2024 9:00 AM EDT Office Visit Pulmonology [address] [place] [address] [place] [address] [place] [address] 2 month f/u Pulmonology Comment on above: 2 month f/u Start: 01-17-2024 End: 01-17-2024 ambulatory 01/17/2024 3:15 PM EDT OT/PT/Speech Visit [facility] [address] [place] [address] Yogesh Forman, PT [address] [place] [address] R26.81 (ICD-10-CM) - Unsteady gait when walking [facility] Comment on above: R26.81 (ICD-10-CM) - Unsteady gait when walking Start: 01-16-2024 End: 01-16-2024 Patient encounter procedure 01/16/2024 1:00 PM EDT Office Visit Cardiology [address] [address] echo Cardiology Comment on above: echo Start: 01-15-2024 End: 01-15-2024 ambulatory 01/15/2024 8:45 AM EDT OT/PT/Speech Visit [facility] [address] [place] [address] Tabby Gibbs, RN ENTEROSTOMAL [address] [place] [address] R26.81 (ICD-10-CM) - Unsteady gait when walking [facility] Comment on above: R26.81 (ICD-10-CM) - Unsteady gait when walking Start: 01-10-2024 End: 01-10-2024 ambulatory 01/10/2024 10:00 AM EDT OT/PT/Speech Visit [facility] [address] [place] [address] Yogesh Forman, PT [address] [place] [address] R26.81 (ICD-10-CM) - Unsteady gait when walking [facility] Comment on above: R26.81 (ICD-10-CM) - Unsteady gait when walking Start: 01-08-2024 End: 01-08-2024 ambulatory 01/08/2024 9:30 AM EDT OT/PT/Speech Visit [facility] [address] [place] [address] Tabby Gibbs, RN ENTEROSTOMAL [address] [place] [address] R26.81 (ICD-10-CM) - Unsteady gait when walking [facility] Comment on above: R26.81 (ICD-10-CM) - Unsteady gait when walking Start: 01-04-2024 End: 01-04-2024 ambulatory 01/04/2024 3:45 PM EDT OT/PT/Speech Visit [facility] [address] [place] [address] Yogesh Forman, PT [address] [place] [address] R26.81 (ICD-10-CM) - Unsteady gait when walking [facility] Comment on above: R26.81 (ICD-10-CM) - Unsteady gait when walking Start: 12-31-2023 COVID-19 Vaccine ( season) COVID-19 Vaccine ( season) [facility] Start: 12-31-2023 Covid-19 Vaccine ( season) Covid-19 Vaccine ( season) [facility] Start: 12-31-2023 Covid-19 Vaccine ( season) Covid-19 Vaccine ( season) [facility] Start: 12-31-2023 Influenza vaccination Influenza Vaccine (#1) [facility] Start: 12-19-2023 End: 12-19-2023 Patient encounter procedure 12/19/2023 2:30 PM EDT Office Visit Vascular Medicine [address] [place] [address] Xuan Gó[place] [address] [place] [id number] 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] Vascular Medicine Comment on above: Other secondary pulmonary hypertension ( HCC) [I27.29] Start: 12-18-2023 End: 12-18-2023 ambulatory 12/18/2023 8:30 AM EDT OT/PT/Speech Visit [facility] [address] [place] [address] Yogesh Forman, PT [address] [place] [address] Unsteady gait when walking [facility] Comment on above: Unsteady gait when walking Start: 12-12-2023 End: 12-12-2023 Patient encounter procedure 12/12/2023 9:40 AM EDT Office Visit Cardiology [address] [address] echo Cardiology Comment on above: echo Start: 11-22-2023 Subsequent hospital visit by physician 11/22/2023 1:25 PM EDT Hospital Encounter [facility] [address] [place] [address] 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] [facility] Comment on above: Other secondary pulmonary hypertension ( HCC) [I27.29] Start: 11-09-2023 End: 11-09-2023 Patient encounter procedure Pulmonology Comment on above: Saddle PE, severe pulmonary hypertension - sched with another provider due to sooner avail Start: 11-03-2023 ANNUAL PCP TEAM CHRONIC DISEASE VISIT ANNUAL PCP TEAM CHRONIC DISEASE VISIT [facility] Start: 11-03-2023 Complete blood count Hemoglobin/Hematocrit [facility] Start: 11-03-2023 HEMOGLOBIN/HEMATOCRIT HEMOGLOBIN/HEMATOCRIT [facility] Start: 11-03-2023 Hepatitis B surface antibody level LDL CHOLESTEROL [facility] Start: 11-03-2023 SERUM CREATININE SERUM CREATININE [facility] Start: 10-31-2023 End: 10-31-2023 Patient encounter procedure 10/31/2023 9:40 AM EDT Office Visit Family Medicine [place] [address] [place] [address] PodlogarMarilia APRN.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 [address] [place] [address] 3 month follow up Family [place] Comment on above: 3 month follow up Start: 10-30-2023 End: 01-29-2024 PT panel - Platelet poor plasma by Coagulation assay PROTHROMBIN TIME Lab STAT Acute saddle pulmonary embolism, unspecified whether acute cor pulmonale present (HCC) Expected: 10/30/2023, Expires: 01/29/2024 [facility] Work Phone: Comment on above: Expected: 10/30/2023, Expires: Start: 10-30-2023 End: 10-30-2023 Patient encounter procedure 10/30/2023 1:20 PM EDT Office Visit Family [place] [address] [place] [id number] Agnes Del Rosario MD [address] [facility] [place] [address] 40 min hospital follow up Family [facility] [place] Comment on above: 40 min hospital follow up Start: 09-13-2023 Covid-19 Vaccine () Covid-19 Vaccine () [facility] Start: 05-23-2023 BP CONTROLLED (<130/80) BP CONTROLLED (<130/80) [facility] Start: 05-01-2023 Advance Directive Discussion Advance Directive Discussion [facility] Start: 05-01-2023 Behavioral Health Screening Behavioral Health Screening [facility] Start: 05-01-2023 Depression Assessment Depression Assessment [facility] Start: 04-13-2023 ANNUAL PCP TEAM CHRONIC DISEASE VISIT ANNUAL PCP TEAM CHRONIC DISEASE VISIT [facility] Start: 04-13-2023 Medicare Annual Wellness Visit Medicare Annual Wellness Visit [facility] Start: 04-13-2023 SERUM CREATININE SERUM CREATININE [facility] Start: 02-11-2023 BP CONTROLLED (<130/80) BP CONTROLLED (<130/80) [facility] Start: 12-30-2022 Covid-19 Vaccine () Covid-19 Vaccine () [facility] Start: 12-30-2022 Influenza vaccination [facility] Start: 12-01-2022 Adult depression screening assessment DEPRESSION SCREENING [facility] Start: 12-01-2022 ANNUAL PCP TEAM CHRONIC DISEASE VISIT ANNUAL PCP TEAM CHRONIC DISEASE VISIT [facility] Start: 12-01-2022 SERUM CREATININE SERUM CREATININE [facility] Start: 07-12-2022 ANNUAL PCP TEAM CHRONIC DISEASE VISIT ANNUAL PCP TEAM CHRONIC DISEASE VISIT [facility] Start: 07-12-2022 BP CONTROLLED (<130/80) BP CONTROLLED (<130/80) [facility] Start: 07-12-2022 HEMOGLOBIN/HEMATOCRIT HEMOGLOBIN/HEMATOCRIT [facility] Start: 07-12-2022 Hepatitis B surface antibody level LDL CHOLESTEROL [facility] Start: 07-12-2022 SERUM CREATININE SERUM CREATININE [facility] Start: 06-19-2022 COVID-19 VACCINE (7 - Pfizer series) COVID-19 VACCINE (7 - Pfizer series) [facility] Start: 05-23-2022 End: 06-06-2022 Influenza virus A and B RNA and SARS-CoV-2 (COVID-19) N gene panel - Respiratory specimen by DANNIELLE with probe detection [facility] Work Phone: Comment on above: Expected: 05/23/2022, Expires: 3 Start: 05-01-2022 ADVANCE DIRECTIVE DISCUSSION ADVANCE DIRECTIVE DISCUSSION [facility] Start: 05-01-2022 DEPRESSION ASSESSMENT DEPRESSION ASSESSMENT [facility] Start: 12-30-2021 Influenza vaccination INFLUENZA (#1) [facility] Start: 12-14-2021 SHINGRIX VACCINE (3 of 3) SHINGRIX VACCINE (3 of 3) [facility] Start: 12-02-2021 End: 02-01-2022 Comprehensive metabolic 2000 panel - Serum or Plasma COMP METABOLIC PANEL Lab Routine Stage 3b chronic kidney disease (HCC) Expected: 12/02/2021, Expires: 02/01/2022 [facility] Work Phone: Comment on above: Expected: 12/02/2021, Expires: 2 Start: 11-17-2021 COVID-19 VACCINE (5 - Booster for Pfizer series) COVID-19 VACCINE (5 - Booster for Pfizer series) [facility] Start: 07-30-2021 Adult depression screening assessment DEPRESSION SCREENING [facility] Start: 07-30-2021 BP CONTROLLED (<130/80) BP CONTROLLED (<130/80) [facility] Start: 05-01-2021 ADVANCE DIRECTIVE DISCUSSION ADVANCE DIRECTIVE DISCUSSION [facility] Start: 05-01-2021 DEPRESSION ASSESSMENT DEPRESSION ASSESSMENT [facility] Start: 04-29-2013 SHINGRIX VACCINE (2 of 3) SHINGRIX [facility]ACCINE (2 of 3) [facility] Start: 2004 RSV Vaccine (1 - 1-dose 60+ series) RSV Vaccine (1 - 1-dose 60+ series) [facility] Start: 1962 Anxiety Screening Anxiety Screening [facility] Start: 1962 Depression Screening Depression Screening [facility] Start: 1962 Hepatitis C screening Hepatitis C Screening [facility] Start: 1944 Creatinine measurement Creatinine Level [facility] Start: 1944 Echocardiography Echocardiogram [facility] Start: 1944 Lipid panel Lipid Panel [facility] Start: 1944 Medicare Annual Wellness Visit Medicare Annual Wellness Visit (AWV) [facility] Start: 1944 Potassium measurement Potassium Level [facility] Bilirubin measurement, urine [facility] Dermatopathology- DERM LAB [place] [facility]- DERM LAB Pathology and Cytology Timed Neoplasm of uncertain behavior of skin Release Upon Ordering for 1 Occurrences starting 01/30/2025 [facility] Service Area Work Phone: Comment on above: Release Upon Ordering for 1 Occurrences starting 01/30/2025 End: 11-03-2023 Echocardiography ECHO Cardiology Routine Essential hypertension, benign Stage 3b chronic kidney disease (HCC) Bilateral leg edema ASHD (arteriosclerotic heart disease) 1 Occurrences starting 11/02/2022 until 11/03/2023 [facility] Work Phone: Comment on above: 1 Occurrences starting 11/02/2022 until 11/03/2023 End: 11-08-2024 Echocardiography ECHO Cardiology Routine Other secondary pulmonary hypertension (HCC) History of pulmonary embolism 1 Occurrences starting 11/09/2023 until 11/08/2024 [facility] Comment on above: 1 Occurrences starting 11/09/2023 until 11/08/2024 Hemoglobin [Presence ] in Urine [facility] Hemoglobin A1c/Hemoglobin.total in Blood HEMOGLOBIN A1C (POC) Lab Routine Prediabetes Ordered: 08/01/2023 [facility] Work Phone: Comment on above: Ordered: 08/01/2023 Hzv zoster vacc georgiana mbinant adjuvanted im njx ZOSTER VACC RECOMBINANT,IM Immunization/Injection Routine Need for vaccination Ordered: 10/19/2021 [facility] Work Phone: Comment on above: Ordered: 10/19/2021 Measurement of keton es in urine using dipstick [facility] Microscopic urinalysis [facility] End: 02-22-2025 MR Knee - right WO contrast MRI KNEE WO IVCON RIGHT Radiology Routine Acute pain of right knee 1 Occurrences starting 01/24/2024 until 02/22/2025 [facility] Work Phone: Comment on above: 1 Occurrences starting 01/24/2024 until 02/22/2025 End: 12-08-2024 NM Lung Ventilation and Perfusion NM LUNG VENT / PERF VQ Radiology Routine Other secondary pulmonary hypertension (HCC) 1 Occurrences starting 11/09/2023 until 12/08/2024 [facility] Work Phone: Comment on above: 1 Occurrences starting 11/09/2023 until 12/08/2024 Patient Education [facility] Work Phone: Patient referral [facility] Work Phone: pH of Urine [facility] PT ED NEPHROLOGY PT ED NEPHROLOG Y Other 10/30/2023 [facility] Work Phone: PT PLAN OF CARE CERTIFICATION PT PLAN OF CARE CERTIFICATION Procedures Routine Chronic bilateral low back pain with bilateral sciatica At high risk for falls Age-related physical debility Personal history of fall Ordered: 12/09/2021 [facility] Work Phone: Comment on above: Ordered: 12/09/2021 PT PLAN OF CARE CERTIFICATION PT PLAN OF CARE CERTIFICATION Procedures Routine Chronic bilateral low back pain with bilateral sciatica Ordered: 11/29/2022 [facility] Comment on above: Ordered: 11/29/[address] [facility] Urine blood test [facility] Urine culture [facility] Urine dipstick for glucose [facility] Urine dipstick for l eukocyte esterase [facility] Urine dipstick for nitrite [facility] Urine dipstick for protein [facility] Urine examination [facility] Urine microscopy: ep ithelial cells [facility] Urine Microscopy: white cells [facility] Urobilinogen [Presen ce] in Urine [facility] End: 02-16-2025 XR Knee - right 4 Views XR KNEE GENERAL 4V AP BOTH/PA BOTH/LAT/MERC RIGHT Radiology Routine Acute pain of right knee 1 Occurrences starting 01/18/2024 until 02/16/2025 [facility] Work Phone: Comment on above: 1 Occurrences starting 01/18/2024 until 02/16/2025 XR Knee - right 4 Views XR KNEE GENERAL 4V AP BOTH/PA BOTH/LAT/MERC RIGHT Radiology Routine Acute pain of right knee 01/18/2024 12:32 PM EDT [facility] Immunizations Immunization Date Immunization Notes Care Provider Austen potter 02-14-2024 COVID-19 vaccine, ag e 12+ yr ([facility] Marilia Podlognarciso SUGAR HOUSE SUPERVISOR.RUBÉN Work Phone: [facility] 02-14-2024 influenza, high dose seasonal, preservative-free Marilia Podlogar 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 Work Phone: [facility] 02-14-2024 influenza virus vaccine, unspecified formulation Bruno Marquez Jr., MD Work Phone: [facility] 05-15-2023 COVID-19 vaccine, ag e 12+ yr, season (PFIZER-BIONTECH) Marilia Podlogar 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 Work Phone: [facility] 05-15-2023 influenza (HD-IIV4) vaccine, age 65+ yr, high dose, quadrivalent, PF (FLUZONE HIGH-DOSE) Marilia Podlogar 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 Work Phone: [facility] 05-15-2023 influenza virus vaccine, unspecified formulation Leonila Pino RN Work Phone: [facility] 05-06-2023 respiratory syncytia l virus (RSV) vaccine, adjuvanted (AREXVY) Marilia Podlogar 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 Work Phone: [facility] 03-03-2022 zoster vaccine recombinant Anusha Trevino MA [facility] 02-16-2022 Covid Pfizer Bivalen t Booster Dr. Salvador Del Rosario MD Work Phone: [facility] 02-16-2022 influenza, high-dose , quadrivalent vaccine (FLUZONE HIGH DOSE QUADRIVALENT) Agnes Del Rosario MD Work Phone: [facility] 02-16-2022 influenza virus vaccine, unspecified formulation Bruno Marquez Jr., MD Work Phone: [facility] 10-19-2021 zoster vaccine recombinant Mi Nurse Work Phone: [facility] Work Phone: 09-22-2021 COVID-19 original vaccine, age 12+ yr, monovalent (PFIZER-BIONTECH - AGUIAR TOP) Agnes Del Rosario MD Work Phone: [facility] 09-22-2021 COVID-19 vaccine, ag e 12+ yr (PFIZER-BIONTECH - PURPLE TOP) Agnes Del Rosario MD Work Phone: [facility] 02-01-2021 Covid (Pfizer) Dr. Elmer Del Rosario MD Work Phone: [facility] 01-12-2021 influenza, high-dose , quadrivalent vaccine (FLUZONE HIGH DOSE QUADRIVALENT) Agnes Del Rosario MD Work Phone: [facility] 07-17-2020 COVID-19 vaccine, ag e 12+ yr (PFIZER-BIONTECH - PURPLE TOP) Agnes Del Rosario MD Work Phone: [facility] 06-26-2020 COVID-19 vaccine, ag e 12+ yr (PFIZER-BIONTECH - PURPLE TOP) Agnes Del Rosario MD Work Phone: [facility] 02-22-2020 influenza, high-dose , quadrivalent vaccine (FLUZONE HIGH DOSE QUADRIVALENT) Agnes Del Rosario MD Work Phone: [facility] 08-01-2019 tetanus toxoid, redu sakshi diphtheria toxoid, and acellular pertussis vaccine, adsorbed Agnes Del Rosario MD Work Phone: [facility] 02-05-2019 influenza, high dose seasonal, preservative-free Agnes Del Rosario MD Work Phone: [facility] 01-29-2018 influenza virus vaccine, unspecified formulation Agnes Del Rosario MD Work Phone: [facility] 06-09-2017 influenza, high dose seasonal, preservative-free Agnes Del Rosario MD Work Phone: [facility] Work Phone: 05-10-2016 pneumococcal conjuga te vaccine, 13 valent Agnes Del Rosario MD Work Phone: [facility] 02-20-2016 influenza, high dose seasonal, preservative-free Agnes Del Rosario MD Work Phone: [facility] 01-21-2016 Influenza virus vaccine [facility] 02-19-2015 influenza, high dose seasonal, preservative-free Agnes Del Rosario MD Work Phone: [facility] Work Phone: 02-05-2014 influenza, injectabl e, quadrivalent, preservative free Dr. Salvador Del Rosario MD Work Phone: [facility] 02-05-2014 influenza, seasonal, injectable Agnes Del Rosario MD Work Phone: [facility] 03-04-2013 zoster vaccine, live Marcelo Del Rosario MD Work Phone: [facility] 02-09-2013 influenza virus vaccine, unspecified formulation Agnes Del Rosario MD Work Phone: [facility] 04-11-2012 influenza virus vaccine, unspecified formulation Agnes Del Rosario MD Work Phone: [facility] 03-14-2011 influenza virus vaccine, unspecified formulation Agnes Del Rosario MD Work Phone: [facility] Work Phone: 03-08-2010 influenza virus vaccine, unspecified formulation Agnes Del Rosario MD Work Phone: [facility] 03-08-2010 pneumococcal polysaccharide vaccine, 23 valent Agnes Del Rosario MD Work Phone: [facility] 04-20-2009 novel [id number], preservative-free, injectable Dr. Salvador Del Rosario MD Work Phone: [facility] 02-06-2009 influenza virus vaccine, unspecified formulation Agnes Del Rosario MD Work Phone: [facility] Work Phone: 10-04-2007 tetanus toxoid, redu sakshi diphtheria toxoid, and acellular pertussis vaccine, adsorbed Agnes Del Rosario MD Work Phone: [facility] Work Phone: 04-14-2006 influenza virus vaccine, unspecified formulation Agnes Del Rosario MD Work Phone: [facility] Work Phone: 1945 pneumococcal conjuga te vaccine, 7 valent [facility] Payers Date Payer Category Payer Self-pay [id number] 2023 Medicare supplementa l policy (as second payer) [facility] [id number] 2023 Unknown AARP AARP [id number] 2023- [address] [place] [address] [id number]. [id number] 2017 Private Health Insurance [facility] AARP SUPPLEMENT [id number] 2017-Present [phone] [address] [place] [address] Indemnity [id number] [id number] 2017 Private Health Insurance [id number]. [id number] 2017 Unknown [id number] 2014 Unknown [id number] 2009 Medicare MEDICARE MEDICAR E A AND B [id number] 2009-Present [phone] [place] [address] Medicare [id number] [id number] 2009 Medicare [id number] 1.13.159. 2.7.3.099906.315 2009 Medicare [id number] 1944 Unknown [id number] 2.16.840.1.487148.3.579. 2.356 1944 Unknown [id number] 2.16.840.1.257223.3.579. 2.356 1944 Unknown [id number] 2.16.840.1.883101.3.579. 2.1244 Unknown [id number] 2.16.840.1.446359.3.579. 2.462 Unknown [id number] 2.16.840.1.045088.3.579. 2.462 Unknown [id number] 2.16.840.1.983413.3.579. 2.462 Unknown [id number] 2.16.840.1.377512.3.579. 2.462 Unknown [id number] 2.16.840.1.600203.3.579. 2.462 Unknown [id number] 2.16.840.1.770400.3.579. 2.462 Unknown [id number] 2.16.840.1.217587.3.579. 2.462 Unknown [id number] 2.16.840.1.673060.3.579. 2.462 Unknown [id number] 2.16.840.1.227284.3.579. 2.462 Unknown [id number] 2.16.840.1.643015.3.579. 2.462 Unknown [id number] 2.16.840.1.560392.3.579. 2.462 Unknown [id number] 2.16.840.1.033884.3.579. 2.462 Unknown [id number] 2.16.840.1.150902.3.579. 2.462 Unknown [id number] 2.16.840.1.495236.3.579. 2.462 Unknown [id number] 2.16.840.1.469688.3.579. 2.462 Unknown [id number] 2.16.840.1.910582.3.579. 2.462 Unknown [id number] 2.16.840.1.459501.3.579. 2.462 Unknown [id number] 2.16.840.1.308678.3.579. 2.462 Unknown [id number] 2.16.840.1.836692.3.579. 2.462 Unknown [id number] 2.16.840.1.720457.3.579. 2.462 Unknown [id number] 2.16.840.1.521031.3.579. 2.462 Unknown [id number] 2.16.840.1.095308.3.579. 2.462 Unknown [id number] 2.16.840.1.549571.3.579. 2.462 Unknown [id number] 2.16.840.1.668787.3.579. 2.462 Unknown [id number] 2.16.840.1.685815.3.579. 2.462 Unknown [id number] 2.16.840.1.597613.3.579. 2.462 Unknown [id number] 2.16.840.1.357821.3.579. 2.462 Unknown [id number] 2.16.840.1.172689.3.579. 2.462 Unknown [id number] 2.16.840.1.387121.3.579. 2.462 Social History Date Type Detail Facility Start: 01-01-2021 [facility] Start: 1945 End: 1945 Sex Assigned At Male [facility] Start: 04-28-2011 End: 12-25-2024 Tobacco smoking status NHIS Never smoked tobacco [facility] Start: 07-12-2021 End: 10-31-2024 Alcohol intake Current non-drinker of alcohol (finding) [facility] Start: 01-13-2020 End: 10-27-2022 History SDOH Alcohol Frequency 1 [facility] Start: 01-13-2020 History SDOH Alcohol Std Drinks 98 [facility] Start: 11-18-2019 End: 10-27-2022 History SDOH Social Connections Phone 5 [facility] Start: 11-18-2019 End: 10-27-2022 History SDOH Social Connections Get Together 2 [facility] Start: 11-18-2019 End: 10-27-2022 History SDOH Social Connections Druze 3 [facility] Start: 11-18-2019 History SDOH Physical Activity DPW 6 [facility] Start: 10-08-2021 End: 01-15-2024 Exposure to SARS-CoV-2 (event) Not sure [facility] Work Phone: Start: 04-28-2011 End: 11-09-2023 Tobacco use and exposure Smokeless tobacco non-user [facility] Start: 10-27-2022 History SDOH Alcohol Std Drinks 0 [facility] Start: 10-27-2022 History SDOH Social Connections Get Together 4 [facility] Start: 10-27-2022 End: 09-25-2024 History of Social function [facility] Start: 10-27-2022 End: 09-25-2024 Social connection and isolation panel [facility] Do you belong to any clubs or organizations such as spiritism groups, unions, fraternal or athletic groups, or school groups? Yes [facility] Are you now , , , , never or living with a partner? [facility] How often to you hav e a drink containing alcohol? Never [facility] Start: 04-01-2012 End: 03-25-2022 How many standard drinks containing alcohol do you have on a typical day? Patient does not drink [facility] Do you feel stress - tense, restless, nervous, or anxious, or unable to sleep at night because your mind is troubled all the time - these days [OSQ] Not at all [facility] (I/We) worried denny er (my/our) food would run out before (I/we) got money to buy more. Never true [facility] In the past 12 month s, was there a time when you were not able to pay the mortgage or rent on time? No [facility] Start: 07-31-2018 Gender identity Identifies as male gender (finding) [facility] Start: 12-28-2020 Sexual orientation Heterosexual (finding) [facility] Start: 09-04-2016 None [facility] Start: 09-04-2016 Spouse/ Significant Other [facility] History of tobacco use Passive smoker [facility] Start: 1945 Sex assigned at Not on file [facility] Work Phone: Start: 07-04-2024 Sex Male (finding) [facility] Medical Equipment Procedure Code Equipment Code Equipment Origin al Text Equipment Identifier Dates ERCP (endoscopic retrograde cholangiopancreatog justin) ([id number]) Polymeric biliary stent, non-bioabsorbable ()[id number] [facility] Start: 03-27-2024 ERCP (endoscopic retrograde cholangiopancreatog justin) ([id number]) Polymeric biliary stent, non-bioabsorbable ()[id number] [facility] Start: 10-07-2024 Liner 36mm 0d F X3 7.9mm Acetabular Hip - [id number] Start: 06-03-2019 Trident Solidback?Acetabula r Shell 58mm F [id number] Start: 06-03-2019 Head V40 36mm 0m m Offset Taper Biolox Delta Femoral Hip - [id number] Start: 06-03-2019 Stem Accolade Ii 6 127d Femoral - [id number] Start: 06-03-2019 Goals Date Patient Goal Desired Activity /State Personal health goal Functional Status Date Assessment Result Facility 01-30-2025 Functional status [facility] 01-30-[address] [facility] Work Phone: 10-24-2024 Functional status Ambulates;Chair [facility] Work Phone: 10-24-2024 Functional status Assistive Devices None [facility] Work Phone: 10-23-2024 Functional status Tolerates Activity Fair [facility] Work Phone: 03-28-2024 Functional status Ambulates [facility] Work Phone: 10-27-2023 Are you deaf, or do you have serious difficulty hearing No 10/27/2023 4:08 PM Virgilio Ambrose, CHAD No [facility] 10-27-2023 Are you blind, or do you have serious difficulty seeing, even when wearing glasses No 10/27/2023 4:08 PM Virgilio Ambrose, CHAD No [facility] 10-27-2023 Do you have serious difficulty walking or climbing stairs No 10/27/2023 4:08 PM Virgilio Ambrose RN No [facility] 10-27-2023 Do you have difficul ty dressing or bathing No 10/27/2023 4:08 PM Virgilio Ambrose RN No [facility] 10-27-2023 Because of a physica l, mental, or emotional condition, do you have difficulty doing errands alone such as visiting a physician's office or shopping No 10/27/2023 4:08 PM Virgilio Ambrose RN No [facility] Mental Status Date Assessment Result Facility 12-26-2024 Cognitive function Voice/Name [facility] Work Phone: 10-24-2024 Cognitive function Voice/Name [facility] Work Phone: 10-21-2024 Cognitive function Level Of Cons ciousness Awake;Alert;Appropriate;Fol lows Commands [facility] Work Phone: 10-07-2024 Cognitive function Voice/Name [facility] Work Phone: 07-04-2024 Cognitive function Voice/Name [facility] Work Phone: 03-28-2024 Cognitive function Level Of Cons ciousness Awake;Alert;Appropriate;Fol lows Commands [facility] Work Phone: 03-27-2024 Cognitive function Voice/Name [facility] Work Phone: 10-27-2023 Because of a physica l, mental, or emotional condition, do you have serious difficulty concentrating, remembering, or making decisions No 10/27/2023 4:08 PM EDT Virgilio Bee RN No [facility] Clinical Notes 06-03-2019 to 01-30-2025 Bruna ChowdarySELENE-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 - 01/30/2025 10:45 AM EDT Note Date & Type Note Facility 01-30-2025 History of Present illness Narrative Images from the original note were not included. Subjective Fran Parekh is a 79 y.o. male who presents for the following: Skin Check (LV: 01/15/24: FBSE. No bleeding, changing, painful or itchy lesions today.). 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 The following portions of the chart were reviewed this encounter and updated as appropriate: Skin Cancer History Biopsy Log Book No skin cancers from Specimen Tracking. Additional History Specialty Problems None Objective Well appearing patient in no apparent distress; mood and affect are within normal limits. A focused skin examination was performed. All findings within normal limits unless otherwise noted below. Assessment/Plan Skin Exam 1. NEVUS Generalized Uniform pigmented macule(s)/papule(s) with reassuring findings on dermoscopy -Discussed nature of condition -Reassurance, benign-appearing features on examination today -Recommend continued observation 2. LENTIGO Generalized Pitt macules -Benign appearing on exam -Reassurance, recommend observation 3. SEBORRHEIC KERATOSIS Generalized Stuck on, waxy macule(s)/papule(s)/plaque(s) with comedo-like openings and milia like cysts -Discussed nature of condition -Reassurance, recommend continued observation 4. SCREENING EXAM FOR SKIN CANCER Generalized 5. XEROSIS CUTIS Generalized Fine, ashy, pale to white scale diffusely over skin. 6. HISTORY OF NONMELANOMA SKIN CANCER Generalized Personal History of Non-Melanoma Skin Cancer -Well healed scar(s) with no evidence of recurrence -Discussed the need for annual or semi-annual skin examinations and to return sooner if any new or changing lesions are noticed. Patient verbalizes understanding 7. NEOPLASM OF UNCERTAIN BEHAVIOR OF SKIN Left Breast - Lesion biopsy Type of biopsy: tangential Informed consent: discussed and consent obtained Timeout: patient name, date of , surgical site, and procedure verified Procedure prep: Patient was prepped and draped Anesthesia: the lesion was anesthetized in a standard fashion Anesthetic: 1% lidocaine w/ epinephrine 1-100,000 local infiltration Instrument used: DermaBlade Hemostasis achieved with: aluminum chloride Outcome: patient tolerated procedure well Post-procedure details: sterile dressing applied and wound care instructions given Dressing type: petrolatum and bandage Specimen 1 - Dermatopathology- DERM LAB Differential Diagnosis: verrucal keratosis vs SCC vs other Check Margins Yes/No?: Comments: Dermpath Lab: Routine Histopathology (formalin-fixed tissue) 8. VENOUS STASIS DERMATITIS, UNSPECIFIED LATERALITY Left Lower Leg - Anterior, Right Lower Leg - Anterior Erythematous plaques with pitting edema -Discussed nature of the condition -This is a chronic condition and will not resolve without diligent care to decrease swelling in the legs. If it is acceptable with patient's primary care physician, wearing compression stockings and elevating the legs above the level of the heart whenever possible is often helpful. -Topical steroids can help to reduce the inflammation in the skin caused by the swelling in the legs -Discussed with/information given to the patient on the risks, benefits and alternatives of the usage of topical corticosteroids, including but not limited to: atrophy (thinning of the skin), striae (stretch soni), telangiectasia (blood vessel growth), and dyspigmentation (discoloration of the skin). -Recommend to limit long-term use of topical corticosteroids to less than 14 days per month to reduce risk of side effects. documented in this encounter [facility] Work Phone: 12-26-2024 Consult note [facility] 12-26-2024 Consult note [facility] 12-26-2024 Consult note Note Date/Time December 26, 2024 11:21am [facility] Medical Records Department [address] [place] [address] Pre-Anesthesia Evaluation 12/26/24 1115 MR#: [id number] Acct: [id number] Name: FRAN PAREKH Rep #:[id number] : 1945 79 From: Abundio Merrill MD PCP: Dr. Salvador Del Rosario MD Status :REG SDC Y Race: C Location: [place] [id number] ASA Classification* ASA Classification ASA Classification: 3 [...] Patient and Chart Anesthesia Focused Assessment* Temperature: 98.4 F Pulse Rate: 54 Blood Pressure: 159/82 Respiratory Rate: 16 Pulse Ox: 99 Oxygen Delivery Method: Room Air Airway Assessment Mouth opens: >3 cm Mallampati Score: III Teeth Condition: Caps/Crowns (Couple caps. They are tight.) Neck Range of motion (ROM): Limited ROM (Severe Restriction) Labs Anesthesia Preop lab: CBC WBC 9.9 K/mm3 (4.4-11.0) 10/23/24 05:10/23/24 RBC 4.26 M/mm3 (4.6-6.2) L 10/23/24 05:10/23/24 Hgb 13.6 g/dL (13.0-16.5) 10/23/24 05:10/23/24 Hct 40.8 % (40-54) 10/23/24 05:33 10/23/24 Plt Count 178 K/mm3 (150-450) 10/23/24 05:10/23/24 CHEMISTRY Potassium 4.2 mmol/L (3.3-5.1) 10/23/24 05:10/23/24 Sodium 140 mmol/L (133-145) 10/23/24 05:10/23/24 Magnesium 1.5 mg/dL (1.5-2.2) 10/22/24 00:35 10/22/24 BUN 21 mg/dL (4-19) H 10/23/24 05:33 10/23/24 Creatinine 1.78 mg/dL (0.70-1.20) H 10/23/24 05: Glucose 125 mg/dL (70-99) H 10/23/24 05:33 10/23/24 TSH 1.840 uIU/mL (0.300-4.200) 10/22/24 00:35 09/30 08/23 COAG PT 15.3 SECONDS (11.7-14.9) H 10/22/24 00:35 09/30 08/23 Pre-Assessment Diagnosis/Proposed Procedure Planned Operative Procedure(s): ERCP WITH STENT REMOVAL Anesthesia History Anesthesia History - edge plugger: Anesthesia History - edge plugger Hx Hospitalization Yes: [facility]- ERCP 03/24. 12/25/24 10:12 Any Problems With Anesthesia No: SLIGHT NAUSEA 10/07/24 12/25/24 10:12 Cholinesterase deficiency No 12/25/24 10:12 You/Your Family Experience No 12/25/24 10:12 fever (hyperthermia) with Relationship Recent Exposure to Contagious No 12/26/24 10:28 Disease Does patient have nerve No 12/25/24 10:12 stimulator Patient instructed to have device shut off --Does patient have Pacemaker No 12/26/24 10:28 or ICD? When Was Last Pacemaker Check QUESTION #4 FULL TEXT: You/Your Family Experience fever (hyperthermia) with Anesthesia Last Oral Intake Last Oral intake: Last Oral Intake NPO since 18:00 12/26/24 10:28 Meds taken in AM with sips of No 12/26/24 10:28 water? 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 - edge plugger: PONV - edge plugger Female No 12/25/24 10:12 HX of Motion Sickness No 12/25/24 10:12 HX of N/V After Surgery Yes 12/25/24 10:12 Non-Smoker Yes 12/25/24 10:12 Duration of Surgery greater Yes 12/25/24 10:12 than 60 minutes Number of Risk Factors 3 12/25/24 10:12 PONV Score Moderate Risk 12/25/24 10:12 Height & Weight Height & Weight: Anesthesia: Height & Weight Height 5 ft 11 in 12/26/24 10:28 Weight: 130.5 kg 12/26/24 10:28 Body Mass Index (BMI) 40.1 12/26/24 10:28 Respiratory Assessment Respiratory Assessment - edge plugger: Respiratory Tract Infection Hx - edge plugger Hx Respiratory Tract Infection No 12/25/24 10:12 STOP Sleep Apnea STOP Sleep Apnea - edge plugger: STOP Sleep Apnea - edge plugger Hx Hypertension Yes: CONTROLLED WITH MED 12/25/24 10:12 Hx Sleep Apnea Yes 12/25/24 10:12 CPAP Yes 12/25/24 10:12 BIPAP No 12/25/24 10:12 Do you snore loudly (louder than talking or can be heard Do you often feel tired/ fatigued/ sleepy during daytime? Has anyone observed you stop breathing during sleep? STOP Results Positive 12/25/24 10:12 QUESTION #5 FULL TEXT : Do you snore loudly (louder than talking or can be heard through closed doors)? 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 Specify any problems Hx of Preganancy in last 3 N/A 12/25/24 10:12 Months Nurse Filling Out Transfusion DSCHRIBER 12/25/24 10:12 & Questions: Date: 12/25/24 12/25/24 10:12 Time: 10:13 12/25/24 10:12 Patient unable to answer at this time (ie. confused, unrespo /Reproduction History /Reproductive History - edge plugger: /Reproductive Hx- edge plugger Hx Now No 12/25/24 10:12 Gestational Age (in weeks): EDC: Hx Hx Para Hx Section SAB No 12/25/24 10:12 Active Medications Active Medications: Current Medications Generic Name Dose Route Start Last Admin Trade Name Aliya PRN Reason Stop Dose Admin Lactated Ringer's 1,000 mls @ 15 mls/hr 12/26/24 10:15 12/26/24 10:41 IV 15 mls/hr .Q48H PRABHA Administration PFSH Medical History Ambulates with cane Arthritis Injury of back Back pain Migraine headache Injury of head and neck Non-smoker CPAP (continuous positive airway pressure) dependence Shortness of breath on exertion History of pain when walking History of edema Pulmonary embolism Pain Morbid obesity with BMI of 40.0-44.9, adult ROSSANA (acute kidney injury) Fever Lactic acidosis Cholangitis History of biliary stent insertion Biliary stricture Cancer Wears glasses Thyroid disease Shingles Inguinal hernia Cardiology follow-up encounter History of stress test Pancreatic cyst Choledocholithiasis Current use of piece marker small arms 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 Elevated liver enzymes Pancreatic mass High cholesterol Hx of gastroesophageal reflux (GERD) Hypertension Home Medications ?Medication ?Instructions ?Recorded ?Last Taken ?Type lisinopril 40 mg tablet 40 mg PO DAILY blood pressur e 01/31/13 12/25/24 History atorvastatin 40 mg tablet 40 mg PO QHS cholesterol #90 09/05/16 12/25/24 Rx TABLETS gabapentin 300 mg capsule 300 mg PO QHS nerve pain 12/25/24 History metoprolol succinate 50 mg 50 mg PO DAILY blood pressu re 10/22/23 12/25/24 History tablet,extended release 24 hr apixaban 5 mg tablet (Eliquis) 5 mg PO BID blood thinn er 03/26/24 12/23/24 History hydrochlorothiazide 25 mg tablet 25 mg PO DAILY reduce fluid 03/26/24 12/25/24 History levothyroxine 125 mcg tablet 125 mcg PO DAILY disorder of 03/26/24 12/25/24 History thyroid gland aspirin 81 mg tablet,delayed 81 mg PO DAILY 08/31/24 0 12/25/24 History release (Adult Aspirin Regimen) multivitamin (Daily Multi-Vitamin 1 tab PO DAILY 08/3112/25/24 History tablet) acetaminophen 500 mg tablet 1,000 mg PO DAILY 12/25/24 12/25/24 History (Acetaminophen Extra Strength) Allergy/AdvReac Type Severity Reaction Status Date / Time azithromycin (From Zithromax) Allergy Itching Verified 12/25/24 10:07 bee venom protein (honey bee) AdvReac Swelling Verified 12/25/24 10:07 venom-wasp (wasps) AdvReac Swelling Verified 12/25/24 10:07 Surgical History History of total right hip arthroplasty S/P carpal tunnel release History of tonsillectomy History of ERCP Social History Smoking Status: Never smoker Review of Systems (Anesthesia) ROS Narrative System reviewed and no additional complaints, except as documented. 12/26/24 1121 <Electronically signed by Abundio chase MD> Date _ Abundio Merrill MD Cosigner Signature: Date CC: ~ Signed [facility] Work Phone: 1(799) 394-573608-28-2025 History and physical note Author Alex Friend [facility] Note Date/Time December 26, 2024 10 :36am [facility] Medical Records Department [address] [place] [address] History & Physical Exam 12/26/24 1035 MR#: [id number] Acct: [id number] Name: FRAN PAREKH Rep #:[id number] : 1945 79 From: Alex Sher PCP: Dr. Salvador Del Rosario MD Status :[facility] Location: [place] [address] HPI - General General Date of Admission: 12/26/24 Date of Service: 12/26/24 Chief Complaint: stent removal HPI Narrative [facility] hospitalization 03.26.24 - 03.28.24 dizziness - consulted for pancreatitis abd/pelvis CT 03.26.24 Lobulated 6 cm pancreatic tail hypoattenuating, cystic appearing lesion previously measuring only up to 3 cm. Cystic neoplastic processis not excluded. Severe distal colonic diverticulosis without [...] is having ablation done with Dr Cabezas. ERCP .25;Mucosal changes in the duodenum.Destruction of remaining portion of lesion in the ampulla with hot biopsy forceps was performed. Polypectomy was performed. Duodenal diverticulum. A single localized biliary stricture was found in the lower third of the main bile duct. The stricture was benign appearing. The entire main bile duct was moderately dilated, acquired. The patient has had a cholecystectomy.Choledocholithiasis was found. Complete removal was accomplished by sweeping.- A pancreatic sphincterotomy was performed.The biliary tree was swept and sludge was found One temporary stent was placed into the common bile duct. [facility] 6..25-6..25 with fever of unknown origin possible cholangitis. Discharged with antibiotics OV 7.9.25 Pt here today for f/u after [facility] admission for fever. Pt has been doingwell since discharge with no GI complaints. [facility] Medical History Ambulates with cane Arthritis Injury of back Back pain Migraine headache Injury of head and neck Non-smoker CPAP (continuous positive airway pressure) dependence Shortness of breath on exertion History of pain when walking History of edema Pulmonary embolism Pain Morbid obesity with BMI of 40.0-44.9, adult ROSSANA (acute kidney injury) Fever Lactic acidosis Cholangitis History of biliary stent insertion Biliary stricture Cancer Wears glasses Thyroid disease Shingles Inguinal hernia Cardiology follow-up encounter History of stress test Pancreatic cyst Choledocholithiasis Current use of snf 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 Elevated liver enzymes Pancreatic mass High cholesterol Hx of gastroesophageal reflux (GERD) Hypertension Home Medications ?Medication ?Instructions ?Recorded ?Last Taken ?Type lisinopril 40 mg tablet 40 mg PO DAILY blood pressur e 01/31/13 12/25/24 History atorvastatin 40 mg tablet 40 mg PO QHS cholesterol #90 09/05/16 12/25/24 Rx TABLETS gabapentin 300 mg capsule 300 mg PO QHS nerve pain 12/25/24 History metoprolol succinate 50 mg 50 mg PO DAILY blood pressu re 10/22/23 12/25/24 History tablet,extended release 24 hr apixaban 5 mg tablet (Eliquis) 5 mg PO BID blood thinn er 03/26/24 12/23/24 History hydrochlorothiazide 25 mg tablet 25 mg PO DAILY reduce fluid 03/26/24 12/25/24 History levothyroxine 125 mcg tablet 125 mcg PO DAILY disorder of 03/26/24 12/25/24 History thyroid gland aspirin 81 mg tablet,delayed 81 mg PO DAILY 08/31/24 0 12/25/24 History release (Adult Aspirin Regimen) multivitamin (Daily Multi-Vitamin 1 tab PO DAILY 08/3112/25/24 History tablet) acetaminophen 500 mg tablet 1,000 mg PO DAILY 12/25/24 12/25/24 History (Acetaminophen Extra Strength) Allergy/AdvReac Type Severity Reaction Status Date / Time azithromycin (From Zithromax) Allergy Itching Verified 12/25/24 10:07 bee venom protein (honey bee) AdvReac Swelling Verified 12/25/24 10:07 venom-wasp (wasps) AdvReac Swelling Verified 12/25/24 10:07 Surgical History History of total right hip [...] rectal bleeding, tenesmus, vomiting or weight changes Physical Exam Const alert, oriented x3, no apparent distress and healthy appearing General Appearance: cooperative GI normal to inspection, nondistended, normoactive bowel sounds, soft to palpation,non-tender and non-distended Percussion: normal to percussion Rectal Exam: deferred Assessment & Plan Assessment/Plan (1) Choledocholithiasis: PLAN: Assessment and Plan Assessment and Plan (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 Pt established with [facility] in March 2024 during admission for pancreatitis. He underwent ERCP which showed dilated hepatic duct and CBD with a stone. Stent was placed. MRCP showing multiple pancreatic cysts. Repeat ERCP in Mar 2024 for biopsy of the ampulla which showed low grade focal dysplasia. He underwent another ERCP for ampullectomy. Two weeks following his last ERCP he developed a fever and presented to the ED. Concern for cholangitis however this was ruled out. Discharged with antibiotics. He is doing well today with no GI complaints. He will be scheduled for repeat ERCP for removal of CBD stent. Will consider referral to gen surgery for discission of cholecystectomy. Pt does not wish to see surgery at this time. -Repeat ERCP for stent removal -f/u after procedure (2) Choledocholithiasis: Status: Acute (3) Fever: Status: Acute 12/26/24 1036 <Electronically signed by Alex Sher DO> Cosigner Signature (if applicable): CC: Dr. Salvador Del Rosario MD; Alex Sher DO~ Signed [facility] Work Phone: 1(580) 343-750508-28-2025 Procedure note [facility] Medical Records Department [address] [place] [address] ERCP Report MR#: [id number] Acct: [id number] Name: FRAN PAREKH Rep #:[id number] : 1945 79 From: Alex Sher DO PCP: Dr. Salvador Del Rosario MD Status :[facility] Patient Name: Fran Parekh Procedure Date: 12/26/2024 11:16 AM Date of : 1945 Age: 79 Procedure: ERCP Indications: Bile duct stone(s), Biliary stent removal Providers: Alex Sher DO Medicines: Monitored Anesthesia Care Patient Profile: This is an 79 year old male. Refer to note in patient chart for documentation of history and physical. Patient has symptoms of acute right upper quadrant abdominal pain. His most recent ERCP for stent and ERCP for stone removal was within the past three months. Complications: No immediate complications. Procedure: Pre-Anesthesia Assessment: [...] patient has taken no anticoagulant or antiplatelet agents. ASA Grade Assessment: III - A patient with severe systemic disease. After reviewing the risks and [...] patient tolerated the procedure well. Scope In: 11:52:51 AM Scope Out: 12:19:32 PM Total Procedure Duration Time 0 hours 26 minutes 41 seconds Findings: The french lecturer film was normal. The scope was advanced to a normal major papilla in the descending duodenum. Examination of the pharynx, larynx and associated structures, and upper GI tract was normal. The minor papilla was not found. The scope was passed through the upper GI tract without discovering UGI findings. A small frondlike/villous mass measuring five mm in diameter was found at the major papilla. The major papilla was edematous. The polyp was removed with a hot snare. The polypectomy was performed through the esophagogastroduodenoscope. Resection and retrieval were complete. A long 0.025 inch Jagwire was passed into the biliary tree. The short-nosed traction sphincterotome was passed over the guidewire and the bile duct was then deeply cannulated. Contrast was injected. I personally interpreted the bile duct images. There was brisk flow of contrast through the ducts. Image quality was adequate. Contrast extended to the entire biliary tree. Opacification of the entire opacified area, main bile duct, common bile duct, cystic duct, gallbladder, common hepatic duct, hepatic duct bifurcation and entire biliary tree was successful. The maximum diameter of the ducts was 10 mm. The lower third of the main bile duct, common bile duct and common hepatic duct contained two stones, the largest of which was 5 mm in diameter. The main bile duct was mildly dilated, with a stone causing an obstruction. The largest diameter was 10 mm. A 5 mm biliary sphincterotomy was made with a traction (standard) sphincterotome using ERBE electrocautery. There was no post-sphincterotomy bleeding. The biliary tree was swept with a 12 mm balloon starting at the upper third of the main bile duct, middle third of the main bile duct, lower third of the main duct, bifurcation, left intrahepatic duct(s) and left main hepatic duct. Sludge was swept from the duct. All stones were removed. One stent was removed from the biliary tree using a snare and sent for cytology. Impression: - The major papilla appeared to have a mass. - The major papilla appeared edematous. - Polypectomy was performed. - The entire main bile duct was mildly dilated, with a stone causing an obstruction. - Choledocholithiasis was found. Complete removal was accomplished by biliary sphincterotomy and balloon extraction. - A biliary sphincterotomy was performed. - The biliary tree was swept. - One stent was removed from the biliary tree. Procedure Code(s): --- Professional --- 44088, Endoscopic retrograde cholangiopancreatography (ERCP); with removal of foreign body(s) or stent(s) from biliary/pancreatic duct(s) 95357, Endoscopic retrograde cholangiopancreatography (ERCP); with removal of calculi/debris from biliary/pancreatic duct(s) 61684, Endoscopic retrograde cholangiopancreatography (ERCP); with sphincterotomy/papillotomy 88017, Esophagogastroduodenoscopy, flexible, transoral; with removal of tumor(s), polyp(s), or other lesion(s) by snare technique 40330, 26, Endoscopic catheterization of the biliary ductal system, radiological supervision and interpretation CPT copyright 2021 [employer]. All rights reserved. The codes documented in this report are preliminary and upon stock lifter review may be revised to meet current compliance requirements. Alex Sher DO 12/26/2024 12:29:22 PM This report has been signed electronically. Number of Addenda: 0 Note Initiated On: 12/26/2024 11:16 AM 12/26/24 1229 Date _ Alex Sher DO Cosigner Signature: Date (if indicated) CC: Dr. Salvador Del Rosario MD; Alex Sher DO ~ Date Dictated: 12/26/24 1116 Date Transcribed: Software Packager: RF Signed [facility]08-28-2025 Procedure note [facility] Medical Records Department [address] [place] [address] Provation Physician Letter MR#: [id number] Acct: [id number] Name: FRAN PAREKH Rep #:[id number] : 1945 79 From: Alex Sher DO PCP: Dr. Salvador Del Rosario MD Status :[facility] 12/26/2024 Salvador Del Rosario Re : ERCP procedure for Fran Parekh Dear Carin This procedure was performed on November. My impressions and recommendations are as follows: Impressions : - The major papilla appeared to have a mass. - The major papilla appeared edematous. - Polypectomy was performed. - The entire main bile duct was mildly dilated, with a stone causing an obstruction. - Choledocholithiasis was found. Complete removal was [...] me at . Sincerely, Alex Sher DO 12/26/2024 12:29:22 PM This report has been signed electronically. 12/26/24 1229 Date _ Alex Kang Signature: Date (if indicated) CC: Dr. Salvador Del Rosario MD; Alex Sher, DO ~ Date Dictated: 12/26/241115 Date Transcribed: Software Packager: LUIS Signed [facility]08-28-2025 Consult note [facility] Medical Records Department [address] [place] [address] Pre-Anesthesia Evaluation 12/26/241114 MR#: [id number] Acct: [id number] Name: FRAN PAREKH Rep #:[id number] : 1945 79 From: Abundio Merrill MD PCP: Dr. Salvador Del Rosario MD Status :REG SDC Y Race: C Location: [place] [address] ASA Classification* ASA Classification ASA Classification: 3 [...] Patient and Chart Anesthesia Focused Assessment* Temperature: 98.4 F Pulse Rate: 54 Blood Pressure: 159/82 Respiratory Rate: 16 Pulse Ox: 99 Oxygen Delivery Method: Room Air Airway Assessment Mouth opens: >3 cm Mallampati Score: III Teeth Condition: Caps/Crowns (Couple caps. They are tight.) Neck Range of motion (ROM): Limited ROM (Severe Restriction) Labs Anesthesia Preop lab: CBC WBC 9.9 K/mm3 (4.4-11.0) 10/23/24 05:10/23/24 RBC 4.26 M/mm3 (4.6-6.2) L 10/23/24 05:10/23/24 Hgb 13.6 g/dL (13.0-16.5) 10/23/24 05:10/23/24 Hct 40.8 % (40-54) 10/23/24 05:10/23/24 Plt Count 178 K/mm3 (150-450) 10/23/24 05:33 10/23/24 CHEMISTRY Potassium 4.2 mmol/L (3.3-5.1) 10/23/24 05:33 10/23/24 Sodium 140 mmol/L (133-145) 10/23/24 05:33 10/23/24 Magnesium 1.5 mg/dL (1.5-2.2) 10/22/24 00:35 10/22/24 BUN 21 mg/dL (4-19) H 10/23/24 05:10/23/24 Creatinine 1.78 mg/dL (0.70-1.20) H 10/23/24 05: Glucose 125 mg/dL (70-99) H 10/23/24 05:10/23/24 TSH 1.840 uIU/mL (0.300-4.200) 10/22/24 00:35 09/30 08/23 COAG PT 15.3 SECONDS (11.7-14.9) H 10/22/24 00:35 09/30 08/23 Pre-Assessment Diagnosis/Proposed Procedure Planned Operative Procedure(s): ERCP WITH STENT REMOVAL Anesthesia History Anesthesia History - edge plugger: Anesthesia History - edge plugger Hx Hospitalization Yes: [facility]- ERCP 03/24. 12/25/24 10:12 Any Problems With Anesthesia No: SLIGHT NAUSEA 10/07/24 12/25/24 10:12 Cholinesterase deficiency No 12/25/24 10:12 You/Your Family Experience No 12/25/24 10:12 fever (hyperthermia) with Relationship Recent Exposure to Contagious No 12/26/24 10:28 Disease Does patient have nerve No 12/25/24 10:12 stimulator Patient instructed to have device shut off --Does patient have Pacemaker No 12/26/24 10:28 or ICD? When Was Last Pacemaker Check QUESTION #4 FULL TEXT: You/Your Family Experience fever (hyperthermia) with Anesthesia Last Oral Intake Last Oral intake: Last Oral Intake NPO since 18:00 12/26/24 10:28 Meds taken in AM with sips of No 12/26/24 10:28 water? 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 - edge plugger: PONV - edge plugger Female No 12/25/24 10:12 HX of Motion Sickness No 12/25/24 10:12 HX of N/V After Surgery Yes 12/25/24 10:12 Non-Smoker Yes 12/25/24 10:12 Duration of Surgery greater Yes 12/25/24 10:12 than 60 minutes Number of Risk Factors 3 12/25/24 10:12 PONV Score Moderate Risk 12/25/24 10:12 Height & Weight Height & Weight: Anesthesia: Height & Weight Height 5 ft 11 in 12/26/24 10:28 Weight: 130.5 kg 12/26/24 10:28 Body Mass Index (BMI) 40.1 12/26/24 10:28 Respiratory Assessment Respiratory Assessment - edge plugger: Respiratory Tract Infection Hx - edge plugger Hx Respiratory Tract Infection No 12/25/24 10:12 STOP Sleep Apnea STOP Sleep Apnea - edge plugger: STOP Sleep Apnea - edge plugger Hx Hypertension Yes: CONTROLLED WITH MED 12/25/24 10:12 Hx Sleep Apnea Yes 12/25/24 10:12 CPAP Yes 12/25/24 10:12 BIPAP No 12/25/24 10:12 Do you snore loudly (louder than talking or can be heard Do you often feel tired/ fatigued/ sleepy during daytime? Has anyone observed you stop breathing during sleep? STOP Results Positive 12/25/24 10:12 QUESTION #5 FULL TEXT : Do you snore loudly (louder than talking or can be heard through closeddoors)? 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 Specify any problems Hx of Preganancy in last 3 N/A 12/25/24 10:12 Months Nurse Filling Out Transfusion DSCHRIBER 12/25/24 10:12 & Questions: Date: 12/25/24 12/25/24 10:12 Time: 10:13 12/25/24 10:12 Patient unable to answer at this time (ie. confused, unrespo /Reproduction History /Reproductive History - edge plugger: /Reproductive Hx- edge plugger Hx Now No 12/25/24 10:12 Gestational Age (in weeks): EDC: Hx Hx Para Hx Section SAB No 12/25/24 10:12 Active Medications Active Medications: Current Medications Generic Name Dose Route Start Last Admin Trade Name Freq PRN Reason Stop Dose Admin Lactated Ringer's 1,000 mls @ 15 mls/hr 12/26/24 10:15 12/26/24 10:41 IV 15 mls/hr .Q48H PRABHA Administration PFSH Medical History Ambulates with cane Arthritis Injury of back Back pain Migraine headache Injury of head and neck Non-smoker CPAP (continuous positive airway pressure) dependence Shortness of breath on exertion History of pain when walking History of edema Pulmonary embolism Pain Morbid obesity with BMI of 40.0-44.9, adult ROSSANA (acute kidney injury) Fever Lactic acidosis Cholangitis History of biliary stent insertion Biliary stricture Cancer Wears glasses Thyroid disease Shingles Inguinal hernia Cardiology follow-up encounter History of stress test Pancreatic cyst Choledocholithiasis Current use of snf 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 Elevated liver enzymes Pancreatic mass High cholesterol Hx of gastroesophageal reflux (GERD) Hypertension Home Medications ?Medication ?Instructions ?Recorded ?Last Taken ?Type lisinopril 40 mg tablet 40 mg PO DAILY blood pressur e 01/31/13 12/25/24 History atorvastatin 40 mg tablet 40 mg PO QHS cholesterol #90 09/05/16 12/25/24 Rx TABLETS gabapentin 300 mg capsule 300 mg PO QHS nerve pain 12/25/24 History metoprolol succinate 50 mg 50 mg PO DAILY blood pressu re 10/22/23 12/25/24 History tablet,extended release 24 hr apixaban 5 mg tablet (Eliquis) 5 mg PO BID blood thinn er 03/26/24 12/23/24 History hydrochlorothiazide 25 mg tablet 25 mg PO DAILY reduce fluid 03/26/24 12/25/24 History levothyroxine 125 mcg tablet 125 mcg PO DAILY disorder of 03/26/24 12/25/24 History thyroid gland aspirin 81 mg tablet,delayed 81 mg PO DAILY 08/31/24 0 12/25/24 History release (Adult Aspirin Regimen) multivitamin (Daily Multi-Vitamin 1 tab PO DAILY 08/3112/25/24 History tablet) acetaminophen 500 mg tablet 1,000 mg PO DAILY 12/25/24 12/25/24 History (Acetaminophen Extra Strength) Allergy/AdvReac Type Severity Reaction Status Date / Time azithromycin (From Zithromax) Allergy Itching Verified 12/25/24 10:07 bee venom protein (honey bee) AdvReac Swelling Verified 12/25/24 10:07 venom-wasp (wasps) AdvReac Swelling Verified 12/25/24 10:07 Surgical History History of total right hip arthroplasty S/P carpal tunnel release History of tonsillectomy History of ERCP Social History Smoking Status: Never smoker Review of Systems (Anesthesia) ROS Narrative System reviewed and no additional complaints, except as documented. 12/26/24 1121 salvatore FORD> Date _ Abundio Merrill MD Cosigner Signature: Date CC: ~ Signed [facility]08-28-2025 History and physical note [facility] Medical Records Department [address] [place] [address] History & Physical Exam 12/26/24 1035 MR#: [id number] Acct: [id number] Name: FRAN PAREKH Rep #:[id number] : 1945 79 From: lAex Friend DO PCP: Dr. Salvador Del Rosario MD Status :[facility] Location: [place] [address]-1 HPI - General General Date of Admission: 12/26/24 Date of Service: 12/26/24 Chief Complaint: stent removal HPI Narrative [facility] hospitalization 03.26.24 - 03.28.24 dizziness - consulted for pancreatitis abd/pelvis CT 03.26.24 Lobulated 6 cm pancreatic tail hypoattenuating, cystic appearing lesion previously measuring only up to 3 cm. Cystic neoplastic processis not excluded. Severe distal colonic diverticulosis without [...] was removed from the biliary tree. OV ..25 pt reports that he is feeling well overall and denies GI symptoms of concern at this time. Reports continued sciatica pain and reports that in 2 weeks he is having ablation done with Dr Cabezas. ERCP 6.25;Mucosal changes in the duodenum.Destruction of remaining portion of lesion in the ampulla with hot biopsy forceps was performed. Polypectomy was performed. Duodenal diverticulum. A singlelocalized biliary stricture was found in the lower third of the main bile duct. The stricture was benign appearing. The entire main bile duct was moderately dilated, acquired. The patient has had a cholecystectomy.Choledocholithiasis was found. Complete removal was accomplished by sweeping.- A pancreatic sphincterotomy was performed.The biliary tree was swept and sludge was found One temporary stent was placed into the common bile duct. [facility] 6..-6. with fever of unknown origin possible cholangitis. Discharged with antibiotics OV 7.9.25 Pt here today for f/u after [facility] admission for fever. Pt has been doingwell since discharge with no GI complaints. [facility] Medical History Ambulates with cane Arthritis Injury of back Back pain Migraine headache Injury of head and neck Non-smoker CPAP (continuous positive airway pressure) dependence Shortness of breath on exertion History of pain when walking History of edema Pulmonary embolism Pain Morbid obesity with BMI of 40.0-44.9, adult ROSSANA (acute kidney injury) Fever Lactic acidosis Cholangitis History of biliary stent insertion Biliary stricture Cancer Wears glasses Thyroid disease Shingles Inguinal hernia Cardiology follow-up encounter History of stress test Pancreatic cyst Choledocholithiasis Current use of piece marker small arms 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 Elevated liver enzymes Pancreatic mass High cholesterol Hx of gastroesophageal reflux (GERD) Hypertension Home Medications ?Medication ?Instructions ?Recorded ?Last Taken ?Type lisinopril 40 mg tablet 40 mg PO DAILY blood pressur e 01/31/13 12/25/24 History atorvastatin 40 mg tablet 40 mg PO QHS cholesterol #90 09/05/16 12/25/24 Rx TABLETS gabapentin 300 mg capsule 300 mg PO QHS nerve pain 12/25/24 History metoprolol succinate 50 mg 50 mg PO DAILY blood pressu re 10/22/23 12/25/24 History tablet,extended release 24 hr apixaban 5 mg tablet (Eliquis) 5 mg PO BID blood thinn er 03/26/24 12/23/24 History hydrochlorothiazide 25 mg tablet 25 mg PO DAILY reduce fluid 03/26/24 12/25/24 History levothyroxine 125 mcg tablet 125 mcg PO DAILY disorder of 03/26/24 12/25/24 History thyroid gland aspirin 81 mg tablet,delayed 81 mg PO DAILY 08/31/24 0 12/25/24 History release (Adult Aspirin Regimen) multivitamin (Daily Multi-Vitamin 1 tab PO DAILY 08/3112/25/24 History tablet) acetaminophen 500 mg tablet 1,000 mg PO DAILY 12/25/24 12/25/24 History (Acetaminophen Extra Strength) Allergy/AdvReac Type Severity Reaction Status Date / Time azithromycin (From Zithromax) Allergy Itching Verified 12/25/24 10:07 bee venom protein (honey bee) AdvReac Swelling Verified 12/25/24 10:07 venom-wasp (wasps) AdvReac Swelling Verified 12/25/24 10:07 Surgical History History of total right hip [...] rectal bleeding, tenesmus, vomiting or weight changes Physical Exam Const alert, oriented x3, no apparent distress and healthy appearing General Appearance: cooperative GI normal to inspection, nondistended, normoactive bowel sounds, soft to palpation,non-tender and non-distended Percussion: normal to percussion Rectal Exam: deferred Assessment & Plan Assessment/Plan (1) Choledocholithiasis: PLAN: Assessment and Plan Assessment and Plan (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 Pt established with [facility] in March 2024 during admission for pancreatitis. He underwent ERCP which showed dilated hepatic duct and CBD with a stone. Stent was placed. MRCP showing multiple pancreatic cysts. Repeat ERCP in Mar 2024 for biopsy of the ampulla which showed low grade focal dysplasia. He underwent another ERCP for ampullectomy. Two weeks following his last ERCP he developed a fever and presented to the ED. Concern for cholangitis however this was ruled out. Discharged with antibiotics. He is doing well today with no GI complaints. He will be scheduled for repeat ERCP for removal of CBD stent. Will consider referral to gen surgery for discission of cholecystectomy. Pt does not wish to see surgery at this time. -Repeat ERCP for stent removal -f/u after procedure (2) Choledocholithiasis: Status: Acute (3) Fever: Status: Acute 12/26/24 1036 Cosigner Signature (if applicable): CC: Dr. Salvador Del Rosario MD; Alex Sher, ~ Signed [facility]08-28-2025 [facility]08-25-2025 Telephone encounter Note* Telephone Encounter - Agustín Monroy RN - 12/23/2024 8:43 AM EDT Patient calls to request x-ray results of left hand/wrist from 10/08/2024 be faxed to pain management (Dr. Cabezas). Faxed to [phone] per request. Agustín Monroy RN [facility]08-25-2025 Miscellaneous Notes* Telephone Encounter - Agustín Monroy RN - 12/23/2024 8:43 AM EDT Patient calls to request x-ray results of left hand/wrist from 10/08/2024 be faxed to pain management (Dr. Cabezas). Faxed to [phone] per request. Agustín Monroy RN [facility] Telephone encounter Note * Telephone Encounter - Alethea Lino MA - 11/19/2024 12:10 PM EDT Faxed to # on form Alethea Lino MA [facility]07-22-2025 Miscellaneous Notes* Telephone Encounter - Alethea Lino MA - 11/19/2024 12:10 PM EDT Faxed to # on form Alethea Lino MA * Telephone Encounter - Agnes Del Rosario MD - 11/19/2024 7:40 AM EDT Forms completed. * Telephone Encounter - Pallavi Katz LPN - 11/15/2024 2:31 PM EDT Patient has been identified by name and date of : Type of form: Eliquis Form received via: Fax When form is completed, fax form to fax number provided. Form has been forwarded to: Provider's desk. Provider name: Dr. Carin Katz LPN [facility] Telephone encounter Note * Telephone Encounter - Agnes Del Rosario MD - 11/19/2024 7:40 AM EDT Forms completed. [facility]07-18-2025 Telephone encounter Note* Telephone Encounter - Pallavi Katz LPN - 11/15/2024 2:31 PM EDT Patient has been identified by name and date of : Type of form: Eliquis Form received via: Fax When form is completed, fax form to fax number provided. Form has been forwarded to: Provider's desk. Provider name: Dr. Carin Katz LPN [facility]07-18-2025 Telephone encounter Note* Telephone Encounter - Jennifer Lee - 11/15/2024 10:51 AM EDT Patient returned missed call stating that [facility] at[facility]atin [facility] of hydrochlorothiazide. He did not follow up with [facility] yet. PSS notified patient that receipt of confirmation from pharmacy was received for the refill on 11/05/24. Patient states he will go back to pharmacy to see if they have the refill on file. [facility]07-18-2025 Miscellaneous Notes* Telephone Encounter - Jennifer Lee - 11/15/2024 10:51 AM EDT Patient returned missed call stating that [facility] atorvastatin [facility] of hydrochlorothiazide. He did not follow [facility] with [facility] yet. PSS notified patient that receipt of confirmation from pharmacy was received for the refill on 11/05/24. Patient states he will go back to pharmacy to see if they have the refill on file. * Telephone Encounter - Amara Owen MA - 11/15/2024 9:54 AM EDT HCTZ was refilled 11/05/24 #90 with [facility] refills to [facility] Message left for pt to call back. Amara Owen MA * Telephone Encounter - Alondra Azar - 11/13/2024 2:12 PM EDT Prescription Refill Information The patient has been identified by name and date of : Yes Caregiver verified no other encounters exist for this prescription request: Yes Caregiver confirmed with patient/requestor that no other refills are due, in the near future, with this provider at this time: Yes The last office visit in the department: 10-28-24 Does the patient have a future office visit with this provider/department: Yes Requested Prescriptions Pending Prescriptions Disp Refills hydroCHLOROthiazide 25 mg tablet 90 tablet 1 Sig: Take 1 tablet by mouth once daily. Alondra Azar November 13, 2024 2:12 PM documented in this encounterUpper [facility]07-[facility]-2025 NoteHNO ID: [id number] Author: JOHN DUNLAP RN Service: ? Author Type: Registered Nurse Type: Progress Notes Filed: 11/15/2024 10:47 Note Text: Transitional Care Management (TCM) Follow-Up Note PCP Update / Actionable Items N/A N/A - No specialty updates needed Patient Source: [employer] ([facility]) Discharge Outreach Summary: Outreach Summary: Feeling better. Denies any new or worsening symptoms. No questions or concerns at this time. Not wearing compression socks-not helping. Taking medications as prescribed. Monitoring diet/salt intake. Decreased intake pretzels/chips/pop/chocolate Pain management-steroid injections. Surgery- at end of month plan stent removal for pancrease and gallbladder surgery. Falls and safety precautions in place. Some financial burdens-dental and car. Healthy at Home number given to patient. Advised to call if any questions or concerns. Thanks [facility] for the call. Contact: Contact made with patient: Yes Spoke [...] since leaving the hospital? Better Weekly Outreach: 2nd Outreach Medications: Do you have any questions about taking your medications, including which medications you should be on, or do you need refills on your medications? No Patient Questions / Concerns: Do you have any questions related to your discharge? No Appointment / TCM Follow-Up: Have you had a follow-up visit with your Primary Care Provider or Specialist since you were discharged? Yes Do you need any assistance with scheduling or changing your follow-up appointments? Patient already has an appointment scheduled SDOH: Has Food and Housing been addressed in [employer] in the past 3 months? Yes EDUCATION--: Patient and family educated on issues/questions related to reason for admission, transition of care topics, and follow-up needed upon discharge. John Dunlap RN November 15, 2024 10:28 [facility]07-18-2025 History of Present illness Narrative* John Dunlap RN - 11/15/2024 10:28 AM EDT Transitional Care Management (TCM) Follow-Up Note PCP Update / Actionable Items N/A N/A - No specialty updates needed Patient Source: [facility] ([facility]) Discharge Outreach Summary: Outreach Summary: Feeling better. Denies any new or worsening symptoms. No questions or concerns at this time. Not wearing compression socks-not helping. Taking medications as prescribed. Monitoring diet/salt intake. Decreased intake pretzels/chips/pop/chocolate Pain management-steroid injections. Surgery- at end of month plan stent removal for pancrease and gallbladder surgery. Falls and safety precautions in place. Some financial burdens-dental and car. Healthy at Home number given to patient. Advised to call if any questions or concerns. Thanks [facility] for the call. Contact: Contact made with patient: Yes Spoke [...] since leaving the hospital? Better Weekly Outreach: 2nd Outreach Medications: Do you have any questions about taking your medications, including which medications you should be on, or do you need refills on your medications? No Patient Questions / Concerns: Do you have any questions related to your discharge? No Appointment / TCM Follow-Up: Have you had a follow-up visit with your Primary Care Provider or Specialist since you were discharged? Yes Do you need any assistance with scheduling or changing your follow-up appointments? Patient alreadyhas an appointment scheduled SDOH: Has Food and Housing been addressed in [employer] in the past 3 months? Yes EDUCATION--: Patient and family educated on issues/questions related to reason for admission, transition of care topics, and follow-up needed upon discharge. John Dunlap RN November 15, 2024 10:28 AM [facility] Telephone encounter Note * Telephone Encounter - Amara Owen MA - 11/15/2024 9:54 AM EDT HCTZ was refilled 11/05/24 #90 with 1 refills to [facility]. Message left for pt to call back. Amara Owen MA [facility]07-18-2025 NotePatient Outreach ([facility]) FRAN PAREKH ([id number]) 1945 Date Time Provider Department 11/15/24 JOHN DUNLAP [facility] During your visit today, we recorded the following information about you: John Dunlap RN 11/15/2024 10:47 AM Signed Transitional Care Management (TCM) Follow-Up Note PCP Update / Actionable Items N/A N/A - No specialty updates needed Patient Source: [id number]-Enpfqsb (OON) Discharge Outreach Summary: Outreach Summary: Feeling better. Denies any new or worsening symptoms. No questions or concerns at this time. Not wearing compression socks-not helping. Taking medications as prescribed. Monitoring diet/salt intake. Decreased intake pretzels/chips/pop/chocolate Pain management-steroid injections. Surgery- at end of month plan stent removal for pancrease and gallbladder surgery. Falls and safety precautions in place. Some financial burdens-dental and car. Healthy at Home number given to patient. Advised to call if any questions or concerns. Thanks [facility] for the call. Contact: Contact made with patient: Yes Spoke [...] since leaving the hospital? Better Weekly Outreach: 2nd Outreach Medications: Do you have any questions about taking your medications, including which medications you should be on, or do you need refills on your medications? No Patient Questions / Concerns: Do you have any questions related to your discharge? No Appointment / TCM Follow-Up: Have you had a follow-up visit with your Primary Care Provider or Specialist since you were discharged? Yes Do you need any assistance with scheduling or changing your follow-up appointments? Patient already has an appointment scheduled SDOH: Has Food and Housing been addressed in [employer] in the past 3 months? Yes EDUCATION--: Patient and family educated on issues/questions related to reason for admission, transition of care topics, and follow-up needed upon discharge. John Dunlap RN November 15, 2024 10:28 AM Allergies As of Date: 11/15/2024 Noted Allergy Reaction NORVASC (AMLODIPINE BESYLATE) 09/14/2016 7 - Swelling Comments: pedal edema VENOM-WASP 01/14/2005 7 - Swelling ZITHROMAX (AZITHROMYCIN) 01/14/2005 9 - Itching Date Reviewed: 10/31/2024 Reviewed by: Kulwinder Dickson LPN - Fully Assessed Reason for Visit: Transition Of Care [4074] Cmt: Second outreach Prescriptions as of 11/15/2024 - levothyroxine (SYNTHROID) 125 mcg tablet TAKE 1 TABLET BY MOUTH EVERY DAY ON AN EMPTY STOMACH FOR THYROID - metoprolol succinate ER (TOPROL XL) 50 mg 24 hr tablet Take 1 tablet by mouth once daily. - hydroCHLOROthiazide 25 mg tablet Take 1 tablet by mouth once daily. - CPAP/BIPAP/OTHER APAP 10-20 cmH2O DME [facility] - apixaban (ELIQUIS) 5 mg tab(s) Take 1 tablet by mouth two times a day. - atorvastatin (LIPITOR) 40 mg tablet Take [...] mouth daily at bedtime. - CPAP AutoPAP [id number]. Mask per preference, tubing, filters, humidity. [employer]. Dx: G47.33. Fax 30 day compliance report to [phone]. - CPAP Please provide mask fitting. Pt [...] tablet daily. Problem List As Of Date 11/15/2024 Noted Resolved Primary hypertension [I10] 03/11/2005 Hypertrophy of prostate with urinary obstructio*06/01/2006 BLADDER NECK OBSTRUCTION [N32.0] 06/01/2006 Plantar fascial fibromatosis [M72.2] 11/02/2006 05/09/2014 Ingrowing nail [L60.0] 11/26/2007 05/09/2014 Hypothyroidism [E03.9] 03/25/2009 Open fracture of distal phalangeal tuft [[id number]*08/31/2011 05/09/2014 Internal derangement of right knee [M23.91] 05/07/2012 Intention tremor [G25.2] 05/07/2012 Benign prostatic hyperplasia with lower urinary*01/15/2013 Nocturia [R35.1] 01/15/2013 Right flank pain [R10.9] 02/04/2013 05/09/2014 Right kidney stone [N20.0] 02/04/2013 05/09/2014 Right renal mass [N28.89] 02/04/2013 Right lower lobe lung mass [R91.8] (more content not included)... [facility]07-16-2025 Telephone encounter Note* Telephone Encounter - Alondra Azar - 11/13/2024 2:12 PM EDT Prescription Refill Information The patient has been identified by name and date of : Yes Caregiver verified no other encounters exist for this prescription request: Yes Caregiver confirmed with patient/requestor that no other refills are due, in the near future, with this provider at this time: Yes The last office visit in the department: 10-28-24 Does the patient have a future office visit with this provider/department: Yes Requested Prescriptions Pending Prescriptions Disp Refills hydroCHLOROthiazide 25 mg tablet 90 tablet 1 Sig: Take 1 tablet by mouth once daily. Alondra Azar November 13, 2024 2:12 PM [facility]07-07-2025 Telephone encounter Note* Telephone Encounter - Marielle Barahona - 11/04/2024 3:20 PM EDT Prescription Refill Information The patient has been identified by name and date of : Yes Caregiver verified no other encounters exist for this prescription request: Yes Caregiver confirmed with patient/requestor that no other refills are due, in the near future, with this provider at this time: Yes The last office visit in the department: 10/28/24 Does the patient have a future office visit with this provider/department: Yes Requested Prescriptions Pending Prescriptions Disp Refills levothyroxine (SYNTHROID) 125 mcg tablet 90 tablet 3 Sig: TAKE 1 TABLET BY MOUTH EVERY DAY ON AN EMPTY STOMACH FOR THYROID metoprolol succinate ER (TOPROL XL) 50 mg 24 hr tablet 90 tablet 1 Sig: Take 1 tablet by mouth once daily. hydroCHLOROthiazide 25 mg tablet 90 tablet 1 Sig: Take 1 tablet by mouth once daily. Marielle Barahona November 04, 2024 3:21 PM [facility]07-07-2025 Miscellaneous Notes* Telephone Encounter - Marielle Barahona - 11/04/2024 3:20 PM EDT Prescription Refill Information The patient has been identified by name and date of : Yes Caregiver verified no other encounters exist for this prescription request: Yes Caregiver confirmed with patient/requestor that no other refills are due, in the near future, with this provider at this time: Yes The last office visit in the department: 10/28/24 Does the patient have a future office visit with this provider/department: Yes Requested Prescriptions Pending Prescriptions Disp Refills levothyroxine (SYNTHROID) 125 mcg tablet 90 tablet 3 Sig: TAKE 1 TABLET BY MOUTH EVERY DAY ON AN EMPTY STOMACH FOR THYROID metoprolol succinate ER (TOPROL XL) 50 mg 24 hr tablet 90 tablet 1 Sig: Take 1 tablet by mouth once daily. hydroCHLOROthiazide 25 mg tablet 90 tablet 1 Sig: Take 1 tablet by mouth once daily. Marielle Barahona November 04, 2024 3:21 PM documented in this encounterUpper [facility]07-03-2025 NoteHNO ID: [id number] Author: KULWINDER DICKSON LPN Service: ? Author Type: LICENSED NURSE Type: Progress Notes Filed: 10/31/2024 13:28 Note Text: Faxed Cpap mask/supply order to [facility]. [facility] History of Present illness Narrative* Kulwinder Dickson LPN - 10/31/2024 1:28 PM EDT Faxed Cpap mask/supply order to [facility]. Kulwinder Dickson LPN * Ghazala Kumar APRN.RUBÉN - 10/31/2024 11:00 AM EDT Images from the original note were not included. [facility] Follow up/ Established patient visit Assessment/Plan from last visit: Date of last visit : 02/11/22 ASSESSMENT/PLAN: 1. MARTIN on CPAP - ICD9: 327.23, V46.8, ICD10: G47.33, Z99.89 Patient doing well on PAP therapy. Remains compliant from both subjective and objective standpoints. Reminded to clean and replace PAP equipment regularly. Will order new PAP device with patient's being outdated and appears due for new equipment. Rx sent to [facility]. Advised pt not to drive or operate heavy machinery when sleepy. Follow up in 1 year. Bruno Marquez MD CURRENT VISIT: 10/31/2024 Fran Parekh is an 79 year old male who presents for routine follow up for severe MARTIN on autoCPAP. Needs rx for supplies, DME [facility]. He has no PAP or sleep concerns. I was 5 min late for his appointment. SLEEP APNEA Sleep apnea type : MARTIN, Most Recent Apnea-Hypopnea Index (AHI): 35 on HSAT Treatment : PAP therapy DME: [facility] PAP History: Uses AutoPAP for 8.5 hours per night, 7 nights per week. Current PAP settin-20 cm H2O. Difficulties with AutoPAP: None Reviewed objective PAP compliance data: AHI 3.8 Mask type: nasal mask Mask issues: none There is a perceived benefit by the patient: health benefits PATIENT-ENTERED QUESTIONNAIRE SLEEP SCORES: 11/22/2017 Insomnia Severity Index Score 1 08/02/2016 11/22/2017 07/30/2020 PHQ-9 Score 0 0 0 10/27/2022 12/18/2023 09/25/2024 PROMIS Global Health - (T-Scores - the mean of general population = 50. Five points is a clinicallymeaningful difference.) Physical T-Score 39.8 39.8 42.3 Mental T-Score 48.3 50.8 53.3 11/22/2017 Insomnia Severity Index Score 1 08/02/2016 11/22/2017 07/30/2020 PHQ-9 Score 0 0 0 10/27/2022 12/18/2023 09/25/2024 PROMIS Global Health - (T-Scores - the mean of general population = 50. Five points is a clinicallymeaningful difference.) Physical T-Score 39.8 39.8 42.3 Mental T-Score 48.3 50.8 53.3 ALLERGIES Allergen Reactions Norvasc [Amlodipine* Swelling pedal edema Venom-Wasp Swelling Zithromax [Azithrom* Itching CURRENT MEDICATIONS: apixaban (ELIQUIS) 5 mg tab(s) Take 1 [...] by mouth daily at bedtime. CPAP AutoPAP [id number]. Mask per preference, tubing, filters, humidity. [employer]. Dx: G47.33. Fax 30 day compliance report to [phone]. CPAP Please provide mask fitting. Pt with subjective and some degree objective leaks. Prefers nasaltype mask. Thank you. DME = [facility] acetaminophen 650 mg CR tablet Take 650 mg by mouth as needed. aspirin, enteric coated (ASPIRIN, ENTERIC COATED) 81 mg EC tablet Take 81 mg by mouth once daily. MULTIVITAMIN,TX-MINERALS ORAL TAB Take one(1) tablet daily. CPAP/BIPAP/OTHER APAP 10-20 cmH2O DME [facility] PHYSICAL EXAMINATION: Vital Signs: BP 149/90 Pulse 60 Resp 16 Wt 132.9 kg (293 lb) SpO2 97% BMI 42.61 kg/m PHYSICAL EXAM: General appearance: NAD Mental status: alert and oriented, able to provide own history Constitutional: obese Skin: No visible rashes on exposed skin Neuro: No focal deficits observed, no tremors Assessment /Plan Martin on cpap (primary encounter diagnosis) Fran Mueller Marinosanaz is a 79 year old male with severe MARTIN on autoCPAP --Patient is compliant with PAP therapy and reports subjective benefits from treatment --We reviewed PAP compliance report; AHI is normalized - Continue Auto CPAP at 10-20, DME [id number]. - Remember to clean your mask and equipment regularly, as directed. - You should be eligible for new supplies approximately every 3-6 months, depending on your insurance coverage. Contact your Durable Medical Equipment (DME) company for new supplies as needed. - Follow up in [address] Antwan Kumar APRN.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 documented in this encounterUpper [facility]07-[facility]-2025 NoteHNO ID: [id number] Author: JOHN DUNLAP RN Service: ? Author Type: Registered Nurse Type: Progress Notes Filed: 10/31/2024 12:04 Note Text: Transitional Care Management (TCM) Follow-Up Note PCP Update / Actionable Items N/A N/A - No specialty updates needed Patient Source: Ujy-ok-Akyrlkd (OON) Discharge Booker Outreach Summary: Reports feeling better. No questions or concerns at this time. Monitoring diet/salt intake. Denies any new or worsening symptoms at this time. Healthy at Home number given to patient. Advised to call if any questions or concerns. Thanks [facility] for the call. Contact: Contact made with patient: Yes Spoke [...] have any questions related to your discharge? No Appointment / TCM Follow-Up: Have you had a follow-up visit with your Primary Care Provider or Specialist since you were discharged? Yes Do you need any assistance with scheduling or changing your follow-up appointments? Patient already has an appointment scheduled EDUCATION: Patient and family educated on issues/questions related to reason for admission, transition of care topics, and follow-up needed upon discharge. John Dunlap RN October 31, 2024 12:01 [facility]07-03-2025 History of Present illness Narrative* John Dunlap RN - 10/31/2024 12:00 PM EDT Transitional Care Management (TCM) Follow-Up Note PCP Update / Actionable Items N/A N/A - No specialty updates needed Patient Source: Jiy-ml-Fwhqiez (OON) Discharge Booker Outreach Summary: Reports feeling better. No questions or concerns at this time. Monitoring diet/salt intake. Denies any new or worsening symptoms at this time. Healthy at Home number given to patient. Advised to call if any questions or concerns. Thanks [facility] for the call. Contact: Contact made with patient: Yes Spoke [...] have any questions related to your discharge? No Appointment / TCM Follow-Up: Have you had a follow-up visit with your Primary Care Provider or Specialist since you were discharged? Yes Do you need any assistance with scheduling or changing your follow-up appointments? Patient alreadyhas an appointment scheduled EDUCATION: Patient and family educated on issues/questions related to reason for admission, transition of care topics, and follow-up needed upon discharge. John Dunlap RN October 31, 2024 12:01 PM documented in this encounterUpper [facility] Center07-03-2025 NoteHNO ID: [id number] Author: GHAZALA KUMAR APRN.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 Service: ? Author Type: Nurse Practitioner Type: Progress Notes Filed: 10/31/2024 11:19 Note Text: [facility] Follow up/ Established patient visit Assessment/Plan from last visit: Date of last visit : 02/11/22 ASSESSMENT/PLAN: 1. MARTIN on CPAP - ICD9: 327.23, V46.8, ICD10: G47.33, Z99.89 Patient doing well on PAP therapy. Remains compliant from both subjective and objective standpoints. Reminded to clean and replace PAP equipment regularly. Will order new PAP device with patient's being outdated and appears due for new equipment. Rx sent to [facility]. Advised pt not to drive or operate heavy machinery when sleepy. Follow up in 1 year. Bruno Marquez MD CURRENT VISIT: 10/31/2024 Fran Parekh is an 79 year old male who presents for routine follow up for severe MARTIN on autoCPAP. Needs rx for supplies, DME [facility]. He has no PAP or sleep concerns. I was 5 min late for his appointment. SLEEP APNEA Sleep apnea type : MARTIN, Most Recent Apnea-Hypopnea Index (AHI): 35 on HSAT Treatment : PAP therapy DME: [facility] PAP History: Uses AutoPAP for 8.5 hours per night, 7 nights per week. Current PAP settin-20 cm H2O. Difficulties with AutoPAP: None Reviewed objective PAP compliance data: AHI 3.8 Mask type: nasal mask Mask issues: none There is a perceived benefit by the patient: health benefits PATIENT-ENTERED QUESTIONNAIRE SLEEP SCORES: 11/22/2017 Insomnia Severity Index Score 1 08/02/2016 11/22/2017 07/30/2020 PHQ-9 Score 0 0 0 10/27/2022 12/18/2023 09/25/2024 PROMIS Global Health - (T-Scores - the mean of general population = 50. Five points is a clinically meaningful difference.) Physical T-Score 39.8 39.8 42.3 Mental T-Score 48.3 50.8 53.3 11/22/2017 Insomnia Severity Index Score 1 08/02/2016 11/22/2017 07/30/2020 PHQ-9 Score 0 0 0 10/27/2022 12/18/2023 09/25/2024 PROMIS Global Health - (T-Scores - the mean of general population = 50. Five points is a clinically meaningful difference.) Physical T-Score 39.8 39.8 42.3 Mental T-Score 48.3 50.8 53.3 ALLERGIES Allergen Reactions Norvasc [Amlodipine* Swelling pedal edema Venom-Wasp Swelling Zithromax [Azithrom* Itching CURRENT MEDICATIONS: apixaban (ELIQUIS) 5 mg tab(s) Take 1 [...] by mouth daily at bedtime. CPAP AutoPAP [id number]. Mask per preference, tubing, filters, humidity. [employer]. Dx: G47.33. Fax 30 day compliance report to [phone]. CPAP Please provide mask fitting. Pt with subjective and some degree objective leaks. Prefers nasal type mask. Thank you. DME = [facility] acetaminophen 650 mg CR tablet Take 650 mg by mouth as needed. aspirin, enteric coated (ASPIRIN, ENTERIC COATED) 81 mg EC tablet Take 81 mg by mouth once daily. MULTIVITAMIN,TX-MINERALS ORAL TAB Take one(1) tablet daily. CPAP/BIPAP/OTHER APAP 10-20 cmH2O DME [facility] PHYSICAL EXAMINATION: Vital Signs: BP 149/90 Pulse 60 Resp 16 Wt 132.9 kg (293 lb) SpO2 97% BMI 42.61 kg/m? PHYSICAL EXAM: General appearance: NAD Mental status: alert and oriented, able to provide own history Constitutional: obese Skin: No visible rashes on exposed skin Neuro: No focal deficits observed, no tremors Assessment /Plan Martin on cpap (primary encounter diagnosis) Fran Parekh is a 79 year old male with severe MARTIN on autoCPAP --Patient is compliant with PAP therapy and reports subjective benefits from treatment --We reviewed PAP compliance report; AHI is normalized - Continue Auto CPAP at 10-20, DME [id number]. - Remember to clean your mask and equipment regularly, as directed. - You should be eligible for new supplies approximately every 3-6 months, depending on your insurance coverage. Contact your Durable Medical Equipment (DME) company for new supplies as needed. - Follow up in [address] Antwan Kumar APRN.[facility]07-03-2025 NotePatient Outreach ([facility]) FRAN PAREKH ([id number]) 1945 M Date Time Provider Department 10/31/24 JOHN DUNLAP [facility] [place] [facility] [place] During your visit today, we recorded the following information about you: John Dunlap RN 10/31/2024 12:04 PM Signed Transitional Care Management (TCM) Follow-Up Note PCP Update / Actionable Items N/A N/A - No specialty updates needed Patient Source: Les-ah-Zmsethd (OON) Discharge Mil Outreach Summary: Reports feeling better. No questions or concerns at this time. Monitoring diet/salt intake. Denies any new or worsening symptoms at this time. Healthy at Home number given to patient. Advised to call if any questions or concerns. Thanks [facility] for the call. Contact: Contact made with patient: Yes Spoke [...] have any questions related to your discharge? No Appointment / TCM Follow-Up: Have you had a follow-up visit with your Primary Care Provider or Specialist since you were discharged? Yes Do you need any assistance with scheduling or changing your follow-up appointments? Patient already has an appointment scheduled EDUCATION: Patient and family educated on issues/questions related to reason for admission, transition of care topics, and follow-up needed upon discharge. John Dunlap RN October 31, 2024 12:01 PM Allergies As of Date: 10/31/2024 Noted Allergy Reaction NORVASC (AMLODIPINE BESYLATE) 09/14/2016 7 - Swelling Comments: pedal edema VENOM-WASP 01/14/2005 7 - Swelling ZITHROMAX (AZITHROMYCIN) 01/14/2005 9 - Itching Date Reviewed: 10/31/2024 Reviewed by: Kulwinder Dickson LPN - Fully Assessed Reason for Visit: Transition Of Care [4074] Cmt: First outreach Prescriptions as of 10/31/2024 - CPAP/BIPAP/OTHER APAP 10-20 cmH2O DME [facility] - apixaban (ELIQUIS) 5 mg tab(s) Take 1 tablet by mouth two times a day. - atorvastatin (LIPITOR) 40 mg tablet Take [...] mouth daily at bedtime. - CPAP AutoPAP [id number]. Mask per preference, tubing, filters, humidity. [employer]. Dx: G47.33. Fax 30 day compliance report to [phone]. - CPAP Please provide mask fitting. Pt [...] tablet daily. Problem List As Of Date 10/31/2024 Noted Resolved Primary hypertension [I10] 03/11/2005 Hypertrophy of prostate with urinary obstructio*06/01/2006 BLADDER NECK OBSTRUCTION [N32.0] 06/01/2006 Plantar fascial fibromatosis [M72.2] 11/02/2006 05/09/2014 Ingrowing nail [L60.0] 11/26/2007 05/09/2014 Hypothyroidism [E03.9] 03/25/2009 Open fracture of distal phalangeal tuft [[id number]*08/31/2011 05/09/2014 Internal derangement of right knee [M23.91] [...] edema, bilateral [M25.471, M25.472] 02/04/2019 Class 2 obe (more content not included)...[facility]07-02-2025 Telephone encounter Note* Telephone Encounter - Sissy Campbell LPN - 10/30/2024 10:37 AM EDT Patient scheduled for 10/31/24 with [facility]. Sissy Campbell LPN [facility]07-02-2025 Miscellaneous Notes* Telephone Encounter - Sissy Campbell LPN - 10/30/2024 10:37 AM EDT Patient scheduled for 10/31/24 with [facility]. Sissy Campbell LPN * Telephone Encounter - Kulwinder Dickson LPN - 10/30/2024 9:18 AM EDT TC to pt. LM to call office, to schedule Cpap follow up appointment with either Dr Marquez or Valerie. 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 Please phone pt to schedule appt with sleep provider. documented in this encounterUpper [facility] Center07-[facility]-2025 Telephone encounter Note * Telephone Encounter - Kulwinder Dickson LPN - 10/30/2024 9:18 AM EDT TC to pt. LM to call office, to schedule Cpap follow up appointment with either Dr Marquez or Valerie. 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 Please phone pt to schedule appt with sleep provider. [facility]-30[facility] Instructions* Patient Instructions* Marilia Orozco APRN.CNP - 10/28/2024 2:29 PM EDT - Continue your current home medications as prescribed: lisinopril, atorvastatin, Eliquis, levothyroxine, hydrochlorothiazide, multivitamin, aspirin, gabapentin, and metoprolol. - Maintain a bland, electrode turner and finisher diet and avoid snacking; gradually add other foods as you continue to feel better. - Consider enrolling in the [facility] Why weight program for guided nutrition education and support with weight loss. - Follow up with Dr. Sher next week to have your biliary stent removed and discuss performing a colonoscopy during the same procedure. - Return to see me on February 12 to review your overall progress. - Hand x-ray results reviewed: no acute injury detected; changes consistent with osteoarthritis.' documented in this encounterUpper Valley Medical Center06-30-2025 NoteHNO ID: [id number] Author: MARILIA OROZCO APRN.RUBÉN Service: ? Author Type: Nurse Practitioner Type: Progress Notes Filed: 10/28/2024 14:29 Note Text: 10/28/2024 Patient presents with: Hospital F/U Recording using modulR software for draft documentation of the visit was discussed with the patient/authorized passenger service representative; all questions welcomed and answered. Patient/authorized passenger service representative agreed to proceed SUBJECTIVE: This is a 79 year old that is here today for Above Complaints. Fever of Unknown Origin: - Hospitalized from 02/20 to 02/23 for fever, nausea, and emesis. - Underwent chest X-ray, CT abdomen/pelvis, and MRCP during hospitalization. - Treated with IV antibiotics; no definitive cause for fever identified. - No scopes performed during hospital stay. - Follow-up with Dr. Sher scheduled for next week; plans for stent removal and possible colonoscopy. - No recurrence of fever, nausea, or emesis since discharge. - Monitoring diet closely, eating electrode turner and finisher meals, and avoiding snacks. - No new medications prescribed at discharge. - Bowel movements reported as normal. Available hospital records reviewed Transition Care Management (TCM) Initial Outreach PCP Update / Actionable Items N/A Navigation Team Update / Actionable Items Readmission Risk Score: N/A-Out of Network Please assist with scheduling Hospital follow up with Provider in PCP office-Marilia Orozco APRN, CNP within 14 days. Thank you[facility] Source of Stratification: [facility] Hospital Admission Status: Discharged Readmission Risk Score: N/A OON Patient's zip code: [address] Is zip code within program service area: No Patient meets program referral criteria: No Patient does not qualify for High Risk TCM Home Visit program due to: Patient's zip code is not located within program service area Readmission Risk Score does not meet criteria Disposition: Patient does not qualify for HRTIC, will provide TCM outreach follow-up for 30-days Patient Source: Zgw-fp-Jsswyta (OON) Discharge Outreach Summary: Patient feeling much better. 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 Does not like wearing compression stockings. Watching salt intake in diet. States needs to start exercising and eating healthier. Wears CPAP at night. Needs: PCP follow up within 14 days Denies fever, chills, fever, chills, breathing concerns, bleeding concerns. Agreeable to TCM weekly phone calls. Healthy at Home number given to patient. Advised to call if any questions or concerns. Thanks [facility] for the call. Patient discharged from Out of [facility] Discharge date: 10/24/2024 Admitted for: Fever, nausea, vomiting, Cholangitis, ROSSANA Readmission Risk: N/A OON Value-Based Contract: ACO Contact: Contact made with patient: Yes Hi, my name is John Dunlap RN and I am calling from the [facility] on behalf of your Primary Care Provider, Agnes Del Rosario MD. I understand you were recently in [...] Partial mediation review completed, per patient preference Discharge Instructions: Your Discharge Instructions / After Visit Summary (AVS) are important in guiding you through the recovery process. Do you have any questions related to your discharge instructions? No Home Care: Were you discharged with home care? No Equipment: Do you have all the necessary equipment and supplies needed at your home? No Reviewed equipment and supplies needed Facilitated any orders and/or provider updates on behalf of the patient as needed Social: Your mental health is as important to us as your physical health. Would you mind answering a few questions on this topic? Yes On the Storyboard review: Food Insecurity, Transportation, Depression, Housing, and Financial Strain: Complete any SDOHs, listed above, if not addressed in the past 3 months. If all SDOHs, listed above, have been addressed within the last 3 months, confirm responses and update any SDOHs that have changed. Action Taken: No needs verbalized. No action required. Follow-Up Appointment: [Appointment / TCM Follow-up within 14 days] I would like to help you schedule a hospital follow-up virtual or telephone visit with your PCP. This is a great wa (more content not included)...[facility]06-30-2025 History of Present illness Narrative* Marilia Orozco APRN.CNP - 10/28/2024 1:40 PM EDT 10/28/2024 Patient presents with: Hospital F/U Recording using ambient Prior Knowledge software for draft documentation of the visit was discussed with the patient/authorized passenger service representative; all questions welcomed and answered. Patient/authorized passenger service representative agreed to proceed SUBJECTIVE: This is a 79 year old that is here today for Above Complaints. Fever of Unknown Origin: - Hospitalized from 02/20 to 02/23 for fever, nausea, and emesis. - Underwent chest X-ray, CT abdomen/pelvis, and MRCP during hospitalization. - Treated with IV antibiotics; no definitive cause for fever identified. - No scopes performed during hospital stay. - Follow-up with Dr. Sher scheduled for next week; plans for stent removal and possible colonoscopy. - No recurrence of fever, nausea, or emesis since discharge. - Monitoring diet closely, eating electrode turner and finisher meals, and avoiding snacks. - No new medications prescribed at discharge. - Bowel movements reported as normal. Available hospital records reviewed Transition Care Management (TCM) Initial Outreach PCP Update / Actionable Items N/A Navigation Team Update / Actionable Items Readmission Risk Score: N/A-Out of Network Please assist with scheduling Hospital follow up with Provider in PCP office- Marilia Orozco APRN, CNP within 14 days. Thank you! HRTIC TCM Home Visit Referral Source of Stratification: [facility] Hospital Admission Status: Discharged Readmission Risk Score: N/A OON Patient's zip code: [address] Is zip code within program service area: No Patient meets program referral criteria: No Patient does not qualify for High Risk TCM Home Visit program due to: Patient's zip code is not located within program service area Readmission Risk Score does not meet criteria Disposition: Patient does not qualify for HRTIC, will provide TCM outreach follow-up for 30-days Patient Source: Yuq-ed-Gejcisk (OON) Discharge Outreach Summary: Patient feeling much better. 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 Does not like wearing compression stockings. Watching salt intake in diet. States needs to start exercising and eating healthier. Wears CPAP at night. Needs: PCP follow up within 14 days Denies fever, chills, fever, chills, breathing concerns, bleeding concerns. Agreeable to TCM weekly phone calls. Healthy at Home number given to patient. Advised to call if any questions or concerns. Thanks [facility] for the call. Patient discharged from Out of [facility] Discharge date: 10/24/2024 Admitted for: Fever, nausea, vomiting, Cholangitis, ROSSANA Readmission Risk: N/A OON Value-Based Contract: ACO Contact: Contact made with patient: Yes Hi, my name is John Dunlap RN and I am calling from the [facility] on behalf of your Primary Care Provider, Agnes Del Rosario MD. I understand you were recently in [...] Partial mediation review completed, per patient preference Discharge Instructions: Your Discharge Instructions / After Visit Summary (AVS) are important in guiding you through the recovery process. Do you have any questions related to your discharge instructions? No Home Care: Were you discharged with home care? No Equipment: Do you have all the necessary equipment and supplies needed at your home? No Reviewed equipment and supplies needed Facilitated any orders and/or provider updates on behalf of the patient as needed Social: Your mental health is as important to us as your physical health. Would you mind answering a few questions on this topic? Yes On the Storyboard review: Food Insecurity, Transportation, Depression, Housing, and Financial Strain: Complete any SDOHs, listed above, if not addressed in the past 3 months. If all SDOHs, listed above, have been addressed within the last 3 months, confirm responses and update any SDOHs that have changed. Action Taken: No needs verbalized. No action required. Follow-Up Appointment: [Appointment / TCM Follow-up within 14 days] I would like to help you schedule a hospital follow-up virtual or telephone visit with your PCP. This is a great way for you to connect with your provider to ensure you have safely transitioned home.If you are agreeable, I will send your request to a district director who will contact and assist you with that appointment. This will give you an opportunity to ask any questions or address any concerns youmay have with your PCP. Inform the patient that if they have any questions or concerns prior to that appointment, to call their PCP's office right away. Appointment Action: Patient desires an appointment. Complete Navigation Team box and route to appropriate pool for scheduling. Education details: Patient and family educated on issues/questions related to reason for admission,transition of care topics, and follow-up needed upon discharge. John Dunlap RN October 25, 2024 1:46 PM ALLERGIES Norvasc [Amlodipine Besylate], Venom-Wasp, and Zithromax [...] by mouth daily at bedtime. CPAP AutoPAP [id number]. Mask per preference, tubing, filters, humidity. [employer] Supplies. Dx: G47.33. Fax 30 day compliance report to [phone]. CPAP Please provide mask fitting. Pt with [...] and negative other than HPI. OBJECTIVE: BP 138/76 Pulse (!) 54 Temp 36.7 C (98.1 F) Resp 18 Wt 132.3 kg (291 lb 9.6 oz) SpO2 95% BMI 42.41 kg/m . Vital signs reviewed by this provider. APPEARANCE Well appearing, alert, in no acute distress, well-hydrated, well nourished. EYES conjunctiva and sclera normal. HEART RRR with normal S1 and S2, no murmurs, no gallops, no JVD appreciated LUNG clear to auscultation. No wheezes, rhonchi or rales ABDOMEN bowel sounds normoactive, no bruits, soft, non-tender, non-distended EXTREMITIES Extremities normal, No deformities, No skin discoloration, and No edema SKIN Skin color, texture, turgor normal, no suspicious rashes or lesions Depression Screening Never done Anxiety Screening Never done Medicare Annual Wellness Visit due on 04/13/2023 Advance Directive Discussion Never done Covid-19 Vaccine( season) due on 08/14/2024 Hemoglobin/Hematocrit due on 01/18/2025 LDL Cholesterol due on 08/15/2025 Serum Creatinine due on 08/15/2025 Annual PCP Team Chronic Disease Visit due on 10/08/2025 Diabetes Screening due on 08/16/2027 DTaP,Tdap,Td Vaccine(3 - Td or Tdap) due on 07/31/2029 Influenza Vaccine Completed RSV Vaccine Completed Shingrix Vaccine Completed Pneumococcal Vaccine: 50+ Completed Colorectal Cancer Screening Discontinued 1. Hospital discharge follow-up (Z09) 2. Cholangitis (HCC) (K83.09) 3. Nausea and vomiting, unspecified vomiting type (R11.2) 4. Fever of unknown origin (R50.9) - Recent hospitalization from 02/20 to 02/23 for fever, nausea, and vomiting; no definitive etiology identified. - Evaluated with chest X-ray, CT abdomen and pelvis - Differential diagnoses included cholangitis and acute gastroenteritis. - Blood cultures during hospitalization showed no growth. - Discharged on current medications: lisinopril, atorvastatin, Eliquis, levothyroxine, hydrochlorothiazide, multivitamin, aspirin, gabapentin, and metoprolol. - No new medications prescribed at discharge - Advised to maintain a bland diet and gradually progress as tolerated. - Follow-up with Dr. Sher scheduled for next week; potential colonoscopy and stent removal discussed. - Next appointment with me on February 12. Prescription instructions reviewed with patient as applicable. Patient advised if symptoms do not improve or if symptoms worsen sooner, to contact their primary care physician. Potential red flag symptoms discussed with the patient. Reviewed appropriate action plan to take if red flag symptoms occur. Patient agreeable to treatment plan [facility] NoteHNO ID: [id number] Author: ?, ?, ? Service: ? Author Type: ? Type: Progress Notes Filed: 10/25/2024 14:29 Note Text: POPULATION HEALTH NAVIGATION OUTREACH Action/FYI Spoke to patient. Scheduled TCM follow up with manufacturing sr engineer on 10-28-24. Agreeable to see manufacturing sr engineer. discharged from Out of [facility] Discharge date: 10/24/2024 Admitted for: Fever, nausea, vomiting, Cholangitis, ROSSANA Readmission Risk: N/A OON Care gaps- medicare wellness Reason for Outreach Community Monitoring/Network Navigator Pools AND Phone Line: CM Pool Care Gaps due: Medicare Annual Wellness Visit Follow-up Appointment Patient Contacted: Spoke to patient/parent/or legal guardian Patient identified by name and : Yes Community Monitoring/Network Navigator Pools AND Phone Line actions taken: Patient scheduled / pended orders: Hospital Follow-up: Low risk <9% [facility] - discharged from Out of [facility], Discharge date: 10/24/2024, Admitted for: Fever, nausea, vomiting, Cholangitis, ROSSANA, Readmission Risk: N/A OON 02/12/2025 in [facility] with MARILIA OROZCO - 6 month follow up Navigation Signature: Balbina Abbott Population Health Navigator October 25, 2024 2:24 [facility]06-27-2025 History of Present illness Narrative* [facility] NavigatorBalbina - 10/25/2024 2:24 PM EDT POPULATION HEALTH NAVIGATION OUTREACH Action/FYI Spoke to patient. Scheduled TCM follow up with rubén on 10-28-24. Agreeable to see manufacturing sr engineer. discharged from Out of Network- Discharge date: 10/24/2024 Admitted for: Fever, nausea, vomiting, Cholangitis, ROSSANA Readmission Risk: N/A OON Care gaps- medicare wellness Reason for Outreach Community Monitoring/Network Navigator Pools & Phone Line: CM Pool Care Gaps due: Medicare Annual Wellness Visit Follow-up Appointment Patient Contacted: Spoke to patient/parent/or legal guardian Patient identified by name and : Yes Community Monitoring/Network Navigator Pools & Phone Line actions taken: Patient scheduled / pended orders: Hospital Follow-up: Low risk <9% 10/28/2024 in [facility] with MARILIA OROZCO - discharged from Out of Network-, Dischargedate: 10/24/2024, Admitted for: Fever, nausea, vomiting, Cholangitis, ROSSANA, Readmission Risk: N/A OON 02/12/2025 in [facility] with MARILIA OROZCO - 6 month follow up Navigation Signature: Balbina Abbott [facility] Navigmonty October 25, 2024 2:24 PM * John Dunlap RN - 10/25/2024 1:45 PM EDT Transition Care Management (TCM) Initial Outreach PCP Update / Actionable Items N/A Navigation Team Update / Actionable Items Readmission Risk Score: N/A-Out of Network Please assist with scheduling Hospital follow up with Provider in PCP office- Marilia Orozco APRN, CNP within 14 days. Thank you! HRTIC TCM Home Visit Referral Source of Stratification: [facility] Hospital Admission Status: Discharged Readmission Risk Score: N/A OON Patient's zip code: [address] Is zip code within program service area: No Patient meets program referral criteria: No Patient does not qualify for High Risk TCM Home Visit program due to: Patient's zip code is not located within program service area Readmission Risk Score does not meet criteria Disposition: Patient does not qualify for HRTIC, will provide TCM outreach follow-up for 30-days Patient Source: Bru-sf-Ekymfnm (OON) Discharge Outreach Summary: Patient feeling much better. 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 Does not like wearing compression stockings. Watching salt intake in diet. States needs to start exercising and eating healthier. Wears CPAP at night. Needs: PCP follow up within 14 days Denies fever, chills, fever, chills, breathing concerns, bleeding concerns. Agreeable to TCM weekly phone calls. Healthy at Home number given to patient. Advised to call if any questions or concerns. Thanks [facility] for the call[facility]: [facility] Admitted for: Fever, nausea, vomiting, Cholangitis, ROSSANA Readmission Risk: N/A OON Value-Based Contract: ACO Contact: Contact made with patient: Yes Hi, my name is John Dunlap RN and I am calling from the [facility] on behalf of your Primary Care Provider, Agnes Del Rosario MD. I understand you were recently in [...] Partial mediation review completed, per patient preference Discharge Instructions: Your Discharge Instructions / After Visit Summary (AVS) are important in guiding you through the recovery process. Do you have any questions related to your discharge instructions? No Home Care: Were you discharged with home care? No Equipment: Do you have all the necessary equipment and supplies needed at your home? No Reviewed equipment and supplies needed Facilitated any orders and/or provider updates on behalf of the patient as needed Social: Your mental health is as important to us as your physical health. Would you mind answering a few questions on this topic? Yes On the Storyboard review: Food Insecurity, Transportation, Depression, Housing, and Financial Strain: Complete any SDOHs, listed above, if not addressed in the past 3 months. If all SDOHs, listed above, have been addressed within the last 3 months, confirm responses and update any SDOHs that have changed. Action Taken: No needs verbalized. No action required. Follow-Up Appointment: [Appointment / TCM Follow-up within 14 days] I would like to help you schedule a hospital follow-up virtual or telephone visit with your PCP. This is a great way for you to connect with your provider to ensure you have safely transitioned home.If you are agreeable, I will send your request to a district director who will contact and assist you with that appointment. This will give you an opportunity to ask any questions or address any concerns youmay have with your PCP. Inform the patient that if they have any questions or concerns prior to that appointment, to call their PCP's office right away. Appointment Action: Patient desires an appointment. Complete Navigation Team box and route to appropriate pool for scheduling. Education details: Patient and family educated on issues/questions related to reason for admission,transition of care topics, and follow-up needed upon discharge. John Dunlap RN October 25, 2024 1:46 PM documented in [facility]-27-2025 NoteHNO ID: [id number] Author: JOHN DUNLAP RN Service: ? Author Type: Registered Nurse Type: Progress Notes Filed: 10/25/2024 14:17 Note Text: Transition Care Management (TCM) Initial Outreach PCP Update / Actionable Items N/A Navigation Team Update / Actionable Items Readmission Risk Score: N/A-Out of Network Please assist with scheduling Hospital follow up with Provider in PCP office-Marilia Orozco APRN, CNP within 14 days. Thank you! HRTIC TCM Home Visit Referral Source of Stratification: [facility] Hospital Admission Status: Discharged Readmission Risk Score: N/A OON Patient's zip code: [address] Is zip code within program service area: No Patient meets program referral criteria: No Patient does not qualify for High Risk TCM Home Visit program due to: Patient's zip code is not located within program service area Readmission Risk Score does not meet criteria Disposition: Patient does not qualify for HRTIC, will provide TCM outreach follow-up for 30-days Patient Source: Dkp-lg-Hkmwtap (OON) Discharge Outreach Summary: Patient feeling much better. 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 Does not like wearing compression stockings. Watching salt intake in diet. States needs to start exercising and eating healthier. Wears CPAP at night. Needs: PCP follow up within 14 days Denies fever, chills, fever, chills, breathing concerns, bleeding concerns. Agreeable to TCM weekly phone calls. Healthy at Home number given to patient. Advised to call if any questions or concerns. Thanks [facility] for the call[facility]: [facility] Admitted for: Fever, nausea, vomiting, Cholangitis, ROSSANA Readmission Risk: N/A OON Value-Based Contract: ACO Contact: Contact made with patient: Yes Hi, my name is John Dunlap RN and I am calling from the [facility] on behalf of your Primary Care Provider, Agnes Del Rosario MD. I understand you were recently in [...] Partial mediation review completed, per patient preference Discharge Instructions: Your Discharge Instructions / After Visit Summary (AVS) are important in guiding you through the recovery process. Do you have any questions related to your discharge instructions? No Home Care: Were you discharged with home care? No Equipment: Do you have all the necessary equipment and supplies needed at your home? No Reviewed equipment and supplies needed Facilitated any orders and/or provider updates on behalf of the patient as needed Social: Your mental health is as important to us as your physical health. Would you mind answering a few questions on this topic? Yes On the Storyboard review: Food Insecurity, Transportation, Depression, Housing, and Financial Strain: Complete any SDOHs, listed above, if not addressed in the past 3 months. If all SDOHs, listed above, have been addressed within the last 3 months, confirm responses and update any SDOHs that have changed. Action Taken: No needs verbalized. No action [...] I will send your request to a district director who will contact and assist you with that appointment. This will give you an opportunity to ask any questions or address any concerns you may have with your PCP. Inform the patient that if they have any questions or concerns prior to that appointment, to call their PCP's office right away. Appointment Action: Patient desires an appointment. Complete Navigation Team box and route to appropriate pool for scheduling. Education details: Patient and family educated on issues/questions related to reason for admission, transition of care topics, and follow-up needed upon discharge. John Dunlap RN October 25, 2024 1:46 [facility]06-27-2025 NotePatient Outreach (BALWINDERCMG) FRAN PAREKH ([id number]) 1945 M Date Time Provider Department 10/25/24 JOHN DUNLAP During your visit today, we recorded the following information about you: John Dunlap RN 10/25/2024 2:17 PM Signed Transition Care Management (TCM) Initial Outreach PCP Update / Actionable Items N/A Navigation Team Update / Actionable Items Readmission Risk Score: N/A-Out of Network Please assist with scheduling Hospital follow up with Provider in PCP office-Marilia Orozco APRN, CNP within 14 days. Thank you! HRTIC TCM Home Visit Referral Source of Stratification: [facility] Hospital Admission Status: Discharged Readmission Risk Score: N/A OON Patient's zip code: [address] Is zip code within program service area: No Patient meets program referral criteria: No Patient does not qualify for High Risk TCM Home Visit program due to: Patient's zip code is not located within program service area Readmission Risk Score does not meet criteria Disposition: Patient does not qualify for HRTIC, will provide TCM outreach follow-up for 30-days Patient Source: Nrh-od-Cllcnfi (OON) Discharge Outreach Summary: Patient feeling much 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 Does not like wearing compression stockings. Watching salt intake in diet. States needs to start exercising and eating healthier. Wears CPAP at night. Needs: PCP follow up within 14 days Denies fever, chills, fever, chills, breathing concerns, bleeding concerns. Agreeable to TCM weekly phone calls. Healthy at Home number given to patient. Advised to call if any questions or concerns. Thanks [facility] for the call. Patient discharged from [facility] of [facility] Discharge date: 10/24/2024 Admitted for: Fever, nausea, vomiting, Cholangitis, ROSSANA Readmission Risk: N/A OON Value-Based Contract: ACO Contact: Contact made with patient: Yes Hi, my name is John Dunlap RN and I am calling from the [facility] on behalf of your Primary Care Provider, Agnes Del Rosario MD. I understand you were recently in [...] Partial mediation review completed, per patient preference Discharge Instructions: Your Discharge Instructions / After Visit Summary (AVS) are important in guiding you through the recovery process. Do you have any questions related to your discharge instructions? No Home Care: Were you discharged with home care? No Equipment: Do you have all the necessary equipment and supplies needed at your home? No Reviewed equipment and supplies needed Facilitated any orders and/or provider updates on behalf of the patient as needed Social: Your mental health is as important to us as your physical health. Would you mind answering a few questions on this topic? Yes On the Storyboard review: Food Insecurity, Transportation, Depression, Housing, and Financial Strain: Complete any SDOHs, listed above, if not addressed in the past 3 months. If all SDOHs, listed above, have been addressed within the last 3 months, confirm responses and update any SDOHs that have changed. Action Taken: No needs verbalized. No action [...] I will send your request to a district director who will contact and assist you with that appointment. This will give you an opportunity to ask any questions or address any concerns you may have with your PCP. Inform the patient that if they have any questions or concerns prior to that appointment, to call their PCP's office right away. Appointment Action: Patient desires an appointment. Complete Navigation Team box and route to appropriate pool for scheduling. Education details: Patient and family educated on issues/questions related to reason for admission, transition of care topics, and follow-up needed upon discharge. John Dunlap RN October 25, 2024 1:46 PM [facility] Population Health NavigatorBalbina (more content not included)... [facility]06-26-2025 [facility]06-26-2025 Discharge summary [facility] Medical Records Department [address] [place] [address] Instructions for Home/Discharge Instructions 10/24/24 1233 MR#: [id number] Acct: [id number] Name: FRAN PAREKH Rep #:[id number] : 1945 79 From: Marleny Tena DO PCP: Dr. Salvador Del Rosario MD Status :ADM IN Discharge Instructions Diet Discharge Diet: No restrictions DC O2, CPAP, BIPAP needs Home O2 Discharge instructions: No Dressing / Incision Discharge Activity: Return to Normal Activity Weight Bearing Status: Full weight bearing Follow Up Care Test Results: Test results from this visit will be discussed in further detail at your follow- up appointment, if applicable. Discharge Plan Admission Admit Date/Time: 10/22/24 04:38 Primary Reason for Your Visit: Fever of unknown origin Attending Provider: Marleny Tena Primary Care Provider: Salvador Del Rosario Consulting Providers: Werner Nunn Discharge Orders/Prescriptions Prescriptions: Continued lisinopril 40 MG tablet 40 mg PO DAILY Patient Comments: BLOOD PRESSURE atorvastatin 40 MG tablet 40 mg PO QHS Qty: 90 0RF Eliquis 5 mg tablet 5 mg PO BID levothyroxine 125 mcg tablet 125 mcg PO DAILY hydrochlorothiazide 25 mg tablet 25 mg PO DAILY multivitamin [Daily Multi-Vitamin] Tablet 1 tab PO DAILY aspirin [Adult Aspirin Regimen] 81 mg tablet,delayed release (DR/EC) 81 mg PO DAILY gabapentin 300 mg capsule 300 mg PO QHS metoprolol succinate 50 mg tablet extended release 24 hr 50 mg PO DAILY Referrals / Follow Up: Salvador Del Rosario MD [Primary Care Provider] - Disposition Disposition (needs filled in before D/C Order can be placed): Home, Self Care 10/24/24 Hannah Tena DO CC: Dr. Salvador Del Rosario MD; Dr. Werner Nunn DO ~ Signed [facility]06-25-2025 Progress note Author Alex Sher [facility] Note Date/Time October 23, 2024 6:[address] [facility] Medical Records Department [address] [place] [address] Progress Note 10/23/24 181 MR#: [id number] Acct: [id number] Name: FRAN PAREKH Rep #:[id number] : 1945 79 From: Alex Sher DO PCP: Dr. Salvador Del Rosario MD Status :ADM IN [facility] Note I saw patient today the patient and he is not have any abdominal pain and has been afebrile since admission. He is tolerating a regular diet without any problems. Physical Exam Const alert, oriented x3, no apparent distress and healthy appearing General Appearance: cooperative GI normal to inspection, nondistended, normoactive bowel sounds, soft to palpation,non-tender and non-distended Percussion: normal to percussion Rectal Exam: deferred Assessment & Plan Assessment/Plan (1) Cholangitis: PLAN: Plan Very pleasant 79-year-old gentleman with fever of unknown origin. His blood cultures have been negative thus far. He has been on IV antibiotics since beingin the hospital. If patient continues to be afebrile then he can be transitioned to oral antibiotics to finish at home. He has a follow-up visit with me in about 10 days in the clinic. Visit Charges Inpatient E&M: 21059 [facility] 10/23/241817 <Electronically signed by Alex Sher DO> Alex Sher DO Cosigner Signature (if applicable): CC: ~ Signed [facility] Work Phone: 1(879) 731-374306-25-[address] [facility] Medical Records Department [address] [place] [address] Progress Note 10/23/241815 MR#: [id number] Acct: [id number] Name: IGLESIAFRAN DOMINGUEZ Rep #:[id number] : 1945 79 From: Alex Sher DO PCP: Dr. Salvador Del Rosario MD Status :ADM IN [facility] Note I saw patient today the patient and he is not have any abdominal pain and has been afebrile since admission. He is tolerating a regular diet without any problems. Physical Exam Const alert, oriented x3, no apparent distress and healthy appearing General Appearance: cooperative GI normal to inspection, nondistended, normoactive bowel sounds, soft to palpation,non-tender and non-distended Percussion: normal to percussion Rectal Exam: deferred Assessment & Plan Assessment/Plan (1) Cholangitis: PLAN: Plan Very pleasant 79-year-old gentleman with fever of unknown origin. His blood cultures have been negative thus far. He has been on IV antibiotics since beingin the hospital. If patient continues to be afebrile then he can be transitioned to oral antibiotics to finish at home. He has a follow-up visitwith me in about 10 days in the clinic. Visit Charges Inpatient E&M: 39712 [facility] L3 10/23/241817 Alex Sher DO Cosigner Signature (if applicable): CC: ~ Signed [facility]06-25-2025 Consult note Author Alex Sher [facility] Note Date/Time October 23, 2024 4:00 pm [facility] Medical Records Department [address] [place] [address] Consultation - GI 10/22/241817 MR#: [id number] Acct: [id number] Name: FRAN PAREKH Rep #:[id number] : 1945 79 From: Alex Sher DO PCP: Dr. Salvador Del Rosario MD Status :ADM IN [facility] HPI Consult Data Date of Consult: 10/22/24 HPI Narrative Reason for Consultation: Fever HPI Narrative: FRAN PAREKH, is a 79 M who presented to the ED with nausea and vomiting for thelast hour or 2 and feeling poorly. No abdominal pain, chest pain, cough, dyspnea. He states he felt like he was sweating. He EMS was called because he felt poorly. EMS checked his temperature of 102.5, the patient did not know he had a fever prior to them checking. In the ED his white blood cell count was stable. He was noted to have a fever of up to 103 in the emergency room. Currently his fever is 100.4. His LFTs, amylase lipase have all been normal. Patient says that he has not been eating well for the past 2 days due to abdominal pain with nausea vomiting. GI history: [facility] hospitalization 03.26.24 - 03.28.24 dizziness - consulted [...] ERCP 07.04.24 Mucosal changes in the duodenum. The ampulla appeared somewhat abnormal. Biopsies were taken with a cold forceps for histology in the ampulla.Choledocholithiasis was found. Complete removal was accomplished by biliary sphincterotomy and balloon extraction. A biliary sphincterotomy was performed. The biliary tree was swept. One stent was removed from the biliary tree. Duodenum, ampulla, biopsy: - Fragments of inflamed small intestinal mucosa with focal low dysplasia and reactive changes ? see Comment. - Focal granulation tissue consistent with ulceration - IHC for CMV (cytomegalovirus) is negative (performed at [facility]) - IHC for p53 is wild-type. - IHC for Ki67 is not significantly increased ERCP/EGD 25: -One 10 Fr by 5 cm temporary stent [...] by scalloping were found in the ampulla. - Coagulation for destruction of remaining portion of lesion in the ampulla using hot biopsy forceps through the ERCP scope was successful. The polyp was removed with a piecemeal technique using a hot biopsy forceps. The polypectomy was performed through the ERCP scope. Resection and retrieval were complete. [facility] Medical History Carpal tunnel syndrome on both sides Cancer Wears glasses Thyroid disease Shingles Inguinal hernia Cardiology follow-up encounter History of stress test Choledocholithiasis Current use of snf 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 Elevated liver enzymes Pancreatic mass High [...] PO DAILY reduce fluid 03/26/24 10/06/24 History Held on 10/21/24. Instructions: does not think it does much levothyroxine 125 mcg tablet 125 mcg PO DAILY disorder of 03/26/24 10/06/24 History thyroid gland aspirin 81 mg tablet,delayed 81 mg PO DAILY 08/31/24 0 10/03/24 History release (Adult Aspirin Regimen) multivitamin (Daily Multi-Vitamin 1 tab PO DAILY 08/3110/06/24 History tablet) Allergy/AdvReac Type Severity Reaction Status Date / Time azithromycin (From Zithromax) Allergy Itching Verified 10/21/24 23:18 bee venom protein (honey bee) AdvReac Swelling Verified 10/21/24 23:18 venom-wasp (wasps) AdvReac Swelling Verified 10/21/24 23:18 Surgical History History of total right hip [...] rectal bleeding, tenesmus, vomiting or weight changes Physical Exam Const alert, oriented x3, no apparent distress and healthy appearing General Appearance: cooperative GI normal to inspection, nondistended, normoactive bowel sounds, soft to palpation,non-tender and non-distended Percussion: normal to percussion Rectal Exam: deferred Lab / Micro Data 10/22/24 00:35 10/22/24 00:35 Labs: Laboratory Results - last 24 hr 10/22/24 00:35: WBC 10.6, RBC 4.38 L, Hgb 13.8, Hct 41.2, MCV 94.1 H, MCH 31.5, MCHC 33.5, RDW Std Deviation 44.9 H, RDW Coeff of Gisella 13.1, Plt Count 197, MPV 9.8, Immature Gran % (Auto) 0.500, Neut % (Auto) 88.6 H, Lymph % (Auto) 4.8 L, [place] % (Auto) 5.8, Eos % (Auto) 0.1, Baso % (Auto) 0.2, Absolute Neuts (auto) 9.4 H, Absolute Lymphs (auto) 0.51 L, Nucleated RBC % 0, PT 15.3 H, INR 1.2, APTT 27.9, Sodium 140, Potassium 4.0, Chloride 104, Carbon Dioxide 23.7, Anion Gap 13, BUN 28 H, Creatinine 1.86 H, Estim Creat Clear Calc 43.92 L, Est GFR (MDRD) Non-Af 36 L, BUN/Creatinine Ratio 15.2, Glucose 189 H, Lactic Acid 2.3 H*, Calcium 8.5, Magnesium 1.5, Total Bilirubin 0.75, AST 28, ALT 33, Alkaline Phosphatase 93, Total Protein 6.2, Albumin 3.4, Globulin 2.8, Albumin/Globulin Ratio 1.2, Triglycerides 269 H, Cholesterol 121, LDL Cholesterol, Calc 41, VLDL Cholesterol 54 H, HDL Cholesterol 26 L, Cholesterol/HDL Ratio 4.58, Lipase 35, TSH 1.840 10/22/24 05:14: Lactic Acid 1.7 10/22/24 14:20: Urine Color Yellow, Urine Clarity Clear, Urine pH 6.5, Ur Specific [place] 1.010, Urine Protein 30 H, Urine Glucose (UA) Normal, Urine Ketones Negative, Urine Occult Blood 10 H, Urine Nitrite Negative, Urine Bilirubin Negative, Urine Urobilinogen 4 H, Ur Leukocyte Esterase Negative, Urine RBC 0 SEEN, Urine WBC 0 SEEN, Ur Squamous Epith Cells 0-5 SEEN, Urine Bacteria 0 SEEN, Urine Mucus 0 SEEN Rhythm Strip Rhythm Strip: Sinus Rhythm Rate: 70 Ectopy: PAC(s) Imaging Radiology Impression Chest X-Ray 10/22/24 00:48 IMPRESSION: No evidence for acute abnormality. Reading Location: [facility] Abdomen/Pelvis CT 10/22/24 04:02 IMPRESSION: Unchanged benign chronic calcified 1.8 cm lesion in the anterior mediastinum. Small sliding hiatal hernia. Diffuse thickening of the stomach suggestive of gastritis. Mild hepatic steatosis. CBD stent is noted. Pneumobilia is noted. Unchanged multiple cystic lesions of the pancreatic tail. Scattered right renal simple cysts are noted with the largest measuring 3.5 cm. Uncomplicated colonic diverticulosis. Unremarkable metallic prosthesis of the right hip. Mild diffuse spondylosis. Unchanged mild chronic compression deformity of T11 vertebral body. Decreased diffuse thickening of the gallbladder. Reading Location: [facility] MRCP 10/22/24 04:47 IMPRESSION: There is a stent present in the common bile duct. Trace amount of air is visible within the gallbladder, secondary to instrumentation. There are multiple simple cysts in the tail of the pancreas with the largest measuring 3.6 x 2.6 cm. Right renal cysts are noted with the largest partly visible at the end lower pole measuring 3.2 cm. Reading Location: [facility] Assessment & Plan Assessment/Plan (1) Fever: QUALIFIERS: Fever type: unspecified Qualified Code(s): R50.9 - Fever, unspecified PLAN: Fever of unknown origin at this time. Blood cultures are pending. He is on antibiotic therapy. This could possibly be fever from coagulation effect dueto hot the biopsy forceps. It would be unusual for it to happen 15 days later after the procedure but anything is possible if we cannot determine the etiologyof his fever. He also possibly could have been experiencing acute gastroenteritis that causes fever. He had an MRCP did not show any signs of obstructive disease which were I would expect if he had a fever secondary to decreased flow in his bile duct from cholangitis. Recommend continue antibiotics for approximately 14 days with Augmentin once he gets discharged from the hospital for possible cauterization at ampullectomy site causing local fevers and possible underlying infection. Charges/Coding Visit Charges Inpatient E&M: 69136 Init Hosp L3 10/23/24 1600 <Electronically signed by Alex Sher DO> Cosigner Signature (if applicable): CC: Dr. Salvador Del Rosario MD~ Signed [facility] Work Phone: 1(674) 670-874506-25-2025 Progress note Author Marleny Tena [facility] Note Date/Time October 23, 2024 3:03 pm [facility] Medical Records Department [address] [place] [address] Progress Note - Hospitalist 10/23/24 1456 MR#: [id number] Acct: [id number] Name: IGLESIAFRANDaisy FOFANAEY Rep #:[id number] : 1945 79 From: Marleny Tena DO PCP: Dr. Salvador Del Rosario MD Status :ADM IN Location: [place] [address]-1 Reason for Visit Reason for Visit: Diagnoses Morbid (severe) obesity due to excess calories (10/22/24) Acidosis, unspecified (10/22/24) Other cholangitis (10/22/24) Obstruction of bile duct (10/22/24) Cyst of pancreas (10/22/24) Acute kidney failure, unspecified (10/22/24) Chronic kidney disease, stage 3a (10/22/24) Bilious vomiting (10/22/24) Nausea with vomiting, unspecified (10/22/24) Fever, unspecified (10/22/24) Body mass index [BMI] 40.0-44.9, adult (10/22/24) Other specified postprocedural states (10/22/24) Subjective Subjective Patient was seen and examined today, he states he feels well, he is not developed a temperature since yesterday. Blood cultures pending Objective Data Objective Data Vital Signs: Vital Signs Temp Pulse Resp BP Pulse Ox O2 Del Method 97.9 F 57 L 16 131/58 H 93 Room Air 10/23/24 08:50 10/23/24 08:50 10/23/24 08:50 10/23/24 08:50 10/23/24 08:50 10/23/24 08:50 Oxygen Delivery Method Room Air Weight: 135.6 kg Body Mass Index (BMI) 42.7 Intake & Output: Intake and Output for Last 24 Hours 10/21/24 10/22/24 10/23/24 23:59 23:59 23:59 Intake Total 0 / 0 1700 / 1700 1200 / 1200 Output Total 250 / 250 Balance 0 / 0 1450 / 1450 1200 / 1200 Lab / Micro Data 10/23/24 05:33 10/23/24 05:33 Labs: Laboratory Results - last 24 hr 10/22/24 14:20: Urine Color Yellow, Urine Clarity Clear, Urine pH 6.5, Ur Specific [place] 1.010, Urine Protein 30 H, Urine Glucose (UA) Normal, Urine Ketones Negative, Urine Occult Blood 10 H, Urine Nitrite Negative, Urine Bilirubin Negative, Urine Urobilinogen 4 H, Ur Leukocyte Esterase Negative, Urine RBC 0 SEEN, Urine WBC 0 SEEN, Ur Squamous Epith Cells 0-5 SEEN, Urine Bacteria 0 SEEN, Urine Mucus 0 SEEN 10/23/24 05:33: WBC 9.9, RBC 4.26 L, Hgb 13.6, Hct 40.8, MCV 95.8 H, MCH 31.9, MCHC 33.3, RDW Std Deviation 47.3 H, RDW Coeff of Gisella 13.4, Plt Count 178, MPV 9.4, Immature Gran % (Auto) 0.500, Neut % (Auto) 71.7 H, Lymph % (Auto) 17.6 L, [place] % (Auto) 9.8, Eos % (Auto) 0.2, Baso % (Auto) 0.2, Absolute Neuts (auto) 7.1, Absolute Lymphs (auto) 1.75, Nucleated RBC % 0, Sodium 140, Potassium 4.2, Chloride 105, Carbon Dioxide 24.0, Anion Gap 11, BUN 21 H, Creatinine 1.78 H, Estim Creat Clear Calc 45.90 L, Est GFR (MDRD) Non-Af 38 L, BUN/Creatinine Ratio 11.9, Glucose 125 H, Calcium 7.9, Total Bilirubin 0.89, AST 29, ALT 30, Alkaline Phosphatase 79, Total Protein 5.9, Albumin 3.3 L, Globulin 2.7, Albumin/Globulin Ratio 1.2 Rhythm Strip Rhythm Strip: Sinus Rhythm Rate: 70 Ectopy: PAC(s) Physical Exam Const alert, oriented x3 and no apparent distress Constitutional Narrative: Patient has class III obesity General Appearance: cooperative, well kempt and well developed Orientation / Consciousness: awake, oriented to person, oriented to place and oriented to time HEENT normocephalic, head/scalp atraumatic and moist oral mucous membranes Head and Scalp: normocephalic Eyes PERRL, EOMs intact bilaterally and conjunctivae normal Neck supple, no JVD, thyroid normal and no carotid bruits General: trachea midline Resp normal respiratory effort, no retractions, no use of accessory muscles and clear to auscultation bilaterally Auscultation: Negative for rales, rhonchi or wheezes Cardio regular rate, regular rhythm, S1 normal heart sound, S2 normal heart sound, no murmurs, no rub and no gallops GI normal to inspection, nondistended, normoactive bowel sounds, soft to palpation, non-tender and non-distended Extremity no clubbing, cyanosis or edema Skin no rashes or lesions noted General Skin Exam: no breakdown Neuro oriented x3, CN's II-XII intact bilaterally, moves all extremities, no focal motor deficits and no sensory deficits noted Sensorium / Orientation: awake and alert Speech: speech normal Psych affect normal Assessment & Plan Assessment/Plan (1) Cholangitis: PLAN: Plan 1. Fever of unknown origin-on admission, the patient was suspected of having cholangitis, this has not been proven, it may be possible for the patient to be discharged home on a total of 5 days of antibiotics, blood culture has not resulted as of yet but the patient peers nontoxic today and states he feels good. #2 nausea and vomiting-etiology unclear, symptoms have resolved at this time #3 dehydration-I do not feel the patient has acute kidney injury, patient's creatinine has to decreased to 1.78 today. #4 chronic use of anticoagulants-patient will resume his apixaban Total clinical time spent by myself addressing the patient's medical issues, reviewing all of his data, and collaborating with patient's care team: 35 minutes Charges/Coding Visit Charges Inpatient E&M: 27349 Subs Hosp L2 10/23/24 1503 <Electronically signed by Marleny Tena DO> Cosigner Signature (if applicable): CC: ~ Signed [facility] Work Phone: 1(103) 291-915306-25-2025 Consult note [facility] Medical Records Department [address] [place] [address] Consultation - GI 10/22/24 1818 MR#: [id number] Acct: [id number] Name: FRAN PAREKH Rep #:[id number] : 1945 79 From: Alex [facility] PCP: Dr. Salvador Del Rosario MD Status :ADM IN Location: [facility] DI041-1 HPI Consult Data Date of Consult: 10/22/24 HPI Narrative Reason for Consultation: Fever HPI Narrative: FRAN PAREKH, is a 79 M who presented to the ED with nausea and vomiting for thelast hour or 2 and feeling poorly. No abdominal pain, chest pain, cough, dyspnea. He states he felt like he was sweating. He EMS was called because he felt poorly. EMS checked his temperature of 102.5, the patient did not know he had a fever prior to them checking. In the ED his white blood cell count was stable. He was noted to have a fever of up to 103 in the emergency room. Currently his fever is 100.4. His LFTs,amylase lipase have all been normal. Patient says that he has not been eating well for the past 2 days due to abdominal pain with nauseavomiting. GI history: [facility] hospitalization 03.26.24 - 03.28.24 dizziness - consulted [...] ERCP 07.04.24 Mucosal changes in the duodenum. The ampulla appeared somewhat abnormal. Biopsies were taken with a cold forceps for histology in the ampulla.Choledocholithiasis was found. Complete removal was accomplished by biliary sphincterotomy and balloon extraction. A biliary sphincterotomy was pe rformed. The biliary tree was swept. One stent was removed from the biliary tree. Duodenum, ampulla, biopsy: - Fragments of inflamed small intestinal mucosa with focal low dysplasia and reactive changes ? see Comment. - Focal granulation tissue consistent with ulceration - IHC for CMV (cytomegalovirus) is negative (performed at [facility]) - IHC for p53 is wild-type. - IHC for Ki67 is not significantly increased ERCP/EGD 25: -One 10 Fr by 5 cm temporary stent was placed 5 cm into the common bile duct. Bile flowed through the stent. The stent was in good position. A standard esophagogastroduodenoscopy scope was used for the examination of the upper gastrointestinal tract. The scope was passed under direct vision throughthe upper GI tract. Localized moderate mucosal changes characterized by scalloping were found in the ampulla. - Coagulation for destruction of remaining portion of lesion in the ampulla using hot biopsy forceps through the ERCP scope was successful. The polyp was removed with a piecemeal technique using a hot biopsy forceps. The polypectomy was performed through the ERCP scope. Resection and retrieval were complete. [facility] Medical History Carpal tunnel syndrome on both sides Cancer Wears glasses Thyroid disease Shingles Inguinal hernia Cardiology follow-up encounter History of stress test Choledocholithiasis Current use of snf 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 Elevated liver enzymes Pancreatic mass High [...] PO DAILY reduce fluid 03/26/24 10/06/24 History Held on 10/21/24. Instructions: does not think it does much levothyroxine 125 mcg tablet 125 mcg PO DAILY disorder of 03/26/24 10/06/24 History thyroid gland aspirin 81 mg tablet,delayed 81 mg PO DAILY 08/31/24 0 10/03/24 History release (Adult Aspirin Regimen) multivitamin (Daily Multi-Vitamin 1 tab PO DAILY 08/3110/06/24 History tablet) Allergy/AdvReac Type Severity Reaction Status Date / Time azithromycin (From Zithromax) Allergy Itching Verified 10/21/24 23:18 bee venom protein (honey bee) AdvReac Swelling Verified 10/21/24 23:18 venom-wasp (wasps) AdvReac Swelling Verified 10/21/24 23:18 Surgical History History of total right hip [...] rectal bleeding, tenesmus, vomiting or weight changes Physical Exam Const alert, oriented x3, no apparent distress and healthy appearing General Appearance: cooperative GI normal to inspection, nondistended, normoactive bowel sounds, soft to palpation,non-tender and non-distended Percussion: normal to percussion Rectal Exam: deferred Lab / Micro Data 10/22/24 00:35 10/22/24 00:35 Labs: Laboratory Results - last 24 hr 10/22/24 00:35: WBC 10.6, RBC 4.38 L, Hgb 13.8, Hct 41.2, MCV 94.1 H, MCH 31.5, MCHC 33.5, RDW Std Deviation 44.9 H, RDW Coeff of Gisella 13.1, Plt Count 197, MPV 9.8, Immature Gran % (Auto) 0.500, Neut % (Auto) 88.6 H, Lymph % (Auto) 4.8 L, [place] % (Auto) 5.8, Eos % (Auto) 0.1, Baso % (Auto) 0.2, Absolute Neuts (auto) 9.4 H, Absolute Lymphs (auto) 0.51 L, Nucleated RBC % 0, PT 15.3 H, INR 1.2, APTT 27.9, Sodium 140, Potassium 4.0, Chloride 104, Carbon Dioxide 23.7, Anion Gap 13, BUN 28 H, Creatinine 1.86 H, Estim Creat Clear Calc 43.92 L, Est GFR (MDRD) Non-Af 36 L, BUN/Creatinine Ratio 15.2, Glucose 189 H, Lactic Acid 2.3 H*, Calcium 8.5, Magnesium 1.5, Total Bilirubin 0.75, AST 28, ALT 33, Alkaline Phosphatase 93, Total Protein 6.2, Albumin 3.4, Globulin 2.8, Albumin/Globulin Ratio 1.2, Triglycerides 269 H, Cholesterol 121, LDL Cholesterol, Calc 41, VLDL Cholesterol 54 H, HDL Cholesterol 26 L, Cholesterol/HDL Ratio 4.58, Lipase 35, TSH 1.840 10/22/24 05:14: Lactic Acid 1.7 10/22/24 14:20: Urine Color Yellow, Urine Clarity Clear, Urine pH 6.5, Ur Specific [place] 1.010, Urine Protein 30 H, Urine Glucose (UA) Normal, Urine Ketones Negative, Urine Occult Blood 10 H, UrineNitrite Negative, Urine Bilirubin Negative, Urine Urobilinogen 4 H, Ur Leukocyte Esterase Negative,Urine RBC 0 SEEN, Urine WBC 0 SEEN, Ur Squamous Epith Cells 0-5 SEEN, Urine Bacteria 0 SEEN, Urine Mucus 0 SEEN Rhythm Strip Rhythm Strip: Sinus Rhythm Rate: 70 Ectopy: PAC(s) Imaging Radiology Impression Chest X-Ray 10/22/24 00:48 IMPRESSION: No evidence for acute abnormality. Reading Location: [facility] Abdomen/Pelvis CT 10/22/24 04:02 IMPRESSION: Unchanged benign chronic calcified 1.8 cm lesion in the anterior mediastinum. Small sliding hiatal hernia. Diffuse thickening of the stomach suggestive of gastritis. Mild hepatic steatosis. CBD stent is noted. Pneumobilia is noted. Unchanged multiple cystic lesions of the pancreatic tail. Scattered right renal simple cysts are noted with the largest measuring 3.5 cm. Uncomplicated colonic diverticulosis. Unremarkable metallic prosthesis of the right hip. Mild diffuse spondylosis. Unchanged mild chronic compression deformity of T11 vertebral body. Decreased diffuse thickening of the gallbladder. Reading Location: [facility] MRCP 10/22/24 04:47 IMPRESSION: There is a stent present in the common bile duct. Trace amount of air is visible within the gallbladder, secondary to instrumentation. There are multiple simple cysts in the tail of the pancreas with the largest measuring 3.6 x 2.6 cm. Right renal cysts are noted with the largest partly visible at the end lower pole measuring 3.2 cm. Reading Location: [facility] Assessment & Plan Assessment/Plan (1) Fever: QUALIFIERS: Fever type: unspecified Qualified Code(s): R50.9 - Fever, unspecified PLAN: Fever of unknown origin at this time. Blood cultures are pending. He is on antibiotic therapy. This could possibly be fever from coagulation effect dueto hot the biopsy forceps. It would be unusual for it to happen 15 days later after the procedure but anything is possible if we cannot determine the etiologyof his fever. He also possibly could have been experiencing acute gastroenteritis that causes fever. He had an MRCP did not show any signs of obstructive disease which were I would expect if he had a fever secondary to decreased flow in his bile duct from cholangitis. Recommend continue antibiotics for approximately 14 days with Augmentin once he gets discharged from the hospital for possible cauterization at ampullectomy site causing local fevers and possible underlying infection. Charges/Coding Visit Charges Inpatient E&M: 31516 Init Hosp L3 10/23/24 1600 Cosigner Signature (if applicable): CC: Dr. Salvador Del Rosario MD~ Signed [facility]06-25-[address] [facility] Medical Records Department [address] [place] [address] Progress Note - Hospitalist 10/23/24 1456 MR#: [id number] Acct: [id number] Name: FRAN PAREKH Rep #:[id number] : 1945 79 From: Marleny Tena DO PCP: Dr. Salvador Del Rosario MD Status :ADM IN Location: [facility] QH196-4 Reason for Visit Reason for Visit: Diagnoses Morbid (severe) obesity due to excess calories (10/22/24) Acidosis, unspecified (10/22/24) Other cholangitis (10/22/24) Obstruction of bile duct (10/22/24) Cyst of pancreas (10/22/24) Acute kidney failure, unspecified (10/22/24) Chronic kidney disease, stage 3a (10/22/24) Bilious vomiting (10/22/24) Nausea with vomiting, unspecified (10/22/24) Fever, unspecified (10/22/24) Body mass index [BMI] 40.0-44.9, adult (10/22/24) Other specified postprocedural states (10/22/24) Subjective Subjective Patient was seen and examined today, he states he feels well, he is not developed a temperature since yesterday. Blood cultures pending Objective Data Objective Data Vital Signs: Vital Signs Temp Pulse Resp BP Pulse Ox O2 Del Method 97.9 F 57 L 16 131/58 H 93 Room Air 10/23/24 08:50 10/23/24 08:50 10/23/24 08:50 10/23/24 08:50 10/23/24 08:50 10/23/24 08:50 Oxygen Delivery Method Room Air Weight: 135.6 kg Body Mass Index (BMI) 42.7 Intake & Output: Intake and Output for Last 24 Hours 10/21/24 10/22/24 10/23/24 23:59 23:59 23:59 Intake Total 0 / 0 1700 / 1700 1200 / 1200 Output Total 250 / 250 Balance 0 / 0 1450 / 1450 1200 / 1200 Lab / Micro Data 10/23/24 05:33 10/23/24 05:33 Labs: Laboratory Results - last 24 hr 10/22/24 14:20: Urine Color Yellow, Urine Clarity Clear, Urine pH 6.5, Ur Specific [place] 1.010, Urine Protein 30 H, Urine Glucose (UA) Normal, Urine Ketones Negative, Urine Occult Blood 10 H, UrineNitrite Negative, Urine Bilirubin Negative, Urine Urobilinogen 4 H, Ur Leukocyte Esterase Negative,Urine RBC 0 SEEN, Urine WBC 0 SEEN, Ur Squamous Epith Cells 0-5 SEEN, Urine Bacteria 0 SEEN, Urine Mucus 0 SEEN 10/23/24 05:33: WBC 9.9, RBC 4.26 L, Hgb 13.6, Hct 40.8, MCV 95.8 H, MCH 31.9, MCHC 33.3, RDW Std Deviation 47.3 H, RDW Coeff of Gisella 13.4, Plt Count 178, MPV 9.4, Immature Gran % (Auto) 0.500, Neut %(Auto) 71.7 H, Lymph % (Auto) 17.6 L, Cherokee % (Auto) 9.8, Eos % (Auto) 0.2, Baso % (Auto) 0.2, Absolute Neuts (auto) 7.1, Absolute Lymphs (auto) 1.75, Nucleated RBC % 0, Sodium 140, Potassium 4.2, Chloride 105, Carbon Dioxide 24.0, Anion Gap 11, BUN 21 H, Creatinine 1.78 H, Estim Creat Clear Calc 45.90 L, Est GFR (MDRD) Non-Af 38 L, BUN/Creatinine Ratio 11.9, Glucose 125 H, Calcium 7.9, Total Bilirubin 0.89, AST 29, ALT 30, Alkaline Phosphatase 79, Total Protein 5.9, Albumin 3.3 L, Globulin 2.7, Albumin/Globulin Ratio 1.2 Rhythm Strip Rhythm Strip: Sinus Rhythm Rate: 70 Ectopy: PAC(s) Physical Exam Const alert, oriented x3 and no apparent distress Constitutional Narrative: Patient has class III obesity General Appearance: cooperative, well kempt and well developed Orientation / Consciousness: awake, oriented to person, oriented to place and oriented to time HEENT normocephalic, head/scalp atraumatic and moist oral mucous membranes Head and Scalp: normocephalic Eyes PERRL, EOMs intact bilaterally and conjunctivae normal Neck supple, no JVD, thyroid normal and no carotid bruits General: trachea midline Resp normal respiratory effort, no retractions, no use of accessory muscles and clear to auscultation bilaterally Auscultation: Negative for rales, rhonchi or wheezes Cardio regular rate, regular rhythm, S1 normal heart sound, S2 normal heart sound, no murmurs, no rub and no gallops GI normal to inspection, nondistended, normoactive bowel sounds, soft to palpation, non-tender and non-distended Extremity no clubbing, cyanosis or edema Skin no rashes or lesions noted General Skin Exam: no breakdown Neuro oriented x3, CN's II-XII intact bilaterally, moves all extremities, no focal motor deficits and no sensory deficits noted Sensorium / Orientation: awake and alert Speech: speech normal Psych affect normal Assessment & Plan Assessment/Plan (1) Cholangitis: PLAN: Plan 1. Fever of unknown origin-on admission, the patient was suspected of having cholangitis, this has not been proven, it may be possible for the patient to be discharged home on a total of 5 days of antibiotics, blood culture has not resulted as of yet but the patient peers nontoxic today and states he feels good. #2 nausea and vomiting-etiology unclear, symptoms have resolved at this time #3 dehydration-I do not feel the patient has acute kidney injury, patient's creatinine has to decreased to 1.78 today. #4 chronic use of anticoagulants-patient will resume his apixaban Total clinical time spent by myself addressing the patient's medical issues, reviewing all of his data, and collaborating with patient's care team: 35 minutes Charges/Coding Visit Charges Inpatient E&M: 26473 Subs Hosp L2 10/23/24 1503 Cosigner Signature (if applicable): CC: ~ Signed [facility]06-24-2025 Progress note Author Marleny Tena [facility] Note Date/Time October 22, 2024 6:35 pm [facility] Medical Records Department [address] [place] [address] Progress Note - Hospitalist 10/22/241828 MR#: [id number] Acct: [id number] Name: FRAN PAREKH Rep #:[id number] : 1945 79 From: Marleny Tena DO PCP: Dr. Salvador Del Rosario MD Status :ADM IN Location: [place] [address] Hospitalist Note Patient was seen and examined today, I discussed his care with gastroenterology,patient has been afebrile during the day today, his MRCP did not show any significant abnormality that would account for why he is running a temperature. Patient complains of some mild abdominal pain today. I feel the best course of action would be to keep the patient on antibiotics for now and await his blood culture results, if these are negative, antibiotics may be stopped. 10/22/241834 <Electronically signed by Marleny Tena DO> Cosigner Signature (if applicable): CC: ~ Signed [facility] Work Phone: [phone]) 141-256606-24-2025 Progress note [facility] Medical Records Department [address] [place] [address] Progress Note - Hospitalist 10/22/241828 MR#: [id number] Acct: [id number] Name: FRAN PAREKH Rep #:[id number] : 1945 79 From: Marleny Tena DO PCP: Dr. Salvador Del Rosario MD Status :ADM IN [facility] Note Patient was seen and examined today, I discussed his care with gastroenterology,patient has been afebrile during the day today, his MRCP did not show any significant abnormality that would account for why he is running a temperature. Patient complains of some mild abdominal pain today. I feel the course of action would be to keep the patient on antibiotics for now and await his blood cultureresults, if these are negative, antibiotics may be stopped. 10/22/241834 Cosigner Signature (if applicable): CC: ~ Signed [facility]06-24-2025 History and physical note Author Werner Shin [facility] Note Date/Time October 22, 2024 6:[address] [facility] Medical Records Department [address] [place] [address] H&P Exam - Hospitalist 10/22/24 0359 MR#: [id number] Acct: [id number] Name: FRAN PAREKH Rep #:[id number] : 1945 79 From: Werner Castañeda DO PCP: Dr. Salvador Del Rosario MD Status :ADM IN [facility] HPI - General General Date of Admission: 10/22/24 Date of Service: 10/22/24 Chief Complaint: Fever, Nausea and Vomiting. HPI Narrative FRAN PAREKH, is a 79 M with a past medical history of essential hypertension; on metoprolol and lisinopril, hyperlipidemia; on atorvastatin, hypothyroidism; on levothyroxine, morbid obesity; with BMI of 42.9 this admission, history of saddle PE; on apixaban, CKD; stage IIIa, neuropathy; on gabapentin, history of shingles (2023), history of inguinal hernia (~2014), history of colonic diverticulosis, bilateral CTS; s/p release, OA; s/p Right THR plus sciatica and history of admission here from March 26, 2020 for 2 March 28, 2024 for treatment of nausea, vomiting and abdominal pain with ~6 cm cystic lesion in thepancreatic tail on CT with suspected pancreatitis, transaminitis and hyperbilirubinemia of 4 mg/dL due to cholestatic hepatitis with patient ultimately diagnosed with choledocholithiasis without cholangitis, cholecystitisor obstruction with subsequent biliary stent placement after pancreatic and biliary sphincterotomy with balloon extraction by Dr. 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 Mr. Parekh reports his symptoms began ~2 hours prior to arrival and he began to feel poorly followed by nausea and bilious emesis. He then activated EMS whonoted temperature of 102.5 ?F. He states he had similar symptoms in the past that were attributed to his cystic pancreatic lesion that required ERCP with stent placement. However, on this occasion he denies abdominal pain. He also denies blood in stools, blood in vomitus, runny nose, sore throat, ear pain, chest pain, palpitations, heart racing, cough, shortness of breath, dysuria, hematuria, back pain headache or rash. In the ER he was noted to have Lactic Acidosis of 2.3 mmol/L present on admission with additional laboratory evidence of possible ROSSANA; with elevated serum creatinine of 1.86 mg/dL (up from his baseline of 1.46 mg/dL last admission). The ER physician then spoke to Dr. Sher of gastroenterology who recommended admission out of concern for the possibility of early cholangitis with additional recommendation patient be treated with empiric antibiotics and admitted to the hospitalist service for ongoing care for stay that is expected to extend beyond 2 midnights [facility] Medical History Carpal tunnel syndrome on both sides Cancer Wears glasses Thyroid disease Shingles Inguinal hernia Cardiology follow-up encounter History of stress test Choledocholithiasis Current use of piece marker small arms 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 Elevated liver enzymes Pancreatic mass High [...] PO DAILY reduce fluid 03/26/24 10/06/24 History Held on 10/21/24. Instructions: does not think it does much levothyroxine 125 mcg tablet 125 mcg PO DAILY disorder of 03/26/24 10/06/24 History thyroid gland aspirin 81 mg tablet,delayed 81 mg PO DAILY 08/31/24 0 10/03/24 History release (Adult Aspirin Regimen) multivitamin (Daily Multi-Vitamin 1 tab PO DAILY 08/3110/06/24 History tablet) Allergy/AdvReac Type Severity Reaction Status Date / Time azithromycin (From Zithromax) Allergy Itching Verified 10/21/24 23:18 bee venom protein (honey bee) AdvReac Swelling Verified 10/21/24 23:18 venom-wasp (wasps) AdvReac Swelling Verified 10/21/24 23:18 Surgical History History of total right hip arthroplasty S/P carpal tunnel release History of tonsillectomy History of ERCP Social History Smoking Status: Never smoker ROS ROS Narrative Review of Systems: Constitutional: Patient admits to fever but he denies chills. Eyes: Patient denies changes in vision or discharge from eyes. ENT: Patient denies runny nose, sore throat or ear pain. Resp: Patient denies shortness of breath or cough. GI: Patient admits to nausea and vomiting with bilious emesis as per HPI. He denies abdominal pain. : Patient denies dysuria, hematuria or urinary frequency. MSK: Patient denies arthralgias or myalgias. Skin: Patient denies rash, abscess, wounds or jaundice. Psych: Patient denies symptoms uncontrolled depression or anxiety. Neuro: Patient denies headache, paresthesias or focal neurologic deficits. Allergy: Patient denies lip swelling, tongue swelling or urticaria. Hematology: Patient denies easy bleeding or easy bruisability. Endocrinology: Patient denies polyuria, polydipsia or polyphagia. 14 point ROS otherwise negative save for positives noted above in HPI. Vital Signs Vital Signs Vital Signs: 10/21/24 23:17 10/21/24 23:17 10/21/24 23:23 Temperature 100.1 F H 100.1 F H Temperature Source Oral Oral Pulse Rate 76 75 Respiratory Rate 16 16 Respiratory Effort Normal Non-Labored Respiratory Pattern Normal Blood Pressure 116/65 116/65 Blood Pressure Mean 82 82 Pulse Ox 98 94 Oxygen Delivery Method Room Air Room Air 10/22/24 00:17 10/22/24 00:21 10/22/24 00:23 Temperature 99.2 F H 99.2 F H Temperature Source Oral Oral Pulse Rate 81 66 Respiratory Rate 16 19 H Respiratory Effort Respiratory Pattern Blood Pressure 118/65 118/65 Blood Pressure Mean 82 82 Pulse Ox 98 95 93 Oxygen Delivery Method Room Air Room Air Room Air 10/22/24 01:00 10/22/24 02:00 10/22/24 03:00 Temperature 99.1 F 98.9 F 98.6 F Temperature Source Oral Oral Oral Pulse Rate 53 L 66 58 L Respiratory Rate 16 16 16 Respiratory Effort Respiratory Pattern Blood Pressure 125/66 H 118/59 L 97/59 L Blood Pressure Mean 85 78 71 Pulse Ox 94 95 98 Oxygen Delivery Method Room Air Room Air Room Air Weight Weight: 298 lb 15.149 oz Body Mass Index (BMI) 42.9 Results Medical Records Data Attestation: I reviewed the patient's medical records Lab / Micro Data Attestation: I reviewed the patient's lab results. 10/22/24 00:35 10/22/24 00:35 Labs: Laboratory Results - last 24 hr 10/22/24 00:35: WBC 10.6, RBC 4.38 L, Hgb 13.8, Hct 41.2, MCV 94.1 H, MCH 31.5, MCHC 33.5, RDW Std Deviation 44.9 H, RDW Coeff of Gisella 13.1, Plt Count 197, MPV 9.8, Immature Gran % (Auto) 0.500, Neut % (Auto) 88.6 H, Lymph % (Auto) 4.8 L, [place] % (Auto) 5.8, Eos % (Auto) 0.1, Baso % (Auto) 0.2, Absolute Neuts (auto) 9.4 H, Absolute Lymphs (auto) 0.51 L, Nucleated RBC % 0, PT 15.3 H, INR 1.2, APTT 27.9, Sodium 140, Potassium 4.0, Chloride 104, Carbon Dioxide 23.7, Anion Gap 13, BUN 28 H, Creatinine 1.86 H, Estim Creat Clear Calc 43.92 L, Est GFR (MDRD) Non-Af 36 L, BUN/Creatinine Ratio 15.2, Glucose 189 H, Lactic Acid 2.3 H*, Calcium 8.5, Total Bilirubin 0.75, AST 28, ALT 33, Alkaline Phosphatase 93, Total Protein 6.2, Albumin 3.4, Globulin 2.8, Albumin/Globulin Ratio 1.2, [id number] Rhythm Strip Rhythm Strip: Sinus Rhythm Rate: 70 Ectopy: PAC(s) Imaging Radiology Impression Chest X-Ray 10/22/24 00:48 IMPRESSION: No evidence for acute abnormality. Reading Location: [facility] Imaging Services [address] [place] [id number] Abdomen/Pelvis W IV Cont ONLY MR#: [id number] Acct: [id number] Name: FRAN PAREKH Rep #: [id number] : 1945 M 79 From: Harsh Granger MD PCP: Dr. Salvador Del Rosario MD Status: REG ER Study: Abdomen/Pelvis W IV Cont ONLY Date of Exam: 10/22/24 Exam# [id number] Ordering Dr: Manuel Alvarez MD PROCEDURE: ABDOMEN/PELVIS W IV CONT ONLY 10/22/2024 REASON FOR EXAM: FEVER, VOMITING, RECENT BILIARY STENT TECHNIQUE: ABDOMEN/PELVIS W IV CONT ONLY Coronal and Sagittal reconstruction series were provided. CONTRAST: Isovue-350. VOLUME: 100 mL One or more dose reduction techniques were used (e.g., Automated exposure control, adjustment of the mA and/or kV according to patient size, use of iterative reconstruction technique. RADIATION DOSE SUMMARY: CTDlvol: 24.18 mGy DLP: 1381 mGycm COMPARISON: 09/20/2024. FINDINGS: Unchanged benign chronic calcified 1.8 cm lesion in the anterior mediastinum. Small sliding hiatal hernia. Diffuse thickening of the stomach suggestive of gastritis. Mild hepatic steatosis. CBD stent is noted. Pneumobilia is noted. Unchanged multiple cystic lesions of the pancreatic tail. Scattered right renal simple cysts are noted with the largest measuring 3.5 cm. Uncomplicated colonic diverticulosis. Unremarkable metallic prosthesis of the right hip. Mild diffuse spondylosis. Unchanged mild chronic compression deformity of T11 vertebral body. Decreased diffuse thickening of the gallbladder. The visualized lung bases are unremarkable. Normal extrahepatic biliary system. Normal spleen. Normal bilateral adrenal glands. Normal size of the right kidney. There is no right renal mass. There are no right renal calculi. There is no right hydronephrosis. Normal visualized right ureter. Normal size of the left kidney. There is no left renal mass. There are no leftrenal calculi. There is no left hydronephrosis. Normal visualized left ureter. Normal small intestine. The appendix is visualized and appears normal. There is no demonstrated peritoneal fluid. Calcified atheromatous plaques of the abdominal aorta. Normal inferior vena cava. Normal retroperitoneum. Normal urinary bladder. There is no pelvic mass lesion or lymphadenopathy. There is no pelvic fluid. Normal abdominal wall. CT/Abdomen/Pelvis W IV Cont ONLY IMPRESSION: Unchanged benign chronic calcified 1.8 cm lesion in the anterior mediastinum. Small sliding hiatal hernia. Diffuse thickening of the stomach suggestive of gastritis. Mild hepatic steatosis. CBD stent is noted. Pneumobilia is noted. Unchanged multiple cystic lesions of the pancreatic tail. Scattered right renal simple cysts are noted with the largest measuring 3.5 cm. Uncomplicated colonic diverticulosis. Unremarkable metallic prosthesis of the right hip. Mild diffuse spondylosis. Unchanged mild chronic compression deformity of T11 vertebral body. Decreased diffuse thickening of the gallbladder. Reading Location: [place] [address] CC: Dr. Manuel Alvarez MD; Dr. Salvador Del Rosario MD ~ Software Packager: Signed Assessment & Plan Assessment/Plan (1) Cholangitis: (2) Lactic acidosis: (3) Fever: QUALIFIERS: Fever type: unspecified Qualified Code(s): R50.9 - Fever, unspecified (4) Nausea & vomiting: QUALIFIERS: Vomiting type: bilious vomiting Qualified Code(s): R11.14 - Bilious vomiting (5) ROSSANA (acute kidney injury): (6) CKD stage 3a, GFR 45-59 ml/min: (7) History of biliary stent insertion: (8) Pancreatic cyst: (9) Biliary stricture: (10) Morbid obesity with BMI of 40.0-44.9, adult: PLAN: Plan 1. Suspected Cholangitis with Lactic Acidosis of 2.3 mmol/L present on admission - Admit to general medical floor. Continue empiric IV piperacillin-tazobactam begun in the ER and await culture and sensitivity data. Serialize lactate. Check MRCP with CT not definitive for acute pathologic changes in biliary tree. Give acetaminophen as needed for [id number] (level 1-5/10) pain or fever. Give morphine IV as needed for severe (level 6-10/10) pain. Finally, we will consult Dr. Sher of gastroenterology to see this patient on rounds in a.m. further recommendations appreciated in advance. 2. Fever, Nausea and Vomiting with bilious emesis likely due to #1 - Give ondansetron IV as needed for nausea vomiting. Give promethazine IM prn for breakthrough nausea. 3. ROSSANA; with elevated serum creatinine of 1.86 mg/dL (up from his baseline of 1.46 mg/dL last admission) in the setting of CKD; stage IIIa complicating #1 & #2 - Volume resuscitate and recheck renal indices daily to follow trend. We will avoid potentially nephrotoxic agents. 4. History of admission here from March 26, 2020 for 2 March 28, 2024 fortreatment of nausea, vomiting and abdominal pain with ~6 cm cystic lesion in thepancreatic tail on CT with suspected pancreatitis, transaminitis and hyperbilirubinemia of 4 mg/dL due to cholestatic hepatitis with patient ultimately diagnosed with choledocholithiasis without cholangitis, cholecystitisor obstruction with subsequent biliary stent placement after pancreatic and biliary sphincterotomy with balloon extraction by Dr. Sher of gastroenterologywith subsequent ERCP with stent removal on July 04, 2024 with another follow-up ERCP requiring stent replacement ~2 months ago adding to the medical complexity of #1 - #3 - Noted. 5. Morbid (Class III) Obesity; with BMI of 42.9 this admission adding to the burden of disease outlined from #1 - #4 - Weight loss are recommended. Check TSH. This complicates his case and may hamper recovery. 6. History of saddle PE; on apixaban - Hold apixaban with possible impending repeat ERCP. 7. 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 8. Essential hypertension; on metoprolol and lisinopril - Hold oral antihypertensives. Give IV hydralazine prn for systolic blood pressure > 160 mmHg. 9. Hyperlipidemia; on atorvastatin - Restart statin when patient is cleared fororal intake. Check Lipid Profile. 10. Hypothyroidism; on levothyroxine - Restart levothyroxine when patient can tolerate oral intake and check TSH. 11. Neuropathy; on gabapentin - Stable. 12. History of shingles (2023) - Noted with no signs of recurrence at this time. 13. History of inguinal hernia (~2014) - Noted. 14. History of colonic diverticulosis - Noted. 15. Bilateral CTS; s/p release - Noted. 16. OA; s/p Right THR plus sciatica - Stable. We will follow pain regimen scales outlined in #1. 17. DVT/GI prophylaxis - SCD's only with possible impending procedure. Pantoprazole 40 mg IV daily. Total time: Approximately (but not less than) 75 minutes. Charges/Coding Visit Charges Inpatient E&M: 72473 Init Hosp L3 10/22/24 0692 <Electronically signed by Werner Nunn DO> Cosigner Signature (if applicable): CC: Dr. Salvador Del Rosario MD; Dr. Werner Nunn, DO~ Signed [facility] Work Phone: [phone] 127-613706-24-2025 Telephone encounter Note* Telephone Encounter - Kulwinder Whelan RN - 10/22/2024 8:36 AM EDT Marquita from [facility] patient floor calling as she states pt was admitted there this morning for chlangitis, lactic acidosis, nausea & vomiting and ROSSANA. Asking for a copy of pt's current med list to befaxed to them at [phone]. Med list copied and faxed as requested. [facility]06-24-2025 Miscellaneous Notes* Telephone Encounter - Kulwinder Whelan RN - 10/22/2024 8:36 AM EDT Marquita from [facility] patient floor calling as she states pt was admitted there this morning for chlangitis, lactic acidosis, nausea & vomiting and ROSSANA. Asking for a copy of pt's current med list to befaxed to them at [phone]. Med list copied and faxed as requested. [facility] Discharge summary Author Manuel Alvarez [facility] Note Date/Time October 22, 2024 5:[address] [facility] Medical Records Department [address] [place] [address] Emergency Department Summary 10/22/24 MR#: [id number] Acct: [id number] Name: IGLESIAFRAN ALBERTO Rep #:[id number] : 1945 79 From: Manuel Alvarez MD PCP: Dr. Salvador Del Rosario MD Status :REG ER Location: ED HPI History of Present Illness Chief Complaint: General Illness Informant: patient Narrative Narrative: 79-year-old male presents with nausea and vomiting for the last hour or 2 and feeling poorly. No abdominal pain, chest pain, cough, dyspnea. He states he felt like he was sweating. EMS was called because he felt poorly. EMS checked his temperature of 102.5, the patient did not know he had a fever prior to them checking. He states these symptoms he had in the past when he had biliary issues. He states in March he had an ERCP with biliary stent, stent was removed and then he had another ERCP 1.5-2 months ago, and the stent was placed back [facility]. [facility] Medical History Carpal tunnel syndrome on both sides Cancer Wears glasses Thyroid disease Shingles Inguinal hernia Cardiology follow-up encounter History of stress test Choledocholithiasis Current use of piece marker small arms 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 Elevated liver enzymes Pancreatic mass High [...] PO DAILY reduce fluid 03/26/24 10/06/24 History Held on 10/21/24. Instructions: does not think it does much levothyroxine 125 mcg tablet 125 mcg PO DAILY disorder of 03/26/24 10/06/24 History thyroid gland aspirin 81 mg tablet,delayed 81 mg PO DAILY 08/31/24 0 10/03/24 History release (Adult Aspirin Regimen) multivitamin (Daily Multi-Vitamin 1 tab PO DAILY 08/3110/06/24 History tablet) Allergy/AdvReac Type Severity Reaction Status Date / Time azithromycin (From Zithromax) Allergy Itching Verified 10/21/24 23:18 bee venom protein (honey bee) AdvReac Swelling Verified 10/21/24 23:18 venom-wasp (wasps) AdvReac Swelling Verified 10/21/24 23:18 Surgical History History of total right hip arthroplasty S/P carpal tunnel release History of tonsillectomy History of ERCP Social History Smoking Status: Never smoker ROS ROS ED Constitutional Constitutional ED: Reports fever(s), malaise and sweats; Denies chills Eyes Eyes: Denies change in vision or diplopia ENT ENT ED: Denies rhinorrhea or sore throat Cardiovascular Cardiovascular: Denies chest pain or palpitations Respiratory/Chest Respiratory/Chest: Denies cough or dyspnea Gastrointestinal Gastrointestinal: Reports nausea and vomiting; Denies abdominal pain, diarrhea, hematemesis or melena Genitourinary Genitourinary ED: Denies dysuria or hematuria Musculoskeletal Musculoskeletal: Denies back pain or neck pain Integumentary Denies abscess or rash Neurologic Neurologic: Denies headache(s), paresthesias or weakness Psychiatric Psychiatric: Denies anxiety or suicidal thoughts EXAM Physical Exam Const Vital Signs: 10/21/24 23:17 10/21/24 23:17 10/21/24 23:23 Temperature 100.1 F H 100.1 F H Temperature Source Oral Oral Pulse Rate 76 75 Respiratory Rate 16 16 Respiratory Effort Normal Non-Labored Respiratory Pattern Normal Blood Pressure 116/65 116/65 Blood Pressure Mean 82 82 Pulse Ox 98 94 Oxygen Delivery Method Room Air Room Air 10/22/24 00:17 10/22/24 00:21 10/22/24 00:23 Temperature 99.2 F H 99.2 F H Temperature Source Oral Oral Pulse Rate 81 66 Respiratory Rate 16 19 H Respiratory Effort Respiratory Pattern Blood Pressure 118/65 118/65 Blood Pressure Mean 82 82 Pulse Ox 98 95 93 Oxygen Delivery Method Room Air Room Air Room Air 10/22/24 01:00 10/22/24 02:00 10/22/24 03:00 Temperature 99.1 F 98.9 F 98.6 F Temperature Source Oral Oral Oral Pulse Rate 53 L 66 58 L Respiratory Rate 16 16 16 Respiratory Effort Respiratory Pattern Blood Pressure 125/66 H 118/59 L 97/59 L Blood Pressure Mean 85 78 71 Pulse Ox 94 95 98 Oxygen Delivery Method Room Air Room Air Room Air 10/22/24 04:00 10/22/24 04:03 Temperature 98.6 F 98.6 F Temperature Source Oral Pulse Rate 60 60 Respiratory Rate 15 15 Respiratory Effort Respiratory Pattern Blood Pressure 100/59 L 100/59 L Blood Pressure Mean 72 72 Pulse Ox 97 97 Oxygen Delivery Method Room Air Positive well nourished, well developed and obese General Appearance ED: well developed and NAD Nutritional Appearance: obese HEENT Reports moist mucous membranes normocephalic and atraumatic Eyes PERRL and EOMs intact bilaterally Neck full ROM and supple Resp normal respiratory effort and clear to auscultation bilaterally Cardio regular rate, regular rhythm and no murmurs Rate: Negative for tachycardic GI non-tender and non-distended Auscultation: normoactive bowel sounds Palpation: soft Back/Spine no CVA tenderness General Back: other FROM Extremity normal to inspection General Extremety ED: Yes edema; Negative for pulses abnormal or tenderness General Extremity: edema bilateral lower extremity Details: moderate (Symmetric,with changes of chronic stasis dermatitis bilaterally. Nontender. All compartments soft and nondistended.); Negative for pulses abnormal Neuro oriented x3, CN's II-XII intact bilaterally and no sensory deficits noted Sensorium / Orientation: awake and alert Motor Exam: strength 5/5 throughout Psych mental status grossly normal Skin no rashes or lesions noted and no wounds MDM MDM MDM Narrative Medical decision making narrative: Septic workup was obtained, searching for possible source for his infection as well. Two-view chest x-ray my interpretation negative for pneumonia, he was notable to give us urine as he accidentally spilled it when attempting to provide specimen but he has had no urinary symptoms or flank pain/CVA tenderness to suggest pyelonephritis. He had a true fever per EMS, 100.1 here in the ER and after Tylenol 98.6. Feeling better after IV fluids and Zofran. His abdomen is benign. He has a borderline white blood count with a left shift although there are no bands, and his liver enzymes are reassuringly normal although he had a total bilirubin of 0.8 in August when he had choledocholithiasis on ERCP. I discussed with Dr. Sher. He suggest out of concern for the possibility of early cholangitis since we do not have an alternative source at this time to treat him empirically with IV antibiotics and admit him and he would consult. Discussed with hospitalist as well, who requested a CT of the abdomen/pelvis be performed. This was done as requested. I reviewed the images and the report which I agree with. Nothing acute. Chronic abnormalities grossly unchanged. Presence of pneumobilia which can be present with biliary stent placement and isnot necessarily specific cholangitis. History & Record Review Additional record(s) reviewed:: Prior outpatient record (ERCP 08/2024: Choledocholithiasis, stones removed stent placed, ampulla of Vater lesion biopsied which was negative for malignancy) Lab Data Attestation: I reviewed the patient's lab results. Labs: Laboratory Results - last 24 hr 10/22/24 00:35 WBC 10.6 RBC 4.38 L Hgb 13.8 Hct 41.2 MCV 94.1 H MCH 31.5 MCHC 33.5 RDW Std Deviation 44.9 H RDW Coeff of Gisella 13.1 Plt Count 197 MPV 9.8 Immature Gran % (Auto) 0.500 Neut % (Auto) 88.6 H Lymph % (Auto) 4.8 L [place] % (Auto) 5.8 Eos % (Auto) 0.1 Baso % (Auto) 0.2 Absolute Neuts (auto) 9.4 H Absolute Lymphs (auto) 0.51 L Nucleated RBC % 0 PT 15.3 H INR 1.2 APTT 27.9 Sodium 140 Potassium 4.0 Chloride 104 Carbon Dioxide 23.7 Anion Gap 13 BUN 28 H Creatinine 1.86 H Estim Creat Clear Calc 43.92 L Est GFR (MDRD) Non-Af 36 L BUN/Creatinine Ratio 15.2 Glucose 189 H Lactic Acid 2.3 H* Calcium 8.5 Total Bilirubin 0.75 AST 28 ALT 33 Alkaline Phosphatase 93 Total Protein 6.2 Albumin 3.4 Globulin 2.8 Albumin/Globulin Ratio 1.2 Lipase 35 Radiography Diagnostic Testing: Clinical Impression(s) from Imaging Studies Chest X-Ray 10/22/24 00:48 IMPRESSION: No evidence for acute abnormality. Reading Location: [id number] Abdomen/Pelvis CT 10/22/24 04:02 IMPRESSION: Unchanged benign chronic calcified 1.8 cm lesion in the anterior mediastinum. Small sliding hiatal hernia. Diffuse thickening of the stomach suggestive of gastritis. Mild hepatic steatosis. CBD stent is noted. Pneumobilia is noted. Unchanged multiple cystic lesions of the pancreatic tail. Scattered right renal simple cysts are noted with the largest measuring 3.5 cm. Uncomplicated colonic diverticulosis. Unremarkable metallic prosthesis of the right hip. Mild diffuse spondylosis. Unchanged mild chronic compression deformity of T11 vertebral body. Decreased diffuse thickening of the gallbladder. Reading Location: [place] [address] Rhythm Strip Rhythm Strip: Sinus Rhythm Rate: 70 Ectopy: PAC(s) EKG Initial EKG: Attestation: I personally reviewed and interpreted this EKG as follows: Interpretation: Sinus Rhythm and No Acute Injury Pattern Management Discussion w/another healthcare provider: Hospitalist and Laser Technician (GI Dr. Sher) Discharge Plan Dx/Rx/DC Orders Clinical Impression: Fever, Vomiting, History of biliary stent insertion Disposition Disposition: Acute Care Hospital [facility] What to do if you have Problems For any increased pain, shortness of breath, bleeding, nausea or vomiting, chestpain, or any unexpected problems, contact your Primary Care Provider. Call [facility] ([phone]) or report to the closest Emergency Room. Call 911 if necessary. 10/22/24 0502 <Electronically signed by Manuel Alvarez MD> Cosigner Signature (if applicable): CC: Dr. Salvador Del Rosario MD ~ Signed [facility] Work Phone: [phone] 794-800006-24-[address] [facility] Medical Records Department [address] [place] [id number] H&P Exam - Hospitalist 10/22/24 0359 MR#: [id number] Acct: [id number] Name: FRAN PAREKH Rep #:[id number] : 1945 79 From: Werner Castañeda DO PCP: Dr. Salvador Del Rosario MD Status :ADM IN Location: NE3 [id number] HPI - General General Date of Admission: 10/22/24 Date of Service: 10/22/24 Chief Complaint: Fever, Nausea and Vomiting. HPI Narrative FRAN PAREKH, is a 79 M with a past medical history of essential hypertension; on metoprolol and lisinopril, hyperlipidemia; on atorvastatin, hypothyroidism; on levothyroxine, morbid obesity; with BMI of 42.9 this admission, history of saddle PE; on apixaban, CKD; stage IIIa, neuropathy; on gabapentin, history of shingles (2023), history of inguinal hernia (~2014), history of colonic diverticulosis, bilateral CTS; s/p release, OA; s/p Right THR plus sciatica and history of admission here from March 26, 2020 for 2 March 28, 2024 for treatment of nausea, vomiting and abdominal pain with ~6 cm cystic lesion in thepancreatic tail on CT with suspected pancreatitis, transaminitis and hyperbi lirubinemia of 4 mg/dL due to cholestatic hepatitis with patient ultimately diagnosed with choledocholithiasis without cholangitis, cholecystitisor obstruction with subsequent biliary stent placementafter pancreatic and biliary sphincterotomy with balloon extraction by Dr. 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 Mr. Parekh reports his symptoms began ~2 hours prior to arrival and he began to feel poorly followed by nausea and bilious emesis. He then activated EMS whonoted temperature of 102.5 ?F. He states he had similar symptoms in the past that were attributed to his cystic pancreatic lesion that required ERCP with stent placement. However, on this occasion he denies abdominal pain. He also denies blood in stools, blood in vomitus, runny nose, sore throat, ear pain, chest pain, palpitations, heart racing, cough, shortness of breath, dysuria, hematuria, back pain headache or rash. In the ER he was noted to have Lactic Acidosis of 2.3 mmol/L present on admission with additional laboratory evidence of possible ROSSANA; with elevated serum creatinine of 1.86 mg/dL (up from his baseline of 1.46 mg/dL last admission). The ER physician then spoke to Dr. Sher of gastroenterology who recommended admission out of concern for the possibility of early cholangitis with additional recommendation patient be treated with empiric antibiotics and admitted to the hospitalist service for ongoing care for staythat is expected to extend beyond 2 midnights [facility] Medical History Carpal tunnel syndrome on both sides Cancer Wears glasses Thyroid disease Shingles Inguinal hernia Cardiology follow-up encounter History of stress test Choledocholithiasis Current use of piece marker small arms 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 Elevated liver enzymes Pancreatic mass High [...] PO DAILY reduce fluid 03/26/24 10/06/24 History Held on 10/21/24. Instructions: does not think it does much levothyroxine 125 mcg tablet 125 mcg PO DAILY disorder of 03/26/24 10/06/24 History thyroid gland aspirin 81 mg tablet,delayed 81 mg PO DAILY 08/31/24 0 10/03/24 History release (Adult Aspirin Regimen) multivitamin (Daily Multi-Vitamin 1 tab PO DAILY 08/3110/06/24 History tablet) Allergy/AdvReac Type Severity Reaction Status Date / Time azithromycin (From Zithromax) Allergy Itching Verified 10/21/24 23:18 bee venom protein (honey bee) AdvReac Swelling Verified 10/21/24 23:18 venom-wasp (wasps) AdvReac Swelling Verified 10/21/24 23:18 Surgical History History of total right hip arthroplasty S/P carpal tunnel release History of tonsillectomy History of ERCP Social History Smoking Status: Never smoker ROS ROS Narrative Review of Systems: Constitutional: Patient admits to fever but he denies chills. Eyes: Patient denies changes in vision or discharge from eyes. ENT: Patient denies runny nose, sore throat or ear pain. Resp: Patient denies shortness of breath or cough. GI: Patient admits to nausea and vomiting with bilious emesis as per HPI. He denies abdominal pain. : Patient denies dysuria, hematuria or urinary frequency. MSK: Patient denies arthralgias or myalgias. Skin: Patient denies rash, abscess, wounds or jaundice. Psych: Patient denies symptoms uncontrolled depression or anxiety. Neuro: Patient denies headache, paresthesias or focal neurologic deficits. Allergy: Patient denies lip swelling, tongue swelling or urticaria. Hematology: Patient denies easy bleeding or easy bruisability. Endocrinology: Patient denies polyuria, polydipsia or polyphagia. 14 point ROS otherwise negative save for positives noted above in HPI. Vital Signs Vital Signs Vital Signs: 10/21/24 23:17 10/21/24 23:17 10/21/24 23:23 Temperature 100.1 F H 100.1 F H Temperature Source Oral Oral Pulse Rate 76 75 Respiratory Rate 16 16 Respiratory Effort Normal Non-Labored Respiratory Pattern Normal Blood Pressure 116/65 116/65 Blood Pressure Mean 82 82 Pulse Ox 98 94 Oxygen Delivery Method Room Air Room Air 10/22/24 00:17 10/22/24 00:21 10/22/24 00:23 Temperature 99.2 F H 99.2 F H Temperature Source Oral Oral Pulse Rate 81 66 Respiratory Rate 16 19 H Respiratory Effort Respiratory Pattern Blood Pressure 118/65 118/65 Blood Pressure Mean 82 82 Pulse Ox 98 95 93 Oxygen Delivery Method Room Air Room Air Room Air 10/22/24 01:00 10/22/24 02:00 10/22/24 03:00 Temperature 99.1 F 98.9 F 98.6 F Temperature Source Oral Oral Oral Pulse Rate 53 L 66 58 L Respiratory Rate 16 16 16 Respiratory Effort Respiratory Pattern Blood Pressure 125/66 H 118/59 L 97/59 L Blood Pressure Mean 85 78 71 Pulse Ox 94 95 98 Oxygen Delivery Method Room Air Room Air Room Air Weight Weight: 298 lb 15.149 oz Body Mass Index (BMI) 42.9 Results Medical Records Data Attestation: I reviewed the patient's medical records Lab / Micro Data Attestation: I reviewed the patient's lab results. 10/22/24 00:35 10/22/24 00:35 Labs: Laboratory Results - last 24 hr 10/22/24 00:35: WBC 10.6, RBC 4.38 L, Hgb 13.8, Hct 41.2, MCV 94.1 H, MCH 31.5, MCHC 33.5, RDW Std Deviation 44.9 H, RDW Coeff of Gisella 13.1, Plt Count 197, MPV 9.8, Immature Gran % (Auto) 0.500, Neut % (Auto) 88.6 H, Lymph % (Auto) 4.8 L, [place] % (Auto) 5.8, Eos % (Auto) 0.1, Baso % (Auto) 0.2, Absolute Neuts (auto) 9.4 H, Absolute Lymphs (auto) 0.51 L, Nucleated RBC % 0, PT 15.3 H, INR 1.2, APTT 27.9, Sodium 140, Potassium 4.0, Chloride 104, Carbon Dioxide 23.7, Anion Gap 13, BUN 28 H, Creatinine 1.86 H, Estim Creat Clear Calc 43.92 L, Est GFR (MDRD) Non-Af 36 L, BUN/Creatinine Ratio 15.2, Glucose 189 H, Lactic Acid 2.3 H*, Calcium 8.5, Total Bilirubin 0.75, AST 28, ALT 33, Alkaline Phosphatase 93, Total Protein 6.2, Albumin 3.4, Globulin 2.8, Albumin/Globulin Ratio 1.2, [id number] Rhythm Strip Rhythm Strip: Sinus Rhythm Rate: 70 Ectopy: PAC(s) Imaging Radiology Impression Chest X-Ray 10/22/24 00:48 IMPRESSION: No evidence for acute abnormality. Reading Location: [facility] Imaging Services [address] [place] [address] Abdomen/Pelvis W IV Cont ONLY MR#: [id number] Acct: [id number] Name: FRAN PAREKH Rep #: [id number] : 1945 M 79 From: Harsh Granger MD PCP: Dr. Salvador Del Rosario MD Status: REG ER Study: Abdomen/Pelvis W IV Cont ONLY Date of Exam: 10/22/24 Exam# [id number] Ordering Dr: Manuel Alvarez MD PROCEDURE: ABDOMEN/PELVIS W IV CONT ONLY 10/22/2024 REASON FOR EXAM: FEVER, VOMITING, RECENT BILIARY STENT TECHNIQUE: ABDOMEN/PELVIS W IV CONT ONLY Coronal and Sagittal reconstruction series were provided. CONTRAST: Isovue-350. VOLUME: 100 mL One or more dose reduction techniques were used (e.g., Automated exposure control, adjustment of the mA and/or kV according to patient size, use of iterative reconstruction technique. RADIATION DOSE SUMMARY: CTDlvol: 24.18 mGy DLP: 1381 mGycm COMPARISON: 09/20/2024. FINDINGS: Unchanged benign chronic calcified 1.8 cm lesion in the anterior mediastinum. Small sliding hiatal hernia. Diffuse thickening of the stomach suggestive of gastritis. Mild hepatic steatosis. CBD stent is noted. Pneumobilia is noted. Unchanged multiple cystic lesions of the pancreatic tail. Scattered right renal simple cysts are noted with the largest measuring 3.5 cm. Uncomplicated colonic diverticulosis. Unremarkable metallic prosthesis of the right hip. Mild diffuse spondylosis. Unchanged mild chronic compression deformity of T11 vertebral body. Decreased diffuse thickening of the gallbladder. The visualized lung bases are unremarkable. Normal extrahepatic biliary system. Normal spleen. Normal bilateral adrenal glands. Normal size of the right kidney. There is no right renal mass. There are no right renal calculi. There is no right hydronephrosis. Normal visualized right ureter. Normal size of the left kidney. There is no left renal mass. There are no leftrenal calculi. There is no left hydronephrosis. Normal visualized left ureter. Normal small intestine. The appendix is visualized and appears normal. There is no demonstrated peritoneal fluid. Calcified atheromatous plaques of the abdominal aorta. Normal inferior vena cava. Normal retroperitoneum. Normal urinary bladder. There is no pelvic mass lesion or lymphadenopathy. There is no pelvic fluid. Normal abdominal wall. CT/Abdomen/Pelvis W IV Cont ONLY IMPRESSION: Unchanged benign chronic calcified 1.8 cm lesion in the anterior mediastinum. Small sliding hiatal hernia. Diffuse thickening of the stomach suggestive of gastritis. Mild hepatic steatosis. CBD stent is noted. Pneumobilia is noted. Unchanged multiple cystic lesions of the pancreatic tail. Scattered right renal simple cysts are noted with the largest measuring 3.5 cm. Uncomplicated colonic diverticulosis. Unremarkable metallic prosthesis of the right hip. Mild diffuse spondylosis. Unchanged mild chronic compression deformity of T11 vertebral body. Decreased diffuse thickening of the gallbladder. Reading Location: [place] [address] CC: Dr. Manuel Alvarez MD; Dr. Salvador Del Rosario MD ~ Software Packager: Signed Assessment & Plan Assessment/Plan (1) Cholangitis: (2) Lactic acidosis: (3) Fever: QUALIFIERS: Fever type: unspecified Qualified Code(s): R50.9 - Fever, unspecified (4) Nausea & vomiting: QUALIFIERS: Vomiting type: bilious vomiting Qualified Code(s): R11.14 - Bilious vomiting (5) ROSSANA (acute kidney injury): (6) CKD stage 3a, GFR 45-59 ml/min: (7) History of biliary stent insertion: (8) Pancreatic cyst: (9) Biliary stricture: (10) Morbid obesity with BMI of 40.0-44.9, adult: PLAN: Plan 1. Suspected Cholangitis with Lactic Acidosis of 2.3 mmol/L present on admission - Admit to generalmedical floor. Continue empiric IV piperacillin-tazobactam begun in the ER and await culture and sensitivity data. Serialize lactate. Check MRCP with CT not definitive for acute pathologic changes inbiliary tree. Give acetaminophen as needed for [id number] (level 1-5/10) pain or fever. Give morphine IV as needed for severe (level 6-10/10) pain. Finally, we will consult Dr. Sher of gastroenterology to see this patient on rounds in a.m. further recommendations appreciated in advance. 2. Fever, Nausea and Vomiting with bilious emesis likely due to #1 - Give ondansetron IV as needed for nausea vomiting. Give promethazine IM prn for breakthrough nausea. 3. ROSSANA; with elevated serum creatinine of 1.86 mg/dL (up from his baseline of 1.46 mg/dL last admission) in the setting of CKD; stage IIIa complicating #1 & #2 - Volume resuscitate and recheck renal indices daily to follow trend. We will avoid potentially nephrotoxic agents. 4. History of admission here from March 26, 2020 for 2 March 28, 2024 fortreatment of nausea,vomiting and abdominal pain with ~6 cm cystic lesion in thepancreatic tail on CT with suspected pancreatitis, transaminitis and hyperbilirubinemia of 4 mg/dL due to cholestatic hepatitis with patient ultimately diagnosed with choledocholithiasis without cholangitis, cholecystitisor obstruction withsubsequent biliary stent placement after pancreatic and biliary sphincterotomy with balloon extraction by Dr. Sher of gastroenterologywith subsequent ERCP with stent removal on July 04, 2024 with an other follow-up ERCP requiring stent replacement ~2 months ago adding to the medical complexity of #1 - #3 - Noted. 5. Morbid (Class III) Obesity; with BMI of 42.9 this admission adding to the burden of disease outlined from #1 - #4 - Weight loss are recommended. Check TSH. This complicates his case and may hamperrecovery. 6. History of saddle PE; on apixaban - Hold apixaban with possible impending repeat ERCP. 7. 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 8. Essential hypertension; on metoprolol and lisinopril - Hold oral antihypertensives. Give IV hydralazine prn for systolic blood pressure > 160 mmHg. 9. Hyperlipidemia; on atorvastatin - Restart statin when patient is cleared fororal intake. Check Lipid Profile. 10. Hypothyroidism; on levothyroxine - Restart levothyroxine when patient can tolerate oral intake and check TSH. 11. Neuropathy; on gabapentin - Stable. 12. History of shingles (2023) - Noted with no signs of recurrence at this time. 13. History of inguinal hernia (~2014) - Noted. 14. History of colonic diverticulosis - Noted. 15. Bilateral CTS; s/p release - Noted. 16. OA; s/p Right THR plus sciatica - Stable. We will follow pain regimen scales outlined in #1. 17. DVT/GI prophylaxis - SCD's only with possible impending procedure. Pantoprazole 40 mg IV daily. Total time: Approximately (but not less than) 75 minutes. Charges/Coding Visit Charges Inpatient E&M: 73593 Init Hosp L3 10/22/24 0655 Cosigner Signature (if applicable): CC: Dr. Salvador Del Rosario MD; Dr. Werner Nunn DO~ Signed [facility]06-24-2025 Discharge summary [facility] Medical Records Department [address] [place] [address] Emergency Department Summary 10/22/24 MR#: [id number] Acct: [id number] Name: FRAN PAREKH Rep #:[id number] : 1945 79 From: Manuel Alvarez MD PCP: Dr. Salvador Del Rosario MD Status :REG ER Location: ED HPI History of Present Illness Chief Complaint: General Illness Informant: patient Narrative Narrative: 79-year-old male presents with nausea and vomiting for the last hour or 2 and feeling poorly. No abdominal pain, chest pain, cough, dyspnea. He states he felt like he was sweating. EMS was called because he felt poorly. EMS checked his temperature of 102.5, the patient did not know he had a fever prior to them checking. He states these symptoms he had in the past when he had biliary issues. He states in March he had an ERCP with biliary stent, stent was removed and then he had another ERCP 1.5-2 months ago, and the stent was placed back in. [facility] Medical History Carpal tunnel syndrome on both sides Cancer Wears glasses Thyroid disease Shingles Inguinal hernia Cardiology follow-up encounter History of stress test Choledocholithiasis Current use of snf 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 Elevated liver enzymes Pancreatic mass High [...] PO DAILY reduce fluid 03/26/24 10/06/24 History Held on 10/21/24. Instructions: does not think it does much levothyroxine 125 mcg tablet 125 mcg PO DAILY disorder of 03/26/24 10/06/24 History thyroid gland aspirin 81 mg tablet,delayed 81 mg PO DAILY 08/31/24 0 10/03/24 History release (Adult Aspirin Regimen) multivitamin (Daily Multi-Vitamin 1 tab PO DAILY 08/3110/06/24 History tablet) Allergy/AdvReac Type Severity Reaction Status Date / Time azithromycin (From Zithromax) Allergy Itching Verified 10/21/24 23:18 bee venom protein (honey bee) AdvReac Swelling Verified 10/21/24 23:18 venom-wasp (wasps) AdvReac Swelling Verified 10/21/24 23:18 Surgical History History of total right hip arthroplasty S/P carpal tunnel release History of tonsillectomy History of ERCP Social History Smoking Status: Never smoker ROS ROS ED Constitutional Constitutional ED: Reports fever(s), malaise and sweats; Denies chills Eyes Eyes: Denies change in vision or diplopia ENT ENT ED: Denies rhinorrhea or sore throat Cardiovascular Cardiovascular: Denies chest pain or palpitations Respiratory/Chest Respiratory/Chest: Denies cough or dyspnea Gastrointestinal Gastrointestinal: Reports nausea and vomiting; Denies abdominal pain, diarrhea, hematemesis or melena Genitourinary Genitourinary ED: Denies dysuria or hematuria Musculoskeletal Musculoskeletal: Denies back pain or neck pain Integumentary Denies abscess or rash Neurologic Neurologic: Denies headache(s), paresthesias or weakness Psychiatric Psychiatric: Denies anxiety or suicidal thoughts EXAM Physical Exam Const Vital Signs: 10/21/24 23:17 10/21/24 23:17 10/21/24 23:23 Temperature 100.1 F H 100.1 F H Temperature Source Oral Oral Pulse Rate 76 75 Respiratory Rate 16 16 Respiratory Effort Normal Non-Labored Respiratory Pattern Normal Blood Pressure 116/65 116/65 Blood Pressure Mean 82 82 Pulse Ox 98 94 Oxygen Delivery Method Room Air Room Air 10/22/24 00:17 10/22/24 00:21 10/22/24 00:23 Temperature 99.2 F H 99.2 F H Temperature Source Oral Oral Pulse Rate 81 66 Respiratory Rate 16 19 H Respiratory Effort Respiratory Pattern Blood Pressure 118/65 118/65 Blood Pressure Mean 82 82 Pulse Ox 98 95 93 Oxygen Delivery Method Room Air Room Air Room Air 10/22/24 01:00 10/22/24 02:00 10/22/24 03:00 Temperature 99.1 F 98.9 F 98.6 F Temperature Source Oral Oral Oral Pulse Rate 53 L 66 58 L Respiratory Rate 16 16 16 Respiratory Effort Respiratory Pattern Blood Pressure 125/66 H 118/59 L 97/59 L Blood Pressure Mean 85 78 71 Pulse Ox 94 95 98 Oxygen Delivery Method Room Air Room Air Room Air 10/22/24 04:00 10/22/24 04:03 Temperature 98.6 F 98.6 F Temperature Source Oral Pulse Rate 60 60 Respiratory Rate 15 15 Respiratory Effort Respiratory Pattern Blood Pressure 100/59 L 100/59 L Blood Pressure Mean 72 72 Pulse Ox 97 97 Oxygen Delivery Method Room Air Positive well nourished, well developed and obese General Appearance ED: well developed and NAD Nutritional Appearance: obese HEENT Reports moist mucous membranes normocephalic and atraumatic Eyes PERRL and EOMs intact bilaterally Neck full ROM and supple Resp normal respiratory effort and clear to auscultation bilaterally Cardio regular rate, regular rhythm and no murmurs Rate: Negative for tachycardic GI non-tender and non-distended Auscultation: normoactive bowel sounds Palpation: soft Back/Spine no CVA tenderness General Back: other FROM Extremity normal to inspection General Extremety ED: Yes edema; Negative for pulses abnormal or tenderness General Extremity: edema bilateral lower extremity Details: moderate (Symmetric,with changes of chronic stasis dermatitis bilaterally. Nontender. All compartments soft and nondistended.); Negative for pulses abnormal Neuro oriented x3, CN's II-XII intact bilaterally and no sensory deficits noted Sensorium / Orientation: awake and alert Motor Exam: strength 5/5 throughout Psych mental status grossly normal Skin no rashes or lesions noted and no wounds MDM MDM MDM Narrative Medical decision making narrative: Septic workup was obtained, searching for possible source for his infection as well. Two-view chestx-ray my interpretation negative for pneumonia, he was notable to give us urine as he accidentally spilled it when attempting to provide specimen but he has had no urinary symptoms or flank pain/CVA tenderness to suggest pyelonephritis. He had a true fever per EMS, 100.1 here in the ER and after Tylenol 98.6. Feeling better after IV fluids and Zofran. His abdomen is benign. He has a borderline white blood count with a left shift although there are no bands, and his liver enzymes are reassuringly normal although he had a total bilirubin of 0.8 in August when he had choledocholithiasis on ERCP. I d iscussed with Dr. Sher. He suggest out of concern for the possibility of early cholangitis since we do not have an alternative source at this time to treat him empirically with IV antibiotics and admit him and he would consult. Discussed with hospitalist as well, who requested a CT of the abdomen/pelvis be performed. This was done as requested. I reviewed the images and the report which I agreewith. Nothing acute. Chronic abnormalities grossly unchanged. Presence of pneumobilia which can be present with biliary stent placement and isnot necessarily specific cholangitis. History & Record Review Additional record(s) reviewed:: Prior outpatient record (ERCP 08/2024: Choledocholithiasis, stones removed stent placed, ampulla of Vater lesion biopsied which was negative for malignancy) Lab Data Attestation: I reviewed the patient's lab results. Labs: Laboratory Results - last 24 hr 10/22/24 00:35 WBC 10.6 RBC 4.38 L Hgb 13.8 Hct 41.2 MCV 94.1 H MCH 31.5 MCHC 33.5 RDW Std Deviation 44.9 H RDW Coeff of Gisella 13.1 Plt Count 197 MPV 9.8 Immature Gran % (Auto) 0.500 Neut % (Auto) 88.6 H Lymph % (Auto) 4.8 L Cherokee % (Auto) 5.8 Eos % (Auto) 0.1 Baso % (Auto) 0.2 Absolute Neuts (auto) 9.4 H Absolute Lymphs (auto) 0.51 L Nucleated RBC % 0 PT 15.3 H INR 1.2 APTT 27.9 Sodium 140 Potassium 4.0 Chloride 104 Carbon Dioxide 23.7 Anion Gap 13 BUN 28 H Creatinine 1.86 H Estim Creat Clear Calc 43.92 L Est GFR (MDRD) Non-Af 36 L BUN/Creatinine Ratio 15.2 Glucose 189 H Lactic Acid 2.3 H* Calcium 8.5 Total Bilirubin 0.75 AST 28 ALT 33 Alkaline Phosphatase 93 Total Protein 6.2 Albumin 3.4 Globulin 2.8 Albumin/Globulin Ratio 1.2 Lipase 35 Radiography Diagnostic Testing: Clinical Impression(s) from Imaging Studies Chest X-Ray 10/22/24 00:48 IMPRESSION: No evidence for acute abnormality. Reading Location: [facility] Abdomen/Pelvis CT 10/22/24 04:02 IMPRESSION: Unchanged benign chronic calcified 1.8 cm lesion in the anterior mediastinum. Small sliding hiatal hernia. Diffuse thickening of the stomach suggestive of gastritis. Mild hepatic steatosis. CBD stent is noted. Pneumobilia is noted. Unchanged multiple cystic lesions of the pancreatic tail. Scattered right renal simple cysts are noted with the largest measuring 3.5 cm. Uncomplicated colonic diverticulosis. Unremarkable metallic prosthesis of the right hip. Mild diffuse spondylosis. Unchanged mild chronic compression deformity of T11 vertebral body. Decreased diffuse thickening of the gallbladder. Reading Location: [facility] Rhythm Strip Rhythm Strip: Sinus Rhythm Rate: 70 Ectopy: PAC(s) EKG Initial EKG: Attestation: I personally reviewed and interpreted this EKG as follows: Interpretation: Sinus Rhythm and No Acute Injury Pattern Management Discussion w/another healthcare provider: Hospitalist and Laser Technician (GI Friend) Discharge Plan Dx/Rx/DC Orders Clinical Impression: Fever, Vomiting, History of biliary stent insertion Disposition Disposition: [facility] What to do if you have Problems For any increased pain, shortness of breath, bleeding, nausea or vomiting, chestpain, or any unexpected problems, contact your Primary Care Provider. Call [facility] ([phone]) or report tothe closest Emergency Room. Call 911 if necessary. 10/22/24 0502 Cosigner Signature (if applicable): CC: Dr. Salvador Del Rosario MD ~ Signed [facility]06-24-2025 Radiology Diagnostic study note [facility] Imaging Services [address] [place] [address] Abdomen/Pelvis W IV Cont ONLY MR#: [id number] Acct: [id number] Name: FRAN PAREKH Rep #: [id number] : 1945 M 79 From: Gabi Granger MD PCP: Dr. Salvador Del Rosario MD Status: REG ER Study:Abdomen/Pelvis W IV Cont ONLY Date of E xam: 10/22/24 Exam# [id number] Ordering Dr: Matty Alvarez MD PROCEDURE: ABDOMEN/PELVIS W IV CONT ONLY 10/22/2024 REASON FOR EXAM: FEVER, VOMITING, RECENT BILIARY STENT TECHNIQUE: ABDOMEN/PELVIS W IV CONT ONLY Coronal and Sagittal reconstruction series were provided. CONTRAST: Isovue-350. VOLUME: 100 mL One or more dose reduction techniques were used (e.g., Automated exposure control, adjustment of the mA and/or kV according to patient size, use of iterative reconstruction technique. RADIATION DOSE SUMMARY: CTDlvol: 24.18 mGy DLP: 1381 mGycm COMPARISON: 09/20/2024. FINDINGS: Unchanged benign chronic calcified 1.8 cm lesion in the anterior mediastinum. Small sliding hiatal hernia. Diffuse thickening of the stomach suggestive of gastritis. Mild hepatic steatosis. CBD stent is noted. Pneumobilia is noted. Unchanged multiple cystic lesions of the pancreatic tail. Scattered right renal simple cysts are noted with the largest measuring 3.5 cm. Uncomplicated colonic diverticulosis. Unremarkable metallic prosthesis of the right hip. Mild diffuse spondylosis. Unchanged mild chronic compression deformity of T11 vertebral body. Decreased diffuse thickening of the gallbladder. The visualized lung bases are unremarkable. Normal extrahepatic biliary system. Normal spleen. Normal bilateral adrenal glands. Normal size of the right kidney. There is no right renal mass. There are no right renal calculi. There is no right hydronephrosis. Normal visualized right ureter. Normal size of the left kidney. There is no left renal mass. There are no leftrenal calculi. There is no left hydronephrosis. Normal visualized left ureter. Normal small intestine. The appendix is visualized and appears normal. There is no demonstrated peritoneal fluid. Calcified atheromatous plaques of the abdominal aorta. Normal inferior vena cava. Normal retroperitoneum. Normal urinary bladder. There is no pelvic mass lesion or lymphadenopathy. There is no pelvic fluid. Normal abdominal wall. CT/Abdomen/Pelvis W IV Cont ONLY IMPRESSION: Unchanged benign chronic calcified 1.8 cm lesion in the anterior mediastinum. Small sliding hiatal hernia. Diffuse thickening of the stomach suggestive of gastritis. Mild hepatic steatosis. CBD stent is noted. Pneumobilia is noted. Unchanged multiple cystic lesions of the pancreatic tail. Scattered right renal simple cysts are noted with the largest measuring 3.5 cm. Uncomplicated colonic diverticulosis. Unremarkable metallic prosthesis of the right hip. Mild diffuse spondylosis. Unchanged mild chronic compression deformity of T11 vertebral body. Decreased diffuse thickening of the gallbladder. Reading Location: [place] [address] CC: Dr. Manuel Alvarez MD; Dr. Salvador Del Rosario MD ~ Software Packager: Signed [facility]06-24-2025 Radiology Diagnostic study note [facility] Imaging Services [address] [place] [address] [id number] Chest PA and Lateral MR#: [id number] Acct: [id number] Name: FRAN PAREKH Rep #: [id number] : 1945 M 79 From: Gabi Granger MD PCP: Dr. Salvador Del Rosario MD Status: REG ER Study:Chest PA and Lateral Date of Exam: 10/22/24 Exam# [id number] Ordering Dr: Matty Alvarez MD PROCEDURE: CHEST PA AND LATERAL 10/22/2024 REASON FOR EXAM: FEVER TECHNIQUE: CHEST PA AND LATERAL COMPARISON: None. FINDINGS: The lungs are expanded. There is no demonstrated parenchymal abnormality. There is no demonstrated pleural abnormality. Normal heart and pericardium. Normal mediastinum and alek. Normal visualized pulmonary arteries. Normal visualized aortic arch and descending thoracic aorta. Normal visualized thoracic spine. Normal visualized ribs, clavicles, and shoulders. There is no demonstrated abnormality of the visualized soft tissue structures ofthe upper abdomen. RAD/Chest PA and Lateral IMPRESSION: No evidence for acute abnormality. [facility] CC: Dr. Manuel Alvarez MD; Dr. Salvador Del Rosario MD ~ Software Packager: Signed [facility]06-12-2025 Telephone encounter Note* Telephone Encounter - Malachi Castillo RN - 10/10/2024 8:39 AM EDT Pt returned call and given provider's message below with verbalized understanding. [facility]06-12-2025 Miscellaneous Notes* Telephone Encounter - Malachi Castillo RN - 10/10/2024 8:39 AM EDT Pt returned call and given provider's message below with verbalized understanding. * Telephone Encounter - Ree Ram LPN - 10/09/2024 9:16 AM EDT Images from the original note were not included. PodlogarMarilia APRN.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 P Wstr Fp Podlogar Pool TSH level in normal range. Continue current dose of synthroid. Marilia Orozco APRN.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 * Telephone Encounter - Ree Ram LPN - 10/09/2024 9:14 AM EDT Phoned patient left message to return call and ask to speak to a nurse for results. * Telephone Encounter - Ree Ram LPN - 10/09/2024 9:12 AM EDT ----- Message from Marilia Orozco APRN.CNP sent at 10/08/2024 2:41 PM EDT ----- Hand and wrist xray shows possible area of healing of wrist without any acute fracture. Also shows multiple areas of hand and wrist mild to severe arthritic changes. Marilia Orozco APRN.CNP documented in this encounterUpper [facility]06-[facility] Telephone encounter Note * Telephone Encounter - Ree Ram LPN - 10/09/2024 9:16 AM EDT Images from the original note were not included. PodlogarMarilia APRN.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 P Wstr Fp Podlogar Pool TSH level in normal range. Continue current dose of synthroid. Marilia Orozco APRN.CNP [facility]06-11-2025 Telephone encounter Note* Telephone Encounter - Ree Ram LPN - 10/09/2024 9:14 AM EDT Phoned patient left message to return call and ask to speak to a nurse for results. [facility]06-11-2025 Telephone encounter Note* Telephone Encounter - Ree Ram LPN - 10/09/2024 9:12 AM EDT ----- Message from Marilia Orozco APRN.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 sent at 10/08/2024 2:41 PM EDT ----- Hand and wrist xray shows possible area of healing of wrist without any acute fracture. Also shows multiple areas of hand and wrist mild to severe arthritic changes. Marilia Orozco APRN.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 [facility]06-10-[facility] History of Present illness Narrative* Selam Del Rio RT(R) - 10/08/2024 10:20 AM EDT Radiology Service Progress Note PATIENT [...] PATIENT PRESENTS WITH AN IMPLANTABLE OR ATTACHED LOAD BUILDER: No RADIOLOGY DEPARTMENT: General X-ray: Exam(s) Completed: Upper Extremity X- Ray(s): Wrist, left and Hand, left PERIPHERAL IV DATA: Not applicable SIGNED BY: KAYY Mandel) October 08, 2024 10:56 AM documented in this encounterUpper Valley [facility] Center06-10-2025 NoteHNO ID: [id number] Author: SELAM DEL RIO RT(R) Service: ? Author Type: Technologist Type: [...] PATIENT PRESENTS WITH AN IMPLANTABLE OR ATTACHED LOAD BUILDER: No RADIOLOGY DEPARTMENT: General X-ray: Exam(s) Completed: Upper Extremity X-Ray(s): Wrist, left and Hand, left PERIPHERAL IV DATA: Not applicable SIGNED BY: RT Ministerio(R) October 08, 2024 10:56 [facility]06-10-2025 Instructions* Patient Instructions* Marilia Orozco APRN.CNP - 10/08/2024 9:45 AM EDT - Continue taking your prescribed [place] for pain as directed; do not take extra Tylenol or any ibuprofen/NSAIDs while on Eliquis. - Apply ice to your left wrist for 15-20 minutes at a time as needed for pain relief. - You may use a compression wrap on your wrist if it does not overly limit your hand use. - Get your thyroid blood work today--check in at the lockstitch front maker for labs. - Have X-rays of your left hand and wrist today--check in at the lockstitch front maker for imaging. - We will review your X-ray results to determine if there is a break, sprain, or arthritis flare and plan any further treatment. documented in this encounterUpper Valley [facility] Center06-10-2025 NoteHNO ID: [id number] Author: MARILIA OROZCO APRN.CNP Service: ? Author Type: Nurse Practitioner Type: Progress Notes Filed: 10/08/2024 09:54 Note Text: 10/08/2024 Patient presents with: Pain: Left wrist pain, fell about a month ago and caught himself with his hands. Recording using modulR software for draft documentation of the visit was discussed with the patient/authorized passenger service representative; all questions welcomed and answered. Patient/authorized passenger service representative agreed to proceed SUBJECTIVE: This is [...] of skin of nose Dr. Chowdary in [place] Stage 3a chronic kidney disease (HCC) Venous [...] by mouth daily at bedtime. CPAP AutoPAP [id number]. Mask per preference, tubing, filters, humidity. Lifetime Supplies. Dx: G47.33. Fax 30 day compliance report to [phone]. CPAP Please provide mask fitting. Pt with [...] 07/30/2021 Advance Directive Discussion Never done Covid-19 Vaccine( season) due on 08/14/2024 (more content not included)...[facility]06-10-2025 History of Present illness Narrative* Marilia Orozco APRN.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 - 10/08/2024 9:36 AM EDT 10/08/2024 Patient presents with: Pain: Left wrist pain, fell about a month ago and caught himself with his hands. Recording using modulR software for draft documentation of the visit was discussed with the patient/authorized passenger service representative; all questions welcomed and answered. Patient/authorized passenger service representative agreed to proceed SUBJECTIVE: This is [...] of skin of nose Dr. Chowdary in [place] Stage 3a chronic kidney disease (HCC) Venous [...] by mouth daily at bedtime. CPAP AutoPAP [id number]. Mask per preference, tubing, filters, humidity. Lifetime Supplies. Dx: G47.33. Fax 30 day compliance report to [phone]. CPAP Please provide mask fitting. Pt with [...] SpO2 98% BMI 42.61 kg/m . Vital signsreviewed by this provider. GENERAL: NAD, alert and [...] 07/30/2021 Advance Directive Discussion Never done Covid-19 Vaccine( season) due on 08/14/2024 Hemoglobin/Hematocrit due on 01/18/2025 [...] month ago; no recollection of specific trauma orimpact. - Pain localized to the dorsum of [...] to reduce inflammation. - Patient currently on [place] for lower back pain and arthritis; advised against additional Tylenol due to current medication regimen. - Patient on Eliquis; advised against NSAIDs. - Discussed potential for sprains to take 6-8 weeks to heal. - Follow-up pending X-ray results to determine further management. Marilia Orozco APRN.CNP Prescription instructions reviewed with [...] Level: 3 - Low documented in this encounterUpper [facility] Center06-09-2025 History and physical note Author Alex Sher [facility] Note Date/Time October 07, 2024 11:[address] [facility] Medical Records Department [address] [place] [address] History & Physical Exam 10/07/24 1130 MR#: [id number] Acct: [id number] Name: FRAN PAREKH Rep #:[id number] : 1945 79 From: Alex Sher DO PCP: Dr. Salvador Del Rosario MD Status :REG [facility] Location: [place] [address] HPI - General General Date of Admission: 10/07/24 Date of Service: 10/07/24 Chief Complaint: Ampulla with low-grade dysplasia HPI Narrative FRAN PAREKH, is a 79 M who presents for repeat ERCP with ampullectomy. [facility] hospitalization 03.26.24 - 03.28.24 dizziness - consulted [...] was removed from the biliary tree. OV 07.23.24 pt reports that he is feeling well overall and denies GI symptoms of concern at this time. Reports continued sciatica pain and reports that in 2 weeks he is having ablation done with Dr Cabezas. [facility] Medical History Carpal tunnel syndrome on both sides Cancer Wears glasses Thyroid disease Shingles Inguinal hernia Cardiology follow-up encounter History of stress test Choledocholithiasis Current use of piece marker small arms 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 Elevated liver enzymes Pancreatic mass High [...] A biliary stent was visible on the french lecturer film. The esophagus was successfully intubated under [...] for CMV (cytomegalovirus) is negative (performed at [facility]) - IHC for p53 is wild-type. - IHC for Ki67 is not significantly increased We will schedule him for a repeat endoscopic procedure for of his ampulla due tothe finding of low grade dysplasia. 10/07/24 1132 <Electronically signed by Alex Sher DO> Cosigner Signature (if applicable): CC: Dr. Salvador Del Rosario MD; Alex Sher DO~ Signed [facility] Work Phone: 1(865) 647-604606-09-2025 Consult note [facility] Medical Records Department [address] [place] [address] Anesthesia Postop Eval II 10/07/24 1324 MR#: [id number] Acct: [id number] Name: FRAN PAREKH Rep #:[id number] : 1945 79 From: Jeff Bennett MD PCP: Dr. Salvador Del Rosario MD Status :REG [facility] [place] Race: C Location: [place] [address] Anesthesia Postop Eval I Sum Postop Eval [...] No 10/07/24 1325 > Date _ Jeff Barron Signature: Date CC: ~ Signed [facility]06-09-2025 Consult note [facility] Medical Records Department [address] [place] [address] Anesthesia Postop Eval I 10/07/24 1249 MR#: [id number] Acct: [id number] Name: FRAN PAREKH Rep #:[id number] : 1945 79 From: Tevin Vizcaino PCP: Dr. Salvador Del Rosario MD Status :REG SDC Y Race: C Location: [place] [address] Anesthesia: Postop Eval I Current Vital Signs [...] Yes 10/07/24 1250 > Date _ Tevin Barron Signature: Date CC: ~ Signed [facility]06-09-2025 Consult note Author Jeff Bennett [facility] Note Date/Time October 07, 2024 10:50 am [facility] Medical Records Department [address] [address] [place] [address] Pre-Anesthesia Evaluation 10/07/24 1049 MR#: [id number] Acct: [id number] Name: FRAN PAREKH Rep #:[id number] 31 : 1945 79 From: Jeff Bennett MD PCP: Dr. Salvador Del Rosario MD Status :REG SDC Y Race: C Location: [place] [address] ASA Classification* ASA Classification ASA Classification: 2 [...] 08/31/24 Magnesium 2.6 mg/dL (1.6-2.6) 03/27/24 06:35 11/27/24 BUN 21 mg/dL (4-19) H 08/31/24 11:42 08/31/24 Creatinine 1.46 mg/dL (0.70-1.20) H 08/31/24 11:42 Glucose 135 mg/dL (70-99) H 08/31/24 11:42 08/31/24 TSH 0.51 uIU/mL (0.358-3.74) 09/04/16 01:48 COAG PT 14.4 SECONDS (11.7-14.9) 03/26/24 02:15 Pre-Assessment Diagnosis/Proposed Procedure Planned Operative Procedure(s): ERCP stent placement. Anesthesia History Anesthesia History - edge plugger: Anesthesia History - edge plugger Hx Hospitalization Yes: [facility]- ERCP 03/24. 10/03/24 10:22 Any Problems With [...] take am of surgery PONV PONV - edge plugger: PONV - edge plugger Female No 10/03/24 10:22 HX of Motion [...] 09/17/24 09:36 Respiratory Assessment Respiratory Assessment - edge plugger: Respiratory Tract Infection Hx - edge plugger Hx Respiratory Tract Infection No 10/03/24 10:22 STOP Sleep Apnea STOP Sleep Apnea - edge plugger: STOP Sleep Apnea - edge plugger Hx Hypertension Yes: CONTROLLED WITH MEDS 10/03/24 [...] 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 Use History - edge plugger: Tobacco Use History - edge plugger Tobacco Use Smoking Status Never smoker 10/03/24 10:22 Hx Tobacco Use No 10/03/24 10:22 Years Smoking Packs Smoked per Day Smoking Cessation Date was within the last 15 years Hx Smoking Cessation Date Hx Smoking Cessation Counseling Hematologic Medial History Hematologic Hx - edge plugger: Hematologic 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 Hx - environmental auditor Hx of Blood Transfusion No 10/03/24 10:22 [...] confused, unrespo /Reproduction History /Reproductive History - edge plugger: /Reproductive Hx- edge plugger Hx Now Gestational Age (in weeks): EDC: [...] of stress test Choledocholithiasis Current use of piece marker small arms 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 Elevated liver enzymes Pancreatic mass High [...] by Jeff Bennett MD > Date _ eJff Barron Signature: Date CC: ~ Signed [facility] Work Phone: 1(132) 208-413606-09-2025 Procedure note [facility] Medical Records Department [address] [place] [address] ERCP Report MR#: [id number] Acct: [id number] Name: FRAN PAREKH Rep #:[id number] : 1945 79 From: Alex Sher DO PCP: Dr. Salvador Del Rosario MD Status :[facility] Patient Name: Fran Parekh Procedure Date: 10/07/2024 11:41 AM Date of : 1945 Age: 79 Procedure: ERCP Indications: Stent change, Ampullary adenoma, Bile duct stricture Providers: Alex Sher DO Referring MD: Salvador Del Rosario Medicines: Monitored Anesthesia Care Patient Profile: This [...] hours 21 minutes 34 seconds Findings: The french lecturer film was normal. The esophagus was successfully [...] bile duct. Procedure Code(s): --- Professional --- 56510, Endoscopic retrograde cholangiopancreatography (ERCP); with placement of endoscopic stent into biliary or pancreatic duct, including pre- and post-dilation and guide wire passage, when performed, including sphincterotomy, when performed, each stent 29432, Endoscopic retrograde cholangiopancreatography (ERCP); with ablation of tumor(s), polyp(s), or other lesion(s), including pre- and post-dilation and guide wire passage, when performed 55789, Endoscopic retrograde cholangiopancreatography (ERCP); with removal of calculi/debris from biliary/pancreatic duct(s) 73045, 59, Endoscopic retrograde cholangiopancreatography (ERCP); with sphincterotomy/papillotomy 20602, Esophagogastroduodenoscopy, flexible, transoral; with removal of tumor(s), polyp(s), or other lesion(s) by hot biopsy forceps 22515, 26, Endoscopic catheterization of the biliary ductal system, radiological supervision and interpretation CPT copyright 2021 [employer]. All rights reserved. The codes documented in this report are preliminary and upon stock lifter review may be revised to meet current compliance requirements. Alex Sher DO 10/07/2024 12:44:24 PM This report has been signed electronically. Number of Addenda: 0 Note Initiated On: 10/07/2024 11:41 AM 10/07/24 1244 Date _ Alex Sher DO Cosigner Signature: Date (if indicated) CC: Dr. Salvador Del Rosario MD; Alex Sher DO ~ Date Dictated: 10/07/24 1141 Date Transcribed: Software Packager: RF Signed [facility]06-09-2025 Procedure note [facility] Medical Records Department [address] [place] [address] Operative Report - CC Letter MR#: [id number] Acct: [id number] Name: FRAN PAREKH Rep #:[id number] : 1945 79 From: Alex Sher DO PCP: Dr. Salvador Del Rosario MD Status :REG [facility] 10/07/2024 Salvador Del Rosario Re : ERCP procedure for Fran Parekh Anahi Del Rosario This procedure was performed on Monday, October [...] Signature: Date (if indicated) CC: Dr. Salvador Del Rosario MD; Alex Sher DO ~ Date Dictated: 10/07/24 1141 Date Transcribed: Software Packager: RF Signed [facility]06-09-2025 History and physical note [facility] Medical Records Department [address] [place] [address] History & Physical Exam 10/07/24 1130 MR#: [id number] Acct: [id number] Name: FRAN PAREKH Rep #:[id number] : 1945 79 From: Alex Sher DO PCP: Dr. Salvador Del Rosario MD Status :[facility] Location: [place] [address] HPI - General General Date of Admission: 10/07/24 Date of Service: 10/07/24 Chief Complaint: Ampulla with low-grade dysplasia HPI Narrative FRAN PAREKH, is a 79 M who presents for repeat ERCP with ampullectomy. [facility] hospitalization 03.26.24 - 03.28.24 dizziness - consulted [...] was removed from the biliary tree. OV 07.23.24 pt reports that he is feeling well overall and denies GI symptoms of concern at this time. Reports continued sciatica pain and reports that in 2 weeks he is having ablation done with Dr Cabezas. [facility] Medical History Carpal tunnel syndrome on both sides Cancer Wears glasses Thyroid disease Shingles Inguinal hernia Cardiology follow-up encounter History of stress test Choledocholithiasis Current use of piece marker small arms 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 Elevated liver enzymes Pancreatic mass High [...] A biliary stent was visible on the french lecturer film. The esophagus was successfully intubated under [...] for CMV (cytomegalovirus) is negative (performed at [facility]) - IHC for p53 is wild-type. - IHC for Ki67 is not significantly increased We will schedule him for a repeat endoscopic procedure for of his ampulla due tothe finding of low grade dysplasia. 10/07/24 1132 Cosigner Signature (if applicable): CC: Dr. Salvador Del Rosario MD; Alex Sher, DO~ Signed [facility]06-09-20[facility] Consult note [facility] Medical Records Department [address] [place] [address] Pre-Anesthesia Evaluation 10/07/24 1049 MR#: [id number] Acct: [id number] Name: FRAN PAREKH Rep #:[id number] 31 : 1945 79 From: Jeff Bennett MD PCP: Dr. Salvador Del Rosario MD Status :REG SDC Y Race: C Location: [place] [address]1 ASA Classification* ASA Classification ASA Classification: 2 [...] 08/31/24 Creatinine 1.46 mg/dL (0.70-1.20) H 08/31/24 11: Glucose 135 mg/dL (70-99) H 08/31/24 11:08/31/24 TSH 0.51 uIU/mL (0.358-3.74) 09/04/16 01:48 COAG PT 14.4 SECONDS (11.7-14.9) 03/26/24 02:15 Pre-Assessment Diagnosis/Proposed Procedure Planned Operative Procedure(s): ERCP stent placement. Anesthesia History Anesthesia History - edge plugger: Anesthesia History - edge plugger Hx Hospitalization Yes: [facility]- ERCP 03/24. 10/03/24 10:22 Any Problems With [...] take am of surgery PONV PONV - edge plugger: PONV - edge plugger Female No 10/03/24 10:22 HX of Motion [...] 09/17/24 09:36 Respiratory Assessment Respiratory Assessment - edge plugger: Respiratory Tract Infection Hx - edge plugger Hx Respiratory Tract Infection No 10/03/24 10:22 STOP Sleep Apnea STOP Sleep Apnea - edge plugger: STOP Sleep Apnea - edge plugger Hx Hypertension Yes: CONTROLLED WITH MEDS 10/03/24 [...] 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 Use History - edge plugger: Tobacco Use History - edge plugger Tobacco Use Smoking Status Never smoker 10/03/24 10:22 Hx Tobacco Use No 10/03/24 10:22 Years Smoking Packs Smoked per Day Smoking Cessation Date was within the last 15 years Hx Smoking Cessation Date Hx Smoking Cessation Counseling Hematologic Medial History Hematologic Hx - edge plugger: Hematologic Medical Hx - environmental auditor Hx of Blood Transfusion No 10/03/24 10:22 [...] confused, unrespo /Reproduction History /Reproductive History - edge plugger: /Reproductive Hx- edge plugger Hx Now Gestational Age (in weeks): EDC: [...] of stress test Choledocholithiasis Current use of piece marker small arms 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 Elevated liver enzymes Pancreatic mass High [...] MD Cosigner Signature: Date CC: ~ Signed [facility]05-28-2025 NoteHNO ID: [id number] Author: VICTOR MANUEL BURROWS, DO Service: ? Author Type: Physician Type: Progress Notes Filed: 09/25/2024 08:38 Note Text: PULMONARY HYPERTENSION CLINIC Initial Visit September 25, 2024 I had the pleasure of seeing Fran Parekh in consultation at the request of for Pulmonary Hypertension. Summary of this visit and my recommendations will be relayed to the referring physician by way of electronic communication or by mail. PCP: Agnes Del Rosario MD Referring Provider: Subjective: I had the [...] by mouth daily at bedtime. CPAP AutoPAP [id number]. Mask per preference, tubing, filters, humidity. Lifetime Supplies. Dx: G47.33. Fax 30 day compliance report to [phone]. CPAP Please provide mask fitting. 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 Chowdary in [place] Stage 3a chronic kidney disease (HCC) Venous insufficiency PAST SURGICAL HISTORY Procedure Laterality Date ARTHRP ACETBLR/PROX FEM PROSTC AGRFT/ALGRFT Right 06/03/2019 Hip replacement, total COLONOSCOPY FLX DX W/COLLJ SPEC WHEN PFRMD 04/21/11 Repeat 10 [id number] LASER GREENLIGHT prostate, [place] NEUROPLASTY AND/TRANSPOS MEDIAN NRV CARPAL TUNNE Left 01/17/2020 Left carpal tunnel release NEUROPLASTY AND/TRANSPOS MEDIAN NRV CARPAL TUNNE Right 03/04/2020 Right carpal tunnel release RPR UMBILICAL HRNA 5 YRS/> REDUCIBLE TONSILLECTOMY PRIMARY/SECONDARY Tonsillectomy FAMILY HISTORY Problem Relation Age of Onset Heart Mother other (Myocardial infarction) Mother 81 d (more content not included)...[id number] History of Present illness Narrative* Victor Manuel Burrows DO - 09/25/2024 8:23 AM EDT Images from the original note were not included. PULMONARY HYPERTENSION CLINIC Initial Visit September 25, 2024 I had the pleasure of seeing Fran Parekh in consultation at the request of for Pulmonary Hypertension. Summary of this visit and my recommendations will be relayed to the referring physician by way of electronic communication or by mail. PCP: Agnes Del Rosario MD Referring Provider: Subjective: I had the [...] by mouth daily at bedtime. CPAP AutoPAP [id number]. Mask per preference, tubing, filters, humidity. Lifetime Supplies. Dx: G47.33. Fax 30 day compliance report to [phone]. CPAP Please provide mask fitting. Pt with [...] of skin of nose Dr. Chowdary in [place] Stage 3a chronic kidney disease (HCC) Venous insufficiency PAST SURGICAL HISTORY Procedure Laterality Date ARTHRP ACETBLR/PROX FEM PROSTC AGRFT/ALGRFT Right 06/03/2019 Hip replacement, total COLONOSCOPY FLX DX W/COLLJ SPEC WHEN PFRMD 04/21/11 Repeat 10 [id number] LASER GREENLIGHT prostate, [place] NEUROPLASTY &/TRANSPOS MEDIAN [...] uU/mL HIV No results found for: HIVSCN, [id number]] Hepatitis B Surface Antigen No results found [...] symptoms or questions arise. SIGNATURE: Victor Manuel Burrows DO [facility] DATE of SERVICE: September 25, 2024 8:33 AM documented in this encounter[facility] Evaluation note* Diagnosis Onset Date Resolution Status Admit Date Balance disorder acute August 9:03am Lumbar scoliosis acute August 9:03am Spinal stenosis of lumbar re gion with neurogenic claudication acute September 17, 2024 9:03am Spondylolisthesis, lumbar region acu te September 17, 2024 9:03am Synovial cyst of lumbar face t joint acute September 17, 2024 9:03am Ampulla of Vater mass acute Jose Daniel e 2024 10:24am Biliary stricture inactive September 10:24am ROSSANA (acute kidney injury) inactive October 22, 2024 4:38am Biliary stricture inactive October 222024 4:38am Cholangitis inactive October 22 4:38am CKD stage 3a, GFR 45-59 ml/min inact radha October 22, 2024 4:38am Fever inactive October 22 4:38am History of biliary stent insertion i nactive October 22, 2024 4:38am Lactic acidosis inactive September 4:38am Morbid obesity with BMI of 40.0-44.9, adult inactive October 22, 2024 4:38am Nausea & vomiting inactive October 222024 4:38am Pancreatic cyst inactive September 4:38am Ampulla of Vater mass acute Obi 2024 8:18am Choledocholithiasis acute November 06, 2024 8:18am Fever acute November 06, 2024 8:18am Choledocholithiasis acute Augus t 2024 9:58am [facility] Work Phone: 1(863) 553-411905-03-2025 NoteHNO ID: [id number] Author: COLE CAMPOS MD Service: ? Author Type: Physician Type: Progress Notes Filed: 08/31/2024 11:11 Note Text: Express Care Triage Note: Patient presents to the [facility] with complaint of abdominal pain for the last day. He is also experiencing current sciatic pain and taking [place]. He has been unable to take pain medicine today because of upset stomach and wants to avoid further aggravating abdominal pain. He is concerned he may have constipation but also has history of diverticulitis. He is in apparent discomfort in the waiting room. He was offered the opportunity to have initial evaluation here in the express care with likely referral where imaging is available. He chooses to go to the ED for evaluation instead. He declines EMS transfer.[facility]05-03-[facility] History of Present illness Narrative* Cole Campos MD - 08/31/2024 11:07 AM EDT [facility] Triage Note: Patient presents to the [facility] with complaint of abdominal pain for the last day. He is also experiencing current sciatic pain and taking [place]. He has been unable to take pain medicine today because of upset stomach and wants to avoid further aggravating abdominal pain. He is concerned he may have constipation but also has history of diverticulitis. He is in apparent discomfort in the waiting room. He was offered the opportunity to have initial evaluation here in the [facility] with likely referral where imaging is available. He chooses to go to the ED for evaluation instead. He declines EMS transfer. documented in this encounterUpper [facility] Center05-01-2025 Consult note Author Jeff Bennett [facility] Note Date/Time October 07, 2024 1:25p [facility] Medical Records Department [address] [place] [address] Anesthesia Postop Eval II 10/07/24 1324 MR#: [id number] Acct: [id number] Name: FRAN PAREKH Rep #:[id number] : 1945 79 From: Jeff Bennett MD PCP: Dr. Salvador Del Rosario MD Status :REG [facility] Y Race: C Location: [place] [address]- Anesthesia Postop Eval I Sum Postop Eval [...] MD Cosigner Signature: Date CC: ~ Signed [facility] Work Phone: 1(199) 912-559204-29-2025 Telephone encounter Note* Telephone Encounter - Sissy Campbell LPN - 08/27/2024 12:28 PM EDT Completed form faxed back as requested. Sissy Campbell LPN [facility]04-29-2025 Miscellaneous Notes* Telephone Encounter - Sissy Campbell LPN - 08/27/2024 12:28 PM EDT Completed form faxed back as requested. Sissy Campbell LPN * Telephone Encounter - Agnes Del Rosario MD - 08/27/2024 12:11 PM EDT He is on Eliquis. Ok to stop 2 days prior to procedure. Form completed. * Telephone Encounter - Sissy Campbell LPN - 08/27/2024 11:57 AM EDT Received form from [facility] regarding upcoming procedure and request to stop coumadin. Form forwarded to provider's desk for review. Sissy Campbell LPN documented in this encounterUpper Valley Medical Center04-29-2025 Telephone encounter Note * Telephone Encounter - Agnes Del Rosario MD - 08/27/2024 12:11 PM EDT He is on Eliquis. Ok to stop 2 days prior to procedure. Form completed. [facility]04-29-20[facility] Telephone encounter Note* Telephone Encounter - Sissy Campbell LPN - 08/27/2024 11:57 AM EDT Received form from [facility] [place] regarding upcoming procedure and request to stop coumadin. Form forwarded to provider's desk for review. Sissy Campbell LPN [facility]04-18-2025 Telephone encounter Note* Telephone Encounter - Marilia Orozco APRN.CNP - 08/16/2024 1:24 PM EDT Order for TSH placed. Marilia Orozco APRN.CNP [facility]04-18-2025 Miscellaneous Notes* Telephone Encounter - Marilia Orozco [...] 6.0%. Marilia Orozco APRN.RUBÉN documented in this encounterUpper Valley Medical Center04-18-2025 Telephone encounter Note * Telephone Encounter - Katlyn Melissa RN - 08/16/2024 1:13 PM EDT Pt called and is notified of providers results and instructions. Pt voices understanding, after I notified that she wanted him to start taking 2 pills every Monday and one pill every other day. Please place lab orders for recheck on Thyroid. Katlyn Melissa, RN [facility]04-18-2025 Telephone encounter Note* Telephone Encounter - Eunice Bruce LPN - 08/16/2024 10:20 AM EDT Telephone call placed to patient. Message left to call office back for update. Eunice Bruce LPN [facility]04-18-2025 Telephone encounter Note* Telephone Encounter - Marilia [...] is stable at 6.0%. Marilia Orozco APRN.RUBÉN [facility]04-15-2025 History of Present illness Narrative* Marilia Orozco APRN.CNP - 08/13/2024 11:40 AM EDT 08/12/2024 Patient [...] gi upset: Yes 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 Sher, non licensed operator, for hx of choledocholithiasis. Recent ERCP on [...] of skin of nose Dr. Chowdary in [place] Stage 3a chronic kidney disease (HCC) Venous [...] not taking: Reported on 12/19/2023) CPAP AutoPAP [id number]. Mask per preference, tubing, filters, humidity. Lifetime Supplies. Dx: G47.33. Fax 30 day compliance report to [phone]. CPAP Please provide mask fitting. Pt with [...] Abs Lymph 1.00 - 4.00 k/uL 2.23 Cherokee% % 10.0 Abs Cherokee <0.87 k/uL 1.03 (H) Eosin% % 1.9 [...] -follow-up with pulmonology as recommended Marilia Orozco APRN.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 Prescription instructions reviewed with patient as applicable. [...] Level: 4 - Moderate documented in this encounterUpper Valley Medical Center04-15-2025 NoteHNO ID: [id number] Author: MARILIA OROZCO APRN.CNP Service: ? Author [...] gi upset: Yes 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 Sher, non licensed operator, for hx of choledocholithiasis. Recent ERCP on [...] of skin of nose Dr. Chowdary in [place] Stage 3a chronic kidney disease (HCC) Venous [...] not taking: Reported on 12/19/2023) CPAP AutoPAP [id number]. Mask per preference, tubing, filters, humidity. Lifetime Supplies. Dx: G47.33. Fax 30 day compliance report to [phone]. CPAP Please provide mask fitting. Pt with [...] wheezes, rhonchi or r (more content not included)...[facility]04-14-2025 Telephone encounter Note* Telephone Encounter - [...] Bowen RN August 12, 2024 11:34 AM [facility]04-14-2025 Miscellaneous Notes* Telephone Encounter - Carli Bowen [...] 12, 2024 11:34 AM documented in this encounterUpper Valley Medical Center04-09-2025 NoteHNO ID: [id number] Author: MORELIA MUNGUIA MA Service: ? Author Type: Director Of District Office Type: Progress Notes Filed: 08/07/2024 14:12 Note Text: POPULATION HEALTH NAVIGATION OUTREACH Action/FYI Patient returned call and patient declined scheduling. Reason for Outreach Returned Call/MyChart Patient Contacted: Spoke to patient/parent/or legal guardian Patient identified by name and date of : Yes Returned call/MyChart actions taken: Patient declined: Doesn't feel it's necessary Navigation Signature: Morelia Munguia MA August 07, 2024 2:11 [facility] History of Present illness Narrative* Morelia [...] 07, 2024 12:59 PM documented in this encounterUpper Valley [facility] Center04-09-2025 NoteHNO ID: [id number] Author: MORELIA MUNGUIA MA Service: ? Author Type: Director Of District Office Type: Progress Notes Filed: 08/07/2024 13:00 Note [...] or unnecessary to reach patient: Left message 51eduhart message sent HCC related Navigation Signature: Morelia Munguia MA August 07, 2024 12:59 [facility]04-09-2025 NotePatient Outreach (NETNAV) FRAN PAREKH ([id number]) 1945 M Date Time Provider Department 08/07/24 [...] or unnecessary to reach patient: Left message 51eduhart message sent HCC related Navigation Signature: Morelia [...] Visit: Population Health Navigation Outreach [3910] Cmt: [facility] Prescriptions as of 08/07/2024 - lisinopril (ZESTRIL) [...] hour before dental procedure. - CPAP AutoPAP [id number]. Mask per preference, tubing, filters, humidity. Lifetime Supplies. Dx: G47.33. Fax 30 day compliance report to [phone]. - CPAP Please provide mask fitting. Pt [...] 03/25/2009 Open fracture of distal phalangeal tuft [OLM567*08/31/2011 05/09/2014 Internal derangement of right knee [M23.91] [...] chronic kidney disease [N18 (more content not included)...[facility]03-28-2025 Telephone encounter Note* Telephone Encounter - Bob Powell MD - 07/26/2024 11:46 PM EDT The following approved medication requests have been transmitted electronically. Requested Prescriptions Signed Prescriptions Disp Refills lisinopril (ZESTRIL) 40 mg tablet 90 tablet 1 Sig: Take 1 tablet by mouth once daily. Authorizing Provider: BOB POWELL MD [facility]03-28-2025 Miscellaneous Notes* Telephone Encounter - Bob Powell MD - 07/26/2024 11:46 PM EDT The following approved medication requests have been transmitted electronically. Requested Prescriptions Signed Prescriptions Disp Refills lisinopril (ZESTRIL) 40 mg tablet 90 tablet 1 Sig: Take 1 tablet by mouth once daily. Authorizing Provider: BOB POWELL MD * Telephone Encounter - Malachi Castillo [...] 26, 2024 4:43 PM documented in this encounterUpper [facility] Center03-28-2025 Telephone encounter Note * Telephone Encounter - [...] Castillo RN July 26, 2024 4:43 PM [facility]03-25-2025 Evaluation note* Diagnosis Onset Date Resolution Status Admit Date Ampulla of Vater mass acute Jun 8:21am Choledocholithiasis acute July 23, 2024 8:21am Pancreatitis acute July 23, 2024 8:21am Pancreatic cyst inactive June 8:21am Balance disorder acute August 9:03am Lumbar scoliosis acute August 9:03am Spinal stenosis of lumbar re gion with neurogenic claudication acute September 17, 2024 9:03am Spondylolisthesis, lumbar region acu te September 17, 2024 9:03am Synovial cyst of lumbar face t joint acute September 17, 2024 9:03am Ampulla of Vater mass acute Sep 10:24am Biliary stricture inactive September 10:24am ROSSANA (acute kidney injury) inactive October 22, 2024 4:38am Biliary stricture inactive October 222024 4:38am Cholangitis inactive October 22 4:38am CKD stage 3a, GFR 45-59 ml/min inact radha October 22, 2024 4:38am Fever inactive October 22 4:38am History of biliary stent insertion i nactive October 22, 2024 4:38am Lactic acidosis inactive September 4:38am Morbid obesity with BMI of 40.0-44.9, adult inactive October 22, 2024 4:38am Nausea & vomiting inactive October 222024 4:38am Pancreatic cyst inactive September 4:38am [facility] Services Work Phone: 1(431) 754-633903-06-2025 Consult note Author Abundio Merrill [facility] Note Date/Time July 04, 2024 9:43 am [facility] Medical Records Department [address] [place] [address] Pre-Anesthesia Evaluation 07/04/24 0921 MR#: [id number] Acct: [id number] Name: FRAN PAREKH Rep #:[id number] : 1945 78 From: Abundio Merrill MD PCP: Dr. Salvador Del Rosario MD Status :REG SDC Y Race: C Location: [place] [address] ASA Classification* ASA Classification ASA Classification: 3 [...] Procedure(s): ERCP Anesthesia History Anesthesia History - edge plugger: Anesthesia History - edge plugger Hx Hospitalization Yes: [facility]- ERCP 03/24. 07/02/24 14:53 Any Problems With [...] take am of surgery PONV PONV - edge plugger: PONV - edge plugger Female No 07/02/24 14:53 HX of Motion [...] 07/04/24 08:49 Respiratory Assessment Respiratory Assessment - edge plugger: Respiratory Tract Infection Hx - edge plugger Hx Respiratory Tract Infection No 07/02/24 14:53 STOP Sleep Apnea STOP Sleep Apnea - edge plugger: STOP Sleep Apnea - edge plugger Hx Hypertension Yes: CONTROLLED WITH MEDS 07/02/24 [...] 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 Use History - edge plugger: Tobacco Use History - edge plugger Tobacco Use Smoking Status Never smoker 07/02/24 14:53 Hx Tobacco Use No 07/02/24 14:53 Years Smoking Packs Smoked per Day Smoking Cessation Date was within the last 15 years Hx Smoking Cessation Date Hx Smoking Cessation Counseling Hematologic Medial History Hematologic Hx - edge plugger: 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 Abundio Merrill MD) Carpal tunnel syndrome on both sides Cancer Wears glasses Thyroid disease Shingles Inguinal hernia Cardiology follow-up encounter History of stress test Choledocholithiasis Current use of snf 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 Elevated liver enzymes Pancreatic mass High [...] MD Cosigner Signature: Date CC: ~ Signed [facility] Work Phone: [phone]) 690-810503-06-2025 Radiology Diagnostic study note [facility] Imaging Services [address] [place] [address] ERCP Biliary/Pancreas MR#: [id number] Acct: [id number] Name: FRAN PAREKHEY Rep #: [id number] : 1945 M 78 From: Jodie Jauregui MD PCP: Dr. Salvador Del Rosario MD Status: [facility] Study:ERCP Biliary/Pancreas Date of Exam: 07/04/24 Exam# [id number] Ordering Dr: Tarah Sher DO PROCEDURE: ERCP [...] IMPRESSION: Unremarkable endoscopic retrograde cholangiopancreatography. Reading Location: [place] [address] CC: Dr. Salvador Del Rosario MD; Alex Sher DO ~ Software Packager: Signed [facility]03-06-2025 Procedure note [facility] Medical Records Department [address] [place] [address] ERCP Report MR#: [id number] Acct: [id number] Name: FRAN PAREKH Rep #:[id number] : 1945 78 From: Alex Sher DO PCP: Dr. Salvador Del Rosario MD Status :REG [facility] Patient Name: Fran Parekh Procedure Date: 07/04/2024 [...] A biliary stent was visible on the french lecturer film. The esophagus was successfully intubated under [...] biliary tree. Procedure Code(s): --- Professional --- 00657, Endoscopic retrograde cholangiopancreatography (ERCP); with removal of foreign body(s) or stent(s) from biliary/pancreatic duct(s) 16761, Endoscopic retrograde cholangiopancreatography (ERCP); with removal of calculi/debris from biliary/pancreatic duct(s) 24161, Endoscopic retrograde cholangiopancreatography (ERCP); with sphincterotomy/papillotomy 51190, Esophagogastroduodenoscopy, flexible, transoral; with biopsy, single or multiple 70719, 26, Endoscopic catheterization of the biliary ductal system, radiological supervision and interpretation CPT copyright 2021 [employer]. All rights reserved. The codes documented in this report are preliminary and upon stock lifter review may be revised to meet current compliance requirements. Alex Sher DO 07/04/2024 11:05:54 AM This report has been signed electronically. Number of Addenda: 0 Note Initiated On: 07/04/2024 10:18 AM 07/04/24 1105 Date _ Alex Sher DO Cosigner Signature: Date (if indicated) CC: Dr. Salvador Del Rosario MD; Alex Sher DO ~ Date Dictated: 07/04/24 1018 Date Transcribed: Software Packager: RF Signed [facility]03-06-2025 Procedure note [facility] Medical Records Department [address] [place] [address] Operative Report - CC Letter MR#: [id number] Acct: [id number] Name: FRAN PAREKH Rep #:[id number] : 1945 78 From: Alex Sher DO PCP: Dr. Salvador Del Rosario MD Status :REG [facility] 07/04/2024 Salvador Del Rosario Re : ERCP procedure for Fran Parekh [...] signed electronically. 07/04/24 1105 Date _ Alex Sher DO Cosigner Signature: Date (if indicated) CC: Dr. Salvador Del Rosario MD; Alex Sher DO ~ Date Dictated: 07/04/24 1018 Date Transcribed: Software Packager: RF Signed [facility]03-06-2025 Consult note [facility] Medical Records Department [address] [place] [address] Anesthesia Postop Eval I 07/04/24 1059 MR#: [id number] Acct: [id number] Name: FRAN PAREKH Rep #:[id number] : 1945 78 From: Tevin Vizcaino PCP: Dr. Salvador Del Rosario MD Status :REG [facility] Y Race: C Location: [place] [address] Anesthesia: Postop Eval I Current Vital Signs [...] Yes 07/04/24 1100 > Date _ Tevin Barron Signature: Date CC: ~ Signed [facility]03-06-2025 Evaluation note* Diagnosis Onset Date Resolution Status Admit Date 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 8:24am Choledocholithiasis acute July 04, 2024 8:24am Ampulla of Vater mass acute Jun 8:21am Choledocholithiasis acute July 23, 2024 8:21am Pancreatic cyst acute June 8:21am Pancreatitis acute July 23, 2024 8:21am [facility] Services Work Phone: [phone]) [phone] Evaluation note* Diagnosis Onset Date Resolution Status [...] 2024 9:03am Ampulla of Vater mass acute Sep 10:24am Biliary stricture acute September 10:24am [facility] Work Phone: [phone]) [phone] Evaluation note* Diagnosis Onset Date Resolution Status [...] 2024 9:03am Ampulla of Vater mass acute Sep 10:24am Biliary stricture acute September 10:24am ROSSANA (acute kidney injury) acute October 22, 2024 4:38am Biliary stricture acute October 222024 4:38am Cholangitis acute October 22 4:38am Fever acute October 22 4:38am History of biliary stent insertion a cute October 22, 2024 4:38am Lactic acidosis acute September 4:38am Morbid obesity with BMI of 40.0-44.9, adult acute October 22, 2024 4:38am Nausea & vomiting acute October 222024 4:38am Pancreatic cyst acute September 4:38am CKD stage 3a, GFR 45-59 ml/min chron ic October 22, 2024 4:38am [facility] Work Phone: [phone]) 437-874503-06-2025 [address] [facility] Medical Records Department [address] [place] [address] History & Physical Exam 07/04/24 0957 MR#: [id number] Acct: [id number] Name: FRAN PAREKH Rep #:[id number] : 1945 78 From: Alex Sher DO PCP: Dr. Salvador Del Rosario MD Status :REG [facility] Location: [address] HPI - General General Date of Admission: 07/04/24 Date of Service: 07/04/24 Chief Complaint: Biliary stent removal HPI Narrative FRAN PAREKH, is a 78 M who presents for ERCP with stent removal. [facility] hospitalization 03.26.24 - 03.28.24 dizziness - consulted [...] know when his stent will be removed. [facility] Medical History Carpal tunnel syndrome on both sides Cancer Wears glasses Thyroid disease Shingles Inguinal hernia Cardiology follow-up encounter History of stress test Choledocholithiasis Current use of piece marker small arms 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 Elevated liver enzymes Pancreatic mass High cholesterol Hx of gastroesophageal reflux (GERD) Hypothyroidism Hypertension Home Medications ?Medication ?Instructions ?Recorded ?Last Taken ?Type lisinopril 40 mg tablet 40 mg PO DAILY blood pressur e 01/31/13 07/03/24 History atorvastatin 40 mg tablet 40 mg PO QHS cholesterol #90 05/08/17 03/05/25 Rx TABLETS gabapentin 300 mg capsule 300 [...] Cosigner Signature (if applicable): CC: Dr. Salvador Del Rosario MD; Alex Sher, DO~ Signed [facility]03-06-2025 [facility]03-06-2025 Consult note [facility] Medical Records Department [address] [place] [address] Pre-Anesthesia Evaluation 07/04/24 0921 MR#: [id number] Acct: [id number] Name: FRAN PAREKH Rep #:[id number] : 1945 78 From: Abundio Merrill MD PCP: Dr. Salvador Del Rosario MD Status :REG [facility] Y Race: C Location: [place] [address] ASA Classification* ASA Classification ASA Classification: 3 [...] Procedure(s): ERCP Anesthesia History Anesthesia History - edge plugger: Anesthesia History - edge plugger Hx Hospitalization Yes: [facility]- ERCP 03/24. 07/02/24 14:53 Any Problems With [...] take am of surgery PONV PONV - edge plugger: PONV - edge plugger Female No 07/02/24 14:53 HX of Motion [...] 07/04/24 08:49 Respiratory Assessment Respiratory Assessment - edge plugger: Respiratory Tract Infection Hx - edge plugger Hx Respiratory Tract Infection No 07/02/24 14:53 STOP Sleep Apnea STOP Sleep Apnea - edge plugger: STOP Sleep Apnea - edge plugger Hx Hypertension Yes: CONTROLLED WITH MEDS 07/02/24 [...] 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 Use History - edge plugger: Tobacco Use History - edge plugger Tobacco Use Smoking Status Never smoker 07/02/24 14:53 Hx Tobacco Use No 07/02/24 14:53 Years Smoking Packs Smoked per Day Smoking Cessation Date was within the last 15 years Hx Smoking Cessation Date Hx Smoking Cessation Counseling Hematologic Medial History Hematologic Hx - edge plugger: Hematologic 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 Abundio Merrill MD) Carpal tunnel syndrome on both sides Cancer Wears glasses Thyroid disease Shingles Inguinal hernia Cardiology follow-up encounter History of stress test Choledocholithiasis Current use of piece marker small arms 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 Elevated liver enzymes Pancreatic mass High [...] MD Cosigner Signature: Date CC: ~ Signed [facility]02-28-2025 Telephone encounter Note* Telephone Encounter - [facility] - 06/28/2024 11:06 AM EST Patient rescheduled on 10/21/2024. [facility]02-28-2025 Miscellaneous Notes* Telephone Encounter - [facility] - 06/28/2024 11:06 AM EST Patient rescheduled on 10/21/2024. * Telephone Encounter - [facility] - 06/24/2024 2:14 PM EST Called patient to reschedule 10/22/[address] Burrows, 1st attempt, left . Please offer virtual appointment at [facility] or [facility]. documented in [facility] Telephone encounter Note * Telephone Encounter - [facility] - 06/24/2024 2:14 PM EST Called patient to reschedule 10/22/[address] Burrows, 1st attempt, left . Please offer virtual appointment at [facility] or [facility]. [facility]01-22-2025 Telephone encounter Note* Telephone Encounter - Kulwinder Whelan RN - 05/22/2024 6:17 PM EST Levothyroxine taken care of by PCP. PCP requests that jailkeeper Dr. Burrows continue to prescribe pt's Eliquis. Pt would like a 90 day supply sent in to [facility]. Order pended for Eliquis for 90 day supply and routed to Dr. Burrows. [facility]01-22-2025 Miscellaneous Notes* Telephone Encounter - Kulwinder Whelan RN - 05/22/2024 6:17 PM EST Levothyroxine taken care of by PCP. PCP requests that jailkeeper Dr. Burrows continue to prescribe pt's Eliquis. Pt would like a 90 day supply sent in to [facility]. Order pended for Eliquis for 90 day supply and routed to Dr. Burrows. * Telephone Encounter - Leonila Winslow LPN - 05/22/2024 11:35 AM EST .Detailed VM left on pt's identified voicemail of information below. Leonila Winslow LPN * Telephone Encounter - Agnes Del Rosario MD - 05/21/2024 12:40 PM EST Rx sent for synthroid. Needs to get Eliquis from prescribing physician. * Telephone Encounter - Kulwinder Whelan RN - 05/21/2024 9:14 AM EST Pt is on Eliquis for hx of PE. A jailkeeper Dr. Victor Manuel Burrows, put pt on this when he was hospitalized for the PEs. Pt does follow up with him-has virtual visit in September. Pt is aware that is the prescribing provider but pt was wondering if Dr. Del Rosario would take over prescribing it? If Dr. Del Rosario feels pt should continue to get medication from jailkeeper, please call pt back and let him know that. Also please send the refill request for the Eliquis to Dr. Burrows. The patient has been identified by name [...] DAY ON AN EMPTY STOMACH FOR THYROID Kulwinder Whelan RN May 21, 2024 9:14 AM documented in [facility]01-[facility]-2025 Telephone encounter Note * Telephone Encounter - Leonila Winslow LPN - 05/22/2024 11:35 AM EST .Detailed VM left on pt's identified voicemail of information below. Leonila Winslow LPN [facility]01-21-2025 Telephone encounter Note* Telephone Encounter - Agnes Del Rosario MD - 05/21/2024 12:40 PM EST Rx sent for synthroid. Needs to get Eliquis from prescribing physician. [facility]01-21-2025 Telephone encounter Note* Telephone Encounter - Kulwinder Whelan RN - 05/21/2024 9:14 AM EST Pt is on Eliquis for hx of PE. A jailkeeper Dr. Victor Manuel Burrows, put pt on this when he was hospitalized for the PEs. Pt does follow up with him-has virtual visit in September. Pt is aware that is the prescribing provider but pt was wondering if Dr. Del Rosario would take over prescribing it? If Dr. Del Rosario feels pt should continue to get medication from jailkeeper, please call pt back and let him know that. Also please send the refill request for the Eliquis to Dr. Burrows. The patient has been identified by name [...] DAY ON AN EMPTY STOMACH FOR THYROID Kulwinder Whelan RN May 21, 2024 9:14 AM [facility]12-13-2024 Telephone encounter Note* Telephone Encounter - Agustín [...] Monroy RN April 12, 2024 2:25 PM [facility]12-13-2024 Miscellaneous Notes* Telephone Encounter - Agustín Monroy [...] 12, 2024 2:25 PM documented in this encounterUpper [facility] Center12-09-2024 NoteHNO ID: [id number] Author: MITCHEL WALTERS RN Service: ? Author Type: Registered Nurse Type: Progress Notes Filed: 04/08/2024 14:15 Note Text: Transitional Care Management (TCM) Follow-Up Note PCP Update / Actionable Items N/A - No specialty updates needed Patient Source: Ibd-hg-Uwtxodl (OON) Discharge Outreach Summary: Pt states eating and drinking well. Has f/u with Dr. Sher 04/16 Completed antibiotic therapy. States anxious to discuss stent placement, what happened with testing at [facility]. Patient discharged from [facility] Discharge date: 03/28/24 Admitted for: Abdominal pain [...] Mitchel Walters RN April 08, 2024 2:05 [facility]12-09-2024 History of Present illness Narrative* Mitchel Walters RN - 04/08/2024 2:04 PM EST Transitional Care Management (TCM) Follow-Up Note PCP Update / Actionable Items N/A - No specialty updates needed Patient Source: Xml-ke-Epniezi (OON) Discharge Outreach Summary: Pt states eating and drinking well. Has f/u with Dr. Sher 04/16 Completed antibiotic therapy. States anxious to discuss stent placement, what happened with testing at [facility]. Patient discharged from [facility] Discharge date: 03/28/24 Admitted for: Abdominal pain [...] 08, 2024 2:05 PM documented in this encounterUpper Valley Medical Center12-09-2024 NotePatient Outreach (AMBCMG) IGLESIAFRAN ([id number]) 1945 Date Time Provider Department 04/08/24 MITCHEL WALTERS [facility] [place] During your visit today, we recorded the following information about you: Mitchel Walters RN 04/08/2024 2:15 PM Signed Transitional Care Management (TCM) Follow-Up Note PCP Update / Actionable Items N/A - No specialty updates needed Patient Source: Ubu-dz-Lhdvzca (OON) Discharge Outreach Summary: Pt states eating and drinking well. Has f/u with . Friend 04/16 Completed antibiotic therapy. States anxious to discuss stent placement, what happened with testing at [facility]. Patient discharged from [facility] Discharge date: 03/28/24 Admitted for: Abdominal pain [...] hour before dental procedure. - CPAP AutoPAP [id number]. Mask per preference, tubing, filters, humidity. Lifetime Supplies. Dx: G47.33. Fax 30 day compliance report to [phone]. - CPAP Please provide mask fitting. 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 Author Type: Nurse Practitioner Type: Progress Notes Filed: 04/01/2024 14:48 Note Text: 04/01/2024 Patient presents with: Hospital F/U: [facility] 03/26-03/28 for pancreatitis SUBJECTIVE: This is a 78 year old that is here today for Above Complaints. HOSPITAL/ER FOLLOW UP: Reason for visit: abdominal pain, nausea, vomiting and dizziness Which facility: [facility] Date of visit: 03/26/2024-03/28/2024 Diagnosis: choledocholithiasis Testing [...] Home Visit Referral Source of Stratification: TCM [facility] Hospital Admission Status: Discharged Readmission Risk Score: n/a Patient's zip code: [address] Is zip code within program service area: No Patient meets program referral criteria: No Patient does not qualify for High Risk TCM Home Visit program due to: Patient's zip code is not located within program service area Readmission Risk Score does not meet criteria Disposition: Patient does not qualify for HRTIC, will provide TCM outreach follow-up for 30-days Patient Source: Oup-tv-Xyrphrs (OON) Discharge Outreach Summary: Pt reports he is feeling well, caught up on sleep last night. States eating and drinking OK . No additional episodes of nausea, vomiting or abdominal pain , fevers, chills since dc. Started Omnicef as rx. Pt reports LVM for f/u with Dr. iNkky DSOUZA and has f/u with PCP office 04/01 Patient discharged from [facility] Discharge date: 03/28/24 Admitted for: Abdominal pain Readmission Risk: n/a Value-Based Contract: ACO Contact: Contact made with patient: Yes Hi, my name is Mitchel Walters RN and I am calling from the [facility] on behalf of your Primary Care Provider, Agnes Del Rosario MD. I understand you were recently in [...] like to speak with a social work produce production team member to help give you support for any [...] I will send your request to a district director who will contact and assist you with [...] needed upon discharge. Targets (more content not included)...[facility]12-02-2024 History of Present illness Narrative* Marilia Orozco APRN.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 - 04/01/2024 11:49 AM EST 04/01/2024 Patient presents with: Hospital F/U: [facility] 03/26-03/28 for pancreatitis SUBJECTIVE: This is a 78 year old that is here today for Above Complaints. HOSPITAL/ER FOLLOW UP: Reason for visit: abdominal pain, nausea, vomiting and dizziness Which facility: [facility] Date of visit: 03/26/2024-03/28/2024 Diagnosis: choledocholithiasis Testing [...] Readmission Risk Score: n/a Patient's zip code: [address] Is zip code within program service area: No Patient meets program referral criteria: No Patient does not qualify for High Risk TCM Home Visit program due to: Patient's zip code is not located within program service area Readmission Risk Score does not meet criteria Disposition: Patient does not qualify for HRTIC, will provide TCM outreach follow-up for 30-days Patient Source: Uyt-fq-Bvxzkhd (OON) Discharge Outreach Summary: Pt reports he is feeling well, caught up on sleep last night. States eating and drinking OK . No additional episodes of nausea, vomiting or abdominal pain , fevers, chills since dc. Started Omnicef as rx. Pt reports LVM for f/u with Dr. Nikky DSOUZA and has f/u with PCP office 04/01 Patient discharged from [facility] Discharge date: 03/28/24 Admitted for: Abdominal pain Readmission Risk: n/a Value-Based Contract: ACO Contact: Contact made with patient: Yes Hi, my name is Mitchel Walters RN and I am calling from the [facility] on behalf of your Primary Care Provider, Agnes Del Rosario MD. I understand you were recently in [...] like to speak with a social work produce production team member to help give you support for any [...] I will send your request to a district director who will contact and assist you with [...] of skin of nose Dr. Chowdary in [place] Stage 3a chronic kidney disease (HCC) Venous [...] not taking: Reported on 12/19/2023) CPAP AutoPAP [id number]. Mask per preference, tubing, filters, humidity. Lifetime Supplies. Dx: G47.33. Fax 30 day compliance report to [phone]. CPAP Please provide mask fitting. Pt with [...] 15 minutes at a time Marilia Orozco APRN.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 Prescription instructions reviewed with patient as applicable. Patient advised if symptoms do not improve or if symptoms worsen sooner, to contact their primary care physician. Potential red flag symptoms discussed with the patient. Reviewed appropriate action plan to take if red flag symptoms occur. Patient agreeable to treatment plan. documented in this encounterUpper [facility] Center11-29-2024 NoteHNO ID: [id number] Author: MITCHEL WALTERS RN Service: ? Author Type: Registered Nurse Type: Progress Notes Filed: 03/29/2024 10:35 Note Text: Transition Care Management (TCM) Initial Outreach PCP Update / Actionable Items HRTIC TCM Home Visit Referral Source of Stratification: TCM [facility] Hospital Admission Status: Discharged Readmission Risk Score: n/a Patient's zip code: [address] Is zip code within program service area: No Patient meets program referral criteria: No Patient does not qualify for High Risk TCM Home Visit program due to: Patient's zip code is not located within program service area Readmission Risk Score does not meet criteria Disposition: Patient does not qualify for HRTIC, will provide TCM outreach follow-up for 30-days Patient Source: Zgd-ud-Saxdiev (OON) Discharge Outreach Summary: Pt reports he is feeling well, caught up on sleep last night. States eating and drinking OK . No additional episodes of nausea, vomiting or abdominal pain , fevers, chills since dc. Started Omnicef as rx. Pt reports LVM for f/u with Dr. Nikky DSOUZA and has f/u with PCP office 04/01 Patient discharged from [facility] Discharge date: 03/28/24 Admitted for: Abdominal pain Readmission Risk: n/a Value-Based Contract: ACO Contact: Contact made with patient: Yes Hi, my name is Mitchel Walters RN and I am calling from the [facility] on behalf of your Primary Care Provider, Agnes Del Rosario MD. I understand you were recently in [...] like to speak with a social work produce production team member to help give you support for any [...] I will send your request to a district director who will contact and assist you with [...] Mitchel Walters RN March 29, 2024 10:22 [facility]11-29-2024 History of Present illness Narrative* Mitchel Walters RN - 03/29/2024 10:17 AM EST Transition Care Management (TCM) Initial Outreach PCP Update / Actionable Items HRTIC TCM Home Visit Referral Source of Stratification: TCM [facility] Hospital Admission Status: Discharged Readmission Risk Score: n/a Patient's zip code: [address] Is zip code within program service area: No Patient meets program referral criteria: No Patient does not qualify for High Risk TCM Home Visit program due to: Patient's zip code is not located within program service area Readmission Risk Score does not meet criteria Disposition: Patient does not qualify for HRTIC, will provide TCM outreach follow-up for 30-days Patient Source: Wme-xq-Qbgfhqd (OON) Discharge Outreach Summary: Pt reports he is feeling well, caught up on sleep last night. States eating and drinking OK . No additional episodes of nausea, vomiting or abdominal pain , fevers, chills since dc. Started Omnicef as rx. Pt reports LVM for f/u with Dr. Nikky DSOUZA and has f/u with PCP office 04/01 Patient discharged from [facility] Discharge date: 03/28/24 Admitted for: Abdominal pain Readmission Risk: n/a Value-Based Contract: ACO Contact: Contact made with patient: Yes Hi, my name is Mitchel Wlaters RN and I am calling from the [facility] on behalf of your Primary Care Provider, Agnes Del Rosario MD. I understand you were recently in [...] like to speak with a social work produce production team member to help give you support for any [...] I will send your request to a district director who will contact and assist you with [...] 29, 2024 10:22 AM documented in this encounterUpper [facility] Center11-29-2024 NotePatient Outreach (AMBC[facility]) FRAN PAREKH ([id number]) 1945 M Date Time Provider Department 03/29/24 MITCHEL WALTERS During your visit today, we recorded the following information about you: Mitchel Walters RN 03/29/2024 10:35 AM Signed Transition Care Management (TCM) Initial Outreach PCP Update / Actionable Items HRTIC TCM Home Visit Referral Source of Stratification: [facility] Hospital Admission Status: Discharged Readmission Risk Score: n/a Patient's zip code: [address] Is zip code within program service area: No Patient meets program referral criteria: No Patient does not qualify for High Risk TCM Home Visit program due to: Patient's zip code is not located within program service area Readmission Risk Score does not meet criteria Disposition: Patient does not qualify for HRTIC, will provide TCM outreach follow-up for 30-days Patient Source: Xfv-tc-Zbnkddh (OON) Discharge Outreach Summary: Pt reports he is feeling well, caught up on sleep last night. States eating and drinking OK . No additional episodes of nausea, vomiting or abdominal pain , fevers, chills since dc. Started Omnicef as rx. Pt reports LVM for f/u with Dr. Nikky DSOUZA and has f/u with PCP office 04/01 Patient discharged from [facility] Discharge date: 03/28/24 Admitted for: Abdominal pain Readmission Risk: n/a Value-Based Contract: ACO Contact: Contact made with patient: Yes Hi, my name is Mitchel Walters RN and I am calling from the [facility] on behalf of your Primary Care Provider, Agnes Del Rosario MD. I understand you were recently in [...] like to speak with a social work produce production team member to help give you support for any [...] I will send your request to a district director who will contact and assist you with [...] for Visit: Transition Of Care [4074] Cmt: TCM / [facility] 03/28/24 Prescriptions as of 03/29/2024 - cefdinir (OMNICEF) 3 (more content not included)...[facility] 03-28-2024 [facility]11-26-2024 Evaluation note* Diagnosis Onset Date Resolution Status Admit Date Choledocholithiasis resolved Novem 2023 6:13am Nausea and vomiting resolved Novem 2023 6:13am Current use of snf 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 inactive March 26, 2 024 6:13am Elevated liver enzymes inactive No vember 2023 6:13am Pancreatic mass inactive March 26, 2024 6:13am Choledocholithiasis acute Decem 2023 7:14am 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, 2024 7:14am Pancreatitis acute March 7:14am 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 8:24am Choledocholithiasis acute July 04, 2024 8:24am [facility] Work Phone: [phone] 208-203811-18-2024 Telephone encounter Note* Telephone Encounter - Malachi [...] Castillo RN March 18, 2024 8:04 AM [facility]11-18-2024 Miscellaneous Notes* Telephone Encounter - Malachi Castillo [...] 18, 2024 8:04 AM documented in this encounterUpper Valley [facility] Center10-25-2024 History of Present illness Narrative* Karen Wing, RT(R) - 02/23/2024 10:10 AM EDT Radiology [...] PATIENT PRESENTS WITH AN IMPLANTABLE OR ATTACHED LOAD BUILDER: No RADIOLOGY DEPARTMENT: General X-ray: Exam(s) Completed: Spine X-Ray(s): Cervical AP / LAT Upper Extremity X-Ray(s): Shoulder, AP / TRUE AP left PERIPHERAL IV DATA: Not applicable SIGNED BY: RT Robby(R) February 23, 2024 10:15 AM documented in this encounterUpper Valley Medical Center10-25-2024 NoteHNO ID: [id number] Author: KAREN WING RT(R) Service: Radiology Author [...] PATIENT PRESENTS WITH AN IMPLANTABLE OR ATTACHED LOAD BUILDER: No RADIOLOGY DEPARTMENT: General X-ray: Exam(s) Completed: Spine X-Ray(s): Cervical AP / LAT Upper Extremity X-Ray(s): Shoulder, AP / TRUE AP left PERIPHERAL IV DATA: Not applicable SIGNED BY: KAYY Bustamante) February 23, 2024 10:15 [facility]10-23-2024 Telephone encounter Note* Telephone Encounter - [...] Bowen RN February 21, 2024 8:32 AM [facility]10-23-2024 Miscellaneous Notes* Telephone Encounter - Carli Bowen [...] 21, 2024 8:32 AM documented in this encounterUpper Valley Medical Center10-16-2024 NoteHNO ID: [id number] Author: MARILIA OROZCO APRN.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 Service: ? Author Type: Nurse Practitioner Type: [...] flexion ALLEVIATING FEATURES: tylenol Hurt it playing racRespectanceall years ago. Denies past surgeries,extremity numbness, tingling, [...] of skin of nose Dr. Chowdary in [place] Stage 3a chronic kidney disease (HCC) Venous [...] not taking: Reported on 12/19/2023) CPAP AutoPAP [id number]. Mask per preference, tubing, filters, humidity. Lifetime Supplies. Dx: G47.33. Fax 30 day compliance report to [phone]. CPAP Please provide mask fitting. Pt with [...] Depression Screening Never done (more content not included)...[facility]10-16-2024 History of Present illness Narrative* PodlogarMarilia APRN.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 - 02/14/2024 11:34 AM EDT 02/14/2024 Patient presents with: Follow Up: Right leg swelling Pain: Left shoulder/upper back into neck pain SUBJECTIVE: This is a 78 year old that is here today for Above Complaints.. ONSET: Monday afternoon after lifting boxes LOCATION: left shoulder/back/neck DURATION: constant CHARACTERISTICS: oliver AGGRAVATING FEATURES: neck flexion ALLEVIATING FEATURES: tylenol Hurt it playing [email or web address] years ago. Denies past surgeries,extremity numbness, tingling, weakness, swelling or redness Right leg still with swelling. Wants to make sure he does not have any cellulitis. Denies fevers, chills, pain,increasing redness, increased swelling, warmth or red streaking PAST MEDICAL HISTORY Diagnosis Date Angina at rest ([facility]) 09/14/2016 Arthritis of hip 06/08/2018 R hip, [...] of skin of nose Dr. Chowdary in [place] Stage 3a chronic kidney disease (HCC) Venous [...] not taking: Reported on 12/19/2023) CPAP AutoPAP [id number]. Mask per preference, tubing, filters, humidity. Lifetime Supplies. Dx: G47.33. Fax 30 day compliance report to [phone]. CPAP Please provide mask fitting. Pt with [...] due - ICD9: V05.9, ICD10: Z23 - PFIZER-BIONTECH COVID-19 VACCINE AGE 12+ YR (COMIRNATY) - INFLUENZA VACCINE, PRSV FREE, AGE 65+ YR, HIGH DOSE, TRIVALENT (FLUZONE HIGH-DOSE) - RSV PRINTED PHARMACY INSTRUCTIONS 3. Right leg swelling - ICD9: 729.81, ICD10: M79.89 - DVT already ruled out - possibly lymph edema or related to knee injury - recommend compression hose and elevation - declined referral to vascular Marilia Podlogar, 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 Prescription instructions reviewed with patient as applicable. [...] Level: 4 - Moderate documented in this encounterUpper Valley Medical Center10-10-2024 Telephone encounter Note * Telephone Encounter - Sissy Abbott LPN - 02/08/2024 9:58 AM EDT Pt calling for an appt to hillary right lower leg cellulitis. Pt states area has improved, only has slight redness & he would like it recked. Pt reports pain is gone. Pt requesting appt with [employer] Administrator Podlogar. 1st avial with her is 02/14/24, pt accepted appt. Sooner appt offered with a different provider, pt declined. Pt instructed if area on leg starts to get worse, more red, painful etc to call for a sooner appt, pt voiced understanding. Pt also requesting flu & covid vaccine at same appt. Sissy Abbott LPN [facility]10-10-2024 Miscellaneous Notes* Telephone Encounter - Sissy Abbott LPN - 02/08/2024 9:58 AM EDT Pt calling for an appt to hillary right lower leg cellulitis. Pt states area has improved, only has slight redness & he would like it recked. Pt reports pain is gone. Pt requesting appt with [employer] Administrator Podlogar. 1st avial with her is 02/14/24, pt accepted appt. Sooner appt offered with a different provider, pt declined. Pt instructed if area on leg starts to get worse, more red, painful etc to call for a sooner appt, pt voiced understanding. Pt also requesting flu & covid vaccine at same appt. Sissy Abbott LPN documented in this encounterUpper Valley Medical Center09-30-2024 NoteHNO ID: [id number] Author: MARILIA OROZCO APRN.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 Service: ? 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 PROMINENT PREPATELLAR BURSITIS. MILD OSTEOARTHRITIS. Software Packager: WILNER Transcribe Date/Time: Jan 26 2024 1:16P [...] of skin of nose Dr. Chowdary in [place] Stage 3a chronic kidney disease (HCC) Venous [...] for 6 days. 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 PROMINENT PREPATELLAR BURSITIS. MILD OSTEOARTHRITIS. Software Packager: WILNER Transcribe Date/Time: Jan 26 2024 1:16P [...] of skin of nose Dr. Chowdary in [place] Stage 3a chronic kidney disease (HCC) Venous [...] not taking: Reported on 12/19/2023) CPAP AutoPAP [id number]. Mask per preference, tubing, filters, humidity. Lifetime Supplies. Dx: G47.33. Fax 30 day compliance report to [phone]. CPAP Please provide mask fitting. Pt with [...] ER with red flag symptoms Marilia Orozco APRN.CNP Prescription instructions reviewed with [...] Level: 4 - Moderate documented in this encounterUpper Valley Medical Center09-27-2024 History of Present illness Narrative* Angi Tipton MRI Tech - 01/26/2024 11:30 AM EDT Radiology Service [...] PATIENT PRESENTS WITH AN IMPLANTABLE OR ATTACHED LOAD BUILDER: No RADIOLOGY DEPARTMENT: MR; Exam(s) Completed: Lower MSK: Knee, right PERIPHERAL IV DATA: Not applicable SIGNED BY: DEEPALI Page January 26, 2024 11:39 AM documented in this encounterUpper Valley Medical Center09-27-2024 NoteHNO ID: [id number] Author: ANGI TIPTON MRI Tech Service: Radiology Author Type: Technologist [...] PATIENT PRESENTS WITH AN IMPLANTABLE OR ATTACHED LOAD BUILDER: No RADIOLOGY DEPARTMENT: MR; Exam(s) Completed: Lower MSK: Knee, right PERIPHERAL IV DATA: Not applicable SIGNED BY: Angi Tipton, warehouse shipping receiving clerk January 26, 2024 11:39 [facility]09-25-2024 NoteHNO ID: [id number] Author: MARILIA OROZCO APRN.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 Service: ? Author Type: Nurse Practitioner Type: [...] of skin of nose Dr. Chowdary in [place] Stage 3a chronic kidney disease (HCC) Venous [...] not taking: Reported on 12/19/2023) CPAP AutoPAP [id number]. Mask per preference, tubing, filters, humidity. Lifetime Supplies. Dx: G47.33. Fax 30 day compliance report to [phone]. CPAP Please provide mask fitting. Pt with [...] anterior/posterior drawer test. Signi (more content not included)...[facility] History of Present illness Narrative* Marilia Orozco APRN.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 - 01/24/2024 12:05 PM EDT 01/24/2024 Patient [...] of skin of nose Dr. Chowdary in [place] Stage 3a chronic kidney disease (HCC) Venous [...] not taking: Reported on 12/19/2023) CPAP AutoPAP [id number]. Mask per preference, tubing, filters, humidity. Lifetime Supplies. Dx: G47.33. Fax 30 day compliance report to [phone]. CPAP Please provide mask fitting. Pt with [...] - MRI KNEE WO IVCON RIGHT Marilia Orozco APRN.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 Prescription instructions reviewed with patient as applicable. [...] Level: 4 - Moderate documented in this encounterUpper Valley Medical Center09-23-2024 Telephone encounter Note * Telephone Encounter - Eunice Bruce LPN - 01/22/2024 1:30 PM EDT Patient telephoned and notified. Eunice Bruce LPN [facility]09-23-2024 Miscellaneous Notes* Telephone Encounter - Eunice Bruce LPN - 01/22/2024 1:30 PM EDT Patient telephoned and notified. Eunice Bruce LPN * Telephone Encounter - Cassidy Cantu MA - 01/22/2024 10:27 AM EDT ----- Message from Agnes Del Rosario MD sent at 01/22/2024 8:34 AM EDT ----- US negative for superficial or deep clot. documented in this encounterUpper Valley Medical Center09-23-2024 NoteHNO ID: [id number] Author: AGNES DEL ROSARIO MD Service: ? Author Type: Physician Type: [...] of skin of nose Dr. Chowdary in [place] Stage 3a chronic kidney disease (HCC) Venous insufficiency Previous Surgical History PAST SURGICAL HISTORY Procedure Laterality Date ARTHRP ACETBLR/PROX FEM PROSTC AGRFT/ALGRFT Right 06/03/2019 Hip replacement, total COLONOSCOPY FLX DX W/COLLJ SPEC WHEN PFRMD 04/21/11 Repeat 10 [id number] LASER GREENLIGHT prostate, [place] NEUROPLASTY AND/TRANSPOS MEDIAN [...] AN EMPTY STOMACH FOR THYROID CPAP AutoPAP [id number]. Mask per preference, tubing, filters, humidity. Lifetime Supplies. Dx: G47.33. Fax 30 day compliance report to [phone]. CPAP Please provide mask fitting. Pt with [...] 10 mL (BD POSIFLUSH) (more content not included)...[facility]09-23-[facility] History of Present illness Narrative* Agnes Del Rosario MD - 01/22/2024 11:37 AM EDT Chief [...] of skin of nose Dr. Chowdary in [place] Stage 3a chronic kidney disease (HCC) Venous insufficiency Previous Surgical History PAST SURGICAL HISTORY Procedure Laterality Date ARTHRP ACETBLR/PROX FEM PROSTC AGRFT/ALGRFT Right 06/03/2019 Hip replacement, total COLONOSCOPY FLX DX W/COLLJ SPEC WHEN PFRMD 04/21/11 Repeat 10 [id number] LASER GREENLIGHT prostate, [place] NEUROPLASTY &/TRANSPOS MEDIAN [...] AN EMPTY STOMACH FOR THYROID CPAP AutoPAP [id number]. Mask per preference, tubing, filters, humidity. Lifetime Supplies. Dx: G47.33. Fax 30 day compliance report to [phone]. CPAP Please provide mask fitting. Pt with [...] Abs Lymph 1.00 - 4.00 k/uL 2.23 Cherokee% % 10.0 Abs Cherokee <0.87 k/uL 1.03 (H) Eosin% % 1.9 [...] - DOXYCYCLINE HYCLATE 100 MG TABLET Agnes Del Rosario MD documented in this encounterUpper Valley Medical Center09-23-2024 Telephone encounter Note * Telephone Encounter - Cassidy Cantu MA - 01/22/2024 10:27 AM EDT ----- Message from Agnes Del Rosario MD sent at 01/22/2024 8:34 AM EDT ----- US negative for superficial or deep clot. [facility]09-20-2024 NoteHNO ID: [id number] Author: MARILIA OROZCO APRN.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 Service: ? Author Type: Nurse Practitioner Type: [...] ice RADIATION: knee down to landry Saw jailkeeper yesterday who ordered an xray which has [...] of skin of nose Dr. Chowdary in [place] Stage 3a chronic kidney disease (HCC) Venous [...] not taking: Reported on 12/19/2023) CPAP AutoPAP [id number]. Mask per preference, tubing, filters, humidity. Lifetime Supplies. Dx: G47.33. Fax 30 day compliance report to [phone]. CPAP Please provide mask fitting. Pt with [...] on 10/29/2024 BP Controlled (more content not included)...[facility] History of Present illness Narrative* PodlogarMarilia APRN.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 - 01/19/2024 9:41 AM EDT 01/19/2024 Patient [...] ice RADIATION: knee down to landry Saw jailkeeper yesterday who ordered an xray which has [...] of skin of nose Dr. Chowdary in [place] Stage 3a chronic kidney disease (HCC) Venous [...] not taking: Reported on 12/19/2023) CPAP AutoPAP [id number]. Mask per preference, tubing, filters, humidity. Lifetime Supplies. Dx: G47.33. Fax 30 day compliance report to [phone]. CPAP Please provide mask fitting. Pt with [...] done LDL Cholesterol due on 11/03/2023 Covid-19 Vaccine(2022- season) due on 12/31/2023 Influenza Vaccine(1) due [...] to ER with red flag symptoms Marilia Podlogar, 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 Prescription instructions reviewed with patient as applicable. Patient advised if symptoms do not improve or if symptoms worsen sooner, to contact their primary care physician. Potential red flag symptoms discussed with the patient. Reviewed appropriate action plan to take if red flag symptoms occur. Patient agreeable to treatment plan. documented in this encounterUpper Valley Medical Center09-19-2024 History of Present illness Narrative* Karen Wing [...] PATIENT PRESENTS WITH AN IMPLANTABLE OR ATTACHED LOAD BUILDER: No RADIOLOGY DEPARTMENT: General X-ray: Exam(s) Completed: Lower Extremity X- Ray(s): Knee, AP / Lat / Tunne / Merchant Right and Wt. Bearing PERIPHERAL IV DATA: Not applicable SIGNED BY: KAYY Bustamante) January 18, 2024 12:17 PM documented in this encounterUpper Valley Medical Center09-19-2024 NoteHNO ID: [id number] Author: KAREN WING RT (R) Service: Radiology Author Type: Technologist Type: Progress [...] PATIENT PRESENTS WITH AN IMPLANTABLE OR ATTACHED LOAD BUILDER: No RADIOLOGY DEPARTMENT: General X-ray: Exam(s) Completed: Lower Extremity X-Ray(s): Knee, AP / Lat / Tunne / Merchant Right and Wt. Bearing PERIPHERAL IV DATA: Not applicable SIGNED BY: RT Robby(R) January 18, 2024 12:17 [facility]09-19-2024 NoteHNO ID: [id number] Author: JOLEEN MUNOZ APRN.CNP Service: ? Author Type: Nurse Practitioner [...] will be corrected patient was not seen here.[facility] History of Present illness Narrative* Joleen Munoz APRN.CNP - 01/18/2024 12:12 PM EDT Patient is seen by his physician. The physician already placed orders for x-ray and orthopedics consult. Confusion at the desk patient accidentally got checked in for a full visit. Patient is not here for full visit. Patient is just here for his x-ray. This will be corrected patient was not seen here. documented in this encounterUpper Valley Medical Center09-19-2024 NoteHNO ID: [id number] Author: VICTOR MANUEL BURROWS DO Service: ? Author Type: Physician Type: Progress Notes Filed: 01/18/2024 09:33 Note Text: PULMONARY HYPERTENSION CLINIC Initial Visit January 18, 2024 I had the pleasure of seeing Fran Parekh in consultation at the request of for Pulmonary Hypertension. Summary of this visit and my recommendations will be relayed to the referring physician by way of electronic communication or by mail. PCP: Agnes Del Rosario MD Referring Provider: Subjective: I had the [...] STOMACH FOR THYROIDDisp: 90 tabletRfl: 3 CPAPAutoPAP [id number]. Mask per preference, tubing, filters, humidity. Lifetime Supplies. Dx: G47.33. Fax 30 day compliance report to [phone].Disp: 1 EachRfl: 999 CPAPPlease provide mask fitting. [...] of skin of nose Dr. Chowdary in [place] Stage 3a chronic kidney disease (HCC) Venous insufficiency PAST SURGICAL HISTORY Procedure Laterality Date ARTHRP ACETBLR/PROX FEM PROSTC AGRFT/ALGRFT Right 06/03/2019 Hip replacement, total COLONOSCOPY FLX DX W/COLLJ SPEC WHEN PFRMD 04/21/11 Repeat 10 [id number] LASER GREENLIGHT prostate, [place] NEUROPLASTY AND/TRANSPOS MEDIAN [...] (Myocardial infarction) Maternal Grandfather (more content not included)...[facility] [id number] History of Present illness Narrative* TinevangelistaamericoanujVictor Manuel, - 01/18/2024 9:06 AM EDT Images from the original note were not included. PULMONARY HYPERTENSION CLINIC Initial Visit January 18, 2024 I had the pleasure of seeing Fran Parekh in consultation at the request of for Pulmonary Hypertension. Summary of this visit and my recommendations will be relayed to the referring physician by way of electronic communication or by mail. PCP: Agnes Del Rosario MD Referring Provider: Subjective: I had the [...] STOMACH FOR THYROID^Disp: 90 tablet^Rfl: 3 CPAP^AutoPAP [id number]. Mask per preference, tubing, filters, humidity. Lifetime Supplies. Dx: G47.33. Fax 30 day compliance report to [phone].^Disp: 1 Each^Rfl: 999 CPAP^Please provide mask fitting. [...] of skin of nose Dr. Chowdary in [place] Stage 3a chronic kidney disease (HCC) Venous insufficiency PAST SURGICAL HISTORY Procedure Laterality Date ARTHRP ACETBLR/PROX FEM PROSTC AGRFT/ALGRFT Right 06/03/2019 Hip replacement, total COLONOSCOPY FLX DX W/COLLJ SPEC WHEN PFRMD 04/21/11 Repeat 10 [id number] LASER GREENLIGHT prostate, [place] NEUROPLASTY &/TRANSPOS MEDIAN [...] uU/mL HIV No results found for: HIVSCN, [id number]] Hepatitis B Surface Antigen No results found [...] red flag symptoms otherwise) SIGNATURE: Victor Manuel Burrows DO [facility] DATE of SERVICE: 01/18/2024 documented in this encounterUpper Valley Medical Center09-18-2024 NoteHNO ID: [id number] Author: YOGESH FORMAN PT Service: ? Author [...] fall risk. - Partially MET, will continue [place] in home exercise program including cardiovascular exercise. [...] Patient to be seen for Therapeutic exercise (14870), Neuromuscular re-education (52586), Therapeutic activities (46557), Self-prison management (98666), Gait Training (13372), Patient/Family/Caregiver Education, Body Mechanics Training, General Conditioning [...] Patient was educate (more content not included)... [facility]09-18-[facility] History of Present illness Narrative* Yogesh Forman, PT - 01/17/2024 10:57 PM EDT Images [...] fall risk. - Partially MET, will continue [place] in home exercise program including cardiovascular exercise. [...] Patient to be seen for Therapeutic exercise (88525), Neuromuscular re-education (82235), Therapeutic activities (48362), Self-prison management (66794), Gait Training (13637), Patient/Family/Caregiver Education, Body Mechanics Training, General Conditioning [...] 1600 Yogesh Forman PT documented in this encounterUpper Valley Medical Center09-16-2024 History of Present illness Narrative* Bruna Chowdary APRN-RUBÉN - 01/15/2024 11:00 AM EDT Subjective Fran [...] skin. 3. Multiple benign nevi Brown and pitt macules and papules with reassuring findings on dermoscopy -These lesions have benign, reassuring patterns on dermoscopy -Recommend continued self observation, and to contact the office if any changes in nevi are noticed 4. Lentigo Pitt macules -Benign appearing on exam -Reassurance, recommend observation 5. Seborrheic keratosis Stuck on, waxy macule(s)/papule(s)/plaque(s) with comedo-like openings and milia like cysts -Discussed the nature of the diagnosis -Reassurance, recommend continued observation [facility] Work Phone: 1(263) 867-697809-12-2024 Telephone encounter Note* Telephone Encounter - Michelle Stroud PSS - 01/11/2024 3:43 PM EDT CD READY FOR HEPATOLOGIST AT [facility] for pt [facility]09-12-2024 Miscellaneous Notes* Telephone Encounter - Michelle Stroud PSS - 01/11/2024 3:43 PM EDT CD READY FOR HEPATOLOGIST AT [facility] for pt * Telephone Encounter - [...] request. Harriet Grider RN documented in this encounterUpper Valley [facility] Center09-11-[facility]24 Telephone encounter Note * Telephone Encounter - Ju Cedillo RN - 01/10/2024 1:[address] Samuel has never seen this patient. Perhaps it should go to radiology or the person who ordered it? [facility]09[facility] Telephone encounter Note* Telephone Encounter - Harriet Grider RN - 01/10/2024 11:47 AM EDT Patient calling and requesting a disc for his 05/15/23 Lumbar XRAY. He is interested in getting a disc to mil Painting surgeon. Informed pt that a message would be sent to Radiology for this request. Please call patient with an update regarding this request. Harriet Grider RN [facility]09-11-2024 NoteHNO ID: [id number] Author: YOGESH FORMAN PT Service: ? Author [...] Session Stop Time : 1046 Yogesh Forman [facility]09-11-2024 History of Present illness Narrative* Yogesh Forman, [...] THERAPY PHYSICAL THERAPY TREATMENT NOTE ASSESSMENT: Fran Mueller Iglesia tolerated the session with fatigue and no [...] LEVEL OF FUNCTION: TREATMENT: Therapeutic Exercise: 1: BTC ChinaFit StepOne seat #16 resistance level 0 x6 [...] 1046 Yogesh Forman PT documented in this encounterUpper Valley Medical Center09-09-2024 Telephone encounter Note * Telephone Encounter - [...] Owen MA January 08, 2024 10:21 AM [facility]09-09-[facility]24 Miscellaneous Notes* Telephone Encounter - Amara Owen [...] Thank you. Sheyla Schneider. documented in this encounterUpper Valley Medical Center09-09-2024 NoteHNO ID: [id number] Author: SHERRELL JACKSON PT Service: ? Author [...] with balance exercises. TREATMENT: Therapeutic Exercise: 1: Cloak StepOne seat #16 resistance level 0 x6 [...] patient safety with use of gait belt. Self-Snf Management: 1: Discussed putting night lights along [...] 929 Session Stop Time : 1019 RUBENS Allred, [facility]09-09-2024 History of Present illness Narrative* Sherrell Jackson, [...] with balance exercises. TREATMENT: Therapeutic Exercise: 1: BTC ChinaFit StepOne seat #16 resistance level 0 x6 [...] patient safety with use of gait belt. Self-Snf Management: 1: Discussed putting night lights along [...] Time : 929 Session Stop Time : 1018 RUBENS Allred PT documented in this encounterUpper Valley Medical Center09-07-2024 Telephone encounter Note * Telephone Encounter - [...] found Please advise. Thank you. Sheyla Schneider. [facility]09-05-2024 NoteHNO ID: [id number] Author: YOGESH FORMAN PT Service: ? Author [...] improved ground clearance. TREATMENT: Therapeutic Exercise: 1: Cloak StepOne seat #16 resistance level 0 x6 [...] Time : 1540 Session Stop Time : 162 Yogesh Forman [facility]09-05-2024 History of Present illness Narrative* Lydia Formannt, PT - 01/04/2024 4:39 PM EDT Episode [...] improved ground clearance. TREATMENT: Therapeutic Exercise: 1: Cloak StepOne seat #16 resistance level 0 x6 [...] 1627 Yogesh Forman PT documented in this encounterUpper Valley Medical Center08-20-2024 History of Present illness Narrative* Xuan Gómez MD - 12/19/2023 2:30 PM EDT Images from the original note were not included. [facility] [place] Marianna Alonso Department of Cardiovascular Medicine SECTION OF VASCULAR MEDICINE OUTPATIENT VISIT DATE December 19, 2023 OUTPATIENT VISIT TYPE CONSULTATION Consult regarding: Hypercoagulable workup? History of saddle PE Consult requested by: Victor Manuel Burrows My final recommendations will be communicated back to the requesting physician by way of the sharedmedical record or by letter. Primary care physician: Agnes Del Rosario MD History of present illness: 78-year-old male with history of hypertension, dyslipidemia, CAD, prediabetes, MARTIN on CPAP, CKD 3a,lung nodule, pancreatic cyst central obesity, unprovoked acute bilateral pulmonary embolism 10/22/2023 (submassive, mild-moderate RV dilation, systolic septal flattening, with RVSP 86 , intermediate risk) and acute right Psv-Vyr-nddl DVT (10/23/2023) treated with medical management, and pulmonary hypertension. He was discharged on Eliquis, which currently takes. Patient follows with pulmonology (Victor Manuel Burrows DO) for pulmonary hypertension.Last visit 11/09/2023; recommended VQ scan and repeat echocardiogram. Prior to the diagnosis patient reported no hospitalizations, surgeries, long travels, immobilization or trauma. Patient's reports patient had swelling in both legs during his travel to [place] in May 2023. He had no chest discomfort or SOB. Patient adds he has had swelling in the legs ever since hip surgery in 2019. He underwent venous incompetency study in 12/2020 and found reflux in both GSV. He was recommended to wear compression stockings. Referred to vascular medicine for consideration of hypercoagulable workup History of thrombosis: as above, otherwise, History of CVA/TIA/VT: no Current or prior use of hormonal [...] before dental procedure.^Disp: 4 capsule^Rfl: 3 CPAP^AutoPAP [id number]. Mask per preference, tubing, filters, humidity. Lif[employer] Supplies. Dx: G47.33. Fax 30 day compliance report to [phone].^Disp: 1 Each^Rfl: 999 CPAP^Please provide mask fitting. 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, Stroke (HCC), [...] High Legend: (H) High (L) Low Impression/Recommendations: (Z86.718) History of venous thromboembolism (primary encounter diagnosis) (Z79.01) Current use of piece marker small arms 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 (Z68.38) BMI 38.0-38.9,adult (I27.29) Other secondary [...] 86 , intermediate risk) and acute right Bqf-Occ-zega DVT (10/23/2023), treated medically and discharged on [...] All questions answered RTC 6 mo, earlier SEAN PEPE MD CC: MD Victor Manuel Singh , documented in this encounterCleveland [id number] History of Present illness Narrative* Yogesh Forman, PT - 12/18/2023 11:37 PM EDT Images [...] second SLS to reflect decreased fall risk. [place] in home exercise program including cardiovascular exercise. [...] Planned: 16 Planned Treatment Interventions: Therapeutic exercise (72500), Neuromuscular re- education (50329), Therapeutic activities (07713), Self-prison management (01793), Gait Training (47782), Patient/Family/Caregiver Education, Body Mechanics Training, Functional training, [...] identified in hislungs. He was admitted to [facility] for 6 days and when discharged, PT was ordered for his unsteady gait. Pt denies any falls. Patient Goals: reconditioning to regain prior functional level. 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 [facility]07-29-[facility]24 Miscellaneous Notes* Telephone Encounter - Halie Perez LPN - 11/27/2023 11:10 AM EDT Patient appt was moved to a sooner date. * Telephone Encounter - Halie Perez LPN - 11/27/2023 10:11 AM EDT Message forwarded to the [facility] clerical pool for assistance with scheduling. * Telephone Encounter - Anitra Fong - 11/27/2023 9:59 AM EDT Patient called and stated that his jailkeeper wants him to be seen [facility] and asked if Dr. Pepe can see him sooner than March. Please advise documented in this encounterUpper Valley Medical Center07-29-2024 Telephone encounter Note * Telephone Encounter - Halie Perez LPN - 11/27/2023 10:11 AM EDT Message forwarded to the [facility] clerical pool for assistance with scheduling. [facility]07-29-[facility] Telephone encounter Note* Telephone Encounter - Anitra Fong - 11/27/2023 9:59 AM EDT Patient called and stated that his jailkeeper wants him to be seen [facility] and asked if Dr. Pepe can see him sooner than March. Please advise [facility]07-24-[facility]24 History of Present illness Narrative* Nadeem Barron RT(R) - 11/22/2023 2:00 PM EDT RADIOLOGY [...] PATIENT PRESENTS WITH AN IMPLANTABLE OR ATTACHED LOAD BUILDER: No CREATININE: Creatinine Date Value Ref Range [...] 1332/1355 PATIENT DISCHARGED TO: Ambulatory patient, left [place] department area. A Diagnostic radioactive procedure has taken place, with no further precautions necessary other than routine body substance precautions. More information regarding radiation safety can be found usingthis link: [email or web address] 20Diagnostic%20Nuclear%20Medicine%20Procedures.pdf SIGNATURE: KAYY Mccartney) PATIENT NAME: Fran Parekh DATE: November 22, 2023 TIME: 2:00 PM PAGER/CONTACT #: documented in this encounterUpper Valley Medical Center07-24-2024 NoteHNO ID: [id number] Author: NADEEM BARRON RT (R) Service: ? [...] PATIENT PRESENTS WITH AN IMPLANTABLE OR ATTACHED LOAD BUILDER: No CREATININE: Creatinine Date Value Ref Range [...] 1332/1355 PATIENT DISCHARGED TO: Ambulatory patient, left [place] department area. A Diagnostic radioactive procedure has taken place, with no further precautions necessary other than routine body substance precautions. More information regarding radiation safety can be found using this link: [email or web address] 20Diagnostic%20Nuclear%20Medicine%20Procedures.pdf SIGNATURE: RT Bib(R) PATIENT NAME: Fran Parekh DATE: November 22, 2023 TIME: 2:00 PM PAGER/CONTACT #:[facility] [id number] Telephone encounter Note* Telephone Encounter - Piedad Ryan MA - 11/22/2023 8:47 AM EDT Pt requesting refill on eliquis [place]onson 11/09/23 Piedad Ryan MA [facility]07-24-2024 Miscellaneous Notes* Telephone Encounter - Piedad Ryan MA - 11/22/2023 8:47 AM EDT Pt requesting refill on eliquis Bronson 11/09/23 Piedad Ryan MA documented in this encounterUpper Valley Medical Center07-12-2024 Telephone encounter Note * Telephone Encounter - Sissy Campbell LPN - 11/10/2023 9:48 AM EDT Phoned patient and advised paperwork faxed. Originals mailed to patient and copies forwarded to [employer]. Sissy Campbell LPN [facility]07-12-2024 Miscellaneous Notes* Telephone Encounter - Sissy Campbell LPN - 11/10/2023 9:48 AM EDT Phoned patient and advised paperwork faxed. Originals mailed to patient and copies forwarded to [employer]. Sissy Campbell LPN * Telephone Encounter - Agnes Del Rosario MD - 11/10/2023 8:37 AM EDT Completed and placed in outbox. * Telephone Encounter - Ree Ram LPN - 11/10/2023 8:14 AM EDT Patient calling said needs done [facility] please or his will have to go to [place] to work. . * Telephone Encounter - Agustín Monroy RN - 11/06/2023 10:36 AM EDT Patient calls with fax number to [facility]. Fax number is [phone]. Agustín Monroy RN * Telephone Encounter - Agnes Del Rosario MD - 11/06/2023 9:50 AM EDT Will [...] Dr. Carin Campbell LPN documented in this encounterUpper Valley Medical Center07-12-2024 Telephone encounter Note * Telephone Encounter - Agnes Del Rosario MD - 11/10/2023 8:37 AM EDT Completed and placed in outbox. [facility]07-12-2024 Telephone encounter Note* Telephone Encounter - Ree Ram LPN - 11/10/2023 8:14 AM EDT Patient calling said needs done CASSY please or his will have to go to [place] to work. . [facility]07-11-2024 NoteHNO ID: [id number] Author: VICTOR MANUEL BURROWS DO Service: ? Author Type: Physician Type: Progress Notes Filed: 11/09/2023 14:23 Note Text: [facility] STAFF PHYSICIAN NOTE OF PERSONAL INVOLVEMENT IN [...] for hypercoag work up SIGNATURE: Victor Manuel Burrows DO [facility] DATE of SERVICE: 11/09/2023[facility] [id number] History of Present illness Narrative* Victor Manuel Burrows DO - 11/09/2023 2:17 PM EDT [facility] STAFF PHYSICIAN NOTE OF PERSONAL INVOLVEMENT IN [...] for hypercoag work up SIGNATURE: Victor Manuel Burrows DO [facility] DATE of SERVICE: 11/09/2023 * Victor Manuel Burrows DO - 11/09/2023 11:09 AM EDT Consultation [...] exertion for the prior week or so. [place] acute shortness of breath and severe lightheadedness [...] of skin of nose Dr. Chowdary in [place] Stage 3a chronic kidney disease (HCC) Venous insufficiency HTN DM Type 2 Pulmonary Embolism/DVT Lung Nodules Social History Leads sedentary lifestyle getting up from chair to go to the restroom, eat, etc. Swam recreationally until about a year ago. He denies surgery in the last 3 months, trauma, immobilization, travel, family history of clotting disorder. Does fly to [place] about 3 times/year, last trip [place]. Never smoked, IV, drugs, or alcohol. Family [...] lung cancer in his father. 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 Reviewed by Dr. Burrows. PHYSICAL EXAM VITAL SIGNS: BP 141/84 Pulse [...] Pham DO Cc: Marquita Harp and Agnes Del Rosario documented in this encounterUpper Valley Medical Center07-11-2024 Instructions* Patient Instructions* Avril Pham DO - 11/09/2023 12:09 PM EDT - Needs colonoscopy - [facility] follow up with vascular medicine for clots - V/Q scan and echo before 2 month follow up with tx - Repeat imaging for lung nodule in a year documented in this encounterUpper Valley Medical Center07-11-2024 NoteHNO ID: [id number] Author: VICTOR MANUEL BURROWS DO Service: ? Author Type: Physician Type: [...] exertion for the prior week or so. [place] acute shortness of breath and severe lightheadedness [...] of skin of nose Dr. Chowdary in [place] Stage 3a chronic kidney disease (HCC) Venous insufficiency HTN DM Type 2 Pulmonary Embolism/DVT Lung Nodules Social History Leads sedentary lifestyle getting up from chair to go to the restroom, eat, etc. Swam recreationally until about a year ago. He denies surgery in the last 3 months, trauma, immobilization, travel, family history of clotting disorder. Does fly to [place] about 3 times/year, last trip [place]. Never smoked, IV, drugs, or alcohol. Family [...] lung cancer in his father. 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 Reviewed by Dr. Burrows. PHYSICAL EXAM VITAL SIGNS: BP 141/84 Pulse [...] scan to reassess he (more content not included)...[facility] [id number] Telephone encounter Note* Telephone Encounter - Agustín Monroy RN - 11/06/2023 10:36 AM EDT Patient calls with fax number to [facility] in [place]. Fax number is [phone]. Agustín Monroy RN [facility]07-08-2024 History of Present illness Narrative* Leonila Pino RN - 11/06/2023 10:24 AM EDT TRANSITION [...] Status: In-Network Discharge Summary: Pt discharged from [facility] on 10/27/23. Admitted for: complaint of SOB and dizziness and was found to have saddle PE and right LE DVT Concerns: see above Personnel Coordinator plan for next outreach: Will follow up weekly for 30 days post discharge ANTONIO Education Ordered -: No antonio previously placed for patient prior to this encounter Leonila Pino RN November 06, 2023 10:24 AM documented in this encounterUpper Valley Medical Center07-08-2024 Telephone encounter Note * Telephone Encounter - Agnes Del Rosario MD - 11/06/2023 9:50 AM EDT Will review and call when completed. [facility]07-08-[facility] Telephone encounter Note* Telephone Encounter - Sissy [...] to Physician Desk: Dr. Carin Campbell LPN [facility]07-03-2024 Telephone encounter Note* Telephone Encounter - Malachi Castillo RN - 11/01/2023 2:34 PM EDT Notified Polina of PT order. [facility]07-03-2024 Miscellaneous Notes* Telephone Encounter - Malachi Castillo RN - 11/01/2023 2:34 PM EDT Notified Polina of PT order. * Telephone Encounter - Agnes Del Rosario MD - 11/01/2023 12:57 PM EDT Referral order to PT for unsteady gait placed as requested. * Telephone Encounter - Carli Bowen RN - 11/01/2023 12:48 PM EDT Polina BONILLAsecurity rep calls and reports that she went out to see patient today. Patient does not need home health services of nursing and PT. Patient is not home bound and is planning to go back to work. Polina asking if provider can write order for outpatient physical therapy? Please review and advise, Carli Bowen RN documented in this encounterUpper Valley Medical Center07-03-2024 Telephone encounter Note * Telephone Encounter - Agnes Del Rosario MD - 11/01/2023 12:57 PM EDT Referral order to PT for unsteady gait placed as requested. [facility]07-[facility] Telephone encounter Note* Telephone Encounter - Carli Bowen RN - 11/01/2023 12:48 PM EDT Polina BONILLAsecurity rep calls and reports that she went out to see patient today. Patient does not need home health services of nursing and PT. Patient is not home bound and is planning to go back to work. Polina asking if provider can write order for outpatient physical therapy? Please review and advise, Carli Bowen RN [facility]07-02-2024 Telephone encounter Note* Telephone Encounter - Carmela Trevizo OCCA - 10/31/2023 8:36 AM EDT TC to Divina who is informed of below. ADAN Stewart [facility]07-02-2024 Miscellaneous Notes* Telephone Encounter - Carmela Trevizo OCCA - 10/31/2023 8:36 AM EDT TC to Divina who is informed of below. ADAN Stewart * Telephone Encounter - Agnes Del Rosario MD - 10/31/2023 8:20 AM EDT Yes, will sign and follow. * Telephone Encounter - Leonila Winslow LPN - 10/31/2023 8:13 AM EDT Divina with [facility] calling to see if you will follow and sign for home careorders for Custodial and PT. DX hypertension. Pt was d/c from [facility] on 10-27-23. Please advise Divina. Leonila Winslow LPN documented in this encounterUpper Valley Medical Center07-02-2024 Telephone encounter Note * Telephone Encounter - Agnes Del Rosario MD - 10/31/2023 8:20 AM EDT Yes, will sign and follow. [facility]07-02-20[facility] Telephone encounter Note* Telephone Encounter - Leonila Winslow LPN - 10/31/2023 8:13 AM EDT Divina with [facility] calling to see if you will follow and sign for home careorders for Custodial and PT. DX hypertension. Pt was d/c from [facility] on 10-27-23. Please advise Divina. Leonila Winslow LPN [facility]07-01-2024 History of Present illness Narrative* Leonila Pino, CHAD - 10/30/2023 4:05 PM EDT TRANSITIONAL [...] then after patient has not heard from [facility] - states he will call tomorrow afternoon if no contact first SUMMARY: Discharge Network Status: In-Network Discharge Pt discharged from [facility] on 10/27/23. Admitted for: complaint of SOB and dizziness and was found to have saddle PE and right LE DVT Contact made with patient: Yes Hi my name is Leonila Pino RN and I am calling from the [facility] on behalf of your PCP, Agnes Del Rosario MD I understand you were recently in [...] like to speak with a social work produce production team member to help give you support for any [...] I will send your request to a district director who will contact and assist you with [...] possible). ANTONIO Education Ordered -: Yes Leonila Pino RN October 30, 2023 4:12 PM documented in this encounterUpper Valley Medical Center07-01-2024 History of Present illness Narrative* Agnes Del Rosario MD - 10/30/2023 1:18 PM EDT Chief Complaint Patient presents with: Hospital F/U: Seen for PE and respiratory failure, d/c Thursday 10/26, patient states respiratory status has improved HPI Fran Parekh is a 78 year old male who presents here today for Above Complaints. Patient's hospital discharge summary was not completed at the time of this appointment. Patient admitted to [facility] from 10/22 to 10/26 for initial complaint [...] of skin of nose Dr. Chowdary in [place] Stage 3a chronic kidney disease (HCC) Venous insufficiency Previous Surgical History PAST SURGICAL HISTORY Procedure Laterality Date ARTHRP ACETBLR/PROX FEM PROSTC AGRFT/ALGRFT Right 06/03/2019 Hip replacement, total COLONOSCOPY FLX DX W/COLLJ SPEC WHEN PFRMD 04/21/11 Repeat 10 [id number] LASER GREENLIGHT prostate, [place] NEUROPLASTY &/TRANSPOS MEDIAN [...] one hour before dental procedure. CPAP AutoPAP [id number]. Mask per preference, tubing, filters, humidity. [employer]. Dx: G47.33. Fax 30 day compliance report to [phone]. CPAP Please provide mask fitting. Pt with [...] done Behavioral Health Screening Never done Covid-19 Vaccine(2022- season) due on 09/13/2023 LDL Cholesterol due [...] which included preparing to see the patient, lamb-ca-bqqb patient care, completing clinical documentation, obtaining and/or reviewing separately obtained history, performing a medically appropriate examination, counseling and educating the pat ient/family/caregiver, and ordering medications, tests, or procedures. Agnes Del Rosario MD documented in this encounterUpper Valley Medical Center07-01-2024 Evaluation note* Diagnosis Stage 3 chronic kidney disease, unspecified whether stage 3a or 3b CKD (HCC)- Primary documented in this encounter [facility]06-[facility]-2024 NoteHNO ID: [id number] Author: STEFANI GARSIA RN Service: Care Management Author Type: Registered Nurse Type: Care Mgt Progress Note Filed: 10/30/2023 14:40 Note Text: CARE MANAGEMENT PROGRESS NOTE SERVICE DATE: 10/30/2023 SERVICE TIME: 2:24 PM LOS: 4 days [place] caretenders unable to commit. Canceled referral sent to [facility] they have accepted. Called pt. Have explained that caretenders having difficulty committing . Sending ref to [facility]. He agreed with the plan SIGNATURE: Stefani Garsia RN PATIENT NAME: Fran Parekh DATE: October 30, 2023 TIME: 2:23 PM PAGER/CONTACT #: [phone] NoteHNO ID: [id number] Author: ?, ?, ? Service: ? Author Type: ? Type: Plan of Care Filed: 10/30/2023 10:38 Note Text: PHARMACY BEDSIDE DELIVERY SERVICE Patient Name: Fran Parekh The marked outpatient medications were filled at [facility] pharmacy and picked up at the [...] Thank you. DME = [employer] CPAP AutoPAP [id number]. Mask per preference, tubing, filters, humidity. [employer]. Dx: G47.33. Fax 30 day compliance report to [phone]. gabapentin 300 mg capsule Commonly known as: [...] 220 mg tablet Generic drug: naproxen sodium Fatimah Abarca PAGER: [phone] October 30, 2023 10:37 [facility]06-28-2024 NoteHNO ID: [id number] Author: STEFANI GARSIA RN Service: Care Management Author Type: Registered Nurse Type: Care Mgt Progress Note Filed: 10/27/2023 15:28 Note Text: CARE MANAGEMENT DISCHARGE NOTE SERVICE DATE: October 27, 2023 SERVICE TIME: 3:27 PM Admission Date: 10/23/2023 LOS: 4 days Discharge Arrangement Discharge Arrangement: Home with Home Health, Home with Relative Services Arranged Medical Services: Skilled Home Health Care Caregiver Assessment Needs [facility] Transportation Arrangements Transportation Arrangements: Car Date of Trip: 10/27/23 Destination: home Handoff Communication: Handoff to: Primary Care Physician Primary Care Physician Name/Phone: dr tierney Additional Information: Discharge Information Row Name Admission (Current) from 10/23/[address] [facility] Agency [facility] Start of Care -- they will call to set up appointment Reviewed 9 page list picked care tenders in [place] SIGNATURE: Stefani Garsia RN PATIENT NAME: Fran Mueller Iglesia DATE: October 27, 2023 TIME: 3:27 PM CONTACT #: [phone] [id number] NoteHNO ID: [id number] Author: STEFANI GARSIA RN Service: Care Management Author Type: Registered Nurse Type: Care Mgt Progress Note Filed: 10/27/2023 15:17 Note Text: CARE MANAGEMENT PROGRESS NOTE SERVICE DATE: 10/27/2023 SERVICE TIME: 3:16 PM LOS: 4 days [place] of Choice Given: Yes Level of Care Discussed: Home Care Financial Disclosure Provided: Yes Provider List: Home Care Provider list within the patient's requested geographic area shared with the patient/family: Yes within: 15 miles of zip code: [address] Quality and resource use metrics shared with the patient that are relevant to the patient's goals of care and treatment preferences:: Yes First choice is care tenders [place] SIGNATURE: Stefani Garsia RN PATIENT NAME: Fran Parekh DATE: October 27, 2023 TIME: 3:16 PM PAGER/CONTACT #: [phone] [id number] NoteHNO ID: [id number] Author: MARQUITA HARP MD Service: Hospital Medicine [...] 138/83 Pulse: 75 74 70 68 Resp: 18 18 Temp: 36.8 ?C (98.2 ?F) [...] - WARFARIN Ordered 10/26/23 1455 10/27/23 0459 10/24/231999 heparin iv infusion 25,000 units in NaCl 0.45% 250 mL STANDARD NOMOGRAM (Heparin Infusion + Bolus for Subtherapeutic PTTAC) 0-30 mL/hr See Hyperspace for full Linked Orders Report. 0-3,000 Units/hr INTRAVENOUS CONTINUOUS Rate/Dose Calculated - Heparin, 10/25 1350 10/24/23 1251 -- 10/24/23 1700 WARFARIN DOSING PER PHARMACY 1 Each OTHER DAILY - (more content not included)...[place] [id number] Telephone encounter Note* Telephone Encounter - Sissy Campbell LPN - 10/26/2023 1:32 PM EDT Phoned patient and discussed with him recommendations. Patient agreeable to 10/30/23 at 1:20pm. [facility]06-27-2024 Miscellaneous Notes* Telephone Encounter - Sissy Campbell LPN - 10/26/2023 1:32 PM EDT Phoned patient and discussed with him recommendations. Patient agreeable to 10/30/23 at 1:20pm. * Telephone Encounter - Agnes Del Rosario MD - 10/26/2023 1:22 PM EDT I was called by the hospitalist at [place] for this patient regarding new diagnosis of PE and DVT.He is on day 6 of 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 with coumadin and is still not therapeutic. They are wanting to starting him on lovenox and continue coumadin and have him f/u with our office on Monday for appointment and INR. Please call to schedule 40 minute OV with me. documented in this encounterUpper [facility]06-[facility]24 Telephone encounter Note * Telephone Encounter - Agnes Del Rosario MD - 10/26/2023 1:22 PM EDT I was called by the hospitalist at [place] for this patient regarding new diagnosis of PE and DVT.He is on day 6 of 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 with coumadin and is still not therapeutic. They are wanting to starting him on lovenox and continue coumadin and have him f/u with our office on Monday for appointment and INR. Please call to schedule 40 minute OV with me. [facility]06-26-2024 NoteHNO ID: [id number] Author: MARQUITA HARP MD Service: Hospital Medicine [...] - WARFARIN Ordered 10/25/23 1201 10/26/23 0459 10/24/23 2000 heparin iv infusion 25,000 [...] Given, 10/24 0835 06 (more content not included)...[facility] CenterEamjzvaa86-35-2588 NoteHNO ID: [id number] Author: FATIMAH DAN MD Service: Critical Care [...] and Airways Line Duration Peripheral 10/23/23 0230 [facility] Left Forearm 20 Gauge 1 day Peripheral 10/24/23 0400 [facility] Right Forearm 20 Gauge <1 day PHYSICAL [...] #Neuropathy- continue Gabapentin 3 (more content not included)...[facility] [id number] NoteHNO ID: [id number] Author: YUMIKO PAREDES, RN Service: Care Management Author Type: Registered [...] RA. Per medical team possible transfer to [facility] if hemodynamically stable. Plan for home with no skilled needs. remains available for plan of care and discharge planning needs as they arise. SIGNATURE: Yumiko Paredes RN PATIENT NAME: Fran Parekh DATE: October 24, 2023 TIME: 9:34 AM PAGER/CONTACT #:[facility] [id number] NoteHNO ID: [id number] Author: FATIMAH DAN MD Service: Critical Care Author Type: Physician Type: Progress Notes Filed: 10/24/2023 13:34 Note Text: [facility] STAFF PHYSICIAN NOTE OF PERSONAL INVOLVEMENT IN [...] hypothyroidism, and CKD IIIa. Initially presented to [place] ED 10/21 with concerns for SOB and lightheadedness. Lightheadedness x24 hours, SOB x2 weeks. CTPE with saddle PE with extension R and L main (R centric, L near vessel wall). Imaging concerns for RH strain. [facility] On arrival, [...] outpatient PH followup. Patient/Family Updated: Patient, Fran Mueller Iglesia, contacted. They were updated on the patient's goals of care, medical plan for the day, datapower consultant recommendations, medical disposition and current medical condition/prognosis as and if clinically indicated. All questions and concerns were answered and addressed at this juncture. They were contacted on October 24, 2023 at 11:30 Am. The duration of the conversation was 5 minutes. Moderate complexity. Ok for RNF SIGNATURE: Fatimah Dan MD [facility] DATE of SERVICE: 10/24/2023[facility] CenterFurlkgjq58-19-2560 NoteHNO ID: [id number] Author: DEISY HORTON RN Service: Care Management Author Type: Registered Nurse Type: Care Mgt Initial Assessment Filed: 10/23/2023 13:15 Note Text: CARE MANAGEMENT: ASSESSMENT AND DISCHARGE PLAN SERVICE DATE: October 23, 2023 SERVICE TIME: 1045 PCP: Agnes Del Rosario MD Primary Contact: Extended Emergency Contact Information Primary Emergency Contact: Estefania Parekh Address: [address] [place] [address] Mobile Relation: Spouse Admission Status: Inpatient Insurance Provider: MEDICARE A AND B Discharge Planning requested by: Per Department Practice Potential Transition Plans No Services Indicated Advance Directives Current Advance Directive: Health Care Power of Pipe And Tank Fabricator In Chart: No Tunnel Form Placing Supervisor Attempted to Assist with AD Completion: [...] Patient Goal(s): Be able to go home [place] Explained: [place] of Choice Given: No Reason Not Given: [...] independent, 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 Pt lives with his in a 2 story home. Pt is currently in [place]. Pt states no other DME besides CPAP and no services in the home. Pt states no issues with SDOH, substances or BH. Pt states no concerns at d/c. Plan for d/c with no skilled needs. SIGNATURE: Deisy Horton RN PATIENT NAME: Fran Parekh DATE: October 23, 2023 TIME: 1:09 PM CONTACT # [phone] [id number] NoteHNO ID: [id number] Author: FATIMAH DAN MD Service: Critical Care [...] obesity, hypothyroidism, and CKD IIIa. Presenting from [place] with Submassive intermediate to high risk PE [...] Clinical Associate Staff, Critical care Medicine Pager: [phone] October 23, 2023 3:33 [facility]06-24-2024 NoteHNO ID: [id number] Author: ANNE-MARIE MARRUFO DO Service: Critical Care Author Type: Resident Type: Plan of Care Filed: 10/23/2023 14:17 Note Text: This is a 78-year-old male with a past medical history of hypertension, hyperlipidemia, hypothyroidism, MARTIN on CPAP, prediabetes, CKD, and angina who presents with dizziness and lightheadedness from [place] and was found to have a saddle pulmonary embolism. CT of the chest was performed and showed a saddle embolus with thrombus in the right main pulmonary artery (50% lumen of the vessel., Left main 20 to 30% lumen of the vessel. Given requirement for PERT team consultation patient was [facility]. Discussions with Dr. Gonzales determined [...] up with the pulmonary hypertension treatment. Anne-Marie Marrufo DOWest Roxbury Va Medical [id number] NoteHNO ID: [id number] Author: FATIMAH DAN MD Service: Critical Care Author Type: Physician Type: Progress Notes Filed: 10/23/2023 15:39 Note Text: [facility] STAFF PHYSICIAN NOTE OF PERSONAL INVOLVEMENT IN [...] hypothyroidism, and CKD IIIa. Initially presented to [place] ED 10/21 with concerns for SOB and lightheadedness. Lightheadedness x24 hours, SOB x2 weeks. CTPE with saddle PE with extension R and L main (R centric, L near vessel wall). Imaging concerns for RH strain. [facility]. On arrival, [...] Full Code Family Contact: [facility] Patient/Family Updated: Patient, Fran Parekh, contacted. They were updated on the patient's goals of care, medical plan for the day, datapower consultant recommendations, medical disposition and current medical condition/prognosis as and if clinically indicated. All questions and concerns were answered and addressed at this juncture. They were contacted on October 23, 2023 at 11:15 AM. The duration of the conversation was 5 minutes. Billing performed by overnight team on early AM admission. SIGNATURE: Fatimah Dan MD [facility] DATE of SERVICE: 10/23/2023[facility] CenterMshapxrr39-01-2987 History of Present illness Narrative* Sherrell Rouse APRN.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 - 10/09/2023 7:23 AM EDT This note [...] history is provided by the patient. No foreign language teacher was used. Rash This is a [...] of skin of nose Dr. Chowdary in [place] Stage 3a chronic kidney disease (HCC) Venous insufficiency PAST SURGICAL HISTORY Procedure Laterality Date ARTHRP ACETBLR/PROX FEM PROSTC AGRFT/ALGRFT Right 06/03/2019 Hip replacement, total COLONOSCOPY FLX DX W/COLLJ SPEC WHEN PFRMD 04/21/11 Repeat 10 [id number] LASER GREENLIGHT prostate, [place] NEUROPLASTY &/TRANSPOS MEDIAN [...] before dental procedure.^Disp: 4 capsule^Rfl: 3 CPAP^AutoPAP [id number]. Mask per preference, tubing, filters, humidity. Lifetime Supplies. Dx: G47.33. Fax 30 day compliance report to [phone].^Disp: 1 Each^Rfl: 999 CPAP^Please provide mask fitting. [...] red flags V/units with PCP Sherrell Rouse APRN.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 documented in this encounterUpper [facility] Center05-29-2024 Telephone encounter Note * Telephone Encounter - [...] Please advise. Thank you. Agustín Monroy RN. [facility]05-29-2024 Miscellaneous Notes* Telephone Encounter - Agustín Monroy [...] you. Agustín Monroy RN. documented in this encounterUpper Valley Medical Center05-06-2024 Telephone encounter Note * Telephone Encounter - [...] No need to notify patient. Marilia Brush [facility]05-06-2024 Miscellaneous Notes* Telephone Encounter - Marilia Brush [...] notify patient. Marilia Brush documented in this encounterUpper Valley Medical Center04-02-2024 History of Present illness Narrative* Marilia Orozco APRN.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 - 08/01/2023 9:40 AM EDT 07/31/2023 Patient [...] of skin of nose Dr. Chowdary in [place] Stage 3a chronic kidney disease (HCC) Venous [...] one hour before dental procedure. CPAP AutoPAP [id number]. Mask per preference, tubing, filters, humidity. Lifetime Supplies. Dx: G47.33. Fax 30 day compliance report to [phone]. CPAP Please provide mask fitting. Pt with [...] in October, sooner if needed Marilia Orozco APRN.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 Prescription instructions reviewed with patient as applicable. [...] Level: 3 - Low documented in this encounterUpper Valley Medical Center03-09-2024 Miscellaneous Notes* Telephone Encounter - Lashawn Voss LPN - 07/08/2023 11:40 AM EST letter completed and sent out via mail to patient. Lashawn Voss LPN * Telephone Encounter - Anges Del Rosario MD - 07/08/2023 11:31 AM EST Letter printed and signed for patient to pickle processor at his convenience. * Telephone Encounter - Lashawn Voss LPN - 07/08/2023 11:24 AM EST Patient is requesting a letter in this regards to not having antibiotic to give to his dentist. Patient does not use nor does he want to use my chart. Please review and advise. Lashawn Voss LPN * Telephone Encounter - Agnes Del Rosario MD - 07/08/2023 9:18 AM EST The [place] [employer] and the [place] [employer] both advise againstthe [...] Voss LPN * Telephone Encounter - Agnes Del Rosario MD - 07/08/2023 8:01 AM EST Dental procedures are not associated with an increased risk of orthopedic hardware infection and wedo not recommend treating with antibiotics prior to dental procedures for patients with history of joint replacement. * Telephone Encounter - Katlyn Melissa RN - 07/07/2023 12:08 PM EST Pt called in and reports he had hip surgery by Dr Claire in [place], and the provider no longer worksthere. He states he is supposed to have an antibiotic an hour before getting his teeth cleaned and the dentist will not prescribe them for him. Pt is asking if the provider will call the antibiotic for him to [facility] in [place]. Pt states he missed his appointment, so he is on the call in list right now. Please call and advise Pt. documented in this encounterUpper Valley Medical Center02-22-2024 Miscellaneous Notes* Telephone Encounter - Agustín Monroy RN - 06/22/2023 3:28 PM EST Patient calls frustrated about the MRI of his back that hasn't been scheduled. Patient reports that MRI was recommended by Dr. Cabezas who was forwarding information to Dr. Del Rosario to have it ordered. Orders found in scanned documents. Scheduling to reach out to patient to schedule. Called patient back to let him know orders were received and scheduling would contact him. Patient verbalizes understanding. Agustín Monroy RN documented in this encounterUpper Valley Medical Center02-16-2024 Nurse Note* Eunice Bruce LPN - 06/16/2023 11:39 AM EST ALESSIA BP average: BP 161/97 P 66 #1 BP 152/89 P 68 #2 BP 161/98 P 67 #3 BP 155/96 P 66 #4 BP 154/92 P 66 #5 BP 168/96 P 67 #6 BP 166/102 P 67 Eunice Bruce LPN documented in this encounterUpper Valley Medical Center02-16-2024 History of Present illness Narrative* Marilia Orozco APRN.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 - 06/16/2023 10:40 AM EST 06/16/2023 Patient [...] of skin of nose Dr. Chowdary in [place] Stage 3a chronic kidney disease (HCC) Venous [...] one hour before dental procedure. CPAP AutoPAP [id number]. Mask per preference, tubing, filters, humidity. Lifetime Supplies. Dx: G47.33. Fax 30 day compliance report to [phone]. CPAP Please provide mask fitting. Pt with [...] Level: 4 - Moderate documented in this encounterUpper Valley Medical Center01-15-2024 History of Present illness Narrative* Karen Wing [...] 15, 2023 10:09 AM documented in this encounterUpper Valley Medical Center11-20-2023 Miscellaneous Notes* Telephone Encounter - John Mayen Ma - 03/20/2023 10:53 AM EST Patient last visit 11/02/22 Follow up appointment scheduled 05/15/23 John Mayen Ma documented in this encounterUpper Valley Medical Center11-13-2023 History of Present illness Narrative* Anusha Trevino [...] items below Health Maintenance items due: RSV Vaccine(dose 60+ series) Never done BP Controlled (<130/80) due on 07/30/2021 Advance Directive Discussion Never done Depression Assessment due on 05/01/2022 Influenza Vaccine(1) due on 12/30/2022 Covid-19 Vaccine( season) due on 12/30/2022 Navigation Signature: Anusha Trevino MA March 13, 2023 9:53 AM documented in this encounterUpper Valley Medical Center11-07-2023 Miscellaneous Notes* Telephone Encounter - Radha Montgomery [...] Patient aware RX will be sent to [facility] pharmacy. No need to notify patient. Marilia Brush documented in this encounterUpper Valley Medical Center10-10-2023 Miscellaneous Notes* Telephone Encounter - Leonila Winslow LPN - 02/07/2023 2:48 PM EDT Spoke with pt and information listed below given. Pt verbalizes understanding. Leonila Winslow LPN * Telephone Encounter - Agnes Del Rosario MD - 02/07/2023 1:47 PM EDT 6 [...] and advise. Sherrell Pardo documented in this encounterUpper Valley Medical Center09-25-2023 Miscellaneous Notes* Telephone Encounter - Alexandrea Winslow LPN - 01/23/2023 9:08 AM EDT Faxed Rx medical necessity for durable medical equipment to [facility] [phone]. Document scanned into chart. Alexandrea Winslow LPN documented in this encounterUpper Valley Medical Center08-31-2023 History of Present illness Narrative* Yogesh Forman PT - 12/29/2022 2:27 PM EDT Episode [...] and treatment included: Therapeutic exercise, Manual therapy, Self-prison management, Patient/Family/Caregiver Education, and Body mechanics training. [...] 1135 Yogesh Forman PT documented in this encounterUpper Valley Medical Center08-29-2023 History of Present illness Narrative* Yogesh Forman [...] LEVEL OF FUNCTION: TREATMENT: Therapeutic Exercise: 1: BTC China[employer] StepOne seat #15 x5 minutes resistance level [...] and assessment of patient's response to intervention. Self-Snf Management: 1: Pt was educated on PNE [...] Time : 1445 Session Stop Time : 153 Yogesh Forman PT documented in this encounterUpper Valley Medical Center08-24-2023 History of Present illness Narrative* Yogesh Forman [...] 1139 Yogesh Forman PT documented in this encounterUpper Valley Medical Center08-18-2023 History of Present illness Narrative* Yogesh Forman [...] LEVEL OF FUNCTION: TREATMENT: Therapeutic Exercise: 1: BTC [employer] StepOne seat #15 x6 minutes resistance level [...] 1303 Session Stop Time : 1348 Yogesh Golias, PT documented in this encounterUpper Valley Medical Center08-10-2023 History of Present illness Narrative* Yogesh Forman [...] in pain in short term and mild snf improvement. The patient will continue to benefit [...] LEVEL OF FUNCTION: TREATMENT: Therapeutic Exercise: 1: Cloak StepOne seat #15 x6 minutes resistance level [...] 1645 Yogesh Forman PT documented in this encounterUpper Valley Medical Center08-10-2023 Miscellaneous Notes* Telephone Encounter - Amberly Velazquez [...] and advise. Amberly Velazquez documented in this encounterUpper Valley Medical Center08-08-2023 History of Present illness Narrative* Yogesh Forman PT - 12/06/2022 3:33 PM EDT Episode Visit Count: 3 Therapist That Will Accept/Oversee The Plan Of Care: Yogesh Forman PT Start of Care Date: 11/29/22 Onset Date: 11/29/20 Plan of Care Certification Date: 11/29/22 Next Certification Due Date: 01/03/23 Patient Identified by Name and Date of : Yes REHABILITATION AND SPORTS THERAPY PHYSICAL THERAPY TREATMENT NOTE ASSESSMENT: Fran R Heavilin tolerated the session with decreased symptoms. He [...] Time : 1450 Session Stop Time : 1532 Yogesh Forman PT documented in this encounterUpper Valley Medical Center08-03-2023 History of Present illness Narrative* Yogesh Forman [...] LEVEL OF FUNCTION: TREATMENT: Therapeutic Exercise: 1: BTC [employer]Fit StepOne seat #15 x6 minutes resistance level [...] 1135 Yogesh Forman PT documented in this encounterUpper Valley Medical Center08-01-2023 History of Present illness Narrative* Sherrell Jackson [...] Planned: 16 Planned Treatment Interventions: Therapeutic exercise (55240), Neuromuscular re- education (68747), Manual therapy (95033), Therapeutic activities (12433), Self- prison management (91445), Gait Training (90334), Patient/Family/Caregiver Education PLAN FOR NEXT VISIT: Pt. [...] has not completed his HEP since about [place] time. Low back pain returned overthe winter and has become gradually worse recently. Presents with BLE swelling, admits he supposed to be wearing compression stockings, but limited compliance due to diffculty donning. Attributes his imbalance to swollen feet. Only 1 fall on uneven terrain about a month ago in [place] reported by pt. 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 Patient education as noted. Self-Snf Management: 1: *discussed centralization and directional preference with lumbar flexion based exercises 2: *discussed wedge may be purchased on [employer], provided dimensions and search words to pt. [...] 1200 Session Stop Time : 1245 Sherrell Jackson, PT documented in this [facility]07-12-2023 Miscellaneous Notes* Telephone Encounter - Wilda Perea MA - 11/09/2022 10:37 AM EDT Mychart message sent. Wilda Perea MA * Telephone Encounter - Wilda Perea MA - 11/09/2022 8:14 AM EDT ----- Message from Marilia Orozco APRN.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 sent at 11/08/2022 3:20 PM EDT ----- ECHO shows good heart pumping function with no valvular abnormalities. Marilia Orozco APRN.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 documented in this encounterUpper Valley Medical Center07-10-2023 History of Present illness Narrative* Dafne Carrillo, CHAD - 11/07/2022 4:20 PM EDT 22 ga angio started to right forearm. Good blood return. Flushed easily with NSS. Dressing applied.Definity (Lot # [id number] exp 7-1-24) mixed per protocol. 1 cc administered throughout procedure. 9 cc discarded. Pt tolerated procedure well. No C/o's, Hep lock D/c'd and dressing applied. Patient discharged ambulatory with Senior Finance Manager. Dafne Carrillo, RN documented in this [facility]07-06-2023 Miscellaneous Notes* Telephone Encounter - Radha Montgomery LPN - 11/03/2022 10:18 AM EDT Left detailed message as noted. * Telephone Encounter - Radha Montgomery LPN - 11/03/2022 10:16 AM EDT ----- Message from Agnes Del Rosario MD sent at 11/03/2022 9:18 AM EDT ----- Stable labs compared to last checks 6-12 months ago. Continue current regimen. Continue to work on low carb diet for A1c in prediabetic range. Low sodium diet and avoidance of NSAIDs for CKD stage 3.F/u as scheduled. documented in this encounterUpper Valley Medical Center07-05-2023 History of Present illness Narrative* Marilia Orozco APRN.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 - 11/02/2022 8:27 AM EDT 11/02/2022 Patient [...] of skin of nose Dr. Chowdary in [place] Stage 3a chronic kidney disease (HCC) Venous [...] ON EMPTY STOMACH. FOR THYROID CPAP AutoPAP [id number]. Mask per preference, tubing, filters, humidity. Lifetime Supplies. Dx: G47.33. Fax 30 day compliance report to [phone]. lisinopril (ZESTRIL, PRINIVIL) 40 mg tablet Take [...] 0.9 % (FLUSH) INJECTION SYRINGE Marilia Orozco APRN.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 Prescription instructions reviewed with patient as applicable. [...] which included preparing to see the patient, [id number] patient care, completing clinical documentation, obtaining and/or reviewing separately obtained history, performing a medically appropriate examination, counseling and educating the pat ient/family/caregiver, and ordering medications, tests, or procedures. documented in this encounterUpper Valley Medical Center02-10-2023 Miscellaneous Notes* Telephone Encounter - Uziel Perez PA-C - 06/10/2022 10:28 AM EST E-script has been sent to [facility]. Uziel Perez PA-C * Telephone Encounter - Magali Andrews - 06/10/2022 9:03 AM EST Patient is getting dental work done on Monday morning (06/13/21). He needs a prescription for antibiotics. Please send to [facility]/pharmacy #[id number] - [place] [id number] - [address] [facility] / pharmacy on file. documented in this encounterUpper Valley Medical Center01-23-2023 History of Present illness Narrative* Cole Campos MD - 05/23/2022 11:08 AM EST Patient [...] ON EMPTY STOMACH. FOR THYROID CPAP AutoPAP [id number]. Mask per preference, tubing, filters, humidity. Lifetime Supplies. Dx: G47.33. Fax 30 day compliance report to [phone]. lisinopril (ZESTRIL, PRINIVIL) 40 mg tablet Take [...] ROUTINE - BENZONATATE 100 MG CAPSULE Cole Campos MD documented in this encounterUpper [facility]01-[facility]23 Miscellaneous Notes* Telephone Encounter - Lindsay Pang [...] Thank you. Lindsay Pang documented in this encounterUpper Valley [facility] Center12-14-2022 History of Present illness Narrative* Agnes Del Rosario MD - 04/13/2022 9:20 AM EST Medicare [...] of skin of nose Dr. Chowdary in [place] Stage 3a chronic kidney disease (HCC) Venous insufficiency PAST SURGICAL HISTORY Procedure Laterality Date ARTHRP ACETBLR/PROX FEM PROSTC AGRFT/ALGRFT Right 06/03/2019 Hip replacement, total COLONOSCOPY FLX DX W/COLLJ SPEC WHEN PFRMD 04/21/11 Repeat 10 [id number] LASER GREENLIGHT prostate, [place] NEUROPLASTY &/TRANSPOS MEDIAN [...] very much. List of current specialists seen: Neurology-Bruno Marquez OT/PT/Speech- Tabby Hancock End of Live [...] MD Agnes Singh MD documented in this encounterUpper Valley Medical Center12-12-2022 History of Present illness Narrative* Anusha Trevino MA - 04/11/2022 11:41 AM EST [employer] NAVIGATION OUTREACH Action/I Spoke with Fran. Scheduled AMW for tomorrow [...] 11, 2022 11:41 AM documented in this encounterUpper Valley Medical Center10-14-2022 History of Present illness Narrative* Bruno Marquez Jr., MD - 02/11/2022 9:02 AM EDT ESTABLISHED PATIENT VISIT CHIEF COMPLAINT: MARTIN HISTORY OF PRESENT ILLNESS: Fran Parekh is a 76 year old male, BMI 39.46 kg/m2 with a PMH significant for and per last office visit note of 12/15/21: 1. MARTIN on CPAP - ICD9: 327.23, V46.8, ICD10: G47.33, Z99.89 Patient subjectively and objectively doing well on PAP therapy except for mask leaks as noted above. Will provide Rx to DME ([facility]) in attempt to get patient mask fitting. [...] mg by mouth once daily. CPAP AutoPAP [id number]. Mask per preference, tubing, filters, humidity. Lifetime Supplies. Dx: G47.33. Fax 30 day compliance report to [phone]. MULTIVITAMIN,TX-MINERALS ORAL TAB Take one(1) tablet daily. [...] of skin of nose Dr. Chowdary in [place] Stage 3a chronic kidney disease (HCC) Venous [...] [facility]. [facility] Advised pt not to drive or operate heavy machinery when sleepy. Follow up in 1 year. Bruno Marquez MD I spent a total of 22 minutes on the date of the service which included preparing to see the patient, [id number] patient care, completing clinical documentation, obtaining and/or reviewing separately obtained history, performing a medically appropriate examination, counseling and educating the pat ient/family/caregiver, ordering medications, tests, or procedures, independently interpreting results (not separately reported), and communicating results to the patient/family/caregiver. documented in this encounterUpper Valley Medical Center10-06-2022 History of Present illness Narrative* Yogesh Forman [...] included: Therapeutic exercise, Manual therapy, Therapeutic activities, Self-prison management, Patient/Family/Caregiver Education, and Body mechanics training. [...] 45 Yogesh Forman PT documented in this encounterUpper Valley Medical Center10-03-2022 History of Present illness Narrative* Yogesh Forman [...] THERAPY PHYSICAL THERAPY TREATMENT NOTE ASSESSMENT: Fran Mueller Marinosanaz tolerated the session with decreased symptoms. [...] LEVEL OF FUNCTION: TREATMENT: Therapeutic Exercise: 1: BTC [employer] StepOne seat #16 x5 minutes resistance number 5 (Pt provided an update on his condition and subjective collected.) 2: supine B SKTC 2x30 seconds 3: supine DKTC 2x30 seconds with towel 4: supine LTR 2x10 5: stirring the pot standing at [facility] 1 plate plus 2 round 2x10 CW and 2x10 CCW facing both lateraldirections 6: standing at [facility], palloff press with 1 plate and 2 round 2x12 facing both lateral directions. 7: seated at [facility] with maria del rosario overhead [...] 5 Total Treatment Time Minutes (timed/untimed): 45 Tabby Gibbs, RUBENS Forman, PT documented in this encounterUpper Valley Medical Center09-26-2022 History of Present illness Narrative* Yogesh Forman [...] THERAPY PHYSICAL THERAPY TREATMENT NOTE ASSESSMENT: Fran Mueller Marinosanaz tolerated the session with decreased symptoms. [...] LEVEL OF FUNCTION: TREATMENT: Therapeutic Exercise: 1: Cloak StepOne seat #16 x5 minutes resistance number 5 (Pt provided an update on his condition and subjective collected.) 2: supine B SKTC 2x30 seconds 3: supine DKTC 2x30 seconds with towel 4: supine LTR 2x10 5: stirring the pot standing at [facility] 1 plate plus 2 round 2x10 CW and 2x10 CCW facing both lateraldirections 6: standing at [facility], palloff press with 1 plate [...] 45 Yogesh Forman PT documented in this encounterUpper Valley [facility] Center09-22-2022 History of Present illness Narrative* Yogesh Forman [...] a bad day for pain, was a 7-12/08. Pt states feeling better today but did [...] 2x10 5: stirring the pot standing at [facility] 1 plate plus 2 round 2x10 CW and 2x10 CCW facing both lateraldirections 6: standing at [facility], palloff press with 1 plate and 2 round 2x12 facing both lateral directions. 7: seated at [facility] with maria del rosario overhead [...] 43 RUBENS Allred PT documented in this encounterUpper Valley Medical Center09-19-2022 History of Present illness Narrative* Gregory Moyer PT - 01/17/2022 10:20 AM EDT Episode Visit Count: 10 Therapist That Will Accept/Oversee The Plan Of Care: Yogesh Forman PT Start of Care Date: 12/08/21 Onset Date: 12/09/19 Plan of Care Certification Date: 01/06/22 Next Certification Due Date: 02/03/22 Patient Identified by Name and Date of : Yes REHABILITATION AND SPORTS THERAPY PHYSICAL THERAPY TREATMENT NOTE ASSESSMENT: Fran Mueller Marinosanaz tolerated the session with decreased symptoms. [...] relieves symptoms today TREATMENT: Therapeutic Exercise: 1: BTC [employer] StepOne seat #16 x5 minutes resistance number 5 (Pt provided an update on his condition and subjective collected.) 2: supine B SKTC 2x30 seconds 3: supine DKTC 2x30 seconds with towel 4: supine LTR 2x10 5: stirring the pot standing at [facility] 1 plate plus 2 round x10 CW and x10 CCW facing both lateral directions 6: standing at [facility], palloff press with 1 plate and 2 round 2x10 facing both lateral directions. 7: seated at [facility] with maria del rosario overhead [...] 42 RUBENS Allred PT documented in this encounterUpper Valley Medical Center09-14-2022 History of Present illness Narrative* Yogesh Forman [...] LEVEL OF FUNCTION: TREATMENT: Therapeutic Exercise: 1: BTC [employer] StepOne seat #16 x5 minutes resistance number 5 (Pt provided an update on his condition and subjective collected.) 2: supine B SKTC 2x30 seconds 3: supine DKTC 2x30 seconds with towel 4: supine LTR 2x10 5: stirring the pot standing at [employer] 1 plate plus 2 round x10 CW and x10 CCW facing both lateral directions 6: [facility], palloff press with 1 plate and [...] 45 Yogesh Forman PT documented in this encounterUpper Valley Medical Center09-12-2022 History of Present illness Narrative* Yogesh Forman [...] 45 Yogesh Forman PT documented in this encounterUpper Valley Medical Center09-06-2022 History of Present illness Narrative* Yogesh Forman [...] Total Treatment Time Minutes (timed/untimed): 45 Tabby Donaldjason, RN ENTEROSTOMAL Yogesh Forman PT documented in this encounterUpper Valley Medical Center08-31-2022 History of Present illness Narrative* Yogesh Forman [...] 45 RUBENS Patel PT documented in this encounterUpper Valley Medical Center08-29-2022 History of Present illness Narrative* Yogesh Forman [...] less verbal cueing. TREATMENT: Therapeutic Exercise: 1: BTC [employer] StepOne seat #16 x5 minutes handles at [...] 8 Total Treatment Time Minutes (timed/untimed): 45 Xiao Humphrey, RN ENTEROSTOMAL Yogesh Golias, PT documented in this encounterUpper Valley Medical Center08-22-2022 History of Present illness Narrative* Yogesh Forman [...] Fran Parekh tolerated the session with fatigue, expected muscle [...] and with walking. TREATMENT: Therapeutic Exercise: 1: Cloak StepOne seat #16 x5 minutes handles at [...] 40 Yogesh Forman PT documented in this encounterUpper Valley Medical Center08-19-2022 Miscellaneous Notes* Telephone Encounter - Sissy Campbell LPN - 12/17/2021 2:19 PM EDT [place] 12/01/21 NOV 02/08/22 * Telephone Encounter - Vaishali Schneider - 12/17/2021 11:52 AM EDT Patient has [...] notify patient. 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 lives [address] in [place]) Intake Information: Prescription present Previous Treatment: None Falls Interview: Two or more falls in the last year Falls Intervention: Falls Specific Functional Performance Tests Falls History # of falls in past year: 2 (both at [facility] in [place]) # of falls resulting in an injury [...] Demonstration;Requires Review/AdditionalEducation TREATMENT: PT Treatment Interventions: Therapeutic Exercise;Self-Snf Management Evaluation Therapeutic Exercise: 1: Pt was [...] and visual cuing. Patient education as noted. Self-Snf Management: 1: Pt was educated on the [...] 60 Yogesh Forman PT documented in this encounterUpper Valley Medical Center08-04-2022 Miscellaneous Notes* Telephone Encounter - Amara Owen Ma - 12/02/2021 1:35 PM EDT Letter mailed to pt home of results. Amara Owen MA * Telephone Encounter - Agnes Del Rosario MD - 12/02/2021 1:31 PM EDT A1c improved from 6.1 to 5.8. Borderline prediabetic range. Recommend low carb diet and exercise asable. Kidney function is down from last check. Still in stage III range. Recommend he stop all NSAIDs including: ibuprofen, aleve, meloxicam. May use tylenol for pain or fever. Push PO fluids. Will recheckprior to next OV. documented in this encounterUpper Valley Medical Center07-14-2022 History of Present illness Narrative* Tri Hylton PA-C - 11/11/2021 9:43 AM EDT This note was created using PollVaultrriter. Subjective Fran Parekh is a 76 year [...] he is leaving for a trip to [place] and wanted to get it taken care [...] of skin of nose Dr. Chowdary in [place] Stage 3a chronic kidney disease (HCC) Venous [...] mg by mouth once daily. CPAP AutoPAP [id number]. Mask per preference, tubing, filters, humidity. Lifetime Supplies. Dx: G47.33. Fax 30 day compliance report to [phone]. 1 Device 0 MULTIVITAMIN,TX-MINERALS ORAL TAB Take one(1) tablet daily. 60 0 sdombvxx-ndcnnjlzi-gaqqoeaysawywe (CORTISPORIN) 3.5-10,000-1 mg/mL-unit/mL-% otic suspension Use 3 [...] agreeable. Tri Hylton PA-C documented in this encounterUpper Valley Medical Center06-21-2022 History of Present illness Narrative* Marielle Bruner LPN - 10/19/2021 4:10 PM EDT Patient presents for Shingrix vaccine. Denies any problems at this time. Tolerated injection well. Marielle Bruner LPN documented in this encounterUpper Valley Medical Center06-21-2022 Miscellaneous Notes* Telephone Encounter - Agnes Del Rosario MD - 10/19/2021 10:04 AM EDT Order approved. * Telephone Encounter - Marielle Bruner LPN - 10/19/2021 8:31 AM EDT Patient scheduled for nurse visit 10/19/21 to receive Shingrix vaccine. Please place order at this time. Marielle Bruner LPN documented in this encounterUpper Valley Medical Center06-08-2022 Miscellaneous Notes* Telephone Encounter - Meredith Munoz MA - 10/06/2021 8:42 AM EDT Spoke with patient and gave PCP instructions. Voiced understanding declined appointment at this time. He was instructed if new or worsening sx develop to contact office for an OV. Meredith Munoz MA * Telephone Encounter - Agnes Del Rosario MD - 10/05/2021 6:16 PM EDT 30 [...] 10/05/2021 11:19 AM EDT Pt reports Dr Renee would give him [...] you. Katlyn Melissa RN documented in this encounterUpper Valley Medical Center03-16-2022 Miscellaneous Notes* Telephone Encounter - Eunice Bruce LPN - 07/14/2021 11:41 AM EDT Lab client services called. A1C added on to recent blood work. Eunice Bruce LPN * Telephone Encounter - Marilia Orozco APRN.CNP - 07/14/2021 10:17 AM EDT See of lab can add on A1c to recent blood work. Marilia Orozco APRN.RUBÉN documented in this encounterUpper Valley Medical Center02-03-2020 History of Past illness Narrative* Problem Noted Date Resolved Date Osteoarthritis of right hip 06/03/201909/2019 Right flank pain 02/04/2013 05/09/2014 Right kidney stone 02/04/2013 05/09/2014 Open fracture of distal phalangeal tuft 08/31/19 12 05/09/2014 Ingrowing nail 11/26/2007 05/09/2014 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 documented as of this encounter (statuses as of 10/06/2021) [facility] Narrative* Problem Noted Date Resolved Date Osteoarthritis of right hip 06/03/201909/2019 Right flank pain 02/04/2013 05/09/2014 Right kidney stone 02/04/2013 05/09/2014 Open fracture of distal phalangeal tuft 08/31/19 12 05/09/2014 Ingrowing nail 11/26/2007 05/09/2014 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 documented as of this encounter (statuses as of 10/19/2021) [facility] of [facility] illness Narrative* Problem Noted Date Resolved Date Osteoarthritis of right hip 06/03/20190 09/2019 Right flank pain 02/04/2013 05/09/2014 Right kidney stone 02/04/2013 05/09/2014 Open fracture of distal phalangeal tuft 08/31/19 12 05/09/2014 Ingrowing nail 11/26/2007 05/09/2014 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 documented as of this encounter (statuses as of 11/11/2021) [facility] Narrative* Problem Noted Date Resolved Date Osteoarthritis of right hip 06/03/201909/2019 Right flank pain 02/04/2013 05/09/2014 Right kidney stone 02/04/2013 05/09/2014 Open fracture of distal phalangeal tuft 08/31/19 12 05/09/2014 Ingrowing nail 11/26/2007 05/09/2014 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 documented as of this encounter (statuses as of 11/19/2021) [facility] Narrative* Problem Noted Date Resolved Date Osteoarthritis of right hip 06/03/201909/2019 Right flank pain 02/04/2013 05/09/2014 Right kidney stone 02/04/2013 05/09/2014 Open fracture of distal phalangeal tuft 08/31/1905/09/2014 Ingrowing nail 11/26/2007 05/09/2014 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 documented as of this encounter (statuses as of 12/02/2021) [facility] Narrative* Problem Noted Date Resolved Date Osteoarthritis of right hip 06/03/201909/2019 Right flank pain 02/04/2013 05/09/2014 Right kidney stone 02/04/2013 05/09/2014 Open fracture of distal phalangeal tuft 08/31/19 12 05/09/2014 Ingrowing nail 11/26/2007 05/09/2014 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 documented as of this encounter (statuses as of 12/09/2021) [facility] Narrative* Problem Noted Date Resolved Date Osteoarthritis of right hip 06/03/20190 09/2019 Right flank pain 02/04/2013 05/09/2014 Right kidney stone 02/04/2013 05/09/2014 Open fracture of distal phalangeal tuft 08/31/19 12 05/09/2014 Ingrowing nail 11/26/2007 05/09/2014 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 documented as of this encounter (statuses as of 12/17/2021) [facility] Narrative* Problem Noted Date Resolved Date Osteoarthritis of right hip 06/03/201909/2019 Right flank pain 02/04/2013 05/09/2014 Right kidney stone 02/04/2013 05/09/2014 Open fracture of distal phalangeal tuft 08/31/19 12 05/09/2014 Ingrowing nail 11/26/2007 05/09/2014 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 documented as of this encounter (statuses as of 12/20/2021) [facility] Narrative* Problem Noted Date Resolved Date Osteoarthritis of right hip 06/03/201909/2019 Right flank pain 02/04/2013 05/09/2014 Right kidney stone 02/04/2013 05/09/2014 Open fracture of distal phalangeal tuft 08/31/19 12 05/09/2014 Ingrowing nail 11/26/2007 05/09/2014 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 documented as of this encounter (statuses as of 12/27/2021) [facility] Narrative* Problem Noted Date Resolved Date Osteoarthritis of right hip 06/03/201909/2019 Right flank pain 02/04/2013 05/09/2014 Right kidney stone 02/04/2013 05/09/2014 Open fracture of distal phalangeal tuft 08/31/19 12 05/09/2014 Ingrowing nail 11/26/2007 05/09/2014 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 documented as of this encounter (statuses as of 12/30/2021) [facility] Narrative* Problem Noted Date Resolved Date Osteoarthritis of right hip 06/03/201909/2019 Right flank pain 02/04/2013 05/09/2014 Right kidney stone 02/04/2013 05/09/2014 Open fracture of distal phalangeal tuft 08/31/19 12 05/09/2014 Ingrowing nail 11/26/2007 05/09/2014 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 documented as of this encounter (statuses as of 01/04/2022) [facility] Narrative* Problem Noted Date Resolved Date Osteoarthritis of right hip 06/03/201909/2019 Right flank pain 02/04/2013 05/09/2014 Right kidney stone 02/04/2013 05/09/2014 Open fracture of distal phalangeal tuft 08/31/19 12 05/09/2014 Ingrowing nail 11/26/2007 05/09/2014 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 documented as of this encounter (statuses as of 01/10/2022) [facility] Narrative* Problem Noted Date Resolved Date Osteoarthritis of right hip 06/03/201909/2019 Right flank pain 02/04/2013 05/09/2014 Right kidney stone 02/04/2013 05/09/2014 Open fracture of distal phalangeal tuft 08/31/19 12 05/09/2014 Ingrowing nail 11/26/2007 05/09/2014 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 documented as of this encounter (statuses as of 01/12/2022) [facility] Narrative* Problem Noted Date Resolved Date Osteoarthritis of right hip 06/03/201909/2019 Right flank pain 02/04/2013 05/09/2014 Right kidney stone 02/04/2013 05/09/2014 Open fracture of distal phalangeal tuft 08/31/19 12 05/09/2014 Ingrowing nail 11/26/2007 05/09/2014 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 documented as of this encounter (statuses as of 01/17/2022) [facility] Narrative* Problem Noted Date Resolved Date Osteoarthritis of right hip 06/03/201909/2019 Right flank pain 02/04/2013 05/09/2014 Right kidney stone 02/04/2013 05/09/2014 Open fracture of distal phalangeal tuft 08/31/19 12 05/09/2014 Ingrowing nail 11/26/2007 05/09/2014 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 documented as of this encounter (statuses as of 01/20/2022) [facility]* Problem Noted Date Resolved Date Osteoarthritis of right hip 06/03/201909/2019 Right flank pain 02/04/2013 05/09/2014 Right kidney stone 02/04/2013 05/09/2014 Open fracture of distal phalangeal tuft 08/31/19 12 05/09/2014 Ingrowing nail 11/26/2007 05/09/2014 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 documented as of this encounter (statuses as of 01/24/2022) [facility]* Problem Noted Date Resolved Date Osteoarthritis of right hip 06/03/201909/2019 Right flank pain 02/04/2013 05/09/2014 Right kidney stone 02/04/2013 05/09/2014 Open fracture of distal phalangeal tuft 08/31/19 12 05/09/2014 Ingrowing nail 11/26/2007 05/09/2014 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 documented as of this encounter (statuses as of 01/31/2022) [facility]* Problem Noted Date Resolved Date Osteoarthritis of right hip 06/03/201909/2019 Right flank pain 02/04/2013 05/09/2014 Right kidney stone 02/04/2013 05/09/2014 Open fracture of distal phalangeal tuft 08/31/19 12 05/09/2014 Ingrowing nail 11/26/2007 05/09/2014 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 documented as of this encounter (statuses as of 02/03/2022) [facility]* Problem Noted Date Resolved Date Osteoarthritis of right hip 06/03/201909/2019 Right flank pain 02/04/2013 05/09/2014 Right kidney stone 02/04/2013 05/09/2014 Open fracture of distal phalangeal tuft 08/31/19 12 05/09/2014 Ingrowing nail 11/26/2007 05/09/2014 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 documented as of this encounter (statuses as of 02/11/2022) [facility]* Problem Noted Date Resolved Date Osteoarthritis of right hip 06/03/2019 020 09/2019 Right flank pain 02/04/2013 05/09/2014 Right kidney stone 02/04/2013 05/09/2014 Open fracture of distal phalangeal tuft 08/31/19 12 05/09/2014 Ingrowing nail 11/26/2007 05/09/2014 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 documented as of this encounter (statuses as of 04/12/2022) [facility]* Problem Noted Date Resolved Date Osteoarthritis of right hip 06/03/2019 020 09/2019 Right flank pain 02/04/2013 05/09/2014 Right kidney stone 02/04/2013 05/09/2014 Open fracture of distal phalangeal tuft 08/31/19 12 05/09/2014 Ingrowing nail 11/26/2007 05/09/2014 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 documented as of this encounter (statuses as of 04/14/2022) [facility]* Problem Noted Date Resolved Date Osteoarthritis of right hip 06/03/2019 020 09/2019 Right flank pain 02/04/2013 05/09/2014 Right kidney stone 02/04/2013 05/09/2014 Open fracture of distal phalangeal tuft 08/31/19 12 05/09/2014 Ingrowing nail 11/26/2007 05/09/2014 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 documented as of this encounter (statuses as of 05/23/2022) [facility]* Problem Noted Date Resolved Date Osteoarthritis of right hip 06/03/201909/2019 Right flank pain 02/04/2013 05/09/2014 Right kidney stone 02/04/2013 05/09/2014 Open fracture of distal phalangeal tuft 08/31/19 12 05/09/2014 Ingrowing nail 11/26/2007 05/09/2014 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 documented as of this encounter (statuses as of 06/10/2022) [facility]* Problem Noted Date Resolved Date Osteoarthritis of right hip 06/03/201909/2019 Right flank pain 02/04/2013 05/09/2014 Right kidney stone 02/04/2013 05/09/2014 Open fracture of distal phalangeal tuft 08/31/19 12 05/09/2014 Ingrowing nail 11/26/2007 05/09/2014 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 documented as of this encounter (statuses as of 08/09/2022) [facility]* Problem Noted Date Resolved Date Osteoarthritis of right hip 06/03/201909/2019 Right flank pain 02/04/2013 05/09/2014 Right kidney stone 02/04/2013 05/09/2014 Open fracture of distal phalangeal tuft 08/31/19 12 05/09/2014 Ingrowing nail 11/26/2007 05/09/2014 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 documented as of this encounter (statuses as of 11/02/2022) [facility] History of Past illness Narrative* Problem Noted Date Resolved Date Osteoarthritis of right hip 06/03/201909/2019 Right flank pain 02/04/2013 05/09/2014 Right kidney stone 02/04/2013 05/09/2014 Open fracture of distal phalangeal tuft 08/31/19 12 05/09/2014 Ingrowing nail 11/26/2007 05/09/2014 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 documented as of this encounter (statuses as of 11/03/2022) [facility] History of Past illness Narrative* Problem Noted Date Diagnosed Date Resolved Date Osteoarthritis of right hip 06/03/2019 06/06/2019 Right flank pain 02/04/2013 05/09/2014 Right kidney stone 02/04/2013 5 Open fracture of distal phalangeal tuft 08/31/2011 05/09/2014 Ingrowing nail 11/26/2007 05/09/2014 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/02/2006 05/09/2014 documented as of this encounter (statuses as of 11/09/2022) [facility] History of Past illness Narrative* Problem Noted Date Diagnosed Date Resolved Date Osteoarthritis of right hip 06/03/2019 06/06/2019 Right flank pain 02/04/2013 05/09/2014 Right kidney stone 02/04/2013 5 Open fracture of distal phalangeal tuft 08/31/2011 05/09/2014 Ingrowing nail 11/26/2007 05/09/2014 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/02/2006 05/09/2014 documented as of this encounter (statuses as of 11/09/2022) [facility] History of Past illness Narrative* Problem Noted Date Diagnosed Date Resolved Date Osteoarthritis of right hip 06/03/2019 06/06/2019 Right flank pain 02/04/2013 05/09/2014 Right kidney stone 02/04/2013 5 Open fracture of distal phalangeal tuft 08/31/2011 05/09/2014 Ingrowing nail 11/26/2007 05/09/2014 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/02/2006 05/09/2014 documented as of this encounter (statuses as of 11/29/2022) [facility] History of Past illness Narrative* Problem Noted Date Diagnosed Date Resolved Date Osteoarthritis of right hip 06/03/2019 06/06/2019 Right flank pain 02/04/2013 05/09/2014 Right kidney stone 02/04/2013 5 Open fracture of distal phalangeal tuft 08/31/2011 05/09/2014 Ingrowing nail 11/26/2007 05/09/2014 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/02/2006 05/09/2014 documented as of this encounter (statuses as of 12/01/2022) [facility] History of Past illness Narrative* Problem Noted Date Diagnosed Date Resolved Date Osteoarthritis of right hip 06/03/2019 06/06/2019 Right flank pain 02/04/2013 05/09/2014 Right kidney stone 02/04/2013 5 Open fracture of distal phalangeal tuft 08/31/2011 05/09/2014 Ingrowing nail 11/26/2007 05/09/2014 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/02/2006 05/09/2014 documented as of this encounter (statuses as of 12/07/2022) [facility] History of Past illness Narrative* Problem Noted Date Diagnosed Date Resolved Date Osteoarthritis of right hip 06/03/2019 06/06/2019 Right flank pain 02/04/2013 05/09/2014 Right kidney stone 02/04/2013 5 Open fracture of distal phalangeal tuft 08/31/2011 05/09/2014 Ingrowing nail 11/26/2007 05/09/2014 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/02/2006 05/09/2014 documented as of this encounter (statuses as of 12/08/2022) [facility] History of Past illness Narrative* Problem Noted Date Diagnosed Date Resolved Date Osteoarthritis of right hip 06/03/2019 06/06/2019 Right flank pain 02/04/2013 05/09/2014 Right kidney stone 02/04/2013 5 Open fracture of distal phalangeal tuft 08/31/2011 05/09/2014 Ingrowing nail 11/26/2007 05/09/2014 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/02/2006 05/09/2014 documented as of this encounter (statuses as of 12/09/2022) [facility] History of Past illness Narrative* Problem Noted Date Diagnosed Date Resolved Date Osteoarthritis of right hip 06/03/2019 06/06/2019 Right flank pain 02/04/2013 05/09/2014 Right kidney stone 02/04/2013 5 Open fracture of distal phalangeal tuft 08/31/2011 05/09/2014 Ingrowing nail 11/26/2007 05/09/2014 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/02/2006 05/09/2014 documented as of this encounter (statuses as of 12/16/2022) [facility] History of Past illness Narrative* Problem Noted Date Diagnosed Date Resolved Date Osteoarthritis of right hip 06/03/2019 06/06/2019 Right flank pain 02/04/2013 05/09/2014 Right kidney stone 02/04/2013 5 Open fracture of distal phalangeal tuft 08/31/2011 05/09/2014 Ingrowing nail 11/26/2007 05/09/2014 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/02/2006 05/09/2014 documented as of this encounter (statuses as of 12/22/2022) [facility] History of Past illness Narrative* Problem Noted Date Diagnosed Date Resolved Date Osteoarthritis of right hip 06/03/2019 06/06/2019 Right flank pain 02/04/2013 05/09/2014 Right kidney stone 02/04/2013 5 Open fracture of distal phalangeal tuft 08/31/2011 05/09/2014 Ingrowing nail 11/26/2007 05/09/2014 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/02/2006 05/09/2014 documented as of this encounter (statuses as of 12/28/2022) [facility] History of Past illness Narrative* Problem Noted Date Diagnosed Date Resolved Date Osteoarthritis of right hip 06/03/2019 06/06/2019 Right flank pain 02/04/2013 05/09/2014 Right kidney stone 02/04/2013 5 Open fracture of distal phalangeal tuft 08/31/2011 05/09/2014 Ingrowing nail 11/26/2007 05/09/2014 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/02/2006 05/09/2014 documented as of this encounter (statuses as of 12/29/2022) [facility] History of Past illness Narrative* Problem Noted Date Diagnosed Date Resolved Date Osteoarthritis of right hip 06/03/2019 06/06/2019 Right flank pain 02/04/2013 05/09/2014 Right kidney stone 02/04/2013 5 Open fracture of distal phalangeal tuft 08/31/2011 05/09/2014 Ingrowing nail 11/26/2007 05/09/2014 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/02/2006 05/09/2014 documented as of this encounter (statuses as of 01/23/2023) [facility] History of Past illness Narrative* Problem Noted Date Diagnosed Date Resolved Date Osteoarthritis of right hip 06/03/2019 06/06/2019 Right flank pain 02/04/2013 05/09/2014 Right kidney stone 02/04/2013 5 Open fracture of distal phalangeal tuft 08/31/2011 05/09/2014 Ingrowing nail 11/26/2007 05/09/2014 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/02/2006 05/09/2014 documented as of this encounter (statuses as of 02/08/2023) [facility] History of Past illness Narrative* Problem Noted Date Diagnosed Date Resolved Date Osteoarthritis of right hip 06/03/2019 06/06/2019 Right flank pain 02/04/2013 05/09/2014 Right kidney stone 02/04/2013 5 Open fracture of distal phalangeal tuft 08/31/2011 05/09/2014 Ingrowing nail 11/26/2007 05/09/2014 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/02/2006 05/09/2014 documented as of this encounter (statuses as of 03/08/2023) [facility] History of Past illness Narrative* Problem Noted Date Diagnosed Date Resolved Date Osteoarthritis of right hip 06/03/2019 06/06/2019 Right flank pain 02/04/2013 05/09/2014 Right kidney stone 02/04/2013 5 Open fracture of distal phalangeal tuft 08/31/2011 05/09/2014 Ingrowing nail 11/26/2007 05/09/2014 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/02/2006 05/09/2014 documented as of this encounter (statuses as of 03/14/2023) [facility] History of Past illness Narrative* Problem Noted Date Diagnosed Date Resolved Date Osteoarthritis of right hip 06/03/2019 06/06/2019 Right flank pain 02/04/2013 05/09/2014 Right kidney stone 02/04/2013 5 Open fracture of distal phalangeal tuft 08/31/2011 05/09/2014 Ingrowing nail 11/26/2007 05/09/2014 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/02/2006 05/09/2014 documented as of this encounter (statuses as of 03/20/2023) [facility] History of Past illness Narrative* Problem Noted Date Diagnosed Date Resolved Date Osteoarthritis of right hip 06/03/2019 06/06/2019 Right flank pain 02/04/2013 05/09/2014 Right kidney stone 02/04/2013 5 Open fracture of distal phalangeal tuft 08/31/2011 05/09/2014 Ingrowing nail 11/26/2007 05/09/2014 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/02/2006 05/09/2014 documented as of this encounter (statuses as of 06/16/2023) [facility] History of Past illness Narrative* Problem Noted Date Diagnosed Date Resolved Date Osteoarthritis of right hip 06/03/2019 06/06/2019 Right flank pain 02/04/2013 05/09/2014 Right kidney stone 02/04/2013 5 Open fracture of distal phalangeal tuft 08/31/2011 05/09/2014 Ingrowing nail 11/26/2007 05/09/2014 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/02/2006 05/09/2014 documented as of this encounter (statuses as of 06/22/2023) [facility] History of Past illness Narrative* Problem Noted Date Diagnosed Date Resolved Date Osteoarthritis of right hip 06/03/2019 06/06/2019 Right flank pain 02/04/2013 05/09/2014 Right kidney stone 02/04/2013 5 Open fracture of distal phalangeal tuft 08/31/2011 05/09/2014 Ingrowing nail 11/26/2007 05/09/2014 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/02/2006 05/09/2014 documented as of this encounter (statuses as of 07/08/2023) [facility] History of Past illness Narrative* Problem Noted Date Diagnosed Date Resolved Date Osteoarthritis of right hip 06/03/2019 06/06/2019 Right flank pain 02/04/2013 05/09/2014 Right kidney stone 02/04/2013 5 Open fracture of distal phalangeal tuft 08/31/2011 05/09/2014 Ingrowing nail 11/26/2007 05/09/2014 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/02/2006 05/09/2014 documented as of this encounter (statuses as of 08/01/2023) [facility] note Author Tevin [facility] Note Date/Time July 04, 2024 11:0 0am [facility] Medical Records Department [address] [place] [address] Anesthesia Postop Eval I 07/04/24 1059 MR#: [id number] Acct: [id number] Name: FRAN PAREKH Rep #:[id number] : 1945 78 From: Tevin Vizcaino PCP: Dr. Salvador Del Rosario MD Status :REG SD Y Race: C Location: [place] [address] Anesthesia: Postop Eval I Current Vital Signs [...] Tevin Barron Signature: Date CC: ~ Signed [facility] Work Phone: Consult note Author [facility] Note Date/Time October 07, 2024 12:50 pm [facility] Medical Records Department [address] [place] [address] Anesthesia Postop Eval I 10/07/24 1249 MR#: [id number] Acct: [id number] Name: FRAN PAREKH Rep #:[id number] : 1945 79 From: Tevin Vizcaino PCP: Dr. Salvador Del Rosario MD Status :REG SDC Y Race: C Location: [place] [address] Anesthesia: Postop Eval I Current Vital Signs [...] Tevin Barron Signature: Date CC: ~ Signed [facility] Work Phone: Consult note Author Tevin Vizcaino [facility] Note Date/Time December 26, 2024 2: 00pm [facility] Medical Records Department [address] [place] [address] Anesthesia Postop Eval I 12/26/24 1246 MR#: [id number] Acct: [id number] Name: MARINOFRAN KAY Rep #:[id number] : 1945 79 From: Tevin Vizcaino PCP: Dr. Salvador Del Rosario MD Status :REG [facility] Race: C Location: [place] [address] Anesthesia: Postop Eval I Current Vital Signs Temperature: 97.6 F Pulse Rate: 56 Blood Pressure: 131/82 Respiratory Rate: 16 Pulse Ox: 95 Oxygen Delivery Method: Room Air Assessment Airway patent: Yes Spontaneous unlabored respirations: Yes Mental status: Awake and Calm nausea: No Vomiting: No Anesthesia Complication: No Fluid Hydration Crystalloid volume administer (ml): 800 Total IV fluid infused: 800 Progress Note Anesthesia document: Postop Eval 1 completed: Yes 12/26/24 1246 <Electronically signed by Tevin Vizcaino > Date _ Tevin Barron Signature: Date CC: ~ Signed [facility] Work Phone: Consult note Author Freida Martino [facility] Note Date/Time December 26, 2024 2: 00pm [facility] Medical Records Department [address] [place] [address] Anesthesia Postop Eval II 12/26/24 1345 MR#: [id number] Acct: [id number] Name: FRAN PAREKH Rep #:[id number] : 1945 79 From: Freida ha CRNA PCP: Dr. Salvador Del Rosario MD Status :REG [facility] Race: C Location: [place] [address] Anesthesia Postop Eval I Sum Postop Eval Completion status Anesthesia document: Postop Eval 1 completed: Yes Anesthesia Postop Eval I Summary Anesthesia Postop Eval I Summary: Anesthesia Postop Eval I: Assessment Summary Airway patent Yes 12/26/24 12:46 [email or web address] Spontaneous unlabored Yes 12/26/24 12:46 [email or web address] respirations Mental status Awake,Calm 12/26/24 12:46 [email or web address] nausea No 12/26/24 12:46 [email or web address] Vomiting No 12/26/24 12:46 [email or web address] Anesthesia Postop Eval I: Fluid Summary Crystalloid volume administer 800 12/26/24 12:46 [email or web address] (ml) Colloids volume administered ( ml) Blood Product volume administered (ml) Total IV fluid infused 800 12/26/24 12:46 [email or web address] Anesthesia Postop Eval I: Summary Notes Anesthesia Complication No 12/26/24 12:46 [email or web address] Anesthesia Complication Comment: Post-operative progress note Anesthesia: Postop Eval II Evaluation Mental status: Awake and Calm Pain Level: 0 nausea: No Vomiting: No Complications Anesthesia Complication: No 12/26/24 1345 <Electronically signed by Freida santana CRNA> Date _ Freida Martino CRNA Cosigner Signature: Date CC: ~ Signed [facility] Work Phone: Discharge summary Author Manuel Alvarez [facility] Note Date/Time October 22, 2024 5:02 am [facility] Medical Records Department [address] [place] [address] Emergency Department Summary 10/22/24 MR#: [id number] Acct: [id number] Name: FRAN PAREKH Rep #:[id number] : 1945 79 From: Manuel Alvarez MD PCP: Dr. Salvador Del Rosario MD Status :REG ER Location: ED HPI History of Present Illness Chief Complaint: General Illness Informant: patient Narrative Narrative: 79-year-old male presents with nausea and vomiting for the last hour or 2 and feeling poorly. No abdominal pain, chest pain, cough, dyspnea. He states he felt like he was sweating. EMS was called because he felt poorly. EMS checked his temperature of 102.5, the patient did not know he had a fever prior to them checking. He states these symptoms he had in the past when he had biliary issues. He states in March he had an ERCP with biliary stent, stent was removed and then he had another ERCP 1.5-2 months ago, and the stent was placed back in. [facility] Medical History Carpal tunnel syndrome on both sides Cancer Wears glasses Thyroid disease Shingles Inguinal hernia Cardiology follow-up encounter History of stress test Choledocholithiasis Current use of snf 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 Elevated liver enzymes Pancreatic mass High [...] PO DAILY reduce fluid 03/26/24 10/06/24 History Held on 10/21/24. Instructions: does not think it does much levothyroxine 125 mcg tablet 125 mcg PO DAILY disorder of 03/26/24 10/06/24 History thyroid gland aspirin 81 mg tablet,delayed 81 mg PO DAILY 08/31/24 0 10/03/24 History release (Adult Aspirin Regimen) multivitamin (Daily Multi-Vitamin 1 tab PO DAILY 08/3110/06/24 History tablet) Allergy/AdvReac Type Severity Reaction Status Date / Time azithromycin (From Zithromax) Allergy Itching Verified 10/21/24 23:18 bee venom protein (honey bee) AdvReac Swelling Verified 10/21/24 23:18 venom-wasp (wasps) AdvReac Swelling Verified 10/21/24 23:18 Surgical History History of total right hip arthroplasty S/P carpal tunnel release History of tonsillectomy History of ERCP Social History Smoking Status: Never smoker ROS ROS ED Constitutional Constitutional ED: Reports fever(s), malaise and sweats; Denies chills Eyes Eyes: Denies change in vision or diplopia ENT ENT ED: Denies rhinorrhea or sore throat Cardiovascular Cardiovascular: Denies chest pain or palpitations Respiratory/Chest Respiratory/Chest: Denies cough or dyspnea Gastrointestinal Gastrointestinal: Reports nausea and vomiting; Denies abdominal pain, diarrhea, hematemesis or melena Genitourinary Genitourinary ED: Denies dysuria or hematuria Musculoskeletal Musculoskeletal: Denies back pain or neck pain Integumentary Denies abscess or rash Neurologic Neurologic: Denies headache(s), paresthesias or weakness Psychiatric Psychiatric: Denies anxiety or suicidal thoughts EXAM Physical Exam Const Vital Signs: 10/21/24 23:17 10/21/24 23:17 10/21/24 23:23 Temperature 100.1 F H 100.1 F H Temperature Source Oral Oral Pulse Rate 76 75 Respiratory Rate 16 16 Respiratory Effort Normal Non-Labored Respiratory Pattern Normal Blood Pressure 116/65 116/65 Blood Pressure Mean 82 82 Pulse Ox 98 94 Oxygen Delivery Method Room Air Room Air 10/22/24 00:17 10/22/24 00:21 10/22/24 00:23 Temperature 99.2 F H 99.2 F H Temperature Source Oral Oral Pulse Rate 81 66 Respiratory Rate 16 19 H Respiratory Effort Respiratory Pattern Blood Pressure 118/65 118/65 Blood Pressure Mean 82 82 Pulse Ox 98 95 93 Oxygen Delivery Method Room Air Room Air Room Air 10/22/24 01:00 10/22/24 02:00 10/22/24 03:00 Temperature 99.1 F 98.9 F 98.6 F Temperature Source Oral Oral Oral Pulse Rate 53 L 66 58 L Respiratory Rate 16 16 16 Respiratory Effort Respiratory Pattern Blood Pressure 125/66 H 118/59 L 97/59 L Blood Pressure Mean 85 78 71 Pulse Ox 94 95 98 Oxygen Delivery Method Room Air Room Air Room Air 10/22/24 04:00 10/22/24 04:03 Temperature 98.6 F 98.6 F Temperature Source Oral Pulse Rate 60 60 Respiratory Rate 15 15 Respiratory Effort Respiratory Pattern Blood Pressure 100/59 L 100/59 L Blood Pressure Mean 72 72 Pulse Ox 97 97 Oxygen Delivery Method Room Air Positive well nourished, well developed and obese General Appearance ED: well developed and NAD Nutritional Appearance: obese HEENT Reports moist mucous membranes normocephalic and atraumatic Eyes PERRL and EOMs intact bilaterally Neck full ROM and supple Resp normal respiratory effort and clear to auscultation bilaterally Cardio regular rate, regular rhythm and no murmurs Rate: Negative for tachycardic GI non-tender and non-distended Auscultation: normoactive bowel sounds Palpation: soft Back/Spine no CVA tenderness General Back: other FROM Extremity normal to inspection General Extremety ED: Yes edema; Negative for pulses abnormal or tenderness General Extremity: edema bilateral lower extremity Details: moderate (Symmetric,with changes of chronic stasis dermatitis bilaterally. Nontender. All compartments soft and nondistended.); Negative for pulses abnormal Neuro oriented x3, CN's II-XII intact bilaterally and no sensory deficits noted Sensorium / Orientation: awake and alert Motor Exam: strength 5/5 throughout Psych mental status grossly normal Skin no rashes or lesions noted and no wounds MDM MDM MDM Narrative Medical decision making narrative: Septic workup was obtained, searching for possible source for his infection as well. Two-view chest x-ray my interpretation negative for pneumonia, he was notable to give us urine as he accidentally spilled it when attempting to provide specimen but he has had no urinary symptoms or flank pain/CVA tenderness to suggest pyelonephritis. He had a true fever per EMS, 100.1 here in the ER and after Tylenol 98.6. Feeling better after IV fluids and Zofran. His abdomen is benign. He has a borderline white blood count with a left shift although there are no bands, and his liver enzymes are reassuringly normal although he had a total bilirubin of 0.8 in August when he had choledocholithiasis on ERCP. I discussed with Dr. Sher. He suggest out of concern for the possibility of early cholangitis since we do not have an alternative source at this time to treat him empirically with IV antibiotics and admit him and he would consult. Discussed with hospitalist as well, who requested a CT of the abdomen/pelvis be performed. This was done as requested. I reviewed the images and the report which I agree with. Nothing acute. Chronic abnormalities grossly unchanged. Presence of pneumobilia which can be present with biliary stent placement and isnot necessarily specific cholangitis. History & Record Review Additional record(s) reviewed:: Prior outpatient record (ERCP 08/2024: Choledocholithiasis, stones removed stent placed, ampulla of Vater lesion biopsied which was negative for malignancy) Lab Data Attestation: I reviewed the patient's lab results. Labs: Laboratory Results - last 24 hr 10/22/24 00:35 WBC 10.6 RBC 4.38 L Hgb 13.8 Hct 41.2 MCV 94.1 H MCH 31.5 MCHC 33.5 RDW Std Deviation 44.9 H RDW Coeff of Gisella 13.1 Plt Count 197 MPV 9.8 Immature Gran % (Auto) 0.500 Neut % (Auto) 88.6 H Lymph % (Auto) 4.8 L [place] % (Auto) 5.8 Eos % (Auto) 0.1 Baso % (Auto) 0.2 Absolute Neuts (auto) 9.4 H Absolute Lymphs (auto) 0.51 L Nucleated RBC % 0 PT 15.3 H INR 1.2 APTT 27.9 Sodium 140 Potassium 4.0 Chloride 104 Carbon Dioxide 23.7 Anion Gap 13 BUN 28 H Creatinine 1.86 H Estim Creat Clear Calc 43.92 L Est GFR (MDRD) Non-Af 36 L BUN/Creatinine Ratio 15.2 Glucose 189 H Lactic Acid 2.3 H* Calcium 8.5 Total Bilirubin 0.75 AST 28 ALT 33 Alkaline Phosphatase 93 Total Protein 6.2 Albumin 3.4 Globulin 2.8 Albumin/Globulin Ratio 1.2 Lipase 35 Radiography Diagnostic Testing: Clinical Impression(s) from Imaging Studies Chest X-Ray 10/22/24 00:48 IMPRESSION: No evidence for acute abnormality. Reading Location: [facility] Abdomen/Pelvis CT 10/22/24 04:02 IMPRESSION: Unchanged benign chronic calcified 1.8 cm lesion in the anterior mediastinum. Small sliding hiatal hernia. Diffuse thickening of the stomach suggestive of gastritis. Mild hepatic steatosis. CBD stent is noted. Pneumobilia is noted. Unchanged multiple cystic lesions of the pancreatic tail. Scattered right renal simple cysts are noted with the largest measuring 3.5 cm. Uncomplicated colonic diverticulosis. Unremarkable metallic prosthesis of the right hip. Mild diffuse spondylosis. Unchanged mild chronic compression deformity of T11 vertebral body. Decreased diffuse thickening of the gallbladder. Reading Location: [facility] Rhythm Strip Rhythm Strip: Sinus Rhythm Rate: 70 Ectopy: PAC(s) EKG Initial EKG: Attestation: I personally reviewed and interpreted this EKG as follows: Interpretation: Sinus Rhythm and No Acute Injury Pattern Management Discussion w/another healthcare provider: Hospitalist and Laser Technician (GI DrDarrel Friend) Discharge Plan Dx/Rx/DC Orders Clinical Impression: Fever, Vomiting, History of biliary stent insertion Disposition Disposition: Acute Care Hospital [facility] What to do if you have Problems For any increased pain, shortness of breath, bleeding, nausea or vomiting, chestpain, or any unexpected problems, contact your Primary Care Provider. Call [facility] ([phone]) or report to the closest Emergency Room. Call 911 if necessary. 10/22/24 0502 <Electronically signed by Manuel Alvarez MD> Cosigner Signature (if applicable): CC: Dr. Salvador Del Rosario MD ~ Signed [facility] Work Phone: Discharge summary Author Marleny Tena [facility] Note Date/Time October 24, 2024 12:3 5pm [facility] Medical Records Department [address] [place] [address] Instructions for Home/Discharge Instructions 10/24/24 1233 MR#: [id number] Acct: [id number] Name: FRAN PAREKH Rep #:[id number] : 1945 79 From: Marleny Tena DO PCP: Dr. Salvador Del Rosario MD Status :ADM IN Discharge Instructions Diet Discharge Diet: No restrictions DC O2, CPAP, BIPAP needs Home O2 Discharge instructions: No Dressing / Incision Discharge Activity: Return to Normal Activity Weight Bearing Status: Full weight bearing Follow Up Care Test Results: Test results from this visit will be discussed in further detail at your follow- up appointment, if applicable. Discharge Plan Admission Admit Date/Time: 10/22/24 04:38 Primary Reason for Your Visit: Fever of unknown origin Attending Provider: Marleny Tena Primary Care Provider: Salvador Del Rosario Consulting Providers: Werner Nunn Discharge Orders/Prescriptions Prescriptions: Continued lisinopril 40 MG tablet 40 mg PO DAILY Patient Comments: BLOOD PRESSURE atorvastatin 40 MG tablet 40 mg PO QHS Qty: 90 0RF Eliquis 5 mg tablet 5 mg PO BID levothyroxine 125 mcg tablet 125 mcg PO DAILY hydrochlorothiazide 25 mg tablet 25 mg PO DAILY multivitamin [Daily Multi-Vitamin] Tablet 1 tab PO DAILY aspirin [Adult Aspirin Regimen] 81 mg tablet,delayed release (DR/EC) 81 mg PO DAILY gabapentin 300 mg capsule 300 mg PO QHS metoprolol succinate 50 mg tablet extended release 24 hr 50 mg PO DAILY Referrals / Follow Up: Salvador Del Rosario MD [Primary Care Provider] - Disposition Disposition (needs filled in before D/C Order can be placed): Home, Self Care 10/24/24 7927<Electronically signed by Marleny Tena DO>Marleny Tena DO CC: Dr. Salvador Del Rosario MD; Dr. Werner Nunn DO ~ Signed [facility] Work Phone: evaluation noteN/ADept. of Dermatology Evaluation note* Diagnosis Cervical radiculopathy Brachial neuritis or radiculitis nos documented in this encounter [facility] note* Diagnosis Need for vaccination- Primary Need for prophylactic vaccination and inoculation against unspecified single disease documented in this encounter [facility] note* Diagnosis Need for vaccination- Primary Need for prophylactic vaccination and inoculation against unspecified single disease documented in this encounter [facility] note* Diagnosis Acute otitis externa of right ear, unspecified type- Primary [facility] Diagnosis Elevated glucose- Primary Other abnormal glucose documented in this encounter [facility] note* Diagnosis Stage 3b chronic kidney disease (HCC)- Primary [facility]* Diagnosis Chronic bilateral low back pain with bilateral sciatica At high risk for falls Personal history of fall Age-related physical debility Senility without mention of psychosis Personal history of fall documented in this encounter [facility] noteNo assessment information availableWWooster [facility] Work Phone: Evaluation note* Diagnosis ASHD (arteriosclerotic heart disease) Coronary atherosclerosis of unspecified type of vessel, council or graft Hyperlipidemia LDL goal <100 Other and unspecified hyperlipidemia documented in this encounter [facility] note* Diagnosis Chronic bilateral low back pain with bilateral sciatica- Primary Personal history of fall Age-related physical debility Senility without mention of psychosis documented in this encounter [facility] note* Diagnosis Chronic bilateral low back pain with bilateral sciatica- Primary Personal history of fall Age-related physical debility Senility without mention of psychosis [facility] Chronic bilateral low back pain with bilateral sciatica- Primary Personal history of fall Age-related physical debility Senility without mention of psychosis [facility] Diagnosis Chronic bilateral low back pain with bilateral sciatica- Primary Personal history of fall Age-related physical debility Senility without mention of psychosis [facility] Diagnosis Chronic bilateral low back pain with bilateral sciatica- Primary Personal history of fall Age-related physical debility Senility without mention of psychosis [facility] Diagnosis Chronic bilateral low back pain with bilateral sciatica- Primary Personal history of fall Age-related physical debility Senility without mention of psychosis [facility] Diagnosis Chronic bilateral low back pain with bilateral sciatica- Primary Personal history of fall Age-related physical debility Senility without mention of psychosis [facility] Diagnosis Chronic bilateral low back pain with bilateral sciatica- Primary Personal history of fall Age-related physical debility Senility without mention of psychosis [facility] Diagnosis MARTIN on CPAP- Primary Obstructive sleep apnea (adult) (pediatric) [facility] Diagnosis Medicare annual wellness visit, subsequent- Primary Routine general medical examination at a health care facility Essential hypertension, benign Stage 3b chronic kidney disease (HCC) Obesity, Class III, 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) Morbid obesity Acquired hypothyroidism Unspecified hypothyroidism Advance directive discussed with patient Other specified counseling MARTIN (obstructive sleep apnea) Obstructive sleep apnea (adult) (pediatric) [facility] Diagnosis URI, acute- Primary Acute upper respiratory infections of unspecified site [facility] Diagnosis Status post total replacement of right hip- Primary [facility] Diagnosis Essential hypertension, benign [facility] Diagnosis Essential hypertension, benign- Primary Hyperlipidemia [...] Coronary atherosclerosis of unspecified type of vessel, council or graft [facility] Diagnosis Essential hypertension, benign Stage 3b chronic kidney disease (HCC) Bilateral leg edema Edema ASHD (arteriosclerotic heart disease) Coronary atherosclerosis of unspecified type of vessel, council or graft [facility] Diagnosis Chronic bilateral low back pain with bilateral sciatica- Primary [facility] Diagnosis Chronic bilateral low back pain with bilateral sciatica- Primary [facility] Diagnosis Chronic bilateral low back pain with bilateral sciatica- Primary [facility] Diagnosis ASHD (arteriosclerotic heart disease) Coronary atherosclerosis of unspecified type of vessel, council or graft Hyperlipidemia LDL goal <100 Other and unspecified hyperlipidemia [facility] Diagnosis Chronic bilateral low back pain with bilateral sciatica- Primary [facility] Diagnosis Chronic bilateral low back pain with bilateral sciatica- Primary [facility] Diagnosis Chronic bilateral low back pain with bilateral sciatica- Primary [facility] Diagnosis Chronic bilateral low back pain with bilateral sciatica- Primary [facility] Diagnosis Chronic bilateral low back pain with bilateral sciatica- Primary [facility] Diagnosis Essential hypertension, benign [facility] Diagnosis ASHD (arteriosclerotic heart disease) Coronary atherosclerosis of unspecified type of vessel, council or graft Hyperlipidemia LDL goal <100 Other and unspecified hyperlipidemia [facility] Diagnosis Essential hypertension, benign- Primary [facility] Diagnosis Essential hypertension, benign- Primary Prediabetes Other abnormal glucose [facility] Diagnosis Essential hypertension, benign [facility] Diagnosis Essential hypertension, benign [facility] Diagnosis Rash- Primary Rash and other nonspecific skin eruption [facility] Diagnosis Acute saddle pulmonary embolism, unspecified whether acute cor pulmonale present (HCC)- [facility] Diagnosis Acute saddle pulmonary embolism, unspecified whether acute cor pulmonale present (HCC)- Primary Pulmonary HTN (HCC) Other chronic pulmonary heart diseases Acute deep vein thrombosis (DVT) of proximal vein of right lower extremity (HCC) Essential hypertension, benign MARTIN (obstructive sleep apnea) Obstructive sleep apnea (adult) (pediatric) Right leg swelling Swelling of limb [facility] Diagnosis Acute saddle pulmonary embolism, unspecified whether acute cor pulmonale present (HCC)- Primary Unsteady gait when walking [facility] Diagnosis Other secondary pulmonary hypertension (HCC)- Primary History of pulmonary embolism Personal history of pulmonary embolism [facility] Diagnosis Other secondary pulmonary hypertension (HCC) [facility] Diagnosis Pre-operative examination- Primary Preoperative examination, unspecified Primary osteoarthritis of right hip Primary localized osteoarthrosis, pelvic region and thigh 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 Hyperlipidemia LDL goal <100 Other and unspecified hyperlipidemia Essential hypertension, benign ASHD (arteriosclerotic heart disease) Coronary atherosclerosis of unspecified type of vessel, council or graft Right lower lobe lung mass [...] gait when walking [facility] Diagnosis Pre-operative examination- Primary Preoperative examination, unspecified Primary osteoarthritis of right hip Primary localized osteoarthrosis, pelvic region and thigh 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 Hyperlipidemia LDL goal <100 Other and unspecified hyperlipidemia Essential hypertension, benign ASHD (arteriosclerotic heart disease) Coronary atherosclerosis of unspecified type of vessel, council or graft Right lower lobe lung mass [...] venous thrombosis and embolism Current use of snf 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 Long-term (current) use of anticoagulants BMI 38.0-38.9,adult Body Mass Index 38.0-38.9, adult Other secondary pulmonary hypertension (HCC) Lower extremity edema Edema Stage 3a chronic kidney disease (HCC) [facility] Pre-operative examination- Primary Preoperative examination, unspecified Primary osteoarthritis of right hip Primary localized osteoarthrosis, pelvic region and thigh 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 Hyperlipidemia LDL goal <100 Other and unspecified hyperlipidemia Essential hypertension, benign ASHD (arteriosclerotic heart disease) Coronary atherosclerosis of unspecified type of vessel, council or graft Right lower lobe lung mass [...] Abnormality of gait [facility] Diagnosis Pre-operative examination- Primary Preoperative examination, unspecified Primary osteoarthritis of right hip Primary localized osteoarthrosis, pelvic region and thigh 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 Hyperlipidemia LDL goal <100 Other and unspecified hyperlipidemia Essential hypertension, benign ASHD (arteriosclerotic heart disease) Coronary atherosclerosis of unspecified type of vessel, council or graft Right lower lobe lung mass [...] Essential hypertension, benign [facility] Diagnosis Pre-operative examination- Primary Preoperative examination, unspecified Primary osteoarthritis of right hip Primary localized osteoarthrosis, pelvic region and thigh 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 Hyperlipidemia LDL goal <100 Other and unspecified hyperlipidemia Essential hypertension, benign ASHD (arteriosclerotic heart disease) Coronary atherosclerosis of unspecified type of vessel, council or graft Right lower lobe lung mass [...] Abnormality of gait [facility] Diagnosis Pre-operative examination- Primary Preoperative examination, unspecified Primary osteoarthritis of right hip Primary localized osteoarthrosis, pelvic region and thigh 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 Hyperlipidemia LDL goal <100 Other and unspecified hyperlipidemia Essential hypertension, benign ASHD (arteriosclerotic heart disease) Coronary atherosclerosis of unspecified type of vessel, council or graft Right lower lobe lung mass [...] Abnormality of gait [facility] Diagnosis Pre-operative examination- Primary Preoperative examination, unspecified Primary osteoarthritis of right hip Primary localized osteoarthrosis, pelvic region and thigh 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 Hyperlipidemia LDL goal <100 Other and unspecified hyperlipidemia Essential hypertension, benign ASHD (arteriosclerotic heart disease) Coronary atherosclerosis of unspecified type of vessel, council or graft Right lower lobe lung mass [...] with bilateral sciatica [facility] Diagnosis Pre-operative examination- Primary Preoperative examination, unspecified Primary osteoarthritis of right hip Primary localized osteoarthrosis, pelvic region and thigh 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 Hyperlipidemia LDL goal <100 Other and unspecified hyperlipidemia Essential hypertension, benign ASHD (arteriosclerotic heart disease) Coronary atherosclerosis of unspecified type of vessel, council or graft Right lower lobe lung mass [...] of pulmonary embolism [facility] Diagnosis Pre-operative examination- Primary Preoperative examination, unspecified Primary osteoarthritis of right hip Primary localized osteoarthrosis, pelvic region and thigh 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 Hyperlipidemia LDL goal <100 Other and unspecified hyperlipidemia Essential hypertension, benign ASHD (arteriosclerotic heart disease) Coronary atherosclerosis of unspecified type of vessel, council or graft Right lower lobe lung mass [...] Primary Generalized pain [facility] Diagnosis Pre-operative examination- Primary Preoperative examination, unspecified Primary osteoarthritis of right hip Primary localized osteoarthrosis, pelvic region and thigh 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 Hyperlipidemia LDL goal <100 Other and unspecified hyperlipidemia Essential hypertension, benign ASHD (arteriosclerotic heart disease) Coronary atherosclerosis of unspecified type of vessel, council or graft Right lower lobe lung mass [...] of right knee [facility] Diagnosis Pre-operative examination- Primary Preoperative examination, unspecified Primary osteoarthritis of right hip Primary localized osteoarthrosis, pelvic region and thigh 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 Hyperlipidemia LDL goal <100 Other and unspecified hyperlipidemia Essential hypertension, benign ASHD (arteriosclerotic heart disease) Coronary atherosclerosis of unspecified type of vessel, council or graft Right lower lobe lung mass [...] right lower leg [facility] Diagnosis Pre-operative examination- Primary Preoperative examination, unspecified Primary osteoarthritis of right hip Primary localized osteoarthrosis, pelvic region and thigh 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 Hyperlipidemia LDL goal <100 Other and unspecified hyperlipidemia Essential hypertension, benign ASHD (arteriosclerotic heart disease) Coronary atherosclerosis of unspecified type of vessel, council or graft Right lower lobe lung mass [...] of unspecified site [facility] Pre-operative examination- Primary Preoperative examination, unspecified Primary osteoarthritis of right hip Primary localized osteoarthrosis, pelvic region and thigh 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 Hyperlipidemia LDL goal <100 Other and unspecified hyperlipidemia Essential hypertension, benign ASHD (arteriosclerotic heart disease) Coronary atherosclerosis of unspecified type of vessel, council or graft Right lower lobe lung mass [...] of right knee [facility] Diagnosis Pre-operative examination- Primary Preoperative examination, unspecified Primary osteoarthritis of right hip Primary localized osteoarthrosis, pelvic region and thigh 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 Hyperlipidemia LDL goal <100 Other and unspecified hyperlipidemia Essential hypertension, benign ASHD (arteriosclerotic heart disease) Coronary atherosclerosis of unspecified type of vessel, council or graft Right lower lobe lung mass [...] Swelling of limb [facility] Pre-operative examination- Primary Preoperative examination, unspecified Primary osteoarthritis of right hip Primary localized osteoarthrosis, pelvic region and thigh 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 Hyperlipidemia LDL goal <100 Other and unspecified hyperlipidemia Essential hypertension, benign ASHD (arteriosclerotic heart disease) Coronary atherosclerosis of unspecified type of vessel, council or graft Right lower lobe lung mass [...] Swelling of limb [facility] Diagnosis Pre-operative examination- Primary Preoperative examination, unspecified Primary osteoarthritis of right hip Primary localized osteoarthrosis, pelvic region and thigh 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 Hyperlipidemia LDL goal <100 Other and unspecified hyperlipidemia Essential hypertension, benign ASHD (arteriosclerotic heart disease) Coronary atherosclerosis of unspecified type of vessel, council or graft Right lower lobe lung mass [...] Essential hypertension, benign [facility] Diagnosis Pre-operative examination- Primary Preoperative examination, unspecified Primary osteoarthritis of right hip Primary localized osteoarthrosis, pelvic region and thigh 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 Hyperlipidemia LDL goal <100 Other and unspecified hyperlipidemia Essential hypertension, benign ASHD (arteriosclerotic heart disease) Coronary atherosclerosis of unspecified type of vessel, council or graft Right lower lobe lung mass [...] wall, subsequent encounter [facility] Pre-operative examination- Primary Preoperative examination, unspecified Primary osteoarthritis of right hip Primary localized osteoarthrosis, pelvic region and thigh 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 Hyperlipidemia LDL goal <100 Other and unspecified hyperlipidemia Essential hypertension, benign ASHD (arteriosclerotic heart disease) Coronary atherosclerosis of unspecified type of vessel, council or graft Right lower lobe lung mass [...] Essential hypertension, benign [facility] Diagnosis Xerosis cutis- Primary Other specified disease of sebaceous glands 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 Multiple benign nevi Lentigo Other dyschromia Seborrheic keratosis documented in this encounter [facility] Work Phone: Evaluation note* Diagnosis Pre-operative examination- Primary Preoperative examination, unspecified Primary osteoarthritis of right hip Primary localized osteoarthrosis, pelvic region and thigh 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 Hyperlipidemia LDL goal <100 Other and unspecified hyperlipidemia Essential hypertension, benign ASHD (arteriosclerotic heart disease) Coronary atherosclerosis of unspecified type of vessel, council or graft Right lower lobe lung mass [...] Essential hypertension, benign [facility] Diagnosis Pre-operative examination- Primary Preoperative examination, unspecified Primary osteoarthritis of right hip Primary localized osteoarthrosis, pelvic region and thigh 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 Hyperlipidemia LDL goal <100 Other and unspecified hyperlipidemia Essential hypertension, benign ASHD (arteriosclerotic heart disease) Coronary atherosclerosis of unspecified type of vessel, council or graft Right lower lobe lung mass [...] Essential hypertension, benign [facility] Diagnosis Pre-operative examination- Primary Preoperative examination, unspecified Primary osteoarthritis of right hip Primary localized osteoarthrosis, pelvic region and thigh 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 Hyperlipidemia LDL goal <100 Other and unspecified hyperlipidemia Essential hypertension, benign ASHD (arteriosclerotic heart disease) Coronary atherosclerosis of unspecified type of vessel, council or graft Right lower lobe lung mass [...] of pulmonary embolism [facility] Diagnosis Pre-operative examination- Primary Preoperative examination, unspecified Primary osteoarthritis of right hip Primary localized osteoarthrosis, pelvic region and thigh 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 Hyperlipidemia LDL goal <100 Other and unspecified hyperlipidemia Essential hypertension, benign ASHD (arteriosclerotic heart disease) Coronary atherosclerosis of unspecified type of vessel, council or graft Right lower lobe lung mass [...] Primary Unspecified hypothyroidism [facility] Diagnosis Pre-operative examination- Primary Preoperative examination, unspecified Primary osteoarthritis of right hip Primary localized osteoarthrosis, pelvic region and thigh 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 Hyperlipidemia LDL goal <100 Other and unspecified hyperlipidemia Essential hypertension, benign ASHD (arteriosclerotic heart disease) Coronary atherosclerosis of unspecified type of vessel, council or graft Right lower lobe lung mass [...] abdominal location- Primary [facility] Diagnosis Pre-operative examination- Primary Preoperative examination, unspecified Primary osteoarthritis of right hip Primary localized osteoarthrosis, pelvic region and thigh 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 Hyperlipidemia LDL goal <100 Other and unspecified hyperlipidemia Essential hypertension, benign ASHD (arteriosclerotic heart disease) Coronary atherosclerosis of unspecified type of vessel, council or graft Right lower lobe lung mass [...] venous (peripheral) insufficiency documented in this encounter [facility] note* Diagnosis Pre-operative examination- Primary Preoperative examination, unspecified Primary osteoarthritis of right hip Primary localized osteoarthrosis, pelvic region and thigh 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 Hyperlipidemia LDL goal <100 Other and unspecified hyperlipidemia Essential hypertension, benign ASHD (arteriosclerotic heart disease) Coronary atherosclerosis of unspecified type of vessel, council or graft Right lower lobe lung mass [...] in joint, forearm [facility] Diagnosis Pre-operative examination- Primary Preoperative examination, unspecified Primary osteoarthritis of right hip Primary localized osteoarthrosis, pelvic region and thigh 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 Hyperlipidemia LDL goal <100 Other and unspecified hyperlipidemia Essential hypertension, benign ASHD (arteriosclerotic heart disease) Coronary atherosclerosis of unspecified type of vessel, council or graft Right lower lobe lung mass [...] Hospital discharge follow-up- Primary Other follow-up examination Cholangitis (HCC) Cholangitis Nausea and vomiting, unspecified vomiting type Fever of unknown origin Fever, unspecified [facility] Diagnosis Pre-operative examination- Primary Preoperative examination, unspecified Primary osteoarthritis of right hip Primary localized osteoarthrosis, pelvic region and thigh 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 Hyperlipidemia LDL goal <100 Other and unspecified hyperlipidemia Essential hypertension, benign ASHD (arteriosclerotic heart disease) Coronary atherosclerosis of unspecified type of vessel, council or graft Right lower lobe lung mass [...] in adult, unspecified whether serious comorbidity present MARTIN on CPAP- Primary Obstructive sleep apnea (adult) (pediatric) [facility] Diagnosis Pre-operative examination- Primary Preoperative examination, unspecified Primary osteoarthritis of right hip Primary localized osteoarthrosis, pelvic region and thigh 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 Hyperlipidemia LDL goal <100 Other and unspecified hyperlipidemia Essential hypertension, benign ASHD (arteriosclerotic heart disease) Coronary atherosclerosis of unspecified type of vessel, council or graft Right lower lobe lung mass [...] Essential hypertension, benign [facility] Diagnosis Pre-operative examination- Primary Preoperative examination, unspecified Primary osteoarthritis of right hip Primary localized osteoarthrosis, pelvic region and thigh 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 Hyperlipidemia LDL goal <100 Other and unspecified hyperlipidemia Essential hypertension, benign ASHD (arteriosclerotic heart disease) Coronary atherosclerosis of unspecified type of vessel, council or graft Right lower lobe lung mass [...] Essential hypertension, benign [facility] Diagnosis Nevus- Primary Benign neoplasm of skin, site unspecified Lentigo Other dyschromia Seborrheic keratosis Screening exam for skin cancer Screening for malignant neoplasm of the skin Xerosis cutis Other specified disease of sebaceous glands History of nonmelanoma skin cancer Neoplasm of uncertain behavior of skin Venous stasis dermatitis, unspecified laterality documented in this encounter [facility] Work Phone: History and physical note Author Alex Sher [facility] Note Date/Time July 04, 2024 10:0 1am [facility] Medical Records Department [address] [facility] [address] [facility] [place] [address] History & Physical Exam 07/04/24 0957 MR#: [id number] Acct: [id number] Name: FRAN PAREKH Rep #:[id number] : 1945 78 From: Alex Sher DO PCP: Dr. Salvador Del Rosario MD Status :[facility] Location: [place] [address] HPI - General General Date of Admission: 07/04/24 Date of Service: 07/04/24 Chief Complaint: Biliary stent removal HPI Narrative FRAN PAREKH, is a 78 M who presents for ERCP with stent removal. [facility] hospitalization 03.26.24 - 03.28.24 dizziness - consulted [...] know when his stent will be removed. [facility] Medical History Carpal tunnel syndrome on both sides Cancer Wears glasses Thyroid disease Shingles Inguinal hernia Cardiology follow-up encounter History of stress test Choledocholithiasis Current use of piece marker small arms 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 Elevated liver enzymes Pancreatic mass High [...] Cosigner Signature (if applicable): CC: Dr. Salvador Del Rosario MD; Alex Sher DO~ Signed [facility] Work Phone: Reason for referral (narrative)* Name Reason for referral NA NA Dept. of Dermatology Recpwy for referral (narrative)* Diagnostic Procedure Only (Routine) - Closed Specialty Diagnoses / Procedures Referred By Contac t Referred To Contact MOLECULAR & FUNCTIONAL IMAGING Diagnoses Other secondary pulmonary hypertension (HCC) Procedures NM LUNG VENT / PERF VQ PULMONARY VENTILATION & [place] [address] [place] [address] Molecular & Functional Imaging [address] [place] [address] Referral ID Status Reason Start Date Expiration Date V isits Requested Visits Authorized [id number] Closed Auto-Generate d Referral 11/09/2023 12/08/2024 1 1 [facility] for referral (narrative)* Diagnostic Procedure Only (Routine) - Closed Specialty Diagnoses / Procedures Referred By Contac t Referred To Contact XR IMAGING Diagnoses Chronic bilateral low back pain with bilateral sciatica Procedures XR LUMBAR GENERAL 3V AP/LAT/L5-S1 RADEX SPINE LUMBOSACRAL 2/3 VIEWS PodlogMarilia stuart APRN.CNP [address] [place] [address] [place] [id number] Referral ID Status Reason Start Date Expiration Date V isits Requested Visits Authorized [id number] Closed Auto-Generate d Referral 05/15/2023 06/13/2024 1 1 [facility] for referral (narrative)* Diagnostic Procedure Only (Urgent) - Closed Specialty Diagnoses / Procedures Referred By Contac t Referred To Contact US IMAGING Diagnoses Pain and swelling of right lower leg Procedures US DVT LOWER RIGHT DUP-SCAN XTR VEINS UNILATERAL/LIMITED STUDY PodlogMarilia stuart APRN.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 [address] [place] [address] [place] [address] Referral ID Status Reason Start Date Expiration Date V isits Requested Visits Authorized [id number] Closed Auto-Generate d Referral 01/19/2024 02/17/2025 1 1 [facility] for referral (narrative)* Diagnostic Procedure Only (Urgent) - Closed Specialty Diagnoses / Procedures Referred By Panda richards Referred To Contact US IMAGING Diagnoses Pain and swelling of right lower leg Procedures US DVT LOWER RIGHT DUP-SCAN XTR VEINS UNILATERAL/LIMITED STUDY LashandalogMarilia stuart APRN.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 [address] [place] [address] [place] [address] Referral ID Status Reason Start Date Expiration Date V isits Requested Visits Authorized [id number] Closed Auto-Generate d Referral 01/19/2024 02/17/2025 1 1 [facility] for referral (narrative)No reason for referral information [facility] Work Phone: Reason for visit Narrative* Outpatient Procedure (Routine) - Closed Specialty Diagnoses / Procedures Referred By Panda richards Referred To Contact [facility] Diagnoses Essential hypertension, benign Stage 3b chronic kidney disease (HCC) Bilateral leg edema ASHD (arteriosclerotic heart disease) Procedures ECHO ECHO TTHRC R-T 2D W/WOM-MODE COMPL SPEC&COLR D PodlogMarilia stuart APRN.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 [address] [place] [address] [facility] [place] [address] [facility] [place] [address] Referral ID Status Reason Start Date Expiration Date V isits Requested Visits Authorized [id number] Closed Auto-Generate d Referral 11/02/2022 11/02/2023 1 1 [facility] for visit Narrative* Diagnostic Procedure Only (Routine) - Closed Specialty Diagnoses / Procedures Referred By Contac t Referred To Contact MOLECULAR & FUNCTIONAL IMAGING Diagnoses Other secondary pulmonary hypertension (HCC) Procedures NM LUNG VENT / PERF VQ PULMONARY VENTILATION & PERFUSION IMAGING Victor Manuel Burrows, [address] [place] [address] Molecular & Functional Imaging [address] [place] [address] Referral ID Status Reason Start Date Expiration Date V isits Requested Visits Authorized [id number] Closed Auto-Generate d Referral 11/09/2023 12/08/2024 1 1 [facility] for visit Narrative* Diagnostic Procedure Only (Routine) - Closed Specialty Diagnoses / Procedures Referred By Contac t Referred To Contact XR IMAGING Diagnoses Chronic bilateral low back pain with bilateral sciatica Procedures XR LUMBAR GENERAL 3V AP/LAT/L5-S1 RADEX SPINE LUMBOSACRAL 2/3 VIEWS Podlogar, SELENE Capellan.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 [address] [place] [address] [place] [id number] Referral ID Status Reason Start Date Expiration Date V isits Requested Visits Authorized [id number] Closed Auto-Generate d Referral 05/15/2023 06/13/2024 1 1 [facility] for visit Narrative* Outpatient Procedure (Routine) - Closed Specialty Diagnoses / Procedures Referred By Katieac t Referred To Contact [facility] Diagnoses Other secondary pulmonary hypertension (HCC) History of pulmonary embolism Procedures ECHO ECHO TTHRC R-T 2D W/WOM-MODE COMPL SPEC&[place] [address] [place] [address] [facility] [place] [address] [place] [address] Referral ID Status Reason Start Date Expiration Date V isits Requested Visits Authorized [id number] Closed Auto-Generate d Referral 11/09/2023 11/08/2024 1 1 [facility] for visit Narrative* Diagnostic Procedure Only (Routine) - Closed Specialty Diagnoses / Procedures Referred By Contac t Referred To Contact XR IMAGING Diagnoses Acute pain of right knee Procedures XR KNEE GENERAL 4V AP BOTH/PA BOTH/LAT/MERC RIGHT RADIOLOGIC EXAM KNEE COMPLETE 4/[place] [address] [place] [address] [place] [address] Referral ID Status Reason Start Date Expiration Date V isits Requested Visits Authorized [id number] Closed Auto-Generate d Referral 01/18/2024 02/16/2025 1 1 [facility] for visit Narrative* Diagnostic Procedure Only (Urgent) - Closed Specialty Diagnoses / Procedures Referred By Contac t Referred To Contact US IMAGING Diagnoses Pain and swelling of right lower leg Procedures US DVT LOWER RIGHT DUP-SCAN XTR VEINS UNILATERAL/LIMITED STUDY PodlogMarilia stuart APRN.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 [address] [place] [address] [place] [address] Referral ID Status Reason Start Date Expiration Date V isits Requested Visits Authorized [id number] Closed Auto-Generate d Referral 01/19/2024 02/17/2025 1 1 [facility] for visit Narrative* Diagnostic Procedure Only (Urgent) - Closed Specialty Diagnoses / Procedures Referred By Contac t Referred To Contact XR IMAGING Diagnoses Left wrist pain Procedures XR WRIST GENERAL 3V PA/LAT/OBL LEFT RADEX WRIST COMPLETE MINIMUM 3 VIEWS PodlogarMarilia, 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 [address] [place] [address] Phone: tel: fax: [place] [address] Referral ID Status Reason Start Date Expiration Date V isits Requested Visits Authorized [id number] Closed Auto-Generate d Referral 10/08/2024 11/07/2025 1 1 [facility] Advance Directives No Advanced Directives Records Found Date Activated Date Inactivated Comments 10/23/2023 8:12 AM 10/27/2023 7:50 PM Question Answer Comments Full Code Order Discussed With: Patient Date Activated Date Inactivated Comments 06/08/2019 11:30 AM 01/17/2020 7:58 AM Documents on File Type Date Recorded Patient Asset Card Clerk Expl anation Advance Directive(s) 03/04/2020 7:50 AM [...] September 04, 2016 12 :17pm Power of Pipe And Tank Fabricator No September 04, 2016 12:17pm Date Activated [...] Date/ Time Living Will Yes March 26, 8:34am Power of Pipe And Tank Fabricator Yes March 26, 2024 8:34am Name of Medical Power of Pipe And Tank Fabricator Kyler Hernandez March 26, 2024 8:34am Living Will Yes July 02, 2024 2:53pm Power of Pipe And Tank Fabricator Yes July 02 2:53pm Name of Medical Power of Pipe And Tank Fabricator - ESTEFANIA ANGUIANO July 02, 2024 2:53pm Advance Directive Response Recorded Date/ Time Do you have a Healthcare Pow er of Pipe And Tank Fabricator? No August 31, 2024 11:32am Living Will Yes July 02, 2024 3:53pm Do you have a Healthcare Pow er of Pipe And Tank Fabricator? Yes July 02, 2024 3:53pm Name of Medical Power of Pipe And Tank Fabricator - ESTEFANIA ANGUIANO July 02, 2024 3:53pm Advance Directive Response Recorded Date/ Time Do you have a Healthcare Pow er of Pipe And Tank Fabricator? Yes October 03, 2024 10:22am Do you have a Healthcare Pow er of Pipe And Tank Fabricator? No August 31, 2024 11:32am Living Will Yes July 02, 2024 3:53pm Do you have a Healthcare Pow er of Pipe And Tank Fabricator? Yes July 02, 2024 3:53pm Name of Medical Power of Pipe And Tank Fabricator - ESTEFANIA ANGUIANO July 02, 2024 3:53pm Advance Directive Response Recorded Date/ Time Do you have a Healthcare Pow er of Pipe And Tank Fabricator? Yes October 03, 2024 10:22am Do you have a Healthcare Pow er of Pipe And Tank Fabricator? No August 31, 2024 11:32am Do you have a Healthcare Pow er of Pipe And Tank Fabricator? Yes October 21, 2024 11:17pm Living Will Yes July 02, 2024 3:53pm Do you have a Healthcare Pow er of Pipe And Tank Fabricator? Yes July 02, 2024 3:53pm Name of Medical Power of Pipe And Tank Fabricator - ESTEFANIA ANGUIANO July 02, 2024 3:53pm Advance Directive Response Recorded Date/ Time Do you have a Healthcare Pow er of Pipe And Tank Fabricator? Yes October 03, 2024 10:22am Do you have a Healthcare Pow er of Pipe And Tank Fabricator? No August 31, 2024 11:32am Do you have a Healthcare Pow er of Pipe And Tank Fabricator? Yes October 22, 2024 5:50am Living Will Yes July 02, 2024 3:53pm Do you have a Healthcare Pow er of Pipe And Tank Fabricator? Yes July 02, 2024 3:53pm Name of Medical Power of Pipe And Tank Fabricator - ESTEFANIA ANGUIANO July 02, 2024 3:53pm Advance Directive Response Recorded Date/ Time Do you have a Healthcare Power of Pipe And Tank Fabricator? Yes October 03, 2024 10:22am Do you have a Healthcare Power of Pipe And Tank Fabricator? No August 31, 2024 11:32am Do you have a Healthcare Power of Pipe And Tank Fabricator? Yes October 22, 2024 5:50am Advance Directive Response Recorded Date/ Time Do you have a Healthcare Power of Pipe And Tank Fabricator? Yes October 03, 2024 10:22am Do you have a Healthcare Power of Pipe And Tank Fabricator? No August 31, 2024 11:32am Do you have a Healthcare Power of Pipe And Tank Fabricator? Yes October 22, 2024 5:50am Do you have a Healthcare Power of Pipe And Tank Fabricator? 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 [address] [place] [address] [facility] [address] [address] Referral ID Status Reason Start Date Expiration Date Visits Requested Visits Authorized [id number] Authorized PCP Requested Referral Auto-Generate d Referral 11/02/2022 11/02/2023 99 99 Specialty Diagnoses / Procedures Referred By Contac t Referred To Contact [facility] Diagnoses Essential hypertension, benign Stage 3b chronic kidney disease (HCC) Bilateral leg edema ASHD (arteriosclerotic heart disease) Procedures ECHO ECHO TTHRC R-T 2D W/WOM-MODE COMPL SPEC&COLR D 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, 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, 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 [address] [place] [address] [facility] [address] [address] Referral ID Status Reason Start Date Expiration Date Visits Requested Visits Authorized [id number] Authorized Auto-Generat ed Referral 11/02/2022 11/02/2023 1 1 Specialty Diagnoses / Procedures Referred By Contac t Referred To Contact [facility] Diagnoses Unsteady gait when walking Procedures CONSULT TO PHYSICAL THERAPY PHYSICAL THERAPY EVALUATION HIGH COMPLEX 45 MINS Agnes Del Rosario MD [address] [place] [address] [facility] [address] [address] Referral ID Status Reason Start Date Expiration Date Visits Requested Visits Authorized [id number] Authorized PCP Requested Referral Auto-Generate d Referral 11/01/2023 10/31/2024 99 99 Specialty Diagnoses / Procedures Referred By Contac t Referred To Contact Vascular Medicine Diagnoses Other secondary pulmonary hypertension (HCC) History of pulmonary embolism Procedures CONSULT TO VASCULAR MEDICINE OFFICE/OUTPATIENT [facility]3] 60 MINUTES Victor Manuel Burrows, [address] [place] [address] Referral ID Status Reason Start Date Expiration Date Visits Requested Visits Authorized [id number] Authorized PCP Requested Referral 11/09/2023 11/08/2024 1 1 Specialty Diagnoses / Procedures Referred By Contac t Referred To Contact [facility] Diagnoses Other secondary pulmonary hypertension (HCC) History of pulmonary embolism Procedures ECHO ECHO TTHRC R-T 2D W/WOM-MODE COMPL SPEC&COLR D Victor Manuel Burrows, [address] [place] [address] [facility] [place] [address] [place] [address] Referral ID Status Reason Start Date Expiration Date Visits Requested Visits Authorized [id number] Authorized Auto-Generat ed Referral 11/09/2023 11/08/2024 1 1 Specialty Diagnoses / Procedures Referred By Contac t Referred To Contact MOLECULAR & FUNCTIONAL IMAGING Diagnoses Other secondary pulmonary hypertension (HCC) Procedures NM LUNG VENT / PERF VQ PULMONARY VENTILATION & PERFUSION IMAGING JessicaVictor Manuel leslie, [address] [place] [address] Molecular & Functional Imaging [address] [place] [address] Referral ID Status Reason Start Date Expiration Date Visits Requested Visits Authorized [id number] New Request Auto-Generat ed Referral 11/09/2023 12/08/2024 1 1 Specialty Diagnoses / Procedures Referred By Contac t Referred To Contact Orthopedics Diagnoses Acute pain of right knee Procedures CONSULT PANEL TO ORTHOPAEDICS OFFICE/OUTPATIENT [facility]3] 60 [place] [address] [place] [address] Referral ID Status Reason Start Date Expiration Date Visits Requested Visits Authorized [id number] Authorized PCP Requested Referral 01/18/2024 01/17/2025 1 1 Specialty Diagnoses / Procedures Referred By Contac t Referred To Contact XR IMAGING Diagnoses Acute pain of right knee Procedures XR KNEE GENERAL 4V AP BOTH/PA BOTH/LAT/MERC RIGHT RADIOLOGIC EXAM KNEE COMPLETE 4/[place] [address] [address] [place] [address] Xr Imaging [id number] Referral ID Status Reason Start Date Expiration Date V isits Requested Visits Authorized [id number] Closed Auto-Generate d Referral 01/18/2024 02/16/2025 1 1 Specialty Diagnoses / Procedures Referred By Contac t Referred To Contact MR IMAGING Diagnoses Acute pain of right knee Procedures MRI KNEE WO IVCON RIGHT MRI ANY JT LOWER EXTREM W/O CONTRAST MATRL PodlogMarilia stuart 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 [address] [place] [address] Mr Imaging [place] [address] Referral ID Status Reason Start Date Expiration Date Visits Requested Visits Authorized [id number] Authorized Auto-Generat ed Referral 01/24/2024 02/22/2025 1 1 Referral ID Status Reason Start Date Expiration Date V isits Requested Visits Authorized [id number] Closed Auto-Generate d Referral 01/24/2024 02/22/2025 1 [...] March 26, 2024 6:13am Current use of piece marker small arms 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 March 26, 2024 6:13am Elevated liver [...] 17, 2024 9:03am Spondylolisthesis, lumbar region August 20t 2024 9:03am Synovial cyst of lumbar facet joint September 17, 2024 9:03am 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 07, 2024 10: 24am Biliary stricture October 07, 2024 10:24 am Chief Complaint Admit Date CHOLEDCOHOLITHIASIS July 04, 2024 7:00 am Test Result July 23, 2024 8:2 1am abd August 31, 2024 11:20a m LUMBAR SPINE September 17, 2024 9:03a m Room 3 September 17, 2024 9:56a m PREOP October 07, 2024 10:52 am LACTIC ACIDOSIS N/V AND ROSSANA October 22 4:38am Reason for Visit Admit Date Biliary stricture [...] Biliary stricture October 07, 2024 10:24 am ROSSANA (acute kidney injury) October 22 4:38am Biliary stricture October 22, 2024 4:38 am Cholangitis October 22, 2024 4:38 am Fever October 22, 2024 4:38 am History of biliary stent insertion October 22, 2024 4:38am Lactic acidosis October 22, 2024 4:38 am Morbid obesity with BMI of 40.0-44.9, ad ult October 22, 2024 4:38am Nausea & vomiting October 22, 2024 4:38 am Pancreatic cyst October 22, 2024 4:38 am CKD stage 3a, GFR 45-59 ml/min September 4:38am Chief Complaint Admit Date CHOLEDCOHOLITHIASIS July 04, 2024 7:00 am Test Result July 23, 2024 8:2 1am abd August 31, 2024 11:20a m LUMBAR SPINE September 17, 2024 9:03a m Room 3 September 17, 2024 9:56a m PREOP October 07, 2024 10:52 am LACTIC ACIDOSIS N/V AND ROSSANA October 22, 2 025 4:38am LACTIC ACIDOSIS N/V AND ROSSANA October 22, 2 025 6:18pm LACTIC ACIDOSIS N/V AND ROSSANA October 23, 2 025 2:56pm LACTIC ACIDOSIS N/V AND ROSSANA October 23, 2 025 6:16pm Chief Complaint Admit Date Test Result July 23, 2024 8:2 1am abd August 31, 2024 11:20a m LUMBAR SPINE September 17, 2024 9:03a m Room 3 September 17, 2024 9:56a m PREOP October 07, 2024 10:52 am LACTIC ACIDOSIS N/V AND ROSSANA October 22, 2 025 4:38am LACTIC ACIDOSIS N/V AND ROSSANA October 22, 2 025 6:18pm LACTIC ACIDOSIS N/V AND ROSSANA October 23, 2 025 2:56pm LACTIC ACIDOSIS N/V AND ROSSANA October 23, 2 025 6:16pm LACTIC ACIDOSIS N/V AND ROSSANA October 24, 2 025 12:36pm LACTIC ACIDOSIS N/V AND ROSSANA October 24, 2 025 5:43pm 6 M FU November 06, 2024 8:18a m Reason for Visit Admit Date 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, 2024 8 :21am Choledocholithiasis July 23, 2024 8:2 1am Pancreatitis July 23, 2024 8:2 1am Pancreatic cyst July 23, 2024 8:2 1am Balance disorder September 17, 2024 9:03a m Lumbar scoliosis September 17, 2024 9:03a m 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 claudication September 17, 2024 9:03am Spondylolisthesis, lumbar region August 9:03am Synovial cyst of lumbar facet joint September 17, 2024 9:03am 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 07, 2024 10: 24am Biliary stricture October 07, 2024 10:24 am ROSSANA (acute kidney injury) October 22 4:38am Biliary stricture October 22, 2024 4:38 am Cholangitis October 22, 2024 4:38 am CKD stage 3a, GFR 45-59 ml/min September 4:38am Fever October 22, 2024 4:38 am History of biliary stent insertion October 22, 2024 4:38am Lactic acidosis October 22, 2024 4:38 am Morbid obesity with BMI of 40.0-44.9, ad ult October 22, 2024 4:38am Nausea & vomiting October 22, 2024 4:38 am Pancreatic cyst October 22, 2024 4:38 am Chief Complaint Admit Date abd August 31, 2024 11:20a m LUMBAR SPINE September 17, 2024 9:03a m Room 3 September 17, 2024 9:56a m PREOP October 07, 2024 10:52 am LACTIC ACIDOSIS N/V AND ROSSANA October 22, 2 025 4:38am LACTIC ACIDOSIS N/V AND ROSSANA October 22, 2 025 6:18pm LACTIC ACIDOSIS N/V AND ROSSANA October 23, 2 025 2:56pm LACTIC ACIDOSIS N/V AND ROSSANA October 23, 2 025 6:16pm LACTIC ACIDOSIS N/V AND ROSSANA October 24, 2 025 12:36pm LACTIC ACIDOSIS N/V AND ROSSANA October 24, 2 025 5:43pm 6 M FU November 06, 2024 8:18a m Reason for Visit Admit Date Balance disorder September 17, 2024 9:03a m Lumbar scoliosis September 17, 2024 9:03a m Spinal stenosis of lumbar re gion with neurogenic claudication September 17, 2024 9:03am Spondylolisthesis, lumbar region August 9:03am Synovial cyst of lumbar facet joint September 17, 2024 9:03am 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 07, 2024 10: 24am Biliary stricture October 07, 2024 10:24 am ROSSANA (acute kidney injury) October 22 4:38am Biliary stricture October 22, 2024 4:38 am Cholangitis October 22, 2024 4:38 am CKD stage 3a, GFR 45-59 ml/min September 4:38am Fever October 22, 2024 4:38 am History of biliary stent insertion October 22, 2024 4:38am Lactic acidosis October 22, 2024 4:38 am Morbid obesity with BMI of 40.0-44.9, ad ult October 22, 2024 4:38am Nausea & vomiting October 22, 2024 4:38 am Pancreatic cyst October 22, 2024 4:38 am Ampulla of Vater mass November 06, 2024 8:1 8am Choledocholithiasis November 06, 2024 8:18a m Fever November 06, 2024 8:18a m Choledocholithiasis December 26, 2024 9: 58am Additional Source Comments Source Comments (unrecognize d section and content) In the event this informatio n is protected by the Federal Confidentiality of Alcohol and Drug Abuse Patient Records regulations: The Federal rules restrict any use of the information to criminally investigate or prosecute any alcohol or drug abuse patient.[facility] the event this information is protected by the Federal Confidentiality of Alcohol and Drug Abuse Patient Records regulations: The Federal rules restrict any use of the information to criminally investigate or prosecute any alcohol or drug abuse patient.[facility] CenterIn the event this information is protected by the Federal Confidentiality of Alcohol and Drug Abuse Patient Records regulations: The Federal rules restrict any use of the information to criminally investigate or prosecute any alcohol or drug abuse patient.[facility] CenterIn the event this information is protected by the Federal Confidentiality of Alcohol and Drug Abuse Patient Records regulations: The Federal rules restrict any use of the information to criminally investigate or prosecute any alcohol or drug abuse patient.[facility] CenterIn the event this information is protected by the Federal Confidentiality of Alcohol and Drug Abuse Patient Records regulations: The Federal rules restrict any use of the information to criminally investigate or prosecute any alcohol or drug abuse patient.[facility] CenterIn the event this information is protected by the Federal Confidentiality of Alcohol and Drug Abuse Patient Records regulations: The Federal rules restrict any use of the information to criminally investigate or prosecute any alcohol or drug abuse patient.[facility] CenterIn the event this information is protected by the Federal Confidentiality of Alcohol and Drug Abuse Patient Records regulations: The Federal rules restrict any use of the information to criminally investigate or prosecute any alcohol or drug abuse patient.[facility] CenterIn the event this information is protected by the Federal Confidentiality of Alcohol and Drug Abuse Patient Records regulations: The Federal rules restrict any use of the information to criminally investigate or prosecute any alcohol or drug abuse patient.[facility] CenterIn the event this information is protected by the Federal Confidentiality of Alcohol and Drug Abuse Patient Records regulations: The Federal rules restrict any use of the information to criminally investigate or prosecute any alcohol or drug abuse patient.[facility] CenterIn the event this information is protected by the Federal Confidentiality of Alcohol and Drug Abuse Patient Records regulations: The Federal rules restrict any use of the information to criminally investigate or prosecute any alcohol or drug abuse patient.[facility] CenterIn the event this information is protected by the Federal Confidentiality of Alcohol and Drug Abuse Patient Records regulations: The Federal rules restrict any use of the information to criminally investigate or prosecute any alcohol or drug abuse patient.[facility] CenterIn the event this information is protected by the Federal Confidentiality of Alcohol and Drug Abuse Patient Records regulations: The Federal rules restrict any use of the information to criminally investigate or prosecute any alcohol or drug abuse patient.[facility] CenterIn the event this information is protected by the Federal Confidentiality of Alcohol and Drug Abuse Patient Records regulations: The Federal rules restrict any use of the information to criminally investigate or prosecute any alcohol or drug abuse patient.[facility] CenterIn the event this information is protected by the Federal Confidentiality of Alcohol and Drug Abuse Patient Records regulations: The Federal rules restrict any use of the information to criminally investigate or prosecute any alcohol or drug abuse patient.[facility] CenterIn the event this information is protected by the Federal Confidentiality of Alcohol and Drug Abuse Patient Records regulations: The Federal rules restrict any use of the information to criminally investigate or prosecute any alcohol or drug abuse patient.[facility] CenterIn the event this information is protected by the Federal Confidentiality of Alcohol and Drug Abuse Patient Records regulations: The Federal rules restrict any use of the information to criminally investigate or prosecute any alcohol or drug abuse patient.[facility] CenterIn the event this information is protected by the Federal Confidentiality of Alcohol and Drug Abuse Patient Records regulations: The Federal rules restrict any use of the information to criminally investigate or prosecute any alcohol or drug abuse patient.[facility] CenterIn the event this information is protected by the Federal Confidentiality of Alcohol and Drug Abuse Patient Records regulations: The Federal rules restrict any use of the information to criminally investigate or prosecute any alcohol or drug abuse patient.[facility] CenterIn the event this information is protected by the Federal Confidentiality of Alcohol and Drug Abuse Patient Records regulations: The Federal rules restrict any use of the information to criminally investigate or prosecute any alcohol or drug abuse patient.[facility] CenterIn the event this information is protected by the Federal Confidentiality of Alcohol and Drug Abuse Patient Records regulations: The Federal rules restrict any use of the information to criminally investigate or prosecute any alcohol or drug abuse patient.[facility] CenterIn the event this information is protected by the Federal Confidentiality of Alcohol and Drug Abuse Patient Records regulations: The Federal rules restrict any use of the information to criminally investigate or prosecute any alcohol or drug abuse patient.[facility] CenterIn the event this information is protected by the Federal Confidentiality of Alcohol and Drug Abuse Patient Records regulations: The Federal rules restrict any use of the information to criminally investigate or prosecute any alcohol or drug abuse patient.[facility] CenterIn the event this information is protected by the Federal Confidentiality of Alcohol and Drug Abuse Patient Records regulations: The Federal rules restrict any use of the information to criminally investigate or prosecute any alcohol or drug abuse patient.[facility] CenterIn the event this information is protected by the Federal Confidentiality of Alcohol and Drug Abuse Patient Records regulations: The Federal rules restrict any use of the information to criminally investigate or prosecute any alcohol or drug abuse patient.[facility] CenterIn the event this information is protected by the Federal Confidentiality of Alcohol and Drug Abuse Patient Records regulations: The Federal rules restrict any use of the information to criminally investigate or prosecute any alcohol or drug abuse patient.[facility] CenterIn the event this information is protected by the Federal Confidentiality of Alcohol and Drug Abuse Patient Records regulations: The Federal rules restrict any use of the information to criminally investigate or prosecute any alcohol or drug abuse patient.[facility] CenterIn the event this information is protected by the Federal Confidentiality of Alcohol and Drug Abuse Patient Records regulations: The Federal rules restrict any use of the information to criminally investigate or prosecute any alcohol or drug abuse patient.[facility] CenterIn the event this information is protected by the Federal Confidentiality of Alcohol and Drug Abuse Patient Records regulations: The Federal rules restrict any use of the information to criminally investigate or prosecute any alcohol or drug abuse patient.[facility] CenterIn the event this information is protected by the Federal Confidentiality of Alcohol and Drug Abuse Patient Records regulations: The Federal rules restrict any use of the information to criminally investigate or prosecute any alcohol or drug abuse patient.[facility] CenterIn the event this information is protected by the Federal Confidentiality of Alcohol and Drug Abuse Patient Records regulations: The Federal rules restrict any use of the information to criminally investigate or prosecute any alcohol or drug abuse patient.[facility] CenterIn the event this information is protected by the Federal Confidentiality of Alcohol and Drug Abuse Patient Records regulations: The Federal rules restrict any use of the information to criminally investigate or prosecute any alcohol or drug abuse patient.[facility] CenterIn the event this information is protected by the Federal Confidentiality of Alcohol and Drug Abuse Patient Records regulations: The Federal rules restrict any use of the information to criminally investigate or prosecute any alcohol or drug abuse patient.[facility] CenterIn the event this information is protected by the Federal Confidentiality of Alcohol and Drug Abuse Patient Records regulations: The Federal rules restrict any use of the information to criminally investigate or prosecute any alcohol or drug abuse patient.[facility] CenterIn the event this information is protected by the Federal Confidentiality of Alcohol and Drug Abuse Patient Records regulations: The Federal rules restrict any use of the information to criminally investigate or prosecute any alcohol or drug abuse patient.[facility] CenterIn the event this information is protected by the Federal Confidentiality of Alcohol and Drug Abuse Patient Records regulations: The Federal rules restrict any use of the information to criminally investigate or prosecute any alcohol or drug abuse patient.[facility] CenterIn the event this information is protected by the Federal Confidentiality of Alcohol and Drug Abuse Patient Records regulations: The Federal rules restrict any use of the information to criminally investigate or prosecute any alcohol or drug abuse patient.[facility] CenterIn the event this information is protected by the Federal Confidentiality of Alcohol and Drug Abuse Patient Records regulations: The Federal rules restrict any use of the information to criminally investigate or prosecute any alcohol or drug abuse patient.[facility] CenterIn the event this information is protected by the Federal Confidentiality of Alcohol and Drug Abuse Patient Records regulations: The Federal rules restrict any use of the information to criminally investigate or prosecute any alcohol or drug abuse patient.[facility] CenterIn the event this information is protected by the Federal Confidentiality of Alcohol and Drug Abuse Patient Records regulations: The Federal rules restrict any use of the information to criminally investigate or prosecute any alcohol or drug abuse patient.[facility] CenterIn the event this information is protected by the Federal Confidentiality of Alcohol and Drug Abuse Patient Records regulations: The Federal rules restrict any use of the information to criminally investigate or prosecute any alcohol or drug abuse patient.[facility] CenterIn the event this information is protected by the Federal Confidentiality of Alcohol and Drug Abuse Patient Records regulations: The Federal rules restrict any use of the information to criminally investigate or prosecute any alcohol or drug abuse patient.[facility] CenterIn the event this information is protected by the Federal Confidentiality of Alcohol and Drug Abuse Patient Records regulations: The Federal rules restrict any use of the information to criminally investigate or prosecute any alcohol or drug abuse patient.[facility] CenterIn the event this information is protected by the Federal Confidentiality of Alcohol and Drug Abuse Patient Records regulations: The Federal rules restrict any use of the information to criminally investigate or prosecute any alcohol or drug abuse patient.[facility] CenterIn the event this information is protected by the Federal Confidentiality of Alcohol and Drug Abuse Patient Records regulations: The Federal rules restrict any use of the information to criminally investigate or prosecute any alcohol or drug abuse patient.[facility] CenterIn the event this information is protected by the Federal Confidentiality of Alcohol and Drug Abuse Patient Records regulations: The Federal rules restrict any use of the information to criminally investigate or prosecute any alcohol or drug abuse patient.[facility] CenterIn the event this information is protected by the Federal Confidentiality of Alcohol and Drug Abuse Patient Records regulations: The Federal rules restrict any use of the information to criminally investigate or prosecute any alcohol or drug abuse patient.[facility] CenterIn the event this information is protected by the Federal Confidentiality of Alcohol and Drug Abuse Patient Records regulations: The Federal rules restrict any use of the information to criminally investigate or prosecute any alcohol or drug abuse patient.[facility] CenterIn the event this information is protected by the Federal Confidentiality of Alcohol and Drug Abuse Patient Records regulations: The Federal rules restrict any use of the information to criminally investigate or prosecute any alcohol or drug abuse patient.[facility] CenterIn the event this information is protected by the Federal Confidentiality of Alcohol and Drug Abuse Patient Records regulations: The Federal rules restrict any use of the information to criminally investigate or prosecute any alcohol or drug abuse patient.[facility] CenterIn the event this information is protected by the Federal Confidentiality of Alcohol and Drug Abuse Patient Records regulations: The Federal rules restrict any use of the information to criminally investigate or prosecute any alcohol or drug abuse patient.[facility] CenterIn the event this information is protected by the Federal Confidentiality of Alcohol and Drug Abuse Patient Records regulations: The Federal rules restrict any use of the information to criminally investigate or prosecute any alcohol or drug abuse patient.[facility] CenterIn the event this information is protected by the Federal Confidentiality of Alcohol and Drug Abuse Patient Records regulations: The Federal rules restrict any use of the information to criminally investigate or prosecute any alcohol or drug abuse patient.[facility] CenterIn the event this information is protected by the Federal Confidentiality of Alcohol and Drug Abuse Patient Records regulations: The Federal rules restrict any use of the information to criminally investigate or prosecute any alcohol or drug abuse patient.[facility] CenterIn the event this information is protected by the Federal Confidentiality of Alcohol and Drug Abuse Patient Records regulations: The Federal rules restrict any use of the information to criminally investigate or prosecute any alcohol or drug abuse patient.[facility] CenterIn the event this information is protected by the Federal Confidentiality of Alcohol and Drug Abuse Patient Records regulations: The Federal rules restrict any use of the information to criminally investigate or prosecute any alcohol or drug abuse patient.[facility] CenterIn the event this information is protected by the Federal Confidentiality of Alcohol and Drug Abuse Patient Records regulations: The Federal rules restrict any use of the information to criminally investigate or prosecute any alcohol or drug abuse patient.[facility] CenterIn the event this information is protected by the Federal Confidentiality of Alcohol and Drug Abuse Patient Records regulations: The Federal rules restrict any use of the information to criminally investigate or prosecute any alcohol or drug abuse patient.[facility]In the event this information is protected by the Federal Confidentiality of Alcohol and Drug Abuse Patient Records regulations: The Federal rules restrict any use of the information to criminally investigate or prosecute any alcohol or drug abuse patient.[facility]In the event this information is protected by the Federal Confidentiality of Alcohol and Drug Abuse Patient Records regulations: The Federal rules restrict any use of the information to criminally investigate or prosecute any alcohol or drug abuse patient.[facility]In the event this information is protected by the Federal Confidentiality of Alcohol and Drug Abuse Patient Records regulations: The Federal rules restrict any use of the information to criminally investigate or prosecute any alcohol or drug abuse patient.[facility]In the event this information is protected by the Federal Confidentiality of Alcohol and Drug Abuse Patient Records regulations: The Federal rules restrict any use of the information to criminally investigate or prosecute any alcohol or drug abuse patient.[facility]In the event this information is protected by the Federal Confidentiality of Alcohol and Drug Abuse Patient Records regulations: The Federal rules restrict any use of the information to criminally investigate or prosecute any alcohol or drug abuse patient.[facility]In the event this information is protected by the Federal Confidentiality of Alcohol and Drug Abuse Patient Records regulations: The Federal rules restrict any use of the information to criminally investigate or prosecute any alcohol or drug abuse patient.[facility]In the event this information is protected by the Federal Confidentiality of Alcohol and Drug Abuse Patient Records regulations: The Federal rules restrict any use of the information to criminally investigate or prosecute any alcohol or drug abuse patient.[facility] CenterIn the event this information is protected by the Federal Confidentiality of Alcohol and Drug Abuse Patient Records regulations: The Federal rules restrict any use of the information to criminally investigate or prosecute any alcohol or drug abuse patient.[facility]In the event this information is protected by the Federal Confidentiality of Alcohol and Drug Abuse Patient Records regulations: The Federal rules restrict any use of the information to criminally investigate or prosecute any alcohol or drug abuse patient.[facility] CenterIn the event this information is protected by the Federal Confidentiality of Alcohol and Drug Abuse Patient Records regulations: The Federal rules restrict any use of the information to criminally investigate or prosecute any alcohol or drug abuse patient.[facility]In the event this information is protected by the Federal Confidentiality of Alcohol and Drug Abuse Patient Records regulations: The Federal rules restrict any use of the information to criminally investigate or prosecute any alcohol or drug abuse patient.[facility] CenterIn the event this information is protected by the Federal Confidentiality of Alcohol and Drug Abuse Patient Records regulations: The Federal rules restrict any use of the information to criminally investigate or prosecute any alcohol or drug abuse patient.[facility] CenterIn the event this information is protected by the Federal Confidentiality of Alcohol and Drug Abuse Patient Records regulations: The Federal rules restrict any use of the information to criminally investigate or prosecute any alcohol or drug abuse patient.[facility] CenterIn the event this information is protected by the Federal Confidentiality of Alcohol and Drug Abuse Patient Records regulations: The Federal rules restrict any use of the information to criminally investigate or prosecute any alcohol or drug abuse patient.[facility]In the event this information is protected by the Federal Confidentiality of Alcohol and Drug Abuse Patient Records regulations: The Federal rules restrict any use of the information to criminally investigate or prosecute any alcohol or drug abuse patient.[facility] CenterIn the event this information is protected by the Federal Confidentiality of Alcohol and Drug Abuse Patient Records regulations: The Federal rules restrict any use of the information to criminally investigate or prosecute any alcohol or drug abuse patient.[facility] CenterIn the event this information is protected by the Federal Confidentiality of Alcohol and Drug Abuse Patient Records regulations: The Federal rules restrict any use of the information to criminally investigate or prosecute any alcohol or drug abuse patient.[facility] CenterIn the event this information is protected by the Federal Confidentiality of Alcohol and Drug Abuse Patient Records regulations: The Federal rules restrict any use of the information to criminally investigate or prosecute any alcohol or drug abuse patient.[facility] CenterIn the event this information is protected by the Federal Confidentiality of Alcohol and Drug Abuse Patient Records regulations: The Federal rules restrict any use of the information to criminally investigate or prosecute any alcohol or drug abuse patient.[facility] CenterIn the event this information is protected by the Federal Confidentiality of Alcohol and Drug Abuse Patient Records regulations: The Federal rules restrict any use of the information to criminally investigate or prosecute any alcohol or drug abuse patient.[facility] CenterIn the event this information is protected by the Federal Confidentiality of Alcohol and Drug Abuse Patient Records regulations: The Federal rules restrict any use of the information to criminally investigate or prosecute any alcohol or drug abuse patient.[facility] CenterIn the event this information is protected by the Federal Confidentiality of Alcohol and Drug Abuse Patient Records regulations: The Federal rules restrict any use of the information to criminally investigate or prosecute any alcohol or drug abuse patient.[facility] CenterIn the event this information is protected by the Federal Confidentiality of Alcohol and Drug Abuse Patient Records regulations: The Federal rules restrict any use of the information to criminally investigate or prosecute any alcohol or drug abuse patient.[facility] CenterIn the event this information is protected by the Federal Confidentiality of Alcohol and Drug Abuse Patient Records regulations: The Federal rules restrict any use of the information to criminally investigate or prosecute any alcohol or drug abuse patient.[facility] CenterIn the event this information is protected by the Federal Confidentiality of Alcohol and Drug Abuse Patient Records regulations: The Federal rules restrict any use of the information to criminally investigate or prosecute any alcohol or drug abuse patient.[facility] CenterIn the event this information is protected by the Federal Confidentiality of Alcohol and Drug Abuse Patient Records regulations: The Federal rules restrict any use of the information to criminally investigate or prosecute any alcohol or drug abuse patient.[facility] CenterIn the event this information is protected by the Federal Confidentiality of Alcohol and Drug Abuse Patient Records regulations: The Federal rules restrict any use of the information to criminally investigate or prosecute any alcohol or drug abuse patient.[facility] CenterIn the event this information is protected by the Federal Confidentiality of Alcohol and Drug Abuse Patient Records regulations: The Federal rules restrict any use of the information to criminally investigate or prosecute any alcohol or drug abuse patient.[facility] CenterIn the event this information is protected by the Federal Confidentiality of Alcohol and Drug Abuse Patient Records regulations: The Federal rules restrict any use of the information to criminally investigate or prosecute any alcohol or drug abuse patient.[facility] CenterIn the event this information is protected by the Federal Confidentiality of Alcohol and Drug Abuse Patient Records regulations: The Federal rules restrict any use of the information to criminally investigate or prosecute any alcohol or drug abuse patient.[facility] CenterIn the event this information is protected by the Federal Confidentiality of Alcohol and Drug Abuse Patient Records regulations: The Federal rules restrict any use of the information to criminally investigate or prosecute any alcohol or drug abuse patient.[facility] CenterIn the event this information is protected by the Federal Confidentiality of Alcohol and Drug Abuse Patient Records regulations: The Federal rules restrict any use of the information to criminally investigate or prosecute any alcohol or drug abuse patient.[facility] CenterIn the event this information is protected by the Federal Confidentiality of Alcohol and Drug Abuse Patient Records regulations: The Federal rules restrict any use of the information to criminally investigate or prosecute any alcohol or drug abuse patient.[facility] CenterIn the event this information is protected by the Federal Confidentiality of Alcohol and Drug Abuse Patient Records regulations: The Federal rules restrict any use of the information to criminally investigate or prosecute any alcohol or drug abuse patient.[facility] CenterIn the event this information is protected by the Federal Confidentiality of Alcohol and Drug Abuse Patient Records regulations: The Federal rules restrict any use of the information to criminally investigate or prosecute any alcohol or drug abuse patient.[facility] CenterIn the event this information is protected by the Federal Confidentiality of Alcohol and Drug Abuse Patient Records regulations: The Federal rules restrict any use of the information to criminally investigate or prosecute any alcohol or drug abuse patient.[facility] CenterIn the event this information is protected by the Federal Confidentiality of Alcohol and Drug Abuse Patient Records regulations: The Federal rules restrict any use of the information to criminally investigate or prosecute any alcohol or drug abuse patient.[facility] CenterIn the event this information is protected by the Federal Confidentiality of Alcohol and Drug Abuse Patient Records regulations: The Federal rules restrict any use of the information to criminally investigate or prosecute any alcohol or drug abuse patient.[facility] CenterIn the event this information is protected by the Federal Confidentiality of Alcohol and Drug Abuse Patient Records regulations: The Federal rules restrict any use of the information to criminally investigate or prosecute any alcohol or drug abuse patient.[facility] CenterIn the event this information is protected by the Federal Confidentiality of Alcohol and Drug Abuse Patient Records regulations: The Federal rules restrict any use of the information to criminally investigate or prosecute any alcohol or drug abuse patient.[facility] CenterIn the event this information is protected by the Federal Confidentiality of Alcohol and Drug Abuse Patient Records regulations: The Federal rules restrict any use of the information to criminally investigate or prosecute any alcohol or drug abuse patient.[facility] CenterIn the event this information is protected by the Federal Confidentiality of Alcohol and Drug Abuse Patient Records regulations: The Federal rules restrict any use of the information to criminally investigate or prosecute any alcohol or drug abuse patient.[facility] CenterIn the event this information is protected by the Federal Confidentiality of Alcohol and Drug Abuse Patient Records regulations: The Federal rules restrict any use of the information to criminally investigate or prosecute any alcohol or drug abuse patient.[facility] CenterIn the event this information is protected by the Federal Confidentiality of Alcohol and Drug Abuse Patient Records regulations: The Federal rules restrict any use of the information to criminally investigate or prosecute any alcohol or drug abuse patient.[facility] CenterIn the event this information is protected by the Federal Confidentiality of Alcohol and Drug Abuse Patient Records regulations: The Federal rules restrict any use of the information to criminally investigate or prosecute any alcohol or drug abuse patient.[facility] CenterIn the event this information is protected by the Federal Confidentiality of Alcohol and Drug Abuse Patient Records regulations: The Federal rules restrict any use of the information to criminally investigate or prosecute any alcohol or drug abuse patient.[facility] CenterIn the event this information is protected by the Federal Confidentiality of Alcohol and Drug Abuse Patient Records regulations: The Federal rules restrict any use of the information to criminally investigate or prosecute any alcohol or drug abuse patient.[facility] CenterIn the event this information is protected by the Federal Confidentiality of Alcohol and Drug Abuse Patient Records regulations: The Federal rules restrict any use of the information to criminally investigate or prosecute any alcohol or drug abuse patient.[facility] CenterIn the event this information is protected by the Federal Confidentiality of Alcohol and Drug Abuse Patient Records regulations: The Federal rules restrict any use of the information to criminally investigate or prosecute any alcohol or drug abuse patient.[facility] CenterIn the event this information is protected by the Federal Confidentiality of Alcohol and Drug Abuse Patient Records regulations: The Federal rules restrict any use of the information to criminally investigate or prosecute any alcohol or drug abuse patient.[facility] CenterIn the event this information is protected by the Federal Confidentiality of Alcohol and Drug Abuse Patient Records regulations: The Federal rules restrict any use of the information to criminally investigate or prosecute any alcohol or drug abuse patient.[facility] CenterIn the event this information is protected by the Federal Confidentiality of Alcohol and Drug Abuse Patient Records regulations: The Federal rules restrict any use of the information to criminally investigate or prosecute any alcohol or drug abuse patient.[facility] CenterIn the event this information is protected by the Federal Confidentiality of Alcohol and Drug Abuse Patient Records regulations: The Federal rules restrict any use of the information to criminally investigate or prosecute any alcohol or drug abuse patient.[facility] CenterIn the event this information is protected by the Federal Confidentiality of Alcohol and Drug Abuse Patient Records regulations: The Federal rules restrict any use of the information to criminally investigate or prosecute any alcohol or drug abuse patient.[facility] CenterIn the event this information is protected by the Federal Confidentiality of Alcohol and Drug Abuse Patient Records regulations: The Federal rules restrict any use of the information to criminally investigate or prosecute any alcohol or drug abuse patient.[facility] CenterIn the event this information is protected by the Federal Confidentiality of Alcohol and Drug Abuse Patient Records regulations: The Federal rules restrict any use of the information to criminally investigate or prosecute any alcohol or drug abuse patient.[facility] CenterIn the event this information is protected by the Federal Confidentiality of Alcohol and Drug Abuse Patient Records regulations: The Federal rules restrict any use of the information to criminally investigate or prosecute any alcohol or drug abuse patient.[facility] CenterIn the event this information is protected by the Federal Confidentiality of Alcohol and Drug Abuse Patient Records regulations: The Federal rules restrict any use of the information to criminally investigate or prosecute any alcohol or drug abuse patient.[facility] Reason for Visit (unrecogniz ed section and content) Reason Comments Physical Therapy PT Progress Note Specialty Diagnoses / Procedures Referred By Contac t Referred To Contact PHYSICAL THERAPY Diagnoses Unsteady gait when walking Procedures CONSULT TO PHYSICAL THERAPY PHYSICAL THERAPY EVALUATION HIGH COMPLEX 45 MINS Agnes Del Rosario MD [address] [place] [address] Pt [facility] [address] [place] [address] Referral ID Status Reason Start Date Expiration Date Visits Requested Visits Authorized [id number] Authorized PCP Requested Referral Auto-Generate d Referral 11/01/2023 10/31/2024 99 99 Reason Comments Physical Therapy Reason Comments PT Eval Reason Comments PT Discharge Physical Therapy Specialty Diagnoses / Procedures Referred By Contac t Referred To Contact [facility] Diagnoses Chronic bilateral low back pain with bilateral sciatica Procedures CONSULT TO PHYSICAL THERAPY PHYSICAL THERAPY EVALUATION HIGH COMPLEX 45 MINS PodlogMarilia stuart APRN.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 [address] [place] [address] [facility] [address] [place] [address] Referral ID Status Reason Start Date Expiration Date Visits Requested Visits Authorized [id number] Authorized PCP Requested Referral Auto-Generate d Referral 11/02/2022 11/02/2023 99 99 Specialty Diagnoses / Procedures Referred By Contac t Referred To Contact [facility] Diagnoses Chronic bilateral low back pain with bilateral sciatica At high risk for falls Age-related physical debility Procedures CONSULT TO PHYSICAL THERAPY PHYSICAL THERAPY EVALUATION HIGH COMPLEX 45 MINS Agnes Del Rosario MD [address] [place] [address] [facility] [address] [place] [address] Referral ID Status Reason Start Date Expiration Date Visits Requested Visits Authorized [id number] Authorized PCP Requested Referral Auto-Generate d Referral [...] echo Reason Comments Forms FMLA paperwork for arden nguyen's spouse Reason Onset Date Comments Refill Request 11/22/2023 Reason Comments Appointment Specialty Diagnoses / Procedures Referred By Contac t Referred To Contact Vascular Medicine Diagnoses Other secondary pulmonary hypertension (HCC) History of pulmonary embolism Procedures CONSULT TO VASCULAR MEDICINE OFFICE/OUTPATIENT NEW HIGH MDM 60 [place] [address] [address] [place] [address] Referral ID Status Reason Start Date Expiration Date V isits Requested Visits Authorized [id number] Closed PCP Requested Referral 11/09/2023 11/08/2024 1 1 Reason Onset Date Comments Refill Request 01/06/2024 Reason Comments Follow Up Reason Comments Right Knee Pain X 6 days Reason Comments Disc Request Reason Comments Follow Up Right leg follow up Reason Comments Follow Up Cellulitis Reason Comments Radiology MRI Specialty Diagnoses / Procedures Referred By Panda t Referred To Contact MR IMAGING Diagnoses Acute pain of right knee Procedures MRI KNEE WO IVCON RIGHT MRI ANY JT LOWER EXTREM W/O CONTRAST MATRL Podlogar, ARIAS CapellanN.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 [address] [place] [address] [place] [id number] Referral ID Status Reason Start Date Expiration Date V isits Requested Visits Authorized [id number] Closed Auto-Generate d Referral 01/24/2024 02/22/2025 1 [...] Comm dc 03/28/24 Reason Comments Hospital F/U [facility] 03/26-03/28 for pancreatitis Reason Onset Date Comments Refill Request 04/12/2024 Reason Comments Skin Check Reason Onset Date Comments Refill Request 05/21/2024 Reason Onset Date Comments Refill Request 07/26/2024 Reason Onset Date Comments Population Health Navigation Outreach 08/07/2024 [facility]/Workbench/ACO Reason Onset Date Comments Refill Request 08/12/2024 Reason Comments Yearly Exam Reason Onset Date Comments Results 08/16/2024 Reason Comments medication form Anticoagulant author ization form Reason Comments Abdominal Pain Reason Comments Pulmonary Embolism Reason Comments Pain Left wrist pain, fel l about a month ago and caught himself with his hands. Reason Onset Date Comments Xray Results 10/09/2024 Reason Comments request for updated med list Patient Update Admitted to [facility] Reason Onset Date Comments Transition Of Care 10/25/2024 Initial Outre ach-OON [place] 10/24/2024 Reason Comments Hospital F/U Reason Comments Sleep appt needed Reason Comments Follow Up Yearly Cpap check Reason Onset Date Comments Transition Of Care 10/31/2024 First outreac h Reason Onset Date Comments Refill Request 11/04/2024 Reason Onset Date Comments Transition Of Care 11/15/2024 Second outrea ch Reason Onset Date Comments Refill Request 11/13/2024 Reason Comments Forms Reason Comments Skin Check LV: 01/15/24: FBSE. N o bleeding, changing, painful or itchy lesions today. Care Teams (unrecognized sec tion and content) Team Status: Active Member Role Status Dates Dr. Salvador Del Rosario MD Primary Care Provider Acti ve Team Status: Active Member Role Status Dates Dr. Salvador Del Rosario MD Primary Care Provider Acti ve Start: July 04, 2024 Dr. Denilson Blair MD Attending Provider Active Start: July 04, 2024 Dr. Denilson Blair MD Referring Provider Active Start: July 04, 2024 Team Status: Inactive Member Role Status Dates Dr. Salvador Del Rosario MD Primary Care Provider Acti ve Start: July 04, 2024 End: July 04, 2024 Dr. Salvador Del Rosario MD Referring Provider Active Start: July 04, 2024 End: July 04, 2024 Dr. Alex Sher DO Attending Provider Active Start: July 04, 2024 End: July 04, 2024 Team Status: Active Member Role Status Dates Dr. Salvador Del Rosario MD Primary Care Provider Acti ve Start: July 04, 2024 Dr. Salvador Del Rosario MD Referring Provider Active Start: July 04, 2024 Dr. Alex Sher DO Attending Provider Active Start: July 04, 2024 Dr. Alex Sher DO Other Provider Active St art: July 04, 2024 Team Status: Inactive Member Role Status Dates Dr. Salvador Del Rosario MD Primary Care Provider Acti ve Start: July 23, 2024 End: July 23, 2024 Dr. Salvador Del Rosario MD Referring Provider Active Start: July 23, 2024 End: July 23, 2024 Dr. Alex Sher DO Attending Provider Active Start: July 23, 2024 End: July 23, 2024 Team Status: Inactive Member Role Status Dates Dr. Salvador Del Rosario MD Primary Care Provider Acti ve Start: August 31, 2024 End: August 31, 2024 Isaias Trivedi MD Attending Provider Active Star t: August 31, 2024 End: August 31, 2024 Isaias Trivedi MD Emergency Provider Active Star t: August 31, 2024 End: August 31, 2024 Team Status: Active Member Role Status Dates Dr. Salvador Del Rosario MD Primary Care Provider Acti ve Start: September 17, 2024 Dr. Salvador Del Rosario MD Referring Provider Active Start: September 17, 2024 Dr. Troy Valentino MD Attending Provider Active Start: September 17, 2024 Team Status: Inactive Member Role Status Dates Dr. Salvador Del Rosario MD Primary Care Provider Acti ve Start: September 17, 2024 End: September 17, 2024 Dr. Isiaas Velez MD Attending Provider Active S tart: September 17, 2024 End: September 17, 2024 Information And Referral Director Relationship Specialty Start Date End Date Agnes Del Rosario MD [address] [place] [address] PCP - General Family Practice 01/12/21 Scott Pal MD [address] [address] Referring Orthopedics 06/03/19 Scott Pal MD [address] [address] Home Care Physician Orthopedics 06/03/19 Caroline Fitzgerald, PT [address] [place] [address] Client Experience Manager Acute Care 06/07/19 John Garcia MD [address] [place] [address] Primary Staff Physician Cardiology 07/17/18 Information And Referral Director Relationship Specialty Start Date End Date Agnes Del Rosario MD [address] [place] [address] PCP - General Family Practice 01/12/21 Scott Pal MD [address] [place] [address] Referring Orthopedics 06/03/19 Scott Pal MD [address] [address] Home Care Physician Orthopedics 06/03/19 Caroline Fitzgerald, PT [address] [place] [address] Client Experience Manager Acute Care 06/07/19 John Garcia MD [address], [address] [place] [address] Primary Staff Physician Cardiology 07/17/18 Information And Referral Director Relationship Specialty Start Date End Date Agnes Del Rosario MD [address] [place] [address] PCP - General Family Practice 01/12/21 Scott Pal MD [address] [place] [address] Referring Orthopedics 06/03/19 Scott Pal MD [address] [address] Home Care Physician Orthopedics 06/03/19 Caroline Fitzgerald, PT [address] [place] [address] Client Experience Manager Acute Care 06/07/19 John Garcia MD [address], Des[address] [place] [address] Primary Staff Physician Cardiology 07/17/18 Information And Referral Director Relationship Specialty Start Date End Date Agnes Del Rosario MD [address] [place] [address] PCP - General Family Practice 01/12/21 Scott Pal MD [address] [address] Referring Orthopedics 06/03/19 Scott Pal MD [address] [address] Home Care Physician Orthopedics 06/03/19 Caroline Fitzgerald, PT [address] [place] [address] Client Experience Manager Acute Care 06/07/19 John Garcia MD [address], [address] [place] [address] Primary Staff Physician Cardiology 07/17/18 Information And Referral Director Relationship Specialty Start Date End Date Agnes Del Rosario MD [address] [place] [address] PCP - General Family Practice 01/12/21 Scott Pal MD [address] [address] Referring Orthopedics 06/03/19 Scott Pal MD [address] [address] Home Care Physician Orthopedics 06/03/19 Caroline Fitzgerald, PT [address] [place] [address] Client Experience Manager Acute Care 06/07/19 John Garcia MD [address], [address] [place] [address] Primary Staff Physician Cardiology 07/17/18 Information And Referral Director Relationship Specialty Start Date End Date Agnes Del Rosario MD [address] [place] [address] PCP - General Family Practice 01/12/21 Scott Pal MD [address] [address] Referring Orthopedics 06/03/19 Scott Pal MD [address] [address] Home Care Physician Orthopedics 06/03/19 Caroline Fitzgerald, PT [address] [place] [address] Client Experience Manager Acute Care 06/07/19 John Garcia MD [address] [place] [address] Primary Staff Physician Cardiology 07/17/18 Information And Referral Director Relationship Specialty Start Date End Date Agnes Del Rosario MD [address] [place] [address] PCP - General Family Practice 01/12/21 Scott Pal MD [address] [address] Referring Orthopedics 06/03/19 Scott Pal MD [address] [address] Home Care Physician Orthopedics 06/03/19 Caroline Fitzgerald, PT [address] [place] [address] Client Experience Manager Acute Care 06/07/19 John Garcia MD [address] [place] [address] Primary Staff Physician Cardiology 07/17/18 Information And Referral Director Relationship Specialty Start Date End Date Agnes Del Rosario MD [address] [place] [address] PCP - General Family Practice 01/12/21 Scott Pal MD [address] [address] Referring Orthopedics 06/03/19 Scott Pal MD [facility] [address] [address] Home Care Physician Orthopedics 06/03/19 Caroline Fitzgerald, PT [address] [place] [address] Client Experience Manager Acute Care 06/07/19 John Garcia MD [address], Desk [address] [place] [address] Primary Staff Physician Cardiology 07/17/18 Information And Referral Director Relationship Specialty Start Date End Date Agnes Del Rosario MD [address] [place], [place] [id number] PCP - General Family Practice 01/12/21 Scott Pal MD [address] [address] Referring Orthopedics 06/03/19 Scott Pal MD [address] [address] Home Care Physician Orthopedics 06/03/19 Caroline Fitzgerald, PT [address] [place] [address] Client Experience Manager Acute Care 06/07/19 John Garcia MD [address], Desk [address] [place] [address] Primary Staff Physician Cardiology 07/17/18 Information And Referral Director Relationship Specialty Start Date End Date Agnes Del Rosario MD [address] [place], [place] [address] PCP - General Family Practice 01/12/21 Scott Pal MD [address] [address] Referring Orthopedics 06/03/19 Scott Pal MD [address] [place] [address] Home Care Physician Orthopedics 06/03/19 Caroline Fitzgerald, PT [address] [place] [address] Client Experience Manager Acute Care 06/07/19 John Garcia MD [address] CLAIRE PEÑA, Desk J[address] [place] [address] Primary Staff Physician Cardiology 07/17/18 Information And Referral Director Relationship Specialty Start Date End Date Agnes Del Rosario MD [address] [place], [place] 149501 PCP - General Family Practice 01/12/21 Scott Pal MD [address] [address] Referring Orthopedics 06/03/19 Scott Pal MD [address] [address] Home Care Provider Orthopedics 06/03/19 Caroline Fitzgerald, PT [address] [place] [address] Client Experience Manager Acute Care 06/07/19 John Garcia MD [address] CLAIRE SCHERERVanessa, Adan [address] [place] [address] Primary Staff Physician Cardiology 07/17/18 Information And Referral Director Relationship Specialty Start Date End Date Agnes Del Rosario MD [address] [place] [address] PCP - General Family Medicine 01/12/21 Scott Pal MD [address] [address] Referring Orthopedics 06/03/19 Scott Pal MD [address] [address] Home Care Provider Orthopedics 06/03/19 Caroline Fitzgerald, PT [address] [place] [address] Client Experience Manager Acute Care 06/07/19 John Garcia MD [address] CLAIRE PEÑA, Adan [address] [place] [address] Primary Staff Physician Cardiology 07/17/18 Information And Referral Director Relationship Specialty Start Date End Date Agnes Del Rosario MD [address] [place] [address] PCP - General Family Medicine 01/12/21 Scott Pal MD [address] [address] Referring Orthopedics 06/03/19 Scott Pal MD [address] [address] Home Care Provider Orthopedics 06/03/19 Caroline Fitzgerald, PT [address] [place] [address] Client Experience Manager Acute Care 06/07/19 John Garcia MD 0000 CLAIRE PEÑA, Desk [address] [place] [address] Primary Staff Physician Cardiology 07/17/18 Information And Referral Director Relationship Specialty Start Date End Date Agnes Del Rosario MD [address] [place] [address] PCP - General Family Medicine 01/12/21 Scott Pal MD [address] [address] Referring Orthopedics 06/03/19 Scott Pal MD [address] [address] Home Care Provider Orthopedics 06/03/19 Caroline Fitzgerald, PT [address] [place] [address] Client Experience Manager Acute Care 06/07/19 John Garcia MD [address] CLAIRE PEÑA, Desk [address] [place] [address] Primary Staff Physician Cardiology 07/17/18 Information And Referral Director Relationship Specialty Start Date End Date Agnes Del Rosario MD [address] [place] [address] PCP - General Family Medicine 01/12/21 Scott Pal MD [address] [address] Referring Orthopedics 06/03/19 Scott Pal MD [address] [address] Home Care Provider Orthopedics 06/03/19 Caroline Fitzgerald, PT [address] [place] [address] Client Experience Manager Acute Care 06/07/19 John Garcia MD [address]60 CLAIRE PEÑA, Desk [address] [place] [address] Primary Staff Physician Cardiology 07/17/18 Information And Referral Director Relationship Specialty Start Date End Date Agnes Del Rosario MD [address] [place], [place] 418041 PCP - General Family Medicine 01/12/21 Scott Pal MD [address] [place] [address] Referring Orthopedics 06/03/19 Scott Pal MD [address] [place] [address] Home Care Provider Orthopedics 06/03/19 Caroline Fitzgerald, PT [address] [place] [address] Client Experience Manager Acute Care 06/07/19 John Garcia MD [address] CLAIRE PEÑA, Desk [address] [place] [address] Primary Staff Physician Cardiology 07/17/18 Information And Referral Director Relationship Specialty Start Date End Date Agnes Del Rosario MD [address] [place] [address] PCP - General Family Medicine 01/12/21 Scott Pal MD [address] [place] [address] Referring Orthopedics 06/03/19 Scott Pal MD [address] [place] [address] Home Care Provider Orthopedics 06/03/19 Caroline Fitzgerald, PT [address] [place] [address] Client Experience Manager Acute Care 06/07/19 John Garcia MD [address] EUCR[address] SCHERERE, Desk [address] [place] [address] Primary Staff Physician Cardiology 07/17/18 Information And Referral Director Relationship Specialty Start Date End Date Agnes Del Rosario MD [address] [place], [place] 476198 [phone] PCP - General Family Medicine 01/12/21 Scott Pal MD [address] [address] Referring Orthopedics 06/03/19 Scott Pal MD [address] [address] Home Care Provider Orthopedics 06/03/19 Caroline Fitzgerald, PT [address] [place] [address] Client Experience Manager Acute Care 06/07/19 John Garcia MD [address] EUCRENARD NIESHAE, Desk [address] [place] [address] Primary Staff Physician Cardiology 07/17/18 Information And Referral Director Relationship Specialty Start Date End Date Agnes Del Rosario MD [address] [place] [address] PCP - General Family Medicine 01/12/21 Scott Pal MD [address] 16391 Referring Orthopedics 06/03/19 Scott Pal MD [address] 18[address] Home Care Provider Orthopedics 06/03/19 Caroline Fitzgerald, PT [address] [place] [address] Client Experience Manager Acute Care 06/07/19 John Garcia MD [address] CLAIRE PEÑA, Desk [address] [place] [address] Primary Staff Physician Cardiology 07/17/18 Information And Referral Director Relationship Specialty Start Date End Date Agnes Del Rosario MD [address] [place], [place] 360361 PCP - General Family Medicine 01/12/21 Scott Pal MD [address] [address] Referring Orthopedics 06/03/19 Scott Pal MD [address] [address] Home Care Provider Orthopedics 06/03/19 Caroline Fitzgerald, PT [address] [place] [address] Client Experience Manager Acute Care 06/07/19 John Garcia MD [address] CLAIRE PEÑA, Desk [address] [place] [address] Primary Staff Physician Cardiology 07/17/18 Information And Referral Director Relationship Specialty Start Date End Date Agnes Del Rosario MD [address] [place] [address] PCP - General Family Medicine 01/12/21 Scott Pal MD [address] [address] Referring Orthopedics 06/03/19 Scott Pal MD [address] [address] Home Care Provider Orthopedics 06/03/19 Caroline Fitzgerald, PT [address] [place] [address] Client Experience Manager Acute Care 06/07/19 John Garcia MD [address], Desk J[address] [place], [place] [address] Primary Staff Physician Cardiology 07/17/18 Information And Referral Director Relationship Specialty Start Date End Date Agnes Del Rosario MD [address] [place] [address] PCP - General Family Medicine 01/12/21 Scott Pal MD [address] [address] Referring Orthopedics 06/03/19 Scott Pal MD [address] [address] Home Care Provider Orthopedics 06/03/19 Caroline Fitzgerald, PT [address] [place] [address] Client Experience Manager Acute Care 06/07/19 John Garcia MD [address], Desk [address] [place] [address] Primary Staff Physician Cardiology 07/17/18 Information And Referral Director Relationship Specialty Start Date End Date Agnes Del Rosario MD [address] [place] [address] PCP - General Family Medicine 01/12/21 Scott Pal MD [address] [place] [address] Referring Orthopedics 06/03/19 Scott Pal MD [address] [place] [address] Home Care Provider Orthopedics 06/03/19 Caroline Fitzgerald, PT [address] [place] [address] Client Experience Manager Acute Care 06/07/19 John Garcia MD [address] Adan BOWENS [address] [place] [address] Primary Staff Physician Cardiology 07/17/18 Information And Referral Director Relationship Specialty Start Date End Date Agnes Del Rosario MD [address] [place] [address] PCP - General Family Medicine 01/12/21 Scott Pal MD [address] [place] [address] Referring Orthopedics 06/03/19 Scott Pal MD [address] [place] [address] Home Care Provider Orthopedics 06/03/19 Caroline Fitzgerald, PT [address] [place], [place] 4168531 Client Experience Manager Acute Care 06/07/19 John Garcia MD [address] CLAIRE PEÑA, Desk [address] [place], [place] 2756795 Primary Staff Physician Cardiology 07/17/18 Information And Referral Director Relationship Specialty Start Date End Date Agnes Del Rosario MD [address] [place], [place] 976291 PCP - General Family Medicine 01/12/21 Scott Pal MD [address] [phone] Referring Orthopedics 06/03/19 Scott Pal MD [address] [phone] Home Care Provider Orthopedics 06/03/19 Caroline Fitzgerald, PT [address] [place] [address] Client Experience Manager Acute Care 06/07/19 John Garcia MD [address] CLAIRE PEÑA, Desk [address] [place] [address] Primary Staff Physician Cardiology 07/17/18 Information And Referral Director Relationship Specialty Start Date End Date Agnes Del Rosario MD [address] [place], [place] 950801 PCP - General Family Medicine 01/12/21 Soctt Pal MD [address] [address] Referring Orthopedics 06/03/19 Scott Pal MD [facility] [address] [address] Home Care Provider Orthopedics 06/03/19 Caroline Fitzgerald, PT [address] [place] [address] Client Experience Manager Acute Care 06/07/19 John Garcia MD [address], Desk [address] [place] [address] Primary Staff Physician Cardiology 07/17/18 Information And Referral Director Relationship Specialty Start Date End Date Agnes Del Rosario MD [address] [place] [address] PCP - General Family Medicine 01/12/21 Scott Pal MD [address] [place] [address] Referring Orthopedics 06/03/19 Scott Pal MD [address] [place] [address] Home Care Provider Orthopedics 06/03/19 Caroline Fitzgerald, PT [address] [place] [address] Client Experience Manager Acute Care 06/07/19 John Garcia MD [address], Desk [address] [place] [address] Primary Staff Physician Cardiology 07/17/18 Information And Referral Director Relationship Specialty Start Date End Date Agnes Del Rosario MD [address] [place] [address] PCP - General Family Medicine 01/12/21 Scott Pal MD [address] [address] Referring Orthopedics 06/03/19 Scott Pal MD [address] [address] Home Care Provider Orthopedics 06/03/19 Caroline Fitzgerald, PT [address] [place] [address] Client Experience Manager Acute Care 06/07/19 John Garcia MD [address], Desk [address] [place], [place] 5884495 Primary Staff Physician Cardiology 07/17/18 Information And Referral Director Relationship Specialty Start Date End Date Agnes Del Rosario MD [address] [place] [address] PCP - General Family Medicine 01/12/21 Scott Pal MD [address] [address] Referring Orthopedics 06/03/19 Scott Pal MD [address] [address] Home Care Provider Orthopedics 06/03/19 Caroline Fitzgerald, PT [address] [place] [address] Client Experience Manager Acute Care 06/07/19 John Garcia MD [address], Desk [address] [place], [place] [id number] Primary Staff Physician Cardiology 07/17/18 Information And Referral Director Relationship Specialty Start Date End Date Agnes Del Rosario MD [address] [place], [place] 380121 PCP - General Family Medicine 01/12/21 Scott Pal MD [address] [address] Referring Orthopedics 06/03/19 Scott Pal MD [address] 9[address] Home Care Provider Orthopedics 06/03/19 Caroline Fitzgerald, PT [address] [place] [address] Client Experience Manager Acute Care 06/07/19 John Garcia MD [address] CLAIRE PEÑA, Desk [address] [place], [place] 2918295 Primary Staff Physician Cardiology 07/17/18 Information And Referral Director Relationship Specialty Start Date End Date Agnes Del Rosario MD [address] [place] [address] PCP - General Family Medicine 01/12/21 Scott Pal MD [address] [address] Referring Orthopedics 06/03/19 Scott Pal MD [address] [address] Home Care Provider Orthopedics 06/03/19 Caroline Fitzgerald, PT [address] [place] [address] Client Experience Manager Acute Care 06/07/19 John Garcia MD [address], Desk [address] [place] [address] Primary Staff Physician Cardiology 07/17/18 Information And Referral Director Relationship Specialty Start Date End Date Agnes Del Rosario MD [address] [place], [place] 117171 PCP - General Family Medicine 01/12/21 Scott Pal MD [address] [place] [address] Referring Orthopedics 06/03/19 Scott Pal MD [address] [place] [address]91 Home Care Provider Orthopedics 06/03/19 Caroline Fitzgerald, PT [address] [place] [address] Client Experience Manager Acute Care 06/07/19 John Garcia MD [address]IESHAE, Desk [address] [place] [address] Primary Staff Physician Cardiology 07/17/18 Information And Referral Director Relationship Specialty Start Date End Date Agnes Del Rosario MD [address] [place], [place] 658521 PCP - General Family Medicine 01/12/21 Scott Pal MD [address] [place] [address] 99794 Referring Orthopedics 06/03/19 Scott Pal MD [address] [address] Home Care Provider Orthopedics 06/03/19 Caroline Fitzgerald, PT [address] [place] [address] Client Experience Manager Acute Care 06/07/19 John Garcia MD [address], Desk [address] [place] [address] Primary Staff Physician Cardiology 07/17/18 Information And Referral Director Relationship Specialty Start Date End Date Agnes Del Rosario MD [address] [place], [place] 066141 PCP - General Family Medicine 01/12/21 Scott Pal MD [address] [address] Referring Orthopedics 06/03/19 Scott Pal MD [address] [address] Home Care Provider Orthopedics 06/03/19 Caroline Fitzgerald, PT [address] [place] [address] Client Experience Manager Acute Care 06/07/19 John Garcia MD [address], Desk [address] [place] [address] Primary Staff Physician Cardiology 07/17/18 Information And Referral Director Relationship Specialty Start Date End Date Agnes Del Rosario MD [address] [place] [address] PCP - General Family Medicine 01/12/21 Scott Pal MD [address] [place] [address] Referring Orthopedics 06/03/19 Scott Pal MD [address] [place] [address] 26799 Home Care Provider Orthopedics 06/03/19 John Garcia MD [address] [place] [address] Primary Staff Physician Cardiology 07/17/18 Information And Referral Director Relationship Specialty Start Date End Date Agnes Del Rosario MD [address] [place] [address] PCP - General Family Medicine 01/12/21 Scott Pal MD [address] [place] [address] Referring Orthopedics 06/03/19 Scott Pal MD [address] [place] [address] Home Care Provider Orthopedics 06/03/19 John Garcia MD [address] [place], [place] 0176695 Primary Staff Physician Cardiology 07/17/18 Team Status: Active Member Role Status Dates Dr. Macario Duran III, MD Family Provider Active Dr. Salvador Del Rosario MD Primary Care Provider Acti ve Team Status: Inactive Member Role Status Dates Dr. Bob Cabezas MD Attending Provider, Referring Provider Active Dr. Salvador Del Rosario MD Primary Care Provider Acti ve Information And Referral Director Relationship Specialty Start Date End Date Agnes Del Rosario MD [address] [place] [address] PCP - General Family Medicine 01/12/21 Scott Pal MD [address] [address] Referring Orthopedics 06/03/19 Scott Pal MD [address] [place] [address] Home Care Provider Orthopedics 06/03/19 John Garcia MD [address] EUCERNARD PEÑA, Adan [address] [place] [address] Primary Staff Physician Cardiology 07/17/18 Information And Referral Director Relationship Specialty Start Date End Date Agnes Del Rosario MD [address] [place] [address] PCP - General Family Medicine 01/12/21 Scott Pal MD [address] [place] [address]26 Referring Orthopedics 06/03/19 Scott Pal MD [address] [address] Home Care Provider Orthopedics 06/03/19 John Garcia MD [address] CLAIRE PEÑA, Adan [address] [place], [place] 3046095 Primary Staff Physician Cardiology 07/17/18 Information And Referral Director Relationship Specialty Start Date End Date Agnes Del Rosario MD [address] [place] [address] PCP - General Family Medicine 01/12/21 Scott Pal MD [address] [address] Referring Orthopedics 06/03/19 Scott Pal MD [address] [place] [address] Home Care Provider Orthopedics 06/03/19 John Garcia MD [address] CLA[address] PEÑA, Adan [address] [place] [address] Primary Staff Physician Cardiology 07/17/18 Information And Referral Director Relationship Specialty Start Date End Date Agnes Del Rosario MD [address] [place] [address] PCP - General Family Medicine 01/12/21 Scott Pal MD [address] [address] Referring Orthopedics 06/03/19 Scott Pal MD [address] 8[address] Home Care Provider Orthopedics 06/03/19 John Garcia MD [address] [place] [address] Primary Staff Physician Cardiology 07/17/18 Information And Referral Director Relationship Specialty Start Date End Date Agnes Del Rosario MD [address] [place] [address] PCP - General Family Medicine 01/12/21 Scott Pal MD [address] [address]86 Referring Orthopedics 06/03/19 Scott Pal MD [address] [place] [address] 24056 Home Care Provider Orthopedics 06/03/19 John Garcia MD [address] CLA[address] PEÑA, Adan [address] [place] [address] Primary Staff Physician Cardiology 07/17/18 Information And Referral Director Relationship Specialty Start Date End Date Agnes Del Rosario MD [address] [place] [address] PCP - General Family Medicine 01/12/21 Scott Pal MD [address] [address] Referring Orthopedics 06/03/19 Scott Pal MD [address] 55[address] Home Care Provider Orthopedics 06/03/19 John Garcia MD [address] [place] [address] Primary Staff Physician Cardiology 07/17/18 ProviderAaliyah MD Foreign Language Teacher 10/27/23 11/25/23 Leonila Pino, CHAD [address] [place] [address] Primary Care Stencil Cutter 10/30/23 Information And Referral Director Relationship Specialty Start Date End Date Agnes Del Rosario MD [address] [place], [place] 766601 PCP - General Family Medicine 01/12/21 Scott Pal MD [address] [address] Referring Orthopedics 06/03/19 Scott Pal MD [address] [phone] Home Care Provider Orthopedics 06/03/19 John Garcia MD [address] CLA[address] PEÑA, Desk [address] [place] [address] Primary Staff Physician Cardiology 07/17/18 ProviderAaliyah MD Foreign Language Teacher 10/27/23 11/25/23 Leonila Pino, CHAD [address] [place] [address] Primary Care Stencil Cutter 10/30/23 Information And Referral Director Relationship Specialty Start Date End Date Agnes Del Rosario MD [address] [place], [place] 053581 PCP - General Family Medicine 01/12/21 Scott Pal MD [address] [address] Referring Orthopedics 06/03/19 cSott Pal MD [address] [address] Home Care Provider Orthopedics 06/03/19 John Garcia MD [address], Desk [address] [place] [address] Primary Staff Physician Cardiology 07/17/18 Aaliyah Herrera MD Foreign Language Teacher 10/27/23 11/25/23 Leonila Pino, RN [address] [place] [address] Primary Care Stencil Cutter 10/30/23 Information And Referral Director Relationship Specialty Start Date End Date Agnes Del Rosario MD [address] [address] PCP - General Family Medicine 01/12/21 Scott Pal MD [address] [address] Referring Orthopedics 06/03/19 Scott Pal MD [address] [address] Home Care Provider Orthopedics 06/03/19 John Garcia MD [address], Desk [address] [place] [address] Primary Staff Physician Cardiology 07/17/18 Aaliyah Herrera MD Foreign Language Teacher 10/27/23 11/25/23 Leonila Pino, RN [address] [place] [address] Primary Care Stencil Cutter 10/30/23 Information And Referral Director Relationship Specialty Start Date End Date Agnes Del Rosario MD [address] [place] [address] PCP - General Family Medicine 01/12/21 Scott Pal MD [address] [place] [address] 24432 Referring Orthopedics 06/03/19 Scott Pal MD [address] [place] [address] 20741 Home Care Provider Orthopedics 06/03/19 John Garcia MD [address] [place] [address] Primary Staff Physician Cardiology 07/17/18 Provider, MD Aaliyah Foreign Language Teacher 10/27/23 11/25/23 Leonila Pino, RN [address] [place], [place] 3312831 Primary Care Stencil Cutter 10/30/23 Information And Referral Director Relationship Specialty Start Date End Date Agnes Del Rosario MD [address] [place] [address] PCP - General Family Medicine 01/12/21 Scott Pal MD [address] [place] [address] Referring Orthopedics 06/03/19 Scott Pal MD [address] [place] [address] 76509 Home Care Provider Orthopedics 06/03/19 John Garcia MD [address] CLA[address] PEÑA, Adan [address] [place], [place] [id number] Primary Staff Physician Cardiology 07/17/18 ProviderAaliyah MD Foreign Language Teacher 10/27/23 11/25/23 Leonila Pino, CHAD [address] [place], [place] 4029531 Primary Care Stencil Cutter 10/30/23 Information And Referral Director Relationship Specialty Start Date End Date Agnes Del Rosario MD [address] [place], [place] 218521 PCP - General Family Medicine 01/12/21 Scott Pal MD [address] [place] [address] 95879 Referring Orthopedics 06/03/19 Scott Pal MD [address] [place] [address] 38553 Home Care Provider Orthopedics 06/03/19 John Garcia MD [address] [place] [address] Primary Staff Physician Cardiology 07/17/18 ProviderAaliyah MD Foreign Language Teacher 10/27/23 11/25/23 Leonila Pino, CHAD [address] [place] [address] Primary Care Stencil Cutter 10/30/23 Information And Referral Director Relationship Specialty Start Date End Date Agnes Del Rosario MD [address] [place], [place] 806631 PCP - General Family Medicine 01/12/21 Scott Pal MD [address] [address] Referring Orthopedics 06/03/19 Scott Pal MD [address] [address] Home Care Provider Orthopedics 06/03/19 John Garcia MD [address], Desk [address] [place] [address] Primary Staff Physician Cardiology 07/17/18 Information And Referral Director Relationship Specialty Start Date End Date Agnes Del Rosario MD [address] [place], [place] 407951 PCP - General Family Medicine 01/12/21 Scott Pal MD [address] [address] Referring Orthopedics 06/03/19 Scott Pal MD [address] [address]28 Home Care Provider Orthopedics 06/03/19 John Garcia MD [address], Desk [address] [place] [address] Primary Staff Physician Cardiology 07/17/18 Information And Referral Director Relationship Specialty Start Date End Date Agnes Del Rosario MD [address] [place], [place] 162101 PCP - General Family Medicine 01/12/21 Scott Pal MD [address] [address]78 Referring Orthopedics 06/03/19 Scott Pal MD [address] [address] Home Care Provider Orthopedics 06/03/19 John Garcia MD [address] DENIS[address]IESHAE, Desk [address] [place] [address] Primary Staff Physician Cardiology 07/17/18 Information And Referral Director Relationship Specialty Start Date End Date Agnes Del Rosario MD [address] [place], [place] 842161 PCP - General Family Medicine 01/12/21 Scott Pal MD [address] [address]34 Referring Orthopedics 06/03/19 Scott Pal MD [address] 19290 Home Care Provider Orthopedics 06/03/19 John Garcia MD [address] PEÑA, Desk [address] [place] [address] Primary Staff Physician Cardiology 07/17/18 Information And Referral Director Relationship Specialty Start Date End Date Agnes Del Rosario MD [address] [place], [place] 181981 PCP - General Family Medicine 01/12/21 Scott Pal MD [address] [address]683 Referring Orthopedics 06/03/19 Scott Pal MD [address] [place] [address] 96161 Home Care Provider Orthopedics 06/03/19 John Garcia MD [address], Desk [address] [place] [address] Primary Staff Physician Cardiology 07/17/18 Information And Referral Director Relationship Specialty Start Date End Date Agnes Del Rosario MD [address] [place], [place] 492681 PCP - General Family Medicine 01/12/21 Scott Pal MD [address] [place] [address] Referring Orthopedics 06/03/19 Scott Pal MD [address] [place] [address] 57714 Home Care Provider Orthopedics 06/03/19 Caroline Fitzgerald, PT [address] [place], [place] [phone] Client Experience Manager Acute Care 06/07/19 05/17/23 John Garcia MD [address], Desk [address] [place] [address] Primary Staff Physician Cardiology 07/17/18 Information And Referral Director Relationship Specialty Start Date End Date Agnes Del Rosario MD [address] [place] [address] PCP - General Family Medicine 01/12/21 Scott Pal MD [address] [address] Referring Orthopedics 06/03/19 Scott Pal MD [address] [address] Home Care Provider Orthopedics 06/03/19 John Garcia MD [address], Desk [address] [place] [address] Primary Staff Physician Cardiology 07/17/18 Information And Referral Director Relationship Specialty Start Date End Date Agnes Del Rosario MD [address] [place], [place] 996431 PCP - General Family Medicine 01/12/21 Scott Pal MD [address] [place] [address] 03068 Referring Orthopedics 06/03/19 Scott Pal MD [address] [place] [address] 8[address]22 Home Care Provider Orthopedics 06/03/19 John Garcia MD [address], Desk [address] [place] [address] Primary Staff Physician Cardiology 07/17/18 Information And Referral Director Relationship Specialty Start Date End Date Agnes Del Rosario MD [address] [place] [address] PCP - General Family Medicine 01/12/21 Scott Pal MD [address] [address] Referring Orthopedics 06/03/19 Scott Pal MD [address] [address] Home Care Provider Orthopedics 06/03/19 John Garcia MD [address], Desk J2-3 [place] [address] Primary Staff Physician Cardiology 07/17/18 Information And Referral Director Relationship Specialty Start Date End Date Agnes Del Rosario MD [address] [place], [place] 429521 PCP - General Family Medicine 01/12/21 Scott Pal MD [address] [place] [address] Referring Orthopedics 06/03/19 Scott Pal MD [address] [place] [address] Home Care Provider Orthopedics 06/03/19 John Garcia MD [address], Desk J2-[address] [place] [address] Primary Staff Physician Cardiology 07/17/18 Information And Referral Director Relationship Specialty Start Date End Date Agnes Del Rosario MD [address] [place] [address] PCP - General Family Medicine 01/12/21 Scott Pal MD [address] [place] [address] Referring Orthopedics 06/03/19 Scott Pal MD [address] [address] Home Care Provider Orthopedics 06/03/19 John Garcia MD [address], Desk J2-[address] [place] [address] Primary Staff Physician Cardiology 07/17/18 Information And Referral Director Relationship Specialty Start Date End Date Agnes Del Rosario MD [address] [place], [place] 436251 PCP - General Family Medicine 01/12/21 Scott Pal MD [address] [place] [address] Referring Orthopedics 06/03/19 Scott Pal MD [address] [place] [address] 51206 Home Care Provider Orthopedics 06/03/19 John Garcia MD [address], Desk J2-3 [place] [address] Primary Staff Physician Cardiology 07/17/18 Information And Referral Director Relationship Specialty Start Date End Date Agnes Del Rosario MD [address] [place] [address] PCP - General Family Medicine 01/12/21 Scott Pal MD [address] [place] [address] Referring Orthopedics 06/03/19 Scott Pal MD [address] [address] Home Care Provider Orthopedics 06/03/19 John Garcia MD [address], Desk J2-[address] [place] [address] Primary Staff Physician Cardiology 07/17/18 Information And Referral Director Relationship Specialty Start Date End Date Agnes Del Rosario MD [address] [place] [address] PCP - General Family Medicine 01/12/21 Scott Pal MD [address] [place] [address] Referring Orthopedics 06/03/19 Scott Pal MD [address] [place] [address] Home Care Provider Orthopedics 06/03/19 John Garcia MD [address], Desk J[address] [place] [address] Primary Staff Physician Cardiology 07/17/18 Information And Referral Director Relationship Specialty Start Date End Date Agnes Del Rosario MD [address] [place] [address] PCP - General Family Medicine 01/12/21 Scott Pal MD [address] [place] [address] Referring Orthopedics 06/03/19 Scott Pal MD [address] [address] Home Care Provider Orthopedics 06/03/19 John Garcia MD [address], Desk J2-[address] [place] [address] Primary Staff Physician Cardiology 07/17/18 Information And Referral Director Relationship Specialty Start Date End Date Agnes Del Rosario MD [address] [place] [address] PCP - General Family Medicine 01/12/21 Scott Pal MD [address] [place] [address] 20059 Referring Orthopedics 06/03/19 Scott Pal MD [address] [place] [address] Home Care Provider Orthopedics 06/03/19 John Garcia MD [address], Desk J2-[address] [place] [address] Primary Staff Physician Cardiology 07/17/18 Information And Referral Director Relationship Specialty Start Date End Date Agnes Del Rosario MD [address] [place] [address] PCP - General Family Medicine 01/12/21 Scott Pal MD [address] [place] [address] Referring Orthopedics 06/03/19 Scott Pal MD [address] [address] Home Care Provider Orthopedics 06/03/19 John Garcia MD [address], Desk J2-[address] [place] [address] Primary Staff Physician Cardiology 07/17/18 Information And Referral Director Relationship Specialty Start Date End Date Agnes Del Rosario MD [address] [place] [address] PCP - General Family Medicine 01/12/21 Scott Pal MD [address] [place] [address] Referring Orthopedics 06/03/19 Scott Pal MD [address] [place] [address] Home Care Provider Orthopedics 06/03/19 John Garcia MD [address], Desk J[address] [place] [address] Primary Staff Physician Cardiology 07/17/18 Information And Referral Director Relationship Specialty Start Date End Date Agnes Del Rosario MD [address] [place], [place] 702861 PCP - General Family Medicine 01/12/21 Scott Pal MD [address] [address] Referring Orthopedics 06/03/19 Scott Pal MD [address] [place] [address] 8[address] Home Care Provider Orthopedics 06/03/19 John Garcia MD [address], Desk J2-3 [place] [address] Primary Staff Physician Cardiology 07/17/18 Information And Referral Director Relationship Specialty Start Date End Date Agnes Del Rosario MD [address] [place], [place] 360921 PCP - General Family Medicine 01/12/21 Scott Pal MD [address] [place] [address] Referring Orthopedics 06/03/19 Scott Pal MD [address] [place] [address] Home Care Provider Orthopedics 06/03/19 John Garcia MD [address], Desk J2-3 [place] [address] Primary Staff Physician Cardiology 07/17/18 Mitchel Walters, CHAD [address] [place] [address] Primary Care Stencil Cutter 03/29/24 Information And Referral Director Relationship Specialty Start Date End Date Agnes Del Rosario MD [address] [place], [place] 728821 PCP - General Family Medicine 01/12/21 Scott Pal MD [address] [address] Referring Orthopedics 06/03/19 Scott Pal MD [address] [address] Home Care Provider Orthopedics 06/03/19 John Garcia MD [address], Desk J[address] [place], [place] 2070495 Primary Staff Physician Cardiology 07/17/18 Mitchel Walters, CHAD [address] [place], [place] [id number] Primary Care Stencil Cutter 03/29/24 Information And Referral Director Relationship Specialty Start Date End Date Agnes Del Rosario MD [facility] [place] [address] PCP - General Family Medicine 01/12/21 Scott Pal MD [facility] [address] [address] Referring Orthopedics 06/03/19 Scott Pal MD [facility] [address] [address] Home Care Provider Orthopedics 06/03/19 John Garcia MD [address], Desk J[address] [place], [place] 3541195 Primary Staff Physician Cardiology 07/17/18 Mitchel Walters, CHAD [address] [place] [address] Primary Care Stencil Cutter 03/29/24 PodlogarMarilia APRN.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 [address] [place] [address] Foreign Language Teacher Family [facility] 04/06/24 Information And Referral Director Relationship Specialty Start Date End Date Agnes Del Rosario MD [address] [place] [address] PCP - General Family Medicine 01/12/21 Scott Pal MD [address] [phone] Referring Orthopedics 06/03/19 Scott Pal MD [address] [phone] Home Care Provider Orthopedics 06/03/19 John Garcia MD [address], Desk J2-3 [place], [place] [phone] Primary Staff Physician Cardiology 07/17/18 Mitchel Walters, RN [address] [place] [address] Primary Care Stencil Cutter 03/29/24 PodlogarMarilia APRN.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 [address] [place] [address] Foreign Language Teacher [facility] 04/06/24 Information And Referral Director Relationship Specialty Start Date End Date Macario Duran MD [address] [facility] [place] [address] PCP - General 04/01/11 Information And Referral Director Relationship Specialty Start Date End Date Agnes Del Rosario MD [address] [place] [address] PCP - General Family Medicine 01/12/21 Scott Pal MD [address] [address] Referring Orthopedics 06/03/19 Scott Pal MD [address] [address] Home Care Provider Orthopedics 06/03/19 John Garcia MD [address] J[address] [place] [address] Primary Staff Physician Cardiology 07/17/18 Podlogar, APRN. Marilia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 [address] [place] [address] Foreign Language Teacher Family Medicine 04/06/24 Information And Referral Director Relationship Specialty Start Date End Date Agnes Del Rosario MD [address] [place] [address] PCP - General Family Medicine 01/12/21 Scott Pal MD [address] [address] Referring Orthopedics 06/03/19 Scott Pal MD [address] [address] Home Care Provider Orthopedics 06/03/19 John Garcia MD [address] J[address] [place] [address] Primary Staff Physician Cardiology 07/17/18 Marilia Orozco APRN.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 [address] [place] [address] Foreign Language Teacher Family Medicine 04/06/24 Team Status: Inactive Member Role Status Dates Dr. Salvador Del Rosario MD Primary Care Provider Acti ve Start: March 26, 2024 End: March 28, 2024 Dr. Thomas Domínguez , DO Emergency Provider Active Start: March 26, 2024 End: March 28, 2024 Dr. Andrea Serrano , DO Admit Provider Active Start: March 26, 2024 End: March 28, 2024 Dr. Andrea Serrano DO Other Provider Active Start: March 26, 2024 End: March 28, 2024 Dr. Altagracia Lo MD Attending Provider Active Start: March 26, 2024 End: March 28, 2024 Dr. Beau Pike MD Other Provider Active St art: March 26, 2024 End: March 28, 2024 Team Status: Active Member Role Status Dates Dr. Salvador Del Rosario MD Primary Care Provider Acti ve Start: March 26, 2024 Dr. Thomas Domínguez DO Emergency Provider Active Start: March 26, 2024 Dr. Andrea Serrano DO Admit Provider Active Start: March 26, 2024 Dr. Andrea Serrano DO Other Provider Active Start: March 26, 2024 Dr. Altagracia Lo MD Referring Provider Active Start: March 26, 2024 Dr. Altagracia Lo MD Other Provider Active St art: March 26, 2024 Dr. Alex Sher DO Attending Provider Active Start: March 26, 2024 Team Status: Active Member Role Status Dates Dr. Salvador Del Rosario MD Primary Care Provider Acti ve Start: March 27, 2024 Dr. Alex Sher DO Attending Provider Active Start: March 27, 2024 Dr. Altagracia Lo MD Referring Provider Active Start: March 27, 2024 Team Status: Active Member Role Status Dates Dr. Salvador Del Rosario MD Primary Care Provider Acti ve Start: March 27, 2024 Dr. Thomas Domínguez , Emergency Provider Active Start: March 27, 2024 Dr. Andrea Serrano , DO Admit Provider Active Start: March 27, 2024 Dr. Andrea Serrano DO Other Provider Active Start: March 27, 2024 Dr. Altagracia Lo MD Attending Provider Active Start: March 27, 2024 Dr. Altagracia Lo MD Other Provider Active St art: March 27, 2024 Team Status: Active Member Role Status Dates Dr. Salvador Del Rosario MD Primary Care Provider Acti ve Start: March 28, 2024 Dr. Thomas Domínguez , Emergency Provider Active Start: March 28, 2024 Dr. Andrea Serrano , Admit Provider Active Start: March 28, 2024 [...] Active Member Role Status Dates Dr. Salvador Del Rosario MD Primary Care Provider Acti ve Start: [...] St art: March 28, 2024 Dr. Beau Pkie MD Other Provider Active St art: March 28, 2024 Team Status: Inactive Member Role Status Dates Dr. Salvador Del Rosario MD Primary Care Provider Acti ve Start: April 16, 2024 End: April 16, 2024 Dr. Salvador Del Rosario MD Referring Provider Active Start: April 16, 2024 End: April 16, 2024 Dr. Johnson Friend , DO Attending Provider Active Start: April 16, 2024 End: April 16, 2024 Information And Referral Director Relationship Specialty Start Date End Date Agnes Del Rosario MD [address] [place] [address] PCP - General Family Medicine 01/12/21 Scott Pal MD [address] [place] [address] Referring Orthopedics 06/03/19 Scott Pal MD [address] [place] [address] Home Care Provider Orthopedics 06/03/19 John Garcia MD [address] [facility] [place], [place] 8457[address] Primary Staff Physician Cardiology 07/17/18 LashandalogMarilia stuart APRN.AIRCRAFT WORKER [address] [place] [address] 348271 Foreign Language Teacher Family Medicine 04/06/24 Amanda Curtis APRN.AIRCRAFT WORKER [address] [place] [address] [id number] Foreign Language Teacher Family [facility] 07/22/24 Information And Referral Director Relationship Specialty Start Date End Date Agnes Del Rosario MD [address] [place], [place] 589931 PCP - General Family Medicine 01/12/21 Scott Pal MD [address] [place] [address]79 Referring Orthopedics 06/03/19 Scott Pal MD [address] [address] Home Care Provider Orthopedics 06/03/19 John Garcia MD [address], Desk J[address] [place] [address] Primary Staff Physician Cardiology 07/17/18 PodlogMarilia stuart APRN.AIRCRAFT WORKER [address] [place] [address] Foreign Language Teacher Family Medicine 04/06/24 Amanda Curtis APRN.AIRCRAFT WORKER [address] [place] [address] 462201 Foreign Language Teacher Family [facility] 07/22/24 Information And Referral Director Relationship Specialty [place] [address] [place] [address] PCP - General Family Medicine 01/12/21 Scott Pal MD [address] [place] [address] 416[address] Referring Orthopedics 06/03/19 Scott Pal MD [address] [address] Home Care Provider Orthopedics 06/03/19 John Garcia MD [address], Desk J[address] [place] [address] Primary Staff Physician Cardiology 07/17/18 PodlogarMarilia APRN.AIRCRAFT WORKER [address] [place] [address] Foreign Language Teacher Family [facility] 04/06/24 Amanda Curtis APRN.AIRCRAFT WORKER [address] [place], [place] 499491 [facility] 07/22/24 Information And Referral Director Relationship Specialty Start Date End Date Agnes Del Rosario MD [address] [place], [place] 265931 PCP - General Family Medicine 01/12/21 Scott Pal MD [address] [address] Referring Orthopedics 06/03/19 Scott Pal MD [address] [address] Home Care Provider Orthopedics 06/03/19 John Garcia MD [address], [facility] [place], [place] 1146[address] Primary Staff Physician Cardiology 07/17/18 PodlogarMarilia APRN.AIRCRAFT WORKER [address] [place] [address] [facility] Family Medicine 04/06/24 Amanda Curtis APRN.AIRCRAFT WORKER [address] [place] [address] [facility] 07/22/24 Information And Referral Director Relationship Specialty Start Date End Date Agnes Del Rosario MD [address] [place], [place] 578131 PCP - General Family Medicine 01/12/21 Scott Pal MD [address] [address] Referring Orthopedics 06/03/19 Scott Pal MD [address] [address] Home Care Provider Orthopedics 06/03/19 John Garcia MD [address], Desk J2-3 [place], [place] 0285995 Primary Staff Physician Cardiology 07/17/18 PodlogarMarilia APRN.AIRCRAFT WORKER [address] [place] [address] Foreign Language Teacher Family Medicine 04/06/24 Amanda Curtis APRN.AIRCRAFT WORKER [address] [place] [address] Foreign Language Teacher Family Medicine 07/22/24 Information And Referral Director Relationship Specialty Start Date End Date Agnes Del Rosario MD [address] [place] [address] PCP - General Family Medicine 01/12/21 Scott Pal MD [address] [address] Referring Orthopedics 06/03/19 Scott Pal MD [address] [address] Home Care Provider Orthopedics 06/03/19 John Garcia MD [address], Adan J[address] [place] [address] Primary Staff Physician Cardiology 07/17/18 PodlogarMarilia APRN.AIRCRAFT WORKER [address] [place] [address] Foreign Language Teacher Family Medicine 04/06/24 Amanda Curtis APRN.AIRCRAFT WORKER [address] [place] [address] Foreign Language Teacher Family [facility] 07/22/24 Team Status: Inactive Member Role Status Dates Dr. Salvador Del Rosario MD Primary Care Provider Acti ve Start: September 17, 2024 End: September 17, 2024 Dr. Salvador Del Rosario MD Referring Provider Active Start: September 17, 2024 End: September 17, 2024 Dr. Troy Valentino MD Attending Provider Active Start: September 17, 2024 End: September 17, 2024 Information And Referral Director Relationship Specialty Start Date End Date Agnes Del Rosario MD [address] [place] [address] PCP - General Family Medicine 01/12/21 Scott Pal MD [address] [address] Referring Orthopedics 06/03/19 Scott Pal MD [address] [address] Home Care Provider Orthopedics 06/03/19 John Garcia MD [address], Desk J[address] [place] [address] Primary Staff Physician Cardiology 07/17/18 PodlogarMarilia APRN.AIRCRAFT WORKER [address] [place] [address] Foreign Language Teacher Family Medicine 04/06/24 Team Status: Inactive Member Role Status Dates Dr. Salvador Del Rosario MD Primary Care Provider Acti ve Start: October 07, 2024 End: October 07, 2024 Dr. Salvador Del Rosario MD Referring Provider Active Start: October 07, 2024 End: October 07, 2024 Dr. Alex Sher DO Attending Provider Active Start: October 07, 2024 End: October 07, 2024 Team Status: Active Member Role Status Dates Dr. Salvador Del Rosario MD Primary Care Provider Acti ve Start: October 07, 2024 Dr. Salvador Del Rosario MD Referring Provider Active Start: October 07, 2024 Dr. Alex Sher DO Attending Provider Active Start: October 07, 2024 Dr. Alex Sher DO Other Provider Active St art: October 07, 2024 Information And Referral Director Relationship Specialty Start Date End Date Agnes Del Rosario MD [address] [place] [address] PCP - General Family Medicine 01/12/21 Scott Pal MD [address] [address] Referring Orthopedics 06/03/19 Scott Pal MD [address] [address] Home Care Provider Orthopedics 06/03/19 John Garcia MD [address], Desk J2-[address] [place] [address] Primary Staff Physician Cardiology 07/17/18 PodlogarMarilia APRN.AIRCRAFT WORKER [address] [place] [address] Foreign Language Teacher Family Medicine 04/06/24 Information And Referral Director Relationship Specialty Start Date End Date Agnes Del Rosario MD [address] [place], [place] 509981 PCP - General Family Medicine 01/12/21 Scott Pal MD [address] [place] [address] Referring Orthopedics 06/03/19 Scott Pal MD [address] [place] [address] Home Care Provider Orthopedics 06/03/19 John Garcia MD [address], Desk J2-[address] [place] [address] Primary Staff Physician Cardiology 07/17/18 PodlogarMarilia APRN.AIRCRAFT WORKER [address] [place] [address] Foreign Language Teacher Family Medicine 04/06/24 Information And Referral Director Relationship Specialty Start Date End Date Agnes Del Rosario MD [address] [place] [address] PCP - General Family Medicine 01/12/21 Scott Pal MD [address] [address] Referring Orthopedics 06/03/19 Scott Pal MD [address] [facility] [address] [place] [address] Home Care Provider Orthopedics 06/03/19 John Garcia MD [address], Adan J[address] [place] [address] Primary Staff Physician Cardiology 07/17/18 PodlogarMarilia APRN.AIRCRAFT WORKER [address] [place] [address] Foreign Language Teacher Family [facility] 04/06/24 Amanda Curtis APRN.AIRCRAFT WORKER [address] [place], [place] 339271 [facility] Team Status: Active Member Role Status Dates Dr. Salvador Del Rosario MD Primary Care Provider Acti ve Start: October 07, 2024 End: October 07, 2024 Dr. Livan Freed MD Attending Provider Active Start: October 07, 2024 End: October 07, 2024 Dr. Alex Sher DO Referring Provider Active Start: October 07, 2024 End: October 07, 2024 Team Status: Active Member Role Status Dates Dr. Salvador Del Rosario MD Primary Care Provider Acti ve Start: October 22, 2024 Dr. Manuel Alvarez MD Emergency Provider Active Start: October 22, 2024 Dr. Werner Nunn DO Admit Provider Active Start: October 22, 2024 Dr. Werner Nunn DO Attending Provider Active Start: October 22, 2024 Information And Referral Director Relationship Specialty Start Date End Date Agnes Del Rosario MD [address] [place], [place] 909651 PCP - General Family Medicine 01/12/21 Scott Pal MD [address] [address] Referring Orthopedics 06/03/19 Scott Pal MD [address] [address] Home Care Provider Orthopedics 06/03/19 John Garcia MD [address]ÑA [facility] [place], [place] [id number] Primary Staff Physician Cardiology 07/17/18 PodlogarMarilia APRN.AIRCRAFT WORKER [address] [place], [place] 825381 Foreign Language Teacher Family Medicine 04/06/24 Amanda Curtis APRN.AIRCRAFT WORKER [facility] [place], [place] [address] Foreign Language Teacher Family Medicine 10/10/24 Team Status: Inactive Member Role Status Dates Dr. Salvador Del Rosario MD Primary Care Provider Acti ve Start: October 22, 2024 End: October 24, 2024 Dr. Manuel Alvarez MD Emergency Provider Active Start: October 22, 2024 End: October 24, 2024 Dr. Werner Nunn DO Admit Provider Active Start: October 22, 2024 End: October 24, 2024 Dr. Werner Nunn DO Other Provider Active Start: October 22, 2024 End: October 24, 2024 Dr. Marleny Tena DO Attending Provider Active Start: October 22, 2024 End: October 24, 2024 Team Status: Active Member Role Status Dates Dr. Salvador Del Rosario MD Primary Care Provider Acti ve Start: October 22, 2024 Dr. Manuel Alvarez MD Emergency Provider Active Start: October 22, 2024 Dr. Werner Nunn , Admit Provider Active Start: October 22, 2024 Dr. Werner Nunn , Other Provider Active Start: October 22, 2024 Dr. Marleny Tena , Other Provider Active S tart: October 22, 2024 Dr. Alex Sher , Attending Provider Active Start: October 22, 2024 Team Status: Active Member Role Status Dates Dr. Salvador Del Rosario MD Primary Care Provider Acti ve Start: October 23, 2024 Dr. Manuel Alvarez MD Emergency Provider Active Start: October 23, 2024 Dr. Werner Nunn DO Admit Provider Active Start: October 23, 2024 Dr. [place] Nunn DO Other Provider Active Start: October 23, 2024 Dr. Marleny Tena DO Attending Provider Active Start: October 23, 2024 Dr. Marleny Tena , Other Provider Active S tart: October 23, 2024 Team Status: Active Member Role Status Dates Dr. Salvador Del Rosario MD Primary Care Provider Acti ve Start: October 23, 2024 Dr. Manuel Alvarez MD Emergency Provider Active Start: October 23, 2024 Dr. Werner Nunn DO Admit Provider Active Start: October 23, 2024 Dr. Werner Nunn DO Other Provider Active Start: October 23, 2024 Dr. Marleny Tena , Other Provider Active S tart: October 23, 2024 Dr. Alex Sher , Attending Provider Active Start: October 23, 2024 Information And Referral Director Relationship Specialty Start Date End Date Agnes Del Rosario MD [address] [place] [address] PCP - General Family Medicine 01/12/21 Scott Pal MD [facility] E [facility] [address] [place] [address] Referring Orthopedics 06/03/19 Scott Pal MD [address] [address] Home Care Provider Orthopedics 06/03/19 John Garcia MD [address], Desk J[address] [place] [address] Primary Staff Physician Cardiology 07/17/18 PodlogarMarilia APRN.AIRCRAFT WORKER [address] [place] [phone] Foreign Language Teacher Family Medicine 04/06/24 Amanda Curtis APRN.AIRCRAFT WORKER [address] [place] [address] [phone] Foreign Language Teacher Family Medicine 10/10/24 John Dunlap, telecommunications field engineer Stencil Cutter 10/25/24 Information And Referral Director Relationship Specialty Start Date End Date Agnes Del Rosario MD [address] [place], [place] 134661 PCP - General Family Medicine 01/12/21 Scott Pal MD [address] [address] Referring Orthopedics 06/03/19 Scott Pal MD [address] [address] Home Care Provider Orthopedics 06/03/19 John Garcia MD [address], Desk J[address] [place] [address] Primary Staff Physician Cardiology 07/17/18 PodlogarMarilia APRN.AIRCRAFT WORKER [address] [place] [address] Foreign Language Teacher Family [facility] 04/06/24 Amanda Curtis APRN.AIRCRAFT WORKER [address] [place] [address] Foreign Language Teacher Family [facility] 10/10/24 John Dunlap RN Primary Care Stencil Cutter 10/25/24 Information And Referral Director Relationship Specialty Start Date End Date Agnes Del Rosario MD [facility] [facility] [place] [address] PCP - General Family Medicine 01/12/21 Scott Pal MD [address] [address] Referring Orthopedics 06/03/19 Scott Pal MD [address] [id number] Home Care Provider Orthopedics 06/03/19 John Garcia MD [address], [facility] [address] [place] [address] Primary Staff Physician Cardiology 07/17/18 PodlogarMarilia APRN.AIRCRAFT WORKER [address] [place] [address] [facility] 04/06/24 Amanda Curtis APRN.AIRCRAFT WORKER [address] [place] [address] [facility] Family [facility] 10/10/24 John Dunlap RN Primary Care Stencil Cutter 10/25/24 Information And Referral Director Relationship Specialty Start Date End Date Agnes Del Rosario MD [address] [place], [place] [id number] PCP - General Family Medicine 01/12/21 Scott Pal MD [address] [address] Referring Orthopedics 06/03/19 Scott Pal MD [address] [address] Home Care Provider Orthopedics 06/03/19 John Garcia MD [address], Desk [address] [place], [place] [id number] Primary Staff Physician Cardiology 07/17/18 PodlogarMarilia APRN.AIRCRAFT WORKER [address] [place], [place] [address] Foreign Language Teacher Family Medicine 04/06/24 Amanda Curtis APRN.AIRCRAFT WORKER [address] [place], [place] [id number] Foreign Language Teacher Family Medicine 10/10/24 John Dunlap RN Primary Care Stencil Cutter 10/25/24 Team Status: Active Member Role/Relationship Status Dates Dr. Salvador Del Rosario MD Primary Care Provider Acti ve Team Status: Inactive Member Role/Relationship Status Dates Dr. Salvador Del Rosario MD Primary Care Provider Acti ve Start: July 23, 2024 End: July 23, 2024 Dr. Salvador Del Rosario MD Referring Provider Active Start: July 23, 2024 End: July 23, 2024 Dr. Alex Sher , DO Attending Provider Active Start: July 23, 2024 End: July 23, 2024 Team Status: Inactive Member Role/Relationship Status Dates Dr. Salvador Del Rosario MD Primary Care Provider Acti ve Start: August 31, 2024 End: August 31, 2024 Isaias Trivedi MD Attending Provider Active Star t: August 31, 2024 End: August 31, 2024 Isaias Trivedi MD Emergency Provider Active Star t: August 31, 2024 End: August 31, 2024 Team Status: Inactive Member Role/Relationship Status Dates Dr. Salvador Del Rosario MD Primary Care Provider Acti ve Start: September 17, 2024 End: September 17, 2024 Dr. Salvador Del Rosario MD Referring Provider Active Start: September 17, 2024 End: September 17, 2024 Dr. Troy Valentino MD Attending Provider Active Start: September 17, 2024 End: September 17, 2024 Team Status: Inactive Member Role/Relationship Status Dates Dr. Salvador Del Rosario MD Primary Care Provider Acti ve Start: September 17, 2024 End: September 17, 2024 Dr. Isaias Velez MD Attending Provider Active S tart: September 17, 2024 End: September 17, 2024 Team Status: Inactive Member Role/Relationship Status Dates Dr. Salvador Del Rosario MD Primary Care Provider Acti ve Start: October 07, 2024 End: October 07, 2024 Dr. Salvador Del Rosario MD Referring Provider Active Start: October 07, 2024 End: October 07, 2024 Dr. Alex Sher DO Attending Provider Active Start: October 07, 2024 End: October 07, 2024 Team Status: Active Member Role/Relationship Status Dates Dr. Salvador Del Rosario MD Primary Care Provider Acti ve Start: October 07, 2024 End: October 07, 2024 Dr. Livan Freed MD Attending Provider Active Start: October 07, 2024 End: October 07, 2024 Dr. Alex Sher DO Referring Provider Active Start: October 07, 2024 End: October 07, 2024 Team Status: Active Member Role/Relationship Status Dates Dr. Salvador Del Rosario MD Primary Care Provider Acti ve Start: October 07, 2024 Dr. Salvador Del Rosario MD Referring Provider Active Start: October 07, 2024 Dr. Alex Sher DO Attending Provider Active Start: October 07, 2024 Dr. Alex Sher DO Other Provider Active St art: October 07, 2024 Team Status: Inactive Member Role/Relationship Status Dates Dr. Salvador Del Rosario MD Primary Care Provider Acti ve Start: October 22, 2024 End: October 24, 2024 Dr. Manuel Alvarez MD Emergency Provider Active Start: October 22, 2024 End: October 24, 2024 Dr. Werner Nunn , Admit Provider Active Start: October 22, 2024 End: October 24, 2024 Dr. Werner Nunn DO Other Provider Active Start: October 22, 2024 End: October 24, 2024 Dr. Marleny Tena DO Attending Provider Active Start: October 22, 2024 End: October 24, 2024 Team Status: Active Member Role/Relationship Status Dates Dr. Salvador Del Rosario MD Primary Care Provider Acti ve Start: October 22, 2024 Dr. Manuel Alvarez MD Emergency Provider Active Start: October 22, 2024 Dr. Werner Nunn DO Admit Provider Active Start: October 22, 2024 Dr. Werner Nunn DO Other Provider Active Start: October 22, 2024 Dr. Marleny Tena , Other Provider Active S tart: October 22, 2024 Dr. Alex Sher DO Attending Provider Active Start: October 22, 2024 Team Status: Active Member Role/Relationship Status Dates Dr. Salvador Del Rosario MD Primary Care Provider Acti ve Start: October 23, 2024 Dr. Manuel Alvarez MD Emergency Provider Active Start: October 23, 2024 Dr. Werner Nunn DO Admit Provider Active Start: October 23, 2024 Dr. Werner Nunn DO Other Provider Active Start: October 23, 2024 Dr. Marleny Tena DO Attending Provider Active Start: October 23, 2024 Dr. Marleny Tena , DO Other Provider Active S tart: October 23, 2024 Team Status: Active Member Role/Relationship Status Dates Dr. Salvador Del Rosario MD Primary Care Provider Acti ve Start: October 23, 2024 Dr. Manuel Alvarez MD Emergency Provider Active Start: October 23, 2024 Dr. Werner Nunn , DO Admit Provider Active Start: October 23, 2024 Dr. Werner Nunn DO Other Provider Active Start: October 23, 2024 Dr. Marleny Tena , Other Provider Active S tart: October 23, 2024 Dr. Alex Sher DO Attending Provider Active Start: October 23, 2024 Team Status: Active Member Role/Relationship Status Dates Dr. Salvador Del Rosario MD Primary Care Provider Acti ve Start: October 24, 2024 Dr. Manuel Alvarez MD Emergency Provider Active Start: October 24, 2024 Dr. Werner Nunn DO Admit Provider Active Start: October 24, 2024 Dr. Werner Nunn DO Other Provider Active Start: October 24, 2024 Dr. Marleny Tena DO Attending Provider Active Start: October 24, 2024 Dr. Marleny Tena , Other Provider Active S tart: October 24, 2024 Team Status: Active Member Role/Relationship Status Dates Dr. Salvador Del Rosario MD Primary Care Provider Acti ve Start: October 24, 2024 Dr. Manuel Alvarez MD Emergency Provider Active Start: October 24, 2024 Dr. Werner Nunn DO Admit Provider Active Start: October 24, 2024 Dr. Werner Nunn DO Other Provider Active Start: October 24, 2024 Dr. Marleny Tena DO Other Provider Active S tart: October 24, 2024 Dr. Alex Sher , Attending Provider Active Start: October 24, 2024 Team Status: Inactive Member Role/Relationship Status Dates Dr. Salvador Del Rosario MD Primary Care Provider Acti ve Start: November 06, 2024 End: November 06, 2024 Dr. Salvador Del Rosario MD Referring Provider Active Start: November 06, 2024 End: November 06, 2024 KARISSA Garcia Attending Provider Active Start: November 06, 2024 End: November 06, 2024 Information And Referral Director Relationship Specialty Start Date End Date Agnes Del Rosario MD [address] [place] [address] PCP - General Family Medicine 01/12/21 Scott Pal MD [address] [address] Referring Orthopedics 06/03/19 Scott Pal MD [address] [address] Home Care Provider Orthopedics 06/03/19 John Garcia MD [address], [employer] [address] [place], [place] [id number] Primary Staff Physician Cardiology 07/17/18 PodlogarMarilia APRN.AIRCRAFT WORKER [address] [place], [place] [id number] Foreign Language Teacher Family Medicine 04/06/24 Amanda Curtis APRN.AIRCRAFT WORKER [address] [place], [place] [phone] Foreign Language Teacher Family Medicine 10/10/24 John Dunlap, telecommunications field engineer Stencil Cutter 10/25/24 Information And Referral Director Relationship Specialty Start Date End Date Agnes Del Rosario MD [address] [place], [place] [phone] PCP - General Family Medicine 01/12/21 Scott Pal MD [address] [address] Referring Orthopedics 06/03/19 Scott Pal MD [address] [address] Home Care Provider Orthopedics 06/03/19 John Garcia MD [address] [place] [address] Primary Staff Physician Cardiology 07/17/18 PodlogMarilia stuart APRN.AIRCRAFT WORKER [address] [place], [place] [address] Foreign Language Teacher Family Medicine 04/06/24 Amanda Curtis APRN.AIRCRAFT WORKER [address] [place], [place] [address] [facility] 10/10/24 Team Status: Inactive Member Role/Relationship Status Dates Dr. Salvador Del Rosario MD Primary Care Provider Acti ve Start: August 31, 2024 End: August 31, 2024 Isaias Trivedi MD Attending Provider Active Star t: August 31, 2024 End: August 31, 2024 Isaias Trivedi MD Emergency Provider Active Star t: August 31, 2024 End: August 31, 2024 Team Status: Inactive Member Role/Relationship Status Dates Dr. Salvador Del Rosario MD Primary Care Provider Acti ve Start: September 17, 2024 End: September 17, 2024 Dr. Salvador Del Rosario MD Referring Provider Active Start: September 17, 2024 End: September 17, 2024 Dr. Troy Valentino MD Attending Provider Active Start: September 17, 2024 End: September 17, 2024 Team Status: Inactive Member Role/Relationship Status Dates Dr. Salvador Del Rosario MD Primary Care Provider Acti ve Start: September 17, 2024 End: September 17, 2024 Dr. Isaias Velez MD Attending Provider Active S tart: September 17, 2024 End: September 17, 2024 Team Status: Inactive Member Role/Relationship Status Dates Dr. Salvador Del Rosario MD Primary Care Provider Acti ve Start: October 07, 2024 End: October 07, 2024 Dr. Salvador Del Rosario MD Referring Provider Active Start: October 07, 2024 End: October 07, 2024 Dr. Alex Sher DO Attending Provider Active Start: October 07, 2024 End: October 07, 2024 Team Status: Active Member Role/Relationship Status Dates Dr. Salvador Del Rosario MD Primary Care Provider Acti ve Start: October 07, 2024 End: October 07, 2024 Dr. Livan Freed MD Attending Provider Active Start: October 07, 2024 End: October 07, 2024 Dr. Alex Sher DO Referring Provider Active Start: October 07, 2024 End: October 07, 2024 Team Status: Active Member Role/Relationship Status Dates Dr. Salvador Del Rosario MD Primary Care Provider Acti ve Start: October 07, 2024 Dr. Salvador Del Rosario MD Referring Provider Active Start: October 07, 2024 Dr. Alex Sher DO Attending Provider Active Start: October 07, 2024 Dr. Alex Sher DO Other Provider Active St art: October 07, 2024 Team Status: Inactive Member Role/Relationship Status Dates Dr. Salvador Del Rosario MD Primary Care Provider Acti ve Start: October 22, 2024 End: October 24, 2024 Dr. Manuel Alvarez MD Emergency Provider Active Start: October 22, 2024 End: October 24, 2024 Dr. Werner Nunn DO Admit Provider Active Start: October 22, 2024 End: October 24, 2024 Dr. Werner Nunn DO Other Provider Active Start: October 22, 2024 End: October 24, 2024 Dr. Marleny Tena DO Attending Provider Active Start: October 22, 2024 End: October 24, 2024 Team Status: Active Member Role/Relationship Status Dates Dr. Salvador Del Rosario MD Primary Care Provider Acti ve Start: October 22, 2024 Dr. Manuel Alvarez MD Emergency Provider Active Start: October 22, 2024 Dr. Werner Nunn DO Admit Provider Active Start: October 22, 2024 Dr. Werner Nunn DO Referring Provider Active Start: October 22, 2024 Dr. Werner Nunn DO Other Provider Active Start: October 22, 2024 Dr. Marleny Tena DO Other Provider Active S tart: October 22, 2024 Dr. Alex Sher , Attending Provider Active Start: October 22, 2024 Team Status: Active Member Role/Relationship Status Dates Dr. Salvador Del Rosario MD Primary Care Provider Acti ve Start: October 23, 2024 Dr. Manuel Alvarez MD Emergency Provider Active Start: October 23, 2024 Dr. Werner Nunn , Admit Provider Active Start: October 23, 2024 Dr. Werner Nunn DO Other Provider Active Start: October 23, 2024 Dr. Marleny Tena , Attending Provider Active Start: October 23, 2024 Dr. Marleny Tena DO Other Provider Active S tart: October 23, 2024 Team Status: Active Member Role/Relationship Status Dates Dr. Salvador Del Rosario MD Primary Care Provider Acti ve Start: October 23, 2024 Dr. Manuel Alvarez MD Emergency Provider Active Start: October 23, 2024 Dr. Werner Nunn DO Admit Provider Active Start: October 23, 2024 Dr. Werner Nunn DO Other Provider Active Start: October 23, 2024 Dr. Marleny Tena DO Referring Provider Active Start: October 23, 2024 Dr. Marleny Tena DO Other Provider Active S tart: October 23, 2024 Dr. Alex Sher , Attending Provider Active Start: October 23, 2024 Team Status: Active Member Role/Relationship Status Dates Dr. Salvador Del Rosario MD Primary Care Provider Acti ve Start: October 24, 2024 Dr. Manuel Alvarez MD Emergency Provider Active Start: October 24, 2024 Dr. Werner Nunn DO Admit Provider Active Start: October 24, 2024 Dr. Werner Nunn DO Other Provider Active Start: October 24, 2024 Dr. Marleny Tena DO Attending Provider Active Start: October 24, 2024 Dr. Marleny Tena DO Other Provider Active S tart: October 24, 2024 Team Status: Active Member Role/Relationship Status Dates Dr. Salvador Del Rosario MD Primary Care Provider Acti ve Start: October 24, 2024 Dr. Manuel Alvarez MD Emergency Provider Active Start: October 24, 2024 Dr. Werner Nunn DO Admit Provider Active Start: October 24, 2024 Dr. Werner Nunn DO Other Provider Active Start: October 24, 2024 Dr. Marleny Tena DO Referring Provider Active Start: October 24, 2024 Dr. Marleny Tena DO Other Provider Active S tart: October 24, 2024 Dr. Alex Sher DO Attending Provider Active Start: October 24, 2024 Team Status: Inactive Member Role/Relationship Status Dates Dr. Salvador Del Rosario MD Primary Care Provider Acti ve Start: November 06, 2024 End: November 06, 2024 Dr. Salvador Del Rosario MD Referring Provider Active Start: November 06, 2024 End: November 06, 2024 KARISSA Garcia Attending Provider Active Start: November 06, 2024 End: November 06, 2024 Team Status: Inactive Member Role/Relationship Status Dates Dr. Salvador Del Rosario MD Primary Care Provider Acti ve Start: December 26, 2024 End: December 26, 2024 Dr. Salvador Del Rosario MD Referring Provider Active Start: December 26, 2024 End: December 26, 2024 Dr. Alex Sher DO Attending Provider Active Start: December 26, 2024 End: December 26, 2024 Team Status: Active Member Role/Relationship Status Dates Dr. Salvador Del Rosario MD Primary Care Provider Acti ve Start: December 26, 2024 Dr. Salvador Del Rosario MD Referring Provider Active Start: December 26, 2024 Dr. Alex Sher DO Attending Provider Active Start: December 26, 2024 Dr. Alex Sher DO Other Provider Active St art: December 26, 2024 Information And Referral Director Relationship Specialty Start Date End Date Macario Duran MD [address] [place] [address] PCP - General 04/01/11 Goals (unrecognized section and content) Goals may be documented in a n alternate sectionGoals may be documented in an alternate section (unrecognized sect ion and content) No Status Records FoundNo Status Records FoundNo Status Records FoundNo Status Records FoundNo Status Records FoundNo Status Records Found INFORMATION SOURCE (unrecogn ized section and content) DATE CREATED AUTHOR 01/10/2023 [facility] DATE CREATED AUTHOR AUTHOR'S ORGANIZ ATION 01/22/2024 [facility] DATE CREATED AUTHOR AUTHOR'S ORGANIZ ATION 09/27/2024 [facility] DATE CREATED AUTHOR AUTHOR'S ORGANIZ ATION 12/24/2024 [facility] DATE CREATED AUTHOR AUTHOR'S ORGANIZ ATION 01/18/2025 [facility] DATE CREATED AUTHOR AUTHOR'S ORGANIZ ATION 02/06/2025 [facility] FOR RECORDS PERTAINING TO PATIENTS WHO ARE [...] BE BASED ON THE PRIMARY CLINICAL RECORDS. [employer] provides no warranty or guarantee of the accuracy or completeness of information in this document.
--- NOTE | 2025-02-15 13:40 | RAD_ITS ---
PROCEDURE: CHEST 1 VIEW (PORTABLE) 02/15/2025 REASON FOR EXAM: SHORTNESS OF BREATH TECHNIQUE: Frontal view of the chest. COMPARISON: Chest x-ray 10/22/2024. FINDINGS: Hardware: Monitor electrodes overlie the chest. Heart: No cardiomegaly. Lungs: Perihilar interstitial densities. No pleural effusion or pneumothorax. Bones: No acute bony abnormalities. RAD/Chest 1 View (Portable) IMPRESSION: Perihilar interstitial densities may represent pulmonary edema. Pneumonia can not be excluded. Reading Location: [id number]
[2025-02-15 13:58] LABS: Hematocrit 41.0 % (40-54); Hemoglobin 13.4 g/dL (13.0-16.5); Immature Granulocytes Count 0.050 X10^3/uL (0.0-0.0); Mean Corp Hgb Conc 32.7 g/dL (32-36); Mean Corpuscular Volume 93.6 fL (80-94); Mean Platelet Vol. 9.7 fl (6.2-12.0); NRBC Flagged by Analyzer 0 % (0-5); Platelet Count 211 K/mm3 (150-450); RBC Distribution Width CV 13.9 % (11.6-14.6); RBC Distribution Width SD 47.7 fl (35.1-43.9); Red Blood Count 4.38 M/mm3 (4.6-6.2); White Blood Count 12.1 K/mm3 (4.4-11.0)
[2025-02-15 15:09] LABS: Anion Gap 11 (5-15); BUN 17 mg/dL (4-19); BUN/Creat Ratio 17.7 RATIO (10-20); Calcium,Total 5.9 mg/dL (7.6-11.0); Carbon Dioxide 12.6 mmol/L (21.0-32.0); Chloride 119 mmol/L (98-108); Estimated Creatinine Clearance 88.46 ml/min (50-250); Glucose 84 mg/dL (70-99); Potassium 3.3 mmol/L (3.3-5.1)
[2025-02-15 16:17] LABS: Pro- Brain NATRIURETIC PEPTIDE 3571 pg/mL (<=1800)
[2025-02-15 16:55] LABS: Ionized Calcium Order ORDER TUBE
--- NOTE | 2025-02-15 17:13 | CM.ED ---
Social Work Date of referral: 02/15/25 Reason for referral: Advance Care Directives (ACD's) not on file Referred by: Documentation Consultant identification Patient provided consent to social work visit. Documentation Consultant requested a copy of patient's ACD's which patient agreed to bring in. No other requests at this time. Ana Johansen, MUSIC COORDINATOR, OVERLOCK OPERATOR
--- NOTE | 2025-02-15 17:25 | EKG12_ITS ---
Test Reason : REPEAT Blood Pressure : */* mmHG Vent. Rate : 53 BPM Atrial Rate : 79 BPM P-R Int : * ms QRS Dur : 92 ms QT Int : 478 ms P-R-T Axes : 61 65 25 degrees QTcB Int : 448 ms AV DISSASOCIATION Nonspecific ST abnormality Abnormal ECG Confirmed by EMMANUEL FORD, ESTRELLITA ([id number]), editorial manager SEAN DALTON ([id number]) on 02/17/2025 6:40:50 AM Referred By: Confirmed By: ESTRELLITA BENITEZ MD
[2025-02-15 17:40] LABS: SITE Not entered; VBG BASE EXCESS -2 mmol/L (-1.0-3.5); VBG PO2 26 mmHg (25-40); VBG SO2 51 % (50-70); VBG TCO2 24 mmol/L (23-33)
--- NOTE | 2025-02-15 18:47 | PCM.HP.STD ---
HPI - General General Date of Admission: 02/15/25 Date of Service: 02/15/25 Chief Complaint: Shortness of breath HPI Narrative FRAN PAREKH, is a 79-year-old male with a history of hypertension, hypothyroidism, PE who presented to [facility] ED 02/15/2025 with weight gain and increased shortness of breath. He reports he watch reels on Facebook and he became concerned about being on a water pill so he stopped taking it a week ago. In the ED temp 97.1, heart rate of 50, blood pressure 187/71, respiratory rate 24 and pulse ox 96% on room air. CBC with white count 12.1, hemoglobin 13, BMP reportedly with bicarb of 12.6 and a calcium of 5.9, BNP 3571. Chest x-ray with perihilar interstitial densities possibly representing pulmonary edema and given clinical picture with laboratory and x-ray findings patient diagnosed with acute heart failure exacerbation and hospitalist contacted for admission. Discussed with ED physician and patient with isolated low bicarb, VBG obtained which showed normal bicarb. Additionally patient began to have ectopy on telemetry and repeat EKG obtained which showed A-V dissociation. Cardiology contacted and recommended ICU admission, hold metoprolol and treat for fluid overload. Patient evaluated at bedside and reports about a week ago he stopped taking his hydrochlorothiazide because he saw a video on Facebook saying that his lower extremity swelling may be lymphedema and not fluid. Since that time he has had increasing lower extremity swelling, shortness of breath, and weight gain. No chest pain or fever. In the ED patient received Lasix, still feeling significantly short of breath. Denies any [id number] supplements aside from a regular multivitamin and no changes in medications aside from stopping his hydrochlorothiazide [facility] Medical History Ambulates with cane Arthritis Injury of back Back pain Migraine headache Injury of head and neck Non-smoker CPAP (continuous positive airway pressure) dependence Shortness of breath on exertion History of pain when walking History of edema Pulmonary embolism Pain Morbid obesity with BMI of 40.0-44.9, adult ROSSANA (acute kidney injury) Fever Lactic acidosis Cholangitis History of biliary stent insertion Biliary stricture Cancer Wears glasses Thyroid disease Shingles Inguinal hernia Cardiology follow-up encounter History of stress test Pancreatic cyst Choledocholithiasis 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 Elevated liver enzymes Pancreatic mass High cholesterol Hx of gastroesophageal reflux (GERD) Hypertension Home Medications ?Medication ?Instructions ?Recorded ?Last Taken ?Type lisinopril 40 mg tablet 40 mg PO DAILY blood pressure 01/31/13 12/25/24 History atorvastatin 40 mg tablet 40 mg PO QHS cholesterol #90 09/05/16 12/25/24 Rx TABLETS gabapentin 300 mg capsule 300 mg PO QHS nerve pain 10/22/23 12/25/24 History metoprolol succinate 50 mg 50 mg PO DAILY blood pressure 10/22/23 12/25/24 History tablet,extended release 24 hr apixaban 5 mg tablet (Eliquis) 5 mg PO BID blood thinner 03/26/24 12/23/24 History hydrochlorothiazide 25 mg tablet 25 mg PO DAILY reduce fluid 03/26/24 12/25/24 History levothyroxine 125 mcg tablet 125 mcg PO DAILY disorder of 03/26/24 12/25/24 History thyroid gland aspirin 81 mg tablet,delayed 81 mg PO DAILY 08/31/24 12/25/24 History release (Adult Aspirin Regimen) multivitamin (Daily Multi-Vitamin 1 tab PO DAILY 08/31/24 12/25/24 History tablet) acetaminophen 500 mg tablet 1,000 mg PO DAILY 12/25/24 02/15/25 History (Acetaminophen Extra Strength) Allergy/AdvReac Type Severity Reaction Status Date / Time azithromycin (From Zithromax) Allergy Itching Verified 02/15/25 12:51 bee venom protein (honey bee) AdvReac Swelling Verified 02/15/25 12:51 venom-wasp (wasps) AdvReac Swelling Verified 02/15/25 12:51 Surgical History History of total right hip arthroplasty S/P carpal tunnel release History of tonsillectomy History of ERCP Social History Smoking Status: Never smoker ROS ROS Narrative General: Denies fever/chills, does feel somewhat cold right now however HENT: Denies headache, denies stuffy nose, denies sore throat EYES: Denies changes in vision Resp: No productive cough, has had increasing shortness of breath Cardiac: Denies chest pain GI: Little bit of abdominal discomfort that he reports is from being hungry, denies changes in bowel, no overt nausea or vomiting : Sometimes has difficulty with his stream Extremity: Increased swelling of lower extremities MSK: Somewhat generally weak Neuro: Denies any numbness/tingling Heme: Denies any bleeding or bruising Skin: Denies rashes Psychiatric: No complaints voiced Vital Signs Vital Signs Vital Signs: 02/15/25 12:52 02/15/25 12:59 02/15/25 13:10 Temperature 97.1 F L Temperature Source Temporal Pulse Rate 50 L Respiratory Rate 24 H Respiratory Effort Short of Breath Respiratory Depth Deep Respiratory Pattern Normal Blood Pressure 187/71 H Blood Pressure Mean 109 Pulse Ox 96 97 Oxygen Delivery Method Room Air Room Air Room Air 02/15/25 13:50 02/15/25 14:00 02/15/25 15:00 Temperature Temperature Source Pulse Rate 46 L 46 L Respiratory Rate 25 H 24 H Respiratory Effort Respiratory Depth Respiratory Pattern Blood Pressure 136/73 H 136/73 H 137/79 H Blood Pressure Mean 94 94 98 Pulse Ox 96 97 97 Oxygen Delivery Method Room Air Room Air 02/15/25 16:00 02/15/25 17:00 02/15/25 18:00 Temperature Temperature Source Pulse Rate 56 L 50 L 52 L Respiratory Rate 24 H 25 H 25 H Respiratory Effort Respiratory Depth Respiratory Pattern Blood Pressure 153/68 H 153/79 H 162/75 H Blood Pressure Mean 96 103 104 Pulse Ox 99 95 94 Oxygen Delivery Method Room Air Room Air Room Air 02/15/25 18:03 Temperature 98 F Temperature Source Pulse Rate 52 L Respiratory Rate 25 H Respiratory Effort Respiratory Depth Respiratory Pattern Blood Pressure 162/75 H Blood Pressure Mean 104 Pulse Ox 94 Oxygen Delivery Method Weight Weight: 136.5 kg Body Mass Index (BMI) 41.9 Physical Exam Narrative General: Alert, oriented, appears unwell HEENT: Atraumatic, normocephalic Eyes: Anicteric, normal conjunctiva, extraocular movements grossly intact Neck: Supple Respiratory: Increased respiratory effort, diminished bilaterally Cardiovascular: Irregular GI: Nontender, protuberant Extremities: 1+ bilateral lower extremity edema Musculoskeletal: Moving all extremities Neuro: No overt focal neurological deficits Skin: No rashes appreciated Psych: Cooperative Results Lab / Micro Data 02/15/25 13:30 02/15/25 14:28 Labs: Laboratory Results - last 24 hr 02/15/25 13:30: WBC 12.1 H, RBC 4.38 L, Hgb 13.4, Hct 41.0, MCV 93.6, MCH 30.6, MCHC 32.7, RDW Std Deviation 47.7 H, RDW Coeff of Gisella 13.9, Plt Count 211, MPV 9.7, Immature Gran % (Auto) 0.400, Neut % (Auto) 71.6 H, Lymph % (Auto) 15.8 L, Pleasants % (Auto) 11.1 H, Eos % (Auto) 0.7, Baso % (Auto) 0.4, Absolute Neuts (auto) 8.7 H, Absolute Lymphs (auto) 1.92, Nucleated RBC % 0, Sodium Cancelled, Potassium Cancelled, Chloride Cancelled, Carbon Dioxide Cancelled, Anion Gap Cancelled, BUN Cancelled, Creatinine Cancelled, Estim Creat Clear Calc Cancelled, Est GFR (MDRD) Non-Af Cancelled, BUN/Creatinine Ratio Cancelled, Glucose Cancelled, Calcium Cancelled 02/15/25 14:28: Sodium 143, Potassium 3.3, Chloride 119 H, Carbon Dioxide 12.6 L, Anion Gap 11, BUN 17, Creatinine 0.94, Estim Creat Clear Calc 88.46, Est GFR (MDRD) Non-Af 82, BUN/Creatinine Ratio 17.7, Glucose 84, Calcium 5.9 L* 02/15/25 15:50: NT pro BNP II 3571 H ABG Data ABG results: ABG 02/15/25 17:36 Specimen Type [facility] Sample Site Not entered VBG pH 7.42 VBG pO2 26 VBG HCO3 23 VBG Total CO2 24 VBG O2 Sat (Calc) 51 VBG Base Excess -2 L POC Mix VBG pCO2 Pt Tmp 35.4 L O2 Delivery Device Not entered Imaging Radiology Impression Chest X-Ray 02/15/25 13:40 IMPRESSION: Perihilar interstitial densities may represent pulmonary edema. Pneumonia can not be excluded. Reading Location: [facility] Assessment & Plan Assessment/Plan (1) AV heart block: PLAN: Plan # A-V dissociation -Patient appears to be in heart block on telemetry and EKG -Discussed with cardiology who reviewed EKGs and rhythm strips -Admit to ICU -Monitor on telemetry -Hold metoprolol - Giving a dose of potassium as patient is on lower limits of normal with a potassium of 3.3 -Will be giving calcium as it is unclear if this is caused or exacerbated by hypocalcemia -Hold Eliquis in the event patient needs pacemaker -Obtain echocardiogram # Acute heart failure exacerbation -Possibly secondary to heart block -EKG and telemetry showing A-V dissociation and patient has no history of heart failure that he is aware of -Admit to ICU -proBNP 3571 -CXR perihilar interstitial densities which may represent pulmonary edema -Continue IV lasix - Echo ordered -Repeat echo ordered -Daily weights, I's and O's - Heart healthy diet # Hypocalcemia - Calcium listed 5.9, ionized calcium verbally reported out by lab at 1.25 with a reference range 4.36 to 5.20 mg/dL - Phos normal - Mag lower limits of normal, vitamin D 39 -Albumin within normal limits - PTH still pending -Discussed with chaperone, appears patient has been low normal or slightly low in past values, patient has been on hydrochlorothiazide for 10 years, it is possible that the hydrochlorothiazide was elevating his serum calcium and therefore maintaining his calcium levels and after he stopped it they dropped - It was advised to start calcitriol and IV calcium with a goal of lower limit of normal to start while additional lab workup pending #Hx PE -September 2023 -Holding Eliquis temporarily in the event pt needs pacer #Hypothyroidism -Continue Synthroid #Morbid obesity -BMI documented as 42 kg/m? at time of admission -Complicates treatment, prognosis, outcomes -Recommend weight loss and lifestyle changes #DVT ppx: SCDs Helen Feng MD Time spent in the patient's overall evaluation, decision-making process, review of diagnostic data, adjustment of management, discussion with other providers, nursing and ancillary staff involved in patient's care documentation, 95 Minutes Charges/Coding Visit Charges Inpatient E&M: 86707 Init Hosp L3
--- NOTE | 2025-02-15 18:52 | EKG12_ITS ---
Test Reason : bradycardia Blood Pressure : */* mmHG Vent. Rate : 59 BPM Atrial Rate : 59 BPM P-R Int : 210 ms QRS Dur : 84 ms QT Int : 482 ms P-R-T Axes : 53 27 21 degrees QTcB Int : 477 ms Sinus bradycardia with marked sinus arrhythmia with 1st degree A-V block Otherwise normal ECG When compared with ECG of 15-Feb-2025 20:58, MANUAL COMPARISON REQUIRED DATA IS UNCONFIRMED Confirmed by EMMANUEL FORD, ESTRELLITA ([id number]), video news editor SEAN DALTON ([id number]) on 02/17/2025 10:58:34 AM Referred By: Jung Confirmed By: ESTRELLITA BENITEZ MD
[2025-02-15 19:03] LABS: AST(SGOT) 34 U/L (<=37); Alanine Aminotransfer ALT/SGPT 36 U/L (<=46); Albumin, Serum 3.7 g/dL (3.4-4.8); Alkaline Phosphatase 102 U/L (40-129); Bilirubin, Direct 0.43 mg/dL (0.00-0.30); Globulin 3.2 g/dL (2.2-4.2); Vitamin D,25 Hydroxy 39.4 ng/mL (30-100)
[2025-02-15 19:19] LABS: Magnesium 1.8 mg/dL (1.5-2.2)
--- OUTSIDE RECORDS SUMMARY | 2025-02-15 19:26 | XMS RPT_ITS | CCD ---
Author Organization [facility] CliniSymo Care Team Providers Care Cashier Checker Name Role Phone Bruna Chowdary Unavailable Unavailable [...] Unavailable Luis BONILLA, Mitchel Fish Unavailable Podlogar VMWARE ENGINEER.COOKER SULFITE, Marilia Unavailable Renee FORD, Macario Dobbins Primary Care Provider Carin FORD, Dr. Franco Primary Care Provider Sang HILL, Dr. Guzman Emergency Provider Zach HILL, Dr. Mendez Admit Provider [phone] Dr. Andrea Serrano DO Other Provider Wally FORD, Dr. Altagracia Chaidez Attending Provider Shahzad FORD, Dr. Beau Jose Other Provider Wally FORD, Dr. Altagracia Chaidez Referring Provider Wally FORD, Dr. Altagracia Chaidez Other Provider Dr. Alex Sher DO Attending Provider Robbie FORD, Dr. Martin Attending Provider Dr. Salvador Del Rosario MD Referring Provider Dr. Alex Sher DO Other Provider Ever VMWARE ENGINEER.Amanda MONTANA Unavailable Carin FORD, Dr. Franco Primary Care Provider Rossy FORD, Dr. Oreilly Attending Provider Rossy FORD, Dr. Oreilly Referring Provider Carin FORD, Dr. Franco Referring Provider [phone] Nikky HILL, Dr. Johnson Attending Provider Nikky HILL, Dr. Johnson Other Provider Farooq FORD, Isaias Attending Provider Farooq FORD, Isaias Emergency Provider Chicho FORD, Dr. Simmons Attending Provider Rosie FORD, Dr. Esparza Attending Provider KIRUPAHARAN, PRADHAB Attending Unavailable VIRIDIANA, AMRQUITA Referring Unavailable BURSLEY, CHRISTOPHER B Primary Care Unavailab le KIRUPAHARAN, PRADHAB Attending Unavailable BURSLEY, CHRISTOPHER B Primary Care Unavailab le BURSLEY, CHRISTOPHER B Primary Care Unavailab le KIRUPAHARAN, PRADHAB Attending Unavailable SADANA, DIVYAJOT Attending Unavailable SADANA, DIVYAJOT Admitting Unavailable BRANDY FRAGOSO Referring Unavailable BURSLEY, CHRISTOPHER B Primary Care Unavailab le KIRUPAHARAN, PRADHAB Referring Unavailable BURSLEY, CHRISTOPHER B Primary Care Unavailab le Knoble VMWARE ENGINEER.COOKER SULFITE, Amanda Unavailable Lourdes FORD, Dr. Licona Attending [...] Johnson Other Provider Melanie Man Attending Provider AGNES DEL ROSARIO Primary Care Unavailab le [...] ROSARIO Primary Care Unavailab le AGNES DEL ROSRAIO Attending Unavailab le AGNES DEL ROSARIO Primary [...] ROSARIO Primary Care Unavailab le AGNES DEL ROSRAIO Referring Unavailab YOGESH Barbosa Attending Unavailable COLE CAMPOS Attending Unavailable CARIN, CHRISTOPHER B Primary Care Unavailab alverto Del Rosario MD, Dr. Franco Primary Care Provider Carin FORD, Dr. Franco Referring Provider [phone] Nikky DO, Dr. Johnson Attending Provider Nunn DO, Dr. Caldera Referring Provider Unav ailable Mallika DO, Dr. Suggs Referring Provider Carin, Salvador Primary Care Unavailable Sailors, Denilson Referring Unavailable Sailors, Denilson Attending Unavailable FriendAlex Referring Unavailable Livan Freed Attending Unavailable Hafsaley, Salvador Primary Care Unavailable Werner Nunn Consulting Unavailable Werner Nunn Admitting Unavailable Hafsaley, Salvador Primary Care Unavailable Marleny Tena Attending Unavailable Mraleny Tena Consulting Unavailable Hafsaley, Salvador Primary Care [...] amLODIPine (2 sources) amLODIPine Drug Allergy 7 [facility] Macrolides (antibiotic) (2 sources) Azithromycin Drug Allergy 5 [facility] (3 sources) Azithromycin Drug Allergy 4 [facility]at[facility] (20 sources) amLODIPine; Translations: [AMLODIPINE BESYLATE] Drug Allergy 7 [facility] (20 sources) Azithromycin; Translations: [AZITHROMYCIN] Drug Allergy 5 [facility] Work Phone: (20 sources) Venom-Wasp; Translations: [VENOM-WASP] Propensity to adverse reactions 5 [facility] Work Phone: (8 sources) bee venom protein (honey bee) Propensity to adverse reactions 5 [facility] (1 source) Azithromycin Drug Allergy [facility] Repository (1 source) venom-wasp Drug allergy (disorder) [facility] Repository (1 source) bee venom protein (honey bee) Drug allergy (disorder) [address] [facility] Repository Medications Current Medications Medication Drug Class(es) [...] on above: Take 1 capsule by mo [facility] every 8 hours as needed for cough for up to 15 days. CPAP (20 sources) Start: 02-12-20 CPAP Indications: MARTIN on CPAP AutoPAP [id number]. Mask per preference, tubing, filters, humidity. Lifetime Supplies. Dx: G47.33. Fax 30 day compliance report to [phone]. 1 Each 999 02/11/2022 Suspended Start: 02-11-2022 CPAP Indicatio ns: MARTIN on CPAP AutoPAP [id number]. Mask per preference, tubing, filters, humidity. Lifetime Supplies. Dx: G47.33. Fax 30 day compliance report to [phone]. 1 Each 999 02/11/2022 Active Start: 02-11-2021 [...] Active Start: 08-10-2016 End: 02-11-2022 CPAP AutoPAP [id number]. Mask per preference, tubing, filters, humidity. Lifetime Supplies. Dx: G47.33. Fax 30 day compliance report to [phone]. 1 Device 0 08/10/2016 02/11/2022 Discontinued Start: 08-10-2016 CPAP AutoPAP 5 -[id number]. Mask per preference, tubing, filters, humidity. Lifetime Supplies. Dx: G47.33. Fax 30 day compliance report to [phone]. 1 Device 0 08/10/2016 Active Comment on above: AutoPAP 5-19pvM4O. M ask per preference, tubing, filters, humidity. Lifetime Supplies. Dx: G47.33. Fax 30 day compliance report to [phone]. Please provide mask fitting. Pt with subjective and some degree objective leaks. Prefers nasal type mask. Thank you. DME = [employer] AutoPAP [id number]. Mask per preference, tubing, filters, humidity. Lifetime Supplies. Dx: G47.33. Fax 30 day compliance report to [phone]. CPAP/BIPAP/OTHER (7 sources) Start: 5 End: CPAP/BIPAP/OTHER [...] / neomycin 3.5 mg/ml / polymyxin b 72540 unt/ml otic suspension (1 source) Aminoglycoside Antibacterial, Polymyxin-class Antibacterial, Corticosteroid Start: 11-11-2021 End: 11-18-2021 iuabxjxb-vbvtsjchd-rz drocortisone (CORTISPORIN) 3.5-10,000-1 mg/mL-unit/mL-% otic suspension Use [...] topically if needed. 01/04/2019 Active Start: 01-04-2019 988519 Medicat ion ammonium lactate 12 % lotion [...] 12:00am March 26, 2024 9:48am Start: 02-14-2014 307481 Medicat ion levothyroxine 200 mcg tablet Synthroid 200 mcg 02/14/2014 Active (Outside) Comment on above: Take 1 tablet by lazaro th once daily. TAKE 1 TABLET BY MOUTH ONCE DAILY. TAKE ON EMPTY STOMACH. FOR THYROID TAKE 1 TABLET BY LAZARO TH EVERY DAY ON AN EMPTY STOMACH FOR THYROID lisinopril 40 mg oral tablet (20 sources) Angiotensin Converting Enzyme Inhibitor Start: 02-14-2014 554901 Medication lisinopril lisinopril 20 mg 02/14/2014 Active [...] take 1 tablet by mouth once daily MULTIVITAMIN,TX-CUSTOMER SERVICE ASSISTANT ALS ORAL TAB Take one(1) tablet daily. 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 [facility] Ambulatory Lesion biopsyon 01-30-2025 Type of [...] instructions given Dressing type: petrolatum and bandage [facility] Work Phone: [facility] Work Phone: ERCP Biliary/Pancreason 11-30 ERCP Biliary/Pancreas Normal [facility] ERCP Reporton 12-26-2024 ERCP Report Normal [facility] MR/OP.PROVATon 12-26-2024 MR/OP.PROVAT Normal [facility] MR/POSTOP.ANEon 12-26-2024 MR/POSTOP.ANE [facility] MR/NWCXUBKE3oo 12-26-2024 MR/POSTOPAN2 [facility] Special Stain Group IIon Special Stain Group II [facility] Comment on above: Performed By: #### P SSII ####[facility] [address] [place], [address] Surgery Specimen Level Marcela 12-26-2024 Surgery Specimen Level IV [facility] Comment on above: Performed By: #### P SUIV ####[facility] [address] [place], [address] MR/PAT.ANEon 12-25-2024 MR/PAT.[facility] CNPNon 12-23-2024 [facility] Telephone (FAMPWS) -- IGLESIAFRAN ([id number]) 1945 M Date Time Provider Department 12/23/24 AGNES DEL ROSARIO During your visit today, we recorded the following information about you: Agustín Monroy RN 12/23/2024 8:44 AM Signed Patient calls to request x-ray results of left hand/wrist from 10/08/2024 be faxed to pain management (Dr. Cabezas). Faxed to [phone] per request. Agustín Monroy RN Allergies As [...] mouth daily at bedtime. - CPAP AutoPAP [id number]. Mask per preference, tubing, filters, humidity. Lifetime Supplies. Dx: G47.33. Fax 30 day compliance report to [phone]. - CPAP Please provide mask fitting. Pt [...] 03/25/2009 Open fracture of distal phalangeal tuft [PUD863*08/31/2011 05/09/2014 Internal derangement of right knee [M23.91] [...] Encounter Status:Closed by AGUSTÍN MONROY on 12/23/24 [facility] Frederic 11-15-2024 RUBÉNN Telephone (FAMPWS) -- IGLESIAVERÓNICAN Tarah ([id number]) 1945 M Date Time Provider Department 11/15/24 [...] mouth daily at bedtime. - CPAP AutoPAP 10-79gdQ6W. Mask per preference, tubing, filters, humidity. Lifetime Supplies. Dx: G47.33. Fax 30 day compliance report to [phone]. - CPAP Please provide mask fitting. Pt [...] 03/25/2009 Open fracture of distal phalangeal tuft [BHN191*08/31/2011 05/09/2014 Internal derangement of right knee [M23.91] [...] by WOR (more content not included)... Normal [facility] Gastroenterology Visit Repor ton 11-06-2024 Gastroenterology Visit Report Normal [facility] CNOVon 10-31-2024 CNOV Office Visit (SLEWST ) -- FRAN PAREKH ([id number]) 1945 M Date Time Provider Department 10/31/24 11:00 AM GHAZALA KUMAR SLEWSCharlene During your visit today, we recorded the following information about you: Pulse Respiration Blood pressure Weight 60/minute 16/minute 149/90 132.9 kg Ghazala Kumar APRN.COOKER SULFITE 10/31/2024 11:19 AM Signed [facility] Follow up/ Established patient [...] by mouth daily at bedtime. CPAP AutoPAP 10-88lyD3T. Mask per preference, tubing, filters, humidity. Lifetime Supplies. Dx: G47.33. Fax 30 day compliance report to [phone]. CPAP Please provide mask fitting. Pt with [...] - Continue Auto CPAP at 10-20, DME DalmaMdrxbsQ0F. - Remember to clean your mask and equipment regularly, as directed. - You should be eligible for new supplies approximately every 3-6 months, depending on your insurance coverage. Contact your Durable Medical Equipment (DME) company for new supplies as needed. - Follow up in 12 mo (more content not included)... 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 - CPAP AutoPAP [id number]. Mask per preference, tubing, filters, humidity. Lifetime Supplies. Dx: G47.33. Fax 30 day compliance report to [phone]. - CPAP Please provide mask fitting. Pt [...] 03/25/2009 Open fracture of distal phalangeal tuft [HLS780*08/31/2011 05/09/2014 Internal derangement of right knee [M23.91] [...] Encounter Number: (more content not included)... Normal [facility] CNOVon 10-28-2024 CNOV Office Visit (FAMPWS ) -- IGLESIAFRAN R ([id number]) 1945 M Date Time Provider Department 10/28/24 1:20 PM MARILIA OROZCO During your visit today, we recorded the following information about you: Temperature Pulse Respiration Blood pressure 98.1 degrees 54/minute 18/minute 138/76 Weight 132.3 kg Marilia Orozco APRN.CNP 10/28/2024 2:29 PM Signed 10/28/2024 Patient presents with: Hospital F/U Recording using CarePayment software for draft documentation of the visit was discussed with the patient/authorized senior patient account representative; all questions welcomed and answered. Patient/authorized senior patient account representative agreed to proceed SUBJECTIVE: This is [...] since discharge. - Monitoring diet closely, eating nutrition services assistant meals, and avoiding snacks. - No new [...] APRN, CNP within 14 days. Thank you! [facility] Referral Source of Stratification: [facility] Hospital Admission Status: Discharged Readmission Risk Score: N/A OON Patient's zip code: [address] Is zip code within program service area: No Patient meets program referral criteria: No Patient does not qualify for High Risk TCM Home Visit program due to: Patient's zip code is not located within program service area Readmission Risk Score does not meet criteria Disposition: Patient does not qualify for HRTIC, will provide TCM outreach follow-up for 30-days Patient Source: Acz-qg-Yinhqaa (OON) Discharge Outreach Summary: Patient feeling much better. 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 Thanks [facility] for the call. Patient discharged from [facility] Discharge date: 10/24/2024 Admitted for: Fever, nausea, vomiting, Cholangitis, ROSSANA Readmission Risk: N/A OON Value-Based Contract: ACO Contact: Contact made with patient: Yes Hi, my name is John Dunlap RN and I am calling from the [facility] on behalf of your Primary Care Provider, [...] confirm resp (more content not included)... Normal [facility] Culture, Blood (WB)on 2024 CUB Blood cultures x2, f rom two different sites No growth in 5 days. Normal [facility] Comment on above: Performed By: #### L 100.0100, L300.4310, L300.3900, M200.1000, L503.6005 ####[facility] [address] [place], [place], [address] Discharge Instructionon 09-30 Discharge Instruction Normal [facility] Urine Cultureon 10-24-2024 URC Pending Mixed Gram Positive Organisms Exira Count 11,000-25,000 MIXC Mixed contaminants. Submit a new specimen if indicated. Normal [facility] Comment on above: Performed By: #### L 400.0001, M100.2200 ####[facility] [address] [place], [place], [address] Absolute lymphocyte countOrd ered By: Werner Shin on 10-23-2024 Lymphocytes Auto (Unsp spec) [#/Vol] 1.75 10*3/uL 0.83-4.[address] [facility] Absolute neutrophil countOrd ered By: Werner Shin on 10-23-2024 Neutrophils (Bld) [#/Vol] 7.1 10*3/uL 2.0-7.[address] [facility] Anion gap in Serum or Plasma Ordered By: Werner Shin on 10-23-2024 Anion gap [Moles/Vol] 11 mmol/L 5-15 [facility] Automated lymphocyte count a s percentage of total leukocytesOrdered By: Werner Shin on 10-23-2024 Lymphocytes/100 WBC Auto (Unsp spec) 17.6 % Low 19-[address] [facility] BUN/creatinine ratioOrdered By: Werner Shin on 10-23-2024 Urea nitrogen/Creatinine [Mass ratio] 11.9 mg/mg 10-[address] [facility] Basophil percentageOrdered B y: Werner Shin on 10-23-2024 Basophils/100 WBC (Bld) 0.2 % 0-[address] [facility] Bilirubin, totalOrdered By: Werner Shin on 10-23-2024 Bilirubin [Mass/Vol] 0.89 mg/dL 0.00-1.30 [facility] CBC W/Diff, Automatedon 09-30 Absolute Lymph 1.75 X10 3/uL Normal 0.83-4.[address] [facility] Comment on above: Performed By: #### L 500.4050, L100.0100 ####[facility] [address] [place], [address] Absolute Neut 7.1 X10 3/uL Normal 2.0-7.[address] [facility] Comment on above: Performed By: #### L 500.4050, L100.0100 ####[facility] [address] [place], [address] Basophils/100 WBC (Bld) 0.2 % Normal 0-[address] [facility] Comment on above: Performed By: #### L 500.4050, L100.0100 ####[facility] [address] [place], [address] Eosinophils/100 WBC (Bld) 0.2 % Normal 0-[address] [facility] Comment on above: Performed By: #### L 500.4050, L100.0100 ####[facility] [address] [place], [address] Erythrocyte distribution width (RBC) [Ratio] 13.4 % Normal 11.6-14.[address] [facility] Comment on above: Performed By: #### L 500.4050, L100.0100 ####[facility] [address] [place], [address] Hematocrit (Bld) [Volume fraction] 40.8 % Normal 40-[address] [facility] Comment on above: Performed By: #### L 500.4050, L100.0100 ####[facility] [address] [place], [address] Hemoglobin (Bld) [Mass/Vol] 13.6 g/dL Normal 13.0-16.[address] [facility] Comment on above: Performed By: #### L 500.4050, L100.0100 ####[facility] [address] [place], [address] IG% 0.500 Normal 0.0-0.[address] [facility] Comment on above: Result Comment: IG% - Immature Granulocytes (promyelocytes, myelocytes andmetamyelocytes) > 1% indicates that a LEFT SHIFT is Present. Performed By: #### L 500.4050, L100.0100 ####[facility] [address] [place], [address] Lymphocytes/100 WBC (Bld) 17.6 % Low 19-[address] [facility] Comment on above: Performed By: #### L 500.4050, L100.0100 ####[facility] [address] [place], [address] MCH (RBC) [Entitic mass] 31.9 pg Normal 27.0-32.[address] [facility] Comment on above: Performed By: #### L 500.4050, L100.0100 ####[facility] [address] [place], [address] MCHC (RBC) [Mass/Vol] 33.3 g/dL Normal 32-36 [facility] Comment on above: Performed By: #### L 500.4050, L100.0100 ####[facility] [address] [place], [address] MCV (RBC) [Entitic vol] 95.8 fL High 80-[address] [facility] Comment on above: Performed By: #### L 500.4050, L100.0100 ####[facility] [address] [place], [address] Monocytes/100 WBC (Bld) 9.8 % Normal 0-[address] [facility] Comment on above: Performed By: #### L 500.4050, L100.0100 ####[facility] [address] [place], [address] Neutrophils/100 WBC (Bld) 71.7 % High 47-[address] [facility] Comment on above: Performed By: #### L 500.4050, L100.0100 ####[facility] [address] [place], [address] Nucleated RBC (Bld) [#/Vol] 0 10*3/uL Normal 0-[address] [facility] Comment on above: Performed By: #### L 500.4050, L100.0100 ####[facility] [address] [place], [address] Platelet mean volume (Bld) [Entitic vol] 9.4 fL Normal 6.2-12.[address] [facility] Comment on above: Performed By: #### L 500.4050, L100.0100 ####[facility] [address] [place], [address] Platelets (Bld) [#/Vol] 178 10*3/uL Normal 150-[address] [facility] Comment on above: Performed By: #### L 500.4050, L100.0100 ####[facility] [address] [place], [address] RBC (Bld) [#/Vol] 4.26 10*6/uL Low 4.6-6.2 [facility] Comment on above: Performed By: #### L 500.4050, L100.0100 ####[facility] [address] [place], [address] RDW SD 47.3 fl High 35.1-43.[address] [facility] Comment on above: Performed By: #### L 500.4050, L100.0100 ####[facility] [address] [place], [address] WBC (Bld) [#/Vol] 9.9 10*3/uL Normal 4.4-11.0 [facility] Comment on above: Performed By: #### L 500.4050, L100.0100 ####[facility] [address] [place], [address] Carbon dioxide, total [Moles /volume] in Central venous bloodOrdered By: Werner Shin on 10-23-2024 CO2 [Moles/Vol] 24.0 mmol/L 21.0-32.[address] [facility] Chloride assayOrdered By: Emiliano Shin on 10-23-2024 Chloride [Moles/Vol] 105 mmol/L 98-108 [facility] Comprehensive Metabolic Prof ilon 10-23-2024 Albumin [Mass/Vol] 3.3 g/dL Low 3.4-4.8 [facility] Comment on above: Performed By: #### L 500.4050, L100.0100 ####[facility] [address] [place], [address] Albumin/Globulin [Mass ratio] 1.2 {ratio} Normal 0.9-2.[address] [facility] Comment on above: Performed By: #### L 500.4050, L100.0100 ####[facility] [address] [place], [address] ALK PHOS 79 U/L Normal 40-[address] [facility] Comment on above: Performed By: #### L 500.4050, L100.0100 ####[facility] [address] [place], [address] ALT [Catalytic activity/Vol] 30 U/L Normal <=[address] [facility] Comment on above: Performed By: #### L 500.4050, L100.0100 ####[facility] [address] [place], [address] AST [Catalytic activity/Vol] 29 U/L Normal <=[address] [facility] Comment on above: Performed By: #### L 500.4050, L100.0100 ####[facility] [address] [place], [address] Bilirubin [Mass/Vol] 0.89 mg/dL Normal 0.00-1.30 [facility] Comment on above: Performed By: #### L 500.4050, L100.0100 ####[facility] [address] [place], [address] BUN/CRE 11.9 RATIO Normal 10-[address] [facility] Comment on above: Performed By: #### L 500.4050, L100.0100 ####[facility] [address] [place], [address] Calcium [Mass/Vol] 7.9 mg/dL Normal 7.6-11.0 [facility] Comment on above: Performed By: #### L 500.4050, L100.0100 ####[facility] [address] [place], [address] Chloride [Moles/Vol] 105 mmol/L Normal 98-108 [facility] Comment on above: Performed By: #### L 500.4050, L100.0100 ####[facility] [address] [place], [address] CO2 [Moles/Vol] 24.0 mmol/L Normal 21.0-32.[address] [facility] Comment on above: Performed By: #### L 500.4050, L100.0100 ####[facility] [facility] [address] [place], [address] Creatinine [Mass/Vol] 1.78 mg/dL High 0.70-1.20 [facility] Comment on above: Performed By: #### L 500.4050, L100.0100 ####[facility] [address] [place], [address] ECRCL 45.90 ml/min Low 50-[address] [facility] Comment on above: Performed By: #### L 500.4050, L100.0100 ####[facility] [address] [place], [address] GAP 11 Normal 5-[address] [facility] Comment on above: Performed By: #### L 500.4050, L100.0100 ####[facility] [address] [place], [address] GFR/1.73 sq M.predicted among non-blacks MDRD (S/P/Bld) [Vol rate/Area] 38 mL/min/{1.73_m2} Low >[address] [facility] Comment on above: Result Comment: mL/m in/1.73m2 CKD-EPI Creatinine Equation (2020) Performed By: #### L 500.4050, L100.0100 ####[facility] [address] [place], [address] Globulin (S) [Mass/Vol] 2.7 g/dL Normal 2.2-4.[address] [facility] Comment on above: Performed By: #### L 500.4050, L100.0100 ####[facility] [address] [place], [address] Glucose [Mass/Vol] 125 mg/dL High 70-99 [facility] Comment on above: Performed By: #### L 500.4050, L100.0100 ####[facility] [address] [place], [address] Potassium [Moles/Vol] 4.2 mmol/L Normal 3.3-5.1 [facility] Comment on above: Performed By: #### L 500.4050, L100.0100 ####[facility] [address] [place], [address] Sodium [Moles/Vol] 140 mmol/L Normal 133-145 [facility] Comment on above: Performed By: #### L 500.4050, L100.0100 ####[facility] [address] [place], [address] T PROT 5.9 g/dL Normal 5.9-8.[address] [facility] Comment on above: Performed By: #### L 500.4050, L100.0100 ####[facility] [address] [place], [address] Urea nitrogen [Mass/Vol] 21 mg/dL High 4-[address] [facility] Comment on above: Performed By: #### L 500.4050, L100.0100 ####[facility] [address] [place], [address] Eosinophil percentageOrdered By: Werner Shin on 10-23-2024 Eosinophils/100 WBC (Bld) 0.2 % 0-[address] [facility] Erythrocyte distribution wid th ratioOrdered By: Werner Shin on 10-23-2024 Erythrocyte distribution width (RBC) [Ratio] 13.4 % 11.6-14.[address] [facility] Erythrocyte distribution wid th standard deviationOrdered By: Werner Shin on 10-23-2024 Erythrocyte distribution width (RBC) [Ratio] 47.3 fl High 35.1-43.[address] [facility] Glomerular filtration rate ( GFR) estimation/1.73 sq m using serum, plasma, or whole bOrdered By: Werner Shin on 10-23-2024 GFR/1.73 sq M.predicted among non-blacks MDRD (S/P/Bld) [Vol rate/Area] 38 mL/min/{1.73_m2} Low >[address] [facility] Comment on above: mL/min/1.73m2 CKD-EP I Creatinine Equation (2020) Hematocrit Auto (Bld) [Volum e fraction]Ordered By: Werner Shin on 10-23-2024 Hematocrit (Bld) [Volume fraction] 40.8 % 40-[address] [facility] Hemoglobin measurementOrdere d By: Werner Shin on 10-23-2024 Hemoglobin (Bld) [Mass/Vol] 13.6 g/dL 13.0-16.[address] [facility] Immature granulocytes/100 WB C Auto (Bld)Ordered By: Werner Shin on 10-23-2024 Immature granulocytes/100 WBC (Bld) 0.500 % 0.0-0.[address] [facility] Comment on above: IG% - Immature Granu locytes (promyelocytes, myelocytes and metamyelocytes) > 1% indicates that a LEFT SHIFT is Present. Laboratory - Chemistry and C hemistry - challengeOrdered By: Werner Shin on 10-23-2024 AST [Catalytic activity/Vol] 29 U/L <[address] [facility] MCV (mean corpuscular volume ) determinationOrdered By: Werner Shin on 10-23-2024 MCV (RBC) [Entitic vol] 95.8 fL High 80-[address] [facility] Mean corpuscular hemoglobin (MCH) determinationOrdered By: Werner Shin on 10-23-2024 MCH (RBC) [Entitic mass] 31.9 pg 27.0-32.[address] [facility] Mean corpuscular hemoglobin concentration (MCHC) determinationOrdered By: Werner Shin on 10-23-2024 MCHC (RBC) [Mass/Vol] 33.3 g/dL 32-36 [facility] Mean platelet volume determi nationOrdered By: Werner Shin on 10-23-2024 Platelet mean volume (Bld) [Entitic vol] 9.4 fL 6.2-12.[address] [facility] Monocyte percentageOrdered B y: Werner Shin on 10-23-2024 Monocytes/100 WBC (Bld) 9.8 % 0-[address] [facility] Neutrophil percentageOrdered By: Werner Shin on 10-23-2024 Neutrophils/100 WBC (Bld) 71.7 % High 47-[address] [facility] Nucleated red blood cell per centageOrdered By: Werner Shin on 10-23-2024 Nucleated RBC/100 WBC (Bld) [Ratio] 0 % 0-[address] [facility] Platelet countOrdered By: Emiliano Shin on 10-23-2024 Platelets (Bld) [#/Vol] 178 10*3/uL 150-[address] [facility] Potassium measurement (mass/ volume)Ordered By: Werner Shin on 10-23-2024 Potassium (Unsp spec) [Mass/Vol] 4.2 mmol/L 3.3-5.[address] [facility] RBC Auto (Bld) [#/Vol]Ordere d By: Werner Shin on 10-23-2024 RBC (Bld) [#/Vol] 4.26 10*6/uL Low 4.6-6.2 [facility] Serum creatinine measurement (mass/volume)Ordered By: Werner Shin on 10-23-2024 Creatinine [Mass/Vol] 1.78 mg/dL High 0.70-1.20 [facility] Serum globulin measurementOr dered By: Werner Shin on 10-23-2024 Globulin (S) [Mass/Vol] 2.7 g/dL 2.2-4.[address] [facility] Serum glucose measurement (m ass/volume)Ordered By: Werner Shin on 10-23-2024 Glucose [Mass/Vol] 125 mg/dL High 70-99 [facility] Serum or plasma alanine wilde otransferase (ALT) measurementOrdered By: Werner Shin on 10-23-2024 ALT [Catalytic activity/Vol] 30 U/L <[address] [facility] Serum or plasma albumin anson urement (mass/volume)Ordered By: Werner Shin on 10-23-2024 Albumin [Mass/Vol] 3.3 g/dL Low 3.4-4.8 [facility] Serum or plasma albumin/glob ulin mass ratioOrdered By: Werner Shin on 10-23-2024 Albumin/Globulin [Mass ratio] 1.2 {ratio} 0.9-2.[address] [facility] Serum or plasma alkaline rui sphatase measurementOrdered By: Werner Shin on 10-23-2024 ALP [Catalytic activity/Vol] 79 U/L 40-[address] [facility] Serum or plasma calcium anson urement (mass/volume)Ordered By: Werner Shin on 10-23-2024 Calcium [Mass/Vol] 7.9 mg/dL 7.6-11.0 [facility] Serum or plasma urea nitroge n measurement (mass/volume)Ordered By: Werner Shin on 10-23-2024 Urea nitrogen [Mass/Vol] 21 mg/dL High 4-[address] [facility] Sodium levelOrdered By: Dennys Shin on 10-23-2024 Sodium [Moles/Vol] 140 mmol/L 133-145 [facility] Total proteinOrdered By: Efrain Shin on 10-23-2024 Protein [Mass/Vol] 5.9 g/dL 5.9-8.4 [facility] White blood cell (WBC) count Ordered By: Werner Shin on 10-23-2024 WBC (Bld) [#/Vol] 9.9 10*3/uL 4.4-11.0 [facility] 12 Lead EKGon 10-22-2024 12 Lead EKG Normal [facility] Abdomen/Pelvis W IV Cont ONL Yon 10-22-2024 Abdomen/Pelvis W IV Cont ONLY Normal [facility] Absolute lymphocyte countOrd ered By: Manuel Alvarez on 10-22-2024 Lymphocytes Auto (Unsp spec) [#/Vol] 0.51 10*3/uL Low 0.83-4.[address] [facility] Absolute neutrophil countOrd ered By: Manuel Alvarez on 10-22-2024 Neutrophils (Bld) [#/Vol] 9.4 10*3/uL High 2.0-7.[address] [facility] Activated partial thrombopla stin time (aPTT) in platelet poor plasma by coagulation aOrdered By: Manuel Alvarez on 10-22-2024 aPTT Coag (PPP) [Time] 27.9 s 24.1-36.2 [facility] Anion gap in Serum or Plasma Ordered By: Manuel Alvarez on 10-22-2024 Anion gap [Moles/Vol] 13 mmol/L 5-15 [facility] Automated lymphocyte count a s percentage of total leukocytesOrdered By: Manuel Alvarez on 10-22-2024 Lymphocytes/100 WBC Auto (Unsp spec) 4.8 % Low 19-[address] [facility] BUN/creatinine ratioOrdered By: Manuel Alvarez on 10-22-2024 Urea nitrogen/Creatinine [Mass ratio] 15.2 mg/mg 10-[address] [facility] Basophil percentageOrdered B y: Manuel Alvarez on 10-22-2024 Basophils/100 WBC (Bld) 0.2 % 0-[address] [facility] Bilirubin Test strip Ql (U)O rdered By: Manuel Alvarez on 10-22-2024 Bilirubin Ql (U) Negative Negative [facility] Bilirubin, totalOrdered By: Manuel Alvarez on 10-22-2024 Bilirubin [Mass/Vol] 0.75 mg/dL 0.00-1.30 [facility] Blood cultureOrdered By: Tata Alvarez on 10-22-2024 Bacteria identified Cx Nom (Bld) No growth in [address] [facility] Bacteria identified Cx Nom (Bld) No growth in [address] [facility] CBC W/Diff, Automatedon 09-30 Absolute Lymph 0.51 X10 3/uL Low 0.83-4.[address] [facility] Comment on above: Performed By: #### L 100.0100, L300.4310, L300.3900, M200.1000, L503.6005 ####[facility] [address] [place], [address] Absolute Neut 9.4 X10 3/uL High 2.0-7.[address] [facility] Comment on above: Performed By: #### L 100.0100, L300.4310, L300.3900, M200.1000, L503.6005 ####[facility] [address] [place], [address] Basophils/100 WBC (Bld) 0.2 % Normal 0-[address] [facility] Comment on above: Performed By: #### L 100.0100, L300.4310, L300.3900, M200.1000, L503.6005 ####[facility] [address] [place], [address] Eosinophils/100 WBC (Bld) 0.1 % Normal 0-[address] [facility] Comment on above: Performed By: #### L 100.0100, L300.4310, L300.3900, M200.1000, L503.6005 ####[facility] [address] [place], [address] Erythrocyte distribution width (RBC) [Ratio] 13.1 % Normal 11.6-14.[address] [facility] Comment on above: Performed By: #### L 100.0100, L300.4310, L300.3900, M200.1000, L503.6005 ####[facility] [address] [place], [address] Hematocrit (Bld) [Volume fraction] 41.2 % Normal 40-[address] [facility] Comment on above: Performed By: #### L 100.0100, L300.4310, L300.3900, M200.1000, L503.6005 ####[facility] [address] [place], [address] Hemoglobin (Bld) [Mass/Vol] 13.8 g/dL Normal 13.0-16.[address] [facility] Comment on above: Performed By: #### L 100.0100, L300.4310, L300.3900, M200.1000, L503.6005 ####[facility] [address] [place], [address] IG% 0.500 Normal 0.0-0.[address] [facility] Comment on above: Result Comment: IG% - Immature Granulocytes (promyelocytes, myelocytes andmetamyelocytes) > 1% indicates that a LEFT SHIFT is Present. Performed By: #### L 100.0100, L300.4310, L300.3900, M200.1000, L503.6005 ####[facility] [address] [place], [address] Lymphocytes/100 WBC (Bld) 4.8 % Low 19-[address] [facility] Comment on above: Performed By: #### L 100.0100, L300.4310, L300.3900, M200.1000, L503.6005 ####[facility] [address] [place], [address] MCH (RBC) [Entitic mass] 31.5 pg Normal 27.0-32.[address] [facility] Comment on above: Performed By: #### L 100.0100, L300.4310, L300.3900, M200.1000, L503.6005 ####[facility] [address] [place], [address] MCHC (RBC) [Mass/Vol] 33.5 g/dL Normal 32-36 [facility] Comment on above: Performed By: #### L 100.0100, L300.4310, L300.3900, M200.1000, L503.6005 ####[facility] [address] [place], [address] MCV (RBC) [Entitic vol] 94.1 fL High 80-[address] [facility] Comment on above: Performed By: #### L 100.0100, L300.4310, L300.3900, M200.1000, L503.6005 ####[facility] [address] [place], [address] Monocytes/100 WBC (Bld) 5.8 % Normal 0-[address] [facility] Comment on above: Performed By: #### L 100.0100, L300.4310, L300.3900, M200.1000, L503.6005 ####[facility] [address] [place], [address] Neutrophils/100 WBC (Bld) 88.6 % High 47-[address] [facility] Comment on above: Performed By: #### L 100.0100, L300.4310, L300.3900, M200.1000, L503.6005 ####[facility] [address] [place], [address] Nucleated RBC (Bld) [#/Vol] 0 10*3/uL Normal 0-[address] [facility] Comment on above: Performed By: #### L 100.0100, L300.4310, L300.3900, M200.1000, L503.6005 ####[facility] [address] [place], [address] Platelet mean volume (Bld) [Entitic vol] 9.8 fL Normal 6.2-12.[address] [facility] Comment on above: Performed By: #### L 100.0100, L300.4310, L300.3900, M200.1000, L503.6005 ####[facility] [address] [place], [address] Platelets (Bld) [#/Vol] 197 10*3/uL Normal 150-[address] [facility] Comment on above: Performed By: #### L 100.0100, L300.4310, L300.3900, M200.1000, L503.6005 ####[facility] [address] [place], [address] RBC (Bld) [#/Vol] 4.38 10*6/uL Low 4.6-6.2 [facility] Comment on above: Performed By: #### L 100.0100, L300.4310, L300.3900, M200.1000, L503.6005 ####[facility] [address] [place], [address] RDW SD 44.9 fl High 35.1-43.[address] [facility] Comment on above: Performed By: #### L 100.0100, L300.4310, L300.3900, M200.1000, L503.6005 ####[facility] [address] [place], [place], [address] WBC (Bld) [#/Vol] 10.6 10*3/uL Normal 4.4-11.0 [facility] Comment on above: Performed By: #### L 100.0100, L300.4310, L300.3900, M200.1000, L503.6005 ####[facility] [address] [place], [place], [address] [facility]NPNon [facility]2024 [facility] FRAN PAREKH ([id number]) 1945 M Date Time Provider Department 10/22/24 [facility] During your visit today, we recorded the following information about you: Kulwinder Whelan, RN 10/22/2024 8:43 AM Signed Marquita from [facility] patient floor calling as she states pt was admitted there this morning for chlangitis, lactic acidosis, nausea AND vomiting and ROSSANA. Asking for a copy of pt's current med list to be faxed to them at [phone]. Med list copied and faxed as requested. Allergies As of Date: 10/22/2024 Noted Allergy Reaction NORVASC (AMLODIPINE BESYLATE) 09/14/2016 7 - Swelling Comments: pedal edema VENOM-WASP 01/14/2005 7 - Swelling ZITHROMAX (AZITHROMYCIN) 01/14/2005 9 - Itching Date Reviewed: 10/08/2024 Reviewed by: Eunice Bruce LPN - Fully Assessed Reason for Visit: request for updated med list [Other] Patient Update [1234] Cmt: Admitted to [facility] Prescriptions as of 10/22/2024 - apixaban (ELIQUIS) [...] mouth daily at bedtime. - CPAP AutoPAP [id number]. Mask per preference, tubing, filters, humidity. Lif[employer] Supplies. Dx: G47.33. Fax 30 day compliance report to [phone]. - CPAP Please provide mask fitting. 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 Carbon dioxide, total [Moles /volume] in Central venous bloodOrdered By: Manuel Alvarez on 10-22-2024 CO2 [Moles/Vol] 23.7 mmol/L 21.0-32.[address] [facility] Chest PA and Lateralon 10-22 Chest PA and Lateral Normal [facility] Chloride assayOrdered By: Tania Alvarez on 10-22-2024 Chloride [Moles/Vol] 104 mmol/L 98-108 [facility] Comprehensive Metabolic Prof ilon 10-22-2024 Albumin [Mass/Vol] 3.4 g/dL Normal 3.4-4.8 [facility] Comment on above: Performed By: #### L 501.2450, L500.4050 ####[facility] [address] [place], [address] Albumin/Globulin [Mass ratio] 1.2 {ratio} Normal 0.9-2.[address] [facility] Comment on above: Performed By: #### L 501.2450, L500.4050 ####[facility] [address] [place], [address] ALK PHOS 93 U/L Normal 40-[address] [facility] Comment on above: Performed By: #### L 501.2450, L500.4050 ####[facility] [address] [place], [address] ALT [Catalytic activity/Vol] 33 U/L Normal <=[address] [facility] Comment on above: Performed By: #### L 501.2450, L500.4050 ####[facility] [address] [place], [address] AST [Catalytic activity/Vol] 28 U/L Normal <=[address] [facility] Comment on above: Performed By: #### L 501.2450, L500.4050 ####[facility] [address] [place], [address] Bilirubin [Mass/Vol] 0.75 mg/dL Normal 0.00-1.30 [facility] Comment on above: Performed By: #### L 501.2450, L500.4050 ####[facility] [address] [place], [address] BUN/CRE 15.2 RATIO Normal 10-[address] [facility] Comment on above: Performed By: #### L 501.2450, L500.4050 ####[facility] [address] [place], [address] Calcium [Mass/Vol] 8.5 mg/dL Normal 7.6-11.0 [facility] Comment on above: Performed By: #### L 501.2450, L500.4050 ####[facility] [address] [place], [address] Chloride [Moles/Vol] 104 mmol/L Normal 98-108 [facility] Comment on above: Performed By: #### L 501.2450, L500.4050 ####[facility] [address] [place], [address] CO2 [Moles/Vol] 23.7 mmol/L Normal 21.0-32.[address] [facility] Comment on above: Performed By: #### L 501.2450, L500.4050 ####[facility] [address] [place], [address] Creatinine [Mass/Vol] 1.86 mg/dL High 0.70-1.20 [facility] Comment on above: Performed By: #### L 501.2450, L500.4050 ####[facility] [address] [place], [address] ECRCL 43.92 ml/min Low 50-[address] [facility] Comment on above: Performed By: #### L 501.2450, L500.4050 ####[facility] [address] [place], [address] GAP 13 Normal 5-[address] [facility] Comment on above: Performed By: #### L 501.2450, L500.4050 ####[facility] [address] [place], [address] GFR/1.73 sq M.predicted among non-blacks MDRD (S/P/Bld) [Vol rate/Area] 36 mL/min/{1.73_m2} Low >[address] [facility] Comment on above: Result Comment: mL/m in/1.73m2 CKD-EPI Creatinine Equation (2020) Performed By: #### L 501.2450, L500.4050 ####[facility] [address] [place], [address] Globulin (S) [Mass/Vol] 2.8 g/dL Normal 2.2-4.[address] [facility] Comment on above: Performed By: #### L 501.2450, L500.4050 ####[facility] [address] [place], [address] Glucose [Mass/Vol] 189 mg/dL High 70-99 [facility] Comment on above: Performed By: #### L 501.2450, L500.4050 ####[facility] [address] [place], [address] Potassium [Moles/Vol] 4.0 mmol/L Normal 3.3-5.1 [facility] Comment on above: Performed By: #### L 501.2450, L500.4050 ####[facility] [address] [place], [address] Sodium [Moles/Vol] 140 mmol/L Normal 133-145 [facility] Comment on above: Performed By: #### L 501.2450, L500.4050 ####[facility] [address] [place], [address] T PROT 6.2 g/dL Normal 5.9-8.[address] [facility] Comment on above: Performed By: #### L 501.2450, L500.4050 ####[facility] [address] [place], [address] Urea nitrogen [Mass/Vol] 28 mg/dL High 4-[address] [facility] Comment on above: Performed By: #### L 501.2450, L500.4050 ####[facility] [address] [place], [address] Electrocardiogram reportOrde red By: Isaias Velez on 10-22-2024 EKG study [facility] [address] [place] [address] 12 Lead EKG 10/21/24 2344 MR#: [id number] Acct: [id number] Name: FRAN PAREKH Rep #:[id number] : 1945 79 From: Isaias Velez MD Attending Dr: Dr. Marleny Tena, DO Status: ADM IN Ordering Dr: Manuel Alvarez MD Date: 10/22/24 Location: [facility] Sex: M C Admitted: 10/22/24 Test Reason [...] ST abnormality Abnormal ECG Confirmed by ISAIAS VELEZ MD ([id number]), rewrite editor SEAN DALTON ([id number]) on 10/22/2024 11:29:07 AM Referred By: BB Confirmed By: ISAIAS VELEZ MD 10/22/24 112 Date _ Isaias Velez MD CC: Dr. Manuel Alvarez MD; Dr. Salvador Del Rosario MD; Dr. Marleny Tena DO~ Signed [facility] Work Phone: Emergency Department Summary on 10-22-2024 Emergency Department Summary Normal [facility] Eosinophil percentageOrdered By: Manuel Alvarez on 10-22-2024 Eosinophils/100 WBC (Bld) 0.1 % 0-[address] [facility] Erythrocyte distribution wid th ratioOrdered By: Manuel Alvarez on 10-22-2024 Erythrocyte distribution width (RBC) [Ratio] 13.1 % 11.6-14.[address] [facility] Erythrocyte distribution wid th standard deviationOrdered By: Manuel Alvarez on 10-22-2024 Erythrocyte distribution width (RBC) [Ratio] 44.9 fl High 35.1-43.[address] [facility] Glomerular filtration rate ( GFR) estimation/1.73 sq m using serum, plasma, or whole bOrdered By: Manuel Alvarez on 10-22-2024 GFR/1.73 sq M.predicted among non-blacks MDRD (S/P/Bld) [Vol rate/Area] 36 mL/min/{1.73_m2} Low >[address] [facility] Comment on above: mL/min/1.73m2 CKD-EP I Creatinine Equation (2020) H AND P Exam - [facility] 10-22-2024 H&P Exam - Hospitalist Normal [facility] Hematocrit Auto (Bld) [Volum e fraction]Ordered By: Manuel Alvarez on 10-22-2024 Hematocrit (Bld) [Volume fraction] 41.2 % 40-[address] [facility] Hemoglobin measurementOrdere d By: Manuel Alvarez on 10-22-2024 Hemoglobin (Bld) [Mass/Vol] 13.8 g/dL 13.0-16.[address] [facility] Immature granulocytes/100 WB C Auto (Bld)Ordered By: Manuel Alvarez on 10-22-2024 Immature granulocytes/100 WBC (Bld) 0.500 % 0.0-0.[address] [facility] Comment on above: IG% - Immature Granu locytes (promyelocytes, myelocytes and metamyelocytes) > 1% indicates that a LEFT SHIFT is Present. International normalized rat io (INR) calculationOrdered By: Manuel Alvarez on 10-22-2024 INR Coag (Bld) [Relative time] 1.2 {INR} [facility] Ketones Test strip Ql (U)Ord ered By: Manuel Alvarez on 10-22-2024 Ketones Ql (U) Negative Negative [facility] LDL calc ser/plasOrdered By: Werner Shin on 10-22-2024 Cholesterol in LDL [Mass/Vol] 41 mg/dL [facility] Comment on above: Xonwzokclm=938-340 m g/dL & Higher Nepz=476 mg/dL or greater Laboratory - Chemistry and C hemistry - challengeOrdered By: Manuel Alvarez on 10-22-2024 AST [Catalytic activity/Vol] 28 U/L <[address] [facility] Lactic Acidon 10-22-2024 Lactate [Moles/Vol] 1.7 mmol/L Normal 0.0-2.0 [facility] Comment on above: Performed By: #### L 503.6002 ####[facility] [address] [place], [address] Lactate [Moles/Vol] 2.3 mmol/L Invalid Interpretation Code 0.0-2.[address] [facility] Comment on above: Order Comment: Y Result Comment: Crit ical Result(s) Called at: 0111 by:??ROQUE HAVEN TO DUARTEFF Results read back by same. Performed By: #### L 100.0100, L300.4310, L300.3900, M200.1000, L503.6005 ####[facility] [address] [place], [place], [address] Lactic acid measurementOrder ed By: Manuel Alvarez on 10-22-2024 Lactate [Moles/Vol] 1.7 mmol/L 0.0-2.0 [facility] Lipaseon 10-22-2024 Lipase [Catalytic activity/Vol] 35 U/L Normal 13-[address] [facility] Comment on above: Result Comment: Plea se note:LIPASE revised reference range effective 22.New Lipase methodology. Expected to produce lower valuesthan the previous assay method.NEW Reference Range: 13 - 75 U/L Performed By: #### L 501.2450, L500.4050 ####[facility] [address] [place], [address] Lipase measurementOrdered By : Manuel Alvarez on 10-22-2024 Lipase [Catalytic activity/Vol] 35 U/L 13-[address] [facility] Comment on above: Please note:LIPASE r evised reference range effective 22. New Lipase methodology. Expected to produce lower values than the previous assay method. NEW Reference Range: 13 - 75 U/L Lipid Profileon 10-22-2024 CHOL:HDL 4.[address] [facility] Comment on above: Performed By: #### L 500.4100 ####[facility] [address] [place], [address] Cholesterol [Mass/Vol] 121 mg/dL Normal <=200 [facility] Comment on above: Result Comment: Chol esterol level, Desirable <200 mg/dLBorderline high cholesterol 200-239 mg/dLHigh cholesterol >=240 mg/dLRecommendations of the NCEP Adult Treatment Panel for thefollowing risk-cutoff thresholds for the [place] Americanpulation. Performed By: #### L 500.4100 ####[facility] [address] [place], [place], [address] Cholesterol in HDL [Mass/Vol] 26 mg/dL Low [facility] Comment on above: Result Comment: Isabelle onal Cholesterol Education Program (NCEP) guidelines:<40 mg/dL: Low HDL-cholesterol (major risk factor for CHD)>= 60 mg/dL: High HDL-cholesterol (negative risk factor forCHD)HDL-cholesterol is affected by a number of factors, e.g.smoking, exercise, hormones, sex and age. Performed By: #### L 500.4100 ####[facility] [address] [place], [address] Cholesterol in LDL [Mass/Vol] 41 mg/dL Normal [facility] Comment on above: Result Comment: Bord vstjhy=297-923 mg/dL Higher Pjfq=368 mg/dL or greater Performed By: #### L 500.4100 ####[facility] [address] [place], [address] Cholesterol in VLDL [Mass/Vol] 54 mg/dL High 5-[address] [facility] Comment on above: Performed By: #### L 500.4100 ####[facility] [address] [place], [address] Triglyceride [Mass/Vol] 269 mg/dL High [facility] Comment on above: Result Comment: The drugs N-Acetylcysteine and Metamizole may falselydepress this assay.Normal range: <150 mg/dLBorderline High: 150-199 mg/dLHigh: 200-499 mg/dLVery High: >500 mg/dL Performed By: #### L 500.4100 ####[facility] [address] [place], [address] MCV (mean corpuscular volume ) determinationOrdered By: Manuel Alvarez on 10-22-2024 MCV (RBC) [Entitic vol] 94.1 fL High 80-[address] [facility] MR/CON.PCM.GIon 10-22-2024 MR/CON.PCM.GI Normal [facility] MRCP Abdomen without Contras ton 10-22-2024 MRCP Abdomen without Contrast Normal [facility] Magnesiumon 10-22-2024 Magnesium [Mass/Vol] 1.5 mg/dL Normal 1.5-2.2 [facility] Comment on above: Performed By: #### L 501.9520, L501.5200 ####[facility] [address] [place], [place], [address] Magnesium measurement (mass/ volume)Ordered By: Werner Shin on 10-22-2024 Magnesium (Unsp spec) [Mass/Vol] 1.5 mg/dL 1.5-2.[address] [facility] Magnetic resonance imaging r eportOrdered By: Rinku Rangel on 10-22-2024 Study report [facility] [address] [place], [place] [address] MRCP Abdomen without Contrast MR#: [id number] Acct: [id number] Name: FRAN PAREKH Rep #: [id number] : 1945 M 79 From: Barney Rangel MD PCP: Dr. Salvador Del Rosario MD Status: ADM IN Study:MRCP Abdomen without Contrast Date of E xam: 10/22/24 Exam# [id number] Ordering Dr: Werner Hernández DO PROCEDURE: MRCP [...] Rosario MD; Dr. Werner Nunn, DO ~ Needle Maker: Signed [facility] Mean corpuscular hemoglobin (MCH) determinationOrdered By: Manuel Alvarez on 10-22-2024 MCH (RBC) [Entitic mass] 31.5 pg 27.0-32.[address] [facility] Mean corpuscular hemoglobin concentration (MCHC) determinationOrdered By: Manuel Alvarez on 10-22-2024 MCHC (RBC) [Mass/Vol] 33.5 g/dL 32-36 [facility] Mean platelet volume determi nationOrdered By: Manuel Alvarez on 10-22-2024 Platelet mean volume (Bld) [Entitic vol] 9.8 fL 6.2-12.[address] [facility] Microscopic analysis of urin e for red blood cells (RBC)Ordered By: Manuel Alvarez on 10-22-2024 Microscopic analysis of urine for red blood cells (RBC) 0 SEEN /hpf 0-[address] [facility] Monocyte percentageOrdered B y: Manuel Alvarez on 10-22-2024 Monocytes/100 WBC (Bld) 5.8 % 0-[address] [facility] Mucus LM Ql (Urine sed)Order ed By: Manuel Alvarez on 10-22-2024 Mucus Ql (Urine sed) 0 SEEN /hpf [facility] Neutrophil percentageOrdered By: Manuel Alvarez on 10-22-2024 Neutrophils/100 WBC (Bld) 88.6 % High 47-[address] [facility] Nitrite Test strip Ql (U)Ord ered By: Manuel Alvarez on 10-22-2024 Nitrite Ql (U) Negative Negative [facility] Nucleated red blood cell per centageOrdered By: Manuel Alvarez on 10-22-2024 Nucleated RBC/100 WBC (Bld) [Ratio] 0 % 0-[address] [facility] Partial Thromboplast Timeon 10-22-2024 aPTT Coag (Bld) [Time] 27.9 s Normal 24.1-36.2 [facility] Comment on above: Performed By: #### L 100.0100, L300.4310, L300.3900, M200.1000, L503.6005 ####[facility] [address] [place], [address] Platelet countOrdered By: Tania Alvarez on 10-22-2024 Platelets (Bld) [#/Vol] 197 10*3/uL 150-[address] [facility] Potassium measurement (mass/ volume)Ordered By: Manuelsuzie Alvarez on 10-22-2024 Potassium (Unsp spec) [Mass/Vol] 4.0 mmol/L 3.3-5.[address] [facility] Protein Test strip Ql (U)Ord ered By: Manuel Alvarez on 10-22-2024 Protein Ql (U) 30 mg/dl High Negative [facility] Prothrombin Time w/INRon INR Coag (PPP) [Relative time] 1.2 {INR} Normal [facility] Comment on above: Performed By: #### L 100.0100, L300.4310, L300.3900, M200.1000, L503.6005 ####[facility] [address] [place], [address] PT Coag (PPP) [Time] 15.3 s High 11.7-14.9 [facility] Comment on above: Performed By: #### L 100.0100, L300.4310, L300.3900, M200.1000, L503.6005 ####[facility] [address] [place], [address] Prothrombin timeOrdered By: Manuel Alvarez on 10-22-2024 PT Coag (PPP) [Time] 15.3 s High 11.7-14.9 [facility] RBC Auto (Bld) [#/Vol]Ordere d By: Manuel Alvarez on 10-22-2024 RBC (Bld) [#/Vol] 4.38 10*6/uL Low 4.6-6.2 [facility] Screening total cholesterol/ high density lipoprotein (HDL) cholesterol ratioOrdered By: Werner Shin on 10-22-2024 Cholesterol.total/Chol esterol in HDL [Mass ratio] 4.58 {ratio} [facility] Serum creatinine measurement (mass/volume)Ordered By: Manuel Alvarez on 10-22-2024 Creatinine [Mass/Vol] 1.86 mg/dL High 0.70-1.20 [facility] Serum globulin measurementOr dered By: Manuel Alvarez on 10-22-2024 Globulin (S) [Mass/Vol] 2.8 g/dL 2.2-4.[address] [facility] Serum glucose measurement (m ass/volume)Ordered By: Manuel Alvarez on 10-22-2024 Glucose [Mass/Vol] 189 mg/dL High 70-99 [facility] Serum or plasma alanine wilde otransferase (ALT) measurementOrdered By: Manuel Alvarez on 10-22-2024 ALT [Catalytic activity/Vol] 33 U/L <[address] [facility] Serum or plasma albumin anson urement (mass/volume)Ordered By: Manuel Alvarez on 10-22-2024 Albumin [Mass/Vol] 3.4 g/dL 3.4-4.8 [facility] Serum or plasma albumin/glob ulin mass ratioOrdered By: Manuel Alvarez on 10-22-2024 Albumin/Globulin [Mass ratio] 1.2 {ratio} 0.9-2.[address] [facility] Serum or plasma alkaline rui sphatase measurementOrdered By: Manuel Alvarez on 10-22-2024 ALP [Catalytic activity/Vol] 93 U/L 40-[address] [facility] Serum or plasma calcium anson urement (mass/volume)Ordered By: Manuel Alvarez on 10-22-2024 Calcium [Mass/Vol] 8.5 mg/dL 7.6-11.0 [facility] Serum or plasma cholesterol in HDL measurement (mass/volume)Ordered By: Werner Shin on 10-22-2024 Cholesterol in HDL [Mass/Vol] 26 mg/dL Low >[address] [facility] Comment on above: National Cholesterol Education Program [...] the following risk-cutoff thresholds for the [place]. Serum or plasma urea nitroge n measurement (mass/volume)Ordered By: Manuel Alvarez on 10-22-2024 Urea nitrogen [Mass/Vol] 28 mg/dL High 4-[address] [facility] Sodium levelOrdered By: Rupert Alvarez on 10-22-2024 Sodium [Moles/Vol] 140 mmol/L 133-145 [facility] Squamous epithelial cells de tection in urine sediment by light microscopyOrdered By: Manuel Alvarez on 10-22-2024 Epithelial cells.squamous LM Ql (Urine sed) 0-5 SEEN /hpf 0-[address] [facility] TSH DL <= 0.005 mIU/L QnOrde red By: Werner Shin on 10-22-2024 TSH Qn 1.840 uIU/mL 0.300-4.[address] [facility] Thyroid Stim Hormone (TSH)on 10-22-2024 TSH 1.840 uIU/mL Normal 0.300-4.[address] [facility] Comment on above: Performed By: #### L 501.9520, L501.5200 ####[facility] [address] [place], [place], [address] Total proteinOrdered By: Tata Alvarez on 06-24-2025 Protein [Mass/Vol] 6.2 g/dL 5.9-8.4 [facility] Triglycerides measurementOrd ered By: Werner Shin on 10-22-2024 Triglyceride [Mass/Vol] 269 mg/dL High <[address] [facility] Comment on above: The drugs N-Acetylcy steine and Metamizole may falsely depress this assay. Normal range: <150 mg/dLBorderline High: 150-199 mg/dLHigh: 200-499 mg/dLVery High: >500 mg/dL Urinalysis, Completeon 10-22 EPI,SQUAMOUS 0-5 SEEN Normal 0-[address] [facility] Comment on above: Order Comment: CLEAN CATCH Performed By: #### L 400.0001, M1.2199 ####[facility] [address] [place], [address] BACTERIA 0 SEEN Normal None Seen [facility] Comment on above: Order Comment: CLEAN CATCH Performed By: #### L 400.0001, M1.2199 ####[facility] [address] [place], [address] Mucus Ql (Urine sed) 0 SEEN Normal [facility] Comment on above: Order Comment: CLEAN CATCH Performed By: #### L 400.0001, M1.0 ####[facility] [address] [place], [address] RBC 0 SEEN Normal 0-[address] [facility] Comment on above: Order Comment: CLEAN CATCH Performed By: #### L 400.0001, M1.2199 ####[facility] [address] [place], [address] WBC 0 SEEN Normal 0-[address] [facility] Comment on above: Order Comment: CLEAN CATCH Performed By: #### L 400.0001, M1.2199 ####[facility] [address] [place], [address] Urine clarityOrdered By: Tata Alvarez on 10-22-2024 Clarity (U) Clear Clear [facility] Urine color determinationOrd ered By: Manuel Alvarez on 10-22-2024 Color (U) Yellow Yellow [facility] Urine cultureOrdered By: Tata Alvarez on 10-22-2024 Bacteria identified Cx Nom (U) Positive Abnormal [facility] Urine glucose detectionOrder ed By: Manuel Alvarez on 10-22-2024 Glucose Ql (U) Normal mg/dl Normal [facility] Urine leukocyte esterase det ection by dipstickOrdered By: Manuel Alvarez on 10-22-2024 Leukocyte esterase Test strip Ql (U) Negative Negative [facility] Urine pHOrdered By: Manuel Alvarez on 10-22-2024 pH (U) 6.5 [pH] 5.0 - 8.[address] [facility] Urine sediment bacteria coun t by microscopy (number/high power field)Ordered By: Manuel Alvarez on 10-22-2024 Bacteria LM.HPF (Urine sed) [#/Area] 0 /[HPF] None Seen [facility] Urine specific gravity measu rementOrdered By: Manuel Alvarez on 10-22-2024 Specific gravity (U) [Rel density] 1.010 1.002-1.[address] [facility] Urine urobilinogen measureme ntOrdered By: Manuel Alvarez on 10-22-2024 Urobilinogen Ql (U) 4 mg/dl High Normal [facility] White blood cell (WBC) count Ordered By: Manuel Alvarez on 10-22-2024 WBC (Bld) [#/Vol] 10.6 10*3/uL 4.4-11.0 [facility] White blood cell countOrdere d By: Manuel Alvarez on 10-22-2024 White blood cell count 0 SEEN /hpf 0-5 [facility] CNOVon 10-08-2024 CNOV Office Visit (FAMPWS ) -- FRAN PAREKH ([id number]) 1945 M Date Time Provider Department 10/08/24 9:40 AM MARILIA OROZCO During your visit today, we recorded the following information about you: Pulse Respiration Blood pressure Weight 58/minute 18/minute 118/76 132.9 kg Marilia Orozco APRN.COOKER SULFITE 10/08/2024 9:54 AM Signed 10/08/2024 Patient presents with: Pain: Left wrist pain, fell about a month ago and caught himself with his hands. Recording using [employer] software for draft documentation of the visit was discussed with the patient/authorized senior patient account representative; all questions welcomed and answered. Patient/authorized senior patient account representative agreed to proceed SUBJECTIVE: This is [...] of skin of nose Dr. Chowdary in [place] Stage 3a chronic kidney disease (HCC) Venous [...] by mouth daily at bedtime. CPAP AutoPAP [id number]. Mask per preference, tubing, filters, humidity. [employer]. Dx: G47.33. Fax 30 day compliance report to [phone]. CPAP Please provide mask fitting. Pt with [...] No deform (more content not included)... Normal [facility] No Panel Informationon 10-08 IMPRESSION: 1. No radiographic evidence of acute osseous injury. 2. Multifocal osteoarthritis as described. Needle Maker: PSCB Transcribe Date/Time: Oct 08 2024 11:26A Dictated by : FAUSTINO STOCKTON MD This examination was interpreted and the report reviewed and electronically signed by: FAUSTINO STOCKTON MD on Oct 08 2024 11:29AM [facility] DIVISION OF RADIOLOGY Radiology Study observation (narrative) [facility] No Panel InformationOrdered By: Ccf Provider on 10-08-2024 [facility] TSH SerPl-aCncon 10-08-2024 TSH Qn 2.310 m[IU]/L Normal 0.270-4.20 0 [facility] Comment on above: Order Comment: Speci men Type: BLOOD SPECIMENOrdering Facility: [facility] Address: [address] [place] [address] Performed By: #### 3 016-3 ####[facility] LABCLIA [id number] [place] [address] [place] XR HAND 3V [...] osseous injury. 2. Multifocal osteoarthritis as described. Needle Maker: WILNER Transcribe Date/Time: Oct 08 2024 11:26A Dictated by : FAUSTINO STOCKTON MD This examination was interpreted and the report reviewed and electronically signed by: FAUSTINO STOCKTON MD on Oct 08 2024 11:29AM EST [id number] Normal [facility] XR Hand - left PA and [...] fourth proximal phalanx. DIVISION OF RADIOLOGY Provider, [facility] - 10/08/2024 * * *Final [...] osseous injury. 2. Multifocal osteoarthritis as described. Needle Maker: [facility] Transcribe Date/Time: Oct 08 2024 11:26A Dictated by : FAUSTINO STOCKTON MD This examination was interpreted and the report reviewed and electronically signed by: FAUSTINO STOCKTON MD on Oct 08 2024 11:29AM [facility] XR WRIST 3V PA/LAT/OBL LTon [...] osseous injury. 2. Multifocal osteoarthritis as described. Needle Maker: WILNER Transcribe Date/Time: Oct 08 2024 11:26A Dictated by : FAUSTINO STOCKTON MD This examination was interpreted and the report reviewed and electronically signed by: FAUSTINO STOCKTON MD on Oct 08 2024 11:29AM EST [id number] Normal [facility] XR Wrist - left PA and [...] fourth proximal phalanx. DIVISION OF RADIOLOGY Provider, [facility] - 10/08/2024 * * *Final Report* [...] osseous injury. 2. Multifocal osteoarthritis as described. Needle Maker: PSCB Transcribe Date/Time: Oct 08 2024 11:26A Dictated by : FAUSTINO STOCKTON MD This examination was interpreted and the report reviewed and electronically signed by: FAUSTINO STOCKTON MD on Oct 08 2024 11:29AM [facility] ERCP Biliary/Pancreason ERCP Biliary/Pancreas Normal [facility] ERCP Reporton 10-07-2024 ERCP Report Normal [facility] MR/POSTOP.ANEon 10-07-2024 MR/POSTOP.ANE Normal [facility] MR/YXYCGXWD1hj 10-07-2024 MR/POSTOPAN2 Normal [facility] O.R. Fluoro for C-Dylon - O.R. Fluoro for C-Arm Normal [facility] Surgery Specimen Level Marcela 10-07-2024 Surgery Specimen Level IV Normal [facility] Comment on above: Performed By: #### P SUIV ####[place] [address], [address] Frederic 09-17-2024 [facility] Telephone (FAMPWS) -- FRAN PAREKH ([id number]) 1945 M Date Time Provider Department 09/17/24 AGNES DEL ROSARIO [facility] During your visit today, we recorded the following information about you: Agustín Monroy RN 09/17/2024 11:34 AM Signed Jeny with [facility] calls to request a copy of patient's most recent HGBA1C. Faxed results from 08/15/2024 to [phone] per request. CHAD English Stephanie, RN 09/17/2024 11:43 AM Signed Jeny with [facility] calls to request a copy of patient's most recent office visit notes. Faxed results from 08/15/2024 to [phone] per request. Carli Bowen RN Allergies As [...] mouth daily at bedtime. - CPAP AutoPAP [id number]. Mask per preference, tubing, filters, humidity. [employer]. Dx: G47.33. Fax 30 day compliance report to [phone]. - CPAP Please provide mask fitting. Pt [...] 03/25/2009 Open fracture of distal phalangeal tuft [[id number]*08/31/2011 05/09/2014 Internal derangement of right knee [M23.91] [...] Status:Closed by AGUSTÍN MONROY on 09/17/24 Normal [facility] L/S Spine Min 4 Viewson 08-30 L/S Spine Min 4 Views Normal [facility] Orthopedic Visit Reporton Orthopedic Visit Report Normal [facility] Abdomen/Pelvis W IV Cont ONL Yon 08-31-2024 Abdomen/Pelvis W IV Cont ONLY Normal [facility] Absolute lymphocyte countOrd ered By: Isaias Trivedi on 08-31-2024 Lymphocytes Auto (Unsp spec) [#/Vol] 2.13 10*3/uL 0.83-4.[address] [facility] Absolute neutrophil countOrd ered By: Isaias Trivedi on 08-31-2024 Neutrophils (Bld) [#/Vol] 9.2 10*3/uL High 2.0-7.[address] [facility] Anion gap in Serum or Plasma Ordered By: Isaias Trivedi on 08-31-2024 Anion gap [Moles/Vol] 12 mmol/L 5- [facility] Automated lymphocyte count a s percentage of total leukocytesOrdered By: Isaias Trivedi on 08-31-2024 Lymphocytes/100 WBC Auto (Unsp spec) 17.0 % Low 19-[address] [facility] BUN/creatinine ratioOrdered By: Isaias Trivedi on 08-31-2024 Urea nitrogen/Creatinine [Mass ratio] 14.0 mg/mg 10- [facility] Basophil percentageOrdered B y: Isaias Trivedi on 08-31-2024 Basophils/100 WBC (Bld) 0.5 % 0-[address] [facility] Bilirubin Test strip Ql (U)O rdered By: Isaias Trivedi on 08-31-2024 Bilirubin Ql (U) Negative Negative [facility] Bilirubin, totalOrdered By: Isaias Trivedi on 08-31-2024 Bilirubin [Mass/Vol] 0.80 mg/dL 0.00-1.30 [facility] CBC W/Diff, Automatedon Absolute Lymph 2.13 X10 3/uL Normal 0.83-4.[address] [facility] Comment on above: Performed By: #### L 500.4050, L100.0100 ####[facility] [address] [place], [address] Absolute Neut 9.2 X10 3/uL High 2.0-7.[address] [facility] Comment on above: Performed By: #### L 500.4050, L100.0100 ####[facility] [address] [place], [address] Basophils/100 WBC (Bld) 0.5 % Normal 0-[address] [facility] Comment on above: Performed By: #### L 500.4050, L100.0100 ####[facility] [address] [place], [address] Eosinophils/100 WBC (Bld) 1.3 % Normal 0-[address] [facility] Comment on above: Performed By: #### L 500.4050, L100.0100 ####[facility] [address] [place], [address] Erythrocyte distribution width (RBC) [Ratio] 13.3 % Normal 11.6-14.[address] [facility] Comment on above: Performed By: #### L 500.4050, L100.0100 ####[facility] [address] [place], [address] Hematocrit (Bld) [Volume fraction] 46.1 % Normal 40-[address] [facility] Comment on above: Performed By: #### L 500.4050, L100.0100 ####[facility] [address] [place], [address] Hemoglobin (Bld) [Mass/Vol] 15.9 g/dL Normal 13.0-16.[address] [facility] Comment on above: Performed By: #### L 500.4050, L100.0100 ####[facility] [address] [place], [address] IG% 0.400 Normal 0.0-0.[address] [facility] Comment on above: Result Comment: IG% - Immature Granulocytes (promyelocytes, myelocytes andmetamyelocytes) > 1% indicates that a LEFT SHIFT is Present. Performed By: #### L 500.4050, L100.0100 ####[facility] [address] [place], [address] Lymphocytes/100 WBC (Bld) 17.0 % Low 19-[address] [facility] Comment on above: Performed By: #### L 500.4050, L100.0100 ####[facility] [address] [place], [address] MCH (RBC) [Entitic mass] 32.1 pg High 27.0-32.[address] [facility] Comment on above: Performed By: #### L 500.4050, L100.0100 ####[facility] [address] [place], [address] MCHC (RBC) [Mass/Vol] 34.5 g/dL Normal 32-36 [facility] Comment on above: Performed By: #### L 500.4050, L100.0100 ####[facility] [address] [place], [address] MCV (RBC) [Entitic vol] 92.9 fL Normal 80-[address] [facility] Comment on above: Performed By: #### L 500.4050, L100.0100 ####[facility] [address] [place], [address] Monocytes/100 WBC (Bld) 7.5 % Normal 0-[address] [facility] Comment on above: Performed By: #### L 500.4050, L100.0100 ####[facility] [address] [place], [address] Neutrophils/100 WBC (Bld) 73.3 % High 47-[address] [facility] Comment on above: Performed By: #### L 500.4050, L100.0100 ####[facility] [address] [place], [address] Nucleated RBC (Bld) [#/Vol] 0 10*3/uL Normal 0-[address] [facility] Comment on above: Performed By: #### L 500.4050, L100.0100 ####[facility] [address] [place], [address] Platelet mean volume (Bld) [Entitic vol] 9.5 fL Normal 6.2-12.[address] [facility] Comment on above: Performed By: #### L 500.4050, L100.0100 ####[facility] [address] [place], [address] Platelets (Bld) [#/Vol] 225 10*3/uL Normal 150-[address] [facility] Comment on above: Performed By: #### L 500.4050, L100.0100 ####[facility] [address] [place], [address] RBC (Bld) [#/Vol] 4.96 10*6/uL Normal 4.6-6.2 [facility] Comment on above: Performed By: #### L 500.4050, L100.0100 ####[facility] [address] [place], [address] RDW SD 45.3 fl High 35.1-43.[address] [facility] Comment on above: Performed By: #### L 500.4050, L100.0100 ####[facility] [address] [place], [address] WBC (Bld) [#/Vol] 12.6 10*3/uL High 4.4-11.0 [facility] Comment on above: Performed By: #### L 500.4050, L100.0100 ####[facility] [address] [place], [address] Elaina 08-31-2024 CN Office Visit (UCWSTR ) -- IGLESIAFRAN Mueller ([id number]) 1945 M Date Time Provider Department 08/31/24 11:00 AM [facility] During your visit today, we recorded the following information about you: Cole Campos MD 08/31/2024 11:11 AM Signed [facility] Triage Note: Patient presents to the [facility] care with complaint of abdominal pain for the last day. He is also experiencing current sciatic pain and taking Cayce. He has been unable to take pain medicine today because of upset stomach and wants to avoid further aggravating abdominal pain. He is concerned he may have constipation but also has history of diverticulitis. He is in apparent discomfort in the waiting room. He was offered the opportunity to have initial evaluation here in the [facility] care with likely referral where [...] mouth daily at bedtime. - CPAP AutoPAP [id number]. Mask per preference, tubing, filters, humidity. [employer]. Dx: G47.33. Fax 30 day compliance report to [phone]. - CPAP Please provide mask fitting. Pt [...] 03/25/2009 Open fracture of distal phalangeal tuft [[id number]*08/31/2011 05/09/2014 Internal derangement of right knee [M23.91] [...] vei*10/23/2023 Acute (more content not included)... Normal [facility] Carbon dioxide, total [Moles /volume] in Central venous bloodOrdered By: Isaias Trivedi on 08-31-2024 CO2 [Moles/Vol] 23.3 mmol/L 21.0-32.[address] [facility] Chloride assayOrdered By: Alexis Trivedi on 08-31-2024 Chloride [Moles/Vol] 104 mmol/L 98-108 [facility] Comprehensive Metabolic Prof ilon 08-31-2024 Albumin [Mass/Vol] 4.0 g/dL Normal 3.4-4.8 [facility] Comment on above: Performed By: #### L 500.4050, L100.0100 ####[facility] [address] [place], [address] Albumin/Globulin [Mass ratio] 1.3 {ratio} Normal 0.9-2.[address] [facility] Comment on above: Performed By: #### L 500.4050, L100.0100 ####[facility] [address] [place], [address] ALK PHOS 86 U/L Normal 40-[address] [facility] Comment on above: Performed By: #### L 500.4050, L100.0100 ####[facility] [address] [place], [address] ALT [Catalytic activity/Vol] 20 U/L Normal <=[address] [facility] Comment on above: Performed By: #### L 500.4050, L100.0100 ####[facility] [address] [place], [address] AST [Catalytic activity/Vol] 31 U/L Normal <=[address] [facility] Comment on above: Result Comment: Hemo lysis present, Results??could be affected.?? Performed By: #### L 500.4050, L100.0100 ####[facility] [address] [place], [address] Bilirubin [Mass/Vol] 0.80 mg/dL Normal 0.00-1.30 [facility] Comment on above: Performed By: #### L 500.4050, L100.0100 ####[facility] [address] [place], [address] BUN/CRE 14.0 RATIO Normal 10-[address] [facility] Comment on above: Performed By: #### L 500.4050, L100.0100 ####[facility] [address] [place], [address] Calcium [Mass/Vol] 9.5 mg/dL Normal 7.6-11.0 [facility] Comment on above: Performed By: #### L 500.4050, L100.0100 ####[facility] [address] [place], [address] Chloride [Moles/Vol] 104 mmol/L Normal 98-108 [facility] Comment on above: Performed By: #### L 500.4050, L100.0100 ####[facility] [address] [place], [address] CO2 [Moles/Vol] 23.3 mmol/L Normal 21.0-32.[address] [facility] Comment on above: Performed By: #### L 500.4050, L100.0100 ####[facility] [address] [place], [address] Creatinine [Mass/Vol] 1.46 mg/dL High 0.70-1.20 [facility] Comment on above: Performed By: #### L 500.4050, L100.0100 ####[facility] [address] [place], [address] ECRCL 57.03 ml/min Normal 50-[address] [facility] Comment on above: Performed By: #### L 500.4050, L100.0100 ####[facility] [address] [place], [address] GAP 12 Normal 5-[address] [facility] Comment on above: Performed By: #### L 500.4050, L100.0100 ####[facility] [address] [place], [address] GFR/1.73 sq M.predicted among non-blacks MDRD (S/P/Bld) [Vol rate/Area] 49 mL/min/{1.73_m2} Low >[address] [facility] Comment on above: Result Comment: mL/m in/1.73m2 CKD-EPI Creatinine Equation (2020) Performed By: #### L 500.4050, L100.0100 ####[facility] [address] [place], [address] Globulin (S) [Mass/Vol] 3.2 g/dL Normal 2.2-4.[address] [facility] Comment on above: Performed By: #### L 500.4050, L100.0100 ####[facility] [address] [place], [address] Glucose [Mass/Vol] 135 mg/dL High 70-99 [facility] Comment on above: Performed By: #### L 500.4050, L100.0100 ####[facility] [address] [place], [address] Potassium [Moles/Vol] 5.0 mmol/L Normal 3.3-5.1 [facility] Comment on above: Result Comment: Hemo lysis present, Results??could be affected.?? Performed By: #### L 500.4050, L100.0100 ####[facility] [address] [place], [address] Sodium [Moles/Vol] 139 mmol/L Normal 133-145 [facility] Comment on above: Performed By: #### L 500.4050, L100.0100 ####[facility] [address] [place], [address] T PROT 7.2 g/dL Normal 5.9-8.[address] [facility] Comment on above: Performed By: #### L 500.4050, L100.0100 ####[facility] [address] [place], [place], [address] Urea nitrogen [Mass/Vol] 21 mg/dL High 4-[address] [facility] Comment on above: Performed By: #### L 500.4050, L100.0100 ####[facility] [address] [place], [place], [address] Emergency Department Summary on 08-31-2024 Emergency Department Summary Normal [facility] Eosinophil percentageOrdered By: Isaias Trivedi on 08-31-2024 Eosinophils/100 WBC (Bld) 1.3 % 0-[address] [facility] Erythrocyte distribution wid th ratioOrdered By: Isaias Trivedi on 08-31-2024 Erythrocyte distribution width (RBC) [Ratio] 13.3 % 11.6-14.[address] [facility] Erythrocyte distribution wid th standard deviationOrdered By: Isaias Trivedi on 08-31-2024 Erythrocyte distribution width (RBC) [Ratio] 45.3 fl High 35.1-43.[address] [facility] Glomerular filtration rate ( GFR) estimation/1.73 sq m using serum, plasma, or whole bOrdered By: Isaias Trivedi on 08-31-2024 GFR/1.73 sq M.predicted among non-blacks MDRD (S/P/Bld) [Vol rate/Area] 49 mL/min/{1.73_m2} Low >[address] [facility] Comment on above: mL/min/1.73m2 CKD-EP I Creatinine Equation (2020) Hematocrit Auto (Bld) [Volum e fraction]Ordered By: Isaias Trivedi on 08-31-2024 Hematocrit (Bld) [Volume fraction] 46.1 % 40-[address] [facility] Hemoglobin measurementOrdere d By: Isaias Trivedi on 08-31-2024 Hemoglobin (Bld) [Mass/Vol] 15.9 g/dL 13.0-16.[address] [facility] Immature granulocytes/100 WB C Auto (Bld)Ordered By: Isaias Trivedi on 08-31-2024 Immature granulocytes/100 WBC (Bld) 0.400 % 0.0-0.[address] [facility] Comment on above: IG% - Immature Granu locytes (promyelocytes, myelocytes and metamyelocytes) > 1% indicates that a LEFT SHIFT is Present. Ketones Test strip Ql (U)Ord ered By: Isaias Trivedi on 08-31-2024 Ketones Ql (U) Negative Negative [facility] Laboratory - Chemistry and C hemistry - challengeOrdered By: Isaias Trivedi on 08-31-2024 AST [Catalytic activity/Vol] 31 U/L <[address] [facility] Comment on above: Hemolysis present, R esults could be affected. MCV (mean corpuscular volume ) determinationOrdered By: Isaias Trivedi on 08-31-2024 MCV (RBC) [Entitic vol] 92.9 fL 80-[address] [facility] Mean corpuscular hemoglobin (MCH) determinationOrdered By: Isaias Trivedi on 08-31-2024 MCH (RBC) [Entitic mass] 32.1 pg High 27.0-32.[address] [facility] Mean corpuscular hemoglobin concentration (MCHC) determinationOrdered By: Isaias Trivedi on 08-31-2024 MCHC (RBC) [Mass/Vol] 34.5 g/dL 32-36 [facility] Mean platelet volume determi nationOrdered By: Isaias Trivedi on 08-31-2024 Platelet mean volume (Bld) [Entitic vol] 9.5 fL 6.2-12.[address] [facility] Microscopic analysis of urin e for red blood cells (RBC)Ordered By: Isaias Trivedi on 08-31-2024 Microscopic analysis of urine for red blood cells (RBC) 0-5 SEEN /hpf 0-[address] [facility] Monocyte percentageOrdered B y: Isaias Trivedi on 08-31-2024 Monocytes/100 WBC (Bld) 7.5 % 0-[address] [facility] Mucus LM Ql (Urine sed)Order ed By: Isaias Trivedi on 08-31-2024 Mucus Ql (Urine sed) 0 SEEN /hpf [facility] Neutrophil percentageOrdered By: Isaias Trivedi on 08-31-2024 Neutrophils/100 WBC (Bld) 73.3 % High 47-[address] [facility] Nitrite Test strip Ql (U)Ord ered By: Isaias Trivedi on 08-31-2024 Nitrite Ql (U) Negative Negative [facility] Nucleated red blood cell per centageOrdered By: Isaias Trivedi on 08-31-2024 Nucleated RBC/100 WBC (Bld) [Ratio] 0 % 0-[address] [facility] Platelet countOrdered By: Alexis Trivedi on 08-31-2024 Platelets (Bld) [#/Vol] 225 10*3/uL 150-[address] [facility] Potassium measurement (mass/ volume)Ordered By: Isaias Trivedi on 08-31-2024 Potassium (Unsp spec) [Mass/Vol] 5.0 mmol/L 3.3-5.[address] [facility] Comment on above: Hemolysis present, R esults could be affected. Protein Test strip Ql (U)Ord ered By: Isaias Trivedi on 08-31-2024 Protein Ql (U) 30 mg/dl High Negative [facility] RBC Auto (Bld) [#/Vol]Ordere d By: Isaias Trivedi on 08-31-2024 RBC (Bld) [#/Vol] 4.96 10*6/uL 4.6-6.2 [facility] Serum creatinine measurement (mass/volume)Ordered By: Isaias Trivedi on 08-31-2024 Creatinine [Mass/Vol] 1.46 mg/dL High 0.70-1.20 [facility] Serum globulin measurementOr dered By: Isaias Trivedi on 08-31-2024 Globulin (S) [Mass/Vol] 3.2 g/dL 2.2-4.[address] [facility] Serum glucose measurement (m ass/volume)Ordered By: Isaias Trivedi on 08-31-2024 Glucose [Mass/Vol] 135 mg/dL High 70-99 [facility] Serum or plasma alanine wilde otransferase (ALT) measurementOrdered By: Isaias Trivedi on 08-31-2024 ALT [Catalytic activity/Vol] 20 U/L <[address] [facility] Serum or plasma albumin anson urement (mass/volume)Ordered By: Isaias Trivedi on 08-31-2024 Albumin [Mass/Vol] 4.0 g/dL 3.4-4.8 [facility] Serum or plasma albumin/glob ulin mass ratioOrdered By: Isaias Trivedi on 08-31-2024 Albumin/Globulin [Mass ratio] 1.3 {ratio} 0.9-2.[address] [facility] Serum or plasma alkaline rui sphatase measurementOrdered By: Isaias Trivedi on 08-31-2024 ALP [Catalytic activity/Vol] 86 U/L 40-[address] [facility] Serum or plasma calcium anson urement (mass/volume)Ordered By: Isaias Trivedi on 08-31-2024 Calcium [Mass/Vol] 9.5 mg/dL 7.6-11.0 [facility] Serum or plasma urea nitroge n measurement (mass/volume)Ordered By: Isaias Trivedi on 08-31-2024 Urea nitrogen [Mass/Vol] 21 mg/dL High 4-[address] [facility] Sodium levelOrdered By: Isaias Trivedi on 08-31-2024 Sodium [Moles/Vol] 139 mmol/L 133-145 [facility] Squamous epithelial cells de tection in urine sediment by light microscopyOrdered By: Isaias Trivedi on 08-31-2024 Epithelial cells.squamous LM Ql (Urine sed) 0 SEEN /hpf 0-[address] [facility] Total proteinOrdered By: Marianne Trivedi on 08-31-2024 Protein [Mass/Vol] 7.2 g/dL 5.9-8.4 [facility] Urinalysis, Completeon 08-31 RBC 0-5 SEEN Normal 0-[address] [facility] Comment on above: Order Comment: KATHERINE REGANOR TO SPECIFY Performed By: #### L 400.0001 ####[facility] [address] [place], [place], [id number] WBC 0-5 SEEN Normal 0-[address] [facility] Comment on above: Order Comment: KATHERINE REGANOR TO SPECIFY Performed By: #### L 400.0001 ####[facility] [address] [place], [address] BACTERIA 0 SEEN Normal None Seen [facility] Comment on above: Order Comment: KATHERINE REGANOR TO SPECIFY Performed By: #### L 400.0001 ####[facility] [address] [place], [address] EPI,SQUAMOUS 0 SEEN Normal 0-[address] [facility] Comment on above: Order Comment: KATHERINE CTOR TO SPECIFY Performed By: #### L 400.0001 ####[facility] [address] [place], [address] Mucus Ql (Urine sed) 0 SEEN Normal [facility] Comment on above: Order Comment: KATHERINE CTOR TO SPECIFY Performed By: #### L 400.0001 ####[facility] [address] [place], [place], [address] Urine clarityOrdered By: Marianne Trivedi on 08-31-2024 Clarity (U) Clear Clear [facility] Urine color determinationOrd ered By: Isaias Trivedi on 08-31-2024 Color (U) Yellow Yellow [facility] Urine glucose detectionOrder ed By: Isaias Trivedi on 08-31-2024 Glucose Ql (U) Normal mg/dl Normal [facility] Urine leukocyte esterase det ection by dipstickOrdered By: Isaias Trivedi on 08-31-2024 Leukocyte esterase Test strip Ql (U) Negative Negative [facility] Urine pHOrdered By: Isaias hinton on 08-31-2024 pH (U) 6.5 [pH] 5.0 - 8.[address] [facility] Urine sediment bacteria coun t by microscopy (number/high power field)Ordered By: Isaias Trivedi on 08-31-2024 Bacteria LM.HPF (Urine sed) [#/Area] 0 /[HPF] None Seen [facility] Urine specific gravity measu rementOrdered By: Isaias Trivedi on 08-31-2024 Specific gravity (U) [Rel density] 1.010 1.002-1.[address] [facility] Urine urobilinogen measureme ntOrdered By: Isaias Trivedi on 08-31-2024 Urobilinogen Ql (U) Normal mg/dl Normal [facility] White blood cell (WBC) count Ordered By: Isaias Trivedi on 08-31-2024 WBC (Bld) [#/Vol] 12.6 10*3/uL High 4.4-11.0 [facility] White blood cell countOrdere d By: Isaias Trivedi on 08-31-2024 White blood cell count 0-5 SEEN /hpf 0-[address] [facility] CNPNon 08-27-2024 CNPN Telephone (FAMPWS) -- FRAN PAREKH ([id number]) 1945 M Date Time Provider Department 08/27[facility]24 [facility] your visit today, we recorded the following information about you: Sissy Campbell LPN 08/27/2024 12:00 PM Signed Received form from [facility] regarding upcoming procedure [...] mouth daily at bedtime. - CPAP AutoPAP [id number]. Mask per preference, tubing, filters, humidity. [employer]. Dx: G47.33. Fax 30 day compliance report to [phone]. - CPAP Please provide mask fitting. Pt [...] 03/25/2009 Open fracture of distal phalangeal tuft [[id number]*08/31/2011 05/09/2014 Internal derangement of right knee [M23.91] [...] CAMPBELL on (more content not included)... Normal [facility] Comprehensive metabolic 2000 panelon 08-15-2024 Albumin [Mass/Vol] 3.9 g/dL Normal 3.9-4.9 [facility] Comment on above: Order Comment: Speci men Type: BLOOD SPECIMENOrdering Facility: [facility] Address: [address] [place] [address] Performed By: #### 2 4323-8, 14764-5, 6-3 ####[facility] [id number] [place] [address] [place] ALP [Catalytic activity/Vol] 85 U/L Normal 38-113 [facility] Comment on above: Order Comment: Speci men Type: BLOOD SPECIMENOrdering Facility: [facility] Address: [address] [place] [address] Performed By: #### 2 4323-8, 21995-2, 6-3 ####[facility] [id number] [place] [id number] [place] ALT [Catalytic activity/Vol] 22 U/L Normal 10-54 [facility] Comment on above: Order Comment: Speci men Type: BLOOD SPECIMENOrdering Facility: [facility] Address: [address] [place] [address] Performed By: #### 2 4323-8, 54604-0, 6-3 ####[facility] LABIA [id number] [address] [address] [place] Anion gap [Moles/Vol] 13 mmol/L Normal 8-15 [facility] Comment on above: Order Comment: Speci men Type: BLOOD SPECIMENOrdering Facility: [facility] Address: [address] [place] [id number] Performed By: #### 2 4323-8, 32146-2, 6-3 ####[facility] LABCLIA [id number] [address] [address] [place] AST [Catalytic activity/Vol] 25 U/L Normal 14-40 [facility] Comment on above: Order Comment: Speci men Type: BLOOD SPECIMENOrdering Facility: [facility] Address: [address] [place], [place] [address] Performed By: #### 2 4323-8, 46965-0, 3015-3 ####[facility] LABIA [id number] [place] [id number] [place] Bilirubin [Mass/Vol] 0.5 mg/dL Normal 0.2-1.3 [facility] Comment on above: Order Comment: Speci men Type: BLOOD SPECIMENOrdering Facility: [facility] Address: [address] [place] [address] Performed By: #### 2 4323-8, 02954-9, 3015-3 ####[facility] LABIA [id number] [place] [id number] [place] Calcium [Mass/Vol] 9.1 mg/dL Normal 8.5-10.2 [facility] Comment on above: Order Comment: Speci men Type: BLOOD SPECIMENOrdering Facility: [facility] Address: [address] [place], [place] [address] Performed By: #### 2 4323-8, 69144-5, 6-3 ####[facility] LABIA [id number] [address] [address] [place] Chloride [Moles/Vol] 104 mmol/L Normal 98-107 [facility] Comment on above: Order Comment: Speci men Type: BLOOD SPECIMENOrdering Facility: [facility] Address: [address] [place] [address] Performed By: #### 2 4323-8, 55254-5, 6-3 ####[facility] LABCLIA [id number] [place] [id number] [place] CO2 [Moles/Vol] 22 mmol/L Normal 22-30 [facility] Comment on above: Order Comment: Speci men Type: BLOOD SPECIMENOrdering Facility: [facility] Address: [address] [place] [address] Performed By: #### 2 4323-8, 73335-3, 3015-3 ####[facility] LABIA [id number] [place] [address] [place] Creatinine [Mass/Vol] 1.40 mg/dL High 0.73-1.22 [facility] Comment on above: Order Comment: Speci men Type: BLOOD SPECIMENOrdering Facility: [facility] Address: [address] [place] [address] Performed By: #### 2 4323-8, 62439-3, 3 ####[facility] LABIA [id number] [place] [address] [place] Creatinine and Glomerular filtration rate.predicted panel (S/P/Bld) 51 mL/min/1.73m??? Low >=60 [facility] Comment on above: Order Comment: Speci men Type: BLOOD SPECIMENOrdering Facility: [facility] Address: [address] [place] [address] Result Comment: Danika mated Glomerular Filtration Rate [...] actual GFR. Performed By: #### 2 4323-8, 83621-9, 6-3 ####[facility] LABCLIA [id number] [place] [id number] [place] Glucose [Mass/Vol] 123 mg/dL High 74-99 [facility] Comment on above: Order Comment: Speci men Type: BLOOD SPECIMENOrdering Facility: [facility] Address: [address] [place] [address] Result Comment: The [place] Diabetes Association (ADA) provides guidance for cutoff [...] Standards of Medical Care in Diabetes 2016, [place] [employer]. Diabetes Care. 2016.39(Suppl 1). Performed By: #### 2 4323-8, 93169-2, 3015-3 ####[facility] [id number] [place] [id number] [place] Potassium [Moles/Vol] 4.4 mmol/L Normal 3.7-5.1 [facility] Comment on above: Order Comment: Speci men Type: BLOOD SPECIMENOrdering Facility: [facility] Address: [address] [place] [address] Performed By: #### 2 4323-8, 07995-2, 3015-3 ####[facility] [id number] [place] [id number] [place] Protein [Mass/Vol] 6.9 g/dL Normal 6.3-8.0 [facility] Comment on above: Order Comment: Speci men Type: BLOOD SPECIMENOrdering Facility: [facility] Address: [address] [place] [address] Performed By: #### 2 4323-8, 84198-4, 3016-3 ####[facility] LABCLIA [id number] [address] [address] [place] Sodium [Moles/Vol] 139 mmol/L Normal 136-144 [facility] Comment on above: Order Comment: Speci men Type: BLOOD SPECIMENOrdering Facility: [facility] Address: [address] [place] [address] Performed By: #### 2 4323-8, 19540-1, 3016-3 ####[facility] LABIA [id number] [address] [address] [place] Urea nitrogen [Mass/Vol] 19 mg/dL Normal 9-24 [facility] Comment on above: Order Comment: Speci men Type: BLOOD SPECIMENOrdering Facility: [facility] Address: [address] [place] [address] Performed By: #### 2 4323-8, 77084-7, 3016-3 ####[facility] [id number] [address] [address] [place] HbA1c (Bld)on 08-15-2024 Average glucose Estimated from glycated hemoglobin (Bld) [Mass/Vol] 126 mg/dL Normal [facility] Comment on above: Order Comment: Speci men Type: BLOOD SPECIMENOrdering Facility: [facility] Address: [address] [place] [address] Result Comment: eAG: (Estimated average glucose) is a calculated value from HgbA1c and is senior patient account representative of the average blood glucose level in the last 2-3 month period. Performed By: #### 5 5454-3 ####[facility] [id number] [address] [address] [place] HbA1c (Bld) [Mass fraction] 6.0 % High 4.3-5.6 [facility] Comment on above: Order Comment: Speci men Type: BLOOD SPECIMENOrdering Facility: [facility] Address: [address] [place] [address] Result Comment: [place] Diabetes Association guidelines indicate that patients with HgbA1c in the range 5.7-6.4% are at increased risk for development of diabetes, and intervention by lifestyle modification may be beneficial. HgbA1c greater or equal to 6.5% is considered diagnostic of diabetes. Performed By: #### 5 5454-3 ####[facility] LABCLIA [id number] [facility] [place] [id number] [place] Lipid 1996 panelon 5 Cholesterol [Mass/Vol] 138 mg/dL Normal <[address] [facility] Comment on above: Order Comment: Speci men Type: BLOOD SPECIMENOrdering Facility: [facility] Address: [address] [place] [address] Result Comment: <200 mg/dL, Desirable 200-239 mg/dL, Borderline high >239 mg/dL, High Performed By: #### 2 4323-8, 62018-3, 3016-3 ####[facility] LABCLIA [id number] [address], [address] STATES OF [facility] Cholesterol in HDL [Mass/Vol] 31 mg/dL Low >39 [facility] Comment on above: Order Comment: Ruthi men Type: BLOOD SPECIMENOrdering Facility: [facility] Address: [address] [place] [address] Result Comment: 40-5 9 mg/dL, Acceptable >59 mg/dL, High: Negative risk factor for coronary heart disease <40 mg/dL, Low: Positive risk factor for coronary heart disease Performed By: #### 2 4323-8, 66972-9, 3016-3 ####[facility] LABCLIA [id number] [place] [id number] [facility] Cholesterol in LDL [Mass/Vol] 59 mg/dL Normal <100 [facility] Comment on above: Order Comment: Ruthi men Type: BLOOD SPECIMENOrdering Facility: [facility] Address: [address] [place] [address] Result Comment: <100 mg/dL, Optimal 100-129 mg/dL, Near optimal/above optimal 130-159 mg/dL, Borderline high 160-189 mg/dL, High >189 mg/dL, Very high Secondary prevention optimal LDL Cholesterol levels are recommended to be < 70 mg/dL Performed By: #### 2 4323-8, 35047-7, 6-3 ####[facility] LABCLIA [id number] [address] [place] [address] [place] Cholesterol in LDL/Cholesterol in HDL [Mass ratio] 1.90 {ratio} Normal <2.54 [facility] Comment on above: Order Comment: Speci men Type: BLOOD SPECIMENOrdering Facility: [facility] Address: [address] [place] [address] Result Comment: Refe rence: 1. National Cholesterol Education Program ATP III Guideline At-A-Glance Quick Desk Reference: National Heart, Lung, and Blood [place]. National Institutes of Health. 2001: NIH Publication No. 01-3305. 2. An International Atherosclerosis Society position paper: global recommendations for the management of dyslipidemia: executive summary, Atherosclerosis. 2014: 232(2):410-413. Performed By: #### 2 4323-8, 37787-2, 3015-3 ####[facility] LABIA [id number] [address] [address] [place] Cholesterol in VLDL [Mass/Vol] 48 mg/dL High <30 [facility] Comment on above: Order Comment: Speci men Type: BLOOD SPECIMENOrdering Facility: [facility] Address: [address] [place] [address] Performed By: #### 2 4323-8, 68504-3, 3015-3 ####[facility] LABCLIA [id number] [facility] [address] [address] [place] Cholesterol non HDL [Mass/Vol] 107 mg/dL Normal <130 [facility] Comment on above: Order Comment: Speci men Type: BLOOD SPECIMENOrdering Facility: [facility] Address: [address] [place] [address] Result Comment: <130 mg/dL, Optimal 130-159 mg/dL, Near optimal/above optimal 160-189 mg/dL, Borderline high 190-219 mg/dL, High >219 mg/dL, Very high Secondary prevention optimal non HDL Cholesterol levels are recommended to be <100 mg/dL Performed By: #### 2 4323-8, 40845-2, 3015-3 ####[facility] LABCLIA [id number] [facility] [address] [place] [address] [place] Cholesterol.total/Chol esterol in HDL [Mass ratio] 4.45 {ratio} Normal <5.10 [facility] Comment on above: Order Comment: Speci men Type: BLOOD SPECIMENOrdering Facility: [facility] Address: [facility] [place] [address] Performed By: #### 2 4323-8, 35600-7, 3 ####[facility] LABCLIA [id number] [address] [place] [address] [place] FASTING TIME 12 hrs Normal [facility] Comment on above: Order Comment: Speci men Type: BLOOD SPECIMENOrdering Facility: [facility] Address: [address] [place] [address] Performed By: #### 2 4323-8, 37778-3, 3 ####[facility] LABCLIA [id number] [address] [place] [address] [place] Triglyceride [Mass/Vol] 242 mg/dL High <150 [facility] Comment on above: Order Comment: Speci men Type: BLOOD SPECIMENOrdering Facility: [facility] Address: [address] [place] [id number] Result Comment: <150 mg/dL, Normal 150-199 mg/dL, Borderline high 200-499 mg/dL, High >499 mg/dL, Very high Performed By: #### 2 4323-8, 88361-9, 3015-3 ####[facility] LABCLIA [id number] [address] [place] [address] [place] TSH SerPl-aCncon 08-15-2024 TSH Qn 7.390 m[IU]/L High 0.270-4.20 0 [facility] Comment on above: Order Comment: Speci men Type: BLOOD SPECIMENOrdering Facility: [facility] Address: [address] [place] [address] [place] [address] Performed By: #### 2 4323-8, 35393-5, 3016-3 ####[facility] LABCLIA [id number] [facility]PITALR[facility] [address] OF [facility] CNOVon 08-13-2024 CNOV Office Visit (FAMPWS ) -- FRAN PAREKH ([id number]) 1945 M Date Time Provider Department 08/13/24 11:40 AM MARILIA OROZCO During your visit today, we recorded the following information about you: Pulse Respiration Blood pressure Weight 65/minute 18/minute 118/82 133.7 kg Height 1.766 m Marilia Orozco APRN.COOKER SULFITE 08/13/2024 12:17 PM Signed 08/12/2024 Patient presents [...] gi upset: Yes 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 Sher, cold patcher, for hx of choledocholithiasis. Recent ERCP on [...] of skin of nose Dr. Chowdary in [place] Stage 3a chronic kidney disease (HCC) Venous [...] not taking: Reported on 12/19/2023) CPAP AutoPAP 10-29uhA2M. Mask per preference, tubing, filters, humidity. Lifetime Supplies. Dx: G47.33. Fax 30 day compliance report to [phone]. CPAP Please provide mask fitting. Pt with [...] signs review (more content not included)... Normal [facility] Gastroenterology Visit Repor ton 07-23-2024 Gastroenterology Visit Report Normal [facility] ERCP Biliary/Pancreason ERCP Biliary/Pancreas Normal [facility] ERCP Reporton 07-04-2024 ERCP Report Normal [facility] Immunohistochemical Stainson 07-04-2024 Immunohistochemical Stains Normal [facility] Comment on above: Performed By: #### P IMVA ####[facility] [address] [place], [place], [id number] MR/POSTOP.ANEon 07-04-2024 MR/POSTOP.ANE Normal [facility] MR/ASOZZWRX3bq 07-04-2024 MR/POSTOPAN2 Normal [facility] Special Stain Group IIon Special Stain Group II Normal [facility] Comment on above: Performed By: #### P SSII ####[facility] [address] [place], [address] MR/PAT.ANEon 07-02-2024 MR/PAT.ANE Normal [facility] CNPNon 06-24-2024 [facility] Telephone ([facility]) -- FRAN PAREKH ([id number]) 1945 M Date Time Provider Department 06/24/[address] [facility] During your visit today, we recorded the following information about you: Home [facility] PSS 06/24/2024 2:18 PM Addendum Called patient to reschedule 10/22/[address] Burrows, 1st attempt, left . Please offer virtual appointment at [place] [phone] or [facility]. Home Horton PSS 06/28/2024 11:06 AM Signed [...] hour before dental procedure. - CPAP AutoPAP [id number]. Mask per preference, tubing, filters, humidity. Lifetime Supplies. Dx: G47.33. Fax 30 day compliance report to [phone]. - CPAP Please provide mask fitting. Pt [...] 03/25/2009 Open fracture of distal phalangeal tuft [[id number]*08/31/2011 05/09/2014 Internal derangement of right knee [M23.91] [...] Status:Closed by HOME HORTON on 06/28/24 Normal [facility] Gastroenterology Visit Repor ton 04-16-2024 Gastroenterology Visit Report Normal [facility] Basic Metabolic Profile (BMP )on 04-04-2024 BUN Normal 7-[address] [facility] Comment on above: Result Comment: Canc elled via OM: Order cancelled - Patient discharged Performed By: #### L 100.0100, L500.2500 ####[facility] [address] [facility] [address] BUN/CRE Normal 10-[address] [facility] Comment on above: Result Comment: Canc elled via OM: Order cancelled - Patient discharged Performed By: #### L 100.0100, L500.2500 ####[facility] [address] [place], [address] CA,Total Normal 8.5-10.[address] [facility] Comment on above: Result Comment: Canc elled via OM: Order cancelled - Patient discharged Performed By: #### L 100.0100, L500.2500 ####[facility] [address] [facility] [address] CL Normal 98-[address] [facility] Comment on above: Result Comment: Canc elled via OM: Order cancelled - Patient discharged Performed By: #### L 100.0100, L500.2500 ####[facility] [address] [place], [address] CO2 Normal 21.0-32.[address] [facility] Comment on above: Result Comment: Canc elled via OM: Order cancelled - Patient discharged Performed By: #### L 100.0100, L500.2500 ####[facility] [address] [place], [address] CREAT,SERUM Normal 0.70-1.[address] [facility] Comment on above: Result Comment: Canc elled via OM: Order cancelled - Patient discharged Performed By: #### L 100.0100, L500.2500 ####[facility] [address] [place], [address] EST GFR Normal >[address] [facility] Comment on above: Result Comment: Canc elled via OM: Order cancelled - Patient discharged Performed By: #### L 100.0100, L500.2500 ####[facility] [address] [place], [address] EST GFR - AA Normal >[address] [facility] Comment on above: Result Comment: Canc elled via OM: Order cancelled - Patient discharged Performed By: #### L 100.0100, L500.2500 ####[facility] [address] [place], [address] GAP Normal 5-[address] [facility] Comment on above: Result Comment: Canc elled via OM: Order cancelled - Patient discharged Performed By: #### L 100.0100, L500.2500 ####[facility] [address] [place], [address] GLU Normal 74-[address] [facility] Comment on above: Result Comment: Canc elled via OM: Order cancelled - Patient discharged Performed By: #### L 100.0100, L500.2500 ####[facility] [address] [place], [address] Potassium Normal 3.5-5.[address] [facility] Comment on above: Result Comment: Canc elled via OM: Order cancelled - Patient discharged Performed By: #### L 100.0100, L500.2500 ####[facility] [address] [place], [address] Basic Metabolic Profile (BMP) Normal 136-[address] [facility] Comment on above: Result Comment: Canc elled via OM: Order cancelled - Patient discharged Performed By: #### L 100.0100, L500.2500 ####[facility] [address] [place], [address] CBC W/Diff, Automatedon 12-0 -2023 Absolute Neut Normal 2.0-7.[address] [facility] Comment on above: Result Comment: Canc elled via OM: Order cancelled - Patient discharged Performed By: #### L 100.0100, L500.2500 ####[facility] [address] [place], [address] HCT Normal 40-[address] [facility] Comment on above: Result Comment: Canc elled via OM: Order cancelled - Patient discharged Performed By: #### L 100.0100, L500.2500 ####[facility] [address] [place], [address] HGB Normal 13.0-16.[address] [facility] Comment on above: Result Comment: Canc elled via OM: Order cancelled - Patient discharged Performed By: #### L 100.0100, L500.2500 ####[facility] [address] [place], [address] MCH Normal 27.0-32.[address] [facility] Comment on above: Result Comment: Canc elled via OM: Order cancelled - Patient discharged Performed By: #### L 100.0100, L500.2500 ####[facility] [address] [place], [address] MCHC Normal 32-[address] [facility] Comment on above: Result Comment: Canc elled via OM: Order cancelled - Patient discharged Performed By: #### L 100.0100, L500.2500 ####[facility] [address] [place], [address] MCV Normal 80-[address] [facility] Comment on above: Result Comment: Canc elled via OM: Order cancelled - Patient discharged Performed By: #### L 100.0100, L500.2500 ####[facility] [address] [place], [address] NEUT% Normal 47-[address] [facility] Comment on above: Result Comment: Canc elled via OM: Order cancelled - Patient discharged Performed By: #### L 100.0100, L500.2500 ####[facility] [address] [place], [address] PLT Normal 150-[address] [facility] Comment on above: Result Comment: Canc elled via OM: Order cancelled - Patient discharged Performed By: #### L 100.0100, L500.2500 ####[facility] [address] [place], [address] RBC Normal 4.6-6.[address] [facility] Comment on above: Result Comment: Canc elled via OM: Order cancelled - Patient discharged Performed By: #### L 100.0100, L500.2500 ####[facility] [address] [place], [address] RDW CV Normal 11.6-14.[address] [facility] Comment on above: Result Comment: Canc elled via OM: Order cancelled - Patient discharged Performed By: #### L 100.0100, L500.2500 ####[facility] [address] [place], [address] RDW SD Normal 35.1-43.[address] [facility] Comment on above: Result Comment: Canc elled via OM: Order cancelled - Patient discharged Performed By: #### L 100.0100, L500.2500 ####[facility] [address] [place], [address] WBC Normal 4.4-11.[address] [facility] Comment on above: Result Comment: Canc elled via OM: Order cancelled - Patient discharged Performed By: #### L 100.0100, L500.2500 ####[facility] [address] [place], [address] Basic Metabolic Profile (BMP )on 04-03-2024 BUN Normal 7-[address] [facility] Comment on above: Result Comment: Canc elled via OM: Order cancelled - Patient discharged Performed By: #### L 100.0100, L500.2500 ####[facility] [address] [place], [address] BUN/CRE Normal 10-[address] [facility] Comment on above: Result Comment: Canc elled via OM: Order cancelled - Patient discharged Performed By: #### L 100.0100, L500.2500 ####[facility] [address] [place], [address] CA,Total Normal 8.5-10.[address] [facility] Comment on above: Result Comment: Canc elled via OM: Order cancelled - Patient discharged Performed By: #### L 100.0100, L500.2500 ####[facility] [address] [place], [address] CL Normal 98-[address] [facility] Comment on above: Result Comment: Canc elled via OM: Order cancelled - Patient discharged Performed By: #### L 100.0100, L500.2500 ####[facility] [address] [place], [address] CO2 Normal 21.0-32.[address] [facility] Comment on above: Result Comment: Canc elled via OM: Order cancelled - Patient discharged Performed By: #### L 100.0100, L500.2500 ####[facility] [address] [place], [address] CREAT,SERUM Normal 0.70-1.[address] [facility] Comment on above: Result Comment: Canc elled via OM: Order cancelled - Patient discharged Performed By: #### L 100.0100, L500.2500 ####[facility] [address] [place], [address] EST GFR Normal >[address] [facility] Comment on above: Result Comment: Canc elled via OM: Order cancelled - Patient discharged Performed By: #### L 100.0100, L500.2500 ####[facility] [address] [place], [address] EST GFR - AA Normal >[address] [facility] Comment on above: Result Comment: Canc elled via OM: Order cancelled - Patient discharged Performed By: #### L 100.0100, L500.2500 ####[facility] [address] [place], [address] GAP Normal 5-[address] [facility] Comment on above: Result Comment: Canc elled via OM: Order cancelled - Patient discharged Performed By: #### L 100.0100, L500.2500 ####[facility] [address] [place], [address] GLU Normal 74-[address] [facility] Comment on above: Result Comment: Canc elled via OM: Order cancelled - Patient discharged Performed By: #### L 100.0100, L500.2500 ####[facility] [address] [place], [address] Potassium Normal 3.5-5.[address] [facility] Comment on above: Result Comment: Canc elled via OM: Order cancelled - Patient discharged Performed By: #### L 100.0100, L500.2500 ####[facility] [address] [place], [address] Basic Metabolic Profile (BMP) Normal 136-[address] [facility] Comment on above: Result Comment: Canc elled via OM: Order cancelled - Patient discharged Performed By: #### L 100.0100, L500.2500 ####[facility] [address] [place], [address] CBC W/Diff, Automatedon 12-0 Absolute Neut Normal 2.0-7.[address] [facility] Comment on above: Result Comment: Canc elled via OM: Order cancelled - Patient discharged Performed By: #### L 100.0100, L500.2500 ####[facility] [address] [place], [address] HCT Normal 40-[address] [facility] Comment on above: Result Comment: Canc elled via OM: Order cancelled - Patient discharged Performed By: #### L 100.0100, L500.2500 ####[facility] [address] [place], [address] HGB Normal 13.0-16.[address] [facility] Comment on above: Result Comment: Canc elled via OM: Order cancelled - Patient discharged Performed By: #### L 100.0100, L500.2500 ####[facility] [address] [place], [address] MCH Normal 27.0-32.[address] [facility] Comment on above: Result Comment: Canc elled via OM: Order cancelled - Patient discharged Performed By: #### L 100.0100, L500.2500 ####[facility] [address] [place], [address] MCHC Normal 32-[address] [facility] Comment on above: Result Comment: Canc elled via OM: Order cancelled - Patient discharged Performed By: #### L 100.0100, L500.2500 ####[facility] [address] [place], [address] MCV Normal 80-[address] [facility] Comment on above: Result Comment: Canc elled via OM: Order cancelled - Patient discharged Performed By: #### L 100.0100, L500.2500 ####[facility] [address] [place], [address] NEUT% Normal 47-[address] [facility] Comment on above: Result Comment: Canc elled via OM: Order cancelled - Patient discharged Performed By: #### L 100.0100, L500.2500 ####[facility] [address] [place], [address] PLT Normal 150-[address] [facility] Comment on above: Result Comment: Canc elled via OM: Order cancelled - Patient discharged Performed By: #### L 100.0100, L500.2500 ####[facility] [address] [place], [address] RBC Normal 4.6-6.[address] [facility] Comment on above: Result Comment: Canc elled via OM: Order cancelled - Patient discharged Performed By: #### L 100.0100, L500.2500 ####[facility] [address] [place], [address] RDW CV Normal 11.6-14.[address] [facility] Comment on above: Result Comment: Canc elled via OM: Order cancelled - Patient discharged Performed By: #### L 100.0100, L500.2500 ####[facility] [address] [place], [address] RDW SD Normal 35.1-43.[address] [facility] Comment on above: Result Comment: Canc elled via OM: Order cancelled - Patient discharged Performed By: #### L 100.0100, L500.2500 ####[facility] [address] [place], [address] WBC Normal 4.4-11.[address] [facility] Comment on above: Result Comment: Canc elled via OM: Order cancelled - Patient discharged Performed By: #### L 100.0100, L500.2500 ####[facility] [address] [place], [address] Basic Metabolic Profile (BMP )on 04-02-2024 BUN Normal 7-[address] [facility] Comment on above: Result Comment: Canc elled via OM: Order cancelled - Patient discharged Performed By: #### L 100.0100, L500.2500 ####[facility] [address] [place], [address] BUN/CRE Normal 10-[address] [facility] Comment on above: Result Comment: Canc elled via OM: Order cancelled - Patient discharged Performed By: #### L 100.0100, L500.2500 ####[facility] [address] [place], [address] CA,Total Normal 8.5-10.[address] [facility] Comment on above: Result Comment: Canc elled via OM: Order cancelled - Patient discharged Performed By: #### L 100.0100, L500.2500 ####[facility] [address] [place], [address] CL Normal 98-[address] [facility] Comment on above: Result Comment: Canc elled via OM: Order cancelled - Patient discharged Performed By: #### L 100.0100, L500.2500 ####[facility] [address] [place], [address] CO2 Normal 21.0-32.[address] [facility] Comment on above: Result Comment: Canc elled via OM: Order cancelled - Patient discharged Performed By: #### L 100.0100, L500.2500 ####[facility] [address] [place], [address] CREAT,SERUM Normal 0.70-1.[address] [facility] Comment on above: Result Comment: Canc elled via OM: Order cancelled - Patient discharged Performed By: #### L 100.0100, L500.2500 ####[facility] [address] [place], [address] EST GFR Normal >[address] [facility] Comment on above: Result Comment: Canc elled via OM: Order cancelled - Patient discharged Performed By: #### L 100.0100, L500.2500 ####[facility] [address] [place], [address] EST GFR - AA Normal >[address] [facility] Comment on above: Result Comment: Canc elled via OM: Order cancelled - Patient discharged Performed By: #### L 100.0100, L500.2500 ####[facility] [address] [place], [address] GAP Normal 5-[address] [facility] Comment on above: Result Comment: Canc elled via OM: Order cancelled - Patient discharged Performed By: #### L 100.0100, L500.2500 ####[facility] [address] [place], [address] GLU Normal 74-[address] [facility] Comment on above: Result Comment: Canc elled via OM: Order cancelled - Patient discharged Performed By: #### L 100.0100, L500.2500 ####[facility] [address] [place], [address] Potassium Normal 3.5-5.[address] [facility] Comment on above: Result Comment: Canc elled via OM: Order cancelled - Patient discharged Performed By: #### L 100.0100, L500.2500 ####[facility] [address] [place], [address] Basic Metabolic Profile (BMP) Normal 136-[address] [facility] Comment on above: Result Comment: Canc elled via OM: Order cancelled - Patient discharged Performed By: #### L 100.0100, L500.2500 ####[facility] [address] [place], [address] CBC W/Diff, Automatedon 12-0 -2023 Absolute Neut Normal 2.0-7.[address] [facility] Comment on above: Result Comment: Canc elled via OM: Order cancelled - Patient discharged Performed By: #### L 100.0100, L500.2500 ####[facility] [address] [place], [address] HCT Normal 40-[address] [facility] Comment on above: Result Comment: Canc elled via OM: Order cancelled - Patient discharged Performed By: #### L 100.0100, L500.2500 ####[facility] [address] [place], [address] HGB Normal 13.0-16.[address] [facility] Comment on above: Result Comment: Canc elled via OM: Order cancelled - Patient discharged Performed By: #### L 100.0100, L500.2500 ####[facility] [address] [place], [address] MCH Normal 27.0-32.[address] [facility] Comment on above: Result Comment: Canc elled via OM: Order cancelled - Patient discharged Performed By: #### L 100.0100, L500.2500 ####[facility] [address] [place], [address] MCHC Normal 32-[address] [facility] Comment on above: Result Comment: Canc elled via OM: Order cancelled - Patient discharged Performed By: #### L 100.0100, L500.2500 ####[facility] [address] [place], [address] MCV Normal 80-[address] [facility] Comment on above: Result Comment: Canc elled via OM: Order cancelled - Patient discharged Performed By: #### L 100.0100, L500.2500 ####[facility] [address] [place], [address] NEUT% Normal 47-[address] [facility] Comment on above: Result Comment: Canc elled via OM: Order cancelled - Patient discharged Performed By: #### L 100.0100, L500.2500 ####[facility] [address] [place], [address] PLT Normal 150-[address] [facility] Comment on above: Result Comment: Canc elled via OM: Order cancelled - Patient discharged Performed By: #### L 100.0100, L500.2500 ####[facility] [address] [place], [address] RBC Normal 4.6-6.[address] [facility] Comment on above: Result Comment: Canc elled via OM: Order cancelled - Patient discharged Performed By: #### L 100.0100, L500.2500 ####[facility] [address] [place], [address] RDW CV Normal 11.6-14.[address] [facility] Comment on above: Result Comment: Canc elled via OM: Order cancelled - Patient discharged Performed By: #### L 100.0100, L500.2500 ####[facility] [address] [place], [address] RDW SD Normal 35.1-43.[address] [facility] Comment on above: Result Comment: Canc elled via OM: Order cancelled - Patient discharged Performed By: #### L 100.0100, L500.2500 ####[facility] [address] [place], [address] WBC Normal 4.4-11.[address] [facility] Comment on above: Result Comment: Canc elled via OM: Order cancelled - Patient discharged Performed By: #### L 100.0100, L500.2500 ####[facility] [address] [place], [address] Basic Metabolic Profile (BMP )on 04-01-2024 BUN Normal 7-[address] [facility] Comment on above: Result Comment: Canc elled via OM: Order cancelled - Patient discharged Performed By: #### L 500.2500, L100.0100 ####[facility] [address] [place], [address] BUN/CRE Normal 10-[address] [facility] Comment on above: Result Comment: Canc elled via OM: Order cancelled - Patient discharged Performed By: #### L 500.2500, L100.0100 ####[facility] [address] [place], [address] CA,Total Normal 8.5-10.[address] [facility] Comment on above: Result Comment: Canc elled via OM: Order cancelled - Patient discharged Performed By: #### L 500.2500, L100.0100 ####[facility] [address] [place], [address] CL Normal 98-[address] [facility] Comment on above: Result Comment: Canc elled via OM: Order cancelled - Patient discharged Performed By: #### L 500.2500, L100.0100 ####[facility] [address] [place], [address] CO2 Normal 21.0-32.[address] [facility] Comment on above: Result Comment: Canc elled via OM: Order cancelled - Patient discharged Performed By: #### L 500.2500, L100.0100 ####[facility] [address] [place], [address] CREAT,SERUM Normal 0.70-1.[address] [facility] Comment on above: Result Comment: Canc elled via OM: Order cancelled - Patient discharged Performed By: #### L 500.2500, L100.0100 ####[facility] [address] [place], [address] EST GFR Normal >[address] [facility] Comment on above: Result Comment: Canc elled via OM: Order cancelled - Patient discharged Performed By: #### L 500.2500, L100.0100 ####[facility] [address] [place], [address] EST GFR - AA Normal >[address] [facility] Comment on above: Result Comment: Canc elled via OM: Order cancelled - Patient discharged Performed By: #### L 500.2500, L100.0100 ####[facility] [address] [place], [address] GAP Normal 5-[address] [facility] Comment on above: Result Comment: Canc elled via OM: Order cancelled - Patient discharged Performed By: #### L 500.2500, L100.0100 ####[facility] [address] [place], [address] GLU Normal 74-[address] [facility] Comment on above: Result Comment: Canc elled via OM: Order cancelled - Patient discharged Performed By: #### L 500.2500, L100.0100 ####[facility] [address] [place], [address] Potassium Normal 3.5-5.[address] [facility] Comment on above: Result Comment: Canc elled via OM: Order cancelled - Patient discharged Performed By: #### L 500.2500, L100.0100 ####[facility] [address] [place], [address] Basic Metabolic Profile (BMP) Normal 136-[address] [facility] Comment on above: Result Comment: Canc elled via OM: Order cancelled - Patient discharged Performed By: #### L 500.2500, L100.0100 ####[facility] [address] [place], [address] CBC W/Diff, Automatedon 12-0 -2023 Absolute Neut Normal 2.0-7.[address] [facility] Comment on above: Result Comment: Canc elled via OM: Order cancelled - Patient discharged Performed By: #### L 500.2500, L100.0100 ####[facility] [address] [place], [address] HCT Normal 40-[address] [facility] Comment on above: Result Comment: Canc elled via OM: Order cancelled - Patient discharged Performed By: #### L 500.2500, L100.0100 ####[facility] [address] [place], [address] HGB Normal 13.0-16.[address] [facility] Comment on above: Result Comment: Canc elled via OM: Order cancelled - Patient discharged Performed By: #### L 500.2500, L100.0100 ####[facility] [address] [place], [address] MCH Normal 27.0-32.[address] [facility] Comment on above: Result Comment: Canc elled via OM: Order cancelled - Patient discharged Performed By: #### L 500.2500, L100.0100 ####[facility] [address] [place], [address] MCHC Normal 32-[address] [facility] Comment on above: Result Comment: Canc elled via OM: Order cancelled - Patient discharged Performed By: #### L 500.2500, L100.0100 ####[facility] [address] [place], [address] MCV Normal 80-[address] [facility] Comment on above: Result Comment: Canc elled via OM: Order cancelled - Patient discharged Performed By: #### L 500.2500, L100.0100 ####[facility] [address] [place], [address] NEUT% Normal 47-[address] [facility] Comment on above: Result Comment: Canc elled via OM: Order cancelled - Patient discharged Performed By: #### L 500.2500, L100.0100 ####[facility] [address] [place], [address] PLT Normal 150-[address] [facility] Comment on above: Result Comment: Canc elled via OM: Order cancelled - Patient discharged Performed By: #### L 500.2500, L100.0100 ####[facility] [address] [place], [address] RBC Normal 4.6-6.[address] [facility] Comment on above: Result Comment: Canc elled via OM: Order cancelled - Patient discharged Performed By: #### L 500.2500, L100.0100 ####[facility] [address] [place], [address] RDW CV Normal 11.6-14.[address] [facility] Comment on above: Result Comment: Canc elled via OM: Order cancelled - Patient discharged Performed By: #### L 500.2500, L100.0100 ####[facility] [address] [place], [address] RDW SD Normal 35.1-43.[address] [facility] Comment on above: Result Comment: Canc elled via OM: Order cancelled - Patient discharged Performed By: #### L 500.2500, L100.0100 ####[facility] [address] [place], [address] WBC Normal 4.4-11.[address] [facility] Comment on above: Result Comment: Canc elled via OM: Order cancelled - Patient discharged Performed By: #### L 500.2500, L100.0100 ####[facility] [address] [place], [address] CNOVon 04-01-2024 CNOV Office Visit (FAMPWS ) -- IGLESIAFRAN Tarah ([id number]) 1945 M Date Time Provider Department 04/01/24 12:00 PM MARILIA OROZCO During your visit today, we recorded the following information about you: Temperature Pulse Respiration Blood pressure 97.9 degrees 59/minute 18/minute 138/82 Weight 128.6 kg Marilia Orozco APRN.[facility]ULF[facility] 04/01/2024 2:48 PM Signed 04/01/2024 Patient presents with: Hospital F/U: [facility] 03/26-03/28 for pancreatitis SUBJECTIVE: This is a 78 year old that is here today for Above Complaints. HOSPITAL/ER FOLLOW UP: Reason for visit: abdominal pain, nausea, vomiting and dizziness Which facility: [facility] Date of visit: 03/26/2024-03/28/2024 Diagnosis: choledocholithiasis Testing [...] Readmission Risk Score: n/a Patient's zip code: [address] Is zip code within program service area: No Patient meets program referral criteria: No Patient does not qualify for High Risk TCM Home Visit program due to: Patient's zip code is not located within program service area Readmission Risk Score does not meet criteria Disposition: Patient does not qualify for HRTIC, will provide TCM outreach follow-up for 30-days Patient Source: Rzp-ow-Qxwfuuj (OON) Discharge Outreach Summary: Pt reports he is feeling well, caught up on sleep last night. States eating and drinking OK . No additional episodes of nausea, vomiting or abdominal pain , fevers, chills since dc. Started Omnicef as rx. Pt reports LVM for f/u with Dr. Nikky DSOUZA and has f/u with PCP office 04/01 Patient discharged from [facility] Discharge date: 03/28/24 Admitted for: Abdominal pain Readmission Risk: n/a Value-Based Contract: ACO Contact: Contact made with patient: Yes Hi, my name is Mitchel Walters RN and I am calling from the [facility] on behalf of your Primary Care Provider, [...] like to speak with a social work steamboat captain to help give you support for any [...] I will send your request to a manufacturing scheduler who will contact and assist you with that appointment. This will give you an opportunity to ask any questions or address any concerns you may have with your PCP. Inform the patient that if they have any questions or concerns prior to that appointment, t (more content not included)... Normal [facility] Basic Metabolic Profile (BMP )on 03-31-2024 BUN Normal 7-[address] [facility] Comment on above: Result Comment: Canc elled via OM: Order cancelled - Patient discharged Performed By: #### L 100.0100, L500.2500 ####[facility] [address] [place], [address] BUN/CRE Normal 10-[address] [facility] Comment on above: Result Comment: Canc elled via OM: Order cancelled - Patient discharged Performed By: #### L 100.0100, L500.2500 ####[facility] [address] [place], [address] CA,Total Normal 8.5-10.[address] [facility] Comment on above: Result Comment: Canc elled via OM: Order cancelled - Patient discharged Performed By: #### L 100.0100, L500.2500 ####[facility] [address] [place], [address] CL Normal 98-[address] [facility] Comment on above: Result Comment: Canc elled via OM: Order cancelled - Patient discharged Performed By: #### L 100.0100, L500.2500 ####[facility] [address] [place], [address] CO2 Normal 21.0-32.[address] [facility] Comment on above: Result Comment: Canc elled via OM: Order cancelled - Patient discharged Performed By: #### L 100.0100, L500.2500 ####[facility] [address] [place], [address] CREAT,SERUM Normal 0.70-1.[address] [facility] Comment on above: Result Comment: Canc elled via OM: Order cancelled - Patient discharged Performed By: #### L 100.0100, L500.2500 ####[facility] [address] [place], [address] EST GFR Normal >[address] [facility] Comment on above: Result Comment: Canc elled via OM: Order cancelled - Patient discharged Performed By: #### L 100.0100, L500.2500 ####[facility] [address] [place], [address] EST GFR - AA Normal >[address] [facility] Comment on above: Result Comment: Canc elled via OM: Order cancelled - Patient discharged Performed By: #### L 100.0100, L500.2500 ####[facility] [address] [place], [address] GAP Normal 5-[address] [facility] Comment on above: Result Comment: Canc elled via OM: Order cancelled - Patient discharged Performed By: #### L 100.0100, L500.2500 ####[facility] [address] [place], [address] GLU Normal 74-[address] [facility] Comment on above: Result Comment: Canc elled via OM: Order cancelled - Patient discharged Performed By: #### L 100.0100, L500.2500 ####[facility] [address] [place], [address] Potassium Normal 3.5-5.[address] [facility] Comment on above: Result Comment: Canc elled via OM: Order cancelled - Patient discharged Performed By: #### L 100.0100, L500.2500 ####[facility] [address] [place], [address] Basic Metabolic Profile (BMP) Normal 136-[address] [facility] Comment on above: Result Comment: Canc elled via OM: Order cancelled - Patient discharged Performed By: #### L 100.0100, L500.2500 ####[facility] [address] [place], [address] CBC W/Diff, Automatedon 12-0 Absolute Neut Normal 2.0-7.[address] [facility] Comment on above: Result Comment: Canc elled via OM: Order cancelled - Patient discharged Performed By: #### L 100.0100, L500.2500 ####[facility] [address] [place], [address] HCT Normal 40-[address] [facility] Comment on above: Result Comment: Canc elled via OM: Order cancelled - Patient discharged Performed By: #### L 100.0100, L500.2500 ####[facility] [address] [place], [address] HGB Normal 13.0-16.[address] [facility] Comment on above: Result Comment: Canc elled via OM: Order cancelled - Patient discharged Performed By: #### L 100.0100, L500.2500 ####[facility] [address] [place], [address] MCH Normal 27.0-32.[address] [facility] Comment on above: Result Comment: Canc elled via OM: Order cancelled - Patient discharged Performed By: #### L 100.0100, L500.2500 ####[facility] [address] [place], [address] MCHC Normal 32-[address] [facility] Comment on above: Result Comment: Canc elled via OM: Order cancelled - Patient discharged Performed By: #### L 100.0100, L500.2500 ####[facility] [address] [place], [address] MCV Normal 80-[address] [facility] Comment on above: Result Comment: Canc elled via OM: Order cancelled - Patient discharged Performed By: #### L 100.0100, L500.2500 ####[facility] [address] [place], [address] NEUT% Normal 47-[address] [facility] Comment on above: Result Comment: Canc elled via OM: Order cancelled - Patient discharged Performed By: #### L 100.0100, L500.2500 ####[facility] [address] [place], [address] PLT Normal 150-[address] [facility] Comment on above: Result Comment: Canc elled via OM: Order cancelled - Patient discharged Performed By: #### L 100.0100, L500.2500 ####[facility] [address] [place], [address] RBC Normal 4.6-6.[address] [facility] Comment on above: Result Comment: Canc elled via OM: Order cancelled - Patient discharged Performed By: #### L 100.0100, L500.2500 ####[facility] [address] [place], [address] RDW CV Normal 11.6-14.[address] [facility] Comment on above: Result Comment: Canc elled via OM: Order cancelled - Patient discharged Performed By: #### L 100.0100, L500.2500 ####[facility] [address] [place], [address] RDW SD Normal 35.1-43.[address] [facility] Comment on above: Result Comment: Canc elled via OM: Order cancelled - Patient discharged Performed By: #### L 100.0100, L500.2500 ####[facility] [address] [place], [address] WBC Normal 4.4-11.[address] [facility] Comment on above: Result Comment: Canc elled via OM: Order cancelled - Patient discharged Performed By: #### L 100.0100, L500.2500 ####[facility] [address] [place], [address] Basic Metabolic Profile (BMP )on 03-30-2024 BUN Normal 7-[address] [facility] Comment on above: Result Comment: Canc elled via OM: Order cancelled - Patient discharged Performed By: #### L 500.2500, L100.0100 ####[facility] [address] [place], [address] BUN/CRE Normal 10-[address] [facility] Comment on above: Result Comment: Canc elled via OM: Order cancelled - Patient discharged Performed By: #### L 500.2500, L100.0100 ####[facility] [address] [place], [address] CA,Total Normal 8.5-10.[address] [facility] Comment on above: Result Comment: Canc elled via OM: Order cancelled - Patient discharged Performed By: #### L 500.2500, L100.0100 ####[facility] [address] [place], [address] CL Normal 98-[address] [facility] Comment on above: Result Comment: Canc elled via OM: Order cancelled - Patient discharged Performed By: #### L 500.2500, L100.0100 ####[facility] [address] [place], [address] CO2 Normal 21.0-32.[address] [facility] Comment on above: Result Comment: Canc elled via OM: Order cancelled - Patient discharged Performed By: #### L 500.2500, L100.0100 ####[facility] [address] [place], [address] CREAT,SERUM Normal 0.70-1.[address] [facility] Comment on above: Result Comment: Canc elled via OM: Order cancelled - Patient discharged Performed By: #### L 500.2500, L100.0100 ####[facility] [address] [place], [address] EST GFR Normal >[address] [facility] Comment on above: Result Comment: Canc elled via OM: Order cancelled - Patient discharged Performed By: #### L 500.2500, L100.0100 ####[facility] [address] [place], [address] EST GFR - AA Normal >[address] [facility] Comment on above: Result Comment: Canc elled via OM: Order cancelled - Patient discharged Performed By: #### L 500.2500, L100.0100 ####[facility] [address] [place], [address] GAP Normal 5-[address] [facility] Comment on above: Result Comment: Canc elled via OM: Order cancelled - Patient discharged Performed By: #### L 500.2500, L100.0100 ####[facility] [address] [place], [address] GLU Normal 74-[address] [facility] Comment on above: Result Comment: Canc elled via OM: Order cancelled - Patient discharged Performed By: #### L 500.2500, L100.0100 ####[facility] [address] [place], [address] Potassium Normal 3.5-5.[address] [facility] Comment on above: Result Comment: Canc elled via OM: Order cancelled - Patient discharged Performed By: #### L 500.2500, L100.0100 ####[facility] [address] [place], [address] Basic Metabolic Profile (BMP) Normal 136-[address] [facility] Comment on above: Result Comment: Canc elled via OM: Order cancelled - Patient discharged Performed By: #### L 500.2500, L100.0100 ####[facility] [address] [place], [address] CBC W/Diff, Automatedon 11-3 0-2023 Absolute Neut Normal 2.0-7.[address] [facility] Comment on above: Result Comment: Canc elled via OM: Order cancelled - Patient discharged Performed By: #### L 500.2500, L100.0100 ####[facility] [address] [place], [address] HCT Normal 40-[address] [facility] Comment on above: Result Comment: Canc elled via OM: Order cancelled - Patient discharged Performed By: #### L 500.2500, L100.0100 ####[facility] [address] [place], [address] HGB Normal 13.0-16.[address] [facility] Comment on above: Result Comment: Canc elled via OM: Order cancelled - Patient discharged Performed By: #### L 500.2500, L100.0100 ####[facility] [address] [place], [address] MCH Normal 27.0-32.[address] [facility] Comment on above: Result Comment: Canc elled via OM: Order cancelled - Patient discharged Performed By: #### L 500.2500, L100.0100 ####[facility] [address] [place], [address] MCHC Normal 32-[address] [facility] Comment on above: Result Comment: Canc elled via OM: Order cancelled - Patient discharged Performed By: #### L 500.2500, L100.0100 ####[facility] [address] [place], [address] MCV Normal 80-[address] [facility] Comment on above: Result Comment: Canc elled via OM: Order cancelled - Patient discharged Performed By: #### L 500.2500, L100.0100 ####[facility] [address] [place], [address] NEUT% Normal 47-[address] [facility] Comment on above: Result Comment: Canc elled via OM: Order cancelled - Patient discharged Performed By: #### L 500.2500, L100.0100 ####[facility] [address] [place], [address] PLT Normal 150-[address] [facility] Comment on above: Result Comment: Canc elled via OM: Order cancelled - Patient discharged Performed By: #### L 500.2500, L100.0100 ####[facility] [address] [place], [address] RBC Normal 4.6-6.[address] [facility] Comment on above: Result Comment: Canc elled via OM: Order cancelled - Patient discharged Performed By: #### L 500.2500, L100.0100 ####[facility] [address] [place], [address] RDW CV Normal 11.6-14.[address] [facility] Comment on above: Result Comment: Canc elled via OM: Order cancelled - Patient discharged Performed By: #### L 500.2500, L100.0100 ####[facility] [address] [place], [address] RDW SD Normal 35.1-43.[address] [facility] Comment on above: Result Comment: Canc elled via OM: Order cancelled - Patient discharged Performed By: #### L 500.2500, L100.0100 ####[facility] [address] [place], [address] WBC Normal 4.4-11.[address] [facility] Comment on above: Result Comment: Canc elled via OM: Order cancelled - Patient discharged Performed By: #### L 500.2500, L100.0100 ####[facility] [address] [place], [address] Basic Metabolic Profile (BMP )on 03-29-2024 BUN Normal 7-[address] [facility] Comment on above: Result Comment: Canc elled via OM: Order cancelled - Patient discharged Performed By: #### L 500.2500, L100.0100 ####[facility] [address] [place], [address] BUN/CRE Normal 10-[address] [facility] Comment on above: Result Comment: Canc elled via OM: Order cancelled - Patient discharged Performed By: #### L 500.2500, L100.0100 ####[facility] [address] [place], [address] CA,Total Normal 8.5-10.[address] [facility] Comment on above: Result Comment: Canc elled via OM: Order cancelled - Patient discharged Performed By: #### L 500.2500, L100.0100 ####[facility] [address] [place], [address] CL Normal 98-[address] [facility] Comment on above: Result Comment: Canc elled via OM: Order cancelled - Patient discharged Performed By: #### L 500.2500, L100.0100 ####[facility] [address] [place], [address] CO2 Normal 21.0-32.[address] [facility] Comment on above: Result Comment: Canc elled via OM: Order cancelled - Patient discharged Performed By: #### L 500.2500, L100.0100 ####[facility] [address] [place], [address] CREAT,SERUM Normal 0.70-1.[address] [facility] Comment on above: Result Comment: Canc elled via OM: Order cancelled - Patient discharged Performed By: #### L 500.2500, L100.0100 ####[facility] [address] [place], [address] EST GFR Normal >[address] [facility] Comment on above: Result Comment: Canc elled via OM: Order cancelled - Patient discharged Performed By: #### L 500.2500, L100.0100 ####[facility] [address] [place], [address] EST GFR - AA Normal >[address] [facility] Comment on above: Result Comment: Canc elled via OM: Order cancelled - Patient discharged Performed By: #### L 500.2500, L100.0100 ####[facility] [address] [place], [address] GAP Normal 5-[address] [facility] Comment on above: Result Comment: Canc elled via OM: Order cancelled - Patient discharged Performed By: #### L 500.2500, L100.0100 ####[facility] [address] [place], [address] GLU Normal 74-[address] [facility] Comment on above: Result Comment: Canc elled via OM: Order cancelled - Patient discharged Performed By: #### L 500.2500, L100.0100 ####[facility] [address] [place], [address] Potassium Normal 3.5-5.[address] [facility] Comment on above: Result Comment: Canc elled via OM: Order cancelled - Patient discharged Performed By: #### L 500.2500, L100.0100 ####[facility] [address] [place], [address] Basic Metabolic Profile (BMP) Normal 136-[address] [facility] Comment on above: Result Comment: Canc elled via OM: Order cancelled - Patient discharged Performed By: #### L 500.2500, L100.0100 ####[facility] [address] [place], [address] CBC W/Diff, Automatedon 11-2 Absolute Neut Normal 2.0-7.[address] [facility] Comment on above: Result Comment: Canc elled via OM: Order cancelled - Patient discharged Performed By: #### L 500.2500, L100.0100 ####[facility] [address] [place], [address] HCT Normal 40-[address] [facility] Comment on above: Result Comment: Canc elled via OM: Order cancelled - Patient discharged Performed By: #### L 500.2500, L100.0100 ####[facility] [address] [place], [address] HGB Normal 13.0-16.[address] [facility] Comment on above: Result Comment: Canc elled via OM: Order cancelled - Patient discharged Performed By: #### L 500.2500, L100.0100 ####[facility] [address] [place], [address] MCH Normal 27.0-32.[address] [facility] Comment on above: Result Comment: Canc elled via OM: Order cancelled - Patient discharged Performed By: #### L 500.2500, L100.0100 ####[facility] [address] [place], [address] MCHC Normal 32-[address] [facility] Comment on above: Result Comment: Canc elled via OM: Order cancelled - Patient discharged Performed By: #### L 500.2500, L100.0100 ####[facility] [address] [place], [address] MCV Normal 80-[address] [facility] Comment on above: Result Comment: Canc elled via OM: Order cancelled - Patient discharged Performed By: #### L 500.2500, L100.0100 ####[facility] [address] [place], [address] NEUT% Normal 47-[address] [facility] Comment on above: Result Comment: Canc elled via OM: Order cancelled - Patient discharged Performed By: #### L 500.2500, L100.0100 ####[facility] [address] [place], [address] PLT Normal 150-[address] [facility] Comment on above: Result Comment: Canc elled via OM: Order cancelled - Patient discharged Performed By: #### L 500.2500, L100.0100 ####[facility] [address] [place], [address] RBC Normal 4.6-6.[address] [facility] Comment on above: Result Comment: Canc elled via OM: Order cancelled - Patient discharged Performed By: #### L 500.2500, L100.0100 ####[facility] [address] [place], [address] RDW CV Normal 11.6-14.[address] [facility] Comment on above: Result Comment: Canc elled via OM: Order cancelled - Patient discharged Performed By: #### L 500.2500, L100.0100 ####[facility] [address] [place], [address] RDW SD Normal 35.1-43.[address] [facility] Comment on above: Result Comment: Canc elled via OM: Order cancelled - Patient discharged Performed By: #### L 500.2500, L100.0100 ####[facility] [address] [place], [address] WBC Normal 4.4-11.[address] [facility] Comment on above: Result Comment: Canc elled via OM: Order cancelled - Patient discharged Performed By: #### L 500.2500, L100.0100 ####[facility] [address] [place], [address] Absolute neutrophil countOrd ered By: Altagracia Lo on 03-28-2024 Neutrophils (Bld) [#/Vol] 8.8 10*3/uL High 2.0-7.[address] [facility] Basic Metabolic Profile (BMP )on 03-28-2024 BUN/CRE 16.3 RATIO Normal 10-[address] [facility] Comment on above: Performed By: #### L 100.0100, L500.2500 ####[facility] [address] [place], [address] CA,Total 8.5 mg/dL Normal 8.5-10.[address] [facility] Comment on above: Performed By: #### L 100.0100, L500.2500 ####[facility] [address] [place], [address] Chloride [Moles/Vol] 106 mmol/L Normal 98-107 [facility] Comment on above: Performed By: #### L 100.0100, L500.2500 ####[facility] [address] [place], [address] CO2 [Moles/Vol] 25.0 mmol/L Normal 21.0-32.[address] [facility] Comment on above: Performed By: #### L 100.0100, L500.2500 ####[facility] [address] [place], [address] Creatinine [Mass/Vol] 1.47 mg/dL High 0.70-1.30 [facility] Comment on above: Result Comment: The validity of the calculated GFR GFRAA in patients over70 years has not been determined. Clinical correlation isessential. Performed By: #### L 100.0100, L500.2500 ####[facility] [address] [place], [address] ECRCL 55.28 ml/min Normal [facility] Comment on above: Performed By: #### L 100.0100, L500.2500 ####[facility] [address] [place], [address] EST GFR - AA 59 mL/min Low >[address] [facility] Comment on above: Result Comment: Afri can [facility] GFR Calc Performed By: #### L 100.0100, L500.2500 ####[facility] [address] [place], [address] GAP 7 Normal 5-[address] [facility] Comment on above: Performed By: #### L 100.0100, L500.2500 ####[facility] [address] [place], [address] GFR/1.73 sq M.predicted among non-blacks MDRD (S/P/Bld) [Vol rate/Area] 49 mL/min/{1.73_m2} Low >[address] [facility] Comment on above: Result Comment: Non- GFR Calc Performed By: #### L 100.0100, L500.2500 ####[facility] [address] [place], [address] Glucose [Mass/Vol] 142 mg/dL High 74-106 [facility] Comment on above: Result Comment: Fast ing Glucose result greater than or equal to 126 mg/dLsuggests DIABETES MELLITUS per A.D.A. criteria. Performed By: #### L 100.0100, L500.2500 ####[facility] [address] [place], [address] Potassium [Moles/Vol] 4.1 mmol/L Normal 3.5-5.1 [facility] Comment on above: Performed By: #### L 100.0100, L500.2500 ####[facility] [address] [place], [address] Sodium [Moles/Vol] 138 mmol/L Normal 136-145 [facility] Comment on above: Performed By: #### L 100.0100, L500.2500 ####[facility] [address] [place], [address] Urea nitrogen [Mass/Vol] 24 mg/dL High 7-[address] [facility] Comment on above: Performed By: #### L 100.0100, L500.2500 ####[facility] [address] [place], [address] Basophil percentageOrdered B y: Altagracia Lo on 03-28-2024 Basophils/100 WBC (Bld) 0.1 % 0-[address] [facility] Blood urea nitrogen (BUN)/cr eatinine ratioOrdered By: Altagracia Lo on 03-28-2024 Urea nitrogen/Creatinine [Mass ratio] 16.3 mg/mg - [facility] CBC W/Diff, Automatedon 03-02 Absolute Lymph 1.08 X10 3/uL Normal 0.83-4.[address] [facility] Comment on above: Performed By: #### L 100.0100, L500.2500 ####[facility] [address] [place], [address] Absolute Neut 8.8 X10 3/uL High 2.0-7.[address] [facility] Comment on above: Performed By: #### L 100.0100, L500.2500 ####[facility] [address] [place], [address] Basophils/100 WBC (Bld) 0.1 % Normal 0-[address] [facility] Comment on above: Performed By: #### L 100.0100, L500.2500 ####[facility] [address] [place], [address] Eosinophils/100 WBC (Bld) 0.0 % Normal 0-[address] [facility] Comment on above: Performed By: #### L 100.0100, L500.2500 ####[facility] [address] [place], [address] Erythrocyte distribution width (RBC) [Ratio] 13.4 % Normal 11.6-14.[address] [facility] Comment on above: Performed By: #### L 100.0100, L500.2500 ####[facility] [address] [place], [address] Hematocrit (Bld) [Volume fraction] 39.3 % Low 40-[address] [facility] Comment on above: Performed By: #### L 100.0100, L500.2500 ####[facility] [address] [place], [address] Hemoglobin (Bld) [Mass/Vol] 13.3 g/dL Normal 13.0-16.[address] [facility] Comment on above: Performed By: #### L 100.0100, L500.2500 ####[facility] [address] [place], [address] IG% 0.600 Normal 0.0-0.[address] [facility] Comment on above: Result Comment: IG% - Immature Granulocytes (promyelocytes, myelocytes andmetamyelocytes) > 1% indicates that a LEFT SHIFT is Present. Performed By: #### L 100.0100, L500.2500 ####[facility] [address] [place], [address] Lymphocytes/100 WBC (Bld) 10.3 % Low 19-[address] [facility] Comment on above: Performed By: #### L 100.0100, L500.2500 ####[facility] [address] [place], [address] MCH (RBC) [Entitic mass] 31.7 pg Normal 27.0-32.[address] [facility] Comment on above: Performed By: #### L 100.0100, L500.2500 ####[facility] [address] [place], [address] MCHC (RBC) [Mass/Vol] 33.8 g/dL Normal 32-36 [facility] Comment on above: Performed By: #### L 100.0100, L500.2500 ####[facility] [address] [place], [address] MCV (RBC) [Entitic vol] 93.6 fL Normal 80-[address] [facility] Comment on above: Performed By: #### L 100.0100, L500.2500 ####[facility] [address] [place], [address] Monocytes/100 WBC (Bld) 5.2 % Normal 0-[address] [facility] Comment on above: Performed By: #### L 100.0100, L500.2500 ####[facility] [address] [place], [address] Neutrophils/100 WBC (Bld) 83.8 % High 47-[address] [facility] Comment on above: Performed By: #### L 100.0100, L500.2500 ####[facility] [address] [place], [address] Nucleated RBC (Bld) [#/Vol] 0 10*3/uL Normal 0-[address] [facility] Comment on above: Performed By: #### L 100.0100, L500.2500 ####[facility] [address] [place], [address] Platelet mean volume (Bld) [Entitic vol] 10.1 fL Normal 6.2-12.[address] [facility] Comment on above: Performed By: #### L 100.0100, L500.2500 ####[facility] [address] [place], [address] Platelets (Bld) [#/Vol] 210 10*3/uL Normal 150-[address] [facility] Comment on above: Performed By: #### L 100.0100, L500.2500 ####[facility] [address] [place], [address] RBC (Bld) [#/Vol] 4.20 10*6/uL Low 4.6-6.2 [facility] Comment on above: Performed By: #### L 100.0100, L500.2500 ####[facility] [address] [place], [address] RDW SD 45.4 fl High 35.1-43.[address] [facility] Comment on above: Performed By: #### L 100.0100, L500.2500 ####[facility] [address] [place], [address] WBC (Bld) [#/Vol] 10.5 10*3/uL Normal 4.4-11.0 [facility] Comment on above: Performed By: #### L 100.0100, L500.2500 ####[facility] [address] [place], [place], [address] Carbohydrate AG 19-9on 03-28 CA 19-9 < 2 Normal 0-[address] [facility] Comment on above: Result Comment: [employer] Electrochemiluminescence Immunoassay(ECLIA)Values obtained with different assay methods or kits cannotbe used interchangeably. Results cannot be interpreted asabsolute evidence of the presence or absence of malignantdisease.Performed at: [facility] [id number] Director: Donell Erazo PhD, Phone: [phone] Performed By: #### L 3101.5025 ####[facility] [address] [place], [place], [address] Carbon dioxide measurementOr dered By: Altagracia Lo on 03-28-2024 CO2 [Moles/Vol] 25.0 mmol/L 21.0-32.[address] [facility] Chloride measurementOrdered By: Altagracia Lo on 03-28-2024 Chloride [Moles/Vol] 106 mmol/L 98-107 [facility] Consultation - Surgicalon Consultation - Surgical Normal [facility] Discharge Instructionon 03-02 Discharge Instruction Normal [facility] Eosinophil percentageOrdered By: Altagracia Lo on 03-28-2024 Eosinophils/100 WBC (Bld) 0.0 % 0-[address] [facility] Erythrocyte distribution wid th ratioOrdered By: Altagracia Lo on 03-28-2024 Erythrocyte distribution width (RBC) [Ratio] 13.4 % 11.6-14.[address] [facility] Erythrocyte distribution wid th standard deviationOrdered By: Altagracia Lo on 03-28-2024 Erythrocyte distribution width (RBC) [Entitic vol] 45.4 fL High 35.1-43.[address] [facility] Estimated glomerular filtrat ion rate (GFR) AmericanOrdered By: Altagracia Lo on 03-28-2024 Estimated GFR (MDRD) Amer 59 mL/min Low >[address] [facility] Comment on above: GFR Calc Estimation of creatinine edgardo aranceOrdered By: Altagracia Lo on 03-28-2024 Estimated Creatinine Clearance Calc 55.28 ml/min [facility] Glomerular filtration rate ( GFR) estimationOrdered By: Altagracia Lo on 03-28-2024 Estimated GFR (MDRD) Non-Af Amer 49 mL/min Low >[address] [facility] Comment on above: Non- GFR Calc Glucose measurementOrdered B y: Altagracia Lo on 03-28-2024 Glucose [Mass/Vol] 142 mg/dL High 74-106 [facility] Comment on above: Fasting Glucose resu lt greater than or equal to 126 mg/dL suggests DIABETES MELLITUS per A.D.A. criteria. Hematocrit Auto (Bld) [Volum e fraction]Ordered By: Altagracia Lo on 03-28-2024 Hematocrit (Bld) [Volume fraction] 39.3 % Low 40-[address] [facility] Hemoglobin measurementOrdere d By: Altagracia Lo on 03-28-2024 Hemoglobin (Bld) [Mass/Vol] 13.3 g/dL 13.0-16.[address] [facility] Immature granulocytes/100 WB C Auto (Bld)Ordered By: Altagracia Lo on 03-28-2024 Immature granulocytes/100 WBC (Bld) 0.600 % 0.0-0.[address] [facility] Comment on above: IG% - Immature Granu locytes (promyelocytes, myelocytes and metamyelocytes) > 1% indicates that a LEFT SHIFT is Present. Lymphocytes Auto (Unsp spec) [#/Vol]Ordered By: Altagracia Lo on 03-28-2024 Lymphocytes (Bld) [#/Vol] 1.08 10*3/uL 0.83-4.[address] [facility] Lymphocytes/100 WBC Auto (Un sp spec)Ordered By: Altagracia Lo on 03-28-2024 Lymphocytes/100 WBC (Bld) 10.3 % Low 19-[address] [facility] MCV (mean corpuscular volume ) determinationOrdered By: Altagracia Lo on 03-28-2024 MCV (RBC) [Entitic vol] 93.6 fL 80-[address] [facility] Mean corpuscular hemoglobin (MCH) determinationOrdered By: Altagracia Lo on 03-28-2024 MCH (RBC) [Entitic mass] 31.7 pg 27.0-32.[address] [facility] Mean corpuscular hemoglobin concentration (MCHC) determinationOrdered By: Altagracia Lo on 03-28-2024 MCHC (RBC) [Mass/Vol] 33.8 g/dL 32-36 [facility] Mean platelet volume determi nationOrdered By: Altagracia Lo on 03-28-2024 Platelet mean volume (Bld) [Entitic vol] 10.1 fL 6.2-12.[address] [facility] Monocyte percentageOrdered B y: Altagracia Lo on 03-28-2024 Monocytes/100 WBC (Bld) 5.2 % 0-[address] [facility] Neutrophil percentageOrdered By: Altagracia Lo on 03-28-2024 Neutrophils/100 WBC (Bld) 83.8 % High 47-[address] [facility] Nucleated red blood cell per centageOrdered By: Altagracia Lo on 03-28-2024 Nucleated RBC/100 WBC (Bld) [Ratio] 0 % 0-[address] [facility] Platelet countOrdered By: Na na Wlaly on 03-28-2024 Platelets (Bld) [#/Vol] 210 10*3/uL 150-[address] [facility] Potassium measurementOrdered By: Altagracia Lo on 03-28-2024 Potassium [Moles/Vol] 4.1 mmol/L 3.5-5.1 [facility] RBC Auto (Bld) [#/Vol]Ordere d By: Altagracia Lo on 03-28-2024 RBC (Bld) [#/Vol] 4.20 10*6/uL Low 4.6-6.2 [facility] Serum anion gap measurementO rdered By: Altagracia Lo on 03-28-2024 Anion gap [Moles/Vol] 7 mmol/L 5-15 [facility] Serum or plasma calcium anson urement (mass/volume)Ordered By: Altagracia Lo on 03-28-2024 Calcium [Mass/Vol] 8.5 mg/dL 8.5-10.1 [facility] Serum or plasma creatinine m easurement (mass/volume)Ordered By: Altagracia Lo on 03-28-2024 Creatinine [Mass/Vol] 1.47 mg/dL High 0.70-1.30 [facility] Comment on above: The validity of the calculated GFR & GFRAA in patients over 70 years has not been determined. Clinical correlation is essential. Serum or plasma urea nitroge n measurement (mass/volume)Ordered By: Altagracia Lo on 03-28-2024 Urea nitrogen [Mass/Vol] 24 mg/dL High 7-[address] [facility] Sodium levelOrdered By: Altagracia Lo on 03-28-2024 Sodium [Moles/Vol] 138 mmol/L 136-145 [facility] White blood cell (WBC) count Ordered By: Altagracia Lo on 03-28-2024 WBC (Bld) [#/Vol] 10.5 10*3/uL 4.4-11.0 [facility] Albumin to globulin ratioOrd ered By: Andrea Serrano on 03-27-2024 Albumin/Globulin [Mass ratio] 0.8 {ratio} Low 0.9-2.[address] [facility] Bilirubin, totalOrdered By: Andrea Serrano on 03-27-2024 Bilirubin [Mass/Vol] 1.50 mg/dL High 0.20-1.00 [facility] Comment on above: For patients on eltr ombopag therapy, use of Dimension [place] TBIL is not recommended. CA 19-9 agOrdered By: Vaishali Shre on 03-27-2024 CA 19-9 Antigen < 2 U/mL 0-[address] [facility] Comment on above: [employer] El ectrochemiluminescence Immunoassay(ECLIA)Values obtained with different assay methods or kits cannotbe used interchangeably. Results cannot be interpreted asabsolute evidence of the presence or absence of malignantdisease.Performed at: [facility] [employer] [id number] Director: Donell Erazo PhD, Phone: [phone] CBC-Complete Blood Cnt No Dahiana borrero 03-27-2024 Erythrocyte distribution width (RBC) [Ratio] 13.8 % Normal 11.6-14.[address] [facility] Comment on above: Performed By: #### L 500.4050, L100.0500 ####[facility] [address] [place], [address] Hematocrit (Bld) [Volume fraction] 38.8 % Low 40-[address] [facility] Comment on above: Performed By: #### L 500.4050, L100.0500 ####[facility] [address] [place], [address] Hemoglobin (Bld) [Mass/Vol] 12.7 g/dL Low 13.0-16.[address] [facility] Comment on above: Performed By: #### L 500.4050, L100.0500 ####[facility] [address] [place], [address] MCH (RBC) [Entitic mass] 31.1 pg Normal 27.0-32.[address] [facility] Comment on above: Performed By: #### L 500.4050, L100.0500 ####[facility] [address] [place], [address] MCHC (RBC) [Mass/Vol] 32.7 g/dL Normal 32-36 [facility] Comment on above: Performed By: #### L 500.4050, L100.0500 ####[facility] [address] [place], [address] MCV (RBC) [Entitic vol] 95.1 fL High 80-[address] [facility] Comment on above: Performed By: #### L 500.4050, L100.0500 ####[facility] [address] [place], [address] Platelet mean volume (Bld) [Entitic vol] 9.4 fL Normal 6.2-12.[address] [facility] Comment on above: Performed By: #### L 500.4050, L100.0500 ####[facility] [address] [place], [address] Platelets (Bld) [#/Vol] 174 10*3/uL Normal 150-[address] [facility] Comment on above: Performed By: #### L 500.4050, L100.0500 ####[facility] [address] [place], [address] RBC (Bld) [#/Vol] 4.08 10*6/uL Low 4.6-6.2 [facility] Comment on above: Performed By: #### L 500.4050, L100.0500 ####[facility] [address] [place], [address] RDW SD 48.2 fl High 35.1-43.[address] [facility] Comment on above: Performed By: #### L 500.4050, L100.0500 ####[facility] [address] [place], [address] WBC (Bld) [#/Vol] 9.1 10*3/uL Normal 4.4-11.0 [facility] Comment on above: Performed By: #### L 500.4050, L100.0500 ####[facility] [address] [place], [address] Comprehensive Metabolic [facility] 03-27-2024 Albumin [Mass/Vol] 2.6 g/dL Low 3.2-5.0 [facility] Comment on above: Performed By: #### L 500.4050, L100.0500 ####[facility] [address] [place], [address] Albumin/Globulin [Mass ratio] 0.8 {ratio} Low 0.9-2.[address] [facility] Comment on above: Performed By: #### L 500.4050, L100.0500 ####[facility] [address] [place], [address] ALK P 107 U/L Normal 45-[address] [facility] Comment on above: Performed By: #### L 500.4050, L100.0500 ####[facility] [address] [place], [address] ALT [Catalytic activity/Vol] 228 U/L High 16-[address] [facility] Comment on above: Performed By: #### L 500.4050, L100.0500 ####[facility] [address] [place], [address] AST [Catalytic activity/Vol] 128 U/L High 15-[address] [facility] Comment on above: Performed By: #### L 500.4050, L100.0500 ####[facility] [address] [place], [address] Bilirubin [Mass/Vol] 1.50 mg/dL High 0.20-1.00 [facility] Comment on above: Result Comment: For patients on eltrombopag therapy, use of Dimension [place] TBIL is not recommended. Performed By: #### L 500.4050, L100.0500 ####[facility] [address] [place], [address] BUN/CRE 15.0 RATIO Normal 10-[address] [facility] Comment on above: Performed By: #### L 500.4050, L100.0500 ####[facility] [address] [place], [address] CA,Total 8.2 mg/dL Low 8.5-10.[address] [facility] Comment on above: Performed By: #### L 500.4050, L100.0500 ####[facility] [address] [place], [address] Chloride [Moles/Vol] 107 mmol/L Normal 98-107 [facility] Comment on above: Performed By: #### L 500.4050, L100.0500 ####[facility] [address] [place], [address] CO2 [Moles/Vol] 27.0 mmol/L Normal 21.0-32.[address] [facility] Comment on above: Performed By: #### L 500.4050, L100.0500 ####[facility] [address] [place], [address] Creatinine [Mass/Vol] 1.60 mg/dL High 0.70-1.30 [facility] Comment on above: Result Comment: The validity of the calculated GFR GFRAA in patients over70 years has not been determined. Clinical correlation isessential. Performed By: #### L 500.4050, L100.0500 ####[facility] [address] [place], [address] ECRCL 50.79 ml/min Normal [facility] Comment on above: Performed By: #### L 500.4050, L100.0500 ####[facility] [address] [place], [address] EST GFR - AA 54 mL/min Low >[address] [facility] Comment on above: Result Comment: Afri can [facility] GFR Calc Performed By: #### L 500.4050, L100.0500 ####[facility] [address] [place], [address] GAP 5 Normal 5-[address] [facility] Comment on above: Performed By: #### L 500.4050, L100.0500 ####[facility] [address] [place], [address] GFR/1.73 sq M.predicted among non-blacks MDRD (S/P/Bld) [Vol rate/Area] 45 mL/min/{1.73_m2} Low >[address] [facility] Comment on above: Result Comment: Non- GFR Calc Performed By: #### L 500.4050, L100.0500 ####[facility] [address] [place], [address] Globulin (S) [Mass/Vol] 3.3 g/dL Normal 2.2-4.[address] [facility] Comment on above: Performed By: #### L 500.4050, L100.0500 ####[facility] [address] [place], [address] Glucose [Mass/Vol] 126 mg/dL High 74-106 [facility] Comment on above: Result Comment: Fast ing Glucose result greater than or equal to 126 mg/dLsuggests DIABETES MELLITUS per A.D.A. criteria. Performed By: #### L 500.4050, L100.0500 ####[facility] [address] [place], [address] Potassium [Moles/Vol] 3.6 mmol/L Normal 3.5-5.1 [facility] Comment on above: Performed By: #### L 500.4050, L100.0500 ####[facility] [address] [place], [address] Sodium [Moles/Vol] 139 mmol/L Normal 136-145 [facility] Comment on above: Performed By: #### L 500.4050, L100.0500 ####[facility] [address] [place], [address] T PROT 5.9 g/dL Low 6.4-8.[address] [facility] Comment on above: Performed By: #### L 500.4050, L100.0500 ####[facility] [address] [place], [address] Urea nitrogen [Mass/Vol] 24 mg/dL High 7-18 [facility] Comment on above: Performed By: #### L 500.4050, L100.0500 ####[facility] [address] [place], [place], [id number] ERCP Biliary/Pancreason 03-02 ERCP Biliary/Pancreas Normal [facility] ERCP Reporton 03-27-2024 ERCP Report Normal [facility] Laboratory - Chemistry and C hemistry - challengeOrdered By: Andrea Serrano on 03-27-2024 AST [Catalytic activity/Vol] 128 U/L High 15-[address] [facility] MR/POSTOP.ANEon 03-27-2024 MR/POSTOP.ANE Normal [facility] MR/GQPFCPCB1hp 03-27-2024 MR/POSTOPAN2 Normal [facility] Magnesiumon 03-27-2024 Magnesium [Mass/Vol] 2.6 mg/dL Normal 1.6-2.6 [facility] Comment on above: Performed By: #### L 501.5200 ####[facility] [address] [place], [place], [address] Magnesium measurementOrdered By: Altagracia Lo on 03-27-2024 Magnesium [Mass/Vol] 2.6 mg/dL 1.6-2.6 [facility] Serum globulin measurementOr dered By: Andrea Serrano on 03-27-2024 Globulin (S) [Mass/Vol] 3.3 g/dL 2.2-4.[address] [facility] Serum or plasma alanine wilde otransferase (ALT) measurementOrdered By: Andrea Serrano on 03-27-2024 ALT [Catalytic activity/Vol] 228 U/L High 16-[address] [facility] Serum or plasma albumin anson urement (mass/volume)Ordered By: Andrea Serrano on 03-27-2024 Albumin [Mass/Vol] 2.6 g/dL Low 3.2-5.0 [facility] Serum or plasma alkaline rui sphatase measurementOrdered By: Andrea Serrano on 03-27-2024 ALP [Catalytic activity/Vol] 107 U/L 45-[address] [facility] Total proteinOrdered By: Marianne Serrano on 11-27-2024 Protein [Mass/Vol] 5.9 g/dL Low 6.4-8.2 [facility] Abdomen/Pelvis W IV Cont ONL Yon 03-26-2024 Abdomen/Pelvis W IV Cont ONLY Normal [facility] Basic Metabolic Profile (BMP )on 03-26-2024 BUN/CRE 14.4 RATIO Normal 10-[address] [facility] Comment on above: Performed By: #### L 300.4310, L500.2500, L300.3900, L501.2450, L501.5200, L500.3400, L100.0100 ####[facility] [address] [place], [address] CA,Total 8.9 mg/dL Normal 8.5-10.[address] [facility] Comment on above: Performed By: #### L 300.4310, L500.2500, L300.3900, L501.2450, L501.5200, L500.3400, L100.0100 ####[facility] [address] [place], [address] Chloride [Moles/Vol] 104 mmol/L Normal 98-107 [facility] Comment on above: Performed By: #### L 300.4310, L500.2500, L300.3900, L501.2450, L501.5200, L500.3400, L100.0100 ####[facility] [address] [place], [address] CO2 [Moles/Vol] 26.0 mmol/L Normal 21.0-32.[address] [facility] Comment on above: Performed By: #### L 300.4310, L500.2500, L300.3900, L501.2450, L501.5200, L500.3400, L100.0100 ####[facility] [address] [place], [address] Creatinine [Mass/Vol] 1.74 mg/dL High 0.70-1.30 [facility] Comment on above: Result Comment: The validity of the calculated GFR GFRAA in patients over70 years has not been determined. Clinical correlation isessential. Performed By: #### L 300.4310, L500.2500, L300.3900, L501.2450, L501.5200, L500.3400, L100.0100 ####[facility] [address] [place], [place], [address] ECRCL 46.70 ml/min Normal [facility] Comment on above: Performed By: #### L 300.4310, L500.2500, L300.3900, L501.2450, L501.5200, L500.3400, L100.0100 ####[facility] [address] [place], [address] EST GFR - AA 49 mL/min Low >[address] [facility] Comment on above: Result Comment: Afri can [facility] GFR Calc Performed By: #### L 300.4310, L500.2500, L300.3900, L501.2450, L501.5200, L500.3400, L100.0100 ####[facility] [address] [place], [address] GAP 9 Normal 5-[address] [facility] Comment on above: Performed By: #### L 300.4310, L500.2500, L300.3900, L501.2450, L501.5200, L500.3400, L100.0100 ####[facility] [address] [place], [place], [address] GFR/1.73 sq M.predicted among non-blacks MDRD (S/P/Bld) [Vol rate/Area] 40 mL/min/{1.73_m2} Low >[address] [facility] Comment on above: Result Comment: Non- GFR Calc Performed By: #### L 300.4310, L500.2500, L300.3900, L501.2450, L501.5200, L500.3400, L100.0100 ####[facility] [address] [place], [address] Glucose [Mass/Vol] 163 mg/dL High 74-106 [facility] Comment on above: Result Comment: Fast ing Glucose result greater than or equal to 126 mg/dLsuggests DIABETES MELLITUS per A.D.A. criteria. Performed By: #### L 300.4310, L500.2500, L300.3900, L501.2450, L501.5200, L500.3400, L100.0100 ####[facility] [address] [place], [address] Potassium [Moles/Vol] 3.7 mmol/L Normal 3.5-5.1 [facility] Comment on above: Performed By: #### L 300.4310, L500.2500, L300.3900, L501.2450, L501.5200, L500.3400, L100.0100 ####[facility] [address] [place], [address] Sodium [Moles/Vol] 139 mmol/L Normal 136-145 [facility] Comment on above: Performed By: #### L 300.4310, L500.2500, L300.3900, L501.2450, L501.5200, L500.3400, L100.0100 ####[facility] [address] [place], [address] Urea nitrogen [Mass/Vol] 25 mg/dL High 7-[address] [facility] Comment on above: Performed By: #### L 300.4310, L500.2500, L300.3900, L501.2450, L501.5200, L500.3400, L100.0100 ####[facility] [address] [place], [address] Bilirubin Test strip Ql (U)O rdered By: Thomas Domínguez on 03-26-2024 Bilirubin Ql (U) Negative Negative [facility] Bilirubin directOrdered By: Thomas Domínguez on 03-26-2024 Bilirubin.direct [Mass/Vol] 2.57 mg/dL High 0.00-0.[address] [facility] Comment on above: Performed By: #### L 300.4310, L500.2500, L300.3900, L501.2450, L501.5200, L500.3400, L100.0100 ####[facility] [address] [place], [address] Brain/Head without Contrasto n 03-26-2024 Brain/Head without Contrast Normal [facility] CBC W/Diff, Automatedon 03-02 Absolute Lymph 0.49 X10 3/uL Low 0.83-4.[address] [facility] Comment on above: Performed By: #### L 300.4310, L500.2500, L300.3900, L501.2450, L501.5200, L500.3400, L100.0100 ####[facility] [address] [place], [address] Absolute Neut 11.5 X10 3/uL High 2.0-7.[address] [facility] Comment on above: Performed By: #### L 300.4310, L500.2500, L300.3900, L501.2450, L501.5200, L500.3400, L100.0100 ####[facility] [address] [place], [address] Basophils/100 WBC (Bld) 0.2 % Normal 0-[address] [facility] Comment on above: Performed By: #### L 300.4310, L500.2500, L300.3900, L501.2450, L501.5200, L500.3400, L100.0100 ####[facility] [address] [place], [address] Eosinophils/100 WBC (Bld) 0.1 % Normal 0-[address] [facility] Comment on above: Performed By: #### L 300.4310, L500.2500, L300.3900, L501.2450, L501.5200, L500.3400, L100.0100 ####[facility] [address] [place], [address] Erythrocyte distribution width (RBC) [Ratio] 13.8 % Normal 11.6-14.[address] [facility] Comment on above: Performed By: #### L 300.4310, L500.2500, L300.3900, L501.2450, L501.5200, L500.3400, L100.0100 ####[facility] [address] [place], [address] Hematocrit (Bld) [Volume fraction] 42.2 % Normal 40-[address] [facility] Comment on above: Performed By: #### L 300.4310, L500.2500, L300.3900, L501.2450, L501.5200, L500.3400, L100.0100 ####[facility] [address] [place], [address] Hemoglobin (Bld) [Mass/Vol] 14.4 g/dL Normal 13.0-16.[address] [facility] Comment on above: Performed By: #### L 300.4310, L500.2500, L300.3900, L501.2450, L501.5200, L500.3400, L100.0100 ####[facility] [address] [place], [address] IG% 0.800 Normal 0.0-0.[address] [facility] Comment on above: Result Comment: IG% - Immature Granulocytes (promyelocytes, myelocytes andmetamyelocytes) > 1% indicates that a LEFT SHIFT is Present. Performed By: #### L 300.4310, L500.2500, L300.3900, L501.2450, L501.5200, L500.3400, L100.0100 ####[facility] [address] [place], [address] Lymphocytes/100 WBC (Bld) 3.7 % Low 19-[address] [facility] Comment on above: Performed By: #### L 300.4310, L500.2500, L300.3900, L501.2450, L501.5200, L500.3400, L100.0100 ####[facility] [address] [place], [address] MCH (RBC) [Entitic mass] 32.1 pg High 27.0-32.[address] [facility] Comment on above: Performed By: #### L 300.4310, L500.2500, L300.3900, L501.2450, L501.5200, L500.3400, L100.0100 ####[facility] [address] [place], [address] MCHC (RBC) [Mass/Vol] 34.1 g/dL Normal 32-36 [facility] Comment on above: Performed By: #### L 300.4310, L500.2500, L300.3900, L501.2450, L501.5200, L500.3400, L100.0100 ####[facility] [address] [place], [address] MCV (RBC) [Entitic vol] 94.0 fL Normal 80-[address] [facility] Comment on above: Performed By: #### L 300.4310, L500.2500, L300.3900, L501.2450, L501.5200, L500.3400, L100.0100 ####[facility] [address] [place], [address] Monocytes/100 WBC (Bld) 8.7 % Normal 0-[address] [facility] Comment on above: Performed By: #### L 300.4310, L500.2500, L300.3900, L501.2450, L501.5200, L500.3400, L100.0100 ####[facility] [address] [place], [address] Neutrophils/100 WBC (Bld) 86.5 % High 47-[address] [facility] Comment on above: Performed By: #### L 300.4310, L500.2500, L300.3900, L501.2450, L501.5200, L500.3400, L100.0100 ####[facility] [address] [place], [address] Nucleated RBC (Bld) [#/Vol] 0 10*3/uL Normal 0-[address] [facility] Comment on above: Performed By: #### L 300.4310, L500.2500, L300.3900, L501.2450, L501.5200, L500.3400, L100.0100 ####[facility] [address] [place], [address] Platelet mean volume (Bld) [Entitic vol] 9.7 fL Normal 6.2-12.[address] [facility] Comment on above: Performed By: #### L 300.4310, L500.2500, L300.3900, L501.2450, L501.5200, L500.3400, L100.0100 ####[facility] [address] [place], [address] Platelets (Bld) [#/Vol] 198 10*3/uL Normal 150-[address] [facility] Comment on above: Performed By: #### L 300.4310, L500.2500, L300.3900, L501.2450, L501.5200, L500.3400, L100.0100 ####[facility] [address] [place], [address] RBC (Bld) [#/Vol] 4.49 10*6/uL Low 4.6-6.2 [facility] Comment on above: Performed By: #### L 300.4310, L500.2500, L300.3900, L501.2450, L501.5200, L500.3400, L100.0100 ####[facility] [address] [place], [place], [id number](707) RDW SD 47.4 fl High 35.1-43.[address] [facility] Comment on above: Performed By: #### L 300.4310, L500.2500, L300.3900, L501.2450, L501.5200, L500.3400, L100.0100 ####[facility] [address] [place], [place], [id number] WBC (Bld) [#/Vol] 13.3 10*3/uL High 4.4-11.0 [facility] Comment on above: Performed By: #### L 300.4310, L500.2500, L300.3900, L501.2450, L501.5200, L500.3400, L100.0100 ####[facility] [address] [place], [place], [id number] Emergency Department Summary on 03-26-2024 Emergency Department Summary Normal [facility] Epithelial cells.squamous LM Ql (Urine sed)Ordered By: Thomas Domínguez on 03-26-2024 Epithelial cells.squamous LM.HPF (Urine sed) [#/Area] 0 /[HPF] 0-[address] [facility] Gallbladderon 03-26-2024 Gallbladder Normal [facility] Glucose Ql (U)Ordered By: Peace Domínguez on 03-26-2024 Urine Glucose (UA) Normal mg/dl Normal [facility] H AND P Exam - Hospitaliston 03-26-2024 H&P Exam - Hospitalist Normal [facility] normalized rat io (INR) calculationOrdered By: Thomas Domínguez on 03-26-2024 INR Coag (Bld) [Relative time] 1.1 {INR} [facility] Ketones Test strip Ql (U)Ord ered By: Thomas Domínguez on 03-26-2024 Ketones Ql (U) 5 mg/dl High Negative [facility] Lipase measurementOrdered By : Thomas Domínguez on 03-26-2024 Lipase [Catalytic activity/Vol] U/L High 13-[address] [facility] Comment on above: Please note:LIPASE [...] 300.4310, L500.2500, L300.3900, L501.2450, L501.5200, L500.3400, L100.0100 ####[facility] [address] [place], [place], [id number] Liver Profileon 03-26-2024 Albumin [Mass/Vol] 3.2 g/dL Normal 3.2-5.0 [facility] Comment on above: Performed By: #### L 300.4310, L500.2500, L300.3900, L501.2450, L501.5200, L500.3400, L100.0100 ####[facility] [address] [place], [place], [id number] ALK P 135 U/L High 45-[address] [facility] Comment on above: Performed By: #### L 300.4310, L500.2500, L300.3900, L501.2450, L501.5200, L500.3400, L100.0100 ####[facility] [address] [place], [place], [id number] ALT [Catalytic activity/Vol] 344 U/L High 16-[address] [facility] Comment on above: Performed By: #### L 300.4310, L500.2500, L300.3900, L501.2450, L501.5200, L500.3400, L100.0100 ####[facility] [address] [place], [address] AST [Catalytic activity/Vol] 287 U/L High 15-[address] [facility] Comment on above: Performed By: #### L 300.4310, L500.2500, L300.3900, L501.2450, L501.5200, L500.3400, L100.0100 ####[facility] [address] [place], [address] Bilirubin [Mass/Vol] 4.00 mg/dL High 0.20-1.00 [facility] Comment on above: Result Comment: For patients on eltrombopag therapy, use of Dimension [place] TBIL is not recommended. Performed By: #### L 300.4310, L500.2500, L300.3900, L501.2450, L501.5200, L500.3400, L100.0100 ####[facility] [address] [place], [address] Globulin (S) [Mass/Vol] 3.5 g/dL Normal 2.2-4.[address] [facility] Comment on above: Performed By: #### L 300.4310, L500.2500, L300.3900, L501.2450, L501.5200, L500.3400, L100.0100 ####[facility] [address] [place], [address] T PROT 6.7 g/dL Normal 6.4-8.[address] [facility] Comment on above: Performed By: #### L 300.4310, L500.2500, L300.3900, L501.2450, L501.5200, L500.3400, L100.0100 ####[facility] [address] [place], [address] MR/CON.PCM.GIon 03-26-2024 MR/CON.PCM.GI Normal [facility] MRCP Abdomen without Contras ton 03-26-2024 MRCP Abdomen without Contrast Normal [facility] Magnesiumon 03-26-2024 Magnesium [Mass/Vol] 1.4 mg/dL Low 1.6-2.6 [facility] Comment on above: Performed By: #### L 300.4310, L500.2500, L300.3900, L501.2450, L501.5200, L500.3400, L100.0100 ####[facility] [address] [place], [address] Microscopic analysis of urin e for red blood cells (RBC)Ordered By: Thomas Domínguez on 03-26-2024 Urine RBC 5-10 SEEN /hpf 0-[address] [facility] Mucus LM Ql (Urine sed)Order ed By: Thomas Domínguez on 03-26-2024 Mucus Ql (Urine sed) 0 SEEN /hpf [facility] Nitrite Test strip Ql (U)Ord ered By: Thomas Domínguez on 03-26-2024 Nitrite Ql (U) Negative Negative [facility] Partial Thromboplast Timeon 03-26-2024 aPTT Coag (Bld) [Time] 25.8 s Normal 24.1-36.2 [facility] Comment on above: Performed By: #### L 300.4310, L500.2500, L300.3900, L501.2450, L501.5200, L500.3400, L100.0100 ####[facility] [address] [place], [place], [id number] Protein Test strip Ql (U)Ord ered By: Thomas Domínguez on 03-26-2024 Protein Ql (U) 15 mg/dl High Negative [facility] Prothrombin Time w/INRon INR Coag (PPP) [Relative time] 1.1 {INR} Normal [facility] Comment on above: Performed By: #### L 300.4310, L500.2500, L300.3900, L501.2450, L501.5200, L500.3400, L100.0100 ####[facility] [address] [place], [address] PT Coag (PPP) [Time] 14.4 s Normal 11.7-14.9 [facility] Comment on above: Performed By: #### L 300.4310, L500.2500, L300.3900, L501.2450, L501.5200, L500.3400, L100.0100 ####[facility] [address] [place], [address] Prothrombin timeOrdered By: Thomas Domínguez on 03-26-2024 PT Coag (PPP) [Time] 14.4 s 11.7-14.9 [facility] Urinalysis, Completeon 03-26 BACTERIA 2+ /hpf Normal None Seen [facility] Comment on above: Order Comment: CLEAN CATCH Performed By: #### L 400.0001 ####[facility] [address] [place], [address] EPI,SQUAMOUS 0-5 SEEN Normal 0-[address] [facility] Comment on above: Order Comment: CLEAN CATCH Performed By: #### L 400.0001 ####[facility] [address] [place], [address] RBC 5-10 SEEN Normal 0-[address] [facility] Comment on above: Order Comment: CLEAN CATCH Performed By: #### L 400.0001 ####[facility] [address] [place], [address] Mucus Ql (Urine sed) 0 SEEN Normal [facility] Comment on above: Order Comment: CLEAN CATCH Performed By: #### L 400.0001 ####[facility] [address] [place], [address] WBC 0 SEEN Normal 0-[address] [facility] Comment on above: Order Comment: CLEAN CATCH Performed By: #### L 400.0001 ####[facility] [address] [place], [address] Urine blood detectionOrdered By: Thomas Domínguez on 03-26-2024 Urine Occult Blood 10 /ul High Negative [facility] Urine clarityOrdered By: Barry Domínguez on 03-26-2024 Clarity (U) Sl. Cloudy Clear [facility] Urine color determinationOrd ered By: Thomas Domínguez on 03-26-2024 Color (U) Yellow Yellow [facility] Urine leukocyte esterase det ection by dipstickOrdered By: Thomas Domínguez on 03-26-2024 Leukocyte esterase Test strip Ql (U) Negative Negative [facility] Urine pHOrdered By: Thomas bryan on 03-26-2024 pH (U) 6.0 [pH] 5.0 - 8.[address] [facility] Urine sediment bacteria coun t by microscopy (number/high power field)Ordered By: Thomas Domínguez on 03-26-2024 Bacteria LM.HPF (Urine sed) [#/Area] 2 /[HPF] None Seen [facility] Urine specific gravity measu rementOrdered By: Thomas Domínguez on 03-26-2024 Specific gravity (U) [Rel density] 1.010 1.002-1.[address] [facility] Urobilinogen Ql (U)Ordered B y: Thomas Domínguez on 03-26-2024 Urobilinogen (U) [Mass/Vol] 4 mg/dL High Normal [facility] White blood cell countOrdere d By: Thomas Domínguez on 03-26-2024 Urine WBC 0 SEEN /hpf 0-[address] [facility] aPTT Coag (PPP) [Time]Ordere d [...] as described, moderate to severe at C6-C7 Needle Maker: WILNER Transcribe Date/Time: Mar 01 2024 12:10A Dictated by : CHELSEA CASTILLO MD This examination was interpreted and the report reviewed and electronically signed by: CHELSEA CASTILLO MD on Mar 01 2024 12:12AM EST [id number] Normal [facility] XR SHOULDER 2V AP/TRUE AP LT [...] the greater tuberosity suggests rotator cuff tendinosis. Needle Maker: [employer] Transcribe Date/Time: Mar 01 2024 12:12A Dictated by : CHELSEA CASTILLO MD This examination was interpreted and the report reviewed and electronically signed by: CHELSEA CASTILLO MD on Mar 01 2024 12:18AM EST [id number] Normal [facility] CNOVon 02-14-2024 CNOV Office Visit (FAMPWS ) -- FRAN PAREKH ([id number]) 1945 M Date Time Provider Department 02/14/24 11:40 AM MARILIA OROZCO During your visit today, we recorded the following information about you: Pulse Respiration Blood pressure Weight 60/minute 18/minute 138/84 132.2 kg Marilia Orozco APRN.COOKER SULFITE 02/14/2024 4:37 PM Signed 02/14/2024 Patient presents with: Follow Up: Right leg swelling Pain: Left shoulder/upper back into neck pain SUBJECTIVE: This is a 78 year old that is here today for Above Complaints.. ONSET: Monday afternoon after lifting boxes LOCATION: left shoulder/back/neck DURATION: constant CHARACTERISTICS: oliver AGGRAVATING FEATURES: neck flexion ALLEVIATING FEATURES: tylenol Hurt it playing [employer] years ago. Denies past surgeries,extremity numbness, tingling, [...] of skin of nose Dr. Chowdary in [place] Stage 3a chronic kidney disease (HCC) Venous [...] not taking: Reported on 12/19/2023) CPAP AutoPAP [id number]. Mask per preference, tubing, filters, humidity. Lifetime Supplies. Dx: G47.33. Fax 30 day compliance report to [phone]. CPAP Please provide mask fitting. Pt with [...] red stre (more content not included)... [facility] ([facility] -- FRAN PAREKH ([id number]) 1945 M Date Time Provider Department 02/08/24 PODLOGAR, MARILIA CARDOZA During your visit today, we recorded the following information about you: Sissy Abbott LPN 02/08/2024 10:02 AM Signed Pt calling for an appt to hillary right lower leg cellulitis. Pt states area has improved, only has slight redness AND he would like it recked. Pt reports pain is gone. Pt requesting appt with Telephone Technician Podlogar. 1st avial with her is 02/14/24, [...] hour before dental procedure. - CPAP AutoPAP [id number]. Mask per preference, tubing, filters, humidity. Lifetime Supplies. Dx: G47.33. Fax 30 day compliance report to [phone]. - CPAP Please provide mask fitting. Pt [...] 03/25/2009 Open fracture of distal phalangeal tuft [[id number]*08/31/2011 05/09/2014 Internal derangement of right knee [M23.91] [...] 05/15/2023 Ac (more content not included)... 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 PROMINENT PREPATELLAR BURSITIS. MILD OSTEOARTHRITIS. Needle Maker: [employer] Transcribe Date/Time: Jan 26 2024 1:16P Dictated [...] of skin of nose Dr. Chowdary in [place] Stage 3a chronic kidney disease (HCC) Venous [...] Take 1 (more content not included)... Normal [facility] MR Knee - right WO contrasto n 01-27-2024 IMPRESSION: MEDIAL MENISCUS TEAR WITH A COMPONENT DISPLACED/EXTRUDED TOWARDS THE INFEROMEDIAL GUTTER. PROMINENT PREPATELLAR BURSITIS. MILD OSTEOARTHRITIS. 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 PROMINENT PREPATELLAR BURSITIS. MILD OSTEOARTHRITIS. Needle Maker: WILNER Transcribe Date/Time: Jan 26 2024 1:16P Dictated by : CHELSEA ACSTILLO MD This examination was interpreted and the report reviewed and electronically signed by: CHELSEA CASTILLO MD on Jan 27 2024 3:42PM EST [facility] MR Knee - right WO contrastO rdered By: [facility] Provider on 01-27-2024 [facility] Basic Metabolic Profile (BMP )on 01-26-2024 BUN/CRE 14.4 RATIO Normal 10-[address] [facility] Comment on above: Performed By: #### L 503.6005, L500.2500, L100.0500 ####[facility] [address] [place], [address] CA,Total 9.2 mg/dL Normal 8.5-10.[address] [facility] Comment on above: Performed By: #### L 503.6005, L500.2500, L100.0500 ####[facility] [address] [place], [address] Chloride [Moles/Vol] 108 mmol/L High 98-107 [facility] Comment on above: Performed By: #### L 503.6005, L500.2500, L100.0500 ####[facility] [address] [place], [address] CO2 [Moles/Vol] 27.0 mmol/L Normal 21.0-32.[address] [facility] Comment on above: Performed By: #### L 503.6005, L500.2500, L100.0500 ####[facility] [address] [place], [address] Creatinine [Mass/Vol] 1.53 mg/dL High 0.70-1.30 [facility] Comment on above: Result Comment: The validity of the calculated GFR GFRAA in patients over70 years has not been determined. Clinical correlation isessential. Performed By: #### L 503.6005, L500.2500, L100.0500 ####[facility] [address] [place], [address] ECRCL 54.51 ml/min Normal [facility] Comment on above: Performed By: #### L 503.6005, L500.2500, L100.0500 ####[facility] [address] [place], [address] EST GFR - AA 57 mL/min Low >[address] [facility] Comment on above: Result Comment: Afri can [facility] GFR Calc Performed By: #### L 503.6005, L500.2500, L100.0500 ####[facility] [address] [place], [address] GAP 6 Normal 5-[address] [facility] Comment on above: Performed By: #### L 503.6005, L500.2500, L100.0500 ####[facility] [address] [place], [address] GFR/1.73 sq M.predicted among non-blacks MDRD (S/P/Bld) [Vol rate/Area] 47 mL/min/{1.73_m2} Low >[address] [facility] Comment on above: Result Comment: Non- GFR Calc Performed By: #### L 503.6005, L500.2500, L100.0500 ####[facility] [address] [place], [address] Glucose [Mass/Vol] 125 mg/dL High 74-106 [facility] Comment on above: Result Comment: Fast ing Glucose result from 100 to 125 mg/dLsuggests IMPAIRED HOMEOSTASIS per A.D.A. criteria. Performed By: #### L 503.6005, L500.2500, L100.0500 ####[facility] [address] [place], [address] Potassium [Moles/Vol] 3.6 mmol/L Normal 3.5-5.1 [facility] Comment on above: Performed By: #### L 503.6005, L500.2500, L100.0500 ####[facility] [address] [place], [address] Sodium [Moles/Vol] 140 mmol/L Normal 136-145 [facility] Comment on above: Performed By: #### L 503.6005, L500.2500, L100.0500 ####[facility] [address] [place], [address] Urea nitrogen [Mass/Vol] 22 mg/dL High 7-[address] [facility] Comment on above: Performed By: #### L 503.6005, L500.2500, L100.0500 ####[facility] [address] [place], [address] CBC-Complete Blood Cnt No Di ffon 01-26-2024 Erythrocyte distribution width (RBC) [Ratio] 13.4 % Normal 11.6-14.[address] [facility] Comment on above: Performed By: #### L 503.6005, L500.2500, L100.0500 ####[facility] [address] [place], [address] Hematocrit (Bld) [Volume fraction] 44.4 % Normal 40-[address] [facility] Comment on above: Performed By: #### L 503.6005, L500.2500, L100.0500 ####[facility] [address] [place], [address] Hemoglobin (Bld) [Mass/Vol] 14.7 g/dL Normal 13.0-16.[address] [facility] Comment on above: Performed By: #### L 503.6005, L500.2500, L100.0500 ####[facility] [address] [place], [address] MCH (RBC) [Entitic mass] 31.5 pg Normal 27.0-32.[address] [facility] Comment on above: Performed By: #### L 503.6005, L500.2500, L100.0500 ####[facility] [address] [place], [address] MCHC (RBC) [Mass/Vol] 33.1 g/dL Normal 32-36 [facility] Comment on above: Performed By: #### L 503.6005, L500.2500, L100.0500 ####[facility] [address] [place], [address] MCV (RBC) [Entitic vol] 95.3 fL High 80-[address] [facility] Comment on above: Performed By: #### L 503.6005, L500.2500, L100.0500 ####[facility] [address] [place], [address] Platelet mean volume (Bld) [Entitic vol] 8.7 fL Normal 6.2-12.[address] [facility] Comment on above: Performed By: #### L 503.6005, L500.2500, L100.0500 ####[facility] [address] [place], [address] Platelets (Bld) [#/Vol] 282 10*3/uL Normal 150-[address] [facility] Comment on above: Performed By: #### L 503.6005, L500.2500, L100.0500 ####[facility] [address] [place], [address] RBC (Bld) [#/Vol] 4.66 10*6/uL Normal 4.6-6.2 [facility] Comment on above: Performed By: #### L 503.6005, L500.2500, L100.0500 ####[facility] [address] [place], [address] RDW SD 47.0 fl High 35.1-43.[address] [facility] Comment on above: Performed By: #### L 503.6005, L500.2500, L100.0500 ####[facility] [address] [place], [address] WBC (Bld) [#/Vol] 10.7 10*3/uL Normal 4.4-11.0 [facility] Comment on above: Performed By: #### L 503.6005, L500.2500, L100.0500 ####[facility] [address] [place], [place], [address] Emergency Department Summary on 01-26-2024 Emergency Department Summary Normal [facility] Lactic Acidon 01-26-2024 Lactate [Moles/Vol] 1.8 mmol/L Normal 0.4-1.9 [facility] Comment on above: Order Comment: Y Performed By: #### L 503.6005, L500.2500, L100.0500 ####[facility] [address] 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 PROMINENT PREPATELLAR BURSITIS. MILD OSTEOARTHRITIS. Needle Maker: [facility] [facility] Transcribe Date/Time: Jan 26 2024 1:16P Dictated by : CHELSEA CASTILLO MD This examination was interpreted and the report reviewed and electronically signed by: CHELSEA CASTILLO MD on Jan 27 2024 3:42PM EST [id number] Normal [facility] CNOVon 01-24-2024 CNOV Office Visit (ALBERTOWS ) -- FRAN PAREKH ([id number]) 1945 M Date Time Provider Department 01/24/24 12:40 PM MARILIA OROZCO During your visit today, we recorded the following information about you: Temperature Pulse Respiration Blood pressure 98.2 degrees 81/minute 16/minute 134/90 Weight 130.1 kg Marilia rOozco APRN.CNP 01/24/2024 1:38 PM Signed 01/24/2024 Patient [...] of skin of nose Dr. Chowdary in [place] Stage 3a chronic kidney disease (HCC) Venous [...] not taking: Reported on 12/19/2023) CPAP AutoPAP 10-37ozA3C. Mask per preference, tubing, filters, humidity. Lifetime Supplies. Dx: G47.33. Fax 30 day compliance report to [phone]. CPAP Please provide mask fitting. Pt with [...] LEG. 2 (more content not included)... Normal [facility] CNOVon 01-22-2024 CNOV Office Visit (FAMPWS ) -- FRAN PAREKH ([id number]) 1945 M Date Time Provider Department 01/22/24 11:20 AM [facility] During your visit today, we recorded [...] of skin of nose Dr. Chowdary in [place] Stage 3a chronic kidney disease (HCC) Venous insufficiency Previous Surgical History PAST SURGICAL HISTORY Procedure Laterality Date ARTHRP ACETBLR/PROX FEM PROSTC AGRFT/ALGRFT Right 06/03/2019 Hip replacement, total COLONOSCOPY FLX DX W/COLLJ SPEC WHEN PFRMD 04/21/11 Repeat 10 [id number] LASER GREENLIGHT prostate, [place] NEUROPLASTY AND/TRANSPOS MEDIAN [...] AN EMPTY STOMACH FOR THYROID CPAP AutoPAP 10-60kkU0M. Mask per preference, tubing, filters, humidity. Lifetime Supplies. Dx: G47.33. Fax 30 day compliance report to [phone]. CPAP Please provide mask fitting. Pt with [...] Take f (more content not included)... Normal [facility] 01-22-2024 [facility] Telephone (FAMWS) -- FRAN PAREKH ([id number]) 1945 M Date Time Provider Department 01/22/24 AGNES DEL ROSARIO [facility] During your visit today, we recorded [...] hour before dental procedure. - CPAP AutoPAP 10-47amJ7M. Mask per preference, tubing, filters, humidity. Lifetime Supplies. Dx: G47.33. Fax 30 day compliance report to [phone]. - CPAP Please provide mask fitting. Pt [...] 03/25/2009 Open fracture of distal phalangeal tuft [QVE680*08/31/2011 05/09/2014 Internal derangement of right knee [M23.91] [...] vei*10/23/2023 Ac (more content not included)... Normal [facility] CBC W Auto Differential pane l (Bld)on 01-19-2024 Basophils (Bld) [#/Vol] 0.04 10*3/uL [facility] Basophils/100 WBC (Bld) 0.4 % [facility] Differential cell count method Nom (Bld) Auto [facility] Eosinophils (Bld) [#/Vol] 0.20 10*3/uL [facility] Eosinophils/100 WBC (Bld) 1.9 % [facility] Erythrocyte distribution width (RBC) [Ratio] 13.6 % 11.5 - 15.0 % [facility] Hematocrit (Bld) [Volume fraction] 44.2 % 39.0 - 51.0 % [facility] Hemoglobin (Bld) [Mass/Vol] 14.5 g/dL 13.0 - 17.0 g/dL [facility] Immature granulocytes (Bld) [#/Vol] 0.03 10*3/uL [facility] Immature granulocytes/100 WBC (Bld) 0.3 % [facility] Interpretation and review of laboratory results Abnormal [facility] Lymphocytes (Bld) [#/Vol] 2.23 10*3/uL [facility] Lymphocytes/100 WBC (Bld) 21.6 % [facility] MCH (RBC) [Entitic mass] 31.7 pg 26.0 - 34.0 pg [facility] MCHC (RBC) [Mass/Vol] 32.8 g/dL 30.5 - 36.0 g/dL [facility] MCV (RBC) [Entitic vol] 96.7 fL 80.0 - 100.0 fL [facility] Monocytes (Bld) [#/Vol] 1.03 10*3/uL High NINF [facility] Monocytes/100 WBC (Bld) 10.0 % [facility] Neutrophils (Bld) [#/Vol] 6.78 10*3/uL [facility] Neutrophils/100 WBC (Bld) 65.8 % [facility] Nucleated RBC (Bld) [#/Vol] NINF [facility] Nucleated RBC/100 WBC (Bld) [Ratio] 0.0 % /100 WBC [facility] Platelet mean volume (Bld) [Entitic vol] 10.2 fL 9.0 - 12.7 fL [facility] Platelets (Bld) [#/Vol] 255 10*3/uL [facility] RBC (Bld) [#/Vol] 4.57 10*6/uL 4.20 - 6.00 m/uL [facility] WBC (Bld) [#/Vol] 10.31 10*3/uL [facility] Basophils (Bld) [#/Vol] 0.04 10*3/uL Normal <0.11 [facility] Comment on above: Order Comment: Speci men Type: BLOOD SPECIMENOrdering Facility: [facility] Address: [address] [place] [address] Performed By: #### 5 7021-8 ####[facility] LABCLIA [id number] [address] [place] Basophils/100 WBC (Bld) 0.4 % Normal [facility] Comment on above: Order Comment: Speci men Type: BLOOD SPECIMENOrdering Facility: [facility] Address: [address] [place] [address] Performed By: #### 5 7021-8 ####[facility] LABCLIA [id number] [place] [address] [place] Differential cell count method Nom (Bld) Auto Normal [facility] Comment on above: Order Comment: Speci men Type: BLOOD SPECIMENOrdering Facility: [facility] Address: [address] [place] [address] Performed By: #### 5 7021-8 ####[facility] LABCLIA [id number] [place] [address] [place] Eosinophils (Bld) [#/Vol] 0.20 10*3/uL Normal <0.46 [facility] Comment on above: Order Comment: Speci men Type: BLOOD SPECIMENOrdering Facility: [facility] Address: [address] [place] [address] Performed By: #### 5 7021-8 ####[facility] LABCLIA [id number] [place] [address] [place] Eosinophils/100 WBC (Bld) 1.9 % Normal [facility] Comment on above: Order Comment: Speci men Type: BLOOD SPECIMENOrdering Facility: [facility] Address: [address] [place] [address] Performed By: #### 5 7021-8 ####[facility] LABIA [id number] [place] [address] [place] Erythrocyte distribution width (RBC) [Ratio] 13.6 % Normal 11.5-15.0 [facility] Comment on above: Order Comment: Speci men Type: BLOOD SPECIMENOrdering Facility: [facility] Address: [address] [place] [address] Performed By: #### 5 7021-8 ####[facility] LABCLIA [id number] [place] [address] [place] Hematocrit (Bld) [Volume fraction] 44.2 % Normal 39.0-51.0 [facility] Comment on above: Order Comment: Speci men Type: BLOOD SPECIMENOrdering Facility: [facility] Address: [address] [place] [address] Performed By: #### 5 7021-8 ####[facility] LABCLIA [id number] [place] [address] [place] Hemoglobin (Bld) [Mass/Vol] 14.5 g/dL Normal 13.0-17.0 [facility] Comment on above: Order Comment: Speci men Type: BLOOD SPECIMENOrdering Facility: [facility] Address: [address] [place] [address] Performed By: #### 5 7021-8 ####[facility] LABCLIA [id number] [place] [address] [place] Immature granulocytes (Bld) [#/Vol] 0.03 10*3/uL Normal <0.10 [facility] Comment on above: Order Comment: Speci men Type: BLOOD SPECIMENOrdering Facility: [facility] Address: [address] [place] [address] Performed By: #### 5 7021-8 ####[facility] LABCLIA [id number] [place] [address] [place] Immature granulocytes/100 WBC (Bld) 0.3 % Normal [facility] Comment on above: Order Comment: Speci men Type: BLOOD SPECIMENOrdering Facility: [facility] Address: [address] [place] [address] Performed By: #### 5 7021-8 ####[facility] LABCLIA [id number] [place] [address] [place] Lymphocytes (Bld) [#/Vol] 2.23 10*3/uL Normal 1.00-4.00 [facility] Comment on above: Order Comment: Speci men Type: BLOOD SPECIMENOrdering Facility: [facility] Address: [address] [place], [place] [address] Performed By: #### 5 7021-8 ####[facility] LABIA [id number] [place] [address] [place] Lymphocytes/100 WBC (Bld) 21.6 % Normal [facility] Comment on above: Order Comment: Speci men Type: BLOOD SPECIMENOrdering Facility: [facility] Address: [address] [place] [address] Performed By: #### 5 7021-8 ####[facility] LABIA [id number] [place] [address] [place] MCH (RBC) [Entitic mass] 31.7 pg Normal 26.0-34.0 [facility] Comment on above: Order Comment: Speci men Type: BLOOD SPECIMENOrdering Facility: [facility] Address: [address] [place] [address] Performed By: #### 5 7021-8 ####[facility] LABIA [id number] [place] [address] [place] MCHC (RBC) [Mass/Vol] 32.8 g/dL Normal 30.5-36.0 [facility] Comment on above: Order Comment: Speci men Type: BLOOD SPECIMENOrdering Facility: [facility] Address: [address] [place] [address] Performed By: #### 5 7021-8 ####[facility] LABIA [id number] [place] [address] [place] MCV (RBC) [Entitic vol] 96.7 fL Normal 80.0-100.0 [facility] Comment on above: Order Comment: Speci men Type: BLOOD SPECIMENOrdering Facility: [facility] Address: [address] [place] [address] Performed By: #### 5 7021-8 ####[facility] LABIA [id number] [place] [address] [place] Monocytes (Bld) [#/Vol] 1.03 10*3/uL High <0.87 [facility] Comment on above: Order Comment: Speci men Type: BLOOD SPECIMENOrdering Facility: [facility] Address: [address] [place] [address] Performed By: #### 5 7021-8 ####[facility] LABCLIA [id number] [place] [address] [place] Monocytes/100 WBC (Bld) 10.0 % Normal [facility] Comment on above: Order Comment: Speci men Type: BLOOD SPECIMENOrdering Facility: [facility] Address: [address] [place] [address] Performed By: #### 5 7021-8 ####[facility] LABCLIA [id number] [place] [address] [place] Neutrophils (Bld) [#/Vol] 6.78 10*3/uL Normal 1.45-7.50 [facility] Comment on above: Order Comment: Speci men Type: BLOOD SPECIMENOrdering Facility: [facility] Address: [address] [place] [address] Performed By: #### 5 7021-8 ####[facility] LABCLIA [id number] [place] [address] [place] Neutrophils/100 WBC (Bld) 65.8 % Normal [facility] Comment on above: Order Comment: Speci men Type: BLOOD SPECIMENOrdering Facility: [facility] Address: [address] [place] [address] Performed By: #### 5 7021-8 ####[facility] LABCLIA [id number] [place] [address] [place] Nucleated RBC (Bld) [#/Vol] 10*3/uL Normal <0.01 [facility] Comment on above: Order Comment: Speci men Type: BLOOD SPECIMENOrdering Facility: [facility] Address: [address] [place] [address] Performed By: #### 5 7021-8 ####[facility] LABCLIA [id number] [place] [address] [place] Nucleated RBC/100 WBC (Bld) [Ratio] 0.0 /100 WBC Normal [facility] Comment on above: Order Comment: Speci men Type: BLOOD SPECIMENOrdering Facility: [facility] Address: [address] [place] [address] Performed By: #### 5 7021-8 ####[facility] LABIA [id number] [place] [address] [place] Platelet mean volume (Bld) [Entitic vol] 10.2 fL Normal 9.0-12.7 [facility] Comment on above: Order Comment: Speci men Type: BLOOD SPECIMENOrdering Facility: [facility] Address: [address] [place] [address] Performed By: #### 5 7021-8 ####[facility] LABIA [id number] [place] [address] [place] Platelets (Bld) [#/Vol] 255 10*3/uL Normal 150-400 [facility] Comment on above: Order Comment: Speci men Type: BLOOD SPECIMENOrdering Facility: [facility] Address: [address] [place] [address] Performed By: #### 5 7021-8 ####[facility] LABCLIA [id number] [place] [address] [place] RBC (Bld) [#/Vol] 4.57 10*6/uL Normal 4.20-6.00 [facility] Comment on above: Order Comment: Speci men Type: BLOOD SPECIMENOrdering Facility: [facility] Address: [address] [place] [address] Performed By: #### 5 7021-8 ####[facility] LABCLIA [id number] [place] [address] [place] WBC (Bld) [#/Vol] 10.31 10*3/uL Normal 3.70-11.00 [facility] Comment on above: Order Comment: Speci men Type: BLOOD SPECIMENOrdering Facility: [facility] Address: [address] [place] [address] Performed By: #### 5 7021-8 ####[facility] LABCLIA [id number] [address] [place] CNOVon 01-19-2024 CNOV Office Visit (ALBERTOWS ) -- FRAN PAREKH ([id number]) 1945 M Date Time Provider Department 01/19/24 9:40 AM MARILIA OROZCO During your visit today, we recorded the following information about you: Temperature Pulse Respiration Blood pressure 98 degrees 84/minute 18/minute 132/94 Weight 128 kg Marilia Orozco APRN.[facility] 01/29/2024 8:11 AM Signed 01/19/2024 Patient presents [...] ice RADIATION: knee down to landry Saw coding quality coordinator yesterday who ordered an xray which has [...] of skin of nose Dr. Chowdary in [place] Stage 3a chronic kidney disease (HCC) Venous [...] not taking: Reported on 12/19/2023) CPAP AutoPAP [id number]. Mask per preference, tubing, filters, humidity. Lifetime Supplies. Dx: G47.33. Fax 30 day compliance report to [phone]. CPAP Please provide mask fitting. Pt with [...] Never done (more content not included)... Normal [facility] DVT LOWER RTon 01-19-2024 US DVT LOWER [...] of unclear etiology. Clinical correlation is recommended. Needle Maker: WILNER Transcribe Date/Time: Jan 19 2024 6:56P Dictated by : DANIELLE VILLASENOR MD This examination was interpreted and the report reviewed and electronically signed by: DANIELLE VILLASENOR MD on Jan 19 2024 6:58PM EST [id number] [facility] US Lower extremity vein - [facility] 01-19-2024 IMPRESSION: Negative study for proximal DVT in the right lower extremity. Negative study for calf DVT in the right lower extremity. Negative study for superficial thrombophlebitis in the imaged segments of the right lower extremity. Moderate right lower extremity edema of unclear etiology. Clinical correlation is recommended. Needle Maker: WILNER Transcribe Date/Time: Jan 19 2024 6:56P Dictated by : DANIELLE VILLASENOR MD This examination was interpreted and the report reviewed and electronically signed by: DANIELLE VILLASENOR MD on Jan 19 2024 6:58PM [facility] * * *Final Report* * * DATE OF EXAM: Jan 19 2024 6:45PM [facility] [place] D[place] LOWER RT / [...] spontaneous respirophasic flow. Normal response to augmentation. [facility] Provider, Priscilla [facility]ajalThe [facility]24 * * *Final Report* * * DATE OF EXAM: Jan 19 2024 6:45PM [facility] [place] DVT LOWER RT / [...] of unclear etiology. Clinical correlation is recommended. Needle Maker: WILNER Transcribe Date/Time: Jan 19 2024 6:56P Dictated by : DANIELLE VILLASENOR MD This examination was interpreted and the report reviewed and electronically signed by: DANIELLE VILLASENOR MD on Jan 19 2024 6:58PM EST [facility] Radiology Study observation (narrative) [facility] US Lower extremity vein - ri ghtOrdered By: Ccf Provider on 01-19-2024 [facility] CNOVon 01-18-2024 CNOV Office Visit (UCWSTR ) -- FRAN PAREKH ([id number]) 1945 M Date Time Provider Department 01/18/24 12:00 PM JOLEEN MUNOZ [facility] During your visit today, we recorded the following information about you: Temperature Pulse Respiration Blood pressure 97.4 degrees 79/minute 18/minute 126/76 Weight 130.2 kg Joleen Munoz APRN.[facility] 01/18/2024 12:13 PM Signed Patient is [...] hour before dental procedure. - CPAP AutoPAP [id number]. Mask per preference, tubing, filters, humidity. Lifetime Supplies. Dx: G47.33. Fax 30 day compliance report to [phone]. - CPAP Please provide mask fitting. Pt [...] 03/25/2009 Open fracture of distal phalangeal tuft [WSD273*08/31/2011 05/09/2014 Internal derangement of right knee [M23.91] [...] embolism wit (more content not included)... Normal [facility] CNOV Office Visit (PUFAMO ) -- FRAN PAREKH ([id number]) 1945 M Date Time Provider Department 01/18/24 [...] STOMACH FOR THYROIDDisp: 90 tabletRfl: 3 CPAPAutoPAP 10-31kgR3I. Mask per preference, tubing, filters, humidity. Lifetime Supplies. Dx: G47.33. Fax 30 day compliance report to [phone].Disp: 1 EachRfl: 999 CPAPPlease provide mask fitting. [...] of skin of nose Dr. Chowdary in [place] Stage 3a chronic kidney disease (HCC) Venous [...] other (Myoc (more content not included)... Normal [facility] XR KNEE 4V AP/PA BOTH+LAT/ME R RTon [...] No fracture or joint effusion. IMPRESSION: Osteoarthrosis Needle Maker: WILNER Transcribe Date/Time: Jan 20 2024 7:28A Dictated by : ALEXANDER LUNDBERG MD This examination was interpreted and the report reviewed and electronically signed by: ALEXANDER LUNDBERG MD on Jan 20 2024 7:29AM EST [id number] Normal [facility] [id number] 01-17-2024 [id number] HNO ID: [id number] Author: YOGESH FORMAN PT Service: ? Author Type: Physical Therapist Type: [id number] Filed: 01/17/2024 23:01 Note Text: [facility] Therapy Physical Therapy Plan of Care Certification Patient Name: Fran Parekh : 1945 [facility] #: [id number] Date: 01/17/2024 To: Agnes Del Rosario,* From [...] fall risk. - Partially MET, will continue [place] in home exercise program including cardiovascular exercise. [...] Patient to be seen for Therapeutic exercise (16897), Neuromuscular re-education (88049), Therapeutic activities (21630), Self-nursing home management (10514), Gait Training (37166), Patient/Family/Caregiver Education, Body Mechanics Training, General Conditioning PLAN FOR NEXT VISIT: Continue with balance training, gait training, and LE functional strengthening. For further details regarding this patient refer to the Physical Therapy electronically documented visit dated 01/17/2024. Provider Attestation I have reviewed the treatment plan for Fran Parekh, [facility]# [id number] for the period of 01/17/24 -- 02/14/24, established on 01/17/2024. Signature certifies the need for therapy services. Normal [facility] CNTHERAPYon 01-17-2024 CNTHERAPY OT/PT/Speech Visit ( PTWS) -- IGLESIAFRAN Mueller ([id number]) 1945 M Date Time Provider Department 01/17/24 3:15 PM YOGESH FORMAN PTADIA Date Time Provider Department Center 01/17/2024 3:15 PM [id number], BRENT PTWS Mil Singletary Reason for Visit: [...] hour before dental procedure. - CPAP AutoPAP [id number]. Mask per preference, tubing, filters, humidity. Lifetime Supplies. Dx: G47.33. Fax 30 day compliance report to [phone]. - CPAP Please provide mask fitting. Pt [...] % (flush) 10 mL (BD POSIFLUSH) Normal [facility] CNOVon 01-16-2024 CN Office Visit (CARD ) -- FRAN PAREKH ([id number]) 1945 M Date Time Provider Department 01/16/24 1:00 PM [facility] During your visit today, we recorded the following information about you: Referring Provider: VICTOR MANUEL BURROWS [[id number]] Allergies As of Date: 01/16/2024 Noted Allergy Reaction NORVASC (AMLODIPINE BESYLATE) 09/14/2016 7 - Swelling Comments: pedal edema VENOM-WASP 01/14/2005 7 - Swelling ZITHROMAX (AZITHROMYCIN) 01/14/2005 9 - Itching Date Reviewed: 01/16/2024 Reviewed by: Sonya Noriega RN - Fully Assessed Visit Diagnoses: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 - CPAP AutoPAP 10-46lhM7G. Mask per preference, tubing, filters, humidity. Lifetime Supplies. Dx: G47.33. Fax 30 day compliance report to [phone]. - CPAP Please provide mask fitting. Pt [...] 03/25/2009 Open fracture of distal phalangeal tuft [ODF415*08/31/2011 05/09/2014 Internal derangement of right knee [M23.91] [...] RVF (right (more content not included)... Normal [facility] ECHOon 01-16-2024 CONCLUSIONS: - Technically difficult [...] [facility] Echocardiography Report: Transthoracic Echo [facility] Office Date of service: 01/16/2024 1:10:40 PM GRINDER Ordering physician: VICTOR MANUEL BURROWS Indication: H/O [...] or not interrogated. [facility] Echocardiography Echocardiography Rep ort: Transthoracic Echo [facility] Date of service: 01/16/2024 1:10:40 PM GRINDER Ordering physician: VICTOR MANUEL BURROWS Indication: H/O [...] * * Final * * * CC [facility] [facility] : [id number] [facility]den[facility] -- FRAN PAREKH ([id number]) 1945 M Date Time Provider Department 01/10/24 [facility] During your visit today, we recorded the following information about you: aHrriet Grider RN 01/10/2024 11:54 AM Signed Patient [...] 01/11/2024 3:43 PM Signed CD READY FOR JUNIOR BUSINESS ANALYST AT [facility] for pt Allergies As of Date: [...] hour before dental procedure. - CPAP AutoPAP [id number]. Mask per preference, tubing, filters, humidity. Lifetime Supplies. Dx: G47.33. Fax 30 day compliance report to [phone]. - CPAP Please provide mask fitting. Pt [...] 03/25/2009 Open fracture of distal phalangeal tuft [PAD509*08/31/2011 05/09/2014 Internal derangement of right knee [M23.91] [...] (HCC) [N18.3 (more content not included)... Normal [facility] CNTHERAPYon 01-10-2024 CNTHERAPY OT/PT/Speech Visit ( PTWS) -- FRAN PAREKH ([id number]) 1945 M Date Time Provider Department 01/10/24 10:00 AM YOGESH FORMAN PTWS Date Time Provider Department Center 01/10/2024 10:00 AM [id number], BRENT PTWS Mil Singletary Reason for Visit: [...] hour before dental procedure. - CPAP AutoPAP 10-05hpN8C. Mask per preference, tubing, filters, humidity. Lifetime Supplies. Dx: G47.33. Fax 30 day compliance report to [phone]. - CPAP Please provide mask fitting. Pt [...] % (flush) 10 mL (BD POSIFLUSH) Normal [facility] CNTHERAPYon 01-08-2024 CNTHERAPY OT/PT/Speech Visit ( PTWS) -- FRAN PAREKH ([id number]) 1945 M Date Time Provider Department 01/08/24 9:30 AM TABBY GIBBS Date Time Provider Department Center 01/08/2024 9:30 AM [id number], MARIAH PTAIDA Singletary Reason for Visit: Physical [...] hour before dental procedure. - CPAP AutoPAP [id number]. Mask per preference, tubing, filters, humidity. Lifetime Supplies. Dx: G47.33. Fax 30 day compliance report to [phone]. - CPAP Please provide mask fitting. Pt [...] % (flush) 10 mL (BD POSIFLUSH) Normal [facility] CNTHERAPYon 01-04-2024 CNTHERAPY OT/PT/Speech Visit ( PTWS) -- FRAN PAREKH ([id number]) 1945 M Date Time Provider Department 01/04/24 3:45 PM YOGESH FORMAN PTAIDA Date Time Provider Department Center 01/04/2024 3:45 PM [id number], BRENT PTWS Mil Singletary Reason for Visit: [...] hour before dental procedure. - CPAP AutoPAP [id number]. Mask per preference, tubing, filters, humidity. Lifetime Supplies. Dx: G47.33. Fax 30 day compliance report to [phone]. - CPAP Please provide mask fitting. Pt [...] defects corresponding to prior known pulmonary embolism. 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 Needle Maker: [facility] Transcribe Date/Time: Nov 22 2023 2:12P Dictated by : SHELBY KELLER MD This examination was interpreted and the report reviewed and electronically signed by: SHELBY KELLER MD on Nov 22 2023 2:18PM EST [facility] * * *Final Report* * * [...] Bilateral few mismatched defects. Few matched defects. [facility] Provider, Priscilla Rodgers - 11/22/2023 * [...] defects corresponding to prior known pulmonary embolism. Needle Maker: [facility] Transcribe Date/Time: Nov 22 2023 2:12P Dictated by : SHELBY KELLER MD This examination was interpreted and the report reviewed and electronically signed by: SHELBY KELLER MD on Nov 22 2023 2:18PM EST [facility] Radiology Study observation (narrative) [facility] NM Lung Ventilation and Perf usionOrdered By: [facility] Provider on 11-22-2023 [facility] CNOVon 11-09-2023 CNOV Office Visit (PUFAMO ) -- FRAN PAREKH ([id number]) 1945 M Date Time Provider Department 11/09/23 11:00 AM VICTOR MANUEL BURROWS During your visit [...] exertion for the prior week or so. [place] acute shortness of breath and severe lightheadedness [...] of skin of nose Dr. Chowdary in [place] Stage 3a chronic kidney disease (HCC) Venous insufficiency HTN DM Type 2 Pulmonary Embolism/DVT Lung Nodules Social History Leads sedentary lifestyle getting up from chair to go to the restroom, eat, etc. Swam recreationally until about a year ago. He denies surgery in the last 3 months, trauma, immobilization, travel, family history of clotting disorder. Does fly to [place] about 3 times/year, last trip around [place]. Never smoked, IV, drugs, or alcohol. Family [...] lung cancer in his father. 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 [...] on jen (more content not included)... Normal [facility] Basic metabolic 2000 panelon 10-27-2023 Anion gap [Moles/Vol] 13 mmol/L Normal 8-15 [facility] Comment on above: Order Comment: Tiffanie rollins Type: BLOOD SPECIMEN Ordering Facility: [facility] Address: [address] [place] [address] Performed By: #### P TTAC, 95720-7 #### [facility] CLIA [id number] [address] [place] [address] [place] Calcium [Mass/Vol] 9.0 mg/dL Normal 8.5-10.2 [facility] Comment on above: Order Comment: Tiffanie rollins Type: BLOOD SPECIMEN Ordering Facility: [facility] Address: [address] [place] [address] Performed By: #### P TTAC, 23259-0 #### [facility] CLIA [id number] [place] [address] [place] Chloride [Moles/Vol] 107 mmol/L Normal 98-107 [facility] Comment on above: Order Comment: Tiffanie rollins Type: BLOOD SPECIMEN Ordering Facility: [facility] Address: [address] [place] [address] Performed By: #### P TTAC, 50106-9 #### [facility] CLIA [id number] [address] [place] [address] [place] CO2 [Moles/Vol] 20 mmol/L Low 22-30 [facility] Comment on above: Order Comment: Tiffanie rollins Type: BLOOD SPECIMEN Ordering Facility: [facility] Address: [address] [place] [address] Performed By: #### P TTAC, 11753-0 #### [facility] CLIA [id number] [address] [place] [id number] [place] Creatinine [Mass/Vol] 1.32 mg/dL High 0.73-1.22 [facility] Comment on above: Order Comment: Tiffanie rollins Type: BLOOD SPECIMEN Ordering Facility: [facility] Address: [address] [place] [address] Performed By: #### P TTAC, 13891-9 #### [facility] CLIA [id number] [address] [place] [address] [place] Creatinine and Glomerular filtration rate.predicted panel (S/P/Bld) 55 mL/min/1.73m??? Low >=60 [facility] Comment on above: Order Comment: Tiffanie rollins Type: BLOOD SPECIMEN Ordering Facility: [facility] Address: [address] [place] [address] Result Comment: Danika mated Glomerular Filtration Rate [...] actual GFR. Performed By: #### P TTAC, 24087-3 #### [facility] CLIA [id number] [place] [address] [place] Glucose [Mass/Vol] 103 mg/dL High 74-99 [facility] Comment on above: Order Comment: Tiffanie rollins Type: BLOOD SPECIMEN Ordering Facility: [facility] Address: [address] [place] [address] Result Comment: The [place] [employer] Association (ADA) provides guidance for cutoff [...] Standards of Medical Care in Diabetes 2016, [place] [employer]. Diabetes Care. 2016.39(Suppl 1). Performed By: #### P TTAC, 84691-7 #### [facility] CLIA [id number] [address] [place] [address] [place] Potassium [Moles/Vol] 4.4 mmol/L Normal 3.7-5.1 [facility] Comment on above: Order Comment: Tiffanie rollins Type: BLOOD SPECIMEN Ordering Facility: [facility] Address: [address] [place] [address] Performed By: #### P TTAC, 01609-0 #### [facility] CLIA [id number] [address] [place] [address] [place] Sodium [Moles/Vol] 140 mmol/L Normal 136-144 [facility] Comment on above: Order Comment: Tiffanie rollins Type: BLOOD SPECIMEN Ordering Facility: [facility] Address: [address] [place] [address] Performed By: #### P TTAC, 48419-5 #### [facility] CLIA [id number] [address] [place] [address] [place] Urea nitrogen [Mass/Vol] 25 mg/dL High 9-24 [facility] Comment on above: Order Comment: Tiffanie rollins Type: BLOOD SPECIMEN Ordering Facility: [facility] Address: [address] [place] [address] Performed By: #### P TTAC, 77521-6 #### [facility] CLIA [id number] [address] [place] [address] [place] CNDSon 10-27-2023 CNDS HNO ID: [id number] Author: MARQUITA HARP MD Service: Hospital Medicine [...] This 78 years old male transferred from [facility] to our facility with acute hypoxic respiratory [...] Provider: Marquita Harp MD Primary Service: 4, [facility] PATIENT CONDITION AT DISCHARGE: Fair DISCHARGE [...] 11/09/2023 11:00 AM [facility] Name Admission (Discharged) from 10/23/[address] [facility] Rosina Mil Start of Care -- they [...] Thank you. DME = [employer] CPAP AutoPAP [id number]. Mask per preference, tubing, filters, humidity. Lifetime Supplies. Dx: G47.33. Fax 30 day compliance report to [phone]. gabapentin 300 mg capsule Commonly known as: NEURONTIN hydroCHLOROthiazide 25 mg tablet Take 1 tablet by mouth once daily. levothyroxine 125 mcg tablet Commonly known as: SYNTHROID TAKE 1 TAB (more content not included)... Normal [facility] PT panel Coag (PPP)on 2023 INR Coag (PPP) [Relative time] 1.2 {INR} Normal 0.9-1.3 [facility] Comment on above: Order Comment: Speci men Type: BLOOD SPECIMEN Ordering Facility: [facility] Address: [address] [place] [address] Result Comment: Yvonne min K Antagonist (VKA) Therapeutic Range: INR 2 to 3 (Target INR of 2.5) Note: For patients treated with VKA drugs, such as warfarin, the [place] [employer] Physicians 2012 Guideline recommends [...] Chest 2012, 141:7S-47S Saray RA et al. [facility] 2017, 70: 252-289 Performed By: #### P TTAC #### [facility] CLIA [id number] [address] [place] [address] [place] PT Coag (PPP) [Time] 12.8 s Normal 9.7-13.0 [facility] Comment on above: Order Comment: Tiffanie rollins Type: BLOOD SPECIMEN Ordering Facility: [facility] Address: [address] [place] [address] Performed By: #### P TTAC #### [facility] CLIA [id number] [address] [place] [address] [place] Basic metabolic 2000 panelon 10-26-2023 Anion gap [Moles/Vol] 13 mmol/L Normal 8-15 [facility] Comment on above: Order Comment: Tiffanie rollins Type: BLOOD SPECIMEN Ordering Facility: [facility] Address: [address] [place] [address] Performed By: #### P TTAC #### [facility] CLIA [id number] [address] [place] [address] [place] Calcium [Mass/Vol] 8.9 mg/dL Normal 8.5-10.2 [facility] Comment on above: Order Comment: Speci men Type: BLOOD SPECIMEN Ordering Facility: [facility] Address: [address] [place] [address] Performed By: #### P TTAC #### [facility] CLIA [id number] [address] [place] [address] [place] Chloride [Moles/Vol] 105 mmol/L Normal 98-107 [facility] Comment on above: Order Comment: Speci men Type: BLOOD SPECIMEN Ordering Facility: [facility] Address: [address] [place] [address] Performed By: #### P TTAC #### [facility] CLIA [id number] [address] [place] [address] [place] CO2 [Moles/Vol] 23 mmol/L Normal 22-30 [facility] Comment on above: Order Comment: Speci men Type: BLOOD SPECIMEN Ordering Facility: [facility] Address: [address] [place] [address] Performed By: #### P TTAC #### [facility] CLIA [id number] [address] [place] [address] [place] Creatinine [Mass/Vol] 1.34 mg/dL High 0.73-1.22 [facility] Comment on above: Order Comment: Speci men Type: BLOOD SPECIMEN Ordering Facility: [facility] Address: [address] [place] [address] Performed By: #### P TTAC #### [facility] CLIA [id number] [address] [place] [address] [place] Creatinine and Glomerular filtration rate.predicted panel (S/P/Bld) 54 mL/min/1.73m??? Low >=60 [facility] Comment on above: Order Comment: Speci men Type: BLOOD SPECIMEN Ordering Facility: [facility] Address: [address] [place] [address] Result Comment: Danika mated Glomerular Filtration Rate [...] #### P TTAC #### [facility] CLIA [id number] [address] [place] [address] [place] Glucose [Mass/Vol] 118 mg/dL High 74-99 [facility] Comment on above: Order Comment: Tiffanie rollins Type: BLOOD SPECIMEN Ordering Facility: [facility] Address: [address] [place] [address] Result Comment: The [place] Diabetes [employer] (ADA) provides guidance for cutoff [...] Standards of Medical Care in Diabetes 2016, [place] [employer]. Diabetes Care. 2016.39(Suppl 1). Performed By: #### P TTAC #### [facility] CLIA [id number] [address] [place] [address] [place] Potassium [Moles/Vol] 4.3 mmol/L Normal 3.7-5.1 [facility] Comment on above: Order Comment: Tiffanie rollins Type: BLOOD SPECIMEN Ordering Facility: [facility] Address: [address] [place] [address] Performed By: #### P TTAC #### [facility] CLIA [id number] [address] [place] [address] [place] Sodium [Moles/Vol] 141 mmol/L Normal 136-144 [facility] Comment on above: Order Comment: Tiffanie rollins Type: BLOOD SPECIMEN Ordering Facility: [facility] Address: [address] [place] [address] Performed By: #### P TTAC #### [facility] CLIA [id number] [address] [place] [address] [place] Urea nitrogen [Mass/Vol] 24 mg/dL Normal 9-24 [facility] Comment on above: Order Comment: Speci men Type: BLOOD SPECIMEN Ordering Facility: [facility] Address: [address] [place] [address] Performed By: #### P TTAC #### [facility] CLIA [id number] [address] [place] [address] [place] CBC panel Auto (Bld)on 10-25 Erythrocyte distribution width (RBC) [Ratio] 14.6 % Normal 11.5-15.0 [facility] Comment on above: Order Comment: Speci men Type: BLOOD SPECIMENOrdering Facility: [facility] Address: [address] [place] [address] Performed By: #### 5 8410-2 ####[facility] [id number] [address] [facility] Hematocrit (Bld) [Volume fraction] 41.8 % Normal 39.0-51.0 [facility] Comment on above: Order Comment: Speci men Type: BLOOD SPECIMENOrdering Facility: [facility] Address: [address] [place] [address] Performed By: #### 5 8410-2 ####[facility] [id number] [address] [place] Hemoglobin (Bld) [Mass/Vol] 14.6 g/dL Normal 13.0-17.0 [facility] Comment on above: Order Comment: Speci men Type: BLOOD SPECIMENOrdering Facility: [facility] Address: [address] [place] [address] Performed By: #### 5 8410-2 ####[facility] [id number] [address] [place] MCH (RBC) [Entitic mass] 33.1 pg Normal 26.0-34.0 [facility] Comment on above: Order Comment: Speci men Type: BLOOD SPECIMENOrdering Facility: [facility] Address: [facility] [place] [address] Performed By: #### 5 8410-2 ####[facility] [id number] [place] [address] [place] MCHC (RBC) [Mass/Vol] 34.9 g/dL Normal 30.5-36.0 [facility] Comment on above: Order Comment: Speci men Type: BLOOD SPECIMENOrdering Facility: [facility] Address: [address] [place] [address] Performed By: #### 5 8410-2 ####[facility] [id number] [address] [place] MCV (RBC) [Entitic vol] 94.8 fL Normal 80.0-100.0 [facility] Comment on above: Order Comment: Speci men Type: BLOOD SPECIMENOrdering Facility: [facility] Address: [address] [place] [address] Performed By: #### 5 8410-2 ####[facility] [id number] [place] [address] [place] Nucleated RBC (Bld) [#/Vol] 10*3/uL Normal <0.01 [facility] Comment on above: Order Comment: Speci men Type: BLOOD SPECIMENOrdering Facility: [facility] Address: [address] [place] [address] Performed By: #### 5 8410-2 ####[facility] [id number] [place] [address] [place] Platelet mean volume (Bld) [Entitic vol] 9.7 fL Normal 9.0-12.7 [facility] Comment on above: Order Comment: Speci men Type: BLOOD SPECIMENOrdering Facility: [facility] Address: [address] [place] [address] Performed By: #### 5 8410-2 ####[facility] [id number] [place] [address] [place] Platelets (Bld) [#/Vol] 165 10*3/uL Normal 150-400 [facility] Comment on above: Order Comment: Speci men Type: BLOOD SPECIMENOrdering Facility: [facility] Address: [address] [place] [address] Performed By: #### 5 8410-2 ####[facility] [id number] [place] [id number] [place] RBC (Bld) [#/Vol] 4.41 10*6/uL Normal 4.20-6.00 [facility] Comment on above: Order Comment: Speci men Type: BLOOD SPECIMENOrdering Facility: [facility] Address: [address] [place] [address] Performed By: #### 5 8410-2 ####[facility] [id number] [place] [id number] [facility] [place] WBC (Bld) [#/Vol] 10.66 10*3/uL Normal 3.70-11.00 [facility] Comment on above: Order Comment: Speci men Type: BLOOD SPECIMENOrdering Facility: [facility] Address: [address] [place] [address] Performed By: #### 5 8410-2 ####[facility] [id number] [place] [id number] [facility] CONSULT PROGon 10-26-2023 CONSULT PROG HNO ID: [id number] Author: ANTHONY VIRAMONTES RPh Service: Pharmacy Author [...] of this patient. Anthony Viramontes RPh Normal [facility] CONSULT PROG HNO ID: [id number] Author: RADHA MELGAR RPh Service: Pharmacy Author [...] of bleeding or bruising Additional data elements ([facility]) Is INR less than 1.7? Yes Is [...] Pharmacist October 26, 2023 2:45 PM Normal [facility] PT panel Coag (PPP)on 2023 INR Coag (PPP) [Relative time] 1.0 {INR} Normal 0.9-1.3 [facility] Comment on above: Order Comment: Speci men Type: VENOUS BLOOD SPECIMEN Ordering Facility: [facility] Address: [address] [place] [address] Result Comment: Yvonne min K Antagonist (VKA) Therapeutic Range: INR 2 to 3 (Target INR of 2.5) Note: For patients treated with VKA drugs, such as warfarin, the [employer] [place] [employer]icians 2012 Guideline recommends [...] Chest 2012, 141:7S-47S Saray WISE et al. [facility] 2017, 70: 252-289 Performed By: #### 2 4344-4 #### [facility] CLIA [id number] [address] [place] [address] [place] PT Coag (PPP) [Time] 11.6 s Normal 9.7-13.0 [facility] Comment on above: Order Comment: Tiffanie rollins Type: VENOUS BLOOD SPECIMEN Ordering Facility: [facility] Address: [address] [place] [address] Performed By: #### 2 4344-4 #### [facility] CLIA [id number] [address] [place] [address] [place] PTT, ANTICOAGULANT THERAPYon 10-26-2023 aPTT Coag (PPP) [Time] 31.8 s Normal 23.0-32.4 [facility] Comment on above: Order Comment: Tiffanie rollins Type: BLOOD SPECIMEN Ordering Facility: [facility] Address: [address] [place] [address] Performed By: #### P TTA #### [facility] CLIA [id number] [address] [place] [address] [place] aPTT Coag (PPP) [Time] 60.0 s High 23.0-32.4 [facility] Comment on above: Order Comment: Speci men Type: VENOUS BLOOD SPECIMEN Ordering Facility: [facility] Address: [address] [place] [address] Performed By: #### 2 4344-4 #### [facility] CLIA [id number] [place] aPTT Coag (PPP) [Time] 83.6 s High 23.0-32.4 [facility] Comment on above: Order Comment: Speci men Type: VENOUS BLOOD SPECIMEN Ordering Facility: [facility] Address: [address] [place], [place] [address] Performed By: #### 2 4344-4 #### [facility] CLIA [id number] [address] [place] [id number] [place] THERAPY NTon 10-26-2023 THERAPY NT HNO ID: [id number] Author: DEVYN MOYER PT Service: Physical Therapy Author Type: Physical Therapist Type: Therapy (PT/OT/Speech/Resp) Filed: 10/26/2023 18:46 Note Text: Physical Therapy Evaluation Summary SERVICE DATE: 10/26/2023 SERVICE TIME: 1715 to 1745 ROOM: [place] [address] PT 6 Clicks Score: 21 DISCHARGE RECOMMENDATIONS [...] Reduced mobility-other TREATMENT INTERVENTIONS Evaluation, Gait Training (00330) Timed Code Treatment (minutes): 10 Skilled Treatment [...] October 26, 2023 TIME: 6:46 PM Normal [facility] Basic metabolic 2000 panelon 10-25-2023 Anion gap [Moles/Vol] 10 mmol/L Normal 8-15 [facility] Comment on above: Order Comment: Speci men Type: VENOUS BLOOD SPECIMEN Ordering Facility: [facility] Address: [address] [place] [address] Performed By: #### 2 4344-4 #### [facility] CLIA [id number] [address] [place] [address] [place] Calcium [Mass/Vol] 8.7 mg/dL Normal 8.5-10.2 [facility] Comment on above: Order Comment: Speci men Type: VENOUS BLOOD SPECIMEN Ordering Facility: [facility] Address: [address] [place] [address] Performed By: #### 2 4344-4 #### [facility] CLIA [id number] [place] [address] [place] Chloride [Moles/Vol] 105 mmol/L Normal 98-107 [facility] Comment on above: Order Comment: Speci men Type: VENOUS BLOOD SPECIMEN Ordering Facility: [facility] Address: [address] [place] [address] Performed By: #### 2 4344-4 #### [facility] CLIA [id number] [place] [address] [place] CO2 [Moles/Vol] 27 mmol/L Normal 22-30 [facility] Comment on above: Order Comment: Speci men Type: VENOUS BLOOD SPECIMEN Ordering Facility: [facility] Address: [address] [place] [address] Performed By: #### 2 4344-4 #### [facility] CLIA [id number] [address] [place] [address] [place] Creatinine [Mass/Vol] 1.64 mg/dL High 0.73-1.22 [facility] Comment on above: Order Comment: Speci men Type: VENOUS BLOOD SPECIMEN Ordering Facility: [facility] Address: [address] [place] [address] Performed By: #### 2 4344-4 #### [facility] CLIA [id number] [address] [place] [address] [place] Creatinine and Glomerular filtration rate.predicted panel (S/P/Bld) 42 mL/min/1.73m??? Low >=60 [facility] Comment on above: Order Comment: Speci men Type: VENOUS BLOOD SPECIMEN Ordering Facility: [facility] Address: [address] [place] [address] Result Comment: Danika mated Glomerular Filtration Rate [...] GFR. Performed By: #### 2 4344-4 #### [facility] CLIA [id number] [address] [place] [address] [place] Glucose [Mass/Vol] 107 mg/dL High 74-99 [facility] Comment on above: Order Comment: Tiffanie rollins Type: VENOUS BLOOD SPECIMEN Ordering Facility: [facility] Address: [address] [place] [address] Result Comment: The [place] [employer] (ADA) provides guidance for cutoff [...] Standards of Medical Care in Diabetes 2016, [place] [employer]. Diabetes Care. 2016.39(Suppl 1). Performed By: #### 2 4344-4 #### [facility] CLIA [id number] [address] [place] [address] [place] Potassium [Moles/Vol] 3.9 mmol/L Normal 3.7-5.1 [facility] Comment on above: Order Comment: Tiffanie rollins Type: VENOUS BLOOD SPECIMEN Ordering Facility: [facility] Address: [address] [place] [address] Performed By: #### 2 4344-4 #### [facility] CLIA [id number] [address] [place] [address] [place] Sodium [Moles/Vol] 142 mmol/L Normal 136-144 [employer] Comment on above: Order Comment: Ruthi men Type: VENOUS BLOOD SPECIMEN Ordering Facility: [facility] Address: [address] [place] [address] Performed By: #### 2 4344-4 #### [facility] CLIA [id number] [address] [place] [address] [place] Urea nitrogen [Mass/Vol] 24 mg/dL Normal 9-24 [facility] Comment on above: Order Comment: Speci men Type: VENOUS BLOOD SPECIMEN Ordering Facility: [facility] Address: [address] [place] [address] Performed By: #### 2 4344-4 #### [facility] CLIA [id number] [address] [place] [address] [place] CBC panel Auto (Bld)on 10-24 Erythrocyte distribution width (RBC) [Ratio] 14.4 % Normal 11.5-15.0 [facility] Comment on above: Order Comment: Speci men Type: BLOOD SPECIMENOrdering Facility: [facility] Address: [address] [place] [address] Performed By: #### 5 8410-2 ####[facility] [id number] [address] [place] Hematocrit (Bld) [Volume fraction] 42.2 % Normal 39.0-51.0 [facility] Comment on above: Order Comment: Speci men Type: BLOOD SPECIMENOrdering Facility: [facility] Address: [address] [place] [address] Performed By: #### 5 8410-2 ####[facility] [id number] [place] [address] [place] Hemoglobin (Bld) [Mass/Vol] 14.3 g/dL Normal 13.0-17.0 [facility] Comment on above: Order Comment: Speci men Type: BLOOD SPECIMENOrdering Facility: [facility] Address: [address] [place] [address] Performed By: #### 5 8410-2 ####[facility] [id number] [place] [address] [place] MCH (RBC) [Entitic mass] 32.3 pg Normal 26.0-34.0 [facility] Comment on above: Order Comment: Speci men Type: BLOOD SPECIMENOrdering Facility: [facility] Address: [address] [place] [address] Performed By: #### 5 8410-2 ####[facility] [id number] [place] [address] [place] MCHC (RBC) [Mass/Vol] 33.9 g/dL Normal 30.5-36.0 [facility] Comment on above: Order Comment: Speci men Type: BLOOD SPECIMENOrdering Facility: [facility] Address: [address] [place] [address] Performed By: #### 5 8410-2 ####[facility]ORY[facility]IA [id number] [place] [address] [place] MCV (RBC) [Entitic vol] 95.3 fL Normal 80.0-100.0 [facility] Comment on above: Order Comment: Speci men Type: BLOOD SPECIMENOrdering Facility: [facility] Address: [address] [place] [address] Performed By: #### 5 8410-2 ####[facility]ORYCLIA [id number] [place] [address] [place] Nucleated RBC (Bld) [#/Vol] 10*3/uL Normal <0.01 [facility] Comment on above: Order Comment: Speci men Type: BLOOD SPECIMENOrdering Facility: [facility] Address: [address] [place] [address] Performed By: #### 5 8410-2 ####[facility]ORYCLIA [id number] [place] [address] [place] Platelet mean volume (Bld) [Entitic vol] 9.8 fL Normal 9.0-12.7 [facility] Comment on above: Order Comment: Speci men Type: BLOOD SPECIMENOrdering Facility: [facility] Address: [address] [place] [address] Performed By: #### 5 8410-2 ####[facility]ORYCLIA [id number] [place] [address] [place] Platelets (Bld) [#/Vol] 180 10*3/uL Normal 150-400 [facility] Comment on above: Order Comment: Speci men Type: BLOOD SPECIMENOrdering Facility: [facility] Address: [address] [place] [address] Performed By: #### 5 8410-2 ####[facility] [id number] [place] [id number] [place] RBC (Bld) [#/Vol] 4.43 10*6/uL Normal 4.20-6.00 [facility] Comment on above: Order Comment: Speci men Type: BLOOD SPECIMENOrdering Facility: [facility] Address: [address] [place] [address] Performed By: #### 5 8410-2 ####[facility] [id number] [place] [id number] [place] [facility] [place] WBC (Bld) [#/Vol] 10.95 10*3/uL Normal 3.70-11.00 [facility] Comment on above: Order Comment: Speci men Type: BLOOD SPECIMENOrdering Facility: [facility] Address: [address] [place] [address] Performed By: #### 5 8410-2 ####[facility] [id number] [address] OF [facility] CONSULT PROGon 10-25-2023 CONSULT PROG HNO ID: [id number] Author: COLE FELTON RPh Service: Pharmacy Author [...] No, per bedside RN Additional data elements ([facility]) Is INR less than 1.7? Yes Is [...] patient received education: No Signature: Cole Fel[facility] Pager/Extension: [phone] [facility] Magnesium SerPl-mCncon 10-24 Magnesium [Mass/Vol] 1.8 mg/dL Normal 1.7-2.3 [facility] Comment on above: Order Comment: Speci men Type: VENOUS BLOOD SPECIMEN Ordering Facility: [facility] Address: [address] [place] [address] Performed By: #### 2 4344-4 #### [facility] CLIA [id number] [address] [place] [address] OF [facility] NURSING PROGon 10-25-2023 NURSING PROG HNO ID: [id number] Author: VALERY KEATING RN Service: ? Author Type: Registered Nurse Type: Nursing Progress Note Filed: 10/25/2023 23:21 Note Text: 9729: page to hospitalist Fran Parekh PK228 pt had 7 beats v-tach, asymptomatic. thanks-Valery [phone]: Direct message from Dr. Macario MD page was received ! no intervention needed [facility] NURSING PROG HNO ID: [id number] Author: VALERY KEATING RN Service: ? Author Type: Registered Nurse Type: Nursing Progress Note Filed: 10/25/2023 03:27 Note Text: 0328: page to hospitalist Fran Parekh PK228 urgent lab value called to unit. PTT = 101.3. per nomogram, stopping for 1 hr then restarting at 1600u. thanks -Valery [id number] [facility] PT EDon 10-25-2023 PT ED HNO ID: [id number] Author: COLE FELTON RP Service: Pharmacy Author [...] plan: Follow-up to be determined. Patient from [facility] Indication for oral 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: pulmonary embolus [...] adverse drug reactions and interactions. Cole Fel[facility] PT panel Coag (PPP)on 2023 INR Coag (PPP) [Relative time] 1.0 {INR} Normal 0.9-1.3 [facility] Comment on above: Order Comment: Tiffanie rollnis Type: BLOOD SPECIMEN Ordering Facility: [facility] Address: [address] [place] [address] Result Comment: Yvonne min K Antagonist (VKA) Therapeutic Range: INR 2 to 3 (Target INR of 2.5) Note: For patients treated with VKA drugs, such as warfarin, the [employer] [place] 2012 Guideline recommends [...] Chest 2012, 141:7S-47S Saray RA, et al. [facility] 2017, 70: 252-289 Performed By: #### P TTAC #### [facility] CLIA [id number] [address] [place] [address] [place] PT Coag (PPP) [Time] 11.6 s Normal 9.7-13.0 [facility] Comment on above: Order Comment: Tiffanie rollins Type: BLOOD SPECIMEN Ordering Facility: [facility] Address: [address] [place] [address] Performed By: #### P TTAC #### [facility] CLIA [id number] [address] [place] [address] [place] PTT, ANTICOAGULANT THERAPYon 10-25-2023 aPTT Coag (PPP) [Time] 71.9 s High 23.0-32.4 [facility] Comment on above: Order Comment: Tiffanie rollins Type: BLOOD SPECIMENOrdering Facility: [facility] Address: [address] [place] [address] Performed By: #### P TTAC ####[facility]ATORYCLIA [id number] [address] aPTT Coag (PPP) [Time] 57.9 s High 23.0-32.4 [facility] Comment on above: Order Comment: Speci men Type: BLOOD SPECIMEN Ordering Facility: [facility] Address: [address] [place] [address] Performed By: #### P TTAC #### [facility] CLIA [id number] aPTT Coag (PPP) [Time] 101.3 s High 23.0-32.4 [facility] Comment on above: Order Comment: Speci men Type: BLOOD SPECIMEN Ordering Facility: [facility] Address: [address] [place] [address] Performed By: #### P TTAC #### [facility] CLIA [id number] [address] [place] [address] ALLIED HEALTHon 10-24-2023 ALLIED HEALTH HNO ID: [id number] Author: JUAN C ESCOTO Chaplain Service: Spiritual Care Author Type: Salesforce Developer Type: Allied Health Filed: 10/24/2023 14:08 Note Text: SPIRITUALCARE Spiritual Care Visit- Brief Note Name: Fran Parekh Date: October 24, 2023 Notes: While engaging in spiritual care rounds on the SICU unit, I visited the patient and introduced spiritual care services. 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 Salesforce Developer provided caring presence and responses, interactive listening and connected patient to a reflection in mindfulness concentrating on love. I provided further spiritual presence and bucolical support through an offer of prayers. Patient was grateful. I shared lamination assembler availability. To contact the Spiritual Care Department: Please call [phone] or Page the On-Call Salesforce Developer at pager [phone]. Thank you for the opportunity to be of service. SIGNATURE: Chaplain Alphonse PATIENT NAME: Fran Parekh DATE: October 24, 2023 TIME: 8:45 AM This is an electronically created document. IF PRINTED, PLEASE DO NOT REMOVE FROM THE CHART OR MODIFY PRINTED COPY. Normal [facility] Basic metabolic 2000 panelon 10-24-2023 Anion gap [Moles/Vol] 11 mmol/L Normal 8-15 [facility] Comment on above: Order Comment: Speci men Type: BLOOD SPECIMEN Ordering Facility: [facility] Address: [address] [place] [address] Performed By: #### P TTAC, 00511-7 #### [facility] CLIA [id number] [address] [place] [address] [place] Calcium [Mass/Vol] 8.4 mg/dL Low 8.5-10.2 [facility] Comment on above: Order Comment: Speci men Type: BLOOD SPECIMEN Ordering Facility: [facility] Address: [address] [place] [address] Performed By: #### P TTAC, 16686-8 #### [facility] CLIA [id number] [address] [place] [address] [place] Chloride [Moles/Vol] 106 mmol/L Normal 98-107 [facility] Comment on above: Order Comment: Speci men Type: BLOOD SPECIMEN Ordering Facility: [facility] Address: [address] [place] [address] Performed By: #### P TTAC, 30404-0 #### [facility] CLIA [id number] [address] [place] [address] [place] CO2 [Moles/Vol] 21 mmol/L Low 22-30 [facility] Comment on above: Order Comment: Speci men Type: BLOOD SPECIMEN Ordering Facility: [facility] Address: [address] [place] [address] Performed By: #### P TTAC, 27647-9 #### [facility] CLIA [id number] [address] [place] [address] [place] Creatinine [Mass/Vol] 1.43 mg/dL High 0.73-1.22 [facility] Comment on above: Order Comment: Tiffanie rollins Type: BLOOD SPECIMEN Ordering Facility: [facility] Address: [address] [place] [address] Performed By: #### P TTAC, 42127-8 #### [facility] CLIA [id number] [address] [place] [address] [place] Creatinine and Glomerular filtration rate.predicted panel (S/P/Bld) 50 mL/min/1.73m??? Low >=60 [facility] Comment on above: Order Comment: Tiffanie rollins Type: BLOOD SPECIMEN Ordering Facility: [facility] Address: [address] [place] [address] Result Comment: Danika mated Glomerular Filtration Rate [...] actual GFR. Performed By: #### P TTAC, 87266-3 #### [facility] CLIA [id number] [address] [place] [address] [place] Glucose [Mass/Vol] 107 mg/dL High 74-99 [facility] Comment on above: Order Comment: Tiffanie rollins Type: BLOOD SPECIMEN Ordering Facility: [facility] Address: [address] [place] [address] Result Comment: The [employer] [place] [employer] (ADA) provides guidance for cutoff [...] Standards of Medical Care in Diabetes 2016, [employer] [place] [employer]. Diabetes Care. 2016.39(Suppl 1). Performed By: #### P TTAC, 80030-9 #### [facility] CLIA [id number] [place] [address] [place] Potassium [Moles/Vol] 4.0 mmol/L Normal 3.7-5.1 [facility] Comment on above: Order Comment: Speci men Type: BLOOD SPECIMEN Ordering Facility: [facility] Address: [address] [place] [address] Performed By: #### P TTAC, 30705-3 #### [facility] CLIA [id number] [place] [address] [place] Sodium [Moles/Vol] 138 mmol/L Normal 136-144 [facility] Comment on above: Order Comment: Speci men Type: BLOOD SPECIMEN Ordering Facility: [facility] Address: [address] [place] [address] Performed By: #### P TTAC, 58793-6 #### [facility] CLIA [id number] [address] [place] [address] [place] Urea nitrogen [Mass/Vol] 23 mg/dL Normal 9-24 [facility] Comment on above: Order Comment: Speci men Type: BLOOD SPECIMEN Ordering Facility: [facility] Address: [address] [place] [address] Performed By: #### P TTAC, 73055-5 #### [facility] CLIA [id number] [address] [place] [address] [place] CBC panel Auto (Bld)on 10-23 Erythrocyte distribution width (RBC) [Ratio] 14.3 % Normal 11.5-15.0 [facility] Comment on above: Order Comment: Speci men Type: BLOOD SPECIMENOrdering Facility: [facility] Address: [address] [place] [address] Performed By: #### 5 8410-2 ####[facility] [id number] [place] [address] [place] Hematocrit (Bld) [Volume fraction] 45.7 % Normal 39.0-51.0 [facility] Comment on above: Order Comment: Speci men Type: BLOOD SPECIMENOrdering Facility: [facility] Address: [address] [place] [address] Performed By: #### 5 8410-2 ####[facility] [id number] [place] [address] [place] Hemoglobin (Bld) [Mass/Vol] 15.6 g/dL Normal 13.0-17.0 [facility] Comment on above: Order Comment: Speci men Type: BLOOD SPECIMENOrdering Facility: [facility] Address: [address] [place] [address] Performed By: #### 5 8410-2 ####[facility]ORYCLIA [id number] [address] [facility] MCH (RBC) [Entitic mass] 32.4 pg Normal 26.0-34.0 [facility] Comment on above: Order Comment: Speci men Type: BLOOD SPECIMENOrdering Facility: [facility] Address: [address] [place] [address] Performed By: #### 5 8410-2 ####[facility]ORYCLIA [id number] [address] [place] [facility] MCHC (RBC) [Mass/Vol] 34.1 g/dL Normal 30.5-36.0 [facility] Comment on above: Order Comment: Speci men Type: BLOOD SPECIMENOrdering Facility: [facility] Address: [address] [place] [address] Performed By: #### 5 8410-2 ####[facility] [id number] [address] [place] MCV (RBC) [Entitic vol] 94.8 fL Normal 80.0-100.0 [facility] Comment on above: Order Comment: Speci men Type: BLOOD SPECIMENOrdering Facility: [facility] Address: [address] [place] [address] Performed By: #### 5 8410-2 ####[facility]ATORYCLIA [id number] [place] [address] [place] Nucleated RBC (Bld) [#/Vol] 10*3/uL Normal <0.01 [facility] Comment on above: Order Comment: Speci men Type: BLOOD SPECIMENOrdering Facility: [facility] Address: [address] [place] [address] Performed By: #### 5 8410-2 ####[facility] [id number] [place] [id number] [place] Platelet mean volume (Bld) [Entitic vol] 9.6 fL Normal 9.0-12.7 [facility] Comment on above: Order Comment: Speci men Type: BLOOD SPECIMENOrdering Facility: [facility] Address: [address] [place] [address] Performed By: #### 5 8410-2 ####[facility] [id number] [place] [address] [place] Platelets (Bld) [#/Vol] 203 10*3/uL Normal 150-400 [facility] Comment on above: Order Comment: Speci men Type: BLOOD SPECIMENOrdering Facility: [facility] Address: [address] [place] [address] Performed By: #### 5 8410-2 ####[facility]IA [id number] [place] [address] [place] RBC (Bld) [#/Vol] 4.82 10*6/uL Normal 4.20-6.00 [facility] Comment on above: Order Comment: Speci men Type: BLOOD SPECIMENOrdering Facility: [facility] Address: [address] [place] [address] Performed By: #### 5 8410-2 ####[facility] [id number] [place] [id number] [place] WBC (Bld) [#/Vol] 11.53 10*3/uL High 3.70-11.00 [facility] Comment on above: Order Comment: Speci men Type: BLOOD SPECIMENOrdering Facility: [facility] Address: [address] [place] [address] Performed By: #### 5 8410-2 ####[facility]ATORYCLIA [id number] [place] [address] [place] Erythrocyte distribution width (RBC) [Ratio] 14.5 % Normal 11.5-15.0 [facility] Comment on above: Order Comment: Speci men Type: BLOOD SPECIMEN Ordering Facility: [facility] Address: [address] [place] [address] Performed By: #### P TTAC #### [facility] CLIA [id number] [address] [place] [address] [place] Hematocrit (Bld) [Volume fraction] 42.2 % Normal 39.0-51.0 [facility] Comment on above: Order Comment: Speci men Type: BLOOD SPECIMEN Ordering Facility: [facility] Address: [address] [place] [address] Performed By: #### P TTAC #### [facility] CLIA [id number] [address] [place] [address] [place] Hemoglobin (Bld) [Mass/Vol] 14.2 g/dL Normal 13.0-17.0 [facility] Comment on above: Order Comment: Speci men Type: BLOOD SPECIMEN Ordering Facility: [facility] Address: [address] [place] [address] Performed By: #### P TTAC #### [facility] CLIA [id number] [address] [place] [address] [place] MCH (RBC) [Entitic mass] 32.1 pg Normal 26.0-34.0 [facility] Comment on above: Order Comment: Speci men Type: BLOOD SPECIMEN Ordering Facility: [facility] Address: [address] [place] [address] Performed By: #### P TTAC #### [facility] CLIA [id number] [address] [place] [address] [place] MCHC (RBC) [Mass/Vol] 33.6 g/dL Normal 30.5-36.0 [facility] Comment on above: Order Comment: Speci men Type: BLOOD SPECIMEN Ordering Facility: [facility] Address: [address] [place] [address] Performed By: #### P TTAC #### [facility] CLIA [id number] [address] [place] [address] [place] MCV (RBC) [Entitic vol] 95.5 fL Normal 80.0-100.0 [facility] Comment on above: Order Comment: Speci men Type: BLOOD SPECIMEN Ordering Facility: [facility] Address: [address] [place] [address] Performed By: #### P TTAC #### [facility] CLIA [id number] [address] [place] [address] [place] Nucleated RBC (Bld) [#/Vol] 10*3/uL Normal <0.01 [facility] Comment on above: Order Comment: Speci men Type: BLOOD SPECIMEN Ordering Facility: [facility] Address: [address] [place] [address] Performed By: #### P TTAC #### [facility] CLIA [id number] [address] [place] [address] [place] Platelet mean volume (Bld) [Entitic vol] 9.8 fL Normal 9.0-12.7 [facility] Comment on above: Order Comment: Speci men Type: BLOOD SPECIMEN Ordering Facility: [facility] Address: [address] [place] [address] Performed By: #### P TTAC #### [facility] CLIA [id number] [address] [place] [address] [place] Platelets (Bld) [#/Vol] 151 10*3/uL Normal 150-400 [facility] Comment on above: Order Comment: Speci men Type: BLOOD SPECIMEN Ordering Facility: [facility] Address: [address] [place] [address] Performed By: #### P TTAC #### [facility] CLIA [id number] [address] [place] [address] [place] RBC (Bld) [#/Vol] 4.42 10*6/uL Normal 4.20-6.00 [facility] Comment on above: Order Comment: Speci men Type: BLOOD SPECIMEN Ordering Facility: [facility] Address: [address] [place] [id number] Performed By: #### P TTAC #### [facility] CLIA [id number] [place] [address] [place] [facility] [place] WBC (Bld) [#/Vol] 10.84 10*3/uL Normal 3.70-11.00 [facility] Comment on above: Order Comment: Tiffanie rollins Type: BLOOD SPECIMEN Ordering Facility: [facility] Address: [address] [place] [address] Performed By: #### P TTAC #### [facility] CLIA [id number] CONSULT PROGon 10-24-2023 CONSULT PROG HNO ID: [id number] Author: SISSY MARTINEZ RPh Service: Pharmacy Author [...] (discussed with CHAD Ly) Additional data elements ([facility]) Is INR less than 1.7? Yes Is [...] patient received education: No Signature: Sissy Martinez [facility] Normal [facility] Gas and Carbon monoxide pane l (BldV)on 10-24-2023 BASE DEFICIT, VENOUS >-1 Normal -2-0 [facility] Comment on above: Order Comment: Tiffanie rollins Type: BLOOD SPECIMEN Ordering Facility: [facility] Address: [address] [place] [address] Performed By: #### P TTAC #### [facility] CLIA [id number] [address] [place] [address] [place] Body temperature 97.16 [degF] Normal [facility] Comment on above: Order Comment: Ruthi ria Type: BLOOD SPECIMEN Ordering Facility: [facility] Address: [address] [place] [address] Performed By: #### P TTAC #### [facility] CLIA [id number] [address] [place] [address] [place] Calcium.ionized (Bld) [Mass/Vol] 1.11 mmol/L Normal 1.08-1.30 [facility] Comment on above: Order Comment: Ruthi men Type: BLOOD SPECIMEN Ordering Facility: [facility] Address: [address] [place] [address] Performed By: #### P TTAC #### [facility] CLIA [id number] [address] [place] [address] [place] Calcium.ionized adjusted to pH 7.4 (BldA) [Moles/Vol] 1.13 mmol/L Normal 1.08-1.30 [facility] Comment on above: Order Comment: Ruthi ria Type: BLOOD SPECIMEN Ordering Facility: [facility] Address: [address] [place] [address] Performed By: #### P TTAC #### [facility] CLIA [id number] [address] [place] [address] [place] Carboxyhemoglobin (BldV) [Mass fraction] 1.8 % Normal 0.0-2.0 [facility] Comment on above: Order Comment: Speci men Type: BLOOD SPECIMEN Ordering Facility: [facility] Address: [address] [place] [address] Result Comment: Carb oxyhemoglobin Reference Range for Smokers: 2.0-8.0% Performed By: #### P TTAC #### [facility] CLIA [id number] [address] [place] [address] [place] Chloride [Moles/Vol] 111 mmol/L High 97-105 [facility] Comment on above: Order Comment: Speci men Type: BLOOD SPECIMEN Ordering Facility: [facility] Address: [address] [place] [address] Performed By: #### P TTAC #### [facility] CLIA [id number] [address] [place] [address] [place] CO2 (BldV) [Partial pressure] 35 mm[Hg] Low 42-55 [facility] Comment on above: Order Comment: Speci men Type: BLOOD SPECIMEN Ordering Facility: [facility] Address: [address] [place] [address] Performed By: #### P TTAC #### [facility] CLIA [id number] [address] [place] [address] [place] CO2 adjusted to patient's actual temperature (BldV) [Partial pressure] Normal [facility] Comment on above: Order Comment: Speci men Type: BLOOD SPECIMEN Ordering Facility: [facility] Address: [address] [place] [address] Performed By: #### P TTAC #### [facility] CLIA [id number] [address] [place] [address] [place] Glucose [Mass/Vol] 116 mg/dL High 60-105 [facility] Comment on above: Order Comment: Speci men Type: BLOOD SPECIMEN Ordering Facility: [facility] Address: [address] [place] [address] Performed By: #### P TTAC #### [facility] CLIA [id number] [address] [place] [address] [place] HCO3 (Bld) [Moles/Vol] 23 mmol/L Low 24-28 [facility] Comment on above: Order Comment: Speci men Type: BLOOD SPECIMEN Ordering Facility: [facility] Address: [address] [place] [address] Performed By: #### P TTAC #### [facility] CLIA [id number] [address] [place] [address] [place] Hematocrit (Bld) [Volume fraction] 46.1 % Normal 39.0-51.0 [facility] Comment on above: Order Comment: Speci men Type: BLOOD SPECIMEN Ordering Facility: [facility] Address: [address] [place] [address] Performed By: #### P TTAC #### [facility] CLIA [id number] [address] [place] [address] [place] Hemoglobin (Bld) [Mass/Vol] 15.1 g/dL Normal 13.0-17.0 [facility] Comment on above: Order Comment: Speci men Type: BLOOD SPECIMEN Ordering Facility: [facility] Address: [address] [place] [address] Performed By: #### P TTAC #### [facility] CLIA [id number] [address] [place] [address] [place] Lactate [Moles/Vol] 1.4 mmol/L Normal 0.5-2.2 [facility] Comment on above: Order Comment: Speci men Type: BLOOD SPECIMEN Ordering Facility: [facility] Address: [address] [place] [address] Performed By: #### P TTAC #### [facility] CLIA [id number] [address] [place] [address] [place] Methemoglobin (Bld) [Mass fraction] 0.4 % Normal 0.0-1.5 [facility] Comment on above: Order Comment: Speci men Type: BLOOD SPECIMEN Ordering Facility: [facility] Address: [address] [place] [address] Performed By: #### P TTAC #### [facility] CLIA [id number] [address] [place] [address] [place] O2 THERAPY RA=Room Air Normal [facility] Comment on above: Order Comment: Speci men Type: BLOOD SPECIMEN Ordering Facility: [facility] Address: [address] [place] [address] Performed By: #### P TTAC #### [facility] CLIA [id number] [address] [place] [address] [place] Oxygen (BldV) [Partial pressure] 153 mm[Hg] High 35-45 [facility] Comment on above: Order Comment: Speci men Type: BLOOD SPECIMEN Ordering Facility: [facility] Address: [address] [place] [address] Performed By: #### P TTAC #### [facility] CLIA [id number] [address] [place] [address] [place] Oxygen adjusted to patient's actual temperature (BldV) [Partial pressure] Normal [facility] Comment on above: Order Comment: Speci men Type: BLOOD SPECIMEN Ordering Facility: [facility] Address: [address] [place] [address] Performed By: #### P TTAC #### [facility] CLIA [id number] [address] [place] [address] [place] Oxygen saturation in Venous blood 99 % High 60-85 [facility] Comment on above: Order Comment: Speci men Type: BLOOD SPECIMEN Ordering Facility: [facility] Address: [address] [place] [address] Performed By: #### P TTAC #### [facility] CLIA [id number] [address] [place] [address] [place] Oxyhemoglobin (BldV) [Mass fraction] 97 % High 60-85 [facility] Comment on above: Order Comment: Speci men Type: BLOOD SPECIMEN Ordering Facility: [facility] Address: [address] [place] [address] Performed By: #### P TTAC #### [facility] CLIA [id number] [address] [place] [address] [place] pH (BldV) 7.44 [pH] High 7.32-7.42 [facility] Comment on above: Order Comment: Speci men Type: BLOOD SPECIMEN Ordering Facility: [facility] Address: [address] [place] [address] Performed By: #### P TTAC #### [facility] CLIA [id number] [address] [place] [address] [place] pH adjusted to patient's actual temperature (BldV) Normal [facility] Comment on above: Order Comment: Speci men Type: BLOOD SPECIMEN Ordering Facility: [facility] Address: [address] [place] [address] Performed By: #### P TTAC #### [facility] CLIA [id number] [address] [place] [address] [place] Potassium [Moles/Vol] 4.0 mmol/L Normal 3.5-5.0 [facility] Comment on above: Order Comment: Speci men Type: BLOOD SPECIMEN Ordering Facility: [facility] Address: [address] [place] [address] Performed By: #### P TTAC #### [facility] CLIA [id number] [address] [place] [address] [place] Sodium [Moles/Vol] 140 mmol/L Normal 136-144 [facility] Comment on above: Order Comment: Speci men Type: BLOOD SPECIMEN Ordering Facility: [facility] Address: [address] [place] [address] Performed By: #### P TTAC #### [facility] CLIA [id number] [address] [place] [address] [place] Magnesium SerPl-mCncon 10-23 Magnesium [Mass/Vol] 1.9 mg/dL Normal 1.7-2.3 [facility] Comment on above: Order Comment: Speci men Type: BLOOD SPECIMEN Ordering Facility: [facility] Address: [address] [place] [address] Performed By: #### P TTAC, 45385-0 #### [facility] CLIA [id number] OF [facility] NURSING PROGon 10-24-2023 NURSING PROG HNO ID: [id number] Author: ANN NGUYEN RN Service: ? Author Type: Registered Nurse Type: Nursing Progress Note Filed: 10/24/2023 17:18 Note Text: Transfer Note: PATIENT NAME: Fran Parekh Patient Location: [id number] Room: [id number] Patient transferred out to room/unit PK 2 C 28 in stable condition. Actions taken: Report given/called to CHAD Astudillo at 1710. Patient belongings with patient and patient transferred on telemetry. Normal [facility] PT panel Coag (PPP)on 2023 INR Coag (PPP) [Relative time] 1.0 {INR} Normal 0.9-1.3 [facility] Comment on above: Order Comment: Speci men Type: BLOOD SPECIMEN Ordering Facility: [facility] Address: [address] [place] [address] Result Comment: Yvonne min K Antagonist (VKA) Therapeutic Range: INR 2 to 3 (Target INR of 2.5) Note: For patients treated with VKA drugs, such as warfarin, the [employer] 2012 Guideline recommends [...] Chest 2012, 141:7S-47S Saray WISE et al. [facility] 2017, 70: 252-289 Performed By: #### P [facility], 25418-8 #### [facility] CLIA [id number] [address] [place] [address] [place] PT Coag (PPP) [Time] 11.3 s Normal 9.7-13.0 [facility] Comment on above: Order Comment: Speci men Type: BLOOD SPECIMEN Ordering Facility: [facility] Address: [address] [place] [address] Performed By: #### P TTAC, 44585-6 #### [facility] CLIA [id number] [address] [place] [address] [place] PTT, ANTICOAGULANT THERAPYon 10-24-2023 aPTT Coag (PPP) [Time] 30.0 s Normal 23.0-32.4 [facility] Comment on above: Order Comment: Speci men Type: VENOUS BLOOD SPECIMEN Ordering Facility: [facility] Address: [address] [place] [address] Performed By: #### 2 4344-4 #### [facility] CLIA [id number] [address] [place] [address] [place] aPTT Coag (PPP) [Time] 50.7 s High 23.0-32.4 [facility] Comment on above: Order Comment: Speci men Type: BLOOD SPECIMEN Ordering Facility: [facility] Address: [address] [place] [address] Performed By: #### P TTAC, 64562-6 #### [facility] CLIA [id number] [address] [place] [address] [place] aPTT Coag (PPP) [Time] 55.2 s High 23.0-32.4 [facility] Comment on above: Order Comment: Speci men Type: VENOUS BLOOD SPECIMEN Ordering Facility: [facility] Address: [address] [place] [address] Performed By: #### 2 4344-4 #### [facility] CLIA [id number] [address] [place] [address] [place] Phosphate SerPl-mCncon 10-23 Phosphate [Mass/Vol] 3.8 mg/dL Normal 2.7-4.8 [facility] Comment on above: Order Comment: Speci men Type: BLOOD SPECIMEN Ordering Facility: [facility] Address: [address] [place] [address] Performed By: #### P [facility], 92057-1 #### [facility] CLIA [id number] STATES OF [facility] HEALTH 10-23-2023 ALLIED HEALTH HNO ID: [id number] Author: JUAN C ESCOTO Chaplain Service: Spiritual Care Author Type: Salesforce Developer Type: Allied Health Filed: 10/23/2023 14:11 Note Text: SPIRITUALCARE Spiritual Care Visit- Brief Note Name: Fran Parekh Date: October 23, 2023 Notes: While engaging in spiritual care rounds on the [facility] unit, I provided spiritual presence and bucolical support through empathetic care through an offer of prayers at the door. To contact the Spiritual Care Department: Please call [phone] or Page the On-Call Salesforce Developer at pager [phone]. Thank you for the opportunity to be of service. SIGNATURE: Chaplain Alphonse PATIENT NAME: Fran Parekh DATE: October 23, 2023 TIME: 10:00 AM This is an electronically created document. IF PRINTED, PLEASE DO NOT REMOVE FROM THE CHART OR MODIFY PRINTED COPY. Normal [facility] HNO ID: [id number] Author: PATY GUZMAN RDMS Service: Radiology Author [...] PATIENT PRESENTS WITH AN IMPLANTABLE OR ATTACHED PROCESS ENGINEERING INTERN: No RADIOLOGY DEPARTMENT: Ultrasound PERIPHERAL IV DATA: Not applicable SIGNED BY: PATY GUZMAN RDMS October 23, 2023 3:21 AM Normal [facility] ALLIED HEALTH HNO ID: [id number] Author: CARRINGTON LAWS RT(R) Service: Radiology Author [...] PATIENT PRESENTS WITH AN IMPLANTABLE OR ATTACHED PROCESS ENGINEERING INTERN: No RADIOLOGY DEPARTMENT: General X-ray: Exam(s) Completed: Chest X-Ray PERIPHERAL IV DATA: Not applicable SIGNED BY: RT Sindy(R) October 23, 2023 2:45 AM [facility] CBC panel Auto (Bld)on 10-22 Erythrocyte distribution width (RBC) [Ratio] 14.4 % Normal 11.5-15.0 [facility] Comment on above: Order Comment: Tiffanie rollins Type: BLOOD SPECIMEN Ordering Facility: [facility] Address: [address] [place] [address] Performed By: #### P TTAC #### [facility] CLIA [id number] [address] [place] [address] [place] Hematocrit (Bld) [Volume fraction] 42.6 % Normal 39.0-51.0 [facility] Comment on above: Order Comment: Tiffanie rollins Type: BLOOD SPECIMEN Ordering Facility: [facility] Address: [address] [place] [address] Performed By: #### P TTAC #### [facility] CLIA [id number] [address] [place] [address] [place] Hemoglobin (Bld) [Mass/Vol] 14.5 g/dL Normal 13.0-17.0 [facility] Comment on above: Order Comment: Speci men Type: BLOOD SPECIMEN Ordering Facility: [facility] Address: [address] [place] [address] Performed By: #### P TTAC #### [facility] CLIA [id number] [address] [place] [address] [place] MCH (RBC) [Entitic mass] 32.7 pg Normal 26.0-34.0 [facility] Comment on above: Order Comment: Speci men Type: BLOOD SPECIMEN Ordering Facility: [facility] Address: [address] [place] [address] Performed By: #### P TTAC #### [facility] CLIA [id number] [address] [place] [address] [place] MCHC (RBC) [Mass/Vol] 34.0 g/dL Normal 30.5-36.0 [facility] Comment on above: Order Comment: Speci men Type: BLOOD SPECIMEN Ordering Facility: [facility] Address: [address] [place] [address] Performed By: #### P TTAC #### [facility] CLIA [id number] [address] [place] [address] [place] MCV (RBC) [Entitic vol] 96.2 fL Normal 80.0-100.0 [facility] Comment on above: Order Comment: Speci men Type: BLOOD SPECIMEN Ordering Facility: [facility] Address: [address] [place] [address] Performed By: #### P TTAC #### [facility] CLIA [id number] [address] [place] [address] [place] Nucleated RBC (Bld) [#/Vol] 10*3/uL Normal <0.01 [facility] Comment on above: Order Comment: Speci men Type: BLOOD SPECIMEN Ordering Facility: [facility] Address: [address] [place] [address] Performed By: #### P TTAC #### [facility] CLIA [id number] [address] [place] [address] [place] Platelet mean volume (Bld) [Entitic vol] 10.1 fL Normal 9.0-12.7 [facility] Comment on above: Order Comment: Speci men Type: BLOOD SPECIMEN Ordering Facility: [facility] Address: [address] [place] [address] Performed By: #### P TTAC #### [facility] CLIA [id number] [address] [place] [address] [place] Platelets (Bld) [#/Vol] 184 10*3/uL Normal 150-400 [facility] Comment on above: Order Comment: Speci men Type: BLOOD SPECIMEN Ordering Facility: [facility] Address: [address] [place] [address] Performed By: #### P TTAC #### [facility] CLIA [id number] [address] [place] [address] [place] RBC (Bld) [#/Vol] 4.43 10*6/uL Normal 4.20-6.00 [facility] Comment on above: Order Comment: Speci men Type: BLOOD SPECIMEN Ordering Facility: [facility] Address: [address] [place] [address] Performed By: #### P TTAC #### [facility] CLIA [id number] [address] [place] [address] [place] WBC (Bld) [#/Vol] 9.53 10*3/uL Normal 3.70-11.00 [facility] Comment on above: Order Comment: Speci men Type: BLOOD SPECIMEN Ordering Facility: [facility] Address: [address] [place] [address] Performed By: #### P TTAC #### [facility] CLIA [id number] [address] [place] [address] [place] Comp Metab 2000 Pnl SerPlon 10-23-2023 Sodium [Moles/Vol] 143 mmol/L Normal 136-144 [facility] Comment on above: Order Comment: Speci men Type: BLOOD SPECIMEN Ordering Facility: [facility] Address: [address] [place] [address] Performed By: #### 3 3959-8, 3016-3, 79453-7, 62333-4 #### [facility] CLIA [id number] [address] [place] [address] [place] [facility] Order Comment: Speci men Type: VENOUS BLOOD SPECIMEN Ordering Facility: [facility] Address: [address] [place] [address] Performed By: #### 2 4344-4 #### [facility] CLIA [id number] [address] [place] [address] [place] Comprehensive metabolic 2000 panelon 10-23-2023 Albumin [Mass/Vol] 3.2 g/dL Low 3.9-4.9 [facility] Comment on above: Order Comment: Speci men Type: BLOOD SPECIMEN Ordering Facility: [facility] Address: [address] [place] [address] Performed By: #### 3 3959-8, 3016-3, 65051-1, 64605-4 #### [facility] CLIA [id number] [address] [place] [address] [place] ALP [Catalytic activity/Vol] 75 U/L Normal 38-113 [facility] Comment on above: Order Comment: Speci men Type: BLOOD SPECIMEN Ordering Facility: [facility] Address: [address] [place] [address] Performed By: #### 3 3959-8, 3016-3, 21224-0, 93983-7 #### [facility] CLIA [id number] [address] [place] [address] [place] ALT [Catalytic activity/Vol] 18 U/L Normal 10-54 [facility] Comment on above: Order Comment: Speci men Type: BLOOD SPECIMEN Ordering Facility: [facility] Address: [address] [place] [address] Performed By: #### 3 3959-8, 3016-3, 32471-6, 82726-3 #### [facility] CLIA [id number] [place] [address] [place] Anion gap [Moles/Vol] 11 mmol/L Normal 8-15 [facility] Comment on above: Order Comment: Speci men Type: BLOOD SPECIMEN Ordering Facility: [facility] Address: [address] [place] [address] Performed By: #### 3 3959-8, 3016-3, 52463-7, 28770-2 #### [facility] CLIA [id number] [address] [place] [address] [place] AST [Catalytic activity/Vol] 19 U/L Normal 14-40 [facility] Comment on above: Order Comment: Speci men Type: BLOOD SPECIMEN Ordering Facility: [facility] Address: [address] [place] [address] Performed By: #### 3 3959-8, 3016-3, 60004-0, 02594-1 #### [facility] CLIA [id number] [address] [place] [address] [place] Bilirubin [Mass/Vol] 0.5 mg/dL Normal 0.2-1.3 [facility] Comment on above: Order Comment: Speci men Type: BLOOD SPECIMEN Ordering Facility: [facility] Address: [address] [place] [address] Performed By: #### 3 3959-8, 3016-3, 09385-7, 57858-9 #### [facility] CLIA [id number] [address] [place] [address] [place] Calcium [Mass/Vol] 8.5 mg/dL Normal 8.5-10.2 [facility] Comment on above: Order Comment: Speci men Type: BLOOD SPECIMEN Ordering Facility: [facility] Address: [address] [place] [address] Performed By: #### 3 3959-8, 3016-3, 55725-8, 25181-2 #### [facility] CLIA [id number] [address] [place] [address] [place] Chloride [Moles/Vol] 108 mmol/L High 98-107 [facility] Comment on above: Order Comment: Speci men Type: BLOOD SPECIMEN Ordering Facility: [facility] Address: [address] [place] [address] Performed By: #### 3 3959-8, 3016-3, 35973-2, 19451-1 #### [facility] CLIA [id number] [address] [place] [id number] [place] CO2 [Moles/Vol] 24 mmol/L Normal 22-30 [facility] Comment on above: Order Comment: Speci men Type: BLOOD SPECIMEN Ordering Facility: [facility] Address: [address] [place] [address] Performed By: #### 3 3959-8, 3016-3, 10260-7, 16440-0 #### [facility] CLIA [id number] [place] [address] [place] Creatinine [Mass/Vol] 1.51 mg/dL High 0.73-1.22 [facility] Comment on above: Order Comment: Speci men Type: BLOOD SPECIMEN Ordering Facility: [facility] Address: [address] [place] [address] Performed By: #### 3 3959-8, 3016-3, 41934-4, #### [facility] CLIA [id number] [place] [address] [place] [place] Creatinine and Glomerular filtration rate.predicted panel (S/P/Bld) 47 mL/min/1.73m??? Low >=60 [facility] Comment on above: Order Comment: Speci men Type: BLOOD SPECIMEN Ordering Facility: [facility] Address: [address] [place] [address] Result Comment: Danika mated Glomerular Filtration Rate [...] GFR. Performed By: #### 3 3959-8, 3016-3, 59403-1, 92919-7 #### [facility] CLIA [id number] [place] [address] [place] Glucose [Mass/Vol] 137 mg/dL High 74-99 [facility] Comment on above: Order Comment: Tiffanie rollins Type: BLOOD SPECIMEN Ordering Facility: [facility] Address: [address] [place] [address] Result Comment: The [place] [employer] (ADA) provides guidance for cutoff [...] Standards of Medical Care in Diabetes 2016, [place] [employer]. Diabetes Care. 2016.39(Suppl 1). Performed By: #### 3 3959-8, 3016-3, 68568-5, 68988-1 #### [facility] CLIA [id number] [address] [place] [address] [place] Potassium [Moles/Vol] 4.2 mmol/L Normal 3.7-5.1 [facility] Comment on above: Order Comment: Tiffanie rollins Type: BLOOD SPECIMEN Ordering Facility: [facility] Address: [address] [place], [place] [address] Performed By: #### 3 3959-8, 3016-3, 55780-7, 22373-2 #### [facility] CLIA [id number] [address] [place] [address] [place] Protein [Mass/Vol] 5.9 g/dL Low 6.3-8.0 [facility] Comment on above: Order Comment: Tiffanie rollins Type: BLOOD SPECIMEN Ordering Facility: [facility] Address: [address] [place] [address] Performed By: #### 3 3959-8, 3016-3, 83817-2, 87284-4 #### [facility] CLIA [id number] [place] [address] [place] Urea nitrogen [Mass/Vol] 24 mg/dL Normal 01-22 [facility] Comment on above: Order Comment: Speci men Type: BLOOD SPECIMEN Ordering Facility: [facility] Address: [place] [address] Performed By: #### 3 3959-8, 3016-3, 34299-5, 35582-1 #### [facility] CLIA [id number] STATES OF [facility] ECHOon 10-23-2023 Echocardiography Echocardiography Rep ort: Transthoracic Echo [facility] Date of service: 10/23/2023 10:14:42 AM Ordering [...] * * Final (Updated) * * * [facility] : [id number] Normal [facility] FLUABV+SARS-CoV-2+RSV Pnl Re sp DANNIELLE+probeon 10-23-2023 FLUABV+SARS-CoV-2+RSV Pnl Resp [place]LE+probe COVID 19 RESULT: Not detected The method used is RT-PCR or an equivalent NAAT method. Reference Range(the expected result in uninfected individuals): Not detected INFLUENZA A PCR: Not detected INFLUENZA B PCR: Not detected RSV PCR: Not detected Normal [facility] Comment on above: Performed By: #### 9 5941-1 ####[facility] [id number] [place] [address] [place] Fibrinogen PPP-mCncon 2023 Fibrinogen Coag (PPP) [Mass/Vol] 327 mg/dL Normal 200-400 [facility] Comment on above: Order Comment: Speci men Type: BLOOD SPECIMENOrdering Facility: [facility] Address: [address] [place] [address] Performed By: #### P [facility], 3255-7 ####[facility] [id number] [place] [address] [place] Gas and Carbon monoxide pane l (BldV)on 10-23-2023 Base excess Calc (BldV) [Moles/Vol] 0 mmol/L Normal 0-2 [facility] Comment on above: Order Comment: Speci men Type: VENOUS BLOOD SPECIMEN Ordering Facility: [facility] Address: [address] [place] [address] Performed By: #### 2 4344-4 #### [facility] CLIA [id number] [address] [place] [address] [place] Body temperature 98.06 [degF] Normal [facility] Comment on above: Order Comment: Speci men Type: VENOUS BLOOD SPECIMEN Ordering Facility: [facility] Address: [address] [place] [address] Performed By: #### 2 4344-4 #### [facility] CLIA [id number] [address] [place] [address] [place] Calcium.ionized (Bld) [Mass/Vol] 1.05 mmol/L Low 1.08-1.30 [facility] Comment on above: Order Comment: Speci men Type: VENOUS BLOOD SPECIMEN Ordering Facility: [facility] Address: [address] [place] [address] Performed By: #### 2 4344-4 #### [facility] CLIA [id number] [address] [place] [address] [place] Calcium.ionized adjusted to pH 7.4 (BldA) [Moles/Vol] 1.09 mmol/L Normal 1.08-1.30 [facility] Comment on above: Order Comment: Speci men Type: VENOUS BLOOD SPECIMEN Ordering Facility: [facility] Address: [address] [place] [address] Performed By: #### 2 4344-4 #### [facility] CLIA [id number] [address] [place] [address] [place] Carboxyhemoglobin (BldV) [Mass fraction] 2.4 % High 0.0-2.0 [facility] Comment on above: Order Comment: Speci men Type: VENOUS BLOOD SPECIMEN Ordering Facility: [facility] Address: [address] [place] [address] Result Comment: Carb oxyhemoglobin Reference Range for Smokers: 2.0-8.0% Performed By: #### 2 4344-4 #### [facility] CLIA [id number] [address] [place] [address] [place] Chloride [Moles/Vol] 114 mmol/L High 97-105 [facility] Comment on above: Order Comment: Speci men Type: VENOUS BLOOD SPECIMEN Ordering Facility: [facility] Address: [address] [place] [address] Performed By: #### 2 4344-4 #### [facility] CLIA [id number] [address] [place] [address] [place] CO2 (BldV) [Partial pressure] 32 mm[Hg] Low 42-55 [facility] Comment on above: Order Comment: Speci men Type: VENOUS BLOOD SPECIMEN Ordering Facility: [facility] Address: [address] [place] [address] Performed By: #### 2 4344-4 #### [facility] CLIA [id number] [address] [place] [address] [place] CO2 adjusted to patient's actual temperature (BldV) [Partial pressure] Normal [facility] Comment on above: Order Comment: Speci men Type: VENOUS BLOOD SPECIMEN Ordering Facility: [facility] Address: [address] [place] [address] Performed By: #### 2 4344-4 #### [facility] CLIA [id number] [address] [place] [address] [place] Glucose [Mass/Vol] 125 mg/dL High 60-105 [facility] Comment on above: Order Comment: Speci men Type: VENOUS BLOOD SPECIMEN Ordering Facility: [facility] Address: [address] [place] [address] Performed By: #### 2 4344-4 #### [facility] CLIA [id number] [address] [place] [address] [place] HCO3 (Bld) [Moles/Vol] 23 mmol/L Low 24-28 [facility] Comment on above: Order Comment: Speci men Type: VENOUS BLOOD SPECIMEN Ordering Facility: [facility] Address: [address] [place] [address] Performed By: #### 2 4344-4 #### [facility] CLIA [id number] [address] [place] [address] [place] Hematocrit (Bld) [Volume fraction] 46.3 % Normal 39.0-51.0 [facility] Comment on above: Order Comment: Speci men Type: VENOUS BLOOD SPECIMEN Ordering Facility: [facility] Address: [address] [place] [address] Performed By: #### 2 4344-4 #### [facility] CLIA [id number] [address] [place] [address] [place] Hemoglobin (Bld) [Mass/Vol] 15.1 g/dL Normal 13.0-17.0 [facility] Comment on above: Order Comment: Speci men Type: VENOUS BLOOD SPECIMEN Ordering Facility: [facility] Address: [address] [place] [address] Performed By: #### 2 4344-4 #### [facility] CLIA [id number] [address] [place] [address] [place] Lactate [Moles/Vol] 2.1 mmol/L Normal 0.5-2.2 [facility] Comment on above: Order Comment: Speci men Type: VENOUS BLOOD SPECIMEN Ordering Facility: [facility] Address: [address] [place] [address] Performed By: #### 2 4344-4 #### [facility] CLIA [id number] [address] [place] [address] [place] Methemoglobin (Bld) [Mass fraction] 0.8 % Normal 0.0-1.5 [facility] Comment on above: Order Comment: Speci men Type: VENOUS BLOOD SPECIMEN Ordering Facility: [facility] Address: [address] [place] [address] Performed By: #### 2 4344-4 #### [facility] CLIA [id number] [address] [place] [address] [place] O2 THERAPY RA=Room Air Normal [facility] Comment on above: Order Comment: Speci men Type: VENOUS BLOOD SPECIMEN Ordering Facility: [facility] Address: [address] [place] [address] Performed By: #### 2 4344-4 #### [facility] CLIA [id number] [address] [place] [address] [place] Oxygen (BldV) [Partial pressure] 70 mm[Hg] High 35-45 [facility] Comment on above: Order Comment: Speci men Type: VENOUS BLOOD SPECIMEN Ordering Facility: [facility] Address: [address] [place] [address] Performed By: #### 2 4344-4 #### [facility] CLIA [id number] [address] [place] [address] [place] Oxygen adjusted to patient's actual temperature (BldV) [Partial pressure] Normal [facility] Comment on above: Order Comment: Speci men Type: VENOUS BLOOD SPECIMEN Ordering Facility: [facility] Address: [address] [place] [address] Performed By: #### 2 4344-4 #### [facility] CLIA [id number] [address] [place] [address] [place] Oxygen saturation in Venous blood 94 % High 60-85 [facility] Comment on above: Order Comment: Speci men Type: VENOUS BLOOD SPECIMEN Ordering Facility: [facility] Address: [address] [place] [address] Performed By: #### 2 4344-4 #### [facility] CLIA [id number] [address] [place] [address] [place] Oxyhemoglobin (BldV) [Mass fraction] 91 % High 60-85 [facility] Comment on above: Order Comment: Speci men Type: VENOUS BLOOD SPECIMEN Ordering Facility: [facility] Address: [address] [place] [address] Performed By: #### 2 4344-4 #### [facility] CLIA [id number] [address] [place] [address] [place] pH (BldV) 7.47 [pH] High 7.32-7.42 [facility] Comment on above: Order Comment: Speci men Type: VENOUS BLOOD SPECIMEN Ordering Facility: [facility] Address: [address] [place] [address] Performed By: #### 2 4344-4 #### [facility] CLIA [id number] [address] [place] [address] [place] pH adjusted to patient's actual temperature (BldV) Normal [facility] Comment on above: Order Comment: Speci men Type: VENOUS BLOOD SPECIMEN Ordering Facility: [facility] Address: [address] [place] [address] Performed By: #### 2 4344-4 #### [facility] CLIA [id number] [address] [place] [address] [place] Potassium [Moles/Vol] 3.8 mmol/L Normal 3.5-5.0 [facility] Comment on above: Order Comment: Speci men Type: VENOUS BLOOD SPECIMEN Ordering Facility: [facility] Address: [address] [place] [address] Performed By: #### 2 4344-4 #### [facility] CLIA [id number] [address] [place] [address] [place] Sodium [Moles/Vol] 140 mmol/L Normal 136-144 [facility] Comment on above: Order Comment: Speci men Type: VENOUS BLOOD SPECIMEN Ordering Facility: [facility] Address: [address] [place] [address] Performed By: #### 2 4344-4 #### [facility] CLIA [id number] [address] [place] [address] [place] Base excess Calc (BldV) [Moles/Vol] 0 mmol/L Normal 0-2 [facility] Comment on above: Order Comment: Speci men Type: VENOUS BLOOD SPECIMEN Ordering Facility: [facility] Address: [address] [place] [address] Performed By: #### 2 4344-4 #### [facility] CLIA [id number] [address] [place] [address] [place] Body temperature 98.06 [degF] Normal [facility] Comment on above: Order Comment: Speci men Type: VENOUS BLOOD SPECIMEN Ordering Facility: [facility] Address: [address] [place] [address] Performed By: #### 2 4344-4 #### [facility] CLIA [id number] [address] [place] [address] [place] Calcium.ionized (Bld) [Mass/Vol] 1.14 mmol/L Normal 1.08-1.30 [facility] Comment on above: Order Comment: Speci men Type: VENOUS BLOOD SPECIMEN Ordering Facility: [facility] Address: [address] [place] [address] Performed By: #### 2 4344-4 #### [facility] CLIA [id number] [address] [place] [address] [place] Calcium.ionized adjusted to pH 7.4 (BldA) [Moles/Vol] 1.11 mmol/L Normal 1.08-1.30 [facility] Comment on above: Order Comment: Speci men Type: VENOUS BLOOD SPECIMEN Ordering Facility: [facility] Address: [address] [place] [address] Performed By: #### 2 4344-4 #### [facility] CLIA [id number] [address] [place] [address] [place] Carboxyhemoglobin (BldV) [Mass fraction] 2.0 % Normal 0.0-2.0 [facility] Comment on above: Order Comment: Speci men Type: VENOUS BLOOD SPECIMEN Ordering Facility: [facility] Address: [address] [place] [address] Result Comment: Carb oxyhemoglobin Reference Range for Smokers: 2.0-8.0% Performed By: #### 2 4344-4 #### [facility] CLIA [id number] [address] [place] [address] [place] Chloride [Moles/Vol] 111 mmol/L High 97-105 [facility] Comment on above: Order Comment: Speci men Type: VENOUS BLOOD SPECIMEN Ordering Facility: [facility] Address: [address] [place] [address] Performed By: #### 2 4344-4 #### [facility] CLIA [id number] [address] [place] [address] [place] CO2 (BldV) [Partial pressure] 48 mm[Hg] Normal 42-55 [facility] Comment on above: Order Comment: Speci men Type: VENOUS BLOOD SPECIMEN Ordering Facility: [facility] Address: [address] [place] [address] Performed By: #### 2 4344-4 #### [facility] CLIA [id number] [address] [place] [address] [place] CO2 adjusted to patient's actual temperature (BldV) [Partial pressure] Normal [facility] Comment on above: Order Comment: Speci men Type: VENOUS BLOOD SPECIMEN Ordering Facility: [facility] Address: [address] [place] [address] Performed By: #### 2 4344-4 #### [facility] CLIA [id number] [address] [place] [address] [place] Glucose [Mass/Vol] 145 mg/dL High 60-105 [facility] Comment on above: Order Comment: Speci men Type: VENOUS BLOOD SPECIMEN Ordering Facility: [facility] Address: [address] [place] [address] Performed By: #### 2 4344-4 #### [facility] CLIA [id number] [address] [place] [address] [place] HCO3 (Bld) [Moles/Vol] 26 mmol/L Normal 24-28 [facility] Comment on above: Order Comment: Speci men Type: VENOUS BLOOD SPECIMEN Ordering Facility: [facility] Address: [address] [place] [address] Performed By: #### 2 4344-4 #### [facility] CLIA [id number] [address] [place] [address] [place] Hematocrit (Bld) [Volume fraction] 44.8 % Normal 39.0-51.0 [facility] Comment on above: Order Comment: Speci men Type: VENOUS BLOOD SPECIMEN Ordering Facility: [facility] Address: [address] [place] [address] Performed By: #### 2 4344-4 #### [facility] CLIA [id number] [address] [place] [address] [place] Hemoglobin (Bld) [Mass/Vol] 14.6 g/dL Normal 13.0-17.0 [facility] Comment on above: Order Comment: Speci men Type: VENOUS BLOOD SPECIMEN Ordering Facility: [facility] Address: [address] [place] [address] Performed By: #### 2 4344-4 #### [facility] CLIA [id number] [address] [place] [address] [place] Lactate [Moles/Vol] 2.7 mmol/L High 0.5-2.2 [facility] Comment on above: Order Comment: Speci men Type: VENOUS BLOOD SPECIMEN Ordering Facility: [facility] Address: [address] [place] [address] Performed By: #### 2 4344-4 #### [facility] CLIA [id number] [address] [place] [address] [place] LITERS 2 Liters/min Normal [facility] Comment on above: Order Comment: Speci men Type: VENOUS BLOOD SPECIMEN Ordering Facility: [facility] Address: [address] [place] [address] Performed By: #### 2 4344-4 #### [facility] CLIA [id number] [address] [place] [address] [place] Methemoglobin (Bld) [Mass fraction] 0.5 % Normal 0.0-1.5 [facility] Comment on above: Order Comment: Speci men Type: VENOUS BLOOD SPECIMEN Ordering Facility: [facility] Address: [address] [place] [address] Performed By: #### 2 4344-4 #### [facility] CLIA [id number] [address] [place] [address] [place] O2 THERAPY NC = Nasal Cannula Normal [facility] Comment on above: Order Comment: Speci men Type: VENOUS BLOOD SPECIMEN Ordering Facility: [facility] Address: [address] [place] [address] Performed By: #### 2 4344-4 #### [facility] CLIA [id number] [address] [place] [address] [place] Oxygen (BldV) [Partial pressure] 51 mm[Hg] High 35-45 [facility] Comment on above: Order Comment: Speci men Type: VENOUS BLOOD SPECIMEN Ordering Facility: [facility] Address: [address] [place] [address] Performed By: #### 2 4344-4 #### [facility] CLIA [id number] [address] [place] [address] [place] Oxygen adjusted to patient's actual temperature (BldV) [Partial pressure] Normal [facility] Comment on above: Order Comment: Speci men Type: VENOUS BLOOD SPECIMEN Ordering Facility: [facility] Address: [address] [place] [address] Performed By: #### 2 4344-4 #### [facility] CLIA [id number] [address] [place] [address] [place] Oxygen saturation in Venous blood 82 % Normal 60-85 [facility] Comment on above: Order Comment: Speci men Type: VENOUS BLOOD SPECIMEN Ordering Facility: [facility] Address: [address] [place] [address] Performed By: #### 2 4344-4 #### [facility] CLIA [id number] [address] [place] [address] [place] Oxyhemoglobin (BldV) [Mass fraction] 80 % Normal 60-85 [facility] Comment on above: Order Comment: Speci men Type: VENOUS BLOOD SPECIMEN Ordering Facility: [facility] Address: [address] [place] [address] Performed By: #### 2 4344-4 #### [facility] CLIA [id number] [address] [place] [address] [place] pH (BldV) 7.35 [pH] Normal 7.32-7.42 [facility] Comment on above: Order Comment: Speci men Type: VENOUS BLOOD SPECIMEN Ordering Facility: [facility] Address: [address] [place] [address] Performed By: #### 2 4344-4 #### [facility] CLIA [id number] [address] [place] [address] [place] pH adjusted to patient's actual temperature (BldV) Normal [facility] Comment on above: Order Comment: Tiffanie rollins Type: VENOUS BLOOD SPECIMEN Ordering Facility: [facility] Address: [address] [place] [address] Performed By: #### 2 4344-4 #### [facility] CLIA [id number] [address] [place] [address] [place] Potassium [Moles/Vol] 4.0 mmol/L Normal 3.5-5.0 [facility] Comment on above: Order Comment: Tiffanie rollins Type: VENOUS BLOOD SPECIMEN Ordering Facility: [facility] Address: [address] [place] [address] Performed By: #### 2 4344-4 #### [facility] CLIA [id number] [address] [place] [address] [place] HIGH SENSITIVITY TROPONIN To n 10-23-2023 Troponin T.cardiac High sensitivity method [Mass/Vol] 43 ng/L High <12 [facility] Comment on above: Order Comment: Tiffanie rollins Type: BLOOD SPECIMEN Ordering Facility: [facility] Address: [address] [place] [address] Result Comment: When assessing risk for acute [...] MACE. Performed By: #### P TTA #### [facility] CLIA [id number] [address] [place] [address] [place] Troponin T.cardiac High sensitivity method [Mass/Vol] 52 ng/L High <12 [facility] Comment on above: Order Comment: Tiffanie ria Type: BLOOD SPECIMEN Ordering Facility: [facility] Address: [address] [place] [address] Result Comment: When assessing risk for acute [...] 30 day MACE. Performed By: #### P [facility], 05078-0 #### [facility] CLIA [id number] [address] [place] [address] [place] HISTORY PHYSICALon HISTORY PHYSICAL HNO ID: [id number] Author: DONN RODRIGUEZ MD Service: Critical Care Author Type: Physician Type: H&P Filed: 10/23/2023 06:48 Note Text: [facility] SERVICE DATE: 10/23/2023 SERVICE TIME: 224 Admission Date: 10/23/2023 Subjective HPI: This is a 78 year old with acute saddle pulmonary embolus. His past medical history significant for angina, hypertension, hyperlipidemia, hypothyroid, obstructive sleep apnea, prediabetes, CKD. He presented to [facility] ED reporting dizziness and lightheadedness. [...] on heparin drip. He was transferred to [facility] ICU. He is hemodynamically stable upon [...] of skin of nose Dr. Chowdary in [place] Stage 3a chronic kidney disease (HCC) Venous insufficiency PAST SURGICAL HISTORY Procedure Laterality Date ARTHRP ACETBLR/PROX FEM PROSTC AGRFT/ALGRFT Right 06/03/2019 Hip replacement, total COLONOSCOPY FLX DX W/COLLJ SPEC WHEN PFRMD 04/21/11 Repeat 10 [id number] LASER GREENLIGHT prostate, [place] NEUROPLASTY AND/TRANSPOS MEDIAN [...] (DEFINITY), , INTRAVENOUS, DIRECTED PRN, Podlogar, Marilia, VMWARE ENGINEER.COOKER SULFITE sodium chloride 0.9 % (flush) 10 mL (BD POSIFLUSH), 10 mL, INTRAVENOUS, DIRECTED PRN, Podlogar, Marilia, VMWARE ENGINEER.COOKER SULFITE metoprolol succinate ER (TOPROL XL) 50 mg [...] Disp: 4 capsule, Rfl: 3 CPAP, AutoPAP [id number]. Mask per preference, tubing, filters, humidity. Lifetime Supplies. Dx: G47.33. Fax 30 day compliance report to [phone]., Disp: 1 Each, Rfl: 999 CPAP, Please [...] daily., Di (more content not included)... Normal [facility] HbA1c (Bld)on 10-23-2023 Average glucose Estimated from glycated hemoglobin (Bld) [Mass/Vol] 128 mg/dL Normal [facility] Comment on above: Order Comment: [facility] [place] Type: BLOOD SPECIMENOrdering Facility: [facility] Address: [address] [place] [address] Result Comment: eAG: (Estimated average glucose) is a calculated value from HgbA1c and is senior patient account representative of the average blood glucose level in the last 2-3 month period. Performed By: #### 5 5454-3 ####[facility] LABCLIA [id number] [facility] [id number] [place] [address] [place] HbA1c (Bld) [Mass fraction] 6.1 % High 4.3-5.6 [facility] Comment on above: Order Comment: [facility] [place] Type: BLOOD SPECIMENOrdering Facility: [facility] Address: [address] [place] [address] Result Comment: Amer [place] Diabetes Association guidelines indicate that patients with HgbA1c in the range 5.7-6.4% are at increased risk for development of diabetes, and intervention by lifestyle modification may be beneficial. HgbA1c greater or equal to 6.5% is considered diagnostic of diabetes. Performed By: #### 5 5454-3 ####[facility] LABCLIA [id number] [facility] [id number] [address] [place] Magnesium [facility] 10-22 Magnesium [Mass/Vol] 1.8 mg/dL Normal 1.7-2.3 [facility] Comment on above: Order Comment: Tiffanie rollins Type: BLOOD SPECIMEN Ordering Facility: [facility] Address: [address] [place] [address] Performed By: #### 3 3959-8, 3016-3, 86857-7, 04350-8 #### [facility] CLIA [id number] [address] [place] [address] [place] NT-proBNP [facility] 10-22 Natriuretic peptide.B prohormone N-Terminal [Mass/Vol] 2953 pg/mL High <450 [facility] Comment on above: Order Comment: Tiffanie rollins Type: BLOOD SPECIMEN Ordering Facility: [facility] Address: [address] [place] [address] Performed By: #### P [facility], 660[address]-6 #### [facility] CLIA [id number] [address] [place] [address] [place] PT panel Coag (PPP)on 2023 INR Coag (PPP) [Relative time] 1.0 {INR} Normal 0.9-1.3 [facility] Comment on above: Order Comment: Tiffanie rollins Type: VENOUS BLOOD SPECIMEN Ordering Facility: [facility] Address: [address] [place] [address] Result Comment: Yvonne min K Antagonist (VKA) Therapeutic Range: INR 2 to 3 (Target INR of 2.5) Note: For patients treated with VKA drugs, such as warfarin, the [employer] 2012 Guideline recommends [...] Chest 2012, 141:7S-47S Saray RA, et al. [facility] 2017, 70: 252-289 Performed By: #### 2 4344-4 #### [facility] CLIA [id number] [address] [place] [address] [place] PT Coag (PPP) [Time] 10.8 s Normal 9.7-13.0 [employer] [facility] Comment on above: Order Comment: Tiffanie rollins Type: VENOUS BLOOD SPECIMEN Ordering Facility: [facility] Address: [address] [place] [address] Performed By: #### 2 4344-4 #### [facility] CLIA [id number] [address] [place] [address] [place] PTT, ANTICOAGULANT THERAPYon 10-23-2023 aPTT Coag (PPP) [Time] 108.8 s High 23.0-32.4 [facility] Comment on above: Order Comment: Tiffanie rollins Type: BLOOD SPECIMENOrdering Facility: [facility] Address: [address] [place] [address] Performed By: #### P TTAC ####[facility] LABORATORYCLIA [id number] [address] [place] aPTT Coag (PPP) [Time] 100.7 s High 23.0-32.4 [facility] Comment on above: Order Comment: Tiffanie rollins Type: BLOOD SPECIMENOrdering Facility: [facility] Address: [address] [place] [address] Performed By: #### P TTAC, 3255-7 ####[facility] [id number] [place] [address] [place] aPTT Coag (PPP) [Time] 42.3 s High 23.0-32.4 [facility] Comment on above: Order Comment: Speci men Type: VENOUS BLOOD SPECIMEN Ordering Facility: [facility] Address: [address] [place] [address] Performed By: #### 2 4344-4 #### [facility] CLIA [id number] [address] [place] [address] [place] Procalcitonin SerPl-mCncon 0 10-23-2023 Procalcitonin [Mass/Vol] 0.07 ng/mL Normal <0.09 [facility] Comment on above: Order Comment: Speci men Type: BLOOD SPECIMEN Ordering Facility: [facility] Address: [address] [place] [address] Result Comment: For a guided interpretation of test results, please visit the Change in Procalcitonin Calculator, [email or web address]. Performed By: #### 3 3959-8, 3016-3, 29404-3, 98392-7 #### [facility] CLIA [id number] [address] [place] [address] [place] STAPHYLOCOCCUS AUREUS AND MR SA SCREEN, PCR, NASALon 10-23-2023 S. aureus and MRSA panel DANNIELLE+probe (Nose) Not detected Normal Not Detected [facility] Comment on above: Order Comment: Speci men Type: BLOOD SPECIMEN Ordering Facility: [facility] Address: [address] [place] [address] Performed By: #### P TTAC #### [facility] CLIA [id number] [address] [place] [address] [place] TSH SerPl-aCncon 10-23-2023 TSH Qn 4.860 m[IU]/L High 0.270-4.20 0 [facility] Comment on above: Order Comment: Speci men Type: BLOOD SPECIMEN Ordering Facility: [facility] Address: [address] [place] [address] Performed By: #### 3 3959-8, 3016-3, 47682-3, 48177-3 #### [facility] [id number] [address] [place] [address] [place] US DVT LOWER [...] AM via verbal communication. --END OF FINDING-- Needle Maker: WILNER Transcribe Date/Time: Oct 23 2023 3:53A Dictated by : ALETHEA BREWSTER MD This examination was interpreted and the report reviewed and electronically signed by: ALETHEA BREWSTER MD on Oct 23 2023 4:14AM EST [id number] [facility] XR CHEST 1V FRONTAL PORTon 0 [...] No evidence of an acute cardiopulmonary process. Needle Maker: WILNER Transcribe Date/Time: Oct 23 2023 3:19A Dictated by : AVRIL CARMEN MD This examination was interpreted and the report reviewed and electronically signed by: AVRIL CARMEN MD on Oct 23 2023 3:19AM EST [id number] [facility] XR Lumbar spine 3 Viewson IMPRESSION: DEGENERATIVE CHANGES DESCRIBED Needle Maker: WILNER Transcribe Date/Time: May 15 2023 12:57P [...] appear unremarkable DIVISION OF RADIOLOGY Provider, [facility] - 05/15/2023 * * *Final Report* * [...] appear unremarkable IMPRESSION IMPRESSION: DEGENERATIVE CHANGES DESCRIBED Needle Maker: PSCB Transcribe Date/Time: May 15 2023 12:57P Dictated by : BAKARI MYERS MD This examination was interpreted and the report reviewed and electronically signed by: BAKARI MYERS MD on May 15 2023 12:59PM EST [facility] Radiology Study observation (narrative) [facility] XR Lumbar spine 3 ViewsOrder ed By: [facility] Provider on 05-15-2023 [facility] Dermatopathologyon 3 Dermatopathology Name FRAN PAREKH Pathologist: ASIF AHUMADA MD Date of Procedure: 01/05/2023 Date Received: 01/06/2023 Date Reported 01/09/2023 Submitting Physician: BRUNA CHOWDARY CNP Location: [facility] Other External # FINAL DIAGNOSIS SKIN, LEFT UPPER ARM, SHAVE BIOPSY: LENTIGO AND BENIGN KERATOSIS, 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 Electronically Signed Out by ASIF AHUMADA M.D. Electronically Signed Out By ASIF AHUMADA MD/[facility] By the signature on this report, the individual or group listed as making the Final Interpretation/Diagnosis certifies that they have reviewed this case. Diagnostic interpretation performed at [facility] [address] [place] [address], [place] [id number] Microscopic Description: There is lentiginous hyperplasia of the epidermis, with mild acanthosis and basal layer pigmentation. There are areas of papillomatosis and acanthosis. A step section was performed. Clinical History: MM vs. other. Shave Biopsy. ([place] office) Specimens Submitted As: A: SKIN, LEFT UPPER ARM Gross Description: Received in formalin is one pitt-brown piece of skin measuring [id number]. The specimen is inked and embedded in toto. ink/01/06/2023 [facility] Dermatopathology [facility] [place] [address] [place] [address] Normal [facility] Comment on above: Performed By: #### D #### Dermatopathology ECHOon 11-07-2022 [facility] LVEF TRANSTHORACIC ECHOon LV Ejection Fraction 59 % [facility] CBC panel Auto (Bld)on 11-02 Erythrocyte distribution width (RBC) [Ratio] 13.2 % 11.5 - 15.0 % [facility] Hematocrit (Bld) [Volume fraction] 47.7 % 39.0 - 51.0 % [facility] Hemoglobin (Bld) [Mass/Vol] 15.9 g/dL 13.0 - 17.0 g/dL [facility] MCH (RBC) [Entitic mass] 31.7 pg 26.0 - 34.0 pg [facility] MCHC (RBC) [Mass/Vol] 33.3 g/dL 30.5 - 36.0 g/dL [facility] MCV (RBC) [Entitic vol] 95.2 fL 80.0 - 100.0 fL [facility] Nucleated RBC (Bld) [#/Vol] <0.01 k/uL [facility] Platelet mean volume (Bld) [Entitic vol] 10.1 fL 9.0 - 12.7 fL [facility] Platelets (Bld) [#/Vol] 235 10*3/uL 150 - 400 k/uL [facility] RBC (Bld) [#/Vol] 5.01 10*6/uL 4.20 - 6.00 m/uL [facility] WBC (Bld) [#/Vol] 7.46 10*3/uL 3.70 - 11.00 k/uL [facility] Comprehensive metabolic 2000 panelon 11-02-2022 Albumin [Mass/Vol] 3.7 g/dL Low 3.9 - 4.9 g/dL [facility] ALP [Catalytic activity/Vol] 83 U/L 38 - 113 U/L [facility] ALT [Catalytic activity/Vol] 27 U/L 10 - 54 U/L [facility] Anion gap [Moles/Vol] 11 mmol/L 9 - 18 mmol/L [facility] AST [Catalytic activity/Vol] 26 U/L 14 - 40 U/L [facility] Bilirubin [Mass/Vol] 0.5 mg/dL 0.2 - 1 .3 mg/dL [facility] Calcium [Mass/Vol] 9.1 mg/dL 8.5 - 10. 2 mg/dL [facility] Chloride [Moles/Vol] 104 mmol/L 97 - 10 5 mmol/L [facility] CO2 [Moles/Vol] 24 mmol/L 22 - 30 mmol/L [facility] Creatinine [Mass/Vol] 1.36 mg/dL High 0.73 - 1.22 mg/dL [facility] Estimated Glomerular Filtration Rate 53 mL/min/1.73m Low >=60 mL/min/1.7 3m [facility] Glucose [Mass/Vol] 116 mg/dL High 74 - 99 mg/dL [facility] Potassium [Moles/Vol] 4.5 mmol/L 3.7 - 5.1 mmol/L [facility] Protein [Mass/Vol] 6.4 g/dL 6.3 - 8.0 g/dL [facility] Sodium [Moles/Vol] 139 mmol/L 136 - 144 mmol/L [facility] Urea nitrogen [Mass/Vol] 20 mg/dL 9 - 24 mg/dL [facility] HbA1c (Bld)on 11-02-2022 Average glucose Estimated from glycated hemoglobin (Bld) [Mass/Vol] 126 mg/dL [facility] HbA1c (Bld) [Mass fraction] 6.0 % High 4.3 - 5.6 % [facility] Lipid 1996 panelon Cholesterol [Mass/Vol] 145 mg/dL <200 mg/dL [facility] Cholesterol in HDL [Mass/Vol] 31 mg/dL Low >39 mg/dL [facility] Cholesterol in LDL [Mass/Vol] 70 mg/dL <100 mg/dL [facility] Cholesterol in LDL/Cholesterol in HDL [Mass ratio] 2.26 {ratio} <2.54 [facility] Cholesterol in VLDL [Mass/Vol] 44 mg/dL High <30 mg/dL [facility] Cholesterol non HDL [Mass/Vol] 114 mg/dL <130 mg/dL [facility] Cholesterol.total/Chol esterol in HDL [Mass ratio] 4.68 {ratio} <5.10 [facility] Fasting Time 13 hrs [facility] Triglyceride [Mass/Vol] 221 mg/dL High <150 mg/dL [facility] TSH BLDon 11-02-2022 TSH Qn 1.850 m[IU]/L 0.270 - 4.200 mIU/L [facility] Comprehensive metabolic 2000 panelon 04-13-2022 Albumin [Mass/Vol] 3.9 g/dL 3.9 - 4.9 g/dL [facility] ALP [Catalytic activity/Vol] 69 U/L 38 - 113 U/L [facility] ALT [Catalytic activity/Vol] 22 U/L 10 - 54 U/L [facility] Anion gap [Moles/Vol] 11 mmol/L 9 - 18 mmol/L [facility] AST [Catalytic activity/Vol] 25 U/L 14 - 40 U/L [facility] Bilirubin [Mass/Vol] 0.5 mg/dL 0.2 - 1 .3 mg/dL [facility] Calcium [Mass/Vol] 9.1 mg/dL 8.5 - 10. 2 mg/dL [facility] Chloride [Moles/Vol] 108 mmol/L High 97 - 10 5 mmol/L [facility] CO2 [Moles/Vol] 22 mmol/L 22 - 30 mmol/L [facility] Creatinine [Mass/Vol] 1.37 mg/dL High 0.73 - 1.22 mg/dL [facility] Estimated Glomerular Filtration Rate 53 mL/min/1.73m Low >=60 mL/min/1.7 3m [facility] Glucose [Mass/Vol] 109 mg/dL High 74 - 99 mg/dL [facility] Potassium [Moles/Vol] 4.4 mmol/L 3.7 - 5.1 mmol/L [facility] Protein [Mass/Vol] 6.8 g/dL 6.3 - 8.0 g/dL [facility] Sodium [Moles/Vol] 141 mmol/L 136 - 144 mmol/L [facility] Urea nitrogen [Mass/Vol] 22 mg/dL 9 - 24 mg/dL [facility] HbA1c (Bld)on 07-14-2021 Average glucose Estimated from glycated hemoglobin (Bld) [Mass/Vol] 128 mg/dL [facility] HbA1c (Bld) [Mass fraction] 6.1 % High 4.3 - 5.6 % [facility] Vital Signs Date Time Vital Sign Value Performing Clinician Caprice jalloh 12-26-2024 13:15-0400 Body temperature 97.6 [degF] Dr. Salvador Del Rosario MD Work Phone: [facility] 12-26-2024 13:15-0400 Diastolic blood pressure 71 mm[Hg] Dr. Salvador Del Rosario MD Work Phone: [facility] 12-26-2024 13:15-0400 Heart rate 50 /min Dr. Salvador Del Rosario MD Work Phone: [facility] 12-26-2024 13:15-0400 Respiratory rate 16 /min Dr. Salvador Del Rosario MD Work Phone: [facility] 12-26-2024 13:15-0400 SaO2% (BldA) [Mass fraction] 98 % Dr. Salvador Del Rosario MD Work Phone: [facility] 12-26-2024 13:15-0400 Systolic blood pressure 150 mm[Hg] Dr. Salvador Del Rosario MD Work Phone: [facility] 12-26-2024 10:28-0400 Body height 180.[address] Salvador Del Rosario MD Work Phone: [facility] 12-26-2024 10:28-0400 Body mass index (BMI) [Ratio] 40.1 kg/m2 Dr. Salvador Del Rosario MD Work Phone: [facility] 12-26-2024 10:28-0400 Body weight 130.[address] Salvador Del Rosario MD Work Phone: [facility] 10-31-2024 10:35-0400 Body mass index (BMI) [Ratio] 42.61 kg/m2 Ghazala José [employer]WARE ENGINEER.COOKER SULFITE Work Phone: [facility] 10-31-2024 10:35-0400 Body weight 132.9 kg Ghazala José [employer] ENGINEER.COOKER SULFITE Work Phone: [facility] 10-31-2024 10:35-0400 Diastolic blood pressure 90 mm[Hg] Ghazala José [employer]WARE ENGINEER.COOKER SULFITE Work Phone: [facility] 10-31-2024 10:35-0400 Heart rate 60 /min Ghazala José [employer]WARE ENGINEER.COOKER SULFITE Work Phone: [facility] 10-31-2024 10:35-0400 Respiratory rate 16 /min Ghazala José [employer]WARE ENGINEER.COOKER SULFITE Work Phone: [facility] 10-31-2024 10:35-0400 SaO2% (BldA) [Mass fraction] 97 % Ghazala José [employer]WARE ENGINEER.COOKER SULFITE Work Phone: [facility] 10-31-2024 10:35-0400 Systolic blood pressure 149 mm[Hg] Ghazala José [employer]WARE ENGINEER.[employer]OOKER SULFITE Work Phone: [facility] 10-28-2024 13:38-0400 Body mass index (BMI) [Ratio] 42.41 kg/m2 Marilia Podlogar [employer] ENGINEER[employer]ULF[employer] Work Phone: [facility] 10-28-2024 13:38-0400 Body temperature 98.1 [degF] Marilia Podlogar [employer] ENGINEER.[employer]ULF[employer] Work Phone: [facility] 10-28-2024 13:38-0400 Body weight 132.27 kg Marilia Podlogar [employer] ENGINEER[employer]ULFITE Work Phone: [facility] 10-28-2024 13:38-0400 Diastolic blood pressure 76 mm[Hg] Marilia Podlogar [employer]WARE ENGINEER.[employer]OOK[employer]ULFITE Work Phone: [facility] 10-28-2024 13:38-0400 Heart rate 54 /min Marilia Podlogar [employer]WARE ENGINEER.COOKER SULFITE Work Phone: [facility] 10-28-2024 13:38-0400 Respiratory rate 18 /min Marilia Podlogar [employer]WARE ENGINEER.COOK[employer] SULFITE Work Phone: [facility] 10-28-2024 13:38-0400 SaO2% (BldA) [Mass fraction] 95 % Marilia Podlogar [employer]WARE ENGINEER.COOKER SULFITE Work Phone: [facility] 10-28-2024 13:38-0400 Systolic blood pressure 138 mm[Hg] Marilia Podlogar [employer] ENGINEER[employer]COOK[employer] SULFITE Work Phone: [facility] 10-24-2024 08:09-0400 Body temperature 98 [degF] Dr. Salvador Del Rosario MD Work Phone: [facility] 10-24-2024 08:09-0400 Diastolic blood pressure 69 mm[Hg] Dr. Salvador Del Rosario MD Work Phone: [facility] 10-24-2024 08:09-0400 Heart rate 62 /min Dr. Salvador Del Rosario MD Work Phone: [facility] 10-24-2024 08:09-0400 Respiratory rate 18 /min Dr. Salvador Del Rosario MD Work Phone: 2(168)485-364[address] [place] [address] 10-24-2024 08:09-0400 SaO2% (BldA) [Mass fraction] 95 % Dr. Salvador Del Rosario MD Work Phone: 7(112)966-648217 [place] [address] 10-24-2024 08:09-0400 Systolic blood pressure 149 mm[Hg] Dr. Salvador Del Rosario MD Work Phone: 1(695)557-333617 [place] [address] 10-24-2024 05:48-0400 Body mass index (BMI) [Ratio] 42.9 kg/m2 Dr. Salvador Del Rosario MD Work Phone: 4(904)851-405217 [place] [address] 10-24-2024 05:48-0400 Body weight [address] Salvador Del Rosario MD Work Phone: 8(676)513-725717 [place] [address] 10-22-2024 06:00-0400 Body temperature 98.9 [degF] Dr. Salvador Del Rosario MD Work Phone: 5(071)271-045317 [place] [address] 10-22-2024 06:00-0400 Diastolic blood pressure 70 mm[Hg] Dr. Salvador Del Rosario MD Work Phone: 4(442)120-004717 [place] [address] 10-22-2024 06:00-0400 Heart rate 54 /min Dr. Salvador Del Rosario MD Work Phone: 5(816)565-868117 [place] [address] 10-22-2024 06:00-0400 Respiratory rate 19 /min Dr. Salvador Del Rosario MD Work Phone: 8(104)703-216017 [place] [address] 10-22-2024 06:00-0400 SaO2% (BldA) [Mass fraction] 93 % Dr. Salvador Del Rosario MD Work Phone: 4(327)222-870617 [place] [address] 10-22-2024 06:00-0400 Systolic blood pressure 105 mm[Hg] Dr. Salvador Del Rosario MD Work Phone: 9(276)277-455917 [place] [address] 10-22-2024 05:50-0400 Body height 177.[address] Salvador Del Rosario MD Work Phone: 4(175)693-789517 [place] [address] 10-21-2024 23:17-0400 Body height 177.[address] Salvador Del Rosario MD Work Phone: [facility] 10-21-2024 23:17-0400 Body mass index (BMI) [Ratio] 42.9 kg/m2 Dr. Salvador Del Rosario MD Work Phone: [facility] 10-21-2024 23:17-0400 Body weight 135.[address] Salvador Del Rosario MD Work Phone: [facility] 10-08-2024 09:35-0400 Body mass index (BMI) [Ratio] 42.61 kg/m2 Marilia Podlogar [employer] ENGINEER[employer] Work Phone: [facility] 10-08-2024 09:35-0400 Body weight 132.9 kg Marilia Podlogar [employer] ENGINEER[employer] Work Phone: [facility] 10-08-2024 09:35-0400 Diastolic blood pressure 76 mm[Hg] Marilia Podlogar [employer]WARE ENGINEER[employer] Work Phone: [facility] 10-08-2024 09:35-0400 Heart rate 58 /min Marilia Podlogar [employer] ENGINEER[employer] Work Phone: [facility] 10-08-2024 09:35-0400 Respiratory rate 18 /min Marilia Podlogar [employer]WARE ENGINEER.[employer] Work Phone: [facility] 10-08-2024 09:35-0400 SaO2% (BldA) [Mass fraction] 98 % Marilia Podlogar [employer]WARE ENGINEER.[employer] Work Phone: [facility] 10-08-2024 09:35-0400 Systolic blood pressure 118 mm[Hg] Marilia Podlogar [employer] ENGINEER[employer] Work Phone: [facility] 10-07-2024 13:40-0400 Body temperature 98.1 [degF] Dr. Salvador Del Rosario MD Work Phone: [facility] 10-07-2024 13:40-0400 Diastolic blood pressure 80 mm[Hg] Dr. Salvador Del Rosario MD Work Phone: 0(430)635-573517 [place] [address] 10-07-2024 13:40-0400 Heart rate 48 /min Dr. Salvador Del Rosario MD Work Phone: 4(549)881-658917 [place] [address] 10-07-2024 13:40-0400 Respiratory rate 18 /min Dr. Salvador Del Rosario MD Work Phone: 5(699)897-179017 [place] [address] 10-07-2024 13:40-0400 SaO2% (BldA) [Mass fraction] 96 % Dr. Salvador Del Rosario MD Work Phone: 6(033)536-346517 [place] [address] 10-07-2024 13:40-0400 Systolic blood pressure 137 mm[Hg] Dr. Salvador Del Rosario MD Work Phone: 3(673)493-403317 [place] [address] 10-07-2024 10:53-0400 Body height 177.[address] Salvador Del Rosario MD Work Phone: 1(797)278-214017 [place] [address] 10-07-2024 10:53-0400 Body mass index (BMI) [Ratio] 41.5 kg/m2 Dr. Salvador Del Rosario MD Work Phone: 7(079)493-268017 [place] [address] 10-07-2024 10:53-0400 Body weight 131.[address] Salvador Del Rosario MD Work Phone: 7(734)250-646817 [place] [address] 09-17-2024 09:36-0400 Body height 177.[address] Salvador Del Rosario MD Work Phone: 5(205)818-571017 [place] [address] 09-17-2024 09:36-0400 Body mass index (BMI) [Ratio] 42.3 kg/m2 Dr. Salvador Del Rosario MD Work Phone: 7(470)379-667917 [place] [address] 09-17-2024 09:36-0400 Body weight 133.[address] Salvador Del Rosario MD Work Phone: 8(384)595-151617 [place] [address] 08-31-2024 13:47-0400 Diastolic blood pressure 78 mm[Hg] Dr. Salvador Del Rosario MD Work Phone: 8(698)298-007117 [place] [address] 08-31-2024 13:47-0400 Heart rate 78 /min Dr. Salvador Del Rosario MD Work Phone: [facility] 08-31-2024 13:47-0400 Respiratory rate 16 /min Dr. Salvador Del Rosario MD Work Phone: [facility] 08-31-2024 13:47-0400 SaO2% (BldA) [Mass fraction] 98 % Dr. Salvador Del Rosario MD Work Phone: [facility] 08-31-2024 13:47-0400 Systolic blood pressure 134 mm[Hg] Dr. Salvador Del Rosario MD Work Phone: 8(248)634-856717 [place] [address] 08-31-2024 11:25-0400 Body mass index (BMI) [Ratio] 43 kg/m2 Dr. Salvador Del Rosario MD Work Phone: 7(532)428-523817 [place] [address] 08-31-2024 11:25-0400 Body weight 136.[address] Salvador Del Rosario MD Work Phone: 4(943)402-321569 [place] [address] 08-31-2024 11:23-0400 Body temperature 97.7 [degF] Dr. Salvador Del Rosario MD Work Phone: [facility] 08-13-2024 11:45-0400 Body height 176.6 cm Marilia Podlogar [employer] Work Phone: [facility] 08-13-2024 11:45-0400 Body mass index (BMI) [Ratio] 42.88 kg/m2 Marilia Podlogar [employer] Work Phone: [facility] 08-13-2024 11:45-0400 Body weight 133.72 kg Marilia Podlogar [employer] Work Phone: [facility] 08-13-2024 11:45-0400 Diastolic blood pressure 82 mm[Hg] Marilia Podlogar [employer] Work Phone: [facility] 08-13-2024 11:45-0400 Heart rate 65 /min Marilia Podlogar [employer] Work Phone: [facility] 08-13-2024 11:45-0400 Respiratory rate 18 /min Marilia Podlogar [employer] Work Phone: [facility] 08-13-2024 11:45-0400 SaO2% (BldA) [Mass fraction] 95 % Marilia Podlogar [employer] Work Phone: [facility] 08-13-2024 11:45-0400 Systolic blood pressure 118 mm[Hg] Marilia Podlogar [employer] Work Phone: [facility] 07-04-2024 11:22-0500 Body temperature 97.5 [degF] Dr. Salvador Del Rosario MD Work Phone: 7(451)833-964469 [place] [address] 07-04-2024 11:22-0500 Diastolic blood pressure 59 mm[Hg] Dr. Salvador Del Rosario MD Work Phone: 4(714)944-825369 [place] [address] 07-04-2024 11:22-0500 Heart rate 59 /min Dr. Salvador Del Rosario MD Work Phone: 0(300)942-184969 [place] [address] 07-04-2024 11:22-0500 Respiratory rate 16 /min Dr. Salvador Del Rosario MD Work Phone: [facility] 07-04-2024 11:22-0500 SaO2% (BldA) [Mass fraction] 96 % Dr. Salvador Del Rosario MD Work Phone: [facility] 07-04-2024 11:22-0500 Systolic blood pressure 114 mm[Hg] Dr. Salvador Del Rosario MD Work Phone: 0(865)956-236169 [place] [address] 07-04-2024 08:49-0500 Body height 177.[address] Salvador Del Rosario MD Work Phone: 2(636)987-233817 [place] [address] 07-04-2024 08:49-0500 Body mass index (BMI) [Ratio] 42 kg/m2 Dr. Salvador Del Rosario MD Work Phone: 0(892)901-165669 [place] [address] 07-04-2024 08:49-0500 Body weight [address] Salvador Del Rosario MD Work Phone: [facility] 04-01-2024 11:45-0500 Body mass index (BMI) [Ratio] 38.45 kg/m2 Marilia Podlogar [employer] Work Phone: [facility] 04-01-2024 11:45-0500 Body temperature 97.9 [degF] Marilia Podlogar [employer] Work Phone: [facility] 04-01-2024 11:45-0500 Body weight 128.6 kg Marilia Podlogar [employer] Work Phone: [facility] 04-01-2024 11:45-0500 Diastolic blood pressure 82 mm[Hg] Marilia Podlogar [employer] Work Phone: [facility] 04-01-2024 11:45-0500 Heart rate 59 /min Marilia Podlogar [employer] Work Phone: [facility] 04-01-2024 11:45-0500 Respiratory rate 18 /min Marilia Podlogar [employer] Work Phone: [facility] 04-01-2024 11:45-0500 SaO2% (BldA) [Mass fraction] 96 % Marilia Podlogar [employer] Work Phone: [facility] 04-01-2024 11:45-0500 Systolic blood pressure 138 mm[Hg] Marilia Podlogar [employer] Work Phone: [facility] 03-28-2024 14:00-0500 Body temperature 97.8 [degF] Dr. Salvador Del Rosario MD Work Phone: [facility] 03-28-2024 14:00-0500 Diastolic blood pressure 75 mm[Hg] Dr. Salvador Del Rosario MD Work Phone: [facility] 03-28-2024 14:00-0500 Heart rate 62 /min Dr. Salvador Del Rosario MD Work Phone: [facility] 03-28-2024 14:00-0500 Respiratory rate 16 /min Dr. Salvador Del Rosario MD Work Phone: [facility] 03-28-2024 14:00-0500 SaO2% (BldA) [Mass fraction] 96 % Dr. Salvador Del Rosario MD Work Phone: [facility] 03-28-2024 14:00-0500 Systolic blood pressure 125 mm[Hg] Dr. Salvador Del Rosario MD Work Phone: 5(266)586-132569 [place] [address] 03-27-2024 11:14-0500 Body mass index (BMI) [Ratio] 41.2 kg/m2 Dr. Salvador Del Rosario MD Work Phone: 1(503)720-819769 [place] [address] 03-27-2024 11:14-0500 Body weight 130.[address] Salvador Del Rosario MD Work Phone: 6(109)286-668817 [place] [address] 02-14-2024 11:25-0400 Body mass index (BMI) [Ratio] 39.53 kg/m2 Marilia Podlogar [employer] Work Phone: [facility] 02-14-2024 11:25-0400 Body weight 132.2 kg Marilia Podlogar [employer] Work Phone: [facility] 02-14-2024 11:25-0400 Diastolic blood pressure 84 mm[Hg] Marilia Podlogar [employer] Work Phone: [facility] 02-14-2024 11:25-0400 Heart rate 60 /min Marilia Podlogar [employer] Work Phone: [facility] 02-14-2024 11:25-0400 Respiratory rate 18 /min Marilia Podlogar [employer] Work Phone: [facility] 02-14-2024 11:25-0400 SaO2% (BldA) [Mass fraction] 95 % Marilia Podlogar [employer] Work Phone: [facility] 02-14-2024 11:25-0400 Systolic blood pressure 138 mm[Hg] Marilia Podlogar [employer] Work Phone: [facility] 01-29-2024 11:06-0400 Body mass index (BMI) [Ratio] 38.78 kg/m2 Marilia Podlogar [employer] Work Phone: [facility] 01-29-2024 11:06-0400 Body temperature 97.59 [degF] Marilia Podlogar [employer] Work Phone: [facility] 01-29-2024 11:06-0400 Body weight 129.7 kg Marilia Podlogar [employer] Work Phone: [facility] 01-29-2024 11:06-0400 Diastolic blood pressure 92 mm[Hg] Marilia Podlogar [employer] Work Phone: [facility] 01-29-2024 11:06-0400 Heart rate 59 /min Marilia Podlogar [employer] Work Phone: [facility] 01-29-2024 11:06-0400 Respiratory rate 16 /min Marilia Podlogar [employer] Work Phone: [facility] 01-29-2024 11:06-0400 SaO2% (BldA) [Mass fraction] 96 % Marilia Podlogar [employer] Work Phone: [facility] 01-29-2024 11:06-0400 Systolic blood pressure 144 mm[Hg] Marilia Podlogar [employer] Work Phone: [facility] 01-24-2024 12:02-0400 Body mass index (BMI) [Ratio] 38.9 kg/m2 Marilia Podlogar [employer] Work Phone: [facility] 01-24-2024 12:02-0400 Body temperature 98.2 [degF] Marilia Podlogar [employer] Work Phone: [facility] 01-24-2024 12:02-0400 Body weight 130.1 kg Marilia Podlogar [employer] Work Phone: [facility] 01-24-2024 12:02-0400 Diastolic blood pressure 90 mm[Hg] Marilia Podlogar [employer] Work Phone: [facility] 01-24-2024 12:02-0400 Heart rate 81 /min Marilia Podlogar [employer] Work Phone: [facility] 01-24-2024 12:02-0400 Respiratory rate 16 /min Marilia Podlogar [employer] Work Phone: [facility] 01-24-2024 12:02-0400 SaO2% (BldA) [Mass fraction] 97 % Marilia Podlogar [employer] Work Phone: [facility] 01-24-2024 12:02-0400 Systolic blood pressure 134 mm[Hg] Marilia Podlogar [employer] Work Phone: [facility] 01-22-2024 11:25-0400 Body mass index (BMI) [Ratio] 39.14 kg/m2 Agnes Del Rosario MD Work Phone: [facility] 01-22-2024 11:25-0400 Body temperature 97.9 [degF] Agnes Del Rosario MD Work Phone: [facility] 01-22-2024 11:25-0400 Body weight 130.91 kg Agnes Del Rosario MD Work Phone: [facility] 01-22-2024 11:25-0400 Diastolic blood pressure 72 mm[Hg] Agnes Del Rosario MD Work Phone: [facility] 01-22-2024 11:25-0400 Heart rate 76 /min Agnes Del Rosario MD Work Phone: [facility] 01-22-2024 11:25-0400 Respiratory rate 18 /min Agnes Del Rosario MD Work Phone: [facility] 01-22-2024 11:25-0400 SaO2% (BldA) [Mass fraction] 98 % Agnes Del Rosario MD Work Phone: [facility] 01-22-2024 11:25-0400 Systolic blood pressure 124 mm[Hg] Agnes Del Rosario MD Work Phone: [facility] 01-19-2024 09:40-0400 Body mass index (BMI) [Ratio] 38.27 kg/m2 Marilia Pylelognarciso [employer] Work Phone: [facility] 01-19-2024 09:40-0400 Body temperature 98.01 [degF] Marilia Podlogar [employer] Work Phone: [facility] 01-19-2024 09:40-0400 Body weight 128 kg Marilia Podlogar [employer] Work Phone: [facility] 01-19-2024 09:40-0400 Diastolic blood pressure 94 mm[Hg] Marilia Podlogar [employer] Work Phone: [facility] 01-19-2024 09:40-0400 Heart rate 84 /min Marilia Podlogar [employer] Work Phone: [facility] 01-19-2024 09:40-0400 Respiratory rate 18 /min Marilia Podlogar [employer] Work Phone: [facility] 01-19-2024 09:40-0400 SaO2% (BldA) [Mass fraction] 98 % Marilia Podlogar [employer] Work Phone: [facility] 01-19-2024 09:40-0400 Systolic blood pressure 132 mm[Hg] Marilia Podlogar [employer] Work Phone: [facility] 01-18-2024 12:03-0400 Body mass index (BMI) [Ratio] 38.93 kg/m2 Joleen Munoz [employer] Work Phone: [facility] 01-18-2024 12:03-0400 Body temperature 97.39 [degF] Joleen Munoz [employer] Work Phone: [facility] 01-18-2024 12:03-0400 Body weight 130.2 kg Joleen Munoz APRN.[employer] Work Phone: [facility] 01-18-2024 12:03-0400 Diastolic blood pressure 76 mm[Hg] Joleen Munoz SELENE.[employer] Work Phone: [facility] 01-18-2024 12:03-0400 Heart rate 79 /min Joleen Munoz SELENE.[employer] Work Phone: [facility] 01-18-2024 12:03-0400 Respiratory rate 18 /min Joleen Munoz APRN.[employer] Work Phone: [facility] 01-18-2024 12:03-0400 SaO2% (BldA) [Mass fraction] 97 % Joleen Munoz SELENE.[employer] Work Phone: [facility] 01-18-2024 12:03-0400 Systolic blood pressure 126 mm[Hg] Joleen Munoz APRN.[employer] Work Phone: [facility] 01-18-2024 08:39-0400 Diastolic blood pressure 86 mm[Hg] Pradhab Kirupaharan DO Work Phone: [facility] 01-18-2024 08:39-0400 Heart rate 72 /min Pradhab Kirupaharan DO Work Phone: [facility] 01-18-2024 08:39-0400 Respiratory rate 18 /min Pradhab Kirupaharan DO Work Phone: [facility] 01-18-2024 08:39-0400 SaO2% (BldA) [Mass fraction] 97 % Pradhab Kirupaharan DO Work Phone: [facility] 01-18-2024 08:39-0400 Systolic blood pressure 143 mm[Hg] Pradhab Kirupaharan DO Work Phone: [facility] 12-19-2023 14:51-0400 Body mass index (BMI) [Ratio] 38.78 kg/m2 Xuan Pepe MD Work Phone: [facility] 12-19-2023 14:51-0400 Body weight 129.7 kg Xuan Pepe MD Work Phone: [facility] 12-19-2023 14:51-0400 Diastolic blood pressure 82 mm[Hg] Xuan Pepe MD Work Phone: [facility] 12-19-2023 14:51-0400 Heart rate 70 /min Xuan Pepe MD Work Phone: [facility] 12-19-2023 14:51-0400 Systolic blood pressure 145 mm[Hg] Xuan Pepe MD Work Phone: [facility] 12-18-2023 08:00-0400 Diastolic blood pressure 83 mm[Hg] Yogesh Golias PT Work Phone: [facility] 12-18-2023 08:00-0400 Heart rate 55 /min Yogesh Golias PT Work Phone: [facility] 12-18-2023 08:00-0400 Systolic blood pressure 130 mm[Hg] Yogesh Golias PT Work Phone: [facility] 11-09-2023 10:42-0400 Body height 182.9 cm Pradhab Kirupaharan DO Work Phone: [facility] 11-09-2023 10:42-0400 Body mass index (BMI) [Ratio] 38.52 kg/m2 Pradhab Kirupaharan DO Work Phone: [facility] 11-09-2023 10:42-0400 Body weight 128.82 kg Pradhab Kirupaharan DO Work Phone: [facility] 11-09-2023 10:42-0400 Diastolic blood pressure 84 mm[Hg] Pradhab Kirupaharan DO Work Phone: [facility] 11-09-2023 10:42-0400 Heart rate 55 /min Pradhab Kirupaharan DO Work Phone: [facility] 11-09-2023 10:42-0400 SaO2% (BldA) [Mass fraction] 96 % Prakarthikeyan Lopezaharan DO Work Phone: [facility] 11-09-2023 10:42-0400 Systolic blood pressure 141 mm[Hg] Pradhab Kirupaharan DO Work Phone: [facility] 10-30-2023 13:14-0400 Body mass index (BMI) [Ratio] 38.52 kg/m2 Agnes Del Rosario MD Work Phone: [facility] 10-30-2023 13:14-0400 Body weight 128.82 kg Agnes Del Rosario MD Work Phone: [facility] 10-30-2023 13:14-0400 Diastolic blood pressure 86 mm[Hg] Agnes Del Rosario MD Work Phone: [facility] 10-30-2023 13:14-0400 Heart rate 72 /min Agnes Del Rosario MD Work Phone: [facility] 10-30-2023 13:14-0400 Respiratory rate 20 /min Agnes Del Rosario MD Work Phone: [facility] 10-30-2023 13:14-0400 SaO2% (BldA) [Mass fraction] 95 % Agnes Del Rosario MD Work Phone: [facility] 10-30-2023 13:14-0400 Systolic blood pressure 138 mm[Hg] Agnes Del Rosario MD Work Phone: [facility] 10-09-2023 07:16-0400 Body mass index (BMI) [Ratio] 42.39 kg/m2 Sherrell Rouse APRN.[employer] Work Phone: [facility] 10-09-2023 07:16-0400 Body temperature 96.91 [degF] Sherrell Rouse [employer] Work Phone: [facility] 10-09-2023 07:16-0400 Body weight 134 kg Sherrell Rouse [employer] Work Phone: [facility] 10-09-2023 07:16-0400 Diastolic blood pressure 80 mm[Hg] Sherrell Rouse [employer] Work Phone: [facility] 10-09-2023 07:16-0400 Heart rate 78 /min Sherrell Rouse [employer] Work Phone: [facility] 10-09-2023 07:16-0400 Respiratory rate 16 /min Sherrell Rouse [employer] ENGINE[employer] Work Phone: [facility] 10-09-2023 07:16-0400 SaO2% (BldA) [Mass fraction] 96 % Sherrell Rouse [employer] Work Phone: [facility] 10-09-2023 07:16-0400 Systolic blood pressure 142 mm[Hg] Sherrell Rouse [employer] Work Phone: [facility] 08-01-2023 09:27-0400 Body weight 129.37 kg Marilia Podlogar [employer] Work Phone: [facility] 08-01-2023 09:27-0400 Diastolic blood pressure 82 mm[Hg] Marilia Podlogar [employer] Work Phone: [facility] 08-01-2023 09:27-0400 Heart rate 65 /min Marilia Podlogar [employer] Work Phone: [facility] 08-01-2023 09:27-0400 Respiratory rate 18 /min Marilia Podlogar [employer] Work Phone: [facility] 08-01-2023 09:27-0400 SaO2% (BldA) [Mass fraction] 94 % Marilia Podlogar [employer] Work Phone: [facility] 08-01-2023 09:27-0400 Systolic blood pressure 122 mm[Hg] Marilia Podlogar [employer] Work Phone: [facility] 06-16-2023 11:38-0500 Diastolic blood pressure 97 mm[Hg] Marilia Podlogar [employer] Work Phone: [facility] 06-16-2023 11:38-0500 Heart rate 66 /min Marilia Podlogar [employer] Work Phone: [facility] 06-16-2023 11:38-0500 Systolic blood pressure 161 mm[Hg] Marilia Podlogar [employer] ENG[employer] Work Phone: [facility] 06-16-2023 10:49-0500 Body weight 133.81 kg Marilia Podlogar [employer] Work Phone: [facility] 06-16-2023 10:49-0500 Respiratory rate 18 /min Marilia Podlogar [employer] ENG[employer] Work Phone: [facility] 06-16-2023 10:49-0500 SaO2% (BldA) [Mass fraction] 97 % Marilia Podlogar [employer] Work Phone: [facility] 11-02-2022 08:38-0400 Body weight 132.27 kg Marilia Podlogar [employer] Work Phone: [facility] 11-02-2022 08:38-0400 Diastolic blood pressure 86 mm[Hg] Marilia Podlogar [employer] Work Phone: [facility] 11-02-2022 08:38-0400 Heart rate 60 /min Marilia Podlogar [employer] Work Phone: [facility] 11-02-2022 08:38-0400 Respiratory rate 18 /min Marilia Podlogar [employer] ENG[employer] Work Phone: [facility] 11-02-2022 08:38-0400 SaO2% (BldA) [Mass fraction] 96 % Marilia Podlogar [employer] Work Phone: [facility] 11-02-2022 08:38-0400 Systolic blood pressure 132 mm[Hg] Marilia Podlogar [employer] Work Phone: [facility] 05-23-2022 11:01-0500 Body temperature 97.59 [degF] Cole Campos MD Work Phone: [facility] 05-23-2022 11:01-0500 Body weight 127.46 kg Cole Campos MD Work Phone: [facility] 05-23-2022 11:01-0500 Diastolic blood pressure 76 mm[Hg] Cole Campos MD Work Phone: [facility] 05-23-2022 11:01-0500 Heart rate 94 /min Cole Campos MD Work Phone: [facility] 05-23-2022 11:01-0500 Respiratory rate 18 /min Cole Campos MD Work Phone: [facility] 05-23-2022 11:01-0500 SaO2% (BldA) [Mass fraction] 97 % Cole Campos MD Work Phone: [facility] 05-23-2022 11:01-0500 Systolic blood pressure 122 mm[Hg] Cole Campos MD Work Phone: [facility] 04-13-2022 10:17-0500 Diastolic blood pressure 84 mm[Hg] Agnes Del Rosario MD Work Phone: [facility] 04-13-2022 10:17-0500 Systolic blood pressure 138 mm[Hg] Agnes Del Rosario MD Work Phone: [facility] 04-13-2022 09:20-0500 Body height 177.8 cm Agnes Del Rosario MD Work Phone: [facility] 04-13-2022 09:20-0500 Body weight 128.37 kg Agnes Del Rosario MD Work Phone: [facility] 04-13-2022 09:20-0500 Heart rate 62 /min Agnes Del Rosario MD Work Phone: [facility] 04-13-2022 09:20-0500 Respiratory rate 18 /min Agnes Del Rosario MD Work Phone: [facility] 02-11-2022 08:48-0400 Body temperature 97.11 [degF] Bruno Marquez Jr., MD Work Phone: [facility] 02-11-2022 08:48-0400 Body weight 124.74 kg Bruno Marquez Jr., MD Work Phone: [facility] 02-11-2022 08:48-0400 Diastolic blood pressure 73 mm[Hg] Bruno Marquez Jr., MD Work Phone: [facility] 02-11-2022 08:48-0400 Heart rate 78 /min Bruno Marquez Jr., MD Work Phone: [facility] 02-11-2022 08:48-0400 Respiratory rate 18 /min Bruno Marquez Jr., MD Work Phone: [facility] 02-11-2022 08:48-0400 SaO2% (BldA) [Mass fraction] 97 % Bruno Marquez Jr., MD Work Phone: [facility] 02-11-2022 08:48-0400 Systolic blood pressure 120 mm[Hg] Bruno Marquez Jr., MD Work Phone: [facility] 12-08-2021 11:00-0400 Diastolic blood pressure 86 mm[Hg] Yogesh Golias PT Work Phone: [facility] 12-08-2021 11:00-0400 Systolic blood pressure 124 mm[Hg] Yogesh Golias PT Work Phone: [facility] 11-11-2021 09:32-0400 Body temperature 97.39 [degF] Tri Athy PA-C Work Phone: [facility] 11-11-2021 09:32-0400 Body weight 130.64 kg Tri Athy PA-C Work Phone: [facility] 11-11-2021 09:32-0400 Diastolic blood pressure 90 mm[Hg] Tri Athy PA-C Work Phone: [facility] 11-11-2021 09:32-0400 Heart rate 72 /min Tri Athy PA-C Work Phone: [facility] 11-11-2021 09:32-0400 Respiratory rate 20 /min Tri Fairy PA-C Work Phone: [facility] 11-11-2021 09:32-0400 SaO2% (BldA) [Mass fraction] 97 % Tri Fairy PA-C Work Phone: [facility] 11-11-2021 09:32-0400 Systolic blood pressure 140 mm[Hg] Tri Fairy PA-C Work Phone: [facility] 1945 00:00-0400 >na< Bruna Chowdary Dept. of Dermatology Encounters Encounter Date Encounter Type Care Provider Facility Start: 01-30-2025 End: 01-30-2025 Office outpatient visit 15 minutes Brunaalverto Pedro [employer] Work Phone: [facility] Comment on above: Nevus (Primary Dx); Lentigo; Seborrheic keratosis; Screening exam for skin cancer; Xerosis cutis; History of nonmelanoma skin cancer; Neoplasm of uncertain behavior of skin; Venous stasis dermatitis, unspecified laterality Start: 01-30-2025 End: 01-30-2025 ambulatory [facility] Ambulatory Start: 12-26-2024 Non-patient / Non-visit Alex Calix nd DO -[facility] Start: 12-26-2024 End: 12-26-2024 Admission to same day surgery center Alex Sher DO -Endoscopy Work Phone: Start: 12-26-2024 End: 12-26-[address] Salvador Del Rosario MD Work Phone: -Endoscopy Start: 12-23-2024 End: 12-23-2024 Telephone encounter Agnes Del Rosario MD Work Phone: [facility] Comment on above: Results Start: 11-15-2024 End: 11-19-2024 Patient Outreach John Dunlap RN [employer] [facility] Comment on above: Transition Of Care ( Second outreach) Weekly phone contact (Recurring) for Transitional Care Management Forms Start: 11-13-2024 End: 11-15-2024 Refill Agnes Del Rosario MD Work Phone: [facility] Comment on above: Refill Request Start: 11-06-2024 End: 11-06-2024 Patient encounter procedure Melanie Guajardo [place] [facility] Work Phone: Start: 11-06-2024 End: 11-06-[address] Salvador Del Rosario MD Work Phone: [facility] Start: 11-04-2024 End: 11-05-2024 Refill Agnes Del Rosario MD Work Phone: [address] [place] [address] Comment on above: Refill Request Start: 10-31-2024 End: 10-31-2024 Patient encounter procedure Ghazala Kumar APRN.[employer]OOK[employer] Work Phone: Neurology Comment on above: MARTIN on CPAP (Primary Dx) Transition Of Care ( First outreach) Weekly phone contact (Recurring) for Transitional Care Management Start: 10-31-2024 End: 10-31-2024 ambulatory John Dunlap RN [employer] Start: 10-30-2024 End: 10-30-2024 Telephone encounter Bruno Marquez MD Work Phone: Neurology Comment on above: Sleep appt needed Start: 10-28-2024 End: 10-28-2024 ambulatory AGNES DEL ROSARIO Facility:[facility] Start: 10-28-2024 End: 10-28-2024 Patient encounter procedure Marilia Orozco VMWARE ENGINEER.[employer] Work Phone: [facility] [place] Comment on above: Hospital discharge f ollow-up (Primary Dx); Cholangitis (HCC); Nausea and vomiting, unspecified vomiting type; Fever of unknown origin Start: 10-25-2024 End: 10-25-2024 Patient Outreach John Dunlap RN [employer] Comment on above: Transition Of Care ( Initial Outreach-AMADEO [place] 10/24/2024) Initial phone contact for Transitional Care Management Start: 10-24-2024 Non-patient / Non-visit Alex Frie nd DO -[facility] Start: 10-24-2024 Non-patient / Non-visit Dr. Marleny Fitzgerald DO [facility] Work Phone: Start: 10-23-2024 Non-patient / Non-visit Alex Frie nd DO [facility] Start: 10-23-2024 Non-patient / Non-visit Dr. Marleny Fitzgerald [facility] Work Phone: Start: 10-22-2024 Non-patient / Non-visit Alex Frie nd DO -[facility] Start: 10-22-2024 End: 10-22-2024 Telephone encounter Agnes Del Rosario MD Work Phone: [facility] [place] Comment on above: request for updated med list; Patient Update (Admitted to [facility]) Start: 10-22-2024 ambulatory Werner Bueno ty:[facility] Start: 10-22-2024 End: 10-24-2024 Evaluation and management of inpatient Dr. Werner Nunn DO [facility] 3 Work Phone: Start: 10-09-2024 End: 10-10-2024 Follow-up encounter Ree Ram LPN Internal Medicine [place] Comment on above: Xray Results Start: 10-08-2024 End: 10-08-2024 Subsequent hospital visit by physician Radha [facility] [place] Work Phone: Radiology Comment on above: Left hand pain [M79. 642] Start: 10-08-2024 End: 10-08-2024 Patient encounter procedure Marilia Orozco VMWARE ENGINEER.[employer] Work Phone: [facility] [place] Comment on above: Left hand pain (Prim delia Dx); Left wrist pain Start: 10-08-2024 End: 10-08-2024 ambulatory AGNES DEL ROSARIO Facility:[facility] Start: 10-07-2024 ambulatory Alex Friend Facility :[facility] Start: 10-07-2024 End: 10-07-2024 Non-patient / Non-visit Alex Sher -[facility] Start: 10-07-2024 End: 10-07-2024 Admission to same day surgery center Alex Sher DO -Endoscopy Work Phone: Start: 10-07-2024 End: 10-07-[address] Salvador Del Rosario MD Work Phone: [facility] Work Phone: Start: 09-25-2024 End: 09-25-2024 Office outpatient visit 25 minutes Victor Manuel Burrows DO Work Phone: Pulmonology Comment on above: History of pulmonary embolism (Primary Dx); BMI 38.0-38.9,adult; History of venous thromboembolism; Stage 3a chronic kidney disease (HCC); Venous insufficiency (chronic) (peripheral) Start: 09-25-2024 End: 09-25-2024 ambulatory AGNES DEL ROSARIO Facility:[facility] Start: 09-17-2024 End: 09-17-[address] Isaias Velez MD -[facility] Start: 09-17-2024 End: 09-17-[address] Salvador Del Rosario MD Work Phone: [facility] Work Phone: Start: 08-31-2024 End: 08-31-2024 Emergency department patient visit Dr. Isaias Trivedi MD -Emergency Department Work Phone: Start: 08-31-2024 End: 08-31-2024 ambulatory COLE CAMPOS Facility:[facility] Start: 08-31-2024 End: 08-31-2024 Patient encounter procedure Cole Campos MD Work Phone: [facility] Comment on above: Abdominal pain, unsp ecified abdominal location (Primary Dx) Start: 08-27-2024 End: 08-27-2024 Telephone encounter Agnes Del Rosario MD Work Phone: [facility] Comment on above: medication form (Ant icoagulant authorization form) Start: 08-16-2024 End: 08-16-2024 Follow-up encounter Marilia Orozco APRN.CNP Work Phone: [facility] [place] Comment on above: Results Start: 08-15-2024 End: 08-15-2024 ambulatory AGNES DEL ROSARIO Facility: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 Start: 08-12-2024 End: 08-12-2024 Refill Agnes Del Rosario MD Work Phone: [facility] [place] Comment on above: Refill Request Start: 08-07-2024 End: 08-07-2024 ambulatory Morelia Munguia MA [facility] [place] Start: 08-07-2024 End: 08-07-2024 Patient encounter procedure Morelia Munguia MA [facility] [place] Comment on above: Population Health Na vigation Outreach ([place]/Workbench/ACO ) Start: 07-26-2024 End: 07-26-2024 Refill Agnes Del Rosario MD Work Phone: [facility] [place] Comment on above: Refill Request Start: 07-23-2024 End: 07-23-2024 Patient encounter procedure Alex Sher DO -[facility] Work Phone: Start: 07-23-2024 End: 07-23-2024 ambulatory Alex Sher Facility:[facility] Start: 07-04-2024 ambulatory Alex Sher Facility :[facility] Start: 07-04-2024 End: 07-04-2024 Admission to same day surgery center Alex Friend DO -Endoscopy Work Phone: Start: 07-04-2024 End: 07-04-[address] Salvador Del Rosario MD Work Phone: [facility] Work Phone: Start: 07-04-2024 Non-patient / Non-visit Alex Calix nd DO -[facility] Start: 06-24-2024 End: 06-28-2024 Telephone encounter Victor Manuel Burrows DO Work Phone: Pulmonology [facility] Comment on above: Appointment Start: 05-21-2024 End: 05-22-2024 Refill Agnes Del Rosario MD Work Phone: [facility] [place] Comment on above: Refill Request Start: 04-16-2024 End: 04-16-2024 Patient encounter procedure Alex Sher DO -[facility] Work Phone: Start: 04-16-2024 End: 04-16-2024 ambulatory Alex Sher Facility:[facility] Start: 04-12-2024 End: 04-13-2024 Refill Agnes Del Rosario MD Work Phone: [facility] [place] Comment on above: Refill Request Start: 04-08-2024 End: 04-08-2024 Patient Outreach Mitchel Walters RN Work Phone: [employer] [facility] [employer] [facility] Comment on above: Weekly phone contact (Recurring) for Transitional Care Management Start: 04-01-2024 End: 04-01-2024 Patient encounter procedure Marilia Orozco APRN.[employer] Work Phone: [facility] [place] Comment on above: Hospital discharge f ollow-up (Primary Dx); Calculus 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 Start: 03-29-2024 End: 03-29-2024 Patient Outreach Mitchel Walters RN Work Phone: [employer] Comment on above: Transition Of Care ( TCM / OON [place] Comm dc 03/28/24) Initial phone contact for Transitional Care Management Start: 03-28-2024 Non-patient / Non-visit Dr. Altagracia Lo MD -[place] [facility] Work Phone: Start: 03-28-2024 Non-patient / Non-visit Dr. Deena Avalos MD -[facility] Start: 03-27-2024 ambulatory Alex Sher Facility :[facility] Start: 03-27-2024 Non-patient / Non-visit Dr. Altagracia Lo MD -[place] [facility] Work Phone: Start: 03-26-2024 Non-patient / Non-visit Alex Yogi yamileth DO -[facility] Start: 03-26-2024 ambulatory Andrea Serrano [facility] ility:[facility] Start: 03-26-2024 End: 03-28-2024 Evaluation and management of inpatient Dr. Altagracia Lo MD -Pro[facility] Unit Work Phone: Start: 03-18-2024 End: 03-18-2024 Refill Agnes Del Rosario MD Work Phone: [facility] Comment on above: Refill Request Start: 02-23-2024 End: 02-23-2024 ambulatory AGNES DEL ROSARIO Facility:[facility] Start: 02-23-2024 End: 02-23-2024 Subsequent hospital visit by physician Xr [facility] [place] Work Phone: Radiology Start: 02-21-2024 End: 02-21-2024 Refill Victor Manuel Burrows DO Work Phone: Pulmonology [facility] Comment on above: Refill Request Start: 02-14-2024 End: 02-14-2024 Patient encounter procedure Marilia Orozco APRN.[employer] Work Phone: [facility] Comment on above: Upper back pain (Jory flaquito Dx); Immunization due; Right leg swelling Start: 02-14-2024 End: 02-14-2024 ambulatory AGNES DEL ROSARIO Facility:[facility] Start: 02-08-2024 End: 02-08-2024 Telephone encounter Marilia Orozco APRN.CNP Work Phone: [facility] [place] Comment on above: Hillary cellulitis Start: 01-29-2024 End: 01-29-2024 Patient encounter procedure Marilia Orozco APRN.CNP Work Phone: [facility] [place] Comment on above: Cellulitis of right leg (Primary Dx); Tear of medial meniscus of right knee, current, unspecified tear type, initial encounter; Right leg swelling Start: 01-29-2024 End: 01-29-2024 ambulatory AGNES DEL ROSARIO Facility:[facility] Start: 01-26-2024 End: 01-26-2024 Emergency department patient visit Leo Hansen Facility:[facility] Start: 01-26-2024 End: 01-26-2024 ambulatory AGNES DEL ROSARIO Facility:[facility] Start: 01-26-2024 End: 01-26-2024 Subsequent hospital visit by physician [facility] (I-Stat/3t) [facility] Comment on above: Acute pain of right knee [M25.561] Start: 01-24-2024 End: 01-24-2024 Patient encounter procedure Marilia Orozco APRN.[employer] Work Phone: [facility] [place] Comment on above: Pain and swelling of right lower leg (Primary Dx); Acute pain of right knee Start: 01-24-2024 End: 01-24-2024 ambulatory AGNES DEL ROSARIO Facility:[facility] Start: 01-22-2024 End: 01-22-2024 Telephone encounter Agnes Del Rosario MD Work Phone: [facility] [place] Comment on above: Results Start: 01-22-2024 End: 01-22-2024 Patient encounter procedure Agnes Del Rosario MD Work Phone: [facility] [place] Comment on above: Pain and swelling of right lower leg (Primary Dx); Cellulitis of skin Start: 01-22-2024 End: 01-22-2024 ambulatory AGNES DEL ROSARIO Facility:[facility] Start: 01-19-2024 ambulatory AGNES DEL ROSARIO F acility:[facility] Start: 01-19-2024 End: 01-19-2024 Subsequent hospital visit by physician [facility] Work Phone: Radiology Comment on above: Pain and swelling of right lower leg [M79.661, M79.89] Start: 01-19-2024 End: 01-19-2024 Patient encounter procedure Marilia Orozco APRN.[employer] Work Phone: [facility] [place] Comment on above: Pain and swelling of right lower leg (Primary Dx) Start: 01-19-2024 End: 01-19-2024 ambulatory AGNES DEL ROSARIO Facility:[facility] Start: 01-18-2024 End: 01-18-2024 ambulatory AGNES DEL ROSARIO Facility:[facility] Start: 01-18-2024 End: 01-18-2024 Subsequent hospital visit by physician Radha [facility] [place] Work Phone: Radiology Comment on above: Acute pain of right knee [M25.561] Start: 01-18-2024 End: 01-18-2024 Patient encounter procedure Joleen Munoz APRN.[employer] Work Phone: [facility] Comment on above: Pain (Primary Dx) Start: 01-18-2024 End: 01-18-2024 Office outpatient visit 25 minutes Victor Manuel Burrows DO Work Phone: Pulmonology Comment on above: Acute pain of right knee (Primary Dx); History of pulmonary embolism; BMI 38.0-38.9,adult; History of venous thromboembolism; Stage 3a chronic kidney disease (HCC); MARTIN (obstructive sleep apnea) Start: 01-18-2024 End: 01-18-2024 ambulatory VICTOR MANUEL BURROWS Facility:[facility] Start: 01-17-2024 End: 01-17-2024 ambulatory Yoegsh Forman PT Work Phone: [facility] Comment on above: Unsteady gait (Prima ry Dx) Start: 01-16-2024 End: 01-16-2024 ambulatory AGNES DEL ROSARIO Facility:[facility] Start: 01-16-2024 End: 01-16-2024 Patient encounter procedure Echocardiogram Peña Work Phone: Cardiology Comment on above: Other secondary pulm onary hypertension (HCC); History of pulmonary embolism Start: 01-15-2024 End: 01-15-2024 Office outpatient visit 15 minutes Bruna Chowdary APRN-[employer] Work Phone: [facility] Comment on above: Xerosis cutis (Prima ry Dx); Xerosis cutis; Multiple benign nevi; Lentigo; Seborrheic keratosis Start: 01-10-2024 End: 01-19-2024 Telephone encounter Agnes Del Rosario MD Work Phone: [facility] Comment on above: Disc Request Start: 01-10-2024 End: 01-10-2024 ambulatory Yogesh Golias PT Work Phone: [facility] Comment on above: Unsteady gait (Prima ry Dx) Start: 01-08-2024 End: 01-08-2024 ambulatory Tabby Gibbs AGRICULTURAL EDUCATION INSTRUCTOR Work Phone: [facility] Comment on above: Unsteady gait (Prima ry Dx) Start: 01-06-2024 End: 01-08-2024 Refill Agnes Del Rosario MD Work Phone: [facility] Comment on above: Refill Request Start: 01-04-2024 End: 01-04-2024 ambulatory Yogesh Golias PT Work Phone: [facility] Comment on above: Unsteady gait (Prima ry Dx) Start: 12-19-2023 End: 12-19-2023 Patient encounter procedure Xuan Pepe MD Work Phone: Vascular Medicine Comment on above: History of venous th romboembolism (Primary Dx); Current use of usp 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; BMI 38.0-38.9,adult; Other secondary pulmonary hypertension (HCC); Lower extremity edema; Stage 3a chronic kidney disease (HCC) Start: 12-18-2023 End: 12-18-2023 ambulatory Yogesh Dkgrace PT Work Phone: [place] [facility] Comment on above: Unsteady gait [...] Start: 11-09-2023 End: 11-09-2023 ambulatory PRADHAB KIRUPAHARAN Facility:[facility] Start: 11-06-2023 ambulatory Leonila Pino RN Work Phone: [employer] [employer] [facility] Start: 11-06-2023 Telephone encounter Salvador Del Rosario MD Work Phone: [facility] [place] Comment on above: Forms (FMLA paperwor k for patient's spouse) Start: 11-06-2023 Telephone follow-up Leonila holguin RN Work Phone: [facility] Comment on above: Transition Of Care [...] 10-30-2023 ambulatory Leonila Pino RN Work Phone: [facility] Start: 10-30-2023 End: 10-30-2023 Patient encounter procedure Agnes Del Rosario MD Work Phone: [facility] Comment on above: Acute saddle pulmona ry [...] encounter Salvador Del Rosario MD Work Phone: [facility] Comment on above: Patient Update Start: 10-23-2023 Evaluation and management of inpatient [facility] Facility:[facility] Start: 10-09-2023 End: 10-09-2023 Patient encounter procedure Sherrell Rouse VMWARE ENGINEER.[employer] Work Phone: [facility] Comment on above: Rash (Primary Dx) Start: 09-27-2023 Refill Agnes Del Rosario MD Work Phone: [facility] Comment on above: Refill Request Start: 09-04-2023 Refill Agnes Del Rosario MD Work Phone: [facility] Comment on above: Refill Request Start: 08-01-2023 End: 08-01-2023 Patient encounter procedure Marilia Orozco VMWARE ENGINEER.[employer] Work Phone: [facility] Comment on above: Essential hypertensi on, benign (Primary Dx); Prediabetes Start: 07-07-2023 Telephone encounter Salvador Del Rosario MD Work Phone: [facility] Comment on above: Medication Request Start: 07-01-2023 End: 07-01-[address] [facility] Work Phone: Start: 07-01-2023 End: 07-01-2023 Patient encounter procedure [facility] Work Phone: Start: 06-22-2023 Telephone encounter Salvador Del Rosario MD Work Phone: [facility] Comment on above: Orders Start: 06-16-2023 End: 06-16-2023 Patient encounter procedure Marilia Orozco APRN.[employer] Work Phone: [facility] Comment on above: Essential hypertensi on, benign (Primary Dx) Start: 05-15-2023 End: 05-15-2023 Subsequent hospital visit by physician Xr [facility] Work Phone: Radiology Comment on above: 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, M54.41, G89.29] Start: 03-20-2023 Refill Amanda rodriges APRN.[employer] Work Phone: [facility] Comment on above: Refill Request Start: 03-13-2023 ambulatory Anusha Trevino [facility] [place] Comment on above: Population Health Na vigation Outreach ([facility]) Start: 03-07-2023 Refill Agnes Del Rosario MD Work Phone: [facility] Comment on above: Refill Request Start: 02-07-2023 [...] 12-29-2022 ambulatory Yogesh Forman PT Work Phone: [facility] Comment on above: 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) Start: 12-27-2022 End: 12-27-2022 ambulatory Yogesh Golias PT Work Phone: [facility] Comment on above: 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) Start: 12-22-2022 End: 12-22-2022 ambulatory Yogesh Golias PT Work Phone: [facility] Comment on above: 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) Start: 12-16-2022 End: 12-16-2022 ambulatory Yogesh Golias PT Work Phone: [facility] Comment on above: 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) Start: 12-08-2022 End: 12-08-2022 Celsa Del Rosario MD Work Phone: [facility] Comment on above: 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) Start: 12-06-2022 End: 12-06-2022 ambulatory Yogesh Golias PT Work Phone: [facility] Comment on above: 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) Start: 12-01-2022 End: 12-01-2022 ambulatory Yogesh Golias PT Work Phone: [facility] Comment on above: 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) Start: 11-29-2022 End: 11-29-2022 ambulatory Sherrell O'Himanshu PT [facility] Comment on above: 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) Start: 11-09-2022 Telephone encounter Marilia francis APRN.CNP Work Phone: [facility] Comment on above: Results Start: 11-07-2022 End: 11-07-2022 Patient encounter procedure Echocardiogram Wstr Work Phone: Cardiology Comment on above: Essential hypertensi on, benign; Stage 3b chronic kidney disease (HCC); Bilateral leg edema; ASHD (arteriosclerotic heart disease) Start: 11-03-2022 Telephone encounter Salvador Del Rosario MD Work Phone: [facility] Comment on above: Results Start: 11-02-2022 End: 11-02-2022 Patient encounter procedure Marilia Orozco [employer] Work Phone: [facility] [place] Comment on above: Essential hypertensi on, benign (Primary Dx); Hyperlipidemia LDL goal <100; Prediabetes; Acquired hypothyroidism; Stage 3b chronic kidney disease (HCC); Chronic bilateral low back pain with bilateral sciatica; Obesity, Class III, 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); Venous insufficiency (chronic) (peripheral); Bilateral leg edema; MARTIN (obstructive sleep apnea); ASHD (arteriosclerotic heart disease) Start: 06-10-2022 Telephone encounter Scott Pal MD Work Phone: [facility] [place] Comment on above: Medication Request Start: 05-23-2022 End: 05-23-2022 Patient encounter procedure Cole Campos MD Work Phone: [facility] Comment on above: URI, acute (Primary Dx) Start: 05-11-2022 Refill Agnes Del oRsario MD Work Phone: [facility] Comment on above: Refill Request; Refi ll Request Start: 04-13-2022 End: 04-13-2022 Patient encounter procedure Agnes Del Rosario MD Work Phone: [facility] Comment on above: Medicare annual well ness visit, subsequent (Primary Dx); Essential hypertension, benign; Stage 3b chronic kidney disease (HCC); Obesity, Class III, 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); Acquired hypothyroidism; Advance directive discussed with patient; MARTIN (obstructive sleep apnea) Start: 04-11-2022 ambulatory Anusha Trevino [facility] [place] Comment on above: Population Health Na vigation Outreach ([facility] [place] [facility]) Start: 02-11-2022 End: 02-11-2022 Patient encounter procedure Bruno Marquez MD Work Phone: Neurology Comment on above: MARTIN on CPAP (Primary Dx) Start: 02-03-2022 End: 02-03-2022 ambulatory Yogesh Golias PT Work Phone: [facility] Comment on above: 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); Personal history of fall; Age-related physical debility Start: 01-31-2022 End: 01-31-2022 ambulatory TAKO Work Phone: [facility] Comment on above: 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); Personal history of fall; Age-related physical debility Start: 01-24-2022 End: 01-24-2022 ambulatory Yogesh [employer] PT Work Phone: [facility] Comment on above: 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); Personal history of fall; Age-related physical debility Start: 01-20-2022 End: 01-20-2022 ambulatory [employer] AGRICULTURAL EDUCATION INSTRUCTOR Work Phone: [facility] Comment on above: 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); Personal history of fall; Age-related physical debility Start: 01-17-2022 End: 01-17-2022 ambulatory [employer] AGRICULTURAL EDUCATION INSTRUCTOR Work Phone: [facility] Comment on above: 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); Personal history of fall; Age-related physical debility Start: 01-12-2022 End: 01-12-2022 ambulatory Yogesh Golias PT Work Phone: [facility] Comment on above: 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); Personal history of fall; Age-related physical debility Start: 01-10-2022 End: 01-10-2022 ambulatory Yogesh Golias PT Work Phone: [facility] Comment on above: 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); Personal history of fall; Age-related physical debility Start: 01-04-2022 End: 01-04-2022 ambulatory Tabby Gibbs AGRICULTURAL EDUCATION INSTRUCTOR Work Phone: [facility] Comment on above: 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); Personal history of fall; Age-related physical debility Start: 12-31-2021 Office outpatient vi sit 15 minutes Bruna Chowdary Dept. of Dermatology Start: 12-29-2021 End: 12-29-2021 ambulatory Xiao Humphrey AGRICULTURAL EDUCATION INSTRUCTOR Work Phone: [facility] Comment on above: 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); Personal history of fall; Age-related physical debility Start: 12-27-2021 End: 12-27-2021 ambulatory Xiao Humphrey AGRICULTURAL EDUCATION INSTRUCTOR Work Phone: [facility] Comment on above: 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); Personal history of fall; Age-related physical debility Start: 12-20-2021 End: 12-20-2021 ambulatory Yogesh Golias PT Work Phone: [facility] Comment on above: 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); Personal history of fall; Age-related physical debility Start: 12-17-2021 Refill Agnes Del Rosario MD Work Phone: [facility] Comment on above: Refill Request Start: 12-08-2021 End: 12-08-2021 ambulatory Yogesh Golias PT Work Phone: [facility] Comment on above: Chronic bilateral lo w back pain with bilateral sciatica; At high risk for falls; Age-related physical debility; Personal history of fall Start: 12-02-2021 Telephone encounter Salvador Del Rosario MD Work Phone: [facility] Comment on above: Results Start: 11-11-2021 End: 11-11-2021 Patient encounter procedure Tri Hylton PA-C Work Phone: [facility] Comment on above: Acute otitis externa of right ear, unspecified type (Primary Dx) Start: 10-19-2021 End: 10-19-2021 Nursing evaluation of patient and report [place] Nurse Work Phone: [facility] Comment on above: Need for vaccination (Primary Dx) Start: 10-19-2021 Telephone encounter Salvador Del Rosario MD Work Phone: [facility] Comment on above: Orders Start: 10-05-2021 Refill Agnes Del Rosario MD Work Phone: [facility] Comment on above: Patient Question; Re fill Request Start: 07-14-2021 Telephone encounter Marilia francis APRN.CNP Work Phone: [facility] Comment on above: Orders Start: 01-01-2021 Office outpatient vi sit 15 minutes Bruna Bort Dept. of Dermatology Start: 01-03-2020 Office outpatient vi sit 15 minutes Bruna Bort Dept. of Dermatology Start: 05-13-2019 Preprocedural examination done Agnes Del Rosario MD Work Phone: [facility] Work Phone: Start: 01-04-2019 Office outpatient vi [...] 01-30-2025 SKIN / NAIL BIOPSY Bruna Chowdary VMWARE ENGINEER-[employer] Work Phone: Start: 12-26-2024 Endoscopic retrograde cholangiopancreatography [...] Radex hand minimum 3 views Marilia mueller VMWARE ENGINEER.[employer] Work Phone: Start: 10-07-2024 End: 10-07-2024 Endoscopic [...] VACCINE AGE 12+ YR (COMIRNATY) Marilia Podlogar VMWARE ENGINEER.[employer] Work Phone: Start: 01-26-2024 Mri any jt lower extrem w/o contrast matrl Marilia Podlogar VMWARE ENGINEER.[employer] Work Phone: Start: 01-19-2024 Dup-scan xtr veins unilateral/limited study Marilia Podlogar VMWARE ENGINEER.[employer] Work Phone: Start: 01-16-2024 Echo tthrc r-t 2d w/wom-mode compl spec&colr d Avril Ankit DO Work Phone: Start: 11-22-2023 Pulmonary ventilation & perfusion imaging Avril Ankit DO Work Phone: Start: 10-23-2023 Thyrotropin [Units/volume] in Serum or Plasma Bruna Chowdary VMWARE ENGINEER-[employer] Work Phone: Start: 07-01-2023 MRI of lumbar spine Start: 05-15-2023 Radex spine lumbosacral 2/3 views Marilia Podlognarciso VMWARE ENGINEER.[employer] Work Phone: Start: 01-05-2023 Tangential biopsy skin single lesion Bruna Chowdary Start: 11-07-2022 Echo tthrc r-t 2d w/wom-mode compl spec&colr d Marilia Pylelogar VMWARE ENGINEER.[employer] Work Phone: Start: 11-07-2022 LVEF TRANSTHORACIC ECHO Marilia Podlognarciso VMWARE ENGINEER.[employer] Work Phone: Start: 12-01-2021 Adult depression screening [...] DTaP/Tdap/Td Vaccines (3 - Td or Tdap) [facility] Start: 07-31-2029 Urine microalbumin profile [facility] Start: 08-16-2027 Diabetes Screening Diabetes Screening [facility] Start: 10-26-2026 Diabetes Screening Diabetes Screening [facility] Start: 10-25-2026 Diabetes Screening Diabetes Screening [facility] Start: 07-31-2026 Diabetes Screening Diabetes Screening [facility] Start: 05-15-2026 Diabetes Screening Diabetes Screening [facility] Start: 11-03-2025 End: 11-03-2025 Patient encounter procedure 11/03/2025 10:40 AM EDT Office Visit Neurology [address] [place] [address] Bruno Marquez Jr., MD [address] [place] [address] 1 year cpap appt Neurology Comment on above: 1 year cpap appt Start: 11-02-2025 DIABETES SCREEN DIABETES SCREEN [facility] Start: 11-02-2025 Diabetes Screening Diabetes Screening [facility] Start: 10-28-2025 Annual PCP Team Chronic Disease Visit Annual PCP Team Chronic Disease Visit [facility] Start: 10-08-2025 Annual PCP Team Chronic Disease Visit Annual PCP Team Chronic Disease Visit [facility] Start: 10-08-2025 BP Controlled (<130/80) BP Controlled (<130/80) [facility] Start: 08-15-2025 Creatinine measurement Serum Creatinine [facility] Start: 08-15-2025 Diabetes mellitus screening Diabetes Screening [facility] Start: 08-15-2025 Hemoglobin A1c measurement Diabetes: Hemoglobin A1C [facility] Start: 08-15-2025 Hepatitis B surface antibody level LDL Cholesterol [facility] Start: 08-13-2025 Annual PCP Team Chronic Disease Visit Annual PCP Team Chronic Disease Visit [facility] Start: 04-13-2025 DIABETES SCREEN DIABETES SCREEN [facility] Start: 04-01-2025 Annual PCP Team Chronic Disease Visit Annual PCP Team Chronic Disease Visit [facility] Start: 02-13-2025 Annual PCP Team Chronic Disease Visit Annual PCP Team Chronic Disease Visit [facility] Start: 02-12-2025 End: 02-12-2025 Patient encounter procedure 02/12/2025 3:00 PM EDT Office Visit Family [facility] [address] [place], [place] [address] Marilia Orozco APRN.[employer] [address] [place] [address] 6 month follow up [facility] [place] Comment on above: 6 month follow up Start: 01-28-2025 Annual PCP Team Chronic Disease Visit Annual PCP Team Chronic Disease Visit [facility] Start: 01-24-2025 End: 01-24-2025 Patient encounter procedure 01/24/2025 11:00 AM EDT Office Visit [facility] [address] [place] [address] [address] [place] [id number] Bruna Chowdary APRN-[employer]ITE [address] [place] [address] [address] [place] [address] [facility] Start: 01-23-2025 Annual PCP Team Chronic Disease Visit Annual PCP Team Chronic Disease Visit [facility] Start: 01-21-2025 Annual PCP Team Chronic Disease Visit Annual PCP Team Chronic Disease Visit [facility] Start: 01-21-2025 BP Controlled (<130/80) BP Controlled (<130/80) [facility] Start: 01-18-2025 Annual PCP Team Chronic Disease Visit Annual PCP Team Chronic Disease Visit [facility] Start: 01-18-2025 Complete blood count Hemoglobin/Hematocrit [facility] Start: 01-17-2025 BP Controlled (<130/80) BP Controlled (<130/80) [facility] Start: 12-30-2024 COVID-19 Vaccine ( season) COVID-19 Vaccine ( season) [facility] Start: 12-30-2024 Influenza vaccination Influenza Vaccine (#1) [facility] Start: 12-26-2024 Endoscopic retrograde cholangiopancreatography ERCP Biliary/Pancreas [facility] Start: 12-26-2024 Fluoroscopic guidance O.R. Fluoro for C-Arm [facility] Start: 12-26-2024 Patient discharge [facility] Start: 12-01-2024 DIABETES SCREEN DIABETES SCREEN [facility] Start: 10-31-2024 End: 10-31-2024 Patient encounter procedure 10/31/2024 11:00 AM EDT Office Visit Neurology [address] [place] [address] Ghazala Kumar APRN.[employer] [address] [place] [address] annual renewal for CPAP machine Neurology Comment on above: annual renewal for CPAP machine Start: 10-29-2024 Annual PCP Team Chronic Disease Visit Annual PCP Team Chronic Disease Visit [facility] Start: 10-28-2024 End: 10-28-2024 Patient encounter procedure 10/28/2024 1:20 PM EDT Office Visit [facility] [place] [address] [place] [address] Marilia Orozco APRN.[employer] [address] [place] [address] discharged from [facility] Comment on above: discharged from [facility] Start: 10-26-2024 Creatinine measurement Serum Creatinine [facility] Start: 10-25-2024 Complete blood count Hemoglobin/Hematocrit [facility] Start: 10-25-2024 Creatinine measurement Serum Creatinine [facility] Start: 10-24-2024 Patient discharge [facility] Start: 10-23-2024 Following clinical pathway protocol [facility] Start: 10-22-2024 Bacteria identified in Blood by Culture Blood Culture [facility] Start: 10-22-2024 Blood culture Blood Culture [facility] Start: 10-22-2024 Diabetes mellitus screening Diabetes Screening [facility] Start: 10-22-2024 Hemoglobin A1c measurement Diabetes: Hemoglobin A1C [facility] Start: 10-22-2024 Thyroid stimulating hormone measurement TSH Level [facility] Start: 10-22-2024 Care planning and problem solving actions [facility] Start: 10-22-2024 End: 10-22-2024 ambulatory Pulmonology [facility] Comment on above: 9 MONTH F/U Start: 10-22-2024 Application of intermittent pneumatic compression device [facility] Start: 10-22-2024 Following clinical pathway protocol [facility] Start: 10-22-2024 Assessment of risk of venous thromboembolism [facility] Start: 10-22-2024 Documentation procedure [facility] Start: 10-22-2024 Insertion of catheter into peripheral vein [facility] Start: 10-22-2024 Measuring intake and output [facility] Start: 10-22-2024 Providing care according to standard [facility] Start: 10-22-2024 Provision of activity privileges [facility] Start: 10-22-2024 Referral to gastroenterology service [facility] Start: 10-22-2024 Referral to service [facility] Start: 10-22-[address] [facility] Start: 10-22-2024 Hospital admission, emergency, from emergency room, medical nature [facility] Start: 10-22-2024 Magnetic resonance cholangiopancreatography MRCP Abdomen without Contrast [facility] Start: 10-22-2024 Verification routine [facility] Start: 10-22-2024 Admission procedure [facility] Start: 10-22-[address] [facility] Start: 10-22-2024 End: 10-22-[address] [facility] Start: 10-21-2024 End: 10-22-[address] [facility] Start: 10-21-2024 End: 10-21-2024 ambulatory 10/21/2024 1:00 PM EDT [facility] [address] [place] [address] [place] [address] [place] [address] 9 MONTH F/U Pulmonary Medicine Comment on above: 9 MONTH F/U Start: 10-07-2024 Egd flex removal lesion(s) by hot biopsy forceps EGD CAUTERY TUMOR POLYP [facility] Start: 10-07-2024 Ercp stent placement biliary/pancreatic duct ERCP DUCT STENT PLACEMENT [facility] Start: 10-07-2024 Endoscopic retrograde cholangiopancreatography ERCP Biliary/Pancreas [facility] Start: 10-07-2024 RF Guidance for endoscopy of Biliary ducts and Pancreatic duct-- W contrast retrograde [facility] Start: 10-07-2024 Patient discharge [facility] Start: 09-27-2024 End: 12-27-2024 Thyrotropin [Units/volume] in Serum or Plasma THYROID STIMULATING HORMONE Lab Routine Acquired hypothyroidism Expected: 09/27/2024, Expires: 12/27/2024 [facility] Work Phone: Comment on above: Expected: 09/27/2024, Expires: Start: 09-27-2024 End: 09-27-2024 ambulatory 09/27/2024 9:00 AM EDT Results Only [facility] [address] [place] [address] [facility] Start: 09-25-2024 End: 09-25-2024 ambulatory 09/25/2024 8:30 AM EDT [facility] [address] [place] [address] Victor Manuel Burrows, [address] [place] [address] 9 MONTH F/U R/S from 10-21 Pulmonology Comment on above: 9 MONTH F/U R/S from 10-21 Start: 09-17-2024 X-ray of lumbosacral spine L/S Spine Min [address] [facility] Start: 09-17-2024 XR Spine Lumbar and Sacrum GE [address] [facility] Start: 08-31-[address] [facility] Start: 08-14-2024 Covid-19 Vaccine () Covid-19 Vaccine () [facility] Start: 08-13-2024 End: 11-12-2024 Comprehensive metabolic 2000 panel - Serum or Plasma COMPREHENSIVE METABOLIC PANEL Lab Routine Essential hypertension, benign Hyperlipidemia LDL goal <100 Stage 3b chronic kidney disease (HCC) Expected: 08/13/2024, Expires: 11/12/2024 [facility] Comment on above: Expected: 08/13/2024, Expires: Start: 08-13-2024 End: 11-12-2024 Hemoglobin A1c in Blood HEMOGLOBIN A1C Lab Routine Prediabetes Expected: 08/13/2024, Expires: 11/12/2024 [facility] Comment on above: Expected: 08/13/2024, Expires: Start: 08-13-2024 End: 11-12-2024 Lipid 1996 panel - Serum or Plasma LIPID PANEL, FASTING Lab Routine Hyperlipidemia LDL goal <100 Expected: 08/13/2024, Expires: 11/12/2024 [facility] Work Phone: Comment on above: Expected: 08/13/2024, Expires: Start: 08-13-2024 End: 11-12-2024 Thyrotropin [Units/volume] in Serum or Plasma THYROID STIMULATING HORMONE Lab Routine Acquired hypothyroidism Expected: 08/13/2024, Expires: 11/12/2024 [facility] Comment on above: Expected: 08/13/2024, Expires: Start: 08-13-2024 End: 08-13-2024 Patient encounter procedure 08/13/2024 11:40 AM EDT Office Visit [place] [address] [facility] [place] [address] Marilia Orozco APRN.[employer] [address] [place] [address] annual wellness [facility] [place] Comment on above: annual wellness Start: 08-02-2024 End: 08-02-2024 Patient encounter procedure 08/02/2024 12:20 PM EDT Office Visit [facility] [place] [address] [place] [address] Agnes Del Rosario MD [address] [place], [place] [address] Medicare wellness [facility] [place] Comment on above: Medicare wellness Start: 07-31-2024 Annual PCP Team Chronic Disease Visit Annual PCP Team Chronic Disease Visit [facility] Start: 07-12-2024 DIABETES SCREEN DIABETES SCREEN [facility] Start: 07-04-2024 Egd transoral biopsy single/multiple EGD BIOPSY SINGLE/MULTIPLE [facility] Start: 07-04-2024 Ercp remove calculi/debris biliary/pancreas duct ERCP REMOVE DUCT CALCULI [facility] Start: 07-04-2024 Ercp remove foreign body/stent biliary/panc duct ERCP REMOVE FORGN BODY DUCT [facility] Start: 07-04-2024 Ercp w/sphincterotomy/papillotomy ENDO CHOLANGIOPANCREATOGRAPH [facility] Start: 07-04-2024 Patient discharge [facility] Start: 07-02-2024 End: 07-02-2024 Patient encounter procedure 07/02/2024 12:30 PM EST Office Visit Vascular Medicine [address] [place] [address] Xuan Gómez MD [address] [place], [place] [id number] Return in about 6 months (around 06/20/2024). Vascular Medicine Comment on above: Return in about 6 months (around 06/20/19). Start: 06-16-2024 Annual PCP Team Chronic Disease Visit Annual PCP Team Chronic Disease Visit [facility] Start: 05-15-2024 Creatinine measurement Serum Creatinine [facility] Start: 05-01-2024 Advance Directive Discussion Advance Directive Discussion [facility] Start: 04-01-2024 End: 04-01-2024 Patient encounter procedure 04/01/2024 12:00 PM EST Office Visit [facility] [place] [address] [place], [place] [id number] Marilia Oroczo APRN.[employer] [address] [place] [address] [facility] follow up 03/26-03/28 [facility] [place] Comment on above: [facility] follow up 03/26-03/28 Start: 03-28-2024 Patient discharge [facility] Start: 03-27-2024 Application of intermittent pneumatic compression device [facility] Start: 03-27-2024 Referral to general surgeon [facility] Start: 03-26-2024 Ambulation without limitation [facility] Start: 03-26-2024 Assessment of risk of venous thromboembolism [facility] Start: 03-26-2024 Incentive [address]irometry [facility] Start: 03-26-2024 Insertion of catheter into peripheral vein [facility] Start: 03-26-2024 Oxygen therapy [facility] Start: 03-26-2024 Providing care according to standard [facility] Start: 03-26-[address] [facility] Start: 03-26-2024 Referral to gastroenterology service [facility] Start: 03-26-2024 Following clinical pathway protocol [facility] Start: 03-26-2024 Admission procedure 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 Requesting flu & covid vaccine [facility] Comment on above: Hillary leg cellulitis. Requesting flu & co vid vaccine Start: 02-09-2024 End: 02-09-2024 ambulatory 02/09/2024 2:00 PM EDT OT/PT/Speech Visit [facility] [address] [place] [address] Yogesh Forman, PT [address] [place] [address] R26.81 (ICD-10-CM) - Unsteady gait when walking [facility] Comment on above: R26.81 (ICD-10-CM) - Unsteady gait when walking Start: 02-02-2024 End: 02-02-2024 ambulatory 02/02/2024 1:15 PM EDT OT/PT/Speech Visit [facility] [address] [place] [address] Tabby Gibbs, AGRICULTURAL EDUCATION INSTRUCTOR [address] [place] [address] R26.81 (ICD-10-CM) - Unsteady gait when walking [facility] Comment on above: R26.81 (ICD-10-CM) - Unsteady gait when walking Start: 02-01-2024 End: 05-02-2024 Potassium [Moles/volume] in Serum or Plasma POTASSIUM Lab Routine Cellulitis of right leg Expected: 02/01/2024, Expires: 05/02/2024 [facility] Work Phone: Comment on above: Expected: 02/01/2024, Expires: Start: 01-29-2024 End: 01-29-2024 Patient encounter procedure 01/29/2024 11:20 AM EDT Office Visit [place] [address] [place] [address] Marilia Orozco APRN.[employer] [address] [place] [address] follow up [facility] [place] Comment on above: follow up Start: 01-29-2024 End: 01-29-2024 ambulatory 01/29/2024 10:30 AM EDT OT/PT/Speech Visit [facility] [address] [place] [address] Yogesh Forman, PT [address] [place] [address] R26.81 (ICD-10-CM) - Unsteady gait when walking [facility] Comment on above: R26.81 (ICD-10-CM) - Unsteady gait when walking Start: 01-25-2024 End: 01-25-2024 ambulatory 01/25/2024 10:45 AM EDT OT/PT/Speech Visit [facility] [address] [place] [address] Yogesh Forman, PT [address] [place] [address] R26.81 (ICD-10-CM) - Unsteady gait when walking [facility] Comment on above: R26.81 (ICD-10-CM) - Unsteady gait when walking Start: 01-24-2024 End: 01-24-2024 Patient encounter procedure 01/24/2024 12:40 PM EDT Office Visit [place] [address] [place] [address] Marilia Orozco APRN.[employer] [address] [place] [address] follow up cellulitis [facility] [place] Comment on above: follow up cellulitis Start: 01-22-2024 End: 01-22-2024 ambulatory 01/22/2024 3:00 PM EDT [facility] [address] [place] [address] Yogesh Forman, PT [address] [place] [address] R26.81 (ICD-10-CM) - Unsteady gait when walking [facility] Comment on above: R26.81 (ICD-10-CM) - Unsteady gait when walking Start: 01-22-2024 End: 01-22-2024 Patient encounter procedure 01/22/2024 11:20 AM EDT Office Visit [facility] [place] [address] [place], [place] [id number] Agnes Del Rosario MD [address] [place], [place] [address] Derm follow up [facility] [place] Comment on above: Derm follow up Start: 01-19-2024 End: 01-19-2024 Patient encounter procedure 01/19/2024 6:30 PM EDT Appointment Radiology [address] [place] [address] Pain and swelling of right lower leg [M79.661, M79.89] Radiology Comment on above: Pain and swelling of right lower leg [M7 9.661, M79.89] Start: 01-18-2024 End: 01-18-2024 Patient encounter procedure 01/18/2024 9:00 AM EDT Office Visit Pulmonology [address] [place] [address] [place] [address] [place] [address] 2 month f/u Pulmonology Comment on above: 2 month f/u Start: 01-17-2024 End: 01-17-2024 ambulatory 01/17/2024 3:15 PM EDT OT/PT/Speech Visit [facility] [address] [place] [address] Yogesh Forman, PT [address] [place] [address] R26.81 (ICD-10-CM) - Unsteady gait when walking [facility] Comment on above: R26.81 (ICD-10-CM) - Unsteady gait when walking Start: 01-16-2024 End: 01-16-2024 Patient encounter procedure 01/16/2024 1:00 PM EDT Office Visit Cardiology [address] [address] echo Cardiology Comment on above: echo Start: 01-15-2024 End: 01-15-2024 ambulatory 01/15/2024 8:45 AM EDT OT/PT/Speech Visit [facility] [address] [place] [address] Tabby Gibbs, AGRICULTURAL EDUCATION INSTRUCTOR [address] [place] [address] R26.81 (ICD-10-CM) - Unsteady gait when walking [facility] Therapy Comment on above: R26.81 (ICD-10-CM) - Unsteady gait when walking Start: 01-10-2024 End: 01-10-2024 ambulatory 01/10/2024 10:00 AM EDT OT/PT/Speech Visit [facility] [address] [place] [address] Yogesh Forman, PT [address] [place] [address] R26.81 (ICD-10-CM) - Unsteady gait when walking [facility] Comment on above: R26.81 (ICD-10-CM) - Unsteady gait when walking Start: 01-08-2024 End: 01-08-2024 ambulatory 01/08/2024 9:30 AM EDT OT/PT/Speech Visit [facility] [address] [place] [address] Tabby Gibbs, AGRICULTURAL EDUCATION INSTRUCTOR [address] [place] [address] R26.81 (ICD-10-CM) - Unsteady gait when walking [facility] Comment on above: R26.81 (ICD-10-CM) - Unsteady gait when walking Start: 01-04-2024 End: 01-04-2024 ambulatory 01/04/2024 3:45 PM EDT OT/PT/Speech Visit [facility] [address] [place] [address] Yogesh Forman, PT [address] [place] [address] R26.81 (ICD-10-CM) - Unsteady gait when walking [facility] Comment on above: R26.81 (ICD-10-CM) - Unsteady gait when walking Start: 12-31-2023 COVID-19 Vaccine ( season) COVID-19 Vaccine ( season) [facility] Start: 12-31-2023 Covid-19 Vaccine ( season) Covid-19 Vaccine ( season) [facility] Start: 12-31-2023 Covid-19 Vaccine ( season) Covid-19 Vaccine ( season) [facility] Start: 12-31-2023 Influenza vaccination Influenza Vaccine (#1) [facility] Start: 12-19-2023 End: 12-19-2023 Patient encounter procedure 12/19/2023 2:30 PM EDT Office Visit Vascular Medicine [address] [place] [id number] Xuan Gó[place] [address] [place] [id number] 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] [facility] Medicine Comment on above: Other secondary pulmonary hypertension ( HCC) [I27.29] Start: 12-18-2023 End: 12-18-2023 ambulatory 12/18/2023 8:30 AM EDT OT/PT/Speech Visit [facility] [address] [place] [address] Yogesh Forman, PT [address] [place] [address] Unsteady gait when walking [facility] Comment on above: Unsteady gait when walking Start: 12-12-2023 End: 12-12-2023 Patient encounter procedure 12/12/2023 9:40 AM EDT Office Visit Cardiology [address] [address] echo Cardiology Comment on above: echo Start: 11-22-2023 Subsequent hospital visit by physician 11/22/2023 1:25 PM EDT Hospital Encounter [facility] [address] [place] [address] 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] [facility] Comment on above: Other secondary pulmonary hypertension ( HCC) [I27.29] Start: 11-09-2023 End: 11-09-2023 Patient encounter procedure Pulmonology Comment on above: Saddle PE, severe pulmonary hypertension - sched with another provider due to sooner avail Start: 11-03-2023 ANNUAL PCP TEAM CHRONIC DISEASE VISIT ANNUAL PCP TEAM CHRONIC DISEASE VISIT [facility] Start: 11-03-2023 Complete blood count Hemoglobin/Hematocrit [facility] Start: 11-03-2023 HEMOGLOBIN/HEMATOCRIT HEMOGLOBIN/HEMATOCRIT [facility] Start: 11-03-2023 Hepatitis B surface antibody level LDL CHOLESTEROL [facility] Start: 11-03-2023 SERUM CREATININE SERUM CREATININE [facility] Start: 10-31-2023 End: 10-31-2023 Patient encounter procedure 10/31/2023 9:40 AM EDT Office Visit Family [facility] [place] [address] [place] [address] PodlogarMarilia APRN.COOKER SULFITE [address] [place] [address] 3 month follow up Family [facility] [place] Comment on above: 3 month follow up Start: 10-30-2023 End: 01-29-2024 PT panel - Platelet poor plasma by Coagulation assay PROTHROMBIN TIME Lab STAT Acute saddle pulmonary embolism, unspecified whether acute cor pulmonale present (HCC) Expected: 10/30/2023, Expires: 01/29/2024 [facility] Work Phone: Comment on above: Expected: 10/30/2023, Expires: Start: 10-30-2023 End: 10-30-2023 Patient encounter procedure 10/30/2023 1:20 PM EDT Office Visit Family [facility] [address] [place] [place] [address] Agnes Del Rosario MD [address] [place] [address] 40 min hospital follow up Family [facility] [place] Comment on above: 40 min hospital follow up Start: 09-13-2023 Covid-19 Vaccine () Covid-19 Vaccine () [facility] Start: 05-23-2023 BP CONTROLLED (<130/80) BP CONTROLLED (<130/80) [facility] Start: 05-01-2023 Advance Directive Discussion Advance Directive Discussion [facility] Start: 05-01-2023 Behavioral Health Screening Behavioral Health Screening [facility] Start: 05-01-2023 Depression Assessment Depression Assessment [facility] Start: 04-13-2023 ANNUAL PCP TEAM CHRONIC DISEASE VISIT ANNUAL PCP TEAM CHRONIC DISEASE VISIT [facility] Start: 04-13-2023 Medicare Annual Wellness Visit Medicare Annual Wellness Visit [facility] Start: 04-13-2023 SERUM CREATININE SERUM CREATININE [facility] Start: 02-11-2023 BP CONTROLLED (<130/80) BP CONTROLLED (<130/80) [facility] Start: 12-30-2022 Covid-19 Vaccine () Covid-19 Vaccine () [facility] Start: 12-30-2022 Influenza vaccination [facility] Start: 12-01-2022 Adult depression screening assessment DEPRESSION SCREENING [facility] Start: 12-01-2022 ANNUAL PCP TEAM CHRONIC DISEASE VISIT ANNUAL PCP TEAM CHRONIC DISEASE VISIT [facility] Start: 12-01-2022 SERUM CREATININE SERUM CREATININE [facility] Start: 07-12-2022 ANNUAL PCP TEAM CHRONIC DISEASE VISIT ANNUAL PCP TEAM CHRONIC DISEASE VISIT [facility] Start: 07-12-2022 BP CONTROLLED (<130/80) BP CONTROLLED (<130/80) [facility] Start: 07-12-2022 HEMOGLOBIN/HEMATOCRIT HEMOGLOBIN/HEMATOCRIT [facility] Start: 07-12-2022 Hepatitis B surface antibody level LDL CHOLESTEROL [facility] Start: 07-12-2022 SERUM CREATININE SERUM CREATININE [facility] Start: 06-19-2022 COVID-19 VACCINE (7 - Pfizer series) COVID-19 VACCINE (7 - Pfizer series) [facility] Start: 05-23-2022 End: 06-06-2022 Influenza virus A and B RNA and SARS-CoV-2 (COVID-19) N gene panel - Respiratory specimen by DANNIELLE with probe detection [facility] Work Phone: Comment on above: Expected: 05/23/2022, Expires: 3 Start: 05-01-2022 ADVANCE DIRECTIVE DISCUSSION ADVANCE DIRECTIVE DISCUSSION [facility] Start: 05-01-2022 DEPRESSION ASSESSMENT DEPRESSION ASSESSMENT [facility] Start: 12-30-2021 Influenza vaccination INFLUENZA (#1) [facility] Start: 12-14-2021 SHINGRIX VACCINE (3 of 3) SHINGRIX VACCINE (3 of 3) [facility] Start: 12-02-2021 End: 02-01-2022 Comprehensive metabolic 2000 panel - Serum or Plasma COMP METABOLIC PANEL Lab Routine Stage 3b chronic kidney disease (HCC) Expected: 12/02/2021, Expires: 02/01/2022 [facility] Work Phone: Comment on above: Expected: 12/02/2021, Expires: 2 Start: 11-17-2021 COVID-19 VACCINE (5 - Booster for Pfizer series) COVID-19 VACCINE (5 - Booster for Pfizer series) [facility] Start: 07-30-2021 Adult depression screening assessment DEPRESSION SCREENING [facility] Start: 07-30-2021 BP CONTROLLED (<130/80) BP CONTROLLED (<130/80) [facility] Start: 05-01-2021 ADVANCE DIRECTIVE DISCUSSION ADVANCE DIRECTIVE DISCUSSION [facility] Start: 05-01-2021 DEPRESSION ASSESSMENT DEPRESSION ASSESSMENT [facility] Start: 04-29-2013 SHINGRIX VACCINE (2 of 3) [facility]ACCINE (2 of 3) [facility] Start: 2004 RSV Vaccine (1 - 1-dose 60+ series) RSV Vaccine (1 - 1-dose 60+ series) [facility] Start: 1962 Anxiety Screening Anxiety Screening [facility] Start: 1962 Depression Screening Depression Screening [facility] Start: 1962 Hepatitis C screening Hepatitis C Screening [facility] Start: 1944 Creatinine measurement Creatinine Level [facility] Start: 1944 Echocardiography Echocardiogram [facility] Start: 1944 Lipid panel Lipid Panel [facility] Start: 1944 Medicare Annual Wellness Visit Medicare Annual Wellness Visit (AWV) [facility] Start: 1944 Potassium measurement Potassium Level [facility] Bilirubin measurement, urine [facility] Dermatopathology- DERM LAB [place] topathology- DERM LAB Pathology and Cytology Timed Neoplasm of uncertain behavior of skin Release Upon Ordering for 1 Occurrences starting 01/30/2025 [facility] Service Area Work Phone: Comment on above: Release Upon Ordering for 1 Occurrences starting 01/30/2025 End: 11-03-2023 Echocardiography ECHO Cardiology Routine Essential hypertension, benign Stage 3b chronic kidney disease (HCC) Bilateral leg edema ASHD (arteriosclerotic heart disease) 1 Occurrences starting 11/02/2022 until 11/03/2023 [facility] Work Phone: Comment on above: 1 Occurrences starting 11/02/2022 until 11/03/2023 End: 11-08-2024 Echocardiography ECHO Cardiology Routine Other secondary pulmonary hypertension (HCC) History of pulmonary embolism 1 Occurrences starting 11/09/2023 until 11/08/2024 [facility] Comment on above: 1 Occurrences starting 11/09/2023 until 11/08/2024 Hemoglobin [Presence ] in Urine [facility] Hemoglobin A1c/Hemoglobin.total in Blood HEMOGLOBIN A1C (POC) Lab Routine Prediabetes Ordered: 08/01/2023 [facility] Work Phone: Comment on above: Ordered: 08/01/2023 Hzv zoster vacc georgiana mbinant adjuvanted im njx ZOSTER VACC RECOMBINANT,IM Immunization/Injection Routine Need for vaccination Ordered: 10/19/2021 [facility] Work Phone: Comment on above: Ordered: 10/19/2021 Measurement of keton es in urine using dipstick [facility] Microscopic urinalysis [facility] End: 02-22-2025 MR Knee - right WO contrast MRI KNEE WO IVCON RIGHT Radiology Routine Acute pain of right knee 1 Occurrences starting 01/24/2024 until 02/22/2025 [facility] Work Phone: Comment on above: 1 Occurrences starting 01/24/2024 until 02/22/2025 End: 12-08-2024 NM Lung Ventilation and Perfusion NM LUNG VENT / PERF VQ Radiology Routine Other secondary pulmonary hypertension (HCC) 1 Occurrences starting 11/09/2023 until 12/08/2024 [facility] Work Phone: Comment on above: 1 Occurrences starting 11/09/2023 until 12/08/2024 Patient Education [facility] Work Phone: Patient referral [facility] Work Phone: pH of Urine [facility] PT ED NEPHROLOGY PT ED NEPHROLOG Y Other 10/30/2023 [facility] Work Phone: PT PLAN OF CARE CERTIFICATION PT PLAN OF CARE CERTIFICATION Procedures Routine Chronic bilateral low back pain with bilateral sciatica At high risk for falls Age-related physical debility Personal history of fall Ordered: 12/09/2021 [facility] Work Phone: Comment on above: Ordered: 12/09/2021 PT PLAN OF CARE CERTIFICATION PT PLAN OF CARE CERTIFICATION Procedures Routine Chronic bilateral low back pain with bilateral sciatica Ordered: 11/29/2022 [facility] Comment on above: Ordered: 11/29/[address] [facility] Urine blood test [facility] Urine culture [facility] Urine dipstick for glucose [facility] Urine dipstick for l eukocyte esterase [facility] Urine dipstick for nitrite [facility] Urine dipstick for protein [facility] Urine examination [facility] Urine microscopy: ep ithelial cells [facility] Urine Microscopy: white cells [facility] Urobilinogen [Presen ce] in Urine [facility] End: 02-16-2025 XR Knee - right 4 Views XR KNEE GENERAL 4V AP BOTH/PA BOTH/LAT/MERC RIGHT Radiology Routine Acute pain of right knee 1 Occurrences starting 01/18/2024 until 02/16/2025 [facility] Work Phone: Comment on above: 1 Occurrences starting 01/18/2024 until 02/16/2025 XR Knee - right 4 Views XR KNEE GENERAL 4V AP BOTH/PA BOTH/LAT/MERC RIGHT Radiology Routine Acute pain of right knee 01/18/2024 12:32 PM EDT [facility] Immunizations Immunization Date Immunization Notes Care Provider [place] 02-14-2024 COVID-19 vaccine, ag e 12+ yr ([facility] Marilia Podlognarciso VMWARE ENGINEER.RUBÉN Work Phone: [facility] 02-14-2024 influenza, high dose seasonal, preservative-free Marilia Podlogar VMWARE ENGINEER.COOKER SULFITE Work Phone: [facility] 02-14-2024 influenza virus vaccine, unspecified formulation Bruno Marquez Jr., MD Work Phone: [facility] 05-15-2023 COVID-19 vaccine, ag e 12+ yr, season (PFIZER-BIONTECH) Marilia Podlogar VMWARE ENGINEER.COOKER SULFITE Work Phone: [facility] 05-15-2023 influenza (HD-IIV4) vaccine, age 65+ yr, high dose, quadrivalent, PF (FLUZONE HIGH-DOSE) Marilia Podlogar VMWARE ENGINEER.COOKER SULFITE Work Phone: [facility] 05-15-2023 influenza virus vaccine, unspecified formulation Leonila Pino RN Work Phone: [facility] 05-06-2023 respiratory syncytia l virus (RSV) vaccine, adjuvanted (AREXVY) Marilia Podlogar VMWARE ENGINEER.COOKER SULFITE Work Phone: [facility] 03-03-2022 zoster vaccine recombinant Anusha Trevino MA [facility] 02-16-2022 Covid Pfizer Bivalen t Booster Dr. Salvador Del Rosario MD Work Phone: [facility] 02-16-2022 influenza, high-dose , quadrivalent vaccine (FLUZONE HIGH DOSE QUADRIVALENT) Agnes Del Rosario MD Work Phone: [facility] 02-16-2022 influenza virus vaccine, unspecified formulation Bruno Marquez Jr., MD Work Phone: [facility] 10-19-2021 zoster vaccine recombinant Mi Nurse Work Phone: [facility] Work Phone: 09-22-2021 COVID-19 original vaccine, age 12+ yr, monovalent (PFIZER-BIONTECH - AGUIAR TOP) Agnes Del Rosario MD Work Phone: [facility] 09-22-2021 COVID-19 vaccine, ag e 12+ yr (PFIZER-BIONTECH - PURPLE TOP) Agnes Del Rosario MD Work Phone: [facility] 02-01-2021 Covid (Pfizer) Dr. Elmer Del Rosario MD Work Phone: [facility] 01-12-2021 influenza, high-dose , quadrivalent vaccine (FLUZONE HIGH DOSE QUADRIVALENT) Agnes Del Rosario MD Work Phone: [facility] 07-17-2020 COVID-19 vaccine, ag e 12+ yr (PFIZER-BIONTECH - PURPLE TOP) Agnes Del Rosario MD Work Phone: [facility] 06-26-2020 COVID-19 vaccine, ag e 12+ yr (PFIZER-BIONTECH - PURPLE TOP) Agnes Del Rosario MD Work Phone: [facility] 02-22-2020 influenza, high-dose , quadrivalent vaccine (FLUZONE HIGH DOSE QUADRIVALENT) Agnes Del Rosario MD Work Phone: [facility] 08-01-2019 tetanus toxoid, redu sakshi diphtheria toxoid, and acellular pertussis vaccine, adsorbed Agnes Del Rosario MD Work Phone: [facility] 02-05-2019 influenza, high dose seasonal, preservative-free Agnes Del Rosario MD Work Phone: [facility] 01-29-2018 influenza virus vaccine, unspecified formulation Agnes Del Rosario MD Work Phone: [facility] 06-09-2017 influenza, high dose seasonal, preservative-free Agnes Del Rosario MD Work Phone: [facility] Work Phone: 05-10-2016 pneumococcal conjuga te vaccine, 13 valent Agnes Del Rosario MD Work Phone: [facility] 02-20-2016 influenza, high dose seasonal, preservative-free Agnes Del Rosario MD Work Phone: [facility] 01-21-2016 Influenza virus vaccine [facility] 02-19-2015 influenza, high dose seasonal, preservative-free Agnes Del Rosario MD Work Phone: [facility] Work Phone: 02-05-2014 influenza, injectabl e, quadrivalent, preservative free Dr. Salvador Del Rosario MD Work Phone: [facility] 02-05-2014 influenza, seasonal, injectable Agnes Del Rosario MD Work Phone: [facility] 03-04-2013 zoster vaccine, live Marcelo Del Rosario MD Work Phone: [facility] 02-09-2013 influenza virus vaccine, unspecified formulation Agnes Del Rosario MD Work Phone: [facility] 04-11-2012 influenza virus vaccine, unspecified formulation Agnes Del Rosario MD Work Phone: [facility] 03-14-2011 influenza virus vaccine, unspecified formulation Agnes Del Rosario MD Work Phone: [facility] Work Phone: 03-08-2010 influenza virus vaccine, unspecified formulation Agnes Del Rosario MD Work Phone: [facility] 03-08-2010 pneumococcal polysaccharide vaccine, 23 valent Agnes Del Rosario MD Work Phone: [facility] 04-20-2009 novel [id number], preservative-free, injectable Dr. Salvador Del Rosario MD Work Phone: [facility] 02-06-2009 influenza virus vaccine, unspecified formulation Agnes Del Rosario MD Work Phone: [facility] Work Phone: 10-04-2007 tetanus toxoid, redu sakshi diphtheria toxoid, and acellular pertussis vaccine, adsorbed Agnes Del Rosario MD Work Phone: [facility] Work Phone: 04-14-2006 influenza virus vaccine, unspecified formulation Agnes Del Rosario MD Work Phone: [facility] Work Phone: 1945 pneumococcal conjuga te vaccine, 7 valent [facility] Payers Date Payer Category Payer Self-pay [id number] 2023 Medicare supplementa l policy (as second payer) [facility] [id number] 2023 Unknown AARP AARP [id number] 2023- [address] [place] [address] [id number] 2017 Private Health Insurance [facility] AARP SUPPLEMENT [id number] 2017-Present [phone] [address] [place] [address] Indemnity [id number] 2017 Private Health Insurance [id number]. [id number] 2017 Unknown [id number] 2014 Unknown [id number] 2009 Medicare MEDICARE MEDICAR E A AND B [id number] 2009-Present [phone] [place] [address] Medicare [id number] [id number] 2009 Medicare [id number] [id number]. [id number] 2009 Medicare [id number] 1944 Unknown [id number] 2.16.840.1.477377.3.579. 2.356 1944 Unknown [id number] 2.16.840.1.242580.3.579. 2.356 1944 Unknown [id number] 2.16.840.1.153289.3.579. 2.1244 Unknown [id number] 2.16.840.1.925407.3.579. 2.462 Unknown [id number] 2.16.840.1.018573.3.579. 2.462 Unknown [id number] 2.16.840.1.771801.3.579. 2.462 Unknown [id number] 2.16.840.1.998223.3.579. 2.462 Unknown [id number] 2.16.840.1.152910.3.579. 2.462 Unknown [id number] 2.16.840.1.722694.3.579. 2.462 Unknown [id number] 2.16.840.1.651940.3.579. 2.462 Unknown [id number] 2.16.840.1.648425.3.579. 2.462 Unknown [id number] 2.16.840.1.261034.3.579. 2.462 Unknown [id number] 2.16.840.1.612740.3.579. 2.462 Unknown [id number] 2.16.840.1.696302.3.579. 2.462 Unknown [id number] 2.16.840.1.212775.3.579. 2.462 Unknown [id number] 2.16.840.1.289989.3.579. 2.462 Unknown [id number] 2.16.840.1.397623.3.579. 2.462 Unknown [id number] 2.16.840.1.585871.3.579. 2.462 Unknown [id number] 2.16.840.1.798356.3.579. 2.462 Unknown [id number] 2.16.840.1.441142.3.579. 2.462 Unknown [id number] 2.16.840.1.798707.3.579. 2.462 Unknown [id number] 2.16.840.1.673011.3.579. 2.462 Unknown [id number] 2.16.840.1.435447.3.579. 2.462 Unknown [id number] 2.16.840.1.243279.3.579. 2.462 Unknown [id number] 2.16.840.1.646225.3.579. 2.462 Unknown [id number] 2.16.840.1.301773.3.579. 2.462 Unknown [id number] 2.16.840.1.594919.3.579. 2.462 Unknown [id number] 2.16.840.1.374159.3.579. 2.462 Unknown [id number] 2.16.840.1.417518.3.579. 2.462 Unknown [id number] 2.16.840.1.267646.3.579. 2.462 Unknown [id number] 2.16.840.1.817226.3.579. 2.462 Unknown [id number] 2.16.840.1.968297.3.579. 2.462 Social History Date Type Detail Facility Start: 01-01-[address] [facility] Start: 1945 End: 1945 Sex Assigned At Male [facility] Start: 04-28-2011 End: 12-25-2024 Tobacco smoking status NHIS Never smoked tobacco [facility] Start: 07-12-2021 End: 10-31-2024 Alcohol intake Current non-drinker of alcohol (finding) [facility] Start: 01-13-2020 End: 10-27-2022 History SDOH Alcohol Frequency 1 [facility] Start: 01-13-2020 History SDOH Alcohol Std Drinks 98 [facility] Start: 11-18-2019 End: 10-27-2022 History SDOH Social Connections Phone 5 [facility] Start: 11-18-2019 End: 10-27-2022 History SDOH Social Connections Get Together 2 [facility] Start: 11-18-2019 End: 10-27-2022 History SDOH Social Connections Religious 3 [facility] Start: 11-18-2019 History SDOH Physical Activity DPW 6 [facility] Start: 10-08-2021 End: 01-15-2024 Exposure to SARS-CoV-2 (event) Not sure [facility] Work Phone: Start: 04-28-2011 End: 11-09-2023 Tobacco use and exposure Smokeless tobacco non-user [facility] Start: 10-27-2022 History SDOH Alcohol Std Drinks 0 [facility] Start: 10-27-2022 History SDOH Social Connections Get Together 4 [facility] Start: 10-27-2022 End: 09-25-2024 History of Social function [facility] Start: 10-27-2022 End: 09-25-2024 Social connection and isolation panel [facility] Do you belong to any clubs or organizations such as sabianist groups, unions, fraternal or athletic groups, or school groups? Yes [facility] Are you now , , , , never or living with a partner? [facility] How often to you hav e a drink containing alcohol? Never [facility] Start: 04-01-2012 End: 03-25-2022 How many standard drinks containing alcohol do you have on a typical day? Patient does not drink [facility] Do you feel stress - tense, restless, nervous, or anxious, or unable to sleep at night because your mind is troubled all the time - these days [OSQ] Not at all [facility] (I/We) worried denny er (my/our) food would run out before (I/we) got money to buy more. Never true [facility] In the past 12 month s, was there a time when you were not able to pay the mortgage or rent on time? No [facility] Start: 07-31-2018 Gender identity Identifies as male gender (finding) [facility] Start: 12-28-2020 Sexual orientation Heterosexual (finding) [facility] Start: 09-04-[address] [facility] Start: 09-04-2016 Spouse/ Significant Other [facility] History of tobacco use Passive smoker [facility] Start: 1945 Sex assigned at Not on file [facility] Work Phone: Start: 07-04-2024 Sex Male (finding) [facility] Medical Equipment Procedure Code Equipment Code Equipment Origin al Text Equipment Identifier Dates ERCP (endoscopic retrograde cholangiopancreatog justin) ([id number]) Polymeric biliary stent, non-bioabsorbable ()[id number] [facility] Start: 03-27-2024 ERCP (endoscopic retrograde cholangiopancreatog justin) ([id number]) Polymeric biliary stent, non-bioabsorbable ()[id number] [facility] Start: 10-07-2024 Liner 36mm 0d F X3 7.9mm Acetabular Hip - [id number] Start: 06-03-2019 Trident Solidback?Acetabula r Shell 58mm F [id number] Start: 06-03-2019 Head V40 36mm 0m m Offset Taper Biolox Delta Femoral Hip - [id number] Start: 06-03-2019 Stem Accolade Ii 6 127d Femoral - [id number] Start: 06-03-2019 Goals Date Patient Goal Desired Activity /State Personal health goal Functional Status Date Assessment Result Facility 01-30-2025 Functional status [facility] 01-30-2025 [facility] Work Phone: 10-24-2024 Functional status Ambulates;Chair [facility] Work Phone: 10-24-2024 Functional status Assistive Devices None [facility] Work Phone: 10-23-2024 Functional status Tolerates Activity Fair [facility] Work Phone: 03-28-2024 Functional status Ambulates [facility] Work Phone: 10-27-2023 Are you deaf, or do you have serious difficulty hearing No 10/27/2023 4:08 PM Virgilio Ambrose, CHAD No [facility] 10-27-2023 Are you blind, or do you have serious difficulty seeing, even when wearing glasses No 10/27/2023 4:08 PM Virgilio Ambrose, CHAD No [facility] 10-27-2023 Do you have serious difficulty walking or climbing stairs No 10/27/2023 4:08 PM Virgilio Ambrose RN No [facility] 10-27-2023 Do you have difficul ty dressing or bathing No 10/27/2023 4:08 PM Virgilio Ambrose RN No [facility] 10-27-2023 Because of a physica l, mental, or emotional condition, do you have difficulty doing errands alone such as visiting a physician's office or shopping No 10/27/2023 4:08 PM Virgilio Ambrose RN No [facility] Mental Status Date Assessment Result Facility 12-26-2024 Cognitive function Voice/Name [facility] Work Phone: 10-24-2024 Cognitive function Voice/Name [facility] Work Phone: 10-21-2024 Cognitive function Level Of Cons ciousness Awake;Alert;Appropriate;Fol lows Commands [facility] Work Phone: 10-07-2024 Cognitive function Voice/Name [facility] Work Phone: 07-04-2024 Cognitive function Voice/Name [facility] Work Phone: 03-28-2024 Cognitive function Level Of Cons ciousness Awake;Alert;Appropriate;Fol lows Commands [facility] Work Phone: 03-27-2024 Cognitive function Voice/Name [facility] Work Phone: 10-27-2023 Because of a physica l, mental, or emotional condition, do you have serious difficulty concentrating, remembering, or making decisions No 10/27/2023 4:08 PM EDT Virgilio Bee RN No [facility] Clinical Notes 06-03-2019 to 01-30-2025 Bruna ChowdarySELENE-COOKER SULFITE - 01/30/2025 10:45 AM EDT Note Date [...] of side effects. documented in this encounter [facility] Work Phone: 12-26-20[address] Consult [address] [facility] 12-26-2024 Consult note [facility] 12-26-2024 Consult note Note Date/Time December 26, 2024 11:21am [facility] Medical Records Department [address] [place] [address] Pre-Anesthesia Evaluation 12/26/24 1115 MR#: [id number] Acct: [id number] Name: FRAN PAREKH Rep #:[id number] : 1945 79 From: Abundio Merrill MD PCP: Dr. 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- ERCP 03/24. 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 Female No 12/25/24 10:12 HX of Motion [...] 12/26/24 10:28 Respiratory Assessment Respiratory Assessment - bridge crane operator: Respiratory Tract Infection Hx - bridge crane operator Hx Respiratory Tract Infection No 12/25/24 10:12 STOP Sleep Apnea STOP Sleep Apnea - bridge crane operator: STOP Sleep Apnea - bridge crane operator Hx Hypertension Yes: CONTROLLED WITH MED 12/25/24 [...] 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 Use History - bridge crane operator: Tobacco Use History - bridge crane operator Tobacco Use Smoking Status Never smoker 12/25/24 10:12 Hx Tobacco Use No 12/25/24 10:12 Years Smoking Packs Smoked per Day Smoking Cessation Date was within the last 15 years Hx Smoking Cessation Date Hx Smoking Cessation Counseling Hematologic Medial History Hematologic Hx - bridge crane 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 Work Phone: 1(709) 861-711608-28-2025 History and physical note Author Alex Friend [facility] Note Date/Time December 26, 2024 10 :36am [facility] Medical Records Department [address] [place] [address] History & Physical Exam 12/26/24 1035 MR#: [id number] Acct: [id number] Name: FRAN PAREKH Rep #:[id number] : 1945 79 From: Alex Sher PCP: Dr. Salvador Del Rosario MD Status :[facility] Location: [place] [address] HPI - General General Date of Admission: 12/26/24 Date of Service: 12/26/24 Chief Complaint: stent removal HPI Narrative [facility] hospitalization 03.26.24 - 03.28.24 dizziness - consulted [...] was placed into the common bile duct. [facility] 6..25-6..25 with fever of unknown origin possible cholangitis. Discharged with antibiotics OV 7.9.25 Pt here today for f/u after [facility] admission for fever. Pt has been doingwell since discharge with no GI complaints. [facility] Medical History Ambulates with cane Arthritis Injury [...] test Pancreatic cyst Choledocholithiasis Current use of usp 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 Elevated liver enzymes Pancreatic mass High [...] today for hospital f/u. Pt established with [facility] in March 2024 during admission for pancreatitis. [...] Del Rosario MD; Alex Sher DO~ Signed [facility] Work Phone: 1(612) 973-331808-28-2025 Procedure note [facility] Medical Records Department [address] [place] [address] ERCP Report MR#: [id number] Acct: [id number] Name: FRAN PAREKH Rep #:[id number] : 1945 79 From: Alex Sher DO PCP: Dr. Salvador Del Rosario MD Status :[facility] Patient Name: Fran Parekh Procedure Date: 12/26/2024 [...] hours 26 minutes 41 seconds Findings: The basketball scout film was normal. The scope was advanced [...] biliary tree. Procedure Code(s): --- Professional --- 38322, Endoscopic retrograde cholangiopancreatography (ERCP); with removal of foreign body(s) or stent(s) from biliary/pancreatic duct(s) 71970, Endoscopic retrograde cholangiopancreatography (ERCP); with removal of calculi/debris from biliary/pancreatic duct(s) 65284, Endoscopic retrograde cholangiopancreatography (ERCP); with sphincterotomy/papillotomy 40395, Esophagogastroduodenoscopy, flexible, transoral; with removal of tumor(s), polyp(s), or other lesion(s) by snare technique 89257, 26, Endoscopic catheterization of the biliary ductal system, radiological supervision and interpretation CPT copyright 2021 [employer]. All rights reserved. The codes documented in this report are preliminary and upon childbirth educator review may be revised to meet current compliance requirements. Alex Sher DO 12/26/2024 12:29:22 PM This report has been signed electronically. Number of Addenda: 0 Note Initiated On: 12/26/2024 11:16 AM 12/26/24 1229 Date _ Alex Sher DO Cosigner Signature: Date (if indicated) CC: Dr. Salvador Del Rosario MD; Alex Sher DO ~ Date Dictated: 12/26/24 1116 Date Transcribed: Needle Maker: RF Signed [facility]08-28-2025 Procedure note [facility] Medical Records Department [address] [place] [address] Provation Physician Letter MR#: [id number] Acct: [id number] Name: FRAN PAREKH Rep #:[id number] : 1945 79 From: Alex Sher DO PCP: Dr. Salvador Del Rosario MD Status :[facility] 12/26/2024 Salvador Del Rosario Re : ERCP [...] DO ~ Date Dictated: 12/26/241115 Date Transcribed: Needle Maker: LUIS Signed [facility]08-28-2025 Consult note [facility] Medical Records Department [address] [place] [address] Pre-Anesthesia Evaluation 12/26/241114 MR#: [id number] Acct: [id number] Name: FRAN PAREKH Rep #:[id number] : 1945 79 From: Abundio Merrill MD PCP: Dr. 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- ERCP 03/24. 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 Female No 12/25/24 10:12 HX of Motion [...] 12/26/24 10:28 Respiratory Assessment Respiratory Assessment - bridge crane operator: Respiratory Tract Infection Hx - bridge crane operator Hx Respiratory Tract Infection No 12/25/24 10:12 STOP Sleep Apnea STOP Sleep Apnea - bridge crane operator: STOP Sleep Apnea - bridge crane operator Hx Hypertension Yes: CONTROLLED WITH MED 12/25/24 [...] 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 Use History - bridge crane operator: Tobacco Use History - bridge crane operator Tobacco Use Smoking Status Never smoker 12/25/24 10:12 Hx Tobacco Use No 12/25/24 10:12 Years Smoking Packs Smoked per Day Smoking Cessation Date was within the last 15 years Hx Smoking Cessation Date Hx Smoking Cessation Counseling Hematologic Medial History Hematologic Hx - bridge 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08-28-2025 History and physical note [facility] Medical Records Department [address] [place] [address] History & Physical Exam 12/26/24 1035 MR#: [id number] Acct: [id number] Name: FRAN PAREKH Rep #:[id number] : 1945 79 From: Alex Friend DO PCP: Dr. Salvador Del Rosario MD Status :[facility] Location: [place] [address] HPI - General General Date of Admission: 12/26/24 Date of Service: 12/26/24 Chief Complaint: stent removal HPI Narrative [facility] hospitalization 03.26.24 - 03.28.24 dizziness - consulted [...] was placed into the common bile duct. [facility] 6..-6. with fever of unknown origin possible cholangitis. Discharged with antibiotics OV 7.9.25 Pt here today for f/u after [facility] admission for fever. Pt has been doingwell since discharge with no GI complaints. [facility] Medical History Ambulates with cane Arthritis Injury [...] test Pancreatic cyst Choledocholithiasis Current use of buttermaker continuous churn 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 Elevated liver enzymes Pancreatic mass High [...] today for hospital f/u. Pt established with [facility] in March 2024 during admission for pancreatitis. [...] Del Rosario MD; Alex Sher, ~ Signed [facility]08-28-2025 [facility]08-25-2025 Telephone encounter Note* Telephone Encounter - Agustín Monroy RN - 12/23/2024 8:43 AM EDT Patient calls to request x-ray results of left hand/wrist from 10/08/2024 be faxed to pain management (Dr. Cabezas). Faxed to [phone] per request. Agustín Monroy RN [facility]08-25-2025 Miscellaneous Notes* Telephone Encounter - Agustín Monroy RN - 12/23/2024 8:43 AM EDT Patient calls to request x-ray results of left hand/wrist from 10/08/2024 be faxed to pain management (Dr. Cabezas). Faxed to [phone] per request. Agustín Monroy RN documented [facility] encounter[facility] Telephone encounter Note * Telephone Encounter - Alethea Lino MA - 11/19/2024 12:10 PM EDT Faxed to # on form Alethea Lino MA [facility]07-22-2025 Miscellaneous Notes* Telephone Encounter - Alethea Lino [...] Dr. Carin Katz LPN documented in this encounterTri[facility] Telephone encounter Note * Telephone Encounter - Agnes Del Rosario MD - 11/19/2024 7:40 AM EDT Forms completed. [facility]07-18-2025 Telephone encounter Note* Telephone Encounter - Pallavi Katz LPN - 11/15/2024 2:31 PM EDT Patient has been identified by name and date of : Type of form: Eliquis Form received via: Fax When form is completed, fax form to fax number provided. Form has been forwarded to: Provider's desk. Provider name: Dr. Carin Katz LPN [facility]07-18-2025 Telephone encounter Note* Telephone Encounter - Jennifer [...] if they have the refill on file. [facility]07-18-2025 Miscellaneous Notes* Telephone Encounter - Jennifer Lee [...] 13, 2024 2:12 PM documented in this encounterTri[facility]-2025 NoteHNO ID: [id number] Author: JOHN DUNLAP RN Service: ? Author Type: Registered Nurse Type: Progress Notes Filed: 11/15/2024 10:47 Note Text: Transitional Care Management (TCM) Follow-Up Note PCP Update / Actionable Items N/A N/A - No specialty updates needed Patient Source: Uie-dl-Bluuhdj (OON) Discharge Outreach Summary: Outreach Summary: Feeling [...] call if any questions or concerns. Thanks [facility] for the call. Contact: Contact made with [...] John Dunlap RN November 15, 2024 10:28 [facility]07-18-2025 History of Present illness Narrative* John Dunlap RN - 11/15/2024 10:28 AM EDT Transitional Care Management (TCM) Follow-Up Note PCP Update / Actionable Items N/A N/A - No specialty updates needed Patient Source: Geq-oz-Wdbrayj (OON) Discharge Outreach Summary: Outreach Summary: Feeling [...] call if any questions or concerns. Thanks [facility] for the call. Contact: Contact made with [...] 15, 2024 10:28 AM documented in this encounterTri[facility] Telephone encounter Note * Telephone Encounter - Amara Owen MA - 11/15/2024 9:54 AM EDT HCTZ was refilled 11/05/24 #90 with 1 refills to [facility]. Message left for pt to call back. Amara Owen MA [facility]07-18-2025 NotePatient Outreach (AMBCMG) FRAN PAREKH ([id number]) 1945 Date Time Provider Department 11/15/24 JOHN DUNLAP AMBG During your visit today, we recorded the following information about you: John Dunlap RN 11/15/2024 10:47 AM Signed Transitional Care Management (TCM) Follow-Up Note PCP Update / Actionable Items N/A N/A - No specialty updates needed Patient Source: Rgq-sv-Fvouxsu (OON) Discharge Outreach Summary: Outreach Summary: Feeling [...] call if any questions or concerns. Thanks [facility] for the call. Contact: Contact made with [...] mouth daily at bedtime. - CPAP AutoPAP [id number]. Mask per preference, tubing, filters, humidity. [employer]. Dx: G47.33. Fax 30 day compliance report to [phone]. - CPAP Please provide mask fitting. 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 [facility]07-16-2025 Telephone encounter Note* Telephone Encounter - [...] Alondra Azar November 13, 2024 2:12 PM [facility]07-07-2025 Telephone encounter Note* Telephone Encounter - Marielle [...] Marielle Barahona November 04, 2024 3:21 PM [facility]07-07-2025 Miscellaneous Notes* Telephone Encounter - Marielle Barahona [...] 04, 2024 3:21 PM documented in this encounterTrihealth [facility]07-[facility]-2025 NoteHNO ID: [id number] Author: KULWINDER DICKSON LPN Service: ? Author Type: LICENSED NURSE Type: Progress Notes Filed: 10/31/2024 13:28 Note Text: Faxed Cpap mask/supply order to [employer]. [facility] History of Present illness Narrative* Kulwinder Dickson LPN - 10/31/2024 1:28 PM EDT Faxed Cpap mask/supply order to [employer]. Kulwinder Dickson LPN * Ghazala Kumar APRN.RUBÉN - 10/31/2024 11:00 AM EDT Images from the original note were not included. [facility] Follow up/ Established patient [...] by mouth daily at bedtime. CPAP AutoPAP [id number]. Mask per preference, tubing, filters, humidity. [employer] Supplies. Dx: G47.33. Fax 30 day compliance report to [phone]. CPAP Please provide mask fitting. Pt with [...] - Continue Auto CPAP at 10-20, DME [id number]. - Remember to clean your mask and equipment regularly, as directed. - You should be eligible for new supplies approximately every 3-6 months, depending on your insurance coverage. Contact your Durable Medical Equipment (DME) company for new supplies as needed. - Follow up in [address] Antwan Kumar APRN.COOKER SULFITE documented in this encounterTrihealth [facility]07-[facility]-2025 NoteHNO ID: [id number] Author: JOHN DUNLAP RN Service: ? Author Type: Registered Nurse Type: Progress Notes Filed: 10/31/2024 12:04 Note Text: Transitional Care Management (TCM) Follow-Up Note PCP Update / Actionable Items N/A N/A - No specialty updates needed Patient Source: Icc-xd-Xvevhzg (OON) Discharge [place] Outreach Summary: Reports feeling better. No questions or concerns at this time. Monitoring diet/salt intake. Denies any new or worsening symptoms at this time. Healthy at Home number given to patient. Advised to call if any questions or concerns. Thanks [facility] for the call. Contact: Contact made with [...] care topics, and follow-up needed upon discharge. Jonh Dunlap RN October 31, 2024 12:01 [facility]07-03-2025 History of Present illness Narrative* John Dunlap RN - 10/31/2024 12:00 PM EDT Transitional Care Management (TCM) Follow-Up Note PCP Update / Actionable Items N/A N/A - No specialty updates needed Patient Source: Awd-ja-Afkabue (OON) Discharge [place] Outreach Summary: Reports feeling better. No questions or concerns at this time. Monitoring diet/salt intake. Denies any new or worsening symptoms at this time. Healthy at Home number given to patient. Advised to call if any questions or concerns. Thanks [facility] for the call. Contact: Contact made with [...] 31, 2024 12:01 PM documented in this encounterTrihealth [facility]07-03-2025 NoteHNO ID: [id number] Author: GHAZALA KUMAR APRN.COOKER SULFITE Service: ? Author Type: Nurse Practitioner Type: Progress Notes Filed: 10/31/2024 11:19 Note Text: [facility] Follow up/ Established patient [...] by mouth daily at bedtime. CPAP AutoPAP [id number]. Mask per preference, tubing, filters, humidity. [employer]. Dx: G47.33. Fax 30 day compliance report to [phone]. CPAP Please provide mask fitting. Pt with [...] - Continue Auto CPAP at 10-20, DME [id number]. - Remember to clean your mask and equipment regularly, as directed. - You should be eligible for new supplies approximately every 3-6 months, depending on your insurance coverage. Contact your Durable Medical Equipment (DME) company for new supplies as needed. - Follow up in [address] Antwan Kumar APRN.[facility]07-03-2025 NotePatient Outreach (AMBCMG) FRAN PAREKH ([id number]) 1945 M Date Time Provider Department 10/31/24 JOHN DUNLAP [facility] During your visit today, we recorded the following information about you: John Dunlap RN 10/31/2024 12:04 PM Signed Transitional Care Management (TCM) Follow-Up Note PCP Update / Actionable Items N/A N/A - No specialty updates needed Patient Source: Ajb-pw-Mbnpvuq (OON) Discharge [place] Outreach Summary: Reports feeling better. No questions or concerns at this time. Monitoring diet/salt intake. Denies any new or worsening symptoms at this time. Healthy at Home number given to patient. Advised to call if any questions or concerns. Thanks [facility] for the call. Contact: Contact made with [...] mouth daily at bedtime. - CPAP AutoPAP [id number]. Mask per preference, tubing, filters, humidity. [employer] Supp[employer]. Dx: G47.33. Fax 30 day compliance report to [phone]. - CPAP Please provide mask fitting. 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 Sissy Campbell LPN [facility]07-02-2025 Miscellaneous Notes* Telephone Encounter - Sissy Campbell [...] he was just at [employer] to picker feeder his CPAP supplies, and [facility] [employer] told him he hasn't had an appt with Sleep Doctor in over a year, and needs an appt. Please phone pt to schedule appt with sleep provider. documented in this encounterTrihealth [facility]07-02-2025 Telephone encounter Note * Telephone Encounter - Kulwinder Dickson LPN - 10/30/2024 9:18 AM EDT TC to pt. LM to call office, to schedule Cpap follow up appointment with either Dr Marquez or Valerie. Kulwinder Dickson LPN [facility]07-02-2025 Telephone encounter Note* Telephone Encounter - Malachi Castillo RN - 10/30/2024 9:05 AM EDT Pt reports he was just at [employer] to picker feeder his CPAP supplies, and [employer] told him he hasn't had an appt with Sleep Doctor in over a year, and needs an appt. Please phone pt to schedule appt with sleep provider. [facility]06-30-2025 Instructions* Patient Instructions* Marilia Orozco APRN.CNP - 10/28/2024 2:29 PM EDT - Continue your current home medications as prescribed: lisinopril, atorvastatin, Eliquis, levothyroxine, hydrochlorothiazide, multivitamin, aspirin, gabapentin, and metoprolol. - Maintain a bland, nutrition services assistant diet and avoid snacking; gradually add other foods as you continue to feel better. - Consider enrolling in the [facility] Why weight program for guided nutrition education [...] changes consistent with osteoarthritis.' documented in this encounterTri[facility]25 NoteHNO ID: [id number] Author: MARILIA OROZCO APRN.RUBÉN Service: ? Author Type: Nurse Practitioner Type: Progress Notes Filed: 10/28/2024 14:29 Note Text: 10/28/2024 Patient presents with: Hospital F/U Recording using CarePayment software for draft documentation of the visit was discussed with the patient/authorized senior patient account representative; all questions welcomed and answered. Patient/authorized senior patient account representative agreed to proceed SUBJECTIVE: This is [...] since discharge. - Monitoring diet closely, eating nutrition services assistant meals, and avoiding snacks. - No new [...] APRN, CNP within 14 days. Thank you! [facility] Referral Source of Stratification: [facility] Hospital Admission Status: Discharged Readmission Risk Score: N/A OON Patient's zip code: [address] Is zip code within program service area: No Patient meets program referral criteria: No Patient does not qualify for High Risk TCM Home Visit program due to: Patient's zip code is not located within program service area Readmission Risk Score does not meet criteria Disposition: Patient does not qualify for HRTIC, will provide TCM outreach follow-up for 30-days Patient Source: Cng-bc-Lzlsuqh (OON) Discharge Outreach Summary: Patient feeling much better. 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 Thanks [facility] for the call. Patient discharged from Out of [facility] Discharge date: 10/24/2024 Admitted for: Fever, nausea, vomiting, Cholangitis, ROSSANA Readmission Risk: N/A OON Value-Based Contract: ACO Contact: Contact made with patient: Yes Hi, my name is John Dunlap RN and I am calling from the [facility] on behalf of your Primary Care Provider, [...] is a great wa (more content not included)...[facility]06-30-2025 History of Present illness Narrative* Marilia Orozco APRN.CNP - 10/28/2024 1:40 PM EDT 10/28/2024 Patient presents with: Hospital F/U Recording using ambient MOLOME software for draft documentation of the visit was discussed with the patient/authorized senior patient account representative; all questions welcomed and answered. Patient/authorized senior patient account representative agreed to proceed SUBJECTIVE: This is [...] since discharge. - Monitoring diet closely, eating nutrition services assistant meals, and avoiding snacks. - No new [...] TCM Home Visit Referral Source of Stratification: [facility] Hospital Admission Status: Discharged Readmission Risk Score: N/A OON Patient's zip code: [address] Is zip code within program service area: No Patient meets program referral criteria: No Patient does not qualify for High Risk TCM Home Visit program due to: Patient's zip code is not located within program service area Readmission Risk Score does not meet criteria Disposition: Patient does not qualify for HRTIC, will provide TCM outreach follow-up for 30-days Patient Source: Xqg-vw-Cnrjaaf (OON) Discharge Outreach Summary: Patient feeling much better. 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 Thanks [facility] for the call. Patient discharged from [facility] Discharge date: 10/24/2024 Admitted for: Fever, nausea, vomiting, Cholangitis, ROSSANA Readmission Risk: N/A OON Value-Based Contract: ACO Contact: Contact made with patient: Yes Hi, my name is John Dunlap RN and I am calling from the [facility] on behalf of your Primary Care Provider, [...] I will send your request to a manufacturing scheduler who will contact and assist you with [...] by mouth daily at bedtime. CPAP AutoPAP [id number]. Mask per preference, tubing, filters, humidity. [employer]. Dx: G47.33. Fax 30 day compliance report to [phone]. CPAP Please provide mask fitting. Pt with [...] agreeable to treatment plan documented in this encounterTrihealth [facility]06-[facility]25 NoteHNO ID: [id number] Author: ?, ?, ? Service: ? Author Type: ? Type: Progress Notes Filed: 10/25/2024 14:29 Note Text: POPULATION HEALTH NAVIGATION OUTREACH Action/FYI Spoke to patient. Scheduled TCM follow up with sleeve setter safety stitch on 10-28-24. Agreeable to see sleeve setter safety stitch. discharged from Out of [facility] Discharge date: 10/24/2024 Admitted for: Fever, [...] Hospital Follow-up: Low risk <9% [facility] MARILIA OROZCO - discharged from [facility], Discharge date: 10/24/2024, Admitted for: Fever, nausea, vomiting, Cholangitis, ROSSANA, Readmission Risk: N/A OON 02/12/2025 in [facility] with MARILIA OROZCO - 6 month follow up Navigation Signature: Balbina Abbott Population Health Navigator October 25, 2024 2:24 [facility]06-27-2025 History of Present illness Narrative* [facility] NavigatorBalbina - 10/25/2024 2:24 PM EDT POPULATION HEALTH NAVIGATION OUTREACH Action/FYI Spoke to patient. Scheduled TCM follow up with rubén on 10-28-24. Agreeable to see sleeve setter safety stitch. discharged from Out of Network- Discharge date: [...] Hospital Follow-up: Low risk <9% 10/28/2024 in [facility] with MARILIA OROZCO - discharged from Out of Network-, Dischargedate: 10/24/2024, Admitted for: Fever, nausea, vomiting, Cholangitis, ROSSANA, Readmission Risk: N/A OON 02/12/2025 in [facility] with MARILIA OROZCO - 6 month follow up Navigation Signature: Balbina Abbott [facility] Navigmonty October 25, 2024 2:24 PM [...] Risk Score: N/A OON Patient's zip code: [address] Is zip code within program service area: No Patient meets program referral criteria: No Patient does not qualify for High Risk TCM Home Visit program due to: Patient's zip code is not located within program service area Readmission Risk Score does not meet criteria Disposition: Patient does not qualify for HRTIC, will provide TCM outreach follow-up for 30-days Patient Source: Hxo-ma-Jvjuopt (OON) Discharge Outreach Summary: Patient feeling much better. 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 [facility] Dis[facility] date: 10/24/2024 Admitted for: Fever, nausea, vomiting, Cholangitis, ROSSANA Readmission Risk: N/A OON Value-Based Contract: ACO Contact: Contact made with patient: Yes Hi, my name is John Dunlap RN and I am calling from the [facility] on behalf of your Primary Care Provider, [...] I will send your request to a manufacturing scheduler who will contact and assist you with [...] 25, 2024 1:46 PM documented in this encounterTrihealth [facility] Sam[facility]06-27-2025 NoteHNO ID: [id number] Author: JOHN DUNLAP RN Service: ? Author [...] TCM Home Visit Referral Source of Stratification: [facility] Hospital Admission Status: Discharged Readmission Risk Score: N/A OON Patient's zip code: [address] Is zip code within program service area: No Patient meets program referral criteria: No Patient does not qualify for High Risk TCM Home Visit program due to: Patient's zip code is not located within program service area Readmission Risk Score does not meet criteria Disposition: Patient does not qualify for HRTIC, will provide TCM outreach follow-up for 30-days Patient Source: Aby-jq-Anpwwlm (OON) Discharge Outreach Summary: Patient feeling much better. 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 Thanks [facility] for the call. [facility] Discharge date: 10/24/2024 Admitted for: Fever, nausea, vomiting, Cholangitis, ROSSANA Readmission Risk: N/A OON Value-Based Contract: ACO Contact: Contact made with patient: Yes Hi, my name is John Dunlap RN and I am calling from the [facility] on behalf of your Primary Care Provider, [...] I will send your request to a manufacturing scheduler who will contact and assist you with [...] John Dunlap RN October 25, 2024 1:46 [facility]06-27-2025 NotePatient Outreach (BALWINDERCMG) FRAN PAREKH ([id number]) 1945 M Date Time Provider Department 10/25/24 OJHN DUNLAP During your visit today, we recorded [...] TCM Home Visit Referral Source of Stratification: [facility] Hospital Admission Status: Discharged Readmission Risk Score: N/A OON Patient's zip code: [address] Is zip code within program service area: No Patient meets program referral criteria: No Patient does not qualify for High Risk TCM Home Visit program due to: Patient's zip code is not located within program service area Readmission Risk Score does not meet criteria Disposition: Patient does not qualify for HRTIC, will provide TCM outreach follow-up for 30-days Patient Source: Ndy-sj-Jhcpdbb (OON) Discharge Outreach Summary: Patient feeling much better. 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 [facility]06-26-2025 [facility]06-26-2025 Discharge summary [facility] Medical Records Department [address] [place] [address] Instructions for Home/Discharge Instructions 10/24/24 1233 MR#: [id number] Acct: [id number] Name: FRAN PAREKH Rep #:[id number] : [...] MD; Dr. Werner Nunn DO ~ Signed [facility]06-25-2025 Progress note Author Alex Sher [facility] Note Date/Time October 23, 2024 6:18 pm [facility] Medical Records Department [address] [place] [address] Progress Note 10/23/24 181 MR#: [id number] Acct: [id number] Name: FRAN PAREKH Rep #:[id number] : 1945 79 From: Alex Sher DO PCP: Dr. Salvador Del Rosario MD Status :ADM IN [facility] Progress Note I saw patient today the [...] in the clinic. Visit Charges Inpatient E&M: 44492 [facility] Hosp 10/23/241817 <Electronically signed by Alex Sher DO> Alex Sher DO Cosigner Signature (if applicable): CC: ~ Signed [facility] Work Phone: 1(714) 811-859606-25-2025 Progress note [facility] Medical Records Department [address] [place] [address] Progress Note 10/23/241815 MR#: [id number] Acct: [id number] Name: IGLESIAFRAN DOMINGUEZ Rep #:[id number] : 1945 79 From: Alex Sher DO PCP: Dr. Salvador Del Rosario MD Status :ADM IN [facility] Progress Note I saw patient today the [...] in the clinic. Visit Charges Inpatient E&M: 30325 [facility] Hosp L3 10/23/241817 Alex Sher DO Cosigner Signature (if applicable): CC: ~ Signed [facility]06-25-2025 Consult note Author Alxe Sher [facility] Note Date/Time October 23, 2024 4:00 pm [facility] Medical Records Department [address] [place] [address] Consultation - GI 10/22/241817 MR#: [id number] Acct: [id number] Name: FRAN PAREKH Rep #:[id number] : 1945 79 From: Alex Sher DO PCP: Dr. Salvador Del Rosario MD Status :ADM IN [facility] HPI Consult Data Date of Consult: 10/22/24 [...] abdominal pain with nausea vomiting. GI history: [facility] hospitalization 03.26.24 - 03.28.24 dizziness - consulted [...] for CMV (cytomegalovirus) is negative (performed at [facility]) - IHC for p53 is wild-type. - [...] ERCP scope. Resection and retrieval were complete. [facility] Medical History Carpal tunnel syndrome on both sides Cancer Wears glasses Thyroid disease Shingles Inguinal hernia Cardiology follow-up encounter History of stress test Choledocholithiasis Current use of usp 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 Elevated liver enzymes Pancreatic mass High [...] 88.6 H, Lymph % (Auto) 4.8 L, [place] % (Auto) 5.8, Eos % (Auto) 0.1, [...] Clarity Clear, Urine pH 6.5, Ur Specific [place] 1.010, Urine Protein 30 H, Urine Glucose [...] lower pole measuring 3.2 cm. Reading Location: [facility] Assessment & Plan Assessment/Plan (1) Fever: QUALIFIERS: [...] underlying infection. Charges/Coding Visit Charges Inpatient E&M: 93194 Init Hosp L3 10/23/24 1600 <Electronically signed by Alex Sher DO> Cosigner Signature (if applicable): CC: Dr. Salvador Del Rosario MD~ Signed [facility] Work Phone: 1(991) 827-574106-25-2025 Progress note Author Marleny Tena [facility] Note Date/Time October 23, 2024 3:[address] [facility] Medical Records Department [address] [place] [address] Progress Note - Hospitalist 10/23/24 1456 MR#: [id number] Acct: [id number] Name: IGLESIAFRANDaisy FOFANAEY Rep #:[id number] : 1945 79 From: Marleny Tena DO PCP: Dr. Salvador Del Rosario MD Status :ADM IN Location: [place] [address]-1 Reason for Visit Reason for Visit: Diagnoses [...] Clarity Clear, Urine pH 6.5, Ur Specific [place] 1.010, Urine Protein 30 H, Urine Glucose [...] 71.7 H, Lymph % (Auto) 17.6 L, [place] % (Auto) 9.8, Eos % (Auto) 0.2, [...] 35 minutes Charges/Coding Visit Charges Inpatient E&M: 26440 Subs Hosp L2 10/23/24 1503 <Electronically signed by Marleny Tena DO> Cosigner Signature (if applicable): CC: ~ Signed [facility] Work Phone: 1(854) 831-191006-25-2025 Consult note [facility] Medical Records Department [address] [place] [address] Consultation - GI 10/22/24 1818 MR#: [id number] Acct: [id number] Name: FRAN PAREKH Rep #:[id number] : 1945 79 From: Alex [facility] PCP: Dr. Salvador Del Rosario MD Status :ADM IN Location: [facility] VQ332-4 HPI Consult Data Date of Consult: 10/22/24 [...] to abdominal pain with nauseavomiting. GI history: [facility] hospitalization 03.26.24 - 03.28.24 dizziness - consulted [...] for CMV (cytomegalovirus) is negative (performed at [facility]) - IHC for p53 is wild-type. - [...] ERCP scope. Resection and retrieval were complete. [facility] Medical History Carpal tunnel syndrome on both sides Cancer Wears glasses Thyroid disease Shingles Inguinal hernia Cardiology follow-up encounter History of stress test Choledocholithiasis Current use of usp 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 Elevated liver enzymes Pancreatic mass High [...] 88.6 H, Lymph % (Auto) 4.8 L, [place] % (Auto) 5.8, Eos % (Auto) 0.1, [...] Clarity Clear, Urine pH 6.5, Ur Specific [place] 1.010, Urine Protein 30 H, Urine Glucose [...] No evidence for acute abnormality. Reading Location: [facility]Piggyback[facility]IN1 Abdomen/Pelvis CT 10/22/24 04:02 IMPRESSION: Unchanged benign [...] diffuse thickening of the gallbladder. Reading Location: [facility]CHAM[facility] MRCP 10/22/24 04:47 IMPRESSION: There is a [...] underlying infection. Charges/Coding Visit Charges Inpatient E&M: 52081 Init Hosp L3 10/23/24 1600 Cosigner Signature (if applicable): CC: Dr. Salvador Del Rosario MD~ Signed [facility]06-25-2025 Progress note [facility] Medical Records Department [address] [place] [address] Progress Note - Hospitalist 10/23/24 1456 MR#: [id number] Acct: [id number] Name: FRAN PAREKH Rep #:[id number] : 1945 79 From: Marleny Tena DO PCP: Dr. Salvador Del Rosario MD Status :ADM IN Location: [facility] NR878-0 Reason for Visit Reason for Visit: Diagnoses [...] Clarity Clear, Urine pH 6.5, Ur Specific [place] 1.010, Urine Protein 30 H, Urine Glucose [...] 71.7 H, Lymph % (Auto) 17.6 L, [place] % (Auto) 9.8, Eos % (Auto) 0.2, [...] 35 minutes Charges/Coding Visit Charges Inpatient E&M: 58544 Subs Hosp L2 10/23/24 1503 Cosigner Signature (if applicable): CC: ~ Signed [facility]06-24-2025 Progress note Author Marleny Tena [facility] Note Date/Time October 22, 2024 6:35 pm [facility] Medical Records Department [address] [place] [address] Progress Note - Hospitalist 10/22/241828 MR#: [id number] Acct: [id number] Name: FRAN PAREKH Rep #:[id number] : 1945 79 From: Marleny Tena DO PCP: Dr. Salvador Del Rosario MD Status :ADM IN Location: [place] [address] Hospitalist Note Patient was seen and examined [...] Cosigner Signature (if applicable): CC: ~ Signed [facility] Work Phone: 1(680) 155-975606-24-2025 Progress note [facility] Medical Records Department [address] [place] [address] Progress Note - Hospitalist 10/22/241828 MR#: [id number] Acct: [id number] Name: FRAN PAREKH Rep #:[id number] : 1945 79 From: Marleny Tena DO PCP: Dr. Salvador Del Rosario MD Status :ADM IN [facility] Hospital[facility] Note Patient was seen and examined [...] Cosigner Signature (if applicable): CC: ~ Signed [facility]06-24-2025 History and physical note Author Werner Shin [facility] Note Date/Time October 22, 2024 6:55 am [facility] Medical Records Department [address] [place] [address] H&P Exam - Hospitalist 10/22/24 0359 MR#: [id number] Acct: [id number] Name: FRAN PAREKH Rep #:[id number] : 1945 79 From: Werner Castañeda DO PCP: Dr. Salvador Del Rosario MD Status :ADM IN [facility] - General General Date of Admission: [...] subsequent negative biopsy who now re-presents to [facility] ER complaining of fever, nausea and vomiting. 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 Reading Location: [facility] Imaging Services [address] [place] [address] Abdomen/Pelvis W IV Cont ONLY MR#: [id number] Acct: [id number] Name: FRAN PAREKH Rep #: [id number] : 1945 M 79 From: Harsh Granger MD PCP: Dr. Salvador Del Rosario MD Status: REG ER Study: Abdomen/Pelvis W IV Cont ONLY Date of Exam: 10/22/24 Exam# [id number] Ordering Dr: Manuel Alvarez MD PROCEDURE: ABDOMEN/PELVIS [...] diffuse thickening of the gallbladder. Reading Location: [place] [address] CC: Dr. Manuel Alvarez MD; Dr. Salvador Del Rosario MD ~ Needle Maker: Signed Assessment & Plan Assessment/Plan (1) Cholangitis: [...] biliary tree. Give acetaminophen as needed for lnoy-ua-tmqnfyyb (level 1-5/10) pain or fever. Give morphine [...] 75 minutes. Charges/Coding Visit Charges Inpatient E&M: 25695 Init Hosp L3 10/22/24 0634 <Electronically signed by Werner Nunn DO> Cosigner Signature (if applicable): CC: Dr. Salvador Del Rosario MD; Dr. Werner Nunn, DO~ Signed [facility] Work Phone: 1(681) 273-363906-24-2025 Telephone encounter Note* Telephone Encounter - Kulwinder Whelan RN - 10/22/2024 8:36 AM EDT Marquita from [facility] patient floor calling as she states pt was admitted there this morning for chlangitis, lactic acidosis, nausea & vomiting and ROSSANA. Asking for a copy of pt's current med list to befaxed to them at [phone]. Med list copied and faxed as requested. [facility]06-24-2025 Miscellaneous Notes* Telephone Encounter - Kulwinder Whelan RN - 10/22/2024 8:36 AM EDT Marquita from [facility] patient floor calling as she states pt was admitted there this morning for chlangitis, lactic acidosis, nausea & vomiting and ROSSANA. Asking for a copy of pt's current med list to befaxed to them at [phone]. Med list copied and faxed as requested. documented in this encounterTri[facility]06-[facility] Discharge summary Author Manuel Alvarez [facility] Note Date/Time October 22, 2024 5:02 am [facility] Medical Records Department [address] [place] [address] Emergency Department Summary 10/22/24 MR#: [id number] Acct: [id number] Name: IGLESIAFRAN ALBERTO Rep #:[id number] : [...] and the [facility] Medical History Carpal tunnel syndrome on both sides Cancer Wears glasses Thyroid disease Shingles Inguinal hernia Cardiology follow-up encounter History of stress test Choledocholithiasis Current use of buttermaker continuous churn 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 Elevated liver enzymes Pancreatic mass High [...] 88.6 H Lymph % (Auto) 4.8 L [place] % (Auto) 5.8 Eos % (Auto) 0.1 [...] diffuse thickening of the gallbladder. Reading Location: [place] [address] Rhythm Strip Rhythm Strip: Sinus Rhythm Rate: 70 Ectopy: PAC(s) EKG Initial EKG: Attestation: I personally reviewed and interpreted this EKG as follows: Interpretation: Sinus Rhythm and No Acute Injury Pattern Management Discussion w/another healthcare provider: Hospitalist and Surveillance Specialist (GI Dr. Sher) Discharge Plan Dx/Rx/DC Orders Clinical Impression: Fever, Vomiting, History of biliary stent insertion Disposition Disposition: Acute Care Hospital [facility] What to do if you have Problems For any increased pain, shortness of breath, bleeding, nausea or vomiting, chestpain, or any unexpected problems, contact your Primary Care Provider. Call [facility] ([phone]) or report to the closest Emergency Room. Call 911 if necessary. 10/22/24 0502 <Electronically signed by Manuel Alvarez MD> Cosigner Signature (if applicable): CC: Dr. Salvador Del Rosario MD ~ Signed [facility] Work Phone: [phone]) 466-320106-24-2025 History and physical note [facility] Medical Records Department [address] [place] [address] H&P Exam - Hospitalist 10/22/24 0359 MR#: [id number] Acct: [id number] Name: FRAN PAREKH Rep #:[id number] : 1945 79 From: Werner Castañeda DO PCP: Dr. Salvador Del Rosario MD Status :ADM IN Location: FL3 [id number] HPI - General General Date of Admission: [...] subsequent negative biopsy who now re-presents to [facility] ER complaining of fever, nausea and vomiting. [...] is expected to extend beyond 2 midnights [facility] Medical History Carpal tunnel syndrome on both sides Cancer Wears glasses Thyroid disease Shingles Inguinal hernia Cardiology follow-up encounter History of stress test Choledocholithiasis Current use of buttermaker continuous churn 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 Elevated liver enzymes Pancreatic mass High [...] 88.6 H, Lymph % (Auto) 4.8 L, [place] % (Auto) 5.8, Eos % (Auto) 0.1, [...] Albumin 3.4, Globulin 2.8, Albumin/Globulin Ratio 1.2, Mtushx22 Rhythm Strip Rhythm Strip: Sinus Rhythm Rate: 70 Ectopy: PAC(s) Imaging Radiology Impression Chest X-Ray 10/22/24 00:48 IMPRESSION: No evidence for acute abnormality. Reading Location: [facility] Imaging Services [address] [place] [address] Abdomen/Pelvis W IV Cont ONLY MR#: [id number] Acct: [id number] Name: FRAN PAREKH Rep #: [id number] : 1945 M 79 From: Harsh Granger MD PCP: Dr. Salvador Del Rosario MD Status: REG ER Study: Abdomen/Pelvis W IV Cont ONLY Date of Exam: 10/22/24 Exam# [id number] Ordering Dr: Manuel Alvarez MD PROCEDURE: ABDOMEN/PELVIS [...] diffuse thickening of the gallbladder. Reading Location: [place] [address] CC: Dr. Manuel Alvarez MD; Dr. Salvador Del Rosario MD ~ Needle Maker: Signed Assessment & Plan Assessment/Plan (1) Cholangitis: [...] inbiliary tree. Give acetaminophen as needed for [id number] (level 1-5/10) pain or fever. Give morphine [...] 75 minutes. Charges/Coding Visit Charges Inpatient E&M: 61419 Init Hosp L3 10/22/24 0655 Cosigner Signature (if applicable): CC: Dr. Salvador Del Rosario MD; Dr. Werner Nunn DO~ Signed [facility]06-24-2025 Discharge summary [facility] Medical Records Department [address] [place] [address] Emergency Department Summary 10/22/24 MR#: [id number] Acct: [id number] Name: FRAN PAREKH Rep #:[id number] : [...] stent was placed back in. [facility] Medical History Carpal tunnel syndrome on both sides Cancer Wears glasses Thyroid disease Shingles Inguinal hernia Cardiology follow-up encounter History of stress test Choledocholithiasis Current use of usp 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 Elevated liver enzymes Pancreatic mass High [...] 88.6 H Lymph % (Auto) 4.8 L [place] % (Auto) 5.8 Eos % (Auto) 0.1 [...] No evidence for acute abnormality. Reading Location: [facility] Abdomen/Pelvis CT 10/22/24 04:02 IMPRESSION: Unchanged benign [...] Management Discussion w/another healthcare provider: Hospitalist and Surveillance Specialist (GI Friend) Discharge Plan Dx/Rx/DC Orders Clinical Impression: Fever, Vomiting, History of biliary stent insertion Disposition Disposition: [facility] What to do if you have Problems For any increased pain, shortness of breath, bleeding, nausea or vomiting, chestpain, or any unexpected problems, contact your Primary Care Provider. Call [facility] ([phone]) or report tothe closest Emergency Room. Call 911 if necessary. 10/22/24 0502 Cosigner Signature (if applicable): CC: Dr. Salvador Del Rosario MD ~ Signed [facility]06-24-2025 Radiology Diagnostic study note [facility] Imaging Services [address] [place] [address] Abdomen/Pelvis W IV Cont ONLY MR#: [id number] Acct: [id number] Name: FRAN PAREKH Rep #: [id number] : 1945 M 79 From: Gabi Granger MD PCP: Dr. Salvador Del Rosario MD Status: REG ER Study:Abdomen/Pelvis W IV Cont ONLY Date of E xam: 10/22/24 Exam# [id number] Ordering Dr: Matty Alvarez MD PROCEDURE: ABDOMEN/PELVIS [...] diffuse thickening of the gallbladder. Reading Location: [place] [address] CC: Dr. Manuel Alvarez MD; Dr. Salvador Del Rosario MD ~ Needle Maker: Signed [facility]06-24-2025 Radiology Diagnostic study note [facility] Imaging Services [address] [place] [address] [id number] Chest PA and Lateral MR#: [id number] Acct: [id number] Name: FRAN PAREKH Rep #: [id number] : 1945 M 79 From: Gabi Granger MD PCP: Dr. Salvador Del Rosario MD Status: REG ER Study:Chest PA and Lateral Date of Exam: 10/22/24 Exam# [id number] Ordering Dr: Matty Alvarez MD PROCEDURE: CHEST [...] No evidence for acute abnormality. Reading [facility] CC: Dr. Manuel Alvarez MD; Dr. Salvador Del Rosario MD ~ Needle Maker: Signed [facility]06-12-2025 Telephone encounter Note* Telephone Encounter - Malachi Castillo RN - 10/10/2024 8:39 AM EDT Pt returned call and given provider's message below with verbalized understanding. [facility]06-12-2025 Miscellaneous Notes* Telephone Encounter - Malachi Castillo RN - 10/10/2024 8:39 AM EDT Pt returned call and given provider's message below with verbalized understanding. * Telephone Encounter - Ree Ram LPN - 10/09/2024 9:16 AM EDT Images from the original note were not included. PodlogarMarilia APRN.[facility]OOK[facility] P [facility] Podlogar Pool TSH level in normal range. Continue current dose of synthroid. Marilia Orozco APRN.[facility]OOK[facility]FITE * Telephone Encounter - Ree Ram LPN [...] changes. Marilia Orozco APRN.CNP documented in this encounterTri[facility] Telephone encounter Note * Telephone Encounter - Ree Ram LPN - 10/09/2024 9:16 AM EDT Images from the original note were not included. PodlogarMarilia APRN.[facility] P Wstr [facility] Podlogar Pool TSH level in normal range. Continue current dose of synthroid. Marilia Orozco APRN.CNP [facility]06-11-2025 Telephone encounter Note* Telephone Encounter - Ree Ram LPN - 10/09/2024 9:14 AM EDT Phoned patient left message to return call and ask to speak to a nurse for results. [facility]06-11-2025 Telephone encounter Note* Telephone Encounter - Ree Ram LPN - 10/09/2024 9:12 AM EDT ----- Message from Marilia Orozco APRN.COOKER SULFITE sent at 10/08/2024 2:41 PM EDT ----- Hand and wrist xray shows possible area of healing of wrist without any acute fracture. Also shows multiple areas of hand and wrist mild to severe arthritic changes. Marilia Orozco APRN.COOKER SULFITE [facility]06-10-2025 History of Present illness Narrative* Selam Del [...] PATIENT PRESENTS WITH AN IMPLANTABLE OR ATTACHED PROCESS ENGINEERING INTERN: No RADIOLOGY DEPARTMENT: General X-ray: Exam(s) Completed: Upper Extremity X- Ray(s): Wrist, left and Hand, left PERIPHERAL IV DATA: Not applicable SIGNED BY: KAYY Mandel) October 08, 2024 10:56 AM documented in this encounterTrihealth [facility]06-10-2025 NoteHNO ID: [id number] Author: SELAM DEL RIO RT(R) Service: ? [...] PATIENT PRESENTS WITH AN IMPLANTABLE OR ATTACHED PROCESS ENGINEERING INTERN: No RADIOLOGY DEPARTMENT: General X-ray: Exam(s) Completed: Upper Extremity X-Ray(s): Wrist, left and Hand, left PERIPHERAL IV DATA: Not applicable SIGNED BY: RT Ministerio(R) October 08, 2024 10:56 [facility]06-10-2025 Instructions* Patient Instructions* Marilia Orozco APRN.CNP - 10/08/2024 9:45 AM EDT - Continue taking your prescribed Cayce for pain as directed; do not take extra Tylenol or any ibuprofen/NSAIDs while on Eliquis. - Apply ice to your left wrist for 15-20 minutes at a time as needed for pain relief. - You may use a compression wrap on your wrist if it does not overly limit your hand use. - Get your thyroid blood work today--check in at the front desk agent for labs. - Have X-rays of your left hand and wrist today--check in at the front desk agent for imaging. - We will review your X-ray results to determine if there is a break, sprain, or arthritis flare and plan any further treatment. documented in this encounterTrihealth [facility]06-10-2025 NoteHNO ID: [id number] Author: MARILIA OROZCO APRN.CNP Service: ? Author Type: Nurse Practitioner Type: Progress Notes Filed: 10/08/2024 09:54 Note Text: 10/08/2024 Patient presents with: Pain: Left wrist pain, fell about a month ago and caught himself with his hands. Recording using CarePayment software for draft documentation of the visit was discussed with the patient/authorized senior patient account representative; all questions welcomed and answered. Patient/authorized senior patient account representative agreed to proceed SUBJECTIVE: This is [...] of skin of nose Dr. Chowdary in [place] Stage 3a chronic kidney disease (HCC) Venous [...] by mouth daily at bedtime. CPAP AutoPAP [id number]. Mask per preference, tubing, filters, humidity. Lifetime Supplies. Dx: G47.33. Fax 30 day compliance report to [phone]. CPAP Please provide mask fitting. Pt with [...] season) due on 08/14/2024 (more content not included)...[facility]06-10-2025 History of Present illness Narrative* Marilia Orozco APRN.COOKER SULFITE - 10/08/2024 9:36 AM EDT 10/08/2024 Patient presents with: Pain: Left wrist pain, fell about a month ago and caught himself with his hands. Recording using CarePayment software for draft documentation of the visit was discussed with the patient/authorized senior patient account representative; all questions welcomed and answered. Patient/authorized senior patient account representative agreed to proceed SUBJECTIVE: This is [...] of skin of nose Dr. Chowdary in [place] Stage 3a chronic kidney disease (HCC) Venous [...] by mouth daily at bedtime. CPAP AutoPAP [id number]. Mask per preference, tubing, filters, humidity. Lifetime Supplies. Dx: G47.33. Fax 30 day compliance report to [phone]. CPAP Please provide mask fitting. Pt with [...] to reduce inflammation. - Patient currently on Cayce for lower back pain and arthritis; advised [...] Level: 3 - Low documented in this encounterTri[facility]06-[facility]25 History and physical note Author Alex Sher [facility] Note Date/Time October 07, 2024 11:32 am [facility] Medical Records Department [address] [place] [address] History & Physical Exam 10/07/24 1130 MR#: [id number] Acct: [id number] Name: FRAN PAREKH Rep #:[id number] : 1945 79 From: Alex Sher DO PCP: Dr. Salvador Del Rosario MD Status :[facility] Location: [place] [address] HPI - General General Date of Admission: 10/07/24 Date of Service: 10/07/24 Chief Complaint: Ampulla with low-grade dysplasia HPI Narrative FRAN PAREKH, is a 79 M who presents for repeat ERCP with ampullectomy. [facility] hospitalization 03.26.24 - 03.28.24 dizziness - consulted [...] is having ablation done with Dr Cabezas. [facility] Medical History Carpal tunnel syndrome on both sides Cancer Wears glasses Thyroid disease Shingles Inguinal hernia Cardiology follow-up encounter History of stress test Choledocholithiasis Current use of buttermaker continuous churn 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 Elevated liver enzymes Pancreatic mass High [...] A biliary stent was visible on the basketball scout film. The esophagus was successfully intubated under [...] for CMV (cytomegalovirus) is negative (performed at [facility]) - IHC for p53 is wild-type. - IHC for Ki67 is not significantly increased We will schedule him for a repeat endoscopic procedure for of his ampulla due tothe finding of low grade dysplasia. 10/07/24 1132 <Electronically signed by Alex Sher DO> Cosigner Signature (if applicable): CC: Dr. Salvador Del Rosario MD; Alex Sher DO~ Signed [facility] Work Phone: 1(521) 904-286906-09-2025 Consult note [facility] Medical Records Department [address] [place] [address] Anesthesia Postop Eval II 10/07/24 1324 MR#: [id number] Acct: [id number] Name: FRAN PAREKH Rep #:[id number] : 1945 79 From: Jeff Bennett MD PCP: Dr. Salvador Del Rosario MD Status :REG [facility] Y Race: C Location: [place] [address] Anesthesia Postop Eval I Sum Postop Eval [...] Jeff Barron Signature: Date CC: ~ Signed [facility]06-09-2025 Consult note [facility] Medical Records Department [address] [place] [address] Anesthesia Postop Eval I 10/07/24 1249 MR#: [id number] Acct: [id number] Name: FRAN PAREKH Rep #:[id number] : 1945 79 From: Tevin Vizcaino PCP: Dr. Salvador Del Rosario MD Status :REG SDC Y Race: C Location: [place] [address] Anesthesia: Postop Eval I Current Vital Signs [...] Tevin Barron Signature: Date CC: ~ Signed [facility]06-09-2025 Consult note Author Jeff Bennett [facility] Note Date/Time October 07, 2024 10:50 am [facility] Medical Records Department [address] [place] [address] Pre-Anesthesia Evaluation 10/07/24 1049 MR#: [id number] Acct: [id number] Name: FRAN PAREKH Rep #:[id number] : 1945 79 From: Jeff Bennett MD PCP: Dr. Salvador Del Rosario MD Status :REG SDC Y Race: C Location: [place] [address] ASA Classification* ASA Classification ASA Classification: 2 [...] stent placement. 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- ERCP 03/24. 10/03/24 10:22 Any Problems With [...] take am of surgery PONV PONV - bridge crane operator: PONV - bridge crane operator Female No 10/03/24 10:22 HX of [...] 09/17/24 09:36 Respiratory Assessment Respiratory Assessment - bridge crane operator: Respiratory Tract Infection Hx - bridge crane operator Hx Respiratory Tract Infection No 10/03/24 10:22 STOP Sleep Apnea STOP Sleep Apnea - bridge crane operator: STOP Sleep Apnea - bridge crane operator Hx Hypertension Yes: CONTROLLED WITH MEDS [...] 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 Use History - bridge crane operator: Tobacco Use History - bridge crane operator Tobacco Use Smoking Status Never smoker 10/03/24 10:22 Hx Tobacco Use No 10/03/24 10:22 Years Smoking Packs Smoked per Day Smoking Cessation Date was within the last 15 years Hx Smoking Cessation Date Hx Smoking Cessation Counseling Hematologic Medial History Hematologic Hx - bridge crane operator: Hematologic Medical Hx - road maker Hx of Blood Transfusion No 10/03/24 10:22 [...] confused, unrespo /Reproduction History /Reproductive History - bridge crane operator: /Reproductive Hx- bridge crane operator Hx Now Gestational Age (in weeks): [...] of stress test Choledocholithiasis Current use of buttermaker continuous churn 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 Elevated liver enzymes Pancreatic mass High [...] Jeff Bennett MD > Date _ Jeff Barron Signature: Date CC: ~ Signed [facility] Work Phone: 1(627) 359-744306-09-2025 Procedure note [facility] Medical Records Department [address] [place] [address] ERCP Report MR#: [id number] Acct: [id number] Name: FRAN PAREKH Rep #:[id number] : 1945 79 From: Alex Sher DO PCP: Dr. Salvador Del Rosario MD Status :[facility] Patient Name: Fran Parekh Procedure Date: 10/07/2024 [...] hours 21 minutes 34 seconds Findings: The basketball scout film was normal. The esophagus was successfully [...] bile duct. Procedure Code(s): --- Professional --- 34048, Endoscopic retrograde cholangiopancreatography (ERCP); with placement of endoscopic stent into biliary or pancreatic duct, including pre- and post-dilation and guide wire passage, when performed, including sphincterotomy, when performed, each stent 68931, Endoscopic retrograde cholangiopancreatography (ERCP); with ablation of tumor(s), polyp(s), or other lesion(s), including pre- and post-dilation and guide wire passage, when performed 85433, Endoscopic retrograde cholangiopancreatography (ERCP); with removal of calculi/debris from biliary/pancreatic duct(s) 62084, 59, Endoscopic retrograde cholangiopancreatography (ERCP); with sphincterotomy/papillotomy 25537, Esophagogastroduodenoscopy, flexible, transoral; with removal of tumor(s), polyp(s), or other lesion(s) by hot biopsy forceps 67202, 26, Endoscopic catheterization of the biliary ductal system, radiological supervision and interpretation CPT copyright 2021 [employer]. All rights reserved. The codes documented in this report are preliminary and upon childbirth educator review may be revised to meet current compliance requirements. Alex Sher DO 10/07/2024 12:44:24 PM This report has been signed electronically. Number of Addenda: 0 Note Initiated On: 10/07/2024 11:41 AM 10/07/24 1244 Date _ Alex Sher DO Cosigner Signature: Date (if indicated) CC: Dr. Salvador Del Rosario MD; Alex Sher DO ~ Date Dictated: 10/07/24 1141 Date Transcribed: Needle Maker: RF Signed [facility]06-09-2025 Procedure note [facility] Medical Records Department [address] [place] [address] Operative Report - CC Letter MR#: [id number] Acct: [id number] Name: FRAN PAREKH Rep #:[id number] : 1945 79 From: Alex Sher DO PCP: Dr. Salvador Del Rosario MD Status :[facility] 10/07/2024 Salvador Del Rosario Re : ERCP [...] ~ Date Dictated: 10/07/24 1141 Date Transcribed: Needle Maker: RF Signed [facility]06-09-2025 History and physical note [facility] Medical Records Department [address] [place] [address] History & Physical Exam 10/07/24 1130 MR#: [id number] Acct: [id number] Name: FRAN PAREKH Rep #:[id number] : 1945 79 From: Alex Sher DO PCP: Dr. Salvador Del Rosario MD Status :[facility] Location: [place] [address] HPI - General General Date of Admission: 10/07/24 Date of Service: 10/07/24 Chief Complaint: Ampulla with low-grade dysplasia HPI Narrative FRAN PAREKH, is a 79 M who presents for repeat ERCP with ampullectomy. [facility] hospitalization 03.26.24 - 03.28.24 dizziness - consulted [...] is having ablation done with Dr Cabezas. [facility] Medical History Carpal tunnel syndrome on both sides Cancer Wears glasses Thyroid disease Shingles Inguinal hernia Cardiology follow-up encounter History of stress test Choledocholithiasis Current use of buttermaker continuous churn 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 Elevated liver enzymes Pancreatic mass High [...] A biliary stent was visible on the basketball scout film. The esophagus was successfully intubated under [...] for CMV (cytomegalovirus) is negative (performed at [facility]) - IHC for p53 is wild-type. - IHC for Ki67 is not significantly increased We will schedule him for a repeat endoscopic procedure for of his ampulla due tothe finding of low grade dysplasia. 10/07/24 1132 Cosigner Signature (if applicable): CC: Dr. Salvador Del Rosario MD; Alex Sher, DO~ Signed [facility]06-09-2025 [facility] Consult note [facility] Medical Records Department [address] [place] [address] Pre-Anesthesia Evaluation 10/07/24 1049 MR#: [id number] Acct: [id number] Name: FRAN PAREKH Rep #:[id number] : 1945 79 From: Jeff Bennett MD PCP: Dr. Salvador Del Rosario MD Status :REG SDC Y Race: C Location: [place] [address]-1 ASA Classification* ASA Classification ASA Classification: 2 [...] stent placement. 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- ERCP 03/24. 10/03/24 10:22 Any Problems With [...] take am of surgery PONV PONV - bridge crane operator: PONV - bridge crane operator Female No 10/03/24 10:22 HX of [...] 09/17/24 09:36 Respiratory Assessment Respiratory Assessment - bridge crane operator: Respiratory Tract Infection Hx - bridge crane operator Hx Respiratory Tract Infection No 10/03/24 10:22 STOP Sleep Apnea STOP Sleep Apnea - bridge crane operator: STOP Sleep Apnea - bridge crane operator Hx Hypertension Yes: CONTROLLED WITH MEDS [...] 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 Use History - bridge crane operator: Tobacco Use History - bridge crane operator Tobacco Use Smoking Status Never smoker 10/03/24 10:22 Hx Tobacco Use No 10/03/24 10:22 Years Smoking Packs Smoked per Day Smoking Cessation Date was within the last 15 years Hx Smoking Cessation Date Hx Smoking Cessation Counseling Hematologic Medial History Hematologic Hx - bridge crane operator: Hematologic Medical Hx - road maker Hx of Blood Transfusion No 10/03/24 10:22 [...] confused, unrespo /Reproduction History /Reproductive History - bridge crane operator: /Reproductive Hx- bridge crane operator Hx Now Gestational Age (in weeks): [...] of stress test Choledocholithiasis Current use of buttermaker continuous churn 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 Elevated liver enzymes Pancreatic mass High [...] MD Cosigner Signature: Date CC: ~ Signed [facility]05-28-2025 NoteHNO ID: [id number] Author: VICTOR MANUEL BURROWS, DO Service: ? [...] by mouth daily at bedtime. CPAP AutoPAP [id number]. Mask per preference, tubing, filters, humidity. Lifetime Supplies. Dx: G47.33. Fax 30 day compliance report to [phone]. CPAP Please provide mask fitting. Pt with [...] of skin of nose Dr. Chowdary in [place] Stage 3a chronic kidney disease (HCC) Venous insufficiency PAST SURGICAL HISTORY Procedure Laterality Date ARTHRP ACETBLR/PROX FEM PROSTC AGRFT/ALGRFT Right 06/03/2019 Hip replacement, total COLONOSCOPY FLX DX W/COLLJ SPEC WHEN PFRMD 04/21/11 Repeat 10 [id number] LASER GREENLIGHT prostate, [place] NEUROPLASTY AND/TRANSPOS MEDIAN NRV CARPAL TUNNE Left 01/17/2020 Left carpal tunnel release NEUROPLASTY AND/TRANSPOS MEDIAN NRV CARPAL TUNNE Right 03/04/2020 Right carpal tunnel release RPR UMBILICAL HRNA 5 YRS/> REDUCIBLE TONSILLECTOMY PRIMARY/SECONDARY Tonsillectomy FAMILY HISTORY Problem Relation Age of Onset Heart Mother other (Myocardial infarction) Mother 81 d (more content not included)...[id number] History of Present illness Narrative* Victor Manuel [...] by mouth daily at bedtime. CPAP AutoPAP 10-04opA1T. Mask per preference, tubing, filters, humidity. Lifetime Supplies. Dx: G47.33. Fax 30 day compliance report to [phone]. CPAP Please provide mask fitting. Pt with [...] of skin of nose Dr. Chowdary in [place] Stage 3a chronic kidney disease (HCC) Venous insufficiency PAST SURGICAL HISTORY Procedure Laterality Date ARTHRP ACETBLR/PROX FEM PROSTC AGRFT/ALGRFT Right 06/03/2019 Hip replacement, total COLONOSCOPY FLX DX W/COLLJ SPEC WHEN PFRMD 04/21/11 Repeat 10 [id number] LASER GREENLIGHT prostate, [place] NEUROPLASTY &/TRANSPOS MEDIAN [...] uU/mL HIV No results found for: HIVSCN, [id number]] Hepatitis B Surface Antigen No results found [...] 25, 2024 8:33 AM documented in this encounterTri[facility] Evaluation note* Diagnosis Onset Date Resolution Status [...] 8:18am Choledocholithiasis acute Augus t 2024 9:58am [facility] Work Phone: 1(333) 423-612405-03-2025 NoteHNO ID: [id number] Author: COLE CAMPOS MD Service: ? Author Type: Physician Type: Progress Notes Filed: 08/31/2024 11:11 Note Text: Express Care Triage Note: [facility] with complaint of abdominal pain for the last day. He is also experiencing current sciatic pain and taking Cayce. He has been unable to take pain [...] ED for evaluation instead. He declines EMS transfer.[facility]05-03-2025 History of Present illness Narrative* Cole Campos MD - 08/31/2024 11:07 AM EDT [facility] Triage Note: [facility] with complaint of abdominal pain for the last day. He is also experiencing current sciatic pain and taking Cayce. He has been unable to take pain medicine today because of upset stomach and wants to avoid further aggravating abdominal pain. He is concerned he may have constipation but also has history of diverticulitis. He is in apparent discomfort in the waiting room. He was offered the opportunity to have initial evaluation here [facility] with likely referral where imaging is available. He chooses to go to the ED for evaluation instead. He declines EMS transfer. documented in this encounterTrihealth [facility]05-01-[facility]25 Consult note Author Jeff Bennett [facility] Note Date/Time October 07, 2024 1:25p [facility] Medical Records Department [address] [place] [address] Anesthesia Postop Eval II 10/07/24 1324 MR#: [id number] Acct: [id number] Name: FRAN PAREKH Rep #:[id number] : 1945 79 From: Jeff Bennett MD PCP: Dr. Salvador Del Rosario MD Status :[facility] Y Race: C Location: [place] [address]- Anesthesia Postop Eval I Sum Postop Eval [...] MD Cosigner Signature: Date CC: ~ Signed [facility] Work Phone: [phone]) 934-165004-29-2025 Telephone encounter Note* Telephone Encounter - Sissy Campbell LPN - 08/27/2024 12:28 PM EDT Completed form faxed back as requested. Sissy Campbell LPN [facility]04-29-2025 Miscellaneous Notes* Telephone Encounter - Sissy Campbell [...] 08/27/2024 11:57 AM EDT Received form from [facility] regarding upcoming procedure and request to stop coumadin. Form forwarded to provider's desk for review. Sissy Campbell LPN documented in this encounterTrihealth Good Samaritan Hospital04-29-2025 Telephone encounter Note * Telephone Encounter - Agnes Del Rosario MD - 08/27/2024 12:11 PM EDT He is on Eliquis. Ok to stop 2 days prior to procedure. Form completed. [facility]04-29-2025 Telephone encounter Note* Telephone Encounter - Sissy Campbell LPN - 08/27/2024 11:57 AM EDT Received form from [facility] [place] regarding upcoming procedure and request to stop coumadin. Form forwarded to provider's desk for review. Sissy Campbell LPN [facility]04-18-2025 Telephone encounter Note* Telephone Encounter - Marilia Orozco APRN.CNP - 08/16/2024 1:24 PM EDT Order for TSH placed. Marilia Orozco APRN.CNP [facility]04-18-2025 Miscellaneous Notes* Telephone Encounter - Marilia Orozco [...] 6.0%. Marilia Orozco APRN.RUBÉN documented in this encounterTrihealth Good Samaritan Hospital04-18-2025 Telephone encounter Note * Telephone Encounter - Katlyn Melissa RN - 08/16/2024 1:13 PM EDT Pt called and is notified of providers results and instructions. Pt voices understanding, after I notified that she wanted him to start taking 2 pills every Monday and one pill every other day. Please place lab orders for recheck on Thyroid. Katlyn Melissa, RN [facility]04-18-2025 Telephone encounter Note* Telephone Encounter - Eunice Bruce LPN - 08/16/2024 10:20 AM EDT Telephone call placed to patient. Message left to call office back for update. Eunice Bruce LPN [facility]04-18-2025 Telephone encounter Note* Telephone Encounter - [...] is stable at 6.0%. Marilia Orozco APRN.RUBÉN [facility]04-15-2025 History of Present illness Narrative* Marilia [...] gi upset: Yes 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 Sher, cold patcher, for hx of choledocholithiasis. Recent ERCP on [...] of skin of nose Dr. Chowdary in [place] Stage 3a chronic kidney disease (HCC) Venous [...] not taking: Reported on 12/19/2023) CPAP AutoPAP [id number]. Mask per preference, tubing, filters, humidity. Lif[employer] Supplies. Dx: G47.33. Fax 30 day compliance report to [phone]. CPAP Please provide mask fitting. Pt with [...] Abs Lymph 1.00 - 4.00 k/uL 2.23 [place]% % 10.0 Abs [place] <0.87 k/uL 1.03 (H) Eosin% % 1.9 [...] -follow-up with pulmonology as recommended Marilia Orozco APRN.COOKER SULFITE Prescription instructions reviewed with patient as applicable. [...] Level: 4 - Moderate documented in this encounterTrihealth Good Samaritan Hospital04-15-2025 NoteHNO ID: [id number] Author: MARILIA OROZCO APRN.CNP Service: ? Author [...] gi upset: Yes 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 Sher, cold patcher, for hx of choledocholithiasis. Recent ERCP on [...] of skin of nose Dr. Chowdary in [place] Stage 3a chronic kidney disease (HCC) Venous [...] not taking: Reported on 12/19/2023) CPAP AutoPAP [id number]. Mask per preference, tubing, filters, humidity. Lifetime Supplies. Dx: G47.33. Fax 30 day compliance report to [phone]. CPAP Please provide mask fitting. Pt with [...] wheezes, rhonchi or r (more content not included)...[facility]04-14-2025 Telephone encounter Note* Telephone Encounter - [...] Bowen RN August 12, 2024 11:34 AM [facility]04-14-2025 Miscellaneous Notes* Telephone Encounter - Carli Bowen [...] 12, 2024 11:34 AM documented in this encounterTrihealth Good Samaritan [facility]04-09-2025 NoteHNO ID: [id number] Author: MORELIA MUNGUIA MA Service: ? Author Type: Perioperative Manager Type: Progress Notes Filed: 08/07/2024 14:12 Note Text: POPULATION HEALTH NAVIGATION OUTREACH Action/FYI Patient returned call and patient declined scheduling. Reason for Outreach Returned Call/MyChart Patient Contacted: Spoke to patient/parent/or legal guardian Patient identified by name and date of : Yes Returned call/MyChart actions taken: Patient declined: Doesn't feel it's necessary Navigation Signature: Morelia Munguia MA August 07, 2024 2:11 [facility] History of Present illness Narrative* Morelia [...] 07, 2024 12:59 PM documented in this encounterTrihealth Good Samaritan [facility]04-09-2025 NoteHNO ID: [id number] Author: MORELIA MUNGUIA MA Service: ? Author Type: Perioperative Manager Type: Progress Notes Filed: 08/07/2024 13:00 Note [...] or unnecessary to reach patient: Left message tracxhart message sent HCC related Navigation Signature: Morelia Munguia MA August 07, 2024 12:59 [facility]04-09-2025 NotePatient Outreach (NETNAV) FRAN PAREKH ([id number]) 1945 M Date Time Provider Department 08/07/24 [...] or unnecessary to reach patient: Left message tracxhart message sent HCC related Navigation Signature: Morelia [...] Visit: Population Health Navigation Outreach [3910] Cmt: [place]/Workbench/ACO Prescriptions as of 08/07/2024 - lisinopril (ZESTRIL) [...] hour before dental procedure. - CPAP AutoPAP [id number]. Mask per preference, tubing, filters, humidity. Lifetime Supplies. Dx: G47.33. Fax 30 day compliance report to [phone]. - CPAP Please provide mask fitting. Pt [...] 03/25/2009 Open fracture of distal phalangeal tuft [QNL238*08/31/2011 05/09/2014 Internal derangement of right knee [M23.91] [...] chronic kidney disease [N18 (more content not included)...[facility]03-28-2025 Telephone encounter Note* Telephone Encounter - Bob Powell MD - 07/26/2024 11:46 PM EDT The following approved medication requests have been transmitted electronically. Requested Prescriptions Signed Prescriptions Disp Refills lisinopril (ZESTRIL) 40 mg tablet 90 tablet 1 Sig: Take 1 tablet by mouth once daily. Authorizing Provider: BOB POWELL MD [facility]03-28-2025 Miscellaneous Notes* Telephone Encounter - Bob Powell [...] 26, 2024 4:43 PM documented in this encounterTrihealth Good Sam[facility]03-28-2025 Telephone encounter Note * Telephone Encounter - [...] Castillo RN July 26, 2024 4:43 PM [facility]03-25-2025 Evaluation note* Diagnosis Onset Date Resolution Status [...] 222024 4:38am Pancreatic cyst inactive September 4:38am [facility] Work Phone: 1(439) 249-292103-06-2025 Consult note Author Abundio Merrill [facility] Note Date/Time July 04, 2024 9:43 am [facility] Medical Records Department [address] [place] [address] Pre-Anesthesia Evaluation 07/04/24 0921 MR#: [id number] Acct: [id number] Name: FRAN PAREKH Rep #:[id number] : 1945 78 From: Abundio Merrill MD PCP: Dr. 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- ERCP 03/24. 07/02/24 14:53 Any Problems With [...] take am of surgery PONV PONV - bridge crane operator: PONV - bridge crane operator Female No 07/02/24 14:53 HX of [...] 07/04/24 08:49 Respiratory Assessment Respiratory Assessment - bridge crane operator: Respiratory Tract Infection Hx - bridge crane operator Hx Respiratory Tract Infection No 07/02/24 14:53 STOP Sleep Apnea STOP Sleep Apnea - bridge crane operator: STOP Sleep Apnea - bridge crane operator Hx Hypertension Yes: CONTROLLED WITH MEDS [...] 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 Use History - bridge crane operator: Tobacco Use History - bridge crane operator Tobacco Use Smoking Status Never smoker 07/02/24 14:53 Hx Tobacco Use No 07/02/24 14:53 Years Smoking Packs Smoked per Day Smoking Cessation Date was within the last 15 years Hx Smoking Cessation Date Hx Smoking Cessation Counseling Hematologic Medial History Hematologic Hx - bridge crane 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 Abundio Merrill MD) Carpal tunnel syndrome on both sides Cancer Wears glasses Thyroid disease Shingles Inguinal hernia Cardiology follow-up encounter History of stress test Choledocholithiasis Current use of usp 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 Elevated liver enzymes Pancreatic mass High [...] MD Cosigner Signature: Date CC: ~ Signed [facility] Work Phone: 1(119) 871-101303-06-2025 Radiology Diagnostic study note [facility] Imaging Services [address] [place] [address] ERCP Biliary/Pancreas MR#: [id number] Acct: [id number] Name: FRAN PAREKHEY Rep #: [id number] : 1945 M 78 From: Jodie Jauregui MD PCP: Dr. Salvador Del Rosario MD Status: [facility] Study:ERCP Biliary/Pancreas Date of Exam: 07/04/24 Exam# [id number] Ordering Dr: Tarah Sher DO PROCEDURE: ERCP [...] IMPRESSION: Unremarkable endoscopic retrograde cholangiopancreatography. Reading Location: [place] [address] CC: Dr. Salvador Del Rosario MD; Alex Sher DO ~ Needle Maker: Signed [facility]03-06-2025 Procedure note [facility] Medical Records Department [address] [place] [address] ERCP Report MR#: [id number] Acct: [id number] Name: FRAN PAREKH Rep #:[id number] : 1945 78 From: Alex Sher DO PCP: Dr. Salvador Del Rosario MD Status :[facility] Patient Name: Fran Parekh Procedure Date: 07/04/2024 [...] A biliary stent was visible on the basketball scout film. The esophagus was successfully intubated under [...] biliary tree. Procedure Code(s): --- Professional --- 10135, Endoscopic retrograde cholangiopancreatography (ERCP); with removal of foreign body(s) or stent(s) from biliary/pancreatic duct(s) 35692, Endoscopic retrograde cholangiopancreatography (ERCP); with removal of calculi/debris from biliary/pancreatic duct(s) 16122, Endoscopic retrograde cholangiopancreatography (ERCP); with sphincterotomy/papillotomy 36265, Esophagogastroduodenoscopy, flexible, transoral; with biopsy, single or multiple 51574, 26, Endoscopic catheterization of the biliary ductal system, radiological supervision and interpretation CPT copyright 2021 [employer]. All rights reserved. The codes documented in this report are preliminary and upon childbirth educator review may be revised to meet current compliance requirements. Alex Sher DO 07/04/2024 11:05:54 AM This report has been signed electronically. Number of Addenda: 0 Note Initiated On: 07/04/2024 10:18 AM 07/04/24 1105 Date _ Alex Sher DO Cosigner Signature: Date (if indicated) CC: Dr. Salvador Del Rosario MD; Alex Sher DO ~ Date Dictated: 07/04/24 1018 Date Transcribed: Needle Maker: RF Signed [facility]03-06-2025 Procedure note [facility] Medical Records Department [address] [place] [address] Operative Report - CC Letter MR#: [id number] Acct: [id number] Name: FRAN PAREKH Rep #:[id number] : 1945 78 From: Alex Sher DO PCP: Dr. Salvador Del Rosario MD Status :[facility] 07/04/2024 Salvador Del Rosario Re : ERCP [...] ~ Date Dictated: 07/04/24 1018 Date Transcribed: Needle Maker: RF Signed [facility]03-06-2025 Consult note [facility] Medical Records Department [address] [place] [address] Anesthesia Postop Eval I 07/04/24 1059 MR#: [id number] Acct: [id number] Name: FRAN PAREKH Rep #:[id number] : 1945 78 From: Tevin Vizcaino PCP: Dr. Salvador Del Rosario MD Status :[facility] Y Race: C Location: [place] [address] Anesthesia: Postop Eval I Current Vital Signs [...] Tevin Barron Signature: Date CC: ~ Signed [facility]03-06-2025 Evaluation note* Diagnosis Onset Date Resolution Status Admit Date 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 8:24am Choledocholithiasis acute July 04, 2024 8:24am Ampulla of Vater mass acute Jun 8:21am Choledocholithiasis acute July 23, 2024 8:21am Pancreatic cyst acute June 8:21am Pancreatitis acute July 23, 2024 8:21am [facility] Work Phone: 1(884) 102-390503-06-2025 Evaluation note* Diagnosis Onset Date Resolution Status [...] Sep 10:24am Biliary stricture acute September 10:24am [facility] Work Phone: 1(959) 450-814003-06-2025 Evaluation note* Diagnosis Onset Date Resolution Status [...] ml/min chron ic October 22, 2024 4:38am [facility] Work Phone: 1([phone]) [phone] History and physical note [facility] Medical Records Department [address] [place] [address] History & Physical Exam 07/04/24 0957 MR#: [id number] Acct: [id number] Name: FRAN PAREKH Rep #:[id number] : 1945 78 From: Alex Sher DO PCP: Dr. Salvador Del Rosario MD Status :[facility] Location: [address] HPI - General General Date of Admission: 07/04/24 Date of Service: 07/04/24 Chief Complaint: Biliary stent removal HPI Narrative FRAN PAREKH, is a 78 M who presents for ERCP with stent removal. [facility] hospitalization 03.26.24 - 03.28.24 dizziness - consulted [...] know when his stent will be removed. [facility] Medical History Carpal tunnel syndrome on both sides Cancer Wears glasses Thyroid disease Shingles Inguinal hernia Cardiology follow-up encounter History of stress test Choledocholithiasis Current use of buttermaker continuous churn 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 Elevated liver enzymes Pancreatic mass High [...] Del Rosario MD; Alex Sher, DO~ Signed [facility]03-06-2025 [facility]03-06-2025 Consult note [facility] Medical Records Department [address] [place] [address] Pre-Anesthesia Evaluation 07/04/24 0921 MR#: [id number] Acct: [id number] Name: FRAN PAREKH Rep #:[id number] : 1945 78 From: Abundio Merrill MD PCP: Dr. 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- ERCP 03/24. 07/02/24 14:53 Any Problems With [...] take am of surgery PONV PONV - bridge crane operator: PONV - bridge crane operator Female No 07/02/24 14:53 HX of [...] 07/04/24 08:49 Respiratory Assessment Respiratory Assessment - bridge crane operator: Respiratory Tract Infection Hx - bridge crane operator Hx Respiratory Tract Infection No 07/02/24 14:53 STOP Sleep Apnea STOP Sleep Apnea - bridge crane operator: STOP Sleep Apnea - bridge crane operator Hx Hypertension Yes: CONTROLLED WITH MEDS [...] 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 Use History - bridge crane operator: Tobacco Use History - bridge crane operator Tobacco Use Smoking Status Never smoker 07/02/24 14:53 Hx Tobacco Use No 07/02/24 14:53 Years Smoking Packs Smoked per Day Smoking Cessation Date was within the last 15 years Hx Smoking Cessation Date Hx Smoking Cessation Counseling Hematologic Medial History Hematologic Hx - bridge 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 Abundio Merrill MD) Carpal tunnel syndrome on both sides Cancer Wears glasses Thyroid disease Shingles Inguinal hernia Cardiology follow-up encounter History of stress test Choledocholithiasis Current use of buttermaker continuous churn 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 Elevated liver enzymes Pancreatic mass High [...] MD Cosigner Signature: Date CC: ~ Signed [facility]02-28-2025 Telephone encounter Note* Telephone Encounter - Home Horton PSS - 06/28/2024 11:06 AM EST Patient rescheduled on 10/21/2024. [facility]02-28-2025 Miscellaneous Notes* Telephone Encounter - Home Horton PSS - 06/28/2024 11:06 AM EST Patient rescheduled on 10/21/2024. * Telephone Encounter - Home Horton PSS - 06/24/2024 2:14 PM EST Called patient to reschedule 10/22/[address] Burrows, 1st attempt, left . Please offer virtual appointment at [facility] or [facility]. documented in this encounterTrihealth [facility]02-24-2025 Telephone encounter Note * Telephone Encounter - Home Horton PSS - 06/24/2024 2:14 PM EST Called patient to reschedule 10/22/[address] Burrows, 1st attempt, left . Please offer virtual appointment at [facility] or [facility]. [facility]01-22-2025 Telephone encounter Note* Telephone Encounter - Kulwinder Whelan RN - 05/22/2024 6:17 PM EST Levothyroxine taken care of by PCP. PCP requests that coding quality coordinator Dr. Burrows continue to prescribe pt's Eliquis. Pt would like a 90 day supply sent in to [facility]. Order pended for Eliquis for 90 day supply and routed to Dr. Burrows. [facility]01-22-2025 Miscellaneous Notes* Telephone Encounter - Kulwinder Whelan RN - 05/22/2024 6:17 PM EST Levothyroxine taken care of by PCP. PCP requests that coding quality coordinator Dr. Burrows continue to prescribe pt's Eliquis. Pt would like a 90 day supply sent in to [facility]. Order pended for Eliquis for 90 [...] on Eliquis for hx of PE. A coding quality coordinator Dr. Victor Manuel Burrows, put pt on this when he was hospitalized for the PEs. Pt does follow up with him-has virtual visit in September. Pt is aware that is the prescribing provider but pt was wondering if Dr. Del Rosario would take over prescribing it? If Dr. Del Rosario feels pt should continue to get medication from coding quality coordinator, please call pt back and let him [...] 21, 2024 9:14 AM documented in this encounterTrihealth Good [facility]01-22-2025 Telephone encounter Note * Telephone Encounter - Leonila Winslow LPN - 05/22/2024 11:35 AM EST .Detailed VM left on pt's identified voicemail of information below. Leonila Winslow LPN [facility]01-21-2025 Telephone encounter Note* Telephone Encounter - Agnes Del Rosario MD - 05/21/2024 12:40 PM EST Rx sent for synthroid. Needs to get Eliquis from prescribing physician. [facility]01-21-2025 Telephone encounter Note* Telephone Encounter - Kulwinder Whelan RN - 05/21/2024 9:14 AM EST Pt is on Eliquis for hx of PE. A coding quality coordinator Dr. Victor Manuel Burrows, put pt on this when he was hospitalized for the PEs. Pt does follow up with him-has virtual visit in September. Pt is aware that is the prescribing provider but pt was wondering if Dr. Del Rosario would take over prescribing it? If Dr. Del Rosario feels pt should continue to get medication from coding quality coordinator, please call pt back and let him [...] Whelan RN May 21, 2024 9:14 AM [facility]12-13-2024 Telephone encounter Note* Telephone Encounter [...] Monroy RN April 12, 2024 2:25 PM [facility]12-13-2024 Miscellaneous Notes* Telephone Encounter - [...] 12, 2024 2:25 PM documented in this encounterTrihealth Good Sam[facility]12-09-2024 NoteHNO ID: [id number] Author: MITCHEL WALTERS RN Service: ? Author Type: Registered Nurse Type: Progress Notes Filed: 04/08/2024 14:15 Note Text: Transitional Care Management (TCM) Follow-Up Note PCP Update / Actionable Items N/A - No specialty updates needed Patient Source: Dws-pd-Sycfeda (OON) Discharge Outreach Summary: Pt states eating and drinking well. Has f/u with Dr. Sher 04/16 Completed antibiotic therapy. States anxious to discuss stent placement, what happened with testing at [facility]. Patient discharged from [facility] Discharge date: 03/28/24 Admitted for: Abdominal [...] Mitchel Walters RN April 08, 2024 2:05 [facility]12-09-2024 History of Present illness Narrative* Mitchel Walters RN - 04/08/2024 2:04 PM EST Transitional Care Management (TCM) Follow-Up Note PCP Update / Actionable Items N/A - No specialty updates needed Patient Source: Poz-id-Fdgskeq (OON) Discharge Outreach Summary: Pt states eating and drinking well. Has f/u with Dr. Sher 04/16 Completed antibiotic therapy. States anxious to discuss stent placement, what happened with testing at [facility]. Patient discharged from [facility] Discharge date: 03/28/24 Admitted for: Abdominal [...] 08, 2024 2:05 PM documented in this encounterTrihealth Good Sam[facility]12-09-2024 NotePatient Outreach (AMBCMG) IGLESIAFRAN ([id number]) 1945 Date Time Provider Department 04/08/24 MITCHEL WALTERS [facility] During your visit today, we recorded the following information about you: Mitchel Walters RN 04/08/2024 2:15 PM Signed Transitional Care Management (TCM) Follow-Up Note PCP Update / Actionable Items N/A - No specialty updates needed Patient Source: Sdk-pv-Nqqbxti (OON) Discharge Outreach Summary: Pt states eating and drinking well. Has f/u with . Friend 04/16 Completed antibiotic therapy. States anxious to discuss stent placement, what happened with testing at [facility]. Patient discharged from [facility] Discharge date: 03/28/24 Admitted for: Abdominal [...] hour before dental procedure. - CPAP AutoPAP [id number]. Mask per preference, tubing, filters, humidity. Lif[employer] Supplies. Dx: G47.33. Fax 30 day compliance report to [phone]. - CPAP Please provide mask fitting. Pt [...] 03/25/2009 Open fracture of distal phalangeal tuft [KAV910*08/31/2011 05/09/2014 Internal derangement of right knee [M23.91] 05/07/2012 Intention tremor [G25.2] 05/07/2012 Benign prostatic hyperplasia with lower urinary*01/15/2013 Nocturia [R35.1] 01/15/2013 Right flank pain [R10.9] 02/04/2013 05/09/2014 Right kidney stone [N20.0] 02/04/2013 05/09/2014 Right renal mass [N28.89] (more content not included)...[facility]12-02-2024 NoteHNO ID: [id number] Author: MARILIA OROZCO APRN.COOKER SULFITE Service: ? Author Type: Nurse Practitioner Type: Progress Notes Filed: 04/01/2024 14:48 Note Text: 04/01/2024 Patient presents with: Hospital F/U: [facility] 03/26-03/28 for pancreatitis SUBJECTIVE: This is a 78 year old that is here today for Above Complaints. HOSPITAL/ER FOLLOW UP: Reason for visit: abdominal pain, nausea, vomiting and dizziness Which facility: [facility] Date of visit: 03/26/2024-03/28/2024 Diagnosis: choledocholithiasis Testing [...] Home Visit Referral Source of Stratification: TCM [facility] Hospital Admission Status: Discharged Readmission Risk Score: n/a Patient's zip code: [address] Is zip code within program service area: No Patient meets program referral criteria: No Patient does not qualify for High Risk TCM Home Visit program due to: Patient's zip code is not located within program service area Readmission Risk Score does not meet criteria Disposition: Patient does not qualify for HRTIC, will provide TCM outreach follow-up for 30-days Patient Source: Ygj-sv-Vvmtymj (OON) Discharge Outreach Summary: Pt reports he is feeling well, caught up on sleep last night. States eating and drinking OK . No additional episodes of nausea, vomiting or abdominal pain , fevers, chills since dc. Started Omnicef as rx. Pt reports LVM for f/u with Dr. Nikky DSOUZA and has f/u with PCP office 04/01 Patient discharged from [facility] Discharge date: 03/28/24 Admitted for: Abdominal pain Readmission Risk: n/a Value-Based Contract: ACO Contact: Contact made with patient: Yes Hi, my name is Mitchel Walters RN and I am calling from the [facility] on behalf of your Primary Care Provider, [...] like to speak with a social work steamboat captain to help give you support for any [...] I will send your request to a manufacturing scheduler who will contact and assist you with [...] needed upon discharge. Targets (more content not included)...[facility]12-02-2024 History of Present illness Narrative* Marilia Orozco APRN.COOKER SULFITE - 04/01/2024 11:49 AM EST 04/01/2024 Patient presents with: Hospital F/U: [facility] 03/26-03/28 for pancreatitis SUBJECTIVE: This is a 78 year old that is here today for Above Complaints. HOSPITAL/ER FOLLOW UP: Reason for visit: abdominal pain, nausea, vomiting and dizziness Which facility: [facility] Date of visit: 03/26/2024-03/28/2024 Diagnosis: choledocholithiasis Testing [...] Readmission Risk Score: n/a Patient's zip code: [address] Is zip code within program service area: No Patient meets program referral criteria: No Patient does not qualify for High Risk TCM Home Visit program due to: Patient's zip code is not located within program service area Readmission Risk Score does not meet criteria Disposition: Patient does not qualify for HRTIC, will provide TCM outreach follow-up for 30-days Patient Source: Mof-lx-Meiqnky (OON) Discharge Outreach Summary: Pt reports he is feeling well, caught up on sleep last night. States eating and drinking OK . No additional episodes of nausea, vomiting or abdominal pain , fevers, chills since dc. Started Omnicef as rx. Pt reports LVM for f/u with Dr. Nikky DSOUZA and has f/u with PCP office 04/01 Patient discharged from [facility] Discharge date: 03/28/24 Admitted for: Abdominal pain Readmission Risk: n/a Value-Based Contract: ACO Contact: Contact made with patient: Yes Hi, my name is Mitchel Walters RN and I am calling from the [facility] on behalf of your Primary Care Provider, [...] like to speak with a social work steamboat captain to help give you support for any [...] I will send your request to a manufacturing scheduler who will contact and assist you with [...] of skin of nose Dr. Chowdary in [place] Stage 3a chronic kidney disease (HCC) Venous [...] not taking: Reported on 12/19/2023) CPAP AutoPAP [id number]. Mask per preference, tubing, filters, humidity. Lifetime Supplies. Dx: G47.33. Fax 30 day compliance report to [phone]. CPAP Please provide mask fitting. Pt with [...] 15 minutes at a time Marilia Orozco APRN.COOKER SULFITE Prescription instructions reviewed with patient as applicable. Patient advised if symptoms do not improve or if symptoms worsen sooner, to contact their primary care physician. Potential red flag symptoms discussed with the patient. Reviewed appropriate action plan to take if red flag symptoms occur. Patient agreeable to treatment plan. documented in this encounterTri[facility]11-29-[facility]24 NoteHNO ID: [id number] Author: MITCHEL WALTERS RN Service: ? Author Type: Registered Nurse Type: Progress Notes Filed: 03/29/2024 10:35 Note Text: Transition Care Management (TCM) Initial Outreach PCP Update / Actionable Items HRTIC TCM Home Visit Referral Source of Stratification: TCM [facility] Hospital Admission Status: Discharged Readmission Risk Score: n/a Patient's zip code: [address] Is zip code within program service area: No Patient meets program referral criteria: No Patient does not qualify for High Risk TCM Home Visit program due to: Patient's zip code is not located within program service area Readmission Risk Score does not meet criteria Disposition: Patient does not qualify for HRTIC, will provide TCM outreach follow-up for 30-days Patient Source: Hnu-yg-Rdaqkhz (OON) Discharge Outreach Summary: Pt reports he is feeling well, caught up on sleep last night. States eating and drinking OK . No additional episodes of nausea, vomiting or abdominal pain , fevers, chills since dc. Started Omnicef as rx. Pt reports LVM for f/u with Dr. Nikky DSOUZA and has f/u with PCP office 04/01 Patient discharged from [facility] Discharge date: 03/28/24 Admitted for: Abdominal pain Readmission Risk: n/a Value-Based Contract: ACO Contact: Contact made with patient: Yes Hi, my name is Mitchel Walters RN and I am calling from the [facility] on behalf of your Primary Care Provider, [...] like to speak with a social work steamboat captain to help give you support for any [...] I will send your request to a manufacturing scheduler who will contact and assist you with [...] Mitchel Walters RN March 29, 2024 10:22 [facility]11-29-2024 History of Present illness Narrative* Mitchel Walters RN - 03/29/2024 10:17 AM EST Transition Care Management (TCM) Initial Outreach PCP Update / Actionable Items HRTIC TCM Home Visit Referral Source of Stratification: TCM [facility] Hospital Admission Status: Discharged Readmission Risk Score: n/a Patient's zip code: [address] Is zip code within program service area: No Patient meets program referral criteria: No Patient does not qualify for High Risk TCM Home Visit program due to: Patient's zip code is not located within program service area Readmission Risk Score does not meet criteria Disposition: Patient does not qualify for HRTIC, will provide TCM outreach follow-up for 30-days Patient Source: Ttt-go-Pvxhzes (OON) Discharge Outreach Summary: Pt reports he is feeling well, caught up on sleep last night. States eating and drinking OK . No additional episodes of nausea, vomiting or abdominal pain , fevers, chills since dc. Started Omnicef as rx. Pt reports LVM for f/u with Dr. Nikky DSOUZA and has f/u with PCP office 04/01 Patient discharged from [facility] Discharge date: 03/28/24 Admitted for: Abdominal pain Readmission Risk: n/a Value-Based Contract: ACO Contact: Contact made with patient: Yes Hi, my name is Mitchel Walters RN and I am calling from the [facility] on behalf of your Primary Care Provider, [...] like to speak with a social work steamboat captain to help give you support for any [...] I will send your request to a manufacturing scheduler who will contact and assist you with [...] 29, 2024 10:22 AM documented in this encounterTrihealth [facility]11-29-2024 NotePatient Outreach ([facility]) FRAN PRAEKH ([id number]) 1945 M Date Time Provider Department 03/29/24 MITCHEL WALTERS During your visit today, we recorded the following information about you: Mitchel Walters RN 03/29/2024 10:35 AM Signed Transition Care Management (TCM) Initial Outreach PCP Update / Actionable Items HRTIC TCM Home Visit Referral Source of Stratification: [facility] Hospital Admission Status: Discharged Readmission Risk Score: n/a Patient's zip code: [address] Is zip code within program service area: No Patient meets program referral criteria: No Patient does not qualify for High Risk TCM Home Visit program due to: Patient's zip code is not located within program service area Readmission Risk Score does not meet criteria Disposition: Patient does not qualify for HRTIC, will provide TCM outreach follow-up for 30-days Patient Source: Ysu-il-Qbeuapp (OON) Discharge Outreach Summary: Pt reports he is feeling well, caught up on sleep last night. States eating and drinking OK . No additional episodes of nausea, vomiting or abdominal pain , fevers, chills since dc. Started Omnicef as rx. Pt reports LVM for f/u with Dr. Nikky DSOUZA and has f/u with PCP office 04/01 Patient discharged from [facility] Discharge date: 03/28/24 Admitted for: Abdominal pain Readmission Risk: n/a Value-Based Contract: ACO Contact: Contact made with patient: Yes Hi, my name is Mitchel Walters RN and I am calling from the [facility] on behalf of your Primary Care Provider, [...] like to speak with a social work steamboat captain to help give you support for any [...] I will send your request to a manufacturing scheduler who will contact and assist you with [...] Itching Date Reviewed: 02/14/2024 Reviewed by: Eunice Brcue LPN - Fully Assessed Reason for Visit: Transition Of Care [4074] Cmt: TCM / 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 Work Phone: 1(880) 980-216111-18-2024 Telephone encounter Note* Telephone Encounter - Malachi [...] Castillo RN March 18, 2024 8:04 AM [facility]11-18-2024 Miscellaneous Notes* Telephone Encounter - Malachi Castillo [...] 18, 2024 8:04 AM documented in this encounterTrihealth Good Sam[facility]10-25-2024 History of Present illness Narrative* Karen Wing, [...] PATIENT PRESENTS WITH AN IMPLANTABLE OR ATTACHED PROCESS ENGINEERING INTERN: No RADIOLOGY DEPARTMENT: General X-ray: Exam(s) Completed: Spine X-Ray(s): Cervical AP / LAT Upper Extremity X-Ray(s): Shoulder, AP / TRUE AP left PERIPHERAL IV DATA: Not applicable SIGNED BY: RT Robby(R) February 23, 2024 10:15 AM documented in this encounterTrihealth Good Samar[facility]10-25-2024 NoteHNO ID: [id number] Author: KAREN WING RT(R) Service: Radiology Author [...] PATIENT PRESENTS WITH AN IMPLANTABLE OR ATTACHED PROCESS ENGINEERING INTERN: No RADIOLOGY DEPARTMENT: General X-ray: Exam(s) Completed: Spine X-Ray(s): Cervical AP / LAT Upper Extremity X-Ray(s): Shoulder, AP / TRUE AP left PERIPHERAL IV DATA: Not applicable SIGNED BY: KAYY Bustamante) February 23, 2024 10:15 [facility]10-23-2024 Telephone encounter Note* Telephone Encounter - Carli [...] Bowen RN February 21, 2024 8:32 AM [facility]10-23-2024 Miscellaneous Notes* Telephone Encounter - Carli Bowen [...] 21, 2024 8:32 AM documented in this encounterTrihealth Good Sam[facility]10-16-2024 NoteHNO ID: [id number] Author: MARILIA OROZCO APRN.COOKER SULFITE Service: ? Author Type: Nurse Practitioner Type: [...] flexion ALLEVIATING FEATURES: tylenol Hurt it playing [employer] years ago. Denies past surgeries,extremity numbness, tingling, [...] of skin of nose Dr. Chowdary in [place] Stage 3a chronic kidney disease (HCC) Venous [...] not taking: Reported on 12/19/2023) CPAP AutoPAP [id number]. Mask per preference, tubing, filters, humidity. Lifetime Supplies. Dx: G47.33. Fax 30 day compliance report to [phone]. CPAP Please provide mask fitting. Pt with [...] Depression Screening Never done (more content not included)...[facility]10-16-[facility]24 History of Present illness Narrative* PodlogarMarilia APRN.COOKER SULFITE - 02/14/2024 11:34 AM EDT 02/14/2024 Patient presents with: Follow Up: Right leg swelling Pain: Left shoulder/upper back into neck pain SUBJECTIVE: This is a 78 year old that is here today for Above Complaints.. ONSET: Monday afternoon after lifting boxes LOCATION: left shoulder/back/neck DURATION: constant CHARACTERISTICS: oliver AGGRAVATING FEATURES: neck flexion ALLEVIATING FEATURES: tylenol Hurt it playing [employer] years ago. Denies past surgeries,extremity numbness, tingling, weakness, swelling or redness Right leg still with swelling. Wants to make sure he does not have any cellulitis. 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 Chowdary in [place] Stage 3a chronic kidney disease (HCC) Venous [...] not taking: Reported on 12/19/2023) CPAP AutoPAP [id number]. Mask per preference, tubing, filters, humidity. Lifetime Supplies. Dx: G47.33. Fax 30 day compliance report to [phone]. CPAP Please provide mask fitting. Pt with [...] - declined referral to vascular Marilia Podlogar, [employer] ENGINEER.COOKER SULFITE Prescription instructions reviewed with patient as applicable. [...] Level: 4 - Moderate documented in this encounterTrihealth Good Samar[facility]10-10-2024 Telephone encounter Note * Telephone Encounter - Sissy Abbott LPN - 02/08/2024 9:58 AM EDT Pt calling for an appt to hillary right lower leg cellulitis. Pt states area has improved, only has slight redness & he would like it recked. Pt reports pain is gone. Pt requesting appt with Telephone Technician Podlogar. 1st avial with her is 02/14/24, pt accepted appt. Sooner appt offered with a different provider, pt declined. Pt instructed if area on leg starts to get worse, more red, painful etc to call for a sooner appt, pt voiced understanding. Pt also requesting flu & covid vaccine at same appt. Sissy Abbott LPN [facility]10-10-2024 Miscellaneous Notes* Telephone Encounter - Sissy Abbott LPN - 02/08/2024 9:58 AM EDT Pt calling for an appt to hillary right lower leg cellulitis. Pt states area has improved, only has slight redness & he would like it recked. Pt reports pain is gone. Pt requesting appt with Telephone Technician Podlogar. 1st avial with her is 02/14/24, pt accepted appt. Sooner appt offered with a different provider, pt declined. Pt instructed if area on leg starts to get worse, more red, painful etc to call for a sooner appt, pt voiced understanding. Pt also requesting flu & covid vaccine at same appt. Sissy Abbott LPN documented in this encounterTrihealth Good Samaritan Hospital09-30-2024 NoteHNO ID: [id number] Author: MARILIA OROZCO APRN.COOKER SULFITE Service: ? 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 PROMINENT PREPATELLAR BURSITIS. MILD OSTEOARTHRITIS. Needle Maker: WILNER Transcribe Date/Time: Jan 26 2024 1:16P [...] of skin of nose Dr. Chowdary in [place] Stage 3a chronic kidney disease (HCC) Venous [...] for 6 days. 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 PROMINENT PREPATELLAR BURSITIS. MILD OSTEOARTHRITIS. Needle Maker: WILNER Transcribe Date/Time: Jan 26 2024 1:16P [...] of skin of nose Dr. Chowdary in [place] Stage 3a chronic kidney disease (HCC) Venous [...] not taking: Reported on 12/19/2023) CPAP AutoPAP [id number]. Mask per preference, tubing, filters, humidity. Lifetime Supplies. Dx: G47.33. Fax 30 day compliance report to [phone]. CPAP Please provide mask fitting. Pt with [...] Level: 4 - Moderate documented in this encounterTrihealth Good Samaritan Hospital09-27-2024 History of Present illness Narrative* Angi Tipton [...] PATIENT PRESENTS WITH AN IMPLANTABLE OR ATTACHED PROCESS ENGINEERING INTERN: No RADIOLOGY DEPARTMENT: MR; Exam(s) Completed: Lower MSK: Knee, right PERIPHERAL IV DATA: Not applicable SIGNED BY: DEEPALI Page January 26, 2024 11:39 AM documented in this encounterTrihealth Good Sam[facility] Hospital09-27-2024 NoteHNO ID: [id number] Author: ANGI TIPTON MRI Tech Service: Radiology [...] PATIENT PRESENTS WITH AN IMPLANTABLE OR ATTACHED PROCESS ENGINEERING INTERN: No RADIOLOGY DEPARTMENT: MR; Exam(s) Completed: Lower MSK: Knee, right PERIPHERAL IV DATA: Not applicable SIGNED BY: Angi Tipton, primary school principal January 26, 2024 11:39 [facility]09-25-2024 NoteHNO ID: [id number] Author: MARILIA OROZCO APRN.COOKER SULFITE Service: ? Author Type: Nurse Practitioner Type: [...] of skin of nose Dr. Chowdary in [place] Stage 3a chronic kidney disease (HCC) Venous [...] not taking: Reported on 12/19/2023) CPAP AutoPAP [id number]. Mask per preference, tubing, filters, humidity. Lifetime Supplies. Dx: G47.33. Fax 30 day compliance report to [phone]. CPAP Please provide mask fitting. Pt with [...] anterior/posterior drawer test. Signi (more content not included)...[facility]09-25-[facility] History of Present illness Narrative* Marilia Orozco APRN.COOKER SULFITE - 01/24/2024 12:05 PM EDT 01/24/2024 Patient [...] of skin of nose Dr. Chowdary in [place] Stage 3a chronic kidney disease (HCC) Venous [...] not taking: Reported on 12/19/2023) CPAP AutoPAP [id number]. Mask per preference, tubing, filters, humidity. Lifetime Supplies. Dx: G47.33. Fax 30 day compliance report to [phone]. CPAP Please provide mask fitting. Pt with [...] MRI KNEE WO IVCON RIGHT Marilia Orozco APRN.COOKER SULFITE Prescription instructions reviewed with patient as applicable. [...] Level: 4 - Moderate documented in this encounterTrihealth Good Sam[facility]09-23-2024 Telephone encounter Note * Telephone Encounter - Eunice Bruce LPN - 01/22/2024 1:30 PM EDT Patient telephoned and notified. Eunice Bruce LPN [facility]09-23-2024 Miscellaneous Notes* Telephone Encounter - Eunice Bruce LPN - 01/22/2024 1:30 PM EDT Patient telephoned and notified. Eunice Bruce LPN * Telephone Encounter - Cassidy Cantu MA - 01/22/2024 10:27 AM EDT ----- Message from Agnes Del Rosario MD sent at 01/22/2024 8:34 AM EDT ----- US negative for superficial or deep clot. documented in this encounterTrihealth Good Samaritan Hospital09-23-2024 NoteHNO ID: [id number] Author: AGNES DEL ROSARIO MD Service: ? [...] of skin of nose Dr. Chowdary in [place] Stage 3a chronic kidney disease (HCC) Venous insufficiency Previous Surgical History PAST SURGICAL HISTORY Procedure Laterality Date ARTHRP ACETBLR/PROX FEM PROSTC AGRFT/ALGRFT Right 06/03/2019 Hip replacement, total COLONOSCOPY FLX DX W/COLLJ SPEC WHEN PFRMD 04/21/11 Repeat 10 [id number] LASER GREENLIGHT prostate, [place] NEUROPLASTY AND/TRANSPOS MEDIAN [...] AN EMPTY STOMACH FOR THYROID CPAP AutoPAP [id number]. Mask per preference, tubing, filters, humidity. Lifetime Supplies. Dx: G47.33. Fax 30 day compliance report to [phone]. CPAP Please provide mask fitting. Pt with [...] 10 mL (BD POSIFLUSH) (more content not included)...[facility] History of Present illness Narrative* Agnes [...] of skin of nose Dr. Chowdary in [place] Stage 3a chronic kidney disease (HCC) Venous insufficiency Previous Surgical History PAST SURGICAL HISTORY Procedure Laterality Date ARTHRP ACETBLR/PROX FEM PROSTC AGRFT/ALGRFT Right 06/03/2019 Hip replacement, total COLONOSCOPY FLX DX W/COLLJ SPEC WHEN PFRMD 04/21/11 Repeat 10 [id number] LASER GREENLIGHT prostate, [place] NEUROPLASTY &/TRANSPOS MEDIAN [...] AN EMPTY STOMACH FOR THYROID CPAP AutoPAP [id number]. Mask per preference, tubing, filters, humidity. Lifetime Supplies. Dx: G47.33. Fax 30 day compliance report to [phone]. CPAP Please provide mask fitting. Pt with [...] Abs Lymph 1.00 - 4.00 k/uL 2.23 [place]% % 10.0 Abs [place] <0.87 k/uL 1.03 (H) [place]% % 1.9 [...] Agnes Del Rosario MD documented in this encounterTrihealth Good [facility]09-23-2024 Telephone encounter Note * Telephone Encounter - Cassidy Cantu MA - 01/22/2024 10:27 AM EDT ----- Message from Agnes Del Rosario MD sent at 01/22/2024 8:34 AM EDT ----- US negative for superficial or deep clot. [facility]09-20-2024 NoteHNO ID: [id number] Author: MARILIA OROZCO APRN.COOKER SULFITE Service: ? Author Type: Nurse Practitioner Type: [...] ice RADIATION: knee down to landry Saw coding quality coordinator yesterday who ordered an xray which has [...] of skin of nose Dr. Chowdary in [place] Stage 3a chronic kidney disease (HCC) Venous [...] not taking: Reported on 12/19/2023) CPAP AutoPAP [id number]. Mask per preference, tubing, filters, humidity. Lifetime Supplies. Dx: G47.33. Fax 30 day compliance report to [phone]. CPAP Please provide mask fitting. Pt with [...] on 10/29/2024 BP Controlled (more content not included)...[facility]09-20-[facility] History of Present illness Narrative* PodlogarMarilia APRN.COOKER SULFITE - 01/19/2024 9:41 AM EDT 01/19/2024 Patient [...] ice RADIATION: knee down to landry Saw coding quality coordinator yesterday who ordered an xray which has [...] of skin of nose Dr. Chowdary in [place] Stage 3a chronic kidney disease (HCC) Venous [...] not taking: Reported on 12/19/2023) CPAP AutoPAP [id number]. Mask per preference, tubing, filters, humidity. Lifetime Supplies. Dx: G47.33. Fax 30 day compliance report to [phone]. CPAP Please provide mask fitting. Pt with [...] ER with red flag symptoms Marilia Podlogar, [employer] ENGINEER.COOKER SULFITE Prescription instructions reviewed with patient as applicable. Patient advised if symptoms do not improve or if symptoms worsen sooner, to contact their primary care physician. Potential red flag symptoms discussed with the patient. Reviewed appropriate action plan to take if red flag symptoms occur. Patient agreeable to treatment plan. documented in this encounterTrihealth Good [facility]09-19-2024 History of Present illness Narrative* Karen Wing [...] PATIENT PRESENTS WITH AN IMPLANTABLE OR ATTACHED PROCESS ENGINEERING INTERN: No RADIOLOGY DEPARTMENT: General X-ray: Exam(s) Completed: Lower Extremity X- Ray(s): Knee, AP / Lat / Tunne / Merchant Right and Wt. Bearing PERIPHERAL IV DATA: Not applicable SIGNED BY: KAYY Bustamante) January 18, 2024 12:17 PM documented in this encounterTrihealth Good Samar[facility]09-19-2024 NoteHNO ID: [id number] Author: KAREN WING RT (R) Service: Radiology [...] PATIENT PRESENTS WITH AN IMPLANTABLE OR ATTACHED PROCESS ENGINEERING INTERN: No RADIOLOGY DEPARTMENT: General X-ray: Exam(s) Completed: Lower Extremity X-Ray(s): Knee, AP / Lat / Tunne / Merchant Right and Wt. Bearing PERIPHERAL IV DATA: Not applicable SIGNED BY: RT Robby(R) January 18, 2024 12:17 [facility]09-19-2024 NoteHNO ID: [id number] Author: JOLEEN MUNOZ APRN.CNP Service: ? Author [...] will be corrected patient was not seen here.[facility]09-19-2024 History of Present illness Narrative* Joleen [...] was not seen here. documented in this encounterTrihealth Good Samaritan Hospital09-19-2024 NoteHNO ID: [id number] Author: VICTOR MANUEL BURROWS DO Service: ? [...] STOMACH FOR THYROIDDisp: 90 tabletRfl: 3 CPAPAutoPAP [id number]. Mask per preference, tubing, filters, humidity. Lifetime Supplies. Dx: G47.33. Fax 30 day compliance report to [phone].Disp: 1 EachRfl: 999 CPAPPlease provide mask fitting. [...] of skin of nose Dr. Chowdary in [place] Stage 3a chronic kidney disease (HCC) Venous insufficiency PAST SURGICAL HISTORY Procedure Laterality Date ARTHRP ACETBLR/PROX FEM PROSTC AGRFT/ALGRFT Right 06/03/2019 Hip replacement, total COLONOSCOPY FLX DX W/COLLJ SPEC WHEN PFRMD 04/21/11 Repeat 10 [id number] LASER GREENLIGHT prostate, [place] NEUROPLASTY AND/TRANSPOS MEDIAN [...] (Myocardial infarction) Maternal Grandfather (more content not included)...[id number] History of Present illness Narrative* TinevangelistaamericoanujVictor Manuel, [...] STOMACH FOR THYROID^Disp: 90 tablet^Rfl: 3 CPAP^AutoPAP [id number]. Mask per preference, tubing, filters, humidity. Lifetime Supplies. Dx: G47.33. Fax 30 day compliance report to [phone].^Disp: 1 Each^Rfl: 999 CPAP^Please provide mask fitting. [...] of skin of nose Dr. Chowdary in [place] Stage 3a chronic kidney disease (HCC) Venous insufficiency PAST SURGICAL HISTORY Procedure Laterality Date ARTHRP ACETBLR/PROX FEM PROSTC AGRFT/ALGRFT Right 06/03/2019 Hip replacement, total COLONOSCOPY FLX DX W/COLLJ SPEC WHEN PFRMD 04/21/11 Repeat 10 [id number] LASER GREENLIGHT prostate, [place] NEUROPLASTY &/TRANSPOS MEDIAN [...] uU/mL HIV No results found for: HIVSCN, DNS52OPUAB] Hepatitis B Surface Antigen No results found [...] DATE of SERVICE: 01/18/2024 documented in this encounterTrihealth Good Samaritan Hospital09-18-2024 NoteHNO ID: [id number] Author: YOGESH FORMAN PT Service: ? Author [...] fall risk. - Partially MET, will continue Millsap in home exercise program including cardiovascular exercise. [...] Patient to be seen for Therapeutic exercise (08995), Neuromuscular re-education (70271), Therapeutic activities (66165), Self-nursing home management (66343), Gait Training (83174), Patient/Family/Caregiver Education, Body Mechanics Training, General Conditioning [...] Patient was educate (more content not included)... [facility]09-18[facility] History of Present illness Narrative* Yogesh [...] fall risk. - Partially MET, will continue Millsap in home exercise program including cardiovascular exercise. [...] Patient to be seen for Therapeutic exercise (05685), Neuromuscular re-education (21416), Therapeutic activities (83847), Self-nursing home management (91463), Gait Training (64676), Patient/Family/Caregiver Education, Body Mechanics Training, General Conditioning [...] 1600 Yogesh Forman PT documented in this encounterTrihealth Good Samaritan Hospital09-16-2024 History of Present illness Narrative* Bruna Chowdary [...] -Reassurance, recommend continued observation documented in [facility] encounterKind[facility] Work Phone: 1(882) 573-455409-12-2024 Telephone encounter Note* Telephone Encounter - Michelle Stroud PSS - 01/11/2024 3:43 PM EDT CD READY FOR JUNIOR BUSINESS ANALYST AT [facility] for pt [facility]09-12-2024 Miscellaneous Notes* Telephone Encounter - Michelle Stroud PSS - 01/11/2024 3:43 PM EDT CD READY FOR JUNIOR BUSINESS ANALYST AT [facility] for pt * Telephone Encounter - [...] request. Harriet Grider RN documented in this encounterTrihealth Good Samaritan Hospital09-11-2024 Telephone encounter Note * Telephone Encounter - Ju Cedillo RN - 01/10/2024 1:[address] Samuel has never seen this patient. Perhaps it should go to radiology or the person who ordered it? [facility]09-11-2024 Telephone encounter Note* Telephone Encounter - Harriet Grider RN - 01/10/2024 11:47 AM EDT Patient calling and requesting a disc for his 05/15/23 Lumbar XRAY. He is interested in getting a disc to mil Painting surgeon. Informed pt that a message would be sent to Radiology for this request. Please call patient with an update regarding this request. Harriet Grider RN [facility]09-11-2024 NoteHNO ID: [id number] Author: YOGESH FORMAN PT Service: ? Author [...] Session Stop Time : 1046 Yogesh Forman [facility]09-11-2024 History of Present illness Narrative* [...] LEVEL OF FUNCTION: TREATMENT: Therapeutic Exercise: 1: Oblong IndustriesFit StepOne seat #16 resistance level 0 x6 [...] 1046 Yogesh Forman PT documented in this encounterTrihealth Good Samaritan Hospital09-09-2024 Telephone encounter Note * Telephone Encounter - [...] Owen MA January 08, 2024 10:21 AM [facility]09-09-2024 Miscellaneous Notes* Telephone Encounter - Amara Owen [...] Thank you. Sheyla Schneider. documented in this encounterTrihealth Good Samaritan Hospital09-09-2024 NoteHNO ID: [id number] Author: SHERRELL JACKSON PT Service: ? Author [...] with balance exercises. TREATMENT: Therapeutic Exercise: 1: Rhytec StepOne seat #16 resistance level 0 x6 [...] patient safety with use of gait belt. Self-Fpc Management: 1: Discussed putting night lights along [...] Session Stop Time : 1019 RUBENS Allred, [facility]09-09-2024 History of Present illness Narrative* [...] with balance exercises. TREATMENT: Therapeutic Exercise: 1: O[employer]ong [employer]Fit StepOne seat #16 resistance level 0 x6 [...] patient safety with use of gait belt. Self-Fpc Management: 1: Discussed putting night lights along [...] 1018 RUBENS Allred PT documented in this encounterTrihealth Good Samaritan Hospital09-07-2024 Telephone encounter Note * Telephone Encounter - [...] found Please advise. Thank you. Sheyla Schneider. [facility]09-05-2024 NoteHNO ID: [id number] Author: YOGESH FORMAN PT Service: ? Author [...] improved ground clearance. TREATMENT: Therapeutic Exercise: 1: Rhytec StepOne seat #16 resistance level 0 x6 [...] Session Stop Time : 162 Yogesh Forman [facility]09-05-2024 History of Present illness Narrative* Lydia Formannt, [...] improved ground clearance. TREATMENT: Therapeutic Exercise: 1: Rhytec StepOne seat #16 resistance level 0 x6 [...] 1627 Yogesh Forman PT documented in this encounterTrihealth Good Samaritan Hospital08-20-2024 History of Present illness Narrative* Xuan Gómez MD - 12/19/2023 2:30 PM EDT Images from the original note were not included. [facility] [place] [facility] Alonso Department of Cardiovascular Medicine SECTION [...] 85 , intermediate risk) and acute right Qmp-Hdu-bjce DVT (10/23/2023) treated with medical management, and [...] of thrombosis: as above, otherwise, History of CVA/TIA/[place]: no Current or prior use of hormonal [...] before dental procedure.^Disp: 4 capsule^Rfl: 3 CPAP^AutoPAP [id number]. Mask per preference, tubing, filters, humidity. Lifetime Supplies. Dx: G47.33. Fax 30 day compliance report to [phone].^Disp: 1 Each^Rfl: 999 CPAP^Please provide mask fitting. 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 Millsap in home exercise program including cardiovascular exercise. [...] Planned: 16 Planned Treatment Interventions: Therapeutic exercise (69374), Neuromuscular re- education (96608), Therapeutic activities (31708), Self-nursing home management (90042), Gait Training (37821), Patient/Family/Caregiver Education, Body Mechanics Training, Functional training, [...] identified in hislungs. [facility] and when discharged, PT was ordered for his unsteady gait. Pt denies any falls. Patient Goals: reconditioning to regain prior functional level. 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 [facility]07-29-2024 Miscellaneous Notes* Telephone Encounter - Halie Perez LPN - 11/27/2023 11:10 AM EDT Patient appt was moved to a sooner date. * Telephone Encounter - Halie Perez LPN - 11/27/2023 10:11 AM EDT Message forwarded to the [facility] clerical pool for assistance with scheduling. * Telephone Encounter - Anitra Fong - 11/27/2023 9:59 AM EDT Patient called and stated that his coding quality coordinator wants him to be seen [facility] and asked if Dr. Pepe can see him sooner than March. Please advise documented in this encounterTrihealth Good Samaritan Hospital07-29-2024 Telephone encounter Note * Telephone Encounter - Halie Perez LPN - 11/27/2023 10:11 AM EDT Message forwarded to the [facility] clerical pool for assistance with scheduling. [facility]07-29-2024 Telephone encounter Note* Telephone Encounter - Anitra Fong - 11/27/2023 9:59 AM EDT Patient called and stated that his coding quality coordinator wants him to be seen [facility] and asked if Dr. Pepe can see him sooner than March. Please advise [facility]07-24-2024 History of Present illness Narrative* Nadeem Barron [...] PATIENT PRESENTS WITH AN IMPLANTABLE OR ATTACHED PROCESS ENGINEERING INTERN: No CREATININE: Creatinine Date Value Ref Range [...] 1332/1355 PATIENT DISCHARGED TO: Ambulatory patient, left [place] department area. A Diagnostic radioactive procedure has taken place, with no further precautions necessary other than routine body substance precautions. More information regarding radiation safety can be found usingthis link: [email or web address] 20Diagnostic%20Nuclear%20Medicine%20Procedures.pdf SIGNATURE: KAYY Mccartney) PATIENT NAME: Fran Parekh DATE: November 22, 2023 TIME: 2:00 PM PAGER/CONTACT #: documented in this encounterTrihealth Good Samaritan Hospital07-24-2024 NoteHNO ID: [id number] Author: NADEEM BARRON RT (R) Service: ? [...] PATIENT PRESENTS WITH AN IMPLANTABLE OR ATTACHED PROCESS ENGINEERING INTERN: No CREATININE: Creatinine Date Value Ref Range [...] 1332/1355 PATIENT DISCHARGED TO: Ambulatory patient, left [place] department area. A Diagnostic radioactive procedure has taken place, with no further precautions necessary other than routine body substance precautions. More information regarding radiation safety can be found using this link: [email or web address] 20Diagnostic%20Nuclear%20Medicine%20Procedures.pdf SIGNATURE: RT Bib(R) PATIENT NAME: Fran Parekh DATE: November 22, 2023 TIME: 2:00 PM [facility]CONTACT #:[facility] [id number] Telephone encounter Note* Telephone Encounter - Piedad Ryan MA - 11/22/2023 8:47 AM EDT Pt requesting refill on eliquis Bronson 11/09/23 Piedad Ryan MA [facility]07-24-2024 Miscellaneous Notes* Telephone Encounter - Piedad Ryan MA - 11/22/2023 8:47 AM EDT Pt requesting refill on eliquis Bronson 11/09/23 Piedad Ryan MA documented in this encounterTrihealth Good Samaritan Hospital07-12-2024 Telephone encounter Note * Telephone Encounter - Sissy Campbell LPN - 11/10/2023 9:48 AM EDT Phoned patient and advised paperwork faxed. Originals mailed to patient and copies forwarded to [employer]. Sissy Campbell LPN [facility]07-12-2024 Miscellaneous Notes* Telephone Encounter - Sissy Campbell LPN - 11/10/2023 9:48 AM EDT Phoned patient and advised paperwork faxed. Originals mailed to patient and copies forwarded to [employer]. Sissy Campbell LPN * Telephone Encounter - Agnes Del Rosario MD - 11/10/2023 8:37 AM EDT Completed and placed in outbox. * Telephone Encounter - Ree Ram LPN - 11/10/2023 8:14 AM EDT Patient calling said needs done [facility] please or his will have to go to [place] to work. . * Telephone Encounter - Agustín Monroy RN - 11/06/2023 10:36 AM EDT Patient calls with fax number to [facility]. Fax number is [phone]. Agustín Monroy RN * Telephone Encounter - [...] Dr. Carin Campbell LPN documented in this encounterTrihealth Good Samaritan Hospital07-12-2024 Telephone encounter Note * Telephone Encounter - Agnes Del Rosario MD - 11/10/2023 8:37 AM EDT Completed and placed in outbox. [facility]07-12-2024 Telephone encounter Note* Telephone Encounter - Ree Ram LPN - 11/10/2023 8:14 AM EDT Patient calling said needs done [facility] please or his will have to go to [place] to work. . [facility]07-11-2024 NoteHNO ID: [id number] Author: VICTOR MANUEL BURROWS DO Service: ? Author Type: Physician Type: Progress Notes Filed: 11/09/2023 14:23 Note Text: [facility] STAFF PHYSICIAN NOTE OF PERSONAL INVOLVEMENT [...] Burrows DO [facility] DATE of SERVICE: 11/09/2023[facility] [id number] History of Present illness Narrative* Victor Manuel Burrows DO - 11/09/2023 2:17 PM EDT [facility] STAFF PHYSICIAN NOTE OF PERSONAL INVOLVEMENT [...] exertion for the prior week or so. [place] acute shortness of breath and severe lightheadedness [...] of skin of nose Dr. Chowdary in [place] Stage 3a chronic kidney disease (HCC) Venous insufficiency HTN DM Type 2 Pulmonary Embolism/DVT Lung Nodules Social History Leads sedentary lifestyle getting up from chair to go to the restroom, eat, etc. Swam recreationally until about a year ago. He denies surgery in the last 3 months, trauma, immobilization, travel, family history of clotting disorder. Does fly to [place] about 3 times/year, last trip around [place]. Never smoked, IV, drugs, or alcohol. Family [...] lung cancer in his father. 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 [...] exertion for the prior week or so. [place] acute shortness of breath and severe lightheadedness [...] of skin of nose Dr. Chowdary in [place] Stage 3a chronic kidney disease (HCC) Venous insufficiency HTN DM Type 2 Pulmonary Embolism/DVT Lung Nodules Social History Leads sedentary lifestyle getting up from chair to go to the restroom, eat, etc. Swam recreationally until about a year ago. He denies surgery in the last 3 months, trauma, immobilization, travel, family history of clotting disorder. Does fly to [place] about 3 times/year, last trip around [place]. Never smoked, IV, drugs, or alcohol. Family [...] lung cancer in his father. 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 Fax number is [phone]. Agustín Monroy RN [facility]07-08-2024 History of Present illness Narrative* Leonila Pino [...] Status: In-Network Discharge Summary: Pt discharged from [facility] on 10/27/23. Admitted for: complaint of SOB and dizziness and was found to have saddle PE and right LE DVT Concerns: see above Show Card Writer plan for next outreach: Will follow up weekly for 30 days post discharge ANTONIO Education Ordered -: No antonio previously placed for patient prior to this encounter Leonila Pino RN November 06, 2023 10:24 AM documented in this encounterTrihealth Good Samaritan Hospital07-08-2024 Telephone encounter Note * Telephone Encounter - Agnes Del Rosario MD - 11/06/2023 9:50 AM EDT Will review and call when completed. [facility]07-08-20[facility] Telephone encounter Note* Telephone Encounter - Sissy [...] to Physician Desk: Dr. Carin Campbell LPN [facility]07-03-2024 Telephone encounter Note* Telephone Encounter - Malachi Castillo RN - 11/01/2023 2:34 PM EDT Notified Polina of PT order. [facility]07-03-2024 Miscellaneous Notes* Telephone Encounter - Malachi Castillo RN - 11/01/2023 2:34 PM EDT Notified Polina of PT order. * Telephone Encounter - Agnes Del Rosario MD - 11/01/2023 12:57 PM EDT Referral order to PT for unsteady gait placed as requested. * Telephone Encounter - Carli Bowen RN - 11/01/2023 12:48 PM EDT Polina BONILLAallied health teacher calls and reports that she went out to see patient today. Patient does not need home health services of nursing and PT. Patient is not home bound and is planning to go back to work. Polina asking if provider can write order for outpatient physical therapy? Please review and advise, Carli Bowen RN documented in this encounterTrihealth Good Samaritan Hospital07-03-2024 Telephone encounter Note * Telephone Encounter - Agnes Del Rosario MD - 11/01/2023 12:57 PM EDT Referral order to PT for unsteady gait placed as requested. [facility]07-03-[facility] Telephone encounter Note* Telephone Encounter - Carli Bowen RN - 11/01/2023 12:48 PM EDT Polina BONILLAallied health teacher calls and reports that she went out to see patient today. Patient does not need home health services of nursing and PT. Patient is not home bound and is planning to go back to work. Polina asking if provider can write order for outpatient physical therapy? Please review and advise, Carli Bowen RN [facility]07-02-2024 Telephone encounter Note* Telephone Encounter - Carmela Trevizo OCCA - 10/31/2023 8:36 AM EDT TC to Divina who is informed of below. ADAN Stewart [facility]07-02-2024 Miscellaneous Notes* Telephone Encounter - Carmela Trevizo [...] follow and sign for home careorders for Penitentiary and PT. DX hypertension. Pt was d/c from [facility] on 10-27-23. Please advise Divina. Leonila Winslow LPN documented in this encounterTrihealth Good Samaritan Hospital07-02-2024 Telephone encounter Note * Telephone Encounter - Agnes Del Rosario MD - 10/31/2023 8:20 AM EDT Yes, will sign and follow. [facility]07-02-2024 Telephone encounter Note* Telephone Encounter - Leonila Winslow LPN - 10/31/2023 8:13 AM EDT Divina with [facility] calling to see if you will follow and sign for home careorders for Penitentiary and PT. DX hypertension. Pt was d/c from [facility] on 10-27-23. Please advise Divina. Leonila Winslow LPN [facility]07-01-2024 History of Present illness Narrative* Leonila Pino, [...] then after patient has not heard from [facility] - states he will call tomorrow afternoon if no contact first SUMMARY: Discharge Network Status: In-Network Discharge Pt discharged from [facility] on 10/27/23. Admitted for: complaint of SOB and dizziness and was found to have saddle PE and right LE DVT Contact made with patient: Yes Hi my name is Leonila Pino RN and I am calling [facility] the [facility] on behalf of your PCP, Agnes Del [...] like to speak with a social work steamboat captain to help give you support for any [...] I will send your request to a manufacturing scheduler who will contact and assist you with [...] 30, 2023 4:12 PM documented in this encounterTrihealth Good Samaritan Hospital07-01-2024 History of Present illness Narrative* Agnes Del [...] time of this appointment. Patient admitted to [facility] from 10/22 to 10/26 for initial complaint [...] of skin of nose Dr. Chowdary in [place] Stage 3a chronic kidney disease (HCC) Venous insufficiency Previous Surgical History PAST SURGICAL HISTORY Procedure Laterality Date ARTHRP ACETBLR/PROX FEM PROSTC AGRFT/ALGRFT Right 06/03/2019 Hip replacement, total COLONOSCOPY FLX DX W/COLLJ SPEC WHEN PFRMD 04/21/11 Repeat 10 [id number] LASER GREENLIGHT prostate, [place] NEUROPLASTY &/TRANSPOS MEDIAN [...] one hour before dental procedure. CPAP AutoPAP [id number]. Mask per preference, tubing, filters, humidity. Lif[employer] Supplies. Dx: G47.33. Fax 30 day compliance report to [phone]. CPAP Please provide mask fitting. Pt with [...] which included preparing to see the patient, dyrl-pa-fght patient care, completing clinical documentation, obtaining and/or reviewing separately obtained history, performing a medically appropriate examination, counseling and educating the pat ient/family/caregiver, and ordering medications, tests, or procedures. Agnes Del Rosario MD documented in this encounterTrihealth Good Samaritan Hospital07-01-2024 Evaluation note* Diagnosis Stage 3 chronic kidney disease, unspecified whether stage 3a or 3b CKD (HCC)- Primary documented in this encounter [facility]06-28-2024 NoteHNO ID: [id number] Author: STEFANI GARSIA RN Service: Care Management Author Type: Registered Nurse Type: Care Mgt Progress Note Filed: 10/30/2023 14:40 Note Text: CARE MANAGEMENT PROGRESS NOTE SERVICE DATE: 10/30/2023 SERVICE TIME: 2:24 PM LOS: 4 days [place] caretenders unable to commit. Canceled referral sent to [facility] they have accepted. Called pt. Have explained that caretenders having difficulty committing . Sending ref to [facility]. He agreed with the plan SIGNATURE: Stefani Garsia RN PATIENT NAME: Fran Parekh DATE: October 30, 2023 TIME: 2:23 PM PAGER/CONTACT #: [phone] [id number] NoteHNO ID: [id number] Author: ?, ?, ? Service: ? Author Type: ? Type: Plan of Care Filed: 10/30/2023 10:38 Note Text: PHARMACY BEDSIDE DELIVERY SERVICE Patient Name: Fran Parekh The marked outpatient medications were filled at [facility] pharmacy and picked up at the [...] Thank you. DME = [employer] CPAP AutoPAP [id number]. Mask per preference, tubing, filters, humidity. Lif[employer] Supplies. Dx: G47.33. Fax 30 day compliance report to [phone]. gabapentin 300 mg capsule Commonly known as: [...] Generic drug: naproxen sodium Fatimah Abarca PAGER: [phone] October 30, 2023 10:37 [facility]06-28-2024 NoteHNO ID: [id number] Author: STEFANI GARSIA RN Service: Care Management Author Type: Registered Nurse Type: Care Mgt Progress Note Filed: 10/27/2023 15:28 Note Text: CARE MANAGEMENT DISCHARGE NOTE SERVICE DATE: October 27, 2023 SERVICE TIME: 3:27 PM Admission Date: 10/23/2023 LOS: 4 days Discharge Arrangement Discharge Arrangement: Home with Home Health, Home with Relative Services Arranged Medical Services: Skilled Home Health Care Caregiver Assessment Needs [facility] Transportation Arrangements Transportation Arrangements: Car Date of Trip: 10/27/23 Destination: home Handoff Communication: Handoff to: Primary Care Physician Primary Care Physician Name/Phone: dr tierney Additional Information: Discharge Information Row Name Admission (Current) from 10/23/[address] [facility] Agency [facility] Start of Care -- they will call to set up appointment Reviewed 9 page list picked care tenders in [place] SIGNATURE: Stefani Garsia RN PATIENT NAME: Fran Mueller Iglesia DATE: October 27, 2023 TIME: 3:27 PM CONTACT #: [phone] NoteHNO ID: [id number] Author: STEFANI GARSIA RN Service: Care Management Author Type: Registered Nurse Type: Care Mgt Progress Note Filed: 10/27/2023 15:17 Note Text: CARE MANAGEMENT PROGRESS NOTE SERVICE DATE: 10/27/2023 SERVICE TIME: 3:16 PM LOS: 4 days [place] of Choice Given: Yes Level of Care Discussed: Home Care Financial Disclosure Provided: Yes Provider List: Home Care Provider list within the patient's requested geographic area shared with the patient/family: Yes within: 15 miles of zip code: [address] Quality and resource use metrics shared with the patient that are relevant to the patient's goals of care and treatment preferences:: Yes First choice is care tenders [place] SIGNATURE: Stefani Garsia RN PATIENT NAME: Fran Parekh DATE: October 27, 2023 TIME: 3:16 PM PAGER/CONTACT #: [phone] [id number] NoteHNO ID: [id number] Author: MARQUITA HARP MD Service: Hospital Medicine [...] Each OTHER DAILY - (more content not included)...Nora [id number] Telephone encounter Note* Telephone Encounter - Sissy Campbell LPN - 10/26/2023 1:32 PM EDT Phoned patient and discussed with him recommendations. Patient agreeable to 10/30/23 at 1:20pm. [facility]06-27-2024 Miscellaneous Notes* Telephone Encounter - Sissy Campbell LPN - 10/26/2023 1:32 PM EDT Phoned patient and discussed with him recommendations. Patient agreeable to 10/30/23 at 1:20pm. * Telephone Encounter - Agnes Del Rosario MD - 10/26/2023 1:22 PM EDT I was called by the hospitalist at [facility] for this patient regarding new diagnosis of PE and DVT.He is on day 6 of 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 with coumadin and is still not therapeutic. They are wanting to starting him on lovenox and continue coumadin and have him f/u with our office on Monday for appointment and INR. Please call to schedule 40 minute OV with me. documented in this encounterTrihealth [facility]06-27-2024 Telephone encounter Note * Telephone Encounter - Agnes Del Rosario MD - 10/26/2023 1:22 PM EDT I was called by the hospitalist at [facility] for this patient regarding new diagnosis of PE and DVT.He is on day 6 of 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 with coumadin and is still not therapeutic. They are wanting to starting him on lovenox and continue coumadin and have him f/u with our office on Monday for appointment and INR. Please call to schedule 40 minute OV with me. [facility]06-26-2024 NoteHNO ID: [id number] Author: MARQUITA HARP MD Service: Hospital Medicine [...] Given, 10/24 0835 06 (more content not included)...[id number] NoteHNO ID: [id number] Author: FATIMAH DAN MD Service: Critical Care [...] and Airways Line Duration Peripheral 10/23/23 0230 [facility] Left Forearm 20 Gauge 1 day Peripheral 10/24/23 0400 [facility] Right Forearm 20 Gauge <1 day [...] Pharmacy Will need outpatient follow-up with Dr CMCLAIN at pulmonary hypertension follow-up for possible CTEPH workup Chronic disease #CKD stage 3a- continue to monitor BMP #Hypertension- continue home medication lisinopril and metoprolol, will hold hydrochlorothiazide #Hypothyroid- continue synthyroid 125 mcg #Neuropathy- continue Gabapentin 3 (more content not included)...[facility] [id number] NoteHNO ID: [id number] Author: YUMIKO PAREDES, RN Service: Care Management [...] RA. Per medical team possible transfer to [facility] if hemodynamically stable. Plan for home with no skilled needs. remains available for plan of care and discharge planning needs as they arise. SIGNATURE: Yumiko Paredes RN PATIENT NAME: Fran Parekh DATE: October 24, 2023 TIME: 9:34 AM PAGER/CONTACT #:[facility] [id number] NoteHNO ID: [id number] Author: FATIMAH DAN MD Service: Critical Care Author Type: Physician Type: Progress Notes Filed: 10/24/2023 13:34 Note Text: [facility] STAFF PHYSICIAN NOTE OF PERSONAL INVOLVEMENT [...] hypothyroidism, and CKD IIIa. Initially presented to [place] ED 10/21 with concerns for SOB and lightheadedness. Lightheadedness x24 hours, SOB x2 weeks. CTPE with saddle PE with extension R and L main (R centric, L near vessel wall). Imaging concerns for RH strain. [facility]. On arrival, [...] of care, medical plan for the day, content management consultant recommendations, medical disposition and current medical condition/prognosis as and if clinically indicated. All questions and concerns were answered and addressed at this juncture. They were contacted on October 24, 2023 at 11:30 Am. The duration of the conversation was 5 minutes. Moderate complexity. Ok for RNF SIGNATURE: Fatimah Dan MD [facility] DATE of SERVICE: 10/24/2023[facility] [id number] NoteHNO ID: [id number] Author: DEISY HORTON RN Service: Care Management Author Type: Registered Nurse Type: Care Mgt Initial Assessment Filed: 10/23/2023 13:15 Note Text: CARE MANAGEMENT: ASSESSMENT AND DISCHARGE PLAN SERVICE DATE: October 23, 2023 SERVICE TIME: 1045 PCP: Agnes Del Rosario MD Primary Contact: Extended Emergency Contact Information Primary Emergency Contact: Estefania Parekh Address: [address] [place] [address] Mobile Relation: Spouse Admission Status: Inpatient Insurance Provider: MEDICARE A AND B Discharge Planning requested by: Per Department Practice Potential Transition Plans No Services Indicated Advance Directives Current Advance Directive: Health Care Power of Instrumentation Manager In Chart: No Washer And 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 Pt lives with his in a 2 story home. Pt is currently in [place]. Pt states no other DME besides CPAP and no services in the home. Pt states no issues with SDOH, substances or BH. Pt states no concerns at d/c. Plan for d/c with no skilled needs. SIGNATURE: Deisy Horton RN PATIENT NAME: Fran Parekh DATE: October 23, 2023 TIME: 1:09 PM CONTACT # [phone] NoteHNO ID: [id number] Author: FATIMAH DAN MD Service: Critical Care [...] obesity, hypothyroidism, and CKD IIIa. Presenting from [place] with Submassive intermediate to high risk PE [...] Clinical Associate Staff, Critical care Medicine Pager: [phone] October 23, 2023 3:33 [facility]06-24-2024 NoteHNO ID: [id number] Author: ANNE-MARIE MARRUFO DO Service: Critical Care Author Type: Resident Type: Plan of Care Filed: 10/23/2023 14:17 Note Text: This is a 78-year-old male with a past medical history of hypertension, hyperlipidemia, hypothyroidism, MARTIN on CPAP, prediabetes, CKD, and angina who presents with dizziness and lightheadedness from [place] and was found to have a saddle pulmonary embolism. CT of the chest was performed and showed a saddle embolus with thrombus in the right main pulmonary artery (50% lumen of the vessel., Left main 20 to 30% lumen of the vessel. Given requirement for PERT team consultation patient [facility]. Discussions with Dr. Gonzales determined [...] with the pulmonary hypertension treatment. Anne-Marie Marrufo DOWalden Behavioral [id number] NoteHNO ID: [id number] Author: FATIMAH DAN MD Service: Critical Care Author Type: Physician Type: Progress Notes Filed: 10/23/2023 15:39 Note Text: [facility] STAFF PHYSICIAN NOTE OF PERSONAL INVOLVEMENT [...] hypothyroidism, and CKD IIIa. Initially presented to [place] ED 10/21 with concerns for SOB and lightheadedness. Lightheadedness x24 hours, SOB x2 weeks. CTPE with saddle PE with extension R and L main (R centric, L near vessel wall). Imaging concerns for RH strain. [facility]. On arrival, [...] Full Code Family Contact: Disposition: [facility] Patient/Family Updated: Patient, Fran Parekh, contacted. They were updated on the patient's goals of care, medical plan for the day, content management consultant recommendations, medical disposition and current medical condition/prognosis as and if clinically indicated. All questions and concerns were answered and addressed at this juncture. They were contacted on October 23, 2023 at 11:15 AM. The duration of the conversation was 5 minutes. Billing performed by overnight team on early AM admission. SIGNATURE: Fatimah Dan MD [facility] DATE of SERVICE: 10/23/2023[facility] [id number] History of Present illness Narrative* Sherrell Rouse APRN.COOKER SULFITE - 10/09/2023 7:23 AM EDT This note [...] of skin of nose Dr. Chowdary in [place] Stage 3a chronic kidney disease (HCC) Venous insufficiency PAST SURGICAL HISTORY Procedure Laterality Date ARTHRP ACETBLR/PROX FEM PROSTC AGRFT/ALGRFT Right 06/03/2019 Hip replacement, total COLONOSCOPY FLX DX W/COLLJ SPEC WHEN PFRMD 04/21/11 Repeat 10 [id number] LASER GREENLIGHT prostate, [place] NEUROPLASTY &/TRANSPOS MEDIAN [...] before dental procedure.^Disp: 4 capsule^Rfl: 3 CPAP^AutoPAP [id number]. Mask per preference, tubing, filters, humidity. Lifetime Supplies. Dx: G47.33. Fax 30 day compliance report to [phone].^Disp: 1 Each^Rfl: 999 CPAP^Please provide mask fitting. [...] red flags V/units with PCP Sherrell Rouse APRN.COOKER SULFITE documented in this encounterTri[facility]05-[facility] Telephone encounter Note * Telephone Encounter - [...] Please advise. Thank you. Agustín Monroy RN. [facility]05-29-2024 Miscellaneous Notes* Telephone Encounter - Agustín Monroy [...] you. Agustín Monroy RN. documented in this encounterTrihealth [facility]05-06-2024 Telephone encounter Note * Telephone Encounter - [...] No need to notify patient. Marilia Brush [facility]05-06-2024 Miscellaneous Notes* Telephone Encounter - Marilia Brush [...] notify patient. Marilia Brush documented in this encounterTrihealth [facility]04-02-2024 History of Present illness Narrative* Marilia Orozco APRN.COOKER SULFITE - 08/01/2023 9:40 AM EDT 07/31/2023 Patient [...] of skin of nose Dr. Chowdary in [place] Stage 3a chronic kidney disease (HCC) Venous [...] one hour before dental procedure. CPAP AutoPAP [id number]. Mask per preference, tubing, filters, humidity. Lifetime Supplies. Dx: G47.33. Fax 30 day compliance report to [phone]. CPAP Please provide mask fitting. Pt with [...] in October, sooner if needed Marilia Orozco APRN.COOKER SULFITE Prescription instructions reviewed with patient as applicable. [...] Level: 3 - Low documented in this encounterTrihealth [facility]03-09-2024 Miscellaneous Notes* Telephone Encounter - Lashawn Voss LPN - 07/08/2023 11:40 AM EST letter completed and sent out via mail to patient. Lashawn Voss LPN * Telephone Encounter - Agnes Del Rosario MD - 07/08/2023 11:31 AM EST Letter printed and signed for patient to picker feeder at his convenience. * Telephone Encounter - [...] MD - 07/08/2023 9:18 AM EST The [employer] [employer] and the [place] [employer] both advise againstthe [...] had hip surgery by Dr Claire in [place], and the provider no longer worksthere. He states he is supposed to have an antibiotic an hour before getting his teeth cleaned and the dentist will not prescribe them for him. Pt is asking if the provider will call the antibiotic for him to [facility] in [place]. Pt states he missed his appointment, so he is on the call in list right now. Please call and advise Pt. documented in this encounterTrihealth [facility]02-22-2024 Miscellaneous Notes* Telephone Encounter - Agustín Monroy [...] understanding. Agustín Monroy RN documented in this encounterTrihealth Good [facility]02-16-2024 Nurse Note* Eunice Bruce LPN - 06/16/2023 11:39 AM EST ALESSIA BP average: BP 161/97 P 66 #1 BP 152/89 P 68 #2 BP 161/98 P 67 #3 BP 155/96 P 66 #4 BP 154/92 P 66 #5 BP 168/96 P 67 #6 BP 166/102 P 67 Eunice Bruce LPN documented in this encounterTrihealth Good [facility]02-16-2024 History of Present illness Narrative* Marilia Orozco APRN.COOKER SULFITE - 06/16/2023 10:40 AM EST 06/16/2023 Patient [...] of skin of nose Dr. Chowdary in [place] Stage 3a chronic kidney disease (HCC) Venous [...] one hour before dental procedure. CPAP AutoPAP [id number]. Mask per preference, tubing, filters, humidity. Lifetime Supplies. Dx: G47.33. Fax 30 day compliance report to [phone]. CPAP Please provide mask fitting. Pt with [...] Level: 4 - Moderate documented in this encounterTrihealth [facility]01-15-2024 History of Present illness Narrative* Karen Wing [...] 15, 2023 10:09 AM documented in this encounterTrihealth Good Sam[facility]11-20-2023 Miscellaneous Notes* Telephone Encounter - John Mayen Ma - 03/20/2023 10:53 AM EST Patient last visit 11/02/22 Follow up appointment scheduled 05/15/23 John Mayen Ma documented in this encounterTrihealth Good Sam[facility]11-13-2023 History of Present illness Narrative* Anusha Trevino [...] 13, 2023 9:53 AM documented in this encounterTrihealth Good Sam[facility]11-07-2023 Miscellaneous Notes* Telephone Encounter - Radha Montgomery [...] Patient aware RX will be sent to [facility] pharmacy. No need to notify patient. Marilia Brush documented in this encounterTrihealth Good Sam[facility]10-10-2023 Miscellaneous Notes* Telephone Encounter - Leonila Winslow [...] and advise. Sherrell Pardo documented in this encounterTrihealth Good Samar[facility] Hospital09-25-2023 Miscellaneous Notes* Telephone Encounter - Alexandrea Winslow LPN - 01/23/2023 9:08 AM EDT Faxed Rx medical necessity for durable medical equipment to [facility] [phone]. Document scanned into chart. Alexandrea Winslow LPN documented in this encounterTrihealth Good Samar[facility]08-31-2023 History of Present illness Narrative* Yogesh Forman [...] and treatment included: Therapeutic exercise, Manual therapy, Self-nursing home management, Patient/Family/Caregiver Education, and Body mechanics training. [...] 1135 Yogesh Forman PT documented in this encounterTrihealth [facility]08-29-2023 History of Present illness Narrative* Yogesh Forman [...] LEVEL OF FUNCTION: TREATMENT: Therapeutic Exercise: 1: Oblong IndustriesFit StepOne seat #15 x5 minutes resistance level [...] and assessment of patient's response to intervention. Self-Fpc Management: 1: Pt was educated on PNE [...] 153 Yogesh Forman PT documented in this encounterTrihealth Good Sam[facility]08-24-2023 History of Present illness Narrative* Yogesh Forman [...] 1139 Yogesh Forman PT documented in this encounterTrihealth [facility]08-18-2023 History of Present illness Narrative* Yogesh Forman [...] LEVEL OF FUNCTION: TREATMENT: Therapeutic Exercise: 1: Oblong IndustriesFit StepOne seat #15 x6 minutes resistance level [...] 1348 Yogesh Golias, PT documented in this encounterTrihealth Good Samar[facility]08-10-2023 History of Present illness Narrative* Yogesh Forman [...] in pain in short term and mild usp improvement. The patient will continue to benefit [...] LEVEL OF FUNCTION: TREATMENT: Therapeutic Exercise: 1: [employer] StepOne seat #15 x6 minutes resistance level [...] 1645 Yogesh Forman PT documented in this encounterTrihealth [facility]08-10-2023 Miscellaneous Notes* Telephone Encounter - Amberly Velazquez [...] and advise. Amberly Velazquez documented in this encounterTrihealth Good Samar[facility]08-08-2023 History of Present illness Narrative* Yogesh Forman [...] 1532 Yogesh Forman PT documented in this encounterTrihealth Good [facility]08-03-2023 History of Present illness Narrative* Yogesh Forman [...] LEVEL OF FUNCTION: TREATMENT: Therapeutic Exercise: 1: [employer]ong [employer]Fit StepOne seat #15 x6 minutes resistance level [...] 1135 Yogesh Forman PT documented in this encounterTrihealth Good [facility]08-01-2023 History of Present illness Narrative* Sherrell Jackson [...] Planned: 16 Planned Treatment Interventions: Therapeutic exercise (06493), Neuromuscular re- education (17904), Manual therapy (31381), Therapeutic activities (03367), Self- nursing home management (21209), Gait Training (79379), Patient/Family/Caregiver Education PLAN FOR NEXT VISIT: Pt. [...] has not completed his HEP since about [place] time. 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 Patient education as noted. Self-Fpc Management: 1: *discussed centralization and directional preference with lumbar flexion based exercises 2: *discussed wedge may be purchased on [employer], provided dimensions and search words to pt. [...] 1245 Sherrell Jackson, PT documented in this [facility]07-12-2023 Miscellaneous Notes* Telephone Encounter - Wilda Perea MA - 11/09/2022 10:37 AM EDT Mychart message sent. Wilda Perea MA * Telephone Encounter - Wilda Perea MA - 11/09/2022 8:14 AM EDT ----- Message from Marilia Orozco APRN.[employer] SULFITE sent at 11/08/2022 3:20 PM EDT ----- ECHO shows good heart pumping function with no valvular abnormalities. Marilia Orozco APRN.COOKER SULFITE documented in this encounterTrihealth [facility]07-10-2023 History of Present illness Narrative* Dafne Carrillo, CHAD - 11/07/2022 4:20 PM EDT 22 ga angio started to right forearm. Good blood return. Flushed easily with NSS. Dressing applied.Definity (Lot # [id number] exp 7-1-24) mixed per protocol. 1 cc administered throughout procedure. 9 cc discarded. Pt tolerated procedure well. No C/o's, Hep lock D/c'd and dressing applied. Patient discharged ambulatory with Ticket Sales Supervisor. Dafne Carrillo, RN documented in this [facility]07-06-2023 Miscellaneous Notes* Telephone Encounter - Radha Montgomery [...] stage 3.F/u as scheduled. documented in this encounterTrihealth Good [facility]07-05-2023 History of Present illness Narrative* Marilia Orozco APRN.COOKER SULFITE - 11/02/2022 8:27 AM EDT 11/02/2022 Patient [...] of skin of nose Dr. Chowdary in [place] Stage 3a chronic kidney disease (HCC) Venous [...] ON EMPTY STOMACH. FOR THYROID CPAP AutoPAP [id number]. Mask per preference, tubing, filters, humidity. Lifetime Supplies. Dx: G47.33. Fax 30 day compliance report to [phone]. lisinopril (ZESTRIL, PRINIVIL) 40 mg tablet Take [...] 0.9 % (FLUSH) INJECTION SYRINGE Marilia Orozco APRN.COOKER SULFITE Prescription instructions reviewed with patient as applicable. [...] which included preparing to see the patient, [id number] patient care, completing clinical documentation, obtaining and/or reviewing separately obtained history, performing a medically appropriate examination, counseling and educating the pat ient/family/caregiver, and ordering medications, tests, or procedures. documented in this encounterTrihealth Good [facility]02-10-2023 Miscellaneous Notes* Telephone Encounter - Uziel Perez PA-C - 06/10/2022 10:28 AM EST E-script has been sent to [facility]. Uziel Perez PA-C * Telephone Encounter - Magali Andrews - 06/10/2022 9:03 AM EST Patient is getting dental work done on Monday morning (06/13/21). He needs a prescription for antibiotics. Please send to [facility]/pharmacy #[id number] - [place] [address] - [address] [facility] / pharmacy on file. documented in this encounterTrihealth Good [facility]01-23-2023 History of Present illness Narrative* Cole Campos [...] ON EMPTY STOMACH. FOR THYROID CPAP AutoPAP [id number]. Mask per preference, tubing, filters, humidity. Lifetime Supplies. Dx: G47.33. Fax 30 day compliance report to [phone]. lisinopril (ZESTRIL, PRINIVIL) 40 mg tablet Take [...] CAPSULE Cole Campos MD documented in this encounterTrihealth [facility]01-11-2023 Miscellaneous Notes* Telephone Encounter - Lindsay Pang [...] Thank you. Lindsay Pang documented in this encounterTrihealth [facility]12-14-2022 History of Present illness Narrative* Agnes Del [...] of skin of nose Dr. Chowdary in [place] Stage 3a chronic kidney disease (HCC) Venous insufficiency PAST SURGICAL HISTORY Procedure Laterality Date ARTHRP ACETBLR/PROX FEM PROSTC AGRFT/ALGRFT Right 06/03/2019 Hip replacement, total COLONOSCOPY FLX DX W/COLLJ SPEC WHEN PFRMD 04/21/11 Repeat 10 [id number] LASER GREENLIGHT prostate, [place] NEUROPLASTY &/TRANSPOS MEDIAN [...] MD Agnes Singh MD documented in this encounterTrihealth [facility]12-12-2022 History of Present illness Narrative* Anusha Trevino [...] 11, 2022 11:41 AM documented in this encounterTrihealth Good Sam[facility]10-14-2022 History of Present illness Narrative* Bruno Marquez [...] mg by mouth once daily. CPAP AutoPAP [id number]. Mask per preference, tubing, filters, humidity. Lifetime Supplies. Dx: G47.33. Fax 30 day compliance report to [phone]. MULTIVITAMIN,TX-MINERALS ORAL TAB Take one(1) tablet daily. [...] of skin of nose Dr. Chowdary in [place] Stage 3a chronic kidney disease (HCC) Venous [...] due for new equipment. [facility] Advised pt not to drive or operate heavy machinery when sleepy. Follow up in 1 year. Bruno Marquez MD I spent a total of 22 minutes on the date of the service which included preparing to see the patient, [id number] patient care, completing clinical documentation, obtaining and/or reviewing separately obtained history, performing a medically appropriate examination, counseling and educating the pat ient/family/caregiver, ordering medications, tests, or procedures, independently interpreting results (not separately reported), and communicating results to the patient/family/caregiver. documented in this encounterTrihealth [facility]10-06-2022 History of Present illness Narrative* Yogesh Forman [...] included: Therapeutic exercise, Manual therapy, Therapeutic activities, Self-nursing home management, Patient/Family/Caregiver Education, and Body mechanics training. [...] 45 Yogesh Forman PT documented in this encounterTrihealth [facility]10-03-2022 History of Present illness Narrative* Yogesh Forman [...] LEVEL OF FUNCTION: TREATMENT: Therapeutic Exercise: 1: Oblong IndustriesFit StepOne seat #16 x5 minutes resistance number 5 (Pt provided an update on his condition and subjective collected.) 2: supine B SKTC 2x30 seconds 3: supine DKTC 2x30 seconds with towel 4: supine LTR 2x10 5: stirring the pot standing at [facility] 1 plate plus 2 round 2x10 CW and 2x10 CCW facing both lateraldirections 6: standing at [facility], palloff press with 1 plate and 2 round 2x12 facing both lateral directions. 7: seated at [facility] with maria del rosario overhead 2 plates [...] Gibbs, RUBENS Forman, PT documented in this encounterTrihealth [facility]09-26-[facility] History of Present illness Narrative* Yogesh Forman [...] LEVEL OF FUNCTION: TREATMENT: Therapeutic Exercise: 1: [employer] StepOne seat #16 x5 minutes resistance number 5 (Pt provided an update on his condition and subjective collected.) 2: supine B SKTC 2x30 seconds 3: supine DKTC 2x30 seconds with towel 4: supine LTR 2x10 5: stirring the pot standing at [facility] 1 plate plus 2 round 2x10 CW and 2x10 CCW facing both lateraldirections 6: standing at [facility], palloff press with 1 plate and 2 [...] 45 Yogesh Forman PT documented in this encounterTrihealth [facility]09-22-[facility] History of Present illness Narrative* Yogesh Forman [...] 2x10 5: stirring the pot standing at [facility] 1 plate plus 2 round 2x10 CW and 2x10 CCW facing both lateraldirections 6: standing at [facility], palloff press with 1 plate and 2 round 2x12 facing both lateral directions. 7: seated at [facility] with maria del rosario overhead 2 plates [...] 43 RUBENS Allred PT documented in this encounterTrihealth [facility] Sam[facility]09-19-2022 History of Present illness Narrative* Gregory Moyer [...] relieves symptoms today TREATMENT: Therapeutic Exercise: 1: [employer] StepOne seat #16 x5 minutes resistance number 5 (Pt provided an update on his condition and subjective collected.) 2: supine B SKTC 2x30 seconds 3: supine DKTC 2x30 seconds with towel 4: supine LTR 2x10 5: stirring the pot standing at [facility] 1 plate plus 2 round x10 CW and x10 CCW facing both lateral directions 6: standing at [facility], palloff press with 1 plate and 2 round 2x10 facing both lateral directions. 7: seated at [facility] with maria del rosario overhead 2 plates [...] 42 RUBENS Allred PT documented in this encounterTrihealth [facility]09-14-[facility] History of Present illness Narrative* Yogesh Forman [...] LEVEL OF FUNCTION: TREATMENT: Therapeutic Exercise: 1: [employer] StepOne seat #16 x5 minutes resistance number 5 (Pt provided an update on his condition and subjective collected.) 2: supine B SKTC 2x30 seconds 3: supine DKTC 2x30 seconds with towel 4: supine LTR 2x10 5: stirring the pot standing at [facility] 1 plate plus 2 round x10 CW and x10 CCW facing both lateral directions 6: standing at [facility], palloff press with 1 plate and [...] 45 Yogesh Forman PT documented in this encounterTrihealth [facility]09-12-[facility]22 History of Present illness Narrative* Yogesh Forman [...] 45 Yogesh Forman PT documented in this encounterTrihealth [facility]09-06-[facility] History of Present illness Narrative* Yogesh Forman [...] Treatment Time Minutes (timed/untimed): 45 Tabby Donaldjason, AGRICULTURAL EDUCATION INSTRUCTOR Yogesh Forman PT documented in this encounterTrihealth [facility]08-31-2022 History of Present illness Narrative* Yogesh Forman [...] 45 RUBENS Patel PT documented in this encounterTrihealth [facility] Sam[facility]08-29-2022 History of Present illness Narrative* Yogesh Forman [...] less verbal cueing. TREATMENT: Therapeutic Exercise: 1: [employer] StepOne seat #16 x5 minutes handles at [...] Treatment Time Minutes (timed/untimed): 45 Xiao Humphrey, AGRICULTURAL EDUCATION INSTRUCTOR Yogesh Golias, PT documented in this encounterTrihealth [facility] Sam[facility]08-22-2022 History of Present illness Narrative* Yogesh Forman [...] and with walking. TREATMENT: Therapeutic Exercise: 1: Rhytec StepOne seat #16 x5 minutes handles at [...] 40 Yogesh Forman PT documented in this encounterTrihealth [facility]08-19-2022 Miscellaneous Notes* Telephone Encounter - Sissy Campbell [...] notify patient. 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 lives on [facility] in [place]) Intake Information: Prescription present Previous Treatment: None Falls Interview: Two or more falls in the last year Falls Intervention: Falls Specific Functional Performance Tests Falls History # of falls in past year: 2 (both at [facility] in [place]) # of falls resulting in an injury [...] Demonstration;Requires Review/AdditionalEducation TREATMENT: PT Treatment Interventions: Therapeutic Exercise;Self-Fpc Management Evaluation Therapeutic Exercise: 1: Pt was [...] and visual cuing. Patient education as noted. Self-Fpc Management: 1: Pt was educated on the [...] 59 Yogesh Forman PT documented in this encounterTrihealth [facility]08-04-2022 Miscellaneous Notes* Telephone Encounter - Amara Owen [...] recheckprior to next OV. documented in this encounterTrihealth Good Samar[facility]07-14-2022 History of Present illness Narrative* Tri Hylton PA-C - 11/11/2021 9:43 AM EDT This note was created using Proberryriter. Subjective Fran Parekh is a 76 year [...] he is leaving for a trip to [place] and wanted to get it taken care [...] of skin of nose Dr. Chowdary in [place] Stage 3a chronic kidney disease (HCC) Venous [...] mg by mouth once daily. CPAP AutoPAP 5-57mhT3C. Mask per preference, tubing, filters, humidity. Lif[employer] Supplies. Dx: G47.33. Fax 30 day compliance report to [phone]. 1 Device 0 MULTIVITAMIN,TX-MINERALS ORAL TAB Take one(1) tablet daily. 60 0 goawdxmx-csgscgaki-rsiosmdyaaropu (CORTISPORIN) 3.5-10,000-1 mg/mL-unit/mL-% otic suspension Use 3 [...] agreeable. Tri Hylton PA-C documented in this encounterTrihealth [facility]06-21-2022 History of Present illness Narrative* Marielle Bruner LPN - 10/19/2021 4:10 PM EDT Patient presents for Shingrix vaccine. Denies any problems at this time. Tolerated injection well. Marielle Bruner LPN documented in this encounterTrihealth [facility]06-21-2022 Miscellaneous Notes* Telephone Encounter - Agnes Del Rosario MD - 10/19/2021 10:04 AM EDT Order approved. * Telephone Encounter - Marielle Bruner LPN - 10/19/2021 8:31 AM EDT Patient scheduled for nurse visit 10/19/21 to receive Shingrix vaccine. Please place order at this time. Marielle Bruner LPN documented in this encounterTrihealth [facility]06-08-2022 Miscellaneous Notes* Telephone Encounter - Meredith Munoz [...] you. Katlyn Melissa RN documented in this encounterTrihealth [facility]03-16-2022 Miscellaneous Notes* Telephone Encounter - Eunice Bruce LPN - 07/14/2021 11:41 AM EDT Lab client services called. A1C added on to recent blood work. Eunice Bruce LPN * Telephone Encounter - Marilia Orozco APRN.CNP - 07/14/2021 10:17 AM EDT See of lab can add on A1c to recent blood work. Marilia Orozco APRN.RUBÉN documented in this encounterTrihealth Good Sam[facility]02-03-2020 History of Past illness Narrative* Problem Noted Date Resolved Date Osteoarthritis of right hip 06/03/201909/2019 Right flank pain 02/04/2013 05/09/2014 Right kidney stone 02/04/2013 05/09/2014 Open fracture of distal phalangeal tuft 08/31/19 12 05/09/2014 Ingrowing nail 11/26/2007 05/09/2014 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 documented as of this encounter (statuses as of 10/06/2021) [facility] of Past illness Narrative* Problem Noted Date Resolved Date Osteoarthritis of right hip 06/03/201909/2019 Right flank pain 02/04/2013 05/09/2014 Right kidney stone 02/04/2013 05/09/2014 Open fracture of distal phalangeal tuft 08/31/19 12 05/09/2014 Ingrowing nail 11/26/2007 05/09/2014 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 documented as of this encounter (statuses as of 10/19/2021) [facility] of [facility] illness Narrative* Problem Noted Date Resolved Date Osteoarthritis of right hip 06/03/20190 09/2019 Right flank pain 02/04/2013 05/09/2014 Right kidney stone 02/04/2013 05/09/2014 Open fracture of distal phalangeal tuft 08/31/19 12 05/09/2014 Ingrowing nail 11/26/2007 05/09/2014 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 documented as of this encounter (statuses as of 11/11/2021) [facility] of [facility] illness Narrative* Problem Noted Date Resolved Date Osteoarthritis of right hip 06/03/201909/2019 Right flank pain 02/04/2013 05/09/2014 Right kidney stone 02/04/2013 05/09/2014 Open fracture of distal phalangeal tuft 08/31/19 12 05/09/2014 Ingrowing nail 11/26/2007 05/09/2014 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 documented as of this encounter (statuses as of 11/19/2021) [facility] of [facility] Narrative* Problem Noted Date Resolved Date Osteoarthritis of right hip 06/03/201909/2019 Right flank pain 02/04/2013 05/09/2014 Right kidney stone 02/04/2013 05/09/2014 Open fracture of distal phalangeal tuft 08/31/1905/09/2014 Ingrowing nail 11/26/2007 05/09/2014 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 documented as of this encounter (statuses as of 12/02/2021) [facility] Narrative* Problem Noted Date Resolved Date Osteoarthritis of right hip 06/03/201909/2019 Right flank pain 02/04/2013 05/09/2014 Right kidney stone 02/04/2013 05/09/2014 Open fracture of distal phalangeal tuft 08/31/19 12 05/09/2014 Ingrowing nail 11/26/2007 05/09/2014 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 documented as of this encounter (statuses as of 12/09/2021) [facility] Narrative* Problem Noted Date Resolved Date Osteoarthritis of right hip 06/03/20190 09/2019 Right flank pain 02/04/2013 05/09/2014 Right kidney stone 02/04/2013 05/09/2014 Open fracture of distal phalangeal tuft 08/31/19 12 05/09/2014 Ingrowing nail 11/26/2007 05/09/2014 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 documented as of this encounter (statuses as of 12/17/2021) [facility] Narrative* Problem Noted Date Resolved Date Osteoarthritis of right hip 06/03/201909/2019 Right flank pain 02/04/2013 05/09/2014 Right kidney stone 02/04/2013 05/09/2014 Open fracture of distal phalangeal tuft 08/31/19 12 05/09/2014 Ingrowing nail 11/26/2007 05/09/2014 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 documented as of this encounter (statuses as of 12/20/2021) [facility] Narrative* Problem Noted Date Resolved Date Osteoarthritis of right hip 06/03/201909/2019 Right flank pain 02/04/2013 05/09/2014 Right kidney stone 02/04/2013 05/09/2014 Open fracture of distal phalangeal tuft 08/31/19 12 05/09/2014 Ingrowing nail 11/26/2007 05/09/2014 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 documented as of this encounter (statuses as of 12/27/2021) [facility] Narrative* Problem Noted Date Resolved Date Osteoarthritis of right hip 06/03/201909/2019 Right flank pain 02/04/2013 05/09/2014 Right kidney stone 02/04/2013 05/09/2014 Open fracture of distal phalangeal tuft 08/31/19 12 05/09/2014 Ingrowing nail 11/26/2007 05/09/2014 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 documented as of this encounter (statuses as of 12/30/2021) [facility] Narrative* Problem Noted Date Resolved Date Osteoarthritis of right hip 06/03/201909/2019 Right flank pain 02/04/2013 05/09/2014 Right kidney stone 02/04/2013 05/09/2014 Open fracture of distal phalangeal tuft 08/31/19 12 05/09/2014 Ingrowing nail 11/26/2007 05/09/2014 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 documented as of this encounter (statuses as of 01/04/2022) [facility] Narrative* Problem Noted Date Resolved Date Osteoarthritis of right hip 06/03/201909/2019 Right flank pain 02/04/2013 05/09/2014 Right kidney stone 02/04/2013 05/09/2014 Open fracture of distal phalangeal tuft 08/31/19 12 05/09/2014 Ingrowing nail 11/26/2007 05/09/2014 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 documented as of this encounter (statuses as of 01/10/2022) [facility] Narrative* Problem Noted Date Resolved Date Osteoarthritis of right hip 06/03/201909/2019 Right flank pain 02/04/2013 05/09/2014 Right kidney stone 02/04/2013 05/09/2014 Open fracture of distal phalangeal tuft 08/31/19 12 05/09/2014 Ingrowing nail 11/26/2007 05/09/2014 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 documented as of this encounter (statuses as of 01/12/2022) [facility] Narrative* Problem Noted Date Resolved Date Osteoarthritis of right hip 06/03/201909/2019 Right flank pain 02/04/2013 05/09/2014 Right kidney stone 02/04/2013 05/09/2014 Open fracture of distal phalangeal tuft 08/31/19 12 05/09/2014 Ingrowing nail 11/26/2007 05/09/2014 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 documented as of this encounter (statuses as of 01/17/2022) [facility] Narrative* Problem Noted Date Resolved Date Osteoarthritis of right hip 06/03/201909/2019 Right flank pain 02/04/2013 05/09/2014 Right kidney stone 02/04/2013 05/09/2014 Open fracture of distal phalangeal tuft 08/31/19 12 05/09/2014 Ingrowing nail 11/26/2007 05/09/2014 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 documented as of this encounter (statuses as of 01/20/2022) [facility] Narrative* Problem Noted Date Resolved Date Osteoarthritis of right hip 06/03/201909/2019 Right flank pain 02/04/2013 05/09/2014 Right kidney stone 02/04/2013 05/09/2014 Open fracture of distal phalangeal tuft 08/31/19 12 05/09/2014 Ingrowing nail 11/26/2007 05/09/2014 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 documented as of this encounter (statuses as of 01/24/2022) [facility] Narrative* Problem Noted Date Resolved Date Osteoarthritis of right hip 06/03/201909/2019 Right flank pain 02/04/2013 05/09/2014 Right kidney stone 02/04/2013 05/09/2014 Open fracture of distal phalangeal tuft 08/31/19 12 05/09/2014 Ingrowing nail 11/26/2007 05/09/2014 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 documented as of this encounter (statuses as of 01/31/2022) [facility]* Problem Noted Date Resolved Date Osteoarthritis of right hip 06/03/201909/2019 Right flank pain 02/04/2013 05/09/2014 Right kidney stone 02/04/2013 05/09/2014 Open fracture of distal phalangeal tuft 08/31/19 12 05/09/2014 Ingrowing nail 11/26/2007 05/09/2014 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 documented as of this encounter (statuses as of 02/03/2022) [facility]arrative* Problem Noted Date Resolved Date Osteoarthritis of right hip 06/03/201909/2019 Right flank pain 02/04/2013 05/09/2014 Right kidney stone 02/04/2013 05/09/2014 Open fracture of distal phalangeal tuft 08/31/19 12 05/09/2014 Ingrowing nail 11/26/2007 05/09/2014 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 documented as of this encounter (statuses as of 02/11/2022) [facility]arrative* Problem Noted Date Resolved Date Osteoarthritis of right hip 06/03/2019 020 09/2019 Right flank pain 02/04/2013 05/09/2014 Right kidney stone 02/04/2013 05/09/2014 Open fracture of distal phalangeal tuft 08/31/19 12 05/09/2014 Ingrowing nail 11/26/2007 05/09/2014 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 documented as of this encounter (statuses as of 04/12/2022) [facility]arrative* Problem Noted Date Resolved Date Osteoarthritis of right hip 06/03/2019 020 09/2019 Right flank pain 02/04/2013 05/09/2014 Right kidney stone 02/04/2013 05/09/2014 Open fracture of distal phalangeal tuft 08/31/19 12 05/09/2014 Ingrowing nail 11/26/2007 05/09/2014 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 documented as of this encounter (statuses as of 04/14/2022) [facility]* Problem Noted Date Resolved Date Osteoarthritis of right hip 06/03/2019 020 09/2019 Right flank pain 02/04/2013 05/09/2014 Right kidney stone 02/04/2013 05/09/2014 Open fracture of distal phalangeal tuft 08/31/19 12 05/09/2014 Ingrowing nail 11/26/2007 05/09/2014 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 documented as of this encounter (statuses as of 05/23/2022) [facility]arrative* Problem Noted Date Resolved Date Osteoarthritis of right hip 06/03/201909/2019 Right flank pain 02/04/2013 05/09/2014 Right kidney stone 02/04/2013 05/09/2014 Open fracture of distal phalangeal tuft 08/31/19 12 05/09/2014 Ingrowing nail 11/26/2007 05/09/2014 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 documented as of this encounter (statuses as of 06/10/2022) [facility]* Problem Noted Date Resolved Date Osteoarthritis of right hip 06/03/201909/2019 Right flank pain 02/04/2013 05/09/2014 Right kidney stone 02/04/2013 05/09/2014 Open fracture of distal phalangeal tuft 08/31/19 12 05/09/2014 Ingrowing nail 11/26/2007 05/09/2014 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 documented as of this encounter (statuses as of 08/09/2022) [facility]arr[facility]* Problem Noted Date Resolved Date Osteoarthritis of right hip 06/03/201909/2019 Right flank pain 02/04/2013 05/09/2014 Right kidney stone 02/04/2013 05/09/2014 Open fracture of distal phalangeal tuft 08/31/19 12 05/09/2014 Ingrowing nail 11/26/2007 05/09/2014 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 documented as of this encounter (statuses as of 11/02/2022) [facility]arr[facility]* Problem Noted Date Resolved Date Osteoarthritis of right hip 06/03/201909/2019 Right flank pain 02/04/2013 05/09/2014 Right kidney stone 02/04/2013 05/09/2014 Open fracture of distal phalangeal tuft 08/31/19 12 05/09/2014 Ingrowing nail 11/26/2007 05/09/2014 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 documented as of this encounter (statuses as of 11/03/2022) [facility]arrative* Problem Noted Date Diagnosed Date Resolved Date Osteoarthritis of right hip 06/03/2019 06/06/2019 Right flank pain 02/04/2013 05/09/2014 Right kidney stone 02/04/2013 5 Open fracture of distal phalangeal tuft 08/31/2011 05/09/2014 Ingrowing nail 11/26/2007 05/09/2014 Plantar fascial fibromatosis 11/02/2006 05/09/2014 documented as of this encounter (statuses as of 11/09/2022) [facility]* Problem Noted Date Diagnosed Date Resolved Date Osteoarthritis of right hip 06/03/2019 06/06/2019 Right flank pain 02/04/2013 05/09/2014 Right kidney stone 02/04/2013 5 Open fracture of distal phalangeal tuft 08/31/2011 05/09/2014 Ingrowing nail 11/26/2007 05/09/2014 Plantar fascial fibromatosis 11/02/2006 05/09/2014 documented as of this encounter (statuses as of 11/09/2022) [facility]* Problem Noted Date Diagnosed Date Resolved Date Osteoarthritis of right hip 06/03/2019 06/06/2019 Right flank pain 02/04/2013 05/09/2014 Right kidney stone 02/04/2013 5 Open fracture of distal phalangeal tuft 08/31/2011 05/09/2014 Ingrowing nail 11/26/2007 05/09/2014 Plantar fascial fibromatosis 11/02/2006 05/09/2014 documented as of this encounter (statuses as of 11/29/2022) [facility]* Problem Noted Date Diagnosed Date Resolved Date Osteoarthritis of right hip 06/03/2019 06/06/2019 Right flank pain 02/04/2013 05/09/2014 Right kidney stone 02/04/2013 5 Open fracture of distal phalangeal tuft 08/31/2011 05/09/2014 Ingrowing nail 11/26/2007 05/09/2014 Plantar fascial fibromatosis 11/02/2006 05/09/2014 documented as of this encounter (statuses as of 12/01/2022) [facility]* Problem Noted Date Diagnosed Date Resolved Date Osteoarthritis of right hip 06/03/2019 06/06/2019 Right flank pain 02/04/2013 05/09/2014 Right kidney stone 02/04/2013 5 Open fracture of distal phalangeal tuft 08/31/2011 05/09/2014 Ingrowing nail 11/26/2007 05/09/2014 Plantar fascial fibromatosis 11/02/2006 05/09/2014 documented as of this encounter (statuses as of 12/07/2022) [facility]* Problem Noted Date Diagnosed Date Resolved Date Osteoarthritis of right hip 06/03/2019 06/06/2019 Right flank pain 02/04/2013 05/09/2014 Right kidney stone 02/04/2013 5 Open fracture of distal phalangeal tuft 08/31/2011 05/09/2014 Ingrowing nail 11/26/2007 05/09/2014 Plantar fascial fibromatosis 11/02/2006 05/09/2014 documented as of this encounter (statuses as of 12/08/2022) [facility]* Problem Noted Date Diagnosed Date Resolved Date Osteoarthritis of right hip 06/03/2019 06/06/2019 Right flank pain 02/04/2013 05/09/2014 Right kidney stone 02/04/2013 5 Open fracture of distal phalangeal tuft 08/31/2011 05/09/2014 Ingrowing nail 11/26/2007 05/09/2014 Plantar fascial fibromatosis 11/02/2006 05/09/2014 documented as of this encounter (statuses as of 12/09/2022) [facility]* Problem Noted Date Diagnosed Date Resolved Date Osteoarthritis of right hip 06/03/2019 06/06/2019 Right flank pain 02/04/2013 05/09/2014 Right kidney stone 02/04/2013 5 Open fracture of distal phalangeal tuft 08/31/2011 05/09/2014 Ingrowing nail 11/26/2007 05/09/2014 Plantar fascial fibromatosis 11/02/2006 05/09/2014 documented as of this encounter (statuses as of 12/16/2022) [facility]* Problem Noted Date Diagnosed Date Resolved Date Osteoarthritis of right hip 06/03/2019 06/06/2019 Right flank pain 02/04/2013 05/09/2014 Right kidney stone 02/04/2013 5 Open fracture of distal phalangeal tuft 08/31/2011 05/09/2014 Ingrowing nail 11/26/2007 05/09/2014 Plantar fascial fibromatosis 11/02/2006 05/09/2014 documented as of this encounter (statuses as of 12/22/2022) [facility]* Problem Noted Date Diagnosed Date Resolved Date Osteoarthritis of right hip 06/03/2019 06/06/2019 Right flank pain 02/04/2013 05/09/2014 Right kidney stone 02/04/2013 5 Open fracture of distal phalangeal tuft 08/31/2011 05/09/2014 Ingrowing nail 11/26/2007 05/09/2014 Plantar fascial fibromatosis 11/02/2006 05/09/2014 documented as of this encounter (statuses as of 12/28/2022) [facility]* Problem Noted Date Diagnosed Date Resolved Date Osteoarthritis of right hip 06/03/2019 06/06/2019 Right flank pain 02/04/2013 05/09/2014 Right kidney stone 02/04/2013 5 Open fracture of distal phalangeal tuft 08/31/2011 05/09/2014 Ingrowing nail 11/26/2007 05/09/2014 Plantar fascial fibromatosis 11/02/2006 05/09/2014 documented as of this encounter (statuses as of 12/29/2022) [facility] History of Past illness Narrative* Problem Noted Date Diagnosed Date Resolved Date Osteoarthritis of right hip 06/03/2019 06/06/2019 Right flank pain 02/04/2013 05/09/2014 Right kidney stone 02/04/2013 5 Open fracture of distal phalangeal tuft 08/31/2011 05/09/2014 Ingrowing nail 11/26/2007 05/09/2014 Plantar fascial fibromatosis 11/02/2006 05/09/2014 documented as of this encounter (statuses as of 01/23/2023) [facility] History of Past illness Narrative* Problem Noted Date Diagnosed Date Resolved Date Osteoarthritis of right hip 06/03/2019 06/06/2019 Right flank pain 02/04/2013 05/09/2014 Right kidney stone 02/04/2013 5 Open fracture of distal phalangeal tuft 08/31/2011 05/09/2014 Ingrowing nail 11/26/2007 05/09/2014 Plantar fascial fibromatosis 11/02/2006 05/09/2014 documented as of this encounter (statuses as of 02/08/2023) [facility] History of Past illness Narrative* Problem Noted Date Diagnosed Date Resolved Date Osteoarthritis of right hip 06/03/2019 06/06/2019 Right flank pain 02/04/2013 05/09/2014 Right kidney stone 02/04/2013 5 Open fracture of distal phalangeal tuft 08/31/2011 05/09/2014 Ingrowing nail 11/26/2007 05/09/2014 Plantar fascial fibromatosis 11/02/2006 05/09/2014 documented as of this encounter (statuses as of 03/08/2023) [facility] History of Past illness Narrative* Problem Noted Date Diagnosed Date Resolved Date Osteoarthritis of right hip 06/03/2019 06/06/2019 Right flank pain 02/04/2013 05/09/2014 Right kidney stone 02/04/2013 5 Open fracture of distal phalangeal tuft 08/31/2011 05/09/2014 Ingrowing nail 11/26/2007 05/09/2014 Plantar fascial fibromatosis 11/02/2006 05/09/2014 documented as of this encounter (statuses as of 03/14/2023) [facility] History of Past illness Narrative* Problem Noted Date Diagnosed Date Resolved Date Osteoarthritis of right hip 06/03/2019 06/06/2019 Right flank pain 02/04/2013 05/09/2014 Right kidney stone 02/04/2013 5 Open fracture of distal phalangeal tuft 08/31/2011 05/09/2014 Ingrowing nail 11/26/2007 05/09/2014 Plantar fascial fibromatosis 11/02/2006 05/09/2014 documented as of this encounter (statuses as of 03/20/2023) [facility] History of Past illness Narrative* Problem Noted Date Diagnosed Date Resolved Date Osteoarthritis of right hip 06/03/2019 06/06/2019 Right flank pain 02/04/2013 05/09/2014 Right kidney stone 02/04/2013 5 Open fracture of distal phalangeal tuft 08/31/2011 05/09/2014 Ingrowing nail 11/26/2007 05/09/2014 Plantar fascial fibromatosis 11/02/2006 05/09/2014 documented as of this encounter (statuses as of 06/16/2023) [facility] History of Past illness Narrative* Problem Noted Date Diagnosed Date Resolved Date Osteoarthritis of right hip 06/03/2019 06/06/2019 Right flank pain 02/04/2013 05/09/2014 Right kidney stone 02/04/2013 5 Open fracture of distal phalangeal tuft 08/31/2011 05/09/2014 Ingrowing nail 11/26/2007 05/09/2014 Plantar fascial fibromatosis 11/02/2006 05/09/2014 documented as of this encounter (statuses as of 06/22/2023) [facility] History of Past illness Narrative* Problem Noted Date Diagnosed Date Resolved Date Osteoarthritis of right hip 06/03/2019 06/06/2019 Right flank pain 02/04/2013 05/09/2014 Right kidney stone 02/04/2013 5 Open fracture of distal phalangeal tuft 08/31/2011 05/09/2014 Ingrowing nail 11/26/2007 05/09/2014 Plantar fascial fibromatosis 11/02/2006 05/09/2014 documented as of this encounter (statuses as of 07/08/2023) [facility] History of Past illness Narrative* Problem Noted Date Diagnosed Date Resolved Date Osteoarthritis of right hip 06/03/2019 06/06/2019 Right flank pain 02/04/2013 05/09/2014 Right kidney stone 02/04/2013 5 Open fracture of distal phalangeal tuft 08/31/2011 05/09/2014 Ingrowing nail 11/26/2007 05/09/2014 Plantar fascial fibromatosis 11/02/2006 05/09/2014 documented as of this encounter (statuses as of 08/01/2023) [facility] note Author [facility] Note Date/Time July 04, 2024 11:0 0am [facility] Medical Records Department [address] [place] [address] Anesthesia Postop Eval I 07/04/24 1059 MR#: [id number] Acct: [id number] Name: FRAN PAREKH Rep #:[id number] : 1945 78 From: Tevin Vizcaino PCP: Dr. Salvador Del Rosario MD Status :REG SD Y Race: C Location: [place] [address] Anesthesia: Postop Eval I Current Vital Signs [...] Tevin Barron Signature: Date CC: ~ Signed [facility] Work Phone: Consult note Author [facility] Note Date/Time October 07, 2024 12:50 pm [facility] Medical Records Department [address] [place] [address] Anesthesia Postop Eval I 10/07/24 1249 MR#: [id number] Acct: [id number] Name: FRAN PAREKH Rep #:[id number] : 1945 79 From: Tevin Vizcaino PCP: Dr. Salvador Del Rosario MD Status :REG SDC Y Race: C Location: [place] [address] Anesthesia: Postop Eval I Current Vital Signs [...] Tevin Barron Signature: Date CC: ~ Signed [facility] Work Phone: Consult note Author Tevin Vizcaino [facility] Note Date/Time December 26, 2024 2: 00pm [facility] Medical Records Department [address] [place] [address] Anesthesia Postop Eval I 12/26/24 1246 MR#: [id number] Acct: [id number] Name: MARINOFRAN KAY Rep #:[id number] : 1945 79 From: Tevin Vizcaino PCP: Dr. Salvador Del Rosario MD Status :REG [facility] Y Race: C Location: [place] [address] Anesthesia: Postop Eval I Current Vital Signs [...] Tevin Barron Signature: Date CC: ~ Signed [facility] Work Phone: Consult note Author Freida Martino [facility] Note Date/Time December 26, 2024 2: 00pm [facility] Medical Records Department [address] [place] [address] Anesthesia Postop Eval II 12/26/24 1345 MR#: [id number] Acct: [id number] Name: FRAN PAREKH Rep #:[id number] : 1945 79 From: Freida ha CRNA PCP: Dr. Salvador Del Rosario MD Status :REG [facility] Y Race: C Location: [place] [address] Anesthesia Postop Eval I Sum Postop Eval [...] CRNA Cosigner Signature: Date CC: ~ Signed [facility] Work Phone: Discharge summary Author Manuel Alvarez [facility] Note Date/Time October 22, 2024 5:[address] [facility] Medical Records Department [address] [place] [address] Emergency Department Summary 10/22/24 MR#: [id number] Acct: [id number] Name: FRAN PAREKH Rep #:[id number] : [...] stent was placed back in. [facility] Medical History Carpal tunnel syndrome on both sides Cancer Wears glasses Thyroid disease Shingles Inguinal hernia Cardiology follow-up encounter History of stress test Choledocholithiasis Current use of usp 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 Elevated liver enzymes Pancreatic mass High [...] 88.6 H Lymph % (Auto) 4.8 L [place] % (Auto) 5.8 Eos % (Auto) 0.1 [...] No evidence for acute abnormality. Reading Location: [facility] Abdomen/Pelvis CT 10/22/24 04:02 IMPRESSION: Unchanged benign [...] Management Discussion w/another healthcare provider: Hospitalist and Surveillance Specialist (GI DrDarrel Friend) Discharge Plan Dx/Rx/DC Orders Clinical Impression: Fever, Vomiting, History of biliary stent insertion Disposition Disposition: Acute Care Hospital [facility] What to do if you have Problems For any increased pain, shortness of breath, bleeding, nausea or vomiting, chestpain, or any unexpected problems, contact your Primary Care Provider. Call [facility] ([phone]) or report to the closest Emergency Room. Call 911 if necessary. 10/22/24 0502 <Electronically signed by Manuel Alvarez MD> Cosigner Signature (if applicable): CC: Dr. Salvador Del Rosario MD ~ Signed [facility] Work Phone: Discharge summary Author Marleny Tena [facility] Note Date/Time October 24, 2024 12:[address] [facility] Medical Records Department [address] [place] [address] Instructions for Home/Discharge Instructions 10/24/24 1233 MR#: [id number] Acct: [id number] Name: FRAN PAREKH Rep #:[id number] : [...] can be placed): Home, Self Care 10/24/24 2172<Electronically signed by Marleny Tena DO>Marleny Tena DO CC: Dr. Salvador Del Rosario MD; Dr. Werner Nunn DO ~ Signed [facility] Work Phone: evaluation noteN/ADept. of Dermatology Evaluation note* Diagnosis Cervical radiculopathy Brachial neuritis or radiculitis nos documented in this encounter [facility] note* Diagnosis Need for vaccination- Primary Need for prophylactic vaccination and inoculation against unspecified single disease documented in this encounter [facility] note* Diagnosis Need for vaccination- Primary Need for prophylactic vaccination and inoculation against unspecified single disease documented in this encounter [facility] note* Diagnosis Acute otitis externa of right ear, unspecified type- Primary [facility] Diagnosis Elevated glucose- Primary Other abnormal glucose documented in this encounter [facility] note* Diagnosis Stage 3b chronic kidney disease (HCC)- Primary documented [facility] this encounter [facility]* Diagnosis Chronic bilateral low back pain with bilateral sciatica At high risk for falls Personal history of fall Age-related physical debility Senility without mention of psychosis Personal history of fall documented in this encounter [facility] noteNo assessment information availableWOhioHealth [facility] Work Phone: Evaluation note* Diagnosis ASHD (arteriosclerotic heart disease) Coronary atherosclerosis of unspecified type of vessel, robinson or graft Hyperlipidemia LDL goal <100 Other and unspecified hyperlipidemia documented in this encounter [facility] note* Diagnosis Chronic bilateral low back pain with bilateral sciatica- Primary Personal history of fall Age-related physical debility Senility without mention of psychosis documented in this encounter 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) Morbid obesity Acquired hypothyroidism Unspecified hypothyroidism Advance directive discussed with patient Other specified counseling MARTIN (obstructive sleep apnea) Obstructive sleep apnea (adult) (pediatric) [facility] Diagnosis URI, acute- Primary Acute [...] Coronary atherosclerosis of unspecified type of vessel, robinson or graft [facility] Diagnosis Essential hypertension, benign Stage 3b chronic kidney disease (HCC) Bilateral leg edema Edema ASHD (arteriosclerotic heart disease) Coronary atherosclerosis of unspecified type of vessel, robinson or graft documented in this encounter [facility] [...] Coronary atherosclerosis of unspecified type of vessel, robinson or graft Hyperlipidemia LDL goal <100 Other [...] sciatica- Primary [facility] Diagnosis Essential hypertension, benign [facility] Diagnosis ASHD (arteriosclerotic heart disease) Coronary atherosclerosis of unspecified type of vessel, robinson or graft Hyperlipidemia LDL goal <100 Other and unspecified hyperlipidemia [facility] Diagnosis Essential hypertension, benign- Primary [facility] Diagnosis Essential hypertension, benign- Primary Prediabetes Other abnormal glucose [facility] Diagnosis Essential hypertension, benign [facility] Diagnosis Essential hypertension, benign [facility] Diagnosis Rash- Primary Rash and other nonspecific skin eruption [facility] Diagnosis Acute saddle pulmonary embolism, unspecified whether acute cor pulmonale present (HCC)- Primary [facility] Diagnosis Acute saddle pulmonary embolism, unspecified whether acute cor pulmonale present (HCC)- Primary Pulmonary HTN (HCC) Other chronic pulmonary heart diseases Acute deep vein thrombosis (DVT) of proximal vein of right lower extremity (HCC) Essential hypertension, benign MARTIN (obstructive sleep apnea) Obstructive sleep apnea (adult) (pediatric) Right leg swelling Swelling of limb [facility] Diagnosis Acute saddle pulmonary embolism, unspecified whether acute cor pulmonale present (HCC)- Primary Unsteady gait when walking [facility] Diagnosis Other secondary pulmonary hypertension (HCC)- Primary History of pulmonary embolism Personal history of pulmonary embolism [facility] Diagnosis Other secondary pulmonary hypertension (HCC) [facility] Diagnosis Pre-operative examination- Primary Preoperative examination, unspecified Primary osteoarthritis of right hip Primary localized osteoarthrosis, pelvic region and thigh 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 Hyperlipidemia LDL goal <100 Other and unspecified hyperlipidemia Essential hypertension, benign ASHD (arteriosclerotic heart disease) Coronary atherosclerosis of unspecified type of vessel, robinson or graft Right lower lobe lung mass [...] gait when walking [facility] Diagnosis Pre-operative examination- Primary Preoperative examination, unspecified Primary osteoarthritis of right hip Primary localized osteoarthrosis, pelvic region and thigh 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 Hyperlipidemia LDL goal <100 Other and unspecified hyperlipidemia Essential hypertension, benign ASHD (arteriosclerotic heart disease) Coronary atherosclerosis of unspecified type of vessel, robinson or graft Right lower lobe lung mass [...] venous thrombosis and embolism Current use of usp 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 Long-term (current) use of anticoagulants BMI 38.0-38.9,adult Body Mass Index 38.0-38.9, adult Other secondary pulmonary hypertension (HCC) Lower extremity edema Edema Stage 3a chronic kidney disease (HCC) [facility] Diagnosis Pre-operative examination- Primary Preoperative examination, unspecified Primary osteoarthritis of right hip Primary localized osteoarthrosis, pelvic region and thigh 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 Hyperlipidemia LDL goal <100 Other and unspecified hyperlipidemia Essential hypertension, benign ASHD (arteriosclerotic heart disease) Coronary atherosclerosis of unspecified type of vessel, robinson or graft Right lower lobe lung mass [...] Abnormality of gait [facility] this [facility] Diagnosis Pre-operative examination- Primary Preoperative examination, unspecified Primary osteoarthritis of right hip Primary localized osteoarthrosis, pelvic region and thigh 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 Hyperlipidemia LDL goal <100 Other and unspecified hyperlipidemia Essential hypertension, benign ASHD (arteriosclerotic heart disease) Coronary atherosclerosis of unspecified type of vessel, robinson or graft Right lower lobe lung mass [...] Essential hypertension, benign [facility] Diagnosis Pre-operative examination- Primary Preoperative examination, unspecified Primary osteoarthritis of right hip Primary localized osteoarthrosis, pelvic region and thigh 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 Hyperlipidemia LDL goal <100 Other and unspecified hyperlipidemia Essential hypertension, benign ASHD (arteriosclerotic heart disease) Coronary atherosclerosis of unspecified type of vessel, robinson or graft Right lower lobe lung mass [...] Abnormality of gait [facility] this [facility] Diagnosis Pre-operative examination- Primary Preoperative examination, unspecified Primary osteoarthritis of right hip Primary localized osteoarthrosis, pelvic region and thigh 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 Hyperlipidemia LDL goal <100 Other and unspecified hyperlipidemia Essential hypertension, benign ASHD (arteriosclerotic heart disease) Coronary atherosclerosis of unspecified type of vessel, robinson or graft Right lower lobe lung mass [...] Abnormality of gait [facility] encounter [facility] Diagnosis Pre-operative examination- Primary Preoperative examination, unspecified Primary osteoarthritis of right hip Primary localized osteoarthrosis, pelvic region and thigh 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 Hyperlipidemia LDL goal <100 Other and unspecified hyperlipidemia Essential hypertension, benign ASHD (arteriosclerotic heart disease) Coronary atherosclerosis of unspecified type of vessel, robinson or graft Right lower lobe lung mass [...] with bilateral sciatica [facility] Diagnosis Pre-operative examination- Primary Preoperative examination, unspecified Primary osteoarthritis of right hip Primary localized osteoarthrosis, pelvic region and thigh 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 Hyperlipidemia LDL goal <100 Other and unspecified hyperlipidemia Essential hypertension, benign ASHD (arteriosclerotic heart disease) Coronary atherosclerosis of unspecified type of vessel, robinson or graft Right lower lobe lung mass [...] of pulmonary embolism [facility] Diagnosis Pre-operative examination- Primary Preoperative examination, unspecified Primary osteoarthritis of right hip Primary localized osteoarthrosis, pelvic region and thigh 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 Hyperlipidemia LDL goal <100 Other and unspecified hyperlipidemia Essential hypertension, benign ASHD (arteriosclerotic heart disease) Coronary atherosclerosis of unspecified type of vessel, robinson or graft Right lower lobe lung mass [...] Abnormality of gait documented in this encounter [facility]* Diagnosis Pre-operative examination- Primary Preoperative examination, unspecified Primary osteoarthritis of right hip Primary localized osteoarthrosis, pelvic region and thigh 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 Hyperlipidemia LDL goal <100 Other and unspecified hyperlipidemia Essential hypertension, benign ASHD (arteriosclerotic heart disease) Coronary atherosclerosis of unspecified type of vessel, robinson or graft Right lower lobe lung mass [...] apnea (adult) (pediatric) documented in this encounter [facility]* Diagnosis Pre-operative examination- Primary Preoperative examination, unspecified Primary osteoarthritis of right hip Primary localized osteoarthrosis, pelvic region and thigh 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 Hyperlipidemia LDL goal <100 Other and unspecified hyperlipidemia Essential hypertension, benign ASHD (arteriosclerotic heart disease) Coronary atherosclerosis of unspecified type of vessel, robinson or graft Right lower lobe lung mass [...] Primary Generalized pain [facility] encounter [facility] Diagnosis Pre-operative examination- Primary Preoperative examination, unspecified Primary osteoarthritis of right hip Primary localized osteoarthrosis, pelvic region and thigh 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 Hyperlipidemia LDL goal <100 Other and unspecified hyperlipidemia Essential hypertension, benign ASHD (arteriosclerotic heart disease) Coronary atherosclerosis of unspecified type of vessel, robinson or graft Right lower lobe lung mass [...] of right knee [facility] encounter [facility] Diagnosis Pre-operative examination- Primary Preoperative examination, unspecified Primary osteoarthritis of right hip Primary localized osteoarthrosis, pelvic region and thigh 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 Hyperlipidemia LDL goal <100 Other and unspecified hyperlipidemia Essential hypertension, benign ASHD (arteriosclerotic heart disease) Coronary atherosclerosis of unspecified type of vessel, robinson or graft Right lower lobe lung mass [...] right lower leg [facility] encounter [facility] Diagnosis Pre-operative examination- Primary Preoperative examination, unspecified Primary osteoarthritis of right hip Primary localized osteoarthrosis, pelvic region and thigh 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 Hyperlipidemia LDL goal <100 Other and unspecified hyperlipidemia Essential hypertension, benign ASHD (arteriosclerotic heart disease) Coronary atherosclerosis of unspecified type of vessel, robinson or graft Right lower lobe lung mass [...] of unspecified site [facility] Diagnosis Pre-operative examination- Primary Preoperative examination, unspecified Primary osteoarthritis of right hip Primary localized osteoarthrosis, pelvic region and thigh 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 Hyperlipidemia LDL goal <100 Other and unspecified hyperlipidemia Essential hypertension, benign ASHD (arteriosclerotic heart disease) Coronary atherosclerosis of unspecified type of vessel, robinson or graft Right lower lobe lung mass [...] of right knee [facility] Diagnosis Pre-operative examination- Primary Preoperative examination, unspecified Primary osteoarthritis of right hip Primary localized osteoarthrosis, pelvic region and thigh 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 Hyperlipidemia LDL goal <100 Other and unspecified hyperlipidemia Essential hypertension, benign ASHD (arteriosclerotic heart disease) Coronary atherosclerosis of unspecified type of vessel, robinson or graft Right lower lobe lung mass [...] of right knee documented in this encounter [facility] Diagnosis Pre-operative examination- Primary Preoperative examination, unspecified Primary osteoarthritis of right hip Primary localized osteoarthrosis, pelvic region and thigh 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 Hyperlipidemia LDL goal <100 Other and unspecified hyperlipidemia Essential hypertension, benign ASHD (arteriosclerotic heart disease) Coronary atherosclerosis of unspecified type of vessel, robinson or graft Right lower lobe lung mass [...] right lower leg documented in this encounter [facility] Diagnosis Pre-operative examination- Primary Preoperative examination, unspecified Primary osteoarthritis of right hip Primary localized osteoarthrosis, pelvic region and thigh 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 Hyperlipidemia LDL goal <100 Other and unspecified hyperlipidemia Essential hypertension, benign ASHD (arteriosclerotic heart disease) Coronary atherosclerosis of unspecified type of vessel, robinson or graft Right lower lobe lung mass [...] Swelling of [facility] Diagnosis Pre-operative examination- Primary Preoperative examination, unspecified Primary osteoarthritis of right hip Primary localized osteoarthrosis, pelvic region and thigh 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 Hyperlipidemia LDL goal <100 Other and unspecified hyperlipidemia Essential hypertension, benign ASHD (arteriosclerotic heart disease) Coronary atherosclerosis of unspecified type of vessel, robinson or graft Right lower lobe lung mass [...] Swelling of limb [facility] Diagnosis Pre-operative examination- Primary Preoperative examination, unspecified Primary osteoarthritis of right hip Primary localized osteoarthrosis, pelvic region and thigh 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 Hyperlipidemia LDL goal <100 Other and unspecified hyperlipidemia Essential hypertension, benign ASHD (arteriosclerotic heart disease) Coronary atherosclerosis of unspecified type of vessel, robinson or graft Right lower lobe lung mass [...] Essential hypertension, benign [facility] Diagnosis Pre-operative examination- Primary Preoperative examination, unspecified Primary osteoarthritis of right hip Primary localized osteoarthrosis, pelvic region and thigh 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 Hyperlipidemia LDL goal <100 Other and unspecified hyperlipidemia Essential hypertension, benign ASHD (arteriosclerotic heart disease) Coronary atherosclerosis of unspecified type of vessel, robinson or graft Right lower lobe lung mass [...] wall, subsequent encounter [facility] Diagnosis Pre-operative examination- Primary Preoperative examination, unspecified Primary osteoarthritis of right hip Primary localized osteoarthrosis, pelvic region and thigh 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 Hyperlipidemia LDL goal <100 Other and unspecified hyperlipidemia Essential hypertension, benign ASHD (arteriosclerotic heart disease) Coronary atherosclerosis of unspecified type of vessel, robinson or graft Right lower lobe lung mass [...] Essential hypertension, benign [facility] Diagnosis Xerosis cutis- Primary Other specified disease of sebaceous glands 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 Multiple benign nevi Lentigo Other dyschromia Seborrheic keratosis documented in this encounter [facility] Work Phone: Evaluation note* Diagnosis Pre-operative examination- Primary Preoperative examination, unspecified Primary osteoarthritis of right hip Primary localized osteoarthrosis, pelvic region and thigh 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 Hyperlipidemia LDL goal <100 Other and unspecified hyperlipidemia Essential hypertension, benign ASHD (arteriosclerotic heart disease) Coronary atherosclerosis of unspecified type of vessel, robinson or graft Right lower lobe lung mass [...] Essential hypertension, benign [facility] Diagnosis Pre-operative examination- Primary Preoperative examination, unspecified Primary osteoarthritis of right hip Primary localized osteoarthrosis, pelvic region and thigh 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 Hyperlipidemia LDL goal <100 Other and unspecified hyperlipidemia Essential hypertension, benign ASHD (arteriosclerotic heart disease) Coronary atherosclerosis of unspecified type of vessel, robinson or graft Right lower lobe lung mass [...] Essential hypertension, benign [facility] Diagnosis Pre-operative examination- Primary Preoperative examination, unspecified Primary osteoarthritis of right hip Primary localized osteoarthrosis, pelvic region and thigh 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 Hyperlipidemia LDL goal <100 Other and unspecified hyperlipidemia Essential hypertension, benign ASHD (arteriosclerotic heart disease) Coronary atherosclerosis of unspecified type of vessel, robinson or graft Right lower lobe lung mass [...] of pulmonary embolism [facility] Diagnosis Pre-operative examination- Primary Preoperative examination, unspecified Primary osteoarthritis of right hip Primary localized osteoarthrosis, pelvic region and thigh 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 Hyperlipidemia LDL goal <100 Other and unspecified hyperlipidemia Essential hypertension, benign ASHD (arteriosclerotic heart disease) Coronary atherosclerosis of unspecified type of vessel, robinson or graft Right lower lobe lung mass [...] Primary Unspecified hypothyroidism [facility] Diagnosis Pre-operative examination- Primary Preoperative examination, unspecified Primary osteoarthritis of right hip Primary localized osteoarthrosis, pelvic region and thigh 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 Hyperlipidemia LDL goal <100 Other and unspecified hyperlipidemia Essential hypertension, benign ASHD (arteriosclerotic heart disease) Coronary atherosclerosis of unspecified type of vessel, robinson or graft Right lower lobe lung mass [...] abdominal location- Primary [facility] Diagnosis Pre-operative examination- Primary Preoperative examination, unspecified Primary osteoarthritis of right hip Primary localized osteoarthrosis, pelvic region and thigh 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 Hyperlipidemia LDL goal <100 Other and unspecified hyperlipidemia Essential hypertension, benign ASHD (arteriosclerotic heart disease) Coronary atherosclerosis of unspecified type of vessel, robinson or graft Right lower lobe lung mass [...] in joint, forearm documented in this encounter [facility]* Diagnosis Pre-operative examination- Primary Preoperative examination, unspecified Primary osteoarthritis of right hip Primary localized osteoarthrosis, pelvic region and thigh 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 Hyperlipidemia LDL goal <100 Other and unspecified hyperlipidemia Essential hypertension, benign ASHD (arteriosclerotic heart disease) Coronary atherosclerosis of unspecified type of vessel, robinson or graft Right lower lobe lung mass [...] in joint, forearm [facility] Diagnosis Pre-operative examination- Primary Preoperative examination, unspecified Primary osteoarthritis of right hip Primary localized osteoarthrosis, pelvic region and thigh 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 Hyperlipidemia LDL goal <100 Other and unspecified hyperlipidemia Essential hypertension, benign ASHD (arteriosclerotic heart disease) Coronary atherosclerosis of unspecified type of vessel, robinson or graft Right lower lobe lung mass [...] origin Fever, unspecified [facility] Diagnosis Pre-operative examination- Primary Preoperative examination, unspecified Primary osteoarthritis of right hip Primary localized osteoarthrosis, pelvic region and thigh 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 Hyperlipidemia LDL goal <100 Other and unspecified hyperlipidemia Essential hypertension, benign ASHD (arteriosclerotic heart disease) Coronary atherosclerosis of unspecified type of vessel, robinson or graft Right lower lobe lung mass [...] apnea (adult) (pediatric) documented [facility] Diagnosis Pre-operative examination- Primary Preoperative examination, unspecified Primary osteoarthritis of right hip Primary localized osteoarthrosis, pelvic region and thigh 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 Hyperlipidemia LDL goal <100 Other and unspecified hyperlipidemia Essential hypertension, benign ASHD (arteriosclerotic heart disease) Coronary atherosclerosis of unspecified type of vessel, robinson or graft Right lower lobe lung mass [...] Essential hypertension, benign [facility] Diagnosis Pre-operative examination- Primary Preoperative examination, unspecified Primary osteoarthritis of right hip Primary localized osteoarthrosis, pelvic region and thigh 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 Hyperlipidemia LDL goal <100 Other and unspecified hyperlipidemia Essential hypertension, benign ASHD (arteriosclerotic heart disease) Coronary atherosclerosis of unspecified type of vessel, robinson or graft Right lower lobe lung mass [...] Essential hypertension, benign [facility] Diagnosis Nevus- Primary Benign neoplasm of skin, site unspecified Lentigo Other dyschromia Seborrheic keratosis Screening exam for skin cancer Screening for malignant neoplasm of the skin Xerosis cutis Other specified disease of sebaceous glands History of nonmelanoma skin cancer Neoplasm of uncertain behavior of skin Venous stasis dermatitis, unspecified laterality documented in this encounter [facility] Work Phone: History and physical note Author Alex Sher [facility] Note Date/Time July 04, 2024 10:0 1am [facility] Medical Records Department [address] [place] [address] History & Physical Exam 07/04/24 0957 MR#: [id number] Acct: [id number] Name: FRAN PAREKH Rep #:[id number] : [id number] 78 From: Alex Sher DO PCP: Dr. Salvador Del Rosario MD Status :[facility] Location: [place] [address] HPI - General General Date of Admission: 07/04/24 Date of Service: 07/04/24 Chief Complaint: Biliary stent removal HPI Narrative FRAN PAREKH, is a 78 M who presents for ERCP with stent removal. [facility] hospitalization 03.26.24 - 03.28.24 dizziness - consulted [...] know when his stent will be removed. [facility] Medical History Carpal tunnel syndrome on both sides Cancer Wears glasses Thyroid disease Shingles Inguinal hernia Cardiology follow-up encounter History of stress test Choledocholithiasis Current use of buttermaker continuous churn 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 Elevated liver enzymes Pancreatic mass High [...] Del Rosario MD; Alex Sher DO~ Signed [facility] Work Phone: Reason for referral (narrative)* Name Reason for referral NA NA Dept. of Dermatology [place] for referral (narrative)* Diagnostic Procedure Only (Routine) - Closed Specialty Diagnoses / Procedures Referred By Contac t Referred To Contact MOLECULAR & FUNCTIONAL IMAGING Diagnoses Other secondary pulmonary hypertension (HCC) Procedures NM LUNG VENT / PERF VQ PULMONARY VENTILATION & [place] [address] [place] [address] Molecular & Functional Imaging [address] [place] [address] Referral ID Status Reason Start Date Expiration Date V isits Requested Visits Authorized [id number] Closed Auto-Generate d Referral 11/09/2023 12/08/2024 1 1 [facility] for referral (narrative)* Diagnostic Procedure Only (Routine) - Closed Specialty Diagnoses / Procedures Referred By Contac t Referred To Contact XR IMAGING Diagnoses Chronic bilateral low back pain with bilateral sciatica Procedures XR LUMBAR GENERAL 3V AP/LAT/L5-S1 RADEX SPINE LUMBOSACRAL 2/3 VIEWS PodlogMarilia stuart APRN.CNP [address] [place] [address] [place] [id number] Referral ID Status Reason Start Date Expiration Date V isits Requested Visits Authorized [id number] Closed Auto-Generate d Referral 05/15/2023 06/13/2024 1 1 [facility] for referral (narrative)* Diagnostic Procedure Only (Urgent) - Closed Specialty Diagnoses / Procedures Referred By Contac t Referred To Contact US IMAGING Diagnoses Pain and swelling of right lower leg Procedures US DVT LOWER RIGHT DUP-SCAN XTR VEINS UNILATERAL/LIMITED STUDY PodlogMarilia stuart APRN.[address] [place] [address] [place] [address] Referral ID Status Reason Start Date Expiration Date V isits Requested Visits Authorized [id number] Closed Auto-Generate d Referral 01/19/2024 02/17/2025 1 1 [facility] for referral (narrative)* Diagnostic Procedure Only (Urgent) - Closed Specialty Diagnoses / Procedures Referred By Panda richards Referred To Contact US IMAGING Diagnoses Pain and swelling of right lower leg Procedures US DVT LOWER RIGHT DUP-SCAN XTR VEINS UNILATERAL/LIMITED STUDY LashandalogMarilia stuart APRN.[address] [place] [address] [place] [address] Referral ID Status Reason Start Date Expiration Date V isits Requested Visits Authorized [id number] Closed Auto-Generate d Referral 01/19/2024 02/17/2025 1 1 [facility] for referral (narrative)No reason for referral information available[facility]Ohio[facility] Work Phone: Reason for visit Narrative* Outpatient Procedure (Routine) - Closed Specialty Diagnoses / Procedures Referred By Panda richards Referred To Contact [facility] Diagnoses Essential hypertension, benign Stage 3b chronic kidney disease (HCC) Bilateral leg edema ASHD (arteriosclerotic heart disease) Procedures ECHO ECHO TTHRC R-T 2D W/WOM-MODE COMPL SPEC&COLR D PodlogMarilia stuart APRN.[address] [place] [address] [facility] [place] [address] [place] [address] Referral ID Status Reason Start Date Expiration Date V isits Requested Visits Authorized [id number] Closed Auto-Generate d Referral 11/02/2022 11/02/2023 1 1 [facility] for visit Narrative* Diagnostic Procedure Only (Routine) - Closed Specialty Diagnoses / Procedures Referred By Contac t Referred To Contact MOLECULAR & FUNCTIONAL IMAGING Diagnoses Other secondary pulmonary hypertension (HCC) Procedures NM LUNG VENT / PERF VQ PULMONARY VENTILATION & PERFUSION IMAGING Victor Manuel Burrows, [address] [place] [address] Molecular & Functional Imaging [address] [place] [address] Referral ID Status Reason Start Date Expiration Date V isits Requested Visits Authorized [id number] Closed Auto-Generate d Referral 11/09/2023 12/08/2024 1 1 [facility] for visit Narrative* Diagnostic Procedure Only (Routine) - Closed Specialty Diagnoses / Procedures Referred By Contac t Referred To Contact XR IMAGING Diagnoses Chronic bilateral low back pain with bilateral sciatica Procedures XR LUMBAR GENERAL 3V AP/LAT/L5-S1 RADEX SPINE LUMBOSACRAL 2/3 VIEWS Podlogar, SELENE Capellan.[address] [place] [address] [place] [id number] Referral ID Status Reason Start Date Expiration Date V isits Requested Visits Authorized [id number] Closed Auto-Generate d Referral 05/15/2023 06/13/2024 1 1 [facility] for visit Narrative* Outpatient Procedure (Routine) - Closed Specialty Diagnoses / Procedures Referred By Katieac t Referred To Contact [facility] Diagnoses Other secondary pulmonary hypertension (HCC) History of pulmonary embolism Procedures ECHO ECHO TTHRC R-T 2D W/WOM-MODE COMPL SPEC&[place] [address] [place] [address] [facility] [place] [address] [place] [address] Referral ID Status Reason Start Date Expiration Date V isits Requested Visits Authorized [id number] Closed Auto-Generate d Referral 11/09/2023 11/08/2024 1 1 [facility] for visit Narrative* Diagnostic Procedure Only (Routine) - Closed Specialty Diagnoses / Procedures Referred By Contac t Referred To Contact XR IMAGING Diagnoses Acute pain of right knee Procedures XR KNEE GENERAL 4V AP BOTH/PA BOTH/LAT/MERC RIGHT RADIOLOGIC EXAM KNEE COMPLETE 4/[place] [address] [address] [place] [address] [place] [address] Referral ID Status Reason Start Date Expiration Date V isits Requested Visits Authorized [id number] Closed Auto-Generate d Referral 01/18/2024 02/16/2025 1 1 [facility] for visit Narrative* Diagnostic Procedure Only (Urgent) - Closed Specialty Diagnoses / Procedures Referred By Contac t Referred To Contact US IMAGING Diagnoses Pain and swelling of right lower leg Procedures US DVT LOWER RIGHT DUP-SCAN XTR VEINS UNILATERAL/LIMITED STUDY PodlogMarilia stuart APRN.[address] [place] [address] [place] [address] Referral ID Status Reason Start Date Expiration Date V isits Requested Visits Authorized [id number] Closed Auto-Generate d Referral 01/19/2024 02/17/2025 1 1 [facility] for visit Narrative* Diagnostic Procedure Only (Urgent) - Closed Specialty Diagnoses / Procedures Referred By Contac t Referred To Contact XR IMAGING Diagnoses Left wrist pain Procedures XR WRIST GENERAL 3V PA/LAT/OBL LEFT RADEX WRIST COMPLETE MINIMUM 3 VIEWS PodlogarMarilia, [employer] ENGINEER.[address] [place] [address] Phone: tel: fax: [place] [address] Referral ID Status Reason Start Date Expiration Date V isits Requested Visits Authorized [id number] Closed Auto-Generate d Referral 10/08/2024 11/07/2025 1 1 [facility] Advance Directives No Advanced Directives Records Found Date Activated Date Inactivated Comments 10/23/2023 8:12 AM 10/27/2023 7:50 PM Question Answer Comments Full Code Order Discussed With: Patient Date Activated Date Inactivated Comments 06/08/2019 11:30 AM 01/17/2020 7:58 AM Documents on File Type Date Recorded 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 Advance Directive(s) 03/04/2020 7:50 AM [...] September 04, 2016 12 :17pm Power of Instrumentation Manager No September 04, 2016 12:17pm Date Activated [...] Will Yes March 26, 8:34am Power of Instrumentation Manager Yes March 26, 2024 8:34am Name of Medical Power of Instrumentation Manager Kyler Hernandez March 26, 2024 8:34am Living Will Yes July 02, 2024 2:53pm Power of Instrumentation Manager Yes July 02 2:53pm Name of Medical Power of Instrumentation Manager - ESTEFANIA ANGUIANO July 02, 2024 2:53pm Advance Directive Response Recorded Date/ Time Do you have a Healthcare Pow er of Instrumentation Manager? No August 31, 2024 11:32am Living Will Yes July 02, 2024 3:53pm Do you have a Healthcare Pow er of Instrumentation Manager? Yes July 02, 2024 3:53pm Name of Medical Power of Instrumentation Manager - ESTEFANIA ANGUIANO July 02, 2024 3:53pm Advance Directive Response Recorded Date/ Time Do you have a Healthcare Pow er of Instrumentation Manager? Yes October 03, 2024 10:22am Do you have a Healthcare Pow er of Instrumentation Manager? No August 31, 2024 11:32am Living Will Yes July 02, 2024 3:53pm Do you have a Healthcare Pow er of Instrumentation Manager? Yes July 02, 2024 3:53pm Name of Medical Power of Instrumentation Manager - ESTEFANIA ANGUIANO July 02, 2024 3:53pm Advance Directive Response Recorded Date/ Time Do you have a Healthcare Pow er of Instrumentation Manager? Yes October 03, 2024 10:22am Do you have a Healthcare Pow er of Instrumentation Manager? No August 31, 2024 11:32am Do you have a Healthcare Pow er of Instrumentation Manager? Yes October 21, 2024 11:17pm Living Will Yes July 02, 2024 3:53pm Do you have a Healthcare Pow er of Instrumentation Manager? Yes July 02, 2024 3:53pm Name of Medical Power of Instrumentation Manager - ESTEFANIA ANGUIANO July 02, 2024 3:53pm Advance Directive Response Recorded Date/ Time Do you have a Healthcare Pow er of Instrumentation Manager? Yes October 03, 2024 10:22am Do you have a Healthcare Pow er of Instrumentation Manager? No August 31, 2024 11:32am Do you have a Healthcare Pow er of Instrumentation Manager? Yes October 22, 2024 5:50am Living Will Yes July 02, 2024 3:53pm Do you have a Healthcare Pow er of Instrumentation Manager? Yes July 02, 2024 3:53pm Name of Medical Power of Instrumentation Manager - ESTEFANIA ANGUIANO July 02, 2024 3:53pm Advance Directive Response Recorded Date/ Time Do you have a Healthcare Power of Instrumentation Manager? Yes October 03, 2024 10:22am Do you have a Healthcare Power of Instrumentation Manager? No August 31, 2024 11:32am Do you have a Healthcare Power of Instrumentation Manager? Yes October 22, 2024 5:50am Advance Directive Response Recorded Date/ Time Do you have a Healthcare Power of Instrumentation Manager? Yes October 03, 2024 10:22am Do you have a Healthcare Power of Instrumentation Manager? No August 31, 2024 11:32am Do you have a Healthcare Power of Instrumentation Manager? Yes October 22, 2024 5:50am Do you have a Healthcare Power of Instrumentation Manager? Yes December 25, 2024 10:12am Health Concerns [...] EVALUATION HIGH COMPLEX 45 MINS Podlogar, Marilia, [employer] ENGINEER.[address] [place] [address] [facility] [address] [address] Referral ID Status Reason Start Date Expiration Date Visits Requested Visits Authorized [id number] Authorized PCP Requested Referral Auto-Generate d Referral 11/02/2022 11/02/2023 99 99 Specialty Diagnoses / Procedures Referred By Contac t Referred To Contact [facility] Diagnoses Essential hypertension, benign Stage 3b chronic kidney disease (HCC) Bilateral leg edema ASHD (arteriosclerotic heart disease) Procedures ECHO ECHO TTHRC R-T 2D W/WOM-MODE COMPL SPEC&COLR D Podlogar, Marilia, [employer] ENGINEER.[address] [place] [address] [facility] [address] [address] Referral ID Status Reason Start Date Expiration Date Visits Requested Visits Authorized [id number] Authorized Auto-Generat ed Referral 11/02/2022 11/02/2023 1 1 Specialty Diagnoses / Procedures Referred By Contac t Referred To Contact [facility] Diagnoses Unsteady gait when walking Procedures CONSULT TO PHYSICAL THERAPY PHYSICAL THERAPY EVALUATION HIGH COMPLEX 45 MINS Agnes Del Rosario MD [address] [place] [address] [facility] [address] [address] Referral ID Status Reason Start Date Expiration Date Visits Requested Visits Authorized [id number] Authorized PCP Requested Referral Auto-Generate d Referral 11/01/2023 10/31/2024 99 99 Specialty Diagnoses / Procedures Referred By Contac t Referred To Contact Vascular Medicine Diagnoses Other secondary pulmonary hypertension (HCC) History of pulmonary embolism Procedures CONSULT TO VASCULAR MEDICINE OFFICE/OUTPATIENT [facility] 60 MINUTES Victor Manuel Burrows, [address] [place] [address] Referral ID Status Reason Start Date Expiration Date Visits Requested Visits Authorized [id number] Authorized PCP Requested Referral 11/09/2023 11/08/2024 1 1 Specialty Diagnoses / Procedures Referred By Contac t Referred To Contact [facility] Diagnoses Other secondary pulmonary hypertension (HCC) History of pulmonary embolism Procedures ECHO ECHO TTHRC R-T 2D W/WOM-MODE COMPL SPEC&COLR D Victor Manuel Burrows, [address] [place] [address] [facility] [place] [address] [place] [address] Referral ID Status Reason Start Date Expiration Date Visits Requested Visits Authorized [id number] Authorized Auto-Generat ed Referral 11/09/2023 11/08/2024 1 1 Specialty Diagnoses / Procedures Referred By Contac t Referred To Contact [facility]AG[facility] Diagnoses Other secondary pulmonary hypertension (HCC) Procedures NM LUNG VENT / PERF VQ PULMONARY VENTILATION & PERFUSION IMAGING JessicaVictor Manuel leslie, [address] [place] [address] [facility] [address] [place] [address] Referral ID Status Reason Start Date Expiration Date Visits Requested Visits Authorized [id number] New Request Auto-Generat ed Referral 11/09/2023 12/08/2024 1 1 Specialty Diagnoses / Procedures Referred By Contac t Referred To Contact Orthopedics Diagnoses Acute pain of right knee Procedures CONSULT PANEL TO ORTHOPAEDICS OFFICE/OUTPATIENT [facility] 60 [place] [address] [place] [address] Referral ID Status Reason Start Date Expiration Date Visits Requested Visits Authorized [id number] Authorized PCP Requested Referral 01/18/2024 01/17/2025 1 1 Specialty Diagnoses / Procedures Referred By Contac t Referred To Contact XR IMAGING Diagnoses Acute pain of right knee Procedures XR KNEE GENERAL 4V AP BOTH/PA BOTH/LAT/MERC RIGHT RADIOLOGIC EXAM KNEE COMPLETE 4/[place] [address] [address] [place] [address] Xr Imaging [facility] Referral ID Status Reason Start Date Expiration Date V isits Requested Visits Authorized [id number] Closed Auto-Generate d Referral 01/18/2024 02/16/2025 1 1 Specialty Diagnoses / Procedures Referred By Contac t Referred To Contact MR IMAGING Diagnoses Acute pain of right knee Procedures MRI KNEE WO IVCON RIGHT MRI ANY JT LOWER EXTREM W/O CONTRAST MATRL PodlogMarilia stuart [employer] [address] [place] [address] [facility] [place] [address] Referral ID Status Reason Start Date Expiration Date Visits Requested Visits Authorized [id number] Authorized Auto-Generat ed Referral 01/24/2024 02/22/2025 1 1 Referral ID Status Reason Start Date Expiration Date V isits Requested Visits Authorized [id number] Closed Auto-Generate d Referral 01/24/2024 02/22/2025 1 [...] March 26, 2024 6:13am Current use of buttermaker continuous churn 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 March 26, 2024 6:13am Elevated liver [...] or prosecute any alcohol or drug abuse patient.[facility]In the event this information is protected by the Federal Confidentiality of Alcohol and Drug Abuse Patient Records regulations: The Federal rules restrict any use of the information to criminally investigate or prosecute any alcohol or drug abuse patient.[facility] HospitalIn the event this information is protected by the Federal Confidentiality of Alcohol and Drug Abuse Patient Records regulations: The Federal rules restrict any use of the information to criminally investigate or prosecute any alcohol or drug abuse patient.[facility] HospitalIn the event this information is protected by the Federal Confidentiality of Alcohol and Drug Abuse Patient Records regulations: The Federal rules restrict any use of the information to criminally investigate or prosecute any alcohol or drug abuse patient.[facility] HospitalIn the event this information is protected by the Federal Confidentiality of Alcohol and Drug Abuse Patient Records regulations: The Federal rules restrict any use of the information to criminally investigate or prosecute any alcohol or drug abuse patient.[facility] HospitalIn the event this information is protected by the Federal Confidentiality of Alcohol and Drug Abuse Patient Records regulations: The Federal rules restrict any use of the information to criminally investigate or prosecute any alcohol or drug abuse patient.[facility] HospitalIn the event this information is protected by the Federal Confidentiality of Alcohol and Drug Abuse Patient Records regulations: The Federal rules restrict any use of the information to criminally investigate or prosecute any alcohol or drug abuse patient.[facility] HospitalIn the event this information is protected by the Federal Confidentiality of Alcohol and Drug Abuse Patient Records regulations: The Federal rules restrict any use of the information to criminally investigate or prosecute any alcohol or drug abuse patient.[facility] HospitalIn the event this information is protected by the Federal Confidentiality of Alcohol and Drug Abuse Patient Records regulations: The Federal rules restrict any use of the information to criminally investigate or prosecute any alcohol or drug abuse patient.[facility] HospitalIn the event this information is protected by the Federal Confidentiality of Alcohol and Drug Abuse Patient Records regulations: The Federal rules restrict any use of the information to criminally investigate or prosecute any alcohol or drug abuse patient.[facility] HospitalIn the event this information is protected by the Federal Confidentiality of Alcohol and Drug Abuse Patient Records regulations: The Federal rules restrict any use of the information to criminally investigate or prosecute any alcohol or drug abuse patient.[facility] HospitalIn the event this information is protected by the Federal Confidentiality of Alcohol and Drug Abuse Patient Records regulations: The Federal rules restrict any use of the information to criminally investigate or prosecute any alcohol or drug abuse patient.[facility] HospitalIn the event this information is protected by the Federal Confidentiality of Alcohol and Drug Abuse Patient Records regulations: The Federal rules restrict any use of the information to criminally investigate or prosecute any alcohol or drug abuse patient.[facility] HospitalIn the event this information is protected by the Federal Confidentiality of Alcohol and Drug Abuse Patient Records regulations: The Federal rules restrict any use of the information to criminally investigate or prosecute any alcohol or drug abuse patient.[facility] HospitalIn the event this information is protected by the Federal Confidentiality of Alcohol and Drug Abuse Patient Records regulations: The Federal rules restrict any use of the information to criminally investigate or prosecute any alcohol or drug abuse patient.[facility] HospitalIn the event this information is protected by the Federal Confidentiality of Alcohol and Drug Abuse Patient Records regulations: The Federal rules restrict any use of the information to criminally investigate or prosecute any alcohol or drug abuse patient.[facility] HospitalIn the event this information is protected by the Federal Confidentiality of Alcohol and Drug Abuse Patient Records regulations: The Federal rules restrict any use of the information to criminally investigate or prosecute any alcohol or drug abuse patient.[facility] HospitalIn the event this information is protected by the Federal Confidentiality of Alcohol and Drug Abuse Patient Records regulations: The Federal rules restrict any use of the information to criminally investigate or prosecute any alcohol or drug abuse patient.[facility] HospitalIn the event this information is protected by the Federal Confidentiality of Alcohol and Drug Abuse Patient Records regulations: The Federal rules restrict any use of the information to criminally investigate or prosecute any alcohol or drug abuse patient.[facility] HospitalIn the event this information is protected by the Federal Confidentiality of Alcohol and Drug Abuse Patient Records regulations: The Federal rules restrict any use of the information to criminally investigate or prosecute any alcohol or drug abuse patient.[facility] HospitalIn the event this information is protected by the Federal Confidentiality of Alcohol and Drug Abuse Patient Records regulations: The Federal rules restrict any use of the information to criminally investigate or prosecute any alcohol or drug abuse patient.[facility] HospitalIn the event this information is protected by the Federal Confidentiality of Alcohol and Drug Abuse Patient Records regulations: The Federal rules restrict any use of the information to criminally investigate or prosecute any alcohol or drug abuse patient.[facility] HospitalIn the event this information is protected by the Federal Confidentiality of Alcohol and Drug Abuse Patient Records regulations: The Federal rules restrict any use of the information to criminally investigate or prosecute any alcohol or drug abuse patient.[facility] HospitalIn the event this information is protected by the Federal Confidentiality of Alcohol and Drug Abuse Patient Records regulations: The Federal rules restrict any use of the information to criminally investigate or prosecute any alcohol or drug abuse patient.[facility] HospitalIn the event this information is protected by the Federal Confidentiality of Alcohol and Drug Abuse Patient Records regulations: The Federal rules restrict any use of the information to criminally investigate or prosecute any alcohol or drug abuse patient.[facility] HospitalIn the event this information is protected by the Federal Confidentiality of Alcohol and Drug Abuse Patient Records regulations: The Federal rules restrict any use of the information to criminally investigate or prosecute any alcohol or drug abuse patient.[facility] HospitalIn the event this information is protected by the Federal Confidentiality of Alcohol and Drug Abuse Patient Records regulations: The Federal rules restrict any use of the information to criminally investigate or prosecute any alcohol or drug abuse patient.[facility] HospitalIn the event this information is protected by the Federal Confidentiality of Alcohol and Drug Abuse Patient Records regulations: The Federal rules restrict any use of the information to criminally investigate or prosecute any alcohol or drug abuse patient.[facility] HospitalIn the event this information is protected by the Federal Confidentiality of Alcohol and Drug Abuse Patient Records regulations: The Federal rules restrict any use of the information to criminally investigate or prosecute any alcohol or drug abuse patient.[facility] HospitalIn the event this information is protected by the Federal Confidentiality of Alcohol and Drug Abuse Patient Records regulations: The Federal rules restrict any use of the information to criminally investigate or prosecute any alcohol or drug abuse patient.[facility] HospitalIn the event this information is protected by the Federal Confidentiality of Alcohol and Drug Abuse Patient Records regulations: The Federal rules restrict any use of the information to criminally investigate or prosecute any alcohol or drug abuse patient.[facility] HospitalIn the event this information is protected by the Federal Confidentiality of Alcohol and Drug Abuse Patient Records regulations: The Federal rules restrict any use of the information to criminally investigate or prosecute any alcohol or drug abuse patient.[facility] HospitalIn the event this information is protected by the Federal Confidentiality of Alcohol and Drug Abuse Patient Records regulations: The Federal rules restrict any use of the information to criminally investigate or prosecute any alcohol or drug abuse patient.[facility] HospitalIn the event this information is protected by the Federal Confidentiality of Alcohol and Drug Abuse Patient Records regulations: The Federal rules restrict any use of the information to criminally investigate or prosecute any alcohol or drug abuse patient.[facility] HospitalIn the event this information is protected by the Federal Confidentiality of Alcohol and Drug Abuse Patient Records regulations: The Federal rules restrict any use of the information to criminally investigate or prosecute any alcohol or drug abuse patient.[facility] HospitalIn the event this information is protected by the Federal Confidentiality of Alcohol and Drug Abuse Patient Records regulations: The Federal rules restrict any use of the information to criminally investigate or prosecute any alcohol or drug abuse patient.[facility] HospitalIn the event this information is protected by the Federal Confidentiality of Alcohol and Drug Abuse Patient Records regulations: The Federal rules restrict any use of the information to criminally investigate or prosecute any alcohol or drug abuse patient.[facility] HospitalIn the event this information is protected by the Federal Confidentiality of Alcohol and Drug Abuse Patient Records regulations: The Federal rules restrict any use of the information to criminally investigate or prosecute any alcohol or drug abuse patient.[facility] HospitalIn the event this information is protected by the Federal Confidentiality of Alcohol and Drug Abuse Patient Records regulations: The Federal rules restrict any use of the information to criminally investigate or prosecute any alcohol or drug abuse patient.[facility] HospitalIn the event this information is protected by the Federal Confidentiality of Alcohol and Drug Abuse Patient Records regulations: The Federal rules restrict any use of the information to criminally investigate or prosecute any alcohol or drug abuse patient.[facility] HospitalIn the event this information is protected by the Federal Confidentiality of Alcohol and Drug Abuse Patient Records regulations: The Federal rules restrict any use of the information to criminally investigate or prosecute any alcohol or drug abuse patient.[facility] HospitalIn the event this information is protected by the Federal Confidentiality of Alcohol and Drug Abuse Patient Records regulations: The Federal rules restrict any use of the information to criminally investigate or prosecute any alcohol or drug abuse patient.[facility] HospitalIn the event this information is protected by the Federal Confidentiality of Alcohol and Drug Abuse Patient Records regulations: The Federal rules restrict any use of the information to criminally investigate or prosecute any alcohol or drug abuse patient.[facility] HospitalIn the event this information is protected by the Federal Confidentiality of Alcohol and Drug Abuse Patient Records regulations: The Federal rules restrict any use of the information to criminally investigate or prosecute any alcohol or drug abuse patient.[facility] HospitalIn the event this information is protected by the Federal Confidentiality of Alcohol and Drug Abuse Patient Records regulations: The Federal rules restrict any use of the information to criminally investigate or prosecute any alcohol or drug abuse patient.[facility] HospitalIn the event this information is protected by the Federal Confidentiality of Alcohol and Drug Abuse Patient Records regulations: The Federal rules restrict any use of the information to criminally investigate or prosecute any alcohol or drug abuse patient.[facility] HospitalIn the event this information is protected by the Federal Confidentiality of Alcohol and Drug Abuse Patient Records regulations: The Federal rules restrict any use of the information to criminally investigate or prosecute any alcohol or drug abuse patient.[facility] HospitalIn the event this information is protected by the Federal Confidentiality of Alcohol and Drug Abuse Patient Records regulations: The Federal rules restrict any use of the information to criminally investigate or prosecute any alcohol or drug abuse patient.[facility] HospitalIn the event this information is protected by the Federal Confidentiality of Alcohol and Drug Abuse Patient Records regulations: The Federal rules restrict any use of the information to criminally investigate or prosecute any alcohol or drug abuse patient.[facility] HospitalIn the event this information is protected by the Federal Confidentiality of Alcohol and Drug Abuse Patient Records regulations: The Federal rules restrict any use of the information to criminally investigate or prosecute any alcohol or drug abuse patient.[facility] HospitalIn the event this information is protected by the Federal Confidentiality of Alcohol and Drug Abuse Patient Records regulations: The Federal rules restrict any use of the information to criminally investigate or prosecute any alcohol or drug abuse patient.[facility] HospitalIn the event this information is protected by the Federal Confidentiality of Alcohol and Drug Abuse Patient Records regulations: The Federal rules restrict any use of the information to criminally investigate or prosecute any alcohol or drug abuse patient.[facility] HospitalIn the event this information is protected by the Federal Confidentiality of Alcohol and Drug Abuse Patient Records regulations: The Federal rules restrict any use of the information to criminally investigate or prosecute any alcohol or drug abuse patient.[facility] HospitalIn the event this information is protected by the Federal Confidentiality of Alcohol and Drug Abuse Patient Records regulations: The Federal rules restrict any use of the information to criminally investigate or prosecute any alcohol or drug abuse patient.[facility] HospitalIn the event this information is protected by the Federal Confidentiality of Alcohol and Drug Abuse Patient Records regulations: The Federal rules restrict any use of the information to criminally investigate or prosecute any alcohol or drug abuse patient.[facility] HospitalIn the event this information is protected by the Federal Confidentiality of Alcohol and Drug Abuse Patient Records regulations: The Federal rules restrict any use of the information to criminally investigate or prosecute any alcohol or drug abuse patient.[facility] HospitalIn the event this information is protected by the Federal Confidentiality of Alcohol and Drug Abuse Patient Records regulations: The Federal rules restrict any use of the information to criminally investigate or prosecute any alcohol or drug abuse patient.[facility] HospitalIn the event this information is protected by the Federal Confidentiality of Alcohol and Drug Abuse Patient Records regulations: The Federal rules restrict any use of the information to criminally investigate or prosecute any alcohol or drug abuse patient.[facility] HospitalIn the event this information is protected by the Federal Confidentiality of Alcohol and Drug Abuse Patient Records regulations: The Federal rules restrict any use of the information to criminally investigate or prosecute any alcohol or drug abuse patient.[facility] HospitalIn the event this information is protected by the Federal Confidentiality of Alcohol and Drug Abuse Patient Records regulations: The Federal rules restrict any use of the information to criminally investigate or prosecute any alcohol or drug abuse patient.[facility] HospitalIn the event this information is protected by the Federal Confidentiality of Alcohol and Drug Abuse Patient Records regulations: The Federal rules restrict any use of the information to criminally investigate or prosecute any alcohol or drug abuse patient.[facility] HospitalIn the event this information is protected by the Federal Confidentiality of Alcohol and Drug Abuse Patient Records regulations: The Federal rules restrict any use of the information to criminally investigate or prosecute any alcohol or drug abuse patient.[facility] HospitalIn the event this information is protected by the Federal Confidentiality of Alcohol and Drug Abuse Patient Records regulations: The Federal rules restrict any use of the information to criminally investigate or prosecute any alcohol or drug abuse patient.[facility] HospitalIn the event this information is protected by the Federal Confidentiality of Alcohol and Drug Abuse Patient Records regulations: The Federal rules restrict any use of the information to criminally investigate or prosecute any alcohol or drug abuse patient.[facility] HospitalIn the event this information is protected by the Federal Confidentiality of Alcohol and Drug Abuse Patient Records regulations: The Federal rules restrict any use of the information to criminally investigate or prosecute any alcohol or drug abuse patient.[facility] HospitalIn the event this information is protected by the Federal Confidentiality of Alcohol and Drug Abuse Patient Records regulations: The Federal rules restrict any use of the information to criminally investigate or prosecute any alcohol or drug abuse patient.[facility] HospitalIn the event this information is protected by the Federal Confidentiality of Alcohol and Drug Abuse Patient Records regulations: The Federal rules restrict any use of the information to criminally investigate or prosecute any alcohol or drug abuse patient.[facility] HospitalIn the event this information is protected by the Federal Confidentiality of Alcohol and Drug Abuse Patient Records regulations: The Federal rules restrict any use of the information to criminally investigate or prosecute any alcohol or drug abuse patient.[facility] HospitalIn the event this information is protected by the Federal Confidentiality of Alcohol and Drug Abuse Patient Records regulations: The Federal rules restrict any use of the information to criminally investigate or prosecute any alcohol or drug abuse patient.[facility] HospitalIn the event this information is protected by the Federal Confidentiality of Alcohol and Drug Abuse Patient Records regulations: The Federal rules restrict any use of the information to criminally investigate or prosecute any alcohol or drug abuse patient.[facility] HospitalIn the event this information is protected by the Federal Confidentiality of Alcohol and Drug Abuse Patient Records regulations: The Federal rules restrict any use of the information to criminally investigate or prosecute any alcohol or drug abuse patient.[facility] HospitalIn the event this information is protected by the Federal Confidentiality of Alcohol and Drug Abuse Patient Records regulations: The Federal rules restrict any use of the information to criminally investigate or prosecute any alcohol or drug abuse patient.[facility] HospitalIn the event this information is protected by the Federal Confidentiality of Alcohol and Drug Abuse Patient Records regulations: The Federal rules restrict any use of the information to criminally investigate or prosecute any alcohol or drug abuse patient.[facility] HospitalIn the event this information is protected by the Federal Confidentiality of Alcohol and Drug Abuse Patient Records regulations: The Federal rules restrict any use of the information to criminally investigate or prosecute any alcohol or drug abuse patient.[facility] HospitalIn the event this information is protected by the Federal Confidentiality of Alcohol and Drug Abuse Patient Records regulations: The Federal rules restrict any use of the information to criminally investigate or prosecute any alcohol or drug abuse patient.[facility] HospitalIn the event this information is protected by the Federal Confidentiality of Alcohol and Drug Abuse Patient Records regulations: The Federal rules restrict any use of the information to criminally investigate or prosecute any alcohol or drug abuse patient.[facility] HospitalIn the event this information is protected by the Federal Confidentiality of Alcohol and Drug Abuse Patient Records regulations: The Federal rules restrict any use of the information to criminally investigate or prosecute any alcohol or drug abuse patient.[facility] HospitalIn the event this information is protected by the Federal Confidentiality of Alcohol and Drug Abuse Patient Records regulations: The Federal rules restrict any use of the information to criminally investigate or prosecute any alcohol or drug abuse patient.[facility] HospitalIn the event this information is protected by the Federal Confidentiality of Alcohol and Drug Abuse Patient Records regulations: The Federal rules restrict any use of the information to criminally investigate or prosecute any alcohol or drug abuse patient.[facility] HospitalIn the event this information is protected by the Federal Confidentiality of Alcohol and Drug Abuse Patient Records regulations: The Federal rules restrict any use of the information to criminally investigate or prosecute any alcohol or drug abuse patient.[facility] HospitalIn the event this information is protected by the Federal Confidentiality of Alcohol and Drug Abuse Patient Records regulations: The Federal rules restrict any use of the information to criminally investigate or prosecute any alcohol or drug abuse patient.[facility] HospitalIn the event this information is protected by the Federal Confidentiality of Alcohol and Drug Abuse Patient Records regulations: The Federal rules restrict any use of the information to criminally investigate or prosecute any alcohol or drug abuse patient.[facility] HospitalIn the event this information is protected by the Federal Confidentiality of Alcohol and Drug Abuse Patient Records regulations: The Federal rules restrict any use of the information to criminally investigate or prosecute any alcohol or drug abuse patient.[facility] HospitalIn the event this information is protected by the Federal Confidentiality of Alcohol and Drug Abuse Patient Records regulations: The Federal rules restrict any use of the information to criminally investigate or prosecute any alcohol or drug abuse patient.[facility] HospitalIn the event this information is protected by the Federal Confidentiality of Alcohol and Drug Abuse Patient Records regulations: The Federal rules restrict any use of the information to criminally investigate or prosecute any alcohol or drug abuse patient.[facility] HospitalIn the event this information is protected by the Federal Confidentiality of Alcohol and Drug Abuse Patient Records regulations: The Federal rules restrict any use of the information to criminally investigate or prosecute any alcohol or drug abuse patient.[facility] HospitalIn the event this information is protected by the Federal Confidentiality of Alcohol and Drug Abuse Patient Records regulations: The Federal rules restrict any use of the information to criminally investigate or prosecute any alcohol or drug abuse patient.[facility] HospitalIn the event this information is protected by the Federal Confidentiality of Alcohol and Drug Abuse Patient Records regulations: The Federal rules restrict any use of the information to criminally investigate or prosecute any alcohol or drug abuse patient.[facility] HospitalIn the event this information is protected by the Federal Confidentiality of Alcohol and Drug Abuse Patient Records regulations: The Federal rules restrict any use of the information to criminally investigate or prosecute any alcohol or drug abuse patient.[facility] HospitalIn the event this information is protected by the Federal Confidentiality of Alcohol and Drug Abuse Patient Records regulations: The Federal rules restrict any use of the information to criminally investigate or prosecute any alcohol or drug abuse patient.[facility] HospitalIn the event this information is protected by the Federal Confidentiality of Alcohol and Drug Abuse Patient Records regulations: The Federal rules restrict any use of the information to criminally investigate or prosecute any alcohol or drug abuse patient.[facility] HospitalIn the event this information is protected by the Federal Confidentiality of Alcohol and Drug Abuse Patient Records regulations: The Federal rules restrict any use of the information to criminally investigate or prosecute any alcohol or drug abuse patient.[facility] HospitalIn the event this information is protected by the Federal Confidentiality of Alcohol and Drug Abuse Patient Records regulations: The Federal rules restrict any use of the information to criminally investigate or prosecute any alcohol or drug abuse patient.[facility] HospitalIn the event this information is protected by the Federal Confidentiality of Alcohol and Drug Abuse Patient Records regulations: The Federal rules restrict any use of the information to criminally investigate or prosecute any alcohol or drug abuse patient.[facility] HospitalIn the event this information is protected by the Federal Confidentiality of Alcohol and Drug Abuse Patient Records regulations: The Federal rules restrict any use of the information to criminally investigate or prosecute any alcohol or drug abuse patient.[facility] HospitalIn the event this information is protected by the Federal Confidentiality of Alcohol and Drug Abuse Patient Records regulations: The Federal rules restrict any use of the information to criminally investigate or prosecute any alcohol or drug abuse patient.[facility] HospitalIn the event this information is protected by the Federal Confidentiality of Alcohol and Drug Abuse Patient Records regulations: The Federal rules restrict any use of the information to criminally investigate or prosecute any alcohol or drug abuse patient.[facility] HospitalIn the event this information is protected by the Federal Confidentiality of Alcohol and Drug Abuse Patient Records regulations: The Federal rules restrict any use of the information to criminally investigate or prosecute any alcohol or drug abuse patient.[facility] HospitalIn the event this information is protected by the Federal Confidentiality of Alcohol and Drug Abuse Patient Records regulations: The Federal rules restrict any use of the information to criminally investigate or prosecute any alcohol or drug abuse patient.[facility] HospitalIn the event this information is protected by the Federal Confidentiality of Alcohol and Drug Abuse Patient Records regulations: The Federal rules restrict any use of the information to criminally investigate or prosecute any alcohol or drug abuse patient.[facility] HospitalIn the event this information is protected by the Federal Confidentiality of Alcohol and Drug Abuse Patient Records regulations: The Federal rules restrict any use of the information to criminally investigate or prosecute any alcohol or drug abuse patient.[facility] HospitalIn the event this information is protected by the Federal Confidentiality of Alcohol and Drug Abuse Patient Records regulations: The Federal rules restrict any use of the information to criminally investigate or prosecute any alcohol or drug abuse patient.[facility] HospitalIn the event this information is protected by the Federal Confidentiality of Alcohol and Drug Abuse Patient Records regulations: The Federal rules restrict any use of the information to criminally investigate or prosecute any alcohol or drug abuse patient.[facility] HospitalIn the event this information is protected by the Federal Confidentiality of Alcohol and Drug Abuse Patient Records regulations: The Federal rules restrict any use of the information to criminally investigate or prosecute any alcohol or drug abuse patient.[facility] HospitalIn the event this information is protected by the Federal Confidentiality of Alcohol and Drug Abuse Patient Records regulations: The Federal rules restrict any use of the information to criminally investigate or prosecute any alcohol or drug abuse patient.[facility] HospitalIn the event this information is protected by the Federal Confidentiality of Alcohol and Drug Abuse Patient Records regulations: The Federal rules restrict any use of the information to criminally investigate or prosecute any alcohol or drug abuse patient.[facility] HospitalIn the event this information is protected by the Federal Confidentiality of Alcohol and Drug Abuse Patient Records regulations: The Federal rules restrict any use of the information to criminally investigate or prosecute any alcohol or drug abuse patient.[facility] HospitalIn the event this information is protected by the Federal Confidentiality of Alcohol and Drug Abuse Patient Records regulations: The Federal rules restrict any use of the information to criminally investigate or prosecute any alcohol or drug abuse patient.[facility] HospitalIn the event this information is protected by the Federal Confidentiality of Alcohol and Drug Abuse Patient Records regulations: The Federal rules restrict any use of the information to criminally investigate or prosecute any alcohol or drug abuse patient.[facility] HospitalIn the event this information is protected by the Federal Confidentiality of Alcohol and Drug Abuse Patient Records regulations: The Federal rules restrict any use of the information to criminally investigate or prosecute any alcohol or drug abuse patient.[facility] HospitalIn the event this information is protected by the Federal Confidentiality of Alcohol and Drug Abuse Patient Records regulations: The Federal rules restrict any use of the information to criminally investigate or prosecute any alcohol or drug abuse patient.[facility] HospitalIn the event this information is protected by the Federal Confidentiality of Alcohol and Drug Abuse Patient Records regulations: The Federal rules restrict any use of the information to criminally investigate or prosecute any alcohol or drug abuse patient.[facility] HospitalIn the event this information is protected by the Federal Confidentiality of Alcohol and Drug Abuse Patient Records regulations: The Federal rules restrict any use of the information to criminally investigate or prosecute any alcohol or drug abuse patient.[facility] HospitalIn the event this information is protected by the Federal Confidentiality of Alcohol and Drug Abuse Patient Records regulations: The Federal rules restrict any use of the information to criminally investigate or prosecute any alcohol or drug abuse patient.[facility] HospitalIn the event this information is protected by the Federal Confidentiality of Alcohol and Drug Abuse Patient Records regulations: The Federal rules restrict any use of the information to criminally investigate or prosecute any alcohol or drug abuse patient.[facility] Reason for Visit (unrecogniz ed section and content) Reason Comments Physical Therapy PT Progress Note Specialty Diagnoses / Procedures Referred By Contac t Referred To Contact PHYSICAL THERAPY Diagnoses Unsteady gait when walking Procedures CONSULT TO PHYSICAL THERAPY PHYSICAL THERAPY EVALUATION HIGH COMPLEX 45 MINS Agnes Del Rosario MD [address] [place] [address] Pt [facility] [address] [place] [address] Referral ID Status Reason Start Date Expiration Date Visits Requested Visits Authorized [id number] Authorized PCP Requested Referral Auto-Generate d Referral [...] EVALUATION HIGH COMPLEX 45 MINS PodlogMarilia stuart APRN.[facility] [address] [place] [address] [facility] [place] [address] [place] [address] Referral ID Status Reason Start Date Expiration Date Visits Requested Visits Authorized [id number] Authorized PCP Requested Referral Auto-Generate d Referral 11/02/2022 11/02/2023 99 99 Specialty Diagnoses / Procedures Referred By Contac t Referred To Contact [facility] Diagnoses Chronic bilateral low back pain with bilateral sciatica At high risk for falls Age-related physical debility Procedures CONSULT TO PHYSICAL THERAPY PHYSICAL THERAPY EVALUATION HIGH COMPLEX 45 MINS Agnes Del Rosario MD [address] [place] [address] [facility] [place] [address] [place] [address] Referral ID Status Reason Start Date Expiration Date Visits Requested Visits Authorized [id number] Authorized PCP Requested Referral Auto-Generate d Referral [...] MDM 60 [place] [address] [address] [place] [place] [address] Referral ID Status Reason Start Date Expiration Date V isits Requested Visits Authorized [id number] Closed PCP Requested Referral 11/09/2023 11/08/2024 1 [...] LOWER EXTREM W/O CONTRAST MATRL Podlogar, ARIAS CapellanN.[facility] [address] [place] [address] [place] [id number] Referral ID Status Reason Start Date Expiration Date V isits Requested Visits Authorized [id number] Closed Auto-Generate d Referral 01/24/2024 02/22/2025 1 [...] Comm dc 03/28/24 Reason Comments Hospital F/U [facility] 03/26-03/28 for pancreatitis Reason Onset Date Comments Refill Request 04/12/2024 Reason Comments Skin Check Reason Onset Date Comments Refill Request 05/21/2024 Reason Onset Date Comments Refill Request 07/26/2024 Reason Onset Date Comments Population Health Navigation Outreach 08/07/2024 [place]/Workbench/ACO Reason Onset Date Comments Refill Request 08/12/2024 [...] updated med list Patient Update Admitted to [facility] Reason Onset Date Comments Transition Of Care 10/25/2024 Initial Outre ach-OON [place] 10/24/2024 Reason Comments Hospital F/U Reason [...] September 17, 2024 End: September 17, 2024 Cashier Checker Relationship Specialty Start Date End Date Agnes Del Rosario MD [address] [place] [address] PCP - General Family Practice 01/12/21 Scott Pal MD [address] [address] Referring Orthopedics 06/03/19 Scott Pal MD [address] [address] Home Care Physician Orthopedics 06/03/19 Caroline Fitzgerald, PT [address] [place] [address] Timber Management Professor Acute Care 06/07/19 John Garcia MD [address], [address] [place] [address] Primary Staff Physician Cardiology 07/17/18 Cashier Checker Relationship Specialty Start Date End Date Agnes Del Rosario MD [address] [place] [address] PCP - General Family Practice 01/12/21 Scott Pal MD [address] [place] [address] Referring Orthopedics 06/03/19 Scott Pal MD [address] [address] Home Care Physician Orthopedics 06/03/19 Caroline Fitzgerald, PT [address] [place] [address] Timber Management Professor Acute Care 06/07/19 John Garcia MD [address], [address] [place] [address] Primary Staff Physician Cardiology 07/17/18 Cashier Checker Relationship Specialty Start Date End Date Agnes Del Rosario MD [address] [place] [address] PCP - General Family Practice 01/12/21 Scott Pal MD [address] [place] [address] Referring Orthopedics 06/03/19 Scott Pal MD [address] [address] Home Care Physician Orthopedics 06/03/19 Caroline Fitzgerald, PT [address] [place] [address] Timber Management Professor Acute Care 06/07/19 John Garcia MD [address], [address] [place] [address] Primary Staff Physician Cardiology 07/17/18 Cashier Checker Relationship Specialty Start Date End Date Agnes Del Rosario MD [address] [place] [address] PCP - General Family Practice 01/12/21 Scott Pal MD [address] [address] Referring Orthopedics 06/03/19 Scott Pal MD [address] [address] Home Care Physician Orthopedics 06/03/19 Caroline Fitzgerald, PT [address] [place] [address] Timber Management Professor Acute Care 06/07/19 John Garcia MD [address], [address] [place] [address] Primary Staff Physician Cardiology 07/17/18 Cashier Checker Relationship Specialty Start Date End Date Agnes Del Rosario MD [address] [place] [address] PCP - General Family Practice 01/12/21 Scott Pal MD [address] [address] Referring Orthopedics 06/03/19 Scott Pal MD [address] [address] Home Care Physician Orthopedics 06/03/19 Caroline Fitzgerald, PT [address] [place] [address] Timber Management Professor Acute Care 06/07/19 John Garcia MD [address], [address] [place] [address] Primary Staff Physician Cardiology 07/17/18 Cashier Checker Relationship Specialty Start Date End Date Agnes Del Rosario MD [address] [place] [address] PCP - General Family Practice 01/12/21 Scott Pal MD [address] [address] Referring Orthopedics 06/03/19 Scott Pal MD [address] [address] Home Care Physician Orthopedics 06/03/19 Caroline Fitzgerald, PT [address] [place] [address] Timber Management Professor Acute Care 06/07/19 John Garcia MD [address] [place] [address] Primary Staff Physician Cardiology 07/17/18 Cashier Checker Relationship Specialty Start Date End Date Agnes Del Rosario MD [address] [place] [address] PCP - General Family Practice 01/12/21 Scott Pal MD [address] [address] Referring Orthopedics 06/03/19 Scott Pal MD [address] [address] Home Care Physician Orthopedics 06/03/19 Caroline Fitzgerald, PT [address] [place] [address] Timber Management Professor Acute Care 06/07/19 John Garcia MD [address] [place] [address] Primary Staff Physician Cardiology 07/17/18 Cashier Checker Relationship Specialty Start Date End Date Agnes Del Rosario MD [address] [place] [address] PCP - General Family Practice 01/12/21 Scott Pal MD [address] [address] Referring Orthopedics 06/03/[address] [facility] [address] [address] Home Care Physician Orthopedics 06/03/19 Caroline Fitzgerald, PT [address] [place] [address] Timber Management Professor Acute Care 06/07/19 John Garcia MD [address], [address] [place] [address] Primary Staff Physician Cardiology 07/17/18 Cashier Checker Relationship Specialty Start Date End Date Agnes Del Rosario MD [address] [place], [place] [id number] PCP - General Family Practice 01/12/21 Scott Pal MD [address] [address] Referring Orthopedics 06/03/19 Scott Pal MD [address] [address] Home Care Physician Orthopedics 06/03/19 Caroline Fitzgerald, PT [address] [place] [address] Timber Management Professor Acute Care 06/07/19 John Garcia MD [address], [address] [place] [address] Primary Staff Physician Cardiology 07/17/18 Cashier Checker Relationship Specialty Start Date End Date Agnes Del Rosario MD [address] [place], [place] [address] PCP - General Family Practice 01/12/21 Scott Pal MD [address] [address] Referring Orthopedics 06/03/19 Scott Pal MD [address] [place] [address] Home Care Physician Orthopedics 06/03/19 Caroline Fitzgerald, PT [address] [place] [address] Timber Management Professor Acute Care 06/07/19 John Garcia MD [address], [address] [place] [address] Primary Staff Physician Cardiology 07/17/18 Cashier Checker Relationship Specialty Start Date End Date Agnes Del Rosario MD [address] [place], [place] [address] PCP - General Family Practice 01/12/21 Scott Pal MD [address] [address] Referring Orthopedics 06/03/19 Scott Pal MD [address] [address] Home Care Provider Orthopedics 06/03/19 Caroline Fitzgerald, PT [address] [place] [address] Timber Management Professor Acute Care 06/07/19 John Garcia MD [address], [address] [place] [address] Primary Staff Physician Cardiology 07/17/18 Cashier Checker Relationship Specialty Start Date End Date Agnes Del Rosario MD [address] [place] [address] PCP - General Family Medicine 01/12/21 Scott Pal MD [address] [address] Referring Orthopedics 06/03/19 Scott Pal MD [address] [address] Home Care Provider Orthopedics 06/03/19 Caroline Fitzgerald, PT [address] [place] [address] Timber Management Professor Acute Care 06/07/19 John Garcia MD [address], [address] [place] [address] Primary Staff Physician Cardiology 07/17/18 Cashier Checker Relationship Specialty Start Date End Date Agnes Del Rosario MD [address] [place] [address] PCP - General Family Medicine 01/12/21 Scott Pal MD [address] [address] Referring Orthopedics 06/03/19 Scott Pal MD [address] [address] Home Care Provider Orthopedics 06/03/19 Caroline Fitzgerald, PT [address] [place] [address] Timber Management Professor Acute Care 06/07/19 John Garcia MD [address], [address] [place] [address] Primary Staff Physician Cardiology 07/17/18 Cashier Checker Relationship Specialty Start Date End Date Agnes Del Rosario MD [address] [place] [address] PCP - General Family Medicine 01/12/21 Scott Pal MD [address] [address] Referring Orthopedics 06/03/19 Scott Pal MD [address] [address] Home Care Provider Orthopedics 06/03/19 Caroline Fitzgerald, PT [address] [place] [address] Timber Management Professor Acute Care 06/07/19 John Garcia MD [address], [address] [place] [address] Primary Staff Physician Cardiology 07/17/18 Cashier Checker Relationship Specialty Start Date End Date Agnes Del Rosario MD [address] [place] [address] PCP - General Family Medicine 01/12/21 Scott Pal MD [address] [address] Referring Orthopedics 06/03/19 Scott Pal MD [address] [address] Home Care Provider Orthopedics 06/03/19 Caroline Fitzgerald, PT [address] [place] [address] Timber Management Professor Acute Care 06/07/19 John Garcia MD [address], [address] [place] [address] Primary Staff Physician Cardiology 07/17/18 Cashier Checker Relationship Specialty Start Date End Date Agnes Del Rosario MD [address] [place], [place] [address] PCP - General Family Medicine 01/12/21 Scott Pal MD [address] [place] [address] Referring Orthopedics 06/03/19 Scott Pal MD [address] [place] [address] Home Care Provider Orthopedics 06/03/19 Caroline Fitzgerald, PT [address] [place] [address] Timber Management Professor Acute Care 06/07/19 John Garcia MD [address], [address] [place] [address] Primary Staff Physician Cardiology 07/17/18 Cashier Checker Relationship Specialty Start Date End Date Agnes Del Rosario MD [address] [place] [address] PCP - General Family Medicine 01/12/21 Scott Pal MD [address] [place] [address] Referring Orthopedics 06/03/19 Scott Pal MD [address] [place] [address] Home Care Provider Orthopedics 06/03/19 Caroline Fitzgerald, PT [address] [place] [address] Timber Management Professor Acute Care 06/07/19 John Garcia MD [address], [place] [address] [place] [address] Primary Staff Physician Cardiology 07/17/18 Cashier Checker Relationship Specialty Start Date End Date Agnes Del Rosario MD [address] [place], [place] 927765 [phone] PCP - General Family Medicine 01/12/21 Scott Pal MD [address] [address] Referring Orthopedics 06/03/19 Scott Pal MD [address] [address] Home Care Provider Orthopedics 06/03/19 Caroline Fitzgerald, PT [address] [place] [address] Timber Management Professor Acute Care 06/07/19 John Garcia MD [address], [place] [place] [address] Primary Staff Physician Cardiology 07/17/18 Cashier Checker Relationship Specialty Start Date End Date Agnes Del Rosario MD [address] [place] [address] PCP - General Family Medicine 01/12/21 Scott Pal MD [address] [address] Referring Orthopedics 06/03/19 Scott Pal MD [address] [address] Home Care Provider Orthopedics 06/03/19 Caroline Fitzgerald, PT [address] [place] [address] Timber Management Professor Acute Care 06/07/19 John Garcia MD [address], [place] [place] [address] Primary Staff Physician Cardiology 07/17/18 Cashier Checker Relationship Specialty Start Date End Date Agnes Del Rosario MD [address] [place], [place] 719661 PCP - General Family Medicine 01/12/21 Scott Pal MD [address] [address] Referring Orthopedics 06/03/19 Scott Pal MD [address] [address]98 Home Care Provider Orthopedics 06/03/19 Caroline Fitzgerald, PT [address] [place] [address] Timber Management Professor Acute Care 06/07/19 John Garcia MD [address], [address] [place] [address] Primary Staff Physician Cardiology 07/17/18 Cashier Checker Relationship Specialty Start Date End Date Agnes Del Rosario MD [address] [place] [address] PCP - General Family Medicine 01/12/21 Scott Pal MD [address] [address] Referring Orthopedics 06/03/19 Scott Pal MD [address] [address] Home Care Provider Orthopedics 06/03/19 Caroline Fitzgerald, PT [address] [place] [address] Timber Management Professor Acute Care 06/07/19 John Garcia MD [address], [address] [place], [place] 4366695 Primary Staff Physician Cardiology 07/17/18 Cashier Checker Relationship Specialty Start Date End Date Agnes Del Rosario MD [address] [place] [address] PCP - General Family Medicine 01/12/21 Scott Pal MD [address] [address] Referring Orthopedics 06/03/19 Scott Pal MD [address] 9[address] Home Care Provider Orthopedics 06/03/19 Caroline Fitzgerald, PT [address] [place] [address] Timber Management Professor Acute Care 06/07/19 John Garcia MD [address], [place] [place] [address] Primary Staff Physician Cardiology 07/17/18 Cashier Checker Relationship Specialty Start Date End Date Agnes Del Rosario MD [address] [place] [address] PCP - General Family Medicine 01/12/21 Scott Pal MD [address] [place] [address] Referring Orthopedics 06/03/19 Scott Pal MD [address] [place] [address] Home Care Provider Orthopedics 06/03/19 Caroline Fitzgerald, PT [address] [place] [address] Timber Management Professor Acute Care 06/07/19 John Garcia MD [address] [place] [place] [address] Primary Staff Physician Cardiology 07/17/18 Cashier Checker Relationship Specialty Start Date End Date Agnes Del Rosario MD [address] [place] [address] PCP - General Family Medicine 01/12/21 Scott Pal MD [address] [place] [address] 78[address] Referring Orthopedics 06/03/19 Scott Pal MD [address] [place] [address] 16447 Home Care Provider Orthopedics 06/03/19 Caroline Fitzgerald, PT [address] [place], [place] 2085431 Timber Management Professor Acute Care 06/07/19 John Garcia MD [address], [address] [place], [place] 3302095 Primary Staff Physician Cardiology 07/17/18 Cashier Checker Relationship Specialty Start Date End Date Agnes Del Rosario MD [address] [place], [place] 754821 PCP - General Family Medicine 01/12/21 Scott Pal MD [address] [id number] Referring Orthopedics 06/03/19 Scott Pal MD [address] [phone] Home Care Provider Orthopedics 06/03/19 Caroline Fitzgerald, PT [address] [place] [address] Timber Management Professor Acute Care 06/07/19 John Garcia MD [address], [address] [place] [address] Primary Staff Physician Cardiology 07/17/18 Cashier Checker Relationship Specialty Start Date End Date Agnes Del Rosario MD [address] [place], [place] 848291 PCP - General Family Medicine 01/12/21 Scott Pal MD [address] [address] Referring Orthopedics 06/03/[address] [facility] [address] [address] Home Care Provider Orthopedics 06/03/19 Caroline Fitzgerald, PT [address] [place] [address] Timber Management Professor Acute Care 06/07/19 John Garcia MD [address], [place] [place] [address] Primary Staff Physician Cardiology 07/17/18 Cashier Checker Relationship Specialty Start Date End Date Agnes Del Rosario MD [address] [place] [address] PCP - General Family Medicine 01/12/21 Scott Pal MD [address] [place] [address] 31599 Referring Orthopedics 06/03/19 Scott Pal MD [address] [place] [address] 84208 Home Care Provider Orthopedics 06/03/19 Caroline Fitzgerald, PT [address] [place] [address] Timber Management Professor Acute Care 06/07/19 John Garcia MD [address], [place] [place] [address] Primary Staff Physician Cardiology 07/17/18 Cashier Checker Relationship Specialty Start Date End Date Agnes Del Rosario MD [address] [place] [address] PCP - General Family Medicine 01/12/21 Scott Pal MD [address] [address] Referring Orthopedics 06/03/19 Scott Pal MD [address] 84998 Home Care Provider Orthopedics 06/03/19 Caroline Fitzgerald, PT [address] [place] [address] Timber Management Professor Acute Care 06/07/19 John Garcia MD [address], [address] [place], [place] 7395695 Primary Staff Physician Cardiology 07/17/18 Cashier Checker Relationship Specialty Start Date End Date Agnes Del Rosario MD [address] [place] [address] PCP - General Family Medicine 01/12/21 Scott Pal MD [address] [address] Referring Orthopedics 06/03/19 Scott Pal MD [address] [address] Home Care Provider Orthopedics 06/03/19 Caroline Fitzgerald, PT [address] [place] [address] Timber Management Professor Acute Care 06/07/19 John Garcia MD [address], [address] [place], [place] 8603995 Primary Staff Physician Cardiology 07/17/18 Cashier Checker Relationship Specialty Start Date End Date Agnes Del Rosario MD [address] [place], [place] 813931 PCP - General Family Medicine 01/12/21 Scott Pal MD [address] [address] Referring Orthopedics 06/03/19 Scott Pal MD [address] 9[address]85 Home Care Provider Orthopedics 06/03/19 Caroline Fitzgerald, PT [address] [place] [address] Timber Management Professor Acute Care 06/07/19 John Garcia MD [address], [address] [place], [place] 9543095 Primary Staff Physician Cardiology 07/17/18 Cashier Checker Relationship Specialty Start Date End Date Agnes Del Rosario MD [address] [place] [address] PCP - General Family Medicine 01/12/21 Scott Pal MD [address] 14033 Referring Orthopedics 06/03/19 Scott Pal MD [address] [address] Home Care Provider Orthopedics 06/03/19 Caroline Fitzgerald, PT [address] [place] [address] Timber Management Professor Acute Care 06/07/19 John Garcia MD [address], [place] [place] [address] Primary Staff Physician Cardiology 07/17/18 Cashier Checker Relationship Specialty Start Date End Date Agnes Del Rosario MD [address] [place], [place] 124121 PCP - General Family Medicine 01/12/21 Scott Pal MD [address] [place] [address] 04384 Referring Orthopedics 06/03/19 Scott Pal MD [address] [place] [address] Home Care Provider Orthopedics 06/03/19 Caroline Fitzgerald, PT [address] [place] [address] Timber Management Professor Acute Care 06/07/19 John Garcia MD [address], [place] [place] [address] Primary Staff Physician Cardiology 07/17/18 Cashier Checker Relationship Specialty Start Date End Date Agnes Del Rosario MD [address] [place], [place] 216271 PCP - General Family Medicine 01/12/21 Scott Pal MD [address] [place] [address] 964[address] Referring Orthopedics 06/03/19 Scott Pal MD [address] [address] Home Care Provider Orthopedics 06/03/19 Caroline Fitzgerald, PT [address] [place] [address] Timber Management Professor Acute Care 06/07/19 John Garcia MD [address], [place] [address] [place] [address] Primary Staff Physician Cardiology 07/17/18 Cashier Checker Relationship Specialty Start Date End Date Agnes Del Rosario MD [address] [place], [place] 487021 PCP - General Family Medicine 01/12/21 Scott Pal MD [address] [address] Referring Orthopedics 06/03/19 Scott Pal MD [address] [address] Home Care Provider Orthopedics 06/03/19 Caroline Fitzgerald, PT [address] [place] [address] Timber Management Professor Acute Care 06/07/19 John Garcia MD [address], [place] [place] [address] Primary Staff Physician Cardiology 07/17/18 Cashier Checker Relationship Specialty Start Date End Date Agnes Del Rosario MD [address] [place] [address] PCP - General Family Medicine 01/12/21 Scott Pal MD [address] [place] [address] Referring Orthopedics 06/03/19 Scott Pal MD [address] [place] [address] Home Care Provider Orthopedics 06/03/19 John Garcia MD [address] [place] [place] [address] Primary Staff Physician Cardiology 07/17/18 Cashier Checker Relationship Specialty Start Date End Date Agnes Del Rosario MD [address] [place] [address] PCP - General Family Medicine 01/12/21 Scott Pal MD [address] [place] [address] 03[address] Referring Orthopedics 06/03/19 Scott Pal MD [address] [place] [address]38 Home Care Provider Orthopedics 06/03/19 John Garcia MD [address] [place], [place] 4194295 Primary Staff Physician Cardiology 07/17/18 Team Status: Active Member Role Status Dates Dr. Macario Duran III, MD Family Provider Active Dr. Salvador Del Rosario MD Primary Care Provider Acti ve Team Status: Inactive Member Role Status Dates Dr. Bob Cabezas MD Attending Provider, Referring Provider Active Dr. Salvador Del Rosario MD Primary Care Provider Acti ve Cashier Checker Relationship Specialty Start Date End Date Agnes Del Rosario MD [address] [place] [address] PCP - General Family Medicine 01/12/21 Scott Pal MD [address] [address] Referring Orthopedics 06/03/19 Scott Pal MD [address] [place] [address] Home Care Provider Orthopedics 06/03/19 John Garcia MD [address], [place] [place] [address] Primary Staff Physician Cardiology 07/17/18 Cashier Checker Relationship Specialty Start Date End Date Agnes Del Rosario MD [address] [place] [address] PCP - General Family Medicine 01/12/21 Scott Pal MD [address] [place] [address] Referring Orthopedics 06/03/19 Scott Pal MD [address] [address] Home Care Provider Orthopedics 06/03/19 John Garcia MD [address], [address] [place], [place] 9717495 Primary Staff Physician Cardiology 07/17/18 Cashier Checker Relationship Specialty Start Date End Date Agnes Del Rosario MD [address] [place] [address] PCP - General Family Medicine 01/12/21 Scott Pal MD [address] [address] Referring Orthopedics 06/03/19 Scott Pal MD [address] [place] [address] Home Care Provider Orthopedics 06/03/19 John Garcia MD [address], [place] [place] [address] Primary Staff Physician Cardiology 07/17/18 Cashier Checker Relationship Specialty Start Date End Date Agnes Del Rosario MD [address] [place] [address] PCP - General Family Medicine 01/12/21 Scott Pal MD [address] [address] Referring Orthopedics 06/03/19 Scott Pal MD [address] [address] Home Care Provider Orthopedics 06/03/19 John Garcia MD [address] [place] [place] [address] Primary Staff Physician Cardiology 07/17/18 Cashier Checker Relationship Specialty Start Date End Date Agnes Del Rosario MD [address] [place] [address] PCP - General Family Medicine 01/12/21 Scott Pal MD [address] [address] Referring Orthopedics 06/03/19 Scott Pal MD [address] [place] [address] Home Care Provider Orthopedics 06/03/19 John Garcia MD [address], [place] [place] [address] Primary Staff Physician Cardiology 07/17/18 Cashier Checker Relationship Specialty Start Date End Date Agnes Del Rosario MD [address] [place] [address] PCP - General Family Medicine 01/12/21 Scott Pal MD [address] [address]597 Referring Orthopedics 06/03/19 Scott Pal MD [address] 7[address]19 Home Care Provider Orthopedics 06/03/19 John Garcia MD [address] [place] [place] [address] Primary Staff Physician Cardiology 07/17/18 ProviderAaliyah MD Director Of Reimbursement 10/27/23 11/25/23 Leonila Pino, CHAD [address] [place] [address] Primary Care Care Aid 10/30/23 Cashier Checker Relationship Specialty Start Date End Date Agnes Del Rosario MD [address] [place], [place] 554561 PCP - General Family Medicine 01/12/21 Scott Pal MD [address] [address] Referring Orthopedics 06/03/19 Scott Pal MD [address] 23119256 Home Care Provider Orthopedics 06/03/19 John Garcia MD [address], [place] [place] [address] Primary Staff Physician Cardiology 07/17/18 ProviderAaliyah MD Director Of Reimbursement 10/27/23 11/25/23 Leonila Pino, CHAD [address] [place] [address] Primary Care Care Aid 10/30/23 Cashier Checker Relationship Specialty Start Date End Date Agnes Del Rosario MD [address] [place], [place] 851861 PCP - General Family Medicine 01/12/21 Scott Pal MD [address] 6[address] Referring Orthopedics 06/03/19 Scott Pal MD [address] [address]509 Home Care Provider Orthopedics 06/03/19 John Garcia MD [address], [place] [address] [place] [address] Primary Staff Physician Cardiology 07/17/18 Aaliyah Herrera MD Director Of Reimbursement 10/27/23 11/25/23 Leonila Pino, RN [address] [place] [address] Primary Care Care Aid 10/30/23 Cashier Checker Relationship Specialty Start Date End Date Agnes Del Rosario MD [address] [place] [address] PCP - General Family Medicine 01/12/21 Scott Pal MD [address] 7[address] Referring Orthopedics 06/03/19 Scott Pal MD [address] [address] Home Care Provider Orthopedics 06/03/19 John Garcia MD [address], [place] [place] [address] Primary Staff Physician Cardiology 07/17/18 Aaliyah Herrera MD Director Of Reimbursement 10/27/23 11/25/23 Leonila Pino, RN [address] [place] [address] Primary Care Care Aid 10/30/23 Cashier Checker Relationship Specialty Start Date End Date Agnes Del Rosario MD [address] [place] [address] PCP - General Family Medicine 01/12/21 Scott Pal MD [address] [place] [address]652 Referring Orthopedics 06/03/19 Scott Pal MD [address] [place] [address] 31069 Home Care Provider Orthopedics 06/03/19 John Garcia MD [address] [place] [place] [address] Primary Staff Physician Cardiology 07/17/18 Provider, MD Aaliyah Director Of Reimbursement 10/27/23 11/25/23 Leonila Pino, RN [address] [place], [place] 4627931 Primary Care Care Aid 10/30/23 Cashier Checker Relationship Specialty Start Date End Date Agnes Del Rosario MD [address] [place] [address] PCP - General Family Medicine 01/12/21 Scott Pal MD [address] [place] [address] 42501 Referring Orthopedics 06/03/19 Scott Pal MD [address] [place] [address] 97967 Home Care Provider Orthopedics 06/03/19 John Garcia MD [address], [address] [place], [place] 0013195 Primary Staff Physician Cardiology 07/17/18 ProviderAaliyah MD Director Of Reimbursement 10/27/23 11/25/23 Leonila Pino, CHAD [address] [place], [place] 2167131 Primary Care Care Aid 10/30/23 Cashier Checker Relationship Specialty Start Date End Date Agnes Del Rosario MD [address] [place], [place] 162731 PCP - General Family Medicine 01/12/21 Scott Pal MD [address] [place] [address] 56562 Referring Orthopedics 06/03/19 Scott Pal MD [address] [place] [address] 36403 Home Care Provider Orthopedics 06/03/19 John Garcia MD [address] [place] [place] [address] Primary Staff Physician Cardiology 07/17/18 ProviderAaliyah MD Director Of Reimbursement 10/27/23 11/25/23 Leonila Pino, CHAD [address] [place] [address] Primary Care Care Aid 10/30/23 Cashier Checker Relationship Specialty Start Date End Date Agnes Del Rosario MD [address] [place], [place] 100561 PCP - General Family Medicine 01/12/21 Scott Pal MD [address] [address] Referring Orthopedics 06/03/19 Scott Pal MD [address] [address] Home Care Provider Orthopedics 06/03/19 John Garcia MD [address], [place] [address] [place] [address] Primary Staff Physician Cardiology 07/17/18 Cashier Checker Relationship Specialty Start Date End Date Agnes Del Rosario MD [address] [place], [place] 692761 PCP - General Family Medicine 01/12/21 Scott Pal MD [address] [address] Referring Orthopedics 06/03/19 Scott Pal MD [address] [address]329 Home Care Provider Orthopedics 06/03/19 John Garcia MD [address], [place] [place] [address] Primary Staff Physician Cardiology 07/17/18 Cashier Checker Relationship Specialty Start Date End Date Agnes Del Rosario MD [address] [place], [place] 798321 PCP - General Family Medicine 01/12/21 Scott Pal MD [address] [address] Referring Orthopedics 06/03/19 Scott Pal MD [address] [address] Home Care Provider Orthopedics 06/03/19 John Garcia MD [address], [place] [place] [address] Primary Staff Physician Cardiology 07/17/18 Cashier Checker Relationship Specialty Start Date End Date Agnes Del Rosario MD [address] [place], [place] 679671 PCP - General Family Medicine 01/12/21 Scott Pal MD [address] [address] Referring Orthopedics 06/03/19 Scott Pal MD [address] [address]44 Home Care Provider Orthopedics 06/03/19 John Garcia MD [address], [place] [place] [address] Primary Staff Physician Cardiology 07/17/18 Cashier Checker Relationship Specialty Start Date End Date Agnes Del Rosario MD [address] [place], [place] 926741 PCP - General Family Medicine 01/12/21 Scott Pal MD [address] [address] Referring Orthopedics 06/03/19 Scott Pal MD [address] [place] [address] 07133 Home Care Provider Orthopedics 06/03/19 John Garcia MD [address], [place] [place] [address] Primary Staff Physician Cardiology 07/17/18 Cashier Checker Relationship Specialty Start Date End Date Agnes Del Rosario MD [address] [place], [place] 268461 PCP - General Family Medicine 01/12/21 Scott Pal MD [address] [place] [address]79 Referring Orthopedics 06/03/19 Scott Pal MD [address] [place] [address] 86573 Home Care Provider Orthopedics 06/03/19 Caroline Fitzgerald, PT [address] [place], [place] 5042031 Timber Management Professor Acute Care 06/07/19 05/17/23 John Garcia MD [address], [place] [place] [address] Primary Staff Physician Cardiology 07/17/18 Cashier Checker Relationship Specialty Start Date End Date Agnes Del Rosario MD [address] [place] [address] PCP - General Family Medicine 01/12/21 Scott Pal MD [address] [address] Referring Orthopedics 06/03/19 Scott Pal MD [address] [address] Home Care Provider Orthopedics 06/03/19 John Garcia MD [address], [place] [place] [address] Primary Staff Physician Cardiology 07/17/18 Cashier Checker Relationship Specialty Start Date End Date Agnes Del Rosario MD [address] [place], [place] 256011 PCP - General Family Medicine 01/12/21 Scott Pal MD [address] [place] [address] 54[address] Referring Orthopedics 06/03/19 Scott Pal MD [address] [place] [address] 40479 Home Care Provider Orthopedics 06/03/19 John Garcia MD [address], [place] [place] [address] Primary Staff Physician Cardiology 07/17/18 Cashier Checker Relationship Specialty Start Date End Date Agnes Del Rosario MD [address] [place] [address] PCP - General Family Medicine 01/12/21 Scott Pal MD [address] 91741 Referring Orthopedics 06/03/19 Scott Pal MD [address] 5[address] Home Care Provider Orthopedics 06/03/19 John Garcia MD [address], [address] [place] [address] Primary Staff Physician Cardiology 07/17/18 Cashier Checker Relationship Specialty Start Date End Date Agnes Del Rosario MD [address] [place], [place] 553831 PCP - General Family Medicine 01/12/21 Scott Pal MD [address] [place] [address] 37446 Referring Orthopedics 06/03/19 Scott Pal MD [address] [place] [address] 7[address]50 Home Care Provider Orthopedics 06/03/19 John Garcia MD [address], [address] [place] [address] Primary Staff Physician Cardiology 07/17/18 Cashier Checker Relationship Specialty Start Date End Date Agnes Del oRsario MD [address] [place] [address] PCP - General Family Medicine 01/12/21 Scott Pal MD [address] [place] [address] 54897 Referring Orthopedics 06/03/19 Scott Pal MD [address] [address] Home Care Provider Orthopedics 06/03/19 John Garcia MD [address], [place] [place] [address] Primary Staff Physician Cardiology 07/17/18 Cashier Checker Relationship Specialty Start Date End Date Agnes Del Rosario MD [address] [place], [place] 197201 PCP - General Family Medicine 01/12/21 Scott Pal MD [address] [place] [address] 87347 Referring Orthopedics 06/03/19 Scott Pal MD [address] [place] [address] 8[address]59 Home Care Provider Orthopedics 06/03/19 John Garcia MD [address], [place] [place] [address] Primary Staff Physician Cardiology 07/17/18 Cashier Checker Relationship Specialty Start Date End Date Agnes Del Rosario MD [address] [place] [address] PCP - General Family Medicine 01/12/21 Scott Pal MD [address] [place] [address] 18446 Referring Orthopedics 06/03/19 Scott Pal MD [address] [address] Home Care Provider Orthopedics 06/03/19 John Garcia MD [address], [place] [place] [address] Primary Staff Physician Cardiology 07/17/18 Cashier Checker Relationship Specialty Start Date End Date Agnes Del Rosario MD [address] [place] [address] PCP - General Family Medicine 01/12/21 Scott Pal MD [address] [place] [address] 21770 Referring Orthopedics 06/03/19 Scott Pal MD [address] [place] [address] 90159 Home Care Provider Orthopedics 06/03/19 John Garcia MD [address], [place] [place] [address] Primary Staff Physician Cardiology 07/17/18 Cashier Checker Relationship Specialty Start Date End Date Agnes Del Rosario MD [address] [place] [address] PCP - General Family Medicine 01/12/21 Scott Pal MD [address] [place] [address] 18610 Referring Orthopedics 06/03/19 Scott Pal MD [address] [address] Home Care Provider Orthopedics 06/03/19 John Garcia MD [address], [place] [place] [address] Primary Staff Physician Cardiology 07/17/18 Cashier Checker Relationship Specialty Start Date End Date Agnes Del Rosario MD [address] [place] [address] PCP - General Family Medicine 01/12/21 Scott Pal MD [address] [place] [address] 59493 Referring Orthopedics 06/03/19 Scott Pal MD [address] [place] [address] 37288 Home Care Provider Orthopedics 06/03/19 John Garcia MD [address], [place] [place] [address] Primary Staff Physician Cardiology 07/17/18 Cashier Checker Relationship Specialty Start Date End Date Agnes Del Rosario MD [address] [place] [address] PCP - General Family Medicine 01/12/21 Scott Pal MD [address] [place] [address] 85063 Referring Orthopedics 06/03/19 Scott Pal MD [address] [address]354 Home Care Provider Orthopedics 06/03/19 John Garcia MD [address], [place] [place] [address] Primary Staff Physician Cardiology 07/17/18 Cashier Checker Relationship Specialty Start Date End Date Agnes Del Rosario MD [address] [place] [address] PCP - General Family Medicine 01/12/21 Scott Pal MD [address] [place] [address] 07682 Referring Orthopedics 06/03/19 Scott Pal MD [address] [place] [address] 00476 Home Care Provider Orthopedics 06/03/19 John Garcia MD [address], [place] [place] [address] Primary Staff Physician Cardiology 07/17/18 Cashier Checker Relationship Specialty Start Date End Date Agnes Del Rosario MD [address] [place], [place] 875311 PCP - General Family Medicine 01/12/21 Scott Pal MD [address] [address] Referring Orthopedics 06/03/19 Scott Pal MD [address] [place] [address] 36648 Home Care Provider Orthopedics 06/03/19 John Garcia MD [address], [place] [place] [address] Primary Staff Physician Cardiology 07/17/18 Cashier Checker Relationship Specialty Start Date End Date Agnes Del Rosario MD [address] [place], [place] 024601 PCP - General Family Medicine 01/12/21 Scott Pal MD [address] [place] [address] Referring Orthopedics 06/03/19 Scott Pal MD [address] [place] [address] Home Care Provider Orthopedics 06/03/19 John Garcia MD [address], [place] [place] [address] Primary Staff Physician Cardiology 07/17/18 Mitchel Walters, CHAD [address] [place] [address] Primary Care Care Aid 03/29/24 Cashier Checker Relationship Specialty Start Date End Date Agnes Del Rosario MD [address] [place], [place] [id number] PCP - General Family Medicine 01/12/21 Scott Pal MD [address] [address] Referring Orthopedics 06/03/19 Scott Pal MD [address] [address] Home Care Provider Orthopedics 06/03/19 John Garcia MD [address], Desk [address] [place], [place] [id number] Primary Staff Physician Cardiology 07/17/18 Mitchel Walters, CHAD [address] [place], [place] [phone] Primary Care Care Aid 03/29/24 Cashier Checker Relationship Specialty Start Date End Date Agnes Del Rosario MD [facility] [place] [address] PCP - General Family Medicine 01/12/[address] [facility] [address] [address] Referring Orthopedics 06/03/[address] [facility] E [address] [address] Home Care Provider Orthopedics 06/03/19 John Garcia MD [address], Desk [address] [place], [place] [id number] Primary Staff Physician Cardiology 07/17/18 Mitchel Walters, CHAD [address] [place] [address] Primary Care Care Aid 03/29/24 PodlogarMarilia APRN.COOKER SULFITE [address] [place] [address] Director Of Reimbursement [facility] 04/06/24 Cashier Checker Relationship Specialty Start Date End Date Agnes Del Rosario MD [address] [place] [address] PCP - General Family Medicine 01/12/21 Scott Pal MD [address] [id number] Referring Orthopedics 06/03/19 Scott Pal MD [address] [phone] Home Care Provider Orthopedics 06/03/19 John Garcia MD [address], Desk [address] [place], [place] [phone] Primary Staff Physician Cardiology 07/17/18 Mitchel Walters, RN [address] [place] [address] Primary Care Care Aid 03/29/24 PodlogarMarilia APRN.COOKER SULFITE [address] [place] [address] Director Of Reimbursement [facility] 04/06/24 Cashier Checker Relationship Specialty Start Date End Date Macario Duran MD [address] [facility] [place] [address] PCP - General 04/01/11 Cashier Checker Relationship Specialty Start Date End Date Agnes Del Rosario MD [address] [place] [address] PCP - General Family Medicine 01/12/21 Scott Pal MD [address] [address] Referring Orthopedics 06/03/19 Scott Pal MD [address] [address] Home Care Provider Orthopedics 06/03/19 John Garcia MD [address] [place] [address] Primary Staff Physician Cardiology 07/17/18 Podlogar, APRN. MariliaCOOKER SULFITE [address] [place] [address] Director Of Reimbursement Family Medicine 04/06/24 Cashier Checker Relationship Specialty Start Date End Date Agnes Del Rosario MD [address] [place] [address] PCP - General Family Medicine 01/12/21 Scott Pal MD [address] [address] Referring Orthopedics 06/03/19 Scott Pal MD [address] [address] Home Care Provider Orthopedics 06/03/19 John Garcia MD [address] [place] [address] Primary Staff Physician Cardiology 07/17/18 Marilia Orozco APRN.COOKER SULFITE [address] [place] [address] Director Of Reimbursement Family Medicine 04/06/24 Team Status: Inactive Member [...] April 16, 2024 End: April 16, 2024 Cashier Checker Relationship Specialty Start Date End Date Agnes Del Rosario MD [address] [place] [address] PCP - General Family Medicine 01/12/21 Scott Pal MD [address] [place] [address] Referring Orthopedics 06/03/19 Scott Pal MD [address] [place] [address] Home Care Provider Orthopedics 06/03/19 John Garcia MD [address] [facility] [place], [place] [phone] Primary Staff Physician Cardiology 07/17/18 LasahndalogMarilia stuart APRN.COOKER SULFITE [address] [place] [address] [phone] Director Of Reimbursement Family Medicine 04/06/24 Amanda Curtis APRN.COOKER SULFITE [address] [place] [address] [phone] Director Of Reimbursement [facility] 07/22/24 Cashier Checker Relationship Specialty Start Date End Date Agnes Del Rosario MD [address] [place], [place] 093191 PCP - General Family Medicine 01/12/21 Scott Pal MD [address] [place] [address] Referring Orthopedics 06/03/19 Scott Pal MD [address] [address] Home Care Provider Orthopedics 06/03/19 John Garcia MD [address], [place] [place] [address] Primary Staff Physician Cardiology 07/17/18 PodlogMarilia stuart APRN.COOKER SULFITE [address] [place] [address] Director Of Reimbursement Family Medicine 04/06/24 Amanda Curtis APRN.COOKER SULFITE [address] [place] [address] [phone] Director Of Reimbursement [facility] 07/22/24 Cashier Checker Relationship Specialty [place] [address] [place] [address] PCP - General Family Medicine 01/12/21 Scott Pal MD [address] [place] [address] Referring Orthopedics 06/03/19 Scott Pal MD [address] [address] Home Care Provider Orthopedics 06/03/19 John Garcia MD [address], [place] [place] [address] Primary Staff Physician Cardiology 07/17/18 PodlogarMarilia APRN.COOKER SULFITE [address] [place] [address] Director Of Reimbursement [facility] 04/06/24 Amanda Curtis APRN.COOKER SULFITE [address] [place], [place] 270481 [facility] 07/22/24 Cashier Checker Relationship Specialty Start Date End Date Agnes Del Rosario MD [address] [place], [place] 131881 PCP - General Family Medicine 01/12/21 Scott Pal MD [address] [address] Referring Orthopedics 06/03/19 Scott Pal MD [address] [address] Home Care Provider Orthopedics 06/03/19 John Garcia MD [address], [facility] [address] [place], [place] [phone] Primary Staff Physician Cardiology 07/17/18 PodlogarMarilia APRN.COOKER SULFITE [address] [place] [address] [facility] Family Medicine 04/06/24 Amanda Curtis APRN.COOKER SULFITE [address] [place] [address] [facility] 07/22/24 Cashier Checker Relationship Specialty Start Date End Date Agnes Del Rosario MD [address] [place], [place] 332891 PCP - General Family Medicine 01/12/21 Scott Pal MD [address] [address] Referring Orthopedics 06/03/19 Scott Pal MD [address] [address] Home Care Provider Orthopedics 06/03/19 John Garcia MD [address], Desk [address] [place], [place] [phone] Primary Staff Physician Cardiology 07/17/18 PodlogarMarilia APRN.COOKER SULFITE [address] [place] [address] Director Of Reimbursement Family Medicine 04/06/24 Amanda Curtis APRN.COOKER SULFITE [address] [place] [address] Director Of Reimbursement Family Medicine 07/22/24 Cashier Checker Relationship Specialty Start Date End Date Agnes Del Rosario MD [address] [place] [address] PCP - General Family Medicine 01/12/21 Scott Pal MD [address] [address] Referring Orthopedics 06/03/19 Scott Pal MD [address] [address] Home Care Provider Orthopedics 06/03/19 John Garcia MD [address], [place] [place] [address] Primary Staff Physician Cardiology 07/17/18 PodlogarMarilia APRN.COOKER SULFITE [address] [place] [address] Director Of Reimbursement Family Medicine 04/06/24 Amanda Curtis APRN.COOKER SULFITE [address] [place] [address] Director Of Reimbursement [facility] 07/22/24 Team Status: Inactive Member Role Status Dates Dr. Salvador eDl Rosario MD Primary Care Provider Acti ve Start: September 17, 2024 End: September 17, 2024 Dr. Salvador Del Rosario MD Referring Provider Active Start: September 17, 2024 End: September 17, 2024 Dr. Troy Valentino MD Attending Provider Active Start: September 17, 2024 End: September 17, 2024 Cashier Checker Relationship Specialty Start Date End Date Agnes Del Rosario MD [address] [place] [address] PCP - General Family Medicine 01/12/21 Scott Pal MD [address] [address] Referring Orthopedics 06/03/19 Scott Pal MD [address] [address] Home Care Provider Orthopedics 06/03/19 John Garcia MD [address], [place] [place] [address] Primary Staff Physician Cardiology 07/17/18 PodlogarMarilia APRN.COOKER SULFITE [address] [place] [address] Director Of Reimbursement Family Medicine 04/06/24 Team Status: Inactive Member [...] Provider Active St art: October 07, 2024 Cashier Checker Relationship Specialty Start Date End Date Agnes Del Rosario MD [address] [place] [address] PCP - General Family Medicine 01/12/21 Scott Pal MD [address] [address] Referring Orthopedics 06/03/19 Scott Pal MD [address] [address] Home Care Provider Orthopedics 06/03/19 John Garcia MD [address], [place] [address] [place] [address] Primary Staff Physician Cardiology 07/17/18 PodlogarMarilia APRN.COOKER SULFITE [address] [place] [address] Director Of Reimbursement Family Medicine 04/06/24 Cashier Checker Relationship Specialty Start Date End Date Agnes Del Rosario MD [address] [place], [place] 494051 PCP - General Family Medicine 01/12/21 Scott Pal MD [address] [place] [address] Referring Orthopedics 06/03/19 Scott Pal MD [address] [place] [address] Home Care Provider Orthopedics 06/03/19 John Garcia MD [address], [place] [place] [address] Primary Staff Physician Cardiology 07/17/18 PodlogarMarilia APRN.COOKER SULFITE [address] [place] [address] Director Of Reimbursement Family Medicine 04/06/24 Cashier Checker Relationship Specialty Start Date End Date Agnes Del Rosario MD [address] [place] [address] PCP - General Family Medicine 01/12/21 Scott Pal MD [address] [address] Referring Orthopedics 06/03/19 Scott Pal MD [address] [facility] [address] [place] [address] Home Care Provider Orthopedics 06/03/19 John Garcia MD [address], [place] [place] [address] Primary Staff Physician Cardiology 07/17/18 PodlogarMarilia APRN.COOKER SULFITE [address] [place] [address] Director Of Reimbursement [facility] 04/06/24 Amanda Curtis APRN.COOKER SULFITE [address] [place], [place] 134801 [facility] Team Status: Active Member Role Status [...] Attending Provider Active Start: October 22, 2024 Cashier Checker Relationship Specialty Start Date End Date Agnes Del Rosario MD [address] [place], [place] 631911 PCP - General Family Medicine 01/12/21 Scott Pal MD [address] [address] Referring Orthopedics 06/03/19 Scott Pal MD [address] [address] Home Care Provider Orthopedics 06/03/19 John Garcia MD [address] [facility] [address] [place], [place] [phone] Primary Staff Physician Cardiology 07/17/18 PodlogarMarilia APRN.COOKER SULFITE [address] [place], [place] 910851 Director Of Reimbursement Family Medicine 04/06/24 Amanda Curtis APRN.COOKER SULFITE [facility]0 [place], [place] [phone] Director Of Reimbursement Family Medicine 10/10/24 Team Status: Inactive Member [...] Acti ve Start: October 22, 2024 Dr. Manule Alvarez MD Emergency Provider Active Start: October [...] Attending Provider Active Start: October 23, 2024 Cashier Checker Relationship Specialty Start Date End Date Agnes Del Rosario MD [address] [place] [address] PCP - General Family Medicine 01/12/[address] [facility] E [facility] [address] [place] [address] Referring Orthopedics 06/03/19 Scott Pal MD [address] [address] Home Care Provider Orthopedics 06/03/19 John Garcia MD [address], [place] [place] [address] Primary Staff Physician Cardiology 07/17/18 PodlogarMarilia APRN.COOKER SULFITE [address] [place] [address] Director Of Reimbursement Family Medicine 04/06/24 Amanda Curtis APRN.COOKER SULFITE [address] [place] [address] [phone] Director Of Reimbursement Family Medicine 10/10/24 John Dunlap, senior loan officer Care Aid 10/25/24 Cashier Checker Relationship Specialty Start Date End Date Agnes Del Rosario MD [address] [place], [place] 508171 PCP - General Family Medicine 01/12/21 Scott Pal MD [address] [address] Referring Orthopedics 06/03/19 Scott Pal MD [address] [address] Home Care Provider Orthopedics 06/03/19 John Garcia MD [address], [address] [place] [address] Primary Staff Physician Cardiology 07/17/18 PodlogarMarilia APRN.COOKER SULFITE [address] [place] [address] Director Of Reimbursement [facility] 04/06/24 Amanda Curtis APRN.COOKER SULFITE [address] [place] [address] Director Of Reimbursement [facility] 10/10/24 John Dunlap RN Primary Care Care Aid 10/25/24 Cashier Checker Relationship Specialty Start Date End Date Agnes Del Rosario MD [facility] [place] [address] PCP - General Family Medicine 01/12/21 Scott Pal MD [address] [address] Referring Orthopedics 06/03/19 Scott Pal MD [address] [phone] Home Care Provider Orthopedics 06/03/19 John Garcia MD [address], [facility] [address] [place] [address] Primary Staff Physician Cardiology 07/17/18 PodlogarMarilia APRN.COOKER SULFITE [address] [place] [address] [facility] 04/06/24 Amanda Curtis APRN.COOKER SULFITE [address] [place] [address] [facility] 10/10/24 John Dunlap RN Primary Care Care Aid 10/25/24 Cashier Checker Relationship Specialty Start Date End Date Agnes Del Rosario MD [address] [place], [place] [id number] PCP - General Family Medicine 01/12/21 Scott Pal MD [address] [address] Referring Orthopedics 06/03/19 Scott Pal MD [address] [address] Home Care Provider Orthopedics 06/03/19 John Garcia MD [address], Desk [address] [place], [place] 2810295 Primary Staff Physician Cardiology 07/17/18 PodlogarMarilia APRN.COOKER SULFITE [address] [place], [place] 307571 Director Of Reimbursement Family Medicine 04/06/24 Amanda Curtis APRN.COOKER SULFITE [address] [place], [place] [phone] Director Of Reimbursement Family Medicine 10/10/24 John Dunlap RN Primary Care Care Aid 10/25/24 Team Status: Active Member Role/Relationship Status [...] November 06, 2024 End: November 06, 2024 Cashier Checker Relationship Specialty Start Date End Date Agnes Del Rosario MD [address] [place] [address] PCP - General Family Medicine 01/12/21 Scott Pal MD [address] [address] Referring Orthopedics 06/03/19 Scott Pal MD [address] [address] Home Care Provider Orthopedics 06/03/19 John Garcia MD [address], [address] [place], [place] [phone] Primary Staff Physician Cardiology 07/17/18 PodlogarMarilia APRN.COOKER SULFITE [address] [place], [place] 590281 Director Of Reimbursement Family Medicine 04/06/24 Amanda Curtis APRN.COOKER SULFITE [address] [place], [place] [phone] Director Of Reimbursement Family Medicine 10/10/24 John Dunlap, senior loan officer Care Aid 10/25/24 Cashier Checker Relationship Specialty Start Date End Date Agnes Del Rosario MD [address] [place], [place] [id number] PCP - General Family Medicine 01/12/21 Scott Pal MD [address] [address] Referring Orthopedics 06/03/19 Scott Pal MD [address] [address] Home Care Provider Orthopedics 06/03/19 John Garcia MD [address] [place] [address] Primary Staff Physician Cardiology 07/17/18 PodlogMarilia stuart APRN.COOKER SULFITE [address] [place], [place] 455901 Director Of Reimbursement Family Medicine 04/06/24 Amanda Curtis APRN.COOKER SULFITE [address] [place], [place] 967161 [facility] 10/10/24 Team Status: Inactive Member [...] S tart: October 22, 2024 Dr. Alex Shre , Attending Provider Active Start: October 22, [...] Provider Active St art: December 26, 2024 Cashier Checker Relationship Specialty Start Date End Date Macario Duran MD [address] [place] [address] PCP - General 04/01/11 Goals (unrecognized section and content) Goals may be documented in a n alternate sectionGoals may be documented in an alternate section (unrecognized sect ion and content) No Status Records FoundNo Status Records FoundNo Status Records FoundNo Status Records FoundNo Status Records FoundNo Status Records Found INFORMATION SOURCE (unrecogn ized section and content) DATE CREATED AUTHOR 01/10/2023 [facility] DATE CREATED AUTHOR AUTHOR'S ORGANIZ ATION 01/22/2024 [facility] DATE CREATED AUTHOR AUTHOR'S ORGANIZ ATION 09/27/2024 [facility] DATE CREATED AUTHOR AUTHOR'S ORGANIZ ATION 12/24/2024 [facility] DATE CREATED AUTHOR AUTHOR'S ORGANIZ ATION 01/18/2025 [facility] DATE CREATED AUTHOR AUTHOR'S ORGANIZ ATION 02/06/2025 [facility] FOR RECORDS PERTAINING TO PATIENTS WHO [...] BE BASED ON THE PRIMARY CLINICAL RECORDS. [employer] provides no warranty or guarantee of the accuracy or completeness of information in this document.
[2025-02-15 19:55] LABS: PTHIN 48 pg/mL (11-61)
--- NOTE | 2025-02-15 20:36 | ECHOCS_ITS ---
Reason For Study Reason For Study: CHF Procedure This was a 2D Doppler, Color Flow transthoracic echocardiogram. The study was technically difficult. Contrast injection was performed. Exam performed portable in ICU/CCU. Left Ventricle Normal LV size. Moderate concentric left ventricular hypertrophy. The left ventricular ejection fraction is 65 %. Stage 2 diastolic dysfunction. No regional wall motion abnormalities noted. Right Ventricle Normal RV size. Normal systolic function. Atria Normal left atrium. Normal right atrium. Mitral Valve Mitral valve not well visualized. Tricuspid Valve The tricuspid valve is not well visualized. Aortic Valve Trisinus/trileaflet aortic valve. Pulmonic Valve Normal pulmonic valve. Great Vessels Normal aortic root. The pulmonary artery is normal size. Inferior vena cava collapse with respiration. Pericardium/Pleural No pericardial effusion. Medication Diluted definity 1.5ml given slow IV push to enhance endocardial definition. MMode/2D Measurements & Calculations LVIDd: 5.0 cm IVSd: 1.4 cm LVOT diam: 2.0 cm LVIDs: 3.3 cm LVPWd: 1.5 cm FS: 34.1 % LVOT area: 3.2 cm2 Ao root diam: 3.8 cm LAV(MOD-bp): 75.2 ml LA A4 area: 25.0 cm2 LAV(MOD-bp) Indexed: 30.2 ml/m2 LAV(MOD-sp2): 58.6 ml LAV(MOD-sp4): 77.1 ml LA dimension(2D): 3.7 cm Time Measurements MV dec time: 0.18 sec Doppler Measurements & Calculations MV E max ede: 86.4 cm/sec Lat Peak E' Ede: 13.7 cm/sec Med Peak E' Ede: 9.4 cm/sec MV A max ede: 61.0 cm/sec E/E' lat: 6.3 E/E' med: 9.2 MV E/A: 1.4 MV V2 max: 97.1 cm/sec MV dec slope: 471.3 cm/sec2 Ao V2 max: 164.8 cm/sec MV max P.8 mmHg Ao max P.9 mmHg MV V2 mean: 58.9 cm/sec Ao V2 mean: 118.5 cm/sec MV mean P.6 mmHg Ao mean P.4 mmHg MV V2 VTI: 30.2 cm Ao V2 VTI: 36.3 cm MVA(VTI): 3.2 cm2 AV (velocity ratio): 0.81 ALTON(I,D): 2.6 cm2 ALTON(V,D): 2.7 cm2 LV V1 max: 138.7 cm/sec SV(LVOT): 95.1 ml PA V2 max: 94.3 cm/sec LV V1 max P.7 mmHg PA V2 mean: 68.2 cm/sec LV V1 mean P.5 mmHg LV V1 mean: 101.6 cm/sec LV V1 VTI: 29.4 cm ECHO/Echo Complete W/ Contrast Interpretation Summary Normal LV size. Moderate concentric left ventricular hypertrophy. The left ventricular ejection fraction is 65 %. Stage 2 diastolic dysfunction. Contrast injection was performed. Ordering Physician: Helen Feng Referring Physician: AGNES DEL ROSARIO Performed By: Sabina Gill RCS
[2025-02-15] MEDS: Calcium Gluconate IV 1 GM in 0.9% Normal Saline (100mL Bag) 100 ML IV (20:41)
--- NOTE | 2025-02-15 20:57 | EKG12_ITS ---
Test Reason : bradycardia Blood Pressure : */* mmHG Vent. Rate : 53 BPM Atrial Rate : 39 BPM P-R Int : 256 ms QRS Dur : 84 ms QT Int : 512 ms P-R-T Axes : 47 53 39 degrees QTcB Int : 480 ms AV Dissociation Nonspecific ST abnormality Prolonged QT Abnormal ECG When compared with ECG of 15-Feb-2025 18:21, MANUAL COMPARISON REQUIRED DATA IS UNCONFIRMED Confirmed by EMMANUEL FORD, ESTRELLITA ([id number]), image editor TRISTEN ALEXANDER ([id number]) on 02/17/2025 11:45:35 AM Referred By: Jung Confirmed By: ESTRELLITA BENITEZ MD
[2025-02-15] MEDS: Potassium Chloride Oral Tablet 20 MEQ 40 MEQ PO (21:55)
[2025-02-15 22:36] LABS: Creatinine, Urine (random) 60.00 mg/dL (39.00-259.00); Urea Nitrogen, Urine 314 mg/dL (NO RANGE EST.)
--- NOTE | 2025-02-15 22:52 | PCMCONS.TICU ---
HPI Consult Data Date of Consult: 02/15/25 HPI Narrative Reason for Consultation: Bradycardia, Acute CHF systolic Vs Diastolic HPI Narrative: FRAN PAREKH, is a 79-year-old male with a history of hypertension, hypothyroidism, PE on Eliquis who presented for SOB and fatigue. Patient had SOB and fatigue for about 10 days and symptoms have been worsening. Patient has not taken his diuretics for last 1 week and has gradually been gaining weight. Patient has visited urgent care this afternoon and was sent to ER due to 10lbs weight gain. Patient was found to be bradycardic in ER. Patient was found to be in 3rd degree heart block on EKG therefore cardiology Dr. Velez was consulted. Patient hemodynamically stable therefore no transvenous pacer placed. Patient denies fever, chills, diaphoresis, chest pain. [facility] Medical History Ambulates with cane Arthritis Injury of back Back pain Migraine headache Injury of head and neck Non-smoker CPAP (continuous positive airway pressure) dependence Shortness of breath on exertion History of pain when walking History of edema Pulmonary embolism Pain Morbid obesity with BMI of 40.0-44.9, adult ROSSANA (acute kidney injury) Fever Lactic acidosis Cholangitis History of biliary stent insertion Biliary stricture Cancer Wears glasses Thyroid disease Shingles Inguinal hernia Cardiology follow-up encounter History of stress test Pancreatic cyst Choledocholithiasis Current use of senior living 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 Elevated liver enzymes Pancreatic mass High cholesterol Hx of gastroesophageal reflux (GERD) Hypertension Home Medications ?Medication ?Instructions ?Recorded ?Last Taken ?Type lisinopril 40 mg tablet 40 mg PO DAILY blood pressure 01/31/13 12/25/24 History atorvastatin 40 mg tablet 40 mg PO QHS cholesterol #90 09/05/16 12/25/24 Rx TABLETS gabapentin 300 mg capsule 300 mg PO QHS nerve pain 10/22/23 12/25/24 History metoprolol succinate 50 mg 50 mg PO DAILY blood pressure 10/22/23 12/25/24 History tablet,extended release 24 hr apixaban 5 mg tablet (Eliquis) 5 mg PO BID blood thinner 03/26/24 12/23/24 History hydrochlorothiazide 25 mg tablet 25 mg PO DAILY reduce fluid 03/26/24 12/25/24 History levothyroxine 125 mcg tablet 125 mcg PO DAILY disorder of 03/26/24 12/25/24 History thyroid gland aspirin 81 mg tablet,delayed 81 mg PO DAILY 08/31/24 12/25/24 History release (Adult Aspirin Regimen) multivitamin (Daily Multi-Vitamin 1 tab PO DAILY 08/31/24 12/25/24 History tablet) acetaminophen 500 mg tablet 1,000 mg PO DAILY 12/25/24 02/15/25 History (Acetaminophen Extra Strength) Allergy/AdvReac Type Severity Reaction Status Date / Time azithromycin (From Zithromax) Allergy Itching Verified 02/15/25 12:51 bee venom protein (honey bee) AdvReac Swelling Verified 02/15/25 12:51 venom-wasp (wasps) AdvReac Swelling Verified 02/15/25 12:51 Surgical History History of total right hip arthroplasty S/P carpal tunnel release History of tonsillectomy History of ERCP Social History Smoking Status: Never smoker ROS ROS Narrative As per HPI Objective Data Objective Data Vital Signs: Vital Signs Last response Temperature 36.9 C 02/15/25 22:00 Temperature Source Temporal 02/15/25 22:00 Pulse Rate 56 L 02/15/25 22:00 Respiratory Rate 26 H 02/15/25 22:00 Respiratory Effort Short of Breath 02/15/25 21:00 Respiratory Depth Normal 02/15/25 21:00 Respiratory Pattern Tachypnea 02/15/25 21:00 Blood Pressure 141/66 H 02/15/25 22:00 Blood Pressure Mean 91 02/15/25 22:00 Blood Pressure Source Monitor 02/15/25 22:00 Blood Pressure Position Semi-Fowlers 02/15/25 22:00 Blood Pressure Location Left Arm 02/15/25 22:00 Pulse Ox 94 02/15/25 22:00 Oxygen Delivery Method Room Air 02/15/25 22:00 I&O: I&O Last 24 Hours 02/14/25 02/15/25 02/15/25 23:59 11:59 23:59 Intake Total 360 / 360 Output Total 350 / 350 Balance 10 I&O: Total Stay 02/15/25 12:50 thru 02/15/25 22:00 Intake Total 360 Output Total 350 Balance 10 Current Meds Ordered / Administered: Current meds ordered / Administered Generic Name Dose Route Start Last Admin Trade Name Aliya PRN Reason Stop Dose Admin Acetaminophen 650 mg 02/15/25 20:36 Acetaminophen 325 Mg Tablet PO Q6H PRN PRN Pain 1-10 Or Fever >100.7 Calcitriol 0.5 mcg 02/15/25 20:36 02/15/25 21:49 Calcitriol 0.25 Mcg Capsule PO 0.5 mcg DAILY PRABHA Administration Furosemide 40 mg 02/16/25 10:00 Furosemide 40 Mg/4 Ml Vial IV BID@1000,1800 PRABHA Sodium Chloride 250 mls @ 15 mls/hr 02/15/25 20:47 IV .[id number] PRN Additional IVPB Infusion Sodium Chloride 250 mls @ 15 mls/hr 02/15/25 20:47 IV .[id number] PRN Saline Flush Melatonin 10 mg 02/15/25 20:36 Melatonin 10 Mg Tablet PO QHS PRN PRN INSOMNIA Senna/Docusate Sodium 2 tablet 02/15/25 20:36 Senna/Docusate Sodium 1 Tablet PO BID PRN PRN Constipation Sodium Chloride 10 - 40 ml 02/15/25 20:47 0.9% Saline Lock 10 Ml Syringe IV UD PRN SALINE FLUSH Physical Exam Narrative PHYSICAL EXAMINATION General: no acute distress; alert and oriented x 4 HEENT: PERRL; EOMI; Anicteric Sclera; No thyromegaly, JVD, Lymphadenopathy Cardiovascular: Regular Rate and Rhythm; No murmurs, rubs, gallops; no displaced PMI Respiratory: no crackles, wheezes, or rhonchi Abdominal: Non-tender; Non-distended; Active BS x 4; No Hepatosplenomegaly Extremities: Warm, well perfused; No clubbing, cyanosis, edema2+; capillary refill < 2sec Neurological: 5/5 Motor and Sensory Upper and Lower Extremities; CN 2-12 intact Lab / Micro Data 02/15/25 13:30 02/15/25 14:28 Labs: Laboratory Results - last 24 hr 02/15/25 13:30: WBC 12.1 H, RBC 4.38 L, Hgb 13.4, Hct 41.0, MCV 93.6, MCH 30.6, MCHC 32.7, RDW Std Deviation 47.7 H, RDW Coeff of Gisella 13.9, Plt Count 211, MPV 9.7, Immature Gran % (Auto) 0.400, Neut % (Auto) 71.6 H, Lymph % (Auto) 15.8 L, [place] % (Auto) 11.1 H, Eos % (Auto) 0.7, Baso % (Auto) 0.4, Absolute Neuts (auto) 8.7 H, Absolute Lymphs (auto) 1.92, Nucleated RBC % 0, Sodium Cancelled, Potassium Cancelled, Chloride Cancelled, Carbon Dioxide Cancelled, Anion Gap Cancelled, BUN Cancelled, Creatinine Cancelled, Estim Creat Clear Calc Cancelled, Est GFR (MDRD) Non-Af Cancelled, BUN/Creatinine Ratio Cancelled, Glucose Cancelled, Calcium Cancelled, PTH Intact 48 02/15/25 14:28: Sodium 143, Potassium 3.3, Chloride 119 H, Carbon Dioxide 12.6 L, Anion Gap 11, BUN 17, Creatinine 0.94, Estim Creat Clear Calc 88.46, Est GFR (MDRD) Non-Af 82, BUN/Creatinine Ratio 17.7, Glucose 84, Calcium 5.9 L* 02/15/25 15:50: Ionized Calcium 1.25, Phosphorus 2.8, Magnesium 1.8, Total Bilirubin 1.00, Direct Bilirubin 0.43 H, AST 34, ALT 36, Alkaline Phosphatase 102, NT pro BNP II 3571 H, Total Protein 6.9, Albumin 3.7, Globulin 3.2, Vitamin D 25-Hydroxy 39.4, TSH 4.370 H 02/15/25 21:47: Ur Random Sodium 120, Urine Creatinine 60.00, Urine Potassium 27.4, Urine Chloride 139, Urine Urea Nitrogen 314 ABG Data ABG results: ABG 02/15/25 17:36 Specimen Type SEYMOUR Sample Site Not entered VBG pH 7.42 VBG pO2 26 VBG HCO3 23 VBG Total CO2 24 VBG O2 Sat (Calc) 51 VBG Base Excess -2 L POC Mix VBG pCO2 Pt Tmp 35.4 L O2 Delivery Device Not entered Imaging Radiology Impression Chest X-Ray 02/15/25 13:40 IMPRESSION: Perihilar interstitial densities may represent pulmonary edema. Pneumonia can not be excluded. Reading Location: [facility] Assessment and Plan . Assessment and plan: #AV Block 3rd degree #Bradycardia, asymptomatic #Acute CHF systolic vs diastolic #Volume overload #HTN #Hypothyroid #PE on Eliquis Plan -Monitor patient's hemodynamics and cardiac status in ICU -bedside Atropine -Place transcutaneous pacer leads -Dopamine or epinephrine drip if patient becomes hypotensive -Monitor Troponin -TSH - 4.37 -Hold all Rate limiting meds -Cardiology consulted in ER, Dr. Velez -2 Decho -Diuresis as tolerated -Replace electrolytes and recheck -Daily weights -Monitor I/O's -Continue levothyroxine -Check lower ext Dopplers -Hold Eliquis for now -DVT px - SCD for now, start on IV heparin in 24 to 48hrs Critical Care Time:65mins The entirety of this encounter was done via Telemedicine
--- NOTE | 2025-02-15 22:53 | VDLE_ITS ---
Reason For Study Reason For Study: BLE SWelling RIGHT LEFT GSV is normal. GSV is normal. CFV is compressible, spontaneous, phasic, competent CFV is compressible, spontaneous, phasic, competent, and demonstrates normal augmentation. and demonstrates normal augmentation. FV is compressible, spontaneous, phasic, competent FV is compressible, spontaneous, phasic, competent and demonstrates normal augmentation. and demonstrates normal augmentation. POP V is compressible, spontaneous, phasic, competent POP V is compressible, spontaneous, phasic, competent and demonstrates normal augmentation. and demonstrates normal augmentation. T/P Trunk is compressible. T/P Trunk is compressible. PTV is compressible. PTV is compressible. RT PerV is compressible. LT PerV is compressible. Procedure This is a venous duplex using B-mode, color flow and spectral Doppler. Exam performed portable in ICU/CCU. The exam was diagnostic. A preliminary report was called and/or faxed to [facility]. VL/Venous Duplex US - [place] Extrem Interpretation Summary Deep veins of the lower extremities are bilaterally patent and compressible seg mentally. There is no evidence of deep vein thrombosis on either side. Valvular competence appears intact within the p roximal deep venous systems bilaterally. The great saphenous veins appear bilaterally patent and compressible segmentall y. Ordering Physician: Randy Wright Referring Physician: Salvador Diaz Performed By: Donaldo Moya RVT
[2025-02-16] VITALS (28 sets, daily range): BP systolic 128–162; BP diastolic 54–102; PULSE 49–70; RESP 14–32; TEMP 36.1–38.7; O2SAT 92–99; BMI 41.7
[2025-02-16 00:38] LABS: Anion Gap 13 (5-15); BUN 21 mg/dL (4-19); BUN/Creat Ratio 14.8 RATIO (10-20); Calcium,Total 8.9 mg/dL (7.6-11.0); Carbon Dioxide 22.3 mmol/L (21.0-32.0); Chloride 105 mmol/L (98-108); Estimated Creatinine Clearance 59.18 ml/min (50-250); Glucose 120 mg/dL (70-99); Potassium 3.9 mmol/L (3.3-5.1)
[2025-02-16 04:07] LABS: Hematocrit 36.8 % (40-54); Hemoglobin 12.1 g/dL (13.0-16.5); Immature Granulocytes Count 0.050 X10^3/uL (0.0-0.0); Mean Corp Hgb Conc 32.9 g/dL (32-36); Mean Corpuscular Volume 92.0 fL (80-94); Mean Platelet Vol. 9.7 fl (6.2-12.0); NRBC Flagged by Analyzer 0 % (0-5); Platelet Count 202 K/mm3 (150-450); RBC Distribution Width CV 13.8 % (11.6-14.6); RBC Distribution Width SD 46.5 fl (35.1-43.9); Red Blood Count 4.00 M/mm3 (4.6-6.2); White Blood Count 12.5 K/mm3 (4.4-11.0)
[2025-02-16 04:27] LABS: AST(SGOT) 24 U/L (<=37); Alanine Aminotransfer ALT/SGPT 27 U/L (<=46); Albumin, Serum 3.4 g/dL (3.4-4.8); Alkaline Phosphatase 80 U/L (40-129); Anion Gap 12 (5-15); BUN 21 mg/dL (4-19); BUN/Creat Ratio 15.2 RATIO (10-20); Calcium,Total 8.8 mg/dL (7.6-11.0); Carbon Dioxide 22.2 mmol/L (21.0-32.0); Chloride 106 mmol/L (98-108); Cholesterol 91 mg/dL (<=200); Estimated Creatinine Clearance 59.18 ml/min (50-250); Globulin 2.8 g/dL (2.2-4.2); Glucose 108 mg/dL (70-99); Low Density Lipoprotein Calc. 36 mg/dL; Magnesium 1.7 mg/dL (1.5-2.2); Potassium 3.9 mmol/L (3.3-5.1); Triglycerides 72 mg/dL; Very Low Density Lipoprotein 14 mg/dL (5-40); cholesterol:hdl ratio screen 2.32
--- NOTE | 2025-02-16 09:08 | CON.PCM.CA_ITS ---
Assessment & Plan Assessment/Plan (1) Isorhythmic AV dissociation: PLAN: Patient appears to be having isorhythmic A-V dissociation. Review of previous EKGs from earlier this year demonstrates sinus rhythm and then also rhythms with junctional component. Mobitz type I cannot be completely excluded. My recommendation at this time would be to discontinue the beta-adebayo and observe his rhythm. Obtain an echocardiogram to assess ventricular function At this time I do not think there is any indication for permanent pacemaker implantation. (2) CHF (congestive heart failure): PLAN: Patient appears to have evidence of congestive heart failure likely diastolic cardiac mediated. I would also recommend an echocardiogram to reassess the left ventricular function. Depending on those results further recommendations will be made. HPI Consult Data Date of Consult: 02/16/25 HPI Narrative HPI Narrative: FRAN PAREKH, is a 79 M who presents with a history of hypertension hypothyroidism who presented to the emergency room with weight gain and increased shortness of breath. He apparently had discontinued taking his diuretics because he learned about that on Facebook. He denies any chest pain but he has had chronic pedal edema. He says that he had seen the specialist at the [facility] who felt that there was a problem with his veins and he was treated with leg wrapping a number of years ago. He however has not seen any other cardiac physician or specialist regarding this. He had been on his stable medications and as noted above he discontinued his diuretic presented to the emergency room was noted to be in relative volume overload his EKG was done which demonstrated A-V dissociation and cardiology was called for further evaluation and management. It was decided to place him in the intensive care unit in the meantime. This morning he is asymptomatic. He says that he is diuresing appropriately. This morning his EKG demonstrates sinus bradycardia with a rate of 59 bpm and sinus arrhythmia. [facility] Medical History Ambulates with cane Arthritis Injury of back Back pain Migraine headache Injury of head and neck Non-smoker CPAP (continuous positive airway pressure) dependence Shortness of breath on exertion History of pain when walking History of edema Pulmonary embolism Pain Morbid obesity with BMI of 40.0-44.9, adult ROSSANA (acute kidney injury) Fever Lactic acidosis Cholangitis History of biliary stent insertion Biliary stricture Cancer Wears glasses Thyroid disease Shingles Inguinal hernia Cardiology follow-up encounter History of stress test Pancreatic cyst Choledocholithiasis 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 Elevated liver enzymes Pancreatic mass High cholesterol Hx of gastroesophageal reflux (GERD) Hypertension Home Medications ?Medication ?Instructions ?Recorded ?Last Taken ?Type lisinopril 40 mg tablet 40 mg PO DAILY blood pressur e 01/31/13 12/25/24 History atorvastatin 40 mg tablet 40 mg PO QHS cholesterol #90 09/05/16 12/25/24 Rx TABLETS gabapentin 300 mg capsule 300 mg PO QHS nerve pain 12/25/24 History metoprolol succinate 50 mg 50 mg PO DAILY blood pressu re 10/22/23 12/25/24 History tablet,extended release 24 hr apixaban 5 mg tablet (Eliquis) 5 mg PO BID blood thinn er 03/26/24 12/23/24 History hydrochlorothiazide 25 mg tablet 25 mg PO DAILY reduce fluid 03/26/24 12/25/24 History levothyroxine 125 mcg tablet 125 mcg PO DAILY disorder of 03/26/24 12/25/24 History thyroid gland aspirin 81 mg tablet,delayed 81 mg PO DAILY 08/31/24 0 12/25/24 History release (Adult Aspirin Regimen) multivitamin (Daily Multi-Vitamin 1 tab PO DAILY 08/3112/25/24 History tablet) acetaminophen 500 mg tablet 1,000 mg PO DAILY 12/25/24 02/15/25 History (Acetaminophen Extra Strength) Allergy/AdvReac Type Severity Reaction Status Date / Time azithromycin (From Zithromax) Allergy Itching Verified 02/15/25 12:51 bee venom protein (honey bee) AdvReac Swelling Verified 02/15/25 12:51 venom-wasp (wasps) AdvReac Swelling Verified 02/15/25 12:51 Surgical History History of total right hip arthroplasty S/P carpal tunnel release History of tonsillectomy History of ERCP Social History Smoking Status: Never smoker ROS Constitutional Constitutional: Denies fever(s) or weight loss Eyes Eyes: Reports systems reviewed and no addt'l complaints, except as documented ENT HEENT: Reports systems reviewed and no addt'l complaints, except as documented Cardiovascular Cardiovascular: Reports dyspnea at rest, dyspnea on exertion and leg edema; Denies chest pain at rest, chest pain with activity, edema, palpitations or paroxysmal nocturnal dyspnea Respiratory/Chest Respiratory/Chest: Reports dyspnea on exertion, shortness of breath at rest and shortness of breath with exertion; Denies productive cough Gastrointestinal Gastrointestinal: Denies change in bowel habits, nausea, vomiting or weight changes Genitourinary Genitourinary: Denies difficulty urinating Musculoskeletal Musculoskeletal: Denies joint stiffness or muscle weakness Integumentary Integumentary: Denies lesions Neurologic Neurologic: Denies dizziness or syncope Psychiatric Psychiatric: Denies anxiety Endocrine Endocrinology: Denies excessive sweating or fatigue Hematologic/Lymphatic Hematologic/Lymphatic: Denies anemia Allergic/Immunologic Allergic/Immunologic: Denies seasonal rhinorrhea Physical Exam Const alert and oriented x3 Orientation / Consciousness: awake HEENT normocephalic Eyes PERRL Neck full ROM Carotids: normal carotid upstroke Chest inspection of chest normal Resp normal respiratory effort Cardio regular rate and regular rhythm Heart Sounds: S1 normal and S2 normal GI normal to inspection, nondistended, normoactive bowel sounds Extremity General Extremity: edema Objective Data Vital Signs: Vital Signs Temp Pulse Resp BP Pulse Ox O2 Del Method 98.5 F 57 L 30 H 148/64 H 96 Room Air 02/16/25 02:00 02/16/25 07:00 02/16/25 07:00 02/16/25 07:00 02/16/25 07:00 02/16/25 07:00 Oxygen Delivery Method Room Air Weight: 298 lb 15.149 oz Body Mass Index (BMI) 41.7 Intake & Output: Intake and Output for Last 24 Hours 02/14/25 02/15/25 02/16/25 23:59 23:59 23:59 Intake Total 360 / 610 250 / 250 Output Total 350 / 350 250 / 250 Balance 10 260 0 / 0 Lab / Micro Data 02/16/25 04:00 02/16/25 04:00 Labs: Laboratory Results - last 24 hr 02/15/25 13:30: WBC 12.1 H, RBC 4.38 L, Hgb 13.4, Hct 41.0, MCV 93.6, MCH 30.6, MCHC 32.7, RDW Std Deviation 47.7 H, RDW Coeff of Gisella 13.9, Plt Count 211, MPV 9.7, Immature Gran % (Auto) 0.400, Neut % (Auto) 71.6 H, Lymph % (Auto) 15.8 L, [place] % (Auto) 11.1 H, Eos % (Auto) 0.7, Baso % (Auto) 0.4, Absolute Neuts (auto) 8.7 H, Absolute Lymphs (auto) 1.92, Nucleated RBC % 0, Sodium Cancelled, Potassium Cancelled, Chloride Cancelled, Carbon Dioxide Cancelled, Anion Gap Cancelled, BUN Cancelled, Creatinine Cancelled, Estim Creat Clear Calc Cancelled, Est GFR (MDRD) Non-Af Cancelled, BUN/Creatinine Ratio Cancelled, Glucose Cancelled, Calcium Cancelled, PTH Intact 48 02/15/25 14:28: Sodium 143, Potassium 3.3, Chloride 119 H, Carbon Dioxide 12.6 L , Anion Gap 11, BUN 17, Creatinine 0.94, Estim Creat Clear Calc 88.46, Est GFR (MDRD) Non-Af 82, BUN/Creatinine Ratio 17.7, Glucose 84, Calcium 5.9 L* 02/15/25 15:50: Ionized Calcium 1.25, Phosphorus 2.8, Magnesium 1.8, Total Bilirubin 1.00, Direct Bilirubin 0.43 H, AST 34, ALT 36, Alkaline Phosphatase 102, NT pro BNP II 3571 H, Total Protein 6.9, Albumin 3.7, Globulin 3.2, Vitamin D 25-Hydroxy 39.4, TSH 4.370 H 02/15/25 21:47: Ur Random Sodium 120, Urine Creatinine 60.00, Urine Potassium 27.4, Urine Chloride 139, Urine Urea Nitrogen 314 02/15/25 23:39: Sodium Cancelled, Potassium Cancelled, Chloride Cancelled, Carbon Dioxide Cancelled, Anion Gap Cancelled, BUN Cancelled, Creatinine Cancelled, Estim Creat Clear Calc Cancelled, Est GFR (MDRD) Non-Af Cancelled, BUN/Creatinine Ratio Cancelled, Glucose Cancelled, Calcium Cancelled 02/16/25 00:00: Sodium 140, Potassium 3.9, Chloride 105, Carbon Dioxide 22.3, Anion Gap 13, BUN 21 H, Creatinine 1.40 H, Estim Creat Clear Calc 59.18, Est GFR (MDRD) Non-Af 51 L, BUN/Creatinine Ratio 14.8, Glucose 120 H, Calcium 8.9 02/16/25 04:00: WBC 12.5 H, RBC 4.00 L, Hgb 12.1 L, Hct 36.8 L, MCV 92.0, MCH 30.3, MCHC 32.9, RDW Std Deviation 46.5 H, RDW Coeff of Gisella 13.8, Plt Count 202, MPV 9.7, Immature Gran % (Auto) 0.400, Neut % (Auto) 70.6 H, Lymph % (Auto) 17.7 L, [place] % (Auto) 10.9 H, Eos % (Auto) 0.2, Baso % (Auto) 0.2, Absolute Neuts (auto) 8.8 H, Absolute Lymphs (auto) 2.20, Nucleated RBC % 0, Sodium 140, Potassium 3.9, Chloride 106, Carbon Dioxide 22.2, Anion Gap 12, BUN 21 H, C reatinine 1.40 H, Estim Creat Clear Calc 59.18, Est GFR (MDRD) Non-Af 51 L, BUN/Creatinine Ratio 15.2, Glucose 108 H, Calcium 8.8, Phosphorus 3.7, Magnesium 1.7, Total Bilirubin 1.50 H, AST 24, ALT 27, Alkaline Phosphatase 80, Total Protein 6.2, Albumin 3.4, Globulin 2.8, Albumin/Globulin Ratio 1.2, Triglycerides 72, Cholesterol 91, LDL Cholesterol, Calc 36, VLDL Cholesterol 14, HDL Cholesterol 39 L, Cholesterol/HDL Ratio 2.32 ABG Data ABG results: ABG 02/15/25 17:36 Specimen Type SEYMOUR Sample Site Not entered VBG pH 7.42 VBG pO2 26 VBG HCO3 23 VBG Total CO2 24 VBG O2 Sat (Calc) 51 VBG Base Excess -2 L POC Mix VBG pCO2 Pt Tmp 35.4 L O2 Delivery Device Not entered Cardiology Labs/Tests 02/15/25 13:30: WBC 12.1 H, RBC 4.38 L, Hgb 13.4, Hct 41.0, MCV 93.6, MCH 30.6, MCHC 32.7, Plt Count 211, MPV 9.7, Immature Gran % (Auto) 0.400, Neut % (Auto) 71.6 H, Lymph % (Auto) 15.8 L, [place] % (Auto) 11.1 H, Eos % (Auto) 0.7, Baso % (Auto) 0.4, Absolute Neuts (auto) 8.7 H, Nucleated RBC % 0, Sodium Cancelled, Potassium Cancelled, Chloride Cancelled, Carbon Dioxide Cancelled, Anion Gap Cancelled, BUN Cancelled, Creatinine Cancelled, Est GFR (MDRD) Non-Af Cancelled, BUN/Creatinine Ratio Cancelled, Glucose Cancelled, Calcium Cancelled 02/15/25 14:28: Sodium 143, Potassium 3.3, Chloride 119 H, Carbon Dioxide 12.6 L , Anion Gap 11, BUN 17, Creatinine 0.94, Est GFR (MDRD) Non-Af 82, BUN/Creatinine Ratio 17.7, Glucose 84, Calcium 5.9 L* 02/15/25 15:50: Ionized Calcium 1.25, Phosphorus 2.8, Magnesium 1.8, Total Bilirubin 1.00, Direct Bilirubin 0.43 H 02/15/25 17:36: VBG pH 7.42, VBG pO2 26, VBG HCO3 23, VBG O2 Sat (Calc) 51, VBG Base Excess -2 L 02/15/25 23:39: Sodium Cancelled, Potassium Cancelled, Chloride Cancelled, Carbon Dioxide Cancelled, Anion Gap Cancelled, BUN Cancelled, Creatinine Cancelled, Est GFR (MDRD) Non-Af Cancelled, BUN/Creatinine Ratio Cancelled, Glucose Cancelled, Calcium Cancelled 02/16/25 00:00: Sodium 140, Potassium 3.9, Chloride 105, Carbon Dioxide 22.3, Anion Gap 13, BUN 21 H, Creatinine 1.40 H, Est GFR (MDRD) Non-Af 51 L, BUN/Creatinine Ratio 14.8, Glucose 120 H, Calcium 8.9 02/16/25 04:00: WBC 12.5 H, RBC 4.00 L, Hgb 12.1 L, Hct 36.8 L, MCV 92.0, MCH 30.3, MCHC 32.9, Plt Count 202, MPV 9.7, Immature Gran % (Auto) 0.400, Neut % (Auto) 70.6 H, Lymph % (Auto) 17.7 L, [place] % (Auto) 10.9 H, Eos % (Auto) 0.2, Baso % (Auto) 0.2, Absolute Neuts (auto) 8.8 H, Nucleated RBC % 0, Sodium 140, Potassium 3.9, Chloride 106, Carbon Dioxide 22.2, Anion Gap 12, BUN 21 H, C reatinine 1.40 H, Est GFR (MDRD) Non-Af 51 L, BUN/Creatinine Ratio 15.2, Glucose 108 H, Calcium 8.8, Phosphorus 3.7, Magnesium 1.7, Total Bilirubin 1.50 H, Triglycerides 72, Cholesterol 91, VLDL Cholesterol 14, HDL Cholesterol 39 L, Cholesterol/HDL Ratio 2.32 Rhythm: EKG: ECHO: Stress Test: Cardiac Cath: PCI: CT Surgery: Holter monitor: EPS: PPM: CXR: Chest CT Scan: Radiography Diagnostic Testing: Radiology Impression Chest X-Ray 02/15/25 13:40 IMPRESSION: Perihilar interstitial densities may represent pulmonary edema. Pneumonia can not be excluded. Reading Location: [facility] Risk Score for UA/STEMI Assesmment (YES = 1) Risk Stratification Applicable: No
[2025-02-16] MEDS: 0.9% Saline Lock 10 ML Syringe IV ×2 (09:45→14:56)
--- NOTE | 2025-02-16 14:39 | PN.CC_ITS ---
Objective Data Objective Data Vital Signs: Vital Signs Last response 3 Temperature 38.1 C H 02/16/25 13:47 Temperature Source Oral 02/16/25 13:47 Pulse Rate 58 L 02/16/25 13:47 Respiratory Rate 14 02/16/25 13:47 Respiratory Effort Short of Breath 02/16/25 04:00 Respiratory Depth Normal 02/16/25 04:00 Respiratory Pattern Tachypnea 02/16/25 04:00 Blood Pressure 140/76 H 02/16/25 13:47 Blood Pressure Mean 97 02/16/25 13:47 Blood Pressure Source Monitor 02/16/25 13:47 Blood Pressure Position Semi-Fowlers 02/16/25 13:47 Blood Pressure Location Left Arm 02/16/25 13:47 Pulse Ox 98 02/16/25 13:47 Oxygen Delivery Method Room Air 02/16/25 13:47 I&O: I&O Last 24 Hours 3 02/15/25 02/16/25 02/16/25 23:59 11:59 23:59 Intake Total 360 / 610 730 / 730 Output Total 350 / 350 1350 / 1350 Balance 10 / 260 -620 / -620 I&O: Total Stay 3 02/15/25 12:50 thru 02/16/25 11:15 Intake Total 1090 Output Total 1700 Balance -610 Current Meds Ordered / Administered: Current meds ordered / Administered 3 Generic Name Dose Route Start Last Admin Trade Name Freq PRN Reason Stop Dose Admin Acetaminophen 650 mg 02/15/25 20:36 02/16/25 13:50 Acetaminophen 325 Mg Tablet PO 650 mg Q6H PRN PRN Administration Pain 1-10 Or Fever >100.7 Atropine Sulfate 1 mg 02/15/25 23:13 Atropine Sulfate 1 Mg/10 Ml Syringe IV PRN PRN Bradycardia Calcitriol 0.5 mcg 02/15/25 20:36 02/16/25 09:44 Calcitriol 0.25 Mcg Capsule PO 0.5 mcg DAILY PRABHA Administration Furosemide 40 mg 02/16/25 10:00 02/16/25 09:44 Furosemide 40 Mg/4 Ml Vial IV 40 mg BID@1000,1800 PRABHA Administration Sodium Chloride 250 mls @ 15 mls/hr 02/15/25 20:47 IV .[id number] PRN Additional IVPB Infusion Sodium Chloride 250 mls @ 15 mls/hr 02/15/25 20:47 IV .[id number] PRN Saline Flush Melatonin 10 mg 02/15/25 20:36 Melatonin 10 Mg Tablet PO QHS PRN PRN INSOMNIA Senna/Docusate Sodium 2 tablet 02/15/25 20:36 Senna/Docusate Sodium 1 Tablet PO BID PRN PRN Constipation Sodium Chloride 10 - 40 ml 02/15/25 20:47 02/16/25 09:45 0.9% Saline Lock 10 Ml Syringe IV 20 ml UD PRN Administration SALINE FLUSH Lab / Micro Data Attestation: I reviewed the patient's lab results. 02/16/25 04:00 02/16/25 04:00 Labs: Laboratory Results - last 24 hr 02/15/25 13:30: PTH Intact 48 02/15/25 14:28: Sodium 143, Potassium 3.3, Chloride 119 H, Carbon Dioxide 12.6 L , Anion Gap 11, BUN 17, Creatinine 0.94, Estim Creat Clear Calc 88.46, Est GFR (MDRD) Non-Af 82, BUN/Creatinine Ratio 17.7, Glucose 84, Calcium 5.9 L* 02/15/25 15:50: Ionized Calcium 1.25, Phosphorus 2.8, Magnesium 1.8, Total Bilirubin 1.00, Direct Bilirubin 0.43 H, AST 34, ALT 36, Alkaline Phosphatase 102, NT pro BNP II 3571 H, Total Protein 6.9, Albumin 3.7, Globulin 3.2, Vitamin D 25-Hydroxy 39.4, TSH 4.370 H 02/15/25 21:47: Ur Random Sodium 120, Urine Creatinine 60.00, Urine Potassium 27.4, Urine Chloride 139, Urine Urea Nitrogen 314 02/15/25 23:39: Sodium Cancelled, Potassium Cancelled, Chloride Cancelled, Carbon Dioxide Cancelled, Anion Gap Cancelled, BUN Cancelled, Creatinine Cancelled, Estim Creat Clear Calc Cancelled, Est GFR (MDRD) Non-Af Cancelled, BUN/Creatinine Ratio Cancelled, Glucose Cancelled, Calcium Cancelled 02/16/25 00:00: Sodium 140, Potassium 3.9, Chloride 105, Carbon Dioxide 22.3, Anion Gap 13, BUN 21 H, Creatinine 1.40 H, Estim Creat Clear Calc 59.18, Est GFR (MDRD) Non-Af 51 L, BUN/Creatinine Ratio 14.8, Glucose 120 H, Calcium 8.9 02/16/25 04:00: WBC 12.5 H, RBC 4.00 L, Hgb 12.1 L, Hct 36.8 L, MCV 92.0, MCH 30.3, MCHC 32.9, RDW Std Deviation 46.5 H, RDW Coeff of Gisella 13.8, Plt Count 202, MPV 9.7, Immature Gran % (Auto) 0.400, Neut % (Auto) 70.6 H, Lymph % (Auto) 17.7 L, [place] % (Auto) 10.9 H, Eos % (Auto) 0.2, Baso % (Auto) 0.2, Absolute Neuts (auto) 8.8 H, Absolute Lymphs (auto) 2.20, Nucleated RBC % 0, Sodium 140, Potassium 3.9, Chloride 106, Carbon Dioxide 22.2, Anion Gap 12, BUN 21 H, C reatinine 1.40 H, Estim Creat Clear Calc 59.18, Est GFR (MDRD) Non-Af 51 L, BUN/Creatinine Ratio 15.2, Glucose 108 H, Calcium 8.8, Phosphorus 3.7, Magnesium 1.7, Total Bilirubin 1.50 H, AST 24, ALT 27, Alkaline Phosphatase 80, Total Protein 6.2, Albumin 3.4, Globulin 2.8, Albumin/Globulin Ratio 1.2, Triglycerides 72, Cholesterol 91, LDL Cholesterol, Calc 36, VLDL Cholesterol 14, HDL Cholesterol 39 L, Cholesterol/HDL Ratio 2.32 ABG Data ABG results: ABG 02/15/25 17:36 Specimen Type SEYMOUR Sample Site Not entered VBG pH 7.42 VBG pO2 26 VBG HCO3 23 VBG Total CO2 24 VBG O2 Sat (Calc) 51 VBG Base Excess -2 L POC Mix VBG pCO2 Pt Tmp 35.4 L O2 Delivery Device Not entered Assessment and Plan . Assessment and plan: Assessment and plan: #AV Block #Bradycardia, asymptomatic #Acute CHF diastolic #Volume overload #HTN #Hypothyroid #PE on Eliquis Plan -Monitor patient's hemodynamics and cardiac status in ICU -bedside Atropine -Place transcutaneous pacer leads if needed per Cards -Dopamine or epinephrine drip if patient becomes hypotensive -Monitor Troponin -TSH - 4.37 -hold beta-adebayo -Hold Eliquis for now -DVT px - SCD for now, start on IV heparin in 24 to 48hrs Critical Care Time: 50 The entirety of this encounter was done via Telemedicine Physical Exam Const alert, oriented x3 and no apparent distress General Appearance: cooperative and comfortable Subjective Subjective Events reviewed. He seems comfortable. Cardiology entry noted with resect to rhythm assessment and plans.
--- NOTE | 2025-02-16 14:40 | CT_ITS ---
PROCEDURE: CT CHEST, ABD, PEL W/CONTRAST 02/16/2025 REASON FOR EXAM: SHORTNESS OF BREATH WITH NEW FEVER, VOMITING TECHNIQUE: CT CHEST, ABD, PEL W/CONTRAST coronal and Sagittal reconstruction series were provided. One or more dose reduction techniques were used (e.g., Automated exposure control, adjustment of the mA and/or kV according to patient size, use of iterative reconstruction technique. CONTRAST: Isovue 370 VOLUME: 92 mL RADIATION DOSE SUMMARY: DLP: 2778.98 mGycm COMPARISON: CTA chest 10/22/2023, abdominal CT 10/22/2024. FINDINGS: Devices: Right upper extremity PICC with catheter tip at the superior cavoatrial junction. Lungs/pleura: Small bilateral pleural effusions with adjacent atelectasis. Interstitial pulmonary edema. Clear aerated lung segments. No pneumothorax. Patent central airways. Mediastinum: Unremarkable. No lymphadenopathy. Heart: Normal in size. No pericardial effusion. Scant coronary artery calcifications. Aorta: Normal in course and caliber. Mild atherosclerotic disease. Liver: Unremarkable. Gallbladder: Unremarkable. No biliary ductal dilatation. Pneumobilia related to prior sphincterotomy and previous biliary ductal stenting. Spleen: Unremarkable. Pancreas: Simple appearing cysts in the tail of the pancreas, stable. Adrenals: Unremarkable. Kidneys: Symmetric enhancement. No hydronephrosis. Few simple renal cysts. Bladder: Unremarkable. Reproductive Organs: Unremarkable, nonenlarged prostate. Bowel: No evidence of obstruction or active inflammatory process. Normal appendix. Moderate distal colonic diverticulosis without evidence for active diverticulitis/colitis. Peritoneum / Retroperitoneum: No ascites or free air. No lymphadenopathy. Bones: Mild multilevel degenerative changes of the spine. Unchanged chronic superior endplate compression fracture deformity of T11. Right hip arthroplasty. Mild gynecomastia. CT/CT Chest, Abd, Pel w/Contrast IMPRESSION: 1. Small bilateral pleural effusions with adjacent atelectasis. No evidence of pneumonia. 2. No acute or active inflammatory intra-abdominal pathology. 3. Chronic additional ancillary findings as noted above. Reading Location: [facility]
--- NOTE | 2025-02-16 15:15 | PN.HOSP_ITS ---
Reason for Visit Chief Complaint: Shortness of breath Subjective Subjective Patient still short of breath, slightly improved from previous, no chest pain, did go on to develop nausea and vomiting without abdominal pain but was noted to be febrile and has history of gallbladder pathology so scans ordered. Objective Data Objective Data Vital Signs: Vital Signs Temp Pulse Resp BP Pulse Ox O2 Del Method 100.6 F H 58 L 14 140/76 H 98 Room Air 02/16/25 13:47 02/16/25 13:47 02/16/25 13:47 02/16/25 13:47 02/16/25 13:47 02/16/25 13:47 Oxygen Delivery Method Room Air Weight: 135.6 kg Body Mass Index (BMI) 41.7 Intake & Output: Intake and Output for Last 24 Hours 02/14/25 02/15/25 02/16/25 23:59 23:59 23:59 Intake Total 360 / 610 730 / 730 Output Total 350 / 350 1350 / 1350 Balance 10 / 260 -620 / -620 Lab / Micro Data 02/16/25 17:50 02/16/25 17:50 Labs: Laboratory Results - last 24 hr 02/15/25 13:30: PTH Intact 48 02/15/25 15:50: Ionized Calcium 1.25, Phosphorus 2.8, Magnesium 1.8, Total Bilirubin 1.00, Direct Bilirubin 0.43 H, AST 34, ALT 36, Alkaline Phosphatase 102, NT pro BNP II 3571 H, Total Protein 6.9, Albumin 3.7, Globulin 3.2, Vitamin D 25-Hydroxy 39.4, TSH 4.370 H 02/15/25 21:47: Ur Random Sodium 120, Urine Creatinine 60.00, Urine Potassium 27.4, Urine Chloride 139, Urine Urea Nitrogen 314 02/15/25 23:39: Sodium Cancelled, Potassium Cancelled, Chloride Cancelled, Carbon Dioxide Cancelled, Anion Gap Cancelled, BUN Cancelled, Creatinine Cancelled, Estim Creat Clear Calc Cancelled, Est GFR (MDRD) Non-Af Cancelled, BUN/Creatinine Ratio Cancelled, Glucose Cancelled, Calcium Cancelled 02/16/25 00:00: Sodium 140, Potassium 3.9, Chloride 105, Carbon Dioxide 22.3, Anion Gap 13, BUN 21 H, Creatinine 1.40 H, Estim Creat Clear Calc 59.18, Est GFR (MDRD) Non-Af 51 L, BUN/Creatinine Ratio 14.8, Glucose 120 H, Calcium 8.9 02/16/25 04:00: WBC 12.5 H, RBC 4.00 L, Hgb 12.1 L, Hct 36.8 L, MCV 92.0, MCH 30.3, MCHC 32.9, RDW Std Deviation 46.5 H, RDW Coeff of Gisella 13.8, Plt Count 202, MPV 9.7, Immature Gran % (Auto) 0.400, Neut % (Auto) 70.6 H, Lymph % (Auto) 17.7 L, [place] % (Auto) 10.9 H, Eos % (Auto) 0.2, Baso % (Auto) 0.2, Absolute Neuts (auto) 8.8 H, Absolute Lymphs (auto) 2.20, Nucleated RBC % 0, Sodium 140, Potassium 3.9, Chloride 106, Carbon Dioxide 22.2, Anion Gap 12, BUN 21 H, C reatinine 1.40 H, Estim Creat Clear Calc 59.18, Est GFR (MDRD) Non-Af 51 L, BUN/Creatinine Ratio 15.2, Glucose 108 H, Calcium 8.8, Phosphorus 3.7, Magnesium 1.7, Total Bilirubin 1.50 H, AST 24, ALT 27, Alkaline Phosphatase 80, Total Protein 6.2, Albumin 3.4, Globulin 2.8, Albumin/Globulin Ratio 1.2, Triglycerides 72, Cholesterol 91, LDL Cholesterol, Calc 36, VLDL Cholesterol 14, HDL Cholesterol 39 L, Cholesterol/HDL Ratio 2.32 ABG Data ABG results: ABG 02/15/25 17:36 Specimen Type SEYMOUR Sample Site Not entered VBG pH 7.42 VBG pO2 26 VBG HCO3 23 VBG Total CO2 24 VBG O2 Sat (Calc) 51 VBG Base Excess -2 L POC Mix VBG pCO2 Pt Tmp 35.4 L O2 Delivery Device Not entered Physical Exam Narrative General: Alert, oriented, still appears to feel unwell HEENT: Atraumatic, normocephalic Eyes: Anicteric, normal conjunctiva, extraocular movements grossly intact Neck: Supple Respiratory: Increased respiratory effort, diminished bilaterally primarily at the bases Cardiovascular: Regular rate GI: Nontender, protuberant, no rebound, guarding, rigidity Extremities: 1+ bilateral lower extremity edema Musculoskeletal: Moving all extremities Neuro: No overt focal neurological deficits Skin: No rashes appreciated Psych: Cooperative Assessment & Plan Assessment/Plan (1) AV heart block: PLAN: Plan # A-V dissociation -Patient appears to be in heart block on telemetry and EKG -Discussed with cardiology who reviewed EKGs and rhythm strips -Admit to ICU -Monitor on telemetry -Hold metoprolol - Giving a dose of potassium as patient is on lower limits of normal with a potassium of 3.3 -Will be giving calcium as it is unclear if this is caused or exacerbated by hypocalcemia -Hold Eliquis in the event patient needs pacemaker -Obtain echocardiogram -02/16: Discussed with cardiology, appears to have isorhythmic A-V dissociation, patient off beta-adebayo, echo ordered # Fever and vomiting -02/16: Patient developed a temperature of 100.6 earlier and only new symptom patient had was nausea, repeat labs obtained which showed white count of 13.2 which was slightly higher than earlier today though not significantly so, kidney function redemonstrated baseline, lactic within normal limits, slight increase of bili at 1.59 similar to this a.m. with no other liver abnormalities. 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 Did have UA with bacteria but minimal white cells and nitrite, did have red cells in it however, urine sent for culture, blood culture sent, patient started on Zosyn while infectious workup underway. Patient COVID-negative, respiratory panel was ordered as well and this is pending # Acute heart failure exacerbation -Possibly secondary to heart block -EKG and telemetry showing A-V dissociation and patient has no history of heart failure that he is aware of -Admit to ICU -proBNP 3571 -CXR perihilar interstitial densities which may represent pulmonary edema -Continue IV lasix - Echo ordered -Repeat echo ordered -Daily weights, I's and O's - Heart healthy diet -02/16: Continuing on IV Lasix, plan for echocardiogram tomorrow, cardiology following # Abnormal laboratory value - Calcium listed 5.9, ionized calcium verbally reported out by lab at 1.25 with a reference range 4.36 to 5.20 mg/dL - Phos normal - Mag lower limits of normal, vitamin D 39 -Albumin within normal limits - PTH still pending -Discussed with tank furnace operator, appears patient has been low normal or slightly low in past values, patient has been on hydrochlorothiazide for 10 years, it is possible that the hydrochlorothiazide was elevating his serum calcium and therefore maintaining his calcium levels and after he stopped it they dropped - It was advised to start calcitriol and IV calcium with a goal of lower limit of normal to start while additional lab workup pending -02/16: Ionized calcium actually within normal range, once this added the computer the reference range was verified and did not show any calcium abnormalities, repeat BMP also showed normal calcium, do not think patient ever had actual hypocalcemia given ionized calcium at the same time was normal, no further workup #Hx PE -September 2023 -Holding Eliquis temporarily in the event pt needs pacer -02/16: Consider resuming Eliquis or starting heparin tomorrow if applicable, if patient still not plan for intervention can likely resume home Eliquis. Appreciate cardiology recommendations Chronic medical problems and/or problems not being actively addressed during today's encounter: #Hypothyroidism -Continue Synthroid #Morbid obesity -BMI documented as 42 kg/m? at time of admission -Complicates treatment, prognosis, outcomes -Recommend weight loss and lifestyle changes #DVT ppx: SCDs Helen Feng MD Time spent in the patient's overall evaluation, decision-making process, review of diagnostic data, adjustment of management, discussion with other providers, nursing and ancillary staff involved in patient's care documentation, 60 Minutes Charges/Coding Visit Charges Inpatient E&M: 16124 Subs Hosp L3
--- NOTE | 2025-02-16 16:15 | NURSING ---
md made aware of delay in care r/t difficulty drawing labs ordered picc, picc rn in house and made aware
--- NOTE | 2025-02-16 17:06 | NURSING ---
picc rn at bedside for insertion
[2025-02-16] MEDS: 0.9% Normal Saline (250mL Bag) 250 ML 15 ML IV (17:54)
[2025-02-16] MEDS: Piperacil/Tazobactam 4.5 GM in 0.9% Normal Saline (100mL MB+) 100 ML IV (17:54)
[2025-02-16 18:06] LABS: Hematocrit 37.3 % (40-54); Hemoglobin 12.4 g/dL (13.0-16.5); Immature Granulocytes Count 0.060 X10^3/uL (0.0-0.0); Mean Corp Hgb Conc 33.2 g/dL (32-36); Mean Corpuscular Volume 92.1 fL (80-94); Mean Platelet Vol. 9.7 fl (6.2-12.0); NRBC Flagged by Analyzer 0 % (0-5); Platelet Count 217 K/mm3 (150-450); RBC Distribution Width CV 13.7 % (11.6-14.6); RBC Distribution Width SD 46.7 fl (35.1-43.9); Red Blood Count 4.05 M/mm3 (4.6-6.2); White Blood Count 13.2 K/mm3 (4.4-11.0)
[2025-02-16 18:33] LABS: AST(SGOT) 23 U/L (<=37); Alanine Aminotransfer ALT/SGPT 25 U/L (<=46); Albumin, Serum 3.4 g/dL (3.4-4.8); Alkaline Phosphatase 82 U/L (40-129); Anion Gap 13 (5-15); BUN 21 mg/dL (4-19); BUN/Creat Ratio 15.1 RATIO (10-20); Calcium,Total 8.5 mg/dL (7.6-11.0); Carbon Dioxide 23.3 mmol/L (21.0-32.0); Chloride 101 mmol/L (98-108); Estimated Creatinine Clearance 59.18 ml/min (50-250); Globulin 2.9 g/dL (2.2-4.2); Glucose 171 mg/dL (70-99); Lipase 19 U/L (13-75); Potassium 3.6 mmol/L (3.3-5.1)
[2025-02-16 18:58] LABS: Mucous, Urine 0 SEEN /hpf (<or=2+)
[2025-02-16 18:59] LABS: Color, Urine Red (Yellow); Glucose, Dipstick Normal (Normal); Ketone-Dipstick Negative (Negative); Leukocyte Esterase-Dipstick 25 /ul (Negative); Nitrite-Dipstick Negative (Negative); Occult Blood-Urine 250 /ul (Negative); Protein-Dipstick 100 mg/dl (Negative); Specific Gravity, Urine 1.010 (1.002-1.030); Urine Bilirubin Dipstick Negative (Negative)
[2025-02-16] MEDS: Lidocaine Jelly 2% 20 ML Syringe (URO-JET) 1 APPLIC TOPICAL ×2 (19:00→19:47)
[2025-02-16 19:03] LABS: Red Blood Cells-Urine > 100 SEEN /hpf (0-5); Squamous Epithelial Cells - UA 0-5 SEEN /hpf (0-5)
[2025-02-16] MEDS: Piperacil/Tazobactam 3.375 GM in 0.9% Normal Saline (50mL MB+) 50 ML IV (21:36)
[2025-02-17] VITALS (19 sets, daily range): BP systolic 88–172; BP diastolic 57–104; PULSE 51–76; RESP 16–30; TEMP 37–39.3; O2SAT 92–98; BMI 41.3
[2025-02-17 03:16] LABS: Hematocrit 35.9 % (40-54); Hemoglobin 11.9 g/dL (13.0-16.5); Immature Granulocytes Count 0.050 X10^3/uL (0.0-0.0); Mean Corp Hgb Conc 33.1 g/dL (32-36); Mean Corpuscular Volume 91.6 fL (80-94); Mean Platelet Vol. 9.8 fl (6.2-12.0); NRBC Flagged by Analyzer 0 % (0-5); Platelet Count 212 K/mm3 (150-450); RBC Distribution Width CV 13.6 % (11.6-14.6); RBC Distribution Width SD 45.7 fl (35.1-43.9); Red Blood Count 3.92 M/mm3 (4.6-6.2); White Blood Count 13.1 K/mm3 (4.4-11.0)
[2025-02-17 03:45] LABS: AST(SGOT) 24 U/L (<=37); Alanine Aminotransfer ALT/SGPT 24 U/L (<=46); Albumin, Serum 3.2 g/dL (3.4-4.8); Alkaline Phosphatase 73 U/L (40-129); Anion Gap 12 (5-15); BUN 22 mg/dL (4-19); BUN/Creat Ratio 14.4 RATIO (10-20); Calcium,Total 8.4 mg/dL (7.6-11.0); Carbon Dioxide 25.7 mmol/L (21.0-32.0); Chloride 101 mmol/L (98-108); Estimated Creatinine Clearance 54.15 ml/min (50-250); Globulin 2.8 g/dL (2.2-4.2); Glucose 137 mg/dL (70-99); Potassium 3.4 mmol/L (3.3-5.1)
[2025-02-17] MEDS: 0.9% Saline Lock 10 ML Syringe IV ×2 (06:07→20:06)
[2025-02-17] MEDS: Piperacil/Tazobactam 3.375 GM in 0.9% Normal Saline (50mL MB+) 50 ML IV ×3 (06:08→22:37)
--- NOTE | 2025-02-17 06:25 | EKG12_ITS ---
Test Reason : av dissociation/bradycardia Blood Pressure : */* mmHG Vent. Rate : 59 BPM Atrial Rate : 59 BPM P-R Int : 208 ms QRS Dur : 86 ms QT Int : 484 ms P-R-T Axes : 44 25 13 degrees QTcB Int : 479 ms Sinus bradycardia with marked sinus arrhythmia VS Junctional Rhythm ST & T wave abnormality, consider inferior ischemia Prolonged QT Abnormal ECG When compared with ECG of 17-Feb-2025 06:26, MANUAL COMPARISON REQUIRED DATA IS UNCONFIRMED Confirmed by EMMANUEL FORD, ESTRELLITA ([id number]), technical editor TRISTEN ALEXANDER ([id number]) on 02/17/2025 11:40:45 AM Referred By: Emmanuel Confirmed By: ESTRELLITA BENITEZ MD
--- NOTE | 2025-02-17 06:26 | EKG12_ITS ---
Test Reason : bradycardia Blood Pressure : */* mmHG Vent. Rate : 52 BPM Atrial Rate : 80 BPM P-R Int : * ms QRS Dur : 98 ms QT Int : 526 ms P-R-T Axes : 52 59 28 degrees QTcB Int : 489 ms Critical Test Result: AV Block Sinus rhythm with A-V dissociation and Junctional rhythm with Sinus/atrial capture Prolonged QT Abnormal ECG When compared with ECG of 15-Feb-2025 20:57, MANUAL COMPARISON REQUIRED DATA IS UNCONFIRMED Confirmed by EMMANUEL FORD, ESTRELLITA ([id number]), editorial project manager SEAN DALTON ([id number]) on 02/17/2025 10:58:45 AM Referred By: Jung Confirmed By: ESTRELLITA BENITEZ MD
--- NOTE | 2025-02-17 06:26 | EKG12_ITS ---
Test Reason : av dissociation/bradycardia Blood Pressure : */* mmHG Vent. Rate : 68 BPM Atrial Rate : * BPM P-R Int : * ms QRS Dur : 84 ms QT Int : 460 ms P-R-T Axes : * 24 19 degrees QTcB Int : 489 ms Normal sinus rhythm ST & T wave abnormality, consider inferior ischemia Prolonged QT Abnormal ECG No previous ECGs available Confirmed by EMMANUEL FORD, ESTRELLITA ([id number]), visual effects editor TRISTEN ALEXANDER ([id number]) on 02/17/2025 11:40:55 AM Referred By: Emmanuel Confirmed By: ESTRELLITA BENITEZ MD
--- NOTE | 2025-02-17 07:19 | PN.CARD_ITS ---
Subjective Subjective Patient seen and evaluated. Appears to be doing much better at this time. Objective Data Vital Signs: Vital Signs Temp Pulse Resp BP Pulse Ox O2 Del Method FiO2 102 F H 62 26 H 125/57 H 93 Room Air 21 02/17/25 07:00 02/17/25 07:00 02/17/25 07:00 02/17/25 07:00 02/17/25 07:00 02/17/25 07:00 02/16/25 22:35 Oxygen Delivery Method Room Air Weight: 295 lb 3.183 oz Body Mass Index (BMI) 41.3 Intake & Output: Intake and Output for Last 24 Hours 02/15/25 02/16/25 02/17/25 23:59 23:59 23:59 Intake Total 360 / 610 830 / 830 50 / 50 Output Total 350 / 350 3550 / 3900 800 / 800 Balance -2720 / -3070 -750 / -750 Lab / Micro Data 02/17/25 03:05 02/17/25 03:05 Labs: Laboratory Results - last 24 hr 02/16/25 17:50: WBC 13.2 H, RBC 4.05 L, Hgb 12.4 L, Hct 37.3 L, MCV 92.1, MCH 30.6, MCHC 33.2, RDW Std Deviation 46.7 H, RDW Coeff of Gisella 13.7, Plt Count 217, MPV 9.7, Immature Gran % (Auto) 0.500, Neut % (Auto) 84.2 H, Lymph % (Auto) 6.1 L, [place] % (Auto) 8.9, Eos % (Auto) 0.1, Baso % (Auto) 0.2, Absolute Neuts (auto) 11.1 H, Absolute Lymphs (auto) 0.81 L, Nucleated RBC % 0, Sodium 137, Potassium 3.6, Chloride 101, Carbon Dioxide 23.3, Anion Gap 13, BUN 21 H, Creatinine 1.40 H, Estim Creat Clear Calc 59.18, Est GFR (MDRD) Non-Af 51 L, BUN/Creatinine Ratio 15.1, Glucose 171 H, Lactic Acid 1.5, Calcium 8.5, Total Bilirubin 1.59 H, AST 23, ALT 25, Alkaline Phosphatase 82, Total Protein 6.3, Albumin 3.4, Globulin 2.9, Albumin/Globulin Ratio 1.2, Lipase 19 02/16/25 18:50: Urine Color Red, Urine Clarity Cloudy, Urine pH 6.0, Ur Specific [place] 1.010, Urine Protein 100 H, Urine Glucose (UA) Normal, Urine Ketones Negative, Urine Occult Blood 250 H, Urine Nitrite Negative, Urine Bilirubin Negative, Urine Urobilinogen 4 H, Ur Leukocyte Esterase 25 H, Urine RBC > 100 SEEN, Urine WBC 0-5 SEEN, Ur Squamous Epith Cells 0-5 SEEN, Urine Bacteria 1+, Urine Mucus 0 SEEN 02/17/25 03:05: WBC 13.1 H, RBC 3.92 L, Hgb 11.9 L, Hct 35.9 L, MCV 91.6, MCH 30.4, MCHC 33.1, RDW Std Deviation 45.7 H, RDW Coeff of Gisella 13.6, Plt Count 212, MPV 9.8, Immature Gran % (Auto) 0.400, Neut % (Auto) 79.3 H, Lymph % (Auto) 9.1 L, [place] % (Auto) 10.8 H, Eos % (Auto) 0.2, Baso % (Auto) 0.2, Absolute Neuts (auto) 10.4 H, Absolute Lymphs (auto) 1.20, Nucleated RBC % 0, Sodium 138, Potassium 3.4, Chloride 101, Carbon Dioxide 25.7, Anion Gap 12, BUN 22 H, C reatinine 1.53 H, Estim Creat Clear Calc 54.15, Est GFR (MDRD) Non-Af 46 L, BUN/Creatinine Ratio 14.4, Glucose 137 H, Calcium 8.4, Total Bilirubin 2.00 H, AST 24, ALT 24, Alkaline Phosphatase 73, Total Protein 6.1, Albumin 3.2 L, Globulin 2.8, Albumin/Globulin Ratio 1.1 Micro: Microbiology 02/16/25 16:01 Mucosa - Nasopharyngeal Respiratory Panel (PCR) - Final 02/16/25 15:20 Mucosa - Nose SARS-CoV-2, Influenza & RSV (PCR) - Final Cardiology Labs/Tests 02/16/25 17:50: WBC 13.2 H, RBC 4.05 L, Hgb 12.4 L, Hct 37.3 L, MCV 92.1, MCH 30.6, MCHC 33.2, Plt Count 217, MPV 9.7, Immature Gran % (Auto) 0.500, Neut % (Auto) 84.2 H, Lymph % (Auto) 6.1 L, [place] % (Auto) 8.9, Eos % (Auto) 0.1, Baso % (Auto) 0.2, Absolute Neuts (auto) 11.1 H, Nucleated RBC % 0, Sodium 137, Potassium 3.6, Chloride 101, Carbon Dioxide 23.3, Anion Gap 13, BUN 21 H, C reatinine 1.40 H, Est GFR (MDRD) Non-Af 51 L, BUN/Creatinine Ratio 15.1, Glucose 171 H, Lactic Acid 1.5, Calcium 8.5, Total Bilirubin 1.59 H 02/16/25 18:50: Urine Color Red, Urine Clarity Cloudy, Urine pH 6.0, Ur Specific [place] 1.010, Urine Protein 100 H, Urine Glucose (UA) Normal, Urine Ketones Negative, Urine Occult Blood 250 H, Urine Nitrite Negative, Urine Bilirubin Negative, Urine Urobilinogen 4 H, Ur Leukocyte Esterase 25 H, Urine RBC > 100 SEEN, Urine WBC 0-5 SEEN 02/17/25 03:05: WBC 13.1 H, RBC 3.92 L, Hgb 11.9 L, Hct 35.9 L, MCV 91.6, MCH 30.4, MCHC 33.1, Plt Count 212, MPV 9.8, Immature Gran % (Auto) 0.400, Neut % (Auto) 79.3 H, Lymph % (Auto) 9.1 L, [place] % (Auto) 10.8 H, Eos % (Auto) 0.2, Baso % (Auto) 0.2, Absolute Neuts (auto) 10.4 H, Nucleated RBC % 0, Sodium 138, Potassium 3.4, Chloride 101, Carbon Dioxide 25.7, Anion Gap 12, BUN 22 H, C reatinine 1.53 H, Est GFR (MDRD) Non-Af 46 L, BUN/Creatinine Ratio 14.4, Glucose 137 H, Calcium 8.4, Total Bilirubin 2.00 H Rhythm: EKG: ECHO: Stress Test: Cardiac Cath: PCI: CT Surgery: Holter monitor: EPS: PPM: CXR: Chest CT Scan: Radiography Diagnostic Testing: Radiology Impression Chest/Abdomen/Pelvis CT 02/16/25 14:40 IMPRESSION: 1. Small bilateral pleural effusions with adjacent atelectasis. No evidence of pneumonia. 2. No acute or active inflammatory intra-abdominal pathology. 3. Chronic additional ancillary findings as noted above. Reading Location: [facility] Physical Exam Const alert and oriented x3 Orientation / Consciousness: awake HEENT normocephalic Eyes PERRL Neck full ROM Carotids: normal carotid upstroke Chest inspection of chest normal Resp normal respiratory effort Cardio regular rate and regular rhythm Heart Sounds: S1 normal and S2 normal GI normal to inspection, nondistended, normoactive bowel sounds Extremity General Extremity: edema Assessment & Plan Assessment/Plan (1) Isorhythmic AV dissociation: PLAN: Patient appears to be having isorhythmic A-V dissociation. Review of previous EKGs from earlier this year demonstrates sinus rhythm and then also rhythms with junctional component. Mobitz type I cannot be completely excluded. My recommendation at this time would be to discontinue the beta-adebayo and observe his rhythm. Obtain an echocardiogram to assess ventricular function At this time I do not think there is any indication for permanent pacemaker implantation. (2) CHF (congestive heart failure): PLAN: Patient appears to have evidence of congestive heart failure likely diastolic cardiac mediated. I would also recommend an echocardiogram to reassess the left ventricular function. Depending on those results further recommendations will be made.
--- NOTE | 2025-02-17 07:34 | PN.CC_ITS ---
Assessment & Plan Assessment/Plan (1) Isorhythmic AV dissociation: (2) Fever: PLAN: Plan RECOMMENDATIONS: 1. Continue antimicrobials pending infectious workup. 2. Await results of echocardiogram. 3. Diuresis, as tolerated by hemodynamics and renal function. 4. Given persistent fevers of unclear etiology, will check autoimmune/vasculitis panels. 5. Continue Eliquis. 6. Encourage incentive spirometer use and mobilize patient as tolerated. IMPRESSIONS: 1. Isorhythmic A-V dissociation/congestive heart failure Echocardiogram is currently pending. Continue medical management per cardiology recommendations. Continue diuretics as tolerated by hemodynamics and renal function. 2. Fever of unknown origin The patient continues to have high-grade fever, noted this morning. CT chest/abdomen/pelvis demonstrated no discernible infectious etiology. However, cultures are currently pending. Recommend continuing empiric antibiotics, pending infectious workup. Given the patient's persistent fevers, we will also check an autoimmune and vasculitis panel. 3. History of pulmonary embolism in September 2023/hypertension/hyperlipidemia/hypothyroidism Agree with continuing Eliquis. Continue home medications as indicated. This note was generated with [employer] dictation software. It may contain incorrect words, spelling, and punctuation that were not noted in checking the note before signing. Subjective Subjective The patient was seen and examined at the bedside this morning. Events from the last 24 hours have been reviewed. The patient is resting comfortably in bed this morning without any specific complaints. He does continue to have a fever of unclear etiology. Tmax this morning was noted to be 102.1 ?F. The patient is documented to be overall net -3.4 L for the hospitalization. White blood cell count is mildly elevated at 13,000 with a hemoglobin of 11.9 g/dL and normal platelet count. Creatinine is stable at 1.53. Total bilirubin is elevated at 2.0. Liver function profile is within normal limits. The patient remains on antimicrobials and scheduled Lasix. Surface echocardiogram is pending. Objective Data Objective Data The patient's most recent lab work, culture data and imaging studies have all been personally reviewed. COVID, influenza and RSV PCR's were negative. Blood and urine cultures are pending. Vital Signs: Vital Signs Temp Pulse Resp BP Pulse Ox O2 Del Method FiO2 102 F H 62 26 H 125/57 H 93 Room Air 21 02/17/25 07:00 02/17/25 07:00 02/17/25 07:00 02/17/25 07:00 02/17/25 07:00 02/17/25 07:00 02/16/25 22:35 Oxygen Delivery Method Room Air Weight: 295 lb 3.183 oz Body Mass Index (BMI) 41.3 Intake & Output: Intake and Output for Last 24 Hours 02/15/25 02/16/25 02/17/25 23:59 23:59 23:59 Intake Total 360 / 610 830 / 830 50 / 50 Output Total 350 / 350 3550 / 3900 800 / 800 Balance 10 260 -2720 / -3070 -750 / -750 Lab / Micro Data Attestation: I reviewed the patient's lab results. 02/17/25 03:05 02/17/25 03:05 Labs: Laboratory Results - last 24 hr 02/16/25 17:50: WBC 13.2 H, RBC 4.05 L, Hgb 12.4 L, Hct 37.3 L, MCV 92.1, MCH 30.6, MCHC 33.2, RDW Std Deviation 46.7 H, RDW Coeff of Gisella 13.7, Plt Count 217, MPV 9.7, Immature Gran % (Auto) 0.500, Neut % (Auto) 84.2 H, Lymph % (Auto) 6.1 L, [place] % (Auto) 8.9, Eos % (Auto) 0.1, Baso % (Auto) 0.2, Absolute Neuts (auto) 11.1 H, Absolute Lymphs (auto) 0.81 L, Nucleated RBC % 0, Sodium 137, Potassium 3.6, Chloride 101, Carbon Dioxide 23.3, Anion Gap 13, BUN 21 H, Creatinine 1.40 H, Estim Creat Clear Calc 59.18, Est GFR (MDRD) Non-Af 51 L, BUN/Creatinine Ratio 15.1, Glucose 171 H, Lactic Acid 1.5, Calcium 8.5, Total Bilirubin 1.59 H, AST 23, ALT 25, Alkaline Phosphatase 82, Total Protein 6.3, Albumin 3.4, Globulin 2.9, Albumin/Globulin Ratio 1.2, Lipase 19 02/16/25 18:50: Urine Color Red, Urine Clarity Cloudy, Urine pH 6.0, Ur Specific [place] 1.010, Urine Protein 100 H, Urine Glucose (UA) Normal, Urine Ketones Negative, Urine Occult Blood 250 H, Urine Nitrite Negative, Urine Bilirubin Negative, Urine Urobilinogen 4 H, Ur Leukocyte Esterase 25 H, Urine RBC > 100 SEEN, Urine WBC 0-5 SEEN, Ur Squamous Epith Cells 0-5 SEEN, Urine Bacteria 1+, Urine Mucus 0 SEEN 02/17/25 03:05: WBC 13.1 H, RBC 3.92 L, Hgb 11.9 L, Hct 35.9 L, MCV 91.6, MCH 30.4, MCHC 33.1, RDW Std Deviation 45.7 H, RDW Coeff of Gisella 13.6, Plt Count 212, MPV 9.8, Immature Gran % (Auto) 0.400, Neut % (Auto) 79.3 H, Lymph % (Auto) 9.1 L, [place] % (Auto) 10.8 H, Eos % (Auto) 0.2, Baso % (Auto) 0.2, Absolute Neuts (auto) 10.4 H, Absolute Lymphs (auto) 1.20, Nucleated RBC % 0, Sodium 138, Potassium 3.4, Chloride 101, Carbon Dioxide 25.7, Anion Gap 12, BUN 22 H, C reatinine 1.53 H, Estim Creat Clear Calc 54.15, Est GFR (MDRD) Non-Af 46 L, BUN/Creatinine Ratio 14.4, Glucose 137 H, Calcium 8.4, Total Bilirubin 2.00 H, AST 24, ALT 24, Alkaline Phosphatase 73, Total Protein 6.1, Albumin 3.2 L, Globulin 2.8, Albumin/Globulin Ratio 1.1 Micro: Microbiology 02/16/25 16:01 Mucosa - Nasopharyngeal Respiratory Panel (PCR) - Final 02/16/25 15:20 Mucosa - Nose SARS-CoV-2, Influenza & RSV (PCR) - Final Radiography Diagnostic Testing: Radiology Impression Chest/Abdomen/Pelvis CT 02/16/25 14:40 IMPRESSION: 1. Small bilateral pleural effusions with adjacent atelectasis. No evidence of pneumonia. 2. No acute or active inflammatory intra-abdominal pathology. 3. Chronic additional ancillary findings as noted above. Reading Location: [facility] Physical Exam Const alert, oriented x3 and no apparent distress General Appearance: cooperative HEENT normocephalic, head/scalp atraumatic and moist oral mucous membranes Eyes PERRL, EOMs intact bilaterally and conjunctivae normal Neck supple General: trachea midline Chest inspection of chest normal Resp normal respiratory effort Auscultation: Negative for rales, rhonchi or wheezes Cardio S1 normal heart sound and S2 normal heart sound Rhythm: abnormal rhythm GI normal to inspection, nondistended, normoactive bowel sounds Extremity General Extremity: edema; Negative for clubbing Skin no rashes or lesions noted Neuro CN's II-XII intact bilaterally, moves all extremities and no focal motor deficits Psych cooperative and affect normal Charges/Coding Visit Charges Inpatient E&M: 97276 Subs Hosp L2
[2025-02-17] MEDS: Aspirin E.C. 81 MG Tablet PO (11:34)
[2025-02-17] MEDS: APIXABAN 5 MG TABLET PO ×2 (11:37→22:36)
--- NOTE | 2025-02-17 12:28 | PN.HOSP_ITS ---
Reason for Visit Chief Complaint: Shortness of breath Subjective Subjective Saw patient at bedside this morning. Patient was mildly fatigued appearing but otherwise sitting back comfortably in bed, conversing normally, in no acute distress. Denied any chest pain or shortness of breath at rest. Denies any fevers or chills. Denies any palpitations. No other acute concerns at this time. Objective Data Objective Data Vital Signs: Vital Signs Temp Pulse Resp BP Pulse Ox O2 Del Method FiO2 100.4 F H 72 18 145/101 H 97 Room Air 21 02/17/25 11:00 02/17/25 12:00 02/17/25 12:00 02/17/25 12:00 02/17/25 12:00 02/17/25 12:00 02/16/25 22:35 Oxygen Delivery Method Room Air Weight: 133.9 kg Body Mass Index (BMI) 41.3 Intake & Output: Intake and Output for Last 24 Hours 02/15/25 02/16/25 02/17/25 23:59 23:59 23:59 Intake Total 360 / 610 830 / 830 830 / 830 Output Total 350 / 350 3550 / 3900 1355 / 1355 Balance 10 / 260 -2720 / -3070 -525 / -525 Lab / Micro Data 02/17/25 03:05 02/17/25 03:05 Labs: Laboratory Results - last 24 hr 02/16/25 17:50: WBC 13.2 H, RBC 4.05 L, Hgb 12.4 L, Hct 37.3 L, MCV 92.1, MCH 30.6, MCHC 33.2, RDW Std Deviation 46.7 H, RDW Coeff of Gisella 13.7, Plt Count 217, MPV 9.7, Immature Gran % (Auto) 0.500, Neut % (Auto) 84.2 H, Lymph % (Auto) 6.1 L, [place] % (Auto) 8.9, Eos % (Auto) 0.1, Baso % (Auto) 0.2, Absolute Neuts (auto) 11.1 H, Absolute Lymphs (auto) 0.81 L, Nucleated RBC % 0, Sodium 137, Potassium 3.6, Chloride 101, Carbon Dioxide 23.3, Anion Gap 13, BUN 21 H, Creatinine 1.40 H, Estim Creat Clear Calc 59.18, Est GFR (MDRD) Non-Af 51 L, BUN/Creatinine Ratio 15.1, Glucose 171 H, Lactic Acid 1.5, Calcium 8.5, Total Bilirubin 1.59 H, AST 23, ALT 25, Alkaline Phosphatase 82, Total Protein 6.3, Albumin 3.4, Globulin 2.9, Albumin/Globulin Ratio 1.2, Lipase 19 02/16/25 18:50: Urine Color Red, Urine Clarity Cloudy, Urine pH 6.0, Ur Specific [place] 1.010, Urine Protein 100 H, Urine Glucose (UA) Normal, Urine Ketones Negative, Urine Occult Blood 250 H, Urine Nitrite Negative, Urine Bilirubin Negative, Urine Urobilinogen 4 H, Ur Leukocyte Esterase 25 H, Urine RBC > 100 SEEN, Urine WBC 0-5 SEEN, Ur Squamous Epith Cells 0-5 SEEN, Urine Bacteria 1+, Urine Mucus 0 SEEN 02/17/25 03:05: WBC 13.1 H, RBC 3.92 L, Hgb 11.9 L, Hct 35.9 L, MCV 91.6, MCH 30.4, MCHC 33.1, RDW Std Deviation 45.7 H, RDW Coeff of Gisella 13.6, Plt Count 212, MPV 9.8, Immature Gran % (Auto) 0.400, Neut % (Auto) 79.3 H, Lymph % (Auto) 9.1 L, [place] % (Auto) 10.8 H, Eos % (Auto) 0.2, Baso % (Auto) 0.2, Absolute Neuts (auto) 10.4 H, Absolute Lymphs (auto) 1.20, Nucleated RBC % 0, Sodium 138, Potassium 3.4, Chloride 101, Carbon Dioxide 25.7, Anion Gap 12, BUN 22 H, C reatinine 1.53 H, Estim Creat Clear Calc 54.15, Est GFR (MDRD) Non-Af 46 L, BUN/Creatinine Ratio 14.4, Glucose 137 H, Calcium 8.4, Total Bilirubin 2.00 H, AST 24, ALT 24, Alkaline Phosphatase 73, Total Protein 6.1, Albumin 3.2 L, Globulin 2.8, Albumin/Globulin Ratio 1.1 02/17/25 09:55: Rheumatoid Factor 17.1 H, OSEAS-1 Antibody TNP, Sm (Hoover) Antibody TNP, FOOD PREPARER Antibody TNP, Scl-70 Scleroderma Ab TNP, Antichromatin Antibodies TNP, Centromere B Antibody TNP Micro: Microbiology 02/16/25 16:01 Mucosa - Nasopharyngeal Respiratory Panel (PCR) - Final 02/16/25 15:20 Mucosa - Nose SARS-CoV-2, Influenza & RSV (PCR) - Final Radiography Diagnostic Testing: Radiology Impression Chest/Abdomen/Pelvis CT 02/16/25 14:40 IMPRESSION: 1. Small bilateral pleural effusions with adjacent atelectasis. No evidence of pneumonia. 2. No acute or active inflammatory intra-abdominal pathology. 3. Chronic additional ancillary findings as noted above. Reading Location: [id number] Physical Exam Const alert, oriented x3 and no apparent distress Constitutional Narrative: Elderly male, class III obesity, mildly fatigued appearing but otherwise sitting back comfortably in bed, conversing normally, in no acute distress. General Appearance: cooperative and comfortable HEENT normocephalic, head/scalp atraumatic, hearing grossly normal bilaterally, nasal mucous membranes and turbinates normal and moist oral mucous membranes Eyes PERRL, EOMs intact bilaterally and conjunctivae normal Neck full ROM Chest inspection of chest normal Resp normal respiratory effort and no use of accessory muscles Resp Narrative: Breathing comfortably on room air at rest. Diminished breath sounds in bilateral lung bases but otherwise good air movement throughout, no wheezing noted. Cardio regular rate, regular rhythm, no murmurs and peripheral pulses 2+ throughout GI normal to inspection, nondistended, normoactive bowel sounds, soft to palpation, non-tender and non-distended Back/Spine normal ROM Extremity full ROM Extremity Narrative: Trace lower extremity edema noted. Skin no rashes or lesions noted Psych mental status grossly normal Assessment & Plan Assessment/Plan (1) CHF (congestive heart failure): (2) Isorhythmic AV dissociation: PLAN: Plan Patient is an 79-year-old male who presented to [facility] ED on 02/15/2025 with worsening shortness of breath. 1. Acute CHF exacerbation ? Cardiology and road passenger firer following. Presented with worsening shortness of breath and volume overload. CT chest with mild vascular congestion and small bilateral pleural effusions. BNP 3571. Echo completed on 02/17, read pending. Per cardiology, suspect patient has diastolic heart failure but will wait on formal echo read. Continue IV Lasix 40 mg daily for now, monitor daily BMP and urine output. 2. A-V dissociation ? Cardiology following as above. Cardiology noted that patient appears to have isorhythmic A-V dissociation noted on admission. Beta-adebayo discontinued and has had improvement in this arrhythmia. No need for permanent pacemaker implantation at this time. Continue cardiac monitoring. 3. Fever of unknown origin ? Clinical Case Manager following as above. Patient continues to have high-grade fevers as of 02/17. CT chest abdomen pelvis on 02/16 showed no discernible infectious etiology. Cultures remain pending. Autoimmune and vasculitis panel pending as well. Continue empiric Zosyn. 4. ROSSANA ? Creatinine 0.94 on admit, worsened to 1.4 on hospital day 2 and has remained stable at 1.4-1.5. Suspect mild prerenal etiology. Okay to continue IV Lasix as above. Continue to monitor daily BMP and urine output. Chronic medical conditions: ? Class III obesity with MARTIN: BMI 41 on admit. Complicates hospital course and care. Continue home PAP therapy at night. ? Hypothyroidism: TSH mildly elevated at 4.3. Okay to continue home Synthroid. Recommend repeat TSH in 4 to 6 weeks and then follow-up with PCP for titration of Synthroid. ? History of DVT/PE, hypertension, hyperlipidemia: Eliquis initially held on admit given concern patient may need pacemaker placement, resumed on 02/17. Will beta-adebayo discontinued given A-V dissociation as above. Holding home lisinopril and hydrochlorothiazide given ROSSANA as above. Okay to continue home aspirin and statin. ? Peripheral neuropathy: Continue gabapentin. DVT prophylaxis: Not indicated, on Eliquis CODE STATUS: Full code, verified Expected disposition: Home, TBD Total clinical time spent by myself addressing the patient's medical issues, reviewing all the data, and collaborating with patient's care team: 39 minutes. Charges/Coding Visit Charges Inpatient E&M: 96601 Subs Hosp L2
--- NOTE | 2025-02-17 14:58 | CASEMGMT ---
CHAD HENSON Assessment Face to Face with patient for initial transition planning/care coordination assessment. RN SIXTO introduced self and role at [facility], pt voices understanding. Pt is A&Ox4 and is resting comfortably in the chair and is calm. Care providers, pharmacy, and demographics verified. Admitting dx: Symptomatic Heart Block LACE Strata: 3 PCP: Bret Diaz Specialists: Raulito (PM), [facility] (Pt is unsure of the name) Preferred Pharmacy: [facility] Insurance: [facility] A/B, AARP Prescription Benefit: Yes LNOK: Estefania (W), Iliana (Sister). Pt states that his mainly lives in [place] Living Arrangements: Pt lives alone in a 2 story home with 1-2 steps to enter. Pt states that his will be coming back from [place] this weekend and plans to stay at home with the pt x1 month. ADLs/IADLs: Pt reports that he is indep at baseline. However, pt's does not feel this way now. Pt states that he gets very painful when he gets up now. See PT notes. Transportation: Self, neighbor DME: CPAP @ HS with no additional oxygen. Pt may qualify for home oxygen use. A verbal list of local in-network DME companies were provided to the pt at this time. Pt prefers [employer]. Pt also reports that he has a FWW, Cane, shower chair, and HH shower handle. HHC/SNF: Reports HH history x 5 years ago but cannot recall the name of the agency Pt?s goal: TBD Plan: TBD. Per cardiology, permanent pacer placement is not warranted. Echo results are pending. At this time, the pt states that it is too early to tell what he will need or want at the time of DC. CM to follow pt's progression in the hospital and follow up to consolidate DC plans. Pt thanks this web content writer and denies further questions or concerns now. CM to follow. Matty Bartlett RN, CM
--- NOTE | 2025-02-17 15:58 | CHAPLAIN ---
Type of Pastoral Visit _x__ Initial Visit ___ Follow-up Visit ___ On-call Visit ___ General Patient Visit ___ Spiritual Assessment ___ Family Conference ___ Bereavement ___ Rapid Response ___ Code Blue ___ Other (describe below) Pastoral Care Referral From _x__ Patient ___ Family ___ Nurse ___ Physician ___ Research Microbiologist ___ Set Up Worker ___ Other (describe below) Sacrament/Intervention _x__ Active listening ___ Anointing ___ Islam ___ Bereavement ___ Communion _x__ Ijeoma exploration ___ _x__ Life review _x__ Prayer ___ Reconciliation ___ Sacrament of Sick _x__ Supportive presence ___ Wedding ___ Other (describe below) Pastoral Comments patient has been talkative and open to sharing his experiences, thoughts, feelings, and ijeoma; pt is expecting his to return home from [place] to help care for him; pt has fully retired as of Dec.30 and is welcoming of his new phase of life; pt expects spiritual care and prayer and is holding on to his ijeoma in times like this
[2025-02-18] VITALS (8 sets, daily range): BP systolic 127–153; BP diastolic 62–85; PULSE 66–84; RESP 16–18; TEMP 36.7–37.6; O2SAT 93–96; BMI 41.1
[2025-02-18] MEDS: Piperacil/Tazobactam 3.375 GM in 0.9% Normal Saline (50mL MB+) 50 ML IV ×3 (05:02→22:41)
[2025-02-18 06:08] LABS: Hematocrit 36.9 % (40-54); Hemoglobin 12.2 g/dL (13.0-16.5); Immature Granulocytes Count 0.050 X10^3/uL (0.0-0.0); Mean Corp Hgb Conc 33.1 g/dL (32-36); Mean Corpuscular Volume 93.4 fL (80-94); Mean Platelet Vol. 10.1 fl (6.2-12.0); NRBC Flagged by Analyzer 0 % (0-5); Platelet Count 219 K/mm3 (150-450); RBC Distribution Width CV 13.3 % (11.6-14.6); RBC Distribution Width SD 45.5 fl (35.1-43.9); Red Blood Count 3.95 M/mm3 (4.6-6.2); White Blood Count 12.4 K/mm3 (4.4-11.0)
[2025-02-18 06:27] LABS: AST(SGOT) 40 U/L (<=37); Alanine Aminotransfer ALT/SGPT 25 U/L (<=46); Albumin, Serum 2.9 g/dL (3.4-4.8); Alkaline Phosphatase 76 U/L (40-129); Anion Gap 11 (5-15); BUN 26 mg/dL (4-19); BUN/Creat Ratio 17.4 RATIO (10-20); Calcium,Total 8.4 mg/dL (7.6-11.0); Carbon Dioxide 25.9 mmol/L (21.0-32.0); Chloride 101 mmol/L (98-108); Estimated Creatinine Clearance 55.07 ml/min (50-250); Globulin 3.4 g/dL (2.2-4.2); Glucose 103 mg/dL (70-99); Magnesium 1.9 mg/dL (1.5-2.2); Potassium 3.4 mmol/L (3.3-5.1)
--- NOTE | 2025-02-18 06:49 | PN.CARD_ITS ---
Subjective Subjective Patient seen and evaluated. Appears to be stable. Did have some wide-complex tachycardia noted overnight asymptomatic. 25 beats. Objective Data Vital Signs: Vital Signs Temp Pulse Resp BP Pulse Ox O2 Del Method FiO2 98.6 F 71 16 132/79 H 93 Room Air 21 02/18/25 05:15 02/18/25 05:15 02/18/25 05:15 02/18/25 05:15 02/18/25 05:15 02/18/25 05:15 02/18/25 01:08 Oxygen Delivery Method Room Air Weight: 293 lb 10.491 oz Body Mass Index (BMI) 41.1 Intake & Output: Intake and Output for Last 24 Hours 02/16/25 02/17/25 02/18/25 23:59 23:59 23:59 Intake Total 830 / 830 1220 / 1220 150 / 150 Output Total 3550 / 3900 3060 / 3060 400 / 400 Balance -2720 / -3070 -1840 / -1840 -250 / -250 Lab / Micro Data 02/18/25 05:28 02/18/25 05:28 Labs: Laboratory Results - last 24 hr 02/17/25 09:55: Rheumatoid Factor 17.1 H, OSEAS-1 Antibody TNP, Sm (Hoover) Antibody TNP, FILTER CHANGING TECHNICIAN Antibody TNP, Scl-70 Scleroderma Ab TNP, Antichromatin Antibodies TNP, Centromere B Antibody TNP 02/18/25 05:28: WBC 12.4 H, RBC 3.95 L, Hgb 12.2 L, Hct 36.9 L, MCV 93.4, MCH 30.9, MCHC 33.1, RDW Std Deviation 45.5 H, RDW Coeff of Gisella 13.3, Plt Count 219, MPV 10.1, Immature Gran % (Auto) 0.400, Neut % (Auto) 74.1 H, Lymph % (Auto) 14.2 L, [place] % (Auto) 9.5, Eos % (Auto) 1.5, Baso % (Auto) 0.3, Absolute Neuts (auto) 9.2 H, Absolute Lymphs (auto) 1.75, Nucleated RBC % 0, Sodium 138, Potassium 3.4, Chloride 101, Carbon Dioxide 25.9, Anion Gap 11, BUN 26 H, C reatinine 1.49 H, Estim Creat Clear Calc 55.07, Est GFR (MDRD) Non-Af 47 L, BUN/Creatinine Ratio 17.4, Glucose 103 H, Calcium 8.4, Magnesium 1.9, Total Bilirubin 1.61 H, AST 40 H, ALT 25, Alkaline Phosphatase 76, Total Protein 6.2, Albumin 2.9 L, Globulin 3.4, Albumin/Globulin Ratio 0.9 Cardiology Labs/Tests 02/18/25 05:28: WBC 12.4 H, RBC 3.95 L, Hgb 12.2 L, Hct 36.9 L, MCV 93.4, MCH 30.9, MCHC 33.1, Plt Count 219, MPV 10.1, Immature Gran % (Auto) 0.400, Neut % (Auto) 74.1 H, Lymph % (Auto) 14.2 L, [place] % (Auto) 9.5, Eos % (Auto) 1.5, Baso % (Auto) 0.3, Absolute Neuts (auto) 9.2 H, Nucleated RBC % 0, Sodium 138, Potassium 3.4, Chloride 101, Carbon Dioxide 25.9, Anion Gap 11, BUN 26 H, C reatinine 1.49 H, Est GFR (MDRD) Non-Af 47 L, BUN/Creatinine Ratio 17.4, Glucose 103 H, Calcium 8.4, Magnesium 1.9, Total Bilirubin 1.61 H Rhythm: EKG: ECHO: Stress Test: Cardiac Cath: PCI: CT Surgery: Holter monitor: EPS: PPM: CXR: Chest CT Scan: Radiography Diagnostic Testing: Radiology Impression Echocardiogram 02/15/25 20:36 Interpretation Summary Normal LV size. Moderate concentric left ventricular hypertrophy. The left ventricular ejection fraction is 65 %. Stage 2 diastolic dysfunction. Contrast injection was performed. Ordering Physician: Helen Feng Referring Physician: AGNES DEL ROSARIO Performed By: Sabina Gill RCS Venous Doppler Study 02/15/25 22:53 Interpretation Summary Deep veins of the lower extremities are bilaterally patent and compressible segmentally. There is no evidence of deep vein thrombosis on either side. Valvular competence appears intact within the proximal deep venous systems bilaterally. The great saphenous veins appear bilaterally patent and compressible segmentally. Ordering Physician: Randy Wright Referring Physician: Salvador Del Rosario Performed By: Donaldo Moya RVT Physical Exam Const alert, oriented x3 and no apparent distress General Appearance: cooperative and comfortable HEENT normocephalic, head/scalp atraumatic, hearing grossly normal bilaterally, nasal mucous membranes and turbinates normal and moist oral mucous membranes Eyes PERRL, EOMs intact bilaterally and conjunctivae normal Neck full ROM Chest inspection of chest normal Resp normal respiratory effort and no use of accessory muscles Resp Narrative: Breathing comfortably on room air at rest. Diminished breath sounds in bilateral lung bases but otherwise good air movement throughout, Cardio regular rate, regular rhythm, no murmurs and peripheral pulses 2+ throughout GI normal to inspection, nondistended, normoactive bowel sounds, soft to palpation, non-tender and non-distended Back/Spine normal ROM Extremity full ROM Extremity Narrative: Trace lower extremity edema noted. General Extremity: edema bilateral (Minimally pitting edema noted) Skin no rashes or lesions noted Psych mental status grossly normal Assessment & Plan Assessment/Plan (1) Isorhythmic AV dissociation: PLAN: Patient appears to be having isorhythmic A-V dissociation. Review of previous EKGs from earlier this year demonstrates sinus rhythm and then also rhythms with junctional component. Mobitz type I cannot be completely excluded. My recommendation at this time would be to discontinue the beta-adebayo and observe his rhythm. Obtain an echocardiogram to assess ventricular function At this time I do not think there is any indication for permanent pacemaker implantation. (2) CHF (congestive heart failure): PLAN: Patient appears to have evidence of congestive heart failure likely diastolic cardiac mediated. I would also recommend an echocardiogram to reassess the left ventricular function. Depending on those results further recommendations will be made. (3) NSVT (nonsustained ventricular tachycardia): PLAN: Patient had some wide-complex tachycardia asymptomatic. He does have preserved low ventricular ejection fraction. His potassium is noted to be low at 3.4 and magnesium is also low. Will replace the above. Would recommend obtaining a pharmacologic myocardial perfusion stress test to exclude ischemia. If the above are noted to be normal no further workup will be pursued at this time. Thank you for allowing me to participate in the care of your patient. Please don't hesitate to call if any issues arise.
--- NOTE | 2025-02-18 06:51 | EKG12_ITS ---
Test Reason : STRESS TEST Blood Pressure : */* mmHG Vent. Rate : 61 BPM Atrial Rate : 61 BPM P-R Int : 172 ms QRS Dur : 86 ms QT Int : 478 ms P-R-T Axes : 21 12 6 degrees QTcB Int : 481 ms Sinus rhythm with Premature atrial complexes Nonspecific ST abnormality Prolonged QT Abnormal ECG Confirmed by John Sheehan ([id number]), manuscript editor SEAN DALTON ([id number]) on 02/18/2025 11:19:18 AM Referred By: Confirmed By: John Sheehan
[2025-02-18] MEDS: Aspirin E.C. 81 MG Tablet PO (06:55)
[2025-02-18 09:54] LABS: Pro- Brain NATRIURETIC PEPTIDE 1472 pg/mL (<=1800)
--- NOTE | 2025-02-18 10:03 | STRESSREP ---
Stress Test Report Pharmacologic myocardial perfusion stress test. 79-year-old man with a history of cardiac dysrhythmia. Resting EKG demonstrates normal sinus rhythm with a rate of 70 bpm. Resting blood pressure is 122/80 mmHg. 0.4 mg of regadenoson was infused per usual protocol followed by rapid intravenous saline flush injection. Continuous EKG monitoring was performed. The maximum heart rate was 105 bpm which was 75% of max impacted heart rate the maximum workload was 1 metabolic equivalent. At rest there were no ST or T wave changes noted to suggest ischemia and at peak infusion nonspecific ST changes were noted which did not meet the criteria for ischemia. No clinical angina is noted. The final blood pressure was 132/70 mmHg. Myocardial perfusion protocol. 15 mCi of technetium 99m sestamibi was injected at rest. 0.4 mg of regadenoson was infused per usual protocol. At peak infusion 45 point mCi of technetium 99m sestamibi was injected stress images were obtained stress and rest images were reconstructed and compared in the short axis vertical long and horizontal long axis. Gated images were also obtained. Perfusion SPECT analysis: Review of the stress images demonstrate normal uptake of tracer noted in all areas of the myocardium. The resting images similar demonstrated normal uptake of tracer noted in all areas of the myocardium. No areas of reversibility are noted to suggest ischemia and no previous infarct is noted. Gated SPECT analysis: The gated ejection fraction is 70%. Conclusion: Normal pharmacologic myocardial perfusion stress test. Preserved ejection fraction.
[2025-02-18] MEDS: Potassium Chloride Oral Tablet 20 MEQ 40 MEQ PO ×2 (10:09→16:00)
[2025-02-18] MEDS: APIXABAN 5 MG TABLET PO ×2 (10:10→22:41)
--- NOTE | 2025-02-18 10:38 | CASEMGMT ---
Social Work SW spoke with the patient regarding discharging to a skilled rehab for more therapy. Patient reported he wants to DC home. He reported his is coming into town Monday from [place] and she is a RN. He reported he will consider HH at [place]. He reported he has a cane, RW and SC at home. MIN Zee
--- NOTE | 2025-02-18 11:10 | PN.HOSP_ITS ---
Reason for Visit Chief Complaint: Shortness of breath Subjective Subjective Saw patient at bedside this morning. Patient was mildly fatigued appearing but otherwise sitting back comfortably in bed, conversing normally, in no acute distress. Patient reports feeling mildly improved from yesterday. He does continue to have pain and discomfort in his feet with ambulation, similar to previous days. Notably patient had an episode of V. tach overnight and per cardiology had a stress test on this morning that was negative. He has had no further runs of V. tach since then. No other acute concerns this morning. Objective Data Objective Data Vital Signs: Vital Signs Temp Pulse Resp BP Pulse Ox O2 Del Method FiO2 98.6 F 66 16 130/85 H 94 Room Air 02/18/25 10:02/18/25 10:02/18/25 10:02/18/25 10:02/18/25 10:02/18/25 10:02/18/25 01:08 Oxygen Delivery Method Room Air Weight: 133.2 kg Body Mass Index (BMI) 41.1 Intake & Output: Intake and Output for Last 24 Hours 02/16/25 02/17/25 02/18/25 23:59 23:59 23:59 Intake Total 830 / 830 1220 / 1220 183.96 / 183.96 Output Total 3550 / 3900 3060 / 3060 400 / 400 Balance -2720 / -3070 -1840 / -1840 -216.04 / -216.04 Lab / Micro Data 02/18/25 05:28 02/18/25 05:28 Labs: Laboratory Results - last 24 hr 02/18/25 05:28: WBC 12.4 H, RBC 3.95 L, Hgb 12.2 L, Hct 36.9 L, MCV 93.4, MCH 30.9, MCHC 33.1, RDW Std Deviation 45.5 H, RDW Coeff of Gisella 13.3, Plt Count 219, MPV 10.1, Immature Gran % (Auto) 0.400, Neut % (Auto) 74.1 H, Lymph % (Auto) 14.2 L, [place] % (Auto) 9.5, Eos % (Auto) 1.5, Baso % (Auto) 0.3, Absolute Neuts (auto) 9.2 H, Absolute Lymphs (auto) 1.75, Nucleated RBC % 0, Sodium 138, Potassium 3.4, Chloride 101, Carbon Dioxide 25.9, Anion Gap 11, BUN 26 H, C reatinine 1.49 H, Estim Creat Clear Calc 55.07, Est GFR (MDRD) Non-Af 47 L, BUN/Creatinine Ratio 17.4, Glucose 103 H, Calcium 8.4, Magnesium 1.9, Total Bilirubin 1.61 H, AST 40 H, ALT 25, Alkaline Phosphatase 76, NT pro BNP II 1472, Total Protein 6.2, Albumin 2.9 L, Globulin 3.4, Albumin/Globulin Ratio 0.9 Micro: Microbiology 02/16/25 18:50 Urine, Clean Catch Urine Culture - Preliminary Culture exhibits no growth. 02/16/25 16:01 Mucosa - Nasopharyngeal Respiratory Panel (PCR) - Final 02/16/25 15:20 Mucosa - Nose SARS-CoV-2, Influenza & RSV (PCR) - Final Radiography Diagnostic Testing: Radiology Impression Echocardiogram 02/15/25 20:36 Interpretation Summary Normal LV size. Moderate concentric left ventricular hypertrophy. The left ventricular ejection fraction is 65 %. Stage 2 diastolic dysfunction. Contrast injection was performed. Ordering Physician: Helen Feng Referring Physician: AGNES DEL ROSARIO Performed By: Sabina Gill RCS Venous Doppler Study 02/15/25 22:53 Interpretation Summary Deep veins of the lower extremities are bilaterally patent and compressible segmentally. There is no evidence of deep vein thrombosis on either side. Valvular competence appears intact within the proximal deep venous systems bilaterally. The great saphenous veins appear bilaterally patent and compressible segmentally. Ordering Physician: Randy Wright Referring Physician: Salvador Del Rosario Performed By: Donaldo Moya, LIZZ Physical Exam Const alert, oriented x3 and no apparent distress Constitutional Narrative: Elderly male, class III obesity, mildly fatigued appearing but otherwise sitting back comfortably in bed, conversing normally, in no acute distress. Stable. General Appearance: cooperative and comfortable HEENT normocephalic, head/scalp atraumatic, hearing grossly normal bilaterally, nasal mucous membranes and turbinates normal and moist oral mucous membranes Eyes PERRL, EOMs intact bilaterally and conjunctivae normal Neck full ROM Chest inspection of chest normal Resp normal respiratory effort and no use of accessory muscles Resp Narrative: Breathing comfortably on room air at rest. Diminished breath sounds in bilateral lung bases but otherwise good air movement throughout, no wheezing noted. Stable. Cardio regular rate, regular rhythm, no murmurs and peripheral pulses 2+ throughout GI normal to inspection, nondistended, normoactive bowel sounds, soft to palpation, non-tender and non-distended Back/Spine normal ROM Extremity full ROM Extremity Narrative: +3-4 nonpitting lower extremity edema noted bilaterally. Stable. Skin no rashes or lesions noted Psych mental status grossly normal Assessment & Plan Assessment/Plan (1) CHF (congestive heart failure): (2) Isorhythmic AV dissociation: PLAN: Plan Patient is an 79-year-old male who presented to [facility] ED on 02/15/2025 with worsening shortness of breath. 1. Acute HFpEF exacerbation with acute hypoxia ? Cardiology following. [employer] followed. Presented with worsening shortness of breath and volume overload. CT chest with mild vascular congestion and small bilateral pleural effusions. BNP 3571. Echo on 02/17 showed EF 65%, moderate concentric LV hypertrophy, stage II diastolic dysfunction, no other concerning findings. Patient weaned off supplemental oxygen at rest on 02/17 and volume overload appears improved. Repeat BNP 1400 on 02/18, much improved. Patient does continue to have significant lower extremity swelling but per patient this is chronic and is about back to his baseline. Compression stockings ordered. Holding on any further Lasix for now, continue to monitor. 2. A-V dissociation ? Cardiology following as above. Cardiology noted that patient appears to have isorhythmic A-V dissociation noted on admission. Beta-adebayo discontinued and has had improvement in this arrhythmia. No need for permanent pacemaker implantation at this time. Continue cardiac monitoring. 3. Fever of unknown origin ? [employer] following as above. Patient continues to have high-grade fevers as of 02/17. CT chest abdomen pelvis on 02/16 showed no discernible infectious etiology. Cultures remain pending. Autoimmune and vasculitis panel pending as well. Continue empiric Zosyn. 4. ROSSANA ? Creatinine 0.94 on admit, worsened to 1.4 on hospital day 2 and has remained stable at 1.4-1.5. Suspect secondary to HFpEF exacerbation as above with now some degree of ATN. Patient has had good urine output for the past several days. Continue to monitor daily BMP. 5. Nonsustained V. tach ? Cardiology following as above. Patient had an episode of nonsustained V. tach of 25 beats overnight on 02/17. Asymptomatic. Stress test on 02/18 with no concerning findings. Patient notably had hypokalemia and mild hypomagnesemia as below and these were replaced. Per cardiology, no need for further testing at this time. Continue cardiac monitoring. 6. Mild hypokalemia and hypomagnesemia ? Potassium 3.4, magnesium 1.9 on 02/18. Had episode of nonsustained V. tach as above so both of these were repleted. 7. Acute on chronic debility ? PT/OT/case management following. Patient lives at home with his , apparently uses a cane for ambulation but has difficulty with ambulation due to his chronic lower extremity swelling. Patient with poor therapy scores to this point but has been adamant that he would like to return home on discharge. Will discuss further with patient and on discharge recommendations today as patient should be medically stable for discharge tomorrow. Chronic medical conditions: ? Class III obesity with MARTIN: BMI 41 on admit. Complicates hospital course and care. Continue home PAP therapy at night. ? Hypothyroidism: TSH mildly elevated at 4.3. Okay to continue home Synthroid. Recommend repeat TSH in 4 to 6 weeks and then follow-up with PCP for titration of Synthroid. ? History of DVT/PE, hypertension, hyperlipidemia: Eliquis initially held on admit given concern patient may need pacemaker placement, resumed on 02/17. Home beta-adebayo discontinued given A-V dissociation as above. Holding home lisinopril and hydrochlorothiazide given ROSSANA as above. Okay to continue home aspirin and statin. ? Peripheral neuropathy: Continue home gabapentin. DVT prophylaxis: Not indicated, on Eliquis CODE STATUS: Full code, verified Expected disposition: Home with home health care versus SNF, 1 to 2 days Total clinical time spent by myself addressing the patient's medical issues, reviewing all the data, and collaborating with patient's care team: 42 minutes. Charges/Coding Visit Charges Inpatient E&M: 73050 Subs Hosp L2
[2025-02-18] MEDS: Magnesium Sulfate 2 GM in Dextrose 5%-Water (100mL Bag) 100 ML IV (11:58)
--- NOTE | 2025-02-18 12:10 | CASEMGMT ---
According to MCR and [employer] Pt is able to go to any tertiary facilities.
[2025-02-18 14:09] LABS: ANTINUCLEAR ANTIBODIES DIRECT Negative (Negative)
[2025-02-18 16:50] LABS: Uric Acid 6.5 mg/dL (3.5-7.2)
[2025-02-18 17:15] LABS: Mucous, Urine 0 SEEN /hpf (<or=2+)
[2025-02-18 17:51] LABS: Color, Urine Amber (Yellow); Glucose, Dipstick Normal (Normal); Ketone-Dipstick Negative (Negative); Leukocyte Esterase-Dipstick 25 /ul (Negative); Nitrite-Dipstick Negative (Negative); Occult Blood-Urine 250 /ul (Negative); Protein-Dipstick 100 mg/dl (Negative); Specific Gravity, Urine 1.015 (1.002-1.030)
[2025-02-18 17:53] LABS: Urine Bilirubin Dipstick 1 mg/dL (Negative)
[2025-02-18 20:12] LABS: Red Blood Cells-Urine > 100 SEEN /hpf (0-5)
[2025-02-18 20:15] LABS: Squamous Epithelial Cells - UA 0-5 SEEN /hpf (0-5)
[2025-02-19] VITALS: TEMP 36.8
[2025-02-19 03:24] VITALS: BMI 41.1
[2025-02-19 03:50] VITALS: BP 144/82; PULSE 70; RESP 16; TEMP 36.7; O2SAT 95
[2025-02-19] MEDS: Piperacil/Tazobactam 3.375 GM in 0.9% Normal Saline (50mL MB+) 50 ML IV ×3 (05:39→20:30)
[2025-02-19 07:16] LABS: Hematocrit 36.8 % (40-54); Hemoglobin 12.2 g/dL (13.0-16.5); Immature Granulocytes Count 0.050 X10^3/uL (0.0-0.0); Mean Corp Hgb Conc 33.2 g/dL (32-36); Mean Corpuscular Volume 90.6 fL (80-94); Mean Platelet Vol. 9.4 fl (6.2-12.0); NRBC Flagged by Analyzer 0 % (0-5); Platelet Count 264 K/mm3 (150-450); RBC Distribution Width CV 13.3 % (11.6-14.6); RBC Distribution Width SD 44.1 fl (35.1-43.9); Red Blood Count 4.06 M/mm3 (4.6-6.2); White Blood Count 10.3 K/mm3 (4.4-11.0)
[2025-02-19 07:41] LABS: AST(SGOT) 43 U/L (<=37); Alanine Aminotransfer ALT/SGPT 31 U/L (<=46); Albumin, Serum 3.0 g/dL (3.4-4.8); Alkaline Phosphatase 79 U/L (40-129); Anion Gap 10 (5-15); BUN 24 mg/dL (4-19); BUN/Creat Ratio 19.1 RATIO (10-20); Calcium,Total 8.2 mg/dL (7.6-11.0); Carbon Dioxide 24.2 mmol/L (21.0-32.0); Chloride 103 mmol/L (98-108); Estimated Creatinine Clearance 65.61 ml/min (50-250); Globulin 3.2 g/dL (2.2-4.2); Glucose 121 mg/dL (70-99); Potassium 4.0 mmol/L (3.3-5.1)
[2025-02-19 08:15] VITALS: BP 129/58; PULSE 94; RESP 20; TEMP 36.8; O2SAT 93
[2025-02-19] MEDS: Aspirin E.C. 81 MG Tablet PO (08:17)
[2025-02-19] MEDS: Potassium Chloride Oral Tablet 20 MEQ 40 MEQ PO ×2 (08:17→17:09)
[2025-02-19] MEDS: APIXABAN 5 MG TABLET PO ×2 (08:17→20:31)
--- NOTE | 2025-02-19 11:24 | CASEMGMT ---
Social Work SW provided the patient with a list of?SNF providers including quality and resource use data and consistent with the patient's preferred geographic region, medical needs, and insurance network was created in [employer] Guide.?SW will follow up with the patient regarding choices. MIN Kapadia
--- NOTE | 2025-02-19 11:30 | PN.HOSP_ITS ---
Reason for Visit Chief Complaint: Shortness of breath Subjective Subjective Saw patient at bedside this morning. Patient appeared similar today to previous days, was mildly fatigued appearing but otherwise sitting back comfortably in bed and in no acute distress. He continues to report significant foot pain with putting any weight on his feet. Notes that he has had foot and lower extremity swelling for the past 4 to 5 years but has not had this level pain with walking on his feet to this point. His Morgan catheter was pulled this morning and he has urinated without issue. Notes that he does feel a bit weaker than his baseline but it is primarily his feet pain and swelling that is leading to difficulty with ambulating. Objective Data Objective Data Vital Signs: Vital Signs Temp Pulse Resp BP Pulse Ox O2 Del Method FiO2 98.3 F 94 20 H 129/58 H 93 Room Air 21 02/19/25 08:15 02/19/25 08:15 02/19/25 08:15 02/19/25 08:15 02/19/25 08:15 02/19/25 08:15 02/18/25 23:40 Oxygen Delivery Method Room Air Weight: 133.1 kg Body Mass Index (BMI) 41.1 Intake & Output: Intake and Output for Last 24 Hours 02/17/25 02/18/25 02/19/25 23:59 23:59 23:59 Intake Total 1220 / 1220 714.00 / 714.00 50 / 50 Output Total 3060 / 3060 800 / 1200 750 / 750 Balance -1840 / -1840 -86.00 / -486.00 -700 / -700 Lab / Micro Data 02/19/25 06:50 02/19/25 06:50 Labs: Laboratory Results - last 24 hr 02/17/25 09:55: DAVID Screen Negative, SS-A/Ro IgG Antibody TNP, SS-B/La IgG Antibody TNP, Double Strand DNA Ab TNP 02/18/25 05:28: Uric Acid 6.5 02/18/25 17:05: Urine Color July, Urine Clarity Turbid, Urine pH 6.5, Ur Specific [place] 1.015, Urine Protein 100 H, Urine Glucose (UA) Normal, Urine Ketones Negative, Urine Occult Blood 250 H, Urine Nitrite Negative, Urine Bilirubin 1 H, Urine Urobilinogen 12 H, Ur Leukocyte Esterase 25 H, Urine RBC > 100 SEEN, Urine WBC 10-25 SEEN, Ur Squamous Epith Cells 0-5 SEEN, Urine Bacteria 0 SEEN, Urine Mucus 0 SEEN 02/19/25 06:50: WBC 10.3, RBC 4.06 L, Hgb 12.2 L, Hct 36.8 L, MCV 90.6, MCH 30.0, MCHC 33.2, RDW Std Deviation 44.1 H, RDW Coeff of Gisella 13.3, Plt Count 264, MPV 9.4, Immature Gran % (Auto) 0.500, Neut % (Auto) 76.6 H, Lymph % (Auto) 12.4 L, [place] % (Auto) 8.1, Eos % (Auto) 1.8, Baso % (Auto) 0.6, Absolute Neuts (auto) 7.9 H, Absolute Lymphs (auto) 1.28, Nucleated RBC % 0, Sodium 138, Potassium 4.0, Chloride 103, Carbon Dioxide 24.2, Anion Gap 10, BUN 24 H, Creatinine 1.25 H, Estim Creat Clear Calc 65.61, Est GFR (MDRD) Non-Af 58 L, BUN/Creatinine Ratio 19.1, Glucose 121 H, Calcium 8.2, Total Bilirubin 0.95, AST 43 H, ALT 31, Alkaline Phosphatase 79, Total Protein 6.2, Albumin 3.0 L, Globulin 3.2, Albumin/Globulin Ratio 0.9 Micro: Microbiology 02/16/25 17:50 Blood Culture (Wb) - Pic Blood Culture - Preliminary No growth in 48 hours. 02/16/25 17:30 Blood Culture (Wb) - Pic Blood Culture - Preliminary No growth in 48 hours. 02/16/25 18:50 Urine, Clean Catch Urine Culture - Final Culture exhibits no growth. 02/16/25 16:01 Mucosa - Nasopharyngeal Respiratory Panel (PCR) - Final 02/16/25 15:20 Mucosa - Nose SARS-CoV-2, Influenza & RSV (PCR) - Final Physical Exam Const alert, oriented x3 and no apparent distress Constitutional Narrative: Elderly male, class III obesity, mildly fatigued appearing but otherwise sitting back comfortably in bed, conversing normally, in no acute distress. Stable. General Appearance: cooperative and comfortable HEENT normocephalic, head/scalp atraumatic, hearing grossly normal bilaterally, nasal mucous membranes and turbinates normal and moist oral mucous membranes Eyes PERRL, EOMs intact bilaterally and conjunctivae normal Neck full ROM Chest inspection of chest normal Resp normal respiratory effort and no use of accessory muscles Resp Narrative: Breathing comfortably on room air at rest. Diminished breath sounds in bilateral lung bases but otherwise good air movement throughout, no wheezing noted. Stable. Cardio regular rate, regular rhythm, no murmurs and peripheral pulses 2+ throughout GI normal to inspection, nondistended, normoactive bowel sounds, soft to palpation, non-tender and non-distended Back/Spine normal ROM Extremity full ROM Extremity Narrative: +3-4 pitting edema noted in feet bilaterally. Otherwise minimal edema noted in ankles and lower legs. No erythema noted. Minimal tenderness to palpation of the feet bilaterally. Skin no rashes or lesions noted Psych mental status grossly normal Assessment & Plan Assessment/Plan (1) CHF (congestive heart failure): (2) Isorhythmic AV dissociation: PLAN: Plan Patient is an 79-year-old male who presented to [facility] ED on 02/15/2025 with worsening shortness of breath. 1. Acute HFpEF exacerbation with acute hypoxia, improved ? Cardiology and program clerk followed. Presented with worsening shortness of breath and volume overload. CT chest with mild vascular congestion and small bilateral pleural effusions. BNP 3571. Echo on 02/17 showed EF 65%, moderate concentric LV hypertrophy, stage II diastolic dysfunction, no other concerning findings. Patient weaned off supplemental oxygen at rest on 02/17 and volume overload appears improved. Repeat BNP 1400 on 02/18, much improved. Patient has significant bilateral foot swelling suspected secondary to lymphedema as below but legs otherwise are minimally swollen and he appears about back to his baseline. Continue compression stockings. Holding on any further Lasix at this time. 2. A-V dissociation ? Cardiology followed as above. Cardiology noted that patient appears to have isorhythmic A-V dissociation noted on admission. Beta-adebayo discontinued and has had improvement in this arrhythmia. No need for permanent pacemaker implantation at this time. Continue cardiac monitoring. 3. Fever of unknown origin, improved ? [employer] followed as above. Patient with fevers up to 102-103F on 02/16 and 02/[address] chest abdomen pelvis on 02/16 showed no discernible infectious etiology. Cultures negative. Autoimmune and vasculitis panel negative as well. Fevers resolved by 02/18. Will continue IV Zosyn while inpatient and plan to complete 7-day course of antibiotics total. 4. ROSSANA, improving ? Creatinine 0.94 on admit, worsened to 1.4 on hospital day 2. Remained stable at 1.4-1.5 for several days, now with some improvement with most recent creatinine 1.27 on 02/19. Suspect secondary to HFpEF exacerbation as above with some degree of ATN. Patient has had good urine output throughout this hospitalization. Continue to monitor daily BMP. 5. Nonsustained V. tach ? Cardiology followed as above. Patient had an episode of nonsustained V. tach of 25 beats overnight on 02/17. Asymptomatic. Stress test on 02/18 with no concerning findings. Patient notably had hypokalemia and mild hypomagnesemia as below and these were replaced. Per cardiology, no need for further testing at this time. Continue cardiac monitoring. 6. Mild hypokalemia and hypomagnesemia ? Potassium 3.4, magnesium 1.9 on 02/18. Had episode of nonsustained V. tach as above so both of these were repleted. 7. Acute on chronic debility with bilateral foot swelling suspected due to lymphedema ? PT/OT/case management following. Patient lives at home with his , apparently uses a cane for ambulation but has difficulty with ambulation due to his chronic lower extremity swelling. Patient with poor therapy scores to this point and reports worse bilateral foot pain than his baseline. Notably lower extremity duplex ultrasound early in admission was negative. Bilateral foot x- ray on 02/19 showed diffuse soft tissue swelling bilaterally but no other concerning findings. Findings appear most consistent with lymphedema. Will continue compression stockings while inpatient and recommend close outpatient follow-up with PCP to establish with a lymphedema clinic. Given his degree of debility, patient is agreeable now to SNF placement. Case management assisting with setting up SNF placement for the patient. Hopeful that patient will be medically ready for discharge tomorrow. 8. History of Ampulla of Vater mass, choledocholithiasis and cystic pancreatic tail lesions ? Follows with Dr. Sher in the office. See H&P note from 12/26 for further details. Most recently, patient had ERCP done in September with an apparent mass noted at the major papilla that was resected; also showed recurrent choledocholithiasis with removal and biliary stent placement x 1. Patient was hospitalized at the end of September for fever of unknown origin possibly secondary to cholangitis improved with a course of antibiotics. CT abdomen pelvis on this admission with unremarkable gallbladder, no biliary ductal dilation, pneumobilia related to prior sphincterotomy and previous biliary ductal stenting, no other concerning findings. No inpatient needs, continue close outpatient follow-up with GI. Chronic medical conditions: ? Class III obesity with MARTIN: BMI 41 on admit. Complicates hospital course and care. Continue home PAP therapy at night. ? Hypothyroidism: TSH mildly elevated at 4.3. Okay to continue home Synthroid. Recommend repeat TSH in 4 to 6 weeks and then follow-up with PCP for titration of Synthroid. ? History of DVT/PE, hypertension, hyperlipidemia: Eliquis initially held on admit given concern patient may need pacemaker placement, resumed on 02/17. Home beta-adebayo discontinued given A-V dissociation as above. Holding home lisinopril and hydrochlorothiazide given ROSSANA as above. Okay to continue home aspirin and statin. ? Peripheral neuropathy: Continue home gabapentin. DVT prophylaxis: Not indicated, on Eliquis CODE STATUS: Full code, verified Expected disposition: Home with home health care versus SNF, 1 to 2 days Total clinical time spent by myself addressing the patient's medical issues, reviewing all the data, and collaborating with patient's care team: 42 minutes. Charges/Coding Visit Charges Inpatient E&M: 59331 Subs Hosp L2
--- NOTE | 2025-02-19 14:45 | RAD_ITS ---
PROCEDURE: FOOT 2 VIEWS 02/19/2025 REASON FOR EXAM: WORSENING FEET PAIN W/ SWELLING TECHNIQUE: Procedure Code: RADFO2 Modality: DX Procedure: FOOT 2 VIEWS Laterality: Left foot COMPARISON: None FINDINGS: Bones: No visible fracture. No suspicious bone lesion. Joints: Normal alignment. Soft tissues: Diffuse soft tissue swelling. Other: RAD/Foot 2 Views IMPRESSION: Diffuse soft tissue swelling. Reading Location: [place] [id number]
--- NOTE | 2025-02-19 14:45 | RAD_ITS ---
PROCEDURE: FOOT 2 VIEWS 02/19/2025 REASON FOR EXAM: WORSENING FEET PAIN W/ SWELLING UNCLEAR CAUSE TECHNIQUE: Procedure Code: RADFO2 Modality: DX Procedure: FOOT 2 VIEWS Laterality: Left foot COMPARISON: None FINDINGS: Bones: No visible fracture. No suspicious bone lesion. Joints: Degenerative changes at the 1st metatarsophalangeal joint. Soft tissues: Soft tissue swelling. Other: RAD/Foot 2 Views IMPRESSION: Diffuse soft tissue swelling. Reading Location: [place] [id number]
--- NOTE | 2025-02-19 14:48 | CASEMGMT ---
Social Work SW spoke with the patient regarding SNF's. The patients 1st choice is [facility], 2nd choice is [facility] and [facility] Patient is not medically ready to DC today. SW sent a referral to TCU and will follow up tomorrow once patient is medically ready for DC. MIN Zee
[2025-02-19 17:07] VITALS: BP 146/66; PULSE 79; RESP 18; TEMP 36.5; O2SAT 95
[2025-02-19 17:08] LABS: Cytoplasmic Ab (C-ANCA) <1:20 titer (Neg:<1:20); Perinuclear Ab (P-ANCA) <1:20 titer (Neg:<1:20)
[2025-02-19 20:26] VITALS: BP 156/81; PULSE 78; RESP 18; TEMP 37.4; O2SAT 96
[2025-02-19] MEDS: MELATONIN 10 MG TABLET PO (21:27)
[2025-02-19 23:50] VITALS: PULSE 68; RESP 15
[2025-02-20 02:43] VITALS: BP 163/90; PULSE 74; RESP 18; TEMP 36.5; O2SAT 96
[2025-02-20 03:38] VITALS: BMI 40.8
[2025-02-20] MEDS: Piperacil/Tazobactam 3.375 GM in 0.9% Normal Saline (50mL MB+) 50 ML IV (05:28)
[2025-02-20 06:14] LABS: Hematocrit 37.4 % (40-54); Hemoglobin 12.1 g/dL (13.0-16.5); Immature Granulocytes Count 0.040 X10^3/uL (0.0-0.0); Mean Corp Hgb Conc 32.4 g/dL (32-36); Mean Corpuscular Volume 92.8 fL (80-94); Mean Platelet Vol. 9.5 fl (6.2-12.0); NRBC Flagged by Analyzer 0 % (0-5); Platelet Count 273 K/mm3 (150-450); RBC Distribution Width CV 13.3 % (11.6-14.6); RBC Distribution Width SD 45.7 fl (35.1-43.9); Red Blood Count 4.03 M/mm3 (4.6-6.2); White Blood Count 8.6 K/mm3 (4.4-11.0)
[2025-02-20 07:00] LABS: AST(SGOT) 49 U/L (<=37); Alanine Aminotransfer ALT/SGPT 32 U/L (<=46); Albumin, Serum 2.8 g/dL (3.4-4.8); Alkaline Phosphatase 84 U/L (40-129); Anion Gap 10 (5-15); BUN 24 mg/dL (4-19); BUN/Creat Ratio 19.4 RATIO (10-20); Calcium,Total 8.3 mg/dL (7.6-11.0); Carbon Dioxide 22.0 mmol/L (21.0-32.0); Chloride 106 mmol/L (98-108); Estimated Creatinine Clearance 66.12 ml/min (50-250); Globulin 3.5 g/dL (2.2-4.2); Glucose 107 mg/dL (70-99); Potassium 4.4 mmol/L (3.3-5.1)
[2025-02-20] MEDS: 0.9% Saline Lock 10 ML Syringe IV (07:01)
[2025-02-20 09:49] VITALS: BP 145/68; PULSE 53; RESP 16; TEMP 36.2; O2SAT 95
[2025-02-20] MEDS: Potassium Chloride Oral Tablet 20 MEQ 40 MEQ PO (09:51)
[2025-02-20] MEDS: APIXABAN 5 MG TABLET PO (09:52)
[2025-02-20] MEDS: Aspirin E.C. 81 MG Tablet PO (09:52)
--- NOTE | 2025-02-20 10:19 | CASEMGMT ---
Social Work The physician reported the patient is medically ready. SW sent a referral to TCU and he was accepted. SW notified the patient, nurse, and physician. MIN Zee
--- NOTE | 2025-02-20 10:24 | DS.PCM_ITS ---
Providers Date of Admission: 02/15/25 Primary Care Physician: Dr. Salvador Diaz MD Consultations 02/15/25 20:36 Consult: Cardiology Routine Consulting Provider: Isaias Velez Reason for Consult: AV dissociation EMERGENT Consult: No Notified: Yes Date Notified: 02/15/25 Time Notified: 19:01 Method of Notification: Verbal Consult: Nurse Ortho / Pulmonary Medicine Routine Consulting Provider: Intensivists/Pulmonary Med Reason for Consult: av heart block, new onset heart failure, SOB, hypocalcemia EMERGENT Consult: No Notified: Yes Date Notified: 02/15/25 Time Notified: 22:14 Method of Notification: Text Reason For Visit: SYMPTOMATIC HEART BLOCK Diagnosis Discharge Diagnosis (1) CHF (congestive heart failure): Status: Acute Code(s): I50.9 - Heart failure, unspecified (2) Isorhythmic AV dissociation: Status: Acute Code(s): I45.89 - Other specified conduction disorders Plan Patient is an 79-year-old male who presented to [facility] ED on 02/15/2025 with worsening shortness of breath. 1. Acute HFpEF exacerbation with acute hypoxia, improved ? Cardiology and resistance welder followed. Presented with worsening shortness of breath and volume overload. CT chest with mild vascular congestion and small bilateral pleural effusions. BNP 3571. Echo on 02/17 showed EF 65%, moderate concentric LV hypertrophy, stage II diastolic dysfunction, no other concerning findings. Patient weaned off supplemental oxygen at rest on 02/17 and volume overload appears improved. Repeat BNP 1400 on 02/18, much improved. Patient has significant bilateral foot swelling suspected secondary to lymphedema as below but legs otherwise are minimally swollen and he appears about back to his baseline. Continue compression stockings. Holding on any further Lasix at this time. 2. A-V dissociation ? Cardiology followed as above. Cardiology noted that patient appears to have isorhythmic A-V dissociation noted on admission. Beta-adebayo discontinued and has had improvement in this arrhythmia. No need for permanent pacemaker implantation at this time. Continue cardiac monitoring. 3. Fever of unknown origin, improved ? Nurse Ortho followed as above. Patient with fevers up to 102-103F on 02/16 and 02/[address] chest abdomen pelvis on 02/16 showed no discernible infectious etiology. Cultures negative. Autoimmune and vasculitis panel negative as well. Fevers resolved by 02/18. Will continue IV Zosyn while inpatient and plan to complete 7-day course of antibiotics total. 4. ROSSANA, improving ? Creatinine 0.94 on admit, worsened to 1.4 on hospital day 2. Remained stable at 1.4-1.5 for several days, now with some improvement with most recent creatinine 1.27 on 02/19. Suspect secondary to HFpEF exacerbation as above with some degree of ATN. Patient has had good urine output throughout this hospitalization. Continue to monitor daily BMP. 5. Nonsustained V. tach ? Cardiology followed as above. Patient had an episode of nonsustained V. tach of 25 beats overnight on 02/17. Asymptomatic. Stress test on 02/18 with no concerning findings. Patient notably had hypokalemia and mild hypomagnesemia as below and these were replaced. Per cardiology, no need for further testing at this time. Continue cardiac monitoring. 6. Mild hypokalemia and hypomagnesemia ? Potassium 3.4, magnesium 1.9 on 02/18. Had episode of nonsustained V. tach as above so both of these were repleted. 7. Acute on chronic debility with bilateral foot swelling suspected due to lymphedema ? PT/OT/case management following. Patient lives at home with his , apparently uses a cane for ambulation but has difficulty with ambulation due to his chronic lower extremity swelling. Patient with poor therapy scores to this point and reports worse bilateral foot pain than his baseline. Notably lower extremity duplex ultrasound early in admission was negative. Bilateral foot x- ray on 02/19 showed diffuse soft tissue swelling bilaterally but no other concerning findings. Findings appear most consistent with lymphedema. Will continue compression stockings while inpatient and recommend close outpatient follow-up with PCP to establish with a lymphedema clinic. Given his degree of debility, patient is agreeable now to SNF placement. Case management assisting with setting up SNF placement for the patient. Hopeful that patient will be medically ready for discharge tomorrow. 8. History of Ampulla of Vater mass, choledocholithiasis and cystic pancreatic tail lesions ? Follows with Dr. Sher in the office. See H&P note from 12/26 for further details. Most recently, patient had ERCP done in September with an apparent mass noted at the major papilla that was resected; also showed recurrent choledocholithiasis with removal and biliary stent placement x 1. Patient was hospitalized at the end of September for fever of unknown origin possibly secondary to cholangitis improved with a course of antibiotics. CT abdomen pelvis on this admission with unremarkable gallbladder, no biliary ductal dilation, pneumobilia related to prior sphincterotomy and previous biliary ductal stenting, no other concerning findings. No inpatient needs, continue close outpatient follow-up with GI. Chronic medical conditions: ? Class III obesity with MARTIN: BMI 41 on admit. Complicates hospital course and care. Continue home PAP therapy at night. ? Hypothyroidism: TSH mildly elevated at 4.3. Okay to continue home Synthroid. Recommend repeat TSH in 4 to 6 weeks and then follow-up with PCP for titration of Synthroid. ? History of DVT/PE, hypertension, hyperlipidemia: Eliquis initially held on admit given concern patient may need pacemaker placement, resumed on 02/17. Home beta-adebayo discontinued given A-V dissociation as above. Holding home lisinopril and hydrochlorothiazide given ROSSANA as above. Okay to continue home aspirin and statin. ? Peripheral neuropathy: Continue home gabapentin. DVT prophylaxis: Not indicated, on Eliquis CODE STATUS: Full code, verified Expected disposition: Home with home health care versus SNF, 1 to 2 days Total clinical time spent by myself addressing the patient's medical issues, reviewing all the data, and collaborating with patient's care team: 42 minutes. Medications at Discharge Home Medications lisinopril 40 mg tablet 40 mg PO DAILY blood pressure 01/31/13 atorvastatin 40 mg tablet 40 mg PO QHS cholesterol #90 TABLETS 09/05/16 gabapentin 300 mg capsule 300 mg PO QHS nerve pain 10/22/23 metoprolol succinate 50 mg tablet,extended release 24 hr 50 mg PO DAILY blood pressure 10/22/23 apixaban 5 mg tablet (Eliquis) 5 mg PO BID blood thinner 03/26/24 hydrochlorothiazide 25 mg tablet 25 mg PO DAILY reduce fluid 03/26/24 levothyroxine 125 mcg tablet 125 mcg PO DAILY disorder of thyroid gland 03/26/24 aspirin 81 mg tablet,delayed release (Adult Aspirin Regimen) 81 mg PO DAILY 08/31/24 multivitamin (Daily Multi-Vitamin tablet) 1 tab PO DAILY 08/31/24 acetaminophen 500 mg tablet (Acetaminophen Extra Strength) 1,000 mg PO DAILY 12/25/24 CPAP - Continuous Positive Airway Pressure([facility] INFORMATIONAL USE ONLY) MARTIN 02/17/25 Weight / BMI Weight Weight: 133 kg Body Mass Index (BMI) 40.8 ABG / Lab / Microbiology Data 02/20/25 05:24 02/20/25 05:24 Laboratory: Laboratory Results - last 24 hr 02/17/25 09:55: Cycl Citrul Peptide IgG 7, c-ANCA Antibody <1:20, Atypical p- ANCA 1:320 H, p-ANCA Antibody <1:20 02/18/25 17:05: Ur Random Sodium 90, Urine Creatinine 150.00 02/20/25 05:24: WBC 8.6, RBC 4.03 L, Hgb 12.1 L, Hct 37.4 L, MCV 92.8, MCH 30.0, MCHC 32.4, RDW Std Deviation 45.7 H, RDW Coeff of Gisella 13.3, Plt Count 273, MPV 9.5, Immature Gran % (Auto) 0.500, Neut % (Auto) 71.7 H, Lymph % (Auto) 15.4 L, [place] % (Auto) 9.3, Eos % (Auto) 2.8, Baso % (Auto) 0.3, Absolute Neuts (auto) 6.2, Absolute Lymphs (auto) 1.33, Nucleated RBC % 0, Sodium 138, Potassium 4.4, Chloride 106, Carbon Dioxide 22.0, Anion Gap 10, BUN 24 H, Creatinine 1.24 H, Estim Creat Clear Calc 66.12, Est GFR (MDRD) Non-Af 59 L, BUN/Creatinine Ratio 19.4, Glucose 107 H, Calcium 8.3, Total Bilirubin 0.61, AST 49 H, ALT 32, Alkaline Phosphatase 84, Total Protein 6.3, Albumin 2.8 L, Globulin 3.5, A lbumin/Globulin Ratio 0.8 L Microbiology: Microbiology 02/16/25 17:50 Blood Culture (Wb) - Pic Blood Culture - Preliminary No growth in 48 hours. 02/16/25 17:30 Blood Culture (Wb) - Pic Blood Culture - Preliminary No growth in 48 hours. 02/16/25 18:50 Urine, Clean Catch Urine Culture - Final Culture exhibits no growth. 02/16/25 16:01 Mucosa - Nasopharyngeal Respiratory Panel (PCR) - Final 02/16/25 15:20 Mucosa - Nose SARS-CoV-2, Influenza & RSV (PCR) - Final Radiography Diagnostic Testing: Radiology Impression Foot X-Ray 02/19/25 14:45 IMPRESSION: Diffuse soft tissue swelling. Reading Location: [facility] Foot X-Ray 02/19/25 14:45 IMPRESSION: Diffuse soft tissue swelling. Reading Location: [place] [address] Discharge Plan Admission Admit Date/Time: 02/15/25 18:47 Attending Provider: Andrea Serrano Primary Care Provider: Salvador Diaz Consulting Providers: Helen Feng; Isaias Velez; Giuseppe Alex; Eduar Hendrix; Carlitos Madsen; Wayne Jacobson; Werner Vanegas; Yoanna Avalos; Marvin Menard; Mojgan Thorpe; Gavin Degroot; Teresa Parker; Huan Vidal; Terence Rodriguez; Angelique Wrad; Reuben Hale; Nadeem Abarca; Thomas Cutler; Ju Perdomo; Aurelia Schulte; Manju Russell; Michelle White; Fadumo Barbosa; Ifeanyi Aden; Court Rico; Rebekah Dacosta; Jaylin Drew; Esteban Alcala; Court Wade; Sidney Green; Jake Lam; Randy Wright; Diego Gomez; Rancho Rene; Eleuterio Arrieta; Nata Cardoso; Franca Haas; Marylin Hurley; Kasey Cota; Larry Amaya; Gil Kirby; Eren Del Castillo; Harsh Valentine; Wade Thibodeaux Discharge Orders/Prescriptions Prescriptions: No Action lisinopril 40 MG tablet 40 mg PO DAILY Patient Comments: BLOOD PRESSURE atorvastatin 40 MG tablet 40 mg PO QHS Qty: 90 0RF Eliquis 5 mg tablet 5 mg PO BID levothyroxine 125 mcg tablet 125 mcg PO DAILY hydrochlorothiazide 25 mg tablet 25 mg PO DAILY multivitamin [Daily Multi-Vitamin] Tablet 1 tab PO DAILY aspirin [Adult Aspirin Regimen] 81 mg tablet,delayed release (DR/EC) 81 mg PO DAILY gabapentin 300 mg capsule 300 mg PO QHS metoprolol succinate 50 mg tablet extended release 24 hr 50 mg PO DAILY acetaminophen [Acetaminophen Extra Strength] 500 mg tablet 1,000 mg PO DAILY CPAP - Continuous Positive Airway Pressure([facility] INFORMATIONAL USE ONLY) Patient Comments: Pt states he has a CPAP at home, DME:[employer], CPAP+12 Referrals / Follow Up: Salvador Diaz MD [Primary Care Provider, Family Practice]
--- NOTE | 2025-02-20 10:24 | PCM.DC.SUM ---
Providers Date of Admission: 02/15/25 Date of Discharge: 02/20/25 Primary Care Physician: Dr. Salvador Diaz MD Consultations 02/15/25 20:36 Consult: Cardiology Routine Consulting Provider: Isaias Velez Reason for Consult: AV dissociation EMERGENT Consult: No Notified: Yes Date Notified: 02/15/25 Time Notified: 19:01 Method of Notification: Verbal Consult: Social Media Strategist / Pulmonary Medicine Routine Consulting Provider: Intensivists/Pulmonary Med Reason for Consult: av heart block, new onset heart failure, SOB, hypocalcemia EMERGENT Consult: No Notified: Yes Date Notified: 02/15/25 Time Notified: 22:14 Method of Notification: Text Reason For Visit: SYMPTOMATIC HEART BLOCK Diagnosis Discharge Diagnosis (1) CHF (congestive heart failure): Status: Acute Code(s): I50.9 - Heart failure, unspecified (2) Isorhythmic AV dissociation: Status: Acute Code(s): I45.89 - Other specified conduction disorders Medications at Discharge Home Medications atorvastatin 40 mg tablet 40 mg PO QHS cholesterol #90 TABLETS 09/05/16 apixaban 5 mg tablet (Eliquis) 5 mg PO BID blood thinner 03/26/24 hydrochlorothiazide 25 mg tablet 25 mg PO DAILY reduce fluid 03/26/24 levothyroxine 125 mcg tablet 125 mcg PO DAILY disorder of thyroid gland 03/26/24 aspirin 81 mg tablet,delayed release (Adult Aspirin Regimen) 81 mg PO DAILY 08/31/24 multivitamin (Daily Multi-Vitamin tablet) 1 tab PO DAILY 08/31/24 CPAP - Continuous Positive Airway Pressure([facility] INFORMATIONAL USE ONLY) MARTIN 02/17/25 acetaminophen 500 mg tablet (Acetaminophen Extra Strength) 1,000 mg (2 x 500 mg) PO TID PRN PRN fever or pain 30 days #0 tabs 02/20/25 amlodipine 5 mg tablet 5 mg PO DAILY 30 days #30 tabs 02/20/25 amoxicillin 875 mg-potassium clavulanate 125 mg tablet 1 tab PO BID 3 days #6 tabs 02/20/25 gabapentin 300 mg capsule 300 mg PO TID #0 caps 02/20/25 Hospital Course Operations None Procedures EKG, Stress test, Transthoracic echo and - (Chest x-ray, CT chest abdomen pelvis, venous Doppler study, foot x-ray x 2) Summary of Care Provided Minutes Spent on Discharge: 44 Hospital Course: Patient is an 79-year-old male who presented to [facility] ED on 02/15/2025 with worsening shortness of breath. Hospital course as noted below. Patient discharged to SNF in stable condition on 02/20. 1. Acute HFpEF exacerbation with acute hypoxia, improved ? Cardiology and ordnance technician followed. Presented with worsening shortness of breath and volume overload. CT chest with mild vascular congestion and small bilateral pleural effusions. BNP 3571. Echo on 02/17 showed EF 65%, moderate concentric LV hypertrophy, stage II diastolic dysfunction, no other concerning findings. Patient weaned off supplemental oxygen at rest on 02/17 and volume overload appears improved. Repeat BNP 1400 on 02/18, much improved. Patient has significant bilateral foot swelling suspected secondary to lymphedema as below but legs otherwise are minimally swollen and he appears about back to his baseline. Continue compression stockings. Will restart home hydrochlorothiazide on discharge but hold on any Lasix on discharge. 2. A-V dissociation, resolved ? Cardiology followed as above. Cardiology noted that patient appears to have isorhythmic A-V dissociation noted on admission. Beta-adebayo discontinued and this arrhythmia resolved. No need for permanent pacemaker implantation at this time. 3. Fever of unknown origin, improved ? Social Media Strategist followed as above. Patient with fevers up to 102-103F on 02/16 and 02/[address] chest abdomen pelvis on 02/16 showed no discernible infectious etiology. Cultures negative. Autoimmune and vasculitis panel negative as well. Fevers resolved by 02/18. Treated with IV Zosyn while inpatient and will discharge on Augmentin to complete 7-day course of antibiotics total, stop date 02/22. 4. ROSSANA, improving ? Creatinine 0.94 on admit, worsened to 1.4 on hospital day 2. Remained stable at 1.4-1.5 for several days, then approved 1.2 on 02/19 and stable at 1.2 on discharge. Suspect secondary to HFpEF exacerbation as above with some degree of ATN. Patient has had good urine output throughout this hospitalization. Resuming home hydrochlorothiazide on discharge but not resuming home lisinopril as below. Recommend repeat BMP in 3 to 5 days to ensure creatinine remains stable. 5. Nonsustained V. tach ? Cardiology followed as above. Patient had an episode of nonsustained V. tach of 25 beats overnight on 02/17. Asymptomatic. Stress test on 02/18 with no concerning findings. Patient notably had hypokalemia and mild hypomagnesemia as below and these were replaced. Per cardiology, no need for further testing at this time. 6. Mild hypokalemia and hypomagnesemia ? Potassium 3.4, magnesium 1.9 on 02/18. Had episode of nonsustained V. tach as above so both of these were repleted. 7. Acute on chronic debility with bilateral foot swelling suspected due to lymphedema and peripheral neuropathy ? PT/OT/case management followed. Patient lives at home with his , uses a cane for ambulation but has difficulty with ambulation due to his chronic lower extremity swelling. Patient with poor therapy scores while inpatient and reported worse bilateral foot pain than his baseline. Lower extremity duplex ultrasound early in admission was negative. Bilateral foot x-ray on 02/19 showed diffuse soft tissue swelling bilaterally but no other concerning findings. Findings appear most consistent with lymphedema. Patient also reports a shocklike pain down his legs suspect peripheral neuropathy is playing a role as well. Utilize compression stockings open patient with some improvement in edema. Increased gabapentin to 300 mg 3 times daily with some improvement. Patient stable for discharge to SNF on 02/20. Recommended that patient follow-up with PCP to establish with a lymphedema clinic in the future. 8. History of Ampulla of Vater mass, choledocholithiasis and cystic pancreatic tail lesions ? Follows with Dr. Sher in the office. See H&P note from 12/26 for further details. Most recently, patient had ERCP done in September with an apparent mass noted at the major papilla that was resected; also showed recurrent choledocholithiasis with removal and biliary stent placement x 1. Patient was hospitalized at the end of September for fever of unknown origin possibly secondary to cholangitis improved with a course of antibiotics. CT abdomen pelvis on this admission with unremarkable gallbladder, no biliary ductal dilation, pneumobilia related to prior sphincterotomy and previous biliary ductal stenting, no other concerning findings. No inpatient needs, continue close outpatient follow-up with GI. Chronic medical conditions: ? Class III obesity with MARTIN: BMI 41 on admit. Complicated hospital course and care. Continue home PAP therapy at night. ? Hypothyroidism: TSH mildly elevated at 4.3. Okay to continue home Synthroid. Recommend repeat TSH in 4 to 6 weeks and then follow-up with PCP for titration of Synthroid. ? History of DVT/PE, hypertension, hyperlipidemia: Eliquis initially held on admit given concern patient may need pacemaker placement, resumed on 02/17. Home beta-adebayo discontinued given A-V dissociation as above. Okay to continue home aspirin and statin. Home lisinopril and hydrochlorothiazide held during hospitalization given ROSSANA as above. Blood pressures increased to the 150s systolic by day of discharge and ROSSANA improving as above. Will start amlodipine 5 mg daily and resume home hydrochlorothiazide 25 mg daily on discharge. Total clinical time spent by myself addressing the patient's medical issues, reviewing all the data, and collaborating with patient's care team: 44 minutes. Physical Exam Const alert, oriented x3 and no apparent distress Constitutional Narrative: Elderly male, class III obesity, mildly fatigued appearing but otherwise sitting back comfortably in bed, conversing normally, in no acute distress. Stable. General Appearance: cooperative and comfortable HEENT normocephalic, head/scalp atraumatic, hearing grossly normal bilaterally, nasal mucous membranes and turbinates normal and moist oral mucous membranes Eyes PERRL, EOMs intact bilaterally and conjunctivae normal Neck full ROM Chest inspection of chest normal Resp normal respiratory effort and no use of accessory muscles Resp Narrative: Breathing comfortably on room air at rest. Diminished breath sounds in bilateral lung bases but otherwise good air movement throughout, no wheezing noted. Stable. Cardio regular rate, regular rhythm, no murmurs and peripheral pulses 2+ throughout GI normal to inspection, nondistended, normoactive bowel sounds, soft to palpation, non-tender and non-distended Back/Spine normal ROM Extremity full ROM Extremity Narrative: +2-3 pitting edema noted in feet bilaterally. Otherwise minimal edema noted in ankles and lower legs. No erythema noted. Minimal tenderness to palpation of the feet bilaterally. Stable. Skin no rashes or lesions noted Psych mental status grossly normal Weight / BMI Weight Weight: 133 kg Body Mass Index (BMI) 40.8 ABG / Lab / Microbiology Data 02/20/25 05:24 02/20/25 05:24 Laboratory: Laboratory Results - last 24 hr 02/17/25 09:55: Cycl Citrul Peptide IgG 7, c-ANCA Antibody <1:20, Atypical p-ANCA 1:320 H, p-ANCA Antibody <1:20 02/18/25 17:05: Ur Random Sodium 90, Urine Creatinine 150.00 02/20/25 05:24: WBC 8.6, RBC 4.03 L, Hgb 12.1 L, Hct 37.4 L, MCV 92.8, MCH 30.0, MCHC 32.4, RDW Std Deviation 45.7 H, RDW Coeff of Gisella 13.3, Plt Count 273, MPV 9.5, Immature Gran % (Auto) 0.500, Neut % (Auto) 71.7 H, Lymph % (Auto) 15.4 L, [place] % (Auto) 9.3, Eos % (Auto) 2.8, Baso % (Auto) 0.3, Absolute Neuts (auto) 6.2, Absolute Lymphs (auto) 1.33, Nucleated RBC % 0, Sodium 138, Potassium 4.4, Chloride 106, Carbon Dioxide 22.0, Anion Gap 10, BUN 24 H, Creatinine 1.24 H, Estim Creat Clear Calc 66.12, Est GFR (MDRD) Non-Af 59 L, BUN/Creatinine Ratio 19.4, Glucose 107 H, Calcium 8.3, Total Bilirubin 0.61, AST 49 H, ALT 32, Alkaline Phosphatase 84, Total Protein 6.3, Albumin 2.8 L, Globulin 3.5, Albumin/Globulin Ratio 0.8 L Microbiology: Microbiology 02/16/25 17:50 Blood Culture (Wb) - Pic Blood Culture - Preliminary No growth in 48 hours. 02/16/25 17:30 Blood Culture (Wb) - Pic Blood Culture - Preliminary No growth in 48 hours. 02/16/25 18:50 Urine, Clean Catch Urine Culture - Final Culture exhibits no growth. 02/16/25 16:01 Mucosa - Nasopharyngeal Respiratory Panel (PCR) - Final 02/16/25 15:20 Mucosa - Nose SARS-CoV-2, Influenza & RSV (PCR) - Final Radiography Diagnostic Testing: Radiology Impression Foot X-Ray 02/19/25 14:45 IMPRESSION: Diffuse soft tissue swelling. Reading Location: [place] [address] Foot X-Ray 02/19/25 14:45 IMPRESSION: Diffuse soft tissue swelling. Reading Location: [place] [address] D/C Instructions DC O2, CPAP, BIPAP Needs Home O2 Discharge instructions: No Meaningful Use Info Meaningful Use Meaningful Use Diagnoses (Choose all that apply): None applicable Discharge Plan Admission Admit Date/Time: 02/15/25 18:47 Primary Reason for Your Visit: Shortness of breath Attending Provider: Andrea Serrano Primary Care Provider: Salvador Diaz Consulting Providers: Helen Feng; Isaias Velez; Giuseppe Alex; Eduar Hendrix; Carlitos Madsen; Wayne Jacobson; Werner Vanegas; Yoanna Avalos; Marvin Menard; Mojgan North; Gavin Degroot; Teresa Parker; Huan Vidal; Terence Rodriguez; Angelique Ward; Reuben Hale; Nadeem Abarca; Thomas Cutler; Ju Perdomo; Aurelia Schulte; Manju Russell; Michelle White; Fadumo Barbosa; Ifeanyi Aden; Court Rico; Rebekah Dacosta; Jaylin Drew; Esteban Alcala; Court Wade; Sidney Green; Jake Lam; Randy Wright; Diego Gomez; [place] Rene; Eleuterio Arrieta; Nata Cardoso; Franca Haas; Marylin Hurley; Kasey Cota; Larry Amaya; Mirta,Gil; Eren Del Castillo; Harsh Valentine; Wade Thibodeaux Discharge Orders/Prescriptions Prescriptions: New amlodipine 5 mg Tablet 5 mg PO DAILY 30 Days Qty: 30 2RF gabapentin 300 mg Capsule 300 mg PO TID Qty: 0 0RF amoxicillin-pot clavulanate 875-125 mg tablet 1 tab PO BID 3 Days Qty: 6 0RF Continued atorvastatin 40 MG tablet 40 mg PO QHS Qty: 90 0RF Eliquis 5 mg tablet 5 mg PO BID levothyroxine 125 mcg tablet 125 mcg PO DAILY hydrochlorothiazide 25 mg tablet 25 mg PO DAILY multivitamin [Daily Multi-Vitamin] Tablet 1 tab PO DAILY aspirin [Adult Aspirin Regimen] 81 mg tablet,delayed release (DR/EC) 81 mg PO DAILY CPAP - Continuous Positive Airway Pressure([facility] INFORMATIONAL USE ONLY) Patient Comments: Pt states he has a CPAP at home, DME:[employer], CPAP+12 Changed acetaminophen [Acetaminophen Extra Strength] 500 mg tablet 1,000 mg PO TID PRN PRN (Reason: fever or pain) 30 Days Qty: 0 0RF Discontinued lisinopril 40 MG tablet 40 mg PO DAILY Patient Comments: BLOOD PRESSURE gabapentin 300 mg capsule 300 mg PO QHS metoprolol succinate 50 mg tablet extended release 24 hr 50 mg PO DAILY Referrals / Follow Up: Salvador Diaz MD [Primary Care Provider, Family Practice] Disposition Disposition (needs filled in before D/C Order can be placed): [facility] Charges/Coding Visit Charges Inpatient E&M: 26475 Disch Hosp >30min
--- NOTE | 2025-02-20 13:04 | NURSING ---
Called report to TCU. They will call us when there is a bed clean.
[2025-02-20 14:59] VITALS: BP 142/86; PULSE 74; RESP 20; TEMP 36.3; O2SAT 97
== END 2025-02-20 15:16 | disposition skilled nursing facility (03) | DRG 291 ==
LOC: ED 17:29 → ICU 19:22 → PCU 02-17 19:58
PROVIDERS: Internal Medicine Critical Care Medicine; Admitting Provider Internal Medicine; Emergency Provider Emergency Medicine; PCP Family Medicine; Visit Provider Hospitalist
DX: I11.0 Hypertensive heart disease with heart failure (principal); I50.31 Acute diastolic (congestive) heart failure; N17.0 Acute kidney failure with tubular necrosis; I47.20 Ventricular tachycardia, unspecified; I45.89 Other specified conduction disorders; Z68.41 Body mass index [BMI] 40.0-44.9, adult; Z79.01 Long term (current) use of anticoagulants; E03.9 Hypothyroidism, unspecified; G62.9 Polyneuropathy, unspecified; E83.51 Hypocalcemia; E78.5 Hyperlipidemia, unspecified; K21.9 Gastro-esophageal reflux disease without esophagitis; R00.1 Bradycardia, unspecified; R11.2 Nausea with vomiting, unspecified; E87.6 Hypokalemia; E83.42 Hypomagnesemia; I89.0 Lymphedema, not elsewhere classified; E66.813 Obesity, class 3; R50.9 Fever, unspecified; R09.02 Hypoxemia; R53.81 Other malaise; Z86.711 Personal history of pulmonary embolism; Z87.19 Personal history of other diseases of the digestive system; Z79.82 Long term (current) use of aspirin; Z79.899 Other long term (current) drug therapy; Z79.890 Hormone replacement therapy; Z91.148 Patient's other noncompliance with medication regimen for other reason; Z86.718 Personal history of other venous thrombosis and embolism
CPT/HCPCS: 36415; 36569; 71045; 71260; 73620; 74177; 78452; 80048; 80053; 80061; 80076; 81001; 82306; 82330; 82436; 82570; 82803; 83605; 83690; 83735; 83880; 83970; 84100; 84133; 84300; 84443; 84540; 84550; 85025; 86037; 86038; 86200; 86225; 86431; 87040; 87086; 87631; 87633; 93005; 93017; 93306; 93970; 94660; 97162; 97167; 97530; 97802; 97803; 99284; A9500; Q9967; A4216; C8929; J0612; J1938; J2405; J2785

== ENCOUNTER 2025-02-20 15:30 | Inpatient (IN) | payer MEDICARE, OTHER, SELFPAY ==
[2025-02-20 16:22] VITALS: BP 171/91; PULSE 73; RESP 18; TEMP 36.6; O2SAT 95
[2025-02-20 18:39] VITALS: BMI 40.7
--- NOTE | 2025-02-20 19:59 | PCM.HP.STD ---
HPI - General General Date of Admission: 02/20/25 Date of Service: 02/20/25 Chief Complaint: Here for rehabilitation. HPI Narrative FRAN PAREKH, is a 79 M who presents with followin02/15/2025 [facility] ED shortness of breath. On water pill for 8 years, stopped water pill on his own after reading [employer] feed. Increasing weight, increasing shortness of breath for 1 week, worse with walking or going up flight of stairs. Chronic bilateral lower extremity edema. Calcium 5.9, BNP 3571, Lasix 40mg IV given. 02/15/2025 Admit [facility]. Replace potassium, Replace Calcium, Hold Metoprolol, consult cardiology for bradycardia 2/2 AV block. Lasix IV for acute HFpEF. Calcitriol, Calcium iv for hypocalcemia. Hold Eliquis in case pacemaker implantation needed. 02/16/2025 Shortness of breath with slight improvement, nausea. Echo for AV dissociation. Zosyn for fever, vomiting, urine culture pending. Lasix IV for acute HFpEF. 02/17/2025 Mild fatigue. Lasix 40mg iv daily for acute HFpEF. Bradycardia improved with stopping Metoprolol, no pacemaker necessary. Zosyn IV for fever of unknown origin, autoimmune panel, vasculitis panel pending. 02/17/2025 Echo Normal LV size. Moderate concentric LVH. LVEF 65%. Stage 2 diastolic dysfunction. 02/18/2025 Mild fatigue, V Tach overnight, non sustained, no recurrence. Weaned off oxygen, stop Lasix for acute HFpEF. Zosyn IV for FUO. Cardiology recommended no further testing for V Tach. 02/19/2025 Tired, pain in feet with walking, Morgan out. Zosyn IV for 7 days for FUO, CT abdomen/pelvis negative. PT/OT SNF. Compression for lymphedema. 02/20/2025 Admit to TCU with debility, here for rehabilitation, strengthening, prior to discharge home with . [facility] Medical History (Updated 02/20/25 @ 20:[address] 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 Elevated liver enzymes Pancreatic mass High cholesterol Hx of gastroesophageal reflux (GERD) Hypertension Home Medications ?Medication ?Instructions ?Recorded ?Last Taken ?Type atorvastatin 40 mg tablet 40 mg PO QHS cholesterol #90 09/05/16 02/19/25 Rx TABLETS apixaban 5 mg tablet (Eliquis) 5 mg PO BID blood thinner 03/26/24 02/20/25 History hydrochlorothiazide 25 mg tablet 25 mg PO DAILY reduce fluid 03/26/24 02/20/25 History levothyroxine 125 mcg tablet 125 mcg PO DAILY disorder of 03/26/24 02/20/25 History thyroid gland aspirin 81 mg tablet,delayed 81 mg PO DAILY heart 08/31/24 02/20/25 History release (Adult Aspirin Regimen) multivitamin (Daily Multi-Vitamin 1 tab PO DAILY supplement 08/31/24 12/25/24 History tablet) CPAP - Continuous Positive Airway MARTIN 02/17/25 Unknown History Pressure([facility] INFORMATIONAL USE ONLY) acetaminophen 500 mg tablet 1,000 mg (2 x 500 mg) PO TID PRN 02/20/25 02/15/25 Rx (Acetaminophen Extra Strength) PRN pain 30 days #0 tabs amlodipine 5 mg tablet 5 mg PO DAILY blood pressure 30 02/20/25 02/19/25 Rx days #30 tabs amoxicillin 875 mg-potassium 1 tab PO BID infection 3 days #6 02/20/25 Unknown Rx clavulanate 125 mg tablet tabs gabapentin 300 mg capsule 300 mg PO TID leg pain #0 caps 02/20/25 02/19/25 Rx Allergy/AdvReac Type Severity Reaction Status Date / Time azithromycin (From Zithromax) Allergy Itching Verified 02/15/25 12:51 bee venom protein (honey bee) AdvReac Swelling Verified 02/15/25 12:51 venom-wasp (wasps) AdvReac Swelling Verified 02/15/25 12:51 Surgical History History of total right hip arthroplasty S/P carpal tunnel release History of tonsillectomy History of ERCP Social History (Updated 02/20/25 @ 20:[address] Wagner Mustafa MD) household members: spouse Smoking Status: Never smoker alcohol intake: never substance use type: does not use ROS Constitutional Constitutional: Reports weakness; Denies chills, fever(s) or weight gain ENT HEENT: Denies headache(s), nasal congestion or nasal discharge Cardiovascular Cardiovascular: Denies chest pain or palpitations Respiratory/Chest Respiratory/Chest: Denies cough, excessive phlegm production or shortness of breath with exertion Gastrointestinal Gastrointestinal: Denies abdominal pain, nausea or vomiting Genitourinary Genitourinary: Denies dysuria Musculoskeletal Musculoskeletal: Denies joint pain or joint swelling Integumentary Integumentary: Denies rash or wounds Neurologic Neurologic: Denies focal weakness, numbness or tingling Psychiatric Psychiatric: Denies anxiety, auditory hallucinations, depression, homicidal ideation or suicidal ideation Vital Signs Vital Signs Vital Signs: 02/20/25 16:22 Temperature 98 F Temperature Source Oral Pulse Rate 73 Respiratory Rate 18 Blood Pressure 171/91 H Blood Pressure Mean 117 Blood Pressure Source Monitor Pulse Ox 95 Oxygen Delivery Method Room Air Oxygen Flow Rate (L/min) 0 Weight Weight: 132.449 kg Body Mass Index (BMI) 40.7 Physical Exam Const alert General Appearance: cooperative HEENT normocephalic Eyes PERRL and EOMs intact bilaterally Neck supple, no JVD and no carotid bruits Resp normal respiratory effort, normal air movement and clear to auscultation bilaterally Cardio regular rate and regular rhythm GI normal to inspection, nondistended, normoactive bowel sounds, non-tender and non-distended Extremity normal capillary refill General Extremity: edema bilateral (3+ pitting.) lower extremity Skin no rashes or lesions noted General Skin Exam: no breakdown Psych affect normal Appearance: appropriate Assessment & Plan Assessment/Plan (1) Debility: (2) Acute respiratory failure with hypoxia: (3) Acute heart failure with preserved ejection fraction (HFpEF): (4) Bradycardia: (5) AV heart block: (6) Hypokalemia: (7) Hypocalcemia: (8) NSVT (nonsustained ventricular tachycardia): (9) Fever, unknown origin: (10) Essential (primary) hypertension: (11) Lymphedema: (12) Pulmonary embolism: (13) Hyperlipidemia, unspecified: (14) Neuropathic pain: (15) Hypothyroidism: PLAN: Plan 79 year old male with below past medical history hospitalized for acute respiratory failure 2/2 acute HFpEF, complicated by bradycardia 2/2 AV block, NSVT, hypokalemia, hypocalcemia, fever unknown origin, lymphedema, neuropathic pain, admitted to TCU with debility, here for rehabilitation, strengthening, prior to discharge home with . Debility - PT/OT. Pain - Tylenol 1000mg q8. Bowel - senna/colace 1 tablet bid, Magnesium citrate 300mL daily prn. Adult immunization - Administer pneumonia vaccine, covid vaccine, flu vaccine as appropriate. DVT prophylaxis - Eliquis. Hypertension - Amlodipine 5mg daily, HCTZ 25mg daily. Fever of unknown origin - Augmentin 875mg po bid thru 02/23/2025. Pulmonary embolism (recurrent) - Eliquis 5mg bid. Hyperlipidemia - Atorvastatin 40mg qhs. Neuropathic pain - Gabapentin 300mg tid. Hypothyroidism - Levothyroxine 125mcg daily. Insomnia - Melatonin 10mg qhs. Nutrition - MVI 1 tablet daily.
[2025-02-20] MEDS: Senna/Docusate Sodium 1 Tablet PO (21:34)
[2025-02-20] MEDS: APIXABAN 5 MG TABLET PO (21:34)
[2025-02-20] MEDS: MELATONIN 10 MG TABLET PO (21:34)
[2025-02-20 22:05] VITALS: PULSE 68; RESP 20; O2SAT 96
[2025-02-21 06:45] LABS: Hematocrit 37.0 % (40-54); Hemoglobin 12.2 g/dL (13.0-16.5); Immature Granulocytes Count 0.040 X10^3/uL (0.0-0.0); Mean Corp Hgb Conc 33.0 g/dL (32-36); Mean Corpuscular Volume 92.3 fL (80-94); Mean Platelet Vol. 8.8 fl (6.2-12.0); NRBC Flagged by Analyzer 0 % (0-5); Platelet Count 284 K/mm3 (150-450); RBC Distribution Width CV 13.2 % (11.6-14.6); RBC Distribution Width SD 44.8 fl (35.1-43.9); Red Blood Count 4.01 M/mm3 (4.6-6.2); White Blood Count 8.4 K/mm3 (4.4-11.0)
[2025-02-21 06:55] LABS: Anion Gap 9 (5-15); BUN 18 mg/dL (4-19); BUN/Creat Ratio 17.3 RATIO (10-20); Calcium,Total 8.4 mg/dL (7.6-11.0); Carbon Dioxide 23.1 mmol/L (21.0-32.0); Chloride 105 mmol/L (98-108); Estimated Creatinine Clearance 77.90 ml/min (50-250); Glucose 111 mg/dL (70-99); Potassium 4.5 mmol/L (3.3-5.1)
[2025-02-21 09:27] VITALS: BP 144/57; PULSE 58; RESP 17; TEMP 36.1
[2025-02-21] MEDS: APIXABAN 5 MG TABLET PO ×2 (09:34→21:30)
[2025-02-21] MEDS: Senna/Docusate Sodium 1 Tablet PO ×2 (09:34→21:30)
[2025-02-21] MEDS: Tuberculin,Purif.prot.deriv. 50 TU/ML Vial 0.1 ML ID (09:34)
--- NOTE | 2025-02-21 11:16 | MDS.RN ---
MDS entry tracker complete, Pain assessed.
--- NOTE | 2025-02-21 12:34 | NURSING ---
Administrative Support Specialist Note; Activity Asset: Genesis Prater is independent in his choice of daily activities. He enjoys tv, reading spending time w/family, friends and his 2 cats. He was informed of the pet policy for cat visits. He welcomes both the hair spring cutter and therapy dog (when his cats are not here) visits when available. Staff will remind him of weekly activities and respect his tight o say no.
--- NOTE | 2025-02-21 12:56 | NURSING ---
left dr yang note about rash on pt back
[2025-02-21] MEDS: Hydrocortisone 2.5% Crm 1 APPLIC TOPICAL ×2 (14:14→21:27)
--- NOTE | 2025-02-21 15:25 | RAD_ITS ---
RAD/L/S Spine Min 4 Views
--- NOTE | 2025-02-21 15:25 | CASEMGMT ---
Social Work SW met with patient to complete initial assessment. Introduced self and role. 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 SW attempted to transition to the assessment questions, but pt interrupted, Oh I'm not finished. SW ongoing active listening. SW was able to complete assessment. See assessment for details. Verified contacts and code status as full code. Educated to Medicare benefit and copay coverage. Pt's goal is to return home alone at [facility]. Pt did state his is coming into town next week to be with pt. SW will continue to follow for DC planning. Kyleigh Schafer MSW BANK REPRESENTATIVE
--- NOTE | 2025-02-21 15:55 | PCM.PN.DRR ---
Documented by User: José Luis Wilson 02/21/25 16:20 TCU RX Drug Regimen Review Subjective/Objective Subjective/Objective Subjective: TCU admission note. 79 year old male with below past medical history hospitalized for acute respiratory failure 2/2 acute HFpEF, complicated by bradycardia 2/2 AV block, NSVT, hypokalemia, hypocalcemia, fever unknown origin, lymphedema, neuropathic pain, admitted to TCU with debility, here for rehabilitation, strengthening, prior to discharge home with . Objective: Allergies azithromycin (From Zithromax) Allergy (Verified 02/15/25 12:51) Itching bee venom protein (honey bee) Adverse Reaction (Verified 02/15/25 12:51) Swelling venom-wasp (wasps) Adverse Reaction (Verified 02/15/25 12:51) Swelling Current Medications Generic Name Dose Route Start Last Admin Trade Name Freq PRN Reason Stop Dose Admin Acetaminophen 1,000 mg 02/20/25 22:00 02/21/25 13:24 Acetaminophen 500 Mg Tablet PO 1,000 mg Q8 PRABHA Administration Amlodipine Besylate 5 mg 02/21/25 10:00 02/21/25 09:34 Amlodipine 5 Mg Tablet PO 5 mg DAILY PRABHA Administration Protocol Amoxicillin/Clavulanate Potassium 875 mg 02/20/25 22:00 02/21/25 09:33 Amox/Clavulanate 875 Mg Tablet PO 02/23/25 10:01 875 mg BID PRABHA Administration Apixaban 5 mg 02/20/25 22:00 02/21/25 09:34 Apixaban 5 Mg Tablet PO 5 mg BID PRABHA Administration Atorvastatin Calcium 40 mg 02/20/25 22:00 02/20/25 21:34 Atorvastatin Calcium 40 Mg Tablet PO 40 mg QHS PRABHA Administration Gabapentin 300 mg 02/20/25 22:00 02/21/25 13:24 Gabapentin 300 Mg Capsule PO 300 mg TID PRABHA Administration Hydrochlorothiazide 25 mg 02/21/25 10:00 02/21/25 09:34 Hydrochlorothiazide 25 Mg Tablet PO 25 mg DAILY PRABHA Administration Protocol Hydrocortisone 1 applic 02/21/25 13:41 02/21/25 14:14 Hydrocortisone 2.5% Crm TOPICAL 1 applic TID PRN PRN Administration RASH/TOPICAL IRRITATION Protocol Levothyroxine Sodium 125 mcg 02/21/25 06:00 02/21/25 06:17 Levothyroxine 125 Mcg Tablet PO 125 mcg DAILY@0600 PRABHA Administration Magnesium Citrate 300 ml 02/20/25 20:12 Magnesium Citrate 300 Ml PO DAILY PRN Constipation Melatonin 10 mg 02/20/25 22:00 02/20/25 21:34 Melatonin 10 Mg Tablet PO 10 mg QHS PRABHA Administration Methylprednisolone 16 mg 02/21/25 17:00 Methylprednisolone Dosepak 4 Mg Box PO 02/26/25 08:59 1700 PRABHA Taper Multivitamins 1 tablet 02/21/25 08:00 02/21/25 09:33 Multivitamins,Therapeutic Tablet PO 1 tablet DAILYCM PRABHA Administration Senna/Docusate Sodium 1 tablet 02/20/25 22:00 02/21/25 09:34 Senna/Docusate Sodium 1 Tablet PO 1 tablet BID PRABHA Administration Sodium Chloride 10 - 40 ml 02/20/25 16:23 0.9% Saline Lock 10 Ml Syringe IV UD PRN SALINE FLUSH Tuberculin PPD 0.1 ml 02/28/25 10:00 Tuberculin,Purif.Prot.Deriv. 50 Tu/Ml Vial ID 02/28/25 10:01 X1 ONE Problem List Neuropathic pain (Acute) Hyperlipidemia, unspecified (Acute) Pulmonary embolism (Acute) Lymphedema (Acute) Essential (primary) hypertension (Acute) Fever, unknown origin (Acute) Hypokalemia (Acute) Bradycardia (Acute) Acute heart failure with preserved ejection fraction (HFpEF) (Acute) Acute respiratory failure with hypoxia (Acute) Debility (Acute) NSVT (nonsustained ventricular tachycardia) (Acute) AV heart block (Acute) Hypocalcemia (Acute) Vital Signs Temp Pulse Resp BP Pulse Ox O2 Del Method O2 Flow Rate 97.0 F L 58 L 17 144/57 H 96 Room Air 0 02/21/25 09:27 02/21/25 09:27 02/21/25 09:27 02/21/25 09:27 02/20/25 22:05 02/21/25 09:27 02/20/25 16:22 FiO2 21 02/21/25 03:00 Oxygen Flow Rate (L/min) 0 Oxygen Delivery Method Room Air Weight: 132.449 kg Body Mass Index (BMI) 40.7 Sodium 137 mmol/L (133-145) 02/21/25 06:11 Potassium 4.5 mmol/L (3.3-5.1) 02/21/25 06:11 Chloride 105 mmol/L (98-108) 02/21/25 06:11 Carbon Dioxide 23.1 mmol/L (21.0-32.0) 02/21/25 06:11 Anion Gap 9 (5-15) 02/21/25 06:11 BUN 18 mg/dL (4-19) 02/21/25 06:11 Creatinine 1.05 mg/dL (0.70-1.20) 02/21/25 06:11 Est GFR (MDRD) Non-Af 72 (>60) 02/21/25 06:11 BUN/Creatinine Ratio 17.3 RATIO (10-20) 02/21/25 06:11 Glucose 111 mg/dL (70-99) H 02/21/25 06:11 Assessment/Plan: 1. Pain: acetaminophen 1000 mg PO Q8. Please continue to monitor pain levels and LFTs (AST/ALT = 49-32 U/L on 02/20/25). 2. Bowel: senna/docusate 1 tablet PO BID, magnesium citrate 300 mL PO daily PRN constipation. The patient has not required any PRN doses of magnesium citrate so far this admission, and the patient's last bowel movement was documented on 02/20/25. Please continue to monitor for bowel movements, for PRN medication usage, and for constipation/diarrhea. 3. Fever of unknown origin: amoxicillin/clavulanate 875/125 mg PO BID through 02/23/25. Please continue to monitor for fevers (T = 97.0 F on 02/21/25), WBC count (WBC = 8.4 K/mm3 on 02/21/25), for chills, renal function (serum creatinine = 1.05 mg/dL with creatinine clearance ~ 78 mL/min on 02/21/25), and for GI distress with amoxicillin/clavulanate administration. 4. Hypertension: amlodipine 5 mg PO daily, hydrochlorothiazide 25 mg PO daily. Please continue to monitor blood pressures (recent range = 139-171/57-91 mmHg), for lower extremity edema, renal function (serum creatinine = 1.05 mg/dL with creatinine clearance ~ 78 mL/min on 02/21/25), sodium levels (Na = 137 mmol/L on 02/21/25). The patient's blood pressures have been elevated over the past several days, please consider increasing the patient's amlodipine to 10 mg PO daily. 5. Pulmonary embolism: Apixaban 5 mg PO BID. Please continue to monitor for s/s of a PE such as chest pain, shortness of breath, for s/s of bleeding/excessive bruising, hemoglobin levels (Hgb = 12.2 g/dL on 02/21/25), and platelet counts (Plt = 284 K/mm3 on 02/21/25). 6. Hyperlipidemia: atorvastatin 40 mg PO QHS. Please continue to monitor lipid levels (cholesterol = 91 mg/dL with LDL = 36 mg/dL on 02/16/25), LFTs (AST/ALT = 49-32 U/L on 02/20/25), and for myalgias. 7. Rash: methylprednisolone dosepak, hydrocortisone 2.5% 1 application topically TID PRN rash on back. Please continue to monitor for resolution of rash, for agitation, blood glucose levels (BG = 111 mg/dL on 02/21/25), and blood pressures (recent range = 139-171/57-91 mmHg). 8. Neuropathic pain: gabapentin 300 mg PO TID. Please continue to monitor for neuropathic pain, renal function (serum creatinine = 1.05 mg/dL with creatinine clearance ~ 78 mL/min on 02/21/25), lower extremity edema, and for dizziness/drowsiness/syncope/ataxia/falls. 9. Hypothyroidism: levothyroxine 125 mcg PO daily. Please continue to monitor thyroid hormone levels (TSH = 4.370 uIU/mL on 02/15/25), and for s/s of hypo/hyperthyroidism. 10. Insomnia: melatonin 10 mg PO QHS. Please continue to monitor for insomnia, drowsiness, and dizziness. 11. Nutrition: multivitamin 1 tablet PO daily. Please continue to monitor overall nutritional status. Assessment/Plan for indications treated with psychotropic medications: NA Medical chart and medication regimen reviewed. The following medication irregularities or issues were identified: 1. Hypertension: amlodipine 5 mg PO daily, hydrochlorothiazide 25 mg PO daily. The patient's blood pressures have been elevated over the past several days, please consider increasing the patient's amlodipine to 10 mg PO daily. Date Date of Note: 02/21/25 Documented by User: Dr. Wagner Mustafa MD 02/21/25 19:52 TCU RX Drug Regimen Review Provider Comments Provider responsibility Provider Comments to Recommendations by Pharmacy Agree
--- NOTE | 2025-02-21 16:11 | NURSING ---
pt off unit from [id number] for xray
[2025-02-21] MEDS: 0.9% Saline Lock 10 ML Syringe IV (16:14)
[2025-02-21] MEDS: MethylPREDNISolone DosePak 4 MG BOX PO ×2 (16:14→21:28)
[2025-02-21] MEDS: MELATONIN 10 MG TABLET PO (21:29)
[2025-02-21 22:30] VITALS: RESP 20
[2025-02-22 09:16] VITALS: BP 160/76; PULSE 64; RESP 16; TEMP 36.3; O2SAT 94
[2025-02-22] MEDS: MethylPREDNISolone DosePak 4 MG BOX PO ×4 (09:21→20:59)
[2025-02-22] MEDS: APIXABAN 5 MG TABLET PO ×2 (09:22→21:00)
[2025-02-22] MEDS: Senna/Docusate Sodium 1 Tablet PO ×2 (09:22→20:58)
[2025-02-22] MEDS: 0.9% Saline Lock 10 ML Syringe IV (09:24)
[2025-02-22] MEDS: Hydrocortisone 2.5% Crm 1 APPLIC TOPICAL (16:21)
[2025-02-22] MEDS: MELATONIN 10 MG TABLET PO (20:59)
[2025-02-23] MEDS: 0.9% Saline Lock 10 ML Syringe IV ×3 (05:41→22:07)
[2025-02-23 09:04] VITALS: BP 144/76; PULSE 67; RESP 18; TEMP 36.4; O2SAT 94
[2025-02-23] MEDS: MethylPREDNISolone DosePak 4 MG BOX PO ×4 (09:08→22:08)
[2025-02-23] MEDS: APIXABAN 5 MG TABLET PO ×2 (09:11→22:08)
[2025-02-23] MEDS: Senna/Docusate Sodium 1 Tablet PO ×2 (09:11→22:13)
[2025-02-23] MEDS: Hydrocortisone 2.5% Crm 1 APPLIC TOPICAL (09:17)
[2025-02-23 20:00] VITALS: PULSE 76; O2SAT 95
[2025-02-23] MEDS: MELATONIN 10 MG TABLET PO (22:09)
[2025-02-24 06:45] VITALS: PULSE 70; O2SAT 94
[2025-02-24 08:41] VITALS: BP 153/88; PULSE 67; RESP 17; TEMP 36.4; O2SAT 96
[2025-02-24] MEDS: APIXABAN 5 MG TABLET PO ×2 (08:44→21:06)
[2025-02-24] MEDS: MethylPREDNISolone DosePak 4 MG BOX PO ×3 (08:44→21:05)
[2025-02-24] MEDS: Senna/Docusate Sodium 1 Tablet PO ×2 (08:48→21:11)
[2025-02-24] MEDS: 0.9% Saline Lock 10 ML Syringe IV ×2 (08:56→21:06)
[2025-02-24] MEDS: Hydrocortisone 2.5% Crm 1 APPLIC TOPICAL (11:26)
[2025-02-24 11:28] VITALS: PULSE 51; RESP 17; O2SAT 94
--- NOTE | 2025-02-24 11:58 | NURSING ---
pt resting in bed, offered to get pt to recliner chair & pt refused. states I am gonna wait until therapy comes in & I want them to see how well I am doing, I want to go home Asked pt if he got up over weekend & pt stated that he was up and ambulated to BR for them. updated therapist on pts refusal
[2025-02-24] MEDS: COVID VAC 25-26 (12UP)(MOD)/PF 50 MCG/0.5 ML SYRINGE IM (17:54)
[2025-02-24] MEDS: MELATONIN 10 MG TABLET PO (21:07)
[2025-02-24 22:15] VITALS: PULSE 68; RESP 10; O2SAT 96
[2025-02-25 07:47] VITALS: BP 142/72; PULSE 61; RESP 20; TEMP 36.3; O2SAT 95
[2025-02-25] MEDS: MethylPREDNISolone DosePak 4 MG BOX PO ×2 (07:48→21:07)
[2025-02-25] MEDS: APIXABAN 5 MG TABLET PO ×2 (07:49→21:06)
[2025-02-25] MEDS: Senna/Docusate Sodium 1 Tablet PO ×2 (07:51→21:05)
--- NOTE | 2025-02-25 16:07 | CHAPLAIN ---
Type of Pastoral Visit ___ Initial Visit _x__ Follow-up Visit ___ On-call Visit ___ General Patient Visit ___ Spiritual Assessment ___ Family Conference ___ Bereavement ___ Rapid Response ___ Code Blue ___ Other (describe below) Pastoral Care Referral From _x__ Patient ___ Family ___ Nurse ___ Physician ___ Ship'S Cook ___ Hardwood Sawyer ___ Other (describe below) Sacrament/Intervention _x__ Active listening ___ Anointing ___ Adventism ___ Bereavement ___ Communion ___ [place] exploration ___ _x__ Life review _x__ Prayer ___ Reconciliation ___ Sacrament of Sick ___ Supportive presence ___ Wedding ___ Other (describe below) Pastoral Comments this is a follow up visit to patient who was seen in ICU previously; pt is very talkative and gives lots of life review; pt is optimistic about his recovery and hopes that his can also heal from her ankle injury; pt has had a busy life of work and service; pt is a man of ijeoma and expresses it easily; presence and prayers welcomed
[2025-02-25 17:08] VITALS: BMI 38.9
[2025-02-25] MEDS: 0.9% Saline Lock 10 ML Syringe IV (21:04)
[2025-02-25] MEDS: MELATONIN 10 MG TABLET PO (21:07)
[2025-02-26 06:43] VITALS: PULSE 78; O2SAT 94
[2025-02-26] MEDS: APIXABAN 5 MG TABLET PO ×2 (10:09→21:34)
[2025-02-26] MEDS: MethylPREDNISolone DosePak 4 MG BOX PO (10:09)
[2025-02-26] MEDS: Senna/Docusate Sodium 1 Tablet PO ×2 (10:11→21:33)
--- NOTE | 2025-02-26 10:25 | CASEMGMT ---
Social Work IDT met with patient and for care plan meeting. Discussed patient's progress in PT/OT/SN/RDN. initially asked why pt was admitted. RN educated to H&P noting pt was taking lasix and read something online and stopped taking those meds. had additional questions. RN referred to Dr. Mustafa to answer questions. requested Dr to contact dtr. RN to leave communication. and pt continued to ask medical questions and frustrated with inability to get answers in real time. SW continued to educate and redirect to floor PHOTOGRAPHY AND PRINTS CURATOR and Dr to assist in answering all questions. questioned the reason for the POC meeting. SW educated the additional 5 disciplines to report to other areas of care for the pt during his stay. allowed POC meeting to proceed. Disciplines provided information. SW educated to Medicare benefit. Provided pt/family with written communication of insurance process and copay coverage during stay. expressed concern with pt's readmissions and ongoing medical issues. SW validated and the goal is for pt to DC home safely and stable. SW will assist with coordination of resources and needs once established at time of DC. stated she is home for the month of March, then 30 days, and will be home permanently after that, knowing pt needs support at home. SW will continue to follow for DC planning. Kyleigh Schafer MSW CONSTRUCTION EQUIPMENT TECHNICIAN
--- NOTE | 2025-02-26 11:11 | MDS.RN ---
Written communication to call daughter Xiao for medical information and updates.
--- NOTE | 2025-02-26 13:08 | MDS.RN ---
Written communication to Dr. Mustafa to call daughter Xiao for medical information and updates.
[2025-02-26] MEDS: 0.9% Saline Lock 10 ML Syringe IV ×2 (16:44→20:59)
--- NOTE | 2025-02-26 21:00 | NURSING ---
Both PICC lumens flushed with blood return,
[2025-02-26] MEDS: MELATONIN 10 MG TABLET PO (21:35)
[2025-02-27] MEDS: Hydrocortisone 2.5% Crm 1 APPLIC TOPICAL (08:03)
[2025-02-27 08:34] VITALS: BP 156/78; PULSE 75; RESP 18; TEMP 36.6; O2SAT 95
[2025-02-27] MEDS: Senna/Docusate Sodium 1 Tablet PO ×2 (08:41→21:22)
[2025-02-27] MEDS: APIXABAN 5 MG TABLET PO ×2 (08:42→21:22)
[2025-02-27 10:00] VITALS: PULSE 80; O2SAT 94
[2025-02-27] MEDS: 0.9% Saline Lock 10 ML Syringe IV (14:32)
[2025-02-27] MEDS: MELATONIN 10 MG TABLET PO (21:22)
[2025-02-28 07:28] LABS: Hematocrit 43.9 % (40-54); Hemoglobin 14.4 g/dL (13.0-16.5); Immature Granulocytes Count 0.150 X10^3/uL (0.0-0.0); Mean Corp Hgb Conc 32.8 g/dL (32-36); Mean Corpuscular Volume 90.5 fL (80-94); Mean Platelet Vol. 8.3 fl (6.2-12.0); NRBC Flagged by Analyzer 0 % (0-5); Platelet Count 420 K/mm3 (150-450); RBC Distribution Width CV 13.4 % (11.6-14.6); RBC Distribution Width SD 44.8 fl (35.1-43.9); Red Blood Count 4.85 M/mm3 (4.6-6.2); White Blood Count 9.3 K/mm3 (4.4-11.0)
[2025-02-28 08:24] LABS: Anion Gap 10 (5-15); BUN 33 mg/dL (4-19); BUN/Creat Ratio 26.3 RATIO (10-20); Calcium,Total 9.2 mg/dL (7.6-11.0); Carbon Dioxide 22.3 mmol/L (21.0-32.0); Chloride 103 mmol/L (98-108); Estimated Creatinine Clearance 62.85 ml/min (50-250); Glucose 103 mg/dL (70-99); Potassium 4.2 mmol/L (3.3-5.1)
--- NOTE | 2025-02-28 09:23 | NURSING ---
Streetcar Starter Note; MDS for 02/27/2025 Complete
[2025-02-28 09:48] VITALS: BP 115/83; PULSE 91; RESP 16; TEMP 36.3; O2SAT 95
[2025-02-28] MEDS: APIXABAN 5 MG TABLET PO ×2 (10:45→21:33)
[2025-02-28] MEDS: Senna/Docusate Sodium 1 Tablet PO ×2 (10:45→21:32)
[2025-02-28] MEDS: 0.9 % NaCl (Sterile) Posiflush 10 mL IV (10:46)
[2025-02-28] MEDS: Tuberculin,Purif.prot.deriv. 50 TU/ML Vial 0.1 ML ID (13:27)
[2025-02-28] MEDS: MELATONIN 10 MG TABLET PO (21:33)
[2025-02-28] MEDS: 0.9% Saline Lock 10 ML Syringe IV (21:35)
[2025-02-28 22:30] VITALS: PULSE 84; RESP 16; O2SAT 93
[2025-03-01 09:05] VITALS: BP 120/72; PULSE 84; RESP 16; TEMP 36.6; O2SAT 96
[2025-03-01] MEDS: APIXABAN 5 MG TABLET PO ×2 (09:08→21:11)
[2025-03-01] MEDS: Hydrocortisone 2.5% Crm 1 APPLIC TOPICAL (09:08)
[2025-03-01] MEDS: Senna/Docusate Sodium 1 Tablet PO ×2 (09:10→21:13)
[2025-03-01] MEDS: 0.9% Saline Lock 10 ML Syringe IV (09:10)
[2025-03-01 20:00] VITALS: PULSE 102; RESP 18; O2SAT 97
[2025-03-01] MEDS: MELATONIN 10 MG TABLET PO (21:10)
[2025-03-02 08:32] VITALS: BP 127/79; PULSE 76; RESP 17; TEMP 36.3; O2SAT 96
[2025-03-02] MEDS: APIXABAN 5 MG TABLET PO ×2 (08:35→21:20)
[2025-03-02] MEDS: Senna/Docusate Sodium 1 Tablet PO ×2 (08:37→21:19)
[2025-03-02] MEDS: 0.9% Saline Lock 10 ML Syringe IV (17:19)
[2025-03-02 20:39] VITALS: PULSE 84; RESP 16; O2SAT 97
[2025-03-02] MEDS: MELATONIN 10 MG TABLET PO (21:20)
[2025-03-02 22:40] VITALS: PULSE 81; RESP 14; O2SAT 95
[2025-03-03 09:31] VITALS: BP 149/73; PULSE 79; RESP 17; TEMP 36.4; O2SAT 93
--- NOTE | 2025-03-03 09:33 | MDS.RN ---
Information for the MDS was obtained from review of the clinical record, interview of resident, staff, and direct observation of resident?s care.
[2025-03-03] MEDS: APIXABAN 5 MG TABLET PO ×2 (09:44→22:20)
[2025-03-03] MEDS: Senna/Docusate Sodium 1 Tablet PO ×2 (09:44→22:24)
[2025-03-03] MEDS: 0.9% Saline Lock 10 ML Syringe IV ×2 (14:54→22:19)
[2025-03-03 20:00] VITALS: PULSE 79; O2SAT 95
[2025-03-03] MEDS: MELATONIN 10 MG TABLET PO (22:21)
[2025-03-03 22:47] VITALS: PULSE 79; RESP 16; O2SAT 93
[2025-03-04 06:39] VITALS: PULSE 64; O2SAT 95
[2025-03-04] MEDS: APIXABAN 5 MG TABLET PO ×2 (09:16→20:30)
[2025-03-04] MEDS: Senna/Docusate Sodium 1 Tablet PO ×2 (09:18→20:29)
--- NOTE | 2025-03-04 14:25 | CASEMGMT ---
Addendum entered by Kyleigh Schafer 03/04/25 15:13: SW updated and pt and reiterated HHC will contact them to schedule SOC. Addendum entered by Kyleigh Schafer 03/04/25 14:59: [facility] can accept Original Note: Social Work SW spoke with pt to discuss DC plans. Pt is voicing wishes to DC and IDT is agreeable. Pt attempted to call , but she did not answer. SW inquired about skilled HHC. Pt agreeable. SW provided list of skilled HHC agencies within geographical area, INN with insurance, that include quality and resource data via [employer] guide. Pt also asked for Dr. Mustafa's business card. SW provided. - arrived at bedside. SW spoke with about DC date. expressed some personal feelings and SW provided active listening. ultimately decided on DC 03/06 and HHC options are: [facility], [facility], [facility] & [facility]. SW to place referrals and notify of outcomes. SW educated HHC agency will contact pt for SOC date date, but typically 2-3 days after DC, pending PCP signing orders. Pt denied DME needs. to transport. - SW sent referral to [facility] via [employer]. Plan: DC home with 03/06, HHC PT/OT/SN Kyleigh Schafer BUSINESS SOLUTION ANALYST GRAIN ELEVATOR MOTOR STARTER
[2025-03-04] MEDS: 0.9% Saline Lock 10 ML Syringe IV ×2 (14:33→20:32)
[2025-03-04 15:34] VITALS: BMI 38.5
[2025-03-04 16:00] VITALS: BP 155/77; PULSE 92; RESP 18; TEMP 36.8; O2SAT 98
--- NOTE | 2025-03-04 19:29 | PCM.DC.SUM ---
Providers Date of Admission: 02/20/25 Primary Care Physician: Dr. Salvador Diaz MD Reason For Visit: SYMPTOMATIC HEART BLOCK Diagnosis Discharge Diagnosis (1) Debility: Status: Acute Code(s): R53.81 - Other malaise (2) Acute respiratory failure with hypoxia: Status: Acute Code(s): J96.01 - Acute respiratory failure with hypoxia (3) Acute heart failure with preserved ejection fraction (HFpEF): Status: Acute Code(s): I50.31 - Acute diastolic (congestive) heart failure (4) Bradycardia: Status: Acute Code(s): R00.1 - Bradycardia, unspecified (5) AV heart block: Status: Resolved Code(s): I44.30 - Unspecified atrioventricular block (6) Hypokalemia: Status: Acute Code(s): E87.6 - Hypokalemia (7) Hypocalcemia: Status: Resolved Code(s): E83.51 - Hypocalcemia (8) NSVT (nonsustained ventricular tachycardia): Status: Inactive Code(s): I47.29 - Other ventricular tachycardia (9) Fever, unknown origin: Status: Acute Code(s): R50.9 - Fever, unspecified (10) Essential (primary) hypertension: Status: Acute Code(s): I10 - Essential (primary) hypertension (11) Lymphedema: Status: Acute Code(s): I89.0 - Lymphedema, not elsewhere classified (12) Pulmonary embolism: Status: Acute Code(s): I26.99 - Other pulmonary embolism without acute cor pulmonale (13) Hyperlipidemia, unspecified: Status: Acute Code(s): E78.5 - Hyperlipidemia, unspecified (14) Neuropathic pain: Status: Acute Code(s): M79.2 - Neuralgia and neuritis, unspecified (15) Hypothyroidism: Status: Inactive Code(s): E03.9 - Hypothyroidism, unspecified Plan 79 year old male with below past medical history hospitalized for acute respiratory failure 2/2 acute HFpEF, complicated by bradycardia 2/2 AV block, NSVT, hypokalemia, hypocalcemia, fever unknown origin, lymphedema, neuropathic pain, admitted to TCU with debility, here for rehabilitation, strengthening, prior to discharge home with . Debility - PT/OT. Pain - Tylenol 1000mg q8. Bowel - senna/colace 1 tablet bid, Magnesium citrate 300mL daily prn. Adult immunization - Administer pneumonia vaccine, covid vaccine, flu vaccine as appropriate. DVT prophylaxis - Eliquis. Hypertension - Amlodipine 5mg daily, HCTZ 25mg daily. Fever of unknown origin - Augmentin 875mg po bid thru 02/23/2025. Pulmonary embolism (recurrent) - Eliquis 5mg bid. Hyperlipidemia - Atorvastatin 40mg qhs. Neuropathic pain - Gabapentin 300mg tid. Hypothyroidism - Levothyroxine 125mcg daily. Insomnia - Melatonin 10mg qhs. Nutrition - MVI 1 tablet daily. Medications at Discharge Home Medications atorvastatin 40 mg tablet 40 mg PO QHS cholesterol #90 TABLETS 09/05/16 apixaban 5 mg tablet (Eliquis) 5 mg PO BID blood thinner 03/26/24 hydrochlorothiazide 25 mg tablet 25 mg PO DAILY reduce fluid 03/26/24 levothyroxine 125 mcg tablet 125 mcg PO DAILY disorder of thyroid gland 03/26/24 CPAP - Continuous Positive Airway Pressure([facility] INFORMATIONAL USE ONLY) MARTIN 02/17/25 acetaminophen 500 mg tablet 1,000 mg (2 x 500 mg) PO Q8 #0 tabs 03/04/25 amlodipine 10 mg tablet 10 mg PO DAILY 30 days #30 tabs 03/04/25 gabapentin 300 mg capsule 300 mg PO TID 30 days #90 caps 03/04/25 losartan 100 mg tablet 100 mg PO DAILY 30 days #30 tabs 03/04/25 Hospital Course Operations None Procedures None Summary of Care Provided Minutes Spent on Discharge: 35 Hospital Course: 79 year old male with below past medical history hospitalized for acute respiratory failure 2/2 acute HFpEF, complicated by bradycardia 2/2 AV block, NSVT, hypokalemia, hypocalcemia, fever unknown origin, lymphedema, neuropathic pain, admitted to TCU with debility, here for rehabilitation, strengthening, prior to discharge home with . Discharge home with 03/06/2025, [facility] PT/OT/SN. Physical Exam Const alert General Appearance: cooperative HEENT normocephalic Eyes PERRL and EOMs intact bilaterally Neck supple, no JVD and no carotid bruits Resp normal respiratory effort, normal air movement and clear to auscultation bilaterally Cardio regular rate and regular rhythm GI normal to inspection, nondistended, normoactive bowel sounds, non-tender and non-distended Extremity normal capillary refill General Extremity: Negative for edema Skin no rashes or lesions noted General Skin Exam: no breakdown Psych affect normal Appearance: appropriate Weight / BMI Weight Weight: 125.362 kg Body Mass Index (BMI) 38.5 ABG / Lab / Microbiology Data 02/28/25 07:10 02/28/25 07:10 D/C Instructions Discharge Activity: Return to Normal Activity, May Shower and Use Walker Weight Bearing Status: Weight bearing as tolerated Call your doctor if you observe: Fever of 101 or Higher, Inability to urinate, Inability to have a bowel movement, Shortness of breath, Dizziness, Fainting spells, Swelling in the ankles, Chest pain and Uncontrolled pain DC O2, CPAP, BIPAP Needs Home O2 Discharge instructions: No Additional Instructions: Discharge home with 03/06/2025, [facility] PT/OT/SN. Meaningful Use Info Meaningful Use Meaningful Use Diagnoses (Choose all that apply): None applicable Discharge Plan Admission Admit Date/Time: 02/20/25 15:30 Primary Reason for Your Visit: Debility. Attending Provider: Wagner Mustafa Chi Primary Care Provider: Salvador Diaz Instructions Additional Instructions / Restrictions: Discharge home with 03/06/2025, [facility] PT/OT/SN. Discharge Orders/Prescriptions Prescriptions: New acetaminophen 500 mg Tablet 1,000 mg PO Q8 Qty: 0 0RF amlodipine 10 mg Tablet 10 mg PO DAILY 30 Days Qty: 30 0RF gabapentin 300 mg Capsule 300 mg PO TID 30 Days Qty: 90 0RF losartan 100 mg Tablet 100 mg PO DAILY 30 Days Qty: 30 0RF Continued atorvastatin 40 MG tablet 40 mg PO QHS Qty: 90 0RF Eliquis 5 mg tablet 5 mg PO BID levothyroxine 125 mcg tablet 125 mcg PO DAILY hydrochlorothiazide 25 mg tablet 25 mg PO DAILY CPAP - Continuous Positive Airway Pressure([facility] INFORMATIONAL USE ONLY) Patient Comments: Pt states he has a CPAP at home, DME:[facility]IRST[facility] Jacques+12 Discontinued multivitamin [Daily Multi-Vitamin] Tablet 1 tab PO DAILY aspirin [Adult Aspirin Regimen] 81 mg tablet,delayed release (DR/EC) 81 mg PO DAILY amlodipine 5 mg Tablet 5 mg PO DAILY 30 Days Qty: 30 2RF gabapentin 300 mg Capsule 300 mg PO TID Qty: 0 0RF amoxicillin-pot clavulanate 875-125 mg tablet 1 tab PO BID 3 Days Qty: 6 0RF acetaminophen [Acetaminophen Extra Strength] 500 mg tablet 1,000 mg PO TID PRN PRN (Reason: pain) 30 Days Qty: 0 0RF Referrals / Follow Up: Wagner Mustafa Chi, MD [Med Staff - Active Staff, Geriatrics] - Within 1 Week Referral Note: Transition Care Management appointment. Disposition Disposition (needs filled in before D/C Order can be placed): Home Health Service
[2025-03-04] MEDS: MELATONIN 10 MG TABLET PO (20:30)
[2025-03-05 00:42] VITALS: PULSE 80; RESP 15; O2SAT 95
[2025-03-05 07:38] VITALS: BP 131/67; PULSE 83; RESP 16; TEMP 36.4; O2SAT 94
[2025-03-05] MEDS: APIXABAN 5 MG TABLET PO ×2 (07:45→21:28)
[2025-03-05] MEDS: Senna/Docusate Sodium 1 Tablet PO ×2 (07:47→21:27)
--- NOTE | 2025-03-05 11:52 | NURSING ---
attempted to call PCP for pneumonia vaccine verification, waited on hold for approx 8 minutes.
[2025-03-05 20:00] VITALS: PULSE 84; RESP 18; O2SAT 99
[2025-03-05] MEDS: MELATONIN 10 MG TABLET PO (21:29)
[2025-03-06 06:02] VITALS: PULSE 89; RESP 16; O2SAT 98
[2025-03-06 08:06] VITALS: BP 135/78; PULSE 76; RESP 16; TEMP 36.4; O2SAT 95
[2025-03-06] MEDS: APIXABAN 5 MG TABLET PO (08:12)
[2025-03-06] MEDS: Senna/Docusate Sodium 1 Tablet PO (08:14)
--- NOTE | 2025-03-06 09:21 | CASEMGMT ---
Social Work SW completed BIMS () and PHQ-2 () for MDS assessment. Kyleigh Schafer [employer]
== END 2025-03-06 10:35 | disposition home health service (06) | DRG 291 ==
PROVIDERS: Admitting Provider Family Medicine Geriatric Medicine; PCP Family Medicine; Referring Provider Family Medicine Geriatric Medicine; Visit Provider Family Medicine Geriatric Medicine
DX: I11.0 Hypertensive heart disease with heart failure (principal); I50.31 Acute diastolic (congestive) heart failure; I26.99 Other pulmonary embolism without acute cor pulmonale; Z68.41 Body mass index [BMI] 40.0-44.9, adult; Z79.01 Long term (current) use of anticoagulants; E03.9 Hypothyroidism, unspecified; E66.01 Morbid (severe) obesity due to excess calories; G62.9 Polyneuropathy, unspecified; E78.00 Pure hypercholesterolemia, unspecified; I89.0 Lymphedema, not elsewhere classified; I44.30 Unspecified atrioventricular block; M54.31 Sciatica, right side; I99.8 Other disorder of circulatory system; Z79.899 Other long term (current) drug therapy; Z79.890 Hormone replacement therapy; G47.00 Insomnia, unspecified; Z79.82 Long term (current) use of aspirin; Z23 Encounter for immunization; R21 Rash and other nonspecific skin eruption
CPT/HCPCS: 36415; 72110; 80048; 85025; 90480; 91322; 94003; 94660; 97110; 97116; 97162; 97166; 97530; 97535; A4216

== ENCOUNTER → 2025-02-21 | Outpatient (CLI) | payer MEDICARE, OTHER, SELFPAY ==
--- NOTE | 2025-02-21 14:24 | ART_ITS ---
Reason For Study Reason For Study: BLE Pain Procedure A bilateral lower extremity continuous wave Doppler with analog waveform analysis and ankle brachial indexes. Left Segmental Pressures Left brachial= 158mmHg. Left posterior tibial artery = 195mmHg. Left dorsalis pedis artery = 176mmHg. Left digit = 87 mmHg. Right Segmental Pressures Right posterior tibial artery = 194mmHg. Right dorsalis pedis artery = 209mmHg. Right digit = 118 mmHg. Indices The right ankle brachial index by the posterior tibial artery is 1.23. The right ankle brachial index by the dorsalis pedis is 1.32. The right digital-brachial index is 0.75. The left ankle brachial index by the posterior tibial artery is 1.23. The left ankle brachial index by the dorsalis pedis is 1.11. The left digital-brachial index is 0.55. VL/Ankle Brachial Index Interpretation Summary Triphasic Doppler waveforms are noted at ankle level bilaterally. Pulse-volume recordings appear satisfactory at ankle and digital level bilaterally. Resting ankle-brachial indices are normal bilate rally. The right digital-brachial index is normal. The left digital-brachial index is mildly diminished. Arterial flow appears normal at ankle level bilaterally, and at digital level o n the right. There is evidence of mild arterial occlusive disease at digital level on the left. Ordering Physician: Wagner Mustafa Chi Referring Physician: Bret Diaz Performed By: RONNIE ARAYA [facility]
== END | disposition home or self-care (01) ==
LOC: CVS 14:24
PROVIDERS: PCP Family Medicine; Referring Provider Family Medicine Geriatric Medicine; Visit Provider Family Medicine Geriatric Medicine
DX: M79.604 Pain in right leg (principal); M79.605 Pain in left leg; R09.89 Other specified symptoms and signs involving the circulatory and respiratory systems
CPT/HCPCS: 93922

== ENCOUNTER → 2025-04-15 | Outpatient (CLI) | payer MEDICARE, OTHER, SELFPAY ==
[2025-04-15 14:05] LABS: Hematocrit 43.2 % (40-54); Hemoglobin 13.9 g/dL (13.0-16.5); Immature Granulocytes Count 0.030 X10^3/uL (0.0-0.0); Mean Corp Hgb Conc 32.2 g/dL (32-36); Mean Corpuscular Volume 90.4 fL (80-94); Mean Platelet Vol. 9.0 fl (6.2-12.0); NRBC Flagged by Analyzer 0 % (0-5); Platelet Count 300 K/mm3 (150-450); RBC Distribution Width CV 14.5 % (11.6-14.6); RBC Distribution Width SD 47.8 fl (35.1-43.9); Red Blood Count 4.78 M/mm3 (4.6-6.2); White Blood Count 9.6 K/mm3 (4.4-11.0)
[2025-04-15 15:12] LABS: AST(SGOT) 47 U/L (<=37); Alanine Aminotransfer ALT/SGPT 23 U/L (<=46); Albumin, Serum 3.9 g/dL (3.4-4.8); Alkaline Phosphatase 84 U/L (40-129); Anion Gap 12 (5-15); BUN 24 mg/dL (4-19); BUN/Creat Ratio 17.8 RATIO (10-20); Calcium,Total 9.3 mg/dL (7.6-11.0); Carbon Dioxide 25.7 mmol/L (21.0-32.0); Chloride 105 mmol/L (98-108); Globulin 3.7 g/dL (2.2-4.2); Glucose 93 mg/dL (70-99); Potassium 4.5 mmol/L (3.3-5.1)
[2025-04-15 21:55] LABS: Xtra Tube Kwok EXTRA TUBE
== END | disposition home or self-care (01) ==
LOC: POLAB3 13:54
PROVIDERS: PCP Family Medicine Geriatric Medicine; Visit Provider Family Medicine Geriatric Medicine
DX: E03.9 Hypothyroidism, unspecified (principal); I10 Essential (primary) hypertension
CPT/HCPCS: 36415; 80053; 84443; 85025